=== PATIENT | female | born 1935 | race Caucasian/White ===

== ENCOUNTER 2017-08-27 19:47 | Emergency (ER) | payer MEDICARE, SELFPAY ==
[2017-08-27 19:48] VITALS: BP 156/69; PULSE 93; RESP 17; TEMP 36.5; O2SAT 95; BMI 40.7
[2017-08-27] MEDS: Ondansetron 4 MG/2 ML Vial IV (21:28)
--- NOTE | 2017-08-27 21:35 | RAD_ITS ---
STUDY: X-RAY - RIGHT KNEE REASON FOR EXAM: Female, 82 years old. Pain in right knee. TECHNIQUE: 3 view(s) of the knee. COMPARISON: None. FINDINGS: Normal visualized distal femur. Normal visualized proximal tibia and fibula. Normal proximal tibiofibular articulation. There is mild degenerative arthrosis of the medial femorotibial compartment. There is mild degenerative arthrosis of the lateral femorotibial compartment. There is mild degenerative arthrosis of the patellofemoral articulation. There is a soft tissue prominence in the suprapatellar region suggesting a joint effusion. The soft tissue structures are unremarkable. RAD/Knee 3 Views IMPRESSION: Degenerative changes. Joint effusion. Electronically Signed: Haylie Hudson MD at 21:58 EST Tel , Service support ,
[2017-08-27 21:54] LABS: Erythrocyte Sedimentation Rate 43 mm/hr (0-30)
[2017-08-27 21:55] LABS: Absolute Lymphocyte Count 2.56 X10^3/ul (0.83-4.51); Absolute Neutrophil Count 7.5 X10^3/uL (2.0-7.7); Basophil# 0.04 X10^3/uL; Basophil% 0.4 % (0-1); Eosinophil# 0.15 X10^3/uL; Eosinophils% 1.3 % (0-5); Hematocrit 40.3 % (37-47); Hemoglobin 13.3 g/dl (12.0-15.0); Lymphocyte # 2.56 X10^3/ul (4.0); Lymphocyte % 22.9 % (19-41); Mean Corpuscular Hgb 29.4 pg (27.0-32.0); Mean Corpuscular Volume 89.2 fL (81-99); Mean Platelet Vol. 10.1 fl (6.2-12.0); Monocyte# 0.94 X10^3/uL; Monocyte% 8.4 % (0-10); Neutrophil # 7.47 X10^3/uL (2.7-7.7); Neutrophil % 66.8 % (47-70); Platelet Count 256 K/mm3 (150-450); RBC Distribution Width CV 13.7 % (11.6-14.6); RBC Distribution Width SD 44.7 fl (35.1-43.9); Red Blood Count 4.52 M/mm3 (4.2-5.4); White Blood Count 11.2 K/mm3 (4.4-11.0)
[2017-08-27 21:59] LABS: POSITIVE COUNT NO; POSITIVE DIFFERENTIAL NO; POSITIVE MORPHOLOGY NO
[2017-08-27 22:08] LABS: CPK Total, Creatine Kinase 91 U/L (26-192)
[2017-08-27 22:16] VITALS: BP 148/67; PULSE 71; RESP 15; O2SAT 94
[2017-08-27 22:17] LABS: ALB/GLOB Ratio 0.8 RATIO (0.9-2.4); AST(SGOT) 20 U/L (15-37); Alanine Aminotransfer ALT/SGPT 28 U/L (13-56); Albumin, Serum 3.5 g/dL (3.2-5.0); Alkaline Phosphatase 73 U/L (45-117); Anion Gap 9 (5-15); BUN 29 mg/dL (7-18); BUN/Creat Ratio 23.8 RATIO (10-20); Calcium,Total 9.9 mg/dL (8.5-10.1); Chloride 105 mmol/L (98-107); Creatinine, Serum 1.22 mg/dL (0.55-1.02); EST Glomerular Filtration Rate 45 mL/min (>60); Est Glom Filt Rate - Afr Amer 54 mL/min (>60); Estimated Creatinine Clearance 29.92 ml/min; Globulin 4.2 g/dL (2.2-4.2); Glucose 148 mg/dL (74-106); Potassium 4.2 mmol/L (3.5-5.1); Protein, Total 7.7 g/dL (6.4-8.2); Sodium Level 139 mmol/L (136-145)
--- NOTE | 2017-08-27 22:19 | ED.RN ---
PT SON CAME TO NURSES STATION PT C/O EPIGASTRIC AND CHEST PAIN AND NAUSEA. DR. MCLEAN INFORMED. PHENERGAN ORDERED. THIS RN PLACED PT ON MONITOR. O2 PLACED FOR PT ROOM AIR SAT IN 88%, NOW 95 ON 2L NC. PT REPORTS PAIN IS GETTING BETTER BUT IS STILL PRESENT. PT REPORTS THAT SHE HAS NOT BEEN TAKING HER MEDICATION FOR HER GERD AND HIATAL HERNIA.
--- NOTE | 2017-08-27 22:22 | EKG12_ITS ---
Test Reason : CP Blood Pressure : / mmHG Vent. Rate : 075 BPM Atrial Rate : 075 BPM P-R Int : 200 ms QRS Dur : 076 ms QT Int : 382 ms P-R-T Axes : 071 017 048 degrees QTc Int : 426 ms Normal sinus rhythm Normal ECG Confirmed by MARTINEZ LAINEZ, FREEMAN ([id number]), newspaper editor ROBIN PANG ([id number]) on 08/29/2017 2:23:39 PM Referred By: MARSHA Confirmed By:FREEMAN HENRIQUEZ MD
--- NOTE | 2017-08-27 22:31 | ED.DCSUM_ITS ---
- ER Visit Summary Date of Service: 08/27/17 Chief Complaint: [Right knee pain] History of Present Illness: The patient is a 82 F [presents to the emergency department with complaint of right knee pain that started today. Patient states that 2 weeks ago she started with pain in her left hip patient states that that pain was severe but then resolved after several days. Patient subsequently developed pain in both knees that was severe and she was going to follow-up with her primary care physician today however the pain in both knees seem to resolve today and the weather was bad so she did not go to her appointment. Patient states that the pain in the left knee has left but now she has severe pain in her right knee. Patient denies any trauma. Patient denies any fever. And was on antibiotics for urinary tract infection that she finished about a week ago. Patient states that she had an upper respiratory infection about 3 weeks ago.] Physical Examination: [HEENT-PERRLA, EOMI. Cranial nerves II through XII grossly intact. TMs clear. Mucous membranes moist. No adenopathy. Cardiovascular-regular rate and rhythm without murmur or ectopy Lungs-clear to auscultation, chest wall stable without crepitus or subcu emphysema Abdomen-normoactive bowel sounds, soft, nontender, no rebound or rigidity, no peritoneal signs. Extremities-intact ?4, normal range of motion, normal pulses, atraumatic] right knee-patient has small joint effusion noted. There is no erythema or warmth noted. Patient has pain with flexion extension of the knee. She is neurovascular intact distally with normal sensation normal pulses. Comment this exam difficult due to patient unable to tolerate. Test Results: [Rays of the right knee showed a small joint effusion as well as degenerative changes. CBC with differential her white count 11.2, hemoglobin 13 , hematocrit 40, platelets 256. Chemistries were unremarkable. LFTs were normal. CPK was 91. Sed rate was elevated at 43.] Emergency Department Course and Treatment: [Patient was medicated with morphine and Zofran initially and she continued to complain of significant nausea and was given a dose of Phenergan. Patient started complaining of some epigastric discomfort therefore the nursing staff ordered an EKG that showed a sinus rhythm with a ventricular rate of 75 bpm with no acute ST segment changes. Patient was medicated with prednisone 20 mg p.o.] Treatment Plan: [I had a discussion with patient as I suspect her symptoms may be possibly due to gout. Patient is willing to take prednisone for 3 days and she is advised to monitor her blood sugars. Will be given a prescription for [place] for pain. Patient advised to follow-up with her primary care physician within next 3-5 days.] Disposition: [Discharged to home in stable condition] Impression: [Right knee pain-suspect gouty arthritis] This note was generated with [employer] dictation software. It may contain incorrect words, spelling, and punctuation that were not noted in review of the chart prior to signing ED Disposition - Plan for ED Patient: Chief Complaint: Lower Extremity Injury Referrals: Philip Todd MD [Primary Care Provider] -
--- NOTE | 2017-08-27 22:33 | DCINST.ED_ITS ---
ED Disposition - Plan for ED Patient: Chief Complaint: Lower Extremity Injury Instructions: ED Knee Pain [facility] Prescriptions: Hydrocodone Bitart/Apap 5-325 [[place] 5/325] 1 - 2 tab PO Q4H PRN PRN 5 Days #20 tab PRN Reason: Pain Prednisone 10 mg PO BID #6 tab Referrals: Philip Todd MD [Primary Care Provider] - 3-5 Days
[2017-08-27] MEDS: HYDROcodone Bitartrate/Apap 5/325 Tablet PO (22:55)
[2017-08-27 22:58] VITALS: BP 165/64; PULSE 72; RESP 21; O2SAT 98
--- NOTE | 2017-08-27 23:04 | ED.RN ---
THIS RN REVIEWED PT HOME GOING PAPERWORK AND PRESCRIPTIONS. PT EDUCATED ON HOME PACK MEDICATION AND SIDE EFFECTS. PT VERBALIZES UNDERSTANDING OF INSTRUCTIONS AND MEDICATIONS. THIS RN D/C IV AND COVERED WITH 2X2 GAUZE DRESSING. MINIMAL BLEEDING NOTED. THIS RN ASSISTED PT IN GETTING DRESSED AND PLACED IN WHEELCHAIR. PT WHEEL TO FAMILY VEHICLE BY KHUSHBU LYNN. PT TO FOLLOW UP WITH DR. KUMAR.
== END 2017-08-27 23:14 | disposition home or self-care (01) ==
PROVIDERS: Emergency Provider Emergency Medicine; Family Provider Family Medicine; PCP Family Medicine
DX: M25.561 Pain in right knee (principal); R11.0 Nausea; R10.13 Epigastric pain; I10 Essential (primary) hypertension; E78.00 Pure hypercholesterolemia, unspecified; E11.9 Type 2 diabetes mellitus without complications; Z79.84 Long term (current) use of oral hypoglycemic drugs; Z79.82 Long term (current) use of aspirin; Z79.899 Other long term (current) drug therapy
CPT/HCPCS: 73562; 80053; 82550; 85025; 85652; 93005; 96374; 96375; 99285; A4216; J2405

== ENCOUNTER → 2017-10-31 14:30 | Outpatient (CLI) | payer MEDICARE, SELFPAY ==
--- NOTE | 2017-10-31 15:15 | EKG12_ITS ---
Test Reason : PRE OP Blood Pressure : / mmHG Vent. Rate : 076 BPM Atrial Rate : 076 BPM P-R Int : 186 ms QRS Dur : 084 ms QT Int : 372 ms P-R-T Axes : 045 024 067 degrees QTc Int : 418 ms Normal sinus rhythm Normal ECG Confirmed by RUPERTO LAINEZ, GEOVANNI ([id number]), video effects editor ROBIN PANG ([id number]) on 11/04/2017 2:04:25 PM Referred By: Baljit Pimentel Confirmed By:GEOVANNI HICKEY MD
[2017-10-31 17:15] LABS: Hemoglobin 13.9 g/dl (12.0-15.0); Mean Corp Hgb Conc 33.9 g/gl (32-36); Mean Corpuscular Hgb 30.2 pg (27.0-32.0); Mean Corpuscular Volume 88.9 fL (81-99); Mean Platelet Vol. 10.5 fl (6.2-12.0); Platelet Count 294 K/mm3 (150-450); RBC Distribution Width CV 14.3 % (11.6-14.6); RBC Distribution Width SD 46.1 fl (35.1-43.9); Red Blood Count 4.61 M/mm3 (4.2-5.4); White Blood Count 8.6 K/mm3 (4.4-11.0)
[2017-10-31 17:20] LABS: Scan Indicated on CBC? Y/N NO
[2017-10-31 17:28] LABS: Anion Gap 8 (5-15); BUN 18 mg/dL (7-18); BUN/Creat Ratio 16.4 RATIO (10-20); Calcium,Total 9.3 mg/dL (8.5-10.1); Chloride 107 mmol/L (98-107); EST Glomerular Filtration Rate 51 mL/min (>60); Est Glom Filt Rate - Afr Amer 61 mL/min (>60); Glucose 101 mg/dL (74-106); Potassium 3.9 mmol/L (3.5-5.1); Sodium Level 141 mmol/L (136-145)
== END ==
PROVIDERS: Family Provider Family Medicine; PCP Family Medicine; Visit Provider Physician Assistant
DX: Z01.818 Encounter for other preprocedural examination (principal); Z01.810 Encounter for preprocedural cardiovascular examination
CPT/HCPCS: 36415; 80048; 85027; 93005

== ENCOUNTER → 2018-06-19 10:24 | Outpatient (CLI) | payer MEDICARE, SELFPAY ==
--- NOTE | 2018-06-19 10:26 | CDU_ITS ---
Reason For Study: Carotid Stenosis Rt. Velocities/BP Lt. Velocities/BP Prox CCA 119/8.64 cm/sec. Prox CCA 70.7/14.1 cm/sec. Mid CCA 70.9/11.1 cm/sec. Mid CCA 55.7/12.3 cm/sec. Dist CCA 83.8/8.79 cm/sec. Dist CCA 206/30.1 cm/sec. Prox ICA 83.8/13.5 cm/sec. Prox ICA 176/44.9 cm/sec. Mid ICA 83.3/14.7 cm/sec. Mid ICA 130/14.1 cm/sec. Dist ICA 77.4/17.6 cm/sec. Dist ICA 87.9/20.5 cm/sec. Rt. ICA/CCA = 1.00. Lt. ICA/CCA = 2.49. Prox ECA 429/13.5 cm/sec. Prox ECA 294 cm/sec. Rt. Vert. 57/9.82 cm/sec. Lt. Vert. 28.8/4.76 cm/sec. Right Extracranial There is homogeneous, smooth atherosclerotic plaque noted in the right common carotid artery. The right common carotid artery is tortuous. There is heterogeneous, smooth atherosclerotic plaque noted in the right internal carotid artery. There is heterogeneous, irregular atherosclerotic plaque noted in the right external carotid artery. Antegrade flow is noted in the right vertebral artery. Left Extracranial There is heterogeneous, irregular atherosclerotic plaque noted in the left common carotid artery. There is heterogeneous, irregular atherosclerotic plaque noted in the left internal carotid artery. There is heterogeneous, irregular atherosclerotic plaque noted in the left external carotid artery. Antegrade flow is noted in the left vertebral artery. Procedure Carotid Duplex 16101. Exam performed in department. 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 50-69% stenosis left internal carotid--closer to 50% Moderate to severe stenosis left external carotid Patent and antegrade vertebrals bilaterally Ordering Physician: Michael Michel Referring Physician: Philip Todd Performed By: Andrew BOLTON RVT, Carrie and Student
--- OUTSIDE RECORDS SUMMARY | 2018-08-14 05:56 | XMS RPT_ITS ---
:1935 Author Organization OHIP Care Team Providers Name Role Phone Rodríguez CAMPBELL (PA-C) Attending Unavailable PHILIP TODD Attending Unavailable Rodríguez CAMPBELL (PA-C) Referring Unavailable ANTHONY NUNEZ Attending Unavailable PHILIP TODD Referring Unavailable PHILIP TODD Attending Unavailable ANTHONY NUNEZ Attending Unavailable ANTHONY NUNEZ Referring Unavailable ANTHONY NUNEZ Referring Unavailable PHILIP TODD Referring Unavailable Rodríguez CAMPBELL (PA-C) Referring Unavailable DAVEY CONCEPCION ([facility]) Attending Unavailable Rodríguez CAMPBELL (PA-C) Attending Unavailable Rodríguez CAMPBELL (PA-C) Referring Unavailable Rodríguez CAMPBELL (PA-C) Attending Unavailable PHILIP TODD Referring Unavailable Rodríguez CAMPBELL (PA-C) Attending Unavailable PHILIP TODD Referring Unavailable PHILIP TODD Referring Unavailable PHILIP TODD Attending Unavailable Rodríguez CAMPBELL (PA-C) Referring Unavailable PHILIP TODD Referring Unavailable PHILIP TODD Attending Unavailable CELIO MOISE DPRodríguez Admitting Unavailable CELIO MOISE DPRodríguez Attending Unavailable CELIO MOISE DPM Primary Care Unavailable PHILIP TODD Consulting Unavailable PROVIDER, UNKNOWN Consulting Unavailable Anand, Michael Attending Unavailable Cebul, Michael Referring Unavailable Alvordton, Philip Primary Care Unavailable Cebul, Michael Consulting Unavailable Cebul, Michael Attending Unavailable Peyton, Philip Referring Unavailable Cebul, Michael Attending Unavailable Cebul, Michael Referring Unavailable Peyton, Philip Primary Care Unavailable Warren, Brent Attending Unavailable Baljit Pimentel Referring Unavailable Loren, Baljit Attending Unavailable Baljit Pimentel Referring Unavailable Peyton, Philip Primary Care Unavailable Peyton, Philip Primary Care Unavailable Lisa Mariscal Attending Unavailable PROBLEMS PROBLEMS DATE TYPE CONDITION / CODE ATTENDING STATUS SOURCE 06/19/2018 Unknown I65.23 - Occlusion Cekeri, Michael Active [place] and stenosis of Community bilateral carotid Hospital arteries / Repository I65.23(ICD-10) 06/04/2018 Active Dorsalgia, Active [facility] unspecified / [facility] [place] M54.9(ICD-10) Repository 06/04/2018 Active Pain in right NA Active [facility] shoulder / [facility] [place] M25.511(ICD-10) Repository 05/29/2018 Active 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 [facility] [place] therapy / Repository Z79.899(ICD-10) 02/09/2018 Active Disorder of bone, NA Active [facility] unspecified / [facility] [place] M89.9(ICD-10) Repository 02/09/2018 Active Disorder of NA Active [facility] cartilage, [facility] [place] unspecified / Repository M94.9(ICD-10) 02/09/2018 Active Stress fracture, Active [facility] right tibia, [facility] [place] sequela / Repository M84.361S(ICD-10) 07/31/2007 Active Essential Active [facility] (primary) [facility] [place] hypertension / Repository I10(ICD-10) 12/16/2017 Unknown I48.0 - Paroxysmal Warren, Brent Active [facility] atrial Community fibrillation / Hospital I48.0(ICD-10) Repository 09/29/2017 Active 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, [facility] [place] right knee / Repository M17.11(ICD-10) 09/18/2017 Active Unknown / ANTHONY NUNEZ Active [facility] UNK(Unknown) [place] Repository 08/12/2017 Active Chronic kidney NA Active [facility] disease, stage 3 [facility] [place] (moderate) / Repository N18.3(ICD-10) 09/03/2017 Active 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 / E11.21(ICD-10) 09/03/2017 Active Cramp and spasm / NA Active [facility] R25.2(ICD-10) [place] Repository 09/03/2017 Active Pain in right knee NA Active [facility] / M25.561(ICD-10) [place] Repository 08/28/2017 Unknown M25.561 - Pain in Ungur, Remus Active [place] right knee / [facility] M25.561(ICD-10) Hospital Repository PROCEDURES PROCEDURES No Procedure Records FoundRESULTS RESULTS SURGERY VISIT REPORT Observed: 06/26/2018 Status: F Source: [place] 4:48 PM [facility] REPOSITORY [facility] [address] [place] [address] [address] [place] [address] OFFICE VISIT Date of Service: 06/26/18 MR#: [id number] Acct: [id number] Name: DEBBIE KENNEY Rep #: [id number] : 1935 Provider: Michael Michel MD Age/Sex: 82/F Location: [facility] Status: Signed Intake Vital Signs06/26/18 Height 5 ft 3 in 06/26/18 Weight: 229 lb 5 oz 06/26/18 Body Mass Index (BMI) 40.6 06/26/18 Blood Pressure 162/68 H Intake Visit Reasons: 1 YR F/U Carotid US [facility] 06/19 Chief Complaint: yearly carotid US 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: No Is patient in pain?: No Allergies morphine Adverse Reaction (Intermediate, Verified 06/26/18 13:12) mental status change meperidine HCl [From Demerol] Adverse Reaction (Mild, Verified 06/26/18 13:12) mental status change Medications Ascorbic Acid [Vitamin C] 500 mg PO DAILY@0800 07/29/14 [History Confirmed 06/26/18] Calcium Carb/Vitamin D [Os-Syd 500MG + D] 1 tab PO DAILY@0800 07/29/14 [History Confirmed 06/26/18] Cimetidine [Tagamet Hb] 200 mg PO DAILY 07/29/14 [History Confirmed 06/26/18] Latanoprost 0.005% [Xalatan Opthalmic] 1 drp EACH EYE QHS 07/29/14 [History Confirmed 06/26/18] Lisinopril [Zestril] 10 mg PO DAILY 07/29/14 [History Confirmed 06/26/18] [place]-3 Fatty Acids/Fish Oil [[place] 3 1,000 mg Softgel] 1 ea PO DAILY 07/29/14 [History Confirmed 06/26/18] glipiZIDE [Glucotrol] 5 mg PO DAILY@0730 07/29/14 [History Confirmed 08/27/17] Nateglinide [Starlix] 60 mg PO TID 08/27/17 [History Confirmed 06/26/18] hydroCHLOROthiazide [Hydrochlorothiazide] 12.5 mg PO DAILY 08/27/17 [History Confirmed 08/27/17] ascorbic acid (vitamin C) 500 mg capsule mg PO cap 06/26/18 [History Confirmed 06/26/18] aspirin 81 mg chewable tablet 81 mg PO .qod tab 06/26/18 [History Confirmed 06/26/18] cinnamon bark 500 mg capsule mg PO cap 06/26/18 [History Confirmed 06/26/18] metoprolol succinate ER 50 mg tablet,extended release 24 hr 50 mg PO DAILY 06/26/18 [History Confirmed 06/26/18] minerals tablet tab PO tab 06/26/18 [History Confirmed 06/26/18] Is last menstrual period known: No Post menopausal: Yes Patient : No PFSH Medical History Bilateral carotid artery stenosis (Acute) Bilateral extracranial carotid artery stenosis (Acute) GERD (gastroesophageal reflux disease) (Acute) Hyperlipidemia (Acute) HTN (hypertension) (Chronic) Surgical History History of cataract extraction (Acute) History of cholecystectomy (Acute) History of hysterectomy (Acute) History of umbilical hernia repair (Acute) Family History Brother Diabetes Heart disease Hypertension Colon cancer Mother Hypertension Social History Smoking Status: Never smoker HPI HPI HPI: DEBBIE KENNEY, is a 82 F who presents to the office today for surgical follow-up regarding extracranial carotid artery occlusive disease. 82-year-old Joaquin female. At the [facility] on June 19, 2018 she had bilateral carotid duplex imaging. Peak systolic velocity involving the right internal carotid is 83 cm/s. Flow consistent with less than 50% stenosis. There is severe stenosis of the right external carotid. On the left peak systolic velocity within the distal common carotid is 206 cm/s and within the proximal internal carotid is 176 cm second peak systolic consistent with 50- 69% stenosis. This is compared to a previous examination performed April 24, 2017. The velocities are essentially unchanged bilaterally. She is not had any hospitalizations or central neurologic symptoms since her last visit a year ago. The patient however states that she has come off of her statin medication. She feels that she has done a lot of research and that the consequences of the statin medications outweigh the benefits. ROS General General: No weight change, appetite, fatigue, colon cancer, breast cancer or weakness HEENT HEENT: Yes eye surgery; no difficulty swallowing, eye injury, swollen glands or hoarseness Endo Endocrine: Yes diabetes mellitus; no thyroid disease, thyroid cancer, Hair loss, heat intolerance or cold intolerance Musc Musculoskeletal: Yes back problems and arthritis; no rheumatoid arthritis, gout or joint pain Cardio Cardiovascular: Yes high blood pressure; no murmur, pacemaker, heart disease, atrial fibrillation, heart attack, heart stent, palpitations, shortness of breat with exertion or chest pain Resp Respiratory: No shortness of breath, No sleep apnea, No cough, No COPD, No asthma, No emphysema, No wheezing Gastro Gastrointestinal: No abdominal pain, No nausea or vomiting, No diarrhea, No constipation, No blood in stool, Yes acid reflux, No hemorrhoids, No ulcers, No gallbladder problem, No black,tarry stools Star Hematologic: No blood thinners, No blood disorders, No bleeding, No anemia, No blood clots Neuro Neurologic: No weakness Exam Neck Other: Neck is supple, nontender, carotids are 2+ I do not detect a carotid bruit Cardio Heart Sounds: no murmurs Assessment AND Plan Problems 1. Bilateral carotid artery stenosis I65.23 Plan No hemodynamically significant disease involving the right extracranial internal carotid although the right external carotid has severe stenosis. Stable 50-69% stenosis of the left internal carotid unchanged from 1 year ago. Asymptomatic patient. It is of note that I have advised the patient that statin medication is typically recommended to help stabilize carotid plaque and limit progression of disease. She is adamant that she will not be resuming that medication. She is interested however in following up on her carotid occlusive disease. We will obtain carotid duplex imaging at 1 year. She has had an opportunity to ask and have questions answered. She is aware of her increased risk for stroke. She has had an opportunity to ask and have questions answered. I very much appreciate the ongoing opportunity of assisting with her surgical care CC: Dr. Philip Michel M.D., F.A.C.S. Coding Level of Care Code Off vis,est,level 2 Diagnoses Bilateral carotid artery stenosis I65.23 06/26/18 1648 <Electronically signed by Michael Michel MD> Date Michael Michel MD Cosigner Signature: Date (if applicable) CC: Philip Todd MD PROGRESS Observed: 06/26/2018 Status: COMPLETED Source: [place] 3:11 PM [facility] REPOSITORY HNO ID: [id number] Author: Philip Todd Service: (none) Author Type: Physician Type: Progress Notes Filed: 06/26/2018 3:20 PM Note Text: Increase to 20 mg and recheck in two weeks. PROGRESS Observed: 06/26/2018 Status: COMPLETED Source: [place] 3:02 PM [facility] REPOSITORY HNO ID: [id number] Author: Lizandro Emerson Ma Service: (none) Author Type: (none) Type: Progress Notes Filed: 06/26/2018 3:20 PM Note Text: Patient presents for blood pressure check. True BP done with average of 144/60. Patient did bring list of b/p from home. True BP and patient's list given to Dr. Todd for review. Per Dr. Todd, increase Lisinopril to 20 mg daily and call back in two weeks with b/p readings. CNOV Observed: 06/26/2018 Status: COMPLETED Source: [place] 2:40 PM [facility] REPOSITORY Office Visit (FAMPWS) DEBBIE KENNEY ([id number]) 1935 F Date Time Provider Department 06/26/18 2:40 PM [facility] During your visit today, we recorded the following information about you: Lizandro Emerson Ma 06/26/2018 3:20 PM Signed Patient presents for blood pressure check. True BP done with average of 144/60. Patient did bring list of b/p from home. True BP and patient's list given to Dr. Todd for review. Per Dr. Todd, increase Lisinopril to 20 mg daily and call back in two weeks with b/p readings. Philip Todd MD 06/26/2018 3:20 PM Signed Increase to 20 mg and recheck in two weeks. Referring Provider: SELF [200] Allergies As of Date: 06/26/2018 Noted Allergy Reaction DEMEROL (MEPERIDINE (PF)) 07/11/2005 1 - Mental Status Change LEVAQUIN (LEVOFLOXACIN) 08/11/2014 8 - GI Upset MORPHINE 01/28/2018 11 - Vomiting Date Reviewed: 06/04/2018 Reviewed by: Omaira Corona Ma - Fully Assessed Reason for Visit: Blood Pressure Check [195] Primary Visit Diagnosis:Hypertension, unspecified type [I10] Other Visit Diagnoses:Elevated blood pressure reading [R03.0] Essential hypertension, benign [I10] Order(s):lisinopril (ZESTRIL, PRINIVIL) 20 mg tabletTake 1 tablet by mouth once daily.Disp: 30 tabletRfl: 3 Prescriptions as of 06/26/2018 Sig: LISINOPRIL 20 MG TABLET Take 1 tablet by mouth once d* METOPROLOL SUCCINATE ER 50 MG* Take 1 tablet by mouth once d* NATEGLINIDE 60 MG TABLET Take 1 tablet by mouth three * ACETAMINOPHEN 500 MG CAPSULE Take 1,000 mg by mouth as nee* COMPOUNDED PRESCRIPTION Primal Force for joints COMPOUNDED PRESCRIPTION Artery Cleanse COMPOUNDED PRESCRIPTION Cardio Jackson Healthy heart* OMEGA 0-KYZ-[id number]-OTHER OM3-D3 * Take by mouth. ASPIRIN 81 MG TABLET,DELAYED * Take 81 mg by mouth every oth* CINNAMON BARK 500 MG CAPSULE Take 1 capsule by mouth once * ASCORBIC ACID (VITAMIN C) 500* Take 1 tablet by mouth once d* CALCIUM CARBONATE 500 MG (1,2* Take one(1) tablet daily. TAGAMET 300 MG TABLET Take one(1) tablet daily. XALATAN 0.005 % EYE DROPS one drop both eyes q hs Problem List As Of Date 06/26/2018 Noted Resolved DERMATOPHYTOSIS OF NAIL [B35.1] INVALID FOR* LUMBAGO [M54.5] PERS HX COLONIC POLYPS [Z86.010] More... DIVERTICULOSIS OF COLON W/O BLEED [K57.30] More... Unspecified hemorrhoids without mention of comp* 03/14/2016 More... 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 Medications Discontinued During This Encounter lisinopril (ZESTRIL, PRINIVIL) 10 mg* 90 t* 1 06/16/2018 06/26/2018 Route: ORAL Sig: Take 1 tablet by mouth once daily. Disc: Adjust Sig - Block E-Cancel Follow-up and Disposition History Recorded Encounter Status:Closed by LIZANDRO EMERSON MA on 06/26/18 CAROTID DUPLEX Observed: 06/19/2018 Status: F Source: [place] ULTRASOUND 2:05 PM [facility] REPOSITORY [facility] Cardiovascular Services [address] [place] [id number] Carotid Duplex Ultrasound 06/19/18 1030 MR#: [id number] Acct: [id number] Name: DEBBIE KENNEY Rep #: [id number] : 1935 82 From: Michael Michel MD Attending Dr: Michael Michel MD Status: REG CLI Ordering Dr: Michael Michel MD Date: 06/19/18 Location: [facility] Sex: F C Admitted: Reason For Study: Carotid Stenosis Rt. Velocities/BP Lt. Velocities/BP Prox CCA 119/8.64 cm/sec. Prox CCA 70.7/14.1 cm/sec. Mid CCA 70.9/11.1 cm/sec. Mid CCA 55.7/12.3 cm/sec. Dist CCA 83.8/8.79 cm/sec. Dist CCA 206/30.1 cm/sec. Prox ICA 83.8/13.5 cm/sec. Prox ICA 176/44.9 cm/sec. Mid ICA 83.3/14.7 cm/sec. Mid ICA 130/14.1 cm/sec. Dist ICA 77.4/17.6 cm/sec. Dist ICA 87.9/20.5 cm/sec. Rt. ICA/CCA = 1.00. Lt. ICA/CCA = 2.49. Prox ECA 429/13.5 cm/sec. Prox ECA 294 cm/sec. Rt. Vert. 57/9.82 cm/sec. Lt. Vert. 28.8/4.76 cm/sec. Right Extracranial There is homogeneous, smooth atherosclerotic plaque noted in the right common carotid artery. The right common carotid artery is tortuous. There is heterogeneous, smooth atherosclerotic plaque noted in the right internal carotid artery. There is heterogeneous, irregular atherosclerotic plaque noted in the right external carotid artery. Antegrade flow is noted in the right vertebral artery. Left Extracranial There is heterogeneous, irregular atherosclerotic plaque noted in the left common carotid artery. There is heterogeneous, irregular atherosclerotic plaque noted in the left internal carotid artery. There is heterogeneous, irregular atherosclerotic plaque noted in the left external carotid artery. Antegrade flow is noted in the left vertebral artery. Procedure Carotid Duplex [id number]. Exam performed in department. 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 50-69% stenosis left internal carotid--closer to 50% Moderate to severe stenosis left external carotid Patent and antegrade vertebrals bilaterally Ordering Physician: Michael Michel Referring Physician: Philip Todd Performed By: Andrew RDCS, BETSY, Viri and Student 06/19/18 1404 Date iMchael Michel MD CC: Michael Michel MD; Philip Todd MD Date Dictated: 06/19/18 1030 Date Transcribed: 06/19/18 1404 Legal Support Specialist: Signed XR SHLDR >/=3V Observed: 06/04/2018 Status: F Source: [place] AP/AIDAN AP/OTHR RT 11:46 AM [facility] REPOSITORY * * *Final Report* * * DATE OF EXAM: Jun 04 2018 11:46AM WOX [id number] - XR SHLDR >/=3V AP/AIDAN AP/OTHR RT / PROCEDURE REASON: Acute pain of right shoulder * * * * Physician Interpretation * * * * Right shoulder HISTORY: Shoulder pain FINDINGS: Three views were performed. No evidence of acute fracture or dislocation. Glenohumeral joint space: Marginal spurring of the glenoid without joint space narrowing. Acromio-humeral interval: within normal limits. No evidence of a subacromial spur. Acromio-clavicular joint: Within normal limits IMPRESSION: Mild glenohumeral degenerative joint disease Legal Support Specialist: [facility] Transcribe Date/Time: Jun 04 2018 12:19P Dictated by : ROB GUERRERO MD This examination was interpreted and the report reviewed and electronically signed by: ROB GUERRERO MD on Jun 04 2018 12:21PM EST [id number] XR RIB/CHST 3V AP Observed: 06/04/2018 Status: F Source: [place] RIB/OBL/CHST R 11:46 AM [facility] REPOSITORY * * *Final Report* * * DATE OF EXAM: Jun 04 2018 11:46AM WOX [id number] - XR RIB/CHST 3V AP RIB/OBL/CHST R / PROCEDURE REASON: Upper back pain * * * * Physician Interpretation * * * * RIGHT RIBS History: Upper back pain Findings: No evidence of acute fracture. No evidence of pneumothorax or effusion. IMPRESSION: No acute finding Legal Support Specialist: [facility] Transcribe Date/Time: Jun 04 2018 12:21P Dictated by : ORB GUERRERO MD This examination was interpreted and the report reviewed and electronically signed by: ROB GUERRERO MD on Jun 04 2018 12:23PM EST [id number] PROGRESS Observed: 06/04/2018 Status: COMPLETED Source: [place] 11:24 AM [facility] REPOSITORY HNO ID: [id number] Author: Delores Moreno Service: (none) Author Type: (none) Type: Progress Notes Filed: 06/04/2018 11:47 AM Note Text: Radiology Service Progress Note PATIENT NAME: Debbie Kenney DATE OF SERVICE: June 04, 2018 TIME: 11:24 AM PATIENT IDENTITY VERIFICATION COMPLETED USING TWO (2) METHODS: Patient confirmed name verbally and Date of . PATIENT GENDER DATA: Female. status: : No status: NO. PATIENT RELEVANT IMPLANT DATA REVIEWED: Not Applicable RADIOLOGY DEPARTMENT: General X-ray: Exam(s) Completed: Rib X-Ray: Right Upper Extremity X-Ray(s): Shoulder, AP / TRUE AP / AXILLARY right : PERIPHERAL IV DATA: Not applicable SIGNED BY: Delores Moreno June 04, 2018 11:24 AM PROGRESS Observed: 06/04/2018 Status: COMPLETED Source: [place] 10:41 AM [facility] RE[facility] O ID: [id number] Author: Philip Todd Service: (none) Author Type: Physician Type: Progress Notes Filed: 06/04/2018 12:05 PM Note Text: Patient presents with: F/U 3 Month HPI: Patient presents today for office visit for follow up. HYPERTENSION:bp is up today. No chest pain or edema. No palpitations. DM:sugars have been stable. No hypoglycemic spells. HLD: she declines going back on the statin drug. She knows risks of not treating. OA:knee still bother her at times. Using walker today PANCREAS: recommended repeat MRI of the pancreas., she declines. Understands risks of doing so. Wants to wait on spring. Wants to see if she is still here. Having issues with her right shoulder. She is having worsening issues with it. No trauma. Worse with movement. Tender in the anterior shoulder. No breast pain. Having issues with her back. In the thoracic region. Worse with cough or movement. No issues urinating. No radiation of the pain. No new shortness of breath. Due for carotid follow up. Had seen Dr. Michel. Offered to set her up for follow up Component Latest Ref Rng AND Units 01/28/2018 05/29/2018 Glucose 74 - 99 mg/dL 125 (H) BUN 7 - 21 mg/dL 20 Creatinine 0.58 - 0.96 mg/dL 1.08 (H) Sodium 136 - 144 mmol/L 139 Potassium 3.7 - 5.1 mmol/L 4.6 Chloride 97 - 105 mmol/L 102 CO2 22 - 30 mmol/L 25 Anion Gap 9 - 18 mmol/L 12 Calcium 8.5 - 10.2 mg/dL 9.9 eGFR- 59 eGFR-All Other Races . 49 Cholesterol, Total <200 mg/dL 204 (H) Triglyceride <150 mg/dL 209 (H) HDL Cholesterol >39 mg/dL 41 LDL Cholesterol <100 mg/dL 121 (H) Non HDL Cholesterol <130 mg/dL 163 (H) Fasting Time hrs 16 VLDL Cholesterol <30 mg/dL 42 (H) TC:HDL Ratio <5.10 4.98 LDL:HDL Ratio <2.54 2.95 (H) Hemoglobin A1C 4.3 - 5.6 % 6.3 (H) Estimated Average Glucose mg/dL 134 MEDICATIONS: Current Outpatient Prescriptions: metoprolol succinate ER (TOPROL XL) 50 mg 24 hr tablet Take 1 tablet by mouth once daily. lisinopril (ZESTRIL, PRINIVIL) 10 mg tablet Take 1 tablet by mouth once daily. nateglinide (STARLIX) 60 mg tablet Take 1 tablet by mouth three times daily before meals. Acetaminophen 500 mg cap Take 1,000 mg by mouth as needed. COMPOUNDED PRESCRIPTION Primal Force for joints COMPOUNDED PRESCRIPTION Artery Cleanse COMPOUNDED PRESCRIPTION Cardio Jackson Healthy heart/arteries OMEGA 0-QTC-GDJ-OTHER OM3-D3 ORAL Take by mouth. aspirin, enteric coated (ASPIRIN, ENTERIC COATED) 81 mg EC tablet Take 81 mg by mouth every other day. Cinnamon Bark (CINNAMON) 500 mg ORAL Cap Take 1 capsule by mouth once daily. ascorbic acid (VITAMIN C) 500 mg ORAL tablet Take 1 tablet by mouth once daily. calcium-vitamin D 500 mg(1,250mg) -200 unit ORAL per tablet Take one(1) tablet daily. cimetidine(TAGAMET 300 MG TAB) Take one(1) tablet daily. XALATAN 0.005 % EYE DROPS one drop both eyes q hs No current facility-administered medications for this visit. 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 - Benign neoplasm of colon - Diverticulosis of colon (without mention of hemorrhage) Diverticulosis - Glaucoma - HTN (hypertension) - Hyperlipidemia - Left carotid stenosis checking yearly - Lumbago - Macular pucker of both eyes stable - Other specified glaucoma - Posterior capsule opacification OD - Pseudophakia of both eyes stable - Ptosis of eyelid OU-stable - Snoring - Type II or unspecified type diabetes mellitus without mention of complication, not stated as uncontrolled PAST SURGICAL HISTORY Procedure Laterality Date - CATARACT EXTRACTION HX Bilateral 12 - COLONOSCOP W/ OR W/O [facility] SPEC 03/26/02 Colonoscopy - COLONOSCOP W/ OR W/O [facility] SPEC 05/18/2008 Colonoscopy - COLONOSCOP W/ OR W/O [facility] SPEC 01/13/14 Colonoscopy - REMOVAL GALLBLADDER 97 Cholecystectomy - REPAIR ING HERNIA,5+Y/O,REDUCIBL Hernia repair, inguinal - VAGINAL HYSTERECTOMY 77 Hysterectomy, vaginal FAMILY HISTORY Problem Relation Age of Onset - Heart Mother pacemaker - Hypertension Mother - Diabetes Sister - Colon Cancer Brother - Heart Brother mi - Diabetes Brother - Diabetes Father - Heart Father - Cancer Brother lung - Cancer Brother pancrease Social History Marital status: Spouse name: Years of education: Number of children: Social History Main Topics Smoking status: Never Smoker Smokeless tobacco: Never Used Alcohol use: No Drug use: No Reviewed current medications, allergies, past medical history, surgical history, family history and social history today. REVIEW OF SYSTEMS All other reviewed and negative other than HPI. HEALTH MAINTENANCE: Reviewed health maintenance issues today and recommended the following in detail. DTAP,TDAP,TD(2 - Tdap) due on 11/18/2001 INFLUENZA(1) due on 03/21/2018 URINE ALBUMIN:CREATININE RATIO due on 04/11/2018 FECAL OCCULT BLOOD due on 05/01/2018 VITALS: BP 166/74 Pulse 76 Wt 103.9 kg (229 lb) BMI 40.57 kg/m? Last 4 Encounter Wt Readings: Date: Wt: 06/04/2018 103.9 kg (229 lb) 02/05/2018 106.6 kg (235 lb) 01/28/2018 105.2 kg (232 lb) 09/25/2017 106.1 kg (234 lb) PHYSICAL EXAMINATION: General appearance: Well appearing, alert, in no acute distress, well-hydrated, well nourished. Skin: Skin color, texture, turgor normal, no suspicious rashes or lesions Head: Normocephalic, no masses, lesions, tenderness or abnormalities Chest wall: tender over posterior chest Lungs: lungs clear to auscultation. No wheezing, rhonchi, rales Heart: RRR without murmur, gallop, or rubs. No ectopy Abdomen: Normal abdominal exam, Abdomen soft, non-tender. Bowel sounds normal. No masses, organomegaly Extremities: No deformities, edema, skin discoloration, clubbing or cyanosis. Good capillary refill. Musculoskeletal: No joint swelling, deformity, or tenderness Shoulder: tender over the anterior shoulder. Negative range of motion. ASSESSMENT/PLAN: 1. Chronic renal insufficiency, stage 3 (moderate) (HCC) - ICD9: 585.3, ICD10: N18.3 (primary diagnosis) - call if any issues. 2. Pancreatic cyst - ICD9: 577.2, ICD10: K86.2 - will follow. Declines for now. 3. Bilateral carotid artery disease, unspecified type (HCC) - ICD9: 447.9, ICD10: I77.9 - see surgery. - CONSULT TO VASCULAR SURGERY 4. 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thy, unspecified whether predatory animal exterminator insulin use (HCC) - ICD9: 250.40, 583.81, ICD10: E11.21 Controlled. - Continue current medications - HGB A1C 5. Neuropathy (HCC) - ICD9: 355.9, ICD10: G62.9 - stable. 6. Mixed hyperlipidemia - ICD9: 272.2, ICD10: E78.2 - to be determined upon return of lab results - Continue current medication. - COMP METABOLIC PANEL - LIPID PANEL BASIC 7. Essential hypertension, benign - ICD9: 401.1, ICD10: I10 - suboptimal control - Goal of BP <130/80 8. Acute pain of right shoulder - ICD9: 719.41, ICD10: M25.511 - get xrays - XR SHOULDER GENERAL 3V OR MORE AP/TRUE AP/OTHER RT 9. Upper back pain - ICD9: 724.5, ICD10: M54.9 - get xray. - XR RIBS/CHEST 3V AP RIB/OBLS/CXR RT Philip Todd MD RTO in three months and prn. CNOV Observed: 06/04/2018 Status: COMPLETED Source: [place] 10:00 AM [facility] REPOSITORY Office Visit (FAMPWS) ANNE MARIEDEBBIE Jana ([id number]) 1935 F Date Time Provider Department 06/04/18 10:00 AM [facility] During your visit today, we recorded the following information about you: Pulse Blood pressure Weight 76/minute 166/74 103.9 kg Philip Todd MD 06/04/2018 12:05 PM Signed Patient presents with: F/U 3 Month HPI: Patient presents today for office visit for follow up. HYPERTENSION:bp is up today. No chest pain or edema. No palpitations. DM:sugars have been stable. No hypoglycemic spells. HLD: she declines going back on the statin drug. She knows risks of not treating. OA:knee still bother her at times. Using walker today PANCREAS: recommended repeat MRI of the pancreas., she declines. Understands risks of doing so. Wants to wait on spring. Wants to see if she is still here. Having issues with her right shoulder. She is having worsening issues with it. No trauma. Worse with movement. Tender in the anterior shoulder. No breast pain. Having issues with her back. In the thoracic region. Worse with cough or movement. No issues urinating. No radiation of the pain. No new shortness of breath. Due for carotid follow up. Had seen Dr. Michel. Offered to set her up for follow up Component Latest Ref Rng AND Units 01/28/2018 05/29/2018 Glucose 74 - 99 mg/dL 125 (H) BUN 7 - 21 mg/dL 20 Creatinine 0.58 - 0.96 mg/dL 1.08 (H) Sodium 136 - 144 mmol/L 139 Potassium 3.7 - 5.1 mmol/L 4.6 Chloride 97 - 105 mmol/L 102 CO2 22 - 30 mmol/L 25 Anion Gap 9 - 18 mmol/L 12 Calcium 8.5 - 10.2 mg/dL 9.9 eGFR- 59 eGFR-All Other Races . 49 Cholesterol, Total <200 mg/dL 204 (H) Triglyceride <150 mg/dL 209 (H) HDL Cholesterol >39 mg/dL 41 LDL Cholesterol <100 mg/dL 121 (H) Non HDL Cholesterol <130 mg/dL 163 (H) Fasting Time hrs 16 VLDL Cholesterol <30 mg/dL 42 (H) TC:HDL Ratio <5.10 4.98 LDL:HDL Ratio <2.54 2.95 (H) Hemoglobin A1C 4.3 - 5.6 % 6.3 (H) Estimated Average Glucose mg/dL 134 MEDICATIONS: Current Outpatient Prescriptions: metoprolol succinate ER (TOPROL XL) 50 mg 24 hr tablet Take 1 tablet by mouth once daily. lisinopril (ZESTRIL, PRINIVIL) 10 mg tablet Take 1 tablet by mouth once daily. nateglinide (STARLIX) 60 mg tablet Take 1 tablet by mouth three times daily before meals. Acetaminophen 500 mg cap Take 1,000 mg by mouth as needed. COMPOUNDED PRESCRIPTION Primal Force for joints COMPOUNDED PRESCRIPTION Artery Cleanse COMPOUNDED PRESCRIPTION Cardio Jackson Healthy heart/arteries OMEGA 6-DOL-CCR-OTHER OM3-D3 ORAL Take by mouth. aspirin, enteric coated (ASPIRIN, ENTERIC COATED) 81 mg EC tablet Take 81 mg by mouth every other day. Cinnamon Bark (CINNAMON) 500 mg ORAL Cap Take 1 capsule by mouth once daily. ascorbic acid (VITAMIN C) 500 mg ORAL tablet Take 1 tablet by mouth once daily. calcium-vitamin D 500 mg(1,250mg) -200 unit ORAL per tablet Take one(1) tablet daily. cimetidine(TAGAMET 300 MG TAB) Take one(1) tablet daily. XALATAN 0.005 % EYE DROPS one drop both eyes q hs No current facility-administered medications for this visit. 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 - Benign neoplasm of colon - Diverticulosis of colon (without mention of hemorrhage) Diverticulosis - Glaucoma - HTN (hypertension) - Hyperlipidemia - Left carotid stenosis checking yearly - Lumbago - Macular pucker of both eyes stable - Other specified glaucoma - Posterior capsule opacification OD - Pseudophakia of both eyes stable - Ptosis of eyelid OU-stable - Snoring - Type II or unspecified type diabetes mellitus without mention of complication, not stated as uncontrolled PAST SURGICAL HISTORY Procedure Laterality Date - CATARACT EXTRACTION HX Bilateral 12 - COLONOSCOP W/ OR W/O [facility] SPEC 03/26/02 Colonoscopy - COLONOSCOP W/ OR W/O [facility] SPEC 05/18/2008 Colonoscopy - COLONOSCOP W/ OR W/O [facility] SPEC 01/13/14 Colonoscopy - REMOVAL GALLBLADDER 97 Cholecystectomy - REPAIR ING HERNIA,5+Y/O,REDUCIBL Hernia repair, inguinal - VAGINAL HYSTERECTOMY 77 Hysterectomy, vaginal FAMILY HISTORY Problem Relation Age of Onset - Heart Mother pacemaker - Hypertension Mother - Diabetes Sister - Colon Cancer Brother - Heart Brother mi - Diabetes Brother - Diabetes Father - Heart Father - Cancer Brother lung - Cancer Brother pancrease Social History Marital status: Spouse name: Years of education: Number of children: Social History Main Topics Smoking status: Never Smoker Smokeless tobacco: Never Used Alcohol use: No Drug use: No Reviewed current medications, allergies, past medical history, surgical history, family history and social history today. REVIEW OF SYSTEMS All other reviewed and negative other than HPI. HEALTH MAINTENANCE: Reviewed health maintenance issues today and recommended the following in detail. DTAP,TDAP,TD(2 - Tdap) due on 11/18/2001 INFLUENZA(1) due on 03/21/2018 URINE ALBUMIN:CREATININE RATIO due on 04/11/2018 FECAL OCCULT BLOOD due on 05/01/2018 VITALS: BP 166/74 Pulse 76 Wt 103.9 kg (229 lb) BMI 40.57 kg/m? Last 4 Encounter Wt Readings: Date: Wt: 06/04/2018 103.9 kg (229 lb) 02/05/2018 106.6 kg (235 lb) 01/28/2018 105.2 kg (232 lb) 09/25/2017 106.1 kg (234 lb) PHYSICAL EXAMINATION: General appearance: Well appearing, alert, in no acute distress, well-hydrated, well nourished. Skin: Skin color, texture, turgor normal, no suspicious rashes or lesions Head: Normocephalic, no masses, lesions, tenderness or abnormalities Chest wall: tender over posterior chest Lungs: lungs clear to auscultation. No wheezing, rhonchi, rales Heart: RRR without murmur, gallop, or rubs. No ectopy Abdomen: Normal abdominal exam, Abdomen soft, non-tender. Bowel sounds normal. No masses, organomegaly Extremities: No deformities, edema, skin discoloration, clubbing or cyanosis. Good capillary refill. Musculoskeletal: No joint swelling, deformity, or tenderness Shoulder: tender over the anterior shoulder. Negative range of motion. ASSESSMENT/PLAN: 1. Chronic renal insufficiency, stage 3 (moderate) (HCC) - ICD9: 585.3, ICD10: N18.3 (primary diagnosis) - call if any issues. 2. Pancreatic cyst - ICD9: 577.2, ICD10: K86.2 - will follow. Declines for now. 3. Bilateral carotid artery disease, unspecified type (HCC) - ICD9: 447.9, ICD10: I77.9 - see surgery. - CONSULT TO VASCULAR SURGERY 4. 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thy, unspecified whether skilled nursing insulin use (HCC) - ICD9: 250.40, 583.81, ICD10: E11.21 Controlled. - Continue current medications - HGB A1C 5. Neuropathy (HCC) - ICD9: 355.9, ICD10: G62.9 - stable. 6. Mixed hyperlipidemia - ICD9: 272.2, ICD10: E78.2 - to be determined upon return of lab results - Continue current medication. - COMP METABOLIC PANEL - LIPID PANEL BASIC 7. Essential hypertension, benign - ICD9: 401.1, ICD10: I10 - suboptimal control - Goal of BP <130/80 8. Acute pain of right shoulder - ICD9: 719.41, ICD10: M25.511 - get xrays - XR SHOULDER GENERAL 3V OR MORE AP/TRUE AP/OTHER RT 9. Upper back pain - ICD9: 724.5, ICD10: M54.9 - get xray. - XR RIBS/CHEST 3V AP RIB/OBLS/CXR RT Philip Todd MD RTO in three months and prn. Referring Provider: Rodríguez CAMPBELL (YAW) [[id number]] Allergies As of Date: 06/04/2018 Noted Allergy Reaction DEMEROL (MEPERIDINE (PF)) 07/11/2005 1 - Mental Status Change LEVAQUIN (LEVOFLOXACIN) 08/11/2014 8 - GI Upset MORPHINE 01/28/2018 11 - Vomiting Date Reviewed: 06/04/2018 Reviewed by: Omaira Corona Ma - Fully Assessed Reason for Visit: F/U 3 Month [443] Primary Visit Diagnosis:Chronic renal insufficiency, stage 3 (moderate) (HCC) [N18.3] Other Visit Diagnoses:Pancreatic cyst [K86.2] Bilateral carotid artery disease, unspecified type (HCC) [I77.9] 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thy, unspecified whether skilled nursing insulin use (HCC) [E11.21] Neuropathy (HCC) [G62.9] Mixed hyperlipidemia [E78.2] Essential hypertension, benign [I10] Acute pain of right shoulder [M25.511] Upper back pain [M54.9] Order(s):metoprolol succinate ER (TOPROL XL) 50 mg 24 hr tabletTake 1 tablet by mouth once daily.Disp: 90 tabletRfl: 1 CONSULT TO VASCULAR SURGERY [9042] Order #: [id number]: 1 XR RIBS/CHEST 3V AP RIB/OBLS/CXR RT [9096107] Order #: [id number] FUTURE XR SHOULDER GENERAL 3V OR MORE AP/TRUE AP/OTHER RT [6244241] Order #: [id number] FUTURE HGB A1C [KTJQI2V] Order #: [id number] FUTURE COMP METABOLIC PANEL [SQCMP] Order #: [id number] FUTURE LIPID PANEL BASIC [SQLIPB] Order #: [id number] FUTURE Prescriptions as of 06/04/2018 Sig: METOPROLOL SUCCINATE ER 50 MG* Take 1 tablet by mouth once d* LISINOPRIL 10 MG TABLET Take 1 tablet by mouth once d* NATEGLINIDE 60 MG TABLET Take 1 tablet by mouth three * ACETAMINOPHEN 500 MG CAPSULE Take 1,000 mg by mouth as nee* COMPOUNDED PRESCRIPTION Primal Force for joints COMPOUNDED PRESCRIPTION Artery Cleanse COMPOUNDED PRESCRIPTION Cardio Jackson Healthy heart* OMEGA 8-TYZ-LLO-OTHER OM3-D3 * Take by mouth. ASPIRIN 81 MG TABLET,DELAYED * Take 81 mg by mouth every oth* CINNAMON BARK 500 MG CAPSULE Take 1 capsule by mouth once * ASCORBIC ACID (VITAMIN C) 500* Take 1 tablet by mouth once d* CALCIUM CARBONATE 500 MG (1,2* Take one(1) tablet daily. TAGAMET 300 MG TABLET Take one(1) tablet daily. XALATAN 0.005 % EYE DROPS one drop both eyes q hs Problem List As Of Date 06/04/2018 Noted Resolved DERMATOPHYTOSIS OF NAIL [B35.1] INVALID FOR* LUMBAGO [M54.5] PERS HX COLONIC POLYPS [Z86.010] More... DIVERTICULOSIS OF COLON W/O BLEED [K57.30] More... Unspecified hemorrhoids without mention of comp* 03/14/2016 More... 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 Medications Discontinued During This Encounter metoprolol succinate ER (TOPROL XL) * 30 t* 1 06/02/2018 06/04/2018 Route: ORAL Sig: Take 1 tablet by mouth once daily. Disc: Reason for discontinue is not on file. Follow-up and Disposition History Recorded Encounter Status:Closed by PHILIP TODD MD on 06/04/18 LIPID PANEL, BASIC Collected: 05/29/2018 Status: F Source: [place] 9:55 AM [facility] REPOSITORY TYPE CODE TESTS RESULT OUT OF REFERENCE UNITS RANGE LAB CHOL <200 mg/dL Cholesterol High 204 Result Comment: <200 mg/dL, Desirable 200-239 mg/dL, Borderline high >239 mg/dL, High LAB TRIGLY <150 mg/dL Triglyceride High 209 Result Comment: <150 mg/dL, Normal 150-199 mg/dL, Borderline high 200-499 mg/dL, High >499 mg/dL, Very high LAB HDL >39 mg/dL HDL-Cholesterol 41 Result Comment: 40-59 mg/dL, Acceptable >59 mg/dL, High: Negative risk factor for coronary heart disease <40 mg/dL, Low: Positive risk factor for coronary heart disease LAB LDL <100 mg/dL LDL-Cholesterol High 121 Result Comment: <100 mg/dL, Optimal 100-129 mg/dL, Near optimal/above optimal 130-159 mg/dL, Borderline high 160-189 mg/dL, High >189 mg/dL, Very high Secondary prevention optimal LDL Cholesterol levels are recommended to be < 70 mg/dL LAB NONHDL <130 mg/dL Non HDL High Cholesterol 163 Result Comment: <130 mg/dL, Optimal 130-159 mg/dL, Near optimal/above optimal 160-189 mg/dL, Borderline high 190-219 mg/dL, High >219 mg/dL, Very high Secondary prevention optimal non HDL Cholesterol levels are recommended to be < 100 mg/dL LAB FT hrs Fasting Time 16 LAB VLDL <30 mg/dL High VLDL Cholesterol 42 LAB TCHDL <5.10 TC:HDL Ratio 4.98 LAB LDLHDL <2.54 High LDL:HDL Ratio 2.95 Result Comment: Reference: 1. National Cholesterol Education Program ATP III Guideline At-A-Glance Quick Desk Reference: National Heart, Lung, and Blood [place]. National Institutes of Health. 2001: NIH Publication No. 01-3305. 2. An International Atherosclerosis Society position paper: global recommendations for the management of dyslipidemia: executive summary, Atherosclerosis. 2014: 232(2):410-413. Performed By: #### LIPB #### [facility] [address] [place], [place] [address] LAW Observed: 05/19/2018 Status: COMPLETED Source: [place] 12:00 AM [facility] REPOSITORY Patient Outreach (FAMPST) DEBBIE KENNEY ([id number]) 1935 F Date Time Provider Department [facility]19/[facility] During your visit today, we recorded the following information about you: Allergies As of Date: 05/19/2018 Noted Allergy Reaction DEMEROL (MEPERIDINE (PF)) 07/11/2005 1 - Mental Status Change LEVAQUIN (LEVOFLOXACIN) 08/11/2014 8 - GI Upset MORPHINE 01/28/2018 11 - Vomiting Date Reviewed: 02/26/2018 Reviewed by: Julianna Carey LPN - Fully Assessed Visit Diagnosis:Medication management [Z79.899] Order(s):LIPID PANEL BASIC [SQLIPB] Order #: [id number] FUTURE Prescriptions as of 05/19/2018 Sig: X METOPROLOL SUCCINATE ER 50 MG* Take 1 tablet by mouth once d* X LISINOPRIL 10 MG TABLET Take 1 tablet by mouth once d* X NATEGLINIDE 60 MG TABLET Take 1 tablet by mouth three * ACETAMINOPHEN 500 MG CAPSULE Take 1,000 mg by mouth as nee* COMPOUNDED PRESCRIPTION Primal Force for joints COMPOUNDED PRESCRIPTION Artery Cleanse COMPOUNDED PRESCRIPTION Cardio Jackson Healthy heart* OMEGA 4-WAJ-MIW-OTHER OM3-D3 * Take by mouth. ASPIRIN 81 MG TABLET,DELAYED * Take 81 mg by mouth every oth* CINNAMON BARK 500 MG CAPSULE Take 1 capsule by mouth once * ASCORBIC ACID (VITAMIN C) 500* Take 1 tablet by mouth once d* CALCIUM CARBONATE 500 MG (1,2* Take one(1) tablet daily. TAGAMET 300 MG TABLET Take one(1) tablet daily. XALATAN 0.005 % EYE DROPS one drop both eyes q hs Problem List As Of Date 05/19/2018 Noted Resolved DERMATOPHYTOSIS OF NAIL [B35.1] INVALID FOR* LUMBAGO [M54.5] PERS HX COLONIC POLYPS [Z86.010] More... DIVERTICULOSIS OF COLON W/O BLEED [K57.30] More... Unspecified hemorrhoids without mention of comp* 03/14/2016 More... 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] INVALID FOR* Pain in right knee [M25.561] INVALID FOR* Abnormal mammogram [R92.8] INVALID FOR* Candidiasis of skin and nail [B37.2] INVALID FOR*04/17/2017 Pancreatic cyst [K86.2] INVALID FOR* CKD (chronic kidney disease) stage 1, GFR 90 ml*INVALID FOR*08/12/2017 Chronic renal insufficiency, stage 3 (moderate)*INVALID FOR* Encounter Status:Closed by MARY CARMEN HERNANDEZUSER on 06/19/18 PROGRESS Observed: 03/17/2018 Status: COMPLETED Source: [place] 1:26 PM [facility] RE[facility] O ID: [id number] Author: Trixie Bentley LPN Service: (none) Author Type: (none) Type: Progress Notes Filed: 03/17/2018 1:39 PM Note Text: Manual Readin/50 Pulse: 64 (right arm) 122/54 (left arm) Home cuff: 137/52 P: 62 (will look into new monitor) Reason for blood pressure check - Other elevated readings at home Patient is: Taking medication as prescribed Yes Took medication today Yes If no, date medication last taken N/A Experiencing side effects No BP has been elevated at home recently. Taking all medications as prescribed. Denies any chest pain, shortness of breath, dizziness, or headaches. Daily caffeine use; none today. No personal history of tobacco use; no current exposure. Alert and oriented. Pt has been identified by name and birthdate: Yes Allergies reviewed: Yes Latex allergy: no. Medication - prescribed and OTC reviewed and updated: Yes Do you need any prescription refills prior to your next visit: No Health Maintenance: Reviewed and not up to date and provider notified Patient advised to continue with current medications and would be contacted with any further instructions after review by PCP. Trixie Bentley LPN CNNURSE Observed: 03/17/2018 Status: COMPLETED Source: [place] 1:15 PM [facility] REPOSITORY Nurse Visit (JOSE APWS) DEBBIE KENNEY ([id number]) 1935 F Date Time Provider Department 03/17/18 1:15 PM [facility] During your visit today, we recorded the following information about you: Pulse Blood pressure 64/minute 118/50 Trixie Bentley LPN 03/17/2018 1:39 PM Signed Manual Readin/50 Pulse: 64 (right arm) 122/54 (left arm) Home cuff: 137/52 P: 62 (will look into new monitor) Reason for blood pressure check - Other elevated readings at home Patient is: Taking medication as prescribed Yes Took medication today Yes If no, date medication last taken N/A Experiencing side effects No BP has been elevated at home recently. Taking all medications as prescribed. Denies any chest pain, shortness of breath, dizziness, or headaches. Daily caffeine use; none today. No personal history of tobacco use; no current exposure. Alert and oriented. Pt has been identified by name and birthdate: Yes Allergies reviewed: Yes Latex allergy: no. Medication - prescribed and OTC reviewed and updated: Yes Do you need any prescription refills prior to your next visit: No Health Maintenance: Reviewed and not up to date and provider notified Patient advised to continue with current medications and would be contacted with any further instructions after review by PCP. Trixie Bentley LPN 03/17/2018 1:37 PM Addendum 118/50 (right arm) 122/54 (left arm) 137/52- home cuff reading (right arm) Referring Provider: PHILIP TODD [[id number]] Allergies As of Date: 03/17/2018 Noted Allergy Reaction DEMEROL (MEPERIDINE (PF)) 07/11/2005 1 - Mental Status Change LEVAQUIN (LEVOFLOXACIN) 08/11/2014 8 - GI Upset MORPHINE 01/28/2018 11 - Vomiting Date Reviewed: 02/26/2018 Reviewed by: Julianna Carey LPN - Fully Assessed Reason for Visit: Blood Pressure Check [195] Primary Visit Diagnosis:Essential hypertension, benign [I10] Prescriptions as of 03/17/2018 Sig: METOPROLOL SUCCINATE ER 50 MG* Take 1 tablet by mouth once d* LISINOPRIL 10 MG TABLET Take 1 tablet by mouth once d* NATEGLINIDE 60 MG TABLET Take 1 tablet by mouth three * ACETAMINOPHEN 500 MG CAPSULE Take 1,000 mg by mouth as nee* COMPOUNDED PRESCRIPTION Primal Force for joints COMPOUNDED PRESCRIPTION Artery Cleanse COMPOUNDED PRESCRIPTION Cardio Jackson Healthy heart* OMEGA 4-YZQ-LRS-OTHER OM3-D3 * Take by mouth. ASPIRIN 81 MG TABLET,DELAYED * Take 81 mg by mouth every oth* CINNAMON BARK 500 MG CAPSULE Take 1 capsule by mouth once * ASCORBIC ACID (VITAMIN C) 500* Take 1 tablet by mouth once d* CALCIUM CARBONATE 500 MG (1,2* Take one(1) tablet daily. TAGAMET 300 MG TABLET Take one(1) tablet daily. XALATAN 0.005 % EYE DROPS one drop both eyes q hs Problem List As Of Date 03/17/2018 Noted Resolved DERMATOPHYTOSIS OF NAIL [B35.1] INVALID FOR* LUMBAGO [M54.5] PERS HX COLONIC POLYPS [Z86.010] More... DIVERTICULOSIS OF COLON W/O BLEED [K57.30] More... Unspecified hemorrhoids without mention of comp* 03/14/2016 More... 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] INVALID FOR* Mixed hyperlipidemia [E78.2] INVALID FOR* Impaired fasting glucose [R73.01] INVALID FOR*11/22/2014 Onychia and paronychia of toe [L03.039] INVALID FOR*09/26/2016 Ingrowing nail [L60.0] INVALID FOR*09/26/2016 Benign paroxysmal positional vertigo [H81.10] INVALID FOR* Dizziness [R42] INVALID FOR*09/26/2016 Neuropathy [G62.9] INVALID FOR* Diabetes mellitus (HCC) [E11.9] INVALID FOR*02/08/2014 Family history of colon cancer [Z80.0] INVALID FOR* Diabetes mellitus (HCC) [E11.9] INVALID FOR* Carotid arterial disease (HCC) [I77.9] INVALID FOR* 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] INVALID FOR* Pain in right hip [M25.551] INVALID FOR* 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] INVALID FOR* Pain in right knee [M25.561] INVALID FOR* Abnormal mammogram [R92.8] INVALID FOR* Candidiasis of skin and nail [B37.2] INVALID FOR*04/17/2017 Pancreatic cyst [K86.2] INVALID FOR* CKD (chronic kidney disease) stage 1, GFR 90 ml*INVALID FOR*08/12/2017 Chronic renal insufficiency, stage 3 (moderate)*INVALID FOR* Other instructions from your clinician: 118/50 (right arm) 122/54 (left arm) 137/52- home cuff reading (right arm) Encounter Status:Closed by TRIXIE BENTLEY LPN on 03/17/18 PROGRESS Observed: 02/26/2018 Status: COMPLETED Source: [place] 1:08 PM [facility] REPOSITORY HNO ID: [id number] Author: Julianna Carey LPN Service: (none) Author Type: (none) Type: Progress Notes Filed: 02/26/2018 1:08 PM Note Text: Manual blood pressure 142/60 P 64 Reason for blood pressure check - Last BP elevated and Medication adjustment Patient is: Taking medication as prescribed Yes Took medication today Yes Experiencing side effects No Alert and oriented x 3 Is not a tobacco user Recommendations Continue taking medications as prescribed Follow-up Yes Pt has been identified by name and birthdate: Yes Allergies reviewed: Yes Latex allergy: no. Medication - prescribed and OTC reviewed and updated: Yes Do you need any prescription refills prior to your next visit: Yes Health Maintenance: Reviewed and up to date CNOV Observed: 02/26/2018 Status: COMPLETED Source: [place] 11:00 AM [facility] REPOSITORY Office Visit (FAMPWS) DEBBIE KENNEY ([id number]) 1935 F Date Time Provider Department 02/26/18 11:00 AM Rodríguez CAMPBELL [facility] During your visit today, we recorded the following information about you: Pulse Respiration Blood pressure 64/minute 20/minute 148/77 Julianna Carey LPN 02/26/2018 1:08 PM Signed Julianna Carey LPN 02/26/2018 1:08 PM Signed Manual blood pressure 142/60 P 64 Reason for blood pressure check - Last BP elevated and Medication adjustment Patient is: Taking medication as prescribed Yes Took medication today Yes Experiencing side effects No Alert and oriented x 3 Is not a tobacco user Recommendations Continue taking medications as prescribed Follow-up Yes Pt has been identified by name and birthdate: Yes Allergies reviewed: Yes Latex allergy: no. Medication - prescribed and OTC reviewed and updated: Yes Do you need any prescription refills prior to your next visit: Yes Health Maintenance: Reviewed and up to date Referring Provider: SELF [[id number]] Allergies As of Date: 02/26/2018 Noted Allergy Reaction DEMEROL (MEPERIDINE (PF)) 07/11/2005 1 - Mental Status Change LEVAQUIN (LEVOFLOXACIN) 08/11/2014 8 - GI Upset MORPHINE 01/28/2018 11 - Vomiting Date Reviewed: 02/26/2018 Reviewed by: Julianna Carey LPN - Fully Assessed Reason for Visit: Blood Pressure [15] Cmt: noticing high readings Primary Visit Diagnosis:Essential hypertension, benign [I10] Prescriptions as of 02/26/2018 Sig: METOPROLOL SUCCINATE ER 50 MG* Take 1 tablet by mouth once d* LISINOPRIL 10 MG TABLET Take 1 tablet by mouth once d* NATEGLINIDE 60 MG TABLET Take 1 tablet by mouth three * ACETAMINOPHEN 500 MG CAPSULE Take 1,000 mg by mouth as nee* COMPOUNDED PRESCRIPTION Primal Force for joints COMPOUNDED PRESCRIPTION Artery Cleanse COMPOUNDED PRESCRIPTION Cardio Jackson Healthy heart* OMEGA 9-LWE-XNR-OTHER OM3-D3 * Take by mouth. ASPIRIN 81 MG TABLET,DELAYED * Take 81 mg by mouth every oth* CINNAMON BARK 500 MG CAPSULE Take 1 capsule by mouth once * ASCORBIC ACID (VITAMIN C) 500* Take 1 tablet by mouth once d* CALCIUM CARBONATE 500 MG (1,2* Take one(1) tablet daily. TAGAMET 300 MG TABLET Take one(1) tablet daily. XALATAN 0.005 % EYE DROPS one drop both eyes q hs Problem List As Of Date 02/26/2018 Noted Resolved DERMATOPHYTOSIS OF NAIL [B35.1] INVALID FOR* LUMBAGO [M54.5] PERS HX COLONIC POLYPS [Z86.010] More... DIVERTICULOSIS OF COLON W/O BLEED [K57.30] More... Unspecified hemorrhoids without mention of comp* 03/14/2016 More... 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] INVALID FOR* Mixed hyperlipidemia [E78.2] INVALID FOR* Impaired fasting glucose [R73.01] INVALID FOR*11/22/2014 Onychia and paronychia of toe [L03.039] INVALID FOR*09/26/2016 Ingrowing nail [L60.0] INVALID FOR*09/26/2016 Benign paroxysmal positional vertigo [H81.10] INVALID FOR* Dizziness [R42] INVALID FOR*09/26/2016 Neuropathy [G62.9] INVALID FOR* Diabetes mellitus (HCC) [E11.9] INVALID FOR*02/08/2014 Family history of colon cancer [Z80.0] INVALID FOR* Diabetes mellitus (HCC) [E11.9] INVALID FOR* Carotid arterial disease (HCC) [I77.9] INVALID FOR* 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] INVALID FOR* Pain in right hip [M25.551] INVALID FOR* 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] INVALID FOR* Pain in right knee [M25.561] INVALID FOR* Abnormal mammogram [R92.8] INVALID FOR* Candidiasis of skin and nail [B37.2] INVALID FOR*04/17/2017 Pancreatic cyst [K86.2] INVALID FOR* CKD (chronic kidney disease) stage 1, GFR 90 ml*INVALID FOR*08/12/2017 Chronic renal insufficiency, stage 3 (moderate)*INVALID FOR* Visit Notes: >> Julianna Carey LPN [facility] Feb 26, 2018 11:54 AM Status: Signed Medications Discontinued During This Encounter gabapentin (NEURONTIN) 300 mg capsule 10 c* 0 09/29/2017 02/26/2018 Class: Print RX Route: ORAL Sig: Take 1 capsule by mouth daily at bedtime for 10 days. Disc: Reason for discontinue is not on file. Letter Text . [facility] AUTHORIZATION FOR THE RELEASE OF MEDICAL INFORMATION FROM OTHER HEALTHCARE FACILITIES [facility] [address] [id number] Name: Debbie Kenney Date of : 1935 [address] [phone] (home) Reason for Disclosure: Continuity of Care. Release Information From: Name of Provider/Facility: Dr Rendon Street: City: State: Zip: Fax: Phone: Release Information To: Office Receiving: Rodríguez Campbell PA-C PLEASE FAX TO: [phone] I hereby authorize to release the health information indicated below that is contained in my patient records to the Recipient named above. I understand and acknowledge that this may include treatment for physical and mental illness, alcohol/drug abuse and or HIV/AIDS test results or diagnosis. This authorization does not include permission to release outpatient Psychotherapy Notes* as defined below. The release of Psychotherapy Notes requires a separate authorization. REPORTS REQUESTED: Diabetes Reports: Last Eye Exam This consent is subject to revocation at any time except to the extent the action has been taken thereon. This authorization and consent will in one year from the date of authorization written below. Your health care (or payment for care) will not be affected by whether or not you sign this authorization. Once your health care information is released, re-disclosure of your health care information by the Recipient my no longer be protected by law. Signature of Patient/Legal Guardian Printed Name Date Signed: ____/ / Relationship if not Patient If other than patient?s signature, a copy of the legal papers verifying authority (e.g. Power of Bow Maker Custom or Certificate) MUST accompany the authorization when presented. Exception: parent if signing for patient under age 18. *Psychotherapy Notes defined as notes that document private, joint, group or family counseling sessions that are from the rest of a patient?s medical record. Encounter Status:Closed by JULIANNA CAREY LPN on 02/26/18 [facility] Observed: 02/10/2018 Status: COMPLETED Source: [place] 12:00 AM [facility] REPOSITORY Letter Text Brian Campbell PA-C [facility] Debbie Kenney [address] [facility] [id number] 02/10/2018 Dear Ms. Kenney, I have received the results of your recent tests. The results of your BMD (bone mineral density) test were either normal or within the acceptable range. We can discuss this at your next visit. Please do not hesitate to contact me with any questions. Sincerely, Brian Campbell PA-C [facility] Department electronically signed to expedite mailing CNOV Observed: 02/09/2018 Status: COMPLETED Source: [place] 2:20 PM [facility] REPOSITORY Office Visit (FAMPWS) DEBBIE KENNEY ([id number]) 1935 F Date Time Provider Department 02/09/18 2:20 PM Rodríguez CAMPBELL) [facility] During your visit today, we recorded the following information about you: Pulse Respiration Blood pressure 68/minute 16/minute 152/64 Omaira Corona Ma 02/09/2018 11:29 AM Signed Patient stopped by to verify her home blood pressure cuff. She was recently started on Metoprolol 1 week ago. 02/09/2018: Home BP Cuff Validated. Home BP: 161/76 P: 69 Office BP: 152/64 P: 68 Omaira Corona Ma Referring Provider: PHILIP TODD [[id number]] Allergies As of Date: 02/09/2018 Noted Allergy Reaction DEMEROL (MEPERIDINE (PF)) 07/11/2005 1 - Mental Status Change LEVAQUIN (LEVOFLOXACIN) 08/11/2014 8 - GI Upset MORPHINE 01/28/2018 11 - Vomiting Date Reviewed: 02/05/2018 Reviewed by: Julianna Carey LPN - Fully Assessed Reason for Visit: Blood Pressure Check [195] Primary Visit Diagnosis:Essential hypertension, benign [I10] Prescriptions as of 02/09/2018 Sig: METOPROLOL SUCCINATE ER 50 MG* Take 1 tablet by mouth once d* LISINOPRIL 10 MG TABLET Take 1 tablet by mouth once d* NATEGLINIDE 60 MG TABLET Take 1 tablet by mouth three * ACETAMINOPHEN 500 MG CAPSULE Take 1,000 mg by mouth as nee* GABAPENTIN 300 MG CAPSULE Take 1 capsule by mouth daily* COMPOUNDED PRESCRIPTION Primal Force for joints COMPOUNDED PRESCRIPTION Artery Cleanse COMPOUNDED PRESCRIPTION Cardio Jackson Healthy heart* OMEGA 0-JRB-OFX-OTHER OM3-D3 * Take by mouth. ASPIRIN 81 MG TABLET,DELAYED * Take 81 mg by mouth every oth* CINNAMON BARK 500 MG CAPSULE Take 1 capsule by mouth once * ASCORBIC ACID (VITAMIN C) 500* Take 1 tablet by mouth once d* CALCIUM CARBONATE 500 MG (1,2* Take one(1) tablet daily. TAGAMET 300 MG TABLET Take one(1) tablet daily. XALATAN 0.005 % EYE DROPS one drop both eyes q hs Problem List As Of Date 02/09/2018 Noted Resolved DERMATOPHYTOSIS OF NAIL [B35.1] INVALID FOR* LUMBAGO [M54.5] PERS HX COLONIC POLYPS [Z86.010] More... DIVERTICULOSIS OF COLON W/O BLEED [K57.30] More... Unspecified hemorrhoids without mention of comp* 03/14/2016 More... 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] INVALID FOR* Mixed hyperlipidemia [E78.2] INVALID FOR* Impaired fasting glucose [R73.01] INVALID FOR*11/22/2014 Onychia and paronychia of toe [L03.039] INVALID FOR*09/26/2016 Ingrowing nail [L60.0] INVALID FOR*09/26/2016 Benign paroxysmal positional vertigo [H81.10] INVALID FOR* Dizziness [R42] INVALID FOR*09/26/2016 Neuropathy [G62.9] INVALID FOR* Diabetes mellitus (HCC) [E11.9] INVALID FOR*02/08/2014 Family history of colon cancer [Z80.0] INVALID FOR* Diabetes mellitus (HCC) [E11.9] INVALID FOR* Carotid arterial disease (HCC) [I77.9] INVALID FOR* 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] INVALID FOR* Pain in right hip [M25.551] INVALID FOR* 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] INVALID FOR* Pain in right knee [M25.561] INVALID FOR* Abnormal mammogram [R92.8] INVALID FOR* Candidiasis of skin and nail [B37.2] INVALID FOR*04/17/2017 Pancreatic cyst [K86.2] INVALID FOR* CKD (chronic kidney disease) stage 1, GFR 90 ml*INVALID FOR*08/12/2017 Chronic renal insufficiency, stage 3 (moderate)*INVALID FOR* Encounter Status:Closed by OMAIRA CORONA MA on 02/09/18 PROGRESS Observed: 02/09/2018 Status: COMPLETED Source: [place] 11:19 AM [facility] REPOSITORY HNO ID: [id number] Author: Omaira Corona Ma Service: (none) Author Type: (none) Type: Progress Notes Filed: 02/09/2018 11:29 AM Note Text: Patient stopped by to verify her home blood pressure cuff. She was recently started on Metoprolol 1 week ago. 02/09/2018: Home BP Cuff Validated. Home BP: 161/76 P: 69 Office BP: 152/64 P: 68 Omaira Corona Ma BD DXA - AXIAL Observed: 02/09/2018 Status: F Source: [facility] 10:29 AM [facility] REPOSITORY * * *Final Report* * * DATE OF EXAM: Feb 09 2018 10:29AM WRB 0804 - BD DXA - AXIAL SKELETON / PROCEDURE REASON: multiple diagnoses * * * * Physician Interpretation * * * * PROCEDURE: BD DXA - AXIAL SKELETON INDICATION: Disorder of bone, unspecified Disorder of cartilage, unspecified Stress fracture, right tibia, sequela TECHNIQUE: Low dose AP spine and hip images COMPARISON: 11/15/2011 LUMBAR SPINE: The bone mineral density from L1 through L4 is 1.222 grams per square centimeter which yields a T-score of 1.6. . LEFT HIP: The bone mineral density of the total region of the hip is 1.150 grams per square centimeter which yields a T-score of 1.7. . LEFT FEMORAL NECK: The bone mineral density of the femoral neck is 0.797 grams per square centimeter which yields a T-score of -0.5. . RIGHT HIP: The bone mineral density of the total region of the hip is 1.083 grams per square centimeter which yields a T-score of 1.2. . RIGHT FEMORAL NECK: The bone mineral density of the femoral neck is 0.795 grams per square centimeter which yields a T-score of -0.5. . 10-year Fracture Risk (FRAX): Major osteoporotic fracture risk 13% Hip fracture risk 1.8% IMPRESSION: Normal. Accurate comparison to the prior study cannot be made due to dissimilar scan types or analysis methods. [facility] ORG. CLASSIFICATION OF BONE MASS CLASSIFICATION T-SCORE Normal Greater than -1 Low Bone Mass Between -1 and -2.5 (Osteopenia) Osteoporosis Less than or equal to -2.5 Legal Support Specialist: OSCAR Transcribe Date/Time: Feb 09 2018 1:13P Dictated by : QUYEN YANEZ MD This examination was interpreted and the report reviewed and electronically signed by: QUYEN YANEZ MD on Feb 09 2018 1:15PM EST [id number] PROGRESS Observed: 02/09/2018 Status: COMPLETED Source: [place] 10:07 AM [facility] REPOSITORY [facility] ID: [id number] Author: Delores Moreno Service: (none) Author Type: (none) Type: Progress Notes Filed: 02/09/2018 10:29 AM Note Text: Debbie Kenney February 09, 2018 [id number] Double identification: Patient identified by name and Bone Density Completed. Delores Bentley Rt patient told of radiation jk 10:30am not PROGRESS Observed: 02/05/2018 Status: COMPLETED Source: [place] 11:18 AM [facility] REPOSITORY HNO ID: [id number] Author: Rodríguez Berman (RoccoC) Adrian Service: (none) Author Type: Physician Director Of Critical Care Type: Progress Notes Filed: 02/05/2018 7:10 PM Note Text: 82 year old female with c/o elevated blood pressure in afternoon 170 systolic. About midnight rechecked and was 244/ 70s. Took Amlodipine 5mg tab and took another this morning. Anxious about blood pressure. Leg swelling has significantly improved off the medication. Still has a little bit of swelling around her left ankle that she finds concerning but overall her legs are feeling better. She continues to have foot pain about the same. 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 - Benign neoplasm of colon - Diverticulosis of colon (without mention of hemorrhage) Diverticulosis - Glaucoma - HTN (hypertension) - Hyperlipidemia - Left carotid stenosis checking yearly - Lumbago - Macular pucker of both eyes stable - Other specified glaucoma - Posterior capsule opacification OD - Pseudophakia of both eyes stable - Ptosis of eyelid OU-stable - Snoring - Type II or unspecified type diabetes mellitus without mention of complication, not stated as uncontrolled PAST SURGICAL HISTORY Procedure Laterality Date - CATARACT EXTRACTION HX Bilateral 12 - COLONOSCOP W/ OR W/O [facility] SPEC 03/26/02 Colonoscopy - COLONOSCOP W/ OR W/O [facility] SPEC 05/18/2008 Colonoscopy - COLONOSCOP W/ OR W/O [facility] SPEC 01/13/14 Colonoscopy - REMOVAL GALLBLADDER 97 Cholecystectomy - REPAIR ING HERNIA,5+Y/O,REDUCIBL Hernia repair, inguinal - VAGINAL HYSTERECTOMY 77 Hysterectomy, vaginal Social History Marital status: Spouse name: Years of education: Number of children: Social History Main Topics Smoking status: Never Smoker Smokeless tobacco: Never Used Alcohol use: No Drug use: No ACTIVE PROBLEM LIST Dermatophytosis of Nail Lumbago Personal History of Colonic Polyps Diverticulosis of Colon (Without Mention of Hemorrhage) Essential Hypertension, Benign Unspecified Cerebral Artery Occlusion With Cerebral Infarction Mixed Hyperlipidemia Benign Paroxysmal Positional Vertigo Neuropathy (Hcc) Family History of Colon Cancer Diabetes Mellitus (Hcc) Carotid Arterial Disease (Hcc) Primary Osteoarthritis of Right Hip Pain in Right Hip Arthropathy of Sacroiliac Joint (Hcc) Pain in Right Knee Abnormal Mammogram Pancreatic Cyst Chronic Renal Insufficiency, Stage 3 (Moderate) (Hcc) Current Outpatient Prescriptions: lisinopril (ZESTRIL, PRINIVIL) 10 mg tablet Take 1 tablet by mouth once daily. Disp: 90 tablet Rfl: 1 nateglinide (STARLIX) 60 mg tablet Take 1 tablet by mouth three times daily before meals. Disp: 270 tablet Rfl: 3 Acetaminophen 500 mg cap Take 1,000 mg by mouth as needed. Disp: Rfl: COMPOUNDED PRESCRIPTION Primal Force for joints Disp: Rfl: COMPOUNDED PRESCRIPTION Artery Cleanse Disp: Rfl: COMPOUNDED PRESCRIPTION Cardio Jackson Healthy heart/arteries Disp: Rfl: OMEGA 1-NYD-BUC-OTHER OM3-D3 ORAL Take by mouth. Disp: Rfl: aspirin, enteric coated (ASPIRIN, ENTERIC COATED) 81 mg EC tablet Take 81 mg by mouth every other day. Disp: Rfl: Cinnamon Bark (CINNAMON) 500 mg ORAL Cap Take 1 capsule by mouth once daily. Disp: Rfl: 0 ascorbic acid (VITAMIN C) 500 mg ORAL tablet Take 1 tablet by mouth once daily. Disp: Rfl: 0 calcium-vitamin D 500 mg(1,250mg) -200 unit ORAL per tablet Take one(1) tablet daily. Disp: Rfl: 0 cimetidine(TAGAMET 300 MG TAB) Take one(1) tablet daily. Disp: Rfl: 0 XALATAN 0.005 % EYE DROPS one drop both eyes q hs Disp: 1 Rfl: 0 gabapentin (NEURONTIN) 300 mg capsule Take 1 capsule by mouth daily at bedtime for 10 days. Disp: 10 capsule Rfl: 0 No current facility-administered medications for this visit. DTAP,TDAP,TD(2 - Tdap) due on 11/18/2001 EXAM: BP 160/64 Pulse 80 Temp 36.4 ?C (97.6 ?F) (Tympanic) Resp 20 Wt 106.6 kg (235 lb) BMI 41.63 kg/m? Pleasant Overweight elderly female in no acute distress. Alert and oriented all spheres. Normal affect and cognition. Speech normal. No deficits to learning or comprehension. Skin warm, dry, pink to lips and nailbeds. Normal turgor. Respirations regular and unlabored. Chest CTA. HRRR with systolic murmur unchanged Lower leg edema has improved. She still has dry slightly leathery skin. Mild swelling in the left ankle. Foot actually has gone down significantly on that side. She continues to be tender in the right foot. No change in appearance otherwise. Dorsal pedal pulses are 2 out of 4+. Toes are warm and pink with prompt capillary refill. ASSESSMENT/PLAN: 1. Essential hypertension, benign - ICD9: 401.1, ICD10: I10 - poor control, unclear how much of factor anxiety was in her current blood pressures. - Start metoprolol 50 mg XL daily. Follow-up in 2 weeks for recheck on blood pressure. Patient is worried about waiting that long and will be in the clinic in 5 days for imaging and can come in for blood pressure check at that time. Notified patient if blood pressure is exceeds 200/100 patient should report to the emergency room for exam. She expressed understanding and teach back. YAW JosephOV Observed: 02/05/2018 Status: COMPLETED Source: [place] 10:00 AM [facility] REPOSITORY Office Visit (FAMPWS) DEBBIE KENNEY ([id number]) 1935 F Date Time Provider Department 02/05/18 10:00 AM Rodríguez CAMPBELL) FAMPWS During your visit today, we recorded the following information about you: Temperature Pulse Respiration Blood pressure 97.6 degrees 80/minute 20/minute 160/64 Weight 106.6 kg Rodríguez Campbell PA-C 02/05/2018 7:10 PM Signed 82 year old female with c/o elevated blood pressure in afternoon 170 systolic. About midnight rechecked and was 244/ 70s. Took Amlodipine 5mg tab and took another this morning. Anxious about blood pressure. Leg swelling has significantly improved off the medication. Still has a little bit of swelling around her left ankle that she finds concerning but overall her legs are feeling better. She continues to have foot pain about the same. 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 - Benign neoplasm of colon - Diverticulosis of colon (without mention of hemorrhage) Diverticulosis - Glaucoma - HTN (hypertension) - Hyperlipidemia - Left carotid stenosis checking yearly - Lumbago - Macular pucker of both eyes stable - Other specified glaucoma - Posterior capsule opacification OD - Pseudophakia of both eyes stable - Ptosis of eyelid OU-stable - Snoring - Type II or unspecified type diabetes mellitus without mention of complication, not stated as uncontrolled PAST SURGICAL HISTORY Procedure Laterality Date - CATARACT EXTRACTION HX Bilateral 12 - COLONOSCOP W/ OR W/O [facility] SPEC 03/26/02 Colonoscopy - COLONOSCOP W/ OR W/O [facility] SPEC 05/18/2008 Colonoscopy - COLONOSCOP W/ OR W/O [facility] SPEC 01/13/14 Colonoscopy - REMOVAL GALLBLADDER 97 Cholecystectomy - REPAIR ING HERNIA,5+Y/O,REDUCIBL Hernia repair, inguinal - VAGINAL HYSTERECTOMY 77 Hysterectomy, vaginal Social History Marital status: Spouse name: Years of education: Number of children: Social History Main Topics Smoking status: Never Smoker Smokeless tobacco: Never Used Alcohol use: No Drug use: No ACTIVE PROBLEM LIST Dermatophytosis of Nail Lumbago Personal History of Colonic Polyps Diverticulosis of Colon (Without Mention of Hemorrhage) Essential Hypertension, Benign Unspecified Cerebral Artery Occlusion With Cerebral Infarction Mixed Hyperlipidemia Benign Paroxysmal Positional Vertigo Neuropathy (Hcc) Family History of Colon Cancer Diabetes Mellitus (Hcc) Carotid Arterial Disease (Hcc) Primary Osteoarthritis of Right Hip Pain in Right Hip Arthropathy of Sacroiliac Joint (Hcc) Pain in Right Knee Abnormal Mammogram Pancreatic Cyst Chronic Renal Insufficiency, Stage 3 (Moderate) (Hcc) Current Outpatient Prescriptions: lisinopril (ZESTRIL, PRINIVIL) 10 mg tablet Take 1 tablet by mouth once daily. Disp: 90 tablet Rfl: 1 nateglinide (STARLIX) 60 mg tablet Take 1 tablet by mouth three times daily before meals. Disp: 270 tablet Rfl: 3 Acetaminophen 500 mg cap Take 1,000 mg by mouth as needed. Disp: Rfl: COMPOUNDED PRESCRIPTION Primal Force for joints Disp: Rfl: COMPOUNDED PRESCRIPTION Artery Cleanse Disp: Rfl: COMPOUNDED PRESCRIPTION Cardio Jackson Healthy heart/arteries Disp: Rfl: OMEGA 9-LVZ-FGS-OTHER OM3-D3 ORAL Take by mouth. Disp: Rfl: aspirin, enteric coated (ASPIRIN, ENTERIC COATED) 81 mg EC tablet Take 81 mg by mouth every other day. Disp: Rfl: Cinnamon Bark (CINNAMON) 500 mg ORAL Cap Take 1 capsule by mouth once daily. Disp: Rfl: 0 ascorbic acid (VITAMIN C) 500 mg ORAL tablet Take 1 tablet by mouth once daily. Disp: Rfl: 0 calcium-vitamin D 500 mg(1,250mg) -200 unit ORAL per tablet Take one(1) tablet daily. Disp: Rfl: 0 cimetidine(TAGAMET 300 MG TAB) Take one(1) tablet daily. Disp: Rfl: 0 XALATAN 0.005 % EYE DROPS one drop both eyes q hs Disp: 1 Rfl: 0 gabapentin (NEURONTIN) 300 mg capsule Take 1 capsule by mouth daily at bedtime for 10 days. Disp: 10 capsule Rfl: 0 No current facility-administered medications for this visit. DTAP,TDAP,TD(2 - Tdap) due on 11/18/2001 EXAM: BP 160/64 Pulse 80 Temp 36.4 ?C (97.6 ?F) (Tympanic) Resp 20 Wt 106.6 kg (235 lb) BMI 41.63 kg/m? Pleasant Overweight elderly female in no acute distress. Alert and oriented all spheres. Normal affect and cognition. Speech normal. No deficits to learning or comprehension. Skin warm, dry, pink to lips and nailbeds. Normal turgor. Respirations regular and unlabored. Chest CTA. HRRR with systolic murmur unchanged Lower leg edema has improved. She still has dry slightly leathery skin. Mild swelling in the left ankle. Foot actually has gone down significantly on that side. She continues to be tender in the right foot. No change in appearance otherwise. Dorsal pedal pulses are 2 out of 4+. Toes are warm and pink with prompt capillary refill. ASSESSMENT/PLAN: 1. Essential hypertension, benign - ICD9: 401.1, ICD10: I10 - poor control, unclear how much of factor anxiety was in her current blood pressures. - Start metoprolol 50 mg XL daily. Follow-up in 2 weeks for recheck on blood pressure. Patient is worried about waiting that long and will be in the clinic in 5 days for imaging and can come in for blood pressure check at that time. Notified patient if blood pressure is exceeds 200/100 patient should report to the emergency room for exam. She expressed understanding and teach back. M Cullen Campbell PA-C Referring Provider: SELF [[id number]] Allergies As of Date: 02/05/2018 Noted Allergy Reaction DEMEROL (MEPERIDINE (PF)) 07/11/2005 1 - Mental Status Change LEVAQUIN (LEVOFLOXACIN) 08/11/2014 8 - GI Upset MORPHINE 01/28/2018 11 - Vomiting Date Reviewed: 02/05/2018 Reviewed by: Julianna Carey LPN - Fully Assessed Reason for Visit: Blood Pressure [15] Cmt: been running high started yesterday evening took a dose on amlodipine last night and a dose this am. Reason For Visit History Recorded Primary Visit Diagnosis:Essential hypertension, benign [I10] Order(s):metoprolol succinate ER (TOPROL XL) 50 mg 24 hr tabletTake 1 tablet by mouth once daily.Disp: 30 tabletRfl: 1 Prescriptions as of 02/05/2018 Sig: LISINOPRIL 10 MG TABLET Take 1 tablet by mouth once d* NATEGLINIDE 60 MG TABLET Take 1 tablet by mouth three * ACETAMINOPHEN 500 MG CAPSULE Take 1,000 mg by mouth as nee* COMPOUNDED PRESCRIPTION Primal Force for joints COMPOUNDED PRESCRIPTION Artery Cleanse COMPOUNDED PRESCRIPTION Cardio Jackson Healthy heart* OMEGA 0-CMU-EDF-OTHER OM3-D3 * Take by mouth. ASPIRIN 81 MG TABLET,DELAYED * Take 81 mg by mouth every oth* CINNAMON BARK 500 MG CAPSULE Take 1 capsule by mouth once * ASCORBIC ACID (VITAMIN C) 500* Take 1 tablet by mouth once d* CALCIUM CARBONATE 500 MG (1,2* Take one(1) tablet daily. TAGAMET 300 MG TABLET Take one(1) tablet daily. XALATAN 0.005 % EYE DROPS one drop both eyes q hs METOPROLOL SUCCINATE ER 50 MG* Take 1 tablet by mouth once d* GABAPENTIN 300 MG CAPSULE Take 1 capsule by mouth daily* Problem List As Of Date 02/05/2018 Noted Resolved DERMATOPHYTOSIS OF NAIL [B35.1] INVALID FOR* LUMBAGO [M54.5] PERS HX COLONIC POLYPS [Z86.010] More... DIVERTICULOSIS OF COLON W/O BLEED [K57.30] More... Unspecified hemorrhoids without mention of comp* 03/14/2016 More... 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] INVALID FOR* Mixed hyperlipidemia [E78.2] INVALID FOR* Impaired fasting glucose [R73.01] INVALID FOR*11/22/2014 Onychia and paronychia of toe [L03.039] INVALID FOR*09/26/2016 Ingrowing nail [L60.0] INVALID FOR*09/26/2016 Benign paroxysmal positional vertigo [H81.10] INVALID FOR* Dizziness [R42] INVALID FOR*09/26/2016 Neuropathy [G62.9] INVALID FOR* Diabetes mellitus (HCC) [E11.9] INVALID FOR*02/08/2014 Family history of colon cancer [Z80.0] INVALID FOR* Diabetes mellitus (HCC) [E11.9] INVALID FOR* Carotid arterial disease (HCC) [I77.9] INVALID FOR* 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] INVALID FOR* Pain in right hip [M25.551] INVALID FOR* 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] INVALID FOR* Pain in right knee [M25.561] INVALID FOR* Abnormal mammogram [R92.8] INVALID FOR* Candidiasis of skin and nail [B37.2] INVALID FOR*04/17/2017 Pancreatic cyst [K86.2] INVALID FOR* CKD (chronic kidney disease) stage 1, GFR 90 ml*INVALID FOR*08/12/2017 Chronic renal insufficiency, stage 3 (moderate)*INVALID FOR* Prescriptions ordered this encounter Disp Refills Start End METOPROLOL SUCCINATE ER 50 MG TABLET* 30 t* 1 02/05/2018 Route: ORAL Sig: Take 1 tablet by mouth once daily. Disposition: Return in about 2 weeks (around 02/19/2018). Follow-up and Disposition History Recorded Encounter Status:Closed by Rodríguez CAMPBELL PA-C on 7/19/18 PROGRESS Observed: 01/28/2018 Status: COMPLETED Source: [place] 10:09 AM [facility] REPOSITORY HNO ID: [id number] Author: Rodríguez Berman (RoccoC) Adrian Service: (none) Author Type: Physician Director Of Critical Care Type: Progress Notes Filed: 01/28/2018 6:54 PM Note Text: 82 year old female with c/o right foot painful on walking. Initially saw Dr. Nunez: gave cortisone injection which didn't help. Dissatisfied, went to Dr. Alcala who did MRI which showed meniscal tear and stress fracture. Had arthroscopic surgery per Dr. Quesada, Dr. Campbell. Chronic pain since in dorsal foot: Dr. Campbell thought possible stress fracture. Both legs swollen after surgery. Right foot pain started with walking after surgery. Couldn't put weight on foot for 6 weeks, then only 50% weight bearing. Was directed to Dr. Moise photoengraving apprentice in [place] by Dr Campbell. Told her to get rid of swelling in legs, get good shoes. Had xray yesterday but hasn't heard results yet. Needs refill on lisinopril and Starlix. Blood pressures been well controlled. Patient is compliant with medications. Denies dizziness, headache, chest pain. She has noted swelling as above. Tolerating Starlix without complication. Diabetes controlled. Doesn't check blood sugars at home. Frustrated with her inactivity. She has been working up until this point. Generally tries to follow diet. She denies any new numbness or tingling, unusual pattern for urination, blurred vision. Hemoglobin A1C (%) Date Value 10/09/2017 7.0 04/11/2017 6.4 ) Component Latest Ref Rng AND Units 04/11/2017 Triglyceride 30 - 149 mg/dL 142 Cholesterol, Total 100 - 199 mg/dL 131 HDL Cholesterol >55 mg/dL 40 (L) VLDL Cholesterol 6 - 40 mg/dL 28 LDL Cholesterol 60 - 129 mg/dL 63 Fasting Time hrs 14 TC:HDL Ratio 1.00 - 5.00 3.28 LDL:HDL Ratio 0.50 - 3.55 1.58 Non HDL Cholesterol 90 - 159 mg/dL 91 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 - Benign neoplasm of colon - Diverticulosis of colon (without mention of hemorrhage) Diverticulosis - Glaucoma - HTN (hypertension) - Hyperlipidemia - Left carotid stenosis checking yearly - Lumbago - Macular pucker of both eyes stable - Other specified glaucoma - Posterior capsule opacification OD - Pseudophakia of both eyes stable - Ptosis of eyelid OU-stable - Snoring - Type II or unspecified type diabetes mellitus without mention of complication, not stated as uncontrolled PAST SURGICAL HISTORY Procedure Laterality Date - CATARACT EXTRACTION HX Bilateral 12 - COLONOSCOP W/ OR W/O [facility] SPEC 03/26/02 Colonoscopy - COLONOSCOP W/ OR W/O [facility] SPEC 05/18/2008 Colonoscopy - COLONOSCOP W/ OR W/O [facility] SPEC 01/13/14 Colonoscopy - REMOVAL GALLBLADDER 97 Cholecystectomy - REPAIR ING HERNIA,5+Y/O,REDUCIBL Hernia repair, inguinal - VAGINAL HYSTERECTOMY 77 Hysterectomy, vaginal Social History Marital status: Spouse name: Years of education: Number of children: Social History Main Topics Smoking status: Never Smoker Smokeless tobacco: Never Used Alcohol use: No Drug use: No ACTIVE PROBLEM LIST Dermatophytosis of Nail Lumbago Personal History of Colonic Polyps Diverticulosis of Colon (Without Mention of Hemorrhage) Essential Hypertension, Benign Unspecified Cerebral Artery Occlusion With Cerebral Infarction Mixed Hyperlipidemia Benign Paroxysmal Positional Vertigo Neuropathy (Hcc) Family History of Colon Cancer Diabetes Mellitus (Hcc) Carotid Arterial Disease (Hcc) Primary Osteoarthritis of Right Hip Pain in Right Hip Arthropathy of Sacroiliac Joint (Hcc) Pain in Right Knee Abnormal Mammogram Pancreatic Cyst Chronic Renal Insufficiency, Stage 3 (Moderate) (Hcc) Current Outpatient Prescriptions: COMPOUNDED PRESCRIPTION Primal Force for joints Disp: Rfl: COMPOUNDED PRESCRIPTION Artery Cleanse Disp: Rfl: COMPOUNDED PRESCRIPTION Cardio Jackson Healthy heart/arteries Disp: Rfl: lisinopril (ZESTRIL, PRINIVIL) 10 mg tablet Take 1 tablet by mouth once daily. Disp: 90 tablet Rfl: 1 amLODIPine (NORVASC) 5 mg tablet Take 1 tablet by mouth once daily. Disp: 90 tablet Rfl: 1 OMEGA 3-UJH-DJP-OTHER OM3-D3 ORAL Take by mouth. Disp: Rfl: aspirin, enteric coated (ASPIRIN, ENTERIC COATED) 81 mg EC tablet Take 81 mg by mouth every other day. Disp: Rfl: nateglinide (STARLIX) 60 mg tablet Take 1 tablet by mouth three times daily before meals. Disp: 270 tablet Rfl: 3 Cinnamon Bark (CINNAMON) 500 mg ORAL Cap Take 1 capsule by mouth once daily. Disp: Rfl: 0 ascorbic acid (VITAMIN C) 500 mg ORAL tablet Take 1 tablet by mouth once daily. Disp: Rfl: 0 calcium-vitamin D 500 mg(1,250mg) -200 unit ORAL per tablet Take one(1) tablet daily. Disp: Rfl: 0 cimetidine(TAGAMET 300 MG TAB) Take one(1) tablet daily. Disp: Rfl: 0 XALATAN 0.005 % EYE DROPS one drop both eyes q hs Disp: 1 Rfl: 0 Acetaminophen 500 mg cap Take 1,000 mg by mouth twice daily. Disp: Rfl: gabapentin (NEURONTIN) 300 mg capsule Take 1 capsule by mouth daily at bedtime for 10 days. Disp: 10 capsule Rfl: 0 No current facility-administered medications for this visit. ZOSTER VACCINE (SHINGRIX)(1 of 2) due on 1986 DTAP,TDAP,TD(2 - Tdap) due on 11/18/2001 DILATED RETINAL EXAM due on 09/03/2017 DIABETIC FOOT EXAM due on 01/17/2018 EXAM: BP 130/58 Pulse 88 Resp 16 Wt 105.2 kg (232 lb) BMI 41.10 kg/m? Pleasant obese elderly woman in no acute distress. Alert and oriented all spheres. Normal affect and cognition. Speech normal. No deficits to learning or comprehension. Skin warm, dry, pink to lips and nailbeds. Normal turgor. Respirations regular and unlabored. Chest CTA. HRRR without murmur or gallop. Extrem: no clubbing or cyanosis. Bilateral 1/4+ pitting edema. Very tender distal forefoot base of great and second toe. Extremities are warm and pink with prompt capillary refill. Feet:Shoes and socks removed, normal distal pulses, sensitive to 10 gm monofilament, vibratory perception normal and dry skin, mild calluses on great toes medially bilaterally with bunions, thick pads on soles. ASSESSMENT/PLAN: 1. Disorder of bone and cartilage - ICD9: 733.90, ICD10: M89.9, M94.9 (primary diagnosis) - Reviewed the need for Calcium and Vitamin D supplements and weight bearing exercise as tolerated - DXA-AXIAL SKELETON 2. Essential hypertension, benign - ICD9: 401.1, ICD10: I10 - good control - Recommended regular aerobic exercise. - Recommend home blood pressure monitoring, to bring results in on next visit - Goal of BP <130/80 - LISINOPRIL 10 MG TABLET 3. Foot pain, right - ICD9: 729.5, ICD10: M79.671 Follow with podiatry. Had x-ray done per podiatry yesterday but does not have results yet. Advised she may need bone scan or MRI to assess if stress fractures present. 4. Bilateral leg edema - ICD9: 782.3, ICD10: R60.0 Suspect related to combination of amlodipine and venous stasis. Patient is motivated to have reduction in edema due to foot pain. We will stop amlodipine. Patient does not want to start a second medication. We will recheck blood pressure and swelling in 2 weeks. 5. Stress fracture of right tibia, sequela - ICD9: MAH0323, ICD10: M84.361S - DXA-AXIAL SKELETON 6. Mixed hyperlipidemia - ICD9: 272.2, ICD10: E78.2 - good control - Continue current medication. - NATEGLINIDE 60 MG TABLET 7. 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thy, unspecified whether predatory animal exterminator insulin use (HCC) - ICD9: 250.40, 583.81, ICD10: E11.21 Controlled. - Continue current medications - Check HgA1C F/u 3 months or as needed This has been fully explained to the patient, who indicates understanding. YAW Joseph PA-C CNOV Observed: 01/28/2018 Status: COMPLETED Source: [place] 9:20 AM [facility] REPOSITORY [facility] DEBBIE KENNEY ([id number]) 1935 F Date Time Provider Department 01/28/18 9:20 AM Rodríguez CAMPBELL) CROW During your visit today, we recorded the following information about you: Pulse Respiration Blood pressure Weight 88/minute 16/minute 130/58 105.2 kg M Cullen Campbell PA-C 01/28/2018 6:54 PM Signed 82 year old female with c/o right foot painful on walking. Initially saw Dr. Nunez: gave cortisone injection which didn't help. Dissatisfied, went to Dr. Alcala who did MRI which showed meniscal tear and stress fracture. Had arthroscopic surgery per Dr. Quesada, Dr. Campbell. Chronic pain since in dorsal foot: Dr. Campbell thought possible stress fracture. Both legs swollen after surgery. Right foot pain started with walking after surgery. Couldn't put weight on foot for 6 weeks, then only 50% weight bearing. Was directed to Dr. Moise photoengraving apprentice in [place] by Dr Campbell. Told her to get rid of swelling in legs, get good shoes. Had xray yesterday but hasn't heard results yet. Needs refill on lisinopril and Starlix. Blood pressures been well controlled. Patient is compliant with medications. Denies dizziness, headache, chest pain. She has noted swelling as above. Tolerating Starlix without complication. Diabetes controlled. Doesn't check blood sugars at home. Frustrated with her inactivity. She has been working up until this point. Generally tries to follow diet. She denies any new numbness or tingling, unusual pattern for urination, blurred vision. Hemoglobin A1C (%) Date Value 10/09/2017 7.0 04/11/2017 6.4 ) Component Latest Ref Rng AND Units 04/11/2017 Triglyceride 30 - 149 mg/dL 142 Cholesterol, Total 100 - 199 mg/dL 131 HDL Cholesterol >55 mg/dL 40 (L) VLDL Cholesterol 6 - 40 mg/dL 28 LDL Cholesterol 60 - 129 mg/dL 63 Fasting Time hrs 14 TC:HDL Ratio 1.00 - 5.00 3.28 LDL:HDL Ratio 0.50 - 3.55 1.58 Non HDL Cholesterol 90 - 159 mg/dL 91 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 - Benign neoplasm of colon - Diverticulosis of colon (without mention of hemorrhage) Diverticulosis - Glaucoma - HTN (hypertension) - Hyperlipidemia - Left carotid stenosis checking yearly - Lumbago - Macular pucker of both eyes stable - Other specified glaucoma - Posterior capsule opacification OD - Pseudophakia of both eyes stable - Ptosis of eyelid OU-stable - Snoring - Type II or unspecified type diabetes mellitus without mention of complication, not stated as uncontrolled PAST SURGICAL HISTORY Procedure Laterality Date - CATARACT EXTRACTION HX Bilateral 12 - COLONOSCOP W/ OR W/O [facility] SPEC 03/26/02 Colonoscopy - COLONOSCOP W/ OR W/O [facility] SPEC 05/18/2008 Colonoscopy - COLONOSCOP W/ OR W/O [facility] SPEC 01/13/14 Colonoscopy - REMOVAL GALLBLADDER 97 Cholecystectomy - REPAIR ING HERNIA,5+Y/O,REDUCIBL Hernia repair, inguinal - VAGINAL HYSTERECTOMY 77 Hysterectomy, vaginal Social History Marital status: Spouse name: Years of education: Number of children: Social History Main Topics Smoking status: Never Smoker Smokeless tobacco: Never Used Alcohol use: No Drug use: No ACTIVE PROBLEM LIST Dermatophytosis of Nail Lumbago Personal History of Colonic Polyps Diverticulosis of Colon (Without Mention of Hemorrhage) Essential Hypertension, Benign Unspecified Cerebral Artery Occlusion With Cerebral Infarction Mixed Hyperlipidemia Benign Paroxysmal Positional Vertigo Neuropathy (Hcc) Family History of Colon Cancer Diabetes Mellitus (Hcc) Carotid Arterial Disease (Hcc) Primary Osteoarthritis of Right Hip Pain in Right Hip Arthropathy of Sacroiliac Joint (Hcc) Pain in Right Knee Abnormal Mammogram Pancreatic Cyst Chronic Renal Insufficiency, Stage 3 (Moderate) (Hcc) Current Outpatient Prescriptions: COMPOUNDED PRESCRIPTION Primal Force for joints Disp: Rfl: COMPOUNDED PRESCRIPTION Artery Cleanse Disp: Rfl: COMPOUNDED PRESCRIPTION Cardio Jackson Healthy heart/arteries Disp: Rfl: lisinopril (ZESTRIL, PRINIVIL) 10 mg tablet Take 1 tablet by mouth once daily. Disp: 90 tablet Rfl: 1 amLODIPine (NORVASC) 5 mg tablet Take 1 tablet by mouth once daily. Disp: 90 tablet Rfl: 1 OMEGA 5-NVB-WMQ-OTHER OM3-D3 ORAL Take by mouth. Disp: Rfl: aspirin, enteric coated (ASPIRIN, ENTERIC COATED) 81 mg EC tablet Take 81 mg by mouth every other day. Disp: Rfl: nateglinide (STARLIX) 60 mg tablet Take 1 tablet by mouth three times daily before meals. Disp: 270 tablet Rfl: 3 Cinnamon Bark (CINNAMON) 500 mg ORAL Cap Take 1 capsule by mouth once daily. Disp: Rfl: 0 ascorbic acid (VITAMIN C) 500 mg ORAL tablet Take 1 tablet by mouth once daily. Disp: Rfl: 0 calcium-vitamin D 500 mg(1,250mg) -200 unit ORAL per tablet Take one(1) tablet daily. Disp: Rfl: 0 cimetidine(TAGAMET 300 MG TAB) Take one(1) tablet daily. Disp: Rfl: 0 XALATAN 0.005 % EYE DROPS one drop both eyes q hs Disp: 1 Rfl: 0 Acetaminophen 500 mg cap Take 1,000 mg by mouth twice daily. Disp: Rfl: gabapentin (NEURONTIN) 300 mg capsule Take 1 capsule by mouth daily at bedtime for 10 days. Disp: 10 capsule Rfl: 0 No current facility-administered medications for this visit. ZOSTER VACCINE (SHINGRIX)(1 of 2) due on 1986 DTAP,TDAP,TD(2 - Tdap) due on 11/18/2001 DILATED RETINAL EXAM due on 09/03/2017 DIABETIC FOOT EXAM due on 01/17/2018 EXAM: BP 130/58 Pulse 88 Resp 16 Wt 105.2 kg (232 lb) BMI 41.10 kg/m? Pleasant obese elderly woman in no acute distress. Alert and oriented all spheres. Normal affect and cognition. Speech normal. No deficits to learning or comprehension. Skin warm, dry, pink to lips and nailbeds. Normal turgor. Respirations regular and unlabored. Chest CTA. HRRR without murmur or gallop. Extrem: no clubbing or cyanosis. Bilateral 1/4+ pitting edema. Very tender distal forefoot base of great and second toe. Extremities are warm and pink with prompt capillary refill. Feet:Shoes and socks removed, normal distal pulses, sensitive to 10 gm monofilament, vibratory perception normal and dry skin, mild calluses on great toes medially bilaterally with bunions, thick pads on soles. ASSESSMENT/PLAN: 1. Disorder of bone and cartilage - ICD9: 733.90, ICD10: M89.9, M94.9 (primary diagnosis) - Reviewed the need for Calcium and Vitamin D supplements and weight bearing exercise as tolerated - DXA-AXIAL SKELETON 2. Essential hypertension, benign - ICD9: 401.1, ICD10: I10 - good control - Recommended regular aerobic exercise. - Recommend home blood pressure monitoring, to bring results in on next visit - Goal of BP <130/80 - LISINOPRIL 10 MG TABLET 3. Foot pain, right - ICD9: 729.5, ICD10: M79.671 Follow with podiatry. Had x-ray done per podiatry yesterday but does not have results yet. Advised she may need bone scan or MRI to assess if stress fractures present. 4. Bilateral leg edema - ICD9: 782.3, ICD10: R60.0 Suspect related to combination of amlodipine and venous stasis. Patient is motivated to have reduction in edema due to foot pain. We will stop amlodipine. Patient does not want to start a second medication. We will recheck blood pressure and swelling in 2 weeks. 5. Stress fracture of right tibia, sequela - ICD9: [id number], ICD10: M84.361S - DXA-AXIAL SKELETON 6. Mixed hyperlipidemia - ICD9: 272.2, ICD10: E78.2 - good control - Continue current medication. - NATEGLINIDE 60 MG TABLET 7. 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thy, unspecified whether predatory animal exterminator insulin use (HCC) - ICD9: 250.40, 583.81, ICD10: E11.21 Controlled. - Continue current medications - Check HgA1C F/u 3 months or as needed This has been fully explained to the patient, who indicates understanding. YAW Joseph PA-C M Gregory Barton, PA-C 01/28/2018 10:36 AM Signed BONE MINERAL DENSITY PATIENT INSTRUCTIONS Bone mineral density testing measures the amount of calcium in certain parts of your bones. This information determines how strong your bones are. The test is used to detect osteoporosis, a disease in which the bone's mineral content and density are low, increasing a person's risk of fractures. The lumbar spine (lower back) and the hip are the skeletal sites usually examined. For the test, remember that: 1. You cannot take this test if you are . 2. Eat a normal diet on the day of the test. 3. Take your medications as you normally would. 4. DO NOT take calcium supplements (such as Tums) for 24 hours before the test. 5. On the day of the test, leave valuables (jewelry or credit cards) at home. 6. The test should be performed prior to oral, rectal or IV contrast studies, or at least 7 days after any of these studies. For the test, you may be asked to wear a hospital gown. You will lie on your back, on a padded table, in a comfortable position. Generally, you can resume your usual activities immediately. Referring Provider: SELF [[id number]] Allergies As of Date: 01/28/2018 Noted Allergy Reaction DEMEROL (MEPERIDINE (PF)) 07/11/2005 1 - Mental Status Change LEVAQUIN (LEVOFLOXACIN) 08/11/2014 8 - GI Upset MORPHINE 01/28/2018 11 - Vomiting Date Reviewed: 01/28/2018 Reviewed by: Omaira Corona Ma - Fully Assessed Reason for Visit: Edema [39] Cmt: Right foot and ankle Primary Visit Diagnosis:Disorder of bone and cartilage [M89.9, M94.9] Other Visit Diagnoses:Essential hypertension, benign [I10] Foot pain, right [M79.671] Bilateral leg edema [R60.0] Stress fracture of right tibia, sequela [M84.361S] Mixed hyperlipidemia [E78.2] 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thy, unspecified whether skilled nursing insulin use (HCC) [E11.21] Order(s):lisinopril (ZESTRIL, PRINIVIL) 10 mg tabletTake 1 tablet by mouth once daily.Disp: 90 tabletRfl: 1 nateglinide (STARLIX) 60 mg tabletTake 1 tablet by mouth three times daily before meals.Disp: 270 tabletRfl: 3 DXA-AXIAL SKELETON [[id number]] Order #: [id number] FUTURE Prescriptions as of 01/28/2018 Sig: LISINOPRIL 10 MG TABLET Take 1 tablet by mouth once d* NATEGLINIDE 60 MG TABLET Take 1 tablet by mouth three * COMPOUNDED PRESCRIPTION Primal Force for joints COMPOUNDED PRESCRIPTION Artery Cleanse COMPOUNDED PRESCRIPTION Cardio Jackson Healthy heart* OMEGA 7-OPV-YTX-OTHER OM3-D3 * Take by mouth. ASPIRIN 81 MG TABLET,DELAYED * Take 81 mg by mouth every oth* CINNAMON BARK 500 MG CAPSULE Take 1 capsule by mouth once * ASCORBIC ACID (VITAMIN C) 500* Take 1 tablet by mouth once d* CALCIUM CARBONATE 500 MG (1,2* Take one(1) tablet daily. TAGAMET 300 MG TABLET Take one(1) tablet daily. XALATAN 0.005 % EYE DROPS one drop both eyes q hs ACETAMINOPHEN 500 MG CAPSULE Take 1,000 mg by mouth twice * GABAPENTIN 300 MG CAPSULE Take 1 capsule by mouth daily* Problem List As Of Date 01/28/2018 Noted Resolved DERMATOPHYTOSIS OF NAIL [B35.1] INVALID FOR* LUMBAGO [M54.5] PERS HX COLONIC POLYPS [Z86.010] More... DIVERTICULOSIS OF COLON W/O BLEED [K57.30] More... Unspecified hemorrhoids without mention of comp* 03/14/2016 More... 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] INVALID FOR* Mixed hyperlipidemia [E78.2] INVALID FOR* Impaired fasting glucose [R73.01] INVALID FOR*11/22/2014 Onychia and paronychia of toe [L03.039] INVALID FOR*09/26/2016 Ingrowing nail [L60.0] INVALID FOR*09/26/2016 Benign paroxysmal positional vertigo [H81.10] INVALID FOR* Dizziness [R42] INVALID FOR*09/26/2016 Neuropathy [G62.9] INVALID FOR* Diabetes mellitus (HCC) [E11.9] INVALID FOR*02/08/2014 Family history of colon cancer [Z80.0] INVALID FOR* Diabetes mellitus (HCC) [E11.9] INVALID FOR* Carotid arterial disease (HCC) [I77.9] INVALID FOR* 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] INVALID FOR* Pain in right hip [M25.551] INVALID FOR* 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] INVALID FOR* Pain in right knee [M25.561] INVALID FOR* Abnormal mammogram [R92.8] INVALID FOR* Candidiasis of skin and nail [B37.2] INVALID FOR*04/17/2017 Pancreatic cyst [K86.2] INVALID FOR* CKD (chronic kidney disease) stage 1, GFR 90 ml*INVALID FOR*08/12/2017 Chronic renal insufficiency, stage 3 (moderate)*INVALID FOR* Other instructions from your clinician: BONE MINERAL DENSITY PATIENT INSTRUCTIONS Bone mineral density testing measures the amount of calcium in certain parts of your bones. This information determines how strong your bones are. The test is used to detect osteoporosis, a disease in which the bone's mineral content and density are low, increasing a person's risk of fractures. The lumbar spine (lower back) and the hip are the skeletal sites usually examined. For the test, remember that: 1. You cannot take this test if you are . 2. Eat a normal diet on the day of the test. 3. Take your medications as you normally would. 4. DO NOT take calcium supplements (such as Tums) for 24 hours before the test. 5. On the day of the test, leave valuables (jewelry or credit cards) at home. 6. The test should be performed prior to oral, rectal or IV contrast studies, or at least 7 days after any of these studies. For the test, you may be asked to wear a hospital gown. You will lie on your back, on a padded table, in a comfortable position. Generally, you can resume your usual activities immediately. Prescriptions ordered this encounter Disp Refills Start End LISINOPRIL 10 MG TABLET 90 t* 1 01/28/2018 Route: ORAL Sig: Take 1 tablet by mouth once daily. NATEGLINIDE 60 MG TABLET 270 * 3 01/28/2018 Route: ORAL Sig: Take 1 tablet by mouth three times daily before meals. Medications Discontinued During This Encounter amLODIPine (NORVASC) 5 mg tablet 90 t* 1 08/12/2017 01/28/2018 Route: ORAL Sig: Take 1 tablet by mouth once daily. Disc: Reason for discontinue is not on file. lisinopril (ZESTRIL, PRINIVIL) 10 mg* 90 t* 1 08/12/2017 01/28/2018 Route: ORAL Sig: Take 1 tablet by mouth once daily. Disc: Reason for discontinue is not on file. nateglinide (STARLIX) 60 mg tablet 270 * 3 01/14/2017 01/28/2018 Route: ORAL Sig: Take 1 tablet by mouth three times daily before meals. Disc: Reason for discontinue is not on file. Disposition: Return in about 2 weeks (around 02/11/2018). Follow-up and Disposition History Recorded Encounter Status:Closed by Rodríguez CAMPBELL PA-C on 01/28/18 BASIC METABOLIC PANL Collected: 01/28/2018 Status: F Source: [place] 8:22 AM [facility] REPOSITORY TYPE CODE TESTS RESULT OUT OF REFERENCE UNITS RANGE LAB GLU 74-99 mg/dL High Glucose 125 Result Comment: The [place] [employer] (ADA) provides guidance for cutoff values for fasting glucose and random glucose. The ADA defines fasting as no caloric intake for at least 8 hours. Fas ting plasma glucose results between 100 to 125 mg/dL indicate increased risk for diabetes (prediabetes). Fasting plasma glucose results greater than or equal to 126 mg/dL meet the criteria for diagnosis of diabetes. In the absence of unequivocal hyperglycemia, results should be confirmed by repeat testing. In a patient with classic symptoms of hyperglycemia or hyperglycemic crisis, random plasma glucose results greater than or equal to 200 mg/dL meet the criteria for diagnosis of diabetes. Reference: Standards of Medical Care in Diabetes 2016, [place] [employer]. Diabetes Care. 2016.39(Suppl 1). LAB BUN 7-21 mg/dL BUN 20 LAB CRET 0.58-0.96 mg/dL Creatinine High 1.08 LAB NA 136-144 mmol/L Sodium 139 LAB K 3.7-5.1 mmol/L Potassium 4.6 LAB CL 97-105 mmol/L Chloride 102 LAB CO2 22-30 mmol/L CO2 25 LAB AGAP 9-18 mmol/L Anion Gap 12 LAB CA 8.5-10.2 mg/dL Calcium, Total 9.9 LAB GFRAA eGFR- Amer. 59 LAB GFRNAA . eGFR-All Other Races 49 Result Comment: eGFR (Estimated GFR) Units of measure: mL/min/1.73 meters squared eGFR is derived from the reexpressed MDRD Study equation using the following parameters: serum creatinine, age, gender and race. The creatinine assay has been calibrated to be traceable to IDMS. An eGFR <60 mL/min/1.73m2 for >3 months is consistent with chronic kidney disease. Refer to KDOQI guidelines for clinical interpretation. In patients with unstable renal function, e.g. those with acute kidney injury, the eGFR may not accurately reflect actual GFR. Performed By: #### BMP, HBA1C #### [facility] [employer] [address] [place], [place] [address] HEMOGLOBIN A1C Collected: 01/28/2018 Status: F Source: [place] 8:22 AM [facility] REPOSITORY TYPE CODE TESTS RESULT OUT OF REFERENCE UNITS RANGE LAB HGBA1C 4.3-5.6 % High Hemoglobin A1c 6.3 LAB HBA0 mg/dL Est. Average Glucose 134 Result Comment: eAG: (Estimated average glucose) is a calculated value from HgbA1c and is business services sales representative of the average blood glucose level in the last 2-3 month period. Performed By: #### BMP, HBA1C #### [facility] [employer] [address] [place], [place] [address] FOOT COMPLETE RT Observed: 01/27/2018 Status: F Source: [place] 4:36 PM [place] [address] Patient: DEBBIE KENNEY Phone#: : [phone] Age: 82 Gender: F Pt. Type: Out Account: [id number] Location: Ordering: CELIO MOISE Exam Date: 01/27/2018/16:19 Family Phys: PHILIP TODD Charge Code: 829970 Physician: Mcdowell Order #: [id number] DLP Dose#: PROCEDURE: X-RAY FOOT RT COMPLETE MIN 3 VIEWS COMPARISON: None. INDICATIONS: Right foot pain FINDINGS: BONES: Hallux valgus deformity is present. There is lateral subluxation of the phalanx in relationship to the first metatarsal. There is no evidence of acute bone abnormality. The bones are osteopenic. Degenerative changes are present at the tarsals. SOFT TISSUES: Negative. No visible soft tissue swelling. EFFUSION: None visible. OTHER: Negative. CONCLUSION: 1. Degenerative changes of the foot. 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 Dictated by: Sandra Mitchell MD on 01/27/2018 at 16:45 Approved by: Sandra Mitchell MD on 01/27/2018 at 16:45 12 LEAD ELECTROCARDIOGRAM Observed: 11/04/2017 Status: F Source: [place] 2:04 PM [facility] REPOSITORY [facility] [address] [place] [address] 12 Lead EKG 10/31/17 1518 MR#: [id number] Acct: [id number] Name: DEBBIE KENNEY Rep #: [id number] : 1935 82 From: Brent Kelley MD Attending Dr: Baljit Lane Status: REG CLI Ordering Dr: Baljit Pimentel PA-C Date: 10/31/17 Location: LAB Sex: F C Admitted: Test Reason : PRE OP Blood Pressure : / mmHG Vent. Rate : 076 BPM Atrial Rate : 076 BPM P-R Int : 186 ms QRS Dur : 084 ms QT Int : 372 ms P-R-T Axes : 045 024 067 degrees QTc Int : 418 ms Normal sinus rhythm Normal ECG Confirmed by BRENT KELLEY MD ([id number]), film or videotape editor ROBIN PANG ([id number]) on 11/04/2017 2:04:25 PM Referred By: Baljit Pimentel Confirmed By:BRENT KELLEY MD 11/04/17 1404 Date Brent Kelley MD CC: Baljit [place]; Philip Todd MD Signed CBC-COMPLETE BLOOD CNT Collected: 10/31/2017 Status: F Source: [place] NO DIFF 2:40 PM [facility] REPOSITORY TYPE CODE TESTS RESULT OUT OF RANGE REFERENCE UNITS LAB L100.1000 4.4-11.0 K/mm3 Normal WBC 8.6 LAB L100.1200 4.2-5.4 M/mm3 Normal RBC 4.61 LAB L100.1300 12.0-15.0 g/dl Normal HGB 13.9 LAB L100.1400 37-47 % Normal HCT 41.0 LAB L100.1500 81-99 fL Normal MCV 88.9 LAB L100.1600 27.0-32.0 pg Normal MCH 30.2 LAB L100.1700 32-36 g/gl Normal MCHC 33.9 LAB L100.1810 11.6-14.6 % Normal RDW CV 14.3 LAB L100.1820 35.1-43.9 fl High RDW SD 46.1 LAB L100.1900 150-450 K/mm3 Normal PLT 294 LAB L100.2000 6.2-12.0 fl Normal MPV 10.5 Performed By: #### L100.0500 #### [facility] [address] [place], [address] BASIC METABOLIC Collected: 10/31/2017 Status: F Source: [place]A PROFILE (BMP) 2:40 PM [facility] REPOSITORY TYPE CODE TESTS RESULT OUT OF RANGE REFERENCE UNITS LAB L501.0100 74-106 mg/dL Normal GLU 101 Result Comment: Fasting Glucose result from 100 to 125 mg/dL suggests IMPAIRED HOMEOSTASIS per A.D.A. criteria. Please note revised GLUCOSE reference range effective 2017. LAB L501.1000 7-18 mg/dL Normal BUN 18 LAB L501.1100 0.55-1.02 mg/dL High CREAT,SERUM 1.10 Result Comment: The validity of the calculated GFR AND GFRAA in patients over 70 years has not been determined. Clinical correlation is essential. LAB L501.1110 >60 mL/min Low EST GFR 51 Result Comment: Non- GFR Calc LAB L501.1115 >60 mL/min Normal EST GFR - AA 61 Result Comment: GFR Calc LAB L501.1300 10-20 RATIO Normal BUN/CRE 16.4 LAB L501.2200 8.5-10.1 mg/dL CA Normal 9.3 LAB L501.5300 136-145 mmol/L NA Normal 141 LAB L501.5600 3.5-5.1 mmol/L K Normal 3.9 LAB L501.5900 98-107 mmol/L CL Normal 107 LAB L501.6100 21.0-32.0 mmol/L Normal CO2 26.0 LAB L501.6200 5-15 Normal GAP 8 Performed By: #### L500.2500 #### [facility] [place] [place], [address] PROGRESS Observed: 10/09/2017 Status: COMPLETED Source: [place] 10:16 AM [facility] REPOSITORY HNO ID: [id number] Author: Trixie Bentley LPN Service: (none) Author Type: (none) Type: Progress Notes Filed: 10/09/2017 10:23 AM Note Text: Manual Readin/64 Pulse: 70 Reason for blood pressure check - Medication adjustment Patient is: Taking medication as prescribed Yes Took medication today Yes If no, date medication last taken N/A Experiencing side effects No BP was normal at last appt 09/25/17. However, pt was concerned about her diastolic BP range. HCTZ was d/c at that time. Tolerating medication change well except has noticed some ankle swelling the last couple of days. Denies any chest pain, shortness of breath, dizziness, or headaches. Drinks decaf. No personal history of tobacco use; no current exposure. Alert and oriented. Pt has been identified by name and birthdate: Yes Allergies reviewed: Yes Latex allergy: no. Medication - prescribed and OTC reviewed and updated: Yes Do you need any prescription refills prior to your next visit: No Health Maintenance: Reviewed and not up to date and provider notified Patient advised to continue with current medications and would be contacted with any further instructions after review by PCP. Trixie Bentley LPN CNNURSE Observed: 10/09/2017 Status: COMPLETED Source: [place] 10:15 AM [facility] REPOSITORY Nurse Visit (FAMPWS) DEBBIE KENNEY ([id number]) 1935 F Date Time Provider Department 10/09/17 10:15 AM [place] NURSE FAMPWS During your visit today, we recorded the following information about you: Pulse Blood pressure 70/minute 136/64 Trixie Bentley LPN 10/09/2017 10:23 AM Signed Manual Readin/64 Pulse: 70 Reason for blood pressure check - Medication adjustment Patient is: Taking medication as prescribed Yes Took medication today Yes If no, date medication last taken N/A Experiencing side effects No BP was normal at last appt 09/25/17. However, pt was concerned about her diastolic BP range. HCTZ was d/c at that time. Tolerating medication change well except has noticed some ankle swelling the last couple of days. Denies any chest pain, shortness of breath, dizziness, or headaches. Drinks decaf. No personal history of tobacco use; no current exposure. Alert and oriented. Pt has been identified by name and birthdate: Yes Allergies reviewed: Yes Latex allergy: no. Medication - prescribed and OTC reviewed and updated: Yes Do you need any prescription refills prior to your next visit: No Health Maintenance: Reviewed and not up to date and provider notified Patient advised to continue with current medications and would be contacted with any further instructions after review by PCP. Trixie Bentley LPN Referring Provider: SELF [[id number]] Allergies As of Date: 10/09/2017 Noted Allergy Reaction DEMEROL (MEPERIDINE (PF)) 07/11/2005 1 - Mental Status Change LEVAQUIN (LEVOFLOXACIN) 08/11/2014 8 - GI Upset Date Reviewed: 09/29/2017 Reviewed by: Nissa Parham RN - Fully Assessed Reason for Visit: Blood Pressure Check [195] Primary Visit Diagnosis:Essential hypertension, benign [I10] Prescriptions as of 10/09/2017 Sig: ACETAMINOPHEN 500 MG CAPSULE Take 1,000 mg by mouth twice * GABAPENTIN 300 MG CAPSULE Take 1 capsule by mouth daily* COMPOUNDED PRESCRIPTION Primal Force for joints COMPOUNDED PRESCRIPTION Artery Cleanse COMPOUNDED PRESCRIPTION Cardio Jackson Healthy heart* LISINOPRIL 10 MG TABLET Take 1 tablet by mouth once d* AMLODIPINE 5 MG TABLET Take 1 tablet by mouth once d* OMEGA 4-DFJ-HYR-OTHER OM3-D3 * Take by mouth. ASPIRIN 81 MG TABLET,DELAYED * Take 81 mg by mouth every oth* NATEGLINIDE 60 MG TABLET Take 1 tablet by mouth three * CINNAMON BARK 500 MG CAPSULE Take 1 capsule by mouth once * ASCORBIC ACID (VITAMIN C) 500* Take 1 tablet by mouth once d* CALCIUM CARBONATE 500 MG (1,2* Take one(1) tablet daily. TAGAMET 300 MG TABLET Take one(1) tablet daily. XALATAN 0.005 % EYE DROPS one drop both eyes q hs Problem List As Of Date 10/09/2017 Noted Resolved DERMATOPHYTOSIS OF NAIL [B35.1] INVALID FOR* LUMBAGO [M54.5] PERS HX COLONIC POLYPS [Z86.010] More... DIVERTICULOSIS OF COLON W/O BLEED [K57.30] More... Unspecified hemorrhoids without mention of comp* 03/14/2016 More... 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] INVALID FOR* Mixed hyperlipidemia [E78.2] INVALID FOR* Impaired fasting glucose [R73.01] INVALID FOR*11/22/2014 Onychia and paronychia of toe [L03.039] INVALID FOR*09/26/2016 Ingrowing nail [L60.0] INVALID FOR*09/26/2016 Benign paroxysmal positional vertigo [H81.10] INVALID FOR* Dizziness [R42] INVALID FOR*09/26/2016 Neuropathy [G62.9] INVALID FOR* Diabetes mellitus (HCC) [E11.9] INVALID FOR*02/08/2014 Family history of colon cancer [Z80.0] INVALID FOR* Diabetes mellitus (HCC) [E11.9] INVALID FOR* Carotid arterial disease (HCC) [I77.9] INVALID FOR* 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] INVALID FOR* Pain in right hip [M25.551] INVALID FOR* 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] INVALID FOR* Pain in right knee [M25.561] INVALID FOR* Abnormal mammogram [R92.8] INVALID FOR* Candidiasis of skin and nail [B37.2] INVALID FOR*04/17/2017 Pancreatic cyst [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 The ADA defines fasting as no caloric intake for at least 8 hours. Fas ting plasma glucose results between 100 to 125 mg/dL indicate increased risk for diabetes (prediabetes). Fasting plasma glucose results greater than or equal to 126 mg/dL meet the criteria for diagnosis of diabetes. In the absence of unequivocal hyperglycemia, results should be confirmed by repeat testing. In a patient with classic symptoms of hyperglycemia or hyperglycemic crisis, random plasma glucose results greater than or equal to 200 mg/dL meet the criteria for diagnosis of diabetes. Reference: Standards of Medical Care in Diabetes 2016, [place] [employer]. Diabetes Care. 2016.39(Suppl 1). LAB BUN 7-21 mg/dL BUN High 22 LAB CRET 0.58-0.96 mg/dL Creatinine High 1.17 LAB NA 136-144 mmol/L Sodium 139 LAB K 3.7-5.1 mmol/L Potassium 4.3 LAB CL 97-105 mmol/L Chloride 101 LAB CO2 22-30 mmol/L CO2 23 LAB AGAP 9-18 mmol/L Anion Gap 15 LAB CA 8.5-10.2 mg/dL Calcium, Total 9.9 LAB GFRAA eGFR- Amer. 54 LAB GFRNAA . eGFR-All Other Races 44 Result Comment: eGFR (Estimated GFR) Units of measure: mL/min/1.73 meters squared eGFR is derived from the reexpressed MDRD Study equation using the following parameters: serum creatinine, age, gender and race. The creatinine assay has been calibrated to be traceable to IDMS. An eGFR <60 mL/min/1.73m2 for >3 months is consistent with chronic kidney disease. Refer to KDOQI guidelines for clinical interpretation. In patients with unstable renal function, e.g. those with acute kidney injury, the eGFR may not accurately reflect actual GFR. Performed By: #### BMP, HBA1C #### [facility] [address] [place] [id number] HEMOGLOBIN A1C Collected: 10/09/2017 Status: F Source: [place] 9:58 AM [facility] REPOSITORY TYPE CODE TESTS RESULT OUT OF REFERENCE UNITS RANGE LAB HGBA1C 4.3-5.6 % High Hemoglobin A1c 7.0 LAB HBA0 mg/dL Est. Average Glucose 154 Result Comment: eAG: (Estimated average glucose) is a calculated value from HgbA1c and is business services sales representative of the average blood glucose level in the last 2-3 month period. Performed By: #### BMP, HBA1C #### [facility] [address] [place], [place] [address] PROGRESS Observed: 09/29/2017 Status: COMPLETED Source: [place] 5:30 PM [facility] REPOSITORY HNO ID: [id number] Author: Anthony Nunez Service: (none) Author Type: Physician Type: Progress Notes Filed: 09/29/2017 5:36 PM Note Text: Anthony Nunez MD Department of Orthopaedics Orthopaedics [address] [facility] [address] Dept: [phone] Dept September 29, 2017 CHIEF COMPLAINT: Recheck (1 week 4 days post visit aspiration and injection right knee) Ms. Debbie Kenney is a 82 year old female who returns with persistent burning, severe pain in the right knee. She states the injection did not help. She's been taking Tylenol. She has significant sensitivity on the inner portion of the knee. ASSESSMENT: M25.561 Acute pain of right knee (primary encounter diagnosis) M17.11 Primary osteoarthritis of right knee PLAN: while she certainly can be having an exacerbation of her arthritis, patient does not feel this to be the case. Honestly bit difficult to determine what's causing her symptoms as she is severely tender very superficially on the skin without any cutaneous signs. There is no warmth in the knee, very minimal if any swelling. My recommendation is for some Ultram and some gabapentin. I'll touch base with her medical doctor to see if an anti-inflammatory or Indocin for a few days to be okay. She does have slightly elevated creatinine and may not be good for NSAIDs. Ms. Debbie Kenney was advised as to contrast therapies and/or to take analgesics/anti-inflammatories as needed and all contraindications were reviewed. OBJECTIVE: Ms. Debbie Kenney is a pleasant 82 year old in no apparent distress. Gen:There were no vitals taken for this visit. nl development, morbidly obese, no deformities ENT: Normocephalic, normal hearing, moist mucosa CV: Pulses:DP/PT= 2+ and symmetric, capillary refill < 2 secs, no peripheral edema/varicosities Skin: no rash, bruising or lesions. Good turgor. Psych: cooperative and appropriate, alert and oriented x 3, good mood and affect. Musculoskeletal: though she does seem slightly less painful than her previous visit, she still has very superficial cutaneous severe pain on light touch. Motion is not bad, though with flexion and internal rotation she has quite a bit of hip pain, not reproducing her knee pain. Imaging: IMPRESSION: Osteoarthrosis Legal Support Specialist: [facility] ? Transcribe Date/Time: Sep 29 2017 ?2:41P Dictated by : QUYEN YANEZ MD This examination was interpreted and the report reviewed and electronically signed by: QUYEN YANEZ MD on Sep 29 2017 ?2:42PM ?EST Results-Findings * * *Final Report* * * DATE OF EXAM: Sep 29 2017 ?2:29PM ? WRX ? 5203 ?- ?XR KNEE 4V AP/PA BOTH+LAT/GABRIEL RT ?/ PROCEDURE REASON: multiple diagnoses ?? ? * * * * Physician Interpretation * * * * ?PROCEDURE: ?Right knee INDICATION: ?Pain in right knee Unilateral primary osteoarthritis, right knee ?. TECHNIQUE: ?XR KNEE 4V AP/PA BOTH+LAT/GABRIEL RT COMPARISON: ?01/24/2015 FINDINGS: There is mild/moderate medial joint compartment narrowing with minimal tricompartment formation, greater than seen on the prior study. ?No fracture or joint effusion is evident. ?There is significant medial joint compartment narrowing in the left knee. Supporting Subjective Information Below: Past Surgical History: PAST SURGICAL HISTORY Procedure Laterality Date - CATARACT EXTRACTION HX Bilateral 12 - COLONOSCOP W/ OR W/O [facility] SPEC 03/26/02 Colonoscopy - COLONOSCOP W/ OR W/O [facility] SPEC 05/18/2008 Colonoscopy - COLONOSCOP W/ OR W/O [facility] SPEC 01/13/14 Colonoscopy - REMOVAL GALLBLADDER 97 Cholecystectomy - REPAIR ING HERNIA,5+Y/O,REDUCIBL Hernia repair, inguinal - VAGINAL HYSTERECTOMY 77 Hysterectomy, vaginal Medications: Current Outpatient Prescriptions: Acetaminophen 500 mg cap Take 1,000 mg by mouth twice daily. COMPOUNDED PRESCRIPTION Primal Force for joints COMPOUNDED PRESCRIPTION Artery Cleanse COMPOUNDED PRESCRIPTION Cardio Jackson Healthy heart/arteries lisinopril (ZESTRIL, PRINIVIL) 10 mg tablet Take 1 tablet by mouth once daily. amLODIPine (NORVASC) 5 mg tablet Take 1 tablet by mouth once daily. OMEGA 0-VQL-VLE-OTHER OM3-D3 ORAL Take by mouth. aspirin, enteric coated (ASPIRIN, ENTERIC COATED) 81 mg EC tablet Take 81 mg by mouth every other day. nateglinide (STARLIX) 60 mg tablet Take 1 tablet by mouth three times daily before meals. Cinnamon Bark (CINNAMON) 500 mg ORAL Cap Take 1 capsule by mouth once daily. ascorbic acid (VITAMIN C) 500 mg ORAL tablet Take 1 tablet by mouth once daily. calcium-vitamin D 500 mg(1,250mg) -200 unit ORAL per tablet Take one(1) tablet daily. cimetidine(TAGAMET 300 MG TAB) Take one(1) tablet daily. XALATAN 0.005 % EYE DROPS one drop both eyes q hs gabapentin (NEURONTIN) 300 mg capsule Take 1 capsule by mouth daily at bedtime for 10 days. traMADol (ULTRAM) 50 mg tablet Take 1 tablet by mouth every 8 hours as needed for Pain for up to 7 days. No current facility-administered medications for this visit. Allergies: Demerol [Meperidine (Pf)]; Levaquin [Levofloxacin] ROS: General (negative for fatigue, malaise, weight loss/gain) HEENT (negative for headache, earache, recent vision changes, sinus pain, sore throat) Respiratory (no recent shortness of breath, hemoptysis) CV (negative for chest tightness, palpitations) Musculoskeletal (see HPI) Psych (no depression, anxiety) This note was partially generated using [employer] voice recognition system, and there may be some incorrect words, spellings, and punctuation that were not noted in checking the note before saving. MD ACOSTA Alvarado 4V AP/PA Observed: 09/29/2017 Status: F Source: [place] BOTH+LAT/GABRIEL RT 2:29 PM [facility] REPOSITORY * * *Final Report* * * DATE OF EXAM: Sep 29 2017 2:29PM WRX 5203 - XR KNEE 4V AP/PA BOTH+LAT/GABRIEL RT / PROCEDURE REASON: multiple diagnoses * * * * Physician Interpretation * * * * PROCEDURE: Right knee INDICATION: Pain in right knee Unilateral primary osteoarthritis, right knee . TECHNIQUE: XR KNEE 4V AP/PA BOTH+LAT/GABRIEL RT COMPARISON: 01/24/2015 FINDINGS: There is mild/moderate medial joint compartment narrowing with minimal tricompartment formation, greater than seen on the prior study. No fracture or joint effusion is evident. There is significant medial joint compartment narrowing in the left knee. IMPRESSION: Osteoarthrosis Legal Support Specialist: PSCB Transcribe Date/Time: Sep 29 2017 2:41P Dictated by : QUYEN YANEZ MD This examination was interpreted and the report reviewed and electronically signed by: QUYEN YANEZ MD on Sep 29 2017 2:42PM EST [id number] PROGRESS Observed: 09/29/2017 Status: COMPLETED Source: [place] 2:06 PM [facility] REPOSITORY HNO ID: [id number] Author: Conchis Fontaine (Rt) Natali Fernando Service: (none) Author Type: Director Business Integration Type: Progress Notes Filed: 09/29/2017 2:29 PM Note Text: Radiology Service Progress Note PATIENT NAME: Debbie Kenney DATE OF SERVICE: September 29, 2017 TIME: 2:06 PM PATIENT IDENTITY VERIFICATION COMPLETED USING TWO (2) METHODS: Patient confirmed name verbally and Date of . PATIENT GENDER DATA: Female. status: : No status: NO. PATIENT RELEVANT IMPLANT DATA REVIEWED: Not Applicable RADIOLOGY DEPARTMENT: General X-ray: Exam(s) Completed: Lower Extremity X-Ray(s): Knee, AP / Lat / Tunne / Merchant Right and Wt. Bearing: PERIPHERAL IV DATA: Not applicable SIGNED BY: RT Rhys September 29, 2017 2:06 PM CNOV Observed: 09/29/2017 Status: COMPLETED Source: [place] 1:15 PM [facility] REPOSITORY Office Visit (ORTHWS) DEBBIE KENNEY ([id number]) 1935 F Date Time Provider Department 09/29/17 1:15 PM ANTHONY NUNEZ During your visit today, we recorded the following information about you: Nissa Parham RN 09/29/2017 5:36 PM Signed AMB ROOMING INTAKE FLOWSHEET DATA Risk Screening Do you have concerns about personal safety or safety in the home?: No Pain Pain Score: (5-10) Pain Location: Knee-Right Description: Burning Duration Units: (ongoing) Frequency: Continuous Intervention: Medication, Support surface Patient presents with: Recheck: 1 week 4 days post visit aspiration and injection right knee Pt. states injection did not help and pain continues to be burning and severe. She has been taking Tylenol 1000 mg twice daily, along with ice, but has no lasting relief. Anthony Nunez MD 09/29/2017 5:36 PM Signed Anthony Nunez MD Department of Orthopaedics Orthopaedics [address] [place] [id number] Dept: [phone] Dept September 29, 2017 CHIEF COMPLAINT: Recheck (1 week 4 days post visit aspiration and injection right knee) Ms. Debbie Kenney is a 82 year old female who returns with persistent burning, severe pain in the right knee. She states the injection did not help. She's been taking Tylenol. She has significant sensitivity on the inner portion of the knee. ASSESSMENT: M25.561 Acute pain of right knee (primary encounter diagnosis) M17.11 Primary osteoarthritis of right knee PLAN: while she certainly can be having an exacerbation of her arthritis, patient does not feel this to be the case. Honestly bit difficult to determine what's causing her symptoms as she is severely tender very superficially on the skin without any cutaneous signs. There is no warmth in the knee, very minimal if any swelling. My recommendation is for some Ultram and some gabapentin. I'll touch base with her medical doctor to see if an anti-inflammatory or Indocin for a few days to be okay. She does have slightly elevated creatinine and may not be good for NSAIDs. Ms. Debbie Kenney was advised as to contrast therapies and/or to take analgesics/anti-inflammatories as needed and all contraindications were reviewed. OBJECTIVE: Ms. Debbie Kenney is a pleasant 82 year old in no apparent distress. Gen:There were no vitals taken for this visit. nl development, morbidly obese, no deformities ENT: Normocephalic, normal hearing, moist mucosa CV: Pulses:DP/PT= 2+ and symmetric, capillary refill ANDlt; 2 secs, no peripheral edema/varicosities Skin: no rash, bruising or lesions. Good turgor. Psych: cooperative and appropriate, alert and oriented x 3, good mood and affect. Musculoskeletal: though she does seem slightly less painful than her previous visit, she still has very superficial cutaneous severe pain on light touch. Motion is not bad, though with flexion and internal rotation she has quite a bit of hip pain, not reproducing her knee pain. Imaging: IMPRESSION: Osteoarthrosis Legal Support Specialist: OSCAR ? Transcribe Date/Time: Sep 29 2017 ?2:41P Dictated by : QUYEN YANEZ MD This examination was interpreted and the report reviewed and electronically signed by: QUYEN YANEZ MD on Sep 29 2017 ?2:42PM ?EST Results-Findings * * *Final Report* * * DATE OF EXAM: Sep 29 2017 ?2:29PM ? WRX ? [id number] ?- ?XR KNEE 4V AP/PA BOTH+LAT/GABRIEL RT ?/ PROCEDURE REASON: multiple diagnoses ?? ? * * * * Physician Interpretation * * * * ?PROCEDURE: ?Right knee INDICATION: ?Pain in right knee Unilateral primary osteoarthritis, right knee ?. TECHNIQUE: ?XR KNEE 4V AP/PA BOTH+LAT/GABRIEL RT COMPARISON: ?01/24/2015 FINDINGS: There is mild/moderate medial joint compartment narrowing with minimal tricompartment formation, greater than seen on the prior study. ?No fracture or joint effusion is evident. ?There is significant medial joint compartment narrowing in the left knee. Supporting Subjective Information Below: Past Surgical History: PAST SURGICAL HISTORY Procedure Laterality Date - CATARACT EXTRACTION HX Bilateral 12 - COLONOSCOP W/ OR W/O [facility] SPEC 03/26/02 Colonoscopy - COLONOSCOP W/ OR W/O [facility] SPEC 05/18/2008 Colonoscopy - COLONOSCOP W/ OR W/O [facility] SPEC 01/13/14 Colonoscopy - REMOVAL GALLBLADDER 97 Cholecystectomy - REPAIR ING HERNIA,5+Y/O,REDUCIBL Hernia repair, inguinal - VAGINAL HYSTERECTOMY 77 Hysterectomy, vaginal Medications: Current Outpatient Prescriptions: Acetaminophen 500 mg cap Take 1,000 mg by mouth twice daily. COMPOUNDED PRESCRIPTION Primal Force for joints COMPOUNDED PRESCRIPTION Artery Cleanse COMPOUNDED PRESCRIPTION Cardio Jackson Healthy heart/arteries lisinopril (ZESTRIL, PRINIVIL) 10 mg tablet Take 1 tablet by mouth once daily. amLODIPine (NORVASC) 5 mg tablet Take 1 tablet by mouth once daily. OMEGA 6-ENC-JWV-OTHER OM3-D3 ORAL Take by mouth. aspirin, enteric coated (ASPIRIN, ENTERIC COATED) 81 mg EC tablet Take 81 mg by mouth every other day. nateglinide (STARLIX) 60 mg tablet Take 1 tablet by mouth three times daily before meals. Cinnamon Bark (CINNAMON) 500 mg ORAL Cap Take 1 capsule by mouth once daily. ascorbic acid (VITAMIN C) 500 mg ORAL tablet Take 1 tablet by mouth once daily. calcium-vitamin D 500 mg(1,250mg) -200 unit ORAL per tablet Take one(1) tablet daily. cimetidine(TAGAMET 300 MG TAB) Take one(1) tablet daily. XALATAN 0.005 % EYE DROPS one drop both eyes q hs gabapentin (NEURONTIN) 300 mg capsule Take 1 capsule by mouth daily at bedtime for 10 days. traMADol (ULTRAM) 50 mg tablet Take 1 tablet by mouth every 8 hours as needed for Pain for up to 7 days. No current facility-administered medications for this visit. Allergies: Demerol [Meperidine (Pf)]; Levaquin [Levofloxacin] ROS: General (negative for fatigue, malaise, weight loss/gain) HEENT (negative for headache, earache, recent vision changes, sinus pain, sore throat) Respiratory (no recent shortness of breath, hemoptysis) CV (negative for chest tightness, palpitations) Musculoskeletal (see HPI) Psych (no depression, anxiety) This note was partially generated using [employer] voice recognition system, and there may be some incorrect words, spellings, and punctuation that were not noted in checking the note before saving. Anthony Nunez MD Referring Provider: ANTHONY NUNEZ [[id number]] Allergies As of Date: 09/29/2017 Noted Allergy Reaction DEMEROL (MEPERIDINE (PF)) 07/11/2005 1 - Mental Status Change LEVAQUIN (LEVOFLOXACIN) 08/11/2014 8 - GI Upset Date Reviewed: 09/29/2017 Reviewed by: Nissa Parham RN - Fully Assessed Reason for Visit: Recheck [92] Cmt: 1 week 4 days post visit aspiration and injection right knee Primary Visit Diagnosis:Acute pain of right knee [M25.561] Other Visit Diagnosis:Primary osteoarthritis of right knee [M17.11] Order(s):XR KNEE GENERAL 4V AP BOTH/PA BOTH/LAT/MERC RT [[id number]] Order #: [id number] FUTURE gabapentin (NEURONTIN) 300 mg capsuleTake 1 capsule by mouth daily at bedtime for 10 days.Disp: 10 capsuleRfl: 0 traMADol (ULTRAM) 50 mg tabletTake 1 tablet by mouth every 8 hours as needed for Pain for up to 7 days.Disp: 28 tabletRfl: 0 Prescriptions as of 09/29/2017 Sig: ACETAMINOPHEN 500 MG CAPSULE Take 1,000 mg by mouth twice * COMPOUNDED PRESCRIPTION Primal Force for joints COMPOUNDED PRESCRIPTION Artery Cleanse COMPOUNDED PRESCRIPTION Cardio Jackson Healthy heart* LISINOPRIL 10 MG TABLET Take 1 tablet by mouth once d* AMLODIPINE 5 MG TABLET Take 1 tablet by mouth once d* OMEGA 3-BHW-ORF-OTHER OM3-D3 * Take by mouth. ASPIRIN 81 MG TABLET,DELAYED * Take 81 mg by mouth every oth* NATEGLINIDE 60 MG TABLET Take 1 tablet by mouth three * CINNAMON BARK 500 MG CAPSULE Take 1 capsule by mouth once * ASCORBIC ACID (VITAMIN C) 500* Take 1 tablet by mouth once d* CALCIUM CARBONATE 500 MG (1,2* Take one(1) tablet daily. TAGAMET 300 MG TABLET Take one(1) tablet daily. XALATAN 0.005 % EYE DROPS one drop both eyes q hs GABAPENTIN 300 MG CAPSULE Take 1 capsule by mouth daily* TRAMADOL 50 MG TABLET Take 1 tablet by mouth every * Problem List As Of Date 09/29/2017 Noted Resolved DERMATOPHYTOSIS OF NAIL [B35.1] INVALID FOR* LUMBAGO [M54.5] PERS HX COLONIC POLYPS [Z86.010] More... DIVERTICULOSIS OF COLON W/O BLEED [K57.30] More... Unspecified hemorrhoids without mention of comp* 03/14/2016 More... 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] INVALID FOR* Mixed hyperlipidemia [E78.2] INVALID FOR* Impaired fasting glucose [R73.01] INVALID FOR*11/22/2014 Onychia and paronychia of toe [L03.039] INVALID FOR*09/26/2016 Ingrowing nail [L60.0] INVALID FOR*09/26/2016 Benign paroxysmal positional vertigo [H81.10] INVALID FOR* Dizziness [R42] INVALID FOR*09/26/2016 Neuropathy [G62.9] INVALID FOR* Diabetes mellitus (HCC) [E11.9] INVALID FOR*02/08/2014 Family history of colon cancer [Z80.0] INVALID FOR* Diabetes mellitus (HCC) [E11.9] INVALID FOR* Carotid arterial disease (HCC) [I77.9] INVALID FOR* 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] INVALID FOR* Pain in right hip [M25.551] INVALID FOR* 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 TRAMADOL 50 MG TABLET 28 t* 0 09/29/2017 10/06/2017 Class: Print RX Route: ORAL Sig: Take 1 tablet by mouth every 8 hours as needed for Pain for up to 7 days. Follow-up and Disposition History Recorded Encounter Status:Closed by ANTHONY NUNEZ MD on 09/29/17 PROGRESS Observed: 09/29/2017 Status: COMPLETED Source: [place] 1:10 PM [facility] RE[facility] HNO ID: [id number] Author: Nissa Parham RN Service: (none) Author Type: (none) Type: Progress Notes Filed: 09/29/2017 5:36 PM Note Text: AMB ROOMING INTAKE FLOWSHEET DATA Risk Screening Do you have concerns about personal safety or safety in the home?: No Pain Pain Score: (5-10) Pain Location: Knee-Right Description: Burning Duration Units: (ongoing) Frequency: Continuous Intervention: Medication, Support surface Patient presents with: Recheck: 1 week 4 days post visit aspiration and injection right knee Pt. states injection did not help and pain continues to be burning and severe. She has been taking Tylenol 1000 mg twice daily, along with ice, but has no lasting relief. PROGRESS Observed: 09/25/2017 Status: COMPLETED Source: [place] 10:06 AM [facility] REPOSITORY O ID: [id number] Author: Philip Todd Service: (none) Author Type: Physician Type: Progress Notes Filed: 09/25/2017 5:03 PM Note Text: Patient presents with: Knee Pain: right Recheck: OV 09/03 HPI: Patient presents today for office visit for follow up. Saw Dr. Nunez who attempted an aspiration with minimal results. Did inject with steroids. She does have oa of the knee. She had mild relief for a day. She was told to return to see Dr. Nunez if not any better. Using tylenol. Recommended she continue icing. She does not want any pain meds Component Latest Ref Rng AND Units 09/03/2017 Glucose 74 - 99 mg/dL 136 (H) BUN 7 - 21 mg/dL 26 (H) Creatinine 0.58 - 0.96 mg/dL 1.16 (H) Sodium 136 - 144 mmol/L 136 Potassium 3.7 - 5.1 mmol/L 4.1 Chloride 97 - 105 mmol/L 99 CO2 22 - 30 mmol/L 20 (L) Anion Gap 9 - 18 mmol/L 17 Calcium 8.5 - 10.2 mg/dL 10.0 eGFR- 54 eGFR-All Other Races . 45 BRADLEY Negative Negative BRADLEY Titer Negative Negative BRDALEY Pattern Not applicable for negative result. Magnesium 1.7 - 2.3 mg/dL 1.8 CK 42 - 196 U/L 42 WSR 0 - 20 mm/hr 20 CRP <0.9 mg/dL 1.6 (H) Rheumatoid Factor <16 IU/mL <10 Uric Acid 2.5 - 6.6 mg/dL 6.7 (H) Vitamin D 25 Hydroxy 31.0 - 80.0 ng/mL 33.7 MEDICATIONS: Current Outpatient Prescriptions: COMPOUNDED PRESCRIPTION Primal Force for joints COMPOUNDED PRESCRIPTION Artery Cleanse COMPOUNDED PRESCRIPTION Cardio Jackson Healthy heart/arteries lisinopril (ZESTRIL, PRINIVIL) 10 mg tablet Take 1 tablet by mouth once daily. amLODIPine (NORVASC) 5 mg tablet Take 1 tablet by mouth once daily. hydroCHLOROthiazide (HYDRODIURIL, ESIDRIX) 25 mg tablet Take 0.5 tablets by mouth once daily. OMEGA 5-TZU-SHC-OTHER OM3-D3 ORAL Take by mouth. aspirin, enteric coated (ASPIRIN, ENTERIC COATED) 81 mg EC tablet Take 81 mg by mouth every other day. nateglinide (STARLIX) 60 mg tablet Take 1 tablet by mouth three times daily before meals. Cinnamon Bark (CINNAMON) 500 mg ORAL Cap Take 1 capsule by mouth once daily. ascorbic acid (VITAMIN C) 500 mg ORAL tablet Take 1 tablet by mouth once daily. calcium-vitamin D 500 mg(1,250mg) -200 unit ORAL per tablet Take one(1) tablet daily. cimetidine(TAGAMET 300 MG TAB) Take one(1) tablet daily. XALATAN 0.005 % EYE DROPS one drop both eyes q hs No current facility-administered medications for this visit. 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 - Benign neoplasm of colon - Diverticulosis of colon (without mention of hemorrhage) Diverticulosis - Glaucoma - HTN (hypertension) - Hyperlipidemia - Left carotid stenosis checking yearly - Lumbago - Macular pucker of both eyes stable - Other specified glaucoma - Posterior capsule opacification OD - Pseudophakia of both eyes stable - Ptosis of eyelid OU-stable - Snoring - Type II or unspecified type diabetes mellitus without mention of complication, not stated as uncontrolled PAST SURGICAL HISTORY Procedure Laterality Date - CATARACT EXTRACTION HX Bilateral 12 - COLONOSCOP W/ OR W/O [facility] SPEC 03/26/02 Colonoscopy - COLONOSCOP W/ OR W/O [facility] SPEC 05/18/2008 Colonoscopy - COLONOSCOP W/ OR W/O [facility] SPEC 01/13/14 Colonoscopy - REMOVAL GALLBLADDER 97 Cholecystectomy - REPAIR ING HERNIA,5+Y/O,REDUCIBL Hernia repair, inguinal - VAGINAL HYSTERECTOMY 77 Hysterectomy, vaginal FAMILY HISTORY Problem Relation Age of Onset - Heart Mother pacemaker - Hypertension Mother - Diabetes Sister - Colon Cancer Brother - Heart Brother mi - Diabetes Brother - Diabetes Father - Heart Father - Cancer Brother lung - Cancer Brother pancrease Social History Marital status: Spouse name: Years of education: Number of children: Social History Main Topics Smoking status: Never Smoker Smokeless status: Never Used Alcohol use: No Drug use: No Reviewed current medications, allergies, past medical history, surgical history, family history and social history today. REVIEW OF SYSTEMS All other reviewed and negative other than HPI. HEALTH MAINTENANCE: Reviewed health maintenance issues today and recommended the following in detail. TETANUS due on 11/18/2001 DILATED RETINAL EXAM did on friday HBA1C due on 10/09/2017 VITALS: BP 124/56 Pulse 64 Temp 36.5 ?C (97.7 ?F) Resp 16 Wt 106.1 kg (234 lb) BMI 41.45 kg/m2 Last 4 Encounter Wt Readings: Date: Wt: 09/25/2017 106.1 kg (234 lb) 09/18/2017 105.6 kg (232 lb 12.8 oz) 09/03/2017 104.3 kg (230 lb) 08/12/2017 106.6 kg (235 lb) PHYSICAL EXAMINATION: General appearance: Well appearing, alert, in no acute distress, well-hydrated, well nourished. Skin: Skin color, texture, turgor normal, no suspicious rashes or lesions Head: Normocephalic, no masses, lesions, tenderness or abnormalities Lungs: Lungs clear to auscultation. No wheezing, rhonchi, rales Heart: RRR without murmur, gallop, or rubs. No ectopy Abdomen: Normal abdominal exam, Abdomen soft, non-tender. Bowel sounds normal. No masses, organomegaly Extremities: No deformities, edema, skin discoloration, clubbing or cyanosis. Good capillary refill. Knee unchanged. No redness or warmth. ASSESSMENT/PLAN: 1. Acute pain of right knee - ICD9: 719.46, ICD10: M25.561 (primary diagnosis) - again, needs to see ortho for follow up. - CONSULT TO ORTHOPAEDICS 2. Chronic renal insufficiency, stage 3 (moderate) - ICD9: 585.3, ICD10: N18.3 - recheck labs. Can stop hctz. She is concerned about diastolic pressures. Recheck bp in two weeks. - BASIC METABOLIC PNL - HGB A1C 3. 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thy, unspecified skilled nursing insulin use status (HCC) - ICD9: 250.40, 583.81, ICD10: E11.21 - check labs. 4. Neuropathy (HCC) - ICD9: 355.9, ICD10: G62.9 - stable. Philip Todd MD . CNOV Observed: 09/25/2017 Status: COMPLETED Source: [place] 9:40 AM [facility] REPOSITORY Office Visit (FAMPWS) DEBBIE KENNEY ([id number]) 1935 F Date Time Provider Department 09/25/17 9:40 AM PHILIP TODDWS During your visit today, we recorded the following information about you: Temperature Pulse Respiration Blood pressure 97.7 degrees 64/minute 16/minute 124/56 Weight 106.1 kg Philip Todd MD 09/25/2017 5:03 PM Signed Patient presents with: Knee Pain: right Recheck: OV 09/03 HPI: Patient presents today for office visit for follow up. Saw Dr. Nunez who attempted an aspiration with minimal results. Did inject with steroids. She does have oa of the knee. She had mild relief for a day. She was told to return to see Dr. Nunez if not any better. Using tylenol. Recommended she continue icing. She does not want any pain meds Component Latest Ref Rng ANDamp; Units 09/03/2017 Glucose 74 - 99 mg/dL 136 (H) BUN 7 - 21 mg/dL 26 (H) Creatinine 0.58 - 0.96 mg/dL 1.16 (H) Sodium 136 - 144 mmol/L 136 Potassium 3.7 - 5.1 mmol/L 4.1 Chloride 97 - 105 mmol/L 99 CO2 22 - 30 mmol/L 20 (L) Anion Gap 9 - 18 mmol/L 17 Calcium 8.5 - 10.2 mg/dL 10.0 eGFR- 54 eGFR-All Other Races . 45 BRADLEY Negative Negative BRADLEY Titer Negative Negative BRADLEY Pattern Not applicable for negative result. Magnesium 1.7 - 2.3 mg/dL 1.8 CK 42 - 196 U/L 42 WSR 0 - 20 mm/hr 20 CRP ANDlt;0.9 mg/dL 1.6 (H) Rheumatoid Factor ANDlt;16 IU/mL ANDlt;10 Uric Acid 2.5 - 6.6 mg/dL 6.7 (H) Vitamin D 25 Hydroxy 31.0 - 80.0 ng/mL 33.7 MEDICATIONS: Current Outpatient Prescriptions: COMPOUNDED PRESCRIPTION Primal Force for joints COMPOUNDED PRESCRIPTION Artery Cleanse COMPOUNDED PRESCRIPTION Cardio Jackson Healthy heart/arteries lisinopril (ZESTRIL, PRINIVIL) 10 mg tablet Take 1 tablet by mouth once daily. amLODIPine (NORVASC) 5 mg tablet Take 1 tablet by mouth once daily. hydroCHLOROthiazide (HYDRODIURIL, ESIDRIX) 25 mg tablet Take 0.5 tablets by mouth once daily. OMEGA 0-GYA-VFV-OTHER OM3-D3 ORAL Take by mouth. aspirin, enteric coated (ASPIRIN, ENTERIC COATED) 81 mg EC tablet Take 81 mg by mouth every other day. nateglinide (STARLIX) 60 mg tablet Take 1 tablet by mouth three times daily before meals. Cinnamon Bark (CINNAMON) 500 mg ORAL Cap Take 1 capsule by mouth once daily. ascorbic acid (VITAMIN C) 500 mg ORAL tablet Take 1 tablet by mouth once daily. calcium-vitamin D 500 mg(1,250mg) -200 unit ORAL per tablet Take one(1) tablet daily. cimetidine(TAGAMET 300 MG TAB) Take one(1) tablet daily. XALATAN 0.005 % EYE DROPS one drop both eyes q hs No current facility-administered medications for this visit. 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 - Benign neoplasm of colon - Diverticulosis of colon (without mention of hemorrhage) Diverticulosis - Glaucoma - HTN (hypertension) - Hyperlipidemia - Left carotid stenosis checking yearly - Lumbago - Macular pucker of both eyes stable - Other specified glaucoma - Posterior capsule opacification OD - Pseudophakia of both eyes stable - Ptosis of eyelid OU-stable - Snoring - Type II or unspecified type diabetes mellitus without mention of complication, not stated as uncontrolled PAST SURGICAL HISTORY Procedure Laterality Date - CATARACT EXTRACTION HX Bilateral 12 - COLONOSCOP W/ OR W/O [facility] SPEC 03/26/02 Colonoscopy - COLONOSCOP W/ OR W/O [facility] SPEC 05/18/2008 Colonoscopy - COLONOSCOP W/ OR W/O [facility] SPEC 01/13/14 Colonoscopy - REMOVAL GALLBLADDER 97 Cholecystectomy - REPAIR ING HERNIA,5+Y/O,REDUCIBL Hernia repair, inguinal - VAGINAL HYSTERECTOMY 77 Hysterectomy, vaginal FAMILY HISTORY Problem Relation Age of Onset - Heart Mother pacemaker - Hypertension Mother - Diabetes Sister - Colon Cancer Brother - Heart Brother mi - Diabetes Brother - Diabetes Father - Heart Father - Cancer Brother lung - Cancer Brother pancrease Social History Marital status: Spouse name: Years of education: Number of children: Social History Main Topics Smoking status: Never Smoker Smokeless status: Never Used Alcohol use: No Drug use: No Reviewed current medications, allergies, past medical history, surgical history, family history and social history today. REVIEW OF SYSTEMS All other reviewed and negative other than HPI. HEALTH MAINTENANCE: Reviewed health maintenance issues today and recommended the following in detail. TETANUS due on 11/18/2001 DILATED RETINAL EXAM did on friday HBA1C due on 10/09/2017 VITALS: BP 124/56 Pulse 64 Temp 36.5 ?C (97.7 ?F) Resp 16 Wt 106.1 kg (234 lb) BMI 41.45 kg/m2 Last 4 Encounter Wt Readings: Date: Wt: 09/25/2017 106.1 kg (234 lb) 09/18/2017 105.6 kg (232 lb 12.8 oz) 09/03/2017 104.3 kg (230 lb) 08/12/2017 106.6 kg (235 lb) PHYSICAL EXAMINATION: General appearance: Well appearing, alert, in no acute distress, well-hydrated, well nourished. Skin: Skin color, texture, turgor normal, no suspicious rashes or lesions Head: Normocephalic, no masses, lesions, tenderness or abnormalities Lungs: Lungs clear to auscultation. No wheezing, rhonchi, rales Heart: RRR without murmur, gallop, or rubs. No ectopy Abdomen: Normal abdominal exam, Abdomen soft, non-tender. Bowel sounds normal. No masses, organomegaly Extremities: No deformities, edema, skin discoloration, clubbing or cyanosis. Good capillary refill. Knee unchanged. No redness or warmth. ASSESSMENT/PLAN: 1. Acute pain of right knee - ICD9: 719.46, ICD10: M25.561 (primary diagnosis) - again, needs to see ortho for follow up. - CONSULT TO ORTHOPAEDICS 2. Chronic renal insufficiency, stage 3 (moderate) - ICD9: 585.3, ICD10: N18.3 - recheck labs. Can stop hctz. She is concerned about diastolic pressures. Recheck bp in two weeks. - BASIC METABOLIC PNL - HGB A1C 3. 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 4. Neuropathy ([facility]) - ICD9: 355.9, ICD10: G62.9 - stable. Philip Todd MD . Philip Todd MD 09/25/2017 10:23 AM Signed See ortho again. Stop hctz bp check and labs in two weeks. Referring Provider: SELF [[id number]] Allergies As of Date: 09/25/2017 Noted Allergy Reaction DEMEROL (MEPERIDINE (PF)) 07/11/2005 1 - Mental Status Change LEVAQUIN (LEVOFLOXACIN) 08/11/2014 8 - GI Upset Date Reviewed: 08/12/2017 Reviewed by: Julianan Carey LPN - Fully Assessed Reason for Visit: Knee Pain [132] Cmt: right Recheck [92] Cmt: OV 09/03 Primary Visit Diagnosis:Acute pain of right knee [M25.561] Other Visit Diagnoses:Chronic renal insufficiency, stage 3 (moderate) [N18.3] 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thy, unspecified skilled nursing insulin use status (HCC) [E11.21] Neuropathy ([facility]) [G62.9] Order(s):CONSULT TO ORTHOPAEDICS [9026] Order #: [id number]: 1 BASIC METABOLIC PNL [SQBMP] Order #: [id number] FUTURE HGB A1C [ETYYS8P] Order #: [id number] FUTURE Prescriptions as of 09/25/2017 Sig: COMPOUNDED PRESCRIPTION Primal Force for joints COMPOUNDED PRESCRIPTION Artery Cleanse COMPOUNDED PRESCRIPTION Cardio Jackson Healthy heart* LISINOPRIL 10 MG TABLET Take 1 tablet by mouth once d* AMLODIPINE 5 MG TABLET Take 1 tablet by mouth once d* OMEGA 1-EFK-VQY-OTHER OM3-D3 * Take by mouth. ASPIRIN 81 MG TABLET,DELAYED * Take 81 mg by mouth every oth* NATEGLINIDE 60 MG TABLET Take 1 tablet by mouth three * CINNAMON BARK 500 MG CAPSULE Take 1 capsule by mouth once * ASCORBIC ACID (VITAMIN C) 500* Take 1 tablet by mouth once d* CALCIUM CARBONATE 500 MG (1,2* Take one(1) tablet daily. TAGAMET 300 MG TABLET Take one(1) tablet daily. XALATAN 0.005 % EYE DROPS one drop both eyes q hs Problem List As Of Date 09/25/2017 Noted Resolved DERMATOPHYTOSIS OF NAIL [B35.1] INVALID FOR* LUMBAGO [M54.5] PERS HX COLONIC POLYPS [Z86.010] More... DIVERTICULOSIS OF COLON W/O BLEED [K57.30] More... Unspecified hemorrhoids without mention of comp* 03/14/2016 More... 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] INVALID FOR* Mixed hyperlipidemia [E78.2] INVALID FOR* Impaired fasting glucose [R73.01] INVALID FOR*11/22/2014 Onychia and paronychia of toe [L03.039] INVALID FOR*09/26/2016 Ingrowing nail [L60.0] INVALID FOR*09/26/2016 Benign paroxysmal positional vertigo [H81.10] INVALID FOR* Dizziness [R42] INVALID FOR*09/26/2016 Neuropathy [G62.9] INVALID FOR* Diabetes mellitus (HCC) [E11.9] INVALID FOR*02/08/2014 Family history of colon cancer [Z80.0] INVALID FOR* Diabetes mellitus (HCC) [E11.9] INVALID FOR* Carotid arterial disease (HCC) [I77.9] INVALID FOR* 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] INVALID FOR* Pain in right hip [M25.551] INVALID FOR* 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 Stop hctz bp check and labs in two weeks. Medications Discontinued During This Encounter hydroCHLOROthiazide (HYDRODIURIL, ES* 90 t* 1 08/12/2017 09/25/2017 Route: ORAL Sig: Take 0.5 tablets by mouth once daily. Disc: Reason for discontinue is not on file. Disposition: Return in about 3 months (around 12/26/2017). Follow-up and Disposition History Recorded Encounter Status:Closed by PHILIP TODD MD on 09/25/17 PROGRESS Observed: 09/18/2017 Status: COMPLETED Source: [place] 5:36 PM [facility] REPOSITORY HNO ID: [id number] Author: Anthony Nunez Service: (none) Author Type: Physician Type: Progress Notes Filed: 09/18/2017 5:43 PM Note Text: Anthony Nunez MD Department of Orthopaedics Orthopaedics [address] [facility] [address] Dept: [phone] Dept September 18, 2017 CHIEF COMPLAINT: New Patient (Right knee pain, ref- dk Todd [facility] 08/27/17 ) HPI: Ms. Debbie Kenney is a 82 year old female who presents with 10 out of 10 pain in the right knee. Burning and cramping feeling all across the front of the knee. This is been bothering her for a couple months though got painful enough that she had to go to the emergency room earlier in August. She took some prednisone which only helped minimally. Difficulty with ambulating. Took some pain medication but feels like it made her sick. She's been icing and heating and trying to get by. ASSESSMENT: M25.561 Acute pain of right knee (primary encounter diagnosis) M17.11 Primary osteoarthritis of right knee PLAN: based on her exam and imaging findings, I suspect she just has for some reason some rather significant inflammation in the knee. My recommendation is for an attempted aspirate in case I may find some evidence of crystalline arthropathy, otherwise providing her for a cortisone injection. FOLLOW UP INSTRUCTIONS: as needed Ms. Debbie Kenney was advised as to contrast therapies and/or to take analgesics/anti-inflammatories as needed and all contraindications were reviewed. OBJECTIVE: Ms. Debbie Kenney is a pleasant 82 year old in no apparent distress. Gen:BP 119/59 Pulse 70 Ht 5' 3 (1.60m) Wt 232 lb 12.8 oz (105.6kg) BMI 41.25 kg/(m2). nl development, morbidly obese, no deformities ENT: Normocephalic, normal hearing, moist mucosa CV: Pulses:DP/PT= 2+ and symmetric, capillary refill < 2 secs, no peripheral edema/varicosities Skin: no rash, bruising or lesions. Good turgor. Psych: cooperative and appropriate, alert and oriented x 3, good mood and affect. Musculoskeletal: Patient walks with antalgia, normal station. Hip motion without pain. Knee without obvious effusion. Patella tracks normally. There is no patellar crepitance. No pain along the medial or lateral facetsdirectly, however global tenderness from medial to lateral with soft tissue tenderness throughout the knee. Range of motion 10?120 degrees. positive medial and lateral joint line pain on palpation. Ligamentous exam stable on varus and valgus stress testing at 0 and 30 degrees. Phani's examination is not able to perform due to guarding. Posterior drawer is negative. McMurrays, unable to perform secondary to pain. Extremity is warm and well perfused. Sensation is grossly intact to light touch, subjectively. procedure note: The risk, benefits and alternatives of injection and no injection therapy were discussed. The patient consented for an injection. Time out was conducted. The injection site was prepped with a Chlorhexadine swab. The right Superolateral joint was injected with 1% lidocaine for a total of 5 cc for a local anesthetic. Subsequently, an 18-gauge needle was injected and an aspiration was performed without any significant fluid and the amount of fluid that was retrieved appear to straw-colored and less than 1 cc.subsequently, the knee was injected with 1 cc (6 mg) Celestone, 5 cc Marcaine 0.5% . The injection site was then dressed with a bandaid. The patient tolerated the injection well. The patient was instructed to call the office if any adverse local effects occurred or any if any questions or concerns arise. Anthony Nunez MD IMAGIN views of the right knee from an outside facility show mild effusion, mild medial compartment osteoarthritis and narrowing. 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 - Benign neoplasm of colon - Diverticulosis of colon (without mention of hemorrhage) Diverticulosis - Glaucoma - HTN (hypertension) - Hyperlipidemia - Left carotid stenosis checking yearly - Lumbago - Macular pucker of both eyes stable - Other specified glaucoma - Posterior capsule opacification OD - Pseudophakia of both eyes stable - Ptosis of eyelid OU-stable - Snoring - Type II or unspecified type diabetes mellitus without mention of complication, not stated as uncontrolled Past Surgical History: PAST SURGICAL HISTORY Procedure Laterality Date - CATARACT EXTRACTION HX Bilateral 12 - COLONOSCOP W/ OR W/O [facility] SPEC 03/26/02 Colonoscopy - COLONOSCOP W/ OR W/O [facility] SPEC 05/18/2008 Colonoscopy - COLONOSCOP W/ OR W/O [facility] SPEC 01/13/14 Colonoscopy - REMOVAL GALLBLADDER 97 Cholecystectomy - REPAIR ING HERNIA,5+Y/O,REDUCIBL Hernia repair, inguinal - VAGINAL HYSTERECTOMY 77 Hysterectomy, vaginal Family History: FAMILY HISTORY Problem Relation Age of Onset - Heart Mother pacemaker - Hypertension Mother - Diabetes Sister - Colon Cancer Brother - Heart Brother mi - Diabetes Brother - Diabetes Father - Heart Father - Cancer Brother lung - Cancer Brother pancrease Social History:Social History Marital status: Spouse name: Years of education: Number of children: Social History Main Topics Smoking status: Never Smoker Smokeless status: Never Used Alcohol use: No Drug use: No Medications: Current Outpatient Prescriptions: lisinopril (ZESTRIL, PRINIVIL) 10 mg tablet Take 1 tablet by mouth once daily. amLODIPine (NORVASC) 5 mg tablet Take 1 tablet by mouth once daily. hydroCHLOROthiazide (HYDRODIURIL, ESIDRIX) 25 mg tablet Take 0.5 tablets by mouth once daily. OMEGA 2-ZMX-KSZ-OTHER OM3-D3 ORAL Take by mouth. aspirin, enteric coated (ASPIRIN, ENTERIC COATED) 81 mg EC tablet Take 81 mg by mouth every other day. nateglinide (STARLIX) 60 mg tablet Take 1 tablet by mouth three times daily before meals. Cinnamon Bark (CINNAMON) 500 mg ORAL Cap Take 1 capsule by mouth once daily. ascorbic acid (VITAMIN C) 500 mg ORAL tablet Take 1 tablet by mouth once daily. calcium-vitamin D 500 mg(1,250mg) -200 unit ORAL per tablet Take one(1) tablet daily. cimetidine(TAGAMET 300 MG TAB) Take one(1) tablet daily. XALATAN 0.005 % EYE DROPS one drop both eyes q hs No current facility-administered medications for this visit. Allergies: Demerol [Meperidine (Pf)]; Levaquin [Levofloxacin] ROS: General (negative for fatigue, malaise, weight loss/gain) HEENT (negative for headache, earache, recent vision changes, sinus pain, sore throat) Respiratory (no recent shortness of breath, hemoptysis) CV (negative for chest tightness, palpitations) Musculoskeletal (see HPI) Psych (no depression, anxiety) REFERRING PHYSICIAN: Ms. Debbie Kenney was referred to [facility] for consultation by the following physician. This consultation note will be sent to the following physician by either mail or electronic medical record. Philip Todd MD [address] [facility] [id number] This note was partially generated using [employer] voice recognition system, and there may be some incorrect words, spellings, and punctuation that were not noted in checking the note before saving. Anthony Nunez MD PROGRESS Observed: 09/18/2017 Status: COMPLETED Source: [place] 11:00 AM [facility] REPOSITORY [facility] ID: [id number] Author: Laverne (Rn) SHAWN Gooden Service: (none) Author Type: Registered Nurse Type: Progress Notes Filed: 09/18/2017 5:43 PM Note Text: AMB ROOMING INTAKE FLOWSHEET DATA Risk Screening Do you have concerns about personal safety or safety in the home?: No Pain Pain Score: 10/10 Pain Location: Knee-Right Description: Burning, Cramping Duration Amount of Time: 2 Duration Units: Months Frequency: Continuous Intervention: Cold, Heat, Medication (completed prednisone, per patient 2 norco pills) Patient presents with: New Patient: Right knee pain, ref- Peyton, xray [facility] 08/27/17 patient states in jul she started with lower back pain and left hip pain. She went to the ER on 08/27/17 for right knee pain, she rates her pain 10/10 in right knee, pain is located medial side of knee and radiates down into leg. In Dr. Todd notes he gave her prednisone, which she completed and norco. There is no record of norco in the medical records. Patient states she took 2 pain pills that made her sick. She has not taken any since. Patient did use heat and ice in the beginning. Laverne Gooden RN CNOV Observed: 09/18/2017 Status: COMPLETED Source: [place] 10:40 AM [facility] REPOSITORY Office Visit (ORTHWS) DEBBIE KENNEY ([id number]) 1935 F Date Time Provider Department 09/18/17 10:40 AM ANTHONY NUNEZ During your visit today, we recorded the following information about you: Pulse Blood pressure Weight Height 70/minute 119/59 105.6 kg 1.6 m Laverne Gooden RN, RN 09/18/2017 5:43 PM Signed AMB ROOMING INTAKE FLOWSHEET DATA Risk Screening Do you have concerns about personal safety or safety in the home?: No Pain Pain Score: 10/10 Pain Location: Knee-Right Description: Burning, Cramping Duration Amount of Time: 2 Duration Units: Months Frequency: Continuous Intervention: Cold, Heat, Medication (completed prednisone, per patient 2 norco pills) Patient presents with: New Patient: Right knee pain, ref- Peyton, xray [facility] 08/27/17 patient states in jul she started with lower back pain and left hip pain. She went to the ER on 08/27/17 for right knee pain, she rates her pain 10/10 in right knee, pain is located medial side of knee and radiates down into leg. In Dr. Todd notes he gave her prednisone, which she completed and norco. There is no record of norco in the medical records. Patient states she took 2 pain pills that made her sick. She has not taken any since. Patient did use heat and ice in the beginning. SHAWN Cunha MD 09/18/2017 5:43 PM Signed Anthony Nunez MD Department of Orthopaedics Orthopaedics [address] [facility] [address] Dept: [phone] Dept September 18, 2017 CHIEF COMPLAINT: New Patient (Right knee pain, ref- Peyton, xray [facility] 08/27/17 ) HPI: Ms. Debbie Kenney is a 82 year old female who presents with 10 out of 10 pain in the right knee. Burning and cramping feeling all across the front of the knee. This is been bothering her for a couple months though got painful enough that she had to go to the emergency room earlier in August. She took some prednisone which only helped minimally. Difficulty with ambulating. Took some pain medication but feels like it made her sick. She's been icing and heating and trying to get by. ASSESSMENT: M25.561 Acute pain of right knee (primary encounter diagnosis) M17.11 Primary osteoarthritis of right knee PLAN: based on her exam and imaging findings, I suspect she just has for some reason some rather significant inflammation in the knee. My recommendation is for an attempted aspirate in case I may find some evidence of crystalline arthropathy, otherwise providing her for a cortisone injection. FOLLOW UP INSTRUCTIONS: as needed Ms. Debbie Kenney was advised as to contrast therapies and/or to take analgesics/anti-inflammatories as needed and all contraindications were reviewed. OBJECTIVE: Ms. Debbie Kenney is a pleasant 82 year old in no apparent distress. Gen:BP 119/59 Pulse 70 Ht 5' 3ANDquot; (1.60m) Wt 232 lb 12.8 oz (105.6kg) BMI 41.25 kg/(m2). nl development, morbidly obese, no deformities ENT: Normocephalic, normal hearing, moist mucosa CV: Pulses:DP/PT= 2+ and symmetric, capillary refill ANDlt; 2 secs, no peripheral edema/varicosities Skin: no rash, bruising or lesions. Good turgor. Psych: cooperative and appropriate, alert and oriented x 3, good mood and affect. Musculoskeletal: Patient walks with antalgia, normal station. Hip motion without pain. Knee without obvious effusion. Patella tracks normally. There is no patellar crepitance. No pain along the medial or lateral facetsdirectly, however global tenderness from medial to lateral with soft tissue tenderness throughout the knee. Range of motion 10?120 degrees. positive medial and lateral joint line pain on palpation. Ligamentous exam stable on varus and valgus stress testing at 0 and 30 degrees. Phani's examination is not able to perform due to guarding. Posterior drawer is negative. McMurrays, unable to perform secondary to pain. Extremity is warm and well perfused. Sensation is grossly intact to light touch, subjectively. procedure note: The risk, benefits and alternatives of injection and no injection therapy were discussed. The patient consented for an injection. Time out was conducted. The injection site was prepped with a Chlorhexadine swab. The right Superolateral joint was injected with 1% lidocaine for a total of 5 cc for a local anesthetic. Subsequently, an 18-gauge needle was injected and an aspiration was performed without any significant fluid and the amount of fluid that was retrieved appear to straw-colored and less than 1 cc.subsequently, the knee was injected with 1 cc (6 mg) Celestone, 5 cc Marcaine 0.5% . The injection site was then dressed with a bandaid. The patient tolerated the injection well. The patient was instructed to call the office if any adverse local effects occurred or any if any questions or concerns arise. Anthony Nunez MD IMAGIN views of the right knee from an outside facility show mild effusion, mild medial compartment osteoarthritis and narrowing. 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 - Benign neoplasm of colon - Diverticulosis of colon (without mention of hemorrhage) Diverticulosis - Glaucoma - HTN (hypertension) - Hyperlipidemia - Left carotid stenosis checking yearly - Lumbago - Macular pucker of both eyes stable - Other specified glaucoma - Posterior capsule opacification OD - Pseudophakia of both eyes stable - Ptosis of eyelid OU-stable - Snoring - Type II or unspecified type diabetes mellitus without mention of complication, not stated as uncontrolled Past Surgical History: PAST SURGICAL HISTORY Procedure Laterality Date - CATARACT EXTRACTION HX Bilateral 12 - COLONOSCOP W/ OR W/O [facility] SPEC 03/26/02 Colonoscopy - COLONOSCOP W/ OR W/O [facility] SPEC 05/18/2008 Colonoscopy - COLONOSCOP W/ OR W/O [facility] SPEC 01/13/14 Colonoscopy - REMOVAL GALLBLADDER 97 Cholecystectomy - REPAIR ING HERNIA,5+Y/O,REDUCIBL Hernia repair, inguinal - VAGINAL HYSTERECTOMY 78 Hysterectomy, vaginal Family History: FAMILY HISTORY Problem Relation Age of Onset - Heart Mother pacemaker - Hypertension Mother - Diabetes Sister - Colon Cancer Brother - Heart Brother mi - Diabetes Brother - Diabetes Father - Heart Father - Cancer Brother lung - Cancer Brother pancrease Social History:Social History Marital status: Spouse name: Years of education: Number of children: Social History Main Topics Smoking status: Never Smoker Smokeless status: Never Used Alcohol use: No Drug use: No Medications: Current Outpatient Prescriptions: lisinopril (ZESTRIL, PRINIVIL) 10 mg tablet Take 1 tablet by mouth once daily. amLODIPine (NORVASC) 5 mg tablet Take 1 tablet by mouth once daily. hydroCHLOROthiazide (HYDRODIURIL, ESIDRIX) 25 mg tablet Take 0.5 tablets by mouth once daily. OMEGA 8-EGD-XZO-OTHER OM3-D3 ORAL Take by mouth. aspirin, enteric coated (ASPIRIN, ENTERIC COATED) 81 mg EC tablet Take 81 mg by mouth every other day. nateglinide (STARLIX) 60 mg tablet Take 1 tablet by mouth three times daily before meals. Cinnamon Bark (CINNAMON) 500 mg ORAL Cap Take 1 capsule by mouth once daily. ascorbic acid (VITAMIN C) 500 mg ORAL tablet Take 1 tablet by mouth once daily. calcium-vitamin D 500 mg(1,250mg) -200 unit ORAL per tablet Take one(1) tablet daily. cimetidine(TAGAMET 300 MG TAB) Take one(1) tablet daily. XALATAN 0.005 % EYE DROPS one drop both eyes q hs No current facility-administered medications for this visit. Allergies: Demerol [Meperidine (Pf)]; Levaquin [Levofloxacin] ROS: General (negative for fatigue, malaise, weight loss/gain) HEENT (negative for headache, earache, recent vision changes, sinus pain, sore throat) Respiratory (no recent shortness of breath, hemoptysis) CV (negative for chest tightness, palpitations) Musculoskeletal (see HPI) Psych (no depression, anxiety) REFERRING PHYSICIAN: Ms. Debbie Kenney was referred to me for consultation by the following physician. This consultation note will be sent to the following physician by either mail or electronic medical record. Philip Todd MD [address] [facility] [id number] This note was partially generated using [employer] voice recognition system, and there may be some incorrect words, spellings, and punctuation that were not noted in checking the note before saving. Anthony Nunez MD Referring Provider: PHILIP TODD [[id number]] Allergies As of Date: 09/18/2017 Noted Allergy Reaction DEMEROL (MEPERIDINE (PF)) 07/11/2005 1 - Mental Status Change LEVAQUIN (LEVOFLOXACIN) 08/11/2014 8 - GI Upset Date Reviewed: 08/12/2017 Reviewed by: Julianna Carey LPN - Fully Assessed Reason for Visit: New Patient [172] Cmt: Right knee pain, ref- dk Todd [facility] 08/27/17 Primary Visit Diagnosis:Acute pain of right knee [M25.561] Other Visit Diagnosis:Primary osteoarthritis of right knee [M17.11] Prescriptions as of 09/18/2017 Sig: LISINOPRIL 10 MG TABLET Take 1 tablet by mouth once d* AMLODIPINE 5 MG TABLET Take 1 tablet by mouth once d* HYDROCHLOROTHIAZIDE 25 MG TAB* Take 0.5 tablets by mouth onc* OMEGA 7-IGP-LFS-OTHER OM3-D3 * Take by mouth. ASPIRIN 81 MG TABLET,DELAYED * Take 81 mg by mouth every oth* NATEGLINIDE 60 MG TABLET Take 1 tablet by mouth three * CINNAMON BARK 500 MG CAPSULE Take 1 capsule by mouth once * ASCORBIC ACID (VITAMIN C) 500* Take 1 tablet by mouth once d* CALCIUM CARBONATE 500 MG (1,2* Take one(1) tablet daily. TAGAMET 300 MG TABLET Take one(1) tablet daily. XALATAN 0.005 % EYE DROPS one drop both eyes q hs Problem List As Of Date 09/18/2017 Noted Resolved DERMATOPHYTOSIS OF NAIL [B35.1] INVALID FOR* LUMBAGO [M54.5] PERS HX COLONIC POLYPS [Z86.010] More... DIVERTICULOSIS OF COLON W/O BLEED [K57.30] More... Unspecified hemorrhoids without mention of comp* 03/14/2016 More... 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] INVALID FOR* Mixed hyperlipidemia [E78.2] INVALID FOR* Impaired fasting glucose [R73.01] INVALID FOR*11/22/2014 Onychia and paronychia of toe [L03.039] INVALID FOR*09/26/2016 Ingrowing nail [L60.0] INVALID FOR*09/26/2016 Benign paroxysmal positional vertigo [H81.10] INVALID FOR* Dizziness [R42] INVALID FOR*09/26/2016 Neuropathy [G62.9] INVALID FOR* Diabetes mellitus (HCC) [E11.9] INVALID FOR*02/08/2014 Family history of colon cancer [Z80.0] INVALID FOR* Diabetes mellitus (HCC) [E11.9] INVALID FOR* Carotid arterial disease (HCC) [I77.9] INVALID FOR* 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] INVALID FOR* Pain in right hip [M25.551] INVALID FOR* 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] INVALID FOR* Pain in right knee [M25.561] INVALID FOR* Abnormal mammogram [R92.8] INVALID FOR* Candidiasis of skin and nail [B37.2] INVALID FOR*04/17/2017 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 The ADA defines fasting as no caloric intake for at least 8 hours. Fas ting plasma glucose results between 100 to 125 mg/dL indicate increased risk for diabetes (prediabetes). Fasting plasma glucose results greater than or equal to 126 mg/dL meet the criteria for diagnosis of diabetes. In the absence of unequivocal hyperglycemia, results should be confirmed by repeat testing. In a patient with classic symptoms of hyperglycemia or hyperglycemic crisis, random plasma glucose results greater than or equal to 200 mg/dL meet the criteria for diagnosis of diabetes. Reference: Standards of Medical Care in Diabetes 2016, [place] [employer]. Diabetes Care. 2016.39(Suppl 1). LAB BUN 7-21 mg/dL BUN High 26 LAB CRET 0.58-0.96 mg/dL Creatinine High 1.16 LAB NA 136-144 mmol/L Sodium 136 LAB K 3.7-5.1 mmol/L Potassium 4.1 LAB CL 97-105 mmol/L Chloride 99 LAB CO2 22-30 mmol/L Low CO2 20 LAB AGAP 9-18 mmol/L Anion Gap 17 LAB CA 8.5-10.2 mg/dL Calcium, Total 10.0 LAB GFRAA eGFR- Amer. 54 LAB GFRNAA . eGFR-All Other Races 45 Result Comment: eGFR (Estimated GFR) Units of measure: mL/min/1.73 meters squared eGFR is derived from the reexpressed MDRD Study equation using the following parameters: serum creatinine, age, gender and race. The creatinine assay has been calibrated to be traceable to IDMS. An eGFR <60 mL/min/1.73m2 for >3 months is consistent with chronic kidney disease. Refer to KDOQI guidelines for clinical interpretation. In patients with unstable renal function, e.g. those with acute kidney injury, the eGFR may not accurately reflect actual GFR. Performed By: #### BMP, CK, CRP, MG1, RF, URIC, WSR, ANAIFS #### [facility] [employer] [address] [place], [place] [address] CK Collected: 09/03/2017 Status: F Source: [facility] 1:28 PM MAIN CAMPUS REPOSITORY TYPE CODE TESTS RESULT OUT OF RANGE REFERENCE UNITS LAB CK 42-196 U/L CK 42 Result Comment: Please note the updated, gender-specific reference range for this test (effective 07/04/2016). Performed By: #### BMP, CK, CRP, MG1, RF, URIC, WSR, ANAIFS #### [facility] [employer] [address] [place] [address] C-REACTIVE PROTEIN Collected: 09/03/2017 Status: F Source: [place] 1: PM [facility] REPOSITORY TYPE CODE TESTS RESULT OUT OF REFERENCE UNITS RANGE LAB CRP <0.9 mg/dL High C-Reactive 1.6 Protein Performed By: #### BMP, CK, CRP, MG1, RF, URIC, WSR, ANAIFS #### [place] [address] MAGNESIUM Collected: 09/03/2017 Status: F Source: [place] 1: PM [facility] REPOSITORY TYPE CODE TESTS RESULT OUT OF REFERENCE UNITS RANGE LAB MG 1.7-2.3 mg/dL Magnesium 1.8 Performed By: #### BMP, CK, CRP, MG1, RF, URIC, WSR, ANAIFS #### [place] [phone] RHEUMATOID FACTOR Collected: 09/03/2017 Status: F Source: [place] 1:[address] [place] [address] REPOSITORY TYPE CODE TESTS RESULT OUT OF REFERENCE UNITS RANGE LAB RF <16 IU/mL Rheumatoid <10 Factor Performed By: #### BMP, CK, CRP, MG1, RF, URIC, WSR, ANAIFS #### [place] [address] URIC ACID Collected: 09/03/2017 Status: F Source: [place] 1:[address] [place] [address] REPOSITORY TYPE CODE TESTS RESULT OUT OF RANGE REFERENCE UNITS LAB URIC 2.5-6.6 mg/dL High Uric Acid 6.7 Performed By: #### BMP, CK, CRP, MG1, RF, URIC, WSR, ANAIFS #### [place] [address] SED RATE WESTERGREN Collected: 09/03/2017 Status: F Source: [place] 1:[address] [place] [address] REPOSITORY TYPE CODE TESTS RESULT OUT OF REFERENCE UNITS RANGE LAB WSR 0-20 mm/hr Sed Rate Westergren 20 Performed By: #### BMP, CK, CRP, MG1, RF, URIC, WSR, ANAIFS #### [facility] [employer] [address] [place], [place] [address] BRADLEY BY IFA Collected: 09/03/2017 Status: F Source: [place] 1:28 PM [facility] REPOSITORY TYPE CODE TESTS RESULT OUT OF REFERENCE UNITS RANGE LAB ANASC Negative BRADLEY Negative Result Comment: Normal range : negative at <1:80 serum dilution. Approximately 6% of patients with connective tissue diseases with low positive EIA values are negative by IFA. Recommend follow-up with specific antinuclear antibodies if clinically indicated. LAB LIDA Negative Negative BRADLEY Titer Result Comment: Normal range : negative at <1:80 serum dilution. LAB ANAP BRADLEY Not applicable Pattern for negative result. Performed By: #### BMP, CK, CRP, MG1, RF, URIC, WSR, ANAIFS #### [facility] [employer] [address] [place], [place] [address] VITAMIN D 25 HYDROXY Collected: 09/03/2017 Status: F Source: [place] 1:28 PM [facility] REPOSITORY TYPE CODE TESTS RESULT OUT OF REFERENCE UNITS RANGE LAB VITD 31.0-80.0 ng/mL Vitamin D 25 33.7 Hydroxy Result Comment: Classification of 25 [place] Vitamin D status: Insufficiency/Moderate Deficiency: < or = 30 ng/mL Sufficiency/Optimal Levels: 31 to 80 ng/mL Toxicity: > 100 ng/mL Test performed by chemiluminescent immunoassay. Performed By: #### VITD #### [facility] [employer] [address] [place], [place] [address] PROGRESS Observed: 09/03/2017 Status: COMPLETED Source: [place] 11:06 AM [facility] REPOSITORY HNO ID: [id number] Author: Philip Todd Service: (none) Author Type: Physician Type: Progress Notes Filed: 09/03/2017 3:07 PM Note Text: Patient presents with: ED Follow Up: hip, back, knee pain. [facility] HPI: Patient presents today for office visit for follow up. Nursing Notes: Omaira Corona Ma 09/03/2017 11:02 AM Signed HOSPITAL/ER FOLLOW UP: Reason for visit: hip, back, knee pain Which facility: [facility] Date of visit: 08/27/17 Diagnosis: possible gout Testing done: x-rays, labs Treatment given: prednisone, norco Current symptoms: pain in both knees, rating pain at a 4 Labs were done. Sed rate mildly up however, a uric acid was not done. Xray of knee showed knee effusion. She told Er she had left hip/back pain a few weeks ago that resolved after a few days. Then developed severe pain in her knees. Right being worse the day she went into ER. Exam showed a benign appearing knee effusion although ER physician stated her exam was limited due to discomfort. No injury. Had to use a walker and a cane. Her left knee was better. Her right knee was unbearable when she went to the ER. She is very anxious regarding her statin although as I explained to her her statin would not elevate her sed rate and give her a knee effusion. Knee is not hot or red. She is fixated on a paper she found on the internet that indicates statins can cause joint pain. MEDICATIONS: Current Outpatient Prescriptions: lisinopril (ZESTRIL, PRINIVIL) 10 mg tablet Take 1 tablet by mouth once daily. atorvastatin (LIPITOR) 10 mg tablet Take 1 tablet by mouth daily at bedtime. For cholesterol. amLODIPine (NORVASC) 5 mg tablet Take 1 tablet by mouth once daily. hydroCHLOROthiazide (HYDRODIURIL, ESIDRIX) 25 mg tablet Take 0.5 tablets by mouth once daily. OMEGA 9-JQS-VIA-OTHER OM3-D3 ORAL Take by mouth. aspirin, enteric coated (ASPIRIN, ENTERIC COATED) 81 mg EC tablet Take 81 mg by mouth every other day. nateglinide (STARLIX) 60 mg tablet Take 1 tablet by mouth three times daily before meals. Cinnamon Bark (CINNAMON) 500 mg ORAL Cap Take 1 capsule by mouth once daily. ascorbic acid (VITAMIN C) 500 mg ORAL tablet Take 1 tablet by mouth once daily. calcium-vitamin D 500 mg(1,250mg) -200 unit ORAL per tablet Take one(1) tablet daily. cimetidine(TAGAMET 300 MG TAB) Take one(1) tablet daily. XALATAN 0.005 % EYE DROPS one drop both eyes q hs No current facility-administered medications for this visit. 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 - Benign neoplasm of colon - Diverticulosis of colon (without mention of hemorrhage) Diverticulosis - Glaucoma - HTN (hypertension) - Hyperlipidemia - Left carotid stenosis checking yearly - Lumbago - Macular pucker of both eyes stable - Other specified glaucoma - Posterior capsule opacification OD - Pseudophakia of both eyes stable - Ptosis of eyelid OU-stable - Snoring - Type II or unspecified type diabetes mellitus without mention of complication, not stated as uncontrolled PAST SURGICAL HISTORY Procedure Laterality Date - CATARACT EXTRACTION HX Bilateral 12 - COLONOSCOP W/ OR W/O [facility] SPEC 03/26/02 Colonoscopy - COLONOSCOP W/ OR W/O [facility] SPEC 05/18/2008 Colonoscopy - COLONOSCOP W/ OR W/O [facility] SPEC 01/13/14 Colonoscopy - REMOVAL GALLBLADDER 97 Cholecystectomy - REPAIR ING HERNIA,5+Y/O,REDUCIBL Hernia repair, inguinal - VAGINAL HYSTERECTOMY 77 Hysterectomy, vaginal FAMILY HISTORY Problem Relation Age of Onset - Heart Mother pacemaker - Hypertension Mother - Diabetes Sister - Colon Cancer Brother - Heart Brother mi - Diabetes Brother - Diabetes Father - Heart Father - Cancer Brother lung - Cancer Brother pancrease Social History Marital status: Spouse name: Years of education: Number of children: Social History Main Topics Smoking status: Never Smoker Smokeless status: Never Used Alcohol use: No Drug use: No Reviewed current medications, allergies, past medical history, surgical history, family history and social history today. REVIEW OF SYSTEMS All other reviewed and negative other than HPI. VITALS: BP 134/68 Pulse 80 Resp 12 Wt 104.3 kg (230 lb) BMI 28.75 kg/m2 Last 4 Encounter Wt Readings: Date: Wt: 09/03/2017 104.3 kg (230 lb) 08/12/2017 106.6 kg (235 lb) 05/27/2017 108 kg (238 lb) 04/17/2017 108.9 kg (240 lb) PHYSICAL EXAMINATION: General appearance: Well appearing, alert, in no acute distress, well-hydrated, well nourished., slightly argumentative. Skin: Skin color, texture, turgor normal, no suspicious rashes or lesions Lungs: Lungs clear to auscultation. No wheezing, rhonchi, rales Heart: RRR without murmur, gallop, or rubs. No ectopy Abdomen: Normal abdominal exam, Abdomen soft, non-tender. Bowel sounds normal. No masses, organomegaly Extremities: No deformities, edema, skin discoloration, clubbing or cyanosis. Good capillary refill. KNEE:Location:right Redness: No. Warmth: No. Crepitus: No. Effusion: slight. Joint line tenderness: No. Lateral tenderness: No. Medial tenderness: No. Drawer sign negative: No. Medial or lateral laxity: No. Karen's sign: No. Somewhat limited due to knee pain. BACK: Normal curvature of spine. No spine tenderness. Straight leg test negative. Deep tendon reflexes 2+/4 at patellas. Normal lower extremity strength. ASSESSMENT/PLAN: 1. Acute pain of right knee - ICD9: 719.46, ICD10: M25.561 - gave her the go ahead to stop her statin. She refuses to take it. As I explained her cpk was normal. Her symptoms are not suggestive of a statin induced myopathy and her exam and xrays are indicative of an issue with the individual joint. - Discussed risks and benefits of new medication with the patient. Advised them to call if any side effects or questions. - call if sugars go over 300 - see ortho. Does not appear to need urgent aspiration. - watch cholesterol in the diet and follow up in one month. - reviewed xrays and labs and ER note with patient and family in detail. - SED RATE WESTERGREN - C-REACTIVE PROTEIN (CRP) - BRADLEY BY IFA SCREEN - RHEUMATOID FACTOR BL - URIC ACID BLOOD - CONSULT TO ORTHOPAEDICS - PREDNISONE 20 MG TABLET - BASIC METABOLIC PNL 2. HYPERTENSION 3. DM 4. Elevated sed rate Philip Todd MD 12 LEAD ELECTROCARDIOGRAM Observed: 08/29/2017 Status: F Source: [place] 2:23 PM [facility] REPOSITORY [facility] Cardiovascular Services [address] [place] [address] 12 Lead EKG 08/27/17 2221 MR#: [id number] Acct: [id number] Name: DEBBIE KENNEY Rep #: [id number] : 1935 82 From: Stew Henriquez MD Attending Dr: Status: DEP ER Ordering Dr: Jose Luis Gutiérrez. Date: 08/27/17 Location: ED Sex: F C Admitted: Test Reason : CP Blood Pressure : / mmHG Vent. Rate : 075 BPM Atrial Rate : 075 BPM P-R Int : 200 ms QRS Dur : 076 ms QT Int : 382 ms P-R-T Axes : 071 017 048 degrees QTc Int : 426 ms Normal sinus rhythm Normal ECG Confirmed by MARTINEZ LAINEZ, STEW ([id number]), film or videotape editor ROBIN PANG ([id number]) on 08/29/2017 2:23:39 PM Referred By: RU Confirmed By:STEW HENRIQUEZ MD 08/29/17 1423 Date Stew Henriquez MD CC: ED PHYSICIAN PROVIDER; Philip Todd MD Signed DISCHARGE INSTRUCTION Observed: 08/27/2017 Status: F Source: [place] 10:33 PM [facility] REPOSITORY [facility] Medical Records Department [address] [place] [address] Discharge Instruction 08/27/172230 MR#: [id number] Acct: [id number] Name: DEBBIE KENNEY Rep #: [id number] : 1935 82 From: Lisa Mariscal DO PCP: Philip Todd MD Status: REG ER ED Disposition - Plan for ED Patient: Chief Complaint: Lower Extremity Injury Instructions: ED Knee Pain UKO Prescriptions: Hydrocodone Bitart/Apap 5-325 [Largo 5/325] 1 - 2 tab PO Q4H PRN PRN 5 Days #20 tab PRN Reason: Pain Prednisone 10 mg PO BID #6 tab Referrals: Philip Todd MD [Primary Care Provider] - 3-5 Days What to do if you have Problems For any increased pain, shortness of breath, bleeding, nausea or vomiting, chest pain, or any unexpected problems, contact your Primary Care Provider. Call [facility] ([phone]) or report to the closest Emergency Room. Call 911 if necessary. 08/27/172232 <Electronically signed by Lisa Mariscal DO> Date Lisa Mariscal DO Cosigner Signature (If Indicated): Date CC: Philip Todd MD EMERGENCY DEPARTMENT Observed: 08/27/2017 Status: F Source: [place] SUMMARY 10:31 PM [facility] REPOSITORY [facility] Medical Records Department [address] [place] [address] Emergency Department Summary 08/27/17 2227 MR#: [id number] Acct: [id number] Name: DEBBIE KENNEY Rep #: [id number] : 1935 82 From: Lisa Mariscal DO PCP: Philip Todd MD Status: REG ER - ER Visit Summary Date of Service: 08/27/17 Chief Complaint: [Right knee pain] History of Present Illness: The patient is a 82 F [presents to the emergency department with complaint of right knee pain that started today. Patient states that 2 weeks ago she started with pain in her left hip patient states that that pain was severe but then resolved after several days. Patient subsequently developed pain in both knees that was severe and she was going to follow-up with her primary care physician today however the pain in both knees seem to resolve today and the weather was bad so she did not go to her appointment. Patient states that the pain in the left knee has left but now she has severe pain in her right knee. Patient denies any trauma. Patient denies any fever. And was on antibiotics for urinary tract infection that she finished about a week ago. Patient states that she had an upper respiratory infection about 3 weeks ago.] Physical Examination: [HEENT-PERRLA, EOMI. Cranial nerves II through XII grossly intact. TMs clear. Mucous membranes moist. No adenopathy. Cardiovascular-regular rate and rhythm without murmur or ectopy Lungs-clear to auscultation, chest wall stable without crepitus or subcu emphysema Abdomen-normoactive bowel sounds, soft, nontender, no rebound or rigidity, no peritoneal signs. Extremities-intact 4, normal range of motion, normal pulses, atraumatic] right knee-patient has small joint effusion noted. There is no erythema or warmth noted. Patient has pain with flexion extension of the knee. She is neurovascular intact distally with normal sensation normal pulses. Comment this exam difficult due to patient unable to tolerate. Test Results: [Rays of the right knee showed a small joint effusion as well as degenerative changes. CBC with differential her white count 11.2, hemoglobin 13, hematocrit 40, platelets 256. Chemistries were unremarkable. LFTs were normal. CPK was 91. Sed rate was elevated at 43.] Emergency Department Course and Treatment: [Patient was medicated with morphine and Zofran initially and she continued to complain of significant nausea and was given a dose of Phenergan. Patient started complaining of some epigastric discomfort therefore the nursing staff ordered an EKG that showed a sinus rhythm with a ventricular rate of 75 bpm with no acute ST segment changes. Patient was medicated with prednisone 20 mg p.o.] Treatment Plan: [I had a discussion with patient as I suspect her symptoms may be possibly due to gout. Patient is willing to take prednisone for 3 days and she is advised to monitor her blood sugars. Will be given a prescription for Largo for pain. Patient advised to follow-up with her primary care physician within next 3-5 days.] Disposition: [Discharged to home in stable condition] Impression: [Right knee pain-suspect gouty arthritis] This note was generated with [employer] dictation software. It may contain incorrect words, spelling, and punctuation that were not noted in review of the chart prior to signing ED Disposition - Plan for ED Patient: Chief Complaint: Lower Extremity Injury Referrals: Philip Todd MD [Primary Care Provider] - What to do if you have Problems For any increased pain, shortness of breath, bleeding, nausea or vomiting, chest pain, or any unexpected problems, contact your Primary Care Provider. Call [facility] ([phone]) or report to the closest Emergency Room. Call 911 if necessary. 08/27/17 6055 <Electronically signed by Lisa Mariscal DO> Date Lisa Mariscal DO Cosigner Signature (If Indicated): Date CC: Philip Todd MD ERYTHROCYTE SED RATE Collected: 08/27/2017 Status: F Source: [place] 9:30 PM [facility] REPOSITORY TYPE CODE TESTS RESULT OUT OF RANGE REFERENCE UNITS LAB L102.0000 0-30 mm/hr High SED RATE 43 Performed By: #### L101.9900, L100.0100 #### [facility] [place] [address], [address] CBC W/DIFF, AUTOMATED Collected: 08/27/2017 Status: F Source: [place] 9:30 PM [facility] REPOSITORY TYPE CODE TESTS RESULT OUT OF RANGE REFERENCE UNITS LAB L100.1000 4.4-11.0 K/mm3 High WBC 11.2 LAB L100.1200 4.2-5.4 M/mm3 Normal RBC 4.52 LAB L100.1300 12.0-15.0 g/dl Normal HGB 13.3 LAB L100.1400 37-47 % Normal HCT 40.3 LAB L100.1500 81-99 fL Normal MCV 89.2 LAB L100.1600 27.0-32.0 pg Normal MCH 29.4 LAB L100.1700 32-36 g/gl Normal MCHC 33.0 LAB L100.1810 11.6-14.6 % Normal RDW CV 13.7 LAB L100.1820 35.1-43.9 fl High RDW SD 44.7 LAB L100.1900 150-450 K/mm3 Normal PLT 256 LAB L100.2000 6.2-12.0 fl Normal MPV 10.1 LAB L100.2100 47-70 % Normal NEUT% 66.8 LAB L100.2200 19-41 % Normal LY% 22.9 LAB L100.2300 0-10 % Normal MONO% 8.4 LAB L100.2400 0-5 % Normal EO% 1.3 LAB L100.2500 0-1 % Normal BASO% 0.4 LAB L100.2550 0.0-0.9 % Normal IM GRAN % 0.200 Result Comment: IG% - Immature Granulocytes (promyelocytes, myelocytes and metamyelocytes) > 1% indicates that a LEFT SHIFT is Present. LAB L100.2620 2.0-7.7 X10 3/uL Normal Absolute Neut 7.5 LAB L100.2720 0.83-4.51 X10 3/ul Normal Absolute Lymph 2.56 Performed By: #### L101.9900, L100.0100 #### [facility] [address] [place], [address] CPK TOTAL, CREATINE Collected: 08/27/2017 Status: F Source: [place] 9:30 PM [facility] REPOSITORY TYPE CODE TESTS RESULT OUT OF RANGE REFERENCE UNITS LAB L501.3620 26-192 U/L Normal CPK TOTAL 91 Performed By: #### L501.3620 #### [facility] [address] [facility] [place], [address] COMPREHENSIVE METABOLIC Collected: 08/27/2017 Status: F Source: [place] PROFIL 9:30 PM [facility] REPOSITORY TYPE CODE TESTS RESULT OUT OF RANGE REFERENCE UNITS LAB L501.0100 74-106 mg/dL High GLU 148 Result Comment: Fasting Glucose result greater than or equal to 126 mg/dL suggests DIABETES MELLITUS per A.D.A. criteria. LAB L501.1000 7-18 mg/dL High BUN 29 LAB L501.1100 0.55-1.02 mg/dL High CREAT,SERUM 1.22 Result Comment: The validity of the calculated GFR AND GFRAA in patients over 70 years has not been determined. Clinical correlation is essential. LAB L501.1110 >60 mL/min Low EST GFR 45 Result Comment: Non- GFR Calc LAB L501.1115 >60 mL/min Low EST GFR - AA 54 Result Comment: GFR Calc LAB L501.1255 ml/min Normal Estimated CRCL 29.92 LAB L501.1300 10-20 RATIO High BUN/CRE 23.8 LAB L501.1500 6.4-8. g/dL Normal 2 T PROT 7.7 LAB L501.1800 3.2-5. g/dL Normal 0 ALB 3.5 LAB L501.1950 2.2-4. g/dL Normal 2 GLOB 4.2 LAB L501.2000 0.9-2. RATIO Low 4 A/G 0.8 LAB L501.2200 8.5-10 mg/dL Normal .1 CA 9.9 LAB L501.4100 15-37 U/L Normal AST 20 LAB L501.4305 45-117 U/L Normal ALK P 73 LAB L501.4405 13-56 U/L Normal ALT 28 Result Comment: Please note revised ALT reference range effective 2017. LAB L501.4600 0.20-1.00 mg/dL Normal T BILI 0.90 LAB L501.5300 136-145 mmol/L Normal NA 139 LAB L501.5600 3.5-5.1 mmol/L Normal K 4.2 LAB L501.5900 98-107 mmol/L Normal CL 105 LAB L501.6100 21.0-32.0 mmol/L Normal CO2 25.0 LAB L501.6200 5-15 Normal GAP 9 Performed By: #### L500.4050 #### [facility] [address] [facility] [place], [address] KNEE 3 VIEWS Observed: 08/27/2017 Status: F Source: [place] 9:14 PM [facility] REPOSITORY [facility] Imaging Services [address] [place] [address] Knee 3 Views MR#: [id number] Acct: [id number] Name: DEBBIE KENNEY Rep #: [id number] : 1935 F 82 From: Haylie Hudson MD PCP: Philip Todd MD Status: REG ER Study: Knee 3 Views Date of Exam: 08/27/17 Exam# [id number] Ordering Dr: Lisa Mariscal DO STUDY: X-RAY - RIGHT KNEE REASON FOR EXAM: Female, 82 years old. Pain in right knee. TECHNIQUE: 3 view(s) of the knee. COMPARISON: None. FINDINGS: Normal visualized distal femur. Normal visualized proximal tibia and fibula. Normal proximal tibiofibular articulation. There is mild degenerative arthrosis of the medial femorotibial compartment. There is mild degenerative arthrosis of the lateral femorotibial compartment. There is mild degenerative arthrosis of the patellofemoral articulation. There is a soft tissue prominence in the suprapatellar region suggesting a joint effusion. The soft tissue structures are unremarkable. RAD/Knee 3 Views IMPRESSION: Degenerative changes. Joint effusion. Electronically Signed: Haylie Hudson MD at 21:58 EST Tel , Service support , CC: Lisa Mariscal DO; Philip Todd MD Legal Support Specialist: Signed Observed: 08/12/2017 Status: F Source: [place] URINE CULTURE 12:21 PM [facility] REPOSITORY Sp. Request/Comment: - Specimen received in preservative Culture Result - >=100,000 CFU/ml Citrobacter koseri (diversus) --> ABNORMAL ALERT ORGANISM: Citrobacter koseri (diversus) METHOD: Minimum inhibitory concentration(Vitek) Antibiotic Interp RIVERA Status Ampicillin RESISTANT >=32 F Gentamicin SUSCEPTIBLE <=1 F Trimeth sulfameth SUSCEPTIBLE <=20 F Cefazolin SUSCEPTIBLE <=4 F CLSI breakpoints for therapy of uncomplicated UTI's due to E.coli, K.pneumoniae, and P.mirabilis were applied and may be used to predict the activity of oral agents(cefaclor, cefdinir, cefpodoxime, cefp rozil, cefuroxime, cephalexin, loracarbef). Ciprofloxacin SUSCEPTIBLE <=0.25 F Nitrofurantoin INTERMEDIATE 64 F Cefepime SUSCEPTIBLE <=1 F Piperacillin/Tazobac SUSCEPTIBLE <=4 F Ampicillin Sulbact SUSCEPTIBLE 4 F Ceftriaxone SUSCEPTIBLE <=1 F Enterobacter, Citrobacter, and Serratia may develop resistance during prolonged therapy with third generation cephalosporins as a result of derepression of AmpC beta lactamase. Meropenem SUSCEPTIBLE <=0.25 F Ertapenem SUSCEPTIBLE <=0.5 F Performed By: #### URCUL #### [facility] [address] [place], [place] [address] PROGRESS Observed: 08/12/2017 Status: COMPLETED Source: [place] 12:06 PM [facility] REPOSITORY HNO ID: [id number] Author: Rodríguez Berman (Sascha Campbell Service: (none) Author Type: Physician Director Of Critical Care Type: Progress Notes Filed: 08/12/2017 1:03 PM Note Text: 82 year old female with c/o 1. Urinary frequency, small amounts, incomplete voiding x 1 week. No fever. No nausea or vomiting. No abdominal or flank pain. A few UTIs in past. 2. Calcium supplements: concerned about articles she's read indicating it causes plaque in arteries. Questions use. 3. Leg cramps: off and on. 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 Leg feels heavy at night. 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 Makes meals, hand glasses. No lifting. 4. HTN: Current meds: Lisinopril 10mg , HCTZ 12.5mg, Norvasc 5mg Patient is compliant with meds No Monitors bp at home: No. If yes, readings: Denies side effects: Yes. Chest pain: No. Dyspnea: No. Edema: No. Palpitations: No. Syncope: No. Headache: No. Dizziness: No. 5. Taking medication as directed consistently? No Medical Issues / Complications: hypertension, hyperlipidemia and nephropathy Checking blood sugars at home? No. If yes, range: n/a Watching diet? Yes Physical Activity: Sedentary Hypoglycemic spells? No Any visual disturbance? Yes. Sees Dr. Rendon for open angle glaucoma. No retinopathy. Chest pain? No New numbness, tingling or loss of sensation? No Any recent foot problems, sores or rashes? No Any recent or sudden weight loss? No Any recent illness? No HBA1C: Hemoglobin A1C (%) Date Value 04/11/2017 6.4 01/14/2017 6.2 ) CMP: Glucose 122 05/01/2017 BUN 29 05/01/2017 Creatinine 1.16 05/01/2017 Sodium 143 05/01/2017 Potassium 4.7 05/01/2017 Chloride 106 05/01/2017 CO2 21 05/01/2017 Protein, Total 6.8 04/11/2017 Albumin 3.6 04/11/2017 Calcium 9.3 05/01/2017 Alkaline Phosphatase 54 04/11/2017 Bilirubin, Total 0.9 04/11/2017 AST 22 04/11/2017 ALT 21 04/11/2017 Last 2 Encounter Wt Readings: Date: Wt: 08/12/2017 106.6 kg (235 lb) 05/27/2017 108 kg (238 lb) Hyperlipidemia: Taking medication consistently Yes Observing low cholesterol high fiber diet Yes Muscle aches Yes Stomach complaints/ diarrhea No Last 2 Lipids: Cholesterol, Sarah 226 09/13/2011 Cholesterol, Sarah 251 07/27/2010 HDL Chol, Sarah 39 09/13/2011 HDL Chol, Sarah 43 07/27/2010 VLDL Chol, Paoli 64 09/13/2011 VLDL Chol, Sarah 35 07/27/2010 Triglyceride, Paoli 321 09/13/2011 Triglyceride, Paoli 174 07/27/2010 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 - Benign neoplasm of colon - Diverticulosis of colon (without mention of hemorrhage) Diverticulosis - Glaucoma - HTN (hypertension) - Hyperlipidemia - Left carotid stenosis checking yearly - Lumbago - Macular pucker of both eyes stable - Other specified glaucoma - Posterior capsule opacification OD - Pseudophakia of both eyes stable - Ptosis of eyelid OU-stable - Snoring - Type II or unspecified type diabetes mellitus without mention of complication, not stated as uncontrolled PAST SURGICAL HISTORY Procedure Laterality Date - CATARACT EXTRACTION HX Bilateral 12 - COLONOSCOP W/ OR W/O [facility] SPEC 03/26/02 Colonoscopy - COLONOSCOP W/ OR W/O [facility] SPEC 05/18/2008 Colonoscopy - COLONOSCOP W/ OR W/O [facility] SPEC 01/13/14 Colonoscopy - REMOVAL GALLBLADDER 97 Cholecystectomy - REPAIR ING HERNIA,5+Y/O,REDUCIBL Hernia repair, inguinal - VAGINAL HYSTERECTOMY 77 Hysterectomy, vaginal Social History Marital status: Spouse name: Years of education: Number of children: Social History Main Topics Smoking status: Never Smoker Smokeless status: Never Used Alcohol use: No Drug use: No ACTIVE PROBLEM LIST Dermatophytosis of Nail Lumbago Personal History of Colonic Polyps Diverticulosis of Colon (Without Mention of Hemorrhage) Essential Hypertension, Benign Unspecified Cerebral Artery Occlusion With Cerebral Infarction Mixed Hyperlipidemia Benign Paroxysmal Positional Vertigo Neuropathy (Hcc) Family History of Colon Cancer Diabetes Mellitus (Hcc) Carotid Arterial Disease (Hcc) Primary Osteoarthritis of Right Hip Pain in Right Hip Arthropathy of Sacroiliac Joint (Hcc) Pain in Right Knee Abnormal Mammogram Pancreatic Cyst Ckd (Chronic Kidney Disease) Stage 1, Gfr 90 Ml/Min Or Greater Current Outpatient Prescriptions: lisinopril (ZESTRIL, PRINIVIL) 10 mg tablet Take 1 tablet by mouth once daily. Disp: 90 tablet Rfl: 1 atorvastatin (LIPITOR) 10 mg tablet Take 1 tablet by mouth daily at bedtime. For cholesterol. Disp: 90 tablet Rfl: 1 amLODIPine (NORVASC) 5 mg tablet Take 1 tablet by mouth once daily. Disp: 30 tablet Rfl: 5 OMEGA 9-EFB-MGM-OTHER OM3-D3 ORAL Take by mouth. Disp: Rfl: hydroCHLOROthiazide (HYDRODIURIL, ESIDRIX) 25 mg tablet Take 0.5 tablets by mouth once daily. Disp: 90 tablet Rfl: 1 aspirin, enteric coated (ASPIRIN, ENTERIC COATED) 81 mg EC tablet Take 81 mg by mouth every other day. Disp: Rfl: nateglinide (STARLIX) 60 mg tablet Take 1 tablet by mouth three times daily before meals. Disp: 270 tablet Rfl: 3 Cinnamon Bark (CINNAMON) 500 mg ORAL Cap Take 1 capsule by mouth once daily. Disp: Rfl: 0 ascorbic acid (VITAMIN C) 500 mg ORAL tablet Take 1 tablet by mouth once daily. Disp: Rfl: 0 calcium-vitamin D 500 mg(1,250mg) -200 unit ORAL per tablet Take one(1) tablet daily. Disp: Rfl: 0 cimetidine(TAGAMET 300 MG TAB) Take one(1) tablet daily. Disp: Rfl: 0 XALATAN 0.005 % EYE DROPS one drop both eyes q hs Disp: 1 Rfl: 0 No current facility-administered medications for this visit. TETANUS due on 11/18/2001 DILATED RETINAL EXAM due on 09/03/2017 EXAM: BP 130/50 Pulse 68 Temp 36.6 ?C (97.8 ?F) (Tympanic) Resp 20 Wt 106.6 kg (235 lb) BMI 29.37 kg/m2 Pleasant obese adult older woman in no acute distress. Alert and oriented all spheres. Normal affect and cognition. Speech normal. No deficits to learning or comprehension. Skin warm, dry, pink to lips and nailbeds. Normal turgor. Respirations regular and unlabored. HEENT WNL. TM's clear. Nose and oropharynx free from injection or lesion. No cervical lymph nodes. Thyroid non-tender, no masses Chest CTA. HRRR without murmur or gallop. Abdomen: active bowel sounds throughout, soft, nontender, no masses or organomegaly. No CVAT. Extrem: no clubbing, cyanosis. 1/4+ pitting distal 2/3 lower leg edema. Extremities are warm and pink with prompt capillary refill. Urine dip: moderate blood, mod leuk ASSESSMENT/PLAN: 1. Dysuria - ICD9: 788.1, ICD10: R30.0 (primary diagnosis) acute - Patient education for prevention given - UA DIP B/O - PHENAZOPYRIDINE 200 MG TABLET - NITROFURANTOIN MONOHYDRATE AND MACROCRYSTAL 100 MG ORAL CAP - URINE CULTURE 2. Essential hypertension, benign - ICD9: 401.1, ICD10: I10 - good control - Continue current medication(s) - LISINOPRIL 10 MG TABLET - AMLODIPINE 5 MG TABLET - HYDROCHLOROTHIAZIDE 25 MG TABLET 3. Mixed hyperlipidemia - ICD9: 272.2, ICD10: E78.2 - good control - Continue current medication. - ATORVASTATIN 10 MG TABLET 4. Leg cramps - ICD9: 729.82, ICD10: R25.2 Educated on typical causes of leg cramps. Her circulation is fine but she needs to move during the day and not sit for prolonged periods. We discussed vitamin E and magnesium supplements [id number] dosing. We'll check labs to be certain. Emphasized the importance of drinking water especially since she's been on the dry side with her labs. Discussed gabapentin but patient was not interested in trying. - MAGNESIUM BLD - CK CREATINE KINASE 5. 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 - Continue current medications 6. Chronic renal insufficiency, stage 3 (moderate) - ICD9: 585.3, ICD10: N18.3 - BMP Patient (guardian) expressed understanding of instructions and agrees with plan. F/u in 3 months YAW Joseph Observed: 08/12/2017 Status: COMPLETED Source: [place] 11:40 AM [facility] REPOSITORY Office Visit (FAMPWS) DEBBIE KENNEY ([id number]) 1935 F Date Time Provider Department 08/12/17 11:40 AM [facility] During your visit today, we recorded the following information about you: Temperature Pulse Respiration Blood pressure 97.8 degrees 68/minute 20/minute 130/50 Weight 106.6 kg M Cullen Campbell PA-C 08/12/2017 1:03 PM Signed 82 year old female with c/o 1. Urinary frequency, small amounts, incomplete voiding x 1 week. No fever. No nausea or vomiting. No abdominal or flank pain. A few UTIs in past. 2. Calcium supplements: concerned about articles she's read indicating it causes plaque in arteries. Questions use. 3. Leg cramps: off and on. 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 Leg feels heavy at night. 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 Makes meals, hand glasses. No lifting. 4. HTN: Current meds: Lisinopril 10mg , HCTZ 12.5mg, Norvasc 5mg Patient is compliant with meds No Monitors bp at home: No. If yes, readings: Denies side effects: Yes. Chest pain: No. Dyspnea: No. Edema: No. Palpitations: No. Syncope: No. Headache: No. Dizziness: No. 5. Taking medication as directed consistently? No Medical Issues / Complications: hypertension, hyperlipidemia and nephropathy Checking blood sugars at home? No. If yes, range: n/a Watching diet? Yes Physical Activity: Sedentary Hypoglycemic spells? No Any visual disturbance? Yes. Sees Dr. Rendon for open angle glaucoma. No retinopathy. Chest pain? No New numbness, tingling or loss of sensation? No Any recent foot problems, sores or rashes? No Any recent or sudden weight loss? No Any recent illness? No HBA1C: Hemoglobin A1C (%) Date Value 04/11/2017 6.4 01/14/2017 6.2 ) CMP: Glucose 122 05/01/2017 BUN 29 05/01/2017 Creatinine 1.16 05/01/2017 Sodium 143 05/01/2017 Potassium 4.7 05/01/2017 Chloride 106 05/01/2017 CO2 21 05/01/2017 Protein, Total 6.8 04/11/2017 Albumin 3.6 04/11/2017 Calcium 9.3 05/01/2017 Alkaline Phosphatase 54 04/11/2017 Bilirubin, Total 0.9 04/11/2017 AST 22 04/11/2017 ALT 21 04/11/2017 Last 2 Encounter Wt Readings: Date: Wt: 08/12/2017 106.6 kg (235 lb) 05/27/2017 108 kg (238 lb) Hyperlipidemia: Taking medication consistently Yes Observing low cholesterol high fiber diet Yes Muscle aches Yes Stomach complaints/ diarrhea No Last 2 Lipids: Cholesterol, Sarah 226 09/13/2011 Cholesterol, Paoli 251 07/27/2010 HDL Chol, [place] 39 09/13/2011 HDL Chol, [place] 43 07/27/2010 VLDL Chol, Sarah 64 09/13/2011 VLDL Chol, [place] 35 07/27/2010 Triglyceride, Paoli 321 09/13/2011 Triglyceride, Paoli 174 07/27/2010 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 - Benign neoplasm of colon - Diverticulosis of colon (without mention of hemorrhage) Diverticulosis - Glaucoma - HTN (hypertension) - Hyperlipidemia - Left carotid stenosis checking yearly - Lumbago - Macular pucker of both eyes stable - Other specified glaucoma - Posterior capsule opacification OD - Pseudophakia of both eyes stable - Ptosis of eyelid OU-stable - Snoring - Type II or unspecified type diabetes mellitus without mention of complication, not stated as uncontrolled PAST SURGICAL HISTORY Procedure Laterality Date - CATARACT EXTRACTION HX Bilateral 12 - COLONOSCOP W/ OR W/O [facility] SPEC 03/26/02 Colonoscopy - COLONOSCOP W/ OR W/O [facility] SPEC 05/18/2008 Colonoscopy - COLONOSCOP W/ OR W/O [facility] SPEC 01/13/14 Colonoscopy - REMOVAL GALLBLADDER 97 Cholecystectomy - REPAIR ING HERNIA,5+Y/O,REDUCIBL Hernia repair, inguinal - VAGINAL HYSTERECTOMY 77 Hysterectomy, vaginal Social History Marital status: Spouse name: Years of education: Number of children: Social History Main Topics Smoking status: Never Smoker Smokeless status: Never Used Alcohol use: No Drug use: No ACTIVE PROBLEM LIST Dermatophytosis of Nail Lumbago Personal History of Colonic Polyps Diverticulosis of Colon (Without Mention of Hemorrhage) Essential Hypertension, Benign Unspecified Cerebral Artery Occlusion With Cerebral Infarction Mixed Hyperlipidemia Benign Paroxysmal Positional Vertigo Neuropathy (Hcc) Family History of Colon Cancer Diabetes Mellitus (Hcc) Carotid Arterial Disease (Hcc) Primary Osteoarthritis of Right Hip Pain in Right Hip Arthropathy of Sacroiliac Joint (Hcc) Pain in Right Knee Abnormal Mammogram Pancreatic Cyst Ckd (Chronic Kidney Disease) Stage 1, Gfr 90 Ml/Min Or Greater Current Outpatient Prescriptions: lisinopril (ZESTRIL, PRINIVIL) 10 mg tablet Take 1 tablet by mouth once daily. Disp: 90 tablet Rfl: 1 atorvastatin (LIPITOR) 10 mg tablet Take 1 tablet by mouth daily at bedtime. For cholesterol. Disp: 90 tablet Rfl: 1 amLODIPine (NORVASC) 5 mg tablet Take 1 tablet by mouth once daily. Disp: 30 tablet Rfl: 5 OMEGA 1-LSV-UWC-OTHER OM3-D3 ORAL Take by mouth. Disp: Rfl: hydroCHLOROthiazide (HYDRODIURIL, ESIDRIX) 25 mg tablet Take 0.5 tablets by mouth once daily. Disp: 90 tablet Rfl: 1 aspirin, enteric coated (ASPIRIN, ENTERIC COATED) 81 mg EC tablet Take 81 mg by mouth every other day. Disp: Rfl: nateglinide (STARLIX) 60 mg tablet Take 1 tablet by mouth three times daily before meals. Disp: 270 tablet Rfl: 3 Cinnamon Bark (CINNAMON) 500 mg ORAL Cap Take 1 capsule by mouth once daily. Disp: Rfl: 0 ascorbic acid (VITAMIN C) 500 mg ORAL tablet Take 1 tablet by mouth once daily. Disp: Rfl: 0 calcium-vitamin D 500 mg(1,250mg) -200 unit ORAL per tablet Take one(1) tablet daily. Disp: Rfl: 0 cimetidine(TAGAMET 300 MG TAB) Take one(1) tablet daily. Disp: Rfl: 0 XALATAN 0.005 % EYE DROPS one drop both eyes q hs Disp: 1 Rfl: 0 No current facility-administered medications for this visit. TETANUS due on 11/18/2001 DILATED RETINAL EXAM due on 09/03/2017 EXAM: BP 130/50 Pulse 68 Temp 36.6 ?C (97.8 ?F) (Tympanic) Resp 20 Wt 106.6 kg (235 lb) BMI 29.37 kg/m2 Pleasant obese adult older woman in no acute distress. Alert and oriented all spheres. Normal affect and cognition. Speech normal. No deficits to learning or comprehension. Skin warm, dry, pink to lips and nailbeds. Normal turgor. Respirations regular and unlabored. HEENT WNL. TM's clear. Nose and oropharynx free from injection or lesion. No cervical lymph nodes. Thyroid non-tender, no masses Chest CTA. HRRR without murmur or gallop. Abdomen: active bowel sounds throughout, soft, nontender, no masses or organomegaly. No CVAT. Extrem: no clubbing, cyanosis. 1/4+ pitting distal 2/3 lower leg edema. Extremities are warm and pink with prompt capillary refill. Urine dip: moderate blood, mod leuk ASSESSMENT/PLAN: 1. Dysuria - ICD9: 788.1, ICD10: R30.0 (primary diagnosis) acute - Patient education for prevention given - UA DIP B/O - PHENAZOPYRIDINE 200 MG TABLET - NITROFURANTOIN MONOHYDRATE ANDamp; MACROCRYSTAL 100 MG ORAL CAP - URINE CULTURE 2. Essential hypertension, benign - ICD9: 401.1, ICD10: I10 - good control - Continue current medication(s) - LISINOPRIL 10 MG TABLET - AMLODIPINE 5 MG TABLET - HYDROCHLOROTHIAZIDE 25 MG TABLET 3. Mixed hyperlipidemia - ICD9: 272.2, ICD10: E78.2 - good control - Continue current medication. - ATORVASTATIN 10 MG TABLET 4. Leg cramps - ICD9: 729.82, ICD10: R25.2 Educated on typical causes of leg cramps. Her circulation is fine but she needs to move during the day and not sit for prolonged periods. We discussed vitamin E and magnesium supplements [id number] dosing. We'll check labs to be certain. Emphasized the importance of drinking water especially since she's been on the dry side with her labs. Discussed gabapentin but patient was not interested in trying. - MAGNESIUM BLD - CK CREATINE KINASE 5. 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 - Continue current medications 6. Chronic renal insufficiency, stage 3 (moderate) - ICD9: 585.3, ICD10: N18.3 - BMP Patient (guardian) expressed understanding of instructions and agrees with plan. F/u in 3 months YAW Joseph PA-C 08/12/2017 12:21 PM Signed Force fluids with water and juices (not caffeine) to 2000cc per day until symptoms improve. Any mechanical pressure in the area of the urethra (wear urine comes out) may cause bacteria to be pushed up inside the bladder. You should urinate to clear out bacterial contamination before and after sex, after tampon insertion, or after washing the vaginal area. It is important to wipe front to back after voiding. If you develop a fever, chills, unusual back pain, or vomiting, this may mean you have infection in the kidney which can be more serious. If this occurs, or you fail to improve on the antibiotics in 3 days, either call the office to be checked or go to the emergency department. Take Macrobid as directed per prescription Pyridium is a urinary anesthetic which should decrease the discomfort over the next few days. It will turn the urine a bright orange or yellow color, and it will permanently stain clothing if you drip. If you should breakout in a rash, stop the medicine and call the office. Any antibiotic has the potential to cause diarrhea due to alteration in the normal bacterial gisela of the gut. This can be reduced by eating yogurt with active cultures daily while on the medication. If diarrhea becomes severe (watery, large volumes or more than 3-4/day) call the office. While on antibiotics women may experience yeast vaginitis due to alteration in the vaginal gisela. Symptoms include vaginal itching, irritation, and often a clumpy white discharge. If this occurs, there are several effective over the counter remedies available, including one-dose treatments. If these are unsuccessful, call the office. Antibiotics may interfere with control. If you are on oral contraceptives, use another form of protection (condoms, foams, jellies, diaphragm) throught the end of whatever pill pack you are on when you finish the antibiotic. Leg Cramps (Night Cramps) Leg cramps are common. The cause is not known in most cases. However, some medicines and some medical conditions can sometimes cause leg cramps. Regular calf stretching exercises may prevent leg cramps. Quinine tablets may be advised if you have leg cramps regularly. What are leg cramps? A leg cramp is a pain that comes from a muscle in the leg. It is due to a muscle spasm which is when a muscle contracts too hard. It usually occurs in one of the the calf muscles, below and behind a knee. The small muscles of the feet are sometimes affected. A cramp pain typically lasts a few minutes. In some cases it lasts just seconds, but in some cases it can last up to 10 minutes. The severity of the pain varies. The muscle may remain tender for up to 24 hours after a leg cramp. Leg cramps usually occur when you are resting - most commonly at night when in bed. (They are often called night cramps.) They may wake you from sleep. It can become a distressing condition if your sleep is regularly disturbed. Who gets leg cramps? Many people have an occasional leg cramp. However, they occur frequently in some people. They are more common in older people. About 1 in 3 people over the age of 60, and about half of people over the age of 80 have regular leg cramps. About 4 in 10 people who have leg cramps have at least three per week. They occur every day in some cases. What causes leg cramps? Unknown cause (idiopathic leg cramps) In most cases the cause is not known. One theory is that cramps occur when a muscle that is already in a shortened position is stimulated to contract. As the muscle is already shortened, to contract further may cause the muscle to go into spasm. This commonly happens at night in bed as the natural position we lie in is with the knees slightly bent (flexed), and with feet pointing slightly downwards. In this position the calf muscle is relatively shortened and prone to cramps. This theory explains why stretching exercises may cure the problem. Secondary causes In some cases, the cramps may be a symptom of another condition or problem. For example: Some medicines can cause cramps as a side-effect, or make cramps occur more often. These include: diuretics ('water tablets'), nifedipine, cimetidine, salbutamol, terbutaline, lithium, clofibrate, penicillamine, morphine (withdrawal), phenothiazines, and nicotinic acid. Over-exertion of muscles. Dehydration. Conditions that cause alterations in the balance of salts in the bloodstream (such as a high or low sodium or potassium level). Some people who have renal (kidney) dialysis get leg cramps. - usually in the later stages. An untreated under-active thyroid gland. Peripheral vascular disease (narrowing of the leg arteries which causes poor circulation). Cirrhosis of the liver is a rare cause. Lead poisoning. Sarcoidosis. Rare disorders of nerves. Excess alcohol. With the above conditions the cramps would just be one of various other symptoms. Therefore, if you are otherwise well, and have no other unexplained symptoms, then the leg cramps are likely to be idiopathic (unknown cause) and not due to a secondary cause. Note: leg cramps are different to a condition called restless legs syndrome. In this condition the legs can be uncomfortable, you feel creeping sensations in the legs, and it is relieved by walking about. See separate leaflet called 'Restless Legs Syndrome' for details. What is the treatment for a leg cramp? Stretching and massaging the affected muscle (usually a calf muscle) can usually relieve an attack of cramp. Most cramps soon ease off. Painkillers are not usually helpful for a sudden attack of cramp. However, a painkiller such as paracetamol may help to ease muscle discomfort and tenderness that sometimes persists for up to 24 hours after a cramp has gone. What are the options for preventing leg cramps? If cramps do not occur often, then no particular treatment is usually needed. However, if you have frequent cramps, you may wish to consider ways of preventing them. Consider your medication (where appropriate) or other conditions Tell your doctor if you take any of the medicines listed above. It may be causing the leg cramps, or making them recur more often. Alternative medicines may be available. Also, if you have other symptoms apart from cramps, see your doctor who may examine you or do some checks to rule out a secondary cause for the cramps. Stretching exercises Stretching exercises are commonly advised. However, there is a lack of good research evidence to prove that it works. One research study concluded that stretching exercises did reduce the number and severity of cramps, but another study did not confirm this. So, as it may help, it is worth trying if you are able to do the exercises. If it works, you will not need any tablets to prevent the leg cramps. At first, do stretching exercises of affected muscles for about five minutes, three times a day. Do the last exercise shortly before bedtime. If the cramps ease off, you may then only need to do the exercise once or twice a day to keep the cramps away. To stretch calf muscles, stand about 60-90 cm from a wall. Then, keeping the soles of your feet flat on the floor, bend forward and lean on the wall. You will feel your calf muscles stretch. Do this several times, each time for as long as you can manage. Posture of the legs when resting in bed Positions which prevent the calf muscle from shortening when you are asleep may help. The following are not proven treatments (from research studies), but some experts believe that they help to prevent cramps. using a pillow to prop the feet up in bed while sleeping on your back. hanging the feet over the end of the bed while sleeping on your front. keeping blankets loose at the foot of the bed to prevent toes and feet from pointing downwards during sleep. Quinine Quinine tablets are a common treatment. Quinine often reduces the number and severity of leg cramps, but may not stop them altogether. One tablet at bedtime is the normal dose. A four week course is commonly tried at first and can be continued if the number of leg cramps is reduced. It may be worth stopping the quinine tablets every three months or so to see if they are still needed. Most people can take quinine, but do not take it if you are or may become . There are also some rare conditions where you should not take quinine. (These include: a previous reaction to quinine; a previous haemolytic anaemia; optic neuritis; glucose 6-phosphate dehydrogenase deficiency.) Side-effects are uncommon at the low dose used to treat leg cramps. Read the medicine packet leaflet for a full list of possible side-effects. Note: quinine is dangerous in overdose, particularly in children. Keep tablets away from children. Other treatments Other medicines have been suggested as possible treatments for leg cramps. These include: naftidrofuryl, vitamin E, verapamil, diltiazem, painkillers, aspirin, orphenadrine, magnesium, calcium, and sodium chloride. TENS machines have also been suggested as a possible treatment. So far there is little research evidence to prove that these treatments work well. Your doctor may suggest trying one if all else fails. MUSCLE CRAMPS - a patient's guide Editorial Team Muscles cramps are caused by prolonged spasms, or involuntary contraction of a muscle. Muscle cramps, especially those of the legs, are extremely common, more so in the elderly. Although not dangerous to health, in some cases they may be symptoms of an underlying problem. Treatment is usually massage and stretching and adequate fluid intake, although in cases where cramps are frequent, medication may be recommended. What is a muscle cramp? A muscle cramp is an involuntarily and forcibly contracted muscle that does not relax. Any of the muscles under voluntary control (skeletal muscles) can cramp. Cramps of the extremities are very common, especially the legs and feet, and particularly the calf (often termed a charley horse cramp). When a muscle (or even a few fibers of a muscle) involuntarily contracts, it is called a spasm and becomes a cramp when the spasm is forceful and sustained. Cramps can last anywhere from a few seconds to a quarter of an hour, and occasionally longer. It is not uncommon for a cramp to recur several times before finally going away. The cramp may involve a part of a muscle, the entire muscle, or several muscles that usually act together. Most cramps are not a danger to health. Although they can be very uncomfortable, cramps are rarely a sign of a dangerous disease. Involuntary muscles such as those of the bowel, heart and uterus can also cramp. Involuntary muscle cramps are not discussed in this article. How common are muscle cramps? Almost everyone - an estimated 95% - experiences a muscle cramp at some stage. A survey showed 30% of people suffered a cramp in the past year and 2% had them once a week. Although children can get them, cramps are more common in adults and tend to become more frequent with age. women and the elderly commonly experience nocturnal leg cramps. Muscle spasms in the calf - charley horse - can occur one or many times during the night, from a few seconds duration through to a few minutes. What causes muscle cramps? Muscle cramps can arise from a wide variety of causes: Muscle fatigue from exercise or overuse of particular muscles. Imbalances of fluids, hormones, or body salts (the electrolytes calcium, magnesium, potassium) or dehydration. A poor blood supply. Nerve abnormalities. Diseases affecting nerves and muscles. Some medications, for instance, diuretics. Cramps can be caused by muscle fatigue from sports or from unaccustomed activities. Cramp pain following exercise is usually relieved by rest, but in severe cases even rest offers no benefit, and pain can continue even when lying down. Muscle fatigue from sitting or lying for an extended period in an awkward position, or any repetitive use can cause cramps. Older adults are at risk of cramps when performing exaggerated physical activities. When injury such as a broken bone or strained muscle occurs, sometimes the muscles surrounding the injury spasm as a protective mechanism. In this case the spasm tends to minimize movement and stabilise the area of injury. Intermittent claudication is a problem in the arteries where the muscles in the legs are deprived of oxygen. Intermittent claudication is caused by blockages in the leg arteries from plaque buildup. Some conditions, most often diabetes, cause the legs to be numb or tingling, known as peripheral neuropathy. What is the treatment? Correct treatment depends on the cause of the cramps. For persistent and frequent cramps, a doctor will usually look at the patient's medical history, make a physical examination and perhaps arrange laboratory tests. This is to ascertain whether there is any serious underlying cause for the cramps. The most common and usually the most effective treatment for leg cramps is daily stretching of the affected muscles. Quinine has historically been used as a remedy for muscle cramps and there is evidence that it is modestly effective, however quinine supplements have been recently banned by the [place] Food and Drug administration for over the counter sales due to serious and fatal side effects. Quinine may still be prescribed by a doctor, but the risks and benefits of using it must be taken into account. Pioneering studies are underway using a compound called naftidrofuryl as an alternative to quinine. What are the risks of using Quinine? The risks associated with quinine relate to the side effects. These include ringing in the ears, decreased hearing, vertigo, blurred vision, nausea, vomiting, diarrhea, abdominal pain, flushing or itching of the skin, headache, and fever. In particular, quinine should not be used by people with ringing in the ears (tinnitus) or nerve disease of the nerve to the eyes (optic nerve). Patients with irregular heart rhythms, such as atrial fibrillation, should talk to their doctor about whether they can take quinine. How can a cramp be stopped? Most muscle cramps can be stopped if the muscle is stretched, either by standing up, massaging, or by applying cold packs. Stretch and massage a cramped leg by straightening it and pointing toes upward, while gently rubbing the cramped area to help the muscle relax. For a calf cramp - charley horse - put weight on the affected leg and bend the knee slightly. For a thigh cramp, keep both legs straight and lean forward at the waist, using a chair to steady yourself. A cold pack can be used to relax tense muscles. Following a cramp, a warm towel or heating pad can alleviate pain or tenderness. How can cramps be prevented? Drinking plenty of fluids may help to prevent reoccurring cramps, as fluids help muscles contract and relax. Drink 6-8 cups of liquid per day, preferably non-caffeinated drinks. Daily stretching may help prevent nocturnal leg cramps. Before sleep, stand just short of a metre from a wall with hands on the wall. While bending one knee, lean towards the wall and hold for ten seconds keeping the heels pressed flat to the floor before straightening the knee. Repeat using the other leg. Each leg should be stretched up to ten times for best effect. For continual, frequent cramps, seek medical advice. A doctor may prescribe a suitable muscle relaxant and can check there are no underlying problems causing the cramps. Referring Provider: SELF [[id number]] Allergies As of Date: 08/12/2017 Noted Allergy Reaction DEMEROL (MEPERIDINE (PF)) 07/11/2005 1 - Mental Status Change LEVAQUIN (LEVOFLOXACIN) 08/11/2014 8 - GI Upset Date Reviewed: 08/12/2017 Reviewed by: Julianna Carey LPN - Fully Assessed Reason for Visit: Urinary Frequency [1086] Cmt: x 1 week UTI [116] Primary Visit Diagnosis:Dysuria [R30.0] Other Visit Diagnoses:Essential hypertension, benign [I10] Mixed hyperlipidemia [E78.2] Leg cramps [R25.2] 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thy, unspecified skilled nursing insulin use status (HCC) [E11.21] Chronic renal insufficiency, stage 3 (moderate) [N18.3] Order(s):lisinopril (ZESTRIL, PRINIVIL) 10 mg tabletTake 1 tablet by mouth once daily.Disp: 90 tabletRfl: 1 atorvastatin (LIPITOR) 10 mg tabletTake 1 tablet by mouth daily at bedtime. For cholesterol.Disp: 90 tabletRfl: 1 amLODIPine (NORVASC) 5 mg tabletTake 1 tablet by mouth once daily.Disp: 90 tabletRfl: 1 hydroCHLOROthiazide (HYDRODIURIL, ESIDRIX) 25 mg tabletTake 0.5 tablets by mouth once daily.Disp: 90 tabletRfl: 1 UA DIP B/O [[id number]] Order #: [id number] phenazopyridine (PYRIDIUM, GERIDIUM) 200 mg tabletTake 1 tablet by mouth three times daily as needed for up to 2 days.Disp: 6 tabletRfl: 0 nitrofurantoin monohydrate and macrocrystal (MACROBID) 100 mg capsuleTake 1 capsule by mouth twice daily with meals for 7 days.Disp: 14 capsuleRfl: 0 URINE CULTURE [SQURCUL] Order #: [id number] BASIC METABOLIC PNL [SQBMP] Order #: [id number] FUTURE MAGNESIUM BLD [SQMG1] Order #: [id number] FUTURE CK CREATINE KINASE [SQCK] Order #: [id number] FUTURE Prescriptions as of 08/12/2017 Sig: LISINOPRIL 10 MG TABLET Take 1 tablet by mouth once d* ATORVASTATIN 10 MG TABLET Take 1 tablet by mouth daily * AMLODIPINE 5 MG TABLET Take 1 tablet by mouth once d* OMEGA 3-PPG-LLO-OTHER OM3-D3 * Take by mouth. ASPIRIN 81 MG TABLET,DELAYED * Take 81 mg by mouth every oth* NATEGLINIDE 60 MG TABLET Take 1 tablet by mouth three * CINNAMON BARK 500 MG CAPSULE Take 1 capsule by mouth once * ASCORBIC ACID (VITAMIN C) 500* Take 1 tablet by mouth once d* CALCIUM CARBONATE 500 MG (1,2* Take one(1) tablet daily. TAGAMET 300 MG TABLET Take one(1) tablet daily. XALATAN 0.005 % EYE DROPS one drop both eyes q hs HYDROCHLOROTHIAZIDE 25 MG TAB* Take 0.5 tablets by mouth onc* PHENAZOPYRIDINE 200 MG TABLET Take 1 tablet by mouth three * NITROFURANTOIN MONOHYDRATE AND * Take 1 capsule by mouth twice* Problem List As Of Date 08/12/2017 Noted Resolved DERMATOPHYTOSIS OF NAIL [B35.1] INVALID FOR* LUMBAGO [M54.5] PERS HX COLONIC POLYPS [Z86.010] More... DIVERTICULOSIS OF COLON W/O BLEED [K57.30] More... Unspecified hemorrhoids without mention of comp* 03/14/2016 More... 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] INVALID FOR* Mixed hyperlipidemia [E78.2] INVALID FOR* Impaired fasting glucose [R73.01] INVALID FOR*11/22/2014 Onychia and paronychia of toe [L03.039] INVALID FOR*09/26/2016 Ingrowing nail [L60.0] INVALID FOR*09/26/2016 Benign paroxysmal positional vertigo [H81.10] INVALID FOR* Dizziness [R42] INVALID FOR*09/26/2016 Neuropathy [G62.9] INVALID FOR* Diabetes mellitus (HCC) [E11.9] INVALID FOR*02/08/2014 Family history of colon cancer [Z80.0] INVALID FOR* Diabetes mellitus (HCC) [E11.9] INVALID FOR* Carotid arterial disease (HCC) [I77.9] INVALID FOR* 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 Any mechanical pressure in the area of the urethra (wear urine comes out) may cause bacteria to be pushed up inside the bladder. You should urinate to clear out bacterial contamination before and after sex, after tampon insertion, or after washing the vaginal area. It is important to wipe front to back after voiding. If you develop a fever, chills, unusual back pain, or vomiting, this may mean you have infection in the kidney which can be more serious. If this occurs, or you fail to improve on the antibiotics in 3 days, either call the office to be checked or go to the emergency department. Take Macrobid as directed per prescription Pyridium is a urinary anesthetic which should decrease the discomfort over the next few days. It will turn the urine a bright orange or yellow color, and it will permanently stain clothing if you drip. If you should breakout in a rash, stop the medicine and call the office. Any antibiotic has the potential to cause diarrhea due to alteration in the normal bacterial gisela of the gut. This can be reduced by eating yogurt with active cultures daily while on the medication. If diarrhea becomes severe (watery, large volumes or more than 3-4/day) call the office. While on antibiotics women may experience yeast vaginitis due to alteration in the vaginal gisela. Symptoms include vaginal itching, irritation, and often a clumpy white discharge. If this occurs, there are several effective over the counter remedies available, including one-dose treatments. If these are unsuccessful, call the office. Antibiotics may interfere with control. If you are on oral contraceptives, use another form of protection (condoms, foams, jellies, diaphragm) throught the end of whatever pill pack you are on when you finish the antibiotic. Leg Cramps (Night Cramps) Leg cramps are common. The cause is not known in most cases. However, some medicines and some medical conditions can sometimes cause leg cramps. Regular calf stretching exercises may prevent leg cramps. Quinine tablets may be advised if you have leg cramps regularly. What are leg cramps? A leg cramp is a pain that comes from a muscle in the leg. It is due to a muscle spasm which is when a muscle contracts too hard. It usually occurs in one of the the calf muscles, below and behind a knee. The small muscles of the feet are sometimes affected. A cramp pain typically lasts a few minutes. In some cases it lasts just seconds, but in some cases it can last up to 10 minutes. The severity of the pain varies. The muscle may remain tender for up to 24 hours after a leg cramp. Leg cramps usually occur when you are resting - most commonly at night when in bed. (They are often called night cramps.) They may wake you from sleep. It can become a distressing condition if your sleep is regularly disturbed. Who gets leg cramps? Many people have an occasional leg cramp. However, they occur frequently in some people. They are more common in older people. About 1 in 3 people over the age of 60, and about half of people over the age of 80 have regular leg cramps. About 4 in 10 people who have leg cramps have at least three per week. They occur every day in some cases. What causes leg cramps? Unknown cause (idiopathic leg cramps) In most cases the cause is not known. One theory is that cramps occur when a muscle that is already in a shortened position is stimulated to contract. As the muscle is already shortened, to contract further may cause the muscle to go into spasm. This commonly happens at night in bed as the natural position we lie in is with the knees slightly bent (flexed), and with feet pointing slightly downwards. In this position the calf muscle is relatively shortened and prone to cramps. This theory explains why stretching exercises may cure the problem. Secondary causes In some cases, the cramps may be a symptom of another condition or problem. For example: Some medicines can cause cramps as a side-effect, or make cramps occur more often. These include: diuretics ('water tablets'), nifedipine, cimetidine, salbutamol, terbutaline, lithium, clofibrate, penicillamine, morphine (withdrawal), phenothiazines, and nicotinic acid. Over-exertion of muscles. Dehydration. Conditions that cause alterations in the balance of salts in the bloodstream (such as a high or low sodium or potassium level). Some people who have renal (kidney) dialysis get leg cramps. - usually in the later stages. An untreated under-active thyroid gland. Peripheral vascular disease (narrowing of the leg arteries which causes poor circulation). Cirrhosis of the liver is a rare cause. Lead poisoning. Sarcoidosis. Rare disorders of nerves. Excess alcohol. With the above conditions the cramps would just be one of various other symptoms. Therefore, if you are otherwise well, and have no other unexplained symptoms, then the leg cramps are likely to be idiopathic (unknown cause) and not due to a secondary cause. Note: leg cramps are different to a condition called restless legs syndrome. In this condition the legs can be uncomfortable, you feel creeping sensations in the legs, and it is relieved by walking about. See separate leaflet called 'Restless Legs Syndrome' for details. What is the treatment for a leg cramp? Stretching and massaging the affected muscle (usually a calf muscle) can usually relieve an attack of cramp. Most cramps soon ease off. Painkillers are not usually helpful for a sudden attack of cramp. However, a painkiller such as paracetamol may help to ease muscle discomfort and tenderness that sometimes persists for up to 24 hours after a cramp has gone. What are the options for preventing leg cramps? If cramps do not occur often, then no particular treatment is usually needed. However, if you have frequent cramps, you may wish to consider ways of preventing them. Consider your medication (where appropriate) or other conditions Tell your doctor if you take any of the medicines listed above. It may be causing the leg cramps, or making them recur more often. Alternative medicines may be available. Also, if you have other symptoms apart from cramps, see your doctor who may examine you or do some checks to rule out a secondary cause for the cramps. Stretching exercises Stretching exercises are commonly advised. However, there is a lack of good research evidence to prove that it works. One research study concluded that stretching exercises did reduce the number and severity of cramps, but another study did not confirm this. So, as it may help, it is worth trying if you are able to do the exercises. If it works, you will not need any tablets to prevent the leg cramps. At first, do stretching exercises of affected muscles for about five minutes, three times a day. Do the last exercise shortly before bedtime. If the cramps ease off, you may then only need to do the exercise once or twice a day to keep the cramps away. To stretch calf muscles, stand about 60-90 cm from a wall. Then, keeping the soles of your feet flat on the floor, bend forward and lean on the wall. You will feel your calf muscles stretch. Do this several times, each time for as long as you can manage. Posture of the legs when resting in bed Positions which prevent the calf muscle from shortening when you are asleep may help. The following are not proven treatments (from research studies), but some experts believe that they help to prevent cramps. using a pillow to prop the feet up in bed while sleeping on your back. hanging the feet over the end of the bed while sleeping on your front. keeping blankets loose at the foot of the bed to prevent toes and feet from pointing downwards during sleep. Quinine Quinine tablets are a common treatment. Quinine often reduces the number and severity of leg cramps, but may not stop them altogether. One tablet at bedtime is the normal dose. A four week course is commonly tried at first and can be continued if the number of leg cramps is reduced. It may be worth stopping the quinine tablets every three months or so to see if they are still needed. Most people can take quinine, but do not take it if you are or may become . There are also some rare conditions where you should not take quinine. (These include: a previous reaction to quinine; a previous haemolytic anaemia; optic neuritis; glucose 6-phosphate dehydrogenase deficiency.) Side-effects are uncommon at the low dose used to treat leg cramps. Read the medicine packet leaflet for a full list of possible side-effects. Note: quinine is dangerous in overdose, particularly in children. Keep tablets away from children. Other treatments Other medicines have been suggested as possible treatments for leg cramps. These include: naftidrofuryl, vitamin E, verapamil, diltiazem, painkillers, aspirin, orphenadrine, magnesium, calcium, and sodium chloride. TENS machines have also been suggested as a possible treatment. So far there is little research evidence to prove that these treatments work well. Your doctor may suggest trying one if all else fails. MUSCLE CRAMPS - a patient's guide Editorial Team Muscles cramps are caused by prolonged spasms, or involuntary contraction of a muscle. Muscle cramps, especially those of the legs, are extremely common, more so in the elderly. Although not dangerous to health, in some cases they may be symptoms of an underlying problem. Treatment is usually massage and stretching and adequate fluid intake, although in cases where cramps are frequent, medication may be recommended. What is a muscle cramp? A muscle cramp is an involuntarily and forcibly contracted muscle that does not relax. Any of the muscles under voluntary control (skeletal muscles) can cramp. Cramps of the extremities are very common, especially the legs and feet, and particularly the calf (often termed a charley horse cramp). When a muscle (or even a few fibers of a muscle) involuntarily contracts, it is called a spasm and becomes a cramp when the spasm is forceful and sustained. Cramps can last anywhere from a few seconds to a quarter of an hour, and occasionally longer. It is not uncommon for a cramp to recur several times before finally going away. The cramp may involve a part of a muscle, the entire muscle, or several muscles that usually act together. Most cramps are not a danger to health. Although they can be very uncomfortable, cramps are rarely a sign of a dangerous disease. Involuntary muscles such as those of the bowel, heart and uterus can also cramp. Involuntary muscle cramps are not discussed in this article. How common are muscle cramps? Almost everyone - an estimated 95% - experiences a muscle cramp at some stage. A survey showed 30% of people suffered a cramp in the past year and 2% had them once a week. Although children can get them, cramps are more common in adults and tend to become more frequent with age. women and the elderly commonly experience nocturnal leg cramps. Muscle spasms in the calf - charley horse - can occur one or many times during the night, from a few seconds duration through to a few minutes. What causes muscle cramps? Muscle cramps can arise from a wide variety of causes: Muscle fatigue from exercise or overuse of particular muscles. Imbalances of fluids, hormones, or body salts (the electrolytes calcium, magnesium, potassium) or dehydration. A poor blood supply. Nerve abnormalities. Diseases affecting nerves and muscles. Some medications, for instance, diuretics. Cramps can be caused by muscle fatigue from sports or from unaccustomed activities. Cramp pain following exercise is usually relieved by rest, but in severe cases even rest offers no benefit, and pain can continue even when lying down. Muscle fatigue from sitting or lying for an extended period in an awkward position, or any repetitive use can cause cramps. Older adults are at risk of cramps when performing exaggerated physical activities. When injury such as a broken bone or strained muscle occurs, sometimes the muscles surrounding the injury spasm as a protective mechanism. In this case the spasm tends to minimize movement and stabilise the area of injury. Intermittent claudication is a problem in the arteries where the muscles in the legs are deprived of oxygen. Intermittent claudication is caused by blockages in the leg arteries from plaque buildup. Some conditions, most often diabetes, cause the legs to be numb or tingling, known as peripheral neuropathy. What is the treatment? Correct treatment depends on the cause of the cramps. For persistent and frequent cramps, a doctor will usually look at the patient's medical history, make a physical examination and perhaps arrange laboratory tests. This is to ascertain whether there is any serious underlying cause for the cramps. The most common and usually the most effective treatment for leg cramps is daily stretching of the affected muscles. Quinine has historically been used as a remedy for muscle cramps and there is evidence that it is modestly effective, however quinine supplements have been recently banned by the [place] Food and Drug administration for over the counter sales due to serious and fatal side effects. Quinine may still be prescribed by a doctor, but the risks and benefits of using it must be taken into account. Pioneering studies are underway using a compound called naftidrofuryl as an alternative to quinine. What are the risks of using Quinine? The risks associated with quinine relate to the side effects. These include ringing in the ears, decreased hearing, vertigo, blurred vision, nausea, vomiting, diarrhea, abdominal pain, flushing or itching of the skin, headache, and fever. In particular, quinine should not be used by people with ringing in the ears (tinnitus) or nerve disease of the nerve to the eyes (optic nerve). Patients with irregular heart rhythms, such as atrial fibrillation, should talk to their doctor about whether they can take quinine. How can a cramp be stopped? Most muscle cramps can be stopped if the muscle is stretched, either by standing up, massaging, or by applying cold packs. Stretch and massage a cramped leg by straightening it and pointing toes upward, while gently rubbing the cramped area to help the muscle relax. For a calf cramp - charley horse - put weight on the affected leg and bend the knee slightly. For a thigh cramp, keep both legs straight and lean forward at the waist, using a chair to steady yourself. A cold pack can be used to relax tense muscles. Following a cramp, a warm towel or heating pad can alleviate pain or tenderness. How can cramps be prevented? Drinking plenty of fluids may help to prevent reoccurring cramps, as fluids help muscles contract and relax. Drink 6-8 cups of liquid per day, preferably non-caffeinated drinks. Daily stretching may help prevent nocturnal leg cramps. Before sleep, stand just short of a metre from a wall with hands on the wall. While bending one knee, lean towards the wall and hold for ten seconds keeping the heels pressed flat to the floor before straightening the knee. Repeat using the other leg. Each leg should be stretched up to ten times for best effect. For continual, frequent cramps, seek medical advice. A doctor may prescribe a suitable muscle relaxant and can check there are no underlying problems causing the cramps. Prescriptions ordered this encounter Disp Refills Start End LISINOPRIL 10 MG TABLET 90 t* 1 08/12/2017 Route: ORAL Sig: Take 1 tablet by mouth once daily. ATORVASTATIN 10 MG TABLET 90 t* 1 08/12/2017 Route: ORAL Sig: Take 1 tablet by mouth daily at bedtime. For cholesterol. AMLODIPINE 5 MG TABLET 90 t* 1 08/12/2017 Route: ORAL Sig: Take 1 tablet by mouth once daily. HYDROCHLOROTHIAZIDE 25 MG TABLET 90 t* 1 08/12/2017 Route: ORAL Sig: Take 0.5 tablets by mouth once daily. PHENAZOPYRIDINE 200 MG TABLET 6 ta* 0 08/12/2017 08/14/2017 Route: ORAL Sig: Take 1 tablet by mouth three times daily as needed for up to 2 days. NITROFURANTOIN MONOHYDRATE AND MACROCR* 14 c* 0 08/12/2017 08/19/2017 Route: ORAL Sig: Take 1 capsule by mouth twice daily with meals for 7 days. Medications Discontinued During This Encounter nystatin (MYCOSTATIN) powder 1 Robert* 0 08/01/2016 08/12/2017 Route: TOPICAL Sig: Apply 1 application to affected area twice daily. Disc: Reason for discontinue is not on file. lisinopril (ZESTRIL, PRINIVIL) 10 mg* 90 t* 1 05/27/2017 08/12/2017 Route: ORAL Sig: Take 1 tablet by mouth once daily. Disc: Reason for discontinue is not on file. atorvastatin (LIPITOR) 10 mg tablet 90 t* 1 05/27/2017 08/12/2017 Route: ORAL Sig: Take 1 tablet by mouth daily at bedtime. For cholesterol. Disc: Reason for discontinue is not on file. amLODIPine (NORVASC) 5 mg tablet 30 t* 5 05/01/2017 08/12/2017 Route: ORAL Sig: Take 1 tablet by mouth once daily. Disc: Reason for discontinue is not on file. hydroCHLOROthiazide (HYDRODIURIL, ES* 90 t* 1 04/17/2017 08/12/2017 Class: Med Update Route: ORAL Sig: Take 0.5 tablets by mouth once daily. Disc: Reason for discontinue is not on file. Encounter Status:Closed by Rodríguez CAMPBELL PA-C on 08/12/17 ALLERGIES ALLERGIES DATE TYPE / CODE NAME / CODE REACTION SEVERITY SOURCE 06/26/2018 Drug meperidine mental status [place] Sarah Allergy/416 HCl/[id number](RXNO change Community [facility] ED CT) Repository 06/26/2018 Drug morphine/[id number] mental status [place] Allergy/416 (RXNORM) change Community 178458(SNOM [facility] ED CT) Repository 01/28/2018 DRUG MORPHINE Vomiting [facility] INGREDI/[address] [place] 140687(SNOM Repository ED CT) 08/11/2014 DRUG LEVOFLOXACIN GI UPSET [facility] INGREDI/[address] [place] 579423(SNOM Repository ED CT) 07/11/2005 DRUG/205462 MEPERIDINE (PF) Mental Chg [facility] 003(SNOMED [place] CT) Repository ENCOUNTERS ENCOUNTERS ADMIT/DISCHARGE ACCOUNT ADMITTING ENCOUNTER LOCATION SOURCE NUMBER CLASS 06/26/2018/06/29/20 [id number] Ambulatory [address] [place] Repository 06/26/2018/06/26/20 [id number] Ambulatory BMSBuilding:Marline Smith 18 MS.[facility] Repository 06/19/2018 [id number] Ambulatory BMSBuilding:Marline Smith MS.CF.[facility] Repository 06/19/2018 [id number] Ambulatory [facility] ing:[facility] Repository 06/04/2018/06/04/20 [id number] Ambulatory [address] Main [place] Repository 06/04/2018/06/05/20 [id number] Ambulatory [address] [place] Repository 05/29/2018/05/29/20 [id number] Ambulatory [address] [place] Repository 03/17/2018/03/18/20 [id number] Ambulatory [address] [place] Repository 02/26/2018/02/28/20 [id number] Ambulatory [address] [place] Repository 02/09/2018/02/11/20 [id number] Ambulatory [address] [place] Repository 02/09/2018/02/10/20 [id number] Ambulatory [address] [place] Repository 02/05/2018/02/07/20 [id number] Ambulatory [address] [place] Repository 01/28/2018/01/30/20 [id number] Ambulatory [address] [place] Repository 01/28/2018/01/29/20 [id number] Ambulatory [address] [place] Repository 01/27/2018/01/28/20 [id number] CELIO MOISE [facility] Repository 10/31/2017 [id number] Ambulatory BMSBuilding:[place]o [place]aza[place] [facility] Repository 10/31/2017 [id number] Ambulatory [facility] ing:LAB Repository 10/09/2017/10/11/19 [id number] Ambulatory [address] Repository 10/09/2017/10/10/19 [id number] Ambulatory [address] Repository 09/29/2017/09/30/19 [id number] Ambulatory [address] Repository 09/29/2017/09/30/19 [id number] Ambulatory [address] Repository 09/25/2017/09/30/19 [id number] Ambulatory [address] Repository 09/18/2017/09/24/19 [id number] Ambulatory [address] Repository 09/03/2017 [id number] Ambulatory [facility] Repository 09/03/2017/09/03/19 [id number] Ambulatory [address] Repository 08/27/2017/08/27/19 [id number] Emergency [address] ing:ED Repository 08/12/2017/08/12/19 [id number] Ambulatory [address] Repository PAYERS PAYERS ENCOUNTER GUARANTOR PAYER SUBSCRIBER SOURCE 06/26/2018 DEBBIE Bates Primary Insurance:ZAHRA [id number] [facility] Number: [id number] [place], [id number] [place]ository [place] [address]Idg: Date:2010-31-37TY [address] [place] [address] (FS) [address]WP: 06/26/2018 Secondary NOT GIVENUNK Sarah Insurance:SELF PAY [facility] Number: Effective Repository Date:2018-06-25 06/19/2018 DEBBIE Bates Primary Insurance:ZAHRA Perazaoster [id number] [facility] Number: [id number], [id number] [place] [address]Rpq: Date:4288-69-18AE [address] [place] [address] () [address]IL: 06/19/2018 Secondary NOT GIVENUNK [place] Insurance:SELF PAY [facility] Number: Effective Repository Date:2018-06-19 06/19/2018 DEBBIE Jana Primary Insurance:ZAHRALT DEBBIE [id number] [facility]LY [facility] HEALTH [facility] KEDOB: [facility] Number: [id number] [facility], [id number] Repository [place] [address]Xka: Date:[id number], [place] () [address]AR: 06/19/2018 Secondary NOT GIVENUNK Sarah Insurance:SELF PAY [facility] Number: Effective Repository Date:2018-06-15 01/27/2018 DEBBIE AYALAB: Primary DEBBIE THOMPSON: Zheng Garcia [id number] Insurance:PRIMETIME [id number] [facility] [place], OUTPATIENTPolicy [place], Repository [place] [address]Rvx: Number: [place] [address] [id number] () Date:Plan Name:P1 10/31/2017 Debbie [id number] Primary Insurance:ZAHRA Debbie AyalaB: [facility]ALTH [facility] [id number] [facility] Number: [facility] [address]Cvw: [id number] Repository Date:0387-54-52AK [address] () [address] [address]RK: 10/31/2017 Secondary NOT GIVENUNK Sarah Insurance:SELF PAY [facility] Number: Effective Repository Date:2017-10-31 10/31/2017 Debbie [id number] Primary Insurance:ZAHRALT Debbie AyalaB: [facility] [id number] [facility] Number: [facility] [id number]: [id number] Repository Date:0324-36-48YJ [address] () [address] [address]KS: 10/31/2017 Secondary NOT GIVENUNK [place] Insurance:SELF PAY [facility] Number: Effective Repository Date:2017-10-31 08/27/2017 Debbie [id number] Primary Insurance:ZAHRA AyalaB: [place] [facility] [id number] [facility] Number: [facility] [id number]: [id number] Repository Date:2798-46-07UN [address] () [address] [address]NT: 08/27/2017 Secondary NOT GIVENUNK [place] Insurance:SELF PAY [facility] Number: Effective Repository Date:2017-08-27
== END ==
PROVIDERS: Family Provider Family Medicine; PCP Family Medicine; Referring Provider Surgery; Visit Provider Surgery
DX: I65.23 Occlusion and stenosis of bilateral carotid arteries (principal)
CPT/HCPCS: 93880

== ENCOUNTER 2018-09-25 05:29 | Inpatient (IN) | payer MEDICARE, SELFPAY ==
[2018-06-26 16:48] VITALS: BMI 40.7
[2018-09-25] VITALS (11 sets, daily range): BP systolic 144–176; BP diastolic 56–68; PULSE 65–87; RESP 17–24; TEMP 36.8–37.8; O2SAT 93–96; BMI 42.6; BMI 42.1
--- NOTE | 2018-09-25 06:02 | RAD_ITS ---
STUDY: X-RAY CHEST REASON FOR EXAM: Female, 83 years old. Cough TECHNIQUE: Single frontal view of the chest. COMPARISON: 07/30/2014 FINDINGS: Stable scarring in the left midlung. There is no demonstrated pleural abnormality. Stable cardiomediastinal silhouette. Normal mediastinum and tomasa. Normal visualized pulmonary arteries. Normal visualized aortic arch and descending thoracic aorta. Normal visualized thoracic spine. Normal visualized ribs, clavicles, and shoulders. There is no demonstrated abnormality of the visualized soft tissue structures of the upper abdomen. RAD/Chest 1 View (Portable) IMPRESSION: No acute pulmonary findings. Electronically Signed: Philip Voss MD at 6:36 EST Tel , Service support ,
[2018-09-25] MEDS: Ipratropium/Albuterol Sulfate 3 ML AMPUL.NEB INHALATION ×2 (06:18→19:11)
--- NOTE | 2018-09-25 06:31 | ED.RN ---
2L NASAL CANNULA APPLIED ,PULSE OX WENT IN TO THE UPPER 80'S.
[2018-09-25 06:38] LABS: Absolute Lymphocyte Count 1.32 X10^3/ul (0.83-4.51); Anion Gap 9 (5-15); BUN 20 mg/dL (7-18); BUN/Creat Ratio 17.5 RATIO (10-20); Basophil# 0.04 X10^3/uL; Basophil% 0.3 % (0-1); Chloride 106 mmol/L (98-107); Creatinine, Serum 1.14 mg/dL (0.55-1.02); EST Glomerular Filtration Rate 49 mL/min (>60); Eosinophils% 2.1 % (0-5); Est Glom Filt Rate - Afr Amer 59 mL/min (>60); Estimated Creatinine Clearance 30.09 ml/min; Glucose 205 mg/dL (74-106); Hematocrit 38.7 % (37-47); Hemoglobin 12.7 g/dl (12.0-15.0); Lymphocyte # 1.32 X10^3/ul (4.0); Lymphocyte % 9.3 % (19-41); Mean Corp Hgb Conc 32.8 g/gl (32-36); Mean Corpuscular Hgb 29.6 pg (27.0-32.0); Mean Corpuscular Volume 90.2 fL (81-99); Mean Platelet Vol. 10.2 fl (6.2-12.0); Monocyte# 1.55 X10^3/uL; Monocyte% 10.9 % (0-10); Neutrophil # 10.99 X10^3/uL (2.7-7.7); Platelet Count 223 K/mm3 (150-450); Potassium 4.2 mmol/L (3.5-5.1); RBC Distribution Width CV 13.7 % (11.6-14.6); RBC Distribution Width SD 45.1 fl (35.1-43.9); Red Blood Count 4.29 M/mm3 (4.2-5.4); Sodium Level 138 mmol/L (136-145); White Blood Count 14.3 K/mm3 (4.4-11.0)
[2018-09-25 06:39] LABS: Differential Indicated SCAN CRITERIA MET; POSITIVE COUNT NO; POSITIVE DIFFERENTIAL YES; POSITIVE MORPHOLOGY NO
--- NOTE | 2018-09-25 07:12 | ED.DCSUM_ITS ---
- ER Visit Summary Date of Service: 09/25/18 Chief Complaint: Flu History of Present Illness: The patient is a 83 F with concern for flu or pneumonia. Her symptoms started gradually 4 days ago. She has a sore throat, headache, cough, and fever. Nothing seems to make her symptoms better or worse. They seem to be gradually getting worse over the past 4 days. She denies any chest pain. Denies any recent illnesses or hospitalizations. She has a history of diabetes and hypertension. She lives alone. Physical Examination: Afebrile and vitals unremarkable except for a blood pressure of 174/68. Patient is alert and oriented. She exhibits a dry cough, but she is moving, breathing without any objective distress. HEENT exam unremarkable. Airway patent. Heart regular rate and rhythm. Lungs clear bilaterally. Abdomen soft and nontender. Legs nontender. No edema. Test Results: White count 14.3, glucose 205, BUN 20, creatinine 1.14. Rapid flu was negative. Chest x-ray showed no acute process. Emergency Department Course and Treatment: Patient presents with infectious symptoms and respiratory symptoms. She was treated with a DuoNeb while awaiting results. She had a white count of 14.3 but otherwise her labs were all fairly unremarkable. Flu test was negative. An x-ray was negative. On reevaluation, she had a temperature of 100. Blood pressure was 158/50. Heart rate 81. 95% on room air. She still felt ill. She was ambulated on room air and dropped to 87%. She felt short of breath. She denied chest pain or any other symptoms. I suspect she has a viral illness. I am also concerned about her hypoxia. I ordered a dose of Solu-Medrol. I called the hospitalist to admit. He requested to check a urinalysis. Results are pending at the time of this dictation. No further recommendations at this time. She will be observed. Treatment Plan: As above Disposition: Admission Impression: 1. Hypoxia 2. Viral illness This note was generated with Spotwise dictation software. It may contain incorrect words, spelling, and punctuation that were not noted in review of the chart prior to signing ED Disposition - Plan for ED Patient: Referrals: Philip Todd MD [Primary Care Provider] -
[2018-09-25] MEDS: MethylPREDNISolone 125 MG/2 ML Vial IV (07:27)
--- NOTE | 2018-09-25 10:45 | CASEMGMT ---
RN BRIGID Face to Face with patient for initial transition planning/care coordination assessment. RN CM introduced self and role at [facility]. Patient lying in bed, alert and oriented. Patient willing to participate in assessment and is able to answer all questions appropriately. Care providers, pharmacy, and demographics verified. Patient wishes to discharge home, denies need for home health at this time, therapy pending. Patient states she has no further needs or concerns at this time. CM to follow for discharge planning needs that may arise. PCP: Peyton Specialists: lj Modi Pharmacy: [facility] Insurance: [employer] Prescription Benefit: Yes Living Will/HPOA: Yes, son Paul Matthew LNOK: Son, daughter, grandson Living Arrangements: Patient lives alone but states she has grandson staying with her. Patient states she is independent at home. Transportation: self/family DME/HHC: Patient states she has raised toilet, cane, grab bars, walker at home. Denied home oxygen, bipap, cpap, or nebulizer. Patient denies any previous SNF. Has had [facility] HHC in the past. Patient is agreeable [facility] [place]. Disposition Plan: Home with family support and follow-up plans in place. Will monitor therapy and need for home oxygen and HHC. Latonia ATWOOD, RN, CM
[2018-09-25] MEDS: predniSONE 20 MG Tablet 40 MG PO (11:25)
[2018-09-25] MEDS: Enoxaparin 40 MG/0.4 ML Syringe SC (11:25)
[2018-09-25 11:30] LABS: Bedside Glucose 172 mg/dL (70-110)
[2018-09-25 12:54] LABS: Pathologist Review Reviewed
--- NOTE | 2018-09-25 12:54 | PCM.HP.STD ---
Problem List (1) Hypoxia Status: Acute (2) Bilateral carotid artery stenosis Status: Chronic (3) Body aches Status: Acute (4) Cough Status: Acute (5) Malaise Status: Acute History of Present Illness Date of Admission: 09/25/18 Chief Complaint: Cough, fever, malaise The patient is a 83 year old F with a PMH as below who presented after 4 days of sore throat, fever, cough, body aches. She did not go to an urgent care or her PCP during this time, and she does live alone. In the ER she was found to have an elevated white count of 14.3 however her rapid flu was negative and her chest x-ray was also negative. She was initially oxygenating 95% on room air however when the ER staff got her up to ambulate her pulse ox dropped to 87 and she was placed on oxygen. She denies any history of COPD or asthma, however she was given a dose of Solu-Medrol in the ER, a UA is currently pending to evaluate as another source of possible infection. Past Medical History Past Medical History (Chronic Problems): Chronic Problems (Last Updated 06/26/18 @ 13:10 by Norma Ribeiro) Bilateral carotid artery stenosis (Chronic) Medical History: Medical History (Last Updated 06/26/18 @ 13:10 by Norma Ribeiro) Bilateral carotid artery stenosis (Chronic) I65.23 Bilateral extracranial carotid artery stenosis I65.23 GERD (gastroesophageal reflux disease) K21.9 Hyperlipidemia E78.5 HTN (hypertension) I10 Allergies morphine Adverse Reaction (Intermediate, Verified 09/25/18 05:42) mental status change meperidine HCl [From Demerol] Adverse Reaction (Mild, Verified 09/25/18 05:42) mental status change Home Medications: Ambulatory Orders Medication Instructions Recorded Ascorbic Acid [Vitamin C] 500 mg PO DAILY@79907/29/14 Calcium Carb/Vitamin D [Os-Syd 1 tab PO DAILY@79907/29/14 500MG + D] Cimetidine [Tagamet Hb] 300 mg PO DAILY 07/29/14 Latanoprost 0.005% [Xalatan 1 drp EACH EYE QHS 07/29/14 Opthalmic] Lisinopril [Zestril] 10 mg PO DAILY 07/29/14 [place]-3 Fatty Acids/Fish Oil 1 ea PO DAILY 07/29/14 [[place] 3 1,000 mg Softgel] Nateglinide [Starlix] 60 mg PO TID 08/27/17 aspirin 81 mg chewable tablet 81 mg PO .qod tab 06/26/18 cinnamon bark 500 mg capsule 500 mg PO DAILY cap 06/26/18 metoprolol succinate ER 50 mg 50 mg PO DAILY 06/26/18 tablet,extended release 24 hr Surgical History: Surgical History (Last Updated 06/26/18 @ 13:10 by Norma Ribeiro) History of cataract extraction Z98.49 History of cholecystectomy Z90.49 History of hysterectomy Z90.710 History of umbilical hernia repair Z98.890, Z87.19 Surgical History: cataract, cholecystectomy, hysterectomy Psychiatric History: No pertinent psych hx [employer] 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 Smoking Status: Never smoker - *Family History Paternal Family History: Family History (Last Updated 06/26/18 @ 13:11 by Norma Ribeiro) Brother Diabetes Heart disease Hypertension Colon cancer Mother Hypertension History Items: Heart Disease Maternal Family History: Family History (Last Updated 06/26/18 @ 13:11 by Norma Ribeiro) Brother Diabetes Heart disease Hypertension Colon cancer Mother Hypertension History Items: No pertinent history Sibling Family History: Family History (Last Updated 06/26/18 @ 13:11 by Norma Ribeiro) Brother Diabetes Heart disease Hypertension Colon cancer Mother Hypertension History Items: Cancer Review of Systems Constitutional: Reports: Fever, Malaise HEENT: Reports: Sore Throat. Denies: Head Aches, Sinus Congestion, Sinus Drainage Cardiovascular: Denies: Chest Pain, Palpitations Respiratory: Reports: Cough. Denies: Shortness of Breath, Shortness of breath at rest, Sputum production Gastrointestinal: Denies: Abdominal Pain, Nausea, Vomiting Genitourinary: Denies: Dysuria Musculoskeletal: Denies: Joint Pain, Joint Tenderness Skin: Denies: Rash, Wounds Neurological: Denies: Numbness, Tingling, Focal weakness Psychiatric: Denies: Anxiety, Depression Hematologic/ Lymphatic: Denies: Easy Bruising, Easy Bleeding VTE Information - Inpt Only VTE Present on Admission: No Patient Problems: Active and Suspected Problems (Last Updated 06/26/18 @ 13:10 by Norma Ribeiro) Hypoxia (Acute) - Physical Exam General: Alert, Oriented x3, Cooperative, No apparent distress HEENT: Atraumatic, PERRLA, EOMI, Normocephalic Oral: Moist Mucosa Neck: Supple, No JVD Lungs: Clear to auscultation, Normal air movement, No rhonchi, No wheeze, No rales Cardiovascular: Regular rate, Regular Rhythm, Normal S1, Normal S2, No murmurs Abdomen: Soft, Non Tender, Non-Distended, No Hepato-splenomegaly Extremities: No edema, Capillary Refill Less than 3 Seconds Skin: No rashes, No breakdown Neurological: Neuro grossly intact, Sensory exam intact to light touch and pain Psych/Mental Status: Normal Affect, Appropriate Vital Signs Temp Pulse Resp BP Pulse Ox 99.3 F H 73 20 H 144/57 H 94 09/25/18 08:21 09/25/18 08:21 09/25/18 08:21 09/25/18 08:21 09/25/18 08:21 Oxygen Flow Rate (L/min) 2 Oxygen Delivery Method Nasal Cannula Weight: 230 lb 4.8 oz Body Mass Index (BMI) 42.1 Microbiology Past 72 Hours 09/25/18 06:12 Influenza Types A,B Direct FA (RIVERA) - Final Mucosa - Nose Laboratory Tests Past 24 Hrs 09/25/18 09/25/18 06:15 06:15 WBC 14.3 H RBC 4.29 Hgb 12.7 Hct 38.7 MCV 90.2 MCH 29.6 MCHC 32.8 RDW 13.7 RDW Differential 45.1 H Plt Count 223 MPV 10.2 Immature Gran % (Auto) 0.400 Neut % (Auto) 77.0 H Lymph % (Auto) 9.3 L [place] % (Auto) 10.9 H Eos % (Auto) 2.1 Baso % (Auto) 0.3 Absolute Neuts (auto) 11.0 H Absolute Lymphs (auto) 1.32 Total Counted Not Reportable Diff Path Review Reviewed Sodium 138 Potassium 4.2 Chloride 106 Carbon Dioxide 23.0 Anion Gap 9 BUN 20 H Creatinine 1.14 H Estim Creat Clear Calc 30.09 Est GFR (MDRD) Af Amer 59 L Est GFR (MDRD) Non-Af 49 L BUN/Creatinine Ratio 17.5 Glucose 205 H Calcium 9.0 POC Glucose 09/25/18 11:22 POC Glucose 172 H Assessment/Plan All Active Problems (Last Updated 06/26/18 @ 13:10 by Norma Ribeiro) Hypoxia (Acute) Body aches (Acute) Cough (Acute) Malaise (Acute) 1. Hypoxic respiratory failure secondary to probable respiratory viral illness -We will continue with oral prednisone and DuoNeb -IV fluids at 75 -UA pending to workup her leukocytosis though this is likely a viral syndrome. 2. HTN/HLD -Blood pressures are stable -we will continue with her home medication of metoprolol and lisinopril 3. DM 2 -She is maintained at home on Starlix -We will hold and transition to sliding scale insulin with Accu-Cheks 4. Glaucoma -Stable -Continue with latanoprost DVT: Lovenox Code Visit OBSV E&M: 37771 Initial observation care L3
[2018-09-25] MEDS: 0.9% Normal Saline 1,000 ML 75 ML IV (14:33)
[2018-09-25 16:45] LABS: Bedside Glucose 227 mg/dL (70-110)
[2018-09-25] MEDS: Insulin Lispro 100 UNIT/ML INSULN.PEN SQ ×2 (16:46→21:21)
[2018-09-25] MEDS: guaiFENesin Dm 10 ML UDC 5 ML PO (17:46)
[2018-09-25 19:05] LABS: Mucous, Urine 0 SEEN /hpf (<or=2+); Red Blood Cells-Urine 0 SEEN /hpf (0-5); White Blood Cells 0 SEEN /hpf (0-5)
[2018-09-25 19:07] LABS: Color, Urine Yellow (Yellow); Glucose, Dipstick 250 mg/dl (Normal); Ketone-Dipstick Negative (Negative); Leukocyte Esterase-Dipstick Negative /ul (Negative); Nitrite-Dipstick Negative (Negative); Occult Blood-Urine 10 /ul (Negative); Protein-Dipstick 30 mg/dl (Negative); Urine Bilirubin Dipstick Negative (Negative); Urine Clarity Clear (Clear); Urine Urobilinogen Normal (Normal)
[2018-09-25 19:14] LABS: Bacteria 0 SEEN /hpf (None Seen); Squamous Epithelial Cells - UA 5-10 SEEN /hpf (5-10)
[2018-09-25] MEDS: Latanoprost 0.005% 1 Bottle 1 DRP EACH EYE (21:21)
[2018-09-25 22:16] LABS: Bedside Glucose 292 mg/dL (70-110)
[2018-09-26] VITALS (10 sets, daily range): BP systolic 114–181; BP diastolic 46–65; PULSE 69–90; RESP 14–20; TEMP 36.6–36.8; O2SAT 89–97
[2018-09-26] MEDS: 0.9% Normal Saline 1,000 ML 75 ML IV ×2 (03:39→16:58)
[2018-09-26] MEDS: Insulin Lispro 100 UNIT/ML INSULN.PEN SQ ×4 (06:40→22:44)
[2018-09-26] MEDS: Ipratropium/Albuterol Sulfate 3 ML AMPUL.NEB INHALATION ×4 (06:41→19:21)
[2018-09-26 06:46] LABS: Bedside Glucose 183 mg/dL (70-110)
[2018-09-26 06:51] LABS: Absolute Lymphocyte Count 1.29 X10^3/ul (0.83-4.51); Absolute Neutrophil Count 9.6 X10^3/uL (2.0-7.7); Basophil# 0.01 X10^3/uL; Basophil% 0.1 % (0-1); Hematocrit 37.4 % (37-47); Hemoglobin 12.1 g/dl (12.0-15.0); Lymphocyte # 1.29 X10^3/ul (4.0); Lymphocyte % 10.6 % (19-41); Mean Corp Hgb Conc 32.4 g/gl (32-36); Mean Corpuscular Hgb 29.4 pg (27.0-32.0); Mean Corpuscular Volume 90.8 fL (81-99); Mean Platelet Vol. 10.3 fl (6.2-12.0); Monocyte# 1.22 X10^3/uL; Neutrophil # 9.56 X10^3/uL (2.7-7.7); Neutrophil % 78.8 % (47-70); Platelet Count 217 K/mm3 (150-450); RBC Distribution Width CV 13.6 % (11.6-14.6); RBC Distribution Width SD 44.1 fl (35.1-43.9); Red Blood Count 4.12 M/mm3 (4.2-5.4); White Blood Count 12.1 K/mm3 (4.4-11.0)
[2018-09-26 06:56] LABS: POSITIVE COUNT NO; POSITIVE DIFFERENTIAL NO; POSITIVE MORPHOLOGY NO
[2018-09-26 07:02] LABS: Anion Gap 7 (5-15); BUN 26 mg/dL (7-18); BUN/Creat Ratio 24.1 RATIO (10-20); Calcium,Total 8.7 mg/dL (8.5-10.1); Chloride 110 mmol/L (98-107); Creatinine, Serum 1.08 mg/dL (0.55-1.02); EST Glomerular Filtration Rate 52 mL/min (>60); Est Glom Filt Rate - Afr Amer 62 mL/min (>60); Estimated Creatinine Clearance 31.76 ml/min; Glucose 189 mg/dL (74-106); Potassium 4.5 mmol/L (3.5-5.1); Sodium Level 140 mmol/L (136-145)
[2018-09-26] MEDS: guaiFENesin Dm 10 ML UDC 5 ML PO (08:01)
[2018-09-26] MEDS: Metoprolol(XL)Succ 50 MG Tablet PO (10:08)
[2018-09-26] MEDS: Calcium Carb/Vitamin D 1 TABLET Tablet PO (10:08)
[2018-09-26] MEDS: Aspirin 81 MG TAB.CHEW PO (10:08)
[2018-09-26] MEDS: predniSONE 20 MG Tablet 40 MG PO (10:09)
[2018-09-26] MEDS: Enoxaparin 40 MG/0.4 ML Syringe SC (10:09)
[2018-09-26] MEDS: Lisinopril 10 MG Tablet PO (10:09)
[2018-09-26] MEDS: Famotidine 20 MG Tablet PO (10:09)
[2018-09-26] MEDS: Ascorbic Acid 500 MG Tablet PO (10:09)
--- NOTE | 2018-09-26 12:06 | PN_ITS ---
Patient Problems: Active and Suspected Problems (Last Updated 06/26/18 @ 13:10 by Norma Ribeiro) Hypoxia (Acute) Subjective: Coughing a little bit less and is now a little bit productive with yellow sputum. Breathing a little bit easier, has slight rib pain when coughing Vitals/I&O's: Vital Signs Temp Pulse Resp BP Pulse Ox 98.2 F 90 16 145/52 H 94 09/26/18 08:59 09/26/18 10:08 09/26/18 08:59 09/26/18 08:59 09/26/18 08:59 Oxygen Flow Rate (L/min) 2 Oxygen Delivery Method Nasal Cannula Weight: 230 lb 4.8 oz Body Mass Index (BMI) 42.1 Intake and Output for Last 24 Hours 09/24/18 09/25/18 09/26/18 23:59 23:59 23:59 Intake Total 803 / 803 414 / 414 Output Total 100 / 100 Balance 803 / 803 314 / 314 General: Alert, Oriented x3, Cooperative, No apparent distress HEENT: Atraumatic, PERRLA, EOMI, Normocephalic Oral: Moist Mucosa Neck: Supple, No JVD Lungs: Clear to auscultation, Normal air movement, No rhonchi, No wheeze, No rales Cardiovascular: Regular rate, Regular Rhythm, Normal S1, Normal S2, No murmurs Abdomen: Soft, Non Tender, Non-Distended, No Hepato-splenomegaly Extremities: No edema, Capillary Refill Less than 3 Seconds Skin: No rashes, No breakdown Neurological: Neuro grossly intact, Sensory exam intact to light touch and pain Psych/Mental Status: Normal Affect, Appropriate Microbiology Past 72 Hours 09/25/18 06:12 Mucosa - Nose Influenza Types A,B Direct FA (RIVERA) - Final Laboratory Results 09/25/18 06:15: Diff Path Review Reviewed 09/25/18 16:38: POC Glucose 227 H 09/25/18 18:58: Urine Color Yellow, Urine Clarity Clear, Urine pH 5.0, Ur Specific [place] 1.020, Urine Protein 30 H, Urine Glucose (UA) 250 H, Urine Ketones Negative, Urine Occult Blood 10 H, Urine Nitrite Negative, Urine Bilirubin Negative, Urine Urobilinogen Normal, Ur Leukocyte Esterase Negative, Urine RBC 0 SEEN, Urine WBC 0 SEEN, Ur Squamous Epith Cells 5-10 SEEN, Urine Bacteria 0 SEEN, Urine Mucus 0 SEEN 09/25/18 21:19: POC Glucose 292 H 09/26/18 06:30: WBC 12.1 H, RBC 4.12 L, Hgb 12.1, Hct 37.4, MCV 90.8, MCH 29.4, MCHC 32.4, RDW 13.6, RDW Differential 44.1 H, Plt Count 217, MPV 10.3, Immature Gran % (Auto) 0.500, Neut % (Auto) 78.8 H, Lymph % (Auto) 10.6 L, [place] % (Auto) 10.0, Eos % (Auto) 0.0, Baso % (Auto) 0.1, Absolute Neuts (auto) 9.6 H, Absolute Lymphs (auto) 1.29, Total Counted Not Reportable 09/26/18 06:30: Sodium 140, Potassium 4.5, Chloride 110 H, Carbon Dioxide 23.0, Anion Gap 7, BUN 26 H, Creatinine 1.08 H, Estim Creat Clear Calc 31.76, Est GFR (MDRD) Af Amer 62, Est GFR (MDRD) Non-Af 52 L, BUN/Creatinine Ratio 24.1 H, Glucose 189 H, Calcium 8.7 09/26/18 06:38: POC Glucose 183 H Current Medications Albuterol/Ipratropium (Duoneb) 3 ml INHALATION Q4HWA.RT [facility] Last Admin: 09/26/18 10:57 Dose: 3 ml Ascorbic Acid (Vitamin C) 500 mg PO DAILY@0800 [facility] Last Admin: 09/26/18 10:09 Dose: 500 mg Aspirin (Aspirin, Baby) 81 mg PO QODAY@0800 [facility] Last Admin: 09/26/18 10:08 Dose: 81 mg Calcium/Vitamin D (Os-Syd 500mg + D) 1 tablet PO DAILY@0800 [facility] Last Admin: 09/26/18 10:08 Dose: 1 tablet Dextrose (D50w Syringe) 0 gm IV X1 PRN; Protocol PRN Reason: Hypoglycemia Enoxaparin Sodium (Lovenox) 40 mg SC DAILY@1000 [facility] Last Admin: 09/26/18 10:09 Dose: 40 mg Famotidine (Pepcid) 20 mg PO DAILY [facility] Last Admin: 03/09/19 10:09 Dose: 20 mg Glucagon () 1 mg IM .X1 PRN PRN Reason: Hypoglycemia Guaifenesin (Robitussin Dm) 5 ml PO Q6H PRN PRN PRN Reason: COUGH Last Admin: 09/26/18 08:01 Dose: 5 ml Sodium Chloride () 1,000 mls @ 75 mls/hr IV .[id number] [facility] Last Admin: 09/26/18 03:39 Dose: 75 mls/hr Insulin Human Lispro (Humalog Kwikpen (Bkc)) 0 unit SQ ACHS [facility]; Protocol Last Admin: 09/26/18 06:40 Dose: 2 units Latanoprost (Xalatan Opthalmic) 1 drop EACH EYE QHS [facility] Last Admin: 09/25/18 21:21 Dose: 1 drop Lisinopril (Zestril) 10 mg PO DAILY [facility] Last Admin: 09/26/18 10:09 Dose: 10 mg Magnesium Hydroxide (Milk Of Magnesia) 30 ml PO DAILY PRN PRN PRN Reason: Constipation Metoprolol Succinate (Toprol Xl (Beta Yenny)) 50 mg PO DAILY [facility] Last Admin: 09/26/18 10:08 Dose: 50 mg Prednisone () 40 mg PO DAILY@0800 [facility] Last Admin: 09/26/18 10:09 Dose: 40 mg Sodium Chloride () 5 - 15 ml IV UD PRN PRN Reason: SALINE FLUSH Medical Necessity - Tobacco Use Smoking Status: Never smoker Assessment/Plan All Active Problems (Last Updated 06/26/18 @ 13:10 by Norma Ribeiro) Hypoxia (Acute) Body aches (Acute) Cough (Acute) Malaise (Acute) 1. Hypoxic respiratory failure secondary to probable respiratory viral illness -We will continue with oral prednisone and DuoNeb -IV fluids at 75 -UA is unremarkable 2. HTN/HLD -Blood pressures are stable -we will continue with her home medication of metoprolol and lisinopril 3. DM 2 -She is maintained at home on Starlix -We will hold and transition to sliding scale insulin with Accu-Cheks 4. Glaucoma -Stable -Continue with latanoprost DVT: Lovenox Code Visit OBSV E&M: 49717 Initial observation care L2
[2018-09-26 12:11] LABS: Bedside Glucose 204 mg/dL (70-110)
[2018-09-26 16:55] LABS: Bedside Glucose 229 mg/dL (70-110)
[2018-09-26] MEDS: Latanoprost 0.005% 1 Bottle 1 DRP EACH EYE (22:36)
[2018-09-27] VITALS (12 sets, daily range): BP systolic 166–218; BP diastolic 67–110; PULSE 78–107; RESP 16–24; TEMP 36.4–36.8; O2SAT 94–97
[2018-09-27 00:15] LABS: Bedside Glucose 236 mg/dL (70-110)
[2018-09-27] MEDS: Ipratropium/Albuterol Sulfate 3 ML AMPUL.NEB INHALATION ×5 (03:27→19:26)
[2018-09-27] MEDS: cloNIDine HCl 0.1 MG Tablet PO (04:30)
[2018-09-27 06:41] LABS: Bedside Glucose 129 mg/dL (70-110)
[2018-09-27] MEDS: Metoprolol(XL)Succ 50 MG Tablet PO (06:51)
[2018-09-27] MEDS: Lisinopril 10 MG Tablet PO (06:51)
--- NOTE | 2018-09-27 06:52 | NURSING ---
Gave Metoprolol 50mg & Lisinopril 10mg early d/t increase in BP. Catapres 0.1 mg given @ 0430 with partial effect. Passing on to dayshift nurse
[2018-09-27] MEDS: 0.9% Normal Saline 1,000 ML 75 ML IV (07:22)
[2018-09-27] MEDS: Calcium Carb/Vitamin D 1 TABLET Tablet PO (07:50)
[2018-09-27] MEDS: Ascorbic Acid 500 MG Tablet PO (07:50)
[2018-09-27] MEDS: Famotidine 20 MG Tablet PO (07:50)
[2018-09-27] MEDS: predniSONE 20 MG Tablet 40 MG PO (07:50)
[2018-09-27] MEDS: Enoxaparin 40 MG/0.4 ML Syringe SC (07:51)
--- NOTE | 2018-09-27 10:56 | RAD_ITS ---
STUDY: X-RAY CHEST REASON FOR EXAM: Female, 83 years old. Cough TECHNIQUE: Frontal and lateral COMPARISON: 09/25/2018 FINDINGS: Mild central pulmonary vascular congestion with central and basilar interstitial thickening redemonstrated with trace volume pleural effusions (the latter best seen on lateral view). No pneumothorax. There is mild cardiac enlargement. Normal mediastinum and tomasa. Normal visualized aortic arch and descending thoracic aorta. Normal visualized thoracic spine. Normal visualized ribs, clavicles, and shoulders. There is no demonstrated abnormality of the visualized soft tissue structures of the upper abdomen. RAD/Chest PA and Lateral IMPRESSION: 1. Mild CHF lower lobe edema and trace volume effusions. No substantial interval change accounting for variation in technique. Electronically Signed: Ifeanyi Pizano MD at 15:10 EDT , Service support ,
--- NOTE | 2018-09-27 11:20 | PN_ITS ---
Patient Problems: Active and Suspected Problems (Last Updated 06/26/18 @ 13:10 by Norma Ribeiro) Hypoxia (Acute) Subjective: Increased shortness of breath overnight as well and is elevated blood pressure the need to be treated with clonidine, she does state that she feels worse than she did yesterday Vitals/I&O's: Vital Signs Temp Pulse Resp BP Pulse Ox 97.6 F L 87 18 185/92 H 94 09/27/18 07:58 09/27/18 07:58 09/27/18 07:58 09/27/18 07:58 09/27/18 07:58 Oxygen Flow Rate (L/min) 3 Oxygen Delivery Method Nasal Cannula Weight: 230 lb 4.8 oz Body Mass Index (BMI) 42.1 Intake and Output for Last 24 Hours 09/25/18 09/26/18 09/28/18 23:59 23:59 00:59 Intake Total 803 / 803 1424 / 1424 2617 / 2617 Output Total 100 / 100 Balance 803 / 803 1324 / 1324 2617 / 2617 General: Alert, Oriented x3, Cooperative, HEENT: Atraumatic, PERRLA, EOMI, Normocephalic Oral: Moist Mucosa Neck: Supple, No JVD Lungs: Clear to auscultation, Normal air movement, crackles in her right lung base more than left with occasional wheeze Cardiovascular: Tachycardic, Regular Rhythm, Normal S1, Normal S2, No murmurs Abdomen: Soft, Non Tender, Non-Distended, No Hepato-splenomegaly Extremities: No edema, Capillary Refill Less than 3 Seconds Skin: No rashes, No breakdown Neurological: Neuro grossly intact, Sensory exam intact to light touch and pain Psych/Mental Status: Normal Affect, Appropriate Microbiology Past 72 Hours 09/25/18 06:12 Mucosa - Nose Influenza Types A,B Direct FA (RIVERA) - Final Laboratory Results 09/26/18 12:02: POC Glucose 204 H 09/26/18 16:51: POC Glucose 229 H 09/26/18 22:43: POC Glucose 236 H 09/27/18 06:34: POC Glucose 129 H Current Medications Albuterol/Ipratropium (Duoneb) 3 ml INHALATION Q4HWA.RT [facility] Last Admin: 09/27/18 10:53 Dose: 3 ml Ascorbic Acid (Vitamin C) 500 mg PO DAILY@0800 [facility] Last Admin: 09/27/18 07:50 Dose: 500 mg Aspirin (Aspirin, Baby) 81 mg PO QODAY@0800 [facility] Last Admin: 09/26/18 10:08 Dose: 81 mg Calcium/Vitamin D (Os-Syd 500mg + D) 1 tablet PO DAILY@0800 [facility] Last Admin: 09/27/18 07:50 Dose: 1 tablet Dextrose (D50w Syringe) 0 gm IV X1 PRN; Protocol PRN Reason: Hypoglycemia Enoxaparin Sodium (Lovenox) 40 mg SC DAILY@1000 [facility] Last Admin: 09/27/18 07:51 Dose: 40 mg Famotidine (Pepcid) 20 mg PO DAILY [facility] Last Admin: 09/27/18 07:50 Dose: 20 mg Glucagon () 1 mg IM .X1 PRN PRN Reason: Hypoglycemia Guaifenesin (Robitussin Dm) 5 ml PO Q6H PRN PRN PRN Reason: COUGH Last Admin: 09/26/18 08:01 Dose: 5 ml Sodium Chloride () 1,000 mls @ 75 mls/hr IV .[id number] [facility] Last Admin: 09/27/18 07:22 Dose: 75 mls/hr Levofloxacin (Levaquin Iv) 750 mg in 150 mls @ 100 mls/hr IV Q48 [facility] Insulin Human Lispro (Humalog Kwikpen (Bkc)) 0 unit SQ ACHS [facility]; Protocol Last Admin: 09/27/18 06:36 Dose: Not Given Latanoprost (Xalatan Opthalmic) 1 drop EACH EYE QHS [facility] Last Admin: 09/26/18 22:36 Dose: 1 drop Lisinopril (Zestril) 10 mg PO DAILY [facility] Last Admin: 09/27/18 06:51 Dose: 10 mg Magnesium Hydroxide (Milk Of Magnesia) 30 ml PO DAILY PRN PRN PRN Reason: Constipation Metoprolol Succinate (Toprol Xl (Beta Yenny)) 50 mg PO DAILY [facility] Last Admin: 09/27/18 06:51 Dose: 50 mg Prednisone () 40 mg PO DAILY@0800 [facility] Last Admin: 09/27/18 07:50 Dose: 40 mg Sodium Chloride () 5 - 15 ml IV UD PRN PRN Reason: SALINE FLUSH Medical Necessity - Tobacco Use Smoking Status: Never smoker Assessment/Plan All Active Problems (Last Updated 06/26/18 @ 13:10 by Norma Ribeiro) Hypoxia (Acute) Body aches (Acute) Cough (Acute) Malaise (Acute) 1. Hypoxic respiratory failure secondary to probable respiratory viral illness/possible right lower lobe pneumonia -We will continue with oral prednisone and DuoNeb -IV fluids at 75 -UA is unremarkable -Continue crackles and wheezing, will obtain a chest x-ray and initiate Levaquin . -Yesterday she looked very well and just did not want to go home and therefore labs are not obtained for this morning, given her deterioration overnight will obtain labs today 2. HTN/HLD -Blood pressures were elevated above 200 overnight she was given a dose of clonidine. -we will continue with her home medication of metoprolol and lisinopril, and will monitored throughout the day if she continues to be elevated can add as needed clonidine. 3. DM 2 -She is maintained at home on Starlix -We will hold and transition to sliding scale insulin with Accu-Cheks 4. Glaucoma -Stable -Continue with latanoprost DVT: Lovenox Code Visit Inpatient E&M: 31193 Subs Hosp L3
[2018-09-27] MEDS: Insulin Lispro 100 UNIT/ML INSULN.PEN SQ ×2 (11:30→16:36)
[2018-09-27 11:36] LABS: Bedside Glucose 239 mg/dL (70-110)
[2018-09-27 12:19] LABS: Absolute Lymphocyte Count 0.89 X10^3/ul (0.83-4.51); Absolute Neutrophil Count 12.7 X10^3/uL (2.0-7.7); Basophil# 0.02 X10^3/uL; Basophil% 0.1 % (0-1); Eosinophil# 0.01 X10^3/uL; Eosinophils% 0.1 % (0-5); Hematocrit 38.3 % (37-47); Hemoglobin 12.5 g/dl (12.0-15.0); Lymphocyte # 0.89 X10^3/ul (4.0); Lymphocyte % 6.1 % (19-41); Mean Corp Hgb Conc 32.6 g/gl (32-36); Mean Corpuscular Hgb 29.9 pg (27.0-32.0); Mean Corpuscular Volume 91.6 fL (81-99); Mean Platelet Vol. 10.2 fl (6.2-12.0); Monocyte# 0.94 X10^3/uL; Monocyte% 6.4 % (0-10); Neutrophil # 12.65 X10^3/uL (2.7-7.7); Neutrophil % 86.3 % (47-70); Platelet Count 234 K/mm3 (150-450); RBC Distribution Width SD 45.8 fl (35.1-43.9); Red Blood Count 4.18 M/mm3 (4.2-5.4); White Blood Count 14.7 K/mm3 (4.4-11.0)
[2018-09-27 12:22] LABS: POSITIVE COUNT NO; POSITIVE DIFFERENTIAL NO; POSITIVE MORPHOLOGY NO
[2018-09-27 12:25] LABS: Anion Gap 10 (5-15); BUN 28 mg/dL (7-18); BUN/Creat Ratio 28.1 RATIO (10-20); Calcium,Total 8.7 mg/dL (8.5-10.1); Chloride 109 mmol/L (98-107); EST Glomerular Filtration Rate 57 mL/min (>60); Est Glom Filt Rate - Afr Amer 69 mL/min (>60); Glucose 245 mg/dL (74-106); Potassium 4.5 mmol/L (3.5-5.1); Sodium Level 141 mmol/L (136-145)
[2018-09-27] MEDS: levoFLOXacin IV 750 MG/150 ML BAG 100 MG IV (15:12)
[2018-09-27] MEDS: 0.9% NaCl Peripheral Flush Adult/Peds IV ×2 (15:12→17:11)
[2018-09-27 16:56] LABS: Bedside Glucose 191 mg/dL (70-110)
[2018-09-27] MEDS: Furosemide 40 MG/4 ML Vial IV (17:11)
[2018-09-27] MEDS: Latanoprost 0.005% 1 Bottle 1 DRP EACH EYE (22:41)
[2018-09-27 22:51] LABS: Bedside Glucose 99 mg/dL (70-110)
[2018-09-28] VITALS (15 sets, daily range): BP systolic 133–231; BP diastolic 47–89; PULSE 71–99; RESP 16–20; TEMP 36.5–37.2; O2SAT 91–96
[2018-09-28] MEDS: hydrALAZINE 20 MG/ML Vial 5 MG IV (01:08)
[2018-09-28] MEDS: guaiFENesin Dm 10 ML UDC 5 ML PO ×4 (01:15→21:35)
[2018-09-28] MEDS: hydrALAZINE 20 MG/ML Vial 10 MG IV (04:18)
[2018-09-28] MEDS: cloNIDine HCl 0.1 MG Tablet PO (05:04)
[2018-09-28] MEDS: Furosemide 40 MG/4 ML Vial IV (05:42)
[2018-09-28 06:18] LABS: Anion Gap 10 (5-15); BUN 27 mg/dL (7-18); Calcium,Total 9.2 mg/dL (8.5-10.1); Chloride 103 mmol/L (98-107); EST Glomerular Filtration Rate 56 mL/min (>60); Est Glom Filt Rate - Afr Amer 68 mL/min (>60); Glucose 143 mg/dL (74-106); Sodium Level 138 mmol/L (136-145)
[2018-09-28 06:46] LABS: Absolute Lymphocyte Count 2.38 X10^3/ul (0.83-4.51); Absolute Neutrophil Count 10.7 X10^3/uL (2.0-7.7); Basophil# 0.04 X10^3/uL; Basophil% 0.3 % (0-1); Eosinophil# 0.11 X10^3/uL; Eosinophils% 0.7 % (0-5); Hematocrit 41.2 % (37-47); Hemoglobin 13.4 g/dl (12.0-15.0); Lymphocyte # 2.38 X10^3/ul (4.0); Lymphocyte % 15.7 % (19-41); Mean Corp Hgb Conc 32.5 g/gl (32-36); Mean Corpuscular Hgb 29.1 pg (27.0-32.0); Mean Corpuscular Volume 89.6 fL (81-99); Monocyte# 1.71 X10^3/uL; Monocyte% 11.3 % (0-10); Neutrophil # 10.71 X10^3/uL (2.7-7.7); Neutrophil % 70.7 % (47-70); Platelet Count 267 K/mm3 (150-450); RBC Distribution Width CV 13.9 % (11.6-14.6); RBC Distribution Width SD 45.6 fl (35.1-43.9); White Blood Count 15.1 K/mm3 (4.4-11.0)
[2018-09-28 06:52] LABS: Differential Indicated SCAN CRITERIA MET; POSITIVE COUNT NO; POSITIVE DIFFERENTIAL YES; POSITIVE MORPHOLOGY YES
[2018-09-28] MEDS: Ipratropium/Albuterol Sulfate 3 ML AMPUL.NEB INHALATION ×4 (07:23→18:55)
[2018-09-28] MEDS: Acetaminophen 325 MG Tablet 650 MG PO (08:18)
[2018-09-28] MEDS: Ascorbic Acid 500 MG Tablet PO (08:19)
[2018-09-28] MEDS: Calcium Carb/Vitamin D 1 TABLET Tablet PO (08:19)
[2018-09-28] MEDS: Lisinopril 20 MG Tablet PO (08:19)
[2018-09-28] MEDS: Aspirin 81 MG TAB.CHEW PO (08:19)
[2018-09-28] MEDS: Metoprolol(XL)Succ 50 MG Tablet PO (08:19)
[2018-09-28] MEDS: predniSONE 20 MG Tablet PO (08:19)
--- NOTE | 2018-09-28 08:38 | NURSING ---
poor cough hygiene- placed in droplet precautions.
--- NOTE | 2018-09-28 09:28 | CT_ITS ---
STUDY: CT CHEST WITHOUT CONTRAST REASON FOR EXAM: Female, 83 years old. RADIATION DOSAGE (If Supplied By Facility): CTDIvol = ( 30.35 ) mGy, DLP = ( 879.04 ) mGycm TECHNIQUE: Transaxial imaging was performed without the administration of intravenous contrast material. Individualized dose optimization techniques were used for this CT. COMPARISON: None. FINDINGS: There are small bilateral pleural effusions with bibasilar atelectasis and/or infiltrates. There are calcifications of the coronary arteries. Cardiomegaly. There are multiple small lymph nodes within the mediastinum, which are normal in size and morphology most compatible with reactive lymph hyperplasia. Normal hilar regions. Normal unenhanced pulmonary arteries. There is atherosclerotic calcification of the aortic arch with tortuosity and elongation of the aortic arch and descending thoracic aorta. There are multi-level degenerative changes of the thoracic spine. Small hiatal hernia. CT/Chest without Contrast IMPRESSION: Small bilateral pleural effusions with bibasilar infiltration and/or atelectasis. Coronary artery calcification. Electronically Signed: Reid Hernandez, at 14:20 EDT , Service support ,
--- NOTE | 2018-09-28 09:31 | PCM.PN.HOSP ---
Patient Problems: Active and Suspected Problems (Last Updated 06/26/18 @ 13:10 by Norma Ribeiro) Hypoxia (Acute) Subjective: Patient is an 83-year-old lady admitted with past medical history of hypertension diabetes mellitus type 2 dyslipidemia who presented with progressive shortness of breath. An assessment of acute hypoxic respiratory failure secondary to suspected right lower lobe pneumonia made patient admitted to regular nursing floor for further management Objective: GENERAL: cooperative HEENT: Atraumatic; moist oral mucosa EYES; Anicteric, Normal Conjunctiva NECK; supple, normal thyroid, no distended JVD. RESPIRATORY: Diminished to auscultation bilaterally, CARDIOVASCULAR: Regular S1 S2, no audible murmurs GI: soft, non-tender, normoactive bowel sounds, : No Renal angle tenderness; EXTREMITIES: No edema, no clubbing, no cyanosis. MUSCULOSKELETAL: No Joint Tenderness; no muscle waisting NEURO: Awake; no lateralizing signs. SKIN: No Rash PSYCH;flat affect Vitals/I&O's: Vital Signs Temp Pulse Resp BP Pulse Ox 98.0 F 96 20 H 151/68 H 94 09/28/18 06:41 09/28/18 08:19 09/28/18 07:23 09/28/18 06:41 09/28/18 07:23 Oxygen Flow Rate (L/min) 3 Oxygen Delivery Method Nasal Cannula Weight: 104.462 kg Body Mass Index (BMI) 42.1 Intake and Output for Last 24 Hours 09/26/18 09/27/18 09/28/18 22:59 23:59 23:59 Intake Total 600 / 600 Output Total 550 / 550 Balance 50 / 50 Microbiology Past 72 Hours 09/25/18 06:12 Mucosa - Nose Influenza Types A,B Direct FA (RIVERA) - Final Laboratory Results 09/27/18 11:29: POC Glucose 239 H 09/27/18 11:54: WBC 14.7 H, RBC 4.18 L, Hgb 12.5, Hct 38.3, MCV 91.6, MCH 29.9, MCHC 32.6, RDW 14.0, RDW Differential 45.8 H, Plt Count 234, MPV 10.2, Immature Gran % (Auto) 1.000 H, Neut % (Auto) 86.3 H, Lymph % (Auto) 6.1 L, [place] % (Auto) 6.4, Eos % (Auto) 0.1, Baso % (Auto) 0.1, Absolute Neuts (auto) 12.7 H, Absolute Lymphs (auto) 0.89, Total Counted Not Reportable 09/27/18 11:54: Sodium 141, Potassium 4.5, Chloride 109 H, Carbon Dioxide 22.0, Anion Gap 10, BUN 28 H, Creatinine 1.00, Estim Creat Clear Calc 34.30, Est GFR (MDRD) Af Amer 69, Est GFR (MDRD) Non-Af 57 L, BUN/Creatinine Ratio 28.1 H, Glucose 245 H, Calcium 8.7 09/27/18 16:35: POC Glucose 191 H 09/27/18 22:37: POC Glucose 99 09/28/18 05:30: WBC 15.1 H, RBC 4.60, Hgb 13.4, Hct 41.2, MCV 89.6, MCH 29.1, MCHC 32.5, RDW 13.9, RDW Differential 45.6 H, Plt Count 267, MPV 10.0, Immature Gran % (Auto) 1.300 H, Neut % (Auto) 70.7 H, Lymph % (Auto) 15.7 L, [place] % (Auto) 11.3 H, Eos % (Auto) 0.7, Baso % (Auto) 0.3, Absolute Neuts (auto) 10.7 H, Absolute Lymphs (auto) 2.38, Total Counted Not Reportable, Diff Path Review November09/28/18 05:30: Sodium 138, Potassium 4.0, Chloride 103, Carbon Dioxide 25.0, Anion Gap 10, BUN 27 H, Creatinine 1.00, Estim Creat Clear Calc 34.30, Est GFR (MDRD) Af Amer 68, Est GFR (MDRD) Non-Af 56 L, BUN/Creatinine Ratio 27.0 H, Glucose 143 H, Calcium 9.2 Current Medications Acetaminophen (Tylenol) 650 mg PO Q6H PRN PRN PRN Reason: HEADACHE Last Admin: 09/28/18 08:18 Dose: 650 mg Albuterol/Ipratropium (Duoneb) 3 ml INHALATION Q4HWA.RT [facility] Last Admin: 09/28/18 07:23 Dose: 3 ml Ascorbic Acid (Vitamin C) 500 mg PO DAILY@0800 [facility] Last Admin: 09/28/18 08:19 Dose: 500 mg Aspirin (Aspirin, Baby) 81 mg PO QODAY@0800 [facility] Last Admin: 09/28/18 08:19 Dose: 81 mg Calcium/Vitamin D (Os-Syd 500mg + D) 1 tablet PO DAILY@0800 [facility] Last Admin: 09/28/18 08:19 Dose: 1 tablet Clonidine (Catapres) 0.1 mg PO Q6H PRN PRN PRN Reason: Systolic BP > 160 Last Admin: 09/28/18 05:04 Dose: 0.1 mg Dextrose (D50w Syringe) 0 gm IV X1 PRN; Protocol PRN Reason: Hypoglycemia Enoxaparin Sodium (Lovenox) 40 mg SC DAILY@1000 [facility] Last Admin: 09/27/18 07:51 Dose: 40 mg Famotidine (Pepcid) 20 mg PO DAILY [facility] Last Admin: 09/27/18 07:50 Dose: 20 mg Glucagon () 1 mg IM .X1 PRN PRN Reason: Hypoglycemia Guaifenesin (Robitussin Dm) 5 ml PO Q6H PRN PRN PRN Reason: COUGH Last Admin: 09/28/18 08:18 Dose: 5 ml Guaifenesin (Mucinex) 1,200 mg PO BID [facility] Hydralazine HCl (Apresoline Iv) 10 mg IV Q4H PRN PRN PRN Reason: SBP > 160 Last Admin: 09/28/18 04:18 Dose: 10 mg Levofloxacin (Levaquin Iv) 750 mg in 150 mls @ 100 mls/hr IV Q48 [facility] Last Admin: 09/27/18 15:12 Dose: 100 mls/hr Insulin Human Lispro (Humalog Kwikpen (Bkc)) 0 unit SQ ACHS [facility]; Protocol Last Admin: 09/28/18 05:51 Dose: Not Given Latanoprost (Xalatan Opthalmic) 1 drop EACH EYE QHS [facility] Last Admin: 09/27/18 22:41 Dose: 1 drop Lisinopril (Zestril) 20 mg PO DAILY [facility] Last Admin: 09/28/18 08:19 Dose: 20 mg Magnesium Hydroxide (Milk Of Magnesia) 30 ml PO DAILY PRN PRN PRN Reason: Constipation Metoprolol Succinate (Toprol Xl (Beta Yenny)) 50 mg PO DAILY [facility] Last Admin: 09/28/18 08:19 Dose: 50 mg Prednisone () 20 mg PO DAILY@0800 [facility] Last Admin: 09/28/18 08:19 Dose: 20 mg Sodium Chloride () 5 - 15 ml IV UD PRN PRN Reason: SALINE FLUSH Last Admin: 09/27/18 17:11 Dose: 10 ml Medical Necessity - Tobacco Use Smoking Status: Never smoker Assessment/Plan All Active Problems (Last Updated 06/26/18 @ 13:10 by Norma Ribeiro) Hypoxia (Acute) Body aches (Acute) Cough (Acute) Malaise (Acute) Patient is an 83-year-old lady admitted with past medical history of hypertension diabetes mellitus type 2 dyslipidemia who presented with progressive shortness of breath. An assessment of acute hypoxic respiratory failure secondary to suspected right lower lobe pneumonia made patient admitted to regular nursing floor for further management 1. Acute respiratory insufficiency suspected to be secondary to acute viral bronchitis as well as suspected right lower lobe pneumonia patient placed on aerosol treatment, p.o. prednisone in addition to Levaquin. In view of patient then cough CT of the chest ordered for subsequent evaluation. Also repeated acute viral respiratory panel 2. Hypertension-blood pressure controlled, home medications continued with dose adjustment as needed 3. Dyslipidemia per history patient not on any statin therapy 4. Diabetes mellitus type II: Controlled, patient's oral hypoglycemics held. Placed on long acting insulin, Accu-Cheks a.c. and at bedtime and covered with sliding scale insulin 5. Hypertension-blood pressure controlled, home medications continued with dose adjustment as needed 6. Morbid obesity with BMI of 42.4 7. Glaucoma 8. DVT prophylaxis SC Lovenox Advance planning; did discuss with the patient and family regarding advanced directives as well as CODE STATUS. Did explain the various scenarios involved ( FULL CODE, DNR CCA, DNR CCA with no intubation, and DNR CC and what each meant) patient was emphatic she wanted to remain DNR CCA no intubation. Order was placed. Time spent on discussion 18 minutes. Active Medications Acetaminophen (Tylenol) 650 mg PO Q6H PRN PRN PRN Reason: HEADACHE Last Admin: 09/28/18 08:18 Dose: 650 mg Albuterol/Ipratropium (Duoneb) 3 ml INHALATION Q4HWA.RT [facility] Last Admin: 09/28/18 07:23 Dose: 3 ml Ascorbic Acid (Vitamin C) 500 mg PO DAILY@0800 [facility] Last Admin: 09/28/18 08:19 Dose: 500 mg Aspirin (Aspirin, Baby) 81 mg PO QODAY@0800 [facility] Last Admin: 09/28/18 08:19 Dose: 81 mg Calcium/Vitamin D (Os-Syd 500mg + D) 1 tablet PO DAILY@0800 [facility] Last Admin: 09/28/18 08:19 Dose: 1 tablet Clonidine (Catapres) 0.1 mg PO Q6H PRN PRN PRN Reason: Systolic BP > 160 Last Admin: 09/28/18 05:04 Dose: 0.1 mg Dextrose (D50w Syringe) 0 gm IV X1 PRN; Protocol PRN Reason: Hypoglycemia Enoxaparin Sodium (Lovenox) 40 mg SC DAILY@1000 [facility] Last Admin: 09/27/18 07:51 Dose: 40 mg Famotidine (Pepcid) 20 mg PO DAILY [facility] Last Admin: 09/27/18 07:50 Dose: 20 mg Glucagon () 1 mg IM .X1 PRN PRN Reason: Hypoglycemia Guaifenesin (Robitussin Dm) 5 ml PO Q6H PRN PRN PRN Reason: COUGH Last Admin: 09/28/18 08:18 Dose: 5 ml Guaifenesin (Mucinex) 1,200 mg PO BID [facility] Hydralazine HCl (Apresoline Iv) 10 mg IV Q4H PRN PRN PRN Reason: SBP > 160 Last Admin: 09/28/18 04:18 Dose: 10 mg Levofloxacin (Levaquin Iv) 750 mg in 150 mls @ 100 mls/hr IV Q48 [facility] Last Admin: 09/27/18 15:12 Dose: 100 mls/hr Insulin Human Lispro (Humalog Kwikpen (Bkc)) 0 unit SQ ACHS [facility]; Protocol Last Admin: 09/28/18 05:51 Dose: Not Given Latanoprost (Xalatan Opthalmic) 1 drop EACH EYE QHS [facility] Last Admin: 09/27/18 22:41 Dose: 1 drop Lisinopril (Zestril) 20 mg PO DAILY [facility] Last Admin: 09/28/18 08:19 Dose: 20 mg Magnesium Hydroxide (Milk Of Magnesia) 30 ml PO DAILY PRN PRN PRN Reason: Constipation Metoprolol Succinate (Toprol Xl (Beta Yenny)) 50 mg PO DAILY [facility] Last Admin: 09/28/18 08:19 Dose: 50 mg Prednisone () 20 mg PO DAILY@0800 [facility] Last Admin: 09/28/18 08:19 Dose: 20 mg Sodium Chloride () 5 - 15 ml IV UD PRN PRN Reason: SALINE FLUSH Last Admin: 09/27/18 17:11 Dose: 10 ml Clinical Impression(s) from Imaging Studies Chest X-Ray 09/27/18 10:56 IMPRESSION: 1. Mild CHF lower lobe edema and trace volume effusions. No substantial interval change accounting for variation in technique. Electronically Signed: Ifeanyi Pizano MD at 15:10 EDT , Service support , Code Visit Inpatient E&M: 00327 Subs Hosp L3
--- NOTE | 2018-09-28 09:38 | PN_ITS ---
Patient Problems: Active and Suspected Problems (Last Updated 06/26/18 @ 13:10 by Norma Ribeiro) Hypoxia (Acute) Subjective: Patient is an 83-year-old lady admitted with past medical history of hypertension diabetes mellitus type 2 dyslipidemia who presented with progressive shortness of breath. An assessment of acute hypoxic respiratory failure secondary to suspected right lower lobe pneumonia made patient admitted to regular nursing floor for further management Objective: GENERAL: cooperative HEENT: Atraumatic; moist oral mucosa EYES; Anicteric, Normal Conjunctiva NECK; supple, normal thyroid, no distended JVD. RESPIRATORY: Diminished to auscultation bilaterally, CARDIOVASCULAR: Regular S1 S2, no audible murmurs GI: soft, non-tender, normoactive bowel sounds, : No Renal angle tenderness; EXTREMITIES: No edema, no clubbing, no cyanosis. MUSCULOSKELETAL: No Joint Tenderness; no muscle waisting NEURO: Awake; no lateralizing signs. SKIN: No Rash PSYCH;flat affect Vitals/I&O's: Vital Signs Temp Pulse Resp BP Pulse Ox 98.0 F 96 20 H 151/68 H 94 09/28/18 06:41 09/28/18 08:19 09/28/18 07:23 09/28/18 06:41 09/28/18 07:23 Oxygen Flow Rate (L/min) 3 Oxygen Delivery Method Nasal Cannula Weight: 104.462 kg Body Mass Index (BMI) 42.1 Intake and Output for Last 24 Hours 09/26/18 09/27/18 09/28/18 22:59 23:59 23:59 Intake Total 600 / 600 Output Total 550 / 550 Balance 50 / 50 Microbiology Past 72 Hours 09/25/18 06:12 Mucosa - Nose Influenza Types A,B Direct FA (RIVERA) - Final Laboratory Results 09/27/18 11:29: POC Glucose 239 H 09/27/18 11:54: WBC 14.7 H, RBC 4.18 L, Hgb 12.5, Hct 38.3, MCV 91.6, MCH 29.9, MCHC 32.6, RDW 14.0, RDW Differential 45.8 H, Plt Count 234, MPV 10.2, Immature Gran % (Auto) 1.000 H, Neut % (Auto) 86.3 H, Lymph % (Auto) 6.1 L, Callahan % (Auto) 6.4, Eos % (Auto) 0.1, Baso % (Auto) 0.1, Absolute Neuts (auto) 12.7 H, Absolute Lymphs (auto) 0.89, Total Counted Not Reportable 09/27/18 11:54: Sodium 141, Potassium 4.5, Chloride 109 H, Carbon Dioxide 22.0, Anion Gap 10, BUN 28 H, Creatinine 1.00, Estim Creat Clear Calc 34.30, Est GFR (MDRD) Af Amer 69, Est GFR (MDRD) Non-Af 57 L, BUN/Creatinine Ratio 28.1 H, Glucose 245 H, Calcium 8.7 09/27/18 16:35: POC Glucose 191 H 09/27/18 22:37: POC Glucose 99 09/28/18 05:30: WBC 15.1 H, RBC 4.60, Hgb 13.4, Hct 41.2, MCV 89.6, MCH 29.1, MCHC 32.5, RDW 13.9, RDW Differential 45.6 H, Plt Count 267, MPV 10.0, Immature Gran % (Auto) 1.300 H, Neut % (Auto) 70.7 H, Lymph % (Auto) 15.7 L, Callahan % (Auto) 11.3 H, Eos % (Auto) 0.7, Baso % (Auto) 0.3, Absolute Neuts (auto) 10.7 H , Absolute Lymphs (auto) 2.38, Total Counted Not Reportable, Diff Path Review November09/28/18 05:30: Sodium 138, Potassium 4.0, Chloride 103, Carbon Dioxide 25.0, Anion Gap 10, BUN 27 H, Creatinine 1.00, Estim Creat Clear Calc 34.30, Est GFR (MDRD) Af Amer 68, Est GFR (MDRD) Non-Af 56 L, BUN/Creatinine Ratio 27.0 H, Glucose 143 H, Calcium 9.2 Current Medications Acetaminophen (Tylenol) 650 mg PO Q6H PRN PRN PRN Reason: HEADACHE Last Admin: 09/28/18 08:18 Dose: 650 mg Albuterol/Ipratropium (Duoneb) 3 ml INHALATION Q4HWA.RT [facility] Last Admin: 09/28/18 07:23 Dose: 3 ml Ascorbic Acid (Vitamin C) 500 mg PO DAILY@0800 [facility] Last Admin: 09/28/18 08:19 Dose: 500 mg Aspirin (Aspirin, Baby) 81 mg PO QODAY@0800 [facility] Last Admin: 09/28/18 08:19 Dose: 81 mg Calcium/Vitamin D (Os-Syd 500mg + D) 1 tablet PO DAILY@0800 [facility] Last Admin: 09/28/18 08:19 Dose: 1 tablet Clonidine (Catapres) 0.1 mg PO Q6H PRN PRN PRN Reason: Systolic BP > 160 Last Admin: 09/28/18 05:04 Dose: 0.1 mg Dextrose (D50w Syringe) 0 gm IV X1 PRN; Protocol PRN Reason: Hypoglycemia Enoxaparin Sodium (Lovenox) 40 mg SC DAILY@1000 [facility] Last Admin: 09/27/18 07:51 Dose: 40 mg Famotidine (Pepcid) 20 mg PO DAILY [facility] Last Admin: 09/27/18 07:50 Dose: 20 mg Glucagon () 1 mg IM .X1 PRN PRN Reason: Hypoglycemia Guaifenesin (Robitussin Dm) 5 ml PO Q6H PRN PRN PRN Reason: COUGH Last Admin: 09/28/18 08:18 Dose: 5 ml Guaifenesin (Mucinex) 1,200 mg PO BID [facility] Hydralazine HCl (Apresoline Iv) 10 mg IV Q4H PRN PRN PRN Reason: SBP > 160 Last Admin: 09/28/18 04:18 Dose: 10 mg Levofloxacin (Levaquin Iv) 750 mg in 150 mls @ 100 mls/hr IV Q48 [facility] Last Admin: 09/27/18 15:12 Dose: 100 mls/hr Insulin Human Lispro (Humalog Kwikpen (Bkc)) 0 unit SQ ACHS [facility]; Protocol Last Admin: 09/28/18 05:51 Dose: Not Given Latanoprost (Xalatan Opthalmic) 1 drop EACH EYE QHS [facility] Last Admin: 09/27/18 22:41 Dose: 1 drop Lisinopril (Zestril) 20 mg PO DAILY [facility] Last Admin: 09/28/18 08:19 Dose: 20 mg Magnesium Hydroxide (Milk Of Magnesia) 30 ml PO DAILY PRN PRN PRN Reason: Constipation Metoprolol Succinate (Toprol Xl (Beta Yenny)) 50 mg PO DAILY [facility] Last Admin: 09/28/18 08:19 Dose: 50 mg Prednisone () 20 mg PO DAILY@0800 [facility] Last Admin: 09/28/18 08:19 Dose: 20 mg Sodium Chloride () 5 - 15 ml IV UD PRN PRN Reason: SALINE FLUSH Last Admin: 09/27/18 17:11 Dose: 10 ml Medical Necessity - Tobacco Use Smoking Status: Never smoker Assessment/Plan All Active Problems (Last Updated 06/26/18 @ 13:10 by Norma Ribeiro) Hypoxia (Acute) Body aches (Acute) Cough (Acute) Malaise (Acute) Patient is an 83-year-old lady admitted with past medical history of hypertension diabetes mellitus type 2 dyslipidemia who presented with progressive shortness of breath. An assessment of acute hypoxic respiratory failure secondary to suspected right lower lobe pneumonia made patient admitted to regular nursing floor for further management 1. Acute respiratory insufficiency suspected to be secondary to acute viral bronchitis as well as suspected right lower lobe pneumonia patient placed on aerosol treatment, p.o. prednisone in addition to Levaquin. In view of patient then cough CT of the chest ordered for subsequent evaluation. Also repeated acute viral respiratory panel 2. Hypertension-blood pressure controlled, home medications continued with dose adjustment as needed 3. Dyslipidemia per history patient not on any statin therapy 4. Diabetes mellitus type II: Controlled, patient's oral hypoglycemics held. Placed on long acting insulin, Accu-Cheks a.c. and at bedtime and covered with sliding scale insulin 5. Hypertension-blood pressure controlled, home medications continued with dose adjustment as needed 6. Morbid obesity with BMI of 42.4 7. Glaucoma 8. DVT prophylaxis SC Lovenox Advance planning; did discuss with the patient and family regarding advanced directives as well as CODE STATUS. Did explain the various scenarios involved ( FULL CODE, DNR CCA, DNR CCA with no intubation, and DNR CC and what each meant) patient was emphatic she wanted to remain DNR CCA no intubation. Order was placed. Time spent on discussion 18 minutes. Active Medications Acetaminophen (Tylenol) 650 mg PO Q6H PRN PRN PRN Reason: HEADACHE Last Admin: 09/28/18 08:18 Dose: 650 mg Albuterol/Ipratropium (Duoneb) 3 ml INHALATION Q4HWA.RT [facility] Last Admin: 09/28/18 07:23 Dose: 3 ml Ascorbic Acid (Vitamin C) 500 mg PO DAILY@0800 [facility] Last Admin: 09/28/18 08:19 Dose: 500 mg Aspirin (Aspirin, Baby) 81 mg PO QODAY@0800 [facility] Last Admin: 09/28/18 08:19 Dose: 81 mg Calcium/Vitamin D (Os-Syd 500mg + D) 1 tablet PO DAILY@0800 [facility] Last Admin: 09/28/18 08:19 Dose: 1 tablet Clonidine (Catapres) 0.1 mg PO Q6H PRN PRN PRN Reason: Systolic BP > 160 Last Admin: 09/28/18 05:04 Dose: 0.1 mg Dextrose (D50w Syringe) 0 gm IV X1 PRN; Protocol PRN Reason: Hypoglycemia Enoxaparin Sodium (Lovenox) 40 mg SC DAILY@1000 [facility] Last Admin: 09/27/18 07:51 Dose: 40 mg Famotidine (Pepcid) 20 mg PO DAILY [facility] Last Admin: 09/27/18 07:50 Dose: 20 mg Glucagon () 1 mg IM .X1 PRN PRN Reason: Hypoglycemia Guaifenesin (Robitussin Dm) 5 ml PO Q6H PRN PRN PRN Reason: COUGH Last Admin: 09/28/18 08:18 Dose: 5 ml Guaifenesin (Mucinex) 1,200 mg PO BID [facility] Hydralazine HCl (Apresoline Iv) 10 mg IV Q4H PRN PRN PRN Reason: SBP > 160 Last Admin: 09/28/18 04:18 Dose: 10 mg Levofloxacin (Levaquin Iv) 750 mg in 150 mls @ 100 mls/hr IV Q48 [facility] Last Admin: 09/27/18 15:12 Dose: 100 mls/hr Insulin Human Lispro (Humalog Kwikpen (Bkc)) 0 unit SQ ACHS [facility]; Protocol Last Admin: 09/28/18 05:51 Dose: Not Given Latanoprost (Xalatan Opthalmic) 1 drop EACH EYE QHS [facility] Last Admin: 09/27/18 22:41 Dose: 1 drop Lisinopril (Zestril) 20 mg PO DAILY [facility] Last Admin: 09/28/18 08:19 Dose: 20 mg Magnesium Hydroxide (Milk Of Magnesia) 30 ml PO DAILY PRN PRN PRN Reason: Constipation Metoprolol Succinate (Toprol Xl (Beta Yenny)) 50 mg PO DAILY [facility] Last Admin: 09/28/18 08:19 Dose: 50 mg Prednisone () 20 mg PO DAILY@0800 [facility] Last Admin: 09/28/18 08:19 Dose: 20 mg Sodium Chloride () 5 - 15 ml IV UD PRN PRN Reason: SALINE FLUSH Last Admin: 09/27/18 17:11 Dose: 10 ml Clinical Impression(s) from Imaging Studies Chest X-Ray 09/27/18 10:56 IMPRESSION: 1. Mild CHF lower lobe edema and trace volume effusions. No substantial interval change accounting for variation in technique. Electronically Signed: Ifeanyi Pizano MD at 15:10 EDT , Service support , Code Visit Inpatient E&M: [id number] Subs Hosp L3
[2018-09-28] MEDS: guaiFENesin 1,200 MG Tablet 1200 MG PO ×2 (11:09→21:35)
[2018-09-28] MEDS: Famotidine 20 MG Tablet PO (11:09)
[2018-09-28] MEDS: Enoxaparin 40 MG/0.4 ML Syringe SC (11:10)
[2018-09-28] MEDS: Insulin Lispro 100 UNIT/ML INSULN.PEN SQ ×2 (11:12→21:36)
[2018-09-28 11:36] LABS: Bedside Glucose 185 mg/dL (70-110)
[2018-09-28 11:36] LABS: Bedside Glucose 146 mg/dL (70-110)
[2018-09-28 17:05] LABS: Bedside Glucose 146 mg/dL (70-110)
[2018-09-28] MEDS: Latanoprost 0.005% 1 Bottle 1 DRP EACH EYE (21:35)
[2018-09-28 21:45] LABS: Bedside Glucose 171 mg/dL (70-110)
[2018-09-29] VITALS (13 sets, daily range): BP systolic 121–174; BP diastolic 39–60; PULSE 66–82; RESP 16–21; TEMP 36.6–37; O2SAT 92–97
[2018-09-29] MEDS: guaiFENesin Dm 10 ML UDC 5 ML PO ×3 (03:38→22:07)
[2018-09-29] MEDS: 0.9% NaCl Peripheral Flush Adult/Peds IV ×2 (03:39→09:27)
[2018-09-29] MEDS: hydrALAZINE 20 MG/ML Vial 10 MG IV (03:39)
[2018-09-29] MEDS: Ipratropium/Albuterol Sulfate 3 ML AMPUL.NEB INHALATION ×4 (06:38→19:12)
[2018-09-29 07:06] LABS: Bedside Glucose 117 mg/dL (70-110)
[2018-09-29 07:22] LABS: Hematocrit 38.1 % (37-47); Hemoglobin 12.4 g/dl (12.0-15.0); Mean Corp Hgb Conc 32.5 g/gl (32-36); Mean Corpuscular Hgb 29.6 pg (27.0-32.0); Mean Corpuscular Volume 90.9 fL (81-99); Mean Platelet Vol. 10.3 fl (6.2-12.0); Platelet Count 237 K/mm3 (150-450); RBC Distribution Width CV 14.2 % (11.6-14.6); RBC Distribution Width SD 46.4 fl (35.1-43.9); Red Blood Count 4.19 M/mm3 (4.2-5.4); White Blood Count 9.8 K/mm3 (4.4-11.0)
[2018-09-29 07:23] LABS: Scan Indicated on CBC? Y/N NO
[2018-09-29 08:00] LABS: Anion Gap 6 (5-15); BUN 31 mg/dL (7-18); BUN/Creat Ratio 32.7 RATIO (10-20); Calcium,Total 8.5 mg/dL (8.5-10.1); Chloride 105 mmol/L (98-107); Creatinine, Serum 0.95 mg/dL (0.55-1.02); EST Glomerular Filtration Rate 60 mL/min (>60); Est Glom Filt Rate - Afr Amer 73 mL/min (>60); Estimated Creatinine Clearance 36.11 ml/min; Glucose 114 mg/dL (74-106); Magnesium 1.7 mg/dL (1.6-2.6); Potassium 4.2 mmol/L (3.5-5.1); Sodium Level 138 mmol/L (136-145)
[2018-09-29] MEDS: Lisinopril 20 MG Tablet PO (09:27)
[2018-09-29] MEDS: Ascorbic Acid 500 MG Tablet PO (09:27)
[2018-09-29] MEDS: levoFLOXacin IV 750 MG/150 ML BAG 100 MG IV (09:27)
[2018-09-29] MEDS: Metoprolol(XL)Succ 50 MG Tablet PO (09:27)
[2018-09-29] MEDS: Famotidine 20 MG Tablet PO (09:27)
[2018-09-29] MEDS: predniSONE 20 MG Tablet PO (09:27)
[2018-09-29] MEDS: Calcium Carb/Vitamin D 1 TABLET Tablet PO (09:27)
[2018-09-29] MEDS: Enoxaparin 40 MG/0.4 ML Syringe SC (09:27)
--- NOTE | 2018-09-29 09:27 | PCM.PN.HOSP ---
Patient Problems: Active and Suspected Problems (Last Updated 06/26/18 @ 13:10 by Norma Ribeiro) Hypoxia (Acute) Subjective: Patient seen still complains of persistent cough. CT of the chest obtained the day prior demonstrated Small bilateral pleural effusions with bibasilar infiltration and/or atelectasis. Coronary artery calcification.. Patient also complains of feeling fatigued. Did discuss with patient about possibility of discharge to intermediate facility for skilled therapy prior to going home she is interested in that this was subsequently communicated to case management/socially responsible investment adviser Vital Signs Temp 98.6 F 09/29/18 08:00 Pulse 77 09/29/18 09:27 Resp 20 H 09/29/18 08:00 BP 136/55 H 09/29/18 09:27 Pulse Ox 95 09/29/18 08:00 Objective: GENERAL: cooperative appears ill looking HEENT: Atraumatic; moist oral mucosa EYES; Anicteric, Normal Conjunctiva NECK; supple, normal thyroid, no distended JVD. RESPIRATORY: Diminished to auscultation bilaterally, CARDIOVASCULAR: Regular S1 S2, no audible murmurs GI: soft, non-tender, normoactive bowel sounds, : No Renal angle tenderness; EXTREMITIES: No edema, no clubbing, no cyanosis. NEURO: Awake; no lateralizing signs. SKIN: No Rash PSYCH;flat affect Vitals/I&O's: Vital Signs Temp Pulse Resp BP Pulse Ox 98.6 F 77 20 H 136/55 H 95 09/29/18 08:00 09/29/18 08:00 09/29/18 08:00 09/29/18 08:00 09/29/18 08:00 Oxygen Flow Rate (L/min) 3 Oxygen Delivery Method Nasal Cannula Weight: 104 kg Body Mass Index (BMI) 42.1 Intake and Output for Last 24 Hours 09/27/18 09/28/18 09/29/18 23:59 23:59 23:59 Intake Total 960 / 960 Output Total 1400 / 1400 350 / 350 Balance -440 / -440 -350 / -350 Microbiology Past 72 Hours 09/28/18 11:30 Mucosa - Nasopharyngeal Influenza Types A,B Direct FA ([facility]) - Final Laboratory Results 09/28/18 05:51: POC Glucose 146 H 09/28/18 11:12: POC Glucose 185 H 09/28/18 16:37: POC Glucose 146 H 09/28/18 21:33: POC Glucose 171 H 09/29/18 06:05: WBC 9.8, RBC 4.19 L, Hgb 12.4, Hct 38.1, MCV 90.9, MCH 29.6, MCHC 32.5, RDW 14.2, RDW Differential 46.4 H, Plt Count 237, MPV 10.3 09/29/18 06:05: Sodium 138, Potassium 4.2, Chloride 105, Carbon Dioxide 27.0, Anion Gap 6, BUN 31 H, Creatinine 0.95, Estim Creat Clear Calc 36.11, Est GFR (MDRD) Af Amer 73, Est GFR (MDRD) Non-Af 60, BUN/Creatinine Ratio 32.7 H, Glucose 114 H, Calcium 8.5, Magnesium 1.7 09/29/18 06:57: POC Glucose 117 H Current Medications Acetaminophen (Tylenol) 650 mg PO Q6H PRN PRN PRN Reason: HEADACHE Last Admin: 09/28/18 08:18 Dose: 650 mg Albuterol/Ipratropium (Duoneb) 3 ml INHALATION Q4HWA.RT [facility] Last Admin: 09/29/18 06:38 Dose: 3 ml Ascorbic Acid (Vitamin C) 500 mg PO DAILY@0800 [facility] Last Admin: 09/28/18 08:19 Dose: 500 mg Aspirin (Aspirin, Baby) 81 mg PO QODAY@0800 [facility] Last Admin: 09/28/18 08:19 Dose: 81 mg Calcium/Vitamin D (Os-Syd 500mg + D) 1 tablet PO DAILY@0800 [facility] Last Admin: 09/28/18 08:19 Dose: 1 tablet Clonidine (Catapres) 0.1 mg PO Q6H PRN PRN PRN Reason: Systolic BP > 160 Last Admin: 09/28/18 05:04 Dose: 0.1 mg Dextrose (D50w Syringe) 0 gm IV X1 PRN; Protocol PRN Reason: Hypoglycemia Enoxaparin Sodium (Lovenox) 40 mg SC DAILY@1000 [facility] Last Admin: 09/28/18 11:10 Dose: 40 mg Famotidine (Pepcid) 20 mg PO DAILY [facility] Last Admin: 09/28/18 11:09 Dose: 20 mg Glucagon () 1 mg IM .X1 PRN PRN Reason: Hypoglycemia Guaifenesin (Robitussin Dm) 5 ml PO Q6H PRN PRN PRN Reason: COUGH Last Admin: 09/29/18 03:38 Dose: 5 ml Guaifenesin (Mucinex) 1,200 mg PO BID [facility] Last Admin: 09/28/18 21:35 Dose: 1,200 mg Hydralazine HCl (Apresoline Iv) 10 mg IV Q4H PRN PRN PRN Reason: SBP > 160 Last Admin: 09/29/18 03:39 Dose: 10 mg Levofloxacin (Levaquin Iv) 750 mg in 150 mls @ 100 mls/hr IV Q48 [facility] Last Admin: 09/27/18 15:12 Dose: 100 mls/hr Insulin Human Lispro (Humalog Kwikpen (Bkc)) 0 unit SQ ACHS [facility]; Protocol Last Admin: 09/29/18 07:02 Dose: Not Given Latanoprost (Xalatan Opthalmic) 1 drop EACH EYE QHS [facility] Last Admin: 09/28/18 21:35 Dose: 1 drop Lisinopril (Zestril) 20 mg PO DAILY [facility] Last Admin: 09/28/18 08:19 Dose: 20 mg Magnesium Hydroxide (Milk Of Magnesia) 30 ml PO DAILY PRN PRN PRN Reason: Constipation Metoprolol Succinate (Toprol Xl (Beta Yenny)) 50 mg PO DAILY [facility] Last Admin: 09/28/18 08:19 Dose: 50 mg Prednisone () 20 mg PO DAILY@0800 [facility] Last Admin: 09/28/18 08:19 Dose: 20 mg Sodium Chloride () 5 - 15 ml IV UD PRN PRN Reason: SALINE FLUSH Last Admin: 09/29/18 03:39 Dose: 15 ml Medical Necessity - Tobacco Use Smoking Status: Never smoker Assessment/Plan All Active Problems (Last Updated 06/26/18 @ 13:10 by Norma Ribeiro) Hypoxia (Acute) Body aches (Acute) Cough (Acute) Malaise (Acute) Patient is an 83-year-old lady admitted with past medical history of hypertension diabetes mellitus type 2 dyslipidemia who presented with progressive shortness of breath. An assessment of acute hypoxic respiratory failure secondary to suspected right lower lobe pneumonia made patient admitted to regular nursing floor for further management 1. Acute respiratory insufficiency suspected to be secondary to acute viral bronchitis as well as suspected right lower lobe pneumonia patient placed on aerosol treatment, p.o. prednisone in addition to Levaquin. In view of patient then cough CT of the chest ordered for subsequent evaluation. Also repeated acute viral respiratory panel. CT of the chest obtained the day prior demonstrated Small bilateral pleural effusions with bibasilar infiltration and/or atelectasis. Coronary artery calcification 2. Hypertension-blood pressure controlled, home medications continued with dose adjustment as needed 3. Dyslipidemia per history patient not on any statin therapy 4. Diabetes mellitus type II: Controlled, patient's oral hypoglycemics held. Placed on long acting insulin, Accu-Cheks a.c. and at bedtime and covered with sliding scale insulin 5. Hypertension-blood pressure controlled, home medications continued with dose adjustment as needed 6. Morbid obesity with BMI of 42.4 7. Glaucoma 8. DVT prophylaxis SC Lovenox 9. Physical deconditioning requested for PT OT eval and socially responsible investment adviser to assist with discharge planning possibly to intermediate facility Advance planning; did discuss with the patient and family regarding advanced directives as well as CODE STATUS. Did explain the various scenarios involved ( FULL CODE, DNR CCA, DNR CCA with no intubation, and DNR CC and what each meant) patient was emphatic she wanted to remain DNR CCA no intubation. Order was placed. Time spent on discussion 18 minutes. Clinical Impression(s) from Imaging Studies Chest CT 09/28/18 09:28 IMPRESSION: Small bilateral pleural effusions with bibasilar infiltration and/or atelectasis. Coronary artery calcification. Electronically Signed: Reid Hernandez, at 14:20 EDT , Service support , Code Visit Inpatient E&M: [id number] Subs Hosp L2
[2018-09-29] MEDS: guaiFENesin 1,200 MG Tablet 1200 MG PO ×2 (09:28→22:07)
--- NOTE | 2018-09-29 09:31 | PN_ITS ---
Patient Problems: Active and Suspected Problems (Last Updated 06/26/18 @ 13:10 by Norma Ribeiro) Hypoxia (Acute) Subjective: Patient seen still complains of persistent cough. CT of the chest obtained the day prior demonstrated Small bilateral pleural effusions with bibasilar infiltration and/or atelectasis. Coronary artery calcification.. Patient also complains of feeling fatigued. Did discuss with patient about possibility of discharge to prison facility for skilled therapy prior to going home she is interested in that this was subsequently communicated to case management/licensed social worker Vital Signs Temp 98.6 F 09/29/18 08:00 Pulse 77 09/29/18 09:27 Resp 20 H 09/29/18 08:00 BP 136/55 H 09/29/18 09:27 Pulse Ox 95 09/29/18 08:00 Objective: GENERAL: cooperative appears ill looking HEENT: Atraumatic; moist oral mucosa EYES; Anicteric, Normal Conjunctiva NECK; supple, normal thyroid, no distended JVD. RESPIRATORY: Diminished to auscultation bilaterally, CARDIOVASCULAR: Regular S1 S2, no audible murmurs GI: soft, non-tender, normoactive bowel sounds, : No Renal angle tenderness; EXTREMITIES: No edema, no clubbing, no cyanosis. NEURO: Awake; no lateralizing signs. SKIN: No Rash PSYCH;flat affect Vitals/I&O's: Vital Signs Temp Pulse Resp BP Pulse Ox 98.6 F 77 20 H 136/55 H 95 09/29/18 08:00 09/29/18 08:00 09/29/18 08:00 09/29/18 08:00 09/29/18 08:00 Oxygen Flow Rate (L/min) 3 Oxygen Delivery Method Nasal Cannula Weight: 104 kg Body Mass Index (BMI) 42.1 Intake and Output for Last 24 Hours 09/27/18 09/28/18 09/29/18 23:59 23:59 23:59 Intake Total 960 / 960 Output Total 1400 / 1400 350 / 350 Balance -440 / -440 -350 / -350 Microbiology Past 72 Hours 09/28/18 11:30 Mucosa - Nasopharyngeal Influenza Types A,B Direct FA ([facility]A) - Final Laboratory Results 09/28/18 05:51: POC Glucose 146 H 09/28/18 11:12: POC Glucose 185 H 09/28/18 16:37: POC Glucose 146 H 09/28/18 21:33: POC Glucose 171 H 09/29/18 06:05: WBC 9.8, RBC 4.19 L, Hgb 12.4, Hct 38.1, MCV 90.9, MCH 29.6, MCHC 32.5, RDW 14.2, RDW Differential 46.4 H, Plt Count 237, MPV 10.3 09/29/18 06:05: Sodium 138, Potassium 4.2, Chloride 105, Carbon Dioxide 27.0, Anion Gap 6, BUN 31 H, Creatinine 0.95, Estim Creat Clear Calc 36.11, Est GFR (MDRD) Af Amer 73, Est GFR (MDRD) Non-Af 60, BUN/Creatinine Ratio 32.7 H, Glucose 114 H, Calcium 8.5, Magnesium 1.7 09/29/18 06:57: POC Glucose 117 H Current Medications Acetaminophen (Tylenol) 650 mg PO Q6H PRN PRN PRN Reason: HEADACHE Last Admin: 09/28/18 08:18 Dose: 650 mg Albuterol/Ipratropium (Duoneb) 3 ml INHALATION Q4HWA.RT [facility] Last Admin: 09/29/18 06:38 Dose: 3 ml Ascorbic Acid (Vitamin C) 500 mg PO DAILY@0800 [facility] Last Admin: 09/28/18 08:19 Dose: 500 mg Aspirin (Aspirin, Baby) 81 mg PO QODAY@0800 [facility] Last Admin: 09/28/18 08:19 Dose: 81 mg Calcium/Vitamin D (Os-Syd 500mg + D) 1 tablet PO DAILY@0800 [facility] Last Admin: 09/28/18 08:19 Dose: 1 tablet Clonidine (Catapres) 0.1 mg PO Q6H PRN PRN PRN Reason: Systolic BP > 160 Last Admin: 09/28/18 05:04 Dose: 0.1 mg Dextrose (D50w Syringe) 0 gm IV X1 PRN; Protocol PRN Reason: Hypoglycemia Enoxaparin Sodium (Lovenox) 40 mg SC DAILY@1000 [facility] Last Admin: 09/28/18 11:10 Dose: 40 mg Famotidine (Pepcid) 20 mg PO DAILY [facility] Last Admin: 09/28/18 11:09 Dose: 20 mg Glucagon () 1 mg IM .X1 PRN PRN Reason: Hypoglycemia Guaifenesin (Robitussin Dm) 5 ml PO Q6H PRN PRN PRN Reason: COUGH Last Admin: 09/29/18 03:38 Dose: 5 ml Guaifenesin (Mucinex) 1,200 mg PO BID [facility] Last Admin: 09/28/18 21:35 Dose: 1,200 mg Hydralazine HCl (Apresoline Iv) 10 mg IV Q4H PRN PRN PRN Reason: SBP > 160 Last Admin: 09/29/18 03:39 Dose: 10 mg Levofloxacin (Levaquin Iv) 750 mg in 150 mls @ 100 mls/hr IV Q48 [facility] Last Admin: 09/27/18 15:12 Dose: 100 mls/hr Insulin Human Lispro (Humalog Kwikpen (Bkc)) 0 unit SQ ACHS [facility]; Protocol Last Admin: 09/29/18 07:02 Dose: Not Given Latanoprost (Xalatan Opthalmic) 1 drop EACH EYE QHS [facility] Last Admin: 09/28/18 21:35 Dose: 1 drop Lisinopril (Zestril) 20 mg PO DAILY [facility] Last Admin: 09/28/18 08:19 Dose: 20 mg Magnesium Hydroxide (Milk Of Magnesia) 30 ml PO DAILY PRN PRN PRN Reason: Constipation Metoprolol Succinate (Toprol Xl (Beta Yenny)) 50 mg PO DAILY [facility] Last Admin: 09/28/18 08:19 Dose: 50 mg Prednisone () 20 mg PO DAILY@0800 [facility] Last Admin: 09/28/18 08:19 Dose: 20 mg Sodium Chloride () 5 - 15 ml IV UD PRN PRN Reason: SALINE FLUSH Last Admin: 09/29/18 03:39 Dose: 15 ml Medical Necessity - Tobacco Use Smoking Status: Never smoker Assessment/Plan All Active Problems (Last Updated 06/26/18 @ 13:10 by Norma Ribeiro) Hypoxia (Acute) Body aches (Acute) Cough (Acute) Malaise (Acute) Patient is an 83-year-old lady admitted with past medical history of hypertension diabetes mellitus type 2 dyslipidemia who presented with progressive shortness of breath. An assessment of acute hypoxic respiratory failure secondary to suspected right lower lobe pneumonia made patient admitted to regular nursing floor for further management 1. Acute respiratory insufficiency suspected to be secondary to acute viral bronchitis as well as suspected right lower lobe pneumonia patient placed on aerosol treatment, p.o. prednisone in addition to Levaquin. In view of patient then cough CT of the chest ordered for subsequent evaluation. Also repeated acute viral respiratory panel. CT of the chest obtained the day prior demons trated Small bilateral pleural effusions with bibasilar infiltration and/or atelectasis. Coronary artery calcification 2. Hypertension-blood pressure controlled, home medications continued with dose adjustment as needed 3. Dyslipidemia per history patient not on any statin therapy 4. Diabetes mellitus type II: Controlled, patient's oral hypoglycemics held. Placed on long acting insulin, Accu-Cheks a.c. and at bedtime and covered with sliding scale insulin 5. Hypertension-blood pressure controlled, home medications continued with dose adjustment as needed 6. Morbid obesity with BMI of 42.4 7. Glaucoma 8. DVT prophylaxis SC Lovenox 9. Physical deconditioning requested for PT OT eval and licensed social worker to assist with discharge planning possibly to prison facility Advance planning; did discuss with the patient and family regarding advanced directives as well as CODE STATUS. Did explain the various scenarios involved ( FULL CODE, DNR CCA, DNR CCA with no intubation, and DNR CC and what each meant) patient was emphatic she wanted to remain DNR CCA no intubation. Order was placed. Time spent on discussion 18 minutes. Clinical Impression(s) from Imaging Studies Chest CT 09/28/18 09:28 IMPRESSION: Small bilateral pleural effusions with bibasilar infiltration and/or atelectasis. Coronary artery calcification. Electronically Signed: Reid Hernandez, at 14:20 EDT , Service support , Code Visit Inpatient E&M: [id number] Subs Hosp L2
--- NOTE | 2018-09-29 12:21 | CASEMGMT ---
Social WorK: Spoke with SUHAS Romero who states that physician spoke with patient regarding SNF placement at D/C as patient lives alone. Met with patient in room. Patient states that she is unable to return home alone at this time due to weakness. Patient is requesting a referral be faxed to [facility]. Patient aware that pre cert will need to be obtained prior to SNF placement. TC to Heidy Capone at [facility]. Voice mail message left to call this SW regarding patient referral. Clinicals faxed. NIMA Moulton
[2018-09-29 13:25] LABS: Pathologist Review Reviewed
--- NOTE | 2018-09-29 14:38 | NURSING ---
PT SITTING UP IN CHAIR @ BS, BP 132/39. PT ASYMPTOMATIC. DR GONZALES NOTIFIED. NO NEW ORDERS. WILL MONITOR.
--- NOTE | 2018-09-29 14:59 | CASEMGMT ---
Social Work: TC from Nicolasa Bennett at [facility]. Nicolasa Bennett states that they are able to accept patient pending insurance pre cert. This SW to call [facility] for authorization. TC to Iman at [facility]. Iman states that [facility] sent clinicals and that patient is approved to be admitted. PLAN: Patient to be admitted to [facility] for skilled care when medically ready. NIMA Moulton
--- NOTE | 2018-09-29 16:20 | CASEMGMT ---
Social Work: Spoke with patient in room. Patient aware that [facility] is able to accept her and [employer] has approved admission. Will follow to assist as needed with D/C planning. NIMA Moulton
[2018-09-29 16:46] LABS: Bedside Glucose 138 mg/dL (70-110)
[2018-09-29] MEDS: Oseltamivir Phosphate 30 MG Capsule PO (22:07)
[2018-09-29] MEDS: Insulin Lispro 100 UNIT/ML INSULN.PEN SQ (22:07)
[2018-09-29] MEDS: Latanoprost 0.005% 1 Bottle 1 DRP EACH EYE (22:07)
[2018-09-30 00:16] LABS: Bedside Glucose 147 mg/dL (70-110)
[2018-09-30 03:56] LABS: Bedside Glucose 171 mg/dL (70-110)
[2018-09-30 04:20] VITALS: BP 164/73; PULSE 69; RESP 18; TEMP 36.7; O2SAT 96
[2018-09-30 05:59] LABS: Hemoglobin 12.4 g/dl (12.0-15.0); Mean Corp Hgb Conc 32.6 g/gl (32-36); Mean Corpuscular Hgb 29.7 pg (27.0-32.0); Mean Corpuscular Volume 91.1 fL (81-99); Mean Platelet Vol. 9.8 fl (6.2-12.0); Platelet Count 263 K/mm3 (150-450); RBC Distribution Width SD 46.1 fl (35.1-43.9); Red Blood Count 4.17 M/mm3 (4.2-5.4); White Blood Count 10.3 K/mm3 (4.4-11.0)
[2018-09-30 06:11] LABS: Scan Indicated on CBC? Y/N NO
[2018-09-30 06:30] LABS: Anion Gap 9 (5-15); BUN 42 mg/dL (7-18); BUN/Creat Ratio 33.3 RATIO (10-20); Calcium,Total 9.3 mg/dL (8.5-10.1); Chloride 105 mmol/L (98-107); Creatinine, Serum 1.26 mg/dL (0.55-1.02); EST Glomerular Filtration Rate 43 mL/min (>60); Est Glom Filt Rate - Afr Amer 52 mL/min (>60); Estimated Creatinine Clearance 27.23 ml/min; Glucose 124 mg/dL (74-106); Potassium 4.4 mmol/L (3.5-5.1); Sodium Level 142 mmol/L (136-145)
[2018-09-30 06:36] LABS: Bedside Glucose 120 mg/dL (70-110)
[2018-09-30 06:40] VITALS: PULSE 79; RESP 18; O2SAT 93
[2018-09-30] MEDS: Ipratropium/Albuterol Sulfate 3 ML AMPUL.NEB INHALATION ×2 (06:43→10:45)
[2018-09-30] MEDS: guaiFENesin Dm 10 ML UDC 5 ML PO (07:40)
[2018-09-30] MEDS: Ascorbic Acid 500 MG Tablet PO (07:52)
[2018-09-30] MEDS: Aspirin 81 MG TAB.CHEW PO (07:52)
[2018-09-30] MEDS: Calcium Carb/Vitamin D 1 TABLET Tablet PO (07:53)
[2018-09-30] MEDS: predniSONE 20 MG Tablet PO (07:53)
[2018-09-30 08:42] VITALS: BP 147/72; PULSE 72; RESP 18; TEMP 36.6; O2SAT 94
--- NOTE | 2018-09-30 09:50 | PCM.TXEXTCAR ---
- Diet 09/25/18 08:19 Diet: Regular Diet Food consistency:: Regular Liquid Consistency:: Regular/Thin - Routine Orders/Code Status Keep PO Greater than or Equal to (%): 90 Code Status: DNRCC-A - Therapies Physical Therapy: Eval and Treat Occupational Therapy: Eval and Treat - Allergies/Procedures Done in Hospital Allergies/Adverse Reactions: Allergies morphine Adverse Reaction (Intermediate, Verified 09/25/18 05:42) mental status change meperidine HCl [From Demerol] Adverse Reaction (Mild, Verified 09/25/18 05:42) mental status change - Type of Care/Length of Stay Estimated LOS: Convalescent Care Less Than 30 days Type of Care Needed: Skilled Rehab Potential: Good Prognosis: Good - Additional Orders/Day of Discharge Day of Discharge: 09/30/18 - Dietary and Speech Recommendations Dietitian Recommendations/Changes: Recommend change to 1800 calorie controlled diet. - Follow Up Care Primary Care Physician: Philip Todd MD [Primary Care Provider] - Please follow up with your Primary Care Physician in: IN 2-3 WEEKS
--- NOTE | 2018-09-30 09:58 | DS.PCM_ITS ---
Discharge Date and Diagnosis - Problem List Patient Problems: Active and Suspected Problems (Last Updated 06/26/18 @ 13:10 by Norma Ribeiro) Hypoxia (Acute) Date of Admission: 09/25/18 Date of Discharge: 09/30/18 - Primary Discharge Diagnosis Active and Suspected Problems (Last Updated 06/26/18 @ 13:10 by Norma Ribeiro) Influenza A infection - Secondary Discharge Diagnosis Chronic Problems (Last Updated 06/26/18 @ 13:10 by Norma Ribeiro) Bilateral carotid artery stenosis (Chronic) Hospital Course and Treatment Imaging Results: Microbiology 09/28/18 14:10 Mucosa - Nasopharyngeal Respiratory Panel (PCR) - Final Influenza A (Subtype H3) RSV B Rhinovirus Operations: None Summary of Care Provided: Patient is an 83-year-old lady admitted with past medical history of hypertension diabetes mellitus type 2 dyslipidemia who presented with progressive shortness of breath. An assessment of acute hypoxic respiratory failure secondary to suspected right lower lobe pneumonia made patient admitted to regular nursing floor for further management 1. Acute respiratory insufficiency suspected to be secondary to acute viral bronchitis with Influenza A (Subtype H3, RSV B Rhinovirus as well as suspected right lower lobe pneumonia patient placed on aerosol treatment, p.o. prednisone in addition to Levaquin. In view of patient then cough CT of the chest ordered for subsequent evaluation. Also repeated acute viral respiratory panel. CT of the chest obtained the day prior demonstrated Small bilateral pleural effusions with bibasilar infiltration and/or atelectasis. Coronary artery calcification 2. Hypertension-blood pressure controlled, home medications continued with dose adjustment as needed 3. Dyslipidemia per history patient not on any statin therapy 4. Diabetes mellitus type II: Controlled, patient's oral hypoglycemics held. Placed on long acting insulin, Accu-Cheks a.c. and at bedtime and covered with sliding scale insulin 5. Hypertension-blood pressure controlled, home medications continued with dose adjustment as needed 6. Morbid obesity with BMI of 42.4 7. Glaucoma 8. DVT prophylaxis SC Lovenox 9. Physical deconditioning requested for PT OT eval and social services manager to assist with discharge planning possibly to long-term facility Patient Problems: Active and Suspected Problems (Last Updated 06/26/18 @ 13:10 by Norma Ribeiro) Hypoxia (Acute) - Physical Exam General: Cooperative Neck: Supple Lungs: Diminished Cardiovascular: Regular rate, Regular Rhythm Neurological: Neuro grossly intact Psych/Mental Status: Normal Affect Vital Signs Temp Pulse Resp BP Pulse Ox 97.8 F 72 18 147/72 H 94 09/30/18 08:42 09/30/18 08:42 09/30/18 08:42 09/30/18 08:42 09/30/18 08:42 Oxygen Flow Rate (L/min) 2 Oxygen Delivery Method Nasal Cannula Weight: 104 kg Body Mass Index (BMI) 42.1 Intake and Output for Last 24 Hours 09/28/18 09/29/18 09/30/18 23:59 23:59 23:59 Intake Total 960 / 960 1230 / 1230 Output Total 1400 / 1400 900 / 900 Balance -440 / -440 330 / 330 Microbiology Past 72 Hours 09/28/18 14:10 Respiratory Panel (PCR) - Final Mucosa - Nasopharyngeal Influenza A (Subtype H3) RSV B Rhinovirus 09/28/18 11:30 Influenza Types A,B Direct FA (RIVERA) - Final Mucosa - Nasopharyngeal Laboratory Tests Past 24 Hrs 09/28/18 09/30/18 09/30/18 05:30 05:30 05:30 WBC 10.3 RBC 4.17 L Hgb 12.4 Hct 38.0 MCV 91.1 MCH 29.7 MCHC 32.6 RDW 14.0 RDW Differential 46.1 H Plt Count 263 MPV 9.8 Diff Path Review Reviewed Sodium 142 Potassium 4.4 Chloride 105 Carbon Dioxide 28.0 Anion Gap 9 BUN 42 H Creatinine 1.26 H Estim Creat Clear Calc 27.23 Est GFR (MDRD) Af Amer 52 L Est GFR (MDRD) Non-Af 43 L BUN/Creatinine Ratio 33.3 H Glucose 124 H Calcium 9.3 POC Glucose 09/30/18 09/29/18 09/29/18 06:32 22:03 16:27 POC Glucose 120 H 171 H 138 H 09/29/18 11:39 POC Glucose 147 H Discharge Diet: No Restrictions Home Medications: Medications to take at Discharge Ascorbic Acid [Vitamin C] 500 mg PO DAILY@0800 07/29/14 Calcium Carb/Vitamin D [Os-Syd 500MG + D] 1 tab PO DAILY@0800 07/29/14 Cimetidine [Tagamet Hb] 300 mg PO DAILY 07/29/14 Latanoprost 0.005% [Xalatan Opthalmic] 1 drp EACH EYE QHS 07/29/14 Lisinopril [Zestril] 10 mg PO DAILY 07/29/14 Hartly-3 Fatty Acids/Fish Oil [Hartly 3 1,000 mg Softgel] 1 ea PO DAILY 07/29/14 Nateglinide [Starlix] 60 mg PO TID 08/27/17 aspirin 81 mg chewable tablet 81 mg PO .qod tab 06/26/18 metoprolol succinate ER 50 mg tablet,extended release 24 hr 50 mg PO DAILY 06/26/18 Acetaminophen [Tylenol Tablet] 650 mg PO Q6H PRN PRN tablet 09/30/18 Clonidine HCl [Catapres] 0.1 mg PO Q6H PRN PRN tablet 09/30/18 Guaifenesin Dm [Robitussin Dm] 5 ml PO Q6H PRN PRN udc 09/30/18 Guaifenesin [Mucinex] 1,200 mg PO BID tablet 09/30/18 Insulin Lispro [Humalog KwikPen] See Protocol SQ ACHS insuln.pen 09/30/18 Ipratropium/Albuterol Sulfate [Duoneb] 3 ml INHALATION Q4HWA.RT ampul.neb 09/30/18 Magnesium Hydroxide [Milk Of Magnesia] 30 ml PO DAILY PRN PRN udc 09/30/18 Oseltamivir Phosphate [Tamiflu] 30 mg PO BID #8 cap 09/30/18 predniSONE tablet 20 mg PO DAILY@0800 #5 tab 09/30/18 Following Prescrptions Were Given to Patient: Oseltamivir Phosphate [Tamiflu] 30 mg PO BID #8 cap predniSONE tablet 20 mg PO DAILY@0800 #5 tab Primary Care Physician: Philip Todd MD [Primary Care Provider] - Please follow up with your Primary Care Physician in: IN 2-3 WEEKS Disposition: Penitentiary facility Minutes spent on discharge:: 45 Patient Condition:: Stable Medical Necessity - Tobacco Use Smoking Status: Never smoker Meaningful Use Info Meaningful Use Diagnoses (Choose all that apply): None applicable Code Visit Inpatient E&M: 41181 Disch Hosp
[2018-09-30 10:17] VITALS: BP 142/72; PULSE 72
[2018-09-30] MEDS: Lisinopril 20 MG Tablet PO (10:17)
[2018-09-30] MEDS: Metoprolol(XL)Succ 50 MG Tablet PO (10:17)
[2018-09-30] MEDS: Enoxaparin 40 MG/0.4 ML Syringe SC (10:18)
[2018-09-30] MEDS: Famotidine 20 MG Tablet PO (10:20)
[2018-09-30] MEDS: guaiFENesin 1,200 MG Tablet 1200 MG PO (10:20)
[2018-09-30] MEDS: Oseltamivir Phosphate 30 MG Capsule PO (10:21)
--- NOTE | 2018-09-30 10:30 | CASEMGMT ---
Social Work Note Pt is discharging today. MARKOS faxed completed discharge paperwork to [facility] including transfer to extended care facility, signed medication list and any scripts. Originals in SNF folder and copy on pt's chart. MARKOS completed convalescent 7000 in [facility]. Original in SNF folder and copy on pt's chart SW in to update pt on discharge today. SW explained that pt will need to have transportation arranged as pt is on oxygen. Pt states she would like transportation to be arranged in the afternoon. SW explained that this worker can ask transportation for afternoon shredder picker but it is not guaranteed. Pt states understanding. MARKOS placed a call to [facility] and transportation arranged for 12:00pm. Transportation form on SNF folder and copy on pt's chart. SW update RN and pt on transportation time. Pt states that she will be calling her son to inform him. MARKOS placed a call to Nicolasa Bennett at [facility] and updated her on discharge and transportation time. Plan: Pt to discharge to [facility] skilled with [facility] transporting via wheelchair van at 12:00pm Latonia Og MSW, AIR GUN OPERATOR
[2018-09-30 10:50] VITALS: PULSE 74; RESP 18; O2SAT 93
[2018-09-30] MEDS: Insulin Lispro 100 UNIT/ML INSULN.PEN SQ (11:07)
[2018-09-30 11:20] LABS: Bedside Glucose 229 mg/dL (70-110)
--- NOTE | 2018-09-30 11:30 | NURSING ---
REPORT CALLED TO HAN @ [facility]
[2018-09-30 12:25] VITALS: BP 147/72; PULSE 72; RESP 18; TEMP 36.6; O2SAT 94
--- NOTE | 2018-09-30 14:09 | NURSING ---
STUDENT NURSES CHARTING REVIEWED FOR EDUCATIONAL LEARNING PURPOSES. BY KRIS ESCOBAR
== END 2018-09-30 12:25 | disposition skilled nursing facility (03) | DRG 193 ==
LOC: ED 06:55 → MS3 07:51
PROVIDERS: Admitting Provider Family Medicine; Emergency Provider Emergency Medicine; Family Provider Family Medicine; PCP Family Medicine; Visit Provider Internal Medicine
DX: J10.00 Influenza due to other identified influenza virus with unspecified type of pneumonia (principal); J96.01 Acute respiratory failure with hypoxia; Z68.41 Body mass index [BMI] 40.0-44.9, adult; E78.5 Hyperlipidemia, unspecified; H40.9 Unspecified glaucoma; J20.5 Acute bronchitis due to respiratory syncytial virus; E66.01 Morbid (severe) obesity due to excess calories; E11.9 Type 2 diabetes mellitus without complications; Z79.84 Long term (current) use of oral hypoglycemic drugs; I10 Essential (primary) hypertension; I65.23 Occlusion and stenosis of bilateral carotid arteries; Z66 Do not resuscitate
CPT/HCPCS: 36415; 71045; 71046; 71250; 80048; 81001; 82962; 83735; 85025; 85027; 87633; 87804; 94640; 94667; 94668; 97110; 97162; 97166; 97530; 99284; J7030; J7040; A4216; J1940

== ENCOUNTER 2018-12-11 10:30 | Outpatient (RCR) | payer MEDICARE, SELFPAY ==
[2018-09-25 08:29] VITALS: BMI 42.1
--- NOTE | 2018-11-20 16:51 | HP.PTEVAL_ITS ---
Patient's Visit Information DEBBIE KENNEY is a 83 year old F referred to Physical Therapy by Philip Todd MD with a diagnosis of TROCHANTERIC BURSITIS LEFT HIP AND LUMBAR PAIN. Date of Evaluation: 11/20/18 Physical Therapist: Delores Harrison PT, Cert MDT - Visit Plan Frequency: 2x /Week Duration: 2-4 Weeks Plan: POSTURE CORRECTION/STRENGTHENING, INSTRUCTION IN APPROPRIATE BODY MECHANICS AND ACTIVITY MODIFICATIONS. DLS STARTING WITH A NEUTRAL SPINE PROGRES SING ROM TOLERATED. ASHLYN LE ROM, STRETCHING AND STRENGTHENING. HEP INSTRUCTION. - Subjective Findings: Work/Leisure: RETIRED. Present symptoms: SEVERE LOW BACK PAIN, PAIN IN PELVIS AND BOTH HIPS. MY BACK JUST BREAKS WHEN I TRY TO DO SOME THINGS. ITS LIKE I DON'T HAVE ANY STRENGTH IN MY MUSCLES. ASHLYN LE AND FOOT PAIN, NUMBNESS AND TINGLING. Present since: PATIENT REPORTS HER PAIN HAS BEEN SEVERE FOR ABOUT A YEAR. Pain Scale: WORST 8/10, LEAST 0/10. Currently: 08/30. Commenced as a result of: NO APPARENT REASON. Symptoms at onset: LEFT HIP. Worse: TRYING TO DO HOUSEWORK, BENDING, GETTING UP AND DOWN FROM QUADRAPED, JUST LIVING, LIFTING, PUSHING, PULLING, GETTING IN/OUT OF THE CAR. STANDING AND WALKING. Better: SITTING, LYING DOWN. Disturbed sleep: YES. Previous history/Previous treatment: I HAVE BEEN TO A CHIROPRACTOR AND WASTED MY MONEY. PATIENT ALSO REPORTS SHE HAS BEEN TO PAIN MGMT AND SHE ISN'T SURE THAT HELPED EITHER. Coughing/sneezing/straining: NEGATIVE. Gait: USES WALKER SOMETIMES AT HOME LIKE AT NIGHT TO GO TO THE BATHROOM AND TO GET STARTED IN THE MORNING. CANE IN PUBLIC. CAN WALK A LITTLE BIT WITHOUT CANE OR WALKER. Difficulty initiating urinatin: NO. Accidents: HAD A FALL A COUPLE YEARS AGO. Unexplained weight loss: NO. Imaging: RECENT X-RAYS OF HIPS AND LOW BACK PER PATIENT REPORT AT [facility] - PATIENT REPORTS THEY SAW A LOT OF ARTHRITIS ON THE X-RAYS. PMH: NIDDM, HTN, GLAUCOMA. H/O RIGHT FOOT AND LEG STRESS FX'S. Recent major surgery: RIGHT KNEE SURGERY ABOUT A YEAR AGO FOR MENICUS TEAR. PLOF (Prior Level of Function): VERY INDEP UNTIL ABOUT A YEAR AGO WHEN SHE STARTED HAVING PROBLEMS WITH RIGHT KNEE. OTHER: ADMIT TO [facility] IN OCTOBER FOR 5.5 DAYS FOLLOWED BY PENITENTIARY FOR 17 DAYS DUE TO THE FLU. TREATED WITH PREDNISONE DURING STAY AND THAT TOOK HER PAIN AWAY BUT IT IS COMING BACK. STATES SHE WILL ONLY COME A FEW TIMES TO LEARN EX'S TO DO AT HOME. - Objective Sitting/Standing Posture: POOR. Lordosis: REDUCED. Active Correction of posture: WORSE. Other Observations: INDEP GAIT INTO PT WITH STRAIGHT CANE AND NO LOB. DECREASED CADANCE, DECREASED ASHLYN STRIDE LENGTH AND INCREASED TRUNK FLEXION. SHE IS USING GOOD SEQUENCING WITH THE CANE FOR LLE ASSIST. INDEP SIT TO STAND WITHOUT UE ASSIST BUT THIS IS DIFFICULT FOR PATIENT. DIFFICULTY INITIATING FIRST FEW STEPS OF GAIT AFTER SITTING. UNABLE TO SLS FOR MORE THAN A SECOND OR TWO ON EITHER LE WITHOUT UE ASSIST. Motor deficit: ASHLYN LE WEAKNESS: RIGHT HIP 3+/5, KNEE EXT 4/5, KNEE FLEX 4/5, ANKLE 4/5. LEFT HIP 3-/5, KNEE EXT 4-/5, KNEE FLEX 4-/5, ANKLE 4/5. Sensory deficit: ASHLYN LE LIGHT TOUCH SENSATION APPEARS INTACT AND SYMMETRICAL. ROM deficit: TIGHT ASHLYN HIP IR AND ER (LEFT > RIGHT) ALONG WITH HS'S, HIP FLEXORS AND GASTROC SOLEUS COMPLEX'S. Reflexes: 2/3 ASHLYN LE'S. Dural Signs: POSITIVE ASHLYN LE'S. Lumbar mvmt loss: flex - MOD. ext - VIRGILIO. R SG - MOD. L SG - MOD. Core strength: POOR. Palpation: NO ACUTE PAIN WITH PALPATION OF HER LOWER THORACIC, LUMBAR, PELVIC OR HIP REGIONS TODAY. OTHER: PATIENT ONLY TOLERATES A VERY SMALL LUMBAR SUPPORT IN SITTING. - Goals Goal 1:: DECREASE C/O LOW BACK, ASHLYN HIP, PELVIC AND ASHLYN LE SX'S. Goal Time Frame: 4-6 Weeks Goal 2:: IMPROVE BENDING, LIFTING, STANDING, WALKING, ADL AND SLEEP FUNCTION Goal Time Frame: 4-6 Weeks Goal 3:: INSTRUCT IN PROPHYLAXIS Goal Time Frame: 4-6 Weeks - Rehabilitation Potential Rehabilitation Potential: Fair - Anticipated Interventions Patient/Client Instruction: Educate patient on: Condition, Plan of Care, Risk Factors, Benefits of Fitness Program For the Purpose of:: To improve self management Therapeutic Exercise to Include: Strength training, Body mechanics, Postural training, Gait and locomotor training, Dynamic Lumbar Stabilization For the Purpose of:: To decrease pain, To improve muscle performance and motor function, To increase tolerance to activity/condition/position, To improve ability of physical actions for home/community/work/leisure, To improve gait and locomotor functions Cryotherapy (ice pack, ice massage): Yes Thermo therapy (hot pack): Yes Ultrasound (thermal/non thermal): Yes For the Purpose of:: To decrease pain, To decrease swelling/inflammation, To increase ROM, To improve nutrient delivery to tissue Thank you for the opportunity to evaluate your patient. For Medicare and Medicare HMO plans, please review the plan of care and approve it. It will need to be FAXED BACK to us at [phone] for Medicare purposes. For Medicare only, by signing this I certify the plan of care. Please let me know if there are questions or concerns regarding this plan of care. Physician Signature: Date:
--- NOTE | 2018-12-11 11:24 | HP.PTDCSUM_ITS ---
HP - PT D/C Summary It has been my pleasure to treat DEBBIE KENNEY under orders from Philip Todd MD, for the diagnosis of TROCHANTERIC BURSITIS LEFT HIP AND LUMBAR PAIN for a total of 7 visit(s). Discharge Date: 12/11/18 Please see the following information for a summary of their discharge status. - Subjective Subjective: PATIENT REPORTS SHE KNOWS WHAT SHE NEEDS TO DO ON HER OWN NOW AND IS READY TO STOP COMING. STATES SHE EVEN DID SOME OF HER HOME EX'S ALREADY THIS MORNING. SHE REPORTS THE CANE HELPS. SHE STATES THERAPY HAS HELPED SOME AND SHE THINKS IF SHE KEEPS WORKING ON THEM THEY WILL HELP MORE. SHE STATES SHE KNOWS THIS WOULDN'T GET ALL BETTER IN JUST A FEW WEEKS AND SHE WASN'T ASKING FOR T HAT...WANTED TO MAKE SURE SHE KNEW THE BEST EX'S FOR HER AND SHE FEELS LIKE SHE KNOWS THAT NOW. SHE STATES SHE IS HAPPY TO HAVE LEARNED THE NEW EX'S AND HAVE PICTURES OF THE ONES SHE NEEDS REMINDING FOR. PATIENT REPORTS THE BIGGEST IMPROVEMENT SHE HAS NOTICED IS THAT SHE CAN STAND STRAIGHTER AND STAND LONGER TO DO THINGS LIKE HER HAIR WITHOUT IT PULLING ON HER BACK. - Pain BACK/HIPS Pain Intensity (Out of 10): 1 - Overall Improvement % Improvement: 10 - Objective Objective/Function: PATIENT HAS MADE GOOD PROGRESS WITH PT AND IS INDEP WITH A HEP. UPON EXAM TODAY: PATIENT DEMONSTRATES INDEP SIT TO STAND WITHOUT UE ASSIST BUT THIS IS DIFFICULT FOR PATIENT AND SHE REPORTS FEELING STRAIN IN HER BACK AND KNEES. INITIATING FIRST FEW STEPS OF GAIT AFTER SITTING HAS IMPROVED.STILL UNABLE TO SLS FOR MORE THAN A SECOND OR TWO ON EITHER LE WITHOUT UE ASSIST. Motor deficit: ASHLYN LE WEAKNESS: RIGHT HIP 4/5, KNEE EXT 4/5, KNEE FLEX 4/5, ANKLE 5/5. LEFT HIP 4/5, KNEE EXT 4/5, KNEE FLEX 4/5, ANKLE 5/5. Sensory deficit: ASHLYN LE LIGHT TOUCH SENSATION APPEARS INTACT AND SYMMETRICAL. ROM deficit: TIGHT ASHLYN HIP IR AND ER (LEFT > RIGHT) ALONG WITH HS'S, HIP FLEXORS AND GASTROC SOLEUS COMPLEX'S. Dural Signs: NEGATIVE ASHLYN LE'S. Core strength: POOR. OTHER: PATIENT TOLERATES ALL TESTING AND TREATMENT WELL TODAY. LEFS HAS IMPROVED FROM 17 TO 31. - Goals Goal 1:: DECREASE C/O LOW BACK, ASHLYN HIP, PELVIC AND ASHLYN LE SX'S. Goal Progress: Progressing Goal 2:: IMPROVE BENDING, LIFTING, STANDING, WALKING, ADL AND SLEEP FUNCTION Goal Progress: Progressing Goal 3:: INSTRUCT IN PROPHYLAXIS Goal Progress: Goal Met - Plan Plan: D/C TO INDEP HEP. PATIENT IS AGREEABLE TO DISCAHRGE. - D/C Information If there are questions or concerns regarding this patient's physical therapy, please feel free to call me at [phone]. Thank you for the referral of this patient. Sincerely, Delores Harrison, PT, Cert MDT
== END 2018-12-11 19:00 | disposition home or self-care (01) ==
LOC: PT 10:30
PROVIDERS: Family Provider Family Medicine; PCP Family Medicine; Referring Provider Family Medicine; Visit Provider Family Medicine
DX: M70.62 Trochanteric bursitis, left hip (principal); M54.5 Low back pain
CPT/HCPCS: 97035; 97110; 97162; 97530

== ENCOUNTER 2020-05-12 12:06 | Emergency (ER) | payer MEDICARE, SELFPAY ==
[2018-09-25 08:29] VITALS: BMI 42.1
[2020-05-12 12:07] VITALS: BP 187/61; PULSE 57; RESP 16; TEMP 36.3; O2SAT 96; BMI 41.6
--- NOTE | 2020-05-12 12:28 | CT_ITS ---
STUDY: CT LUMBAR SPINE WITHOUT CONTRAST REASON FOR EXAM: Female, 84 years old. PT STATES WAS CLEANING HER DECK A COUPLE WEEKS AGO AND and amp;quot;HAD A TWIST THAT CAUSED PAIN AND HER AIR TO FLY OUT OF HER. and amp;quot; PT STATES HAS HAD PAIN TO HER RIGHT LOWER BACK SINCE AND NOW IS SO BAD SHE CAN''T LIVE WITH IT. RADIATION DOSAGE (If Supplied By Facility): CTDIvol = ( 45.45 ) mGy, DLP = ( 1422.80 ) mGycm TECHNIQUE: The patient was scanned in a multi detector CT scanner. High resolution transaxial imaging was performed. Images were obtained from L1 to S1 vertebral level. Sagittal and coronal images were reconstructed. Individualized dose optimization techniques were used for this CT. COMPARISON: None FINDINGS: Mild bibasilar atelectasis. Normal lumbar lordosis. There is no substantial scoliosis. Normal vertebrae of the lumbar spine. L1-2: Spondylosis. No significant disc space narrowing is seen. L2-3: Spondylolisthesis. Mild degree of diffuse posterior disc bulge. Minimal narrowing of the intervertebral foramen bilaterally. L3-4: Moderate degree of disc space narrowing and disc degeneration. Facet joint hypertrophy with a moderate degree of bilateral neural foraminal stenosis worse on the right side. L4-5: Moderate degree of facet joint osteoarthritis and hypertrophy causing a marked degree of bilateral neural foraminal stenosis worse on the left side. There is also evidence of mild degree of central canal stenosis due to hypertrophy of the ligamentum flavum. L5-S1: Facet joint osteoarthritis worse on the left side. Moderate degree of left neural foraminal stenosis. Calcification of the abdominal aorta CT/Spine Lumbar without Contrast IMPRESSION: Multilevel degenerative changes, as described above. Electronically Signed: Reid Hernandez, at 13:30 EDT , Service support ,
--- NOTE | 2020-05-12 12:32 | ED.VIS.GEN ---
History of Present Illness Chief Complaint: Back Informant: Patient Narrative: 84-year-old female presents with concern for back pain. States that she twisted her back while scrubbing her deck a week and a half ago. Her pain is increased since that time. States it is worse with movement. Describes a sharp in nature. Nonradiating. Denies any fever, chills, loss of bowel or bladder, saddle anesthesia. Past Medical History - Allergies and Home Meds Allergies/Adverse Reactions: Allergies morphine Adverse Reaction (Intermediate, Verified 05/12/20 12:10) mental status change meperidine HCl [From Demerol] Adverse Reaction (Mild, Verified 05/12/20 12:10) mental status change Primary Care Physician: Philip Todd MD [Primary Care Provider] - Past Medical History: - - HTN and GERD Surgical History: cataract, cholecystectomy, hysterectomy Smoking Status: Never smoker - Family History Paternal Family History: Family History (Last Updated 06/26/18 @ 13:11 by Norma Ribeiro) Brother Diabetes Heart disease Hypertension Colon cancer Mother Hypertension Family History: Reports: Heart Disease Maternal Family History: Family History (Last Updated 06/26/18 @ 13:11 by Norma Ribeiro) Brother Diabetes Heart disease Hypertension Colon cancer Mother Hypertension Family History: Reports: No pertinent history Sibling Family History: Family History (Last Updated 06/26/18 @ 13:11 by Norma Ribeiro) Brother Diabetes Heart disease Hypertension Colon cancer Mother Hypertension Family History: Reports: Cancer Review of Systems General: Denies: Chills, Fever, Sweats Eyes: Denies: Visual changes - bilaterally, Diplopia ENT: Denies: Rhinorrhea, Sore throat Cardiovascular: Denies: Chest pain, Palpitations Respiratory: Denies: Dyspnea, Cough, Dyspnea on exertion Gastrointestinal: Denies: Abdominal pain, Nausea, Vomiting, Diarrhea, Melena, Hematochezia Genitourinary: Denies: Dysuria, Hematuria, Frequency Musculoskeletal: Reports: Back pain. Denies: Extremity Pain Skin: Denies: Rash, Wounds Neurological: Denies: Headache, Weakness, Numbness Physical Exam Vital Signs/Narrative: Vital Signs Temp Pulse Resp BP Pulse Ox 05/12/20 12:07 97.3 F L 57 L 16 187/61 H 96 Inital Vital Signs reviewed: Yes General: Well nourished, Well developed, No Acute Distress Head: Normocephalic, Atraumatic Eyes: Perrl, EOMI ENT: Moist mucous membranes, No rhinorrhea Neck: Supple, Nontender Cardiovascular: Regular rate, Regular rhythm, No murmurs Respiratory: No distress, CTA bilaterally, Chest nontender Abdomen: Soft, Nontender, Nondistended, Normal bowel sounds Back: Normal Inspection, - - TTP of the lumbar midline. No overlying skin changes. Extremities: Nontender, No edema Skin: Normal color, No rash Neurological: Alert, Oriented x3, Cranial nerves II-XII grossly intact, Normal Strength, Normal Sensation Psychological: Normal affect, Normal Mood Diagnostic/Tx/Re-eval Clinical Impression(s) from Imaging Studies Lumbar Spine CT 05/12/20 12:28 IMPRESSION: Multilevel degenerative changes, as described above. Electronically Signed: Reid Araujoanmol, at 13:30 EDT , Service support , - Medical Decision Making Appears well nontoxic. Vital signs within normal limits. CT shows some canal stenosis with disc herniation. No focal weakness requiring emergent MRI. Patient was given subcutaneous Dilaudid as well as Flexeril and Kenalog. Patient will be discharged home with Flexeril and Lidoderm patches. Given spinal surgery follow-up. Asked to return for new or worsening symptoms. Advised on weight reduction. Discharged home in stable condition. Impression: 1. Acute lumbar back pain 2. Muscle spasm 3. Lumbar disc herniation ED Disposition - Plan for ED Patient: Disposition: Home or Assisted Living Instructions: ED Back Pain Acute or Chronic Prescriptions: cycloBENZAPRine HCl [Flexeril] 5 mg PO TID PRN #10 tab PRN Reason: Muscle Spasm Prescription Printed Lidocaine [Lidoderm Patch] 1 patch TOPICAL DAILY #7 patch Prescription Printed Referrals: Philip Todd MD [Primary Care Provider] - 2 Days Luis Antonio Puente DO [STAFF PHYSICIAN] - 5-7 Days
[2020-05-12] MEDS: HYDROmorphone 0.5 MG/0.5 ML SYRINGE IM (12:38)
[2020-05-12] MEDS: cycloBENZAPRine HCl 10 MG Tablet 5 MG PO (14:20)
[2020-05-12] MEDS: Triamcinolone Acetonide 40 MG/ML Vial IM (14:20)
[2020-05-12 14:21] VITALS: BP 140/72; PULSE 62; RESP 18; O2SAT 98
[2020-05-12 15:23] VITALS: BP 190/80; PULSE 81; RESP 18
== END 2020-05-12 15:25 | disposition home or self-care (01) ==
PROVIDERS: Emergency Provider Emergency Medicine; PCP Family Medicine
DX: M62.830 Muscle spasm of back (principal); M51.26 Other intervertebral disc displacement, lumbar region
CPT/HCPCS: 72131; 96372; 99281

== ENCOUNTER → 2020-06-26 12:13 | Outpatient (CLI) | payer MEDICARE, SELFPAY ==
[2020-05-22 13:38] VITALS: BMI 44.4
--- NOTE | 2020-06-26 12:13 | MRI_ITS ---
STUDY: MRI LUMBAR SPINE WITHOUT CONTRAST REASON FOR EXAM: Female, 84 years old. LOW BACK PAIN x 2 months, no radiculopathy TECHNIQUE: Standardized fat and water weighted pulse sequences were obtained in the sagittal and axial planes. COMPARISON: CT of the lumbar spine dated May 12, 2020. Lumbar spine x-ray dated May 22, 2020 FINDINGS: No visualized acute fracture or compression deformity or marrow edema. No aggressive process is present. Normal lumbar lordosis. Mild S-shaped scoliosis is present. Normal conus medullaris that terminates at the L1 level. Disc desiccation is present at all levels. Moderate atrophy of the left kidney noted. Multiple small cysts are scattered throughout both kidneys that do not require any follow-up imaging. L1-2: Minimal disc space narrowing with a diffuse disc spur complex. Normal bilateral facet joints. Normal central canal and bilateral lateral recesses. Normal bilateral intervertebral neural foramina. L2-3: Minimal retrolisthesis of L2 on L3 of less than 2 mm. Mild disc space narrowing with a minimal disc spur complex. Normal bilateral facet joints. Normal central canal and bilateral lateral recesses. Normal bilateral intervertebral neural foramina. L3-4: Normal endplates. Retrolisthesis of L3 on L4 of less than 2 mm. Mild posterior disc space narrowing with a minimal disc spur complex. Mild to moderate facet joint hypertrophy is present. Normal central canal and bilateral lateral recesses. Normal bilateral intervertebral neural foramina. L4-5: Mild disc space narrowing with a minimal disc spur complex. Mild to moderate central canal stenosis is present primarily due to significant facet joint and ligamenta flava hypertrophy. Normal bilateral intervertebral neural foramina. L5-S1: Mild disc space narrowing with a mild disc spur complex. Moderate to significant left facet joint hypertrophy noted. Normal right facet joint. Normal central canal and bilateral lateral recesses. Normal bilateral intervertebral neural foramina. Normal visualized sacral ala. There is moderate paraspinal muscular atrophy. MRI/Spine Lumbar (Routine) IMPRESSION: 1. Multilevel degenerative changes, as described above. 2. Mild to moderate central canal stenosis at L4-L5. Electronically Signed: Bishop Ford MD at 22:55 EST , Service support ,
== END ==
PROVIDERS: PCP Family Medicine; Referring Provider Orthopaedic Surgery; Visit Provider Orthopaedic Surgery
DX: M54.5 Low back pain (principal)
CPT/HCPCS: 72148

== ENCOUNTER → 2021-04-04 15:56 | Outpatient (CLI) | payer MEDICARE, SELFPAY ==
--- NOTE | 2021-04-04 16:01 | RAD_ITS ---
STUDY: X-RAY - LEFT SHOULDER REASON FOR EXAM: Female, 85 years old. Pain, decreased range of motion TECHNIQUE: 4 view(s) of the shoulder. COMPARISON: None. 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 There is degenerative arthrosis of the acromioclavicular joint without inferior osseous spur formation. Normal acromion. There is a prominent spur on the undersurface of the acromion which could cause impingement in the right clinical setting. There is demineralization of the humerus and visualized osseous structures. The soft tissue structures are unremarkable. Normal visualized pulmonary apex. RAD/Shoulder min 2 Views IMPRESSION: Degenerative arthrosis with a prominent spur on the undersurface of the acromion. No demonstrated fracture or suspicious osseous lesion Electronically Signed: Radames Hyman MD at 12:13 EDT , Service support ,
== END ==
PROVIDERS: PCP Nurse Practitioner; Referring Provider Nurse Practitioner; Visit Provider Nurse Practitioner
DX: M25.512 Pain in left shoulder (principal)
CPT/HCPCS: 73030

== ENCOUNTER → 2021-04-17 15:04 | Outpatient (CLI) | payer MEDICARE, SELFPAY ==
--- NOTE | 2021-04-17 15:09 | MRI_ITS ---
STUDY: MRI LEFT SHOULDER REASON FOR EXAM: Left shoulder pain for about 6 weeks, no specific injury. TECHNIQUE: Standardized fat and water weighted pulse sequences were obtained in all 3 orthogonal planes. COMPARISON: Radiographs 04/04/2021. FINDINGS: Although there is image degradation secondary to patient motion, there is still significant diagnostically useful information available from this examination. There is a full-thickness tear of the distal supraspinatus tendon extending into the anterior infraspinatus tendon (T2 coronal images 10-13) measuring approximately 1.6 cm in greatest length. There is mild subscapularis tendinosis (T2 axial image 13) without discrete tendon tear. Normal teres minor tendon. Normal supraspinatus muscle. Normal infraspinatus muscle. Normal subscapularis muscle. Normal teres minor muscle. There is glenohumeral arthrosis with chondral thinning, especially of the glenoid (T2 axial images 9-12). There is a small glenohumeral joint effusion. Normal humeral head and visualized proximal humerus. Normal biceps labral complex. Normal intracapsular long biceps tendon. There is degeneration of the labrum. Normal capsulo- ligamentous complex. There is acromioclavicular arthrosis without substantial undersurface osteophytes (T2 sagittal images 15-17). There is a Type II morphology (curved), with a subacromial enthesophyte (T2 sagittal image 13). There is subacromial-subdeltoid bursal fluid with bursal thickening (T2 axial images 9-16). Normal visualized coracohumeral and coracoacromial ligaments. Normal deltoid muscle. Normal trapezius muscle. MRI/Upper Ext Joint Only(Routine) IMPRESSION: Full-thickness tear of the supraspinatus/infraspinatus tendons. Mild subscapularis tendinosis. 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 Glenohumeral joint fluid communicating with the subacromial-subdeltoid bursa. Electronically Signed: Vaughn Holguin MD at 8:50 EDT Tel , Service support ,
== END ==
PROVIDERS: PCP Nurse Practitioner; Referring Provider Specialist; Visit Provider Specialist
DX: M25.512 Pain in left shoulder (principal)
CPT/HCPCS: 73221

== ENCOUNTER 2021-08-10 10:02 | Outpatient (CLI) | payer MEDICARE, SELFPAY ==
[2021-08-10 10:07] LABS: Bacteria 0 SEEN /hpf (None Seen); Mucous, Urine 0 SEEN /hpf (<or=2+); Red Blood Cells-Urine 0 SEEN /hpf (0-5)
[2021-08-10 10:11] LABS: Absolute Lymphocyte Count 3.17 X10^3/uL (0.83-4.51); Absolute Neutrophil Count 5.2 X10^3/uL (2.0-7.7); Basophil# 0.07 X10^3/uL; Basophil% 0.7 % (0-1); Eosinophil# 0.32 X10^3/uL; Eosinophils% 3.3 % (0-5); Hematocrit 39.2 % (37-47); Lymphocyte # 3.17 X10^3/ul (0.83-4.51); Lymphocyte % 32.6 % (19-41); Mean Corp Hgb Conc 33.2 g/dL (32-36); Mean Corpuscular Volume 93.6 fL (81-99); Mean Platelet Vol. 10.5 fl (6.2-12.0); Monocyte# 0.93 X10^3/uL; Monocyte% 9.6 % (0-10); NRBC Flagged by Analyzer 0 % (0-5); Neutrophil # 5.19 X10^3/uL (2.7-7.7); Neutrophil % 53.5 % (47-70); Platelet Count 250 K/mm3 (150-450); RBC Distribution Width CV 13.5 % (11.6-14.6); RBC Distribution Width SD 45.9 fl (35.1-43.9); Red Blood Count 4.19 M/mm3 (4.2-5.4); White Blood Count 9.7 K/mm3 (4.4-11.0)
[2021-08-10 10:12] LABS: Color, Urine Yellow (Yellow); Glucose, Dipstick Normal (Normal); Ketone-Dipstick Negative (Negative); Leukocyte Esterase-Dipstick 25 /ul (Negative); Nitrite-Dipstick Negative (Negative); Occult Blood-Urine Negative /ul (Negative); Protein-Dipstick Negative (Negative); Urine Bilirubin Dipstick Negative (Negative); Urine Clarity Clear (Clear); Urine Urobilinogen Normal (Normal)
[2021-08-10 10:25] LABS: White Blood Cells 5-10 SEEN /hpf (0-5)
[2021-08-10 10:26] LABS: Squamous Epithelial Cells - UA 5-10 SEEN /hpf (5-10)
[2021-08-10 10:35] LABS: ALB/GLOB Ratio 0.8 RATIO (0.9-2.4); AST(SGOT) 13 U/L (15-37); Alanine Aminotransfer ALT/SGPT 29 U/L (13-56); Albumin, Serum 3.2 g/dL (3.2-5.0); Alkaline Phosphatase 59 U/L (45-117); Anion Gap 3 (5-15); BUN 38 mg/dL (7-18); BUN/Creat Ratio 29.2 RATIO (10-20); Calcium,Total 10.1 mg/dL (8.5-10.1); Chloride 110 mmol/L (98-107); EST Glomerular Filtration Rate 41 mL/min (>60); Est Glom Filt Rate - Afr Amer 50 mL/min (>60); Globulin 3.9 g/dL (2.2-4.2); Glucose 99 mg/dL (74-106); Potassium 4.2 mmol/L (3.5-5.1); Protein, Total 7.1 g/dL (6.4-8.2); Sodium Level 142 mmol/L (136-145); Troponin-I HS 11 pg/mL (3.0-54.0)
== END 2021-08-10 23:59 | disposition short-term general hospital (02) ==
LOC: LABSPEC 10:03
PROVIDERS: PCP Nurse Practitioner; Visit Provider Internal Medicine
DX: I10 Essential (primary) hypertension (principal)
CPT/HCPCS: 80053; 81001; 84484; 85025

== ENCOUNTER 2021-10-12 08:21 | Outpatient (CLI) | payer MEDICARE, SELFPAY ==
--- NOTE | 2021-10-12 08:42 | RDU_ITS ---
Reason For Study: HTN Right Renal Artery Left Renal Artery Right renal artery ostium Left renal artery ostium 150.4/31.8 175.1/23.1 RSV/EDV. PSV/EDV. Right renal artery proximal Left renal artery proximal PSV/EDV 167.8/28.7 PSV/EDV. 209.9/28.8 . Right renal artery mid 213.2/30.6 Left renal artery mid 216.4/22.3 PSV/EDV. PSV/EDV . Right renal artery distal Left renal artery distal 151.2/23.9 191.1/34.2 PSV/EDV. PSV/EDV. Right Renal Parenchyma Left Renal Parenchyma Upper Pole Medula 36.1/7.6 PSV/EDV. Left upper pole medulla 40.5/9.8 Right upper pole medulla EDR 0.21 . PSV/EDV . Right upper pole medulla R.I. Left upper pole medulla EDR 0.24 . 0.79 . Left upper pole medulla R.I. 0.76 . Upper Randall Cortx 25.1/7.6 PSV/EDV. UP Cortex 17.3/4.5 PSV/EDV. Right upper pole cortex EDR 0.30 . Left upper pole cortex EDR 0.26 . Right upper pole cortex R.I. 0.70 . Left upper pole cortex R.I. 0.74 . Right lower Pole medulla 38.3/9.8 Left lower Pole medulla 27.3/8.1 PSV/EDV . PSV/EDV . Right lower pole medulla EDR 0.26 . Left lower pole medulla EDR 0.30 . Right lower pole medulla R.I. Left lower pole medulla R.I. 70 . 0.74 . Lower Pole Cortx 16.3/4.5 PSV/EDV. Lower Pole Cortex 22.9/6.5 PSV/EDV. Left lower pole cortex EDR 0.27 . Right lower pole cortex EDR 0.28 . Left lower pole cortex R.I. 0.73 . Right lower pole cortex R.I. 0.72 . Left Renal Hilar Right Renal Hilar LT Hilar avg 52.9/9.9 PSV/EDV . Right Hilar avg 62.1/8.9 PSV/EDV. Left hilar acceleration time 70 Right hilar acceleration time 40 m/sec. m/sec. Left Renal Dimensions Right Renal Dimensions Left kidney size 10.69 cm . Right kidney size 10.30 cm . Left cortical dimension 1.45 cm . Right cortical dimension 1.69 cm . Aorta Proximal abdominal aorta 1.47 x 1.47 cm . Proximal abdominal aorta peak systolic velocity is 135.5 cm/sec . Distal abdominal aorta 1.32 x 1.32 cm . Distal abdominal aorta peak systolic velocity is 154.4 cm/sec . VL/Renal Artery Duplex Ultrasound Interpretation Summary Maximal aortic diameter proximally at 1.47 x 1.47 cm in diameter. Velocity flow mildly elevated throughout the aorta. This invalidates renal artery to aortic ratios. Maximum velocity within the right mid renal artery is mildly abnormal at 213 cm /s peak systolic flow but this may be a reflection of the increased velocity in the abdominal aorta. Suspect less than 60% stenosis. Right renal length is maintained at 10.3 cm which is normal Maximal velocity within the left mid renal artery is 216 cm/s peak static flow which is marginally higher than normal but again in relationship to the increased velocity in the a bdominal aorta likely represents less than 60% stenosis. Left renal length maintained at 10.69 cm which is normal Ordering Physician: Martina Lal Referring Physician: Martina Lal Performed By: Latonia Donato RVT
--- NOTE | 2021-10-12 08:43 | CDU_ITS ---
Reason For Study: Carotid disease, bilateral Rt. Velocities/BP Lt. Velocities/BP Prox CCA 79.9/9.5 cm/sec. Prox CCA 68.1/11.5 cm/sec. Mid CCA 82.5/9.5 cm/sec. Mid CCA 60.8/7.9 cm/sec. Dist CCA 69.5/8.2 cm/sec. Dist CCA 134.6/27 cm/sec. Prox ICA 91.4/13.7 cm/sec. Prox ICA 189.3/36.5 cm/sec. Mid ICA 107/18.9 cm/sec. Mid ICA 197.2/28.6 cm/sec. Dist ICA 88.2/13.3 cm/sec. Dist ICA 78.5/11.1 cm/sec. Rt. ICA/CCA = 1.34. Lt. ICA/CCA = 2.9. Prox ECA 361.9/8.8 cm/sec. Prox ECA 210.9/16.7 cm/sec. Rt. Vert. 64.5/13.3 cm/sec. Lt. Vert. 53.5/7.9 cm/sec. Right Extracranial There is homogeneous, smooth atherosclerotic plaque noted in the right common carotid artery. There is heterogeneous, irregular atherosclerotic plaque noted in the right internal carotid artery. There is heterogeneous, irregular atherosclerotic plaque noted in the right external carotid artery. Antegrade flow is noted in the right vertebral artery. Left Extracranial There is heterogeneous, irregular atherosclerotic plaque noted in the left common carotid artery. There is heterogeneous, irregular atherosclerotic plaque noted in the left internal carotid artery. There is heterogeneous, irregular atherosclerotic plaque noted in the left external carotid artery. Antegrade flow is noted in the left vertebral artery. Procedure Carotid Duplex [id number]. This is a Carotid Duplex examination using B-mode, color flow and specral Doppler. Exam performed in department. VL/Carotid Duplex Ultrasound Interpretation Summary Mild irregular plaque of the proximal right internal carotid artery with less t hernandez 50% stenosis Greater than 50% stenosis right external carotid artery Irregular calcific plaque left common carotid and proximal internal carotid art geeta. 50 to 69% stenosis of the left internal carotid artery. Greater than 50% stenosis left external carotid artery Patent and antegrade vertebral arteries bilaterally Findings appear similar to the previous examination of June 19, 2018 Ordering Physician: Martina Lal Referring Physician: Martina Lal Performed By: Latonia Donato RVT
[2021-10-12 11:21] LABS: PTHIN 85.8 pg/mL (18.4-80.1)
== END 2021-10-12 23:59 | disposition home or self-care (01) ==
LOC: CVS 08:23
PROVIDERS: PCP Internal Medicine; Referring Provider Internal Medicine; Visit Provider Internal Medicine
DX: I65.23 Occlusion and stenosis of bilateral carotid arteries (principal); I10 Essential (primary) hypertension
CPT/HCPCS: 36415; 82310; 83970; 93880; 93975

== ENCOUNTER 2021-10-23 11:00 | Outpatient (CLI) | payer MEDICARE, SELFPAY | END 2021-10-23 23:59 | disposition home or self-care (01) | PROVIDERS: PCP Internal Medicine; Referring Provider Internal Medicine; Visit Provider Internal Medicine | DX: G47.30 Sleep apnea, unspecified (principal) | CPT/HCPCS: 95806 ==

== ENCOUNTER → 2022-02-18 | Outpatient (CLI) | payer MEDICARE, SELFPAY ==
[2022-02-18 17:49] LABS: Absolute Lymphocyte Count 2.75 X10^3/uL (0.83-4.51); Absolute Neutrophil Count 6.1 X10^3/uL (2.0-7.7); Basophil# 0.07 X10^3/uL; Basophil% 0.7 % (0-1); Eosinophil# 0.34 X10^3/uL; Eosinophils% 3.4 % (0-5); Hemoglobin 13.1 g/dL (12.0-15.0); Lymphocyte # 2.75 X10^3/ul (0.83-4.51); Lymphocyte % 27.1 % (19-41); Mean Corp Hgb Conc 32.8 g/dL (32-36); Mean Corpuscular Hgb 29.8 pg (27.0-32.0); Mean Corpuscular Volume 90.9 fL (81-99); Mean Platelet Vol. 10.6 fl (6.2-12.0); Monocyte# 0.89 X10^3/uL; Monocyte% 8.8 % (0-10); NRBC Flagged by Analyzer 0 % (0-5); Neutrophil # 6.06 X10^3/uL (2.7-7.7); Neutrophil % 59.7 % (47-70); Platelet Count 252 K/mm3 (150-450); RBC Distribution Width CV 13.7 % (11.6-14.6); RBC Distribution Width SD 45.6 fl (35.1-43.9); White Blood Count 10.1 K/mm3 (4.4-11.0)
[2022-02-18 18:11] LABS: ALB/GLOB Ratio 0.9 RATIO (0.9-2.4); AST(SGOT) 19 U/L (15-37); Alanine Aminotransfer ALT/SGPT 29 U/L (13-56); Albumin, Serum 3.4 g/dL (3.2-5.0); Alkaline Phosphatase 67 U/L (45-117); Anion Gap 3 (5-15); BUN 33 mg/dL (7-18); BUN/Creat Ratio 29.5 RATIO (10-20); CRP 8.28 mg/L (0.0-3.0); Chloride 109 mmol/L (98-107); Creatinine, Serum 1.12 mg/dL (0.55-1.02); EST Glomerular Filtration Rate 49 mL/min (>60); Est Glom Filt Rate - Afr Amer 59 mL/min (>60); Globulin 3.8 g/dL (2.2-4.2); Glucose 92 mg/dL (74-106); Potassium 4.6 mmol/L (3.5-5.1); Protein, Total 7.2 g/dL (6.4-8.2); Sodium Level 137 mmol/L (136-145)
[2022-02-18 18:14] LABS: Erythrocyte Sedimentation Rate 26 mm/hr (0-30)
== END | disposition home or self-care (01) ==
PROVIDERS: PCP Internal Medicine; Referring Provider Internal Medicine; Visit Provider Internal Medicine
DX: R10.9 Unspecified abdominal pain (principal)
CPT/HCPCS: 36415; 80053; 85025; 85652; 86140

== ENCOUNTER → 2022-02-25 | Outpatient (CLI) | payer MEDICARE, SELFPAY ==
--- NOTE | 2022-02-25 12:48 | CT_ITS ---
STUDY: CT ABDOMEN AND PELVIS WITH CONTRAST REASON FOR EXAM: Female, 86 years old. Right lower quadrant abdominal pain. RADIATION DOSAGE (If Supplied By Facility): CTDIvol = ( 20.31 ) mGy, DLP = ( 1346.20 ) mGycm TECHNIQUE: Transaxial images were obtained from the dome of the diaphragm to the symphysis pubis with oral contrast. 100 mL of ISOVUE 370 was administered. Sagittal and coronal images were reconstructed. Individualized dose optimization techniques were used for this CT. COMPARISON: None. FINDINGS: The visualized lung bases are unremarkable. The visualized portions of the heart are within normal limits. Normal liver. There are surgical clips in the gallbladder fossa consistent with a prior cholecystectomy. Normal spleen. Normal pancreas. Normal right adrenal. There is 2.64 x 2.0 x 2.1 cm enhancing mass in the left adrenal gland. There is a 1.7 cm cyst in the upper pole of the right kidney other smaller cysts are also noted. No renal calculi or mass. No hydronephrosis. Normal right ureter. The left kidney is atrophic with cortical thinning. There is no mass or cyst. No renal calculi or hydronephrosis. Normal left ureter Small hiatal hernia. The stomach is otherwise unremarkable. Normal small intestine. Colonic diverticulosis most marked in the sigmoid. No mass or obstruction. There is non-visualization of the appendix. There is diffuse atherosclerotic calcification of the abdominal aorta, without a demonstrated aneurysm. Normal inferior vena cava. Normal retroperitoneum. Normal urinary bladder. Unremarkable vaginal cuff. There is no pelvic lymphadenopathy. No free air or free fluid is seen within the peritoneal cavity. There is an umbilical hernia of omental fat. There is a subumbilical midline hernia of omental fat with focal calcifications. There are surgical clips in this region suggesting prior herniorrhaphy. Minimal stranding in the fat. There are diffuse degenerative changes of the visualized lumbar spine. CT/Abdomen/Pelvis WITH Contrast IMPRESSION: 1. Nonvisualization the appendix. There is no right lower quadrant inflammatory change. 2. Ventral hernias. 3. Hiatal hernia. 4. Colonic diverticulosis without acute inflammatory change. 5. Left adrenal enhancing mass. This does not have the appearance of an adenoma. Follow-up required. 6. 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 7. Multiple right renal cysts. These require no further follow-up. Electronically Signed: Felix Keyes DO at 22:52 EDT Reading Location ID and State: [address] [place] [address] Tel [phone], Service support ,
== END | disposition home or self-care (01) ==
LOC: CT 12:47
PROVIDERS: PCP Internal Medicine; Referring Provider Internal Medicine; Visit Provider Internal Medicine
DX: R10.31 Right lower quadrant pain (principal)
CPT/HCPCS: 74177; Q9967

== ENCOUNTER → 2022-03-18 | Outpatient (CLI) | payer MEDICARE, SELFPAY ==
--- NOTE | 2022-03-18 11:08 | RAD_ITS ---
STUDY: X-RAY - THORACIC SPINE REASON FOR EXAM: Female, 86 years old. back pain TECHNIQUE: XR Spine Thoracic 3 Views COMPARISON: None FINDINGS: Normal kyphosis of the thoracic spine. There is no substantial scoliosis. There is demineralization of the thoracic spine with endplate spondylosis. There is multilevel disc space narrowing of the thoracic spine. The soft tissue structures are unremarkable. RAD/Thoracic Spine 3 Views IMPRESSION: There are degenerative changes as noted above. Electronically Signed: Peyman Azul MD at 17:45 EDT ,
== END | disposition home or self-care (01) ==
PROVIDERS: PCP Internal Medicine; Referring Provider Surgery; Visit Provider Surgery
DX: M54.9 Dorsalgia, unspecified (principal)
CPT/HCPCS: 72072

== ENCOUNTER → 2022-03-27 | Outpatient (CLI) | payer MEDICARE, SELFPAY ==
--- NOTE | 2022-03-27 12:50 | BI_ITS ---
MAMMOGRAPHY - BILATERAL SCREENING REASON FOR EXAM: Female, 86 years old. Routine annual screening examination. PERTINENT HISTORY: Non-contributory. TECHNIQUE: Digital bilateral breast robinson (3D mammographic acquisition) in the CC and MLO projections. 2-D mediolateral oblique (MLO) and craniocaudad (CC) views of both breasts were obtained. CAD: Full Field Digital Mammography with Computer Added Detection was performed. COMPARISON: No comparison mammograms available at this time. If any prior films become available, an addendum to this report can be generated. FINDINGS: Breast Composition: There are scattered areas of fibroglandular density. Asymmetrical density is seen in the deep upper lateral aspect of the right breast. This may represent asymmetrical glandular tissue although correlation with ultrasound is recommended. No other significant abnormalities are identified. BI/SCRN MAMM (CAD)W/ROBINSON BILAT IMPRESSION: Asymmetrical density in the upper deep outer aspect of the right breast as described. Correlation with ultrasound recommended. ASSESSMENT CATEGORY: BIRADS Category 0: Incomplete. Need additional imaging evaluation. A letter regarding these results will be sent to the patient by the facility within 30 days. Approximately 10% of breast cancers are not detected by mammography. A normal mammogram should not delay biopsy of a clinically suspicious abnormality. [id number] Electronically Signed: Reid Hernandez MD at 14:15 EDT ,
== END | disposition home or self-care (01) ==
LOC: OPBI 12:49
PROVIDERS: PCP Internal Medicine; Visit Provider Surgery
DX: Z12.31 Encounter for screening mammogram for malignant neoplasm of breast (principal)
CPT/HCPCS: 77063; 77067

== ENCOUNTER → 2022-03-29 | Outpatient (CLI) | payer MEDICARE, SELFPAY ==
--- NOTE | 2022-03-29 12:51 | US_ITS ---
STUDY: ULTRASOUND BREAST - RIGHT REASON FOR EXAM: Female, 86 years old. Abnormal screening mammogram. TECHNIQUE: Axial and longitudinal images of the RIGHT breast were performed with a high resolution ultrasound transducer. # OF IMAGES: 16 COMPARISON: Comparison is made with prior study dated 03/27/2022. FINDINGS: RIGHT Breast: This is a 2.5 cm x 1 cm slightly lobulated hypoechoic nodule at 11 o''clock position in the breast adjacent to the axilla. A biopsy is recommended. US/Breast Limited Unilateral IMPRESSION: 2.5 cm x 1 cm slightly lobulated hypoechoic nodule at 11 o''clock position of the breast adjacent to the axilla. Biopsy is recommended. ASSESSMENT CATEGORY: BIRADS Category 4: Suspicious - Biopsy Should Be Considered. A letter regarding these results will be sent to the patient by the facility within 30 days. Electronically Signed: Reid Hernandez MD at 9:45 EDT ,
== END | disposition home or self-care (01) ==
PROVIDERS: PCP Internal Medicine; Referring Provider Surgery; Visit Provider Surgery
DX: R92.8 Other abnormal and inconclusive findings on diagnostic imaging of breast (principal)
CPT/HCPCS: 76642

== ENCOUNTER → 2022-04-09 | Outpatient (CLI) | payer MEDICARE, SELFPAY ==
--- NOTE | 2022-04-09 | IMM_PTH ---
PATIENT: DEBIBE KENNEY LOC: [facility] U#:[id number] AGE/SX: 86/F ROOM: RE04/09/[address]: Dr. Michael Michel MD : 1935 BED: DIS: 04/09/2022 SPEC #: [id number] RECD: 04/11/22 12:47 STATUS: STEPHANIE REQ #: [id number] EUGENIA: 04/09/22 00:[address]: Michael Michel DEPT: IMMUNOHISTOCHEMISTRY RECD BY: Rukhsana Carey ENTERED: 04/11/22 12:48 SP TYPE: IMMUNO OTHR DR: Dr. Mratina Lal DO Tissues: Right breast, NOS Procedures: CALPONIN-1 (add) CK5-6 (add) CK8 (add) E-CAD (add) HER2 TROY (add) KI-67 (add) P53 (add) SC (add) P40 (add) ER (initial) PHYSICIAN & INSTITUTION [address] [address] SPECIMEN INFORMATION: Tissue Source: Right breast tissue Clinical Info: Abnormal right breast ultrasound Specimen Number: [id number] CPT code: 90308, 51918 x6, 58171 x3 METHODOLOGY: Deparaffinized sections of prefer/formalin-fixed tissue or PAP/DQ stained slides are incubated with monoclonal/polyclonal antibodies/oligonucleotide probes. Localization is made via biotin free immunoperoxidase method. Appropriate controls are performed and reacted as expected. Results on target cell population are indicated in the following table: RESULTS: ANTIBODY / CLONE RESULT E-Cad (ECH-6) positive CK8 (45dhwnE34) positive Calponin-1 (MI116G) negative CK5-6 (D5 & 1684) negative P40 (BC28) negative P53 (DO-7) positive, rare cells, weak Ki-67 (30-9) positive, low, ~15% MORPHOMETRIC ANALYSIS ER (clone 6F11) >95%, strong intensity SC (clone 16/1E2) ~52%, weak to moderate intensity Her-2Neu (clone CB11) 0 The prognostic test for HER2 is performed on formalin-fixed paraffin embedded tissue. A 3+ (positive) staining pattern is defined as intense, homogeneous, complete, circumferential membranous staining in >10% of contiguous tumor cells. A similar weak (2+) staining pattern is interpreted as equivocal. CONNIE follow-up testing is recommended for all equivocal cases. Positivity/negativity for ER/SC is reported if > or < 1% of the tumor cells are immuno- reactive, respectively. The ASCO/CAP criteria is used for scoring. Reference: Journal of Clinical Oncology, 2013; 31:8184-6434 & 2010; 16:2851-9011. Duration of fixation: 28 Hrs; Sample Adequate: Yes. These assays have not been validated on decalcified tissues. Results should be interpreted with caution given the likelihood of false negativity on decalcified specimens. These tests were developed and their performance characteristics determined by [facility]. They may not have been cleared or approved by the U.S. Food and Drug Administration. The FDA has determined that such clearance or approval is not necessary. The above immunohistochemical/dualISH markers are ordered and reviewed by the Pathologist. INTERPRETATION: Right breast, core biopsy: Invasive ductal carcinoma (mucinous carcinoma), nuclear grade 1. Positive for estrogen receptors (favorable prognostic indicator). Positive for progesterone receptors (favorable prognostic indicator). Negative for overexpression of KUS1hsu. SJ:stevie 04/12/2022
--- NOTE | 2022-04-09 15:30 | BRBX_PTH ---
PATIENT: DEBBIE KENNEY [facility] U#:[id number] AGE/SX: 86/F ROOM: RE04/09/[address]: Dr. Michael Micehl MD : 1935 BED: DIS: 04/09/2022 SPEC #: [id number] RECD: 04/10/22 07:37 STATUS: STEPHANIE RECharity #: [id number] EUGENIA: 04/09/22 15:[address]: Michael Michel DEPT: SURGICAL PATHOLOGY RECD BY: Jan Paul ENTERED: 04/10/22 08:02 SP TYPE: BREAST BX OT DR: Dr. Martina Lal DO Tissues: Right breast, NOS Procedures: Surgery Specimen Level IV HEADER OPERATION: Right breast biopsy PRE-OP DIAGNOSIS: Abnormal right breast ultrasound TISSUE SUBMITTED: Right breast tissue 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). See comment. CHRISTIANO:stevie 04/11/2022 COMMENT Immunohistochemistry ([id number]) supports the above diagnosis. ER/HI/Lmt9bmh studies are being performed on sections of tumor and the results from this study will be reported separately ([id number]). Case has been reviewed in consultation with Dr. Marino who concurs with the above diagnosis. IDC:AM MICROSCOPIC DESCRIPTION Slides are reviewed. GROSS DESCRIPTION Received in fixative is one container labeled with the patient's name and designated right breast. The specimen consists of multiple elongated fragments of mercado-yellow fibroadipose tissue that in aggregate measure 2.5 x 0.5 x 0.1 cm. The entire specimen is submitted in one cassette. / CHRISTIANO:stevie 04/10/2022 TC:0 CPT: 23084
== END | disposition home or self-care (01) ==
LOC: LABSPEC 04-10 08:07
PROVIDERS: PCP Internal Medicine; Referring Provider Surgery; Visit Provider Surgery
DX: R92.8 Other abnormal and inconclusive findings on diagnostic imaging of breast (principal)
CPT/HCPCS: 88305; 88341; 88342

== ENCOUNTER → 2022-04-25 | Outpatient (CLI) | payer MEDICARE, SELFPAY ==
--- NOTE | 2022-04-25 10:56 | BD_ITS ---
STUDY: DUAL ENERGY X-RAY ABSORPTIOMETRY / DXA REASON FOR EXAM: Female, 86 years old. Z780. Patient is postmenopausal. TECHNIQUE: Bone Mineral Density (BMD) measurements of lumbar spine and bilateral hips were obtained. COMPARISON: None. FINDINGS: Lumbar Spine (L1-L4): g/cm2 (1.216) / T-score (1.8) / Z-score (4.6) Findings are suggestive of normal bone density with a low fracture risk. Left Femur Total: g/cm2 (1.083) / T-score (1.2) / Z-score (3.5) Left Femoral Neck: g/cm2 (0.787) / T-score (-0.6) / Z-score (2.0) Right Femur Total: g/cm2 (1.016) / T-score (0.6) / Z-score (2.9) Right Femoral Neck: g/cm2 (0.764) / T-score (-0.8) / Z-score (1.8) BD/Dexa Bone Density Study IMPRESSION: The patient is considered normal as outlined below according to World Bertram Organization (WHO) criteria with a low fracture risk. Reference Information: The T-score is the number of standard deviations above or below the standard which is normal for young adults at their peak bone mineral density. The World Health Organization (WHO) interprets the T-scores as follows: Above -1 Normal bone density Between -1 and -2.5 Osteopenia Equal to / or below -2.5 Osteoporosis As a practical clinical guideline, osteopenia may be graded as follows: Mild -1 through -1.5 Moderate -1.6 through -2.0 Severe -2.1 through -2.4 The Z-score is the number of standard deviations above or below age-matched controls. A Z-score of less than -1.5 would be considered abnormal. References: 1. NIH Osteoporosis and Related Bone Diseases www osteo.org 2. International Society for Clinical Densitometry www iscd.org 3. National Osteoporosis Foundation www nof.org Electronically Signed: Reid Hernandez MD at 9:38 EDT ,
== END | disposition home or self-care (01) ==
PROVIDERS: PCP Internal Medicine; Visit Provider Internal Medicine
DX: Z78.0 Asymptomatic menopausal state (principal)
CPT/HCPCS: 77080

== ENCOUNTER 2022-04-30 07:12 | Day surgery (SDC) | payer MEDICARE, SELFPAY ==
--- NOTE | 2022-04-25 10:00 | RAD_ITS ---
STUDY: X-RAY CHEST REASON FOR EXAM: Female, 86 years old. Breast cancer. TECHNIQUE: Frontal and lateral views of the chest. COMPARISON: 09/27/2018. FINDINGS: Stable low volume inspiration with minimal bibasilar atelectasis. There is no demonstrated pleural abnormality. Cardiomegaly unchanged. Normal mediastinum and tomasa. Normal visualized pulmonary arteries. Stable aortic tortuosity with calcification. Thoracic osteopenia, mild diffuse spondylosis and increased kyphosis, unchanged. Normal visualized ribs, clavicles, and shoulders. There is no demonstrated abnormality of the visualized soft tissue structures of the upper abdomen. RAD/Chest PA and Lateral IMPRESSION: Stable chest with no acute superimposed findings since the prior study. Electronically Signed: Baljit Lam, at 11:42 EDT ,
[2022-04-25 10:17] LABS: Hematocrit 43.3 % (37-47); Hemoglobin 14.3 g/dL (12.0-15.0); Mean Corpuscular Hgb 30.2 pg (27.0-32.0); Mean Corpuscular Volume 91.5 fL (81-99); Mean Platelet Vol. 10.3 fl (6.2-12.0); Platelet Count 213 K/mm3 (150-450); RBC Distribution Width CV 13.5 % (11.6-14.6); RBC Distribution Width SD 46.3 fl (35.1-43.9); Red Blood Count 4.73 M/mm3 (4.2-5.4); White Blood Count 7.8 K/mm3 (4.4-11.0)
[2022-04-25 10:47] LABS: ALB/GLOB Ratio 0.8 RATIO (0.9-2.4); AST(SGOT) 14 U/L (15-37); Alanine Aminotransfer ALT/SGPT 24 U/L (13-56); Albumin, Serum 3.3 g/dL (3.2-5.0); Alkaline Phosphatase 62 U/L (45-117); Anion Gap 3 (5-15); BUN 39 mg/dL (7-18); BUN/Creat Ratio 29.8 RATIO (10-20); Calcium,Total 10.2 mg/dL (8.5-10.1); Chloride 110 mmol/L (98-107); Creatinine, Serum 1.31 mg/dL (0.55-1.02); EST Glomerular Filtration Rate 41 mL/min (>60); Est Glom Filt Rate - Afr Amer 50 mL/min (>60); Glucose 108 mg/dL (74-106); Potassium 4.7 mmol/L (3.5-5.1); Protein, Total 7.3 g/dL (6.4-8.2); Sodium Level 142 mmol/L (136-145)
[2022-04-30] VITALS (11 sets, daily range): BP systolic 142–186; BP diastolic 41–150; PULSE 52–69; RESP 16–20; TEMP 36.2–37.2; O2SAT 91–98; BMI 42.9
--- NOTE | 2022-04-30 | IMM_PTH ---
PATIENT: DEBBIE KENNEY LOC: [facility] – [place], [place] U#:[id number] AGE/SX: 86/F ROOM: RE04/30/[address]: Dr. Michael Michel MD : 1935 BED: DIS: 04/30/2022 SPEC #: [id number] RECD: 05/03/22 12:23 STATUS: STEPHANIE REQ #: [id number] EUGENIA: 04/30/22 00:[address]: Michael Michel DEPT: IMMUNOHISTOCHEMISTRY RECD BY: Rukhsana Carey ENTERED: 05/03/22 12:24 SP TYPE: IMMUNO OTHR DR: Dr. Martina Lal, Tissues: A - Axillary lymph node, NOS Procedures: CK7 (add) Pankeratin (initial) Pankeratin (add) PHYSICIAN & INSTITUTION [place] [address] SPECIMEN INFORMATION: Tissue Source: A ? Right axillary sentinel lymph nodes Clinical Info: Right breast cancer Specimen Number: [id number] A1, A2, A4-A6 CPT code: 59330, 85395 x9 METHODOLOGY: Deparaffinized sections of prefer/formalin-fixed tissue or PAP/DQ stained slides are incubated with monoclonal/polyclonal antibodies/oligonucleotide probes. Localization is made via biotin free immunoperoxidase method. Appropriate controls are performed and reacted as expected. Results on target cell population are indicated in the following table: RESULTS: ANTIBODY / CLONE RESULT Block A1 CK7 (OV-TL12/30) negative AE1-3 (AE1/AE3/PCK26) negative Block A2 CK7 (OV-TL12/30) negative AE1-3 (AE1/AE3/PCK26) negative Block A4 CK7 (OV-TL12/30) negative AE1-3 (AE1/AE3/PCK26) negative Block A5 CK7 (OV-TL12/30) negative AE1-3 (AE1/AE3/PCK26) negative Block A6 CK7 (OV-TL12/30) negative AE1-3 (AE1/AE3/PCK26) negative These tests were developed and their performance characteristics determined by [facility]. They may not have been cleared or approved by the U.S. Food and Drug Administration. The FDA has determined that such clearance or approval is not necessary. The above immunohistochemical/dualISH markers are ordered and reviewed by the Pathologist. INTERPRETATION: A. Right axillary sentinel lymph nodes, biopsy: Two out of two lymph nodes, negative for carcinoma. AM:stevie 05/06/2022
--- NOTE | 2022-04-30 | AXNB_PTH ---
PATIENT: DEBBIE KENNEY [place] [facility] [place][id number] AGE/SX: 86/F ROOM: RE04/30/[address]: Dr. Michael Michel MD : 1935 BED: DIS: 04/30/2022 SPEC #: [id number] RECD: 04/30/22 10:19 STATUS: STEPHANIE MIN #: [id number] EUGENIA: 04/30/22 00:[address]: Michael Michel DEPT: SURGICAL PATHOLOGY RECD BY: Rukhsana Carey ENTERED: 04/30/22 11:28 SP TYPE: AX NODE BX OTHR DR: Dr. Martina Lal DO Tissues: A - Axillary lymph node, NOS B - Right breast, NOS Procedures: Frozen Section (charge) Surgery Specimen Level IV Surgery Specimen Level V HEADER OPERATION: Ultrasound-guided wire localization lumpectomy with sentinel lymph node biopsy PRE-OP DIAGNOSIS: Right breast cancer TISSUE SUBMITTED: A - Right axillary sentinel node, FS, B - Right breast mass, short suture - anterior, long suture - lateral, air knot - superior FROZEN SECTION DIAGNOSIS A. Right axillary sentinel lymph nodes, biopsy: Two out of two lymph nodes, negative for carcinoma. AM:stevie 04/30/2022 MICROSCOPIC DIAGNOSIS A. Right axillary sentinel lymph nodes, biopsy: Two out of two lymph nodes, negative for carcinoma. B. Right breast mass, lumpectomy: Invasive ductal (mucinous) carcinoma. See cancer synoptic report below. AM:stevie 05/03/2022 COMMENT A. Immunohistochemistry ([id number]) supports the above diagnosis. INVASIVE BREAST CANCER SUMMARY: Procedure - excision with wire guidance Specimen: Type - partial breast Size ? 8 x 5 x 4 cm Laterality ? right breast Tumor: Site ? not specified Size ? 2.5 x 2 x 1.5 cm Histologic type - invasive ductal (mucinous) carcinoma. Focality - single focus Histologic Grade (Nora grade): Glandular/tubular differentiation - score 2 Nuclear pleomorphism - score 2 Mitotic count ? score 1 Overall grade - 1 (score of 5) Ductal carcinoma in situ: Present Estimated quantification (% of tumor volume) ? 5% Number of blocks - 3 of 12 blocks Architectural patterns ? solid and cribriform Nuclear grade ? grade 1 Necrosis ? not present Lobular carcinoma in situ (LCIS) ? not present Tumor extension: Skin ? not applicable Nipple - not applicable Skeletal muscle - not applicable Margins: Distance of invasive carcinoma from closest margin ? 0.5 mm from posterior margin. Distance of in situ carcinoma from closest margin - 0.5 mm from posterior margin. Lymph nodes: Number of lymph nodes examined - 2 Number of sentinel lymph nodes - 2 Number of lymph nodes with macrometastases, micrometastases and isolated tumor cells ? 0 See specimen A. Treatment effect: Unknown Lymphvascular invasion ? not identified Additional pathologic findings ? fibrocystic change with associated microcalcifications. Usual intraductal hyperplasia without atypia. Ancillary studies - previously performed on section of tumor ([id number] / [id number]). ER ? positive (>95%, strong intensity) TN - positive (~52%, weak to moderate intensity) Her2 lc ? negative (0) Her2 by dual CONNIE - not performed Ki67 ? positive (15%) Microcalcifications ? present in invasive carcinoma and benign breast tissue. Clinical history ? Mass of breast. PATHOLOGIC STAGE: T2 N0 Mx The above summary is in compliance with [employer] (CAP) Cancer Protocols Checklist and [place] [employer] on Cancer (AJCC), Staging Manual, 8th Ed. Case has been reviewed in consultation with Dr. Benites who concurs with the above diagnosis. IDC:[email or web address] MICROSCOPIC DESCRIPTION Slides are reviewed. GROSS DESCRIPTION A - Received fresh for frozen section consultation labeled with the patient's name is a specimen designated right axillary sentinel lymph node. The specimen consists of an irregular fragment of mercado-yellow fibrofatty tissue measuring 8.5 x 3 x 1.5 cm. Dissection reveals two fatty lymph nodes ranging in size from 2.5 to 3.5 cm in greatest dimension. The lymph nodes are serially sectioned and submitted in entirety for frozen section consultation as follows: 1 & 2 - one lymph node, 3-7 - one lymph nodes, serially sectioned. / AM:stevie 04/30/2022 B - Received fresh for intraoperative consultation labeled with the patient's name is a specimen designated right breast tissue. The specimen consists of a piece of fibroadipose tissue with needle localization measuring 8 x 5 x 4 cm. The specimen is oriented as follows: short suture - anterior, long suture - lateral, air knot - superior. The specimen is inked as follows: anterior - yellow, posterior - black, superior - blue, inferior - green, medial - red and lateral - orange. Serial sections reveal a mercado, indurated mass measuring 2.5 x 2 x 1.5 cm. This mass is 0.5 cm away from the closest posterior margin. This information is conveyed to the surgeon intraoperatively. Sectioning of the rest of the specimen reveal mercado-yellow adipose cut surfaces with scant fibrous area. A metallic clip is noted in the tumor mass. Farm Demonstrator sections are submitted in 12 cassettes as follows: 1 - perpendicular medial, lateral and posterior margins, 2 - perpendicular inferior, superior and anterior margins, 3-6 - entire tumor, 7 & 8 - loan representative sections adjacent to the tumor, 9-12 - loan representative sections away from the tumor. Sections are submitted after additional fixation. / SJ:stevie 05/01/2022 TC:0 CPT: 69059, 35036, 19465
--- NOTE | 2022-04-30 07:23 | HP.PCM_ITS ---
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 Is patient in pain?: No Allergies morphine Adverse Reaction (Intermediate, Verified 04/15/22 13:37) mental status changemeperidine HCl [From Demerol] Adverse Reaction (Mild, Verified 04/15/22 13:37) mental status change Medications ascorbic acid (vitamin C) 500 mg tablet 500 mg PO DAILY@0800 supplement 07/29/14 [History Confirmed 04/15/22] latanoprost 0.005 % eye drops 1 drp EACH EYE QHS 07/29/14 [History Confirmed 04/15/22] omega-3 fatty acids-fish oil 300 mg-1,000 mg capsule 1 ea PO DAILY 07/29/14 [History Confirmed 04/15/22] nateglinide 60 mg tablet 60 mg PO TID 08/27/17 [History Confirmed 04/15/22] aspirin 81 mg chewable tablet 81 mg PO .qod 06/26/18 [History Confirmed 04/15/22] metoprolol succinate 50 mg tablet,extended release 24 hr 50 mg PO DAILY 06/26/18 [History Confirmed 04/15/22] Cardio [place] Healthy PO DAILY 05/22/20 [History Confirmed 04/15/22] amlodipine 5 mg tablet 5 mg PO DAILY 11/09/21 [History Confirmed 04/15/22] furosemide 40 mg tablet 40 mg PO DAILY 11/09/21 [History Confirmed 04/15/22] lisinopril 20 mg tablet 20 mg PO BID 11/09/21 [History Confirmed 04/15/22] potassium chloride 10 mEq capsule,extended release 10 meq PO DAILY 11/09/21 [History Confirmed 04/15/22] rosuvastatin 5 mg tablet 5 mg PO DAILY 11/09/21 [History Confirmed 04/15/22] hydralazine 25 mg tablet 50 mg PO QDAY 03/18/22 [History Confirmed 04/15/22] artery cleanse PO 04/01/22 [History Confirmed 04/15/22] cholecalciferol (vitamin D3) 125 mcg (5,000 unit) capsule 125 mcg PO DAILY 04/01/22 [History Confirmed 04/15/22] cinnamon bark 500 mg capsule (Cinnamon) 500 mg PO DAILY 04/01/22 [History Confirmed 04/15/22] circu max gold PO 04/01/22 [History Confirmed 04/15/22] liver supplement PO 04/01/22 [History Confirmed 04/15/22] silver PO 04/01/22 [History Confirmed 04/15/22] Is last menstrual period known: No Post menopausal: Yes Patient : No PFSH Medical History?(Updated 04/15/22 @ 13:37 by Norma Ribeiro) Bilateral carotid artery stenosis Bilateral extracranial carotid artery stenosis GERD (gastroesophageal reflux disease) HTN (hypertension) Hyperlipidemia Type 2 diabetes mellitus Surgical History?(Updated 04/09/22 @ 15:39 by Norma Ribeiro) History of cataract extraction History of cholecystectomy History of hysterectomy History of right breast biopsy (~03/2022) History of umbilical hernia repair Family History? Brother Diabetes Heart disease Hypertension Lung cancerMother HypertensionBrother Colon cancerBrother CancerBrother Sleep apnea Myocardial infarctionBrother Sleep apneaOther Arthritis Asthma Social History? household members:? 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 house Smoking Status:? Never smoker alcohol intake:? never substance use type:? does not use what type of physical activity do you participate in:? none seatbelt use:? always do you feel safe at home:? Yes HPI HPI HPI: 86-year-old female returns to discuss results of her ultrasound-guided needle core biopsy far upper lateral right breast biopsy that I performed for her on April 09, 2022.? She presents with her son and [id number].? Today's appointment was a 30-minute [id number] consultative appointment regarding the finding of right breast cancer.? The patient states that since her injection per Dr. Alamo her back is better but not completely resolved.? She does have an upcoming appointment with him. 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 RESULT E-Cad? (ECH-6) ? ? ? positive CK8? (27zkpfS46)? positive Calponin-1 (MU692J) ? ? ? negative CK5-6? (D5 & 1684) ? ? negative P40? (BC28) ? negative P53? (DO-7) ? positive, rare cells, weak Ki-67? (30-9)? positive, low, ~15% ? MORPHOMETRIC ANALYSIS? ? ER (clone 6F11)? >95%, strong intensity NC (clone 16/1E2) ? ~52%, weak to moderate intensity Her-2Neu (clone CB11)? 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 Is patient in pain?: No Allergies morphine Adverse Reaction (Intermediate, Verified 04/09/22 15:29) mental status changemeperidine HCl [From Demerol] Adverse Reaction (Mild, Verified 04/09/22 15:29) mental status change Medications ascorbic acid (vitamin C) 500 mg tablet 500 mg PO DAILY@0800 supplement 07/29/14 [History Confirmed 04/09/22] latanoprost 0.005 % eye drops 1 drp EACH EYE QHS 07/29/14 [History Confirmed 04/09/22] omega-3 fatty acids-fish oil 300 mg-1,000 mg capsule 1 ea PO DAILY 07/29/14 [History Confirmed 04/09/22] nateglinide 60 mg tablet 60 mg PO TID 08/27/17 [History Confirmed 04/09/22] aspirin 81 mg chewable tablet 81 mg PO .qod 06/26/18 [History Confirmed 04/09/22] metoprolol succinate 50 mg tablet,extended release 24 hr 50 mg PO DAILY 06/26/18 [History Confirmed 04/09/22] Cardio [place] Healthy PO DAILY 05/22/20 [History Confirmed 04/09/22] amlodipine 5 mg tablet 5 mg PO DAILY 11/09/21 [History Confirmed 04/09/22] furosemide 40 mg tablet 40 mg PO DAILY 11/09/21 [History Confirmed 04/09/22] lisinopril 20 mg tablet 20 mg PO BID 11/09/21 [History Confirmed 04/09/22] potassium chloride 10 mEq capsule,extended release 10 meq PO DAILY 11/09/21 [History Confirmed 04/09/22] rosuvastatin 5 mg tablet 5 mg PO DAILY 11/09/21 [History Confirmed 04/09/22] hydralazine 25 mg tablet 50 mg PO QDAY 03/18/22 [History Confirmed 04/09/22] artery cleanse PO 04/01/22 [History Confirmed 04/09/22] cholecalciferol (vitamin D3) 125 mcg (5,000 unit) capsule 125 mcg PO DAILY 04/01/22 [History Confirmed 04/09/22] cinnamon bark 500 mg capsule (Cinnamon) 500 mg PO DAILY 04/01/22 [History Confirmed 04/09/22] circu max gold PO 04/01/22 [History Confirmed 04/09/22] liver supplement PO 04/01/22 [History Confirmed 04/09/22] silver PO 04/01/22 [History Confirmed 04/09/22] Is last menstrual period known: No Post menopausal: Yes Patient : No PFSH Medical History?(Updated 04/09/22 @ 16:[address] Michael Michel MD) Bilateral carotid artery stenosis Bilateral extracranial carotid artery stenosis GERD (gastroesophageal reflux disease) HTN (hypertension) Hyperlipidemia Type 2 diabetes mellitus Surgical History?(Updated 04/09/22 @ 15:39 by Norma Ribeiro) History of cataract extraction History of cholecystectomy History of hysterectomy History of right breast biopsy (~03/2022) History of umbilical hernia repair Family History? Brother Diabetes Heart disease Hypertension Lung cancerMother HypertensionBrother Colon cancerBrother CancerBrother Sleep apnea Myocardial infarctionBrother Sleep apneaOther Arthritis Asthma Social History? household members:? 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 house Smoking Status:? Never smoker alcohol intake:? never substance use type:? does not use what type of physical activity do you participate in:? none seatbelt use:? always do you feel safe at home:? Yes HPI HPI HPI: 86-year-old female is being referred because of abnormal breast imaging.? I saw this patient previously on March 18, 2022.? Multiple concerns at that time. My impression On further review September 28, 2018 she had a chest CT without contrast.? This showed small bilateral pleural effusions at that time and coronary calcification.? 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 On her most recent CAT scan of the abdomen pelvis February 25 there appears to be a nodule in the right breast which is not commented upon.? I did asked the patient regarding her most recent mammography and she stated not for an extended period of time because they are too painful for causing her almost to faint. I have described to her that her incarcerated ventral incisional hernias are at the umbilicus and infraumbilical and likely have omentum within.? There is no evidence of bowel.? She is completely asymptomatic at that location.? Her body habitus would not lend well to it attempt at recurrent repair. Regarding the patient's right upper quadrant and flank discomfort I am more suspicious that this is musculoskeletal in etiology.? Regarding the incidental right breast imaging not sure that this plays a role. I have recommended to the patient that we get thoracic spine x-rays looking for potential for acute compression fracture.? I also recommended the patient bilateral breast mammography. She will consider her treatment options.? At this point I am not detecting a general surgical etiology to her discomfort and will refer her back to Dr. Martina Lal.? I do appreciate the kind opportunity of assisting with her surgical care Although recommended it is not clear to me that the patient will pursue the breast mammography.? This has been recommended however. She did pursue breast mammography and breast ultrasonography. The images did demonstrate BI-RADS 4 a 2.5 x 1 cm slightly lobulated hypoechoic nodule 11 o'clock position right breast.? Biopsy recommended. March 29, 2022 MAMMOGRAPHY - BILATERAL SCREENING REASON FOR EXAM:? ? Female, 86 years old.? Routine annual screening examination. PERTINENT HISTORY:? Non-contributory. TECHNIQUE: ? Digital bilateral breast robinson (3D mammographic acquisition) in the CC and MLO projections. 2-D mediolateral oblique (MLO) and craniocaudad (CC) views of both breasts were obtained.? CAD: Full Field Digital Mammography with Computer Added Detection was performed. COMPARISON: ? No comparison mammograms available at this time.? If any prior films become available, an addendum to this report can be generated. FINDINGS: Breast Composition:? There are scattered areas of fibroglandular density. Asymmetrical density is seen in the deep upper lateral aspect of the right breast.? This may represent asymmetrical glandular tissue although correlation with ultrasound is recommended. No other significant abnormalities are identified. BI/SCRN MAMM (CAD)W/ROBINSON BILAT IMPRESSION: Asymmetrical density in the upper deep outer aspect of the right breast as described.? Correlation with ultrasound recommended. ? ? ASSESSMENT CATEGORY: BIRADS Category 0:? Incomplete.? Need additional imaging evaluation.? A letter regarding these results will be sent to the patient by the facility within 30 days. ? Approximately 10% of breast cancers are not detected by mammography.? A normal mammogram should not delay biopsy of a clinically suspicious abnormality. ? [id number] ? Electronically Signed: Reid Hernandez MD at 14:15 EDT , March 29, 2022 STUDY: ? ULTRASOUND BREAST - RIGHT REASON FOR EXAM: ? Female, 86 years old.? Abnormal screening mammogram. TECHNIQUE: ? Axial and longitudinal images of the RIGHT breast were performed with a high resolution ultrasound transducer. # OF IMAGES:? 16 COMPARISON: ? Comparison is made with prior study dated 03/27/2022. FINDINGS: RIGHT Breast: This is a 2.5 cm x 1 cm slightly lobulated hypoechoic nodule at 11 o''clock position in the breast adjacent to the axilla.? A biopsy is recommended. US/Breast Limited Unilateral IMPRESSION: 2.5 cm x 1 cm? slightly lobulated hypoechoic nodule at 11 o''clock position of the breast adjacent to the axilla.? Biopsy is recommended. ? ASSESSMENT CATEGORY: BIRADS Category 4:? Suspicious - Biopsy Should Be Considered.? A letter regarding these results will be sent to the patient by the facility within 30 days. ? Electronically Signed: Reid Hernandez MD at 9:45 EDT , ROS General General: No weight change, appetite, fatigue, colon cancer, breast cancer or weakness HEENT HEENT: No difficulty swallowing, eye injury, eye surgery, swollen glands or hoarseness Endo Endocrine: Yes diabetes mellitus; No thyroid disease, thyroid cancer, Hair loss, heat intolerance or cold intolerance Breast Breast: No left breast lump, right breast lump, nipple discharge, breast pain, abnormal mammogram, abnormal US or breast enlargement Musc Musculoskeletal: Yes back problems and arthritis; No rheumatoid arthritis, gout or joint pain Cardio Cardiovascular: Yes high blood pressure; No murmur, pacemaker, heart disease, atrial fibrillation, heart attack, heart stent, palpitations, shortness of breat with exertion or chest pain Psych Psychiatric: No depression, anxiety or hearing voices Resp Respiratory: No shortness of breath, No sleep apnea, Yes cough, No COPD, No asthma, No emphysema and No wheezing Gastro Gastrointestinal: Yes abdominal pain, No nausea or vomiting, No diarrhea, No constipation, No blood in stool, No acid reflux, No hemorrhoids, No ulcers, No gallbladder problem and No black,tarry stools Star Hematologic: No blood thinners, No blood disorders, No bleeding, No anemia and No blood clots Neuro Neurologic: No weakness Office Procedures Biopsy Provider Documentation Ultrasound-guided needle core biopsy lateral upper outer quadrant right breast mass Timeout informed consent was obtained.? The patient was taken the procedure room initially placed in a modified left lateral decubitus position but it was evident that the lesion in question was rather far laterally placed.? She was then placed in a full left sided position.? Upper quadrant right breast prepped with Betadine.? Under ultrasound guidance 1% lidocaine mixed 50-50 with 0.5% Marcaine was used as local anesthetic.? 10 cc was used.? A small stab incision was created.? A 14-gauge Monopty needle was advanced to prefire depth.? Pre and post fire films were obtained.? 3 cores were obtained.? A marking clip was left in position.? She tolerated that well.? Blood loss was minimal.? I felt that I had adequate tissue.? Specimens were immediately transferred to formalin for analysis.? No apparent complication. Michael Michel M.D., F.A.C.S. Biopsy Breast Biopsy: [id number] US Guidance Procedure Time Out Time Out Informed consent given: Yes Consent signed: Yes Time out checklist: patient, procedure, site marked/identified, positioning of patient, supplies available, allergies confirmed and team agrees on procedure Time out staff in room: Yes Time out verified: Yes Time out date: 04/09/22 Time out time: 15:39 Assessment and Plan Assessment and Plan (1) Abnormal ultrasound of breast: ?Status:?Acute ?Plan: Abnormal upper quadrant right breast mammogram and ultrasound.? Seemingly successful ultrasound-guided needle core biopsy.? The patient's been given activity wound care instructions.? She will be notified results of soon as they become available. It is of note that since the patient's previous visit where I suggested to her flank pain may be emanating from her back she did obtain injections with marked improvement in her discomfort.? She remains surprised that this was likely source of her complaints ROS General General: No weight change, appetite, fatigue, colon cancer, breast cancer or weakness HEENT HEENT: No difficulty swallowing, eye injury, eye surgery, swollen glands or hoarseness Endo Endocrine: Yes diabetes mellitus; No thyroid disease, thyroid cancer, Hair loss, heat intolerance or cold intolerance Breast Breast: No left breast lump, right breast lump, nipple discharge, breast pain, abnormal mammogram, abnormal US or breast enlargement Musc Musculoskeletal: Yes back problems and arthritis; No rheumatoid arthritis, gout or joint pain Cardio Cardiovascular: Yes high blood pressure; No murmur, pacemaker, heart disease, atrial fibrillation, heart attack, heart stent, palpitations, shortness of breat with exertion or chest pain Psych Psychiatric: No depression, anxiety or hearing voices Resp Respiratory: No shortness of breath, No sleep apnea, Yes cough, No COPD, No asthma, No emphysema and No wheezing Gastro Gastrointestinal: Yes abdominal pain, No nausea or vomiting, No diarrhea, No constipation, No blood in stool, No acid reflux, No hemorrhoids, No ulcers, No gallbladder problem and No black,tarry stools Star Hematologic: No blood thinners, No blood disorders, No bleeding, No anemia and No blood clots Neuro Neurologic: No weakness Assessment and Plan Assessment and Plan (1) Breast cancer, right breast: ?Status:?Acute ?Plan: I am recommending to the patient a nuclear tracer and blue dye right axillary sentinel lymph node biopsy with ultrasound-guided wire localization upper lateral right breast lumpectomy.? In great detail I discussed the technique, benefit, risk, alternatives.? No guarantees of success been offered.? We have briefly discussed that frequently this treatment is combined with radiotherapy.? I have instructed her that she is estrogen receptor positive and so likely it would be recommended to have hormonal therapy post procedure.? Based upon her age and based upon pathologic findings she might be a candidate able to forego the radiation treatment. I have compared and contrasted this to a right mastectomy.? I am not in favor of that much surgery for this patient at this time. With her ongoing back complaints I recommend to her a preoperative bone scan.? She has had an opportunity to ask and have questions answered.? She will discuss with her family members and notify me when convenient.? We will tentatively look for potential operative date. I appreciate the ongoing opportunity of assisting with her surgical care. CT scan abdomen pelvis February 25, 2022 CT/Abdomen/Pelvis WITH Contrast IMPRESSION: 1.? Nonvisualization the appendix.? There is no right lower quadrant inflammatory change. 2.? Ventral hernias. 3.? Hiatal hernia. 4.? Colonic diverticulosis without acute inflammatory change. 5.? Left adrenal enhancing mass.? This does not have the appearance of an adenoma.? Follow-up required. 6.? 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 7.? Multiple right renal cysts.? These require no further follow-up Copy: Dr. Martina Michel M.D., F.A.C.S
--- NOTE | 2022-04-30 07:26 | EX.PCM.DISCH ---
Discharge Instructions Procedure Breast Surgery Diet Discharge Diet: No restrictions Activity Discharge Activity: May Not Drive (for 2-3 days or while taking narcotic pain meds.) May shower in (days): 1 Lifting Restrictions: 10 pounds for 1 week. Dressing / Incision Call your doctor if your incision/area has: Continuous Slow Oozing and Sudden Increased Bleeding Call your doctor if you observe: Fever of 101 or Higher Suture Line Care: Avoid Pulling/Pushing and Avoid Pinching/Bending Remove Dressing in: 1 day Additional Dressing/Incision Instructions:: Remove bulky dressing tomorrow. May leave any opsite dressing for 3-4 days. Keep dressing in place until your follow-up appointment. Follow Up Care Test Results: Test results from this visit will be discussed in further detail at your follow-up appointment, if applicable. Discharge Plan Admission Attending Provider: Michael Michel Primary Care Provider: Martina Lal Discharge Orders/Prescriptions Prescriptions: No Action metoprolol succinate 50 mg tablet extended release 24 hr 25 mg PO BID Cardio [place] Healthy 1 cap PO DAILY lisinopril 20 mg tablet 20 mg PO BID Label Comments: TAKE 1 TABLET BY MOUTH EVERY DAY amlodipine [Norvasc] 5 mg tablet 5 mg PO DAILY hydralazine 25 mg tablet 50 mg PO QHS cholecalciferol (vitamin D3) 125 mcg (5,000 unit) capsule 125 mcg PO DAILY artery cleanse 1 tab PO DAILY cinnamon bark [Cinnamon] 500 mg capsule 500 mg PO DAILY silver 2 tsp PO DAILY circu max gold 1 dose PO DAILY liver supplement 1 cap PO QHS latanoprost 1 DROP bottle 1 drp EACH EYE QHS Label Comments: EYE HEALTH ascorbic acid (vitamin C) 500 MG tablet 500 mg PO DAILY@0800 Label Comments: suppliment omega-3 fatty acids-fish oil 1 EACH capsule 1 ea PO DAILY Label Comments: supplement aspirin 81 mg tablet,chewable 81 mg PO DAILY Label Comments: PT'S LAST DOSE OF ASPIRIN WILL BE 04/26/2022 nateglinide 60 MG tablet 60 mg PO TID Label Comments: diabetes Referrals / Follow Up: Martina Lal DO [Primary Care Provider] - Disposition Disposition (needs filled in before D/C Order can be placed): Home, Self Care
[2022-04-30] MEDS: Lactated Ringers 1,000 ML 15 ML IV ×2 (07:30→11:10)
--- NOTE | 2022-04-30 08:00 | NM_ITS ---
PROCEDURE: NUCLEAR MEDICINE Injection Wilmot Node - RIGHT breast(s). REASON FOR EXAM: Female, 86 years old. Right breast cancer. TECHNIQUE: Wilmot node localization using radionuclide methods of the RIGHT breast(s) was performed following subcutaneous administration of 1.1 mCi of of sulfur colloid Tc-99m. FINDINGS: 1.1 mCi of technetium labeled sulfur colloid was injected subcutaneously in 4 equal aliquots in the jose alberto-areolar region. NM/Lymph Node Injection Only IMPRESSION: 1.1 mCi of technetium labeled sulfur colloid was injected subcutaneously in 4 equal aliquots in the periareolar region for sentinel node imaging. Electronically Signed: Reid Hernandez MD at 8:43 EDT ,
[2022-04-30 09:36] LABS: Bedside Glucose 98 mg/dL (74-106)
[2022-04-30] MEDS: Cefazolin 2 GM in 0.9% Normal Saline 100 ML IV (09:38)
[2022-04-30] MEDS: Isosulfan Blue 1% 5 ML Vial (09:55)
--- NOTE | 2022-04-30 10:31 | BI_ITS ---
SURGICAL BREAST SPECIMEN RADIOGRAPH CLINICAL: Document presence of mass in biopsy specimen. FINDINGS: Specimen shows presence of mass. Electronically Signed: Reid Hernandez MD at 11:30 EDT , BI/Breast Biopsy Specimen IMPRESSION: undefined
--- NOTE | 2022-04-30 10:53 | OP.PCM_ITS ---
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 86-year-old female was taken to the operating placed upon the table underwent general endotracheal esthesia the patient had previously had nuclear tracer injected per radiology the right breast was prepped and 2-1/2 cc of isosulfan blue dye was injected retroareolar and massage was performed for 3 minutes. The right arm was placed in soft roll at right angles to the table. The right breast and axilla were sterilely prepped and draped. Ultrasound was used to identify the lesion in the far lateral right breast and under ultrasound guidance a Kopan's needle was inserted. Then a oblique incision was made in the right axilla sharp dissection carried down through the subcutaneous tissue blue dye tracking was identified what appeared to be a blue lymph node was identified and using electrocautery complete circumferential dissection was performed hemostasis attained with hemoclips. At the completion there was no palpable remaining nodes no visible remaining blue nodes and no neoprobe remaining hot nodes. Specimen was sent for frozen section where 2 sentinel nodes have been submitted and both negative for carcinoma. A slightly curvilinear incision was made in the outer mid right breast guided by the wire electrocautery dissection performed the lesion was circumferentially completely excised a short suture was placed anteriorly a long suture laterally and a area not placed superiorly. Images demonstrated the previous marking clip to be in place the lesion was felt to been completely removed per pathology with a 5 mm posterior margin. Each wound was made hemostatic with electrocautery and 3-0 Vicryl sutures. Each wound was approximated with deeper sutures in interrupted 3-0 Vicryl and then skin edges were approximated running septic or 4-0 Monocryl. Each incision was anesthetized with 0.25% Marcaine a total of 30 cc was used. Sponge and instrument and needle counts were reported to the surgeon to be correct blood loss minimal. No apparent complication. The patient was taken to the recovery room in satisfactory condition. Synoptic Portion: Element Response Options Operation performed with curative intent. Yes Tracer(s) used to identify sentinel nodes in the upfront surgery (non- neoadjuvant) setting (select all that apply). Isosulfan blue dye and radioactive tracer Tracer(s) used to identify sentinel nodes in the neoadjuvant setting (select all that apply). Not applicable All nodes (colored or non-colored) present at the end of a dye-filled lymphatic channel were removed. Yes All significantly radioactive nodes were removed. Yes All palpably suspicious nodes were removed. Yes Biopsy-proven positive nodes marked with clips prior to chemotherapy were identified and removed. Not applicable Surgeon: Michael Michel Type of Anesthesia: General and Local Anesthesiologist: Abida Whyte
[2022-04-30 12:25] LABS: Bedside Glucose 114 mg/dL (74-106)
[2022-04-30] MEDS: HYDROcodone Bitartrate/Apap 5/325 Tablet PO (13:03)
== END 2022-04-30 16:21 | disposition home or self-care (01) ==
LOC: SDC 07:13 → AC 07:14
PROVIDERS: PCP Internal Medicine; Referring Provider Surgery; Visit Provider Surgery
PROC: (CPT 19301; principal; 2022-04-30 09:45)
DX: C50.411 Malignant neoplasm of upper-outer quadrant of right female breast (principal); E11.9 Type 2 diabetes mellitus without complications; Z17.0 Estrogen receptor positive status [ER+]; I65.23 Occlusion and stenosis of bilateral carotid arteries; I44.0 Atrioventricular block, first degree; I10 Essential (primary) hypertension; E78.5 Hyperlipidemia, unspecified; K21.9 Gastro-esophageal reflux disease without esophagitis; G47.33 Obstructive sleep apnea (adult) (pediatric); M19.90 Unspecified osteoarthritis, unspecified site; Z79.82 Long term (current) use of aspirin; Z79.84 Long term (current) use of oral hypoglycemic drugs; Z79.899 Other long term (current) drug therapy
CPT/HCPCS: 19301; 38525; 00404; 38792; 36415; 71046; 76098; 80053; 82962; 85027; 88305; 88307; 88331; 88341; 88342; 93005; A9541; J7120; J2405; Q9968

== ENCOUNTER → 2022-05-06 | Outpatient (CLI) | payer MEDICARE, SELFPAY ==
--- NOTE | 2022-05-06 08:11 | NM_ITS ---
CLINICAL: 86-year-old female with history of primary breast carcinoma. WHOLE BODY 99m Tc MDP RADIONUCLIDE BONE SCINTIGRAPHY COMPARISON: None available FINDINGS: Following the intravenous administration of 27.4 mCi of 99m Tc MDP, whole body bone images reveal: 1. Increased radiopharmaceutical concentration is defined in the left elbow, the visualized left wrist, the acromioclavicular and sternoclavicular compartments of both shoulders, the glenohumeral compartment of the left shoulder, the patellofemoral and medial tibial compartments of both knees, the bilateral midfoot. 2. The remaining skeletal structures are scintigraphically unremarkable with normal-appearing renal images and urinary bladder activity identified. There is scintigraphic evidence of hyperostosis frontalis. NM/Bone Scan Whole Body IMPRESSION: 1. Enhanced tracer concentration visualized in the left elbow and left wrist, bilateral shoulders, both knee articulations, right-left midfoot. 2. There is no definitive scintigraphic evidence of skeletal metastatic disease. Electronically Signed: Justyn Palma, at 21:56 EDT ,
== END | disposition home or self-care (01) ==
LOC: NM 08:05
PROVIDERS: PCP Internal Medicine; Referring Provider Internal Medicine; Visit Provider Internal Medicine
DX: R10.9 Unspecified abdominal pain (principal)
CPT/HCPCS: 78306; A9503

== ENCOUNTER 2022-05-14 20:20 | Inpatient (IN) | payer MEDICARE, SELFPAY ==
[2022-05-14 20:21] VITALS: BP 191/61; PULSE 68; RESP 26; TEMP 37.3; O2SAT 95; BMI 43.4
--- NOTE | 2022-05-14 21:28 | EX.ED.DYSGE1 ---
HPI History of Present Illness Chief Complaint: Fever Narrative Narrative: 86-year-old female here with concern for fever and sepsis. She is accompanied by her daughter. They state patient was having fevers and chills. Noted recent seroma drainage by her surgeon. States she is got pain and erythema around the site. States this is improved slightly since onset. States she is got constant, severe, not improving symptoms. Denies any cough, denies any urinary complaints, denies any nausea or vomiting. Denies any diarrhea. Patient does endorse a mild headache as well. Denies any numbness, weakness, loss sensation, slurred speech. Patient denies sudden onset or thunderclap headache, denies medical intensive within 1 minute, vomiting, neck pain or stiffness, changes in vision, fever, history malignancy, syncope, seizures. Old chart reviewed: History of hypertension, breast cancer status post biopsy in March 2022 completed by Michael Michel seroma status post recent drainage. [facility] Medical History Ambulates with cane Arthritis Bilateral carotid artery stenosis Bilateral extracranial carotid artery stenosis Cancer Difficulty swallowing GERD (gastroesophageal reflux disease) History of edema History of IBS History of renal disease History of steroid therapy HTN (hypertension) Hyperlipidemia Leg cramps Non-smoker PONV (postoperative nausea and vomiting) Shortness of breath on exertion Sleep apnea Type 2 diabetes mellitus Wears glasses Wears hearing aid Home Medications ascorbic acid (vitamin C) 500 mg tablet 500 mg PO DAILY@0800 supplement 07/29/14 [History Last Taken 09/25/18] latanoprost 0.005 % eye drops 1 drp EACH EYE QHS 07/29/14 [History Last Taken 09/24/18] omega-3 fatty acids-fish oil 300 mg-1,000 mg capsule 1 ea PO DAILY 07/29/14 [History Last Taken 09/25/18] nateglinide 60 mg tablet 60 mg PO TID BLOOD GLUCOSE 08/27/17 [History Last Taken 09/25/18 08:00] aspirin 81 mg chewable tablet 81 mg PO DAILY HEART HEALTH 06/26/18 [History Last Taken 09/24/18] metoprolol succinate 50 mg tablet,extended release 24 hr 25 mg PO BID HTN 06/26/18 [History Last Taken 09/25/18] Cardio [place] Healthy 1 cap PO DAILY SUPPLEMENT 05/22/20 [History Last Taken Unknown] amlodipine 5 mg tablet (Norvasc) 5 mg PO DAILY HTN 11/09/21 [History Last Taken Unknown] lisinopril 20 mg tablet 20 mg PO BID HTN 11/09/21 [History Last Taken Unknown] hydralazine 25 mg tablet 50 mg PO QHS HTN 03/18/22 [History Last Taken Unknown] artery cleanse 1 tab PO DAILY 04/01/22 [History Last Taken Unknown] cholecalciferol (vitamin D3) 125 mcg (5,000 unit) capsule 125 mcg PO DAILY 04/01/22 [History Last Taken Unknown] cinnamon bark 500 mg capsule (Cinnamon) 500 mg PO DAILY 04/01/22 [History Last Taken Unknown] circu max gold 1 dose PO DAILY SUPPLEMENT 04/01/22 [History Last Taken Unknown] liver supplement 1 cap PO QHS SUPPLEMENT 04/01/22 [History Last Taken Unknown] silver 2 tsp PO DAILY SUPPLEMENT 04/01/22 [History Last Taken Unknown] hydrocodone-acetaminophen 5-325mg 5mg-325mg 1 tab PO Q8H PRN pain 2 days #5 tabs 04/30/22 [Rx Last Taken Unknown] Allergy/AdvReac Type Severity Reaction Status Date / Time morphine AdvReac Intermediate mental Verified 05/14/22 20:21 status change meperidine HCl [From Demerol] AdvReac Mild mental Verified 05/14/22 20:21 status change Family History Brother Diabetes Heart disease Hypertension Lung cancer Mother Hypertension Brother Colon cancer 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 housing: house Smoking Status: Never smoker alcohol intake: never substance use type: does not use what type of physical activity do you participate in: none seatbelt use: always do you feel safe at home: Yes ROS ROS ED ROS Narrative Constitutional: Endorses fever and chills HEENT: Denies sore throat Neck: Denies neck pain Cardiovascular: Denies chest pain, syncope Respiratory: Denies shortness of breath GI: Denies nausea vomiting or abdominal pain : Denies changes in urinary habits Musculoskeletal: Denies muscle or joint pain Neurologic: Denies numbness weakness or loss of sensation, endorses headache Skin endorses skin redness and tenderness palpation of the right breast EXAM Physical Exam Narrative Exam Narrative: Nursing triage notes reviewed, Vital signs reviewed Constitutional: please see mdm HENT: MMM Eyes: Pupils equal round and reactive to light, Extraocular muscles intact Neck: No stridor, no JVD, full neck ROM Breast: Right breast edematous, swollen with confluent erythema, no obvious purulent drainage incision sites are clean dry and intact no obvious fluctuance induration, crepitus or bullae Lungs: Clear to auscultation, No wheezing or rales. No increased work of breathing, no conversational dyspnea, no accessory muscle use, no nasal flaring. No respiratory distress noted Heart: Regular rate and rhythm, No murmurs, No rubs and No gallops, 2+ distal pulses (radial, femoral, posterior tibial) in all extremities Abdomen: Soft, there is no tenderness, rigidity, rebound or guarding, no obvious peritoneal signs, no palpable pulsatile abdominal masses, no auscultated abdominal bruit : No CVAT Extremities: No edema Neuro: No focal neurological deficits, cranial nerves II through XII intact, 5/5 strength in all extremities. Intact sensation to light touch in all extremities, 2+ reflexes bilateral patella dens. Normal gait. No ataxia. Negative Kernig's and presents coffey sign no meningeal signs Skin: No rash or lesions noted Const Vital Signs: 05/14/22 20:21 05/14/22 22:08 05/14/22 23:01 Temperature 99.1 F Temperature Source Temporal Pulse Rate 68 68 Respiratory Rate 26 H 16 Respiratory Effort Normal Non-Labored Blood Pressure 191/61 H 214/50 H Blood Pressure Mean 104 104 Pulse Ox 95 86 Oxygen Delivery Method Room Air Room Air Oxygen Flow Rate (L/min) 05/14/22 23:05 05/14/22 23:08 Temperature 100.2 F H Temperature Source Oral Pulse Rate 66 Respiratory Rate 16 Respiratory Effort Blood Pressure 189/42 H Blood Pressure Mean 91 Pulse Ox 92 92 Oxygen Delivery Method Nasal Cannula Nasal Cannula Oxygen Flow Rate (L/min) 2 2 MDM MDM MDM Narrative Medical decision making narrative: 86-year-old female here with concern for fever and chills temperature is 100.1 orally at home. This in the setting of recent breast biopsy complication by seroma status post drainage. Exam concerning for ongoing infection with cellulitic changes swelling and TTP over right breast. No obvious necrotizing fasciitis noted on exam,no crepitus or bullae. Given the patient's age and concern for fever and chills and tactile fevers as well as borderline temperatures at home I obtained a broad lab and imaging work-up to further elucidate etiology of patient complaints. Specifically obtained a CT scan of the chest to rule out breast abscess. Obtained blood cultures, urine culture obtained a lactate level gave a liter of normal saline. Labs with leukocytosis, evidence of UTI. Patient continued to have elevated blood pressures, tachypnea resolved, patient was noted to be hypoxic transiently. Placed on [address] scan by my read shows evidence of chest wall abscess as well as seroma with fat stranding. Awaiting final read. Urine with evidence of inflammation. Gave broad-spectrum antibiotics. Did consult general surgery. Spoke to Dr. Keenan who will come evaluate the patient. Disposition pending surgical evaluation will likely admit to surgery versus medicine depending on Dr. Keenan evaluation. Signed out to PM physician pending surgery eval and final disposition. Lab Data Attestation: I reviewed the patient's lab results. Lab results narrative: CBC with leukocytosis suggestive of systemic inflammation, no significant anemia or thrombocytopenia BMP without significant electrolyte abnormalities, no anion gap, no acute kidney injury Lactate is wnl indicating no end-organ hypoperfusion and/or hypoxia. UA with evidence of UTI will send for culture Labs: Laboratory Results - last 24 hr 05/14/22 05/14/22 05/14/22 22:02 22:02 22:02 WBC 12.2 H RBC 4.31 Hgb 12.6 Hct 38.2 MCV 88.6 MCH 29.2 MCHC 33.0 RDW Std Deviation 44.1 H RDW Coeff of Pedro 13.6 Plt Count 258 MPV 10.4 Sodium 137 Potassium 4.7 Chloride 107 Carbon Dioxide 26.0 Anion Gap 4 L BUN 33 H Creatinine 1.30 H Estim Creat Clear Calc 23.87 Est GFR (MDRD) Af Amer 50 L Est GFR (MDRD) Non-Af 41 L BUN/Creatinine Ratio 25.4 H Glucose 98 Lactic Acid 0.9 Calcium 9.7 Urine Color Urine Clarity Urine pH Ur Specific [place] Urine Protein Urine Glucose (UA) Urine Ketones Urine Occult Blood Urine Nitrite Urine Bilirubin Urine Urobilinogen Ur Leukocyte Esterase Urine RBC Urine WBC Ur Squamous Epith Cells Urine Bacteria Urine Mucus 05/14/22 22:02 WBC RBC Hgb Hct MCV MCH MCHC RDW Std Deviation RDW Coeff of Pedro Plt Count MPV Sodium Potassium Chloride Carbon Dioxide Anion Gap BUN Creatinine Estim Creat Clear Calc Est GFR (MDRD) Af Amer Est GFR (MDRD) Non-Af BUN/Creatinine Ratio Glucose Lactic Acid Calcium Urine Color Straw Urine Clarity Clear Urine pH 7.0 Ur Specific Fortine 1.010 Urine Protein 30 H Urine Glucose (UA) Normal Urine Ketones Negative Urine Occult Blood Negative Urine Nitrite Positive H Urine Bilirubin Negative Urine Urobilinogen Normal Ur Leukocyte Esterase 500 H Urine RBC 0 SEEN Urine WBC 5-10 SEEN Ur Squamous Epith Cells 5-10 SEEN Urine Bacteria 1+ Urine Mucus 0 SEEN Discharge Plan Triage Chief Complaint: Fever ED Provider: Venkat Burnham Dx/Rx/DC Orders Clinical Impression: Cellulitis of breast, Seroma, postoperative, Leukocytosis Prescriptions: No Action metoprolol succinate 50 mg tablet extended release 24 hr 25 mg PO BID Cardio [place] Healthy 1 cap PO DAILY lisinopril 20 mg tablet 20 mg PO BID Label Comments: TAKE 1 TABLET BY MOUTH EVERY DAY amlodipine [Norvasc] 5 mg tablet 5 mg PO DAILY hydralazine 25 mg tablet 50 mg PO QHS cholecalciferol (vitamin D3) 125 mcg (5,000 unit) capsule 125 mcg PO DAILY artery cleanse 1 tab PO DAILY cinnamon bark [Cinnamon] 500 mg capsule 500 mg PO DAILY silver 2 tsp PO DAILY circu max gold 1 dose PO DAILY liver supplement 1 cap PO QHS latanoprost 1 DROP bottle 1 drp EACH EYE QHS Label Comments: EYE HEALTH ascorbic acid (vitamin C) 500 MG tablet 500 mg PO DAILY@0800 Label Comments: suppliment omega-3 fatty acids-fish oil 1 EACH capsule 1 ea PO DAILY Label Comments: supplement aspirin 81 mg tablet,chewable 81 mg PO DAILY Label Comments: PT'S LAST DOSE OF ASPIRIN WILL BE 04/26/2022 nateglinide 60 MG tablet 60 mg PO TID Label Comments: diabetes hydrocodone-acetaminophen 5-325 mg tablet 1 tab PO Q8H PRN (Reason: pain) 2 Days Qty: 5 0RF Primary Care Provider: Martina Lal Referrals: Martina Lal DO [Primary Care Provider] -
--- NOTE | 2022-05-14 21:51 | CT_ITS ---
We are attempting to reach an attending provider to discuss findings. An addendum with communication details will be sent when the communication is complete. EXAM: CT CHEST WITHOUT INTRAVENOUS CONTRAST CLINICAL INDICATION: right breast pain redness recent seroma -- r/o abscess TECHNIQUE: Helically acquired images were obtained of the chest without intravenous contrast. This CT exam was performed using one or more of the following dose reduction techniques: automated exposure control, adjustment of the mA and/or kV according to patient size, and/or use of iterative reconstruction technique. This report was created using [employer] report OONi technology. RADIATION DOSE: Total DLP: 741.08 mGy-cm. COMPARISON: Abdominal pelvic CT of 02/25/2022. FINDINGS: LUNGS AND PLEURAL SPACES: Minimal left pleural effusion. Bibasilar atelectasis, greater on the left. No pulmonary nodules. No pneumothorax. HEART: Extensive coronary artery calcification. Trace of pericardial fluid. MEDIASTINUM: Minimal hiatal hernia. Normal sized mediastinal lymph nodes. No mediastinal adenopathy. THYROID: Unremarkable. No thyroid lesions. BONES/JOINTS: Thoracic degenerative spurring. Accentuated thoracic kyphosis. Fusion of most of the thoracic facet joints. No acute fracture. No suspicious lytic or blastic abnormality. SOFT TISSUES: Within the right axillary region is a thin-walled fluid collection of water attenuation, measuring 8.4 cm in cephalocaudal dimension by 5.5 cm in AP diameter by 3.6 cm in transverse diameter. This fluid collection shows no internal air bubbles or surrounding fat stranding, and is consistent with seroma. There are adjacent surgical clips. More inferiorly, within the inferior lateral right breast, is a larger fluid collection which shows a thickened wall, internal air bubbles and surrounding fat stranding; this more inferior fluid collection measures 6.7 cm in transverse diameter by 5.7 cm in cephalocaudal dimension by 5.6 cm in AP diameter. Small surgical clips are noted about this fluid collection. There is mild overlying skin thickening. VASCULATURE: Thoracic aorta is calcific and is normal in caliber. No aneurysm or intimal calcification displacement. UPPER ABDOMEN Gallbladder is absent. Visualized portions of the liver, spleen, pancreas, and right adrenal gland are unremarkable. Left adrenal gland contains a 2.3 cm isodense nodule with CT attenuation of 46, unchanged as compared to prior CT of 03/11. KIDNEYS AND URETERS: The left kidney remains small/atrophic. At the upper pole the right kidney is a 1.8 cm exophytic nodule of water attenuation, consistent with simple cyst,, unchanged, and which requires no follow-up. INTRAPERITONEAL SPACE: No pneumoperitoneum is noted. CT/Chest without Contrast IMPRESSION: Findings consistent with 8.4 cm seroma within the right axilla. More inferiorly, a thick-walled 6.7 cm fluid collection with internal air bubbles and surrounding fat stranding is noted within the inferior-lateral right breast, consistent with abscess. Nonstandard communication protocol initiated. Electronically Signed: Hao Yan MD at 23:53 EDT ,
[2022-05-14] MEDS: 0.9% Normal Saline 1,000 ML 999 ML IV (22:13)
[2022-05-14 22:18] LABS: Hematocrit 38.2 % (37-47); Hemoglobin 12.6 g/dL (12.0-15.0); Mean Corpuscular Hgb 29.2 pg (27.0-32.0); Mean Corpuscular Volume 88.6 fL (81-99); Mean Platelet Vol. 10.4 fl (6.2-12.0); Platelet Count 258 K/mm3 (150-450); RBC Distribution Width CV 13.6 % (11.6-14.6); RBC Distribution Width SD 44.1 fl (35.1-43.9); Red Blood Count 4.31 M/mm3 (4.2-5.4); White Blood Count 12.2 K/mm3 (4.4-11.0)
[2022-05-14 22:32] LABS: Anion Gap 4 (5-15); BUN 33 mg/dL (7-18); BUN/Creat Ratio 25.4 RATIO (10-20); Calcium,Total 9.7 mg/dL (8.5-10.1); Chloride 107 mmol/L (98-107); EST Glomerular Filtration Rate 41 mL/min (>60); Est Glom Filt Rate - Afr Amer 50 mL/min (>60); Estimated Creatinine Clearance 23.87 ml/min; Glucose 98 mg/dL (74-106); Potassium 4.7 mmol/L (3.5-5.1); Sodium Level 137 mmol/L (136-145)
[2022-05-14 22:35] LABS: Lactic Acid 0.9 mmol/L (0.4-1.9); Mucous, Urine 0 SEEN /hpf (<or=2+); Red Blood Cells-Urine 0 SEEN /hpf (0-5)
[2022-05-14 22:39] LABS: Color, Urine Straw (Yellow); Glucose, Dipstick Normal (Normal); Ketone-Dipstick Negative (Negative); Leukocyte Esterase-Dipstick 500 /ul (Negative); Nitrite-Dipstick Positive (Negative); Occult Blood-Urine Negative /ul (Negative); Protein-Dipstick 30 mg/dl (Negative); Urine Bilirubin Dipstick Negative (Negative); Urine Clarity Clear (Clear); Urine Urobilinogen Normal (Normal)
[2022-05-14 22:54] LABS: Bacteria 1+ /hpf (None Seen); Squamous Epithelial Cells - UA 5-10 SEEN /hpf (5-10); White Blood Cells 5-10 SEEN /hpf (0-5)
[2022-05-14 23:01] VITALS: BP 214/50; PULSE 68; RESP 16; O2SAT 86
[2022-05-14 23:05] VITALS: BP 189/42; PULSE 66; RESP 16; TEMP 37.9; O2SAT 92
[2022-05-14 23:08] VITALS: O2SAT 92
[2022-05-14] MEDS: Vancomycin IV 1,000 MG/200 ML BAG 200 MG IV (23:39)
[2022-05-15] VITALS (27 sets, daily range): BP systolic 135–203; BP diastolic 37–70; PULSE 56–94; RESP 16–20; TEMP 36.4–38.3; O2SAT 92–94; BMI 43.6
--- NOTE | 2022-05-15 00:07 | EX.PCM.CON.S ---
Assessment & Plan Assessment/Plan (1) Seroma, postoperative: PLAN: Patient is an 86-year-old female who is just over 2 weeks out from right partial mastectomy with sentinel lymph node biopsy. Postoperatively, patient developed a seroma at her lumpectomy site. This has undergone serial drainage as an outpatient, and patient was due for possible seroma catheter insertion. Given spreading erythema over this site and air inside of the cavity, it is possible that patient has developed a secondary infection of this area. Alternatively, air in this area could be from recent instrumentation of the cavity with aspiration drainage procedure just 2 days ago. With patient's urinalysis evidence of possible underlying urinary tract infection it is difficult to discern whether she has a SIRS response to her breast tissue, a underlying UTI, or both. Given patient's vitals?which show persistent low-grade fever and hypertensive urgency, emergency medicine has requested consideration of admission for closer monitoring and use of intravenous pharmacologic options for patient's hypertension. Surgery will continue to follow patient during inpatient stay and Dr. Mihcel will be notified of patient's admission to direct any further intervention on patient's surgical site fluid collection. HPI Consult Data Date of Consult: 05/15/22 HPI Narrative Reason for Consultation: Right breast pain, redness, history of seroma HPI Narrative: DEBBIE HANSON, is a 86 F who presents with her daughter for evaluation of a painful postoperative right breast incision site, fever, headache, and hypertension. Patient is well-known to surgery after a right partial mastectomy and sentinel lymph node biopsy on 04/30/[address] Michel. Patient has been seen as an outpatient on 2 separate occasions for drainage of seroma fluid at her lumpectomy site. She was scheduled for a third outpatient follow-up visit tomorrow for possible seroma cath placement. However, in the meantime she reports that she has had fevers with a T-max of 99.9 and chills. More significantly, she reports systolic blood pressures of over 200 mmHg. On her intake to the emergency department her systolic blood pressure was 214 mmHg. She confesses that she has not had all of her home antihypertensives this evening. Regarding her surgical site, Ms. Hanson believes that the area looks and feels better than it did a couple of days ago. ER work-up was also notable for urinalysis evidence of probable urinary tract infection. [facility] Medical History Ambulates with cane Arthritis Bilateral carotid artery stenosis Bilateral extracranial carotid artery stenosis Cancer Difficulty swallowing GERD (gastroesophageal reflux disease) History of edema History of IBS History of renal disease History of steroid therapy HTN (hypertension) Hyperlipidemia Leg cramps Non-smoker PONV (postoperative nausea and vomiting) Shortness of breath on exertion Sleep apnea Type 2 diabetes mellitus Wears glasses Wears hearing aid Home Medications ascorbic acid (vitamin C) 500 mg tablet 500 mg PO DAILY@0800 supplement 07/29/14 [History Last Taken 09/25/18] latanoprost 0.005 % eye drops 1 drp EACH EYE QHS 07/29/14 [History Last Taken 09/24/18] omega-3 fatty acids-fish oil 300 mg-1,000 mg capsule 1 ea PO DAILY 07/29/14 [History Last Taken 09/25/18] nateglinide 60 mg tablet 60 mg PO TID BLOOD GLUCOSE 08/27/17 [History Last Taken 09/25/18 08:00] aspirin 81 mg chewable tablet 81 mg PO DAILY HEART HEALTH 06/26/18 [History Last Taken 09/24/18] metoprolol succinate 50 mg tablet,extended release 24 hr 25 mg PO BID HTN 06/26/18 [History Last Taken 09/25/18] Cardio [place] Healthy 1 cap PO DAILY SUPPLEMENT 05/22/20 [History Last Taken Unknown] amlodipine 5 mg tablet (Norvasc) 5 mg PO DAILY HTN 11/09/21 [History Last Taken Unknown] lisinopril 20 mg tablet 20 mg PO BID HTN 11/09/21 [History Last Taken Unknown] hydralazine 25 mg tablet 50 mg PO QHS HTN 03/18/22 [History Last Taken Unknown] artery cleanse 1 tab PO DAILY 04/01/22 [History Last Taken Unknown] cholecalciferol (vitamin D3) 125 mcg (5,000 unit) capsule 125 mcg PO DAILY 04/01/22 [History Last Taken Unknown] cinnamon bark 500 mg capsule (Cinnamon) 500 mg PO DAILY 04/01/22 [History Last Taken Unknown] circu max gold 1 dose PO DAILY SUPPLEMENT 04/01/22 [History Last Taken Unknown] liver supplement 1 cap PO QHS SUPPLEMENT 04/01/22 [History Last Taken Unknown] silver 2 tsp PO DAILY SUPPLEMENT 04/01/22 [History Last Taken Unknown] hydrocodone-acetaminophen 5-325mg 5mg-325mg 1 tab PO Q8H PRN pain 2 days #5 tabs 04/30/22 [Rx Last Taken Unknown] Allergy/AdvReac Type Severity Reaction Status Date / Time morphine AdvReac Intermediate mental Verified 05/14/22 20:21 status change meperidine HCl [From Demerol] AdvReac Mild mental Verified 05/14/22 20:21 status change Family History Brother Diabetes Heart disease Hypertension Lung cancer Mother Hypertension Brother Colon cancer 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 There is significant tenderness here. There is also a series of interrupted sutures with crusted yellow drainage on adjacent bandage. Lab / Micro Data Result Diagrams: 05/14/22 22:02 05/14/22 22:02 Labs: Laboratory Results - last 24 hr 05/14/22 22:02: WBC 12.2 H, RBC 4.31, Hgb 12.6, Hct 38.2, MCV 88.6, MCH 29.2, MCHC 33.0, RDW Std Deviation 44.1 H, RDW Coeff of Pedro 13.6, Plt Count 258, MPV 10.4 05/14/22 22:02: Sodium 137, Potassium 4.7, Chloride 107, Carbon Dioxide 26.0, Anion Gap 4 L, BUN 33 H, Creatinine 1.30 H, Estim Creat Clear Calc 23.87, Est GFR (MDRD) Af Amer 50 L, Est GFR (MDRD) Non-Af 41 L, BUN/Creatinine Ratio 25.4 H, Glucose 98, Calcium 9.7 05/14/22 22:02: Lactic Acid 0.9 05/14/22 22:02: Urine Color Straw, Urine Clarity Clear, Urine pH 7.0, Ur Specific [place] 1.010, Urine Protein 30 H, Urine Glucose (UA) Normal, Urine Ketones Negative, Urine Occult Blood Negative, Urine Nitrite Positive H, Urine Bilirubin Negative, Urine Urobilinogen Normal, Ur Leukocyte Esterase 500 H, Urine RBC 0 SEEN, Urine WBC 5-10 SEEN, Ur Squamous Epith Cells 5-10 SEEN, Urine Bacteria 1+, Urine Mucus 0 SEEN Micro: Microbiology 05/14/22 22:07 Nasal Secretion SARS-CoV-2 & FLU Antigen (Rapid) - Final Radiology Impression Chest CT 05/14/22 21:51 IMPRESSION: Findings consistent with 8.4 cm seroma within the right axilla. More inferiorly, a thick-walled 6.7 cm fluid collection with internal air bubbles and surrounding fat stranding is noted within the inferior-lateral right breast, consistent with abscess. Nonstandard communication protocol initiated. Electronically Signed: Hao Yan MD at 23:53 EDT , ADDENDUM: 05/15/22 0006 IMPRESSION: Findings consistent with 8.4 cm seroma within the right axilla. More inferiorly, a thick-walled 6.7 cm fluid collection with internal air bubbles and surrounding fat stranding is noted within the inferior-lateral right breast, consistent with abscess. Nonstandard communication protocol initiated. N.B. : The above Results were Read Back by Hao Yan MD to Dr. Emery AA, and understanding confirmed on 05/14/2022 23:59:45 (ET). Electronically Signed: Hao Yan MD at 23:53 EDT ,
[2022-05-15] MEDS: Acetaminophen 500 MG Tablet 1000 MG PO ×3 (00:40→21:27)
--- NOTE | 2022-05-15 01:07 | HP.PCM.HOS_ITS ---
[facility] - General General Date of Admission: 05/15/22 Date of Service: 05/15/22 Chief Complaint: right axillary pain. [facility] Narrative DEBBIE KENNEY, is a 86 F who presents right axillary pain and swelling. Patient underwent an ultrasound-guided right breast partial mastectomy on the . Patient subsequently started having drainage and saw Dr. Michel on the and was felt to be due to a draining seroma. Went back again on the and saw the PA, who spoke with Dr. Michel, and recommended placing a seromacath. Since then, patient had been having fevers and chills and increased pain in her right axillary and breast area. The daughter states that the erythema actually is improved from previous but the pain is much more sore in that area. Patient had a CAT scan of her chest that showed an 8.4 cm seroma within the right axilla and inferiorly a thick-walled 6.7 cm fluid collection with internal air bubbles and surrounding fat stranding noted in the inferior lateral right breast consistent with an abscess. Patient was seen by surgery who was concerned about possible postoperative infection though did not comment specifically about abscess. Were more concerned about a urinary tract infection. [facility] Medical History Ambulates with cane Arthritis Bilateral carotid artery stenosis Bilateral extracranial carotid artery stenosis Cancer Difficulty swallowing GERD (gastroesophageal reflux disease) History of edema History of IBS History of renal disease History of steroid therapy HTN (hypertension) Hyperlipidemia Leg cramps Non-smoker PONV (postoperative nausea and vomiting) Shortness of breath on exertion Sleep apnea Type 2 diabetes mellitus Wears glasses Wears hearing aid Home Medications ascorbic acid (vitamin C) 500 mg tablet 500 mg PO DAILY@0800 supplement 07/29/14 [History Last Taken 09/25/18] latanoprost 0.005 % eye drops ([place]) 1 drp EACH EYE QHS 07/29/14 [History Last Taken 09/24/18] omega-3 fatty acids-fish oil 300 mg-1,000 mg capsule 1 ea PO DAILY 07/29/14 [History Last Taken 09/25/18] nateglinide 60 mg tablet 60 mg PO TID BLOOD GLUCOSE 08/27/17 [History Last Taken 09/25/18 08:00] aspirin 81 mg chewable tablet 81 mg PO DAILY HEART HEALTH 06/26/18 [History Last Taken 09/24/18] metoprolol succinate 50 mg tablet,extended release 24 hr 25 mg PO BID HTN 06/26/18 [History Last Taken 09/25/18] Cardio [place] Healthy 1 cap PO DAILY SUPPLEMENT 05/22/20 [History Last Taken Unknown] amlodipine 5 mg tablet (Norvasc) 5 mg PO DAILY HTN 11/09/21 [History Last Taken Unknown] lisinopril 20 mg tablet 20 mg PO BID HTN 11/09/21 [History Last Taken Unknown] hydralazine 25 mg tablet 50 mg PO QHS HTN 03/18/22 [History Last Taken Unknown] artery cleanse 1 tab PO DAILY 04/01/22 [History Last Taken Unknown] cholecalciferol (vitamin D3) 125 mcg (5,000 unit) capsule 125 mcg PO DAILY 04/01/22 [History Last Taken Unknown] cinnamon bark 500 mg capsule (Cinnamon) 500 mg PO DAILY 04/01/22 [History Last Taken Unknown] circu max gold 1 dose PO DAILY SUPPLEMENT 04/01/22 [History Last Taken Unknown] liver supplement 1 cap PO QHS SUPPLEMENT 04/01/22 [History Last Taken Unknown] silver 2 tsp PO DAILY SUPPLEMENT 04/01/22 [History Last Taken Unknown] clonidine HCl 0.1 mg tablet 0.1 mg PO QHS 05/15/22 [History Last Taken Unknown] Allergy/AdvReac Type Severity Reaction Status Date / Time morphine AdvReac Intermediate mental Verified 05/14/22 20:21 status change meperidine HCl [From Demerol] AdvReac Mild mental Verified 05/14/22 20:21 status change Family History Brother Diabetes Heart disease Hypertension Lung cancer Mother Hypertension Brother Colon cancer 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 Vital Signs Vital Signs Vital Signs: 05/14/22 20:21 05/14/22 22:08 05/14/22 23:01 Temperature 37.3 C Temperature Source Temporal Pulse Rate 68 68 Respiratory Rate 26 H 16 Respiratory Effort Normal Non-Labored Blood Pressure 191/61 H 214/50 H Blood Pressure Mean 104 104 Pulse Ox 95 86 Oxygen Delivery Method Room Air Room Air Oxygen Flow Rate (L/min) 05/14/22 23:05 05/14/22 23:08 05/15/22 00:18 Temperature 37.9 C H 38.3 C H Temperature Source Oral Oral Pulse Rate 66 64 Respiratory Rate 16 16 Respiratory Effort Blood Pressure 189/42 H 199/48 H Blood Pressure Mean 91 98 Pulse Ox 92 92 93 Oxygen Delivery Method Nasal Cannula Nasal Cannula Nasal Cannula Oxygen Flow Rate (L/min) 2 2 2 Weight Weight: 104.326 kg Body Mass Index (BMI) 43.4 Physical Exam Const alert and no apparent distress HEENT normocephalic, head/scalp atraumatic, hearing grossly normal bilaterally and moist oral mucous membranes Neck no lymphadenopathy Resp normal respiratory effort, no retractions, no use of accessory muscles and clear to auscultation bilaterally Cardio regular rate, regular rhythm, S1 normal heart sound and S2 normal heart sound GI normal to inspection, nondistended, normoactive bowel sounds, soft to palpation, non-tender and non-distended Extremity Extremity Narrative: Bilateral lower extremity edema. Skin Skin Narrative: Erythema on the right lateral breast with exquisite tenderness to palpation. Slight dehiscence of the wound on the right lateral breast. No purulence can be expressed. Neuro Sensorium / Orientation: awake and alert Psych affect normal Results Lab / Micro Data Result Diagrams: 05/14/22 22:02 05/14/22 22:02 Labs: Laboratory Results - last 24 hr 05/14/22 22:02: WBC 12.2 H, RBC 4.31, Hgb 12.6, Hct 38.2, MCV 88.6, MCH 29.2, MCHC 33.0, RDW Std Deviation 44.1 H, RDW Coeff of Pedro 13.6, Plt Count 258, MPV 10.4 05/14/22 22:02: Sodium 137, Potassium 4.7, Chloride 107, Carbon Dioxide 26.0, Anion Gap 4 L, BUN 33 H, Creatinine 1.30 H, Estim Creat Clear Calc 23.87, Est GFR (MDRD) Af Amer 50 L, Est GFR (MDRD) Non-Af 41 L, BUN/Creatinine Ratio 25.4 H , Glucose 98, Calcium 9.7 05/14/22 22:02: Lactic Acid 0.9 05/14/22 22:02: Urine Color Straw, Urine Clarity Clear, Urine pH 7.0, Ur Specific [place] 1.010, Urine Protein 30 H, Urine Glucose (UA) Normal, Urine Ketones Negative, Urine Occult Blood Negative, Urine Nitrite Positive H, Urine Bilirubin Negative, Urine Urobilinogen Normal, Ur Leukocyte Esterase 500 H, Urine RBC 0 SEEN, Urine WBC 5-10 SEEN, Ur Squamous Epith Cells 5-10 SEEN, Urine Bacteria 1+, Urine Mucus 0 SEEN Micro: Microbiology 05/14/22 22:07 Nasal Secretion SARS-CoV-2 & FLU Antigen (Rapid) - Final Radiology Impression Chest CT 05/14/22 21:51 IMPRESSION: Findings consistent with 8.4 cm seroma within the right axilla. More inferiorly, a thick-walled 6.7 cm fluid collection with internal air bubbles and surrounding fat stranding is noted within the inferior-lateral right breast, consistent with abscess. Nonstandard communication protocol initiated. Electronically Signed: Hao Yan MD at 23:53 EDT , ADDENDUM: 05/15/22 0006 IMPRESSION: Findings consistent with 8.4 cm seroma within the right axilla. More inferiorly, a thick-walled 6.7 cm fluid collection with internal air bubbles and surrounding fat stranding is noted within the inferior-lateral right breast, consistent with abscess. Nonstandard communication protocol initiated. N.B. : The above Results were Read Back by Hao Yan MD to AG Benson, and understanding confirmed on 05/14/2022 23:59:45 (ET). Electronically Signed: Hao Yan MD at 23:53 EDT , Assessment & Plan Assessment/Plan (1) Cellulitis of breast: PLAN: And possible abscess. Seen by surgery in the emergency room and consult reviewed. Patient received piperacillin/tazobactam and vancomycin in the emergency room. I will continue those antibiotics No wound culture have been ordered so I will order that. Results may skew negative since patient has already been on antibiotics Surgery on consultation. No imminent plans for further surgery. We will follow-up with her consultations. (2) Abnormal urinalysis: PLAN: Patient has positive nitrates 500 leukoesterase 1+ bacteria, however, only 5-10 white blood cells. Therefore, I do not feel the patient has a urinary tract infection. Patient may have asymptomatic bacteriuria. Patient is on antibiotics for what is concerning for cellulitis of her right breast and a possible abscess. (3) Hypertensive urgency: PLAN: Continue with amlodipine 5 mg daily, lisinopril 20 mg twice daily, metoprolol succinate 50 mg daily, and clonidine 0.1mg nightly. Will change her hydralazine from 50 nightly to 50, 3 times daily Also add clonidine 0.1mg 4 times daily as needed for systolic blood pressure greater than 180 PLAN: Plan Chronic conditions * Diabetes mellitus type 2: Continue with nateglinide. 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 Negative for HER2/lc. Follow-up with oncology as outpatient * CKD 3B: Stable. Patient to follow-up with nephrology as outpatient. VTE prophylaxis with SCDs. Holding off on chemical prophylaxis in anticipation of potential surgical intervention Charges/Coding Visit Charges Inpatient E&M: 10128 Init Hosp L3
--- NOTE | 2022-05-15 03:35 | PCM.RX.CS ---
Consult Pharmacy has been consulted to manage selected antiobiotic: Vancomycin Type of Consult: New start Labs: Sodium 137 mmol/L (136-145) 05/14/22 22:02 Potassium 4.7 mmol/L (3.5-5.1) 05/14/22 22:02 Chloride 107 mmol/L (98-107) 05/14/22 22:02 Carbon Dioxide 26.0 mmol/L (21.0-32.0) 05/14/22 22:02 Anion Gap 4 (5-15) L 05/14/22 22:02 BUN 33 mg/dL (7-18) H 05/14/22 22:02 Creatinine 1.30 mg/dL (0.55-1.02) H 05/14/22 22:02 Est GFR (MDRD) Af Amer 50 mL/min (>60) L 05/14/22 22:02 Est GFR (MDRD) Non-Af 41 mL/min (>60) L 05/14/22 22:02 BUN/Creatinine Ratio 25.4 RATIO (10-20) H 05/14/22 22:02 Glucose 98 mg/dL (74-106) 05/14/22 22:02 Microbiology: Microbiology 05/14/22 22:07 Nasal Secretion SARS-CoV-2 & FLU Antigen (Rapid) - Final Weight used for dosin.7 kg Estimated Creatinine Clearance: 44.4 Goal Trough: 15-20 mcg/mL Pharmacy Plan for Drug Dosing: Pharmacy Service will continue to monitor and adjust dosing as required. Medications Vancomycin HCl 750 mg/ Sodium (Chloride) 265 mls @ 250 mls/hr IV Q12H JORDEN Discontinued Medications Vancomycin HCl (Vancomycin) 1,000 mg in 200 mls @ 200 mls/hr IV X1 ONE Stop: 05/14/22 23:59 Last Admin: 05/15/22 00:42 Dose: Infused Follow-Up Labs: Trough Vancomycin Labs to be done on [date and time ordered]: 05/16 @ 1100
--- NOTE | 2022-05-15 05:44 | PN.SURG_ITS ---
Subjective Subjective Patient notes that she feels improved over admission last night. Objective Data Objective Data Vital Signs: Vital Signs Temp Pulse Resp BP Pulse Ox O2 Del Method O2 Flow Rate 98.3 F 58 L 20 H 155/50 H 92 Nasal Cannula 2 05/15/22 02:46 05/15/22 02:46 05/15/22 02:46 05/15/22 02:46 05/15/22 02:46 05/15/22 03:15 05/15/22 03:15 Oxygen Flow Rate (L/min) 2 Oxygen Delivery Method Nasal Cannula Weight: 230 lb 13.184 oz Body Mass Index (BMI) 43.6 Intake & Output: Intake and Output for Last 24 Hours 05/13/22 05/14/22 05/15/22 23:59 23:59 23:59 Intake Total 1000 / 1000 250 / 250 Balance 1000 / 1000 250 / 250 Lab / Micro Data Result Diagrams: 05/14/22 22:02 05/14/22 22:02 Labs: Laboratory Results - last 24 hr 05/14/22 22:02: WBC 12.2 H, RBC 4.31, Hgb 12.6, Hct 38.2, MCV 88.6, MCH 29.2, MCHC 33.0, RDW Std Deviation 44.1 H, RDW Coeff of [place] 13.6, Plt Count 258, MPV 10.4 05/14/22 22:02: Sodium 137, Potassium 4.7, Chloride 107, Carbon Dioxide 26.0, Anion Gap 4 L, BUN 33 H, Creatinine 1.30 H, Estim Creat Clear Calc 23.87, Est GFR (MDRD) Af Amer 50 L, Est GFR (MDRD) Non-Af 41 L, BUN/Creatinine Ratio 25.4 H , Glucose 98, Calcium 9.7 05/14/22 22:02: Lactic Acid 0.9 05/14/22 22:02: Urine Color Straw, Urine Clarity Clear, Urine pH 7.0, Ur Speci fic [place] 1.010, Urine Protein 30 H, Urine Glucose (UA) Normal, Urine Ketones Negative, Urine Occult Blood Negative, Urine Nitrite Positive H, Urine Bilirubin Negative, Urine Urobilinogen Normal, Ur Leukocyte Esterase 500 H, Urine RBC 0 SEEN, Urine WBC 5-10 SEEN, Ur Squamous Epith Cells 5-10 SEEN, Urine Bacteria 1+, Urine Mucus 0 SEEN Micro: Microbiology 05/14/22 22:07 Nasal Secretion SARS-CoV-2 & FLU Antigen (Rapid) - Final Radiography Diagnostic Testing: Radiology Impression Chest CT 05/14/22 21:51 IMPRESSION: Findings consistent with 8.4 cm seroma within the right axilla. More inferiorly, a thick-walled 6.7 cm fluid collection with internal air bubbles and surrounding fat stranding is noted within the inferior-lateral right breast, consistent with abscess. Nonstandard communication protocol initiated. Electronically Signed: Hao Yan MD at 23:53 EDT , ADDENDUM: 05/15/22 0006 IMPRESSION: Findings consistent with 8.4 cm seroma within the right axilla. More inferiorly, a thick-walled 6.7 cm fluid collection with internal air bubbles and surrounding fat stranding is noted within the inferior-lateral right breast, consistent with abscess. Nonstandard communication protocol initiated. N.B. : The above Results were Read Back by Hao Yan MD to Dr. Emery, AA, and understanding confirmed on 05/14/2022 23:59:45 (ET). Electronically Signed: Hao Yan MD at 23:53 EDT , Physical Exam Resp Resp Narrative: Right breast erythema with tenderness at the lumpectomy site Much less right axillary fullness with no erythema at that incision Assessment & Plan Assessment/Plan (1) Infected seroma, postoperative: PLAN: Findings are consistent with an infected right breast lumpectomy seroma with mastitis. It is less clear as to whether there is concomitant infection of the right axillary area that appears to be more excluded. I have made the patient n.p.o. and plan for operative evacuation of the lumpectomy site. I have recommended the patient open drainage and packing but she states that this would be too uncomfortable and difficult to manage. Therefore we will consider drain placement. I anticipate that her recovery should be able to be expedited. We will add her onto the operative list this morning. I very much appreciate all involved in assisting with her care. Michael Michel M.D., F.A.C.S.
[2022-05-15] MEDS: hydrALAZINE 50 MG Tablet PO ×2 (06:18→15:42)
[2022-05-15 06:45] LABS: Bedside Glucose 105 mg/dL (74-106)
--- NOTE | 2022-05-15 06:58 | EKG12_ITS ---
Test Reason : PREOP Blood Pressure : / mmHG Vent. Rate : 069 BPM Atrial Rate : 083 BPM P-R Int : 210 ms QRS Dur : 090 ms QT Int : 390 ms P-R-T Axes : 081 023 069 degrees QTc Int : 417 ms Sinus rhythm with 2nd degree A-V block (Mobitz II) Abnormal ECG When compared with ECG of 25-APR-2022 10:09, Sinus rhythm is now with 2nd degree A-V block (Mobitz II) Confirmed by LAMINE LAINEZ, DANGELO ([id number]), video editor MANASA EGAN ([id number]) on 05/17/2022 2:40:41 P M Referred By: ELAINA Confirmed By:ALESSIO RAMAN MD
[2022-05-15 07:08] LABS: Absolute Lymphocyte Count 2.76 X10^3/uL (0.83-4.51); Absolute Neutrophil Count 6.5 X10^3/uL (2.0-7.7); Basophil# 0.05 X10^3/uL; Basophil% 0.5 % (0-1); Eosinophil# 0.16 X10^3/uL; Eosinophils% 1.5 % (0-5); Hematocrit 33.4 % (37-47); Hemoglobin 11.5 g/dL (12.0-15.0); Lymphocyte # 2.76 X10^3/ul (0.83-4.51); Lymphocyte % 25.8 % (19-41); Mean Corp Hgb Conc 34.4 g/dL (32-36); Mean Corpuscular Hgb 30.5 pg (27.0-32.0); Mean Corpuscular Volume 88.6 fL (81-99); Mean Platelet Vol. 10.1 fl (6.2-12.0); Monocyte# 1.23 X10^3/uL; Monocyte% 11.5 % (0-10); NRBC Flagged by Analyzer 0 % (0-5); Neutrophil # 6.47 X10^3/uL (2.7-7.7); Neutrophil % 60.4 % (47-70); Platelet Count 232 K/mm3 (150-450); RBC Distribution Width CV 13.4 % (11.6-14.6); RBC Distribution Width SD 43.8 fl (35.1-43.9); Red Blood Count 3.77 M/mm3 (4.2-5.4); White Blood Count 10.7 K/mm3 (4.4-11.0)
[2022-05-15 07:48] LABS: Anion Gap 5 (5-15); BUN 29 mg/dL (7-18); BUN/Creat Ratio 23.2 RATIO (10-20); Calcium,Total 9.1 mg/dL (8.5-10.1); Chloride 107 mmol/L (98-107); Creatinine, Serum 1.25 mg/dL (0.55-1.02); EST Glomerular Filtration Rate 43 mL/min (>60); Est Glom Filt Rate - Afr Amer 52 mL/min (>60); Estimated Creatinine Clearance 24.83 ml/min; Glucose 111 mg/dL (74-106); Potassium 4.6 mmol/L (3.5-5.1); Sodium Level 136 mmol/L (136-145)
--- NOTE | 2022-05-15 08:51 | WOUNDNOTE ---
Pt getting ready to be taken down for surgery. will follow patient post op as needed.
[2022-05-15] MEDS: Metoprolol(XL)Succ 25 MG Tablet PO ×2 (08:56→21:26)
--- NOTE | 2022-05-15 12:43 | OP.PCM_ITS ---
Report of Operation Date of Procedure: 05/15/22 Pre-Operative Diagnosis: Right axillary seroma Infected upper outer quadrant right breast seroma Post-Operative Diagnosis: Seen Surgery/Procedure Performed:: Ultrasound-guided fine-needle aspiration aspiration right axillary seroma Open debridement and evacuation of upper outer quadrant right breast seroma Description of Surgical Findings:: Timeout informed consent was obtained. 86-year-old female was taken to the operating placed upon the table underwent general anesthesia the right arm was placed at right angles to the table she received her routine therapeutic antibiotic as prescribed by internal medicine. This included vancomycin. The upper outer quadrant of the right breast sterilely copiously prepped and draped. Ultrasound was used to identify the right axillary seroma and staying clear from the breast site there is a 22-gauge needle was able to aspirate 55 cc of quite light yellow clear fluid. I was able to achieve complete aspiration of that pocket. 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 Having reopen the pocket evacuated copious seroma fluid I then irrigated the pocket and did rough debridement with Ray-Laurie gauze. Cavity appeared to already have granulation tissue present. The patient had requested that this cavity not be packed so laterally I replaced 2 loose sutures of 3-0 nylon and then placed a 1/2 inch Carol drain to the cavity. The drain is secured with nylon suture and safety pin. Sterile dressings were applied. She tolerated the procedure well no apparent complication. Specimens include right axillary seroma fluid sent for culture and sensitivity. Culture and sensitivity obtained from the right breast seroma collection. Drains half-inch Carol drain to the breast. Pathology specimens none. Blood loss minimal. Michael Michel M.D., F.A.C.S. Surgeon: Michael Michel Type of Anesthesia: General Anesthesiologist: Noe Garcia
--- NOTE | 2022-05-15 13:14 | CHAPLAIN ---
Type of Pastoral Visit ___ Initial Visit ___ Follow-up Visit ___ On-call Visit ___ General Patient Visit ___ Spiritual Assessment ___ Family Conference ___ Bereavement ___ Rapid Response ___ Code Blue ___ Other (describe below) Pastoral Care Referral From ___ Patient ___ Family ___ Nurse ___ Physician ___ Human Resource Consultant ___ Animal Attendant ___ Other (describe below) Sacrament/Intervention ___ Active listening ___ Anointing ___ Alevism ___ Bereavement ___ Communion ___ Elenita exploration ___ ___ Life review ___ Prayer ___ Reconciliation ___ Sacrament of Sick ___ Supportive presence ___ Wedding ___ Other (describe below) Pastoral Comments patient is out of the room; calling card left
[2022-05-15] MEDS: Ipratropium/Albuterol Sulfate 3 ML AMPUL.NEB INHALATION (14:06)
[2022-05-15 14:10] LABS: Bedside Glucose 147 mg/dL (74-106)
--- NOTE | 2022-05-15 14:24 | CASEMGMT ---
RN CM to pt's room at 1358. Pt off floor. Will attempt RN CM assessment at a later time.
--- NOTE | 2022-05-15 14:27 | NURSING ---
talked with patient's daughter regarding visiting restriction/visiting hours as requesting to spend the night. patient advocate number given to patient's daughter.
--- NOTE | 2022-05-15 15:39 | PN.HOSP_ITS ---
Subjective Subjective Patient is a 86-year-old female who presented to the emergency department on 05/15/2022 early in the morning with right axillary pain and swelling. She underwent AN ultrasound-guided right breast partial mastectomy on 04/30/2022 and subsequently started having drainage. She saw Dr. Michel in his office on the and it was felt to be related to a draining seroma. She went back again on the and saw the PA who spoke with Dr. Lobo and he recommended placing seroma cath. Since that point time the patient began having fever and chills with increasing pain and erythema. A CAT scan of her chest showed an 8.4 seroma in the right axillary and showed an inferior thick-walled 6.7 cm fluid collection with internal air bubbles concerning with infection/abscess. The plan is to take her to the OR today and likely place a drain. She is on IV antibiotics. Cultures are pending. Objective Data Objective Data Vital Signs: Vital Signs Temp Pulse Resp BP Pulse Ox O2 Del Method O2 Flow Rate 98.8 F 68 18 149/45 H 93 Nasal Cannula 2 05/15/22 14:33 05/15/22 14:46 05/15/22 14:46 05/15/22 14:33 05/15/22 14:33 05/15/22 14:33 05/15/22 14:33 Oxygen Flow Rate (L/min) 2 Oxygen Delivery Method Nasal Cannula Weight: 104.7 kg Body Mass Index (BMI) 43.6 Intake & Output: Intake and Output for Last 24 Hours 05/13/22 05/14/22 05/15/22 23:59 23:59 23:59 Intake Total 1000 / 1000 565 / 565 Output Total 400 / 400 Balance 1000 / 1000 165 / 165 Lab / Micro Data Result Diagrams: 05/15/22 06:35 05/15/22 06:35 Labs: Laboratory Results - last 24 hr 05/14/22 22:02: WBC 12.2 H, RBC 4.31, Hgb 12.6, Hct 38.2, MCV 88.6, MCH 29.2, MCHC 33.0, RDW Std Deviation 44.1 H, RDW Coeff of Pedro 13.6, Plt Count 258, MPV 10.4 05/14/22 22:02: Sodium 137, Potassium 4.7, Chloride 107, Carbon Dioxide 26.0, Anion Gap 4 L, BUN 33 H, Creatinine 1.30 H, Estim Creat Clear Calc 23.87, Est GFR (MDRD) Af Amer 50 L, Est GFR (MDRD) Non-Af 41 L, BUN/Creatinine Ratio 25.4 H , Glucose 98, Calcium 9.7 05/14/22 22:02: Lactic Acid 0.9 05/14/22 22:02: Urine Color Straw, Urine Clarity Clear, Urine pH 7.0, Ur Specific [place] 1.010, Urine Protein 30 H, Urine Glucose (UA) Normal, Urine Ketones Negative, Urine Occult Blood Negative, Urine Nitrite Positive H, Urine Bilirubin Negative, Urine Urobilinogen Normal, Ur Leukocyte Esterase 500 H, Urine RBC 0 SEEN, Urine WBC 5-10 SEEN, Ur Squamous Epith Cells 5-10 SEEN, Urine Bacteria 1+, Urine Mucus 0 SEEN 05/15/22 06:10: POC Glucose 105 05/15/22 06:35: WBC 10.7, RBC 3.77 L, Hgb 11.5 L, Hct 33.4 L, MCV 88.6, MCH 30.5, MCHC 34.4, RDW Std Deviation 43.8, RDW Coeff of Pedro 13.4, Plt Count 232, MPV 10.1, Immature Gran % (Auto) 0.300, Neut % (Auto) 60.4, Lymph % (Auto) 25.8, [place] % (Auto) 11.5 H, Eos % (Auto) 1.5, Baso % (Auto) 0.5, Absolute Neuts (auto) 6.5, Absolute Lymphs (auto) 2.76, Nucleated RBC % 0 05/15/22 06:35: Sodium 136, Potassium 4.6, Chloride 107, Carbon Dioxide 24.0, Anion Gap 5, BUN 29 H, Creatinine 1.25 H, Estim Creat Clear Calc 24.83, Est GFR (MDRD) Af Amer 52 L, Est GFR (MDRD) Non-Af 43 L, BUN/Creatinine Ratio 23.2 H, Glucose 111 H, Calcium 9.1 05/15/22 13:52: POC Glucose 147 H Micro: Microbiology 05/15/22 12:51 Incision/Surgical Site Gram Stain - Final 05/15/22 12:49 Incision/Surgical Site Gram Stain - Final 05/14/22 22:02 Urine, Clean Catch Urine Culture - Preliminary Culture exhibits no growth. 05/15/22 03:15 Wound - Breast, Right Gram Stain - Final 05/14/22 22:07 Nasal Secretion SARS-CoV-2 & FLU Antigen (Rapid) - Final Radiography Diagnostic Testing: Radiology Impression Chest CT 05/14/22 21:51 IMPRESSION: Findings consistent with 8.4 cm seroma within the right axilla. More inferiorly, a thick-walled 6.7 cm fluid collection with internal air bubbles and surrounding fat stranding is noted within the inferior-lateral right breast, consistent with abscess. Nonstandard communication protocol initiated. Electronically Signed: Hao Yan MD at 23:53 EDT , ADDENDUM: 05/15/22 0006 IMPRESSION: Findings consistent with 8.4 cm seroma within the right axilla. More inferiorly, a thick-walled 6.7 cm fluid collection with internal air bubbles and surrounding fat stranding is noted within the inferior-lateral right breast, consistent with abscess. Nonstandard communication protocol initiated. N.B. : The above Results were Read Back by Hao Yan MD to Dr. Emery, AA, and understanding confirmed on 05/14/2022 23:59:45 (ET). Electronically Signed: Hao Yan MD at 23:53 EDT , Assessment & Plan Assessment/Plan (1) Infected seroma, postoperative: (2) Hypertensive urgency: (3) Abnormal urinalysis: (4) Cellulitis of breast: (5) Leukocytosis: PLAN: Plan Breast/axillary abscess -Continue broad-spectrum antibiotics -Await cultures -OR today with likely drain placement -Wound care consultation -Appreciate general surgery input Abnormal urinalysis -UA was slightly suspicious for infection however urine culture has no growth to date -UA showed leukoesterase and nitrites with minimal white cells and 1+ bacteria -Continue to monitor -Pathogens in the urine should be covered with antibiotics utilized for her above abscess at this point anyway CKD stage IIIb -Serum creatinine is stable -Baseline 1.1-1.3 -Continue to monitor -Avoid nephrotoxins -Has outpatient nephrology follow-up on Friday Sam type I second-degree heart block -Appears to have progressed from a first-degree heart block on previous EKGs -No current work-up needed at this time -Continue to monitor as an outpatient Hypertension -Continue home amlodipine -Continue home clonidine -Continue home hydralazine -Continue home lisinopril 40 -Continue Toprol -Monitor blood pressure as she has been having some difficulty at home with elevated pressures -We will check TSH with ongoing issues controlling pressure as an outpatient Invasive ductal carcinoma -ER/ID positive -Oncology follow-up as an outpatient DM-2 -Hold home oral agents -Check hemoglobin A1c with infection -Sliding scale insulin -Acute checks as ordered -Carb controlled cardiac diet once able to take n.p.o. History of glaucoma -Continue home eyedrop drops Bilateral carotid artery stenosis -Follow as an outpatient -No urgent issues -Continue home medication regimen Obstructive sleep apnea -Patient noncompliant at home at baseline -May need oxygen when sleeping -Monitor sats Generalized weakness/debility -PT/OT consultation -Have discussed with patient she may need placement at discharge if she remains weak -Case management consulted DVT prophylaxis -SCDs -We will start chemoprophylaxis tomorrow if no further surgical intervention is required
[2022-05-15] MEDS: Lisinopril 20 MG Tablet PO ×2 (15:44→21:26)
[2022-05-15] MEDS: Cholecalciferol (Vit D3) 125 MCG CAPSULE (5,000 UNITS) PO (15:44)
[2022-05-15] MEDS: amLODIPine 5 MG Tablet PO (15:45)
--- NOTE | 2022-05-15 16:20 | CASEMGMT ---
RN BRIGID SCIENCE INTERN CM to room to meet with patient for initial transition planning/care coordination assessment. SHAWN RAINEY introduced self and role at [facility].? Pt voices understanding and consents to assessment at this time.? Pt resting in bed in no distress at this time.? Dtr, Melissa, @ bedside and pt agreeable to her remaining present during assessment. Pt is A/O at this time and answers all questions appropriately.?? Care providers, pharmacy, and demographics verified/updated at this time.? PCP:?Dr Lal Specialists:?Dr Michel-surgeon, Dr Kwok-nephrology, Dr Whipple-endocrinology Preferred Pharmacy:?[facility] Retail Insurance:?[employer] MCR Prescription Benefit:??YES Living Will/HPOA:??Has LW and HCPOA, who are her sons, Paul and Zurdo LNOK:?Sons, Paul and Zurdo are POA. Daughter, Melissa Living Arrangements:?Lives in one-story home w/basement w/4 steps to enter. Renter lives in basement, who cleans pt's home once a month and does yardwork. Pt is independent w/ADL's and most IADL's. Daughter has been coming to do dressing changes daily and PRN. Sons has been assisting w/getting groceries. Transportation:?Pt, family? DME: ? States has the following DME:??walker, cane, quad cane, shower chair, TSR, grab bars, training and development project leader, nebulizer. HHC/SNF:? Pt states she has been feeling weak lately. She uses walker @ [facility]. PT/OT evals are pending. She states she would be interested in HHC, if strong enough to return home, but may also be interested in SNF, if recommended by therapy. Pt and daughter state will discuss it further this evening and would like to see how she does with therapy before making a decision. RN BRIGID informed them a list for either SNF or HHC would be provided to choose from. Pt and dtr did state if she went to SNF, they are interested in TCU. Norma BURROWS, made aware. Pt and dtr did inquire about HHC doing dressing changes daily. SHAWN RAINEY informed them HHC nurse does not come daily for dsg changes-that they typically come weekly and do teaching w/a teachable caregiver to do them on a daily bases/as needed. They voice understanding. CM to follow for further discharge planning/needs.? Pt and dtr voice no further concerns/needs at this time.? Advised them to ask for CM if any further questions/concerns/needs arise.? Voices understanding. PLAN:??TBD. Home w/HHC vs SNF. If returns home, daughter able to assist w/dressing changes. Estephanie ATWOOD RN CM?
[2022-05-15] MEDS: NATEGLINIDE 60 MG TABLET PO (17:15)
[2022-05-15 17:36] LABS: Bedside Glucose 130 mg/dL (74-106)
[2022-05-15] MEDS: Albuterol 2.5 MG/3 ML VIAL.NEB. INHALATION (18:54)
[2022-05-15] MEDS: Latanoprost 0.005% 1 Bottle 1 DRP EACH EYE (21:25)
[2022-05-15] MEDS: hydrALAZINE 50 MG Tablet 100 MG PO (21:27)
[2022-05-15 21:55] LABS: Bedside Glucose 129 mg/dL (74-106)
--- NOTE | 2022-05-15 23:35 | PCA ---
took pt on a walk in the [place] and back to room
[2022-05-16] VITALS (23 sets, daily range): BP systolic 141–185; BP diastolic 44–55; PULSE 45–82; RESP 16–20; TEMP 36.3–36.9; O2SAT 88–95
--- NOTE | 2022-05-16 04:31 | NURSING ---
pt up walking halls x1 full lap with GUI DEVELOPER at this time
[2022-05-16] MEDS: Acetaminophen 500 MG Tablet 1000 MG PO ×3 (04:57→21:29)
[2022-05-16] MEDS: hydrALAZINE 50 MG Tablet 100 MG PO ×3 (05:01→21:28)
[2022-05-16 05:26] LABS: Bedside Glucose 99 mg/dL (74-106)
--- NOTE | 2022-05-16 05:59 | PCM.PN.SRG ---
Subjective Subjective Patient states that she feels better. She feels fatigue. As noted she is still on oxygen Objective Data Objective Data Vital Signs: Vital Signs Temp Pulse Resp BP Pulse Ox O2 Del Method O2 Flow Rate 97.7 F L 57 L 18 141/46 H 93 Nasal Cannula 1 05/16/22 02:32 05/16/22 05:01 05/16/22 04:53 05/16/22 05:01 05/16/22 04:53 05/16/22 04:53 05/16/22 04:53 Oxygen Flow Rate (L/min) 1 Oxygen Delivery Method Nasal Cannula Weight: 230 lb 13.184 oz Body Mass Index (BMI) 43.6 Intake & Output: Intake and Output for Last 24 Hours 05/14/22 05/15/22 05/16/22 23:59 23:59 23:59 Intake Total 1000 / 1000 1155 / 1155 487.75 / 487.75 Output Total 400 / 400 Balance 1000 / 1000 755 / 755 487.75 / 487.75 Lab / Micro Data Result Diagrams: 05/15/22 06:35 05/15/22 06:35 Labs: Laboratory Results - last 24 hr 05/15/22 06:10: POC Glucose 105 05/15/22 06:35: WBC 10.7, RBC 3.77 L, Hgb 11.5 L, Hct 33.4 L, MCV 88.6, MCH 30.5, MCHC 34.4, RDW Std Deviation 43.8, RDW Coeff of Pedro 13.4, Plt Count 232, MPV 10.1, Immature Gran % (Auto) 0.300, Neut % (Auto) 60.4, Lymph % (Auto) 25.8, [place] % (Auto) 11.5 H, Eos % (Auto) 1.5, Baso % (Auto) 0.5, Absolute Neuts (auto) 6.5, Absolute Lymphs (auto) 2.76, Nucleated RBC % 0 05/15/22 06:35: Sodium 136, Potassium 4.6, Chloride 107, Carbon Dioxide 24.0, Anion Gap 5, BUN 29 H, Creatinine 1.25 H, Estim Creat Clear Calc 24.83, Est GFR (MDRD) Af Amer 52 L, Est GFR (MDRD) Non-Af 43 L, BUN/Creatinine Ratio 23.2 H, Glucose 111 H, Calcium 9.1 05/15/22 13:52: POC Glucose 147 H 05/15/22 17:07: POC Glucose 130 H 05/15/22 21:24: POC Glucose 129 H 05/16/22 04:56: POC Glucose 99 Micro: Microbiology 05/15/22 12:51 Incision/Surgical Site Gram Stain - Final 05/15/22 12:49 Incision/Surgical Site Gram Stain - Final 05/14/22 22:02 Urine, Clean Catch Urine Culture - Preliminary Culture exhibits no growth. 05/15/22 03:15 Wound - Breast, Right Gram Stain - Final 05/14/22 22:07 Nasal Secretion SARS-CoV-2 & FLU Antigen (Rapid) - Final Physical Exam Narrative Right breast dressing change. Diffuse erythema of the breast improved. Erythema still at the incision site. Remarkably little drainage on the dressings overnight. [place] drain slightly advanced. Clean dressings applied. Assessment & Plan Assessment/Plan (1) Infected seroma, postoperative: PLAN: Plan The patient's right breast cellulitis and infected seroma appear to be responding appropriately to treatment. With the drainage that has been performed I would anticipate that in the near future should be able to go home on oral antibiotics. It would make sense to continue IV antibiotics as long as the hospitalist service requires admission for her other medical problems. It is noted the patient is still on nasal prong oxygen therapy. Michael Michel M.D., F.A.C.S.
[2022-05-16 06:04] LABS: Absolute Lymphocyte Count 1.71 X10^3/uL (0.83-4.51); Absolute Neutrophil Count 6.2 X10^3/uL (2.0-7.7); Basophil# 0.09 X10^3/uL; Eosinophil# 0.25 X10^3/uL; Eosinophils% 2.7 % (0-5); Hematocrit 32.7 % (37-47); Hemoglobin 11.1 g/dL (12.0-15.0); Lymphocyte # 1.71 X10^3/ul (0.83-4.51); Lymphocyte % 18.5 % (19-41); Mean Corp Hgb Conc 33.9 g/dL (32-36); Mean Corpuscular Hgb 30.4 pg (27.0-32.0); Mean Corpuscular Volume 89.6 fL (81-99); Mean Platelet Vol. 10.7 fl (6.2-12.0); Monocyte# 0.95 X10^3/uL; Monocyte% 10.3 % (0-10); NRBC Flagged by Analyzer 0 % (0-5); Neutrophil # 6.21 X10^3/uL (2.7-7.7); Neutrophil % 67.1 % (47-70); POSITIVE COUNT YES; Platelet Count 196 K/mm3 (150-450); RBC Distribution Width CV 13.6 % (11.6-14.6); RBC Distribution Width SD 45.6 fl (35.1-43.9); Red Blood Count 3.65 M/mm3 (4.2-5.4); White Blood Count 9.3 K/mm3 (4.4-11.0)
[2022-05-16 06:11] LABS: Differential Indicated SCAN CRITERIA MET
[2022-05-16 06:33] LABS: Differential Comment SCANNED; Platelet Estimate ADEQUATE (ADEQ)
[2022-05-16 07:02] LABS: ALB/GLOB Ratio 0.6 RATIO (0.9-2.4); AST(SGOT) 19 U/L (15-37); Alanine Aminotransfer ALT/SGPT 38 U/L (13-56); Albumin, Serum 2.3 g/dL (3.2-5.0); Alkaline Phosphatase 61 U/L (45-117); Anion Gap 7 (5-15); BUN 26 mg/dL (7-18); BUN/Creat Ratio 17.9 RATIO (10-20); Calcium,Total 8.5 mg/dL (8.5-10.1); Chloride 106 mmol/L (98-107); Creatinine, Serum 1.45 mg/dL (0.55-1.02); EST Glomerular Filtration Rate 36 mL/min (>60); Est Glom Filt Rate - Afr Amer 44 mL/min (>60); Globulin 3.7 g/dL (2.2-4.2); Glucose 191 mg/dL (74-106); Magnesium 1.6 mg/dL (1.6-2.6); Phosphorus 2.6 mg/dL (2.5-4.9); Potassium 4.2 mmol/L (3.5-5.1); Sodium Level 135 mmol/L (136-145)
[2022-05-16] MEDS: Albuterol 2.5 MG/3 ML VIAL.NEB. INHALATION ×2 (07:33→19:32)
[2022-05-16] MEDS: NATEGLINIDE 60 MG TABLET PO ×3 (08:31→16:52)
[2022-05-16] MEDS: Metoprolol(XL)Succ 25 MG Tablet PO ×2 (08:32→21:29)
[2022-05-16] MEDS: Glucerna Shake 120 ML LIQUID PO ×3 (08:39→16:51)
[2022-05-16] MEDS: amLODIPine 5 MG Tablet PO (08:40)
[2022-05-16] MEDS: Lisinopril 20 MG Tablet PO ×2 (08:41→21:28)
[2022-05-16 08:43] LABS: Hemoglobin A1c 6.1 % (3.8-5.6)
--- NOTE | 2022-05-16 10:24 | CASEMGMT ---
Social Work SW spoke with pt regarding advance directives. Pt does have a living will on file, but not a health care POA. Pt states she does have a HCPOA naming her two sons Pual and Aj Hanson. SW requested this document be brought in for scanning into EMR. SUHAS Roland
--- NOTE | 2022-05-16 11:23 | WOUNDNOTE ---
wound photo: right breast
[2022-05-16 12:14] LABS: Vancomycin, Trough Level 15.9 ug/mL (5.0-15.0)
--- NOTE | 2022-05-16 13:42 | PCM.RX.CS ---
Consult Pharmacy has been consulted to manage selected antiobiotic: Vancomycin Type of Consult: Follow-up Suspected Infection: Skin/Soft tissue Prior Doses of Antibiotics Received/Current Regimen: 1gm loading dose on 05.14.22. Labs: Sodium 135 mmol/L (136-145) L 05/16/22 05:50 Potassium 4.2 mmol/L (3.5-5.1) 05/16/22 05:50 Chloride 106 mmol/L (98-107) 05/16/22 05:50 Carbon Dioxide 22.0 mmol/L (21.0-32.0) 05/16/22 05:50 Anion Gap 7 (5-15) 05/16/22 05:50 BUN 26 mg/dL (7-18) H 05/16/22 05:50 Creatinine 1.45 mg/dL (0.55-1.02) H 05/16/22 05:50 Est GFR (MDRD) Af Amer 44 mL/min (>60) L 05/16/22 05:50 Est GFR (MDRD) Non-Af 36 mL/min (>60) L 05/16/22 05:50 BUN/Creatinine Ratio 17.9 RATIO (10-20) 05/16/22 05:50 Glucose 191 mg/dL (74-106) H 05/16/22 05:50 Vancomycin Trough 15.9 ug/mL (5.0-15.0) H 05/16/22 11:10 Microbiology: Microbiology 05/15/22 12:51 Incision/Surgical Site Gram Stain - Final 05/15/22 12:51 Incision/Surgical Site Wound Culture - Preliminary GNR Poss Pseudomonas sp 05/15/22 12:49 Incision/Surgical Site Gram Stain - Final 05/15/22 12:49 Incision/Surgical Site Wound Culture - Preliminary No growth-Final to follow 05/15/22 03:15 Wound - Breast, Right Gram Stain - Final 05/15/22 03:15 Wound - Breast, Right Wound Culture - Preliminary GNR Poss Pseudomonas sp 05/14/22 22:02 Urine, Clean Catch Urine Culture - Final Mixed Gram Pos & Gram Neg Org 05/14/22 22:07 Nasal Secretion SARS-CoV-2 & FLU Antigen (Rapid) - Final Weight used for dosin.7 kg Estimated Creatinine Clearance: 32 ml//min Goal Trough: 15-20 mcg/mL Pharmacy Plan for Drug Dosing: Trough today was 15.9 and in therapeutic range of 15-20mcg/ml. A calculated CrCl of ~32ml/min was determined from adjusted body weight of 70.3kg. Will continue same dose and frequency. New trough level is ordered for 05.17.22 per policy. Pharmacy Service will continue to monitor and adjust dosing as required. Follow-Up Labs: Trough Vancomycin - 05.17.22 @2300 before 2330 dose
[2022-05-16 14:16] LABS: Bedside Glucose 91 mg/dL (74-106)
--- NOTE | 2022-05-16 14:29 | PN.HOSP_ITS ---
Subjective Subjective Patient states she is overall feeling much better today. Still having some right breast tenderness but no significant pain and states Tylenol is effective. Much less fatigue and generalized weakness. PT is recommending additional therapy at discharge. Would recommend home health. Objective Data Objective Data Vital Signs: Vital Signs Temp Pulse Resp BP Pulse Ox O2 Del Method O2 Flow Rate 98.4 F 58 L 16 148/44 H 88 Room Air 2 05/16/22 13:53 05/16/22 14:06 05/16/22 13:53 05/16/22 14:06 05/16/22 14:02 05/16/22 14:02 05/16/22 13:53 Oxygen Flow Rate (L/min) 2 Oxygen Delivery Method Room Air Weight: 104.7 kg Body Mass Index (BMI) 43.6 Intake & Output: Intake and Output for Last 24 Hours 05/14/22 05/15/22 05/16/22 23:59 23:59 23:59 Intake Total 1000 / 1000 1155 / 1155 802.75 / 802.75 Output Total 400 / 400 Balance 1000 / 1000 755 / 755 802.75 / 802.75 Lab / Micro Data Result Diagrams: 05/16/22 05:50 05/16/22 05:50 Labs: Laboratory Results - last 24 hr 05/15/22 17:07: POC Glucose 130 H 05/15/22 21:24: POC Glucose 129 H 05/16/22 04:56: POC Glucose 99 05/16/22 05:50: WBC 9.3, RBC 3.65 L, Hgb 11.1 L, Hct 32.7 L, MCV 89.6, MCH 30.4, MCHC 33.9, RDW Std Deviation 45.6 H, RDW Coeff of Pedro 13.6, Plt Count 196, MPV 10.7, Immature Gran % (Auto) 0.400, Neut % (Auto) 67.1, Lymph % (Auto) 18.5 L, [place] % (Auto) 10.3 H, Eos % (Auto) 2.7, Baso % (Auto) 1.0, Absolute Neuts (auto) 6.2, Absolute Lymphs (auto) 1.71, Nucleated RBC % 0, Differential Comment SCANNED, Platelet Estimate ADEQUATE 05/16/22 05:50: Sodium 135 L, Potassium 4.2, Chloride 106, Carbon Dioxide 22.0, Anion Gap 7, BUN 26 H, Creatinine 1.45 H, Estim Creat Clear Calc 21.40, Est GFR (MDRD) Af Amer 44 L, Est GFR (MDRD) Non-Af 36 L, BUN/Creatinine Ratio 17.9, Glucose 191 H, Calcium 8.5, Phosphorus 2.6, Magnesium 1.6, Total Bilirubin 1.30 H, AST 19, ALT 38, Alkaline Phosphatase 61, Total Protein 6.0 L, Albumin 2.3 L, Globulin 3.7, Albumin/Globulin Ratio 0.6 L, TSH 1.50 05/16/22 05:50: Hemoglobin A1c 6.1 H 05/16/22 11:10: Vancomycin Trough 15.9 H 05/16/22 13:56: POC Glucose 91 Micro: Microbiology 05/15/22 12:51 Incision/Surgical Site Gram Stain - Final 05/15/22 12:51 Incision/Surgical Site Wound Culture - Preliminary GNR Poss Pseudomonas sp 05/15/22 12:49 Incision/Surgical Site Gram Stain - Final 05/15/22 12:49 Incision/Surgical Site Wound Culture - Preliminary No growth-Final to follow 05/15/22 03:15 Wound - Breast, Right Gram Stain - Final 05/15/22 03:15 Wound - Breast, Right Wound Culture - Preliminary GNR Poss Pseudomonas sp 05/14/22 22:02 Urine, Clean Catch Urine Culture - Final Mixed Gram Pos & Gram Neg Org 05/14/22 22:07 Nasal Secretion SARS-CoV-2 & FLU Antigen (Rapid) - Final Physical Exam Const alert, oriented x3 and no apparent distress Constitutional Narrative: Very pleasant elderly white female sitting up in a chair at the bedside, nursing at bedside, patient appears comfortable and nontoxic, much less fatigued appearing than yesterday HEENT normocephalic, head/scalp atraumatic, hearing grossly normal bilaterally and moist oral mucous membranes HEENT Narrative: Mallampati 3, no thrush Resp normal respiratory effort, no retractions, no use of accessory muscles and clear to auscultation bilaterally Cardio regular rate, regular rhythm, S1 normal heart sound and S2 normal heart sound GI normal to inspection, nondistended, normoactive bowel sounds, soft to palpation, non-tender and non-distended Extremity Extremity Narrative: Bilateral lower extremity edema-trace, no clubbing or cyanosis Skin Skin Narrative: Right breast with less tenderness and erythema, postoperative dressing in place and is clean dry and intact Neuro oriented x3, moves all extremities and no focal motor deficits Sensorium / Orientation: awake, alert, oriented to person, oriented to place and oriented to time Speech: speech normal Psych affect normal Psych Narrative: A pleasant and appropriately interactive Assessment & Plan Assessment/Plan (1) Infected seroma, postoperative: (2) Hypertensive urgency: (3) Abnormal urinalysis: (4) Cellulitis of breast: (5) Leukocytosis: PLAN: Plan Breast/axillary abscess -Continue broad-spectrum antibiotics until cultures have finalized -Cultures thus far show Pseudomonas possible-await final cultures with sensitivities -Postop day 1 I&D right breast abscess -Wound care following -Appreciate general surgery input Mild hypoxia -Suspect baseline obstructive sleep apnea that is untreated -Would recommend outpatient polysomnography -Also could be related to obesity hypoventilation syndrome as patient's BMI is 43.6 -If patient continues to require oxygen would obtain an ABG after patient has been on room air for 5 minutes and if AA gradient is normal this is most likely obesity hypoventilation syndrome and I would recommend discharge with home O2. -AA gradient would need corrected for age -If the AA gradient is abnormal then we should probably pursue VQ scan versus CTA of the chest to rule out PE with history of lung CA -CT scan did not show any significant signs of infiltrate or pulmonary edema on presentation Abnormal urinalysis -UA was slightly suspicious for infection however urine culture has no growth to date -UA showed leukoesterase and nitrites with minimal white cells and 1+ bacteria -Urine culture itself looks contaminated with mixed gram-positive and gram-negat melisa organisms -Continue to monitor -Pathogens in the urine should be covered with antibiotics utilized for her above abscess at this point anyway CKD stage IIIb -Serum creatinine is stable -Baseline 1.1-1.3 -Slight elevation today from baseline however patient is postoperative -Repeat BMP in a.m. -Continue to monitor -Avoid nephrotoxins -Has outpatient nephrology follow-up on Friday Sam type I second-degree heart block -Appears to have progressed from a first-degree heart block on previous EKGs -No current work-up needed at this time -Continue to monitor as an outpatient Hypertension -Continue home amlodipine -Continue home clonidine -Continue hydralazine at increased dose 100 mg--> blood pressure is much better with this change and would recommend discharge home on this increased dose -Continue home lisinopril 40 -Continue Toprol -Monitor blood pressure as she has been having some difficulty at home with elevated pressures -TSH is within normal limits Invasive ductal carcinoma -ER/VT positive -Oncology follow-up as an outpatient DM-2 -Hold home oral agents -Check hemoglobin A1c with infection -Sliding scale insulin -Acute checks as ordered -Carb controlled cardiac diet History of glaucoma -Continue home eyedrop drops Bilateral carotid artery stenosis -Follow as an outpatient -No urgent issues -Continue home medication regimen Obstructive sleep apnea -Patient noncompliant at home at baseline -May need oxygen when sleeping -Monitor sats Generalized weakness/debility -PT/OT following -We will likely need home health at discharge -Case management consulted DVT prophylaxis -SCDs -We will start chemoprophylaxis tomorrow if no further surgical intervention is required Charges/Coding Visit Charges Inpatient E&M: 07741 Subs Hosp L2
[2022-05-16 17:25] LABS: Bedside Glucose 129 mg/dL (74-106)
[2022-05-16] MEDS: oxyCODONE 5 MG Tablet PO (18:35)
[2022-05-16] MEDS: Latanoprost 0.005% 1 Bottle 1 DRP EACH EYE (21:29)
[2022-05-16 23:00] LABS: Bedside Glucose 105 mg/dL (74-106)
[2022-05-17] VITALS (24 sets, daily range): BP systolic 144–199; BP diastolic 46–65; PULSE 54–80; RESP 16–18; TEMP 36.4–36.8; O2SAT 92–845
[2022-05-17 05:09] LABS: Absolute Lymphocyte Count 2.39 X10^3/uL (0.83-4.51); Absolute Neutrophil Count 6.5 X10^3/uL (2.0-7.7); Basophil# 0.07 X10^3/uL; Basophil% 0.7 % (0-1); Eosinophil# 0.43 X10^3/uL; Eosinophils% 4.1 % (0-5); Hematocrit 37.2 % (37-47); Hemoglobin 12.3 g/dL (12.0-15.0); Lymphocyte # 2.39 X10^3/ul (0.83-4.51); Mean Corp Hgb Conc 33.1 g/dL (32-36); Mean Corpuscular Hgb 29.9 pg (27.0-32.0); Mean Corpuscular Volume 90.3 fL (81-99); Monocyte# 0.97 X10^3/uL; Monocyte% 9.3 % (0-10); NRBC Flagged by Analyzer 0 % (0-5); Neutrophil # 6.49 X10^3/uL (2.7-7.7); Neutrophil % 62.4 % (47-70); Platelet Count 261 K/mm3 (150-450); RBC Distribution Width CV 13.9 % (11.6-14.6); RBC Distribution Width SD 46.4 fl (35.1-43.9); Red Blood Count 4.12 M/mm3 (4.2-5.4); White Blood Count 10.4 K/mm3 (4.4-11.0)
[2022-05-17] MEDS: cloNIDine HCl 0.1 MG Tablet PO (05:14)
[2022-05-17] MEDS: hydrALAZINE 50 MG Tablet 100 MG PO ×3 (05:14→22:15)
[2022-05-17] MEDS: Acetaminophen 500 MG Tablet 1000 MG PO ×3 (05:15→22:15)
[2022-05-17 05:32] LABS: Anion Gap 6 (5-15); BUN 28 mg/dL (7-18); BUN/Creat Ratio 20.3 RATIO (10-20); Calcium,Total 9.4 mg/dL (8.5-10.1); Chloride 108 mmol/L (98-107); Creatinine, Serum 1.38 mg/dL (0.55-1.02); EST Glomerular Filtration Rate 39 mL/min (>60); Est Glom Filt Rate - Afr Amer 47 mL/min (>60); Estimated Creatinine Clearance 22.49 ml/min; Glucose 121 mg/dL (74-106); Potassium 4.2 mmol/L (3.5-5.1); Sodium Level 138 mmol/L (136-145)
[2022-05-17 05:51] LABS: Bedside Glucose 117 mg/dL (74-106)
--- NOTE | 2022-05-17 05:53 | PCM.PN.SRG ---
Subjective Subjective Patient is lethargic this morning. States she does not want to move. States she has lost the will to live. Seems depressed. She denies any significant right breast pain. Objective Data Objective Data Vital Signs: Vital Signs Temp Pulse Resp BP Pulse Ox O2 Del Method O2 Flow Rate 98.1 F 72 18 199/65 H 92 Nasal Cannula 1 05/17/22 02:45 05/17/22 05:14 05/17/22 02:45 05/17/22 05:14 05/17/22 02:45 05/17/22 02:45 05/17/22 02:45 Oxygen Flow Rate (L/min) 1 Oxygen Delivery Method Nasal Cannula Weight: 230 lb 13.184 oz Body Mass Index (BMI) 43.6 Intake & Output: Intake and Output for Last 24 Hours 05/15/22 05/16/22 05/17/22 23:59 23:59 23:59 Intake Total 1155 / 1155 852.75 / 852.75 315 / 315 Output Total 400 / 400 Balance 755 / 755 852.75 / 852.75 315 / 315 Lab / Micro Data Result Diagrams: 05/17/22 04:46 05/17/22 04:46 Labs: Laboratory Results - last 24 hr 05/16/22 05:50: WBC 9.3, RBC 3.65 L, Hgb 11.1 L, Hct 32.7 L, MCV 89.6, MCH 30.4, MCHC 33.9, RDW Std Deviation 45.6 H, RDW Coeff of Pedro 13.6, Plt Count 196, MPV 10.7, Immature Gran % (Auto) 0.400, Neut % (Auto) 67.1, Lymph % (Auto) 18.5 L, [place] % (Auto) 10.3 H, Eos % (Auto) 2.7, Baso % (Auto) 1.0, Absolute Neuts (auto) 6.2, Absolute Lymphs (auto) 1.71, Nucleated RBC % 0, Differential Comment SCANNED, Platelet Estimate ADEQUATE 05/16/22 05:50: Sodium 135 L, Potassium 4.2, Chloride 106, Carbon Dioxide 22.0, Anion Gap 7, BUN 26 H, Creatinine 1.45 H, Estim Creat Clear Calc 21.40, Est GFR (MDRD) Af Amer 44 L, Est GFR (MDRD) Non-Af 36 L, BUN/Creatinine Ratio 17.9, Glucose 191 H, Calcium 8.5, Phosphorus 2.6, Magnesium 1.6, Total Bilirubin 1.30 H, AST 19, ALT 38, Alkaline Phosphatase 61, Total Protein 6.0 L, Albumin 2.3 L, Globulin 3.7, Albumin/Globulin Ratio 0.6 L, TSH 1.50 05/16/22 05:50: Hemoglobin A1c 6.1 H 05/16/22 11:10: Vancomycin Trough 15.9 H 05/16/22 13:56: POC Glucose 91 05/16/22 16:54: POC Glucose 129 H 05/16/22 21:48: POC Glucose 105 05/17/22 04:46: WBC 10.4, RBC 4.12 L, Hgb 12.3, Hct 37.2, MCV 90.3, MCH 29.9, MCHC 33.1, RDW Std Deviation 46.4 H, RDW Coeff of Pedro 13.9, Plt Count 261, MPV 10.0, Immature Gran % (Auto) 0.500, Neut % (Auto) 62.4, Lymph % (Auto) 23.0, [place] % (Auto) 9.3, Eos % (Auto) 4.1, Baso % (Auto) 0.7, Absolute Neuts (auto) 6.5, Absolute Lymphs (auto) 2.39, Nucleated RBC % 0 05/17/22 04:46: Sodium 138, Potassium 4.2, Chloride 108 H, Carbon Dioxide 24.0, Anion Gap 6, BUN 28 H, Creatinine 1.38 H, Estim Creat Clear Calc 22.49, Est GFR (MDRD) Af Amer 47 L, Est GFR (MDRD) Non-Af 39 L, BUN/Creatinine Ratio 20.3 H, Glucose 121 H, Calcium 9.4 05/17/22 05:11: POC Glucose 117 H Micro: Microbiology 05/15/22 12:51 Incision/Surgical Site Gram Stain - Final 05/15/22 12:51 Incision/Surgical Site Wound Culture - Preliminary GNR Poss Pseudomonas sp 05/15/22 12:49 Incision/Surgical Site Gram Stain - Final 05/15/22 12:49 Incision/Surgical Site Wound Culture - Preliminary No growth-Final to follow 05/15/22 03:15 Wound - Breast, Right Gram Stain - Final 05/15/22 03:15 Wound - Breast, Right Wound Culture - Preliminary GNR Poss Pseudomonas sp 05/14/22 22:02 Urine, Clean Catch Urine Culture - Final Mixed Gram Pos & Gram Neg Org 05/14/22 22:07 Nasal Secretion SARS-CoV-2 & FLU Antigen (Rapid) - Final Physical Exam Narrative Generalized right breast erythema has essentially resolved. Erythema still persists right at the incision line. [place] to light serous drainage on the gauze. Assessment & Plan Assessment/Plan (1) Infected seroma, postoperative: PLAN: Dressing was changed for her today. The Carol was slightly advanced. This wound healing will be slower as the patient declined a wound packing technique. She is disappointed by the amount of time that she feels that it is taking for this to heal. Final cultures and antibiotic selection still pending. The patient is unsure whether she is going to her home situation or to a care facility. From a surgical standpoint her wound has improved enough that pending her medical progress she may be discharged. This would be pending culture reports which I am assuming will be available today. Michael Michel M.D., F.A.C.S.
[2022-05-17] MEDS: Albuterol 2.5 MG/3 ML VIAL.NEB. INHALATION ×3 (07:41→19:36)
--- NOTE | 2022-05-17 07:57 | NURSING ---
pt expressed concerns overnight to this RN regarding daughterRuby being overly involved with pts care. pt tearful stating i just wish she would be more present and not ask so many questions. this RN asked pt if she would like staff to call Ruby and express pts concerns. pt agreeable. Call placed to Ruby this AM for approx 20 min at this time, went over POC and new reports as of this AM. This RN reiterated the wishes of the pt, asking if the daughter could stay in the room and not run out of the room and ask repetitive questions to all the nurses. pt voiced wishes that the daughter needs to just trust the doctors and nurses and let them do their jobs. Daughter acknowledged and appeared receptive on the phone call. daughter states she will be in to visit later this afternoon.
[2022-05-17 08:00] LABS: Base Excess -1 mmol/L (-2 to +2); Bicarbonate 24.5 mmol/L (22-26); Blood Gas Specimen Type ART; O2 Delivery Device Room Air; PO2 61 mmHG (75-100); SITE L Brach; SO2 90 % (95-99); Total Carbon Dioxide 26 mmol/L; pCO2 42.8 mmHg (35-45); pH 7.37 (7.35-7.45)
[2022-05-17] MEDS: Glucerna Shake 120 ML LIQUID PO ×2 (09:17→12:10)
[2022-05-17] MEDS: amLODIPine 5 MG Tablet PO (09:18)
[2022-05-17] MEDS: Metoprolol(XL)Succ 25 MG Tablet PO ×2 (09:18→22:17)
[2022-05-17] MEDS: Cholecalciferol (Vit D3) 125 MCG CAPSULE (5,000 UNITS) PO (09:18)
[2022-05-17] MEDS: NATEGLINIDE 60 MG TABLET PO ×3 (09:18→17:24)
[2022-05-17] MEDS: Lisinopril 20 MG Tablet PO ×2 (09:18→22:16)
[2022-05-17] MEDS: Ascorbic Acid 500 MG Tablet PO (09:18)
--- NOTE | 2022-05-17 10:33 | NM_ITS ---
CLINICAL: 86-year-old female with history of hypoxemia. VENTILATION-PERFUSION LUNG SCINTIGRAPHY COMPARISON: CT of the chest report 05/14/2022 FINDINGS: The patient was administered 49.5 mCi 99m Tc DTPA aerosol. The aerosol ventilation study demonstrates heterogeneous ventilation identified throughout the bilateral lung shoemaker. Central clumping of the aerosol is noted in the bilateral hemithorax. Following the intravenous administration of 5.7 mCi of 99m Tc MAA the pulmonary perfusion study reveals relatively uniform perfusion throughout both lung shoemaker. There are no segmental or subsegmental perfusion defects identified. There are no ventilation-perfusion mismatches observed. NM/Lung Scan Vent/Perf IMPRESSION: 1. NORMAL 99m Tc MAA pulmonary perfusion imaging examination, according to PIOPED II interpretive criteria. (Sotsman et al, Radiology 246: 941, 2008 Soamelia et al, J Nucl Med 49: 1741, 2008). 2. Central clumping of the aerosol may be secondary to obstructive airway mechanics and or clinical tachypnea. Electronically Signed: Justyn Palma, at 13:02 EDT ,
--- NOTE | 2022-05-17 10:35 | PCM.PN.HOSP ---
Objective Data Objective Data Vital Signs: Vital Signs Temp Pulse Resp BP Pulse Ox O2 Del Method O2 Flow Rate 97.9 F 65 18 176/64 H 94 Nasal Cannula 2 05/17/22 07:48 05/17/22 09:18 05/17/22 08:37 05/17/22 07:48 05/17/22 08:37 05/17/22 08:37 05/17/22 08:37 Oxygen Flow Rate (L/min) 2 Oxygen Delivery Method Nasal Cannula Weight: 230 lb 13.184 oz Body Mass Index (BMI) 43.6 Intake & Output: Intake and Output for Last 24 Hours 05/15/22 05/16/22 05/17/22 23:59 23:59 23:59 Intake Total 1155 / 1155 852.75 / 852.75 315 / 315 Output Total 400 / 400 Balance 755 / 755 852.75 / 852.75 315 / 315 Lab / Micro Data Result Diagrams: 05/17/22 04:46 05/17/22 04:46 Labs: Laboratory Results - last 24 hr 05/16/22 11:10: Vancomycin Trough 15.9 H 05/16/22 13:56: POC Glucose 91 05/16/22 16:54: POC Glucose 129 H 05/16/22 21:48: POC Glucose 105 05/17/22 04:46: WBC 10.4, RBC 4.12 L, Hgb 12.3, Hct 37.2, MCV 90.3, MCH 29.9, MCHC 33.1, RDW Std Deviation 46.4 H, RDW Coeff of Pedro 13.9, Plt Count 261, MPV 10.0, Immature Gran % (Auto) 0.500, Neut % (Auto) 62.4, Lymph % (Auto) 23.0, [place] % (Auto) 9.3, Eos % (Auto) 4.1, Baso % (Auto) 0.7, Absolute Neuts (auto) 6.5, Absolute Lymphs (auto) 2.39, Nucleated RBC % 0 05/17/22 04:46: Sodium 138, Potassium 4.2, Chloride 108 H, Carbon Dioxide 24.0, Anion Gap 6, BUN 28 H, Creatinine 1.38 H, Estim Creat Clear Calc 22.49, Est GFR (MDRD) Af Amer 47 L, Est GFR (MDRD) Non-Af 39 L, BUN/Creatinine Ratio 20.3 H, Glucose 121 H, Calcium 9.4 05/17/22 05:11: POC Glucose 117 H Micro: Microbiology 05/15/22 12:51 Incision/Surgical Site Gram Stain - Final 05/15/22 12:51 Incision/Surgical Site Wound Culture - Final Pseudomonas aeroginosa 05/15/22 12:51 Incision/Surgical Site Anaerobic Culture - Preliminary No growth in 48 hours. 05/15/22 03:15 Wound - Breast, Right Gram Stain - Final 05/15/22 03:15 Wound - Breast, Right Wound Culture - Final Pseudomonas aeroginosa 05/15/22 12:49 Incision/Surgical Site Gram Stain - Final 05/15/22 12:49 Incision/Surgical Site Wound Culture - Preliminary No growth-Final to follow 05/15/22 12:49 Incision/Surgical Site Anaerobic Culture - Preliminary No growth in 48 hours. 05/14/22 22:02 Urine, Clean Catch Urine Culture - Final Mixed Gram Pos & Gram Neg Org 05/14/22 22:07 Nasal Secretion SARS-CoV-2 & FLU Antigen (Rapid) - Final ABG Data ABG results: ABG 05/17/22 07:53 Specimen Type ART Sample Site L Brach pH 7.37 Bicarbonate Actual 24.5 Total CO2 26 Base Excess -1 O2 Saturation 90 L ABG pCO2 42.8 ABG pO2 61 L O2 Delivery Device Room Air Assessment & Plan Assessment/Plan (1) Infected seroma, postoperative: (2) Hypertensive urgency: (3) Abnormal urinalysis: (4) Cellulitis of breast: (5) Leukocytosis: PLAN: Plan Infected right upper quadrant breast seroma: Patient ultrasound-guided fine-needle aspiration of right axillary seroma and afterwards open debridement and evacuation on 05/15/2022. Surgeon follow-up note reviewed. Dressing was changed. Carol was advanced. Patient declined wound packing technique. Bhavya patient was on broad-spectrum antibiotic vancomycin and Zosyn. Wound culture showing Pseudomonas. ID is consulted. Antibiotic narrowed down to Cipro. I discussed in detail with patient's daughter. Mild hypoxia -Suspect baseline obstructive sleep apnea that is untreated/bilateral lung atelectasis. Patient daughter is concerned therefore ABG done.ABG shows a gradient, 10 more than expected from her age. VQ scan ordered. Would recommend outpatient polysomnography -Also could be related to obesity hypoventilation syndrome as patient's BMI is 43.6 -CT scan did not show any significant signs of infiltrate or pulmonary edema on presentation. Abnormal urinalysis -UA was slightly suspicious for infection however urine culture has no growth to date -UA showed leukoesterase and nitrites with minimal white cells and 1+ bacteria -Urine culture itself looks contaminated with mixed gram-positive and gram-negative organisms -Continue to monitor -Pathogens in the urine should be covered with antibiotics utilized for her above abscess at this point anyway CKD stage IIIb -Serum creatinine is stable -Baseline 1.1-1.3, slight elevation from baseline. Currently trending down -Avoid nephrotoxins -Has outpatient nephrology follow-up on Friday Sam type I second-degree heart block -Appears to have progressed from a first-degree heart block on previous EKGs -No current work-up needed at this time -Continue to monitor as an outpatient Hypertension -Continue home amlodipine -Continue home clonidine -Continue hydralazine at increased dose 100 mg--> blood pressure is much better with this change and would recommend discharge home on this increased dose -Continue home lisinopril 20 mg twice daily. Clonidine dose increased to 0.2 mg twice daily -Continue Toprol -Monitor blood pressure as she has been having some difficulty at home with elevated pressures -TSH is within normal limits Invasive ductal carcinoma -ER/MT positive -Oncology follow-up as an outpatient DM-2 -Hold home oral agents -Check hemoglobin A1c with infection -Sliding scale insulin -Acute checks as ordered -Carb controlled cardiac diet History of glaucoma -Continue home eyedrop drops Bilateral carotid artery stenosis -Follow as an outpatient -No urgent issues -Continue home medication regimen Obstructive sleep apnea -Patient noncompliant at home at baseline -May need oxygen when sleeping -Monitor sats Generalized weakness/debility -PT/OT following -We will likely need home health at discharge -Case management consulted DVT prophylaxis -SCDs. Heparin 520 8 subcutaneous 3 times daily. Total time of the visit including total time spent in counseling or coordination of care, (more than 50% of the total time, spent in obtaining medical information from nurses and other ancillary care providers,explaining to the patient about labs, imaging, diagnosis and management of active complex medical conditions), medical record review, review of labs and imaging and long discussion with patient's daughter and patient in the room is 40 minutes. Charges/Coding Visit Charges Inpatient E&M: 23919 Subs Hosp L3
[2022-05-17 12:06] LABS: Bedside Glucose 140 mg/dL (74-106)
[2022-05-17] MEDS: 0.9% Saline Lock 10 ML Syringe IV (12:10)
[2022-05-17] MEDS: Ciprofloxacin 500 MG Tablet PO ×2 (13:08→22:16)
[2022-05-17] MEDS: cloNIDine HCl 0.2 MG Tablet PO ×2 (13:08→22:15)
--- NOTE | 2022-05-17 14:22 | CASEMGMT ---
SHAWN RAINEY in to discuss discharge planning needs. SHAWN RAINEY review therapy notes with patient and daughter. Patient ambulated 400ft standby with therapy, patient would not qualify to discharge to SNF/TCU, SHAWN RAINEY reviewed therapy progress with patient. SHAWN RAINEY discussed possible HHC for wound care and therapy. Patient not sure if she would like HHC at discharge. SHAWN RAINEY will continue to monitor patient's progress and plan for a safe discharge.
[2022-05-17] MEDS: Heparin Injection (Vial) 5,000 UNIT/ML VIAL 5000 UNIT SC ×2 (14:31→22:17)
--- NOTE | 2022-05-17 16:02 | PCM.CONS.GEN ---
Assessment & Plan Assessment/Plan (1) Breast abscess: PLAN: S/p OR 04/30/22. Now had I&D by Dr. Michel on 05/15. Surg cx with pseudomonas, will change abx to po cipro, plan on one more week treatment now that she has had good source control. Will follow, thank you, d/w primary team HPI Consult Data Date of Consult: 05/17/22 HPI Narrative Reason for Consultation: breast abscess HPI Narrative: DEBBIE KENNEY, is a 86 F who presented 05/15 with about 2 weeks progressive R breast pain, swelling, redness. No fever or chills. Had breast surgery for biopsy 04/[address] Michel. Path showed invasive ductal cancer. Admitted here, started on vanc/zosyn, taken to OR for I&D on 05/15. Cxs showing pseudomonas, pt feeling better, no fever, no n/v/d. Full ROS performed and neg except as noted above. [facility] Medical History Ambulates with cane Arthritis Bilateral carotid artery stenosis Bilateral extracranial carotid artery stenosis Cancer Difficulty swallowing GERD (gastroesophageal reflux disease) History of edema History of IBS History of renal disease History of steroid therapy HTN (hypertension) Hyperlipidemia Leg cramps Non-smoker PONV (postoperative nausea and vomiting) Shortness of breath on exertion Sleep apnea Type 2 diabetes mellitus Wears glasses Wears hearing aid Home Medications ascorbic acid (vitamin C) 500 mg tablet 500 mg PO DAILY@0800 supplement 07/29/14 [History Last Taken 09/25/18] latanoprost 0.005 % eye drops (Xalatan) 1 drp EACH EYE QHS 07/29/14 [History Last Taken 09/24/18] omega-3 fatty acids-fish oil 300 mg-1,000 mg capsule 1 ea PO DAILY 07/29/14 [History Last Taken 09/25/18] nateglinide 60 mg tablet 60 mg PO TID BLOOD GLUCOSE 08/27/17 [History Last Taken 09/25/18 08:00] aspirin 81 mg chewable tablet 81 mg PO DAILY HEART HEALTH 06/26/18 [History Last Taken 09/24/18] metoprolol succinate 50 mg tablet,extended release 24 hr 25 mg PO BID HTN 06/26/18 [History Last Taken 09/25/18] Cardio [place] Healthy 1 cap PO DAILY SUPPLEMENT 05/22/20 [History Last Taken Unknown] amlodipine 5 mg tablet (Norvasc) 5 mg PO DAILY HTN 11/09/21 [History Last Taken Unknown] lisinopril 20 mg tablet 20 mg PO BID HTN 11/09/21 [History Last Taken Unknown] hydralazine 25 mg tablet 50 mg PO QHS HTN 03/18/22 [History Last Taken Unknown] artery cleanse 1 tab PO DAILY 04/01/22 [History Last Taken Unknown] cholecalciferol (vitamin D3) 125 mcg (5,000 unit) capsule 125 mcg PO DAILY 04/01/22 [History Last Taken Unknown] cinnamon bark 500 mg capsule (Cinnamon) 500 mg PO DAILY 04/01/22 [History Last Taken Unknown] circu max gold 1 dose PO DAILY SUPPLEMENT 04/01/22 [History Last Taken Unknown] liver supplement 1 cap PO QHS SUPPLEMENT 04/01/22 [History Last Taken Unknown] silver 2 tsp PO DAILY SUPPLEMENT 04/01/22 [History Last Taken Unknown] clonidine HCl 0.1 mg tablet 0.1 mg PO QHS 05/15/22 [History Last Taken Unknown] Allergy/AdvReac Type Severity Reaction Status Date / Time morphine AdvReac Intermediate mental Verified 05/14/22 20:21 status change meperidine HCl [From Demerol] AdvReac Mild mental Verified 05/14/22 20:21 status change Family History Brother Diabetes Heart disease Hypertension Lung cancer Mother Hypertension Brother Colon cancer 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 housing: house Smoking Status: Never smoker alcohol intake: never substance use type: does not use what type of physical activity do you participate in: none seatbelt use: always do you feel safe at home: Yes Physical Exam Const alert, oriented x3 and no apparent distress HEENT normocephalic and head/scalp atraumatic Eyes PERRL and EOMs intact bilaterally Neck supple and No nodes Resp normal air movement and clear to auscultation bilaterally Cardio regular rate and regular rhythm GI soft to palpation, non-tender and non-distended Extremity General Extremity: Negative for edema Skin no rashes or lesions noted Skin Narrative: reviewed photo of R breast surg site Neuro CN's II-XII intact bilaterally Lab / Micro Data Attestation: I reviewed the patient's lab results. Result Diagrams: 05/17/22 04:46 05/17/22 04:46 Labs: Laboratory Results - last 24 hr 05/16/22 16:54: POC Glucose 129 H 05/16/22 21:48: POC Glucose 105 05/17/22 04:46: WBC 10.4, RBC 4.12 L, Hgb 12.3, Hct 37.2, MCV 90.3, MCH 29.9, MCHC 33.1, RDW Std Deviation 46.4 H, RDW Coeff of Pedro 13.9, Plt Count 261, MPV 10.0, Immature Gran % (Auto) 0.500, Neut % (Auto) 62.4, Lymph % (Auto) 23.0, [place] % (Auto) 9.3, Eos % (Auto) 4.1, Baso % (Auto) 0.7, Absolute Neuts (auto) 6.5, Absolute Lymphs (auto) 2.39, Nucleated RBC % 0 05/17/22 04:46: Sodium 138, Potassium 4.2, Chloride 108 H, Carbon Dioxide 24.0, Anion Gap 6, BUN 28 H, Creatinine 1.38 H, Estim Creat Clear Calc 22.49, Est GFR (MDRD) Af Amer 47 L, Est GFR (MDRD) Non-Af 39 L, BUN/Creatinine Ratio 20.3 H, Glucose 121 H, Calcium 9.4 05/17/22 05:11: POC Glucose 117 H 05/17/22 11:42: POC Glucose 140 H Micro: Microbiology 05/14/22 22:53 Blood Culture (Wb) - Left Forearm Blood Culture - Preliminary No growth in 48 hours. 05/14/22 22:02 Blood Culture (Wb) - Anticubital Left Blood Culture - Preliminary No growth in 48 hours. 05/15/22 12:51 Incision/Surgical Site Gram Stain - Final 05/15/22 12:51 Incision/Surgical Site Wound Culture - Final Pseudomonas aeroginosa 05/15/22 12:51 Incision/Surgical Site Anaerobic Culture - Preliminary No growth in 48 hours. 05/15/22 03:15 Wound - Breast, Right Gram Stain - Final 05/15/22 03:15 Wound - Breast, Right Wound Culture - Final Pseudomonas aeroginosa 05/15/22 12:49 Incision/Surgical Site Gram Stain - Final 05/15/22 12:49 Incision/Surgical Site Wound Culture - Preliminary No growth-Final to follow 05/15/22 12:49 Incision/Surgical Site Anaerobic Culture - Preliminary No growth in 48 hours. ABG Data ABG results: ABG 05/17/22 07:53 Specimen Type ART Sample Site L Brach pH 7.37 Bicarbonate Actual 24.5 Total CO2 26 Base Excess -1 O2 Saturation 90 L ABG pCO2 42.8 ABG pO2 61 L O2 Delivery Device Room Air Radiology Impression Lung Scan-VQ NM 05/17/22 10:33 IMPRESSION: 1. NORMAL 99m Tc MAA pulmonary perfusion imaging examination, according to PIOPED II interpretive criteria. (Sotsman et al, Radiology 246: 941, 2008 Sotsman et al, J Nucl Med 49: 1741, 2008). 2. Central clumping of the aerosol may be secondary to obstructive airway mechanics and or clinical tachypnea. Electronically Signed: Justyn Palma, at 13:02 EDT ,
[2022-05-17 16:30] LABS: Bedside Glucose 136 mg/dL (74-106)
[2022-05-17] MEDS: Latanoprost 0.005% 1 Bottle 1 DRP EACH EYE (22:15)
[2022-05-17 23:26] LABS: Bedside Glucose 121 mg/dL (74-106)
[2022-05-18] VITALS (11 sets, daily range): BP systolic 147–165; BP diastolic 49–80; PULSE 53–90; RESP 18–20; TEMP 36.4–36.8; O2SAT 91–96
[2022-05-18] MEDS: hydrALAZINE 50 MG Tablet 100 MG PO (05:31)
[2022-05-18] MEDS: Heparin Injection (Vial) 5,000 UNIT/ML VIAL 5000 UNIT SC (05:31)
[2022-05-18] MEDS: Acetaminophen 500 MG Tablet 1000 MG PO (05:31)
[2022-05-18 06:11] LABS: Bedside Glucose 128 mg/dL (74-106)
[2022-05-18 06:25] LABS: Absolute Lymphocyte Count 1.52 X10^3/uL (0.83-4.51); Absolute Neutrophil Count 4.7 X10^3/uL (2.0-7.7); Basophil# 0.06 X10^3/uL; Basophil% 0.8 % (0-1); Eosinophils% 4.1 % (0-5); Hematocrit 32.6 % (37-47); Hemoglobin 10.8 g/dL (12.0-15.0); Lymphocyte # 1.52 X10^3/ul (0.83-4.51); Mean Corp Hgb Conc 33.1 g/dL (32-36); Mean Corpuscular Hgb 30.1 pg (27.0-32.0); Mean Corpuscular Volume 90.8 fL (81-99); Monocyte# 0.65 X10^3/uL; NRBC Flagged by Analyzer 0 % (0-5); Neutrophil # 4.67 X10^3/uL (2.7-7.7); Neutrophil % 64.7 % (47-70); Platelet Count 255 K/mm3 (150-450); RBC Distribution Width SD 46.5 fl (35.1-43.9); Red Blood Count 3.59 M/mm3 (4.2-5.4); White Blood Count 7.2 K/mm3 (4.4-11.0)
[2022-05-18 06:48] LABS: Anion Gap 8 (5-15); BUN 27 mg/dL (7-18); BUN/Creat Ratio 23.5 RATIO (10-20); Calcium,Total 9.4 mg/dL (8.5-10.1); Chloride 107 mmol/L (98-107); Creatinine, Serum 1.15 mg/dL (0.55-1.02); EST Glomerular Filtration Rate 48 mL/min (>60); Est Glom Filt Rate - Afr Amer 58 mL/min (>60); Estimated Creatinine Clearance 26.99 ml/min; Glucose 128 mg/dL (74-106); Potassium 4.5 mmol/L (3.5-5.1); Sodium Level 137 mmol/L (136-145)
[2022-05-18] MEDS: Albuterol 2.5 MG/3 ML VIAL.NEB. INHALATION (07:22)
[2022-05-18] MEDS: NATEGLINIDE 60 MG TABLET PO ×2 (07:54→12:30)
[2022-05-18] MEDS: Ciprofloxacin 500 MG Tablet PO (07:54)
[2022-05-18] MEDS: amLODIPine 5 MG Tablet PO (07:55)
[2022-05-18] MEDS: Metoprolol(XL)Succ 25 MG Tablet PO (07:55)
[2022-05-18] MEDS: Ascorbic Acid 500 MG Tablet PO (07:56)
[2022-05-18] MEDS: Cholecalciferol (Vit D3) 125 MCG CAPSULE (5,000 UNITS) PO (07:56)
[2022-05-18] MEDS: Lisinopril 20 MG Tablet PO (07:58)
[2022-05-18] MEDS: Glucerna Shake 120 ML LIQUID PO (08:00)
--- NOTE | 2022-05-18 08:12 | PN.SURG_ITS ---
Subjective Subjective Patient did states she had been of a rough night states is due to her extra blood pressure meds that she received. Patient's mood does seem to be improved from yesterday. Patient's previous Zosyn and Vanco were stopped and patient is currently on Cipro. Objective Data Objective Data Vital Signs: Vital Signs Temp Pulse Resp BP Pulse Ox O2 Del Method O2 Flow Rate 98.3 F 70 18 148/53 H 94 Nasal Cannula 2 05/18/22 04:45 05/18/22 07:55 05/18/22 04:45 05/18/22 05:31 05/18/22 04:45 05/18/22 04:45 05/18/22 04:45 Oxygen Flow Rate (L/min) 2 Oxygen Delivery Method Nasal Cannula Weight: 230 lb 13.184 oz Body Mass Index (BMI) 43.6 Intake & Output: Intake and Output for Last 24 Hours 05/16/22 05/17/22 05/18/22 23:59 23:59 23:59 Intake Total 852.75 / 852.75 1750 / 1750 Balance 852.75 / 852.75 1750 / 1750 Lab / Micro Data Result Diagrams: 05/18/22 05:55 05/18/22 05:55 Labs: Laboratory Results - last 24 hr 05/17/22 11:42: POC Glucose 140 H 05/17/22 16:08: POC Glucose 136 H 05/17/22 22:19: POC Glucose 121 H 05/18/22 05:30: POC Glucose 128 H 05/18/22 05:55: WBC 7.2, RBC 3.59 L, Hgb 10.8 L, Hct 32.6 L, MCV 90.8, MCH 30.1, MCHC 33.1, RDW Std Deviation 46.5 H, RDW Coeff of Pedro 14.0, Plt Count 255, MPV 10.0, Immature Gran % (Auto) 0.400, Neut % (Auto) 64.7, Lymph % (Auto) 21.0, [place] % (Auto) 9.0, Eos % (Auto) 4.1, Baso % (Auto) 0.8, Absolute Neuts (auto) 4.7, Absolute Lymphs (auto) 1.52, Nucleated RBC % 0 05/18/22 05:55: Sodium 137, Potassium 4.5, Chloride 107, Carbon Dioxide 22.0, Anion Gap 8, BUN 27 H, Creatinine 1.15 H, Estim Creat Clear Calc 26.99, Est GFR (MDRD) Af Amer 58 L, Est GFR (MDRD) Non-Af 48 L, BUN/Creatinine Ratio 23.5 H, Glucose 128 H, Calcium 9.4 Micro: Microbiology 05/14/22 22:53 Blood Culture (Wb) - Left Forearm Blood Culture - Preliminary No growth in 48 hours. 05/14/22 22:02 Blood Culture (Wb) - Anticubital Left Blood Culture - Preliminary No growth in 48 hours. 05/15/22 12:51 Incision/Surgical Site Gram Stain - Final 05/15/22 12:51 Incision/Surgical Site Wound Culture - Final Pseudomonas aeroginosa 05/15/22 12:51 Incision/Surgical Site Anaerobic Culture - Preliminary No growth in 48 hours. 05/15/22 03:15 Wound - Breast, Right Gram Stain - Final 05/15/22 03:15 Wound - Breast, Right Wound Culture - Final Pseudomonas aeroginosa 05/15/22 12:49 Incision/Surgical Site Gram Stain - Final 05/15/22 12:49 Incision/Surgical Site Wound Culture - Preliminary No growth-Final to follow 05/15/22 12:49 Incision/Surgical Site Anaerobic Culture - Preliminary No growth in 48 hours. 05/14/22 22:02 Urine, Clean Catch Urine Culture - Final Mixed Gram Pos & Gram Neg Org 05/14/22 22:07 Nasal Secretion SARS-CoV-2 & FLU Antigen (Rapid) - Final Radiography Diagnostic Testing: Radiology Impression Lung Scan-VQ NM 05/17/22 10:33 IMPRESSION: 1. NORMAL 99m Tc MAA pulmonary perfusion imaging examination, according to PIOPED II interpretive criteria. (Sotsman et al, Radiology 246: 941, 2008 Sotsman et al, J Nucl Med 49: 1741, 2008). 2. Central clumping of the aerosol may be secondary to obstructive airway mechanics and or clinical tachypnea. Electronically Signed: Justyn Palma, at 13:02 EDT , Physical Exam Narrative Right breast incision with permanent sutures as well as a Stanley. The Carol was pulled out from the cavity to just keep the skin , Carol still in place with safety pin. Excess Carol was removed. Axillary incision well- healed, no erythema previous erythema near incision improved. Const oriented x3 and no apparent distress Assessment & Plan Assessment/Plan (1) Infected seroma, postoperative: PLAN: Patient's cultures did grow Pseudomonas. Patient antibiotics were changed from Zosyn/Vanco yesterday to Cipro yesterday and ID was also consulted. Stanley drain was pulled out from the cavity a bit but is still an enough to separate the skin and reconnected with the safety pin. Wound is progressing well. Okay to DC per surgical standpoint. Patient will follow-up in office early next week if she did DC. Odalys Mccullough M.D. Pager: [phone] [facility] [address] [place] [address], [address] [place] [address] Office: [phone]
--- NOTE | 2022-05-18 08:22 | PCA ---
patient walking halls with therapy.
--- NOTE | 2022-05-18 10:27 | PCM.DC ---
Discharge Instructions Diet Discharge Diet: 1800 Calorie Control Diet Activity Discharge Activity: Return to Normal Activity Weight Bearing Status: Weight bearing as tolerated Dressing / Incision Call your doctor if you observe: Fever of 101 or Higher, Coldness, Increased Pain, Numbness or Tingling, Change in Color, Inability to urinate, Inability to have a bowel movement, Shortness of breath, Dizziness, Fainting spells, Swelling in the ankles, Chest pain, Prolonged hiccupping, Increased palpitations (irregular heartbeat), Calf discomfort and Uncontrolled pain Follow Up Care Test Results: Test results from this visit will be discussed in further detail at your follow-up appointment, if applicable. Discharge Plan Admission Admit Date/Time: 05/15/22 00:59 Primary Reason for Your Visit: Infected upper quadrrightant breast seroma Attending Provider: Meng Martinez Primary Care Provider: Martina Lal Consulting Providers: Willy Booth ; Felice Waller ; Loan Luu ; Michael Baires Discharge Orders/Prescriptions Prescriptions: New ciprofloxacin HCl 500 mg Tablet 500 mg PO BID Qty: 14 0RF acetaminophen 500 mg Tablet 1,000 mg PO Q8 Qty: 0 0RF Rx Instructions: OTC TID for 5 days then prn as needed for pain hydralazine 50 mg Tablet 100 mg PO TID Qty: 90 0RF carvedilol 6.25 mg tablet 6.25 mg PO BID Qty: 60 1RF Rx Instructions: must administer with a meal/food hydrochlorothiazide 12.5 mg tablet 12.5 mg PO DAILY Qty: 30 0RF Continued Cardio [place] Healthy 1 cap PO DAILY lisinopril 20 mg tablet 20 mg PO BID Label Comments: TAKE 1 TABLET BY MOUTH EVERY DAY cholecalciferol (vitamin D3) 125 mcg (5,000 unit) capsule 125 mcg PO DAILY artery cleanse 1 tab PO DAILY cinnamon bark [Cinnamon] 500 mg capsule 500 mg PO DAILY silver 2 tsp PO DAILY circu max gold 1 dose PO DAILY liver supplement 1 cap PO QHS latanoprost [Xalatan] 1 DROP bottle 1 drp EACH EYE QHS Label Comments: EYE HEALTH ascorbic acid (vitamin C) 500 MG tablet 500 mg PO DAILY@0800 Label Comments: suppliment omega-3 fatty acids-fish oil 1 EACH capsule 1 ea PO DAILY Label Comments: supplement aspirin 81 mg tablet,chewable 81 mg PO DAILY Label Comments: PT'S LAST DOSE OF ASPIRIN WILL BE 04/26/2022 nateglinide 60 MG tablet 60 mg PO TID Label Comments: diabetes clonidine HCl 0.1 mg tablet 0.1 mg PO QHS Discontinued metoprolol succinate 50 mg tablet extended release 24 hr 25 mg PO BID amlodipine [Norvasc] 5 mg tablet 5 mg PO DAILY hydralazine 25 mg tablet 50 mg PO QHS Referrals / Follow Up: Martina Lal DO [Primary Care Provider] - Disposition Disposition (needs filled in before D/C Order can be placed): Home Health Service
--- NOTE | 2022-05-18 10:43 | DS.PCM_ITS ---
Providers Date of Admission: 05/15/22 Date of Discharge: 05/18/22 Primary Care Physician: Dr. Martina Lal, Consultations 05/15/22 02:32 Consult: General Surgery Routine Consulting Provider: Felice Waller Reason for Consult: axilllary abscess EMERGENT Consult: No Notified: Yes Date Notified: 05/15/22 Time Notified: 01:01 Method of Notification: ED Physician Initiated Consult: Onc/Wound/erp manager Routine Comment: 05/17/22 07:25 Consult: Infectious Disease Routine Consulting Provider: Michael Baires Reason for Consult: pseudomonas positive Breast abscess with invasive ductal carcinoma EMERGENT Consult: No MD Notified: Yes Date Notified: 05/17/22 Time Notified: 07:25 Method of Notification: Text Reason For Visit: ABCESS Diagnosis Discharge Diagnosis (1) Infected seroma, postoperative: Status: Acute Medications at Discharge Home Medications ascorbic acid (vitamin C) 500 mg tablet 500 mg PO DAILY@0800 supplement 07/29/14 latanoprost 0.005 % eye drops (Xalatan) 1 drp EACH EYE QHS 07/29/14 omega-3 fatty acids-fish oil 300 mg-1,000 mg capsule 1 ea PO DAILY 07/29/14 nateglinide 60 mg tablet 60 mg PO TID BLOOD GLUCOSE 08/27/17 aspirin 81 mg chewable tablet 81 mg PO DAILY HEART HEALTH 06/26/18 Cardio [place] Healthy 1 cap PO DAILY SUPPLEMENT 05/22/20 lisinopril 20 mg tablet 20 mg PO BID HTN 11/09/21 artery cleanse 1 tab PO DAILY 04/01/22 cholecalciferol (vitamin D3) 125 mcg (5,000 unit) capsule 125 mcg PO DAILY 04/01/22 cinnamon bark 500 mg capsule (Cinnamon) 500 mg PO DAILY 04/01/22 circu max gold 1 dose PO DAILY SUPPLEMENT 04/01/22 liver supplement 1 cap PO QHS SUPPLEMENT 04/01/22 silver 2 tsp PO DAILY SUPPLEMENT 04/01/22 clonidine HCl 0.1 mg tablet 0.1 mg PO QHS 05/15/22 acetaminophen 500 mg tablet 1,000 mg PO Q8 #0 tabs 05/18/22 carvedilol 6.25 mg tablet 6.25 mg PO BID #60 tabs 05/18/22 ciprofloxacin HCl 500 mg tablet 500 mg PO BID #14 tabs 05/18/22 hydralazine 50 mg tablet 100 mg PO TID #90 tabs 05/18/22 hydrochlorothiazide 12.5 mg tablet 12.5 mg PO DAILY #30 tabs 05/18/22 Hospital Course Summary of Care Provided Hospital Course: This is a 86-year-old female who was admitted through ER for right axillary pain and swelling, status post ultrasound-guided right breast partial mastectomy on . She developed postop seroma, started drainage on 05/08, fever and chills with worsening of right axillary and breast pain. CT chest shows 8.4 cm seroma within the right axillary region and thick-walled 6.7 cm fluid collection with internal air bubbles surrounding fat stranding in the inferior lateral right breast area. 1. Infected right upper quadrant breast and axillary region seroma/abscess: Patient ultrasound-guided fine-needle aspiration of right axillary seroma and afterwards open debridement and evacuation on 05/15/2022. Surgeon follow-up note reviewed. Dressing was changed. Carol was advanced. Patient declined wound packing technique. Bhavya patient was on broad-spectrum antibiotic vancomycin and Zosyn. Wound culture showing Pseudomonas. ID is consulted. Antibiotic narrowed down to Cipro. I discussed in detail with patient's daughter. 05/18: Patient discharged on 7 days of Cipro as recommended by ID. Mild hypoxia -Suspect baseline obstructive sleep apnea that is untreated/bilateral lung atelectasis. Patient daughter is concerned therefore ABG done.ABG shows a gradient, 10 more than expected from her age. VQ scan ordered. Would recommend outpatient polysomnography -Also could be related to obesity hypoventilation syndrome as patient's BMI is 43.6 -CT scan did not show any significant signs of infiltrate or pulmonary edema on presentation. Patient saturating 90% on room air. Home qualification oxygen ordered. 05/18: Hypoxia resolved. Advised to continue incentive spirometry as patient had mild left pleural effusion. Abnormal urinalysis -UA was slightly suspicious for infection however urine culture has no growth to date -UA showed leukoesterase and nitrites with minimal white cells and 1+ bacteria -Urine culture itself looks contaminated with mixed gram-positive and gram- negative organisms -Continue to monitor -Pathogens in the urine should be covered with antibiotics utilized for her above abscess at this point anyway CKD stage IIIb -Serum creatinine is stable -Baseline 1.1-1.3, slight elevation from baseline. Currently trending down -Avoid nephrotoxins -Has outpatient nephrology follow-up on Friday with Dr. Kwok. She is also scheduled renal duplex scan. Mobitz type I second-degree heart block -Appears to have progressed from a first-degree heart block on previous EKGs -No current work-up needed at this time -Continue to monitor as an outpatient Hypertension -Metoprolol changed to carvedilol 6.25 mg twice daily. First dose of carvedilol given here as patient wanted to try before taking her home. -Continue home clonidine -Continue hydralazine at increased dose 100 mg--> blood pressure is much better with this change and would recommend discharge home on this increased dose -Continue home lisinopril 20 mg twice daily. -Monitor blood pressure as she has been having some difficulty at home with elevated pressures -TSH is within normal limits 05/18: Patient's daughter had concern about leg swelling from amlodipine therefore discontinued. Started on HCTZ 12.5 mg daily. She could not sleep, increased worry, dizziness with increased dose of clonidine 0.2 mg therefore patient was put back on home dose 0.2 mg daily at night as ordered by PCP Invasive ductal carcinoma -ER/MS positive -Oncology follow-up as an outpatient DM-2 -Hold home oral agents -A1c 6.1 states good control -Sliding scale insulin -Acute checks as ordered -Carb controlled cardiac diet History of glaucoma -Continue home eyedrop drops Bilateral carotid artery stenosis -Follow as an outpatient -No urgent issues -Continue home medication regimen Obstructive sleep apnea -Patient noncompliant at home at baseline -May need oxygen when sleeping -Monitor sats Generalized weakness/debility -PT/OT following -We will likely need home health at discharge -Case management consulted DVT prophylaxis -SCDs. Heparin 520 8 subcutaneous 3 times daily. Discharge medication reconciliation done. Discharge follow-up instructions completed. Discharge process discussed with the patient and all questions were answered to patient's satisfaction. Follow-up with surgeon Dr. Michel and PCP admission discharge instruction Total time spent, exact 35 minutes on discharge meds reconciliation, examination, coordination of care with nurses and ancillary staff, review of imaging and blood test and discussion with the patient on follow-up instructions. Physical Exam Narrative Physical exam No fever or chills. No hypoxia at rest, BP good control as regards to her age. Pulse ox 91% ambulating on room air. 96% at rest on room air. General: Alert, Oriented x3, Cooperative height 43.6 kg/m?, morbid obesity HEENT: Atraumatic, PERRLA, EOMI, Normocephalic Oral: No Gingival or Mucosal Lesions/ Ulcerations Neck: Supple, No JVD, Negative Carotid Bruits Lungs/chest: Right breast dressing is mild soaked. Small [place] drain. Dressing was changed. Air entry diminished in bilateral lung bases. No crepitation/rhonchi Cardiovascular: Regular rate, Regular Rhythm, Normal S1, Normal S2, No murmurs Abdomen: Bowel Sounds Present, Soft, Non Tender, Non-Distended : No renal angle tenderness. No suprapubic tenderness. Extremities: Mild ankle pitting edema, Capillary Refill Less than 3 Seconds Skin: No rashes, No breakdown Musculoskeletal: No Tenderness to Palpation of Joints or Extremities Neurological: Cranial nerves II-XII grossly intact, DTR 2+/4 and Symmetrical, Neuro grossly intact Psych/Mental Status: Normal Affect, Appropriate. Weight / BMI Weight Weight: 230 lb 13.184 oz Body Mass Index (BMI) 43.6 ABG / Lab / Microbiology Data Result Diagrams: 05/18/22 05:55 05/18/22 05:55 Laboratory: Laboratory Results - last 24 hr 05/17/22 11:42: POC Glucose 140 H 05/17/22 16:08: POC Glucose 136 H 05/17/22 22:19: POC Glucose 121 H 05/18/22 05:30: POC Glucose 128 H 05/18/22 05:55: WBC 7.2, RBC 3.59 L, Hgb 10.8 L, Hct 32.6 L, MCV 90.8, MCH 30.1, MCHC 33.1, RDW Std Deviation 46.5 H, RDW Coeff of Pedro 14.0, Plt Count 255, MPV 10.0, Immature Gran % (Auto) 0.400, Neut % (Auto) 64.7, Lymph % (Auto) 21.0, [place] % (Auto) 9.0, Eos % (Auto) 4.1, Baso % (Auto) 0.8, Absolute Neuts (auto) 4.7, Absolute Lymphs (auto) 1.52, Nucleated RBC % 0 05/18/22 05:55: Sodium 137, Potassium 4.5, Chloride 107, Carbon Dioxide 22.0, Anion Gap 8, BUN 27 H, Creatinine 1.15 H, Estim Creat Clear Calc 26.99, Est GFR (MDRD) Af Amer 58 L, Est GFR (MDRD) Non-Af 48 L, BUN/Creatinine Ratio 23.5 H, Glucose 128 H, Calcium 9.4 Microbiology: Microbiology 05/15/22 12:49 Incision/Surgical Site Gram Stain - Final 05/15/22 12:49 Incision/Surgical Site Wound Culture - Final No growth aerobically. 05/15/22 12:49 Incision/Surgical Site Anaerobic Culture - Preliminary No growth in 48 hours. 05/14/22 22:53 Blood Culture (Wb) - Left Forearm Blood Culture - Preliminary No growth in 48 hours. 05/14/22 22:02 Blood Culture (Wb) - Anticubital Left Blood Culture - Preliminary No growth in 48 hours. 05/15/22 12:51 Incision/Surgical Site Gram Stain - Final 05/15/22 12:51 Incision/Surgical Site Wound Culture - Final Pseudomonas aeroginosa 05/15/22 12:51 Incision/Surgical Site Anaerobic Culture - Preliminary No growth in 48 hours. 05/15/22 03:15 Wound - Breast, Right Gram Stain - Final 05/15/22 03:15 Wound - Breast, Right Wound Culture - Final Pseudomonas aeroginosa 05/14/22 22:02 Urine, Clean Catch Urine Culture - Final Mixed Gram Pos & Gram Neg Org 05/14/22 22:07 Nasal Secretion SARS-CoV-2 & FLU Antigen (Rapid) - Final Radiography Diagnostic Testing: Radiology Impression Lung Scan-VQ NM 05/17/22 10:33 IMPRESSION: 1. NORMAL 99m Tc MAA pulmonary perfusion imaging examination, according to PIOPED II interpretive criteria. (Sotsman et al, Radiology 246: 941, 2008 Sotsman et al, J Nucl Med 49: 1741, 2008). 2. Central clumping of the aerosol may be secondary to obstructive airway mechanics and or clinical tachypnea. Electronically Signed: Justyn Palma, at 13:02 EDT , D/C Instructions Discharge Diet: 1800 Calorie Control Diet Weight Bearing Status: Weight bearing as tolerated Call your doctor if you observe: Fever of 101 or Higher, Coldness, Increased Pain, Numbness or Tingling, Change in Color, Inability to urinate, Inability to have a bowel movement, Shortness of breath, Dizziness, Fainting spells, Swelling in the ankles, Chest pain, Prolonged hiccupping, Increased palpitations (irregular heartbeat), Calf discomfort and Uncontrolled pain Meaningful Use Info Meaningful Use Diagnoses (Choose all that apply): None applicable Discharge Plan Admission Admit Date/Time: 05/15/22 00:59 Primary Reason for Your Visit: Infected upper quadrrightant breast seroma Attending Provider: Meng Martinez Primary Care Provider: Martina Lal Consulting Providers: Willy Booth ; Felice Waller ; Loan Luu ; Michael Baires Discharge Orders/Prescriptions Prescriptions: New ciprofloxacin HCl 500 mg Tablet 500 mg PO BID Qty: 14 0RF acetaminophen 500 mg Tablet 1,000 mg PO Q8 Qty: 0 0RF Rx Instructions: OTC TID for 5 days then prn as needed for pain hydralazine 50 mg Tablet 100 mg PO TID Qty: 90 0RF carvedilol 6.25 mg tablet 6.25 mg PO BID Qty: 60 1RF Rx Instructions: must administer with a meal/food hydrochlorothiazide 12.5 mg tablet 12.5 mg PO DAILY Qty: 30 0RF Continued Cardio [place] Healthy 1 cap PO DAILY lisinopril 20 mg tablet 20 mg PO BID Label Comments: TAKE 1 TABLET BY MOUTH EVERY DAY cholecalciferol (vitamin D3) 125 mcg (5,000 unit) capsule 125 mcg PO DAILY artery cleanse 1 tab PO DAILY cinnamon bark [Cinnamon] 500 mg capsule 500 mg PO DAILY silver 2 tsp PO DAILY circu max gold 1 dose PO DAILY liver supplement 1 cap PO QHS latanoprost [Xalatan] 1 DROP bottle 1 drp EACH EYE QHS Label Comments: EYE HEALTH ascorbic acid (vitamin C) 500 MG tablet 500 mg PO DAILY@0800 Label Comments: suppliment omega-3 fatty acids-fish oil 1 EACH capsule 1 ea PO DAILY Label Comments: supplement aspirin 81 mg tablet,chewable 81 mg PO DAILY Label Comments: PT'S LAST DOSE OF ASPIRIN WILL BE 04/26/2022 nateglinide 60 MG tablet 60 mg PO TID Label Comments: diabetes clonidine HCl 0.1 mg tablet 0.1 mg PO QHS Discontinued metoprolol succinate 50 mg tablet extended release 24 hr 25 mg PO BID amlodipine [Norvasc] 5 mg tablet 5 mg PO DAILY hydralazine 25 mg tablet 50 mg PO QHS Referrals / Follow Up: Martina Lal DO [Primary Care Provider] - Within 1 Week Michael Michel MD [Med Staff - Active Staff] - In 1 Week Disposition Disposition (needs filled in before D/C Order can be placed): Home Health Service Charges/Coding Visit Charges Inpatient E&M: 20354 Disch Hosp
[2022-05-18 11:11] LABS: Bedside Glucose 193 mg/dL (74-106)
--- NOTE | 2022-05-18 11:49 | NURSING ---
spoke w/pt and daughter and did dressing demonstration-gave enough for 3 dressing changes reviewed d/c instructions w/pt and daughter they were encouraged to leave and pickers material handlers Rx x4 and start new meds as prescribed
[2022-05-18] MEDS: Carvedilol 6.25 MG Tablet PO (12:29)
--- NOTE | 2022-05-18 13:49 | CASEMGMT ---
SHAWN RAINEY in to discuss discharge planning needs. Patient and daughter would like HHC. A list of HHC providers including quality and resource use data and consistent with the patient?s preferred geographical region, medical needs, and insurance network were provided from the [facility]. Patient choices for HHC are 1. [facility] 2. [facility] 3. [facility] 4. [facility] 5. [facility]. RN BRIGID explained to patient and daughter that HHC referral will be sent on Friday, patient and daughter voiced understanding. Patient and daughter had no further questions or concerns at this time.
== END 2022-05-18 13:55 | disposition home health service (06) | DRG 908 ==
LOC: ED 21:37 → MS3 05-15 03:48
PROVIDERS: Internal Medicine; Surgery; Emergency Provider Emergency Medicine; PCP Internal Medicine; Visit Provider Internal Medicine
PROC: 0H9T0ZZ Drainage of Right Breast, Open Approach (ICD-10-PCS; principal; 2022-05-15 11:05)
DX: L76.34 Postprocedural seroma of skin and subcutaneous tissue following other procedure (principal); E66.2 Morbid (severe) obesity with alveolar hypoventilation; T81.41XA Infection following a procedure, superficial incisional surgical site, initial encounter; Z68.41 Body mass index [BMI] 40.0-44.9, adult; J98.11 Atelectasis; I44.1 Atrioventricular block, second degree; C50.911 Malignant neoplasm of unspecified site of right female breast; B96.5 Pseudomonas (aeruginosa) (mallei) (pseudomallei) as the cause of diseases classified elsewhere; E11.22 Type 2 diabetes mellitus with diabetic chronic kidney disease; N18.32 Chronic kidney disease, stage 3b; E78.5 Hyperlipidemia, unspecified; I12.9 Hypertensive chronic kidney disease with stage 1 through stage 4 chronic kidney disease, or unspecified chronic kidney disease; I16.0 Hypertensive urgency; I65.23 Occlusion and stenosis of bilateral carotid arteries; R09.02 Hypoxemia; R82.90 Unspecified abnormal findings in urine; R53.1 Weakness; R53.81 Other malaise; Z17.0 Estrogen receptor positive status [ER+]; Z90.11 Acquired absence of right breast and nipple; Z91.199 Patient's noncompliance with other medical treatment and regimen due to unspecified reason; Z79.82 Long term (current) use of aspirin; Z79.84 Long term (current) use of oral hypoglycemic drugs; Z79.899 Other long term (current) drug therapy; Z28.310 Unvaccinated for COVID-19; Z28.9 Immunization not carried out for unspecified reason
CPT/HCPCS: 36415; 36600; 71250; 78582; 80048; 80053; 80202; 81001; 82803; 82962; 83036; 83605; 83735; 84100; 84443; 85025; 85027; 87040; 87070; 87075; 87077; 87086; 87088; 87184; 87186; 87205; 87428; 93005; 94640; 97110; 97162; 97166; 97530; 97535; 97802; 99251; 99284; A9540; A9567; J7030; J7050; A4216; G0463; J2405

== ENCOUNTER 2022-05-19 22:18 | Inpatient (IN) | payer MEDICARE, SELFPAY ==
[2022-05-19 22:18] VITALS: BP 201/75; PULSE 78; RESP 18; TEMP 36.8; O2SAT 87; BMI 43.4
--- NOTE | 2022-05-19 22:48 | EKG12_ITS ---
Test Reason : SOB Blood Pressure : / mmHG Vent. Rate : 072 BPM Atrial Rate : 072 BPM P-R Int : 204 ms QRS Dur : 086 ms QT Int : 384 ms P-R-T Axes : 075 029 064 degrees QTc Int : 420 ms Normal sinus rhythm Normal ECG Confirmed by MARTINEZ LAINEZ, FREEMAN ([id number]), editor newspaper MANASA EGAN ([id number]) on 05/21/2022 1:08:53 PM Referred By: RU Confirmed By:FREEMAN HENRIQUEZ MD
--- NOTE | 2022-05-19 22:49 | ED.VIS.DYS ---
HPI History of Present Illness Chief Complaint: Shortness of Breath Detail of Chief Complaint: Shortness of breath and high blood pressure Narrative Narrative: Patient presents with shortness of breath with exertion and elevated blood pressures. Patient states tonight she began feeling some chills. Patient was recently admitted for a postop wound infection that she had drained. Patient was noted to be hypoxic and had a VQ scan during her admission which was negative for PE. Patient also had a left pleural effusion at that time. Apparently her hypoxia resolved and she did not go home on home oxygen. At home her O2 sat at rest has been in the 80s at times. She denies any chest pain. She has had a slight cough. She denies fevers. [facility] Medical History Ambulates with cane Arthritis Bilateral carotid artery stenosis Bilateral extracranial carotid artery stenosis Cancer Difficulty swallowing GERD (gastroesophageal reflux disease) History of edema History of IBS History of renal disease History of steroid therapy HTN (hypertension) Hyperlipidemia Leg cramps Non-smoker PONV (postoperative nausea and vomiting) Shortness of breath on exertion Sleep apnea Type 2 diabetes mellitus Wears glasses Wears hearing aid Home Medications ascorbic acid (vitamin C) 500 mg tablet 500 mg PO BID supplement 07/29/14 [History Last Taken 09/25/18] latanoprost 0.005 % eye drops (Xalatan) 1 drp EACH EYE QHS 07/29/14 [History Last Taken 09/24/18] omega-3 fatty acids-fish oil 300 mg-1,000 mg capsule 1 ea PO DAILY 07/29/14 [History Last Taken 09/25/18] nateglinide 60 mg tablet 60 mg PO TID BLOOD GLUCOSE 08/27/17 [History Last Taken 09/25/18 08:00] aspirin 81 mg chewable tablet 81 mg PO DAILY HEART HEALTH 06/26/18 [History Last Taken 09/24/18] Cardio [place] Healthy 1 cap PO DAILY SUPPLEMENT 05/22/20 [History Last Taken Unknown] lisinopril 20 mg tablet 20 mg PO BID HTN 11/09/21 [History Last Taken Unknown] artery cleanse 1 tab PO DAILY 04/01/22 [History Last Taken Unknown] cholecalciferol (vitamin D3) 125 mcg (5,000 unit) capsule 125 mcg PO DAILY 04/01/22 [History Last Taken Unknown] cinnamon bark 500 mg capsule (Cinnamon) 500 mg PO DAILY 04/01/22 [History Last Taken Unknown] circu max gold 1 dose PO DAILY SUPPLEMENT 04/01/22 [History Last Taken Unknown] liver supplement 1 cap PO QHS SUPPLEMENT 04/01/22 [History Last Taken Unknown] silver 2 tsp PO DAILY SUPPLEMENT 04/01/22 [History Last Taken Unknown] clonidine HCl 0.1 mg tablet 0.1 mg PO QHS 05/15/22 [History Last Taken Unknown] acetaminophen 500 mg tablet 1,000 mg PO Q8 #0 tabs 05/18/22 [Rx Last Taken Unknown] carvedilol 6.25 mg tablet 6.25 mg PO BID #60 tabs 05/18/22 [Rx Last Taken Unknown] ciprofloxacin HCl 500 mg tablet 500 mg PO BID #14 tabs 05/18/22 [Rx Last Taken Unknown] hydralazine 50 mg tablet 100 mg PO TID #90 tabs 05/18/22 [Rx Last Taken Unknown] hydrochlorothiazide 12.5 mg tablet 12.5 mg PO DAILY #30 tabs 05/18/22 [Rx Last Taken Unknown] Allergy/AdvReac Type Severity Reaction Status Date / Time morphine AdvReac Intermediate mental Verified 05/19/22 22:20 status change meperidine HCl [From Demerol] AdvReac Mild mental Verified 05/19/22 22:20 status change Family History Brother Diabetes Heart disease Hypertension Lung cancer Mother Hypertension Brother Colon cancer 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 housing: house Smoking Status: Never smoker alcohol intake: never substance use type: does not use what type of physical activity do you participate in: none seatbelt use: always do you feel safe at home: Yes ROS ROS ED Review of Systems ROS Unobtainable: other Constitutional Constitutional ED: Reports lethargy; Denies chills, fever(s), sweats or weight loss Eyes Eyes: Denies blurry vision, change in vision or diplopia ENT ENT ED: Denies rhinorrhea or sore throat Cardiovascular Cardiovascular: Denies chest pain, orthopnea or racing heartbeat Respiratory/Chest Respiratory/Chest: Reports dyspnea and dyspnea on exertion; Denies cough, orthopnea or sputum Gastrointestinal Gastrointestinal: Denies abdominal pain, diarrhea, nausea or vomiting Genitourinary Genitourinary ED: Denies dysuria, hematuria or urinary frequency Musculoskeletal Musculoskeletal: Denies arthralgias, back pain, myalgias or neck pain Integumentary Denies abscess, Abrasions or rash Neurologic Neurologic: Denies headache(s) or weakness Psychiatric Psychiatric: Denies anxiety, depression or suicidal thoughts Endocrine Endocrinology: Denies polydipsia, polyphagia or polyuria Hematologic/Lymphatic Hematologic/Lymphatic: Denies easy bleeding, easy bruising or lymphadenopathy Allergic/Immunologic Allergic/Immunologic ED: Denies mouth swelling, tongue swelling or urticaria EXAM Physical Exam Const Vital Signs: 05/19/22 22:18 05/19/22 23:08 05/19/22 23:08 Temperature 98.2 F Temperature Source Temporal Pulse Rate 78 75 Respiratory Rate 18 20 H Respiratory Effort Respiratory Depth Respiratory Pattern Blood Pressure 201/75 H Blood Pressure Mean 117 Pulse Ox 87 994 94 Oxygen Delivery Method Room Air Nasal Cannula Nasal Cannula Oxygen Flow Rate (L/min) 2 2 05/19/22 23:08 05/19/22 23:15 05/19/22 23:05 Temperature 98.3 F Temperature Source Temporal Pulse Rate 60 75 Respiratory Rate 16 23 H Respiratory Effort Normal Non-Labored Respiratory Depth Normal Respiratory Pattern Normal Normal Blood Pressure 217/69 H Blood Pressure Mean 118 Pulse Ox 93 Oxygen Delivery Method Room Air Nasal Cannula Oxygen Flow Rate (L/min) 2 Positive well nourished and well developed General Appearance ED: well developed and NAD HEENT Reports TM's clear and moist mucous membranes normocephalic and atraumatic; Negative for trauma or tenderness Tympanic Membrane ED: Yes TM's clear Eyes PERRL and EOMs intact bilaterally General Eye ED: Negative for pale conjunctiva or scleral icterus Neck no lymphadenopathy, supple and no JVD General: Negative for tenderness Chest Wall inspection of chest normal and palpation of chest normal Chest: Negative for tenderness Resp normal respiratory effort and clear to auscultation bilaterally Resp Narrative: Patient with rales in both bases. No conversational dyspnea. No accessory muscle use or retractions. On monitor at times on room air she is in the 88% range. Effort and Inspection: Negative for respiratory distress or pain with movement Auscultation: rales; Negative for rhonchi, wheezes or diminished lung sounds Cardio regular rate, regular rhythm, S1 normal heart sound, S2 normal heart sound and no murmurs Peripheral Pulses: pulses 2+ throughout GI normal to inspection, nondistended, normoactive bowel sounds, soft to palpation, non-tender, non-distended and no masses Back/Spine no CVA tenderness and no thoracic nor lumbar tenderness Extremity normal to inspection General Extremety ED: Negative for edema General Extremity: Negative for edema Neuro oriented x3, CN's II-XII intact bilaterally, no sensory deficits noted and gait normal Sensorium / Orientation: awake, alert, oriented to person, oriented to place and oriented to time Motor Exam: strength 5/5 throughout and strength abnormal Psych mental status grossly normal Skin no rashes or lesions noted and no wounds MDM MDM MDM Narrative Medical decision making narrative: IV line established on arrival. Patient given labetalol 20 mg IV. Chest x-ray showed CHF. I did give her 80 mg Lasix IV. Chemistries were unremarkable. BNP was 296. Patient was placed on 2 L nasal cannula O2. Lab Data Attestation: I reviewed the patient's lab results. Labs: Laboratory Results - last 24 hr 05/19/22 05/19/22 05/19/22 23:08 23:08 23:08 WBC 8.9 RBC 4.03 L Hgb 12.2 Hct 35.4 L MCV 87.8 MCH 30.3 MCHC 34.5 RDW Std Deviation 43.4 RDW Coeff of Pedro 13.4 Plt Count 326 MPV 9.5 Immature Gran % (Auto) 1.500 H Neut % (Auto) 63.2 Lymph % (Auto) 21.9 [place] % (Auto) 8.9 Eos % (Auto) 3.5 Baso % (Auto) 1.0 Absolute Neuts (auto) 5.6 Absolute Lymphs (auto) 1.95 Nucleated RBC % 0 Sodium 135 L Potassium 4.5 Chloride 104 Carbon Dioxide 23.0 Anion Gap 8 BUN 25 H Creatinine 1.19 H Estim Creat Clear Calc 26.08 Est GFR (MDRD) Af Amer 55 L Est GFR (MDRD) Non-Af 46 L BUN/Creatinine Ratio 21.0 H Glucose 116 H Calcium 10.3 H Troponin I High Sens 111 H B-Natriuretic Peptide 296.1 H Radiography Chest X-Ray - ED: 1 View Diagnostic Testing: Clinical Impression(s) from Imaging Studies Chest X-Ray 05/19/22 22:58 IMPRESSION: Mild pulmonary edema and small pleural effusions, suggesting CHF. Electronically Signed: Peyman Vaca MD at 23:13 EDT , Chest x-ray obtained 1 view interpreted by myself as pulmonary congestion and mild cardiomegaly with small pleural effusions. Radiology in agreement. EKG Initial EKG: Attestation: I personally reviewed and interpreted this EKG as follows: Comments: Sinus rhythm with a rate of 72 bpm with no acute ST segment changes Prior EKG tracings: available for review Prior: Unchanged Discharge Plan Triage Chief Complaint: Shortness of Breath ED Provider: Lisa Mariscal Dx/Rx/DC Orders Clinical Impression: CHF (congestive heart failure), Hypoxemia, Hypertension Prescriptions: No Action Cardio [place] Healthy 1 cap PO DAILY lisinopril 20 mg tablet 20 mg PO BID Label Comments: TAKE 1 TABLET BY MOUTH EVERY DAY cholecalciferol (vitamin D3) 125 mcg (5,000 unit) capsule 125 mcg PO DAILY artery cleanse 1 tab PO DAILY cinnamon bark [Cinnamon] 500 mg capsule 500 mg PO DAILY silver 2 tsp PO DAILY circu max gold 1 dose PO DAILY liver supplement 1 cap PO QHS latanoprost [Xalatan] 1 DROP bottle 1 drp EACH EYE QHS Label Comments: EYE HEALTH ascorbic acid (vitamin C) 500 MG tablet 500 mg PO BID Label Comments: suppliment omega-3 fatty acids-fish oil 1 EACH capsule 1 ea PO DAILY Label Comments: supplement aspirin 81 mg tablet,chewable 81 mg PO DAILY Label Comments: PT'S LAST DOSE OF ASPIRIN WILL BE 04/26/2022 nateglinide 60 MG tablet 60 mg PO TID Label Comments: diabetes clonidine HCl 0.1 mg tablet 0.1 mg PO QHS ciprofloxacin HCl 500 mg Tablet 500 mg PO BID Qty: 14 0RF acetaminophen 500 mg Tablet 1,000 mg PO Q8 Qty: 0 0RF Rx Instructions: OTC TID for 5 days then prn as needed for pain hydralazine 50 mg Tablet 100 mg PO TID Qty: 90 0RF carvedilol 6.25 mg tablet 6.25 mg PO BID Qty: 60 1RF Rx Instructions: must administer with a meal/food hydrochlorothiazide 12.5 mg tablet 12.5 mg PO DAILY Qty: 30 0RF Primary Care Provider: Martina Lal Referrals: Martina Lal DO [Primary Care Provider] - Disposition Disposition: Acute Care Hospital [facility]
--- NOTE | 2022-05-19 22:58 | RAD_ITS ---
EXAM: XR CHEST, 1 VIEW CLINICAL INDICATION: dyspnea TECHNIQUE: Frontal view of the chest. This report was created using [employer] report generation technology. COMPARISON: None. FINDINGS: LUNGS AND PLEURAL SPACES: Mild pulmonary edema and small pleural effusions. No pneumothorax. HEART: Mild enlargement of the cardiac silhouette. MEDIASTINUM: Central airways and mediastinal contour are unremarkable. BONES/JOINTS: Degenerative changes of the spine. SOFT TISSUES: Unremarkable. RAD/Chest 1 View (Portable) IMPRESSION: Mild pulmonary edema and small pleural effusions, suggesting CHF. Electronically Signed: Peyman Vaca MD at 23:13 EDT ,
[2022-05-19 23:05] VITALS: PULSE 75; RESP 23
[2022-05-19] MEDS: Ipratropium/Albuterol Sulfate 3 ML AMPUL.NEB INHALATION (23:05)
[2022-05-19 23:08] VITALS: PULSE 75; RESP 20; O2SAT 88; O2SAT 94; O2SAT 994
[2022-05-19 23:13] LABS: Absolute Lymphocyte Count 1.95 X10^3/uL (0.83-4.51); Absolute Neutrophil Count 5.6 X10^3/uL (2.0-7.7); Basophil# 0.09 X10^3/uL; Eosinophil# 0.31 X10^3/uL; Eosinophils% 3.5 % (0-5); Hematocrit 35.4 % (37-47); Hemoglobin 12.2 g/dL (12.0-15.0); Lymphocyte # 1.95 X10^3/ul (0.83-4.51); Lymphocyte % 21.9 % (19-41); Mean Corp Hgb Conc 34.5 g/dL (32-36); Mean Corpuscular Hgb 30.3 pg (27.0-32.0); Mean Corpuscular Volume 87.8 fL (81-99); Mean Platelet Vol. 9.5 fl (6.2-12.0); Monocyte# 0.79 X10^3/uL; Monocyte% 8.9 % (0-10); NRBC Flagged by Analyzer 0 % (0-5); Neutrophil # 5.62 X10^3/uL (2.7-7.7); Neutrophil % 63.2 % (47-70); Platelet Count 326 K/mm3 (150-450); RBC Distribution Width CV 13.4 % (11.6-14.6); RBC Distribution Width SD 43.4 fl (35.1-43.9); Red Blood Count 4.03 M/mm3 (4.2-5.4); White Blood Count 8.9 K/mm3 (4.4-11.0)
[2022-05-19] MEDS: Labetalol (Prefilled) 20 MG/4 ML IV (23:13)
[2022-05-19 23:15] VITALS: BP 217/69; PULSE 60; RESP 16; TEMP 36.8; O2SAT 93
[2022-05-19 23:30] LABS: BNP,B-Type NATRIURETIC PEPTIDE 296.1 pg/mL (0-100)
[2022-05-19 23:31] LABS: Anion Gap 8 (5-15); BUN 25 mg/dL (7-18); Calcium,Total 10.3 mg/dL (8.5-10.1); Chloride 104 mmol/L (98-107); Creatinine, Serum 1.19 mg/dL (0.55-1.02); EST Glomerular Filtration Rate 46 mL/min (>60); Est Glom Filt Rate - Afr Amer 55 mL/min (>60); Estimated Creatinine Clearance 26.08 ml/min; Glucose 116 mg/dL (74-106); Potassium 4.5 mmol/L (3.5-5.1); Sodium Level 135 mmol/L (136-145); Troponin-I HS 111 pg/mL (3.0-54.0)
[2022-05-20] VITALS (19 sets, daily range): BP systolic 126–179; BP diastolic 39–60; PULSE 60–75; RESP 16–18; TEMP 36.2–36.9; O2SAT 92–94; BMI 44.0
[2022-05-20] MEDS: Furosemide 100 MG/10 ML Vial 80 MG IV (00:57)
--- NOTE | 2022-05-20 01:46 | ECHOD_ITS ---
Version 2 Reason For Study: CHF Left Ventricle Normal size and thickness. Moderate concentric left ventricular hypertrophy. Left ventricular systolic function is normal. The estimated ejection fraction is 60 %. Stage 2 diastolic dysfunction. No regional wall motion abnormalities noted. Right Ventricle Normal RV size. Normal systolic function. Atria Normal left atrium. Normal right atrium. Mitral Valve Normal mitral valve. Mild (1+) eccentric mitral valve insufficiency. Tricuspid Valve Normal tricuspid valve. Mild to moderate (1-2+) tricuspid valve insufficiency. Pulmonary artery systolic pressure is 49 mmHg. Aortic Valve The aortic valve is not well visualized. Pulmonic Valve Normal pulmonic valve. Great Vessels Normal aortic root. The pulmonary artery is normal size. Normal inferior vena cava. Pericardium/Pleural No pericardial effusion. MMode/2D Measurements & Calculations LVIDd: 5.9 cm IVSd: 0.83 cm LAV(MOD-bp): 99.8 ml LVIDs: 3.6 cm LVPWd: 1.2 cm LAV(MOD-bp) Indexed: 49.5 ml/m2 RVDd: 3.3 cm FS: 37.8 % LAV(MOD-sp2): 94.1 ml LAV(MOD-sp4): 101.2 ml LA A4 area: 27.4 cm2 LA dimension(2D): 4.4 cm RA A4 area: 17.1 cm2 Time Measurements MV dec time: 0.23 sec Doppler Measurements & Calculations MV E max erwin: 124.5 cm/sec Lat Peak E' Erwin: 11.7 cm/sec Med Peak E' Erwin: 7.6 cm/sec MV A max erwin: 72.4 cm/sec E/E' lat: 10.6 E/E' med: 16.3 MV E/A: 1.7 MV dec slope: 532.6 cm/sec2 Ao V2 max: 190.0 cm/sec LV V1 max: 128.0 cm/sec Ao max P.4 mmHg LV V1 max P.6 mmHg Ao V2 mean: 136.8 cm/sec LV V1 mean P.6 mmHg Ao mean P.5 mmHg LV V1 mean: 89.6 cm/sec Ao V2 VTI: 49.6 cm LV V1 VTI: 32.7 cm PA V2 max: 103.8 cm/sec TR max erwin: 330.4 cm/sec TR max P.7 mmHg ECHO/Echo Complete Interpretation Summary Left ventricular systolic function is normal. The estimated ejection fraction is 60 %. Normal size and thickness. Moderate concentric left ventricular hypertrophy. Stage 2 diastolic dysfunction. Ordering Physician: Willy Booth Referring Physician: Martina Lla Performed By: Sandra Bruce, HOANG, RVT
--- NOTE | 2022-05-20 01:46 | HP.PCM.HOS_ITS ---
HPI - General General Date of Admission: 05/20/22 Date of Service: 05/20/22 Chief Complaint: short of breath HPI Narrative DEBBIE KENNEY, is a 86 F who presents with shortness of breath. Patient was just discharged on the with an infected right upper quadrant breast seroma and abscess. Patient underwent evacuation on the . Culture grew out Pseudomonas and patient was changed over to ciprofloxacin. Patient did have some hypoxia w hile she was here during that admission and underwent a VQ scan that was negative. Patient has had a home sleep study test that, course of daughter, confirmed the patient had sleep apnea but CPAP was not by her insurance. Patient was at home and became just short of breath. To the emergency room and she was 87% on room air. Blood pressure was 217/69. Chest x-ray showed pulmonary vascular congestion. In the emergency room, she received aerosols, labetalol for blood pressure, and 80 mg of Lasix. Patient has been placed on oxygen as well and is feeling better. She denies any chest pain. [facility] Medical History Ambulates with cane Arthritis Bilateral carotid artery stenosis Bilateral extracranial carotid artery stenosis Cancer Difficulty swallowing GERD (gastroesophageal reflux disease) History of edema History of IBS History of renal disease History of steroid therapy HTN (hypertension) Hyperlipidemia Leg cramps Non-smoker PONV (postoperative nausea and vomiting) Shortness of breath on exertion Sleep apnea Type 2 diabetes mellitus Wears glasses Wears hearing aid Home Medications ascorbic acid (vitamin C) 500 mg tablet 500 mg PO BID supplement 07/29/14 [History Last Taken 09/25/18] latanoprost 0.005 % eye drops (Xalatan) 1 drp EACH EYE QHS 07/29/14 [History Last Taken 09/24/18] omega-3 fatty acids-fish oil 300 mg-1,000 mg capsule 1 ea PO DAILY 07/29/14 [History Last Taken 09/25/18] nateglinide 60 mg tablet 60 mg PO TID BLOOD GLUCOSE 08/27/17 [History Last Taken 09/25/18 08:00] aspirin 81 mg chewable tablet 81 mg PO DAILY HEART HEALTH 06/26/18 [History Last Taken 09/24/18] Cardio [place] Healthy 1 cap PO DAILY SUPPLEMENT 05/22/20 [History Last Taken Unknown] lisinopril 20 mg tablet 20 mg PO BID HTN 11/09/21 [History Last Taken Unknown] artery cleanse 1 tab PO DAILY 04/01/22 [History Last Taken Unknown] cholecalciferol (vitamin D3) 125 mcg (5,000 unit) capsule 125 mcg PO DAILY 04/01/22 [History Last Taken Unknown] cinnamon bark 500 mg capsule (Cinnamon) 500 mg PO DAILY 04/01/22 [History Last Taken Unknown] circu max gold 1 dose PO DAILY SUPPLEMENT 04/01/22 [History Last Taken Unknown] liver supplement 1 cap PO QHS SUPPLEMENT 04/01/22 [History Last Taken Unknown] silver 2 tsp PO DAILY SUPPLEMENT 04/01/22 [History Last Taken Unknown] clonidine HCl 0.1 mg tablet 0.1 mg PO QHS 05/15/22 [History Last Taken Unknown] acetaminophen 500 mg tablet 1,000 mg PO Q8 #0 tabs 05/18/22 [Rx Last Taken Unknown] carvedilol 6.25 mg tablet 6.25 mg PO BID #60 tabs 05/18/22 [Rx Last Taken Unknown] ciprofloxacin HCl 500 mg tablet 500 mg PO BID #14 tabs 05/18/22 [Rx Last Taken Unknown] hydralazine 50 mg tablet 100 mg PO TID #90 tabs 05/18/22 [Rx Last Taken Unknown] hydrochlorothiazide 12.5 mg tablet 12.5 mg PO DAILY #30 tabs 05/18/22 [Rx Last Taken Unknown] Allergy/AdvReac Type Severity Reaction Status Date / Time morphine AdvReac Intermediate mental Verified 05/20/22 01:46 status change meperidine HCl [From Demerol] AdvReac Mild mental Verified 05/20/22 01:46 status change Family History Brother Diabetes Heart disease Hypertension Lung cancer Mother Hypertension Brother Colon cancer 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 Has put on roughly 2 to 3 pounds since her last presentation. She states that she put on weight while she was in the hospital. All review of systems were negative except as mentioned above in the history of present illness and the other review of systems. Vital Signs Vital Signs Vital Signs: 05/19/22 22:18 05/19/22 23:08 05/19/22 23:08 Temperature 36.8 C Temperature Source Temporal Pulse Rate 78 75 Respiratory Rate 18 20 H Respiratory Effort Respiratory Depth Respiratory Pattern Blood Pressure 201/75 H Blood Pressure Mean 117 Pulse Ox 87 994 94 Oxygen Delivery Method Room Air Nasal Cannula Nasal Cannula Oxygen Flow Rate (L/min) 2 2 05/19/22 23:08 05/19/22 23:15 05/19/22 23:05 Temperature 36.8 C Temperature Source Temporal Pulse Rate 60 75 Respiratory Rate 16 23 H Respiratory Effort Normal Non-Labored Respiratory Depth Normal Respiratory Pattern Normal Normal Blood Pressure 217/69 H Blood Pressure Mean 118 Pulse Ox 93 Oxygen Delivery Method Room Air Nasal Cannula Oxygen Flow Rate (L/min) 2 05/20/22 00:58 Temperature 36.7 C Temperature Source Temporal Pulse Rate 70 Respiratory Rate 18 Respiratory Effort Respiratory Depth Respiratory Pattern Blood Pressure 175/60 H Blood Pressure Mean 98 Pulse Ox 94 Oxygen Delivery Method Nasal Cannula Oxygen Flow Rate (L/min) 2 Weight Weight: 105.8 kg Body Mass Index (BMI) 44.0 Physical Exam Const alert and no apparent distress Constitutional Narrative: No respiratory distress. HEENT normocephalic, head/scalp atraumatic, hearing grossly normal bilaterally and moist oral mucous membranes Neck no lymphadenopathy Resp Resp Narrative: Faint bibasilar crackles Cardio regular rate, regular rhythm, S1 normal heart sound and S2 normal heart sound GI normal to inspection, nondistended, normoactive bowel sounds, soft to palpation, non-tender and non-distended Extremity Extremity Narrative: Bilateral lower extremity edema. 1+. Skin Skin Narrative: Right breast incision is well approximated no surrounding erythema. Neuro oriented x3, moves all extremities and no focal motor deficits Sensorium / Orientation: awake and alert Psych affect normal Results Lab / Micro Data Attestation: I reviewed the patient's lab results. Result Diagrams: 05/19/22 23:08 05/19/22 23:08 Labs: Laboratory Results - last 24 hr 05/19/22 23:08: WBC 8.9, RBC 4.03 L, Hgb 12.2, Hct 35.4 L, MCV 87.8, MCH 30.3, MCHC 34.5, RDW Std Deviation 43.4, RDW Coeff of Pedro 13.4, Plt Count 326, MPV 9.5, Immature Gran % (Auto) 1.500 H, Neut % (Auto) 63.2, Lymph % (Auto) 21.9, [place] % (Auto) 8.9, Eos % (Auto) 3.5, Baso % (Auto) 1.0, Absolute Neuts (auto) 5.6, Absolute Lymphs (auto) 1.95, Nucleated RBC % 0 05/19/22 23:08: Sodium 135 L, Potassium 4.5, Chloride 104, Carbon Dioxide 23.0, Anion Gap 8, BUN 25 H, Creatinine 1.19 H, Estim Creat Clear Calc 26.08, Est GFR (MDRD) Af Amer 55 L, Est GFR (MDRD) Non-Af 46 L, BUN/Creatinine Ratio 21.0 H, Glucose 116 H, Calcium 10.3 H, Troponin I High Sens 111 H 05/19/22 23:08: B-Natriuretic Peptide 296.1 H EKG Initial EKG: Attestation: I personally reviewed and interpreted this EKG as follows: Prior EKG tracings: available for review EKG Rhythm Intrepretation: Sinus Rhythm Radiology Impression Chest X-Ray 05/19/22 22:58 IMPRESSION: Mild pulmonary edema and small pleural effusions, suggesting CHF. Electronically Signed: Peyman Vaca MD at 23:13 EDT , Assessment & Plan Assessment/Plan (1) CHF (congestive heart failure): PLAN: I suspect flash pulmonary edema given the patient's extremely high blood pressures when she came in. Unclear type Plan: * Check echo * IV furosemide 40 mg twice daily (2) Acute respiratory failure with hypoxia: PLAN: Secondary to above Wean oxygen as tolerated Check amatory oxygenation before discharge I do not feel that any CT angiogram is necessary at this time as VQ scan was negative. (3) Breast abscess: PLAN: Patient undergone ultrasound-guided aspiration on the . Culture grew out Pseudomonas. Continue ciprofloxacin Consult wound care for wound management Follow-up general surgery as outpatient for suture removals (4) Hypertensive urgency: PLAN: Patient having compliant with her medications. Her hydralazine was increased from 50-100 3 times daily. Her metoprolol was changed over to carvedilol 6.25 mg twice daily, continue with clonidine 0.1 mg nightly and lisinopril 20 mg twice daily. She had been on HCTZ but will hold that while she is on Lasix She had been on amlodipine when she was admitted last time and that was discontinued. We will resume. PLAN: Plan Chronic conditions: * Diabetes mellitus type 2: Continue with nateglinide. Add sliding scale insulin. A1c was 6.1 from 05/16 * CKD 3 A: Patient was to follow-up with nephrology today. Told the patient's daughter that that will need to be rescheduled * History of adrenal incidentaloma: Patient will need to follow-up with endocrinology. Her appointment already had to be rescheduled to June. VTE prophylaxis: Enoxaparin CODE STATUS: Discussed with the patient. Patient wished to be DNR Comfort Care arrest no intubation Had a very long conversation with the patient's daughter at bedside. Patient's daughter is very caring but is very focused on very minute details and need because reminding to look at the bigger picture. Such that the patient's daughter was interested in the patient's first-degree AV heart block. She had previous been informed that is a benign condition and I reinforced that as well. She then focused on the terminology of the chronic kidney disease stage III that she has. Informed patient's daughter that she is getting way too bogged down with all these minute details and to look at the bigger picture. 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 Charges/Coding Visit Charges Inpatient E&M: 50671 Init Hosp L3
[2022-05-20 02:55] LABS: Troponin-I HS 99 pg/mL (3.0-54.0)
[2022-05-20] MEDS: Ondansetron 4 MG/2 ML Vial IV (03:27)
[2022-05-20] MEDS: 0.9% Saline Lock 10 ML Syringe IV ×2 (03:27→18:36)
[2022-05-20] MEDS: Acetaminophen 500 MG Tablet 1000 MG PO ×2 (03:30→14:15)
[2022-05-20] MEDS: hydrALAZINE 50 MG Tablet 100 MG PO ×3 (06:26→21:05)
[2022-05-20 06:34] LABS: Anion Gap 7 (5-15); BUN 25 mg/dL (7-18); BUN/Creat Ratio 20.5 RATIO (10-20); Calcium,Total 9.8 mg/dL (8.5-10.1); Chloride 103 mmol/L (98-107); Cholesterol 169 mg/dL (200); Creatinine, Serum 1.22 mg/dL (0.55-1.02); EST Glomerular Filtration Rate 44 mL/min (>60); Est Glom Filt Rate - Afr Amer 54 mL/min (>60); Estimated Creatinine Clearance 25.44 ml/min; Glucose 127 mg/dL (74-106); High Density Lipoprotein 40 mg/dL; Potassium 4.4 mmol/L (3.5-5.1); Sodium Level 135 mmol/L (136-145); Triglycerides 137 mg/dL; Very Low Density Lipoprotein 27 mg/dL (5-40)
[2022-05-20 06:45] LABS: Troponin-I HS 83 pg/mL (3.0-54.0)
[2022-05-20 07:05] LABS: Bedside Glucose 115 mg/dL (74-106)
--- NOTE | 2022-05-20 08:50 | PN.HOSP_ITS ---
Subjective Subjective Follow-up for possible heart failure exacerbation. Patient went home and stated she has difficulty in breathing/shortness of breath. Her breathing is better when she is upright and gets more swollen supine position. No chest pain. On 2 L of oxygen. BP is controlled but was 217/69 in ED. Objective Data Objective Data Vital Signs: Vital Signs Temp Pulse Resp BP Pulse Ox O2 Del Method O2 Flow Rate 97.1 F L 61 16 143/39 H 94 Nasal Cannula 2 05/20/22 08:10 05/20/22 08:10 05/20/22 08:10 05/20/22 08:10 05/20/22 08:10 05/20/22 08:10 05/20/22 08:10 Oxygen Flow Rate (L/min) 2 Oxygen Delivery Method Nasal Cannula Weight: 233 lb 3.985 oz Body Mass Index (BMI) 44.0 Intake & Output: Intake and Output for Last 24 Hours 05/18/22 05/19/22 05/20/22 23:59 23:59 23:59 Output Total 900 / 900 Balance -900 / -900 Lab / Micro Data Result Diagrams: 05/19/22 23:08 05/20/22 05:08 Labs: Laboratory Results - last 24 hr 05/19/22 23:08: WBC 8.9, RBC 4.03 L, Hgb 12.2, Hct 35.4 L, MCV 87.8, MCH 30.3, MCHC 34.5, RDW Std Deviation 43.4, RDW Coeff of Pedro 13.4, Plt Count 326, MPV 9.5, Immature Gran % (Auto) 1.500 H, Neut % (Auto) 63.2, Lymph % (Auto) 21.9, [place] % (Auto) 8.9, Eos % (Auto) 3.5, Baso % (Auto) 1.0, Absolute Neuts (auto) 5.6, Absolute Lymphs (auto) 1.95, Nucleated RBC % 0 05/19/22 23:08: Sodium 135 L, Potassium 4.5, Chloride 104, Carbon Dioxide 23.0, Anion Gap 8, BUN 25 H, Creatinine 1.19 H, Estim Creat Clear Calc 26.08, Est GFR (MDRD) Af Amer 55 L, Est GFR (MDRD) Non-Af 46 L, BUN/Creatinine Ratio 21.0 H, Glucose 116 H, Calcium 10.3 H, Troponin I High Sens 111 H 05/19/22 23:08: B-Natriuretic Peptide 296.1 H 05/20/22 02:00: Troponin I High Sens 99 H 05/20/22 05:08: Sodium 135 L, Potassium 4.4, Chloride 103, Carbon Dioxide 25.0, Anion Gap 7, BUN 25 H, Creatinine 1.22 H, Estim Creat Clear Calc 25.44, Est GFR (MDRD) Af Amer 54 L, Est GFR (MDRD) Non-Af 44 L, BUN/Creatinine Ratio 20.5 H, Glucose 127 H, Calcium 9.8, Triglycerides 137, Cholesterol 169, LDL Cholesterol 102, VLDL Cholesterol 27, HDL Cholesterol 40 05/20/22 05:08: Troponin I High Sens 83 H 05/20/22 06:25: POC Glucose 115 H Radiography Diagnostic Testing: Radiology Impression Chest X-Ray 05/19/22 22:58 IMPRESSION: Mild pulmonary edema and small pleural effusions, suggesting CHF. Electronically Signed: Peyman Vaca MD at 23:13 EDT , Physical Exam Psych Psych Narrative: Patient was admitted with shortness of breath, could not lay flat, mild orthopnea and hypoxia symptom complex suggestive of heart failure exacerbation: Chest x-ray individually reviewed and I agree with mild pulmonary edema Assessment & Plan Assessment/Plan (1) CHF (congestive heart failure): (2) Hypertensive urgency: PLAN: Plan and small pleural effusion. 1. Heart failure exacerbation, exact etiology, type and classification unclear: Patient admitted to PCU. Continue Lasix 40 mg IV twice daily. Heart failure core measures including intake and output, fluid restriction less than 1500 mL, daily weight monitoring, kidney and electrolytes monitoring. 2D echo is ordered. BNP elevated. During previous admission, patient had VQ scan and PE was ruled out. Needs outpatient work-up for obesity hypoventilation syndrome/sleep apnea. Continue incentive spirometry. 2. Hypertensive urgency/uncontrolled accelerated hypertension may be cause for pulmonary edema: During previous admission his hydralazine dose was increased 100 mg 3 times daily, metoprolol was changed to carvedilol 6.25 mg twice daily. Patient on clonidine 0.1 mg at night and lisinopril 20 mg twice daily. Blood pressure control is better. HCTZ on hold as patient is on Lasix. Amlodipine restarted as it was discontinued during last admission because of mild ankle edema. 3. CKD stage IIIa: Housekeeper Home was consulted at the request of patient and hypertensive urgency: On renal ultrasound, patient had atrophic left kidney but no hydronephrosis on right kidney. Incidentally noted adrenal mass. Work-up for retinal incidentaloma ordered by electric utility lineworker. Renal Doppler ordered but renal artery stenosis seems less likely as creatinine did go up on maximum dose of lisinopril. Mild fluctuation in creatinine from 1.2-1.4 probably due to hemodynamic fluid shift 4. Infected right upper quadrant breast and axillary region seroma/abscess: Patient had ultrasound-guided right breast partial mastectomy on April 30.? She developed postop seroma, started drainage on 05/08, fever and chills with worsening of right axillary and breast pain.? CT chest shows 8.4 cm seroma within the right axillary region and thick-walled 6.7 cm fluid collection with internal air bubbles surrounding fat stranding in the inferior lateral right b reast area. The patient had open debridement and evacuation on 05/15/2022.? It was done by Dr. Michael Michel and followed by surgeon. Patient was treated with broad- spectrum antibiotic vancomycin and Zosyn and then discharged on ciprofloxacin as per ID recommendation. Wound care nurse consult. 5. Diabetes mellitus type 2: Continue with nateglinide. A1c 6.1 on 05/16. Continue Accu-Chek and coverage Humalog sliding scale. 6. Other multiple comorbidities noted includes Mobitz type I second degree heart block, invasive ductal breast carcinoma, ER/FL positive, glaucoma, bilateral carotid artery stenosis, obstructive sleep apnea/OHS: Outpatient work- up and follow-up. Total time of the visit including total time spent in counseling or coordination of care, (more than 50% of the total time, spent in obtaining medical information from nurses and other ancillary care providers,explaining to the patient about labs, imaging, diagnosis and management of active complex medical conditions), discussion with electric utility lineworker, review of labs and imaging and overall clinical update and management plan given to patient's daughter is 40 minutes. Clinical Impression(s) from Imaging Studies Chest X-Ray 05/19/22 22:58 IMPRESSION: Mild pulmonary edema and small pleural effusions, suggesting CHF. Laboratory Results 05/19/22 23:08: WBC 8.9, RBC 4.03 L, Hgb 12.2, Hct 35.4 L, MCV 87.8, MCH 30.3, MCHC 34.5, RDW Std Deviation 43.4, RDW Coeff of Pedro 13.4, Plt Count 326, MPV 9.5 , Immature Gran % (Auto) 1.500 H, Neut % (Auto) 63.2, Lymph % (Auto) 21.9, [place] % (Auto) 8.9, Eos % (Auto) 3.5, Baso % (Auto) 1.0, Absolute Neuts (auto) 5.6, Absolute Lymphs (auto) 1.95, Nucleated RBC % 0 05/19/22 23:08: Sodium 135 L, Potassium 4.5, Chloride 104, Carbon Dioxide 23.0, Anion Gap 8, BUN 25 H, Creatinine 1.19 H, Estim Creat Clear Calc 26.08, Est GFR (MDRD) Af Amer 55 L, Est GFR (MDRD) Non-Af 46 L, BUN/Creatinine Ratio 21.0 H, Glucose 116 H, Calcium 10.3 H, Troponin I High Sens 111 H 05/19/22 23:08: B-Natriuretic Peptide 296.1 H 05/20/22 02:00: Troponin I High Sens 99 H 05/20/22 05:08: Sodium 135 L, Potassium 4.4, Chloride 103, Carbon Dioxide 25.0, Anion Gap 7, BUN 25 H, Creatinine 1.22 H, Estim Creat Clear Calc 25.44, Est GFR (MDRD) Af Amer 54 L, Est GFR (MDRD) Non-Af 44 L, BUN/Creatinine Ratio 20.5 H, Glucose 127 H, Calcium 9.8, Triglycerides 137, Cholesterol 169, LDL Cholesterol 102, VLDL Cholesterol 27, HDL Cholesterol 40 05/20/22 05:08: Troponin I High Sens 83 H 05/20/22 06:25: POC Glucose 115 H 05/20/22 11:18: POC Glucose 129 H Charges/Coding Visit Charges Inpatient E&M: 99594 Subs Hosp L3
[2022-05-20] MEDS: Lisinopril 20 MG Tablet PO ×2 (09:11→21:05)
[2022-05-20] MEDS: Aspirin 81 MG TAB.CHEW PO (09:11)
[2022-05-20] MEDS: Carvedilol 6.25 MG Tablet PO ×2 (09:12→18:35)
[2022-05-20] MEDS: Cholecalciferol (Vit D3) 125 MCG CAPSULE (5,000 UNITS) PO (09:12)
[2022-05-20] MEDS: NATEGLINIDE 60 MG TABLET PO ×3 (09:12→18:35)
[2022-05-20] MEDS: Ascorbic Acid 500 MG Tablet PO ×2 (09:12→18:37)
[2022-05-20] MEDS: amLODIPine 5 MG Tablet PO (09:12)
[2022-05-20] MEDS: Enoxaparin 30 MG/0.3 ML Syringe SC (09:12)
[2022-05-20] MEDS: Furosemide 40 MG/4 ML Vial IV ×2 (09:13→18:36)
[2022-05-20] MEDS: Omega-3 Acid Ethyl Esters 1 GM Capsule PO (09:14)
[2022-05-20] MEDS: Ciprofloxacin 500 MG Tablet PO (09:14)
[2022-05-20] MEDS: Glucerna Shake 120 ML LIQUID PO ×3 (09:15→18:51)
--- NOTE | 2022-05-20 09:49 | WOUNDNOTE ---
wound photo: right breast
[2022-05-20 12:05] LABS: Bedside Glucose 129 mg/dL (74-106)
--- NOTE | 2022-05-20 12:15 | CASEMGMT ---
RN CM Chart review: Patient was admitted 05/15-05/18/22 for abscess. See RN CM assessment from 05/15. Patient was discharged and was to be setup with HHC on Friday after discharge on Friday. Daughter was taught wound care by nursing and was transitioned to oral antibiotics. Patient was tested for home oxygen prior to discharge and patient did not qualify. Patient returned on 05/19/22 for shortness of breath, chest xray revealed CHF. CM will assist patient with discharge planning and possible home oxygen at discharge. Will monitor progress with therapy for possible HHC vs SNF at discharge.
--- NOTE | 2022-05-20 15:13 | CASEMGMT ---
Social Work Consult: custodial placement/discharge planning Referral source: Dr. Martinez This social welfare clerk met with patient and patient daughter in room. Introduced self and social welfare clerk role. Patient agreeable to speak with this social welfare clerk and provided verbal permission for this social welfare clerk to speak openly with patient daughter present. This social welfare clerk broached topic of discharge plan for patient. Patient reports I plan to go home. Patient daughter states interest in skilled nursing placement and concerned with patient returning to home. This social welfare clerk communicating that therapy has not evaluated patient yet and this will help to determine patient level of care. Patient and patient daughter voiced understanding. Plan is to wait and see what therapy recommends. This social welfare clerk provided patient with list of nursing homes from [facility] that are in-network with patient insurance and local to patient geographical region. PLAN: custodial vs. home with home health. Nida BOYD, NIMA
--- NOTE | 2022-05-20 16:08 | CON.PCM.RE_ITS ---
Assessment & Plan Assessment/Plan (1) Hypertensive urgency: PLAN: Admitted with hypertension, fluid overload. Echocardiogram is pending. According to her blood pressure was fairly well controlled up until last few months. On review of her abdominal imaging from February, she has completely atrophic left kidney, no hydronephrosis on the right kidney. She was incidentally noted to have adrenal mass but at least on radiology reading it did not seem like adrenal adenoma. Not sure if this was a cyst in her previous left kidney. I will order adrenal incidentaloma work-up including renin, aldosterone, cortisol, metanephrines. Since she has atrophic left kidney and has uncontrolled hypertension, will order renal Dopplers as well. She is tolerating maximum dose of FREIDA inhibitor without significant changes in renal function, I doubt she will have critical renal artery stenosis but will verify. Continue current medications, further changes depending on blood pressure response. (2) Stage 3a chronic kidney disease (CKD): PLAN: Creatinine has been around 1.2 for a long time. Currently at 1.4, likely related to hemodynamic changes. Urine analysis is not impressive. Likely creatinine fluctuations related to volume changes. HPI Consult Data Date of Consult: 05/20/22 HPI Narrative Reason for Consultation: CKD, hypertension HPI Narrative: DEBBIE KENNEY, is a 86 F who presents to the hospital with fluid overload. Nephrology on consultation for CKD and hypertension. Somewhat complicated medical history. Recently diagnosed with breast mass, status post surgery, complicated by abscess which was treated successfully. She was readmitted with what looks like fluid overload. Echocardiogram done today, pending results. On review of chart, it seems she has CKD stage IIIa with baseline creatinine around 1.2 for several years. Current creatinine is around 1.4. She has had hypertension for several years, generally well controlled, over the last few months blood pressure has been significantly high. She has significant osteoarthritis of left shoulder, was recommended to have replacement, declined, got cortisone shots with pain management. Also has osteoarthritis of the spine, radiating pain anteriorly into the abdomen. Multiple blood pressure medications on board. Denies any urinary complaints, denies any NSAID use. [facility] Medical History Ambulates with cane Arthritis Bilateral carotid artery stenosis Bilateral extracranial carotid artery stenosis Cancer Difficulty swallowing GERD (gastroesophageal reflux disease) History of edema History of IBS History of renal disease History of steroid therapy HTN (hypertension) Hyperlipidemia Leg cramps Non-smoker PONV (postoperative nausea and vomiting) Shortness of breath on exertion Sleep apnea Type 2 diabetes mellitus Wears glasses Wears hearing aid Home Medications ascorbic acid (vitamin C) 500 mg tablet 500 mg PO DAILY supplement 07/29/14 [History Last Taken 09/25/18] latanoprost 0.005 % eye drops (Xalatan) 1 drp EACH EYE QHS Cataracts/Dry eye 07/29/14 [History Last Taken 09/24/18] omega-3 fatty acids-fish oil 300 mg-1,000 mg capsule 1 ea PO DAILY SUPPLEMENT 07/29/14 [History Last Taken 09/25/18] nateglinide 60 mg tablet 60 mg PO TID BLOOD GLUCOSE 08/27/17 [History Last Taken 09/25/18 08:00] aspirin 81 mg chewable tablet 81 mg PO DAILY HEART HEALTH 06/26/18 [History Last Taken 09/24/18] Cardio [place] Healthy 1 cap PO DAILY SUPPLEMENT 05/22/20 [History Last Taken Unknown] lisinopril 20 mg tablet 20 mg PO BID HTN 11/09/21 [History Last Taken Unknown] artery cleanse 1 tab PO DAILY arteries 04/01/22 [History Last Taken Unknown] cholecalciferol (vitamin D3) 125 mcg (5,000 unit) capsule 125 mcg PO DAILY SUPPLEMENT 04/01/22 [History Last Taken Unknown] cinnamon bark 500 mg capsule (Cinnamon) 500 mg PO DAILY SUPPLEMENT 04/01/22 [History Last Taken Unknown] circu max gold 1 dose PO DAILY SUPPLEMENT 04/01/22 [History Last Taken Unknown] liver supplement 1 cap PO QHS SUPPLEMENT 04/01/22 [History Last Taken Unknown] silver 2 tsp PO DAILY SUPPLEMENT 04/01/22 [History Last Taken Unknown] clonidine HCl 0.1 mg tablet 0.1 mg PO QHS BP 05/15/22 [History Last Taken Unknown] acetaminophen 500 mg tablet 1,000 mg PO Q8 #0 tabs 05/18/22 [Rx Last Taken Unknown] carvedilol 6.25 mg tablet 6.25 mg PO BID #60 tabs 05/18/22 [Rx Last Taken Unknown] ciprofloxacin HCl 500 mg tablet 500 mg PO BID #14 tabs 05/18/22 [Rx Last Taken 05/19/22] hydralazine 50 mg tablet 100 mg PO TID #90 tabs 05/18/22 [Rx Last Taken 05/19/22] hydrochlorothiazide 12.5 mg tablet 12.5 mg PO DAILY #30 tabs 05/18/22 [Rx Last Taken Unknown] Allergy/AdvReac Type Severity Reaction Status Date / Time morphine AdvReac Intermediate mental Verified 05/20/22 01:46 status change meperidine HCl [From Demerol] AdvReac Mild mental Verified 05/20/22 01:46 status change Family History (Updated 05/20/22 @ 02:04 by Magdalena Morris) Brother Pancreatic cancer Diabetes Heart disease Lung cancer Hypertension Colon cancer Mother Hypertension Brother No problems noted. 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 housing: house Smoking Status: Never smoker alcohol intake: never substance use type: does not use what type of physical activity do you participate in: none seatbelt use: always do you feel safe at home: Yes Physical Exam Narrative Alert awake oriented x 3 no obvious distress no pallor no icterus no JVD s1s2 no murmurs lungs clear abdomen soft no organomegaly no edema no cyanosis Lab / Micro Data Result Diagrams: 05/19/22 23:08 05/20/22 05:08 Labs: Laboratory Results - last 24 hr 05/19/22 23:08: WBC 8.9, RBC 4.03 L, Hgb 12.2, Hct 35.4 L, MCV 87.8, MCH 30.3, MCHC 34.5, RDW Std Deviation 43.4, RDW Coeff of Pedro 13.4, Plt Count 326, MPV 9.5, Immature Gran % (Auto) 1.500 H, Neut % (Auto) 63.2, Lymph % (Auto) 21.9, [place] % (Auto) 8.9, Eos % (Auto) 3.5, Baso % (Auto) 1.0, Absolute Neuts (auto) 5.6, Absolute Lymphs (auto) 1.95, Nucleated RBC % 0 05/19/22 23:08: Sodium 135 L, Potassium 4.5, Chloride 104, Carbon Dioxide 23.0, Anion Gap 8, BUN 25 H, Creatinine 1.19 H, Estim Creat Clear Calc 26.08, Est GFR (MDRD) Af Amer 55 L, Est GFR (MDRD) Non-Af 46 L, BUN/Creatinine Ratio 21.0 H, Glucose 116 H, Calcium 10.3 H, Troponin I High Sens 111 H 05/19/22 23:08: B-Natriuretic Peptide 296.1 H 05/20/22 02:00: Troponin I High Sens 99 H 05/20/22 05:08: Sodium 135 L, Potassium 4.4, Chloride 103, Carbon Dioxide 25.0, Anion Gap 7, BUN 25 H, Creatinine 1.22 H, Estim Creat Clear Calc 25.44, Est GFR (MDRD) Af Amer 54 L, Est GFR (MDRD) Non-Af 44 L, BUN/Creatinine Ratio 20.5 H, Glucose 127 H, Calcium 9.8, Triglycerides 137, Cholesterol 169, LDL Cholesterol 102, VLDL Cholesterol 27, HDL Cholesterol 40 05/20/22 05:08: Troponin I High Sens 83 H 05/20/22 06:25: POC Glucose 115 H 05/20/22 11:18: POC Glucose 129 H Radiology Impression Chest X-Ray 05/19/22 22:58 IMPRESSION: Mild pulmonary edema and small pleural effusions, suggesting CHF. Electronically Signed: Peyman Vaca MD at 23:13 EDT ,
[2022-05-20] MEDS: Juven (unflavored) Packet 1 PACKET PO (18:52)
[2022-05-20 19:00] LABS: Bedside Glucose 115 mg/dL (74-106)
[2022-05-20] MEDS: cloNIDine HCl 0.1 MG Tablet PO (21:05)
[2022-05-20] MEDS: Latanoprost 0.005% 1 Bottle 1 DRP EACH EYE (21:06)
[2022-05-20 21:40] LABS: Bedside Glucose 102 mg/dL (74-106)
[2022-05-21] VITALS (17 sets, daily range): BP systolic 130–165; BP diastolic 37–50; PULSE 47–66; RESP 16–18; TEMP 36.3–37.2; O2SAT 92–96
--- NOTE | 2022-05-21 04:30 | NURSING ---
Patient complaining about nasal dryness. Saline nasal spray ordered per Neneen
[2022-05-21] MEDS: Ciprofloxacin 500 MG Tablet PO ×2 (05:03→21:06)
[2022-05-21] MEDS: Sodium Chloride 0.65% 1 SPRAY SPRAY.BTL 2 SPRAY NASAL ×3 (05:05→21:07)
[2022-05-21] MEDS: hydrALAZINE 50 MG Tablet 100 MG PO ×3 (05:08→21:04)
[2022-05-21 07:00] LABS: Absolute Lymphocyte Count 2.44 X10^3/uL (0.83-4.51); Basophil# 0.09 X10^3/uL; Basophil% 1.1 % (0-1); Eosinophil# 0.31 X10^3/uL; Eosinophils% 3.9 % (0-5); Hematocrit 33.4 % (37-47); Hemoglobin 11.3 g/dL (12.0-15.0); Lymphocyte # 2.44 X10^3/ul (0.83-4.51); Lymphocyte % 30.9 % (19-41); Mean Corp Hgb Conc 33.8 g/dL (32-36); Mean Corpuscular Hgb 30.1 pg (27.0-32.0); Mean Corpuscular Volume 88.8 fL (81-99); Mean Platelet Vol. 9.6 fl (6.2-12.0); Monocyte# 0.97 X10^3/uL; Monocyte% 12.3 % (0-10); NRBC Flagged by Analyzer 0 % (0-5); Neutrophil # 4.01 X10^3/uL (2.7-7.7); Neutrophil % 50.9 % (47-70); Platelet Count 308 K/mm3 (150-450); RBC Distribution Width CV 13.8 % (11.6-14.6); RBC Distribution Width SD 44.7 fl (35.1-43.9); Red Blood Count 3.76 M/mm3 (4.2-5.4); White Blood Count 7.9 K/mm3 (4.4-11.0)
[2022-05-21 07:01] LABS: Bedside Glucose 94 mg/dL (74-106)
[2022-05-21 07:28] LABS: Anion Gap 5 (5-15); BUN 42 mg/dL (7-18); BUN/Creat Ratio 27.5 RATIO (10-20); Calcium,Total 9.9 mg/dL (8.5-10.1); Chloride 101 mmol/L (98-107); Creatinine, Serum 1.53 mg/dL (0.55-1.02); EST Glomerular Filtration Rate 34 mL/min (>60); Est Glom Filt Rate - Afr Amer 41 mL/min (>60); Estimated Creatinine Clearance 20.29 ml/min; Glucose 97 mg/dL (74-106); Magnesium 1.8 mg/dL (1.6-2.6); Phosphorus 4.2 mg/dL (2.5-4.9); Potassium 4.6 mmol/L (3.5-5.1); Sodium Level 135 mmol/L (136-145)
[2022-05-21] MEDS: Aspirin 81 MG TAB.CHEW PO (09:53)
[2022-05-21] MEDS: Ascorbic Acid 500 MG Tablet PO ×2 (09:53→17:01)
[2022-05-21] MEDS: amLODIPine 5 MG Tablet PO (09:53)
[2022-05-21] MEDS: Cholecalciferol (Vit D3) 125 MCG CAPSULE (5,000 UNITS) PO (09:54)
[2022-05-21] MEDS: Carvedilol 6.25 MG Tablet PO ×2 (09:54→17:01)
[2022-05-21] MEDS: Furosemide 40 MG/4 ML Vial IV (09:54)
[2022-05-21] MEDS: Lisinopril 20 MG Tablet PO (09:54)
[2022-05-21] MEDS: Omega-3 Acid Ethyl Esters 1 GM Capsule PO (09:54)
[2022-05-21] MEDS: Juven (unflavored) Packet 1 PACKET PO ×2 (09:54→17:01)
[2022-05-21] MEDS: Glucerna Shake 120 ML LIQUID PO ×3 (09:55→17:07)
[2022-05-21] MEDS: NATEGLINIDE 60 MG TABLET PO ×2 (09:57→17:01)
[2022-05-21] MEDS: 0.9% Saline Lock 10 ML Syringe IV (10:00)
[2022-05-21] MEDS: Enoxaparin 30 MG/0.3 ML Syringe SC (10:03)
[2022-05-21 13:35] LABS: Bedside Glucose 106 mg/dL (74-106)
--- NOTE | 2022-05-21 14:13 | PCM.PN.REN ---
Subjective Subjective No new complaints Objective Data Objective Data Vital Signs: Vital Signs Temp Pulse Resp BP Pulse Ox O2 Del Method O2 Flow Rate 97.8 F 57 L 18 132/37 H 96 Nasal Cannula 2 05/21/22 13:26 05/21/22 13:27 05/21/22 13:26 05/21/22 13:27 05/21/22 13:26 05/21/22 13:26 05/21/22 13:26 Oxygen Flow Rate (L/min) 2 Oxygen Delivery Method Nasal Cannula Weight: 104.3 kg Body Mass Index (BMI) 44.0 Intake & Output: Intake and Output for Last 24 Hours 05/19/22 05/20/22 05/21/22 23:59 23:59 23:59 Intake Total 720 / 720 360 / 360 Output Total 2400 / 3400 1450 / 1450 Balance -1680 / -2680 -1090 / -1090 Lab / Micro Data Result Diagrams: 05/21/22 06:30 05/21/22 06:30 Labs: Laboratory Results - last 24 hr 05/20/22 18:26: POC Glucose 115 H 05/20/22 21:04: POC Glucose 102 05/21/22 06:29: POC Glucose 94 05/21/22 06:30: Cortisol 12.00 05/21/22 06:30: WBC 7.9, RBC 3.76 L, Hgb 11.3 L, Hct 33.4 L, MCV 88.8, MCH 30.1, MCHC 33.8, RDW Std Deviation 44.7 H, RDW Coeff of Pedro 13.8, Plt Count 308, MPV 9.6, Immature Gran % (Auto) 0.900, Neut % (Auto) 50.9, Lymph % (Auto) 30.9, [place] % (Auto) 12.3 H, Eos % (Auto) 3.9, Baso % (Auto) 1.1 H, Absolute Neuts (auto) 4.0, Absolute Lymphs (auto) 2.44, Nucleated RBC % 0 05/21/22 06:30: Sodium 135 L, Potassium 4.6, Chloride 101, Carbon Dioxide 29.0, Anion Gap 5, BUN 42 H, Creatinine 1.53 H, Estim Creat Clear Calc 20.29, Est GFR (MDRD) Af Amer 41 L, Est GFR (MDRD) Non-Af 34 L, BUN/Creatinine Ratio 27.5 H, Glucose 97, Calcium 9.9, Phosphorus 4.2, Magnesium 1.8 05/21/22 13:15: POC Glucose 106 Radiography Diagnostic Testing: Radiology Impression Echocardiogram 05/20/22 01:46 Interpretation Summary Left ventricular systolic function is normal. The estimated ejection fraction is 60 %. Normal size and thickness. Moderate concentric left ventricular hypertrophy. Stage 2 diastolic dysfunction. Ordering Physician: Willy Booth Referring Physician: Martina Lal Performed By: Sandra Bruce, RDCS, RVT Physical Exam Narrative Alert awake oriented x 3 no obvious distress no pallor no icterus no JVD s1s2 no murmurs lungs clear abdomen soft no organomegaly no edema no cyanosis Assessment & Plan Assessment/Plan (1) Hypertensive urgency: PLAN: Admitted with hypertension, fluid overload. Echocardiogram reviewed. According to her blood pressure was fairly well controlled up until last few months. On review of her abdominal imaging from February, she has completely atrophic left kidney, no hydronephrosis on the right kidney. She was incidentally noted to have adrenal mass but at least on radiology reading it did not seem like adrenal adenoma. Not sure if this was a cyst in her previous left kidney. ordered adrenal incidentaloma work-up including renin, aldosterone, cortisol, metanephrines. Since she has atrophic left kidney and has uncontrolled hypertension, renal dopplers in september 2021 did not show any stenosis She is tolerating maximum dose of FREIDA inhibitor without significant changes in renal function, I doubt she will have critical renal artery stenosis (2) Stage 3a chronic kidney disease (CKD): PLAN: Creatinine has been around 1.2 for a long time. Currently at 1.4, likely related to hemodynamic changes. Urine analysis is not impressive. Likely creatinine fluctuations related to volume changes. change lasix to PO dw Dr Martinez
--- NOTE | 2022-05-21 14:56 | PCM.PN.HOSP ---
Subjective Subjective Follow-up for acute diastolic heart failure. Shortness of breath is better. Leg swelling has improved. Objective Data Objective Data Seen and examined In the morning and in afternoon. Interdisciplinary rounds. General: Alert, Oriented x3, Cooperative height 43.4 kg/m?, morbid obesity HEENT: Atraumatic, PERRLA, EOMI, Normocephalic Oral: No Gingival or Mucosal Lesions/ Ulcerations Neck: Supple, No JVD, Negative Carotid Bruits Lungs/chest: Right breast dressing is dry small Carol drain was pulled little. Dressing was changed.? Air entry diminished in bilateral lung bases.? No crepitation/rhonchi Cardiovascular: Regular rate, Regular Rhythm, Normal S1, Normal S2, No murmurs. Abdomen: Bowel Sounds Present, Soft, Non Tender, Non-Distended : No renal angle tenderness.? No suprapubic tenderness. Extremities: Mild ankle pitting edema, improved. Capillary Refill Less than 3 Seconds Skin: No rashes, No breakdown Musculoskeletal: No Tenderness to Palpation of Joints or Extremities ROM adequate. Neurological: Cranial nerves II-XII grossly intact, DTR? 2+/4 and Symmetrical, Neuro grossly intact Psych/Mental Status: Normal Affect, Appropriate. Vital Signs: Vital Signs Temp Pulse Resp BP Pulse Ox O2 Del Method O2 Flow Rate 97.8 F 57 L 18 132/37 H 96 Nasal Cannula 2 05/21/22 13:26 05/21/22 13:27 05/21/22 13:26 05/21/22 13:27 05/21/22 13:26 05/21/22 13:26 05/21/22 13:26 Oxygen Flow Rate (L/min) 2 Oxygen Delivery Method Nasal Cannula Weight: 229 lb 15.074 oz Body Mass Index (BMI) 44.0 Intake & Output: Intake and Output for Last 24 Hours 05/19/22 05/20/22 05/21/22 23:59 23:59 23:59 Intake Total 720 / 720 360 / 360 Output Total 2400 / 3400 1450 / 1450 Balance -1680 / -2680 -1090 / -1090 Lab / Micro Data Result Diagrams: 05/21/22 06:30 05/21/22 06:30 Labs: Laboratory Results - last 24 hr 05/20/22 18:26: POC Glucose 115 H 05/20/22 21:04: POC Glucose 102 05/21/22 06:29: POC Glucose 94 05/21/22 06:30: Cortisol 12.00 05/21/22 06:30: WBC 7.9, RBC 3.76 L, Hgb 11.3 L, Hct 33.4 L, MCV 88.8, MCH 30.1, MCHC 33.8, RDW Std Deviation 44.7 H, RDW Coeff of Pedro 13.8, Plt Count 308, MPV 9.6, Immature Gran % (Auto) 0.900, Neut % (Auto) 50.9, Lymph % (Auto) 30.9, [place] % (Auto) 12.3 H, Eos % (Auto) 3.9, Baso % (Auto) 1.1 H, Absolute Neuts (auto) 4.0, Absolute Lymphs (auto) 2.44, Nucleated RBC % 0 05/21/22 06:30: Sodium 135 L, Potassium 4.6, Chloride 101, Carbon Dioxide 29.0, Anion Gap 5, BUN 42 H, Creatinine 1.53 H, Estim Creat Clear Calc 20.29, Est GFR (MDRD) Af Amer 41 L, Est GFR (MDRD) Non-Af 34 L, BUN/Creatinine Ratio 27.5 H, Glucose 97, Calcium 9.9, Phosphorus 4.2, Magnesium 1.8 05/21/22 13:15: POC Glucose 106 Radiography Diagnostic Testing: Radiology Impression Echocardiogram 05/20/22 01:46 Interpretation Summary Left ventricular systolic function is normal. The estimated ejection fraction is 60 %. Normal size and thickness. Moderate concentric left ventricular hypertrophy. Stage 2 diastolic dysfunction. Ordering Physician: Willy Booth Referring Physician: Martina Lal Performed By: Sandra Bruce, HOANG, RVT Physical Exam Narrative Seen and examined. Patient leg swelling and shortness of breath is much improved. She still feels more short of breath on exertion. Feeling of generalized weakness General: Alert, Oriented x3, Cooperative height 43.6 kg/m?, morbid obesity HEENT: Atraumatic, PERRLA, EOMI, Normocephalic Oral: No Gingival or Mucosal Lesions/ Ulcerations Neck: Supple, No JVD, Negative Carotid Bruits Lungs/chest: Right breast dressing is mild soaked.? Small Dolliver drain.? Dressing was changed.? Air entry diminished in bilateral lung bases.? No crepitation/rhonchi Cardiovascular: Regular rate, Regular Rhythm, Normal S1, Normal S2, No murmurs Abdomen: Bowel Sounds Present, Soft, Non Tender, Non-Distended : No renal angle tenderness.? No suprapubic tenderness. Extremities: Mild ankle pitting edema, Capillary Refill Less than 3 Seconds Skin: No rashes, No breakdown Musculoskeletal: No Tenderness to Palpation of Joints or Extremities Neurological: Cranial nerves II-XII grossly intact, DTR? 2+/4 and Symmetrical, Neuro grossly intact Psych/Mental Status: Normal Affect, Appropriate. Assessment & Plan Assessment/Plan (1) CHF (congestive heart failure): (2) Hypertensive urgency: PLAN: Plan and small pleural effusion. 1. Heart failure exacerbation, exact etiology, type and classification unclear: Patient admitted to PCU. Continue Lasix 40 mg IV twice daily. Heart failure core measures including intake and output, fluid restriction less than 1500 mL, daily weight monitoring, kidney and electrolytes monitoring. 2D echo is ordered. BNP elevated. During previous admission, patient had VQ scan and PE was ruled out. Needs outpatient work-up for obesity hypoventilation syndrome/sleep apnea. Continue incentive spirometry. 05/21: Patient BP 132/37. Heart rate 57/min tolerated diuretic well. Due to increasing creatinine, Lasix IV titrated down to 40 mg once daily. During interdisciplinary rounds, the patient and her daughter requested for cardiology consult. Discussed with Dr. Cruz consult requested. 2. Hypertensive urgency/uncontrolled accelerated hypertension may be cause for pulmonary edema: During previous admission his hydralazine dose was increased 100 mg 3 times daily, metoprolol was changed to carvedilol 6.25 mg twice daily. Patient on clonidine 0.1 mg at night and lisinopril 20 mg twice daily. Blood pressure control is better. HCTZ on hold as patient is on Lasix. Amlodipine restarted as it was discontinued during last admission because of mild ankle edema. 05/21: Blood pressure is much better. 3. CKD stage IIIa: Heat Treating Operator was consulted at the request of patient and hypertensive urgency: On renal ultrasound, patient had atrophic left kidney but no hydronephrosis on right kidney. Incidentally noted adrenal mass. Work-up for retinal incidentaloma ordered by [facility]. Renal Doppler ordered but renal artery stenosis seems less likely as creatinine did go up on maximum dose of lisinopril. Mild fluctuation in creatinine from 1.2-1.4 probably due to hemodynamic fluid shift Acute kidney injury on CKD stage IIIa due to diuretic. Creatinine increased from 1.22-1.53, more than 0.39 for MALATHI. Diuretic dose decreased and changed to p.o. as mentioned above. Discussed with the [facility]. 4. Infected right upper quadrant breast and axillary region seroma/abscess: Patient had ultrasound-guided right breast partial mastectomy on April 30.? She developed postop seroma, started drainage on 05/08, fever and chills with worsening of right axillary and breast pain.? CT chest shows 8.4 cm seroma within the right axillary region and thick-walled 6.7 cm fluid collection with internal air bubbles surrounding fat stranding in the inferior lateral right breast area. 05/21: Drain was pulled. Dressing is dry. Last dose of Cipro completes on 05/24. The patient had open debridement and evacuation on 05/15/2022.? It was done by Dr. Michael Michel and followed by surgeon. Patient was treated with broad-spectrum antibiotic vancomycin and Zosyn and then discharged on ciprofloxacin as per ID recommendation. Wound care nurse consult. 5. Diabetes mellitus type 2: Continue with nateglinide. A1c 6.1 on 05/16. Continue Accu-Chek and coverage Humalog sliding scale. Glucose is well controlled 6. 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 Laboratory Results 05/20/22 18:26: POC Glucose 115 H 05/20/22 21:04: POC Glucose 102 05/21/22 06:29: POC Glucose 94 05/21/22 06:30: Renin Pending, Aldosterone Pending, Aldosterone/Renin Ratio Pending 05/21/22 06:30: Plas Tot Catecholamine Pending, Dopamine Pending, Epinephrine Pending, Norepinephrine Pending 05/21/22 06:30: Cortisol 12.00 05/21/22 06:30: WBC 7.9, RBC 3.76 L, Hgb 11.3 L, Hct 33.4 L, MCV 88.8, MCH 30.1, MCHC 33.8, RDW Std Deviation 44.7 H, RDW Coeff of Pedro 13.8, Plt Count 308, MPV 9.6, Immature Gran % (Auto) 0.900, Neut % (Auto) 50.9, Lymph % (Auto) 30.9, [place] % (Auto) 12.3 H, Eos % (Auto) 3.9, Baso % (Auto) 1.1 H, Absolute Neuts (auto) 4.0, Absolute Lymphs (auto) 2.44, Nucleated RBC % 0 05/21/22 06:30: Sodium 135 L, Potassium 4.6, Chloride 101, Carbon Dioxide 29.0, Anion Gap 5, BUN 42 H, Creatinine 1.53 H, Estim Creat Clear Calc 20.29, Est GFR (MDRD) Af Amer 41 L, Est GFR (MDRD) Non-Af 34 L, BUN/Creatinine Ratio 27.5 H, Glucose 97, Calcium 9.9, Phosphorus 4.2, Magnesium 1.8 05/21/22 13:15: POC Glucose 106 Clinical Impression(s) from Imaging Studies Chest X-Ray 05/19/22 22:58 IMPRESSION: Mild pulmonary edema and small pleural effusions, suggesting CHF. Charges/Coding Visit Charges Inpatient E&M: 02501 Subs Hosp L3
--- NOTE | 2022-05-21 15:16 | CASEMGMT ---
Pt states is feeling weaker but plan is still to go home with C and states would like [facility]. CM to touch base with pt/daughter tomorrow regarding same and need for home oxygen. This RN CM then spent about 30 minutes with daughter after ok from pt, answering questions as best as able. Daughter wants nurses notes/vitals from a day last week during previous visit and this RN CM advised her to contact medical records regarding same. CM to follow. SStcloleen ESCOBAR CM
[2022-05-21 17:26] LABS: Bedside Glucose 106 mg/dL (74-106)
--- NOTE | 2022-05-21 18:12 | PCM.CONS.C ---
Assessment & Plan Assessment/Plan (1) Hypertensive urgency: PLAN: The patient was reported as presenting with a hypertensive urgency with blood pressures in excess of 200 mmHg systolic. 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 It appears based upon review of patient's vital signs documented at [facility] she has had chronic elevation of her systolic blood pressures dating back to 2014. This may be the culprit for what appears to be concerns of a heart failure with preserved ejection fraction as well as her abnormal cardiac enzymes. At the moment it appears reasonable to continue to monitor the patient and adjust her medications with the support of nephrology to try and bring her blood pressure under better control. (2) CHF (congestive heart failure): PLAN: The patient has findings compatible with heart failure preserved ejection fraction/acute diastolic mediated CHF. Her noninvasive study does not suggest any systolic component to it. At the moment it appears reasonable to continue medical management in order to improve her respiratory status and O2 status. (3) Abnormal cardiac enzyme level: PLAN: To herThe patient does have mildly elevated abnormal troponin I levels. Again this may be hypertensive events and her acute diastolic mediated CHF. At the moment she does not describe symptoms compatible with an acute coronary syndrome and she does not have ECG changes compatible with an acute coronary syndrome. Thus would be reasonable to continue medical management. (4) Stage 3a chronic kidney disease (CKD): PLAN: The patient is being evaluated for her underlying renal insufficiency by nephrology. (5) HLD (hyperlipidemia): PLAN: The patient should continue medical management as deemed appropriate. (6) Breast cancer, right breast: PLAN: The patient has been undergoing evaluation care for breast carcinoma. This is included her surgical evaluation and care recently. Addt'l Comments At the present time it appears reasonable for the patient to continue to be monitored and continued medical management in order to improve her respiratory status/pulmonary status. This does include diuretic therapy. It does not appear that she wants and/or requires additional noninvasive or invasive cardiovascular evaluation at this time. The patient's case has been discussed and reviewed with the patient, the patient's daughter, and previously with Dr. Martinez. This note was generated using a voice recognition system and there may be incorrect words, spelling or punctuation that were not noted when reviewing the office note prior to saving. HPI Consult Data Date of Consult: 05/21/22 HPI Narrative HPI Narrative: DEBBIE KENNEY, is a 86 year old white female who presents for cardiovascular consultation based upon concerns of heart failure preserved ejection fraction CHF/diastolic mediated CHF superimposed upon a history of hyperlipidemia, hypertension, diabetes mellitus, carotid artery disease, and breast carcinoma status post recent right breast surgery with subsequent seroma/abscess status postevacuation on 05-15-2022 who presented for concerns of worsening shortness of breath/dyspnea and hypoxemia. The patient has been undergoing evaluation by multiple physicians for her multiple medical issues. From a cardiovascular standpoint she has undergone recent evaluation with a transthoracic echocardiogram on 05-20-2022. Per the report the left ventricle was normal with an LVEF of 60% with moderate concentric LVH and stage II diastolic dysfunction. There was mild MR and mild to moderate TR. A chest x-ray suggested mild pulmonary edema and small pleural effusions. Thus she has been treated medically with diuretic therapy. She has denied any ongoing chest discomfort other than discomfort associated with her right breast incisional site. There has been no report of any other forms of discomfort at this time. She has had her shortness of breath and dyspnea and according to her daughter who was present concerns of lower extremity edema which have improved since her hospitalization. There has been no near-syncope or syncope. As she has been treated medically her renal function has fluctuated. Her creatinine has varied somewhat. She has been evaluated by nephrology. It appears they were concerned that she had an hypertensive urgency as part of her initial presentation as well as having chronic renal disease-stage III. She is unaware of any other cardiovascular studies in the past other than potentially ECGs. With this admission she had a somewhat elevated troponin I level which is gradually decreased from 111-83. Her ECG demonstrated sinus rhythm. There were no acute ECG changes. Her other noninvasive studies are as noted. Of note, she states she is not going through additional cardiovascular studies/procedures at her age with her diagnosis. [facility] Medical History Ambulates with cane Arthritis Bilateral carotid artery stenosis Bilateral extracranial carotid artery stenosis Cancer Difficulty swallowing GERD (gastroesophageal reflux disease) History of edema History of IBS History of renal disease History of steroid therapy HTN (hypertension) Hyperlipidemia Leg cramps Non-smoker PONV (postoperative nausea and vomiting) Shortness of breath on exertion Sleep apnea Type 2 diabetes mellitus Wears glasses Wears hearing aid Home Medications ascorbic acid (vitamin C) 500 mg tablet 500 mg PO DAILY supplement 07/29/14 [History Last Taken 09/25/18] latanoprost 0.005 % eye drops (Xalatan) 1 drp EACH EYE QHS Cataracts/Dry eye 07/29/14 [History Last Taken 09/24/18] omega-3 fatty acids-fish oil 300 mg-1,000 mg capsule 1 ea PO DAILY SUPPLEMENT 07/29/14 [History Last Taken 09/25/18] nateglinide 60 mg tablet 60 mg PO TID BLOOD GLUCOSE 08/27/17 [History Last Taken 09/25/18 08:00] aspirin 81 mg chewable tablet 81 mg PO DAILY HEART HEALTH 06/26/18 [History Last Taken 09/24/18] Cardio [place] Healthy 1 cap PO DAILY SUPPLEMENT 05/22/20 [History Last Taken Unknown] lisinopril 20 mg tablet 20 mg PO BID HTN 11/09/21 [History Last Taken Unknown] artery cleanse 1 tab PO DAILY arteries 04/01/22 [History Last Taken Unknown] cholecalciferol (vitamin D3) 125 mcg (5,000 unit) capsule 125 mcg PO DAILY SUPPLEMENT 04/01/22 [History Last Taken Unknown] cinnamon bark 500 mg capsule (Cinnamon) 500 mg PO DAILY SUPPLEMENT 04/01/22 [History Last Taken Unknown] circu max gold 1 dose PO DAILY SUPPLEMENT 04/01/22 [History Last Taken Unknown] liver supplement 1 cap PO QHS SUPPLEMENT 04/01/22 [History Last Taken Unknown] silver 2 tsp PO DAILY SUPPLEMENT 04/01/22 [History Last Taken Unknown] clonidine HCl 0.1 mg tablet 0.1 mg PO QHS BP 05/15/22 [History Last Taken Unknown] acetaminophen 500 mg tablet 1,000 mg PO Q8 #0 tabs 05/18/22 [Rx Last Taken Unknown] carvedilol 6.25 mg tablet 6.25 mg PO BID #60 tabs 05/18/22 [Rx Last Taken Unknown] ciprofloxacin HCl 500 mg tablet 500 mg PO BID #14 tabs 05/18/22 [Rx Last Taken 05/19/22] hydralazine 50 mg tablet 100 mg PO TID #90 tabs 05/18/22 [Rx Last Taken 05/19/22] hydrochlorothiazide 12.5 mg tablet 12.5 mg PO DAILY #30 tabs 05/18/22 [Rx Last Taken Unknown] Allergy/AdvReac Type Severity Reaction Status Date / Time morphine AdvReac Intermediate mental Verified 05/20/22 01:46 status change meperidine HCl [From Demerol] AdvReac Mild mental Verified 05/20/22 01:46 status change Family History (Updated 05/20/22 @ 02:04 by Magdalena Morris) Brother Pancreatic cancer Diabetes Heart disease Lung cancer Hypertension Colon cancer Mother Hypertension Brother No problems noted. 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 housing: house Smoking Status: Never smoker alcohol intake: never substance use type: does not use what type of physical activity do you participate in: none seatbelt use: always do you feel safe at home: Yes ROS Constitutional Constitutional: Reports as per HPI Eyes Eyes: Reports as per HPI ENT HEENT: Reports as per HPI Cardiovascular Cardiovascular: Reports chest pain and dyspnea Respiratory/Chest Respiratory/Chest: Reports dyspnea Gastrointestinal Gastrointestinal: Reports as per HPI Genitourinary Genitourinary: Reports as per HPI Musculoskeletal Musculoskeletal: Reports as per HPI Integumentary Integumentary: Reports as per HPI Neurologic Neurologic: Reports as per HPI Psychiatric Psychiatric: Reports as per HPI Physical Exam Const alert, oriented x3 and no apparent distress Orientation / Consciousness: awake HEENT normocephalic, head/scalp atraumatic and hearing grossly normal bilaterally Eyes PERRL, EOMs intact bilaterally, conjunctivae normal and no scleral icterus Neck full ROM, supple and no JVD Carotids: normal carotid upstroke Resp Auscultation: diminished lung sounds bilateral lower Cardio regular rate, regular rhythm, S1 normal heart sound and S2 normal heart sound GI normal to inspection, nondistended, normoactive bowel sounds Extremity no pedal edema Skin no rashes or lesions noted Psych mental status grossly normal Risk Stratification Risk Stratification Applicable: Yes Age >/= 65: Yes >/= 3 CAD Risk Factors (HTN, HLD, DM, family hx of CAD, or current smoker): Yes Aspirin Use in the Past 7 Days: Yes Severe Angina (>/= episodes in 24 hours): No EKG ST Changes >/= 0.5mm: No Positive Cardiac Marker: Yes DEIRDRE Risk Stratification Score: 4 DEIRDRE % Risk: 20% Risk Procedure Criteria Type of Procedure Procedure Type: Elective Elective Risks - COVID COVID Risk Discussion: The surgeon/proceduralist and patient have discussed in detail the risk of exposure to and/or potential harm posed by the COVID-19 virus with having a surgery/procedure at this time versus the risk of delaying the surgery/procedure. It is not possible to know either the risk of delaying the surgery or procedure or chance of getting an infection with perfect accuracy, but a joint decision was made between the patient and the surgeon/proceduralist to proceed at this time with the scheduled surgery/procedure as indicated on the consent form. Objective Data Vital Signs: Vital Signs Temp Pulse Resp BP Pulse Ox O2 Del Method O2 Flow Rate 98.4 F 65 18 162/44 H 92 Nasal Cannula 2 05/21/22 16:55 05/21/22 16:55 05/21/22 16:55 05/21/22 16:55 05/21/22 16:55 05/21/22 16:55 05/21/22 16:55 Oxygen Flow Rate (L/min) 2 Oxygen Delivery Method Nasal Cannula Weight: 229 lb 15.074 oz Body Mass Index (BMI) 44.0 Intake & Output: Intake and Output for Last 24 Hours 05/19/22 05/20/22 05/21/22 23:59 23:59 23:59 Intake Total 720 / 720 600 / 600 Output Total 2400 / 3400 1450 / 1450 Balance -1680 / -2680 -850 / -850 Lab / Micro Data Result Diagrams: 05/21/22 06:30 05/21/22 06:30 Labs: Laboratory Results - last 24 hr 05/20/22 18:26: POC Glucose 115 H 05/20/22 21:04: POC Glucose 102 05/21/22 06:29: POC Glucose 94 05/21/22 06:30: Cortisol 12.00 05/21/22 06:30: WBC 7.9, RBC 3.76 L, Hgb 11.3 L, Hct 33.4 L, MCV 88.8, MCH 30.1, MCHC 33.8, RDW Std Deviation 44.7 H, RDW Coeff of Pedro 13.8, Plt Count 308, MPV 9.6, Immature Gran % (Auto) 0.900, Neut % (Auto) 50.9, Lymph % (Auto) 30.9, [place] % (Auto) 12.3 H, Eos % (Auto) 3.9, Baso % (Auto) 1.1 H, Absolute Neuts (auto) 4.0, Absolute Lymphs (auto) 2.44, Nucleated RBC % 0 05/21/22 06:30: Sodium 135 L, Potassium 4.6, Chloride 101, Carbon Dioxide 29.0, Anion Gap 5, BUN 42 H, Creatinine 1.53 H, Estim Creat Clear Calc 20.29, Est GFR (MDRD) Af Amer 41 L, Est GFR (MDRD) Non-Af 34 L, BUN/Creatinine Ratio 27.5 H, Glucose 97, Calcium 9.9, Phosphorus 4.2, Magnesium 1.8 05/21/22 13:15: POC Glucose 106 05/21/22 16:54: POC Glucose 106 Cardiology Labs/Tests 05/21/22 06:30: WBC 7.9, RBC 3.76 L, Hgb 11.3 L, Hct 33.4 L, MCV 88.8, MCH 30.1, MCHC 33.8, Plt Count 308, MPV 9.6, Immature Gran % (Auto) 0.900, Neut % (Auto) 50.9, Lymph % (Auto) 30.9, [place] % (Auto) 12.3 H, Eos % (Auto) 3.9, Baso % (Auto) 1.1 H, Absolute Neuts (auto) 4.0, Nucleated RBC % 0 05/21/22 06:30: Sodium 135 L, Potassium 4.6, Chloride 101, Carbon Dioxide 29.0, Anion Gap 5, BUN 42 H, Creatinine 1.53 H, Est GFR (MDRD) Af Amer 41 L, Est GFR (MDRD) Non-Af 34 L, BUN/Creatinine Ratio 27.5 H, Glucose 97, Calcium 9.9, Phosphorus 4.2, Magnesium 1.8 Rhythm: Sinus rhythm EKG: Sinus rhythm ECHO: As noted above
[2022-05-21] MEDS: Latanoprost 0.005% 1 Bottle 1 DRP EACH EYE (21:04)
[2022-05-21] MEDS: cloNIDine HCl 0.1 MG Tablet PO (21:06)
[2022-05-22] VITALS (18 sets, daily range): BP systolic 129–177; BP diastolic 30–54; PULSE 49–86; RESP 16–18; TEMP 36.2–37.2; O2SAT 92–95
[2022-05-22 05:31] LABS: Absolute Lymphocyte Count 2.89 X10^3/uL (0.83-4.51); Absolute Neutrophil Count 4.2 X10^3/uL (2.0-7.7); Basophil% 1.2 % (0-1); Eosinophil# 0.34 X10^3/uL; Eosinophils% 3.9 % (0-5); Hematocrit 32.1 % (37-47); Hemoglobin 10.9 g/dL (12.0-15.0); Lymphocyte # 2.89 X10^3/ul (0.83-4.51); Lymphocyte % 33.3 % (19-41); Mean Corpuscular Hgb 30.4 pg (27.0-32.0); Mean Corpuscular Volume 89.7 fL (81-99); Mean Platelet Vol. 9.9 fl (6.2-12.0); Monocyte# 1.06 X10^3/uL; Monocyte% 12.2 % (0-10); NRBC Flagged by Analyzer 0 % (0-5); Neutrophil # 4.19 X10^3/uL (2.7-7.7); Neutrophil % 48.2 % (47-70); Platelet Count 294 K/mm3 (150-450); RBC Distribution Width CV 13.9 % (11.6-14.6); RBC Distribution Width SD 45.3 fl (35.1-43.9); Red Blood Count 3.58 M/mm3 (4.2-5.4); White Blood Count 8.7 K/mm3 (4.4-11.0)
[2022-05-22 06:10] LABS: Anion Gap 5 (5-15); BUN 67 mg/dL (7-18); BUN/Creat Ratio 36.6 RATIO (10-20); Calcium,Total 9.5 mg/dL (8.5-10.1); Chloride 99 mmol/L (98-107); Creatinine, Serum 1.83 mg/dL (0.55-1.02); EST Glomerular Filtration Rate 28 mL/min (>60); Est Glom Filt Rate - Afr Amer 34 mL/min (>60); Estimated Creatinine Clearance 16.96 ml/min; Glucose 99 mg/dL (74-106); Potassium 4.7 mmol/L (3.5-5.1); Sodium Level 132 mmol/L (136-145)
[2022-05-22] MEDS: hydrALAZINE 50 MG Tablet 100 MG PO ×3 (06:47→23:11)
--- NOTE | 2022-05-22 07:35 | PN.CARD_ITS ---
Subjective Subjective The patient believes her breathing is somewhat improved. She states she felt like she was able to sleep better last night. Objective Data Vital Signs: Vital Signs Temp Pulse Resp BP Pulse Ox O2 Del Method O2 Flow Rate 97.6 F L 82 18 146/49 H 92 Nasal Cannula 1 05/22/22 04:00 05/22/22 06:47 05/22/22 04:00 05/22/22 06:47 05/22/22 04:00 05/22/22 04:00 05/22/22 04:00 Oxygen Flow Rate (L/min) 1 Oxygen Delivery Method Nasal Cannula Weight: 230 lb 13.184 oz Body Mass Index (BMI) 44.0 Intake & Output: Intake and Output for Last 24 Hours 05/20/22 05/21/22 05/22/22 23:59 23:59 23:59 Intake Total 720 / 720 600 / 600 Output Total 2400 / 3400 1450 / 1450 Balance -1680 / -2680 -850 / -850 Lab / Micro Data Result Diagrams: 05/22/22 04:34 05/22/22 04:34 Labs: Laboratory Results - last 24 hr 05/21/22 06:30: Cortisol 12.00 05/21/22 13:15: POC Glucose 106 05/21/22 16:54: POC Glucose 106 05/22/22 04:34: WBC 8.7, RBC 3.58 L, Hgb 10.9 L, Hct 32.1 L, MCV 89.7, MCH 30.4, MCHC 34.0, RDW Std Deviation 45.3 H, RDW Coeff of Pedro 13.9, Plt Count 294, MPV 9.9, Immature Gran % (Auto) 1.200 H, Neut % (Auto) 48.2, Lymph % (Auto) 33.3, Ashley % (Auto) 12.2 H, Eos % (Auto) 3.9, Baso % (Auto) 1.2 H, Absolute Neuts (auto) 4.2, Absolute Lymphs (auto) 2.89, Nucleated RBC % 0 05/22/22 04:34: Sodium 132 L, Potassium 4.7, Chloride 99, Carbon Dioxide 28.0, Anion Gap 5, BUN 67 H, Creatinine 1.83 H, Estim Creat Clear Calc 16.96, Est GFR (MDRD) Af Amer 34 L, Est GFR (MDRD) Non-Af 28 L, BUN/Creatinine Ratio 36.6 H, Glucose 99, Calcium 9.5 Cardiology Labs/Tests 05/22/22 04:34: WBC 8.7, RBC 3.58 L, Hgb 10.9 L, Hct 32.1 L, MCV 89.7, MCH 30.4, MCHC 34.0, Plt Count 294, MPV 9.9, Immature Gran % (Auto) 1.200 H, Neut % (Auto) 48.2, Lymph % (Auto) 33.3, Ashley % (Auto) 12.2 H, Eos % (Auto) 3.9, Baso % (Auto) 1.2 H, Absolute Neuts (auto) 4.2, Nucleated RBC % 0 05/22/22 04:34: Sodium 132 L, Potassium 4.7, Chloride 99, Carbon Dioxide 28.0, Anion Gap 5, BUN 67 H, Creatinine 1.83 H, Est GFR (MDRD) Af Amer 34 L, Est GFR (MDRD) Non-Af 28 L, BUN/Creatinine Ratio 36.6 H, Glucose 99, Calcium 9.5 Rhythm: Sinus rhythm/sinus bradycardia Physical Exam Const alert, oriented x3 and no apparent distress Orientation / Consciousness: awake HEENT normocephalic, head/scalp atraumatic and hearing grossly normal bilaterally Eyes PERRL, EOMs intact bilaterally, conjunctivae normal and no scleral icterus Neck full ROM, supple and no JVD Carotids: normal carotid upstroke Resp Auscultation: diminished lung sounds bilateral lower (Somewhat less prominent than yesterday) Cardio regular rate, regular rhythm, S1 normal heart sound and S2 normal heart sound GI normal to inspection, nondistended, normoactive bowel sounds Extremity no pedal edema Skin no rashes or lesions noted Psych mental status grossly normal Assessment & Plan Assessment/Plan (1) Hypertensive urgency: PLAN: The patient was reported as presenting with a hypertensive urgency with blood pressures in excess of 200 mmHg systolic. 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 It appears based upon review of patient's vital signs documented at [facility] she has had chronic elevation of her systolic blood pressures dating back to 2014. This may be the culprit for what appears to be concerns of a heart failure with preserved ejection fraction as well as her abnormal cardiac enzymes. At the moment it appears reasonable to continue to monitor the patient and adjust her medications with the support of nephrology to try and bring her blood pressure under better control. Of note caution does need to be given with respect to her antihypertensive combination taking into consideration her bradycardia (between beta-blockers and Catapres/clonidine) and her renal insufficiency. (2) CHF (congestive heart failure): PLAN: The patient has findings compatible with heart failure preserved ejection fraction/acute diastolic mediated CHF. Her noninvasive study does not suggest any systolic component to it. At the moment it appears reasonable to continue medical management in order to improve her respiratory status and O2 status. (3) Abnormal cardiac enzyme level: PLAN: To herThe patient does have mildly elevated abnormal troponin I levels. Again this may be hypertensive events and her acute diastolic mediated CHF. At the moment she does not describe symptoms compatible with an acute coronary syndrome and she does not have ECG changes compatible with an acute coronary syndrome. Thus would be reasonable to continue medical management. (4) Stage 3a chronic kidney disease (CKD): PLAN: The patient is being evaluated for her underlying renal insufficiency by nephrology. (5) HLD (hyperlipidemia): PLAN: The patient should continue medical management as deemed appropriate. (6) Breast cancer, right breast: PLAN: The patient has been undergoing evaluation care for breast carcinoma. This is included her surgical evaluation and care recently. Addt'l Comments The patient's case has been discussed and reviewed with the patient This note was generated using a voice recognition system and there may be incorrect words, spelling or punctuation that were not noted when reviewing the office note prior to saving. Procedure Criteria Type of Procedure Procedure Type: Elective Elective Risks - COVID COVID Risk Discussion: The surgeon/proceduralist and patient have discussed in detail the risk of exposure to and/or potential harm posed by the COVID-19 virus with having a surgery/procedure at this time versus the risk of delaying the surgery/procedure. It is not possible to know either the risk of delaying the surgery or procedure or chance of getting an infection with perfect accuracy, but a joint decision was made between the patient and the surgeon/proceduralist to proceed at this time with the scheduled surgery/procedure as indicated on the consent form.
--- NOTE | 2022-05-22 08:49 | PCM.PN.HOSP ---
Subjective Subjective Follow-up for acute HFpEF, acute kidney injury on chronic kidney disease. Patient creatinine went up. Patient stills feels very weak, shortness of breath on exertion. No fever. BP normal. Sinus rhythm Objective Data Objective Data Vital Signs: Vital Signs Temp Pulse Resp BP Pulse Ox O2 Del Method O2 Flow Rate 97.6 F L 82 18 146/49 H 94 Nasal Cannula 2 05/22/22 07:49 05/22/22 07:49 05/22/22 07:49 05/22/22 07:49 05/22/22 07:54 05/22/22 07:54 05/22/22 07:54 Oxygen Flow Rate (L/min) 2 Oxygen Delivery Method Nasal Cannula Weight: 230 lb 13.184 oz Body Mass Index (BMI) 44.0 Intake & Output: Intake and Output for Last 24 Hours 05/20/22 05/21/22 05/22/22 23:59 23:59 23:59 Intake Total 720 / 720 600 / 600 Output Total 2400 / 3400 1450 / 1450 Balance -1680 / -2680 -850 / -850 Lab / Micro Data Result Diagrams: 05/22/22 04:34 05/22/22 04:34 Labs: Laboratory Results - last 24 hr 05/21/22 13:15: POC Glucose 106 05/21/22 16:54: POC Glucose 106 05/22/22 04:34: WBC 8.7, RBC 3.58 L, Hgb 10.9 L, Hct 32.1 L, MCV 89.7, MCH 30.4, MCHC 34.0, RDW Std Deviation 45.3 H, RDW Coeff of Pedro 13.9, Plt Count 294, MPV 9.9, Immature Gran % (Auto) 1.200 H, Neut % (Auto) 48.2, Lymph % (Auto) 33.3, [place] % (Auto) 12.2 H, Eos % (Auto) 3.9, Baso % (Auto) 1.2 H, Absolute Neuts (auto) 4.2, Absolute Lymphs (auto) 2.89, Nucleated RBC % 0 05/22/22 04:34: Sodium 132 L, Potassium 4.7, Chloride 99, Carbon Dioxide 28.0, Anion Gap 5, BUN 67 H, Creatinine 1.83 H, Estim Creat Clear Calc 16.96, Est GFR (MDRD) Af Amer 34 L, Est GFR (MDRD) Non-Af 28 L, BUN/Creatinine Ratio 36.6 H, Glucose 99, Calcium 9.5 Physical Exam Narrative Seen and examined. Mild dyspnea on exertion. Feeling of generalized weakness General: Alert, Oriented x3, Cooperative height 43.6 kg/m?, morbid obesity HEENT: Atraumatic, PERRLA, EOMI, Normocephalic Oral: No Gingival or Mucosal Lesions/ Ulcerations Neck: Supple, No JVD, Negative Carotid Bruits Lungs/chest: Small Carol drain. Dressing was changed.? Air entry diminished in bilateral lung bases.? No crepitation/rhonchi Cardiovascular: Regular rate, Regular Rhythm, Normal S1, Normal S2, No murmurs Abdomen: Bowel Sounds Present, Soft, Non Tender, Non-Distended : No renal angle tenderness.? No suprapubic tenderness. Extremities: Ankle edema has resolved, Capillary Refill Less than 3 Seconds Skin: No rashes, No breakdown Musculoskeletal: No Tenderness to Palpation of Joints or Extremities Neurological: Cranial nerves II-XII grossly intact, DTR? 2+/4 and Symmetrical, Neuro grossly intact Psych/Mental Status: Normal Affect, Appropriate. Assessment & Plan Assessment/Plan (1) CHF (congestive heart failure): (2) Hypertensive urgency: PLAN: Plan and small pleural effusion. 1. Heart failure exacerbation, exact etiology, type and classification unclear: Patient admitted to PCU. Continue Lasix 40 mg IV twice daily. Heart failure core measures including intake and output, fluid restriction less than 1500 mL, daily weight monitoring, kidney and electrolytes monitoring. 2D echo is ordered. BNP elevated. During previous admission, patient had VQ scan and PE was ruled out. Needs outpatient work-up for obesity hypoventilation syndrome/sleep apnea. Continue incentive spirometry. 05/22: Patient creatinine jumped up to 1.83. Lasix on hold. Lisinopril decreased to 20 mg twice daily to once daily. Awaiting nephrology input. Cardiology consult requested by the patient and patient's daughter. 2. Hypertensive urgency/uncontrolled accelerated hypertension may be cause for pulmonary edema: During previous admission his hydralazine dose was increased 100 mg 3 times daily, metoprolol was changed to carvedilol 6.25 mg twice daily. Patient on clonidine 0.1 mg at night and lisinopril 20 mg twice daily. Blood pressure control is better. HCTZ on hold as patient is on Lasix. Amlodipine restarted as it was discontinued during last admission because of mild ankle edema. 3. Acute kidney injury on CKD stage IIIa: Equipment Washer was consulted at the request of patient and hypertensive urgency: On renal ultrasound, patient had atrophic left kidney but no hydronephrosis on right kidney. Incidentally noted adrenal mass. Work-up for retinal incidentaloma ordered by medical transcription supervisor. Renal Doppler ordered but renal artery stenosis seems less likely as creatinine did go up on maximum dose of lisinopril. Mild fluctuation in creatinine from 1.2-1.4 probably due to hemodynamic fluid shift 05/22: Patient had renal Doppler earlier therefore repeat nontolerant was canceled. Does not show significant renal artery stenosis. Creatinine jumped to 1.8 from baseline 1.2, therefore Lasix on hold admission 4. Infected right upper quadrant breast and axillary region seroma/abscess: Patient had ultrasound-guided right breast partial mastectomy on April 30.? She developed postop seroma, started drainage on 05/08, fever and chills with worsening of right axillary and breast pain.? CT chest shows 8.4 cm seroma within the right axillary region and thick-walled 6.7 cm fluid collection with internal air bubbles surrounding fat stranding in the inferior lateral right breast area. The patient had open debridement and evacuation on 05/15/2022.? It was done by Dr. Michael Michel and followed by surgeon. Patient was treated with broad-spectrum antibiotic vancomycin and Zosyn and then discharged on ciprofloxacin as per ID recommendation. Wound care nurse consult. 5. Diabetes mellitus type 2: Continue with nateglinide. A1c 6.1 on 05/16. Continue Accu-Chek and coverage Humalog sliding scale. 05/22: Glucose is well controlled. 6. 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 Total time of the visit including total time spent in counseling or coordination of care, (more than 50% of the total time, spent in obtaining medical information from nurses and other ancillary care providers,explaining to the patient about labs, imaging, diagnosis and management of active complex medical conditions), discussion with medical transcription supervisor, review of labs and imaging and overall clinical update and management plan given to patient's daughter is 40 minutes. Laboratory Results 05/21/22 13:15: POC Glucose 106 05/21/22 16:54: POC Glucose 106 05/22/22 04:34: WBC 8.7, RBC 3.58 L, Hgb 10.9 L, Hct 32.1 L, MCV 89.7, MCH 30.4, MCHC 34.0, RDW Std Deviation 45.3 H, RDW Coeff of Pedro 13.9, Plt Count 294, MPV 9.9, Immature Gran % (Auto) 1.200 H, Neut % (Auto) 48.2, Lymph % (Auto) 33.3, [place] % (Auto) 12.2 H, Eos % (Auto) 3.9, Baso % (Auto) 1.2 H, Absolute Neuts (auto) 4.2, Absolute Lymphs (auto) 2.89, Nucleated RBC % 0 05/22/22 04:34: Sodium 132 L, Potassium 4.7, Chloride 99, Carbon Dioxide 28.0, Anion Gap 5, BUN 67 H, Creatinine 1.83 H, Estim Creat Clear Calc 16.96, Est GFR (MDRD) Af Amer 34 L, Est GFR (MDRD) Non-Af 28 L, BUN/Creatinine Ratio 36.6 H, Glucose 99, Calcium 9.5 Clinical Impression(s) from Imaging Studies Chest X-Ray 05/19/22 22:58 IMPRESSION: Mild pulmonary edema and small pleural effusions, suggesting CHF. Charges/Coding Visit Charges Inpatient E&M: 06905 Subs Hosp L3
[2022-05-22] MEDS: Glucerna Shake 120 ML LIQUID PO ×3 (08:55→16:44)
[2022-05-22] MEDS: NATEGLINIDE 60 MG TABLET PO ×3 (08:57→16:44)
[2022-05-22] MEDS: Cholecalciferol (Vit D3) 125 MCG CAPSULE (5,000 UNITS) PO (08:58)
[2022-05-22] MEDS: Juven (unflavored) Packet 1 PACKET PO ×2 (08:58→16:45)
[2022-05-22] MEDS: Enoxaparin 30 MG/0.3 ML Syringe SC (08:58)
[2022-05-22] MEDS: amLODIPine 10 MG Tablet PO (08:59)
[2022-05-22] MEDS: Ascorbic Acid 500 MG Tablet PO ×2 (08:59→16:43)
[2022-05-22] MEDS: Omega-3 Acid Ethyl Esters 1 GM Capsule PO (08:59)
[2022-05-22] MEDS: Aspirin 81 MG TAB.CHEW PO (08:59)
[2022-05-22] MEDS: Sodium Chloride 0.65% 1 SPRAY SPRAY.BTL 2 SPRAY NASAL ×3 (09:06→23:13)
[2022-05-22] MEDS: Carvedilol 6.25 MG Tablet PO ×2 (09:07→16:43)
[2022-05-22] MEDS: Lisinopril 20 MG Tablet PO (09:07)
--- NOTE | 2022-05-22 09:56 | CASEMGMT ---
Addendum entered by Latonia Freedman 05/22/22 11:06: Call back from Delores at [facility] and she states they can accept pt with SOC 05/24/22. CM to follow therapy notes today. Pedro Pablo ESCOBAR CM Addendum entered by Latonia Freedman 05/22/22 10:51: This RN CM to room and pt states would like to go home with [facility] but is feeling weaker each day so is concerned with going home. Pt states if she needs to go somewhere then she would like to stay here at [facility]. Pt was provided a list of in-network SNF's previously by SW. Tito baltazar and pt placed on TCU list at this time. CM to follow. Pedro Pablo ESCOBAR CM Addendum entered by Latonia Freedman 05/22/22 10:13: Pt was provided a list of in-network [facility] providers prior to d/c on friday and daughter still has at bedside. Pt states would like [facility] at discharge. Order placed for SN, PT/OT and referral to Delores at [facility]. CM to follow. Pedro Pablo ESCOBAR CM Original Note: Per Dr. Martinez with increase in creatinine and will not d/c today. CM to follow. Pedro Pablo ESCOBAR CM
[2022-05-22 11:01] LABS: Bedside Glucose 103 mg/dL (74-106)
[2022-05-22 11:50] LABS: Bedside Glucose 124 mg/dL (74-106)
--- NOTE | 2022-05-22 16:26 | CHAPLAIN ---
Type of Pastoral Visit _x__ Initial Visit ___ Follow-up Visit ___ On-call Visit ___ General Patient Visit ___ Spiritual Assessment ___ Family Conference ___ Bereavement ___ Rapid Response ___ Code Blue ___ Other (describe below) Pastoral Care Referral From _x__ Patient ___ Family ___ Nurse ___ Physician ___ Real Estate Photographer ___ Electrical Transmission Engineer ___ Other (describe below) Sacrament/Intervention _x__ Active listening ___ Anointing ___ Worship ___ Bereavement ___ Communion ___ Elenita exploration ___ ___ Life review _x__ Prayer ___ Reconciliation ___ Sacrament of Sick ___ Supportive presence ___ Wedding ___ Other (describe below) Pastoral Comments introductions to patient and her daughter; offer of support, time to listen given but there were numerous interruptions during visit; daughter walked into the hallway with this fumigator and sterilizer and gave many details about health, care, anxiety, and family dynamics; a follow up visit will be attempted if time when pt is more alone
[2022-05-22] MEDS: Ciprofloxacin 500 MG Tablet PO (16:43)
[2022-05-22 17:00] LABS: Bedside Glucose 110 mg/dL (74-106)
[2022-05-22] MEDS: cloNIDine HCl 0.1 MG Tablet PO (23:12)
[2022-05-22] MEDS: Latanoprost 0.005% 1 Bottle 1 DRP EACH EYE (23:12)
[2022-05-23] VITALS (14 sets, daily range): BP systolic 142–170; BP diastolic 34–52; PULSE 56–69; RESP 16–20; TEMP 36.3–36.7; O2SAT 90–96
[2022-05-23 02:55] LABS: Bedside Glucose 85 mg/dL (74-106)
[2022-05-23] MEDS: hydrALAZINE 50 MG Tablet 100 MG PO ×2 (05:09→14:44)
[2022-05-23 06:55] LABS: Bedside Glucose 107 mg/dL (74-106)
--- NOTE | 2022-05-23 07:23 | WOUNDNOTE ---
The margot drain was advanced slightly per PADMINI Mir. there is no redness noted. sutures remain in place. new dry dressing applied with paper tape. pt tolerated well.
--- NOTE | 2022-05-23 08:24 | PCM.PN.CARD ---
Subjective Subjective The patient appears to be resting comfortably at this time with no new acute cardiac complaints. Objective Data Vital Signs: Vital Signs Temp Pulse Resp BP Pulse Ox O2 Del Method O2 Flow Rate 98 F 60 16 142/44 H 92 Room Air 1.5 05/23/22 04:50 05/23/22 07:00 05/23/22 04:50 05/23/22 05:09 05/23/22 04:50 05/23/22 04:50 05/23/22 00:47 Oxygen Flow Rate (L/min) 1.5 Oxygen Delivery Method Room Air Weight: 231 lb 4.238 oz Body Mass Index (BMI) 44.0 Intake & Output: Intake and Output for Last 24 Hours 05/21/22 05/22/22 05/23/22 23:59 23:59 23:59 Intake Total 600 / 600 600 / 600 Output Total 1450 / 1450 200 / 200 300 / 300 Balance -850 / -850 400 / 400 -300 / -300 Lab / Micro Data Result Diagrams: 05/22/22 04:34 05/22/22 04:34 Labs: Laboratory Results - last 24 hr 05/22/22 06:41: POC Glucose 103 05/22/22 11:26: POC Glucose 124 H 05/22/22 16:39: POC Glucose 110 H 05/22/22 23:02: POC Glucose 85 05/23/22 06:29: POC Glucose 107 H Cardiology Labs/Tests Rhythm: Sinus rhythm Physical Exam Const alert, oriented x3 and no apparent distress Orientation / Consciousness: awake HEENT normocephalic, head/scalp atraumatic and hearing grossly normal bilaterally Eyes PERRL, EOMs intact bilaterally, conjunctivae normal and no scleral icterus Neck full ROM, supple and no JVD Carotids: normal carotid upstroke Resp Auscultation: diminished lung sounds bilateral lower Cardio regular rate, regular rhythm, S1 normal heart sound and S2 normal heart sound GI normal to inspection, nondistended, normoactive bowel sounds Extremity no pedal edema Skin no rashes or lesions noted Psych mental status grossly normal Assessment & Plan Assessment/Plan (1) Hypertensive urgency: PLAN: The patient was reported as presenting with a hypertensive urgency with blood pressures in excess of 200 mmHg systolic. It appears based upon review of patient's vital signs documented at [facility] she has had chronic elevation of her systolic blood pressures dating back to 2014. This may be the culprit for what appears to be concerns of a heart failure with preserved ejection fraction as well as her abnormal cardiac enzymes. At the moment it appears reasonable to continue to monitor the patient and adjust her medications with the support of nephrology to try and bring her blood pressure under better control. Of note caution does need to be given with respect to her antihypertensive combination taking into consideration her bradycardia (between beta-blockers and Catapres/clonidine) and her renal insufficiency. (2) CHF (congestive heart failure): PLAN: The patient has findings compatible with heart failure preserved ejection fraction/acute diastolic mediated CHF. Her noninvasive study does not suggest any systolic component to it. At the moment it appears reasonable to continue medical management in order to improve her respiratory status and O2 status. This has included diuretic therapy which is being adjusted based upon the patient's clinical response and her renal function. (3) Abnormal cardiac enzyme level: PLAN: To herThe patient does have mildly elevated abnormal troponin I levels. Again this may be hypertensive events and her acute diastolic mediated CHF. At the moment she does not describe symptoms compatible with an acute coronary syndrome and she does not have ECG changes compatible with an acute coronary syndrome. Thus would be reasonable to continue medical management. (4) Stage 3a chronic kidney disease (CKD): PLAN: The patient is being evaluated for her underlying renal insufficiency by nephrology. (5) HLD (hyperlipidemia): PLAN: The patient should continue medical management as deemed appropriate. (6) Breast cancer, right breast: PLAN: The patient has been undergoing evaluation care for breast carcinoma. This is included her surgical evaluation and care recently. Addt'l Comments Overall, from a cardiac standpoint, the patient will continue conservative medical therapy with adjustment based upon her clinical response, her renal function, etc. This note was generated using a voice recognition system and there may be incorrect words, spelling or punctuation that were not noted when reviewing the office note prior to saving. Procedure Criteria Type of Procedure Procedure Type: Elective Elective Risks - COVID COVID Risk Discussion: The surgeon/proceduralist and patient have discussed in detail the risk of exposure to and/or potential harm posed by the COVID-19 virus with having a surgery/procedure at this time versus the risk of delaying the surgery/procedure. It is not possible to know either the risk of delaying the surgery or procedure or chance of getting an infection with perfect accuracy, but a joint decision was made between the patient and the surgeon/proceduralist to proceed at this time with the scheduled surgery/procedure as indicated on the consent form.
--- NOTE | 2022-05-23 08:29 | PCM.PN.BLA ---
Progress Note Patient is an 86 y/o s/p right breast lumpectomy for breast cancer complicated by cellulitis and infected seroma. Patient was returned to surgery on 05/15/22 for incision and evacuation of seroma by Dr. Michel. Patient had a margot drain placed. Patient was discharged and readmitted for CHF and hypertensive urgency. Patient has been having her drain advanced daily and dressing changed. Patient denies any concerns or complaints with the breast at this time. Physical Exam Chest Chest Narrative: Right breast- incision with midway opening and margot noted. Remaining sutures intact. No erythema noted. Minimal amount of serous fluid output. Margot drain advanced and dressing reapplied. Assessment & Plan Assessment/Plan (1) Cellulitis of breast: PLAN: Resolved. Patient has completed a 7 day course of antibiotics since being hospitalized. No further antibiotics are needed at this time. (2) Seroma, postoperative: PLAN: Patient will continue to have dressing changes daily after discharge. Patient will need to follow-up with our office on Friday or Friday to have the Margot drain removed and sutures removed Patient will need to contact our office to schedule a follow-up. Visit Charges Inpatient E&M: 33585 Init Hosp L1 (No charges; post-op)
[2022-05-23] MEDS: NATEGLINIDE 60 MG TABLET PO ×3 (08:56→16:54)
[2022-05-23] MEDS: Enoxaparin 30 MG/0.3 ML Syringe SC (08:56)
[2022-05-23] MEDS: amLODIPine 10 MG Tablet PO (08:57)
[2022-05-23] MEDS: Lisinopril 20 MG Tablet PO (08:57)
[2022-05-23] MEDS: Ascorbic Acid 500 MG Tablet PO (08:57)
[2022-05-23] MEDS: Glucerna Shake 120 ML LIQUID PO ×2 (08:57→12:12)
[2022-05-23] MEDS: Aspirin 81 MG TAB.CHEW PO (08:57)
[2022-05-23] MEDS: Carvedilol 6.25 MG Tablet PO (08:57)
[2022-05-23] MEDS: Juven (unflavored) Packet 1 PACKET PO (08:57)
[2022-05-23] MEDS: Omega-3 Acid Ethyl Esters 1 GM Capsule PO (08:57)
[2022-05-23] MEDS: Cholecalciferol (Vit D3) 125 MCG CAPSULE (5,000 UNITS) PO (08:57)
[2022-05-23] MEDS: Ciprofloxacin 500 MG Tablet PO (08:57)
--- NOTE | 2022-05-23 09:07 | PCM.DC ---
Discharge Instructions Follow Up Care Test Results: Test results from this visit will be discussed in further detail at your follow-up appointment, if applicable. Discharge Plan Admission Admit Date/Time: 05/20/22 01:40 Attending Provider: Meng Martinez Primary Care Provider: Martina Lal Consulting Providers: Willy Booth ; Dena Kwok ; Stew Cruz Discharge Orders/Prescriptions Prescriptions: No Action Cardio [place] Healthy 1 cap PO DAILY lisinopril 20 mg tablet 20 mg PO BID Label Comments: TAKE 1 TABLET BY MOUTH EVERY DAY cholecalciferol (vitamin D3) 125 mcg (5,000 unit) capsule 125 mcg PO DAILY artery cleanse 1 tab PO DAILY cinnamon bark [Cinnamon] 500 mg capsule 500 mg PO DAILY silver 2 tsp PO DAILY circu max gold 1 dose PO DAILY liver supplement 1 cap PO QHS latanoprost [Xalatan] 1 DROP bottle 1 drp EACH EYE QHS Label Comments: EYE HEALTH ascorbic acid (vitamin C) 500 MG tablet 500 mg PO DAILY Label Comments: suppliment omega-3 fatty acids-fish oil 1 EACH capsule 1 ea PO DAILY Label Comments: supplement aspirin 81 mg tablet,chewable 81 mg PO DAILY Label Comments: PT'S LAST DOSE OF ASPIRIN WILL BE 04/26/2022 nateglinide 60 MG tablet 60 mg PO TID Label Comments: diabetes Rx Instructions: Give before meals clonidine HCl 0.1 mg tablet 0.1 mg PO QHS ciprofloxacin HCl 500 mg Tablet 500 mg PO BID Qty: 14 0RF acetaminophen 500 mg Tablet 1,000 mg PO Q8 Qty: 0 0RF Rx Instructions: OTC TID for 5 days then prn as needed for pain hydralazine 50 mg Tablet 100 mg PO TID Qty: 90 0RF carvedilol 6.25 mg tablet 6.25 mg PO BID Qty: 60 1RF Rx Instructions: must administer with a meal/food hydrochlorothiazide 12.5 mg tablet 12.5 mg PO DAILY Qty: 30 0RF Referrals / Follow Up: Martina Lal DO [Primary Care Provider] -
--- NOTE | 2022-05-23 09:34 | CASEMGMT ---
RN BRIGID spoke with patient yesterday and patient was considering TCU. MARKOS met with patient and inquired if she has decided on what she would like to do at discharge. Patient said she would feel better if she went to [facility] TCU, but only if her insurance would cover it. MARKOS explained to patient that usually Medicare coverage is days 1-20 covered at 100% and days 21-100 there is a daily co-pay. MARKOS told patient SW will call her insurance and verify her benefits. MARKOS also let patient know that she will stay at [facility] until her insurance approves her for the TCU. MARKOS called patient's insurance and her long term facility benefits are: Days 1-20 covered a 100% and days 21-100 daily co-pay of $184. MARKOS wrote down this information for patient. SW went to patient's room and let her know her benefits for TCU. MARKOS also provided patient with a TCU pamphlet. SW reminded patient that she will stay here until her insurance approves her. Patient thanked MARKOS. Plan: d/c to [facility] TCU under skilled level of care pending insurance approval. Jackelin HARRIS
[2022-05-23 09:42] LABS: Anion Gap 7 (5-15); BUN 77 mg/dL (7-18); Calcium,Total 10.1 mg/dL (8.5-10.1); Chloride 101 mmol/L (98-107); Creatinine, Serum 1.88 mg/dL (0.55-1.02); EST Glomerular Filtration Rate 27 mL/min (>60); Est Glom Filt Rate - Afr Amer 33 mL/min (>60); Estimated Creatinine Clearance 16.51 ml/min; Glucose 120 mg/dL (74-106); Sodium Level 135 mmol/L (136-145)
--- NOTE | 2022-05-23 09:58 | PN.RENAL_ITS ---
Subjective Subjective Sitting in chair, denies any complaints. Objective Data Objective Data Vital Signs: Vital Signs Temp Pulse Resp BP Pulse Ox O2 Del Method O2 Flow Rate 98 F 60 16 142/44 H 91 Room Air 1.5 05/23/22 04:50 05/23/22 07:00 05/23/22 04:50 05/23/22 05:09 05/23/22 08:04 05/23/22 04:50 05/23/22 00:47 Oxygen Flow Rate (L/min) 1.5 Oxygen Delivery Method Room Air Weight: 104.9 kg Body Mass Index (BMI) 44.0 Intake & Output: Intake and Output for Last 24 Hours 05/21/22 05/22/22 05/23/22 23:59 23:59 23:59 Intake Total 600 / 600 600 / 600 Output Total 1450 / 1450 200 / 200 300 / 300 Balance -850 / -850 400 / 400 -300 / -300 Lab / Micro Data Result Diagrams: 05/22/22 04:34 05/23/22 09:23 Labs: Laboratory Results - last 24 hr 05/22/22 06:41: POC Glucose 103 05/22/22 11:26: POC Glucose 124 H 05/22/22 16:39: POC Glucose 110 H 05/22/22 23:02: POC Glucose 85 05/23/22 06:29: POC Glucose 107 H 05/23/22 09:23: Sodium 135 L, Potassium 5.0, Chloride 101, Carbon Dioxide 27.0, Anion Gap 7, BUN 77 H, Creatinine 1.88 H, Estim Creat Clear Calc 16.51, Est GFR (MDRD) Af Amer 33 L, Est GFR (MDRD) Non-Af 27 L, BUN/Creatinine Ratio 41.0 H, Glucose 120 H, Calcium 10.1 Physical Exam Narrative Alert awake oriented x 3 no obvious distress s1s2 no murmurs lungs clear. No wheezes, rhonchi or rales noted. On room air abdomen soft no pitting edema Assessment & Plan Assessment/Plan (1) Hypertensive urgency: PLAN: Admitted with hypertension (BP 214/50 on admission), fluid overload. Echocardiogram EF 60%, moderate LVH, stage 2 diastolic dysfunction On review of her abdominal imaging from February, she has completely atrophic left kidney, no hydronephrosis on the right kidney. She was incidentally noted to have adrenal mass but at least on radiology reading it did not seem like adrenal adenoma. Not sure if this was a cyst in her previous left kidney. ordered adrenal incidentaloma work-up ordered and pending: renin, aldosterone, metanephrines. Cortisol normal Since she has atrophic left kidney and has uncontrolled hypertension, renal doppler in september 2021 did not show any stenosis BPs improved, on Coreg, clonidine, hydralazine, amlodipine and lisinopril 20 mg She is tolerating FREIDA inhibitor without significant changes in renal function, doubt she will have critical renal artery stenosis (2) Stage 3a chronic kidney disease (CKD): PLAN: Baseline Creatinine has been around 1.2 for a long time. Nonoliguric. Creatinine 1.88mg/dL today, creatinine fluctuations likely related to hemodynamic and volume changes. She received furosemide IV for a few days, browne mic to p.o. Now off diuretic altogether. Last dose of furosemide 05/21. Home diuretic is hydrochlorothiazide 12.5 mg daily. We will hold off on diuretic today. Volume status looks good. On RA. PLAN: Plan Discharge plan in progress, possibly to TCU Discussed with Dr. Martinez
--- NOTE | 2022-05-23 10:52 | PCM.TXEXTCAR ---
Diet Diet Order/Speech Therapy: 05/21/22 09:43 Diet: Cardiac: Calorie-Controlled Food consistency:: Regular Liquid Consistency:: Regular/Thin Is pt able to select menu?: Yes How many daily calories?: 1800 calorie Routine Orders/Code Status Suppository Type: Dulcolax 10mg Suppository Frequency: Daily PRN Wound(s) Lateral Right Breast: Wound Type: surgical incision with margot drain Dressing Change: dry dressing Therapies Weight Bearing: Weight bearing as tolerated Extremity Affected:: Bilateral Lower Physical Therapy: Eval and Treat Occupational Therapy: Eval and Treat Speech Therapy: Eval and Treat Problem/Diagnosis (1) Hypertensive urgency: Status: Acute Code(s): I16.0 - Hypertensive urgency (2) Stage 3a chronic kidney disease (CKD): Status: Chronic Code(s): N18.31 - Chronic kidney disease, stage 3a Allergies/Procedures Done in Hospital Allergies morphine Adverse Reaction (Intermediate, Verified 05/20/22 01:46) mental status change meperidine HCl [From Demerol] Adverse Reaction (Mild, Verified 05/20/22 01:46) mental status change Type of Care/Length of Stay Estimated LOS: Convalescent Care Less Than 30 days Type of Care Needed: Skilled Rehab Potential: Good Prognosis: Good Additional Orders/Day of Discharge Day of Discharge: 05/23/22 Dietary and Speech Recommendations Dietitian Recommendations/Changes: Continue cardiac, 1800 calorie controlled diet. Continue 120mL Glucerna TID with medpass and Dino BID with medpass Discharge Plan Admission Admit Date/Time: 05/20/22 01:40 Primary Reason for Your Visit: Acute HFpEF, recent right breast infected seroma/abscess after lumpectomy Attending Provider: Meng Martinez Primary Care Provider: Martina Lal Consulting Providers: Willy Booth ; Dena Kwok ; Stew Cruz Instructions Additional Instructions / Restrictions: Furosemide on hold as patient had acute kidney injury and CKD. Nutritional Chemist Dr. Kwok following. Resume once creatinine on baseline, furosemide 40 mg p.o. daily. Discharge Orders/Prescriptions Prescriptions: New acetaminophen 500 mg Tablet 1,000 mg PO Q8H PRN PRN (Reason: Pain 1-10 Or Fever) Qty: 0 0RF amlodipine 10 mg Tablet 10 mg PO DAILY Qty: 0 0RF Rx Instructions: Hold for SBP less than 130 mmHg insulin lispro [Humalog KwikPen Insulin] 100 unit/mL Insulin Pen See Protocol subcut TIDAC Qty: 0 0RF Protocol: 3. Sliding Scale Insulin Med Dosing Condition: 150-189 mg/dl = 1 unit Condition: 190-229 mg/dl = 2 units Condition: 230-269 mg/dl = 3 units Condition: 270-309 mg/dl = 4 units Condition: 310-349 mg/dl = 5 units Condition: 350-399 mg/dl = 6 units Condition: 400-449 mg/dl = 7 units Condition: Greater than 449 call physician Protocol Text: - Use for Total Daily Dose of Insulin 37-55 units - Obsese, infected, or steroid patients MEDIUM DOSING ALGORITHIM Deep Sea Nasal 0.65 % Aerosol,[place] 2 spray NASAL TID PRN PRN (Reason: NASAL DRYNESS) Qty: 0 0RF Continued cholecalciferol (vitamin D3) 125 mcg (5,000 unit) capsule 125 mcg PO DAILY liver supplement 1 cap PO QHS latanoprost [Xalatan] 1 DROP bottle 1 drp EACH EYE QHS Label Comments: EYE HEALTH ascorbic acid (vitamin C) 500 MG tablet 500 mg PO DAILY Label Comments: suppliment omega-3 fatty acids-fish oil 1 EACH capsule 1 ea PO DAILY Label Comments: supplement aspirin 81 mg tablet,chewable 81 mg PO DAILY Label Comments: PT'S LAST DOSE OF ASPIRIN WILL BE 04/26/2022 nateglinide 60 MG tablet 60 mg PO TID Label Comments: diabetes Rx Instructions: Give before meals clonidine HCl 0.1 mg tablet 0.1 mg PO QHS carvedilol 6.25 mg tablet 6.25 mg PO BID Qty: 60 1RF Rx Instructions: must administer with a meal/food hydralazine 50 mg Tablet 100 mg PO TID Qty: 90 0RF Rx Instructions: Hold for SBP less than 130 mmHg Held lisinopril 20 mg tablet 20 mg PO BID Hold Instructions: Hold until serum creatinine on baseline. Label Comments: TAKE 1 TABLET BY MOUTH EVERY DAY Discontinued Cardio [place] Healthy 1 cap PO DAILY artery cleanse 1 tab PO DAILY cinnamon bark [Cinnamon] 500 mg capsule 500 mg PO DAILY silver 2 tsp PO DAILY circu max gold 1 dose PO DAILY ciprofloxacin HCl 500 mg Tablet 500 mg PO BID Qty: 14 0RF acetaminophen 500 mg Tablet 1,000 mg PO Q8 Qty: 0 0RF Rx Instructions: OTC TID for 5 days then prn as needed for pain hydrochlorothiazide 12.5 mg tablet 12.5 mg PO DAILY Qty: 30 0RF Hold Instructions: As patient has acute kidney injury Referrals / Follow Up: Dena Kwok MD [Med Staff - Consulting] - Within 1 Week (For acute kidney injury and CKD. Acute HFpEF) Martina Lal DO [Primary Care Provider] - Within 2 Weeks Stew Cruz MD [Med Staff - Active Staff] - Within 2 Weeks (Acute HFpEF.) Michael Michel MD [Med Staff - Active Staff] - (On 05/27/2022 for postop infected seroma of right breast.) Disposition Disposition (needs filled in before D/C Order can be placed[facility]
[2022-05-23 12:36] LABS: Bedside Glucose 124 mg/dL (74-106)
--- NOTE | 2022-05-23 12:57 | NURSING ---
Daughter of pt continues to approach staff in the middle taking care of other patients. Daughter comes up to nurses station multiple times to speak with charge account identification clerk and case management. This nurse had went into patient room several times this morning to update daughter and pt on plan of care, including giving meds and doing blood sugar and checking pulse ox. Daughter of pt kindly instructed to either wait in waiting area or pt bedroom as case management is in the middle of another case right now and can speak to them later. Daughter understands and walks to waiting area.
--- NOTE | 2022-05-23 14:46 | CASEMGMT ---
Blanche notified MARKOS that patient was approved. MARKOS notified physician, patient, corporate secretary, and RN. Jackelin Mcclain LABORER FILTER PLANT GLOBAL PROGRAM DIRECTOR
--- NOTE | 2022-05-23 15:14 | PCM.DC.SUM ---
Providers Date of Admission: 05/20/22 Date of Discharge: 05/23/22 Primary Care Physician: Dr. Martina Lal, Consultations 05/20/22 01:46 Consult: Onc/Wound/industrial education instructor Routine Comment: 05/20/22 14:14 Consult: Nephrology Routine Consulting Provider: Dena Kwok Reason for Consult: CKD G4, HF on diuretics EMERGENT Consult: No MD Notified: Yes Date Notified: 05/20/22 Time Notified: 14:14 Method of Notification: Verbal 05/21/22 14:27 Consult: Cardiology Routine Consulting Provider: Stew Cruz Reason for Consult: acute HFpEF EMERGENT Consult: No MD Notified: Yes Date Notified: 05/21/22 Time Notified: 14:27 Method of Notification: Verbal Reason For Visit: CHF Diagnosis Discharge Diagnosis (1) Hypertensive urgency: Status: Acute Code(s): I16.0 - Hypertensive urgency (2) Stage 3a chronic kidney disease (CKD): Status: Chronic Code(s): N18.31 - Chronic kidney disease, stage 3a Medications at Discharge Home Medications ascorbic acid (vitamin C) 500 mg tablet 500 mg PO DAILY supplement 07/29/14 latanoprost 0.005 % eye drops (Xalatan) 1 drp EACH EYE QHS Cataracts/Dry eye 07/29/14 omega-3 fatty acids-fish oil 300 mg-1,000 mg capsule 1 ea PO DAILY SUPPLEMENT 07/29/14 nateglinide 60 mg tablet 60 mg PO TID BLOOD GLUCOSE 08/27/17 aspirin 81 mg chewable tablet 81 mg PO DAILY HEART HEALTH 06/26/18 lisinopril 20 mg tablet 20 mg PO BID HTN 11/09/21 cholecalciferol (vitamin D3) 125 mcg (5,000 unit) capsule 125 mcg PO DAILY SUPPLEMENT 04/01/22 liver supplement 1 cap PO QHS SUPPLEMENT 04/01/22 clonidine HCl 0.1 mg tablet 0.1 mg PO QHS BP 05/15/22 carvedilol 6.25 mg tablet 6.25 mg PO BID #60 tabs 05/18/22 acetaminophen 500 mg tablet 1,000 mg PO Q8H PRN PRN Pain 1-10 Or Fever #0 tabs 05/23/22 amlodipine 10 mg tablet 10 mg PO DAILY #0 tabs 05/23/22 hydralazine 50 mg tablet 100 mg PO TID #90 tabs 05/23/22 insulin lispro 100 unit/mL subcutaneous pen (Humalog KwikPen (U-100) Insulin) See Protocol subcut TIDAC #0 mL 05/23/22 sodium chloride 0.65 % nasal spray aerosol ([place] Nasal) 2 spray NASAL TID PRN PRN NASAL DRYNESS #0 mL 05/23/22 Hospital Course Summary of Care Provided Hospital Course: This 86-year-old female who was admitted with shortness of breath, mild hypoxia leg swelling and chest x-ray showing pulmonary vascular congestion with small pleural effusions suggestive of heart failure exacerbation. Patient was just discharged from management for infected right upper quadrant seroma/abscess. and small pleural effusion. 1. Heart failure exacerbation, exact etiology, type and classification unclear: Patient admitted to PCU. Continue Lasix 40 mg IV twice daily. Heart failure core measures including intake and output, fluid restriction less than 1500 mL, daily weight monitoring, kidney and electrolytes monitoring. 2D echo is ordered. BNP elevated. During previous admission, patient had VQ scan and PE was ruled out. Needs outpatient work-up for obesity hypoventilation syndrome/sleep apnea. Continue incentive spirometry. 05/22: Patient creatinine jumped up to 1.83. Lasix on hold. Lisinopril decreased to 20 mg twice daily to once daily. Awaiting nephrology input. Cardiology consult requested by the patient and patient's daughter. 05/23: Patient creatinine 1.88 not big jump but plateaued. Keep holding Lasix. Lisinopril also held. In place, patient is on amlodipine and hydralazine. Patient can follow with preassembler printed circuit board, Dr. Cruz and louver door assembler, Dr Kwok in TCU to manage resumption of diuretic and kidney function back to baseline or creatinine clearance at least 30% more than her baseline. 2. Hypertensive urgency/uncontrolled accelerated hypertension may be cause for pulmonary edema: During previous admission his hydralazine dose was increased 100 mg 3 times daily, metoprolol was changed to carvedilol 6.25 mg twice daily. Patient on clonidine 0.1 mg at night and lisinopril 20 mg twice daily. Blood pressure control is better. HCTZ on hold as patient is on Lasix. Amlodipine restarted as it was discontinued during last admission because of mild ankle edema. 05/23: Blood pressure is controlled. HCTZ discontinued. Rest as mentioned above 3. Acute kidney injury on CKD stage IIIa: Director Cloud [employer] was consulted at the request of patient and hypertensive urgency: On renal ultrasound, patient had atrophic left kidney but no hydronephrosis on right kidney. Incidentally noted adrenal mass. Work-up for retinal incidentaloma ordered by louver door assembler. Renal Doppler ordered but renal artery stenosis seems less likely as creatinine did go up on maximum dose of lisinopril. Mild fluctuation in creatinine from 1.2-1.4 probably due to hemodynamic fluid shift 05/22: Patient had renal Doppler earlier therefore repeat nontolerant was canceled. Does not show significant renal artery stenosis. Creatinine jumped to 1.8 from baseline 1.2, therefore Lasix on hold admission 05/23: As mentioned above, continue holding Lasix. Lisinopril on hold. 4. Infected right upper quadrant breast and axillary region seroma/abscess: Patient had ultrasound-guided right breast partial mastectomy on April 30.? She developed postop seroma, started drainage on 05/08, fever and chills with worsening of right axillary and breast pain.? CT chest shows 8.4 cm seroma within the right axillary region and thick-walled 6.7 cm fluid collection with internal air bubbles surrounding fat stranding in the inferior lateral right breast area. The patient had open debridement and evacuation on 05/15/2022.? It was done by Dr. Michael Michel and followed by surgeon. Patient was treated with broad-spectrum antibiotic vancomycin and Zosyn and then discharged on ciprofloxacin as per ID recommendation. Wound care nurse consult. 05/23: Patient completed antibiotic course. Patient was seen by surgical PA and no more antibiotic needed. Follow-up with Dr. Michael Michel on 05/27/2022 5. Diabetes mellitus type 2: Continue with nateglinide. A1c 6.1 on 05/16. Continue Accu-Chek and coverage Humalog sliding scale. 05/22: Glucose is well controlled. /: Glucose is well controlled 6. Other multiple comorbidities noted includes Mobitz type I second degree heart block, invasive ductal breast carcinoma, ER/WA positive, glaucoma, bilateral carotid artery stenosis, obstructive sleep apnea/OHS: Outpatient work-up and follow-up. Discharge medication reconciliation done. Patient has multiple supplement including gold, silver, [place] and others which were discontinued. Discharge follow-up instructions completed. Discharge process discussed with the patient and all questions were answered to patient's satisfaction. Total time spent, exact 35 minutes on discharge meds reconciliation, examination, coordination of care with nurses and ancillary staff, review of imaging and blood test and discussion with the patient on follow-up instructions. Laboratory Results 05/22/22 16:39: POC Glucose 110 H 05/22/22 23:02: POC Glucose 85 05/23/22 06:29: POC Glucose 107 H 05/23/22 09:23: Sodium 135 L, Potassium 5.0, Chloride 101, Carbon Dioxide 27.0, Anion Gap 7, BUN 77 H, Creatinine 1.88 H, Estim Creat Clear Calc 16.51, Est GFR (MDRD) Af Amer 33 L, Est GFR (MDRD) Non-Af 27 L, BUN/Creatinine Ratio 41.0 H, Glucose 120 H, Calcium 10.1 05/23/22 12:11: POC Glucose 124 H Clinical Impression(s) from Imaging Studies Chest X-Ray 05/19/22 22:58 IMPRESSION: Mild pulmonary edema and small pleural effusions, suggesting CHF. Physical Exam Narrative Seen and examined on the day of discharge. No dyspnea. Feeling of generalized weakness and fatigue. Had PT in the morning General: Alert, Oriented x3, Cooperative height 43.6 kg/m?, morbid obesity HEENT: Atraumatic, PERRLA, EOMI, Normocephalic Oral: No Gingival or Mucosal Lesions/ Ulcerations Neck: Supple, No JVD, Negative Carotid Bruits Lungs/chest: Small [place] drain. Dressing was changed.? Air entry diminished in bilateral lung bases.? No crepitation/rhonchi Cardiovascular: Regular rate, Regular Rhythm, Normal S1, Normal S2, No murmurs Abdomen: Bowel Sounds Present, Soft, Non Tender, Non-Distended : No renal angle tenderness.? No suprapubic tenderness. Extremities: Ankle edema has resolved, Capillary Refill Less than 3 Seconds Skin: No rashes, No breakdown Musculoskeletal: No Tenderness to Palpation of Joints or Extremities Neurological: Cranial nerves II-XII grossly intact, DTR? 2+/4 and Symmetrical, Neuro grossly intact Psych/Mental Status: Normal Affect, Appropriate. Weight / BMI Weight Weight: 231 lb 4.238 oz Body Mass Index (BMI) 44.0 ABG / Lab / Microbiology Data Result Diagrams: 05/22/22 04:34 05/23/22 09:23 Laboratory: Laboratory Results - last 24 hr 05/22/22 16:39: POC Glucose 110 H 05/22/22 23:02: POC Glucose 85 05/23/22 06:29: POC Glucose 107 H 05/23/22 09:23: Sodium 135 L, Potassium 5.0, Chloride 101, Carbon Dioxide 27.0, Anion Gap 7, BUN 77 H, Creatinine 1.88 H, Estim Creat Clear Calc 16.51, Est GFR (MDRD) Af Amer 33 L, Est GFR (MDRD) Non-Af 27 L, BUN/Creatinine Ratio 41.0 H, Glucose 120 H, Calcium 10.1 05/23/22 12:11: POC Glucose 124 H Meaningful Use Info Meaningful Use Diagnoses (Choose all that apply): CHF AMI/Post PCI/Angioplasty Beta Yenny at discharge?: Yes Done w/ Acute MO measure.: Yes CHF FREIDA/ARB ordered at discharge?: No Reason FREIDA/ARB not ordered?: Worsening renal disease Documented LVEF (%): 55 Discharge Plan Admission Admit Date/Time: 05/20/22 01:40 Primary Reason for Your Visit: Acute HFpEF, recent right breast infected seroma/abscess after lumpectomy Attending Provider: Meng Martinez Primary Care Provider: Martina Lal Consulting Providers: Willy Booth ; Dena Kwok ; Stew Cruz Instructions Additional Instructions / Restrictions: Furosemide on hold as patient had acute kidney injury and CKD. Director Cloud Transformation Dr. Kwok following. Resume once creatinine on baseline, furosemide 40 mg p.o. daily. Discharge Orders/Prescriptions Prescriptions: New acetaminophen 500 mg Tablet 1,000 mg PO Q8H PRN PRN (Reason: Pain 1-10 Or Fever) Qty: 0 0RF amlodipine 10 mg Tablet 10 mg PO DAILY Qty: 0 0RF Rx Instructions: Hold for SBP less than 130 mmHg insulin lispro [Humalog KwikPen Insulin] 100 unit/mL Insulin Pen See Protocol subcut TIDAC Qty: 0 0RF Protocol: 3. Sliding Scale Insulin Med Dosing Condition: 150-189 mg/dl = 1 unit Condition: 190-229 mg/dl = 2 units Condition: 230-269 mg/dl = 3 units Condition: 270-309 mg/dl = 4 units Condition: 310-349 mg/dl = 5 units Condition: 350-399 mg/dl = 6 units Condition: 400-449 mg/dl = 7 units Condition: Greater than 449 call physician Protocol Text: - Use for Total Daily Dose of Insulin 37-55 units - Obsese, infected, or steroid patients MEDIUM DOSING ALGORITHIM Deep [place] Nasal 0.65 % Aerosol,[place] 2 spray NASAL TID PRN PRN (Reason: NASAL DRYNESS) Qty: 0 0RF Continued cholecalciferol (vitamin D3) 125 mcg (5,000 unit) capsule 125 mcg PO DAILY liver supplement 1 cap PO QHS latanoprost [Xalatan] 1 DROP bottle 1 drp EACH EYE QHS Label Comments: EYE HEALTH ascorbic acid (vitamin C) 500 MG tablet 500 mg PO DAILY Label Comments: suppliment omega-3 fatty acids-fish oil 1 EACH capsule 1 ea PO DAILY Label Comments: supplement aspirin 81 mg tablet,chewable 81 mg PO DAILY Label Comments: PT'S LAST DOSE OF ASPIRIN WILL BE 04/26/2022 nateglinide 60 MG tablet 60 mg PO TID Label Comments: diabetes Rx Instructions: Give before meals clonidine HCl 0.1 mg tablet 0.1 mg PO QHS carvedilol 6.25 mg tablet 6.25 mg PO BID Qty: 60 1RF Rx Instructions: must administer with a meal/food hydralazine 50 mg Tablet 100 mg PO TID Qty: 90 0RF Rx Instructions: Hold for SBP less than 130 mmHg Held lisinopril 20 mg tablet 20 mg PO BID Hold Instructions: Hold until serum creatinine on baseline. Label Comments: TAKE 1 TABLET BY MOUTH EVERY DAY Discontinued Cardio [place] Healthy 1 cap PO DAILY artery cleanse 1 tab PO DAILY cinnamon bark [Cinnamon] 500 mg capsule 500 mg PO DAILY silver 2 tsp PO DAILY circu max gold 1 dose PO DAILY ciprofloxacin HCl 500 mg Tablet 500 mg PO BID Qty: 14 0RF acetaminophen 500 mg Tablet 1,000 mg PO Q8 Qty: 0 0RF Rx Instructions: OTC TID for 5 days then prn as needed for pain hydrochlorothiazide 12.5 mg tablet 12.5 mg PO DAILY Qty: 30 0RF Hold Instructions: As patient has acute kidney injury Referrals / Follow Up: Dena Kwok MD [Med Staff - Consulting] - Within 1 Week (For acute kidney injury and CKD. Acute HFpEF) Martina Lal DO [Primary Care Provider] - Within 2 Weeks Stew Cruz MD [Med Staff - Active Staff] - Within 2 Weeks (Acute HFpEF.) Michael Michel MD [Med Staff - Active Staff] - (On 05/27/2022 for postop infected seroma of right breast.) Disposition Disposition (needs filled in before D/C Order can be placed): [facility] Charges/Coding Visit Charges Inpatient E&M: 42986 Disch Hosp
--- NOTE | 2022-05-23 15:26 | CASEMGMT ---
[facility] aware that pt now to go to TCU. SStcolleen ESCOBAR CM
--- NOTE | 2022-05-23 16:50 | NURSING ---
Report called to nurse Caballero in TCU as pt is getting transferred over there for further care. Will assume care of pt at this time
[2022-05-23 17:16] LABS: Bedside Glucose 140 mg/dL (74-106)
[2022-05-25 04:07] LABS: Aldosterone, Serum 1.4 ng/dL (0.0-30.0); Renin, Plasma 4.801 ng/mL/hr (0.167-5.380)
[2022-05-25 11:55] LABS: ALDOSTERONE/RENIN RATIO 0.3 (0.0-30.0)
== END 2022-05-23 17:06 | disposition skilled nursing facility (03) | DRG 291 ==
LOC: ED 05-20 00:47 → PCU 05-20 01:21
PROVIDERS: Internal Medicine Nephrology; Emergency Provider Emergency Medicine; PCP Internal Medicine; Visit Provider Internal Medicine
DX: I13.0 Hypertensive heart and chronic kidney disease with heart failure and stage 1 through stage 4 chronic kidney disease, or unspecified chronic kidney disease (principal); I50.31 Acute diastolic (congestive) heart failure; J90 Pleural effusion, not elsewhere classified; N17.9 Acute kidney failure, unspecified; Z68.41 Body mass index [BMI] 40.0-44.9, adult; E11.22 Type 2 diabetes mellitus with diabetic chronic kidney disease; N18.31 Chronic kidney disease, stage 3a; E27.9 Disorder of adrenal gland, unspecified; E66.01 Morbid (severe) obesity due to excess calories; I44.0 Atrioventricular block, first degree; I16.0 Hypertensive urgency; E78.5 Hyperlipidemia, unspecified; I34.0 Nonrheumatic mitral (valve) insufficiency; N61.1 Abscess of the breast and nipple; Z79.84 Long term (current) use of oral hypoglycemic drugs; Z79.82 Long term (current) use of aspirin; N26.1 Atrophy of kidney (terminal); Z80.1 Family history of malignant neoplasm of trachea, bronchus and lung; Z80.0 Family history of malignant neoplasm of digestive organs
CPT/HCPCS: 36415; 71045; 80048; 80061; 82088; 82384; 82533; 82962; 83735; 83880; 84100; 84244; 84484; 85025; 87426; 93005; 93306; 94640; 97110; 97162; 97166; 97530; 97535; 97802; 99285; A4216; J1940; J2405

== ENCOUNTER 2022-05-23 17:29 | Inpatient (IN) | payer MEDICARE, SELFPAY ==
[2022-05-23 17:57] VITALS: BP 161/75; PULSE 67; RESP 17; TEMP 36.4; O2SAT 92; BMI 43.7
[2022-05-23] MEDS: Carvedilol 6.25 MG Tablet PO (20:02)
[2022-05-23] MEDS: cloNIDine HCl 0.1 MG Tablet PO (20:03)
--- NOTE | 2022-05-23 20:05 | HP.PCM_ITS ---
HPI - General General Date of Admission: 05/23/22 Date of Service: 05/23/22 Chief Complaint: Here for rehab. HPI Narrative 05/19/2022 DEBBIE KENNEY, is a 86 Female who presents to [facility] Emergency Department with increasing shortness of breath. 05/19/2022 EKG normal sinus rhythm, normal EKG. Short of breath, elevated blood pressure, dypsnea on exertion, chills. Recent hospitalization for postoperative wound infection, VQ scan negative for hypoxia. Had left pleural effusion, hypoxia improved. Pulsox 80% at rest at home. Labetalol 20mg IV given for hypertensive urgency. Chest X-ray showed congestive heart failure. Furosemide 80mg IV given for congestive heart failure, BNP 296, oxygen 2 liters per nasal cannula. 05/20/2022 Admit to Hospital. Furosemide 40mg iv bid, Echo for congestive heart failure. Cipro for pseudomonas breast abscess. Hydralazine 100mg tid, Carvedilol 6.25mg twice daily, Clonidine 0.1mg qhs, Lisinopril 20mg bid, Amlodipine for hypertension. Consult Nephrology for hypertension, chronic kidney disease stage 3a. 05/21/2022 Shortness of breath better, leg swelling better. Furosemide 40mg iv daily for acute diastolic congestive heart failure. 05/22/2022 Creatinine 1.83, Feels very weak, dyspnea on exertion. Hold Furosemide, decrease Lisinopril to 20mg daily for acute on chronic kidney injury. 05/23/2022 Room Air. 05/23/2022 Admit to TCU with debility, here for rehabilitation, strengthening, prior to discharge home alone. [facility] Medical History Ambulates with cane Arthritis Bilateral carotid artery stenosis Bilateral extracranial carotid artery stenosis Breast abscess Cancer Difficulty swallowing GERD (gastroesophageal reflux disease) History of edema History of IBS History of renal disease History of steroid therapy HTN (hypertension) Hyperlipidemia Infected seroma, postoperative Leg cramps Non-smoker PONV (postoperative nausea and vomiting) Shortness of breath on exertion Sleep apnea Type 2 diabetes mellitus Wears glasses Wears hearing aid Home Medications ascorbic acid (vitamin C) 500 mg tablet 500 mg PO DAILY supplement 07/29/14 [History Last Taken 09/25/18] latanoprost 0.005 % eye drops (Xalatan) 1 drp EACH EYE QHS Cataracts/Dry eye 07/29/14 [History Last Taken 09/24/18] omega-3 fatty acids-fish oil 300 mg-1,000 mg capsule 1 ea PO DAILY SUPPLEMENT 07/29/14 [History Last Taken 09/25/18] nateglinide 60 mg tablet 60 mg PO TID BLOOD GLUCOSE 08/27/17 [History Last Taken 09/25/18 08:00] aspirin 81 mg chewable tablet 81 mg PO DAILY HEART HEALTH 06/26/18 [History Last Taken 09/24/18] lisinopril 20 mg tablet 20 mg PO BID HTN 11/09/21 [History Last Taken Unknown] cholecalciferol (vitamin D3) 125 mcg (5,000 unit) capsule 125 mcg PO DAILY SUPPLEMENT 04/01/22 [History Last Taken Unknown] liver supplement 1 cap PO QHS SUPPLEMENT 04/01/22 [History Last Taken Unknown] clonidine HCl 0.1 mg tablet 0.1 mg PO QHS BP 05/15/22 [History Last Taken Unknown] acetaminophen 500 mg tablet 1,000 mg PO Q8H PRN PRN Pain 1-10 Or Fever #0 tabs 05/23/22 [Rx Last Taken Unknown] amlodipine 10 mg tablet 10 mg PO DAILY BP 05/23/22 [History Last Taken Unknown] carvedilol 6.25 mg tablet 6.25 mg PO BID BP 05/23/22 [History Last Taken Unknown] hydralazine 50 mg tablet 100 mg PO TID BP 05/23/22 [History Last Taken Unknown] insulin lispro 100 unit/mL subcutaneous pen (Humalog KwikPen (U-100) Insulin) See Protocol subcut TIDAC Diabetes 05/23/22 [History Last Taken Unknown] sodium chloride 0.65 % nasal spray aerosol (Deep Sea Nasal) 2 spray NASAL TID PRN PRN NASAL DRYNESS #0 mL 05/23/22 [Rx Last Taken Unknown] Allergy/AdvReac Type Severity Reaction Status Date / Time morphine AdvReac Intermediate mental Verified 05/20/22 01:46 status change meperidine HCl [From Demerol] AdvReac Mild mental Verified 05/20/22 01:46 status change Family History Brother Pancreatic cancer Diabetes Heart disease Lung cancer Hypertension Colon cancer Mother Hypertension Brother No problems noted. 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 housing: house Smoking Status: Never smoker alcohol intake: never substance use type: does not use what type of physical activity do you participate in: none seatbelt use: always do you feel safe at home: Yes ROS Constitutional Constitutional: Reports fatigue and weakness; Denies chills, fever(s) or weight gain ENT HEENT: Denies headache(s), nasal congestion or nasal discharge Cardiovascular Cardiovascular: Reports edema; Denies chest pain or palpitations Respiratory/Chest Respiratory/Chest: Denies cough, excessive phlegm production or shortness of breath with exertion Gastrointestinal Gastrointestinal: Denies abdominal pain, nausea or vomiting Genitourinary Genitourinary: Denies dysuria Musculoskeletal Musculoskeletal: Denies joint pain or joint swelling Integumentary Integumentary: Denies rash or wounds Neurologic Neurologic: Denies focal weakness, numbness or tingling Psychiatric Psychiatric: Denies anxiety, auditory hallucinations, depression, homicidal ideation or suicidal ideation Vital Signs Vital Signs Vital Signs: 05/23/22 17:57 Temperature 97.6 F L Temperature Source Oral Pulse Rate 67 Respiratory Rate 17 Blood Pressure 161/75 H Blood Pressure Mean 103 Blood Pressure Source Monitor Blood Pressure Position Semi-Fowlers Blood Pressure Location Left Arm Pulse Ox 92 Oxygen Delivery Method Room Air Weight Weight: 104.9 kg Body Mass Index (BMI) 43.7 Physical Exam Const alert General Appearance: cooperative HEENT normocephalic Eyes PERRL and EOMs intact bilaterally Neck supple, no JVD and no carotid bruits Resp normal respiratory effort, normal air movement and clear to auscultation bilaterally Cardio regular rate and regular rhythm GI normal to inspection, nondistended, normoactive bowel sounds, non-tender and non-distended Extremity normal capillary refill General Extremity: edema bilateral Skin no rashes or lesions noted General Skin Exam: no breakdown Psych affect normal Appearance: appropriate Assessment & Plan Assessment/Plan (1) Debility: (2) Acute respiratory failure with hypoxia: (3) Acute diastolic congestive heart failure: (4) Acute kidney injury: (5) Chronic kidney disease, stage 3a: (6) Breast abscess: (7) Glaucoma: (8) Diabetes mellitus: (9) Hypertension: PLAN: Plan 86 year old female with below past medical history hospitalized for acute respiratory failure with hypoxia secondary to acute diastolic congestive heart failure, complicated by hypertensive urgency, acute on chronic kidney injury, admitted to TCU with debility, here for rehabilitation, strengthening, prior to discharge home alone. * Debility - PT/OT. * Pain - Tylenol 1000mg q6h prn pain (1-10). * Bowel - senna/colace 1 tablet bid, Dulcolax 10mg pr x 1 prn, MOM 30ml daily prn. * Adult immunization - Administer pneumonia vaccine, covid19 vaccine, flu vaccine as appropriate. * DVT prophylaxis - Hold, anemia. * Hypertension - Carvedilol 6.25mg bid, Clonidine 0.1mg qhs, Hydralazine 100mg tid, Amlodipine 10mg daily. * Vitamin C deficiency - Vitamin C 500mg daily. * CV prophylaxis - Aspirin 81mg daily.. * Nutrition - Glucerna Shake 120ml po tidcm. * Glaucoma - Latanoprost 1gtt ou qhs. * Diabetes Mellitus II - Starlix 60mg po tidcm. * Dry Nares - Sodium chloride 2 spray nasal tid prn. * Vitamin D deficiency - D3 125mcg daily.
[2022-05-23 20:07] VITALS: BP 183/55; PULSE 62
[2022-05-23 21:57] VITALS: PULSE 84; RESP 16
--- NOTE | 2022-05-23 22:30 | NURSING ---
Patient voiced wish to be DNRCC-A, no intubation. Patient signs code status form but states prefers to sign remaining admission paper work tomorrow so I can take my time and read through everything when my daughter comes in tomorrow with my clothes. Patient stated preference to sign code status paper at this time because it's my decision to make, not my daughter's decision.
[2022-05-23] MEDS: Latanoprost 0.005% 1 Bottle 1 DRP EACH EYE (22:32)
[2022-05-23 22:39] VITALS: BP 170/54; PULSE 62
[2022-05-23] MEDS: hydrALAZINE 50 MG Tablet 100 MG PO (22:39)
[2022-05-24] VITALS (7 sets, daily range): BP systolic 153–164; BP diastolic 50–65; PULSE 55–65; RESP 16–18; TEMP 36.2; O2SAT 93–94
[2022-05-24] MEDS: 0.9% Saline Lock 10 ML Syringe IV (04:50)
[2022-05-24] MEDS: Ascorbic Acid 500 MG Tablet PO (04:54)
[2022-05-24] MEDS: hydrALAZINE 50 MG Tablet 100 MG PO ×3 (04:54→22:01)
[2022-05-24] MEDS: Carvedilol 6.25 MG Tablet PO ×2 (04:54→18:02)
[2022-05-24] MEDS: Cholecalciferol (Vit D3) 125 MCG CAPSULE (5,000 UNITS) PO (04:55)
[2022-05-24 05:46] LABS: Absolute Lymphocyte Count 1.86 X10^3/uL (0.83-4.51); Absolute Neutrophil Count 3.7 X10^3/uL (2.0-7.7); Basophil# 0.08 X10^3/uL; Basophil% 1.1 % (0-1); Eosinophils% 5.7 % (0-5); Lymphocyte # 1.86 X10^3/ul (0.83-4.51); Lymphocyte % 26.3 % (19-41); Mean Corp Hgb Conc 34.4 g/dL (32-36); Mean Corpuscular Hgb 30.2 pg (27.0-32.0); Mean Corpuscular Volume 87.9 fL (81-99); Mean Platelet Vol. 9.7 fl (6.2-12.0); Monocyte# 0.93 X10^3/uL; Monocyte% 13.2 % (0-10); NRBC Flagged by Analyzer 0 % (0-5); Neutrophil # 3.74 X10^3/uL (2.7-7.7); Platelet Count 286 K/mm3 (150-450); RBC Distribution Width CV 13.9 % (11.6-14.6); Red Blood Count 3.64 M/mm3 (4.2-5.4); White Blood Count 7.1 K/mm3 (4.4-11.0)
[2022-05-24 06:26] LABS: Anion Gap 5 (5-15); BUN 72 mg/dL (7-18); BUN/Creat Ratio 43.6 RATIO (10-20); Calcium,Total 9.8 mg/dL (8.5-10.1); Chloride 102 mmol/L (98-107); Creatinine, Serum 1.65 mg/dL (0.55-1.02); EST Glomerular Filtration Rate 31 mL/min (>60); Est Glom Filt Rate - Afr Amer 38 mL/min (>60); Estimated Creatinine Clearance 18.81 ml/min; Glucose 123 mg/dL (74-106); Potassium 4.4 mmol/L (3.5-5.1); Sodium Level 134 mmol/L (136-145)
[2022-05-24] MEDS: NATEGLINIDE 60 MG TABLET PO ×3 (08:21→18:01)
[2022-05-24] MEDS: Aspirin 81 MG TAB.CHEW PO (08:22)
--- NOTE | 2022-05-24 08:22 | WOUNDNOTE ---
wound photo: right lateral breast
[2022-05-24] MEDS: Glucerna Shake 120 ML LIQUID PO ×3 (08:32→18:01)
[2022-05-24] MEDS: amLODIPine 10 MG Tablet PO (08:32)
[2022-05-24] MEDS: Ascorbic Acid 500 MG Tablet 1500 MG PO (09:49)
[2022-05-24] MEDS: Tuberculin,Purif.prot.deriv. 50 TU/ML Vial 0.1 ML ID (10:06)
[2022-05-24] MEDS: Cholecalciferol (Vit D3) 125 MCG CAPSULE (5,000 UNITS) 250 MCG PO (14:29)
--- NOTE | 2022-05-24 15:22 | CHAPLAIN ---
Type of Pastoral Visit _x__ Initial Visit ___ Follow-up Visit ___ On-call Visit ___ General Patient Visit ___ Spiritual Assessment ___ Family Conference ___ Bereavement ___ Rapid Response ___ Code Blue ___ Other (describe below) Pastoral Care Referral From _x__ Patient ___ Family ___ Nurse ___ Physician ___ Cooler Man ___ Appeals Court Associate Justice ___ Other (describe below) Sacrament/Intervention _x__ Active listening ___ Anointing ___ Voodoo ___ Bereavement ___ Communion _x__ Elenita exploration ___ _x__ Life review _x__ Prayer ___ Reconciliation ___ Sacrament of Sick _x__ Supportive presence ___ Wedding ___ Other (describe below) Pastoral Comments Patient immediately is welcoming and expresses thankfulness to talk to the director of brand marketing; pt states that she is feeling better now and that before I just wanted to go to replaced by [facility]; pt states that everyone is so nice to me here; pt has large family and speaks of that and her concerns for grandchildren and great grandchildren in this crazy world we live in now; pt relies on her elenita in God and speaks of it throughout the visit; prayer and presence welcomed
[2022-05-24] MEDS: Latanoprost 0.005% 1 Bottle 1 DRP EACH EYE (22:00)
[2022-05-24] MEDS: cloNIDine HCl 0.1 MG Tablet PO (22:01)
[2022-05-24] MEDS: MELATONIN 3 MG TABLET PO (22:01)
[2022-05-25] MEDS: Cholecalciferol (Vit D3) 125 MCG CAPSULE (5,000 UNITS) 250 MCG PO (05:29)
[2022-05-25] MEDS: Ascorbic Acid 500 MG Tablet 1500 MG PO (05:29)
[2022-05-25] MEDS: Carvedilol 6.25 MG Tablet PO ×2 (05:31→17:32)
[2022-05-25 05:32] VITALS: BP 119/48; PULSE 61
[2022-05-25] MEDS: Nystatin Powder 15gm Bottle 1 APPLIC TOPICAL ×2 (05:33→17:32)
[2022-05-25 06:31] LABS: Bedside Glucose 115 mg/dL (74-106)
[2022-05-25] MEDS: amLODIPine 10 MG Tablet PO (08:13)
[2022-05-25] MEDS: Aspirin 81 MG TAB.CHEW PO (08:13)
[2022-05-25] MEDS: NATEGLINIDE 60 MG TABLET PO ×3 (08:13→17:32)
[2022-05-25 08:14] VITALS: BP 168/52; PULSE 54
[2022-05-25] MEDS: Glucerna Shake 120 ML LIQUID PO ×3 (08:16→17:32)
[2022-05-25 15:02] VITALS: BP 154/55; PULSE 65
[2022-05-25] MEDS: hydrALAZINE 50 MG Tablet 100 MG PO ×2 (15:02→22:33)
[2022-05-25] MEDS: Acetaminophen 500 MG Tablet 1000 MG PO (15:04)
[2022-05-25 15:19] VITALS: BP 154/55; PULSE 65; RESP 18; TEMP 36.8; O2SAT 97
[2022-05-25] MEDS: Senna/Docusate Sodium 1 Tablet PO (17:32)
[2022-05-25 20:00] VITALS: RESP 14; O2SAT 94
[2022-05-25] MEDS: Latanoprost 0.005% 1 Bottle 1 DRP EACH EYE (22:32)
[2022-05-25 22:33] VITALS: BP 161/48; PULSE 61
[2022-05-25] MEDS: MELATONIN 3 MG TABLET PO (22:35)
[2022-05-25] MEDS: cloNIDine HCl 0.1 MG Tablet PO (22:35)
[2022-05-26] MEDS: Acetaminophen 500 MG Tablet 1000 MG PO ×2 (03:42→22:07)
[2022-05-26] MEDS: Nystatin Powder 15gm Bottle 1 APPLIC TOPICAL ×2 (05:36→16:32)
[2022-05-26 05:38] VITALS: BP 126/54; PULSE 51
[2022-05-26] MEDS: Cholecalciferol (Vit D3) 125 MCG CAPSULE (5,000 UNITS) 250 MCG PO (05:39)
[2022-05-26] MEDS: Senna/Docusate Sodium 1 Tablet PO (05:40)
[2022-05-26] MEDS: Ascorbic Acid 500 MG Tablet 1500 MG PO (05:40)
[2022-05-26] MEDS: Carvedilol 6.25 MG Tablet PO ×2 (05:40→16:31)
[2022-05-26 06:40] LABS: Bedside Glucose 111 mg/dL (74-106)
[2022-05-26] MEDS: Aspirin 81 MG TAB.CHEW PO (09:28)
[2022-05-26] MEDS: NATEGLINIDE 60 MG TABLET PO ×3 (09:29→16:30)
[2022-05-26 09:30] VITALS: BP 125/42; PULSE 55
[2022-05-26] MEDS: Glucerna Shake 120 ML LIQUID PO ×3 (09:32→16:36)
[2022-05-26 11:56] VITALS: BP 152/51; PULSE 57
[2022-05-26] MEDS: hydrALAZINE 50 MG Tablet 100 MG PO ×2 (11:56→22:08)
[2022-05-26 15:05] VITALS: BP 152/50; PULSE 64; RESP 18; TEMP 36.4; O2SAT 94
[2022-05-26 22:08] VITALS: BP 144/64; PULSE 55
[2022-05-26] MEDS: cloNIDine HCl 0.1 MG Tablet PO (22:09)
[2022-05-26] MEDS: MELATONIN 3 MG TABLET PO (22:09)
[2022-05-26] MEDS: Latanoprost 0.005% 1 Bottle 1 DRP EACH EYE (22:09)
[2022-05-27] MEDS: Acetaminophen 500 MG Tablet 1000 MG PO ×2 (05:38→21:13)
[2022-05-27 05:39] VITALS: BP 130/55; PULSE 61
[2022-05-27] MEDS: hydrALAZINE 50 MG Tablet 100 MG PO ×2 (05:39→21:13)
[2022-05-27] MEDS: Senna/Docusate Sodium 1 Tablet PO ×2 (05:42→18:04)
[2022-05-27] MEDS: Cholecalciferol (Vit D3) 125 MCG CAPSULE (5,000 UNITS) 250 MCG PO (05:42)
[2022-05-27] MEDS: Carvedilol 6.25 MG Tablet PO ×2 (05:42→18:04)
[2022-05-27 06:30] LABS: Bedside Glucose 103 mg/dL (74-106)
[2022-05-27] MEDS: Ascorbic Acid 500 MG Tablet 1500 MG PO (06:49)
[2022-05-27] MEDS: amLODIPine 10 MG Tablet PO (07:57)
[2022-05-27] MEDS: NATEGLINIDE 60 MG TABLET PO ×3 (07:57→18:03)
[2022-05-27] MEDS: Aspirin 81 MG TAB.CHEW PO (07:57)
[2022-05-27] MEDS: Glucerna Shake 120 ML LIQUID PO ×3 (07:59→18:05)
--- NOTE | 2022-05-27 09:56 | PCM.PN.BLA ---
Progress Note Patient evaluated resting comfortably in the chair. Patient was evaluated with Madelin. All sutures were removed. Carol drain was removed entirely. Area was cleansed with saline. Cavity tunneled approximately 4 cm directly superior towards the shoulder. Nu gauze was placed followed by gauze dressing. Patient tolerated the procedure well. I will follow-up with the patient later this week, Friday or . I will continue to provide updates to Dr. Michel. Visit Charges Inpatient E&M: 87[address] [facility] L1 (No charge; post-op)
--- NOTE | 2022-05-27 10:04 | WOUNDNOTE ---
wound photo: right breast
--- NOTE | 2022-05-27 10:31 | NURSING ---
Gen surgery consult placed to schedule f/u for patient. PADMINI Monsivais in to see patient this AM, dressing changed and new wound care orders in place. Per PA she will update Dr. Michel, no followup appointment needed for now as she'll follow patient on TCU.
[2022-05-27] MEDS: Juven (unflavored) Packet 1 PACKET PO ×2 (10:56→18:03)
[2022-05-27] MEDS: Nystatin Powder 15gm Bottle 1 APPLIC TOPICAL ×2 (10:58→21:18)
--- NOTE | 2022-05-27 12:51 | NURSING ---
Called and spoke with staff at Dr. Kwok's office for Nephro consult, per staff he saw pt on 05/20 but will not follow on TCU. Updated patient, will wait to discuss with daughter about getting visit scheduled.
[2022-05-27 13:25] VITALS: BP 122/55; PULSE 57; RESP 16; TEMP 36.3; O2SAT 92
--- NOTE | 2022-05-27 14:12 | NURSING ---
Outer Diameter Grinder Note; Activity Asset Complete
[2022-05-27 18:02] VITALS: BP 167/44; PULSE 60
[2022-05-27 21:00] VITALS: PULSE 60; RESP 16; O2SAT 92
[2022-05-27 21:13] VITALS: BP 162/37; PULSE 60
[2022-05-27] MEDS: Latanoprost 0.005% 1 Bottle 1 DRP EACH EYE (21:13)
[2022-05-27] MEDS: cloNIDine HCl 0.1 MG Tablet PO (21:13)
[2022-05-27] MEDS: MELATONIN 3 MG TABLET PO (21:14)
[2022-05-28 06:29] VITALS: BP 156/44; PULSE 51
[2022-05-28] MEDS: Senna/Docusate Sodium 1 Tablet PO ×2 (06:29→18:00)
[2022-05-28] MEDS: Cholecalciferol (Vit D3) 125 MCG CAPSULE (5,000 UNITS) 250 MCG PO (06:29)
[2022-05-28] MEDS: Ascorbic Acid 500 MG Tablet 1500 MG PO (06:29)
[2022-05-28] MEDS: Carvedilol 6.25 MG Tablet PO ×2 (06:29→18:41)
[2022-05-28] MEDS: hydrALAZINE 50 MG Tablet 100 MG PO ×3 (06:29→22:03)
[2022-05-28 06:35] LABS: Bedside Glucose 135 mg/dL (74-106)
[2022-05-28] MEDS: amLODIPine 10 MG Tablet PO (08:04)
[2022-05-28] MEDS: Juven (unflavored) Packet 1 PACKET PO ×2 (08:04→17:59)
[2022-05-28] MEDS: NATEGLINIDE 60 MG TABLET PO ×3 (08:04→18:00)
[2022-05-28] MEDS: Aspirin 81 MG TAB.CHEW PO (08:04)
[2022-05-28] MEDS: Glucerna Shake 120 ML LIQUID PO ×3 (08:04→17:59)
[2022-05-28 08:08] VITALS: BP 155/47; PULSE 53
[2022-05-28 11:36] VITALS: PULSE 55; O2SAT 93
[2022-05-28] MEDS: Nystatin Powder 15gm Bottle 1 APPLIC TOPICAL ×2 (12:44→22:08)
[2022-05-28 14:26] VITALS: BP 148/44; PULSE 55
[2022-05-28 14:29] VITALS: BP 148/44; PULSE 56; RESP 20; TEMP 36.6; O2SAT 93
--- NOTE | 2022-05-28 14:36 | PHA.CONS_ITS ---
TCU RX Drug Regimen Review Subjective: [] TCU ADMISSION Objective: Allergies morphine Adverse Reaction (Intermediate, Verified 05/20/22 01:46) mental status change meperidine HCl [From Demerol] Adverse Reaction (Mild, Verified 05/20/22 01:46) mental status change Current Medications Generic Name Dose Route Start Last Admin Trade Name Freq PRN Reason Stop Dose Admin Acetaminophen 1,000 mg 05/27/22 07:50 Acetaminophen 500 Mg Tablet PO Q6H PRN PRN Pain Score 1-5 Acetaminophen 1,000 mg 05/27/22 22:00 05/27/22 21:13 Acetaminophen 500 Mg Tablet PO 1,000 mg QHS JORDEN Administration Amlodipine Besylate 10 mg 05/24/22 08:00 05/28/22 08:04 Amlodipine 10 Mg Tablet PO 10 mg DAILY@0800 [facility] Administration Ascorbic Acid 1,500 mg 05/24/22 08:00 05/28/22 06:29 Ascorbic Acid 500 Mg Tablet PO 1,500 mg DAILY JORDEN Administration Aspirin 81 mg 05/24/22 08:00 05/28/22 08:04 Aspirin 81 Mg Tab.Chew PO 81 mg DAILY@0800 [facility] Administration Bisacodyl 10 mg 05/23/22 18:14 Bisacodyl 10 Mg Suppository RC X1 PRN Constipation Carvedilol 6.25 mg 05/23/22 18:00 05/28/22 06:29 Carvedilol 6.25 Mg Tablet PO 6.25 mg BID JORDEN Administration Cholecalciferol 250 mcg 05/24/22 08:00 05/28/22 06:29 Cholecalciferol (Vit D3) 125 Mcg Capsule (5,000 Units) PO 250 mcg DAILY JORDEN Administration Hydralazine HCl 100 mg 05/23/22 22:00 05/28/22 14:26 Hydralazine 50 Mg Tablet PO 100 mg TID JORDEN Administration L-Arginine/L-Glutamine/Calcium HMB 1 packet 05/27/22 08:00 05/28/22 08:04 Dino (Unflavored) Packet PO 1 packet BIDCM JORDEN Administration Latanoprost 1 drp 05/23/22 22:00 05/27/22 21:13 Latanoprost 0.005% 1 Bottle EACH EYE 1 drp QHS JORDEN Administration Magnesium Hydroxide 30 ml 05/23/22 20:36 Magnesium Hydroxide 30 Ml Udc PO X1 PRN Constipation Melatonin 3 mg 05/24/22 22:00 05/27/22 21:14 Melatonin 3 Mg Tablet PO 3 mg QHS JORDEN Administration Nateglinide 60 mg 05/24/22 07:45 05/28/22 12:33 Nateglinide 60 Mg Tablet PO 60 mg TIDCM JORDEN Administration Nutritional Formula (Lactose Free) 120 ml 05/24/22 07:45 05/28/22 12:33 Glucerna Shake 120 Ml Liquid PO 120 ml TIDCM JORDEN Administration Nystatin 1 applic 05/27/22 10:00 05/28/22 12:44 Nystatin Powder 15gm Bottle TOPICAL 1 applic BID@1000,2200 [facility] Administration Protocol Senna/Docusate Sodium 1 tablet 05/23/22 20:45 05/28/22 06:29 Senna/Docusate Sodium 1 Tablet PO 1 tablet BID JORDEN Administration Sodium Chloride 2 spray 05/23/22 18:00 Sodium Chloride 0.65% 1 [place].Btl NASAL TID PRN PRN NASAL DRYNESS Sodium Chloride 10 - 40 ml 05/23/22 18:24 05/24/22 04:50 0.9% Saline Lock 10 Ml Syringe IV 10 ml UD PRN Administration SALINE FLUSH Tramadol HCl 50 mg 05/27/22 07:51 Tramadol 50 Mg Tablet PO Q6H PRN PRN Pain Score 6-10 Tuberculin PPD 0.1 ml 05/31/22 10:00 Tuberculin,Purif.Prot.Deriv. 50 Tu/Ml Vial ID 05/31/22 10:01 X1 ONE Xylitol 1,100 mg 05/27/22 11:28 05/27/22 22:38 Xylitol 550 Mg Ma.Buc.Tab BUCCAL 1,100 mg Q4H PRN PRN Administration DRY MOUTH Problem List (Last Reviewed 05/23/22 @ 20:[address] Lance Arevalo MD) Hypertension (Chronic) Diabetes mellitus (Acute) Glaucoma (Acute) Breast abscess (Acute) Chronic kidney disease, stage 3a (Chronic) Acute kidney injury (Acute) Acute diastolic congestive heart failure (Acute) Acute respiratory failure with hypoxia (Acute) Debility (Acute) Vital Signs Temp Pulse Resp BP Pulse Ox O2 Del Method O2 Flow Rate 97.8 F 56 L 20 H 148/44 H 93 Room Air 2 05/28/22 14:29 05/28/22 14:29 05/28/22 14:29 05/28/22 14:29 05/28/22 14:29 05/28/22 14:29 05/24/22 14:27 Oxygen Flow Rate (L/min) 2 Oxygen Delivery Method Room Air Weight: 104.281 kg Body Mass Index (BMI) 43.7 Sodium 134 mmol/L (136-145) L 05/24/22 05:30 Potassium 4.4 mmol/L (3.5-5.1) 05/24/22 05:30 Chloride 102 mmol/L (98-107) 05/24/22 05:30 Carbon Dioxide 27.0 mmol/L (21.0-32.0) 05/24/22 05:30 Anion Gap 5 (5-15) 05/24/22 05:30 BUN 72 mg/dL (7-18) H 05/24/22 05:30 Creatinine 1.65 mg/dL (0.55-1.02) H 05/24/22 05:30 Est GFR (MDRD) Af Amer 38 mL/min (>60) L 05/24/22 05:30 Est GFR (MDRD) Non-Af 31 mL/min (>60) L 05/24/22 05:30 BUN/Creatinine Ratio 43.6 RATIO (10-20) H 05/24/22 05:30 Glucose 123 mg/dL (74-106) H 05/24/22 05:30 Assessment/Plan: 1) Pain: Acetaminophen 1000mg po qhs, Acetaminophen 1000mg po q6h prn for pain 1-5, Tramadol 50mg po q6h prn for pain 6-10. Please continue to monitor prn usage and for signs/symptoms of increased pain. --PRN Note: there have been zero Acetaminophen administrations to date --PRN Note: there have been zero Tramadol administrations to date 2) Bowel: Bisacodyl 10mg suppository x1 prn for constipation, Magnesium Hydroxide 30ml po x1 prn for constipation, Senna/Docusate 1 tablet po bid. Pt has refused 5 out of 10 Senna/Docusate doses. Please continue to monitor pt refusals. If pt continues to refuse, please consider changing from scheduled to prn administration. --PRN Note: there have been zero Bisacodyl administrations to date --PRN Note: there have been zero Magnesium Hydroxide administrations to date 3) Glaucoma: Latanoprost 1 drop into each eye every night at bedtime. Latanoprost, once opened, is stable for 6 weeks. Please ensure that a Beyond Use Date is marked on the bottle. 4) Hypertension: Carvedilol 6.25mg po bid, Hydralazine 100mg po tid, Amlodipine 10mg po daily. Pt's average blood pressure over the last 10 readings is 148.4/48.4. Please continue to monitor pt's blood pressure. Assessment/Plan for indications treated with psychotropic medications: Medical chart and medication regimen reviewed. The following medication irregularities or issues were identified: Date of Note:: 05/28/22
--- NOTE | 2022-05-28 14:38 | PCM.PN.DRR ---
TCU RX Drug Regimen Review Subjective: 86 YOF admitted to TCU on 05/23/22 after hospitalization at [facility] for SOB/ wound infection/ CHF exacerbation. Admitted to TCU for strengthening and rehabilitation prior to discharge home. Objective: Allergies morphine Adverse Reaction (Intermediate, Verified 05/20/22 01:46) mental status change meperidine HCl [From Demerol] Adverse Reaction (Mild, Verified 05/20/22 01:46) mental status change Current Medications Generic Name Dose Route Start Last Admin Trade Name Freq PRN Reason Stop Dose Admin Acetaminophen 1,000 mg 05/27/22 07:50 Acetaminophen 500 Mg Tablet PO Q6H PRN PRN Pain Score 1-5 Acetaminophen 1,000 mg 05/27/22 22:00 05/27/22 21:13 Acetaminophen 500 Mg Tablet PO 1,000 mg QHS JORDEN Administration Amlodipine Besylate 10 mg 05/24/22 08:00 05/28/22 08:04 Amlodipine 10 Mg Tablet PO 10 mg DAILY@0800 JORDEN Administration Ascorbic Acid 1,500 mg 05/24/22 08:00 05/28/22 06:29 Ascorbic Acid 500 Mg Tablet PO 1,500 mg DAILY JORDEN Administration Aspirin 81 mg 05/24/22 08:00 05/28/22 08:04 Aspirin 81 Mg Tab.Chew PO 81 mg DAILY@0800 [facility] Administration Bisacodyl 10 mg 05/23/22 18:14 Bisacodyl 10 Mg Suppository RC X1 PRN Constipation Carvedilol 6.25 mg 05/23/22 18:00 05/28/22 06:29 Carvedilol 6.25 Mg Tablet PO 6.25 mg BID JORDEN Administration Cholecalciferol 250 mcg 05/24/22 08:00 05/28/22 06:29 Cholecalciferol (Vit D3) 125 Mcg Capsule (5,000 Units) PO 250 mcg DAILY JORDEN Administration Hydralazine HCl 100 mg 05/23/22 22:00 05/28/22 14:26 Hydralazine 50 Mg Tablet PO 100 mg TID JORDEN Administration L-Arginine/L-Glutamine/Calcium HMB 1 packet 05/27/22 08:00 05/28/22 08:04 Dino (Unflavored) Packet PO 1 packet BIDCM JORDEN Administration Latanoprost 1 drp 05/23/22 22:00 05/27/22 21:13 Latanoprost 0.005% 1 Bottle EACH EYE 1 drp QHS JORDEN Administration Magnesium Hydroxide 30 ml 05/23/22 20:36 Magnesium Hydroxide 30 Ml Udc PO X1 PRN Constipation Melatonin 3 mg 05/24/22 22:00 05/27/22 21:14 Melatonin 3 Mg Tablet PO 3 mg QHS JORDEN Administration Nateglinide 60 mg 05/24/22 07:45 05/28/22 12:33 Nateglinide 60 Mg Tablet PO 60 mg TIDCM JORDEN Administration Nutritional Formula (Lactose Free) 120 ml 05/24/22 07:45 05/28/22 12:33 Glucerna Shake 120 Ml Liquid PO 120 ml TIDCM JORDEN Administration Nystatin 1 applic 05/27/22 10:00 05/28/22 12:44 Nystatin Powder 15gm Bottle TOPICAL 1 applic BID@1000,2200 [facility] Administration Protocol Senna/Docusate Sodium 1 tablet 05/23/22 20:45 05/28/22 06:29 Senna/Docusate Sodium 1 Tablet PO 1 tablet BID JORDEN Administration Sodium Chloride 2 spray 05/23/22 18:00 Sodium Chloride 0.65% 1 [place].Btl NASAL TID PRN PRN NASAL DRYNESS Sodium Chloride 10 - 40 ml 05/23/22 18:24 05/24/22 04:50 0.9% Saline Lock 10 Ml Syringe IV 10 ml UD PRN Administration SALINE FLUSH Tramadol HCl 50 mg 05/27/22 07:51 Tramadol 50 Mg Tablet PO Q6H PRN PRN Pain Score 6-10 Tuberculin PPD 0.1 ml 05/31/22 10:00 Tuberculin,Purif.Prot.Deriv. 50 Tu/Ml Vial ID 05/31/22 10:01 X1 ONE Xylitol 1,100 mg 05/27/22 11:28 05/27/22 22:38 Xylitol 550 Mg Ma.Buc.Tab BUCCAL 1,100 mg Q4H PRN PRN Administration DRY MOUTH Problem List (Last Reviewed 05/23/22 @ 20:[address] Lance Arevalo MD) Hypertension (Chronic) Diabetes mellitus (Acute) Glaucoma (Acute) Breast abscess (Acute) Chronic kidney disease, stage 3a (Chronic) Acute kidney injury (Acute) Acute diastolic congestive heart failure (Acute) Acute respiratory failure with hypoxia (Acute) Debility (Acute) Vital Signs Temp Pulse Resp BP Pulse Ox O2 Del Method O2 Flow Rate 97.8 F 56 L 20 H 148/44 H 93 Room Air 2 05/28/22 14:29 05/28/22 14:29 05/28/22 14:29 05/28/22 14:29 05/28/22 14:29 05/28/22 14:29 05/24/22 14:27 Oxygen Flow Rate (L/min) 2 Oxygen Delivery Method Room Air Weight: 104.281 kg Body Mass Index (BMI) 43.7 Sodium 134 mmol/L (136-145) L 05/24/22 05:30 Potassium 4.4 mmol/L (3.5-5.1) 05/24/22 05:30 Chloride 102 mmol/L (98-107) 05/24/22 05:30 Carbon Dioxide 27.0 mmol/L (21.0-32.0) 05/24/22 05:30 Anion Gap 5 (5-15) 05/24/22 05:30 BUN 72 mg/dL (7-18) H 05/24/22 05:30 Creatinine 1.65 mg/dL (0.55-1.02) H 05/24/22 05:30 Est GFR (MDRD) Af Amer 38 mL/min (>60) L 05/24/22 05:30 Est GFR (MDRD) Non-Af 31 mL/min (>60) L 05/24/22 05:30 BUN/Creatinine Ratio 43.6 RATIO (10-20) H 05/24/22 05:30 Glucose 123 mg/dL (74-106) H 05/24/22 05:30 Assessment/Plan: Pain - Tylenol 1000mg q6h prn pain (1-10). Bowel - senna/colace 1 tablet bid, Dulcolax 10mg pr x 1 prn, MOM 30ml daily prn. Adult immunization - Administer pneumonia vaccine, covid19 vaccine, flu vaccine as appropriate. DVT prophylaxis - Hold, anemia. Hypertension - Carvedilol 6.25mg bid, Clonidine 0.1mg qhs, Hydralazine 100mg tid, Amlodipine 10mg daily. Vitamin C deficiency - Vitamin C 500mg daily. CV prophylaxis - Aspirin 81mg daily.. Nutrition - Glucerna Shake 120ml po tidcm. Glaucoma - Latanoprost 1gtt ou qhs. Diabetes Mellitus II - Starlix 60mg po tidcm. Dry Nares - Sodium chloride 2 spray nasal tid prn. Vitamin D deficiency - D3 125mcg daily. Assessment/Plan for indications treated with psychotropic medications: Medical chart and medication regimen reviewed. The following medication irregularities or issues were identified: Date of Note:: 05/24/22
--- NOTE | 2022-05-28 18:43 | NURSING ---
Pt Blood [id number] Arevalo updated and per Dr. Mickey marley to give coreg. Will continue to monitor.
[2022-05-28] MEDS: Latanoprost 0.005% 1 Bottle 1 DRP EACH EYE (22:02)
[2022-05-28] MEDS: Acetaminophen 500 MG Tablet 1000 MG PO (22:02)
[2022-05-28 22:03] VITALS: BP 168/43; PULSE 57
[2022-05-28] MEDS: MELATONIN 3 MG TABLET PO (22:03)
[2022-05-29] MEDS: Ascorbic Acid 500 MG Tablet 1500 MG PO (05:28)
[2022-05-29] MEDS: Carvedilol 6.25 MG Tablet PO ×2 (05:28→17:27)
[2022-05-29 05:29] VITALS: BP 169/51; PULSE 58
[2022-05-29] MEDS: Cholecalciferol (Vit D3) 125 MCG CAPSULE (5,000 UNITS) 250 MCG PO (05:29)
[2022-05-29] MEDS: Senna/Docusate Sodium 1 Tablet PO ×2 (05:29→17:27)
[2022-05-29] MEDS: hydrALAZINE 50 MG Tablet 100 MG PO ×3 (05:29→22:32)
[2022-05-29] MEDS: Menthol/Lanolin/Calamine/Znox 113 GM Tube 1 APPLIC TOPICAL ×2 (05:39→17:28)
[2022-05-29 06:36] LABS: Bedside Glucose 127 mg/dL (74-106)
[2022-05-29] MEDS: amLODIPine 10 MG Tablet PO (08:13)
[2022-05-29] MEDS: Furosemide 40 MG Tablet PO (08:13)
[2022-05-29] MEDS: Glucerna Shake 120 ML LIQUID PO ×3 (08:13→17:26)
[2022-05-29] MEDS: Aspirin 81 MG TAB.CHEW PO (08:13)
[2022-05-29] MEDS: Juven (unflavored) Packet 1 PACKET PO ×2 (08:13→17:25)
[2022-05-29] MEDS: NATEGLINIDE 60 MG TABLET PO ×3 (08:13→17:27)
--- NOTE | 2022-05-29 10:22 | CASEMGMT ---
Social Work IDT met with patient, dtr and son for care plan meeting. Discussed patient's progress in PT/OT/SN. Educated to [facility] insurance with [employer] 06/03 and continued stay is not guaranteed with each review. Pts goal is to return home at [facility]. Renter in basement assists with some IADLs at times. Pt voices wanting to improve on her balance and not a high fall risk. Dtr stated family installed a walk-in shower and ramp since pt's admission. Pts goal is to return home at [facility]. Confirmed code status and completed MOLST form. Dtr requested to review advanced directives but pt denied. SW offered to review if pt elected. SW to continue to follow. Citlaly Quigley, [employer] EXECUTIVE [employer] PROFESS[employer]
[2022-05-29] MEDS: Nystatin Powder 15gm Bottle 1 APPLIC TOPICAL ×2 (11:54→22:33)
--- NOTE | 2022-05-29 12:09 | PN.RENAL_ITS ---
Subjective Subjective Being seen for a follow-up. She was admitted to the hospital with fluid overload. Feels better overall. Moderate amount of lower extremity edema. Breathing is acceptable at rest. Objective Data Objective Data Vital Signs: Vital Signs Temp Pulse Resp BP Pulse Ox O2 Del Method O2 Flow Rate 97.8 F 58 L 20 H 169/51 H 93 Room Air 2 05/28/22 14:29 05/29/22 05:29 05/28/22 14:29 05/29/22 05:29 05/28/22 14:29 05/28/22 14:29 05/24/22 14:27 Oxygen Flow Rate (L/min) 2 Oxygen Delivery Method Room Air Weight: 104.281 kg Body Mass Index (BMI) 43.7 Intake & Output: Intake and Output for Last 24 Hours 05/27/22 05/28/22 05/29/22 23:59 23:59 23:59 Intake Total 720 / 720 720 / 720 360 / 360 Balance 720 / 720 720 / 720 360 / 360 Lab / Micro Data Result Diagrams: 05/24/22 05:30 05/24/22 05:30 Labs: Laboratory Results - last 24 hr 05/29/22 06:16: POC Glucose 127 H Physical Exam Narrative Alert awake oriented x 3 no obvious distress no pallor no icterus no JVD s1s2 no murmurs lungs clear abdomen soft no organomegaly + edema no cyanosis Assessment & Plan Assessment/Plan (1) Chronic kidney disease, stage 3a: PLAN: Prior to admission, baseline creatinine was between 1.2-1.3. In hospital in the setting of diuresis, creatinine peaked around 1.9, currently down to 1.6. Abdominal imaging showed atrophic left kidney. Renal Dopplers from September of this year did not show any stenosis. Overall creatinine is better. (2) Acute kidney injury: (3) Hypertension: PLAN: Still on the higher side. On carvedilol 6.25 mg p.o. twice daily, heart rate is in the 50s, further dose increases are limited Hydralazine 100 mg p.o. 3 times daily, max dose Amlodipine 10 mg orally once a day, max dose Added Lasix 40 mg orally once a day for today. She does have moderate amount of lower extremity edema, was admitted in the hospital with fluid overload hence I believe this is needed. She was on lisinopril before, we held it due to MALATHI. If creatinine stabilizes, we might resume this She was on clonidine which caused dry mouth, currently on hold Renal Doppler negative for any stenosis Continue same medications, if creatinine is stable this Friday, will add low- dose lisinopril and increase as needed
--- NOTE | 2022-05-29 12:53 | CASEMGMT ---
Social Work Interviews completed for MDS on this date. BIMS score . PHQ9 score 11/14. Pt indicating depression is related to feelings of frustration and disappointment with ongoing medical problems and need for SNF. Pt frustrated and would like to return home. Pt adamant that she does not want to add medication for mood and states she chaim by being around people. SUHAS Roland
[2022-05-29 13:29] VITALS: BP 160/43; PULSE 59; RESP 18; TEMP 36.4; O2SAT 92
[2022-05-29 13:32] VITALS: BP 160/43; PULSE 58
--- NOTE | 2022-05-29 14:37 | CHAPLAIN ---
Type of Pastoral Visit ___ Initial Visit _x__ Follow-up Visit ___ On-call Visit ___ General Patient Visit ___ Spiritual Assessment ___ Family Conference ___ Bereavement ___ Rapid Response ___ Code Blue ___ Other (describe below) Pastoral Care Referral From _x__ Patient ___ Family ___ Nurse ___ Physician ___ Stage Electrician ___ Sales Exec ___ Other (describe below) Sacrament/Intervention _x__ Active listening ___ Anointing ___ Hinduism ___ Bereavement ___ Communion ___ Elenita exploration ___ ___ Life review _x__ Prayer ___ Reconciliation ___ Sacrament of Sick __x_ Supportive presence ___ Wedding ___ Other (describe below) Pastoral Comments patient reports some progress; pt has many cards and elder in the room and states I have such wonderful friends, restoration friends, neighbors, that are so good to me; pt daughter is in the room and often interjects into the conversation; pt speaks of her Bible reading and focus on her elenita; pt welcomes prayer and presence
[2022-05-29 22:32] VITALS: BP 169/43; PULSE 60
[2022-05-29] MEDS: Latanoprost 0.005% 1 Bottle 1 DRP EACH EYE (22:32)
[2022-05-29] MEDS: Acetaminophen 500 MG Tablet 1000 MG PO (22:32)
[2022-05-29] MEDS: MELATONIN 3 MG TABLET PO (22:33)
[2022-05-29 23:41] VITALS: PULSE 61; RESP 16; O2SAT 95
[2022-05-30] VITALS (7 sets, daily range): BP systolic 127–177; BP diastolic 32–54; PULSE 54–63; RESP 14–18; TEMP 36.3; O2SAT 94–96
[2022-05-30] MEDS: traMADol 50 MG Tablet PO (04:26)
[2022-05-30] MEDS: Furosemide 40 MG Tablet PO (04:27)
[2022-05-30] MEDS: Carvedilol 6.25 MG Tablet PO ×2 (04:27→17:14)
[2022-05-30] MEDS: Cholecalciferol (Vit D3) 125 MCG CAPSULE (5,000 UNITS) 250 MCG PO (04:27)
[2022-05-30] MEDS: Ascorbic Acid 500 MG Tablet 1500 MG PO (04:27)
[2022-05-30] MEDS: Menthol/Lanolin/Calamine/Znox 113 GM Tube 1 APPLIC TOPICAL ×2 (04:28→17:14)
[2022-05-30] MEDS: Senna/Docusate Sodium 1 Tablet PO ×2 (04:29→17:14)
[2022-05-30] MEDS: hydrALAZINE 50 MG Tablet 100 MG PO ×3 (04:33→21:40)
[2022-05-30 06:40] LABS: Bedside Glucose 134 mg/dL (74-106)
[2022-05-30] MEDS: NATEGLINIDE 60 MG TABLET PO ×3 (08:32→17:14)
[2022-05-30] MEDS: Aspirin 81 MG TAB.CHEW PO (08:33)
[2022-05-30] MEDS: Juven (unflavored) Packet 1 PACKET PO ×2 (08:35→17:13)
[2022-05-30] MEDS: Glucerna Shake 120 ML LIQUID PO ×2 (08:35→17:13)
--- NOTE | 2022-05-30 09:48 | NURSING ---
Manager Performance Improvement Note; MDS Complete
[2022-05-30] MEDS: Nystatin Powder 15gm Bottle 1 APPLIC TOPICAL ×2 (11:31→21:37)
--- NOTE | 2022-05-30 16:00 | PCM.PN.BLA ---
Progress Note Patient evaluated resting comfortably in the chair. Patient was evaluated with Madelin. Cavity tunneled approximately 2.4 cm directly superior towards the shoulder. Nu gauze was placed followed by gauze dressing. Patient tolerated the procedure well. I will follow-up with the patient on Friday. I will continue to provide updates to Dr. Michel. Visit Charges Inpatient E&M: 70848 Subs Hosp L1 (No charge)
[2022-05-30] MEDS: Latanoprost 0.005% 1 Bottle 1 DRP EACH EYE (21:38)
[2022-05-30] MEDS: Acetaminophen 500 MG Tablet 1000 MG PO (21:38)
[2022-05-30] MEDS: MELATONIN 3 MG TABLET PO (21:40)
[2022-05-31 05:41] LABS: Absolute Lymphocyte Count 2.94 X10^3/uL (0.83-4.51); Basophil# 0.09 X10^3/uL; Basophil% 1.1 % (0-1); Eosinophil# 0.42 X10^3/uL; Hematocrit 33.6 % (37-47); Hemoglobin 10.9 g/dL (12.0-15.0); Lymphocyte # 2.94 X10^3/ul (0.83-4.51); Lymphocyte % 35.1 % (19-41); Mean Corp Hgb Conc 32.4 g/dL (32-36); Mean Corpuscular Hgb 29.1 pg (27.0-32.0); Mean Corpuscular Volume 89.6 fL (81-99); Mean Platelet Vol. 10.7 fl (6.2-12.0); Monocyte# 0.94 X10^3/uL; Monocyte% 11.2 % (0-10); NRBC Flagged by Analyzer 0 % (0-5); Neutrophil # 3.96 X10^3/uL (2.7-7.7); Neutrophil % 47.2 % (47-70); Platelet Count 251 K/mm3 (150-450); RBC Distribution Width CV 14.3 % (11.6-14.6); Red Blood Count 3.75 M/mm3 (4.2-5.4); White Blood Count 8.4 K/mm3 (4.4-11.0)
[2022-05-31 05:50] VITALS: BP 167/51; PULSE 55
[2022-05-31] MEDS: hydrALAZINE 50 MG Tablet 100 MG PO ×3 (05:50→20:22)
[2022-05-31] MEDS: Ascorbic Acid 500 MG Tablet 1500 MG PO (05:50)
[2022-05-31] MEDS: Cholecalciferol (Vit D3) 125 MCG CAPSULE (5,000 UNITS) 250 MCG PO (05:50)
[2022-05-31] MEDS: Furosemide 40 MG Tablet PO (05:51)
[2022-05-31] MEDS: Menthol/Lanolin/Calamine/Znox 113 GM Tube 1 APPLIC TOPICAL ×2 (05:51→17:08)
[2022-05-31] MEDS: Carvedilol 6.25 MG Tablet PO ×2 (05:51→17:07)
[2022-05-31] MEDS: Senna/Docusate Sodium 1 Tablet PO ×2 (05:52→17:07)
[2022-05-31 06:00] LABS: Anion Gap 5 (5-15); BUN 88 mg/dL (7-18); BUN/Creat Ratio 61.5 RATIO (10-20); Calcium,Total 10.2 mg/dL (8.5-10.1); Chloride 105 mmol/L (98-107); Creatinine, Serum 1.43 mg/dL (0.55-1.02); EST Glomerular Filtration Rate 37 mL/min (>60); Est Glom Filt Rate - Afr Amer 45 mL/min (>60); Glucose 117 mg/dL (74-106); Potassium 5.1 mmol/L (3.5-5.1); Sodium Level 135 mmol/L (136-145)
[2022-05-31 06:40] LABS: Bedside Glucose 129 mg/dL (74-106)
--- NOTE | 2022-05-31 08:05 | CON.PCM_ITS ---
Assessment & Plan Assessment/Plan (1) Tinea unguium: (2) Pain around toenail, right foot: (3) Pain around toenail, left foot: (4) Diabetes mellitus: PLAN: Plan Evaluation performed. Reviewed findings with her. Debrided toenails 1-5 bilateral using a nail nipper, removing bulk. Reviewed proper foot care. She can follow up as outpatient as needed for further foot care. Thank you for consultation. HPI Consult Data Date of Consult: 05/31/22 HPI Narrative Reason for Consultation: Foot care HPI Narrative: DEBBIE KENNEY, is a 86 F who was seen for foot care. Patient has history of multiple medical problems including but not limited to diabetes, chronic kidney disease and heart disease. She also has history of breast cancer and had surgery recently, and now is in TCU for rehab. She relates she needs toenails reduced, they get long and thickened and bother her. She is not able to reduce them herself. She has chronic lower extremity swelling. She follows with vault keeper as outpatient. She has no open lesions or any other foot or ankle complaints at this time. She is resting comfortably in bed at this time. [facility] Medical History Ambulates with cane Arthritis Bilateral carotid artery stenosis Bilateral extracranial carotid artery stenosis Breast abscess Cancer Difficulty swallowing GERD (gastroesophageal reflux disease) History of edema History of IBS History of renal disease History of steroid therapy HTN (hypertension) Hyperlipidemia Infected seroma, postoperative Leg cramps Non-smoker PONV (postoperative nausea and vomiting) Shortness of breath on exertion Sleep apnea Type 2 diabetes mellitus Wears glasses Wears hearing aid Home Medications ascorbic acid (vitamin C) 500 mg tablet 500 mg PO DAILY supplement 07/29/14 [History Last Taken 09/25/18] latanoprost 0.005 % eye drops (Xalatan) 1 drp EACH EYE [facility] Cataracts/Dry eye 07/29/14 [History Last Taken 09/24/18] omega-3 fatty acids-fish oil 300 mg-1,000 mg capsule 1 ea PO DAILY SUPPLEMENT 07/29/14 [History Last Taken 09/25/18] nateglinide 60 mg tablet 60 mg PO TID BLOOD GLUCOSE 08/27/17 [History Last Taken 09/25/18 08:00] aspirin 81 mg chewable tablet 81 mg PO DAILY HEART HEALTH 06/26/18 [History Last Taken 09/24/18] lisinopril 20 mg tablet 20 mg PO BID HTN 11/09/21 [History Last Taken Unknown] cholecalciferol (vitamin D3) 125 mcg (5,000 unit) capsule 125 mcg PO DAILY SUPPLEMENT 04/01/22 [History Last Taken Unknown] liver supplement 1 cap PO QHS SUPPLEMENT 04/01/22 [History Last Taken Unknown] clonidine HCl 0.1 mg tablet 0.1 mg PO QHS BP 05/15/22 [History Last Taken Unknown] acetaminophen 500 mg tablet 1,000 mg PO Q8H PRN PRN Pain 1-10 Or Fever #0 tabs 05/23/22 [Rx Last Taken Unknown] amlodipine 10 mg tablet 10 mg PO DAILY BP 05/23/22 [History Last Taken Unknown] carvedilol 6.25 mg tablet 6.25 mg PO BID BP 05/23/22 [History Last Taken Unknown] hydralazine 50 mg tablet 100 mg PO TID BP 05/23/22 [History Last Taken Unknown] insulin lispro 100 unit/mL subcutaneous pen (Humalog KwikPen (U-100) Insulin) See Protocol subcut TIDAC Diabetes 05/23/22 [History Last Taken Unknown] sodium chloride 0.65 % nasal spray aerosol (Deep Sea Nasal) 2 spray NASAL TID PRN PRN NASAL DRYNESS #0 mL 05/23/22 [Rx Last Taken Unknown] Allergy/AdvReac Type Severity Reaction Status Date / Time morphine AdvReac Intermediate mental Verified 05/20/22 01:46 status change meperidine HCl [From Demerol] AdvReac Mild mental Verified 05/20/22 01:46 status change Family History Brother Pancreatic cancer Diabetes Heart disease Lung cancer Hypertension Colon cancer Mother Hypertension Brother No problems noted. 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 housing: house Smoking Status: Never smoker alcohol intake: never substance use type: does not use what type of physical activity do you participate in: none seatbelt use: always do you feel safe at home: Yes Physical Exam Const alert, oriented x3 and no apparent distress Extremity Extremity Narrative: Foot/ankle bilateral: There are no open lesions, no drainage, no erythema, no ecchymosis, no blistering; toenails 1-5 bilateral are elongated, yellow, thickened, dystrophic and painful; CFT < 2 seconds to all toes, no evidence of acute ishcemia, there is diffuse chronic LE edema c/w hx of CKD and CHF, no calf pain, no m/s pop or pain on rom, no evidence of acute charcot neuroarthropathy, sensation intact to light touch. Lab / Micro Data Result Diagrams: 05/31/22 05:27 05/31/22 05:27 Labs: Laboratory Results - last 24 hr 05/31/22 05:27: WBC 8.4, RBC 3.75 L, Hgb 10.9 L, Hct 33.6 L, MCV 89.6, MCH 29.1, MCHC 32.4, RDW Std Deviation 47.0 H, RDW Coeff of Pedro 14.3, Plt Count 251, MPV 10.7, Immature Gran % (Auto) 0.400, Neut % (Auto) 47.2, Lymph % (Auto) 35.1, [place] % (Auto) 11.2 H, Eos % (Auto) 5.0, Baso % (Auto) 1.1 H, Absolute Neuts (auto) 4.0, Absolute Lymphs (auto) 2.94, Nucleated RBC % 0 05/31/22 05:27: Sodium 135 L, Potassium 5.1, Chloride 105, Carbon Dioxide 25.0, Anion Gap 5, BUN 88 H, Creatinine 1.43 H, Estim Creat Clear Calc 21.70, Est GFR (MDRD) Af Amer 45 L, Est GFR (MDRD) Non-Af 37 L, BUN/Creatinine Ratio 61.5 H, Glucose 117 H, Calcium 10.2 H 05/31/22 06:19: POC Glucose 129 H
[2022-05-31] MEDS: Juven (unflavored) Packet 1 PACKET PO ×2 (08:19→17:05)
[2022-05-31] MEDS: NATEGLINIDE 60 MG TABLET PO ×3 (08:20→17:05)
[2022-05-31] MEDS: Glucerna Shake 120 ML LIQUID PO ×2 (08:26→18:35)
[2022-05-31] MEDS: Aspirin 81 MG TAB.CHEW PO (08:27)
[2022-05-31] MEDS: amLODIPine 10 MG Tablet PO (08:32)
[2022-05-31] MEDS: Nystatin Powder 15gm Bottle 1 APPLIC TOPICAL ×2 (08:34→20:23)
[2022-05-31] MEDS: Tuberculin,Purif.prot.deriv. 50 TU/ML Vial 0.1 ML ID (10:20)
[2022-05-31] MEDS: Lisinopril 20 MG Tablet PO (10:24)
[2022-05-31 14:22] VITALS: BP 138/67; PULSE 57
[2022-05-31 14:30] VITALS: BP 138/43; PULSE 56; RESP 16; TEMP 36.4; O2SAT 91
--- NOTE | 2022-05-31 17:57 | NURSING ---
Daughter informed nurse pt is to have a renal artery duplex on 06/06/22 at [facility] ordered by Dr. Blanca Lal. Per daughter procedure has already been approved through insurance. Will report at shift change.
[2022-05-31] MEDS: MELATONIN 3 MG TABLET PO (20:21)
[2022-05-31 20:22] VITALS: BP 135/49; PULSE 60
[2022-05-31] MEDS: Acetaminophen 500 MG Tablet 1000 MG PO (20:22)
[2022-05-31] MEDS: Latanoprost 0.005% 1 Bottle 1 DRP EACH EYE (20:24)
[2022-06-01] MEDS: Furosemide 40 MG Tablet PO (05:14)
[2022-06-01] MEDS: Ascorbic Acid 500 MG Tablet 1500 MG PO (05:14)
[2022-06-01] MEDS: Senna/Docusate Sodium 1 Tablet PO ×2 (05:14→17:49)
[2022-06-01] MEDS: Cholecalciferol (Vit D3) 125 MCG CAPSULE (5,000 UNITS) 250 MCG PO (05:14)
[2022-06-01] MEDS: Lisinopril 20 MG Tablet PO (05:15)
[2022-06-01] MEDS: Carvedilol 6.25 MG Tablet PO ×2 (05:15→17:50)
[2022-06-01] MEDS: Menthol/Lanolin/Calamine/Znox 113 GM Tube 1 APPLIC TOPICAL ×2 (05:15→17:50)
[2022-06-01 05:16] VITALS: BP 143/38; PULSE 56
[2022-06-01] MEDS: Acetaminophen 500 MG Tablet 1000 MG PO ×2 (05:25→21:07)
[2022-06-01 06:55] LABS: Bedside Glucose 159 mg/dL (74-106)
[2022-06-01] MEDS: Aspirin 81 MG TAB.CHEW PO (08:19)
[2022-06-01] MEDS: NATEGLINIDE 60 MG TABLET PO ×3 (08:20→17:49)
[2022-06-01] MEDS: Glucerna Shake 120 ML LIQUID PO ×3 (08:20→17:49)
[2022-06-01] MEDS: amLODIPine 10 MG Tablet PO (08:20)
[2022-06-01 08:23] VITALS: BP 128/72; PULSE 53; RESP 18; TEMP 36.2; O2SAT 94
[2022-06-01] MEDS: Nystatin Powder 15gm Bottle 1 APPLIC TOPICAL ×2 (12:31→21:08)
[2022-06-01 13:51] VITALS: BP 144/53; PULSE 53
[2022-06-01] MEDS: hydrALAZINE 50 MG Tablet 100 MG PO (13:51)
[2022-06-01] MEDS: Juven (unflavored) Packet 1 PACKET PO (17:49)
[2022-06-01 21:00] VITALS: PULSE 52; RESP 16; O2SAT 92
[2022-06-01] MEDS: Latanoprost 0.005% 1 Bottle 1 DRP EACH EYE (21:06)
[2022-06-01] MEDS: MELATONIN 3 MG TABLET PO (21:07)
[2022-06-01 21:09] VITALS: BP 123/36; PULSE 52
[2022-06-02] MEDS: Ascorbic Acid 500 MG Tablet 1500 MG PO (05:53)
[2022-06-02] MEDS: Cholecalciferol (Vit D3) 125 MCG CAPSULE (5,000 UNITS) 250 MCG PO (05:54)
[2022-06-02] MEDS: Furosemide 40 MG Tablet PO (05:54)
[2022-06-02] MEDS: Carvedilol 6.25 MG Tablet PO ×2 (05:54→17:42)
[2022-06-02] MEDS: Lisinopril 20 MG Tablet PO (05:54)
[2022-06-02] MEDS: Senna/Docusate Sodium 1 Tablet PO ×2 (05:54→17:42)
[2022-06-02 05:55] VITALS: BP 154/40; PULSE 58
[2022-06-02] MEDS: hydrALAZINE 50 MG Tablet 100 MG PO ×2 (05:55→13:48)
[2022-06-02] MEDS: Menthol/Lanolin/Calamine/Znox 113 GM Tube 1 APPLIC TOPICAL ×2 (05:59→17:42)
[2022-06-02 06:30] LABS: Bedside Glucose 104 mg/dL (74-106)
[2022-06-02] MEDS: NATEGLINIDE 60 MG TABLET PO ×3 (08:30→17:42)
[2022-06-02] MEDS: Glucerna Shake 120 ML LIQUID PO ×3 (08:30→17:42)
[2022-06-02] MEDS: Aspirin 81 MG TAB.CHEW PO (08:30)
[2022-06-02] MEDS: Juven (unflavored) Packet 1 PACKET PO ×2 (08:30→17:41)
[2022-06-02 08:44] VITALS: BP 120/39; PULSE 49
[2022-06-02] MEDS: Nystatin Powder 15gm Bottle 1 APPLIC TOPICAL ×2 (12:30→21:25)
[2022-06-02 13:46] VITALS: BP 153/47; PULSE 57; RESP 16; TEMP 36.8; O2SAT 95
[2022-06-02 13:48] VITALS: BP 153/47; PULSE 57
[2022-06-02] MEDS: Acetaminophen 500 MG Tablet 1000 MG PO (21:22)
[2022-06-02] MEDS: MELATONIN 3 MG TABLET PO (21:23)
[2022-06-02] MEDS: Latanoprost 0.005% 1 Bottle 1 DRP EACH EYE (21:23)
[2022-06-02 21:25] VITALS: BP 140/30; PULSE 57
[2022-06-03 06:13] VITALS: BP 148/37; PULSE 64
[2022-06-03] MEDS: Furosemide 40 MG Tablet PO (06:13)
[2022-06-03] MEDS: Ascorbic Acid 500 MG Tablet 1500 MG PO (06:13)
[2022-06-03] MEDS: hydrALAZINE 50 MG Tablet 100 MG PO ×3 (06:13→20:23)
[2022-06-03] MEDS: Senna/Docusate Sodium 1 Tablet PO ×2 (06:14→18:03)
[2022-06-03] MEDS: Cholecalciferol (Vit D3) 125 MCG CAPSULE (5,000 UNITS) 250 MCG PO (06:14)
[2022-06-03] MEDS: Carvedilol 6.25 MG Tablet PO ×2 (06:14→18:03)
[2022-06-03] MEDS: Lisinopril 20 MG Tablet PO (06:14)
[2022-06-03] MEDS: Menthol/Lanolin/Calamine/Znox 113 GM Tube 1 APPLIC TOPICAL ×2 (06:15→18:08)
[2022-06-03 06:56] LABS: Bedside Glucose 122 mg/dL (74-106)
[2022-06-03] MEDS: Glucerna Shake 120 ML LIQUID PO ×3 (07:57→18:02)
[2022-06-03] MEDS: NATEGLINIDE 60 MG TABLET PO ×3 (07:57→18:03)
[2022-06-03] MEDS: Aspirin 81 MG TAB.CHEW PO (07:58)
[2022-06-03] MEDS: Juven (unflavored) Packet 1 PACKET PO ×2 (07:58→18:02)
[2022-06-03] MEDS: amLODIPine 10 MG Tablet PO (07:58)
--- NOTE | 2022-06-03 09:39 | PCM.PN.BLA ---
Progress Note Nephrology brief note. BP has improved after adding lisinopril on 05/31/2022. Renal function has been stable. However, I will recheck renal function panel again tomorrow since we started FREIDA inhibitor 3 days ago. Jamel Mcintyre MD
--- NOTE | 2022-06-03 11:15 | NURSING ---
Radiology contacted regarding renal artery duplex on 06/06. This will take place at 0900 and staff or family to take down. Pt t be NPO after midnight before the procedure. Confirmed precert completed.
--- NOTE | 2022-06-03 11:53 | WOUNDNOTE ---
wound photo: right breast
[2022-06-03] MEDS: Nystatin Powder 15gm Bottle 1 APPLIC TOPICAL ×2 (13:33→20:25)
[2022-06-03 14:32] VITALS: BP 133/38; PULSE 54
[2022-06-03 16:00] VITALS: BP 142/57; PULSE 82; RESP 18; TEMP 36.8; O2SAT 96
--- NOTE | 2022-06-03 16:40 | CASEMGMT ---
Social Work Insurance issued LCD 05/21, DC 06/06. Spoke with pt and dtr, whom was present in room. Pt not feeling ready to go home as nausea is still an issue. Offered taking morning medications with breakfast. Pt and dtr stated the nurse will start that tomorrow, but this just started 3 days ago and has not taken her meds any different. SW educated to appeal rights. Pt not wanting to figt with the insurance but dtr seems interested. SW asked if pt does appeal to notify this worker. Otherwise, pt will plan on DC home 06/06. Provided printed list of skilled [facility] agencies with quality and resource data via [employer] but pt elected [facility], whom she used prior. Dtr asked for D[employer]ER PREPARER. SW to order PT/OT/SN/GLOVER. No DME needs. Pt has dr puente at 0900 and would like to return home lunch and get DC instructions then DC after. SW agreed. Dtr to transport. SW made referral via phone and [employer] to [facility]. Plan: DC home 06/06, [facility] PT/OT/SN/GLOVER OLIVER Curiel
--- NOTE | 2022-06-03 19:06 | DS.PCM_ITS ---
Providers Date of Admission: 05/23/22 Primary Care Physician: Dr. Martina Lal DO Consultations 05/23/22 18:53 Consult: Onc/Wound/rn coronary care unit Routine Comment: Reason for Consult:: seen on acute for wound, cont to follow 05/24/22 07:56 Consult: Nephrology Routine Consulting Provider: Jose Maria Hudson Reason for Consult: Acute on chronic kidney failue. EMERGENT Consult: No MD Notified: Yes Date Notified: 05/28/22 Time Notified: 09:40 Method of Notification: Verbal 05/29/22 07:49 Consult: Podiatry Routine Consulting Provider: Buzz Duran Reason for Consult: General foot care. EMERGENT Consult: No MD Notified: Yes Date Notified: 05/29/22 Time Notified: 07:49 Method of Notification: Answering Service Reason For Visit: CHF Diagnosis Discharge Diagnosis (1) Tinea unguium: Status: Acute Code(s): B35.1 - Tinea unguium (2) Pain around toenail, right foot: Status: Acute Code(s): M79.674 - Pain in right toe(s) (3) Pain around toenail, left foot: Status: Acute Code(s): M79.675 - Pain in left toe(s) (4) Diabetes mellitus: Status: Acute Code(s): E11.9 - Type 2 diabetes mellitus without complications Plan 86 year old female with below past medical history hospitalized for acute respiratory failure with hypoxia secondary to acute diastolic congestive heart failure, complicated by hypertensive urgency, acute on chronic kidney injury, admitted to TCU with debility, here for rehabilitation, strengthening, prior to discharge home alone. * Debility - PT/OT. * Pain - Tylenol 1000mg q6h prn pain (1-10). * Bowel - senna/colace 1 tablet bid, Dulcolax 10mg pr x 1 prn, MOM 30ml daily prn. * Adult immunization - Administer pneumonia vaccine, covid19 vaccine, flu vaccine as appropriate. * DVT prophylaxis - Hold, anemia. * Hypertension - Carvedilol 6.25mg bid, Clonidine 0.1mg qhs, Hydralazine 100mg tid, Amlodipine 10mg daily. * Vitamin C deficiency - Vitamin C 500mg daily. * CV prophylaxis - Aspirin 81mg daily.. * Nutrition - Glucerna Shake 120ml po tidcm. * Glaucoma - Latanoprost 1gtt ou qhs. * Diabetes Mellitus II - Starlix 60mg po tidcm. * Dry Nares - Sodium chloride 2 spray nasal tid prn. * Vitamin D deficiency - D3 125mcg daily. Medications at Discharge Home Medications latanoprost 0.005 % eye drops (Xalatan) 1 drp EACH EYE [facility] Cataracts/Dry eye 07/29/14 omega-3 fatty acids-fish oil 300 mg-1,000 mg capsule 1 ea PO DAILY SUPPLEMENT 07/29/14 nateglinide 60 mg tablet 60 mg PO TID BLOOD GLUCOSE 08/27/17 aspirin 81 mg chewable tablet 81 mg PO DAILY HEART HEALTH 06/26/18 cholecalciferol (vitamin D3) 125 mcg (5,000 unit) capsule 125 mcg PO DAILY SUPPLEMENT 04/01/22 liver supplement 1 cap PO QHS SUPPLEMENT 04/01/22 carvedilol 6.25 mg tablet 6.25 mg PO BID BP 05/23/22 hydralazine 50 mg tablet 100 mg PO TID BP 05/23/22 sodium chloride 0.65 % nasal spray aerosol (Deep Sea Nasal) 2 spray NASAL TID PRN PRN NASAL DRYNESS #0 mL 05/23/22 acetaminophen 500 mg tablet 1,000 mg PO Q6H PRN PRN Pain Score 1-5 #0 tabs 06/03/22 acetaminophen 500 mg tablet 1,000 mg PO QHS #0 tabs 06/03/22 amlodipine 10 mg tablet 10 mg PO DAILY@0800 30 days #30 tabs 06/03/22 ascorbic acid (vitamin C) 500 mg tablet 1,500 mg PO DAILY #0 tabs 06/03/22 furosemide 40 mg tablet 40 mg PO DAILY 30 days #30 tabs 06/03/22 lisinopril 20 mg tablet 20 mg PO DAILY 30 days #30 tabs 06/03/22 Hospital Course Operations None Procedures None Summary of Care Provided Minutes Spent on Discharge: 35 Hospital Course: 86 year old female with below past medical history hospitalized for acute respiratory failure with hypoxia secondary to acute diastolic congestive heart failure, complicated by hypertensive urgency, acute on chronic kidney injury, admitted to TCU with debility, here for rehabilitation, strengthening, prior to discharge home alone. Discharge home alone 06/06/2022, [facility] Care PT/OT/SN/GLOVER. Physical Exam Const alert General Appearance: cooperative HEENT normocephalic Eyes PERRL and EOMs intact bilaterally Neck supple, no JVD and no carotid bruits Resp normal respiratory effort, normal air movement and clear to auscultation bilaterally Cardio regular rate and regular rhythm GI normal to inspection, nondistended, normoactive bowel sounds, non-tender and non-distended Extremity normal capillary refill Extremity Narrative: 1+ pitting edema. General Extremity: Negative for edema Skin no rashes or lesions noted General Skin Exam: no breakdown Psych affect normal Appearance: appropriate Weight / BMI Weight Weight: 104.281 kg Body Mass Index (BMI) 43.7 ABG / Lab / Microbiology Data Result Diagrams: 05/31/22 05:27 05/31/22 05:27 Laboratory: Laboratory Results - last 24 hr 06/03/22 06:34: POC Glucose 122 H D/C Instructions Discharge Diet: No restrictions Discharge Activity: Return to Normal Activity, May Shower and Use Walker Weight Bearing Status: Weight bearing as tolerated Call your doctor if you observe: Fever of 101 or Higher, Inability to urinate, Inability to have a bowel movement, Shortness of breath, Dizziness, Fainting spells, Swelling in the ankles, Chest pain and Uncontrolled pain Additional Instructions: Discharge home alone 06/06/2022, [facility] Care PT/OT/SN/GLOVER. Please Follow Up With: Smooth Gutierrez [employer], [employer] When: As scheduled. Meaningful Use Info Meaningful Use Diagnoses (Choose all that apply): None applicable Discharge Plan Admission Admit Date/Time: 05/23/22 17:29 Primary Reason for Your Visit: Debility. Attending Provider: Lance Arevalo Chi Primary Care Provider: Martina Lal Consulting Providers: Jose Maria Hudson ; Buzz Duran Instructions Additional Instructions / Restrictions: Discharge home alone 06/06/2022, [facility] Care PT/OT/SN/GLOVER. Discharge Orders/Prescriptions Prescriptions: New acetaminophen 500 mg Tablet 1,000 mg PO Q6H PRN PRN (Reason: Pain Score 1-5) Qty: 0 0RF ascorbic acid (vitamin C) 500 mg Tablet 1,500 mg PO DAILY Qty: 0 0RF amlodipine 10 mg Tablet 10 mg PO DAILY@0800 30 Days Qty: 30 0RF acetaminophen 500 mg Tablet 1,000 mg PO QHS Qty: 0 0RF furosemide 40 mg Tablet 40 mg PO DAILY 30 Days Qty: 30 0RF lisinopril 20 mg Tablet 20 mg PO DAILY 30 Days Qty: 30 0RF Continued cholecalciferol (vitamin D3) 125 mcg (5,000 unit) capsule 125 mcg PO DAILY liver supplement 1 cap PO QHS latanoprost [Xalatan] 1 DROP bottle 1 drp EACH EYE QHS Label Comments: EYE HEALTH omega-3 fatty acids-fish oil 1 EACH capsule 1 ea PO DAILY Label Comments: supplement aspirin 81 mg tablet,chewable 81 mg PO DAILY Label Comments: PT'S LAST DOSE OF ASPIRIN WILL BE 04/26/2022 nateglinide 60 MG tablet 60 mg PO TID Label Comments: diabetes Rx Instructions: Give before meals Deep Sea Nasal 0.65 % Aerosol,[place] 2 spray NASAL TID PRN PRN (Reason: NASAL DRYNESS) Qty: 0 0RF carvedilol 6.25 mg tablet 6.25 mg PO BID Rx Instructions: must administer with a meal/food hydralazine 50 mg tablet 100 mg PO TID Rx Instructions: Hold for SBP less than 130 mmHg Discontinued lisinopril 20 mg tablet 20 mg PO BID Hold Instructions: Hold until serum creatinine on baseline. Label Comments: TAKE 1 TABLET BY MOUTH EVERY DAY ascorbic acid (vitamin C) 500 MG tablet 500 mg PO DAILY Label Comments: suppliment clonidine HCl 0.1 mg tablet 0.1 mg PO QHS acetaminophen 500 mg Tablet 1,000 mg PO Q8H PRN PRN (Reason: Pain 1-10 Or Fever) Qty: 0 0RF amlodipine 10 mg tablet 10 mg PO DAILY Rx Instructions: Hold for SBP less than 130 mmHg insulin lispro [Humalog KwikPen Insulin] 100 unit/mL insulin pen See Protocol subcut TIDAC Protocol: 3. Sliding Scale Insulin Med Dosing Condition: 150-189 mg/dl = 1 unit Condition: 190-229 mg/dl = 2 units Condition: 230-269 mg/dl = 3 units Condition: 270-309 mg/dl = 4 units Condition: 310-349 mg/dl = 5 units Condition: 350-399 mg/dl = 6 units Condition: 400-449 mg/dl = 7 units Condition: Greater than 449 call physician Protocol Text: - Use for Total Daily Dose of Insulin 37-55 units - Obsese, infected, or steroid patients MEDIUM DOSING ALGORITHIM Referrals / Follow Up: Martina Lal DO [Primary Care Provider] - Disposition Disposition (needs filled in before D/C Order can be placed): Home Health Service
[2022-06-03 20:23] VITALS: BP 142/53; PULSE 55
[2022-06-03] MEDS: Acetaminophen 500 MG Tablet 1000 MG PO (20:25)
[2022-06-03] MEDS: MELATONIN 3 MG TABLET PO (20:25)
[2022-06-03] MEDS: Latanoprost 0.005% 1 Bottle 1 DRP EACH EYE (20:26)
[2022-06-03 21:00] VITALS: PULSE 64; RESP 18; O2SAT 94
--- NOTE | 2022-06-04 00:22 | PCA ---
patient rang to go to bathroom, when marketing outreach coordinator went in she was still laying on her side. marketing outreach coordinator brought walker over and asked patient to sit up so marketing outreach coordinator can help her out of bed. patient started yelling saying she has a bad left shoulder and cant pull on things, patient then told marketing outreach coordinator to pull her up out of bed to which marketing outreach coordinator told her that they would not do that it would hurt their back, but will help them the best they could when she tried to get up. patient then got up to go to bathroom and yelled at marketing outreach coordinator saying I dont know how you have a job here, you're not very pleasant to patients like everyone else is. Scale Mechanic didnt say anything and just helped her into the bathroom and then into bed.
[2022-06-04 06:15] LABS: Albumin, Serum 2.8 g/dL (3.2-5.0); BUN 113 mg/dL (7-18); BUN/Creat Ratio 64.6 RATIO (10-20); Calcium,Total 9.6 mg/dL (8.5-10.1); Chloride 104 mmol/L (98-107); Creatinine, Serum 1.75 mg/dL (0.55-1.02); EST Glomerular Filtration Rate 29 mL/min (>60); Est Glom Filt Rate - Afr Amer 36 mL/min (>60); Estimated Creatinine Clearance 17.74 ml/min; Glucose 109 mg/dL (74-106); Phosphorus 3.4 mg/dL (2.5-4.9); Potassium 4.9 mmol/L (3.5-5.1); Sodium Level 135 mmol/L (136-145)
[2022-06-04 06:56] LABS: Bedside Glucose 120 mg/dL (74-106)
[2022-06-04 08:19] VITALS: BP 147/63; PULSE 60
[2022-06-04] MEDS: Carvedilol 6.25 MG Tablet PO ×2 (08:19→17:28)
[2022-06-04] MEDS: Juven (unflavored) Packet 1 PACKET PO ×2 (08:19→17:28)
[2022-06-04] MEDS: hydrALAZINE 50 MG Tablet 100 MG PO ×2 (08:19→20:43)
[2022-06-04] MEDS: Senna/Docusate Sodium 1 Tablet PO ×2 (08:19→17:29)
[2022-06-04] MEDS: amLODIPine 10 MG Tablet PO (08:19)
[2022-06-04] MEDS: Aspirin 81 MG TAB.CHEW PO (08:20)
[2022-06-04] MEDS: Menthol/Lanolin/Calamine/Znox 113 GM Tube 1 APPLIC TOPICAL ×2 (08:20→17:29)
[2022-06-04] MEDS: Cholecalciferol (Vit D3) 125 MCG CAPSULE (5,000 UNITS) 250 MCG PO (08:21)
[2022-06-04] MEDS: NATEGLINIDE 60 MG TABLET PO ×3 (08:21→17:28)
[2022-06-04] MEDS: Furosemide 40 MG Tablet PO (08:21)
[2022-06-04] MEDS: Ascorbic Acid 500 MG Tablet 1500 MG PO (08:21)
[2022-06-04] MEDS: Lisinopril 20 MG Tablet PO (08:22)
[2022-06-04] MEDS: Glucerna Shake 120 ML LIQUID PO ×3 (08:25→17:30)
--- NOTE | 2022-06-04 09:18 | NURSING ---
Spoke with Dr. Kwok's nurse, Ciara, notified her of patients current BUN level. Ciara to notify Dr. Kwok
[2022-06-04 10:00] VITALS: PULSE 62; RESP 20; O2SAT 97
[2022-06-04] MEDS: Nystatin Powder 15gm Bottle 1 APPLIC TOPICAL ×2 (11:06→20:34)
--- NOTE | 2022-06-04 11:09 | NURSING ---
Notified Dr. Arevalo pt c/o nausea, received order for Zofran 8mg q8hr PRN.
[2022-06-04] MEDS: Ondansetron ODT 4 MG Tablet 8 MG PO (11:22)
--- NOTE | 2022-06-04 11:34 | PCM.PN.BLA ---
Progress Note Patient evaluated resting comfortably in her bed. Right breast was assessed. Packing was removed. Tunneling has drastically decreased to 0.7 cm. Patient denies any pain/discomfort. There is no erythema noted. No signs of infection. Opening will be covered with gauze. No packing is needed at this time. Continue to hold off on showering at this time. I will reassess on prior to the patient being discharged. Patient will need to follow-up wit hour office next week for continued wound evaluation. Recommend changing the gauze dressing daily or more often due to drainage if needed. Patient will need to call our office to schedule an appointment for next week. Visit Charges Inpatient E&M: 92054 Subs Hosp L1 (post-op; no charge)
[2022-06-04 13:35] VITALS: BP 128/34; PULSE 51
[2022-06-04 15:36] VITALS: BP 138/42; PULSE 52; RESP 18; TEMP 36.6; O2SAT 94
--- NOTE | 2022-06-04 15:37 | NURSING ---
pt returned from [facility] with cardiology.
--- NOTE | 2022-06-04 16:44 | PCM.PN.BLA ---
Progress Note Recheck of serum creatinine today revealed elevated BUN of 113 mg/dL and serum creatinine of 1.75 mg/dL. BP is stable. We will stop FREIDA inhibitor for now and monitor BP. We will recheck renal function panel every day for the next 3 days. We will also check check CBC tomorrow since BUN is elevated out of proportion to rise in serum creatinine. Other causes of elevated BUN out of proportion to serum creatinine would include upper GI bleed. Jamel Mcintyre MD
--- NOTE | 2022-06-04 17:03 | NURSING ---
Received call from Dr. Hudson that he is discontinuing the lisinopril and rechecking renal panel tomorrow. Also staff is to encourage fluids.
[2022-06-04] MEDS: Acetaminophen 500 MG Tablet 1000 MG PO (20:34)
[2022-06-04] MEDS: MELATONIN 3 MG TABLET PO (20:34)
[2022-06-04] MEDS: Latanoprost 0.005% 1 Bottle 1 DRP EACH EYE (20:34)
[2022-06-04 20:43] VITALS: BP 140/40; PULSE 58
[2022-06-05 05:37] LABS: Basophil# 0.05 X10^3/uL; Basophil% 0.6 % (0-1); Eosinophils% 3.7 % (0-5); Hematocrit 33.2 % (37-47); Lymphocyte % 34.2 % (19-41); Mean Corp Hgb Conc 33.1 g/dL (32-36); Mean Corpuscular Volume 90.5 fL (81-99); Mean Platelet Vol. 10.5 fl (6.2-12.0); Monocyte% 12.2 % (0-10); NRBC Flagged by Analyzer 0 % (0-5); Neutrophil # 4.01 X10^3/uL (2.7-7.7); Neutrophil % 49.1 % (47-70); Platelet Count 231 K/mm3 (150-450); RBC Distribution Width CV 14.6 % (11.6-14.6); RBC Distribution Width SD 48.6 fl (35.1-43.9); Red Blood Count 3.67 M/mm3 (4.2-5.4); White Blood Count 8.2 K/mm3 (4.4-11.0)
[2022-06-05 06:48] LABS: Albumin, Serum 2.8 g/dL (3.2-5.0); BUN 120 mg/dL (7-18); EST Glomerular Filtration Rate 25 mL/min (>60); Est Glom Filt Rate - Afr Amer 30 mL/min (>60); Estimated Creatinine Clearance 15.52 ml/min; Glucose 128 mg/dL (74-106)
[2022-06-05 06:49] LABS: Calcium,Total 9.6 mg/dL (8.5-10.1); Chloride 105 mmol/L (98-107); Sodium Level 138 mmol/L (136-145)
[2022-06-05 06:55] LABS: Bedside Glucose 150 mg/dL (74-106)
--- NOTE | 2022-06-05 07:21 | NURSING ---
written communication left for Dr. Arevalo for AM rounds regarding BUN
[2022-06-05 08:42] VITALS: BP 131/38; PULSE 56
[2022-06-05] MEDS: amLODIPine 10 MG Tablet PO (08:43)
[2022-06-05] MEDS: Cholecalciferol (Vit D3) 125 MCG CAPSULE (5,000 UNITS) 250 MCG PO (08:43)
[2022-06-05] MEDS: Furosemide 40 MG Tablet PO (08:43)
[2022-06-05] MEDS: Aspirin 81 MG TAB.CHEW PO (08:43)
[2022-06-05] MEDS: Carvedilol 6.25 MG Tablet PO ×2 (08:43→17:30)
[2022-06-05] MEDS: Senna/Docusate Sodium 1 Tablet PO ×2 (08:43→17:30)
[2022-06-05] MEDS: Glucerna Shake 120 ML LIQUID PO ×3 (08:44→17:30)
[2022-06-05] MEDS: NATEGLINIDE 60 MG TABLET PO ×3 (08:44→17:30)
[2022-06-05] MEDS: Ascorbic Acid 500 MG Tablet 1500 MG PO (08:44)
[2022-06-05] MEDS: Juven (unflavored) Packet 1 PACKET PO ×2 (08:44→17:30)
--- NOTE | 2022-06-05 09:30 | PN.RENAL_ITS ---
Subjective Subjective Following for MALATHI on CKD. The patient denies chest pain or shortness of breath at rest. She still has edema of the lower extremities. There has been no nausea, vomiting or diarrhea. Objective Data Objective Data Vital Signs: Vital Signs Temp Pulse Resp BP Pulse Ox O2 Del Method O2 Flow Rate 97.9 F 56 L 18 131/38 H 94 Room Air 2 06/04/22 15:36 06/05/22 08:42 06/04/22 15:36 06/05/22 08:42 06/04/22 15:36 06/04/22 15:36 05/24/22 14:27 Oxygen Flow Rate (L/min) 2 Oxygen Delivery Method Room Air Weight: 104.014 kg Body Mass Index (BMI) 43.7 Intake & Output: Intake and Output for Last 24 Hours 06/03/22 06/04/22 06/05/22 23:59 23:59 23:59 Intake Total 1080 / 1080 720 / 720 Balance 1080 / 1080 720 / 720 Lab / Micro Data Result Diagrams: 06/05/22 05:15 06/05/22 05:15 Labs: Laboratory Results - last 24 hr 06/05/22 05:15: Sodium 138, Potassium 5.0, Chloride 105, Carbon Dioxide 27.0, BUN 120 H*, Creatinine 2.00 H, Estim Creat Clear Calc 15.52, Est GFR (MDRD) Af Amer 30 L, Est GFR (MDRD) Non-Af 25 L, BUN/Creatinine Ratio 60.0 H, Glucose 128 H, Calcium 9.6, Phosphorus 4.0, Albumin 2.8 L 06/05/22 05:15: WBC 8.2, RBC 3.67 L, Hgb 11.0 L, Hct 33.2 L, MCV 90.5, MCH 30.0, MCHC 33.1, RDW Std Deviation 48.6 H, RDW Coeff of Pedro 14.6, Plt Count 231, MPV 10.5, Immature Gran % (Auto) 0.200, Neut % (Auto) 49.1, Lymph % (Auto) 34.2, [place] % (Auto) 12.2 H, Eos % (Auto) 3.7, Baso % (Auto) 0.6, Absolute Neuts (auto) 4.0, Absolute Lymphs (auto) 2.80, Nucleated RBC % 0 06/05/22 06:22: POC Glucose 150 H Physical Exam Narrative General: Alert awake oriented x 3, no obvious distress Skin: No pallor no icterus Neck: No JVD Heart: Normal s1s2, no murmurs Lungs: Clear to auscultation bilaterally Abdomen: Soft, nontender, no organomegaly Extremities: 1+ edema, no cyanosis Assessment & Plan Assessment/Plan (1) Acute kidney injury: PLAN: The patient had MALATHI on CKD while she was admitted at the acute care side of the hospital. Serum creatinine peaked at 1.88 mg/dL on 05/23/2022. MALATHI was thought to be prerenal with gradual improvement of serum creatinine down to 1.43 mg/dL on 05/31/2022. The patient was restarted on lisinopril on 05/31/2022. Serum creatinine has increased since then. She is also on furosemide. I will stop FREIDA inhibitor and diuretic for now. However, the patient did get a dose of lisinopril on 06/04/2022. Will check urine indices today and recheck renal function again tomorrow. I asked the patient to push oral fluid/solute intake today. (2) Chronic kidney disease, stage 3a: PLAN: Prior to admission, baseline creatinine was between 1.3 (April 2022). In the acute care hospital, in the setting of diuresis, creatinine peaked around 1.88 on 05/23/2022. Abdominal imaging showed atrophic left kidney. Renal Dopplers from September of this year did not show any stenosis. (3) Hypertension: PLAN: BP is reasonably controlled today. Renal Doppler negative for any stenosis. On carvedilol 6.25 mg p.o. twice daily, heart rate is in the 50s, further dose increases are limited Hydralazine 100 mg p.o. 3 times daily, max dose Amlodipine 10 mg orally once a day, max dose We will hold furosemide and lisinopril and monitor BP and renal function closely. She was on clonidine which caused dry mouth, currently on hold PLAN: Plan Disposition: The patient tells me that she is scheduled to be discharged back home tomorrow. If renal function is stable or better tomorrow, I am okay with discharging the patient. I will arrange for outpatient follow-up for CKD and hypertension management in our [place] office.
--- NOTE | 2022-06-05 10:28 | NURSING ---
Dr. Mcintyre up to see pt in room. Would like us to encourage fluids d/t not wanting to give pt IV Fluids d/t Edema. Also, discontinued Lasix and BMP in AM.
--- NOTE | 2022-06-05 12:23 | MDS.RN ---
Information for the mds was obtained from review of the clinical record, interview of resident, staff, and direct observation of resident's care.
[2022-06-05] MEDS: Nystatin Powder 15gm Bottle 1 APPLIC TOPICAL ×2 (12:41→22:30)
[2022-06-05] MEDS: Menthol/Lanolin/Calamine/Znox 113 GM Tube 1 APPLIC TOPICAL ×2 (12:41→17:32)
[2022-06-05] MEDS: Ondansetron ODT 4 MG Tablet 8 MG PO (12:43)
[2022-06-05 14:26] VITALS: BP 153/40; PULSE 62; RESP 16; TEMP 36.4; O2SAT 96
[2022-06-05 14:30] VITALS: BP 153/40; PULSE 62
[2022-06-05] MEDS: hydrALAZINE 50 MG Tablet 100 MG PO ×2 (14:30→22:19)
--- NOTE | 2022-06-05 14:43 | RAD_ITS ---
STUDY: X-RAY - ABDOMEN/PELVIS REASON FOR EXAM: Female, 86 years old. Nausea TECHNIQUE: Single AP view of the abdomen / pelvis. COMPARISON: None. FINDINGS: There is a moderate amount of colonic fecal material. Prior cholecystectomy. Normal soft tissue structures. There are diffuse degenerative changes of the visualized lumbar spine. RAD/Abdomen Single View IMPRESSION: Moderate amount of fecal material is seen in the colon. Electronically Signed: Reid Hernandez MD at 15:34 EST ,
--- NOTE | 2022-06-05 14:44 | NURSING ---
Pt C/O of Nausea given PRN Zofran which was ineffective. BP 153/40 Pulse 62 T 97.2 temporal Pt states I feel dizzy/ light headed when standing and just feel like I have a Ulcer. Dr. Arevalo updated N.O. KUB. Will continue to monitor.
[2022-06-05 16:22] LABS: Urea Nitrogen, Urine 951 mg/dL (NO RANGE EST.); Urine Sodium 29 mmol/L (Not Establ.)
[2022-06-05 17:30] VITALS: BP 149/42; PULSE 58
[2022-06-05] MEDS: Lactulose 20 GM/30 ML UDC PO (17:32)
[2022-06-05] MEDS: MELATONIN 3 MG TABLET PO (22:18)
[2022-06-05] MEDS: Acetaminophen 500 MG Tablet 1000 MG PO (22:18)
[2022-06-05 22:19] VITALS: BP 140/40; PULSE 57
[2022-06-05] MEDS: Latanoprost 0.005% 1 Bottle 1 DRP EACH EYE (22:19)
[2022-06-05 22:30] VITALS: PULSE 58; RESP 18; O2SAT 92
[2022-06-06 06:36] LABS: BUN 118 mg/dL (7-18); Creatinine, Serum 2.01 mg/dL (0.55-1.02); Estimated Creatinine Clearance 15.44 ml/min; Glucose 108 mg/dL (74-106)
[2022-06-06 06:37] LABS: Albumin, Serum 2.8 g/dL (3.2-5.0); BUN/Creat Ratio 58.7 RATIO (10-20); Calcium,Total 9.6 mg/dL (8.5-10.1); Chloride 104 mmol/L (98-107); EST Glomerular Filtration Rate 25 mL/min (>60); Est Glom Filt Rate - Afr Amer 30 mL/min (>60); Phosphorus 3.6 mg/dL (2.5-4.9); Potassium 5.2 mmol/L (3.5-5.1); Sodium Level 136 mmol/L (136-145)
[2022-06-06 06:50] LABS: Bedside Glucose 101 mg/dL (74-106)
--- NOTE | 2022-06-06 09:38 | NURSING ---
Dr. Mcintyre paged d/t pts BUN and Creatinine and pt is to discharge home today d/t insurance cut.
--- NOTE | 2022-06-06 10:17 | PCM.PN.REN ---
Subjective Subjective Sitting in chair, no overnight events. No complaints. Daughter at bedside Objective Data Objective Data Vital Signs: Vital Signs Temp Pulse Resp BP Pulse Ox O2 Del Method O2 Flow Rate 97.5 F L 58 L 18 140/40 H 92 Room Air 2 06/05/22 14:26 06/05/22 22:30 06/05/22 22:30 06/05/22 22:19 06/05/22 22:30 06/05/22 22:30 05/24/22 14:27 Oxygen Flow Rate (L/min) 2 Oxygen Delivery Method Room Air Weight: 104.014 kg Body Mass Index (BMI) 43.7 Intake & Output: Intake and Output for Last 24 Hours 06/04/22 06/05/22 06/06/22 23:59 23:59 23:59 Intake Total 720 / 720 360 / 360 Balance 720 / 720 360 / 360 Lab / Micro Data Result Diagrams: 06/05/22 05:15 06/06/22 05:37 Labs: Laboratory Results - last 24 hr 06/05/22 15:05: Ur Random Sodium 29, Urine Creatinine 51.60, Urine Urea Nitrogen 951 06/06/22 05:37: Sodium 136, Potassium 5.2 H, Chloride 104, Carbon Dioxide 27.0, BUN 118 H*, Creatinine 2.01 H, Estim Creat Clear Calc 15.44, Est GFR (MDRD) Af Amer 30 L, Est GFR (MDRD) Non-Af 25 L, BUN/Creatinine Ratio 58.7 H, Glucose 108 H, Calcium 9.6, Phosphorus 3.6, Albumin 2.8 L 06/06/22 06:19: POC Glucose 101 Radiography Diagnostic Testing: Radiology Impression KUB X-Ray 06/05/22 14:43 IMPRESSION: Moderate amount of fecal material is seen in the colon. Electronically Signed: Reid Hernandez MD at 15:34 EST , Physical Exam Narrative General: Alert, awake oriented x 3, no obvious distress Skin: No pallor no icterus Neck: No JVD Heart: Normal s1s2, no murmurs Lungs: Clear to auscultation bilaterally Abdomen: Soft, nontender Extremities: traced b/l LE edema, no cyanosis Assessment & Plan Assessment/Plan (1) Acute kidney injury: PLAN: The patient had MALATHI on CKD while she was admitted at the acute care side of the hospital. Serum creatinine peaked at 1.88 mg/dL on 05/23/2022. MALATHI was thought to be prerenal with gradual improvement of serum creatinine down to 1.43 mg/dL on 05/31/2022. The patient was restarted on lisinopril on 05/31/2022. Serum creatinine has increased since then. She is also on furosemide. Off FREIDA inhibitor and diuretic and to continue holding both for now. Last lisinopril on 06/04/2022. Yesterday SCr 2.00mg/dL and again today SCr 2.01mg/dL/BUN 118 (BUN 120 yesterday). No acute indication for CHILD DAY CARE PROVIDER K+ 5.2, to get SPS today. I also reviewed with patient and daughter to limit potassium rich foods for a few days. I asked the patient to push oral fluid/solute intake (2) Chronic kidney disease, stage 3a: PLAN: Prior to admission, baseline creatinine was between 1.3 (April 2022). In the acute care hospital, in the setting of diuresis, creatinine peaked around 1.88 on 05/23/2022. Abdominal imaging showed atrophic left kidney. Renal Dopplers from September of this year did not show any stenosis. (3) Hypertension: PLAN: BP is reasonably controlled today. In September Renal Doppler negative for any stenosis but had repeat renal doppler today On carvedilol 6.25 mg p.o. twice daily, heart rate is in the 50s, further dose increases are limited Hydralazine 100 mg p.o. 3 times daily, max dose Amlodipine 10 mg orally once a day, max dose We will hold furosemide and lisinopril and monitor BP and renal function closely. Also reviewed importance of low sodium diet She was on clonidine which caused dry mouth, currently on hold PLAN: Plan Disposition: The patient is scheduled to be discharged back home today. Per renal okay with discharging the patient to home today and will arrange for outpatient follow-up for CKD and hypertension management in our [place] office. Will also check labs next week and before office appointment. Discussed this with both patient and daughter
[2022-06-06] MEDS: Cholecalciferol (Vit D3) 125 MCG CAPSULE (5,000 UNITS) 250 MCG PO (10:22)
[2022-06-06 10:23] VITALS: BP 160/40; PULSE 55
[2022-06-06] MEDS: Aspirin 81 MG TAB.CHEW PO (10:23)
[2022-06-06] MEDS: amLODIPine 10 MG Tablet PO (10:23)
[2022-06-06] MEDS: hydrALAZINE 50 MG Tablet 100 MG PO ×2 (10:23→14:57)
[2022-06-06] MEDS: Carvedilol 6.25 MG Tablet PO (10:23)
[2022-06-06] MEDS: Ascorbic Acid 500 MG Tablet 1500 MG PO (10:23)
[2022-06-06] MEDS: Juven (unflavored) Packet 1 PACKET PO (10:23)
[2022-06-06] MEDS: Glucerna Shake 120 ML LIQUID PO ×2 (10:29→14:57)
[2022-06-06] MEDS: Menthol/Lanolin/Calamine/Znox 113 GM Tube 1 APPLIC TOPICAL (10:30)
[2022-06-06] MEDS: Nystatin Powder 15gm Bottle 1 APPLIC TOPICAL (10:30)
[2022-06-06] MEDS: NATEGLINIDE 60 MG TABLET PO (13:06)
[2022-06-06] MEDS: Sodium Polystyrene Sulfonate 15 GM/60 ML UDC 30 GM PO (13:06)
[2022-06-06 14:57] VITALS: BP 148/45; PULSE 58
[2022-06-06 15:06] VITALS: BP 148/45; PULSE 57; RESP 17; TEMP 36.4; O2SAT 92
--- NOTE | 2022-06-06 15:35 | CASEMGMT ---
Social Work BIMS () and PHQ-9 (07/16) completed for MDS assessment. Citlaly Quigley, DISHWASHING MACHINE REPAIRER CLIENT SERVICES ANALYST
== END 2022-06-06 17:05 | disposition home health service (06) | DRG 291 ==
PROVIDERS: Internal Medicine Nephrology; Admitting Provider Family Medicine Geriatric Medicine; PCP Internal Medicine; Visit Provider Family Medicine Geriatric Medicine
DX: I13.0 Hypertensive heart and chronic kidney disease with heart failure and stage 1 through stage 4 chronic kidney disease, or unspecified chronic kidney disease (principal); I50.31 Acute diastolic (congestive) heart failure; E11.22 Type 2 diabetes mellitus with diabetic chronic kidney disease; E11.39 Type 2 diabetes mellitus with other diabetic ophthalmic complication; E55.9 Vitamin D deficiency, unspecified; B35.1 Tinea unguium; Z79.4 Long term (current) use of insulin; N18.31 Chronic kidney disease, stage 3a; E78.5 Hyperlipidemia, unspecified; K21.9 Gastro-esophageal reflux disease without esophagitis; G47.30 Sleep apnea, unspecified; M79.674 Pain in right toe(s); M79.675 Pain in left toe(s); H40.9 Unspecified glaucoma; Z79.82 Long term (current) use of aspirin; Z79.899 Other long term (current) drug therapy
CPT/HCPCS: 36415; 74018; 80048; 80069; 82570; 82962; 84300; 84540; 85025; 97110; 97116; 97162; 97166; 97530; 97535; 97802; A4216

== ENCOUNTER → 2022-06-06 | Outpatient (CLI) | payer MEDICARE, SELFPAY ==
--- NOTE | 2022-06-06 09:02 | RDU_ITS ---
Reason For Study: HYPERTENSION Right Renal Artery Left Renal Artery Right renal artery ostium Left renal artery ostium 132.7/23.8 161.2/16.0 RSV/EDV. PSV/EDV. Right renal artery proximal Left renal artery proximal PSV/EDV 125.1/18.6 PSV/EDV. 130.1/34.2 . Right renal artery mid 146.4/10.8 Left renal artery mid 127.7/27.2 PSV/EDV. PSV/EDV . Right renal artery distal Left renal artery distal 113.0/27.2 115.4/18.6 PSV/EDV. PSV/EDV. Right RAR 2.2. Left RAR 1.96. Right Renal Parenchyma Left Renal Parenchyma Upper Pole Medula 56.0/10.6 Left upper pole medulla 33.7/8.1 PSV/EDV. PSV/EDV . Right upper pole medulla EDR 0.20 . Left upper pole medulla EDR 0.20 . Right upper pole medulla R.I. Left upper pole medulla R.I. 0.76 . 0.81 . UP Cortex 25.5/7.2 PSV/EDV. Upper Randall Cortx 23.9/6.6 PSV/EDV. Left upper pole cortex EDR 0.30 . Right upper pole cortex EDR 0.3 . Left upper pole cortex R.I. 0.72 . Right upper pole cortex R.I. 0.73 . Left lower Pole medulla 31.9/8.1 Right lower Pole medulla 54.1/10.2 PSV/EDV . PSV/EDV . Left lower pole medulla EDR 0.30 . Right lower pole medulla EDR 0.20 . Left lower pole medulla R.I. 0.74 . Right lower pole medulla R.I. Lower Pole Cortx 24.6/9.0 PSV/EDV. 0.81 . Left lower pole cortex EDR 0.40 . Lower Pole Cortex 20.3/6.6 PSV/EDV. Left lower pole cortex R.I. 0.63 . Right lower pole cortex EDR 0.30 . Left Renal Hilar Right lower pole cortex R.I. 0.68 . LT Hilar avg 138.6/12.6 PSV/EDV . Right Renal Hilar Left hilar acceleration time 80 Right Hilar avg 123.1/14.7 PSV/EDV. m/sec. Right hilar acceleration time 30 Left Renal Dimensions m/sec. Left kidney size 9.8 cm . Right Renal Dimensions Left cortical dimension 1.15 cm . Right kidney size 10.20 cm . Right cortical dimension 1.48 cm . Aorta Proximal abdominal aorta 1.75 x 1.96 cm . Distal abdominal aorta 1.55 x 1.72 cm . Proximal abdominal aorta peak systolic velocity is 52.4 cm/sec . Distal abdominal aorta peak systolic velocity is 67.7 cm/sec . Procedures Technically difficult study due to bowel gas and body habitus. VL/Renal Artery Duplex Ultrasound Interpretation Summary Right renal artery patent with normal velocities. Left renal artery patent with normal velocities Right renal vein patent Left renal vein patent The right kidney is normal in size. The left kidney is normal in size. Ordering Physician: Martina Lal Referring Physician: Martina Lal Performed By: George Rader RVT
== END | disposition home or self-care (01) ==
PROVIDERS: PCP Internal Medicine; Referring Provider Internal Medicine; Visit Provider Internal Medicine
DX: I10 Essential (primary) hypertension (principal)
CPT/HCPCS: 93975

== ENCOUNTER 2022-06-08 10:38 | Outpatient (RCR) | payer MEDICARE, SELFPAY ==
[2022-06-08 11:39] LABS: Hematocrit 34.5 % (37-47); Hemoglobin 11.1 g/dL (12.0-15.0); Mean Corp Hgb Conc 32.2 g/dL (32-36); Mean Corpuscular Hgb 29.1 pg (27.0-32.0); Mean Corpuscular Volume 90.6 fL (81-99); Mean Platelet Vol. 11.1 fl (6.2-12.0); Platelet Count 230 K/mm3 (150-450); RBC Distribution Width CV 14.4 % (11.6-14.6); RBC Distribution Width SD 47.8 fl (35.1-43.9); Red Blood Count 3.81 M/mm3 (4.2-5.4); White Blood Count 7.5 K/mm3 (4.4-11.0)
[2022-06-08 11:54] LABS: ALB/GLOB Ratio 0.7 RATIO (0.9-2.4); AST(SGOT) 13 U/L (15-37); Alanine Aminotransfer ALT/SGPT 18 U/L (13-56); Albumin, Serum 2.9 g/dL (3.2-5.0); Alkaline Phosphatase 54 U/L (45-117); Anion Gap 4 (5-15); BUN 50 mg/dL (7-18); BUN/Creat Ratio 41.3 RATIO (10-20); Calcium,Total 9.9 mg/dL (8.5-10.1); Chloride 108 mmol/L (98-107); Creatinine, Serum 1.21 mg/dL (0.55-1.02); EST Glomerular Filtration Rate 45 mL/min (>60); Est Glom Filt Rate - Afr Amer 54 mL/min (>60); Glucose 114 mg/dL (74-106); Potassium 4.2 mmol/L (3.5-5.1); Protein, Total 6.9 g/dL (6.4-8.2); Sodium Level 141 mmol/L (136-145)
== END 2022-06-19 23:59 ==
LOC: LABSPEC 10:38
PROVIDERS: PCP Internal Medicine; Referring Provider Internal Medicine; Visit Provider Internal Medicine
DX: I10 Essential (primary) hypertension (principal)
CPT/HCPCS: 80053; 85027

== ENCOUNTER 2022-06-17 12:31 | Outpatient (RCR) | payer MEDICARE, SELFPAY ==
[2022-06-17 12:45] LABS: Absolute Neutrophil Count 4.1 X10^3/uL (2.0-7.7); Basophil# 0.05 X10^3/uL; Basophil% 0.6 % (0-1); Eosinophil# 0.22 X10^3/uL; Eosinophils% 2.5 % (0-5); Hematocrit 34.8 % (37-47); Hemoglobin 11.4 g/dL (12.0-15.0); Lymphocyte % 38.9 % (19-41); Mean Corp Hgb Conc 32.8 g/dL (32-36); Mean Corpuscular Hgb 29.8 pg (27.0-32.0); Mean Corpuscular Volume 90.9 fL (81-99); Mean Platelet Vol. 10.6 fl (6.2-12.0); Monocyte# 0.89 X10^3/uL; Monocyte% 10.2 % (0-10); NRBC Flagged by Analyzer 0 % (0-5); Neutrophil # 4.14 X10^3/uL (2.7-7.7); Neutrophil % 47.5 % (47-70); Platelet Count 208 K/mm3 (150-450); RBC Distribution Width CV 14.5 % (11.6-14.6); RBC Distribution Width SD 48.8 fl (35.1-43.9); Red Blood Count 3.83 M/mm3 (4.2-5.4); White Blood Count 8.7 K/mm3 (4.4-11.0)
[2022-06-17 13:01] LABS: Anion Gap 4 (5-15); BUN 24 mg/dL (7-18); BUN/Creat Ratio 20.9 RATIO (10-20); Calcium,Total 9.7 mg/dL (8.5-10.1); Chloride 104 mmol/L (98-107); Creatinine, Serum 1.15 mg/dL (0.55-1.02); EST Glomerular Filtration Rate 48 mL/min (>60); Est Glom Filt Rate - Afr Amer 58 mL/min (>60); Glucose 109 mg/dL (74-106); Potassium 4.4 mmol/L (3.5-5.1); Sodium Level 136 mmol/L (136-145)
== END 2022-06-19 18:00 | disposition home or self-care (01) ==
LOC: HHLAB 12:31
PROVIDERS: PCP Internal Medicine; Visit Provider Internal Medicine
DX: I13.0 Hypertensive heart and chronic kidney disease with heart failure and stage 1 through stage 4 chronic kidney disease, or unspecified chronic kidney disease (principal); I50.31 Acute diastolic (congestive) heart failure; E11.22 Type 2 diabetes mellitus with diabetic chronic kidney disease
CPT/HCPCS: 80048; 85025

== ENCOUNTER 2022-07-02 07:25 | Inpatient (IN) | payer MEDICARE, SELFPAY ==
[2022-07-02] VITALS (15 sets, daily range): BP systolic 114–184; BP diastolic 50–98; PULSE 51–65; RESP 14–18; TEMP 36.3–36.9; O2SAT 86–97; BMI 42.9; BMI 43.2
--- NOTE | 2022-07-02 07:51 | EKG12_ITS ---
Test Reason : HYPERTENSION Blood Pressure : / mmHG Vent. Rate : 060 BPM Atrial Rate : 060 BPM P-R Int : 216 ms QRS Dur : 086 ms QT Int : 422 ms P-R-T Axes : 038 026 061 degrees QTc Int : 422 ms Sinus rhythm with 1st degree A-V block Otherwise normal ECG Confirmed by RUPERTO LAINEZ, GEOVANNI ([id number]), publication editor MANASA EGAN ([id number]) on 07/03/2022 11:56:02 AM Referred By: Confirmed By:GEOVANNI HICKEY MD
--- NOTE | 2022-07-02 07:52 | EDS_ITS ---
HPI History of Present Illness Chief Complaint: Hypertension Narrative Narrative: 86-year-old female past medical history of hypertension presents with her daughter because of elevated blood pressure this morning. They state that she is on 3 or 4 medications for her high blood pressure. She was discharged from the TCU approximately a month ago. She started taking hydralazine which makes her very nauseated. Additionally, her daughter states that they are trying to work up her nausea while she was in the transitional care unit but never had a real reason why. This morning, before she took her multiple medications for her blood pressure, it was elevated in the 200s systolically. She took her medications which made her nauseated. She states she had a rough night daughter notes that she has been having elevated blood pressures in the morning. They recently added back her lisinopril. She also takes amlodipine. She denies any chest pain or shortness of breath. She does have past medical history of chronic renal failure, stage IIIa, but her creatinine has improved re cently to 1.0. She was told by her kidney doctor to take Lasix 20 mg once a day last evening, but she did not take it till this morning. She presents because of the shakiness and the nausea along with the reported elevated blood pressure over 200. [facility] Medical History Abnormal cardiac enzyme level Ambulates with cane Arthritis Bilateral carotid artery stenosis Bilateral extracranial carotid artery stenosis Breast abscess Breast cancer, right breast (~03/2022) Cancer CHF (congestive heart failure) Difficulty swallowing Encounter for education GERD (gastroesophageal reflux disease) History of edema History of IBS History of renal disease History of steroid therapy HLD (hyperlipidemia) HTN (hypertension) Hyperlipidemia Hypertension Infected seroma, postoperative Left adrenal mass Leg cramps Non-smoker PONV (postoperative nausea and vomiting) Shortness of breath on exertion Sleep apnea Stage 3a chronic kidney disease (CKD) Type 2 diabetes mellitus Wears glasses Wears hearing aid Home Medications latanoprost 0.005 % eye drops (Xalatan) 1 drp EACH EYE QHS Cataracts/Dry eye 07/29/14 [History Last Taken 09/24/18] omega-3 fatty acids-fish oil 300 mg-1,000 mg capsule 1 ea PO DAILY SUPPLEMENT 07/29/14 [History Last Taken 09/25/18] nateglinide 60 mg tablet 60 mg PO TID BLOOD GLUCOSE 08/27/17 [History Last Taken 09/25/18 08:00] aspirin 81 mg chewable tablet 81 mg PO DAILY HEART HEALTH 06/26/18 [History Last Taken 09/24/18] cholecalciferol (vitamin D3) 125 mcg (5,000 unit) capsule 125 mcg PO DAILY SUPPLEMENT 04/01/22 [History Last Taken Unknown] liver supplement 1 cap PO QHS SUPPLEMENT 04/01/22 [History Last Taken Unknown] carvedilol 6.25 mg tablet 6.25 mg PO BID BP 05/23/22 [History Last Taken Unknown] hydralazine 50 mg tablet 100 mg PO TID BP 05/23/22 [History Last Taken Unknown] sodium chloride 0.65 % nasal spray aerosol (Deep Sea Nasal) 2 spray NASAL TID PRN PRN NASAL DRYNESS #0 mL 05/23/22 [Rx Last Taken Unknown] acetaminophen 500 mg tablet 1,000 mg PO Q6H PRN PRN Pain Score 1-5 #0 tabs 1 08/03/21 [Rx Last Taken Unknown] amlodipine 10 mg tablet 10 mg PO DAILY@0800 30 days #30 tabs 06/03/22 [Rx Last Taken Unknown] ascorbic acid (vitamin C) 500 mg tablet 1,500 mg PO DAILY #0 tabs 06/03/22 [Rx Last Taken Unknown] melatonin 3 mg capsule 3 mg PO HS PRN 06/04/22 [History Last Taken Unknown] Colloidal Silver PO DAILY 06/11/22 [History Last Taken Unknown] cinnamon bark 500 mg capsule (Cinnamon) 500 mg PO DAILY 06/11/22 [History Last Taken Unknown] famotidine 20 mg tablet (Pepcid) 20 mg PO DAILY 06/11/22 [History Last Taken Unknown] ondansetron 4 mg disintegrating tablet 4 mg PO Q4H 06/11/22 [History Last Taken Unknown] anastrozole 1 mg tablet 1 mg PO DAILY #90 tabs 06/18/22 [Rx Last Taken Unknown] amlodipine 5 mg tablet 10 mg PO DAILY 07/02/22 [History Last Taken Unknown] famotidine 20 mg tablet (Pepcid) 20 mg PO DAILY 07/02/22 [History Last Taken Unknown] furosemide 20 mg tablet 20 mg PO DAILY 07/02/22 [History Last Taken Unknown] lisinopril 20 mg tablet 20 mg PO DAILY 07/02/22 [History Last Taken Unknown] lorazepam 0.5 mg tablet 0.5 mg PO DAILY PRN Anxiety 07/02/22 [History Last Taken Unknown] Allergy/AdvReac Type Severity Reaction Status Date / Time morphine AdvReac Intermediate mental Verified 07/02/22 07:28 status change meperidine HCl [From Demerol] AdvReac Mild mental Verified 07/02/22 07:28 status change Family History Brother Pancreatic cancer Diabetes Heart disease Lung cancer Hypertension Colon cancer Mother Hypertension Brother No problems noted. 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 Elevated blood pressure. Shakiness. HEENT: No sore throat. No neck pain. No loss of vision. No rhinorrhea. Cardiovascular: No chest pain. No palpitations. No pedal edema. Respiratory: No cough, no shortness of breath. Abdominal: No abdominal pain. Positive nausea. No vomiting. Genitourinary: No dysuria. No hematuria. Musculoskeletal: No myalgias. No arthralgias. Neurologic: No headaches. No dizziness. No lightheadedness. Skin: No rash. No change in color. Psychiatric: No depression. No anxiety. EXAM Physical Exam Narrative Exam Narrative: Afebrile. Vital signs noted. HEENT: Normocephalic. Atraumatic. PERRL, EOMI. Neck soft and supple. No point tenderness or step off. Cardiovascular: Regular rate and rhythm. No murmurs, rubs, or gallops appreciated. Respiratory: No tachypnea. Lungs clear to auscultation bilaterally. Gastrointestinal: Abdomen soft, nontender, with normoactive bowel sounds. No rebound or guarding. Neurological: Awake. Alert. Nonfocal, nonlateralizing. Skin: No rash. Normal color. No pallor. Musculoskeletal: No pedal edema. Full range of motion extremities. Const Vital Signs: 07/02/22 07:26 07/02/22 07:51 07/02/22 08:55 Temperature 98.2 F Temperature Source Temporal Pulse Rate 65 Respiratory Rate 16 Respiratory Effort Normal Non-Labored Respiratory Pattern Normal Blood Pressure 178/54 H 161/58 H Blood Pressure Mean 95 92 Pulse Ox 95 Oxygen Delivery Method Room Air Oxygen Flow Rate (L/min) 07/02/22 10:17 07/02/22 10:17 07/02/22 11:17 Temperature Temperature Source Pulse Rate 58 L 57 L Respiratory Rate 16 14 Respiratory Effort Respiratory Pattern Blood Pressure 161/58 H 184/62 H Blood Pressure Mean 92 102 Pulse Ox 86 94 97 Oxygen Delivery Method Room Air Nasal Cannula Nasal Cannula Oxygen Flow Rate (L/min) 2 2.5 07/02/22 11:20 Temperature 98.5 F Temperature Source Oral Pulse Rate Respiratory Rate Respiratory Effort Respiratory Pattern Blood Pressure Blood Pressure Mean Pulse Ox Oxygen Delivery Method Oxygen Flow Rate (L/min) MDM MDM MDM Narrative Medical decision making narrative: Blood pressure is currently 178/54. I will check basic laboratory work. She was administered ondansetron intravenously. EKG interpreted by myself demonstrates normal sinus rhythm with first-degree AV block at 60 bpm without ectopy or acute ST changes. No STEMI. No significant change from previous. CBC shows normal white count of 8.5, hemoglobin normal at 12.3, platelet count normal at 272. Electrolyte panel shows a BUN of 21 with a creatinine of 1.25, consistent with her chronic kidney disease. AST and ALT are grossly unremarkable except for an AST low at 12. Urinalysis shows negative ketones and no evidence of infection with 0 WBCs. I do not feel that antibiotics are indicated. Her blood pressure is labile and it elevated to 187 systolic after being low. She was administered the ondansetron for her nausea which she takes at home. She feels that it is the hydralazine that is causing her problems. Per RN, when she ambulated to the bathroom, she became hypoxic in the high 80s and does not wear oxygen at home. She was placed on 2 L nasal cannula oxygen. I obtained a chest x-ray and interpreted it. My interpretation shows bilateral atelectasis. This may be fluffy infiltrates from CHF as her daughter states that when she was in the TCU she was diagnosed with CHF and hence she occasionally will take Lasix as recommended also by her administrative support coordinator. I added a BNP. Given her hypoxia and labile blood pressure, I discussed the patient with Dr. Gamez for observation in the PCU. She requested that I obtain respiratory swabs. These are pending. Disposition is observed in PCU in stable condition. Lab Data Attestation: I reviewed the patient's lab results. Labs: Laboratory Results - last 24 hr 07/02/22 07/02/22 07/02/22 08:11 08:11 10:15 WBC 8.5 RBC 4.12 L Hgb 12.3 Hct 36.9 L MCV 89.6 MCH 29.9 MCHC 33.3 RDW Std Deviation 46.8 H RDW Coeff of Pedro 14.2 Plt Count 272 MPV 10.0 Immature Gran % (Auto) 0.200 Neut % (Auto) 57.9 Lymph % (Auto) 30.0 [place] % (Auto) 8.8 Eos % (Auto) 2.4 Baso % (Auto) 0.7 Absolute Neuts (auto) 4.9 Absolute Lymphs (auto) 2.55 Nucleated RBC % 0 Sodium 136 Potassium 4.4 Chloride 105 Carbon Dioxide 26.0 Anion Gap 5 BUN 21 H Creatinine 1.25 H Estim Creat Clear Calc 24.83 Est GFR (MDRD) Af Amer 52 L Est GFR (MDRD) Non-Af 43 L BUN/Creatinine Ratio 16.8 Glucose 149 H Calcium 10.1 Total Bilirubin 1.10 H AST 12 L ALT 24 Alkaline Phosphatase 67 Total Protein 7.2 Albumin 3.3 Globulin 3.9 Albumin/Globulin Ratio 0.8 L Urine Color Yellow Urine Clarity Clear Urine pH 6.5 Ur Specific Erwin 1.010 Urine Protein Negative Urine Glucose (UA) Normal Urine Ketones Negative Urine Occult Blood Negative Urine Nitrite Negative Urine Bilirubin Negative Urine Urobilinogen Normal Ur Leukocyte Esterase 25 H Urine RBC 0 SEEN Urine WBC 0 SEEN Ur Squamous Epith Cells 0-5 SEEN Urine Bacteria 0 SEEN Urine Mucus 0 SEEN Radiography Diagnostic Testing: Clinical Impression(s) from Imaging Studies Chest X-Ray 07/02/22 10:40 IMPRESSION: Poor inspiration with some bibasilar atelectasis. Electronically Signed: Justyn Alcala MD at 10:52 EST , Discharge Plan Dx/Rx/DC Orders Clinical Impression: Labile blood pressure, Hypoxia, Shakiness, Nausea Disposition Disposition: Acute Care Hospital [facility]
[2022-07-02 08:19] LABS: Absolute Lymphocyte Count 2.55 X10^3/uL (0.83-4.51); Absolute Neutrophil Count 4.9 X10^3/uL (2.0-7.7); Basophil# 0.06 X10^3/uL; Basophil% 0.7 % (0-1); Eosinophils% 2.4 % (0-5); Hematocrit 36.9 % (37-47); Hemoglobin 12.3 g/dL (12.0-15.0); Lymphocyte # 2.55 X10^3/ul (0.83-4.51); Mean Corp Hgb Conc 33.3 g/dL (32-36); Mean Corpuscular Hgb 29.9 pg (27.0-32.0); Mean Corpuscular Volume 89.6 fL (81-99); Monocyte# 0.75 X10^3/uL; Monocyte% 8.8 % (0-10); NRBC Flagged by Analyzer 0 % (0-5); Neutrophil # 4.91 X10^3/uL (2.7-7.7); Neutrophil % 57.9 % (47-70); Platelet Count 272 K/mm3 (150-450); RBC Distribution Width CV 14.2 % (11.6-14.6); RBC Distribution Width SD 46.8 fl (35.1-43.9); Red Blood Count 4.12 M/mm3 (4.2-5.4); White Blood Count 8.5 K/mm3 (4.4-11.0)
[2022-07-02 08:31] LABS: ALB/GLOB Ratio 0.8 RATIO (0.9-2.4); AST(SGOT) 12 U/L (15-37); Alanine Aminotransfer ALT/SGPT 24 U/L (13-56); Albumin, Serum 3.3 g/dL (3.2-5.0); Alkaline Phosphatase 67 U/L (45-117); Anion Gap 5 (5-15); BUN 21 mg/dL (7-18); BUN/Creat Ratio 16.8 RATIO (10-20); Calcium,Total 10.1 mg/dL (8.5-10.1); Chloride 105 mmol/L (98-107); Creatinine, Serum 1.25 mg/dL (0.55-1.02); EST Glomerular Filtration Rate 43 mL/min (>60); Est Glom Filt Rate - Afr Amer 52 mL/min (>60); Estimated Creatinine Clearance 24.83 ml/min; Globulin 3.9 g/dL (2.2-4.2); Glucose 149 mg/dL (74-106); Potassium 4.4 mmol/L (3.5-5.1); Protein, Total 7.2 g/dL (6.4-8.2); Sodium Level 136 mmol/L (136-145)
[2022-07-02] MEDS: Ondansetron 4 MG/2 ML Vial IV (08:32)
[2022-07-02 10:19] LABS: Bacteria 0 SEEN /hpf (None Seen); Mucous, Urine 0 SEEN /hpf (<or=2+); Red Blood Cells-Urine 0 SEEN /hpf (0-5); White Blood Cells 0 SEEN /hpf (0-5)
[2022-07-02 10:29] LABS: Color, Urine Yellow (Yellow); Glucose, Dipstick Normal (Normal); Ketone-Dipstick Negative (Negative); Leukocyte Esterase-Dipstick 25 /ul (Negative); Nitrite-Dipstick Negative (Negative); Occult Blood-Urine Negative /ul (Negative); Protein-Dipstick Negative (Negative); Urine Bilirubin Dipstick Negative (Negative); Urine Clarity Clear (Clear); Urine Urobilinogen Normal (Normal); Urine pH 6.5 (5.0 - 8.0)
[2022-07-02 10:40] LABS: Squamous Epithelial Cells - UA 0-5 SEEN /hpf (5-10)
--- NOTE | 2022-07-02 10:40 | RAD_ITS ---
STUDY: X-RAY CHEST REASON FOR EXAM: Female, 86 years old. shortness of breath TECHNIQUE: Single AP portable view of the chest. COMPARISON: 05/19/2022 FINDINGS: Poor inspiration with some bibasilar atelectasis There is no demonstrated pleural abnormality. There is moderate cardiac enlargement. Normal mediastinum and tomasa. Normal visualized pulmonary arteries. Normal visualized aortic arch and descending thoracic aorta. Normal visualized thoracic spine. Normal visualized ribs, clavicles, and shoulders. There is no demonstrated abnormality of the visualized soft tissue structures of the upper abdomen. RAD/Chest 1 View (Portable) IMPRESSION: Poor inspiration with some bibasilar atelectasis. Electronically Signed: Justyn Alcala MD at 10:52 [facility] ,
--- NOTE | 2022-07-02 11:34 | HP.PCM_ITS ---
HPI - General General Date of Admission: 07/02/22 Date of Service: 07/02/22 Chief Complaint: elevated blood pressure HPI Narrative DEBBIE KENNEY, is a 86 F with a PMh as outlined who presents via the ED on 07/02/2022 with a complaint of elevated blood pressure. She also had shakiness of her extremities and nausea. She said her nausea was exacerbated by hydralazine which she was taking for elevated blood pressure. She claims compliance with medication and states that hydralazine dose was recently increased because of poorly controlled blood pressure. She denied any chest pain, palpitations, dizziness, abdominal pain or diarrhea. Daughter had a blood pressure log and showed that over the past several days her blood pressure has been in the 180s and 190s systolic. She was also noted to be hypoxic in the ED requiring 3 L of oxygen. Daughter said patient had lower extremity swelling which she had been told was about 2+ by patient's home nurse. Patient denied any history of heart failure and states she had been placed on Lasix as needed by her emergency crew supervisor and said it was as needed because of a CKD stage III. Vitals with temperature of 97.3 Fahrenheit with pulse rate of 59, blood pressure 151/57 and respiratory rate of 16. She was saturating at 94% on 2 L of oxygen. CBC and BMP were unremarkable and BNP was 228. Urinalysis showed no evidence of UTI. Chest x-ray showed poor inspiration and some bibasilar atelectasis. She has been admitted to be managed for poorly controlled blood pressure and hypoxia. [facility] Medical History Abnormal cardiac enzyme level Ambulates with cane Arthritis Bilateral carotid artery stenosis Bilateral extracranial carotid artery stenosis Breast abscess Breast cancer, right breast (~03/2022) Cancer CHF (congestive heart failure) Difficulty swallowing Encounter for education GERD (gastroesophageal reflux disease) History of edema History of IBS History of renal disease History of steroid therapy HLD (hyperlipidemia) HTN (hypertension) Hyperlipidemia Hypertension Infected seroma, postoperative Left adrenal mass Leg cramps Non-smoker PONV (postoperative nausea and vomiting) Shortness of breath on exertion Sleep apnea Stage 3a chronic kidney disease (CKD) Type 2 diabetes mellitus Wears glasses Wears hearing aid Home Medications latanoprost 0.005 % eye drops (Xalatan) 1 drp EACH EYE QHS Cataracts/Dry eye 07/29/14 [History Last Taken 07/01/22] omega-3 fatty acids-fish oil 300 mg-1,000 mg capsule 1 ea PO DAILY SUPPLEMENT 0 07/29/14 [History Last Taken 07/01/22] nateglinide 60 mg tablet 60 mg PO TID BLOOD GLUCOSE 08/27/17 [History Last Taken 07/01/22] aspirin 81 mg chewable tablet 81 mg PO DAILY HEART HEALTH 06/26/18 [History Last Taken 07/02/22] cholecalciferol (vitamin D3) 125 mcg (5,000 unit) capsule 125 mcg PO DAILY SUPPLEMENT 04/01/22 [History Last Taken 07/01/22] liver supplement 1 cap PO QHS SUPPLEMENT 04/01/22 [History Last Taken 07/01/22] carvedilol 6.25 mg tablet 6.25 mg PO BID blood pressure 05/23/22 [History Last Taken 07/01/22] hydralazine 50 mg tablet 100 mg PO TID blood pressure 05/23/22 [History Last Taken 07/02/22] sodium chloride 0.65 % nasal spray aerosol (Deep Sea Nasal) 2 spray NASAL TID PRN PRN NASAL DRYNESS #0 mL 05/23/22 [Rx Last Taken Unknown] melatonin 3 mg capsule 3 mg PO HS PRN Sleep 06/04/22 [History Last Taken Unknown] Colloidal Silver 1 tsp PO DAILY SUPPLEMENT 06/11/22 [History Last Taken 07/01/22] cinnamon bark 500 mg capsule (Cinnamon) 500 mg PO DAILY SUPPLEMENT 06/11/22 [H istory Last Taken 07/01/22] ondansetron 4 mg disintegrating tablet 4 mg PO UD PRN nausea/vomiting 06/11/22 [History Last Taken Unknown] anastrozole 1 mg tablet 1 mg PO DAILY #90 tabs 06/18/22 [Rx Last Taken Unknown] acetaminophen 500 mg tablet 1,000 mg PO Q6H PRN Pain 07/02/22 [History Last Taken 06/28/22] amlodipine 10 mg tablet 10 mg PO DAILY blood pressure 07/02/22 [History Last Taken 07/02/22] ascorbic acid (vitamin C) 500 mg tablet 500 mg PO BID supplement 07/02/22 [History Last Taken 07/01/22] famotidine 20 mg tablet (Pepcid) 20 mg PO DAILY acid reflux 07/02/22 [History Last Taken 07/01/22] furosemide 40 mg tablet 40 mg PO DAILY FLUID 07/02/22 [History Last Taken 07/02/22] lisinopril 20 mg tablet 20 mg PO DAILY BLOOD PRESSURE 07/02/22 [History Last Taken 07/01/22] lorazepam 0.5 mg tablet 0.5 mg PO DAILY PRN Anxiety 07/02/22 [History Last Taken 07/02/22] polyethylene glycol 3350 17 gram oral powder packet 17 g PO QHS STOOL 07/02/22 [History Last Taken 07/01/22] Allergy/AdvReac Type Severity Reaction Status Date / Time morphine AdvReac Intermediate mental Verified 07/02/22 07:28 status change meperidine HCl [From Demerol] AdvReac Mild mental Verified 07/02/22 07:28 status change Family History Brother Pancreatic cancer Diabetes Heart disease Lung cancer Hypertension Colon cancer Mother Hypertension Brother No problems noted. 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 housing: house Smoking Status: Never smoker alcohol intake: never substance use type: does not use what type of physical activity do you participate in: none seatbelt use: always do you feel safe at home: Yes ROS Constitutional Constitutional: Reports fatigue, malaise and weakness; Denies anorexia, change in weight, chills or fever(s) Eyes Eyes: Denies change in vision ENT HEENT: Denies dysphagia, headache(s), nasal congestion or sore throat Cardiovascular Cardiovascular: Reports edema; Denies chest pain, orthopnea, palpitations, paroxysmal nocturnal dyspnea or syncope Respiratory/Chest Respiratory/Chest: Reports shortness of breath with exertion; Denies cough, shortness of breath at rest or wheezing Gastrointestinal Gastrointestinal: Reports nausea; Denies abdominal pain, diarrhea or vomiting Genitourinary Genitourinary: Denies dysuria, hematuria or urinary frequency Musculoskeletal Musculoskeletal: Denies back pain, extremity pain, muscle weakness or neck pain Integumentary Integumentary: Reports dry skin Neurologic Neurologic: Denies confusion, dizziness, focal weakness, headache(s), lack of coordination, seizures, tingling, tremor(s) or weakness Psychiatric Psychiatric: Denies anxiety Vital Signs Vital Signs Vital Signs: 07/02/22 07:26 07/02/22 07:51 07/02/22 08:55 Temperature 98.2 F Temperature Source Temporal Pulse Rate 65 Respiratory Rate 16 Respiratory Effort Normal Non-Labored Respiratory Pattern Normal Blood Pressure 178/54 H 161/58 H Blood Pressure Mean 95 92 Pulse Ox 95 Oxygen Delivery Method Room Air Oxygen Flow Rate (L/min) 07/02/22 10:17 07/02/22 10:17 07/02/22 11:17 Temperature Temperature Source Pulse Rate 58 L 57 L Respiratory Rate 16 14 Respiratory Effort Respiratory Pattern Blood Pressure 161/58 H 184/62 H Blood Pressure Mean 92 102 Pulse Ox 86 94 97 Oxygen Delivery Method Room Air Nasal Cannula Nasal Cannula Oxygen Flow Rate (L/min) 2 2.5 07/02/22 11:20 Temperature 98.5 F Temperature Source Oral Pulse Rate Respiratory Rate Respiratory Effort Respiratory Pattern Blood Pressure Blood Pressure Mean Pulse Ox Oxygen Delivery Method Oxygen Flow Rate (L/min) Weight Weight: 227 lb Body Mass Index (BMI) 42.9 Physical Exam Const alert, oriented x3 and no apparent distress Constitutional Narrative: obese General Appearance: cooperative HEENT normocephalic, head/scalp atraumatic, EAC's normal and moist oral mucous membranes Eyes PERRL and EOMs intact bilaterally Resp Resp Narrative: diminished breath sounds bibasally, few crackles bibasally, no crackles. On 2L of oxygen by nasal canula Cardio regular rate, regular rhythm, S1 normal heart sound, S2 normal heart sound and no murmurs GI normal to inspection, nondistended, normoactive bowel sounds, soft to palpation, non-tender and non-distended Extremity normal capillary refill, no clubbing, cyanosis or edema and no calf tenderness Skin General Skin Exam: no breakdown Neuro CN's II-XII intact bilaterally, no focal motor deficits and no sensory deficits noted Motor Exam: strength 5/5 throughout and general weakness Psych thought process normal Results Lab / Micro Data Result Diagrams: 07/02/22 08:11 07/02/22 08:11 Labs: Laboratory Results - last 24 hr 07/02/22 08:11: WBC 8.5, RBC 4.12 L, Hgb 12.3, Hct 36.9 L, MCV 89.6, MCH 29.9, MCHC 33.3, RDW Std Deviation 46.8 H, RDW Coeff of Pedro 14.2, Plt Count 272, MPV 10.0, Immature Gran % (Auto) 0.200, Neut % (Auto) 57.9, Lymph % (Auto) 30.0, [place] % (Auto) 8.8, Eos % (Auto) 2.4, Baso % (Auto) 0.7, Absolute Neuts (auto) 4.9, Absolute Lymphs (auto) 2.55, Nucleated RBC % 0 07/02/22 08:11: Sodium 136, Potassium 4.4, Chloride 105, Carbon Dioxide 26.0, Anion Gap 5, BUN 21 H, Creatinine 1.25 H, Estim Creat Clear Calc 24.83, Est GFR (MDRD) Af Amer 52 L, Est GFR (MDRD) Non-Af 43 L, BUN/Creatinine Ratio 16.8, Glucose 149 H, Calcium 10.1, Total Bilirubin 1.10 H, AST 12 L, ALT 24, Alkaline Phosphatase 67, Total Protein 7.2, Albumin 3.3, Globulin 3.9, Albumin/Globulin Ratio 0.8 L 07/02/22 10:15: Urine Color Yellow, Urine Clarity Clear, Urine pH 6.5, Ur Specific [place] 1.010, Urine Protein Negative, Urine Glucose (UA) Normal, Urine Ketones Negative, Urine Occult Blood Negative, Urine Nitrite Negative, Urine Bilirubin Negative, Urine Urobilinogen Normal, Ur Leukocyte Esterase 25 H, Urine RBC 0 SEEN, Urine WBC 0 SEEN, Ur Squamous Epith Cells 0-5 SEEN, Urine Bacteria 0 SEEN, Urine Mucus 0 SEEN Radiology Impression Chest X-Ray 07/02/22 10:40 IMPRESSION: Poor inspiration with some bibasilar atelectasis. Electronically Signed: Justyn Alcala MD at 10:52 EST , Assessment & Plan Assessment/Plan (1) Uncontrolled hypertension: PLAN: Plan #Poorly controlled hypertension * Blood pressure was up in the 190s on admission. * She states has been compliant with her medications but the hydralazine makes her feel nauseous. * On amlodipine and carvedilol as well as hydralazine. We will hold hydralazine for now but she says it makes her dizzy. We will increase carvedilol to 25 mg twice daily. * BNP mildly elevated at 228. Will give IV Lasix and continue lisinopril 20 mg daily. * IV hydralazine as needed * #Hypoxia: * Chest x-ray showed atelectasis but BNP is mildly elevated and in setting of bilateral lower extremity edema, there may be some fluid overload. * We will start on IV Lasix 40 mg daily and monitor urine output. * Respiratory panel ordered and COVID as well as flu ordered. #Type 2 diabetes mellitus: * We will not take the night. * Insulin sliding scale. * Accu-Cheks AC at bedtime #Acute on chronic HFpEF * BNP mildly activated. Has EF of around 60% with stage II diastolic dysfunction. * Being diuresed with IV Lasix 40 mg daily. * #History of breast cancer s/p lumpectomy. On anastrozole #CKD stage III: Creatinine at baseline. Will monitor. #DVT prophylaxis: Lovenox renally dosed CODE STATUS: DNR CCA no intubation * Patient and daughter counseled extensively about different types of CODE STATUS including full code, DNR CCA and DNR CCA. Patient clearly elects to be DNRCCA no intubation. * Daughter was trying to convince her mother to be full code but patient adamantly stated that she did not want any CPR or intubation under any circumstances but would want everything else done otherwise and expressed clear understanding that she wanted to be DNR CCA no intubation. * Total acgy-ay-nbbf time 17 minutes. Charges/Coding Visit Charges Inpatient E&M: 55632 Init Hosp L3 Procedures Hospitalists Procedures: 38540 Advncd Care Plan 30 Min
--- NOTE | 2022-07-02 11:43 | NURSING ---
PCU KORAM HYPOXIA, SHAKINESS, LABILE BLOOD PRESSURE
[2022-07-02 11:51] LABS: BNP,B-Type NATRIURETIC PEPTIDE 228.1 pg/mL (0-100)
[2022-07-02] MEDS: hydrALAZINE 50 MG Tablet 100 MG PO ×2 (14:37→21:36)
[2022-07-02 14:51] LABS: Troponin-I HS 15 pg/mL (3.0-54.0)
[2022-07-02 16:57] LABS: Troponin-I HS 15 pg/mL (3.0-54.0)
[2022-07-02] MEDS: NATEGLINIDE 60 MG TABLET PO (18:15)
[2022-07-02] MEDS: Furosemide 40 MG/4 ML Vial IV (18:15)
[2022-07-02] MEDS: Ipratropium/Albuterol Sulfate 3 ML AMPUL.NEB INHALATION (20:07)
[2022-07-02 21:33] LABS: Troponin-I HS 14 pg/mL (3.0-54.0)
[2022-07-02] MEDS: Carvedilol 6.25 MG Tablet PO (21:38)
[2022-07-02] MEDS: Latanoprost 0.005% 1 Bottle 1 DRP EACH EYE (21:45)
[2022-07-02 22:10] LABS: Bedside Glucose 114 mg/dL (74-106)
[2022-07-03] VITALS (16 sets, daily range): BP systolic 129–152; BP diastolic 45–54; PULSE 55–60; RESP 16–21; TEMP 36.6–36.7; O2SAT 84–96
--- NOTE | 2022-07-03 04:35 | EKG12_ITS ---
Test Reason : AM EKG Blood Pressure : / mmHG Vent. Rate : 061 BPM Atrial Rate : 061 BPM P-R Int : 218 ms QRS Dur : 088 ms QT Int : 408 ms P-R-T Axes : 068 028 069 degrees QTc Int : 410 ms Sinus rhythm with 1st degree A-V block Otherwise normal ECG Confirmed by MARTINEZ LAINEZ, FREEMAN ([id number]), newspaper editor MANASA EGAN ([id number]) on 07/03/2022 11:14:36 AM Referred By: Confirmed By:FREEMAN HENRIQUEZ MD
[2022-07-03 07:05] LABS: Bedside Glucose 116 mg/dL (74-106)
[2022-07-03 07:30] LABS: Absolute Lymphocyte Count 3.15 X10^3/uL (0.83-4.51); Absolute Neutrophil Count 4.6 X10^3/uL (2.0-7.7); Basophil# 0.04 X10^3/uL; Basophil% 0.4 % (0-1); Eosinophil# 0.19 X10^3/uL; Eosinophils% 2.1 % (0-5); Hematocrit 35.6 % (37-47); Hemoglobin 11.5 g/dL (12.0-15.0); Lymphocyte # 3.15 X10^3/ul (0.83-4.51); Lymphocyte % 35.4 % (19-41); Mean Corp Hgb Conc 32.3 g/dL (32-36); Mean Corpuscular Hgb 29.4 pg (27.0-32.0); Mean Platelet Vol. 10.1 fl (6.2-12.0); Monocyte# 0.88 X10^3/uL; Monocyte% 9.9 % (0-10); NRBC Flagged by Analyzer 0 % (0-5); Neutrophil # 4.61 X10^3/uL (2.7-7.7); Neutrophil % 51.9 % (47-70); Platelet Count 252 K/mm3 (150-450); RBC Distribution Width CV 14.3 % (11.6-14.6); RBC Distribution Width SD 47.7 fl (35.1-43.9); Red Blood Count 3.91 M/mm3 (4.2-5.4); White Blood Count 8.9 K/mm3 (4.4-11.0)
[2022-07-03] MEDS: Ipratropium/Albuterol Sulfate 3 ML AMPUL.NEB INHALATION ×2 (07:48→19:04)
[2022-07-03 08:06] LABS: Anion Gap 6 (5-15); BUN 24 mg/dL (7-18); BUN/Creat Ratio 17.8 RATIO (10-20); Calcium,Total 9.7 mg/dL (8.5-10.1); Chloride 102 mmol/L (98-107); Creatinine, Serum 1.35 mg/dL (0.55-1.02); EST Glomerular Filtration Rate 40 mL/min (>60); Est Glom Filt Rate - Afr Amer 48 mL/min (>60); Estimated Creatinine Clearance 22.99 ml/min; Glucose 119 mg/dL (74-106); Potassium 4.1 mmol/L (3.5-5.1); Sodium Level 135 mmol/L (136-145)
[2022-07-03] MEDS: Furosemide 40 MG/4 ML Vial IV (09:05)
[2022-07-03] MEDS: Carvedilol 6.25 MG Tablet PO ×2 (09:05→21:12)
[2022-07-03] MEDS: Enoxaparin 30 MG/0.3 ML Syringe SC (09:05)
[2022-07-03] MEDS: Lisinopril 20 MG Tablet PO (09:05)
[2022-07-03] MEDS: amLODIPine 5 MG Tablet 10 MG PO (09:05)
[2022-07-03] MEDS: Bisacodyl 5 MG Tablet PO (09:06)
[2022-07-03] MEDS: Aspirin 81 MG TAB.CHEW PO (09:06)
[2022-07-03] MEDS: Anastrozole 1 MG TABLET PO (09:06)
[2022-07-03] MEDS: Ascorbic Acid 500 MG Tablet 1500 MG PO (09:06)
[2022-07-03] MEDS: 0.9% Saline Lock 10 ML Syringe IV (09:06)
[2022-07-03] MEDS: NATEGLINIDE 60 MG TABLET PO ×3 (09:06→17:40)
[2022-07-03] MEDS: Famotidine 20 MG Tablet PO (09:06)
[2022-07-03] MEDS: Cholecalciferol (Vit D3) 125 MCG CAPSULE (5,000 UNITS) PO (10:46)
[2022-07-03 12:21] LABS: Bedside Glucose 117 mg/dL (74-106)
--- NOTE | 2022-07-03 13:56 | PN.HOSP_ITS ---
Subjective Subjective Patient seen and examined. She says she feels like she has lost her will to live as she hs just deteriorating. She feels very weak and tired. She denies any fever, chills, cough, chest pain, palpitations, dizziness, nausea, vomiting or diarrhea. SHe doesnt feel like eating much and has lost her appetite. Review of systems is otherwise negative. . Objective Data Objective Data Vital Signs: Vital Signs Temp Pulse Resp BP Pulse Ox O2 Del Method O2 Flow Rate 98.1 F 55 L 18 129/54 H 90 Nasal Cannula 3 07/03/22 08:20 07/03/22 08:20 07/03/22 08:20 07/03/22 08:20 07/03/22 13:13 07/03/22 09:05 07/03/22 13:13 Oxygen Flow Rate (L/min) 3 Oxygen Delivery Method Nasal Cannula Weight: 228 lb 9.6 oz Body Mass Index (BMI) 43.2 Intake & Output: Intake and Output for Last 24 Hours 07/01/22 07/02/22 07/03/22 23:59 23:59 23:59 Intake Total 240 / 240 Output Total 650 / 650 200 / 200 Balance -650 / -650 40 / 40 Lab / Micro Data Result Diagrams: 07/03/22 07:05 07/03/22 07:05 Labs: Laboratory Results - last 24 hr 07/02/22 14:20: Troponin I High Sens 15 07/02/22 16:11: Troponin I High Sens 15 07/02/22 20:30: Troponin I High Sens 14 07/02/22 21:35: POC Glucose 114 H 07/03/22 06:48: POC Glucose 116 H 07/03/22 07:05: WBC 8.9, RBC 3.91 L, Hgb 11.5 L, Hct 35.6 L, MCV 91.0, MCH 29.4, MCHC 32.3, RDW Std Deviation 47.7 H, RDW Coeff of Pedro 14.3, Plt Count 252, MPV 10.1, Immature Gran % (Auto) 0.300, Neut % (Auto) 51.9, Lymph % (Auto) 35.4, Mon o % (Auto) 9.9, Eos % (Auto) 2.1, Baso % (Auto) 0.4, Absolute Neuts (auto) 4.6, Absolute Lymphs (auto) 3.15, Nucleated RBC % 0 07/03/22 07:05: Sodium 135 L, Potassium 4.1, Chloride 102, Carbon Dioxide 27.0, Anion Gap 6, BUN 24 H, Creatinine 1.35 H, Estim Creat Clear Calc 22.99, Est GFR (MDRD) Af Amer 48 L, Est GFR (MDRD) Non-Af 40 L, BUN/Creatinine Ratio 17.8, Glucose 119 H, Calcium 9.7 07/03/22 11:59: POC Glucose 117 H Micro: Microbiology 07/02/22 12:55 Interface Orders Rapid RSV (DFA) - Final 07/02/22 11:55 Nasal Secretion SARS-CoV-2 & FLU Antigen (Rapid) - Final Physical Exam Const alert, oriented x3 and no apparent distress General Appearance: cooperative HEENT normocephalic, head/scalp atraumatic, EAC's normal and moist oral mucous membranes Head and Scalp: normocephalic Mouth: oral and palatal mucosa normal Eyes PERRL and EOMs intact bilaterally Resp Resp Narrative: diminished breath sounds bibasally, few crackles bibasally, no crackles. On 2L of oxygen by nasal canula Cardio regular rate, regular rhythm, S1 normal heart sound, S2 normal heart sound and no murmurs GI normal to inspection, nondistended, normoactive bowel sounds, soft to palpation, non-tender and non-distended Extremity normal capillary refill, no clubbing, cyanosis or edema and no calf tenderness Skin General Skin Exam: no breakdown Neuro oriented x3, CN's II-XII intact bilaterally, no focal motor deficits and no s ensory deficits noted Sensorium / Orientation: awake and alert Motor Exam: strength 5/5 throughout and general weakness Psych thought process normal Mood & Affect: depressed Assessment & Plan Assessment/Plan (1) Uncontrolled hypertension: PLAN: Plan #Poorly controlled hypertension * says she only feels nauseous with her morning dose of hydralazine * carvedilol couldnt be increased as she has mild bradycardia; increasing the carvedilol will worsen the bradycardia * lisinopril also cannot be increased due to impaired kidny function * will skip morning dose of hydralazine and continue afternoon and evening dose of hydralazine * continue lisinopril * IV hydralazine prn * #Hypoxia: * improving * Chest x-ray showed atelectasis but BNP is mildly elevated and in setting of bilateral lower extremity edema, there may be some fluid overload. * on IV lasix 40mg daily * respiratory panel negative. covid test negative. #Type 2 diabetes mellitus: * We will not take the night. * Insulin sliding scale. * Accu-Cheks AC at bedtime #Acute on chronic HFpEF * BNP mildly activated. Has EF of around 60% with stage II diastolic dysfunction. * Being diuresed with IV Lasix 40 mg daily. * #History of breast cancer s/p lumpectomy. On anastrozole #CKD stage III: Creatinine at baseline. Will monitor. #Depressed mood * patient says she feels like she has lost her will to live, as she keeps deteriorating and getting weaker. She sounds depressed. Low threshold for starting antidepressant if she continues to feel this way * #DVT prophylaxis: Lovenox renally dosed CODE STATUS: DNR CCA no intubation * Charges/Coding Visit Charges Inpatient E&M: 06439 Subs Hosp L2
[2022-07-03] MEDS: hydrALAZINE 50 MG Tablet 100 MG PO ×2 (14:31→21:12)
--- NOTE | 2022-07-03 15:56 | CHAPLAIN ---
Type of Pastoral Visit _x__ Initial Visit ___ Follow-up Visit ___ On-call Visit ___ General Patient Visit ___ Spiritual Assessment ___ Family Conference ___ Bereavement ___ Rapid Response ___ Code Blue ___ Other (describe below) Pastoral Care Referral From _x__ Patient ___ Family ___ Nurse ___ Physician ___ Welding Pantograph Operator ___ Math And Physics Instructor ___ Other (describe below) Sacrament/Intervention _x__ Active listening ___ Anointing ___ Sabianism ___ Bereavement ___ Communion _x__ Elenita exploration ___ ___ Life review _x__ Prayer ___ Reconciliation ___ Sacrament of Sick _x__ Supportive presence ___ Wedding ___ Other (describe below) Pastoral Comments patient has been here before in recent admissions and remembered; daughter of pt is in the room and is talkative; pt states in front of daughter I just wish she would be quiet and I told her I don't want music on; pt states that she has turned this over to God and if he wants me now I am ready; daughter explains that pt has had several family deaths at this time of year and she is just depressed; pt identifies as a believer from the conservative [employer] tradition; pt explains that she does not want to take additional measures to stay alive; prayer is recommended and given; both express thanks for the spiritual care visit
--- NOTE | 2022-07-03 16:49 | NURSING ---
Gave report to Radha Galeano RN
[2022-07-03 18:42] LABS: Bedside Glucose 93 mg/dL (74-106)
[2022-07-03] MEDS: Latanoprost 0.005% 1 Bottle 1 DRP EACH EYE (21:13)
[2022-07-03 22:30] LABS: Bedside Glucose 140 mg/dL (74-106)
[2022-07-04] VITALS (15 sets, daily range): BP systolic 112–168; BP diastolic 37–66; PULSE 42–70; RESP 12–18; TEMP 36.6–36.8; O2SAT 92–97
[2022-07-04 05:28] LABS: Absolute Lymphocyte Count 3.04 X10^3/uL (0.83-4.51); Absolute Neutrophil Count 4.3 X10^3/uL (2.0-7.7); Basophil# 0.06 X10^3/uL; Basophil% 0.7 % (0-1); Eosinophil# 0.21 X10^3/uL; Eosinophils% 2.5 % (0-5); Hematocrit 34.5 % (37-47); Hemoglobin 11.6 g/dL (12.0-15.0); Lymphocyte # 3.04 X10^3/ul (0.83-4.51); Lymphocyte % 35.5 % (19-41); Mean Corp Hgb Conc 33.6 g/dL (32-36); Mean Corpuscular Hgb 30.6 pg (27.0-32.0); Mean Platelet Vol. 9.9 fl (6.2-12.0); Monocyte# 0.89 X10^3/uL; Monocyte% 10.4 % (0-10); NRBC Flagged by Analyzer 0 % (0-5); Neutrophil # 4.34 X10^3/uL (2.7-7.7); Neutrophil % 50.5 % (47-70); Platelet Count 222 K/mm3 (150-450); RBC Distribution Width CV 14.2 % (11.6-14.6); RBC Distribution Width SD 47.6 fl (35.1-43.9); Red Blood Count 3.79 M/mm3 (4.2-5.4); White Blood Count 8.6 K/mm3 (4.4-11.0)
[2022-07-04 06:01] LABS: Anion Gap 2 (5-15); BUN 28 mg/dL (7-18); BUN/Creat Ratio 19.9 RATIO (10-20); Calcium,Total 9.5 mg/dL (8.5-10.1); Chloride 101 mmol/L (98-107); Creatinine, Serum 1.41 mg/dL (0.55-1.02); EST Glomerular Filtration Rate 38 mL/min (>60); Est Glom Filt Rate - Afr Amer 46 mL/min (>60); Estimated Creatinine Clearance 22.01 ml/min; Glucose 99 mg/dL (74-106); Potassium 4.2 mmol/L (3.5-5.1); Sodium Level 135 mmol/L (136-145)
[2022-07-04] MEDS: Ipratropium/Albuterol Sulfate 3 ML AMPUL.NEB INHALATION ×3 (06:47→19:11)
[2022-07-04 07:25] LABS: Bedside Glucose 111 mg/dL (74-106)
[2022-07-04] MEDS: Anastrozole 1 MG TABLET PO (08:53)
[2022-07-04] MEDS: NATEGLINIDE 60 MG TABLET PO (08:53)
[2022-07-04] MEDS: Ascorbic Acid 500 MG Tablet 1500 MG PO (08:54)
[2022-07-04] MEDS: Famotidine 20 MG Tablet PO (08:54)
[2022-07-04] MEDS: amLODIPine 5 MG Tablet 10 MG PO (08:54)
[2022-07-04] MEDS: Lisinopril 20 MG Tablet PO (08:54)
[2022-07-04] MEDS: Carvedilol 6.25 MG Tablet PO (08:55)
[2022-07-04] MEDS: Aspirin 81 MG TAB.CHEW PO (08:55)
--- NOTE | 2022-07-04 09:00 | CASEMGMT ---
SHAWN RAINEY Face to Face with patient for initial transition planning/care coordination assessment. RN BRIGID introduced self and role at [facility]. Patient sitting in chair, alert and oriented. Patient willing to participate in assessment and is able to answer all questions appropriately. Care providers, pharmacy, and demographics verified. Patient wishes to discharge home with resumption of HHC with [facility]. Patient states she has no further needs or concerns at this time. CM to follow for discharge planning needs that may arise. PCP: Lukasz Specialists: Rissa, religious activities director; Nancy, degreasing wheel operator; , apprentice lineman third step Preferred Pharmacy: [facility] Insurance: [employer] Prescription Benefit: yes Living Will/HPOA: yes, son Paul Hanson LNOK: sons, daughter Living Arrangements: Patient lives alone but has a renter that stays in her basement. Patient lives in a ranch style home with 4 steps and railing to enter the home. Patient states she is independent at home. Transportation: daughter DME/HHC: Patient states she has shower chair, cane, walker, wheelchair, grab bars, and pulse ox at home. Prabhumaryann is active with [facility] for SN and PT. Patient has previously been to the TCU. Will monitor for home oxygen at discharge. Disposition Plan: Patient to discharge home with resumption of HHC, family support, and follow-up plans in place. Latonia ATWOOD, RN, CM
[2022-07-04] MEDS: Furosemide 40 MG/4 ML Vial IV (09:52)
[2022-07-04] MEDS: 0.9% Saline Lock 10 ML Syringe IV ×2 (09:52→10:40)
[2022-07-04] MEDS: Enoxaparin 30 MG/0.3 ML Syringe SC (09:53)
--- NOTE | 2022-07-04 10:02 | PN.HOSP_ITS ---
Subjective Subjective Patient seen and examined. She says she feels much better. Her breathing is improving. Review of systems is otherwise negative. She has remained hemodynamically stable. Her nausea has improved markedly. Objective Data Objective Data Vital Signs: Vital Signs Temp Pulse Resp BP Pulse Ox O2 Del Method O2 Flow Rate 98.1 F 55 L 16 158/66 H 97 Nasal Cannula 2 07/04/22 08:46 07/04/22 08:46 07/04/22 08:46 07/04/22 08:46 07/04/22 08:46 07/04/22 09:57 07/04/22 09:57 Oxygen Flow Rate (L/min) 2 Oxygen Delivery Method Nasal Cannula Weight: 228 lb 9.6 oz Body Mass Index (BMI) 43.2 Intake & Output: Intake and Output for Last 24 Hours 07/02/22 07/03/22 07/04/22 23:59 23:59 23:59 Intake Total 240 / 240 Output Total 650 / 650 400 / 400 Balance -650 / -650 -160 / -160 Lab / Micro Data Result Diagrams: 07/04/22 05:17 07/04/22 05:17 Labs: Laboratory Results - last 24 hr 07/03/22 11:59: POC Glucose 117 H 07/03/22 16:19: POC Glucose 93 07/03/22 21:10: POC Glucose 140 H 07/04/22 05:17: WBC 8.6, RBC 3.79 L, Hgb 11.6 L, Hct 34.5 L, MCV 91.0, MCH 30.6, MCHC 33.6, RDW Std Deviation 47.6 H, RDW Coeff of Pedro 14.2, Plt Count 222, MPV 9.9, Immature Gran % (Auto) 0.400, Neut % (Auto) 50.5, Lymph % (Auto) 35.5, [place] % (Auto) 10.4 H, Eos % (Auto) 2.5, Baso % (Auto) 0.7, Absolute Neuts (auto) 4.3, Absolute Lymphs (auto) 3.04, Nucleated RBC % 0 07/04/22 05:17: Sodium 135 L, Potassium 4.2, Chloride 101, Carbon Dioxide 32.0, Anion Gap 2 L, BUN 28 H, Creatinine 1.41 H, Estim Creat Clear Calc 22.01, Est GFR (MDRD) Af Amer 46 L, Est GFR (MDRD) Non-Af 38 L, BUN/Creatinine Ratio 19.9, Glucose 99, Calcium 9.5 07/04/22 06:53: POC Glucose 111 H Micro: Microbiology 07/02/22 12:55 Interface Orders Rapid RSV (DFA) - Final 07/02/22 11:55 Nasal Secretion SARS-CoV-2 & FLU Antigen (Rapid) - Final Physical Exam Const alert, oriented x3 and no apparent distress Constitutional Narrative: obese General Appearance: cooperative HEENT normocephalic, head/scalp atraumatic, EAC's normal and moist oral mucous membranes Head and Scalp: normocephalic Mouth: oral and palatal mucosa normal Eyes PERRL and EOMs intact bilaterally Neck no lymphadenopathy and supple Resp Resp Narrative: diminished breath sounds bibasally, few crackles bibasally, no crackles. On 2L of oxygen by nasal canula Cardio regular rate, regular rhythm, S1 normal heart sound, S2 normal heart sound and no murmurs GI normal to inspection, nondistended, normoactive bowel sounds, soft to palpation, non-tender and non-distended Extremity normal to inspection, full ROM, normal capillary refill, no clubbing, cyanosis or edema and no calf tenderness Skin General Skin Exam: no breakdown Neuro oriented x3, CN's II-XII intact bilaterally, moves all extremities, no focal motor deficits and no sensory deficits noted Sensorium / Orientation: awake and alert Motor Exam: strength 5/5 throughout and general weakness Psych thought process normal Mood & Affect: depressed Assessment & Plan Assessment/Plan (1) Uncontrolled hypertension: PLAN: Plan #Poorly controlled hypertension * nausea is improving. * on carvedilol and lisinopril. On hydralazine; will continue holding morning dose as she says that makes her nauseous * IV hydralazine prn * BP control is improving * #Hypoxia: * on 2L of oxygen. Says she feels much better. * Chest x-ray showed atelectasis but BNP is mildly elevated and in setting of bilateral lower extremity edema, there may be some fluid overload. * on IV lasix 40mg daily; will switch to PO lasix 40mg daily * respiratory panel negative. covid test negative. #Type 2 diabetes mellitus: * Insulin sliding scale. * Accu-Cheks AC at bedtime #Acute on chronic HFpEF * BNP mildly elevated. Has EF of around 60% with stage II diastolic dysfuncti on. * Being diuresed with IV Lasix 40 mg daily. will switch to PO lasix 40mg daily. * #History of breast cancer s/p lumpectomy. On anastrozole #CKD stage III: Creatinine at baseline. Will monitor. #Depressed mood * patient is feeling better today, and says she doesnt feel depressed today. * #DVT prophylaxis: Lovenox renally dosed CODE STATUS: DNR CCA no intubation * Later this mornign, patient became dizzy and lightheadedness, with a brief episode of unresponsiveness. She had associated bradycardia with heart rate going down to the 30s. Blood glucose was WNL, and stat EKG ordered showed sinus bradycardia with HR of 45. She had 2D echo in March 2022 which showed EF of 60% with stage II diastolic dysfunction. Will dc carvedilol; cardiology consulted. Charges/Coding Visit Charges Inpatient E&M: 96976 Subs Hosp L3
--- NOTE | 2022-07-04 10:29 | EKG12_ITS ---
Test Reason : Blood Pressure : / mmHG Vent. Rate : 045 BPM Atrial Rate : 045 BPM P-R Int : 206 ms QRS Dur : 092 ms QT Int : 444 ms P-R-T Axes : 056 010 052 degrees QTc Int : 384 ms Sinus bradycardia Early repolarization Otherwise normal ECG When compared with ECG of 03-JUL-2022 05:48, No significant change was found Confirmed by LAMINE LAINEZ, DANGELO ([id number]), order editor MANASA EGAN ([id number]) on 07/05/2022 10:51:00 AM Referred By: CARMELINA Confirmed By:ALESSIO RAMAN MD
[2022-07-04] MEDS: Ondansetron 4 MG/2 ML Vial IV (10:40)
[2022-07-04 10:51] LABS: Bedside Glucose 175 mg/dL (74-106)
[2022-07-04 11:29] LABS: Troponin-I HS 12 pg/mL (3.0-54.0)
--- NOTE | 2022-07-04 12:36 | CON.PCM.RE_ITS ---
Documented by User: ERIKA Harrison 07/04/22 12:56 Assessment & Plan Assessment/Plan (1) Hypertension: (2) Diastolic congestive heart failure: (3) Chronic kidney disease, stage 3a: (4) Bradycardia: PLAN: Plan Patient has known history of chronic kidney disease stage III with baseline creatinine ranging around 1 to 1.2 mg/dL. Patient was seen in our office on June 28 as a hospital follow-up. At that time serum creatinine was at baseline and blood pressures acceptable in office. For this admission, Serum creatinine was 1.2 mg/dL on admission and today her creatinine is slightly elevated at 1.41 mg/dL. She has a history of chronic diastolic heart failure, echo in March 2022 EF 60% with stage II diastolic dysfunction therefore not surprising to see fluctuating serum creatinine levels. Patient has a history of uncontrolled hypertension but recently noted to be controlled. She did have renal Doppler in September 2021 and again May 2022 which was negative for any renal artery stenosis. From a volume standpoint, patient does appear to be com pensated at this time. She was receiving furosemide IV 40 mg daily but switched to oral today. She does report appetite has been poor, patient reports she does not like hospital food and is also feeling nauseated with constipation yesterday and again today. We will hold Lasix for tomorrow. UA negative for blood or protein. Continue current blood pressure medications as ordered including lisinopril. Cardiology consulted for bradycardia, carvedilol is now on hold. Current blood pressures are acceptable at this time. 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 Labs ordered for the morning. Further orders forthcoming as hospitalization evolves. Thank you for allowing us participate in the care of Ms. Hanson. HPI Consult Data Date of Consult: 07/04/22 HPI Narrative HPI Narrative: DEBBIE HANSON, is a 86 F with past medical history significant for hypertension, breast cancer, diabetes mellitus type 2, chronic diastolic heart failure (last EF 60%) who presented to the emergency room with complaints of feeling unwell, nausea and high blood pressure. Patient was admitted for further evaluation and treatment. Systolic blood pressure in the emergency room 160s to 180s. We were consulted as patient has known history of acute kidney injury on chronic kidney disease stage III. Patient developed nondialysis requiring acute kidney injury, prerenal and with holding FREIDA inhibitor and diuretic renal function improved during last hospitalization. Her creatinine peaked around 2 mg/dL on 06/06/2022 and by 06/08/2022 creatinine improved to 1.21 mg/dL. Patient was seen in the office for hospital follow-up on June 28. Her creatinine had improved back to baseline, on 06/17 serum creatinine 1.15 mg/dL. In the emergency room on 07/02/2022 creatinine 1.25 mg/dL and today her creatinine is at 1.41 mg/dL. Patient reports she has not had much of an appetite in the hospital. She is complaining of feeling of nausea and constipation. She also had an episode of emesis. Earlier this morning patient became dizzy, light headed and bradycardic with heart rate into the 30s. Carvedilol has been discontinued and cardiology consulted. [facility] Medical History Abnormal cardiac enzyme level Ambulates with cane Arthritis Bilateral carotid artery stenosis Bilateral extracranial carotid artery stenosis Breast abscess Breast cancer, right breast (~03/2022) Cancer CHF (congestive heart failure) Difficulty swallowing Encounter for education GERD (gastroesophageal reflux disease) History of edema History of IBS History of renal disease History of steroid therapy HLD (hyperlipidemia) HTN (hypertension) Hyperlipidemia Hypertension Infected seroma, postoperative Left adrenal mass Leg cramps Non-smoker PONV (postoperative nausea and vomiting) Shortness of breath on exertion Sleep apnea Stage 3a chronic kidney disease (CKD) Type 2 diabetes mellitus Wears glasses Wears hearing aid Home Medications latanoprost 0.005 % eye drops (Xalatan) 1 drp EACH EYE QHS Cataracts/Dry eye 07/29/14 [History Last Taken 07/01/22] omega-3 fatty acids-fish oil 300 mg-1,000 mg capsule 1 ea PO DAILY SUPPLEMENT 07/29/14 [History Last Taken 07/01/22] nateglinide 60 mg tablet 60 mg PO TID BLOOD GLUCOSE 08/27/17 [History Last Taken 07/01/22] aspirin 81 mg chewable tablet 81 mg PO DAILY HEART HEALTH 06/26/18 [History Last Taken 07/02/22] cholecalciferol (vitamin D3) 125 mcg (5,000 unit) capsule 125 mcg PO DAILY SUPPLEMENT 04/01/22 [History Last Taken 07/01/22] liver supplement 1 cap PO QHS SUPPLEMENT 04/01/22 [History Last Taken 07/01/22] carvedilol 6.25 mg tablet 6.25 mg PO BID blood pressure 05/23/22 [History Last Taken 07/01/22] hydralazine 50 mg tablet 100 mg PO TID blood pressure 05/23/22 [History Last Taken 07/02/22] sodium chloride 0.65 % nasal spray aerosol (Deep Sea Nasal) 2 spray NASAL TID PRN PRN NASAL DRYNESS #0 mL 05/23/22 [Rx Last Taken Unknown] melatonin 3 mg capsule 3 mg PO HS PRN Sleep 06/04/22 [History Last Taken Unknown] Colloidal Silver 1 tsp PO DAILY SUPPLEMENT 06/11/22 [History Last Taken 07/01/22] cinnamon bark 500 mg capsule (Cinnamon) 500 mg PO DAILY SUPPLEMENT 06/11/22 [History Last Taken 07/01/22] ondansetron 4 mg disintegrating tablet 4 mg PO UD PRN nausea/vomiting 06/11/22 [History Last Taken Unknown] anastrozole 1 mg tablet 1 mg PO DAILY #90 tabs 06/18/22 [Rx Last Taken Unknown] acetaminophen 500 mg tablet 1,000 mg PO Q6H PRN Pain 07/02/22 [History Last Taken 06/28/22] amlodipine 10 mg tablet 10 mg PO DAILY blood pressure 07/02/22 [History Last Taken 07/02/22] ascorbic acid (vitamin C) 500 mg tablet 500 mg PO BID supplement 07/02/22 [Hi story Last Taken 07/01/22] famotidine 20 mg tablet (Pepcid) 20 mg PO DAILY acid reflux 07/02/22 [History Last Taken 07/01/22] furosemide 40 mg tablet 40 mg PO DAILY FLUID 07/02/22 [History Last Taken 07/02/22] lisinopril 20 mg tablet 20 mg PO DAILY BLOOD PRESSURE 07/02/22 [History Last Taken 07/01/22] lorazepam 0.5 mg tablet 0.5 mg PO DAILY PRN Anxiety 07/02/22 [History Last Taken 07/02/22] polyethylene glycol 3350 17 gram oral powder packet 17 g PO QHS STOOL 07/02/22 [History Last Taken 07/01/22] Allergy/AdvReac Type Severity Reaction Status Date / Time morphine AdvReac Intermediate mental Verified 07/02/22 07:28 status change meperidine HCl [From Demerol] AdvReac Mild mental Verified 07/02/22 07:28 status change Family History Brother Pancreatic cancer Diabetes Heart disease Lung cancer Hypertension Colon cancer Mother Hypertension Brother No problems noted. 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 No rhonchi or rales appreciated Abdomen soft, nontender, positive bowel sounds x4 quadrant No pitting edema noted bilateral lower legs Lab / Micro Data Result Diagrams: 07/05/22 06:51 07/05/22 06:51 Labs: Laboratory Results - last 24 hr 07/03/22 16:19: POC Glucose 93 07/03/22 21:10: POC Glucose 140 H 07/04/22 05:17: WBC 8.6, RBC 3.79 L, Hgb 11.6 L, Hct 34.5 L, MCV 91.0, MCH 30.6, MCHC 33.6, RDW Std Deviation 47.6 H, RDW Coeff of Pedro 14.2, Plt Count 222, MPV 9.9, Immature Gran % (Auto) 0.400, Neut % (Auto) 50.5, Lymph % (Auto) 35.5, [place] % (Auto) 10.4 H, Eos % (Auto) 2.5, Baso % (Auto) 0.7, Absolute Neuts (auto) 4.3, Absolute Lymphs (auto) 3.04, Nucleated RBC % 0 12/15/22 05:17: Sodium 135 L, Potassium 4.2, Chloride 101, Carbon Dioxide 32.0, Anion Gap 2 L, BUN 28 H, Creatinine 1.41 H, Estim Creat Clear Calc 22.01, Est G FR (MDRD) Af Amer 46 L, Est GFR (MDRD) Non-Af 38 L, BUN/Creatinine Ratio 19.9, Glucose 99, Calcium 9.5 07/04/22 06:53: POC Glucose 111 H 07/04/22 10:28: POC Glucose 175 H 07/04/22 10:55: Troponin I High Sens 12 Documented by User: Dr. Jose Maria Hudson MD 07/05/22 14:44 Assessment & Plan Assessment/Plan (1) Hypertension: (2) Diastolic congestive heart failure: (3) Chronic kidney disease, stage 3a: (4) Bradycardia: HPI Consult Data Date of Consult: 07/05/22 [facility] Medical History Abnormal cardiac enzyme level Ambulates with cane Arthritis Bilateral carotid artery stenosis Bilateral extracranial carotid artery stenosis Breast abscess Breast cancer, right breast (~03/2022) Cancer CHF (congestive heart failure) Difficulty swallowing Encounter for education GERD (gastroesophageal reflux disease) History of edema History of IBS History of renal disease History of steroid therapy HLD (hyperlipidemia) HTN (hypertension) Hyperlipidemia Hypertension Infected seroma, postoperative Left adrenal mass Leg cramps Non-smoker PONV (postoperative nausea and vomiting) Shortness of breath on exertion Sleep apnea Stage 3a chronic kidney disease (CKD) Type 2 diabetes mellitus Wears glasses Wears hearing aid Home Medications latanoprost 0.005 % eye drops (Xalatan) 1 drp EACH EYE QHS Cataracts/Dry eye 07/29/14 [History Last Taken 07/01/22] omega-3 fatty acids-fish oil 300 mg-1,000 mg capsule 1 ea PO DAILY SUPPLEMENT 07/29/14 [History Last Taken 07/01/22] nateglinide 60 mg tablet 60 mg PO TID BLOOD GLUCOSE 08/27/17 [History Last Taken 07/01/22] aspirin 81 mg chewable tablet 81 mg PO DAILY HEART HEALTH 06/26/18 [History Last Taken 07/02/22] cholecalciferol (vitamin D3) 125 mcg (5,000 unit) capsule 125 mcg PO DAILY SUPPLEMENT 04/01/22 [History Last Taken 07/01/22] liver supplement 1 cap PO QHS SUPPLEMENT 04/01/22 [History Last Taken 07/01/22] carvedilol 6.25 mg tablet 6.25 mg PO BID blood pressure 05/23/22 [History Last Taken 07/01/22] hydralazine 50 mg tablet 100 mg PO TID blood pressure 05/23/22 [History Last Taken 07/02/22] sodium chloride 0.65 % nasal spray aerosol (Deep Sea Nasal) 2 spray NASAL TID PRN PRN NASAL DRYNESS #0 mL 05/23/22 [Rx Last Taken Unknown] melatonin 3 mg capsule 3 mg PO HS PRN Sleep 06/04/22 [History Last Taken Unknown] Colloidal Silver 1 tsp PO DAILY SUPPLEMENT 06/11/22 [History Last Taken 07/01/22] cinnamon bark 500 mg capsule (Cinnamon) 500 mg PO DAILY SUPPLEMENT 06/11/22 [History Last Taken 07/01/22] ondansetron 4 mg disintegrating tablet 4 mg PO UD PRN nausea/vomiting 06/11/22 [History Last Taken Unknown] anastrozole 1 mg tablet 1 mg PO DAILY #90 tabs 06/18/22 [Rx Last Taken Unknown] acetaminophen 500 mg tablet 1,000 mg PO Q6H PRN Pain 07/02/22 [History Last Taken 06/28/22] amlodipine 10 mg tablet 10 mg PO DAILY blood pressure 07/02/22 [History Last Taken 07/02/22] ascorbic acid (vitamin C) 500 mg tablet 500 mg PO BID supplement 07/02/22 [History Last Taken 07/01/22] famotidine 20 mg tablet (Pepcid) 20 mg PO DAILY acid reflux 07/02/22 [History Last Taken 07/01/22] furosemide 40 mg tablet 40 mg PO DAILY FLUID 07/02/22 [History Last Taken 07/02/22] lisinopril 20 mg tablet 20 mg PO DAILY BLOOD PRESSURE 07/02/22 [History Last Taken 07/01/22] lorazepam 0.5 mg tablet 0.5 mg PO DAILY PRN Anxiety 07/02/22 [History Last Taken 07/02/22] polyethylene glycol 3350 17 gram oral powder packet 17 g PO QHS STOOL 07/02/22 [History Last Taken 07/01/22] Allergy/AdvReac Type Severity Reaction Status Date / Time morphine AdvReac Intermediate mental Verified 07/02/22 07:28 status change meperidine HCl [From Demerol] AdvReac Mild mental Verified 07/02/22 07:28 status change Family History Brother Pancreatic cancer Diabetes Heart disease Lung cancer Hypertension Colon cancer Mother Hypertension Brother No problems noted. 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
[2022-07-04 13:20] LABS: Troponin-I HS 12 pg/mL (3.0-54.0)
[2022-07-04] MEDS: Lactulose 20 GM/30 ML UDC PO (15:00)
[2022-07-04 15:36] LABS: Bedside Glucose 183 mg/dL (74-106)
[2022-07-04 17:19] LABS: Troponin-I HS 12 pg/mL (3.0-54.0)
[2022-07-04 19:21] LABS: Bedside Glucose 125 mg/dL (74-106)
--- NOTE | 2022-07-04 20:07 | CON.PCM.CA_ITS ---
Assessment & Plan Assessment/Plan (1) Bradycardia: PLAN: Unclear if patient is symptomatic from this bradycardia. Her episode this morning could have been a vasovagal response to her nausea. Recommend holding hydralazine and carvedilol and continuing telemetry monitoring at this time. We will continue to follow. HPI Consult Data Date of Consult: 07/04/22 HPI Narrative Reason for Consultation: Bradycardia, syncope HPI Narrative: DEBBIE KENNEY, is a 86 F who presents with uncontrolled hypertension. Patient has been having episodes of nausea over the last 6 weeks. When she gets these episodes she has generalized weakness. This morning she had an episode where she had nausea and then became unresponsive briefly. She was also getting an IV placed at that time this happened. Patient has not had such episodes with IVs before. She has not had episodes of nausea or dizziness before all this started about 6 weeks back. She felt that her hydralazine could be causing the nausea. Hydralazine has been hold since last night. She was also on Coreg which has been on hold since this morning. When she had episode of unresponsiveness apparently her heart rate had dipped to the 30s. Her heart rate has been in the 50s to 60s for the most part when she has been on carvedilol. [facility] Medical History Abnormal cardiac enzyme level Ambulates with cane Arthritis Bilateral carotid artery stenosis Bilateral extracranial carotid artery stenosis Breast abscess Breast cancer, right breast (~03/2022) Cancer CHF (congestive heart failure) Difficulty swallowing Encounter for education GERD (gastroesophageal reflux disease) History of edema History of IBS History of renal disease History of steroid therapy HLD (hyperlipidemia) HTN (hypertension) Hyperlipidemia Hypertension Infected seroma, postoperative Left adrenal mass Leg cramps Non-smoker PONV (postoperative nausea and vomiting) Shortness of breath on exertion Sleep apnea Stage 3a chronic kidney disease (CKD) Type 2 diabetes mellitus Wears glasses Wears hearing aid Home Medications latanoprost 0.005 % eye drops (Xalatan) 1 drp EACH EYE QHS Cataracts/Dry eye 07/29/14 [History Last Taken 07/01/22] omega-3 fatty acids-fish oil 300 mg-1,000 mg capsule 1 ea PO DAILY SUPPLEMENT 07/29/14 [History Last Taken 07/01/22] nateglinide 60 mg tablet 60 mg PO TID BLOOD GLUCOSE 08/27/17 [History Last Taken 07/01/22] aspirin 81 mg chewable tablet 81 mg PO DAILY HEART HEALTH 06/26/18 [History Last Taken 07/02/22] cholecalciferol (vitamin D3) 125 mcg (5,000 unit) capsule 125 mcg PO DAILY SUPPLEMENT 04/01/22 [History Last Taken 07/01/22] liver supplement 1 cap PO QHS SUPPLEMENT 04/01/22 [History Last Taken 07/01/22] carvedilol 6.25 mg tablet 6.25 mg PO BID blood pressure 05/23/22 [History Last Taken 07/01/22] hydralazine 50 mg tablet 100 mg PO TID blood pressure 05/23/22 [History Last Taken 07/02/22] sodium chloride 0.65 % nasal spray aerosol (Deep Sea Nasal) 2 spray NASAL TID PRN PRN NASAL DRYNESS #0 mL 05/23/22 [Rx Last Taken Unknown] melatonin 3 mg capsule 3 mg PO HS PRN Sleep 06/04/22 [History Last Taken Unknown] Colloidal Silver 1 tsp PO DAILY SUPPLEMENT 06/11/22 [History Last Taken 07/01/22] cinnamon bark 500 mg capsule (Cinnamon) 500 mg PO DAILY SUPPLEMENT 06/11/22 [History Last Taken 07/01/22] ondansetron 4 mg disintegrating tablet 4 mg PO UD PRN nausea/vomiting 06/11/22 [History Last Taken Unknown] anastrozole 1 mg tablet 1 mg PO DAILY #90 tabs 06/18/22 [Rx Last Taken Unknown] acetaminophen 500 mg tablet 1,000 mg PO Q6H PRN Pain 07/02/22 [History Last Taken 06/28/22] amlodipine 10 mg tablet 10 mg PO DAILY blood pressure 07/02/22 [History Last Taken 07/02/22] ascorbic acid (vitamin C) 500 mg tablet 500 mg PO BID supplement 07/02/22 [History Last Taken 07/01/22] famotidine 20 mg tablet (Pepcid) 20 mg PO DAILY acid reflux 07/02/22 [History Last Taken 07/01/22] furosemide 40 mg tablet 40 mg PO DAILY FLUID 07/02/22 [History Last Taken 07/02/22] lisinopril 20 mg tablet 20 mg PO DAILY BLOOD PRESSURE 07/02/22 [History Last Taken 07/01/22] lorazepam 0.5 mg tablet 0.5 mg PO DAILY PRN Anxiety 07/02/22 [History Last Taken 07/02/22] polyethylene glycol 3350 17 gram oral powder packet 17 g PO QHS STOOL 07/02/22 [History Last Taken 07/01/22] Allergy/AdvReac Type Severity Reaction Status Date / Time morphine AdvReac Intermediate mental Verified 07/02/22 07:28 status change meperidine HCl [From Demerol] AdvReac Mild mental Verified 07/02/22 07:28 status change Family History Brother Pancreatic cancer Diabetes Heart disease Lung cancer Hypertension Colon cancer Mother Hypertension Brother No problems noted. 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 housing: house Smoking Status: Never smoker alcohol intake: never substance use type: does not use what type of physical activity do you participate in: none seatbelt use: always do you feel safe at home: Yes Physical Exam Const alert and oriented x3 HEENT normocephalic Eyes no scleral icterus Resp clear to auscultation bilaterally Cardio regular rate and regular rhythm Extremity no pedal edema Skin no rashes or lesions noted Psych mental status grossly normal Risk Stratification Risk Stratification Applicable: No Charges/Coding Visit Charges Inpatient E&M: 47950 Init Hosp L2 Objective Data Vital Signs: Vital Signs Temp Pulse Resp BP Pulse Ox O2 Del Method O2 Flow Rate 98.1 F 67 12 122/37 H 93 Nasal Cannula 2 07/04/22 16:00 07/04/22 19:11 07/04/22 19:11 07/04/22 16:00 07/04/22 16:00 07/04/22 16:00 07/04/22 14:00 Oxygen Flow Rate (L/min) 2 Oxygen Delivery Method Nasal Cannula Weight: 228 lb 9.592 oz Body Mass Index (BMI) 43.2 Intake & Output: Intake and Output for Last 24 Hours 07/02/22 07/03/22 07/04/22 23:59 23:59 23:59 Intake Total 240 / 240 240 / 240 Output Total 650 / 650 400 / 400 Balance -650 / -650 -160 / -160 240 / 240 Lab / Micro Data Result Diagrams: 07/04/22 05:17 07/04/22 05:17 Labs: Laboratory Results - last 24 hr 07/03/22 21:10: POC Glucose 140 H 07/04/22 05:17: WBC 8.6, RBC 3.79 L, Hgb 11.6 L, Hct 34.5 L, MCV 91.0, MCH 30.6, MCHC 33.6, RDW Std Deviation 47.6 H, RDW Coeff of Pedro 14.2, Plt Count 222, MPV 9.9, Immature Gran % (Auto) 0.400, Neut % (Auto) 50.5, Lymph % (Auto) 35.5, Bent % (Auto) 10.4 H, Eos % (Auto) 2.5, Baso % (Auto) 0.7, Absolute Neuts (auto) 4.3, Absolute Lymphs (auto) 3.04, Nucleated RBC % 0 07/04/22 05:17: Sodium 135 L, Potassium 4.2, Chloride 101, Carbon Dioxide 32.0, Anion Gap 2 L, BUN 28 H, Creatinine 1.41 H, Estim Creat Clear Calc 22.01, Est GFR (MDRD) Af Amer 46 L, Est GFR (MDRD) Non-Af 38 L, BUN/Creatinine Ratio 19.9, Glucose 99, Calcium 9.5 07/04/22 06:53: POC Glucose 111 H 07/04/22 10:28: POC Glucose 175 H 07/04/22 10:55: Troponin I High Sens 12 07/04/22 12:50: Troponin I High Sens 12 07/04/22 15:10: POC Glucose 183 H 07/04/22 16:27: Troponin I High Sens 07/04/22 19:02: POC Glucose 125 H Cardiology Labs/Tests 07/04/22 05:17: WBC 8.6, RBC 3.79 L, Hgb 11.6 L, Hct 34.5 L, MCV 91.0, MCH 30.6, MCHC 33.6, Plt Count 222, MPV 9.9, Immature Gran % (Auto) 0.400, Neut % (Auto) 50.5, Lymph % (Auto) 35.5, Bent % (Auto) 10.4 H, Eos % (Auto) 2.5, Baso % (Auto) 0.7, Absolute Neuts (auto) 4.3, Nucleated RBC % 0 07/04/22 05:17: Sodium 135 L, Potassium 4.2, Chloride 101, Carbon Dioxide 32.0, Anion Gap 2 L, BUN 28 H, Creatinine 1.41 H, Est GFR (MDRD) Af Amer 46 L, Est GFR (MDRD) Non-Af 38 L, BUN/Creatinine Ratio 19.9, Glucose 99, Calcium 9.5 Rhythm: EKG: ECHO: Stress Test: Cardiac Cath: PCI: CT Surgery: Holter monitor: EPS: PPM: CXR: Chest CT Scan:
[2022-07-04] MEDS: Latanoprost 0.005% 1 Bottle 1 DRP EACH EYE (20:38)
--- NOTE | 2022-07-04 21:48 | NURSING ---
the daughter wanted to stay with the pt. initially we said ok but then the pt wanted her to go home. the retail field supervisor compromised and will allow her to sleep in the waiting room.
[2022-07-04 23:16] LABS: Bedside Glucose 139 mg/dL (74-106)
[2022-07-05] VITALS (17 sets, daily range): BP systolic 128–159; BP diastolic 42–44; PULSE 54–65; RESP 14–18; TEMP 36.3–36.6; O2SAT 92–97
[2022-07-05 07:00] LABS: Absolute Lymphocyte Count 3.24 X10^3/uL (0.83-4.51); Absolute Neutrophil Count 6.5 X10^3/uL (2.0-7.7); Basophil# 0.06 X10^3/uL; Basophil% 0.5 % (0-1); Eosinophil# 0.28 X10^3/uL; Eosinophils% 2.5 % (0-5); Hematocrit 36.5 % (37-47); Hemoglobin 11.7 g/dL (12.0-15.0); Lymphocyte # 3.24 X10^3/ul (0.83-4.51); Lymphocyte % 29.3 % (19-41); Mean Corp Hgb Conc 32.1 g/dL (32-36); Mean Corpuscular Hgb 29.1 pg (27.0-32.0); Mean Corpuscular Volume 90.8 fL (81-99); Mean Platelet Vol. 9.6 fl (6.2-12.0); Monocyte# 0.96 X10^3/uL; Monocyte% 8.7 % (0-10); NRBC Flagged by Analyzer 0 % (0-5); Neutrophil # 6.46 X10^3/uL (2.7-7.7); Neutrophil % 58.5 % (47-70); Platelet Count 235 K/mm3 (150-450); RBC Distribution Width CV 13.8 % (11.6-14.6); Red Blood Count 4.02 M/mm3 (4.2-5.4); White Blood Count 11.1 K/mm3 (4.4-11.0)
[2022-07-05] MEDS: Ipratropium/Albuterol Sulfate 3 ML AMPUL.NEB INHALATION ×3 (07:08→20:52)
[2022-07-05 07:25] LABS: Bedside Glucose 103 mg/dL (74-106)
[2022-07-05 07:43] LABS: Anion Gap 4 (5-15); BUN 28 mg/dL (7-18); BUN/Creat Ratio 20.1 RATIO (10-20); Calcium,Total 9.7 mg/dL (8.5-10.1); Chloride 101 mmol/L (98-107); Creatinine, Serum 1.39 mg/dL (0.55-1.02); EST Glomerular Filtration Rate 38 mL/min (>60); Est Glom Filt Rate - Afr Amer 46 mL/min (>60); Estimated Creatinine Clearance 22.33 ml/min; Glucose 104 mg/dL (74-106); Potassium 4.1 mmol/L (3.5-5.1); Sodium Level 136 mmol/L (136-145)
[2022-07-05] MEDS: Bisacodyl 5 MG Tablet PO (08:25)
[2022-07-05] MEDS: Ascorbic Acid 500 MG Tablet 1500 MG PO (08:25)
[2022-07-05] MEDS: Aspirin 81 MG TAB.CHEW PO (08:26)
[2022-07-05] MEDS: NATEGLINIDE 60 MG TABLET PO ×3 (08:26→17:21)
[2022-07-05] MEDS: amLODIPine 5 MG Tablet 10 MG PO (08:27)
[2022-07-05] MEDS: Anastrozole 1 MG TABLET PO (08:28)
[2022-07-05] MEDS: Enoxaparin 30 MG/0.3 ML Syringe SC (08:29)
[2022-07-05] MEDS: Famotidine 20 MG Tablet PO (08:29)
--- NOTE | 2022-07-05 08:57 | PN.CARD_ITS ---
Subjective Subjective The patient is awake and alert. She has no new acute complaints this day. Objective Data Vital Signs: Vital Signs Temp Pulse Resp BP Pulse Ox O2 Del Method O2 Flow Rate 97.9 F 56 L 14 148/42 H 93 Nasal Cannula 2 07/05/22 08:21 07/05/22 08:21 07/05/22 08:21 07/05/22 08:21 07/05/22 08:21 07/05/22 08:21 07/05/22 08:21 Oxygen Flow Rate (L/min) 2 Oxygen Delivery Method Nasal Cannula Weight: 228 lb 9.592 oz Body Mass Index (BMI) 43.2 Intake & Output: Intake and Output for Last 24 Hours 07/03/22 07/04/22 07/05/22 23:59 23:59 23:59 Intake Total 240 / 240 240 / 240 Output Total 400 / 400 0 / 0 Balance -160 / -160 240 / 240 0 / 0 Lab / Micro Data Result Diagrams: 07/05/22 06:51 07/05/22 06:51 Labs: Laboratory Results - last 24 hr 07/04/22 10:28: POC Glucose 175 H 07/04/22 10:55: Troponin I High Sens 12 07/04/22 12:50: Troponin I High Sens 07/04/22 15:10: POC Glucose 183 H 07/04/22 16:27: Troponin I High Sens 12 07/04/22 19:02: POC Glucose 125 H 07/04/22 22:44: POC Glucose 139 H 07/05/22 06:51: WBC 11.1 H, RBC 4.02 L, Hgb 11.7 L, Hct 36.5 L, MCV 90.8, MCH 29.1, MCHC 32.1, RDW Std Deviation 46.0 H, RDW Coeff of Pedro 13.8, Plt Count 235, MPV 9.6, Immature Gran % (Auto) 0.500, Neut % (Auto) 58.5, Lymph % (Auto) 29.3, [place] % (Auto) 8.7, Eos % (Auto) 2.5, Baso % (Auto) 0.5, Absolute Neuts (auto) 6.5, Absolute Lymphs (auto) 3.24, Nucleated RBC % 0 07/05/22 06:51: Sodium 136, Potassium 4.1, Chloride 101, Carbon Dioxide 31.0, Anion Gap 4 L, BUN 28 H, Creatinine 1.39 H, Estim Creat Clear Calc 22.33, Est GFR (MDRD) Af Amer 46 L, Est GFR (MDRD) Non-Af 38 L, BUN/Creatinine Ratio 20.1 H , Glucose 104, Calcium 9.7 07/05/22 06:59: POC Glucose 103 Cardiology Labs/Tests 07/05/22 06:51: WBC 11.1 H, RBC 4.02 L, Hgb 11.7 L, Hct 36.5 L, MCV 90.8, MCH 29.1, MCHC 32.1, Plt Count 235, MPV 9.6, Immature Gran % (Auto) 0.500, Neut % (Auto) 58.5, Lymph % (Auto) 29.3, [place] % (Auto) 8.7, Eos % (Auto) 2.5, Baso % (Auto) 0.5, Absolute Neuts (auto) 6.5, Nucleated RBC % 0 07/05/22 06:51: Sodium 136, Potassium 4.1, Chloride 101, Carbon Dioxide 31.0, Anion Gap 4 L, BUN 28 H, Creatinine 1.39 H, Est GFR (MDRD) Af Amer 46 L, Est GFR (MDRD) Non-Af 38 L, BUN/Creatinine Ratio 20.1 H, Glucose 104, Calcium 9.7 Rhythm: Sinus rhythm/sinus bradycardia EKG: Sinus rhythm/sinus bradycardia Physical Exam Const alert, oriented x3 and no apparent distress Orientation / Consciousness: awake HEENT normocephalic, head/scalp atraumatic and hearing grossly normal bilaterally Eyes PERRL, EOMs intact bilaterally, conjunctivae normal and no scleral icterus Neck full ROM, supple and no JVD Resp normal respiratory effort and clear to auscultation bilaterally Cardio regular rhythm, S1 normal heart sound and S2 normal heart sound Rate: bradycardia GI normal to inspection, nondistended, normoactive bowel sounds Extremity no pedal edema Skin no rashes or lesions noted Psych mental status grossly normal Assessment & Plan Assessment/Plan (1) Bradycardia: PLAN: The patient was previously evaluated by Dr. Valenzuela for concerns of her symptoms of nausea and subsequent concerns of sinus bradycardia with report of transient unresponsiveness during IV line placement/manipulation. According to Dr. Nagajothi there were concerns that her sinus bradycardia and report of transient unresponsiveness during the IV line placement/manipulation were compatible with an underlying vasovagal mediated type event. At the present time she is continuing supportive therapy. Based upon the concerns of sinus bradycardia her beta-anatoliy dose has been placed on hold. He did not recommend at that time the need for permanent pacemaker placement pending further evaluation of her clinical course status post adjustment of her medications, etc. At the moment she appears to be awake and alert. She remains with an element of a sinus bradycardia although not as bradycardic as she previously was reported. Her beta-anatoliy will remain on hold at this time as well as other rate limiting medications. She will be followed for any other concerns and/or needs as deemed appropriate. (2) Uncontrolled hypertension: PLAN: She has a history of hypertension. There is been concerns of her blood pressure not being well controlled. Apparently there is been concerns that she has not tolerated hydralazine therapy secondary to nausea. At the moment her medications are being adjusted and her hydralazine has been placed on hold. She is also being evaluated by nephrology for input as to how to assist with her blood pressure control. (3) Diastolic congestive heart failure: PLAN: She has a history of diastolic mediated CHF. The moment she appears without any acute symptoms. She will continue her medicines as best as possible taking into consideration her other concerns. (4) HLD (hyperlipidemia): PLAN: At the present time she is continuing nonstatin medical therapy. Addt'l Comments Overall, at the present time, she will continue to be monitored, her medications will be adjusted as deemed appropriate, she will continue with input from the [facility] and nephrology. There are no immediate plans for additional cardiovascular diagnostic studies/intervention at this time pending a change in the patient's clinical course or other objective findings Thank you for allowing me to participate in the care of your patient. Please do n't hesitate to call if any issues arise. This note was generated using a voice recognition system and there may be incorrect words, spelling or punctuation that were not noted when reviewing the office note prior to saving. Procedure Criteria Type of Procedure Procedure Type: Elective Elective Risks - COVID COVID Risk Discussion: The surgeon/proceduralist and patient have discussed in detail the risk of exposure to and/or potential harm posed by the COVID-19 virus with having a surgery/procedure at this time versus the risk of delaying the surgery/proced ure. It is not possible to know either the risk of delaying the surgery or procedure or chance of getting an infection with perfect accuracy, but a joint decision was made between the patient and the surgeon/proceduralist to proceed at this time with the scheduled surgery/procedure as indicated on the consent form.
--- NOTE | 2022-07-05 09:14 | PN.RENAL_ITS ---
Subjective Subjective Following for MALATHI superimposed on CKD Patient is sitting in recliner chair. Reports feeling better today. States had bowel movement. Denies any nausea or vomiting. States edema to lower legs much improved. Objective Data Objective Data Vital Signs: Vital Signs Temp Pulse Resp BP Pulse Ox O2 Del Method O2 Flow Rate 97.9 F 56 L 14 148/42 H 93 Nasal Cannula 2 07/05/22 08:21 07/05/22 08:21 07/05/22 08:21 07/05/22 08:21 07/05/22 08:21 07/05/22 08:21 07/05/22 08:21 Oxygen Flow Rate (L/min) 2 Oxygen Delivery Method Nasal Cannula Weight: 103.691 kg Body Mass Index (BMI) 43.2 Intake & Output: Intake and Output for Last 24 Hours 07/03/22 07/04/22 07/05/22 23:59 23:59 23:59 Intake Total 240 / 240 240 / 240 Output Total 400 / 400 0 / 0 Balance -160 / -160 240 / 240 0 / 0 Lab / Micro Data Result Diagrams: 07/05/22 06:51 07/05/22 06:51 Labs: Laboratory Results - last 24 hr 07/04/22 10:28: POC Glucose 175 H 07/04/22 10:55: Troponin I High Sens 12 07/04/22 12:50: Troponin I High Sens 12 07/04/22 15:10: POC Glucose 183 H 07/04/22 16:27: Troponin I High Sens 07/04/22 19:02: POC Glucose 125 H 07/04/22 22:44: POC Glucose 139 H 07/05/22 06:51: WBC 11.1 H, RBC 4.02 L, Hgb 11.7 L, Hct 36.5 L, MCV 90.8, MCH 29.1, MCHC 32.1, RDW Std Deviation 46.0 H, RDW Coeff of Pedro 13.8, Plt Count 235, MPV 9.6, Immature Gran % (Auto) 0.500, Neut % (Auto) 58.5, Lymph % (Auto) 29.3, [place] % (Auto) 8.7, Eos % (Auto) 2.5, Baso % (Auto) 0.5, Absolute Neuts (auto) 6.5, Absolute Lymphs (auto) 3.24, Nucleated RBC % 0 07/05/22 06:51: Sodium 136, Potassium 4.1, Chloride 101, Carbon Dioxide 31.0, An ion Gap 4 L, BUN 28 H, Creatinine 1.39 H, Estim Creat Clear Calc 22.33, Est GFR (MDRD) Af Amer 46 L, Est GFR (MDRD) Non-Af 38 L, BUN/Creatinine Ratio 20.1 H, Glucose 104, Calcium 9.7 07/05/22 06:59: POC Glucose 103 Micro: Microbiology 07/02/22 12:55 Interface Orders Rapid RSV (DFA) - Final 07/02/22 11:55 Nasal Secretion SARS-CoV-2 & FLU Antigen (Rapid) - Final Physical Exam Narrative Alert and oriented x3, no apparent distress S1, S2, rhythm rate regular Lung sounds clear anteriorly and posteriorly. No rhonchi or rales appreciated Abdomen soft, nontender, positive bowel sounds x4 quadrant No pitting edema noted bilateral lower legs Assessment & Plan Assessment/Plan (1) Hypertension: (2) Diastolic congestive heart failure: (3) Chronic kidney disease, stage 3a: (4) Bradycardia: (5) MALATHI (acute kidney injury): PLAN: Plan - MALATHI on CKD stage III; serum creatinine was 1.2 mg/dL on admission and peaked 1.41 mg/dL yesterday. Today SCr 1.39mg/dL. She has a history of chronic diastolic heart failure, echo in March 2022 EF 60% with stage II diastolic dysfunction therefore not surprising to see fluctuating serum creatinine levels. Overall renal function is stable and near baseline. - baseline SCr ~1-1.2mg/dL. -Hypertension; blood pressures have improved. SBP pre-bp meds this morning 140s. On amlodipine 10 mg daily, lisinopril 20 mg daily. Carvedilol and hydralazine 100 mg on hold. No changes today. Renal Doppler in September 2021 and again May 2022 negative for any renal artery stenosis. From a volume standpoint, patient does appear to be compensated and no LE edema. She was receiving furosemide IV 40 mg daily but switched to oral yesterday. She does report appetite has been poor, patient reports she does not like hospital food and had been experiencing nausea with constipation last few days. Patient had BM yesterday. To restart back on furosemide 40 mg tomorrow. May need to decide on diuretic on day-to-day basis. Patient does not take Lasix daily at home, she takes Lasix as needed with weight gain and/or worsening lower extremity edema - Cardiology/EP consulted for bradycardia, carvedilol is now on hold. Heart rates improved off betablocker. No plan for intervention or PPP at this time.
--- NOTE | 2022-07-05 10:00 | PN.HOSP_ITS ---
Subjective Subjective Patient seen and examined. She denied any dizziness, lightheadedness, palpitations, nausea, vomiting or diarrhea. Review of systems is otherwise negative. Her hydralazine and metoprolol are on hold. She is mildly bradycardic today, with HR of 56 at time of review. She is otherwise hemodynamically stable. Objective Data Objective Data Vital Signs: Vital Signs Temp Pulse Resp BP Pulse Ox O2 Del Method O2 Flow Rate 97.9 F 56 L 14 148/42 H 93 Nasal Cannula 2 07/05/22 08:21 07/05/22 08:21 07/05/22 08:21 07/05/22 08:21 07/05/22 08:21 07/05/22 08:21 07/05/22 08:21 Oxygen Flow Rate (L/min) 2 Oxygen Delivery Method Nasal Cannula Weight: 228 lb 9.592 oz Body Mass Index (BMI) 43.2 Intake & Output: Intake and Output for Last 24 Hours 07/03/22 07/04/22 07/05/22 23:59 23:59 23:59 Intake Total 240 / 240 240 / 240 Output Total 400 / 400 0 / 0 Balance -160 / -160 240 / 240 0 / 0 Lab / Micro Data Result Diagrams: 07/05/22 06:51 07/05/22 06:51 Labs: Laboratory Results - last 24 hr 07/04/22 10:28: POC Glucose 175 H 07/04/22 10:55: Troponin I High Sens 12 07/04/22 12:50: Troponin I High Sens 07/04/22 15:10: POC Glucose 183 H 07/04/22 16:27: Troponin I High Sens 07/04/22 19:02: POC Glucose 125 H 07/04/22 22:44: POC Glucose 139 H 07/05/22 06:51: WBC 11.1 H, RBC 4.02 L, Hgb 11.7 L, Hct 36.5 L, MCV 90.8, MCH 29.1, MCHC 32.1, RDW Std Deviation 46.0 H, RDW Coeff of Pedro 13.8, Plt Count 235, MPV 9.6, Immature Gran % (Auto) 0.500, Neut % (Auto) 58.5, Lymph % (Auto) 29.3, [place] % (Auto) 8.7, Eos % (Auto) 2.5, Baso % (Auto) 0.5, Absolute Neuts (auto) 6.5, Absolute Lymphs (auto) 3.24, Nucleated RBC % 0 07/05/22 06:51: Sodium 136, Potassium 4.1, Chloride 101, Carbon Dioxide 31.0, Anion Gap 4 L, BUN 28 H, Creatinine 1.39 H, Estim Creat Clear Calc 22.33, Est GFR (MDRD) Af Amer 46 L, Est GFR (MDRD) Non-Af 38 L, BUN/Creatinine Ratio 20.1 H , Glucose 104, Calcium 9.7 07/05/22 06:59: POC Glucose 103 Micro: Microbiology 07/02/22 12:55 Interface Orders Rapid RSV (DFA) - Final 07/02/22 11:55 Nasal Secretion SARS-CoV-2 & FLU Antigen (Rapid) - Final Physical Exam Const alert, oriented x3 and no apparent distress Constitutional Narrative: obese General Appearance: cooperative HEENT normocephalic, head/scalp atraumatic, EAC's normal and moist oral mucous membranes Head and Scalp: normocephalic Mouth: oral and palatal mucosa normal Eyes PERRL, EOMs intact bilaterally and conjunctivae normal Neck no lymphadenopathy and supple Resp Resp Narrative: diminished breath sounds bibasally, few crackles bibasally, no crackles. On 2L of oxygen by nasal canula Cardio regular rhythm, S1 normal heart sound, S2 normal heart sound and no murmurs Cardio Narrative: mildly bradycardic GI normal to inspection, nondistended, normoactive bowel sounds, soft to palpation, non-tender and non-distended Extremity normal to inspection, full ROM, normal capillary refill, no clubbing, cyanosis or edema and no calf tenderness Neuro oriented x3, CN's II-XII intact bilaterally, moves all extremities, no focal motor deficits and no sensory deficits noted Sensorium / Orientation: awake and alert Motor Exam: strength 5/5 throughout and general weakness Psych thought process normal Assessment & Plan Assessment/Plan (1) Uncontrolled hypertension: PLAN: Plan # Hypertension * carvedilol and hydralazine held due to bradycardic episode which was thought to be a vasovagal episode * on lisinopril * IV hydralazine prn * * #Hypoxia: * on 2L of oxygen. * Chest x-ray showed atelectasis but BNP is mildly elevated and in setting of bilateral lower extremity edema, there may be some fluid overload. * now on PO lasix 40mg daily * respiratory panel negative. covid test negative. #Bradycardia * has had mild bradycardia since admission, with HR in the 50s * HR went down to the 30s yesterday, and had associated dizziness and nausea. * carvedilol and hydralazine on hold * cardiology on board; think it is a vaso vagal episode. * #Type 2 diabetes mellitus: * Insulin sliding scale. On nateglinide * Accu-Cheks AC at bedtime #Acute on chronic HFpEF * BNP mildly elevated. Has EF of around 60% with stage II diastolic dysfunction. * on PO lasix 40mg daily * #History of breast cancer s/p lumpectomy. On anastrozole #CKD stage III: Creatinine at baseline. Will monitor. #Depressed mood * patient is feeling better today, and says she doesnt feel depressed today. * #DVT prophylaxis: Lovenox renally dosed CODE STATUS: DNR CCA no intubation * Charges/Coding Visit Charges Inpatient E&M: 81244 Subs Hosp L2
[2022-07-05] MEDS: Cholecalciferol (Vit D3) 125 MCG CAPSULE (5,000 UNITS) PO (11:05)
[2022-07-05] MEDS: Lisinopril 20 MG Tablet PO (11:05)
[2022-07-05 11:45] LABS: Bedside Glucose 162 mg/dL (74-106)
--- NOTE | 2022-07-05 13:45 | CASEMGMT ---
SHAWN RAINEY back to discuss discharge planning with patient. Mena is currently on oxygen, SHAWN RAINEY reviewd DME agencies with patient should she require oxygen at discharge. Patient would like [employer]. Patient plan is to return home with resumption of HHC with [facility] for nursing and therapy. Green sheet on chart.
[2022-07-05 17:45] LABS: Bedside Glucose 128 mg/dL (74-106)
[2022-07-05] MEDS: Latanoprost 0.005% 1 Bottle 1 DRP EACH EYE (21:01)
[2022-07-05 22:35] LABS: Bedside Glucose 158 mg/dL (74-106)
[2022-07-06] VITALS (10 sets, daily range): BP systolic 150–190; BP diastolic 40–55; PULSE 57–84; RESP 16–19; TEMP 36.4–37.1; O2SAT 92–97
[2022-07-06] MEDS: Ipratropium/Albuterol Sulfate 3 ML AMPUL.NEB INHALATION (07:21)
[2022-07-06 07:25] LABS: Bedside Glucose 108 mg/dL (74-106)
[2022-07-06 07:36] LABS: Absolute Lymphocyte Count 3.03 X10^3/uL (0.83-4.51); Absolute Neutrophil Count 5.2 X10^3/uL (2.0-7.7); Basophil# 0.07 X10^3/uL; Basophil% 0.7 % (0-1); Eosinophil# 0.24 X10^3/uL; Eosinophils% 2.5 % (0-5); Hematocrit 35.3 % (37-47); Hemoglobin 11.5 g/dL (12.0-15.0); Lymphocyte # 3.03 X10^3/ul (0.83-4.51); Mean Corp Hgb Conc 32.6 g/dL (32-36); Mean Corpuscular Hgb 29.3 pg (27.0-32.0); Mean Corpuscular Volume 90.1 fL (81-99); Mean Platelet Vol. 10.1 fl (6.2-12.0); Monocyte# 0.93 X10^3/uL; Monocyte% 9.8 % (0-10); NRBC Flagged by Analyzer 0 % (0-5); Neutrophil # 5.18 X10^3/uL (2.7-7.7); Neutrophil % 54.7 % (47-70); Platelet Count 222 K/mm3 (150-450); RBC Distribution Width SD 46.5 fl (35.1-43.9); Red Blood Count 3.92 M/mm3 (4.2-5.4); White Blood Count 9.5 K/mm3 (4.4-11.0)
[2022-07-06 08:01] LABS: Anion Gap 5 (5-15); BUN 31 mg/dL (7-18); Calcium,Total 9.7 mg/dL (8.5-10.1); Chloride 102 mmol/L (98-107); Creatinine, Serum 1.24 mg/dL (0.55-1.02); EST Glomerular Filtration Rate 44 mL/min (>60); Est Glom Filt Rate - Afr Amer 53 mL/min (>60); Estimated Creatinine Clearance 25.03 ml/min; Glucose 108 mg/dL (74-106); Potassium 4.2 mmol/L (3.5-5.1); Sodium Level 136 mmol/L (136-145)
[2022-07-06] MEDS: Ascorbic Acid 500 MG Tablet 1500 MG PO (08:49)
[2022-07-06] MEDS: Enoxaparin 30 MG/0.3 ML Syringe SC (08:49)
[2022-07-06] MEDS: Aspirin 81 MG TAB.CHEW PO (08:49)
[2022-07-06] MEDS: Anastrozole 1 MG TABLET PO (08:49)
[2022-07-06] MEDS: amLODIPine 5 MG Tablet 10 MG PO (08:50)
[2022-07-06] MEDS: Lisinopril 20 MG Tablet PO (08:50)
[2022-07-06] MEDS: Furosemide 40 MG Tablet PO (08:50)
[2022-07-06] MEDS: Famotidine 20 MG Tablet PO (08:50)
[2022-07-06] MEDS: NATEGLINIDE 60 MG TABLET PO (08:52)
--- NOTE | 2022-07-06 10:16 | PN.HOSP_ITS ---
Subjective Subjective Patient seen and examined. She complains of feeling generally weak. she denies any lightheadedness or dizziness. Review of systems is otherwise negative. She has remained hemodynamically stable. Objective Data Objective Data Vital Signs: Vital Signs Temp Pulse Resp BP Pulse Ox O2 Del Method O2 Flow Rate 98.7 F 65 16 162/41 H 94 Nasal Cannula 2 07/06/22 08:47 07/06/22 08:47 07/06/22 08:47 07/06/22 08:47 07/06/22 08:47 07/06/22 08:47 07/06/22 08:47 Oxygen Flow Rate (L/min) 2 Oxygen Delivery Method Nasal Cannula Weight: 228 lb 9.592 oz Body Mass Index (BMI) 43.2 Intake & Output: Intake and Output for Last 24 Hours 07/04/22 07/05/22 07/06/22 23:59 23:59 23:59 Intake Total 240 / 240 885 / 885 Output Total 0 / 0 Balance 240 / 240 885 / 885 Lab / Micro Data Result Diagrams: 07/06/22 06:59 07/06/22 06:59 Labs: Laboratory Results - last 24 hr 07/05/22 11:07: POC Glucose 162 H 07/05/22 17:20: POC Glucose 128 H 07/05/22 20:59: POC Glucose 158 H 07/06/22 06:43: POC Glucose 108 H 07/06/22 06:59: WBC 9.5, RBC 3.92 L, Hgb 11.5 L, Hct 35.3 L, MCV 90.1, MCH 29.3, MCHC 32.6, RDW Std Deviation 46.5 H, RDW Coeff of Pedro 14.0, Plt Count 222, MPV 10.1, Immature Gran % (Auto) 0.300, Neut % (Auto) 54.7, Lymph % (Auto) 32.0, [place] % (Auto) 9.8, Eos % (Auto) 2.5, Baso % (Auto) 0.7, Absolute Neuts (auto) 5.2, Absolute Lymphs (auto) 3.03, Nucleated RBC % 0 07/06/22 06:59: Sodium 136, Potassium 4.2, Chloride 102, Carbon Dioxide 29.0, Anion Gap 5, BUN 31 H, Creatinine 1.24 H, Estim Creat Clear Calc 25.03, Est GFR (MDRD) Af Amer 53 L, Est GFR (MDRD) Non-Af 44 L, BUN/Creatinine Ratio 25.0 H, Glucose 108 H, Calcium 9.7 Micro: Microbiology 07/02/22 12:55 Interface Orders Rapid RSV (DFA) - Final 07/02/22 11:55 Nasal Secretion SARS-CoV-2 & FLU Antigen (Rapid) - Final Physical Exam Const alert, oriented x3 and no apparent distress Constitutional Narrative: obese General Appearance: cooperative HEENT normocephalic, head/scalp atraumatic, EAC's normal and moist oral mucous membranes Head and Scalp: normocephalic Mouth: oral and palatal mucosa normal Eyes PERRL, EOMs intact bilaterally and conjunctivae normal Neck no lymphadenopathy and supple Resp Resp Narrative: diminished breath sounds bibasally, few crackles bibasally, no crackles. On 2L of oxygen by nasal canula Cardio regular rate, regular rhythm, S1 normal heart sound, S2 normal heart sound and no murmurs GI normal to inspection, nondistended, normoactive bowel sounds, soft to palpation, non-tender and non-distended Extremity normal to inspection, full ROM, normal capillary refill, no clubbing, cyanosis or edema and no calf tenderness Skin General Skin Exam: no breakdown Neuro oriented x3, CN's II-XII intact bilaterally, moves all extremities, no focal motor deficits and no sensory deficits noted Sensorium / Orientation: awake and alert Motor Exam: strength 5/5 throughout and general weakness Psych thought process normal Assessment & Plan Assessment/Plan (1) Uncontrolled hypertension: PLAN: Plan # Hypertension * carvedilol and hydralazine held due to bradycardic episode which was thought to be a vasovagal episode * on lisinopril * IV hydralazine prn * * #Hypoxia: * remains on 2L of oxygen. * Chest x-ray showed atelectasis but BNP is mildly elevated and in setting of bilateral lower extremity edema, there may be some fluid overload. * now on PO lasix 40mg daily * respiratory panel negative. covid test negative. * wean off oxygen. #Bradycardia * has had mild bradycardia since admission, with HR in the 50s * HR went down to the 30s yesterday, and had associated dizziness and nausea. * carvedilol and hydralazine on hold * cardiology on board; think it is a vaso vagal episode. * HR in the 60s now * #Type 2 diabetes mellitus: * Insulin sliding scale. On nateglinide * Accu-Cheks AC at bedtime #Acute on chronic HFpEF * BNP mildly elevated. Has EF of around 60% with stage II diastolic dysfunction. * on PO lasix 40mg daily * resolving * #History of breast cancer s/p lumpectomy. On anastrozole #CKD stage III: Creatinine at baseline. Will monitor. #Depressed mood * patient is feeling better today and her mood is much better * #DVT prophylaxis: Lovenox renally dosed CODE STATUS: DNR CCA no intubation * Disposition: for dc home likely tomorrow Charges/Coding Visit Charges Inpatient E&M: 38014 Subs Hosp L2
[2022-07-06 14:10] LABS: Bedside Glucose 97 mg/dL (74-106)
--- NOTE | 2022-07-06 14:36 | NURSING ---
Patient refusing to be repositioned Q2 hours
[2022-07-06 18:56] LABS: Bedside Glucose 96 mg/dL (74-106)
[2022-07-06] MEDS: Latanoprost 0.005% 1 Bottle 1 DRP EACH EYE (23:59)
[2022-07-07] VITALS (9 sets, daily range): BP systolic 144–163; BP diastolic 36–50; PULSE 52–78; RESP 16–18; TEMP 36.4–36.6; O2SAT 91–96
[2022-07-07 01:00] LABS: Bedside Glucose 95 mg/dL (74-106)
[2022-07-07 06:12] LABS: Absolute Lymphocyte Count 2.93 X10^3/uL (0.83-4.51); Absolute Neutrophil Count 3.9 X10^3/uL (2.0-7.7); Basophil# 0.06 X10^3/uL; Basophil% 0.7 % (0-1); Eosinophil# 0.32 X10^3/uL; Hematocrit 35.8 % (37-47); Hemoglobin 11.6 g/dL (12.0-15.0); Lymphocyte # 2.93 X10^3/ul (0.83-4.51); Lymphocyte % 36.3 % (19-41); Mean Corp Hgb Conc 32.4 g/dL (32-36); Mean Corpuscular Hgb 29.4 pg (27.0-32.0); Mean Corpuscular Volume 90.6 fL (81-99); Mean Platelet Vol. 10.4 fl (6.2-12.0); Monocyte# 0.88 X10^3/uL; Monocyte% 10.9 % (0-10); NRBC Flagged by Analyzer 0 % (0-5); Neutrophil # 3.86 X10^3/uL (2.7-7.7); Neutrophil % 47.7 % (47-70); Platelet Count 219 K/mm3 (150-450); RBC Distribution Width CV 13.9 % (11.6-14.6); RBC Distribution Width SD 46.3 fl (35.1-43.9); Red Blood Count 3.95 M/mm3 (4.2-5.4); White Blood Count 8.1 K/mm3 (4.4-11.0)
[2022-07-07 06:51] LABS: Anion Gap 6 (5-15); BUN 35 mg/dL (7-18); BUN/Creat Ratio 28.9 RATIO (10-20); Calcium,Total 9.7 mg/dL (8.5-10.1); Chloride 101 mmol/L (98-107); Creatinine, Serum 1.21 mg/dL (0.55-1.02); EST Glomerular Filtration Rate 45 mL/min (>60); Est Glom Filt Rate - Afr Amer 54 mL/min (>60); Estimated Creatinine Clearance 25.65 ml/min; Glucose 115 mg/dL (74-106); Sodium Level 136 mmol/L (136-145)
[2022-07-07] MEDS: Ipratropium/Albuterol Sulfate 3 ML AMPUL.NEB INHALATION (07:26)
[2022-07-07 07:35] LABS: Bedside Glucose 110 mg/dL (74-106)
[2022-07-07] MEDS: Famotidine 20 MG Tablet PO (08:23)
[2022-07-07] MEDS: Ascorbic Acid 500 MG Tablet 1500 MG PO (08:23)
[2022-07-07] MEDS: Enoxaparin 30 MG/0.3 ML Syringe SC (08:23)
[2022-07-07] MEDS: NATEGLINIDE 60 MG TABLET PO ×2 (08:23→11:05)
[2022-07-07] MEDS: Aspirin 81 MG TAB.CHEW PO (08:23)
[2022-07-07] MEDS: amLODIPine 5 MG Tablet 10 MG PO (08:24)
[2022-07-07] MEDS: Lisinopril 20 MG Tablet PO (08:24)
[2022-07-07] MEDS: Anastrozole 1 MG TABLET PO (08:25)
[2022-07-07] MEDS: Furosemide 40 MG Tablet PO (08:25)
[2022-07-07] MEDS: Bisacodyl 5 MG Tablet PO (08:31)
[2022-07-07] MEDS: Cholecalciferol (Vit D3) 125 MCG CAPSULE (5,000 UNITS) PO (11:05)
[2022-07-07 11:40] LABS: Bedside Glucose 123 mg/dL (74-106)
--- NOTE | 2022-07-07 14:02 | DS.PCM_ITS ---
Providers Date of Admission: 07/03/22 Date of Discharge: 07/07/22 Primary Care Physician: Dr. Martina Lal, Consultations 07/04/22 10:24 Consult: Cardiology Routine Consulting Provider: Patricia Valenzuela Reason for Consult: bradycardia EMERGENT Consult: No Notified: Yes Date Notified: 07/04/22 Time Notified: 10:24 Method of Notification: Text 07/04/22 12:04 Consult: Nephrology Routine Consulting Provider: Jose Maria Hudson Reason for Consult: CKD stage III, Cr at baseline. family request EMERGENT Consult: No MD Notified: Yes Date Notified: 07/04/22 Time Notified: 12:04 Method of Notification: Text Reason For Visit: HYPOXIA Diagnosis Discharge Diagnosis (1) Uncontrolled hypertension: Status: Acute Code(s): I10 - Essential (primary) hypertension Plan # Hypertension * carvedilol and hydralazine held due to bradycardic episode which was thought to be a vasovagal episode * on lisinopril * IV hydralazine prn * * #Hypoxia: * remains on 2L of oxygen. * Chest x-ray showed atelectasis but BNP is mildly elevated and in setting of bilateral lower extremity edema, there may be some fluid overload. * now on PO lasix 40mg daily * respiratory panel negative. covid test negative. * wean off oxygen. #Bradycardia * has had mild bradycardia since admission, with HR in the 50s * HR went down to the 30s yesterday, and had associated dizziness and nausea. * carvedilol and hydralazine on hold * cardiology on board; think it is a vaso vagal episode. * HR in the 60s now * #Type 2 diabetes mellitus: * Insulin sliding scale. On nateglinide * Accu-Cheks AC at bedtime #Acute on chronic HFpEF * BNP mildly elevated. Has EF of around 60% with stage II diastolic dysfunction. * on PO lasix 40mg daily * resolving * #History of breast cancer s/p lumpectomy. On anastrozole #CKD stage III: Creatinine at baseline. Will monitor. #Depressed mood * patient is feeling better today and her mood is much better * #DVT prophylaxis: Lovenox renally dosed CODE STATUS: DNR CCA no intubation * Disposition: for dc home likely tomorrow Medications at Discharge Home Medications latanoprost 0.005 % eye drops (Xalatan) 1 drp EACH EYE QHS Cataracts/Dry eye 07/29/14 omega-3 fatty acids-fish oil 300 mg-1,000 mg capsule 1 ea PO DAILY SUPPLEMENT 07/29/14 nateglinide 60 mg tablet 60 mg PO TID BLOOD GLUCOSE 08/27/17 aspirin 81 mg chewable tablet 81 mg PO DAILY HEART HEALTH 06/26/18 cholecalciferol (vitamin D3) 125 mcg (5,000 unit) capsule 125 mcg PO DAILY SUPPLEMENT 04/01/22 liver supplement 1 cap PO QHS SUPPLEMENT 04/01/22 sodium chloride 0.65 % nasal spray aerosol (Deep Sea Nasal) 2 spray NASAL TID PRN PRN NASAL DRYNESS #0 mL 05/23/22 melatonin 3 mg capsule 3 mg PO HS PRN Sleep 06/04/22 Colloidal Silver 1 tsp PO DAILY SUPPLEMENT 06/11/22 cinnamon bark 500 mg capsule (Cinnamon) 500 mg PO DAILY SUPPLEMENT 06/11/22 ondansetron 4 mg disintegrating tablet 4 mg PO UD PRN nausea/vomiting 06/11/22 anastrozole 1 mg tablet 1 mg PO DAILY #90 tabs 06/18/22 acetaminophen 500 mg tablet 1,000 mg PO Q6H PRN Pain 07/02/22 amlodipine 10 mg tablet 10 mg PO DAILY blood pressure 07/02/22 ascorbic acid (vitamin C) 500 mg tablet 500 mg PO BID supplement 07/02/22 famotidine 20 mg tablet (Pepcid) 20 mg PO DAILY acid reflux 07/02/22 furosemide 40 mg tablet 40 mg PO DAILY FLUID 07/02/22 lisinopril 20 mg tablet 20 mg PO DAILY BLOOD PRESSURE 07/02/22 lorazepam 0.5 mg tablet 0.5 mg PO DAILY PRN Anxiety 07/02/22 polyethylene glycol 3350 17 gram oral powder packet 17 g PO QHS STOOL 07/02/22 potassium chloride 20 mEq tablet,extended release 20 meq PO DAILY #30 tabs 07/07/22 Hospital Course Operations None Procedures None Summary of Care Provided Minutes Spent on Discharge: 52 Hospital Course: DEBBIE KENNEY, is a 86 F? with a PMh as outlined who presents via the ED on 07/02/2022 with a complaint of elevated blood pressure. She also had shakiness of her extremities and nausea.? She said her nausea was exacerbated by hydralazine which she was taking for elevated blood pressure.? She claims compliance with medication and states that hydralazine dose was recently increased because of poorly controlled blood pressure.? She denied any chest pain, palpitations, dizziness, abdominal pain or diarrhea.? Daughter had a blood pressure log and showed that over the past several days her blood pressure has been in the 180s and 190s systolic.? She was also noted to be hypoxic in the ED requiring 3 L of oxygen.? Daughter said patient had lower extremity swelling which she had been told was about 2+ by patient's home nurse.? Patient denied any history of heart failure and states she had been placed on Lasix as needed by her subsorter and said it was as needed because of a CKD stage III. Vitals with temperature of 97.3 Fahrenheit with pulse rate of 59, blood pressure 151/57 and respiratory rate of 16.? She was saturating at 94% on 2 L of oxygen.? CBC and BMP were unremarkable and BNP was 228.? Urinalysis showed no evidence of UTI.? Chest x-ray showed poor inspiration and some bibasilar atelectasis.? She has been admitted to be managed for poorly controlled blood pressure and hypoxia due to acute on chronic heart failure with preserved ejection fraction. She was diuresed with IV Lasix. She was placed back on her blood pressure medications. Her blood pressure gradually improved. Hospital course was complicated by bradycardia and she bradycardia down into the 30s and 40s. Cardiology was consulted and this was thought to be due to vasovagal effect on her medications. Hydralazine and metoprolol were discontinued. Her blood pressure remained fairly stable and patient did well after that. Shortness of breath also improved and resolved. Patient remains anxious during her admission and said it was because she had lost all her independence and ability to socialize with people and felt like she did not have much to live for. Patient did remain stable and was discharged home on 07/07/2022. She was discharged on amlodipine and lisinopril as well as Lasix and was given a prescription for p.o. potassium. As mentioned her carvedilol and hydralazine were discontinued. Patient was counseled that it was difficult to adjust the doses of her other medications in light of her impaired kidney function as lisinopril could not be titrated upwards because of that. She was counseled to continue keeping a blood pressure log and to call her primary care doctor and subsorter normal blood pressure readings for medications to be adjusted as needed if possible. Patient was seen and examined prior to discharge. She had no active complaints. Home medications reviewed and reconciled. Physical Exam Const alert, oriented x3 and no apparent distress Constitutional Narrative: obese General Appearance: cooperative, comfortable and well kempt Orientation / Consciousness: awake Exam Limitations: no limitations HEENT normocephalic, head/scalp atraumatic, hearing grossly normal bilaterally and moist oral mucous membranes Mouth: oral and palatal mucosa normal Eyes PERRL, EOMs intact bilaterally and conjunctivae normal Neck no lymphadenopathy and supple Resp Resp Narrative: diminished breath sounds bibasally, few crackles bibasally, no crackles.on room air Cardio regular rate, regular rhythm, S1 normal heart sound, S2 normal heart sound and no murmurs Cardio Narrative: bradycardia had resolved GI normal to inspection, nondistended, normoactive bowel sounds, soft to palpation, non-tender and non-distended Extremity normal to inspection, full ROM, normal capillary refill, no clubbing, cyanosis or edema and no calf tenderness Skin General Skin Exam: no breakdown Neuro oriented x3, CN's II-XII intact bilaterally, moves all extremities, no focal motor deficits and no sensory deficits noted Sensorium / Orientation: awake and alert Motor Exam: strength 5/5 throughout and general weakness Psych thought process normal Mood & Affect: depressed Weight / BMI Weight Weight: 228 lb 9.592 oz Body Mass Index (BMI) 43.2 ABG / Lab / Microbiology Data Result Diagrams: 07/07/22 05:19 07/07/22 05:19 Laboratory: Laboratory Results - last 24 hr 07/06/22 12:12: POC Glucose 97 07/06/22 17:05: POC Glucose 96 07/07/22 00:01: POC Glucose 95 07/07/22 05:19: WBC 8.1, RBC 3.95 L, Hgb 11.6 L, Hct 35.8 L, MCV 90.6, MCH 29.4, MCHC 32.4, RDW Std Deviation 46.3 H, RDW Coeff of Pedro 13.9, Plt Count 219, MPV 10.4, Immature Gran % (Auto) 0.400, Neut % (Auto) 47.7, Lymph % (Auto) 36.3, Mon o % (Auto) 10.9 H, Eos % (Auto) 4.0, Baso % (Auto) 0.7, Absolute Neuts (auto) 3.9, Absolute Lymphs (auto) 2.93, Nucleated RBC % 0 07/07/22 05:19: Sodium 136, Potassium 4.0, Chloride 101, Carbon Dioxide 29.0, Anion Gap 6, BUN 35 H, Creatinine 1.21 H, Estim Creat Clear Calc 25.65, Est GFR (MDRD) Af Amer 54 L, Est GFR (MDRD) Non-Af 45 L, BUN/Creatinine Ratio 28.9 H, Glucose 115 H, Calcium 9.7 07/07/22 06:35: POC Glucose 110 H 07/07/22 11:01: POC Glucose 123 H Microbiology: Microbiology 07/02/22 12:55 Interface Orders Rapid RSV (DFA) - Final 07/02/22 11:55 Nasal Secretion SARS-CoV-2 & FLU Antigen (Rapid) - Final D/C Instructions Discharge Diet: Low fat / Low cholesterol Weight Bearing Status: Weight bearing as tolerated Call your doctor if you observe: Fever of 101 or Higher, Shortness of breath, Dizziness, Swelling in the ankles, Chest pain and Increased palpitations (irregular heartbeat) Meaningful Use Info Meaningful Use Diagnoses (Choose all that apply): CHF CHF FREIDA/ARB ordered at discharge?: Yes Documented LVEF (%): 60 Discharge Plan Admission Admit Date/Time: 07/03/22 14:00 Primary Reason for Your Visit: bradycardia Attending Provider: Joie Gamez Primary Care Provider: Martina Lal Consulting Providers: Patricia Valenzuela ; Jose Maria Hudson Instructions Patient Instructions: ED Bradycardia Additional Instructions / Restrictions: carvedilol and hydralazine discontinued due to bradycardia. Continue on current dose of lisinopril, amlodipine and furosemide. TO continue keeping BP log to monitor BP; call PCP to adjust BP meds as needed. Limited options to give for BP meds due to kidney function and bradycardia. Discharge Orders/Prescriptions Prescriptions: New potassium chloride 20 mEq tablet extended release 20 meq PO DAILY Qty: 30 2RF Continued cholecalciferol (vitamin D3) 125 mcg (5,000 unit) capsule 125 mcg PO DAILY liver supplement 1 cap PO QHS ondansetron 4 mg tablet,disintegrating 4 mg PO UD PRN (Reason: nausea/vomiting) Rx Instructions: DISSOLVE ONE TABLET ON TONGUE EVERY 4 TO 6 HOURS NEEDED cinnamon bark [Cinnamon] 500 mg capsule 500 mg PO DAILY Colloidal Silver 1 tsp PO DAILY Label Comments: supplement melatonin 3 mg capsule 3 mg PO HS PRN (Reason: Sleep) anastrozole 1 mg tablet 1 mg PO DAILY Qty: 90 1RF latanoprost [Xalatan] 1 DROP bottle 1 drp EACH EYE QHS omega-3 fatty acids-fish oil 1 EACH capsule 1 ea PO DAILY Label Comments: supplement aspirin 81 mg tablet,chewable 81 mg PO DAILY Label Comments: PT'S LAST DOSE OF ASPIRIN WILL BE 04/26/2022 nateglinide 60 MG tablet 60 mg PO TID Label Comments: diabetes Deep Sea Nasal 0.65 % Aerosol,[place] 2 spray NASAL TID PRN PRN (Reason: NASAL DRYNESS) Qty: 0 0RF lisinopril 20 mg tablet 20 mg PO DAILY Label Comments: TAKE 1 TABLET BY MOUTH DAILY famotidine [Pepcid] 20 mg Tablet 20 mg PO DAILY lorazepam 0.5 mg tablet 0.5 mg PO DAILY PRN (Reason: Anxiety) Label Comments: Take one tablet by mouth daily. furosemide 40 mg tablet 40 mg PO DAILY Label Comments: TAKE 1 TABLET BY MOUTH DAILY polyethylene glycol 3350 17 gram Powder In Packet 17 g PO QHS acetaminophen 500 mg tablet 1,000 mg PO Q6H PRN (Reason: Pain) ascorbic acid (vitamin C) 500 mg tablet 500 mg PO BID amlodipine 10 mg tablet 10 mg PO DAILY Discontinued carvedilol 6.25 mg tablet 6.25 mg PO BID hydralazine 50 mg tablet 100 mg PO TID Rx Instructions: Hold for SBP less than 130 mmHg Referrals / Follow Up: Brent Kelley MD [Med Staff - Active Staff] - Within 2 Weeks Martina Lal DO [Primary Care Provider] - Within 1 Week Disposition Disposition (needs filled in before D/C Order can be placed): Home, Self Care Charges/Coding Visit Charges Inpatient E&M: 72827 Disch Hosp
== END 2022-07-07 15:48 | disposition home or self-care (01) | DRG 291 ==
LOC: ED 11:41 → PCU 11:58
PROVIDERS: Admitting Provider Student in an Organized Health Care Education/Training Program; Emergency Provider Emergency Medicine; PCP Internal Medicine; Visit Provider Student in an Organized Health Care Education/Training Program
DX: I13.0 Hypertensive heart and chronic kidney disease with heart failure and stage 1 through stage 4 chronic kidney disease, or unspecified chronic kidney disease (principal); I50.33 Acute on chronic diastolic (congestive) heart failure; J98.11 Atelectasis; E11.22 Type 2 diabetes mellitus with diabetic chronic kidney disease; N18.31 Chronic kidney disease, stage 3a; E78.5 Hyperlipidemia, unspecified; I44.0 Atrioventricular block, first degree; R00.1 Bradycardia, unspecified; R09.02 Hypoxemia; Z79.82 Long term (current) use of aspirin; Z79.84 Long term (current) use of oral hypoglycemic drugs; Z66 Do not resuscitate; Z79.811 Long term (current) use of aromatase inhibitors; Z85.3 Personal history of malignant neoplasm of breast
CPT/HCPCS: 36415; 71045; 80048; 80053; 81001; 82962; 83880; 84484; 85025; 87428; 87807; 93005; 94640; 97162; 97166; 97530; 97535; 99251; 99285; A4216; G0463; J1940; J2405

== ENCOUNTER 2022-07-13 18:48 | Inpatient (IN) | payer MEDICARE, SELFPAY ==
[2022-07-13 18:49] VITALS: BP 175/62; PULSE 89; RESP 18; TEMP 36.5; O2SAT 98; BMI 42.9
--- NOTE | 2022-07-13 20:13 | CT_ITS ---
INDICATION: llq pain, nausea EXAMINATION: CT ABDOMEN AND PELVIS WITHOUT CONTRAST - CT Abdomen And Pelvis W/O Contrast Injection TECHNIQUE: Helically acquired images were obtained of the abdomen and pelvis without oral or IV contrast. A radiation dose optimization technique was used for this scan. IV Contrast dosage and agent: None. Oral contrast: None. RADIATION DOSAGE (If Supplied By Facility): CTDIvol = ( 20.93 ) mGy, DLP = ( 1066.72 ) mGycm COMPARISON: 02/25/2022 FINDINGS: LOWER CHEST: Mild pleural-parenchymal scar at the LEFT lower lobe. Cardiac contour is normal. Valvular calcifications are present.. Pericardial thickening versus trace pericardial effusion. LIVER: The liver has normal configuration and density given the limitation of noncontrast exam. No focal mass. GALLBLADDER AND BILIARY TREE: Status post cholecystectomy. No evidence of ductal dilatation. PANCREAS: No focal cystic or solid mass. SPLEEN: Normal size without focal cystic or solid mass. ADRENAL GLANDS: LEFT adrenal nodule measures 2.6 x 2.1 cm with Hounsfield density of 30 Hounsfield units. RIGHT adrenal gland is normal. KIDNEYS AND URETERS: LEFT renal atrophy, RIGHT renal cysts are present. No calcifications or evidence of obstructive uropathy. No hydronephrosis. PERITONEUM: No ascites or free air. No other fluid collection. BOWEL: No evidence of acute appendicitis. No stomach or bowel distention, hiatal hernia is present. No focal inflammatory change. Scattered diverticula present. LYMPH NODES: No enlarged mesenteric or retroperitoneal lymph nodes. VESSELS: Diffuse aortic calcifications present throughout the aorta. No evidence of aneurysmal dilatation. URINARY BLADDER: Unremarkable. REPRODUCTIVE ORGANS: Postop changes of prior hysterectomy. ABDOMINAL WALL: 2 anterior abdominal wall periumbilical and infrahilar periumbilical fat-containing hernias without bowel involvement. Findings are stable. BONES: No lytic or blastic abnormality. CT/Abdomen/Pelvis without Cont IMPRESSION: 1. No masses bowel obstruction abscess fluid free air. 2. 2 ventral abdominal wall hernias without bowel involvement. Findings are stable. 3. Hiatal hernia. 4. Postop change of prior cholecystectomy. No ductal dilatation. 5. Enhancing LEFT adrenal nodule/mass without change. Consider short-term follow-up to assess stability, consider evaluation approximately 3-4 months, or tentatively evaluation with triple phase CT or MRI recommended. 6. No evidence of obstructive uropathy. LEFT renal atrophy. 7. RIGHT renal cyst without change. Electronically Signed: Justyn Mandujano MD at 21:48 EST ,
--- NOTE | 2022-07-13 20:16 | EDS_ITS ---
HPI History of Present Illness Chief Complaint: Weakness Informant: patient Onset/Context/Timing Onset: Days (2-3) Context: Gradual Onset Timing: Continuous Quality: weak Location: all over Current Severity: Severe Maximum Severity: Severe Worsened by: nothing Relieved by: nothing Associated Symptoms Associated Symptoms: nausea. sob at times. Narrative Narrative: Patient brought by daughter because she is extremely weak and unable to get around, progressively worsening over the last couple days. Has been in and out of the hospital recently for congestive heart failure, MALATHI related issues. Also has had very high blood pressures, all of this has caused several medication changes in the past month or 2, her pressures were high earlier in the week after being discharged from the hospital a week or so ago, and so Cardura was added just prior to her starting to feel very weak now. Her pressures have been better, 150s-180s systolic since then. Right now 175/162. She denies any fevers or chills. She has been nauseated from time to time, she has dyspnea from time to time but states that is not anything new. She denies any acute orthopnea. No chest pain. She cannot tell if she has abdominal pain or not, because she just feels so weak and nauseated. [facility] Medical History Abnormal cardiac enzyme level Ambulates with cane Arthritis Bilateral carotid artery stenosis Bilateral extracranial carotid artery stenosis Breast abscess Breast cancer, right breast (~03/2022) Cancer CHF (congestive heart failure) Difficulty swallowing Encounter for education GERD (gastroesophageal reflux disease) History of edema History of IBS History of renal disease History of steroid therapy HLD (hyperlipidemia) HTN (hypertension) Hyperlipidemia Hypertension Infected seroma, postoperative Left adrenal mass Leg cramps Non-smoker PONV (postoperative nausea and vomiting) Shortness of breath on exertion Sleep apnea Stage 3a chronic kidney disease (CKD) Type 2 diabetes mellitus Wears glasses Wears hearing aid Home Medications latanoprost 0.005 % eye drops (Xalatan) 1 drp EACH EYE QHS Cataracts/Dry eye 07/29/14 [History Last Taken 07/01/22] omega-3 fatty acids-fish oil 300 mg-1,000 mg capsule 1 ea PO DAILY SUPPLEMENT 07/29/14 [History Last Taken 07/01/22] aspirin 81 mg chewable tablet 81 mg PO DAILY HEART HEALTH 06/26/18 [History Last Taken 07/02/22] cholecalciferol (vitamin D3) 125 mcg (5,000 unit) capsule 125 mcg PO DAILY SUPPLEMENT 04/01/22 [History Last Taken 07/01/22] liver supplement 1 cap PO QHS SUPPLEMENT 04/01/22 [History Last Taken 07/01/22] sodium chloride 0.65 % nasal spray aerosol (Deep Sea Nasal) 2 spray NASAL TID PRN PRN NASAL DRYNESS #0 mL 05/23/22 [Rx Last Taken Unknown] melatonin 3 mg capsule 3 mg PO HS PRN Sleep 06/04/22 [History Last Taken Unknown] Colloidal Silver 1 tsp PO DAILY SUPPLEMENT 06/11/22 [History Last Taken 07/01/22] cinnamon bark 500 mg capsule (Cinnamon) 500 mg PO DAILY SUPPLEMENT 06/11/22 [History Last Taken 07/01/22] ondansetron 4 mg disintegrating tablet 4 mg PO UD PRN nausea/vomiting 06/11/22 [History Last Taken Unknown] acetaminophen 500 mg tablet 1,000 mg PO Q6H PRN Pain 07/02/22 [History Last Taken 06/28/22] amlodipine 10 mg tablet 10 mg PO DAILY blood pressure 07/02/22 [History Last Taken 07/02/22] ascorbic acid (vitamin C) 500 mg tablet 500 mg PO BID supplement 07/02/22 [History Last Taken 07/01/22] famotidine 20 mg tablet (Pepcid) 20 mg PO DAILY acid reflux 07/02/22 [History Last Taken 07/01/22] furosemide 40 mg tablet 40 mg PO DAILY FLUID 07/02/22 [History Last Taken 07/02/22] lisinopril 20 mg tablet 20 mg PO DAILY BLOOD PRESSURE 07/02/22 [History Last Taken 07/01/22] lorazepam 0.5 mg tablet 0.5 mg PO DAILY PRN Anxiety 07/02/22 [History Last Taken 07/02/22] polyethylene glycol 3350 17 gram oral powder packet 17 g PO QHS STOOL 07/02/22 [History Last Taken 07/01/22] potassium chloride 20 mEq tablet,extended release 20 meq PO DAILY #30 tabs 07/07/22 [Rx Last Taken Unknown] doxazosin 2 mg tablet (Cardura) 2 mg PO DAILY #30 tabs 07/10/22 [Rx Last Taken Unknown] melatonin 3 mg tablet 3 mg PO QHS 07/13/22 [History Last Taken Unknown] nateglinide 60 mg tablet 60 mg PO TID 07/13/22 [History Last Taken Unknown] Allergy/AdvReac Type Severity Reaction Status Date / Time morphine AdvReac Intermediate mental Verified 07/12/22 11:43 status change meperidine HCl [From Demerol] AdvReac Mild mental Verified 07/12/22 11:43 status change Family History (Reviewed 07/12/22 @ 11:43 by Rama Camara SCHOOL BUSINESS ADMINISTRATOR, SCHOOL BUSINESS ADMINISTRATOR-C) Brother Pancreatic cancer Diabetes Heart disease Lung cancer Hypertension Colon cancer Mother Hypertension Brother No problems noted. 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 housing: house Smoking Status: Never smoker alcohol intake: never substance use type: does not use what type of physical activity do you participate in: none seatbelt use: always do you feel safe at home: Yes ROS ROS ED Constitutional Constitutional ED: Reports fatigue, malaise, weakness, weight loss and other Details: Several pound weight loss in the past week since has been diuresing ; Denies chills or fever(s) Eyes Eyes: Denies change in vision or diplopia ENT ENT ED: Denies rhinorrhea or sore throat Cardiovascular Cardiovascular: Reports lightheadedness; Denies chest pain or palpitations Respiratory/Chest Respiratory/Chest: Reports dyspnea; Denies cough Gastrointestinal Gastrointestinal: Reports as per HPI and nausea; Denies diarrhea or vomiting Genitourinary Genitourinary ED: Reports urinary frequency; Denies dysuria or hematuria Musculoskeletal Musculoskeletal: Denies back pain, myalgias or neck pain Integumentary Denies abscess or rash Neurologic Neurologic: Denies headache(s), paresthesias or weakness Psychiatric Psychiatric: Denies anxiety or suicidal thoughts Endocrine Endocrinology: Reports polyuria; Denies polydipsia EXAM Physical Exam Const Vital Signs: 07/13/22 18:49 07/13/22 18:53 07/13/22 20:53 Temperature 97.7 F L Temperature Source Temporal Pulse Rate 89 84 Respiratory Rate 18 11 L Respiratory Effort Normal Respiratory Pattern Normal Blood Pressure 175/62 H 162/63 H Blood Pressure Mean 99 96 Pulse Ox 98 94 Oxygen Delivery Method Room Air Room Air 07/13/22 22:00 07/14/22 00:00 Temperature Temperature Source Pulse Rate 85 84 Respiratory Rate 10 L 14 Respiratory Effort Respiratory Pattern Blood Pressure 167/64 H 186/72 H Blood Pressure Mean 98 110 Pulse Ox 93 94 Oxygen Delivery Method Room Air Room Air Positive well nourished, well developed and obese Constitutional Narrative: Appears very malaised but in no distress General Appearance ED: well developed and NAD Nutritional Appearance: obese HEENT Reports moist mucous membranes normocephalic and atraumatic Eyes PERRL and EOMs intact bilaterally Neck full ROM, no lymphadenopathy, supple and no JVD Resp normal respiratory effort and clear to auscultation bilaterally Cardio regular rate, regular rhythm and no murmurs Rate: Negative for bradycardia or tachycardic GI non-distended GI Narrative: Tender medial aspect of the left lower quadrant. No other areas of focal tenderness. No guarding or rebound tenderness. Obesity limits the exam. Auscultation: normoactive bowel sounds Palpation: soft Back/Spine General Back: other FROM Extremity normal to inspection General Extremety ED: Yes edema; Negative for pulses abnormal or tenderness General Extremity: edema bilateral lower extremity Details: moderate; Negative for pulses abnormal Neuro oriented x3, CN's II-XII intact bilaterally and no sensory deficits noted Sensorium / Orientation: awake and alert Motor Exam: strength 5/5 throughout Psych Mood & Affect: anxious Skin no rashes or lesions noted and no wounds MDM MDM MDM Narrative Medical decision making narrative: Other than mild hypercalcemia, which the patient has had before, and mild prerenal azotemia which is likely due to the patient's recent aggressive diuresis, her work-up is normal/negative. Her potassium was 4.4 and slight hemolysis is noted, it would be reasonable to repeat this which is ordered. Her creatinine is 1.28 which is similar to baseline for her, urine shows no signs of infection, 1 view chest x-ray shows atelectasis versus possible infection in her left lower lobe on my interpretation, however the CT of the abdomen/pelvis that viewed this area shows old scarring and no acute infection. The CT of the abdomen/pelvis showed known left adrenal mass, no acute inflammatory abnormalities. The mass is unchanged. Her blood pressure has remained high in the 160s throughout her stay here in the ED. She does not have any focal neurologic symptoms or deficits. Does not appear to be clinically or radiographically in any significant congestive heart failure. The patient lives alone, she feels too weak to safely go home and is requesting admission. Discussed with hospitalist. Repeat potassium is 4.8 but also shows hemolysis. Lab Data Attestation: I reviewed the patient's lab results. Labs: Laboratory Results - last 24 hr 07/13/22 07/13/22 07/13/22 19:06 19:06 20:49 WBC 8.7 RBC 4.42 Hgb 13.1 Hct 39.8 MCV 90.0 MCH 29.6 MCHC 32.9 RDW Std Deviation 44.9 H RDW Coeff of Pedro 13.4 Plt Count 271 MPV 11.1 Immature Gran % (Auto) 0.100 Neut % (Auto) 51.9 Lymph % (Auto) 36.5 [place] % (Auto) 7.9 Eos % (Auto) 2.7 Baso % (Auto) 0.9 Absolute Neuts (auto) 4.5 Absolute Lymphs (auto) 3.16 Nucleated RBC % 0 Sodium 138 Potassium 4.4 Chloride 105 Carbon Dioxide 27.0 Anion Gap 6 BUN 30 H Creatinine 1.28 H Estim Creat Clear Calc 24.25 Est GFR (MDRD) Af Amer 51 L Est GFR (MDRD) Non-Af 42 L BUN/Creatinine Ratio 23.4 H Glucose 101 Calcium 10.3 H Total Bilirubin 0.80 AST 19 ALT 25 Alkaline Phosphatase 69 Troponin I High Sens 15 Total Protein 7.4 Albumin 3.3 Globulin 4.1 Albumin/Globulin Ratio 0.8 L Lipase 127 Urine Color Straw Urine Clarity Clear Urine pH 7.0 Ur Specific [place] 1.005 Urine Protein Negative Urine Glucose (UA) Normal Urine Ketones Negative Urine Occult Blood Negative Urine Nitrite Negative Urine Bilirubin Negative Urine Urobilinogen Normal Ur Leukocyte Esterase Negative Urine RBC 0 SEEN Urine WBC 0 SEEN Ur Squamous Epith Cells 0 SEEN Urine Bacteria 0 SEEN Urine Mucus 0 SEEN 07/13/22 23:40 WBC RBC Hgb Hct MCV MCH MCHC RDW Std Deviation RDW Coeff of Pedro Plt Count MPV Immature Gran % (Auto) Neut % (Auto) Lymph % (Auto) [place] % (Auto) Eos % (Auto) Baso % (Auto) Absolute Neuts (auto) Absolute Lymphs (auto) Nucleated RBC % Sodium Potassium 4.8 Chloride Carbon Dioxide Anion Gap BUN Creatinine Estim Creat Clear Calc Est GFR (MDRD) Af Amer Est GFR (MDRD) Non-Af BUN/Creatinine Ratio Glucose Calcium Total Bilirubin AST ALT Alkaline Phosphatase Troponin I High Sens Total Protein Albumin Globulin Albumin/Globulin Ratio Lipase Urine Color Urine Clarity Urine pH Ur Specific [place] Urine Protein Urine Glucose (UA) Urine Ketones Urine Occult Blood Urine Nitrite Urine Bilirubin Urine Urobilinogen Ur Leukocyte Esterase Urine RBC Urine WBC Ur Squamous Epith Cells Urine Bacteria Urine Mucus Radiography Diagnostic Testing: Clinical Impression(s) from Imaging Studies Abdomen/Pelvis CT 07/13/22 20:13 IMPRESSION: 1. No masses bowel obstruction abscess fluid free air. 2. 2 ventral abdominal wall hernias without bowel involvement. Findings are stable. 3. Hiatal hernia. 4. Postop change of prior cholecystectomy. No ductal dilatation. 5. Enhancing LEFT adrenal nodule/mass without change. Consider short-term follow-up to assess stability, consider evaluation approximately 3-4 months, or tentatively evaluation with triple phase CT or MRI recommended. 6. No evidence of obstructive uropathy. LEFT renal atrophy. 7. RIGHT renal cyst without change. Electronically Signed: Justyn Mandujano MD at 21:48 EST , Chest X-Ray 07/13/22 21:10 IMPRESSION: 1. LEFT lower lobe atelectasis versus infiltrate with pleural thickening and small LEFT pleural effusion. 2. RIGHT lung is clear. 3. No congestive failure. Electronically Signed: Justyn Mandujano MD at 21:36 EST , Rhythm Strip Rhythm Strip: Sinus Rhythm Rate: 85 Ectopy: None EKG Initial EKG: Attestation: I personally reviewed and interpreted this EKG as follows: Interpretation: Sinus Rhythm, No Acute Injury Pattern and AV Block (1st deg) Discharge Plan Dx/Rx/DC Orders Clinical Impression: Debility, Chronic kidney disease, stage 3a, Left adrenal mass, Hypercalcemia, P rerenal azotemia Disposition Disposition: Acute Care Hospital [facility]
[2022-07-13 20:24] LABS: Absolute Lymphocyte Count 3.16 X10^3/uL (0.83-4.51); Absolute Neutrophil Count 4.5 X10^3/uL (2.0-7.7); Basophil# 0.08 X10^3/uL; Basophil% 0.9 % (0-1); Eosinophil# 0.23 X10^3/uL; Eosinophils% 2.7 % (0-5); Hematocrit 39.8 % (37-47); Hemoglobin 13.1 g/dL (12.0-15.0); Lymphocyte # 3.16 X10^3/ul (0.83-4.51); Lymphocyte % 36.5 % (19-41); Mean Corp Hgb Conc 32.9 g/dL (32-36); Mean Corpuscular Hgb 29.6 pg (27.0-32.0); Mean Platelet Vol. 11.1 fl (6.2-12.0); Monocyte# 0.68 X10^3/uL; Monocyte% 7.9 % (0-10); NRBC Flagged by Analyzer 0 % (0-5); Neutrophil % 51.9 % (47-70); Platelet Count 271 K/mm3 (150-450); RBC Distribution Width CV 13.4 % (11.6-14.6); RBC Distribution Width SD 44.9 fl (35.1-43.9); Red Blood Count 4.42 M/mm3 (4.2-5.4); White Blood Count 8.7 K/mm3 (4.4-11.0)
[2022-07-13] MEDS: Metoclopramide 10 MG/2 ML Vial 5 MG IV (20:39)
[2022-07-13 20:53] VITALS: BP 162/63; PULSE 84; RESP 11; O2SAT 94
[2022-07-13 20:53] LABS: ALB/GLOB Ratio 0.8 RATIO (0.9-2.4); AST(SGOT) 19 U/L (15-37); Alanine Aminotransfer ALT/SGPT 25 U/L (13-56); Albumin, Serum 3.3 g/dL (3.2-5.0); Alkaline Phosphatase 69 U/L (45-117); Anion Gap 6 (5-15); BUN 30 mg/dL (7-18); BUN/Creat Ratio 23.4 RATIO (10-20); Calcium,Total 10.3 mg/dL (8.5-10.1); Chloride 105 mmol/L (98-107); Creatinine, Serum 1.28 mg/dL (0.55-1.02); EST Glomerular Filtration Rate 42 mL/min (>60); Est Glom Filt Rate - Afr Amer 51 mL/min (>60); Estimated Creatinine Clearance 24.25 ml/min; Globulin 4.1 g/dL (2.2-4.2); Glucose 101 mg/dL (74-106); Lipase 127 U/L (73-393); Potassium 4.4 mmol/L (3.5-5.1); Protein, Total 7.4 g/dL (6.4-8.2); Sodium Level 138 mmol/L (136-145); Troponin-I HS 15 pg/mL (3.0-54.0)
[2022-07-13 20:54] LABS: Bacteria 0 SEEN /hpf (None Seen); Mucous, Urine 0 SEEN /hpf (<or=2+); Red Blood Cells-Urine 0 SEEN /hpf (0-5); Squamous Epithelial Cells - UA 0 SEEN /hpf (5-10); White Blood Cells 0 SEEN /hpf (0-5)
[2022-07-13 20:56] LABS: Color, Urine Straw (Yellow); Glucose, Dipstick Normal (Normal); Ketone-Dipstick Negative (Negative); Leukocyte Esterase-Dipstick Negative /ul (Negative); Nitrite-Dipstick Negative (Negative); Occult Blood-Urine Negative /ul (Negative); Protein-Dipstick Negative (Negative); Specific Gravity, Urine 1.005 (1.002-1.030); Urine Bilirubin Dipstick Negative (Negative); Urine Clarity Clear (Clear); Urine Urobilinogen Normal (Normal)
--- NOTE | 2022-07-13 21:10 | RAD_ITS ---
INDICATION: weakness EXAMINATION/TECHNIQUE: X-RAY - XR Chest 1 View COMPARISON: 07/02/2022 FINDINGS: LIFE-SUPPORT AND LINES: 1. None HEART AND VESSELS: The cardiac silhouette, pulmonary vasculature have normal appearance. No evidence of congestive failure. Coarse aortic calcifications present. LUNGS AND PLEURAL SPACES: Atelectasis versus infiltrate LEFT lung base, LEFT pleural thickening and small LEFT effusion. RIGHT lung is clear. No pulmonary mass is noted. MEDIASTINUM AND HILAR REGIONS: No masses adenopathy noted. No areas of calcification. Visualized upper airway is normal in position. BONY ELEMENTS: No acute bony changes noted. RAD/Chest 1 View (Portable) IMPRESSION: 1. LEFT lower lobe atelectasis versus infiltrate with pleural thickening and small LEFT pleural effusion. 2. RIGHT lung is clear. 3. No congestive failure. Electronically Signed: Justyn Mandujano MD at 21:36 EST ,
[2022-07-13 22:00] VITALS: BP 167/64; PULSE 85; RESP 10; O2SAT 93
--- NOTE | 2022-07-13 23:24 | HP.PCM.HOS_ITS ---
HPI - General General Date of Admission: 07/13/22 Date of Service: 07/13/22 Chief Complaint: Fatigue, weakness, debility. HPI Narrative The patient is an 86 y/o F w/ PMHx: ABDI, Morbid obesity, Carotid disease, Hx R breast CA, Chronic Diastolic CHF, GERD, HTN, HLD, CKD stage IIIa, Diabetes mellitus type II who presents to the [facility] ED on 07/13/22 with history of significant generalized weakness and debility which has been progressively wors ening over the last several days recently admitted for congestive heart failure and acute kidney injury with notably elevated blood pressures at that time with several medication changes over the past several months with recent addition of Cardura outpatient and since medications start complaint of notable weakness as well as lightheaded and dizziness especially with positional changes. Family no romel outpatient since Cardura initiation blood pressures of been 150s to 180s. Patient does report occasional nausea and occasional dyspnea but this is chronic for her and unchanged. She denies any chest discomfort. Patient denies any abdominal pain. Work-up in the ED included T97.7, heart rate 89, BP 175/62 with most recent repeat 167/64, respiratory rate 18, 98% on room air however most recent repeat 93% on room air, CBC with WC 8.7, hemoglobin 13.1, platelet 271 without marked shift, CMP with BUN/creatinine 30/1.28, calcium 10.3, hepatic profile unremarkable, lipase 127, troponin 15, urinalysis unremarkable, chest x- ray with left lower lobe atelectasis versus infiltrate with pleural thickening and a small left pleural effusion with no obvious evidence of any overload or congestion, CT abdomen and pelvis with 2 ventral abdominal wall hernias without any bowel involvement with stable findings, evidence of a hiatal hernia, evidence of prior cholecystectomy with no ductal dilatation, enhancing left adrenal nodule/mass without change, left renal atrophy, no evidence of any obstructive uropathy, right renal cyst without any change from prior, rapid SARS COVID and influenza antigen negative. In the ED patient ministered Reglan 5 mg IV x1 as well as fentanyl 25 mcg IV x1. [facility] Medical History (Updated 07/14/22 @ 03:[address] Wendy Mishra MD) Arthritis Bilateral carotid artery stenosis Bilateral extracranial carotid artery stenosis Breast abscess Breast cancer, right breast (~03/2022) CHF (congestive heart failure) GERD (gastroesophageal reflux disease) History of IBS HLD (hyperlipidemia) HTN (hypertension) Hyperlipidemia Hypertension Left adrenal mass ABDI (obstructive sleep apnea) PONV (postoperative nausea and vomiting) Stage 3a chronic kidney disease (CKD) Type 2 diabetes mellitus Wears glasses Wears hearing aid Home Medications latanoprost 0.005 % eye drops (Xalatan) 1 drp EACH EYE QHS Cataracts/Dry eye 07/29/14 [History Last Taken 07/13/22] omega-3 fatty acids-fish oil 300 mg-1,000 mg capsule 1 ea PO DAILY SUPPLEMENT 07/29/14 [History Last Taken 07/13/22] aspirin 81 mg chewable tablet 81 mg PO DAILY HEART HEALTH 06/26/18 [History Last Taken 07/13/22] cholecalciferol (vitamin D3) 125 mcg (5,000 unit) capsule 125 mcg PO DAILY SUPPLEMENT 04/01/22 [History Last Taken 07/13/22] liver supplement 1 cap PO QHS SUPPLEMENT 04/01/22 [History Last Taken 07/12/22] Colloidal Silver 2 tsp PO DAILY SUPPLEMENT 06/11/22 [History Last Taken 07/13/22] cinnamon bark 500 mg capsule (Cinnamon) 500 mg PO DAILY SUPPLEMENT 06/11/22 [History Last Taken 07/01/22] acetaminophen 500 mg tablet 1,000 mg PO Q6H PRN Pain 07/02/22 [History Last Taken 06/28/22] amlodipine 10 mg tablet 10 mg PO DAILY blood pressure 07/02/22 [History Last Taken 07/13/22] ascorbic acid (vitamin C) 500 mg tablet 500 mg PO BID supplement 07/02/22 [History Last Taken 07/13/22] furosemide 40 mg tablet 40 mg PO DAILY FLUID 07/02/22 [History Last Taken 07/13/22] lisinopril 20 mg tablet 20 mg PO DAILY BLOOD PRESSURE 07/02/22 [History Last Taken 07/12/22] lorazepam 0.5 mg tablet 0.5 mg PO DAILY PRN Anxiety 07/02/22 [History Last Taken 07/11/22] polyethylene glycol 3350 17 gram oral powder packet 17 g PO QHS STOOL 07/02/22 [History Last Taken 07/01/22] melatonin 3 mg tablet 3 mg PO QHS PRN Sleep 07/13/22 [History Last Taken Unknown] nateglinide 60 mg tablet 60 mg PO TID dm 07/13/22 [History Last Taken 07/13/22] doxazosin 2 mg tablet (Cardura) 2 mg PO DAILY bp 07/14/22 [History Last Taken 1 09/13/21] potassium chloride 20 mEq tablet,extended release 20 meq PO DAILY supplement 07/14/22 [History Last Taken 07/13/22] Allergy/AdvReac Type Severity Reaction Status Date / Time morphine AdvReac Intermediate mental Verified 07/12/22 11:43 status change meperidine HCl [From Demerol] AdvReac Mild mental Verified 07/12/22 11:43 status change Family History Brother Pancreatic cancer Diabetes Heart disease Lung cancer Hypertension Colon cancer Mother Hypertension Brother No problems noted. 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 HEENT: + Lightheadedness. Eyes: No visual loss, blurred vision, double vision or yellow sclerae. Ears, Nose, Throat: No hearing loss, sneezing, congestion, runny nose or sore throat. SKIN: No rash or itching, lesions, wounds. CARDIOVASCULAR: + Lightheadedness, dizziness. No chest pain, chest pressure or chest discomfort, palpitations, edema, orthopnea. RESPIRATORY: No shortness of breath, cough or sputum, wheezing, hemoptysis. GASTROINTESTINAL: No anorexia, nausea, vomiting or diarrhea, abdominal pain, melena, BRBPR. GENITOURINARY: No dysuria, frequency, urgency or retention. NEUROLOGICAL: + Lightheadedness, dizziness. No headache, paralysis, ataxia, nu mbness or tingling in the extremities, focal weakness, change in bowel or bladder control, seizure. MUSCULOSKELETAL: + muscle, back pain, joint pain or stiffness. HEMATOLOGIC: No anemia, bleeding or bruising. LYMPHATICS: No enlarged nodes. No history of splenectomy. PSYCHIATRIC: No history of depression or anxiety. ENDOCRINOLOGIC: No reports of sweating, cold or heat intolerance. No polyuria or polydipsia. ALLERGIES: No history of asthma, hives, eczema or rhinitis. Vital Signs Vital Signs Vital Signs: 07/13/22 18:49 07/13/22 18:53 07/13/22 20:53 Temperature 97.7 F L Temperature Source Temporal Pulse Rate 89 84 Respiratory Rate 18 11 L Respiratory Effort Normal Respiratory Pattern Normal Blood Pressure 175/62 H 162/63 H Blood Pressure Mean 99 96 Pulse Ox 98 94 Oxygen Delivery Method Room Air Room Air 07/13/22 22:00 Temperature Temperature Source Pulse Rate 85 Respiratory Rate 10 L Respiratory Effort Respiratory Pattern Blood Pressure 167/64 H Blood Pressure Mean 98 Pulse Ox 93 Oxygen Delivery Method Room Air Weight Weight: 227 lb 1.218 oz Body Mass Index (BMI) 42.9 Physical Exam Narrative Physical Examination: General: Awake, alert, oriented x 3 and cooperative, seated upright in the ED bed, fatigued, mildly irritable otherwise no acute distress, main complaint is tailbone discomfort with ED bed. Skin: Normal color, normal turgor, no icterus, no cyanosis. HEENT: AT/NC, EOMI, PERRLA, mildly dry MM, no carotid bruits or JVD noted; however, thickened neck makes evaluation difficult. Lungs: Mildly diminished, greater bases, appropriate effort, no rales, ronchi or wheezing. Heart: Regular rate and rhythm; no gallop, rub audible. Abdomen: Soft, morbidly obese, NTTP, ND, distant normal BS, no obvious evidence of HSM however habitus makes evaluation difficult. Extremities: No cyanosis, no clubbing, mild bilateral ankle not markedly pitting edema. Neurological: Patient awake, alert, oriented as noted, cognitive function intact; pupils equally reactive to light and accommodation, cranial nerves II- XII grossly normal, moving all 4 extremities, no focal deficits, strength moderately to severely globally creased. Psychiatric: Affect appears fatigued, mildly irritable, no acute evidence of depressive or anxiety feelings but per discussion with patient family does have some underlying anxiety. Results Lab / Micro Data Result Diagrams: 07/13/22 19:06 07/13/22 23:40 Labs: Laboratory Results - last 24 hr 07/13/22 19:06: WBC 8.7, RBC 4.42, Hgb 13.1, Hct 39.8, MCV 90.0, MCH 29.6, MCHC 32.9, RDW Std Deviation 44.9 H, RDW Coeff of [place] 13.4, Plt Count 271, MPV 11.1, Immature Gran % (Auto) 0.100, Neut % (Auto) 51.9, Lymph % (Auto) 36.5, [place] % (Auto) 7.9, Eos % (Auto) 2.7, Baso % (Auto) 0.9, Absolute Neuts (auto) 4.5, Absolute Lymphs (auto) 3.16, Nucleated RBC % 0 07/13/22 19:06: Sodium 138, Potassium 4.4, Chloride 105, Carbon Dioxide 27.0, Anion Gap 6, BUN 30 H, Creatinine 1.28 H, Estim Creat Clear Calc 24.25, Est GFR (MDRD) Af Amer 51 L, Est GFR (MDRD) Non-Af 42 L, BUN/Creatinine Ratio 23.4 H, Glucose 101, Calcium 10.3 H, Total Bilirubin 0.80, AST 19, ALT 25, Alkaline Phosphatase 69, Troponin I High Sens 15, Total Protein 7.4, Albumin 3.3, Globulin 4.1, Albumin/Globulin Ratio 0.8 L, Lipase 127 07/13/22 20:49: Urine Color Straw, Urine Clarity Clear, Urine pH 7.0, Ur Specific [place] 1.005, Urine Protein Negative, Urine Glucose (UA) Normal, Urine Ketones Negative, Urine Occult Blood Negative, Urine Nitrite Negative, Urine Bilirubin Negative, Urine Urobilinogen Normal, Ur Leukocyte Esterase Negative, Urine RBC 0 SEEN, Urine WBC 0 SEEN, Ur Squamous Epith Cells 0 SEEN, Urine Bacteria 0 SEEN, Urine Mucus 0 SEEN Micro: Microbiology 07/13/22 20:45 Nasal Secretion SARS-CoV-2 & FLU Antigen (Rapid) - Final Radiology Impression Abdomen/Pelvis CT 07/13/22 20:13 IMPRESSION: 1. No masses bowel obstruction abscess fluid free air. 2. 2 ventral abdominal wall hernias without bowel involvement. Findings are stable. 3. Hiatal hernia. 4. Postop change of prior cholecystectomy. No ductal dilatation. 5. Enhancing LEFT adrenal nodule/mass without change. Consider short-term follow-up to assess stability, consider evaluation approximately 3-4 months, or tentatively evaluation with triple phase CT or MRI recommended. 6. No evidence of obstructive uropathy. LEFT renal atrophy. 7. RIGHT renal cyst without change. Electronically Signed: Justyn Mandujano MD at 21:48 EST , Chest X-Ray 07/13/22 21:10 IMPRESSION: 1. LEFT lower lobe atelectasis versus infiltrate with pleural thickening and small LEFT pleural effusion. 2. RIGHT lung is clear. 3. No congestive failure. Electronically Signed: Justyn Mandujano MD at 21:36 EST , Assessment & Plan Assessment/Plan (1) FTT (failure to thrive) in adult: PLAN: Plan The patient is an 86 y/o F w/ PMHx: ABDI, Morbid obesity, Carotid disease, Hx R breast CA, Chronic Diastolic CHF, GERD, HTN, HLD, CKD stage IIIa, Diabetes mellitus type II who presents to the [facility] ED on 07/13/22 with history of significant generalized weakness and debility which has been progressively worsening over the last several days recently admitted for congestive heart failure and acute kidney injury with notably elevated blood pressures at that time with several medication changes over the past several months with recent addition of Cardura outpatient and since medications start complaint of notable weakness. #1. Fatigue, debility, lightheadedness and dizziness, failure to thrive adult possibly related with recent new medication addition: We will admit to medical surgical floor, maintain on fall precautions, will temporarily hold Cardura given patient onset of complaints following, to be cautious will obtain full respiratory viral panel to assure no viral etiology, will judiciously hydrate if necessary given CHF history and recent admission for exacerbation, currently appears compensated, will obtain case management as well as physical/Occupationa l Therapy consultation for discharge planning. #2. Enhancing adrenal nodule/mass, left, noted previously: CT abdomen pelvis with an enhancing left adrenal nodule/mass without any change with recommended follow-up imaging in 3 to 4 months. We will encourage continued outpatient evaluation. #3. Chronic Diastolic CHF: 05/20/2022 echocardiogram with normal LV systolic function, EF 60%, normal size and thickness, moderate concentric LVH, stage II diastolic dysfunction. Appears compensated, chest x-ray with no overt findings, we will continue patient home aspirin, not on statin therapy per current list, lisinopril, Lasix, Norvasc. Given reported complaints following recent outpatient initiation of Cardura will hold. #4. Carotid disease: We will continue patient aspirin, not on statin therapy, hypertensive regimen with alterations as noted, diabetic regimen with alterations as noted. #5. 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 Ivan. Recommendation of 1-systemic adjuvant hormonal therapy with an aromatase inhibitor for 5 years; however, patient declined per discussion with patient/family. #6. Hypertension: Continue home regimen including lisinopril, Lasix, PRN hydralazine. Given patient extensive issues with various hypertensive medications will attempt initiation of clonidine which was used in the past however had caused her to have dry mouth but this is the least offensive of all her side effects from discussion. Patient was intolerant of beta-blockers with significant bradycardia and did not tolerate hydralazine well as it caused her significant fatigue and nausea for nearly half a day. #7. Hyperlipidemia: Not on statin therapy, defer to outpatient. #8. Chronic Kidney Disease Stage IIIa: Admission BUN/Cr 30/1.28, baseline renal function 1.2-1.4, repeat BMP in AM. #9. Morbid Obesity: Weight loss and lifestyle changes encouraged. #10. GERD: We will continue patient on famotidine. #11. ABDI: Patient has been diagnosed but has not been set up at home with a CPAP yet. Amenable to trying CPAP q HS here while admitted. #12. DVT prophylaxis: SCDs, heparin. #13. CODE status: Patient HCPOA are her son's x2 and living will is currently in place. Discussed CODE status at length including difference between FULL code, DNR-CCA and DNR-CC status. Following discussions about the differences in these status, requested DNR-CCA, no intubation status. Advanced Care Planning Face to Face Time: 16 minutes. Charges/Coding Visit Charges OBSV E&M: 83614 Initial observation care L3 Procedures Hospitalists Procedures: 11301 Advncd Care Plan 30 Min
[2022-07-14] VITALS (11 sets, daily range): BP systolic 111–186; BP diastolic 43–72; PULSE 53–84; RESP 10–18; TEMP 36.4–37.1; O2SAT 86–98; BMI 49.1
[2022-07-14 00:04] LABS: Potassium 4.8 mmol/L (3.5-5.1)
[2022-07-14] MEDS: cloNIDine HCl 0.1 MG Tablet PO ×3 (01:55→22:32)
[2022-07-14 06:09] LABS: Absolute Lymphocyte Count 3.08 X10^3/uL (0.83-4.51); Absolute Neutrophil Count 5.1 X10^3/uL (2.0-7.7); Basophil# 0.07 X10^3/uL; Basophil% 0.8 % (0-1); Eosinophil# 0.23 X10^3/uL; Eosinophils% 2.5 % (0-5); Hemoglobin 11.8 g/dL (12.0-15.0); Lymphocyte # 3.08 X10^3/ul (0.83-4.51); Lymphocyte % 33.3 % (19-41); Mean Corp Hgb Conc 31.9 g/dL (32-36); Mean Corpuscular Hgb 28.7 pg (27.0-32.0); Mean Platelet Vol. 10.3 fl (6.2-12.0); Monocyte# 0.77 X10^3/uL; Monocyte% 8.3 % (0-10); NRBC Flagged by Analyzer 0 % (0-5); Neutrophil # 5.07 X10^3/uL (2.7-7.7); Neutrophil % 54.9 % (47-70); Platelet Count 255 K/mm3 (150-450); RBC Distribution Width CV 13.4 % (11.6-14.6); RBC Distribution Width SD 44.5 fl (35.1-43.9); Red Blood Count 4.11 M/mm3 (4.2-5.4); White Blood Count 9.2 K/mm3 (4.4-11.0)
[2022-07-14 06:37] LABS: ALB/GLOB Ratio 0.8 RATIO (0.9-2.4); AST(SGOT) 13 U/L (15-37); Alanine Aminotransfer ALT/SGPT 20 U/L (13-56); Albumin, Serum 2.9 g/dL (3.2-5.0); Alkaline Phosphatase 61 U/L (45-117); Anion Gap 4 (5-15); BUN 25 mg/dL (7-18); BUN/Creat Ratio 22.5 RATIO (10-20); Calcium,Total 9.8 mg/dL (8.5-10.1); Chloride 106 mmol/L (98-107); Creatinine, Serum 1.11 mg/dL (0.55-1.02); EST Glomerular Filtration Rate 50 mL/min (>60); Est Glom Filt Rate - Afr Amer 60 mL/min (>60); Estimated Creatinine Clearance 27.96 ml/min; Globulin 3.5 g/dL (2.2-4.2); Glucose 123 mg/dL (74-106); Potassium 4.4 mmol/L (3.5-5.1); Protein, Total 6.4 g/dL (6.4-8.2); Sodium Level 137 mmol/L (136-145)
[2022-07-14] MEDS: amLODIPine 10 MG Tablet PO (08:41)
[2022-07-14] MEDS: Aspirin 81 MG TAB.CHEW PO (08:41)
[2022-07-14] MEDS: Lisinopril 20 MG Tablet PO (08:41)
[2022-07-14] MEDS: Furosemide 40 MG Tablet PO (08:41)
[2022-07-14] MEDS: Potassium Chloride Oral Tablet 20 MEQ PO (08:41)
[2022-07-14] MEDS: Glucerna Shake 120 ML LIQUID PO ×3 (08:53→15:47)
[2022-07-14] MEDS: Heparin Injection (Vial) 5,000 UNIT/ML VIAL 5000 UNIT SC ×2 (08:55→22:32)
--- NOTE | 2022-07-14 10:11 | PCM.PN.HOSP ---
Subjective Subjective Doing well, no issues overnight. She still feels weak. Infectious work-up so far is unremarkable Objective Data Objective Data Vital Signs: Vital Signs Temp Pulse Resp BP Pulse Ox O2 Del Method O2 Flow Rate 98.0 F 73 16 164/57 H 93 Room Air 2 07/14/22 08:44 07/14/22 08:44 07/14/22 08:44 07/14/22 08:44 07/14/22 08:44 07/14/22 08:44 07/14/22 08:31 Oxygen Flow Rate (L/min) 2 Oxygen Delivery Method Room Air Weight: 261 lb 11.019 oz Body Mass Index (BMI) 49.1 Intake & Output: Intake and Output for Last 24 Hours 07/13/22 07/14/22 07/15/22 03:59 03:59 03:59 Output Total 300 / 300 Balance -300 / -300 Lab / Micro Data Result Diagrams: 07/14/22 04:45 07/14/22 04:45 Labs: Laboratory Results - last 24 hr 07/13/22 19:06: WBC 8.7, RBC 4.42, Hgb 13.1, Hct 39.8, MCV 90.0, MCH 29.6, MCHC 32.9, RDW Std Deviation 44.9 H, RDW Coeff of [place] 13.4, Plt Count 271, MPV 11.1, Immature Gran % (Auto) 0.100, Neut % (Auto) 51.9, Lymph % (Auto) 36.5, [place] % (Auto) 7.9, Eos % (Auto) 2.7, Baso % (Auto) 0.9, Absolute Neuts (auto) 4.5, Absolute Lymphs (auto) 3.16, Nucleated RBC % 0 07/13/22 19:06: Sodium 138, Potassium 4.4, Chloride 105, Carbon Dioxide 27.0, Anion Gap 6, BUN 30 H, Creatinine 1.28 H, Estim Creat Clear Calc 24.25, Est GFR (MDRD) Af Amer 51 L, Est GFR (MDRD) Non-Af 42 L, BUN/Creatinine Ratio 23.4 H, Glucose 101, Calcium 10.3 H, Total Bilirubin 0.80, AST 19, ALT 25, Alkaline Phosphatase 69, Troponin I High Sens 15, Total Protein 7.4, Albumin 3.3, Globulin 4.1, Albumin/Globulin Ratio 0.8 L, Lipase 127 07/13/22 20:49: Urine Color Straw, Urine Clarity Clear, Urine pH 7.0, Ur Specific [place] 1.005, Urine Protein Negative, Urine Glucose (UA) Normal, Urine Ketones Negative, Urine Occult Blood Negative, Urine Nitrite Negative, Urine Bilirubin Negative, Urine Urobilinogen Normal, Ur Leukocyte Esterase Negative, Urine RBC 0 SEEN, Urine WBC 0 SEEN, Ur Squamous Epith Cells 0 SEEN, Urine Bacteria 0 SEEN, Urine Mucus 0 SEEN 07/13/22 23:40: Potassium 4.8 07/14/22 04:45: WBC 9.2, RBC 4.11 L, Hgb 11.8 L, Hct 37.0, MCV 90.0, MCH 28.7, MCHC 31.9 L, RDW Std Deviation 44.5 H, RDW Coeff of [place] 13.4, Plt Count 255, MPV 10.3, Immature Gran % (Auto) 0.200, Neut % (Auto) 54.9, Lymph % (Auto) 33.3, [place] % (Auto) 8.3, Eos % (Auto) 2.5, Baso % (Auto) 0.8, Absolute Neuts (auto) 5.1, Absolute Lymphs (auto) 3.08, Nucleated RBC % 0 07/14/22 04:45: Sodium 137, Potassium 4.4, Chloride 106, Carbon Dioxide 27.0, Anion Gap 4 L, BUN 25 H, Creatinine 1.11 H, Estim Creat Clear Calc 27.96, Est GFR (MDRD) Af Amer 60, Est GFR (MDRD) Non-Af 50 L, BUN/Creatinine Ratio 22.5 H, Glucose 123 H, Calcium 9.8, Total Bilirubin 0.90, AST 13 L, ALT 20, Alkaline Phosphatase 61, Total Protein 6.4, Albumin 2.9 L, Globulin 3.5, Albumin/Globulin Ratio 0.8 L Micro: Microbiology 07/13/22 20:45 Nasal Secretion SARS-CoV-2 & FLU Antigen (Rapid) - Final Radiography Diagnostic Testing: Radiology Impression Abdomen/Pelvis CT 07/13/22 20:13 IMPRESSION: 1. No masses bowel obstruction abscess fluid free air. 2. 2 ventral abdominal wall hernias without bowel involvement. Findings are stable. 3. Hiatal hernia. 4. Postop change of prior cholecystectomy. No ductal dilatation. 5. Enhancing LEFT adrenal nodule/mass without change. Consider short-term follow-up to assess stability, consider evaluation approximately 3-4 months, or tentatively evaluation with triple phase CT or MRI recommended. 6. No evidence of obstructive uropathy. LEFT renal atrophy. 7. RIGHT renal cyst without change. Electronically Signed: Justyn Mandujano MD at 21:48 EST , Chest X-Ray 07/13/22 21:10 IMPRESSION: 1. LEFT lower lobe atelectasis versus infiltrate with pleural thickening and small LEFT pleural effusion. 2. RIGHT lung is clear. 3. No congestive failure. Electronically Signed: Justyn Mandujano MD at 21:36 EST , Rhythm Strip Rhythm Strip: Sinus Rhythm Rate: 85 Ectopy: None Physical Exam Narrative General: Alert, Oriented x3, Cooperative, No apparent distress HEENT: Atraumatic, PERRLA, EOMI, Normocephalic Oral: Moist Mucosa Neck: Supple, No JVD Lungs: Diminished, Normal air movement, No rhonchi, No wheeze, No rales Cardiovascular: Regular rate, Regular Rhythm, Normal S1, Normal S2, No murmurs Abdomen: Soft, Non Tender, Non-Distended, No Hepato-splenomegaly Extremities: No edema, Capillary Refill Less than 3 Seconds Skin: No rashes, No breakdown Musculoskeletal: No Tenderness to Palpation of Joints or Extremities Neurological: Cranial nerves II-XII grossly intact, Motor Exam 5/5 strength throughout, Sensory exam intact to light touch and pain Psych/Mental Status: Flat affect, Appropriate Assessment & Plan Assessment/Plan (1) FTT (failure to thrive) in adult: PLAN: Plan 1. Fatigue, debility and failure to thrive ? We will continue with PT/OT for possible placement ? No UTI or pneumonia she does not have a leukocytosis and remains afebrile 2. HTN/HLD/chronic diastolic CHF/carotid disease ? Blood pressures are stable, can resume her home medications ? She did have an echo in 05/20/2022 with a normal EF of 60% with moderate concentric left ventricular hypertrophy and stage II diastolic dysfunction ? She was recently started on Cardura so may be that this is the cause of her fatigue given and other symptoms so we will hold 3. Enhancing adrenal nodule/CKD 3 a/history of right breast cancer ? Renal functions at baseline ? CT scan of her abdomen and pelvis shows a left adrenal nodule may benefit from a repeat CT scan in 3 to 4 months ? For her breast cancer was recommended to have an aromatase inhibitor however she declined 4. GERD ? Stable ? Continue with Pepcid 5. ABDI/morbid obesity ? Discussed lifestyle modifications ? She does not wear CPAP at home yet but we can try that while she is here overnight DVT: Heparin Charges/Coding Visit Charges OBSV E&M: 83911 Subsequent observation care L2
[2022-07-14 13:00] LABS: Bedside Glucose 132 mg/dL (74-106)
[2022-07-14] MEDS: Mag Hydrox/Al Hydrox/Simeth 30 ML UDC PO (18:23)
[2022-07-14] MEDS: Ondansetron 4 MG/2 ML Vial IV (18:23)
[2022-07-14] MEDS: 0.9% Saline Lock 10 ML Syringe IV (18:23)
[2022-07-14 18:35] LABS: Bedside Glucose 105 mg/dL (74-106)
[2022-07-14] MEDS: Latanoprost 0.005% 1 Bottle 1 DRP EACH EYE (22:32)
[2022-07-14] MEDS: Famotidine 20 MG Tablet PO (22:32)
[2022-07-14 23:51] LABS: Bedside Glucose 128 mg/dL (74-106)
[2022-07-15] VITALS (11 sets, daily range): BP systolic 105–137; BP diastolic 40–48; PULSE 42–56; RESP 14–18; TEMP 36.4–36.6; O2SAT 91–97
[2022-07-15] MEDS: 0.9% Saline Lock 10 ML Syringe IV ×2 (04:16→08:54)
[2022-07-15] MEDS: cloNIDine HCl 0.1 MG Tablet PO (06:09)
[2022-07-15 06:46] LABS: Bedside Glucose 123 mg/dL (74-106)
[2022-07-15] MEDS: Ondansetron 4 MG/2 ML Vial IV (08:53)
[2022-07-15] MEDS: Aspirin 81 MG TAB.CHEW PO (08:59)
[2022-07-15] MEDS: Famotidine 20 MG Tablet PO (08:59)
[2022-07-15] MEDS: Heparin Injection (Vial) 5,000 UNIT/ML VIAL 5000 UNIT SC ×2 (08:59→22:21)
[2022-07-15] MEDS: Potassium Chloride Oral Tablet 20 MEQ PO (08:59)
[2022-07-15] MEDS: Glucerna Shake 120 ML LIQUID PO (08:59)
[2022-07-15 13:00] LABS: Bedside Glucose 124 mg/dL (74-106)
--- NOTE | 2022-07-15 13:52 | PCM.PN.HOSP ---
Subjective Subjective On the evening of the with fatigue, weakness, and debility. Patient states she was feeling well yesterday however this morning she was very fatigued and lightheaded. Blood pressures are lower than they have been running. She typically has issues controlling her hypertension and states she recently visited the [facility] office and they started her on Cardura. She felt unwell on that medication so this was transitioned to clonidine here and the patient had subsequently developed some bradycardia and worsening hypotension. This medication was ordered 0.1 mg p.o. 3 times daily scheduled. She reports being much weaker today than yesterday and feeling poorly this morning. We did discuss her likely sleep apnea diagnosis as she requires oxygen here most notably at night and with naps. She states she has outpatient follow-up to get this arranged this however most likely will not be able to attend the appointment because she is in the hospital at this time. Objective Data Objective Data Vital Signs: Vital Signs Temp Pulse Resp BP Pulse Ox O2 Del Method O2 Flow Rate 97.6 F L 44 L 18 105/45 L 97 Nasal Cannula 2 07/15/22 08:31 07/15/22 08:31 07/15/22 08:31 07/15/22 08:31 07/15/22 11:16 07/15/22 08:31 07/15/22 11:16 Oxygen Flow Rate (L/min) 2 Oxygen Delivery Method Nasal Cannula Weight: 117.5 kg Body Mass Index (BMI) 49.1 Intake & Output: Intake and Output for Last 24 Hours 07/13/22 07/14/22 07/15/22 23:59 23:59 23:59 Intake Total 480 / 480 Output Total 850 / 850 100 / 100 Balance -370 / -370 -100 / -100 Lab / Micro Data Result Diagrams: 07/14/22 04:45 07/14/22 04:45 Labs: Laboratory Results - last 24 hr 07/14/22 17:45: POC Glucose 105 07/14/22 22:38: POC Glucose 128 H 07/15/22 06:14: POC Glucose 123 H 07/15/22 12:35: POC Glucose 124 H Micro: Microbiology 07/13/22 20:45 Nasal Secretion SARS-CoV-2 & FLU Antigen (Rapid) - Final Rhythm Strip Rhythm Strip: Sinus Rhythm Rate: 85 Ectopy: None Physical Exam Const alert, oriented x3, no apparent distress and well nourished Constitutional Narrative: Elderly white female sitting up in a chair at the bedside, interacts appropriately but complains of significant fatigue, appears nontoxic HEENT head/scalp atraumatic and moist oral mucous membranes Head and Scalp: normocephalic Resp normal respiratory effort, no retractions, no use of accessory muscles and clear to auscultation bilaterally Resp Narrative: Diffusely diminished but clear, oxygen saturations were 95 to 94% on room air at the time of my evaluation however after I left she fell asleep and oxygen saturations dipped into the low mid 80s on room air with resolution to above 88% when placed on 2 L nasal cannula Auscultation: Negative for crackles, rhonchi or wheezes Cardio regular rhythm, S1 normal heart sound, S2 normal heart sound, no murmurs, no rub, no gallops, no clicks and no JVD Cardio Narrative: Bradycardia GI normal to inspection, nondistended, normoactive bowel sounds, soft to palpation and non-tender Extremity no clubbing, cyanosis or edema Extremity Narrative: 2+ pedal pulses Neuro oriented x3, moves all extremities and no focal motor deficits Speech: speech normal Psych affect normal Psych Narrative: Appropriate interaction, very pleasant Assessment & Plan Assessment/Plan (1) FTT (failure to thrive) in adult: (2) Left adrenal mass: (3) Labile blood pressure: (4) Nocturnal hypoxia: PLAN: Plan Fatigue/debility/weakness -Suspect this overall might be related to blood pressure fluctuations -Thus far infectious etiology is unremarkable -Continue to monitor blood pressures -We will discontinue clonidine and substitute increased dose of lisinopril at 30 mg -Highly recommend outpatient polysomnography -PT/OT following CKD stage IIIb -Serum creatinine is stable -Baseline 1.1-1.3 -Serum creatinine 1.1 today -Repeat BMP in a.m. -Continue to monitor -Avoid nephrotoxins -Continue outpatient follow-up for nephrology Sam type I second-degree heart block -Appears to have progressed from a first-degree heart block on previous EKGs -No current work-up needed at this time -Continue to monitor as an outpatient Hypertension -Very labile -Continue home amlodipine -Continue home lisinopril with increased dose from 20 to 30 mg -Continue home Lasix 40 mg daily -Discontinue clonidine as patient has developed bradycardia on this -Continue to monitor blood pressures as they tend to be quite labile -TSH is within normal limits -It was suspected sleep apnea and I am wondering if this is contributing to her labile but blood pressures -She did have an echo in 05/20/2022 with a normal EF of 60% with moderate concentric left ventricular hypertrophy and stage II diastolic dysfunction Enhancing adrenal nodule ? Renal functions at baseline ? CT scan of her abdomen and pelvis shows a left adrenal nodule may benefit from a repeat CT scan in 3 to 4 months Invasive ductal carcinoma -ER/WA positive ? For her breast cancer was recommended to have an aromatase inhibitor however she declined DM-2 -Hold home oral agents -Add sliding scale insulin -Acute checks as ordered -Carb controlled cardiac diet History of glaucoma -Continue home eyedrop drops Bilateral carotid artery stenosis -Follow as an outpatient -No urgent issues -Continue home medication regimen GERD -Continue famotidine Obstructive sleep apnea -Patient noncompliant at home at baseline -Patient has desaturations when sleeping -Monitor sats--> and use 2 L with naps and nighttime -Patient needs outpatient polysomnography testing as this may be contributing to her labile blood pressures Generalized weakness/debility -PT/OT following -We will likely need at least home health discharge and possible placement depending on progress -Case management consulted DVT prophylaxis -SCDs Charges/Coding Visit Charges Inpatient E&M: 87773 Subs Hosp L2
[2022-07-15 17:51] LABS: Bedside Glucose 126 mg/dL (74-106)
[2022-07-15] MEDS: Latanoprost 0.005% 1 Bottle 1 DRP EACH EYE (22:21)
[2022-07-15] MEDS: Polyethylene Glycol 3350 17 GM PACKET PO (22:21)
[2022-07-15 23:11] LABS: Bedside Glucose 107 mg/dL (74-106)
[2022-07-16] VITALS (15 sets, daily range): BP systolic 138–159; BP diastolic 46–55; PULSE 49–74; RESP 14–18; TEMP 36.3–36.6; O2SAT 86–95
[2022-07-16] MEDS: 0.9% Saline Lock 10 ML Syringe IV ×3 (02:24→18:26)
[2022-07-16 06:52] LABS: Absolute Lymphocyte Count 3.01 X10^3/uL (0.83-4.51); Absolute Neutrophil Count 4.7 X10^3/uL (2.0-7.7); Basophil# 0.07 X10^3/uL; Basophil% 0.8 % (0-1); Eosinophil# 0.32 X10^3/uL; Eosinophils% 3.6 % (0-5); Hematocrit 36.5 % (37-47); Lymphocyte # 3.01 X10^3/ul (0.83-4.51); Lymphocyte % 33.7 % (19-41); Mean Corp Hgb Conc 32.9 g/dL (32-36); Mean Corpuscular Hgb 29.5 pg (27.0-32.0); Mean Corpuscular Volume 89.7 fL (81-99); Mean Platelet Vol. 10.4 fl (6.2-12.0); Monocyte# 0.78 X10^3/uL; Monocyte% 8.7 % (0-10); NRBC Flagged by Analyzer 0 % (0-5); Neutrophil # 4.74 X10^3/uL (2.7-7.7); Platelet Count 250 K/mm3 (150-450); RBC Distribution Width CV 13.2 % (11.6-14.6); RBC Distribution Width SD 43.8 fl (35.1-43.9); Red Blood Count 4.07 M/mm3 (4.2-5.4); White Blood Count 8.9 K/mm3 (4.4-11.0)
[2022-07-16 07:09] LABS: Anion Gap 4 (5-15); BUN 46 mg/dL (7-18); BUN/Creat Ratio 26.6 RATIO (10-20); Calcium,Total 9.9 mg/dL (8.5-10.1); Chloride 102 mmol/L (98-107); Creatinine, Serum 1.73 mg/dL (0.55-1.02); EST Glomerular Filtration Rate 30 mL/min (>60); Est Glom Filt Rate - Afr Amer 36 mL/min (>60); Estimated Creatinine Clearance 17.94 ml/min; Glucose 103 mg/dL (74-106); Magnesium 2.6 mg/dL (1.6-2.6); Phosphorus 3.2 mg/dL (2.5-4.9); Potassium 4.7 mmol/L (3.5-5.1); Sodium Level 133 mmol/L (136-145)
--- NOTE | 2022-07-16 07:14 | EKG12_ITS ---
Test Reason : Blood Pressure : / mmHG Vent. Rate : 057 BPM Atrial Rate : 057 BPM P-R Int : 238 ms QRS Dur : 098 ms QT Int : 412 ms P-R-T Axes : 072 021 060 degrees QTc Int : 401 ms Sinus bradycardia with 1st degree A-V block Otherwise normal ECG Confirmed by MARTINEZ LAINEZ, FREEMAN ([id number]), department editor MANASA EGAN ([id number]) on 07/18/2022 8:18:21 AM Referred By: ERIN Confirmed By:FREEMAN HENRIQUEZ MD
[2022-07-16] MEDS: 0.9% Normal Saline 1,000 ML 75 ML IV ×2 (07:54→21:42)
[2022-07-16] MEDS: Aspirin 81 MG TAB.CHEW PO (07:55)
[2022-07-16] MEDS: Potassium Chloride Oral Tablet 20 MEQ PO (07:55)
[2022-07-16] MEDS: Glucerna Shake 120 ML LIQUID PO ×2 (07:55→17:54)
[2022-07-16 08:10] LABS: Bedside Glucose 96 mg/dL (74-106)
[2022-07-16] MEDS: amLODIPine 10 MG Tablet PO (11:09)
[2022-07-16] MEDS: Lisinopril 20 MG Tablet 30 MG PO (11:10)
[2022-07-16] MEDS: Heparin Injection (Vial) 5,000 UNIT/ML VIAL 5000 UNIT SC ×2 (11:10→21:39)
[2022-07-16] MEDS: Famotidine 20 MG Tablet PO (11:10)
[2022-07-16] MEDS: Insulin Lispro 100 UNIT/ML INSULN.PEN SC (11:13)
[2022-07-16 11:30] LABS: Bedside Glucose 157 mg/dL (74-106)
--- NOTE | 2022-07-16 14:42 | PCM.PN.HOSP ---
Subjective Subjective Patient states she does feel better today however did have significant fatigue with ambulating. No issues overnight. Daughter is at the bedside and concerned about some acid reflux that she experienced on Friday for which she required Zofran. She reports that she had an episode of this previously in May while she was at [facility]. It sounds as if she is done some reading as she has questions about Valencia's esophagus. I discussed with her daughter she is having no acute symptoms at this time which the patient was present and refused any epigastric pain or reflux symptoms at this time. She had been on famotidine in the past and the patient would not want to restart famotidine pain as she stated it made her feel worse. I discussed with them the importance of outpatient follow-up and if it is a problem in the future to discuss it with Dr. Lal to potentially get a referral to gastroenterology for an EGD. The patient did have a abdominal and pelvis CAT scan on presentation and it noted a hiatal hernia but no other significant abnormalities in that region. Objective Data Objective Data Vital Signs: Vital Signs Temp Pulse Resp BP Pulse Ox O2 Del Method O2 Flow Rate 97.4 F L 63 18 152/50 H 95 Nasal Cannula 3 07/16/22 13:50 07/16/22 13:50 07/16/22 13:50 07/16/22 13:50 07/16/22 13:50 07/16/22 13:50 07/16/22 13:50 Oxygen Flow Rate (L/min) 3 Oxygen Delivery Method Nasal Cannula Weight: 120.3 kg Body Mass Index (BMI) 49.1 Intake & Output: Intake and Output for Last 24 Hours 07/14/22 07/15/22 07/16/22 23:59 23:59 23:59 Intake Total 480 / 480 810 / 810 Output Total 850 / 850 100 / 100 800 / 800 Balance -370 / -370 710 / 710 -800 / -800 Lab / Micro Data Result Diagrams: 07/16/22 05:49 07/16/22 05:49 Labs: Laboratory Results - last 24 hr 07/15/22 17:27: POC Glucose 126 H 07/15/22 22:26: POC Glucose 107 H 07/16/22 05:49: WBC 8.9, RBC 4.07 L, Hgb 12.0, Hct 36.5 L, MCV 89.7, MCH 29.5, MCHC 32.9, RDW Std Deviation 43.8, RDW Coeff of Pedro 13.2, Plt Count 250, MPV 10.4, Immature Gran % (Auto) 0.200, Neut % (Auto) 53.0, Lymph % (Auto) 33.7, [place] % (Auto) 8.7, Eos % (Auto) 3.6, Baso % (Auto) 0.8, Absolute Neuts (auto) 4.7, Absolute Lymphs (auto) 3.01, Nucleated RBC % 0 07/16/22 05:49: Sodium 133 L, Potassium 4.7, Chloride 102, Carbon Dioxide 27.0, Anion Gap 4 L, BUN 46 H, Creatinine 1.73 H, Estim Creat Clear Calc 17.94, Est GFR (MDRD) Af Amer 36 L, Est GFR (MDRD) Non-Af 30 L, BUN/Creatinine Ratio 26.6 H, Glucose 103, Calcium 9.9, Phosphorus 3.2, Magnesium 2.6 07/16/22 06:38: POC Glucose 96 07/16/22 11:08: POC Glucose 157 H Micro: Microbiology 07/13/22 20:45 Nasal Secretion SARS-CoV-2 & FLU Antigen (Rapid) - Final Rhythm Strip Rhythm Strip: Sinus Rhythm Rate: 85 Ectopy: None Physical Exam Const alert, oriented x3, no apparent distress and well nourished Constitutional Narrative: Elderly white female sitting up in a chair at the bedside, interacts appropriately appears less fatigued today, nontoxic, daughter at bedside HEENT head/scalp atraumatic and moist oral mucous membranes Resp normal respiratory effort, no retractions, no use of accessory muscles and clear to auscultation bilaterally Resp Narrative: Diffusely diminished but clear Auscultation: Negative for crackles, rhonchi or wheezes Cardio regular rate, regular rhythm, S1 normal heart sound, S2 normal heart sound, no murmurs, no rub, no gallops, no clicks and no JVD GI normal to inspection, nondistended, normoactive bowel sounds, soft to palpation and non-tender GI Narrative: No epigastric newness on exam Extremity no clubbing, cyanosis or edema Extremity Narrative: 2+ pedal pulses Neuro oriented x3, moves all extremities and no focal motor deficits Speech: speech normal Psych affect normal Psych Narrative: Appropriate interaction, very pleasant Assessment & Plan Assessment/Plan (1) FTT (failure to thrive) in adult: (2) Left adrenal mass: (3) Labile blood pressure: (4) Nocturnal hypoxia: (5) MALATHI (acute kidney injury): PLAN: Plan Fatigue/debility/weakness -Suspect this overall might be related to blood pressure fluctuations as well as untreated sleep apnea -Better today with more stable blood pressures -Strongly encouraged patient to follow-up for sleep titration as she did have a sleep study in October that showed ABDI -Thus far infectious etiology is unremarkable -Continue to monitor blood pressures -PT/OT following and patient is not currently needing placement but may need home health MALATHI on CKD stage IIIb -Serum creatinine up from 1.1-1.73 in the last 48 hours -Suspect this is related from her blood pressure drop yesterday -Hold Lasix -Gentle IV hydration -We will go ahead and continue lisinopril for now -Baseline 1.1-1.3 -Repeat BMP in a.m. -Continue to monitor -Avoid nephrotoxins -Continue outpatient follow-up for nephrology--> will consult if creatinine does not improve with hydration Sam type I second-degree heart block -Appears to have progressed from a first-degree heart block on previous EKGs -EKG this morning is consistent with first-degree heart block and bradycardia has improved -Continue to monitor as an outpatient Hypertension -Very labile -Continue home amlodipine -Continue lisinopril 30 mg -Hold home Lasix 40 mg daily -Avoid clonidine -Continue to monitor blood pressures as they tend to be quite labile -TSH is within normal limits -It was suspected sleep apnea and I am wondering if this is contributing to her labile but blood pressures -She did have an echo in 05/20/2022 with a normal EF of 60% with moderate concentric left ventricular hypertrophy and stage II diastolic dysfunction Enhancing adrenal nodule ? Renal functions at baseline ? CT scan of her abdomen and pelvis shows a left adrenal nodule may benefit from a repeat CT scan in 3 to 4 months Invasive ductal carcinoma -ER/SC positive ? For her breast cancer was recommended to have an aromatase inhibitor however she declined DM-2 -Hold home oral agents -Add sliding scale insulin -Acute checks as ordered -Carb controlled cardiac diet History of glaucoma -Continue home eyedrop drops Bilateral carotid artery stenosis -Follow as an outpatient -No urgent issues -Continue home medication regimen GERD/hiatal hernia -Patient felt worse on famotidine--> will discontinue and monitor clinically -As needed Mylanta -Patient does have hiatal hernia which needs no acute follow-up -Recommend if this is a continued problem after discharge that the patient contact her primary care physician requesting GI follow-up and possible EGD Obstructive sleep apnea -Patient awaiting titration -Wrongly recommended follow-up to both her and her daughter today as this may help her fatigue as well as her labile blood pressures -Patient has desaturations when sleeping -Monitor sats--> and use 2 L with naps and nighttime Generalized weakness/debility -PT/OT following -Not appear that she will require placement at discharge and can likely be discharged home with home health when she is medically stable -Case management consulted DVT prophylaxis -SCDs CODE STATUS -DNR CCA with no intubation Charges/Coding Visit Charges Inpatient E&M: 51337 Subs Hosp L2
[2022-07-16 16:56] LABS: Bedside Glucose 140 mg/dL (74-106)
--- NOTE | 2022-07-16 17:30 | CASEMGMT ---
SHAWN RAINEY readmission note: Prior admission: Admitted 07/03/22 w/hypoxia. Discharged home w/[facility] services 07/07/22. Pt did not qualify for home O2 @ d/c. Current admission: Admitted 07/13/22 w/FTT adult. SHAWN RAINEY to room to talk w/pt. Pt sitting up in chair in room. Alert/oriented. Pt states she has been taking her medications as prescribed since last admission and saw Dr Lal last Fri. She has an upcoming sleep study scheduled this week on morning. She states she would like to return home w/[facility] for SN and is agreeable to having PT/OT added. Order placed and call to [facility] to inform her. Pt denies having other discharge planning needs or concerns at this time. Estephanie ATWOOD RN, CM
[2022-07-16] MEDS: Ondansetron 4 MG/2 ML Vial IV (18:26)
[2022-07-16] MEDS: Latanoprost 0.005% 1 Bottle 1 DRP EACH EYE (21:40)
[2022-07-16 22:00] LABS: Bedside Glucose 134 mg/dL (74-106)
[2022-07-17] VITALS (9 sets, daily range): BP systolic 147–182; BP diastolic 51–55; PULSE 57–86; RESP 16–18; TEMP 36.4–36.6; O2SAT 90–95
[2022-07-17 05:54] LABS: Absolute Neutrophil Count 5.4 X10^3/uL (2.0-7.7); Basophil# 0.05 X10^3/uL; Basophil% 0.5 % (0-1); Eosinophil# 0.33 X10^3/uL; Eosinophils% 3.5 % (0-5); Hematocrit 35.3 % (37-47); Hemoglobin 11.6 g/dL (12.0-15.0); Lymphocyte % 28.6 % (19-41); Mean Corp Hgb Conc 32.9 g/dL (32-36); Mean Corpuscular Hgb 29.8 pg (27.0-32.0); Mean Corpuscular Volume 90.7 fL (81-99); Mean Platelet Vol. 10.1 fl (6.2-12.0); Monocyte# 0.89 X10^3/uL; Monocyte% 9.4 % (0-10); NRBC Flagged by Analyzer 0 % (0-5); Neutrophil # 5.44 X10^3/uL (2.7-7.7); Neutrophil % 57.7 % (47-70); Platelet Count 218 K/mm3 (150-450); RBC Distribution Width CV 13.3 % (11.6-14.6); Red Blood Count 3.89 M/mm3 (4.2-5.4); White Blood Count 9.4 K/mm3 (4.4-11.0)
[2022-07-17 06:20] LABS: Bedside Glucose 106 mg/dL (74-106)
[2022-07-17 06:24] LABS: Anion Gap 4 (5-15); BUN 36 mg/dL (7-18); BUN/Creat Ratio 29.3 RATIO (10-20); Calcium,Total 9.5 mg/dL (8.5-10.1); Chloride 108 mmol/L (98-107); Creatinine, Serum 1.23 mg/dL (0.55-1.02); EST Glomerular Filtration Rate 44 mL/min (>60); Est Glom Filt Rate - Afr Amer 53 mL/min (>60); Estimated Creatinine Clearance 25.23 ml/min; Glucose 105 mg/dL (74-106); Potassium 4.6 mmol/L (3.5-5.1); Sodium Level 137 mmol/L (136-145)
[2022-07-17] MEDS: Glucerna Shake 120 ML LIQUID PO ×2 (07:47→11:05)
[2022-07-17] MEDS: Pantoprazole Sodium 40 MG Tablet PO (07:47)
[2022-07-17] MEDS: Heparin Injection (Vial) 5,000 UNIT/ML VIAL 5000 UNIT SC (09:49)
[2022-07-17] MEDS: Potassium Chloride Oral Tablet 20 MEQ PO (09:49)
[2022-07-17] MEDS: Aspirin 81 MG TAB.CHEW PO (09:49)
[2022-07-17] MEDS: Lisinopril 20 MG Tablet 30 MG PO (09:50)
[2022-07-17] MEDS: amLODIPine 10 MG Tablet PO (09:53)
[2022-07-17 11:20] LABS: Bedside Glucose 126 mg/dL (74-106)
--- NOTE | 2022-07-17 12:50 | PCM.DC.SUM ---
Providers Date of Admission: 07/16/22 Primary Care Physician: Dr. Martina Lal, DO Reason For Visit: FTT ADULT Diagnosis Discharge Diagnosis (1) FTT (failure to thrive) in adult: Status: Acute Code(s): R62.7 - Adult failure to thrive (2) Left adrenal mass: Status: Acute Code(s): E27.8 - Other specified disorders of adrenal gland (3) Labile blood pressure: Status: Acute Code(s): R09.89 - Other specified symptoms and signs involving the circulatory and respiratory systems (4) Nocturnal hypoxia: Status: Acute Code(s): G47.34 - Idiopathic sleep related nonobstructive alveolar hypoventilation (5) MALATHI (acute kidney injury): Status: Acute Code(s): N17.9 - Acute kidney failure, unspecified Plan Fatigue/debility/weakness -Suspect this overall might be related to blood pressure fluctuations as well as untreated sleep apnea -Better today with more stable blood pressures -Strongly encouraged patient to follow-up for sleep titration as she did have a sleep study in October that showed ABDI -Thus far infectious etiology is unremarkable -Continue to monitor blood pressures -PT/OT following and patient is not currently needing placement but may need home health MALATHI on CKD stage IIIb -Serum creatinine up from 1.1-1.73 in the last 48 hours -Suspect this is related from her blood pressure drop yesterday -Hold Lasix -Gentle IV hydration -We will go ahead and continue lisinopril for now -Baseline 1.1-1.3 -Repeat BMP in a.m. -Continue to monitor -Avoid nephrotoxins -Continue outpatient follow-up for nephrology--> will consult if creatinine does not improve with hydration Santositz type I second-degree heart block -Appears to have progressed from a first-degree heart block on previous EKGs -EKG this morning is consistent with first-degree heart block and bradycardia has improved -Continue to monitor as an outpatient Hypertension -Very labile -Continue home amlodipine -Continue lisinopril 30 mg -Hold home Lasix 40 mg daily -Avoid clonidine -Continue to monitor blood pressures as they tend to be quite labile -TSH is within normal limits -It was suspected sleep apnea and I am wondering if this is contributing to her labile but blood pressures -She did have an echo in 05/20/2022 with a normal EF of 60% with moderate concentric left ventricular hypertrophy and stage II diastolic dysfunction Enhancing adrenal nodule ? Renal functions at baseline ? CT scan of her abdomen and pelvis shows a left adrenal nodule may benefit from a repeat CT scan in 3 to 4 months Invasive ductal carcinoma -ER/NV positive ? For her breast cancer was recommended to have an aromatase inhibitor however she declined DM-2 -Hold home oral agents -Add sliding scale insulin -Acute checks as ordered -Carb controlled cardiac diet History of glaucoma -Continue home eyedrop drops Bilateral carotid artery stenosis -Follow as an outpatient -No urgent issues -Continue home medication regimen GERD/hiatal hernia -Patient felt worse on famotidine--> will discontinue and monitor clinically -As needed Mylanta -Patient does have hiatal hernia which needs no acute follow-up -Recommend if this is a continued problem after discharge that the patient contact her primary care physician requesting GI follow-up and possible EGD Obstructive sleep apnea -Patient awaiting titration -Wrongly recommended follow-up to both her and her daughter today as this may help her fatigue as well as her labile blood pressures -Patient has desaturations when sleeping -Monitor sats--> and use 2 L with naps and nighttime Generalized weakness/debility -PT/OT following -Not appear that she will require placement at discharge and can likely be discharged home with home health when she is medically stable -Case management consulted DVT prophylaxis -SCDs CODE STATUS -DNR CCA with no intubation Medications at Discharge Home Medications latanoprost 0.005 % eye drops (Xalatan) 1 drp EACH EYE QHS Cataracts/Dry eye 07/29/14 omega-3 fatty acids-fish oil 300 mg-1,000 mg capsule 1 ea PO DAILY SUPPLEMENT 07/29/14 aspirin 81 mg chewable tablet 81 mg PO DAILY HEART HEALTH 06/26/18 cholecalciferol (vitamin D3) 125 mcg (5,000 unit) capsule 125 mcg PO DAILY SUPPLEMENT 04/01/22 liver supplement 1 cap PO QHS SUPPLEMENT 04/01/22 Colloidal Silver 2 tsp PO DAILY SUPPLEMENT 06/11/22 cinnamon bark 500 mg capsule (Cinnamon) 500 mg PO DAILY SUPPLEMENT 06/11/22 acetaminophen 500 mg tablet 1,000 mg PO Q6H PRN Pain 07/02/22 amlodipine 10 mg tablet 10 mg PO DAILY blood pressure 07/02/22 ascorbic acid (vitamin C) 500 mg tablet 500 mg PO BID supplement 07/02/22 furosemide 40 mg tablet 40 mg PO DAILY FLUID 07/02/22 lorazepam 0.5 mg tablet 0.5 mg PO DAILY PRN Anxiety 07/02/22 polyethylene glycol 3350 17 gram oral powder packet 17 g PO QHS STOOL 07/02/22 melatonin 3 mg tablet 3 mg PO QHS PRN Sleep 07/13/22 nateglinide 60 mg tablet 60 mg PO TID dm 07/13/22 famotidine 20 mg tablet (Pepcid) 20 mg PO DAILY 07/14/22 potassium chloride 20 mEq tablet,extended release 20 meq PO DAILY supplement 07/14/22 clonidine HCl 0.1 mg tablet 0.1 mg PO DAILY PRN SBP>160 x 2 readings 30 min apart #30 tabs 07/17/22 lisinopril 20 mg tablet 30 mg PO DAILY #45 tabs 07/17/22 pantoprazole 40 mg tablet,delayed release 40 mg PO DAILY #30 tabs 07/17/22 Hospital Course Operations None Procedures EKG Summary of Care Provided Minutes Spent on Discharge: 39 Hospital Course: Mrs. Hanson is an 86-year-old white female who presented to the emergency department [facility] on 07/13/2022 with fatigue, weakness, and debility. 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 Patient reported that since starting this medication she had noticed increased weakness and lightheadedness as well as dizziness especially with positional changes. Family reported outpatient blood pressures have been anywhere from 1 50-1 80s while she was on the Cardura. The patient did report some occasional nausea and dyspnea but this is chronic for her and unchanged. Work-up in the ED included T97.7, heart rate 89, BP 175/62 with most recent repeat 167/64, respiratory rate 18, 98% on room air however most recent repeat 93% on room air, CBC with WC 8.7, hemoglobin 13.1, platelet 271 without marked shift, CMP with BUN/creatinine 30/1.28, calcium 10.3, hepatic profile unremarkable, lipase 127, troponin 15, urinalysis unremarkable, chest x-ray with left lower lobe atelectasis versus infiltrate with pleural thickening and a small left pleural effusion with no obvious evidence of any overload or congestion, CT abdomen and pelvis with 2 ventral abdominal wall hernias without any bowel involvement with stable findings, evidence of a hiatal hernia, evidence of prior cholecystectomy with no ductal dilatation, enhancing left adrenal nodule/mass without change, left renal atrophy, no evidence of any obstructive uropathy, right renal cyst without any change from prior, rapid SARS COVID and influenza antigen negative.? She was admitted to the medical floor where we titrated her blood pressures. Her Cardura was discontinued and clonidine was added. Unfortunately 3 times daily clonidine resulted in hypotension and worsening kidney function. We stopped her clonidine at that time. Her serum creatinine increased to 1.73 on 07/16/2022. Her Lasix was held and she was given some IV fluids. On 07/17/2022 her renal function improved to baseline at 1.23. We did increase her lisinopril from 20 to 30 mg at that time we discontinued her clonidine and her blood pressures were better with this addition. With this change, her systolic blood pressures were anywhere from 135-160 with diastolics in the 40s to 60s. She was also started on some Protonix as she felt her previous utilization of famotidine was ineffective and made her feel worse. This seemed to improve her reflux and Tums. We did instruct her discharged also stay upright for 30 to 60 minutes after eating. If those symptoms do not improve she is going to discuss this with her primary care physician and obtain referral to Dr. Langston for possible EGD. She does have noted hiatal hernia which does increase her risk for reflux. Family question what to do as she typically has good blood pressures while she here and when she goes home her blood pressures are elevated. We started as needed clonidine 0.1 mg not to be used more than twice daily and only to be used if she has 2 consecutive blood pressures with systolics greater than 160 taken 30 minutes apart. She was discharged home with a new prescription for the clonidine, Protonix, and increase lisinopril dose. She was seen by physical and occupational therapy during her hospitalization and the recommendation was home with home health. This was arranged by case management prior to discharge. She has a sleep study titration appointment that is to be tomorrow and we strongly encouraged her to follow-up with this as it may help with her nocturnal hypoxia as well as her obstructive sleep apnea which she has been diagnosed with in October and may help with her blood pressure and fatigue overall. This was reiterated to the patient and her daughter more numerous times during her hospital stay. She was discharged home in stable condition on 07/17/2022. Discharge diagnoses: Fatigue Debility Weakness MALATHI-resolved CKD stage IIIb Mobitz type II second-degree heart block-stable Hypertension Enhancing adrenal nodule-primary care aware and follow-up Invasive ductal carcinoma DM-2 History of glaucoma Bilateral carotid artery stenosis GERD/hiatal hernia ABDI Physical Exam Const alert, oriented x3, no apparent distress and well nourished Constitutional Narrative: Elderly white female sitting up in a chair at the bedside, appears far less fatigued today than the last 2 days, nontoxic, daughter at bedside, appropriate interaction and good understanding General Appearance: cooperative, comfortable, well kempt and well developed Orientation / Consciousness: awake, oriented to person, oriented to place and oriented to time Exam Limitations: no limitations Nutritional Appearance: morbidly obese HEENT normocephalic, head/scalp atraumatic and moist oral mucous membranes; Negative for hearing grossly normal bilaterally HEENT Narrative: Mild hearing loss, Mallampati 3, no thrush Eyes PERRL and EOMs intact bilaterally Eyes Narrative: No scleral icterus Neck no lymphadenopathy and supple Neck Narrative: Trachea midline, neck is short and thick, no thyroid enlargement Resp normal respiratory effort, no retractions, no use of accessory muscles and clear to auscultation bilaterally Resp Narrative: Diffusely diminished but clear Auscultation: Negative for crackles, rhonchi or wheezes Cardio regular rate, regular rhythm, S1 normal heart sound, S2 normal heart sound, no murmurs, no rub, no gallops, no clicks and no JVD GI normal to inspection, nondistended, normoactive bowel sounds, soft to palpation and non-tender GI Narrative: No epigastric newness on exam Extremity no clubbing, cyanosis or edema Extremity Narrative: 2+ pedal pulses Skin no rashes or lesions noted, no wounds and no jaundice Neuro oriented x3, CN's II-XII intact bilaterally, moves all extremities and no focal motor deficits Speech: speech normal Psych affect normal Psych Narrative: Appropriate interaction, very pleasant Weight / BMI Weight Weight: 120 kg Body Mass Index (BMI) 49.1 ABG / Lab / Microbiology Data Result Diagrams: 07/17/22 05:35 07/17/22 05:35 Laboratory: Laboratory Results - last 24 hr 07/16/22 16:30: POC Glucose 140 H 07/16/22 21:38: POC Glucose 134 H 07/17/22 05:35: WBC 9.4, RBC 3.89 L, Hgb 11.6 L, Hct 35.3 L, MCV 90.7, MCH 29.8, MCHC 32.9, RDW Std Deviation 45.0 H, RDW Coeff of Pedro 13.3, Plt Count 218, MPV 10.1, Immature Gran % (Auto) 0.300, Neut % (Auto) 57.7, Lymph % (Auto) 28.6, Hayes % (Auto) 9.4, Eos % (Auto) 3.5, Baso % (Auto) 0.5, Absolute Neuts (auto) 5.4, Absolute Lymphs (auto) 2.70, Nucleated RBC % 0 07/17/22 05:35: Sodium 137, Potassium 4.6, Chloride 108 H, Carbon Dioxide 25.0, Anion Gap 4 L, BUN 36 H, Creatinine 1.23 H, Estim Creat Clear Calc 25.23, Est GFR (MDRD) Af Amer 53 L, Est GFR (MDRD) Non-Af 44 L, BUN/Creatinine Ratio 29.3 H, Glucose 105, Calcium 9.5 07/17/22 06:00: POC Glucose 106 07/17/22 11:02: POC Glucose 126 H Microbiology: Microbiology 07/13/22 20:45 Nasal Secretion SARS-CoV-2 & FLU Antigen (Rapid) - Final D/C Instructions Discharge Diet: Low fat / Low cholesterol (Please stay upright sitting for at least 30 minutes to an hour after eating) and 2000 mg Sodium Diet Discharge Activity: Return to Normal Activity Meaningful Use Info Meaningful Use Diagnoses (Choose all that apply): None applicable Discharge Plan Admission Admit Date/Time: 07/16/22 10:10 Primary Reason for Your Visit: Fatigue/weakness/debility Attending Provider: Loan Luu Primary Care Provider: Martina Lal Consulting Providers: Wendy Mishra ; Ryder De Los Santos Instructions Additional Instructions / Restrictions: 1. Do not check blood pressure at home more than 3 times daily 2. Only use clonidine if systolic blood pressure is greater than 160 for 2 consecutive readings that are 30 minutes of heart and do not use more than twice daily 3. Restart Lasix and potassium supplementation tomorrow 07/18/2022 4. Please utilize increased dose of lisinopril 5. Call nephrology office for follow-up appointment in the next 1 to 2 weeks time. 6. Start Protonix at home and if reflux symptoms continue discussed with primary care physician about referral to gastroenterology for possible EGD Discharge Orders/Prescriptions Prescriptions: New lisinopril 20 mg Tablet 30 mg PO DAILY Qty: 45 1RF pantoprazole 40 mg Tablet,Delayed Release (Dr/Ec) 40 mg PO DAILY Qty: 30 1RF clonidine HCl 0.1 mg tablet 0.1 mg PO DAILY PRN (Reason: SBP>160 x 2 readings 30 min apart) Qty: 30 0RF Rx Instructions: do not use more than twice daily Continued cholecalciferol (vitamin D3) 125 mcg (5,000 unit) capsule 125 mcg PO DAILY liver supplement 1 cap PO QHS cinnamon bark [Cinnamon] 500 mg capsule 500 mg PO DAILY Colloidal Silver 2 tsp PO DAILY Label Comments: supplement latanoprost [Xalatan] 1 DROP bottle 1 drp EACH EYE QHS omega-3 fatty acids-fish oil 1 EACH capsule 1 ea PO DAILY Label Comments: supplement aspirin 81 mg tablet,chewable 81 mg PO DAILY Label Comments: PT'S LAST DOSE OF ASPIRIN WILL BE 04/26/2022 lorazepam 0.5 mg tablet 0.5 mg PO DAILY PRN (Reason: Anxiety) Label Comments: Take one tablet by mouth daily. polyethylene glycol 3350 17 gram Powder In Packet 17 g PO QHS acetaminophen 500 mg tablet 1,000 mg PO Q6H PRN (Reason: Pain) ascorbic acid (vitamin C) 500 mg tablet 500 mg PO BID amlodipine 10 mg tablet 10 mg PO DAILY melatonin 3 mg Tablet 3 mg PO QHS PRN (Reason: Sleep) nateglinide 60 mg tablet 60 mg PO TID famotidine [Pepcid] 20 mg Tablet 20 mg PO DAILY Held furosemide 40 mg tablet 40 mg PO DAILY Hold Instructions: Restart on 07/18/2022 Label Comments: TAKE 1 TABLET BY MOUTH DAILY potassium chloride 20 mEq tablet extended release 20 meq PO DAILY Hold Instructions: Restart on 07/18/2022 Discontinued lisinopril 20 mg tablet 20 mg PO DAILY Label Comments: TAKE 1 TABLET BY MOUTH DAILY doxazosin [Cardura] 2 mg tablet 2 mg PO DAILY Referrals / Follow Up: Dena Kwok MD [Med Staff - Consulting] - Within 2 Weeks (call today or tomorrow for appt) Martina Lal DO [Primary Care Provider] - Within 1 Month Disposition Disposition (needs filled in before D/C Order can be placed): Home Health Service Charges/Coding Visit Charges Inpatient E&M: 89968 Disch Hosp
--- NOTE | 2022-07-17 13:11 | CASEMGMT ---
Pt did not qualify for home oxygen.
--- NOTE | 2022-07-17 15:33 | CHAPLAIN ---
Type of Pastoral Visit _x__ Initial Visit ___ Follow-up Visit ___ On-call Visit ___ General Patient Visit ___ Spiritual Assessment ___ Family Conference ___ Bereavement ___ Rapid Response ___ Code Blue ___ Other (describe below) Pastoral Care Referral From _x__ Patient ___ Family ___ Nurse ___ Physician ___ Choir Member ___ Adjunct Instructor Chemistry ___ Other (describe below) Sacrament/Intervention _x__ Active listening ___ Anointing ___ Voodoo ___ Bereavement ___ Communion ___ Elenita exploration ___ ___ Life review _x__ Prayer ___ Reconciliation ___ Sacrament of Sick _x__ Supportive presence ___ Wedding ___ Other (describe below) Pastoral Comments 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
== END 2022-07-17 16:10 | disposition home health service (06) | DRG 948 ==
LOC: ED 23:31 → MS3 07-14 00:37
PROVIDERS: Family Medicine; Admitting Provider Family Medicine; Emergency Provider Emergency Medicine; PCP Internal Medicine; Visit Provider Internal Medicine
DX: R53.81 Other malaise (principal); I13.0 Hypertensive heart and chronic kidney disease with heart failure and stage 1 through stage 4 chronic kidney disease, or unspecified chronic kidney disease; N17.9 Acute kidney failure, unspecified; I50.32 Chronic diastolic (congestive) heart failure; Z68.42 Body mass index [BMI] 45.0-49.9, adult; E27.8 Other specified disorders of adrenal gland; G47.34 Idiopathic sleep related nonobstructive alveolar hypoventilation; I95.9 Hypotension, unspecified; C50.919 Malignant neoplasm of unspecified site of unspecified female breast; E11.22 Type 2 diabetes mellitus with diabetic chronic kidney disease; E66.01 Morbid (severe) obesity due to excess calories; N18.32 Chronic kidney disease, stage 3b; E83.52 Hypercalcemia; K21.9 Gastro-esophageal reflux disease without esophagitis; E78.5 Hyperlipidemia, unspecified; K44.9 Diaphragmatic hernia without obstruction or gangrene; G47.33 Obstructive sleep apnea (adult) (pediatric); I44.1 Atrioventricular block, second degree; R62.7 Adult failure to thrive; H40.9 Unspecified glaucoma; Z17.0 Estrogen receptor positive status [ER+]; Z60.2 Problems related to living alone; Z66 Do not resuscitate; Z79.82 Long term (current) use of aspirin; Z79.899 Other long term (current) drug therapy; Z20.822 Contact with and (suspected) exposure to COVID-19
CPT/HCPCS: 36415; 71045; 74176; 80048; 80053; 81001; 82962; 83690; 83735; 84100; 84132; 84484; 85025; 87428; 93005; 94762; 97110; 97116; 97162; 97166; 97530; 97535; 99251; 99252; 99285; J7030; P9612; A4216; G0463; J2405

== ENCOUNTER 2022-07-23 15:03 | Outpatient (RCR) | payer MEDICARE, SELFPAY ==
[2022-07-23 15:51] LABS: Hematocrit 38.3 % (37-47); Hemoglobin 12.5 g/dL (12.0-15.0); Mean Corp Hgb Conc 32.6 g/dL (32-36); Mean Corpuscular Hgb 29.2 pg (27.0-32.0); Mean Corpuscular Volume 89.5 fL (81-99); Mean Platelet Vol. 11.1 fl (6.2-12.0); Platelet Count 282 K/mm3 (150-450); RBC Distribution Width CV 13.5 % (11.6-14.6); RBC Distribution Width SD 44.3 fl (35.1-43.9); Red Blood Count 4.28 M/mm3 (4.2-5.4); White Blood Count 11.2 K/mm3 (4.4-11.0)
[2022-07-23 16:02] LABS: Anion Gap 7 (5-15); BUN 33 mg/dL (7-18); BUN/Creat Ratio 21.3 RATIO (10-20); Calcium,Total 10.8 mg/dL (8.5-10.1); Chloride 104 mmol/L (98-107); Creatinine, Serum 1.55 mg/dL (0.55-1.02); EST Glomerular Filtration Rate 34 mL/min (>60); Est Glom Filt Rate - Afr Amer 41 mL/min (>60); Glucose 124 mg/dL (74-106); Potassium 4.3 mmol/L (3.5-5.1); Sodium Level 136 mmol/L (136-145)
== END 2022-08-20 23:59 ==
LOC: HHLAB 15:03
PROVIDERS: PCP Internal Medicine; Visit Provider Internal Medicine
DX: I13.0 Hypertensive heart and chronic kidney disease with heart failure and stage 1 through stage 4 chronic kidney disease, or unspecified chronic kidney disease (principal); N18.9 Chronic kidney disease, unspecified; I50.31 Acute diastolic (congestive) heart failure
CPT/HCPCS: 80048; 85027

== ENCOUNTER → 2022-08-01 | Outpatient (CLI) | payer MEDICARE, SELFPAY | END | disposition home or self-care (01) | LOC: PSN 10:59 | PROVIDERS: PCP Internal Medicine; Referring Provider Nurse Practitioner Gerontology; Visit Provider Nurse Practitioner Gerontology | DX: R00.1 Bradycardia, unspecified (principal) | CPT/HCPCS: 93225; 93226 ==

== ENCOUNTER → 2022-08-08 | Outpatient (CLI) | payer MEDICARE, SELFPAY ==
[2022-08-08 17:22] LABS: Hematocrit 40.9 % (37-47); Hemoglobin 13.5 g/dL (12.0-15.0); Mean Corpuscular Hgb 29.3 pg (27.0-32.0); Mean Corpuscular Volume 88.9 fL (81-99); Mean Platelet Vol. 10.9 fl (6.2-12.0); Platelet Count 251 K/mm3 (150-450); RBC Distribution Width CV 13.2 % (11.6-14.6); RBC Distribution Width SD 43.4 fl (35.1-43.9); White Blood Count 10.5 K/mm3 (4.4-11.0)
[2022-08-08 18:42] LABS: Vitamin D,25 Hydroxy 81.2 ng/mL
[2022-08-08 18:48] LABS: ALB/GLOB Ratio 0.9 RATIO (0.9-2.4); AST(SGOT) 20 U/L (15-37); Alanine Aminotransfer ALT/SGPT 30 U/L (13-56); Albumin, Serum 3.6 g/dL (3.2-5.0); Alkaline Phosphatase 67 U/L (45-117); Anion Gap 9 (5-15); BUN 37 mg/dL (7-18); BUN/Creat Ratio 21.9 RATIO (10-20); Calcium,Total 10.3 mg/dL (8.5-10.1); Chloride 105 mmol/L (98-107); Creatinine, Serum 1.69 mg/dL (0.55-1.02); EST Glomerular Filtration Rate 31 mL/min (>60); Est Glom Filt Rate - Afr Amer 37 mL/min (>60); Glucose 104 mg/dL (74-106); Phosphorus 2.4 mg/dL (2.5-4.9); Potassium 4.3 mmol/L (3.5-5.1); Protein, Total 7.6 g/dL (6.4-8.2); Sodium Level 139 mmol/L (136-145)
[2022-08-08 18:58] LABS: Protein, Urine (Random) < 6.0 mg/dL (<11.9)
[2022-08-09 07:55] LABS: PTHIN 79.7 pg/mL (18.4-80.1)
== END | disposition home or self-care (01) ==
LOC: LAB 16:28
PROVIDERS: PCP Internal Medicine; Visit Provider Nurse Practitioner Adult Health
DX: N18.32 Chronic kidney disease, stage 3b (principal)
CPT/HCPCS: 36415; 80053; 82306; 82570; 83970; 84100; 84156; 85027

== ENCOUNTER → 2022-09-12 | Outpatient (CLI) | payer MEDICARE, SELFPAY ==
[2022-09-12 12:59] LABS: Anion Gap 8 (5-15); BUN 53 mg/dL (7-18); BUN/Creat Ratio 31.5 RATIO (10-20); Calcium,Total 10.5 mg/dL (8.5-10.1); Chloride 105 mmol/L (98-107); Creatinine, Serum 1.68 mg/dL (0.55-1.02); EST Glomerular Filtration Rate 31 mL/min (>60); Est Glom Filt Rate - Afr Amer 37 mL/min (>60); Glucose 77 mg/dL (74-106); Potassium 4.6 mmol/L (3.5-5.1); Sodium Level 135 mmol/L (136-145)
[2022-09-13 19:51] LABS: DHEA Sulfate 90.4 ug/dL (13.9-142.8)
== END | disposition home or self-care (01) ==
PROVIDERS: Internal Medicine Endocrinology, Diabetes & Metabolism; PCP Internal Medicine; Referring Provider Internal Medicine Nephrology; Visit Provider Internal Medicine Nephrology
DX: N18.32 Chronic kidney disease, stage 3b (principal); N17.9 Acute kidney failure, unspecified; E27.8 Other specified disorders of adrenal gland
CPT/HCPCS: 36415; 80048; 82627; 82626

== ENCOUNTER 2022-10-10 09:50 | Outpatient (RCR) | payer MEDICARE, SELFPAY ==
[2022-10-10 13:05] LABS: Anion Gap 9 (5-15); BUN 60 mg/dL (7-18); BUN/Creat Ratio 36.4 RATIO (10-20); Calcium,Total 10.4 mg/dL (8.5-10.1); Chloride 105 mmol/L (98-107); Creatinine, Serum 1.65 mg/dL (0.55-1.02); EST Glomerular Filtration Rate 31 mL/min (>60); Est Glom Filt Rate - Afr Amer 38 mL/min (>60); Glucose 64 mg/dL (74-106); Potassium 4.3 mmol/L (3.5-5.1); Sodium Level 139 mmol/L (136-145)
== END 2022-10-18 21:00 | disposition home or self-care (01) ==
LOC: MTLAB 09:50
PROVIDERS: PCP Internal Medicine; Referring Provider Internal Medicine Nephrology; Visit Provider Internal Medicine Nephrology
DX: N18.32 Chronic kidney disease, stage 3b (principal)
CPT/HCPCS: 36415; 80048

== ENCOUNTER 2022-11-11 10:47 | Outpatient (RCR) | payer MEDICARE, SELFPAY ==
[2022-11-11 12:47] LABS: Anion Gap 4 (5-15); BUN 52 mg/dL (7-18); BUN/Creat Ratio 36.1 RATIO (10-20); Calcium,Total 10.3 mg/dL (8.5-10.1); Chloride 112 mmol/L (98-107); Creatinine, Serum 1.44 mg/dL (0.55-1.02); EST Glomerular Filtration Rate 37 mL/min (>60); Est Glom Filt Rate - Afr Amer 44 mL/min (>60); Glucose 95 mg/dL (74-106); Potassium 4.5 mmol/L (3.5-5.1); Sodium Level 139 mmol/L (136-145)
== END 2022-11-17 05:26 | disposition home or self-care (01) ==
LOC: MTLAB 10:47
PROVIDERS: PCP Internal Medicine; Referring Provider Internal Medicine Nephrology; Visit Provider Internal Medicine Nephrology
DX: N18.32 Chronic kidney disease, stage 3b (principal)
CPT/HCPCS: 36415; 80048

== ENCOUNTER 2023-01-10 11:11 | Outpatient (RCR) | payer MEDICARE, SELFPAY ==
[2023-01-10 12:46] LABS: Anion Gap 5 (5-15); BUN 47 mg/dL (7-18); BUN/Creat Ratio 35.9 RATIO (10-20); Calcium,Total 10.2 mg/dL (8.5-10.1); Chloride 110 mmol/L (98-107); Creatinine, Serum 1.31 mg/dL (0.55-1.02); EST Glomerular Filtration Rate 41 mL/min (>60); Est Glom Filt Rate - Afr Amer 50 mL/min (>60); Glucose 74 mg/dL (74-106); Potassium 4.8 mmol/L (3.5-5.1); Sodium Level 137 mmol/L (136-145)
== END 2023-01-10 18:00 | disposition home or self-care (01) ==
LOC: MTLAB 11:11
PROVIDERS: PCP Internal Medicine; Referring Provider Internal Medicine Nephrology; Visit Provider Internal Medicine Nephrology
DX: N18.32 Chronic kidney disease, stage 3b (principal)
CPT/HCPCS: 36415; 80048

== ENCOUNTER 2023-02-10 10:22 | Outpatient (RCR) | payer MEDICARE, SELFPAY ==
[2023-02-10 12:52] LABS: Anion Gap 4 (5-15); BUN 35 mg/dL (7-18); BUN/Creat Ratio 27.3 RATIO (10-20); Calcium,Total 9.5 mg/dL (8.5-10.1); Chloride 111 mmol/L (98-107); Creatinine, Serum 1.28 mg/dL (0.55-1.02); EST Glomerular Filtration Rate 42 mL/min (>60); Est Glom Filt Rate - Afr Amer 51 mL/min (>60); Glucose 94 mg/dL (74-106); Potassium 4.5 mmol/L (3.5-5.1); Sodium Level 140 mmol/L (136-145)
== END 2023-02-17 18:00 | disposition home or self-care (01) ==
LOC: MTLAB 10:22
PROVIDERS: PCP Internal Medicine; Referring Provider Internal Medicine Nephrology; Visit Provider Internal Medicine Nephrology
DX: N18.32 Chronic kidney disease, stage 3b (principal)
CPT/HCPCS: 36415; 80048

== ENCOUNTER → 2023-03-11 | Outpatient (CLI) | payer MEDICARE, SELFPAY ==
--- NOTE | 2023-03-11 12:27 | CDU_ITS ---
Reason For Study: carotid stenosis Rt. Velocities/BP Lt. Velocities/BP Prox CCA 91.6/9.1 cm/sec. Prox CCA 72.8/9.0 cm/sec. Mid CCA 90.5/12.4 cm/sec. Mid CCA 87.6/11.4 cm/sec. Dist CCA 99.2/12.4 cm/sec. Dist CCA 55.3/11.3 cm/sec. Prox ICA 85.1/13.9 cm/sec. Prox ICA 253.1/55.9 cm/sec. Mid ICA 113.3/16.3 cm/sec. Mid ICA 243.4/52.7 cm/sec. Dist ICA 121.9/20.0 cm/sec. Dist ICA 154.0/18.8 cm/sec. Rt. ICA/CCA = 1.3. Lt. ICA/CCA = 2.9. Prox ECA 437.8/20.0 cm/sec. Prox ECA 295.4/12.9 cm/sec. Rt. Vert. 70.4/12.6 cm/sec. Lt. Vert. 59.7/8.0 cm/sec. Right Extracranial There is homogeneous, smooth atherosclerotic plaque noted in the right common carotid artery. There is heterogeneous, irregular atherosclerotic plaque noted in the right internal carotid artery. There is heterogeneous, irregular atherosclerotic plaque noted in the right external carotid artery. Antegrade flow is noted in the right vertebral artery. Left Extracranial There is heterogeneous, irregular atherosclerotic plaque noted in the left common carotid artery. There is heterogeneous, irregular atherosclerotic plaque noted in the left internal carotid artery. There is heterogeneous, irregular atherosclerotic plaque noted in the left external carotid artery. Antegrade flow is noted in the left vertebral artery. Procedure Carotid Duplex [id number]. This is a Carotid Duplex examination using B-mode, color flow and specral Doppler. The exam was diagnostic. Exam performed in department. Prelim called to the . VL/Carotid Duplex Ultrasound Interpretation Summary Mild (<50%) stenosis right extracranial internal carotid. Severe (>70%) stenosis left extracranial internal carotid. Patent and antegrade vertebrals bilaterally. Ordering Physician: Angely Carrizales Performed By: Logan Pro RVT
[2023-03-11 15:12] LABS: Absolute Lymphocyte Count 2.42 X10^3/uL (0.83-4.51); Absolute Neutrophil Count 5.3 X10^3/uL (2.0-7.7); Basophil# 0.06 X10^3/uL; Basophil% 0.7 % (0-1); Eosinophil# 0.22 X10^3/uL; Eosinophils% 2.5 % (0-5); Hemoglobin 12.4 g/dL (12.0-15.0); Lymphocyte # 2.42 X10^3/ul (0.83-4.51); Lymphocyte % 27.7 % (19-41); Mean Corp Hgb Conc 32.6 g/dL (32-36); Mean Corpuscular Hgb 29.6 pg (27.0-32.0); Mean Corpuscular Volume 90.7 fL (81-99); Mean Platelet Vol. 10.2 fl (6.2-12.0); Monocyte# 0.74 X10^3/uL; Monocyte% 8.5 % (0-10); NRBC Flagged by Analyzer 0 % (0-5); Neutrophil # 5.27 X10^3/uL (2.7-7.7); Neutrophil % 60.3 % (47-70); Platelet Count 272 K/mm3 (150-450); RBC Distribution Width CV 13.2 % (11.6-14.6); RBC Distribution Width SD 43.9 fl (35.1-43.9); Red Blood Count 4.19 M/mm3 (4.2-5.4); White Blood Count 8.7 K/mm3 (4.4-11.0)
[2023-03-11 15:55] LABS: ALB/GLOB Ratio 0.9 RATIO (0.9-2.4); AST(SGOT) 18 U/L (15-37); Alanine Aminotransfer ALT/SGPT 21 U/L (13-56); Albumin, Serum 3.5 g/dL (3.2-5.0); Alkaline Phosphatase 81 U/L (45-117); Anion Gap 7 (5-15); BUN 37 mg/dL (7-18); BUN/Creat Ratio 28.5 RATIO (10-20); Calcium,Total 10.2 mg/dL (8.5-10.1); Chloride 110 mmol/L (98-107); EST Glomerular Filtration Rate 41 mL/min (>60); Est Glom Filt Rate - Afr Amer 50 mL/min (>60); Globulin 3.9 g/dL (2.2-4.2); Glucose 79 mg/dL (74-106); Potassium 4.5 mmol/L (3.5-5.1); Protein, Total 7.4 g/dL (6.4-8.2); Sodium Level 141 mmol/L (136-145)
== END | disposition home or self-care (01) ==
PROVIDERS: Internal Medicine Hematology & Oncology; PCP Internal Medicine; Referring Provider Internal Medicine Cardiovascular Disease; Visit Provider Internal Medicine Cardiovascular Disease
DX: I65.23 Occlusion and stenosis of bilateral carotid arteries (principal); I11.0 Hypertensive heart disease with heart failure; I50.30 Unspecified diastolic (congestive) heart failure; C50.911 Malignant neoplasm of unspecified site of right female breast
CPT/HCPCS: 36415; 80053; 85025; 93880

== ENCOUNTER → 2023-05-07 | Outpatient (CLI) | payer MEDICARE, SELFPAY ==
[2023-05-07 13:19] LABS: CREATININE FINGERSTICK 0.9 mg/dL (0.55-1.02); EGFR FINGERSTICK > 60.0000 mL/min (>60)
== END | disposition home or self-care (01) ==
PROVIDERS: PCP Internal Medicine; Referring Provider Physician Assistant; Visit Provider Physician Assistant
DX: Z00.00 Encounter for general adult medical examination without abnormal findings (principal)

== ENCOUNTER → 2023-07-10 | Outpatient (CLI) | payer MEDICARE, SELFPAY ==
[2023-07-10 15:36] LABS: Hematocrit 39.2 % (37-47); Hemoglobin 12.7 g/dL (12.0-15.0); Mean Corp Hgb Conc 32.4 g/dL (32-36); Mean Corpuscular Hgb 29.5 pg (27.0-32.0); Mean Corpuscular Volume 91.2 fL (81-99); Mean Platelet Vol. 10.5 fl (6.2-12.0); Platelet Count 263 K/mm3 (150-450); RBC Distribution Width CV 13.7 % (11.6-14.6); RBC Distribution Width SD 45.8 fl (35.1-43.9); White Blood Count 8.2 K/mm3 (4.4-11.0)
[2023-07-10 16:02] LABS: Vitamin D,25 Hydroxy 61.3 ng/mL
[2023-07-10 16:05] LABS: Albumin, Serum 3.3 g/dL (3.2-5.0); BUN 27 mg/dL (7-18); BUN/Creat Ratio 22.9 RATIO (10-20); Calcium,Total 9.9 mg/dL (8.5-10.1); Chloride 110 mmol/L (98-107); Creatinine, Serum 1.18 mg/dL (0.55-1.02); EST Glomerular Filtration Rate 46 mL/min (>60); Est Glom Filt Rate - Afr Amer 56 mL/min (>60); Glucose 73 mg/dL (74-106); Phosphorus 2.9 mg/dL (2.5-4.9); Potassium 4.5 mmol/L (3.5-5.1); Sodium Level 140 mmol/L (136-145)
[2023-07-10 16:08] LABS: Protein, Urine (Random) 9.1 mg/dL (<11.9); Protein:Creat Ratio 346 mg/g CRE (0-200)
[2023-07-11 08:04] LABS: PTHIN 80.8 pg/mL (18.4-80.1)
== END | disposition home or self-care (01) ==
LOC: MTLAB 11:44
PROVIDERS: PCP Internal Medicine; Referring Provider Internal Medicine Nephrology; Visit Provider Internal Medicine Nephrology
DX: N18.32 Chronic kidney disease, stage 3b (principal); E21.0 Primary hyperparathyroidism; E55.9 Vitamin D deficiency, unspecified
CPT/HCPCS: 36415; 80069; 82306; 82570; 83970; 84156; 85027

== ENCOUNTER → 2023-09-03 | Outpatient (CLI) | payer MEDICARE, SELFPAY ==
--- NOTE | 2023-09-03 12:57 | RAD_ITS ---
STUDY: X-RAY - LUMBAR SPINE REASON FOR EXAM: Female, 88 years old. LUMBAR PAIN TECHNIQUE: 2 view(s) of the lumbar spine were obtained. COMPARISON: Comparison is made with prior study dated May 22, 2020. FINDINGS: There is an exaggerated lumbar lordosis. There is a mild levoscoliosis of the lumbar spine. There is a normal alignment of the vertebrae. There is multilevel endplate spondylosis of the lumbar vertebrae. There is multi-level degenerative disc disease with multi-level disc space narrowing. There is atherosclerotic calcification of the abdominal aorta without a demonstrated aneurysm. Moderate amount of fecal material is seen in the colon. RAD/Lumbar Spine 2 or 3 Views IMPRESSION: Degenerative changes of the spine, as detailed above. Electronically Signed: Reid Hernandez MD at 15:24 EST ,
== END | disposition home or self-care (01) ==
LOC: RAD 12:46
PROVIDERS: PCP Internal Medicine; Referring Provider Anesthesiology Pain Medicine; Visit Provider Anesthesiology Pain Medicine
DX: M51.36 Other intervertebral disc degeneration, lumbar region (principal); M51.26 Other intervertebral disc displacement, lumbar region
CPT/HCPCS: 72100

== ENCOUNTER → 2023-09-05 | Outpatient (CLI) | payer MEDICARE, SELFPAY ==
--- NOTE | 2023-09-05 10:49 | CDU_ITS ---
Reason For Study: Carotid artery stenosis Rt. Velocities/BP Lt. Velocities/BP Prox CCA 96.6/7.8 cm/sec. Prox CCA 64.3/5.8 cm/sec. Mid CCA 88.1/8.8 cm/sec. Mid CCA 66.3/8 cm/sec. Dist CCA 73/6.9 cm/sec. Dist CCA 135.7/17 cm/sec. Prox ICA 99.3/11.1 cm/sec. Prox ICA 279.7/40.4 cm/sec. Mid ICA 112/13.3 cm/sec. Mid ICA 165.3/11.6 cm/sec. Dist ICA 97.4/11.5 cm/sec. Dist ICA 127.7/13.7 cm/sec. Rt. ICA/CCA = 1.27. Lt. ICA/CCA = 4.22. Prox ECA 470.3/15.3 cm/sec. Prox ECA 584/22.1 cm/sec. Rt. Vert. 82.8/11.3 cm/sec. Lt. Vert. 48.7/6.9 cm/sec. Right Extracranial There is homogeneous, smooth atherosclerotic plaque noted in the right common carotid artery. There is heterogeneous, irregular atherosclerotic plaque noted in the right internal carotid artery. There is heterogeneous, irregular atherosclerotic plaque noted in the right external carotid artery. Antegrade flow is noted in the right vertebral artery. Left Extracranial There is heterogeneous, irregular atherosclerotic plaque noted in the left common carotid artery. There is heterogeneous, irregular atherosclerotic plaque noted in the left internal carotid artery. There is heterogeneous, irregular atherosclerotic plaque noted in the left external carotid artery. Antegrade flow is noted in the left vertebral artery. Procedure Carotid Duplex [id number]. This is a Carotid Duplex examination using B-mode, color flow and specral Doppler. Exam performed in department. VL/Carotid Duplex Ultrasound Interpretation Summary Mild (<50%) stenosis right extracranial internal carotid. Severe (>70%) stenosis left extracranial internal carotid. Patent and antegrade vertebrals bilaterally. Ordering Physician: Louise Suarez Referring Physician: Martina Lal M.D. Performed By: Latonia Donato RVT
== END | disposition home or self-care (01) ==
PROVIDERS: PCP Internal Medicine; Referring Provider Physician Assistant; Visit Provider Physician Assistant
DX: I65.23 Occlusion and stenosis of bilateral carotid arteries (principal)
CPT/HCPCS: 93880

== ENCOUNTER 2023-09-10 16:25 | Emergency (ER) | payer MEDICARE, SELFPAY ==
[2023-09-10 16:26] VITALS: BP 206/58; PULSE 81; RESP 20; TEMP 36.4; O2SAT 98; BMI 38.7
--- NOTE | 2023-09-10 17:27 | EX.ED.DYSGE1 ---
HPI History of Present Illness Chief Complaint: Hypertension Narrative Narrative: 88-year-old female with history of hypertension presenting with high blood pressure. Blood pressure on arrival was 206/58. She has had some elevated blood pressures. She has not been able to show me her blood pressure diary and she is anywhere from the 160s to the 200s systolically. Her diastolic numbers have been from 50 to 70s. Patient denies headaches, vision change, nausea, vomiting, slurred speech, disability. Patient on amlodipine 10 mg p.o. daily. Losartan 100 mg p.o. daily, hydralazine 25 mg p.o. twice daily. Patient states previously on clonidine point 1 mg twice daily but was again good blood pressure control. This has been an ongoing issue for a couple of months. Blood pressures are a bit up-and-down. Within the last [address] Lal has changed her clonidine to hydralazine which has not made a significant decrease in her blood pressure. Patient states every day she wakes up with blood pressures in the 200s and takes her morning medications and after a couple of hours her blood pressures are better. Patient keep a diary of this. Patient states that she does see a salesperson men's and boys' clothing (Rissa) and states that Dr. Lal wanted him to control her blood pressure however this did not come to fruition. Patient has not called Dr. Kwok. 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 Carrizales and states that he did not adjust her medications and she did not get much information from her visit. Patient states he called the office today because her blood pressure was 200 systolic again and initially she states she did not get a hold of anybody. When she was able to get a hold of the nurse bi manager she states he told her that Dr. Lal told her to take her clonidine and discontinue the hydralazine. Patient states that she did not change her medications and states that he recommended when she called again that she go to the emergency room. [facility] Medical History Arthritis Bilateral carotid artery stenosis Bilateral extracranial carotid artery stenosis BMI 40.0-44.9, adult Body aches Breast abscess Breast cancer, right breast (~03/2022) CHF (congestive heart failure) Chronic kidney disease, stage 3a Cough Debility Diabetes mellitus Diastolic congestive heart failure Encounter for education FTT (failure to thrive) in adult GERD (gastroesophageal reflux disease) Glaucoma Hiatal hernia History of IBS HLD (hyperlipidemia) HTN (hypertension) Hyperlipidemia Hypertension Hypertension Hypoxia Hypoxia Labile blood pressure Labile blood pressure Left adrenal mass Left adrenal mass Malaise Nocturnal hypoxia ABDI (obstructive sleep apnea) PONV (postoperative nausea and vomiting) Recurrent incisional hernia with incarceration Right flank pain Shakiness Stage 3a chronic kidney disease (CKD) Type 2 diabetes mellitus Uncontrolled hypertension Wears glasses Wears hearing aid Home Medications latanoprost 0.005 % eye drops (Xalatan) 1 drp EACH EYE QHS Cataracts/Dry eye 07/29/14 [History Last Taken 07/13/22] cholecalciferol (vitamin D3) 125 mcg (5,000 unit) capsule 125 mcg PO DAILY SUPPLEMENT 04/01/22 [History Last Taken 07/13/22] liver supplement 1 cap PO QHS SUPPLEMENT 04/01/22 [History Last Taken 07/12/22] Colloidal Silver 2 tsp PO DAILY SUPPLEMENT 06/11/22 [History Last Taken 07/13/22] cinnamon bark 500 mg capsule (Cinnamon) 500 mg PO DAILY SUPPLEMENT 06/11/22 [History Last Taken 07/01/22] acetaminophen 500 mg tablet 1,000 mg PO Q6H PRN Pain 07/02/22 [History Last Taken 06/28/22] amlodipine 10 mg tablet 10 mg PO DAILY blood pressure 07/02/22 [History Last Taken 07/13/22] ascorbic acid (vitamin C) 500 mg tablet 500 mg PO BID supplement 07/02/22 [History Last Taken 07/13/22] nateglinide 60 mg tablet 60 mg PO TID dm 07/13/22 [History Last Taken 07/13/22] furosemide 20 mg tablet 20 mg PO 09/02/22 [History Last Taken Unknown] Andrographis xt 187.5 mg-Isatis root 150 mg-licorice 79.2 mg capsule 1 cap PO DAILY 03/03/23 [History Last Taken Unknown] aspirin 81 mg chewable tablet 81 mg PO .[facility] 03/03/23 [History Last Taken Unknown] grape seed extract 50 mg capsule 50 mg PO ONCE 03/03/23 [History Last Taken Unknown] magnesium oxide 400 mg PO DAILY 03/03/23 [History Last Taken Unknown] omega-3 fatty acids-fish oil 300 mg-1,000 mg capsule 1 cap PO DAILY SUPPLEMENT 03/03/23 [History Last Taken Unknown] berberine-herbal comb no.18 capsule cap PO 04/08/23 [History Last Taken Unknown] curcumin-phosphatidylcholine 500 mg capsule mg PO 04/08/23 [History Last Taken Unknown] atorvastatin 20 mg tablet 20 mg PO QHS #30 tabs 05/07/23 [Rx Last Taken Unknown] clonidine HCl 0.1 mg tablet 0.1 mg PO .COMPLEX #90 tabs 07/08/23 [Rx Last Taken Unknown] losartan 100 mg tablet 100 mg PO DAILY #90 tabs 07/08/23 [Rx Last Taken Unknown] Allergy/AdvReac Type Severity Reaction Status Date / Time clonidine [From Catapres] Allergy Intermediate Topical Verified 09/10/23 16:42 Reaction to PATCH ONLY, pills ok morphine AdvReac Intermediate mental Verified 09/10/23 16:42 status change meperidine HCl [From Demerol] AdvReac Mild mental Verified 09/10/23 16:42 status change Family History (Reviewed 06/03/23 @ 10:51 by Zelda Mcdaniels PRODUCTION CREW SUPERVISOR, PRODUCTION CREW SUPERVISOR-C) Brother Pancreatic cancer Diabetes Heart disease Lung cancer Hypertension Colon cancer Mother Hypertension Brother No problems noted. Brother Cancer Brother Sleep apnea Myocardial infarction Brother Sleep apnea Other Arthritis Asthma Surgical History History of cataract extraction History of cholecystectomy History of colonoscopy History of hysterectomy History of right breast biopsy (~03/2022) History of umbilical hernia repair Social History (Reviewed 06/03/23 @ 10:51 by Zelda Mcdaniels PRODUCTION CREW SUPERVISOR, PRODUCTION CREW SUPERVISOR-C) household members: 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 housing: house Smoking Status: Never smoker alcohol intake: never substance use type: does not use what type of physical activity do you participate in: none seatbelt use: always do you feel safe at home: Yes ROS ROS ED Constitutional Constitutional ED: Denies chills, fever(s) or sweats Eyes Eyes: Denies blurry vision or change in vision ENT ENT ED: Denies ear pain or sore throat Cardiovascular Cardiovascular: Denies chest pain, palpitations or racing heartbeat Respiratory/Chest Respiratory/Chest: Denies cough, dyspnea or sputum Gastrointestinal Gastrointestinal: Denies abdominal pain, constipation, diarrhea, nausea or vomiting Genitourinary Genitourinary ED: Denies dysuria, hematuria or urinary frequency Musculoskeletal Musculoskeletal: Denies arthralgias, myalgias or neck pain Integumentary Denies abscess, Abrasions or rash Neurologic Neurologic: Denies headache(s), paresthesias or weakness Psychiatric Psychiatric: Denies anxiety, depression, suicidal ideation or suicidal thoughts Endocrine Endocrinology: Denies polydipsia or polyuria EXAM Physical Exam Const Vital Signs: 09/10/23 16:26 09/10/23 16:25 09/10/23 18:25 Temperature 97.5 F L 98.5 F Temperature Source Temporal Temporal Pulse Rate 81 74 Respiratory Rate 20 H 18 Respiratory Effort Normal Non-Labored Respiratory Pattern Normal Blood Pressure 206/58 H 172/57 H Blood Pressure Mean 107 95 Pulse Ox 98 97 Oxygen Delivery Method Room Air Room Air 09/10/23 19:11 Temperature 97.5 F L Temperature Source Pulse Rate 87 Respiratory Rate 16 Respiratory Effort Respiratory Pattern Blood Pressure 164/82 H Blood Pressure Mean 109 Pulse Ox 96 Oxygen Delivery Method Positive well nourished General Appearance ED: NAD HEENT Reports moist mucous membranes Eyes PERRL and EOMs intact bilaterally Neck no lymphadenopathy Chest Wall inspection of chest normal Resp normal respiratory effort and clear to auscultation bilaterally Cardio regular rate and regular rhythm Neuro oriented x3 and CN's II-XII intact bilaterally Sensorium / Orientation: alert Psych mental status grossly normal Skin no rashes or lesions noted MDM MDM MDM Narrative Medical decision making narrative: Patient presenting with asymptomatic hypertension. In the room her blood pressure is 175/79. No red flag signs or symptoms. Other vital signs are stable. Discussed this with her at length and spent 20 minutes in the room explaining hypertension to her. Her biggest concern is that she would have a stroke since her blood pressures been trending still high although she has no symptoms. She states that all of her family members and her primary care physician tell her she is going to have a stroke from her blood pressure. She is been compliant with her medications and her blood pressures do wax and wane that we look at her blood pressure diary. She is currently supposed to be taking losartan 100 mg p.o. daily, amlodipine 10 mg p.o. daily, hydralazine 25 mg p.o. daily. She states she is supposed to change this to a clonidine but she is unsure about doing this because she did not actually speak to Dr. Lal. I will speak to the on-call and try to come up with a blood pressure medication regimen. I do not believe she has any lab work or imaging as she is asymptomatic. There was delay in the patient's care as I did not get a timely callback from Dr. Jolly. It took over an hour and I did have to call her back again at which point she states that she had limited recommendations as she did not see the patient and she does not have access to the records at this point. I went over all of her med list and eventually she stated to have the patient stay on the hydralazine and to give her the clonidine as well. Patient was counseled on this. I recommend she still continue to keep a blood pressure diary. We talked about how we will keep this accurately. Discussed this at length. Return precautions were discussed. Impression: 1. Hypertension Lab Data Attestation: I reviewed the patient's lab results. Discharge Plan Triage Chief Complaint: Hypertension ED Provider: Frank Balderas Dx/Rx/DC Orders Instructions: ED Hypertension, Established Prescriptions: No Action cholecalciferol (vitamin D3) 125 mcg (5,000 unit) capsule 125 mcg PO DAILY liver supplement 1 cap PO QHS cinnamon bark [Cinnamon] 500 mg capsule 500 mg PO DAILY Colloidal Silver 2 tsp PO DAILY Patient Comments: supplement furosemide 20 mg tablet 20 mg PO magnesium oxide 400 mg magnesium tablet 400 mg PO DAILY grape seed extract 50 mg capsule 50 mg PO ONCE Rx Instructions: give with food (meal/snack) Ggyddciprjac-Korcee-kolapmca 187.5-150-79.2 mg capsule 1 cap PO DAILY curcumin-phosphatidylcholine 500 mg capsule PO berberine-herbal comb no.18 Capsule PO latanoprost [Xalatan] 1 DROP bottle 1 drp EACH EYE QHS aspirin 81 mg tablet,chewable 81 mg PO .MWF Patient Comments: PT'S LAST DOSE OF ASPIRIN WILL BE 04/26/2022 omega-3 fatty acids-fish oil 300-1,000 mg capsule 1 cap PO DAILY Patient Comments: supplement acetaminophen 500 mg tablet 1,000 mg PO Q6H PRN (Reason: Pain) ascorbic acid (vitamin C) 500 mg tablet 500 mg PO BID amlodipine 10 mg tablet 10 mg PO DAILY nateglinide 60 mg tablet 60 mg PO TID atorvastatin 20 mg tablet 20 mg PO QHS Qty: 30 5RF losartan 100 mg tablet 100 mg PO DAILY Qty: 90 3RF clonidine HCl 0.1 mg tablet 0.1 mg PO .COMPLEX Qty: 90 3RF Rx Instructions: 0.1 mg orally up to twice a day as needed for systolic BP > 160; Primary Care Provider: Martina Lal Referrals: Martina Lal DO [Primary Care Provider] - Disposition Disposition: Home, Self Care Discharge Date/Time: 09/10/23 19:11
[2023-09-10 18:25] VITALS: BP 172/57; PULSE 74; RESP 18; TEMP 36.9; O2SAT 97
[2023-09-10 19:11] VITALS: BP 164/82; PULSE 87; RESP 16; TEMP 36.4; O2SAT 96
== END 2023-09-10 19:11 | disposition home or self-care (01) ==
PROVIDERS: Emergency Provider Student in an Organized Health Care Education/Training Program; PCP Internal Medicine; Visit Provider Student in an Organized Health Care Education/Training Program
DX: I13.0 Hypertensive heart and chronic kidney disease with heart failure and stage 1 through stage 4 chronic kidney disease, or unspecified chronic kidney disease (principal); I50.30 Unspecified diastolic (congestive) heart failure; N18.31 Chronic kidney disease, stage 3a; G47.33 Obstructive sleep apnea (adult) (pediatric)
CPT/HCPCS: 99282

== ENCOUNTER → 2023-09-15 | Outpatient (CLI) | payer MEDICARE, SELFPAY ==
--- NOTE | 2023-09-15 12:28 | MRI_ITS ---
EXAM: MR ABDOMEN WITHOUT INTRAVENOUS CONTRAST CLINICAL INDICATION: adrenal mass TECHNIQUE: Multiplanar and multisequence MR images of the abdomen without intravenous contrast. COMPARISON: CT abdomen and pelvis 07/13/2022 FINDINGS: LOWER THORAX: Stable small hiatal hernia. No pleural effusion. LIVER: Normal. Normal morphology. GALLBLADDER AND BILE DUCTS: Gallbladder is surgically absent. No intra- or extrahepatic biliary ductal dilation. PANCREAS: Normal. No focal cystic mass. SPLEEN: Normal. Normal size without focal cystic or solid mass. ADRENALS: Stable 2.4 cm left adrenal mass. The lesion is not contain adipose tissue. KIDNEYS AND URETERS: Small left kidney again seen. Small bilateral renal cysts. Normal renal size and position. No hydronephrosis. INTRAPERITONEAL SPACE: Normal. No ascites or other fluid collection. No free air. VASCULATURE: Normal. Abdominal aorta is non-dilated. LYMPH NODES: No enlarged lymph nodes. MRI/Abdomen without Contrast IMPRESSION: 1. Stable 2.4 cm left adrenal mass. Recommend correlation with hormone levels. 2. Stable small left kidney. Electronically Signed: Kentrell Farnsworth MD at 17:02 EST ,
== END | disposition home or self-care (01) ==
LOC: MRI 12:20
PROVIDERS: PCP Internal Medicine; Referring Provider Internal Medicine; Visit Provider Internal Medicine
DX: E27.8 Other specified disorders of adrenal gland (principal)
CPT/HCPCS: 74181

== ENCOUNTER → 2023-10-24 | Outpatient (CLI) | payer MEDICARE, SELFPAY ==
[2023-10-24 10:14] LABS: Absolute Lymphocyte Count 2.12 X10^3/uL (0.83-4.51); Absolute Neutrophil Count 5.5 X10^3/uL (2.0-7.7); Basophil# 0.09 X10^3/uL; Eosinophil# 0.26 X10^3/uL; Hematocrit 35.4 % (37-47); Hemoglobin 11.3 g/dL (12.0-15.0); Lymphocyte # 2.12 X10^3/ul (0.83-4.51); Lymphocyte % 24.3 % (19-41); Mean Corp Hgb Conc 31.9 g/dL (32-36); Mean Corpuscular Hgb 28.5 pg (27.0-32.0); Mean Corpuscular Volume 89.2 fL (81-99); Mean Platelet Vol. 10.2 fl (6.2-12.0); Monocyte# 0.76 X10^3/uL; Monocyte% 8.7 % (0-10); NRBC Flagged by Analyzer 0 % (0-5); Neutrophil # 5.46 X10^3/uL (2.7-7.7); Neutrophil % 62.8 % (47-70); Platelet Count 276 K/mm3 (150-450); RBC Distribution Width CV 13.9 % (11.6-14.6); RBC Distribution Width SD 45.9 fl (35.1-43.9); Red Blood Count 3.97 M/mm3 (4.2-5.4); White Blood Count 8.7 K/mm3 (4.4-11.0)
[2023-10-24 10:45] LABS: BNP,B-Type NATRIURETIC PEPTIDE 151.4 pg/mL (0-100)
[2023-10-24 11:02] LABS: Anion Gap 6 (5-15); BUN 44 mg/dL (7-18); BUN/Creat Ratio 29.3 RATIO (10-20); Calcium,Total 9.8 mg/dL (8.5-10.1); Chloride 109 mmol/L (98-107); EST Glomerular Filtration Rate 35 mL/min (>60); Est Glom Filt Rate - Afr Amer 42 mL/min (>60); Glucose 120 mg/dL (74-106); Potassium 4.4 mmol/L (3.5-5.1); Sodium Level 140 mmol/L (136-145); Thyroid Stim Hormone (TSH) 2.72 uIU/mL (0.358-3.74)
== END | disposition home or self-care (01) ==
LOC: MTLAB 09:35
PROVIDERS: PCP Internal Medicine; Referring Provider Internal Medicine Cardiovascular Disease; Visit Provider Internal Medicine Cardiovascular Disease
DX: I11.0 Hypertensive heart disease with heart failure (principal); I50.30 Unspecified diastolic (congestive) heart failure
CPT/HCPCS: 36415; 80048; 83880; 84443; 85025

== ENCOUNTER → 2023-11-12 | Outpatient (CLI) | payer MEDICARE, SELFPAY ==
[2023-11-12 15:37] LABS: Hematocrit 38.7 % (37-47); Hemoglobin 12.3 g/dL (12.0-15.0); Mean Corp Hgb Conc 31.8 g/dL (32-36); Mean Corpuscular Hgb 28.8 pg (27.0-32.0); Mean Corpuscular Volume 90.6 fL (81-99); Mean Platelet Vol. 10.5 fl (6.2-12.0); Platelet Count 268 K/mm3 (150-450); RBC Distribution Width SD 47.1 fl (35.1-43.9); Red Blood Count 4.27 M/mm3 (4.2-5.4); White Blood Count 8.4 K/mm3 (4.4-11.0)
[2023-11-12 15:54] LABS: Albumin, Serum 3.4 g/dL (3.2-5.0); BUN 47 mg/dL (7-18); BUN/Creat Ratio 31.3 RATIO (10-20); Calcium,Total 9.8 mg/dL (8.5-10.1); Chloride 110 mmol/L (98-107); EST Glomerular Filtration Rate 35 mL/min (>60); Est Glom Filt Rate - Afr Amer 42 mL/min (>60); Glucose 88 mg/dL (74-106); Phosphorus 2.7 mg/dL (2.5-4.9); Potassium 4.6 mmol/L (3.5-5.1); Sodium Level 140 mmol/L (136-145)
[2023-11-12 16:23] LABS: Protein, Urine (Random) 6.1 mg/dL (<11.9); Protein:Creat Ratio 265 mg/g CRE (0-200)
== END | disposition home or self-care (01) ==
LOC: MTLAB 11:08
PROVIDERS: PCP Internal Medicine; Referring Provider Internal Medicine Nephrology; Visit Provider Internal Medicine Nephrology
DX: N18.32 Chronic kidney disease, stage 3b (principal)
CPT/HCPCS: 36415; 80069; 82570; 84156; 85027

== ENCOUNTER → 2023-11-13 | Outpatient (CLI) | payer MEDICARE, SELFPAY | END | disposition home or self-care (01) | PROVIDERS: PCP Internal Medicine; Referring Provider Internal Medicine Cardiovascular Disease; Visit Provider Internal Medicine Cardiovascular Disease | DX: R00.1 Bradycardia, unspecified (principal) | CPT/HCPCS: 93225; 93226 ==

== ENCOUNTER → 2023-11-14 | Outpatient (CLI) | payer MEDICARE, SELFPAY ==
--- NOTE | 2023-11-14 08:59 | ECHOD_ITS ---
Reason For Study: ABDI Procedure This was a 2D Doppler, Color Flow transthoracic echocardiogram. The study was technically difficult. Definity declined. Exam performed in department. Left Ventricle Normal LV size. Mild concentric left ventricular hypertrophy. The left ventricular ejection fraction is 55 %. Stage 2 diastolic dysfunction. Right Ventricle Normal right ventricle. Atria The left atrium is severely enlarged. The right atrium is mildly enlarged. Mitral Valve Moderate (2+) mitral valve insufficiency. Tricuspid Valve Mild tricuspid valve insufficiency. Right ventricular systolic pressure estimated to be 48 mmHg. Aortic Valve Aortic sclerosis, no stenosis. Pulmonic Valve The pulmonic valve is not well visualized. Great Vessels The aortic root is not well visualized. Pericardium/Pleural No pericardial effusion. MMode/2D Measurements & Calculations LVIDd: 4.7 cm IVSd: 1.3 cm LAV(MOD-bp): 77.5 ml LVIDs: 2.8 cm LVPWd: 1.1 cm LAV(MOD-bp) Indexed: 40.1 ml/m2 FS: 40.6 % LAV(MOD-sp2): 80.7 ml LAV(MOD-sp4): 71.8 ml LA dimension(2D): 4.7 cm LA A4 area: 24.0 cm2 RA A4 area: 11.5 cm2 TAPSE: 2.3 cm Time Measurements MV dec time: 0.21 sec Doppler Measurements & Calculations MV E max yas: 113.7 cm/sec MV V2 max: 125.6 cm/sec MV dec slope: 546.4 cm/sec2 MV A max yas: 57.4 cm/sec MV max P.3 mmHg MV E/A: 2.0 MV V2 mean: 60.0 cm/sec MV mean P.8 mmHg MV V2 VTI: 48.1 cm Ao V2 max: 165.5 cm/sec LV V1 max: 142.3 cm/sec PA V2 max: 104.2 cm/sec Ao max P.0 mmHg LV V1 max P.1 mmHg PA V2 mean: 73.7 cm/sec Ao V2 mean: 120.0 cm/sec LV V1 mean P.2 mmHg Ao mean P.5 mmHg LV V1 mean: 106.7 cm/sec Ao V2 VTI: 52.5 cm LV V1 VTI: 48.1 cm AV (velocity ratio): 0.92 TR max yas: 290.3 cm/sec TR max P.7 mmHg ECHO/Echo Complete Interpretation Summary Mild concentric left ventricular hypertrophy. The left ventricular ejection fraction is 55 %. Stage 2 diastolic dysfunction. The left atrium is severely enlarged. The right atrium is mildly enlarged. Moderate (2+) mitral valve insufficiency. Mild tricuspid valve insufficiency. Right ventricular systolic pressure estimated to be 48 mmHg. Aortic sclerosis, no stenosis. Mean peak gradient 6 mmHg. Ordering Physician: Angely Carrizales Referring Physician: Angely Carrizales Performed By: Keyla Go RCS
== END | disposition home or self-care (01) ==
LOC: CVS 08:53
PROVIDERS: PCP Internal Medicine; Referring Provider Internal Medicine Cardiovascular Disease; Visit Provider Internal Medicine Cardiovascular Disease
DX: G47.33 Obstructive sleep apnea (adult) (pediatric) (principal)
CPT/HCPCS: 93306

== ENCOUNTER → 2024-03-08 | Outpatient (CLI) | payer MEDICARE, SELFPAY ==
--- NOTE | 2024-03-08 15:50 | RAD_ITS ---
INDICATION: BILAT HIP PAIN EXAMINATION/TECHNIQUE: X-RAY - RIGHT XR Femur Min 2 Views 4 VIEWS COMPARISON: No relevant prior comparison study available FINDINGS: BONES: No fracture demonstrated. Femoral head is normal contour. Moderate degenerative changes at the hip with joint space narrowing and subchondral sclerosis and osteophytes. JOINTS: No dislocation. SOFT TISSUES: Unremarkable. RAD/Femur Min 2 Views IMPRESSION: Moderate degenerative changes at the hip. No evidence of fracture. Electronically Signed: Viri Venegas MD at 7:52 EDT ,
--- NOTE | 2024-03-08 15:50 | RAD_ITS ---
INDICATION: HIP PAIN EXAMINATION/TECHNIQUE: X-RAY - LEFT XR Femur Min 2 Views 4 VIEWS COMPARISON: No relevant prior comparison study available FINDINGS: BONES: No fracture demonstrated. Femoral head is normal in contour. Mild joint space narrowing at the hip with subchondral sclerosis. Degenerative changes at the knee. JOINTS: No dislocation. SOFT TISSUES: Unremarkable. RAD/Femur Min 2 Views IMPRESSION: No evidence of fracture. Mild degenerative changes of the hip. Electronically Signed: Viri Venegas MD at 7:51 EDT ,
== END | disposition home or self-care (01) ==
LOC: RAD 15:29
PROVIDERS: PCP Internal Medicine; Referring Provider Anesthesiology Pain Medicine; Visit Provider Anesthesiology Pain Medicine
DX: M16.0 Bilateral primary osteoarthritis of hip (principal)
CPT/HCPCS: 73552

== ENCOUNTER 2024-03-12 19:09 | Emergency (ER) | payer MEDICARE, SELFPAY ==
[2024-03-12 19:10] VITALS: BP 173/67; PULSE 78; RESP 14; TEMP 36.1; O2SAT 96
--- NOTE | 2024-03-12 19:30 | RAD_ITS ---
INDICATION: Injury/Pain EXAMINATION/TECHNIQUE: X-RAY - RIGHT XR Foot Min 3 Views COMPARISON: None. FINDINGS: No acute fracture or malalignment. No blastic or lytic lesions. Mild scattered degenerative changes. First toe bunion. Plantar calcaneal enthesophyte. The soft tissues are unremarkable. RAD/Foot min 3 Views IMPRESSION: No acute radiographic abnormalities. Electronically Signed: Roger Khoury MD at 20:21 EDT ,
--- NOTE | 2024-03-12 19:45 | RAD_ITS ---
INDICATION: Injury/Pain EXAMINATION/TECHNIQUE: X-RAY - LEFT XR Foot Min 3 Views COMPARISON: None. FINDINGS: No acute fracture or malalignment. No blastic or lytic lesions. Moderate scattered degenerative changes. The soft tissues are unremarkable. RAD/Foot min 3 Views IMPRESSION: No acute radiographic abnormalities. Electronically Signed: Roger Khoury MD at 20:21 EDT ,
--- NOTE | 2024-03-12 19:58 | ED.VIS.LOWEX ---
HPI History of Present Illness Chief Complaint: Lower Extremity Injury Detail of Chief Complaint: Traumatic injury right and left foot Informant: patient Occured/Mechanism Mechanism/Context: Yes injury and Yes blunt trauma Comment: Chest drawer fell on her right and left foot Onset/Context/Timing Onset: Hours Context: Sudden Onset Timing: Continuous Quality of Pain: Dull and Aching Location: Right and left foot over the metatarsal bones Current Severity: Mild Maximum Severity: Severe Worsened by: Weightbearing and palpation Relieved by: Nothing Associated Symptoms Associated Symptoms: Negative for Parasthesia, Weakness or Loss of Funtion Narrative Narrative: Patient is an 88-year-old woman with history of breast cancer, bilateral carotid stenosis, hypertension, hyperlipidemia, diabetes, obstructive sleep apnea and heart failure with preserved ejection fraction who presents because of right and left foot pain after blunt trauma. She denies paresthesia, anesthesia or motor weakness. She has no other complaints or injury. Prior similar symptoms: No Recent Illness/Hospitalization: No PFSH PFSH Medical History (HFpEF) heart failure with preserved ejection fraction Arthritis Bilateral carotid artery stenosis Bilateral extracranial carotid artery stenosis BMI 40.0-44.9, adult Body aches Breast abscess Breast cancer, right breast (~03/2022) CHF (congestive heart failure) Chronic kidney disease, stage 3a Cough Debility Diabetes mellitus Diastolic congestive heart failure Encounter for education FTT (failure to thrive) in adult GERD (gastroesophageal reflux disease) Glaucoma Hiatal hernia History of IBS HLD (hyperlipidemia) HTN (hypertension) Hyperlipidemia Hypertension Hypertension Hypoxia Hypoxia Labile blood pressure Labile blood pressure Left adrenal mass Left adrenal mass Left carotid artery stenosis Malaise Nocturnal hypoxia Obesity ABDI (obstructive sleep apnea) PONV (postoperative nausea and vomiting) Recurrent incisional hernia with incarceration Right flank pain Shakiness Stage 3a chronic kidney disease (CKD) Type 2 diabetes mellitus Uncontrolled hypertension Wears glasses Wears hearing aid Home Medications ?Medication ?Instructions ?Recorded ?Last Taken ?Type latanoprost 0.005 % eye drops 1 drp EACH EYE QHS Cataracts/Dry 07/29/14 07/13/22 History (Xalatan) eye cholecalciferol (vitamin D3) 125 125 mcg PO DAILY SUPPLEMENT 04/01/22 07/13/22 History mcg (5,000 unit) capsule liver supplement 1 cap PO QHS SUPPLEMENT 04/01/22 07/12/22 History Colloidal Silver 2 tsp PO DAILY SUPPLEMENT 06/11/22 07/13/22 History cinnamon bark 500 mg capsule 500 mg PO DAILY SUPPLEMENT 06/11/22 07/01/22 History (Cinnamon) acetaminophen 500 mg tablet 1,000 mg PO Q6H PRN Pain 07/02/22 06/28/22 History ascorbic acid (vitamin C) 500 mg 500 mg PO BID supplement 07/02/22 07/13/22 History tablet nateglinide 60 mg tablet 60 mg PO TID dm 07/13/22 07/13/22 History Andrographis xt 187.5 mg-Isatis 1 cap PO DAILY 03/03/23 Unknown History root 150 mg-licorice 79.2 mg capsule grape seed extract 50 mg capsule 50 mg PO ONCE 03/03/23 Unknown History magnesium oxide 400 mg PO DAILY 03/03/23 Unknown History omega-3 fatty acids-fish oil 300 1 cap PO DAILY SUPPLEMENT 03/03/23 Unknown History mg-1,000 mg capsule berberine-herbal comb no.18 capsule cap PO 04/08/23 Unknown History curcumin-phosphatidylcholine 500 mg PO 04/08/23 Unknown History mg capsule losartan 100 mg tablet 100 mg PO DAILY #90 tabs 07/08/23 Unknown Rx furosemide 40 mg tablet 40 mg PO DAILY #90 tabs 10/16/23 Unknown Rx nifedipine 90 mg tablet,extended 90 mg PO DAILY #90 tabs 10/16/23 Unknown Rx release artery cleanse 1 cap PO DAILY 11/20/23 Unknown History aspirin 81 mg chewable tablet 81 mg PO DAILY HEART HEALTH 11/20/23 Unknown History calcium carbonate 500 mg PO DAILY 11/20/23 Unknown History circu max gold powder 1 tbsp PO DAILY 11/20/23 Unknown History gabapentin 100 mg capsule 100 mg PO TID 11/20/23 Unknown History clonidine HCl 0.1 mg tablet 0.1 mg PO .COMPLEX #90 tabs 11/21/23 Unknown Rx atorvastatin 20 mg tablet 20 mg PO QHS #30 tabs 12/19/23 Unknown Rx hydrocodone-acetaminophen 5-325mg 1 tab PO Q6H PRN PRN Pain 3 days 03/12/24 Unknown Rx 5mg-325mg #10 TABLETS Allergy/AdvReac Type Severity Reaction Status Date / Time clonidine (From Catapres) Allergy Intermediate Topical Verified 03/12/24 19:10 Reaction to PATCH ONLY, pills ok morphine AdvReac Intermediate mental Verified 03/12/24 19:10 status change meperidine HCl (From Demerol) AdvReac Mild mental Verified 03/12/24 19:10 status change Family History Brother Pancreatic cancer Diabetes Heart disease Lung cancer Hypertension Colon cancer Mother Hypertension Brother No problems noted. 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 housing: house Smoking Status: Never smoker alcohol intake: never substance use type: does not use what type of physical activity do you participate in: none seatbelt use: always do you feel safe at home: Yes ROS ROS ED Musculoskeletal Musculoskeletal: Reports other Details: Per HPI ; Denies arthralgias, back pain, myalgias or neck pain Neurologic Neurologic: Denies paresthesias or weakness Hematologic/Lymphatic Hematologic/Lymphatic: Denies easy bleeding or easy bruising EXAM Physical Exam Const Vital Signs: 03/12/24 19:10 Temperature 97 F L Temperature Source Temporal Pulse Rate 78 Respiratory Rate 14 Blood Pressure 173/67 H Blood Pressure Mean 102 Pulse Ox 96 Oxygen Delivery Method Room Air Positive well nourished and well developed General Appearance ED: well developed and NAD HEENT normocephalic and atraumatic Eyes PERRL Eyes Narrative: Extract muscles are intact. Neck full ROM and supple Resp normal respiratory effort Cardio regular rate and regular rhythm Extremity Extremity Narrative: Patient has ecchymosis to the dorsal surface of the right and left foot. There is pain palpation over the first, through fourth metatarsal right and left foot. There is no subungual hematoma of the great toes or toes of the right or left foot. DP pulses palpable bilateral. There is no pain ovation over the heel or ankle. General Extremety ED: Yes weight-bearing difficulty General Extremity: weight-bearing difficulty Neuro oriented x3 and CN's II-XII intact bilaterally Sensorium / Orientation: alert Psych mental status grossly normal Skin Skin Narrative: Ecchymosis right and left foot due to blunt trauma MDM MDM MDM Narrative Medical decision making narrative: X-rays obtained to evaluate for contusion versus fracture. Patient was medicated with Kramer for her pain.She was given Kramer versus NSAID because she has chronic kidney disease with an estimated GFR of 35. Discharge Plan Triage Chief Complaint: Lower Extremity Injury ED Provider: Tavon Dennis Dx/Rx/DC Orders Clinical Impression: Contusion of right foot, initial encounter, Hypertension, HLD (hyperlipidemia), Diabetes mellitus, Contusion of foot, left, Chronic kidney disease (CKD) stage G4/A1, severely decreased glomerular filtration rate (GFR) between 15-29 mL/min/1.73 square meter and albuminuria creatinine ratio less than 30 mg/g Instructions: ED Foot Contusion Prescriptions: New hydrocodone-acetaminophen 5-325 mg tablet 1 tab PO Q6H PRN PRN (Reason: Pain) 3 Days Qty: 10 0RF No Action cholecalciferol (vitamin D3) 125 mcg (5,000 unit) capsule 125 mcg PO DAILY liver supplement 1 cap PO QHS cinnamon bark [Cinnamon] 500 mg capsule 500 mg PO DAILY Colloidal Silver 2 tsp PO DAILY Patient Comments: supplement magnesium oxide 400 mg magnesium tablet 400 mg PO DAILY grape seed extract 50 mg capsule 50 mg PO ONCE Rx Instructions: give with food (meal/snack) Snfprqzgtpyo-Sexuvh-nuwagluo 187.5-150-79.2 mg capsule 1 cap PO DAILY curcumin-phosphatidylcholine 500 mg capsule PO berberine-herbal comb no.18 Capsule PO gabapentin 100 mg capsule 100 mg PO TID calcium carbonate 500 mg calcium (1,250 mg) tablet 500 mg PO DAILY artery cleanse 1 cap PO DAILY circu max gold powder 1 tbsp PO DAILY Rx Instructions: Mix with water furosemide 40 mg tablet 40 mg PO DAILY Qty: 90 3RF nifedipine 90 mg tablet extended release 90 mg PO DAILY Qty: 90 3RF latanoprost [Xalatan] 1 DROP bottle 1 drp EACH EYE QHS omega-3 fatty acids-fish oil 300-1,000 mg capsule 1 cap PO DAILY Patient Comments: supplement aspirin 81 mg tablet,chewable 81 mg PO DAILY Patient Comments: PT'S LAST DOSE OF ASPIRIN WILL BE 04/26/2022 acetaminophen 500 mg tablet 1,000 mg PO Q6H PRN (Reason: Pain) ascorbic acid (vitamin C) 500 mg tablet 500 mg PO BID nateglinide 60 mg tablet 60 mg PO TID losartan 100 mg tablet 100 mg PO DAILY Qty: 90 3RF clonidine HCl 0.1 mg tablet 0.1 mg PO .COMPLEX Qty: 90 3RF Rx Instructions: 0.1 mg orally Pt is to decrease to once a day for 1 week, then every other day for 1 week, then STOP; atorvastatin 20 mg tablet 20 mg PO QHS Qty: 30 5RF Primary Care Provider: Martina Lal Referrals: Martina Lal, [Primary Care Provider] - 1 Week Activity Restrictions/Additional Instructions: You need to stop your herbal supplements because it interacts with the pain medicine and may cause problems. Apply ice 6-10 times a day to your right and left foot Take pain medicine as needed Print Language: Citizen Of [place] Disposition Disposition: Home, Self Care
[2024-03-12 20:20] VITALS: BP 158/74; PULSE 75; RESP 16; TEMP 36.8; O2SAT 96
== END 2024-03-12 20:22 | disposition home or self-care (01) ==
PROVIDERS: Emergency Provider Emergency Medicine; PCP Internal Medicine; Visit Provider Emergency Medicine
DX: S90.31XA Contusion of right foot, initial encounter (principal); N18.4 Chronic kidney disease, stage 4 (severe); I13.0 Hypertensive heart and chronic kidney disease with heart failure and stage 1 through stage 4 chronic kidney disease, or unspecified chronic kidney disease; I50.32 Chronic diastolic (congestive) heart failure; E11.22 Type 2 diabetes mellitus with diabetic chronic kidney disease; S90.32XA Contusion of left foot, initial encounter; E78.5 Hyperlipidemia, unspecified; G47.33 Obstructive sleep apnea (adult) (pediatric); W19.XXXA Unspecified fall, initial encounter
CPT/HCPCS: 73630; 99282

== ENCOUNTER → 2024-03-15 | Outpatient (CLI) | payer MEDICARE, SELFPAY ==
[2024-03-15 12:16] LABS: Hematocrit 38.1 % (37-47); Hemoglobin 12.6 g/dL (12.0-15.0); Mean Corp Hgb Conc 33.1 g/dL (32-36); Mean Corpuscular Hgb 29.4 pg (27.0-32.0); Mean Platelet Vol. 9.8 fl (6.2-12.0); Platelet Count 257 K/mm3 (150-450); RBC Distribution Width CV 14.6 % (11.6-14.6); RBC Distribution Width SD 47.5 fl (35.1-43.9); Red Blood Count 4.28 M/mm3 (4.2-5.4); White Blood Count 8.4 K/mm3 (4.4-11.0)
[2024-03-15 12:44] LABS: Protein, Urine (Random) 8.4 mg/dL (<11.9); Protein:Creat Ratio 204 mg/g CRE (0-200)
[2024-03-15 13:16] LABS: Albumin, Serum 2.8 g/dL (3.2-5.0); BUN 33 mg/dL (7-18); BUN/Creat Ratio 25.4 RATIO (10-20); Calcium,Total 9.9 mg/dL (8.5-10.1); Chloride 110 mmol/L (98-107); EST Glomerular Filtration Rate 41 mL/min (>60); Est Glom Filt Rate - Afr Amer 50 mL/min (>60); Glucose 81 mg/dL (74-106); Phosphorus 1.8 mg/dL (2.5-4.9); Potassium 4.3 mmol/L (3.5-5.1); Sodium Level 140 mmol/L (136-145)
== END | disposition home or self-care (01) ==
LOC: MTLAB 10:11
PROVIDERS: PCP Internal Medicine; Referring Provider Internal Medicine Nephrology; Visit Provider Internal Medicine Nephrology
DX: N18.32 Chronic kidney disease, stage 3b (principal)
CPT/HCPCS: 36415; 80069; 82570; 84156; 85027

== ENCOUNTER → 2024-03-19 | Outpatient (CLI) | payer MEDICARE, SELFPAY ==
[2024-03-19 09:02] LABS: Bacteria 0 SEEN /hpf (None Seen); Mucous, Urine 0 SEEN /hpf (<or=2+); Red Blood Cells-Urine 0 SEEN /hpf (0-5); Squamous Epithelial Cells - UA 0 SEEN /hpf (5-10); White Blood Cells 0 SEEN /hpf (0-5)
[2024-03-19 12:27] LABS: Color, Urine Yellow (Yellow); Glucose, Dipstick Normal (Normal); Ketone-Dipstick Negative (Negative); Leukocyte Esterase-Dipstick 25 /ul (Negative); Nitrite-Dipstick Negative (Negative); Occult Blood-Urine Negative /ul (Negative); Protein-Dipstick 15 mg/dl (Negative); Urine Bilirubin Dipstick Negative (Negative); Urine Clarity Clear (Clear); Urine Urobilinogen Normal (Normal)
[2024-03-19 12:33] LABS: Absolute Neutrophil Count 5.2 X10^3/uL (2.0-7.7); Basophil# 0.05 X10^3/uL; Basophil% 0.6 % (0-1); Eosinophil# 0.14 X10^3/uL; Eosinophils% 1.7 % (0-5); Hematocrit 38.8 % (37-47); Hemoglobin 12.9 g/dL (12.0-15.0); Lymphocyte % 26.5 % (19-41); Mean Corp Hgb Conc 33.2 g/dL (32-36); Mean Corpuscular Hgb 29.3 pg (27.0-32.0); Microalbumin,Random Urine 49.4 mg/L (NO RANGE EST.); Microalbumin:Creatinine Ratio 104.2 mg/g CRE (<30 mg/g CRE); Monocyte# 0.66 X10^3/uL; Monocyte% 7.9 % (0-10); NRBC Flagged by Analyzer 0 % (0-5); Neutrophil # 5.23 X10^3/uL (2.7-7.7); Neutrophil % 62.9 % (47-70); Platelet Count 291 K/mm3 (150-450); RBC Distribution Width CV 14.4 % (11.6-14.6); RBC Distribution Width SD 46.6 fl (35.1-43.9); Red Blood Count 4.41 M/mm3 (4.2-5.4); White Blood Count 8.3 K/mm3 (4.4-11.0)
[2024-03-19 13:08] LABS: ALB/GLOB Ratio 0.8 RATIO (0.9-2.4); AST(SGOT) 15 U/L (15-37); Alanine Aminotransfer ALT/SGPT 21 U/L (13-56); Alkaline Phosphatase 75 U/L (45-117); Anion Gap 5 (5-15); BUN 38 mg/dL (7-18); BUN/Creat Ratio 30.9 RATIO (10-20); Calcium,Total 10.1 mg/dL (8.5-10.1); Chloride 109 mmol/L (98-107); Cholesterol 203 mg/dL (200); Creatinine, Serum 1.23 mg/dL (0.55-1.02); EST Glomerular Filtration Rate 44 mL/min (>60); Est Glom Filt Rate - Afr Amer 53 mL/min (>60); Glucose 104 mg/dL (74-106); High Density Lipoprotein 58 mg/dL; Potassium 4.6 mmol/L (3.5-5.1); Sodium Level 138 mmol/L (136-145); Triglycerides 93 mg/dL; Very Low Density Lipoprotein 19 mg/dL (5-40)
[2024-03-19 13:11] LABS: Vitamin D,25 Hydroxy 39.8 ng/mL
== END | disposition home or self-care (01) ==
LOC: MTLAB 08:56
PROVIDERS: PCP Internal Medicine; Referring Provider Internal Medicine; Visit Provider Internal Medicine
DX: E55.9 Vitamin D deficiency, unspecified (principal); R73.09 Other abnormal glucose
CPT/HCPCS: 36415; 80053; 80061; 81001; 82043; 82306; 82570; 84443; 85025

== ENCOUNTER → 2024-04-30 | Outpatient (CLI) | payer MEDICARE, SELFPAY ==
--- NOTE | 2024-04-30 09:41 | CDU_ITS ---
Reason For Study: Carotid Stenosis Rt. Velocities/BP Lt. Velocities/BP Prox CCA 83.9/12.6 cm/sec. Prox CCA 83.9/11.4 cm/sec. Mid CCA 91.2/12.6 cm/sec. Mid CCA 75.3/11.4 cm/sec. Dist CCA 79.0/15.1 cm/sec. Dist CCA 53.2/9.0 cm/sec. Prox ICA 106.0/15.1 cm/sec. Prox ICA 260.5/53.7 cm/sec. Mid ICA 82.6/13.9 cm/sec. Mid ICA 218.5/24.1 cm/sec. Dist ICA 101.1/20.0 cm/sec. Dist ICA 150.3/18.8 cm/sec. Rt. ICA/CCA = 1.2. Lt. ICA/CCA = 3.5. Prox ECA 417.1/12.9 cm/sec. Prox ECA 723.7/24.5 cm/sec. Rt. Vert. 56.9/10.2 cm/sec. Lt. Vert. 39.3/7.2 cm/sec. Right Extracranial There is intimal thickening but no significant atherosclerotic plaque noted in the right common carotid artery. There is heterogeneous, irregular atherosclerotic plaque noted in the right internal carotid artery. There is heterogeneous, irregular atherosclerotic plaque noted in the right external carotid artery. Antegrade flow is noted in the right vertebral artery. Left Extracranial There is heterogeneous, irregular atherosclerotic plaque noted in the left common carotid artery. There is heterogeneous, irregular atherosclerotic plaque noted in the left internal carotid artery. There is heterogeneous, irregular atherosclerotic plaque noted in the left external carotid artery. Antegrade flow is noted in the left vertebral artery. Procedure Carotid Duplex [id number]. This is a Carotid Duplex examination using B-mode, color flow and specral Doppler. The exam was diagnostic. Exam performed in department. VL/Carotid Duplex Ultrasound Interpretation Summary Mild (<50%) stenosis right extracranial internal carotid. Severe (>70%) stenosis left extracranial internal carotid. Patent and antegrade vertebrals bilaterally. Ordering Physician: Willy Trimble Referring Physician: Martina Lal M.D. Performed By: George Rader RVT
== END | disposition home or self-care (01) ==
LOC: CVS 09:40
PROVIDERS: PCP Internal Medicine; Referring Provider Surgery Trauma Surgery; Visit Provider Surgery Trauma Surgery
DX: I65.23 Occlusion and stenosis of bilateral carotid arteries (principal)
CPT/HCPCS: 93880

== ENCOUNTER 2024-07-01 10:30 | Outpatient (RCR) | payer MEDICARE, SELFPAY ==
--- NOTE | 2024-05-18 12:31 | HP.PTEVAL ---
Patient's Visit Information Visit Information Visit Information: DEBBIE KENNEY is a 88 year old F referred to Physical Therapy by Dr. Tamra Francis MD with a diagnosis of Back pain. Date of Evaluation: 05/18/24 Physical Therapist: Willy Vance, DPT, OCS, CSCS Visit Plan Frequency: 2x /Week Duration: 4-6 Weeks Plan: 2x/week for 4 weeks for 1. Teach and progress HEP of back ROM sitting and hook lying as tolerated progress to HEP 2. core strength and activity progressing to HEP, general strength and activity progress to HEP Can do STM and MH if needed. Subjective Subjective: Has back pain coming around R side. Wrose in am and at night getting out of bed. Uses walker at night and when first gets up. 03/30 when lets go of walker to sit on toilet in am. Lukasz sent to [facility], he has given injections in back which did not help much. Gave gabapentin but not taking due to risks. 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 As she gets going during the day it gets better to intermittient, stiff and OA, Twisting and turning or sitting too long and getting up make it worse later in day. Will have RFA today injection at 1:30. Sleeping is not too bad. Stays up late to minimize bathroom trips. No regular exercises. Lives alone and sews alot. Cooks alot and stands and needs to sit frequently. Gets tired and sore and needs frequent rests. Dresses, bathroom self, Girl mows yard for her and cleans house 1x per month. Walk in shower. No falls but is very careful, uses cane during day but walker in am. Does not need it in the house. Pain LBP: Pain Intensity (Out of 10): 0 Pain Intensity Range: 0 and 10 Objective Objective: Wallks with cane , stiff and slow but mod I, Trasnfers slowlky with UE I. bed trasnfer is painful with back pain until legs bent. Walking is hunched overand forward stooped about 15 degrees. Lb aROM is ext max limited with pain, flexion mod limited, SB mod llimitations. Very stiff. Hip AROM ext 0, abd 20 and flexion 90 no pain. Knee and ankles WFL. reflexes 2/3 patella adn achilles. Sensation LE WNL to gross light touch. strength in hips is , knees 3+ and quad pain on R, ankles 4/5 - slump, - SLR. Balance/Special Test Scores Oswestry Low Back Score: 16 Goals Goal 1:: LB pain 75% better adn 2/10 at worst in am Goal Time Frame: 4-6 Weeks Goal 2:: I appropriate HEP to limit future problems Goal Time Frame: 4-6 Weeks Goal 3:: Walk confidently without hesitation getting up from chair. Goal Time Frame: 4-6 Weeks Goal 4:: 10 or less oswestry Goal Time Frame: 4-6 Weeks Rehabilitation Potential Physical Therapy Diagnosis: back pain and stiffness from degeneration limiting comfortable funciton. Rehabilitation Potential: Fair Anticipated Interventions Patient/Client Instruction: Educate patient on: Condition and Plan of Care For the Purpose of:: To decrease pain, To increase ROM, To improve nutrient delivery to tissue and To improve muscle performance and motor function Therapeutic Exercise to Include: Strength training, Flexibilty training, Passive ROM, Active ROM and Dynamic Lumbar Stabilization For the Purpose of:: To decrease pain, To increase ROM, To improve nutrient delivery to tissue and To improve muscle performance and motor function Manual Therapy Techniques to Include: Mobilization and Soft tissue mobilization For the Purpose of:: To decrease pain and To increase ROM Thermo therapy (hot pack): Yes For the Purpose of:: To decrease pain, To increase ROM and To improve nutrient delivery to tissue Text: Thank you for the opportunity to evaluate your patient. For Medicare and Medicare HMO plans, please review the plan of care and approve it. It will need to be FAXED BACK to us at [phone] for Medicare purposes. For Medicare only, by signing this I certify the plan of care. Please let me know if there are questions or concerns regarding this plan of care. Physician Signature: Date:
--- NOTE | 2024-07-01 11:59 | HP.PTDCSUM ---
Discharge Summary D/C summary: It has been my pleasure to treat DEBBIE KENNEY referred by Dr. Tamra Francis MD, with the diagnosis of Back pain for a total of 10 visit(s). Discharge Date: 07/01/24 Please see the following information for a summary of their discharge status. Subjective Subjective: First week felt OK but then got some pain. Getting some R Leg cramping and pain in addition to back pain. Doing home exercises daily 2-3x10. they are tolerable and needs to rest. Pain to 9/10 in LB and R leg. Using MH at home. Using cane to get around. Considering RFA and getting injections for that. Dtr said she is disciplined with her home ex. Pain LBP: Pain Intensity (Out of 10): 2 Overall Improvement % Improvement: 0 Objective Objective/Function: extension in LB very painful R side as is R SB, flexion is slow but not painful, L SB is good. Walking with cane mod I. Goals Goal 1:: LB pain 75% better adn 2/10 at worst in am Goal Progress: Not Progressing Goal 2:: I appropriate HEP to limit future problems Goal Progress: Goal Met Goal 3:: Walk confidently without hesitation getting up from chair. Goal Progress: Goal Met Goal 4:: 10 or less oswestry Goal Progress: Not Progressing Plan Plan: d/c, pt to Dr. Francis today and aquatic therapy should be considered after RFA if appropriate. D/C Information Discharge Comments: No progress with pain and will see [facility] today and continue HEP. d/c sentence: If there are questions or concerns regarding this patient's physical therapy, please feel free to call me at [phone]. Thank you for the referral of this patient. Sincerely, Willy Vance, DPT, OCS, CSCS Balance/Gait/Functional tests Balance/Special Test Scores Oswestry Low Back Score: 15 Improvement % Improvement: 0
== END 2024-07-01 19:00 | disposition home or self-care (01) ==
LOC: PT 10:30
PROVIDERS: PCP Internal Medicine; Referring Provider Anesthesiology Pain Medicine; Visit Provider Anesthesiology Pain Medicine
DX: M54.9 Dorsalgia, unspecified (principal)
CPT/HCPCS: 97110; 97162

== ENCOUNTER → 2024-10-07 | Outpatient (CLI) | payer MEDICARE, SELFPAY ==
--- NOTE | 2024-10-07 14:00 | BI_ITS ---
EXAM: SCRN MAMM (CAD)W/ROBINSON BILAT DATE: 10/07/2024 CLINICAL HISTORY: F, Age 89 y/o , SCRN MAMM (CAD)W/ROBINSON BILAT. Personal history right right lumpectomy. BREAST CANCER RISK ASSESSMENT: Not assessed. TECHNIQUE: Bilateral screening digital breast tomosynthesis with 2D and 3D images. Computer aided detection. COMPARISON: Prior exam(s) dated March 27, 2022.. FINDINGS: TISSUE DENSITY: The breast tissue is composed of scattered area of fibroglandular density. Bilateral Breast Mammographic Findings: No significant masses, calcifications or other abnormalities are identified. The patient is status post lumpectomy in the deep upper lateral aspect of the right breast with evidence of postoperative scarring. BI/SCRN MAMM (CAD)W/ROBINSON BILAT IMPRESSION: Right Breast: BIRADS 2 BENIGN FINDING. Left Breast: BIRADS 2 BENIGN FINDING. OVERALL FINAL ASSESSMENT: BIRADS 2 BENIGN FINDING RECOMMENDATION: Routine annual follow-up in 1 Year A letter with findings and recommendations will be mailed to the patient. Reading Location: [place] [id number]
--- NOTE | 2024-10-07 14:15 | CT_ITS ---
PROCEDURE: ABDOMEN WITHOUT IV CONTRAST 10/07/2024 REASON FOR EXAM: History of adrenal mass. TECHNIQUE: Abdomen CT with intravenous contrast. Coronal and Sagittal reconstruction series were provided. One or more dose reduction techniques were used (e.g., Automated exposure control, adjustment of the mA and/or kV according to patient size, use of iterative reconstruction technique. PATIENT PREPARATION: Per protocol ORAL CONTRAST TYPE: None. CONTRAST: No IV contrast. RADIATION DOSE SUMMARY: CTDlvol: 22.49 mGy DLP: 840.78 mGycm COMPARISON: Comparison is made with prior study dated July 13, 2000 22. FINDINGS: Lung bases: Mild dependent atelectasis Liver: Normal size. No mass. Gallbladder: Surgically absent. Spleen: Normal size. Pancreas: Normal size without evidence of mass surrounding inflammation or ductal dilation. Adrenals: Left adrenal nodule consistent with an adenoma this measures 2.1 cm. This is unchanged. Kidneys: Stable marked atrophy of the left kidney. Stable cysts in the right kidney. Bowel: Sigmoid diverticulosis. Small hiatal hernia. Prior anterior ventral hernia repair with a mesh. Residual fat containing lower anterior abdominal wall hernia. Lymph nodes: Unremarkable. Vasculature: Diffuse atherosclerotic plaque formation of the abdominal aorta and the major visceral branches. Peritoneum / Retroperitoneum: Unremarkable. Bones: Degenerative changes of the spine. CT/Abdomen without IV Contrast IMPRESSION: Stable appearance of the left adrenal gland. Marked atrophy of the left kidney. Stable cysts in the right kidney. Status post cholecystectomy. Prior anterior abdominal hernia repair with a mesh with residual anterior lower abdominal wall fat containing hernia. Reading Location: [facility]
== END | disposition home or self-care (01) ==
PROVIDERS: PCP Internal Medicine; Referring Provider Internal Medicine; Visit Provider Internal Medicine
DX: Z12.31 Encounter for screening mammogram for malignant neoplasm of breast (principal)
CPT/HCPCS: 74150; 77063; 77067

== ENCOUNTER → 2024-10-12 | Outpatient (CLI) | payer MEDICARE, SELFPAY ==
[2024-10-12 10:43] LABS: Absolute Neutrophil Count 4.9 X10^3/uL (2.0-7.7); Basophil# 0.08 X10^3/uL; Basophil% 0.9 % (0-1); Eosinophil# 0.36 X10^3/uL; Hematocrit 41.4 % (37-47); Lymphocyte % 27.9 % (19-41); Mean Corp Hgb Conc 33.8 g/dL (32-36); Mean Corpuscular Hgb 30.6 pg (27.0-32.0); Mean Corpuscular Volume 90.4 fL (81-99); Mean Platelet Vol. 10.1 fl (6.2-12.0); Monocyte# 1.06 X10^3/uL; Monocyte% 11.8 % (0-10); NRBC Flagged by Analyzer 0 % (0-5); Neutrophil # 4.92 X10^3/uL (2.7-7.7); Platelet Count 264 K/mm3 (150-450); RBC Distribution Width CV 13.2 % (11.6-14.6); RBC Distribution Width SD 43.7 fl (35.1-43.9); Red Blood Count 4.58 M/mm3 (4.2-5.4)
[2024-10-12 12:02] LABS: ALB/GLOB Ratio 1.1 RATIO (0.9-2.4); AST(SGOT) 18 U/L (<=31); Alanine Aminotransfer ALT/SGPT 19 U/L (<=34); Albumin, Serum 3.7 g/dL (3.4-4.8); Alkaline Phosphatase 78 U/L (35-104); Anion Gap 11 (5-15); BUN 31 mg/dL (4-19); BUN/Creat Ratio 23.9 RATIO (10-20); Bilirubin, Direct 0.36 mg/dL (0.00-0.30); Calcium,Total 10.2 mg/dL (7.6-11.0); Carbon Dioxide 23.1 mmol/L (21.0-32.0); Chloride 105 mmol/L (98-108); Cholesterol 153 mg/dL (<=200); Creatinine, Serum 1.31 mg/dL (0.70-1.20); EST Glomerular Filtration Rate 39 (>60); Globulin 3.5 g/dL (2.2-4.2); Glucose 121 mg/dL (70-99); High Density Lipoprotein 51 mg/dL; Low Density Lipoprotein Calc. 77 mg/dL; Potassium 4.6 mmol/L (3.3-5.1); Protein, Total 7.2 g/dL (5.9-8.4); Sodium Level 139 mmol/L (133-145); Total Bilirubin 0.91 mg/dL (0.00-1.30); Triglycerides 127 mg/dL; Very Low Density Lipoprotein 25 mg/dL (5-40); Vitamin D,25 Hydroxy 63.5 ng/mL (30-100)
[2024-10-12 15:22] LABS: Phosphorus 2.8 mg/dL (2.7-4.5)
[2024-10-12 16:04] LABS: Color, Urine Yellow (Yellow); Glucose, Dipstick Normal (Normal); Ketone-Dipstick Negative (Negative); Leukocyte Esterase-Dipstick 25 /ul (Negative); Nitrite-Dipstick Negative (Negative); Occult Blood-Urine Negative /ul (Negative); Protein-Dipstick Negative (Negative); Urine Bilirubin Dipstick Negative (Negative); Urine Clarity Clear (Clear); Urine Urobilinogen Normal (Normal)
[2024-10-12 19:57] LABS: Microalbumin:Creatinine Ratio 404.6 mg/g CRE; Protein, Urine (Random) < 6.0 mg/dL (0.0-12.0); Protein:Creat Ratio UNABLE TO CALCULATE mg/g CRE (0-200)
== END | disposition home or self-care (01) ==
PROVIDERS: PCP Internal Medicine; Referring Provider Internal Medicine; Visit Provider Internal Medicine
DX: E11.22 Type 2 diabetes mellitus with diabetic chronic kidney disease (principal); N18.32 Chronic kidney disease, stage 3b; E78.5 Hyperlipidemia, unspecified
CPT/HCPCS: 36415; 80053; 80061; 81002; 82043; 82248; 82306; 82570; 84100; 84156; 84443; 85025; 85027

== ENCOUNTER → 2024-11-09 | Outpatient (CLI) | payer MEDICARE, SELFPAY ==
--- NOTE | 2024-11-09 12:53 | CDU_ITS ---
Reason For Study Reason For Study: Lt ICA STENOSIS Rt. Velocities/BP Lt. Velocities/BP Prox CCA 73.6/8.5 cm/sec. Prox CCA 63.6/6.5 cm/sec. Mid CCA 83.0/14.2 cm/sec. Mid CCA 84.5/9.8 cm/sec. Dist CCA 91.2/12.6 cm/sec. Dist CCA 60.7/11.0 cm/sec. Prox ICA 92.5/17.6 cm/sec. Prox ICA 257.3/44.0 cm/sec. Mid ICA 114.6/15.1 cm/sec. Mid ICA 133.0/16.7 cm/sec. Dist ICA 99.8/13.9 cm/sec. Dist ICA 93.5/14.5 cm/sec. Rt. ICA/CCA = 1.4. Lt. ICA/CCA = 3.0. Prox ECA 358.9/10.7 cm/sec. Prox ECA 424.0/21.0 cm/sec. Rt. Vert. 56.4/12.2 cm/sec. Lt. Vert. 50.4/7.6 cm/sec. Right Extracranial There is heterogeneous, irregular atherosclerotic plaque noted in the right common carotid artery. There is heterogeneous, irregular atherosclerotic plaque noted in the right internal carotid artery. There is heterogeneous, irregular atherosclerotic plaque noted in the right external carotid artery. Antegrade flow is noted in the right vertebral artery. Left Extracranial There is heterogeneous, irregular atherosclerotic plaque noted in the left common carotid artery. There is heterogeneous, irregular atherosclerotic plaque noted in the left internal carotid artery. The left internal carotid artery is very tortuous. There is heterogeneous, irregular atherosclerotic plaque noted in the left external carotid artery. Antegrade flow is noted in the left vertebral artery. Procedure Carotid Duplex [id number]. This is a Carotid Duplex examination using B-mode, color flow and specral Doppler. The exam was diagnostic. Exam performed in department. VL/Carotid Duplex Ultrasound Interpretation Summary Mild (<50%) stenosis right extracranial internal carotid. Severe (>70%) stenosis left extracranial internal carotid. Patent and antegrade vertebrals bilaterally. Ordering Physician: Louise Suarez Referring Physician: Martina Lal M.D. Performed By: George Rader RVT
== END | disposition home or self-care (01) ==
PROVIDERS: PCP Internal Medicine; Referring Provider Physician Assistant; Visit Provider Physician Assistant
DX: I65.23 Occlusion and stenosis of bilateral carotid arteries (principal)
CPT/HCPCS: 93880

== ENCOUNTER → 2024-12-06 | Outpatient (CLI) | payer MEDICARE, SELFPAY ==
[2024-12-06 14:50] LABS: AST(SGOT) 24 U/L (<=31); Alanine Aminotransfer ALT/SGPT 19 U/L (<=34); Albumin, Serum 3.9 g/dL (3.4-4.8); Alkaline Phosphatase 80 U/L (35-104); Bilirubin, Direct 0.28 mg/dL (0.00-0.30); Cholesterol 147 mg/dL (<=200); Globulin 3.6 g/dL (2.2-4.2); High Density Lipoprotein 46 mg/dL; Low Density Lipoprotein Calc. 77 mg/dL; Protein, Total 7.5 g/dL (5.9-8.4); Total Bilirubin 0.68 mg/dL (0.00-1.30); Triglycerides 121 mg/dL; Very Low Density Lipoprotein 24 mg/dL (5-40)
== END | disposition home or self-care (01) ==
LOC: MTLAB 09:14
PROVIDERS: PCP Internal Medicine; Referring Provider Physician Assistant Medical; Visit Provider Physician Assistant Medical
DX: E78.5 Hyperlipidemia, unspecified (principal)
CPT/HCPCS: 36415; 80061; 80076

== ENCOUNTER → 2024-12-24 | Outpatient (CLI) | payer MEDICARE, SELFPAY ==
[2024-12-24 10:18] LABS: Absolute Lymphocyte Count 1.58 X10^3/uL (0.83-4.51); Absolute Neutrophil Count 11.7 X10^3/uL (2.0-7.7); Basophil# 0.08 X10^3/uL; Basophil% 0.5 % (0-1); Eosinophil# 0.24 X10^3/uL; Eosinophils% 1.6 % (0-5); Lymphocyte # 1.58 X10^3/ul (0.83-4.51); Lymphocyte % 10.4 % (19-41); Mean Corp Hgb Conc 34.2 g/dL (32-36); Mean Corpuscular Hgb 30.2 pg (27.0-32.0); Mean Corpuscular Volume 88.2 fL (81-99); Mean Platelet Vol. 10.1 fl (6.2-12.0); Monocyte# 1.52 X10^3/uL; NRBC Flagged by Analyzer 0 % (0-5); Neutrophil # 11.68 X10^3/uL (2.7-7.7); Neutrophil % 77.2 % (47-70); POSITIVE DIFFERENTIAL YES; Platelet Count 248 K/mm3 (150-450); RBC Distribution Width CV 13.1 % (11.6-14.6); RBC Distribution Width SD 42.7 fl (35.1-43.9); Red Blood Count 4.31 M/mm3 (4.2-5.4); White Blood Count 15.1 K/mm3 (4.4-11.0)
[2024-12-24 10:32] LABS: Differential Indicated SCAN CRITERIA MET
[2024-12-24 10:49] LABS: AST(SGOT) 18 U/L (<=31); Alanine Aminotransfer ALT/SGPT 16 U/L (<=34); Albumin, Serum 3.6 g/dL (3.4-4.8); Alkaline Phosphatase 80 U/L (35-104); Anion Gap 11 (5-15); BUN 30 mg/dL (4-19); Carbon Dioxide 23.1 mmol/L (21.0-32.0); Chloride 100 mmol/L (98-108); Creatinine, Serum 1.56 mg/dL (0.70-1.20); EST Glomerular Filtration Rate 32 (>60); Globulin 3.5 g/dL (2.2-4.2); Glucose 178 mg/dL (70-99); Potassium 4.4 mmol/L (3.3-5.1); Protein, Total 7.1 g/dL (5.9-8.4); Sodium Level 135 mmol/L (133-145); Total Bilirubin 1.23 mg/dL (0.00-1.30)
== END | disposition home or self-care (01) ==
LOC: LABSPEC 10:07
PROVIDERS: PCP Internal Medicine; Referring Provider Nurse Practitioner Family; Visit Provider Nurse Practitioner Family
DX: R50.9 Fever, unspecified (principal)
CPT/HCPCS: 80053; 85025

== ENCOUNTER → 2025-01-12 | Outpatient (CLI) | payer MEDICARE, SELFPAY ==
--- OUTSIDE RECORDS SUMMARY | 2025-01-12 06:20 | XMS RPT_ITS | CCD ---
Author Organization [facility] Care Team Providers Care Feather Trimmer Name Role Phone CHEKIH GAYLELE DPM Unavailable Unavailable CHEIKH GAYLELE DPM Unavailable Unavailable HORNCHEIKHLE DPM Unavailable Unavailable PHILIP KUMAR Unavailable Unavailable PROVIDER, UNKNOWN Unavailable Unavailable Michael Michel MD Unavailable Ciesa, Marquita Unavailable Turner Balderas Unavailable Unavailable Unavailable Unavailable Ciesa YAMILETH, Marquita Unavailable Turner Balderas LPN Unavailable Unavailable Unavailable Unavailable Martina Lal DO Unavailable Sanam Quesada Unavailable Jero Garcia Unavailable Diane Austin MA Unavailable Unavailable Mohamud FRUIT HARVESTER, Nelda Unavailable Unavailable Slarb FRUIT HARVESTER, Steffany Unavailable Unavailable Gravius FRUIT BUYING GRADER, Keri Unavailable Unavailable Ciesa FIXED ROUTE BUS OPERATOR, Marquita Unavailable Dr. Martina Lal Primary Care Provider [phone] Dr. Martina Lal Referring Provider Dr. Michael Michel Attending Provider [phone] Martina Lal DO Unavailable Tamra Francis Unavailable mitzy Stovall Unavailable Unavailable Dr. Martina Lal Primary Care Provider [phone] Dr. Martina Lal Referring Provider Arslan WINSLOW, ERIKA Ndiaye Attending Provider [phone] Dr. Martina Lal Primary Care Provider Dr. Martina Lal Referring Provider Dr. Michael Michel Attending Provider Sarabjit Cyrus Unavailable Cepaytonl Michael LAINEZ Unavailable Cooper Kwok Unavailable Dr. Michael Michel Referring Provider Dr. Michael Michel Other Provider Michael Amado Unavailable Dr. Angely Carrizales Attending Provider Dr. Michael Michel Referring Provider Yodit [place] PAPeter Mir Attending Provider Dr. Venkat Burnham Emergency Provider [phone]([facility])[phone] Dr. Felice Waller Attending Provider Dr. Willy Booth Admit Provider Dr. Willy Booth Attending Provider Dr. Willy Booth Other Provider Dr. Loan Luu Other Provider Dr. Felice Waller Other Provider Dr. Loan Luu Attending Provider Dr. Meng Martinez Attending Provider Dr. Meng Martinez Other Provider Dr. Michael Baires Other Provider Dr. Odalys Mccullough Attending Provider Dr. Lisa Mariscal Emergency Provider Dr. Brent Kelley Attending Provider Dr. Dena Kwok Other Provider Dr. Stew Cruz Other Provider Dr. Stew Cruz Attending Provider Dr. Martina Lal Primary Care Provider Dr. Martina Lal Referring Provider Anand, Dr. Michael Chi Attending Provider Dr. Angely Carrizales Attending Provider Dr. Michael Michel Referring Provider Dr. Michael Michel Other Provider YAW Flores Attending Provider Dr. Venkat Burnham Emergency Provider Dr. Felice Waller Attending Provider Dr. Willy Booth Admit Provider Dr. Willy Booth Attending Provider Dr. Willy Booth Other Provider Dr. Loan Luu Other Provider Dr. Felice Waller Other Provider Dr. Loan Luu Attending Provider Dr. Meng Martinez Attending Provider Dr. Meng Martinez Other Provider Dr. Michael Baires Other Provider Dr. Odalys Mccullough Attending Provider Dr. Lisa Mariscal Emergency Provider Dr. Brent Kelley Attending Provider Dr. Dena Kwok Other Provider Dr. Stew Cruz Other Provider Dr. Stew Cruz Attending Provider Dr. Lance Arevalo Chi Admit Provider Dr. Lance Arevalo Chi Other Provider Dr. Jose Maria Hudson Other Provider Dr. Buzz Duran Other Provider Jax 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, 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-C Rama Attending Provider Dr. Willy Trimble Attending Provider Manchak FRUIT BUYING GRADER, Katharina Unavailable Unavailable Daya FRUIT BUYING GRADER, Kayela Unavailable Unavailable Dr. Socorro Ivan Attending Provider Shawanda 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, 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-C Susan Attending Provider MD Zeferino Kingsley Emergency Provider Franco, Dr. Joie Lin Admit Provider Franco, Dr. Joie Lin Attending Provider Franco, Dr. Joie Lin Other Provider Dr. Patricia Valenzuela Other Provider Dr. Patricia Valenzuela Attending Provider Zelda Mcdaniels Unavailable Unavailable Dr. Martina Lal Primary Care Provider Dr. Martina Lal Referring Provider Dr. Michael Michel Attending Provider Dr. Anthony Davila Emergency Provider Dr. Wendy Mishra Admit Provider Dr. Wendy Mishra Attending Provider Dr. Wendy Mishra Other Provider Dr. Ryder De Los Snatos Attending Provider Dr. Ryder De Los Santos Other Provider Lucia Rodriguez MA Unavailable Unavailable Dr. Martina Lal Primary Care Provider Dr. Martina Lal Referring Provider Dr. Michael Michel Attending Provider Dr. Angely Carrizales Attending Provider Dr. Michael Michel Referring Provider Dr. Michael Michel Other Provider Yodit [place], PA-C Adeola Attending Provider Dr. Venkat Burnham Emergency Provider Dr. Willy Booth Admit Provider Dr. Willy Booth Attending Provider Dr. Willy Booth Other Provider Dr. Loan Luu Other Provider Dr. Felice Waller Other Provider Dr. Loan Luu Attending Provider Dr. Meng Martinez Attending Provider Dr. Meng Martinez Other Provider Dr. Michael Baires Other Provider Dr. Odalys Mccullough Attending Provider Dr. Lisa Mariscal Emergency Provider Dr. Brent Kelley Attending Provider Dr. Dena Kwok Other Provider Dr. Stew Cruz Other Provider Dr. Stew Cruz Attending Provider Dr. Lance Arevalo Chi Admit Provider Dr. Lance Arevalo Chi Other Provider Dr. Jose Maria Hudson Other Provider Dr. Buzz Duran Other Provider Jax 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, 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-C Rama Attending Provider Dr. Willy Trimble Attending Provider Dr. Socorro Ivan Attending Provider Shawanda 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, 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-C Susan Attending Provider MD Zeferino Kingsley Emergency Provider Dr. Joie Gamez Admit Provider Dr. Joie Gamez Attending Provider Dr. Joie Gamez Other Provider Dr. Patricia Valenzuela Other Provider Dr. Patricia Valenzuela Attending Provider Dr. Anthony Davila Emergency Provider Dr. Wendy Mishra Admit Provider Dr. Wendy Mishra Attending Provider Dr. Wendy Mishra Other Provider Dr. Ryder De Los Santos Attending Provider Dr. Ryder De Los Santos Other Provider Arslan 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, ERIKA Ndiaye Attending Provider Dr. Martina Lal Primary Care Provider Dr. Michael Michel Attending Provider Dr. Martina Lal Referring Provider Dr. Stew Cruz Referring Provider Dr. Wendy Mishra Referring Provider Martina Lal DO Attending Unavailable Martina Lal DO Consulting Unavailable Dr. Martina Lal Primary Care Provider MD Zeferino Kingsley Emergency Provider Franco, Dr. Joie Lin Admit Provider Dr. Joie Gamez Attending Provider Dr. Joie Gamez Other Provider Dr. Stew Cruz Attending Provider Dr. Stew Cruz Referring Provider Dr. Patricia Valenzuela Other Provider Dr. Jose Maria Hudson Other Provider Dr. Patricia Valenzuela Attending Provider Dr. Martina Lal Referring Provider Jax 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, 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-C Rama Attending Provider Dr. Anthony Davila Emergency Provider Dr. Wendy Mishra Admit Provider Dr. Wendy Mishra Attending Provider Dr. Wendy Mishra Other Provider Dr. Ryder De Los Santos Attending Provider Dr. Ryder De Los Santos Other Provider Dr. Loan Luu Attending Provider Dr. Loan Luu Other Provider Dr. Wendy Mishra Referring Provider Arslan 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, 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-C Zelda Attending Provider Dr. Cyrus Whipple Attending Provider Dr. Martina Lal Primary Care Provider Dr. Martina Lal Referring Provider Jax 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, 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-Jonn Ontiveros Attending Provider Arslan 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, 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-C Zelda Attending Provider Dr. Martina Lal Primary Care Provider Dr. Martina Lal Referring Provider Dr. Tk Varela Attending Provider Fast DO, Emily A Unavailable Dr. Angely Carrizales Attending Provider Dr. Willy Trimble Attending Provider Matt 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, 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-C Ovidio Hadley Attending Provider Dr. Martina Lal Primary Care Provider Dr. Martina Lal Referring Provider Dr. Angely Carrizales Referring Provider PADMINI Suarez Attending Provider Dr. Martina Lal Primary Care Provider [phone] Dr. Martina Lal Referring Provider 1([facility])[phone] PADMINI Suarez Attending Provider 1([facility])-[phone] Arslan 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NAYLA-Jonn Ndiaye Attending Provider Dr. Martina Lal Primary Care Provider 1([facility] )-[phone] Dr. Martina Lal Referring Provider Dr. Willy Trimble Attending Provider 1([facility])-57 10 PADMINI Suarez Referring Provider 1([facility])-[phone] Martina Lal Primary Care Provider 1([facility] )-4 Dr. Willy Trimble Attending Provider 1([facility])-57 10 PADMINI Suarez Referring Provider 1([facility])-[address] Martina Lal Referring Provider 1([facility])[phone] Dr. Angely Carrizales Attending Provider 1([facility])[phone] Dr. Martina Lal Primary Care Provider 1([facility] )-3434 Dr. Lisa Mariscal Emergency Provider 1([facility])[phone] Willy Booth Admit Provider Dr. Willy Booth Other Provider Dr. Meng Martinez Other Provider 1([facility])[phone] Dena Kwok Other Provider 1([facility])[phone] Dr. Stew rCuz Attending Provider Dr. Stew Cruz Other Provider 1([facility])[phone] Meng Martinez Attending Provider 1([facility])[phone] Yodit [place], PA-C Adeola Attending Provider Dr. Martina Lal Referring Provider 1([facility])[phone] Dr. Loan Luu Attending Provider Dr. Loan Luu Other Provider Dr. Cyrus Whipple Attending Provider 1([facility])[phone] Martina Lal DO Primary Care Provider Tito LAINEZ, Dr. Barboza Attending Provider Tito LAINEZ, Dr. Barboza Referring Provider Lukasz PORTILLO, Dr. Mack Referring Provider [phone] Atilio LAINEZ, Dr. Aguilera Attending Provider David [place], Kimberly Estrada Attending Provider Lukasz PORTILLO, Dr. Mack Attending Provider Rissa LAINEZ, Dr. Fernandes Other Provider Lukasz PORTILLO, Dr. Mack Primary Care Provider [phone] Louise West Attending Provider Erick [place], Louise Referring Provider 1([facility])-57 10 Lukasz PORTILLO, Dr. Mack Primary Care Provider [phone] Lukasz PORTILLO, Dr. Mack Referring Provider 1([facility] )4 Atilio LAINEZ, Dr. Aguilera Attending Provider David [place], Kimberly Estrada Attending Provider Kmiberly Hunt Referring Provider [phone] Warren LAINEZ, Dr. Kennedy Attending Provider Rajiv 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-CMackenzie Attending Provider Rajiv WINSLOW-CMackenzie Referring Provider Neftaly Goldsmith Attending Provider Lukasz, Martina Primary Care Unavailable Neftaly Pro Attending Unavailable Lukasz, Martina Referring Unavailable Lukasz, Martina Primary Care Unavailable Zelda Mcdaniels Attending Unavailable Lukasz, Martina Referring Unavailable Lukasz, Martina Primary Care Unavailable Felice Mcclure Attending Unavailable Lukasz, Martina Referring Unavailable Dena Kwok Consulting Unavailable Lukasz, Martina Primary Care Unavailable Lukasz, Martina Referring Unavailable Lukasz, Martina Attending Unavailable Tamra Francis Attending Unavailable Lukasz, Martina Primary Care Unavailable Basali, Ayman Referring Unavailable Lukasz, Martina Primary Care Unavailable Kimberly Hunt Attending Unavail able Kimberly Hunt Referring Unavail able Rissa, Jayaprakas Referring Unavailable Rissa, Jayaprakas Attending Unavailable Lukasz, Martina Primary Care Unavailable Lukasz, Martina Attending Unavailable Lukasz, Martina Primary Care Unavailable Lukasz, Martina Referring Unavailable Lukasz, Martina Referring Unavailable [place], Willy Attending Unavailable Lukasz, Martina Primary Care Unavailable Lukasz, Martina Primary Care Unavailable Kimberly Hunt Referring Unavail able Kimberly Hunt Attending Unavail able Lukasz, Martina Primary Care Unavailable Dennis Tavon Attending Unavailable Lukasz, Martina Primary Care Unavailable [place], [place] Attending Unavailable Lukasz, Martina Referring Unavailable Lukasz, Martina Primary Care Unavailable Kimberly Hunt Attending Unavail able Atilio, Willy Referring Unavailable [place], Willy Attending Unavailable Lukasz, Martina Primary Care Unavailable Lukasz, Martina Primary Care Unavailable Nolt, Nela Attending Unavailable Atilio, Willy Attending Unavailable Lukasz, Martina Primary Care Unavailable Suarez, Louise Referring Unavailable Lukasz, Martina Primary Care Unavailable Lukasz, Martina Referring Unavailable Mcdaniels, Zelda Attending Unavailable Lukasz, Martina Referring Unavailable Lukasz, Martina Primary Care Unavailable Kimberly Hunt Attending Unavail able Rajiv, Mackenzie Referring Unavailable Rajiv, Mackenzie Attending Unavailable Lukasz, Martina Primary Care Unavailable Lukasz, Martina Primary Care Unavailable Suarez, Louise Referring Unavailable Suarez, Louise Attending Unavailable Atilio, Willy Referring Unavailable [place], Willy Attending Unavailable Lukasz, Martina Primary Care Unavailable Basali, Ayman Attending Unavailable Lukasz, Martina Primary Care Unavailable Basali, Ayman Referring Unavailable Lukasz, Martina Referring Unavailable Lukasz, Martina Primary Care Unavailable Lukasz, Martina Attending Unavailable Allergies Allergy Classification Reported Allergen(s) Allergy Type Date of Onset Reaction(s) Facility Opioid Agonists (12 sources) Meperidine; Translations: [Demerol *ANALGESICS - OPIOID*] Drug Allergy [facility] Work Phone: Comment on above: mental status change vomitibng Quinolones (antibiotic) (6 sources) levoFLOXacin; Translations: [Levaquin *FLUOROQUINOLON ES*] Drug Allergy [facility] Work Phone: Comment on above: GI upset (2 sources) Meperidine Drug Allergy 7 [facility] Work Phone: (20 sources) levoFLOXacin; Translations: [Levaquin *FLUOROQUINOLON ES*] Drug Allergy [facility] Work Phone: Comment on above: GI upset (20 sources) Meperidine; Translations: [Demerol *ANALGESICS - OPIOID*] Drug Allergy [facility] Work Phone: Comment on above: mental status change (20 sources) Morphine; Translations: [Morphine Sulfate (Concentrate) *ANALGESICS - OPIOID*] Drug Allergy 0 mental status change [facility] Work Phone: Comment on above: vomitibng (20 sources) Meperidine; Translations: [meperidine HCl] Drug Allergy 0 mental status change [facility] (16 sources) cloNIDine Drug Allergy 3 Topical Reaction to PATCH ONLY, pills ok [facility] (1 source) cloNIDine Drug Allergy 5 [facility] (1 source) Morphine Drug Allergy 5 [facility] Medications Current Medications Medication Drug Class(es) Dates Sig (Normalized) Sig (Original) anastrozole 1 mg oral tablet (2 sources) Aromatase Inhibitor Start: 06-18-2022 take 1 mg by mouth once daily Anastrozole Active 1 MG PO DAILY June 18, 2022 12:00am Andrographis-Isatis -Licorice (11 sources) Start: 03-03-2023 take 1 capsule by mouth once daily Andrographis-Isati s-Licorice Active 1 CAP PO DAILY March 02, 2023 11:00pm Start: 03-03-2023 take 1 capsule by mo uth once daily Pxhbyscclguy-Jyortl-Cuvaamoh Active 1 CA P PO DAILY March 03, 2023 12:00am Artery Cleanse (20 sources) Start: 05-22-2020 Artery Cleanse Active PO daily May 22, 2020 3:00pm Start: 05-22-2020 End: 03-18-2022 Artery Cleanse Discontinued PO daily May 22, 2020 12:00am March 18, 2022 9:26am Start: 05-22-2020 End: 03-18-2022 Artery Cleanse Discontinued PO daily May 22, 2020 1:00am March 18, 2022 10:26am Start: 05-22-2020 Artery Cleanse Active PO daily May 22, 2020 1:00am Berberine-Herbal Comb No.18 (10 sources) Start: 04-08-2023 Berberine-Herb al Comb No.18 Active CAP PO April 07, 2023 11:00pm Start: 04-08-2023 Berberine-Herb al Comb No.18 Active CAP PO April 08, 2023 12:00am calcium carbonate 1250 mg oral tablet (7 sources) Start: 11-20-2023 take 1 tablet by mouth once daily Calcium Carbonate 500 mg calcium (1,250 mg) tablet Active 500 mg PO DAILY November 20, 2023 12:00am Cardio [facility] (20 sources) Start: 05-22-2020 Cardio Platinu m Healthy Active PO DAILY May 22, 2020 3:00pm Start: 05-22-2020 End: 05-23-[address] [facility] Disc ontinued 1 NMA PO DAILY May 22, 2020 1:00am May 23, 2022 3:05pm Start: 05-22-2020 End: 05-23-2022 take 1 capsule by mouth once daily [facility] Discontinued 1 CAP PO DAILY May 22, 2020 12:00am May 23, 2022 2:05pm Start: 05-22-2020 End: 05-23-2022 take 1 capsule by mouth once daily [facility] Discontinued 1 CAP PO DAILY May 22, 2020 1:00am May 23, 2022 3:05pm Start: 05-22-2020 take 1 capsule by mo [facility] once daily [facility]io [facility] Active 1 CAP PO DAILY May 22, 2020 1:00am Start: 05-22-2020 Cardio Platinu m Healthy Active PO DAILY May 22, 2020 1:00am cholecalciferol 0.125 mg oral capsule (20 sources) Vitamin D Start: 04-01-2022 End: 06-10-2022 take 1 capsule by mouth once daily Cholecalciferol (Vitamin D3) 125 mcg (5,000 unit) capsule Active 125 ug PO DAILY April 01, 2022 12:00am Start: 09-15-2020 End: 04-04-2021 take 1 capsule by mouth once daily Vitamin D3 250 MCG (46953 UT) Oral Capsule 1 (one) Capsule daily as directed for 0 days Quantity: 30 {Capsule} Refills: 0 Ordered: 04-Apr-2021 Nelda Mallory LPN Start : 15-Sep-2020 End : 04-Apr-2021 Inactive take 1 capsule by mo uth once daily Vitamin D3 50 MCG (2000 UT) Oral Capsule daily (50 MCG (2000 UT)) Inactive Vitamin D3 25 MC G (1000 UT) Oral Tablet (25 MCG (1000 UT)) Inactive Curcumin-Phosphatidylcholine (10 sources) Start: 04-08-2023 Curcumin-Phosp hatidylcholine Active MG PO April 07, 2023 11:00pm Start: 04-08-2023 Curcumin-Phosp hatidylcholine Active MG PO April 08, 2023 12:00am Dupilumab (7 sources) Start: 08-17-2024 Dupilumab (Dup ixent Pen) 200 mg/1.14 mL pen injector Active 200 mg SC every 2 weeks August 17, 2024 1:00am furosemide 40 mg oral tablet (20 sources) Loop Diuretic Start: 10-16-2023 End: 10-04-2024 take 1 tablet by mouth once daily Furosemide 40 mg tablet Active 40 mg PO DAILY 90 October 04, 2024 3:53pm Start: 07-29-2022 End: 10-16-2023 Furosemide 20 mg tablet Disc ontinued 20 mg PO September 02, 2022 1:00am October 16, 2023 10:27am Start: 2022 take 1 tablet by lizzie th once daily Lasix 40 mg oral tablet tad Tablet daily for 0 days Quantity: 30 {Tablet} Refills: 1 Ordered: 26-Jul-2022 Emily Jolly DO Start : 26-Jul-2022 Active Start: 07-25-2022 take 1 tablet by lizzie th once daily Lasix 40 mg oral tablet tad Tablet daily for 0 days Quantity: 30 {Tablet} Refills: 1 Ordered: 25-Jul-2022 Martina Lal DO, DO, Kathleen Start : 25-Jul-2022 Active Start: 07-02-2022 End: 09-04-2022 take 1 tablet by mouth once daily Furosemide 40 mg tablet Discontinued 40 mg PO DAILY July 02, 2022 1:00am September 04, 2022 4:11pm On Hold: Restart on 07/18/2022 Start: 06-03-2022 End: 06-18-2022 take 1 tablet by mouth once daily Furosemide 40 mg Tablet Discontinued 40 mg PO DAILY June 03, 2022 1:00am June 18, 2022 4:03pm Start: 04-19-2022 End: 04-19-2022 take 1 tablet by mouth once daily Lasix 40 MG Oral Tablet 1 (one) Tablet daily for 0 days Quantity: 30 {Tablet} Refills: 1 Ordered: 19-Apr-2022 Martina Lal DO, DO, Kathleen Start : 19-Apr-2022 End : 19-Apr-2022 Discontinued Start: 10-10-2021 take 40 mg by mouth once daily Furosemide Active 40 MG PO DAILY November 09, 2021 12:00am Start: 09-26-2021 End: 10-10-2021 take 1 tablet by mouth once daily in the morning Lasix 20 MG Oral Tablet 1 (one) Tablet qam for 0 days Quantity: 4 {Tablet} Refills: 0 Ordered: 10-Oct-2021 Turner Balderas LPN Start : 26-Sep-2021 End : 10-Oct-2021 Inactive latanoprost 0.05 mg/ml ophthalmic solution (20 sources) Prostaglandin Analog Start: 07-29-[address] (Xalatan) 1 DROP bottle Active 1 NMA EACH EYE AT BEDTIME July 29, 2014 1:00am losartan potassium 100 mg oral tablet (20 sources) Angiotensin 2 Receptor Yenny Start: 07-08-2023 End: 05-03-2024 take 1 tablet by mouth once daily Losartan 100 mg tablet Active 100 mg PO DAILY May 03, 2024 3:19pm magnesium oxide 400 mg oral tablet (18 sources) Start: 03-03-2023 take 1 tablet by mouth once daily Magnesium Oxide 400 mg magnesium tablet Active 400 mg PO DAILY March 03, 2023 12:00am nateglinide 60 mg oral tablet (20 sources) Glinide Start: 07-13-2022 take 1 tablet by mouth three times daily Nateglinide 60 mg tablet Active 60 mg PO THREE TIMES A DAY July 13, 2022 1:00am Start: 08-27-2017 End: 07-10-2022 take 1 tablet by mouth three times daily Nateglinide 60 MG tablet Discontinued 60 mg PO THREE TIMES A DAY August 27, 2017 1:00am July 10, 2022 2:02pm Comment on above: Mail order. please fill for 90 d ay supply Deane-3 Fatty Acids-Fish Oil (20 sources) Start: 03-03-2023 take 1 capsule by mouth once daily Deane-3 Fatty Acids-Fish Oil Active 1 CAP PO DAILY March 03, 2023 12:40pm Start: 03-03-2023 take 1 capsule by mo ut once daily Deane-3 Fatty Acids-Fish Oil Active 1 CAP PO DAILY March 03, 2023 1:40pm Start: 07-29-2014 Deane-3 Fatty Acids-Fish Oil Active 1 EACH PO DAILY July 29, 2014 7:51pm Start: 07-29-2014 End: 03-03-2023 Deane-3 Fatty Acids-Fish Oil Discontinued 1 EACH PO DAILY July 29, 2014 12:00am March 03, 2023 12:44pm Start: 07-29-2014 End: 03-03-2023 Deane-3 Fatty Acids-Fish Oil Discontinued 1 EACH PO DAILY July 29, 2014 1:00am March 03, 2023 1:44pm Start: 07-29-2014 Deane-3 Fatty Acids-Fish Oil Active 1 EACH PO DAILY July 29, 2014 12:00am Start: 07-29-2014 Deane-3 Fatty Acids-Fish Oil Active 1 EACH PO DAILY July 29, 2014 1:00am Potassium, Sodium Phosphates (Phos-Nak) 280-160-250 mg powder in packet (7 sources) Start: 04-28-2024 Potassium, Sod ium Phosphates (Phos-Nak) 280-160-250 mg powder in packet Active 1 NMA PO daily April 28, 2024 12:00am rosuvastatin calcium 5 mg oral tablet (20 sources) HMG-CoA Reductase Inhibitor Start: 08-17-2024 take 1 tablet by mouth at bedtime Rosuvastatin 5 mg tablet Active 5 mg PO AT BEDTIME 90 August 17, 2024 1:00am Start: 05-28-2021 End: 06-10-2022 Rosuvastatin Calcium 5 MG Or al Tablet 1 (one) Tablet qohs for 0 days Quantity: 30 {Tablet} Refills: 3 Ordered: 10-Jun-2022 Alondra Stapleton CMA Start : 28-May-2021 End : 10-Jun-2022 Inactive Start: 12-13-2020 Rosuvastatin C alcium 5 MG Oral Tablet 1 (one) Tablet qohs for 0 days Quantity: 30 {Tablet} Refills: 3 Ordered: 13-Dec-2020 Nicolasa Nazario CNP, CNP, Mary E Start : 13-Dec-2020 Active sodium chloride 0.111 meq/ml nasal spray (6 sources) Start: 05-23-2022 Sodium Chlorid e (Deep Sea Nasal) 0.65 % Aerosol,[place] Active 2 SPRAY NASAL 3 TIMES DAILY NEEDED 0 May 22, 2022 11:00pm (20 sources) Start: 06-11-2022 Start: 04-01-2022 Start: 04-01-2022 End: 05-23-2022 Start: 04-01-2022 End: 05-23-2022 Start: 04-01-2022 End: 05-23-2022 Start: 05-22-2020 End: 03-18-2022 Start: 05-22-2020 End: 05-23-2022 Start: 07-29-2014 Completed/Discontinued Medications Medication Drug Class(es) Dates Sig (Normalized) Sig (Original) acetaminophen 500 mg oral tablet (20 sources) Start: 06-03-2022 End: 08-17-2024 take 2 tablets by mouth every six hours as needed for pain Acetaminophen 500 mg tablet Discontinued 1000 mg PO EVERY 6 HOURS as needed for Pain July 02, 2022 12:58pm August 17, 2024 1:58pm Start: 05-23-2022 End: 06-03-2022 take 1-10 tablets by mouth every eight hours as needed for pain Acetaminophen 500 mg Tablet Discontinued 1000 mg PO EVERY 8 HOURS NEEDED as needed for Pain 1-10 Or Fever 0 May 23, 2022 12:00am June 03, 2022 8:08pm Start: 05-18-2022 End: 05-23-2022 Acetaminophen 500 mg Tablet Discontinued 1000 mg PO EVERY 8 HOURS 0 May 18, 2022 12:00am May 23, 2022 3:05pm OTC TID for 5 days then prn as needed for pain Start: 05-18-2022 End: 07-02-2022 Start: 05-18-2022 End: 05-23-2022 Acetaminophen Discontinued 1 000 MG PO EVERY 8 HOURS 0 May 18, 2022 12:00am May 23, 2022 3:05pm OTC TID for 5 days then prn as needed for pain Start: 05-18-2022 End: 07-02-2022 take 1000 mg by mouth every eight hours as needed Acetaminophen Discontinued 1000 MG PO EVERY 8 HOURS NEEDED 0 May 23, 2022 12:00am June 03, 2022 8:08pm Start: 09-30-2018 End: 05-22-2020 take 2 tablets by mouth every six hours as needed for headache Acetaminophen 325 MG tablet Discontinued 650 mg PO EVERY 6 HOURS NEEDED as needed for Headache September 30, 2018 12:00am May 22, 2020 2:58pm Start: 09-30-2018 End: 05-22-2020 take 650 mg by mouth every six hours as needed Acetaminophen Discontinued 650 MG PO EVERY 6 HOURS NEEDED September 30, 2018 12:00am May 22, 2020 2:58pm acetaminophen 325 mg / HYDROcodone bitartrate 5 mg oral tablet (20 sources) Opioid Agonist Start: 03-12-2024 End: 04-28-2024 Hydrocodone-Acetaminophen 5- 325 mg tablet Discontinued 1 {tbl} PO EVERY 6 HOURS NEEDED as needed for Pain 04 22March 12, 2024 April 28, 2024 2:30pm Start: 04-30-2022 take 1 tablet by lizzie th every eight hours Hydrocodone-Acetaminophen Active 1 TABLE T PO Q8H 5 2 April 30, 2022 Start: 08-27-2017 End: 06-26-2018 Hydrocodone-Acetaminophen 1 TABLET tablet Discontinued 1 - 2 {tbl} PO EVERY 4 HOURS NEEDED as needed for Pain 20 August 27, 2017 1:00am June 26, 2018 2:14pm Start: 08-27-2017 End: 06-26-2018 take 1 tablet by mouth every four hours as needed Hydrocodone-Acetaminophen Discontinued 1 - 2 TABLET PO EVERY 4 HOURS NEEDED 07 12August 27, 2017 1:00am June 26, 2018 2:14pm Start: 08-27-2017 End: 06-26-2018 albuterol 0.833 mg/ml / ipratropium bromide 0.167 mg/ml inhalation solution (20 sources) Anticholinergic, beta2-Adrenergic Agonist Start: 09-30-2018 End: 05-22-2020 take 1 mL by inhalation every four hours Ipratropium-Albuterol 3 ML solution for nebulization Discontinued 3 mL INHALATION EVERY 4 HOURS WHILE AWAKE September 30, 2018 12:00am May 22, 2020 2:56pm Start: 09-30-2018 End: 05-22-2020 take 1 mL by inhalation every four hours Ipratropium-Albuterol Discontinued 3 ML INHALATION EVERY 4 HOURS WHILE AWAKE September 30, 2018 12:00am May 22, 2020 2:56pm Start: 09-30-2018 End: 05-22-2020 amLODIPine 10 mg oral tablet (20 sources) Dihydropyridine Calcium Channel Yenny Start: 05-23-2022 End: 07-02-2022 Amlodipine 10 mg tablet Discontinued 10 mg PO DAILY May 23, 2022 6:00pm June 03, 2022 8:09pm Hold for SBP less than 130 mmHg Start: 05-10-2022 End: 10-16-2023 take 1 tablet by mouth once daily Amlodipine 10 mg tablet Discontinued 10 mg PO DAILY July 02, 2022 12:58pm October 16, 2023 10:01am Start: 11-09-2021 End: 05-18-2022 take 1 tablet by mouth once daily Amlodipine (Norvasc) 5 mg tablet Discontinued 5 mg PO DAILY November 09, 2021 12:00am May 18, 2022 10:40am Start: 08-27-2021 End: 10-03-2021 take 1 tablet by mouth once daily Norvasc 5 MG Oral Tablet 1 (one) Tablet qd for 0 days Quantity: 60 {Tablet} Refills: 0 Ordered: 03-Oct-2021 KettyNicolasa bocanegra Start : 27-Aug-2021 End : 03-Oct-2021 Inactive Start: 08-09-2021 take 1 tablet by lizzie once daily Norvasc 5 MG Oral Tablet 1 (one) Tablet qd for 0 days Quantity: 60 {Tablet} Refills: 0 Ordered: 10-Aug-2021 Keri Johnson CMA Start : 09-Aug-2021 Active Start: 05-09-2017 AMLODIPINE BES YLATE 5 MG TABS daily AMLODIPINE BESYLATE [id number] Michael Michel MD Fpzbbjdmodlr-Tvluhs-Xgtuufhe 187.5-150-79.2 mg capsule (7 sources) Start: 03-03-2023 End: 08-17-2024 Spnjsgeariyi-Uldoet-Bfdoybpb 187.5-150-79.2 mg capsule Discontinued 1 NMA PO DAILY March 03, 2023 12:00am August 17, 2024 1:58pm artery cleanse (20 sources) Start: 11-20-2023 End: 08-17-2024 artery cleanse Discontinued 1 NMA PO DAILY November 20, 2023 12:00am August 17, 2024 1:58pm Start: 04-01-2022 End: 05-23-2022 artery cleanse Discontinued 1 {tbl} PO DAILY April 01, 2022 12:00am May 23, 2022 3:05pm Start: 04-01-2022 End: 05-23-2022 take 1 tablet by mouth once daily artery cleanse Discontinued 1 TABLET PO DAILY March 31, 2022 11:00pm May 23, 2022 2:05pm Start: 04-01-2022 End: 05-23-2022 take 1 tablet by mouth once daily artery cleanse Discontinued 1 TABLET PO DAILY April 01, 2022 12:00am May 23, 2022 3:05pm Start: 04-01-2022 take 1 tablet by lizzie th once daily artery cleanse Active 1 TABLET PO DAILY April 01, 2022 12:00am Start: 04-01-2022 artery cleanse Active PO April 01, 2022 12:00am Arthro Therapy (20 sources) Arthro Therapy I nactive Arthro Therapy A ctive ASA 81mg (20 sources) ASA 81mg Active ascorbic acid 500 mg oral tablet (20 sources) Vitamin C Start: 06-03-2022 End: 07-02-2022 take 3 tablets by mouth once daily Ascorbic Acid (Vitamin C) 500 mg Tablet Discontinued 1500 mg PO DAILY 0 June 03, 2022 1:00am July 02, 2022 12:58pm Start: 07-29-2014 End: 06-03-2022 take 1 tablet by mouth once daily Ascorbic Acid (Vitamin C) 500 MG tablet Discontinued 500 mg PO DAILY July 29, 2014 1:00am June 03, 2022 8:09pm Start: 07-29-2014 End: 08-17-2024 take 1 tablet by mouth twice daily Ascorbic Acid (Vitamin C) 500 mg tablet Discontinued 500 mg PO TWICE A DAY July 02, 2022 12:58pm August 17, 2024 1:58pm Start: 07-29-2014 End: 07-02-2022 take 1500 mg by mouth once daily Ascorbic Acid (Vitamin C) Discontinued 1500 MG PO DAILY 0 June 03, 2022 1:00am July 02, 2022 12:58pm Vitamin C Inacti ve Vitamin C Active aspirin 81 mg chewable tablet (20 sources) Platelet Aggregation Inhibitor, Nonsteroidal Anti-inflammatory Drug Start: 05-09-2017 ASPIRIN 81 MG TAB S 1 tablet every other day ASPIRIN [id number] Michael Michel MD Start: 07-29-2014 End: 11-20-2023 Aspirin 81 mg tablet,chewabl e Discontinued 81 mg PO [facility] March 03, 2023 1:40pm November 20, 2023 3:34pm Start: 07-29-2014 End: 06-26-2018 atorvastatin 20 mg oral tablet (20 sources) HMG-CoA Reductase Inhibitor Start: 05-07-2023 End: 03-17-2024 take 1 tablet by mouth at bedtime Atorvastatin 20 mg tablet Discontinued 20 mg PO AT BEDTIME December 19, 2023 11:06am March 17, 2024 12:58pm Start: 04-08-2023 End: 05-07-2023 take 1 tablet by mouth at bedtime Atorvastatin 40 mg tablet Discontinued 40 mg PO AT BEDTIME April 08, 2023 12:00am May 07, 2023 5:20pm Start: 05-09-2017 ATORVASTATIN C ALCIUM 10 MG TABS daily ATORVASTATIN CALCIUM [id number] Michael Michel MD azithromycin 250 mg oral tablet (4 sources) Macrolide Antimicrobial Start: 01-31-2023 Zithromax 250 mg oral tablet 2 (two) tablet today then 1 qd fo 4 days for 0 days Quantity: 6 {Tablet} Refills: 0 Ordered: 31-Jan-2023 Emily Jolly DO Start : 31-Jan-2023 Active Berberine-Herbal Comb No.18 capsule (7 sources) Start: 04-08-2023 End: 08-17-2024 Berberine-Herbal Comb No.18 capsule Discontinued NMA PO April 08, 2023 12:00am August 17, 2024 1:57pm CALCIUM CARB-CHOLECALCIFEROL TABS (2 sources) Start: 05-09-2017 take 1 tablet by mouth every twenty-four hours CALCIUM PLUS VITAMIN D3 TABS CALCIUM CARB-CHOLECALCIFE ROL TABS [id number] Michael Michel MD calcium carbonate 1250 mg / cholecalciferol 200 unt oral tablet (20 sources) Vitamin D Start: 07-29-2014 End: 03-18-2022 Calcium Carbonate-Vitamin D3 1 TABLET tablet Discontinued 1 {tbl} PO DAILY@0800 July 29, 2014 1:00am March 18, 2022 10:26am Start: 07-29-2014 End: 03-18-2022 take 1 tablet by mouth once daily Calcium Carbonate-Vitamin D3 Discontinued 1 TABLET PO DAILY@0800 July 29, 2014 1:00am March 18, 2022 10:26am Start: 07-29-2014 End: 03-18-2022 Calcium- Vitamin D 200U (20 sources) Calcium- Vitamin D 200U 500mg daily Inactive Calcium- Vitamin D 200U 500mg daily Active Calcium- Vitamin D 200U Active cardio cantwell (7 sources) Start: 04-28-2024 End: 08-17-2024 cardio [place]well Discontinued PO April 28, 2024 12:00am August 17, 2024 1:57pm carvedilol 12.5 mg oral tablet (20 sources) alpha-Adrenergi c Yenny, beta-Adrenergic Yenny Start: 04-28-2024 End: 05-03-2024 take 1 tablet by mouth twice daily at mealtime Carvedilol (Coreg) 12.5 mg tablet Discontinued 12.5 mg PO TWICE A DAY 60 April 28, 2024 12:00am May 03, 2024 3:18pm must administer with a meal/food Start: 05-18-2022 End: 07-07-2022 take 1 tablet by mouth twice daily Carvedilol 6.25 mg tablet Discontinued 6.25 mg PO TWICE A DAY May 23, 2022 6:00pm July 07, 2022 2:57pm cephalexin 500 mg oral capsule (20 sources) Cephalosporin Antibacterial Start: 10-10-2021 End: 10-15-2021 take 1 capsule by mouth every twelve hours Cephalexin 500 MG Oral Capsule 1 (one) Capsule q12hrs for 5 days Quantity: 10 {Capsule} Refills: 0 Ordered: 10-Oct-2021 Nicolasa Nazario Start : 10-Oct-2021 End : 15-Oct-2021 Inactive chlorthalidone 15 mg / cloNIDine hydrochloride 0.1 mg oral tablet (20 sources) Thiazide-like Diuretic, Central alpha-2 Adrenergic Agonist clonidine-chlorth alidone 0.1-15 mg oral tablet 0.1mg Greater then 160 for 2 readings withibn a half hour. (0.1-15 mg) Active cimetidine 300 mg oral tablet (20 sources) Histamine-2 Receptor Antagonist Start: 09-15-2020 End: 08-09-2021 take 1 tablet by mouth every other day Cimetidine 300 MG Oral Tablet 1 (one) Tablet qod for 0 days Quantity: 30 {Tablet} Refills: 0 Ordered: 09-Aug-2021 Diane Austin MA Start : 15-Sep-2020 End : 09-Aug-2021 Inactive Start: 07-29-2014 End: 11-09-2021 take 1 tablet by mouth once daily Cimetidine 200 MG tablet Discontinued 300 mg PO DAILY July 29, 2014 1:00am November 09, 2021 10:16am Start: 07-29-2014 End: 11-09-2021 take 300 mg by mouth once daily Cimetidine Discontinue d 300 MG PO DAILY July 29, 2014 1:00am November 09, 2021 10:16am cinnamon bark 500 mg oral capsule (20 sources) Start: 06-11-2022 End: 08-17-2024 take 1 capsule by mouth once daily Cinnamon Bark (Cinnamon) 500 mg capsule Discontinued 500 mg PO DAILY June 11, 2022 1:00am August 17, 2024 1:57pm Start: 04-01-2022 End: 05-23-2022 take 1 capsule by mouth once daily Cinnamon Bark (Cinnamon) 500 mg capsule Discontinued 500 mg PO DAILY April 01, 2022 12:00am May 23, 2022 3:05pm Start: 06-26-2018 End: 09-30-2018 take 1 capsule by mouth once daily Cinnamon Bark 500 mg capsule Discontinued 500 mg PO DAILY June 26, 2018 1:00am September 30, 2018 9:48am Cinnamon bark In active Cinnamon bark Ac tive CINNAMON CAPS (2 sources) Non-Standardized Food Allergenic Extract Start: 05-09-2017 take 1 capsule by mouth every twenty-four hours CINNAMON CAPS CINNAMON CAPS [id number] Michael Michel MD ciprofloxacin 500 mg oral tablet (20 sources) Quinolone Antimicrobial Start: 05-18-2022 End: 05-23-2022 take 1 tablet by mouth twice daily Ciprofloxacin Hcl 500 mg Tablet Discontinued 500 mg PO TWICE A DAY May 18, 2022 12:00am May 23, 2022 3:06pm circu max gold (20 sources) Start: 04-01-2022 End: 05-23-2022 circu max gold Discontinued 1 NMA PO DAILY April 01, 2022 12:00am May 23, 2022 3:05pm Start: 04-01-2022 End: 05-23-2022 take 1 dose by mouth once daily circu max gold Discontinued 1 DOSE PO DAILY March 31, 2022 11:00pm May 23, 2022 2:05pm Start: 04-01-2022 End: 05-23-2022 take 1 dose by mouth once daily circu max gold Discontinued 1 DOSE PO DAILY April 01, 2022 12:00am May 23, 2022 3:05pm Start: 04-01-2022 take 1 dose by mouth once daily circu max gold Active 1 DOSE PO DAILY April 01, 2022 12:00am Start: 04-01-2022 circu max gold Active PO April 01, 2022 12:00am circu max gold A ctive circu max gold powder (7 sources) Start: 11-20-2023 End: 08-17-2024 circu max gold powder Discontinued 1 tbsp PO DAILY November 20, 2023 12:00am August 17, 2024 1:57pm Mix with water cloNIDine hydrochloride 0.1 mg oral tablet (20 sources) Central alpha-2 Adrenergic Agonist Start: 11-21-2023 End: 03-17-2024 Clonidine Hcl 0.1 mg tablet Discontinued 0.1 mg PO .COMPLEX November 21, 2023 11:05am March 17, 2024 1:01pm 0.1 mg orally Pt is to decrease to once a day for 1 week, then every other day for 1 week, then STOP; Start: 07-08-2023 End: 11-21-2023 take 1 tablet by mouth twice daily Clonidine Hcl 0.1 mg tablet Discontinued 0.1 mg PO TWICE A DAY October 16, 2023 10:00am November 21, 2023 11:06am Start: 03-03-2023 End: 07-08-2023 Clonidine (Emfebouc-Ufb-7) 0 .1 mg/24 hr patch weekly Discontinued 1 NMA TD EVERY WEEK March 03, 2023 12:00am July 08, 2023 12:09pm Start: 03-03-2023 End: 07-08-2023 Clonidine (Nmacqocv-Vir-3) 0 .1 mg/24 hr patch weekly Discontinued 1 PATCH TD EVERY WEEK March 03, 2023 12:00am July 08, 2023 12:09pm Start: 09-16-2022 take 1 tablet by lizzie th once daily at bedtime cloNIDine HCL 0.1 mg oral tablet 1 (one) Tablet qhs for 0 days Quantity: 30 {Tablet} Refills: 4 Ordered: 16-Sep-2022 Katharina Marion CMA Start : 16-Sep-2022 Active Start: 09-04-2022 End: 03-03-2023 Clonidine Hcl 0.1 mg tablet Discontinued 0.1 mg PO DAILY as needed for SBP>160 x 2 readings 30 min apart September 04, 2022 4:14pm March 03, 2023 2:12pm 0.1 mg po daily take 1/2 if blood pressure is over 180 then wait 2 hrs if still high take another 1/2 tab. Start: 07-17-2022 End: 09-04-2022 Clonidine Hcl 0.1 mg tablet Discontinued 0.1 mg PO DAILY as needed for SBP>160 x 2 readings 30 min apart July 17, 2022 1:53pm September 04, 2022 4:15pm do not use more than twice daily Start: 05-10-2022 End: 06-10-2022 take 1 tablet by mouth at bedtime Clonidine Hcl 0.1 mg tablet Discontinued 0.1 mg PO AT BEDTIME May 15, 2022 12:00am June 03, 2022 8:10pm Start: 09-30-2018 End: 05-22-2020 Clonidine Hcl 0.1 MG tablet Discontinued 0.1 mg PO EVERY 6 HOURS NEEDED as needed for Systolic BP > 160 September 30, 2018 12:00am May 22, 2020 2:57pm Start: 09-30-2018 End: 05-22-2020 take 0.1 mg by mouth every six hours as needed Clonidine Hcl Discontinued 0.1 MG PO EVERY 6 HOURS NEEDED September 30, 2018 12:00am May 22, 2020 2:57pm Start: 09-30-2018 End: 05-22-2020 Colloidal Silver (20 sources) Start: 03-17-2024 End: 08-17-2024 take 1 [tsp_us] by mouth once daily Colloidal Silver Discontinued 1 tsp PO DAILY March 17, 2024 12:59pm August 17, 2024 1:57pm Start: 06-11-2022 End: 03-17-2024 take 1 [tsp_us] by mouth once daily Colloidal Silver Discontinued 2 tsp PO DAILY June 11, 2022 1:00am March 17, 2024 1:03pm Start: 06-11-2022 take 1 [tsp_us] by m outh once daily Colloidal Silver Active 2 tsp PO DAILY June 11, 2022 1:00am Start: 06-11-2022 take 1 [tsp_us] by m outh once daily Colloidal Silver Active 2 tsp PO DAILY June 11, 2022 12:00am Start: 06-11-2022 take 1 [tsp_us] by m outh once daily Colloidal Silver Active 1 tsp PO DAILY June 11, 2022 12:00am Start: 06-11-2022 Colloidal Silv er Active PO DAILY June 11, 2022 12:00am COMPOUNDED PRESCRIPTION ROSANGELA RY CLEANSE (20 sources) COMPOUNDED PRESC RIPTION ARTERY CLEANSE Inactive COMPOUNDED PRESC RIPTION ARTERY CLEANSE Active COMPOUNDED PRESCRIPTION CARD IO [facility] (20 sources) COMPOUNDED PRESC RIPTION CARDIO [facility] Inactive COMPOUNDED PRESC RIPTION CARDIO [facility] Active Curcumin-Phosphatidylcholine 500 mg capsule (7 sources) Start: 04-08-2023 End: 08-17-2024 Curcumin-Phosphatidylcholine 500 mg capsule Discontinued mg PO April 08, 2023 12:00am August 17, 2024 1:57pm cyclobenzaprine hydrochlorid e 10 mg oral tablet (20 sources) Muscle Relaxant Start: 05-12-2020 End: 11-09-2021 take 5 mg by mouth three times daily as needed for muscle spasms Cyclobenzaprine 10 MG tablet Discontinued 5 mg PO THREE TIMES A DAY as needed for Muscle Spasm May 12, 2020 12:00am November 09, 2021 10:16am Start: 05-12-2020 End: 11-09-2021 take 5 mg by mouth three times daily Cyclobenzaprine Discontinued 5 MG PO THREE TIMES A DAY May 12, 2020 12:00am November 09, 2021 10:16am Start: 05-12-2020 End: 11-09-2021 take 0.5 tablet by mouth three times daily as needed Cyclobenzaprine HCl 10 MG Oral Tablet 1/2 Tablet three times daily as needed for 0 days Quantity: 30 {Tablet} Refills: 0 Ordered: 04-Apr-2021 Nelda Mallory LPN Start : 15-Sep-2020 End : 04-Apr-2021 Inactive Comments: Medication taken as needed. Comment on above: Medication taken as needed. dextromethorphan hydrobromide 2 mg/ml / guaiFENesin 20 mg/ml oral solution (20 sources) Uncompetitive R-kqmtiz-T-aspartate Receptor Antagonist, Sigma-1 Agonist Start: 10-01-19 End: 05-22-20 take 1 mL by mouth every six hours as needed for cough Dextromethorphan-Gu aifenesin 10 ML syrup Discontinued 5 mL PO EVERY 6 HOURS NEEDED as needed for COUGH September 30, 2018 12:00am May 22, 2020 2:56pm Start: 09-30-2018 End: 05-22-2020 take 1 mL by mouth every six hours as needed Dextromethorphan-Guaifenesin Discontinue d 5 ML PO EVERY 6 HOURS NEEDED September 30, 2018 12:00am May 22, 2020 2:56pm Start: 09-30-2018 End: 05-22-2020 doxazosin 2 mg oral tablet (20 sources) alpha-Adrenergic Yenny Start: 07-10-2022 End: 07-25-2022 take 1 tablet by mouth once daily Doxazosin (Cardura) 2 mg tablet Discontinued 2 mg PO DAILY July 14, 2022 2:43am July 17, 2022 1:50pm famotidine 20 mg oral tablet (20 sources) Histamine-2 Receptor Antagonist Start: 06-07-2022 End: 09-04-2022 take 1 tablet by mouth once daily Famotidine (Pepcid) 20 mg Tablet Discontinued 20 mg PO DAILY July 14, 2022 1:00am September 04, 2022 4:12pm gabapentin 100 mg oral capsule (7 sources) Anti-epileptic Agent Start: 11-20-2023 End: 03-17-2024 take 1 capsule by mouth three times daily Gabapentin 100 mg capsule Discontinued 100 mg PO THREE TIMES A DAY November 20, 2023 12:00am March 17, 2024 12:58pm Grape Seed Extract (18 sources) Start: 03-03-2023 End: 08-17-2024 take 1 capsule by mouth once at mealtime Grape Seed Extract 50 mg capsule Discontinued 50 mg PO ONCE March 03, 2023 12:00am August 17, 2024 1:57pm give with food (meal/snack) Start: 03-03-2023 take 50 mg by mouth once at mealtime Grape Seed Extract Active 50 MG PO ONCE March 02, 2023 11:00pm give with food (meal/snack) Start: 03-03-2023 take 50 mg by mouth once at mealtime Grape Seed Extract Active 50 MG PO ONCE March 03, 2023 12:00am give with food (meal/snack) 12 hr guaiFENesin 1200 mg extended release oral tablet (20 sources) Start: 09-30-2018 End: 05-22-2020 take 1 tablet by mouth twice daily Guaifenesin 1,200 MG tablet Discontinued 1200 mg PO TWICE A DAY September 30, 2018 12:00am May 22, 2020 2:56pm hydrALAZINE hydrochloride 25 mg oral tablet (20 sources) Arteriolar Vasodilator Start: 10-16-2023 End: 10-16-2023 take 1 mg by mouth three times daily Hydralazine 25 mg tablet Discontinued mg PO THREE TIMES A DAY October 16, 2023 9:59am October 16, 2023 10:01am Start: 10-16-2023 End: 10-16-2023 take 1 mg by mouth three times daily Hydralazine Discontinued MG PO THREE TIMES A DAY October 16, 2023 9:59am October 16, 2023 10:01am Start: 06-24-2022 End: 07-10-2022 take 1 tablet by mouth three times daily hydrALAZINE 100 mg oral tablet 1 (one) Tablet three times daily for 90 days Quantity: 270 {Tablet} Refills: 3 Ordered: 10-Jul-2022 Alondra Stapleton CMA Start : 24-Jun-2022 End : 10-Jul-2022 Inactive Start: 05-23-2022 End: 07-07-2022 Hydralazine 50 mg tablet Discontinued 100 mg PO THREE TIMES A DAY May 23, 2022 6:00pm July 07, 2022 2:58pm Hold for SBP less than 130 mmHg Start: 05-18-2022 End: 05-23-2022 take 2 tablets by mouth three times daily Hydralazine 50 mg Tablet Discontinued 100 mg PO THREE TIMES A DAY May 18, 2022 12:00am May 23, 2022 3:10pm Start: 05-18-2022 End: 07-07-2022 Start: 05-18-2022 End: 07-07-2022 Hydralazine Discontinued 100 MG PO THREE TIMES A DAY May 23, 2022 6:00pm July 07, 2022 2:58pm Hold for SBP less than 130 mmHg Start: 05-10-2022 take 1 tablet by lizzie th three times daily hydrALAZINE HCl 100 MG Oral Tablet 1 (one) Tablet three times daily for 0 days Quantity: 30 {Tablet} Refills: 3 Ordered: 10-May-2022 Alondra Stapleton CMA Start : 10-May-2022 Active Start: 05-10-2022 hydrALAZINE HC l 50 MG Oral Tablet 1 (one) Tablet daily take another half as needed for high bp for 0 days Quantity: 30 {Tablet} Refills: 3 Ordered: 10-May-2022 Martina Lal DO, DO, Kathleen Start : 10-May-2022 Active Comments: Medication taken as needed. Start: 04-19-2022 take 1 tablet by lizzie th once daily hydrALAZINE HCl 50 MG Oral Tablet 1 (one) Tablet qd for 0 days Quantity: 30 {Tablet} Refills: 3 Ordered: 19-Apr-2022 Lukasz PORTILLOMartina LukaszMartina luis DO Start : 19-Apr-2022 Active Start: 03-18-2022 End: 05-18-2022 take 2 tablets by mouth at bedtime Hydralazine 25 mg tablet Discontinued 50 mg PO AT BEDTIME March 18, 2022 10:24am May 18, 2022 10:35am Start: 02-11-2022 take 1 tablet by lizzie th once daily hydrALAZINE HCl 50 MG Oral Tablet 1 (one) Tablet qd for 0 days Quantity: 30 {Tablet} Refills: 3 Ordered: 11-Feb-2022 Emily Jolly DO Start : 11-Feb-2022 Active Start: 11-09-2021 End: 03-18-2022 take 1 tablet by mouth twice daily Hydralazine 25 mg tablet Discontinued 25 mg PO TWICE A DAY November 09, 2021 12:00am March 18, 2022 10:27am Start: 11-09-2021 End: 05-18-2022 take 50 mg by mouth at bedtime Hydralazine Discontinue d 50 MG PO AT BEDTIME March 18, 2022 10:24am May 18, 2022 10:35am Start: 11-09-2021 End: 05-18-2022 Start: 09-26-2021 take 1 tablet by lizzie th once daily hydrALAZINE HCl 50 MG Oral Tablet 1 (one) Tablet qd for 0 days Quantity: 30 {Tablet} Refills: 3 Ordered: 26-Sep-2021 Lukasz Martina PORTILLO LukaszMartina luis DO Start : 26-Sep-2021 Active Start: 08-09-2021 take 1 tablet by lizzie th once daily hydrALAZINE HCl 25 MG Oral Tablet 1 (one) Tablet qd for 0 days Quantity: 30 {Tablet} Refills: 3 Ordered: 09-Aug-2021 Keri Johnson CMA Start : 09-Aug-2021 Active Comment on above: Medication taken as needed. hydroCHLOROthiazide 12.5 mg oral tablet (20 sources) Thiazide Diuretic Start: 2021 End: 2021 take 1 tablet by mouth once daily Hydrochlorothiazide 12.5 mg tablet Discontinued 12.5 mg PO DAILY May 18, 2022 12:00am May 23, 2022 3:11pm On Hold: As patient has acute kidney injury Start: 05-09-2017 HYDROCHLOROTHI AZIDE 12.5 MG TABS daily HYDROCHLOROTHIAZIDE [id number] Michael Michel MD Start: 07-29-2014 End: 07-31-2014 take 1 tablet by mouth once daily Hydrochlorothiazide 25 MG tablet Discontinued 25 mg PO DAILY July 29, 2014 1:00am July 31, 2014 1:58pm 3 ml insulin lispro 100 unt/ml pen injector (20 sources) Insulin Analog Start: 05-23-2022 End: 06-03-2022 Insulin Lispro (Humalog Kwikpen Insulin) 100 unit/mL insulin pen Discontinued 0 U SC THREE TIMES DAILY BEFORE MEALS May 23, 2022 6:00pm June 03, 2022 8:10pm Please contact the information source for Protocol details. Start: 05-23-2022 End: 06-03-2022 Insulin Lispro (Humalog Kwik pen Insulin) 100 unit/mL insulin pen Discontinued 0 unit SC THREE TIMES DAILY BEFORE MEALS May 23, 2022 6:00pm June 03, 2022 8:10pm Start: 05-23-2022 End: 06-03-2022 Start: 09-30-2018 End: 05-22-2020 Insulin Lispro 100 UNIT/ML i nsulin pen Discontinued 0 U SQ BEFORE MEALS AND AT BEDTIME September 30, 2018 12:00am May 22, 2020 2:56pm Please contact the information source for Protocol details. Start: 09-30-2018 End: 05-22-2020 Insulin Lispro Discontinued 0 UNIT SQ BEFORE MEALS AND AT BEDTIME September 30, 2018 12:00am May 22, 2020 2:56pm lidocaine 0.05 mg/mg medicated patch (20 sources) Antiarrhythmic, Amide Local Anesthetic Start: 05-12-2020 End: 11-09-2021 Lidocaine 1 PATCH patch Discontinued 1 NMA TOPICAL DAILY May 12, 2020 12:00am November 09, 2021 10:16am Start: 05-12-2020 End: 11-09-2021 apply 1 dose topically once daily Lidocaine Discontinued 1 PATCH TOPICAL DAILY May 12, 2020 12:00am November 09, 2021 10:16am Start: 05-12-2020 End: 11-09-2021 lisinopril 30 mg oral tablet (20 sources) Angiotensin Converting Enzyme Inhibitor Start: 02-28-2023 End: 07-08-2023 take 1 tablet by mouth once daily Lisinopril 30 mg tablet Discontinued 30 mg PO DAILY February 28, 2023 12:00am July 08, 2023 12:03pm Start: 11-29-2022 take 1 tablet by lizzie th once daily lisinopriL 30 mg oral tablet 1 (one) Tablet qd for 30 days Quantity: 30 {Tablet} Refills: 3 Ordered: 29-Nov-2022 Martina Lal DO, DO, Kathleen Start : 29-Nov-2022 Active Start: 08-29-2022 take 1 tablet by lizzie th once daily lisinopriL 30 mg oral tablet 1 (one) Tablet qd for 30 days Quantity: 30 {Tablet} Refills: 3 Ordered: 29-Aug-2022 Martina Lal DO, DO, Kathleen Start : 29-Aug-2022 Active Start: 07-25-2022 take 1 tablet by lizzie th once daily lisinopriL 30 mg oral tablet 1 (one) Tablet qd for 30 days Quantity: 30 {Tablet} Refills: 3 Ordered: 25-Jul-2022 Martina Lal DO, DO, Kathleen Start : 25-Jul-2022 Active Start: 07-17-2022 End: 02-28-2023 Lisinopril 20 mg Tablet Disc ontinued 30 mg PO DAILY 45 July 17, 2022 1:00am February 28, 2023 6:08pm Start: 07-02-2022 End: 02-28-2023 Start: 06-21-2022 End: 07-17-2022 take 1 tablet by mouth once daily Lisinopril 20 mg tablet Discontinued 20 mg PO DAILY July 02, 2022 1:00am July 17, 2022 1:51pm Start: 06-03-2022 End: 06-18-2022 take 1 tablet by mouth once daily Lisinopril 20 mg Tablet Discontinued 20 mg PO DAILY June 03, 2022 1:00am June 18, 2022 4:15pm Start: 06-28-2020 End: 11-09-2021 Lisinopril 20 mg tablet Disc ontinued 20 mg PO June 28, 2020 1:00am November 09, 2021 10:19am Start: 06-28-2020 End: 06-03-2022 take 1 tablet by mouth twice daily Lisinopril 20 mg tablet Discontinued 20 mg PO TWICE A DAY November 09, 2021 10:16am June 03, 2022 8:08pm On Hold: Hold until serum creatinine on baseline. Start: 06-28-2020 End: 06-18-2022 Start: 05-22-2020 End: 06-28-2020 take 2 tablets by mouth once daily Lisinopril 10 mg tablet Discontinued 20 mg PO DAILY May 22, 2020 2:53pm June 28, 2020 2:36pm Start: 07-29-2014 End: 06-28-2020 take 1 tablet by mouth once daily Lisinopril 10 MG tablet Discontinued 10 mg PO DAILY July 29, 2014 1:00am May 22, 2020 3:02pm Start: 07-29-2014 End: 06-28-2020 take 20 mg by mouth once daily Lisinopril Discontinued 20 MG PO DAILY May 22, 2020 2:53pm June 28, 2020 2:36pm Comment on above: Mail order. Mail order. Patrick avilae r liver supplement (20 sources) Start: 04-01-2022 End: 04-28-2024 liver supplement Discontinued 1 NMA PO AT BEDTIME April 01, 2022 12:00am April 28, 2024 2:30pm Start: 04-01-2022 take 1 capsule by mo ut at bedtime liver supplement Active 1 CAP PO AT BEDTIME March 31, 2022 11:00pm Start: 04-01-2022 take 1 capsule by mo uth at bedtime liver supplement Active 1 CAP PO AT BEDTIME April 01, 2022 12:00am Start: 04-01-2022 liver suppleme nt Active PO April 01, 2022 12:00am liver support peak brand pure and natural liver function dietary supplement (3 sources) liver support pe ak brand pure and natural liver function dietary supplement Active LORazepam 0.5 mg oral tablet (20 sources) Benzodiazepine Start: 06-12-20 End: 12-03-19 take 1 tablet by mouth once daily as needed for anxiety Lorazepam 0.5 mg tablet Discontinued 0.5 mg PO DAILY as needed for Anxiety July 02, 2022 1:00am December 02, 2022 1:51pm Comment on above: verbally called to suly vasquez 06/12/22thirtyDX: F41.9 Magnesium (20 sources) Magnesium Inacti ve Magnesium Active magnesium hydroxide 80 mg/ml oral suspension (20 sources) Start: 09-30-2018 End: 11-09-2021 take 1 mL by mouth once daily as needed for constipation Magnesium Hydroxide 30 ML suspension Discontinued 30 mL PO DAILY NEEDED as needed for Constipation September 30, 2018 12:00am November 09, 2021 10:16am Start: 09-30-2018 End: 11-09-2021 take 1 mL by mouth once daily as needed Magnesium Hydroxide Discontinued 30 ML PO DAILY NEEDED September 30, 2018 12:00am November 09, 2021 10:16am Start: 09-30-2018 End: 11-09-2021 melatonin 3 mg oral tablet (20 sources) Start: 07-13-2022 End: 03-03-2023 take 1 tablet by mouth at bedtime as needed for sleep Melatonin 3 mg Tablet Discontinued 3 mg PO AT BEDTIME as needed for Sleep July 13, 2022 1:00am March 03, 2023 1:42pm Start: 07-13-2022 Start: 06-04-2022 take 3 mg by mouth at bedtime Melatonin Active 3 MG PO BEDTIME June 04, 2022 12:00am 24 hr metoprolol succinate 50 mg extended release oral tablet (20 sources) beta-Adrenergic Yenny Start: 06-26-2018 End: 05-18-2022 take 2 tablets by mouth twice daily Metoprolol Succinate 50 mg tablet extended release 24 hr Discontinued 25 mg PO TWICE A DAY June 26, 2018 1:00am May 18, 2022 10:35am Start: 06-26-2018 End: 05-18-2022 take 25 mg by mouth twice daily Metoprolol Succinate Discontinued 25 MG PO TWICE A DAY June 26, 2018 1:00am May 18, 2022 10:35am Start: 06-26-2018 End: 06-10-2022 take 0.5 tablet by mouth twice daily Metoprolol Succinate ER 50 MG Oral Tablet Extended Release 24 Hour 1/2 Tablet bid for 0 days Quantity: 60 {Tablet} Refills: 0 Ordered: 10-Jun-2022 Alondra Stapleton CMA Start : 10-May-2022 End : 10-Jun-2022 Inactive Start: 06-26-2018 End: 05-18-2022 take 1 tablet by mouth twice daily Metoprolol Succinate ER 50 MG Oral Tablet Extended Release 24 Hour 1 (one) Tablet bid for 0 days Quantity: 60 {Tablet} Refills: 0 Ordered: 09-Aug-2021 Martina Lal DO, DO, Kathleen Start : 09-Aug-2021 Active Start: 06-26-2018 take 50 mg by mouth once daily Metoprolol Succinate Active 50 MG PO DAILY June 26, 2018 1:00am 24 hr NIFEdipine 90 mg extended release oral tablet (20 sources) Dihydropyridine Calcium Channel Yenny Start: 10-16-2023 End: 10-04-2024 take 1 tablet by mouth once daily in the evening Nifedipine 90 mg tablet extended release Discontinued 90 mg PO EVERY EVENING June 01, 2024 9:50am October 04, 2024 3:53pm Deane-3 (20 sources) Deane-3 Inactive Deane-3 Active Deane-3 Fatty Acids-Fish Oil 1 EACH capsule (7 sources) Start: 07-29-2014 End: 03-03-2023 Deane-3 Fatty Acids-Fish Oil 1 EACH capsule Discontinued 1 NMA PO DAILY July 29, 2014 1:00am March 03, 2023 1:44pm Deane-3 Fatty Acids-Fish Oil 300-1,000 mg capsule (7 sources) Start: 03-03-2023 End: 08-17-2024 Deane-3 Fatty Acids-Fish Oil 300-1,000 mg capsule Discontinued 1 NMA PO DAILY March 03, 2023 1:40pm August 17, 2024 1:57pm ondansetron 4 mg disintegrating oral tablet (20 sources) Serotonin-3 Receptor Antagonist Start: 06-07-2022 End: 01-31-2023 take 1 tablet by mouth every four to six hours as needed ondansetron 4 mg oral Tablet,disintegra ting 1 (one) Tablet 1 tab q4-6 hrs prn for 0 days Quantity: 60 {Tablet} Refills: 3 Ordered: 31-Jan-2023 Emily Jolly DO Start : 07-Jun-2022 End : 31-Jan-2023 Inactive oseltamivir 30 mg oral capsule (20 sources) Neuraminidase Inhibitor Start: 09-30-2018 End: 05-22-2020 take 1 capsule by mouth twice daily Oseltamivir 30 MG capsule Discontinued 30 mg PO TWICE A DAY September 30, 2018 12:00am May 22, 2020 2:57pm pantoprazole 40 mg delayed release oral tablet (20 sources) Proton Pump Inhibitor Start: 07-17-2022 End: 12-02-2022 take 1 tablet by mouth once daily Pantoprazole 40 mg Tablet,Delayed Release (Dr/Ec) Discontinued 40 mg PO DAILY July 17, 2022 1:00am December 02, 2022 1:54pm polyethylene glycol 3350 17215 mg powder for oral solution (20 sources) Osmotic Laxative Start: 07-02-2022 End: 12-02-2022 take 17 g by mouth at bedtime Polyethylene Glycol 3350 17 gram Powder In Packet Discontinued 17 g PO AT BEDTIME July 02, 2022 1:00am December 02, 2022 1:53pm Start: 07-02-2022 potassium chloride 20 meq extended release oral tablet (20 sources) Start: 07-07-2022 End: 12-02-2022 take 1 tablet by mouth once daily Potassium Chloride 20 mEq tablet extended release Discontinued 20 meq PO DAILY July 14, 2022 2:43am December 02, 2022 1:53pm On Hold: Restart on 07/18/2022 Start: 10-10-2021 End: 06-10-2022 take 1 capsule by mouth once daily Potassium Chloride ER 10 MEQ Oral Capsule Extended Release 1 (one) Capsule daily when taking lasix for 0 days Quantity: 30 {Capsule} Refills: 1 Ordered: 10-Jun-2022 Alondra Stapleton CMA Start : 10-Oct-2021 End : 10-Jun-2022 Inactive potassium chlori de 20 mEq oral packet Once a day in the morning. (20 mEq) Active pravastatin sodium 10 mg oral tablet (20 sources) HMG-CoA Reductase Inhibitor Start: 07-29-2014 End: 06-26-2018 take 1 tablet by mouth once daily Pravastatin 10 MG tablet Discontinued 10 mg PO DAILY July 29, 2014 1:00am June 26, 2018 2:13pm predniSONE 20 mg oral tablet (20 sources) Start: 09-30-2018 End: 05-22-2020 take 1 tablet by mouth once daily Prednisone 20 MG tablet Discontinued 20 mg PO DAILY@0800 5 September 30, 2018 12:00am May 22, 2020 2:57pm Start: 08-27-2017 End: 06-26-2018 take 4 tablets by mouth once daily in the morning Prednisone 10 MG tablet Discontinued 10 mg PO TWICE A DAY 6 August 27, 2017 1:00am June 26, 2018 2:13pm 40 mg daily @ 8:00 AM for 3 days 30 mg daily @ 8:00 AM for 3 days 20 mg daily @ 8:00 AM for 3 days 10 mg daily @ 8:00 AM for 3 days Start: 08-27-2017 End: 06-26-2018 take 40 mg by mouth once daily in the morning Prednisone Discontinued 10 MG PO TWICE A DAY 6 August 27, 2017 1:00am June 26, 2018 2:13pm 40 mg daily @ 8:00 AM for 3 days 30 mg daily @ 8:00 AM for 3 days 20 mg daily @ 8:00 AM for 3 days 10 mg daily @ 8:00 AM for 3 days Silver (20 sources) Silver Inactive Silver Active silver (20 sources) Start: 04-01-2022 End: 05-23-2022 take 1 [tsp_us] by mouth once daily silver Discontinued 2 tsp PO DAILY March 31, 2022 11:00pm May 23, 2022 2:05pm Start: 04-01-2022 End: 05-23-2022 take 1 [tsp_us] by mouth once daily silver Discontinued 2 tsp PO DAILY April 01, 2022 12:00am May 23, 2022 3:05pm Start: 04-01-2022 take 1 [tsp_us] by m out once daily silver Active 2 tsp PO DAILY April 01, 2022 12:00am Start: 04-01-2022 silver Active PO April 01, 2022 12:00am traMADol hydrochloride 50 mg oral tablet (20 sources) Opioid Agonist Start: 06-04-2022 End: 06-18-2022 take 1 tablet by mouth every six hours as needed Tramadol 50 mg tablet Discontinued 50 mg PO EVERY 6 HOURS as needed June 04, 2022 1:00am June 18, 2022 4:06pm Zinc (20 sources) Zinc Inactive Zinc Active Problems Active Problems Problem Classification Problem Date Documented Date Episodic/Chronic Abdominal hernia (20 sources) Incisional hernia; Translations: [Incisional hernia with obstruction, without gangrene] Episodic Abdominal pain (20 sources) Abdominal pain; Translations: [Abdominal pain] 02-18-2022 Episodic Comment on above: RUQ extending to RLQ then into groin Acute and unspecified renal failure (20 sources) Injury of kidney; Translations: [Acute kidney failure, unspecified] Episodic Comment on above: no LYUDMILA on duplex sca n Anxiety disorders (20 sources) Anxiety; Translations: [Anxiety] 06-12-2022 Chronic Cancer of breast (20 sources) Malignant neoplasm of female breast; Translations: [Breast cancer, female] Onset: 2 04-19-2022 Chronic Comment on above: stabe 2A - referred to XRT Cardiac dysrhythmias (20 sources) Bradycardia; Translations: [Bradycardia, unspecified] Episodic Comment on above: cardio orderd 24hr h olter and it is set up for jul 29 2022 Cataract (20 sources) Other secondary cataract, right eye; Translations: [After-cataract of right eye] 09-15-2020 Chronic Chronic kidney disease (20 sources) Chronic kidney disease; Translations: [Chronic kidney disease stage 3] 09-15-2020 Chronic Comment on above: GFR 50, GFR 50, repeat May 21 2021 up /down based on di uresiss up /down based on di uresiss-- up again right now - so decreased lasix lil bit Chronic kidney disease (20 sources) Chronic kidney disease; Translations: [Chronic kidney disease, stage 3b] Onset: 4 Complications of surgical procedures or medical care (20 sources) Postoperative seroma; Translations: [Postoperative seroma] Episodic Congestive heart failure; nonhypertensive (20 sources) Congestive heart failure; Translations: [Heart failure, unspecified] Chronic Comment on above: at todays ov 08-28-22 willl have her do 20mg daily instead of alt 20/40 and see how tolerates Diabetes mellitus with complications (1 source) Type 2 diabetes mellitus with diabetic chronic kidney disease; Translations: [Type 2 diabetes mellitus with diabetic chronic kidney disease] Onset: 5 Chronic Diabetes mellitus without complication (20 sources) Type 2 diabetes mellitus; Translations: [Type 2 diabetes mellitus] 09-15-2020 Chronic Comment on above: controlled on Starli x Diabetes mellitus without complication (20 sources) Diabetes mellitus without complication Diseases of white blood cells (20 sources) Leukocytosis; Translations: [Elevated white blood cell count, unspecified] Chronic Disorders of lipid metabolism (20 sources) Hyperlipidemia; Translations: [Hypercholesterolemia] Onset: 7 05-09-2017 Chronic Comment on above: Gfr September 09-28-19 Diverticulosis and diverticulitis (20 sources) Diverticulosis of colon; Translations: [Diverticulosis of colon] 09-15-2020 Chronic Esophageal disorders (20 sources) Gastroesophageal reflux disease; Translations: [GERD (gastroesophageal reflux disease)] 09-15-2020 Chronic Comment on above: uses OTc med prn will try PPI qod to see if tolerates Essential hypertension (20 sources) Hypertensive disorder; Translations: [Hypertension] Onset: 7 05-09-2017 Chronic Comment on above: controlled resistant to control -- ? do 2nd anita w/u, r/o abdi , carotid update- Fever of unknown origin (1 source) Fever, unspecified; Translations: [Fever, unspecified] Onset: 5 Episodic Fluid and electrolyte disorders (20 sources) Hyperkalemia; Translations: [Serum potassium elevated] Resolved: 2 12-19-2021 Episodic Comment on above: off K+ until nextt b lood draw to follow 09/12/22- then can have instrutions if she should resume Genitourinary symptoms and ill-defined conditions (20 sources) Abnormal urinalysis; Translations: [Unspecified abnormal findings in urine] Episodic Glaucoma (20 sources) Glaucoma; Translations: [Glaucoma] 09-15-2020 Chronic Hypertension with complications and secondary hypertension (20 sources) Hypertensive urgency ; Translations: [Hypertensive urgency] Chronic Immunizations and screening for infectious disease (20 sources) Needs influenza immunization; Translations: [Need for prophylactic vaccination and inoculation against influenza (Renamed from Need for immunization against influenza)] 05-28-2021 Episodic Malaise and fatigue (20 sources) Asthenia; Translations: [Physical debility] 08-10-2021 Episodic Comment on above: suggested PT L shoulder pain ambrose howard PT, send to ortho who rec surgery or pain managment, pt chose pain managment Mycoses (20 sources) Onychomycosis due to dermatophyte ; Translations: [Tinea unguium] Episodic Nausea and vomiting (20 sources) Nausea; Translations: [Nausea] Episodic Nonmalignant breast conditions (20 sources) Cellulitis of breast; Translations: [Mastitis without abscess] Episodic Nonspecific chest pain (10 sources) Chest pain; Translations: [Chest pain, unspecified] Onset: 5 12-16-2024 Episodic Nutritional deficiencies (20 sources) Vitamin D deficiency; Translations: [Vitamin D deficiency] Onset: 4 09-15-2020 Chronic Occlusion or stenosis of precerebral arteries (20 sources) Carotid artery stenosis; Translations: [Left carotid artery stenosis] Onset: 7 05-09-2017 Chronic Comment on above: gets checked yearly Osteoarthritis (1 source) Bilateral primary osteoarthritis of hip; Translations: [Bilateral primary osteoarthritis of hip] Onset: 4 Chronic Other aftercare (20 sources) Patient encounter status; Translations: [Therapeutic drug monitoring] 10-17-2021 Episodic Other and unspecified benign neoplasm (20 sources) Benign neoplasm of colon; Translations: [Benign neoplasm of colon] 09-15-2020 Episodic Other bone disease and musculoskeletal deformities (20 sources) Osteopenia; Translations: [Osteopenia] 09-15-2020 Episodic Comment on above: last bone density Other circulatory disease (20 sources) Disorder of carotid artery; Translations: [Carotid disease, bilateral] 09-15-2020 Chronic Comment on above: declines follow up d iscussed risk discussed Other circulatory disease (20 sources) Labile blood pressure; Translations: [Other specified symptoms and signs involving the circulatory and respiratory systems] 07-15-2022 Episodic Other circulatory disease (8 sources) Other specified symptoms and signs involving the circulatory and respiratory systems; Translations: [Elevated blood pressure reading without diagnosis of hypertension] Episodic Other connective tissue disease (20 sources) Spasm; Translations: [Muscle spasm] 09-15-2020 Episodic Other connective tissue disease (20 sources) Swelling of lower limb; Translations: [Leg swelling] 10-17-2021 Episodic Comment on above: Wts was 236, after l asix 230. 20mg x 4 days. Other connective tissue disease (20 sources) Pain in toe; Translations: [Pain in left toe(s)] 06-12-2022 Episodic Other connective tissue disease (11 sources) Swelling of bilateral lower limbs; Translations: [Other specified soft tissue disorders] 10-23-2023 Episodic Other endocrine disorders (20 sources) Primary hyperparathyroidism; Translations: [Primary hyperparathyroidism] 10-17-2021 Chronic Comment on above: pth - 85vit D normal - Ca++ is on hi normal side now =-- will repeat PTH in 8weeks and if still elev will do parathryiod scan Other endocrine disorders (20 sources) Adrenal mass; Translations: [Adrenal mass] 02-27-2022 Chronic Comment on above: cat scan 07-11 stabl e no chg recommend fu imaging 3-4months with triple phase cat scan or mri CT February 2022 Other endocrine disorders (20 sources) Other specified disorders of adrenal gland; Translations: [Other specified disorders of adrenal glands] Chronic Other eye disorders (20 sources) Ptosis of eyelid; Translations: [Ptosis of eyelid, bilateral] 09-15-2020 Episodic Other gastrointestinal disorders (20 sources) Irritable bowel syndrome with diarrhea; Translations: [Irritable bowel syndrome with diarrhea] 12-31-2021 Chronic Comment on above: talked about immod p rn - stress management, avoid-food triggers scope done saw GI - will req letter Other gastrointestinal disorders (20 sources) Right upper quadrant abdominal mass; Translations: [Abdominal mass, RUQ (right upper quadrant)] 02-18-2022 Episodic Other gastrointestinal disorders (1 source) Adrenal mass Episodic Other liver diseases (20 sources) Large liver; Translations: [Hepatomegaly] 02-18-2022 Episodic Other liver diseases (20 sources) Cardiac enzymes abnormal; Translations: [Abnormal levels of other serum enzymes] 07-14-2022 Episodic Other liver diseases (1 source) Abnormal levels of other serum enzymes; Translations: [Other nonspecific abnormal serum enzyme levels] Episodic Other lower respiratory disease (20 sources) Snoring; Translations: [Snoring] 09-15-2020 Episodic Other lower respiratory disease (20 sources) Cough; Translations: [Cough] 09-30-2018 Episodic Other lower respiratory disease (20 sources) Hypoxia; Translations: [Hypoxemia] 05-12-2020 Episodic Other lower respiratory disease (20 sources) Hypoxemia; Translations: [Hypoxemia] 05-26-2022 Episodic Other lower respiratory disease (11 sources) Dyspnea; Translations: [Shortness of breath] 10-23-2023 Episodic Other nervous system disorders (20 sources) Jolley's palsy; 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 Rendon Other nervous system disorders (20 sources) Poor balance; Translations: [Poor balance] 12-13-2020 Episodic Other nervous system disorders (20 sources) Tremor; Translations: [Tremor, unspecified] 07-15-2022 Episodic Other nervous system disorders (2 sources) Tremor, unspecified; Translations: [Abnormal involuntary movements] Episodic Other non-traumatic joint disorders (20 sources) Shoulder pain; Translations: [Shoulder pain, left] 07-10-2021 Episodic Comment on above: enc to call sherrie Other non-traumatic joint disorders (20 sources) Pain in left shoulder; Translations: [Shoulder pain, left] 08-29-2022 Episodic Comment on above: enc to call sherrie Other nutritional; endocrine; and metabolic disorders (20 sources) Body mass index 40+ - severely obese; Translations: [BMI 40.0-44.9, adult] Resolved: 3 09-15-2020 Chronic Other nutritional; endocrine; and metabolic disorders (20 sources) Hypercalcemia; Translations: [Serum calcium elevated] Resolved: 2 10-17-2021 Chronic Comment on above: normalized Other nutritional; endocrine; and metabolic disorders (20 sources) Morbid obesity; Translations: [Morbid obesity] 12-31-2021 Chronic Other nutritional; endocrine; and metabolic disorders (12 sources) Body mass index (BMI) 40.0-44.9, adult; Translations: [Body Mass Index 40.0-44.9, adult] Chronic Other nutritional; endocrine; and metabolic disorders (7 sources) Hypercalcemia; Translations: [Hypercalcemia] Chronic Other nutritional; endocrine; and metabolic disorders (16 sources) Obesity; Translations: [Obesity, unspecified] 06-03-2023 Chronic Other nutritional; endocrine; and metabolic disorders (5 sources) Obesity, unspecified; Translations: [Obesity, unspecified] 06-03-2023 Chronic Other nutritional; endocrine; and metabolic disorders (20 sources) Adult failure to thrive syndrome; Translations: [Adult failure to thrive] 07-25-2022 Episodic Other nutritional; endocrine; and metabolic disorders (6 sources) Adult failure to thrive; Translations: [Adult failure to thrive] Episodic Other screening for suspected conditions (not mental disorders or infectious disease) (20 sources) Mammography abnormal; Translations: [Abnormal mammogram] Onset: 09-15-2020 Episodic Comment on above: declines follow up d iscussed risks and benefits. Other skin disorders (7 sources) Eruption; Translations: [Rash and other nonspecific skin eruption] 04-28-2024 Episodic Other upper respiratory disease (20 sources) Change in voice; Translations: [Hoarseness or changing voice] 12-31-2021 Episodic Comment on above: side effect of stain ??-- vs tsh?-- will stop statin for a month and if no improveemnt in voice will do labs then Other upper respiratory infections (8 sources) Upper respiratory infection; Translations: [URI (upper respiratory infection)] 01-31-2023 Episodic Pancreatic disorders (not diabetes) (20 sources) Cyst of pancreas; Translations: [Cyst of pancreas] 09-15-2020 Episodic Comment on above: MRI in 2019 declines follow up Residual codes; unclassified (20 sources) Obstructive sleep apnea syndrome; Translations: [Obstructive sleep apnea (adult) (pediatric)] 05-09-2022 Chronic Comment on above: instrected her to eliana Mcdaniels regarding letter that wore cpap 30days etc for medicare Residual codes; unclassified (20 sources) Obstructive sleep apnea (adult) (pediatric); Translations: [Obstructive sleep apnea (adult)(pediatric)] Chronic Residual codes; unclassified (20 sources) Hypoxia; Translations: [Idiopathic sleep related nonobstructive alveolar hypoventilation] 07-15-2022 Chronic Residual codes; unclassified (6 sources) Idiopathic sleep related nonobstructive alveolar hypoventilation; Translations: [Idiopathic sleep related non-obstructive alveolar hypoventilation] Chronic Residual codes; unclassified (20 sources) Non-smoker; Translations: [Nonsmoker] 09-15-2020 Episodic Residual codes; unclassified (20 sources) Edema of lower extremity; Translations: [Lower extremity edema] 09-26-2021 Episodic Comment on above: medication side effe ct vs primary ?-- compression and elevation, stop norvasc and watch -- lose wt -r/o abdi Residual codes; unclassified (20 sources) Generalized aches and pains; Translations: [Pain, unspecified] 09-30-2018 Episodic Residual codes; unclassified (20 sources) Postmenopausal state; Translations: [Postmenopausal] 04-19-2022 Episodic Residual codes; unclassified (8 sources) Edema; Translations: [Edema, unspecified] 12-16-2024 Episodic Respiratory failure; insufficiency; arrest (adult) (20 sources) Acute respiratory failure; Translations: [Acute respiratory failure with hypoxia] Resolved: 3 Episodic Retinal detachments; defects; vascular occlusion; and retinopathy (20 sources) Puckering of macula, bilateral; Translations: [Bilateral epiretinal membrane of eyes] 09-15-2020 Chronic Comment on above: stable left eye sees Dr. Alden bearden Skin and subcutaneous tissue infections (20 sources) Cellulitis; Translations: [Cellulitis] Resolved: 2 10-17-2021 Episodic Comment on above: cephalexin x 5 days helped but not completely, redness improved, rt foot still hard and full in ankle. Spondylosis; intervertebral disc disorders; other back problems (20 sources) Low back pain; Translations: [Lumbago] 09-15-2020 Episodic Superficial injury; contusion (14 sources) Contusion of right foot; Translations: [Contusion of right foot, initial encounter] 03-20-2024 Episodic Unclassified (20 sources) Hypercholesteremia Unclassified (20 sources) Abnormal mammogram Unclassified (20 sources) Carotid disease, bilateral Unclassified (20 sources) Nonsmoker; Translations: [Non-smoker] 09-15-2020 Unclassified (20 sources) BMI 40.0-44.9, adult Unclassified (20 sources) Ptosis of eyelid, bilateral Unclassified (20 sources) Pseudophakia, both eyes Unclassified (20 sources) Opaque posterior capsule, right Unclassified (20 sources) Macular pucker of both eyes Unclassified (20 sources) Left carotid stenosis Unclassified (20 sources) Diverticulosis of colon Unclassified (20 sources) Jolley palsy Unclassified (20 sources) Muscle spasm Unclassified (20 sources) Unclassified (19 sources) Poor balance Unclassified (20 sources) Shoulder pain, left Unclassified (10 sources) Lower extremity edema Unclassified (8 sources) Therapeutic drug monitoring Unclassified (16 sources) Serum calcium elevated Unclassified (5 sources) Hoarseness or changing voice Unclassified (1 source) Low back pain, unspecified; Translations: [Low back pain, unspecified] Onset: Past or Other Problems Problem Classification Problem Date Documented Date Episodic/Chronic Administrative/social admission (8 sources) Counseling, unspecified; Translations: [Counseling NOS] Episodic Cataract (6 sources) Bilateral pseudophakia; Translations: [Pseudophakia, both eyes] 09-15-2020 Diverticulosis and diverticulitis (6 sources) Diverticulosis of colon; Translations: [Diverticulosis of colon] 09-15-2020 Other connective tissue disease (10 sources) Pain in left toe(s); Translations: [Pain in limb] Episodic Other connective tissue disease (10 sources) Pain in right toe(s); Translations: [Pain in limb] Episodic Other injuries and conditions due to external causes (1 source) Unspecified injury of right foot, initial encounter; Translations: [Unspecified injury of right foot, initial encounter] Onset: 04-06-2024 Episodic Other lower respiratory disease (14 sources) Hypoxemia; Translations: [Hypoxemia] Episodic Unclassified (20 sources) Abortions/Miscarriage s; Translations: [Abortions/Miscarriag es] 09-15-2020 Comment on above: 1 MC Unclassified (20 sources) Deliveries (Parity); Translations: [Deliveries (Parity)] 09-15-2020 Comment on above: 3 Unclassified (20 sources) Pregnancies (); Translations: [Pregnancies ()] 09-15-2020 Comment on above: 4 Unclassified (20 sources) Physical debility Unclassified (7 sources) Serum potassium elevated Unclassified (3 sources) Abdominal mass, RUQ (right upper quadrant) Results Test Name Value Interpretation Reference Range Facility Microalb:Creat Ratio,Random URon 06-19-2025 MALB:CREAT 40.5 mg/g CRE Normal [facility] Comment on above: Result Comment: AMENDED REPORT 01/06/25 0800 MALB:CREAT previously reported as: 404.6 mg/g CRE Performed By: #### L 501.4700, L501.9520, L501.0900, L506.1001, L501.2300, L500.4050, L100.0100, L502.0250, L500.4100, L400.2010 ####[facility] [address] [place], [address] Urgent Care Visit Reporton 0 01-01-2025 Urgent Care Visit Report [facility] [address], [address] [place] [address] OFFICE VISIT Date of Service: 01/01/25 MR#: [id number] Acct: [id number] Name: DEBBIE MIRELES Rep #: [id number] : 1935 Provider: PADMINI Lutz Age/Sex: 89/F Location: [facility] Status: Signed Intake Vital Signs 12/24/24 09:29 01/01/25 12:21 Height 5 ft 2 in BP 144/64 H Blood Pressure Location Lt brachial Position Sitting Respiration 17 Pulse 85 Pulse Source NIBP Temp 98.2 F Temp Source Oral Pulse Oximetry (%) 96 Oxygen Delivery Method room air Intake Visit Reasons: CONCERN FOR CELLULITIS Chief Complaint: left lower leg pain Wardrobe Mistress Required: No Is patient in pain?: Yes Allergies clonidine (From Catapres) Allergy (Intermediate, Verified 01/01/25 12:21) Topical Reaction to PATCH ONLY, pills ok morphine Adverse Reaction (Intermediate, Verified 01/01/25 12:21) mental status change meperidine HCl (From Demerol) Adverse Reaction (Mild, Verified 01/01/25 12:21) mental status change Is last menstrual period known: No Post menopausal: Yes Patient : No Have you fallen in the past year?: No Nurse's Note: c/o severe pain to lateral left lower leg x 24 hours. denies injury, trauma. pt concern for cellulitis. no swelling, redness, drainage noted. two red dots in area of concern without induration. pt unable to see due to location of pain. [facility] Medical History Obesity Left carotid artery stenosis (HFpEF) heart failure with preserved ejection fraction Hiatal hernia Nocturnal hypoxia Labile blood pressure FTT (failure to thrive) in adult ABDI (obstructive sleep apnea) Left adrenal mass Uncontrolled hypertension Shakiness Hypoxia Labile blood pressure Encounter for education Left adrenal mass Diastolic congestive heart failure Hypertension Diabetes mellitus Glaucoma Chronic kidney disease, stage 3a Debility HLD (hyperlipidemia) Stage 3a chronic kidney disease (CKD) Hypertension CHF (congestive heart failure) Breast abscess Wears hearing aid Wears glasses Arthritis History of IBS PONV (postoperative nausea and vomiting) Breast cancer, right breast ( 03/2022) Right flank pain Recurrent incisional hernia with incarceration BMI 40.0-44.9, adult Type 2 diabetes mellitus Hypoxia Bilateral carotid artery stenosis Hyperlipidemia GERD (gastroesophageal reflux disease) Bilateral extracranial carotid artery stenosis HTN (hypertension) Body aches Cough Malaise Surgical History History of colonoscopy History of right breast biopsy ( 03/2022) History of umbilical hernia repair History of cholecystectomy History of hysterectomy History of cataract extraction Family History Brother Pancreatic cancer Diabetes Heart disease Lung cancer Hypertension Colon cancer Mother Hypertension Brother No problems noted. 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 Patient states that her symptoms began within the past 24 hours and have progressed to severe pain since onset. She states that the pain is localized to the lateral aspect of her left ankle and involves redness of the ankle. Patient states that the pain is a burning discomfort that worsens with palpation. She notes that she contacted her PCP and they encouraged her to be evaluated at an urgent care to r/o cellulitis. Patient denies recent trauma, surgery, or use of assistive devices for the ankle. Patient has noted 2 small red spots on the affected ankle but is unsure when the appeared or if they are related. Patient is not currently utilizing any treatment for this issue at this time. ROS Const Constitutional: No body ache, chills, fatigue, fever(s) or weakness Musc Musculoskeletal: Positive for abnormal gait, joint pain, back pain, joint swelling, limited range of motion and tingling; No muscle weakness Skin Skin: Positive for redness; No rash, skin pain or sores Neuro Neurology: Positive for abnormal gait and tingling; No weakness Endo Endocrine: No fatigue Exam Const General: cooperative, healthy appear (more content not included)... Normal [facility] Absolute lymphocyte countOrd ered By: Mackenzie Vance on 12-24-2024 Lymphocytes Auto (Unsp spec) [#/Vol] 1.58 10*3/uL 0.83-4.51 [facility] Absolute neutrophil countOrd ered By: Mackenzie Vance on 12-24-2024 Neutrophils (Bld) [#/Vol] 11.7 10*3/uL High 2.0-7.7 [facility] Anion gap in Serum or Plasma Ordered By: Mackenzie Vance on 12-24-2024 Anion gap [Moles/Vol] 11 mmol/L 5-15 [facility] Automated lymphocyte count a s percentage of total leukocytesOrdered By: Mackenzie Vance on 12-24-2024 Lymphocytes/100 WBC Auto (Unsp spec) 10.4 % Low 19-41 [facility] BUN/creatinine ratioOrdered By: Mackenzie Vance on 12-24-2024 Urea nitrogen/Creatinine [Mass ratio] 19.0 mg/mg 10-20 [facility] Basophil percentageOrdered B y: Mackenzie Vance on 12-24-2024 Basophils/100 WBC (Bld) 0.5 % 0-1 [facility] Bilirubin, totalOrdered By: Mackenzie Vance on 12-24-2024 Bilirubin [Mass/Vol] 1.23 mg/dL 0.00-1.30 [facility] CBC W/Diff, Automatedon 06-0 6-2024 Absolute Lymph 1.58 X10 3/uL Normal 0.83-4.51 [facility] Comment on above: Performed By: #### L 500.4050, L100.0100 ####[facility] [address] [place], [address] Absolute Neut 11.7 X10 3/uL High 2.0-7.7 [facility] Comment on above: Performed By: #### L 500.4050, L100.0100 ####[facility] [address] [place], [address] Basophils/100 WBC (Bld) 0.5 % Normal 0-1 [facility] Comment on above: Performed By: #### L 500.4050, L100.0100 ####[facility] [address], [address] Eosinophils/100 WBC (Bld) 1.6 % Normal 0-5 [facility] Comment on above: Performed By: #### L 500.4050, L100.0100 ####[facility] [address] [place], [address] Erythrocyte distribution width (RBC) [Ratio] 13.1 % Normal 11.6-14.6 [facility] Comment on above: Performed By: #### L 500.4050, L100.0100 ####[facility] [address] [place], [address] Hematocrit (Bld) [Volume fraction] 38.0 % Normal 37-47 [facility] Comment on above: Performed By: #### L 500.4050, L100.0100 ####[facility] [address] [place], [address] Hemoglobin (Bld) [Mass/Vol] 13.0 g/dL Normal 12.0-15.0 [facility] Comment on above: Performed By: #### L 500.4050, L100.0100 ####[facility] [address] [place], [address] IG% 0.300 Normal 0.0-0.9 [facility] Comment on above: Result Comment: IG% - Immature Granulocytes (promyelocytes, myelocytes and metamyelocytes) > 1% indicates that a LEFT SHIFT is Present. Performed By: #### L 500.4050, L100.0100 ####[facility] [address] [place], [address] Lymphocytes/100 WBC (Bld) 10.4 % Low 19-41 [facility] Comment on above: Performed By: #### L 500.4050, L100.0100 ####[facility] [address] [place], [address] MCH (RBC) [Entitic mass] 30.2 pg Normal 27.0-32.0 [facility] Comment on above: Performed By: #### L 500.4050, L100.0100 ####[facility] [address] [place], [address] MCHC (RBC) [Mass/Vol] 34.2 g/dL Normal 32-36 [facility] Comment on above: Performed By: #### L 500.4050, L100.0100 ####[facility] [address] [place], [address] MCV (RBC) [Entitic vol] 88.2 fL Normal 81-99 [facility] Comment on above: Performed By: #### L 500.4050, L100.0100 ####[facility] [address] [place], [address] Monocytes/100 WBC (Bld) 10.0 % Normal 0-10 [facility] Comment on above: Performed By: #### L 500.4050, L100.0100 ####[facility] [address] [place], [address] Neutrophils/100 WBC (Bld) 77.2 % High 47-70 [facility] Comment on above: Performed By: #### L 500.4050, L100.0100 ####[facility] [address] [place], [address] Nucleated RBC (Bld) [#/Vol] 0 10*3/uL Normal 0-5 [facility] Comment on above: Performed By: #### L 500.4050, L100.0100 ####[facility] [address] [place], [address] Platelet mean volume (Bld) [Entitic vol] 10.1 fL Normal 6.2-12.0 [facility] Comment on above: Performed By: #### L 500.4050, L100.0100 ####[facility] [address] [place], [address] Platelets (Bld) [#/Vol] 248 10*3/uL Normal 150-450 [facility] Comment on above: Performed By: #### L 500.4050, L100.0100 ####[facility] [address] [place], [address] RBC (Bld) [#/Vol] 4.31 10*6/uL Normal 4.2-5.4 [facility] Comment on above: Performed By: #### L 500.4050, L100.0100 ####[facility] [address] [place], [address] RDW SD 42.7 fl Normal 35.1-43.9 [facility] Comment on above: Performed By: #### L 500.4050, L100.0100 ####[facility] [address] [place], [address] WBC (Bld) [#/Vol] 15.1 10*3/uL High 4.4-11.0 [facility] Comment on above: Performed By: #### L 500.4050, L100.0100 ####[facility] [address] [place], [address] Carbon dioxide, total [Moles /volume] in Central venous bloodOrdered By: Mackenzie Vance on 12-24-2024 CO2 [Moles/Vol] 23.1 mmol/L 21.0-32.0 [facility] Chest PA and Lateralon 12-24 Chest PA and Lateral [facility] [address] [place] [address] Chest PA and Lateral MR#: [id number] Acct: [id number] Name: DEBBIE MIRELES Rep #: [id number] : 1935 F 89 From: [facility] PCP: Dr. Martina Lal DO Status: DEP AMB Study: Chest PA and Lateral Date of Exam: 12/24/24 Exam# [id number] Ordering Dr: Mackenzie Vance 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-Jonn PROCEDURE: CHEST PA AND LATERAL 12/24/2024 REASON FOR EXAM: FEVER TECHNIQUE: Frontal and lateral views of the chest. COMPARISON: AP chest of 07/13/2022. RAD/Chest PA and Lateral IMPRESSION: Right upper quadrant abdominal surgical clips are again seen. Stable subtle density right upper lobe, laterally, abutting minor fissure, compared with the study of 2021. Mild area probable scarring of the left lower lung laterally, increased since the prior exam. No focal infiltrate is seen.. No evidence of pulmonary edema. No pleural effusion or pneumothorax is seen. A prominently calcified aorta is noted. No evidence of cardiomegaly. No acute osseous process is seen. Reading Location: [address] CC: 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Peter Vance; Dr. Martina Lal DO Assistant Project Manager: Signed Normal [facility] Chloride assayOrdered By: Eliana Vance on 12-24-2024 Chloride [Moles/Vol] 100 mmol/L 98-108 [facility] Comprehensive Metabolic Prof ilon 12-24-2024 Albumin [Mass/Vol] 3.6 g/dL Normal 3.4-4.8 [facility] Comment on above: Performed By: #### L 500.4050, L100.0100 ####[facility] [address] [place], [address] Albumin/Globulin [Mass ratio] 1.0 {ratio} Normal 0.9-2.4 [facility] Comment on above: Performed By: #### L 500.4050, L100.0100 ####[facility] [address] [place], [address] ALK PHOS 80 U/L Normal 35-104 [facility] Comment on above: Performed By: #### L 500.4050, L100.0100 ####[facility] [address] [place], [address] ALT [Catalytic activity/Vol] 16 U/L Normal <=34 [facility] Comment on above: Performed By: #### L 500.4050, L100.0100 ####[facility] [address] [place], [address] AST [Catalytic activity/Vol] 18 U/L Normal <=31 [facility] Comment on above: Performed By: #### L 500.4050, L100.0100 ####[facility] [address] [place], [address] Bilirubin [Mass/Vol] 1.23 mg/dL Normal 0.00-1.30 [facility] Comment on above: Performed By: #### L 500.4050, L100.0100 ####[facility] [address] [place], [address] BUN/CRE 19.0 RATIO Normal 10-20 [facility] Comment on above: Performed By: #### L 500.4050, L100.0100 ####[facility] [address] [place], [address] Calcium [Mass/Vol] 10.0 mg/dL Normal 7.6-11.0 [facility] Comment on above: Performed By: #### L 500.4050, L100.0100 ####[facility] [address] [place], [address] Chloride [Moles/Vol] 100 mmol/L Normal 98-108 [facility] Comment on above: Performed By: #### L 500.4050, L100.0100 ####[facility] [address] [place], [address] CO2 [Moles/Vol] 23.1 mmol/L Normal 21.0-32.0 [facility] Comment on above: Performed By: #### L 500.4050, L100.0100 ####[facility] [address] [place], [address] Creatinine [Mass/Vol] 1.56 mg/dL High 0.70-1.20 [facility] Comment on above: Performed By: #### L 500.4050, L100.0100 ####[facility] [address] [place], [address] GAP 11 Normal 5-15 [facility] Comment on above: Performed By: #### L 500.4050, L100.0100 ####[facility] [address] [place], [address] GFR/1.73 sq M.predicted among non-blacks MDRD (S/P/Bld) [Vol rate/Area] 32 mL/min/{1.73_m2} Low >60 [facility] Comment on above: Result Comment: mL/m in/1.73m2 CKD-EPI Creatinine Equation (2020) Performed By: #### L 500.4050, L100.0100 ####[facility] [address] [place], [address] Globulin (S) [Mass/Vol] 3.5 g/dL Normal 2.2-4.2 [facility] Comment on above: Performed By: #### L 500.4050, L100.0100 ####[facility] [address] [place], [address] Glucose [Mass/Vol] 178 mg/dL High 70-99 [facility] Comment on above: Performed By: #### L 500.4050, L100.0100 ####[facility] [address] [place], [address] Potassium [Moles/Vol] 4.4 mmol/L Normal 3.3-5.1 [facility] Comment on above: Performed By: #### L 500.4050, L100.0100 ####[facility] [address] [place], [address] Sodium [Moles/Vol] 135 mmol/L Normal 133-145 [facility] Comment on above: Performed By: #### L 500.4050, L100.0100 ####[facility] [address] [place], [address] T PROT 7.1 g/dL Normal 5.9-8.4 [facility] Comment on above: Performed By: #### L 500.4050, L100.0100 ####[facility] [address] [place], [address] Urea nitrogen [Mass/Vol] 30 mg/dL High 4-19 [facility] Comment on above: Performed By: #### L 500.4050, L100.0100 ####[facility] [address] [place], [address] Eosinophil percentageOrdered By: Mackenzie Vance on 12-24-2024 Eosinophils/100 WBC (Bld) 1.6 % 0-5 [facility] Erythrocyte distribution wid th ratioOrdered By: Mackenzie Vance on 12-24-2024 Erythrocyte distribution width (RBC) [Ratio] 13.1 % 11.6-14.6 [facility] Erythrocyte distribution wid th standard deviationOrdered By: Mackenzie Vance on 12-24-2024 Erythrocyte distribution width (RBC) [Ratio] 42.7 fl 35.1-43.9 [facility] Glomerular filtration rate ( GFR) estimation/1.73 sq m using serum, plasma, or whole bOrdered By: Mackenzie Vance on 12-24-2024 GFR/1.73 sq M.predicted among non-blacks MDRD (S/P/Bld) [Vol rate/Area] 32 mL/min/{1.73_m2} Low >60 [facility] Comment on above: mL/min/1.73m2 CKD-EP I Creatinine Equation (2020) Hematocrit Auto (Bld) [Volum e fraction]Ordered By: Mackenzie Vance on 12-24-2024 Hematocrit (Bld) [Volume fraction] 38.0 % 37-47 [facility] Hemoglobin measurementOrdere d By: Mackenzie Vance on 12-24-2024 Hemoglobin (Bld) [Mass/Vol] 13.0 g/dL 12.0-15.0 [facility] Immature granulocytes/100 WB C Auto (Bld)Ordered By: Mackenzie Vance on 12-24-2024 Immature granulocytes/100 WBC (Bld) 0.300 % 0.0-0.9 [facility] Comment on above: IG% - Immature Granu locytes (promyelocytes, myelocytes and metamyelocytes) > 1% indicates that a LEFT SHIFT is Present. Laboratory - Chemistry and C hemistry - challengeOrdered By: Mackenzie Vance on 12-24-2024 AST [Catalytic activity/Vol] 18 U/L <32 [facility] MCV (mean corpuscular volume ) determinationOrdered By: Mackenzie aVnce on 12-24-2024 MCV (RBC) [Entitic vol] 88.2 fL 81-99 [facility] Mean corpuscular hemoglobin (MCH) determinationOrdered By: Mackenzie Vance on 12-24-2024 MCH (RBC) [Entitic mass] 30.2 pg 27.0-32.0 [facility] Mean corpuscular hemoglobin concentration (MCHC) determinationOrdered By: Mackenzie Vance on 12-24-2024 MCHC (RBC) [Mass/Vol] 34.2 g/dL 32-36 [facility] Mean platelet volume determi nationOrdered By: Mackenzie Vance on 12-24-2024 Platelet mean volume (Bld) [Entitic vol] 10.1 fL 6.2-12.0 [facility] Monocyte percentageOrdered B y: Mackenzie Vance on 12-24-2024 Monocytes/100 WBC (Bld) 10.0 % 0-10 [facility] Neutrophil percentageOrdered By: Mackenzie Vance on 12-24-2024 Neutrophils/100 WBC (Bld) 77.2 % High 47-70 [facility] Nucleated red blood cell per centageOrdered By: Mackenzie Vance on 12-24-2024 Nucleated RBC/100 WBC (Bld) [Ratio] 0 % 0-5 [facility] Platelet countOrdered By: Eliana Vance on 12-24-2024 Platelets (Bld) [#/Vol] 248 10*3/uL 150-450 [facility] Potassium measurement (mass/ volume)Ordered By: Mackenzie Vance on 12-24-2024 Potassium (Unsp spec) [Mass/Vol] 4.4 mmol/L 3.3-5.1 [facility] RBC Auto (Bld) [#/Vol]Ordere d By: Mackenzie Vance on 12-24-2024 RBC (Bld) [#/Vol] 4.31 10*6/uL 4.2-5.4 [facility] Serum creatinine measurement (mass/volume)Ordered By: Mackenzie Vance on 12-24-2024 Creatinine [Mass/Vol] 1.56 mg/dL High 0.70-1.20 [facility] Serum globulin measurementOr dered By: Mackenzie Vance on 12-24-2024 Globulin (S) [Mass/Vol] 3.5 g/dL 2.2-4.2 [facility] Serum glucose measurement (m ass/volume)Ordered By: Mackenzie Vance on 12-24-2024 Glucose [Mass/Vol] 178 mg/dL High 70-99 [facility] Serum or plasma alanine michaels otransferase (ALT) measurementOrdered By: Mackenzie Vance on 12-24-2024 ALT [Catalytic activity/Vol] 16 U/L <35 [facility] Serum or plasma albumin brian urement (mass/volume)Ordered By: Mackenzie Vance on 12-24-2024 Albumin [Mass/Vol] 3.6 g/dL 3.4-4.8 [facility] Serum or plasma albumin/glob ulin mass ratioOrdered By: Mackenzie Vance on 12-24-2024 Albumin/Globulin [Mass ratio] 1.0 {ratio} 0.9-2.4 [facility] Serum or plasma alkaline ashley sphatase measurementOrdered By: Mackenzie Vance on 12-24-2024 ALP [Catalytic activity/Vol] 80 U/L 35-104 [facility] Serum or plasma calcium brian urement (mass/volume)Ordered By: Mackenzie Vance on 12-24-2024 Calcium [Mass/Vol] 10.0 mg/dL 7.6-11.0 [facility] Serum or plasma urea nitroge n measurement (mass/volume)Ordered By: Mackenzie Vance on 12-24-2024 Urea nitrogen [Mass/Vol] 30 mg/dL High 4-19 [facility] Sodium levelOrdered By: Brittany Vance on 12-24-2024 Sodium [Moles/Vol] 135 mmol/L 133-145 [facility] Total proteinOrdered By: Siva Vance on 12-24-2024 Protein [Mass/Vol] 7.1 g/dL 5.9-8.4 [facility] White blood cell (WBC) count Ordered By: Mackenzie Vance on 12-24-2024 WBC (Bld) [#/Vol] 15.1 10*3/uL High 4.4-11.0 [facility] Cardiology Visit Reporton Cardiology Visit Report [facility] [address] [place] [address]. [address] [place], [place] [address] OFFICE VISIT Date of Service: 12/16/24 MR#: [id number] Acct: [id number] Name: DEBBIE MIRELES Rep #: [id number] : 1935 Provider: PADMINI Jean Baptiste Age/Sex: 89/F Location: [facility] Status: Signed HPI HPI History of Present Illness Details: Patient 89-year-old white female that comes in today for cardiovascular monitoring. The patient carries a history of heart failure with preserved ejection fraction. She does have a hx of hypertension and hyperlipidemia. She does have atherosclerotic disease with greater than 70% stenosis in the left internal carotid artery which is followed by Dr. Trimble. Most morning she is fatigued. She finds that she is more winded than she would like to be. She finds that she does have swelling in her legs and does get worse t/o the day. She does feel that she has gained. She has been using her lasix 40 mg daily, she does take an extra dose of lasix 1-2 times a week. She does follow with nephrology. She has put on 20 lbs since last year. Last month she questions if she had a mild UT. She had a tingling in her rib area. It was under her breast and did radiate around to her back. It was tight. She had a weird feeling. She did not go to the ER. She feel asleep and then it improved. a few weeks ago she had a similar event but not as bad. She swallowed a NTG that was her sons but did not let it disolve under her tongue. Intake Vital Signs 08/17/24 12:53 12/16/24 09:36 12/16/24 14:22 Height 5 ft 2 in 5 ft 2 in Weight: 225 lb BMI 41.1 BP 160/71 H 148/50 H Blood Pressure Location Lt brachial Position Sitting Respiration 20 H Pulse 73 Pulse Source Monitor Pulse Oximetry (%) 96 Intake Visit Reasons: 4 M FU Wardrobe Mistress Required: No Is patient in pain?: No Allergies clonidine (From Catapres) Allergy (Intermediate, Verified 12/16/24 13:38) Topical Reaction to PATCH ONLY, pills ok morphine Adverse Reaction (Intermediate, Verified 12/16/24 13:38) mental status change meperidine HCl (From Demerol) Adverse Reaction (Mild, Verified 12/16/24 13:38) mental status change Medications ???Medication ???Instructions ???Recorded ???Confirmed ???Type latanoprost 0.005 % eye drops 1 drp EACH EYE QHS Cataracts/Dry 0 07/29/14 12/16/24 History (Xalatan) eye cholecalciferol (vitamin D3) 125 125 mcg PO DAILY SUPPLEMENT 12/16/24 History mcg (5,000 unit) capsule nateglinide 60 mg tablet 60 mg PO TID dm 07/13/22 12/16/24 History magnesium oxide 400 mg PO DAILY 03/03/23 12/16/24 History aspirin 81 mg chewable tablet 81 mg PO DAILY HEART HEALTH 12/16/24 History calcium carbonate 500 mg PO DAILY 11/20/23 12/16/24 History potassium, sodium phosphates 280 1 packet PO QDAY 04/28/24 12/16/24 History mg-160 mg-250 mg oral powder packet (Phos-NaK) losartan 100 mg tablet 100 mg PO DAILY #90 tabs 05/03/24 12/16/24 Rx dupilumab 200 mg/1.14 mL 200 mg subcut Q2W 08/17/24 5 History subcutaneous pen injector (Dupixent) rosuvastatin 5 mg tablet 5 mg PO QHS #90 tabs 08/17/2411/19 Rx furosemide 40 mg tablet 40 mg PO DAILY #90 tabs 10/04/24 0 12/16/24 Rx nifedipine 90 mg tablet,extended 90 mg PO QPM #90 tabs 10/04/24 Rx release Ejection fraction %: 55 Have you fallen in the past year?: No PFSH Medical History Obesity Left carotid artery stenosis (HFpEF) heart failure with preserved ejection fraction Hiatal hernia Nocturnal hypoxia Labile blood pressure FTT (failure to thrive) in adult ABDI (obstructive sleep apnea) Left adrenal mass Uncontrolled hypertension Shakiness Hypoxia Labile blood pressure Encounter for education Left adrenal mass Diastolic congestive heart failure Hypertension Diabetes mellitus Glaucoma Chronic kidney disease, stage 3a Debility HLD (hyperlipidemia) Stage 3a chronic kidney disease (CKD) Hypertension CHF (congestive heart failure) Breast abscess Wears hearing aid Wears glasses Arthritis History of IBS PONV (postoperative nausea and vomiting) Breast cancer, right breast ( 03/2022) Right flank pain Recurrent incisional hernia with incarceration BMI 40.0-44.9, adult Type 2 diabetes mellitus Hypoxia Bilateral carotid artery stenosis Hyperlipidemia GERD (gastroesophageal reflux disease) Bilateral extracranial carotid artery stenosis HTN (hypertension) Body aches Cough Malaise Surgical History History of colonoscopy History of right breast biopsy ( 03/2022) History of umbilical hernia repair History of cholecystectomy History of hysterectomy H (more content not included)... Normal [facility] Bilirubin directOrdered By: Kimberly Hernandez on 12-06-2024 Bilirubin.direct [Mass/Vol] 0.28 mg/dL 0.00-0.30 [facility] Bilirubin, totalOrdered By: Kimberly Hernandez on 12-06-2024 Bilirubin [Mass/Vol] 0.68 mg/dL 0.00-1.30 [facility] Calculated very low density lipoprotein (VLDL) cholesterol measurementOrdered By: Kimberly Hernandez on 12-06-2024 Calculated very low density lipoprotein (VLDL) cholesterol measurement 24 mg/dL 5-40 [facility] LDL calc ser/plasOrdered By: Kimberly Hernandez on 12-06-2024 Cholesterol in LDL [Mass/Vol] 77 mg/dL [facility] Comment on above: Dtxevryuus=883-946 m g/dL & Higher Czdp=244 mg/dL or greater Laboratory - Chemistry and C hemistry - challengeOrdered By: Kimberly Hernandez on 12-06-2024 AST [Catalytic activity/Vol] 24 U/L <32 [facility] Lipid Profileon 12-06-2024 CHOL:HDL 3.20 Normal [facility] Comment on above: Performed By: #### L 500.5713, L500.7675 ####[facility] [address] [place], [place], [id number] Cholesterol [Mass/Vol] 147 mg/dL Normal <=200 [facility] Comment on above: Result Comment: Chol esterol level, Desirable <200 mg/dL Borderline high cholesterol 200-239 mg/dL High cholesterol >=240 mg/dL Recommendations of the NCEP Adult Treatment Panel for the following risk-cutoff thresholds for the [place] population. Performed By: #### L 500.4100, L500.3400 ####[facility] [address] [place], [address] Cholesterol in HDL [Mass/Vol] 46 mg/dL Normal [facility] Comment on above: Result Comment: Shabnam onal Cholesterol Education Program (NCEP) guidelines: <40 mg/dL: Low HDL-cholesterol (major risk factor for CHD) >= 60 mg/dL: High HDL-cholesterol (negative risk factor for CHD) HDL-cholesterol is affected by a number of factors, e.g. smoking, exercise, hormones, sex and age. Performed By: #### L 500.4100, L500.3400 ####[facility] [address] [place], [address] Cholesterol in LDL [Mass/Vol] 77 mg/dL Normal [facility] Comment on above: Result Comment: Bord mgrtgq=955-849 mg/dL Higher Ojxn=595 mg/dL or greater Performed By: #### L 500.4100, L500.3400 ####[facility] [address] [place], [address] Cholesterol in VLDL [Mass/Vol] 24 mg/dL Normal 5-40 [facility] Comment on above: Performed By: #### L 500.4100, L500.3400 ####[facility] [address] [place], [address] Triglyceride [Mass/Vol] 121 mg/dL Normal [facility] Comment on above: Result Comment: The drugs N-Acetylcysteine and Metamizole may falsely depress this assay. Normal range: <150 mg/dL Borderline High: 150-199 mg/dL High: 200-499 mg/dL Very High: >500 mg/dL Performed By: #### L 500.4100, L500.3400 ####[facility] [address] [place], [address] Liver Profileon 12-06-2024 Albumin [Mass/Vol] 3.9 g/dL Normal 3.4-4.8 [facility] Comment on above: Performed By: #### L 500.4100, L500.3400 ####[facility] [address] [place], [address] ALK PHOS 80 U/L Normal 35-104 [facility] Comment on above: Performed By: #### L 500.4100, L500.3400 ####[facility] [address] [place], [address] ALT [Catalytic activity/Vol] 19 U/L Normal <=34 [facility] Comment on above: Performed By: #### L 500.4100, L500.3400 ####[facility] [address] [place], [address] AST [Catalytic activity/Vol] 24 U/L Normal <=31 [facility] Comment on above: Performed By: #### L 500.4100, L500.3400 ####[facility] [address] [place], [address] Bilirubin [Mass/Vol] 0.68 mg/dL Normal 0.00-1.30 [facility] Comment on above: Performed By: #### L 500.4100, L500.3400 ####[facility] [address] [place], [address] Bilirubin.direct [Mass/Vol] 0.28 mg/dL Normal 0.00-0.30 [facility] Comment on above: Performed By: #### L 500.4100, L500.3400 ####[facility] [address] [place], [address] Globulin (S) [Mass/Vol] 3.6 g/dL Normal 2.2-4.2 [facility] Comment on above: Performed By: #### L 500.4100, L500.3400 ####[facility] [address] [place], [place], [id number] T PROT 7.5 g/dL Normal 5.9-8.4 [facility] Comment on above: Performed By: #### L 500.4100, L500.3400 ####[facility] [address] [place], [place], [id number] Screening total cholesterol/ high density lipoprotein (HDL) cholesterol ratioOrdered By: Kimberly Hernandez on 12-06-2024 Cholesterol.total/Choles terol in HDL [Mass ratio] 3.20 {ratio} [facility] Serum globulin measurementOr dered By: Kimberly Hernandez on 12-06-2024 Globulin (S) [Mass/Vol] 3.6 g/dL 2.2-4.2 [facility] Serum or plasma alanine michaels otransferase (ALT) measurementOrdered By: Kimberly Hernandez on 12-06-2024 ALT [Catalytic activity/Vol] 19 U/L <35 [facility] Serum or plasma albumin brian urement (mass/volume)Ordered By: Kimberly Hernandez on 12-06-2024 Albumin [Mass/Vol] 3.9 g/dL 3.4-4.8 [facility] Serum or plasma alkaline ashley sphatase measurementOrdered By: Kimberly Hernandez on 12-06-2024 ALP [Catalytic activity/Vol] 80 U/L 35-104 [facility] Serum or plasma cholesterol in HDL measurement (mass/volume)Ordered By: Kimberly Hernandez on 12-06-2024 Cholesterol in HDL [Mass/Vol] 46 mg/dL >40 [facility] Comment on above: National Cholesterol Education Program (NCEP) guidelines:<40 mg/dL: Low HDL-cholesterol (major risk factor for CHD)>= 60 mg/dL: High HDL-cholesterol (negative risk factor for CHD)HDL-cholesterol is affected by a number of factors, e.g. smoking, exercise, hormones, sex and age. Serum or plasma cholesterol measurement (mass/volume)Ordered By: Kimberly Hernandez on 12-06-2024 Cholesterol [Mass/Vol] 147 mg/dL <201 [facility] Comment on above: Cholesterol level, D esirable <200 mg/dLBorderline high cholesterol 200-239 mg/dLHigh cholesterol >=240 mg/dLRecommendations of the NCEP Adult Treatment Panel for the following risk-cutoff thresholds for the [place] population. Total proteinOrdered By: Jass jw David on 12-06-2024 Protein [Mass/Vol] 7.5 g/dL 5.9-8.4 [facility] Triglycerides measurementOrd ered By: Kimberly David on 12-06-2024 Triglyceride [Mass/Vol] 121 mg/dL <199 [facility] Comment on above: The drugs N-Acetylcy steine and Metamizole may falsely depress this assay. Normal range: <150 mg/dLBorderline High: 150-199 mg/dLHigh: 200-499 mg/dLVery High: >500 mg/dL Carotid Duplex Ultrasoundon 11-09-2024 Carotid Duplex Ultrasound [facility] [address] [place] [address] Carotid Duplex Ultrasound 11/09/24 1259 MR#: [id number] Acct: [id number] Name: DEBBIE MIRELES Rep #: [id number] : 1935 89 From: Willy Trimble MD Attending Dr: PADMINI Matamoros Status: REG CLI Ordering Dr: Louise Suarez Date: 11/09/24 Location: [facility] Sex: F C Admitted: Reason For Study Reason For Study: Lt ICA STENOSIS Rt. Velocities/BP Lt. Velocities/BP Prox CCA 73.6/8.5 cm/sec. Prox CCA 63.6/6.5 cm/sec. Mid CCA 83.0/14.2 cm/sec. Mid CCA 84.5/9.8 cm/sec. Dist CCA 91.2/12.6 cm/sec. Dist CCA 60.7/11.0 cm/sec. Prox ICA 92.5/17.6 cm/sec. Prox ICA 257.3/44.0 cm/sec. Mid ICA 114.6/15.1 cm/sec. Mid ICA 133.0/16.7 cm/sec. Dist ICA 99.8/13.9 cm/sec. Dist ICA 93.5/14.5 cm/sec. Rt. ICA/CCA = 1.4. Lt. ICA/CCA = 3.0. Prox ECA 358.9/10.7 cm/sec. Prox ECA 424.0/21.0 cm/sec. Rt. Vert. 56.4/12.2 cm/sec. Lt. Vert. 50.4/7.6 cm/sec. Right Extracranial There is heterogeneous, irregular atherosclerotic plaque noted in the right common carotid artery. There is heterogeneous, irregular atherosclerotic plaque noted in the right internal carotid artery. There is heterogeneous, irregular atherosclerotic plaque noted in the right external carotid artery. Antegrade flow is noted in the right vertebral artery. Left Extracranial There is heterogeneous, irregular atherosclerotic plaque noted in the left common carotid artery. There is heterogeneous, irregular atherosclerotic plaque noted in the left internal carotid artery. The left internal carotid artery is very tortuous. There is heterogeneous, irregular atherosclerotic plaque noted in the left external carotid artery. Antegrade flow is noted in the left vertebral artery. Procedure Carotid Duplex [id number]. This is a Carotid Duplex examination using B-mode, color flow and specral Doppler. The exam was diagnostic. Exam performed in department. VL/Carotid Duplex Ultrasound Interpretation Summary Mild (<50%) stenosis right extracranial internal carotid. Severe (>70%) stenosis left extracranial internal carotid. Patent and antegrade vertebrals bilaterally. Ordering Physician: Louise Suarez Referring Physician: Martina Lal M.D. Performed By: George Rader Sajan 11/09/24 1808 Date Willy Trimble MD CC: PADMINI Matamoros; Dr. Martina Lal, Date Dictated: 11/09/24 1259 Date Transcribed: 11/09/24 1808 Assistant Project Manager: Signed Normal [facility] Duplex ultrasound of carotid artery reportOrdered By: Willy Trimble on 11-09-2024 Study report [facility] [address] [place] [address] Carotid Duplex Ultrasound 11/09/24 1259 MR#: [id number] Acct: [id number] Name: DEBBIE MIRELES Rep #:[id number] : 1935 89 From: Willy Chi Attending Dr: PADMINI Matamoros Stat us: REG CLI Ordering Dr: Louise Suarez Date: Location: [facility] Sex: F C Admitted: Reason For Study Reason For Study: Lt ICA STENOSIS Rt. Velocities/BP Lt. Velocities/BP Prox CCA 73.6/8.5 cm/sec. Prox CCA 63.6/6.5 cm/sec. Mid CCA 83.0/14.2 cm/sec. Mid CCA 84.5/9.8 cm/sec. Dist CCA 91.2/12.6 cm/sec. Dist CCA 60.7/11.0 cm/sec. Prox ICA 92.5/17.6 cm/sec. Prox ICA 257.3/44.0 cm/sec. Mid ICA 114.6/15.1 cm/sec. Mid ICA 133.0/16.7 cm/sec. Dist ICA 99.8/13.9 cm/sec. Dist ICA 93.5/14.5 cm/sec. Rt. ICA/CCA = 1.4. Lt. ICA/CCA = 3.0. Prox ECA 358.9/10.7 cm/sec. Prox ECA 424.0/21.0 cm/sec. Rt. Vert. 56.4/12.2 cm/sec. Lt. Vert. 50.4/7.6 cm/sec. Right Extracranial There is heterogeneous, irregular atherosclerotic plaque noted in the right common carotid artery. There is heterogeneous, irregular atherosclerotic plaque noted in the right internal carotid artery. There is heterogeneous, irregular atherosclerotic plaque noted in the right external carotid artery. Antegrade flow is noted in the right vertebral artery. Left Extracranial There is heterogeneous, irregular atherosclerotic plaque noted in the left common carotid artery. There is heterogeneous, irregular atherosclerotic plaque noted in the left internal carotid artery. The left internal carotid artery is very tortuous. There is heterogeneous, irregular atherosclerotic plaque noted in the left external carotid artery. Antegrade flow is noted in the left vertebral artery. Procedure Carotid Duplex [id number]. This is a Carotid Duplex examination using B-mode, color flow and specral Doppler. The exam was diagnostic. Exam performed in department. VL/Carotid Duplex Ultrasound Interpretation Summary Mild (<50%) stenosis right extracranial internal carotid. Severe (>70%) stenosis left extracranial internal carotid. Patent and antegrade vertebrals bilaterally. Ordering Physician: Louise Suarez Referring Physician: Martina Lal M.D. Performed By: George Rader, T 11/09/241807 Date _ Willy Trimble MD CC: PADMINI Matamoros; Dr. Martina Lal, DO ~ Date Dictated: 11/09/24 1259 Date Transcribed: 11/09/241807 Assistant Project Manager: Signed [facility] Work Phone: Absolute lymphocyte countOrd ered By: Martina Lal on 10-12-2024 Lymphocytes Auto (Unsp spec) [#/Vol] 2.50 10*3/uL 0.83-4.51 [facility] Absolute neutrophil countOrd ered By: Martina Lal on 10-12-2024 Neutrophils (Bld) [#/Vol] 4.9 10*3/uL 2.0-7.7 [facility] Albumin DL <= 20 mg/L (U) [M ass/Vol]Ordered By: Martina Lal on 10-12-2024 Urine Random Microalbumin 14.0 mg/L NO RANGE EST. [facility] Anion gap in Serum or Plasma Ordered By: Martina Lal on 10-12-2024 Anion gap [Moles/Vol] 11 mmol/L 5-15 [facility] Automated lymphocyte count a s percentage of total leukocytesOrdered By: Martina Lal on 10-12-2024 Lymphocytes/100 WBC Auto (Unsp spec) 27.9 % 19-41 [facility] BUN/creatinine ratioOrdered By: Martina Lal on 10-12-2024 Urea nitrogen/Creatinine [Mass ratio] 23.9 mg/mg High 10-20 [facility] Basophil percentageOrdered B y: Martina Lal on 10-12-2024 Basophils/100 WBC (Bld) 0.9 % 0-1 [facility] Bilirubin Test strip Ql (U)O rdered By: Martina Lal on 10-12-2024 Bilirubin Ql (U) Negative Negative [facility] Bilirubin directOrdered By: Martina Lal on 10-12-2024 Bilirubin.direct [Mass/Vol] 0.36 mg/dL High 0.00-0.30 [facility] Bilirubin, Directon 10-13-19 Bilirubin.direct [Mass/Vol] 0.36 mg/dL High 0.00-0.30 [facility] Comment on above: Order Comment: DR. Arti ANTHONY GETS RESULTS FOR CBCD,PROCRE URINE DR. FALLTS RESULTS FOR ALL OTHER LABS Performed By: #### L 501.4700, L501.9520, L501.0900, L506.1001, L501.2300, L500.4050, L100.0100, L502.0250, L500.4100, L400.2010 ####[facility] [address] [place], [address] Bilirubin, totalOrdered By: Martina Lal on 10-12-2024 Bilirubin [Mass/Vol] 0.91 mg/dL 0.00-1.30 [facility] CBC W/Diff, Automatedon 03-2 -2024 Absolute Lymph 2.50 X10 3/uL Normal 0.83-4.51 [facility] Comment on above: Performed By: #### L 501.4700, L501.9520, L501.0900, L506.1001, L501.2300, L500.4050, L100.0100, L502.0250, L500.4100, L400.2010 ####[facility] [address] [place], [address] Absolute Neut 4.9 X10 3/uL Normal 2.0-7.7 [facility] Comment on above: Performed By: #### L 501.4700, L501.9520, L501.0900, L506.1001, L501.2300, L500.4050, L100.0100, L502.0250, L500.4100, L400.2010 ####[facility] [address] [place], [address] Basophils/100 WBC (Bld) 0.9 % Normal 0-1 [facility] Comment on above: Performed By: #### L 501.4700, L501.9520, L501.0900, L506.1001, L501.2300, L500.4050, L100.0100, L502.0250, L500.4100, L400.2010 ####[facility] [address] [place], [address] Eosinophils/100 WBC (Bld) 4.0 % Normal 0-5 [facility] Comment on above: Performed By: #### L 501.4700, L501.9520, L501.0900, L506.1001, L501.2300, L500.4050, L100.0100, L502.0250, L500.4100, L400.2010 ####[facility] [address] [place], [place], [address] Erythrocyte distribution width (RBC) [Ratio] 13.2 % Normal 11.6-14.6 [facility] Comment on above: Performed By: #### L 501.4700, L501.9520, L501.0900, L506.1001, L501.2300, L500.4050, L100.0100, L502.0250, L500.4100, L400.2010 ####[facility] [address] [facility] [address] [place], [place], [address] Hematocrit (Bld) [Volume fraction] 41.4 % Normal 37-47 [facility] Comment on above: Performed By: #### L 501.4700, L501.9520, L501.0900, L506.1001, L501.2300, L500.4050, L100.0100, L502.0250, L500.4100, L400.2010 ####[facility] [address] [place], [place], [address] Hemoglobin (Bld) [Mass/Vol] 14.0 g/dL Normal 12.0-15.0 [facility] Comment on above: Performed By: #### L 501.4700, L501.9520, L501.0900, L506.1001, L501.2300, L500.4050, L100.0100, L502.0250, L500.4100, L400.2010 ####[facility] [address] [facility] [place], [place], [address] IG% 0.400 Normal 0.0-0.9 [facility] Comment on above: Result Comment: IG% - Immature Granulocytes (promyelocytes, myelocytes and metamyelocytes) > 1% indicates that a LEFT SHIFT is Present. Performed By: #### L 501.4700, L501.9520, L501.0900, L506.1001, L501.2300, L500.4050, L100.0100, L502.0250, L500.4100, L400.2010 ####[facility] [address] [place], [address] Lymphocytes/100 WBC (Bld) 27.9 % Normal 19-41 [facility] Comment on above: Performed By: #### L 501.4700, L501.9520, L501.0900, L506.1001, L501.2300, L500.4050, L100.0100, L502.0250, L500.4100, L400.2010 ####[facility] [address] [place], [address] MCH (RBC) [Entitic mass] 30.6 pg Normal 27.0-32.0 [facility] Comment on above: Performed By: #### L 501.4700, L501.9520, L501.0900, L506.1001, L501.2300, L500.4050, L100.0100, L502.0250, L500.4100, L400.2010 ####[facility] [address] [place], [address] MCHC (RBC) [Mass/Vol] 33.8 g/dL Normal 32-36 [facility] Comment on above: Performed By: #### L 501.4700, L501.9520, L501.0900, L506.1001, L501.2300, L500.4050, L100.0100, L502.0250, L500.4100, L400.2010 ####[facility] [address] [place], [address] MCV (RBC) [Entitic vol] 90.4 fL Normal 81-99 [facility] Comment on above: Performed By: #### L 501.4700, L501.9520, L501.0900, L506.1001, L501.2300, L500.4050, L100.0100, L502.0250, L500.4100, L400.2010 ####[facility] [address] [place], [address] Monocytes/100 WBC (Bld) 11.8 % High 0-10 [facility] Comment on above: Performed By: #### L 501.4700, L501.9520, L501.0900, L506.1001, L501.2300, L500.4050, L100.0100, L502.0250, L500.4100, L400.2010 ####[facility] [address] [place], [address] Neutrophils/100 WBC (Bld) 55.0 % Normal 47-70 [facility] Comment on above: Performed By: #### L 501.4700, L501.9520, L501.0900, L506.1001, L501.2300, L500.4050, L100.0100, L502.0250, L500.4100, L400.2010 ####[facility] [address] [place], [address] Nucleated RBC (Bld) [#/Vol] 0 10*3/uL Normal 0-5 [facility] Comment on above: Performed By: #### L 501.4700, L501.9520, L501.0900, L506.1001, L501.2300, L500.4050, L100.0100, L502.0250, L500.4100, L400.2010 ####[facility] [address] [place], [address] Platelet mean volume (Bld) [Entitic vol] 10.1 fL Normal 6.2-12.0 [facility] Comment on above: Performed By: #### L 501.4700, L501.9520, L501.0900, L506.1001, L501.2300, L500.4050, L100.0100, L502.0250, L500.4100, L400.2010 ####[facility] [address] [place], [address] Platelets (Bld) [#/Vol] 264 10*3/uL Normal 150-450 [facility] Comment on above: Performed By: #### L 501.4700, L501.9520, L501.0900, L506.1001, L501.2300, L500.4050, L100.0100, L502.0250, L500.4100, L400.2010 ####[facility] [address] [place], [address] RBC (Bld) [#/Vol] 4.58 10*6/uL Normal 4.2-5.4 [facility] Comment on above: Performed By: #### L 501.4700, L501.9520, L501.0900, L506.1001, L501.2300, L500.4050, L100.0100, L502.0250, L500.4100, L400.2010 ####[facility] [address] [place], [address] RDW SD 43.7 fl Normal 35.1-43.9 [facility] Comment on above: Performed By: #### L 501.4700, L501.9520, L501.0900, L506.1001, L501.2300, L500.4050, L100.0100, L502.0250, L500.4100, L400.2010 ####[facility] [address] [place], [address] WBC (Bld) [#/Vol] 9.0 10*3/uL Normal 4.4-11.0 [facility] Comment on above: Performed By: #### L 501.4700, L501.9520, L501.0900, L506.1001, L501.2300, L500.4050, L100.0100, L502.0250, L500.4100, L400.2010 ####[facility] [address] [place], [place], [id number] Calculated very low density lipoprotein (VLDL) cholesterol measurementOrdered By: Martina Lal on 10-12-2024 Calculated very low density lipoprotein (VLDL) cholesterol measurement 25 mg/dL 5-40 [facility] VLDL Cholesterol 25 mg/dL 5-40 [facility] Carbon dioxide, total [Moles /volume] in Central venous bloodOrdered By: Martina Lal on 10-12-2024 CO2 [Moles/Vol] 23.1 mmol/L 21.0-32.0 [facility] Chloride assayOrdered By: Pascual Lal on 10-12-2024 Chloride [Moles/Vol] 105 mmol/L 98-108 [facility] Comprehensive Metabolic Prof ilon 10-12-2024 Albumin [Mass/Vol] 3.7 g/dL Normal 3.4-4.8 [facility] Comment on above: Order Comment: DR. Arti ANTHONY GETS RESULTS FOR CBCD,PROCRE URINE DR. WARNER RESULTS FOR ALL OTHER LABS Performed By: #### L 501.4700, L501.9520, L501.0900, L506.1001, L501.2300, L500.4050, L100.0100, L502.0250, L500.4100, L400.2010 ####[facility] [address] [place], [place], [id number] Albumin/Globulin [Mass ratio] 1.1 {ratio} Normal 0.9-2.4 [facility] Comment on above: Order Comment: DR. Arti ANTHONY GETS RESULTS FOR CBCD,PROCRE URINE DR. WARNER RESULTS FOR ALL OTHER LABS Performed By: #### L 501.4700, L501.9520, L501.0900, L506.1001, L501.2300, L500.4050, L100.0100, L502.0250, L500.4100, L400.2010 ####[facility] [address] [place], [place], [phone] ALK PHOS 78 U/L Normal 35-104 [facility] Comment on above: Order Comment: DR. Arti ANTHONY GETS RESULTS FOR CBCD,PROCRE URINE DR. WARNER RESULTS FOR ALL OTHER LABS Performed By: #### L 501.4700, L501.9520, L501.0900, L506.1001, L501.2300, L500.4050, L100.0100, L502.0250, L500.4100, L400.2010 ####[facility] [address] [place], [address] ALT [Catalytic activity/Vol] 19 U/L Normal <=34 [facility] Comment on above: Order Comment: DR. Arti ANTHONY GETS RESULTS FOR CBCD,PROCRE URINE DR. WARNER RESULTS FOR ALL OTHER LABS Performed By: #### L 501.4700, L501.9520, L501.0900, L506.1001, L501.2300, L500.4050, L100.0100, L502.0250, L500.4100, L400.2010 ####[facility] [address] [place], [address] AST [Catalytic activity/Vol] 18 U/L Normal <=31 [facility] Comment on above: Order Comment: DR. Arti ANTHONY GETS RESULTS FOR CBCD,PROCRE URINE DR. WARNER RESULTS FOR ALL OTHER LABS Performed By: #### L 501.4700, L501.9520, L501.0900, L506.1001, L501.2300, L500.4050, L100.0100, L502.0250, L500.4100, L400.2010 ####[facility] [address] [place], [address] Bilirubin [Mass/Vol] 0.91 mg/dL Normal 0.00-1.30 [facility] Comment on above: Order Comment: DR. Arti ANTHONY GETS RESULTS FOR CBCD,PROCRE URINE DR. WARNER RESULTS FOR ALL OTHER LABS Performed By: #### L 501.4700, L501.9520, L501.0900, L506.1001, L501.2300, L500.4050, L100.0100, L502.0250, L500.4100, L400.2010 ####[facility] [address] [place], [address] BUN/CRE 23.9 RATIO High 10-20 [facility] Comment on above: Order Comment: DR. Arti ANTHONY GETS RESULTS FOR CBCD,PROCRE URINE DR. WARNER RESULTS FOR ALL OTHER LABS Performed By: #### L 501.4700, L501.9520, L501.0900, L506.1001, L501.2300, L500.4050, L100.0100, L502.0250, L500.4100, L400.2010 ####[facility] [address] [place], [address] Calcium [Mass/Vol] 10.2 mg/dL Normal 7.6-11.0 [facility] Comment on above: Order Comment: DR. Arti ANTHONY GETS RESULTS FOR CBCD,PROCRE URINE DR. WARNER RESULTS FOR ALL OTHER LABS Performed By: #### L 501.4700, L501.9520, L501.0900, L506.1001, L501.2300, L500.4050, L100.0100, L502.0250, L500.4100, L400.2010 ####[facility] [address] [place], [address] Chloride [Moles/Vol] 105 mmol/L Normal 98-108 [facility] Comment on above: Order Comment: DR. Arti ANTHONY GETS RESULTS FOR CBCD,PROCRE URINE DR. WARNER RESULTS FOR ALL OTHER LABS Performed By: #### L 501.4700, L501.9520, L501.0900, L506.1001, L501.2300, L500.4050, L100.0100, L502.0250, L500.4100, L400.2010 ####[facility] [address] [place], [place], [id number] CO2 [Moles/Vol] 23.1 mmol/L Normal 21.0-32.0 [facility] Comment on above: Order Comment: DR. Arti ANTHONY GETS RESULTS FOR CBCD,PROCRE URINE DR. WARNER RESULTS FOR ALL OTHER LABS Performed By: #### L 501.4700, L501.9520, L501.0900, L506.1001, L501.2300, L500.4050, L100.0100, L502.0250, L500.4100, L400.2010 ####[facility] [address] [facility] [address] [place], [place], [phone]) Creatinine [Mass/Vol] 1.31 mg/dL High 0.70-1.20 [facility] Comment on above: Order Comment: DR. Arti ANTHONY GETS RESULTS FOR CBCD,PROCRE URINE DR. WARNER RESULTS FOR ALL OTHER LABS Performed By: #### L 501.4700, L501.9520, L501.0900, L506.1001, L501.2300, L500.4050, L100.0100, L502.0250, L500.4100, L400.2010 ####[facility] [address] [facility] [place], [address] GAP 11 Normal 5-15 [facility] Comment on above: Order Comment: DR. Arti ANTHONY GETS RESULTS FOR CBCD,PROCRE URINE DR. WARNER RESULTS FOR ALL OTHER LABS Performed By: #### L 501.4700, L501.9520, L501.0900, L506.1001, L501.2300, L500.4050, L100.0100, L502.0250, L500.4100, L400.2010 ####[facility] [address] [facility] [address] [place], [place], [phone]) GFR/1.73 sq M.predicted among non-blacks MDRD (S/P/Bld) [Vol rate/Area] 39 mL/min/{1.73_m2} Low >60 [facility] Comment on above: Order Comment: DR. Arti ANTHONY GETS RESULTS FOR CBCD,PROCRE URINE DR. WARNER RESULTS FOR ALL OTHER LABS Result Comment: mL/m in/1.73m2 CKD-EPI Creatinine Equation (2020) Performed By: #### L 501.4700, L501.9520, L501.0900, L506.1001, L501.2300, L500.4050, L100.0100, L502.0250, L500.4100, L400.2010 ####[facility] [address] [place], [address] Globulin (S) [Mass/Vol] 3.5 g/dL Normal 2.2-4.2 [facility] Comment on above: Order Comment: DR. Arti ANTHONY GETS RESULTS FOR CBCD,PROCRE URINE DR. WARNER RESULTS FOR ALL OTHER LABS Performed By: #### L 501.4700, L501.9520, L501.0900, L506.1001, L501.2300, L500.4050, L100.0100, L502.0250, L500.4100, L400.2010 ####[facility] [address] [place], [address] Glucose [Mass/Vol] 121 mg/dL High 70-99 [facility] Comment on above: Order Comment: DR. Arti ANTHONY GETS RESULTS FOR CBCD,PROCRE URINE DR. WARNER RESULTS FOR ALL OTHER LABS Performed By: #### L 501.4700, L501.9520, L501.0900, L506.1001, L501.2300, L500.4050, L100.0100, L502.0250, L500.4100, L400.2010 ####[facility] [address] [place], [address] Potassium [Moles/Vol] 4.6 mmol/L Normal 3.3-5.1 [facility] Comment on above: Order Comment: DR. Arti ANTHONY GETS RESULTS FOR CBCD,PROCRE URINE DR. WARNER RESULTS FOR ALL OTHER LABS Performed By: #### L 501.4700, L501.9520, L501.0900, L506.1001, L501.2300, L500.4050, L100.0100, L502.0250, L500.4100, L400.2010 ####[facility] [address] [place], [address] Sodium [Moles/Vol] 139 mmol/L Normal 133-145 [facility] Comment on above: Order Comment: DR. Arti ANTHONY GETS RESULTS FOR CBCD,PROCRE URINE DR. WARNER RESULTS FOR ALL OTHER LABS Performed By: #### L 501.4700, L501.9520, L501.0900, L506.1001, L501.2300, L500.4050, L100.0100, L502.0250, L500.4100, L400.2010 ####[facility] [address] [place], [address] T PROT 7.2 g/dL Normal 5.9-8.4 [facility] Comment on above: Order Comment: DR. Arti ANTHONY GETS RESULTS FOR CBCD,PROCRE URINE DR. WARNER RESULTS FOR ALL OTHER LABS Performed By: #### L 501.4700, L501.9520, L501.0900, L506.1001, L501.2300, L500.4050, L100.0100, L502.0250, L500.4100, L400.2010 ####[facility] [address] [place], [address] Urea nitrogen [Mass/Vol] 31 mg/dL High 4-19 [facility] Comment on above: Order Comment: DR. Arti ANTHONY GETS RESULTS FOR CBCD,PROCRE URINE DR. WARNER RESULTS FOR ALL OTHER LABS Performed By: #### L 501.4700, L501.9520, L501.0900, L506.1001, L501.2300, L500.4050, L100.0100, L502.0250, L500.4100, L400.2010 ####[facility] [address] [place], [address] Creatinine Unsp time (U) [Ma ss/Vol]Ordered By: Martina Lal on 10-12-2024 Creatinine (U) [Mass/Vol] 34.60 mg/dL 28.00-217. 00 [facility] Eosinophil percentageOrdered By: Martina Lal on 10-12-2024 Eosinophils/100 WBC (Bld) 4.0 % 0-5 [facility] Erythrocyte distribution wid th ratioOrdered By: Martina Lal on 10-12-2024 Erythrocyte distribution width (RBC) [Ratio] 13.2 % 11.6-14.6 [facility] Erythrocyte distribution wid th standard deviationOrdered By: Martina Lal on 10-12-2024 Erythrocyte distribution width (RBC) [Entitic vol] 43.7 fL 35.1-43.9 [facility] Erythrocyte distribution width (RBC) [Ratio] 43.7 fl 35.1-43.9 [facility] GFR/1.73 sq M.predicted malaika g non-blacks MDRD (S/P/Bld) [Vol rate/Area]Ordered By: Martina Lal on 10-12-2024 Estimated GFR (MDRD) Non-Af Amer 39 Low >60 [facility] Comment on above: mL/min/1.73m2 CKD-EP I Creatinine Equation (2020) Glomerular filtration rate ( GFR) estimation/1.73 sq m using serum, plasma, or whole bOrdered By: Martina Lal on 10-12-2024 GFR/1.73 sq M.predicted among non-blacks MDRD (S/P/Bld) [Vol rate/Area] 39 mL/min/{1.73_m2} Low >60 [facility] Comment on above: mL/min/1.73m2 CKD-EP I Creatinine Equation (2020) Glucose Ql (U)Ordered By: Pascual Lal on 10-12-2024 Urine Glucose (UA) Normal mg/dl Normal [facility] Hematocrit Auto (Bld) [Volum e fraction]Ordered By: Martina Lal on 10-12-2024 Hematocrit (Bld) [Volume fraction] 41.4 % 37-47 [facility] Hemoglobin measurementOrdere d By: Martina Lal on 10-12-2024 Hemoglobin (Bld) [Mass/Vol] 14.0 g/dL 12.0-15.0 [facility] Immature granulocytes/100 WB C Auto (Bld)Ordered By: Martina Lal on 10-12-2024 Immature granulocytes/100 WBC (Bld) 0.400 % 0.0-0.9 [facility] Comment on above: IG% - Immature Granu locytes (promyelocytes, myelocytes and metamyelocytes) > 1% indicates that a LEFT SHIFT is Present. Ketones Test strip Ql (U)Ord ered By: Martina Lal on 10-12-2024 Ketones Ql (U) Negative Negative [facility] L506.1001on 10-12-2024 Vitamin D 25-OH 63.5 ng/mL Normal 30-100 [facility] Comment on above: Order Comment: DR. Arti ANTHONY GETS RESULTS FOR CBCD,PROCRE URINE DR. FALLTS RESULTS FOR ALL OTHER LABS Result Comment: Swetha min D Status Deficiency: <20 ng/mL (50nmol/L) Insufficiency: 20-30 ng/mL (50-75 nmol/L) Sufficiency: 30-100 ng/mL (75-250 nmol/L) Toxicity: >100 ng/mL (>250 nmol/L) Performed By: #### L 501.4700, L501.9520, L501.0900, L506.1001, L501.2300, L500.4050, L100.0100, L502.0250, L500.4100, L400.2010 ####[facility] [address] [place], [place], [id number] LDL calc ser/plasOrdered By: Martina Lal on 10-12-2024 Cholesterol in LDL [Mass/Vol] 77 mg/dL [facility] Comment on above: Ynmthjuzdu=611-482 m g/dL & Higher Ramo=926 mg/dL or greater LDL Cholesterol, Calculated 77 mg/dL [facility] Comment on above: Ehzwtkokwz=919-640 m g/dL & Higher Scql=485 mg/dL or greater Laboratory - Chemistry and C hemistry - challengeOrdered By: Martina Lal on 10-12-2024 AST [Catalytic activity/Vol] 18 U/L <32 [facility] Lipid Profileon 10-12-2024 CHOL:HDL 3.00 Normal [facility] Comment on above: Order Comment: DR. Arti ANTHONY GETS RESULTS FOR CBCD,PROCRE URINE DR. WARNER RESULTS FOR ALL OTHER LABS Performed By: #### L 501.4700, L501.9520, L501.0900, L506.1001, L501.2300, L500.4050, L100.0100, L502.0250, L500.4100, L400.2010 ####[facility] [address] [place], [address] Cholesterol [Mass/Vol] 153 mg/dL Normal <=200 [facility] Comment on above: Order Comment: DR. Arti ANTHONY GETS RESULTS FOR CBCD,PROCRE URINE DR. FALLTS RESULTS FOR ALL OTHER LABS Result Comment: Chol esterol level, Desirable <200 mg/dL Borderline high cholesterol 200-239 mg/dL High cholesterol >=240 mg/dL Recommendations of the NCEP Adult Treatment Panel for the following risk-cutoff thresholds for the [place] population. Performed By: #### L 501.4700, L501.9520, L501.0900, L506.1001, L501.2300, L500.4050, L100.0100, L502.0250, L500.4100, L400.2010 ####[facility] [address] [place], [address] Cholesterol in HDL [Mass/Vol] 51 mg/dL Normal [facility] Comment on above: Order Comment: DR. Arti ANTHONY GETS RESULTS FOR CBCD,PROCRE URINE DR. WARNER RESULTS FOR ALL OTHER LABS Result Comment: Shabnam onal Cholesterol Education Program (NCEP) guidelines: <40 mg/dL: Low HDL-cholesterol (major risk factor for CHD) >= 60 mg/dL: High HDL-cholesterol (negative risk factor for CHD) HDL-cholesterol is affected by a number of factors, e.g. smoking, exercise, hormones, sex and age. Performed By: #### L 501.4700, L501.9520, L501.0900, L506.1001, L501.2300, L500.4050, L100.0100, L502.0250, L500.4100, L400.2010 ####[facility] [address] [place], [address] Cholesterol in LDL [Mass/Vol] 77 mg/dL Normal [facility] Comment on above: Order Comment: DR. Arti ANTHONY GETS RESULTS FOR CBCD,PROCRE URINE DR. WARNER RESULTS FOR ALL OTHER LABS Result Comment: Bord nfamke=293-258 mg/dL Higher Uvjh=256 mg/dL or greater Performed By: #### L 501.4700, L501.9520, L501.0900, L506.1001, L501.2300, L500.4050, L100.0100, L502.0250, L500.4100, L400.2010 ####[facility] [address] [place], [address] Cholesterol in VLDL [Mass/Vol] 25 mg/dL Normal 5-40 [facility] Comment on above: Order Comment: DR. Arti ANTHONY GETS RESULTS FOR CBCD,PROCRE URINE DR. WARNER RESULTS FOR ALL OTHER LABS Performed By: #### L 501.4700, L501.9520, L501.0900, L506.1001, L501.2300, L500.4050, L100.0100, L502.0250, L500.4100, L400.2010 ####[facility] [address] [place], [address] Triglyceride [Mass/Vol] 127 mg/dL Normal [facility] Comment on above: Order Comment: DR. Arti ANTHONY GETS RESULTS FOR CBCD,PROCRE URINE DR. WARNER RESULTS FOR ALL OTHER LABS Result Comment: The drugs N-Acetylcysteine and Metamizole may falsely depress this assay. Normal range: <150 mg/dL Borderline High: 150-199 mg/dL High: 200-499 mg/dL Very High: >500 mg/dL Performed By: #### L 501.4700, L501.9520, L501.0900, L506.1001, L501.2300, L500.4050, L100.0100, L502.0250, L500.4100, L400.2010 ####[facility] [address] [place], [address] Lymphocytes Auto (Unsp spec) [#/Vol]Ordered By: Martina Lal on 10-12-2024 Lymphocytes (Bld) [#/Vol] 2.50 10*3/uL 0.83-4.51 [facility] Lymphocytes/100 WBC Auto (Un sp spec)Ordered By: Martina Lal on 10-12-2024 Lymphocytes/100 WBC (Bld) 27.9 % 19-41 [facility] MCV (mean corpuscular volume ) determinationOrdered By: Martina Lal on 10-12-2024 MCV (RBC) [Entitic vol] 90.4 fL 81-99 [facility] Mean corpuscular hemoglobin (MCH) determinationOrdered By: Martina Lal on 10-12-2024 MCH (RBC) [Entitic mass] 30.6 pg 27.0-32.0 [facility] Mean corpuscular hemoglobin concentration (MCHC) determinationOrdered By: Martina Lal on 10-12-2024 MCHC (RBC) [Mass/Vol] 33.8 g/dL 32-36 [facility] Mean platelet volume determi nationOrdered By: Martina Lal on 10-12-2024 Platelet mean volume (Bld) [Entitic vol] 10.1 fL 6.2-12.0 [facility] Microalbumin/creat ratio urO rdered By: Martina Lal on 10-12-2024 Urine Microalbumin/Creatinine Ratio 404.6 mg/g CRE [facility] Monocyte percentageOrdered B y: Martina Lal on 10-12-2024 Monocytes/100 WBC (Bld) 11.8 % High 0-10 [facility] Neutrophil percentageOrdered By: Martina Lal on 10-12-2024 Neutrophils/100 WBC (Bld) 55.0 % 47-70 [facility] Nitrite Test strip Ql (U)Ord ered By: Martina Lal on 10-12-2024 Nitrite Ql (U) Negative Negative [facility] Nucleated red blood cell per centageOrdered By: Martina Lal on 10-12-2024 Nucleated RBC/100 WBC (Bld) [Ratio] 0 % 0-5 [facility] Phosphoruson 10-12-2024 Phosphate [Mass/Vol] 2.8 mg/dL Normal 2.7-4.5 [facility] Comment on above: Order Comment: DR. Arti ANTHONY GETS RESULTS FOR CBCD,PROCRE URINE DR. FALLTS RESULTS FOR ALL OTHER LABS Performed By: #### L 501.4700, L501.9520, L501.0900, L506.1001, L501.2300, L500.4050, L100.0100, L502.0250, L500.4100, L400.2010 ####[facility] [address] [place], [place], [address] Platelet countOrdered By: Pascual Lal on 10-12-2024 Platelets (Bld) [#/Vol] 264 10*3/uL 150-450 [facility] Potassium (Unsp spec) [Mass/ Vol]Ordered By: Martina Lal on 10-12-2024 Potassium [Moles/Vol] 4.6 mmol/L 3.3-5.1 [facility] Potassium measurement (mass/ volume)Ordered By: Martina Lal on 10-12-2024 Potassium (Unsp spec) [Mass/Vol] 4.6 mmol/L 3.3-5.1 [facility] Protein (U) [Mass/Vol]Ordere d By: Martina Lal on 10-12-2024 Urine Random Total Protein < 6.0 mg/dL 0.0-12.0 [facility] Protein Test strip Ql (U)Ord ered By: Martina Lal on 10-12-2024 Protein Ql (U) Negative Negative [facility] Protein+Creatinine Ratio,Uri neon 10-12-2024 PROT:CRE RATIO UNABLE TO CALCULATE Normal 0-200 [facility] Comment on above: Performed By: #### L 501.4700, L501.9520, L501.0900, L506.1001, L501.2300, L500.4050, L100.0100, L502.0250, L500.4100, L400.2010 ####[facility] [address] [place], [address] PROTEIN,UR.RAN. < 6.0 Normal 0.0-12.0 [facility] Comment on above: Performed By: #### L 501.4700, L501.9520, L501.0900, L506.1001, L501.2300, L500.4050, L100.0100, L502.0250, L500.4100, L400.2010 ####[facility] [address] [place], [address] UR CREAT 34.60 mg/dL Normal 28.00-217. 00 [facility] Comment on above: Performed By: #### L 501.4700, L501.9520, L501.0900, L506.1001, L501.2300, L500.4050, L100.0100, L502.0250, L500.4100, L400.2010 ####[facility] [address] [place], [address] Protein/Creatinine (U) [Mass ratio]Ordered By: Martina Lal on 10-12-2024 Urine Protein/Creatinine Ratio UNABLE TO CALCULATE mg/g CRE 0-200 [facility] RBC Auto (Bld) [#/Vol]Ordere d By: Martina Lal on 10-12-2024 RBC (Bld) [#/Vol] 4.58 10*6/uL 4.2-5.4 [facility] Random urine creatinine brian urement (mass/volume)Ordered By: Martina Lal on 10-12-2024 Creatinine Unsp time (U) [Mass/Vol] 34.60 mg/dL 28.00-217. 00 [facility] Screening total cholesterol/ high density lipoprotein (HDL) cholesterol ratioOrdered By: Martina Lal on 10-12-2024 Cholesterol.total/Choles terol in HDL [Mass ratio] 3.00 {ratio} [facility] Serum creatinine measurement (mass/volume)Ordered By: Martina Lal on 10-12-2024 Creatinine [Mass/Vol] 1.31 mg/dL High 0.70-1.20 [facility] Serum globulin measurementOr dered By: Martina Lal on 10-12-2024 Globulin (S) [Mass/Vol] 3.5 g/dL 2.2-4.2 [facility] Serum glucose measurement (m ass/volume)Ordered By: Martina Lal on 10-12-2024 Glucose [Mass/Vol] 121 mg/dL High 70-99 [facility] Serum or plasma alanine michaels otransferase (ALT) measurementOrdered By: Martina Lal on 10-12-2024 ALT [Catalytic activity/Vol] 19 U/L <35 [facility] Serum or plasma albumin brian urement (mass/volume)Ordered By: Martina Lal on 10-12-2024 Albumin [Mass/Vol] 3.7 g/dL 3.4-4.8 [facility] Serum or plasma albumin/glob ulin mass ratioOrdered By: Martina Lal on 10-12-2024 Albumin/Globulin [Mass ratio] 1.1 {ratio} 0.9-2.4 [facility] Serum or plasma alkaline ashley sphatase measurementOrdered By: Martina Lal on 10-12-2024 ALP [Catalytic activity/Vol] 78 U/L 35-104 [facility] Serum or plasma calcium brian urement (mass/volume)Ordered By: Martina Lal on 10-12-2024 Calcium [Mass/Vol] 10.2 mg/dL 7.6-11.0 [facility] Serum or plasma cholesterol in HDL measurement (mass/volume)Ordered By: Martina Lal on 10-12-2024 Cholesterol in HDL [Mass/Vol] 51 mg/dL >40 [facility] Comment on above: National Cholesterol Education Program (NCEP) guidelines:<40 mg/dL: Low HDL-cholesterol (major risk factor for CHD)>= 60 mg/dL: High HDL-cholesterol (negative risk factor for CHD)HDL-cholesterol is affected by a number of factors, e.g. smoking, exercise, hormones, sex and age. Serum or plasma cholesterol measurement (mass/volume)Ordered By: Martina Lal on 10-12-2024 Cholesterol [Mass/Vol] 153 mg/dL <201 [facility] Comment on above: Cholesterol level, D esirable <200 mg/dLBorderline high cholesterol 200-239 mg/dLHigh cholesterol >=240 mg/dLRecommendations of the NCEP Adult Treatment Panel for the following risk-cutoff thresholds for the [place] population. Serum or plasma urea nitroge n measurement (mass/volume)Ordered By: Martina Lal on 10-12-2024 Urea nitrogen [Mass/Vol] 31 mg/dL High 4-19 [facility] Serum phosphorus measurement Ordered By: Martina Lal on 10-12-2024 Phosphorus Level 2.8 mg/dL 2.7-4.5 [facility] Sodium levelOrdered By: Prisca Lal on 10-12-2024 Sodium [Moles/Vol] 139 mmol/L 133-145 [facility] TSH DL <= 0.005 mIU/L QnOrde red By: Martina Lal on 10-12-2024 Thyroid Stimulating Hormone (TSH) 2.580 uIU/mL 0.300-4.20 0 [facility] TSH Qn 2.580 uIU/mL 0.300-4.20 0 [facility] Thyroid Stim Hormone (TSH)on 10-12-2024 TSH 2.580 uIU/mL Normal 0.300-4.20 0 [facility] Comment on above: Order Comment: DR. Arti ANTHONY GETS RESULTS FOR CBCD,PROCRE URINE DR. FALLTS RESULTS FOR ALL OTHER LABS Performed By: #### L 501.4700, L501.9520, L501.0900, L506.1001, L501.2300, L500.4050, L100.0100, L502.0250, L500.4100, L400.2010 ####[facility] [address] [place], [place], [phone] Total proteinOrdered By: Emily Lal on 10-12-2024 Protein [Mass/Vol] 7.2 g/dL 5.9-8.4 [facility] Triglycerides measurementOrd ered By: Martina Lal on 10-12-2024 Triglyceride [Mass/Vol] 127 mg/dL <199 [facility] Comment on above: The drugs N-Acetylcy steine and Metamizole may falsely depress this assay. Normal range: <150 mg/dLBorderline High: 150-199 mg/dLHigh: 200-499 mg/dLVery High: >500 mg/dL Urinalysis, Routine (Dipstic k)on 10-12-2024 BILIRUBIN URINE Negative Normal Negative [facility] Comment on above: Order Comment: Urine , Random Performed By: #### L 501.4700, L501.9520, L501.0900, L506.1001, L501.2300, L500.4050, L100.0100, L502.0250, L500.4100, L400.2010 ####[facility] [address] [place], [address] Clarity (U) Clear Normal Clear [facility] Comment on above: Order Comment: Urine , Random Performed By: #### L 501.4700, L501.9520, L501.0900, L506.1001, L501.2300, L500.4050, L100.0100, L502.0250, L500.4100, L400.2010 ####[facility] [address] [place], [place], [phone] Color (U) Yellow Normal Yellow [facility] Comment on above: Order Comment: Urine , Random Performed By: #### L 501.4700, L501.9520, L501.0900, L506.1001, L501.2300, L500.4050, L100.0100, L502.0250, L500.4100, L400.2010 ####[facility] [address] [place], [place], [phone] GLUCOSE, UR Normal Normal Normal [facility] Comment on above: Order Comment: Urine , Random Performed By: #### L 501.4700, L501.9520, L501.0900, L506.1001, L501.2300, L500.4050, L100.0100, L502.0250, L500.4100, L400.2010 ####[facility] [address] [place], [place], [phone] KETONE UR Negative Normal Negative [facility] Comment on above: Order Comment: Urine , Random Performed By: #### L 501.4700, L501.9520, L501.0900, L506.1001, L501.2300, L500.4050, L100.0100, L502.0250, L500.4100, L400.2010 ####[facility] [address] [place], [place], [phone] LEUK ESTERASE 25 /ul Abnormal Negative [facility] Comment on above: Order Comment: Urine , Random Performed By: #### L 501.4700, L501.9520, L501.0900, L506.1001, L501.2300, L500.4050, L100.0100, L502.0250, L500.4100, L400.2010 ####[facility] [address] [place], [place], [phone] Nitrite Ql (U) Negative Normal Negative [facility] Comment on above: Order Comment: Urine , Random Performed By: #### L 501.4700, L501.9520, L501.0900, L506.1001, L501.2300, L500.4050, L100.0100, L502.0250, L500.4100, L400.2010 ####[facility] [address] [place], [address] OCCULT BLOOD-UR Negative Normal Negative [facility] Comment on above: Order Comment: Urine , Random Performed By: #### L 501.4700, L501.9520, L501.0900, L506.1001, L501.2300, L500.4050, L100.0100, L502.0250, L500.4100, L400.2010 ####[facility] [address] [place], [address] pH UR 7.0 Normal 5.0 - 8.0 [facility] Comment on above: Order Comment: Urine , Random Performed By: #### L 501.4700, L501.9520, L501.0900, L506.1001, L501.2300, L500.4050, L100.0100, L502.0250, L500.4100, L400.2010 ####[facility] [address] [place], [address] PROT DIPSTX Negative Normal Negative [facility] Comment on above: Order Comment: Urine , Random Performed By: #### L 501.4700, L501.9520, L501.0900, L506.1001, L501.2300, L500.4050, L100.0100, L502.0250, L500.4100, L400.2010 ####[facility] [address] [place], [address] SP.GR. DIPSTX 1.010 Normal 1.002-1.03 0 [facility] Comment on above: Order Comment: Urine , Random Performed By: #### L 501.4700, L501.9520, L501.0900, L506.1001, L501.2300, L500.4050, L100.0100, L502.0250, L500.4100, L400.2010 ####[facility] [address] [place], [place], [phone] UROBILI Normal Normal Normal [facility] Comment on above: Order Comment: Urine , Random Performed By: #### L 501.4700, L501.9520, L501.0900, L506.1001, L501.2300, L500.4050, L100.0100, L502.0250, L500.4100, L400.2010 ####[facility] [address] [place], [address] Urine albumin measurement wi detection limit of 20 mg/L or less (mass/volume)Ordered By: Martina Lal on 10-12-2024 Albumin DL <= 20 mg/L (U) [Mass/Vol] 14.0 mg/L NO RANGE EST. [facility] Urine blood detectionOrdered By: Martina Lal on 10-12-2024 Urine Occult Blood Negative Negative [facility] Urine clarityOrdered By: Emily Lal on 10-12-2024 Clarity (U) Clear Clear [facility] Urine color determinationOrd ered By: Martina Lal on 10-12-2024 Color (U) Yellow Yellow [facility] Urine glucose detectionOrder ed By: Martina Lal on 10-12-2024 Glucose Ql (U) Normal mg/dl Normal [facility] Urine leukocyte esterase det ection by dipstickOrdered By: Martina Lal on 10-12-2024 Leukocyte esterase Test strip Ql (U) 25 /ul High Negative [facility] Urine pHOrdered By: Martina Lal on 10-12-2024 pH (U) 7.0 [pH] 5.0 - 8.0 [facility] Urine protein measurement (m ass/volume)Ordered By: Martina Lal on 10-12-2024 Protein (U) [Mass/Vol] mg/dL 0.0-12.0 [facility] Urine protein/creatinine mas s ratioOrdered By: Martina Lal on 10-12-2024 Protein/Creatinine (U) [Mass ratio] UNABLE TO CALCULATE mg/g CRE 0-200 [facility] Urine specific gravity measu rementOrdered By: Martina Lal on 10-12-2024 Specific gravity (U) [Rel density] 1.010 1.002-1.03 0 [facility] Urine urobilinogen measureme ntOrdered By: Martina Lal on 10-12-2024 Urobilinogen Ql (U) Normal mg/dl Normal [facility] Urobilinogen Ql (U)Ordered B y: Martina Lal on 10-12-2024 Urine Urobilinogen Normal mg/dl Normal [facility] Vitamin D, 25-hydroxyOrdered By: Martina Lal on 10-12-2024 Vitamin D 25-Hydroxy 63.5 ng/mL 30-100 [facility] Comment on above: Vitamin D StatusDefi ciency: <20 ng/mL (50nmol/L)Insufficiency: 20-30 ng/mL (50-75 nmol/L)Sufficiency: 30-100 ng/mL (75-250 nmol/L)Toxicity: >100 ng/mL (>250 nmol/L) White blood cell (WBC) count Ordered By: Martina Lal on 10-12-2024 WBC (Bld) [#/Vol] 9.0 10*3/uL 4.4-11.0 [facility] Breast imaging reportOrdered By: Reid Hernandez on 10-08-2024 Study report [facility] Services [address] [place] [address] SCRN MAMM (CAD)W/ROBINSON BILAT MR#: [id number] Acct: [id number] Name: DEBBIE MIRELES Rep #: [id number] : 1935 F 89 From: Contreras Hernandez MD PCP: Dr. Martina Lal DO Status: RE G CLI Study:SCRN MAMM (CAD)W/ROBINSON BILAT Date of Exa m: 10/07/24 Exam# [id number] Ordering Dr: Saul Lal DO EXAM: SCRN MAMM (CAD)W/ROBINSON BILAT DATE: 10/07/2024 CLINICAL HISTORY: F, Age 89 y/o , SCRN MAMM (CAD)W/ROBINSON BILAT. Personal history right right lumpectomy. BREAST CANCER RISK ASSESSMENT: Not assessed. TECHNIQUE: Bilateral screening digital breast tomosynthesis with 2D and 3D images. Computeraided detection. COMPARISON: Prior exam(s) dated March 27, 2022.. FINDINGS: TISSUE DENSITY: The breast tissue is composed of scattered area of fibroglandular density. Bilateral Breast Mammographic Findings: No significant masses, calcifications or other abnormalities are identified. The patient is status post lumpectomy in the deep upper lateral aspect of the right breast with evidence of postoperative scarring. BI/SCRN MAMM (CAD)W/ROBINSON BILAT IMPRESSION: Right Breast: BIRADS 2 BENIGN FINDING. Left Breast: BIRADS 2 BENIGN FINDING. OVERALL FINAL ASSESSMENT: BIRADS 2 BENIGN FINDING RECOMMENDATION: Routine annual follow-up in 1 Year A letter with findings and recommendations will be mailed to the patient. Reading Location: [place] [address] CC: Dr. Martina Lal DO ~ Assistant Project Manager: Signed [facility] Abdomen without IV Contrasto n 10-07-2024 Abdomen without IV Contrast [facility] [address] [place] [address] Abdomen without IV Contrast MR#: [id number] Acct: [id number] Name: DEBBIE MIRELES Rep #: [id number] : 1935 F 89 From: Reid corea MD PCP: Dr. Martina Lal DO Status: REG CLI Study: Abdomen without IV Contrast Date of Exam: 09/19 Exam# [id number] Ordering Dr: Martina Lal DO PROCEDURE: ABDOMEN WITHOUT IV CONTRAST 10/07/2024 REASON FOR EXAM: History of adrenal mass. TECHNIQUE: Abdomen CT with intravenous contrast. Coronal and Sagittal reconstruction series were provided. One or more dose reduction techniques were used (e.g., Automated exposure control, adjustment of the mA and/or kV according to patient size, use of iterative reconstruction technique. PATIENT PREPARATION: Per protocol ORAL CONTRAST TYPE: None. CONTRAST: No IV contrast. RADIATION DOSE SUMMARY: CTDlvol: 22.49 mGy DLP: 840.78 mGycm COMPARISON: Comparison is made with prior study dated July 13, 2000 22. FINDINGS: Lung bases: Mild dependent atelectasis Liver: Normal size. No mass. Gallbladder: Surgically absent. Spleen: Normal size. Pancreas: Normal size without evidence of mass surrounding inflammation or ductal dilation. Adrenals: Left adrenal nodule consistent with an adenoma this measures 2.1 cm. This is unchanged. Kidneys: Stable marked atrophy of the left kidney. Stable cysts in the right kidney. Bowel: Sigmoid diverticulosis. Small hiatal hernia. Prior anterior ventral hernia repair with a mesh. Residual fat containing lower anterior abdominal wall hernia. Lymph nodes: Unremarkable. Vasculature: Diffuse atherosclerotic plaque formation of the abdominal aorta and the major visceral branches. Peritoneum / Retroperitoneum: Unremarkable. Bones: Degenerative changes of the spine. CT/Abdomen without IV Contrast IMPRESSION: Stable appearance of the left adrenal gland. Marked atrophy of the left kidney. Stable cysts in the right kidney. Status post cholecystectomy. Prior anterior abdominal hernia repair with a mesh with residual anterior lower abdominal wall fat containing hernia. Reading Location: [place] [address] CC: Dr. Martina Lal DO Assistant Project Manager: Signed Normal [facility] SCRN MAMM (CAD)W/ROBINSON BILATo n 10-07-2024 SCRN MAMM (CAD)W/ROBINSON BILAT [facility] Imaging Services [address] [place] [id number] SCRN MAMM (CAD)W/ROBINSON BILAT MR#: [id number] Acct: [id number] Name: DEBBIE MIRELES Rep #: [id number] : 1935 F 89 From: Reid corea MD PCP: Dr. Martina Lal DO Status: REG CL Study: SCRN MAMM (CAD)W/ROBINSON BILAT Date of Exam: 09/19 Exam# [id number] Ordering Dr: Martina Lal DO EXAM: SCRN MAMM (CAD)W/ROBINSON BILAT DATE: 10/07/2024 CLINICAL HISTORY: F, Age 89 y/o , SCRN MAMM (CAD)W/ROBINSON BILAT. Personal history right right lumpectomy. BREAST CANCER RISK ASSESSMENT: Not assessed. TECHNIQUE: Bilateral screening digital breast tomosynthesis with 2D and 3D images. Computer aided detection. COMPARISON: Prior exam(s) dated March 27, 2022.. FINDINGS: TISSUE DENSITY: The breast tissue is composed of scattered area of fibroglandular density. Bilateral Breast Mammographic Findings: No significant masses, calcifications or other abnormalities are identified. The patient is status post lumpectomy in the deep upper lateral aspect of the right breast with evidence of postoperative scarring. BI/SCRN MAMM (CAD)W/ROBINSON BILAT IMPRESSION: Right Breast: BIRADS 2 BENIGN FINDING. Left Breast: BIRADS 2 BENIGN FINDING. OVERALL FINAL ASSESSMENT: BIRADS 2 BENIGN FINDING RECOMMENDATION: Routine annual follow-up in 1 Year A letter with findings and recommendations will be mailed to the patient. Reading Location: [place] [address] CC: Dr. Martina Lal DO Assistant Project Manager: Signed Normal [facility] Cardiology Visit Reporton Cardiology Visit Report [facility] [place] [address] OFFICE VISIT Date of Service: 08/17/24 MR#: [id number] Acct: [id number] Name: DEBBIE MIRELES Rep #: [id number] : 1935 Provider: PADMINI Jean Baptiste Age/Sex: 89/F [place] [facility] [place]: Signed HPI HPI History of Present Illness Details: Patient 88-year-old white female that comes in today for cardiovascular monitoring. The patient carries a history of heart failure with preserved ejection fraction she reports she is doing fairly well in her home environment she denies any significant PND orthopnea she does have some bilateral lower extremity edema. She intermittently uses Lasix for this. Her primary complaint today is of a pimply type rash that occurs sporadically over her body. She has seen a organ fixer in it was felt that this was probably medication induced. She is requesting to stop losartan because she is read on the Internet that it can cause strokes and renal failure. She is also on an extensive list of jklv-wan-awmkoyr herbal and none herbal supplements. The patient denies any symptoms her last lipid profile showed her LDL was 126 she is not on statin therapy. She does have atherosclerotic disease with greater than 70% stenosis in the left internal carotid artery which is followed by Dr. Trimble. The patient has been intolerant of multiple medications including amlodipine hydralazine and clonidine. Her blood pressures historically been difficult to control and is probably the etiology of her heart failure. Intake Vital Signs 04/28/24 14:25 08/17/24 12:53 Height 5 ft 2 in 5 ft 2 in Weight: 222 lb BMI 40.6 BP 148/70 H Blood Pressure Location Lt brachial Position Sitting Respiration 18 Pulse 74 Pulse Source Monitor Pulse Oximetry (%) 96 Intake Visit Reasons: 3 M FU Wardrobe Mistress Required: No Is patient in pain?: No Allergies clonidine (From Catapres) Allergy (Intermediate, Verified 08/17/24 12:53) Topical Reaction to PATCH ONLY, pills ok morphine Adverse Reaction (Intermediate, Verified 08/17/24 12:53) mental status change meperidine HCl (From Demerol) Adverse Reaction (Mild, Verified 08/17/24 12:53) mental status change Medications ???Medication ???Instructions ???Recorded ???Confirmed ???Type latanoprost 0.005 % eye drops 1 drp EACH EYE QHS Cataracts/Dry 0 07/29/14 08/17/24 History (Xalatan) eye cholecalciferol (vitamin D3) 125 125 mcg PO DAILY SUPPLEMENT 08/17/24 History mcg (5,000 unit) capsule nateglinide 60 mg tablet 60 mg PO TID dm 07/13/22 08/17/24 History magnesium oxide 400 mg PO DAILY 03/03/23 08/17/24 History furosemide 40 mg tablet 40 mg PO DAILY #90 tabs 10/16/23 0 08/17/24 Rx aspirin 81 mg chewable tablet 81 mg PO DAILY HEART HEALTH 08/17/24 History calcium carbonate 500 mg PO DAILY 11/20/23 08/17/24 History potassium, sodium phosphates 280 1 packet PO QDAY 04/28/24 04/28/24 History mg-160 mg-250 mg oral powder packet (Phos-NaK) losartan 100 mg tablet 100 mg PO DAILY #90 tabs 05/03/24 08/17/24 Rx nifedipine 90 mg tablet,extended 90 mg PO QPM 06/01/24 08/17/24 His tory release dupilumab 200 mg/1.14 mL 200 mg subcut Q2W 08/17/24 5 History subcutaneous pen injector (Dupixent) rosuvastatin 5 mg tablet 5 mg PO QHS #90 tabs 08/17/2407/22 Rx Have you fallen in the past year?: No PFSH Medical History Obesity Left carotid artery stenosis (HFpEF) heart failure with preserved ejection fraction Hiatal hernia Nocturnal hypoxia Labile blood pressure FTT (failure to thrive) in adult ABDI (obstructive sleep apnea) Left adrenal mass Uncontrolled hypertension Shakiness Hypoxia Labile blood pressure Encounter for education Left adrenal mass Diastolic congestive heart failure Hypertension Diabetes mellitus Glaucoma Chronic kidney disease, stage 3a Debility HLD (hyperlipidemia) Stage 3a chronic kidney disease (CKD) Hypertension CHF (congestive heart failure) Breast abscess Wears hearing aid Wears glasses Arthritis History of IBS PONV (postoperative nausea and vomiting) Breast cancer, right breast ( 03/2022) Right flank pain Recurrent incisional hernia with incarceration BMI 40.0-44.9, adult Type 2 diabetes mellitus Hypoxia Bilateral carotid artery stenosis Hyperlipidemia GERD (gastroesophageal reflux disease) Bilateral extracranial carotid artery stenosis HTN (hypertension) Body aches Cough Malaise Surgical History History of colonoscopy History of right breast biopsy ( 03/2022) History of umbilical hernia repair History of cholecystectomy (more content not included)... Normal [facility] MR/BMS.Calvin 08-09-2024 MR/BMS.CIPRIANO [facility] [address] [place], [place] [address] OFFICE VISIT Date of Service: 08/09/24 MR#: [id number] Acct: [id number] Name: DEBBIE MIRELES Rep #: [id number] : 1935 Provider: Dr. Willy Trimble MD Age/Sex: 89/F Location: [facility] Status: Signed Intake Vital Signs 04/28/24 14:25 08/09/24 15:56 Height 5 ft 2 in Weight: 226 lb BP 144/60 H Blood Pressure Location Lt brachial Position Sitting Respiration 16 Pulse 80 Pulse Source Monitor Temp 97.8 F Temp Source Temporal Pulse Oximetry (%) 92 Oxygen Delivery Method room air Intake Visit Reasons: Discuss Scheduling CTA Chief Complaint: B/L carotid stenosis Is patient in pain?: Yes Allergies clonidine (From Catapres) Allergy (Intermediate, Verified 08/09/24 15:59) Topical Reaction to PATCH ONLY, pills ok morphine Adverse Reaction (Intermediate, Verified 08/09/24 15:59) mental status change meperidine HCl (From Demerol) Adverse Reaction (Mild, Verified 08/09/24 15:59) mental status change Is last menstrual period known: No Post menopausal: Yes Patient : No Have you fallen in the past year?: No PFSH Medical History Obesity Left carotid artery stenosis (HFpEF) heart failure with preserved ejection fraction Hiatal hernia Nocturnal hypoxia Labile blood pressure FTT (failure to thrive) in adult ABDI (obstructive sleep apnea) Left adrenal mass Uncontrolled hypertension Shakiness Hypoxia Labile blood pressure Encounter for education Left adrenal mass Diastolic congestive heart failure Hypertension Diabetes mellitus Glaucoma Chronic kidney disease, stage 3a Debility HLD (hyperlipidemia) Stage 3a chronic kidney disease (CKD) Hypertension CHF (congestive heart failure) Breast abscess Wears hearing aid Wears glasses Arthritis History of IBS PONV (postoperative nausea and vomiting) Breast cancer, right breast ( 03/2022) Right flank pain Recurrent incisional hernia with incarceration BMI 40.0-44.9, adult Type 2 diabetes mellitus Hypoxia Bilateral carotid artery stenosis Hyperlipidemia GERD (gastroesophageal reflux disease) Bilateral extracranial carotid artery stenosis HTN (hypertension) Body aches Cough Malaise Surgical History History of colonoscopy History of right breast biopsy ( 03/2022) History of umbilical hernia repair History of cholecystectomy History of hysterectomy History of cataract extraction Family History Brother Pancreatic cancer Diabetes Heart disease Lung cancer Hypertension Colon cancer Mother Hypertension Brother No problems noted. 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 housing: house Smoking Status: Never smoker alcohol intake: never substance use type: does not use what type of physical activity do you participate in: none seatbelt use: always do you feel safe at home: Yes HPI HPI HPI: DEBBIE MIRELES, is a 89 F who presents to the office today for further discussions of her carotid stenosis. She has been followed with serial duplex with velocities that had been gradually increasing. We had attempted to obtain CTA and she was very difficult to obtain IV access and imaging was postponed. Her two most recent duplex results have been stable with PSV in the 260-270 range. She denies numbness/weakness/vis ion loss/speech difficulty. ROS General General: Yes weight change and weakness; No appetite, fatigue, colon cancer or breast cancer HEENT HEENT: No difficulty swallowing, eye injury, eye surgery, swollen glands or hoarseness Endo Endocrine: Yes diabetes mellitus; No thyroid disease, thyroid cancer, Hair loss, heat intolerance or cold intolerance Skin Skin: Yes rash; No changing moles Musc Musculoskeletal: Yes back problems, arthritis and joint pain; No rheumatoid arthritis or gout Cardio Cardiovascular: Yes heart disease, high blood pressure and shortness of breat with exertion; No murmur, pacemaker, atrial fibrillation, heart attack, heart stent, palpitations or chest pain Psych Psychiatric: No depression, anxiety or hearing voices Resp Respiratory: No shortness of breath, Yes sleep apnea, No cough, No COPD, No asthma, No emphysema and No wheezing Gastro Gastrointestinal: No abdominal pain, No nausea or vomiting, No diarrhea, No constipation, No blood in stool, No acid reflux, No hemorrhoids, No ulcers, No gallbladder problem and No black,tarry stools Star Hematologic: Yes blood t (more content not included)... Normal [facility] PT D/C Summary (1)on 024 PT D/C Summary (1) [facility] Physical Therapy [facility] [address] [place] [address]. [address] [place] [address] / REHABILITATION SERVICES DISCHARGE SUMMARY MR#: [id number] Acct: [id number] Name: DEBBIE MIRELES Rep #: [id number] : 1935 88 From: Willy BESTT, OCS, CSCS Referring Dr.: Dr. Tamra Francis MD Status: REG RCR Insurance: [facility] 05/21/18 SELF PAY INSURANCE Discharge Summary D/C summary: It has been my pleasure to treat DEBBIE MIRELES referred by Dr. Tamra Francis MD, with the diagnosis of Back pain for a total of 10 visit(s). Discharge Date: 07/01/24 Please see the following information for a summary of their discharge status. Subjective Subjective: First week felt OK but then got some pain. Getting some R Leg cramping and pain in addition to back pain. Doing home exercises daily 2-3x10. they are tolerable and needs to rest. Pain to 9/10 in LB and R leg. Using MH at home. Using cane to get around. Considering RFA and getting injections for that. Dtr said she is disciplined with her home ex. Pain LBP: Pain Intensity (Out of 10): 2 Overall Improvement % Improvement: 0 Objective Objective/Function: extension in LB very painful R side as is R SB, flexion is slow but not painful, L SB is good. Walking with cane mod I. Goals Goal 1:: LB pain 75% better adn 2/10 at worst in am Goal Progress: Not Progressing Goal 2:: I appropriate HEP to limit future problems Goal Progress: Goal Met Goal 3:: Walk confidently without hesitation getting up from chair. Goal Progress: Goal Met Goal 4:: 10 or less oswestry Goal Progress: Not Progressing Plan Plan: d/c, pt to Dr. Francis today and aquatic therapy should be considered after RFA if appropriate. D/C Information Discharge Comments: No progress with pain and will see Tito today and continue HEP. d/c sentence: If there are questions or concerns regarding this patient's physical therapy, please feel free to call me at [phone]. Thank you for the referral of this patient. Sincerely, Willy aVnce, NASIRT, OCS, CSCS Balance/Gait/Function al tests Balance/Special Test Scores Oswestry Low Back Score: 15 Improvement % Improvement: 0 07/01/24 7719 CC: Dr. Tamra Francis MD; Dr. Martina Lal DO EBG Signed Normal [facility] Inital Evaluation (1) - PTon 05-18-2024 Inital Evaluation (1) - PT [facility] Physical Therapy [facility] [address] [facility] [place] [address] / REHABILITATION SERVICES INITIAL EVALUATION MR#: [id number] Acct: [id number] Name: DEBBIE MIRELES Rep #: [id number] : 1935 88 From: Willy Vance DPT, OCS, CSCS Referring Dr.: Dr. Tamra Francis MD Status: REG RCR Insurance: [facility] 05/21/18 SELF PAY INSURANCE Patient's Visit Information Visit Information Visit Information: DEBBIE MIRELES is a 88 year old F referred to Physical Therapy by Dr. Tamra Francis MD with a diagnosis of Back pain. Date of Evaluation: 05/18/24 Physical Therapist: Willy Vance DPT, OCS, CSCS Visit Plan Frequency: 2x /Week Duration: 4-6 Weeks Plan: 2x/week for 4 weeks for 1. Teach and progress HEP of back ROM sitting and hook lying as tolerated progress to HEP 2. core strength and activity progressing to HEP, general strength and activity progress to HEP Can do STM and MH if needed. Subjective Subjective: Has back pain coming around R side. Wrose in am and at night getting out of bed. Uses walker at night and when first gets up. 03/30 when lets go of walker to sit on toilet in am. Lukasz sent to [facility], he has given injections in back which did not help much. Gave gabapentin but not taking due to risks. 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 As she gets going during the day it gets better to intermittient, stiff and OA, Twisting and turning or sitting too long and getting up make it worse later in day. Will have RFA today injection at 1:30. Sleeping is not too bad. Stays up late to minimize bathroom trips. No regular exercises. Lives alone and sews alot. Cooks alot and stands and needs to sit frequently. Gets tired and sore and needs frequent rests. Dresses, bathroom self, Girl mows yard for her and cleans house 1x per month. Walk in shower. No falls but is very careful, uses cane during day but walker in am. Does not need it in the house. Pain LBP: Pain Intensity (Out of 10): 0 Pain Intensity Range: 0 and 10 Objective Objective: Wallks with cane , stiff and slow but mod I, Trasnfers slowlky with UE I. bed trasnfer is painful with back pain until legs bent. Walking is hunched overand forward stooped about 15 degrees. Lb aROM is ext max limited with pain, flexion mod limited, SB mod llimitations. Very stiff. Hip AROM ext 0, abd 20 and flexion 90 no pain. Knee and ankles WFL. reflexes 2/3 patella adn achilles. Sensation LE WNL to gross light touch. strength in hips is , knees 3+ and quad pain on R, ankles 4/5 - slump, - SLR. Balance/Special Test Scores Oswestry Low Back Score: 16 Goals Goal 1:: LB pain 75% better adn 2/10 at worst in am Goal Time Frame: 4-6 Weeks Goal 2:: I appropriate HEP to limit future problems Goal Time Frame: 4-6 Weeks Goal 3:: Walk confidently without hesitation getting up from chair. Goal Time Frame: 4-6 Weeks Goal 4:: 10 or less oswestry Goal Time Frame: 4-6 Weeks Rehabilitation Potential Physical Therapy Diagnosis: back pain and stiffness from degeneration limiting comfortable funciton. Rehabilitation Potential: Fair Anticipated Interventions Patient/Client Instruction: Educate patient on: Condition and Plan of Care For the Purpose of:: To decrease pain, To increase ROM, To improve nutrient delivery to tissue and To improve muscle performance and motor function Therapeutic Exercise to Include: Strength training, Flexibilty training, Passive ROM, Active ROM and Dynamic Lumbar Stabilization For the Purpose of:: To decrease pain, To increase ROM, To improve nutrient delivery to tissue and To improve muscle performance and motor function Manual Therapy Techniques to Include: Mobilization and Soft tissue mobilization For the Purpose of:: To decrease pain and To increase ROM Thermo therapy (hot pack): Yes For the Purpose of:: To decrease pain, To increase ROM and To improve nutrient delivery to tissue Text: Thank you for the opportunity to evaluate your patient. For Medicare and Medicare HMO plans, please review the plan of care and approve it. It will need to be FAXED BACK to us at [phone] for Medicare purposes. For Medicare only, by signing this I certify the plan of care. Please let me know if there are questions or concerns regarding this plan of care. Physician Signature: Date : 05/18/24 1231 CC: Dr. Tamra Francis MD; Dr. Martina Lal DO EBG Signed Normal [facility] Carotid Duplex Ultrasoundon 04-30-2024 Carotid Duplex Ultrasound [facility] [address] [place] [address] Carotid Duplex Ultrasound 04/30/24 0956 MR#: [id number] Acct: [id number] Name: DEBBIE MIRELES Rep #: [id number] : 1935 88 From: Willy Trimble MD Attending Dr: Dr. Wlily Trimble MD Status: REG C Ordering Dr: Willy Trimble MD Date: 04/30/24 Location: [facility] Sex: F C Admitted: Reason For Study: Carotid Stenosis Rt. Velocities/BP Lt. Velocities/BP Prox CCA 83.9/12.6 cm/sec. Prox CCA 83.9/11.4 cm/sec. Mid CCA 91.2/12.6 cm/sec. Mid CCA 75.3/11.4 cm/sec. Dist CCA 79.0/15.1 cm/sec. Dist CCA 53.2/9.0 cm/sec. Prox ICA 106.0/15.1 cm/sec. Prox ICA 260.5/53.7 cm/sec. Mid ICA 82.6/13.9 cm/sec. Mid ICA 218.5/24.1 cm/sec. Dist ICA 101.1/20.0 cm/sec. Dist ICA 150.3/18.8 cm/sec. Rt. ICA/CCA = 1.2. Lt. ICA/CCA = 3.5. Prox ECA 417.1/12.9 cm/sec. Prox ECA 723.7/24.5 cm/sec. Rt. Vert. 56.9/10.2 cm/sec. Lt. Vert. 39.3/7.2 cm/sec. Right Extracranial There is intimal thickening but no significant atherosclerotic plaque noted in the right common carotid artery. There is heterogeneous, irregular atherosclerotic plaque noted in the right internal [...] the left vertebral artery. Procedure Carotid Duplex 47964. This is a Carotid Duplex examination using B-mode, color flow and specral Doppler. The exam was diagnostic. Exam performed in department. VL/Carotid Duplex Ultrasound Interpretation Summary Mild (<50%) stenosis right extracranial internal carotid. Severe (>70%) stenosis left extracranial internal carotid. Patent and antegrade vertebrals bilaterally. Ordering Physician: Willy Trimble Referring Physician: Martina Lal M.D. Performed By: George Rader, T 05/03/24 0759 Date Willy Trimble MD CC: Dr. Willy Trimble MD; Dr. Martina Lal, DO Date Dictated: 04/30/2456 Date Transcribed: 05/03/24 5149 Assistant Project Manager: Signed Normal [facility] Cardiology Visit Reporton Cardiology Visit Report [facility] [address] [place] [address] OFFICE VISIT Date of Service: 04/28/24 MR#: [id number] Acct: [id number] Name: DEBBIE MIRELES Rep #: [id number] : 1935 Provider: Dr. Felice ji MD Age/Sex: 88/F Location: [facility] Status: Signed HPI HPI History of Present Illness Details: Patient 88-year-old white female that comes in today for cardiovascular monitoring. The patient carries a history of heart failure with preserved ejection fraction she reports she is doing fairly well in her home environment she denies any significant PND orthopnea she does have some bilateral lower extremity edema. She intermittently uses Lasix for this. Her primary complaint today is of a pimply type rash that occurs sporadically over her body. She has seen a organ fixer in it was felt that this was probably medication induced. She is requesting to stop losartan because she is read on the Internet that it can cause strokes and renal failure. She is also on an extensive list of [id number] herbal and none herbal supplements. The patient denies any symptoms her last lipid profile showed her LDL was 126 she is not on statin therapy. She does have atherosclerotic disease with greater than 70% stenosis in the left internal carotid artery which is followed by Dr. Trimble. The patient has been intolerant of multiple medications including amlodipine hydralazine and clonidine. Her blood pressures historically been difficult to control and is probably the etiology of her heart failure. Intake Vital Signs 03/17/24 08:11 04/28/24 14:25 Height 5 ft 2 in 5 ft 2 in Weight: 217 lb 220 lb BMI 39.6 40.2 BP 182/71 H 156/66 H Blood Pressure Location Lt brachial Lt brachial Position Sitting Sitting Respiration 20 H 18 Pulse 68 76 Pulse Source Monitor Monitor Temp 96.2 F L Temperature Source Temporal Artery Pulse Oximetry (%) 96 94 Oxygen Delivery Method room air room air Intake Visit Reasons: 6 M FU Wardrobe Mistress Required: No Accompanied by: Self Is patient in pain?: No Allergies clonidine (From Catapres) Allergy (Intermediate, Verified 04/28/24 14:25) Topical Reaction to PATCH ONLY, pills ok morphine Adverse Reaction (Intermediate, Verified 04/28/24 14:25) mental status change meperidine HCl (From Demerol) Adverse Reaction (Mild, Verified 04/28/24 14:25) mental status change Medications ???Medication ???Instructions ???Recorded ???Confirmed ???Type latanoprost 0.005 % eye drops 1 drp EACH EYE QHS Cataracts/Dry 07/29/14 04/28/24 History (Xalatan) eye cholecalciferol (vitamin D3) 125 125 mcg PO DAILY SUPPLEMENT 04/01/22 04/28/24 History mcg (5,000 unit) capsule cinnamon bark 500 mg capsule 500 mg PO DAILY SUPPLEMENT 06/11/22 04/28/24 History (Cinnamon) acetaminophen 500 mg tablet 1,000 mg PO Q6H PRN Pain 07/02/22 04/28/24 History ascorbic acid (vitamin C) 500 mg 500 mg PO BID supplement 07/02/22 04/28/24 History tablet nateglinide 60 mg tablet 60 mg PO TID dm 07/13/22 04/28/24 History Andrographis xt 187.5 mg-Isatis 1 cap PO DAILY 03/03/23 04/28/24 History root 150 mg-licorice 79.2 mg capsule grape seed extract 50 mg capsule 50 mg PO ONCE 03/03/23 04/28/24 History magnesium oxide 400 mg PO DAILY 03/03/23 04/28/24 History omega-3 fatty acids-fish oil 300 1 cap PO DAILY SUPPLEMENT 03/03/23 04/28/24 History mg-1,000 mg capsule berberine-herbal comb no.18 capsule cap PO 04/08/23 04/28/24 History curcumin-phosphatidyl choline 500 mg PO 04/08/23 04/28/24 History mg capsule losartan 100 mg tablet 100 mg PO DAILY #90 tabs 07/08/23 04/28/24 Rx furosemide 40 mg tablet 40 mg PO DAILY #90 tabs 10/16/23 04/28/24 Rx nifedipine 90 mg tablet,extended 90 mg PO DAILY #90 tabs 10/16/23 04/28/24 Rx release artery cleanse 1 cap PO DAILY 11/20/23 04/28/24 History aspirin 81 mg chewable tablet 81 mg PO DAILY HEART HEALTH 11/20/23 04/28/24 History calcium carbonate 500 mg PO DAILY 11/20/23 04/28/24 History circu max gold powder 1 tbsp PO DAILY 11/20/23 04/28/24 History Colloidal Silver 1 tsp PO DAILY SUPPLEMENT 03/17/24 04/28/24 History cardio [place]well PO 04/28/24 04/28/24 History carvedilol 12.5 mg tablet (Coreg) 12.5 mg PO BID #60 tabs 04/28/24 04/28/24 Rx potassium, sodium phosphates 280 1 packet PO QDAY 04/28/24 04/28/24 History mg-160 mg-250 mg oral powder packet (Phos-NaK) Have you fallen in the past year?: No [facility] Medical History Obesity Left carotid artery stenosis (HFpEF) heart failure with preserved ejection fraction Hiatal hernia Nocturnal hypoxia Labile blood pressure FTT (failure to thrive) in adult ABDI (obstructive sleep apnea) Left adrenal mass Uncontrolled hyperten (more content not included)... Normal [facility] CBC W/Diff, Automatedon 02-20 Absolute Lymph 2.20 X10 3/uL Normal 0.83-4.51 [facility] Comment on above: Performed By: #### L 100.0100, L500.4050, L502.0250, L500.4100, L501.9520, L400.0001, L506.1000 #### [facility] Laboratory [address] [place], [place], [id number] Absolute Neut 5.2 X10 3/uL Normal 2.0-7.7 [facility] Comment on above: Performed By: #### L 100.0100, L500.4050, L502.0250, L500.4100, L501.9520, L400.0001, L506.1000 #### [facility] [address] [place], [address] Basophils/100 WBC (Bld) 0.6 % Normal 0-1 [facility] Comment on above: Performed By: #### L 100.0100, L500.4050, L502.0250, L500.4100, L501.9520, L400.0001, L506.1000 #### [facility] [address] [place], [address] Eosinophils/100 WBC (Bld) 1.7 % Normal 0-5 [facility] Comment on above: Performed By: #### L 100.0100, L500.4050, L502.0250, L500.4100, L501.9520, L400.0001, L506.1000 #### [facility] [address] [place], [address] Erythrocyte distribution width (RBC) [Ratio] 14.4 % Normal 11.6-14.6 [facility] Comment on above: Performed By: #### L 100.0100, L500.4050, L502.0250, L500.4100, L501.9520, L400.0001, L506.1000 #### [facility] [address] [place], [address] Hematocrit (Bld) [Volume fraction] 38.8 % Normal 37-47 [facility] Comment on above: Performed By: #### L 100.0100, L500.4050, L502.0250, L500.4100, L501.9520, L400.0001, L506.1000 #### [facility] [address] [place], [address] Hemoglobin (Bld) [Mass/Vol] 12.9 g/dL Normal 12.0-15.0 [facility] Comment on above: Performed By: #### L 100.0100, L500.4050, L502.0250, L500.4100, L501.9520, L400.0001, L506.1000 #### [facility] [address] [place], [address] IG% 0.400 Normal 0.0-0.9 [facility] Comment on above: Result Comment: IG% - Immature Granulocytes (promyelocytes, myelocytes and metamyelocytes) > 1% indicates that a LEFT SHIFT is Present. Performed By: #### L 100.0100, L500.4050, L502.0250, L500.4100, L501.9520, L400.0001, L506.1000 #### [facility] [address] [place], [address] Lymphocytes/100 WBC (Bld) 26.5 % Normal 19-41 [facility] Comment on above: Performed By: #### L 100.0100, L500.4050, L502.0250, L500.4100, L501.9520, L400.0001, L506.1000 #### [facility] [address] [place], [address] MCH (RBC) [Entitic mass] 29.3 pg Normal 27.0-32.0 [facility] Comment on above: Performed By: #### L 100.0100, L500.4050, L502.0250, L500.4100, L501.9520, L400.0001, L506.1000 #### [facility] [address] [place], [address] MCHC (RBC) [Mass/Vol] 33.2 g/dL Normal 32-36 [facility] Comment on above: Performed By: #### L 100.0100, L500.4050, L502.0250, L500.4100, L501.9520, L400.0001, L506.1000 #### [facility] [address] [place], [address] MCV (RBC) [Entitic vol] 88.0 fL Normal 81-99 [facility] Comment on above: Performed By: #### L 100.0100, L500.4050, L502.0250, L500.4100, L501.9520, L400.0001, L506.1000 #### [facility] [address] [place], [address] Monocytes/100 WBC (Bld) 7.9 % Normal 0-10 [facility] Comment on above: Performed By: #### L 100.0100, L500.4050, L502.0250, L500.4100, L501.9520, L400.0001, L506.1000 #### [facility] [address] [place], [address] Neutrophils/100 WBC (Bld) 62.9 % Normal 47-70 [facility] Comment on above: Performed By: #### L 100.0100, L500.4050, L502.0250, L500.4100, L501.9520, L400.0001, L506.1000 #### [facility] [address] [place], [address] Nucleated RBC (Bld) [#/Vol] 0 10*3/uL Normal 0-5 [facility] Comment on above: Performed By: #### L 100.0100, L500.4050, L502.0250, L500.4100, L501.9520, L400.0001, L506.1000 #### [facility] [address] [place], [address] Platelet mean volume (Bld) [Entitic vol] 10.0 fL Normal 6.2-12.0 [facility] Comment on above: Performed By: #### L 100.0100, L500.4050, L502.0250, L500.4100, L501.9520, L400.0001, L506.1000 #### [facility] [address] [place], [address] Platelets (Bld) [#/Vol] 291 10*3/uL Normal 150-450 [facility] Comment on above: Performed By: #### L 100.0100, L500.4050, L502.0250, L500.4100, L501.9520, L400.0001, L506.1000 #### [facility] [address] [place], [address] RBC (Bld) [#/Vol] 4.41 10*6/uL Normal 4.2-5.4 [facility] Comment on above: Performed By: #### L 100.0100, L500.4050, L502.0250, L500.4100, L501.9520, L400.0001, L506.1000 #### [facility] [address] [place], [address] RDW SD 46.6 fl High 35.1-43.9 [facility] Comment on above: Performed By: #### L 100.0100, L500.4050, L502.0250, L500.4100, L501.9520, L400.0001, L506.1000 #### [facility] [address] [place], [address] WBC (Bld) [#/Vol] 8.3 10*3/uL Normal 4.4-11.0 [facility] Comment on above: Performed By: #### L 100.0100, L500.4050, L502.0250, L500.4100, L501.9520, L400.0001, L506.1000 #### [facility] [address] [place], [address] Comprehensive Metabolic Prof [facility] 03-19-2024 Albumin [Mass/Vol] 3.0 g/dL Low 3.2-5.0 [facility] Comment on above: Performed By: #### L 100.0100, L500.4050, L502.0250, L500.4100, L501.9520, L400.0001, L506.1000 #### [facility] [address] [place], [address] Albumin/Globulin [Mass ratio] 0.8 {ratio} Low 0.9-2.4 [facility] Comment on above: Performed By: #### L 100.0100, L500.4050, L502.0250, L500.4100, L501.9520, L400.0001, L506.1000 #### [facility] [address] [place], [address] ALK P 75 U/L Normal 45-117 [facility] Comment on above: Performed By: #### L 100.0100, L500.4050, L502.0250, L500.4100, L501.9520, L400.0001, L506.1000 #### [facility] [address] [place], [address] ALT [Catalytic activity/Vol] 21 U/L Normal 13-56 [facility] Comment on above: Performed By: #### L 100.0100, L500.4050, L502.0250, L500.4100, L501.9520, L400.0001, L506.1000 #### [facility] [address] [place], [address] AST [Catalytic activity/Vol] 15 U/L Normal 15-37 [facility] Comment on above: Performed By: #### L 100.0100, L500.4050, L502.0250, L500.4100, L501.9520, L400.0001, L506.1000 #### [facility] [address] [place], [address] Bilirubin [Mass/Vol] 0.80 mg/dL Normal 0.20-1.00 [facility] Comment on above: Result Comment: For patients on eltrombopag therapy, use of [place] TBIL is not recommended. Performed By: #### L 100.0100, L500.4050, L502.0250, L500.4100, L501.9520, L400.0001, L506.1000 #### [facility] [address] [place], [address] BUN/CRE 30.9 RATIO High 10-20 [facility] Comment on above: Performed By: #### L 100.0100, L500.4050, L502.0250, L500.4100, L501.9520, L400.0001, L506.1000 #### [facility] [address] [place], [address] CA,Total 10.1 mg/dL Normal 8.5-10.1 [facility] Comment on above: Performed By: #### L 100.0100, L500.4050, L502.0250, L500.4100, L501.9520, L400.0001, L506.1000 #### [facility] [address] [place], [address] Chloride [Moles/Vol] 109 mmol/L High 98-107 [facility] Comment on above: Performed By: #### L 100.0100, L500.4050, L502.0250, L500.4100, L501.9520, L400.0001, L506.1000 #### [facility] [address] [place], [address] CO2 [Moles/Vol] 24.0 mmol/L Normal 21.0-32.0 [facility] Comment on above: Performed By: #### L 100.0100, L500.4050, L502.0250, L500.4100, L501.9520, L400.0001, L506.1000 #### [facility] [address] [place], [address] Creatinine [Mass/Vol] 1.23 mg/dL High 0.55-1.02 [facility] Comment on above: Result Comment: The validity of the calculated GFR GFRAA in patients over 70 years has not been determined. Clinical correlation is essential. Performed By: #### L 100.0100, L500.4050, L502.0250, L500.4100, L501.9520, L400.0001, L506.1000 #### [facility] [address] [place], [address] EST GFR - AA 53 mL/min Low >60 [facility] Comment on above: Result Comment: Afri can [place] GFR Calc Performed By: #### L 100.0100, L500.4050, L502.0250, L500.4100, L501.9520, L400.0001, L506.1000 #### [facility] [address] [place], [address] GAP 5 Normal 5-15 [facility] Comment on above: Performed By: #### L 100.0100, L500.4050, L502.0250, L500.4100, L501.9520, L400.0001, L506.1000 #### [facility] [address] [place], [address] GFR/1.73 sq M.predicted among non-blacks MDRD (S/P/Bld) [Vol rate/Area] 44 mL/min/{1.73_m2} Low >60 [facility] [place] Comment on above: Result Comment: Non- GFR Calc Performed By: #### L 100.0100, L500.4050, L502.0250, L500.4100, L501.9520, L400.0001, L506.1000 #### [facility] [place] [facility] [address] [place], [address] Globulin (S) [Mass/Vol] 4.0 g/dL Normal 2.2-4.2 [facility] Comment on above: Performed By: #### L 100.0100, L500.4050, L502.0250, L500.4100, L501.9520, L400.0001, L506.1000 #### [facility] [place] [facility] [address] [place], [address] Glucose [Mass/Vol] 104 mg/dL Normal 74-106 [facility] Comment on above: Result Comment: Fast ing Glucose result from 100 to 125 mg/dL suggests IMPAIRED HOMEOSTASIS per A.D.A. criteria. Performed By: #### L 100.0100, L500.4050, L502.0250, L500.4100, L501.9520, L400.0001, L506.1000 #### [facility] [place] [facility] [address] [place], [address] Potassium [Moles/Vol] 4.6 mmol/L Normal 3.5-5.1 [facility] Comment on above: Performed By: #### L 100.0100, L500.4050, L502.0250, L500.4100, L501.9520, L400.0001, L506.1000 #### [facility] [place] [facility] [address] [place], [address] Sodium [Moles/Vol] 138 mmol/L Normal 136-145 [facility] Comment on above: Performed By: #### L 100.0100, L500.4050, L502.0250, L500.4100, L501.9520, L400.0001, L506.1000 #### [facility] [place] [facility] [address] [place], [address] T PROT 7.0 g/dL Normal 6.4-8.2 [facility] [place] Comment on above: Performed By: #### L 100.0100, L500.4050, L502.0250, L500.4100, L501.9520, L400.0001, L506.1000 #### [facility] [place] [facility] [address] [place], [address] Urea nitrogen [Mass/Vol] 38 mg/dL High 7-18 [facility] [place] Comment on above: Performed By: #### L 100.0100, L500.4050, L502.0250, L500.4100, L501.9520, L400.0001, L506.1000 #### [facility] [place] [facility] [address] [place], [address] Lipid Profileon 03-19-2024 Cholesterol [Mass/Vol] 203 mg/dL High 200 [facility] Comment on above: Result Comment: <200 mg/dL Desirable 200-240 mg/dL Borderline >240 mg/dL High Risk Performed By: #### L 100.0100, L500.4050, L502.0250, L500.4100, L501.9520, L400.0001, L506.1000 ####[facility] [place] [address] [place], [address] Cholesterol in HDL [Mass/Vol] 58 mg/dL Normal [facility] [place] Comment on above: Result Comment: The drugs N-Acetylcysteine and Metamizole may falsely depress this assay. Reference Range HDL <40 mg/dL Low HDL Cholesterol HDL >or= 60 mg/dL High HDL Cholesterol Performed By: #### L 100.0100, L500.4050, L502.0250, L500.4100, L501.9520, L400.0001, L506.1000 ####[facility] [place] [address] [place], [address] Cholesterol in LDL [Mass/Vol] 126 mg/dL Normal 0-130 [facility] [place] Comment on above: Performed By: #### L 100.0100, L500.4050, L502.0250, L500.4100, L501.9520, L400.0001, L506.1000 ####[facility] [place] [address] [place], [address] Cholesterol in VLDL [Mass/Vol] 19 mg/dL Normal 5-40 [facility] [place] Comment on above: Performed By: #### L 100.0100, L500.4050, L502.0250, L500.4100, L501.9520, L400.0001, L506.1000 ####[facility] [place] [address] [place], [address] Triglyceride [Mass/Vol] 93 mg/dL Normal [facility] Comment on above: Result Comment: The drugs N-Acetylcysteine and Metamizole may falsely depress this assay. Serum Triglycerides Reference Interval Normal <150 mg/dL Borderline high 150 - 199 mg/dL High 200 - 499 mg/dL Very High > or = 500 mg/dL Performed By: #### L 100.0100, L500.4050, L502.0250, L500.4100, L501.9520, L400.0001, L506.1000 ####[facility] [place] [address] [place], [address] Microalb:Creat Ratio,Random URon 03-19-2024 Creatinine [Mass/Vol] 47.40 mg/dL Normal NO RAN GE EST. [facility] [place] Comment on above: Performed By: #### L 100.0100, L500.4050, L502.0250, L500.4100, L501.9520, L400.0001, L506.1000 #### [facility] [place] [facility] [address] [place], [address] MALB:CRE 104.2 mg/g CRE High <30 mg/g CRE [facility] [place] Comment on above: Performed By: #### L 100.0100, L500.4050, L502.0250, L500.4100, L501.9520, L400.0001, L506.1000 #### [facility] [place] [facility] [address] [place], [address] MICROALBUMIN,UR 49.4 mg/L Normal NO RANGE EST. [facility] [place] Comment on above: Performed By: #### L 100.0100, L500.4050, L502.0250, L500.4100, L501.9520, L400.0001, L506.1000 #### [facility] [place] [facility] [address] [place], [address] Thyroid Stim Hormone (TSH)on 03-19-2024 TSH 2.170 uIU/mL Normal 0.358-3.74 0 [facility] [place] Comment on above: Performed By: #### L 100.0100, L500.4050, L502.0250, L500.4100, L501.9520, L400.0001, L506.1000 ####[facility] [place] [address] [place], [address] Urinalysis, Completeon 03-19 BACTERIA 0 SEEN Normal None Seen [facility] [place] Comment on above: Order Comment: CLEAN CATCH Performed By: #### L 100.0100, L500.4050, L502.0250, L500.4100, L501.9520, L400.0001, L506.1000 ####[facility] [place] [address] [place], [address] EPI,SQUAMOUS 0 SEEN Normal 5-10 [facility] [place] Comment on above: Order Comment: CLEAN CATCH Performed By: #### L 100.0100, L500.4050, L502.0250, L500.4100, L501.9520, L400.0001, L506.1000 ####[facility] [place] [address] [place], [address] Mucus Ql (Urine sed) 0 SEEN Normal [facility] Comment on above: Order Comment: CLEAN CATCH Performed By: #### L 100.0100, L500.4050, L502.0250, L500.4100, L501.9520, L400.0001, L506.1000 ####[facility] [place] [address] [place], [address] RBC 0 SEEN Normal 0-5 [facility] [place] Comment on above: Order Comment: CLEAN CATCH Performed By: #### L 100.0100, L500.4050, L502.0250, L500.4100, L501.9520, L400.0001, L506.1000 ####[facility] [place] [address] [place], [address] WBC 0 SEEN Normal 0-5 [facility] [place] Comment on above: Order Comment: CLEAN CATCH Performed By: #### L 100.0100, L500.4050, L502.0250, L500.4100, L501.9520, L400.0001, L506.1000 ####[facility] [place] [address] [place], [address] Vitamin D,25 Hydroxyon 03-19 Vitamin D 25-OH 39.8 ng/mL Normal [facility] [place] Comment on above: Result Comment: Swetha min D 25(OH) Status Range Deficiency <20 ng/mL (50nmol/L) Insufficiency 20 - 30 ng/mL (50 - 75 nmol/L) Sufficiency 30 - 100 ng/mL (75 - 250 nmol/L) Toxicity >100 ng/mL (>250 nmol/L) Performed By: #### L 100.0100, L500.4050, L502.0250, L500.4100, L501.9520, L400.0001, L506.1000 ####[facility] [place] [address] [place], [address] Pulmonary Visit Reporton Pulmonary Visit Report [facility] [place] [address] [place], [place] [address] OFFICE VISIT Date of Service: 03/17/24 MR#: [id number] Acct: [id number] Name: DEBBIE MIRELES Jana Rep #: [id number] : 1935 Provider: ERIKA Mcdaniels Age/Sex: 88/F Location: [facility] Status: Signed Assessment and Plan Assessment and Plan (1) ABDI (obstructive sleep apnea): Status: Chronic Plan: She is using and benefiting from Pap therapy. No indication for titration study at this time. Contact the office for any new or worsening symptoms in the meantime. Follow-up in 6 months. (2) Obesity: Status: Chronic Qualifiers: Body mass index: BMI 39.0-39.9 Obesity classification: adult class 2 (BMI 35 - 39.9) Obesity type: due to excess calories Serious obesity comorbidity presence: with serious comorbidity Qualified Code(s): E66.01 - Morbid (severe) obesity due to excess calories; Z68.39 - Body mass index [BMI] 39.0-39.9, adult Plan: Continue to encourage healthy weight loss. Plan Details Follow Up: 6 Months ([facility]) HPI 6 M FU Chief Complaint: Sleep apnea HPI Comments Details: This patient presents to the office today for follow-up of her obstructive sleep apnea. She is ambulatory and currently on room air. She is accompanied today by her daughter. She has not recently been seen in the ED or urgent care for any respiratory illness. She has not required any antibiotics or prednisone for any breathing problems. She only experiences shortness of breath on exertion. She denies any wheezing, chest tightness, chest pain or palpitations. Has not had any fever, chills or body aches. She denies any cough, sputum production or hemoptysis. She wakes up feeling rested and refreshed. She admits to occasionally nodding off to sleep in the chair. She does not nod off to sleep unintentionally. She has occasional dry mouth. She denies any morning headaches. She is not having excessive nocturia. Compliance report for the past 30 days shows 97% compliance and average use of 6 hours and 30 minutes per night current setting is AutoPap 5-15 cmH2O pressure typically being utilized 8.1 to 12.1 cm water. Residual AHI 1.7 events per hour. Leaks do not appear to be problematic. Intake Vital Signs 11/20/23 15:38 03/12/24 19:10 03/17/24 08:11 Height 5 ft 1 in 5 ft 2 in 5 ft 2 in Weight: 217 lb BMI 39.6 BP 182/71 H Blood Pressure Location Lt brachial Position Sitting Respiration 20 H Pulse 68 Pulse Source Monitor Temp 96.2 F L Temperature Source Temporal Artery Pulse Oximetry (%) 96 Oxygen Delivery Method room air Intake Visit Reasons: 6 M FU Wardrobe Mistress Required: No DME Vendor: JOSE PAYNE Accompanied by: Daughter Is patient in pain?: No Allergies clonidine (From [employer]) Allergy (Intermediate, Verified 03/17/24 12:42) Topical Reaction to PATCH ONLY, pills ok morphine Adverse Reaction (Intermediate, Verified 03/17/24 12:42) mental status change meperidine HCl (From Demerol) Adverse Reaction (Mild, Verified 03/17/24 12:42) mental status change Medications ???Medication ???Instructions ???Recorded ???Confirmed ???Type latanoprost 0.005 % eye drops 1 drp EACH EYE QHS Cataracts/Dry 07/29/14 03/17/24 History (Xalatan) eye cholecalciferol (vitamin D3) 125 125 mcg PO DAILY SUPPLEMENT 04/01/22 03/17/24 History mcg (5,000 unit) capsule liver supplement 1 cap PO QHS SUPPLEMENT 04/01/22 03/17/24 History cinnamon bark 500 mg capsule 500 mg PO DAILY SUPPLEMENT 06/11/22 03/17/24 History (Cinnamon) acetaminophen 500 mg tablet 1,000 mg PO Q6H PRN Pain 07/02/22 03/17/24 History ascorbic acid (vitamin C) 500 mg 500 mg PO BID supplement 07/02/22 03/17/24 History tablet nateglinide 60 mg tablet 60 mg PO TID dm 07/13/22 03/17/24 History Andrographis xt 187.5 mg-Isatis 1 cap PO DAILY 03/03/23 03/17/24 History root 150 mg-licorice 79.2 mg capsule grape seed extract 50 mg capsule 50 mg PO ONCE 03/03/23 03/17/24 History magnesium oxide 400 mg PO DAILY 03/03/23 03/17/24 History omega-3 fatty acids-fish oil 300 1 cap PO DAILY SUPPLEMENT 03/03/23 03/17/24 History mg-1,000 mg capsule berberine-herbal comb no.18 capsule cap PO 04/08/23 03/17/24 History curcumin-phosphatidyl choline 500 mg PO 04/08/23 03/17/24 History mg capsule losartan 100 mg tablet 100 mg PO DAILY #90 tabs 07/08/23 03/17/24 Rx furosemide 40 mg tablet 40 mg PO DAILY #90 tabs 10/16/23 03/17/24 Rx nifedipine 90 mg tablet,extended 90 mg PO DAILY #90 tabs 10/16/23 03/17/24 Rx release artery cleanse 1 cap PO DAILY 11/20/23 03/17/24 History aspirin 81 mg chewable tablet 81 mg PO DAILY HEART HEALTH 11/20/23 03/17/24 History calcium carbonate 500 mg PO DAILY 11/20/23 03/17/24 History circu max gold powder 1 tbsp PO DAILY 11/20/23 0 (more content not included)... Normal [facility] [place] CBC-Complete Blood Cnt No Di ffon 03-15-2024 Erythrocyte distribution width (RBC) [Ratio] 14.6 % Normal 11.6-14.6 [facility] [place] Comment on above: Performed By: #### L 500.3600, L100.0500, L501.0900 ####[facility] [place] [address] [place], [address] Hematocrit (Bld) [Volume fraction] 38.1 % Normal 37-47 [facility] [place] Comment on above: Performed By: #### L 500.3600, L100.0500, L501.0900 ####[facility] [place] [address] [place], [address] Hemoglobin (Bld) [Mass/Vol] 12.6 g/dL Normal 12.0-15.0 [facility] [place] Comment on above: Performed By: #### L 500.3600, L100.0500, L501.0900 ####[facility] [place] [address] [place], [address] MCH (RBC) [Entitic mass] 29.4 pg Normal 27.0-32.0 [facility] [place] Comment on above: Performed By: #### L 500.3600, L100.0500, L501.0900 ####[facility] [place] [address] [place], [address] MCHC (RBC) [Mass/Vol] 33.1 g/dL Normal 32-36 [facility] Comment on above: Performed By: #### L 500.3600, L100.0500, L501.0900 ####[facility] [place] [address] [place], [address] MCV (RBC) [Entitic vol] 89.0 fL Normal 81-99 [facility] Comment on above: Performed By: #### L 500.3600, L100.0500, L501.0900 ####[facility] [place] [address] [place], [address] Platelet mean volume (Bld) [Entitic vol] 9.8 fL Normal 6.2-12.0 [facility] [place] Comment on above: Performed By: #### L 500.3600, L100.0500, L501.0900 ####[facility] [place] [address] [place], [address] Platelets (Bld) [#/Vol] 257 10*3/uL Normal 150-450 [facility] [place] Comment on above: Performed By: #### L 500.3600, L100.0500, L501.0900 ####[facility] [place] [address] [place], [address] RBC (Bld) [#/Vol] 4.28 10*6/uL Normal 4.2-5.4 [facility] Comment on above: Performed By: #### L 500.3600, L100.0500, L501.0900 ####[facility] [place] [address] [place], [address] RDW SD 47.5 fl High 35.1-43.9 [facility] [place] Comment on above: Performed By: #### L 500.3600, L100.0500, L501.0900 ####[facility] [place] [address] [place], [address] WBC (Bld) [#/Vol] 8.4 10*3/uL Normal 4.4-11.0 [facility] Comment on above: Performed By: #### L 500.3600, L100.0500, L501.0900 ####[facility] [place] [address] [place], [address] Protein+Creatinine Ratio,Uri neon 03-15-2024 PROT:CRE RATIO 204 mg/g CRE High 0-200 [facility] [place] Comment on above: Performed By: #### L 500.3600, L100.0500, L501.0900 ####[facility] [place] [address] [place], [address] Protein (U) [Mass/Vol] 8.4 mg/dL Normal <11.9 [facility] Comment on above: Performed By: #### L 500.3600, L100.0500, L501.0900 ####[facility] [place] [address] [place], [address] UR CREAT 41.10 mg/dL Normal NO RANGE EST. [facility] [place] Comment on above: Performed By: #### L 500.3600, L100.0500, L501.0900 ####[facility] [place] [address] [place], [address] Renal Profileon 03-15-2024 Albumin [Mass/Vol] 2.8 g/dL Low 3.2-5.0 [facility] Comment on above: Performed By: #### L 500.3600, L100.0500, L501.0900 ####[facility] [place] [address] [place], [address] BUN/CRE 25.4 RATIO High 10-20 [facility] [place] Comment on above: Performed By: #### L 500.3600, L100.0500, L501.0900 ####[facility] [place] [address] [place], [address] CA,Total 9.9 mg/dL Normal 8.5-10.1 [facility] [place] Comment on above: Performed By: #### L 500.3600, L100.0500, L501.0900 ####[facility] [place] [address] [place], [address] Chloride [Moles/Vol] 110 mmol/L High 98-107 [facility] Comment on above: Performed By: #### L 500.3600, L100.0500, L501.0900 ####[facility] [place] [address] [place], [address] CO2 [Moles/Vol] 23.0 mmol/L Normal 21.0-32.0 [facility] [place] Comment on above: Performed By: #### L 500.3600, L100.0500, L501.0900 ####[facility] [place] [address] [place], [address] Creatinine [Mass/Vol] 1.30 mg/dL High 0.55-1.02 [facility] Comment on above: Result Comment: The validity of the calculated GFR GFRAA in patients over 70 years has not been determined. Clinical correlation is essential. Performed By: #### L 500.3600, L100.0500, L501.0900 ####[facility] [place] [address] [place], [address] EST GFR - AA 50 mL/min Low >60 [facility] [place] Comment on above: Result Comment: Afri can [place] GFR Calc Performed By: #### L 500.3600, L100.0500, L501.0900 ####[facility] [place] [address] [place], [address] GFR/1.73 sq M.predicted among non-blacks MDRD (S/P/Bld) [Vol rate/Area] 41 mL/min/{1.73_m2} Low >60 [facility] [place] Comment on above: Result Comment: Non- GFR Calc Performed By: #### L 500.3600, L100.0500, L501.0900 ####[facility] [place] [address] [place], [address] Glucose [Mass/Vol] 81 mg/dL Normal 74-106 [facility] Comment on above: Performed By: #### L 500.3600, L100.0500, L501.0900 ####[facility] [place] [address] [place], [address] Phosphate [Mass/Vol] 1.8 mg/dL Low 2.5-4.9 [facility] Comment on above: Performed By: #### L 500.3600, L100.0500, L501.0900 ####[facility] [place] [address] [place], [address] Potassium [Moles/Vol] 4.3 mmol/L Normal 3.5-5.1 [facility] Comment on above: Performed By: #### L 500.3600, L100.0500, L501.0900 ####[facility] [place] [address] [place], [address] Sodium [Moles/Vol] 140 mmol/L Normal 136-145 [facility] Comment on above: Performed By: #### L 500.3600, L100.0500, L501.0900 ####[facility] [place] [address] [place], [address] Urea nitrogen [Mass/Vol] 33 mg/dL High 7-18 [facility] [place] Comment on above: Performed By: #### L 500.3600, L100.0500, L501.0900 ####[facility] [place] [address] [place], [address] Emergency Department Summary on 03-12-2024 Emergency Department Summary [facility] [address] [place] [address] Emergency Department Summary 03/12/24 MR#: [id number] Acct: [id number] Name: DEBBIE MIRELES Rep #: [id number] : 1935 88 From: Tavon Dennis MD PCP: Dr. Martina Lal, DO Status:REG ER Location: ED HPI History of Present Illness Chief Complaint: Lower Extremity Injury Detail of Chief Complaint: Traumatic injury right and left foot Informant: patient Occured/Mechanism Mechanism/Context: Yes injury and Yes blunt trauma Comment: Chest drawer fell on her right and left foot Onset/Context/Timing Onset: Hours Context: Sudden Onset Timing: Continuous Quality of Pain: Dull and Aching Location: Right and left foot over the metatarsal bones Current Severity: Mild Maximum Severity: Severe Worsened by: Weightbearing and palpation Relieved by: Nothing Associated Symptoms Associated Symptoms: Negative for Parasthesia, Weakness or Loss of Funtion Narrative Narrative: Patient is an 88-year-old woman with history of breast cancer, bilateral carotid stenosis, hypertension, hyperlipidemia, diabetes, obstructive sleep apnea and heart failure with preserved ejection fraction who presents because of right and left foot pain after blunt trauma. She denies paresthesia, anesthesia or motor weakness. She has no other complaints or injury. Prior similar symptoms: No Recent Illness/Hospitalizati on: No PFSH PFSH Medical History (HFpEF) heart failure with preserved ejection fraction Arthritis Bilateral carotid artery stenosis Bilateral extracranial carotid artery stenosis BMI 40.0-44.9, adult Body aches Breast abscess Breast cancer, right breast ( 03/2022) CHF (congestive heart failure) Chronic kidney disease, stage 3a Cough Debility Diabetes mellitus Diastolic congestive heart failure Encounter for education FTT (failure to thrive) in adult GERD (gastroesophageal reflux disease) Glaucoma Hiatal hernia History of IBS HLD (hyperlipidemia) HTN (hypertension) Hyperlipidemia Hypertension Hypertension Hypoxia Hypoxia Labile blood pressure Labile blood pressure Left adrenal mass Left adrenal mass Left carotid artery stenosis Malaise Nocturnal hypoxia Obesity ABDI (obstructive sleep apnea) PONV (postoperative nausea and vomiting) Recurrent incisional hernia with incarceration Right flank pain Shakiness Stage 3a chronic kidney disease (CKD) Type 2 diabetes mellitus Uncontrolled hypertension Wears glasses Wears hearing aid Home Medications ???Medication ???Instructions ???Recorded ???Last Taken ???Type latanoprost 0.005 % eye drops 1 drp EACH EYE QHS Cataracts/Dry 07/29/14 07/13/22 History (Xalatan) eye cholecalciferol (vitamin D3) 125 125 mcg PO DAILY SUPPLEMENT 04/01/22 07/13/22 History mcg (5,000 unit) capsule liver supplement 1 cap PO QHS SUPPLEMENT 04/01/22 07/12/22 History Colloidal Silver 2 tsp PO DAILY SUPPLEMENT 06/11/22 07/13/22 History cinnamon bark 500 mg capsule 500 mg PO DAILY SUPPLEMENT 06/11/22 07/01/22 History (Cinnamon) acetaminophen 500 mg tablet 1,000 mg PO Q6H PRN Pain 07/02/22 06/28/22 History ascorbic acid (vitamin C) 500 mg 500 mg PO BID supplement 07/02/22 07/13/22 History tablet nateglinide 60 mg tablet 60 mg PO TID dm 07/13/22 07/13/22 History Andrographis xt 187.5 mg-Isatis 1 cap PO DAILY 03/03/23 Unknown History root 150 mg-licorice 79.2 mg capsule grape seed extract 50 mg capsule 50 mg PO ONCE 03/03/23 Unknown History magnesium oxide 400 mg PO DAILY 03/03/23 Unknown History omega-3 fatty acids-fish oil 300 1 cap PO DAILY SUPPLEMENT 03/03/23 Unknown History mg-1,000 mg capsule berberine-herbal comb no.18 capsule cap PO 04/08/23 Unknown History curcumin-phosphatidyl choline 500 mg PO 04/08/23 Unknown History mg capsule losartan 100 mg tablet 100 mg PO DAILY #90 tabs 07/08/23 Unknown Rx furosemide 40 mg tablet 40 mg PO DAILY #90 tabs 10/16/23 Unknown Rx nifedipine 90 mg tablet,extended 90 mg PO DAILY #90 tabs 10/16/23 Unknown Rx release artery cleanse 1 cap PO DAILY 11/20/23 Unknown History aspirin 81 mg chewable tablet 81 mg PO DAILY HEART HEALTH 11/20/23 Unknown History calcium carbonate 500 mg PO DAILY 11/20/23 Unknown History circu max gold powder 1 tbsp PO DAILY 11/20/23 Unknown History gabapentin 100 mg capsule 100 mg PO TID 11/20/23 Unknown History clonidine HCl 0.1 mg tablet 0.1 mg PO .COMPLEX #90 tabs 11/21/23 Unknown Rx atorvastatin 20 mg tablet 20 mg PO QHS #30 tabs 12/19/23 Unknown Rx hydrocodone-acetamino phen 5-325mg 1 tab PO Q6H PRN PRN Pain 3 days 03/12/24 Unknown Rx 5mg-325mg #10 TABLETS Allergy/AdvReac Type Severity Reaction Status Date / Time clonidine (From [facility]) Allergy Intermediate Topic (more content not included)... Normal [facility] Foot min 3 Viewson 4 Foot min 3 Views [facility] [address] [place] [address] Foot min 3 Views MR#: [id number] Acct: [id number] Name: DEBBIE MIRELES Rep #: [id number] : 1935 88 From: Roger persaud MD PCP: Dr. Martina Lal DO Status: REG ER Study: Foot min 3 Views Date of Exam: 03/12/24 Exam# [id number] Ordering Dr: Tavon Dennis MD [id number] INDICATION: Injury/Pain EXAMINATION/TECHNIQUE : X-RAY - LEFT XR Foot Min 3 Views COMPARISON: None. FINDINGS: No acute fracture or malalignment. No blastic or lytic lesions. Moderate scattered degenerative changes. The soft tissues are unremarkable. RAD/Foot min 3 Views IMPRESSION: No acute radiographic abnormalities. Electronically Signed: Roger Khoury MD at 20:21 EDT Reading Location ID and State: [address] [place] [address] Tel , Service support , CC: Dr. Martina Lal DO; Dr. Tavon Dennis MD Assistant Project Manager: Signed Normal [facility] Foot min 3 Views [facility] [address] [place] [address] Foot min 3 Views MR#: [id number] Acct: [id number] Name: DEBBIE MIRELES Rep #: [id number] : 1935 F 88 From: Roger persaud MD PCP: Dr. Martina Lal DO Status: REG ER Study: Foot min 3 Views Date of Exam: 03/12/24 Exam# [id number] Ordering Dr: Tavon Dennis MD [id number] INDICATION: Injury/Pain EXAMINATION/TECHNIQUE : X-RAY - RIGHT XR Foot Min 3 Views COMPARISON: None. FINDINGS: No acute fracture or malalignment. No blastic or lytic lesions. Mild scattered degenerative changes. First toe bunion. Plantar calcaneal enthesophyte. The soft tissues are unremarkable. RAD/Foot min 3 Views IMPRESSION: No acute radiographic abnormalities. Electronically Signed: Roger Khoury MD at 20:21 EDT , CC: Dr. Martina Lal DO; Dr. Tavon Dennis MD Assistant Project Manager: Signed Normal [facility] Femur Min 2 Viewson 03-08-20 Femur Min 2 Views [facility] [address] [place], [place] [address] Femur Min 2 Views MR#: [id number] Acct: [id number] Name: DEBBIE MIRELES Rep #: [id number] : 1935 F 88 From: Viri Chi PCP: Dr. Martina Lal DO Status: REG CLI Study: Femur Min 2 Views Date of Exam: 03/08/24 Exam# [id number] Ordering Dr: Tamra Francis MD [id number] INDICATION: BILAT HIP PAIN EXAMINATION/TECHNIQUE : X-RAY - RIGHT XR Femur Min 2 Views 4 VIEWS COMPARISON: No relevant prior comparison study available __ FINDINGS: BONES: No fracture demonstrated. Femoral head is normal contour. Moderate degenerative changes at the hip with joint space narrowing and subchondral sclerosis and osteophytes. JOINTS: No dislocation. SOFT TISSUES: Unremarkable. __ RAD/Femur Min 2 Views IMPRESSION: Moderate degenerative changes at the hip. No evidence of fracture. Electronically Signed: Viri Venegas MD at 7:52 EDT Reading Location ID and State: [facility] / [place] Tel , Service support , CC: Dr. Tamra Francis MD; Dr. Martina Lal DO Assistant Project Manager: Signed Normal [facility] Femur Min 2 Views [facility] [address] [place] [id number] Femur Min 2 Views MR#: [id number] Acct: [id number] Name: DEBBIE MIRELES Rep #: [id number] : 1935 F 88 From: Viri Chi PCP: Dr. Martina Lal DO Status: REG CLI Study: Femur Min 2 Views Date of Exam: 03/08/24 Exam# [id number] Ordering Dr: Tamra Francis MD [id number] INDICATION: HIP PAIN EXAMINATION/TECHNIQUE : X-RAY - LEFT XR Femur Min 2 Views 4 VIEWS COMPARISON: No relevant prior comparison study available __ FINDINGS: BONES: No fracture demonstrated. Femoral head is normal in contour. Mild joint space narrowing at the hip with subchondral sclerosis. Degenerative changes at the knee. JOINTS: No dislocation. SOFT TISSUES: Unremarkable. __ RAD/Femur Min 2 Views IMPRESSION: No evidence of fracture. Mild degenerative changes of the hip. Electronically Signed: Viri Venegas MD at 7:51 EDT , CC: Dr. Tamra Francis MD; Dr. Martina Lal DO Assistant Project Manager: Signed Normal [facility] Basophil percentageOrdered B y: Dena Kwok on 11-12-2023 Basophil percentage 2.7 mg/dL 2.5-4.9 [facility] Chloride [Moles/Vol] 110 mmol/L 98-107 [facility] Glucose [Mass/Vol] 88 mg/dL 74-106 [facility] Hemoglobin (Bld) [Mass/Vol] 12.3 g/dL 12.0-15.0 [facility] Potassium [Moles/Vol] 4.6 mmol/L 3.5-5.1 [facility] Sodium [Moles/Vol] 140 mmol/L 136-145 [facility] WBC (Bld) [#/Vol] 8.4 10*3/uL 4.4-11.0 [facility] Determination of erythrocyte mean corpuscular volume (MCV)Ordered By: Dena Kwok on 11-12-2023 MCV (RBC) [Entitic vol] 90.6 fL 81-99 [facility] Erythrocyte distribution wid th ratioOrdered By: Dena Kwok on 11-12-2023 Erythrocyte distribution width (RBC) [Ratio] 14.0 % 11.6-14.6 [facility] Erythrocyte distribution wid th standard deviationOrdered By: Dena Kwok on 11-12-2023 Erythrocyte distribution width (RBC) [Entitic vol] 47.1 fL 35.1-43.9 [facility] Hematocrit Auto (Bld) [Volum e fraction]Ordered By: Dena Kwok on 11-12-2023 Hematocrit (Bld) [Volume fraction] 38.7 % 37-47 [facility] Laboratory - Chemistry and C hemistry - challengeOrdered By: Dena Kwok on 11-12-2023 CO2 [Moles/Vol] 26.0 mmol/L 21.0-32.0 [facility] Urea nitrogen/Creatinine [Mass ratio] 31.3 mg/mg 10-20 [facility] Laboratory - Hematology and Cell countsOrdered By: Dena Kwok on 11-12-2023 MCH (RBC) [Entitic mass] 28.8 pg 27.0-32.0 [facility] MCHC (RBC) [Mass/Vol] 31.8 g/dL 32-36 [facility] Platelet mean volume (Bld) [Entitic vol] 10.5 fL 6.2-12.0 [facility] Platelets (Bld) [#/Vol] 268 10*3/uL 150-450 [facility] No Panel InformationOrdered By: Dena Kwok on 11-12-2023 Estimated GFR (MDRD) Amer 42 mL/min >60 [facility] Comment on above: GFR Calc Estimated GFR (MDRD) Non-Af Amer 35 mL/min >60 [facility] Comment on above: Non- GFR Calc RBC Auto (Bld) [#/Vol]Ordere d By: Dena Kwok on 11-12-2023 RBC (Bld) [#/Vol] 4.27 10*6/uL 4.2-5.4 [facility] Serum or plasma calcium brian urement (mass/volume)Ordered By: Dena Kwok on 11-12-2023 Calcium [Mass/Vol] 9.8 mg/dL 8.5-10.1 [facility] Serum or plasma creatinine m easurement (mass/volume)Ordered By: Dena Kwok on 11-12-2023 Creatinine [Mass/Vol] 1.50 mg/dL 0.55-1.02 [facility] Comment on above: The validity of the calculated GFR & GFRAA in patients over 70 years has not been determined. Clinical correlation is essential. Serum or plasma urea nitroge n measurement (mass/volume)Ordered By: Dena Kwok on 11-12-2023 Urea nitrogen [Mass/Vol] 47 mg/dL 7-18 [facility] Thin prep Papanicolaou smear with manual screeningOrdered By: Dena Kwok on 11-12-2023 Protein (U) [Mass/Vol] 6.1 mg/dL 0.0-11.8 [facility] Thin prep Papanicolaou smear with manual screening 3.4 g/dL 3.2-5.0 [facility] Urine creatinine measurement (mass/volume)Ordered By: Dena Kwok on 11-12-2023 Creatinine (U) [Mass/Vol] 23.00 mg/dL NO RANGE EST. [facility] Urine protein/creatinine mas s ratioOrdered By: Dena Kwok on 11-12-2023 Protein/Creatinine (U) [Mass ratio] 265 mg/g CRE 0-200 [facility] Absolute lymphocyte countOrd ered By: Angely Carrizales on 10-24-2023 Lymphocytes Auto (Unsp spec) [#/Vol] 2.12 10*3/uL 0.83-4.51 [facility] Automated lymphocyte count a s percentage of total leukocytesOrdered By: Angely Carrizales on 10-24-2023 Lymphocytes/100 WBC Auto (Unsp spec) 24.3 % 19-41 [facility] Basophil percentageOrdered B y: Angely Carrizales on 10-24-2023 Basophils/100 WBC (Bld) 1.0 % 0-1 [facility] Chloride [Moles/Vol] 109 mmol/L 98-107 [facility] Eosinophils/100 WBC (Bld) 3.0 % 0-5 [facility] Glucose [Mass/Vol] 120 mg/dL 74-106 [facility] Comment on above: Fasting Glucose resu lt from 100 to 125 mg/dL suggests IMPAIRED HOMEOSTASIS per A.D.A. criteria. Hemoglobin (Bld) [Mass/Vol] 11.3 g/dL 12.0-15.0 [facility] Monocytes/100 WBC (Bld) 8.7 % 0-10 [facility] Neutrophils (Bld) [#/Vol] 5.5 10*3/uL 2.0-7.7 [facility] Neutrophils/100 WBC (Bld) 62.8 % 47-70 [facility] Potassium [Moles/Vol] 4.4 mmol/L 3.5-5.1 [facility] Sodium [Moles/Vol] 140 mmol/L 136-145 [facility] WBC (Bld) [#/Vol] 8.7 10*3/uL 4.4-11.0 [facility] Determination of erythrocyte mean corpuscular volume (MCV)Ordered By: Angely Carrizales on 10-24-2023 MCV (RBC) [Entitic vol] 89.2 fL 81-99 [facility] Erythrocyte distribution wid th ratioOrdered By: Angely All on 10-24-2023 Erythrocyte distribution width (RBC) [Ratio] 13.9 % 11.6-14.6 [facility] Erythrocyte distribution wid th standard deviationOrdered By: Angely All on 10-24-2023 Erythrocyte distribution width (RBC) [Entitic vol] 45.9 fL 35.1-43.9 [facility] Hematocrit Auto (Bld) [Volum e fraction]Ordered By: Angely All on 10-24-2023 Hematocrit (Bld) [Volume fraction] 35.4 % 37-47 [facility] Immature granulocytes/100 WB C Auto (Bld)Ordered By: Angely All on 10-24-2023 Immature granulocytes/100 WBC (Bld) 0.200 % 0.0-0.9 [facility] Comment on above: IG% - Immature Granu locytes (promyelocytes, myelocytes and metamyelocytes) > 1% indicates that a LEFT SHIFT is Present. Laboratory - Chemistry and C hemistry - challengeOrdered By: Angely Carrizales on 10-24-2023 CO2 [Moles/Vol] 25.0 mmol/L 21.0-32.0 [facility] Natriuretic peptide B (Bld) [Mass/Vol] 151.4 pg/mL 0-100 [facility] Urea nitrogen/Creatinine [Mass ratio] 29.3 mg/mg 10-20 [facility] Laboratory - Hematology and Cell countsOrdered By: Angelyarti Carrizales on 10-24-2023 MCH (RBC) [Entitic mass] 28.5 pg 27.0-32.0 [facility] MCHC (RBC) [Mass/Vol] 31.9 g/dL 32-36 [facility] Nucleated RBC/100 WBC (Bld) [Ratio] 0 % 0-5 [facility] Platelet mean volume (Bld) [Entitic vol] 10.2 fL 6.2-12.0 [facility] Platelets (Bld) [#/Vol] 276 10*3/uL 150-450 [facility] No Panel InformationOrdered By: Angely Carrizales on 10-24-2023 Estimated GFR (MDRD) Amer 42 mL/min >60 [facility] Comment on above: GFR Calc Estimated GFR (MDRD) Non-Af Amer 35 mL/min >60 [facility] Comment on above: Non- GFR Calc RBC Auto (Bld) [#/Vol]Ordere d By: Angely Carrizales on 10-24-2023 RBC (Bld) [#/Vol] 3.97 10*6/uL 4.2-5.4 [facility] Serum or plasma calcium brian urement (mass/volume)Ordered By: Angely Carrizales on 10-24-2023 Calcium [Mass/Vol] 9.8 mg/dL 8.5-10.1 [facility] Serum or plasma creatinine m easurement (mass/volume)Ordered By: Angely Carrizales on 10-24-2023 Creatinine [Mass/Vol] 1.50 mg/dL 0.55-1.02 [facility] Comment on above: The validity of the calculated GFR & GFRAA in patients over 70 years has not been determined. Clinical correlation is essential. Serum or plasma thyroid stim ulating hormone (TSH) measurement (units/volume)Ordered By: Angely Carrizales on 10-24-2023 TSH Qn 2.72 uIU/mL 0.358-3.74 [facility] Serum or plasma urea nitroge n measurement (mass/volume)Ordered By: Angely Carrizales on 10-24-2023 Urea nitrogen [Mass/Vol] 44 mg/dL 7-18 [facility] Thin prep Papanicolaou smear with manual screeningOrdered By: Angely Carrizales on 10-24-2023 Thin prep Papanicolaou smear with manual screening 6 5-15 [facility] Basophil percentageOrdered B y: Dena Kwok on 07-10-2023 Basophil percentage 2.9 mg/dL 2.5-4.9 [facility] Chloride [Moles/Vol] 110 mmol/L 98-107 [facility] Glucose [Mass/Vol] 73 mg/dL 74-106 [facility] Potassium [Moles/Vol] 4.5 mmol/L 3.5-5.1 [facility] Sodium [Moles/Vol] 140 mmol/L 136-145 [facility] WBC (Bld) [#/Vol] 8.2 10*3/uL 4.4-11.0 [facility] Blood erythrocytes count (nu mber/volume)Ordered By: Dena Kwok on 07-10-2023 RBC (Bld) [#/Vol] 4.30 10*6/uL 4.2-5.4 [facility] Blood hemoglobin measurement (mass/volume)Ordered By: Dena Kwok on 07-10-2023 Hemoglobin (Bld) [Mass/Vol] 12.7 g/dL 12.0-15.0 [facility] Blood platelet mean volumeOr dered By: Dena Kwok on 07-10-2023 Platelet mean volume (Bld) [Entitic vol] 10.5 fL 6.2-12.0 [facility] Determination of erythrocyte mean corpuscular volume (MCV)Ordered By: Dena Kwok on 07-10-2023 MCV (RBC) [Entitic vol] 91.2 fL 81-99 [facility] Hematocrit Auto (Bld) [Volum e fraction]Ordered By: Dena Kwok on 07-10-2023 Hematocrit (Bld) [Volume fraction] 39.2 % 37-47 [facility] Laboratory - Chemistry and C hemistry - challengeOrdered By: Dena Kwok on 07-10-2023 CO2 [Moles/Vol] 23.0 mmol/L 21.0-32.0 [facility] Urea nitrogen/Creatinine [Mass ratio] 22.9 mg/mg 10-20 [facility] Laboratory - Hematology and Cell countsOrdered By: Dena Kwok on 07-10-2023 Erythrocyte distribution width (RBC) [Entitic vol] 45.8 fL 35.1-43.9 [facility] Erythrocyte distribution width (RBC) [Ratio] 13.7 % 11.6-14.6 [facility] MCH (RBC) [Entitic mass] 29.5 pg 27.0-32.0 [facility] MCHC Auto (RBC) [Mass/Vol]Or dered By: Dena Kwok on 07-10-2023 MCHC (RBC) [Mass/Vol] 32.4 g/dL 32-36 [facility] No Panel InformationOrdered By: Dena Kwok on 07-10-2023 Estimated GFR (MDRD) Amer 56 mL/min >60 [facility] Comment on above: GFR Calc Estimated GFR (MDRD) Non-Af Amer 46 mL/min >60 [facility] Comment on above: Non- GFR Calc Parathyroid Hormone (Intact) 80.8 pg/mL 18.4-80.1 [facility] Vitamin D 25-Hydroxy 61.3 ng/mL [facility] Comment on above: Vitamin D 25(OH) Sta tus Range Deficiency <20 ng/mL (50nmol/L) Insufficiency 20 - 30 ng/mL (50 - 75 nmol/L) Sufficiency 30 - 100 ng/mL (75 - 250 nmol/L) Toxicity >100 ng/mL (>250 nmol/L) Platelets bldOrdered By: Miguel Angel Kwok on 07-10-2023 Platelets (Bld) [#/Vol] 263 10*3/uL 150-450 [facility] Serum or plasma albumin brian urement (mass/volume)Ordered By: Dena Kwok on 07-10-2023 Albumin [Mass/Vol] 3.3 g/dL 3.2-5.0 [facility] Serum or plasma calcium brian urement (mass/volume)Ordered By: Dena Kwok on 07-10-2023 Calcium [Mass/Vol] 9.9 mg/dL 8.5-10.1 [facility] Serum or plasma creatinine m easurement (mass/volume)Ordered By: Dena Kwok on 07-10-2023 Creatinine [Mass/Vol] 1.18 mg/dL 0.55-1.02 [facility] Comment on above: The validity of the calculated GFR & GFRAA in patients over 70 years has not been determined. Clinical correlation is essential. Serum or plasma urea nitroge n measurement (mass/volume)Ordered By: Dena Kwok on 07-10-2023 Urea nitrogen [Mass/Vol] 27 mg/dL - [facility] Urine creatinine measurement (mass/volume)Ordered By: Dena Kwok on 07-10-2023 Creatinine (U) [Mass/Vol] 26.30 mg/dL NO RANGE EST. [facility] Urine protein measurement (m ass/volume)Ordered By: Dena Kwok on 07-10-2023 Protein (U) [Mass/Vol] 9.1 mg/dL 0.0-11.8 [facility] Urine protein/creatinine mas s ratioOrdered By: Dena Kwok on 07-10-2023 Protein/Creatinine (U) [Mass ratio] 346 mg/g CRE 0-200 [facility] Basophil percentageOrdered B y: Louise Suarez on 05-07-2023 Creatinine [Mass/Vol] 0.9 mg/dL 0.55-1.02 [facility] No Panel InformationOrdered By: Louise Suarez on 05-07-2023 Bedside Estimated GFR (eGFR) > 60.0000 mL/min >60 [facility] Absolute lymphocyte countOrd ered By: Socorro Ivan on 03-11-2023 Lymphocytes Auto (Unsp spec) [#/Vol] 2.42 10*3/uL 0.83-4.51 [facility] Basophil percentageOrdered B y: Socorro Ivan on 03-11-2023 Basophils/100 WBC (Bld) 0.7 % 0-1 [facility] Bilirubin [Mass/Vol] 0.60 mg/dL 0.20-1.00 [facility] Comment on above: For patients on eltr ombopag therapy, use of [place] TBIL is not recommended. Chloride [Moles/Vol] 110 mmol/L 98-107 [facility] Eosinophils/100 WBC (Bld) 2.5 % 0-5 [facility] Glucose [Mass/Vol] 79 mg/dL 74-106 [facility] Neutrophils (Bld) [#/Vol] 5.3 10*3/uL 2.0-7.7 [facility] Neutrophils/100 WBC (Bld) 60.3 % 47-70 [facility] Potassium [Moles/Vol] 4.5 mmol/L 3.5-5.1 [facility] Protein [Mass/Vol] 7.4 g/dL 6.4-8.2 [facility] Sodium [Moles/Vol] 141 mmol/L 136-145 [facility] WBC (Bld) [#/Vol] 8.7 10*3/uL 4.4-11.0 [facility] Blood erythrocytes count (nu mber/volume)Ordered By: Socorro Ivan on 03-11-2023 RBC (Bld) [#/Vol] 4.19 10*6/uL 4.2-5.4 [facility] Blood hemoglobin measurement (mass/volume)Ordered By: Socorro Ivan on 03-11-2023 Hemoglobin (Bld) [Mass/Vol] 12.4 g/dL 12.0-15.0 [facility] Blood lymphocytes/100 leukoc ytesOrdered By: Socorro Ivan on 03-11-2023 Lymphocytes/100 WBC (Bld) 27.7 % 19-41 [facility] Blood monocytes/100 leukocyt esOrdered By: Socorro Ivan on 03-11-2023 Monocytes/100 WBC (Bld) 8.5 % 0-10 [facility] Blood platelet mean volumeOr dered By: Socorro Ivan on 03-11-2023 Platelet mean volume (Bld) [Entitic vol] 10.2 fL 6.2-12.0 [facility] Determination of erythrocyte mean corpuscular volume (MCV)Ordered By: Socorro Ivan on 03-11-2023 MCV (RBC) [Entitic vol] 90.7 fL 81-99 [facility] Hematocrit Auto (Bld) [Volum e fraction]Ordered By: Socorro Ivan on 03-11-2023 Hematocrit (Bld) [Volume fraction] 38.0 % 37-47 [facility] Laboratory - Chemistry and C hemistry - challengeOrdered By: Socorro Ivan on 03-11-2023 ALP [Catalytic activity/Vol] 81 U/L 45-117 [facility] ALT [Catalytic activity/Vol] 21 U/L 13-56 [facility] CO2 [Moles/Vol] 24.0 mmol/L 21.0-32.0 [facility] Globulin (S) [Mass/Vol] 3.9 g/dL 2.2-4.2 [facility] Urea nitrogen/Creatinine [Mass ratio] 28.5 mg/mg 10-20 [facility] Laboratory - Hematology and Cell countsOrdered By: Socorro Ivan on 03-11-2023 Erythrocyte distribution width (RBC) [Entitic vol] 43.9 fL 35.1-43.9 [facility] Erythrocyte distribution width (RBC) [Ratio] 13.2 % 11.6-14.6 [facility] Immature granulocytes/100 WBC (Bld) 0.300 % 0.0-0.9 [facility] Comment on above: IG% - Immature Granu locytes (promyelocytes, myelocytes and metamyelocytes) > 1% indicates that a LEFT SHIFT is Present. MCH (RBC) [Entitic mass] 29.6 pg 27.0-32.0 [facility] Nucleated RBC/100 WBC (Bld) [Ratio] 0 % 0-5 [facility] MCHC Auto (RBC) [Mass/Vol]Or dered By: Socorro Ivan on 03-11-2023 MCHC (RBC) [Mass/Vol] 32.6 g/dL 32-36 [facility] No Panel InformationOrdered By: Socorro Ivan on 03-11-2023 Estimated GFR (MDRD) Amer 50 mL/min >60 [facility] Comment on above: GFR Calc Estimated GFR (MDRD) Non-Af Amer 41 mL/min >60 [facility] Comment on above: Non- GFR Calc Platelets bldOrdered By: Abhinav Ivan on 03-11-2023 Platelets (Bld) [#/Vol] 272 10*3/uL 150-450 [facility] Serum or plasma albumin brian urement (mass/volume)Ordered By: Socorro Ivan on 03-11-2023 Albumin [Mass/Vol] 3.5 g/dL 3.2-5.0 [facility] Serum or plasma albumin/glob ulin mass ratioOrdered By: Socorro Ivan on 03-11-2023 Albumin/Globulin [Mass ratio] 0.9 {ratio} 0.9-2.4 [facility] Serum or plasma calcium brian urement (mass/volume)Ordered By: [facility] Marzena on 03-11-2023 Calcium [Mass/Vol] 10.2 mg/dL 8.5-10.1 [facility] Serum or plasma creatinine m easurement (mass/volume)Ordered By: [facility] on 03-11-2023 Creatinine [Mass/Vol] 1.30 mg/dL 0.55-1.02 [facility] Comment on above: The validity of the calculated GFR & GFRAA in patients over 70 years has not been determined. Clinical correlation is essential. Serum or plasma urea nitroge n measurement (mass/volume)Ordered By: [facility] Marzena on 03-11-2023 Urea nitrogen [Mass/Vol] 37 mg/dL 7-18 [facility] Thin prep Papanicolaou smear with manual screeningOrdered By: [facility] Hospitaljos[facility] miguel on 03-11-2023 Thin prep Papanicolaou smear with manual screening 18 U/L 15-37 [facility] Thin prep Papanicolaou smear with manual screening 7 5-15 [facility] Basophil percentageOrdered B y: Dena wKok on 02-10-2023 Chloride [Moles/Vol] 111 mmol/L 98-107 [facility] Glucose [Mass/Vol] 94 mg/dL 74-106 [facility] Potassium [Moles/Vol] 4.5 mmol/L 3.5-5.1 [facility] Sodium [Moles/Vol] 140 mmol/L 136-145 [facility] Laboratory - Chemistry and C hemistry - challengeOrdered By: Dena Kwok on 02-10-2023 CO2 [Moles/Vol] 25.0 mmol/L 21.0-32.0 [facility] Urea nitrogen/Creatinine [Mass ratio] 27.3 mg/mg 10-20 [facility] No Panel InformationOrdered By: Dena Kwok on 02-10-2023 Estimated GFR (MDRD) Amer 51 mL/min >60 [facility] Comment on above: GFR Calc Estimated GFR (MDRD) Non-Af Amer 42 mL/min >60 [facility] Comment on above: Non- GFR Calc Serum or plasma calcium brian urement (mass/volume)Ordered By: Dena Kwok on 02-10-2023 Calcium [Mass/Vol] 9.5 mg/dL 8.5-10.1 [facility] Serum or plasma creatinine m easurement (mass/volume)Ordered By: Dena Kwok on 02-10-2023 Creatinine [Mass/Vol] 1.28 mg/dL 0.55-1.02 [facility] Comment on above: The validity of the calculated GFR & GFRAA in patients over 70 years has not been determined. Clinical correlation is essential. Serum or plasma urea nitroge n measurement (mass/volume)Ordered By: Dena Kwok on 02-10-2023 Urea nitrogen [Mass/Vol] 35 mg/dL 7-18 [facility] Thin prep Papanicolaou smear with manual screeningOrdered By: Dena Kwok on 02-10-2023 Thin prep Papanicolaou smear with manual screening 4 5-15 [facility] Basophil percentageOrdered B y: Dena Kwok on 01-10-2023 Chloride [Moles/Vol] 110 mmol/L 98-107 [facility] Glucose [Mass/Vol] 74 mg/dL 74-106 [facility] Potassium [Moles/Vol] 4.8 mmol/L 3.5-5.1 [facility] Sodium [Moles/Vol] 137 mmol/L 136-145 [facility] Laboratory - Chemistry and C hemistry - challengeOrdered By: Dena Kwok on 01-10-2023 CO2 [Moles/Vol] 22.0 mmol/L 21.0-32.0 [facility] Urea nitrogen/Creatinine [Mass ratio] 35.9 mg/mg 10-20 [facility] No Panel InformationOrdered By: Dena Kwok on 01-10-2023 Estimated GFR (MDRD) Amer 50 mL/min >60 [facility] Comment on above: GFR Calc Estimated GFR (MDRD) Non-Af Amer 41 mL/min >60 [facility] Comment on above: Non- GFR Calc Serum or plasma calcium brian urement (mass/volume)Ordered By: Dena Kwok on 01-10-2023 Calcium [Mass/Vol] 10.2 mg/dL 8.5-10.1 [facility] Serum or plasma creatinine m easurement (mass/volume)Ordered By: Dena Kwok on 01-10-2023 Creatinine [Mass/Vol] 1.31 mg/dL 0.55-1.02 [facility] Comment on above: The validity of the calculated GFR & GFRAA in patients over 70 years has not been determined. Clinical correlation is essential. Serum or plasma urea nitroge n measurement (mass/volume)Ordered By: Dena Kwok on 01-10-2023 Urea nitrogen [Mass/Vol] 47 mg/dL 7-18 [facility] Thin prep Papanicolaou smear with manual screeningOrdered By: Dena Kwok on 01-10-2023 Thin prep Papanicolaou smear with manual screening 5 5-15 [facility] Basophil percentageOrdered B y: Dr. Kwok on 11-11-2022 Chloride [Moles/Vol] 112 mmol/L 98-107 [facility] Glucose [Mass/Vol] 95 mg/dL 74-106 [facility] Potassium [Moles/Vol] 4.5 mmol/L 3.5-5.1 [facility] Sodium [Moles/Vol] 139 mmol/L 136-145 [facility] - Chemistry and C hemistry - challengeOrdered By: Dr. Kwok on 11-11-2022 CO2 [Moles/Vol] 23.0 mmol/L 21.0-32.0 [facility] Urea nitrogen/Creatinine [Mass ratio] 36.1 mg/mg 10-20 [facility] No Panel InformationOrdered By: Dr. Kwok on 11-11-2022 Estimated GFR (MDRD) Amer 44 mL/min >60 [facility] Comment on above: GFR Calc Estimated GFR (MDRD) Non-Af Amer 37 mL/min >60 [facility] Comment on above: Non- GFR Calc Serum or plasma calcium brian urement (mass/volume)Ordered By: Dr. Kwok on 11-11-2022 Calcium [Mass/Vol] 10.3 mg/dL 8.5-10.1 [facility] Serum or plasma creatinine m easurement (mass/volume)Ordered By: Dr. Kwok on 11-11-2022 Creatinine [Mass/Vol] 1.44 mg/dL 0.55-1.02 [facility] Comment on above: The validity of the calculated GFR & GFRAA in patients over 70 years has not been determined. Clinical correlation is essential. Serum or plasma urea nitroge n measurement (mass/volume)Ordered By: Dr. Kwok on 11-11-2022 Urea nitrogen [Mass/Vol] 52 mg/dL 7-18 [facility] Thin prep Papanicolaou smear with manual screeningOrdered By: Dr. Kwok on 11-11-2022 Thin prep Papanicolaou smear with manual screening 4 5-15 [facility] Basophil percentageOrdered B y: Dr. Kwok on 10-10-2022 Chloride [Moles/Vol] 105 mmol/L 98-107 [facility] Glucose [Mass/Vol] 64 mg/dL 74-106 [facility] Potassium [Moles/Vol] 4.3 mmol/L 3.5-5.1 [facility] Sodium [Moles/Vol] 139 mmol/L 136-145 [facility] - Chemistry and C hemistry - challengeOrdered By: Dr. Kwok on 10-10-2022 CO2 [Moles/Vol] 25.0 mmol/L 21.0-32.0 [facility] Urea nitrogen/Creatinine [Mass ratio] 36.4 mg/mg 10-20 [facility] No Panel InformationOrdered By: Dr. Kwok on 10-10-2022 Estimated GFR (MDRD) Amer 38 mL/min >60 [facility] Comment on above: GFR Calc Estimated GFR (MDRD) Non-Af Amer 31 mL/min >60 [facility] Comment on above: Non- GFR Calc Serum or plasma calcium brian urement (mass/volume)Ordered By: Dr. Kwok on 10-10-2022 Calcium [Mass/Vol] 10.4 mg/dL 8.5-10.1 [facility] Serum or plasma creatinine m easurement (mass/volume)Ordered By: Dr. Kwok on 10-10-2022 Creatinine [Mass/Vol] 1.65 mg/dL 0.55-1.02 [facility] Comment on above: The validity of the calculated GFR & GFRAA in patients over 70 years has not been determined. Clinical correlation is essential. Serum or plasma urea nitroge n measurement (mass/volume)Ordered By: Dr. Kwok on 10-10-2022 Urea nitrogen [Mass/Vol] 60 mg/dL 7-18 [facility] Thin prep Papanicolaou smear with manual screeningOrdered By: Dr. Kwok on 10-10-2022 Thin prep Papanicolaou smear with manual screening 9 5-15 [facility] Basophil percentageOrdered B y: Dr. Whipple on 09-12-2022 Basophil percentage 77 mg/dL 74-106 [facility] Basophil percentage 135 mmol/L 136-145 [facility] Basophil percentage 4.6 mmol/L 3.5-5.1 [facility] Basophil percentage 105 mmol/L 98-107 [facility] Chloride [Moles/Vol] 105 mmol/L 98-107 [facility] Glucose [Mass/Vol] 77 mg/dL 74-106 [facility] Potassium [Moles/Vol] 4.6 mmol/L 3.5-5.1 [facility] Sodium [Moles/Vol] 135 mmol/L 136-145 [facility] - Chemistry and C hemistry - challengeOrdered By: Dr. Whipple on 09-12-2022 CO2 [Moles/Vol] 22.0 mmol/L 21.0-32.0 [facility] Urea nitrogen/Creatinine [Mass ratio] 31.5 mg/mg 10-20 [facility] No Panel InformationOrdered By: Dr. Whipple on 09-12-2022 Estimated GFR (MDRD) Amer 37 mL/min >60 [facility] Comment on above: GFR Calc Estimated GFR (MDRD) Non-Af Amer 31 mL/min >60 [facility] Comment on above: Non- GFR Calc 31 mL/min >60 [facility] 37 mL/min >60 [facility] 31.5 RATIO 10-20 [facility] 22.0 mmol/L 21.0-32.0 [facility] Dehydroepiandrosterone Sulfate 90.4 ug/dL 13.9-142.8 [facility] Comment on above: Performed at: - [address] [id number] Director: Miguel Garcia PhD, Phone: [phone] 90.4 ug/dL 13.9-142.8 [facility] Serum or plasma calcium brian urement (mass/volume)Ordered By: Dr. Whipple on 09-12-2022 Calcium [Mass/Vol] 10.5 mg/dL 8.5-10.1 [facility] Serum or plasma creatinine m easurement (mass/volume)Ordered By: Dr. Whipple on 09-12-2022 Creatinine [Mass/Vol] 1.68 mg/dL 0.55-1.02 [facility] Comment on above: The validity of the calculated GFR & GFRAA in patients over 70 years has not been determined. Clinical correlation is essential. Serum or plasma urea nitroge n measurement (mass/volume)Ordered By: Dr. Whipple on 09-12-2022 Urea nitrogen [Mass/Vol] 53 mg/dL 7-18 [facility] Thin prep Papanicolaou smear with manual screeningOrdered By: Dr. Whipple on 09-12-2022 Thin prep Papanicolaou smear with manual screening 8 5-15 [facility] Basophil percentageOrdered B y: Juani Maya on 08-08-2022 Basophil percentage 104 mg/dL 74-106 [facility] Basophil percentage 7.6 g/dL 6.4-8.2 [facility] Basophil percentage 2.4 mg/dL 2.5-4.9 [facility] Basophil percentage 0.90 mg/dL 0.20-1.00 [facility] Basophil percentage 139 mmol/L 136-145 [facility] Basophil percentage 4.3 mmol/L 3.5-5.1 [facility] Basophil percentage 105 mmol/L 98-107 [facility] Basophils (Bld) [#/Vol] 10.5 10*3/uL 4.4-11.0 [facility] Bilirubin [Mass/Vol] 0.90 mg/dL 0.20-1.00 [facility] Comment on above: For patients on eltr ombopag therapy, use of [place] TBIL is not recommended. Chloride [Moles/Vol] 105 mmol/L 98-107 [facility] Glucose [Mass/Vol] 104 mg/dL 74-106 [facility] Comment on above: Fasting Glucose resu lt from 100 to 125 mg/dL suggests IMPAIRED HOMEOSTASIS per A.D.A. criteria. Potassium [Moles/Vol] 4.3 mmol/L 3.5-5.1 [facility] Protein [Mass/Vol] 7.6 g/dL 6.4-8.2 [facility] Sodium [Moles/Vol] 139 mmol/L 136-145 [facility] WBC (Bld) [#/Vol] 10.5 10*3/uL 4.4-11.0 [facility] Blood erythrocytes count (nu mber/volume)Ordered By: Juani Maya on 08-08-2022 RBC (Bld) [#/Vol] 4.60 10*6/uL 4.2-5.4 [facility] Blood hemoglobin measurement (mass/volume)Ordered By: Juani Maya on 08-08-2022 Hemoglobin (Bld) [Mass/Vol] 13.5 g/dL 12.0-15.0 [facility] Blood platelet mean volumeOr dered By: Juani Maya on 08-08-2022 Platelet mean volume (Bld) [Entitic vol] 10.9 fL 6.2-12.0 [facility] Determination of erythrocyte mean corpuscular volume (MCV)Ordered By: Juani Maya on 08-08-2022 MCV (RBC) [Entitic vol] 88.9 fL 81-99 [facility] Hematocrit Auto (Bld) [Volum e fraction]Ordered By: Junai Maya on 08-08-2022 Hematocrit (Bld) [Volume fraction] 40.9 % 37-47 [facility] Laboratory - Chemistry and C hemistry - challengeOrdered By: Juani Maya on 08-08-2022 ALP [Catalytic activity/Vol] 67 U/L 45-117 [facility] ALT [Catalytic activity/Vol] 30 U/L 13-56 [facility] CO2 [Moles/Vol] 25.0 mmol/L 21.0-32.0 [facility] Globulin (S) [Mass/Vol] 4.0 g/dL 2.2-4.2 [facility] Urea nitrogen/Creatinine [Mass ratio] 21.9 mg/mg 10-20 [facility] Laboratory - Hematology and Cell countsOrdered By: Juani Maya on 08-08-2022 Erythrocyte distribution width (RBC) [Entitic vol] 43.4 fL 35.1-43.9 [facility] Erythrocyte distribution width (RBC) [Ratio] 13.2 % 11.6-14.6 [facility] MCH (RBC) [Entitic mass] 29.3 pg 27.0-32.0 [facility] MCHC Auto (RBC) [Mass/Vol]Or dered By: Juani Maya on 08-08-2022 MCHC (RBC) [Mass/Vol] 33.0 g/dL 32-36 [facility] No Panel InformationOrdered By: Juani Maya on 08-08-2022 Estimated GFR (MDRD) Amer 37 mL/min >60 [facility] Comment on above: GFR Calc Estimated GFR (MDRD) Non-Af Amer 31 mL/min >60 [facility] Comment on above: Non- GFR Calc Parathyroid Hormone (Intact) 79.7 pg/mL 18.4-80.1 [facility] Vitamin D 25-Hydroxy 81.2 ng/mL [facility] Comment on above: Vitamin D 25(OH) Sta tus Range Deficiency <20 ng/mL (50nmol/L) Insufficiency 20 - 30 ng/mL (50 - 75 nmol/L) Sufficiency 30 - 100 ng/mL (75 - 250 nmol/L) Toxicity >100 ng/mL (>250 nmol/L) 29.3 pg 27.0-32.0 [facility] 13.2 % 11.6-14.6 [facility] 43.4 fl 35.1-43.9 [facility] 31 mL/min >60 [facility] 37 mL/min >60 [facility] 21.9 RATIO 10-20 [facility] 4.0 g/dL 2.2-4.2 [facility] 67 U/L 45-117 [facility] 30 U/L 13-56 [facility] 25.0 mmol/L 21.0-32.0 [facility] 81.2 ng/mL [facility] 79.7 pg/mL 18.4-80.1 [facility] Platelets bldOrdered By: Reji Maya on 08-08-2022 Platelets (Bld) [#/Vol] 251 10*3/uL 150-450 [facility] Serum or plasma albumin brian urement (mass/volume)Ordered By: Juani Maya on 08-08-2022 Albumin [Mass/Vol] 3.6 g/dL 3.2-5.0 [facility] Serum or plasma albumin/glob ulin mass ratioOrdered By: Juani Maya on 08-08-2022 Albumin/Globulin [Mass ratio] 0.9 {ratio} 0.9-2.4 [facility] Serum or plasma calcium brian urement (mass/volume)Ordered By: Juani Maya on 08-08-2022 Calcium [Mass/Vol] 10.3 mg/dL 8.5-10.1 [facility] Serum or plasma creatinine m easurement (mass/volume)Ordered By: Juani Maya on 08-08-2022 Creatinine [Mass/Vol] 1.69 mg/dL 0.55-1.02 [facility] Comment on above: The validity of the calculated GFR & GFRAA in patients over 70 years has not been determined. Clinical correlation is essential. Serum or plasma urea nitroge n measurement (mass/volume)Ordered By: Juani Maya on 08-08-2022 Urea nitrogen [Mass/Vol] 37 mg/dL 7-18 [facility] Thin prep Papanicolaou smear with manual screeningOrdered By: Juani Maya on 08-08-2022 Thin prep Papanicolaou smear with manual screening 20 U/L 15-37 [facility] Thin prep Papanicolaou smear with manual screening 9 5-15 [facility] Urine creatinine measurement (mass/volume)Ordered By: Juani Maya on 08-08-2022 Creatinine (U) [Mass/Vol] 29.90 mg/dL NO RANGE EST. [facility] Urine protein measurement (m ass/volume)Ordered By: Juani Maya on 08-08-2022 Protein (U) [Mass/Vol] mg/dL 0.0-11.8 [facility] Urine protein/creatinine mas s ratioOrdered By: Juani Maya on 08-08-2022 Protein/Creatinine (U) [Mass ratio] TNP [facility] Comment on above: Test not performed METABOLIC PANEL, BASIC (1397 1)Ordered By: Database Marketing Manager on 07-30-2022 Calcium [Mass/Vol] 10.9 mg/dL Abnormal 8.7-10.3 [facility]; [facility] Work Phone: Comment on above: PATIENT NOT FASTINGP ERFORMED BY: [employer] [id number] [employer] / Nuvem ShopAtrium Health Huntersville [id number] Chloride [Moles/Vol] 97 mmol/L Normal 96-106 Comp rehensive [facility]; [facility] Work Phone: Comment on above: PATIENT NOT FASTINGP ERFORMED BY: CB [facility] [id number] [address] Connected DataAtrium Health Huntersville [id number] CO2 [Moles/Vol] 21 mmol/L Normal 20-29 [facility]; [facility] Work Phone: Comment on above: PATIENT NOT FASTINGP ERFORMED BY: CB [facility] [id number] [place] Connected DataAtrium Health Huntersville [id number] Creatinine [Mass/Vol] 1.51 mg/dL Abnormal 0.57-1.00 [facility] prehensive Internal Medicine; [facility] Work Phone: Comment on above: PATIENT NOT FASTINGP ERFORMED BY: [employer] LabEventSneakerrp [id number] [place] Connected DataAtrium Health [facility] [id number] GFR/1.73 sq M.predicted among non-blacks MDRD (S/P/Bld) [Vol rate/Area] 33 mL/min/{1.73_m2} Abnormal Comprehensiv e Internal Medicine; [facility] Work Phone: Comment on above: PATIENT NOT FASTINGP ERFORMED BY: CB [facility] [id number] [address] RoadDublin [place] [id number] Glucose [Mass/Vol] 78 mg/dL Normal 70-99 [facility] Internal Medicine; [facility] Work Phone: Comment on above: PATIENT NOT FASTINGP ERFORMED BY: CB [facility] [id number] Holgu[address] RoadDublin [place] [id number] Potassium [Moles/Vol] 5.3 mmol/L Abnormal 3.5-5.2 [facility] prehensive Internal Medicine; [facility] Work Phone: Comment on above: PATIENT NOT FASTINGP ERFORMED BY: CB [facility] [id number] [address]gu[address] RoadDublin [place] [id number] Sodium [Moles/Vol] 137 mmol/L Normal 134-144 [facility] Internal Medicine; [facility] Work Phone: Comment on above: PATIENT NOT FASTINGP ERFORMED BY: CB [facility] [id number] Holguin RoadDuin [place] [id number] Urea nitrogen [Mass/Vol] 34 mg/dL Abnormal 8-27 [facility]; [facility] Work Phone: Comment on above: PATIENT NOT FASTINGP ERFORMED BY: CB [facility] [id number] [address] RoadDublin [place] [id number] Urea nitrogen/Creatinine [Mass ratio] 23 mg/mg Normal 12-28 [facility]; [facility] Work Phone: Comment on above: PATIENT NOT FASTINGP ERFORMED BY: CB [facility] [id number] [address] RoadDuin [place] [id number] Basophil percentageOrdered B y: Dr. Lal on 07-23-2022 Basophil percentage 124 mg/dL 74-106 [facility] Basophil percentage 136 mmol/L 136-145 [facility] Basophil percentage 4.3 mmol/L 3.5-5.1 [facility] [place] [place] Basophil percentage 104 mmol/L 98-107 [facility] Basophils (Bld) [#/Vol] 11.2 10*3/uL 4.4-11.0 [facility] Chloride [Moles/Vol] 104 mmol/L 98-107 [facility] Glucose [Mass/Vol] 124 mg/dL 74-106 [facility] Comment on above: Fasting Glucose resu lt from 100 to 125 mg/dL suggests IMPAIRED HOMEOSTASIS per A.D.A. criteria. Potassium [Moles/Vol] 4.3 mmol/L 3.5-5.1 [facility] Sodium [Moles/Vol] 136 mmol/L 136-145 [facility] WBC (Bld) [#/Vol] 11.2 10*3/uL 4.4-11.0 [facility] Blood erythrocytes count (nu mber/volume)Ordered By: Dr. Lal on 07-23-2022 RBC (Bld) [#/Vol] 4.28 10*6/uL 4.2-5.4 [facility] Blood hemoglobin measurement (mass/volume)Ordered By: Dr. Lal on 07-23-2022 Hemoglobin (Bld) [Mass/Vol] 12.5 g/dL 12.0-15.0 [facility] Blood platelet mean volumeOr dered By: Dr. Lal on 07-23-2022 Platelet mean volume (Bld) [Entitic vol] 11.1 fL 6.2-12.0 [facility] Determination of erythrocyte mean corpuscular volume (MCV)Ordered By: Dr. Lal on 07-23-2022 MCV (RBC) [Entitic vol] 89.5 fL 81-99 [facility] Hematocrit Auto (Bld) [Volum e fraction]Ordered By: Dr. Lal on 07-23-2022 Hematocrit (Bld) [Volume fraction] 38.3 % 37-47 [facility] Laboratory - Chemistry and C hemistry - challengeOrdered By: Dr. Lal on 07-23-2022 CO2 [Moles/Vol] 25.0 mmol/L 21.0-32.0 [facility] Urea nitrogen/Creatinine [Mass ratio] 21.3 mg/mg 10-20 [facility] Laboratory - Hematology and Cell countsOrdered By: Dr. Lal on 07-23-2022 Erythrocyte distribution width (RBC) [Entitic vol] 44.3 fL 35.1-43.9 [facility] Erythrocyte distribution width (RBC) [Ratio] 13.5 % 11.6-14.6 [facility] MCH (RBC) [Entitic mass] 29.2 pg 27.0-32.0 [facility] MCHC Auto (RBC) [Mass/Vol]Or dered By: Dr. Lal on 07-23-2022 MCHC (RBC) [Mass/Vol] 32.6 g/dL 32-36 [facility] No Panel InformationOrdered By: Dr. Lal on 07-23-2022 Estimated GFR (MDRD) Amer 41 mL/min >60 [facility] Comment on above: GFR Calc Estimated GFR (MDRD) Non-Af Amer 34 mL/min >60 [facility] Comment on above: Non- GFR Calc 29.2 pg 27.0-32.0 [facility] 13.5 % 11.6-14.6 [facility] 44.3 fl 35.1-43.9 [facility] 34 mL/min >60 [facility] 41 mL/min >60 [facility] 21.3 RATIO 10-20 [facility] 25.0 mmol/L 21.0-32.0 [facility] Platelets bldOrdered By: Dr. Lal on 07-23-2022 Platelets (Bld) [#/Vol] 282 10*3/uL 150-450 [facility] Serum or plasma calcium brian urement (mass/volume)Ordered By: Dr. Lal on 07-23-2022 Calcium [Mass/Vol] 10.8 mg/dL 8.5-10.1 [facility] Serum or plasma creatinine m easurement (mass/volume)Ordered By: Dr. Lal on 07-23-2022 Creatinine [Mass/Vol] 1.55 mg/dL 0.55-1.02 [facility] Comment on above: The validity of the calculated GFR & GFRAA in patients over 70 years has not been determined. Clinical correlation is essential. Serum or plasma urea nitroge n measurement (mass/volume)Ordered By: Dr. Lal on 07-23-2022 Urea nitrogen [Mass/Vol] 33 mg/dL 7-18 [facility] Thin prep Papanicolaou smear with manual screeningOrdered By: Dr. Lal on 07-23-2022 Thin prep Papanicolaou smear with manual screening 7 5-15 [facility] Absolute lymphocyte countOrd ered By: Dr. Luu on 07-17-2022 Lymphocytes Auto (Unsp spec) [#/Vol] 2.70 10*3/uL 0.83-4.51 [facility] Basophil percentageOrdered B y: Dr. Luu on 07-17-2022 Basophil percentage 105 mg/dL 74-106 [facility] Basophil percentage 137 mmol/L 136-145 [facility] Basophil percentage 4.6 mmol/L 3.5-5.1 [facility] Basophil percentage 108 mmol/L 98-107 [facility] Basophils (Bld) [#/Vol] 9.4 10*3/uL 4.4-11.0 [facility] Basophils (Bld) [#/Vol] 5.4 10*3/uL 2.0-7.7 [facility] Basophils/100 WBC (Bld) 0.5 % 0-1 [facility] Basophils/100 WBC (Bld) 57.7 % 47-70 [facility] Basophils/100 WBC (Bld) 3.5 % 0-5 [facility] Chloride [Moles/Vol] 108 mmol/L 98-107 [facility] Eosinophils/100 WBC (Bld) 3.5 % 0-5 [facility] Glucose [Mass/Vol] 105 mg/dL 74-106 [facility] Comment on above: Fasting Glucose resu lt from 100 to 125 mg/dL suggests IMPAIRED HOMEOSTASIS per A.D.A. criteria. Neutrophils (Bld) [#/Vol] 5.4 10*3/uL 2.0-7.7 [facility] Neutrophils/100 WBC (Bld) 57.7 % 47-70 [facility] Potassium [Moles/Vol] 4.6 mmol/L 3.5-5.1 [facility] Sodium [Moles/Vol] 137 mmol/L 136-145 [facility] WBC (Bld) [#/Vol] 9.4 10*3/uL 4.4-11.0 [facility] Blood erythrocytes count (nu mber/volume)Ordered By: Dr. Luu on 07-17-2022 RBC (Bld) [#/Vol] 3.89 10*6/uL 4.2-5.4 [facility] Blood hemoglobin measurement (mass/volume)Ordered By: Dr. Luu on 07-17-2022 Hemoglobin (Bld) [Mass/Vol] 11.6 g/dL 12.0-15.0 [facility] Blood lymphocytes/100 leukoc ytesOrdered By: Dr. Luu on 07-17-2022 Lymphocytes/100 WBC (Bld) 28.6 % 19-41 [facility] Blood monocytes/100 leukocyt esOrdered By: Dr. Luu on 07-17-2022 Monocytes/100 WBC (Bld) 9.4 % 0-10 [facility] Blood platelet mean volumeOr dered By: Dr. Luu on 07-17-2022 Platelet mean volume (Bld) [Entitic vol] 10.1 fL 6.2-12.0 [facility] Determination of erythrocyte mean corpuscular volume (MCV)Ordered By: Dr. Luu on 07-17-2022 MCV (RBC) [Entitic vol] 90.7 fL 81-99 [facility] Glucose Glucometer (dC) [M ass/Vol]Ordered By: Dr. Luu on 07-17-2022 Glucose [Mass/Vol] 126 mg/dL 74-106 [facility] Comment on above: MANAGEMENT OF PATIEN T CARE PER NURSING PROTOCOL Hematocrit Auto (Bld) [Volum e fraction]Ordered By: Dr. Luu on 07-17-2022 Hematocrit (Bld) [Volume fraction] 35.3 % 37-47 [facility] Laboratory - Chemistry and C hemistry - challengeOrdered By: Dr. Luu on 07-17-2022 CO2 [Moles/Vol] 25.0 mmol/L 21.0-32.0 [facility] Urea nitrogen/Creatinine [Mass ratio] 29.3 mg/mg 10-20 [facility] Laboratory - Hematology and Cell countsOrdered By: Dr. Luu on 07-17-2022 Erythrocyte distribution width (RBC) [Entitic vol] 45.0 fL 35.1-43.9 [facility] Erythrocyte distribution width (RBC) [Ratio] 13.3 % 11.6-14.6 [facility] Immature granulocytes/100 WBC (Bld) 0.300 % 0.0-0.9 [facility] Comment on above: IG% - Immature Granu locytes (promyelocytes, myelocytes and metamyelocytes) > 1% indicates that a LEFT SHIFT is Present. MCH (RBC) [Entitic mass] 29.8 pg 27.0-32.0 [facility] Nucleated RBC/100 WBC (Bld) [Ratio] 0 % 0-5 [facility] MCHC Auto (RBC) [Mass/Vol]Or dered By: Dr. Luu on 07-17-2022 MCHC (RBC) [Mass/Vol] 32.9 g/dL 32-36 [facility] No Panel InformationOrdered By: Dr. Luu on 07-17-2022 Estimated Creatinine Clearance Calc 25.23 ml/min [facility] Estimated GFR (MDRD) Amer 53 mL/min >60 [facility] Comment on above: GFR Calc Estimated GFR (MDRD) Non-Af Amer 44 mL/min >60 [facility] Comment on above: Non- GFR Calc 29.8 pg 27.0-32.0 [facility] 13.3 % 11.6-14.6 [facility] 45.0 fl 35.1-43.9 [facility] 0.300 % 0.0-0.9 [facility] 0 % 0-5 [facility] 44 mL/min >60 [facility] 53 mL/min >60 [facility] 25.23 ml/min [facility] 29.3 RATIO 10-20 [facility] 25.0 mmol/L 21.0-32.0 [facility] Platelets bldOrdered By: Dr. Luu on 07-17-2022 Platelets (Bld) [#/Vol] 218 10*3/uL 150-450 [facility] Serum or plasma calcium brian urement (mass/volume)Ordered By: Dr. Luu on 07-17-2022 Calcium [Mass/Vol] 9.5 mg/dL 8.5-10.1 [facility] Serum or plasma creatinine m easurement (mass/volume)Ordered By: Dr. Luu on 07-17-2022 Creatinine [Mass/Vol] 1.23 mg/dL 0.55-1.02 [facility] Comment on above: The validity of the calculated GFR & GFRAA in patients over 70 years has not been determined. Clinical correlation is essential. Serum or plasma urea nitroge n measurement (mass/volume)Ordered By: Dr. Luu on 07-17-2022 Urea nitrogen [Mass/Vol] 36 mg/dL 7-18 [facility] Thin prep Papanicolaou smear with manual screeningOrdered By: Dr. Luu on 07-17-2022 Thin prep Papanicolaou smear with manual screening 4 5-15 [facility] Basophil percentageOrdered B y: Dr. Luu on 07-16-2022 Basophil percentage 3.2 mg/dL 2.5-4.9 [facility] - Chemistry and C hemistry - challengeOrdered By: Dr. Luu on 07-16-2022 Magnesium [Mass/Vol] 2.6 mg/dL 1.6-2.6 [facility] No Panel InformationOrdered By: Dr. Luu on 07-16-2022 2.6 mg/dL 1.6-2.6 [facility] Basophil percentageOrdered B y: Dr. Mishra on 07-14-2022 Basophil percentage 6.4 g/dL 6.4-8.2 [facility] Basophil percentage 0.90 mg/dL 0.20-1.00 [facility] Bilirubin [Mass/Vol] 0.90 mg/dL 0.20-1.00 [facility] Comment on above: For patients on eltr ombopag therapy, use of [employer] [place] TBIL is not recommended. Protein [Mass/Vol] 6.4 g/dL 6.4-8.2 [facility] - Chemistry and C hemistry - challengeOrdered By: Dr. Mishra on 07-14-2022 ALP [Catalytic activity/Vol] 61 U/L 45-117 [facility] ALT [Catalytic activity/Vol] 20 U/L 13-56 [facility] Globulin (S) [Mass/Vol] 3.5 g/dL 2.2-4.2 [facility] No Panel InformationOrdered By: Dr. Mishra on 07-14-2022 3.5 g/dL 2.2-4.2 [facility] 61 U/L 45-117 [facility] 20 U/L 13-56 [facility] Serum or plasma albumin brian urement (mass/volume)Ordered By: Dr. Mishra on 07-14-2022 Albumin [Mass/Vol] 2.9 g/dL 3.2-5.0 [facility] Serum or plasma albumin/glob ulin mass ratioOrdered By: Dr. Mishra on 07-14-2022 Albumin/Globulin [Mass ratio] 0.8 {ratio} 0.9-2.4 [facility] Thin prep Papanicolaou smear with manual screeningOrdered By: Dr. Mishra on 07-14-2022 Thin prep Papanicolaou smear with manual screening 13 U/L 15-37 [facility] Absolute lymphocyte counton 07-13-2022 Lymphocytes Auto (Unsp spec) [#/Vol] 3.16 10*3/uL 0.83-4.51 [facility] Work Phone: Basophil percentageon 2021 Potassium [Moles/Vol] 4.8 mmol/L 3.5-5.1 [facility] Work Phone: Comment on above: Moderate Hemolysis, Result may be falsely increased. Basophils/100 WBC (Bld) 0.9 % 0-1 [facility] Work Phone: Bilirubin [Mass/Vol] 0.80 mg/dL 0.20-1.00 [facility] Work Phone: Comment on above: For patients on eltr ombopag therapy, use of [employer] [place] TBIL is not recommended. Chloride [Moles/Vol] 105 mmol/L 98-107 [facility] Work Phone: Eosinophils/100 WBC (Bld) 2.7 % 0-5 [facility] Work Phone: Glucose [Mass/Vol] 101 mg/dL 74-106 [facility] Work Phone: Comment on above: Fasting Glucose resu lt from 100 to 125 mg/dL suggests IMPAIRED HOMEOSTASIS per A.D.A. criteria. Neutrophils (Bld) [#/Vol] 4.5 10*3/uL 2.0-7.7 [facility] Work Phone: Neutrophils/100 WBC (Bld) 51.9 % 47-70 [facility] Work Phone: Protein [Mass/Vol] 7.4 g/dL 6.4-8.2 [facility] Work Phone: Sodium [Moles/Vol] 138 mmol/L 136-145 [facility] Work Phone: WBC (Bld) [#/Vol] 8.7 10*3/uL 4.4-11.0 [facility] Work Phone: Basophil percentageOrdered B y: Dr. Davila on 07-13-2022 Basophil percentage 0 SEEN /hpf 0-5 [facility] Bilirubin Test strip Ql (U)O rdered By: Dr. Davila on 07-13-2022 Bilirubin Ql (U) Negative Negative [facility] Blood erythrocytes count (nu mber/volume)on 07-13-2022 RBC (Bld) [#/Vol] 4.42 10*6/uL 4.2-5.4 [facility] Work Phone: Blood hemoglobin measurement (mass/volume)on 07-13-2022 Hemoglobin (Bld) [Mass/Vol] 13.1 g/dL 12.0-15.0 [facility] Work Phone: Blood lymphocytes/100 leukoc yteson 07-13-2022 Lymphocytes/100 WBC (Bld) 36.5 % 19-41 [facility] Work Phone: Blood monocytes/100 leukocyt eson 07-13-2022 Monocytes/100 WBC (Bld) 7.9 % 0-10 [facility] Work Phone: Blood platelet mean volumeon 07-13-2022 Platelet mean volume (Bld) [Entitic vol] 11.1 fL 6.2-12.0 [facility] Work Phone: Determination of erythrocyte mean corpuscular volume (MCV)on 07-13-2022 MCV (RBC) [Entitic vol] 90.0 fL 81-99 [facility] Work Phone: Hematocrit Auto (Bld) [Volum e fraction]on 07-13-2022 Hematocrit (Bld) [Volume fraction] 39.8 % 37-47 [facility] Work Phone: Influenza virus A and B and SARS-CoV-2 (COVID-19) Ag panel - Upper respiratory specimOrdered By: Dr. Davila on 07-13-2022 SARS-CoV-2 (COVID-19) RNA KAYLIE+probe Ql (Resp) [facility] Ketones Test strip Ql (U)Ord ered By: Dr. aDvila on 07-13-2022 Ketones Ql (U) Negative Negative [facility] Laboratory - Chemistry and C hemistry - challengeon 07-13-2022 ALP [Catalytic activity/Vol] 69 U/L 45-117 [facility] Work Phone: ALT [Catalytic activity/Vol] 25 U/L 13-56 [facility] Work Phone: CO2 [Moles/Vol] 27.0 mmol/L 21.0-32.0 [facility] Work Phone: Globulin (S) [Mass/Vol] 4.1 g/dL 2.2-4.2 [facility] Work Phone: Urea nitrogen/Creatinine [Mass ratio] 23.4 mg/mg 10-20 [facility] Work Phone: Laboratory - Chemistry and C hemistry - challengeOrdered By: Dr. Davila on 07-13-2022 Lipase [Catalytic activity/Vol] 127 U/L 73-393 [facility] Laboratory - Hematology and Cell countson 07-13-2022 Erythrocyte distribution width (RBC) [Entitic vol] 44.9 fL 35.1-43.9 [facility] Work Phone: Erythrocyte distribution width (RBC) [Ratio] 13.4 % 11.6-14.6 [facility] Work Phone: Immature granulocytes/100 WBC (Bld) 0.100 % 0.0-0.9 [facility] Work Phone: Comment on above: IG% - Immature Granu locytes (promyelocytes, myelocytes and metamyelocytes) > 1% indicates that a LEFT SHIFT is Present. MCH (RBC) [Entitic mass] 29.6 pg 27.0-32.0 [facility] Work Phone: Nucleated RBC/100 WBC (Bld) [Ratio] 0 % 0-5 [facility] Work Phone: MCHC Auto (RBC) [Mass/Vol]on 07-13-2022 MCHC (RBC) [Mass/Vol] 32.9 g/dL 32-36 [facility] Work Phone: Mucus LM Ql (Urine sed)Order ed By: Dr. Davila on 07-13-2022 Mucus Ql (Urine sed) 0 SEEN /hpf [facility] Nitrite Test strip Ql (U)Ord ered By: Dr. Davila on 07-13-2022 Nitrite Ql (U) Negative Negative [facility] No Panel Informationon 07-13 Estimated Creatinine Clearance Calc 24.25 ml/min [facility] Work Phone: Estimated GFR (MDRD) Amer 51 mL/min >60 [facility] Work Phone: Comment on above: GFR Calc Estimated GFR (MDRD) Non-Af Amer 42 mL/min >60 [facility] Work Phone: Comment on above: Non- GFR Calc No Panel InformationOrdered By: Dr. Davila on 07-13-2022 Troponin I High Sensitivity 15 pg/mL 3.0-54.0 [facility] Comment on above: Please Note: New Sue t Units and Gender Specific Reference Ranges. For more information see Policy Stat Procedure [place] High Sensitivity Troponin (TNIH) and attachments. 127 U/L 73-393 [facility] 15 pg/mL 3.0-54.0 [facility] Platelets bldon 07-13-2022 Platelets (Bld) [#/Vol] 271 10*3/uL 150-450 [facility] Work Phone: Protein Test strip Ql (U)Ord ered By: Dr. Davila on 07-13-2022 Protein Ql (U) Negative Negative [facility] Serum or plasma albumin brian urement (mass/volume)on 07-13-2022 Albumin [Mass/Vol] 3.3 g/dL 3.2-5.0 [facility] Work Phone: Serum or plasma albumin/glob ulin mass ratioon 07-13-2022 Albumin/Globulin [Mass ratio] 0.8 {ratio} 0.9-2.4 [facility] Work Phone: Serum or plasma calcium brian urement (mass/volume)on 07-13-2022 Calcium [Mass/Vol] 10.3 mg/dL 8.5-10.1 [facility] Work Phone: Serum or plasma creatinine m easurement (mass/volume)on 07-13-2022 Creatinine [Mass/Vol] 1.28 mg/dL 0.55-1.02 [facility] Work Phone: Comment on above: The validity of the calculated GFR & GFRAA in patients over 70 years has not been determined. Clinical correlation is essential. Serum or plasma urea nitroge n measurement (mass/volume)on 07-13-2022 Urea nitrogen [Mass/Vol] 30 mg/dL 7-18 [facility] Work Phone: Squamous epithelial cells de tection in urine sediment by light microscopyOrdered By: Dr. Davila on 07-13-2022 Epithelial cells.squamous LM Ql (Urine sed) 0 SEEN /hpf 5-10 [facility] Thin prep Papanicolaou smear with manual screeningon 07-13-2022 Thin prep Papanicolaou smear with manual screening 19 U/L 15-37 [facility] Work Phone: Comment on above: Slight Hemolysis, Re sult may be falsely increased. Thin prep Papanicolaou smear with manual screening 6 5-15 [facility] Work Phone: Urine blood detectionOrdered By: Dr. Davila on 07-13-2022 RBC Ql (U) Negative Negative [facility] RBC Ql (U) 0 SEEN /hpf 0-5 [facility] Urine clarityOrdered By: Dr. Davila on 07-13-2022 Clarity (U) Clear Clear [facility] Urine color determinationOrd ered By: Dr. Davila on 07-13-2022 Color (U) Straw Yellow [facility] Urine glucose detectionOrder ed By: Dr. Davila on 07-13-2022 Glucose Ql (U) Normal mg/dl Normal [facility] Urine leukocyte esterase det ection by dipstickOrdered By: Dr. Davila on 07-13-2022 Leukocyte esterase Test strip Ql (U) Negative Negative [facility] Urine pHOrdered By: Dr. Hetal mccoy on 07-13-2022 pH (U) 7.0 [pH] 5.0 - 8.0 [facility] Urine sediment bacteria coun t by microscopy (number/high power field)Ordered By: Dr. Davila on 07-13-2022 Bacteria LM.HPF (Urine sed) [#/Area] 0 /[HPF] None Seen [facility] Urine specific gravity measu rementOrdered By: Dr. Davila on 07-13-2022 Specific gravity (U) [Rel density] 1.005 1.002-1.03 0 [facility] Urobilinogen Auto test strip Ql (U)Ordered By: Dr. Davila on 07-13-2022 Urobilinogen Ql (U) Normal mg/dl Normal [facility] Absolute lymphocyte countOrd ered By: Dr. Gamez on 07-07-2022 Lymphocytes Auto (Unsp spec) [#/Vol] 2.93 10*3/uL 0.83-4.51 [facility] Basophil percentageOrdered B y: Dr. Gamez on 07-07-2022 Basophil percentage 115 mg/dL 74-106 [facility] Basophil percentage 136 mmol/L 136-145 [facility] Basophil percentage 4.0 mmol/L 3.5-5.1 [facility] Basophil percentage 101 mmol/L 98-107 [facility] Basophils (Bld) [#/Vol] 8.1 10*3/uL 4.4-11.0 [facility] Basophils (Bld) [#/Vol] 3.9 10*3/uL 2.0-7.7 [facility] Basophils/100 WBC (Bld) 0.7 % 0-1 [facility] Basophils/100 WBC (Bld) 47.7 % 47-70 [facility] Basophils/100 WBC (Bld) 4.0 % 0-5 [facility] Chloride [Moles/Vol] 101 mmol/L 98-107 [facility] Eosinophils/100 WBC (Bld) 4.0 % 0-5 [facility] Glucose [Mass/Vol] 115 mg/dL 74-106 [facility] Comment on above: Fasting Glucose resu lt from 100 to 125 mg/dL suggests IMPAIRED HOMEOSTASIS per A.D.A. criteria. Neutrophils (Bld) [#/Vol] 3.9 10*3/uL 2.0-7.7 [facility] Neutrophils/100 WBC (Bld) 47.7 % 47-70 [facility] Potassium [Moles/Vol] 4.0 mmol/L 3.5-5.1 [facility] Sodium [Moles/Vol] 136 mmol/L 136-145 [facility] WBC (Bld) [#/Vol] 8.1 10*3/uL 4.4-11.0 [facility] Blood erythrocytes count (nu mber/volume)Ordered By: Dr. Gamez on 07-07-2022 RBC (Bld) [#/Vol] 3.95 10*6/uL 4.2-5.4 [facility] Blood hemoglobin measurement (mass/volume)Ordered By: Dr. Gamez on 07-07-2022 Hemoglobin (Bld) [Mass/Vol] 11.6 g/dL 12.0-15.0 [facility] Blood lymphocytes/100 leukoc ytesOrdered By: Dr. Gamez on 07-07-2022 Lymphocytes/100 WBC (Bld) 36.3 % 19-41 [facility] Blood monocytes/100 leukocyt esOrdered By: Dr. Gamez on 07-07-2022 Monocytes/100 WBC (Bld) 10.9 % 0-10 [facility] Blood platelet mean volumeOr dered By: Dr. Gamez on 07-07-2022 Platelet mean volume (Bld) [Entitic vol] 10.4 fL 6.2-12.0 [facility] Determination of erythrocyte mean corpuscular volume (MCV)Ordered By: Dr. Gamez on 07-07-2022 MCV (RBC) [Entitic vol] 90.6 fL 81-99 [facility] Glucose Glucometer (BldC) [M ass/Vol]Ordered By: Dr. Gamez on 07-07-2022 Glucose [Mass/Vol] 123 mg/dL 74-106 [facility] Comment on above: MANAGEMENT OF PATIEN T CARE PER NURSING PROTOCOL Hematocrit Auto (Bld) [Volum e fraction]Ordered By: Dr. Gamez on 07-07-2022 Hematocrit (Bld) [Volume fraction] 35.8 % 37-47 [facility] Laboratory - Chemistry and C hemistry - challengeOrdered By: Dr. Gamez on 07-07-2022 CO2 [Moles/Vol] 29.0 mmol/L 21.0-32.0 [facility] Urea nitrogen/Creatinine [Mass ratio] 28.9 mg/mg 10-20 [facility] Laboratory - Hematology and Cell countsOrdered By: Dr. Gamez on 07-07-2022 Erythrocyte distribution width (RBC) [Entitic vol] 46.3 fL 35.1-43.9 [facility] Erythrocyte distribution width (RBC) [Ratio] 13.9 % 11.6-14.6 [facility] Immature granulocytes/100 WBC (Bld) 0.400 % 0.0-0.9 [facility] Comment on above: IG% - Immature Granu locytes (promyelocytes, myelocytes and metamyelocytes) > 1% indicates that a LEFT SHIFT is Present. MCH (RBC) [Entitic mass] 29.4 pg 27.0-32.0 [facility] Nucleated RBC/100 WBC (Bld) [Ratio] 0 % 0-5 [facility] MCHC Auto (RBC) [Mass/Vol]Or dered By: Dr. Gamez on 07-07-2022 MCHC (RBC) [Mass/Vol] 32.4 g/dL 32-36 [facility] No Panel InformationOrdered By: Dr. Gamez on 07-07-2022 Estimated Creatinine Clearance Calc 25.65 ml/min [facility] Estimated GFR (MDRD) Amer 54 mL/min >60 [facility] Comment on above: GFR Calc Estimated GFR (MDRD) Non-Af Amer 45 mL/min >60 [facility] Comment on above: Non- GFR Calc 29.4 pg 27.0-32.0 [facility] 13.9 % 11.6-14.6 [facility] 46.3 fl 35.1-43.9 [facility] 0.400 % 0.0-0.9 [facility] 0 % 0-5 [facility] 45 mL/min >60 [facility] 54 mL/min >60 [facility] 25.65 ml/min [facility] 28.9 RATIO 10-20 [facility] 29.0 mmol/L 21.0-32.0 [facility] Platelets bldOrdered By: Dr. Gamez on 07-07-2022 Platelets (Bld) [#/Vol] 219 10*3/uL 150-450 [facility] Serum or plasma calcium brian urement (mass/volume)Ordered By: Dr. Gamez on 07-07-2022 Calcium [Mass/Vol] 9.7 mg/dL 8.5-10.1 [facility] Serum or plasma creatinine m easurement (mass/volume)Ordered By: Dr. Gamez on 07-07-2022 Creatinine [Mass/Vol] 1.21 mg/dL 0.55-1.02 [facility] Comment on above: The validity of the calculated GFR & GFRAA in patients over 70 years has not been determined. Clinical correlation is essential. Serum or plasma urea nitroge n measurement (mass/volume)Ordered By: Dr. Gamez on 07-07-2022 Urea nitrogen [Mass/Vol] 35 mg/dL 02-04 [facility] Thin prep Papanicolaou smear with manual screeningOrdered By: Dr. Gamez on 07-07-2022 Thin prep Papanicolaou smear with manual screening 6 12-02 [facility] No Panel InformationOrdered By: Dr. Gamez on 07-04-2022 Troponin I High Sensitivity 12 pg/mL 3.0-54.0 [facility] Comment on above: Please Note: New Sue t Units and Gender Specific Reference Ranges. For more information see Policy Stat Procedure [place] High Sensitivity Troponin (TNIH) and attachments. 12 pg/mL 3.0-54.0 [facility] Absolute lymphocyte counton 07-02-2022 Lymphocytes Auto (Unsp spec) [#/Vol] 2.55 10*3/uL 0.83-4.51 [facility] Work Phone: Basophil percentageOrdered B y: Dr. Kingsley on 07-02-2022 Basophil percentage 0 SEEN /hpf 0-5 [facility] Basophil percentage 7.2 g/dL 6.4-8.2 [facility] Basophil percentage 1.10 mg/dL 0.20-1.00 [facility] Bilirubin [Mass/Vol] 1.10 mg/dL 0.20-1.00 [facility] Comment on above: For patients on eltr ombopag therapy, use of [employer]ension [place] TBIL is not recommended. Protein [Mass/Vol] 7.2 g/dL 6.4-8.2 [facility] Basophil percentageon 2021 Basophils/100 WBC (Bld) 0.7 % 0-1 [facility] Work Phone: Chloride [Moles/Vol] 105 mmol/L 98-107 [facility] Work Phone: Eosinophils/100 WBC (Bld) 2.4 % 0-5 [facility] Work Phone: Glucose [Mass/Vol] 149 mg/dL 74-106 [facility] Work Phone: Comment on above: Fasting Glucose resu lt greater than or equal to 126 mg/dL suggests DIABETES MELLITUS per A.D.A. criteria. Neutrophils (Bld) [#/Vol] 4.9 10*3/uL 2.0-7.7 [facility] Work Phone: Neutrophils/100 WBC (Bld) 57.9 % 47-70 [facility] Work Phone: Potassium [Moles/Vol] 4.4 mmol/L 3.5-5.1 [facility] Work Phone: Sodium [Moles/Vol] 136 mmol/L 136-145 [facility] Work Phone: WBC (Bld) [#/Vol] 8.5 10*3/uL 4.4-11.0 [facility] Work Phone: Bilirubin Test strip Ql (U)O rdered By: Dr. Kingsley on 07-02-2022 Bilirubin Ql (U) Negative Negative [facility] Blood erythrocytes count (nu mber/volume)on 07-02-2022 RBC (Bld) [#/Vol] 4.12 10*6/uL 4.2-5.4 [facility] Work Phone: Blood hemoglobin measurement (mass/volume)on 07-02-2022 Hemoglobin (Bld) [Mass/Vol] 12.3 g/dL 12.0-15.0 [facility] Work Phone: Blood lymphocytes/100 leukoc yteson 07-02-2022 Lymphocytes/100 WBC (Bld) 30.0 % 19-41 [facility] Work Phone: Blood monocytes/100 leukocyt eson 07-02-2022 Monocytes/100 WBC (Bld) 8.8 % 0-10 [facility] Work Phone: Blood platelet mean volumeon 07-02-2022 Platelet mean volume (Bld) [Entitic vol] 10.0 fL 6.2-12.0 [facility] Work Phone: Determination of erythrocyte mean corpuscular volume (MCV)on 07-02-2022 MCV (RBC) [Entitic vol] 89.6 fL 81-99 [facility] Work Phone: Hematocrit Auto (Bld) [Volum e fraction]on 07-02-2022 Hematocrit (Bld) [Volume fraction] 36.9 % 37-47 [facility] Work Phone: Influenza virus A and B and SARS-CoV-2 (COVID-19) Ag panel - Upper respiratory specimOrdered By: Dr. Kingsley on 07-02-2022 SARS-CoV-2 (COVID-19) RNA KAYLIE+probe Ql (Resp) [facility] Ketones Test strip Ql (U)Ord ered By: Dr. Kingsley on 07-02-2022 Ketones Ql (U) Negative Negative [facility] Laboratory - Chemistry and C hemistry - challengeOrdered By: Dr. Kingsley on 07-02-2022 ALP [Catalytic activity/Vol] 67 U/L 45-117 [facility] ALT [Catalytic activity/Vol] 24 U/L 13-56 [facility] Globulin (S) [Mass/Vol] 3.9 g/dL 2.2-4.2 [facility] Natriuretic peptide B (Bld) [Mass/Vol] 228.1 pg/mL 0-100 [facility] Laboratory - Chemistry and C hemistry - challengeon 07-02-2022 CO2 [Moles/Vol] 26.0 mmol/L 21.0-32.0 [facility] Work Phone: Urea nitrogen/Creatinine [Mass ratio] 16.8 mg/mg 10-20 [facility] Work Phone: Laboratory - Hematology and Cell countson 07-02-2022 Erythrocyte distribution width (RBC) [Entitic vol] 46.8 fL 35.1-43.9 [facility] Work Phone: Erythrocyte distribution width (RBC) [Ratio] 14.2 % 11.6-14.6 [facility] Work Phone: Immature granulocytes/100 WBC (Bld) 0.200 % 0.0-0.9 [facility] Work Phone: Comment on above: IG% - Immature Granu locytes (promyelocytes, myelocytes and metamyelocytes) > 1% indicates that a LEFT SHIFT is Present. MCH (RBC) [Entitic mass] 29.9 pg 27.0-32.0 [facility] Work Phone: Nucleated RBC/100 WBC (Bld) [Ratio] 0 % 0-5 [facility] Work Phone: MCHC Auto (RBC) [Mass/Vol]on 07-02-2022 MCHC (RBC) [Mass/Vol] 33.3 g/dL 32-36 [facility]: Mucus LM Ql (Urine sed)Order ed By: Dr. Kingsley on 07-02-2022 Mucus Ql (Urine sed) 0 SEEN /hpf [facility] Nitrite Test strip Ql (U)Ord ered By: Dr. Kingsley on 07-02-2022 Nitrite Ql (U) Negative Negative [facility] No Panel Informationon 07-02 Estimated Creatinine Clearance Calc 24.83 ml/min [facility] Work Phone: Estimated GFR (MDRD) Amer 52 mL/min >60 [facility] Work Phone: Comment on above: GFR Calc Estimated GFR (MDRD) Non-Af Amer 43 mL/min >60 [facility] Work Phone: Comment on above: Non- GFR Calc No Panel InformationOrdered By: Dr. Kingsley on 07-02-2022 3.9 g/dL 2.2-4.2 [facility] 67 U/L 45-117 [facility] 24 U/L 13-56 [facility] 228.1 pg/mL 0-100 [facility] Platelets bldon 07-02-2022 Platelets (Bld) [#/Vol] 272 10*3/uL 150-450 [facility] Work Phone: Protein Test strip Ql (U)Ord ered By: Dr. Kingsley on 07-02-2022 Protein Ql (U) Negative Negative [facility] RSV Ag EIAOrdered By: Dr. Geno chandler on 07-02-2022 RSV Ag Immune stain Ql (Tiss) [facility] Serum or plasma albumin brian urement (mass/volume)Ordered By: Dr. Kingsley on 07-02-2022 Albumin [Mass/Vol] 3.3 g/dL 3.2-5.0 [facility] Serum or plasma albumin/glob ulin mass ratioOrdered By: Dr. Kingsley on 07-02-2022 Albumin/Globulin [Mass ratio] 0.8 {ratio} 0.9-2.4 [facility] Serum or plasma calcium brian urement (mass/volume)on 07-02-2022 Calcium [Mass/Vol] 10.1 mg/dL 8.5-10.1 [facility] Work Phone: Serum or plasma creatinine m easurement (mass/volume)on 07-02-2022 Creatinine [Mass/Vol] 1.25 mg/dL 0.55-1.02 [facility] Work Phone: Comment on above: The validity of the calculated GFR & GFRAA in patients over 70 years has not been determined. Clinical correlation is essential. Serum or plasma urea nitroge n measurement (mass/volume)on 07-02-2022 Urea nitrogen [Mass/Vol] 21 mg/dL 7-18 [facility] Work Phone: Squamous epithelial cells de tection in urine sediment by light microscopyOrdered By: Dr. Kingsley on 07-02-2022 Epithelial cells.squamous LM Ql (Urine sed) 0-5 SEEN /hpf 5-10 [facility] Thin prep Papanicolaou smear with manual screeningOrdered By: Dr. Kingsley on 07-02-2022 Thin prep Papanicolaou smear with manual screening 12 U/L 15-37 [facility] Thin prep Papanicolaou smear with manual screeningon 07-02-2022 Thin prep Papanicolaou smear with manual screening 5 5-15 [facility] Work Phone: Urine blood detectionOrdered By: Dr. Kingsley on 07-02-2022 RBC Ql (U) Negative Negative [facility] RBC Ql (U) 0 SEEN /hpf 0-5 [facility] Urine clarityOrdered By: Dr. Kingsley on 07-02-2022 Clarity (U) Clear Clear [facility] Urine color determinationOrd ered By: Dr. Kingsley on 07-02-2022 Color (U) Yellow Yellow [facility] Urine glucose detectionOrder ed By: Dr. Kingsley on 07-02-2022 Glucose Ql (U) Normal mg/dl Normal [facility] Urine leukocyte esterase det ection by dipstickOrdered By: Dr. Kingsley on 07-02-2022 Leukocyte esterase Test strip Ql (U) 25 /ul Negative [facility] Urine pHOrdered By: Dr. Rufino lozano on 07-02-2022 pH (U) 6.5 [pH] 5.0 - 8.0 [facility] Urine sediment bacteria coun t by microscopy (number/high power field)Ordered By: Dr. Kingsley on 07-02-2022 Bacteria LM.HPF (Urine sed) [#/Area] 0 /[HPF] None Seen [facility] Urine specific gravity measu rementOrdered By: Dr. Kingsley on 07-02-2022 Specific gravity (U) [Rel density] 1.010 1.002-1.03 0 [facility] Urobilinogen Auto test strip Ql (U)Ordered By: Dr. Kingsley on 07-02-2022 Urobilinogen Ql (U) Normal mg/dl Normal [facility] CBC & PLATELETS (AUTO) ([id number])Ordered By: Database Marketing Manager on 06-25-2022 Erythrocyte distribution width (RBC) [Ratio] 13.3 % Normal 11.7-15.4 [facility]; [facility] Work Phone: Comment on above: PATIENT NOT FASTINGP ERFORMED BY: [employer] ([place] LabBlend70 [employer] / Nuvem ShopAtrium Health Huntersville [id number] Hematocrit (Bld) [Volume fraction] 36.5 % Normal 34.0-46.6 [facility]; [facility] Work Phone: Comment on above: PATIENT NOT FASTINGP ERFORMED BY: [employer] LabEventSneakerrp [id number] [employer] / Nuvem ShopAtrium Health Huntersville [id number] Hemoglobin (Bld) [Mass/Vol] 12.0 g/dL Normal 11.1-15.9 [facility]; [facility] Work Phone: Comment on above: PATIENT NOT FASTINGP ERFORMED BY: [employer] LabEventSneakerrp [id number] [address] ConductorUNC Health Lenoir [id number] MCH (RBC) [Entitic mass] 29.3 pg Normal 26.6-33.0 [facility]; [facility] Work Phone: Comment on above: PATIENT NOT FASTINGP ERFORMED BY: [employer] ([place] LabBlend70 [place] ConductorUNC Health Lenoir [id number] MCHC (RBC) [Mass/Vol] 32.9 g/dL Normal 31.5-35.7 [facility]; [facility] Work Phone: Comment on above: PATIENT NOT FASTINGP ERFORMED BY: HALEIGH [place]6370 Chelsie FloresAtrium Health Huntersville [id number] MCV (RBC) [Entitic vol] 89 fL Normal 79-97 C omprehensive [facility]; [facility] Work Phone: Comment on above: PATIENT NOT FASTINGP ERFORMED BY: HALEIGH [place] [facility] [id number] Platelets (Bld) [#/Vol] 233 10*3/uL Normal 150-450 [facility]; [facility] Work Phone: Comment on above: PATIENT NOT FASTINGP ERFORMED BY: HALEIGH Dallas6370 HolguinGeneral Leonard Wood [facility] [id number] RBC (Bld) [#/Vol] 4.10 10*6/uL Normal 3.77-5.28 [facility] Work Phone: Comment on above: PATIENT NOT FASTINGP ERFORMED BY: HALEIGH Dallas6370 HolguinGeneral Leonard Wood [facility] Hospital [id number] WBC (Bld) [#/Vol] 9.4 10*3/uL Normal 3.4-10.8 [facility]; [facility] Work Phone: Comment on above: PATIENT NOT FASTINGP ERFORMED BY: HALEIGH [place]6370 [facility] [id number] METABOLIC PANEL, BASIC ([id number])Ordered By: Database Marketing Manager on 06-25-2022 Calcium [Mass/Vol] 10.1 mg/dL Normal 8.7-10.3 [facility]; [facility] Work Phone: Comment on above: PATIENT NOT FASTINGP ERFORMED BY: HALEIGH [place]6370 [facility] Hospitalin [place] [id number] Chloride [Moles/Vol] 101 mmol/L Normal 96-106 [facility]; [facility] Work Phone: Comment on above: PATIENT NOT FASTINGP ERFORMED BY: CB [facility] [id number] Holguin RoadDublin [place] [id number] CO2 [Moles/Vol] 23 mmol/L Normal 20-29 [facility]ale [facility]; [facility] Work Phone: Comment on above: PATIENT NOT FASTINGP ERFORMED BY: CB [facility] Tzciwu2099 Holguin RoadDublin [place] [id number] Creatinine [Mass/Vol] 1.09 mg/dL Abnormal 0.57-1.00 [facility] prehensive Internal Medicine; [facility] Work Phone: Comment on above: PATIENT NOT FASTINGP ERFORMED BY: CB [facility] [id number] Holguin RoadDublin [place] [id number] GFR/1.73 sq M.predicted among non-blacks MDRD (S/P/Bld) [Vol rate/Area] 50 mL/min/{1.73_m2} Abnormal Comprehens[facility] e [facility]; [facility] Work Phone: Comment on above: PATIENT NOT FASTINGP ERFORMED BY: CB [facility] Bewcep4008 Holgu[address] RoadDublin [place] [id number] Glucose [Mass/Vol] 118 mg/dL Abnormal 70-99 [facility] Internal [facility]; [facility] Work Phone: Comment on above: PATIENT NOT FASTINGP ERFORMED BY: CB [facility] Neragw3866 Holguin RoadDublin [place] [id number] Potassium [Moles/Vol] 4.7 mmol/L Normal 3.5-5.2 [facility] prehensive Internal Medicine; [facility] Work Phone: Comment on above: PATIENT NOT FASTINGP ERFORMED BY: CB [facility] [id number] [address] RoadDublin [place] [id number] Sodium [Moles/Vol] 138 mmol/L Normal 134-144 [facility]; [facility] Work Phone: Comment on above: PATIENT NOT FASTINGP ERFORMED BY: CB [facility] Yvdqdn6621 [address] RoadDublin [place] [id number] Urea nitrogen [Mass/Vol] 23 mg/dL Normal 8-27 [facility]; [facility] Work Phone: Comment on above: PATIENT NOT FASTINGP ERFORMED BY: Posit ScienceCorewell Health [facility]6370 [facility] [id number] Urea nitrogen/Creatinine [Mass ratio] 21 mg/mg Normal 12- [facility]; [facility] Work Phone: Comment on above: PATIENT NOT FASTINGP ERFORMED BY: LabcoEast Mountain HospitalGlafad0161 [facility] [id number] Absolute lymphocyte countOrd ered By: Dr. Lal on 06-17-2022 Lymphocytes Auto (Unsp spec) [#/Vol] 3.40 10*3/uL 0.83-4.51 [facility] Basophil percentageOrdered B y: Dr. Lal on 06-17-2022 Basophil percentage 109 mg/dL 74-106 [facility] Basophil percentage 136 mmol/L 136-145 [facility] Basophil percentage 4.4 mmol/L 3.5-5.1 [facility] Basophil percentage 104 mmol/L 98-107 [facility] Basophils (Bld) [#/Vol] 8.7 10*3/uL 4.4-11.0 [facility] Basophils (Bld) [#/Vol] 4.1 10*3/uL 2.0-7.7 [facility] Basophils/100 WBC (Bld) 0.6 % 0-1 [facility] Basophils/100 WBC (Bld) 47.5 % 47-70 [facility] Basophils/100 WBC (Bld) 2.5 % 0-5 [facility] Basophil percentageon 2021 Chloride [Moles/Vol] 104 mmol/L 98-107 [facility] Work Phone: Eosinophils/100 WBC (Bld) 2.5 % 0-5 [facility] Work Phone: Glucose [Mass/Vol] 109 mg/dL 74-106 [facility] Work Phone: Comment on above: Fasting Glucose resu lt from 100 to 125 mg/dL suggests IMPAIRED HOMEOSTASIS per A.D.A. criteria. Neutrophils (Bld) [#/Vol] 4.1 10*3/uL 2.0-7.7 [facility] Work Phone: Neutrophils/100 WBC (Bld) 47.5 % 47-70 [facility] Work Phone: Potassium [Moles/Vol] 4.4 mmol/L 3.5-5.1 [facility] Work Phone: Sodium [Moles/Vol] 136 mmol/L 136-145 [facility] Work Phone: WBC (Bld) [#/Vol] 8.7 10*3/uL 4.4-11.0 [facility] Work Phone: Blood erythrocytes count (nu mber/volume)Ordered By: Dr. Lal on 06-17-2022 RBC (Bld) [#/Vol] 3.83 10*6/uL 4.2-5.4 [facility] Blood hemoglobin measurement (mass/volume)Ordered By: Dr. Lal on 06-17-2022 Hemoglobin (Bld) [Mass/Vol] 11.4 g/dL 12.0-15.0 [facility] Blood lymphocytes/100 leukoc ytesOrdered By: Dr. Lal on 06-17-2022 Lymphocytes/100 WBC (Bld) 38.9 % 19-41 [facility] Blood monocytes/100 leukocyt esOrdered By: Dr. Lal on 06-17-2022 Monocytes/100 WBC (Bld) 10.2 % 0-10 [facility] Blood platelet mean volumeOr dered By: Dr. Lla on 06-17-2022 Platelet mean volume (Bld) [Entitic vol] 10.6 fL 6.2-12.0 [facility] Determination of erythrocyte mean corpuscular volume (MCV)Ordered By: Dr. Lal on 06-17-2022 MCV (RBC) [Entitic vol] 90.9 fL 81-99 [facility] Hematocrit Auto (Bld) [Volum e fraction]Ordered By: Dr. Lal on 06-17-2022 Hematocrit (Bld) [Volume fraction] 34.8 % 37-47 [facility] Laboratory - Chemistry and C hemistry - challengeon 06-17-2022 CO2 [Moles/Vol] 28.0 mmol/L 21.0-32.0 [facility] Work Phone: Urea nitrogen/Creatinine [Mass ratio] 20.9 mg/mg 10-20 [facility] Work Phone: Laboratory - Hematology and Cell countson 06-17-2022 Erythrocyte distribution width (RBC) [Entitic vol] 48.8 fL 35.1-43.9 [facility] Work Phone: Erythrocyte distribution width (RBC) [Ratio] 14.5 % 11.6-14.6 [facility] Work Phone: Immature granulocytes/100 WBC (Bld) 0.300 % 0.0-0.9 [facility] Work Phone: Comment on above: IG% - Immature Granu locytes (promyelocytes, myelocytes and metamyelocytes) > 1% indicates that a LEFT SHIFT is Present. MCH (RBC) [Entitic mass] 29.8 pg 27.0-32.0 [facility] Work Phone: Nucleated RBC/100 WBC (Bld) [Ratio] 0 % 0-5 [facility] Work Phone: MCHC Auto (RBC) [Mass/Vol]Or dered By: Dr. Lal on 06-17-2022 MCHC (RBC) [Mass/Vol] 32.8 g/dL 32-36 [facility] No Panel Informationon 06-17 Estimated GFR (MDRD) Amer 58 mL/min >60 [facility] Work Phone: Comment on above: GFR Calc Estimated GFR (MDRD) Non-Af Amer 48 mL/min >60 [facility] Work Phone: Comment on above: Non- GFR Calc No Panel InformationOrdered By: Dr. Lal on 06-17-2022 29.8 pg 27.0-32.0 [facility] 14.5 % 11.6-14.6 [facility] 48.8 fl 35.1-43.9 [facility] 0.300 % 0.0-0.9 [facility] 0 % 0-5 [facility] 48 mL/min >60 [facility] 58 mL/min >60 [facility] 20.9 RATIO 10-20 [facility] 28.0 mmol/L 21.0-32.0 [facility] Platelets bldOrdered By: Dr. Lal on 06-17-2022 Platelets (Bld) [#/Vol] 208 10*3/uL 150-450 [facility] Serum or plasma calcium brian urement (mass/volume)Ordered By: Dr. Lal on 06-17-2022 Calcium [Mass/Vol] 9.7 mg/dL 8.5-10.1 [facility] Serum or plasma creatinine m easurement (mass/volume)Ordered By: Dr. Lal on 06-17-2022 Creatinine [Mass/Vol] 1.15 mg/dL 0.55-1.02 [facility] Comment on above: The validity of the calculated GFR & GFRAA in patients over 70 years has not been determined. Clinical correlation is essential. Serum or plasma urea nitroge n measurement (mass/volume)Ordered By: Dr. Lal on 06-17-2022 Urea nitrogen [Mass/Vol] 24 mg/dL 7-18 [facility] Thin prep Papanicolaou smear with manual screeningOrdered By: Dr. Lal on 06-17-2022 Thin prep Papanicolaou smear with manual screening 4 5-15 [facility] Basophil percentageOrdered B y: Dr. Lal on 06-08-2022 Basophil percentage 114 mg/dL 74-106 [facility] Basophil percentage 6.9 g/dL 6.4-8.2 [facility] Basophil percentage 1.00 mg/dL 0.20-1.00 [facility] Basophil percentage 141 mmol/L 136-145 [facility] Basophil percentage 4.2 mmol/L 3.5-5.1 [facility] Basophil percentage 108 mmol/L 98-107 [facility] Basophils (Bld) [#/Vol] 7.5 10*3/uL 4.4-11.0 [facility] Basophil percentageon 11-19- 2022 Bilirubin [Mass/Vol] 1.00 mg/dL 0.20-1.00 [facility] Work Phone: Comment on above: For patients on eltr ombopag therapy, use of [place] TBIL is not recommended. Chloride [Moles/Vol] 108 mmol/L 98-107 [facility] Work Phone: Glucose [Mass/Vol] 114 mg/dL 74-106 [facility] Work Phone: Comment on above: Fasting Glucose resu lt from 100 to 125 mg/dL suggests IMPAIRED HOMEOSTASIS per A.D.A. criteria. Potassium [Moles/Vol] 4.2 mmol/L 3.5-5.1 [facility] Work Phone: Protein [Mass/Vol] 6.9 g/dL 6.4-8.2 [facility] Work Phone: Sodium [Moles/Vol] 141 mmol/L 136-145 [facility] Work Phone: WBC (Bld) [#/Vol] 7.5 10*3/uL 4.4-11.0 [facility] Work Phone: Blood erythrocytes count (nu mber/volume)Ordered By: Dr. Lal on 06-08-2022 RBC (Bld) [#/Vol] 3.81 10*6/uL 4.2-5.4 [facility] Blood hemoglobin measurement (mass/volume)Ordered By: Dr. Lal on 06-08-2022 Hemoglobin (Bld) [Mass/Vol] 11.1 g/dL 12.0-15.0 [facility] Blood platelet mean volumeOr dered By: Dr. Lal on 06-08-2022 Platelet mean volume (Bld) [Entitic vol] 11.1 fL 6.2-12.0 [facility] Determination of erythrocyte mean corpuscular volume (MCV)Ordered By: Dr. Lal on 06-08-2022 MCV (RBC) [Entitic vol] 90.6 fL 81-99 [facility] Hematocrit Auto (Bld) [Volum e fraction]Ordered By: Dr. Lal on 06-08-2022 Hematocrit (Bld) [Volume fraction] 34.5 % 37-47 [facility] Laboratory - Chemistry and C hemistry - challengeon 06-08-2022 ALP [Catalytic activity/Vol] 54 U/L 45-117 [facility] Work Phone: ALT [Catalytic activity/Vol] 18 U/L 13-56 [facility] Work Phone: CO2 [Moles/Vol] 29.0 mmol/L 21.0-32.0 [facility] Work Phone: Globulin (S) [Mass/Vol] 4.0 g/dL 2.2-4.2 [facility] Work Phone: Urea nitrogen/Creatinine [Mass ratio] 41.3 mg/mg 10-20 [facility] Work Phone: Laboratory - Hematology and Cell countson 06-08-2022 Erythrocyte distribution width (RBC) [Entitic vol] 47.8 fL 35.1-43.9 [facility] Work Phone: Erythrocyte distribution width (RBC) [Ratio] 14.4 % 11.6-14.6 [facility] Work Phone: MCH (RBC) [Entitic mass] 29.1 pg 27.0-32.0 [facility] Work Phone: MCHC Auto (RBC) [Mass/Vol]Or dered By: Dr. Lal on 06-08-2022 MCHC (RBC) [Mass/Vol] 32.2 g/dL 32-36 [facility] No Panel Informationon 06-08 Estimated GFR (MDRD) Amer 54 mL/min >60 [facility] Work Phone: Comment on above: GFR Calc Estimated GFR (MDRD) Non-Af Amer 45 mL/min >60 [facility] Work Phone: Comment on above: Non- GFR Calc No Panel InformationOrdered By: Dr. Lal on 06-08-2022 29.1 pg 27.0-32.0 [facility] 14.4 % 11.6-14.6 [facility] 47.8 fl 35.1-43.9 [facility] 45 mL/min >60 [facility] 54 mL/min >60 [facility] 41.3 RATIO 10-20 [facility] 4.0 g/dL 2.2-4.2 [facility] 54 U/L 45-117 [facility] 18 U/L 13-56 [facility] 29.0 mmol/L 21.0-32.0 [facility] Platelets bldOrdered By: Dr. Lal on 06-08-2022 Platelets (Bld) [#/Vol] 230 10*3/uL 150-450 [facility] Serum or plasma albumin brian urement (mass/volume)Ordered By: Dr. Lal on 06-08-2022 Albumin [Mass/Vol] 2.9 g/dL 3.2-5.0 [facility] Serum or plasma albumin/glob ulin mass ratioOrdered By: Dr. Lal on 06-08-2022 Albumin/Globulin [Mass ratio] 0.7 {ratio} 0.9-2.4 [facility] Serum or plasma calcium brian urement (mass/volume)Ordered By: Dr. Lal on 06-08-2022 Calcium [Mass/Vol] 9.9 mg/dL 8.5-10.1 [facility] Serum or plasma creatinine m easurement (mass/volume)Ordered By: Dr. Lal on 06-08-2022 Creatinine [Mass/Vol] 1.21 mg/dL 0.55-1.02 [facility] Comment on above: The validity of the calculated GFR & GFRAA in patients over 70 years has not been determined. Clinical correlation is essential. Serum or plasma urea nitroge n measurement (mass/volume)Ordered By: Dr. Lal on 06-08-2022 Urea nitrogen [Mass/Vol] 50 mg/dL 7-18 [facility] Thin prep Papanicolaou smear with manual screeningOrdered By: Dr. Lal on 06-08-2022 Thin prep Papanicolaou smear with manual screening 13 U/L 15-37 [facility] Thin prep Papanicolaou smear with manual screening 4 5-15 [facility] Basophil percentageOrdered B y: Dr. Hudson on 06-06-2022 Basophil percentage 3.6 mg/dL 2.5-4.9 [facility] Basophil percentage 108 mg/dL 74-106 [facility] Basophil percentage 136 mmol/L 136-145 [facility] Basophil percentage 5.2 mmol/L 3.5-5.1 [facility] Basophil percentage 104 mmol/L 98-107 [facility] Basophil percentageon 2021 Chloride [Moles/Vol] 104 mmol/L 98-107 [facility] Work Phone: Glucose [Mass/Vol] 108 mg/dL 74-106 [facility] Work Phone: Comment on above: Fasting Glucose resu lt from 100 to 125 mg/dL suggests IMPAIRED HOMEOSTASIS per A.D.A. criteria. Potassium [Moles/Vol] 5.2 mmol/L 3.5-5.1 [facility] Work Phone: Sodium [Moles/Vol] 136 mmol/L 136-145 [facility] Work Phone: Glucose Glucometer (BldC) [M ass/Vol]Ordered By: Dr. Arevalo on 06-06-2022 Glucose [Mass/Vol] 101 mg/dL 74-106 [facility] Comment on above: MANAGEMENT OF PATIEN T CARE PER NURSING PROTOCOL Laboratory - Chemistry and C hemistry - challengeon 06-06-2022 CO2 [Moles/Vol] 27.0 mmol/L 21.0-32.0 [facility] Work Phone: Urea nitrogen/Creatinine [Mass ratio] 58.7 mg/mg 10-20 [facility] Work Phone: No Panel Informationon 06-06 Estimated Creatinine Clearance Calc 15.44 ml/min [facility] Work Phone: Estimated GFR (MDRD) Amer 30 mL/min >60 [facility] Work Phone: Comment on above: GFR Calc Estimated GFR (MDRD) Non-Af Amer 25 mL/min >60 [facility] Work Phone: Comment on above: Non- GFR Calc No Panel InformationOrdered By: Dr. Hudson on 06-06-2022 25 mL/min >60 [facility] 30 mL/min >60 [facility] 15.44 ml/min [facility] 58.7 RATIO 10-20 [facility] 27.0 mmol/L 21.0-32.0 [facility] Serum or plasma albumin brian urement (mass/volume)Ordered By: Dr. Hudson on 06-06-2022 Albumin [Mass/Vol] 2.8 g/dL 3.2-5.0 [facility] Serum or plasma calcium brian urement (mass/volume)Ordered By: Dr. Hudson on 06-06-2022 Calcium [Mass/Vol] 9.6 mg/dL 8.5-10.1 [facility] Serum or plasma creatinine m easurement (mass/volume)Ordered By: Dr. Hudson on 06-06-2022 Creatinine [Mass/Vol] 2.01 mg/dL 0.55-1.02 [facility] Comment on above: The validity of the calculated GFR & GFRAA in patients over 70 years has not been determined. Clinical correlation is essential. Serum or plasma urea nitroge n measurement (mass/volume)Ordered By: Dr. Hudson on 06-06-2022 Urea nitrogen [Mass/Vol] 118 mg/dL - [facility] Comment on above: Critical Result(s) C alled at: 06:43:18 06/06/2022 by: MARIAN SMITH Results read back by same. Absolute lymphocyte countOrd ered By: Dr. Hudson on 06-05-2022 Lymphocytes Auto (Unsp spec) [#/Vol] 2.80 10*3/uL 0.83-4.51 [facility] Basophil percentageOrdered B y: Dr. Hudson on 06-05-2022 Basophils (Bld) [#/Vol] 8.2 10*3/uL 4.4-11.0 [facility] Basophils (Bld) [#/Vol] 4.0 10*3/uL 2.0-7.7 [facility] Basophils/100 WBC (Bld) 0.6 % 0-1 [facility] Basophils/100 WBC (Bld) 49.1 % 47-70 [facility] Basophils/100 WBC (Bld) 3.7 % 0-5 [facility] Basophil percentageon 2021 Eosinophils/100 WBC (Bld) 3.7 % 0-5 [facility] Work Phone: Neutrophils (Bld) [#/Vol] 4.0 10*3/uL 2.0-7.7 [facility] Work Phone: Neutrophils/100 WBC (Bld) 49.1 % 47-70 [facility] Work Phone: WBC (Bld) [#/Vol] 8.2 10*3/uL 4.4-11.0 [facility] Work Phone: Blood erythrocytes count (nu mber/volume)Ordered By: Dr. Hudson on 06-05-2022 RBC (Bld) [#/Vol] 3.67 10*6/uL 4.2-5.4 [facility] Blood hemoglobin measurement (mass/volume)Ordered By: Dr. Hudson on 06-05-2022 Hemoglobin (Bld) [Mass/Vol] 11.0 g/dL 12.0-15.0 [facility] Blood lymphocytes/100 leukoc ytesOrdered By: Dr. Hudson on 06-05-2022 Lymphocytes/100 WBC (Bld) 34.2 % 19-41 [facility] Blood monocytes/100 leukocyt esOrdered By: Dr[address] Hudson on 06-05-2022 Monocytes/100 WBC (Bld) 12.2 % 0-10 [facility] Blood platelet mean volumeOr dered By: Dr. Hudson on 06-05-2022 Platelet mean volume (Bld) [Entitic vol] 10.5 fL 6.2-12.0 [facility] Determination of erythrocyte mean corpuscular volume (MCV)Ordered By: Dr. Hudson on 06-05-2022 MCV (RBC) [Entitic vol] 90.5 fL 81-99 [facility] Hematocrit Auto (Bld) [Volum e fraction]Ordered By: Dr. Hudson on 06-05-2022 Hematocrit (Bld) [Volume fraction] 33.2 % 37-47 [facility] Laboratory - Chemistry and C hemistry - challengeon 06-05-2022 Sodium (U) [Moles/Vol] 29 mmol/L Not Establ. [facility] Work Phone: Laboratory - Hematology and Cell countson 06-05-2022 Erythrocyte distribution width (RBC) [Entitic vol] 48.6 fL 35.1-43.9 [facility] Work Phone: Erythrocyte distribution width (RBC) [Ratio] 14.6 % 11.6-14.6 [facility] Work Phone: Immature granulocytes/100 WBC (Bld) 0.200 % 0.0-0.9 [facility] Work Phone: Comment on above: IG% - Immature Granu locytes (promyelocytes, myelocytes and metamyelocytes) > 1% indicates that a LEFT SHIFT is Present. MCH (RBC) [Entitic mass] 30.0 pg 27.0-32.0 [facility] Work Phone: Nucleated RBC/100 WBC (Bld) [Ratio] 0 % 0-5 [facility] Work Phone: MCHC Auto (RBC) [Mass/Vol]Or dered By: Dr. Hudson on 06-05-2022 MCHC (RBC) [Mass/Vol] 33.1 g/dL 32-36 [facility] No Panel Informationon 06-05 Urine Urea Nitrogen 951 mg/dL NO RANGE EST. [facility] Work Phone: No Panel InformationOrdered By: Dr. Hudson on 06-05-2022 29 mmol/L Not Establ. [facility] 951 mg/dL NO RANGE EST. [facility] 30.0 pg 27.0-32.0 [facility] 14.6 % 11.6-14.6 [facility] 48.6 fl 35.1-43.9 [facility] 0.200 % 0.0-0.9 [facility] 0 % 0-5 [facility] Platelets bldOrdered By: Dr. Hudson on 06-05-2022 Platelets (Bld) [#/Vol] 231 10*3/uL 150-450 [facility] Urine creatinine measurement (mass/volume)Ordered By: Dr. Hudson on 06-05-2022 Creatinine (U) [Mass/Vol] 51.60 mg/dL NO RANGE EST. [facility] Thin prep Papanicolaou smear with manual screeningOrdered By: Dr. Arevalo on 05-31-2022 Thin prep Papanicolaou smear with manual screening 5 5-15 [facility] Basophil percentageOrdered B y: Dr. Martinez on 05-23-2022 Basophil percentage 120 mg/dL 74-106 [facility] Basophil percentage 135 mmol/L 136-145 [facility] Basophil percentage 5.0 mmol/L 3.5-5.1 [facility] Basophil percentage 101 mmol/L 98-107 [facility] Basophil percentageon 2021 Chloride [Moles/Vol] 101 mmol/L 98-107 [facility] Work Phone: Glucose [Mass/Vol] 120 mg/dL 74-106 [facility] Work Phone: Comment on above: Fasting Glucose resu lt from 100 to 125 mg/dL suggests IMPAIRED HOMEOSTASIS per A.D.A. criteria. Potassium [Moles/Vol] 5.0 mmol/L 3.5-5.1 [facility] Work Phone: Comment on above: Slight Hemolysis, Re sult may be falsely increased. Sodium [Moles/Vol] 135 mmol/L 136-145 [facility] Work Phone: COVID-19 virus antigen assay Ordered By: Dr. Martinez on 05-23-2022 SARS-CoV-2 (COVID-19) Ag IA.rapid Ql (Resp) [facility] Glucose Glucometer (BldC) [M ass/Vol]Ordered By: Dr. Martinez on 05-23-2022 Glucose [Mass/Vol] 140 mg/dL 74-106 [facility] Comment on above: MANAGEMENT OF PATIEN T CARE PER NURSING PROTOCOL Glucose Glucometer (BldC) [M ass/Vol]on 05-23-2022 Glucose [Mass/Vol] 124 mg/dL 74-106 [facility] Work Phone: Comment on above: MANAGEMENT OF PATIEN T CARE PER NURSING PROTOCOL Laboratory - Chemistry and C hemistry - challengeon 05-23-2022 CO2 [Moles/Vol] 27.0 mmol/L 21.0-32.0 [facility] Work Phone: Urea nitrogen/Creatinine [Mass ratio] 41.0 mg/mg 10-20 [facility] Work Phone: No Panel Informationon 05-23 Estimated Creatinine Clearance Calc 16.51 ml/min [facility] Work Phone: Estimated GFR (MDRD) Amer 33 mL/min >60 [facility] Work Phone: Comment on above: GFR Calc Estimated GFR (MDRD) Non-Af Amer 27 mL/min >60 [facility] Work Phone: Comment on above: Non- GFR Calc No Panel InformationOrdered By: Dr. Martinez on 05-23-2022 27 mL/min >60 [facility] 33 mL/min >60 [facility] 16.51 ml/min [facility] 41.0 RATIO -20 [facility] 27.0 mmol/L 21.0-32.0 [facility] Serum or plasma calcium brian urement (mass/volume)Ordered By: Dr. Martinez on 05-23-2022 Calcium [Mass/Vol] 10.1 mg/dL 8.5-10.1 [facility] Serum or plasma creatinine m easurement (mass/volume)Ordered By: Dr. Martinez on 05-23-2022 Creatinine [Mass/Vol] 1.88 mg/dL 0.55-1.02 [facility] Comment on above: The validity of the calculated GFR & GFRAA in patients over 70 years has not been determined. Clinical correlation is essential. Serum or plasma urea nitroge n measurement (mass/volume)Ordered By: Dr. Martinze on 05-23-2022 Urea nitrogen [Mass/Vol] 77 mg/dL 7-18 [facility] Thin prep Papanicolaou smear with manual screeningOrdered By: Dr. Martinez on 05-23-2022 Thin prep Papanicolaou smear with manual screening 7 5-15 [facility] Absolute lymphocyte countOrd ered By: Dr. Martinez on 05-22-2022 Lymphocytes Auto (Unsp spec) [#/Vol] 2.89 10*3/uL 0.83-4.51 [facility] Basophil percentageOrdered B y: Dr. Martinez on 05-22-2022 Basophils (Bld) [#/Vol] 8.7 10*3/uL 4.4-11.0 [facility] Basophils (Bld) [#/Vol] 4.2 10*3/uL 2.0-7.7 [facility] Basophils/100 WBC (Bld) 1.2 % 0-1 [facility] Basophils/100 WBC (Bld) 48.2 % 47-70 [facility] Basophils/100 WBC (Bld) 3.9 % 0-5 [facility] Basophil percentageon 2021 Eosinophils/100 WBC (Bld) 3.9 % 0-5 [facility] Work Phone: Neutrophils (Bld) [#/Vol] 4.2 10*3/uL 2.0-7.7 [facility] Work Phone: Neutrophils/100 WBC (Bld) 48.2 % 47-70 [facility] Work Phone: WBC (Bld) [#/Vol] 8.7 10*3/uL 4.4-11.0 [facility] Work Phone: Blood erythrocytes count (nu mber/volume)Ordered By: Dr. Martinez on 05-22-2022 RBC (Bld) [#/Vol] 3.58 10*6/uL 4.2-5.4 [facility] Blood hemoglobin measurement (mass/volume)Ordered By: Dr. Martinez on 05-22-2022 Hemoglobin (Bld) [Mass/Vol] 10.9 g/dL 12.0-15.0 [facility] Blood lymphocytes/100 leukoc ytesOrdered By: Dr. Martinez on 05-22-2022 Lymphocytes/100 WBC (Bld) 33.3 % 19-41 [facility] Blood monocytes/100 leukocyt esOrdered By: Dr. Martinez on 05-22-2022 Monocytes/100 WBC (Bld) 12.2 % 0-10 [facility] Blood platelet mean volumeOr dered By: Dr. Martinez on 05-22-2022 Platelet mean volume (Bld) [Entitic vol] 9.9 fL 6.2-12.0 [facility] Determination of erythrocyte mean corpuscular volume (MCV)Ordered By: Dr. Martinez on 05-22-2022 MCV (RBC) [Entitic vol] 89.7 fL 81-99 [facility] Hematocrit Auto (Bld) [Volum e fraction]Ordered By: Dr. Martinez on 05-22-2022 Hematocrit (Bld) [Volume fraction] 32.1 % 37-47 [facility] Laboratory - Hematology and Cell countson 05-22-2022 Erythrocyte distribution width (RBC) [Entitic vol] 45.3 fL 35.1-43.9 [facility] Work Phone: Erythrocyte distribution width (RBC) [Ratio] 13.9 % 11.6-14.6 [facility] Work Phone: Immature granulocytes/100 WBC (Bld) 1.200 % 0.0-0.9 [facility] Work Phone: Comment on above: IG% - Immature Granu locytes (promyelocytes, myelocytes and metamyelocytes) > 1% indicates that a LEFT SHIFT is Present. MCH (RBC) [Entitic mass] 30.4 pg 27.0-32.0 [facility] Work Phone: Nucleated RBC/100 WBC (Bld) [Ratio] 0 % 0-5 [facility] Work Phone: MCHC Auto (RBC) [Mass/Vol]Or dered By: Dr. Martinez on 05-22-2022 MCHC (RBC) [Mass/Vol] 34.0 g/dL 32-36 [facility] No Panel InformationOrdered By: Dr. Martinez on 05-22-2022 30.4 pg 27.0-32.0 [facility] 13.9 % 11.6-14.6 [facility] 45.3 fl 35.1-43.9 [facility] 1.200 % 0.0-0.9 [facility] 0 % 0-5 [facility] Platelets bldOrdered By: Dr. Martinez on 05-22-2022 Platelets (Bld) [#/Vol] 294 10*3/uL 150-450 [facility] Aldosterone/renin activity r atioOrdered By: Dr. Kwok on 05-21-2022 Aldosterone/Renin (P) [Ratio] 0.3 0.0-30.0 [facility] Comment on above: Units: ng/dL per ng/ mL/hrPerformed at: [facility] Lab[address] [id number] Director: Jose Castillo MD, Phone: [phone] Basophil percentageOrdered B y: Dr. Martinez on 05-21-2022 Basophil percentage 4.2 mg/dL 2.5-4.9 [facility] Laboratory - Chemistry and C hemistry - challengeon 05-21-2022 Magnesium [Mass/Vol] 1.8 mg/dL 1.6-2.6 [facility] Work Phone: No Panel InformationOrdered By: Dr. Martinez on 05-21-2022 1.8 mg/dL 1.6-2.6 [facility] Plasma renin measurement (en zymatic activity/volume)Ordered By: Dr. Kwok on 05-21-2022 Renin (P) [Catalytic activity/Vol] 4.801 ng/mL/hr 0.167-5.38 0 [facility] Serum or plasma cortisol alecia surement (mass/volume)Ordered By: Dr. Kwok on 05-21-2022 Cortisol [Mass/Vol] 12.00 ug/dL 3.44-22.45 [facility] Comment on above: Adult (AM) 5.27 - 22 .45 ug/dL Adult (PM) 3.44 - 16.76 ug/dLPlease note revised CORTISOL reference range effective 2019. Thin prep Papanicolaou smear with manual screeningOrdered By: Dr. Kwok on 05-21-2022 Thin prep Papanicolaou smear with manual screening 1.4 ng/dL 0.0-30.0 [facility] Anaerobic cultureOrdered By: Dr. Michel on 05-20-2022 Bacteria identified Anaer cx Nom (Unsp spec) No growth in 5 days. [facility] Basophil percentageOrdered B y: Dr. Booth on 05-20-2022 Basophil percentage 169 mg/dL <200 [facility] Basophil percentage 137 mg/dL <199 [facility] Basophil percentageon 2021 Cholesterol [Mass/Vol] 169 mg/dL <200 [facility] Work Phone: Comment on above: <200 mg/dL Desirable 200-240 mg/dL Borderline >240 mg/dL High Risk Triglyceride [Mass/Vol] 137 mg/dL <199 [facility] Work Phone: Comment on above: The drugs N-Acetylcy steine and Metamizole may falsely depress this assay.Serum Triglycerides Reference Interval Normal <150 mg/dL Borderline high 150 - 199 mg/dL High 200 - 499 mg/dL Very High > or = 500 mg/dL No Panel Informationon 05-20 Troponin I High Sensitivity 83 pg/mL 3.0-54.0 [facility] Work Phone: Comment on above: Please Note: New Sue t Units and Gender Specific Reference Ranges. For more information see Policy Stat Procedure [place] High Sensitivity Troponin (TNIH) and attachments. No Panel InformationOrdered By: Dr. Booth on 05-20-2022 83 pg/mL 3.0-54.0 [facility] No Panel InformationOrdered By: Dr. Burnham on 05-20-2022 No growth in 5 days. [facility] Serum or plasma cholesterol in HDL measurement (mass/volume)Ordered By: Dr. Booth on 05-20-2022 Cholesterol in HDL [Mass/Vol] 40 mg/dL >40 [facility] Comment on above: The drugs N-Acetylcy steine and Metamizole may falsely depress this assay. Reference Range HDL <40 mg/dL Low HDL Cholesterol HDL >or= 60 mg/dL High HDL Cholesterol Serum or plasma cholesterol in VLDL measurement (mass/volume)Ordered By: Dr. Booth on 05-20-2022 Cholesterol in VLDL [Mass/Vol] 27 mg/dL 5-40 [facility] Serum or plasma low density lipoprotein (LDL) cholesterol measurement (mass/volume)Ordered By: Dr. Booth on 05-20-2022 Cholesterol in LDL [Mass/Vol] 102 mg/dL 0-130 [facility] Absolute lymphocyte counton 05-19-2022 Lymphocytes Auto (Unsp spec) [#/Vol] 1.95 10*3/uL 0.83-4.51 [facility] Work Phone: Anaerobic cultureOrdered By: Dr. Michel on 05-19-2022 Bacteria identified Anaer cx Nom (Unsp spec) No anaerobic bacteria isolated. [facility] Basophil percentageon 2021 Basophils/100 WBC (Bld) 1.0 % 0-1 [facility] Work Phone: Chloride [Moles/Vol] 104 mmol/L 98-107 [facility] Work Phone: Eosinophils/100 WBC (Bld) 3.5 % 0-5 [facility] Work Phone: Glucose [Mass/Vol] 116 mg/dL 74-106 [facility] Work Phone: Comment on above: Fasting Glucose resu lt from 100 to 125 mg/dL suggests IMPAIRED HOMEOSTASIS per A.D.A. criteria. Neutrophils (Bld) [#/Vol] 5.6 10*3/uL 2.0-7.7 [facility] Work Phone: Neutrophils/100 WBC (Bld) 63.2 % 47-70 [facility] Work Phone: Potassium [Moles/Vol] 4.5 mmol/L 3.5-5.1 [facility] Work Phone: Sodium [Moles/Vol] 135 mmol/L 136-145 [facility] Work Phone: WBC (Bld) [#/Vol] 8.9 10*3/uL 4.4-11.0 [facility]: Blood erythrocytes count (nu mber/volume)on 05-19-2022 RBC (Bld) [#/Vol] 4.03 10*6/uL 4.2-5.4 [facility]: Blood hemoglobin measurement (mass/volume)on 05-19-2022 Hemoglobin (Bld) [Mass/Vol] 12.2 g/dL 12.0-15.0 [facility] Work Phone: Blood lymphocytes/100 leukoc yteson 05-19-2022 Lymphocytes/100 WBC (Bld) 21.9 % 19-41 [facility] Work Phone: Blood monocytes/100 leukocyt eson 05-19-2022 Monocytes/100 WBC (Bld) 8.9 % 0-10 [facility] Work Phone: Blood platelet mean volumeon 05-19-2022 Platelet mean volume (Bld) [Entitic vol] 9.5 fL 6.2-12.0 [facility] Work Phone: Determination of erythrocyte mean corpuscular volume (MCV)on 05-19-2022 MCV (RBC) [Entitic vol] 87.8 fL 81-99 [facility] Work Phone: Hematocrit Auto (Bld) [Volum e fraction]on 05-19-2022 Hematocrit (Bld) [Volume fraction] 35.4 % 37-47 [facility] Work Phone: Laboratory - Chemistry and C hemistry - challengeon 05-19-2022 CO2 [Moles/Vol] 23.0 mmol/L 21.0-32.0 [facility] Work Phone: Natriuretic peptide B (Bld) [Mass/Vol] 296.1 pg/mL 0-100 [facility] Work Phone: Urea nitrogen/Creatinine [Mass ratio] 21.0 mg/mg 10-20 [facility] Work Phone: Laboratory - Hematology and Cell countson 05-19-2022 Erythrocyte distribution width (RBC) [Entitic vol] 43.4 fL 35.1-43.9 [facility] Work Phone: Erythrocyte distribution width (RBC) [Ratio] 13.4 % 11.6-14.6 [facility] Work Phone: Immature granulocytes/100 WBC (Bld) 1.500 % 0.0-0.9 [facility] Work Phone: Comment on above: IG% - Immature Granu locytes (promyelocytes, myelocytes and metamyelocytes) > 1% indicates that a LEFT SHIFT is Present. MCH (RBC) [Entitic mass] 30.3 pg 27.0-32.0 [facility] Work Phone: Nucleated RBC/100 WBC (Bld) [Ratio] 0 % 0-5 [facility] Work Phone: MCHC Auto (RBC) [Mass/Vol]on 05-19-2022 MCHC (RBC) [Mass/Vol] 34.5 g/dL 32-36 [facility] Work Phone: No Panel Informationon 05-19 Estimated Creatinine Clearance Calc 26.08 ml/min [facility] Work Phone: Estimated GFR (MDRD) Amer 55 mL/min >60 [facility] Work Phone: Comment on above: GFR Calc Estimated GFR (MDRD) Non-Af Amer 46 mL/min >60 [facility] Work Phone: Comment on above: Non- GFR Calc Troponin I High Sensitivity 111 pg/mL 3.0-54.0 [facility] Work Phone: Comment on above: Please Note: New Sue t Units and Gender Specific Reference Ranges. For more information see Policy Stat Procedure [place] High Sensitivity Troponin (TNIH) and attachments. No Panel InformationOrdered By: Dr. Mariscal on 05-19-2022 296.1 pg/mL 0-100 [facility] Platelets bldon 05-19-2022 Platelets (Bld) [#/Vol] 326 10*3/uL 150-450 [facility] Work Phone: Serum or plasma calcium brian urement (mass/volume)on 05-19-2022 Calcium [Mass/Vol] 10.3 mg/dL 8.5-10.1 [facility] Work Phone: Serum or plasma creatinine m easurement (mass/volume)on 05-19-2022 Creatinine [Mass/Vol] 1.19 mg/dL 0.55-1.02 [facility] Work Phone: Comment on above: The validity of the calculated GFR & GFRAA in patients over 70 years has not been determined. Clinical correlation is essential. Serum or plasma urea nitroge n measurement (mass/volume)on 05-19-2022 Urea nitrogen [Mass/Vol] 25 mg/dL 7-18 [facility] Work Phone: Thin prep Papanicolaou smear with manual screeningon 05-19-2022 Thin prep Papanicolaou smear with manual screening 8 5-15 [facility] Work Phone: Absolute lymphocyte countOrd ered By: Dr. Martinez on 05-18-2022 Lymphocytes Auto (Unsp spec) [#/Vol] 1.52 10*3/uL 0.83-4.51 [facility] Basophil percentageOrdered B y: Dr. Martinez on 05-18-2022 Basophil percentage 128 mg/dL 74-106 [facility] Basophil percentage 137 mmol/L 136-145 [facility] Basophil percentage 4.5 mmol/L 3.5-5.1 [facility] Basophil percentage 107 mmol/L 98-107 [facility] Basophils (Bld) [#/Vol] 7.2 10*3/uL 4.4-11.0 [facility] Basophils (Bld) [#/Vol] 4.7 10*3/uL 2.0-7.7 [facility] Basophils/100 WBC (Bld) 0.8 % 0-1 [facility] Basophils/100 WBC (Bld) 64.7 % 47-70 [facility] Basophils/100 WBC (Bld) 4.1 % 0-5 [facility] Basophil percentageon 2021 Chloride [Moles/Vol] 107 mmol/L 98-107 [facility] Work Phone: Eosinophils/100 WBC (Bld) 4.1 % 0-5 [facility] Work Phone: Glucose [Mass/Vol] 128 mg/dL 74-106 [facility] Work Phone: Comment on above: Fasting Glucose resu lt greater than or equal to 126 mg/dL suggests DIABETES MELLITUS per A.D.A. criteria. Neutrophils (Bld) [#/Vol] 4.7 10*3/uL 2.0-7.7 [facility] Work Phone: Neutrophils/100 WBC (Bld) 64.7 % 47-70 [facility] Work Phone: Potassium [Moles/Vol] 4.5 mmol/L 3.5-5.1 [facility] Work Phone: Sodium [Moles/Vol] 137 mmol/L 136-145 [facility] Work Phone: WBC (Bld) [#/Vol] 7.2 10*3/uL 4.4-11.0 [facility] Work Phone: Blood erythrocytes count (nu mber/volume)Ordered By: Dr. Martinez on 05-18-2022 RBC (Bld) [#/Vol] 3.59 10*6/uL 4.2-5.4 [facility] Blood hemoglobin measurement (mass/volume)Ordered By: Dr. Martinez on 05-18-2022 Hemoglobin (Bld) [Mass/Vol] 10.8 g/dL 12.0-15.0 [facility] Blood lymphocytes/100 leukoc ytesOrdered By: Dr. Martinez on 05-18-2022 Lymphocytes/100 WBC (Bld) 21.0 % 19-41 [facility] Blood monocytes/100 leukocyt esOrdered By: Dr. Martinez on 05-18-2022 Monocytes/100 WBC (Bld) 9.0 % 0-10 [facility] Blood platelet mean volumeOr dered By: Dr. Martinez on 05-18-2022 Platelet mean volume (Bld) [Entitic vol] 10.0 fL 6.2-12.0 [facility] Determination of erythrocyte mean corpuscular volume (MCV)Ordered By: Dr. Martinez on 05-18-2022 MCV (RBC) [Entitic vol] 90.8 fL 81-99 [facility] Glucose Glucometer (BldC) [M ass/Vol]Ordered By: Dr. Martinez on 05-18-2022 Glucose [Mass/Vol] 193 mg/dL 74-106 [facility] Comment on above: MANAGEMENT OF PATIEN T CARE PER NURSING PROTOCOL Hematocrit Auto (Bld) [Volum e fraction]Ordered By: Dr. Martinez on 05-18-2022 Hematocrit (Bld) [Volume fraction] 32.6 % 37-47 [facility] Laboratory - Chemistry and C hemistry - challengeon 05-18-2022 CO2 [Moles/Vol] 22.0 mmol/L 21.0-32.0 [facility] Work Phone: Urea nitrogen/Creatinine [Mass ratio] 23.5 mg/mg 10-20 [facility] Work Phone: Laboratory - Hematology and Cell countson 05-18-2022 Erythrocyte distribution width (RBC) [Entitic vol] 46.5 fL 35.1-43.9 [facility] Work Phone: Erythrocyte distribution width (RBC) [Ratio] 14.0 % 11.6-14.6 [facility] Work Phone: Immature granulocytes/100 WBC (Bld) 0.400 % 0.0-0.9 [facility] Work Phone: Comment on above: IG% - Immature Granu locytes (promyelocytes, myelocytes and metamyelocytes) > 1% indicates that a LEFT SHIFT is Present. MCH (RBC) [Entitic mass] 30.1 pg 27.0-32.0 [facility] Work Phone: Nucleated RBC/100 WBC (Bld) [Ratio] 0 % 0-5 [facility] Work Phone: MCHC Auto (RBC) [Mass/Vol]Or dered By: Dr. Martinez on 05-18-2022 MCHC (RBC) [Mass/Vol] 33.1 g/dL 32-36 [facility] No Panel Informationon 05-18 Estimated Creatinine Clearance Calc 26.99 ml/min [facility] Work Phone: Estimated GFR (MDRD) Amer 58 mL/min >60 [facility] Work Phone: Comment on above: GFR Calc Estimated GFR (MDRD) Non-Af Amer 48 mL/min >60 [facility] Work Phone: Comment on above: Non- GFR Calc No Panel InformationOrdered By: Dr. Martinez on 05-18-2022 30.1 pg 27.0-32.0 [facility] 14.0 % 11.6-14.6 [facility] 46.5 fl 35.1-43.9 [facility] 0.400 % 0.0-0.9 [facility] 0 % 0-5 [facility] 48 mL/min >60 [facility] 58 mL/min >60 [facility] 26.99 ml/min [facility] 23.5 RATIO 10-20 [facility] 22.0 mmol/L 21.0-32.0 [facility] Platelets bldOrdered By: Dr. Martinez on 05-18-2022 Platelets (Bld) [#/Vol] 255 10*3/uL 150-450 [facility] Routine wound cultureOrdered By: Dr. Michel on 05-18-2022 Bacteria identified Cx Nom (Wound) No growth aerobically. [facility] Serum or plasma calcium brian urement (mass/volume)Ordered By: Dr. Martinez on 05-18-2022 Calcium [Mass/Vol] 9.4 mg/dL 8.5-10.1 [facility] Serum or plasma creatinine m easurement (mass/volume)Ordered By: Dr. Martinez on 05-18-2022 Creatinine [Mass/Vol] 1.15 mg/dL 0.55-1.02 [facility] Comment on above: The validity of the calculated GFR & GFRAA in patients over 70 years has not been determined. Clinical correlation is essential. Serum or plasma urea nitroge n measurement (mass/volume)Ordered By: Dr. Martinez on 05-18-2022 Urea nitrogen [Mass/Vol] 27 mg/dL 7-18 [facility] Thin prep Papanicolaou smear with manual screeningOrdered By: Dr. Martinez on 05-18-2022 Thin prep Papanicolaou smear with manual screening 8 5-15 [facility] Bacteria identified Cx Nom ( Wound)Ordered By: Dr. Michel on 05-17-2022 Routine wound culture Pseudomonas aeroginosa [facility] Base excessOrdered By: Dr. Jonn govea on 05-17-2022 Base excess Calc (BldV) [Moles/Vol] -1 mmol/L -2-2 [facility] Basophil percentageOrdered B y: Dr. Martinez on 05-17-2022 Basophil percentage 24.5 mmol/L 22-26 [facility] Basophils/100 WBC (Bld) 90 % 95-99 [facility] CO2 (BldA) [Partial pressure ]Ordered By: Dr. Martinez on 05-17-2022 CO2 (Bld) [Partial pressure] 42.8 mm[Hg] 35-45 [facility] No Panel Informationon 05-17 Blood Gas Sample Site L [facility] Work Phone: Blood Gas Specimen Type [facility] Work Phone: Blood Gas Total CO2 26 mmol/L [facility] Work Phone: Oxygen Delivery Device Room Air [facility] Work Phone: No Panel InformationOrdered By: Dr. Martinez on 05-17-2022 [facility] Room Air [facility] 26 mmol/L [facility] Oxygen (BldA) [Partial press ure]Ordered By: Dr. Martinez on 05-17-2022 Oxygen (Bld) [Partial pressure] 61 mmHG 75-100 [facility] pH measurementOrdered By: Dr Faustino Martinez on 05-17-2022 pH (Unsp spec) 7.37 [pH] 7.35-7.45 [facility] Bacteria identified Cx Nom ( U)Ordered By: Dr. Chacha on 05-16-2022 Culture, urine Mixed Gram Pos & Gra m Neg Org [facility] Basophil percentageOrdered B y: Dr. Luu on 05-16-2022 Basophil percentage 2.6 mg/dL 2.5-4.9 [facility] Basophil percentage 6.0 g/dL 6.4-8.2 [facility] Basophil percentage 1.30 mg/dL 0.20-1.00 [facility] Basophil percentageon 2021 Bilirubin [Mass/Vol] 1.30 mg/dL 0.20-1.00 [facility] Work Phone: Comment on above: For patients on eltr ombopag therapy, use of [place] TBIL is not recommended. Protein [Mass/Vol] 6.0 g/dL 6.4-8.2 [facility] Work Phone: Blood manual differential co mment interpretation (narrative result)Ordered By: Dr. Luu on 05-16-2022 Manual differential comment David (Bld) [Interp] SCANNED [facility] Blood platelet adequacy dete ction by light microscopyOrdered By: Dr. Luu on 05-16-2022 Platelets LM Ql (Bld) ADEQUATE ADEQ [facility] Laboratory - Chemistry and C hemistry - challengeon 05-16-2022 ALP [Catalytic activity/Vol] 61 U/L 45-117 [facility] Work Phone: ALT [Catalytic activity/Vol] 38 U/L 13-56 [facility] Work Phone: Globulin (S) [Mass/Vol] 3.7 g/dL 2.2-4.2 [facility] Work Phone: Magnesium [Mass/Vol] 1.6 mg/dL 1.6-2.6 [facility] Work Phone: No Panel Informationon 05-16 Thyroid Stimulating Hormone (TSH) 1.50 uIU/mL 0.358-3.74 [facility] Work Phone: No Panel InformationOrdered By: Dr. Luu on 05-16-2022 3.7 g/dL 2.2-4.2 [facility] 61 U/L 45-117 [facility] 38 U/L 13-56 [facility] 1.6 mg/dL 1.6-2.6 [facility] 1.50 uIU/mL 0.358-3.74 [facility] Serum or plasma albumin brian urement (mass/volume)Ordered By: Dr. Luu on 05-16-2022 Albumin [Mass/Vol] 2.3 g/dL 3.2-5.0 [facility] Serum or plasma albumin/glob ulin mass ratioOrdered By: Dr. Luu on 05-16-2022 Albumin/Globulin [Mass ratio] 0.6 {ratio} 0.9-2.4 [facility] Thin prep Papanicolaou smear with manual screeningOrdered By: Dr. Luu on 05-16-2022 Thin prep Papanicolaou smear with manual screening 19 U/L 15-37 [facility] Vancomycin troughOrdered By: Dr. Booth on 05-16-2022 Vancomycin trough [Mass/Vol] 15.9 ug/mL 5.0-15.0 [facility] Comment on above: VANCOMYCIN STANDARED DRUG THERAPY TROUGH LEVEL: 5.0 - 15.0 mg/L VANCOMYCIN HIGH INTENSITY THERAPY TROUGH LEVEL: 15.0 - 20.0 mg/L High Intensity therapy recommended for serious lifethreatening infections include:- Hqxpcmgdsc-Mxnwjuftjlaj-Uohdlgfuz (Ventilator/Healtcare Associated)-Sepsis PLEASE CONTACT PHARMACY SERVICES (#[id number]) FOR INTERPRETATIONOF RESULTS. Whole blood hemoglobin A1c/t otal hemoglobin ratio (mass fraction)Ordered By: Dr. Luu on 05-16-2022 HbA1c (Bld) [Mass fraction] 6.1 % 3.8-5.6 [facility] Comment on above: Normal < 5.7 % Predi abetic 5.7 - 6.4 % Diabetic >or= 6.5 % Please note range changes. Gram stain for investigation of transfusion reactionOrdered By: Dr. Michel on 05-15-2022 Microscopic observation Gram stain Nom (Unsp spec) [facility] Basophil percentageOrdered B y: Dr. Burnham on 05-14-2022 Basophil percentage 5-10 SEEN /hpf 0-5 [facility] Basophil percentage 0.9 mmol/L 0.4-2.0 [facility] Basophil percentageon 2021 Chloride [Moles/Vol] 107 mmol/L 98-[address] [facility] [place] [place] Work Phone: Glucose [Mass/Vol] 98 mg/dL 74-106 [facility] Work Phone: Lactate [Moles/Vol] 0.9 mmol/L 0.4-2.0 [facility] Work Phone: Potassium [Moles/Vol] 4.7 mmol/L 3.5-5.1 [facility] Work [facility]: Sodium [Moles/Vol] 137 mmol/L 136-145 [facility] Work Phone: WBC (Bld) [#/Vol] 12.2 10*3/uL 4.4-11.0 [facility] Work Phone: Bilirubin Test strip Ql (U)O rdered By: Dr. Burnham on 05-14-2022 Bilirubin Ql (U) Negative Negative [facility] Blood erythrocytes count (nu mber/volume)on 05-14-2022 RBC (Bld) [#/Vol] 4.31 10*6/uL 4.2-5.4 [facility] Work Phone: Blood hemoglobin measurement (mass/volume)on 05-14-2022 Hemoglobin (Bld) [Mass/Vol] 12.6 g/dL 12.0-15.0 [facility] Work Phone: Blood platelet mean volumeon 05-14-2022 Platelet mean volume (Bld) [Entitic vol] 10.4 fL 6.2-12.0 [facility] Work Phone: Determination of erythrocyte mean corpuscular volume (MCV)on 05-14-2022 MCV (RBC) [Entitic vol] 88.6 fL 81-99 [facility] Work Phone: Hematocrit Auto (Bld) [Volum e fraction]on 05-14-2022 Hematocrit (Bld) [Volume fraction] 38.2 % 37-47 [facility] Work Phone: Influenza virus A and B and SARS-CoV-2 (COVID-19) Ag panel - Upper respiratory specimOrdered By: Dr. Burnham on 05-14-2022 SARS-CoV-2 (COVID-19) RNA KAYLIE+probe Ql (Resp) [facility] Ketones Test strip Ql (U)Ord ered By: Dr. Burnham on 05-14-2022 Ketones Ql (U) Negative Negative [facility] Laboratory - Chemistry and C hemistry - challengeon 05-14-2022 CO2 [Moles/Vol] 26.0 mmol/L 21.0-32.0 [facility] Work Phone: Urea nitrogen/Creatinine [Mass ratio] 25.4 mg/mg 10- [facility] Work Phone: Laboratory - Hematology and Cell countson 05-14-2022 Erythrocyte distribution width (RBC) [Entitic vol] 44.1 fL 35.1-43.9 [facility] Work Phone: Erythrocyte distribution width (RBC) [Ratio] 13.6 % 11.6-14.6 [facility] Work Phone: MCH (RBC) [Entitic mass] 29.2 pg 27.0-32.0 [facility] Work Phone: MCHC Auto (RBC) [Mass/Vol]on 05-14-2022 MCHC (RBC) [Mass/Vol] 33.0 g/dL 32-36 [facility] Work Phone: Mucus LM Ql (Urine sed)Order ed By: Dr. Burnham on 05-14-2022 Mucus Ql (Urine sed) 0 SEEN /hpf [facility] Nitrite Test strip Ql (U)Ord ered By: Dr. Burnham on 05-14-2022 Nitrite Ql (U) Positive Negative [facility] No Panel Informationon 05-14 Estimated Creatinine Clearance Calc 23.87 ml/min [facility] Work Phone: Estimated GFR (MDRD) Amer 50 mL/min >60 [facility] Work Phone: Comment on above: GFR Calc Estimated GFR (MDRD) Non-Af Amer 41 mL/min >60 [facility] Work Phone: Comment on above: Non- GFR Calc Platelets bldon 05-14-2022 Platelets (Bld) [#/Vol] 258 10*3/uL 150-450 [facility] Work Phone: Protein Test strip Ql (U)Ord ered By: Dr. Burnham on 05-14-2022 Protein Ql (U) 30 mg/dl Negative [facility] Serum or plasma calcium brian urement (mass/volume)on 05-14-2022 Calcium [Mass/Vol] 9.7 mg/dL 8.5-10.1 [facility] Work Phone: Serum or plasma creatinine m easurement (mass/volume)on 05-14-2022 Creatinine [Mass/Vol] 1.30 mg/dL 0.55-1.02 [facility] Work Phone: Comment on above: The validity of the calculated GFR & GFRAA in patients over 70 years has not been determined. Clinical correlation is essential. Serum or plasma urea nitroge n measurement (mass/volume)on 05-14-2022 Urea nitrogen [Mass/Vol] 33 mg/dL 7-18 [facility] Work Phone: Squamous epithelial cells de tection in urine sediment by light microscopyOrdered By: Dr. Burnham on 05-14-2022 Epithelial cells.squamous LM Ql (Urine sed) 5-10 SEEN /hpf 5-10 [facility] Thin prep Papanicolaou smear with manual screeningon 05-14-2022 Thin prep Papanicolaou smear with manual screening 4 5-15 [facility] Work Phone: Urine blood detectionOrdered By: Dr. Burnham on 05-14-2022 RBC Ql (U) Negative Negative [facility] RBC Ql (U) 0 SEEN /hpf 0-5 [facility] Urine clarityOrdered By: Dr. Burnham on 05-14-2022 Clarity (U) Clear Clear [facility] Urine color determinationOrd ered By: Dr. Burnham on 05-14-2022 Color (U) Straw Yellow [facility] Urine glucose detectionOrder ed By: Dr. Burnham on 05-14-2022 Glucose Ql (U) Normal mg/dl Normal [facility] Urine leukocyte esterase det ection by dipstickOrdered By: Dr. Burnham on 05-14-2022 Leukocyte esterase Test strip Ql (U) 500 /ul Negative [facility] Urine pHOrdered By: Dr. Aleyda mast on 05-14-2022 pH (U) 7.0 [pH] 5.0 - 8.0 [facility] Urine sediment bacteria coun t by microscopy (number/high power field)Ordered By: Dr. Burnham on 05-14-2022 Bacteria LM.HPF (Urine sed) [#/Area] 1 /[HPF] None Seen [facility] Urine specific gravity measu rementOrdered By: Dr. Burnham on 05-14-2022 Specific gravity (U) [Rel density] 1.010 1.002-1.03 0 [facility] Urobilinogen Auto test strip Ql (U)Ordered By: Dr. Burnham on 05-14-2022 Urobilinogen Ql (U) Normal mg/dl Normal [facility] CATECHOLAMINES TOTAL, URINE ([id number])Ordered By: Database Marketing Manager on 05-12-2022 DOPamine (24H U) [Mass/Time] 108 {ug/24_hr} Normal 0-510 [facility] Work Phone: Comment on above: Test(s) 475963-Potik phrine, Urine; 416382-Zjppjazgzvaega, Ur; 339096-Qechvmbm, Urine; 667658-Yjhlsjyclxmktsg, Ur; 947889-Oidpsnqqkefh, Ur;317065-VZA, Urinewas developed and its performance characteristics determinedby [employer]. It has not been cleared or approved by the Foodand Drug Administration.PATIENT NOT FASTINGPERFORMED BY: [facility] [id number] Information: START 05/12/22@845AM DOPamine (U) [Mass/Vol] 114 ug/L Normal [facility]; [facility] Work Phone: Comment on above: Test(s) 465081-Xdmuv phrine, Urine; 257939-Rpnacvyimxhbkm, Ur; 585718-Fqsfcmuf, Urine; 814635-Tebkdmqvcnmcrue, Ur; 110247-Fjbanllhfbro, Ur;388249-VSM, Urinewas developed and its performance characteristics determinedby [facility]. It has not been cleared or approved by the Foodand Drug Administration.PATIENT NOT FASTINGPERFORMED BY: [employer] [id number] Information: START 05/12/22@845AM EPINEPHrine (24H U) [Mass/Time] 1 {ug/24_hr} Normal 0-20 [facility] Work Phone: Comment on above: Test(s) 793558-Byyxy phrine, Urine; 837005-Aviqbvlpwqjgwg, Ur; 411364-Dmvkrqpe, Urine; 461711-Ssrfiqhfklkzbca, Ur; 266212-Pgyufjxfvzou, Ur;905548-EFT, Urinewas developed and its performance characteristics determinedby [facility]. It has not been cleared or approved by the Foodand Drug Administration.PATIENT NOT FASTINGPERFORMED BY: [employer] [id number] Information: START 05/12/22@845AM EPINEPHrine (U) [Mass/Vol] 1 ug/L Normal [facility]; [facility] Work Phone: Comment on above: Test(s) 832755-Fftte phrine, Urine; 133917-Ccamsexccmcozr, Ur; 097763-Cdjphegz, Urine; 943535-Mwxgqgezljfszez, Ur; 889208-Bpwrxezkbhfs, Ur;079805-KZN, Urinewas developed and its performance characteristics determinedby [facility]. It has not been cleared or approved by the Foodand Drug Administration.PATIENT NOT FASTINGPERFORMED BY: [employer] [id number] Information: START 05/12/22@845AM Norepinephrine (24H U) [Mass/Time] 17 {ug/24_hr} Normal 0-135 [facility]; [facility] Work Phone: Comment on above: Test(s) 069997-Xahgd phrine, Urine; 660847-Gbryjtsnrcgoyu, Ur; 887405-Jpdwkjyq, Urine; 997041-Mvaqpffrpdopptu, Ur; 080488-Qepvbcenpdnc, Ur;881819-OAI, Urinewas developed and its performance characteristics determinedby [facility]. It has not been cleared or approved by the Foodand Drug Administration.PATIENT NOT FASTINGPERFORMED BY: [employer] [address] [id number] Information: START 05/12/22@845AM Norepinephrine (U) [Mass/Vol] 18 ug/L Normal [facility]; [facility] Work Phone: Comment on above: Test(s) 563724-Xjtmn phrine, Urine; 382589-Sssigrtiahkucx, Ur; 861900-Ybryapwn, Urine; 301299-Hyabmhgirknlzqi, Ur; 167379-Mvmympvbwrts, Ur;562928-FVW, Urinewas developed and its performance characteristics determinedby [facility]. It has not been cleared or approved by the Foodand Drug Administration.PATIENT NOT FASTINGPERFORMED BY: [employer] [address] [id number] Information: START 05/12/22@845AM METANEPHRINES - URINE ([id number] )Ordered By: Database Marketing Manager on 05-12-2022 Metanephrine (24H U) [Mass/Time] 58 {ug/24_hr} Normal 36-209 [facility]; [facility] Work Phone: Comment on above: Test(s) 257661-Jfaxh phrine, Urine; 348485-Yzhboupavoldzv, Ur; 090161-Zctyiklt, Urine; 215047-Swzauhwspdngytn, Ur; 016409-Ygsybamspwmt, Ur;644979-XHK, Urinewas developed and its performance characteristics determinedby [facility]. It has not been cleared or approved by the Foodand Drug Administration.PATIENT NOT FASTINGPERFORMED BY: [employer] [address] [id number] Metanephrines (24H U) [Mass/Vol] 61 ug/L Normal [facility]; [facility] Work Phone: Comment on above: Test(s) 749283-Ywsra phrine, Urine; 777516-Ujdcfnxvrfnnvp, Ur; 456920-Iqakszkl, Urine; 857373-Wxjetockklyolxj, Ur; 884695-Mnuhgnxskhik, Ur;738832-VPO, Urinewas developed and its performance characteristics determinedby [facility]. It has not been cleared or approved by the Foodand Drug Administration.PATIENT NOT FASTINGPERFORMED BY: [employer] [address] [id number] Normetanephrine (24H U) [Mass/Time] 244 {ug/24_hr} Normal 131-612 [facility]; [facility] Work Phone: Comment on above: Test(s) 063200-Misra phrine, Urine; 796643-Tcnjwistjbzlaj, Ur; 914200-Xfokcxcf, Urine; 540839-Apsrmdhenahbmuv, Ur; 908071-Quxntqeipudn, Ur;515370-JLQ, Urinewas developed and its performance characteristics determinedby [facility]. It has not been cleared or approved by the Foodand Drug Administration.PATIENT NOT FASTINGPERFORMED BY: [employer] [address] [id number] Normetanephrine (24H U) [Mass/Vol] 257 ug/L Normal [facility]; [facility] Work Phone: Comment on above: Test(s) 067376-Sfstq phrine, Urine; 190909-Fosyeaofujninx, Ur; 588620-Ypwpyhmt, Urine; 647620-Qutmtnrftdcxeiw, Ur; 211357-Ujawkwikfflm, Ur;035045-RHL, Urinewas developed and its performance characteristics determinedby [facility]. It has not been cleared or approved by the Foodand Drug Administration.PATIENT NOT FASTINGPERFORMED BY: [employer] [address] [id number] URINE VMA ([id number])Ordered By: Database Marketing Manager on 05-12-2022 Vanillylmandelate (24H U) [Mass/Time] 2.8 {mg/24_hr} Normal 0.0-7.5 [facility]; [facility] Work Phone: Comment on above: Test(s) 842149-Cfkff phrine, Urine; 443118-Ymtkpmsngphtfn, Ur; 522782-Rjvqnmgg, Urine; 838713-Wdrbkkncjxgeucr, Ur; 825041-Eugxpuavkhds, Ur;958085-IVO, Urinewas developed and its performance characteristics determinedby [facility]. It has not been cleared or approved by the Foodand Drug Administration.PATIENT NOT FASTINGPERFORMED BY: [employer] [id number] Vanillylmandelate (U) [Mass/Vol] 2.9 mg/L Normal [facility]; [facility] Work Phone: Comment on above: Test(s) 164968-Eqtci phrine, Urine; 828396-Veaixcqjhwezaf, Ur; 642569-Vhptlign, Urine; 534536-Esadpbsveifyvkx, Ur; 772969-Vbrfiaisluwr, Ur;868791-AKY, Urinewas developed and its performance characteristics determinedby [facility]. It has not been cleared or approved by the Foodand Drug Administration.PATIENT NOT FASTINGPERFORMED BY: [employer] [id number] ALDOSTERONE ([id number])Ordered B y: Database Marketing Manager on 05-10-2022 Aldosterone [Mass/Vol] <1.0 Normal 0.0-30.0 [facility]; [facility] Work Phone: Comment on above: Test(s) 026471-Miqnf terone; 724742-Vvlxm Activity, Plasmawas developed and its performance characteristics determinedby [facility]. It has not been cleared or approved by the Foodand Drug Administration.PATIENT NOT FASTINGPERFORMED BY: [employer] [address] [id number] RENIN ([id number])Ordered By: [facility] tem Wind Development Director on 05-10-2022 Renin (P) [Catalytic activity/Vol] 0.871 {ng/mL/hr} Normal 0.167-5.38 0 [facility]; [facility] Work Phone: Comment on above: Test(s) 526219-Zlqom terone; 192796-Dbgln Activity, Plasmawas developed and its performance characteristics determinedby [facility]. It has not been cleared or approved by the Foodand Drug Administration.PATIENT NOT FASTINGPERFORMED BY: [facility] [id number] Glucose Glucometer (BldC) [M ass/Vol]Ordered By: Dr. Michel on 04-30-2022 Glucose [Mass/Vol] 114 mg/dL 74-106 [facility] Comment on above: MANAGEMENT OF PATIEN T CARE PER NURSING PROTOCOL Basophil percentageOrdered B y: Dr. Michel on 04-25-2022 Basophil percentage 108 mg/dL 74-106 [facility] Basophil percentage 7.3 g/dL 6.4-8.2 [facility] Basophil percentage 0.90 mg/dL 0.20-1.00 [facility] Basophil percentage 142 mmol/L 136-145 [facility] Basophil percentage 4.7 mmol/L 3.5-5.1 [facility] Basophil percentage 110 mmol/L 98-107 [facility] Basophils (Bld) [#/Vol] 7.8 10*3/uL 4.4-11.0 [facility] Basophil percentageon 2021 Bilirubin [Mass/Vol] 0.90 mg/dL 0.20-1.00 [facility] Work Phone: Comment on above: For patients on eltr ombopag therapy, use of [place] TBIL is not recommended. Chloride [Moles/Vol] 110 mmol/L 98-107 [facility] Work Phone: Glucose [Mass/Vol] 108 mg/dL 74-106 [facility] Work Phone: Comment on above: Fasting Glucose resu lt from 100 to 125 mg/dL suggests IMPAIRED HOMEOSTASIS per A.D.A. criteria. Potassium [Moles/Vol] 4.7 mmol/L 3.5-5.1 [facility] Work Phone: Protein [Mass/Vol] 7.3 g/dL 6.4-8.2 [facility] Work Phone: Sodium [Moles/Vol] 142 mmol/L 136-145 [facility] Work Phone: WBC (Bld) [#/Vol] 7.8 10*3/uL 4.4-11.0 [facility] Work Phone: Blood erythrocytes count (nu mber/volume)Ordered By: Dr. Michel on 04-25-2022 RBC (Bld) [#/Vol] 4.73 10*6/uL 4.2-5.4 [facility] Blood hemoglobin measurement (mass/volume)Ordered By: Dr. Michel on 04-25-2022 Hemoglobin (Bld) [Mass/Vol] 14.3 g/dL 12.0-15.0 [facility] Blood platelet mean volumeOr dered By: Dr. Michel on 04-25-2022 Platelet mean volume (Bld) [Entitic vol] 10.3 fL 6.2-12.0 [facility] Determination of erythrocyte mean corpuscular volume (MCV)Ordered By: Dr. Michel on 04-25-2022 MCV (RBC) [Entitic vol] 91.5 fL 81-99 [facility] Hematocrit Auto (Bld) [Volum e fraction]Ordered By: Dr. Michel on 04-25-2022 Hematocrit (Bld) [Volume fraction] 43.3 % 37-47 [facility] Laboratory - Chemistry and C hemistry - challengeon 04-25-2022 ALP [Catalytic activity/Vol] 62 U/L 45-117 [facility] Work Phone: ALT [Catalytic activity/Vol] 24 U/L 13-56 [facility] Work Phone: CO2 [Moles/Vol] 29.0 mmol/L 21.0-32.0 [facility] Work Phone: Globulin (S) [Mass/Vol] 4.0 g/dL 2.2-4.2 [facility] Work Phone: Urea nitrogen/Creatinine [Mass ratio] 29.8 mg/mg 10-20 [facility] Work Phone: Laboratory - Hematology and Cell countson 04-25-2022 Erythrocyte distribution width (RBC) [Entitic vol] 46.3 fL 35.1-43.9 [facility] Work Phone: Erythrocyte distribution width (RBC) [Ratio] 13.5 % 11.6-14.6 [facility] Work Phone: MCH (RBC) [Entitic mass] 30.2 pg 27.0-32.0 [facility] Work Phone: MCHC Auto (RBC) [Mass/Vol]Or dered By: Dr. Michel on 04-25-2022 MCHC (RBC) [Mass/Vol] 33.0 g/dL 32-36 [facility] No Panel Informationon 04-25 Estimated GFR (MDRD) Amer 50 mL/min >60 [facility] Work Phone: Comment on above: GFR Calc Estimated GFR (MDRD) Non-Af Amer 41 mL/min >60 [facility] Work Phone: Comment on above: Non- GFR Calc No Panel InformationOrdered By: Dr. Michel on 04-25-2022 30.2 pg 27.0-32.0 [facility] 13.5 % 11.6-14.6 [facility] 46.3 fl 35.1-43.9 [facility] 41 mL/min >60 [facility] 50 mL/min >60 [facility] 29.8 RATIO 10-20 [facility] 4.0 g/dL 2.2-4.2 [facility] 62 U/L 45-117 [facility] 24 U/L 13-56 [facility] 29.0 mmol/L 21.0-32.0 [facility] Platelets bldOrdered By: Dr. Michel on 04-25-2022 Platelets (Bld) [#/Vol] 213 10*3/uL 150-450 [facility] Serum or plasma albumin brian urement (mass/volume)Ordered By: Dr. Michel on 04-25-2022 Albumin [Mass/Vol] 3.3 g/dL 3.2-5.0 [facility] Serum or plasma albumin/glob ulin mass ratioOrdered By: Dr. Michel on 04-25-2022 Albumin/Globulin [Mass ratio] 0.8 {ratio} 0.9-2.4 [facility] Serum or plasma calcium brian urement (mass/volume)Ordered By: Dr. Michel on 04-25-2022 Calcium [Mass/Vol] 10.2 mg/dL 8.5-10.1 [facility] Serum or plasma creatinine m easurement (mass/volume)Ordered By: Dr. Michel on 04-25-2022 Creatinine [Mass/Vol] 1.31 mg/dL 0.55-1.02 [facility] Comment on above: The validity of the calculated GFR & GFRAA in patients over 70 years has not been determined. Clinical correlation is essential. Serum or plasma urea nitroge n measurement (mass/volume)Ordered By: Dr. Michel on 04-25-2022 Urea nitrogen [Mass/Vol] 39 mg/dL 7-18 [facility] Thin prep Papanicolaou smear with manual screeningOrdered By: Dr. Michel on 04-25-2022 Thin prep Papanicolaou smear with manual screening 14 U/L 15-37 [facility] Thin prep Papanicolaou smear with manual screening 3 5-15 [facility] ACTH ([id number])Ordered By: Syst em Wind Development Director on 03-11-2022 Corticotropin (P) [Mass/Vol] 32.2 pg/mL Normal 7.2-63.3 [facility] Work Phone: Comment on above: ACTH reference inter sophia for samples collected between 7 and 10 AM. PATIENT NOT FASTINGP ERFORMED BY: HALEIGH PxRadia[address] / Nuvem ShopAtrium Health Huntersville [id number] Cortisol ([id number])Ordered By: Database Marketing Manager on 03-11-2022 Cortisol [Mass/Vol] 11.4 ug/dL Normal Compr ehens[facility]; [facility] Work Phone: Comment on above: Cortisol AM 6.2 - 19 .4 Cortisol PM 2.3 - 11.9 PATIENT NOT FASTINGP ERFORMED BY: [employer] [place] [id number] Catecholamines,24-Hour Urine ([id number])Ordered By: Database Marketing Manager on 03-05-2022 DOPamine (24H U) [Mass/Time] 159 {ug/24_hr} Normal 0-510 [facility]; [facility] Work Phone: Comment on above: Test(s) 210375-Pxyju phrine, Urine; 321280-Ejiefmeoogajir, Ur; 238317-Qbxlprhj, Urine; 766804-Dyhowhscvfxucbr, Ur; 230320-Sgjkeqsonrzs, Ur;774802-Opyhbpso,F,ug/L,Uwas developed and its performance characteristics determinedby [facility]. It has not been cleared or approved by the Foodand Drug Administration.PATIENT NOT FASTINGPERFORMED BY: Referly [address] [id number] DOPamine (U) [Mass/Vol] 106 ug/L Normal C omprehensive Internal Medicine; [facility] Work Phone: Comment on above: Test(s) 396137-Spvqf phrine, Urine; 908519-Qfjkwphoycvpdg, Ur; 262544-Lcauxfjw, Urine; 071991-Azyxabkgufbulvp, Ur; 639462-Oynhjobhchnn, Ur;891554-Armqjlpm,F,ug/L,Uwas developed and its performance characteristics determinedby [facility]. It has not been cleared or approved by the Foodand Drug Administration.PATIENT NOT FASTINGPERFORMED BY: [employer] [id number] EPINEPHrine (24H U) [Mass/Time] 2 {ug/24_hr} Normal 0-20 [facility]; [facility] Work Phone: Comment on above: Test(s) 181652-Oihnq phrine, Urine; 461872-Uudalkllvvddpu, Ur; 447648-Mwrsxgjz, Urine; 578292-Gsagxjsmyjauohg, Ur; 861577-Knrocfterzov, Ur;934158-Lllojrck,F,ug/L,Uwas developed and its performance characteristics determinedby [facility]. It has not been cleared or approved by the Foodand Drug Administration.PATIENT NOT FASTINGPERFORMED BY: [employer] [address] [id number] EPINEPHrine (U) [Mass/Vol] 1 ug/L Normal [facility]; [facility] Work Phone: Comment on above: Test(s) 550663-Puwpw phrine, Urine; 964883-Vcbqvwwcffismb, Ur; 771165-Bfgqtqqk, Urine; 583264-Fkzfnoschitxjhu, Ur; 042298-Nldohzterglg, Ur;727087-Otxneqya,F,ug/L,Uwas developed and its performance characteristics determinedby [facility]. It has not been cleared or approved by the Foodand Drug Administration.PATIENT NOT FASTINGPERFORMED BY: [employer] [address] [id number] Norepinephrine (24H U) [Mass/Time] 30 {ug/24_hr} Normal 0-135 [facility]; [facility] Work Phone: Comment on above: Test(s) 581675-Lvcmy phrine, Urine; 021129-Ghznrvqinxmyqo, Ur; 118574-Btmexheb, Urine; 366084-Zihxgzuhjfhsvut, Ur; 016993-Lmtwjidsysxv, Ur;486983-Dsvkepdc,F,ug/L,Uwas developed and its performance characteristics determinedby [facility]. It has not been cleared or approved by the Foodand Drug Administration.PATIENT NOT FASTINGPERFORMED BY: [employer] [address] [id number] Norepinephrine (U) [Mass/Vol] 20 ug/L Normal [facility]; [facility] Work Phone: Comment on above: Test(s) 214481-Iccfj phrine, Urine; 826861-Cjcstdluexwzug, Ur; 966511-Gbssyjai, Urine; 671317-Unedztagmtowjqf, Ur; 732000-Zltpsioynvod, Ur;393665-Lghqzykb,F,ug/L,Uwas developed and its performance characteristics determinedby [facility]. It has not been cleared or approved by the Foodand Drug Administration.PATIENT NOT FASTINGPERFORMED BY: [facility] [address] [id number] Cortisol,Urinary Free 24- Ho ur Urine ([id number])Ordered By: Database Marketing Manager on 03-05-2022 Cortisol Free (24H U) [Mass/Time] 11 {ug/24_hr} Normal 3-49 [facility]; [facility] Work Phone: Comment on above: Test(s) 564163-Gwmqy phrine, Urine; 787354-Nyqnsddjieoyto, Ur; 404175-Azzwyxxz, Urine; 600799-Ceddpvmpzvrlqiy, Ur; 517200-Avwrntbnnuvo, Ur;900413-Ondtcxfl,F,ug/L,Uwas developed and its performance characteristics determinedby [facility]. It has not been cleared or approved by the Foodand Drug Administration.PATIENT NOT FASTINGPERFORMED BY: [employer] [address] [id number] Cortisol Free (U) [Mass/Vol] 7 ug/L Normal [facility]; [facility] Work Phone: Comment on above: Test(s) 098971-Kglvp phrine, Urine; 781346-Oidnqsedrywdgo, Ur; 874526-Ojypaeup, Urine; 713675-Cawnncxqbhzuqvv, Ur; 089529-Mhzqhtfpcygf, Ur;027574-Hsypynov,F,ug/L,Uwas developed and its performance characteristics determinedby [facility]. It has not been cleared or approved by the Foodand Drug Administration.PATIENT NOT FASTINGPERFORMED BY: Referly [address] [id number] METANEPHRINES - URINE ([id number] )Ordered By: Database Marketing Manager on 03-05-2022 Metanephrine (24H U) [Mass/Time] 66 {ug/24_hr} Normal 36-209 [facility]; [facility] Work Phone: Comment on above: 24 hr urine; Test(s) 578628-Lyihwifhwbc, Urine; 620154-Amhvsyhiedtwku, Ur; 462580-Wqjfzscm, Urine; 665038-Oqctempdvislmwr, Ur; 265525-Fqqkffbibfoh, Ur;109391-Pxzsuheg,F,ug/L,Uwas developed and its performance characteristics determinedby [facility]. It has not been cleared or approved by the Foodand Drug Administration.PATIENT NOT FASTINGPERFORMED BY: [employer] [address] [id number] Metanephrines (24H U) [Mass/Vol] 44 ug/L Normal [facility]; [facility] Work Phone: Comment on above: 24 hr urine; Test(s) 391135-Ldiwtvmrdfr, Urine; 289533-Hwdskwnqffrmoi, Ur; 184094-Inglucbr, Urine; 982292-Clqhftsmflfmpcm, Ur; 093866-Xjbspnfblmww, Ur;981346-Sawabssa,F,ug/L,Uwas developed and its performance characteristics determinedby [facility]. It has not been cleared or approved by the Foodand Drug Administration.PATIENT NOT FASTINGPERFORMED BY: Referly [address] [id number] Normetanephrine (24H U) [Mass/Time] 296 {ug/24_hr} Normal 131-612 [facility]; [facility] Work Phone: Comment on above: 24 hr urine; Test(s) 439385-Vtakpfzjwoz, Urine; 703132-Jisvkgbxsajxox, Ur; 171872-Nvhvfyfb, Urine; 818230-Uwhlcvkxgyfmlyf, Ur; 310151-Sofqrjaamlrc, Ur;778667-Failfbby,F,ug/L,Uwas developed and its performance characteristics determinedby [facility]. It has not been cleared or approved by the Foodand Drug Administration.PATIENT NOT FASTINGPERFORMED BY: Referly [address] [id number] Normetanephrine (24H U) [Mass/Vol] 197 ug/L Normal [facility]; [facility] Work Phone: Comment on above: 24 hr urine; Test(s) 636745-Pwwjiebemfk, Urine; 778670-Pjkidqlypoycqr, Ur; 901314-Mihcbvxg, Urine; 350702-Dbisffyudspjant, Ur; 587185-Dzxfukcrtxgc, Ur;344973-Sbrawyhg,F,ug/L,Uwas developed and its performance characteristics determinedby [facility]. It has not been cleared or approved by the Foodand Drug Administration.PATIENT NOT FASTINGPERFORMED BY: Referly [address] [id number] Absolute lymphocyte counton 08-01-2022 Lymphocytes Auto (Unsp spec) [#/Vol] 2.75 10*3/uL 0.83-4.51 [facility] Work Phone: Basophil percentageon 2021 Basophils/100 WBC (Bld) 0.7 % 0-1 [facility] Work Phone: Bilirubin [Mass/Vol] 1.20 mg/dL 0.20-1.00 [facility] Work Phone: Comment on above: For patients on eltr ombopag therapy, use of [place] TBIL is not recommended. Chloride [Moles/Vol] 109 mmol/L 98-107 [facility] Work Phone: Eosinophils/100 WBC (Bld) 3.4 % 0-5 [facility] Work Phone: Glucose [Mass/Vol] 92 mg/dL 74-106 [facility] Work Phone: Neutrophils (Bld) [#/Vol] 6.1 10*3/uL 2.0-7.7 [facility] Work Phone: Neutrophils/100 WBC (Bld) 59.7 % 47-70 [facility] Work Phone: Potassium [Moles/Vol] 4.6 mmol/L 3.5-5.1 [facility] Work Phone: Protein [Mass/Vol] 7.2 g/dL 6.4-8.2 [facility] Work Phone: Sodium [Moles/Vol] 137 mmol/L 136-145 [facility] Work Phone: WBC (Bld) [#/Vol] 10.1 10*3/uL 4.4-11.0 [facility] Work Phone: Blood erythrocytes count (nu mber/volume)on 02-18-2022 RBC (Bld) [#/Vol] 4.40 10*6/uL 4.2-5.4 [facility] Work Phone: Blood hemoglobin measurement (mass/volume)on 02-18-2022 Hemoglobin (Bld) [Mass/Vol] 13.1 g/dL 12.0-15.0 [facility] Work Phone: Blood lymphocytes/100 leukoc yteson 02-18-2022 Lymphocytes/100 WBC (Bld) 27.1 % 19-41 [facility] Work Phone: Blood monocytes/100 leukocyt eson 02-18-2022 Monocytes/100 WBC (Bld) 8.8 % 0-10 [facility] Work Phone: Blood platelet mean volumeon 02-18-2022 Platelet mean volume (Bld) [Entitic vol] 10.6 fL 6.2-12.0 [facility] Work Phone: Determination of erythrocyte mean corpuscular volume (MCV)on 02-18-2022 MCV (RBC) [Entitic vol] 90.9 fL 81-99 [facility] Work Phone: Erythrocyte sedimentation ra nyasia 02-18-2022 ESR (Bld) [Velocity] 26 mm/h 0-30 [facility] Work [facility]: Hematocrit Auto (Bld) [Volum e fraction]on 02-18-2022 Hematocrit (Bld) [Volume fraction] 40.0 % 37-47 [facility] Work Phone: Laboratory - Chemistry and C hemistry - challengeon 02-18-2022 ALP [Catalytic activity/Vol] 67 U/L 45-117 [facility] Work Phone: ALT [Catalytic activity/Vol] 29 U/L 13-56 [facility] Work Phone: CO2 [Moles/Vol] 25.0 mmol/L 21.0-32.0 [facility] Work Phone: Globulin (S) [Mass/Vol] 3.8 g/dL 2.2-4.2 [facility] Work Phone: Urea nitrogen/Creatinine [Mass ratio] 29.5 mg/mg 10-20 [facility] Work Phone: Laboratory - Hematology and Cell countson 02-18-2022 Erythrocyte distribution width (RBC) [Entitic vol] 45.6 fL 35.1-43.9 [facility] Work Phone: Erythrocyte distribution width (RBC) [Ratio] 13.7 % 11.6-14.6 [facility] Work Phone: Immature granulocytes/100 WBC (Bld) 0.300 % 0.0-0.9 [facility] Work Phone: Comment on above: IG% - Immature Granu locytes (promyelocytes, myelocytes and metamyelocytes) > 1% indicates that a LEFT SHIFT is Present. MCH (RBC) [Entitic mass] 29.8 pg 27.0-32.0 [facility] Work Phone: Nucleated RBC/100 WBC (Bld) [Ratio] 0 % 0-5 [facility] Work Phone: MCHC Auto (RBC) [Mass/Vol]on 02-18-2022 MCHC (RBC) [Mass/Vol] 32.8 g/dL 32-36 [facility] Work Phone: No Panel Informationon 02-18 Estimated GFR (MDRD) Amer 59 mL/min >60 [facility] Work Phone: Comment on above: GFR Calc Estimated GFR (MDRD) Non-Af Amer 49 mL/min >60 [facility] Work Phone: Comment on above: Non- GFR Calc Platelets bldon 02-18-2022 Platelets (Bld) [#/Vol] 252 10*3/uL 150-450 [facility] Work Phone: Serum or plasma C reactive p rotein measurement (mass/volume)on 02-18-2022 CRP [Mass/Vol] 8.28 mg/L 0.0-3.0 [facility] Work Phone: Comment on above: C-Reactive Protein ( CRP) provides useful information for thediagnosis, therapy and monitoring of inflammatory processesand associated diseases. For the evaluation of Relative Riskfor Cardiovascular Disease, a High Sensitivity CRP (HSCRP)should be ordered. Serum or plasma albumin brian urement (mass/volume)on 02-18-2022 Albumin [Mass/Vol] 3.4 g/dL 3.2-5.0 [facility] Work Phone: Serum or plasma albumin/glob ulin mass ratioon 02-18-2022 Albumin/Globulin [Mass ratio] 0.9 {ratio} 0.9-2.4 [facility] Work Phone: Serum or plasma calcium brian urement (mass/volume)on 02-18-2022 Calcium [Mass/Vol] 10.0 mg/dL 8.5-10.1 [facility] Work Phone: Serum or plasma creatinine m easurement (mass/volume)on 02-18-2022 Creatinine [Mass/Vol] 1.12 mg/dL 0.55-1.02 [facility] Work Phone: Comment on above: The validity of the calculated GFR & GFRAA in patients over 70 years has not been determined. Clinical correlation is essential. Serum or plasma urea nitroge n measurement (mass/volume)on 02-18-2022 Urea nitrogen [Mass/Vol] 33 mg/dL 7-18 [facility] Work Phone: Thin prep Papanicolaou smear with manual screeningon 02-18-2022 Thin prep Papanicolaou smear with manual screening 19 U/L 15-37 [facility] Work Phone: Thin prep Papanicolaou smear with manual screening 3 5-15 [facility] Work Phone: Blood Glucose , Office ([phone])Ordered By: Keri Johnson on 12-31-2021 Glucose Glucometer (BldC) [Moles/Vol] 96 1 Normal [facility]; [facility] Work Phone: HgA1C , Office ([phone])Ordere d By: Martina Lal on 12-31-2021 HbA1c (Bld) [Mass fraction] 5.9 % Normal 4.6 - 7.1 [facility]; [facility] Work Phone: POTASSIUM SERUM ([id number])Order ed By: Database Marketing Manager on 12-19-2021 Potassium [Moles/Vol] 5.4 mmol/L Abnormal 3.5-5.2 [facility] prehensive Internal Medicine; [facility] Work Phone: Comment on above: PATIENT NOT FASTINGP ERFORMED BY: CB [facility] [id number]Dublin [place] [id number] METABOLIC PANEL, COMPREHENSI VE ([id number])Ordered By: Database Marketing Manager on 12-18-2021 Albumin [Mass/Vol] 4.2 g/dL Normal 3.6-4.6 [facility]; [facility] Work Phone: Comment on above: PATIENT NOT FASTINGP ERFORMED BY: CB [facility] [id number] [address] RoadDublin [place] [id number] Albumin/Globulin [Mass ratio] 1.6 {ratio} Normal 1.2-2.2 [facility]; [facility] Work Phone: Comment on above: PATIENT NOT FASTINGP ERFORMED BY: CB [facility] [id number] [address]Dublin [place] [id number] ALP [Catalytic activity/Vol] 67 U/L Normal 44-121 [facility]; [facility] Work Phone: Comment on above: PATIENT NOT FASTINGP ERFORMED BY: CB [facility] [id number] [address]Dublin [place] [id number] ALT [Catalytic activity/Vol] 13 U/L Normal 0-32 [facility]; [facility] Work Phone: Comment on above: PATIENT NOT FASTINGP ERFORMED BY: CB [facility] [id number] [address] RoadDublin [place] [id number] AST [Catalytic activity/Vol] 18 U/L Normal 0-40 [facility]; [facility] Work Phone: Comment on above: PATIENT NOT FASTINGP ERFORMED BY: CB [facility] [id number] [address]Dublin [place] [id number] Bilirubin [Mass/Vol] 1.1 mg/dL Normal 0.0-1.2 Comp rehensive [facility]; [facility] Work Phone: Comment on above: PATIENT NOT FASTINGP ERFORMED BY: HALEIGH Labcoedgardo WarrenSkquua2355 [address] RoadDublin [place] [id number] Calcium [Mass/Vol] 10.1 mg/dL Normal 8.7-10.3 Compre ecu healthive [facility]; [facility] Work Phone: Comment on above: PATIENT NOT FASTINGP ERFORMED BY: CB [facility] [id number] [address]Dublin [place] [id number] Chloride [Moles/Vol] 105 mmol/L Normal 96-106 Comp rehensive [facility]; [facility] Work Phone: Comment on above: PATIENT NOT FASTINGP ERFORMED BY: HALEIGH [facility] [id number] [address] RoadDublin [place] [id number] CO2 [Moles/Vol] 18 mmol/L Abnormal 20-29 Comprehen sive [facility]; [facility] Work Phone: Comment on above: PATIENT NOT FASTINGP ERFORMED BY: HALEIGH [facility] [id number] [address]Dublin [place] [id number] Creatinine [Mass/Vol] 1.72 mg/dL Abnormal 0.57-1.00 Com prehens[facility]; [facility] Work Phone: Comment on above: PATIENT NOT FASTINGP ERFORMED BY: HALEIGH [facility] Ulfzpf4611 [address]Dublin [place] [id number] GFR/1.73 sq M.predicted among non-blacks MDRD (S/P/Bld) [Vol rate/Area] 29 mL/min/{1.73_m2} Abnormal Comprehensiv e [facility]; [facility] Work Phone: Comment on above: PATIENT NOT FASTINGP ERFORMED BY: HALEIGH [facility] Odjpvx0813 [address]Dublin [place] [id number] Globulin (S) [Mass/Vol] 2.6 g/dL Normal 1.5-4.5 C omprehensive [facility]; [facility] Work Phone: Comment on above: PATIENT NOT FASTINGP ERFORMED BY: HALEIGH [facility] Uhzbvx2241 [address]Dublin [place] [id number] Glucose [Mass/Vol] 113 mg/dL Abnormal 65-99 [facility]; [facility] Work Phone: Comment on above: PATIENT NOT FASTINGP ERFORMED BY: CB [facility] Dykbdl3603 [address]Dublin [place] [id number] Potassium [Moles/Vol] 5.7 mmol/L Abnormal 3.5-5.2 [facility]; [facility] Work Phone: Comment on above: Client Requested Fla g PATIENT NOT FASTINGP ERFORMED BY: HALEIGH [facility] [id number] [address]Dublin [place] [id number] Protein [Mass/Vol] 6.8 g/dL Normal 6.0-8.5 [facility]; [facility] Work Phone: Comment on above: PATIENT NOT FASTINGP ERFORMED BY: CB [facility] Dhssji4050 [address]Dublin [place] [id number] Sodium [Moles/Vol] 139 mmol/L Normal 134-144 [facility]; [facility] Work Phone: Comment on above: PATIENT NOT FASTINGP ERFORMED BY: HALEIGH [facility] [id number] [address] RoadDublin [place] [id number] Urea nitrogen [Mass/Vol] 50 mg/dL Abnormal 8-27 [facility]; [facility] Work Phone: Comment on above: PATIENT NOT FASTINGP ERFORMED BY: CB [facility] Tlrnit1912 [address]Dublin [place] [id number] Urea nitrogen/Creatinine [Mass ratio] 29 mg/mg Abnormal 12-28 [facility]; [facility] Work Phone: Comment on above: PATIENT NOT FASTINGP ERFORMED BY: CB [facility] [id number] [address]Dublin [place] [id number] PARATHORMONE ([id number])Ordered By: Database Marketing Manager on 12-18-2021 Parathyrin.intact [Mass/Vol] 47 pg/mL Normal 15-65 [facility]; [facility] Work Phone: Comment on above: PATIENT NOT FASTINGP ERFORMED BY: HALEIGH [facility] [place] [employer] [employer] [place] [id number] No Panel Informationon 10-12 Parathyroid Hormone (Intact) 85.8 pg/mL 18.4-80.1 [facility] Work Phone: Serum or plasma calcium brian urement (mass/volume)on 10-12-2021 Calcium [Mass/Vol] 10.0 mg/dL 8.5-10.1 [facility] Work Phone: Renal function Panel ([id number]) Ordered By: Database Marketing Manager on 10-03-2021 Albumin [Mass/Vol] 4.1 g/dL Normal 3.6-4.6 [facility]; [facility] Work Phone: Comment on above: PATIENT NOT FASTINGP ERFORMED BY: HALEIGH [place] Mkijmi[address] Conne[address]ain [place] [id number] Calcium [Mass/Vol] 10.6 mg/dL Abnormal 8.7-10.3 [facility]; [facility] Work Phone: Comment on above: PATIENT NOT FASTINGP ERFORMED BY: HALEIGH Warrenlin[address] Conne[address] Datablin [place] [id number] Chloride [Moles/Vol] 100 mmol/L Normal 96-106 [facility] rehensive Internal Medicine; [facility] Work Phone: Comment on above: PATIENT NOT FASTINGP ERFORMED BY: CB [facility] Zdsams1379 [address]Dublin [place] [id number] CO2 [Moles/Vol] 24 mmol/L Normal 20-29 [facility]; [facility] Work Phone: Comment on above: PATIENT NOT FASTINGP ERFORMED BY: HALEIGH [facility] [id number] [facility] CenterD[facility] [place] [id number] Creatinine [Mass/Vol] 1.11 mg/dL Abnormal 0.57-1.00 [facility] prehensive Internal Medicine; [facility] Work Phone: Comment on above: PATIENT NOT FASTINGP ERFORMED BY: CB [facility] Gphsqu5245 [address]Dublin [place] [id number] GFR/1.73 sq M.predicted among non-blacks MDRD (S/P/Bld) [Vol rate/Area] 49 mL/min/{1.73_m2} Abnormal Comprehensiv e Internal [facility]; [facility] Work Phone: Comment on above: PATIENT NOT FASTINGP ERFORMED BY: CB [facility] Vwbgbo4947 [address] RoadDublin [place] [id number] Glucose [Mass/Vol] 132 mg/dL Abnormal 65-99 [facility]; [facility] Work Phone: Comment on above: PATIENT NOT FASTINGP ERFORMED BY: CB [facility] Feakwl9705 [address] RoadDublin [place] [id number] Phosphate [Mass/Vol] 3.1 mg/dL Normal 3.0-4.3 [facility]; [facility] Work Phone: Comment on above: PATIENT NOT FASTINGP ERFORMED BY: CB [facility] Ydilcb1261 [address] RoadDublin [place] [id number] Potassium [Moles/Vol] 4.4 mmol/L Normal 3.5-5.2 [facility]; [facility] Work Phone: Comment on above: PATIENT NOT FASTINGP ERFORMED BY: CB [facility] Ajzghx3069 [address] RoadDublin [place] [id number] Sodium [Moles/Vol] 140 mmol/L Normal 134-144 [facility]; [facility] Work Phone: Comment on above: PATIENT NOT FASTINGP ERFORMED BY: CB [facility] Krpipd3586 [address] RoadDublin [place] [id number] Urea nitrogen [Mass/Vol] 22 mg/dL Normal 8-27 [facility]; [facility] Work Phone: Comment on above: PATIENT NOT FASTINGP ERFORMED BY: CB [facility] Skvaee5120 [address] RoadDublin [place] [id number] Urea nitrogen/Creatinine [Mass ratio] 20 mg/mg Normal 12-28 [facility]; [facility] Work Phone: Comment on above: PATIENT NOT FASTINGP ERFORMED BY: [employer] Nkyafe6695 [address] [facility] [id number] ALDOSTERONE ([id number])Ordered B y: Database Marketing Manager on 10-01-2021 Aldosterone [Mass/Vol] 2.6 ng/dL Normal 0.0-30.0 [facility] Internal Medicine; [facility] Work Phone: Comment on above: Test(s) 569833-Lmhxw terone; 329899-Tnutg Activity, Plasmawas developed and its performance characteristics determinedby [employer]. It has not been cleared or approved by the Foodand Drug Administration.PATIENT NOT FASTINGPERFORMED BY: [employer] [address] [id number] RENIN ([id number])Ordered By: martha tem Wind Development Director on 10-01-2021 Renin (P) [Catalytic activity/Vol] 0.839 {ng/mL/hr} Normal 0.167-5.38 0 [facility]; [facility] Work Phone: Comment on above: Test(s) 604397-Yrtss terone; 531673-Oiptz Activity, Plasmawas developed and its performance characteristics determinedby [employer]. It has not been cleared or approved by the Foodand Drug Administration.PATIENT NOT FASTINGPERFORMED BY: [employer] [address] [id number] CATECHOLAMINES TOTAL, URINE (73325)Ordered By: Database Marketing Manager on 09-30-2021 DOPamine (24H U) [Mass/Time] 182 {ug/24_hr} Normal 0-510 [facility]; [facility] Work Phone: Comment on above: Test(s) 669260-Uxjab phrine, Urine; 323568-Gfdovnyjfttmto, Ur; 023096-Xsttvajx, Urine; 545651-Gvmvhqnjndtlrfp, Ur; 727786-Jruteeplblcn, Ur;473688-KJU, Urinewas developed and its performance characteristics determinedby [employer]. It has not been cleared or approved by the Foodand Drug Administration.PATIENT NOT FASTINGPERFORMED BY: [facility] [address] [id number] Information: START 09/30/21@9AM DOPamine (U) [Mass/Vol] 140 ug/L Normal C omprehensive Internal Medicine; [facility] Work Phone: Comment on above: Test(s) 662687-Ioaob phrine, Urine; 365964-Hlariyeeybsimi, Ur; 398261-Iipjdwxf, Urine; 853961-Myxgsadhimzxiyx, Ur; 092673-Aezwnlumvqnw, Ur;317074-UAB, Urinewas developed and its performance characteristics determinedby [facility]. It has not been cleared or approved by the Foodand Drug Administration.PATIENT NOT FASTINGPERFORMED BY: [facility] [address] [id number] Information: START 09/30/21@9AM EPINEPHrine (24H U) [Mass/Time] 4 {ug/24_hr} Normal 0-20 [facility]; [facility] Work Phone: Comment on above: Test(s) 242709-Kylce phrine, Urine; 774665-Ewcqcjhnpefuya, Ur; 164702-Crvkqpmq, Urine; 086214-Awluwbgthylmwgm, Ur; 362748-Aofoefdmhcws, Ur;602741-TSL, Urinewas developed and its performance characteristics determinedby [facility]. It has not been cleared or approved by the Foodand Drug Administration.PATIENT NOT FASTINGPERFORMED BY: [facility] [address] [id number] Information: START 09/30/21@9AM EPINEPHrine (U) [Mass/Vol] 3 ug/L Normal [facility]; [facility] Work Phone: Comment on above: Test(s) 466532-Jmeru phrine, Urine; 271417-Stnmsbqncobdok, Ur; 947680-Awwjqqyz, Urine; 810492-Irfwjchjofohwam, Ur; 663895-Rwgnctcnifqk, Ur;705517-WTF, Urinewas developed and its performance characteristics determinedby [facility]. It has not been cleared or approved by the Foodand Drug Administration.PATIENT NOT FASTINGPERFORMED BY: [facility] [id number] Information: START 09/30/21@9AM Norepinephrine (24H U) [Mass/Time] 52 {ug/24_hr} Normal 0-135 [facility]; [facility] Work Phone: Comment on above: Test(s) 336341-Byiyu phrine, Urine; 049003-Wljicesuhyawng, Ur; 744700-Qmjbztye, Urine; 995095-Umqwmufmzscwsks, Ur; 393201-Spicilsusrpm, Ur;744301-AUU, Urinewas developed and its performance characteristics determinedby [facility]. It has not been cleared or approved by the Foodand Drug Administration.PATIENT NOT FASTINGPERFORMED BY: [employer] [address] [id number] Information: START 09/30/21@9AM Norepinephrine (U) [Mass/Vol] 40 ug/L Normal [facility]; [facility] Work Phone: Comment on above: Test(s) 226209-Zsrua phrine, Urine; 842119-Ovofwlmdjhqtcl, Ur; 046716-Grsjkrrf, Urine; 153246-Ckbehatxkocfvxe, Ur; 218117-Ackmrqraceqy, Ur;610065-MOP, Urinewas developed and its performance characteristics determinedby [facility]. It has not been cleared or approved by the Foodand Drug Administration.PATIENT NOT FASTINGPERFORMED BY: [facility] [address] [id number] Information: START 09/30/21@9AM METANEPHRINES - URINE (19084 )Ordered By: Database Marketing Manager on 09-30-2021 Metanephrine (24H U) [Mass/Time] 61 {ug/24_hr} Normal 36-209 [facility]; [facility] Work Phone: Comment on above: Test(s) 177377-Bfvqe phrine, Urine; 681458-Vgxwztwstslehc, Ur; 823974-Vucupdne, Urine; 127807-Goodvrvjkiupqpo, Ur; 739898-Wkwrjvmnojks, Ur;398603-JTI, Urinewas developed and its performance characteristics determinedby [facility]. It has not been cleared or approved by the Foodand Drug Administration.PATIENT NOT FASTINGPERFORMED BY: [employer] [id number] Metanephrines (24H U) [Mass/Vol] 47 ug/L Normal [facility]; [facility] Work Phone: Comment on above: Test(s) 724494-Vajwj phrine, Urine; 817408-Cjxhdetihajkhp, Ur; 357521-Ocohsayy, Urine; 015698-Hwsngxkeyexyoqx, Ur; 484318-Sheppuzcvzgz, Ur;475346-FEK, Urinewas developed and its performance characteristics determinedby [facility]. It has not been cleared or approved by the Foodand Drug Administration.PATIENT NOT FASTINGPERFORMED BY: [employer] [address] [id number] Normetanephrine (24H U) [Mass/Time] 424 {ug/24_hr} Normal 131-612 [facility]; [facility] Work Phone: Comment on above: Test(s) 080115-Bqagq phrine, Urine; 933215-Oqhvkcpcxfaawx, Ur; 078811-Fkbjdlgj, Urine; 992036-Qrrultjlxtemcmb, Ur; 180646-Gotjvfoxtatm, Ur;910641-JRM, Urinewas developed and its performance characteristics determinedby [facility]. It has not been cleared or approved by the Foodand Drug Administration.PATIENT NOT FASTINGPERFORMED BY: [employer] [id number] Normetanephrine (24H U) [Mass/Vol] 326 ug/L Normal [facility]; [facility] Work Phone: Comment on above: Test(s) 855796-Pdbfx phrine, Urine; 102073-Lalnqfksiibogi, Ur; 062071-Ntachnhh, Urine; 263404-Fieflqamuvdhjnc, Ur; 406755-Ydzwsedbyxrc, Ur;628564-VCD, Urinewas developed and its performance characteristics determinedby [facility]. It has not been cleared or approved by the Foodand Drug Administration.PATIENT NOT FASTINGPERFORMED BY: [facility] [address] [id number] URINE VMA (60379)Ordered By: Database Marketing Manager on 09-30-2021 Vanillylmandelate (24H U) [Mass/Time] 4.4 {mg/24_hr} Normal 0.0-7.5 [facility]; [facility] Work Phone: Comment on above: Test(s) 925223-Lazrd phrine, Urine; 356866-Ezbpjtbqemrhjl, Ur; 500410-Yzobjooi, Urine; 501300-Fvcfizndxiowont, Ur; 941338-Ovkdenkfyhaa, Ur;769635-UHZ, Urinewas developed and its performance characteristics determinedby [employer]. It has not been cleared or approved by the Foodand Drug Administration.PATIENT NOT FASTINGPERFORMED BY: [employer] [address] [id number] Vanillylmandelate (U) [Mass/Vol] 3.4 mg/L Normal [facility]; [facility] Work Phone: Comment on above: Test(s) 949871-Ucltp phrine, Urine; 729024-Jbkxdajodnlcvj, Ur; 276871-Hczrvhbm, Urine; 953797-Dvpxquyejezcthh, Ur; 766730-Evonkzodneet, Ur;182500-MUY, Urinewas developed and its performance characteristics determinedby [facility]. It has not been cleared or approved by the Foodand Drug Administration.PATIENT NOT FASTINGPERFORMED BY: [employer] [address] [id number] Blood Glucose , Office (8296 2)Ordered By: Nelda Mallory on 09-26-2021 Glucose Glucometer (BldC) [Moles/Vol] 138 1 Normal [facility]; [facility] Work Phone: HgA1C , Office ([id number])Ordere d By: Nelda Mallory on 09-26-2021 HbA1c (Bld) [Mass fraction] 6.0 % Normal 4.6 - 7.1 [facility]; [facility] Work Phone: CBC W/AUTO DIFF WBC (79172)O rdered By: Database Marketing Manager on 09-18-2021 Basophils (Bld) [#/Vol] 0.1 10*3/uL Normal 0.0-0.2 [facility]; [facility] Work Phone: Comment on above: PATIENT WAS FASTINGP ERFORMED BY: CB [facility] Gqmqae5287 [address] RoadDublin [place] [id number] Basophils/100 WBC (Bld) 1 % Normal C omprehensive Internal Medicine; [facility] Work Phone: Comment on above: PATIENT WAS FASTINGP ERFORMED BY: CB [facility] Xsupum2551 [address] RoadDublin [place] [id number] Eosinophils (Bld) [#/Vol] 0.3 10*3/uL Normal 0.0-0.4 [facility]; [facility] Work Phone: Comment on above: PATIENT WAS FASTINGP ERFORMED BY: CB [facility] Yceenu0354 [address] RoadDublin [place] [id number] Eosinophils/100 WBC (Bld) 4 % Normal [facility]; [facility] Work Phone: Comment on above: PATIENT WAS FASTINGP ERFORMED BY: CB [facility] Jpctyk2595 [address] RoadDublin [place] [id number] Erythrocyte distribution width (RBC) [Ratio] 12.7 % Normal 11.7-15.4 Comprehensiv e Internal Medicine; [facility] Work Phone: Comment on above: PATIENT WAS FASTINGP ERFORMED BY: CB [facility] Stxrro4130 [address] RoadDublin [place] [id number] Hematocrit (Bld) [Volume fraction] 40.4 % Normal 34.0-46.6 [facility]; [facility] Work Phone: Comment on above: PATIENT WAS FASTINGP ERFORMED BY: CB [facility] Hhifai3641 [address] RoadDublin [place] [id number] Hemoglobin (Bld) [Mass/Vol] 13.5 g/dL Normal 11.1-15.9 [facility]; [facility] Work Phone: Comment on above: PATIENT WAS FASTINGP ERFORMED BY: CB [facility] Znumcy6450 [address] RoadDublin [place] [id number] Immature granulocytes (Bld) [#/Vol] 0.0 10*3/uL Normal 0.0-0.1 [facility]; [facility] Work Phone: Comment on above: PATIENT WAS FASTINGP ERFORMED BY: HALEIGH Darrinchu WarrenDgzwfs4396 OhlguinSummers County [facility] Hospitalin [place] [id number] Immature granulocytes/100 WBC (Bld) 0 % Normal [facility]; [facility] Work Phone: Comment on above: PATIENT WAS FASTINGP ERFORMED BY: HALEIGH Labchu WarrenRworgz7490 [facility] [id number] Lymphocytes (Bld) [#/Vol] 2.8 10*3/uL Normal 0.7-3.1 [facility]; [facility] Work Phone: Comment on above: PATIENT WAS FASTINGP ERFORMED BY: HALEIGH Warrenlin6370 [facility] [id number] Lymphocytes/100 WBC (Bld) 33 % Normal [facility]; [facility] Work Phone: Comment on above: PATIENT WAS FASTINGP ERFORMED BY: HALEIGH Warrenlin6370 [facility] [id number] MCH (RBC) [Entitic mass] 30.0 pg Normal 26.6-33.0 [facility]; [facility] Work Phone: Comment on above: PATIENT WAS FASTINGP ERFORMED BY: HALEIGH LabCore[facility]6370 [facility] [id number] MCHC (RBC) [Mass/Vol] 33.4 g/dL Normal 31.5-35.7 [facility] prehensive Internal Medicine; [facility] Work Phone: Comment on above: PATIENT WAS FASTINGP ERFORMED BY: HALEIGH Labchu Covjyd5501 [facility] [id number] MCV (RBC) [Entitic vol] 90 fL Normal 79-97 C omprehensive Internal Medicine; [facility] Work Phone: Comment on above: PATIENT WAS FASTINGP ERFORMED BY: HALEIGH Polina Dallas6[address]Dublin [place] [id number] Monocytes (Bld) [#/Vol] 0.8 10*3/uL Normal 0.1-0.9 [facility]; [facility] Work Phone: Comment on above: PATIENT WAS FASTINGP ERFORMED BY: HALEIGH Labchu WarrenTmcovh3039 [address]in RoadDublin [place] [id number] Monocytes/100 WBC (Bld) 10 % Normal C omprehensive Internal Medicine; [facility] Work Phone: Comment on above: PATIENT WAS FASTINGP ERFORMED BY: HALEIGH [facility] Gbqurd7779 [address] RoadDublin [place] [id number] Neutrophils (Bld) [#/Vol] 4.5 10*3/uL Normal 1.4-7.0 [facility]; [facility] Work Phone: Comment on above: PATIENT WAS FASTINGP ERFORMED BY: HALEIGH Polina [place]6[address]Dublin [place] [id number] Neutrophils/100 WBC (Bld) 52 % Normal [facility]; [facility] Work Phone: Comment on above: PATIENT WAS FASTINGP ERFORMED BY: HALEIGH Labchu Dallas6370 [address]Dublin [place] [id number] Platelets (Bld) [#/Vol] 260 10*3/uL Normal 150-450 [facility]; [facility] Work Phone: Comment on above: PATIENT WAS FASTINGP ERFORMED BY: [facility] Qujfcf2174 [address] RoadDublin [place] [id number] RBC (Bld) [#/Vol] 4.50 10*6/uL Normal 3.77-5.28 Compr ehensive Internal Medicine; [facility] Work Phone: Comment on above: PATIENT WAS FASTINGP ERFORMED BY: HALEIGH Labcoedgardo WarrenUjbmdh0979 [address] RoadDublin [place] [id number] WBC (Bld) [#/Vol] 8.5 10*3/uL Normal 3.4-10.8 Compre [facility]; [facility] Work Phone: Comment on above: PATIENT WAS FASTINGP ERFORMED BY: CB [facility] Ozssao4099 [address] RoadDublin [place] [id number] LIPID PANEL (16685)Ordered B y: Database Marketing Manager on 09-18-2021 Cholesterol [Mass/Vol] 172 mg/dL Normal 100-199 [facility]; [facility] Work Phone: Comment on above: PATIENT WAS FASTINGP ERFORMED BY: CB [facility] Vjfqhe7477 [address] RoadDublin [place] [id number] Cholesterol in HDL [Mass/Vol] 50 mg/dL Normal [facility]; [facility] Work Phone: Comment on above: PATIENT WAS FASTINGP ERFORMED BY: CB [facility] Pvrvoc3584 [address] RoadDublin [place] [id number] Triglyceride [Mass/Vol] 167 mg/dL Abnormal 0-149 C [facility] systemensive Internal [facility]; [facility] Work Phone: Comment on above: PATIENT WAS FASTINGP ERFORMED BY: CB [facility] Xmmaqu5919 [address] RoadDublin [place] [id number] LIPID PANEL (72138) 29 mg/dL Normal 5-40 Compr ensive Internal Medicine; [facility] Work Phone: Comment on above: PATIENT WAS FASTINGP ERFORMED BY: CB [facility] Glztap0065 [address] RoadDublin [place] [id number] LIPID PANEL (91334) 93 mg/dL Normal 0-99 Compr ensive Internal Medicine; [facility] Work Phone: Comment on above: PATIENT WAS FASTINGP ERFORMED BY: CB [facility] Nprmro4018 [address] RoadDublin [place] [id number] LIPID PANEL (16292) 1.9 {ratio} Normal 0.0-3.2 Comp [facility]ensive [facility]; [facility] Work Phone: Comment on above: LDL/HDL Ratio Men Wo men 1/2 Avg.Risk 1.0 1.5 Avg.Risk 3.6 3.2 2X Avg.Risk 6.2 5.0 3X Avg.Risk 8.0 6.1 PATIENT WAS FASTINGP ERFORMED BY: CB [facility] Gxnpjk0539 [address] RoadDublin [place] [id number] METABOLIC PANEL, COMPREHENSI VE (26032)Ordered By: Database Marketing Manager on 09-18-2021 Albumin [Mass/Vol] 4.0 g/dL Normal 3.6-4.6 [facility] Internal Medicine; [facility] Work Phone: Comment on above: PATIENT WAS FASTINGP ERFORMED BY: CB [facility] Xwyjhn8651 [address] RoadDublin [place] [id number] Albumin/Globulin [Mass ratio] 1.5 {ratio} Normal 1.2-2.2 [facility]; [facility] Work Phone: Comment on above: PATIENT WAS FASTINGP ERFORMED BY: CB [facility] Ggebds4525 [address] RoadDublin [place] [id number] ALP [Catalytic activity/Vol] 65 U/L Normal 44-121 [facility]; [facility] Work Phone: Comment on above: PATIENT WAS FASTINGP ERFORMED BY: CB [facility] Ffsppj0625 [address] RoadDublin [place] [id number] ALT [Catalytic activity/Vol] 19 U/L Normal 0-32 [facility]; [facility] Work Phone: Comment on above: PATIENT WAS FASTINGP ERFORMED BY: CB [facility] Zphdaf3436 [address] RoadDublin [place] [id number] AST [Catalytic activity/Vol] 19 U/L Normal 0-40 [facility]; [facility] Work Phone: Comment on above: PATIENT WAS FASTINGP ERFORMED BY: CB [facility] Kckjax8324 [address] RoadDublin [place] [id number] Bilirubin [Mass/Vol] 1.0 mg/dL Normal 0.0-1.2 [facility]; [facility] Work Phone: Comment on above: PATIENT WAS FASTINGP ERFORMED BY: CB [facility] Vhfylu7754 [address]Dublin [place] [id number] Calcium [Mass/Vol] 10.0 mg/dL Normal 8.7-10.3 Compre [facility] health[facility] Medicine; [facility] Work Phone: Comment on above: PATIENT WAS FASTINGP ERFORMED BY: HALEIGH Dallas6370 [facility] [id number] Chloride [Moles/Vol] 104 mmol/L Normal 96-106 Comp rehensive Internal Medicine; [facility] Work Phone: Comment on above: PATIENT WAS FASTINGP ERFORMED BY: French Tnydtv7877 [facility] [id number] CO2 [Moles/Vol] 23 mmol/L Normal 20-29 Comprehen [facility] Internal [facility]; [facility] Work Phone: Comment on above: PATIENT WAS FASTINGP ERFORMED BY: French Dzdkgq9818 [facility] [id number] Creatinine [Mass/Vol] 1.23 mg/dL Abnormal 0.57-1.00 Com prehensive Internal Medicine; [facility] Work Phone: Comment on above: PATIENT WAS FASTINGP ERFORMED BY: [facility] Gbhsgw7523 [facility] [id number] GFR/1.73 sq M.predicted among non-blacks MDRD (S/P/Bld) [Vol rate/Area] 43 mL/min/{1.73_m2} Abnormal Comprehensiv e Internal Medicine; [facility] Work Phone: Comment on above: In accordance with recommendations from the NKF-ASN Task force, [facility] has updated its eGFR calculation to the 2020 CKD-EPI creatinine equation that estimates kidney function without a race variable. PATIENT WAS FASTINGP ERFORMED BY: DarrinCorewell [facility]6370 [facility] [id number] Globulin (S) [Mass/Vol] 2.7 g/dL Normal 1.5-4.5 C omprehensive Internal Medicine; [facility] Work Phone: Comment on above: PATIENT WAS FASTINGP ERFORMED BY: [facility]insaint [facility] Jykjtp1157 [facility] [id number] Glucose [Mass/Vol] 118 mg/dL Abnormal 65-99 [facility] Internal Medicine; [facility] Work Phone: Comment on above: PATIENT WAS FASTINGP ERFORMED BY: HALEIGH Labcoedgardo Lbcsgz1096 [address] RoadDublin [place] [id number] Potassium [Moles/Vol] 4.9 mmol/L Normal 3.5-5.2 [facility] Internal Medicine; [facility] Work Phone: Comment on above: PATIENT WAS FASTINGP ERFORMED BY: HALEIGH [facility] Hhlqey8111 [address] RoadDublin [place] [id number] Protein [Mass/Vol] 6.7 g/dL Normal 6.0-8.5 [facility] Internal Medicine; [facility] Work Phone: Comment on above: PATIENT WAS FASTINGP ERFORMED BY: HALEIGH Labcoedgardo Kdqrbq1619 [address] RoadDublin [place] [id number] Sodium [Moles/Vol] 140 mmol/L Normal 134-144 [facility] Internal Medicine; [facility] Work Phone: Comment on above: PATIENT WAS FASTINGP ERFORMED BY: HALEIGH Labcoedgardo Ksnhkw7615 [address] RoadDublin [place] [id number] Urea nitrogen [Mass/Vol] 24 mg/dL Normal 8-27 [facility] Internal Medicine; [facility] Work Phone: Comment on above: PATIENT WAS FASTINGP ERFORMED BY: HALEIGH Labcoedgardo Qsavkr8320 [address]Dublin [place] [id number] Urea nitrogen/Creatinine [Mass ratio] 20 mg/mg Normal 12-28 [facility] Internal Medicine; [facility] Work Phone: Comment on above: PATIENT WAS FASTINGP ERFORMED BY: HALEIGH [facility] Nwxanu7006 [address] RoadDublin [place] [id number] MICROALBUMINOrdered By: Syst em Wind Development Director on 09-18-2021 Albumin DL <= 20 mg/L (U) [Mass/Vol] 32.8 ug/mL Normal [facility]; [facility] Work Phone: Comment on above: PATIENT WAS FASTINGP ERFORMED BY: HALEIGH [facility] Kqszaz3783 [address] RoadDublin [place] [id number] Albumin/Creatinine (U) [Mass ratio] 38 {mg/g_creat} Abnormal 0-29 [facility]; [facility] Work Phone: Comment on above: Normal: 0 - 29 Moder ately increased: 30 - 300 Severely increased: >300 PATIENT WAS FASTINGP ERFORMED BY: HALEIGH [facility] Bsgeji2172 [address]Dublin [place] [id number] Creatinine (U) [Mass/Vol] 85.8 mg/dL Normal [facility]; [facility] Work Phone: Comment on above: PATIENT WAS FASTINGP ERFORMED BY: HALEIGH [facility] Xlguzy6123 [address]Dublin [place] [id number] TSH ([id number])Ordered By: [employer] m Wind Development Director on 09-18-2021 TSH Qn 2.450 {uIU/mL} Normal 0.450-4.50 0 [facility]; [facility] Work Phone: Comment on above: PATIENT WAS FASTINGP ERFORMED BY: HALEIGH [facility] Vecozt8439 [address]Dublin [place] [id number] URINALYSIS, W/ MICRO (13102) Ordered By: Database Marketing Manager on 09-18-2021 Appearance (U) Cloudy Abnormal Comprehens melisa Internal Medicine; [facility] Work Phone: Comment on above: PATIENT WAS FASTINGP ERFORMED BY: HALEIGH Labcoedgardo Gegujk7511 [address]Dublin [place] [id number] Bilirubin Ql (U) Negative Normal Comprehe nsive Internal Medicine; [facility] Work Phone: Comment on above: PATIENT WAS FASTINGP ERFORMED BY: HALEIGH [facility] Jicors9446 [address]Dublin [place] [id number] Color (U) Yellow Normal [facility]; [facility] Work Phone: Comment on above: PATIENT WAS FASTINGP ERFORMED BY: HALEIGH [facility] Mjiupy7872 [address]Dublin [place] [id number] Glucose Ql (U) Negative Normal Comprehens melisa Internal Medicine; [facility] Work Phone: Comment on above: PATIENT WAS FASTINGP ERFORMED BY: HALEIGH Dallas6[address] RoadDublin [place] [id number] Hemoglobin Ql (U) Negative Normal Compreh ensive Internal Medicine; [facility] Work Phone: Comment on above: PATIENT WAS FASTINGP ERFORMED BY: HALEIGH Dallas[address] RoadDublin [place] [id number] Ketones Ql (U) Negative Normal Comprehens melisa Internal Medicine; [facility] Work Phone: Comment on above: PATIENT WAS FASTINGP ERFORMED BY: HALEIGH Dallas[address] RoadDublin [place] [id number] Leukocyte esterase Test strip Ql (U) 1+ Abnormal [facility]; [facility] Work Phone: Comment on above: PATIENT WAS FASTINGP ERFORMED BY: HALEIGH Warrenlin[address] [facility] CenterDublin [place] [id number] Microscopic observation LM Nom (Urine sed) See below: Normal [facility]; [facility] Work Phone: Comment on above: Microscopic was berry cated and was performed. PATIENT WAS FASTINGP ERFORMED BY: HALEIGH Warrenlin[address]Dublin [place] [id number] Nitrite Ql (U) Negative Normal Comprehens melisa [facility]; [facility] Work Phone: Comment on above: PATIENT WAS FASTINGP ERFORMED BY: HALEIGH Warrenlin[address]Dublin [place] [id number] pH (U) 6.5 [pH] Normal 5.0-7.5 [facility]; [facility] Work Phone: Comment on above: PATIENT WAS FASTINGP ERFORMED BY: HALEIGH Labchu WarrenOuxuvf3294 [address]guin RoadDublin [place] [id number] Protein Ql (U) Negative Normal Comprehens melisa [facility]; [facility] Work Phone: Comment on above: PATIENT WAS FASTINGP ERFORMED BY: HALEIGH Warrenlin[address]Dublin [place] [id number] Specific gravity (U) [Rel density] 1.018 1 Normal 1.005-1.03 0 [facility]; [facility] Work Phone: Comment on above: PATIENT WAS FASTINGP ERFORMED BY: [employer] Lkyest6912 [facility] [id number] Urobilinogen (U) [Mass/Vol] 0.2 mg/dL Normal 0.2-1.0 [facility]; [facility] Work Phone: Comment on above: PATIENT WAS FASTINGP ERFORMED BY: [employer] Vhzryx2199 [facility] [id number] Absolute lymphocyte counton 08-10-2021 Lymphocytes Auto (Unsp spec) [#/Vol] 3.17 10*3/uL 0.83-4.51 [facility] Work Phone: Basophil percentageon 2021 Basophil percentage 5-10 SEEN /hpf [facility] Work Phone: Basophils/100 WBC (Bld) 0.7 % 0-1 [facility] Work Phone: Bilirubin [Mass/Vol] 1.00 mg/dL 0.20-1.00 [facility] Work Phone: Comment on above: For patients on eltr ombopag therapy, use of Dimension [place] TBIL is not recommended. Chloride [Moles/Vol] 110 mmol/L 98-107 [facility] Work Phone: Eosinophils/100 WBC (Bld) 3.3 % 0-5 [facility] Work Phone: Glucose [Mass/Vol] 99 mg/dL 74-106 [facility] Work Phone: Neutrophils (Bld) [#/Vol] 5.2 10*3/uL 2.0-7.7 [facility] Work Phone: Neutrophils/100 WBC (Bld) 53.5 % 47-70 [facility] Work Phone: Potassium [Moles/Vol] 4.2 mmol/L 3.5-5.1 [facility] [place] [place] Work Phone: Protein [Mass/Vol] 7.1 g/dL 6.4-8.2 [facility] Work Phone: Sodium [Moles/Vol] 142 mmol/L 136-145 [facility] Work Phone: WBC (Bld) [#/Vol] 9.7 10*3/uL 4.4-11.0 [facility] Work Phone: Bilirubin Test strip Ql (U)o n 08-10-2021 Bilirubin Ql (U) Negative Negative [facility] Work Phone: Blood erythrocytes count (nu mber/volume)on 08-10-2021 RBC (Bld) [#/Vol] 4.19 10*6/uL 4.2-5.4 [facility] Work Phone: Blood hemoglobin measurement (mass/volume)on 08-10-2021 Hemoglobin (Bld) [Mass/Vol] 13.0 g/dL 12.0-15.0 [facility] Work Phone: Blood lymphocytes/100 leukoc yteson 08-10-2021 Lymphocytes/100 WBC (Bld) 32.6 % 19-41 [facility] Work Phone: Blood monocytes/100 leukocyt eson 08-10-2021 Monocytes/100 WBC (Bld) 9.6 % 0-10 [facility] Work Phone: Blood platelet mean volumeon 08-10-2021 Platelet mean volume (Bld) [Entitic vol] 10.5 fL 6.2-12.0 [facility] Work Phone: Determination of erythrocyte mean corpuscular volume (MCV)on 08-10-2021 MCV (RBC) [Entitic vol] 93.6 fL 81-99 [facility] Work Phone: Hematocrit Auto (Bld) [Volum e fraction]on 08-10-2021 Hematocrit (Bld) [Volume fraction] 39.2 % 37-47 [facility] Work Phone: Ketones Test strip Ql (U)on 08-10-2021 Ketones Ql (U) Negative Negative [facility] Work Phone: Laboratory - Chemistry and C hemistry - challengeon 08-10-2021 ALP [Catalytic activity/Vol] 59 U/L 45-117 [facility] Work Phone: ALT [Catalytic activity/Vol] 29 U/L 13-56 [facility] Work Phone: CO2 [Moles/Vol] 29.0 mmol/L 21.0-32.0 [facility] Work Phone: Globulin (S) [Mass/Vol] 3.9 g/dL 2.2-4.2 [facility] Work Phone: Urea nitrogen/Creatinine [Mass ratio] 29.2 mg/mg 10-20 [facility] Work Phone: Laboratory - Hematology and Cell countson 08-10-2021 Erythrocyte distribution width (RBC) [Entitic vol] 45.9 fL 35.1-43.9 [facility] Work Phone: Erythrocyte distribution width (RBC) [Ratio] 13.5 % 11.6-14.6 [facility] Work Phone: Immature granulocytes/100 WBC (Bld) 0.300 % 0.0-0.9 [facility] Work Phone: Comment on above: IG% - Immature Granu locytes (promyelocytes, myelocytes and metamyelocytes) > 1% indicates that a LEFT SHIFT is Present. MCH (RBC) [Entitic mass] 31.0 pg 27.0-32.0 [facility] Work Phone: Nucleated RBC/100 WBC (Bld) [Ratio] 0 % 0-5 [facility] Work Phone: MCHC Auto (RBC) [Mass/Vol]on 08-10-2021 MCHC (RBC) [Mass/Vol] 33.2 g/dL 32-36 [facility] Work Phone: Mucus LM Ql (Urine sed)on Mucus Ql (Urine sed) 0 SEEN /hpf [facility] Work Phone: Nitrite Test strip Ql (U)on 08-10-2021 Nitrite Ql (U) Negative Negative [facility] Work Phone: No Panel Informationon 08-10 Estimated GFR (MDRD) Amer 50 mL/min >60 [facility] Work Phone: Comment on above: GFR Calc Estimated GFR (MDRD) Non-Af Amer 41 mL/min >60 [facility] Work Phone: Comment on above: Non- GFR Calc Troponin I High Sensitivity 11 pg/mL 3.0-54.0 [facility] Work Phone: Comment on above: Please Note: New Sue t Units and Gender Specific Reference Ranges. For more information see Policy Stat Procedure [place] High Sensitivity Troponin (TNIH) and attachments. Platelets bldon 08-10-2021 Platelets (Bld) [#/Vol] 250 10*3/uL 150-450 [facility] Work Phone: Protein Test strip Ql (U)on 08-10-2021 Protein Ql (U) Negative Negative [facility] Work Phone: Serum or plasma albumin brian urement (mass/volume)on 08-10-2021 Albumin [Mass/Vol] 3.2 g/dL 3.2-5.0 [facility] Work Phone: Serum or plasma albumin/glob ulin mass ratioon 08-10-2021 Albumin/Globulin [Mass ratio] 0.8 {ratio} 0.9-2.4 [facility] Work Phone: Serum or plasma calcium brian urement (mass/volume)on 08-10-2021 Calcium [Mass/Vol] 10.1 mg/dL 8.5-10.1 [facility] Work Phone: Serum or plasma creatinine m easurement (mass/volume)on 08-10-2021 Creatinine [Mass/Vol] 1.30 mg/dL 0.55-1.02 [facility] Work Phone: Comment on above: The validity of the calculated GFR & GFRAA in patients over 70 years has not been determined. Clinical correlation is essential. Serum or plasma urea nitroge n measurement (mass/volume)on 08-10-2021 Urea nitrogen [Mass/Vol] 38 mg/dL 7-18 [facility] Work Phone: Squamous epithelial cells de tection in urine sediment by light microscopyon 08-10-2021 Epithelial cells.squamous LM Ql (Urine sed) 5-10 SEEN /hpf [facility] Work Phone: Thin prep Papanicolaou smear with manual screeningon 08-10-2021 Thin prep Papanicolaou smear with manual screening 13 U/L 15-37 [facility] Work Phone: Thin prep Papanicolaou smear with manual screening 3 5-15 [facility] Work Phone: Urine blood detectionon 07-22 RBC Ql (U) Negative Negative [facility] Work Phone: RBC Ql (U) 0 SEEN /hpf [facility] Work Phone: Urine clarityon 08-10-2021 Clarity (U) Clear Clear [facility] Work Phone: Urine color determinationon 08-10-2021 Color (U) Yellow Yellow [facility] Work Phone: Urine glucose detectionon Glucose Ql (U) Normal mg/dl Normal [facility] Work Phone: Urine leukocyte esterase det ection by dipstickon 08-10-2021 Leukocyte esterase Test strip Ql (U) 25 /ul Negative [facility] Work Phone: Urine pHon 08-10-2021 pH (U) 6.0 [pH] [facility] Work Phone: Urine sediment bacteria coun t by microscopy (number/high power field)on 08-10-2021 Bacteria LM.HPF (Urine sed) [#/Area] 0 /[HPF] None Seen [facility] Work Phone: Urine specific gravity measu rementon 08-10-2021 Specific gravity (U) [Rel density] 1.020 [facility] Work Phone: Urobilinogen Auto test strip Ql (U)on 08-10-2021 Urobilinogen Ql (U) Normal mg/dl Normal [facility] Work Phone: OBSOLETEon 06-04-2021 OBSOLETE Refill (FAMPWS) DEBBIE MIRELES ([id number]) 1935 F Date Time Provider Department 06/04/21 PHILIP KUMAR During your visit today, we recorded the following information about you: Emi Garcia 06/04/2021 12:39 PM Addendum Patient has been identified by name and date of : Yes Pending Prescriptions Disp Refills METOPROLOL SUCCINATE ER 50 MG TABLET,EXTENDED RELEASE 24 HR 90 tablet 3 Sig: Take 1 tablet by mouth once daily. SAGE: No ERMA-08/24/20 Labs-04/10/20 NOV-none RX INSTRUCTIONS: Pharmacy initiated this request. No need to notify patient. Emi Kumar MD 06/04/2021 1:45 PM Signed Due for follow up Shannon Sandoval Pss 06/07/2021 4:20 PM Signed 1st attempt. 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 Shannon Sandoval Pss 06/08/2021 10:04 AM Signed Patient called stating she changed primary care doctors. Pharmacy called this order in in error. Allergies As of Date: 06/04/2021 Noted Allergy Reaction DEMEROL (MEPERIDINE (PF)) 07/11/2005 1 - Mental Status Change LEVAQUIN (LEVOFLOXACIN) 08/11/2014 8 - GI Upset MORPHINE 01/28/2018 11 - Vomiting Date Reviewed: 12/14/2019 Reviewed by: Shannon Magallanes Ma - Fully Assessed Reason for Visit: Refill Request [94] Visit Diagnosis:Essential hypertension, benign [I10] Order(s):metoprolol succinate ER (TOPROL XL) 50 mg 24 hr tabletTake 1 tablet by mouth once daily.Disp: 90 tabletRfl: 0 Prescriptions as of 06/08/2021 - metoprolol succinate ER (TOPROL XL) 50 mg 24 hr tablet Take 1 tablet by mouth once daily. - nateglinide (STARLIX) 60 mg tablet Take 1 tablet by mouth three times daily before meals. - cyclobenzaprine (FLEXERIL) 10 mg tablet Take 0.5 tablets by mouth three times daily as needed for Muscle Spasm. - nystatin (MYCOSTATIN) 100,000 unit/mL suspension Take 5 mL by mouth four times daily. 1tsp swish in mouth for several minutes, then swallow (or expectorate) 4 times daily until gone. - lisinopril (ZESTRIL, PRINIVIL) 20 mg tablet Take 1 tablet by mouth once daily. - MAGNESIUM ORAL Take by mouth. - COMPOUNDED PRESCRIPTION Artery Cleanse - COMPOUNDED PRESCRIPTION Cardio [place] Healthy heart/arteries - OMEGA 8-RVB-AHA-OTHER OM3-D3 ORAL Take by mouth. - aspirin, enteric coated (ASPIRIN, ENTERIC COATED) 81 mg EC tablet Take 81 mg by mouth every other day. - Cinnamon Bark (CINNAMON) 500 mg ORAL Cap Take 1 capsule by mouth once daily. - ascorbic acid (VITAMIN C) 500 mg ORAL tablet Take 1 tablet by mouth once daily. - calcium-vitamin D 500 mg(1,250mg) -200 unit ORAL per tablet Take one(1) tablet daily. - cimetidine(TAGAMET 300 MG TAB) Take one(1) tablet daily. - XALATAN 0.005 % EYE DROPS one drop both eyes q hs Problem List As Of Date 06/04/2021 Noted Resolved DERMATOPHYTOSIS OF NAIL [B35.1] 05/30/2005 LUMBAGO [M54.50] PERS HX COLONIC POLYPS [Z86.010] DIVERTICULOSIS OF COLON W/O BLEED [K57.30] Unspecified hemorrhoids without mention of comp* 03/14/2016 BENIGN HYPERTENSION [I10] 07/31/2007 CEREBR ART OCCL UNSPEC W INFARCT [I63.50] 07/31/2007 Mixed hyperlipidemia [E78.2] 08/03/2007 Impaired fasting glucose [R73.01] 09/01/2008 11/22/2014 Onychia and paronychia of toe [L03.039] 08/17/2010 09/26/2016 Ingrowing nail [L60.0] 09/07/2010 09/26/2016 Benign paroxysmal positional vertigo [H81.10] 10/17/2011 Dizziness [R42] 10/17/2011 09/26/2016 Neuropathy [G62.9] 02/12/2013 Diabetes mellitus (HCC) [E11.9] 12/09/2013 02/08/2014 Family history of colon cancer [Z80.0] 12/09/2013 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 04/12/2020 Carotid arterial disease (HCC) [I77.9] 07/07/2014 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] 02/08/2015 08/16/2019 Pain in right hip [M25.551] 02/08/2015 08/16/2019 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] 02/08/2015 Pain in right knee [M25.561] 02/08/2015 08/16/2019 Abnormal mammogram [R92.8] 08/01/2016 Candidiasis of skin and nail [B37.2] 08/01/2016 04/17/2017 Pancreatic cyst [K86.2] 04/17/2017 CKD (chronic kidney disease) stage 1, GFR 90 ml*04/17/2017 08/12/2017 Chronic renal insufficiency, stage 3 (moderate)*08/12/2017 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 Medications Discontinued During This Encounter Prescriptions - metoprolol succinate ER (TOPROL XL) 50 mg 24 hr tablet (Discontinued) Take 1 tablet by mouth once daily. Encounter Status:Closed by PUSHPA PRICE LPN on 06/08/21 Normal [facility] LIPID PANEL (00181)Ordered B y: Database Marketing Manager on 05-18-2021 Cholesterol [Mass/Vol] 143 mg/dL Normal 100-199 [facility]; [facility] Work Phone: Comment on above: PATIENT WAS FASTINGP ERFORMED BY: CB [facility] Xphwof[address] ConductorDublin [place] [id number] Cholesterol in HDL [Mass/Vol] 48 mg/dL Normal [facility]; [facility] Work Phone: Comment on above: PATIENT WAS FASTINGP ERFORMED BY: CB [facility] Aoeexz[address] Connected Datablin [place] [id number] Triglyceride [Mass/Vol] 126 mg/dL Normal 0-149 C omprehensive Internal Medicine; [facility] Work Phone: Comment on above: PATIENT WAS FASTINGP ERFORMED BY: CB [facility] Lvbujz9380 [address] Conductorblin [place] [id number] LIPID PANEL (14263) 22 mg/dL Normal 5-40 Compr ehensive Internal Medicine; [facility] Work Phone: Comment on above: PATIENT WAS FASTINGP ERFORMED BY: CB [facility] Uhjtih4134 [address] RoadDublin [place] [id number] LIPID PANEL (52754) 73 mg/dL Normal 0-99 Compr ehensive Internal Medicine; [facility] Work Phone: Comment on above: PATIENT WAS FASTINGP ERFORMED BY: CB [facility] Lizloo9139 [address] RoadDublin [place] [id number] LIPID PANEL (54764) 1.5 {ratio} Normal 0.0-3.2 Comp [facility]; [facility] Work Phone: Comment on above: LDL/HDL Ratio Men Wo men 1/2 Avg.Risk 1.0 1.5 Avg.Risk 3.6 3.2 2X Avg.Risk 6.2 5.0 3X Avg.Risk 8.0 6.1 PATIENT WAS FASTINGP ERFORMED BY: CB [facility] Mdjmxq3659 Holguin RoadDublin [place] [id number] Metabolic Panel, Comprehensi ve (10884)Ordered By: Database Marketing Manager on 05-18-2021 Albumin [Mass/Vol] 4.1 g/dL Normal 3.6-4.6 [facility] Internal Medicine; [facility] Work Phone: Comment on above: PATIENT WAS FASTINGP ERFORMED BY: CB [facility] Ztuqfg0674 [address] RoadDublin [place] [id number] Albumin/Globulin [Mass ratio] 1.8 {ratio} Normal 1.2-2.2 [facility]; [facility] Work Phone: Comment on above: PATIENT WAS FASTINGP ERFORMED BY: CB [facility] Fygflx9407 [address] RoadDublin [place] [id number] ALP [Catalytic activity/Vol] 67 U/L Normal 44-121 [facility]; [facility] Work Phone: Comment on above: Please note refere nce interval change PATIENT WAS FASTINGP ERFORMED BY: CB [facility] Ammknz6438 [address] RoadDublin [place] [id number] ALT [Catalytic activity/Vol] 15 U/L Normal 0-32 [facility]; [facility] Work Phone: Comment on above: PATIENT WAS FASTINGP ERFORMED BY: CB [facility] Izlukt0952 [address] RoadDublin [place] [id number] AST [Catalytic activity/Vol] 16 U/L Normal 0-40 [facility]; [facility] Work Phone: Comment on above: PATIENT WAS FASTINGP ERFORMED BY: CB [facility] Bkucrd4301 [address] RoadDublin [place] [id number] Bilirubin [Mass/Vol] 1.0 mg/dL Normal 0.0-1.2 [facility] Internal [facility]; [facility] Work Phone: Comment on above: PATIENT WAS FASTINGP ERFORMED BY: CB [facility] Mfaciq5698 [address] RoadDublin [place] [id number] Calcium [Mass/Vol] 9.8 mg/dL Normal 8.7-10.3 [facility]; [facility] Work Phone: Comment on above: PATIENT WAS FASTINGP ERFORMED BY: HALEIGH Dallas6370 HolguinGeneral [facility] [id number] Chloride [Moles/Vol] 103 mmol/L Normal 96-106 Comp rehensive Internal Medicine; [facility] Work Phone: Comment on above: PATIENT WAS FASTINGP ERFORMED BY: HALEIGH Warrenlin6370 [facility] [id number] CO2 [Moles/Vol] 23 mmol/L Normal 20-29 [facility]; [facility] Work Phone: Comment on above: PATIENT WAS FASTINGP ERFORMED BY: Polina Dallas6370 [facility] [id number] Creatinine [Mass/Vol] 1.15 mg/dL Abnormal 0.57-1.00 Com prehensive Internal Medicine; [facility] Work Phone: Comment on above: PATIENT WAS FASTINGP ERFORMED BY: French Yfshny2721 [facility] [id number] GFR/1.73 sq M.predicted among blacks CKD-EPI (S/P/Bld) [Vol rate/Area] 50 mL/min/1.73 Abnormal [facility]; [facility] Work Phone: Comment on above: In accordance with recommendations from the NKF-ASN Task force, [facility] is in the process of updating its eGFR calculation to the 2020 CKD-EPI creatinine equation that estimates kidney function without a race variable. PATIENT WAS FASTINGP ERFORMED BY: French Ohythu5492 [facility] [id number] GFR/1.73 sq M.predicted among non-blacks CKD-EPI (S/P/Bld) [Vol rate/Area] 44 mL/min/1.73 Abnormal [facility]; [facility] Work Phone: Comment on above: PATIENT WAS FASTINGP ERFORMED BY: French Tcozob0608 [facility] [id number] Globulin (S) [Mass/Vol] 2.3 g/dL Normal 1.5-4.5 C [facility]erens[facility] Internal [facility]; [facility] Work Phone: Comment on above: PATIENT WAS FASTINGP ERFORMED BY: HALEIGH DarrinChu WarrenPoyihn5239 [facility] [id number] Glucose [Mass/Vol] 103 mg/dL Abnormal 65-99 [facility] healthive [facility]; [facility] Work Phone: Comment on above: PATIENT WAS FASTINGP ERFORMED BY: HALEIGH [facility] Oipetp1676 [facility] [id number] Potassium [Moles/Vol] 4.8 mmol/L Normal 3.5-5.2 [facility]; [facility] Work Phone: Comment on above: PATIENT WAS FASTINGP ERFORMED BY: HALEIGH CliffordP[facility] Bpdexi7511 [facility] [id number] Protein [Mass/Vol] 6.4 g/dL Normal 6.0-8.5 [facility] Internal Medicine; [facility] Work Phone: Comment on above: PATIENT WAS FASTINGP ERFORMED BY: HALEIGH Braswell Seztjy1408 [facility] [id number] Sodium [Moles/Vol] 140 mmol/L Normal 134-144 [facility]; [facility] Work Phone: Comment on above: PATIENT WAS FASTINGP ERFORMED BY: HALEIGH [facility] Ylvzfw4174 [facility] [id number] Urea nitrogen [Mass/Vol] 21 mg/dL Normal 8-27 [facility]; [facility] Work Phone: Comment on above: PATIENT WAS FASTINGP ERFORMED BY: HALEIGH DarrinMj Pthzxv7719 [facility] [id number] Urea nitrogen/Creatinine [Mass ratio] 18 mg/mg Normal 12-28 [facility]; [facility] Work Phone: Comment on above: PATIENT WAS FASTINGP ERFORMED BY: HALEIGH Braswellrp Fnwnha[address]75 [address] Connected DataAtrium Health Huntersville [id number] Blood Glucose , Office ([phone])Ordered By: Steffany Oh on 03-20-2021 Glucose Glucometer (BldC) [Moles/Vol] 103 1 Normal [facility]; [facility] Work Phone: HgA1C , Office ([phone])Ordere d By: Steffany Oh on 03-20-2021 HbA1c (Bld) [Mass fraction] 5.5 % Normal 4.6 - 7.1 [facility]; [facility] Work Phone: Blood Glucose , Office ([phone])Ordered By: Turner Balderas on 12-13-2020 Glucose Glucometer (BldC) [Moles/Vol] 113 1 Normal [facility]; [facility] Work Phone: HgA1C , Office ([phone])Ordere d By: Turner Balderas on 12-13-2020 HbA1c (Bld) [Mass fraction] 5.8 % Normal 4.6 - 7.1 [facility]; [facility] Work Phone: LIPID PANEL (59461)Ordered B y: Database Marketing Manager on 12-05-2020 Cholesterol [Mass/Vol] 228 mg/dL Abnormal 100-199 Co mprehensive Internal Medicine; [facility] Work Phone: Comment on above: PATIENT WAS FASTINGP ERFORMED BY: HALEIGH LabAquapdesignsrp [id number] [address] ConductorUNC Health Lenoir [id number] Cholesterol in HDL [Mass/Vol] 45 mg/dL Normal [facility]; [facility] Work Phone: Comment on above: PATIENT WAS FASTINGP ERFORMED BY: HALEIGH [facility] Ixumww2130 [facility] [id number] Triglyceride [Mass/Vol] 193 mg/dL Abnormal 0-149 C omprehensive Internal Medicine; [facility] Work Phone: Comment on above: PATIENT WAS FASTINGP ERFORMED BY: HALEIGH [facility] Hxedcj4432 [facility] [id number] LIPID PANEL (11048) 35 mg/dL Normal 5-40 Compr ehensive Internal Medicine; [facility] Work Phone: Comment on above: PATIENT WAS FASTINGP ERFORMED BY: HALEIGH LabChu WarrenGfrsmp[address] [facility] Hospitalbl[facility] [place] [id number] LIPID PANEL (67210) 148 mg/dL Abnormal 0-99 [facility] Internal Medicine; [facility] Work Phone: Comment on above: PATIENT WAS FASTINGP ERFORMED BY: HALEIGH LabMj [id number] [address] [facility] [id number] LIPID PANEL (16259) 3.3 {ratio} Abnormal 0.0-3.2 [facility] Medicine; [facility] Work Phone: Comment on above: LDL/HDL Ratio Men Wo men 1/2 Avg.Risk 1.0 1.5 Avg.Risk 3.6 3.2 2X Avg.Risk 6.2 5.0 3X Avg.Risk 8.0 6.1 PATIENT WAS FASTINGP ERFORMED BY: HALEIGH [facility] Ohwqjn8172 [facility] [id number] RENAL FUNCTION PANEL ([id number]) Ordered By: Database Marketing Manager on 12-05-2020 Albumin [Mass/Vol] 4.1 g/dL Normal 3.6-4.6 [facility] Internal Medicine; [facility] Work Phone: Comment on above: PATIENT WAS FASTINGP ERFORMED BY: HALEIGH [facility]Co Pwqtcg2153 [facility] [id number] Calcium [Mass/Vol] 10.0 mg/dL Normal 8.7-10.3 [facility] Internal Medicine; [facility] Work Phone: Comment on above: PATIENT WAS FASTINGP ERFORMED BY: [facility] Nysdbz9038 [address] [facility] CenterD[facility] [place] [id number] Chloride [Moles/Vol] 105 mmol/L Normal 96-106 [facility] Internal Medicine; [facility] Work Phone: Comment on above: PATIENT WAS FASTINGP ERFORMED BY: HALEIGH [facility] Vvyfpa[address] [facility] [place] [id number] CO2 [Moles/Vol] 24 mmol/L Normal 20-29 [facility] Internal Medicine; [facility] Work Phone: Comment on above: PATIENT WAS FASTINGP ERFORMED BY: [facility] Tmjxus2566 [address] [facility] [id number] Creatinine [Mass/Vol] 1.21 mg/dL Abnormal 0.57-1.00 [facility]; [facility] Work Phone: Comment on above: PATIENT WAS FASTINGP ERFORMED BY: [facility] Vqnhit7402 [address] [facility] [id number] GFR/1.73 sq M.predicted among blacks CKD-EPI (S/P/Bld) [Vol rate/Area] 47 mL/min/1.73 Abnormal [facility]; [facility] Work Phone: Comment on above: [facility] currently reports eGFR in compliance with the current recommendations of the National Kidney Foundation. Labsaint [facility] will update reporting as new guidelines are published from the NKF-ASN Task force. PATIENT WAS FASTINGP ERFORMED BY: [facility] Xctsxj7957 [facility] [id number] GFR/1.73 sq M.predicted among non-blacks CKD-EPI (S/P/Bld) [Vol rate/Area] 41 mL/min/1.73 Abnormal [facility]; [facility] Work Phone: Comment on above: PATIENT WAS FASTINGP ERFORMED BY: [facility] Wnqoad0247 [address] [facility] [id number] Glucose [Mass/Vol] 113 mg/dL Abnormal 65-99 [facility] Internal Medicine; [facility] Work Phone: Comment on above: PATIENT WAS FASTINGP ERFORMED BY: [facility] Euvuxd1181 [address] [facility] [id number] Phosphate [Mass/Vol] 2.8 mg/dL Abnormal 3.0-4.3 [facility]; [facility] Work Phone: Comment on above: PATIENT WAS FASTINGP ERFORMED BY: [facility] Milhyy3361 [address] [facility] [id number] Potassium [Moles/Vol] 5.1 mmol/L Normal 3.5-5.2 [facility] prehensive Internal Medicine; [facility] Work Phone: Comment on above: PATIENT WAS FASTINGP ERFORMED BY: CB [facility] Ribbfs9666 [address] RoadDublin [place] [id number] Sodium [Moles/Vol] 141 mmol/L Normal 134-144 [facility] Internal Medicine; [facility] Work Phone: Comment on above: PATIENT WAS FASTINGP ERFORMED BY: CB [facility] Fncbse7050 [address] RoadDublin [place] [id number] Urea nitrogen [Mass/Vol] 21 mg/dL Normal 8-27 [facility]; [facility] Work Phone: Comment on above: PATIENT WAS FASTINGP ERFORMED BY: CB [facility] Jknnqb7016 [address] RoadDublin [place] [id number] Urea nitrogen/Creatinine [Mass ratio] 17 mg/mg Normal 12-28 [facility]; [facility] Work Phone: Comment on above: PATIENT WAS FASTINGP ERFORMED BY: CB [facility] Nwiggo6978 [address] RoadDublin [place] [id number] Blood Glucose , Office ([phone])Ordered By: Turner Balderas on 09-15-2020 Glucose Glucometer (BldC) [Moles/Vol] 163 1 Normal [facility]; [facility] Work Phone: CALCIFEDIOL ([phone])Ordered B y: Database Marketing Manager on 09-15-2020 25-Hydroxyvitamin D2+25-Hydroxyvitamin D3 [Mass/Vol] 60.2 ng/mL Normal 30.0-100.0 [facility]; [facility] Work Phone: Comment on above: Vitamin D deficiency has been defined by the [place] of[place]icine and an Endocrine Society practice guideline as alevel of serum 25-OH vitamin D less than 20 ng/mL (1,2).The Endocrine Society went on to further define vitamin Dinsufficiency as a level between 21 and 29 ng/mL (2).1. IOM ([place] of Medicine). 2010. Dietary reference intakes for calcium and D. [place]: The National Academies Press.2. [place]ina MF, [place], Bharathi GLOVER, et al. Evaluation, treatment, and prevention of vitamin D deficiency: an Endocrine Society clinical practice guideline. JCEM. 2010; 96():1911-30. PATIENT NOT FASTINGP ERFORMED BY: CB [facility] Anayvw9175 [address] RoadDublin [place] [id number] CBC, Platelets & Auto Diff ( [id number])Ordered By: Database Marketing Manager on 09-15-2020 Basophils (Bld) [#/Vol] 0.1 {x10E3/uL} Normal 0.0-0.2 [facility]; [facility] Work Phone: Comment on above: PATIENT NOT FASTINGP ERFORMED BY: CB [facility] Embafp6174 [address] RoadDublin [place] [id number] Basophils (Bld) [#/Vol] 0.1 10*3/uL Normal 0.0-0.2 [facility]; [facility] Work Phone: Comment on above: PATIENT NOT FASTINGP ERFORMED BY: CB [facility] Hhywos9146 [address] RoadDublin [place] [id number] Basophils/100 WBC (Bld) 1 % Normal C omprehensive Internal Medicine; [facility] Work Phone: Comment on above: PATIENT NOT FASTINGP ERFORMED BY: CB [facility] Ybajai9548 [address] RoadDublin [place] [id number] Eosinophils (Bld) [#/Vol] 0.3 {x10E3/uL} Normal 0.0-0.4 [facility]; [facility] Work Phone: Comment on above: PATIENT NOT FASTINGP ERFORMED BY: CB [facility] Cydukp1737 [address] RoadDublin [place] [id number] Eosinophils (Bld) [#/Vol] 0.3 10*3/uL Normal 0.0-0.4 [facility]; [facility] Work Phone: Comment on above: PATIENT NOT FASTINGP ERFORMED BY: CB [facility] Mwpxik2620 [address] RoadDublin [place] [id number] Eosinophils/100 WBC (Bld) 3 % Normal [facility]; [facility] Work Phone: Comment on above: PATIENT NOT FASTINGP ERFORMED BY: HALEIGH Dallas6370 Chelsie FloresAtrium Health Huntersville [id number] Erythrocyte distribution width (RBC) [Ratio] 12.8 % Normal 11.7-15.4 Comprehensiv e Internal Medicine; [facility] Work Phone: Comment on above: PATIENT NOT FASTINGP ERFORMED BY: HALEIGH CliffordCoedgardo DallasGpilim9773 [address] [facility] [id number] Hematocrit (Bld) [Volume fraction] 39.0 % Normal 34.0-46.6 [facility]; [facility] Work Phone: Comment on above: PATIENT NOT FASTINGP ERFORMED BY: HALEIGH [place]6370 [facility] [id number] Hemoglobin (Bld) [Mass/Vol] 13.5 g/dL Normal 11.1-15.9 [facility]; [facility] Work Phone: Comment on above: PATIENT NOT FASTINGP ERFORMED BY: HALEIGH [place]6[address] RajniUNC Health Lenoir [id number] Immature granulocytes (Bld) [#/Vol] 0.0 {x10E3/uL} Normal 0.0-0.1 [facility]; [facility] Work Phone: Comment on above: PATIENT NOT FASTINGP ERFORMED BY: HALEIGH [place]6370 [address] [facility] [id number] Immature granulocytes (Bld) [#/Vol] 0.0 10*3/uL Normal 0.0-0.1 [facility]; [facility] Work Phone: Comment on above: PATIENT NOT FASTINGP ERFORMED BY: HALEIGH [place]6370 [address] [facility] [id number] Immature granulocytes/100 WBC (Bld) 0 % Normal [facility]; [facility] Work Phone: Comment on above: PATIENT NOT FASTINGP ERFORMED BY: [facility] Ieozgm9381 [address] [facility] [place] [id number] Lymphocytes (Bld) [#/Vol] 2.4 {x10E3/uL} Normal 0.7-3.1 [facility]; [facility] Work Phone: Comment on above: PATIENT NOT FASTINGP ERFORMED BY: LabCoEast Mountain HospitalBftwtj9487 [address] [facility]in [place] [id number] Lymphocytes (Bld) [#/Vol] 2.4 10*3/uL Normal 0.7-3.1 [facility]; [facility] Work Phone: Comment on above: PATIENT NOT FASTINGP ERFORMED BY: [facility] Ourufo6355 [address] [facility] [id number] Lymphocytes/100 WBC (Bld) 28 % Normal [facility]; [facility] Work Phone: Comment on above: PATIENT NOT FASTINGP ERFORMED BY: LabAsc[facility]6370 [address] [facility] [id number] MCH (RBC) [Entitic mass] 31.3 pg Normal 26.6-33.0 [facility]; [facility] Work Phone: Comment on above: PATIENT NOT FASTINGP ERFORMED BY: [facility] Saureb9246 [address] [facility] [id number] MCHC (RBC) [Mass/Vol] 34.6 g/dL Normal 31.5-35.7 [facility] prehensive Internal Medicine; [facility] Work Phone: Comment on above: PATIENT NOT FASTINGP ERFORMED BY: [facility] Haraxn7951 [address] [facility]in [place] [id number] MCV (RBC) [Entitic vol] 90 fL Normal 79-97 [facility] hospitalrehens[facility] Internal Medicine; [facility] Work Phone: Comment on above: PATIENT NOT FASTINGP ERFORMED BY: [facility] Nrngwf[address] [facility] [place] [id number] Monocytes (Bld) [#/Vol] 0.9 {x10E3/uL} Normal 0.1-0.9 [facility]; [facility] Work Phone: Comment on above: PATIENT NOT FASTINGP ERFORMED BY: CB [facility] Vnreaf2967 [address] RoadDublin [place] [id number] Monocytes (Bld) [#/Vol] 0.9 10*3/uL Normal 0.1-0.9 [facility]; [facility] Work Phone: Comment on above: PATIENT NOT FASTINGP ERFORMED BY: CB [facility] Boeqkd4869 [address] RoadDublin [place] [id number] Monocytes/100 WBC (Bld) 10 % Normal C omprehensive Internal Medicine; [facility] Work Phone: Comment on above: PATIENT NOT FASTINGP ERFORMED BY: CB [facility] Eegsog1391 [address] RoadDublin [place] [id number] Neutrophils (Bld) [#/Vol] 5.0 {x10E3/uL} Normal 1.4-7.0 [facility]; [facility] Work Phone: Comment on above: PATIENT NOT FASTINGP ERFORMED BY: CB [facility] Badtdm8079 [address] RoadDublin [place] [id number] Neutrophils (Bld) [#/Vol] 5.0 10*3/uL Normal 1.4-7.0 [facility]; [facility] Work Phone: Comment on above: PATIENT NOT FASTINGP ERFORMED BY: CB [facility] Cpvgbs5176 [address] RoadDublin [place] [id number] Neutrophils/100 WBC (Bld) 58 % Normal [facility]; [facility] Work Phone: Comment on above: PATIENT NOT FASTINGP ERFORMED BY: CB [facility] Jrzxgx2434 [address] RoadDublin [place] [id number] Platelets (Bld) [#/Vol] 240 {x10E3/uL} Normal 150-450 [facility]; [facility] Work Phone: Comment on above: PATIENT NOT FASTINGP ERFORMED BY: CB [facility] Himdpg9725 [address] RoadDublin [place] [id number] Platelets (Bld) [#/Vol] 240 10*3/uL Normal 150-450 [facility]; [facility] Work Phone: Comment on above: PATIENT NOT FASTINGP ERFORMED BY: HALEIGH [facility] Famesk4513 [address] RoadDublin [place] [id number] RBC (Bld) [#/Vol] 4.32 {x10E6/uL} Normal 3.77-5.[address] [facility] [address] Louisensive [facility]; [facility] Work Phone: Comment on above: PATIENT NOT FASTINGP ERFORMED BY: CB [facility] Ovrdpa1899 [address] RoadDublin [place] [id number] RBC (Bld) [#/Vol] 4.32 10*6/uL Normal 3.77-5.28 [facility] Internal Medicine; [facility] Work Phone: Comment on above: PATIENT NOT FASTINGP ERFORMED BY: CB [facility] Ykkiui2719 [address] RoadDublin [place] [id number] WBC (Bld) [#/Vol] 8.6 {x10E3/uL} Normal 3.4-10.8 [facility] Internal Medicine; [facility] Work Phone: Comment on above: PATIENT NOT FASTINGP ERFORMED BY: CB [facility] Lbxmtt7950 [address] RoadDublin [place] [id number] WBC (Bld) [#/Vol] 8.6 10*3/uL Normal 3.4-10.8 [facility] Internal Medicine; [facility] Work Phone: Comment on above: PATIENT NOT FASTINGP ERFORMED BY: CB [facility] Ffwnzr6528 [address] RoadDublin [place] [id number] HgA1C , Office ([id number])Ordere d By: Turner Balderas on 09-15-2020 HbA1c (Bld) [Mass fraction] 5.7 % Normal 4.6 - 7.1 [facility]; [facility] Work Phone: Comment on above: 5.7 Metabolic Panel, Comprehensi ve ([id number])Ordered By: Database Marketing Manager on 09-15-2020 Albumin [Mass/Vol] 3.7 g/dL Normal 3.6-4.6 [facility] Internal Medicine; [facility] Work Phone: Comment on above: PATIENT NOT FASTINGP ERFORMED BY: CB [facility] Nwgkxk1138 [address] RoadDublin [place] [id number] Albumin/Globulin [Mass ratio] 1.4 {ratio} Normal 1.2-2.2 [facility]; [facility] Work Phone: Comment on above: PATIENT NOT FASTINGP ERFORMED BY: CB [facility] Yuzrtk9230 [address] RoadDublin [place] [id number] ALP [Catalytic activity/Vol] 71 [iU]/L Normal 39-117 [facility]; [facility] Work Phone: Comment on above: PATIENT NOT FASTINGP ERFORMED BY: CB [facility] Ujzxgw2597 [address] RoadDublin [place] [id number] ALP [Catalytic activity/Vol] 71 U/L Normal 39-117 [facility]; [facility] Work Phone: Comment on above: PATIENT NOT FASTINGP ERFORMED BY: CB [facility] Bjqvxs9689 [address] RoadDublin [place] [id number] ALT [Catalytic activity/Vol] 28 [iU]/L Normal 0-32 [facility]; [facility] Work Phone: Comment on above: PATIENT NOT FASTINGP ERFORMED BY: CB [facility] Dpudxe1794 [address] RoadDublin [place] [id number] ALT [Catalytic activity/Vol] 28 U/L Normal 0-32 [facility]; [facility] Work Phone: Comment on above: PATIENT NOT FASTINGP ERFORMED BY: CB [facility] Shqxrh2347 [address] RoadDublin [place] [id number] AST [Catalytic activity/Vol] 26 [iU]/L Normal 0-40 [facility]; [facility] Work Phone: Comment on above: PATIENT NOT FASTINGP ERFORMED BY: CB [facility] Zaqsjb2556 [address] RoadDublin [place] [id number] AST [Catalytic activity/Vol] 26 U/L Normal 0-40 [facility]; [facility] Work Phone: Comment on above: PATIENT NOT FASTINGP ERFORMED BY: CB [facility] Vzwwej9324 [address] RoadDublin [place] [id number] Bilirubin [Mass/Vol] 0.9 mg/dL Normal 0.0-1.2 [facility] rehensive Internal Medicine; [facility] Work Phone: Comment on above: PATIENT NOT FASTINGP ERFORMED BY: CB [facility] Ajmxay8333 [address] RoadDublin [place] [id number] Calcium [Mass/Vol] 9.5 mg/dL Normal 8.7-10.3 [facility] Internal Medicine; [facility] Work Phone: Comment on above: PATIENT NOT FASTINGP ERFORMED BY: CB [facility] Lcnwjn4053 [address] RoadDublin [place] [id number] Chloride [Moles/Vol] 106 mmol/L Normal 96-106 [facility]; [facility] Work Phone: Comment on above: PATIENT NOT FASTINGP ERFORMED BY: CB [facility] Sqflaw0139 [address] RoadDublin [place] [id number] CO2 [Moles/Vol] 23 mmol/L Normal 20-29 [facility] Internal Medicine; [facility] Work Phone: Comment on above: PATIENT NOT FASTINGP ERFORMED BY: CB [facility] Snixhm5027 [address] RoadDublin [place] [id number] Creatinine [Mass/Vol] 1.22 mg/dL Abnormal 0.57-1.00 [facility]; [facility] Work Phone: Comment on above: PATIENT NOT FASTINGP ERFORMED BY: CB [facility] Nejqse3596 [address] RoadDublin [place] [id number] GFR/1.73 sq M predicted among blacks CKD-EPI (S/P/Bld) [Vol rate/Area] 47 mL/min/1.73 Abnormal [facility]; [facility] Work Phone: Comment on above: PATIENT NOT FASTINGP ERFORMED BY: CB [facility] Ulmxsm[address] [place] [id number] GFR/1.73 sq M predicted among non-blacks CKD-EPI (S/P/Bld) [Vol rate/Area] 41 mL/min/1.73 Abnormal [facility]; [facility] Work Phone: Comment on above: PATIENT NOT FASTINGP ERFORMED BY: CB [facility] Conrah0835 [address] Roadblin [place] [id number] Globulin (S) [Mass/Vol] 2.6 g/dL Normal 1.5-4.5 C omprehensive Internal Medicine; [facility] Work Phone: Comment on above: PATIENT NOT FASTINGP ERFORMED BY: HALEIGH [facility] Ddqiki4965 [address] [facility] [place] [id number] Glucose [Mass/Vol] 105 mg/dL Abnormal 65-99 [facility] ecu healthive Internal Medicine; [facility] Work Phone: Comment on above: PATIENT NOT FASTINGP ERFORMED BY: CB [facility] Ynhlsj6499 [address] [facility]in [place] [id number] Potassium [Moles/Vol] 4.8 mmol/L Normal 3.5-5.2 [facility] prehensive Internal Medicine; [facility] Work Phone: Comment on above: PATIENT NOT FASTINGP ERFORMED BY: HALEIGH [facility] Fryxuk5700 [address] [facility]in [place] [id number] Protein [Mass/Vol] 6.3 g/dL Normal 6.0-8.5 [facility] Internal Medicine; [facility] Work Phone: Comment on above: PATIENT NOT FASTINGP ERFORMED BY: CB [facility] Xdvvwx9071 [address] RoadDublin [place] [id number] Sodium [Moles/Vol] 142 mmol/L Normal 134-144 [facility] Internal Medicine; [facility] Work Phone: Comment on above: PATIENT NOT FASTINGP ERFORMED BY: HALEIGH [facility] Cnjgad3686 [address] RoadDublin [place] [id number] Urea nitrogen [Mass/Vol] 26 mg/dL Normal 8-27 [facility]; [facility] Work Phone: Comment on above: PATIENT NOT FASTINGP ERFORMED BY: [employer]6370 [address] [employer] / Nuvem ShopAtrium Health Huntersville [id number] Urea nitrogen/Creatinine [Mass ratio] 21 mg/mg Normal 12-28 [facility]; [facility] Work Phone: Comment on above: PATIENT NOT FASTINGP ERFORMED BY: [employer]6[address] ConductorUNC Health Lenoir [id number] TSH ([id number])Ordered By: Marcelo estrada Wind Development Director on 09-15-2020 TSH Qn 2.220 {uIU/mL} Normal 0.450-4.50 0 [facility]; [facility] Work Phone: Comment on above: PATIENT NOT FASTINGP ERFORMED BY: [employer] App6370 [address] Connected DataAtrium Health Huntersville [id number] Maximilian 08-21-2020 [facility] DEBBIE MIRELES ([id number]) 1935 F Date Time Provider Department 08/21/20 [facility] During your visit today, we recorded the following information about you: Mari Cason LPN 08/21/2020 5:20 PM Signed Daughter called in and wanted to let you know there is new updates that have come out on the medication Ivermectin and was wondering if you would be willing to look at website. This is being recommended for COIVD treatment. website: [email or web address] ealliance 3 doctors: Dr. John Paul Mendoza Also her mother takes colloidal silver liquid to help with keeping her heathy. Started to ask for a nebulizer to have on hand it needed. Scheduled pt for a phone call. Mari Cason LPN Allergies As of Date: 08/21/2020 Noted Allergy Reaction DEMEROL (MEPERIDINE (PF)) 07/11/2005 1 - Mental Status Change LEVAQUIN (LEVOFLOXACIN) 08/11/2014 8 - GI Upset MORPHINE 01/28/2018 11 - Vomiting Date Reviewed: 12/14/2019 Reviewed by: Shannon Magallanes Ma - Fully Assessed Reason for Visit: Follow Up Phone Call [[phone]] Cmt: Daughter called Prescriptions as of 08/21/2020 Sig: NATEGLINIDE 60 MG TABLET Take 1 tablet by mouth three * METOPROLOL SUCCINATE ER 50 MG* Take 1 tablet by mouth once d* CYCLOBENZAPRINE 10 MG TABLET Take 0.5 tablets by mouth thr* NYSTATIN 100,000 UNIT/ML ORAL* Take 5 mL by mouth four times* LISINOPRIL 20 MG TABLET Take 1 tablet by mouth once d* MAGNESIUM ORAL Take by mouth. COMPOUNDED PRESCRIPTION Artery Cleanse COMPOUNDED PRESCRIPTION [facility]io [place] Healthy heart* OMEGA 0-VQQ-SIT-OTHER OM3-D3 * Take by mouth. ASPIRIN 81 [...] q hs Problem List As Of Date 08/21/2020 Noted Resolved DERMATOPHYTOSIS OF NAIL [B35.1] 05/30/2005 LUMBAGO [M54.5] PERS HX COLONIC POLYPS [Z86.010] More... DIVERTICULOSIS OF COLON W/O BLEED [K57.30] More... Unspecified hemorrhoids without mention of comp* 03/14/2016 More... 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 Candidiasis of skin and nail [B37.2] 08/01/2016 04/17/2017 Pancreatic cyst [K86.2] 04/17/2017 More... 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 PATIENT GENDER DATA: Female. status: : No status: NO. PATIENT RELEVANT IMPLANT DATA REVIEWED: Yes ALLERGIES: Reviewed and unchanged CONTRAST ALLERGY: NO. EXAM: MRI - CONTRAST TYPE: GROUP II PERIPHERAL IV DATA: Ambulatory: A peripheral IV was started in the Left antecubital site with a Angio cath/Butterfly: 22 gauge. RADIOLOGY DEPARTMENT: MR; Exam(s) Completed: Body: Pancreas/Biliary SIGNATURE: GATITO Cannon PATIENT NAME: Debbie Mireles DATE: February 24, 2019 TIME: 8:05 AM [facility] MRI 3D POST PROCESSINGon MRI 3D POST PROCESSING * * *Final Report * * * DATE OF EXAM: Feb 24 2019 8:34AM [facility] 0280 - MRI 3D POST PROCESSING / PROCEDURE REASON: K86.2-Pancreatic cyst * * * * Physician Interpretation * * * * MRI OF THE ABDOMEN WITHOUT AND WITH CONTRAST: CLINICAL HISTORY: Follow-up pancreatic cysts COMPARISON: 05/01/2017 MRI TECHNIQUE: Using the torso phased array coil, axial STIR, T1 weighted in- and [id number] and axial and coronal HASTE images were obtained. Thick-slab and thin-slab heavily T2 weighted images were also obtained (MRCP). Then, using a 3-D GRE T1 weighted sequence, dynamic images were obtained before, during and after the intravenous administration of 20 cc of Dotarem. 3-D images were postprocessed on a dedicated off-line workstation and were reviewed by the interpreting physician. FINDINGS: Biliary tract: The common bile duct is normal in course and caliber. No filling defect is identified within the common duct. Pancreatic duct: The visualized portions of the pancreatic duct are normal. No pancreas divisum. Pancreas: Numerous, at least 12, widely scattered tiny cystic areas throughout the pancreas which to my measurement range up to 4 to 5 mm, series 7 image 156 and series 3 image 29. No enhancing pancreatic mass is noted. No peripancreatic bright signal fluid or edema. Gallbladder: Unremarkable Liver: The liver is normal in appearance on precontrast images, enhances homogeneously and is without focal lesion. Normal morphology. No definite steatosis. Spleen: No lesion is identified. Adrenal glands: Smoothly bordered round to ovoid left adrenal nodule is stable. Kidneys: No hydronephrosis. Cortical atrophy in the mid and upper left kidney are again noted. Scattered tiny bilateral renal cysts are again noted. No adenopathy is identified. No ascites or abnormal fluid collections are seen. IMPRESSION: Tiny scattered pancreatic cysts are stable. Assistant Project Manager: OSCAR Transcribe Date/Time: Feb 24 2019 12:37P Dictated by : OVIDIO RAMIREZ MD This examination was interpreted and the report reviewed and electronically signed by: OVIDIO RAMIREZ MD on Feb 24 2019 1:33PM EST [id number] N [facility] MRI PANC/ASHLYN WO/W IVCONon MRI PANC/ASHLYN WO/W IVCON * * *Final Repor t* * * DATE OF EXAM: Feb 24 2019 8:34AM [facility] 0730 - MRI PANC/ASHLYN WO/W IVCON / PROCEDURE REASON: K86.2-Pancreatic cyst * * * * Physician Interpretation * * * * MRI OF THE ABDOMEN WITHOUT AND WITH CONTRAST: CLINICAL HISTORY: Follow-up pancreatic cysts COMPARISON: 05/01/2017 MRI TECHNIQUE: Using the torso phased array coil, axial STIR, T1 weighted in- and [id number] and axial and coronal HASTE images were obtained. Thick-slab and thin-slab heavily T2 weighted images were also obtained (MRCP). Then, using a 3-D GRE T1 weighted sequence, dynamic images were obtained before, during and after the intravenous administration of 20 cc of Dotarem. 3-D images were postprocessed on a dedicated off-line workstation and were reviewed by the interpreting physician. FINDINGS: Biliary tract: The common bile duct is normal in course and caliber. No filling defect is identified within the common duct. Pancreatic duct: The visualized portions of the pancreatic duct are normal. No pancreas divisum. Pancreas: Numerous, at least 12, widely scattered tiny cystic areas throughout the pancreas which to my measurement range up to 4 to 5 mm, series 7 image 156 and series 3 image 29. No enhancing pancreatic mass is noted. No peripancreatic bright signal fluid or edema. Gallbladder: Unremarkable Liver: The liver is normal in appearance on precontrast images, enhances homogeneously and is without focal lesion. Normal morphology. No definite steatosis. Spleen: No lesion is identified. Adrenal glands: Smoothly bordered round to ovoid left adrenal nodule is stable. Kidneys: No hydronephrosis. Cortical atrophy in the mid and upper left kidney are again noted. Scattered tiny bilateral renal cysts are again noted. No adenopathy is identified. No ascites or abnormal fluid collections are seen. IMPRESSION: Tiny scattered pancreatic cysts are stable. Assistant Project Manager: OSCAR Transcribe Date/Time: Feb 24 2019 12:37P Dictated by : OVIDIO RAMIREZ MD This examination was interpreted and the report reviewed and electronically signed by: OVIDIO RAMIREZ MD on Feb 24 2019 1:33PM EST [id number] N [facility] FOOT COMPLETE RTon 8 FOOT COMPLETE RT [facility] [address] [address] Patient: DEBBIE MIRELES Phone#: : [phone] Age: 82 Gender: F Pt. Type: Out Account: [id number] Location: Ordering: CELIO GAYLE Exam Date: 01/27/2018/16:19 Family Phys: PHILIP DEANO Charge Code: [id number] Physician: Millard Order #: [id number] DLP Dose#: PROCEDURE: X-RAY FOOT RT COMPLETE [...] Sandra Mitchell MD on 01/27/2018 at 16:45 Normal [facility] Office Visit: carotid stenos blue 05-09-2017 Fall risk assessment No Invalid Interpretation Code [facility] Work Phone: Protein mass conc Done Invalid Interpretation Code [facility] Work Phone: Tobacco smoking status NHIS Never smoker Invalid Interpretation Code [facility] Work Phone: Anaerobic culture Bacteria identified Anaer cx Nom (Unsp spec) No growth in 5 days. [facility] Work Phone: Bacteria identified Anaer cx Nom (Unsp spec) No anaerobic bacteria isolated. [facility] Work Phone: Bacteria identified Anaer cx Nom (Unsp spec) Anaerobic microbial culture No anaerobic bacteria isolated. [facility] Work Phone: Bacteria identified Cx Nom ( Wound) Wound Culture Pseudomonas aeroginosa [facility] Work Phone: COVID-19 virus antigen assay SARS-CoV-2 (COVID-19) Ag IA.rapid Ql (Resp) [facility] Work Phone: Culture, urine Bacteria identified Cx Nom (U) Mixed Gram Pos & Gram Neg Org [facility] Work Phone: Gram stain for investigation of transfusion reaction Microscopic observation Gram stain Nom (Unsp spec) [facility] Work Phone: Influenza virus A and B and SARS-CoV-2 (COVID-19) Ag panel - Upper respiratory specim SARS-CoV-2 (COVID-19) RNA KAYLIE+probe Ql (Resp) [facility] Work Phone: Laboratory - Microbiology an d Antimicrobial susceptibility Bacteria identified Cx Nom (Bld) No growth in 5 days. [facility] Work Phone: No Panel Information SARS-CoV-2 & FLU Antigen (Rapid) [facility] Work Phone: RSV Ag EIA RSV Ag Immune stain Ql (Tiss) [facility] Work Phone: Routine wound culture Bacteria identified Cx Nom (Wound) No growth aerobically. [facility] Work Phone: Vital Signs Date Time Vital Sign Value Performing Clinician Facility 01-01-2025 12:21-0400 Body temperature 98.2 [degF] Dr. Martina Lal DO Work Phone: [facility] 01-01-2025 12:21-0400 Diastolic blood pressure 64 mm[Hg] Dr. Martina Lal DO Work Phone: [facility] 01-01-2025 12:21-0400 Heart rate 85 /min Dr. Martina Lal DO Work Phone: [facility] 01-01-2025 12:21-0400 Respiratory rate 17 /min Dr. Martina Lal DO Work Phone: [facility] 01-01-2025 12:21-0400 SaO2% (BldA) [Mass fraction] 96 % Dr. Martina Lal DO Work Phone: [facility] 01-01-2025 12:21-0400 Systolic blood pressure 144 mm[Hg] Dr. Martina Lal DO Work Phone: [facility] 12-24-2024 09:29-0400 Body height 157.[address] Martina Lal DO Work Phone: [facility] 12-16-2024 14:22-0400 Diastolic blood pressure 50 mm[Hg] Dr. Martina Lal DO Work Phone: [facility] 12-16-2024 14:22-0400 Systolic blood pressure 148 mm[Hg] Dr. Martina Lal DO Work Phone: [facility] 12-16-2024 09:36-0400 Body mass index (BMI) [Ratio] 41.1 kg/m2 Dr. Martina Lal DO Work Phone: [facility] 12-16-2024 09:36-0400 Body weight 102.[address] Martina Lal DO Work Phone: [facility] 12-16-2024 09:36-0400 Heart rate 73 /min Dr. Martina Lal DO Work Phone: [facility] 12-16-2024 09:36-0400 Respiratory rate 20 /min Dr. Martina Lal DO Work Phone: [facility] 12-16-2024 09:36-0400 SaO2% (BldA) [Mass fraction] 96 % Dr. Martina Lal DO Work Phone: [facility] 08-17-2024 12:53-0500 Body height 157.[address] Martina Lal DO Work Phone: [facility] 08-17-2024 12:53-0500 Body mass index (BMI) [Ratio] 40.6 kg/m2 Dr. Martina Lal DO Work Phone: [facility] 08-17-2024 12:53-0500 Body weight 100.[address] Martina Lal DO Work Phone: [facility] 08-17-2024 12:53-0500 Diastolic blood pressure 70 mm[Hg] Dr. Martina Lal DO Work Phone: [facility] 08-17-2024 12:53-0500 Heart rate 74 /min Dr. Martina Lal DO Work Phone: [facility] 08-17-2024 12:53-0500 Respiratory rate 18 /min Dr. Martina Lal DO Work Phone: [facility] 08-17-2024 12:53-0500 SaO2% (BldA) [Mass fraction] 96 % Dr. Martina Lal DO Work Phone: [facility] 08-17-2024 12:53-0500 Systolic blood pressure 148 mm[Hg] Dr. Martina Lal DO Work Phone: [facility] 08-09-2024 15:56-0500 Body temperature 97.8 [degF] Dr. Martina Lal DO Work Phone: [facility] 08-09-2024 15:56-0500 Body weight 102.[address] Martina Lal DO Work Phone: [facility] 08-09-2024 15:56-0500 Diastolic blood pressure 60 mm[Hg] Dr. Martina Lal DO Work Phone: [facility] 08-09-2024 15:56-0500 Heart rate 80 /min Dr. Martina Lal DO Work Phone: [facility] 08-09-2024 15:56-0500 Respiratory rate 16 /min Dr. Martina Lal DO Work Phone: [facility] 08-09-2024 15:56-0500 SaO2% (BldA) [Mass fraction] 92 % Dr. Martina Lal DO Work Phone: [facility] 08-09-2024 15:56-0500 Systolic blood pressure 144 mm[Hg] Dr. Martina Lal DO Work Phone: [facility] 10-16-2023 09:36-0400 Body height 154.[address] Martina Lal Work Phone: [facility] 10-16-2023 09:36-0400 Body mass index (BMI) [Ratio] 41.1 kg/m2 Dr. Martina Lal Work Phone: [facility] 10-16-2023 09:36-0400 Body weight 98.[address] Martina Lal Work Phone: [facility] 10-16-2023 09:36-0400 Diastolic blood pressure 66 mm[Hg] Dr. Martina Lal Work Phone: [facility] 10-16-2023 09:36-0400 Heart rate 53 /min Dr. Martina Lal Work Phone: [facility] 10-16-2023 09:36-0400 Respiratory rate 20 /min Dr. Martina Lal Work Phone: [facility] 10-16-2023 09:36-0400 Systolic blood pressure 149 mm[Hg] Dr. Martina Lal Work Phone: [facility] 09-10-2023 19:11-0500 Body temperature 97.5 [degF] Dr. Martina Lal Work Phone: [facility] 09-10-2023 19:11-0500 Diastolic blood pressure 82 mm[Hg] Dr. Martina Lal Work Phone: [facility] 09-10-2023 19:11-0500 Heart rate 87 /min Dr. Martina Lal Work Phone: [facility] 09-10-2023 19:11-0500 Respiratory rate 16 /min Dr. Martina Lal Work Phone: [facility] 09-10-2023 19:11-0500 SaO2% (BldA) [Mass fraction] 96 % Dr. Martina Lal Work Phone: [facility] 09-10-2023 19:11-0500 Systolic blood pressure 164 mm[Hg] Dr. Martina Lal Work Phone: [facility] 09-10-2023 16:26-0500 Body height 154.[address] Martina Lal Work Phone: [facility] 09-10-2023 16:26-0500 Body mass index (BMI) [Ratio] 38.7 kg/m2 Dr. Martina Lal Work Phone: [facility] 09-10-2023 16:26-0500 Body weight 92.[address] Martina Lal Work Phone: [facility] 06-03-2023 07:46-0500 Body height 154.[address] Martina Lal Work Phone: [facility] 06-03-2023 07:46-0500 Body mass index (BMI) [Ratio] 39.2 kg/m2 Dr. Martina Lal Work Phone: [facility] 06-03-2023 07:46-0500 Body temperature 97.6 [degF] Dr. Martina Lal Work Phone: [facility] 06-03-2023 07:46-0500 Body weight 94.[address] Martina Lal Work Phone: [facility] 06-03-2023 07:46-0500 Diastolic blood pressure 54 mm[Hg] Dr. Martina Lal Work Phone: [facility] 06-03-2023 07:46-0500 Heart rate 61 /min Dr. Martina Lal Work Phone: [facility] 06-03-2023 07:46-0500 SaO2% (BldA) [Mass fraction] 95 % Dr. Martina Lal Work Phone: [facility] 06-03-2023 07:46-0500 Systolic blood pressure 139 mm[Hg] Dr. Martina Lal Work Phone: [facility] 04-08-2023 14:59-0400 Body temperature 98 [degF] Dr. Martina Lal Work Phone: [facility] 04-08-2023 14:59-0400 Diastolic blood pressure 69 mm[Hg] Dr. Martina Lal Work Phone: [facility] 04-08-2023 14:59-0400 Heart rate 66 /min Dr. Martina Lal Work Phone: [facility] 04-08-2023 14:59-0400 Respiratory rate 16 /min Dr. Martina Lal Work Phone: [facility] 04-08-2023 14:59-0400 SaO2% (BldA) [Mass fraction] 97 % Dr. Martina Lal Work Phone: [facility] 04-08-2023 14:59-0400 Systolic blood pressure 182 mm[Hg] Dr. Martina Lal Work Phone: [facility] 03-03-2023 13:39-0400 Body height 154.[address] Martina Lal Work Phone: [facility] 03-03-2023 13:39-0400 Body mass index (BMI) [Ratio] 39.9 kg/m2 Dr. Martina Lal Work Phone: [facility] 03-03-2023 13:39-0400 Body weight 95.[address] Martina Lal Work Phone: [facility] 03-03-2023 13:39-0400 Diastolic blood pressure 67 mm[Hg] Dr. Martina Lal Work Phone: [facility] 03-03-2023 13:39-0400 Heart rate 66 /min Dr. Martina Lal Work Phone: [facility] 03-03-2023 13:39-0400 Respiratory rate 18 /min Dr. Martina Lal Work Phone: [facility] 03-03-2023 13:39-0400 Systolic blood pressure 159 mm[Hg] Dr. Martina Lal Work Phone: [facility] 01-31-2023 14:33-0400 Body height 155.57 cm Katharina [facility] Work Phone: 01-31-2023 14:33-0400 Body mass index (BMI) [Ratio] 40.67 kg/m2 Katharina [facility]; [facility] Work Phone: 01-31-2023 14:33-0400 Body surface area Derived from formula 1.96 m2 [facility]; [facility] Work Phone: 01-31-2023 14:33-0400 Body temperature 97.8 [degF] Katharina [facility]; [facility] Work Phone: Comment on above: Method: Thermal Scan 01-31-2023 14:33-0400 Body weight 98.43 kg Katharian [facility]; [facility] Work Phone: 01-31-2023 14:33-0400 Diastolic blood pressure 62 mm[Hg] [facility]; [facility] Work Phone: Comment on above: Patient Position: Sitting; Cuff Location : Left Arm; Cuff Size: Standard 01-31-2023 14:33-0400 Heart rate 68 /min Katharina [place] [facility]; [facility] Work Phone: Comment on above: Pattern: Regular 01-31-2023 14:33-0400 Respiratory rate 16 /min Katharina Marion [facility]; [facility] Work Phone: Comment on above: Pattern: Unlabored 01-31-2023 14:33-0400 SaO2% (BldA) [Mass fraction] 95 % Katharina Marion [facility]; [facility] Work Phone: Comment on above: Room air 01-31-2023 14:33-0400 Systolic blood pressure 122 mm[Hg] Katharina Marion [facility]; [facility] Work Phone: Comment on above: Patient Position: Sitting; Cuff Location : Left Arm; Cuff Size: Standard 12-02-2022 13:46-0400 Body height 154.[address] Martina Lal Work Phone: [facility] 12-02-2022 13:46-0400 Body mass index (BMI) [Ratio] 39.9 kg/m2 Dr. Martina Lal Work Phone: [facility] 12-02-2022 13:46-0400 Body temperature 97.2 [degF] Dr. Martina Lal Work Phone: [facility] 12-02-2022 13:46-0400 Body weight 95.[address] Martina Lal Work Phone: [facility] 12-02-2022 13:46-0400 Diastolic blood pressure 55 mm[Hg] Dr. Martina Lal Work Phone: [facility] 12-02-2022 13:46-0400 Heart rate 54 /min Dr. Martina Lal Work Phone: [facility] 12-02-2022 13:46-0400 Respiratory rate 18 /min Dr. Martina Lal Work Phone: [facility] 12-02-2022 13:46-0400 SaO2% (BldA) [Mass fraction] 94 % Dr. Martina Lal Work Phone: [facility] 12-02-2022 13:46-0400 Systolic blood pressure 136 mm[Hg] Dr. Martina Lal Work Phone: [facility] 09-10-2022 07:53-0500 Body height 154.[address] Martina Lal Work Phone: [facility] 09-10-2022 07:53-0500 Body mass index (BMI) [Ratio] 40.8 kg/m2 Dr. Martina Lal Work Phone: [facility] 09-10-2022 07:53-0500 Body temperature 97 [degF] Dr. Martina Lal Work Phone: [facility] 09-10-2022 07:53-0500 Body weight 97.[address] Martina Lal Work Phone: [facility] 09-10-2022 07:53-0500 Diastolic blood pressure 66 mm[Hg] Dr. Martina Lal Work Phone: [facility] 09-10-2022 07:53-0500 Heart rate 72 /min Dr. Martina Lal Work Phone: [facility] 09-10-2022 07:53-0500 Respiratory rate 17 /min Dr. Martina Lal Work Phone: [facility] 09-10-2022 07:53-0500 SaO2% (BldA) [Mass fraction] 93 % Dr. Martina Lal Work Phone: [facility] 09-10-2022 07:53-0500 Systolic blood pressure 164 mm[Hg] Dr. Martina Lal Work Phone: [facility] 09-04-2022 15:09-0500 Body mass index (BMI) [Ratio] 40.6 kg/m2 Dr. Martina Lal Work Phone: [facility] 09-04-2022 15:09-0500 Body weight 97.[address] Martina Lal Work Phone: [facility] 09-04-2022 15:09-0500 Diastolic blood pressure 75 mm[Hg] Dr. Martina Lal Work Phone: [facility] 09-04-2022 15:09-0500 Heart rate 69 /min Dr. Martina Lal Work Phone: [facility] 09-04-2022 15:09-0500 Respiratory rate 20 /min Dr. Martina Lal Work Phone: [facility] 09-04-2022 15:09-0500 SaO2% (BldA) [Mass fraction] 95 % Dr. Martina Lal Work Phone: [facility] 09-04-2022 15:09-0500 Systolic blood pressure 175 mm[Hg] Dr. Martian Lal Work Phone: [facility] 09-02-2022 13:21-0500 Body mass index (BMI) [Ratio] 41.1 kg/m2 Dr. Martina Lal Work Phone: [facility] 09-02-2022 13:21-0500 Body temperature 97.2 [degF] Dr. Martina Lal Work Phone: [facility] 09-02-2022 13:21-0500 Body weight 98.[address] Martina Lal Work Phone: [facility] 09-02-2022 13:21-0500 Diastolic blood pressure 70 mm[Hg] Dr. Martina Lal Work Phone: [facility] 09-02-2022 13:21-0500 Heart rate 73 /min Dr. Martina Lal Work Phone: [facility] 09-02-2022 13:21-0500 Respiratory rate 18 /min Dr. Martina Lal Work Phone: [facility] 09-02-2022 13:21-0500 SaO2% (BldA) [Mass fraction] 98 % Dr. Martina Lal Work Phone: [facility] 09-02-2022 13:21-0500 Systolic blood pressure 163 mm[Hg] Dr. Martina Lal Work Phone: [facility] 08-29-2022 13:08-0500 Body height 155.57 cm Martina Lal DO Work Phone: [facility]; [facility] Work Phone: 08-29-2022 13:08-0500 Body mass index (BMI) [Ratio] 40.67 kg/m2 Martina Lal DO Work Phone: [facility]; [facility] Work Phone: 08-29-2022 13:08-0500 Body surface area Derived from formula 1.96 m2 Martina Lal DO Work Phone: [facility]; [facility] Work Phone: 08-29-2022 13:08-0500 Body weight 98.43 kg Martina Lal DO Work Phone: [facility]; [facility] Work Phone: 08-29-2022 13:08-0500 Diastolic blood pressure 59 mm[Hg] Alondra Stapleton [facility]; [facility] Work Phone: Comment on above: Patient Position: Sitting; Cuff Location : Left Arm; Cuff Size: Standard 08-29-2022 13:08-0500 Heart rate 74 /min Martinamichelle Lal DO Work Phone: [facility]; [facility] Work Phone: Comment on above: Pattern: Regular 08-29-2022 13:08-0500 Systolic blood pressure 154 mm[Hg] Alondra Stapleton [facility]; [facility] Work Phone: Comment on above: Patient Position: Sitting; Cuff Location : Left Arm; Cuff Size: Standard 07-25-2022 09:12-0500 Body height 155.57 cm [facility]; [facility] Work Phone: 07-25-2022 09:12-0500 Body mass index (BMI) [Ratio] 40.71 kg/m2 Alondra [facility]; [facility] Work Phone: 07-25-2022 09:12-0500 Body surface area Derived from formula 1.96 m2 [facility]; [facility] Work Phone: 07-25-2022 09:12-0500 Body temperature 96.1 [degF] [facility]; [facility] Work Phone: 07-25-2022 09:12-0500 Body weight 98.54 kg [facility]; [facility] Work Phone: 07-25-2022 09:12-0500 Diastolic blood pressure 64 mm[Hg] [facility]; [facility] Work Phone: Comment on above: Patient Position: Sitting; Cuff Location : Left Arm; Cuff Size: Standard 07-25-2022 09:12-0500 Heart rate 72 /min [facility]; [facility] Work Phone: Comment on above: Pattern: Regular 07-25-2022 09:12-0500 Respiratory rate 16 /min [facility]; [facility] Work Phone: Comment on above: Pattern: Unlabored 07-25-2022 09:12-0500 SaO2% (BldA) [Mass fraction] 95 % [facility]; [facility] Work Phone: Comment on above: Room air 07-25-2022 09:12-0500 Systolic blood pressure 122 mm[Hg] [facility]; [facility] Work Phone: Comment on above: Patient Position: Sitting; Cuff Location : Left Arm; Cuff Size: Standard 07-18-2022 08:01-0500 Body height 154.[address] Martina Lal Work Phone: [facility] 07-18-2022 08:01-0500 Body mass index (BMI) [Ratio] 41.5 kg/m2 Dr. Martina Lal Work Phone: [facility] 07-18-2022 08:01-0500 Body temperature 97.2 [degF] Dr. Martina Lal Work Phone: [facility] 07-18-2022 08:01-0500 Body weight 99.[address] Martina Lal Work Phone: [facility] 07-18-2022 08:01-0500 Diastolic blood pressure 80 mm[Hg] Dr. Martina Lal Work Phone: [facility] 07-18-2022 08:01-0500 Heart rate 78 /min Dr. Martina Lal Work Phone: [facility] 07-18-2022 08:01-0500 Respiratory rate 18 /min Dr. Martina Lal Work Phone: [facility] 07-18-2022 08:01-0500 SaO2% (BldA) [Mass fraction] 96 % Dr. Martina Lal Work Phone: [facility] 07-18-2022 08:01-0500 Systolic blood pressure 153 mm[Hg] Dr. Martina Lal Work Phone: [facility] 07-17-2022 14:32-0500 Body temperature 98 [degF] Dr. Martina Lal Work Phone: [facility] 07-17-2022 14:32-0500 Diastolic blood pressure 54 mm[Hg] Dr. Martina Lal Work Phone: [facility] 07-17-2022 14:32-0500 Heart rate 86 /min Dr. Martina Lal Work Phone: [facility] 07-17-2022 14:32-0500 Respiratory rate 18 /min Dr. Martina Lal Work Phone: [facility] 07-17-2022 14:32-0500 SaO2% (BldA) [Mass fraction] 92 % Dr. Martina Lal Work Phone: [facility] 07-17-2022 14:32-0500 Systolic blood pressure 182 mm[Hg] Dr. Martina Lal Work Phone: [facility] 07-17-2022 10:27-0500 Inhaled oxygen flow rate 2 L/min Dr. Martina Lal Work Phone: [facility] 07-17-2022 05:59-0500 Body weight [address] Martina Lal Work Phone: [facility] 07-14-2022 10:52-0500 Body height 154.[address] Martina Lal Work Phone: [facility] Work Phone: 07-14-2022 01:44-0500 Body mass index (BMI) [Ratio] 49.1 kg/m2 Dr. Martina Lal Work Phone: [facility] 07-14-2022 00:40-0500 Body temperature 97.6 [degF] Dr. Martina Lla Work Phone: [facility] Work Phone: 07-14-2022 00:40-0500 Diastolic blood pressure 55 mm[Hg] Dr. Martina Lal Work Phone: [facility] Work Phone: 07-14-2022 00:40-0500 Heart rate 79 /min Dr. Martina Lal Work Phone: [facility] Work Phone: 07-14-2022 00:40-0500 Respiratory rate 10 /min Dr. Martina Lal Work Phone: [facility] Work Phone: 07-14-2022 00:40-0500 SaO2% (BldA) [Mass fraction] 95 % Dr. Martina Lal Work Phone: [facility] Work Phone: 07-14-2022 00:40-0500 Systolic blood pressure 167 mm[Hg] Dr. Martina Lal Work Phone: [facility] Work Phone: 07-13-2022 18:49-0500 Body height 154.[address] Martina Lal Work Phone: [facility] Work Phone: 07-13-2022 18:49-0500 Body mass index (BMI) [Ratio] 42.9 kg/m2 Dr. Martina Lal Work Phone: [facility] Work Phone: 07-13-2022 18:49-0500 Body weight [address] Martina Lal Work Phone: [facility] Work Phone: 07-10-2022 14:53-0500 [facility] Work Phone: 07-10-2022 14:53-0500 Body mass index (BMI) [Ratio] 43.18 kg/m2 [facility]; [facility] Work Phone: 07-10-2022 14:53-0500 Body surface area Derived from formula 2.01 m2 thaddeus [facility]; [facility] Work Phone: 07-10-2022 14:53-0500 Body temperature 96.6 [degF] [facility] Comprehens[facility] e Internal Medicine; [facility] Work Phone: 07-10-2022 14:53-0500 Body weight 104.51 kg [facility]; [facility] Work Phone: 07-10-2022 14:53-0500 Diastolic blood pressure 68 mm[Hg] [facility]; [facility] Work Phone: Comment on above: Patient Position: Sitting; Cuff Location : Left Arm; Cuff Size: Standard 07-10-2022 14:53-0500 Heart rate 68 /min [facility]; [facility] Work Phone: Comment on above: Pattern: Regular 07-10-2022 14:53-0500 Respiratory rate 16 /min [facility] Comprehens[facility] e Internal [facility]; [facility] Work Phone: Comment on above: Pattern: Unlabored 07-10-2022 14:53-0500 SaO2% (BldA) [Mass fraction] 95 % [facility]; [facility] Work Phone: Comment on above: Room air 07-10-2022 14:53-0500 Systolic blood pressure 142 mm[Hg] [facility]; [facility] Work Phone: Comment on above: Patient Position: Sitting; Cuff Location : Left Arm; Cuff Size: Standard 07-10-2022 12:54-0500 Body mass index (BMI) [Ratio] 41.9 kg/m2 Dr. Martina Lal Work Phone: [facility] 07-10-2022 12:54-0500 Body weight 100.[address] Martina Lal Work Phone: [facility] 07-10-2022 12:54-0500 Diastolic blood pressure 69 mm[Hg] Dr. Martina Lal Work Phone: [facility] 07-10-2022 12:54-0500 Heart rate 80 /min Dr. Martina Lal Work Phone: [facility] 07-10-2022 12:54-0500 Respiratory rate 20 /min Dr. Martina Lal Work Phone: [facility] 07-10-2022 12:54-0500 SaO2% (BldA) [Mass fraction] 97 % Dr. Martina Lal Work Phone: [facility] 07-10-2022 12:54-0500 Systolic blood pressure 178 mm[Hg] Dr. Martina Lal Work Phone: [facility] 07-07-2022 15:45-0500 Body temperature 97.5 [degF] Dr. Martina Lal Work Phone: [facility] 07-07-2022 15:45-0500 Diastolic blood pressure 50 mm[Hg] Dr. Martina Lal Work Phone: [facility] 07-07-2022 15:45-0500 Heart rate 65 /min Dr. Martina Lal Work Phone: [facility] 07-07-2022 15:45-0500 Respiratory rate 18 /min Dr. Martina Lal Work Phone: [facility] 07-07-2022 15:45-0500 SaO2% (BldA) [Mass fraction] 96 % Dr. Martina Lal Work Phone: [facility] 07-07-2022 15:45-0500 Systolic blood pressure 161 mm[Hg] Dr. Martina Lal Work Phone: [facility] 07-07-2022 02:15-0500 Inhaled oxygen flow rate 2 L/min Dr. Martina Lal Work Phone: [facility] 07-04-2022 11:57-0500 Body weight 103.[address] Martina Lal Work Phone: [facility] 07-02-2022 12:59-0500 Body mass index (BMI) [Ratio] 43.2 kg/m2 Dr. Martina Lal Work Phone: [facility] 07-02-2022 11:50-0500 Body temperature 98.4 [degF] Dr. Martina Lal Work Phone: [facility] Work Phone: 07-02-2022 11:50-0500 Diastolic blood pressure 98 mm[Hg] Dr. Martina Lal Work Phone: [facility] Work Phone: 07-02-2022 11:50-0500 Heart rate 61 /min Dr. Martina Lal Work Phone: [facility] Work Phone: 07-02-2022 11:50-0500 Inhaled oxygen flow rate 2.5 L/min Dr. Martina Lal Work Phone: [facility] Work Phone: 07-02-2022 11:50-0500 Respiratory rate 18 /min Dr. Martina Lal Work Phone: [facility] Work Phone: 07-02-2022 11:50-0500 SaO2% (BldA) [Mass fraction] 94 % Dr. Martina Lal Work Phone: [facility] Work Phone: 07-02-2022 11:50-0500 Systolic blood pressure 114 mm[Hg] Dr. Martina Lal Work Phone: [facility] Work Phone: 07-02-2022 07:26-0500 Body height 154.[address] Martina Lal Work Phone: [facility] Work Phone: 07-02-2022 07:26-0500 Body mass index (BMI) [Ratio] 42.9 kg/m2 Dr. Martina Lal Work Phone: [facility] Work Phone: 07-02-2022 07:26-0500 Body weight 102.[address] Martina Lal Work Phone: [facility] Work Phone: 06-18-2022 14:46-0500 Body height 154.[address] Martina Lal Work Phone: [facility] Work Phone: 06-18-2022 14:34-0500 Body mass index (BMI) [Ratio] 43.4 kg/m2 Dr. Martina Lal Work Phone: [facility] 06-18-2022 14:34-0500 Body temperature 98.4 [degF] Dr. Martina Lal Work Phone: [facility] 06-18-2022 14:34-0500 Body weight 104.[address] Martina Lal Work Phone: [facility] 06-18-2022 14:34-0500 Diastolic blood pressure 68 mm[Hg] Dr. Martina Lal Work Phone: [facility] 06-18-2022 14:34-0500 Heart rate 71 /min Dr. Martina Lal Work Phone: [facility] 06-18-2022 14:34-0500 Respiratory rate 16 /min Dr. Martina Lal Work Phone: [facility] 06-18-2022 14:34-0500 SaO2% (BldA) [Mass fraction] 94 % Dr. Martina Lal Work Phone: [facility] 06-18-2022 14:34-0500 Systolic blood pressure 189 mm[Hg] Dr. Martina Lal Work Phone: [facility] 06-11-2022 14:52-0500 Body mass index (BMI) [Ratio] 43.5 kg/m2 Dr. Martina Lal Work Phone: [facility] 06-11-2022 14:52-0500 Body temperature 98 [degF] Dr. aMrtina Lal Work Phone: [facility] 06-11-2022 14:52-0500 Body weight 104.[address] Martina Lal Work Phone: [facility] 06-11-2022 14:52-0500 Diastolic blood pressure 69 mm[Hg] Dr. Martina Lal Work Phone: [facility] 06-11-2022 14:52-0500 Heart rate 65 /min Dr. Martina Lal Work Phone: [facility] 06-11-2022 14:52-0500 Respiratory rate 16 /min Dr. Martina Lal Work Phone: [facility] 06-11-2022 14:52-0500 SaO2% (BldA) [Mass fraction] 92 % Dr. Martina Lal Work Phone: [facility] 06-11-2022 14:52-0500 Systolic blood pressure 177 mm[Hg] Dr. Martina Lal Work Phone: [facility] 06-10-2022 14:17-0500 Body temperature 97.1 [degF] Alondra Stapleton [facility] Comprehensiv e Internal Medicine; [facility] Work Phone: 06-10-2022 14:17-0500 Diastolic blood pressure 70 mm[Hg] Alondra Stapleton [facility]; [facility] Work Phone: Comment on above: Patient Position: Sitting; Cuff Location : Left Arm; Cuff Size: Standard 06-10-2022 14:17-0500 Heart rate 76 /min Alondra Stapleton [facility]; [facility] Work Phone: Comment on above: Pattern: Regular 06-10-2022 14:17-0500 Respiratory rate 16 /min Alondra Stapleton [facility] Comprehensiv e Internal Medicine; [facility] Work Phone: Comment on above: Pattern: Unlabored 06-10-2022 14:17-0500 SaO2% (BldA) [Mass fraction] 94 % Alondra [facility]; [facility] Work Phone: Comment on above: Room air 06-10-2022 14:17-0500 Systolic blood pressure 132 mm[Hg] [facility]; [facility] Work Phone: Comment on above: Patient Position: Sitting; Cuff Location : Left Arm; Cuff Size: Standard 06-06-2022 15:06-0500 Body temperature 97.5 [degF] Dr. Martina Lal Work Phone: [facility] 06-06-2022 15:06-0500 Diastolic blood pressure 45 mm[Hg] Dr. Martina Lal Work Phone: [facility] 06-06-2022 15:06-0500 Heart rate 57 /min Dr. Martina Lal Work Phone: [facility] 06-06-2022 15:06-0500 Respiratory rate 17 /min Dr. Martina Lal Work Phone: [facility] 06-06-2022 15:06-0500 SaO2% (BldA) [Mass fraction] 92 % Dr. Martina Lal Work Phone: [facility] 06-06-2022 15:06-0500 Systolic blood pressure 148 mm[Hg] Dr. Martina Lal Work Phone: [facility] 06-04-2022 14:01-0500 Body height 154.[address] Martina Lal Work Phone: [facility] Work Phone: 06-04-2022 14:01-0500 Body mass index (BMI) [Ratio] 43.2 kg/m2 Dr. Martina Lal Work Phone: [facility] 06-04-2022 14:01-0500 Body weight 103.[address] Martina Lal Work Phone: [facility] 06-04-2022 14:01-0500 Diastolic blood pressure 66 mm[Hg] Dr. Martina Lal Work Phone: [facility] 06-04-2022 14:01-0500 Heart rate 55 /min Dr. Martina Lal Work Phone: [facility] 06-04-2022 14:01-0500 Respiratory rate 20 /min Dr. Martina Lal Work Phone: [facility] 06-04-2022 14:01-0500 SaO2% (BldA) [Mass fraction] 96 % Dr. Martina Lal Work Phone: [facility] 06-04-2022 14:01-0500 Systolic blood pressure 133 mm[Hg] Dr. Martina Lal Work Phone: [facility] 06-04-2022 11:00-0500 Body weight 104.[address] Martina Lal Work Phone: [facility] 05-24-2022 14:27-0400 Inhaled oxygen flow rate 2 L/min Dr. Martina Lal Work Phone: [facility] 05-23-2022 17:57-0400 Body mass index (BMI) [Ratio] 43.7 kg/m2 Dr. Martina Lal Work Phone: [facility] 05-23-2022 15:05-0400 Heart rate 69 /min Dr. Martina Lal Work Phone: [facility] 05-23-2022 15:00-0400 Body temperature 97.3 [degF] Dr. Martina Lal Work Phone: [facility] 05-23-2022 15:00-0400 Diastolic blood pressure 38 mm[Hg] Dr. Martina Lal Work Phone: [facility] 05-23-2022 15:00-0400 Inhaled oxygen flow rate 2 L/min Dr. Martina Lal Work Phone: [facility] 05-23-2022 15:00-0400 Respiratory rate 20 /min Dr. Martina Lal Work Phone: [facility] 05-23-2022 15:00-0400 SaO2% (BldA) [Mass fraction] 95 % Dr. Martina Lal Work Phone: [facility] 05-23-2022 15:00-0400 Systolic blood pressure 143 mm[Hg] Dr. Martina Lal Work Phone: [facility] 05-23-2022 05:54-0400 Body weight 104.[address] Martina Lal Work Phone: [facility] 05-21-2022 15:23-0400 Body height 154.[address] Martina Lal Work Phone: [facility] Work Phone: 05-20-2022 01:33-0400 Body mass index (BMI) [Ratio] 44 kg/m2 Dr. Martina Lal Work Phone: [facility] 05-20-2022 00:58-0400 Body temperature 98 [degF] Dr. Martina Lal Work Phone: [facility] Work Phone: 05-20-2022 00:58-0400 Diastolic blood pressure 60 mm[Hg] Dr. Martina Lal Work Phone: [facility] Work Phone: 05-20-2022 00:58-0400 Heart rate 70 /min Dr. Martina Lal Work Phone: [facility] Work Phone: 05-20-2022 00:58-0400 Inhaled oxygen flow rate 2 L/min Dr. Martina Lal Work Phone: [facility] Work Phone: 05-20-2022 00:58-0400 Respiratory rate 18 /min Dr. Martina Lal Work Phone: [facility] Work Phone: 05-20-2022 00:58-0400 SaO2% (BldA) [Mass fraction] 94 % Dr. Martina Lal Work Phone: [facility] Work Phone: 05-20-2022 00:58-0400 Systolic blood pressure 175 mm[Hg] Dr. Martina Lal Work Phone: [facility] Work Phone: 05-19-2022 22:18-0400 Body height 154.[address] Martina Lal Work Phone: [facility] Work Phone: 05-19-2022 22:18-0400 Body mass index (BMI) [Ratio] 43.4 kg/m2 Dr. Martina Lal Work Phone: [facility] Work Phone: 05-19-2022 22:18-0400 Body weight 104.[address] Martina Lal Work Phone: [facility] Work Phone: 05-18-2022 13:15-0400 Body temperature 97.9 [degF] Dr. Martina Lal Work Phone: [facility] 05-18-2022 13:15-0400 Diastolic blood pressure 80 mm[Hg] Dr. Martina Lal Work Phone: [facility] 05-18-2022 13:15-0400 Heart rate 69 /min Dr. Martina Lal Work Phone: [facility] 05-18-2022 13:15-0400 Respiratory rate 20 /min Dr. Martina Lal Work Phone: [facility] 05-18-2022 13:15-0400 SaO2% (BldA) [Mass fraction] 93 % Dr. Martina Lal Work Phone: [facility] 05-18-2022 13:15-0400 Systolic blood pressure 165 mm[Hg] Dr. Martina Lal Work Phone: [facility] 05-18-2022 07:20-0400 Inhaled oxygen flow rate 2 L/min Dr. Martina Lal Work Phone: [facility] 05-15-2022 13:58-0400 Body weight 104.[address] Martina Lal Work Phone: [facility] 05-15-2022 08:36-0400 Body mass index (BMI) [Ratio] 43.6 kg/m2 Dr. Martina Lal Work Phone: [facility] 05-15-2022 01:52-0400 Diastolic blood pressure 37 mm[Hg] Dr. Martina Lal Work Phone: [facility] Work Phone: 05-15-2022 01:52-0400 Heart rate 56 /min Dr. Martina Lal Work Phone: [facility] Work Phone: 05-15-2022 01:52-0400 SaO2% (BldA) [Mass fraction] 94 % Dr. Martina Lal Work Phone: [facility] Work Phone: 05-15-2022 01:52-0400 Systolic blood pressure 158 mm[Hg] Dr. Martina Lal Work Phone: [facility] Work Phone: 05-15-2022 01:07-0400 Body temperature 98.9 [degF] Dr. Martina Lal Work Phone: [facility] Work Phone: 05-15-2022 01:07-0400 Inhaled oxygen flow rate 2 L/min Dr. Martina Lal Work Phone: [facility] Work Phone: 05-15-2022 01:07-0400 Respiratory rate 19 /min Dr. Martina Lal Work Phone: [facility] Work Phone: 05-14-2022 20:21-0400 Body height 154.[address] Martina Lal Work Phone: [facility] Work Phone: 05-14-2022 20:21-0400 Body mass index (BMI) [Ratio] 43.4 kg/m2 Dr. Martina Lal Work Phone: [facility] Work Phone: 05-14-2022 20:21-0400 Body weight 104.[address] Martina Lal Work Phone: [facility] Work Phone: 05-10-2022 11:40-0400 Body height 155.57 cm Turner Balderas LPN [facility]; [facility] Work Phone: 05-10-2022 11:40-0400 Body mass index (BMI) [Ratio] 43.18 kg/m2 Turner Balderas LPN [facility]; [facility] Work Phone: 05-10-2022 11:40-0400 Body surface area Derived from formula 2.01 m2 Turner Balderas LPN [facility]; [facility] Work Phone: 05-10-2022 11:40-0400 Body temperature 97.4 [degF] Turner Balderas LPN [facility]; [facility] Work Phone: Comment on above: Method: Infrared 05-10-2022 11:40-0400 Body weight 104.51 kg Truner Balderas LPN [facility]; [facility] Work Phone: 05-10-2022 11:40-0400 Diastolic blood pressure 70 mm[Hg] Turner Balderas LPN [facility]; [facility] Work Phone: Comment on above: Patient Position: Sitting; Cuff Location : Left Arm; Cuff Size: Standard 05-10-2022 11:40-0400 Heart rate 65 /min Turner Balderas LPN [facility]; [facility] Work Phone: Comment on above: Pattern: Regular 05-10-2022 11:40-0400 Respiratory rate 16 /min Turner Balderas LPN [facility]; [facility] Work Phone: Comment on above: Pattern: Unlabored 05-10-2022 11:40-0400 SaO2% (BldA) [Mass fraction] 91 % Turner Balderas LPN [facility]; [facility] Work Phone: Comment on above: Room air 05-10-2022 11:40-0400 Systolic blood pressure 170 mm[Hg] Turner Balderas LPN [facility]; [facility] Work Phone: Comment on above: Patient Position: Sitting; Cuff Location : Left Arm; Cuff Size: Standard 04-30-2022 16:03-0400 Body temperature 98.6 [degF] Dr. Martina Lal Work Phone: [facility] 04-30-2022 16:03-0400 Diastolic blood pressure 41 mm[Hg] Dr. Martina Lal Work Phone: [facility] 04-30-2022 16:03-0400 Heart rate 56 /min Dr. Martina Lal Work Phone: [facility] 04-30-2022 16:03-0400 Respiratory rate 20 /min Dr. Martina Lal Work Phone: [facility] 04-30-2022 16:03-0400 SaO2% (BldA) [Mass fraction] 92 % Dr. Martina Lal Work Phone: [facility] 04-30-2022 16:03-0400 Systolic blood pressure 155 mm[Hg] Dr. Martina Lal Work Phone: [facility] 04-30-2022 11:45-0400 Inhaled oxygen flow rate 3 L/min Dr. Martina Lal Work Phone: [facility] 04-30-2022 08:00-0400 Body height 154.[address] Martina Lal Work Phone: [facility] Work Phone: 04-30-2022 08:00-0400 Body mass index (BMI) [Ratio] 42.9 kg/m2 Dr. Martina Lal Work Phone: [facility] 04-30-2022 08:00-0400 Body weight [address] Martina Lal Work Phone: [facility] 04-19-2022 11:51-0400 Body height 155.57 cm Martina Lukasz DO Work Phone: [facility] Work Phone: 04-19-2022 11:51-0400 Body mass index (BMI) [Ratio] 44.42 kg/m2 Martina Lukasz DO Work Phone: [facility]; [facility] Work Phone: 04-19-2022 11:51-0400 Body surface area Derived from formula 2.04 m2 Martina Lukasz DO Work Phone: [facility]; [facility] Work Phone: 04-19-2022 11:51-0400 Body temperature 97.3 [degF] Martina Lukasz DO Work Phone: [facility]; [facility] Work Phone: Comment on above: Method: Oral 04-19-2022 11:51-0400 Body weight 107.5 kg Martina Lukasz DO Work Phone: [facility]; [facility] Work Phone: 04-19-2022 11:51-0400 Diastolic blood pressure 80 mm[Hg] Martina Lukasz DO Work Phone: [facility]; [facility] Work Phone: Comment on above: Patient Position: Sitting; Cuff Location : Left Arm; Cuff Size: Standard 04-19-2022 11:51-0400 Heart rate 58 /min Martina Lal DO Work Phone: [facility]; [facility] Work Phone: Comment on above: Pattern: Regular 04-19-2022 11:51-0400 Respiratory rate 20 /min Martina Lal DO Work Phone: [facility]; [facility] Work Phone: 04-19-2022 11:51-0400 SaO2% (BldA) [Mass fraction] 94 % Martina Lal DO Work Phone: [facility]; [facility] Work Phone: Comment on above: Room air 04-19-2022 11:51-0400 Systolic blood pressure 200 mm[Hg] Martina Lal DO Work Phone: [facility]; [facility] Work Phone: Comment on above: Patient Position: Sitting; Cuff Location : Left Arm; Cuff Size: Standard 04-09-2022 15:37-0400 Body height 154.[address] Martina Lal Work Phone: [facility] Work Phone: 04-09-2022 15:37-0400 Body mass index (BMI) [Ratio] 44.1 kg/m2 Dr. Martina Lal Work Phone: [facility] Work Phone: 04-09-2022 15:37-0400 Body temperature 98.1 [degF] Dr. Martina Lal Work Phone: [facility] Work Phone: 04-09-2022 15:37-0400 Body weight 105.[address] Martina Lal Work Phone: [facility] Work Phone: 04-09-2022 15:37-0400 Diastolic blood pressure 62 mm[Hg] Dr. Martina Lal Work Phone: [facility] Work Phone: 04-09-2022 15:37-0400 Heart rate 72 /min Dr. Martina Lal Work Phone: [facility] Work Phone: 04-09-2022 15:37-0400 Respiratory rate 22 /min Dr. Martina Lal Work Phone: [facility] Work Phone: 04-09-2022 15:37-0400 SaO2% (BldA) [Mass fraction] 94 % Dr. Martina Lal Work Phone: [facility] Work Phone: 04-09-2022 15:37-0400 Systolic blood pressure 211 mm[Hg] Dr. Martina Lal Work Phone: [facility] Work Phone: 03-18-2022 10:22-0400 Body height 154.[address] Martina Lal Work Phone: [facility] Work Phone: 03-18-2022 10:22-0400 Body mass index (BMI) [Ratio] 44 kg/m2 Dr. Martina Lal Work Phone: [facility] Work Phone: 03-18-2022 10:22-0400 Body temperature 98 [degF] Dr. Martina Lal Work Phone: [facility] Work Phone: 03-18-2022 10:22-0400 Body weight 105.[address] Martina Lal Work Phone: [facility] Work Phone: 03-18-2022 10:22-0400 Diastolic blood pressure 59 mm[Hg] Dr. Martina Lal Work Phone: [facility] Work Phone: 03-18-2022 10:22-0400 Heart rate 61 /min Dr. Martina Lal Work Phone: [facility] Work Phone: 03-18-2022 10:22-0400 Respiratory rate 18 /min Dr. Martina Lal Work Phone: [facility] Work Phone: 03-18-2022 10:22-0400 SaO2% (BldA) [Mass fraction] 95 % Dr. Martina Lal Work Phone: [facility] Work Phone: 03-18-2022 10:22-0400 Systolic blood pressure 182 mm[Hg] Dr. Martina Lal Work Phone: [facility] Work Phone: 03-14-2022 12:59-0400 Body height 155.57 cm K[facility] Work Phone: Comment on above: o2 went up to 92% pt c/o freezing cold f ingers from waiting room being cold she was not SOB or distressed 03-14-2022 12:59-0400 Body mass index (BMI) [Ratio] 44.42 kg/m2 [facility]; [facility] Work Phone: Comment on above: o2 went up to 92% pt c/o freezing cold f ingers from waiting room being cold she was not SOB or distressed 03-14-2022 12:59-0400 Body surface area Derived from formula 2.04 m2 [facility]; [facility] Work Phone: Comment on above: o2 went up to 92% pt c/o freezing cold f ingers from waiting room being cold she was not SOB or distressed 03-14-2022 12:59-0400 Body temperature 97.3 [degF] [facility]; [facility] Work Phone: Comment on above: o2 went up to 92% pt c/o freezing cold f ingers from waiting room being cold she was not SOB or distressed 03-14-2022 12:59-0400 Body weight 107.5 kg Keri Johnson [facility] Work Phone: Comment on above: o2 went up to 92% pt c/o freezing cold f ingers from waiting room being cold she was not SOB or distressed 03-14-2022 12:59-0400 Diastolic blood pressure 76 mm[Hg] Keri Johnson [facility] Work Phone: Comment on above: Patient Position: Sitting; Cuff Location : Left Arm; Cuff Size: Standard o2 went up to 92% pt c/o freezing cold fingers from waiting room being cold she was not SOB or distressed 03-14-2022 12:59-0400 Heart rate 60 /min Keri Johnson [facility]; [facility] Work Phone: Comment on above: Pattern: Regular o2 went up to 92% pt c/o freezing cold fingers from waiting room being cold she was not SOB or distressed 03-14-2022 12:59-0400 Respiratory rate 20 /min Keri Johnson [facility]; [facility] Work Phone: Comment on above: Pattern: Unlabored o2 went up to 92% pt c/o freezing cold fingers from waiting room being cold she was not SOB or distressed 03-14-2022 12:59-0400 SaO2% (BldA) [Mass fraction] 88 % Keri Johnson [facility]; [facility] Work Phone: Comment on above: Room air o2 went up to 92% pt c/o freezing cold fingers from waiting room being cold she was not SOB or distressed 03-14-2022 12:59-0400 Systolic blood pressure 120 mm[Hg] Keri Johnson [facility] Work Phone: Comment on above: Patient Position: Sitting; Cuff Location : Left Arm; Cuff Size: Standard o2 went up to 92% pt c/o freezing cold fingers from waiting room being cold she was not SOB or distressed 03-07-2022 12:11-0400 Body height 155.57 cm Keri Gravius [employer] [facility]; [facility] Work Phone: Comment on above: no vs taken as this is phone encounter d ue to covid 03-07-2022 12:11-0400 Body mass index (BMI) [Ratio] 44.42 kg/m2 Keri Gravius [facility] Work Phone: Comment on above: no vs taken as this is phone encounter d ue to covid 03-07-2022 12:11-0400 Body surface area Derived from formula 2.04 m2 Keri Gravius [facility]; [facility] Work Phone: Comment on above: no vs taken as this is phone encounter d ue to covid 03-07-2022 12:11-0400 Body weight 107.5 kg Keri Gravius [facility]; [facility] Work Phone: Comment on above: no vs taken as this is phone encounter d ue to covid 02-18-2022 15:47-0400 Body height 155.57 cm Keri Gravius [facility] Work Phone: 02-18-2022 15:47-0400 Body mass index (BMI) [Ratio] 44.42 kg/m2 Keri Gravius [facility] Work Phone: 02-18-2022 15:47-0400 Body surface area Derived from formula 2.04 m2 Keri Gravius [facility] Work Phone: 02-18-2022 15:47-0400 Body temperature 98.1 [degF] Keri Gravius [facility]; [facility] Work Phone: Comment on above: Method: Infrared 02-18-2022 15:47-0400 Body weight 107.5 kg Keri Gravius [facility]; [facility] Work Phone: 02-18-2022 15:47-0400 Diastolic blood pressure 54 mm[Hg] Keri Gravius [facility]; [facility] Work Phone: Comment on above: Patient Position: Sitting; Cuff Location : Left Arm; Cuff Size: Standard 02-18-2022 15:47-0400 Heart rate 64 /min Keri Johnson CMA [facility]; [facility] Work Phone: Comment on above: Pattern: Regular 02-18-2022 15:47-0400 Respiratory rate 18 /min Keri Johnson CMA [facility]; [facility] Work Phone: Comment on above: Pattern: Unlabored 02-18-2022 15:47-0400 SaO2% (BldA) [Mass fraction] 92 % Keri Johnson [facility]; [facility] Work Phone: Comment on above: Room air 02-18-2022 15:47-0400 Systolic blood pressure 138 mm[Hg] Keri Johnson [employer] [facility]; [facility] Work Phone: Comment on above: Patient Position: Sitting; Cuff Location : Left Arm; Cuff Size: Standard 12-31-2021 11:02-0400 Body height 155.57 cm Keri Johnson [facility] Work Phone: 12-31-2021 11:02-0400 Body mass index (BMI) [Ratio] 44.42 kg/m2 Keri Johnson [facility] Work Phone: 12-31-2021 11:02-0400 Body surface area Derived from formula 2.04 m2 Keri Johnson [facility]; [facility] Work Phone: 12-31-2021 11:02-0400 Body temperature 97.3 [degF] Keri Johnson [employer] [facility]; [facility] Work Phone: Comment on above: Method: Temporal 12-31-2021 11:02-0400 Body weight 107.5 kg Keri Johnson [employer] [facility]; [facility] Work Phone: 12-31-2021 11:02-0400 Diastolic blood pressure 52 mm[Hg] Keri Johnson [facility]; [facility] Work Phone: Comment on above: Patient Position: Sitting; Cuff Location : Left Arm; Cuff Size: Standard 12-31-2021 11:02-0400 Heart rate 62 /min Keri Johnson [facility]; [facility] Work Phone: Comment on above: Pattern: Regular 12-31-2021 11:02-0400 Respiratory rate 16 /min Keri Johnson [facility]; [facility] Work Phone: Comment on above: Pattern: Unlabored 12-31-2021 11:02-0400 SaO2% (BldA) [Mass fraction] 92 % Keri Johnson [facility]; [facility] Work Phone: Comment on above: Room air 12-31-2021 11:02-0400 Systolic blood pressure 141 mm[Hg] Keri Johnson [facility]; [facility] Work Phone: Comment on above: Patient Position: Sitting; Cuff Location : Left Arm; Cuff Size: Standard 11-09-2021 10:12-0400 Body height 154.[address] Martina Lal Work Phone: [facility] Work Phone: 11-09-2021 10:12-0400 Body mass index (BMI) [Ratio] 44.7 kg/m2 Dr. Martina Lal Work Phone: [facility] Work Phone: 11-09-2021 10:12-0400 Body temperature 97.4 [degF] Dr. Martina Lal Work Phone: [facility] Work Phone: 11-09-2021 10:12-0400 Body weight 107.[address] Martina Lal Work Phone: [facility] Work Phone: 11-09-2021 10:12-0400 Diastolic blood pressure 69 mm[Hg] Dr. Martina Lal Work Phone: [facility] Work Phone: 11-09-2021 10:12-0400 Heart rate 54 /min Dr. Martina Lal Work Phone: [facility] Work Phone: 11-09-2021 10:12-0400 Respiratory rate 17 /min Dr. Martina Lal Work Phone: [facility] Work Phone: 11-09-2021 10:12-0400 SaO2% (BldA) [Mass fraction] 95 % Dr. Martina Lal Work Phone: [facility] Work Phone: 11-09-2021 10:12-0400 Systolic blood pressure 177 mm[Hg] Dr. Martina Lal Work Phone: [facility] Work Phone: 10-17-2021 13:49-0400 Body height 155.57 cm Nelda Mallory LPN [facility]; [facility] Work Phone: 10-17-2021 13:49-0400 Body mass index (BMI) [Ratio] 43.1 kg/m2 Nelda Mallory LPN [facility]; [facility] Work Phone: 10-17-2021 13:49-0400 Body surface area Derived from formula 2.01 m2 Nelda Mallory LPN [facility]; [facility] Work Phone: 10-17-2021 13:49-0400 Body weight 104.33 kg Nelda Mallory LPN [facility]; [facility] Work Phone: 10-17-2021 13:49-0400 Diastolic blood pressure 62 mm[Hg] Nelda Mallory LPN [facility]; [facility] Work Phone: Comment on above: Patient Position: Sitting; Cuff Location : Left Arm; Cuff Size: Standard 10-17-2021 13:49-0400 Heart rate 53 /min Nelda Mallory LPN [facility]; [facility] Work Phone: Comment on above: Pattern: Regular 10-17-2021 13:49-0400 Respiratory rate 16 /min Neldamónica Swanabhinav BRIGGS [facility]; [facility] Work Phone: Comment on above: Pattern: Unlabored 10-17-2021 13:49-0400 SaO2% (BldA) [Mass fraction] 96 % Nelda Mallory LPN [facility]; [facility] Work Phone: Comment on above: Room air 10-17-2021 13:49-0400 Systolic blood pressure 140 mm[Hg] Nelda Mallory LPN [facility]; [facility] Work Phone: Comment on above: Patient Position: Sitting; Cuff Location : Left Arm; Cuff Size: Standard 10-10-2021 08:54-0400 Body height 155.57 cm Turner Balderas LPN [facility]; [facility] Work Phone: 10-10-2021 08:54-0400 Body mass index (BMI) [Ratio] 44.09 kg/m2 Turner Balderas LPN [facility]; [facility] Work Phone: 10-10-2021 08:54-0400 Body surface area Derived from formula 2.03 m2 Turner Balderas LPN [facility]; [facility] Work Phone: 10-10-2021 08:54-0400 Body weight 106.71 kg Turner Balderas LPN [facility]; [facility] Work Phone: 10-10-2021 08:54-0400 Diastolic blood pressure 71 mm[Hg] Turner Balderas LPN [facility]; [facility] Work Phone: Comment on above: Patient Position: Sitting; Cuff Location : Left Arm; Cuff Size: Standard 10-10-2021 08:54-0400 Systolic blood pressure 197 mm[Hg] Turner Balderas LPN [facility]; [facility] Work Phone: Comment on above: Patient Position: Sitting; Cuff Location : Left Arm; Cuff Size: Standard 10-03-2021 08:18-0400 Body height 155.57 cm Nicolasa Nazario Work Phone: [facility]; [facility] Work Phone: Comment on above: repeat 120/70 10-03-2021 08:18-0400 Body mass index (BMI) [Ratio] 44.09 kg/m2 Nicolasa Nazario Work Phone: [facility]; [facility] Work Phone: Comment on above: repeat 120/70 10-03-2021 08:18-0400 Body surface area Derived from formula 2.03 m2 Nicolasa Nazario Work Phone: [facility]; [facility] Work Phone: Comment on above: repeat 120/70 10-03-2021 08:18-0400 Body temperature 97.3 [degF] Nicolasa Nazario Work Phone: [facility]; [facility] Work Phone: Comment on above: repeat 120/70 10-03-2021 08:18-0400 Body weight 106.71 kg Nicolasa Nazario Work Phone: [facility]; [facility] Work Phone: Comment on above: repeat 120/70 10-03-2021 08:18-0400 Diastolic blood pressure 78 mm[Hg] Nicolasa Nazario Work Phone: [facility]; [facility] Work Phone: Comment on above: Patient Position: Sitting; Cuff Location : Left Arm; Cuff Size: Standard repeat 120/70 10-03-2021 08:18-0400 Heart rate 60 /min Nicolasa Nazario Work Phone: [facility]; [facility] Work Phone: Comment on above: Pattern: Regular repeat 120/70 10-03-2021 08:18-0400 Respiratory rate 16 /min Nicolasa Nazario Work Phone: [facility]; [facility] Work Phone: Comment on above: Pattern: Unlabored repeat 120/70 10-03-2021 08:18-0400 SaO2% (BldA) [Mass fraction] 98 % Nicolasa Nazario Work Phone: [facility]; [facility] Work Phone: Comment on above: Room air repeat 120/70 10-03-2021 08:18-0400 Systolic blood pressure 102 mm[Hg] Nicolasa Nazario Work Phone: [facility]; [facility] Work Phone: Comment on above: Patient Position: Sitting; Cuff Location : Left Arm; Cuff Size: Standard repeat 120/70 09-26-2021 14:05-0500 Body height 155.57 cm Nelda Mallory LPN [facility]; [facility] Work Phone: 09-26-2021 14:05-0500 Body mass index (BMI) [Ratio] 44.86 kg/m2 Nelda Mallory LPN [facility]; [facility] Work Phone: 09-26-2021 14:05-0500 Body surface area Derived from formula 2.05 m2 Nelda Mallory LPN [facility]; [facility] Work Phone: 09-26-2021 14:05-0500 Body temperature 97.1 [degF] Nelda Mallory LPN [facility]; [facility] Work Phone: Comment on above: Method: Temporal 09-26-2021 14:05-0500 Body weight 108.58 kg Nelda Mallory LPN [facility]; [facility] Work Phone: 09-26-2021 14:05-0500 Diastolic blood pressure 68 mm[Hg] Nelda Mallory LPN [facility]; [facility] Work Phone: Comment on above: Patient Position: Sitting; Cuff Location : Left Arm; Cuff Size: Standard 09-26-2021 14:05-0500 Heart rate 64 /min Nelda Mallory LPN [facility]; [facility] Work Phone: Comment on above: Pattern: Regular 09-26-2021 14:05-0500 Respiratory rate 16 /min Nelda Mallory LPN [facility]; [facility] Work Phone: Comment on above: Pattern: Unlabored 09-26-2021 14:05-0500 SaO2% (BldA) [Mass fraction] 95 % Nelda Mallory LPN [facility]; [facility] Work Phone: Comment on above: Room air 09-26-2021 14:05-0500 Systolic blood pressure 148 mm[Hg] Nelda Mallory LPN [facility]; [facility] Work Phone: Comment on above: Patient Position: Sitting; Cuff Location : Left Arm; Cuff Size: Standard 08-10-2021 08:16-0500 Body height 155.57 cm Keri Johnson [facility] Work Phone: 08-10-2021 08:16-0500 Body mass index (BMI) [Ratio] 43.86 kg/m2 Keri Johnson [facility] Work Phone: 08-10-2021 08:16-0500 Body surface area Derived from formula 2.03 m2 Keri Johnson [facility] Work Phone: 08-10-2021 08:16-0500 Body temperature 97.1 [degF] Keri Johnson [facility]; [facility] Work Phone: Comment on above: Method: Infrared 08-10-2021 08:16-0500 Body weight 106.15 kg Keri Johnson [facility] Work Phone: 08-10-2021 08:16-0500 Diastolic blood pressure 82 mm[Hg] Keri Johnson [facility]; [facility] Work Phone: Comment on above: Patient Position: Sitting; Cuff Location : Left Arm; Cuff Size: Standard 08-10-2021 08:16-0500 Heart rate 57 /min Keri Johnson [facility]; [facility] Work Phone: Comment on above: Pattern: Regular 08-10-2021 08:16-0500 Respiratory rate 16 /min Keri Johnson CMA [facility] Work Phone: Comment on above: Pattern: Unlabored 08-10-2021 08:16-0500 SaO2% (BldA) [Mass fraction] 97 % Keri Johnson [facility]; [facility] Work Phone: Comment on above: Room air 08-10-2021 08:16-0500 Systolic blood pressure 158 mm[Hg] Keri Johnson [facility]; [facility] Work Phone: Comment on above: Patient Position: Sitting; Cuff Location : Left Arm; Cuff Size: Standard 08-09-2021 13:30-0500 Body height 155.57 cm Diane Austin MA [facility]; [facility] Work Phone: Comment on above: pt reported 08-09-2021 13:30-0500 Body mass index (BMI) [Ratio] 43.86 kg/m2 Diane Austin MA [facility]; [facility] Work Phone: Comment on above: pt reported 08-09-2021 13:30-0500 Body surface area Derived from formula 2.03 m2 Diane Austin MA [facility]; [facility] Work Phone: Comment on above: pt reported 08-09-2021 13:30-0500 Body weight 106.15 kg Diane Austin MA [facility]; [facility] Work Phone: Comment on above: pt reported 08-09-2021 13:30-0500 Diastolic blood pressure 80 mm[Hg] Diane Austin MA [facility]; [facility] Work Phone: Comment on above: Patient Position: Sitting; Cuff Location : Left Arm; Cuff Size: Standard pt reported 08-09-2021 13:30-0500 Heart rate 49 /min Diane Austin MA [facility]; [facility] Work Phone: Comment on above: Pattern: Regular pt reported 08-09-2021 13:30-0500 SaO2% (BldA) [Mass fraction] 95 % Diane Austin MA [facility]; [facility] Work Phone: Comment on above: Room air pt reported 08-09-2021 13:30-0500 Systolic blood pressure 172 mm[Hg] Diane Austin MA [facility]; [facility] Work Phone: Comment on above: Patient Position: Sitting; Cuff Location : Left Arm; Cuff Size: Standard pt reported 05-28-2021 11:13-0500 Body height 155.57 cm Diane Austin MA [facility]; [facility] Work Phone: 05-28-2021 11:13-0500 Body mass index (BMI) [Ratio] 43.86 kg/m2 Diane Austin MA [facility]; [facility] Work Phone: 05-28-2021 11:13-0500 Body surface area Derived from formula 2.03 m2 Diane Austin MA [facility]; [facility] Work Phone: 05-28-2021 11:13-0500 Body temperature 96.9 [degF] Diane Austin MA [facility]; [facility] Work Phone: Comment on above: Method: Temporal 05-28-2021 11:13-0500 Body weight 106.15 kg Diane Austin MA [facility]; [facility] Work Phone: 05-28-2021 11:13-0500 Diastolic blood pressure 80 mm[Hg] Diane Austin MA [facility]; [facility] Work Phone: Comment on above: Patient Position: Sitting; Cuff Location : Left Arm; Cuff Size: Standard 05-28-2021 11:13-0500 Heart rate 55 /min Diane Austin MA [facility]; [facility] Work Phone: Comment on above: Pattern: Regular 05-28-2021 11:13-0500 Respiratory rate 17 /min Diane Austin MA [facility]; [facility] Work Phone: Comment on above: Pattern: Unlabored 05-28-2021 11:13-0500 SaO2% (BldA) [Mass fraction] 93 % Diane Austin MA [facility]; [facility] Work Phone: Comment on above: Room air 05-28-2021 11:13-0500 Systolic blood pressure 140 mm[Hg] Diane Austin MA [facility]; [facility] Work Phone: Comment on above: Patient Position: Sitting; Cuff Location : Left Arm; Cuff Size: Standard 04-04-2021 14:35-0400 Body height 155.57 cm Nelda Mallory LPN [facility]; [facility] Work Phone: 04-04-2021 14:35-0400 Body mass index (BMI) [Ratio] 43.3 kg/m2 Nelda Mallory LPN [facility]; [facility] Work Phone: 04-04-2021 14:35-0400 Body surface area Derived from formula 2.01 m2 Nelda Mallory LPN [facility]; [facility] Work Phone: 04-04-2021 14:35-0400 Body temperature 97.1 [degF] Nelda Mohamud LPN [facility]; [facility] Work Phone: Comment on above: Method: Temporal 04-04-2021 14:35-0400 Body weight 104.79 kg Nelda Mohamud LPN [facility]; [facility] Work Phone: 04-04-2021 14:35-0400 Diastolic blood pressure 70 mm[Hg] Nelda Mallory LPN [facility]; [facility] Work Phone: Comment on above: Patient Position: Sitting; Cuff Location : Left Arm; Cuff Size: Standard 04-04-2021 14:35-0400 Heart rate 59 /min Nelda Mallory LPN [facility]; [facility] Work Phone: Comment on above: Pattern: Regular 04-04-2021 14:35-0400 Respiratory rate 16 /min Nelda Mallory LPN [facility]; [facility] Work Phone: Comment on above: Pattern: Unlabored 04-04-2021 14:35-0400 SaO2% (BldA) [Mass fraction] 96 % Nelda Mallory LPN [facility]; [facility] Work Phone: Comment on above: Room air 04-04-2021 14:35-0400 Systolic blood pressure 150 mm[Hg] Nelda Mallory LPN [facility]; [facility] Work Phone: Comment on above: Patient Position: Sitting; Cuff Location : Left Arm; Cuff Size: Standard 03-20-2021 12:27-0400 Body height 155.57 cm Nelda Mallory LPN [facility]; [facility] Work Phone: 03-20-2021 12:27-0400 Body mass index (BMI) [Ratio] 43.3 kg/m2 Nelda Mallory LPN [facility]; [facility] Work Phone: 03-20-2021 12:27-0400 Body surface area Derived from formula 2.01 m2 Nelda Mallory LPN [facility]; [facility] Work Phone: 03-20-2021 12:27-0400 Body temperature 97.3 [degF] Nelda Mallory LPN [facility]; [facility] Work Phone: Comment on above: Method: Temporal 03-20-2021 12:27-0400 Body weight 104.79 kg Nelda Mallory LPN [facility]; [facility] Work Phone: 03-20-2021 12:27-0400 Diastolic blood pressure 82 mm[Hg] Nelda Mallory LPN [facility]; [facility] Work Phone: Comment on above: Patient Position: Sitting; Cuff Location : Left Arm; Cuff Size: Standard 03-20-2021 12:27-0400 Heart rate 63 /min Nelda Mallory LPN [facility]; [facility] Work Phone: Comment on above: Pattern: Regular 03-20-2021 12:27-0400 Respiratory rate 16 /min Nelda Mallory LPN [facility]; [facility] Work Phone: Comment on above: Pattern: Unlabored 03-20-2021 12:27-0400 SaO2% (BldA) [Mass fraction] 94 % Neldamónica Swanabhinav BRIGGS [facility]; [facility] Work Phone: Comment on above: Room air 03-20-2021 12:27-0400 Systolic blood pressure 144 mm[Hg] Nelda Mallory [place] [facility]; [facility] Work Phone: Comment on above: Patient Position: Sitting; Cuff Location : Left Arm; Cuff Size: Standard 12-13-2020 12:29-040 Body height 155.57 cm Turner Balderas LPN [facility]; [facility] Work Phone: 12-13-2020 12:29-0400 Body mass index (BMI) [Ratio] 43.67 kg/m2 Turner Balderas LPN [facility]; [facility] Work Phone: 12-13-2020 12:29-0400 Body mass index (BMI) [Ratio] 44.61 kg/m2 Turner Balderas LPN [facility]; [facility] Work Phone: 12-13-2020 12:29-0400 Body surface area Derived from formula 2.02 m2 Turner Balderas LPN [facility]; [facility] Work Phone: 12-13-2020 12:29-0400 Body surface area Derived from formula 2.04 m2 Turner Balderas LPN [facility]; [facility] Work Phone: 12-13-2020 12:29-0400 Body temperature 97.1 [degF] Turner Balderas LPN [facility]; [facility] Work Phone: Comment on above: Method: Infrared 12-13-2020 12:29-0400 Body weight 105.69 kg Turner Balderas LPN [facility]; [facility] Work Phone: 12-13-2020 12:29-040 Body weight 107.97 kg Turner Balderas LPN [facility]; [facility] Work Phone: 12-13-2020 12:29-0400 Diastolic blood pressure 78 mm[Hg] Turner Balderas LPN [facility]; [facility] Work Phone: Comment on above: Patient Position: Sitting; Cuff Location : Left Arm; Cuff Size: Standard 12-13-2020 12:29-0400 Heart rate 62 /min Turner Balderas LPN [facility]; [facility] Work Phone: Comment on above: Pattern: Regular 12-13-2020 12:29-0400 Respiratory rate 18 /min Turner Balderas LPN [facility]; [facility] Work Phone: Comment on above: Pattern: Unlabored 12-13-2020 12:29-0400 SaO2% (BldA) [Mass fraction] 94 % Turner Balderas LPN [facility]; [facility] Work Phone: Comment on above: Room air 12-13-2020 12:29-0400 Systolic blood pressure 136 mm[Hg] Turner Balderas LPN [facility]; [facility] Work Phone: Comment on above: Patient Position: Sitting; Cuff Location : Left Arm; Cuff Size: Standard 09-15-2020 09:49-0500 BMI (Body Mass Index) 43.67 kg/m2 Turner Balderas LPN [facility]; [facility] Work Phone: 09-15-2020 09:49-0500 Body Temperature 96.9 [degF] Turner Balderas LPN [facility]; [facility] Work Phone: Comment on above: Method: Infrared 09-15-2020 09:49-0500 Body weight 105.69 kg Turner Balderas LPN [facility]; [facility] Work Phone: 09-15-2020 09:49-0500 BP Diastolic 70 mm[Hg] Turner Balderas LPN [facility]; [facility] Work Phone: Comment on above: Patient Position: Sitting; Cuff Location : Left Arm; Cuff Size: Standard 09-15-2020 09:49-0500 BP Systolic 124 mm[Hg] Turner Balderas LPN [facility]; [facility] Work Phone: Comment on above: Patient Position: Sitting; Cuff Location : Left Arm; Cuff Size: Standard 09-15-2020 09:49-0500 BSA (Body Surface Area) 2.02 m2 Turner Balderas LPN [facility]; [facility] Work Phone: 09-15-2020 09:49-0500 Height 155.57 cm Turner Balderas LPN [facility]; [facility] Work Phone: 09-15-2020 09:49-0500 Pulse (Heart Rate) 70 /min Turner Balderas LPN [facility]; [facility] Work Phone: Comment on above: Pattern: Regular 09-15-2020 09:49-0500 Pulse Oximetry 94 % Nicolasa Nazario [facility]; [facility] Work Phone: Comment on above: Room air 09-15-2020 09:49-0500 Respiratory Rate 16 /min Turner Balderas LPN [facility]; [facility] Work Phone: Comment on above: Pattern: Unlabored 09-15-2020 09:49-0500 SaO2% (BldA) [Mass fraction] 94 % Turner Balderas LPN [facility]; [facility] Work Phone: Comment on above: Room air 05-09-2017 14:14-0400 BMI (Body Mass Index) 42.98 kg/m2 Michael Michel MD [facility] Work Phone: 05-09-2017 14:14-0400 BP Diastolic 70 mm[Hg] Michael Michel MD [facility] Work Phone: 05-09-2017 14:14-0400 BP Systolic 150 mm[Hg] Michael Michel MD [facility] Work Phone: 05-09-2017 14:14-0400 Height 157.48 cm Michael Michel MD [facility] Work Phone: 05-09-2017 14:14-0400 Pulse (Heart Rate) 68 /min Michael Michel MD [facility] Work Phone: 05-09-2017 14:14-0400 Respiratory Rate 18 /min Michael Michel MD [facility] Work Phone: 05-09-2017 14:14-0400 Weight 106.6 kg Michael Michel MD [facility] Work Phone: Encounters Encounter Date Encounter Type Care Provider Facility Start: 01-01-2025 End: 01-01-2025 Patient encounter procedure Neftaly [place] -[facility] Work Phone: Start: 01-01-2025 End: 01-01-[address] Martina Lal DO Work Phone: [facility] Work Phone: Start: 12-24-2024 End: 12-24-[address] Brent Kelley MD -[facility] Start: 12-24-2024 End: 12-24-[address] Martina Lal DO Work Phone: [facility] Work Phone: Start: 12-24-2024 End: 12-24-2024 ambulatory Mackenzie Rajiv Facility:[facility] Start: 12-16-2024 End: 12-16-2024 Patient encounter procedure Kimberly [place] -[facility] Work Phone: Start: 12-16-2024 End: 12-16-[address] Martina Lal DO Work Phone: [facility] Work Phone: Start: 12-06-2024 End: 12-06-2024 Patient encounter procedure Kimberly [place] -[facility] Work Phone: Start: 12-06-2024 End: 12-06-2024 ambulatory Martina Lal Facility:[facility] Start: 11-09-2024 Non-patient / Non-visit Dr. Willy jackson MD -[facility] Start: 11-09-2024 End: 11-09-[address] Martina aLl DO Work Phone: [facility] Work Phone: Start: 11-09-2024 End: 11-09-2024 Patient encounter procedure Louise [place] -Cardiovascular Services Work Phone: Start: 11-09-2024 End: 11-09-2024 ambulatory Martina Lal Facility:[facility] Start: 10-12-2024 End: 10-12-[address] Martina Lal DO Work Phone: [facility] Work Phone: Start: 10-12-2024 End: 10-12-[address] Martina Lal DO -[facility] Work Phone: Start: 10-12-2024 End: 10-12-2024 ambulatory Dena Kwok Facility:[facility] Start: 10-07-2024 End: 10-07-[address] Martina Lal DO Work Phone: [facility] Work Phone: Start: 10-07-2024 End: 10-07-[address] Martina Lal DO -[facility] Work Phone: Start: 10-07-2024 End: 10-07-2024 ambulatory Martina Lal Facility:[facility] Start: 09-16-2024 ambulatory Martina Lal Facilit y:[facility] Start: 08-17-2024 End: 08-17-2024 Patient encounter procedure Kimberly [place] -[facility] Work Phone: Start: 08-17-2024 End: 08-17-2024 ambulatory Martina Lal Facility:[facility] Start: 08-09-2024 End: 08-09-[address] Willy Trimble MD -[facility] Work Phone: Start: 08-09-2024 End: 08-09-2024 ambulatory Martina Lal Facility:[facility] Start: 07-01-2024 End: 07-01-2024 ambulatory Tamra Francis Facility:[facility] Start: 07-01-2024 End: 07-01-[address] Tamra Francis MD -Physical Therapy Work Phone: Start: 06-01-2024 ambulatory Martina Lal Facilit y:[facility] Start: 04-30-2024 ambulatory Willy [place] Facility:[facility] Start: 04-30-2024 End: 04-30-2024 ambulatory Willy Atilio Facility:[facility] Start: 04-28-2024 End: 04-28-2024 ambulatory Martina Lal Facility:[facility] Start: 03-19-2024 End: 03-19-2024 ambulatory Martina Lal Facility:[facility] Start: 03-17-2024 End: 03-17-2024 ambulatory Martina Lal Facility:[facility] Start: 03-15-2024 End: 03-15-2024 ambulatory Dena Rissa Facility:[facility] Start: 03-12-2024 End: 03-12-2024 Emergency department patient visit Martina Lukasz Facility:[facility] Start: 03-08-2024 End: 03-08-2024 ambulatory Tamra Francis Facility:[facility] Start: 11-14-2023 End: 11-14-[address] Martina Lal Work Phone: [facility] Work Phone: Start: 11-14-2023 End: 11-14-[address] Martian Lal Work Phone: [facility]-Cardiovascular Services Work Phone: Start: 11-13-2023 End: 11-13-[address] Martina Lal Work Phone: [facility] Work Phone: Start: 11-13-2023 End: 11-13-[address] Martina Lal Work Phone: [facility]-Pulmonary Services/Neurology Work Phone: Start: 11-12-2023 End: 11-12-[address] Martina Lal Work Phone: [facility] Work Phone: Start: 11-12-2023 End: 11-12-[address] Martina Lal Work Phone: [facility] Work Phone: Start: 10-24-2023 End: 10-24-[address] Martina Lal Work Phone: [facility] Work Phone: Start: 10-24-2023 End: 10-24-[address] Martina Lal Work Phone: [facility] Work Phone: Start: 10-16-2023 End: 10-16-[address] Martina Lal Work Phone: [facility] Work Phone: Start: 09-15-2023 End: 09-15-[address] Martina Lal Work Phone: [facility] Work Phone: Start: 09-15-2023 End: 09-15-[address] Martina Lal Work Phone: [facility] Work Phone: Start: 09-10-2023 End: 09-10-2023 Emergency department patient visit Dr. Martina Lal Work Phone: [facility]-Emergency Department Work Phone: Start: 09-05-2023 Non-patient / Non-visit Dr. Pascual Lal Work Phone: [facility] Start: 09-05-2023 End: 09-05-[address] Martina Lal Work Phone: [facility] Work Phone: Start: 09-05-2023 End: 09-05-[address] Martina Lal Work Phone: [facility]-Cardiovascular Services Work Phone: Start: 09-03-2023 End: 09-03-[address] Martina Lal Work Phone: [facility] Work Phone: Start: 09-03-2023 End: 09-03-[address] Martina Lal Work Phone: [facility]-Radiology, [facility] Work Phone: Start: 07-10-2023 End: 07-10-[address] Martina Lal Work Phone: [facility] Work Phone: Start: 07-10-2023 End: 07-10-[address] Martina Lal Work Phone: [facility] Work Phone: Start: 06-03-2023 End: 06-03-[address] Martina Lal Work Phone: [facility]-Pulmonary Medicine [facility] Work Phone: Start: 05-07-2023 End: 05-07-[address] Martina Lal Work Phone: [facility] Work Phone: Start: 05-07-2023 End: 05-07-[address] Martina Lal Work Phone: [facility]-Cat Scan, [facility] Work Phone: Start: 04-08-2023 End: 04-08-[address] Martina Lal Work Phone: [facility] Work Phone: Start: 03-13-2023 Non-patient / Non-visit Dr. Pascual Lal Work Phone: [facility] Work Phone: Start: 03-11-2023 Non-patient / Non-visit [facility] Pascual [facility]la [facility] Start: 03-11-2023 End: 03-11-[address] Martina Lal Work Phone: [facility] Work Phone: Start: 03-11-2023 End: 03-11-[address] [facility] Start: 03-03-2023 End: 03-03-[address] Martina Lal Work Phone: [facility] Work Phone: Start: 02-10-2023 End: 02-17-[address] Martina Lal Work Phone: [facility] Work Phone: Start: 02-10-2023 End: 02-17-[address] Martina Lal Work Phone: [facility] Work Phone: Start: 01-31-2023 End: 02-02-2023 Office outpatient visit 10 minutes Martina Lal DO Work Phone: [facility] Start: 01-31-2023 Review Martina patel DO Work Phone: [facility] Start: 01-10-2023 End: 01-10-[address] Martina Lal Work Phone: [facility] Work Phone: Start: 01-10-2023 End: 01-10-[address] Martina Lal Work Phone: [facility] Work Phone: Start: 12-02-2022 End: 12-02-[address] [facility] Work Phone: Start: 11-11-2022 End: 11-17-[address] Martina Lal Work Phone: [facility] Work Phone: Start: 11-11-2022 End: 11-17-[address] Martina Lal Work Phone: [facility] Start: 10-10-2022 End: 10-18-[address] Martina Lal Work Phone: [facility] Work Phone: Start: 10-10-2022 End: 10-18-[address] Martina Lal Work Phone: [facility] Start: 09-12-2022 End: 09-12-[address] Martina Lal Work Phone: [facility] Work Phone: Start: 09-12-2022 End: 09-12-[address] Martina Lal Work Phone: [facility] Start: 09-12-2022 End: 09-12-2022 Dr. Martina Lal Work Phone: [facility] Start: 09-10-2022 End: 09-10-[address] [facility] Start: 09-10-2022 End: 09-10-2022 Dr. Martina Lal [facility] Start: 09-04-2022 End: 09-04-[address] Martina Lal Work Phone: [facility] Start: 09-04-2022 End: 09-04-2022 Dr. Martina Lal Work Phone: [facility] Start: 09-02-2022 End: 09-02-[address] Martina Lal Work Phone: [facility] Start: 09-02-2022 End: 09-02-2022 Dr. Martina Lal Work Phone: [facility] Start: 08-29-2022 End: 08-29-2022 Office outpatient visit 25 minutes Martina Lal DO Work Phone: [facility] Start: 08-29-2022 Review Martina patel DO Work Phone: [facility] Start: 08-23-2022 ambulatory Martina Lal DO [facility] Start: 08-13-2022 End: 08-13-2022 Lab Order Martina Lal DO Work Phone: [facility] Start: 08-08-2022 End: 08-08-[address] Martina Lal Work Phone: [facility] Work Phone: Start: 08-08-2022 End: 08-08-[address] Martina Lal Work Phone: [facility]-Laboratory Start: 08-08-2022 End: 08-08-2022 Dr. Martina Lal Work Phone: [facility]-Laboratory Start: 08-07-2022 End: 08-07-2022 Admission to establishment Martina Lal DO Work Phone: [facility] Start: 08-01-2022 End: 08-01-[address] Martina Lal Work Phone: [facility] Work Phone: Start: 08-01-2022 End: 08-01-[address] [facility] Start: 08-01-2022 End: 08-01-2022 Dr. [facility] Start: 07-31-2022 End: 07-31-2022 Patient encounter procedure Martina Lal DO Work Phone: [facility] Start: 07-25-2022 Review Martina patel DO Work Phone: [facility] Start: 07-25-2022 End: 07-25-2022 Transitional care manage srvc 14 day discharge Martina Lal DO Work Phone: [facility] Internal Medicine Start: 07-23-2022 End: 08-20-[address] Martina Lal Work Phone: [facility] Work Phone: Start: 07-23-2022 End: 08-20-[address] Martina Lal Work Phone: [facility] Start: 07-23-2022 End: 08-20-2022 Dr. Martina Lal Work Phone: [facility] Start: 07-18-2022 End: 07-18-[address] [facility] Lal [facility] [facility] Start: 07-18-2022 End: 07-18-2022 Dr. Martina Lal Work Phone: [facility] Start: 07-17-2022 Non-patient / Non-visit Dr. Pascual Lal Work Phone: [facility] Start: 07-17-2022 Dr. Martina perera Work Phone: [facility] Start: 07-16-2022 Non-patient / Non-visit Dr. Pascual Lal Work Phone: [facility] Start: 07-16-2022 Dr. Martina perera Work Phone: [facility] Start: 07-16-2022 End: 07-17-2022 Evaluation and management of inpatient Dr. Martina Lal Work Phone: [facility] 3 Start: 07-16-2022 End: 07-17-2022 Dr. Martina Lal Work Phone: [facility] 3 Start: 07-16-2022 End: 07-16-2022 Non-patient / Non-visit Dr. Martina Lal Work Phone: [facility] Start: 07-16-2022 End: 07-16-2022 Dr. Martina Lal Work Phone: [facility] Start: 07-15-2022 Non-patient / Non-visit Dr. Pascual Lal Work Phone: [facility] Start: 07-15-2022 Dr. Martina perera Work Phone: [facility] Start: 07-14-2022 Non-patient / Non-visit Dr. Pascual Lal Work Phone: [facility] Start: 07-14-2022 Dr. Martina perera Work Phone: [facility] Start: 07-13-2022 Evaluation and management of inpatient Dr. Martina Lal Work Phone: [facility] 3 Start: 07-13-2022 Non-patient / Non-visit Dr. Pascual Lal Work Phone: [facility] Start: 07-13-[address] Prisca Lal Work Phone: [facility] Work Phone: Start: 07-13-2022 Dr. Martina perera Work Phone: [facility] Start: 07-10-2022 Review Martina patel DO Work Phone: [facility] Start: 07-10-2022 End: 07-10-2022 Office outpatient visit 15 minutes Martina Lal DO Work Phone: [facility] Start: 07-10-2022 End: 07-10-[address] Martina Lal Work Phone: [facility] Start: 07-10-2022 End: 07-10-2022 Dr. Martina Lal Work Phone: [facility] Start: 07-07-2022 Non-patient / Non-visit Dr. Pascual Lal Work Phone: [facility] Start: 07-07-2022 Dr. Martina perera Work Phone: [facility] Start: 07-06-2022 Non-patient / Non-visit Dr. Pascual Lal Work Phone: [facility] Start: 07-06-2022 Dr. Martina perera Work Phone: [facility] Start: 07-05-2022 Non-patient / Non-visit Dr. Pascual Lal Work Phone: [facility] Start: 07-05-2022 Dr. Martina perera Work Phone: [facility] Start: 07-04-2022 Non-patient / Non-visit Dr. Pascual Lal Work Phone: [facility] Start: 07-04-2022 Dr. Martina perera Work Phone: [facility] Start: 07-04-2022 Non-patient / Non-visit Dr. Pascual Lal Work Phone: [facility] Start: 07-04-2022 Dr. Martina perera Work Phone: [facility] Start: 07-03-2022 End: 07-07-2022 Evaluation and management of inpatient Dr. Martina Lal Work Phone: [facility] Start: 07-03-2022 End: 07-03-2022 Non-patient / Non-visit Dr. Martina Lal Work Phone: [facility] Start: 07-03-2022 End: 07-07-2022 Dr. Martina Lal Work Phone: [facility] Start: 07-02-2022 Rob patel DO Work Phone: [facility] Start: 07-02-2022 Evaluation and management of inpatient Dr. Martina Lal Work Phone: [facility] Start: 07-02-2022 Non-patient / Non-visit Dr. Pascual Lal Work Phone: [facility] Start: 07-02-[address] Prisca Lal Work Phone: [facility] Work Phone: Start: 07-02-2022 Dr. Martina perera Work Phone: [facility] Start: 06-18-2022 End: 06-18-[address] Martina Lal Work Phone: [facility] Start: 06-18-2022 End: 06-18-2022 Dr. Martina Lal Work Phone: [facility] Start: 06-17-2022 End: 06-19-[address] [facility] Start: 06-17-2022 End: 06-19-2022 Dr. Martina Lal Work Phone: [facility] Start: 06-12-2022 End: 06-12-2022 Phone Encounter Martina Lal DO Work Phone: [facility] Start: 06-11-2022 End: 06-11-[address] Martina Lal Work Phone: [facility] Start: 06-11-2022 End: 06-11-2022 Dr. Martina Lal Work Phone: [facility] Start: 06-10-2022 Rob patel DO Work Phone: [facility] Start: 06-10-2022 End: 06-10-2022 Office outpatient visit 40 minutes Martina Lal DO Work Phone: [facility] Start: 06-08-2022 End: 06-19-[address] Martian Lal Work Phone: [facility] Work Phone: Start: 06-08-2022 End: 06-19-[address] Martina Lal Work Phone: [facility]Laboratory, Specimen Start: 06-08-[address] [facility]ito [facility] Start: 06-08-2022 End: 06-19-2022 Dr. [facility] Start: 06-07-2022 End: 06-07-2022 Phone Encounter Martina Lal DO Work Phone: [facility] Start: 06-07-2022 End: 06-07-2022 Phone Encounter Martina Lal DO Work Phone: [facility] Start: 06-06-2022 Non-patient / Non-visit Dr. Pascual Lal Work Phone: [facility] Start: 06-06-2022 End: 06-06-[address] Martina Lal Work Phone: [facility] Work Phone: Start: 06-06-2022 End: 06-06-[address] [facility] Start: 06-06-2022 End: 06-06-2022 Dr. Martina Lal Work Phone: [facility] Start: 06-04-2022 End: 06-04-[address] Martina Lal Work Phone: [facility] Start: 06-04-2022 End: 06-04-2022 Dr. Martina Lal Work Phone: [facility] Start: 06-04-2022 Non-patient / Non-visit Dr. Pascual Lal Work Phone: [facility] Start: 06-04-2022 Dr. Martina perera Work Phone: [facility] Start: 05-30-2022 Non-patient / Non-visit Dr. Pascual Lal Work Phone: [facility] Start: 05-30-2022 Dr. Martina perera Work Phone: [facility] Start: 05-27-2022 Non-patient / Non-visit Dr. Pascual Lal Work Phone: [facility] Start: 05-27-2022 Dr. Martina perera Work Phone: [facility] Start: 05-23-2022 End: 06-06-2022 Evaluation and management of inpatient [facility] Start: 05-23-2022 End: 06-06-2022 Dr. [facility] Start: 05-23-2022 Non-patient / Non-visit Dr. Pascual Lal Work Phone: [facility] Start: 05-23-2022 Dr. Martina perera Work Phone: [facility] Start: 05-23-2022 Non-patient / Non-visit Dr. Pascual Lal Work Phone: [facility] Start: 05-23-2022 Dr. Martina perera Work Phone: [facility] Start: 05-22-2022 Non-patient / Non-visit Dr. Pascual Lal Work Phone: [facility] Start: 05-22-2022 Dr. Martina perera Work Phone: [facility] Start: 05-22-2022 Non-patient / Non-visit Dr. Pascual Lal Work Phone: [facility] Start: 05-22-2022 Dr. Martina perera Work Phone: [facility] Start: 05-21-2022 Non-patient / Non-visit Dr. Pascual Lal Work Phone: [facility] Start: 05-21-2022 Dr. Martina perera Work Phone: [facility] Start: 05-21-2022 Non-patient / Non-visit Dr. Pascual Lal Work Phone: [facility] Start: 05-21-2022 Dr. Martina perera Work Phone: [facility] Start: 05-20-2022 Non-patient / Non-visit Dr. Pascual Lal Work Phone: [facility] Start: 05-20-2022 Dr. Martina perera Work Phone: [facility] Start: 05-20-2022 Non-patient / Non-visit Dr. Pascual Lal Work Phone: [facility] Start: 05-20-2022 End: 05-23-2022 Dr. [facility] Start: 05-20-2022 End: 05-23-2022 Evaluation and management of inpatient Dr. Martina Lal [facility] Start: 05-18-2022 Non-patient / Non-visit Dr. Pascual Lal Work Phone: [facility] Start: 05-18-2022 Dr. Martina perera Work Phone: [facility] Start: 05-18-2022 Non-patient / Non-visit Dr. Pascual Lal Work Phone: [facility] Start: 05-18-2022 Dr. Martina perera Work Phone: [facility] Start: 05-17-2022 Non-patient / Non-visit Dr. Pascual Lal Work Phone: [facility] Start: 05-17-2022 Dr. Martina perera Work Phone: [facility] Start: 05-17-2022 Non-patient / Non-visit Dr. Pascual Lal Work Phone: [facility] Start: 05-17-2022 Dr. Martina perera Work Phone: [facility] Start: 05-16-2022 Non-patient / Non-visit Dr. Pascual Lal Work Phone: [facility] Start: 05-16-2022 Dr. Martina perera Work Phone: [facility] Start: 05-16-2022 Non-patient / Non-visit Dr. Pascual Lal Work Phone: [facility] Start: 05-16-2022 Dr. Martina perera Work Phone: [facility] Start: 05-15-2022 End: 05-18-2022 Evaluation and management of inpatient Dr. Martina Lal Work Phone: [facility]-Medical Surgical 3 Start: 05-15-2022 Non-patient / Non-visit Dr. Pascual Lal Work Phone: [facility] Start: 05-15-2022 End: 05-18-2022 Dr. [facility] Start: 05-13-2022 End: 05-13-[address] Martina Lal Work Phone: [facility] Start: 05-13-2022 End: 05-13-2022 Dr. Martina Lal Work Phone: [facility] Start: 05-10-2022 Review Martina patel DO Work Phone: [facility] Start: 05-10-2022 End: 05-10-2022 Office outpatient visit 15 minutes Martina Lal DO Work Phone: [facility] Start: 05-09-2022 End: 05-09-2022 Annotation/Addendum Martina Lal DO Work Phone: [facility] Start: 05-08-2022 End: 05-08-[address] Martina Lal Work Phone: [facility] Start: 05-08-2022 End: 05-08-2022 Dr. Martina Lal Work Phone: [facility] Start: 05-06-2022 End: 05-06-[address] Martina Lal Work Phone: [facility] Work Phone: Start: 05-06-2022 End: 05-06-[address] Martina Lal Work Phone: [facility] Start: 05-06-2022 End: 05-06-2022 Dr. Martina Lal Work Phone: [facility] Start: 04-30-2022 Non-patient / Non-visit Dr. Pascual Lal Work Phone: [facility] Start: 04-30-2022 End: 04-30-2022 Admission to same day surgery center Dr[facility] Martina Lal [facility] Start: 04-30-2022 End: 04-30-2022 Dr. Mart[facility] Start: 04-25-2022 End: 04-25-[address] Martina Lal Work Phone: [facility] Work Phone: Start: 04-25-2022 End: 04-25-[address] Martina Lal Work Phone: [facility]-Outpatient Bone Densitometry Start: 04-25-2022 End: 04-25-2022 Dr. Martina Lal Work Phone: [facility]-Outpatient Bone Densitometry Start: 04-25-2022 Non-patient / Non-visit Dr. Pascual Lal Work Phone: [facility] Start: 04-25-2022 Dr. Martina perera Work Phone: [facility] Start: 04-19-2022 End: 04-19-2022 Office outpatient visit 15 minutes Martina Lal DO Work Phone: [facility] Start: 04-18-2022 End: 04-18-2022 Annotation/Addendum Martina Lal DO Work Phone: [facility] Start: 04-15-2022 End: 04-15-2022 Patient encounter procedure Martina Lal DO Work Phone: [facility] Start: 04-15-2022 End: 04-15-[address] Martina Lal Work Phone: [facility] Start: 04-15-2022 End: 04-15-2022 Dr. Martina Lal Work Phone: [facility] Start: 04-09-2022 End: 04-09-[address] Martina Lal Work Phone: [facility] Start: 04-09-2022 End: 04-09-[address] Martina Lal Work Phone: [facility] Work Phone: Start: 04-09-2022 End: 04-09-[address] Martina Lal Work Phone: [facility]-Laboratory, Specimen Start: 03-29-2022 End: 03-29-[address] Martina Lal Work Phone: [facility] Work Phone: Start: 03-29-2022 End: 03-29-[address] Martina Lal Work Phone: [facility]-Outpatient Pavilion Ultrasound Start: 03-27-2022 End: 03-27-[address] Martina Lal Work Phone: [facility] Work Phone: Start: 03-27-2022 End: 03-27-[address] Martina Lal Work Phone: [facility]-Outpatient Breast Imaging Start: 03-20-2022 End: 03-20-2022 Annotation/Addendum Martina Lal DO Work Phone: [facility] Start: 03-18-2022 End: 03-18-[address] Martina Lal Work Phone: [facility] Work Phone: Start: 03-18-2022 End: 03-18-[address] Martina Lal Work Phone: [facility] Start: 03-18-2022 End: 03-18-[address] Martina Lal Work Phone: [facility] Start: 03-14-2022 End: 03-15-2022 Office outpatient visit 5 minutes Martina Lukasz DO Work Phone: [facility] Start: 03-14-2022 End: 03-14-2022 Office outpatient visit 10 minutes Martina Lukasz DO Work Phone: [facility] Start: 03-11-2022 End: 03-11-2022 Phone Encounter Martina Lukasz DO Work Phone: [facility] Start: 03-08-2022 End: 03-08-2022 Phone Encounter Martina Lukasz DO Work Phone: [facility] Start: 03-07-2022 End: 03-07-2022 Office outpatient visit 15 minutes Martina Lukasz DO Work Phone: [facility] Start: 03-05-2022 End: 03-05-2022 Phone Encounter Martina Lukasz DO Work Phone: [facility] Start: 02-27-2022 End: 02-27-2022 Phone Encounter Martina Lukasz DO Work Phone: [facility] Start: 02-25-2022 End: 02-25-[address] Martina Lal Work Phone: [facility] Start: 02-22-2022 Review Martina Thorpeo n DO Work Phone: [facility] Start: 02-18-2022 End: 02-18-[address] Martina Lal Work Phone: [facility] Start: 02-18-2022 End: 02-18-2022 Office outpatient visit 25 minutes Martina Lukasz DO Work Phone: [facility] Start: 12-31-2021 End: 12-31-2021 Office outpatient visit 25 minutes Martina Lukasz DO Work Phone: [facility] Start: 12-31-2021 Review Martina Maurilioo n DO Work Phone: [facility] Start: 12-19-2021 End: 12-19-2021 Lab Order Martina Lukasz DO Work Phone: [facility] Start: 11-09-2021 End: 11-09-[address] Martina Lal Work Phone: [facility]-Pulmonary Medicine [facility] Start: 10-25-2021 End: 10-25-2021 Phone Encounter Martinastew Lal DO Work Phone: [facility] Start: 10-23-2021 End: 10-23-[address] Martina Lal Work Phone: [facility]-Sleep Lab Start: 10-17-2021 End: 10-17-2021 Office outpatient visit 25 minutes Martina Luaksz DO Work Phone: [facility] Start: 10-12-2021 Non-patient / Non-visit Dr. Pascual Lal Work Phone: [facility] Start: 10-12-2021 End: 10-12-[address] Martina Lal Work Phone: [facility]-Cardiovascular Services Start: 10-10-2021 End: 10-10-2021 Office outpatient visit 15 minutes Martina Lukasz DO Work Phone: [facility] Start: 10-03-2021 End: 10-03-2021 Office outpatient visit 15 minutes Martina Lukasz DO Work Phone: [facility] Start: 09-27-2021 End: 09-27-2021 Phone Encounter Martina Lukasz DO Work Phone: [facility] Start: 09-26-2021 End: 09-26-2021 Office outpatient visit 40 minutes Martina Lukasz DO Work Phone: [facility] Start: 08-27-2021 End: 08-27-2021 Phone Encounter Martina Lukasz DO Work Phone: [facility] Start: 08-10-2021 End: 08-10-[address] Martina Lal Work Phone: [facility]-Laboratory, Specimen Start: 08-10-2021 End: 08-10-2021 Office outpatient visit 15 minutes Martina Lukasz DO Work Phone: [facility] Start: 08-09-2021 End: 08-09-2021 Office outpatient visit 15 minutes Martina Lukasz DO Work Phone: [facility] Start: 08-09-2021 Review Martina Maurilioo n DO Work Phone: [facility] Start: 07-10-2021 End: 07-10-2021 Annotation/Addendum Martina Lukasz DO Work Phone: [facility] Start: 05-31-2021 End: 05-31-2021 Lab Order Martina Lukasz DO Work Phone: [facility] Start: 05-28-2021 End: 05-28-2021 Office outpatient visit 25 minutes Martina Lukasz DO Work Phone: [facility] Start: 04-04-2021 End: 04-04-2021 Office outpatient visit 15 minutes Martina Lukasz DO Work Phone: [facility] Start: 03-20-2021 End: 03-20-2021 Office outpatient visit 25 minutes Martina Lukasz DO Work Phone: [facility] Start: 12-13-2020 End: 12-13-2020 Office outpatient visit 15 minutes Nicolasa Nazario [employer] Work Phone: [facility] Start: 12-13-2020 Review Nicolasa Martinezcristi [employer] OPERATOR Work Phone: [facility] Start: 09-17-2020 End: 09-17-2020 Annotation/Addendum Nicolasa Aravind [facility] Staff Consultant dc Medicine Start: 09-15-2020 End: 09-15-2020 Office outpatient new 45 minutes Nicolasa Aravind [facility] Internal Medicine Start: 01-27-2018 End: 01-27-2018 Ambulatory CELIO DPM NALINI Patel [facility] Procedures Date Procedure Procedure Detail Performing Clinician Start: 12-24-2024 X-ray of chest, PA and lateral views Dr. Martina Lal DO Work Phone: Start: 10-12-2024 Serum inorganic phosphate measurement Dr. Martina Lal DO Work Phone: Start: 10-12-2024 Urine microalbumin/creatinine ratio measurement Dr. Martina Lal DO Work Phone: Start: 10-12-2024 Urnls dip stick/tablet reagent auto microscopy Dr. Martina Lal DO Work Phone: Start: 10-12-2024 Vitamin D, 25-hydroxy measurement Dr. Martina Lal DO Work Phone: Comment on above: Vitamin D StatusDeficiency: <20 ng/mL (5 0nmol/L)Insufficiency: 20-30 ng/mL (50-75 nmol/L)Sufficiency: 30-100 ng/mL (75-250 nmol/L)Toxicity: >100 ng/mL (>250 nmol/L) Start: 10-07-2024 CT of abdomen without contrast Dr. Martina Lal DO Work Phone: Start: 10-07-[address] Martina Lal DO Work Phone: Start: 09-15-2023 MRI of abdomen without contrast Dr. Martina Lal Work Phone: Start: 09-03-2023 X-ray of lumbar spine, two or three views Dr. Martina Lal Work Phone: Start: 04-08-2023 End: 04-14-2023 MR/BMS.BVS Procedure Note: See Note; NOTES: [facility] [address] [place] [address] OFFICE VISIT Date of Service: 04/08/23 MR#: [id number] Acct: [id number] Name: DEBBIE MIRELES Rep #: [id number] : 1935 Provider: Louise Clements rn, PA Age/Sex: 87/F Location: [facility] Status: Signed Intake Vital Signs 03/03/23 13:39 04/08/23 14:59 Height 5 ft 1 in Weight: 211 lb BMI 39.9 BP 159/67 H 182/69 H Blood Pressure Location Lt brachial Lt brachial Position Sitting Sitting Respiration 18 16 Pulse 66 66 Pulse Source Auscultation Monitor Temp 98 F Temp Source Temporal Pulse Oximetry (%) 97 Oxygen Delivery Method room air Intake Visit Reasons: Consult-CAROTID Chief Complaint: adrenal mass Is patient in pain?: No Allergies morphine Adverse Reaction (Intermediate, Verified 04/08/23 15:01) mental status change meperidine HCl [From Demerol] Adverse Reaction (Mild, Verified 04/08/23 15:01) mental status change Medications latanoprost 0.005 % eye drops (Xalatan) 1 drp EACH EYE QHS Cataracts/Dry eye 07/29/14 [History Confirmed 04/08/23] cholecalciferol (vitamin D3) 125 mcg (5,000 unit) capsule 125 mcg PO DAILY SUPPLEMENT 04/01/22 [History Confirmed 04/08/23] liver supplement 1 cap PO QHS SUPPLEMENT 04/01/22 [History Confirmed 04/08/23] Colloidal Silver 2 tsp PO DAILY SUPPLEMENT 06/11/22 [History Confirmed 04/08/23] cinnamon bark 500 mg capsule (Cinnamon) 500 mg PO DAILY SUPPLEMENT 06/11/22 [History Confirmed 04/08/23] acetaminophen 500 mg tablet 1,000 mg PO Q6H PRN Pain 07/02/22 [History Confirmed 04/08/23] amlodipine 10 mg tablet 10 mg PO DAILY blood pressure 07/02/22 [History Confirmed 04/08/23] ascorbic acid (vitamin C) 500 mg tablet 500 mg PO BID supplement 07/02/22 [History Confirmed 04/08/23] nateglinide 60 mg tablet 60 mg PO TID dm 07/13/22 [History Confirmed 04/08/23] furosemide 20 mg tablet 20 mg PO 09/02/22 [History Confirmed 04/08/23] lisinopril 30 mg tablet 30 mg PO DAILY 02/28/23 [History Confirmed 04/08/23] Andrographis xt 187.5 mg-Isatis root 150 mg-licorice 79.2 mg capsule 1 cap PO DAILY 03/03/23 [History Confirmed 04/08/23] aspirin 81 mg chewable tablet 81 mg PO .[facility] 03/03/23 [History Confirmed 04/08/23] clonidine 0.1 mg/24 hr weekly transdermal patch ([id number]) 1 patch transdermal QWEEK #4 ea 03/03/23 [Rx Confirmed 04/08/23] grape seed extract 50 mg capsule 50 mg PO ONCE 03/03/23 [History Confirmed 04/08/23] magnesium oxide 400 mg PO DAILY 03/03/23 [History Confirmed 04/08/23] omega-3 fatty acids-fish oil 300 mg-1,000 mg capsule 1 cap PO DAILY SUPPLEMENT 03/03/23 [History Confirmed 04/08/23] atorvastatin 40 mg tablet 40 mg PO QHS #30 tabs 04/08/23 [Rx Confirmed 04/08/23] berberine-herbal comb no.18 capsule cap PO 04/08/23 [History Confirmed 04/08/23] curcumin-phosphatidylcholine 500 mg capsule mg PO 04/08/23 [History Confirmed 04/08/23] PFSH Medical History Arthritis Bilateral carotid artery stenosis Bilateral extracranial carotid artery stenosis BMI 40.0-44.9, adult Body aches Breast abscess Breast cancer, right breast ( 03/2022) CHF (congestive heart failure) Chronic kidney disease, stage 3a Cough Debility Diabetes mellitus Diastolic congestive heart failure Encounter for education FTT (failure to thrive) in adult GERD (gastroesophageal reflux disease) Glaucoma Hiatal hernia History of IBS HLD (hyperlipidemia) HTN (hypertension) Hyperlipidemia Hypertension Hypertension Hypoxia Hypoxia Labile blood pressure Labile blood pressure Left adrenal mass Left adrenal mass Malaise Nocturnal hypoxia ABDI (obstructive sleep apnea) ABDI (obstructive sleep apnea) PONV (postoperative nausea and vomiting) Recurrent incisional hernia with incarceration Right flank pain Shakiness Stage 3a chronic kidney disease (CKD) Type 2 diabetes mellitus Uncontrolled hypertension Wears glasses Wears hearing aid Surgical History History of cataract extraction History of cholecystectomy History of colonoscopy History of hysterectomy History of right breast biopsy ( 03/2022) History of umbilical hernia repair Family History Brother Pancreatic cancer Diabetes Heart disease Lung cancer Hypertension Colon cancer Mother Hypertension Brother No problems noted. 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 She is referred from the G. She is accompanied to the appointment today by her son. Her daughter was present via telephone. Patient has known history of bilateral carotid artery stenosis, no prior surgical interventions. PCP/[facility] have been monitoring with periodic duplexes. She denies any history of known CVA/TIA. She denies any episodes of unilateral weakness or numbness/tingling, facial drooping, speech difficulties, vision loss or abnormalities. She is currently taking ASA on MWF. Denies history of GI bleed or other side effect from ASA. Takes only three times a week because she read that not good to take daily. 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 She is s/p partial mastectomy/lumpectomy, she was negative for evidence of metastasis. No chemo/radiation. She was recommended to have 5 years of hormone therapy, but declined as she does not wish to pursue further treatment. She has been evaluated for an adrenal mass by endocrinology, monitoring with imaging. She follows with pulmonology for ABDI, uses CPAP. She follows with [facility]/Dr. Carrizales for poorly controlled HTN, they are working on adjusting medications. She does take a lot of different supplements/herbal remedies and has several questions regarding these. ROS General General: Yes breast cancer; No weight change, appetite, fatigue, colon cancer or weakness HEENT HEENT: No difficulty swallowing, eye injury, eye surgery, swollen glands or hoarseness Endo Endocrine: Yes diabetes mellitus; No thyroid disease, thyroid cancer, Hair loss, heat intolerance or cold intolerance Skin Skin: No rash or changing moles Musc Musculoskeletal: Yes back problems and arthritis; No rheumatoid arthritis, gout or joint pain Cardio Cardiovascular: Yes high blood pressure; No murmur, pacemaker, heart disease, atrial fibrillation, heart attack, heart stent, palpitations, shortness of breat with exertion or chest pain Psych Psychiatric: No depression, anxiety or hearing voices Resp Respiratory: No shortness of breath, Yes sleep apnea, No cough, No COPD, No asthma, No emphysema and No wheezing Gastro Gastrointestinal: No abdominal pain, No nausea or vomiting, No diarrhea, No constipation, No blood in stool, No acid reflux, No hemorrhoids, No ulcers, No gallbladder problem and No black,tarry stools Star Hematologic: No blood thinners, No blood disorders, No bleeding, No anemia and No blood clots Neuro Neurologic: No system reviewed and no additional complaints, except as documented, No as per HPI, No abnormal gait, No abnormal hearing, No abnormal movements, No abnormal speech, No behavioral changes, No burning sensations, No confusion, No convulsions, No disequilibrium, No dizziness, No localized weakness, No frequent falls, No headache(s), No lack of coordination, No loss of vision, No memory loss, No numbness, No other visual disturbances, No radicular pain, No restless legs, No sensory deficit, No syncope, Yes tingling, No tremor(s), No weakness and No other Exam Const General: cooperative, healthy appearing, comfortable and no acute distress Orientation: alert, awake and oriented x3 [facility] Head: normocephalic and atraumatic Ears: hearing grossly normal bilaterally and external ears normal Nose: external nose normal Eyes General: appearance normal, both eyes and all related structures EOM: EOM intact bilaterally Neck Neck: normal visual inspection and trachea midline Carotids: bruit Resp Effort Inspection: normal respiratory effort, able to speak in complete sentences, symmetric chest movement, no audible wheezes, not labored, no retractions and no stridor Auscultation: clear to auscultation bilaterally Cardio Rate: regular rate Rhythm: regular rhythm Heart Sounds: no murmurs Skin General: no rashes or lesions noted Trauma: no lacerations or abrasions Wounds: no wounds Neuro General: patient alert, patient awake, patient oriented x3, moves all extremities and CN's II-XI intact bilaterally Speech: speech normal Psych Appearance: grossly normal Affect: normal affect Speech and Movement: speech and movement normal Attitude: cooperative Coding Level of Care Code Off vis,new,level 4 Diagnoses Left carotid artery stenosis I65.22 Time Spent (min) 60 Assessment and Plan Assessment and Plan (1) Left carotid artery stenosis: Status: Acute Comment: Carotid duplex 03/11/23: Severe L ICA stenosis >70%, max. velocity at prox ICA 2531/55.9 Mild R ICA stenosis <50% Orders: Orders CTA Head AND Neck W/ Contrast 04/09/23 I65.22 - Occlusion and stenosis of left carotid artery Medications: New atorvastatin 40 mg PO QHS 30 tabs 2RF Plan She has asymptomatic L ICA stenosis. I discussed with patient and her family that in an asymptomatic patient, 80% stenosis or greater is the point at which surgery is indicated/recommended. Her max L ICA velocity of 253 typically correlates to <80% stenosis. I recommend a CTA Neck to correlate these duplex results, if she thinks she would want to pursue surgical intervention as indicated. If she would not want to pursue surgery regardless, then no benefit from obtaining the CTA and would proceed with medical therapy alone. We discussed the available surgical options in general including risk, benefit, and recovery of each. After discussion, she indicates that while overall she wants to minimize interventions, she would consider surgical intervention to reduce risk of stroke. Therefore, will obtain a CTA Neck to correlate carotid duplex results. Her kidney function is sufficient to receive IV dye, she was counseled to ensure adequate oral hydration before and after the scan. To maximize medical management, I recommend ASA 81mg taken daily and I recommend addition of atorvastatin 40mg daily. She is agreeable to this. Pending results of CTA may consider addition of Plavix or Brilinta for DAPT. She and her family had several questions regarding the efficacy/safety of supplements. I am unfamiliar with many of the supplements she presented today. I discussed with them that while some people find benefit from supplements/herbal remedies, the production of these products is not monitored by the FDA and so safety and efficacy are not well defined or guaranteed. If she continues to utilize supplements I strongly advise ensuring she is obtaining them from a trusted source and to consult with her pharmacist regarding potential interactions with her current medications. ASA and atorvastatin which have both been well studied to provided benefit in patients with carotid artery disease and I do not recommend or advise any supplements/herbal remedies in place of these or her other medications. They acknowledged understanding. She will return after imaging to discuss results and recommended management/potential surgical options with Dr. Trimble. 04/11/23 1215 <Electronically signed by Louise WASHINGTON> Date Louise WASHINGTON 04/14/23 1014<Electronically signed by Willy Trimble MD> Cosigner Signature: Date (if applicable) Willy Trimble MD CC: Martina Lal DO Work Phone: Start: 03-11-2023 End: 03-11-2023 Carotid Duplex Ultrasound Procedure Note: See Note; NOTES: [facility] [address] [place] [address] Carotid Duplex Ultrasound 03/11/23 1232 MR#: [id number] Acct: [id number] Name: DEBBIE MIRELES Rep #: [id number] : 1935 87 From: Willy Trimble MD Attending Dr: Dr. Angely Carrizales MD Status: REG CLI Ordering Dr: Angely Carrizales MD Date: 03/11/23 Location: [facility] Sex: F C Admitted: Reason For Study: carotid stenosis Rt. Velocities/BP Lt. Velocities/BP Prox CCA 91.6/9.1 cm/sec. Prox CCA 72.8/9.0 cm/sec. Mid CCA 90.5/12.4 cm/sec. Mid CCA 87.6/11.4 cm/sec. Dist CCA 99.2/12.4 cm/sec. Dist CCA 55.3/11.3 cm/sec. Prox ICA 85.1/13.9 cm/sec. Prox ICA 253.1/55.9 cm/sec. Mid ICA 113.3/16.3 cm/sec. Mid ICA 243.4/52.7 cm/sec. Dist ICA 121.9/20.0 cm/sec. Dist ICA 154.0/18.8 cm/sec. Rt. ICA/CCA = 1.3. Lt. ICA/CCA = 2.9. Prox ECA 437.8/20.0 cm/sec. Prox ECA 295.4/12.9 cm/sec. Rt. Vert. 70.4/12.6 cm/sec. Lt. Vert. 59.7/8.0 cm/sec. Right Extracranial There is homogeneous, smooth atherosclerotic plaque noted in the right common carotid artery. There is heterogeneous, irregular atherosclerotic plaque noted in the right internal [...] the left vertebral artery. Procedure Carotid Duplex 85694. This is a Carotid Duplex examination using B-mode, color flow and specral Doppler. The exam was diagnostic. Exam performed in department. Prelim called to the . VL/Carotid Duplex Ultrasound Interpretation Summary Mild (<50%) stenosis right extracranial internal carotid. Severe (>70%) stenosis left extracranial internal carotid. Patent and antegrade vertebrals bilaterally. Ordering Physician: Angely Carrizales Performed By: Logan Pro RVT 03/11/23 2250 Date Willy Trimble MD CC: Dr. Angely Carrizales MD; Dr. Martina Lal DO Date Dictated: 03/11/23 1232 Date Transcribed: 03/11/23 1725 Assistant Project Manager: Signed Martina Lal DO Work Phone: Start: 03-03-2023 End: 03-03-2023 Cardiology Visit Report Procedure Note: See Note; NOTES: [facility] [address] [place], [place] [address] OFFICE VISIT Date of Service: 03/03/23 MR#: [id number] Acct: [id number] Name: DEBBIE MIRELES Rep #: [id number] : 1935 Provider: Dr. Angely Carrizales MD Age/Sex: 87/F Location: [facility] Status: Signed HPI HPI History of Present Illness Details: This patient has history of heart failure with preserved ejection fraction. Also history of hypertension and carotid artery stenosis. Denies any complaints today. Intake Vital Signs 12/02/22 13:46 03/03/23 13:39 Height 5 ft 1 in 5 ft 1 in Weight: 211 lb 211 lb BMI 39.9 39.9 BP 136/55 H 159/67 H Blood Pressure Location Lt brachial Lt brachial Position Sitting Sitting Respiration 18 18 Pulse 54 L 66 Pulse Source Monitor Auscultation Temp 97.2 F L Temperature Source Temporal Artery Pulse Oximetry (%) 94 Oxygen Delivery Method room air Intake Visit Reasons: 6 m fu PREV PFM PT Wardrobe Mistress Required: No Accompanied by: Self Is patient in pain?: No Allergies morphine Adverse Reaction (Intermediate, Verified 03/03/23 13:39) mental status change meperidine HCl [From Demerol] Adverse Reaction (Mild, Verified 03/03/23 13:39) mental status change Medications latanoprost 0.005 % eye drops (Xalatan) 1 drp EACH EYE QHS Cataracts/Dry eye 07/29/14 [History Confirmed 03/03/23] cholecalciferol (vitamin D3) 125 mcg (5,000 unit) capsule 125 mcg PO DAILY SUPPLEMENT 04/01/22 [History Confirmed 03/03/23] liver supplement 1 cap PO QHS SUPPLEMENT 04/01/22 [History Confirmed 02/28/23] Colloidal Silver 2 tsp PO DAILY SUPPLEMENT 06/11/22 [History Confirmed 03/03/23] cinnamon bark 500 mg capsule (Cinnamon) 500 mg PO DAILY SUPPLEMENT 06/11/22 [History Confirmed 03/03/23] acetaminophen 500 mg tablet 1,000 mg PO Q6H PRN Pain 07/02/22 [History Confirmed 02/28/23] amlodipine 10 mg tablet 10 mg PO DAILY blood pressure 07/02/22 [History Confirmed 03/03/23] ascorbic acid (vitamin C) 500 mg tablet 500 mg PO BID supplement 07/02/22 [History Confirmed 03/03/23] nateglinide 60 mg tablet 60 mg PO TID dm 07/13/22 [History Confirmed 03/03/23] furosemide 20 mg tablet 20 mg PO 09/02/22 [History Confirmed 03/03/23] clonidine HCl 0.1 mg tablet 0.1 mg PO DAILY PRN SBP>160 x 2 readings 30 min apart 09/04/22 [History Confirmed 03/03/23] lisinopril 30 mg tablet 30 mg PO DAILY 02/28/23 [History Confirmed 03/03/23] Andrographis xt 187.5 mg-Isatis root 150 mg-licorice 79.2 mg capsule 1 cap PO DAILY 03/03/23 [History Confirmed 03/03/23] aspirin 81 mg chewable tablet 81 mg PO [facility] 03/03/23 [History Confirmed 03/03/23] grape seed extract 50 mg capsule 50 mg PO ONCE 03/03/23 [History Confirmed 03/03/23] magnesium oxide 400 mg PO DAILY 03/03/23 [History Confirmed 03/03/23] omega-3 fatty acids-fish oil 300 mg-1,000 mg capsule 1 cap PO DAILY SUPPLEMENT 03/03/23 [History Confirmed 02/28/23] Ejection fraction %: 60 to 64 PFSH Medical History (Updated 03/03/23 @ 14:[address] Angely Carrizales MD) Arthritis Bilateral carotid artery stenosis Bilateral extracranial carotid artery stenosis BMI 40.0-44.9, adult Body aches Breast abscess Breast cancer, right breast ( 03/2022) CHF (congestive heart failure) Chronic kidney disease, stage 3a Cough Debility Diabetes mellitus Diastolic congestive heart failure Encounter for education FTT (failure to thrive) in adult GERD (gastroesophageal reflux disease) Glaucoma Hiatal hernia History of IBS HLD (hyperlipidemia) HTN (hypertension) Hyperlipidemia Hypertension Hypertension Hypoxia Hypoxia Labile blood pressure Labile blood pressure Left adrenal mass Left adrenal mass Malaise Nocturnal hypoxia ABDI (obstructive sleep apnea) ABDI (obstructive sleep apnea) PONV (postoperative nausea and vomiting) Recurrent incisional hernia with incarceration Right flank pain Shakiness Stage 3a chronic kidney disease (CKD) Type 2 diabetes mellitus Uncontrolled hypertension Wears glasses Wears hearing aid Surgical History History of cataract extraction History of cholecystectomy History of colonoscopy History of hysterectomy History of right breast biopsy ( 03/2022) History of umbilical hernia repair Family History Brother Pancreatic cancer Diabetes Heart disease Lung cancer Hypertension Colon cancer Mother Hypertension Brother No problems noted. 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 housing: house Smoking Status: Never smoker alcohol intake: never substance use type: does not use what type of physical activity do you participate in: none seatbelt use: always do you feel safe at home: Yes ROS Const Const: Positive for daytime sleepiness (occasionally) and difficulty sleeping; Negative for fatigue, weakness, headache(s), frequent falls or excessive sweating Eyes Eyes: Negative for loss of peripheral vision, transient loss of vision, blurry vision, double vision or tunnel vision ENT ENT: Positive for balance problems; Negative for headache(s), dizziness or Nosebleed/epistaxis Cardio Chest Pain: No Palpitations: No Edema: Bilateral Muscle aches with walking: None Resp Respiratory: Positive for SOB with activity; Negative for SOB at rest, SOB orthopnea SOB lying down, Cough or paroxysmal nocturnal dyspnea GI GI: Negative nausea, vomiting, heartburn or black,tarry stools : Negative for hematuria Musc Musc: Positive for joint pain and balance problems; Negative for muscle aches/ myalgia or muscle weakness Skin Skin: Negative non-healing lesions, rash or unusual bruising Neuro Neuro: Negative for dizziness, lightheadedness, near syncope, syncope, frequent falls, headache(s), weakness, blurry vision, double vision or lack of coordination Star Hematologic/Lymphatic: Negative for easy bleeding or easy bruising Endo Endo: Negative for fatigue, excessive sweating or increased thirst/drinking Psych Psych: Negative for anxiety or depression Allergy Allergy/Immunology: Negative for hives and Negative for rash Cardiology Exam Const Appearance: comfortable and no acute distress Nutritional Appearance: well nourished Neck Neck: no JVD Bilateral carotid artery bruit, louder on the right side. Chest Auscultation: Bilateral: Clear to Auscultation Cardio Rate: regular rate Rhythm: regular rhythm Heart sounds: S1 normal and S2 normal Neuro General: patient alert, patient awake and patient oriented x3 Extremities Lower Extremity Edema: None: Bilateral Supplemental Info Supplemental Information Echocardiogram 05/20/2022: Interpretation Summary Left ventricular systolic function is normal. The estimated ejection fraction is 60 %. Normal size and thickness. Moderate concentric left ventricular hypertrophy. Stage 2 diastolic dysfunction. Carotid Duplex 10/12/2021: Interpretation Summary Mild irregular plaque of the proximal right internal carotid artery with less than 50% stenosis Greater than 50% stenosis right external carotid artery Irregular calcific plaque left common carotid and proximal internal carotid artery. 50 to 69% stenosis of the left internal carotid artery. Greater than 50% stenosis left external carotid artery Patent and antegrade vertebral arteries bilaterally Findings appear similar to the previous examination of June 19, 2018 Labs: No Data to Display Diagnostics: No Data to Display Pulmonary: No Data to Display Past Visits: Cardiology Visit 03/03/23 Assessment and Plan Assessment and Plan (1) (HFpEF) heart failure with preserved ejection fraction: Status: Chronic Plan: Functional class II. Continue Lasix. (2) Hypertension: Status: Chronic Plan: Blood pressure elevated. Patient has been taking clonidine 0.1 mg as needed rather frequently. Will change to Catapres 0.1 mg patch every week. (3) Bilateral carotid artery stenosis: Status: Chronic Plan: Repeat carotid Doppler. (4) Diabetes mellitus: Status: Chronic Plan: Continue to manage as per primary care physician. Lipid management as per primary care physician. Recommend target LDL cholesterol less than 100 mg/dL. Plan Details Follow Up: 6 Months Coding Level of Care Code Off vis,est,level 4 Diagnoses (HFpEF) heart failure with preserved ejection fraction I50.30 Hypertension I10 Bilateral carotid artery stenosis I65.23 Diabetes mellitus E11.9 Coding Level of Care Code Off vis,est,level 4 Diagnoses (HFpEF) heart failure with preserved ejection fraction I50.30 Hypertension I10 Bilateral carotid artery stenosis I65.23 Diabetes mellitus E11.9 03/03/23 1415 <Electronically signed by Angely Carrizales MD> Date Angely Carrizales MD Cosigner Signature: Date (if applicable) CC: Dr. Martina Lal, DO Martina Lal DO Work Phone: Start: 12-02-2022 End: 12-03-2022 Pulmonary Visit Report Procedure Note: See Note; NOTES: [facility] [place] [address] [place] [address] OFFICE VISIT Date of Service: 12/02/22 MR#: [id number] Acct: [id number] Name: DEBBIE MIRELES Rep #: [id number] : 1935 Provider: Dr. Tk Varela MD Age/Sex: 87/F Location: [facility] Status: Signed Assessment and Plan Assessment and Plan (1) ABDI (obstructive sleep apnea): Status: Acute (2) BMI 40.0-44.9, adult: Status: Acute Plan Patient appears to be doing well from an ABDI standpoint. There is no indication for a titration study at this time. Discussed with the patient about possible CPAP class for better mask fit, but patient feels that she is doing okay on the current mask if I have to use it. Did discuss the role of weight loss and the overall disease plan of care. Patient voiced understanding. Given stability, will extend to 6-month follow-ups. Patient was educated on reasons to call in the interim. Continue current therapy. Plan Details Follow Up: 6 Months ([facility]) HPI 3 M FU Details: Patient is an 87-year-old female, currently under the care of Dr. Lal who presents for evaluation secondary to obstructive sleep apnea. Since last visit, patient denies any ER visits, hospitalizations or prednisone burst. Patient overall feels subjectively unchanged compared to previous. Patient has been doing well from an ABDI standpoint. Patient currently uses a fullface interface. Patient denies any pain at the interface site, epistaxis or hoarseness. Patient denies any morning headache. Patient reports dry mouth in the morning. Patient wakes up feeling refreshed and takes naps rarely. Patient does typically use their Pap machine with these naps. Patient has no respiratory complaints at this time. Patient has not had any change in exercise tolerance. Patient is not reporting any nocturnal cough. Patient has no constitutional symptoms such as fever, chills, nausea or vomiting. No lower extremity edema has been reported. Review of systems otherwise negative from a constitutional, HEENT, respiratory, cardiovascular, GI, genitourinary, musculoskeletal, skin, neurologic, psychiatric and hematologic system unless stated above. Documentation personally reviewed with the patient Compliance report (November 2022): The patient was compliant 100% of the time for an average use of 6 hours 35 minutes on AutoSet with a median pressure of 8.8 cm of water, residual AHI of 1.8 and fairly controlled leak. Intake Vital Signs 07/18/22 08:01 09/10/22 07:53 12/02/22 05:51 12/02/22 13:46 Height 5 ft 1 in 5 ft 1 in 5 ft 1 in 5 ft 1 in Weight: 95.708 kg BMI 39.9 BP 136/55 H Blood Pressure Location Lt brachial Position Sitting Respiration 18 Pulse 54 L Pulse Source Monitor Temp 36.2 C L Temperature Source Temporal Artery Pulse Oximetry (%) 94 Oxygen Delivery Method room air Intake Visit Reasons: 3 M FU Chief Complaint: adrenal mass Wardrobe Mistress Required: No DME Vendor: pap-- Luis Eare Accompanied by: Self Is patient in pain?: No Allergies morphine Adverse Reaction (Intermediate, Verified 12/02/22 13:49) mental status change meperidine HCl [From Demerol] Adverse Reaction (Mild, Verified 12/02/22 13:49) mental status change Medications latanoprost 0.005 % eye drops (Xalatan) 1 drp EACH EYE QHS Cataracts/Dry eye 07/29/14 [History Confirmed 12/02/22] omega-3 fatty acids-fish oil 300 mg-1,000 mg capsule 1 ea PO DAILY SUPPLEMENT 07/29/14 [History Confirmed 12/02/22] aspirin 81 mg chewable tablet 81 mg PO DAILY HEART HEALTH 06/26/18 [History Confirmed 12/02/22] cholecalciferol (vitamin D3) 125 mcg (5,000 unit) capsule 125 mcg PO DAILY SUPPLEMENT 04/01/22 [History Confirmed 12/02/22] liver supplement 1 cap PO QHS SUPPLEMENT 04/01/22 [History Confirmed 12/02/22] Colloidal Silver 2 tsp PO DAILY SUPPLEMENT 06/11/22 [History Confirmed 12/02/22] cinnamon bark 500 mg capsule (Cinnamon) 500 mg PO DAILY SUPPLEMENT 06/11/22 [History Confirmed 12/02/22] acetaminophen 500 mg tablet 1,000 mg PO Q6H PRN Pain 07/02/22 [History Confirmed 12/02/22] amlodipine 10 mg tablet 10 mg PO DAILY blood pressure 07/02/22 [History Confirmed 12/02/22] ascorbic acid (vitamin C) 500 mg tablet 500 mg PO BID supplement 07/02/22 [History Confirmed 12/02/22] melatonin 3 mg tablet 3 mg PO QHS PRN Sleep 07/13/22 [History Confirmed 12/02/22] nateglinide 60 mg tablet 60 mg PO TID dm 07/13/22 [History Confirmed 12/02/22] lisinopril 20 mg tablet 30 mg PO DAILY #45 tabs 07/17/22 [Rx Confirmed 12/02/22] furosemide 20 mg tablet 20 mg PO 09/02/22 [History Confirmed 12/02/22] clonidine HCl 0.1 mg tablet 0.1 mg PO DAILY PRN SBP>160 x 2 readings 30 min apart 09/04/22 [History Confirmed 12/02/22] [facility] Medical History (Reviewed 09/10/22 @ 10:27 by Zelda Mcdaniels 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, 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-C) Arthritis Bilateral carotid artery stenosis Bilateral extracranial carotid artery stenosis Breast abscess Breast cancer, right breast ( 03/2022) CHF (congestive heart failure) Chronic kidney disease, stage 3a Diastolic congestive heart failure GERD (gastroesophageal reflux disease) Hiatal hernia History of IBS HLD (hyperlipidemia) HTN (hypertension) Hyperlipidemia Hypertension Hypertension Hypoxia Labile blood pressure Left adrenal mass Left adrenal mass ABDI (obstructive sleep apnea) PONV (postoperative nausea and vomiting) Shakiness Stage 3a chronic kidney disease (CKD) Type 2 diabetes mellitus Uncontrolled hypertension Wears glasses Wears hearing aid Surgical History (Reviewed 09/10/22 @ 10:27 by Zelda Mcdaniels 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, 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-C) History of cataract extraction History of cholecystectomy History of colonoscopy History of hysterectomy History of right breast biopsy ( 03/2022) History of umbilical hernia repair Family History Brother Pancreatic cancer Diabetes Heart disease Lung cancer Hypertension Colon cancer Mother Hypertension Brother No problems noted. Brother Cancer Brother Sleep apnea Myocardial infarction Brother Sleep apnea Other Arthritis Asthma Social History (Reviewed 09/10/22 @ 10:27 by Zelda Mcdaniels 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, 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-C) household members: 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 housing: house Smoking Status: Never smoker alcohol intake: never substance use type: does not use what type of physical activity do you participate in: none seatbelt use: always do you feel safe at home: Yes Exam Const Constitutional: Positive conversant, cooperative, in no acute respiratory distress, healthy appearing, well developed, well nourished, good hygiene and obese; Negative wearing supplemental oxygen Head Head: Yes normocephalic and Yes atraumatic Eyes Eye: Positive clear conjunctiva; Negative nystagmus Ears Ear: Positive hard of hearing and external ears normal Nose Nose: Yes external nose normal Mouth Mouth: Positive oral mucosae normal Neck Neck: Positive normal visual inspection, thick neck, full ROM, trachea midline and female neck greater than 37 cm (15 in) Chest Wall Chest: Positive normal inspection of the chest and symmetric chest movement; Negative increased A/P diameter Resp lung sounds: Positive clear to auscultation, good air exchange, normal expiratory time and normal respiratory effort; Negative diminished lung sounds, wheezes, rhonchi or rales Cardio Cardiac: Positive regular rate, regular rhythm, S1 normal and S2 normal; Negative murmur GI GI: Positive normal to inspection and obese Musc Musculoskeletal: Positive using an assistive device for ambulation, ROM normal and kyphosis; Negative scoliosis Skin Pulmonary Skin Exam: Positive intact; Negative lesion, rash or ulcers Extremities Extremities: No clubbing, No cyanosis and No edema Neuro Neurologic: Yes no focal neuro deficits, Yes conversant, Yes cooperative, Yes normal cognition, Yes normal coordination, Yes normal concentration and Yes understands questions Psych Appearance: Positive grossly normal, eye contact and well kempt Mental Status: Positive mental status grossly normal Mood: Positive congruent mood Affect: Positive normal affect Coding Level of Care Code Off vis,est,level 3 Diagnoses ABDI (obstructive sleep apnea) G47.33 BMI 40.0-44.9, adult Z68.41 12/03/22 0535 <Electronically signed by Tk Varela MD> Date Tk Varela MD Cosigner Signature: Date (if applicable) CC: Dr. Martina Lal, DO Martina Lal DO Work Phone: Start: 09-10-2022 End: 09-10-2022 Pulmonary Visit Report Procedure Note: See Note; NOTES: [facility] [address] [place] [address] OFFICE VISIT Date of Service: 09/10/22 MR#: [id number] Acct: [id number] Name: DEBBIE MIRELES Jana Rep #: [id number] : 1935 Provider: ERIKA Mcdaniels Age/Sex: 87/F Location: [facility] Status: Signed Assessment and Plan Assessment and Plan (1) ABDI (obstructive sleep apnea): Status: Acute (2) BMI 40.0-44.9, adult: Status: Acute Plan She is using and benefiting from Pap therapy. No indication for titration study at this time. Continue to encourage weight loss. Contact the office for any new or worsening symptoms in the meantime. Follow-up in [address] Varela. Plan Details Follow Up: 6 Months ([facility]) HPI CPAP Chief Complaint: compliace HPI Comments Details: This patient presents to the office today for follow-up of her obstructive sleep apnea. She is ambulatory and on room air. She has not been seen in the ED/Urgent care for any respiratory issues since her last office visit. She has not required any antibiotics or prednisone for breathing problems. She continues with Lasix alternating 20 mg and 40 mg every other day. She has shortness of breath on exertion only. She denies any cough, sputum production or hemoptysis. She also denies any wheezing, chest tightness, chest pain or palpitations. She has not had any fever, chills or body aches. She is noticing that she feels more rested. She is not requiring naps. She does have dry mouth daily. She denies any headaches or excessive nocturia. Compliance report for the past 30 days shows 100% compliance with an average use of 7 hours 11 minutes per night. Current setting is 5 to 15 cm of water, average pressures being utilized is 10.3 to 14.5 cm of water. Residual AHI 5.8 events per hour. Leaks do not appear to be an issue. Intake Vital Signs 07/18/22 08:01 09/10/22 07:53 Height 5 ft 1 in 5 ft 1 in Weight: 216 lb BMI 40.8 BP 164/66 H Blood Pressure Location Lt brachial Position Sitting Respiration 17 Pulse 72 Pulse Source Monitor Temp 97.0 F L Temperature Source Temporal Artery Pulse Oximetry (%) 93 Oxygen Delivery Method room air Intake Visit Reasons: CPAP Chief Complaint: adrenal mass Wardrobe Mistress Required: No DME Vendor: [facility] Accompanied by: Self Is patient in pain?: No Allergies morphine Adverse Reaction (Intermediate, Verified 09/10/22 10:18) mental status change meperidine HCl [From Demerol] Adverse Reaction (Mild, Verified 09/10/22 10:18) mental status change Medications latanoprost 0.005 % eye drops (Xalatan) 1 drp EACH EYE QHS Cataracts/Dry eye 07/29/14 [History Confirmed 09/10/22] omega-3 fatty acids-fish oil 300 mg-1,000 mg capsule 1 ea PO DAILY SUPPLEMENT 07/29/14 [History Confirmed 09/10/22] aspirin 81 mg chewable tablet 81 mg PO DAILY HEART HEALTH 06/26/18 [History Confirmed 09/10/22] cholecalciferol (vitamin D3) 125 mcg (5,000 unit) capsule 125 mcg PO DAILY SUPPLEMENT 04/01/22 [History Confirmed 09/10/22] liver supplement 1 cap PO QHS SUPPLEMENT 04/01/22 [History Confirmed 09/10/22] Colloidal Silver 2 tsp PO DAILY SUPPLEMENT 06/11/22 [History Confirmed 09/10/22] cinnamon bark 500 mg capsule (Cinnamon) 500 mg PO DAILY SUPPLEMENT 06/11/22 [History Confirmed 09/10/22] acetaminophen 500 mg tablet 1,000 mg PO Q6H PRN Pain 07/02/22 [History Confirmed 09/10/22] amlodipine 10 mg tablet 10 mg PO DAILY blood pressure 07/02/22 [History Confirmed 09/10/22] ascorbic acid (vitamin C) 500 mg tablet 500 mg PO BID supplement 07/02/22 [History Confirmed 09/10/22] lorazepam 0.5 mg tablet 0.5 mg PO DAILY PRN Anxiety 07/02/22 [History Confirmed 09/10/22] polyethylene glycol 3350 17 gram oral powder packet 17 g PO QHS STOOL 07/02/22 [History Confirmed 09/10/22] melatonin 3 mg tablet 3 mg PO QHS PRN Sleep 07/13/22 [History Confirmed 09/10/22] nateglinide 60 mg tablet 60 mg PO TID dm 07/13/22 [History Confirmed 09/10/22] potassium chloride 20 mEq tablet,extended release 20 meq PO DAILY supplement 07/14/22 [History Confirmed 09/10/22] lisinopril 20 mg tablet 30 mg PO DAILY #45 tabs 07/17/22 [Rx Confirmed 09/10/22] pantoprazole 40 mg tablet,delayed release 40 mg PO DAILY #30 tabs 07/17/22 [Rx Confirmed 09/10/22] furosemide 20 mg tablet 20 mg PO 09/02/22 [History Confirmed 09/10/22] clonidine HCl 0.1 mg tablet 0.1 mg PO DAILY PRN SBP>160 x 2 readings 30 min apart 09/04/22 [History Confirmed 09/10/22] [facility] Medical History (Reviewed 09/10/22 @ 10:27 by Zelda Mcdaniels 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, 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-C) Arthritis Bilateral carotid artery stenosis Bilateral extracranial carotid artery stenosis Breast abscess Breast cancer, right breast ( 03/2022) CHF (congestive heart failure) Chronic kidney disease, stage 3a Diastolic congestive heart failure GERD (gastroesophageal reflux disease) Hiatal hernia History of IBS HLD (hyperlipidemia) HTN (hypertension) Hyperlipidemia Hypertension Hypertension Hypoxia Labile blood pressure Left adrenal mass Left adrenal mass ABDI (obstructive sleep apnea) PONV (postoperative nausea and vomiting) Shakiness Stage 3a chronic kidney disease (CKD) Type 2 diabetes mellitus Uncontrolled hypertension Wears glasses Wears hearing aid Surgical History (Reviewed 09/10/22 @ 10:27 by Zelda Mcdaniels 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, 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-C) History of cataract extraction History of cholecystectomy History of colonoscopy History of hysterectomy History of right breast biopsy ( 03/2022) History of umbilical hernia repair Family History (Reviewed 09/10/22 @ 10:27 by Zelda Mcdaniels 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, 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-C) Brother Pancreatic cancer Diabetes Heart disease Lung cancer Hypertension Colon cancer Mother Hypertension Brother No problems noted. Brother Cancer Brother Sleep apnea Myocardial infarction Brother Sleep apnea Other Arthritis Asthma Social History (Reviewed 09/10/22 @ 10:27 by Zelda Mcdaniels 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, 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-C) household members: 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 housing: house Smoking Status: Never smoker alcohol intake: never substance use type: does not use what type of physical activity do you participate in: none seatbelt use: always do you feel safe at home: Yes Review of Systems Resp Respiratory: Yes as per HPI Exam Const Constitutional: Positive conversant, cooperative, in no acute respiratory distress, healthy appearing, well developed, well nourished, good hygiene and obese Head Head: Yes normocephalic and Yes atraumatic Eyes Eye: Positive clear conjunctiva; Negative nystagmus Ears Ear: Positive hearing normal and external ears normal Nose Nose: Yes external nose normal Mouth Mouth: Positive oral mucosae normal Neck Neck: Positive normal visual inspection, thick neck, full ROM and trachea midline Chest Wall Chest: Positive normal inspection of the chest and symmetric chest movement; Negative increased A/P diameter Resp lung sounds: Positive clear to auscultation, good air exchange, normal expiratory time and normal respiratory effort; Negative diminished lung sounds, wheezes, rhonchi or rales Cardio Cardiac: Positive regular rate, regular rhythm, S1 normal and S2 normal; Negative murmur GI GI: Positive normal to inspection and obese Genitourinary: Positive deferred Musc Musculoskeletal: Positive steady gait, ROM normal and kyphosis; Negative scoliosis Skin Pulmonary Skin Exam: Positive intact; Negative lesion, rash or ulcers Extremities Extremities: No clubbing and No cyanosis Neuro Neurologic: Yes no focal neuro deficits, Yes conversant, Yes cooperative, Yes normal cognition, Yes normal coordination, Yes normal concentration and Yes understands questions Psych Appearance: Positive grossly normal, eye contact and well kempt Mental Status: Positive mental status grossly normal Mood: Positive congruent mood Affect: Positive normal affect Coding Level of Care Code Off vis,est,level 3 Diagnoses ABDI (obstructive sleep apnea) G47.33 BMI 40.0-44.9, adult Z68.41 09/10/22 1235 <Electronically signed by Zelda JAMES> Date Zelda JAMES Cosigner Signature: Date (if applicable) CC: Dr. Martina Lal, DO Martina Lal DO Work Phone: Start: 09-04-2022 End: 09-05-2022 Cardiology Visit Report Procedure Note: See Note; NOTES: [facility] [address] [place] [address]. [address] [place] [address] OFFICE VISIT Date of Service: 09/04/22 MR#: [id number] Acct: [id number] Name: DEBBIE MIRELES Rep #: [id number] : 1935 Provider: ERIKA perez Age/Sex: 87/F Location: [facility] Status: Signed HPI [facility] History of Present Illness Details: DEBBIE MIRELES, is a 87 year old white female who presents to the office today for cardiovascular hospital follow-up visit. She was consulted while in the hospital based upon concerns of heart failure preserved ejection fraction CHF/diastolic mediated CHF superimposed upon a history of hyperlipidemia, hypertension, diabetes mellitus, carotid artery disease, and breast carcinoma status post recent right breast surgery with subsequent seroma/abscess status postevacuation on 05-15-2022 who presented for concerns of worsening shortness of breath/dyspnea and hypoxemia. The patient has been undergoing evaluation by multiple physicians for her multiple medical issues.??? From a cardiovascular standpoint she has undergone recent evaluation with a transthoracic echocardiogram on 05-20-2022.??? Per the report the left ventricle was normal with an LVEF of 60% with moderate concentric LVH and stage II diastolic dysfunction.??? There was mild MR and mild to moderate TR.??? A chest x-ray suggested mild pulmonary edema and small pleural effusions.??? Thus she had been treated medically with diuretic therapy. Patient was recently in the emergency room on 07/02/2022 with hypertension. While in the emergency room she was ambulated to the bathroom, where she became hypoxic. A chest x-ray was obtained and demonstrated bilateral atelectasis. She was then admitted to PCU for further evaluation. During admission she did have a bradycardic episode, and her carvedilol and hydralazine were placed on hold. Her bradycardic episode was thought to be vasovagal. She was later discharged from the hospital on her current dose of lisinopril, amlodipine, and furosemide. She was instructed to follow-up with cardiology and PCP. From a cardiac standpoint, the patient is doing well. She denies any palpitations, chest pain, pressure or heaviness. She does have SOB with walking too far or hurrying. This has improved. She denies Orthopnea, and PND. She has been wearing a CPAP at night. She does not have bleeding issues; no blood in urine, stool or nosebleeds. She denies any decrease in energy level, myalgias, or claudication. She does not have edema, or sudden weight gain. She denies dizziness, lightheadedness, syncopal or near syncopal episodes, and headaches.Patient is being followed by nephrology. Intake Vital Signs 06/04/22 14:01 09/02/22 13:21 09/04/22 15:09 09/04/22 15:15 Height 5 ft 1 in 5 ft 1 in 5 ft 1 in 5 ft 1 in Weight: 218 lb 215 lb BMI 41.1 40.6 BP 163/70 H 175/75 H Blood Pressure Location Lt brachial Lt brachial Position Sitting Sitting Respiration 18 20 H Pulse 73 69 Pulse Source Monitor Monitor Temp 97.2 F L Pulse Oximetry (%) 98 95 Oxygen Delivery Method room air Intake Visit Reasons: 3 M FU Wardrobe Mistress Required: No Is patient in pain?: No Allergies morphine Adverse Reaction (Intermediate, Verified 09/04/22 15:27) mental status change meperidine HCl [From Demerol] Adverse Reaction (Mild, Verified 09/04/22 15:27) mental status change Medications latanoprost 0.005 % eye drops (Xalatan) 1 drp EACH EYE QHS Cataracts/Dry eye 07/29/14 [History Confirmed 09/04/22] omega-3 fatty acids-fish oil 300 mg-1,000 mg capsule 1 ea PO DAILY SUPPLEMENT 07/29/14 [History Confirmed 09/04/22] aspirin 81 mg chewable tablet 81 mg PO DAILY HEART HEALTH 06/26/18 [History Confirmed 09/04/22] cholecalciferol (vitamin D3) 125 mcg (5,000 unit) capsule 125 mcg PO DAILY SUPPLEMENT 04/01/22 [History Confirmed 09/04/22] liver supplement 1 cap PO QHS SUPPLEMENT 04/01/22 [History Confirmed 09/04/22] Colloidal Silver 2 tsp PO DAILY SUPPLEMENT 06/11/22 [History Confirmed 09/04/22] cinnamon bark 500 mg capsule (Cinnamon) 500 mg PO DAILY SUPPLEMENT 06/11/22 [History Confirmed 09/04/22] acetaminophen 500 mg tablet 1,000 mg PO Q6H PRN Pain 07/02/22 [History Confirmed 09/04/22] amlodipine 10 mg tablet 10 mg PO DAILY blood pressure 07/02/22 [History Confirmed 09/04/22] ascorbic acid (vitamin C) 500 mg tablet 500 mg PO BID supplement 07/02/22 [History Confirmed 09/04/22] lorazepam 0.5 mg tablet 0.5 mg PO DAILY PRN Anxiety 07/02/22 [History Confirmed 09/04/22] polyethylene glycol 3350 17 gram oral powder packet 17 g PO QHS STOOL 07/02/22 [History Confirmed 09/04/22] melatonin 3 mg tablet 3 mg PO QHS PRN Sleep 07/13/22 [History Confirmed 09/04/22] nateglinide 60 mg tablet 60 mg PO TID dm 07/13/22 [History Confirmed 09/04/22] potassium chloride 20 mEq tablet,extended release 20 meq PO DAILY supplement 07/14/22 [History Confirmed 07/18/22] lisinopril 20 mg tablet 30 mg PO DAILY #45 tabs 07/17/22 [Rx Confirmed 09/04/22] pantoprazole 40 mg tablet,delayed release 40 mg PO DAILY #30 tabs 07/17/22 [Rx Confirmed 09/04/22] furosemide 20 mg tablet 20 mg PO 09/02/22 [History Confirmed 09/04/22] clonidine HCl 0.1 mg tablet 0.1 mg PO DAILY PRN SBP>160 x 2 readings 30 min apart 09/04/22 [History Confirmed 09/04/22] [facility] Medical History (Reviewed 09/05/22 @ 17:36 by Rama Camara 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, 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-C) Arthritis Bilateral carotid artery stenosis Bilateral extracranial carotid artery stenosis Breast abscess Breast cancer, right breast ( 03/2022) CHF (congestive heart failure) Chronic kidney disease, stage 3a Diastolic congestive heart failure GERD (gastroesophageal reflux disease) Hiatal hernia History of IBS HLD (hyperlipidemia) HTN (hypertension) Hyperlipidemia Hypertension Hypertension Hypoxia Labile blood pressure Left adrenal mass Left adrenal mass ABDI (obstructive sleep apnea) PONV (postoperative nausea and vomiting) Shakiness Stage 3a chronic kidney disease (CKD) Type 2 diabetes mellitus Uncontrolled hypertension Wears glasses Wears hearing aid Surgical History (Reviewed 09/05/22 @ 17:36 by Rama Camara 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, 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-C) History of cataract extraction History of cholecystectomy History of colonoscopy History of hysterectomy History of right breast biopsy ( 03/2022) History of umbilical hernia repair Family History (Reviewed 09/05/22 @ 17:36 by Rama Camara 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, 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-C) Brother Pancreatic cancer Diabetes Heart disease Lung cancer Hypertension Colon cancer Mother Hypertension Brother No problems noted. Brother Cancer Brother Sleep apnea Myocardial infarction Brother Sleep apnea Other Arthritis Asthma Social History (Reviewed 09/05/22 @ 17:36 by Rama Camara 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, 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-C) household members: 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 housing: house Smoking Status: Never smoker alcohol intake: never substance use type: does not use what type of physical activity do you participate in: none seatbelt use: always do you feel safe at home: Yes ROS Const Const: Negative for fatigue, weakness, fever(s), headache(s), chills, frequent falls, weight gain or weight loss Eyes Eyes: Negative for blind spots, loss of peripheral vision, transient loss of vision, blurry vision, change in vision, double vision, floaters or tunnel vision ENT ENT: Negative for headache(s), dizziness, Nosebleed/epistaxis, balance problems or neck pain Cardio Chest Pain: No Palpitations: No Edema: None Muscle aches with walking: None Resp Respiratory: Positive for SOB with activity (walking too fast or hurrying-improved); Negative for SOB at rest or SOB orthopnea SOB lying down GI GI: Negative nausea, vomiting, heartburn, bloating, vomiting blood/hematemesis, bright, red blood in stools or black,tarry stools Musc Musc: Negative for muscle aches/ myalgia, muscle weakness, joint pain or balance problems Neuro Neuro: Negative for dizziness, lightheadedness, near syncope, syncope, orthostatic symptoms, frequent falls, headache(s), weakness, blurry vision or double vision Star Hematologic/Lymphatic: Negative for easy bleeding or easy bruising Endo Endo: Negative for fatigue Cardiology Exam Const Appearance: cooperative and no acute distress Nutritional Appearance: obese Orientation: alert and oriented x3 Head Head: normal to inspection Ears: hearing grossly normal bilaterally Nose: external nose normal Face and Sinus: face symmetric Eyes General: appearance normal, both eyes and all related structures Eyelids: eyelids normal Conjunctivae: conjunctivae normal Pupils: PERRL and pupil size EOM: EOM intact bilaterally Neck Neck: normal visual inspection Carotids: Negative bruit Chest Chest inspection: normal inspection of the chest and normal respiratory effort Auscultation: Bilateral: Clear to Auscultation Cardio Palpation: normal PMI Rate: regular rate Rhythm: regular rhythm Heart sounds: S1 normal and S2 normal; Negative rub, gallop or murmur GI GI: normal to inspection, soft and obese; Negative no hepatosplenomegaly Neuro General: patient alert, patient oriented x3 and CN's II-XI intact bilaterally Skin Skin: no rashes or lesions noted Extremities Pulses: Normal: Right Posterior Tibial Pulse, Left Posterior Tibial Pulse, Right Radial Pulse and Left Radial Pulse Lower Extremity Edema: Trace: Bilateral Psych Psychological: normal affect Supplemental Info Supplemental Information Echocardiogram 05/20/2022: Interpretation Summary Left ventricular systolic function is normal. The estimated ejection fraction is 60 %. Normal size and thickness. Moderate concentric left ventricular hypertrophy. Stage 2 diastolic dysfunction. Carotid Duplex 10/12/2021: Interpretation Summary Mild irregular plaque of the proximal right internal carotid artery with less than 50% stenosis Greater than 50% stenosis right external carotid artery Irregular calcific plaque left common carotid and proximal internal carotid artery. 50 to 69% stenosis of the left internal carotid artery. Greater than 50% stenosis left external carotid artery Patent and antegrade vertebral arteries bilaterally Findings appear similar to the previous examination of June 19, 2018 Labs: LDL Cholesterol 102 mg/dL (0-130) HDL Cholesterol 40 mg/dL (40-) Triglycerides 137 mg/dL (-199) VLDL Cholesterol 27 mg/dL (5-40) Diagnostics: Electrocardiogram Echocardiogram Chest X-Ray Pulmonary: No Data to Display Assessment and Plan Assessment and Plan (1) Hypertension: Status: Inactive Plan: Patient has a history of hypertension. Her blood pressure is elevated in the office today. She states that she was unable to tolerate Cardura, and hydralazine. I discussed taking clonidine on a daily basis to help with blood pressure control. She does not want to take this on a daily basis. She will continue lisinopril 30mg daily, amlodipine 10mg daily, and Lasix 20mg daily. She will monitor her blood pressures at home, and notify our office of updated blood pressure readings in 2 weeks. (2) Diastolic congestive heart failure: Status: Inactive Plan: Patient has a history of diastolic congestive heart failure. Her most recent echocardiogram from 05/20/2022 demonstrated an ejection fraction of 60%, and stage II diastolic dysfunction. She appears stable at this time, and denies any recent symptoms or events. She will continue with her current medical therapy, along with monitoring for any concerning symptoms. (3) Chronic kidney disease, stage 3a: Status: Inactive Plan: Patient has a history of chronic kidney disease. She will continue to follow with nephrology for this. (4) ABDI (obstructive sleep apnea): Status: Acute Plan: Patient has a history of obstructive sleep apnea. She will continue with CPAP therapy, as well as following with pulmonology for this. (5) Bilateral carotid artery stenosis: Status: Chronic Plan: Patient has a history of bilateral carotid artery stenosis. Her most recent carotid ultrasound from 10/12/2021 was reviewed with her. We will continue to monitor this. Medications: Changed From clonidine HCl do not use more than twice daily 0.1 mg PO DAILY PRN 30 tabs 0RF SBP>160 x 2 readings 30 min apart To clonidine HCl 0.1 mg po daily take 1/2 if blood pressure is over 180 then wait 2 hrs if still high take another 1/2 tab. 0.1 mg PO DAILY PRN SBP>160 x 2 readings 30 min apart Plan Details Additional Comments: Patient will follow up in 5-6 months, or sooner if needed. Thank you for allowing me to participate in the care of your patient. Please don't hesitate to call if any issues arise. This note was generated using a voice recognition system and there may be incorrect words, spelling, or punctuation that were not noted when reviewing the office note prior to saving. Portions of this documentation were copied and pasted from previous office visit notes to provide a cohesive continuity of the history. The note has been reviewed, edited, and updated, as necessary. Follow Up: 5-6 Months (All) Coding Level of Care Code Off vis,est,level 3 Diagnoses Hypertension I10 Diastolic congestive heart failure I50.30 Chronic kidney disease, stage 3a N18.31 ABDI (obstructive sleep apnea) G47.33 Bilateral carotid artery stenosis I65.23 Coding Level of Care Code Off vis,est,level 3 Diagnoses Hypertension I10 Diastolic congestive heart failure I50.30 Chronic kidney disease, stage 3a N18.31 ABDI (obstructive sleep apnea) G47.33 Bilateral carotid artery stenosis I65.23 09/05/22 1742 <Electronically signed by Rama JAMES> Date Rama JAMES Cosigner Signature: Date (if applicable) CC: Dr. Martina Lal, DO Martina Lal DO Work Phone: Start: 09-02-2022 End: 09-03-2022 Endocrinology Visit Report Procedure Note: See Note; NOTES: [facility] [address] [place] [address]. [address] [place] [address] OFFICE VISIT Date of Service: 09/02/22 MR#: [id number] Acct: [id number] Name: DEBBIE MIRELES Rep #: [id number] : 1935 Provider: Rodríguez Jiang Age/Sex: 87/F [place] [facility] [place]: Signed Intake Vital Signs 07/02/22 12:59 07/18/22 08:01 09/02/22 13:21 Height 5 ft 1 in 5 ft 1 in 5 ft 1 in Weight: 218 lb BMI 41.1 BP 163/70 H Blood Pressure Location Lt brachial Position Sitting Respiration 18 Pulse 73 Pulse Source Monitor Temp 97.2 F L Temp Source Temporal Pulse Oximetry (%) 98 Oxygen Delivery Method room air Intake Visit Reasons: Adrenal Chief Complaint: adrenal mass Wardrobe Mistress Required: No Accompanied by: Daughter Is patient in pain?: No Allergies morphine Adverse Reaction (Intermediate, Verified 09/02/22 13:27) mental status change meperidine HCl [From Demerol] Adverse Reaction (Mild, Verified 09/02/22 13:27) mental status change PFSH Medical History Arthritis Bilateral carotid artery stenosis Bilateral extracranial carotid artery stenosis Breast abscess Breast cancer, right breast ( 03/2022) CHF (congestive heart failure) Chronic kidney disease, stage 3a Diastolic congestive heart failure GERD (gastroesophageal reflux disease) Hiatal hernia History of IBS HLD (hyperlipidemia) HTN (hypertension) Hyperlipidemia Hypertension Hypertension Hypoxia Labile blood pressure Left adrenal mass Left adrenal mass ABDI (obstructive sleep apnea) PONV (postoperative nausea and vomiting) Shakiness Stage 3a chronic kidney disease (CKD) Type 2 diabetes mellitus Uncontrolled hypertension Wears glasses Wears hearing aid Surgical History History of cataract extraction History of cholecystectomy History of colonoscopy History of hysterectomy History of right breast biopsy ( 03/2022) History of umbilical hernia repair Family History Brother Pancreatic cancer Diabetes Heart disease Lung cancer Hypertension Colon cancer Mother Hypertension Brother No problems noted. 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 housing: house Smoking Status: Never smoker alcohol intake: never substance use type: does not use what type of physical activity do you participate in: none seatbelt use: always do you feel safe at home: Yes HPI HPI Chief Complaint: adrenal mass Details: DEBBIE MIRELES, is a 87 F who presents to the office today for evaluation and management of adrenal mass. The patient presented in March 2022 with symptoms of right sided abdominal pain. The work-up led to the discovery of a right breast mass that was cancer. She was also found to have a 2.6 cm left adrenal mass. She had a repeat scan 4 months after the first and there were no changes. She had extensive work up including urine metanephrines, urine catecholamines, urine cortisol, serum cortisol and ACTH level. All were normal. She had hospitalization for CHF, high blood pressure and MALATHI. She is doing much better at this time. She states that she refused Arimidex and this is upsetting to her daughter, who wants her to take it. The patient states that she has placed her fate into the hands of God and she doesn't want any more testing or treatment. Exam Const General: cooperative, comfortable, no acute distress, well developed, not cushingoid and frail appearing Nutritional Appearance: well nourished and obese Orientation: alert, awake and oriented x3 HENMT Head: normal to inspection Nose: external nose normal Mouth: oral mucosae normal Eyes General: appearance normal, both eyes and all related structures Alignment and Position: alignment normal Periorbital: periorbital findings normal Eyelids: eyelids normal Conjunctivae: conjunctivae normal Neck Neck: normal visual inspection Neck mass: No Thyroid: thyroid normal Lymphatic: no lymphadenopathy noted Chest Chest palpation inspection: normal inspection of the chest Resp Effort Inspection: normal respiratory effort, able to speak in complete sentences, symmetric chest movement, no audible wheezes and no cough Cardio Rate: regular rate Rhythm: regular rhythm GI Inspection: normal to inspection Palpation: soft Skin General: no rashes or lesions noted Neuro General: patient alert, patient awake and patient oriented x3 Cranial Nerves: CN's II-XI intact bilaterally Cognition: normal cognition Speech: speech normal Psych Appearance: grossly normal Mental Status: mental status grossly normal Mood: congruent mood Affect: normal affect Speech and Movement: speech and movement normal Attitude: cooperative Thought Process: normal Thought Content: normal Judgment: judgment good Coding Level of Care Code Off vis,new,level 5 Diagnoses Left adrenal mass E27.8 Assessment and Plan Assessment and Plan (1) Left adrenal mass: Status: Chronic Comment: CT February 2022 Plan: The patient has had 2 scans by time that show no change in the mass. Her metabolic work up has been negative. I don't see a DHEA-S level. The patient states that at my age, I don't want a lot of stuff done. I believe her situation is low risk for adrenal disease. Will check DHEA-S level. Daughter wants her to have another scan in one year, which I think is fine, but based on Debbie's preferences, likely not needed. I have spent [60] minutes today reviewing labs, records and history. Time includes coordinating care, interpretation of tests, discussion with patient's other health care providers via telephone. This also includes time I spent with the patient for exam, treatment plan and education as well as documenting clinical information. Orders: Orders DHEA Sulfate 09/02/22 E27.8 - Other specified disorders of adrenal gland 09/03/22 0819 <Electronically signed by Cyrus Whipple MD> Date Cyrus Whipple MD Cosigner Signature: Date (if applicable) CC: Dr. Martina Lal, DO Martina Lal DO Work Phone: Start: 07-18-2022 End: 07-18-2022 Pulmonary Visit Report Procedure Note: See Note; NOTES: [facility] [place] [address] [place] [address] OFFICE VISIT Date of Service: 07/18/22 MR#: [id number] Acct: [id number] Name: DEBBIE MIRELES Rep #: [id number] : 1935 Provider: ERIKA Mcdaniels Age/Sex: 86/F Location: [facility] Status: Signed Assessment and Plan Assessment and Plan (1) ABDI (obstructive sleep apnea): Status: Acute (2) BMI 40.0-44.9, adult: Status: Acute Plan Lengthy discussion about the deleterious effects of untreated obstructive sleep apnea, including life-threatening conditions and recurrent hospitalizations. Discussed treatment options, risks and benefits. Had repeat several of the information pieces multiple times. After lengthy discussion and deliberation the patient has agreed to proceed with AutoPap therapy. She remains precontemplative but is willing to give it a try. Plan for a follow-up visit in the office in 3 months. At that time I anticipate she will be on therapy for at least 4 to 6 weeks. She has been encouraged to contact the office with any difficulty acclimating to therapy. I did discuss with her that if she fails the trial of AutoPap therapy that a titration study would likely be the next step. Continue to encourage weight loss. I have spent 45 minutes today reviewing records and history. Time includes coordinating care. This also includes time I spent with the patient for exam, treatment plan and education as well as documenting clinical information. Plan Details Follow Up: 3 Months (BWA) HPI ABDI Chief Complaint: Set up HPI Comments Details: This patient presents to the office today for follow up on her obstructive sleep apnea. She is ambulatory with the use of a walker. She is accompanied today by her daughter. If you recall, she was originally diagnosed with obstructive sleep apnea back in October. She was seen in the office in November. For some unknown reason she failed to follow-up. Since then, she has had multiple hospitalizations with several physicians telling her they are concerned about her obstructive sleep apnea being untreated. She does snore. She does nap. She does have difficulty with dry mouth. She has been having difficulty with chest discomfort and palpitations. She is also had uncontrolled hypertension. She does have shortness of breath on exertion, not progressed. She denies any cough, sputum production or hemoptysis. She has not had any wheezing but occasionally has chest discomfort and palpitations. She has not had any fever, chills or body aches. Test results personally reviewed with patient: Unattended sleep study completed on October 23, 2021. Overall AHI was 18.5 events per hour. Diagnosis is obstructive sleep apnea. Recommendation is a CPAP titration study or consider a trial of AutoPap 5 to 15 cm of water. Intake Vital Signs 07/10/22 12:54 07/14/22 10:52 07/18/22 08:01 Height 5 ft 1 in 5 ft 1 in 5 ft 1 in Weight: 220 lb BMI 41.5 BP 153/80 H Blood Pressure Location Lt brachial Position Sitting Respiration 18 Pulse 78 Pulse Source Monitor Temp 97.2 F L Temperature Source Temporal Artery Pulse Oximetry (%) 96 Oxygen Delivery Method room air Intake Visit Reasons: ABDI Chief Complaint: dizzy, weak Wardrobe Mistress Required: No Accompanied by: Daughter Is patient in pain?: No Allergies morphine Adverse Reaction (Intermediate, Verified 07/12/22 11:43) mental status change meperidine HCl [From Demerol] Adverse Reaction (Mild, Verified 07/12/22 11:43) mental status change Medications latanoprost 0.005 % eye drops (Xalatan) 1 drp EACH EYE QHS Cataracts/Dry eye 07/29/14 [History Confirmed 07/18/22] omega-3 fatty acids-fish oil 300 mg-1,000 mg capsule 1 ea PO DAILY SUPPLEMENT 07/29/14 [History Confirmed 07/18/22] aspirin 81 mg chewable tablet 81 mg PO DAILY HEART HEALTH 06/26/18 [History Confirmed 07/18/22] cholecalciferol (vitamin D3) 125 mcg (5,000 unit) capsule 125 mcg PO DAILY SUPPLEMENT 04/01/22 [History Confirmed 07/18/22] liver supplement 1 cap PO QHS SUPPLEMENT 04/01/22 [History Confirmed 07/18/22] Colloidal Silver 2 tsp PO DAILY SUPPLEMENT 06/11/22 [History Confirmed 07/18/22] cinnamon bark 500 mg capsule (Cinnamon) 500 mg PO DAILY SUPPLEMENT 06/11/22 [History Confirmed 07/18/22] acetaminophen 500 mg tablet 1,000 mg PO Q6H PRN Pain 07/02/22 [History Confirmed 07/18/22] amlodipine 10 mg tablet 10 mg PO DAILY blood pressure 07/02/22 [History Confirmed 07/18/22] ascorbic acid (vitamin C) 500 mg tablet 500 mg PO BID supplement 07/02/22 [History Confirmed 07/18/22] furosemide 40 mg tablet 40 mg PO DAILY FLUID 07/02/22 [History Confirmed 07/18/22] lorazepam 0.5 mg tablet 0.5 mg PO DAILY PRN Anxiety 07/02/22 [History Confirmed 07/18/22] polyethylene glycol 3350 17 gram oral powder packet 17 g PO QHS STOOL 07/02/22 [History Confirmed 07/18/22] melatonin 3 mg tablet 3 mg PO QHS PRN Sleep 07/13/22 [History Confirmed 07/18/22] nateglinide 60 mg tablet 60 mg PO TID dm 07/13/22 [History Confirmed 07/18/22] famotidine 20 mg tablet (Pepcid) 20 mg PO DAILY 07/14/22 [History Confirmed 07/18/22] potassium chloride 20 mEq tablet,extended release 20 meq PO DAILY supplement 07/14/22 [History Confirmed 07/18/22] clonidine HCl 0.1 mg tablet 0.1 mg PO DAILY PRN SBP>160 x 2 readings 30 min apart #30 tabs 07/17/22 [Rx Confirmed 07/18/22] lisinopril 20 mg tablet 30 mg PO DAILY #45 tabs 07/17/22 [Rx Confirmed 07/18/22] pantoprazole 40 mg tablet,delayed release 40 mg PO DAILY #30 tabs 07/17/22 [Rx Confirmed 07/18/22] PFSH Medical History (Reviewed 07/18/22 @ 09:00 by Zelda Mcdaniels 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, 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-C) Arthritis Bilateral carotid artery stenosis Bilateral extracranial carotid artery stenosis Breast abscess Breast cancer, right breast ( 03/2022) CHF (congestive heart failure) Chronic kidney disease, stage 3a Diastolic congestive heart failure GERD (gastroesophageal reflux disease) Hiatal hernia History of IBS HLD (hyperlipidemia) HTN (hypertension) Hyperlipidemia Hypertension Hypertension Hypoxia Labile blood pressure Left adrenal mass Left adrenal mass ABDI (obstructive sleep apnea) PONV (postoperative nausea and vomiting) Shakiness Stage 3a chronic kidney disease (CKD) Type 2 diabetes mellitus Uncontrolled hypertension Wears glasses Wears hearing aid Surgical History (Reviewed 07/18/22 @ 09:00 by Zelda Mcdaniels 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, 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-C) History of cataract extraction History of cholecystectomy History of colonoscopy History of hysterectomy History of right breast biopsy ( 03/2022) History of umbilical hernia repair Family History (Reviewed 07/18/22 @ 09:00 by Zelda Mcdaniels 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, 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-C) Brother Pancreatic cancer Diabetes Heart disease Lung cancer Hypertension Colon cancer Mother Hypertension Brother No problems noted. 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 housing: house Smoking Status: Never smoker alcohol intake: never substance use type: does not use what type of physical activity do you participate in: none seatbelt use: always do you feel safe at home: Yes Review of Systems Resp Respiratory: Yes as per HPI Exam Const Constitutional: Positive conversant, cooperative, in no acute respiratory distress, healthy appearing, well developed, well nourished, good hygiene and obese Head Head: Yes normocephalic and Yes atraumatic Eyes Eye: Positive clear conjunctiva; Negative nystagmus Ears Ear: Positive hearing normal and external ears normal Nose Nose: Yes external nose normal Mouth Mouth: Positive oral mucosae normal Neck Neck: Positive normal visual inspection, thick neck, full ROM and trachea midline Chest Wall Chest: Positive normal inspection of the chest and symmetric chest movement; Negative increased A/P diameter Resp lung sounds: Positive clear to auscultation, good air exchange, normal expiratory time and normal respiratory effort; Negative diminished lung sounds, wheezes, rhonchi or rales Cardio Cardiac: Positive regular rate, regular rhythm, S1 normal and S2 normal; Negative murmur GI GI: Positive normal to inspection and obese Genitourinary: Positive deferred Musc Musculoskeletal: Positive steady gait, ROM normal and kyphosis; Negative scoliosis Skin Pulmonary Skin Exam: Positive intact; Negative lesion, rash or ulcers Extremities Extremities: No clubbing and No cyanosis Neuro Neurologic: Yes no focal neuro deficits, Yes conversant, Yes cooperative, Yes normal cognition, Yes normal coordination, Yes normal concentration and Yes understands questions Psych Appearance: Positive grossly normal, eye contact and well kempt Mental Status: Positive mental status grossly normal Mood: Positive congruent mood Affect: Positive normal affect Coding Level of Care Code Off vis,est,level 5 Diagnoses ABDI (obstructive sleep apnea) G47.33 BMI 40.0-44.9, adult Z68.41 07/18/22 1221 <Electronically signed by Zelda Mcdaniels NP 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-C> Date Zelda Mcdaniels NP 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-C Josue Signature: Date (if applicable) CC: DO Martina Swan DO Work Phone: Start: 07-13-2022 End: 07-13-2022 Chest 1 View (Portable) Procedure Note: See Note; NOTES: [facility] [address] [place] [id number] Chest 1 View (Portable) MR#: [id number] Acct: [id number] Name: DEBBIE MIRELES Rep #: [id number] : 1935 F 86 From: Justyn Chi PCP: Dr. Martina Lal DO Status: REG ER Study: Chest 1 View (Portable) Date of Exam: 07/13/22 Exam# [id number] Ordering Dr: Anthony Davila MD INDICATION: weakness EXAMINATION/TECHNIQUE: X-RAY - XR Chest 1 View COMPARISON: 07/02/2022 FINDINGS: LIFE-SUPPORT AND LINES: 1. None HEART AND VESSELS: The cardiac silhouette, pulmonary vasculature have normal appearance. No evidence of congestive failure. Coarse aortic calcifications present. LUNGS AND PLEURAL SPACES: Atelectasis versus infiltrate LEFT lung base, LEFT pleural thickening and small LEFT effusion. RIGHT lung is clear. No pulmonary mass is noted. MEDIASTINUM AND HILAR REGIONS: No masses adenopathy noted. No areas of calcification. Visualized upper airway is normal in position. BONY ELEMENTS: No acute bony changes noted. RAD/Chest 1 View (Portable) IMPRESSION: 1. LEFT lower lobe atelectasis versus infiltrate with pleural thickening and small LEFT pleural effusion. 2. RIGHT lung is clear. 3. No congestive failure. Electronically Signed: Justyn Mandujano MD at 21:36 EST , CC: Dr. Anthony Davila MD; Dr. Martina Lal DO Assistant Project Manager: Signed Martina Lal DO Work Phone: Start: 07-13-2022 Plain chest X-ray Dr. Martina Lal Work Phone: Start: 07-13-2022 End: 07-14-2022 Emergency Department Summary Procedure Note: See Note; NOTES: [facility] Records Department [address] [place] [address] Emergency Department Summary 07/13/22 MR#: [id number] Acct: [id number] Name: DEBBIE MIRELES Rep #: [id number] : 1935 86 From: Anthony Davila MD PCP: Dr. Martina Lal DO Status:REG ER Location: ED HPI History of Present Illness Chief Complaint: Weakness Informant: patient Onset/Context/Timing Onset: Days (2-3) Context: Gradual Onset Timing: Continuous Quality: weak Location: all over Current Severity: Severe Maximum Severity: Severe Worsened by: nothing Relieved by: nothing Associated Symptoms Associated Symptoms: nausea. sob at times. Narrative Narrative: Patient brought by daughter because she is extremely weak and unable to get around, progressively worsening over the last couple days. Has been in and out of the hospital recently for congestive heart failure, MALATHI related issues. Also has had very high blood pressures, all of this has caused several medication changes in the past month or 2, her pressures were high earlier in the week after being discharged from the hospital a week or so ago, and so Cardura was added just prior to her starting to feel very weak now. Her pressures have been better, 150s-180s systolic since then. Right now 175/162. She denies any fevers or chills. She has been nauseated from time to time, she has dyspnea from time to time but states that is not anything new. She denies any acute orthopnea. No chest pain. She cannot tell if she has abdominal pain or not, because she just feels so weak and nauseated. [facility] Medical History Abnormal cardiac enzyme level Ambulates with cane Arthritis Bilateral carotid artery stenosis Bilateral extracranial carotid artery stenosis Breast abscess Breast cancer, right breast ( 03/2022) Cancer CHF (congestive heart failure) Difficulty swallowing Encounter for education GERD (gastroesophageal reflux disease) History of edema History of IBS History of renal disease History of steroid therapy HLD (hyperlipidemia) HTN (hypertension) Hyperlipidemia Hypertension Infected seroma, postoperative Left adrenal mass Leg cramps Non-smoker PONV (postoperative nausea and vomiting) Shortness of breath on exertion Sleep apnea Stage 3a chronic kidney disease (CKD) Type 2 diabetes mellitus Wears glasses Wears hearing aid Home Medications latanoprost 0.005 % eye drops (Xalatan) 1 drp EACH EYE QHS Cataracts/Dry eye 07/29/14 [History Last Taken 07/01/22] omega-3 fatty acids-fish oil 300 mg-1,000 mg capsule 1 ea PO DAILY SUPPLEMENT 07/29/14 [History Last Taken 07/01/22] aspirin 81 mg chewable tablet 81 mg PO DAILY HEART HEALTH 06/26/18 [History Last Taken 07/02/22] cholecalciferol (vitamin D3) 125 mcg (5,000 unit) capsule 125 mcg PO DAILY SUPPLEMENT 04/01/22 [History Last Taken 07/01/22] liver supplement 1 cap PO QHS SUPPLEMENT 04/01/22 [History Last Taken 07/01/22] sodium chloride 0.65 % nasal spray aerosol (Deep Sea Nasal) 2 spray NASAL TID PRN PRN NASAL DRYNESS #0 mL 05/23/22 [Rx Last Taken Unknown] melatonin 3 mg capsule 3 mg PO HS PRN Sleep 06/04/22 [History Last Taken Unknown] Colloidal Silver 1 tsp PO DAILY SUPPLEMENT 06/11/22 [History Last Taken 07/01/22] cinnamon bark 500 mg capsule (Cinnamon) 500 mg PO DAILY SUPPLEMENT 06/11/22 [History Last Taken 07/01/22] ondansetron 4 mg disintegrating tablet 4 mg PO UD PRN nausea/vomiting 06/11/22 [History Last Taken Unknown] acetaminophen 500 mg tablet 1,000 mg PO Q6H PRN Pain 07/02/22 [History Last Taken 06/28/22] amlodipine 10 mg tablet 10 mg PO DAILY blood pressure 07/02/22 [History Last Taken 07/02/22] ascorbic acid (vitamin C) 500 mg tablet 500 mg PO BID supplement 07/02/22 [History Last Taken 07/01/22] famotidine 20 mg tablet (Pepcid) 20 mg PO DAILY acid reflux 07/02/22 [History Last Taken 07/01/22] furosemide 40 mg tablet 40 mg PO DAILY FLUID 07/02/22 [History Last Taken 07/02/22] lisinopril 20 mg tablet 20 mg PO DAILY BLOOD PRESSURE 07/02/22 [History Last Taken 07/01/22] lorazepam 0.5 mg tablet 0.5 mg PO DAILY PRN Anxiety 07/02/22 [History Last Taken 07/02/22] polyethylene glycol 3350 17 gram oral powder packet 17 g PO QHS STOOL 07/02/22 [History Last Taken 07/01/22] potassium chloride 20 mEq tablet,extended release 20 meq PO DAILY #30 tabs 07/07/22 [Rx Last Taken Unknown] doxazosin 2 mg tablet (Cardura) 2 mg PO DAILY #30 tabs 07/10/22 [Rx Last Taken Unknown] melatonin 3 mg tablet 3 mg PO QHS 07/13/22 [History Last Taken Unknown] nateglinide 60 mg tablet 60 mg PO TID 07/13/22 [History Last Taken Unknown] Allergy/AdvReac Type Severity Reaction Status Date / Time morphine AdvReac Intermediate mental Verified 07/12/22 11:43 status change meperidine HCl [From Demerol] AdvReac Mild mental Verified 07/12/22 11:43 status change Family History Brother Pancreatic cancer Diabetes Heart disease Lung cancer Hypertension Colon cancer Mother Hypertension Brother No problems noted. Brother Cancer Brother Sleep apnea Myocardial infarction Brother Sleep apnea Other Arthritis Asthma Surgical History History of cataract extraction History of cholecystectomy History of colonoscopy History of hysterectomy History of right breast biopsy ( 03/2022) History of umbilical hernia repair Social History household members: 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 housing: house Smoking Status: Never smoker alcohol intake: never substance use type: does not use what type of physical activity do you participate in: none seatbelt use: always do you feel safe at home: Yes ROS ROS ED Constitutional Constitutional ED: Reports fatigue, malaise, weakness, weight loss and other Details: Several pound weight loss in the past week since has been diuresing ; Denies chills or fever(s) Eyes Eyes: Denies change in vision or diplopia ENT ENT ED: Denies rhinorrhea or sore throat Cardiovascular Cardiovascular: Reports lightheadedness; Denies chest pain or palpitations Respiratory/Chest Respiratory/Chest: Reports dyspnea; Denies cough Gastrointestinal Gastrointestinal: Reports as per HPI and nausea; Denies diarrhea or vomiting Genitourinary Genitourinary ED: Reports urinary frequency; Denies dysuria or hematuria Musculoskeletal Musculoskeletal: Denies back pain, myalgias or neck pain Integumentary Denies abscess or rash Neurologic Neurologic: Denies headache(s), paresthesias or weakness Psychiatric Psychiatric: Denies anxiety or suicidal thoughts Endocrine Endocrinology: Reports polyuria; Denies polydipsia EXAM Physical Exam Const Vital Signs: 07/13/22 18:49 07/13/22 18:53 07/13/22 20:53 Temperature 97.7 F L Temperature Source Temporal Pulse Rate 89 84 Respiratory Rate 18 11 L Respiratory Effort Normal Respiratory Pattern Normal Blood Pressure 175/62 H 162/63 H Blood Pressure Mean 99 96 Pulse Ox 98 94 Oxygen Delivery Method Room Air Room Air 07/13/22 22:00 07/14/22 00:00 Temperature Temperature Source Pulse Rate 85 84 Respiratory Rate 10 L 14 Respiratory Effort Respiratory Pattern Blood Pressure 167/64 H 186/72 H Blood Pressure Mean 98 110 Pulse Ox 93 94 Oxygen Delivery Method Room Air Room Air Positive well nourished, well developed and obese Constitutional Narrative: Appears very malaised but in no distress General Appearance ED: well developed and NAD Nutritional Appearance: obese HEENT Reports moist mucous membranes normocephalic and atraumatic Eyes PERRL and EOMs intact bilaterally Neck full ROM, no lymphadenopathy, supple and no JVD Resp normal respiratory effort and clear to auscultation bilaterally Cardio regular rate, regular rhythm and no murmurs Rate: Negative for bradycardia or tachycardic GI non-distended GI Narrative: Tender medial aspect of the left lower quadrant. No other areas of focal tenderness. No guarding or rebound tenderness. Obesity limits the exam. Auscultation: normoactive bowel sounds Palpation: soft Back/Spine General Back: other FROM Extremity normal to inspection General Extremety ED: Yes edema; Negative for pulses abnormal or tenderness General Extremity: edema bilateral lower extremity Details: moderate; Negative for pulses abnormal Neuro oriented x3, CN's II-XII intact bilaterally and no sensory deficits noted Sensorium / Orientation: awake and alert Motor Exam: strength 5/5 throughout Psych Mood Affect: anxious Skin no rashes or lesions noted and no wounds MDM MDM MDM Narrative Medical decision making narrative: Other than mild hypercalcemia, which the patient has had before, and mild prerenal azotemia which is likely due to the patient's recent aggressive diuresis, her work-up is normal/negative. Her potassium was 4.4 and slight hemolysis is noted, it would be reasonable to repeat this which is ordered. Her creatinine is 1.28 which is similar to baseline for her, urine shows no signs of infection, 1 view chest x-ray shows atelectasis versus possible infection in her left lower lobe on my interpretation, however the CT of the abdomen/pelvis that viewed this area shows old scarring and no acute infection. The CT of the abdomen/pelvis showed known left adrenal mass, no acute inflammatory abnormalities. The mass is unchanged. Her blood pressure has remained high in the 160s throughout her stay here in the ED. She does not have any focal neurologic symptoms or deficits. Does not appear to be clinically or radiographically in any significant congestive heart failure. The patient lives alone, she feels too weak to safely go home and is requesting admission. Discussed with hospitalist. Repeat potassium is 4.8 but also shows hemolysis. Lab Data Attestation: I reviewed the patient's lab results. Labs: Laboratory Results - last 24 hr 07/13/22 07/13/22 07/13/22 19:06 19:06 20:49 WBC 8.7 RBC 4.42 Hgb 13.1 Hct 39.8 MCV 90.0 MCH 29.6 MCHC 32.9 RDW Std Deviation 44.9 H RDW Coeff of Pedro 13.4 Plt Count 271 MPV 11.1 Immature Gran % (Auto) 0.100 Neut % (Auto) 51.9 Lymph % (Auto) 36.5 Meriwether % (Auto) 7.9 Eos % (Auto) 2.7 Baso % (Auto) 0.9 Absolute Neuts (auto) 4.5 Absolute Lymphs (auto) 3.16 Nucleated RBC % 0 Sodium 138 Potassium 4.4 Chloride 105 Carbon Dioxide 27.0 Anion Gap 6 BUN 30 H Creatinine 1.28 H Estim Creat Clear Calc 24.25 Est GFR (MDRD) Af Amer 51 L Est GFR (MDRD) Non-Af 42 L BUN/Creatinine Ratio 23.4 H Glucose 101 Calcium 10.3 H Total Bilirubin 0.80 AST 19 ALT 25 Alkaline Phosphatase 69 Troponin I High Sens 15 Total Protein 7.4 Albumin 3.3 Globulin 4.1 Albumin/Globulin Ratio 0.8 L Lipase 127 Urine Color Straw Urine Clarity Clear Urine pH 7.0 Ur Specific Hayward 1.005 Urine Protein Negative Urine Glucose (UA) Normal Urine Ketones Negative Urine Occult Blood Negative Urine Nitrite Negative Urine Bilirubin Negative Urine Urobilinogen Normal Ur Leukocyte Esterase Negative Urine RBC 0 SEEN Urine WBC 0 SEEN Ur Squamous Epith Cells 0 SEEN Urine Bacteria 0 SEEN Urine Mucus 0 SEEN 07/13/22 23:40 WBC RBC Hgb Hct MCV MCH MCHC RDW Std Deviation RDW Coeff of Pedro Plt Count MPV Immature Gran % (Auto) Neut % (Auto) Lymph % (Auto) Meriwether % (Auto) Eos % (Auto) Baso % (Auto) Absolute Neuts (auto) Absolute Lymphs (auto) Nucleated RBC % Sodium Potassium 4.8 Chloride Carbon Dioxide Anion Gap BUN Creatinine Estim Creat Clear Calc Est GFR (MDRD) Af Amer Est GFR (MDRD) Non-Af BUN/Creatinine Ratio Glucose Calcium Total Bilirubin AST ALT Alkaline Phosphatase Troponin I High Sens Total Protein Albumin Globulin Albumin/Globulin Ratio Lipase Urine Color Urine Clarity Urine pH Ur Specific Hayward Urine Protein Urine Glucose (UA) Urine Ketones Urine Occult Blood Urine Nitrite Urine Bilirubin Urine Urobilinogen Ur Leukocyte Esterase Urine RBC Urine WBC Ur Squamous Epith Cells Urine Bacteria Urine Mucus Radiography Diagnostic Testing: Clinical Impression(s) from Imaging Studies Abdomen/Pelvis CT 07/13/22 20:13 IMPRESSION: 1. No masses bowel obstruction abscess fluid free air. 2. 2 ventral abdominal wall hernias without bowel involvement. Findings are stable. 3. Hiatal hernia. 4. Postop change of prior cholecystectomy. No ductal dilatation. 5. Enhancing LEFT adrenal nodule/mass without change. Consider short-term follow-up to assess stability, consider evaluation approximately 3-4 months, or tentatively evaluation with triple phase CT or MRI recommended. 6. No evidence of obstructive uropathy. LEFT renal atrophy. 7. RIGHT renal cyst without change. Electronically Signed: Justyn Mandujano MD at 21:48 EST Reading Location ID and State: [address] [place] [address] Tel , Service support , Chest X-Ray 07/13/22 21:10 IMPRESSION: 1. LEFT lower lobe atelectasis versus infiltrate with pleural thickening and small LEFT pleural effusion. 2. RIGHT lung is clear. 3. No congestive failure. Electronically Signed: Justyn Mandujano MD at 21:36 EST Reading Location ID and State: [facility] Tel , Service support , Rhythm Strip Rhythm Strip: Sinus Rhythm Rate: 85 Ectopy: None EKG Initial EKG: Attestation: I personally reviewed and interpreted this EKG as follows: Interpretation: Sinus Rhythm, No Acute Injury Pattern and AV Block (1st deg) Discharge Plan Dx/Rx/DC Orders Clinical Impression: Debility, Chronic kidney disease, stage 3a, Left adrenal mass, Hypercalcemia, Prerenal azotemia Disposition Disposition: Acute Care Hospital [facility] What to do if you have Problems For any increased pain, shortness of breath, bleeding, nausea or vomiting, chest pain, or any unexpected problems, contact your Primary Care Provider. Call [facility] ([phone]) or report to the closest Emergency Room. Call 911 if necessary. 07/14/22 0026 <Electronically signed by Anthony Davila MD> Cosigner Signature (if applicable): CC: Dr. Martina Lal, DO Signed Martina Lal DO Work Phone: Start: 07-13-2022 End: 07-13-2022 Abdomen/Pelvis without Cont Procedure Note: See Note; NOTES: [facility] Imaging Services [address] [place] [id number] Abdomen/Pelvis without Cont MR#: [id number] Acct: [id number] Name: DEBBIE MIRELES Rep #: [id number] : 1935 F 86 From: Justyn Chi PCP: Dr. Martina Lal, DO Status: REG ER Study: Abdomen/Pelvis without Cont Date of Exam: 06/21 11/09 Exam# [id number] Ordering Dr: Anthony Davila MD INDICATION: llq pain, nausea EXAMINATION: CT ABDOMEN AND PELVIS WITHOUT CONTRAST - CT Abdomen And Pelvis W/O Contrast Injection TECHNIQUE: Helically acquired images were obtained of the abdomen and pelvis without oral or IV contrast. A radiation dose optimization technique was used for this scan. IV Contrast dosage and agent: None. Oral contrast: None. RADIATION DOSAGE (If Supplied By Facility): CTDIvol = ( 20.93 ) mGy, DLP = ( 1066.72 ) mGycm COMPARISON: 02/25/2022 FINDINGS: LOWER CHEST: Mild pleural-parenchymal scar at the LEFT lower lobe. Cardiac contour is normal. Valvular calcifications are present.. Pericardial thickening versus trace pericardial effusion. LIVER: The liver has normal configuration and density given the limitation of noncontrast exam. No focal mass. GALLBLADDER AND BILIARY TREE: Status post cholecystectomy. No evidence of ductal dilatation. PANCREAS: No focal cystic or solid mass. SPLEEN: Normal size without focal cystic or solid mass. ADRENAL GLANDS: LEFT adrenal nodule measures 2.6 x 2.1 cm with Hounsfield density of 30 Hounsfield units. RIGHT adrenal gland is normal. KIDNEYS AND URETERS: LEFT renal atrophy, RIGHT renal cysts are present. No calcifications or evidence of obstructive uropathy. No hydronephrosis. PERITONEUM: No ascites or free air. No other fluid collection. BOWEL: No evidence of acute appendicitis. No stomach or bowel distention, hiatal hernia is present. No focal inflammatory change. Scattered diverticula present. LYMPH NODES: No enlarged mesenteric or retroperitoneal lymph nodes. VESSELS: Diffuse aortic calcifications present throughout the aorta. No evidence of aneurysmal dilatation. URINARY BLADDER: Unremarkable. REPRODUCTIVE ORGANS: Postop changes of prior hysterectomy. ABDOMINAL WALL: 2 anterior abdominal wall periumbilical and infrahilar periumbilical fat-containing hernias without bowel involvement. Findings are stable. BONES: No lytic or blastic abnormality. CT/Abdomen/Pelvis without Cont IMPRESSION: 1. No masses bowel obstruction abscess fluid free air. 2. 2 ventral abdominal wall hernias without bowel involvement. Findings are stable. 3. Hiatal hernia. 4. Postop change of prior cholecystectomy. No ductal dilatation. 5. Enhancing LEFT adrenal nodule/mass without change. Consider short-term follow-up to assess stability, consider evaluation approximately 3-4 months, or tentatively evaluation with triple phase CT or MRI recommended. 6. No evidence of obstructive uropathy. LEFT renal atrophy. 7. RIGHT renal cyst without change. Electronically Signed: Justyn Mandujano MD at 21:48 EST , CC: Dr. Anthony Davila MD; Dr. Martina Lal DO Assistant Project Manager: Signed Martina Lal DO Work Phone: Start: 07-13-2022 CT of abdomen and pelvis without contrast Dr. Martina Lal Work Phone: Start: 07-10-2022 End: 07-12-2022 Cardiology Visit Report Procedure Note: See Note; NOTES: [facility] [address] [place] [address]. [address] [place] [address] OFFICE VISIT Date of Service: 07/10/22 MR#: [id number] Acct: [id number] Name: DEBBIE MIRELES Rep #: [id number] : 1935 Provider: ERIKA perez Age/Sex: 86/F Location: [email or web address] Status: Signed [facility] History of Present Illness Details: DEBBIE MIRELES, is a 86 year old white female who presents to the office today for cardiovascular hospital follow-up visit. She was consulted while in the hospital based upon concerns of heart failure preserved ejection fraction CHF/diastolic mediated CHF superimposed upon a history of hyperlipidemia, hypertension, diabetes mellitus, carotid artery disease, and breast carcinoma status post recent right breast surgery with subsequent seroma/abscess status postevacuation on 05-15-2022 who presented for concerns of worsening shortness of breath/dyspnea and hypoxemia. The patient has been undergoing evaluation by multiple physicians for her multiple medical issues.??? From a cardiovascular standpoint she has undergone recent evaluation with a transthoracic echocardiogram on 05-20-2022.??? Per the report the left ventricle was normal with an LVEF of 60% with moderate concentric LVH and stage II diastolic dysfunction.??? There was mild MR and mild to moderate TR.??? A chest x-ray suggested mild pulmonary edema and small pleural effusions.??? Thus she had been treated medically with diuretic therapy. Patient was recently in the emergency room on 07/02/2022 with hypertension. While in the emergency room she was ambulated to the bathroom, where she became hypoxic. A chest x-ray was obtained and demonstrated bilateral atelectasis. She was then admitted to PCU for further evaluation. During admission she did have a bradycardic episode, and her carvedilol and hydralazine were placed on hold. Her bradycardic episode was thought to be vasovagal. She was later discharged from the hospital on her current dose of lisinopril, amlodipine, and furosemide. She was instructed to follow-up with cardiology and PCP. From a cardiac standpoint, the patient is doing well. She is accompanied by her daughter. She denies any palpitations, chest pain, pressure or heaviness. She does have an occasional SOB with walking longer distances. She denies Orthopnea, and PND. She does not have bleeding issues; no blood in urine, stool or nosebleeds. She denies any decrease in energy level, myalgias, or claudication. She does have bilateral lower extremity edema. She denies sudden weight gain. She denies dizziness, lightheadedness, syncopal or near syncopal episodes, and headaches. Patient is being followed by nephrology. Intake Vital Signs 07/04/22 11:57 07/10/22 12:54 07/10/22 12:54 Height 5 ft 1 in 5 ft 1 in 5 ft 1 in Weight: 222 lb BMI 41.9 BP 178/69 H Blood Pressure Location Lt brachial Position Sitting Respiration 20 H Pulse 80 Pulse Source Monitor Pulse Oximetry (%) 97 Intake Visit Reasons: s/p hosp - Wardrobe Mistress Required: No Is patient in pain?: No Allergies morphine Adverse Reaction (Intermediate, Verified 07/12/22 11:43) mental status change meperidine HCl [From Demerol] Adverse Reaction (Mild, Verified 07/12/22 11:43) mental status change Medications latanoprost 0.005 % eye drops (Xalatan) 1 drp EACH EYE QHS Cataracts/Dry eye 07/29/14 [History Confirmed 07/10/22] omega-3 fatty acids-fish oil 300 mg-1,000 mg capsule 1 ea PO DAILY SUPPLEMENT 07/29/14 [History Confirmed 07/10/22] aspirin 81 mg chewable tablet 81 mg PO DAILY HEART HEALTH 06/26/18 [History Confirmed 07/10/22] cholecalciferol (vitamin D3) 125 mcg (5,000 unit) capsule 125 mcg PO DAILY SUPPLEMENT 04/01/22 [History Confirmed 07/10/22] liver supplement 1 cap PO QHS SUPPLEMENT 04/01/22 [History Confirmed 07/10/22] sodium chloride 0.65 % nasal spray aerosol (Deep Sea Nasal) 2 spray NASAL TID PRN PRN NASAL DRYNESS #0 mL 05/23/22 [Rx Confirmed 07/10/22] melatonin 3 mg capsule 3 mg PO HS PRN Sleep 06/04/22 [History Confirmed 07/10/22] Colloidal Silver 1 tsp PO DAILY SUPPLEMENT 06/11/22 [History Confirmed 07/10/22] cinnamon bark 500 mg capsule (Cinnamon) 500 mg PO DAILY SUPPLEMENT 06/11/22 [History Confirmed 07/10/22] ondansetron 4 mg disintegrating tablet 4 mg PO UD PRN nausea/vomiting 06/11/22 [History Confirmed 07/10/22] anastrozole 1 mg tablet 1 mg PO DAILY #90 tabs 06/18/22 [Rx Confirmed 07/10/22] acetaminophen 500 mg tablet 1,000 mg PO Q6H PRN Pain 07/02/22 [History Confirmed 07/10/22] amlodipine 10 mg tablet 10 mg PO DAILY blood pressure 07/02/22 [History Confirmed 07/10/22] ascorbic acid (vitamin C) 500 mg tablet 500 mg PO BID supplement 07/02/22 [History Confirmed 07/10/22] famotidine 20 mg tablet (Pepcid) 20 mg PO DAILY acid reflux 07/02/22 [History Confirmed 07/10/22] furosemide 40 mg tablet 40 mg PO DAILY FLUID 07/02/22 [History Confirmed 07/10/22] lisinopril 20 mg tablet 20 mg PO DAILY BLOOD PRESSURE 07/02/22 [History Confirmed 07/10/22] lorazepam 0.5 mg tablet 0.5 mg PO DAILY PRN Anxiety 07/02/22 [History Confirmed 07/10/22] polyethylene glycol 3350 17 gram oral powder packet 17 g PO QHS STOOL 07/02/22 [History Confirmed 07/10/22] potassium chloride 20 mEq tablet,extended release 20 meq PO DAILY #30 tabs 07/07/22 [Rx Confirmed 07/10/22] doxazosin 2 mg tablet (Cardura) 2 mg PO DAILY #30 tabs 07/10/22 [Rx Confirmed 07/10/22] PFSH Medical History (Reviewed 07/12/22 @ 11:43 by Rama Camara 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, 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-C) Abnormal cardiac enzyme level Ambulates with cane Arthritis Bilateral carotid artery stenosis Bilateral extracranial carotid artery stenosis Breast abscess Breast cancer, right breast ( 03/2022) Cancer CHF (congestive heart failure) Difficulty swallowing Encounter for education GERD (gastroesophageal reflux disease) History of edema History of IBS History of renal disease History of steroid therapy HLD (hyperlipidemia) HTN (hypertension) Hyperlipidemia Hypertension Infected seroma, postoperative Left adrenal mass Leg cramps Non-smoker PONV (postoperative nausea and vomiting) Shortness of breath on exertion Sleep apnea Stage 3a chronic kidney disease (CKD) Type 2 diabetes mellitus Wears glasses Wears hearing aid Surgical History History of cataract extraction History of cholecystectomy History of colonoscopy History of hysterectomy History of right breast biopsy ( 03/2022) History of umbilical hernia repair Family History Brother Pancreatic cancer Diabetes Heart disease Lung cancer Hypertension Colon cancer Mother Hypertension Brother No problems noted. 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 housing: house Smoking Status: Never smoker alcohol intake: never substance use type: does not use what type of physical activity do you participate in: none seatbelt use: always do you feel safe at home: Yes ROS Const Const: Negative for fatigue, weakness, fever(s), headache(s), chills, frequent falls, weight gain or weight loss Eyes Eyes: Negative for blind spots, loss of peripheral vision, transient loss of vision, blurry vision, change in vision, double vision, floaters or tunnel vision ENT ENT: Negative for headache(s), dizziness, Nosebleed/epistaxis, balance problems or neck pain Cardio Chest Pain: No Palpitations: No Edema: Bilateral Muscle aches with walking: None Resp Respiratory: Positive for SOB with activity (occasional with walking longer distances); Negative for SOB at rest or SOB orthopnea SOB lying down GI GI: Negative nausea, vomiting, heartburn, bloating, vomiting blood/hematemesis, bright, red blood in stools or black,tarry stools Musc Musc: Negative for muscle aches/ myalgia, muscle weakness, joint pain or balance problems Neuro Neuro: Negative for dizziness, lightheadedness, near syncope, syncope, orthostatic symptoms, frequent falls, headache(s), weakness, blurry vision or double vision Star Hematologic/Lymphatic: Negative for easy bleeding or easy bruising Endo Endo: Negative for fatigue Cardiology Exam Const Appearance: cooperative and no acute distress Nutritional Appearance: obese Orientation: alert and oriented x3 Head Head: normal to inspection Ears: hearing grossly normal bilaterally Nose: external nose normal Face and Sinus: face symmetric Eyes General: appearance normal, both eyes and all related structures Eyelids: eyelids normal Conjunctivae: conjunctivae normal Pupils: PERRL and pupil size EOM: EOM intact bilaterally Neck Neck: normal visual inspection Carotids: Negative bruit Chest Chest inspection: normal inspection of the chest and normal respiratory effort Auscultation: Bilateral: Clear to Auscultation Cardio Palpation: normal PMI Rate: regular rate Rhythm: regular rhythm Heart sounds: S1 normal and S2 normal; Negative rub, gallop or murmur GI GI: normal to inspection, soft and obese; Negative no hepatosplenomegaly Neuro General: patient alert, patient oriented x3 and CN's II-XI intact bilaterally Skin Skin: no rashes or lesions noted Extremities Pulses: Normal: Right Posterior Tibial Pulse, Left Posterior Tibial Pulse, Right Radial Pulse and Left Radial Pulse Lower Extremity Edema: Trace: Bilateral Psych Psychological: normal affect Supplemental Info Supplemental Information Echocardiogram 05/20/2022: Interpretation Summary Left ventricular systolic function is normal. The estimated ejection fraction is 60 %. Normal size and thickness. Moderate concentric left ventricular hypertrophy. Stage 2 diastolic dysfunction. Carotid Duplex 10/12/2021: Interpretation Summary Mild irregular plaque of the proximal right internal carotid artery with less than 50% stenosis Greater than 50% stenosis right external carotid artery Irregular calcific plaque left common carotid and proximal internal carotid artery. 50 to 69% stenosis of the left internal carotid artery. Greater than 50% stenosis left external carotid artery Patent and antegrade vertebral arteries bilaterally Findings appear similar to the previous examination of June 19, 2018 Labs: LDL Cholesterol 102 mg/dL (0-130) HDL Cholesterol 40 mg/dL (40-) Triglycerides 137 mg/dL (-199) VLDL Cholesterol 27 mg/dL (5-40) Diagnostics: Electrocardiogram Echocardiogram Chest X-Ray Pulmonary: No Data to Display Assessment and Plan Assessment and Plan (1) Bradycardia: Status: Acute Plan: Patient was bradycardic at her most recent hospital visit. Her carvedilol and hydralazine were discontinued at that time. Her heart rate in the office today is 80. We will obtain a 24 hour Holter monitor to evaluate her heart rate and rhythm. Depending on results, further recommendations will be made. (2) Hypertension: Status: Chronic Plan: Patient has a history of hypertension. Her blood pressure is elevated in the office today. She will be asked to start Cardura 2mg daily, along with lisinopril 20mg daily, amlodipine 10mg daily, and Lasix 40mg daily. She will monitor her blood pressures at home, and notify our office of updated blood pressure readings in 2 weeks. If deemed appropriate, we may need to increase Cardura to 4mg daily. (3) Diastolic congestive heart failure: Status: Acute Plan: Patient has a history of diastolic congestive heart failure. Her most recent echocardiogram from 05/20/2022 demonstrated an ejection fraction of 60%, and stage II diastolic dysfunction. She appears stable at this time, and denies any recent symptoms or events. She will continue with her current medical therapy, along with monitoring for any concerning symptoms. (4) Chronic kidney disease, stage 3a: Status: Chronic Plan: Patient has a history of chronic kidney disease. She will continue to follow with nephrology for this. (5) ABDI (obstructive sleep apnea): Status: Acute Plan: Patient has a history of obstructive sleep apnea. This is untreated. At this time, patient continues to refuse therapy. (6) Bilateral carotid artery stenosis: Status: Chronic Plan: Patient has a history of bilateral carotid artery stenosis. Her most recent carotid ultrasound from 10/12/2021 was reviewed with her. We will continue to monitor this. Orders: Orders Cardiac Holter Monitor, 24 Hrs 07/10/22 R00.1 - Bradycardia, unspecified Medications: New doxazosin (Cardura) 2 mg PO DAILY 30 tabs 6RF Plan Details Additional Comments: Patient will follow up in 3 months, or sooner if needed. Thank you for allowing me to participate in the care of your patient. Please don't hesitate to call if any issues arise. This note was generated using a voice recognition system and there may be incorrect words, spelling, or punctuation that were not noted when reviewing the office note prior to saving. Portions of this documentation were copied and pasted from previous office visit notes to provide a cohesive continuity of the history. The note has been reviewed, edited, and updated, as necessary. Follow Up: Keep as is (KR) Coding Level of Care Code Off vis,est,level 4 Diagnoses Bradycardia R00.1 Hypertension I10 Diastolic congestive heart failure I50.30 Chronic kidney disease, stage 3a N18.31 ABDI (obstructive sleep apnea) G47.33 Bilateral carotid artery stenosis I65.23 Coding Level of Care Code Off vis,est,level 4 Diagnoses Bradycardia R00.1 Hypertension I10 Diastolic congestive heart failure I50.30 Chronic kidney disease, stage 3a N18.31 ABDI (obstructive sleep apnea) G47.33 Bilateral carotid artery stenosis I65.23 07/12/22 1150 <Electronically signed by Rama Camara NP 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-C> Date Rama Camara NP, NP-C Cosigner Signature: Date (if applicable) CC: DO Martina Swan DO Work Phone: Start: 07-02-2022 End: 07-02-2022 Chest 1 View (Portable) Procedure Note: See Note; NOTES: [facility] Imaging Services [address] [place] [address] Chest 1 View (Portable) MR#: [id number] Acct: [id number] Name: DEBBIE MIRELES Rep #: [id number] : 1935 F 86 From: Justyn Alcala MD PCP: Dr. Martina Lal DO Status: REG ER Study: Chest 1 View (Portable) Date of Exam: 07/02/22 Exam# [id number] Ordering Dr: Zeferino Kingsley MD STUDY: X-RAY CHEST REASON FOR EXAM: Female, 86 years old. shortness of breath TECHNIQUE: Single AP portable view of the chest. COMPARISON: 05/19/2022 FINDINGS: Poor inspiration with some bibasilar atelectasis There is no demonstrated pleural abnormality. There is moderate cardiac enlargement. Normal mediastinum and tomasa. Normal visualized pulmonary arteries. Normal visualized aortic arch and descending thoracic aorta. Normal visualized thoracic spine. Normal visualized ribs, clavicles, and shoulders. There is no demonstrated abnormality of the visualized soft tissue structures of the upper abdomen. RAD/Chest 1 View (Portable) IMPRESSION: Poor inspiration with some bibasilar atelectasis. Electronically Signed: Jutsyn Alcala MD at 10:52 EST , CC: Dr. Zeferino Kingsley MD; Dr. Martina Lal DO Assistant Project Manager: Signed Martina Lal DO Work Phone: Start: 07-02-2022 Plain chest X-ray Dr. Martina Lal Work Phone: Start: 07-02-2022 End: 07-02-2022 Emergency Department Summary Procedure Note: See Note; NOTES: [facility] Medical Records Department [address] [place] [address] Emergency Department Summary 07/02/22 MR#: [id number] Acct: [id number] Name: DEBBIE MIRELES Rep #: [id number] : 1935 86 From: Zeferino Kingsley MD PCP: Dr. Martina Lal, DO Status:REG ER Location: ED HPI History of Present Illness Chief Complaint: Hypertension Narrative Narrative: 86-year-old female past medical history of hypertension presents with her daughter because of elevated blood pressure this morning. They state that she is on 3 or 4 medications for her high blood pressure. She was discharged from the TCU approximately a month ago. She started taking hydralazine which makes her very nauseated. Additionally, her daughter states that they are trying to work up her nausea while she was in the transitional care unit but never had a real reason why. This morning, before she took her multiple medications for her blood pressure, it was elevated in the 200s systolically. She took her medications which made her nauseated. She states she had a rough night daughter notes that she has been having elevated blood pressures in the morning. They recently added back her lisinopril. She also takes amlodipine. She denies any chest pain or shortness of breath. She does have past medical history of chronic renal failure, stage IIIa, but her creatinine has improved recently to 1.0. She was told by her kidney doctor to take Lasix 20 mg once a day last evening, but she did not take it till this morning. She presents because of the shakiness and the nausea along with the reported elevated blood pressure over 200. [facility] Medical History Abnormal cardiac enzyme level Ambulates with cane Arthritis Bilateral carotid artery stenosis Bilateral extracranial carotid artery stenosis Breast abscess Breast cancer, right breast ( 03/2022) Cancer CHF (congestive heart failure) Difficulty swallowing Encounter for education GERD (gastroesophageal reflux disease) History of edema History of IBS History of renal disease History of steroid therapy HLD (hyperlipidemia) HTN (hypertension) Hyperlipidemia Hypertension Infected seroma, postoperative Left adrenal mass Leg cramps Non-smoker PONV (postoperative nausea and vomiting) Shortness of breath on exertion Sleep apnea Stage 3a chronic kidney disease (CKD) Type 2 diabetes mellitus Wears glasses Wears hearing aid Home Medications latanoprost 0.005 % eye drops (Xalatan) 1 drp EACH EYE QHS Cataracts/Dry eye 07/29/14 [History Last Taken 09/24/18] omega-3 fatty acids-fish oil 300 mg-1,000 mg capsule 1 ea PO DAILY SUPPLEMENT 07/29/14 [History Last Taken 09/25/18] nateglinide 60 mg tablet 60 mg PO TID BLOOD GLUCOSE 08/27/17 [History Last Taken 09/25/18 08:00] aspirin 81 mg chewable tablet 81 mg PO DAILY HEART HEALTH 06/26/18 [History Last Taken 09/24/18] cholecalciferol (vitamin D3) 125 mcg (5,000 unit) capsule 125 mcg PO DAILY SUPPLEMENT 04/01/22 [History Last Taken Unknown] liver supplement 1 cap PO QHS SUPPLEMENT 04/01/22 [History Last Taken Unknown] carvedilol 6.25 mg tablet 6.25 mg PO BID BP 05/23/22 [History Last Taken Unknown] hydralazine 50 mg tablet 100 mg PO TID BP 05/23/22 [History Last Taken Unknown] sodium chloride 0.65 % nasal spray aerosol (Deep Sea Nasal) 2 spray NASAL TID PRN PRN NASAL DRYNESS #0 mL 05/23/22 [Rx Last Taken Unknown] acetaminophen 500 mg tablet 1,000 mg PO Q6H PRN PRN Pain Score 1-5 #0 tabs 06/03/22 [Rx Last Taken Unknown] amlodipine 10 mg tablet 10 mg PO DAILY@0800 30 days #30 tabs 06/03/22 [Rx Last Taken Unknown] ascorbic acid (vitamin C) 500 mg tablet 1,500 mg PO DAILY #0 tabs 06/03/22 [Rx Last Taken Unknown] melatonin 3 mg capsule 3 mg PO HS PRN 06/04/22 [History Last Taken Unknown] Colloidal Silver PO DAILY 06/11/22 [History Last Taken Unknown] cinnamon bark 500 mg capsule (Cinnamon) 500 mg PO DAILY 06/11/22 [History Last Taken Unknown] famotidine 20 mg tablet (Pepcid) 20 mg PO DAILY 06/11/22 [History Last Taken Unknown] ondansetron 4 mg disintegrating tablet 4 mg PO Q4H 06/11/22 [History Last Taken Unknown] anastrozole 1 mg tablet 1 mg PO DAILY #90 tabs 06/18/22 [Rx Last Taken Unknown] amlodipine 5 mg tablet 10 mg PO DAILY 07/02/22 [History Last Taken Unknown] famotidine 20 mg tablet (Pepcid) 20 mg PO DAILY 07/02/22 [History Last Taken Unknown] furosemide 20 mg tablet 20 mg PO DAILY 07/02/22 [History Last Taken Unknown] lisinopril 20 mg tablet 20 mg PO DAILY 07/02/22 [History Last Taken Unknown] lorazepam 0.5 mg tablet 0.5 mg PO DAILY PRN Anxiety 07/02/22 [History Last Taken Unknown] Allergy/AdvReac Type Severity Reaction Status Date / Time morphine AdvReac Intermediate mental Verified 07/02/22 07:28 status change meperidine HCl [From Demerol] AdvReac Mild mental Verified 07/02/22 07:28 status change Family History Brother Pancreatic cancer Diabetes Heart disease Lung cancer Hypertension Colon cancer Mother Hypertension Brother No problems noted. 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 Elevated blood pressure. Shakiness. HEENT: No sore throat. No neck pain. No loss of vision. No rhinorrhea. Cardiovascular: No chest pain. No palpitations. No pedal edema. Respiratory: No cough, no shortness of breath. Abdominal: No abdominal pain. Positive nausea. No vomiting. Genitourinary: No dysuria. No hematuria. Musculoskeletal: No myalgias. No arthralgias. Neurologic: No headaches. No dizziness. No lightheadedness. Skin: No rash. No change in color. Psychiatric: No depression. No anxiety. EXAM Physical Exam Narrative Exam Narrative: Afebrile. Vital signs noted. HEENT: Normocephalic. Atraumatic. PERRL, EOMI. Neck soft and supple. No point tenderness or step off. Cardiovascular: Regular rate and rhythm. No murmurs, rubs, or gallops appreciated. Respiratory: No tachypnea. Lungs clear to auscultation bilaterally. Gastrointestinal: Abdomen soft, nontender, with normoactive bowel sounds. No rebound or guarding. Neurological: Awake. Alert. Nonfocal, nonlateralizing. Skin: No rash. Normal color. No pallor. Musculoskeletal: No pedal edema. Full range of motion extremities. Const Vital Signs: 07/02/22 07:26 07/02/22 07:51 07/02/22 08:55 Temperature 98.2 F Temperature Source Temporal Pulse Rate 65 Respiratory Rate 16 Respiratory Effort Normal Non-Labored Respiratory Pattern Normal Blood Pressure 178/54 H 161/58 H Blood Pressure Mean 95 92 Pulse Ox 95 Oxygen Delivery Method Room Air Oxygen Flow Rate (L/min) 07/02/22 10:17 07/02/22 10:17 07/02/22 11:17 Temperature Temperature Source Pulse Rate 58 L 57 L Respiratory Rate 16 14 Respiratory Effort Respiratory Pattern Blood Pressure 161/58 H 184/62 H Blood Pressure Mean 92 102 Pulse Ox 86 94 97 Oxygen Delivery Method Room Air Nasal Cannula Nasal Cannula Oxygen Flow Rate (L/min) 2 2.5 07/02/22 11:20 Temperature 98.5 F Temperature Source Oral Pulse Rate Respiratory Rate Respiratory Effort Respiratory Pattern Blood Pressure Blood Pressure Mean Pulse Ox Oxygen Delivery Method Oxygen Flow Rate (L/min) MDM MDM MDM Narrative Medical decision making narrative: Blood pressure is currently 178/54. I will check basic laboratory work. She was administered ondansetron intravenously. EKG interpreted by myself demonstrates normal sinus rhythm with first- degree AV block at 60 bpm without ectopy or acute ST changes. No STEMI. No significant change from previous. CBC shows normal white count of 8.5, hemoglobin normal at 12.3, platelet count normal at 272. Electrolyte panel shows a BUN of 21 with a creatinine of 1.25, consistent with her chronic kidney disease. AST and ALT are grossly unremarkable except for an AST low at 12. Urinalysis shows negative ketones and no evidence of infection with 0 WBCs. I do not feel that antibiotics are indicated. Her blood pressure is labile and it elevated to 187 systolic after being low. She was administered the ondansetron for her nausea which she takes at home. She feels that it is the hydralazine that is causing her problems. Per RN, when she ambulated to the bathroom, she became hypoxic in the high 80s and does not wear oxygen at home. She was placed on 2 L nasal cannula oxygen. I obtained a chest x-ray and interpreted it. My interpretation shows bilateral atelectasis. This may be fluffy infiltrates from CHF as her daughter states that when she was in the TCU she was diagnosed with CHF and hence she occasionally will take Lasix as recommended also by her kettle worker. I added a BNP. Given her hypoxia and labile blood pressure, I discussed the patient with Dr. Gamez for observation in the PCU. She requested that I obtain respiratory swabs. These are pending. Disposition is observed in PCU in stable condition. Lab Data Attestation: I reviewed the patient's lab results. Labs: Laboratory Results - last 24 hr 07/02/22 07/02/22 07/02/22 08:11 08:11 10:15 WBC 8.5 RBC 4.12 L Hgb 12.3 Hct 36.9 L MCV 89.6 MCH 29.9 MCHC 33.3 RDW Std Deviation 46.8 H RDW Coeff of Pedro 14.2 Plt Count 272 MPV 10.0 Immature Gran % (Auto) 0.200 Neut % (Auto) 57.9 Lymph % (Auto) 30.0 Meriwether % (Auto) 8.8 Eos % (Auto) 2.4 Baso % (Auto) 0.7 Absolute Neuts (auto) 4.9 Absolute Lymphs (auto) 2.55 Nucleated RBC % 0 Sodium 136 Potassium 4.4 Chloride 105 Carbon Dioxide 26.0 Anion Gap 5 BUN 21 H Creatinine 1.25 H Estim Creat Clear Calc 24.83 Est GFR (MDRD) Af Amer 52 L Est GFR (MDRD) Non-Af 43 L BUN/Creatinine Ratio 16.8 Glucose 149 H Calcium 10.1 Total Bilirubin 1.10 H AST 12 L ALT 24 Alkaline Phosphatase 67 Total Protein 7.2 Albumin 3.3 Globulin 3.9 Albumin/Globulin Ratio 0.8 L Urine Color Yellow Urine Clarity Clear Urine pH 6.5 Ur Specific [place] 1.010 Urine Protein Negative Urine Glucose (UA) Normal Urine Ketones Negative Urine Occult Blood Negative Urine Nitrite Negative Urine Bilirubin Negative Urine Urobilinogen Normal Ur Leukocyte Esterase 25 H Urine RBC 0 SEEN Urine WBC 0 SEEN Ur Squamous Epith Cells 0-5 SEEN Urine Bacteria 0 SEEN Urine Mucus 0 SEEN Radiography Diagnostic Testing: Clinical Impression(s) from Imaging Studies Chest X-Ray 07/02/22 10:40 IMPRESSION: Poor inspiration with some bibasilar atelectasis. Electronically Signed: Justyn Alcala MD at 10:52 EST Reading Location ID and State: [facility] / [place] Tel , Service support , Discharge Plan Dx/Rx/DC Orders Clinical Impression: Labile blood pressure, Hypoxia, Shakiness, Nausea Disposition Disposition: Acute Care Hospital [facility] What to do if you have Problems For any increased pain, shortness of breath, bleeding, nausea or vomiting, chest pain, or any unexpected problems, contact your Primary Care Provider. Call [facility] ([phone]) or report to the closest Emergency Room. Call 911 if necessary. 07/02/22 1144 <Electronically signed by Zeferino Kingsley MD> Cosigner Signature (if applicable): CC: Dr. Martina Lal, DO Signed Martina Lal DO Work Phone: Start: 06-18-2022 End: 06-18-2022 Oncology Visit Report Procedure Note: See Note; NOTES: [facility] [address] [place] [address] OFFICE VISIT Date of Service: 06/18/22 1434 MR#: [id number] Acct: [id number] Name: CHIDEBBIE Jana Rep #: [id number] : 1935 From: Susan Shawanda 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 -C Age/Sex: 86/F Location: [email or web address] Status: Signed HPI Subjective Date of Service 06/18/22 Chief Complaint Education visit-anastrozole History of Present Illness 86-year-old female with multiple chronic medical problems including diabetes, hypertension, dyslipidemia, chronic congestive heart failure, chronic renal failure, diverticular disease: Morbid obesity, obstructive sleep apnea, cerebrovascular disease and degenerative joint disease. In February 2022 she had an episode of abdominal pain and on a CAT scan of the abdomen and pelvis showed an incidental abnormality in the right breast which prompted a screening mammogram (she has had none for many years) and a biopsy. February 25, [address]: IMPRESSION: 1.??? Nonvisualization the appendix.??? There is no right lower quadrant inflammatory change. 2.??? Ventral hernias. 3.??? Hiatal hernia. 4.??? Colonic diverticulosis without acute inflammatory change. 5.??? Left adrenal enhancing mass.??? This does not have the appearance of an adenoma.??? Follow-up required. 6.??? 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 7.??? Multiple right renal cysts.??? These require no further follow-up. 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 ANTIBODY / CLONE RESULT E-Cad (ECH-6) positive CK8 (86zfboV86) positive Calponin-1 (YA112K) negative CK5-6 (D5 1684) negative P40 (BC28) negative P53 (DO-7) positive, rare cells, weak Ki-67 (30-9) positive, low, 15% MORPHOMETRIC ANALYSIS ER (clone 6F11) >95%, strong intensity WI (clone 16/1E2) 52%, weak to moderate intensity Her-2Neu (clone CB11) 0 April 30, 2022 right partial mastectomy with sentinel lymph node biopsy: MICROSCOPIC DIAGNOSIS A. Right axillary sentinel lymph nodes, biopsy: Two out of two lymph nodes, negative for carcinoma. B. Right breast mass, lumpectomy: Invasive ductal (mucinous) carcinoma. COMMENT A. Immunohistochemistry ([id number]) supports the above diagnosis. INVASIVE BREAST CANCER SUMMARY: Procedure - excision with wire guidance Specimen: Type - partial breast Size ??? 8 x 5 x 4 cm Laterality ??? right breast Tumor: Site ??? not specified Size ??? 2.5 x 2 x 1.5 cm Histologic type - invasive ductal (mucinous) carcinoma. Focality - single focus Histologic Grade (Lonny grade): Glandular/tubular differentiation - score 2 Nuclear pleomorphism - score 2 Mitotic count ??? score 1 Overall grade - 1 (score of 5) Ductal carcinoma in situ: Present Estimated quantification (% of tumor volume) ??? 5% Number of blocks - 3 of 12 blocks Architectural patterns ??? solid and cribriform Nuclear grade ??? grade 1 Necrosis ??? not present Lobular carcinoma in situ (LCIS) ??? not present Tumor extension: Skin ??? not applicable Nipple - not applicable Skeletal muscle - not applicable Margins: Distance of invasive carcinoma from closest margin ??? 0.5 mm from posterior margin. Distance of in situ carcinoma from closest margin - 0.5 mm from posterior margin. Lymph nodes: Number of lymph nodes examined - 2 Number of sentinel lymph nodes - 2 Number of lymph nodes with macrometastases, micrometastases and isolated tumor cells ??? 0 See specimen A. Treatment effect: Unknown Lymphvascular invasion ??? not identified Additional pathologic findings ??? fibrocystic change with associated microcalcifications. Usual intraductal hyperplasia without atypia. Ancillary studies - previously performed on section of tumor ([id number] / [id number]). ER ??? positive (>95%, strong intensity) WI - positive ( 52%, weak to moderate intensity) Her2 lc ??? negative (0) Her2 by dual CONNIE - not performed Ki67 ??? positive (15%) Microcalcifications ??? present in invasive carcinoma and benign breast tissue. Clinical history ??? Mass of breast. PATHOLOGIC STAGE: T2 N0 Mx May 06, 2022 bone scan: IMPRESSION: 1.??? Enhanced tracer concentration visualized in the left elbow and left wrist, bilateral shoulders, both knee articulations, right-left midfoot. 2.??? There is no definitive scintigraphic evidence of skeletal metastatic disease. May 14, 2022 CT chest: FINDINGS: LUNGS AND PLEURAL SPACES:??? Minimal left pleural effusion.??? Bibasilar atelectasis, greater on the left.??? No pulmonary nodules.??? No pneumothorax. HEART: Extensive coronary artery calcification.??? Trace of pericardial fluid. MEDIASTINUM:??? Minimal hiatal hernia.??? Normal sized mediastinal lymph nodes. No mediastinal adenopathy. THYROID:??? Unremarkable.??? No thyroid lesions. BONES/JOINTS:??? Thoracic degenerative spurring.??? Accentuated thoracic kyphosis.??? Fusion of most of the thoracic facet joints.??? No acute fracture. No suspicious lytic or blastic abnormality. SOFT TISSUES:??? Within the right axillary region is a thin-walled fluid collection of water attenuation, measuring 8.4 cm in cephalocaudal dimension by 5.5 cm in AP diameter by 3.6 cm in transverse diameter.??? This fluid collection shows no internal air bubbles or surrounding fat stranding, and is consistent with seroma.??? There are adjacent surgical clips. More inferiorly, within the inferior lateral right breast, is a larger fluid collection which shows a thickened wall, internal air bubbles and surrounding fat stranding; this more inferior fluid collection measures 6.7 cm in transverse diameter by 5.7 cm in cephalocaudal dimension by 5.6 cm in AP diameter.??? Small surgical clips are noted about this fluid collection. There is mild overlying skin thickening. VASCULATURE:??? Thoracic aorta is calcific and is normal in caliber.??? No aneurysm or intimal calcification displacement. UPPER ABDOMEN Gallbladder is absent.??? Visualized portions of the liver, spleen, pancreas, and right adrenal gland are unremarkable.??? Left adrenal gland contains a 2.3 cm isodense nodule with CT attenuation of 46, unchanged as compared to prior CT of 03/11. KIDNEYS AND URETERS:??? The left kidney remains small/atrophic.??? At the upper pole the right kidney is a 1.8 cm exophytic nodule of water attenuation, consistent with simple cyst,, unchanged, and which requires no follow-up. INTRAPERITONEAL SPACE:??? No pneumoperitoneum is noted. IMPRESSION: Findings consistent with 8.4 cm seroma within the right axilla.??? More inferiorly, a thick-walled 6.7 cm fluid collection with internal air bubbles and surrounding fat stranding is noted within the inferior-lateral right breast, consistent with abscess.??? Nonstandard communication protocol initiated. Interval History Patient is presenting to clinic today accompanied by adult daughter and adult son for an education visit. [facility] Medical History (Updated 06/18/22 @ 17:26 by Susan Mayberry 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, 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-C) Abnormal cardiac enzyme level Ambulates with cane Arthritis Bilateral carotid artery stenosis Bilateral extracranial carotid artery stenosis Breast abscess Breast cancer, right breast ( 03/2022) Cancer CHF (congestive heart failure) Difficulty swallowing Encounter for education GERD (gastroesophageal reflux disease) History of edema History of IBS History of renal disease History of steroid therapy HLD (hyperlipidemia) HTN (hypertension) Hyperlipidemia Hypertension Infected seroma, postoperative Left adrenal mass Leg cramps Non-smoker PONV (postoperative nausea and vomiting) Shortness of breath on exertion Sleep apnea Stage 3a chronic kidney disease (CKD) Type 2 diabetes mellitus Wears glasses Wears hearing aid Surgical History (Reviewed 06/12/22 @ 21:53 by Rama Camara 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, 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-C) History of cataract extraction History of cholecystectomy History of colonoscopy History of hysterectomy History of right breast biopsy ( 03/2022) History of umbilical hernia repair Family History Brother Pancreatic cancer Diabetes Heart disease Lung cancer Hypertension Colon cancer Mother Hypertension Brother No problems noted. Brother Cancer Brother Sleep apnea Myocardial infarction Brother Sleep apnea Other Arthritis Asthma Social History (Reviewed 06/12/22 @ 21:53 by Rama Camara 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, 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-C) household members: 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 housing: house Smoking Status: Never smoker alcohol intake: never substance use type: does not use what type of physical activity do you participate in: none seatbelt use: always do you feel safe at home: Yes ROS Constitutional Constitutional: Reports systems reviewed and no addt'l complaints, except as documented; Denies fever(s) or weight loss Eyes Eyes: Reports systems reviewed and no addt'l complaints, except as documented ENT HEENT: Reports systems reviewed and no addt'l complaints, except as documented Cardiovascular Cardiovascular: Reports systems reviewed and no addt'l complaints, except as documented and edema; Denies chest pain Respiratory/Chest Respiratory/Chest: Reports systems reviewed and no addt'l complaints, except as documented and dyspnea on exertion; Denies hemoptysis Gastrointestinal Gastrointestinal: Reports systems reviewed and no addt'l complaints, except as documented, fecal incontinence and other Details: Fecal incontinence is occasional urge ; Denies hematochezia or melena Genitourinary Genitourinary: Reports systems reviewed and no addt'l complaints, except as documented and urinary incontinence; Denies hematuria Musculoskeletal Musculoskeletal: Reports systems reviewed and no addt'l complaints, except as documented, arthralgias and back pain Integumentary Integumentary: Reports systems reviewed and no addt'l complaints, except as documented and unusual bruising; Denies non-healing lesions Neurologic Neurologic: Reports systems reviewed and no addt'l complaints, except as documented, headache(s), paresthesias RLE and LLE and other Details: Chronic occasional headaches and 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 Psychiatric Psychiatric: Reports systems reviewed and no addt'l complaints, except as documented Endocrine Endocrinology: Reports systems reviewed and no addt'l complaints, except as documented Hematologic/Lymphatic Hematologic/Lymphatic: Reports systems reviewed and no addt'l complaints, except as documented and easy bruising; Denies lymphadenopathy Allergic/Immunologic Allergic/Immunologic: Reports systems reviewed and no addt'l complaints, except as documented Intake Vital Signs 06/11/22 15:55 06/18/22 14:34 Height 5 ft 1 in 5 ft 1 in Intake Wardrobe Mistress Required: No Accompanied by: Daughter Is patient in pain?: No Allergies morphine Adverse Reaction (Intermediate, Verified 06/18/22 14:43) mental status change meperidine HCl [From Demerol] Adverse Reaction (Mild, Verified 06/18/22 14:43) mental status change Medications latanoprost 0.005 % eye drops (Xalatan) 1 drp EACH EYE HS Cataracts/Dry eye 07/29/14 [History Confirmed 06/18/22] omega-3 fatty acids-fish oil 300 mg-1,000 mg capsule 1 ea PO DAILY SUPPLEMENT 07/29/14 [History Confirmed 06/18/22] nateglinide 60 mg tablet 60 mg PO TID BLOOD GLUCOSE 08/27/17 [History Confirmed 06/18/22] aspirin 81 mg chewable tablet 81 mg PO DAILY HEART HEALTH 06/26/18 [History Confirmed 06/18/22] cholecalciferol (vitamin D3) 125 mcg (5,000 unit) capsule 125 mcg PO DAILY SUPPLEMENT 04/01/22 [History Confirmed 06/18/22] liver supplement 1 cap PO QHS SUPPLEMENT 04/01/22 [History Confirmed 06/18/22] carvedilol 6.25 mg tablet 6.25 mg PO BID BP 05/23/22 [History Confirmed 06/18/22] hydralazine 50 mg tablet 100 mg PO TID BP 05/23/22 [History Confirmed 06/18/22] sodium chloride 0.65 % nasal spray aerosol (Deep Sea Nasal) 2 spray NASAL TID PRN PRN NASAL DRYNESS #0 mL 05/23/22 [Rx Confirmed 06/18/22] acetaminophen 500 mg tablet 1,000 mg PO Q6H PRN PRN Pain Score 1-5 #0 tabs 06/03/22 [Rx Confirmed 06/18/22] amlodipine 10 mg tablet 10 mg PO DAILY@0800 30 days #30 tabs 06/03/22 [Rx Confirmed 06/18/22] ascorbic acid (vitamin C) 500 mg tablet 1,500 mg PO DAILY #0 tabs 06/03/22 [Rx Confirmed 06/18/22] melatonin 3 mg capsule 3 mg PO HS PRN 06/04/22 [History Confirmed 06/18/22] Colloidal Silver PO DAILY 06/11/22 [History Confirmed 06/18/22] cinnamon bark 500 mg capsule (Cinnamon) 500 mg PO DAILY 06/11/22 [History Confirmed 06/18/22] famotidine 20 mg tablet (Pepcid) 20 mg PO DAILY 06/11/22 [History Confirmed 06/18/22] ondansetron 4 mg disintegrating tablet 4 mg PO Q4H 06/11/22 [History Confirmed 06/18/22] anastrozole 1 mg tablet 1 mg PO DAILY #90 tabs 06/18/22 [Rx Confirmed 06/18/22] Central Venous Access Central Venous Access: No Exam Physical Exam Narrative ECOG 2, seen in a wheelchair Const alert, oriented x3 and no apparent distress General Appearance: anxious Nutritional Appearance: morbidly obese HEENT General Ear: hearing grossly impaired Teeth and Gingiva: poor dentition Neck no lymphadenopathy and no JVD Psych Psych Narrative: Anxious Coding Level of Care Code Off vis,est,level 5 Exam Problem Focused Diagnoses Breast cancer, right breast C50.911 Left adrenal mass E27.8 Encounter for education Z71.9 Assessment and Plan Assessment and Plan (1) Breast cancer, right breast: Status: Acute (2) Left adrenal mass: Status: Chronic Comment: CT February 2022 (3) Encounter for education: Status: Acute Medications: New anastrozole 1 mg PO DAILY 90 tabs 1RF Discontinued tramadol Discontinued Reason: Pt no longer taking 50 mg PO Q6H PRN furosemide Discontinued Reason: Pt no longer taking 40 mg PO DAILY 30 days 30 tabs 0RF lisinopril Discontinued Reason: Pt no longer taking 20 mg PO DAILY 30 days 30 tabs 0RF Plan 86-year-old female with stage IIA (T2, N0, M0), 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 Patient is status post right partial mastectomy with sentinel lymph node biopsy April 2022. Cancer was incidentally discovered when the patient had a CAT scan of the abdomen and pelvis and the lower parts of the breasts were included in the CAT scan showing the abnormality. Patient had CAT scan chest abdomen and pelvis and bone scan showing otherwise no evidence to suggest metastatic breast cancer. Incidental finding: Left adrenal mass on CAT scan February 2022. Chronic comorbid conditions: Multiple including diabetes, dyslipidemia, hypertension, morbid obesity, chronic congestive heart failure, chronic renal failure, obstructive sleep apnea, degenerative joint disease, cerebrovascular disease. Plan: Based on NCCN guidelines: 1-systemic adjuvant hormonal therapy with an aromatase inhibitor for 5 years. Main toxicities (hot flashes, musculoskeletal pains, dyslipidemia, bone loss) were discussed. Patient is not a candidate for adjuvant chemotherapy and an Oncotype DX score is therefore not indicated. The patient has been thoroughly educated to risks/benefits associated with anastrozole. Specifically, she has been educated to potential side effects, recommendations for symptom management, and circumstances in which she should contact provider prior to planned follow up, such as myalgias, hot flashes causing interference with ADLs. She has been provided written educational information regarding aromatase inhibitor therapy and lists of estrogenic herbs/supplements to avoid. I reviewed recommendations for calcium and vitamin D supplementation and the importance of weight bearing activity. A significant amount of time was allotted for patient and family's questions. All the patient's concerns were addressed to their satisfaction. They would like to discuss as a family and will call in 1 week with patient's decision about whether or not to pursue adjuvant endocrine therapy. 2. Due to advanced age, poor performance status, significant chronic comorbid conditions and provided that the patient takes adjuvant hormonal therapy, adjuvant radiation therapy can be omitted. Patient was offered and agreed to have a formal consultation with radiation oncology, however she has changed her mind and does not wish to discuss adjuvant radiation now. 3. For the incidentally found left adrenal mass patient has been referred to endocrinology. I advised a 6 months interval CAT scan of the abdomen follow-up with contrast if possible contingent her kidney function. 4. Bone density 2021 was normal; patient was advised to continue vitamin D supplement as she has been doing. I spent 90 minutes today reviewing labs, records and history. Time includes coordination of care and patient education, as well as documenting clinical information. 06/18/221731 <Electronically signed by Susan JAMES> Date Susan JAMES Cosigner Signature: Date (if applicable) CC: Dr. Martina Lal, DO Martina Lal DO Work Phone: Start: 06-11-2022 End: 06-11-2022 Oncology Visit Report Procedure Note: See Note; NOTES: [facility] [address] [place] [id number] OFFICE VISIT Date of Service: 06/11/22 1439 MR#: [id number] Acct: [id number] Name: CHIDEBBIE Jana Rep #: [id number] : 1935 From: Socoror Ivan MD Age/Sex: 86/F Location: [facility] [place] Status: Signed HPI Subjective Date of Service 06/11/22 Chief Complaint Breast cancer History of Present Illness 86-year-old female with multiple chronic medical problems including diabetes, hypertension, dyslipidemia, chronic congestive heart failure, chronic renal failure, diverticular disease: Morbid obesity, obstructive sleep apnea, cerebrovascular disease and degenerative joint disease. In February 2022 she had an episode of abdominal pain and on a CAT scan of the abdomen and pelvis showed an incidental abnormality in the right breast which prompted a screening mammogram (she has had none for many years) and a biopsy. February 25, [address]: IMPRESSION: 1.??? Nonvisualization the appendix.??? There is no right lower quadrant inflammatory change. 2.??? Ventral hernias. 3.??? Hiatal hernia. 4.??? Colonic diverticulosis without acute inflammatory change. 5.??? Left adrenal enhancing mass.??? This does not have the appearance of an adenoma.??? Follow-up required. 6.??? 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 7.??? Multiple right renal cysts.??? These require no further follow-up. 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 ANTIBODY / CLONE RESULT E-Cad (ECH-6) positive CK8 ([id number]) positive Calponin-1 (KX720N) negative CK5-6 (D5 1684) negative P40 (BC28) negative P53 (DO-7) positive, rare cells, weak Ki-67 (30-9) positive, low, 15% MORPHOMETRIC ANALYSIS ER (clone 6F11) >95%, strong intensity WI (clone 16/1E2) 52%, weak to moderate intensity Her-2Neu (clone CB11) 0 April 30, 2022 right partial mastectomy with sentinel lymph node biopsy: MICROSCOPIC DIAGNOSIS A. Right axillary sentinel lymph nodes, biopsy: Two out of two lymph nodes, negative for carcinoma. B. Right breast mass, lumpectomy: Invasive ductal (mucinous) carcinoma. COMMENT A. Immunohistochemistry ([id number]) supports the above diagnosis. INVASIVE BREAST CANCER SUMMARY: Procedure - excision with wire guidance Specimen: Type - partial breast Size ??? 8 x 5 x 4 cm Laterality ??? right breast Tumor: Site ??? not specified Size ??? 2.5 x 2 x 1.5 cm Histologic type - invasive ductal (mucinous) carcinoma. Focality - single focus Histologic Grade (Lonny grade): Glandular/tubular differentiation - score 2 Nuclear pleomorphism - score 2 Mitotic count ??? score 1 Overall grade - 1 (score of 5) Ductal carcinoma in situ: Present Estimated quantification (% of tumor volume) ??? 5% Number of blocks - 3 of 12 blocks Architectural patterns ??? solid and cribriform Nuclear grade ??? grade 1 Necrosis ??? not present Lobular carcinoma in situ (LCIS) ??? not present Tumor extension: Skin ??? not applicable Nipple - not applicable Skeletal muscle - not applicable Margins: Distance of invasive carcinoma from closest margin ??? 0.5 mm from posterior margin. Distance of in situ carcinoma from closest margin - 0.5 mm from posterior margin. Lymph nodes: Number of lymph nodes examined - 2 Number of sentinel lymph nodes - 2 Number of lymph nodes with macrometastases, micrometastases and isolated tumor cells ??? 0 See specimen A. Treatment effect: Unknown Lymphvascular invasion ??? not identified Additional pathologic findings ??? fibrocystic change with associated microcalcifications. Usual intraductal hyperplasia without atypia. Ancillary studies - previously performed on section of tumor ([id number] / [id number]). ER ??? positive (>95%, strong intensity) WI - positive ( 52%, weak to moderate intensity) Her2 lc ??? negative (0) Her2 by dual CONNIE - not performed Ki67 ??? positive (15%) Microcalcifications ??? present in invasive carcinoma and benign breast tissue. Clinical history ??? Mass of breast. PATHOLOGIC STAGE: T2 N0 Mx May 06, 2022 bone scan: IMPRESSION: 1.??? Enhanced tracer concentration visualized in the left elbow and left wrist, bilateral shoulders, both knee articulations, right-left midfoot. 2.??? There is no definitive scintigraphic evidence of skeletal metastatic disease. May 14, 2022 CT chest: FINDINGS: LUNGS AND PLEURAL SPACES:??? Minimal left pleural effusion.??? Bibasilar atelectasis, greater on the left.??? No pulmonary nodules.??? No pneumothorax. HEART: Extensive coronary artery calcification.??? Trace of pericardial fluid. MEDIASTINUM:??? Minimal hiatal hernia.??? Normal sized mediastinal lymph nodes. No mediastinal adenopathy. THYROID:??? Unremarkable.??? No thyroid lesions. BONES/JOINTS:??? Thoracic degenerative spurring.??? Accentuated thoracic kyphosis.??? Fusion of most of the thoracic facet joints.??? No acute fracture. No suspicious lytic or blastic abnormality. SOFT TISSUES:??? Within the right axillary region is a thin-walled fluid collection of water attenuation, measuring 8.4 cm in cephalocaudal dimension by 5.5 cm in AP diameter by 3.6 cm in transverse diameter.??? This fluid collection shows no internal air bubbles or surrounding fat stranding, and is consistent with seroma.??? There are adjacent surgical clips. More inferiorly, within the inferior lateral right breast, is a larger fluid collection which shows a thickened wall, internal air bubbles and surrounding fat stranding; this more inferior fluid collection measures 6.7 cm in transverse diameter by 5.7 cm in cephalocaudal dimension by 5.6 cm in AP diameter.??? Small surgical clips are noted about this fluid collection. There is mild overlying skin thickening. VASCULATURE:??? Thoracic aorta is calcific and is normal in caliber.??? No aneurysm or intimal calcification displacement. UPPER ABDOMEN Gallbladder is absent.??? Visualized portions of the liver, spleen, pancreas, and right adrenal gland are unremarkable.??? Left adrenal gland contains a 2.3 cm isodense nodule with CT attenuation of 46, unchanged as compared to prior CT of 03/11. KIDNEYS AND URETERS:??? The left kidney remains small/atrophic.??? At the upper pole the right kidney is a 1.8 cm exophytic nodule of water attenuation, consistent with simple cyst,, unchanged, and which requires no follow-up. INTRAPERITONEAL SPACE:??? No pneumoperitoneum is noted. IMPRESSION: Findings consistent with 8.4 cm seroma within the right axilla.??? More inferiorly, a thick-walled 6.7 cm fluid collection with internal air bubbles and surrounding fat stranding is noted within the inferior-lateral right breast, consistent with abscess.??? Nonstandard communication protocol initiated. [facility] Medical History (Updated 06/11/22 @ 15:[address] Socorro Ivan MD) Abnormal cardiac enzyme level Ambulates with cane Arthritis Bilateral carotid artery stenosis Bilateral extracranial carotid artery stenosis Breast abscess Breast cancer, right breast ( 03/2022) Cancer CHF (congestive heart failure) Difficulty swallowing GERD (gastroesophageal reflux disease) History of edema History of IBS History of renal disease History of steroid therapy HLD (hyperlipidemia) HTN (hypertension) Hyperlipidemia Hypertension Infected seroma, postoperative Left adrenal mass Leg cramps Non-smoker PONV (postoperative nausea and vomiting) Shortness of breath on exertion Sleep apnea Stage 3a chronic kidney disease (CKD) Type 2 diabetes mellitus Wears glasses Wears hearing aid Surgical History History of cataract extraction History of cholecystectomy History of colonoscopy History of hysterectomy History of right breast biopsy ( 03/2022) History of umbilical hernia repair Family History Brother Pancreatic cancer Diabetes Heart disease Lung cancer Hypertension Colon cancer Mother Hypertension Brother No problems noted. 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 housing: house Smoking Status: Never smoker alcohol intake: never substance use type: does not use what type of physical activity do you participate in: none seatbelt use: always do you feel safe at home: Yes ROS Constitutional Constitutional: Reports systems reviewed and no addt'l complaints, except as documented; Denies fever(s) or weight loss Eyes Eyes: Reports systems reviewed and no addt'l complaints, except as documented ENT HEENT: Reports systems reviewed and no addt'l complaints, except as documented Cardiovascular Cardiovascular: Reports systems reviewed and no addt'l complaints, except as documented and edema; Denies chest pain Respiratory/Chest Respiratory/Chest: Reports systems reviewed and no addt'l complaints, except as documented and dyspnea on exertion; Denies hemoptysis Gastrointestinal Gastrointestinal: Reports systems reviewed and no addt'l complaints, except as documented, fecal incontinence and other Details: Fecal incontinence is occasional urge ; Denies hematochezia or melena Genitourinary Genitourinary: Reports systems reviewed and no addt'l complaints, except as documented and urinary incontinence; Denies hematuria Musculoskeletal Musculoskeletal: Reports systems reviewed and no addt'l complaints, except as documented, arthralgias and back pain Integumentary Integumentary: Reports systems reviewed and no addt'l complaints, except as documented and unusual bruising; Denies non-healing lesions Neurologic Neurologic: Reports systems reviewed and no addt'l complaints, except as documented, headache(s), paresthesias RLE and LLE and other Details: Chronic occasional headaches and 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 Psychiatric Psychiatric: Reports systems reviewed and no addt'l complaints, except as documented Endocrine Endocrinology: Reports systems reviewed and no addt'l complaints, except as documented Hematologic/Lymphatic Hematologic/Lymphatic: Reports systems reviewed and no addt'l complaints, except as documented and easy bruising; Denies lymphadenopathy Allergic/Immunologic Allergic/Immunologic: Reports systems reviewed and no addt'l complaints, except as documented Intake Vital Signs 04/30/22 08:00 06/04/22 14:01 06/11/22 14:40 06/11/22 14:52 Height 5 ft 1 in 5 ft 1 in 5 ft 1 in 5 ft 1 in Weight: 104.553 kg BMI 43.5 BP 177/69 H Blood Pressure Location Lt brachial Position Sitting Respiration 16 Pulse 65 Pulse Source Monitor Temp 98.0 F Temperature Source Temporal Artery Pulse Oximetry (%) 92 Oxygen Delivery Method room air Intake Accompanied by: Daughter Is patient in pain?: Yes (R breast sore/tender) Allergies morphine Adverse Reaction (Intermediate, Verified 06/11/22 14:48) mental status change meperidine HCl [From Demerol] Adverse Reaction (Mild, Verified 06/11/22 14:48) mental status change Medications latanoprost 0.005 % eye drops (Xalatan) 1 drp EACH EYE QHS Cataracts/Dry eye 07/29/14 [History Confirmed 06/04/22] omega-3 fatty acids-fish oil 300 mg-1,000 mg capsule 1 ea PO DAILY SUPPLEMENT 07/29/14 [History Confirmed 06/04/22] nateglinide 60 mg tablet 60 mg PO TID BLOOD GLUCOSE 08/27/17 [History Confirmed 06/04/22] aspirin 81 mg chewable tablet 81 mg PO DAILY HEART HEALTH 06/26/18 [History Confirmed 06/04/22] cholecalciferol (vitamin D3) 125 mcg (5,000 unit) capsule 125 mcg PO DAILY SUPPLEMENT 04/01/22 [History Confirmed 06/04/22] liver supplement 1 cap PO QHS SUPPLEMENT 04/01/22 [History Confirmed 06/04/22] carvedilol 6.25 mg tablet 6.25 mg PO BID BP 05/23/22 [History Confirmed 06/11/22] hydralazine 50 mg tablet 100 mg PO TID BP 05/23/22 [History Confirmed 06/11/22] sodium chloride 0.65 % nasal spray aerosol (Deep Sea Nasal) 2 spray NASAL TID PRN PRN NASAL DRYNESS #0 mL 05/23/22 [Rx Confirmed 06/11/22] acetaminophen 500 mg tablet 1,000 mg PO Q6H PRN PRN Pain Score 1-5 #0 tabs 06/03/22 [Rx Confirmed 06/11/22] amlodipine 10 mg tablet 10 mg PO DAILY@0800 30 days #30 tabs 06/03/22 [Rx Confirmed 06/11/22] ascorbic acid (vitamin C) 500 mg tablet 1,500 mg PO DAILY #0 tabs 06/03/22 [Rx Confirmed 06/11/22] furosemide 40 mg tablet 40 mg PO DAILY 30 days #30 tabs 06/03/22 [Rx Confirmed 06/11/22] lisinopril 20 mg tablet 20 mg PO DAILY 30 days #30 tabs 06/03/22 [Rx Confirmed 06/11/22] melatonin 3 mg capsule 3 mg PO HS PRN 06/04/22 [History Confirmed 06/11/22] tramadol 50 mg tablet 50 mg PO Q6H PRN 06/04/22 [History Confirmed 06/11/22] Colloidal Silver PO DAILY 06/11/22 [History] cinnamon bark 500 mg capsule (Cinnamon) 500 mg PO DAILY 06/11/22 [History Confirmed 06/11/22] famotidine 20 mg tablet (Pepcid) 20 mg PO DAILY 06/11/22 [History Confirmed 06/11/22] ondansetron 4 mg disintegrating tablet 4 mg PO Q4H 06/11/22 [History Confirmed 06/11/22] Central Venous Access Central Venous Access: No Exam Physical Exam Narrative ECOG 2, seen in a wheelchair Const alert, oriented x3 and no apparent distress General Appearance: anxious Nutritional Appearance: morbidly obese HEENT normocephalic Face and Sinus: normal facial exam General Ear: hearing grossly impaired Teeth and Gingiva: poor dentition Eyes General Eye: normal appearance of both eyes Neck no lymphadenopathy and no JVD Lymph Lymphatic: no lymphadenopathy noted Resp clear to auscultation bilaterally Cardio regular rate and regular rhythm Jugular Venous Distention: Negative for JVD GI soft to palpation, non-tender and non-distended Back/Spine no thoracic nor lumbar tenderness Extremity General Extremity: edema bilateral lower extremity Details: mild; Negative for clubbing or cyanosis Skin General Skin Exam: ecchymosis Neuro oriented x3, CN's II-XII intact bilaterally, moves all extremities and no focal motor deficits Coordination / Balance: [id number] test normal Speech: speech normal Gait (Neuro): unable to assess gait Psych Psych Narrative: Anxious Coding Level of Care Code Off vis,new,level 4 Exam Problem Focused Diagnoses Breast cancer, right breast C50.911 Left adrenal mass E27.8 Assessment and Plan Assessment and Plan (1) Breast cancer, right breast: Status: Acute (2) Left adrenal mass: Status: Chronic Comment: CT February 2022 Orders: Referrals Radiation Oncology C50.919 - Malignant neoplasm of unspecified site of unspecified female breast Plan 86-year-old female with stage IIA (T2, N0, M0), 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 Patient is status post right partial mastectomy with sentinel lymph node biopsy April 2022. Cancer was incidentally discovered when the patient had a CAT scan of the abdomen and pelvis and the lower parts of the breasts were included in the CAT scan showing the abnormality. Patient had CAT scan chest abdomen and pelvis and bone scan showing otherwise no evidence to suggest metastatic breast cancer. Incidental finding: Left adrenal mass on CAT scan February 2022. Chronic comorbid conditions: Multiple including diabetes, dyslipidemia, hypertension, morbid obesity, chronic congestive heart failure, chronic renal failure, obstructive sleep apnea, degenerative joint disease, cerebrovascular disease. Plan: Based on NCCN guidelines: 1-systemic adjuvant hormonal therapy with an aromatase inhibitor for 5 years. Main toxicities (hot flashes, musculoskeletal pains, dyslipidemia, bone loss) were discussed. Patient was offered and she agreed to attend a formal anticancer teaching session. Patient is not a candidate for adjuvant chemotherapy and an Oncotype DX score is therefore not indicated. 2. Due to advanced age, poor performance status, significant chronic comorbid conditions and provided that the patient takes adjuvant hormonal therapy, adjuvant radiation therapy can be omitted. Patient was offered and agreed to have a formal consultation with radiation oncology. 3. For the incidentally found left adrenal mass patient has been referred to endocrinology. I advised a 6 months interval CAT scan of the abdomen follow-up with contrast if possible contingent her kidney function. 4. Bone density 2021 was normal; patient was advised to continue vitamin D supplement as she has been doing. Patient was seen with her daughter, impression and plan discussed. Follow-up in early spring 2022 (patient elderly with poor mobility and did not wish to come for follow-up in winter) Socorro Ivan MD [employer] Developer, [facility] Divisions of Medical Oncology Hematology Department of Internal Medicine [place] [phone] This note was generated using a voice recognition system software. Although it was reviewed by the author prior to finalization, it may still contain incorrect words, spelling, and punctuation that were not noted when reviewing prior to saving. If a clinically significant typo or inaccurately typed phrase is noted, please notify the author. 06/11/22 1606 <Electronically signed by Socorro Ivan MD> Date Socorro Ivan MD Cosigner Signature: Date (if applicable) CC: Dr. Martina Lal DO; Dr. Michael Michel MD; DO Martina Mercado DO Work Phone: Start: 06-11-2022 End: 06-11-2022 Surgery Visit Report Procedure Note: See Note; NOTES: [facility] [address] [place] [address] [place] [address] OFFICE VISIT Date of Service: 06/11/22 MR#: [id number] Acct: [id number] Name: DEBBIE MIRELES Rep #: [id number] : 1935 Provider: YAW stock Age/Sex: 86/F Location: [facility] Status: Signed Intake Vital Signs 06/04/22 14:01 Height 5 ft 1 in Intake Visit Reasons: WOUND CHECK Chief Complaint: Acute Respiratory Failure with Hypoxia, CHF Allergies morphine Adverse Reaction (Intermediate, Verified 06/04/22 14:27) mental status change meperidine HCl [From Demerol] Adverse Reaction (Mild, Verified 06/04/22 14:27) mental status change Subjective Details: Patient is an 86 y/o F I am following for an infected right breast seroma. Dr. Michel performed an Ultrasound-guided fine-needle aspiration aspiration right axillary seroma and Open debridement and evacuation of upper outer quadrant right breast seroma on 05/15/22. Patient tolerated the procedure well. Patient was initially discharged and returned back to the hospital with congestive heart failure. Patient was recently discharged from TCU last . Patient was having dressing and packing changes while in the hospital. Patient today for a wound check. She has continued to keep the area covered. Home health has been assisting her with dressing changes. Patient denies drainage from the incision site. She denies discomfort or pain. Objective Details: Right breast- lateral incision completely healed. Nontender. No erythema noted. Coding Level of Care Code Global Post Op Diagnoses Breast abscess N61.1 [facility] Medical History (Updated 06/04/22 @ 14:16 by Rama Camara 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, 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-C) Abnormal cardiac enzyme level Ambulates with cane Arthritis Bilateral carotid artery stenosis Bilateral extracranial carotid artery stenosis Breast abscess Breast cancer, right breast ( 03/2022) Cancer CHF (congestive heart failure) Difficulty swallowing GERD (gastroesophageal reflux disease) History of edema History of IBS History of renal disease History of steroid therapy HLD (hyperlipidemia) HTN (hypertension) Hyperlipidemia Hypertension Infected seroma, postoperative Leg cramps Non-smoker PONV (postoperative nausea and vomiting) Shortness of breath on exertion Sleep apnea Stage 3a chronic kidney disease (CKD) Type 2 diabetes mellitus Wears glasses Wears hearing aid Surgical History History of cataract extraction History of cholecystectomy History of colonoscopy History of hysterectomy History of right breast biopsy ( 03/2022) History of umbilical hernia repair Family History (Reviewed 06/04/22 @ 14:13 by Rama Camara 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, 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-C) Brother Pancreatic cancer Diabetes Heart disease Lung cancer Hypertension Colon cancer Mother Hypertension Brother No problems noted. Brother Cancer Brother Sleep apnea Myocardial infarction Brother Sleep apnea Other Arthritis Asthma Social History (Reviewed 06/04/22 @ 14:13 by Rama Camara 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, 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-C) household members: 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 housing: house Smoking Status: Never smoker alcohol intake: never substance use type: does not use what type of physical activity do you participate in: none seatbelt use: always do you feel safe at home: Yes Assessment and Plan (No Qualifiers) Assessment and Plan (1) Breast abscess: Status: Acute Plan: No further follow-up needed 06/11/22 8939 <Electronically signed by Adeola WASHINGTON PA-C> Date Adeola WASHINGTON PA-C Cosigner Signature: Date (if applicable) CC: DO Martina Swan DO Work Phone: Start: 06-06-2022 End: 06-06-2022 Renal Artery Duplex Ultrasound Procedure Note: See Note; NOTES: [facility] [address] [place] [address] Renal Artery Duplex Ultrasound 06/06/22 0904 MR#: [id number] Acct: [id number] Name: DEBBIE MIRELES Rep #: [id number] : 1935 86 From: Willy Trimble MD Attending Dr: Dr. Martina Lal DO Status: R EG I Ordering Dr: Martina Lal DO Date: 06/06/22 Location: [facility] Sex: F C Admitted: Reason For Study: HYPERTENSION Right Renal Artery Left Renal Artery Right renal artery ostium Left renal artery ostium 132.7/23.8 161.2/16.0 RSV/EDV. PSV/EDV. Right renal artery proximal Left renal artery proximal PSV/EDV 125.1/18.6 PSV/EDV. 130.1/34.2 . Right renal artery mid 146.4/10.8 Left renal artery mid 127.7/27.2 PSV/EDV. PSV/EDV . Right renal artery distal Left renal artery distal 113.0/27.2 115.4/18.6 PSV/EDV. PSV/EDV. Right RAR 2.2. Left RAR 1.96. Right Renal Parenchyma Left Renal Parenchyma Upper Pole Medula 56.0/10.6 Left upper pole medulla 33.7/8.1 PSV/EDV. PSV/EDV . Right upper pole medulla EDR 0.20 . Left upper pole medulla EDR 0.20 . Right upper pole medulla R.I. Left upper pole medulla R.I. 0.76 . 0.81 . UP Cortex 25.5/7.2 PSV/EDV. Upper Randall Cortx 23.9/6.6 PSV/EDV. Left upper pole cortex EDR 0.30 . Right upper pole cortex EDR 0.3 . Left upper pole cortex R.I. 0.72 . Right upper pole cortex R.I. 0.73 . Left lower Pole medulla 31.9/8.1 Right lower Pole medulla 54.1/10.2 PSV/EDV . PSV/EDV . Left lower pole medulla EDR 0.30 . Right lower pole medulla EDR 0.20 . Left lower pole medulla R.I. 0.74 . Right lower pole medulla R.I. Lower Pole Cortx 24.6/9.0 PSV/EDV. 0.81 . Left lower pole cortex EDR 0.40 . Lower Pole Cortex 20.3/6.6 PSV/EDV. Left lower pole cortex R.I. 0.63 . Right lower pole cortex EDR 0.30 . Left Renal Hilar Right lower pole cortex R.I. 0.68 . LT Hilar avg 138.6/12.6 PSV/EDV . Right Renal Hilar Left hilar acceleration time 80 Right Hilar avg 123.1/14.7 PSV/EDV. m/sec. Right hilar acceleration time 30 Left Renal Dimensions m/sec. Left kidney size 9.8 cm . Right Renal Dimensions Left cortical dimension 1.15 cm . Right kidney size 10.20 cm . Right cortical dimension 1.48 cm . Aorta Proximal abdominal aorta 1.75 x 1.96 cm . Distal abdominal aorta 1.55 x 1.72 cm . Proximal abdominal aorta peak systolic velocity is 52.4 cm/sec . Distal abdominal aorta peak systolic velocity is 67.7 cm/sec . Procedures Technically difficult study due to bowel gas and body habitus. VL/Renal Artery Duplex Ultrasound Interpretation Summary Right renal artery patent with normal velocities. Left renal artery patent with normal velocities Right renal vein patent Left renal vein patent The right kidney is normal in size. The left kidney is normal in size. Ordering Physician: Martina Lal Referring Physician: Martina Lal Performed By: George Rader, [facility] 06/06/22 1212 Date Willy Trimble MD CC: Dr. Martina Lal DO Date Dictated: 06/06/22 0904 Date Transcribed: 06/06/221211 Assistant Project Manager: Nighat Lal DO Work Phone: Start: 06-05-[address] radi[address] of abdomen Dr[address] Martina Lal Work Phone: Start: 06-04-2022 End: 06-12-2022 Cardiology Visit Report Procedure Note: See Note; NOTES: [facility] [address] [place] [address] OFFICE VISIT Date of Service: 06/04/22 MR#: [id number] Acct: [id number] Name: DEBBIE MIRELES Rep #: [id number] : 1935 Provider: ERIKA perez Age/Sex: 86/F Location: [facility] Status: Signed HPI [facility] History of Present Illness Details: DEBBIE MIRELES, is a 86 year old white female who presents to the office today for cardiovascular hospital follow-up visit. She was consulted while in the hospital based upon concerns of heart failure preserved ejection fraction CHF/diastolic mediated CHF superimposed upon a history of hyperlipidemia, hypertension, diabetes mellitus, carotid artery disease, and breast carcinoma status post recent right breast surgery with subsequent seroma/abscess status postevacuation on 05-15-2022 who presented for concerns of worsening shortness of breath/dyspnea and hypoxemia. The patient has been undergoing evaluation by multiple physicians for her multiple medical issues.??? From a cardiovascular standpoint she has undergone recent evaluation with a transthoracic echocardiogram on 05-20-2022.??? Per the report the left ventricle was normal with an LVEF of 60% with moderate concentric LVH and stage II diastolic dysfunction.??? There was mild MR and mild to moderate TR.??? A chest x-ray suggested mild pulmonary edema and small pleural effusions.??? Thus she had been treated medically with diuretic therapy. With her recent admission, she had a somewhat elevated troponin I level which is gradually decreased from 111-83.??? Her ECG demonstrated sinus rhythm.??? There were no acute ECG changes.??? Her other noninvasive studies are as noted.??? Of note, she states she is not going through additional cardiovascular studies/procedures at her age with her diagnosis. She is currently in TCU for rehabilitation. From a cardiac standpoint, the patient is doing well. She is accompanied by her daughter. She denies any palpitations, chest pain, pressure or heaviness. She does have occasional SOB with exertion- hurrying or climbing stairs. This is nothing new or worsening. She denies Orthopnea, and PND. She does not have bleeding issues; no blood in urine, stool or nosebleeds. She denies any decrease in energy level, myalgias, or claudication. She does have bilateral lower extremity edema. She denies sudden weight gain. She denies dizziness, lightheadedness, syncopal or near syncopal episodes, and headaches. Patient is being followed by nephrology. Intake Vital Signs 05/24/22 12:53 06/04/22 14:01 06/04/22 14:01 Height 5 ft 1 in 5 ft 1 in 5 ft 1 in Weight: 229 lb BMI 43.2 BP 133/66 H Blood Pressure Location Lt brachial Position Sitting Respiration 20 H Pulse 55 L Pulse Source Monitor Pulse Oximetry (%) 96 Intake Visit Reasons: 2 wk fu/CHF Wardrobe Mistress Required: No Is patient in pain?: No Allergies morphine Adverse Reaction (Intermediate, Verified 06/12/22 21:53) mental status change meperidine HCl [From Demerol] Adverse Reaction (Mild, Verified 06/12/22 21:53) mental status change Medications latanoprost 0.005 % eye drops (Xalatan) 1 drp EACH EYE QHS Cataracts/Dry eye 07/29/14 [History Confirmed 06/04/22] omega-3 fatty acids-fish oil 300 mg-1,000 mg capsule 1 ea PO DAILY SUPPLEMENT 07/29/14 [History Confirmed 06/04/22] nateglinide 60 mg tablet 60 mg PO TID BLOOD GLUCOSE 08/27/17 [History Confirmed 06/04/22] aspirin 81 mg chewable tablet 81 mg PO DAILY HEART HEALTH 06/26/18 [History Confirmed 06/04/22] cholecalciferol (vitamin D3) 125 mcg (5,000 unit) capsule 125 mcg PO DAILY SUPPLEMENT 04/01/22 [History Confirmed 06/04/22] liver supplement 1 cap PO QHS SUPPLEMENT 04/01/22 [History Confirmed 06/04/22] carvedilol 6.25 mg tablet 6.25 mg PO BID BP 05/23/22 [History Confirmed 06/11/22] hydralazine 50 mg tablet 100 mg PO TID BP 05/23/22 [History Confirmed 06/11/22] sodium chloride 0.65 % nasal spray aerosol (Deep Sea Nasal) 2 spray NASAL TID PRN PRN NASAL DRYNESS #0 mL 05/23/22 [Rx Confirmed 06/11/22] acetaminophen 500 mg tablet 1,000 mg PO Q6H PRN PRN Pain Score 1-5 #0 tabs 06/03/22 [Rx Confirmed 06/11/22] amlodipine 10 mg tablet 10 mg PO DAILY@0800 30 days #30 tabs 06/03/22 [Rx Confirmed 06/11/22] ascorbic acid (vitamin C) 500 mg tablet 1,500 mg PO DAILY #0 tabs 06/03/22 [Rx Confirmed 06/11/22] furosemide 40 mg tablet 40 mg PO DAILY 30 days #30 tabs 06/03/22 [Rx Confirmed 06/11/22] lisinopril 20 mg tablet 20 mg PO DAILY 30 days #30 tabs 06/03/22 [Rx Confirmed 06/11/22] melatonin 3 mg capsule 3 mg PO HS PRN 06/04/22 [History Confirmed 06/11/22] tramadol 50 mg tablet 50 mg PO Q6H PRN 06/04/22 [History Confirmed 06/11/22] Colloidal Silver PO DAILY 06/11/22 [History] cinnamon bark 500 mg capsule (Cinnamon) 500 mg PO DAILY 06/11/22 [History Confirmed 06/11/22] famotidine 20 mg tablet (Pepcid) 20 mg PO DAILY 06/11/22 [History Confirmed 06/11/22] ondansetron 4 mg disintegrating tablet 4 mg PO Q4H 06/11/22 [History Confirmed 06/11/22] PFSH Medical History (Reviewed 06/12/22 @ 21:53 by Rama Camara 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, 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-C) Abnormal cardiac enzyme level Ambulates with cane Arthritis Bilateral carotid artery stenosis Bilateral extracranial carotid artery stenosis Breast abscess Breast cancer, right breast ( 03/2022) Cancer CHF (congestive heart failure) Difficulty swallowing GERD (gastroesophageal reflux disease) History of edema History of IBS History of renal disease History of steroid therapy HLD (hyperlipidemia) HTN (hypertension) Hyperlipidemia Hypertension Infected seroma, postoperative Left adrenal mass Leg cramps Non-smoker PONV (postoperative nausea and vomiting) Shortness of breath on exertion Sleep apnea Stage 3a chronic kidney disease (CKD) Type 2 diabetes mellitus Wears glasses Wears hearing aid Surgical History (Reviewed 06/12/22 @ 21:53 by Rama Camara 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, 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-C) History of cataract extraction History of cholecystectomy History of colonoscopy History of hysterectomy History of right breast biopsy ( 03/2022) History of umbilical hernia repair Family History (Reviewed 06/12/22 @ 21:53 by Rama Camara 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, 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-C) Brother Pancreatic cancer Diabetes Heart disease Lung cancer Hypertension Colon cancer Mother Hypertension Brother No problems noted. Brother Cancer Brother Sleep apnea Myocardial infarction Brother Sleep apnea Other Arthritis Asthma Social History (Reviewed 06/12/22 @ 21:53 by Rama Camara 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, 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-C) household members: 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 housing: house Smoking Status: Never smoker alcohol intake: never substance use type: does not use what type of physical activity do you participate in: none seatbelt use: always do you feel safe at home: Yes ROS Const Const: Negative for fatigue, weakness, fever(s), headache(s), chills, frequent falls, weight gain or weight loss Eyes Eyes: Negative for blind spots, loss of peripheral vision, transient loss of vision, blurry vision, change in vision, double vision, floaters or tunnel vision ENT ENT: Negative for headache(s), dizziness, Nosebleed/epistaxis, balance problems or neck pain Cardio Chest Pain: No Palpitations: No Edema: Bilateral Muscle aches with walking: None Resp Respiratory: Positive for SOB with activity (occasional-with hurrying or climbing stairs-nothing new or worsening); Negative for SOB at rest or SOB orthopnea SOB lying down GI GI: Negative nausea, vomiting, heartburn, bloating, vomiting blood/hematemesis, bright, red blood in stools or black,tarry stools Musc Musc: Negative for muscle aches/ myalgia, muscle weakness, joint pain or balance problems Neuro Neuro: Negative for dizziness, lightheadedness, near syncope, syncope, orthostatic symptoms, frequent falls, headache(s), weakness, blurry vision or double vision Star Hematologic/Lymphatic: Negative for easy bleeding or easy bruising Endo Endo: Negative for fatigue Cardiology Exam Const Appearance: cooperative and no acute distress Nutritional Appearance: obese Orientation: alert and oriented x3 Head Head: normal to inspection Ears: hearing grossly normal bilaterally Nose: external nose normal Face and Sinus: face symmetric Eyes General: appearance normal, both eyes and all related structures Eyelids: eyelids normal Conjunctivae: conjunctivae normal Pupils: PERRL and pupil size EOM: EOM intact bilaterally Neck Neck: normal visual inspection Carotids: Negative bruit Chest Chest inspection: normal inspection of the chest and normal respiratory effort Auscultation: Bilateral: Clear to Auscultation Cardio Palpation: normal PMI Rate: regular rate Rhythm: regular rhythm Heart sounds: S1 normal and S2 normal; Negative rub, gallop or murmur GI GI: normal to inspection, soft and obese; Negative no hepatosplenomegaly Neuro General: patient alert, patient oriented x3 and CN's II-XI intact bilaterally Skin Skin: no rashes or lesions noted Extremities Pulses: Normal: Right Posterior Tibial Pulse, Left Posterior Tibial Pulse, Right Radial Pulse and Left Radial Pulse Lower Extremity Edema: Trace: Bilateral Psych Psychological: normal affect Supplemental Info Supplemental Information Echocardiogram 05/20/2022: Interpretation Summary Left ventricular systolic function is normal. The estimated ejection fraction is 60 %. Normal size and thickness. Moderate concentric left ventricular hypertrophy. Stage 2 diastolic dysfunction. Carotid Duplex 10/12/2021: Interpretation Summary Mild irregular plaque of the proximal right internal carotid artery with less than 50% stenosis Greater than 50% stenosis right external carotid artery Irregular calcific plaque left common carotid and proximal internal carotid artery. 50 to 69% stenosis of the left internal carotid artery. Greater than 50% stenosis left external carotid artery Patent and antegrade vertebral arteries bilaterally Findings appear similar to the previous examination of June 19, 2018 Labs: No Data to Display Diagnostics: No Data to Display Pulmonary: No Data to Display Assessment and Plan Assessment and Plan (1) Hypertension: Status: Chronic Plan: Patient has a history of hypertension. Her blood pressure is well controlled in the office today. She will continue with her current medical therapy, along with monitoring her blood pressures at home. She will notify our office of any persistent high or low blood pressure readings. (2) Diastolic congestive heart failure: Status: Acute Plan: Patient has a history of diastolic congestive heart failure. Her most recent echocardiogram from 05/20/2022 demonstrated an ejection fraction of 60%, and stage II diastolic dysfunction. She appears stable at this time, and denies any recent symptoms or events. She will continue with her current medical therapy, along with monitoring for any concerning symptoms. (3) Chronic kidney disease, stage 3a: Status: Chronic Plan: Patient has a history of chronic kidney disease. She will continue to follow with nephrology for this. (4) ABDI (obstructive sleep apnea): Status: Acute Plan: Patient has a history of obstructive sleep apnea. This is untreated. At this time, patient refuses therapy. (5) Bilateral carotid artery stenosis: Status: Chronic Plan: Patient has a history of bilateral carotid artery stenosis. Her most recent carotid ultrasound from 10/12/2021 was reviewed with her. We will continue to monitor this. Patient Instructions: Please monitor your blood pressures at home, and notify our office of any persistent high or low blood pressure readings. Plan Details Additional Comments: Patient will follow up in 3 months, or sooner if needed. Thank you for allowing me to participate in the care of your patient. Please don't hesitate to call if any issues arise. This note was generated using a voice recognition system and there may be incorrect words, spelling, or punctuation that were not noted when reviewing the office note prior to saving. Portions of this documentation were copied and pasted from previous office visit notes to provide a cohesive continuity of the history. The note has been reviewed, edited, and updated, as necessary. Follow Up: 3 Months (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/PA) 12 Months (PFM) Coding Level of Care Code Off vis,est,level 3 Diagnoses Hypertension I10 Diastolic congestive heart failure I50.30 Chronic kidney disease, stage 3a N18.31 ABDI (obstructive sleep apnea) G47.33 Bilateral carotid artery stenosis I65.23 Coding Level of Care Code Off vis,est,level 3 Diagnoses Hypertension I10 Diastolic congestive heart failure I50.30 Chronic kidney disease, stage 3a N18.31 ABDI (obstructive sleep apnea) G47.33 Bilateral carotid artery stenosis I65.23 06/12/226 <Electronically signed by Rama Camara NP 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-C> Date Rama Camara NP 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-C Cosigner Signature: Date (if applicable) CC: Dr. Martina Lal, DO Martina Lal DO Work Phone: Start: 05-19-2022 End: 05-23-2022 Chest 1 View (Portable) Procedure Note: See Note; NOTES: [facility] [address] [place] [address] Chest 1 View (Portable) MR#: [id number] Acct: [id number] Name: DEBBIE MIRELES Rep #: [id number] : 1935 F 86 From: Peyman Vaca MD PCP: Dr. Martina Lal DO Status: REG ER Study: Chest 1 View (Portable) Date of Exam: 05/19/22 Exam# [id number] Ordering Dr: Lisa Mariscal DO EXAM: XR CHEST, 1 VIEW CLINICAL INDICATION: dyspnea TECHNIQUE: Frontal view of the chest. This report was created using [employer] report generation technology. COMPARISON: None. FINDINGS: LUNGS AND PLEURAL SPACES: Mild pulmonary edema and small pleural effusions. No pneumothorax. HEART: Mild enlargement of the cardiac silhouette. MEDIASTINUM: Central airways and mediastinal contour are unremarkable. BONES/JOINTS: Degenerative changes of the spine. SOFT TISSUES: Unremarkable. RAD/Chest 1 View (Portable) IMPRESSION: Mild pulmonary edema and small pleural effusions, suggesting CHF. Electronically Signed: Peyman Vaca MD at 23:13 EDT , CC: Dr. Martina Lal DO; Dr. Lisa Mariscal DO Assistant Project Manager: Signed Martina Lal DO Work Phone: Start: 05-19-2022 Plain chest X-ray Dr. Martina Lal Work Phone: Start: 05-17-2022 Pulmonary ventilation perfusion study Dr. Martina Lal Work Phone: Start: 05-15-2022 Incision and drainage of abscess Dr. Martina Lal Work Phone: Start: 05-15-2022 End: 05-15-2022 Consultation - Surgical Procedure Note: See Note; NOTES: [facility] Medical Records Department [address] [facility] [place] [address] Consultation - Surgical 05/15/22 0007 MR#: [id number] Acct: [id number] Name: DEBBIE MIRELES Rep #: [id number] : 1935 86 From: Felice Waller MD PCP: Dr. Martina Lal, DO Status:REG ER Location: ED Assessment Plan Assessment/Plan (1) Seroma, postoperative: PLAN: Patient is an 86-year-old female who is just over 2 weeks out from right partial mastectomy with sentinel lymph node biopsy. Postoperatively, patient developed a seroma at her lumpectomy site. This has undergone serial drainage as an outpatient, and patient was due for possible seroma catheter insertion. Given spreading erythema over this site and air inside of the cavity, it is possible that patient has developed a secondary infection of this area. Alternatively, air in this area could be from recent instrumentation of the cavity with aspiration drainage procedure just 2 days ago. With patient's urinalysis evidence of possible underlying urinary tract infection it is difficult to discern whether she has a SIRS response to her breast tissue, a underlying UTI, or bot h. Given patient's vitals???which show persistent low-grade fever and hypertensive urgency, emergency medicine has requested consideration of admission for closer monitoring and use of intravenous phar macologic options for patient's hypertension. Surgery will continue to follow patient during inpati ent stay and Dr. Michel will be notified of patient's admission to direct any further intervention on patient's surgical site fluid collection. HPI Consult Data Date of Consult: 05/15/22 HPI Narrative Reason for Consultation: Right breast pain, redness, history of seroma HPI Narrative: DEBBIE MIRELES, is a 86 F who presents with her daughter for evaluation of a painful postoperative right breast incision site, fever, headache, and hypertension. Patient is well-known to surgery after a right partial mastectomy and sentinel lymph node biopsy on 04/30/[address] Michel. Patient has been seen as an outpatient on 2 separate occasions for drainage of seroma fluid at her lumpectomy site. She was scheduled for a third outpatient follow-up visit tomorrow for possible seroma cath placement. However, in the meantime she reports that she has had fevers with a T-max of 99.9 and chills. More significantly, she reports systolic blood pressures of over 200 mmHg. On her intake to the emergency department her systolic blood pressure was 214 mmHg. She confesses that she has not had all of her home antihypertensives this evening. Regarding her surgical site, Ms. Mireles believes that the area looks and feels better than it did a couple of days ago. ER work-up was also notable for urinalysis evidence of probable urinary tract infection. [facility] Medical History Ambulates with cane Arthritis Bilateral carotid artery stenosis Bilateral extracranial carotid artery stenosis Cancer Difficulty swallowing GERD (gastroesophageal reflux disease) History of edema History of IBS History of renal disease History of steroid therapy HTN (hypertension) Hyperlipidemia Leg cramps Non-smoker PONV (postoperative nausea and vomiting) Shortness of breath on exertion Sleep apnea Type 2 diabetes mellitus Wears glasses Wears hearing aid Home Medications ascorbic acid (vitamin C) 500 mg tablet 500 mg PO DAILY@0800 supplement 07/29/14 [History Last Taken 09/25/18] latanoprost 0.005 % eye drops 1 drp EACH EYE QHS 07/29/14 [History Last Taken 09/24/18] omega-3 fatty acids-fish oil 300 mg-1,000 mg capsule 1 ea PO DAILY 07/29/14 [History Last Taken 09/25/18] nateglinide 60 mg tablet 60 mg PO TID BLOOD GLUCOSE 08/27/17 [History Last Taken 09/25/18 08:00] aspirin 81 mg chewable tablet 81 mg PO DAILY HEART HEALTH 06/26/18 [History Last Taken 09/24/18] metoprolol succinate 50 mg tablet,extended release 24 hr 25 mg PO BID HTN 06/26/18 [History Last Taken 09/25/18] Cardio [place] Healthy 1 cap PO DAILY SUPPLEMENT 05/22/20 [History Last Taken Unknown] amlodipine 5 mg tablet (Norvasc) 5 mg PO DAILY HTN 11/09/21 [History Last Taken Unknown] lisinopril 20 mg tablet 20 mg PO BID HTN 11/09/21 [History Last Taken Unknown] hydralazine 25 mg tablet 50 mg PO QHS HTN 03/18/22 [History Last Taken Unknown] artery cleanse 1 tab PO DAILY 04/01/22 [History Last Taken Unknown] cholecalciferol (vitamin D3) 125 mcg (5,000 unit) capsule 125 mcg PO DAILY 04/01/22 [History Last Taken Unknown] cinnamon bark 500 mg capsule (Cinnamon) 500 mg PO DAILY 04/01/22 [History Last Taken Unknown] circu max gold 1 dose PO DAILY SUPPLEMENT 04/01/22 [History Last Taken Unknown] liver supplement 1 cap PO QHS SUPPLEMENT 04/01/22 [History Last Taken Unknown] silver 2 tsp PO DAILY SUPPLEMENT 04/01/22 [History Last Taken Unknown] hydrocodone-acetaminophen 5-325mg 5mg-325mg 1 tab PO Q8H PRN pain 2 days #5 tabs 04/30/22 [Rx Last Taken Unknown] Allergy/AdvReac Type Severity Reaction Status Date / Time morphine AdvReac Intermediate mental Verified 05/14/22 20:21 status change meperidine HCl [From Demerol] AdvReac Mild mental Verified 05/14/22 20:21 status change Family History Brother Diabetes Heart disease Hypertension Lung cancer Mother Hypertension Brother Colon cancer Brother Cancer Brother Sleep apnea Myocardial infarction Brother Sleep apnea Other Arthritis Asthma Surgical History History of cataract extraction History of cholecystectomy History of colonoscopy History of hysterectomy History of right breast biopsy ( 03/2022) History of umbilical hernia repair Social History household members: 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 There is significant tenderness here. There is also a series of interrupted sutures with crusted yellow drainage on adjacent bandage. Lab / Micro Data Result Diagrams: 05/14/22 22:02 05/14/22 22:02 Labs: Laboratory Results - last 24 hr 05/14/22 22:02: WBC 12.2 H, RBC 4.31, Hgb 12.6, Hct 38.2, MCV 88.6, MCH 29.2, MCHC 33.0, RDW Std Deviation 44.1 H, RDW Coeff of Pedro 13.6, Plt Count 258, MPV 10.4 05/14/22 22:02: Sodium 137, Potassium 4.7, Chloride 107, Carbon Dioxide 26.0, Anion Gap 4 L, BUN 33 H, Creatinine 1.30 H, Estim Creat Clear Calc 23.87, Est GFR (MDRD) Af Amer 50 L, Est GFR (MDRD) Non- Af 41 L, BUN/Creatinine Ratio 25.4 H, Glucose 98, Calcium 9.7 05/14/22 22:02: Lactic Acid 0.9 05/14/22 22:02: Urine Color Straw, Urine Clarity Clear, Urine pH 7.0, Ur Specific [place] 1.010, Urine Protein 30 H, Urine Glucose (UA) Normal, Urine Ketones Negative, Urine Occult Blood Negative, Urine Nitrite Positive H, Urine Bilirubin Negative, Urine Urobilinogen Normal, Ur Leukocyte Esterase 500 H, Urine RBC 0 SEEN, Urine WBC 5-10 SEEN, Ur Squamous Epith Cells 5-10 SEEN, Urine Bacteria 1+, Urine Mucus 0 SEEN Micro: Microbiology 05/14/22 22:07 Nasal Secretion SARS-CoV-2 FLU Antigen (Rapid) - Final Radiology Impression Chest CT 05/14/22 21:51 IMPRESSION: Findings consistent with 8.4 cm seroma within the right axilla. More inferiorly, a thick-walled 6.7 cm fluid collection with internal air bubbles and surrounding fat stranding is noted within the inferior-lateral right breast, consistent with abscess. Nonstandard communication protocol initiated. Electronically Signed: Hao Yan MD at 23:53 EDT , ADDENDUM: 05/15/22 0006 IMPRESSION: Findings consistent with 8.4 cm seroma within the right axilla. More inferiorly, a thick-walled 6.7 cm fluid collection with internal air bubbles and surrounding fat stranding is noted within the inferior-lateral right breast, consistent with abscess. Nonstandard communication protocol initiated. N.B. : The above Results were Read Back by Hao Yan MD to AG Benson, and understanding confirmed on 05/14/2022 23:59:45 (ET). Electronically Signed: Hao Yan MD at 23:53 EDT Reading Location ID and State: [facility] / MD Tel , Service support , 05/15/22 0021 <Electronically signed by Felice Waller MD> Cosigner Signature (if applicable): CC: Dr. Martina Lal DO Signed Martina Lal DO Work Phone: Start: 05-14-2022 End: 05-23-2022 Chest without Contrast Procedure Note: See Note; NOTES: [facility] Imaging Services [address] [place] [id number] Chest without Contrast MR#: [id number] Acct: [id number] Name: DEBBIE MIRELES Rep #: [id number] : 1935 F 86 From: Hao tidwell MD PCP: Dr. Martina Lal DO Status: REG ER Study: Chest without Contrast Date of Exam: 05/14/22 Exam# [id number] Ordering Dr: Venkat Burnham DO We are attempting to reach an attending provider to discuss findings. An addendum with communication details will be sent when the communication is complete. EXAM: CT CHEST WITHOUT INTRAVENOUS CONTRAST CLINICAL INDICATION: right breast pain redness recent seroma -- r/o abscess TECHNIQUE: Helically acquired images were obtained of the chest without intravenous contrast. This CT exam was performed using one or more of the following dose reduction techniques: automated exposure control, adjustment of the mA and/or kV according to patient size, and/or use of iterative reconstruction technique. This report was created using [employer] report generation technology. RADIATION DOSE: Total DLP: 741.08 mGy-cm. COMPARISON: Abdominal pelvic CT of 02/25/2022. FINDINGS: LUNGS AND PLEURAL SPACES: Minimal left pleural effusion. Bibasilar atelectasis, greater on the left. No pulmonary nodules. No pneumothorax. HEART: Extensive coronary artery calcification. Trace of pericardial fluid. MEDIASTINUM: Minimal hiatal hernia. Normal sized mediastinal lymph nodes. No mediastinal adenopathy. THYROID: Unremarkable. No thyroid lesions. BONES/JOINTS: Thoracic degenerative spurring. Accentuated thoracic kyphosis. Fusion of most of the thoracic facet joints. No acute fracture. No suspicious lytic or blastic abnormality. SOFT TISSUES: Within the right axillary region is a thin-walled fluid collection of water attenuation, measuring 8.4 cm in cephalocaudal dimension by 5.5 cm in AP diameter by 3.6 cm in transverse diameter. This fluid collection shows no internal air bubbles or surrounding fat stranding, and is consistent with seroma. There are adjacent surgical clips. More inferiorly, within the inferior lateral right breast, is a larger fluid collection which shows a thickened wall, internal air bubbles and surrounding fat stranding; this more inferior fluid collection measures 6.7 cm in transverse diameter by 5.7 cm in cephalocaudal dimension by 5.6 cm in AP diameter. Small surgical clips are noted about this fluid collection. There is mild overlying skin thickening. VASCULATURE: Thoracic aorta is calcific and is normal in caliber. No aneurysm or intimal calcification displacement. UPPER ABDOMEN Gallbladder is absent. Visualized portions of the liver, spleen, pancreas, and right adrenal gland are unremarkable. Left adrenal gland contains a 2.3 cm isodense nodule with CT attenuation of 46, unchanged as compared to prior CT of 03/11. KIDNEYS AND URETERS: The left kidney remains small/atrophic. At the upper pole the right kidney is a 1.8 cm exophytic nodule of water attenuation, consistent with simple cyst,, unchanged, and which requires no follow-up. INTRAPERITONEAL SPACE: No pneumoperitoneum is noted. CT/Chest without Contrast IMPRESSION: Findings consistent with 8.4 cm seroma within the right axilla. More inferiorly, a thick-walled 6.7 cm fluid collection with internal air bubbles and surrounding fat stranding is noted within the inferior-lateral right breast, consistent with abscess. Nonstandard communication protocol initiated. Electronically Signed: Hao Yan MD at 23:53 EDT , CC: Dr. Martina Lal DO; Dr. Venkat Burnham DO Assistant Project Manager: Signed Martina Lal DO Work Phone: Start: 05-14-2022 CT of chest without contrast Dr. Martina Lal Work Phone: Start: 05-14-2022 End: 05-14-2022 Emergency Department Summary Procedure Note: See Note; NOTES: [facility] Medical Records Department [address] [place] [address] Emergency Department Summary 05/14/22 MR#: [id number] Acct: [id number] Name: DEBBIE MIRELES Rep #: [id number] : 1935 86 From: Venkat Burnham DO PCP: Dr. Martina Lal DO Status:REG ER Location: ED HPI History of Present Illness Chief Complaint: Fever Narrative Narrative: 86-year-old female here with concern for fever and sepsis. She is accompanied by her daughter. They state patient was having fevers and chills. Noted recent seroma drainage by her surgeon. States she is got pain and erythema around the site. States this is improved slightly since onset. States she is got constant, severe, not improving symptoms. Denies any cough, denies any urinary complaints, denies any nausea or vomiting. Denies any diarrhea. Patient does endorse a mild headache as well. Denies any numbness, weakness, loss sensation, slurred speech. Patient denies sudden onset or thunderclap headache, denies medical intensive within 1 minute, vomiting, neck pain or stiffness, changes in vision, fever, history malignancy, syncope, seizures. Old chart reviewed: History of hypertension, breast cancer status post biopsy in March 2022 completed by Michael Michel seroma status post recent drainage. [facility] Medical History Ambulates with cane Arthritis Bilateral carotid artery stenosis Bilateral extracranial carotid artery stenosis Cancer Difficulty swallowing GERD (gastroesophageal reflux disease) History of edema History of IBS History of renal disease History of steroid therapy HTN (hypertension) Hyperlipidemia Leg cramps Non-smoker PONV (postoperative nausea and vomiting) Shortness of breath on exertion Sleep apnea Type 2 diabetes mellitus Wears glasses Wears hearing aid Home Medications ascorbic acid (vitamin C) 500 mg tablet 500 mg PO DAILY@0800 supplement 07/29/14 [History Last Taken 09/25/18] latanoprost 0.005 % eye drops 1 drp EACH EYE QHS 07/29/14 [History Last Taken 09/24/18] omega-3 fatty acids-fish oil 300 mg-1,000 mg capsule 1 ea PO DAILY 07/29/14 [History Last Taken 09/25/18] nateglinide 60 mg tablet 60 mg PO TID BLOOD GLUCOSE 08/27/17 [History Last Taken 09/25/18 08:00] aspirin 81 mg chewable tablet 81 mg PO DAILY HEART HEALTH 06/26/18 [History Last Taken 09/24/18] metoprolol succinate 50 mg tablet,extended release 24 hr 25 mg PO BID HTN 06/26/18 [History Last Taken 09/25/18] Cardio [facility] Healthy 1 cap PO DAILY SUPPLEMENT 05/22/20 [History Last Taken Unknown] amlodipine 5 mg tablet (Norvasc) 5 mg PO DAILY HTN 11/09/21 [History Last Taken Unknown] lisinopril 20 mg tablet 20 mg PO BID HTN 11/09/21 [History Last Taken Unknown] hydralazine 25 mg tablet 50 mg PO QHS HTN 03/18/22 [History Last Taken Unknown] artery cleanse 1 tab PO DAILY 04/01/22 [History Last Taken Unknown] cholecalciferol (vitamin D3) 125 mcg (5,000 unit) capsule 125 mcg PO DAILY 04/01/22 [History Last Taken Unknown] cinnamon bark 500 mg capsule (Cinnamon) 500 mg PO DAILY 04/01/22 [History Last Taken Unknown] circu max gold 1 dose PO DAILY SUPPLEMENT 04/01/22 [History Last Taken Unknown] liver supplement 1 cap PO QHS SUPPLEMENT 04/01/22 [History Last Taken Unknown] silver 2 tsp PO DAILY SUPPLEMENT 04/01/22 [History Last Taken Unknown] hydrocodone-acetaminophen 5-325mg 5mg-325mg 1 tab PO Q8H PRN pain 2 days #5 tabs 04/30/22 [Rx Last Taken Unknown] Allergy/AdvReac Type Severity Reaction Status Date / Time morphine AdvReac Intermediate mental Verified 05/14/22 20:21 status change meperidine HCl [From Demerol] AdvReac Mild mental Verified 05/14/22 20:21 status change Family History Brother Diabetes Heart disease Hypertension Lung cancer Mother Hypertension Brother Colon cancer Brother Cancer Brother Sleep apnea Myocardial infarction Brother Sleep apnea Other Arthritis Asthma Surgical History History of cataract extraction History of cholecystectomy History of colonoscopy History of hysterectomy History of right breast biopsy ( 03/2022) History of umbilical hernia repair Social History household members: 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 housing: house Smoking Status: Never smoker alcohol intake: never substance use type: does not use what type of physical activity do you participate in: none seatbelt use: always do you feel safe at home: Yes ROS ROS ED ROS Narrative Constitutional: Endorses fever and chills HEENT: Denies sore throat Neck: Denies neck pain Cardiovascular: Denies chest pain, syncope Respiratory: Denies shortness of breath GI: Denies nausea vomiting or abdominal pain : Denies changes in urinary habits Musculoskeletal: Denies muscle or joint pain Neurologic: Denies numbness weakness or loss of sensation, endorses headache Skin endorses skin redness and tenderness palpation of the right breast EXAM Physical Exam Narrative Exam Narrative: Nursing triage notes reviewed, Vital signs reviewed Constitutional: please see mdm HENT: MMM Eyes: Pupils equal round and reactive to light, Extraocular muscles intact Neck: No stridor, no JVD, full neck ROM Breast: Right breast edematous, swollen with confluent erythema, no obvious purulent drainage incision sites are clean dry and intact no obvious fluctuance induration, crepitus or bullae Lungs: Clear to auscultation, No wheezing or rales. No increased work of breathing, no conversational dyspnea, no accessory muscle use, no nasal flaring. No respiratory distress noted Heart: Regular rate and rhythm, No murmurs, No rubs and No gallops, 2+ distal pulses (radial, femoral, posterior tibial) in all extremities Abdomen: Soft, there is no tenderness, rigidity, rebound or guarding, no obvious peritoneal signs, no palpable pulsatile abdominal masses, no auscultated abdominal bruit : No CVAT Extremities: No edema Neuro: No focal neurological deficits, cranial nerves II through XII intact, 5/5 strength in all extremities. Intact sensation to light touch in all extremities, 2+ reflexes bilateral patella dens. Normal gait. No ataxia. Negative Kernig's and presents coffey sign no meningeal signs Skin: No rash or lesions noted Const Vital Signs: 05/14/22 20:21 05/14/22 22:08 05/14/22 23:01 Temperature 99.1 F Temperature Source Temporal Pulse Rate 68 68 Respiratory Rate 26 H 16 Respiratory Effort Normal Non-Labored Blood Pressure 191/61 H 214/50 H Blood Pressure Mean 104 104 Pulse Ox 95 86 Oxygen Delivery Method Room Air Room Air Oxygen Flow Rate (L/min) 05/14/22 23:05 05/14/22 23:08 Temperature 100.2 F H Temperature Source Oral Pulse Rate 66 Respiratory Rate 16 Respiratory Effort Blood Pressure 189/42 H Blood Pressure Mean 91 Pulse Ox 92 92 Oxygen Delivery Method Nasal Cannula Nasal Cannula Oxygen Flow Rate (L/min) 2 2 MDM MDM MDM Narrative Medical decision making narrative: 86-year-old female here with concern for fever and chills temperature is 100.1 orally at home. This in the setting of recent breast biopsy complication by seroma status post drainage. Exam concerning for ongoing infection with cellulitic changes swelling and TTP over right breast. No obvious necrotizing fasciitis noted on exam,no crepitus or bullae. Given the patient's age and concern for fever and chills and tactile fevers as well as borderline temperatures at home I obtained a broad lab and imaging work-up to further elucidate etiology of patient complaints. Specifically obtained a CT scan of the chest to rule out breast abscess. Obtained blood cultures, urine culture obtained a lactate level gave a liter of normal saline. Labs with leukocytosis, evidence of UTI. Patient continued to have elevated blood pressures, tachypnea resolved, patient was noted to be hypoxic transiently. Placed on [address] scan by my read shows evidence of chest wall abscess as well as seroma with fat stranding. Awaiting final read. Urine with evidence of inflammation. Gave broad-spectrum antibiotics. Did consult general surgery. Spoke to Dr. Keenan who will come evaluate the patient. Disposition pending surgical evaluation will likely admit to surgery versus medicine depending on Dr. Keenan evaluation. Signed out to PM physician pending surgery eval and final disposition. Lab Data Attestation: I reviewed the patient's lab results. Lab results narrative: CBC with leukocytosis suggestive of systemic inflammation, no significant anemia or thrombocytopenia BMP without significant electrolyte abnormalities, no anion gap, no acute kidney injury Lactate is wnl indicating no end-organ hypoperfusion and/or hypoxia. UA with evidence of UTI will send for culture Labs: Laboratory Results - last 24 hr 05/14/22 05/14/22 05/14/22 22:02 22:02 22:02 WBC 12.2 H RBC 4.31 Hgb 12.6 Hct 38.2 MCV 88.6 MCH 29.2 MCHC 33.0 RDW Std Deviation 44.1 H RDW Coeff of Pedro 13.6 Plt Count 258 MPV 10.4 Sodium 137 Potassium 4.7 Chloride 107 Carbon Dioxide 26.0 Anion Gap 4 L BUN 33 H Creatinine 1.30 H Estim Creat Clear Calc 23.87 Est GFR (MDRD) Af Amer 50 L Est GFR (MDRD) Non-Af 41 L BUN/Creatinine Ratio 25.4 H Glucose 98 Lactic Acid 0.9 Calcium 9.7 Urine Color Urine Clarity Urine pH Ur Specific [place] Urine Protein Urine Glucose (UA) Urine Ketones Urine Occult Blood Urine Nitrite Urine Bilirubin Urine Urobilinogen Ur Leukocyte Esterase Urine RBC Urine WBC Ur Squamous Epith Cells Urine Bacteria Urine Mucus 05/14/22 22:02 WBC RBC Hgb Hct MCV MCH MCHC RDW Std Deviation RDW Coeff of Pedro Plt Count MPV Sodium Potassium Chloride Carbon Dioxide Anion Gap BUN Creatinine Estim Creat Clear Calc Est GFR (MDRD) Af Amer Est GFR (MDRD) Non-Af BUN/Creatinine Ratio Glucose Lactic Acid Calcium Urine Color Straw Urine Clarity Clear Urine pH 7.0 Ur Specific [place] 1.010 Urine Protein 30 H Urine Glucose (UA) Normal Urine Ketones Negative Urine Occult Blood Negative Urine Nitrite Positive H Urine Bilirubin Negative Urine Urobilinogen Normal Ur Leukocyte Esterase 500 H Urine RBC 0 SEEN Urine WBC 5-10 SEEN Ur Squamous Epith Cells 5-10 SEEN Urine Bacteria 1+ Urine Mucus 0 SEEN Discharge Plan Triage Chief Complaint: Fever ED Provider: Venkat Burnham Dx/Rx/DC Orders Clinical Impression: Cellulitis of breast, Seroma, postoperative, Leukocytosis Prescriptions: No Action metoprolol succinate 50 mg tablet extended release 24 hr 25 mg PO BID Cardio [facility] Healthy 1 cap PO DAILY lisinopril 20 mg tablet 20 mg PO BID Label Comments: TAKE 1 TABLET BY MOUTH EVERY DAY amlodipine [Norvasc] 5 mg tablet 5 mg PO DAILY hydralazine 25 mg tablet 50 mg PO QHS cholecalciferol (vitamin D3) 125 mcg (5,000 unit) capsule 125 mcg PO DAILY artery cleanse 1 tab PO DAILY cinnamon bark [Cinnamon] 500 mg capsule 500 mg PO DAILY silver 2 tsp PO DAILY circu max gold 1 dose PO DAILY liver supplement 1 cap PO QHS latanoprost 1 DROP bottle 1 drp EACH EYE QHS Label Comments: EYE HEALTH ascorbic acid (vitamin C) 500 MG tablet 500 mg PO DAILY@0800 Label Comments: suppliment omega-3 fatty acids-fish oil 1 EACH capsule 1 ea PO DAILY Label Comments: supplement aspirin 81 mg tablet,chewable 81 mg PO DAILY Label Comments: PT'S LAST DOSE OF ASPIRIN WILL BE 04/26/2022 nateglinide 60 MG tablet 60 mg PO TID Label Comments: diabetes hydrocodone-acetaminophen 5-325 mg tablet 1 tab PO Q8H PRN (Reason: pain) 2 Days Qty: 5 0RF Primary Care Provider: Martina Lal Referrals: Martina Lal DO [Primary Care Provider] - What to do if you have Problems For any increased pain, shortness of breath, bleeding, nausea or vomiting, chest pain, or any unexpected problems, contact your Primary Care Provider. Call [facility] ([phone]) or report to the closest Emergency Room. Call 911 if necessary. 05/14/22 8785 <Electronically signed by Venkat Burnham DO> Cosigner Signature (if applicable): CC: Dr. Martina Lal DO Signed Martina Lal DO Work Phone: Start: 05-13-2022 End: 05-13-2022 Surgery Visit Report Procedure Note: See Note; NOTES: [facility] [address] [place] [address] OFFICE VISIT Date of Service: 05/13/22 MR#: [id number] Acct: [id number] Name: CHIDEBBIE Jana Rep #: [id number] : 1935 Provider: YAW stock Age/Sex: 86/F Location: [facility] Status: Signed Intake Vital Signs 04/30/22 08:00 Height 5 ft 1 in Intake Visit Reasons: Breast pain Chief Complaint: right breast cancer Allergies morphine Adverse Reaction (Intermediate, Verified 05/10/22 14:40) mental status change meperidine HCl [From Demerol] Adverse Reaction (Mild, Verified 05/10/22 14:40) mental status change Subjective Details: Patient is an 86 y/o F who walked into our office noting increased pain and discomfort in the right breast. Patient is s/p right breast lumpectomy. She was evaluated on and had a seroma drained. Patient was scheduled to return Friday for suture removal. She notes a sharp, stabbing, pressure sensation that she describes and difficulty raising her arm. Objective Details: Right breast- slight amount of darker redness. Incision c/d/i. Sutures in place. Firmness noted towards the medial aspect of the breast. Area was cleansed just medial to the incision on the right breast with betadine. Lidocaine was used to numb the area. A 35 cc syringe was used with an 18 gauge needle to aspirate out seroma fluid. Approximately 130 cc was aspirated. Spot band-aid was applied. Gauze dressing was applied over top of the breast incision. Patient tolerated the procedure well. Coding Level of Care Code Global Post Op Diagnoses Seroma, postoperative PFSH Medical History Ambulates with cane Arthritis Bilateral carotid artery stenosis Bilateral extracranial carotid artery stenosis Cancer Difficulty swallowing GERD (gastroesophageal reflux disease) History of edema History of IBS History of renal disease History of steroid therapy HTN (hypertension) Hyperlipidemia Leg cramps Non-smoker PONV (postoperative nausea and vomiting) Shortness of breath on exertion Sleep apnea Type 2 diabetes mellitus Wears glasses Wears hearing aid Surgical History History of cataract extraction History of cholecystectomy History of colonoscopy History of hysterectomy History of right breast biopsy ( 03/2022) History of umbilical hernia repair Family History Brother Diabetes Heart disease Hypertension Lung cancer Mother Hypertension Brother Colon cancer 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 Michel who recommended placing a seromacath. This may be accomplished on Friday when the patient is here. 05/13/22 1621 <Electronically signed by Adeola WASHINGTON PA-C> Date Adeola WASHINGTON PA-C Cosigner Signature: Date (if applicable) CC: Martina Lal DO Work Phone: Start: 05-08-2022 End: 05-08-2022 Surgery Visit Report Procedure Note: See Note; NOTES: [facility] [address] [place] [address] [address] [place] [address] OFFICE VISIT Date of Service: 05/08/22 MR#: [id number] Acct: [id number] Name: DEBBIE MIRELES Jana Rep #: [id number] : 1935 Provider: Dr. Michael carlos MD Age/Sex: 86/F Location: [facility] Status: Signed Intake Vital Signs 04/30/22 08:00 Height 5 ft 1 in Intake Visit Reasons: Post op Chief Complaint: right breast cancer Allergies morphine Adverse Reaction (Intermediate, Verified 04/30/22 08:03) mental status change meperidine HCl [From Demerol] Adverse Reaction (Mild, Verified 04/30/22 08:03) mental status change [facility] Medical History (Updated 05/08/22 @ 16:[address] Michael Michel MD) Ambulates with cane Arthritis Bilateral carotid artery stenosis Bilateral extracranial carotid artery stenosis Cancer Difficulty swallowing GERD (gastroesophageal reflux disease) History of edema History of IBS History of renal disease History of steroid therapy HTN (hypertension) Hyperlipidemia Leg cramps Non-smoker PONV (postoperative nausea and vomiting) Shortness of breath on exertion Sleep apnea Type 2 diabetes mellitus Wears glasses Wears hearing aid Surgical History History of cataract extraction History of cholecystectomy History of colonoscopy History of hysterectomy History of right breast biopsy ( 03/2022) History of umbilical hernia repair Family History Brother Diabetes Heart disease Hypertension Lung cancer Mother Hypertension Brother Colon cancer 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 Patient reports that she had pain last night. She showered this morning rubbed the area. She then started having drainage. Lumpectomy incision. Bone scan report is available now suggesting no skeletal involvement but multiple other areas which it appears radiology feels is more consistent with arthritic issues. PATHOLOGIC STAGE: T2 N0 M Stage IIa. FROZEN SECTION DIAGNOSIS A. Right axillary sentinel lymph nodes, biopsy: Two out of two lymph nodes, negative for carcinoma. AM:stevie 04/30/2022 MICROSCOPIC DIAGNOSIS A. Right axillary sentinel lymph nodes, biopsy: Two out of two lymph nodes, negative for carcinoma. B. Right breast mass, lumpectomy: Invasive ductal (mucinous) carcinoma. See cancer synoptic report below. AM:stevie 05/03/2022 COMMENT A. Immunohistochemistry ([id number]) supports the above diagnosis. INVASIVE BREAST CANCER SUMMARY: Procedure - excision with wire guidance Specimen: Type - partial breast Size ??? 8 x 5 x 4 cm Laterality ??? right breast Tumor: Site ??? not specified Size ??? 2.5 x 2 x 1.5 cm Histologic type - invasive ductal (mucinous) carcinoma. Focality - single focus Histologic Grade (Lonny grade): Glandular/tubular differentiation - score 2 Nuclear pleomorphism - score 2 [facility] DEPARTMENT OF LABORATORY SURGICAL PATHOLOGY REPORT [address] [place], [place] [address] Page 2 of 3 The contents of this transmission are privileged, confidential and exempt from disclosure under applicable law. If you have received this information in error, call . DEBBIE MIRELES MR# [id number] Mitotic count ??? score 1 Overall grade - 1 (score of 5) Ductal carcinoma in situ: Present Estimated quantification (% of tumor volume) ??? 5% Number of blocks - 3 of 12 blocks Architectural patterns ??? solid and cribriform Nuclear grade ??? grade 1 Necrosis ??? not present Lobular carcinoma in situ (LCIS) ??? not present Tumor extension: Skin ??? not applicable Nipple - not applicable Skeletal muscle - not applicable Margins: Distance of invasive carcinoma from closest margin ??? 0.5 mm from posterior margin. Distance of in situ carcinoma from closest margin - 0.5 mm from posterior margin. Lymph nodes: Number of lymph nodes examined - 2 Number of sentinel lymph nodes - 2 Number of lymph nodes with macrometastases, micrometastases and isolated tumor cells ??? 0 See specimen A. Treatment effect: Unknown Lymphvascular invasion ??? not identified Additional pathologic findings ??? fibrocystic change with associated microcalcifications. Usual intraductal hyperplasia without atypia. Ancillary studies - previously performed on section of tumor ([id number] / [id number]). ER ??? positive (>95%, strong intensity) WI - positive ( 52%, weak to moderate intensity) Her2 lc ??? negative (0) Her2 by dual CONNIE - not performed Ki67 ??? positive (15%) Microcalcifications ??? present in invasive carcinoma and benign breast tissue. Clinical history ??? Mass of breast. PATHOLOGIC STAGE: T2 N0 Mx Stage IIa Bone scan report is available now suggesting no skeletal involvement but multiple other areas which it appears radiology feels is more consistent with arthritic issues. CLINICAL: 86-year-old female with history of primary breast carcinoma. WHOLE BODY 99m Tc MDP RADIONUCLIDE BONE SCINTIGRAPHY COMPARISON: None available FINDINGS: Following the intravenous administration of 27.4 mCi of 99m Tc MDP, whole body bone images reveal: 1.??? Increased radiopharmaceutical concentration is defined in the left elbow, the visualized left wrist, the acromioclavicular and sternoclavicular compartments of both shoulders, the glenohumeral compartment of the left shoulder, the patellofemoral and medial tibial compartments of both knees, the bilateral midfoot. 2. The remaining skeletal structures are scintigraphically unremarkable with normal-appearing renal images and urinary bladder activity identified. There is scintigraphic evidence of hyperostosis frontalis. NM/Bone Scan Whole Body IMPRESSION: 1.??? Enhanced tracer concentration visualized in the left elbow and left wrist, bilateral shoulders, both knee articulations, right-left midfoot. 2.??? There is no definitive scintigraphic evidence of skeletal metastatic disease. ??? Electronically Signed: Justyn Palma, at 21:56 EDT , Exam Chest Other: Several of the Steri-Strips have been removed from the right breast incision. There is some serous drainage. I do not see any erythema of concern Assessment and Plan Assessment and Plan (1) Seroma, postoperative: Status: Acute Plan: Right breast lumpectomy seroma as would be anticipated with the procedure. We prepped the area with Betadine evacuated much of the seroma used 1% lidocaine total 4 cc used simple sutures of 4-0 nylon reapproximated the leaking spot. Did not see any signs of infection no odor no purulence. Sterile dressings were generously reapplied. Wound care instructions provided. The patient will return to the office in 6 days for further inspection. We discussed antibiotics and at this point I see no signs of infection and do not believe that that we will cyst at this time I do not believe that that the issue at the moment but simply a draining seroma. Referral to medical oncology has been recommended. We will assist with that process. Copy: Dr. Martina Michel M.D., F.A.C.S. Coding Level of Care Code Global Post Op Diagnoses Seroma, postoperative 05/08/22 2954 <Electronically signed by Michael Michel MD> Date Michael Michel MD Cosigner Signature: Date (if applicable) CC: Dr. Martina Lal, DO Martina Lal DO Work Phone: Start: 05-06-2022 End: 05-06-2022 Bone Scan Whole Body Procedure Note: See Note; NOTES: [facility] Imaging Services [address] [place] [address] Bone Scan Whole Body MR#: [id number] Acct: [id number] Name: DEBBIE MIRELES Rep #: [id number] : 1935 F 86 From: Justyn DIAZ: Dr. Martina Lal DO Status: REG CLI Study: Bone Scan Whole Body Date of Exam: 05/06/22 Exam# [id number] Ordering Dr: Martina Lal DO CLINICAL: 86-year-old female with history of primary breast carcinoma. WHOLE BODY 99m Tc MDP RADIONUCLIDE BONE SCINTIGRAPHY COMPARISON: None available FINDINGS: Following the intravenous administration of 27.4 mCi of 99m Tc MDP, whole body bone images reveal: 1. Increased radiopharmaceutical concentration is defined in the left elbow, the visualized left wrist, the acromioclavicular and sternoclavicular compartments of both shoulders, the glenohumeral compartment of the left shoulder, the patellofemoral and medial tibial compartments of both knees, the bilateral midfoot. 2. The remaining skeletal structures are scintigraphically unremarkable with normal-appearing renal images and urinary bladder activity identified. There is scintigraphic evidence of hyperostosis frontalis. NM/Bone Scan Whole Body IMPRESSION: 1. Enhanced tracer concentration visualized in the left elbow and left wrist, bilateral shoulders, both knee articulations, right-left midfoot. 2. There is no definitive scintigraphic evidence of skeletal metastatic disease. Electronically Signed: Justyn Palma, at 21:56 EDT Reading Location ID and State: [facility] / MD Tel , Service support , CC: Dr. Martina Lal DO Assistant Project Manager: Signed Martina Lal DO Work Phone: Start: 05-06-2022 Radionuclide whole body bone study Dr. Martina Lal Work Phone: Start: 04-30-2022 End: 04-30-2022 Operative Report Procedure Note: See Note; NOTES: [facility] Medical Records Department [address] [place] [address] Operative Report 04/30/22 1053 MR#: [id number] Acct: [id number] Name: DEBBIE MIRELES Rep #: [id number] : 1935 86 From: Michael Michel MD PCP: Dr. Martina Lal, DO [place] [place] [address]1 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 86-year-old female was taken to the operating placed upon the table underwent general endotracheal esthesia the patient had previously had nuclear tracer injected per radiology the right breast was prepped and 2-1/2 cc of isosulfan blue dye was injected retroareolar and massage was performed for 3 minutes. The right arm was placed in soft roll at right angles to the table. The right breast and axilla were sterilely prepped and draped. Ultrasound was used to identify the lesion in the far lateral right breast and under ultrasound guidance a Kopan's needle was inserted. Then a oblique incision was made in the right axilla sharp dissection carried down through the subcutaneous tissue blue dye tracking was identified what appeared to be a blue lymph node was identified and using electrocautery complete circumferential dissection was performed hemostasis attained with hemoclips. At the completion there was no palpable remaining nodes no visible remaining blue nodes and no neoprobe remaining hot nodes. Specimen was sent for frozen section where 2 sentinel nodes have been submitted and both negative for carcinoma. A slightly curvilinear incision was made in the outer mid right breast guided by the wire electrocautery dissection performed the lesion was circumferentially completely excised a short suture was placed anteriorly a long suture laterally and a area not placed superiorly. Images demonstrated the previous marking clip to be in place the lesion was felt to been completely removed per pathology with a 5 mm posterior margin. Each wound was made hemostatic with electrocautery and 3-0 Vicryl sutures. Each wound was approximated with deeper sutures in interrupted 3-0 Vicryl and then skin edges were approximated running septic or 4-0 Monocryl. Each incision was anesthetized with 0.25% Marcaine a total of 30 cc was used. Sponge and instrument and needle counts were reported to the surgeon to be correct blood loss minimal. No apparent complication. The patient was taken to the recovery room in satisfactory condition. Synoptic Portion: Element Response Options Operation performed with curative intent. Yes Tracer(s) used to identify sentinel nodes in the upfront surgery (non-neoadjuvant) setting (select all that apply). Isosulfan blue dye and radioactive tracer Tracer(s) used to identify sentinel nodes in the neoadjuvant setting (select all that apply). Not applicable All nodes (colored or non-colored) present at the end of a dye-filled lymphatic channel were removed. Yes All significantly radioactive nodes were removed. Yes All palpably suspicious nodes were removed. Yes Biopsy-proven positive nodes marked with clips prior to chemotherapy were identified and removed. Not applicable Surgeon: Michael Michel Type of Anesthesia: General and Local Anesthesiologist: Abida Whyte 04/30/22 1456 <Electronically signed by Michael Michel MD> Cosigner Signature (if applicable): CC: Dr. Martina Lal, ; Dr. Michael Michel MD Signed Martina Lal DO Work Phone: Start: 04-30-2022 End: 04-30-2022 Breast Biopsy Specimen Procedure Note: See Note; NOTES: [facility] Imaging Services [address] [place] [address] Breast Biopsy Specimen MR#: [id number] Acct: [id number] Name: DEBBIE MIRELES Rep #: [id number] : 1935 F 86 From: Reid corea MD PCP: Dr. Martina Lal DO Status: [facility] Study: Breast Biopsy Specimen Date of Exam: 04/30/22 Exam# [id number] Ordering Dr: Michael Michel MD SURGICAL BREAST SPECIMEN RADIOGRAPH CLINICAL: Document presence of mass in biopsy specimen. FINDINGS: Specimen shows presence of mass. Electronically Signed: Reid Hernandez MD at 11:30 EDT , BI/Breast Biopsy Specimen IMPRESSION: undefined CC: Dr. Martina Lal DO; Dr. Michael Michel MD Assistant Project Manager: Signed Michael Michel MD Work Phone: Start: 04-30-[address] Martina Lal Work Phone: Start: 04-30-2022 Breast, Lumpectomy,SN w/ Neoprobe (Right) Dr. Martina Lal Work Phone: Start: 04-30-2022 End: 04-30-2022 Lymph Node Injection Only Procedure Note: See Note; NOTES: [facility] Imaging Services [address] [place] [address] Lymph Node Injection Only MR#: [id number] Acct: [id number] Name: DEBBIE MIRELES Rep #: [id number] : 1935 F 86 From: Reid corea MD PCP: Dr. Martina Lal DO Status: [facility] Study: Lymph Node Injection Only Date of Exam: Exam# [id number] Ordering Dr: Michael Michel MD PROCEDURE: NUCLEAR MEDICINE Injection Wells Node - RIGHT breast(s). REASON FOR EXAM: Female, 86 years old. Right breast cancer. TECHNIQUE: Wells node localization using radionuclide methods of the RIGHT breast(s) was performed following subcutaneous administration of 1.1 mCi of of sulfur colloid Tc-99m. FINDINGS: 1.1 mCi of technetium labeled sulfur colloid was injected subcutaneously in 4 equal aliquots in the jose alberto-areolar region. NM/Lymph Node Injection Only IMPRESSION: 1.1 mCi of technetium labeled sulfur colloid was injected subcutaneously in 4 equal aliquots in the periareolar region for sentinel node imaging. Electronically Signed: Reid Hernandez MD at 8:43 EDT , CC: Dr. Martina Lal DO; Dr. Michael Michel MD Assistant Project Manager: Signed Michael Michel MD Work Phone: Start: 04-30-2022 Radionuclide sentinel lymph node study Dr. Martina Lal Work Phone: Start: 04-30-2022 End: 04-30-2022 Discharge Instruction Procedure Note: See Note; NOTES: [facility] Medical Records Department [address] [place] [address] Instructions for Home/Discharge Instructions 04/30/22725 MR#: [id number] Acct: [id number] Name: DEBBIE MIRELES Rep #: [id number] : 1935 86 From: Michael Michel MD PCP: Dr. Martina Lal DO [place] [place] Inst[place] Procedure Breast Surgery Diet Discharge Diet: No restrictions Activity Discharge Activity: May Not Drive (for 2-3 days or while taking narcotic pain meds.) May shower in (days): 1 Lifting Restrictions: 10 pounds for 1 week. Dressing / Incision Call your doctor if your incision/area has: Continuous Slow Oozing and Sudden Increased Bleeding Call your doctor if you observe: Fever of 101 or Higher Suture Line Care: Avoid Pulling/Pushing and Avoid Pinching/Bending Remove Dressing in: 1 day Additional Dressing/Incision Instructions:: Remove bulky dressing tomorrow. May leave any opsite dressing for 3-4 days. Keep dressing in place until your follow-up appointment. Follow Up Care Test Results: Test results from this visit will be discussed in further detail at your follow-up appointment, if applicable. Discharge Plan Admission Attending Provider: Michael Michel Primary Care Provider: Martina Lal Discharge Orders/Prescriptions Prescriptions: No Action metoprolol succinate 50 mg tablet extended release 24 hr 25 mg PO BID Cardio [facility] Healthy 1 cap PO DAILY lisinopril 20 mg tablet 20 mg PO BID Label Comments: TAKE 1 TABLET BY MOUTH EVERY DAY amlodipine [Norvasc] 5 mg tablet 5 mg PO DAILY hydralazine 25 mg tablet 50 mg PO QHS cholecalciferol (vitamin D3) 125 mcg (5,000 unit) capsule 125 mcg PO DAILY artery cleanse 1 tab PO DAILY cinnamon bark [Cinnamon] 500 mg capsule 500 mg PO DAILY silver 2 tsp PO DAILY circu max gold 1 dose PO DAILY liver supplement 1 cap PO QHS latanoprost 1 DROP bottle 1 drp EACH EYE QHS Label Comments: EYE HEALTH ascorbic acid (vitamin C) 500 MG tablet 500 mg PO DAILY@0800 Label Comments: suppliment omega-3 fatty acids-fish oil 1 EACH capsule 1 ea PO DAILY Label Comments: supplement aspirin 81 mg tablet,chewable 81 mg PO DAILY Label Comments: PT'S LAST DOSE OF ASPIRIN WILL BE 04/26/2022 nateglinide 60 MG tablet 60 mg PO TID Label Comments: diabetes Referrals / Follow Up: Martina Lal DO [Primary Care Provider] - Disposition Disposition (needs filled in before D/C Order can be placed): Home, Self Care 04/30/22 5489<Electronically signed by Michael Michel MD>Michael Michel MD CC: Dr. Martina Lal DO Signed Martina Lal DO Work Phone: Start: 04-30-2022 End: 04-30-2022 History and Physical Exam Procedure Note: See Note; NOTES: [facility] Medical Records Department [address] [place] [address] History Physical Exam 04/30/2223 MR#: [id number] Acct: [id number] Name: DEBBIE MIRELES Rep #: [id number] : 1935 86 From: Michael Michel MD PCP: Dr. Martina Lal DO Status:[facility] Location: [place] [address] History and Physical Date of Admission: 04/30/22 [facility] Complaint: right breast cancer Wardrobe Mistress Required: No Is patient in pain?: No Allergies morphine Adverse Reaction (Intermediate, Verified 04/15/22 13:37) mental status changemeperidine HCl [From Demerol] Adverse Reaction (Mild, Verified 04/15/22 13:37) mental status change Medications ascorbic acid (vitamin C) 500 mg tablet 500 mg PO DAILY@0800 supplement 07/29/14 [History Confirmed 04/15/22] latanoprost 0.005 % eye drops 1 drp EACH EYE QHS 07/29/14 [History Confirmed 04/15/22] omega-3 fatty acids-fish oil 300 mg-1,000 mg capsule 1 ea PO DAILY 07/29/14 [History Confirmed 04/15/22] nateglinide 60 mg tablet 60 mg PO TID 08/27/17 [History Confirmed 04/15/22] aspirin 81 mg chewable tablet 81 mg PO .qod 06/26/18 [History Confirmed 04/15/22] metoprolol succinate 50 mg tablet,extended release 24 hr 50 mg PO DAILY 06/26/18 [History Confirmed 04/15/22] Cardio [facility] PO DAILY 05/22/20 [History Confirmed 04/15/22] amlodipine 5 mg tablet 5 mg PO DAILY 11/09/21 [History Confirmed 04/15/22] furosemide 40 mg tablet 40 mg PO DAILY 11/09/21 [History Confirmed 04/15/22] lisinopril 20 mg tablet 20 mg PO BID 11/09/21 [History Confirmed 04/15/22] potassium chloride 10 mEq capsule,extended release 10 meq PO DAILY 11/09/21 [History Confirmed 04/15/22] rosuvastatin 5 mg tablet 5 mg PO DAILY 11/09/21 [History Confirmed 04/15/22] hydralazine 25 mg tablet 50 mg PO QDAY 03/18/22 [History Confirmed 04/15/22] artery cleanse PO 04/01/22 [History Confirmed 04/15/22] cholecalciferol (vitamin D3) 125 mcg (5,000 unit) capsule 125 mcg PO DAILY 04/01/22 [History Confirmed 04/15/22] cinnamon bark 500 mg capsule (Cinnamon) 500 mg PO DAILY 04/01/22 [History Confirmed 04/15/22] circu max gold PO 04/01/22 [History Confirmed 04/15/22] liver supplement PO 04/01/22 [History Confirmed 04/15/22] silver PO 04/01/22 [History Confirmed 04/15/22] Is last menstrual period known: No Post menopausal: Yes Patient : No PFSH Medical History???(Updated 04/15/22 @ 13:37 by Norma Ribeiro) Bilateral carotid artery stenosis Bilateral extracranial carotid artery stenosis GERD (gastroesophageal reflux disease) HTN (hypertension) Hyperlipidemia Type 2 diabetes mellitus Surgical History???(Updated 04/09/22 @ 15:39 by Norma Ribeiro) History of cataract extraction History of cholecystectomy History of hysterectomy History of right breast biopsy ( 03/2022) History of umbilical hernia repair Family History??? Brother Diabetes Heart disease Hypertension Lung cancerMother HypertensionBrother Colon cancerBrother CancerBrother Sleep apnea Myocardial infarctionBrother Sleep apneaOther Arthritis Asthma Social History??? household members:??? 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 house Smoking Status:??? Never smoker alcohol intake:??? never substance use type:??? does not use what type of physical activity do you participate in:??? none seatbelt use:??? always do you feel safe at home:??? Yes HPI HPI HPI: 86-year-old female returns to discuss results of her ultrasound-guided needle core biopsy far upper lateral right breast biopsy that I performed for her on April 09, 2022.??? She presents with her son and [id number].??? Today's appointment was a 30-minute [id number] consultative appointment regarding the finding of right breast cancer.??? The patient states that since her injection per Dr. Alamo her back is better but not completely resolved.??? She does have an upcoming appointment with him. 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 RESULT E-Cad??? (ECH-6) ? positive CK8??? ([id number])??? positive Calponin-1 (OQ015N) ? negative CK5-6??? (D5 1684) ? negative P40??? (BC28) ??? negative P53??? (DO-7) ? positive, rare cells, weak Ki-67??? (30-9)? positive, low, 15% ??? MORPHOMETRIC ANALYSIS? ER (clone 6F11)? >95%, strong intensity WI (clone 16/1E2) ? 52%, weak to moderate intensity Her-2Neu (clone CB11)? 0 My previous notes reflect the following Visit Reasons:???R BREAST BIRADS 4 Chief Complaint: abn breast US --right Wardrobe Mistress Required: No Is patient in pain?: No Allergies morphine Adverse Reaction (Intermediate, Verified 04/09/22 15:29) mental status changemeperidine HCl [From Demerol] Adverse Reaction (Mild, Verified 04/09/22 15:29) mental status change Medications ascorbic acid (vitamin C) 500 mg tablet 500 mg PO DAILY@0800 supplement 07/29/14 [History Confirmed 04/09/22] latanoprost 0.005 % eye drops 1 drp EACH EYE QHS 07/29/14 [History Confirmed 04/09/22] omega-3 fatty acids-fish oil 300 mg-1,000 mg capsule 1 ea PO DAILY 07/29/14 [History Confirmed 04/09/22] nateglinide 60 mg tablet 60 mg PO TID 08/27/17 [History Confirmed 04/09/22] aspirin 81 mg chewable tablet 81 mg PO .qod 06/26/18 [History Confirmed 04/09/22] metoprolol succinate 50 mg tablet,extended release 24 hr 50 mg PO DAILY 06/26/18 [History Confirmed 04/09/22] Cardio [facility] PO DAILY 05/22/20 [History Confirmed 04/09/22] amlodipine 5 mg tablet 5 mg PO DAILY 11/09/21 [History Confirmed 04/09/22] furosemide 40 mg tablet 40 mg PO DAILY 11/09/21 [History Confirmed 04/09/22] lisinopril 20 mg tablet 20 mg PO BID 11/09/21 [History Confirmed 04/09/22] potassium chloride 10 mEq capsule,extended release 10 meq PO DAILY 11/09/21 [History Confirmed 04/09/22] rosuvastatin 5 mg tablet 5 mg PO DAILY 11/09/21 [History Confirmed 04/09/22] hydralazine 25 mg tablet 50 mg PO QDAY 03/18/22 [History Confirmed 04/09/22] artery cleanse PO 04/01/22 [History Confirmed 04/09/22] cholecalciferol (vitamin D3) 125 mcg (5,000 unit) capsule 125 mcg PO DAILY 04/01/22 [History Confirmed 04/09/22] cinnamon bark 500 mg capsule (Cinnamon) 500 mg PO DAILY 04/01/22 [History Confirmed 04/09/22] circu max gold PO 04/01/22 [History Confirmed 04/09/22] liver supplement PO 04/01/22 [History Confirmed 04/09/22] silver PO 04/01/22 [History Confirmed 04/09/22] Is last menstrual period known: No Post menopausal: Yes Patient : No PFSH Medical History???(Updated 04/09/22 @ 16:[address] Michael Michel MD) Bilateral carotid artery stenosis Bilateral extracranial carotid artery stenosis GERD (gastroesophageal reflux disease) HTN (hypertension) Hyperlipidemia Type 2 diabetes mellitus Surgical History???(Updated 04/09/22 @ 15:39 by Norma Ribeiro) History of cataract extraction History of cholecystectomy History of hysterectomy History of right breast biopsy ( 03/2022) History of umbilical hernia repair Family History??? Brother Diabetes Heart disease Hypertension Lung cancerMother HypertensionBrother Colon cancerBrother CancerBrother Sleep apnea Myocardial infarctionBrother Sleep apneaOther Arthritis Asthma Social History??? household members:??? 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 house Smoking Status:??? Never smoker alcohol intake:??? never substance use type:??? does not use what type of physical activity do you participate in:??? none seatbelt use:??? always do you feel safe at home:??? Yes HPI HPI HPI: 86-year-old female is being referred because of abnormal breast imaging.??? I saw this patient previously on March 18, 2022.??? Multiple concerns at that time. My impression On further review September 28, 2018 she had a chest CT without contrast.??? This showed small bilateral pleural effusions at that time and coronary calcification.??? 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 On her most recent CAT scan of the abdomen pelvis February 25 there appears to be a nodule in the right breast which is not commented upon.??? I did asked the patient regarding her most recent mammography and she stated not for an extended period of time because they are too painful for causing her almost to faint. I have described to her that her incarcerated ventral incisional hernias are at the umbilicus and infraumbilical and likely have omentum within.??? There is no evidence of bowel.??? She is completely asymptomatic at that location.??? Her body habitus would not lend well to it attempt at recurrent repair. Regarding the patient's right upper quadrant and flank discomfort I am more suspicious that this is musculoskeletal in etiology.??? Regarding the incidental right breast imaging not sure that this plays a role. I have recommended to the patient that we get thoracic spine x-rays looking for potential for acute compression fracture.??? I also recommended the patient bilateral breast mammography. She will consider her treatment options.??? At this point I am not detecting a general surgical etiology to her discomfort and will refer her back to Dr. Martina Lal.??? I do appreciate the kind opportunity of assisting with her surgical care Although recommended it is not clear to me that the patient will pursue the breast mammography.??? This has been recommended however. She did pursue breast mammography and breast ultrasonography. The images did demonstrate BI-RADS 4 a 2.5 x 1 cm slightly lobulated hypoechoic nodule 11 o'clock position right breast.??? Biopsy recommended. March 29, 2022 MAMMOGRAPHY - BILATERAL SCREENING REASON FOR EXAM:? Female, 86 years old.??? Routine annual screening examination. PERTINENT HISTORY:??? Non-contributory. TECHNIQUE: ??? Digital bilateral breast robinson (3D mammographic acquisition) in the CC and MLO projections. 2-D mediolateral oblique (MLO) and craniocaudad (CC) views of both breasts were obtained.??? CAD: Full Field Digital Mammography with Computer Added Detection was performed. COMPARISON: ??? No comparison mammograms available at this time.??? If any prior films become available, an addendum to this report can be generated. FINDINGS: Breast Composition:??? There are scattered areas of fibroglandular density. Asymmetrical density is seen in the deep upper lateral aspect of the right breast.??? This may represent asymmetrical glandular tissue although correlation with ultrasound is recommended. No other significant abnormalities are identified. BI/SCRN MAMM (CAD)W/ROBINSON BILAT IMPRESSION: Asymmetrical density in the upper deep outer aspect of the right breast as described.??? Correlation with ultrasound recommended. ? ASSESSMENT CATEGORY: BIRADS Category 0:??? Incomplete.??? Need additional imaging evaluation.??? A letter regarding these results will be sent to the patient by the facility within 30 days. ??? Approximately 10% of breast cancers are not detected by mammography.??? A normal mammogram should not delay biopsy of a clinically suspicious abnormality. ??? [id number] ??? Electronically Signed: Reid Hernandez MD at 14:15 EDT , March 29, 2022 STUDY: ??? ULTRASOUND BREAST - RIGHT REASON FOR EXAM: ??? Female, 86 years old.??? Abnormal screening mammogram. TECHNIQUE: ??? Axial and longitudinal images of the RIGHT breast were performed with a high resolution ultrasound transducer. # OF IMAGES:??? 16 COMPARISON: ??? Comparison is made with prior study dated 03/27/2022. FINDINGS: RIGHT Breast: This is a 2.5 cm x 1 cm slightly lobulated hypoechoic nodule at 11 o''clock position in the breast adjacent to the axilla.??? A biopsy is recommended. US/Breast Limited Unilateral IMPRESSION: 2.5 cm x 1 cm??? slightly lobulated hypoechoic nodule at 11 o''clock position of the breast adjacent to the axilla.??? Biopsy is recommended. ??? ASSESSMENT CATEGORY: BIRADS Category 4:??? Suspicious - Biopsy Should Be Considered.??? A letter regarding these results will be sent to the patient by the facility within 30 days. ??? Electronically Signed: Reid Hernandez MD at 9:45 EDT , ROS General General: No weight change, appetite, fatigue, colon cancer, breast cancer or weakness HEENT HEENT: No difficulty swallowing, eye injury, eye surgery, swollen glands or hoarseness Endo Endocrine: Yes diabetes mellitus; No thyroid disease, thyroid cancer, Hair loss, heat intolerance or cold intolerance Breast Breast: No left breast lump, right breast lump, nipple discharge, breast pain, abnormal mammogram, abnormal US or breast enlargement Musc Musculoskeletal: Yes back problems and arthritis; No rheumatoid arthritis, gout or joint pain Cardio Cardiovascular: Yes high blood pressure; No murmur, pacemaker, heart disease, atrial fibrillation, heart attack, heart stent, palpitations, shortness of breat with exertion or chest pain Psych Psychiatric: No depression, anxiety or hearing voices Resp Respiratory: No shortness of breath, No sleep apnea, Yes cough, No COPD, No asthma, No emphysema and No wheezing Gastro Gastrointestinal: Yes abdominal pain, No nausea or vomiting, No diarrhea, No constipation, No blood in stool, No acid reflux, No hemorrhoids, No ulcers, No gallbladder problem and No black,tarry stools Star Hematologic: No blood thinners, No blood disorders, No bleeding, No anemia and No blood clots Neuro Neurologic: No weakness Office Procedures Biopsy Provider Documentation Ultrasound-guided needle core biopsy lateral upper outer quadrant right breast mass Timeout informed consent was obtained.??? The patient was taken the procedure room initially placed in a modified left lateral decubitus position but it was evident that the lesion in question was rather far laterally placed.??? She was then placed in a full left sided position.??? Upper quadrant right breast prepped with Betadine.??? Under ultrasound guidance 1% lidocaine mixed 50-50 with 0.5% Marcaine was used as local anesthetic.??? 10 cc was used.??? A small stab incision was created.??? A 14-gauge Monopty needle was advanced to prefire depth.??? Pre and post fire films were obtained.??? 3 cores were obtained.??? A marking clip was left in position.??? She tolerated that well.??? Blood loss was minimal.??? I felt that I had adequate tissue.??? Specimens were immediately transferred to formalin for analysis.??? No apparent complication. Michael Michel M.D., F.A.C.S. Biopsy Breast Biopsy: [id number] US Guidance Procedure Time Out Time Out Informed consent given: Yes Consent signed: Yes Time out checklist: patient, procedure, site marked/identified, positioning of patient, supplies available, allergies confirmed and team agrees on procedure Time out staff in room: Yes Time out verified: Yes Time out date: 04/09/22 Time out time: 15:39 Assessment and Plan Assessment and Plan (1) Abnormal ultrasound of breast: ?Status:???Acute ?Plan: Abnormal upper quadrant right breast mammogram and ultrasound.??? Seemingly successful ultrasound- guided needle core biopsy.??? The patient's been given activity wound care instructions.??? She will be notified results of soon as they become available. It is of note that since the patient's previous visit where I suggested to her flank pain may be emanating from her back she did obtain injections with marked improvement in her discomfort.??? She remains surprised that this was likely source of her complaints ROS General General: No weight change, appetite, fatigue, colon cancer, breast cancer or weakness HEENT HEENT: No difficulty swallowing, eye injury, eye surgery, swollen glands or hoarseness Endo Endocrine: Yes diabetes mellitus; No thyroid disease, thyroid cancer, Hair loss, heat intolerance or cold intolerance Breast Breast: No left breast lump, right breast lump, nipple discharge, breast pain, abnormal mammogram, abnormal US or breast enlargement Musc Musculoskeletal: Yes back problems and arthritis; No rheumatoid arthritis, gout or joint pain Cardio Cardiovascular: Yes high blood pressure; No murmur, pacemaker, heart disease, atrial fibrillation, heart attack, heart stent, palpitations, shortness of breat with exertion or chest pain Psych Psychiatric: No depression, anxiety or hearing voices Resp Respiratory: No shortness of breath, No sleep apnea, Yes cough, No COPD, No asthma, No emphysema and No wheezing Gastro Gastrointestinal: Yes abdominal pain, No nausea or vomiting, No diarrhea, No constipation, No blood in stool, No acid reflux, No hemorrhoids, No ulcers, No gallbladder problem and No black,tarry stools Star Hematologic: No blood thinners, No blood disorders, No bleeding, No anemia and No blood clots Neuro Neurologic: No weakness Assessment and Plan Assessment and Plan (1) Breast cancer, right breast: ?Status:???Acute ?Plan: I am recommending to the patient a nuclear tracer and blue dye right axillary sentinel lymph node biopsy with ultrasound-guided wire localization upper lateral right breast lumpectomy.??? In great detail I discussed the technique, benefit, risk, alternatives.??? No guarantees of success been offered.??? We have briefly discussed that frequently this treatment is combined with radiotherapy.??? I have instructed her that she is estrogen receptor positive and so likely it would be recommended to have hormonal therapy post procedure.??? Based upon her age and based upon pathologic findings she might be a candidate able to forego the radiation treatment. I have compared and contrasted this to a right mastectomy.??? I am not in favor of that much surgery for this patient at this time. With her ongoing back complaints I recommend to her a preoperative bone scan.??? She has had an opportunity to ask and have questions answered.??? She will discuss with her family members and notify me when convenient.??? We will tentatively look for potential operative date. I appreciate the ongoing opportunity of assisting with her surgical care. CT scan abdomen pelvis February 25, 2022 CT/Abdomen/Pelvis WITH Contrast IMPRESSION: 1.??? Nonvisualization the appendix.??? There is no right lower quadrant inflammatory change. 2.??? Ventral hernias. 3.??? Hiatal hernia. 4.??? Colonic diverticulosis without acute inflammatory change. 5.??? Left adrenal enhancing mass.??? This does not have the appearance of an adenoma.??? Follow-up required. 6.??? 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 7.??? Multiple right renal cysts.??? These require no further follow-up Copy: Dr. Martina Michel M.D., F.A.C.S 04/30/22 [id number] <Electronically signed by Michael Michel MD> Cosigner Signature (if applicable): CC: Dr. Martina Lal DO; Dr. Michael Michel MD Signed Martina Lal DO Work Phone: Start: 04-25-2022 End: 04-26-2022 Dexa Bone Density Study Procedure Note: See Note; NOTES: [facility] [address] [place] [address] Dexa Bone Density Study MR#: [id number] Acct: [id number] Name: DEBBIE MIRELES Rep #: [id number] : 1935 F 86 From: Reid corea MD PCP: Dr. Martina Lal DO Status: REG CLI Study: Dexa Bone Density Study Date of Exam: 04/25/22 Exam# [id number] Ordering Dr: Martina Lal DO STUDY: DUAL ENERGY X-RAY ABSORPTIOMETRY / DXA REASON FOR EXAM: Female, 86 years old. Z780. Patient is postmenopausal. TECHNIQUE: Bone Mineral Density (BMD) measurements of lumbar spine and bilateral hips were obtained. COMPARISON: None. FINDINGS: Lumbar Spine (L1-L4): g/cm2 (1.216) / T-score (1.8) / Z-score (4.6) Findings are suggestive of normal bone density with a low fracture risk. Left Femur Total: g/cm2 (1.083) / T-score (1.2) / Z-score (3.5) Left Femoral Neck: g/cm2 (0.787) / T-score (-0.6) / Z-score (2.0) Right Femur Total: g/cm2 (1.016) / T-score (0.6) / Z-score (2.9) Right Femoral Neck: g/cm2 (0.764) / T-score (-0.8) / Z-score (1.8) BD/Dexa Bone Density Study IMPRESSION: The patient is considered normal as outlined below according to World Bertram Organization (WHO) criteria with a low fracture risk. Reference Information: The T-score is the number of standard deviations above or below the standard which is normal for young adults at their peak bone mineral density. The World Health Organization (WHO) interprets the T-scores as follows: Above -1 Normal bone density Between -1 and -2.5 Osteopenia Equal to / or below -2.5 Osteoporosis As a practical clinical guideline, osteopenia may be graded as follows: Mild -1 through -1.5 Moderate -1.6 through -2.0 Severe -2.1 through -2.4 The Z-score is the number of standard deviations above or below age-matched controls. A Z-score of less than -1.5 would be considered abnormal. References: 1. NIH Osteoporosis and Related Bone Diseases www osteo.org 2. International Society for Clinical Densitometry www iscd.org 3. National Osteoporosis Foundation www nof.org Electronically Signed: Reid Hernandez MD at 9:38 EDT , CC: Dr. Martina Lal DO Assistant Project Manager: Signed Matrina Lal DO Work Phone: Start: 04-25-2022 Dual energy X-ray absorptiometry Dr. Martina Lal Work Phone: Start: 04-25-2022 End: 04-25-2022 Chest PA and Lateral Procedure Note: See Note; NOTES: [facility] [address] [place] [address] Chest PA and Lateral MR#: [id number] Acct: [id number] Name: DEBBIE MIRELES Rep #: [id number] : 1935 F 86 From: Baljit Lam MD PCP: Dr. Martina Lal DO [place] [facility] [place]: Chest PA and Lateral Date of Exam: 04/25/22 Exam# [id number] Ordering Dr: Michael Michel MD STUDY: X-RAY CHEST REASON FOR EXAM: Female, 86 years old. Breast cancer. TECHNIQUE: Frontal and lateral views of the chest. COMPARISON: 09/27/2018. FINDINGS: Stable low volume inspiration with minimal bibasilar atelectasis. There is no demonstrated pleural abnormality. Cardiomegaly unchanged. Normal mediastinum and tomasa. Normal visualized pulmonary arteries. Stable aortic tortuosity with calcification. Thoracic osteopenia, mild diffuse spondylosis and increased kyphosis, unchanged. Normal visualized ribs, clavicles, and shoulders. There is no demonstrated abnormality of the visualized soft tissue structures of the upper abdomen. RAD/Chest PA and Lateral IMPRESSION: Stable chest with no acute superimposed findings since the prior study. Electronically Signed: Baljit Lam, at 11:42 EDT , CC: Dr. Martina Lal DO; Dr. Michael Michel MD Assistant Project Manager: Signed Michael Michel MD Work Phone: Start: 04-25-2022 Plain chest X-ray Dr. Martina Lal Work Phone: Start: 04-15-2022 End: 04-15-2022 Surgery Visit Report Procedure Note: See Note; NOTES: [facility] [address] [place] [address] OFFICE VISIT Date of Service: 04/15/22 MR#: [id number] Acct: [id number] Name: DEBBIE MIRELES Rep #: [id number] : 1935 Provider: Dr. Michael carlos MD Age/Sex: 86/F Location: [facility] Status: Signed Intake Intake Visit Reasons: discuss breast path Chief Complaint: right breast cancer Wardrobe Mistress Required: No Is patient in pain?: No Allergies morphine Adverse Reaction (Intermediate, Verified 04/15/22 13:37) mental status change meperidine HCl [From Demerol] Adverse Reaction (Mild, Verified 04/15/22 13:37) mental status change Medications ascorbic acid (vitamin C) 500 mg tablet 500 mg PO DAILY@0800 supplement 07/29/14 [History Confirmed 04/15/22] latanoprost 0.005 % eye drops 1 drp EACH EYE QHS 07/29/14 [History Confirmed 04/15/22] omega-3 fatty acids-fish oil 300 mg-1,000 mg capsule 1 ea PO DAILY 07/29/14 [History Confirmed 04/15/22] nateglinide 60 mg tablet 60 mg PO TID 08/27/17 [History Confirmed 04/15/22] aspirin 81 mg chewable tablet 81 mg PO .qod 06/26/18 [History Confirmed 04/15/22] metoprolol succinate 50 mg tablet,extended release 24 hr 50 mg PO DAILY 06/26/18 [History Confirmed 04/15/22] Cardio [facility] Healthy PO DAILY 05/22/20 [History Confirmed 04/15/22] amlodipine 5 mg tablet 5 mg PO DAILY 11/09/21 [History Confirmed 04/15/22] furosemide 40 mg tablet 40 mg PO DAILY 11/09/21 [History Confirmed 04/15/22] lisinopril 20 mg tablet 20 mg PO BID 11/09/21 [History Confirmed 04/15/22] potassium chloride 10 mEq capsule,extended release 10 meq PO DAILY 11/09/21 [History Confirmed 04/15/22] rosuvastatin 5 mg tablet 5 mg PO DAILY 11/09/21 [History Confirmed 04/15/22] hydralazine 25 mg tablet 50 mg PO QDAY 03/18/22 [History Confirmed 04/15/22] artery cleanse PO 04/01/22 [History Confirmed 04/15/22] cholecalciferol (vitamin D3) 125 mcg (5,000 unit) capsule 125 mcg PO DAILY 04/01/22 [History Confirmed 04/15/22] cinnamon bark 500 mg capsule (Cinnamon) 500 mg PO DAILY 04/01/22 [History Confirmed 04/15/22] circu max gold PO 04/01/22 [History Confirmed 04/15/22] liver supplement PO 04/01/22 [History Confirmed 04/15/22] silver PO 04/01/22 [History Confirmed 04/15/22] Is last menstrual period known: No Post menopausal: Yes Patient : No PFSH Medical History (Updated 04/15/22 @ 13:37 by Norma Ribeiro) Bilateral carotid artery stenosis Bilateral extracranial carotid artery stenosis GERD (gastroesophageal reflux disease) HTN (hypertension) Hyperlipidemia Type 2 diabetes mellitus Surgical History (Updated 04/09/22 @ 15:39 by Norma Ribeiro) History of cataract extraction History of cholecystectomy History of hysterectomy History of right breast biopsy ( 03/2022) History of umbilical hernia repair Family History Brother Diabetes Heart disease Hypertension Lung cancer Mother Hypertension Brother Colon cancer 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 She presents with her son and [id number]. Today's appointment was a 30-minute [id number] consultative appointment regarding the finding of right breast cancer. The patient states that since her injection per Dr. Alamo her back is better but not completely resolved. She does have an upcoming appointment with him. 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 ANTIBODY / CLONE RESULT E-Cad (ECH-6) positive CK8 ([id number]) positive Calponin-1 (YM328N) negative CK5-6 (D5 1684) negative P40 (BC28) negative P53 (DO-7) positive, rare cells, weak Ki-67 (30-9) positive, low, 15% MORPHOMETRIC ANALYSIS ER (clone 6F11) >95%, strong intensity WI (clone 16/1E2) 52%, weak to moderate intensity Her-2Neu (clone CB11) 0 My previous notes reflect the following Visit Reasons:???R BREAST BIRADS 4 Chief Complaint: abn breast US --right Wardrobe Mistress Required: No Is patient in pain?: No Allergies morphine Adverse Reaction (Intermediate, Verified 04/09/22 15:29) mental status changemeperidine HCl [From Demerol] Adverse Reaction (Mild, Verified 04/09/22 15:29) mental status change Medications ascorbic acid (vitamin C) 500 mg tablet 500 mg PO DAILY@0800 supplement 07/29/14 [History Confirmed 04/09/22] latanoprost 0.005 % eye drops 1 drp EACH EYE QHS 07/29/14 [History Confirmed 04/09/22] omega-3 fatty acids-fish oil 300 mg-1,000 mg capsule 1 ea PO DAILY 07/29/14 [History Confirmed 04/09/22] nateglinide 60 mg tablet 60 mg PO TID 08/27/17 [History Confirmed 04/09/22] aspirin 81 mg chewable tablet 81 mg PO .qod 06/26/18 [History Confirmed 04/09/22] metoprolol succinate 50 mg tablet,extended release 24 hr 50 mg PO DAILY 06/26/18 [History Confirmed 04/09/22] Cardio [facility] Healthy PO DAILY 05/22/20 [History Confirmed 04/09/22] amlodipine 5 mg tablet 5 mg PO DAILY 11/09/21 [History Confirmed 04/09/22] furosemide 40 mg tablet 40 mg PO DAILY 11/09/21 [History Confirmed 04/09/22] lisinopril 20 mg tablet 20 mg PO BID 11/09/21 [History Confirmed 04/09/22] potassium chloride 10 mEq capsule,extended release 10 meq PO DAILY 11/09/21 [History Confirmed 04/09/22] rosuvastatin 5 mg tablet 5 mg PO DAILY 11/09/21 [History Confirmed 04/09/22] hydralazine 25 mg tablet 50 mg PO QDAY 03/18/22 [History Confirmed 04/09/22] artery cleanse PO 04/01/22 [History Confirmed 04/09/22] cholecalciferol (vitamin D3) 125 mcg (5,000 unit) capsule 125 mcg PO DAILY 04/01/22 [History Confirmed 04/09/22] cinnamon bark 500 mg capsule (Cinnamon) 500 mg PO DAILY 04/01/22 [History Confirmed 04/09/22] circu max gold PO 04/01/22 [History Confirmed 04/09/22] liver supplement PO 04/01/22 [History Confirmed 04/09/22] silver PO 04/01/22 [History Confirmed 04/09/22] Is last menstrual period known: No Post menopausal: Yes Patient : No PFSH Medical History???(Updated 04/09/22 @ 16:[address] Michael Michel MD) Bilateral carotid artery stenosis Bilateral extracranial carotid artery stenosis GERD (gastroesophageal reflux disease) HTN (hypertension) Hyperlipidemia Type 2 diabetes mellitus Surgical History???(Updated 04/09/22 @ 15:39 by Norma Ribeiro) History of cataract extraction History of cholecystectomy History of hysterectomy History of right breast biopsy ( 03/2022) History of umbilical hernia repair Family History??? Brother Diabetes Heart disease Hypertension Lung cancerMother HypertensionBrother Colon cancerBrother CancerBrother Sleep apnea Myocardial infarctionBrother Sleep apneaOther Arthritis Asthma Social History??? household members:??? 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 house Smoking Status:??? Never smoker alcohol intake:??? never substance use type:??? does not use what type of physical activity do you participate in:??? none seatbelt use:??? always do you feel safe at home:??? Yes HPI HPI HPI: 86-year-old female is being referred because of abnormal breast imaging.??? I saw this patient previously on March 18, 2022.??? Multiple concerns at that time. My impression On further review September 28, 2018 she had a chest CT without contrast.??? This showed small bilateral pleural effusions at that time and coronary calcification.??? 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 On her most recent CAT scan of the abdomen pelvis February 25 there appears to be a nodule in the right breast which is not commented upon.??? I did asked the patient regarding her most recent mammography and she stated not for an extended period of time because they are too painful for causing her almost to faint. I have described to her that her incarcerated ventral incisional hernias are at the umbilicus and infraumbilical and likely have omentum within.??? There is no evidence of bowel.??? She is completely asymptomatic at that location.??? Her body habitus would not lend well to it attempt at recurrent repair. Regarding the patient's right upper quadrant and flank discomfort I am more suspicious that this is musculoskeletal in etiology.??? Regarding the incidental right breast imaging not sure that this plays a role. I have recommended to the patient that we get thoracic spine x-rays looking for potential for acute compression fracture.??? I also recommended the patient bilateral breast mammography. She will consider her treatment options.??? At this point I am not detecting a general surgical etiology to her discomfort and will refer her back to Dr. Martina Lal.??? I do appreciate the kind opportunity of assisting with her surgical care Although recommended it is not clear to me that the patient will pursue the breast mammography.??? This has been recommended however. She did pursue breast mammography and breast ultrasonography. The images did demonstrate BI-RADS 4 a 2.5 x 1 cm slightly lobulated hypoechoic nodule 11 o'clock position right breast.??? Biopsy recommended. March 29, 2022 MAMMOGRAPHY - BILATERAL SCREENING REASON FOR EXAM:? Female, 86 years old.??? Routine annual screening examination. PERTINENT HISTORY:??? Non-contributory. TECHNIQUE: ??? Digital bilateral breast robinson (3D mammographic acquisition) in the CC and MLO projections. 2-D mediolateral oblique (MLO) and craniocaudad (CC) views of both breasts were obtained.??? CAD: Full Field Digital Mammography with Computer Added Detection was performed. COMPARISON: ??? No comparison mammograms available at this time.??? If any prior films become available, an addendum to this report can be generated. FINDINGS: Breast Composition:??? There are scattered areas of fibroglandular density. Asymmetrical density is seen in the deep upper lateral aspect of the right breast.??? This may represent asymmetrical glandular tissue although correlation with ultrasound is recommended. No other significant abnormalities are identified. BI/SCRN MAMM (CAD)W/ROBINSON BILAT IMPRESSION: Asymmetrical density in the upper deep outer aspect of the right breast as described.??? Correlation with ultrasound recommended. ? ASSESSMENT CATEGORY: BIRADS Category 0:??? Incomplete.??? Need additional imaging evaluation.??? A letter regarding these results will be sent to the patient by the facility within 30 days. ??? Approximately 10% of breast cancers are not detected by mammography.??? A normal mammogram should not delay biopsy of a clinically suspicious abnormality. ??? [id number] ??? Electronically Signed: Reid Hernandez MD at 14:15 EDT , March 29, 2022 STUDY: ??? ULTRASOUND BREAST - RIGHT REASON FOR EXAM: ??? Female, 86 years old.??? Abnormal screening mammogram. TECHNIQUE: ??? Axial and longitudinal images of the RIGHT breast were performed with a high resolution ultrasound transducer. # OF IMAGES:??? 16 COMPARISON: ??? Comparison is made with prior study dated 03/27/2022. FINDINGS: RIGHT Breast: This is a 2.5 cm x 1 cm slightly lobulated hypoechoic nodule at 11 o''clock position in the breast adjacent to the axilla.??? A biopsy is recommended. US/Breast Limited Unilateral IMPRESSION: 2.5 cm x 1 cm??? slightly lobulated hypoechoic nodule at 11 o''clock position of the breast adjacent to the axilla.??? Biopsy is recommended. ??? ASSESSMENT CATEGORY: BIRADS Category 4:??? Suspicious - Biopsy Should Be Considered.??? A letter regarding these results will be sent to the patient by the facility within 30 days. ??? Electronically Signed: Reid Hernandez MD at 9:45 EDT , ROS General General: No weight change, appetite, fatigue, colon cancer, breast cancer or weakness HEENT HEENT: No difficulty swallowing, eye injury, eye surgery, swollen glands or hoarseness Endo Endocrine: Yes diabetes mellitus; No thyroid disease, thyroid cancer, Hair loss, heat intolerance or cold intolerance Breast Breast: No left breast lump, right breast lump, nipple discharge, breast pain, abnormal mammogram, abnormal US or breast enlargement Musc Musculoskeletal: Yes back problems and arthritis; No rheumatoid arthritis, gout or joint pain Cardio Cardiovascular: Yes high blood pressure; No murmur, pacemaker, heart disease, atrial fibrillation, heart attack, heart stent, palpitations, shortness of breat with exertion or chest pain Psych Psychiatric: No depression, anxiety or hearing voices Resp Respiratory: No shortness of breath, No sleep apnea, Yes cough, No COPD, No asthma, No emphysema and No wheezing Gastro Gastrointestinal: Yes abdominal pain, No nausea or vomiting, No diarrhea, No constipation, No blood in stool, No acid reflux, No hemorrhoids, No ulcers, No gallbladder problem and No black,tarry stools Star Hematologic: No blood thinners, No blood disorders, No bleeding, No anemia and No blood clots Neuro Neurologic: No weakness Office Procedures Biopsy Provider Documentation Ultrasound-guided needle core biopsy lateral upper outer quadrant right breast mass Timeout informed consent was obtained.??? The patient was taken the procedure room initially placed in a modified left lateral decubitus position but it was evident that the lesion in question was rather far laterally placed.??? She was then placed in a full left sided position.??? Upper quadrant right breast prepped with Betadine.??? Under ultrasound guidance 1% lidocaine mixed 50-50 with 0.5% Marcaine was used as local anesthetic.??? 10 cc was used.??? A small stab incision was created.??? A 14-gauge Monopty needle was advanced to prefire depth.??? Pre and post fire films were obtained.??? 3 cores were obtained.??? A marking clip was left in position.??? She tolerated that well.??? Blood loss was minimal.??? I felt that I had adequate tissue.??? Specimens were immediately transferred to formalin for analysis.??? No apparent complication. Michael Michel M.D., F.A.C.S. Biopsy Breast Biopsy: [id number] US Guidance Procedure Time Out Time Out Informed consent given: Yes Consent signed: Yes Time out checklist: patient, procedure, site marked/identified, positioning of patient, supplies available, allergies confirmed and team agrees on procedure Time out staff in room: Yes Time out verified: Yes Time out date: 04/09/22 Time out time: 15:39 Assessment and Plan Assessment and Plan (1) Abnormal ultrasound of breast: ?Status:???Acute ?Plan: Abnormal upper quadrant right breast mammogram and ultrasound.??? Seemingly successful ultrasound- guided needle core biopsy.??? The patient's been given activity wound care instructions.??? She will be notified results of soon as they become available. It is of note that since the patient's previous visit where I suggested to her flank pain may be emanating from her back she did obtain injections with marked improvement in her discomfort.??? She remains surprised that this was likely source of her complaints ROS General General: No weight change, appetite, fatigue, colon cancer, breast cancer or weakness HEENT HEENT: No difficulty swallowing, eye injury, eye surgery, swollen glands or hoarseness Endo Endocrine: Yes diabetes mellitus; No thyroid disease, thyroid cancer, Hair loss, heat intolerance or cold intolerance Breast Breast: No left breast lump, right breast lump, nipple discharge, breast pain, abnormal mammogram, abnormal US or breast enlargement Musc Musculoskeletal: Yes back problems and arthritis; No rheumatoid arthritis, gout or joint pain Cardio Cardiovascular: Yes high blood pressure; No murmur, pacemaker, heart disease, atrial fibrillation, heart attack, heart stent, palpitations, shortness of breat with exertion or chest pain Psych Psychiatric: No depression, anxiety or hearing voices Resp Respiratory: No shortness of breath, No sleep apnea, Yes cough, No COPD, No asthma, No emphysema and No wheezing Gastro Gastrointestinal: Yes abdominal pain, No nausea or vomiting, No diarrhea, No constipation, No blood in stool, No acid reflux, No hemorrhoids, No ulcers, No gallbladder problem and No black,tarry stools Star Hematologic: No blood thinners, No blood disorders, No bleeding, No anemia and No blood clots Neuro Neurologic: No weakness Assessment and Plan Assessment and Plan (1) Breast cancer, right breast: Status: Acute Plan: I am recommending to the patient a nuclear tracer and blue dye right axillary sentinel lymph node biopsy with ultrasound-guided wire localization upper lateral right breast lumpectomy. In great detail I discussed the technique, benefit, risk, alternatives. No guarantees of success been offered. We have briefly discussed that frequently this treatment is combined with radiotherapy. I have instructed her that she is estrogen receptor positive and so likely it would be recommended to have hormonal therapy post procedure. Based upon her age and based upon pathologic findings she might be a candidate able to forego the radiation treatment. I have compared and contrasted this to a right mastectomy. I am not in favor of that much surgery for this patient at this time. With her ongoing back complaints I recommend to her a preoperative bone scan. She has had an opportunity to ask and have questions answered. She will discuss with her family members and notify me when convenient. We will tentatively look for potential operative date. I appreciate the ongoing opportunity of assisting with her surgical care. Copy: Dr. Martina Michel M.D., F.A.C.S. Coding Level of Care Code Off vis,est,level 3 Diagnoses Breast cancer, right breast C50.911 04/15/22 140 <Electronically signed by Michael Michel MD> Date Michael Michel MD Cosigner Signature: Date (if applicable) CC: Dr. Martina Lal, DO Martina Lal DO Work Phone: Start: 04-09-2022 End: 04-09-2022 Surgery Visit Report Procedure Note: See Note; NOTES: [facility] [address] [place] [address] OFFICE VISIT Date of Service: 04/09/22 MR#: [id number] Acct: [id number] Name: DEBBIE MIRELES Rep #: [id number] : 1935 Provider: Dr. Michael Chi Ceeh carlos MD Age/Sex: 86/F Location: [facility] Status: Signed Intake Vital Signs 04/09/22 15:37 Height 5 ft 1 in Weight: 233 lb 5 oz BMI 44.1 BP 211/62 H Blood Pressure Location Lt brachial Position Sitting Respiration 22 H Pulse 72 Pulse Source NIBP Temp 98.1 F Temp Source Temporal Pulse Oximetry (%) 94 Oxygen Delivery Method room air Intake Visit Reasons: R BREAST BIRADS 4 Chief Complaint: abn breast US --right Wardrobe Mistress Required: No Is patient in pain?: No Allergies morphine Adverse Reaction (Intermediate, Verified 04/09/22 15:29) mental status change meperidine HCl [From Demerol] Adverse Reaction (Mild, Verified 04/09/22 15:29) mental status change Medications ascorbic acid (vitamin C) 500 mg tablet 500 mg PO DAILY@0800 supplement 07/29/14 [History Confirmed 04/09/22] latanoprost 0.005 % eye drops 1 drp EACH EYE QHS 07/29/14 [History Confirmed 04/09/22] omega-3 fatty acids-fish oil 300 mg-1,000 mg capsule 1 ea PO DAILY 07/29/14 [History Confirmed 04/09/22] nateglinide 60 mg tablet 60 mg PO TID 08/27/17 [History Confirmed 04/09/22] aspirin 81 mg chewable tablet 81 mg PO .qod 06/26/18 [History Confirmed 04/09/22] metoprolol succinate 50 mg tablet,extended release 24 hr 50 mg PO DAILY 06/26/18 [History Confirmed 04/09/22] Cardio [place] Healthy PO DAILY 05/22/20 [History Confirmed 04/09/22] amlodipine 5 mg tablet 5 mg PO DAILY 11/09/21 [History Confirmed 04/09/22] furosemide 40 mg tablet 40 mg PO DAILY 11/09/21 [History Confirmed 04/09/22] lisinopril 20 mg tablet 20 mg PO BID 11/09/21 [History Confirmed 04/09/22] potassium chloride 10 mEq capsule,extended release 10 meq PO DAILY 11/09/21 [History Confirmed 04/09/22] rosuvastatin 5 mg tablet 5 mg PO DAILY 11/09/21 [History Confirmed 04/09/22] hydralazine 25 mg tablet 50 mg PO QDAY 03/18/22 [History Confirmed 04/09/22] artery cleanse PO 04/01/22 [History Confirmed 04/09/22] cholecalciferol (vitamin D3) 125 mcg (5,000 unit) capsule 125 mcg PO DAILY 04/01/22 [History Confirmed 04/09/22] cinnamon bark 500 mg capsule (Cinnamon) 500 mg PO DAILY 04/01/22 [History Confirmed 04/09/22] circu max gold PO 04/01/22 [History Confirmed 04/09/22] liver supplement PO 04/01/22 [History Confirmed 04/09/22] silver PO 04/01/22 [History Confirmed 04/09/22] Is last menstrual period known: No Post menopausal: Yes Patient : No PFSH Medical History (Updated 04/09/22 @ 16:[address] Michael Michel MD) Bilateral carotid artery stenosis Bilateral extracranial carotid artery stenosis GERD (gastroesophageal reflux disease) HTN (hypertension) Hyperlipidemia Type 2 diabetes mellitus Surgical History (Updated 04/09/22 @ 15:39 by Norma Ribeiro) History of cataract extraction History of cholecystectomy History of hysterectomy History of right breast biopsy ( 03/2022) History of umbilical hernia repair Family History Brother Diabetes Heart disease Hypertension Lung cancer Mother Hypertension Brother Colon cancer 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 I saw this patient previously on March 18, 2022. Multiple concerns at that time. My impression On further review September 28, 2018 she had a chest CT without contrast.??? This showed small bilateral pleural effusions at that time and coronary calcification.??? 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 On her most recent CAT scan of the abdomen pelvis February 25 there appears to be a nodule in the right breast which is not commented upon.??? I did asked the patient regarding her most recent mammography and she stated not for an extended period of time because they are too painful for causing her almost to faint. I have described to her that her incarcerated ventral incisional hernias are at the umbilicus and infraumbilical and likely have omentum within.??? There is no evidence of bowel.??? She is completely asymptomatic at that location.??? Her body habitus would not lend well to it attempt at recurrent repair. Regarding the patient's right upper quadrant and flank discomfort I am more suspicious that this is musculoskeletal in etiology.??? Regarding the incidental right breast imaging not sure that this plays a role. I have recommended to the patient that we get thoracic spine x-rays looking for potential for acute compression fracture.??? I also recommended the patient bilateral breast mammography. She will consider her treatment options.??? At this point I am not detecting a general surgical etiology to her discomfort and will refer her back to Dr. Martina Lal.??? I do appreciate the kind opportunity of assisting with her surgical care Although recommended it is not clear to me that the patient will pursue the breast mammography.??? This has been recommended however. She did pursue breast mammography and breast ultrasonography. The images did demonstrate BI-RADS 4 a 2.5 x 1 cm slightly lobulated hypoechoic nodule 11 o'clock position right breast. Biopsy recommended. March 29, 2022 MAMMOGRAPHY - BILATERAL SCREENING REASON FOR EXAM:? Female, 86 years old.??? Routine annual screening examination. PERTINENT HISTORY:??? Non-contributory. TECHNIQUE: ??? Digital bilateral breast robinson (3D mammographic acquisition) in the CC and MLO projections. 2-D mediolateral oblique (MLO) and craniocaudad (CC) views of both breasts were obtained.??? CAD: Full Field Digital Mammography with Computer Added Detection was performed. COMPARISON: ??? No comparison mammograms available at this time.??? If any prior films become available, an addendum to this report can be generated. FINDINGS: Breast Composition:??? There are scattered areas of fibroglandular density. Asymmetrical density is seen in the deep upper lateral aspect of the right breast.??? This may represent asymmetrical glandular tissue although correlation with ultrasound is recommended. No other significant abnormalities are identified. BI/SCRN MAMM (CAD)W/ROBINSON BILAT IMPRESSION: Asymmetrical density in the upper deep outer aspect of the right breast as described.??? Correlation with ultrasound recommended. ? ASSESSMENT CATEGORY: BIRADS Category 0:??? Incomplete.??? Need additional imaging evaluation.??? A letter regarding these results will be sent to the patient by the facility within 30 days. ??? Approximately 10% of breast cancers are not detected by mammography.??? A normal mammogram should not delay biopsy of a clinically suspicious abnormality. ??? [id number] ??? Electronically Signed: Reid Hernandez MD at 14:15 EDT , March 29, 2022 STUDY: ??? ULTRASOUND BREAST - RIGHT REASON FOR EXAM: ??? Female, 86 years old.??? Abnormal screening mammogram. TECHNIQUE: ??? Axial and longitudinal images of the RIGHT breast were performed with a high resolution ultrasound transducer. # OF IMAGES:??? 16 COMPARISON: ??? Comparison is made with prior study dated 03/27/2022. FINDINGS: RIGHT Breast: This is a 2.5 cm x 1 cm slightly lobulated hypoechoic nodule at 11 o''clock position in the breast adjacent to the axilla.??? A biopsy is recommended. US/Breast Limited Unilateral IMPRESSION: 2.5 cm x 1 cm??? slightly lobulated hypoechoic nodule at 11 o''clock position of the breast adjacent to the axilla.??? Biopsy is recommended. ??? ASSESSMENT CATEGORY: BIRADS Category 4:??? Suspicious - Biopsy Should Be Considered.??? A letter regarding these results will be sent to the patient by the facility within 30 days. ??? Electronically Signed: Reid Hernandez MD at 9:45 EDT , ROS General General: No weight change, appetite, fatigue, colon cancer, breast cancer or weakness HEENT HEENT: No difficulty swallowing, eye injury, eye surgery, swollen glands or hoarseness Endo Endocrine: Yes diabetes mellitus; No thyroid disease, thyroid cancer, Hair loss, heat intolerance or cold intolerance Breast Breast: No left breast lump, right breast lump, nipple discharge, breast pain, abnormal mammogram, abnormal US or breast enlargement Musc Musculoskeletal: Yes back problems and arthritis; No rheumatoid arthritis, gout or joint pain Cardio Cardiovascular: Yes high blood pressure; No murmur, pacemaker, heart disease, atrial fibrillation, heart attack, heart stent, palpitations, shortness of breat with exertion or chest pain Psych Psychiatric: No depression, anxiety or hearing voices Resp Respiratory: No shortness of breath, No sleep apnea, Yes cough, No COPD, No asthma, No emphysema and No wheezing Gastro Gastrointestinal: Yes abdominal pain, No nausea or vomiting, No diarrhea, No constipation, No blood in stool, No acid reflux, No hemorrhoids, No ulcers, No gallbladder problem and No black,tarry stools Star Hematologic: No blood thinners, No blood disorders, No bleeding, No anemia and No blood clots Neuro Neurologic: No weakness Office Procedures Biopsy Provider Documentation Ultrasound-guided needle core biopsy lateral upper outer quadrant right breast mass Timeout informed consent was obtained. The patient was taken the procedure room initially placed in a modified left lateral decubitus position but it was evident that the lesion in question was rather far laterally placed. She was then placed in a full left sided position. Upper quadrant right breast prepped with Betadine. Under ultrasound guidance 1% lidocaine mixed 50-50 with 0.5% Marcaine was used as local anesthetic. 10 cc was used. A small stab incision was created. A 14-gauge Monopty needle was advanced to prefire depth. Pre and post fire films were obtained. 3 cores were obtained. A marking clip was left in position. She tolerated that well. Blood loss was minimal. I felt that I had adequate tissue. Specimens were immediately transferred to formalin for analysis. No apparent complication. Michael Michel M.D., F.A.C.S. Biopsy Breast Biopsy: [id number] US Guidance Procedure Time Out Time Out Informed consent given: Yes Consent signed: Yes Time out checklist: patient, procedure, site marked/identified, positioning of patient, supplies available, allergies confirmed and team agrees on procedure Time out staff in room: Yes Time out verified: Yes Time out date: 04/09/22 Time out time: 15:39 Assessment and Plan Assessment and Plan (1) Abnormal ultrasound of breast: Status: Acute Plan: Abnormal upper quadrant right breast mammogram and ultrasound. Seemingly successful ultrasound- guided needle core biopsy. The patient's been given activity wound care instructions. She will be notified results of soon as they become available. It is of note that since the patient's previous visit where I suggested to her flank pain may be emanating from her back she did obtain injections with marked improvement in her discomfort. She remains surprised that this was likely source of her complaints. Copy: Dr. Martina Michel M.D., F.A.C.S. Coding Level of Care Code Attention Elvin Diagnoses Abnormal ultrasound of breast R92.8 CPT Codes Biopsy - Breast Biopsy: 15129 US Guidance ([id number]) 04/09/22 1610 <Electronically signed by Michael Michel MD> Date Michael Michel MD Cosigner Signature: Date (if applicable) CC: DO Martina Swan DO Work Phone: Start: 03-29-2022 End: 04-01-2022 Breast Limited Unilateral Procedure Note: See Note; NOTES: [facility] [address] [place] [id number] Breast Limited Unilateral MR#: [id number] Acct: [id number] Name: DEBBIE MIRELES Rep #: [id number] : 1935 F 86 From: Reid corea MD PCP: Dr. Martina Lal DO Status: REG CLI Study: Breast Limited Unilateral Date of Exam: Exam# [id number] Ordering Dr: Michael Michel MD STUDY: ULTRASOUND BREAST - RIGHT REASON FOR EXAM: Female, 86 years old. Abnormal screening mammogram. TECHNIQUE: Axial and longitudinal images of the RIGHT breast were performed with a high resolution ultrasound transducer. # OF IMAGES: 16 COMPARISON: Comparison is made with prior study dated 03/27/2022. FINDINGS: RIGHT Breast: This is a 2.5 cm x 1 cm slightly lobulated hypoechoic nodule at 11 o''clock position in the breast adjacent to the axilla. A biopsy is recommended. US/Breast Limited Unilateral IMPRESSION: 2.5 cm x 1 cm slightly lobulated hypoechoic nodule at 11 o''clock position of the breast adjacent to the axilla. Biopsy is recommended. ASSESSMENT CATEGORY: BIRADS Category 4: Suspicious - Biopsy Should Be Considered. A letter regarding these results will be sent to the patient by the facility within 30 days. Electronically Signed: Reid Hernandez MD at 9:45 EDT , CC: Dr. Martina Lal DO; Dr. Michael Michel MD Assistant Project Manager: Signed Michael Michel MD Work Phone: Start: 03-29-[address] Martina Lal Work Phone: Start: 03-27-[address] Martina Lal Work Phone: Start: 03-27-2022 End: 03-27-2022 SCRN MAMM (CAD)W/ROBINSON BILAT Procedure Note: See Note; NOTES: [facility] [address] [place] [address] SCRN MAMM (CAD)W/ROBINSON BILAT MR#: [id number] Acct: [id number] Name: DEBBIE MIRELES Rep #: [id number] : 1935 F 86 From: Reid corea MD PCP: Dr. Martina Lal DO Status: REG CLI Study: SCRN MAMM (CAD)W/ROBINSON BILAT Date of Exam: 02/08 Exam# [id number] Ordering Dr: Michael Michel MD MAMMOGRAPHY - BILATERAL SCREENING REASON FOR EXAM: Female, 86 years old. Routine annual screening examination. PERTINENT HISTORY: Non-contributory. TECHNIQUE: Digital bilateral breast robinson (3D mammographic acquisition) in the CC and MLO projections. 2-D mediolateral oblique (MLO) and craniocaudad (CC) views of both breasts were obtained. CAD: Full Field Digital Mammography with Computer Added Detection was performed. COMPARISON: No comparison mammograms available at this time. If any prior films become available, an addendum to this report can be generated. FINDINGS: Breast Composition: There are scattered areas of fibroglandular density. Asymmetrical density is seen in the deep upper lateral aspect of the right breast. This may represent asymmetrical glandular tissue although correlation with ultrasound is recommended. No other significant abnormalities are identified. BI/SCRN MAMM (CAD)W/ROBINSON BILAT IMPRESSION: Asymmetrical density in the upper deep outer aspect of the right breast as described. Correlation with ultrasound recommended. ASSESSMENT CATEGORY: BIRADS Category 0: Incomplete. Need additional imaging evaluation. A letter regarding these results will be sent to the patient by the facility within 30 days. Approximately 10% of breast cancers are not detected by mammography. A normal mammogram should not delay biopsy of a clinically suspicious abnormality. [id number] Electronically Signed: Reid Hernandez MD at 14:15 EDT , CC: Dr. Martina Lal, DO; Dr. Michael Michel MD Assistant Project Manager: Signed Michael Michel MD Work Phone: Start: 03-18-2022 Radiography of thoracic spine Dr. Martina Lal Work Phone: Start: 03-18-2022 End: 03-18-2022 Thoracic Spine 3 Views Procedure Note: See Note; NOTES: [facility] [address] [place] [address] Thoracic Spine 3 Views MR#: [id number] Acct: [id number] Name: DEBBIE MIRELES Rep #: [id number] : 1935 F 86 From: Peyman Chi PCP: Dr. Martina Lal DO Status: REG CLI Study: Thoracic Spine 3 Views Date of Exam: 03/18/22 Exam# [id number] Ordering Dr: Michael Michel MD STUDY: X-RAY - THORACIC SPINE REASON FOR EXAM: Female, 86 years old. back pain TECHNIQUE: XR Spine Thoracic 3 Views COMPARISON: None FINDINGS: Normal kyphosis of the thoracic spine. There is no substantial scoliosis. There is demineralization of the thoracic spine with endplate spondylosis. There is multilevel disc space narrowing of the thoracic spine. The soft tissue structures are unremarkable. RAD/Thoracic Spine 3 Views IMPRESSION: There are degenerative changes as noted above. Electronically Signed: Peyman Azul MD at 17:45 EDT Reading Location ID and State: [facility] / [place] , Service support , CC: Dr. Martina Lal DO; Dr. Michael Michel MD Assistant Project Manager: Signed Michael Michel MD Work Phone: Start: 03-18-2022 End: 03-18-2022 Surgery Visit Report Procedure Note: See Note; NOTES: [facility] [address] [place] [address] OFFICE VISIT Date of Service: 03/18/22 MR#: [id number] Acct: [id number] Name: DEBBIE MIRELES Rep #: [id number] : 1935 Provider: Dr. Michael carlos MD Age/Sex: 86/F Location: [facility] Status: Signed Intake Vital Signs 03/18/22 10:22 Height 5 ft 1 in Weight: 233 lb 2 oz BMI 44.0 BP 182/59 H Blood Pressure Location Rt brachial Position Sitting Respiration 18 Pulse 61 Pulse Source NIBP Temp 98 F Temp Source Temporal Pulse Oximetry (%) 95 Oxygen Delivery Method room air Intake Visit Reasons: VENTRAL HERNIA Chief Complaint: abd pain/ ventral hernia Wardrobe Mistress Required: No Is patient in pain?: Yes (right upper abd pain ) Pain scale (1-10): 8 Allergies morphine Adverse Reaction (Intermediate, Verified 03/18/22 10:23) mental status change meperidine HCl [From Demerol] Adverse Reaction (Mild, Verified 03/18/22 10:23) mental status change Medications ascorbic acid (vitamin C) 500 mg tablet 500 mg PO DAILY@0800 supplement 07/29/14 [History Confirmed 03/18/22] latanoprost 0.005 % eye drops 1 drp EACH EYE QHS 07/29/14 [History Confirmed 03/18/22] omega-3 fatty acids-fish oil 300 mg-1,000 mg capsule 1 ea PO DAILY 07/29/14 [History Confirmed 03/18/22] nateglinide 60 mg tablet 60 mg PO TID 08/27/17 [History Confirmed 03/18/22] aspirin 81 mg chewable tablet 81 mg PO .qod 06/26/18 [History Confirmed 03/18/22] metoprolol succinate 50 mg tablet,extended release 24 hr 50 mg PO DAILY 06/26/18 [History Confirmed 03/18/22] Cardio [facility] Healthy PO DAILY 05/22/20 [History Confirmed 03/18/22] amlodipine 5 mg tablet 5 mg PO DAILY 11/09/21 [History Confirmed 03/18/22] furosemide 40 mg tablet 40 mg PO DAILY 11/09/21 [History Confirmed 03/18/22] lisinopril 20 mg tablet 20 mg PO BID 11/09/21 [History Confirmed 03/18/22] potassium chloride 10 mEq capsule,extended release 10 meq PO DAILY 11/09/21 [History Confirmed 03/18/22] rosuvastatin 5 mg tablet 5 mg PO DAILY 11/09/21 [History Confirmed 03/18/22] hydralazine 25 mg tablet 50 mg PO QDAY 03/18/22 [History Confirmed 03/18/22] Is last menstrual period known: No Post menopausal: Yes Patient : No PFSH Medical History (Updated 03/18/22 @ 10:[address] 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 The patient is referred by Dr. Martina Lal and a written copy of my surgical consult recommendations will be returned to her. The patient is complaining of at least a 5-month history of a pulling and nagging in the mid abdomen with every step she takes. On clinical examination she was noted to be very tender to even several perifacial palpation on the right. The patient had a CT of the abdomen pelvis on February 25, 2022 was noted below. She has evidence of a previous ventral hernia repair based upon the umbilicus and has at least 2 separate recurrent defects. There appears to be involved omentum. There does not appear to be any bowel involvement. The patient states for at least 5 months she has had pain on the right side and she points to the right flank or lateral chest right upper quadrant area and a hand with pattern extending from her back forward. She states that it is worse with attempting to walk. It is a dull pain. She cannot find a restful position sitting. She notes that she has had shingles before for her face and that this pain is significantly different from that. She has not had any blistering or rash in this location. She has had previous history of lumbar spine investigation and lumbar degenerative disease. She denies any bowel habit change. No bright red blood per rectum or melena. Her most recent colon screening checks have been with stool cards which have been negative. She states that she did have a remote colonoscopy and that demonstrated a tubular adenoma. The patient presents convinced that her pain is due to her diagnosed hernia. However she is pointing to the right flank right lateral chest extending down into the right upper quadrant area. Her recurrent incarcerated incisional hernia is at the umbilical level and inferior to that. She has absolutely no complaints of that area and seemed very surprised that that was the location of her hernias. She denies any particular burning with urination or any hematuria February 25, 2022 STUDY:??? CT ABDOMEN AND PELVIS WITH CONTRAST REASON FOR EXAM: ??? Female, 86 years old.??? Right lower quadrant abdominal pain. RADIATION DOSAGE (If Supplied By Facility):??? CTDIvol = ( 20.31 ) mGy, DLP = ( 1346.20 ) mGycm TECHNIQUE: ??? Transaxial images were obtained from the dome of the diaphragm to the symphysis pubis with oral contrast.??? 100 mL of ISOVUE 370 was administered.??? Sagittal and coronal images were reconstructed. Individualized dose optimization techniques were used for this CT. COMPARISON: ??? None. FINDINGS: The visualized lung bases are unremarkable.??? The visualized portions of the heart are within normal limits. Normal liver.??? There are surgical clips in the gallbladder fossa consistent with a prior cholecystectomy.??? Normal spleen.??? Normal pancreas. Normal right adrenal.??? There is 2.64 x 2.0 x 2.1 cm enhancing mass in the left adrenal gland. There is a 1.7 cm cyst in the upper pole of the right kidney other smaller cysts are also noted.??? No renal calculi or mass.??? No hydronephrosis. Normal right ureter. The left kidney is atrophic with cortical thinning.??? There is no mass or cyst.??? No renal calculi or hydronephrosis.??? Normal left ureter Small hiatal hernia.??? The stomach is otherwise unremarkable.??? Normal small intestine.??? Colonic diverticulosis most marked in the sigmoid.??? No mass or obstruction.??? There is non-visualization of the appendix. There is diffuse atherosclerotic calcification of the abdominal aorta, without a demonstrated aneurysm.??? Normal inferior vena cava.??? Normal retroperitoneum. Normal urinary bladder.??? Unremarkable vaginal cuff.??? There is no pelvic lymphadenopathy.??? No free air or free fluid is seen within the peritoneal cavity. There is an umbilical hernia of omental fat.??? There is a subumbilical midline hernia of omental fat with focal calcifications.??? There are surgical clips in this region suggesting prior herniorrhaphy.??? Minimal stranding in the fat.??? There are diffuse degenerative changes of the visualized lumbar spine. CT/Abdomen/Pelvis WITH Contrast IMPRESSION: 1.??? Nonvisualization the appendix.??? There is no right lower quadrant inflammatory change. 2.??? Ventral hernias. 3.??? Hiatal hernia. 4.??? Colonic diverticulosis without acute inflammatory change. 5.??? Left adrenal enhancing mass.??? This does not have the appearance of an adenoma.??? Follow-up required. 6.??? 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 7.??? Multiple right renal cysts.??? These require no further follow-up. ??? Electronically Signed: Felix Keyes DO at 22:52 EDT Reading Location ID and State: [address] [place] [address] Tel [phone], Service support??? , ROS General General: No weight change, appetite, fatigue, colon cancer, breast cancer or weakness HEENT HEENT: No difficulty swallowing, eye injury, eye surgery, swollen glands or hoarseness Endo Endocrine: Yes diabetes mellitus; No thyroid disease, thyroid cancer, Hair loss, heat intolerance or cold intolerance Breast Breast: No left breast lump, right breast lump, nipple discharge, breast pain, abnormal mammogram, abnormal US or breast enlargement Musc Musculoskeletal: Yes back problems and arthritis; No rheumatoid arthritis, gout or joint pain Cardio Cardiovascular: Yes high blood pressure; No murmur, pacemaker, heart disease, atrial fibrillation, heart attack, heart stent, palpitations, shortness of breat with exertion or chest pain Psych Psychiatric: No depression, anxiety or hearing voices Resp Respiratory: No shortness of breath, No sleep apnea, Yes cough, No COPD, No asthma, No emphysema and No wheezing Gastro Gastrointestinal: Yes abdominal pain, No nausea or vomiting, No diarrhea, No constipation, No blood in stool, No acid reflux, No hemorrhoids, No ulcers, No gallbladder problem and No black,tarry stools Star Hematologic: No blood thinners, No blood disorders, No bleeding, No anemia and No blood clots Neuro Neurologic: No weakness Exam Const General: cooperative, comfortable and no acute distress Nutritional Appearance: obese morbidly obese [facility] Head: normal to inspection Chest Other: Chest seems symmetric. I am not detecting any thoracic discomfort to palpation, she has tenderness on the right lateral lower chest area particularly extending down across the right lateral chest into the right upper quadrant of the abdomen where she complains of pain to even gentle palpation. No rash identified. Resp Auscultation: clear to auscultation bilaterally Other: Diminished respiratory excursion Cardio Rate: regular rate Rhythm: regular rhythm GI Other: I can palpateNotably overweight, indistinctly fibrofatty tissue with umbilical area and slightly inferior but the patient does have a large overhanging abdominal pannus. Absolutely nontender in this location. She is focally tender to palpation in the right upper quadrant although without mass or rebound or guarding. Bowel sounds are present and unremarkable Skin General: no rashes or lesions noted Neuro General: patient alert, patient awake and patient oriented x3 Extrem Other: Chronic 2+ bilateral extremity swelling Psych Appearance: grossly normal Assessment and Plan Assessment and Plan (1) Recurrent incisional hernia with incarceration: Status: Acute Plan: Copy: Dr. Martina Michel M.D., F.A.C.S. (2) Right flank pain: Status: Acute Orders: Orders SCRN MAMM (CAD)W/ROBINSON BILAT Today Z12.39 - Encounter for other screening for malignant neoplasm of breast Thoracic Spine Min 4 Views Today M54.9 - Dorsalgia, unspecified, R10.9 - Unspecified abdominal pain Plan On further review September 28, 2018 she had a chest CT without contrast. This showed small bilateral pleural effusions at that time and coronary calcification. 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 On her most recent CAT scan of the abdomen pelvis February 25 there appears to be a nodule in the right breast which is not commented upon. I did asked the patient regarding her most recent mammography and she stated not for an extended period of time because they are too painful for causing her almost to faint. I have described to her that her incarcerated ventral incisional hernias are at the umbilicus and infraumbilical and likely have omentum within. There is no evidence of bowel. She is completely asymptomatic at that location. Her body habitus would not lend well to it attempt at recurrent repair. Regarding the patient's right upper quadrant and flank discomfort I am more suspicious that this is musculoskeletal in etiology. Regarding the incidental right breast imaging not sure that this plays a role. I have recommended to the patient that we get thoracic spine x-rays looking for potential for acute compression fracture. I also recommended the patient bilateral breast mammography. She will consider her treatment options. At this point I am not detecting a general surgical etiology to her discomfort and will refer her back to Dr. Martina Lal. I do appreciate the kind opportunity of assisting with her surgical care Although recommended it is not clear to me that the patient will pursue the breast mammography. This has been recommended however. Copy: Dr. Martina Michel M.D., F.A.C.S. Coding Level of Care Code 55047 Diagnoses Recurrent incisional hernia with incarceration K43.0 Right flank pain R10.9 03/18/22 1046 <Electronically signed by Michael Michel MD> Date Michael Michel MD Cosigner Signature: Date (if applicable) CC: DO Martina Swan DO Work Phone: Start: 02-25-2022 End: 02-25-2022 Abdomen/Pelvis WITH Contrast Comments: See Note; NOTES: [facility] [address] [place] [address] Abdomen/Pelvis WITH Contrast MR#: [id number] Acct: [id number] Name: DEBBIE MIRELES Rep #: [id number] : 1935 F 86 From: Felix Keyes DO PCP: Dr. Martina Lal DO Status: REG CLI Study: Abdomen/Pelvis WITH Contrast Date of Exam: 03/11 Exam# [id number] Ordering Dr: Martina Lal DO STUDY: CT ABDOMEN AND PELVIS WITH CONTRAST REASON FOR EXAM: Female, 86 years old. Right lower quadrant abdominal pain. RADIATION DOSAGE (If Supplied By Facility): CTDIvol = ( 20.31 ) mGy, DLP = ( 1346.20 ) mGycm TECHNIQUE: Transaxial images were obtained from the dome of the diaphragm to the symphysis pubis with oral contrast. 100 mL of ISOVUE 370 was administered. Sagittal and coronal images were reconstructed. Individualized dose optimization techniques were used for this CT. COMPARISON: None. FINDINGS: The visualized lung bases are unremarkable. The visualized portions of the heart are within normal limits. Normal liver. There are surgical clips in the gallbladder fossa consistent with a prior cholecystectomy. Normal spleen. Normal pancreas. Normal right adrenal. There is 2.64 x 2.0 x 2.1 cm enhancing mass in the left adrenal gland. There is a 1.7 cm cyst in the upper pole of the right kidney other smaller cysts are also noted. No renal calculi or mass. No hydronephrosis. Normal right ureter. The left kidney is atrophic with cortical thinning. There is no mass or cyst. No renal calculi or hydronephrosis. Normal left ureter Small hiatal hernia. The stomach is otherwise unremarkable. Normal small intestine. Colonic diverticulosis most marked in the sigmoid. No mass or obstruction. There is non-visualization of the appendix. There is diffuse atherosclerotic calcification of the abdominal aorta, without a demonstrated aneurysm. Normal inferior vena cava. Normal retroperitoneum. Normal urinary bladder. Unremarkable vaginal cuff. There is no pelvic lymphadenopathy. No free air or free fluid is seen within the peritoneal cavity. There is an umbilical hernia of omental fat. There is a subumbilical midline hernia of omental fat with focal calcifications. There are surgical clips in this region suggesting prior herniorrhaphy. Minimal stranding in the fat. There are diffuse degenerative changes of the visualized lumbar spine. CT/Abdomen/Pelvis WITH Contrast IMPRESSION: 1. Nonvisualization the appendix. There is no right lower quadrant inflammatory change. 2. Ventral hernias. 3. Hiatal hernia. 4. Colonic diverticulosis without acute inflammatory change. 5. Left adrenal enhancing mass. This does not have the appearance of an adenoma. Follow-up required. 6. 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 7. Multiple right renal cysts. These require no further follow-up. Electronically Signed: Felix Keyes DO at 22:52 EDT Reading Location ID and State: [address] [place] [address] Tel [phone], Service support , CC: Dr. Martina Lal DO Assistant Project Manager: Signed Martina Lal DO Work Phone: Start: 02-25-2022 Computed tomography of abdomen and pelvis with contrast Dr. Martina Lal Work Phone: Start: 11-09-2021 End: 11-09-2021 Pulmonary Visit Report Comments: See Note; NOTES: [facility] [address] [place] [address] OFFICE VISIT Date of Service: 11/09/21 MR#: [id number] Acct: [id number] Name: DEBBIE MIRELES Rep #: [id number] : 1935 Provider: ERIKA Mcdaniels Age/Sex: 86/F Location: [facility] Status: Signed Assessment and Plan Assessment and Plan (1) ABDI (obstructive sleep apnea): Status: Acute Plan - Zelda Mcdaniels 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, 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-C: New. Lengthy discussion about the pathophysiology of obstructive sleep apnea. We discussed the risks of untreated sleep apnea as well as the benefits. The patient is somewhat precontemplative with regard to starting therapy. She has agreed to give it a try. We will start the patient on an AutoPap at 5 to 15 cm of water. Initial goal will be to wear PAP at least 4 hours nightly. Ultimately, it should be worn any time spent sleeping. I have encouraged the patient to call the office with any difficulties acclimating to PAP therapy. Follow up in the office in 3 months, at which time I anticipate the patient will be on PAP therapy for 4-6 weeks. I have spent 45 minutes today reviewing labs, records and history. Time includes coordinating care. This also includes time I spent with the patient for exam, treatment plan and education as well as documenting clinical information. (2) BMI 40.0-44.9, adult: Status: Acute Plan - Zelda Mcdaniels 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, 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-C: We discussed the relationship between obesity and obstructively apnea. Encourage weight loss. Plan Details Follow Up: 3 Months (BWA) HPI Sleep concern Chief Complaint: Review test results HPI Comments Details: This patient presents to the office today for initial consultation regarding concern for obstructive sleep apnea. She is ambulatory and currently on room air. The patient states that her children have always told her that she snores. She currently lives alone. She admits that most mornings when she wakes up she is not feeling rested. She also reports that she nods off when sitting still, especially when reading. She has 2-4 episodes of nocturia each night. She is dealing with some difficulty with dry mouth and was unsure if it was related to a medication or something else. 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 She has never seen a habilitation specialist. She has never been prescribed an inhaler. She is a lifelong never smoker. Past medical family history is significant for: Mother had very good health and lived to the age of 102. Dad had some health problems. She has 3 brothers that of different types of cancer which included lung, colon and pancreas. She had a brother who had heart attack and another brother who had his appendix burst. Total of 5 brothers. She has 3 children, 2 sons and 1 daughter. Her youngest son has had some heart problems and had stents placed. Otherwise children are good health. She does have some shortness of breath on exertion. She denies any cough, sputum production or hemoptysis. She denies any wheezing, chest tightness, chest pain or palpitations. She also denies any fever, chills or body aches. Test results personally reviewed with the patient: Unattended sleep study completed on October 23, 2021. RDI noted to be 18.5 events per hour. Diagnosis is obstructive sleep apnea. Recommendation is to consider an in lab titration study or trial of AutoPap. Intake Vital Signs 11/09/21 10:12 Height 5 ft 1 in Weight: 237 lb BMI 44.7 BP 177/69 H Blood Pressure Location Lt brachial Position Sitting Respiration 17 Pulse 54 L Pulse Source Monitor Temp 97.4 F L Temperature Source Temporal Artery Pulse Oximetry (%) 95 Oxygen Delivery Method nasal canula Intake Visit Reasons: Sleep problems Wardrobe Mistress Required: No Accompanied by: Self Is patient in pain?: No Allergies morphine Adverse Reaction (Intermediate, Verified 11/09/21 10:14) mental status change meperidine HCl [From Demerol] Adverse Reaction (Mild, Verified 11/09/21 10:14) mental status change Medications ascorbic acid (vitamin C) 500 mg PO DAILY@0800 07/29/14 [History Confirmed 11/09/21] calcium carbonate-vitamin D3 1 tab PO DAILY@0800 07/29/14 [History Confirmed 11/09/21] latanoprost 1 drp EACH EYE QHS 07/29/14 [History Confirmed 11/09/21] omega-3 fatty acids-fish oil 1 ea PO DAILY 07/29/14 [History Confirmed 11/09/21] nateglinide 60 mg PO TID 08/27/17 [History Confirmed 11/09/21] aspirin 81 mg chewable tablet 81 mg PO .qod tab 06/26/18 [History Confirmed 11/09/21] metoprolol succinate 50 mg tablet,extended release 24 hr 50 mg PO DAILY 06/26/18 [History Confirmed 11/09/21] Artery Cleanse PO QDAY 05/22/20 [History Confirmed 11/09/21] Cardio [facility] Healthy PO DAILY 05/22/20 [History Confirmed 11/09/21] amlodipine 5 mg tablet 5 mg PO DAILY tab 11/09/21 [History Confirmed 11/09/21] furosemide 40 mg tablet 40 mg PO DAILY tab 11/09/21 [History Confirmed 11/09/21] hydralazine 25 mg tablet 25 mg PO BID tab 11/09/21 [History Confirmed 11/09/21] lisinopril 20 mg tablet 20 mg PO BID tab 11/09/21 [History Confirmed 11/09/21] potassium chloride 10 mEq capsule,extended release 10 meq PO DAILY cap 11/09/21 [History Confirmed 11/09/21] rosuvastatin 5 mg tablet 5 mg PO DAILY tab 11/09/21 [History Confirmed 11/09/21] [facility] Medical History (Updated 11/09/21 @ 16:06 by Zelda Mcdaniels 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, 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-C) Bilateral carotid artery stenosis Bilateral extracranial carotid artery stenosis GERD (gastroesophageal reflux disease) HTN (hypertension) Hyperlipidemia Type 2 diabetes mellitus Surgical History (Reviewed 11/09/21 @ 10:35 by Zelda Mcdaniels 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, 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-C) History of cataract extraction History of cholecystectomy History of hysterectomy History of umbilical hernia repair Family History (Reviewed 11/09/21 @ 10:35 by Zelda Mcdaniels 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, 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-C) Brother Diabetes Heart disease Hypertension Lung cancer Mother Hypertension Brother Colon cancer Brother Cancer Brother Sleep apnea Myocardial infarction Brother Sleep apnea Other Asthma Social History (Reviewed 11/09/21 @ 10:35 by Zelda Mcdaniels 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, 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-C) household members: 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 housing: house Smoking Status: Never smoker alcohol intake: never substance use type: does not use what type of physical activity do you participate in: none seatbelt use: always do you feel safe at home: Yes Review of Systems Resp Respiratory: Yes as per HPI Exam Const Constitutional: Positive conversant, cooperative, in no acute respiratory distress, healthy appearing, well developed, well nourished, good hygiene and obese Head Head: Yes normocephalic and Yes atraumatic Eyes Eye: Positive clear conjunctiva; Negative nystagmus Ears Ear: Positive hearing normal and external ears normal Nose Nose: Yes other (face mask in place) Neck Neck: Positive normal visual inspection, full ROM and trachea midline Chest Wall Chest: Positive normal inspection of the chest and symmetric chest movement; Negative increased A/P diameter Resp lung sounds: Positive clear to auscultation, good air exchange, normal expiratory time and normal respiratory effort; Negative diminished lung sounds, wheezes, rhonchi or rales Cardio Cardiac: Positive regular rate, regular rhythm, S1 normal and S2 normal; Negative murmur GI GI: Positive normal to inspection and obese Genitourinary: Positive deferred Musc Musculoskeletal: Positive steady gait, ROM normal and kyphosis; Negative scoliosis Skin Pulmonary Skin Exam: Positive intact; Negative lesion, rash or ulcers Extremities Extremities: No clubbing and No cyanosis Neuro Neurologic: Yes no focal neuro deficits, Yes conversant, Yes cooperative, Yes normal cognition, Yes normal coordination, Yes normal concentration and Yes understands questions Psych Appearance: Positive grossly normal, eye contact and well kempt Mental Status: Positive mental status grossly normal Mood: Positive congruent mood Affect: Positive normal affect Coding Level of Care Code Off vis,new,level 4 Diagnoses ABDI (obstructive sleep apnea) G47.33 BMI 40.0-44.9, adult Z68.41 11/09/21 1615 <Electronically signed by Zelda Mcdaniels NP 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-C> Date Zelda Mcdaniels NP 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-C Cosigner Signature: Date (if applicable) CC: Dr. Martina Lal, DO Martina Lal DO Work Phone: Start: 10-12-2021 End: 10-12-2021 Carotid Duplex Ultrasound Comments: See Note; NOTES: [facility] [place] [address] Carotid Duplex Ultrasound 10/12/21 0949 MR#: [id number] Acct: [id number] Name: DEBBIE MIRELES Rep #: [id number] : 1935 86 From: Michael Michel MD Attending Dr: Dr. Martina Lal DO Status: R EG CLI Ordering Dr: Martina Lal DO Date: 10/12/21 Location: CVS Sex: F C Admitted: Reason For Study: Carotid disease, bilateral Rt. Velocities/BP Lt. Velocities/BP Prox CCA 79.9/9.5 cm/sec. Prox CCA 68.1/11.5 cm/sec. Mid CCA 82.5/9.5 cm/sec. Mid CCA 60.8/7.9 cm/sec. Dist CCA 69.5/8.2 cm/sec. Dist CCA 134.6/27 cm/sec. Prox ICA 91.4/13.7 cm/sec. Prox ICA 189.3/36.5 cm/sec. Mid ICA 107/18.9 cm/sec. Mid ICA 197.2/28.6 cm/sec. Dist ICA 88.2/13.3 cm/sec. Dist ICA 78.5/11.1 cm/sec. Rt. ICA/CCA = 1.34. Lt. ICA/CCA = 2.9. Prox ECA 361.9/8.8 cm/sec. Prox ECA 210.9/16.7 cm/sec. Rt. Vert. 64.5/13.3 cm/sec. Lt. Vert. 53.5/7.9 cm/sec. Right Extracranial There is homogeneous, smooth atherosclerotic plaque noted in the right common carotid artery. There is heterogeneous, irregular atherosclerotic plaque noted in the right internal [...] the left vertebral artery. Procedure Carotid Duplex 89718. This is a Carotid Duplex examination using B-mode, color flow and specral Doppler. Exam performed in department. VL/Carotid Duplex Ultrasound Interpretation Summary Mild irregular plaque of the proximal right internal carotid artery with less than 50% stenosis Greater than 50% stenosis right external carotid artery Irregular calcific plaque left common carotid and proximal internal carotid artery. 50 to 69% stenosis of the left internal carotid artery. Greater than 50% stenosis left external carotid artery Patent and antegrade vertebral arteries bilaterally Findings appear similar to the previous examination of June 19, 2018 _ Ordering Physician: Martina Lal Referring Physician: Martina Lal Performed By: Latonia Donato Sajan 10/12/21 1320 Date Michael Michel MD CC: Dr. Martina Lal DO Date Dictated: 10/12/2149 Date Transcribed: 10/12/21 132 Assistant Project Manager: Nighat Lal DO Work Phone: Start: 10-12-2021 End: 10-12-2021 Renal Artery Duplex Ultrasound Comments: See Note; NOTES: [facility] [address] [place] [address] Renal Artery Duplex Ultrasound 10/12/21 0904 MR#: [id number] Acct: [id number] Name: DEBBIE MIRELES Rep #: [id number] : 1935 86 From: Michael Michel MD Attending Dr: Dr. Martina Lal DO Status: [facility]: Martina Lal DO Date: 10/12/21 Location: CVS Sex: F C Admitted: Reason For Study: HTN Right Renal Artery Left Renal Artery Right renal artery ostium Left renal artery ostium 150.4/31.8 175.1/23.1 RSV/EDV. PSV/EDV. Right renal artery proximal Left renal artery proximal PSV/EDV 167.8/28.7 PSV/EDV. 209.9/28.8 . Right renal artery mid 213.2/30.6 Left renal artery mid 216.4/22.3 PSV/EDV. PSV/EDV . Right renal artery distal Left renal artery distal 151.2/23.9 191.1/34.2 PSV/EDV. PSV/EDV. Right Renal Parenchyma Left Renal Parenchyma Upper Pole Medula 36.1/7.6 PSV/EDV. Left upper pole medulla 40.5/9.8 Right upper pole medulla EDR 0.21 . PSV/EDV . Right upper pole medulla R.I. Left upper pole medulla EDR 0.24 . 0.79 . Left upper pole medulla R.I. 0.76 . Upper Randall Cortx 25.1/7.6 PSV/EDV. UP Cortex 17.3/4.5 PSV/EDV. Right upper pole cortex EDR 0.30 . Left upper pole cortex EDR 0.26 . Right upper pole cortex R.I. 0.70 . Left upper pole cortex R.I. 0.74 . Right lower Pole medulla 38.3/9.8 Left lower Pole medulla 27.3/8.1 PSV/EDV . PSV/EDV . Right lower pole medulla EDR 0.26 . Left lower pole medulla EDR 0.30 . Right lower pole medulla R.I. Left lower pole medulla R.I. 70 . 0.74 . Lower Pole Cortx 16.3/4.5 PSV/EDV. Lower Pole Cortex 22.9/6.5 PSV/EDV. Left lower pole cortex EDR 0.27 . Right lower pole cortex EDR 0.28 . Left lower pole cortex R.I. 0.73 . Right lower pole cortex R.I. 0.72 . Left Renal Hilar Right Renal Hilar LT Hilar avg 52.9/9.9 PSV/EDV . Right Hilar avg 62.1/8.9 PSV/EDV. Left hilar acceleration time 70 Right hilar acceleration time 40 m/sec. m/sec. Left Renal Dimensions Right Renal Dimensions Left kidney size 10.69 cm . Right kidney size 10.30 cm . Left cortical dimension 1.45 cm . Right cortical dimension 1.69 cm . Aorta Proximal abdominal aorta 1.47 x 1.47 cm . Proximal abdominal aorta peak systolic velocity is 135.5 cm/sec . Distal abdominal aorta 1.32 x 1.32 cm . Distal abdominal aorta peak systolic velocity is 154.4 cm/sec . VL/Renal Artery Duplex Ultrasound Interpretation Summary Maximal aortic diameter proximally at 1.47 x 1.47 cm in diameter. Velocity flow mildly elevated throughout the aorta. This invalidates renal artery to aortic ratios. Maximum velocity within the right mid renal artery is mildly abnormal at 213 cm/s peak systolic flow but this may be a reflection of the increased velocity in the abdominal aorta. Suspect less than 60% stenosis. Right renal length is maintained at 10.3 cm which is normal Maximal velocity within the left mid renal artery is 216 cm/s peak static flow which is marginally higher than normal but again in relationship to the increased velocity in the abdominal aorta likely represents less than 60% stenosis. Left renal length maintained at 10.69 cm which is normal _ Ordering Physician: Martina Lal Referring Physician: Martina Lal Performed By: Latonia Donato RVT 10/12/21 1317 Date Michael Michel MD CC: Dr. Martina Lal DO Date Dictated: 10/12/2104 Date Transcribed: 10/12/21 1317 Assistant Project Manager: Signed Martina Lal DO Work Phone: Start: 04-17-2021 End: 04-18-2021 Upper Ext Joint Only(Routine) Comments: See Note; NOTES: [facility] [address] [place] [address] Upper Ext Joint Only(Routine) MR#: [id number] Acct: [id number] Name: DEBBIE MIRELES Rep #: [id number] : 1935 F 85 From: Vaughn Chi PCP: ERIKA Hansen Status: REG CLI Study: Upper Ext Joint Only(Routine) Date of Exam: 0 04/17/21 Exam# [id number] Ordering Dr: Sanam Quesada MD STUDY: MRI LEFT SHOULDER REASON FOR EXAM: Left shoulder pain for about 6 weeks, no specific injury. TECHNIQUE: Standardized fat and water weighted pulse sequences were obtained in all 3 orthogonal planes. COMPARISON: Radiographs 04/04/2021. FINDINGS: Although there is image degradation secondary to patient motion, there is still significant diagnostically useful information available from this examination. There is a full-thickness tear of the distal supraspinatus tendon extending into the anterior infraspinatus tendon (T2 coronal images 10-13) measuring approximately 1.6 cm in greatest length. There is mild subscapularis tendinosis (T2 axial image 13) without discrete tendon tear. Normal teres minor tendon. Normal supraspinatus muscle. Normal infraspinatus muscle. Normal subscapularis muscle. Normal teres minor muscle. There is glenohumeral arthrosis with chondral thinning, especially of the glenoid (T2 axial images 9-12). There is a small glenohumeral joint effusion. Normal humeral head and visualized proximal humerus. Normal biceps labral complex. Normal intracapsular long biceps tendon. There is degeneration of the labrum. Normal capsulo- ligamentous complex. There is acromioclavicular arthrosis without substantial undersurface osteophytes (T2 sagittal images 15-17). There is a Type II morphology (curved), with a subacromial enthesophyte (T2 sagittal image 13). There is subacromial-subdeltoid bursal fluid with bursal thickening (T2 axial images 9-16). Normal visualized coracohumeral and coracoacromial ligaments. Normal deltoid muscle. Normal trapezius muscle. MRI/Upper Ext Joint Only(Routine) IMPRESSION: Full-thickness tear of the supraspinatus/infraspinatus tendons. Mild subscapularis tendinosis. 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 Glenohumeral joint fluid communicating with the subacromial-subdeltoid bursa. Electronically Signed: Vaughn Holguin MD at 8:50 EDT Tel , Service support , CC: ERIKA Nazario; Dr. Sanam Quesada MD Assistant Project Manager: Signed Sanam Quesada Work Phone: Start: 04-04-2021 End: 04-05-2021 Shoulder min 2 Views Comments: See Note; NOTES: [facility] [address] [place] [id number] Shoulder min 2 Views MR#: [id number] Acct: [id number] Name: DEBBIE MIRELES Rep #: [id number] : 1935 F 85 From: Arsenio Hyman MD PCP: ERIKA Hansen Status: REG CLI Study: Shoulder min 2 Views Date of Exam: 04/04/21 Exam# [id number] Ordering Dr: Nicolasa Nazario NP STUDY: X-RAY - LEFT SHOULDER REASON FOR EXAM: Female, 85 years old. Pain, decreased range of motion TECHNIQUE: 4 view(s) of the shoulder. COMPARISON: None. 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 There is degenerative arthrosis of the acromioclavicular joint without inferior osseous spur formation. Normal acromion. There is a prominent spur on the undersurface of the acromion which could cause impingement in the right clinical setting. There is demineralization of the humerus and visualized osseous structures. The soft tissue structures are unremarkable. Normal visualized pulmonary apex. RAD/Shoulder min 2 Views IMPRESSION: Degenerative arthrosis with a prominent spur on the undersurface of the acromion. No demonstrated fracture or suspicious osseous lesion Electronically Signed: Radames Hyman MD at 12:13 EDT , Service support , CC: ERIKA Nazario Assistant Project Manager: Signed Nicolasa Nazario CNP Work Phone: Anaerobic microbial culture Dr. Martina Lal Work Phone: Anaerobic microbial culture Dr. Martina Lal Work Phone: Anaerobic microbial culture Dr. Martina Lal Work Phone: Bacteria identified in Blood by Culture Dr. Martina Lal Work Phone: Cataract extraction bilateral Turner Balderas Comment on above: 12 Cataract extraction bilateral Turner Balderas FRUIT HARVESTER Comment on above: 12 Cataract extraction bilateral Diane Austin MA Comment on above: 12 Cataract extraction bilateral Keri Gravius FRUIT BUYING GRADER Comment on above: 12 Cataract extraction bilateral Nelda Mohamud FRUIT HARVESTER Comment on above: 12 Cataract extraction bilateral Nelda Mohamud FRUIT HARVESTER Comment on above: 12 Cataract extraction bilateral Keri Gravius FRUIT BUYING GRADER Comment on above: 12 Cataract extraction bilateral Keri Gravius FRUIT BUYING GRADER Comment on above: 12 Cataract extraction bilateral Keri Gravius FRUIT BUYING GRADER Comment on above: 12 Cataract extraction bilateral Turner Balderas FRUIT HARVESTER Comment on above: 12 Cataract extraction bilateral Kayela Independence FR[employer] BUYING GRADER Comment on above: 12 Cataract extraction bilateral Kayela Daya FR[employer] BUYING GRADER Comment on above: 12 Cataract extraction bilateral Kayela Independence FR[employer] BUYING GRADER Comment on above: 12 Cataract extraction bilateral Kayela Daya FRUIT BUYING GRADER Comment on above: 12 Cataract extraction bilateral Kayela Daya FR[employer] BUYING GRADER Comment on above: 12 Cataract extraction bilateral Katharina Manchak FRUIT BUYING GRADER Comment on above: 12 Cholecystectomy Turner Balderas Comment on above: 97 Cholecystectomy Turner Balderas FRUIT HARVESTER Comment on above: 97 Cholecystectomy Diane Parmar y MA Comment on above: 97 Cholecystectomy Keri Gravi us FRUIT BUYING GRADER Comment on above: 97 Cholecystectomy Nelda Coffma n FRUIT HARVESTER Comment on above: 97 Cholecystectomy Nelda Coffma n FRUIT HARVESTER Comment on above: 97 Cholecystectomy Keri Gravi us FRUIT BUYING GRADER Comment on above: 97 Cholecystectomy Keri Gravi us FRUIT BUYING GRADER Comment on above: 97 Cholecystectomy Keri Gravi us FRUIT BUYING GRADER Comment on above: 97 Cholecystectomy Turner Balderas FRUIT HARVESTER Comment on above: [address] FRUIT BUYING GRADER Comment on above: [address] FR[employer] BUYING GRADER Comment on above: [address] FR[employer] BUYING GRADER Comment on above: [address] FR[employer] BUYING GRADER Comment on above: [address] FRUIT BUYING GRADER Comment on above: 97 Cholecystectomy Katharina Manc hak FR[employer] BUYING GRADER Comment on above: 97 Colonoscopy Turner Balderas Comment on above: ,,14 Colonoscopy Turner Balderas LP N Comment on above: ,,14 Colonoscopy Diane Zacarias Comment on above: ,,14 Colonoscopy Keri Gravius FR[employer] BUYING GRADER Comment on above: ,,14 Colonoscopy Nelda Mohamud L PN Comment on above: ,,14 Colonoscopy Nelda Mohamud L PN Comment on above: ,,14 Colonoscopy Keri Gravius FR[employer] BUYING GRADER Comment on above: ,,14 Colonoscopy Keri Gravius FRUIT BUYING GRADER Comment on above: ,,14 Colonoscopy Keri Gravius FRUIT BUYING GRADER Comment on above: ,,14 Colonoscopy Turner Balderas LP N Comment on above: ,,14 Colonoscopy Kayela Independence FR[employer] BUYING GRADER Comment on above: ,,14 Colonoscopy Kayela Independence FR[employer] BUYING GRADER Comment on above: ,,14 Colonoscopy Kayela Independence FR[employer] BUYING GRADER Comment on above: ,,14 Colonoscopy Kayela Independence FR[employer] BUYING GRADER Comment on above: ,,14 Colonoscopy Kayela Independence FR[employer] BUYING GRADER Comment on above: ,08,14 Colonoscopy Katharina Manchak FR[employer] BUYING GRADER Comment on above: 02,08,14 D&C >50yrs Turner Balderas D&C >50yrs Turner Balderas LP N D&C >50yrs Diane Austin M A D&C >50yrs Keri Gravius FR[employer] BUYING GRADER D&C >50yrs Nelda Mohamud L PN D&C >50yrs Nelda Mohamud L PN D&C >50yrs Keri Gravius FRUIT BUYING GRADER D&C >50yrs Keri Gravius FRUIT BUYING GRADER D&C >50yrs Keri Gravius FRUIT BUYING GRADER D&C >50yrs Turner Balderas LP N D&C >50yrs Kayela Independence FRUIT BUYING GRADER D&C >50yrs Kayela Daya FR[employer] BUYING GRADER D&C >50yrs Kayela Independence FRUIT BUYING GRADER D&C >50yrs Kayela Independence FRUIT BUYING GRADER D&C >50yrs Kayela Independence FRUIT BUYING GRADER D&C >50yrs Katharina Manchak FRUIT BUYING GRADER Hysterectomy Turner Andrey Hysterectomy Turner Balderas LP N Hysterectomy Diane Austin M A Hysterectomy Keri Gravius FR[employer] BUYING GRADER Hysterectomy Nelda Mohamud L PN Hysterectomy Nelda Mohamud L PN Hysterectomy Keri Gravius FR[employer] BUYING GRADER Hysterectomy Keir Gravius FR[employer] BUYING GRADER Hysterectomy Keri Gravius FR[employer] BUYING GRADER Hysterectomy Turner Andrey LP N Hysterectomy Kayela Independence FR[employer] BUYING GRADER Hysterectomy Kayela Independence FR[employer] BUYING GRADER Hysterectomy Kayela Daya FR[employer] BUYING GRADER Hysterectomy Kayela Independence FR[employer] BUYING GRADER Hysterectomy Kayela Independence FR[employer] BUYING GRADER Hysterectomy Katharina Manchak FR[employer] BUYING GRADER Investigation of transfusion reaction Dr. Martina Lal Work Phone: Investigation of transfusion reaction Dr. Martina Lal Work Phone: Microbial culture, routine Dr. Martina Lal Work Phone: Microbial culture, routine Dr. Martina Lal Work Phone: Microbial culture, routine Dr. Martina Lal Work Phone: Minor knee surgery 2018-Dr. Ly Balderas Minor knee surgery 2018-Dr. Ly Balderas [facility] Minor knee surgery 2018-Dr. Ly Austin [place] Minor knee surgery 2018-Dr. Ly Johnson [facility] Minor knee surgery 2018-Dr. Ly Mallory LPN Minor knee surgery 2018-Dr. Ly Mallory [facility] Minor knee surgery 2018-Dr. Ly Johnson [facility] Minor knee surgery 2018-Dr. Ly Johnson [facility] Minor knee surgery 2018-Dr. Ly Johnson [facility] Minor knee surgery 2018-Dr. Ly Balderas [facility] Minor knee surgery 2018-Dr. Ly Stapleton [facility] Minor knee surgery 2018-Dr. Ly Stapleton [facility] Minor knee surgery 2018-Dr. Ly Stapleton [facility] Minor knee surgery 2018-Dr. Ly Stapleton [facility] Minor knee surgery 2018-Dr. Ly Stapleton [facility] Minor knee surgery 2018-Dr. Ly Marion [facility] Repair of inguinal hernia Turner Balderas Respiratory syncytia l virus antigen assay Dr. Martina Lal Work Phone: Respiratory syncytia l virus antigen assay Dr. Martina Lal Work Phone: SARS-CoV-2 & FLU Antigen (Rapid) Dr. Martina Lal Work Phone: SARS-CoV-2 & FLU Antigen (Rapid) Dr. Martina Lal Work Phone: SARS-CoV-2 & FLU Antigen (Rapid) Dr. Martina Lal Work Phone: Urine culture Dr. Martina Lal Work Phone: Urine culture Dr. Martina Lal Work Phone: Viral antigen assay Dr. Prisca Lal Work Phone: Viral antigen assay Dr. Prisca Lal Work Phone: Dr. Martina Lal Work Phone: Dr. Martina Lal Work Phone: Dr. Martina Lal Work Phone: Dr. Martina Lal Work Phone: Plan of Treatment Date Care Activity Detail Author Start: 01-12-2025 ambulatory Ambulatory Facility:[facility] Start: 06-06-2025 X-ray of chest, PA and lateral views Chest PA and Lateral [facility] Start: 09-10-2023 [facility] Start: 01-31-2023 Procedure Education Eprescribed prescriptions (G8553) [facility] Work Phone: Start: 08-29-2022 Procedure Education Eprescribed prescriptions (G8553) [facility] Work Phone: Start: 08-29-2022 Provider Instructions for Treatment [facility] Work Phone: Start: 08-13-2022 Basic metabolic panel calcium total METABOLIC PANEL, BASIC (83140) [facility]; [facility] Work Phone: Comment on above: Faxed to outreach Start: 08-07-2022 Basic metabolic panel calcium total METABOLIC PANEL, BASIC (05500) [facility]; [facility] Work Phone: Start: 07-31-2022 Comprehensive metabolic panel METABOLIC PANEL, COMPREHENSIVE (85006) [facility]; [facility] Work Phone: Start: 07-25-2022 Procedure Education Eprescribed prescriptions (G8553) [facility]; [facility] Work Phone: Start: 07-25-2022 Provider Instructions for Treatment [facility] Work Phone: Start: 07-25-2022 Basic metabolic panel calcium total METABOLIC PANEL, BASIC (49185) [facility]; [facility] Work Phone: Start: 07-17-2022 Patient discharge [facility] Start: 07-16-2022 Referral to service [facility] Start: 07-16-2022 Admission procedure [facility] Start: 07-15-2022 Care planning and problem solving actions [facility] Start: 07-14-2022 Application of intermittent pneumatic compression device [facility] Start: 07-14-2022 Following clinical pathway protocol [facility] Start: 07-14-2022 Assessment of risk of venous thromboembolism [facility] Start: 07-14-2022 Fall prevention [facility] Start: 12-25-2022 Incentive spirometry [facility] Start: 07-14-2022 Inhalation therapy procedure [facility] Start: 07-14-2022 Insertion of catheter into peripheral vein [facility] Start: 07-14-2022 Introduction of urinary catheter [facility] Start: 07-14-2022 Measuring intake and output [facility] Start: 07-14-2022 Oxygen therapy [facility] Start: 07-14-2022 Providing care according to standard [facility] Start: 07-14-2022 Provision of activity privileges [facility] Start: 07-14-2022 Referral to occupational therapist [facility] Start: 07-14-2022 Referral to service [facility] Start: 07-14-2022 [facility] Start: 07-14-2022 Verification routine [facility] Work Phone: Start: 07-14-2022 Patient referral to dietitian [facility] Start: 07-13-2022 Admission procedure [facility] Start: 07-13-2022 [facility] Work Phone: Start: 07-10-2022 Basic metabolic panel calcium total Metabolic Panel, Basic (41051) [facility] Work Phone: Start: 07-10-2022 Procedure Education Eprescribed prescriptions (G5175) [facility] Work Phone: Start: 07-10-2022 Provider Instructions for Treatment [facility] Work Phone: Start: 07-07-2022 Patient discharge [facility] Start: 07-07-2022 [facility] Start: 07-04-2022 [facility] [facility] Start: 07-04-2022 Referral to kettle worker [facility] Start: 07-04-2022 Referral to hand clerical verifier [facility] Start: 07-03-2022 Admission procedure [facility] Start: 07-03-2022 Following clinical pathway protocol [facility] Start: 07-02-2022 Application of intermittent pneumatic compression device [facility] Start: 07-02-2022 Care regimes management [facility] Start: 07-02-2022 Notification of physician [facility] Start: 07-02-2022 [facility] Start: 07-02-2022 Assessment of risk of venous thromboembolism [facility] Start: 07-02-2022 Inhalation therapy procedure [facility] Start: 07-02-2022 Insertion of catheter into peripheral vein [facility] Start: 07-02-2022 Measuring intake and output [facility] Start: 07-02-2022 Oxygen therapy [facility] Start: 07-02-2022 Providing care according to standard [facility] Start: 07-02-2022 Provision of activity privileges [facility] Start: 07-02-2022 Referral to occupational therapist [facility] Start: 07-02-2022 Referral to service [facility] Start: 07-02-2022 [facility] Start: 07-02-2022 Following clinical pathway protocol [facility] Start: 07-02-2022 Verification routine [facility] Work Phone: Start: 07-02-2022 End: 07-03-2022 [facility] Start: 07-02-2022 Admission procedure [facility] Start: 06-11-2022 Patient referral [facility] Work Phone: Start: 06-10-2022 Blood count complete automated CBC & PLATELETS (AUTO) (13626) [facility] Work Phone: Start: 06-10-2022 Basic metabolic panel calcium total METABOLIC PANEL, BASIC (21534) [facility] Work Phone: Start: 06-10-2022 Procedure Education Eprescribed prescriptions (G8553) [facility] Work Phone: Start: 06-10-2022 Provider Instructions for Treatment [facility] Work Phone: Start: 06-09-2022 Development of care plan [facility] Start: 06-07-2022 Basic metabolic panel calcium total METABOLIC PANEL, BASIC (33435) [facility] Work Phone: Start: 11-18-2022 CBC, PLATELETS & MANUAL DIFF (48034) CBC, PLATELETS & MANUAL DIFF (88250) [facility]; [facility] Work Phone: Start: 06-06-2022 Patient discharge [facility] Start: 06-04-2022 [facility] Start: 06-03-2022 Referral to service [facility] Start: 06-03-2022 [facility] Start: 05-29-2022 Referral to cut off machine unloader [facility] Start: 05-27-2022 [facility] Start: 05-27-2022 [facility] Start: 05-24-2022 Development of care plan [facility] Start: 05-24-2022 Developing a treatment plan [facility] Start: 05-24-2022 Referral to kettle worker [facility] Start: 05-23-2022 End: 05-24-2022 [facility] Start: 05-23-2022 Consultation for treatment [facility] Start: 05-23-2022 Following clinical pathway protocol [facility] Start: 05-23-2022 Wound care [facility] Start: 05-23-2022 Admission procedure [facility] Start: 05-23-2022 Measuring intake and output [facility] Start: 05-23-2022 Patient referral to dietitian [facility] Start: 05-23-2022 Referral to occupational therapist [facility] Start: 05-23-2022 Referral to service [facility] Start: 05-23-2022 Vital signs measurements [facility] Start: 05-23-2022 Patient discharge [facility] Start: 05-22-2022 Referral to service [facility] Start: 05-21-2022 Referral to hand clerical verifier [facility] Start: 05-20-2022 Referral to kettle worker [facility] Start: 05-20-2022 Referral to occupational therapist [facility] Start: 05-20-2022 Referral to service [facility] Start: 05-20-2022 Care regimes management [facility] Start: 05-20-2022 Ambulation without limitation [facility] Start: 05-20-2022 Assessment of risk of venous thromboembolism [facility] Start: 05-20-2022 Consultation for treatment [facility] Start: 05-20-2022 Elevation of affected extremity [facility] Start: 05-20-2022 Insertion of catheter into peripheral vein [facility] Start: 05-20-2022 Measuring intake and output [facility] Start: 05-20-2022 End: 05-20-2022 Notification of physician [facility] Start: 05-20-2022 Oxygen therapy [facility] Start: 05-20-2022 Patient education [facility] Start: 05-20-2022 Providing care according to standard [facility] Start: 05-20-2022 End: 05-20-2022 [facility] Start: 05-20-2022 Admission procedure [facility] Start: 05-20-2022 End: 05-20-2022 Following clinical pathway protocol [facility] Start: 05-20-2022 Patient referral to dietitian [facility] Start: 05-18-2022 Referral to service [facility] Start: 05-18-2022 Patient discharge [facility] Start: 05-18-2022 [facility] Start: 05-17-2022 Consultation [facility] Start: 05-16-2022 Oxygen therapy [facility] Start: 05-16-2022 Inhalation therapy procedure [facility] Start: 05-15-2022 [facility] Start: 05-15-2022 Care planning and problem solving actions [facility] Start: 05-15-2022 Incentive spirometry [facility] Start: 05-15-2022 Referral to occupational therapist [facility] Start: 05-15-2022 Referral to service [facility] Start: 05-15-2022 Application of intermittent pneumatic compression device [facility] Start: 05-15-2022 Assessment of risk of venous thromboembolism [facility] Start: 05-15-2022 Care regimes management [facility] Start: 05-15-2022 Consultation for treatment [facility] Start: 05-15-2022 Documentation procedure [facility] Start: 05-15-2022 Insertion of catheter into peripheral vein [facility] Start: 05-15-2022 Notification of physician [facility] Start: 05-15-2022 Providing care according to standard [facility] Start: 05-15-2022 Provision of activity privileges [facility] Start: 05-15-2022 Referral to general surgeon [facility] Start: 05-15-2022 [facility] Start: 05-15-2022 Following clinical pathway protocol [facility] Start: 05-15-2022 Admission procedure [facility] Start: 05-15-2022 Patient referral to dietitian [facility] Start: 05-14-2022 [facility] Work Phone: Start: 05-14-2022 End: 05-14-2022 Blood culture [facility] Work Phone: Start: 05-14-2022 [facility] Work Phone: Start: 05-10-2022 Procedure Education Eprescribed prescriptions (G8553) [facility] Work Phone: Start: 05-10-2022 Provider Instructions for Treatment [facility] Work Phone: Start: 05-10-2022 Assay of aldosterone ALDOSTERONE (96551) [facility] Work Phone: Start: 05-10-2022 Assay of renin RENIN (98150) [facility] Work Phone: Start: 05-10-2022 Metanephrines METANEPHRINES - URINE (23964) [facility] Work Phone: Start: 05-10-2022 Catecholamines total urine CATECHOLAMINES TOTAL, URINE (68043) [facility] Work Phone: Start: 05-10-2022 Assay of vanillylmandelic acid urine URINE VMA (25125) [facility] Work Phone: Start: 05-09-2022 Patient referral [facility] Work Phone: Start: 04-30-2022 Anesthesia radical/modified radical breast [facility] Start: 04-30-2022 Bx/exc lymph node open deep axillary node [facility] Start: 04-30-2022 Inj radioactive tracer for id of sentinel node [facility] Start: 04-30-2022 Mastectomy partial [facility] Start: 04-30-2022 Patient discharge [facility] Start: 04-19-2022 Provider Instructions for Treatment [facility] Work Phone: Start: 03-14-2022 Procedure Education Eprescribed prescriptions (G8553) [facility] Work Phone: Start: 03-14-2022 Provider Instructions for Treatment Reviewed Diagnostic Tests [facility] Work Phone: Start: 03-08-2022 Assay of hydroxyindolacetic acid 5-hiaa HYDROXYINDOLACET ACID 5- (30906) [facility]; [facility] Work Phone: Start: 03-08-2022 Adrenocorticotropic hormone acth ACTH (00439) [facility]; [facility] Work Phone: Start: 03-08-2022 Cortisol total CORTISOL TOTAL (49489) [facility] Work Phone: Start: 03-08-2022 Cortisol free CORTISOL FREE (69025) [facility] Work Phone: Start: 03-07-2022 Procedure Education Eprescribed prescriptions (G8553) [facility]; [facility] Work Phone: Start: 03-07-2022 Provider Instructions for Treatment [facility] Work Phone: Start: 03-05-2022 Dehydroepiandrosterone DHEA (DEHYDROEPIANDROSTERONE ) (15402) [facility]; [facility] Work Phone: Start: 03-05-2022 Acth stimulation panel adrenal insufficiency ACTH STIMULATION PANEL; FOR ADRENAL INSUFFICIENCY (02317) [facility]; [facility] Work Phone: Start: 03-05-2022 Assay of hydroxyindolacetic acid 5-hiaa HYDROXYINDOLACET ACID 5- (50095) [facility] Work Phone: Start: 03-05-2022 Adrenocorticotropic hormone acth ACTH (76240) [facility] Work Phone: Start: 03-05-2022 Cortisol free Cortisol,Urinary Free 24- Hour Urine (61241) [facility]; [facility] Work Phone: Start: 03-05-2022 Metanephrines METANEPHRINES (98075) [facility] Work Phone: Start: 03-05-2022 Catecholamines fractionated Catecholamines,24-Hour Urine (78628) [facility] Work Phone: Start: 02-27-2022 Assay of hydroxyindolacetic acid 5-hiaa HYDROXYINDOLACET ACID 5- (96387) [facility]; [facility] Work Phone: Start: 02-27-2022 Adrenocorticotropic hormone acth ACTH (46296) [facility] Work Phone: Start: 02-27-2022 Dehydroepiandrosterone DHEA (DEHYDROEPIANDROSTERONE ) (10711) [facility]; [facility] Work Phone: Start: 02-27-2022 Acth stimulation panel adrenal insufficiency ACTH STIMULATION PANEL; FOR ADRENAL INSUFFICIENCY (27526) [facility]; [facility] Work Phone: Start: 02-27-2022 Cortisol free Cortisol,Urinary Free 24- Hour Urine (03001) [facility]; [facility] Work Phone: Start: 02-27-2022 Catecholamines fractionated Catecholamines,24-Hour Urine (83797) [facility]; [facility] Work Phone: Start: 02-27-2022 Metanephrines METANEPHRINES - URINE (19968) [facility]; [facility] Work Phone: Comment on above: 24 hr urine Start: 02-18-2022 C-reactive protein C-REACTIVE PROTEIN (06027) [facility]; [facility] Work Phone: Start: 02-18-2022 Sedimentation rate rbc non-automated Sed Rate Erythrocyte (91920) [facility]; [facility] Work Phone: Start: 02-18-2022 Comprehensive metabolic panel Metabolic Panel, Comprehensive (81503) [facility]; [facility] Work Phone: Start: 02-18-2022 Blood count manual cell count each CBC with auto diff (95486) [facility]; [facility] Work Phone: Start: 02-18-2022 Procedure Education Eprescribed prescriptions (G8553) [facility] Work Phone: Start: 02-18-2022 Provider Instructions for Treatment *Abd Pain Red Flags [facility] Work Phone: Start: 12-31-2021 Procedure Education Eprescribed prescriptions (G8553) [facility]; [facility] Work Phone: Start: 12-31-2021 Provider Instructions for Treatment [facility] Work Phone: Start: 12-31-2021 Assay of parathormone PARATHORMONE (67348) [facility]; [facility] Work Phone: Start: 12-31-2021 Assay of thyroid stimulating hormone tsh [facility]; [facility] Work Phone: Start: 12-31-2021 Urnls dip stick/tablet reagent auto microscopy URINALYSIS, W/ MICRO (81592) [facility]; [facility] Work Phone: Start: 12-31-2021 Urine albumin quantitative MICROALBUMIN: CREATININE RATIO (06933) AND (08352) [facility]; [facility] Work Phone: Start: 12-31-2021 Comprehensive metabolic panel METABOLIC PANEL, COMPREHENSIVE (85042) [facility]; [facility] Work Phone: Start: 12-31-2021 Blood count complete auto&auto difrntl wbc CBC W/AUTO DIFF WBC (80045) [facility]; [facility] Work Phone: Start: 12-31-2021 Lipid panel LIPID PANEL (95377) [facility]; [facility] Work Phone: Start: 12-31-2021 25 hydroxy includes fractions if performed CALCIFIDIOL (72312) VIT D 25 [facility]; [facility] Work Phone: Start: 12-19-2021 Potassium serum plasma/whole blood POTASSIUM SERUM (84559) [facility]; [facility] Work Phone: Start: 10-17-2021 Comprehensive metabolic panel METABOLIC PANEL, COMPREHENSIVE (91061) [facility]; [facility] Work Phone: Start: 10-17-2021 Assay of parathormone PARATHORMONE (93982) [facility]; [facility] Work Phone: Start: 10-17-2021 Procedure Education Eprescribed prescriptions (G8553) [facility] Work Phone: Start: 10-17-2021 Provider Instructions for Treatment [facility] Work Phone: Start: 10-10-2021 Procedure Education Eprescribed prescriptions (G8553) [facility] Work Phone: Start: 10-10-2021 Assay of parathormone PARATHORMONE (15719) [facility] Work Phone: Comment on above: Fax to hospital October 12 Start: 10-10-2021 Calcium total CALCIUM SERUM (83586) [facility] Work Phone: Comment on above[facility] Start: 10-03-2021 Provider Instructions for Treatment Follow up if no improvement or if symptoms worsen [facility] Work Phone: Start: 09-26-2021 Assay of aldosterone ALDOSTERONE (52897) [facility]; [facility] Work Phone: Start: 09-26-2021 Assay of renin RENIN (30909) [facility]; [facility] Work Phone: Start: 09-26-2021 Metanephrines METANEPHRINES - URINE (10700) [facility]; [facility] Work Phone: Start: 09-26-2021 Catecholamines total urine CATECHOLAMINES TOTAL, URINE (82309) [facility]; [facility] Work Phone: Start: 09-26-2021 Assay of vanillylmandelic acid urine URINE VMA (36571) [facility]; [facility] Work Phone: Start: 09-26-2021 Procedure Education Eprescribed prescriptions (G8553) [facility]; [facility] Work Phone: Start: 09-26-2021 Provider Instructions for Treatment [facility] Work Phone: Start: 08-10-2021 Procedure Education Eprescribed prescriptions (G8553) [facility]; [facility] Work Phone: Start: 08-10-2021 Provider Instructions for Treatment Follow up in 1 week [facility]; [facility] Work Phone: Start: 08-09-2021 Assay of troponin quantitative Troponin I (57113) [facility]; [facility] Work Phone: Start: 08-09-2021 Urnls dip stick/tablet reagent auto microscopy URINALYSIS, W/ MICRO (16966) [facility]; [facility] Work Phone: Start: 08-09-2021 Comprehensive metabolic panel METABOLIC PANEL, COMPREHENSIVE (00763) [facility]; [facility] Work Phone: Start: 08-09-2021 Blood count complete auto&auto difrntl wbc CBC W/AUTO DIFF WBC (01003) [facility]; [facility] Work Phone: Start: 08-09-2021 Procedure Education Eprescribed prescriptions (G8553) [facility]; [facility] Work Phone: Start: 05-31-2021 Basic metabolic panel calcium total METABOLIC PANEL, BASIC (74647) [facility]; [facility] Work Phone: Start: 05-28-2021 Procedure Education Eprescribed prescriptions (G8553) [facility]; [facility] Work Phone: Start: 05-28-2021 Provider Instructions for Treatment [facility] Work Phone: Start: 05-28-2021 Assay of thyroid stimulating hormone tsh TSH (02514) [facility]; [facility] Work Phone: Start: 05-28-2021 Urnls dip stick/tablet reagent auto microscopy URINALYSIS, W/ MICRO (06994) [facility]; [facility] Work Phone: Start: 05-28-2021 Urine albumin quantitative MICROALBUMIN: CREATININE RATIO (61675) AND (13250) [facility]; [facility] Work Phone: Start: 05-28-2021 Comprehensive metabolic panel METABOLIC PANEL, COMPREHENSIVE (65807) [facility]; [facility] Work Phone: Start: 05-28-2021 Blood count complete auto&auto difrntl wbc CBC W/AUTO DIFF WBC (36175) [facility]; [facility] Work Phone: Start: 05-28-2021 Lipid panel LIPID PANEL (06805) [facility]; [facility] Work Phone: Start: 04-04-2021 Procedure Education Eprescribed prescriptions (G8553) [facility]; [facility] Work Phone: Start: 04-04-2021 Provider Instructions for Treatment [facility] Work Phone: Start: 03-20-2021 Procedure Education Eprescribed prescriptions (G8553) [facility]; [facility] Work Phone: Start: 03-20-2021 Provider Instructions for Treatment [facility] Work Phone: Start: 12-13-2020 Procedure Education Eprescribed prescriptions (G8553) [facility]; [facility] Work Phone: Start: 12-13-2020 Provider Instructions for Treatment [facility] Work Phone: Start: 12-13-2020 Hemoglobin glycosylated a1c HgA1C , Office (32688) [facility] Work Phone: Start: 12-13-2020 Gluc bld gluc mntr dev cleared fda spec home use Blood Glucose , Office (09000) [facility]; [facility] Work Phone: Start: 12-08-2020 Renal function panel RENAL FUNCTION PANEL (35360) [facility]; [facility] Work Phone: Start: 12-08-2020 Lipid panel LIPID PANEL (40457) [facility]; [facility] Work Phone: Start: 09-15-2020 Procedure Education Eprescribed prescriptions (G8553) [facility]; [facility] Work Phone: Start: 09-15-2020 Provider Instructions for Treatment [facility] Work Phone: Start: 09-15-2020 Blood count complete auto&auto difrntl wbc CBC, Platelets & Auto Diff (15699) [facility]; [facility] Work Phone: Start: 09-15-2020 TSH Qn TSH (15358) [facility]; [facility] Work Phone: Start: 09-15-2020 Comprehensive metabolic panel Metabolic Panel, Comprehensive (19690) [facility]; [facility] Work Phone: Start: 09-15-2020 25 hydroxy includes fractions if performed CALCIFEDIOL (35364) [facility]; [facility] Work Phone: Start: 05-09-2017 End: 05-09-2017 Appointment [facility] Work Phone: 24 Hour ECG [facility] Work Phone: 24 Hour ECG [facility] Aldosterone [Mass/vo lume] in Serum or Plasma [facility] Work Phone: Bacteria identified in Blood by Culture Blood Culture [facility] [facility] Work Phone: Bacteria identified in Urine by Culture Urine Culture [facility] Work Phone: Blood culture [facility] Work Phone: Catecholamine measurement [facility] Work Phone: CBC W Auto Different ial panel - Blood [facility] Work Phone: CBC W Auto Different ial panel - Blood [facility] DOPamine [Mass/volum e] in Serum or Plasma [facility] Work Phone: EPINEPHrine [Mass/vo lume] in Plasma [facility] Work Phone: Hepatic function panel [facility] Influenza virus A an d B and SARS-CoV-2 (COVID-19) Ag panel - Upper respiratory specim [facility] Work Phone: Lipid 1996 panel - S anum or Plasma [facility] MG Breast - bilatera l Screening [facility] Work Phone: NM Heart Views W str ess and W radionuclide IV [facility] Patient Education [facility] Work Phone: Patient referral [facility] Work Phone: Plasma norepinephrin e measurement [facility] Work Phone: Renin [Enzymatic activity/volume] in Plasma [facility] Work Phone: Respiratory syncytia l virus Ag [Presence] in Tissue by Immune stain [facility] Work Phone: SARS-CoV-2 & FLU Ant igen (Rapid) SARS-CoV-2 & FLU Antigen (Rapid) [facility] Work Phone: US Heart [facility] Work Phone: [facility] Work Phone: [facility] Work Phone: [facility] Work Phone[facility] Work Phone: [facility] Work Phone: [facility] Work Phone: [facility] Work Phone: [facility] Work Phone: [facility] Work Phone: [facility] Work Phone: [facility] Work Phone: [facility] Immunizations Immunization Date Immunization Notes Care Provider Fa cili 04-12-2020 Influenza, high dose seasonal Dr. Martina Lal DO Work Phone: [facility] 04-12-2020 influenza, high dose seasonal, preservative-free Dr. Martina Lal Work Phone: [facility] 05-13-2019 Influenza, high dose seasonal Dr. Martina Lal DO Work Phone: [facility] 05-13-2019 influenza, high dose seasonal, preservative-free Dr. Martina Lal Work Phone: [facility] 05-27-[address] Martina Lal Work Phone: [facility] 04-17-2017 Influenza, high dose seasonal Dr. Martina Lal DO Work Phone: [facility] 04-17-2017 influenza, high dose seasonal, preservative-free Dr. Martina Lal Work Phone: [facility] 03-02-2015 pneumococcal conjuga te vaccine, [address] Martina Lal Work Phone: [facility] Payers Date Payer Category Payer Self-pay [id number] 2022 Private Health Insurance [id number] 2009 Medicare [id number] 1935 Unknown [id number] Unknown [employer] Sandrita Unknown [id number] Unknown [id number] [id number] Unknown [id number] [id number] Unknown [id number] 2.16.840.1.552064.3.579.2.462 Unknown [id number] 2.16.840.1.687381.3.579.2.462 Unknown [id number] 2.16.840.1.432375.3.579.2.462 Unknown [id number] 2.16.840.1.074346.3.579.2.462 Unknown [id number] 2.16.840.1.732240.3.579.2.462 Unknown [id number] 2.16.840.1.010233.3.579.2.462 Unknown [id number] 2.16.840.1.360916.3.579.2.462 Unknown [id number] 2.16.840.1.000388.3.579.2.462 Unknown [id number] 2.16.840.1.682321.3.579.2.462 Unknown [id number] 2.16.840.1.032984.3.579.2.462 Unknown [id number] 2.16.840.1.658752.3.579.2.462 Unknown [id number] 2.16.840.1.677218.3.579.2.462 Unknown [id number] 2.16.840.1.197520.3.579.2.462 Unknown [id number] 2.16.840.1.573095.3.579.2.462 Unknown [id number] 2.16.840.1.285135.3.579.2.462 Unknown [id number] 2.16.840.1.929019.3.579.2.462 Unknown [id number] 2.16.840.1.991929.3.579.2.462 Unknown [id number] 2.16.840.1.777101.3.579.2.462 Unknown [id number] 2.16.840.1.558652.3.579.2.462 Unknown [id number] 2.16.840.1.661166.3.579.2.462 Unknown [id number] 2.16.840.1.643906.3.579.2.462 Social History Date Type Detail Facility Caffeine Use Caffeine Use [facility] Work Phone: Comment on above: 1 daily Living Situation: Living Situation: Compr e[facility]; [facility] Work Phone: Living Situation: Living Situation: Compr ehens[facility]; [facility] Work Phone: Start: 06-28-2020 End: 09-10-2022 Tobacco smoking status NHIS Unknown if ever smoked [facility] Start: 07-29-2014 None [facility] Start: 07-29-2014 Alone [facility] Start: 07-29-2014 Non-smoker [facility] Start: 1935 Sex Assigned At Female [facility] Start: 03-12-2024 End: 12-24-2024 Tobacco smoking status NHIS Never smoked tobacco (finding) [facility] Start: 10-14-2024 End: 11-15-2024 Sex Female (finding) [facility] NEGATED: Highlighted row [facility] Medical Equipment Procedure Code Equipment Code Equipment Origin al Text Equipment Identifier Dates SUTURE,LIGA CLIP MED LT200 FDA Start: 04-30-2022 SUTURE,LIGA CLIP SM LT-100 FDA Start: 04-30-2022 SUTURE,LIGA CLIP SM LT-100 FDA Start: 04-30-2022 SUTURE,LIGA CLIP SM LT-100 FDA Start: 04-30-2022 SUTURE,LIGA CLIP MED LT200 FDA Start: 04-30-2022 SUTURE,LIGA CLIP SM LT-100 FDA Start: 04-30-2022 SUTURE,LIGA CLIP SM LT-100 FDA Start: 04-30-2022 SUTURE,LIGA CLIP SM LT-100 FDA Start: 04-30-2022 SUTURE,LIGA CLIP MED LT200 FDA Start: 04-30-2022 SUTURE,LIGA CLIP SM LT-100 FDA Start: 04-30-2022 SUTURE,LIGA CLIP SM LT-100 FDA Start: 04-30-2022 SUTURE,LIGA CLIP SM LT-100 FDA Start: 04-30-2022 SUTURE,LIGA CLIP MED LT200 FDA Start: 04-30-2022 SUTURE,LIGA CLIP SM LT-100 FDA Start: 04-30-2022 SUTURE,LIGA CLIP SM LT-100 FDA Start: 04-30-2022 SUTURE,LIGA CLIP SM LT-100 FDA Start: 04-30-2022 SUTURE,LIGA CLIP MED LT200 FDA Start: 04-30-2022 SUTURE,LIGA CLIP SM LT-100 FDA Start: 04-30-2022 SUTURE,LIGA CLIP SM LT-100 FDA Start: 04-30-2022 SUTURE,LIGA CLIP SM LT-100 FDA Start: 04-30-2022 SUTURE,LIGA CLIP MED LT200 FDA Start: 04-30-2022 SUTURE,LIGA CLIP SM LT-100 FDA Start: 04-30-2022 SUTURE,LIGA CLIP SM LT-100 FDA Start: 04-30-2022 SUTURE,LIGA CLIP SM LT-100 FDA Start: 04-30-2022 SUTURE,LIGA CLIP MED LT200 FDA Start: 04-30-2022 SUTURE,LIGA CLIP SM LT-100 FDA Start: 04-30-2022 SUTURE,LIGA CLIP SM LT-100 FDA Start: 04-30-2022 SUTURE,LIGA CLIP SM LT-100 FDA Start: 04-30-2022 SUTURE,LIGA CLIP MED LT200 FDA Start: 04-30-2022 SUTURE,LIGA CLIP SM LT-100 FDA Start: 04-30-2022 SUTURE,LIGA CLIP SM LT-100 FDA Start: 04-30-2022 SUTURE,LIGA CLIP SM LT-100 FDA Start: 04-30-2022 SUTURE,LIGA CLIP MED LT200 FDA Start: 04-30-2022 SUTURE,LIGA CLIP SM LT-100 FDA Start: 04-30-2022 SUTURE,LIGA CLIP SM LT-100 FDA Start: 04-30-2022 SUTURE,LIGA CLIP SM LT-100 FDA Start: 04-30-2022 SUTURE,LIGA CLIP MED LT200 FDA Start: 04-30-2022 SUTURE,LIGA CLIP SM LT-100 FDA Start: 04-30-2022 SUTURE,LIGA CLIP SM LT-100 FDA Start: 04-30-2022 SUTURE,LIGA CLIP SM LT-100 FDA Start: 04-30-2022 SUTURE,LIGA CLIP MED LT200 FDA Start: 04-30-2022 SUTURE,LIGA CLIP SM LT-100 FDA Start: 04-30-2022 SUTURE,LIGA CLIP SM LT-100 FDA Start: 04-30-2022 SUTURE,LIGA CLIP SM LT-100 FDA Start: 04-30-2022 FDA Start: 04-30-2022 FDA Start: 04-30-2022 FDA Start: 04-30-2022 FDA Start: 04-30-2022 FDA Start: 04-30-2022 FDA Start: 04-30-2022 FDA Start: 04-30-2022 FDA Start: 04-30-2022 FDA Start: 04-30-2022 FDA Start: 04-30-2022 FDA Start: 04-30-2022 FDA Start: 04-30-2022 SUTURE,LIGA CLIP MED LT200 FDA Start: 04-30-2022 SUTURE,LIGA CLIP SM LT-100 FDA Start: 04-30-2022 SUTURE,LIGA CLIP SM LT-100 FDA Start: 04-30-2022 SUTURE,LIGA CLIP SM LT-100 FDA Start: 04-30-2022 SUTURE,LIGA CLIP MED LT200 FDA Start: 04-30-2022 SUTURE,LIGA CLIP SM LT-100 FDA Start: 04-30-2022 SUTURE,LIGA CLIP SM LT-100 FDA Start: 04-30-2022 SUTURE,LIGA CLIP SM LT-100 FDA Start: 04-30-2022 SUTURE,LIGA CLIP MED LT200 FDA Start: 04-30-2022 SUTURE,LIGA CLIP SM LT-100 FDA Start: 04-30-2022 SUTURE,LIGA CLIP SM LT-100 FDA Start: 04-30-2022 SUTURE,LIGA CLIP SM LT-100 FDA Start: 04-30-2022 SUTURE,LIGA CLIP MED LT200 FDA Start: 04-30-2022 SUTURE,LIGA CLIP SM LT-100 FDA Start: 04-30-2022 SUTURE,LIGA CLIP SM LT-100 FDA Start: 04-30-2022 SUTURE,LIGA CLIP SM LT-100 FDA Start: 04-30-2022 SUTURE,LIGA CLIP MED LT200 FDA Start: 04-30-2022 SUTURE,LIGA CLIP SM LT-100 FDA Start: 04-30-2022 SUTURE,LIGA CLIP SM LT-100 FDA Start: 04-30-2022 SUTURE,LIGA CLIP SM LT-100 FDA Start: 04-30-2022 SUTURE,LIGA CLIP MED LT200 FDA Start: 04-30-2022 SUTURE,LIGA CLIP SM LT-100 FDA Start: 04-30-2022 SUTURE,LIGA CLIP SM LT-100 FDA Start: 04-30-2022 SUTURE,LIGA CLIP SM LT-100 FDA Start: 04-30-2022 SUTURE,LIGA CLIP MED LT200 FDA Start: 04-30-2022 SUTURE,LIGA CLIP SM LT-100 FDA Start: 04-30-2022 SUTURE,LIGA CLIP SM LT-100 FDA Start: 04-30-2022 SUTURE,LIGA CLIP SM LT-100 FDA Start: 04-30-2022 SUTURE,LIGA CLIP MED LT200 FDA Start: 04-30-2022 SUTURE,LIGA CLIP SM LT-100 FDA Start: 04-30-2022 SUTURE,LIGA CLIP SM LT-100 FDA Start: 04-30-2022 SUTURE,LIGA CLIP SM LT-100 FDA Start: 04-30-2022 SUTURE,LIGA CLIP MED LT200 FDA Start: 04-30-2022 SUTURE,LIGA CLIP SM LT-100 FDA Start: 04-30-2022 SUTURE,LIGA CLIP SM LT-100 FDA Start: 04-30-2022 SUTURE,LIGA CLIP SM LT-100 FDA Start: 04-30-2022 SUTURE,LIGA CLIP MED LT200 FDA Start: 04-30-2022 SUTURE,LIGA CLIP SM LT-100 FDA Start: 04-30-2022 SUTURE,LIGA CLIP SM LT-100 FDA Start: 04-30-2022 SUTURE,LIGA CLIP SM LT-100 FDA Start: 04-30-2022 SUTURE,LIGA CLIP MED LT200 FDA Start: 04-30-2022 SUTURE,LIGA CLIP SM LT-100 FDA Start: 04-30-2022 SUTURE,LIGA CLIP SM LT-100 FDA Start: 04-30-2022 SUTURE,LIGA CLIP SM LT-100 FDA Start: 04-30-2022 SUTURE,LIGA CLIP MED LT200 FDA Start: 04-30-2022 SUTURE,LIGA CLIP SM LT-100 FDA Start: 04-30-2022 SUTURE,LIGA CLIP SM LT-100 FDA Start: 04-30-2022 SUTURE,LIGA CLIP SM LT-100 FDA Start: 04-30-2022 SUTURE,LIGA CLIP MED LT200 FDA Start: 04-30-2022 SUTURE,LIGA CLIP SM LT-100 FDA Start: 04-30-2022 SUTURE,LIGA CLIP SM LT-100 FDA Start: 04-30-2022 SUTURE,LIGA CLIP SM LT-100 FDA Start: 04-30-2022 SUTURE,LIGA CLIP MED LT200 FDA Start: 04-30-2022 SUTURE,LIGA CLIP SM LT-100 FDA Start: 04-30-2022 SUTURE,LIGA CLIP SM LT-100 FDA Start: 04-30-2022 SUTURE,LIGA CLIP SM LT-100 FDA Start: 04-30-2022 SUTURE,LIGA CLIP MED LT200 FDA Start: 04-30-2022 SUTURE,LIGA CLIP SM LT-100 FDA Start: 04-30-2022 SUTURE,LIGA CLIP SM LT-100 FDA Start: 04-30-2022 SUTURE,LIGA CLIP SM LT-100 FDA Start: 04-30-2022 FDA Start: 04-30-2022 FDA Start: 04-30-2022 FDA Start: 04-30-2022 FDA Start: 04-30-2022 SUTURE,LIGA CLIP MED LT200 FDA Start: 04-30-2022 SUTURE,LIGA CLIP SM LT-100 FDA Start: 04-30-2022 SUTURE,LIGA CLIP SM LT-100 FDA Start: 04-30-2022 SUTURE,LIGA CLIP SM LT-100 FDA Start: 04-30-2022 SUTURE,LIGA CLIP MED LT200 FDA Start: 04-30-2022 SUTURE,LIGA CLIP SM LT-100 FDA Start: 04-30-2022 SUTURE,LIGA CLIP SM LT-100 FDA Start: 04-30-2022 SUTURE,LIGA CLIP SM LT-100 FDA Start: 04-30-2022 SUTURE,LIGA CLIP MED LT200 FDA Start: 04-30-2022 SUTURE,LIGA CLIP SM LT-100 FDA Start: 04-30-2022 SUTURE,LIGA CLIP SM LT-100 FDA Start: 04-30-2022 SUTURE,LIGA CLIP SM LT-100 FDA Start: 04-30-2022 SUTURE,LIGA CLIP MED LT200 FDA Start: 04-30-2022 SUTURE,LIGA CLIP SM LT-100 FDA Start: 04-30-2022 SUTURE,LIGA CLIP SM LT-100 FDA Start: 04-30-2022 SUTURE,LIGA CLIP SM LT-100 FDA Start: 04-30-2022 SUTURE,LIGA CLIP MED LT200 FDA Start: 04-30-2022 SUTURE,LIGA CLIP SM LT-100 FDA Start: 04-30-2022 SUTURE,LIGA CLIP SM LT-100 FDA Start: 04-30-2022 SUTURE,LIGA CLIP SM LT-100 FDA Start: 04-30-2022 SUTURE,LIGA CLIP MED LT200 FDA Start: 04-30-2022 SUTURE,LIGA CLIP SM LT-100 FDA Start: 04-30-2022 SUTURE,LIGA CLIP SM LT-100 FDA Start: 04-30-2022 SUTURE,LIGA CLIP SM LT-100 FDA Start: 04-30-2022 SUTURE,LIGA CLIP MED LT200 FDA Start: 04-30-2022 SUTURE,LIGA CLIP SM LT-100 FDA Start: 04-30-2022 SUTURE,LIGA CLIP SM LT-100 FDA Start: 04-30-2022 SUTURE,LIGA CLIP SM LT-100 FDA Start: 04-30-2022 Goals Date Patient Goal Desired Activity /State Functional Status Date Assessment Result Facility 07-17-2022 Functional status Chair [facility] Work Phone: 07-17-2022 Functional status Standby Assist [facility] Work Phone: 07-07-2022 Functional status Chair [facility] Work Phone: 07-06-2022 Functional status Well [facility] Work Phone: 06-06-2022 Functional status Ambulates;Up ad emely [facility] Work Phone: 05-23-2022 Functional status Ambulates [facility] Work Phone: 05-18-2022 Functional status Chair [facility] Work Phone: Mental Status Date Assessment Result Facility 09-10-2023 Cognitive function Level Of Cons ciousness Awake;Alert;Appropriate;Follow s Commands;Responds to vocal stimuli [facility] Work Phone: 07-17-2022 Cognitive function Voice/Name [facility] Work Phone: 07-13-2022 Cognitive function Level Of Cons ciousness Awake;Alert;Appropriate [facility] Work Phone: 07-07-2022 Cognitive function Voice/Name [facility] Work Phone: 07-02-2022 Cognitive function Level Of Cons ciousness Awake;Alert;Appropriate;Follow s Commands [facility] Work Phone: 06-06-2022 Cognitive function Voice/Name [facility] Work Phone: 05-23-2022 Cognitive function Voice/Name [facility] Work Phone: 05-18-2022 Cognitive function Voice/Name [facility] Work Phone: 05-14-2022 Cognitive function Level Of Cons ciousness Awake;Alert;Appropriate [facility] Work Phone: 04-30-2022 Cognitive function Voice/Name [facility] Work Phone: Clinical Notes 08-24-2020 to 12-16-2024 Note Date & Type Note Facility 12-16-2024 Evaluation note Diagnosis Onset Date Resolution Chest pain acute December 16, 2024 1:29pm Edema acute December 16, 2024 1:29pm HLD (hyperlipidemia) acute December 16, 2024 1:29pm (HFpEF) heart failure with preserved ejection fraction chronic December 16, 2024 1 :29pm Hypertension chronic December 16 1:29pm Left carotid artery stenosis chronic December 16, 2024 1 :29pm ABDI (obstructive sleep apnea) chronic December 16, 2024 1 :29pm [facility] Work Phone: 1(946) 246-950103-20-2025 Radiology Diagnostic study note [facility] [address] [place] [address] Abdomen without IV Contrast MR#: [id number] Acct: [id number] Name: DEBBIE MIRELES Rep #: [id number] : 1935 F 89 From: Contreras Hernandez MD PCP: Dr. Martina Lal DO Status: RE G CLI Study:Abdomen without IV Contrast Date of Exa m: 10/07/24 Exam# [id number] Ordering Dr: Saul Lal DO PROCEDURE: ABDOMEN WITHOUT IV CONTRAST 10/07/2024 REASON FOR EXAM: History of adrenal mass. TECHNIQUE: Abdomen CT with intravenous contrast. Coronal and Sagittal reconstruction serieswere provided. One or more dose reduction techniques were used (e.g., Automated exposure control, adjustment of the mA and/or kV according to patient size, use of iterative reconstruction technique. PATIENT PREPARATION: Per protocol ORAL CONTRAST TYPE: None. CONTRAST: No IV contrast. RADIATION DOSE SUMMARY: CTDlvol: 22.49 mGy DLP: 840.78 mGycm COMPARISON: Comparison is made with prior study dated July 13, 2000 22. FINDINGS: Lung bases: Mild dependent atelectasis Liver: Normal size. No mass. Gallbladder: Surgically absent. Spleen: Normal size. Pancreas: Normal size without evidence of mass surrounding inflammation or ductal dilation. Adrenals: Left adrenal nodule consistent with an adenoma this measures 2.1 cm. This is unchanged. Kidneys: Stable marked atrophy of the left kidney. Stable cysts in the right kidney. Bowel: Sigmoid diverticulosis. Small hiatal hernia. Prior anterior ventral hernia repair with a mesh. Residual fat containing lower anterior abdominal wall hernia. Lymph nodes: Unremarkable. Vasculature: Diffuse atherosclerotic plaque formation of the abdominal aorta andthe major visceral branches. Peritoneum / Retroperitoneum: Unremarkable. Bones: Degenerative changes of the spine. CT/Abdomen without IV Contrast IMPRESSION: Stable appearance of the left adrenal gland. Marked atrophy of the left kidney. Stable cysts in the right kidney. Status post cholecystectomy. Prior anterior abdominal hernia repair with a mesh with residual anterior lower abdominal wall fat containing hernia. Reading Location: [facility] CC: Dr. Martina Lal, DO ~ Assistant Project Manager: Signed [facility]01-20-2025 Evaluation note* Diagnosis Onset Date Resolution Status Admit Date Left carotid artery stenosis chronic August 09, 2024 3:33pm HLD (hyperlipidemia) acute [place] 2024 12:48pm (HFpEF) heart failure with preserved ejection fraction chronic 2024 12:48pm Hypertension chronic July 12:48pm Left carotid artery stenosis chronic August 17, 2024 12:48pm ABDI (obstructive sleep apnea) chroni c August 17, 2024 12:48pm [facility] Work Phone: 1(378) 591-880311-21-2022 Instructions* Name Dates Details Patient Instructions Start:10-Jun-2022 Instruction Type:Provider Instructions for Treatment How to Access Health Informa tion Online using Patient Portal and Informaat Apps Start:10-Jun-2022 Instruction Type:Patient Education Patient Instructions Start:10-May-2022 Instruction Type:Provider Instructions for Treatment How to Access Health Informa tion Online using Patient Portal and Informaat Apps Start:10-May-2022 Instruction Type:Patient Education Patient Instructions Indication:Nonsmoker Start:14-Mar-2022 Instruction Type:Provider Instructions for Treatment How to Access Health Informa tion Online using Patient Portal and Informaat Apps Indication:Nonsmoker Start:14-Mar-2022 Instruction Type:Patient Education Patient Instructions Indication:Nonsmoker Start:07-Mar-2022 Instruction Type:Provider Instructions for Treatment How to Access Health Informa tion Online using Patient Portal and 3rd Republican Apps Indication:Nonsmoker Start:07-Mar-2022 Instruction Type:Patient Education Patient Instructions Indication:Morbid obesity Start:18-Feb-2022 Instruction Type:Provider Instructions for Treatment How to Access Health Informa tion Online using Patient Portal and 3rd Republican Apps Indication:Morbid obesity Start:18-Feb-2022 Instruction Type:Patient Education Patient Instructions Indication:Morbid obesity Start:31-Dec-2021 Instruction Type:Provider Instructions for Treatment How to Access Health Informa tion Online using Patient Portal and 3rd Republican Apps Indication:Morbid obesity Start:31-Dec-2021 Instruction Type:Patient Education Patient Instructions Indication:BMI 40.0-44.9, adult Start:17-Oct-2021 Instruction Type:Provider Instructions for Treatment How to Access Health Informa tion Online using Patient Portal and 3rd Republican Apps Indication:BMI 40.0-44.9, adult Start:17-Oct-2021 Instruction Type:Patient Education Patient Instructions Indication:BMI 40.0-44.9, adult Start:10-Oct-2021 Instruction Type:Provider Instructions for Treatment How to Access Health Informa tion Online using Patient Portal and 3rd Republican Apps Indication:BMI 40.0-44.9, adult Start:10-Oct-2021 Instruction Type:Patient Education Patient Instructions Indication:Cellulitis Start:03-Oct-2021 Instruction Type:Provider Instructions for Treatment Patient Instructions Indication:BMI 40.0-44.9, adult Start:26-Sep-2021 Instruction Type:Provider Instructions for Treatment How to Access Health Informa tion Online using Patient Portal and 3rd Republican Apps Indication:BMI 40.0-44.9, adult Start:26-Sep-2021 Instruction Type:Patient Education Patient Instructions Indication:Nonsmoker Start:10-Aug-2021 Instruction Type:Provider Instructions for Treatment How to Access Health Informa tion Online using Patient Portal and 3rd Republican Apps Indication:Hypertension Start:10-Aug-2021 Instruction Type:Patient Education Patient Instructions Indication:BMI 40.0-44.9, adult Start:09-Aug-2021 Instruction Type:Provider Instructions for Treatment How to Access Health Informa tion Online using Patient Portal and 3rd Republican Apps Indication:BMI 40.0-44.9, adult Start:09-Aug-2021 Instruction Type:Patient Education Patient Instructions Indication:Nonsmoker Start:28-May-2021 Instruction Type:Provider Instructions for Treatment How to Access Health Informa tion Online using Patient Portal and 3rd Republican Apps Indication:Nonsmoker Start:28-May-2021 Instruction Type:Patient Education Patient Instructions Indication:BMI 40.0-44.9, adult Start:04-Apr-2021 Instruction Type:Provider Instructions for Treatment How to Access Health Informa tion Online using Patient Portal and 3rd Republican Apps Indication:BMI 40.0-44.9, adult Start:04-Apr-2021 Instruction Type:Patient Education Patient Instructions Indication:BMI 40.0-44.9, adult Start:20-Mar-2021 Instruction Type:Provider Instructions for Treatment How to Access Health Informa tion Online using Patient Portal and 3rd Republican Apps Indication:BMI 40.0-44.9, adult Start:20-Mar-2021 Instruction Type:Patient Education Patient Instructions Indication:Type 2 diabetes mellitus Start:13-Dec-2020 Instruction Type:Provider Instructions for Treatment How to Access Health Informa tion Online using Patient Portal and 3rd Republican Apps Indication:Type 2 diabetes mellitus Start:13-Dec-2020 Instruction Type:Patient Education Patient Instructions Indication:Type 2 diabetes mellitus Start:15-Sep-2020 Instruction Type:Provider Instructions for Treatment How to Access Health Informa tion Online using Patient Portal and 3rd Republican Apps Indication:Type 2 diabetes mellitus Start:15-Sep-2020 Instruction Type:Patient Education [facility] Work Phone: 1(982) 630-585609-08-2021 NotePatient Outreach (PADMAJANAPamela) DEBBIE MIRELES ([id number]) 1935 F Date Time Provider Department 03/28/21 CELIO GALEANO During your visit today, we recorded the following information about you: Celio Galeano MA 03/28/2021 10:29 AM Signed POPULATION HEALTH NAVIGATION OUTREACH Action/FYI Patient is on [facility] list for below gaps : I77.9 - Carotid arterial disease (HCC) - [id number] Last Billed 04/12/2020 patient also due for : Well exam DILATED RETINAL EXAM URINE ALBUMIN:CREATININE RATIO ADVANCE DIRECTIVE DISCUSSION HBA1C INFLUENZA(1) Spoke to pt- states she has changed her PCP- would not disclose name- PCP field updated Contact made with patient or family member? YES Pt identified by name and : YES Outreach Outcome/Action Spoke to patient or caregiver: PCP confirmed / updated Patient declined Reason for Outreach HCC or suspected condition Payer: Payor: [employer] MEDICARE / Plan: [employer] / Product Type: HMO / Allergies As of Date: 03/28/2021 Noted Allergy Reaction DEMEROL (MEPERIDINE (PF)) 07/11/2005 1 - Mental Status Change LEVAQUIN (LEVOFLOXACIN) 08/11/2014 8 - GI Upset MORPHINE 01/28/2018 11 - Vomiting Date Reviewed: 12/14/2019 Reviewed by: Shannon Magallanes Ma - Fully Assessed Reason for Visit: Population Health Navigation Outreach [3910] Cmt: [facility] Prescriptions as of 03/28/2021 - nateglinide (STARLIX) 60 mg tablet Take 1 tablet by mouth three times daily before meals. - metoprolol succinate ER (TOPROL XL) 50 mg 24 hr tablet Take 1 tablet by mouth once daily. - cyclobenzaprine (FLEXERIL) 10 mg tablet Take 0.5 tablets by mouth three times daily as needed for Muscle Spasm. - nystatin (MYCOSTATIN) 100,000 unit/mL suspension Take 5 mL by mouth four times daily. 1tsp swish in mouth for several minutes, then swallow (or expectorate) 4 times daily until gone. - lisinopril (ZESTRIL, PRINIVIL) 20 mg tablet Take 1 tablet by mouth once daily. - MAGNESIUM ORAL Take by mouth. - COMPOUNDED PRESCRIPTION Artery Cleanse - COMPOUNDED PRESCRIPTION Card[facility] [place] Healthy heart/arteries - OMEGA 4-FBV-RRQ-OTHER OM3-D3 ORAL Take by mouth. - aspirin, enteric coated (ASPIRIN, ENTERIC COATED) 81 mg EC tablet Take 81 mg by mouth every other day. - Cinnamon Bark (CINNAMON) 500 mg ORAL Cap Take 1 capsule by mouth once daily. - ascorbic acid (VITAMIN C) 500 mg ORAL tablet Take 1 tablet by mouth once daily. - calcium-vitamin D 500 mg(1,250mg) -200 unit ORAL per tablet Take one(1) tablet daily. - cimetidine(TAGAMET 300 MG TAB) Take one(1) tablet daily. - XALATAN 0.005 % EYE DROPS one drop both eyes q hs Problem List As Of Date 03/28/2021 Noted Resolved DERMATOPHYTOSIS OF NAIL [B35.1] 05/30/2005 LUMBAGO [M54.5] PERS HX COLONIC POLYPS [Z86.010] DIVERTICULOSIS OF COLON W/O BLEED [K57.30] Unspecified hemorrhoids without mention of comp* 03/14/2016 BENIGN HYPERTENSION [I10] 07/31/2007 CEREBR ART OCCL UNSPEC W INFARCT [I63.50] 07/31/2007 Mixed hyperlipidemia [E78.2] 08/03/2007 Impaired fasting glucose [R73.01] 09/01/2008 11/22/2014 Onychia and paronychia of toe [L03.039] 08/17/2010 09/26/2016 Ingrowing nail [L60.0] 09/07/2010 09/26/2016 Benign paroxysmal positional vertigo [H81.10] 10/17/2011 Dizziness [R42] 10/17/2011 09/26/2016 Neuropathy [G62.9] 02/12/2013 Diabetes mellitus (HCC) [E11.9] 12/09/2013 02/08/2014 Family history of colon cancer [Z80.0] 12/09/2013 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 04/12/2020 Carotid arterial disease (HCC) [I77.9] 07/07/2014 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] 02/08/2015 08/16/2019 Pain in right hip [M25.551] 02/08/2015 08/16/2019 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 Author Type: Fitter Tacker Type: Progress Notes Filed: 03/28/2021 10:29 AM Note Text: POPULATION HEALTH NAVIGATION OUTREACH Action/FYI Patient is on [facility] list for below gaps : I77.9 - Carotid arterial disease (HCC) - [id number] Last Billed 04/12/2020 patient also due for : Well exam DILATED RETINAL EXAM URINE ALBUMIN:CREATININE RATIO ADVANCE DIRECTIVE DISCUSSION HBA1C INFLUENZA(1) Spoke to pt- states she has changed her PCP- would not disclose name- PCP field updated Contact made with patient or family member? YES Pt identified by name and : YES Outreach Outcome/Action Spoke to patient or caregiver: PCP confirmed / updated Patient declined Reason for Outreach HCC or suspected condition Payer: Payor: [employer] MEDICARE / Plan: [employer] / Product Type: HMO /[facility]02-04-2021 NoteHNO ID: [id number] Author: Philip Kumar Service: ? Author Type: Physician Type: Progress Notes Filed: 08/24/2020 10:09 AM Note Text: Patient presents with: Follow Up HPI:This Team Access Model visit is a phone encounter. It required patient-provider interaction for the medical decision making as documented below. Patient was offered a virtual/telemedicine appointment in lieu of an office visit due to recommendations to reduce patient exposure to COVID-19. Patient is aware of limitations of performing the visit without a face to face visit in the office setting and agrees. DM:last hba1c was 6.3. HYPERTENSION:no issues with meds. Discussed issues with covid treatment and prevention with various supplements. Discussed that none of those are currently approved. Discussed that we are not yet able to use these. Her daughter has been doing research in alternative medicine circles and wanted to discuss things like hydroxychlorquine, ivermectin, asa, and even getting an nebulizer and having her breathe in peroxide. I encouraged her to stay away from any non studied or safe treatments. Has been having increased hearing issues. Does have hearing aids. MEDICATIONS: Current Outpatient Medications Medication Sig - nateglinide (STARLIX) 60 mg tablet Take 1 tablet by mouth three times daily before meals. - metoprolol succinate ER (TOPROL XL) 50 mg 24 hr tablet Take 1 tablet by mouth once daily. - cyclobenzaprine (FLEXERIL) 10 mg tablet Take 0.5 tablets by mouth three times daily as needed for Muscle Spasm. - nystatin (MYCOSTATIN) 100,000 unit/mL suspension Take 5 mL by mouth four times daily. 1tsp swish in mouth for several minutes, then swallow (or expectorate) 4 times daily until gone. - lisinopril (ZESTRIL, PRINIVIL) 20 mg tablet Take 1 tablet by mouth once daily. - MAGNESIUM ORAL Take by mouth. - COMPOUNDED PRESCRIPTION Artery Cleanse - COMPOUNDED PRESCRIPTION Cardio [place] Healthy heart/arteries - OMEGA 5-UQL-XYR-OTHER OM3-D3 ORAL Take by mouth. - aspirin, enteric coated (ASPIRIN, ENTERIC COATED) 81 mg EC tablet Take 81 mg by mouth every other day. - Cinnamon Bark (CINNAMON) 500 mg ORAL Cap Take 1 capsule by mouth once daily. - ascorbic acid (VITAMIN C) 500 mg ORAL tablet Take 1 tablet by mouth once daily. - calcium-vitamin D 500 mg(1,250mg) -200 unit ORAL per tablet Take one(1) tablet daily. - cimetidine(TAGAMET 300 MG TAB) Take one(1) tablet daily. - XALATAN 0.005 % EYE DROPS one drop [...] Bilateral 12 - COLONOSCOP W/ OR W/O RUST SPEC 03/26/02 Colonoscopy - COLONOSCOP W/ OR W/O RUST SPEC 05/18/2008 Colonoscopy - COLONOSCOP W/ OR W/O RUST SPEC 01/13/14 Colonoscopy - REMOVAL GALLBLADDER 97 [...] lung - Cancer Brother pancrease Social History Tobacco Use - Smoking status: Never Smoker - Smokeless tobacco: Never Used Substance Use Topics - Alcohol use: No - Drug use: No Reviewed current medications, allergies, past medical history, surgical history, family history and social history today. REVIEW OF SYSTEMS All other reviewed and negative other than HPI. VITALS: There were no vitals taken for this visit. Last 4 Encounter Wt Readings: Date: Wt: 04/12/2020 108.4 kg (239 lb) 12/14/2019 106.6 kg (235 lb) 05/13/2019 105.7 kg (233 lb) 02/11/2019 105.2 kg (232 lb) PHYSICAL EXAMINATION: Patient is alert and oriented during visit. Answers appropriately. ASSESSMENT/PLAN: 1. Type 2 diabetes mellitus with peripheral neuropathy (HCC) - ICD9: 250.60, 357.2, ICD10: E11.42 (primary diagnosis) - Keep next appt. Discussed avoiding Fringe treatments. Red flags for re-assessment reviewed with patient in detail. (more content not included)... [facility] Work Phone: Evaluation note* Diagnosis Onset Date Resolution Status BMI 40.0-44.9, adult acute ABDI (obstructive sleep apnea) acute [facility] Work Phone: Evaluation note* Diagnosis Onset Date Resolution Status Recurrent incisional hernia with incarceration acute Right flank pain acute [facility] Work Phone: Evaluation note* Diagnosis Onset Date Resolution Status Recurrent incisional hernia with incarceration acute Right flank pain acute Abnormal ultrasound of breast acute [facility] Work Phone: Evaluation note* Diagnosis Onset Date Resolution Status Recurrent incisional hernia with incarceration acute Right flank pain acute Abnormal ultrasound of breast acute Breast cancer, right breast 2021 acute [facility] Work Phone: Evaluation note* Diagnosis Onset Date Resolution Status Recurrent incisional hernia with incarceration acute Right flank pain acute Abnormal ultrasound of breast acute Breast cancer, right breast 2021 acute Seroma, postoperative acute [facility] Work Phone: Evaluation note* Diagnosis Onset Date Resolution Status Recurrent incisional hernia with incarceration acute Right flank pain acute Abnormal ultrasound of breast acute Breast cancer, right breast 2021 acute Seroma, postoperative acute Seroma, postoperative acute Abnormal urinalysis acute Cellulitis of breast acute Hypertensive urgency acute Leukocytosis acute Seroma, postoperative acute [facility] Work Phone: Evaluation note* Diagnosis Onset Date Resolution Status Recurrent incisional hernia with incarceration acute Right flank pain acute Abnormal ultrasound of breast acute Breast cancer, right breast 2021 acute Seroma, postoperative acute Seroma, postoperative acute Abnormal urinalysis acute Breast abscess acute Cellulitis of breast acute Hypertensive urgency acute Infected seroma, postoperative acute Leukocytosis acute Seroma, postoperative acute CHF (congestive heart failure) acute Hypoxemia acute Hypertension chronic [facility] Work Phone: Evaluation note* Diagnosis Onset Date Resolution Status Recurrent incisional hernia with incarceration acute Right flank pain acute Abnormal ultrasound of breast acute Breast cancer, right breast 2021 acute Seroma, postoperative resolv ed Seroma, postoperative resolv ed Abnormal urinalysis resolved Cellulitis of breast resolve d Hypertensive urgency resolve d Leukocytosis resolved Seroma, postoperative resolv ed Abnormal cardiac enzyme level acute Acute respiratory failure with hypoxia acute Breast cancer, right breast 2021 acute CHF (congestive heart failure) acute HLD (hyperlipidemia) acute Hypertensive urgency acute Hypoxemia acute Hypertension chronic Stage 3a chronic kidney disease (CKD) chronic Cellulitis of breast resolve d Seroma, postoperative resolv ed [facility] Work Phone: Evaluation note* Diagnosis Onset Date Resolution Status Recurrent incisional hernia with incarceration acute Right flank pain acute Abnormal ultrasound of breast acute Seroma, postoperative resolv ed Seroma, postoperative resolv ed Abnormal urinalysis resolved Cellulitis of breast resolve d Hypertensive urgency resolve d Leukocytosis resolved Seroma, postoperative resolv ed HLD (hyperlipidemia) acute Cellulitis of breast resolve d Hypertensive urgency resolve d Hypoxemia resolved Seroma, postoperative resolv ed Acute diastolic congestive heart failure acute Acute kidney injury acute Acute respiratory failure with hypoxia acute Breast abscess acute Debility acute Diabetes mellitus acute Glaucoma acute Pain around toenail, left foot acute Pain around toenail, right foot acute Tinea unguium acute Chronic kidney disease, stage 3a chronic Hypertension chronic Diastolic congestive heart failure acute Hypertension [facility] Work Phone: Evaluation note* Diagnosis Onset Date Resolution Status Recurrent incisional hernia with incarceration acute Right flank pain acute Breast cancer, right breast 2021 acute Seroma, postoperative resolv ed Seroma, postoperative resolv ed Abnormal urinalysis resolved Cellulitis of breast resolve d Hypertensive urgency resolve d Leukocytosis resolved Seroma, postoperative resolv ed Breast cancer, right breast 2021 acute HLD (hyperlipidemia) acute Cellulitis of breast resolve d Hypertensive urgency resolve d Hypoxemia resolved Seroma, postoperative resolv ed Debility acute Diabetes mellitus acute Glaucoma acute Chronic kidney disease, stage 3a chronic Hypertension chronic Acute diastolic congestive heart failure resolved Acute kidney injury resolved Acute respiratory failure with hypoxia resolved Breast abscess resolved Pain around toenail, left foot resolved Pain around toenail, right foot resolved Tinea unguium resolved Diastolic congestive heart failure acute Hypertension chronic Breast abscess resolved Breast cancer, right breast 2021 acute Left adrenal mass [facility] Work Phone: Evaluation note* Diagnosis Onset Date Resolution Status Recurrent incisional hernia with incarceration acute Right flank pain acute Breast cancer, right breast 2021 acute Seroma, postoperative resolv ed Seroma, postoperative resolv ed Abnormal urinalysis resolved Cellulitis of breast resolve d Hypertensive urgency resolve d Leukocytosis resolved Seroma, postoperative resolv ed Breast cancer, right breast 2021 acute HLD (hyperlipidemia) acute Cellulitis of breast resolve d Hypertensive urgency resolve d Hypoxemia resolved Seroma, postoperative resolv ed Debility acute Diabetes mellitus acute Glaucoma acute Chronic kidney disease, stage 3a chronic Hypertension chronic Acute diastolic congestive heart failure resolved Acute kidney injury resolved Acute respiratory failure with hypoxia resolved Breast abscess resolved Pain around toenail, left foot resolved Pain around toenail, right foot resolved Tinea unguium resolved Diastolic congestive heart failure acute ABDI (obstructive sleep apnea) acute Bilateral carotid artery stenosis chronic Chronic kidney disease, stage 3a chronic Hypertension chronic Breast abscess resolved Breast cancer, right breast 2021 acute Left adrenal mass chronic Breast cancer, right breast 2021 acute Encounter for education acut e Left adrenal mass chronic [facility] Work Phone: Evaluation note* Diagnosis Onset Date Resolution Status Recurrent incisional hernia with incarceration acute Right flank pain acute Breast cancer, right breast 2021 acute Seroma, postoperative resolv ed Seroma, postoperative resolv ed Abnormal urinalysis resolved Cellulitis of breast resolve d Hypertensive urgency resolve d Leukocytosis resolved Seroma, postoperative resolv ed Breast cancer, right breast 2021 acute HLD (hyperlipidemia) acute Cellulitis of breast resolve d Hypertensive urgency resolve d Hypoxemia resolved Seroma, postoperative resolv ed Debility acute Diabetes mellitus acute Glaucoma acute Chronic kidney disease, stage 3a chronic Hypertension chronic Acute diastolic congestive heart failure resolved Acute kidney injury resolved Acute respiratory failure with hypoxia resolved Breast abscess resolved Pain around toenail, left foot resolved Pain around toenail, right foot resolved Tinea unguium resolved Diastolic congestive heart failure acute ABDI (obstructive sleep apnea) acute Bilateral carotid artery stenosis chronic Chronic kidney disease, stage 3a chronic Hypertension chronic Breast abscess resolved Breast cancer, right breast 2021 acute Left adrenal mass chronic Breast cancer, right breast 2021 acute Encounter for education acut e Left adrenal mass chronic Hypoxia acute Labile blood pressure acute Nausea acute Shakiness acute [facility] Work Phone: Evaluation note* Diagnosis Onset Date Resolution Status Recurrent incisional hernia with incarceration acute Right flank pain acute Breast cancer, right breast 2021 acute Seroma, postoperative resolv ed Seroma, postoperative resolv ed Abnormal urinalysis resolved Cellulitis of breast resolve d Hypertensive urgency resolve d Leukocytosis resolved Seroma, postoperative resolv ed Breast cancer, right breast 2021 acute HLD (hyperlipidemia) acute Cellulitis of breast resolve d Hypertensive urgency resolve d Hypoxemia resolved Seroma, postoperative resolv ed Debility acute Diabetes mellitus acute Glaucoma acute Chronic kidney disease, stage 3a chronic Hypertension chronic Acute diastolic congestive heart failure resolved Acute kidney injury resolved Acute respiratory failure with hypoxia resolved Breast abscess resolved Pain around toenail, left foot resolved Pain around toenail, right foot resolved Tinea unguium resolved Diastolic congestive heart failure acute ABDI (obstructive sleep apnea) acute Bilateral carotid artery stenosis chronic Chronic kidney disease, stage 3a chronic Hypertension chronic Breast abscess resolved Breast cancer, right breast 2021 acute Left adrenal mass chronic Breast cancer, right breast 2021 acute Encounter for education acut e Left adrenal mass chronic MALATHI (acute kidney injury) ac solomon Bradycardia acute Diastolic congestive heart failure acute HLD (hyperlipidemia) acute Hypoxia acute Labile blood pressure acute Nausea acute Shakiness acute Uncontrolled hypertension ac solomon Chronic kidney disease, stage 3a chronic Hypertension chronic Bradycardia acute Diastolic congestive heart failure acute ABDI (obstructive sleep apnea) acute Bilateral carotid artery stenosis chronic Chronic kidney disease, stage 3a chronic Hypertension chronic Debility acute Hypercalcemia acute Left adrenal mass acute Prerenal azotemia acute Chronic kidney disease, stage 3a chronic [facility] Work Phone: Evaluation note* Diagnosis Onset Date Resolution Status Breast cancer, right breast 2021 acute Seroma, postoperative resolv ed Seroma, postoperative resolv ed Abnormal urinalysis resolved Cellulitis of breast resolve d Hypertensive urgency resolve d Leukocytosis resolved Seroma, postoperative resolv ed Breast cancer, right breast 2021 acute Cellulitis of breast resolve d Hypertensive urgency resolve d Hypoxemia resolved Seroma, postoperative resolv ed Debility acute Diabetes mellitus acute Glaucoma acute Acute diastolic congestive heart failure resolved Acute kidney injury resolved Acute respiratory failure with hypoxia resolved Breast abscess resolved Pain around toenail, left foot resolved Pain around toenail, right foot resolved Tinea unguium resolved ABDI (obstructive sleep apnea) acute Bilateral carotid artery stenosis chronic Breast abscess resolved Breast cancer, right breast 2021 acute Left adrenal mass chronic Breast cancer, right breast 2021 acute Encounter for education acut e Left adrenal mass chronic MALATHI (acute kidney injury) re solved Bradycardia resolved Nausea resolved ABDI (obstructive sleep apnea) acute Bilateral carotid artery stenosis chronic Bradycardia resolved MALATHI (acute kidney injury) ac solomon Debility acute FTT (failure to thrive) in adult acute Hypercalcemia acute Labile blood pressure acute Left adrenal mass acute Nocturnal hypoxia acute Prerenal azotemia acute [facility] Work Phone: Evaluation note* Diagnosis Onset Date Resolution Status Breast cancer, right breast 2021 acute Seroma, postoperative resolv ed Seroma, postoperative resolv ed Abnormal urinalysis resolved Cellulitis of breast resolve d Hypertensive urgency resolve d Leukocytosis resolved Seroma, postoperative resolv ed Breast cancer, right breast 2021 acute Cellulitis of breast resolve d Hypertensive urgency resolve d Hypoxemia resolved Seroma, postoperative resolv ed Debility acute Diabetes mellitus acute Glaucoma acute Acute diastolic congestive heart failure resolved Acute kidney injury resolved Acute respiratory failure with hypoxia resolved Breast abscess resolved Pain around toenail, left foot resolved Pain around toenail, right foot resolved Tinea unguium resolved ABDI (obstructive sleep apnea) acute Bilateral carotid artery stenosis chronic Breast abscess resolved Breast cancer, right breast 2021 acute Left adrenal mass chronic Breast cancer, right breast 2021 acute Encounter for education acut e Left adrenal mass chronic MALATHI (acute kidney injury) re solved Bradycardia resolved Nausea resolved ABDI (obstructive sleep apnea) acute Bilateral carotid artery stenosis chronic Bradycardia resolved Debility acute FTT (failure to thrive) in adult acute Labile blood pressure acute Nocturnal hypoxia acute MALATHI (acute kidney injury) re solved Hypercalcemia resolved Prerenal azotemia resolved BMI 40.0-44.9, adult acute ABDI (obstructive sleep apnea) [facility] Work Phone: Evaluation note* Diagnosis Onset Date Resolution Status Seroma, postoperative resolv ed Seroma, postoperative resolv ed Abnormal urinalysis resolved Cellulitis of breast resolve d Hypertensive urgency resolve d Leukocytosis resolved Seroma, postoperative resolv ed Breast cancer, right breast 2021 acute Cellulitis of breast resolve d Hypertensive urgency resolve d Hypoxemia resolved Seroma, postoperative resolv ed Debility acute Diabetes mellitus acute Glaucoma acute Acute diastolic congestive heart failure resolved Acute kidney injury resolved Acute respiratory failure with hypoxia resolved Breast abscess resolved Pain around toenail, left foot resolved Pain around toenail, right foot resolved Tinea unguium resolved ABDI (obstructive sleep apnea) acute Bilateral carotid artery stenosis chronic Breast abscess resolved Breast cancer, right breast 2021 acute Left adrenal mass chronic Breast cancer, right breast 2021 acute Encounter for education acut e Left adrenal mass chronic MALATHI (acute kidney injury) re solved Bradycardia resolved Nausea resolved ABDI (obstructive sleep apnea) acute Bilateral carotid artery stenosis chronic Bradycardia resolved Debility acute FTT (failure to thrive) in adult acute Labile blood pressure acute Nocturnal hypoxia acute MALATHI (acute kidney injury) re solved Hypercalcemia resolved Prerenal azotemia resolved BMI 40.0-44.9, adult acute ABDI (obstructive sleep apnea) [facility] Work Phone: Evaluation note* Diagnosis Onset Date Resolution Status MALATHI (acute kidney injury) re solved Bradycardia resolved Nausea resolved ABDI (obstructive sleep apnea) acute Bilateral carotid artery stenosis chronic Bradycardia resolved Debility acute FTT (failure to thrive) in adult acute Labile blood pressure acute Nocturnal hypoxia acute MALATHI (acute kidney injury) re solved Hypercalcemia resolved Prerenal azotemia resolved BMI 40.0-44.9, adult acute ABDI (obstructive sleep apnea) acute Left adrenal mass chronic ABDI (obstructive sleep apnea) acute Bilateral carotid artery stenosis chronic BMI 40.0-44.9, adult acute ABDI (obstructive sleep apnea) acute [facility] Work Phone: Evaluation note* Diagnosis Onset Date Resolution Status Left adrenal mass chronic ABDI (obstructive sleep apnea) acute Bilateral carotid artery stenosis chronic BMI 40.0-44.9, adult acute ABDI (obstructive sleep apnea) acute [facility] Work Phone: Evaluation note* Diagnosis Onset Date Resolution Status (HFpEF) heart failure with preserved ejection fraction chronic Bilateral carotid artery stenosis chronic Diabetes mellitus chronic Hypertension [facility] Work Phone: Evaluation note* Diagnosis Onset Date Resolution Status (HFpEF) heart failure with preserved ejection fraction chronic Bilateral carotid artery stenosis chronic Diabetes mellitus chronic Hypertension chronic Left carotid artery stenosis acute [facility] Work Phone: Evaluation note* Diagnosis Onset Date Resolution Status Left carotid artery stenosis acute Obesity chronic ABDI (obstructive sleep apnea) chronic [facility] Work Phone: Evaluation note* Diagnosis Onset Date Resolution Status Obesity chronic ABDI (obstructive sleep apnea) [facility] Work Phone: Evaluation note* Diagnosis Onset Date Resolution Status (HFpEF) heart failure with preserved ejection fraction chronic Bilateral carotid artery stenosis chronic Bradycardia chronic Diabetes mellitus chronic [facility] Work Phone: Evaluation note* Diagnosis Onset Date Resolution Status Breast cancer, right breast 2021 acute Cellulitis of breast resolve d Hypertensive urgency resolve d Hypoxemia resolved Seroma, postoperative resolv ed Debility acute Diabetes mellitus acute Glaucoma acute Acute diastolic congestive heart failure resolved Acute kidney injury resolved Acute respiratory failure with hypoxia resolved Breast abscess resolved Pain around toenail, left foot resolved Pain around toenail, right foot resolved Tinea unguium resolved ABDI (obstructive sleep apnea) acute Bilateral carotid artery stenosis chronic Breast abscess resolved Breast cancer, right breast 2021 acute Left adrenal mass chronic Breast cancer, right breast 2021 acute Encounter for education acut e Left adrenal mass chronic MALATHI (acute kidney injury) re solved Bradycardia resolved Nausea resolved ABDI (obstructive sleep apnea) acute Bilateral carotid artery stenosis chronic Bradycardia resolved Debility acute FTT (failure to thrive) in adult acute Labile blood pressure acute Nocturnal hypoxia acute MALATHI (acute kidney injury) re solved Hypercalcemia resolved Prerenal azotemia resolved BMI 40.0-44.9, adult acute ABDI (obstructive sleep apnea) acute Left adrenal mass chronic ABDI (obstructive sleep apnea) acute Bilateral carotid artery stenosis chronic BMI 40.0-44.9, adult acute ABDI (obstructive sleep apnea) acute [facility] Work Phone: Evaluation note* Diagnosis Onset Date Resolution Status Admit Date Chest pain acute December 16, 2024 1:29pm Edema acute December 16, 2024 1:29pm HLD (hyperlipidemia) acute December 16, 2024 1:29pm (HFpEF) heart failure with preserved ejection fraction chronic December 16, 2024 1:29pm Hypertension chronic December 16 1:29pm Left carotid artery stenosis chronic December 16, 2024 1:29pm ABDI (obstructive sleep apnea) chroni c December 16, 2024 1:29pm [facility] Work Phone: Hospital Discharge instructionsAmbulatory Orders* Oncology Location: None Selected [facility] Work Phone: Hospital Discharge instructionsAmbulatory Orders* Radiation Oncology Location: None [facility] Work Phone: Instructions* Name Dates Details Patient Instructions Indication:Type 2 diabetes mellitus Start:15-Sep-2020 Instruction Type:Provider Instructions for Treatment How to Access Health Informa tion Online using Patient Portal and Inform[employer]at Apps Indication:Type 2 diabetes mellitus Start:15-Sep-2020 Instruction Type:Patient Education [facility] Work Phone: Instructions* Name Dates Details Patient Instructions Indication:Type 2 diabetes mellitus Start:15-Sep-2020 Instruction Type:Provider Instructions for Treatment How to Access Health Informa tion Online using Patient Portal and [employer] Apps Indication:Type 2 diabetes mellitus Start:15-Sep-2020 Instruction Type:Patient Education [facility]; [facility] Work Phone: instructions* Name Dates Details Patient Instructions Indication:Type 2 diabetes mellitus Start:13-Dec-2020 Instruction Type:Provider Instructions for Treatment How to Access Health Informa tion Online using Patient Portal and [employer] Apps Indication:Type 2 diabetes mellitus Start:13-Dec-2020 Instruction Type:Patient Education Patient Instructions Indication:Type 2 diabetes mellitus Start:15-Sep-2020 Instruction Type:Provider Instructions for Treatment How to Access Health Informa tion Online using Patient Portal and [employer] Apps Indication:Type 2 diabetes mellitus Start:15-Sep-2020 Instruction Type:Patient Education [facility]; [facility] Work Phone: instructions* Name Dates Details Patient Instructions Indication:Type 2 diabetes mellitus Start:13-Dec-2020 Instruction Type:Provider Instructions for Treatment How to Access Health Informa tion Online using Patient Portal and [employer] Apps Indication:Type 2 diabetes mellitus Start:13-Dec-2020 Instruction Type:Patient Education Patient Instructions Indication:Type 2 diabetes mellitus Start:15-Sep-2020 Instruction Type:Provider Instructions for Treatment How to Access Health Informa tion Online using Patient Portal and [employer] Apps Indication:Type 2 diabetes mellitus Start:15-Sep-2020 Instruction Type:Patient Education [facility]; [facility] Work Phone: instructions* Name Dates Details Patient Instructions Indication:Nonsmoker Start:28-May-2021 Instruction Type:Provider Instructions for Treatment How to Access Health Informa tion Online using Patient Portal and [employer] Apps Indication:Nonsmoker Start:28-May-2021 Instruction Type:Patient Education Patient Instructions Indication:BMI 40.0-44.9, adult Start:04-Apr-2021 Instruction Type:Provider Instructions for Treatment How to Access Health Informa tion Online using Patient Portal and [employer] Apps Indication:BMI 40.0-44.9, adult Start:04-Apr-2021 Instruction Type:Patient Education Patient Instructions Indication:BMI 40.0-44.9, adult Start:20-Mar-2021 Instruction Type:Provider Instructions for Treatment How to Access Health Informa tion Online using Patient Portal and [employer] Apps Indication:BMI 40.0-44.9, adult Start:20-Mar-2021 Instruction Type:Patient Education Patient Instructions Indication:Type 2 diabetes mellitus Start:13-Dec-2020 Instruction Type:Provider Instructions for Treatment How to Access Health Informa tion Online using Patient Portal and [employer] Apps Indication:Type 2 diabetes mellitus Start:13-Dec-2020 Instruction Type:Patient Education Patient Instructions Indication:Type 2 diabetes mellitus Start:15-Sep-2020 Instruction Type:Provider Instructions for Treatment How to Access Health Informa tion Online using Patient Portal and [employer] Apps Indication:Type 2 diabetes mellitus Start:15-Sep-2020 Instruction Type:Patient Education [facility]; [facility] Work Phone: Instructions* Name Dates Details Patient Instructions Indication:BMI 40.0-44.9, adult Start:09-Aug-2021 Instruction Type:Provider Instructions for Treatment How to Access Health Informa tion Online using Patient Portal and [employer] Apps Indication:BMI 40.0-44.9, adult Start:09-Aug-2021 Instruction Type:Patient Education Patient Instructions Indication:Nonsmoker Start:28-May-2021 Instruction Type:Provider Instructions for Treatment How to Access Health Informa tion Online using Patient Portal and [employer] Apps Indication:Nonsmoker Start:28-May-2021 Instruction Type:Patient Education Patient Instructions Indication:BMI 40.0-44.9, adult Start:04-Apr-2021 Instruction Type:Provider Instructions for Treatment How to Access Health Informa tion Online using Patient Portal and [employer] Apps Indication:BMI 40.0-44.9, adult Start:04-Apr-2021 Instruction Type:Patient Education Patient Instructions Indication:BMI 40.0-44.9, adult Start:20-Mar-2021 Instruction Type:Provider Instructions for Treatment How to Access Health Informa tion Online using Patient Portal and [employer] Apps Indication:BMI 40.0-44.9, adult Start:20-Mar-2021 Instruction Type:Patient Education Patient Instructions Indication:Type 2 diabetes mellitus Start:13-Dec-2020 Instruction Type:Provider Instructions for Treatment How to Access Health Informa tion Online using Patient Portal and [employer] Apps Indication:Type 2 diabetes mellitus Start:13-Dec-2020 Instruction Type:Patient Education Patient Instructions Indication:Type 2 diabetes mellitus Start:15-Sep-2020 Instruction Type:Provider Instructions for Treatment How to Access Health Informa tion Online using Patient Portal and [employer] Apps Indication:Type 2 diabetes mellitus Start:15-Sep-2020 Instruction Type:Patient Education [facility]; [facility] Work Phone: instructions* Name Dates Details Patient Instructions Indication:BMI 40.0-44.9, adult Start:09-Aug-2021 Instruction Type:Provider Instructions for Treatment How to Access Health Informa tion Online using Patient Portal and [employer] Apps Indication:BMI 40.0-44.9, adult Start:09-Aug-2021 Instruction Type:Patient Education Patient Instructions Indication:Nonsmoker Start:28-May-2021 Instruction Type:Provider Instructions for Treatment How to Access Health Informa tion Online using Patient Portal and [employer] Apps Indication:Nonsmoker Start:28-May-2021 Instruction Type:Patient Education Patient Instructions Indication:BMI 40.0-44.9, adult Start:04-Apr-2021 Instruction Type:Provider Instructions for Treatment How to Access Health Informa tion Online using Patient Portal and [employer] Apps Indication:BMI 40.0-44.9, adult Start:04-Apr-2021 Instruction Type:Patient Education Patient Instructions Indication:BMI 40.0-44.9, adult Start:20-Mar-2021 Instruction Type:Provider Instructions for Treatment How to Access Health Informa tion Online using Patient Portal and [employer] Apps Indication:BMI 40.0-44.9, adult Start:20-Mar-2021 Instruction Type:Patient Education Patient Instructions Indication:Type 2 diabetes mellitus Start:13-Dec-2020 Instruction Type:Provider Instructions for Treatment How to Access Health Informa tion Online using Patient Portal and [employer] Apps Indication:Type 2 diabetes mellitus Start:13-Dec-2020 Instruction Type:Patient Education Patient Instructions Indication:Type 2 diabetes mellitus Start:15-Sep-2020 Instruction Type:Provider Instructions for Treatment How to Access Health Informa tion Online using Patient Portal and [employer] Apps Indication:Type 2 diabetes mellitus Start:15-Sep-2020 Instruction Type:Patient Education [facility]; [facility] Work Phone: instructions* Name Dates Details Patient Instructions Indication:Nonsmoker Start:10-Aug-2021 Instruction Type:Provider Instructions for Treatment How to Access Health Informa tion Online using Patient Portal and [employer] Apps Indication:Hypertension Start:10-Aug-2021 Instruction Type:Patient Education Patient Instructions Indication:BMI 40.0-44.9, adult Start:09-Aug-2021 Instruction Type:Provider Instructions for Treatment How to Access Health Informa tion Online using Patient Portal and [employer] Apps Indication:BMI 40.0-44.9, adult Start:09-Aug-2021 Instruction Type:Patient Education Patient Instructions Indication:Nonsmoker Start:28-May-2021 Instruction Type:Provider Instructions for Treatment How to Access Health Informa tion Online using Patient Portal and [employer] Apps Indication:Nonsmoker Start:28-May-2021 Instruction Type:Patient Education Patient Instructions Indication:BMI 40.0-44.9, adult Start:04-Apr-2021 Instruction Type:Provider Instructions for Treatment How to Access Health Informa tion Online using Patient Portal and [employer] Apps Indication:BMI 40.0-44.9, adult Start:04-Apr-2021 Instruction Type:Patient Education Patient Instructions Indication:BMI 40.0-44.9, adult Start:20-Mar-2021 Instruction Type:Provider Instructions for Treatment How to Access Health Informa tion Online using Patient Portal and [employer] Apps Indication:BMI 40.0-44.9, adult Start:20-Mar-2021 Instruction Type:Patient Education Patient Instructions Indication:Type 2 diabetes mellitus Start:13-Dec-2020 Instruction Type:Provider Instructions for Treatment How to Access Health Informa tion Online using Patient Portal and [employer]form[employer] Apps Indication:Type 2 diabetes mellitus Start:13-Dec-2020 Instruction Type:Patient Education Patient Instructions Indication:Type 2 diabetes mellitus Start:15-Sep-2020 Instruction Type:Provider Instructions for Treatment How to Access Health Informa tion Online using Patient Portal and [employer] Apps Indication:Type 2 diabetes mellitus Start:15-Sep-2020 Instruction Type:Patient Education [facility]; [facility] Work Phone: Instructions* Name Dates Details Patient Instructions Indication:Nonsmoker Start:10-Aug-2021 Instruction Type:Provider Instructions for Treatment How to Access Health Informa tion Online using Patient Portal and [employer] Apps Indication:Hypertension Start:10-Aug-2021 Instruction Type:Patient Education Patient Instructions Indication:BMI 40.0-44.9, adult Start:09-Aug-2021 Instruction Type:Provider Instructions for Treatment How to Access Health Informa tion Online using Patient Portal and [employer] Apps Indication:BMI 40.0-44.9, adult Start:09-Aug-2021 Instruction Type:Patient Education Patient Instructions Indication:Nonsmoker Start:28-May-2021 Instruction Type:Provider Instructions for Treatment How to Access Health Informa tion Online using Patient Portal and [employer] Apps Indication:Nonsmoker Start:28-May-2021 Instruction Type:Patient Education Patient Instructions Indication:BMI 40.0-44.9, adult Start:04-Apr-2021 Instruction Type:Provider Instructions for Treatment How to Access Health Informa tion Online using Patient Portal and [employer] Apps Indication:BMI 40.0-44.9, adult Start:04-Apr-2021 Instruction Type:Patient Education Patient Instructions Indication:BMI 40.0-44.9, adult Start:20-Mar-2021 Instruction Type:Provider Instructions for Treatment How to Access Health Informa tion Online using Patient Portal and [employer] Apps Indication:BMI 40.0-44.9, adult Start:20-Mar-2021 Instruction Type:Patient Education Patient Instructions Indication:Type 2 diabetes mellitus Start:13-Dec-2020 Instruction Type:Provider Instructions for Treatment How to Access Health Informa tion Online using Patient Portal and [employer] Apps Indication:Type 2 diabetes mellitus Start:13-Dec-2020 Instruction Type:Patient Education Patient Instructions Indication:Type 2 diabetes mellitus Start:15-Sep-2020 Instruction Type:Provider Instructions for Treatment How to Access Health Informa tion Online using Patient Portal and [employer] Apps Indication:Type 2 diabetes mellitus Start:15-Sep-2020 Instruction Type:Patient Education [facility]; [facility] Work Phone: Instructions* Name Dates Details Patient Instructions Indication:BMI 40.0-44.9, adult Start:26-Sep-2021 Instruction Type:Provider Instructions for Treatment How to Access Health Informa tion Online using Patient Portal and [employer] Apps Indication:BMI 40.0-44.9, adult Start:26-Sep-2021 Instruction Type:Patient Education Patient Instructions Indication:Nonsmoker Start:10-Aug-2021 Instruction Type:Provider Instructions for Treatment How to Access Health Informa tion Online using Patient Portal and [employer] Apps Indication:Hypertension Start:10-Aug-2021 Instruction Type:Patient Education Patient Instructions Indication:BMI 40.0-44.9, adult Start:09-Aug-2021 Instruction Type:Provider Instructions for Treatment How to Access Health Informa tion Online using Patient Portal and [employer] Apps Indication:BMI 40.0-44.9, adult Start:09-Aug-2021 Instruction Type:Patient Education Patient Instructions Indication:Nonsmoker Start:28-May-2021 Instruction Type:Provider Instructions for Treatment How to Access Health Informa tion Online using Patient Portal and [employer] Apps Indication:Nonsmoker Start:28-May-2021 Instruction Type:Patient Education Patient Instructions Indication:BMI 40.0-44.9, adult Start:04-Apr-2021 Instruction Type:Provider Instructions for Treatment How to Access Health Informa tion Online using Patient Portal and [employer] Apps Indication:BMI 40.0-44.9, adult Start:04-Apr-2021 Instruction Type:Patient Education Patient Instructions Indication:BMI 40.0-44.9, adult Start:20-Mar-2021 Instruction Type:Provider Instructions for Treatment How to Access Health Informa tion Online using Patient Portal and [employer] Apps Indication:BMI 40.0-44.9, adult Start:20-Mar-2021 Instruction Type:Patient Education Patient Instructions Indication:Type 2 diabetes mellitus Start:13-Dec-2020 Instruction Type:Provider Instructions for Treatment How to Access Health Informa tion Online using Patient Portal and [employer] Apps Indication:Type 2 diabetes mellitus Start:13-Dec-2020 Instruction Type:Patient Education Patient Instructions Indication:Type 2 diabetes mellitus Start:15-Sep-2020 Instruction Type:Provider Instructions for Treatment How to Access Health Informa tion Online using Patient Portal and [employer] Apps Indication:Type 2 diabetes mellitus Start:15-Sep-2020 Instruction Type:Patient Education [facility]; [facility] Work Phone: Instructions* Name Dates Details Patient Instructions Indication:BMI 40.0-44.9, adult Start:26-Sep-2021 Instruction Type:Provider Instructions for Treatment How to Access Health Informa tion Online using Patient Portal and [employer] Apps Indication:BMI 40.0-44.9, adult Start:26-Sep-2021 Instruction Type:Patient Education Patient Instructions Indication:Nonsmoker Start:10-Aug-2021 Instruction Type:Provider Instructions for Treatment How to Access Health Informa tion Online using Patient Portal and [employer] Apps Indication:Hypertension Start:10-Aug-2021 Instruction Type:Patient Education Patient Instructions Indication:BMI 40.0-44.9, adult Start:09-Aug-2021 Instruction Type:Provider Instructions for Treatment How to Access Health Informa tion Online using Patient Portal and [employer] Apps Indication:BMI 40.0-44.9, adult Start:09-Aug-2021 Instruction Type:Patient Education Patient Instructions Indication:Nonsmoker Start:28-May-2021 Instruction Type:Provider Instructions for Treatment How to Access Health Informa tion Online using Patient Portal and [employer] Apps Indication:Nonsmoker Start:28-May-2021 Instruction Type:Patient Education Patient Instructions Indication:BMI 40.0-44.9, adult Start:04-Apr-2021 Instruction Type:Provider Instructions for Treatment How to Access Health Informa tion Online using Patient Portal and [employer] Apps Indication:BMI 40.0-44.9, adult Start:04-Apr-2021 Instruction Type:Patient Education Patient Instructions Indication:BMI 40.0-44.9, adult Start:20-Mar-2021 Instruction Type:Provider Instructions for Treatment How to Access Health Informa tion Online using Patient Portal and [employer] Apps Indication:BMI 40.0-44.9, adult Start:20-Mar-2021 Instruction Type:Patient Education Patient Instructions Indication:Type 2 diabetes mellitus Start:13-Dec-2020 Instruction Type:Provider Instructions for Treatment How to Access Health Informa tion Online using Patient Portal and [employer] Apps Indication:Type 2 diabetes mellitus Start:13-Dec-2020 Instruction Type:Patient Education Patient Instructions Indication:Type 2 diabetes mellitus Start:15-Sep-2020 Instruction Type:Provider Instructions for Treatment How to Access Health Informa tion Online using Patient Portal and [employer] Apps Indication:Type 2 diabetes mellitus Start:15-Sep-2020 Instruction Type:Patient Education [facility]; [facility] Work Phone: Instructions* Name Dates Details Patient Instructions Indication:BMI 40.0-44.9, adult Start:17-Oct-2021 Instruction Type:Provider Instructions for Treatment How to Access Health Informa tion Online using Patient Portal and [employer] Apps Indication:BMI 40.0-44.9, adult Start:17-Oct-2021 Instruction Type:Patient Education Patient Instructions Indication:BMI 40.0-44.9, adult Start:10-Oct-2021 Instruction Type:Provider Instructions for Treatment How to Access Health Informa tion Online using Patient Portal and [employer] Apps Indication:BMI 40.0-44.9, adult Start:10-Oct-2021 Instruction Type:Patient Education Patient Instructions Indication:Cellulitis Start:03-Oct-2021 Instruction Type:Provider Instructions for Treatment Patient Instructions Indication:BMI 40.0-44.9, adult Start:26-Sep-2021 Instruction Type:Provider Instructions for Treatment How to Access Health Informa tion Online using Patient Portal and [employer] Apps Indication:BMI 40.0-44.9, adult Start:26-Sep-2021 Instruction Type:Patient Education Patient Instructions Indication:Nonsmoker Start:10-Aug-2021 Instruction Type:Provider Instructions for Treatment How to Access Health Informa tion Online using Patient Portal and [employer] Apps Indication:Hypertension Start:10-Aug-2021 Instruction Type:Patient Education Patient Instructions Indication:BMI 40.0-44.9, adult Start:09-Aug-2021 Instruction Type:Provider Instructions for Treatment How to Access Health Informa tion Online using Patient Portal and [employer] Apps Indication:BMI 40.0-44.9, adult Start:09-Aug-2021 Instruction Type:Patient Education Patient Instructions Indication:Nonsmoker Start:28-May-2021 Instruction Type:Provider Instructions for Treatment How to Access Health Informa tion Online using Patient Portal and [employer] Apps Indication:Nonsmoker Start:28-May-2021 Instruction Type:Patient Education Patient Instructions Indication:BMI 40.0-44.9, adult Start:04-Apr-2021 Instruction Type:Provider Instructions for Treatment How to Access Health Informa tion Online using Patient Portal and [employer] Apps Indication:BMI 40.0-44.9, adult Start:04-Apr-2021 Instruction Type:Patient Education Patient Instructions Indication:BMI 40.0-44.9, adult Start:20-Mar-2021 Instruction Type:Provider Instructions for Treatment How to Access Health Informa tion Online using Patient Portal and [employer] Apps Indication:BMI 40.0-44.9, adult Start:20-Mar-2021 Instruction Type:Patient Education Patient Instructions Indication:Type 2 diabetes mellitus Start:13-Dec-2020 Instruction Type:Provider Instructions for Treatment How to Access Health Informa tion Online using Patient Portal and [employer] Apps Indication:Type 2 diabetes mellitus Start:13-Dec-2020 Instruction Type:Patient Education Patient Instructions Indication:Type 2 diabetes mellitus Start:15-Sep-2020 Instruction Type:Provider Instructions for Treatment How to Access Health Informa tion Online using Patient Portal and [employer] Apps Indication:Type 2 diabetes mellitus Start:15-Sep-2020 Instruction Type:Patient Education [facility]; [facility] Work Phone: Instructions* Name Dates Details Patient Instructions Indication:BMI 40.0-44.9, adult Start:17-Oct-2021 Instruction Type:Provider Instructions for Treatment How to Access Health Informa tion Online using Patient Portal and [employer] Apps Indication:BMI 40.0-44.9, adult Start:17-Oct-2021 Instruction Type:Patient Education Patient Instructions Indication:BMI 40.0-44.9, adult Start:10-Oct-2021 Instruction Type:Provider Instructions for Treatment How to Access Health Informa tion Online using Patient Portal and [employer] Apps Indication:BMI 40.0-44.9, adult Start:10-Oct-2021 Instruction Type:Patient Education Patient Instructions Indication:Cellulitis Start:03-Oct-2021 Instruction Type:Provider Instructions for Treatment Patient Instructions Indication:BMI 40.0-44.9, adult Start:26-Sep-2021 Instruction Type:Provider Instructions for Treatment How to Access Health Informa tion Online using Patient Portal and [employer] Apps Indication:BMI 40.0-44.9, adult Start:26-Sep-2021 Instruction Type:Patient Education Patient Instructions Indication:Nonsmoker Start:10-Aug-2021 Instruction Type:Provider Instructions for Treatment How to Access Health Informa tion Online using Patient Portal and [employer] Apps Indication:Hypertension Start:10-Aug-2021 Instruction Type:Patient Education Patient Instructions Indication:BMI 40.0-44.9, adult Start:09-Aug-2021 Instruction Type:Provider Instructions for Treatment How to Access Health Informa tion Online using Patient Portal and [employer] Apps Indication:BMI 40.0-44.9, adult Start:09-Aug-2021 Instruction Type:Patient Education Patient Instructions Indication:Nonsmoker Start:28-May-2021 Instruction Type:Provider Instructions for Treatment How to Access Health Informa tion Online using Patient Portal and [employer] Apps Indication:Nonsmoker Start:28-May-2021 Instruction Type:Patient Education Patient Instructions Indication:BMI 40.0-44.9, adult Start:04-Apr-2021 Instruction Type:Provider Instructions for Treatment How to Access Health Informa tion Online using Patient Portal and [employer] Apps Indication:BMI 40.0-44.9, adult Start:04-Apr-2021 Instruction Type:Patient Education Patient Instructions Indication:BMI 40.0-44.9, adult Start:20-Mar-2021 Instruction Type:Provider Instructions for Treatment How to Access Health Informa tion Online using Patient Portal and [employer] Apps Indication:BMI 40.0-44.9, adult Start:20-Mar-2021 Instruction Type:Patient Education Patient Instructions Indication:Type 2 diabetes mellitus Start:13-Dec-2020 Instruction Type:Provider Instructions for Treatment How to Access Health Informa tion Online using Patient Portal and [employer] Apps Indication:Type 2 diabetes mellitus Start:13-Dec-2020 Instruction Type:Patient Education Patient Instructions Indication:Type 2 diabetes mellitus Start:15-Sep-2020 Instruction Type:Provider Instructions for Treatment How to Access Health Informa tion Online using Patient Portal and [employer]rd [employer] Apps Indication:Type 2 diabetes mellitus Start:15-Sep-2020 Instruction Type:Patient Education [facility]; [facility] Work Phone: Instructions* Name Dates Details Patient Instructions Indication:BMI 40.0-44.9, adult Start:17-Oct-2021 Instruction Type:Provider Instructions for Treatment How to Access Health Informa tion Online using Patient Portal and [employer] Apps Indication:BMI 40.0-44.9, adult Start:17-Oct-2021 Instruction Type:Patient Education Patient Instructions Indication:BMI 40.0-44.9, adult Start:10-Oct-2021 Instruction Type:Provider Instructions for Treatment How to Access Health Informa tion Online using Patient Portal and [employer] Apps Indication:BMI 40.0-44.9, adult Start:10-Oct-2021 Instruction Type:Patient Education Patient Instructions Indication:Cellulitis Start:03-Oct-2021 Instruction Type:Provider Instructions for Treatment Patient Instructions Indication:BMI 40.0-44.9, adult Start:26-Sep-2021 Instruction Type:Provider Instructions for Treatment How to Access Health Informa tion Online using Patient Portal and [employer] Apps Indication:BMI 40.0-44.9, adult Start:26-Sep-2021 Instruction Type:Patient Education Patient Instructions Indication:Nonsmoker Start:10-Aug-2021 Instruction Type:Provider Instructions for Treatment How to Access Health Informa tion Online using Patient Portal and [employer] Apps Indication:Hypertension Start:10-Aug-2021 Instruction Type:Patient Education Patient Instructions Indication:BMI 40.0-44.9, adult Start:09-Aug-2021 Instruction Type:Provider Instructions for Treatment How to Access Health Informa tion Online using Patient Portal and [employer] Apps Indication:BMI 40.0-44.9, adult Start:09-Aug-2021 Instruction Type:Patient Education Patient Instructions Indication:Nonsmoker Start:28-May-2021 Instruction Type:Provider Instructions for Treatment How to Access Health Informa tion Online using Patient Portal and [employer] Apps Indication:Nonsmoker Start:28-May-2021 Instruction Type:Patient Education Patient Instructions Indication:BMI 40.0-44.9, adult Start:04-Apr-2021 Instruction Type:Provider Instructions for Treatment How to Access Health Informa tion Online using Patient Portal and [employer] Apps Indication:BMI 40.0-44.9, adult Start:04-Apr-2021 Instruction Type:Patient Education Patient Instructions Indication:BMI 40.0-44.9, adult Start:20-Mar-2021 Instruction Type:Provider Instructions for Treatment How to Access Health Informa tion Online using Patient Portal and [employer] Apps Indication:BMI 40.0-44.9, adult Start:20-Mar-2021 Instruction Type:Patient Education Patient Instructions Indication:Type 2 diabetes mellitus Start:13-Dec-2020 Instruction Type:Provider Instructions for Treatment How to Access Health Informa tion Online using Patient Portal and [employer] Apps Indication:Type 2 diabetes mellitus Start:13-Dec-2020 Instruction Type:Patient Education Patient Instructions Indication:Type 2 diabetes mellitus Start:15-Sep-2020 Instruction Type:Provider Instructions for Treatment How to Access Health Informa tion Online using Patient Portal and [employer] Apps Indication:Type 2 diabetes mellitus Start:15-Sep-2020 Instruction Type:Patient Education [facility]; [facility] Work Phone: Instructions* Name Dates Details Patient Instructions Indication:Morbid obesity Start:31-Dec-2021 Instruction Type:Provider Instructions for Treatment How to Access Health Informa tion Online using Patient Portal and [employer] Apps Indication:Morbid obesity Start:31-Dec-2021 Instruction Type:Patient Education Patient Instructions Indication:BMI 40.0-44.9, adult Start:17-Oct-2021 Instruction Type:Provider Instructions for Treatment How to Access Health Informa tion Online using Patient Portal and [employer] Apps Indication:BMI 40.0-44.9, adult Start:17-Oct-2021 Instruction Type:Patient Education Patient Instructions Indication:BMI 40.0-44.9, adult Start:10-Oct-2021 Instruction Type:Provider Instructions for Treatment How to Access Health Informa tion Online using Patient Portal and [employer] Apps Indication:BMI 40.0-44.9, adult Start:10-Oct-2021 Instruction Type:Patient Education Patient Instructions Indication:Cellulitis Start:03-Oct-2021 Instruction Type:Provider Instructions for Treatment Patient Instructions Indication:BMI 40.0-44.9, adult Start:26-Sep-2021 Instruction Type:Provider Instructions for Treatment How to Access Health Informa tion Online using Patient Portal and [employer] Apps Indication:BMI 40.0-44.9, adult Start:26-Sep-2021 Instruction Type:Patient Education Patient Instructions Indication:Nonsmoker Start:10-Aug-2021 Instruction Type:Provider Instructions for Treatment How to Access Health Informa tion Online using Patient Portal and [employer] Apps Indication:Hypertension Start:10-Aug-2021 Instruction Type:Patient Education Patient Instructions Indication:BMI 40.0-44.9, adult Start:09-Aug-2021 Instruction Type:Provider Instructions for Treatment How to Access Health Informa tion Online using Patient Portal and [employer] Apps Indication:BMI 40.0-44.9, adult Start:09-Aug-2021 Instruction Type:Patient Education Patient Instructions Indication:Nonsmoker Start:28-May-2021 Instruction Type:Provider Instructions for Treatment How to Access Health Informa tion Online using Patient Portal and [employer] Apps Indication:Nonsmoker Start:28-May-2021 Instruction Type:Patient Education Patient Instructions Indication:BMI 40.0-44.9, adult Start:04-Apr-2021 Instruction Type:Provider Instructions for Treatment How to Access Health Informa tion Online using Patient Portal and [employer] Apps Indication:BMI 40.0-44.9, adult Start:04-Apr-2021 Instruction Type:Patient Education Patient Instructions Indication:BMI 40.0-44.9, adult Start:20-Mar-2021 Instruction Type:Provider Instructions for Treatment How to Access Health Informa tion Online using Patient Portal and [employer] Apps Indication:BMI 40.0-44.9, adult Start:20-Mar-2021 Instruction Type:Patient Education Patient Instructions Indication:Type 2 diabetes mellitus Start:13-Dec-2020 Instruction Type:Provider Instructions for Treatment How to Access Health Informa tion Online using Patient Portal and [employer] Apps Indication:Type 2 diabetes mellitus Start:13-Dec-2020 Instruction Type:Patient Education Patient Instructions Indication:Type 2 diabetes mellitus Start:15-Sep-2020 Instruction Type:Provider Instructions for Treatment How to Access Health Informa tion Online using Patient Portal and [employer] Apps Indication:Type 2 diabetes mellitus Start:15-Sep-2020 Instruction Type:Patient Education [facility]; [facility] Work Phone: Instructions* Name Dates Details Patient Instructions Indication:Morbid obesity Start:31-Dec-2021 Instruction Type:Provider Instructions for Treatment How to Access Health Informa tion Online using Patient Portal and [employer] Apps Indication:Morbid obesity Start:31-Dec-2021 Instruction Type:Patient Education Patient Instructions Indication:BMI 40.0-44.9, adult Start:17-Oct-2021 Instruction Type:Provider Instructions for Treatment How to Access Health Informa tion Online using Patient Portal and [employer] Apps Indication:BMI 40.0-44.9, adult Start:17-Oct-2021 Instruction Type:Patient Education Patient Instructions Indication:BMI 40.0-44.9, adult Start:10-Oct-2021 Instruction Type:Provider Instructions for Treatment How to Access Health Informa tion Online using Patient Portal and [employer] Apps Indication:BMI 40.0-44.9, adult Start:10-Oct-2021 Instruction Type:Patient Education Patient Instructions Indication:Cellulitis Start:03-Oct-2021 Instruction Type:Provider Instructions for Treatment Patient Instructions Indication:BMI 40.0-44.9, adult Start:26-Sep-2021 Instruction Type:Provider Instructions for Treatment How to Access Health Informa tion Online using Patient Portal and [employer] Apps Indication:BMI 40.0-44.9, adult Start:26-Sep-2021 Instruction Type:Patient Education Patient Instructions Indication:Nonsmoker Start:10-Aug-2021 Instruction Type:Provider Instructions for Treatment How to Access Health Informa tion Online using Patient Portal and [employer] Apps Indication:Hypertension Start:10-Aug-2021 Instruction Type:Patient Education Patient Instructions Indication:BMI 40.0-44.9, adult Start:09-Aug-2021 Instruction Type:Provider Instructions for Treatment How to Access Health Informa tion Online using Patient Portal and [employer] Apps Indication:BMI 40.0-44.9, adult Start:09-Aug-2021 Instruction Type:Patient Education Patient Instructions Indication:Nonsmoker Start:28-May-2021 Instruction Type:Provider Instructions for Treatment How to Access Health Informa tion Online using Patient Portal and [employer] Apps Indication:Nonsmoker Start:28-May-2021 Instruction Type:Patient Education Patient Instructions Indication:BMI 40.0-44.9, adult Start:04-Apr-2021 Instruction Type:Provider Instructions for Treatment How to Access Health Informa tion Online using Patient Portal and [employer] Apps Indication:BMI 40.0-44.9, adult Start:04-Apr-2021 Instruction Type:Patient Education Patient Instructions Indication:BMI 40.0-44.9, adult Start:20-Mar-2021 Instruction Type:Provider Instructions for Treatment How to Access Health Informa tion Online using Patient Portal and [employer] Apps Indication:BMI 40.0-44.9, adult Start:20-Mar-2021 Instruction Type:Patient Education Patient Instructions Indication:Type 2 diabetes mellitus Start:13-Dec-2020 Instruction Type:Provider Instructions for Treatment How to Access Health Informa tion Online using Patient Portal and [employer] Apps Indication:Type 2 diabetes mellitus Start:13-Dec-2020 Instruction Type:Patient Education Patient Instructions Indication:Type 2 diabetes mellitus Start:15-Sep-2020 Instruction Type:Provider Instructions for Treatment How to Access Health Informa tion Online using Patient Portal and [employer] Apps Indication:Type 2 diabetes mellitus Start:15-Sep-2020 Instruction Type:Patient Education [facility]; [facility] Work Phone: Instructions* Name Dates Details Patient Instructions Indication:Morbid obesity Start:18-Feb-2022 Instruction Type:Provider Instructions for Treatment How to Access Health Informa tion Online using Patient Portal and [employer] Apps Indication:Morbid obesity Start:18-Feb-2022 Instruction Type:Patient Education Patient Instructions Indication:Morbid obesity Start:31-Dec-2021 Instruction Type:Provider Instructions for Treatment How to Access Health Informa tion Online using Patient Portal and [employer] Apps Indication:Morbid obesity Start:31-Dec-2021 Instruction Type:Patient Education Patient Instructions Indication:BMI 40.0-44.9, adult Start:17-Oct-2021 Instruction Type:Provider Instructions for Treatment How to Access Health Informa tion Online using Patient Portal and [employer] Apps Indication:BMI 40.0-44.9, adult Start:17-Oct-2021 Instruction Type:Patient Education Patient Instructions Indication:BMI 40.0-44.9, adult Start:10-Oct-2021 Instruction Type:Provider Instructions for Treatment How to Access Health Informa tion Online using Patient Portal and [employer] Apps Indication:BMI 40.0-44.9, adult Start:10-Oct-2021 Instruction Type:Patient Education Patient Instructions Indication:Cellulitis Start:03-Oct-2021 Instruction Type:Provider Instructions for Treatment Patient Instructions Indication:BMI 40.0-44.9, adult Start:26-Sep-2021 Instruction Type:Provider Instructions for Treatment How to Access Health Informa tion Online using Patient Portal and [employer] Apps Indication:BMI 40.0-44.9, adult Start:26-Sep-2021 Instruction Type:Patient Education Patient Instructions Indication:Nonsmoker Start:10-Aug-2021 Instruction Type:Provider Instructions for Treatment How to Access Health Informa tion Online using Patient Portal and [employer] Apps Indication:Hypertension Start:10-Aug-2021 Instruction Type:Patient Education Patient Instructions Indication:BMI 40.0-44.9, adult Start:09-Aug-2021 Instruction Type:Provider Instructions for Treatment How to Access Health Informa tion Online using Patient Portal and [employer] Apps Indication:BMI 40.0-44.9, adult Start:09-Aug-2021 Instruction Type:Patient Education Patient Instructions Indication:Nonsmoker Start:28-May-2021 Instruction Type:Provider Instructions for Treatment How to Access Health Informa tion Online using Patient Portal and [employer] Apps Indication:Nonsmoker Start:28-May-2021 Instruction Type:Patient Education Patient Instructions Indication:BMI 40.0-44.9, adult Start:04-Apr-2021 Instruction Type:Provider Instructions for Treatment How to Access Health Informa tion Online using Patient Portal and [employer] Apps Indication:BMI 40.0-44.9, adult Start:04-Apr-2021 Instruction Type:Patient Education Patient Instructions Indication:BMI 40.0-44.9, adult Start:20-Mar-2021 Instruction Type:Provider Instructions for Treatment How to Access Health Informa tion Online using Patient Portal and [employer] Apps Indication:BMI 40.0-44.9, adult Start:20-Mar-2021 Instruction Type:Patient Education Patient Instructions Indication:Type 2 diabetes mellitus Start:13-Dec-2020 Instruction Type:Provider Instructions for Treatment How to Access Health Informa tion Online using Patient Portal and [employer] Apps Indication:Type 2 diabetes mellitus Start:13-Dec-2020 Instruction Type:Patient Education Patient Instructions Indication:Type 2 diabetes mellitus Start:15-Sep-2020 Instruction Type:Provider Instructions for Treatment How to Access Health Informa tion Online using Patient Portal and [employer] Apps Indication:Type 2 diabetes mellitus Start:15-Sep-2020 Instruction Type:Patient Education [facility]; [facility] Work Phone: Instructions* Name Dates Details Patient Instructions Indication:Morbid obesity Start:18-Feb-2022 Instruction Type:Provider Instructions for Treatment How to Access Health Informa tion Online using Patient Portal and [employer] Apps Indication:Morbid obesity Start:18-Feb-2022 Instruction Type:Patient Education Patient Instructions Indication:Morbid obesity Start:31-Dec-2021 Instruction Type:Provider Instructions for Treatment How to Access Health Informa tion Online using Patient Portal and [employer] Apps Indication:Morbid obesity Start:31-Dec-2021 Instruction Type:Patient Education Patient Instructions Indication:BMI 40.0-44.9, adult Start:17-Oct-2021 Instruction Type:Provider Instructions for Treatment How to Access Health Informa tion Online using Patient Portal and [employer] Apps Indication:BMI 40.0-44.9, adult Start:17-Oct-2021 Instruction Type:Patient Education Patient Instructions Indication:BMI 40.0-44.9, adult Start:10-Oct-2021 Instruction Type:Provider Instructions for Treatment How to Access Health Informa tion Online using Patient Portal and [employer] Apps Indication:BMI 40.0-44.9, adult Start:10-Oct-2021 Instruction Type:Patient Education Patient Instructions Indication:Cellulitis Start:03-Oct-2021 Instruction Type:Provider Instructions for Treatment Patient Instructions Indication:BMI 40.0-44.9, adult Start:26-Sep-2021 Instruction Type:Provider Instructions for Treatment How to Access Health Informa tion Online using Patient Portal and [employer] Apps Indication:BMI 40.0-44.9, adult Start:26-Sep-2021 Instruction Type:Patient Education Patient Instructions Indication:Nonsmoker Start:10-Aug-2021 Instruction Type:Provider Instructions for Treatment How to Access Health Informa tion Online using Patient Portal and [employer] Apps Indication:Hypertension Start:10-Aug-2021 Instruction Type:Patient Education Patient Instructions Indication:BMI 40.0-44.9, adult Start:09-Aug-2021 Instruction Type:Provider Instructions for Treatment How to Access Health Informa tion Online using Patient Portal and [employer] Apps Indication:BMI 40.0-44.9, adult Start:09-Aug-2021 Instruction Type:Patient Education Patient Instructions Indication:Nonsmoker Start:28-May-2021 Instruction Type:Provider Instructions for Treatment How to Access Health Informa tion Online using Patient Portal and [employer] Apps Indication:Nonsmoker Start:28-May-2021 Instruction Type:Patient Education Patient Instructions Indication:BMI 40.0-44.9, adult Start:04-Apr-2021 Instruction Type:Provider Instructions for Treatment How to Access Health Informa tion Online using Patient Portal and [employer] Apps Indication:BMI 40.0-44.9, adult Start:04-Apr-2021 Instruction Type:Patient Education Patient Instructions Indication:BMI 40.0-44.9, adult Start:20-Mar-2021 Instruction Type:Provider Instructions for Treatment How to Access Health Informa tion Online using Patient Portal and [employer] Apps Indication:BMI 40.0-44.9, adult Start:20-Mar-2021 Instruction Type:Patient Education Patient Instructions Indication:Type 2 diabetes mellitus Start:13-Dec-2020 Instruction Type:Provider Instructions for Treatment How to Access Health Informa tion Online using Patient Portal and [employer] Apps Indication:Type 2 diabetes mellitus Start:13-Dec-2020 Instruction Type:Patient Education Patient Instructions Indication:Type 2 diabetes mellitus Start:15-Sep-2020 Instruction Type:Provider Instructions for Treatment How to Access Health Informa tion Online using Patient Portal and [employer] Apps Indication:Type 2 diabetes mellitus Start:15-Sep-2020 Instruction Type:Patient Education [facility]; [facility] Work Phone: Instructions* Name Dates Details Patient Instructions Indication:Morbid obesity Start:18-Feb-2022 Instruction Type:Provider Instructions for Treatment How to Access Health Informa tion Online using Patient Portal and [employer] Apps Indication:Morbid obesity Start:18-Feb-2022 Instruction Type:Patient Education Patient Instructions Indication:Morbid obesity Start:31-Dec-2021 Instruction Type:Provider Instructions for Treatment How to Access Health Informa tion Online using Patient Portal and [employer] Apps Indication:Morbid obesity Start:31-Dec-2021 Instruction Type:Patient Education Patient Instructions Indication:BMI 40.0-44.9, adult Start:17-Oct-2021 Instruction Type:Provider Instructions for Treatment How to Access Health Informa tion Online using Patient Portal and [employer] Apps Indication:BMI 40.0-44.9, adult Start:17-Oct-2021 Instruction Type:Patient Education Patient Instructions Indication:BMI 40.0-44.9, adult Start:10-Oct-2021 Instruction Type:Provider Instructions for Treatment How to Access Health Informa tion Online using Patient Portal and [employer] Apps Indication:BMI 40.0-44.9, adult Start:10-Oct-2021 Instruction Type:Patient Education Patient Instructions Indication:Cellulitis Start:03-Oct-2021 Instruction Type:Provider Instructions for Treatment Patient Instructions Indication:BMI 40.0-44.9, adult Start:26-Sep-2021 Instruction Type:Provider Instructions for Treatment How to Access Health Informa tion Online using Patient Portal and [employer] Indication:BMI 40.0-44.9, adult Start:26-Sep-2021 Instruction Type:Patient Education Patient Instructions Indication:Nonsmoker Start:10-Aug-2021 Instruction Type:Provider Instructions for Treatment How to Access Health Informa tion Online using Patient Portal and [employer] Apps Indication:Hypertension Start:10-Aug-2021 Instruction Type:Patient Education Patient Instructions Indication:BMI 40.0-44.9, adult Start:09-Aug-2021 Instruction Type:Provider Instructions for Treatment How to Access Health Informa tion Online using Patient Portal and [employer] Apps Indication:BMI 40.0-44.9, adult Start:09-Aug-2021 Instruction Type:Patient Education Patient Instructions Indication:Nonsmoker Start:28-May-2021 Instruction Type:Provider Instructions for Treatment How to Access Health Informa tion Online using Patient Portal and [employer] Apps Indication:Nonsmoker Start:28-May-2021 Instruction Type:Patient Education Patient Instructions Indication:BMI 40.0-44.9, adult Start:04-Apr-2021 Instruction Type:Provider Instructions for Treatment How to Access Health Informa tion Online using Patient Portal and [employer] Indication:BMI 40.0-44.9, adult Start:04-Apr-2021 Instruction Type:Patient Education Patient Instructions Indication:BMI 40.0-44.9, adult Start:20-Mar-2021 Instruction Type:Provider Instructions for Treatment How to Access Health Informa tion Online using Patient Portal and [employer] Apps Indication:BMI 40.0-44.9, adult Start:20-Mar-2021 Instruction Type:Patient Education Patient Instructions Indication:Type 2 diabetes mellitus Start:13-Dec-2020 Instruction Type:Provider Instructions for Treatment How to Access Health Informa tion Online using Patient Portal and [employer] Apps Indication:Type 2 diabetes mellitus Start:13-Dec-2020 Instruction Type:Patient Education Patient Instructions Indication:Type 2 diabetes mellitus Start:15-Sep-2020 Instruction Type:Provider Instructions for Treatment How to Access Health Informa tion Online using Patient Portal and [employer] Indication:Type 2 diabetes mellitus Start:15-Sep-2020 Instruction Type:Patient Education [facility]; [facility] Work Phone: Instructions* Name Dates Details Patient Instructions Indication:Nonsmoker Start:14-Mar-2022 Instruction Type:Provider Instructions for Treatment How to Access Health Informa tion Online using Patient Portal and [employer] Indication:Nonsmoker Start:14-Mar-2022 Instruction Type:Patient Education Patient Instructions Indication:Nonsmoker Start:07-Mar-2022 Instruction Type:Provider Instructions for Treatment How to Access Health Informa tion Online using Patient Portal and [employer] Apps Indication:Nonsmoker Start:07-Mar-2022 Instruction Type:Patient Education Patient Instructions Indication:Morbid obesity Start:18-Feb-2022 Instruction Type:Provider Instructions for Treatment How to Access Health Informa tion Online using Patient Portal and [employer] Apps Indication:Morbid obesity Start:18-Feb-2022 Instruction Type:Patient Education Patient Instructions Indication:Morbid obesity Start:31-Dec-2021 Instruction Type:Provider Instructions for Treatment How to Access Health Informa tion Online using Patient Portal and [employer] Apps Indication:Morbid obesity Start:31-Dec-2021 Instruction Type:Patient Education Patient Instructions Indication:BMI 40.0-44.9, adult Start:17-Oct-2021 Instruction Type:Provider Instructions for Treatment How to Access Health Informa tion Online using Patient Portal and [employer] Indication:BMI 40.0-44.9, adult Start:17-Oct-2021 Instruction Type:Patient Education Patient Instructions Indication:BMI 40.0-44.9, adult Start:10-Oct-2021 Instruction Type:Provider Instructions for Treatment How to Access Health Informa tion Online using Patient Portal and [employer] Indication:BMI 40.0-44.9, adult Start:10-Oct-2021 Instruction Type:Patient Education Patient Instructions Indication:Cellulitis Start:03-Oct-2021 Instruction Type:Provider Instructions for Treatment Patient Instructions Indication:BMI 40.0-44.9, adult Start:26-Sep-2021 Instruction Type:Provider Instructions for Treatment How to Access Health Informa tion Online using Patient Portal and [employer] Apps Indication:BMI 40.0-44.9, adult Start:26-Sep-2021 Instruction Type:Patient Education Patient Instructions Indication:Nonsmoker Start:10-Aug-2021 Instruction Type:Provider Instructions for Treatment How to Access Health Informa tion Online using Patient Portal and [employer] Apps Indication:Hypertension Start:10-Aug-2021 Instruction Type:Patient Education Patient Instructions Indication:BMI 40.0-44.9, adult Start:09-Aug-2021 Instruction Type:Provider Instructions for Treatment How to Access Health Informa tion Online using Patient Portal and [employer] Indication:BMI 40.0-44.9, adult Start:09-Aug-2021 Instruction Type:Patient Education Patient Instructions Indication:Nonsmoker Start:28-May-2021 Instruction Type:Provider Instructions for Treatment How to Access Health Informa tion Online using Patient Portal and [employer] Apps Indication:Nonsmoker Start:28-May-2021 Instruction Type:Patient Education Patient Instructions Indication:BMI 40.0-44.9, adult Start:04-Apr-2021 Instruction Type:Provider Instructions for Treatment How to Access Health Informa tion Online using Patient Portal and [employer] Apps Indication:BMI 40.0-44.9, adult Start:04-Apr-2021 Instruction Type:Patient Education Patient Instructions Indication:BMI 40.0-44.9, adult Start:20-Mar-2021 Instruction Type:Provider Instructions for Treatment How to Access Health Informa tion Online using Patient Portal and [employer] Apps Indication:BMI 40.0-44.9, adult Start:20-Mar-2021 Instruction Type:Patient Education Patient Instructions Indication:Type 2 diabetes mellitus Start:13-Dec-2020 Instruction Type:Provider Instructions for Treatment How to Access Health Informa tion Online using Patient Portal and [employer] Apps Indication:Type 2 diabetes mellitus Start:13-Dec-2020 Instruction Type:Patient Education Patient Instructions Indication:Type 2 diabetes mellitus Start:15-Sep-2020 Instruction Type:Provider Instructions for Treatment How to Access Health Informa tion Online using Patient Portal and [employer] Apps Indication:Type 2 diabetes mellitus Start:15-Sep-2020 Instruction Type:Patient Education [facility]; [facility] Work Phone: Instructions* Name Dates Details Patient Instructions Indication:Nonsmoker Start:14-Mar-2022 Instruction Type:Provider Instructions for Treatment How to Access Health Informa tion Online using Patient Portal and [employer] Apps Indication:Nonsmoker Start:14-Mar-2022 Instruction Type:Patient Education Patient Instructions Indication:Nonsmoker Start:07-Mar-2022 Instruction Type:Provider Instructions for Treatment How to Access Health Informa tion Online using Patient Portal and [employer] Apps Indication:Nonsmoker Start:07-Mar-2022 Instruction Type:Patient Education Patient Instructions Indication:Morbid obesity Start:18-Feb-2022 Instruction Type:Provider Instructions for Treatment How to Access Health Informa tion Online using Patient Portal and [employer] Apps Indication:Morbid obesity Start:18-Feb-2022 Instruction Type:Patient Education Patient Instructions Indication:Morbid obesity Start:31-Dec-2021 Instruction Type:Provider Instructions for Treatment How to Access Health Informa tion Online using Patient Portal and [employer] Apps Indication:Morbid obesity Start:31-Dec-2021 Instruction Type:Patient Education Patient Instructions Indication:BMI 40.0-44.9, adult Start:17-Oct-2021 Instruction Type:Provider Instructions for Treatment How to Access Health Informa tion Online using Patient Portal and [employer] Apps Indication:BMI 40.0-44.9, adult Start:17-Oct-2021 Instruction Type:Patient Education Patient Instructions Indication:BMI 40.0-44.9, adult Start:10-Oct-2021 Instruction Type:Provider Instructions for Treatment How to Access Health Informa tion Online using Patient Portal and [employer] Apps Indication:BMI 40.0-44.9, adult Start:10-Oct-2021 Instruction Type:Patient Education Patient Instructions Indication:Cellulitis Start:03-Oct-2021 Instruction Type:Provider Instructions for Treatment Patient Instructions Indication:BMI 40.0-44.9, adult Start:26-Sep-2021 Instruction Type:Provider Instructions for Treatment How to Access Health Informa tion Online using Patient Portal and [employer] Apps Indication:BMI 40.0-44.9, adult Start:26-Sep-2021 Instruction Type:Patient Education Patient Instructions Indication:Nonsmoker Start:10-Aug-2021 Instruction Type:Provider Instructions for Treatment How to Access Health Informa tion Online using Patient Portal and [employer] Apps Indication:Hypertension Start:10-Aug-2021 Instruction Type:Patient Education Patient Instructions Indication:BMI 40.0-44.9, adult Start:09-Aug-2021 Instruction Type:Provider Instructions for Treatment How to Access Health Informa tion Online using Patient Portal and [employer] Apps Indication:BMI 40.0-44.9, adult Start:09-Aug-2021 Instruction Type:Patient Education Patient Instructions Indication:Nonsmoker Start:28-May-2021 Instruction Type:Provider Instructions for Treatment How to Access Health Informa tion Online using Patient Portal and [employer] Apps Indication:Nonsmoker Start:28-May-2021 Instruction Type:Patient Education Patient Instructions Indication:BMI 40.0-44.9, adult Start:04-Apr-2021 Instruction Type:Provider Instructions for Treatment How to Access Health Informa tion Online using Patient Portal and [employer] Apps Indication:BMI 40.0-44.9, adult Start:04-Apr-2021 Instruction Type:Patient Education Patient Instructions Indication:BMI 40.0-44.9, adult Start:20-Mar-2021 Instruction Type:Provider Instructions for Treatment How to Access Health Informa tion Online using Patient Portal and [employer] Apps Indication:BMI 40.0-44.9, adult Start:20-Mar-2021 Instruction Type:Patient Education Patient Instructions Indication:Type 2 diabetes mellitus Start:13-Dec-2020 Instruction Type:Provider Instructions for Treatment How to Access Health Informa tion Online using Patient Portal and [employer] Apps Indication:Type 2 diabetes mellitus Start:13-Dec-2020 Instruction Type:Patient Education Patient Instructions Indication:Type 2 diabetes mellitus Start:15-Sep-2020 Instruction Type:Provider Instructions for Treatment How to Access Health Informa tion Online using Patient Portal and [employer] Apps Indication:Type 2 diabetes mellitus Start:15-Sep-2020 Instruction Type:Patient Education [facility]; [facility] Work Phone: Instructions* Name Dates Details Patient Instructions Indication:Nonsmoker Start:14-Mar-2022 Instruction Type:Provider Instructions for Treatment How to Access Health Informa tion Online using Patient Portal and [employer] Apps Indication:Nonsmoker Start:14-Mar-2022 Instruction Type:Patient Education Patient Instructions Indication:Nonsmoker Start:07-Mar-2022 Instruction Type:Provider Instructions for Treatment How to Access Health Informa tion Online using Patient Portal and [employer] Apps Indication:Nonsmoker Start:07-Mar-2022 Instruction Type:Patient Education Patient Instructions Indication:Morbid obesity Start:18-Feb-2022 Instruction Type:Provider Instructions for Treatment How to Access Health Informa tion Online using Patient Portal and [employer] Apps Indication:Morbid obesity Start:18-Feb-2022 Instruction Type:Patient Education Patient Instructions Indication:Morbid obesity Start:31-Dec-2021 Instruction Type:Provider Instructions for Treatment How to Access Health Informa tion Online using Patient Portal and [employer] Apps Indication:Morbid obesity Start:31-Dec-2021 Instruction Type:Patient Education Patient Instructions Indication:BMI 40.0-44.9, adult Start:17-Oct-2021 Instruction Type:Provider Instructions for Treatment How to Access Health Informa tion Online using Patient Portal and [employer] Apps Indication:BMI 40.0-44.9, adult Start:17-Oct-2021 Instruction Type:Patient Education Patient Instructions Indication:BMI 40.0-44.9, adult Start:10-Oct-2021 Instruction Type:Provider Instructions for Treatment How to Access Health Informa tion Online using Patient Portal and [employer] Apps Indication:BMI 40.0-44.9, adult Start:10-Oct-2021 Instruction Type:Patient Education Patient Instructions Indication:Cellulitis Start:03-Oct-2021 Instruction Type:Provider Instructions for Treatment Patient Instructions Indication:BMI 40.0-44.9, adult Start:26-Sep-2021 Instruction Type:Provider Instructions for Treatment How to Access Health Informa tion Online using Patient Portal and [employer] Apps Indication:BMI 40.0-44.9, adult Start:26-Sep-2021 Instruction Type:Patient Education Patient Instructions Indication:Nonsmoker Start:10-Aug-2021 Instruction Type:Provider Instructions for Treatment How to Access Health Informa tion Online using Patient Portal and [employer] Apps Indication:Hypertension Start:10-Aug-2021 Instruction Type:Patient Education Patient Instructions Indication:BMI 40.0-44.9, adult Start:09-Aug-2021 Instruction Type:Provider Instructions for Treatment How to Access Health Informa tion Online using Patient Portal and [employer] Apps Indication:BMI 40.0-44.9, adult Start:09-Aug-2021 Instruction Type:Patient Education Patient Instructions Indication:Nonsmoker Start:28-May-2021 Instruction Type:Provider Instructions for Treatment How to Access Health Informa tion Online using Patient Portal and [employer] Apps Indication:Nonsmoker Start:28-May-2021 Instruction Type:Patient Education Patient Instructions Indication:BMI 40.0-44.9, adult Start:04-Apr-2021 Instruction Type:Provider Instructions for Treatment How to Access Health Informa tion Online using Patient Portal and [employer] Apps Indication:BMI 40.0-44.9, adult Start:04-Apr-2021 Instruction Type:Patient Education Patient Instructions Indication:BMI 40.0-44.9, adult Start:20-Mar-2021 Instruction Type:Provider Instructions for Treatment How to Access Health Informa tion Online using Patient Portal and [employer] Apps Indication:BMI 40.0-44.9, adult Start:20-Mar-2021 Instruction Type:Patient Education Patient Instructions Indication:Type 2 diabetes mellitus Start:13-Dec-2020 Instruction Type:Provider Instructions for Treatment How to Access Health Informa tion Online using Patient Portal and [employer] Apps Indication:Type 2 diabetes mellitus Start:13-Dec-2020 Instruction Type:Patient Education Patient Instructions Indication:Type 2 diabetes mellitus Start:15-Sep-2020 Instruction Type:Provider Instructions for Treatment How to Access Health Informa tion Online using Patient Portal and [employer] Apps Indication:Type 2 diabetes mellitus Start:15-Sep-2020 Instruction Type:Patient Education [facility]; [facility] Work Phone: Instructions* Name Dates Details Patient Instructions Indication:Nonsmoker Start:14-Mar-2022 Instruction Type:Provider Instructions for Treatment How to Access Health Informa tion Online using Patient Portal and [employer] Apps Indication:Nonsmoker Start:14-Mar-2022 Instruction Type:Patient Education Patient Instructions Indication:Nonsmoker Start:07-Mar-2022 Instruction Type:Provider Instructions for Treatment How to Access Health Informa tion Online using Patient Portal and [employer] Apps Indication:Nonsmoker Start:07-Mar-2022 Instruction Type:Patient Education Patient Instructions Indication:Morbid obesity Start:18-Feb-2022 Instruction Type:Provider Instructions for Treatment How to Access Health Informa tion Online using Patient Portal and [employer] Apps Indication:Morbid obesity Start:18-Feb-2022 Instruction Type:Patient Education Patient Instructions Indication:Morbid obesity Start:31-Dec-2021 Instruction Type:Provider Instructions for Treatment How to Access Health Informa tion Online using Patient Portal and [employer] Apps Indication:Morbid obesity Start:31-Dec-2021 Instruction Type:Patient Education Patient Instructions Indication:BMI 40.0-44.9, adult Start:17-Oct-2021 Instruction Type:Provider Instructions for Treatment How to Access Health Informa tion Online using Patient Portal and [employer] Apps Indication:BMI 40.0-44.9, adult Start:17-Oct-2021 Instruction Type:Patient Education Patient Instructions Indication:BMI 40.0-44.9, adult Start:10-Oct-2021 Instruction Type:Provider Instructions for Treatment How to Access Health Informa tion Online using Patient Portal and [employer] Apps Indication:BMI 40.0-44.9, adult Start:10-Oct-2021 Instruction Type:Patient Education Patient Instructions Indication:Cellulitis Start:03-Oct-2021 Instruction Type:Provider Instructions for Treatment Patient Instructions Indication:BMI 40.0-44.9, adult Start:26-Sep-2021 Instruction Type:Provider Instructions for Treatment How to Access Health Informa tion Online using Patient Portal and [employer] Apps Indication:BMI 40.0-44.9, adult Start:26-Sep-2021 Instruction Type:Patient Education Patient Instructions Indication:Nonsmoker Start:10-Aug-2021 Instruction Type:Provider Instructions for Treatment How to Access Health Informa tion Online using Patient Portal and [employer] Apps Indication:Hypertension Start:10-Aug-2021 Instruction Type:Patient Education Patient Instructions Indication:BMI 40.0-44.9, adult Start:09-Aug-2021 Instruction Type:Provider Instructions for Treatment How to Access Health Informa tion Online using Patient Portal and [employer] Apps Indication:BMI 40.0-44.9, adult Start:09-Aug-2021 Instruction Type:Patient Education Patient Instructions Indication:Nonsmoker Start:28-May-2021 Instruction Type:Provider Instructions for Treatment How to Access Health Informa tion Online using Patient Portal and [employer] Apps Indication:Nonsmoker Start:28-May-2021 Instruction Type:Patient Education Patient Instructions Indication:BMI 40.0-44.9, adult Start:04-Apr-2021 Instruction Type:Provider Instructions for Treatment How to Access Health Informa tion Online using Patient Portal and [employer] Apps Indication:BMI 40.0-44.9, adult Start:04-Apr-2021 Instruction Type:Patient Education Patient Instructions Indication:BMI 40.0-44.9, adult Start:20-Mar-2021 Instruction Type:Provider Instructions for Treatment How to Access Health Informa tion Online using Patient Portal and [employer] Apps Indication:BMI 40.0-44.9, adult Start:20-Mar-2021 Instruction Type:Patient Education Patient Instructions Indication:Type 2 diabetes mellitus Start:13-Dec-2020 Instruction Type:Provider Instructions for Treatment How to Access Health Informa tion Online using Patient Portal and [employer] Apps Indication:Type 2 diabetes mellitus Start:13-Dec-2020 Instruction Type:Patient Education Patient Instructions Indication:Type 2 diabetes mellitus Start:15-Sep-2020 Instruction Type:Provider Instructions for Treatment How to Access Health Informa tion Online using Patient Portal and [employer] Apps Indication:Type 2 diabetes mellitus Start:15-Sep-2020 Instruction Type:Patient Education [facility]; [facility] Work Phone: Instructions* Name Dates Details Patient Instructions Indication:Nonsmoker Start:10-May-2022 Instruction Type:Provider Instructions for Treatment How to Access Health Informa tion Online using Patient Portal and [employer] Apps Indication:Nonsmoker Start:10-May-2022 Instruction Type:Patient Education Patient Instructions Indication:Nonsmoker Start:14-Mar-2022 Instruction Type:Provider Instructions for Treatment How to Access Health Informa tion Online using Patient Portal and [employer] Apps Indication:Nonsmoker Start:14-Mar-2022 Instruction Type:Patient Education Patient Instructions Indication:Nonsmoker Start:07-Mar-2022 Instruction Type:Provider Instructions for Treatment How to Access Health Informa tion Online using Patient Portal and [employer] Apps Indication:Nonsmoker Start:07-Mar-2022 Instruction Type:Patient Education Patient Instructions Indication:Morbid obesity Start:18-Feb-2022 Instruction Type:Provider Instructions for Treatment How to Access Health Informa tion Online using Patient Portal and [employer] Apps Indication:Morbid obesity Start:18-Feb-2022 Instruction Type:Patient Education Patient Instructions Indication:Morbid obesity Start:31-Dec-2021 Instruction Type:Provider Instructions for Treatment How to Access Health Informa tion Online using Patient Portal and [employer] Apps Indication:Morbid obesity Start:31-Dec-2021 Instruction Type:Patient Education Patient Instructions Indication:BMI 40.0-44.9, adult Start:17-Oct-2021 Instruction Type:Provider Instructions for Treatment How to Access Health Informa tion Online using Patient Portal and [employer] Apps Indication:BMI 40.0-44.9, adult Start:17-Oct-2021 Instruction Type:Patient Education Patient Instructions Indication:BMI 40.0-44.9, adult Start:10-Oct-2021 Instruction Type:Provider Instructions for Treatment How to Access Health Informa tion Online using Patient Portal and [employer] Apps Indication:BMI 40.0-44.9, adult Start:10-Oct-2021 Instruction Type:Patient Education Patient Instructions Indication:Cellulitis Start:03-Oct-2021 Instruction Type:Provider Instructions for Treatment Patient Instructions Indication:BMI 40.0-44.9, adult Start:26-Sep-2021 Instruction Type:Provider Instructions for Treatment How to Access Health Informa tion Online using Patient Portal and [employer] Apps Indication:BMI 40.0-44.9, adult Start:26-Sep-2021 Instruction Type:Patient Education Patient Instructions Indication:Nonsmoker Start:10-Aug-2021 Instruction Type:Provider Instructions for Treatment How to Access Health Informa tion Online using Patient Portal and [employer] Apps Indication:Hypertension Start:10-Aug-2021 Instruction Type:Patient Education Patient Instructions Indication:BMI 40.0-44.9, adult Start:09-Aug-2021 Instruction Type:Provider Instructions for Treatment How to Access Health Informa tion Online using Patient Portal and [employer] Apps Indication:BMI 40.0-44.9, adult Start:09-Aug-2021 Instruction Type:Patient Education Patient Instructions Indication:Nonsmoker Start:28-May-2021 Instruction Type:Provider Instructions for Treatment How to Access Health Informa tion Online using Patient Portal and [employer] Apps Indication:Nonsmoker Start:28-May-2021 Instruction Type:Patient Education Patient Instructions Indication:BMI 40.0-44.9, adult Start:04-Apr-2021 Instruction Type:Provider Instructions for Treatment How to Access Health Informa tion Online using Patient Portal and [employer] Apps Indication:BMI 40.0-44.9, adult Start:04-Apr-2021 Instruction Type:Patient Education Patient Instructions Indication:BMI 40.0-44.9, adult Start:20-Mar-2021 Instruction Type:Provider Instructions for Treatment How to Access Health Informa tion Online using Patient Portal and [employer] Apps Indication:BMI 40.0-44.9, adult Start:20-Mar-2021 Instruction Type:Patient Education Patient Instructions Indication:Type 2 diabetes mellitus Start:13-Dec-2020 Instruction Type:Provider Instructions for Treatment How to Access Health Informa tion Online using Patient Portal and [employer] Apps Indication:Type 2 diabetes mellitus Start:13-Dec-2020 Instruction Type:Patient Education Patient Instructions Indication:Type 2 diabetes mellitus Start:15-Sep-2020 Instruction Type:Provider Instructions for Treatment How to Access Health Informa tion Online using Patient Portal and [employer] Apps Indication:Type 2 diabetes mellitus Start:15-Sep-2020 Instruction Type:Patient Education [facility]; [facility] Work Phone: Instructions* Name Dates Details Patient Instructions Indication:Nonsmoker Start:10-May-2022 Instruction Type:Provider Instructions for Treatment How to Access Health Informa tion Online using Patient Portal and [employer] Apps Indication:Nonsmoker Start:10-May-2022 Instruction Type:Patient Education Patient Instructions Indication:Nonsmoker Start:14-Mar-2022 Instruction Type:Provider Instructions for Treatment How to Access Health Informa tion Online using Patient Portal and [employer] Apps Indication:Nonsmoker Start:14-Mar-2022 Instruction Type:Patient Education Patient Instructions Indication:Nonsmoker Start:07-Mar-2022 Instruction Type:Provider Instructions for Treatment How to Access Health Informa tion Online using Patient Portal and [employer] Apps Indication:Nonsmoker Start:07-Mar-2022 Instruction Type:Patient Education Patient Instructions Indication:Morbid obesity Start:18-Feb-2022 Instruction Type:Provider Instructions for Treatment How to Access Health Informa tion Online using Patient Portal and [employer] Apps Indication:Morbid obesity Start:18-Feb-2022 Instruction Type:Patient Education Patient Instructions Indication:Morbid obesity Start:31-Dec-2021 Instruction Type:Provider Instructions for Treatment How to Access Health Informa tion Online using Patient Portal and [employer] Apps Indication:Morbid obesity Start:31-Dec-2021 Instruction Type:Patient Education Patient Instructions Indication:BMI 40.0-44.9, adult Start:17-Oct-2021 Instruction Type:Provider Instructions for Treatment How to Access Health Informa tion Online using Patient Portal and [employer] Apps Indication:BMI 40.0-44.9, adult Start:17-Oct-2021 Instruction Type:Patient Education Patient Instructions Indication:BMI 40.0-44.9, adult Start:10-Oct-2021 Instruction Type:Provider Instructions for Treatment How to Access Health Informa tion Online using Patient Portal and [employer] Apps Indication:BMI 40.0-44.9, adult Start:10-Oct-2021 Instruction Type:Patient Education Patient Instructions Indication:Cellulitis Start:03-Oct-2021 Instruction Type:Provider Instructions for Treatment Patient Instructions Indication:BMI 40.0-44.9, adult Start:26-Sep-2021 Instruction Type:Provider Instructions for Treatment How to Access Health Informa tion Online using Patient Portal and [employer] Apps Indication:BMI 40.0-44.9, adult Start:26-Sep-2021 Instruction Type:Patient Education Patient Instructions Indication:Nonsmoker Start:10-Aug-2021 Instruction Type:Provider Instructions for Treatment How to Access Health Informa tion Online using Patient Portal and [employer] Apps Indication:Hypertension Start:10-Aug-2021 Instruction Type:Patient Education Patient Instructions Indication:BMI 40.0-44.9, adult Start:09-Aug-2021 Instruction Type:Provider Instructions for Treatment How to Access Health Informa tion Online using Patient Portal and [employer] Apps Indication:BMI 40.0-44.9, adult Start:09-Aug-2021 Instruction Type:Patient Education Patient Instructions Indication:Nonsmoker Start:28-May-2021 Instruction Type:Provider Instructions for Treatment How to Access Health Informa tion Online using Patient Portal and [employer] Apps Indication:Nonsmoker Start:28-May-2021 Instruction Type:Patient Education Patient Instructions Indication:BMI 40.0-44.9, adult Start:04-Apr-2021 Instruction Type:Provider Instructions for Treatment How to Access Health Informa tion Online using Patient Portal and [employer] Apps Indication:BMI 40.0-44.9, adult Start:04-Apr-2021 Instruction Type:Patient Education Patient Instructions Indication:BMI 40.0-44.9, adult Start:20-Mar-2021 Instruction Type:Provider Instructions for Treatment How to Access Health Informa tion Online using Patient Portal and [employer] Apps Indication:BMI 40.0-44.9, adult Start:20-Mar-2021 Instruction Type:Patient Education Patient Instructions Indication:Type 2 diabetes mellitus Start:13-Dec-2020 Instruction Type:Provider Instructions for Treatment How to Access Health Informa tion Online using Patient Portal and [employer]rd [employer] Apps Indication:Type 2 diabetes mellitus Start:13-Dec-2020 Instruction Type:Patient Education Patient Instructions Indication:Type 2 diabetes mellitus Start:15-Sep-2020 Instruction Type:Provider Instructions for Treatment How to Access Health Informa tion Online using Patient Portal and [employer]rd [employer] Apps Indication:Type 2 diabetes mellitus Start:15-Sep-2020 Instruction Type:Patient Education [facility]; [facility] Work Phone: Instructions* Name Dates Details Patient Instructions Indication:Nonsmoker Start:10-May-2022 Instruction Type:Provider Instructions for Treatment How to Access Health Informa tion Online using Patient Portal and 3rd [employer] Apps Indication:Nonsmoker Start:10-May-2022 Instruction Type:Patient Education Patient Instructions Indication:Nonsmoker Start:14-Mar-2022 Instruction Type:Provider Instructions for Treatment How to Access Health Informa tion Online using Patient Portal and 3rd [employer] Apps Indication:Nonsmoker Start:14-Mar-2022 Instruction Type:Patient Education Patient Instructions Indication:Nonsmoker Start:07-Mar-2022 Instruction Type:Provider Instructions for Treatment How to Access Health Informa tion Online using Patient Portal and [employer]rd [employer] Apps Indication:Nonsmoker Start:07-Mar-2022 Instruction Type:Patient Education Patient Instructions Indication:Morbid obesity Start:18-Feb-2022 Instruction Type:Provider Instructions for Treatment How to Access Health Informa tion Online using Patient Portal and 3rd [employer] Apps Indication:Morbid obesity Start:18-Feb-2022 Instruction Type:Patient Education Patient Instructions Indication:Morbid obesity Start:31-Dec-2021 Instruction Type:Provider Instructions for Treatment How to Access Health Informa tion Online using Patient Portal and 3rd [employer] Apps Indication:Morbid obesity Start:31-Dec-2021 Instruction Type:Patient Education Patient Instructions Indication:BMI 40.0-44.9, adult Start:17-Oct-2021 Instruction Type:Provider Instructions for Treatment How to Access Health Informa tion Online using Patient Portal and [employer]rd [employer] Apps Indication:BMI 40.0-44.9, adult Start:17-Oct-2021 Instruction Type:Patient Education Patient Instructions Indication:BMI 40.0-44.9, adult Start:10-Oct-2021 Instruction Type:Provider Instructions for Treatment How to Access Health Informa tion Online using Patient Portal and [employer]rd [employer] Apps Indication:BMI 40.0-44.9, adult Start:10-Oct-2021 Instruction Type:Patient Education Patient Instructions Indication:Cellulitis Start:03-Oct-2021 Instruction Type:Provider Instructions for Treatment Patient Instructions Indication:BMI 40.0-44.9, adult Start:26-Sep-2021 Instruction Type:Provider Instructions for Treatment How to Access Health Informa tion Online using Patient Portal and [employer]rd [employer] Apps Indication:BMI 40.0-44.9, adult Start:26-Sep-2021 Instruction Type:Patient Education Patient Instructions Indication:Nonsmoker Start:10-Aug-2021 Instruction Type:Provider Instructions for Treatment How to Access Health Informa tion Online using Patient Portal and 3rd [employer] Apps Indication:Hypertension Start:10-Aug-2021 Instruction Type:Patient Education Patient Instructions Indication:BMI 40.0-44.9, adult Start:09-Aug-2021 Instruction Type:Provider Instructions for Treatment How to Access Health Informa tion Online using Patient Portal and [employer]rd [employer] Apps Indication:BMI 40.0-44.9, adult Start:09-Aug-2021 Instruction Type:Patient Education Patient Instructions Indication:Nonsmoker Start:28-May-2021 Instruction Type:Provider Instructions for Treatment How to Access Health Informa tion Online using Patient Portal and 3rd [employer] Apps Indication:Nonsmoker Start:28-May-2021 Instruction Type:Patient Education Patient Instructions Indication:BMI 40.0-44.9, adult Start:04-Apr-2021 Instruction Type:Provider Instructions for Treatment How to Access Health Informa tion Online using Patient Portal and 3rd [employer] Apps Indication:BMI 40.0-44.9, adult Start:04-Apr-2021 Instruction Type:Patient Education Patient Instructions Indication:BMI 40.0-44.9, adult Start:20-Mar-2021 Instruction Type:Provider Instructions for Treatment How to Access Health Informa tion Online using Patient Portal and [employer]rd [employer] Apps Indication:BMI 40.0-44.9, adult Start:20-Mar-2021 Instruction Type:Patient Education Patient Instructions Indication:Type 2 diabetes mellitus Start:13-Dec-2020 Instruction Type:Provider Instructions for Treatment How to Access Health Informa tion Online using Patient Portal and [employer]rd [employer] Apps Indication:Type 2 diabetes mellitus Start:13-Dec-2020 Instruction Type:Patient Education Patient Instructions Indication:Type 2 diabetes mellitus Start:15-Sep-2020 Instruction Type:Provider Instructions for Treatment How to Access Health Informa tion Online using Patient Portal and [employer]rd [employer] Apps Indication:Type 2 diabetes mellitus Start:15-Sep-2020 Instruction Type:Patient Education [facility]; [facility] Work Phone: Instructions* Name Dates Details Patient Instructions Indication:Nonsmoker Start:10-May-2022 Instruction Type:Provider Instructions for Treatment How to Access Health Informa tion Online using Patient Portal and [employer]rd [employer] Apps Indication:Nonsmoker Start:10-May-2022 Instruction Type:Patient Education Patient Instructions Indication:Nonsmoker Start:14-Mar-2022 Instruction Type:Provider Instructions for Treatment How to Access Health Informa tion Online using Patient Portal and [employer]rd [employer] Apps Indication:Nonsmoker Start:14-Mar-2022 Instruction Type:Patient Education Patient Instructions Indication:Nonsmoker Start:07-Mar-2022 Instruction Type:Provider Instructions for Treatment How to Access Health Informa tion Online using Patient Portal and [employer]rd [employer] Apps Indication:Nonsmoker Start:07-Mar-2022 Instruction Type:Patient Education Patient Instructions Indication:Morbid obesity Start:18-Feb-2022 Instruction Type:Provider Instructions for Treatment How to Access Health Informa tion Online using Patient Portal and 3rd [employer] Apps Indication:Morbid obesity Start:18-Feb-2022 Instruction Type:Patient Education Patient Instructions Indication:Morbid obesity Start:31-Dec-2021 Instruction Type:Provider Instructions for Treatment How to Access Health Informa tion Online using Patient Portal and 3rd [employer] Apps Indication:Morbid obesity Start:31-Dec-2021 Instruction Type:Patient Education Patient Instructions Indication:BMI 40.0-44.9, adult Start:17-Oct-2021 Instruction Type:Provider Instructions for Treatment How to Access Health Informa tion Online using Patient Portal and [employer]rd [employer] Apps Indication:BMI 40.0-44.9, adult Start:17-Oct-2021 Instruction Type:Patient Education Patient Instructions Indication:BMI 40.0-44.9, adult Start:10-Oct-2021 Instruction Type:Provider Instructions for Treatment How to Access Health Informa tion Online using Patient Portal and 3rd [employer] Apps Indication:BMI 40.0-44.9, adult Start:10-Oct-2021 Instruction Type:Patient Education Patient Instructions Indication:Cellulitis Start:03-Oct-2021 Instruction Type:Provider Instructions for Treatment Patient Instructions Indication:BMI 40.0-44.9, adult Start:26-Sep-2021 Instruction Type:Provider Instructions for Treatment How to Access Health Informa tion Online using Patient Portal and 3rd [employer] Apps Indication:BMI 40.0-44.9, adult Start:26-Sep-2021 Instruction Type:Patient Education Patient Instructions Indication:Nonsmoker Start:10-Aug-2021 Instruction Type:Provider Instructions for Treatment How to Access Health Informa tion Online using Patient Portal and 3rd [employer] Apps Indication:Hypertension Start:10-Aug-2021 Instruction Type:Patient Education Patient Instructions Indication:BMI 40.0-44.9, adult Start:09-Aug-2021 Instruction Type:Provider Instructions for Treatment How to Access Health Informa tion Online using Patient Portal and 3rd [employer] Apps Indication:BMI 40.0-44.9, adult Start:09-Aug-2021 Instruction Type:Patient Education Patient Instructions Indication:Nonsmoker Start:28-May-2021 Instruction Type:Provider Instructions for Treatment How to Access Health Informa tion Online using Patient Portal and [employer]rd [employer] Apps Indication:Nonsmoker Start:28-May-2021 Instruction Type:Patient Education Patient Instructions Indication:BMI 40.0-44.9, adult Start:04-Apr-2021 Instruction Type:Provider Instructions for Treatment How to Access Health Informa tion Online using Patient Portal and 3rd [employer] Apps Indication:BMI 40.0-44.9, adult Start:04-Apr-2021 Instruction Type:Patient Education Patient Instructions Indication:BMI 40.0-44.9, adult Start:20-Mar-2021 Instruction Type:Provider Instructions for Treatment How to Access Health Informa tion Online using Patient Portal and 3rd [employer] Apps Indication:BMI 40.0-44.9, adult Start:20-Mar-2021 Instruction Type:Patient Education Patient Instructions Indication:Type 2 diabetes mellitus Start:13-Dec-2020 Instruction Type:Provider Instructions for Treatment How to Access Health Informa tion Online using Patient Portal and [employer] Apps Indication:Type 2 diabetes mellitus Start:13-Dec-2020 Instruction Type:Patient Education Patient Instructions Indication:Type 2 diabetes mellitus Start:15-Sep-2020 Instruction Type:Provider Instructions for Treatment How to Access Health Informa tion Online using Patient Portal and [employer]rd [employer] Apps Indication:Type 2 diabetes mellitus Start:15-Sep-2020 Instruction Type:Patient Education [facility]; [facility] Work Phone: Instructions* Name Dates Details Patient Instructions Indication:Nonsmoker Start:10-May-2022 Instruction Type:Provider Instructions for Treatment How to Access Health Informa tion Online using Patient Portal and 3rd [employer] Apps Indication:Nonsmoker Start:10-May-2022 Instruction Type:Patient Education Patient Instructions Indication:Nonsmoker Start:14-Mar-2022 Instruction Type:Provider Instructions for Treatment How to Access Health Informa tion Online using Patient Portal and 3rd [employer] Apps Indication:Nonsmoker Start:14-Mar-2022 Instruction Type:Patient Education Patient Instructions Indication:Nonsmoker Start:07-Mar-2022 Instruction Type:Provider Instructions for Treatment How to Access Health Informa tion Online using Patient Portal and [employer]rd [employer] Apps Indication:Nonsmoker Start:07-Mar-2022 Instruction Type:Patient Education Patient Instructions Indication:Morbid obesity Start:18-Feb-2022 Instruction Type:Provider Instructions for Treatment How to Access Health Informa tion Online using Patient Portal and [employer]rd [employer] Apps Indication:Morbid obesity Start:18-Feb-2022 Instruction Type:Patient Education Patient Instructions Indication:Morbid obesity Start:31-Dec-2021 Instruction Type:Provider Instructions for Treatment How to Access Health Informa tion Online using Patient Portal and 3rd [employer] Apps Indication:Morbid obesity Start:31-Dec-2021 Instruction Type:Patient Education Patient Instructions Indication:BMI 40.0-44.9, adult Start:17-Oct-2021 Instruction Type:Provider Instructions for Treatment How to Access Health Informa tion Online using Patient Portal and [employer] Apps Indication:BMI 40.0-44.9, adult Start:17-Oct-2021 Instruction Type:Patient Education Patient Instructions Indication:BMI 40.0-44.9, adult Start:10-Oct-2021 Instruction Type:Provider Instructions for Treatment How to Access Health Informa tion Online using Patient Portal and 3rd [employer] Apps Indication:BMI 40.0-44.9, adult Start:10-Oct-2021 Instruction Type:Patient Education Patient Instructions Indication:Cellulitis Start:03-Oct-2021 Instruction Type:Provider Instructions for Treatment Patient Instructions Indication:BMI 40.0-44.9, adult Start:26-Sep-2021 Instruction Type:Provider Instructions for Treatment How to Access Health Informa tion Online using Patient Portal and 3rd [employer] Apps Indication:BMI 40.0-44.9, adult Start:26-Sep-2021 Instruction Type:Patient Education Patient Instructions Indication:Nonsmoker Start:10-Aug-2021 Instruction Type:Provider Instructions for Treatment How to Access Health Informa tion Online using Patient Portal and 3[employer] Apps Indication:Hypertension Start:10-Aug-2021 Instruction Type:Patient Education Patient Instructions Indication:BMI 40.0-44.9, adult Start:09-Aug-2021 Instruction Type:Provider Instructions for Treatment How to Access Health Informa tion Online using Patient Portal and 3rd [employer] Apps Indication:BMI 40.0-44.9, adult Start:09-Aug-2021 Instruction Type:Patient Education Patient Instructions Indication:Nonsmoker Start:28-May-2021 Instruction Type:Provider Instructions for Treatment How to Access Health Informa tion Online using Patient Portal and 3[employer] Apps Indication:Nonsmoker Start:28-May-2021 Instruction Type:Patient Education Patient Instructions Indication:BMI 40.0-44.9, adult Start:04-Apr-2021 Instruction Type:Provider Instructions for Treatment How to Access Health Informa tion Online using Patient Portal and 3[employer] Apps Indication:BMI 40.0-44.9, adult Start:04-Apr-2021 Instruction Type:Patient Education Patient Instructions Indication:BMI 40.0-44.9, adult Start:20-Mar-2021 Instruction Type:Provider Instructions for Treatment How to Access Health Informa tion Online using Patient Portal and [employer] Apps Indication:BMI 40.0-44.9, adult Start:20-Mar-2021 Instruction Type:Patient Education Patient Instructions Indication:Type 2 diabetes mellitus Start:13-Dec-2020 Instruction Type:Provider Instructions for Treatment How to Access Health Informa tion Online using Patient Portal and [employer] Apps Indication:Type 2 diabetes mellitus Start:13-Dec-2020 Instruction Type:Patient Education Patient Instructions Indication:Type 2 diabetes mellitus Start:15-Sep-2020 Instruction Type:Provider Instructions for Treatment How to Access Health Informa tion Online using Patient Portal and 3rd [employer] Apps Indication:Type 2 diabetes mellitus Start:15-Sep-2020 Instruction Type:Patient Education [facility]; [facility] Work Phone: Instructions* Name Dates Details Patient Instructions Indication:Nonsmoker Start:10-May-2022 Instruction Type:Provider Instructions for Treatment How to Access Health Informa tion Online using Patient Portal and 3rd [employer] Apps Indication:Nonsmoker Start:10-May-2022 Instruction Type:Patient Education Patient Instructions Indication:Nonsmoker Start:14-Mar-2022 Instruction Type:Provider Instructions for Treatment How to Access Health Informa tion Online using Patient Portal and 3rd [employer] Apps Indication:Nonsmoker Start:14-Mar-2022 Instruction Type:Patient Education Patient Instructions Indication:Nonsmoker Start:07-Mar-2022 Instruction Type:Provider Instructions for Treatment How to Access Health Informa tion Online using Patient Portal and 3rd [employer] Apps Indication:Nonsmoker Start:07-Mar-2022 Instruction Type:Patient Education Patient Instructions Indication:Morbid obesity Start:18-Feb-2022 Instruction Type:Provider Instructions for Treatment How to Access Health Informa tion Online using Patient Portal and 3rd [employer] Apps Indication:Morbid obesity Start:18-Feb-2022 Instruction Type:Patient Education Patient Instructions Indication:Morbid obesity Start:31-Dec-2021 Instruction Type:Provider Instructions for Treatment How to Access Health Informa tion Online using Patient Portal and 3rd [employer] Apps Indication:Morbid obesity Start:31-Dec-2021 Instruction Type:Patient Education Patient Instructions Indication:BMI 40.0-44.9, adult Start:17-Oct-2021 Instruction Type:Provider Instructions for Treatment How to Access Health Informa tion Online using Patient Portal and [employer]rd [employer] Apps Indication:BMI 40.0-44.9, adult Start:17-Oct-2021 Instruction Type:Patient Education Patient Instructions Indication:BMI 40.0-44.9, adult Start:10-Oct-2021 Instruction Type:Provider Instructions for Treatment How to Access Health Informa tion Online using Patient Portal and 3rd [employer] Apps Indication:BMI 40.0-44.9, adult Start:10-Oct-2021 Instruction Type:Patient Education Patient Instructions Indication:Cellulitis Start:03-Oct-2021 Instruction Type:Provider Instructions for Treatment Patient Instructions Indication:BMI 40.0-44.9, adult Start:26-Sep-2021 Instruction Type:Provider Instructions for Treatment How to Access Health Informa tion Online using Patient Portal and 3rd [employer] Apps Indication:BMI 40.0-44.9, adult Start:26-Sep-2021 Instruction Type:Patient Education Patient Instructions Indication:Nonsmoker Start:10-Aug-2021 Instruction Type:Provider Instructions for Treatment How to Access Health Informa tion Online using Patient Portal and 3rd [employer] Apps Indication:Hypertension Start:10-Aug-2021 Instruction Type:Patient Education Patient Instructions Indication:BMI 40.0-44.9, adult Start:09-Aug-2021 Instruction Type:Provider Instructions for Treatment How to Access Health Informa tion Online using Patient Portal and 3rd [employer] Apps Indication:BMI 40.0-44.9, adult Start:09-Aug-2021 Instruction Type:Patient Education Patient Instructions Indication:Nonsmoker Start:28-May-2021 Instruction Type:Provider Instructions for Treatment How to Access Health Informa tion Online using Patient Portal and 3rd [employer] Apps Indication:Nonsmoker Start:28-May-2021 Instruction Type:Patient Education Patient Instructions Indication:BMI 40.0-44.9, adult Start:04-Apr-2021 Instruction Type:Provider Instructions for Treatment How to Access Health Informa tion Online using Patient Portal and 3rd [employer] Apps Indication:BMI 40.0-44.9, adult Start:04-Apr-2021 Instruction Type:Patient Education Patient Instructions Indication:BMI 40.0-44.9, adult Start:20-Mar-2021 Instruction Type:Provider Instructions for Treatment How to Access Health Informa tion Online using Patient Portal and 3rd [employer] Apps Indication:BMI 40.0-44.9, adult Start:20-Mar-2021 Instruction Type:Patient Education Patient Instructions Indication:Type 2 diabetes mellitus Start:13-Dec-2020 Instruction Type:Provider Instructions for Treatment How to Access Health Informa tion Online using Patient Portal and 3rd [employer] Apps Indication:Type 2 diabetes mellitus Start:13-Dec-2020 Instruction Type:Patient Education Patient Instructions Indication:Type 2 diabetes mellitus Start:15-Sep-2020 Instruction Type:Provider Instructions for Treatment How to Access Health Informa tion Online using Patient Portal and [employer]rd [employer] Apps Indication:Type 2 diabetes mellitus Start:15-Sep-2020 Instruction Type:Patient Education [facility]; [facility] Work Phone: Instructions* Name Dates Details Patient Instructions Indication:Nonsmoker Start:10-Jun-2022 Instruction Type:Provider Instructions for Treatment How to Access Health Informa tion Online using Patient Portal and 3rd [employer] Apps Indication:Nonsmoker Start:10-Jun-2022 Instruction Type:Patient Education Patient Instructions Indication:Nonsmoker Start:10-May-2022 Instruction Type:Provider Instructions for Treatment How to Access Health Informa tion Online using Patient Portal and 3rd [employer] Apps Indication:Nonsmoker Start:10-May-2022 Instruction Type:Patient Education Patient Instructions Indication:Nonsmoker Start:14-Mar-2022 Instruction Type:Provider Instructions for Treatment How to Access Health Informa tion Online using Patient Portal and 3rd [employer] Apps Indication:Nonsmoker Start:14-Mar-2022 Instruction Type:Patient Education Patient Instructions Indication:Nonsmoker Start:07-Mar-2022 Instruction Type:Provider Instructions for Treatment How to Access Health Informa tion Online using Patient Portal and 3rd [employer] Apps Indication:Nonsmoker Start:07-Mar-2022 Instruction Type:Patient Education Patient Instructions Indication:Morbid obesity Start:18-Feb-2022 Instruction Type:Provider Instructions for Treatment How to Access Health Informa tion Online using Patient Portal and 3rd [employer] Apps Indication:Morbid obesity Start:18-Feb-2022 Instruction Type:Patient Education Patient Instructions Indication:Morbid obesity Start:31-Dec-2021 Instruction Type:Provider Instructions for Treatment How to Access Health Informa tion Online using Patient Portal and 3rd [employer] Apps Indication:Morbid obesity Start:31-Dec-2021 Instruction Type:Patient Education Patient Instructions Indication:BMI 40.0-44.9, adult Start:17-Oct-2021 Instruction Type:Provider Instructions for Treatment How to Access Health Informa tion Online using Patient Portal and 3rd [employer] Apps Indication:BMI 40.0-44.9, adult Start:17-Oct-2021 Instruction Type:Patient Education Patient Instructions Indication:BMI 40.0-44.9, adult Start:10-Oct-2021 Instruction Type:Provider Instructions for Treatment How to Access Health Informa tion Online using Patient Portal and 3rd [employer] Apps Indication:BMI 40.0-44.9, adult Start:10-Oct-2021 Instruction Type:Patient Education Patient Instructions Indication:Cellulitis Start:03-Oct-2021 Instruction Type:Provider Instructions for Treatment Patient Instructions Indication:BMI 40.0-44.9, adult Start:26-Sep-2021 Instruction Type:Provider Instructions for Treatment How to Access Health Informa tion Online using Patient Portal and 3rd [employer] Apps Indication:BMI 40.0-44.9, adult Start:26-Sep-2021 Instruction Type:Patient Education Patient Instructions Indication:Nonsmoker Start:10-Aug-2021 Instruction Type:Provider Instructions for Treatment How to Access Health Informa tion Online using Patient Portal and 3rd [employer] Apps Indication:Hypertension Start:10-Aug-2021 Instruction Type:Patient Education Patient Instructions Indication:BMI 40.0-44.9, adult Start:09-Aug-2021 Instruction Type:Provider Instructions for Treatment How to Access Health Informa tion Online using Patient Portal and 3rd [employer] Apps Indication:BMI 40.0-44.9, adult Start:09-Aug-2021 Instruction Type:Patient Education Patient Instructions Indication:Nonsmoker Start:28-May-2021 Instruction Type:Provider Instructions for Treatment How to Access Health Informa tion Online using Patient Portal and 3[employer] Apps Indication:Nonsmoker Start:28-May-2021 Instruction Type:Patient Education Patient Instructions Indication:BMI 40.0-44.9, adult Start:04-Apr-2021 Instruction Type:Provider Instructions for Treatment How to Access Health Informa tion Online using Patient Portal and 3rd [employer] Apps Indication:BMI 40.0-44.9, adult Start:04-Apr-2021 Instruction Type:Patient Education Patient Instructions Indication:BMI 40.0-44.9, adult Start:20-Mar-2021 Instruction Type:Provider Instructions for Treatment How to Access Health Informa tion Online using Patient Portal and [employer] Apps Indication:BMI 40.0-44.9, adult Start:20-Mar-2021 Instruction Type:Patient Education Patient Instructions Indication:Type 2 diabetes mellitus Start:13-Dec-2020 Instruction Type:Provider Instructions for Treatment How to Access Health Informa tion Online using Patient Portal and [employer] Apps Indication:Type 2 diabetes mellitus Start:13-Dec-2020 Instruction Type:Patient Education Patient Instructions Indication:Type 2 diabetes mellitus Start:15-Sep-2020 Instruction Type:Provider Instructions for Treatment How to Access Health Informa tion Online using Patient Portal and [employer] Apps Indication:Type 2 diabetes mellitus Start:15-Sep-2020 Instruction Type:Patient Education [facility]; [facility] Work Phone: Instructions* Name Dates Details Patient Instructions Indication:Nonsmoker Start:10-Jun-2022 Instruction Type:Provider Instructions for Treatment How to Access Health Informa tion Online using Patient Portal and [employer]rd [employer] Apps Indication:Nonsmoker Start:10-Jun-2022 Instruction Type:Patient Education Patient Instructions Indication:Nonsmoker Start:10-May-2022 Instruction Type:Provider Instructions for Treatment How to Access Health Informa tion Online using Patient Portal and [employer] Indication:Nonsmoker Start:10-May-2022 Instruction Type:Patient Education Patient Instructions Indication:Nonsmoker Start:14-Mar-2022 Instruction Type:Provider Instructions for Treatment How to Access Health Informa tion Online using Patient Portal and [employer] Apps Indication:Nonsmoker Start:14-Mar-2022 Instruction Type:Patient Education Patient Instructions Indication:Nonsmoker Start:07-Mar-2022 Instruction Type:Provider Instructions for Treatment How to Access Health Informa tion Online using Patient Portal and [employer] Apps Indication:Nonsmoker Start:07-Mar-2022 Instruction Type:Patient Education Patient Instructions Indication:Morbid obesity Start:18-Feb-2022 Instruction Type:Provider Instructions for Treatment How to Access Health Informa tion Online using Patient Portal and [employer] Apps Indication:Morbid obesity Start:18-Feb-2022 Instruction Type:Patient Education Patient Instructions Indication:Morbid obesity Start:31-Dec-2021 Instruction Type:Provider Instructions for Treatment How to Access Health Informa tion Online using Patient Portal and [employer] Apps Indication:Morbid obesity Start:31-Dec-2021 Instruction Type:Patient Education Patient Instructions Indication:BMI 40.0-44.9, adult Start:17-Oct-2021 Instruction Type:Provider Instructions for Treatment How to Access Health Informa tion Online using Patient Portal and [employer] Apps Indication:BMI 40.0-44.9, adult Start:17-Oct-2021 Instruction Type:Patient Education Patient Instructions Indication:BMI 40.0-44.9, adult Start:10-Oct-2021 Instruction Type:Provider Instructions for Treatment How to Access Health Informa tion Online using Patient Portal and [employer] Apps Indication:BMI 40.0-44.9, adult Start:10-Oct-2021 Instruction Type:Patient Education Patient Instructions Indication:Cellulitis Start:03-Oct-2021 Instruction Type:Provider Instructions for Treatment Patient Instructions Indication:BMI 40.0-44.9, adult Start:26-Sep-2021 Instruction Type:Provider Instructions for Treatment How to Access Health Informa tion Online using Patient Portal and [employer] Apps Indication:BMI 40.0-44.9, adult Start:26-Sep-2021 Instruction Type:Patient Education Patient Instructions Indication:Nonsmoker Start:10-Aug-2021 Instruction Type:Provider Instructions for Treatment How to Access Health Informa tion Online using Patient Portal and [employer] Apps Indication:Hypertension Start:10-Aug-2021 Instruction Type:Patient Education Patient Instructions Indication:BMI 40.0-44.9, adult Start:09-Aug-2021 Instruction Type:Provider Instructions for Treatment How to Access Health Informa tion Online using Patient Portal and [employer] Apps Indication:BMI 40.0-44.9, adult Start:09-Aug-2021 Instruction Type:Patient Education Patient Instructions Indication:Nonsmoker Start:28-May-2021 Instruction Type:Provider Instructions for Treatment How to Access Health Informa tion Online using Patient Portal and [employer] Apps Indication:Nonsmoker Start:28-May-2021 Instruction Type:Patient Education Patient Instructions Indication:BMI 40.0-44.9, adult Start:04-Apr-2021 Instruction Type:Provider Instructions for Treatment How to Access Health Informa tion Online using Patient Portal and [employer] Apps Indication:BMI 40.0-44.9, adult Start:04-Apr-2021 Instruction Type:Patient Education Patient Instructions Indication:BMI 40.0-44.9, adult Start:20-Mar-2021 Instruction Type:Provider Instructions for Treatment How to Access Health Informa tion Online using Patient Portal and [employer] Apps Indication:BMI 40.0-44.9, adult Start:20-Mar-2021 Instruction Type:Patient Education Patient Instructions Indication:Type 2 diabetes mellitus Start:13-Dec-2020 Instruction Type:Provider Instructions for Treatment How to Access Health Informa tion Online using Patient Portal and [employer] Apps Indication:Type 2 diabetes mellitus Start:13-Dec-2020 Instruction Type:Patient Education Patient Instructions Indication:Type 2 diabetes mellitus Start:15-Sep-2020 Instruction Type:Provider Instructions for Treatment How to Access Health Informa tion Online using Patient Portal and [employer] Apps Indication:Type 2 diabetes mellitus Start:15-Sep-2020 Instruction Type:Patient Education [facility]; [facility] Work Phone: Instructions* Name Dates Details Patient Instructions Indication:Nonsmoker Start:10-Jun-2022 Instruction Type:Provider Instructions for Treatment How to Access Health Informa tion Online using Patient Portal and [employer] Apps Indication:Nonsmoker Start:10-Jun-2022 Instruction Type:Patient Education Patient Instructions Indication:Nonsmoker Start:10-May-2022 Instruction Type:Provider Instructions for Treatment How to Access Health Informa tion Online using Patient Portal and [employer] Apps Indication:Nonsmoker Start:10-May-2022 Instruction Type:Patient Education Patient Instructions Indication:Nonsmoker Start:14-Mar-2022 Instruction Type:Provider Instructions for Treatment How to Access Health Informa tion Online using Patient Portal and [employer] Apps Indication:Nonsmoker Start:14-Mar-2022 Instruction Type:Patient Education Patient Instructions Indication:Nonsmoker Start:07-Mar-2022 Instruction Type:Provider Instructions for Treatment How to Access Health Informa tion Online using Patient Portal and [employer] Apps Indication:Nonsmoker Start:07-Mar-2022 Instruction Type:Patient Education Patient Instructions Indication:Morbid obesity Start:18-Feb-2022 Instruction Type:Provider Instructions for Treatment How to Access Health Informa tion Online using Patient Portal and [employer] Apps Indication:Morbid obesity Start:18-Feb-2022 Instruction Type:Patient Education Patient Instructions Indication:Morbid obesity Start:31-Dec-2021 Instruction Type:Provider Instructions for Treatment How to Access Health Informa tion Online using Patient Portal and [employer] Apps Indication:Morbid obesity Start:31-Dec-2021 Instruction Type:Patient Education Patient Instructions Indication:BMI 40.0-44.9, adult Start:17-Oct-2021 Instruction Type:Provider Instructions for Treatment How to Access Health Informa tion Online using Patient Portal and [employer] Apps Indication:BMI 40.0-44.9, adult Start:17-Oct-2021 Instruction Type:Patient Education Patient Instructions Indication:BMI 40.0-44.9, adult Start:10-Oct-2021 Instruction Type:Provider Instructions for Treatment How to Access Health Informa tion Online using Patient Portal and [employer] Apps Indication:BMI 40.0-44.9, adult Start:10-Oct-2021 Instruction Type:Patient Education Patient Instructions Indication:Cellulitis Start:03-Oct-2021 Instruction Type:Provider Instructions for Treatment Patient Instructions Indication:BMI 40.0-44.9, adult Start:26-Sep-2021 Instruction Type:Provider Instructions for Treatment How to Access Health Informa tion Online using Patient Portal and [employer] Apps Indication:BMI 40.0-44.9, adult Start:26-Sep-2021 Instruction Type:Patient Education Patient Instructions Indication:Nonsmoker Start:10-Aug-2021 Instruction Type:Provider Instructions for Treatment How to Access Health Informa tion Online using Patient Portal and [employer] Apps Indication:Hypertension Start:10-Aug-2021 Instruction Type:Patient Education Patient Instructions Indication:BMI 40.0-44.9, adult Start:09-Aug-2021 Instruction Type:Provider Instructions for Treatment How to Access Health Informa tion Online using Patient Portal and [employer] Apps Indication:BMI 40.0-44.9, adult Start:09-Aug-2021 Instruction Type:Patient Education Patient Instructions Indication:Nonsmoker Start:28-May-2021 Instruction Type:Provider Instructions for Treatment How to Access Health Informa tion Online using Patient Portal and [employer] Apps Indication:Nonsmoker Start:28-May-2021 Instruction Type:Patient Education Patient Instructions Indication:BMI 40.0-44.9, adult Start:04-Apr-2021 Instruction Type:Provider Instructions for Treatment How to Access Health Informa tion Online using Patient Portal and [employer] Apps Indication:BMI 40.0-44.9, adult Start:04-Apr-2021 Instruction Type:Patient Education Patient Instructions Indication:BMI 40.0-44.9, adult Start:20-Mar-2021 Instruction Type:Provider Instructions for Treatment How to Access Health Informa tion Online using Patient Portal and [employer] Apps Indication:BMI 40.0-44.9, adult Start:20-Mar-2021 Instruction Type:Patient Education Patient Instructions Indication:Type 2 diabetes mellitus Start:13-Dec-2020 Instruction Type:Provider Instructions for Treatment How to Access Health Informa tion Online using Patient Portal and [employer] Apps Indication:Type 2 diabetes mellitus Start:13-Dec-2020 Instruction Type:Patient Education Patient Instructions Indication:Type 2 diabetes mellitus Start:15-Sep-2020 Instruction Type:Provider Instructions for Treatment How to Access Health Informa tion Online using Patient Portal and [employer] Apps Indication:Type 2 diabetes mellitus Start:15-Sep-2020 Instruction Type:Patient Education [facility]; [facility] Work Phone: Instructions* Name Dates Details Patient Instructions Indication:Nonsmoker Start:10-Jun-2022 Instruction Type:Provider Instructions for Treatment How to Access Health Informa tion Online using Patient Portal and [employer] Apps Indication:Nonsmoker Start:10-Jun-2022 Instruction Type:Patient Education Patient Instructions Indication:Nonsmoker Start:10-May-2022 Instruction Type:Provider Instructions for Treatment How to Access Health Informa tion Online using Patient Portal and [employer] Apps Indication:Nonsmoker Start:10-May-2022 Instruction Type:Patient Education Patient Instructions Indication:Nonsmoker Start:14-Mar-2022 Instruction Type:Provider Instructions for Treatment How to Access Health Informa tion Online using Patient Portal and [employer] Apps Indication:Nonsmoker Start:14-Mar-2022 Instruction Type:Patient Education Patient Instructions Indication:Nonsmoker Start:07-Mar-2022 Instruction Type:Provider Instructions for Treatment How to Access Health Informa tion Online using Patient Portal and [employer] Apps Indication:Nonsmoker Start:07-Mar-2022 Instruction Type:Patient Education Patient Instructions Indication:Morbid obesity Start:18-Feb-2022 Instruction Type:Provider Instructions for Treatment How to Access Health Informa tion Online using Patient Portal and [employer] Apps Indication:Morbid obesity Start:18-Feb-2022 Instruction Type:Patient Education Patient Instructions Indication:Morbid obesity Start:31-Dec-2021 Instruction Type:Provider Instructions for Treatment How to Access Health Informa tion Online using Patient Portal and [employer] Apps Indication:Morbid obesity Start:31-Dec-2021 Instruction Type:Patient Education Patient Instructions Indication:BMI 40.0-44.9, adult Start:17-Oct-2021 Instruction Type:Provider Instructions for Treatment How to Access Health Informa tion Online using Patient Portal and [employer] Apps Indication:BMI 40.0-44.9, adult Start:17-Oct-2021 Instruction Type:Patient Education Patient Instructions Indication:BMI 40.0-44.9, adult Start:10-Oct-2021 Instruction Type:Provider Instructions for Treatment How to Access Health Informa tion Online using Patient Portal and [employer] Apps Indication:BMI 40.0-44.9, adult Start:10-Oct-2021 Instruction Type:Patient Education Patient Instructions Indication:Cellulitis Start:03-Oct-2021 Instruction Type:Provider Instructions for Treatment Patient Instructions Indication:BMI 40.0-44.9, adult Start:26-Sep-2021 Instruction Type:Provider Instructions for Treatment How to Access Health Informa tion Online using Patient Portal and [employer] Apps Indication:BMI 40.0-44.9, adult Start:26-Sep-2021 Instruction Type:Patient Education Patient Instructions Indication:Nonsmoker Start:10-Aug-2021 Instruction Type:Provider Instructions for Treatment How to Access Health Informa tion Online using Patient Portal and [employer] Apps Indication:Hypertension Start:10-Aug-2021 Instruction Type:Patient Education Patient Instructions Indication:BMI 40.0-44.9, adult Start:09-Aug-2021 Instruction Type:Provider Instructions for Treatment How to Access Health Informa tion Online using Patient Portal and [employer] Apps Indication:BMI 40.0-44.9, adult Start:09-Aug-2021 Instruction Type:Patient Education Patient Instructions Indication:Nonsmoker Start:28-May-2021 Instruction Type:Provider Instructions for Treatment How to Access Health Informa tion Online using Patient Portal and [employer] Apps Indication:Nonsmoker Start:28-May-2021 Instruction Type:Patient Education Patient Instructions Indication:BMI 40.0-44.9, adult Start:04-Apr-2021 Instruction Type:Provider Instructions for Treatment How to Access Health Informa tion Online using Patient Portal and [employer] Apps Indication:BMI 40.0-44.9, adult Start:04-Apr-2021 Instruction Type:Patient Education Patient Instructions Indication:BMI 40.0-44.9, adult Start:20-Mar-2021 Instruction Type:Provider Instructions for Treatment How to Access Health Informa tion Online using Patient Portal and [employer] Apps Indication:BMI 40.0-44.9, adult Start:20-Mar-2021 Instruction Type:Patient Education Patient Instructions Indication:Type 2 diabetes mellitus Start:13-Dec-2020 Instruction Type:Provider Instructions for Treatment How to Access Health Informa tion Online using Patient Portal and [employer] Apps Indication:Type 2 diabetes mellitus Start:13-Dec-2020 Instruction Type:Patient Education Patient Instructions Indication:Type 2 diabetes mellitus Start:15-Sep-2020 Instruction Type:Provider Instructions for Treatment How to Access Health Informa tion Online using Patient Portal and [employer] Apps Indication:Type 2 diabetes mellitus Start:15-Sep-2020 Instruction Type:Patient Education [facility]; [facility] Work Phone: Instructions* Name Dates Details Patient Instructions Indication:Nonsmoker Start:10-Jun-2022 Instruction Type:Provider Instructions for Treatment How to Access Health Informa tion Online using Patient Portal and [employer] Apps Indication:Nonsmoker Start:10-Jun-2022 Instruction Type:Patient Education Patient Instructions Indication:Nonsmoker Start:10-May-2022 Instruction Type:Provider Instructions for Treatment How to Access Health Informa tion Online using Patient Portal and [employer] Apps Indication:Nonsmoker Start:10-May-2022 Instruction Type:Patient Education Patient Instructions Indication:Nonsmoker Start:14-Mar-2022 Instruction Type:Provider Instructions for Treatment How to Access Health Informa tion Online using Patient Portal and [employer] Apps Indication:Nonsmoker Start:14-Mar-2022 Instruction Type:Patient Education Patient Instructions Indication:Nonsmoker Start:07-Mar-2022 Instruction Type:Provider Instructions for Treatment How to Access Health Informa tion Online using Patient Portal and [employer] Apps Indication:Nonsmoker Start:07-Mar-2022 Instruction Type:Patient Education Patient Instructions Indication:Morbid obesity Start:18-Feb-2022 Instruction Type:Provider Instructions for Treatment How to Access Health Informa tion Online using Patient Portal and [employer] Apps Indication:Morbid obesity Start:18-Feb-2022 Instruction Type:Patient Education Patient Instructions Indication:Morbid obesity Start:31-Dec-2021 Instruction Type:Provider Instructions for Treatment How to Access Health Informa tion Online using Patient Portal and [employer] Apps Indication:Morbid obesity Start:31-Dec-2021 Instruction Type:Patient Education Patient Instructions Indication:BMI 40.0-44.9, adult Start:17-Oct-2021 Instruction Type:Provider Instructions for Treatment How to Access Health Informa tion Online using Patient Portal and [employer] Apps Indication:BMI 40.0-44.9, adult Start:17-Oct-2021 Instruction Type:Patient Education Patient Instructions Indication:BMI 40.0-44.9, adult Start:10-Oct-2021 Instruction Type:Provider Instructions for Treatment How to Access Health Informa tion Online using Patient Portal and [employer] Apps Indication:BMI 40.0-44.9, adult Start:10-Oct-2021 Instruction Type:Patient Education Patient Instructions Indication:Cellulitis Start:03-Oct-2021 Instruction Type:Provider Instructions for Treatment Patient Instructions Indication:BMI 40.0-44.9, adult Start:26-Sep-2021 Instruction Type:Provider Instructions for Treatment How to Access Health Informa tion Online using Patient Portal and [employer] Apps Indication:BMI 40.0-44.9, adult Start:26-Sep-2021 Instruction Type:Patient Education Patient Instructions Indication:Nonsmoker Start:10-Aug-2021 Instruction Type:Provider Instructions for Treatment How to Access Health Informa tion Online using Patient Portal and [employer] Apps Indication:Hypertension Start:10-Aug-2021 Instruction Type:Patient Education Patient Instructions Indication:BMI 40.0-44.9, adult Start:09-Aug-2021 Instruction Type:Provider Instructions for Treatment How to Access Health Informa tion Online using Patient Portal and [employer] Apps Indication:BMI 40.0-44.9, adult Start:09-Aug-2021 Instruction Type:Patient Education Patient Instructions Indication:Nonsmoker Start:28-May-2021 Instruction Type:Provider Instructions for Treatment How to Access Health Informa tion Online using Patient Portal and [employer] Apps Indication:Nonsmoker Start:28-May-2021 Instruction Type:Patient Education Patient Instructions Indication:BMI 40.0-44.9, adult Start:04-Apr-2021 Instruction Type:Provider Instructions for Treatment How to Access Health Informa tion Online using Patient Portal and [employer] Apps Indication:BMI 40.0-44.9, adult Start:04-Apr-2021 Instruction Type:Patient Education Patient Instructions Indication:BMI 40.0-44.9, adult Start:20-Mar-2021 Instruction Type:Provider Instructions for Treatment How to Access Health Informa tion Online using Patient Portal and 3rd [employer] Apps Indication:BMI 40.0-44.9, adult Start:20-Mar-2021 Instruction Type:Patient Education Patient Instructions Indication:Type 2 diabetes mellitus Start:13-Dec-2020 Instruction Type:Provider Instructions for Treatment How to Access Health Informa tion Online using Patient Portal and [employer] Apps Indication:Type 2 diabetes mellitus Start:13-Dec-2020 Instruction Type:Patient Education Patient Instructions Indication:Type 2 diabetes mellitus Start:15-Sep-2020 Instruction Type:Provider Instructions for Treatment How to Access Health Informa tion Online using Patient Portal and [employer] Apps Indication:Type 2 diabetes mellitus Start:15-Sep-2020 Instruction Type:Patient Education [facility]; [facility] Work Phone: Instructions* Name Dates Details Patient Instructions Indication:Nonsmoker Start:10-Jun-2022 Instruction Type:Provider Instructions for Treatment How to Access Health Informa tion Online using Patient Portal and [employer]rd [employer] Apps Indication:Nonsmoker Start:10-Jun-2022 Instruction Type:Patient Education Patient Instructions Indication:Nonsmoker Start:10-May-2022 Instruction Type:Provider Instructions for Treatment How to Access Health Informa tion Online using Patient Portal and [employer] Apps Indication:Nonsmoker Start:10-May-2022 Instruction Type:Patient Education Patient Instructions Indication:Nonsmoker Start:14-Mar-2022 Instruction Type:Provider Instructions for Treatment How to Access Health Informa tion Online using Patient Portal and [employer] Apps Indication:Nonsmoker Start:14-Mar-2022 Instruction Type:Patient Education Patient Instructions Indication:Nonsmoker Start:07-Mar-2022 Instruction Type:Provider Instructions for Treatment How to Access Health Informa tion Online using Patient Portal and [employer] Apps Indication:Nonsmoker Start:07-Mar-2022 Instruction Type:Patient Education Patient Instructions Indication:Morbid obesity Start:18-Feb-2022 Instruction Type:Provider Instructions for Treatment How to Access Health Informa tion Online using Patient Portal and [employer] Apps Indication:Morbid obesity Start:18-Feb-2022 Instruction Type:Patient Education Patient Instructions Indication:Morbid obesity Start:31-Dec-2021 Instruction Type:Provider Instructions for Treatment How to Access Health Informa tion Online using Patient Portal and [employer] Apps Indication:Morbid obesity Start:31-Dec-2021 Instruction Type:Patient Education Patient Instructions Indication:BMI 40.0-44.9, adult Start:17-Oct-2021 Instruction Type:Provider Instructions for Treatment How to Access Health Informa tion Online using Patient Portal and [employer] Apps Indication:BMI 40.0-44.9, adult Start:17-Oct-2021 Instruction Type:Patient Education Patient Instructions Indication:BMI 40.0-44.9, adult Start:10-Oct-2021 Instruction Type:Provider Instructions for Treatment How to Access Health Informa tion Online using Patient Portal and [employer] Apps Indication:BMI 40.0-44.9, adult Start:10-Oct-2021 Instruction Type:Patient Education Patient Instructions Indication:Cellulitis Start:03-Oct-2021 Instruction Type:Provider Instructions for Treatment Patient Instructions Indication:BMI 40.0-44.9, adult Start:26-Sep-2021 Instruction Type:Provider Instructions for Treatment How to Access Health Informa tion Online using Patient Portal and [employer] Apps Indication:BMI 40.0-44.9, adult Start:26-Sep-2021 Instruction Type:Patient Education Patient Instructions Indication:Nonsmoker Start:10-Aug-2021 Instruction Type:Provider Instructions for Treatment How to Access Health Informa tion Online using Patient Portal and [employer] Apps Indication:Hypertension Start:10-Aug-2021 Instruction Type:Patient Education Patient Instructions Indication:BMI 40.0-44.9, adult Start:09-Aug-2021 Instruction Type:Provider Instructions for Treatment How to Access Health Informa tion Online using Patient Portal and [employer] Apps Indication:BMI 40.0-44.9, adult Start:09-Aug-2021 Instruction Type:Patient Education Patient Instructions Indication:Nonsmoker Start:28-May-2021 Instruction Type:Provider Instructions for Treatment How to Access Health Informa tion Online using Patient Portal and [employer] Apps Indication:Nonsmoker Start:28-May-2021 Instruction Type:Patient Education Patient Instructions Indication:BMI 40.0-44.9, adult Start:04-Apr-2021 Instruction Type:Provider Instructions for Treatment How to Access Health Informa tion Online using Patient Portal and [employer] Apps Indication:BMI 40.0-44.9, adult Start:04-Apr-2021 Instruction Type:Patient Education Patient Instructions Indication:BMI 40.0-44.9, adult Start:20-Mar-2021 Instruction Type:Provider Instructions for Treatment How to Access Health Informa tion Online using Patient Portal and [employer] Apps Indication:BMI 40.0-44.9, adult Start:20-Mar-2021 Instruction Type:Patient Education Patient Instructions Indication:Type 2 diabetes mellitus Start:13-Dec-2020 Instruction Type:Provider Instructions for Treatment How to Access Health Informa tion Online using Patient Portal and [employer] Apps Indication:Type 2 diabetes mellitus Start:13-Dec-2020 Instruction Type:Patient Education Patient Instructions Indication:Type 2 diabetes mellitus Start:15-Sep-2020 Instruction Type:Provider Instructions for Treatment How to Access Health Informa tion Online using Patient Portal and [employer] Apps Indication:Type 2 diabetes mellitus Start:15-Sep-2020 Instruction Type:Patient Education [facility]; [facility] Work Phone: Instructions* Name Dates Details Patient Instructions Indication:Nonsmoker Start:10-Jun-2022 Instruction Type:Provider Instructions for Treatment How to Access Health Informa tion Online using Patient Portal and [employer] Apps Indication:Nonsmoker Start:10-Jun-2022 Instruction Type:Patient Education Patient Instructions Indication:Nonsmoker Start:10-May-2022 Instruction Type:Provider Instructions for Treatment How to Access Health Informa tion Online using Patient Portal and [employer] Apps Indication:Nonsmoker Start:10-May-2022 Instruction Type:Patient Education Patient Instructions Indication:Nonsmoker Start:14-Mar-2022 Instruction Type:Provider Instructions for Treatment How to Access Health Informa tion Online using Patient Portal and [employer] Apps Indication:Nonsmoker Start:14-Mar-2022 Instruction Type:Patient Education Patient Instructions Indication:Nonsmoker Start:07-Mar-2022 Instruction Type:Provider Instructions for Treatment How to Access Health Informa tion Online using Patient Portal and [employer] Apps Indication:Nonsmoker Start:07-Mar-2022 Instruction Type:Patient Education Patient Instructions Indication:Morbid obesity Start:18-Feb-2022 Instruction Type:Provider Instructions for Treatment How to Access Health Informa tion Online using Patient Portal and [employer] Apps Indication:Morbid obesity Start:18-Feb-2022 Instruction Type:Patient Education Patient Instructions Indication:Morbid obesity Start:31-Dec-2021 Instruction Type:Provider Instructions for Treatment How to Access Health Informa tion Online using Patient Portal and [employer] Apps Indication:Morbid obesity Start:31-Dec-2021 Instruction Type:Patient Education Patient Instructions Indication:BMI 40.0-44.9, adult Start:17-Oct-2021 Instruction Type:Provider Instructions for Treatment How to Access Health Informa tion Online using Patient Portal and [employer] Apps Indication:BMI 40.0-44.9, adult Start:17-Oct-2021 Instruction Type:Patient Education Patient Instructions Indication:BMI 40.0-44.9, adult Start:10-Oct-2021 Instruction Type:Provider Instructions for Treatment How to Access Health Informa tion Online using Patient Portal and [employer] Apps Indication:BMI 40.0-44.9, adult Start:10-Oct-2021 Instruction Type:Patient Education Patient Instructions Indication:Cellulitis Start:03-Oct-2021 Instruction Type:Provider Instructions for Treatment Patient Instructions Indication:BMI 40.0-44.9, adult Start:26-Sep-2021 Instruction Type:Provider Instructions for Treatment How to Access Health Informa tion Online using Patient Portal and [employer] Apps Indication:BMI 40.0-44.9, adult Start:26-Sep-2021 Instruction Type:Patient Education Patient Instructions Indication:Nonsmoker Start:10-Aug-2021 Instruction Type:Provider Instructions for Treatment How to Access Health Informa tion Online using Patient Portal and [employer] Apps Indication:Hypertension Start:10-Aug-2021 Instruction Type:Patient Education Patient Instructions Indication:BMI 40.0-44.9, adult Start:09-Aug-2021 Instruction Type:Provider Instructions for Treatment How to Access Health Informa tion Online using Patient Portal and [employer] Apps Indication:BMI 40.0-44.9, adult Start:09-Aug-2021 Instruction Type:Patient Education Patient Instructions Indication:Nonsmoker Start:28-May-2021 Instruction Type:Provider Instructions for Treatment How to Access Health Informa tion Online using Patient Portal and [employer] Apps Indication:Nonsmoker Start:28-May-2021 Instruction Type:Patient Education Patient Instructions Indication:BMI 40.0-44.9, adult Start:04-Apr-2021 Instruction Type:Provider Instructions for Treatment How to Access Health Informa tion Online using Patient Portal and [employer] Apps Indication:BMI 40.0-44.9, adult Start:04-Apr-2021 Instruction Type:Patient Education Patient Instructions Indication:BMI 40.0-44.9, adult Start:20-Mar-2021 Instruction Type:Provider Instructions for Treatment How to Access Health Informa tion Online using Patient Portal and [employer] Apps Indication:BMI 40.0-44.9, adult Start:20-Mar-2021 Instruction Type:Patient Education Patient Instructions Indication:Type 2 diabetes mellitus Start:13-Dec-2020 Instruction Type:Provider Instructions for Treatment How to Access Health Informa tion Online using Patient Portal and [employer] Apps Indication:Type 2 diabetes mellitus Start:13-Dec-2020 Instruction Type:Patient Education Patient Instructions Indication:Type 2 diabetes mellitus Start:15-Sep-2020 Instruction Type:Provider Instructions for Treatment How to Access Health Informa tion Online using Patient Portal and [employer] Apps Indication:Type 2 diabetes mellitus Start:15-Sep-2020 Instruction Type:Patient Education [facility]; [facility] Work Phone: Instructions* Name Dates Details Patient Instructions Indication:BMI 45.0-49.9, adult Start:10-Jul-2022 Instruction Type:Provider Instructions for Treatment How to Access Health Informa tion Online using Patient Portal and [employer] Apps Indication:BMI 45.0-49.9, adult Start:10-Jul-2022 Instruction Type:Patient Education Patient Instructions Indication:Nonsmoker Start:10-Jun-2022 Instruction Type:Provider Instructions for Treatment How to Access Health Informa tion Online using Patient Portal and [employer] Apps Indication:Nonsmoker Start:10-Jun-2022 Instruction Type:Patient Education Patient Instructions Indication:Nonsmoker Start:10-May-2022 Instruction Type:Provider Instructions for Treatment How to Access Health Informa tion Online using Patient Portal and [employer] Apps Indication:Nonsmoker Start:10-May-2022 Instruction Type:Patient Education Patient Instructions Indication:Nonsmoker Start:14-Mar-2022 Instruction Type:Provider Instructions for Treatment How to Access Health Informa tion Online using Patient Portal and [employer] Apps Indication:Nonsmoker Start:14-Mar-2022 Instruction Type:Patient Education Patient Instructions Indication:Nonsmoker Start:07-Mar-2022 Instruction Type:Provider Instructions for Treatment How to Access Health Informa tion Online using Patient Portal and [employer] Apps Indication:Nonsmoker Start:07-Mar-2022 Instruction Type:Patient Education Patient Instructions Indication:Morbid obesity Start:18-Feb-2022 Instruction Type:Provider Instructions for Treatment How to Access Health Informa tion Online using Patient Portal and [employer] Apps Indication:Morbid obesity Start:18-Feb-2022 Instruction Type:Patient Education Patient Instructions Indication:Morbid obesity Start:31-Dec-2021 Instruction Type:Provider Instructions for Treatment How to Access Health Informa tion Online using Patient Portal and [employer] Apps Indication:Morbid obesity Start:31-Dec-2021 Instruction Type:Patient Education Patient Instructions Indication:BMI 40.0-44.9, adult Start:17-Oct-2021 Instruction Type:Provider Instructions for Treatment How to Access Health Informa tion Online using Patient Portal and [employer] Apps Indication:BMI 40.0-44.9, adult Start:17-Oct-2021 Instruction Type:Patient Education Patient Instructions Indication:BMI 40.0-44.9, adult Start:10-Oct-2021 Instruction Type:Provider Instructions for Treatment How to Access Health Informa tion Online using Patient Portal and [employer] Apps Indication:BMI 40.0-44.9, adult Start:10-Oct-2021 Instruction Type:Patient Education Patient Instructions Indication:Cellulitis Start:03-Oct-2021 Instruction Type:Provider Instructions for Treatment Patient Instructions Indication:BMI 40.0-44.9, adult Start:26-Sep-2021 Instruction Type:Provider Instructions for Treatment How to Access Health Informa tion Online using Patient Portal and [employer] Apps Indication:BMI 40.0-44.9, adult Start:26-Sep-2021 Instruction Type:Patient Education Patient Instructions Indication:Nonsmoker Start:10-Aug-2021 Instruction Type:Provider Instructions for Treatment How to Access Health Informa tion Online using Patient Portal and [employer] Apps Indication:Hypertension Start:10-Aug-2021 Instruction Type:Patient Education Patient Instructions Indication:BMI 40.0-44.9, adult Start:09-Aug-2021 Instruction Type:Provider Instructions for Treatment How to Access Health Informa tion Online using Patient Portal and [employer] Apps Indication:BMI 40.0-44.9, adult Start:09-Aug-2021 Instruction Type:Patient Education Patient Instructions Indication:Nonsmoker Start:28-May-2021 Instruction Type:Provider Instructions for Treatment How to Access Health Informa tion Online using Patient Portal and [employer] Apps Indication:Nonsmoker Start:28-May-2021 Instruction Type:Patient Education Patient Instructions Indication:BMI 40.0-44.9, adult Start:04-Apr-2021 Instruction Type:Provider Instructions for Treatment How to Access Health Informa tion Online using Patient Portal and [employer] Apps Indication:BMI 40.0-44.9, adult Start:04-Apr-2021 Instruction Type:Patient Education Patient Instructions Indication:BMI 40.0-44.9, adult Start:20-Mar-2021 Instruction Type:Provider Instructions for Treatment How to Access Health Informa tion Online using Patient Portal and [employer] Apps Indication:BMI 40.0-44.9, adult Start:20-Mar-2021 Instruction Type:Patient Education Patient Instructions Indication:Type 2 diabetes mellitus Start:13-Dec-2020 Instruction Type:Provider Instructions for Treatment How to Access Health Informa tion Online using Patient Portal and [employer] Apps Indication:Type 2 diabetes mellitus Start:13-Dec-2020 Instruction Type:Patient Education Patient Instructions Indication:Type 2 diabetes mellitus Start:15-Sep-2020 Instruction Type:Provider Instructions for Treatment How to Access Health Informa tion Online using Patient Portal and [employer] Apps Indication:Type 2 diabetes mellitus Start:15-Sep-2020 Instruction Type:Patient Education [facility]; [facility] Work Phone: Instructions* Name Dates Details Patient Instructions Indication:BMI 40.0-44.9, adult Start:25-Jul-2022 Instruction Type:Provider Instructions for Treatment How to Access Health Informa tion Online using Patient Portal and [employer] Apps Indication:BMI 40.0-44.9, adult Start:25-Jul-2022 Instruction Type:Patient Education Patient Instructions Indication:BMI 45.0-49.9, adult Start:10-Jul-2022 Instruction Type:Provider Instructions for Treatment How to Access Health Informa tion Online using Patient Portal and [employer] Apps Indication:BMI 45.0-49.9, adult Start:10-Jul-2022 Instruction Type:Patient Education Patient Instructions Indication:Nonsmoker Start:10-Jun-2022 Instruction Type:Provider Instructions for Treatment How to Access Health Informa tion Online using Patient Portal and [employer] Apps Indication:Nonsmoker Start:10-Jun-2022 Instruction Type:Patient Education Patient Instructions Indication:Nonsmoker Start:10-May-2022 Instruction Type:Provider Instructions for Treatment How to Access Health Informa tion Online using Patient Portal and [employer] Apps Indication:Nonsmoker Start:10-May-2022 Instruction Type:Patient Education Patient Instructions Indication:Nonsmoker Start:14-Mar-2022 Instruction Type:Provider Instructions for Treatment How to Access Health Informa tion Online using Patient Portal and [employer] Apps Indication:Nonsmoker Start:14-Mar-2022 Instruction Type:Patient Education Patient Instructions Indication:Nonsmoker Start:07-Mar-2022 Instruction Type:Provider Instructions for Treatment How to Access Health Informa tion Online using Patient Portal and [employer] Apps Indication:Nonsmoker Start:07-Mar-2022 Instruction Type:Patient Education Patient Instructions Indication:Morbid obesity Start:18-Feb-2022 Instruction Type:Provider Instructions for Treatment How to Access Health Informa tion Online using Patient Portal and [employer] Apps Indication:Morbid obesity Start:18-Feb-2022 Instruction Type:Patient Education Patient Instructions Indication:Morbid obesity Start:31-Dec-2021 Instruction Type:Provider Instructions for Treatment How to Access Health Informa tion Online using Patient Portal and [employer] Apps Indication:Morbid obesity Start:31-Dec-2021 Instruction Type:Patient Education Patient Instructions Indication:BMI 40.0-44.9, adult Start:17-Oct-2021 Instruction Type:Provider Instructions for Treatment How to Access Health Informa tion Online using Patient Portal and [employer] Apps Indication:BMI 40.0-44.9, adult Start:17-Oct-2021 Instruction Type:Patient Education Patient Instructions Indication:BMI 40.0-44.9, adult Start:10-Oct-2021 Instruction Type:Provider Instructions for Treatment How to Access Health Informa tion Online using Patient Portal and [employer] Apps Indication:BMI 40.0-44.9, adult Start:10-Oct-2021 Instruction Type:Patient Education Patient Instructions Indication:Cellulitis Start:03-Oct-2021 Instruction Type:Provider Instructions for Treatment Patient Instructions Indication:BMI 40.0-44.9, adult Start:26-Sep-2021 Instruction Type:Provider Instructions for Treatment How to Access Health Informa tion Online using Patient Portal and [employer] Apps Indication:BMI 40.0-44.9, adult Start:26-Sep-2021 Instruction Type:Patient Education Patient Instructions Indication:Nonsmoker Start:10-Aug-2021 Instruction Type:Provider Instructions for Treatment How to Access Health Informa tion Online using Patient Portal and [employer] Apps Indication:Hypertension Start:10-Aug-2021 Instruction Type:Patient Education Patient Instructions Indication:BMI 40.0-44.9, adult Start:09-Aug-2021 Instruction Type:Provider Instructions for Treatment How to Access Health Informa tion Online using Patient Portal and [employer] Apps Indication:BMI 40.0-44.9, adult Start:09-Aug-2021 Instruction Type:Patient Education Patient Instructions Indication:Nonsmoker Start:28-May-2021 Instruction Type:Provider Instructions for Treatment How to Access Health Informa tion Online using Patient Portal and [employer] Apps Indication:Nonsmoker Start:28-May-2021 Instruction Type:Patient Education Patient Instructions Indication:BMI 40.0-44.9, adult Start:04-Apr-2021 Instruction Type:Provider Instructions for Treatment How to Access Health Informa tion Online using Patient Portal and [employer] Apps Indication:BMI 40.0-44.9, adult Start:04-Apr-2021 Instruction Type:Patient Education Patient Instructions Indication:BMI 40.0-44.9, adult Start:20-Mar-2021 Instruction Type:Provider Instructions for Treatment How to Access Health Informa tion Online using Patient Portal and [employer] Apps Indication:BMI 40.0-44.9, adult Start:20-Mar-2021 Instruction Type:Patient Education Patient Instructions Indication:Type 2 diabetes mellitus Start:13-Dec-2020 Instruction Type:Provider Instructions for Treatment How to Access Health Informa tion Online using Patient Portal and [employer] Apps Indication:Type 2 diabetes mellitus Start:13-Dec-2020 Instruction Type:Patient Education Patient Instructions Indication:Type 2 diabetes mellitus Start:15-Sep-2020 Instruction Type:Provider Instructions for Treatment How to Access Health Informa tion Online using Patient Portal and [employer] Apps Indication:Type 2 diabetes mellitus Start:15-Sep-2020 Instruction Type:Patient Education [facility]; [facility] Work Phone: Instructions* Name Dates Details Patient Instructions Indication:BMI 40.0-44.9, adult Start:25-Jul-2022 Instruction Type:Provider Instructions for Treatment How to Access Health Informa tion Online using Patient Portal and [employer] Apps Indication:BMI 40.0-44.9, adult Start:25-Jul-2022 Instruction Type:Patient Education Patient Instructions Indication:BMI 45.0-49.9, adult Start:10-Jul-2022 Instruction Type:Provider Instructions for Treatment How to Access Health Informa tion Online using Patient Portal and [employer] Apps Indication:BMI 45.0-49.9, adult Start:10-Jul-2022 Instruction Type:Patient Education Patient Instructions Indication:Nonsmoker Start:10-Jun-2022 Instruction Type:Provider Instructions for Treatment How to Access Health Informa tion Online using Patient Portal and [employer] Apps Indication:Nonsmoker Start:10-Jun-2022 Instruction Type:Patient Education Patient Instructions Indication:Nonsmoker Start:10-May-2022 Instruction Type:Provider Instructions for Treatment How to Access Health Informa tion Online using Patient Portal and [employer] Apps Indication:Nonsmoker Start:10-May-2022 Instruction Type:Patient Education Patient Instructions Indication:Nonsmoker Start:14-Mar-2022 Instruction Type:Provider Instructions for Treatment How to Access Health Informa tion Online using Patient Portal and [employer] Apps Indication:Nonsmoker Start:14-Mar-2022 Instruction Type:Patient Education Patient Instructions Indication:Nonsmoker Start:07-Mar-2022 Instruction Type:Provider Instructions for Treatment How to Access Health Informa tion Online using Patient Portal and [employer] Apps Indication:Nonsmoker Start:07-Mar-2022 Instruction Type:Patient Education Patient Instructions Indication:Morbid obesity Start:18-Feb-2022 Instruction Type:Provider Instructions for Treatment How to Access Health Informa tion Online using Patient Portal and [employer] Apps Indication:Morbid obesity Start:18-Feb-2022 Instruction Type:Patient Education Patient Instructions Indication:Morbid obesity Start:31-Dec-2021 Instruction Type:Provider Instructions for Treatment How to Access Health Informa tion Online using Patient Portal and [employer] Apps Indication:Morbid obesity Start:31-Dec-2021 Instruction Type:Patient Education Patient Instructions Indication:BMI 40.0-44.9, adult Start:17-Oct-2021 Instruction Type:Provider Instructions for Treatment How to Access Health Informa tion Online using Patient Portal and [employer] Apps Indication:BMI 40.0-44.9, adult Start:17-Oct-2021 Instruction Type:Patient Education Patient Instructions Indication:BMI 40.0-44.9, adult Start:10-Oct-2021 Instruction Type:Provider Instructions for Treatment How to Access Health Informa tion Online using Patient Portal and [employer] Apps Indication:BMI 40.0-44.9, adult Start:10-Oct-2021 Instruction Type:Patient Education Patient Instructions Indication:Cellulitis Start:03-Oct-2021 Instruction Type:Provider Instructions for Treatment Patient Instructions Indication:BMI 40.0-44.9, adult Start:26-Sep-2021 Instruction Type:Provider Instructions for Treatment How to Access Health Informa tion Online using Patient Portal and [employer] Apps Indication:BMI 40.0-44.9, adult Start:26-Sep-2021 Instruction Type:Patient Education Patient Instructions Indication:Nonsmoker Start:10-Aug-2021 Instruction Type:Provider Instructions for Treatment How to Access Health Informa tion Online using Patient Portal and [employer] Apps Indication:Hypertension Start:10-Aug-2021 Instruction Type:Patient Education Patient Instructions Indication:BMI 40.0-44.9, adult Start:09-Aug-2021 Instruction Type:Provider Instructions for Treatment How to Access Health Informa tion Online using Patient Portal and [employer] Apps Indication:BMI 40.0-44.9, adult Start:09-Aug-2021 Instruction Type:Patient Education Patient Instructions Indication:Nonsmoker Start:28-May-2021 Instruction Type:Provider Instructions for Treatment How to Access Health Informa tion Online using Patient Portal and [employer] Apps Indication:Nonsmoker Start:28-May-2021 Instruction Type:Patient Education Patient Instructions Indication:BMI 40.0-44.9, adult Start:04-Apr-2021 Instruction Type:Provider Instructions for Treatment How to Access Health Informa tion Online using Patient Portal and [employer] Apps Indication:BMI 40.0-44.9, adult Start:04-Apr-2021 Instruction Type:Patient Education Patient Instructions Indication:BMI 40.0-44.9, adult Start:20-Mar-2021 Instruction Type:Provider Instructions for Treatment How to Access Health Informa tion Online using Patient Portal and [employer] Apps Indication:BMI 40.0-44.9, adult Start:20-Mar-2021 Instruction Type:Patient Education Patient Instructions Indication:Type 2 diabetes mellitus Start:13-Dec-2020 Instruction Type:Provider Instructions for Treatment How to Access Health Informa tion Online using Patient Portal and [employer] Apps Indication:Type 2 diabetes mellitus Start:13-Dec-2020 Instruction Type:Patient Education Patient Instructions Indication:Type 2 diabetes mellitus Start:15-Sep-2020 Instruction Type:Provider Instructions for Treatment How to Access Health Informa tion Online using Patient Portal and [employer] Apps Indication:Type 2 diabetes mellitus Start:15-Sep-2020 Instruction Type:Patient Education [facility]; [facility] Work Phone: Instructions* Name Dates Details Patient Instructions Indication:BMI 40.0-44.9, adult Start:25-Jul-2022 Instruction Type:Provider Instructions for Treatment How to Access Health Informa tion Online using Patient Portal and [employer] Apps Indication:BMI 40.0-44.9, adult Start:25-Jul-2022 Instruction Type:Patient Education Patient Instructions Indication:BMI 45.0-49.9, adult Start:10-Jul-2022 Instruction Type:Provider Instructions for Treatment How to Access Health Informa tion Online using Patient Portal and [employer]rd Republican Apps Indication:BMI 45.0-49.9, adult Start:10-Jul-2022 Instruction Type:Patient Education Patient Instructions Indication:Nonsmoker Start:10-Jun-2022 Instruction Type:Provider Instructions for Treatment How to Access Health Informa tion Online using Patient Portal and [employer] Apps Indication:Nonsmoker Start:10-Jun-2022 Instruction Type:Patient Education Patient Instructions Indication:Nonsmoker Start:10-May-2022 Instruction Type:Provider Instructions for Treatment How to Access Health Informa tion Online using Patient Portal and [employer] Apps Indication:Nonsmoker Start:10-May-2022 Instruction Type:Patient Education Patient Instructions Indication:Nonsmoker Start:14-Mar-2022 Instruction Type:Provider Instructions for Treatment How to Access Health Informa tion Online using Patient Portal and [employer] Apps Indication:Nonsmoker Start:14-Mar-2022 Instruction Type:Patient Education Patient Instructions Indication:Nonsmoker Start:07-Mar-2022 Instruction Type:Provider Instructions for Treatment How to Access Health Informa tion Online using Patient Portal and [employer] Apps Indication:Nonsmoker Start:07-Mar-2022 Instruction Type:Patient Education Patient Instructions Indication:Morbid obesity Start:18-Feb-2022 Instruction Type:Provider Instructions for Treatment How to Access Health Informa tion Online using Patient Portal and [employer] Apps Indication:Morbid obesity Start:18-Feb-2022 Instruction Type:Patient Education Patient Instructions Indication:Morbid obesity Start:31-Dec-2021 Instruction Type:Provider Instructions for Treatment How to Access Health Informa tion Online using Patient Portal and [employer] Apps Indication:Morbid obesity Start:31-Dec-2021 Instruction Type:Patient Education Patient Instructions Indication:BMI 40.0-44.9, adult Start:17-Oct-2021 Instruction Type:Provider Instructions for Treatment How to Access Health Informa tion Online using Patient Portal and [employer] Apps Indication:BMI 40.0-44.9, adult Start:17-Oct-2021 Instruction Type:Patient Education Patient Instructions Indication:BMI 40.0-44.9, adult Start:10-Oct-2021 Instruction Type:Provider Instructions for Treatment How to Access Health Informa tion Online using Patient Portal and [employer] Apps Indication:BMI 40.0-44.9, adult Start:10-Oct-2021 Instruction Type:Patient Education Patient Instructions Indication:Cellulitis Start:03-Oct-2021 Instruction Type:Provider Instructions for Treatment Patient Instructions Indication:BMI 40.0-44.9, adult Start:26-Sep-2021 Instruction Type:Provider Instructions for Treatment How to Access Health Informa tion Online using Patient Portal and [employer] Apps Indication:BMI 40.0-44.9, adult Start:26-Sep-2021 Instruction Type:Patient Education Patient Instructions Indication:Nonsmoker Start:10-Aug-2021 Instruction Type:Provider Instructions for Treatment How to Access Health Informa tion Online using Patient Portal and [employer] Apps Indication:Hypertension Start:10-Aug-2021 Instruction Type:Patient Education Patient Instructions Indication:BMI 40.0-44.9, adult Start:09-Aug-2021 Instruction Type:Provider Instructions for Treatment How to Access Health Informa tion Online using Patient Portal and [employer]rd [employer] Apps Indication:BMI 40.0-44.9, adult Start:09-Aug-2021 Instruction Type:Patient Education Patient Instructions Indication:Nonsmoker Start:28-May-2021 Instruction Type:Provider Instructions for Treatment How to Access Health Informa tion Online using Patient Portal and [employer]rd [employer] Apps Indication:Nonsmoker Start:28-May-2021 Instruction Type:Patient Education Patient Instructions Indication:BMI 40.0-44.9, adult Start:04-Apr-2021 Instruction Type:Provider Instructions for Treatment How to Access Health Informa tion Online using Patient Portal and [employer]rd [employer] Apps Indication:BMI 40.0-44.9, adult Start:04-Apr-2021 Instruction Type:Patient Education Patient Instructions Indication:BMI 40.0-44.9, adult Start:20-Mar-2021 Instruction Type:Provider Instructions for Treatment How to Access Health Informa tion Online using Patient Portal and [employer]rd [employer] Apps Indication:BMI 40.0-44.9, adult Start:20-Mar-2021 Instruction Type:Patient Education Patient Instructions Indication:Type 2 diabetes mellitus Start:13-Dec-2020 Instruction Type:Provider Instructions for Treatment How to Access Health Informa tion Online using Patient Portal and 3rd [employer] Apps Indication:Type 2 diabetes mellitus Start:13-Dec-2020 Instruction Type:Patient Education Patient Instructions Indication:Type 2 diabetes mellitus Start:15-Sep-2020 Instruction Type:Provider Instructions for Treatment How to Access Health Informa tion Online using Patient Portal and 3rd [employer] Apps Indication:Type 2 diabetes mellitus Start:15-Sep-2020 Instruction Type:Patient Education [facility]; [facility] Work Phone: Instructions* Name Dates Details Patient Instructions Indication:BMI 40.0-44.9, adult Start:25-Jul-2022 Instruction Type:Provider Instructions for Treatment How to Access Health Informa tion Online using Patient Portal and [employer]rd [employer] Apps Indication:BMI 40.0-44.9, adult Start:25-Jul-2022 Instruction Type:Patient Education Patient Instructions Indication:BMI 45.0-49.9, adult Start:10-Jul-2022 Instruction Type:Provider Instructions for Treatment How to Access Health Informa tion Online using Patient Portal and [employer]rd [employer] Apps Indication:BMI 45.0-49.9, adult Start:10-Jul-2022 Instruction Type:Patient Education Patient Instructions Indication:Nonsmoker Start:10-Jun-2022 Instruction Type:Provider Instructions for Treatment How to Access Health Informa tion Online using Patient Portal and 3rd [employer] Apps Indication:Nonsmoker Start:10-Jun-2022 Instruction Type:Patient Education Patient Instructions Indication:Nonsmoker Start:10-May-2022 Instruction Type:Provider Instructions for Treatment How to Access Health Informa tion Online using Patient Portal and 3rd [employer] Apps Indication:Nonsmoker Start:10-May-2022 Instruction Type:Patient Education Patient Instructions Indication:Nonsmoker Start:14-Mar-2022 Instruction Type:Provider Instructions for Treatment How to Access Health Informa tion Online using Patient Portal and 3rd [employer] Apps Indication:Nonsmoker Start:14-Mar-2022 Instruction Type:Patient Education Patient Instructions Indication:Nonsmoker Start:07-Mar-2022 Instruction Type:Provider Instructions for Treatment How to Access Health Informa tion Online using Patient Portal and 3rd [employer] Apps Indication:Nonsmoker Start:07-Mar-2022 Instruction Type:Patient Education Patient Instructions Indication:Morbid obesity Start:18-Feb-2022 Instruction Type:Provider Instructions for Treatment How to Access Health Informa tion Online using Patient Portal and [employer]rd [employer] Apps Indication:Morbid obesity Start:18-Feb-2022 Instruction Type:Patient Education Patient Instructions Indication:Morbid obesity Start:31-Dec-2021 Instruction Type:Provider Instructions for Treatment How to Access Health Informa tion Online using Patient Portal and 3rd [employer] Apps Indication:Morbid obesity Start:31-Dec-2021 Instruction Type:Patient Education Patient Instructions Indication:BMI 40.0-44.9, adult Start:17-Oct-2021 Instruction Type:Provider Instructions for Treatment How to Access Health Informa tion Online using Patient Portal and [employer]rd [employer] Apps Indication:BMI 40.0-44.9, adult Start:17-Oct-2021 Instruction Type:Patient Education Patient Instructions Indication:BMI 40.0-44.9, adult Start:10-Oct-2021 Instruction Type:Provider Instructions for Treatment How to Access Health Informa tion Online using Patient Portal and [employer]rd [employer] Apps Indication:BMI 40.0-44.9, adult Start:10-Oct-2021 Instruction Type:Patient Education Patient Instructions Indication:Cellulitis Start:03-Oct-2021 Instruction Type:Provider Instructions for Treatment Patient Instructions Indication:BMI 40.0-44.9, adult Start:26-Sep-2021 Instruction Type:Provider Instructions for Treatment How to Access Health Informa tion Online using Patient Portal and 3rd [employer] Apps Indication:BMI 40.0-44.9, adult Start:26-Sep-2021 Instruction Type:Patient Education Patient Instructions Indication:Nonsmoker Start:10-Aug-2021 Instruction Type:Provider Instructions for Treatment How to Access Health Informa tion Online using Patient Portal and 3rd [employer] Apps Indication:Hypertension Start:10-Aug-2021 Instruction Type:Patient Education Patient Instructions Indication:BMI 40.0-44.9, adult Start:09-Aug-2021 Instruction Type:Provider Instructions for Treatment How to Access Health Informa tion Online using Patient Portal and 3rd [employer] Apps Indication:BMI 40.0-44.9, adult Start:09-Aug-2021 Instruction Type:Patient Education Patient Instructions Indication:Nonsmoker Start:28-May-2021 Instruction Type:Provider Instructions for Treatment How to Access Health Informa tion Online using Patient Portal and 3rd [employer] Apps Indication:Nonsmoker Start:28-May-2021 Instruction Type:Patient Education Patient Instructions Indication:BMI 40.0-44.9, adult Start:04-Apr-2021 Instruction Type:Provider Instructions for Treatment How to Access Health Informa tion Online using Patient Portal and [employer]rd [employer] Apps Indication:BMI 40.0-44.9, adult Start:04-Apr-2021 Instruction Type:Patient Education Patient Instructions Indication:BMI 40.0-44.9, adult Start:20-Mar-2021 Instruction Type:Provider Instructions for Treatment How to Access Health Informa tion Online using Patient Portal and [employer] Apps Indication:BMI 40.0-44.9, adult Start:20-Mar-2021 Instruction Type:Patient Education Patient Instructions Indication:Type 2 diabetes mellitus Start:13-Dec-2020 Instruction Type:Provider Instructions for Treatment How to Access Health Informa tion Online using Patient Portal and [employer] Apps Indication:Type 2 diabetes mellitus Start:13-Dec-2020 Instruction Type:Patient Education Patient Instructions Indication:Type 2 diabetes mellitus Start:15-Sep-2020 Instruction Type:Provider Instructions for Treatment How to Access Health Informa tion Online using Patient Portal and [employer]rd [employer] Apps Indication:Type 2 diabetes mellitus Start:15-Sep-2020 Instruction Type:Patient Education [facility]; [facility] Work Phone: Instructions* Name Dates Details Patient Instructions Indication:BMI 40.0-44.9, adult Start:25-Jul-2022 Instruction Type:Provider Instructions for Treatment How to Access Health Informa tion Online using Patient Portal and [employer]rd [employer] Apps Indication:BMI 40.0-44.9, adult Start:25-Jul-2022 Instruction Type:Patient Education Patient Instructions Indication:BMI 45.0-49.9, adult Start:10-Jul-2022 Instruction Type:Provider Instructions for Treatment How to Access Health Informa tion Online using Patient Portal and 3rd [employer] Apps Indication:BMI 45.0-49.9, adult Start:10-Jul-2022 Instruction Type:Patient Education Patient Instructions Indication:Nonsmoker Start:10-Jun-2022 Instruction Type:Provider Instructions for Treatment How to Access Health Informa tion Online using Patient Portal and 3rd [employer] Apps Indication:Nonsmoker Start:10-Jun-2022 Instruction Type:Patient Education Patient Instructions Indication:Nonsmoker Start:10-May-2022 Instruction Type:Provider Instructions for Treatment How to Access Health Informa tion Online using Patient Portal and 3rd [employer] Apps Indication:Nonsmoker Start:10-May-2022 Instruction Type:Patient Education Patient Instructions Indication:Nonsmoker Start:14-Mar-2022 Instruction Type:Provider Instructions for Treatment How to Access Health Informa tion Online using Patient Portal and 3rd [employer] Apps Indication:Nonsmoker Start:14-Mar-2022 Instruction Type:Patient Education Patient Instructions Indication:Nonsmoker Start:07-Mar-2022 Instruction Type:Provider Instructions for Treatment How to Access Health Informa tion Online using Patient Portal and 3rd [employer] Apps Indication:Nonsmoker Start:07-Mar-2022 Instruction Type:Patient Education Patient Instructions Indication:Morbid obesity Start:18-Feb-2022 Instruction Type:Provider Instructions for Treatment How to Access Health Informa tion Online using Patient Portal and [employer]rd [employer] Apps Indication:Morbid obesity Start:18-Feb-2022 Instruction Type:Patient Education Patient Instructions Indication:Morbid obesity Start:31-Dec-2021 Instruction Type:Provider Instructions for Treatment How to Access Health Informa tion Online using Patient Portal and [employer]rd [employer] Apps Indication:Morbid obesity Start:31-Dec-2021 Instruction Type:Patient Education Patient Instructions Indication:BMI 40.0-44.9, adult Start:17-Oct-2021 Instruction Type:Provider Instructions for Treatment How to Access Health Informa tion Online using Patient Portal and [employer] Apps Indication:BMI 40.0-44.9, adult Start:17-Oct-2021 Instruction Type:Patient Education Patient Instructions Indication:BMI 40.0-44.9, adult Start:10-Oct-2021 Instruction Type:Provider Instructions for Treatment How to Access Health Informa tion Online using Patient Portal and 3rd [employer] Apps Indication:BMI 40.0-44.9, adult Start:10-Oct-2021 Instruction Type:Patient Education Patient Instructions Indication:Cellulitis Start:03-Oct-2021 Instruction Type:Provider Instructions for Treatment Patient Instructions Indication:BMI 40.0-44.9, adult Start:26-Sep-2021 Instruction Type:Provider Instructions for Treatment How to Access Health Informa tion Online using Patient Portal and [employer]rd [employer] Apps Indication:BMI 40.0-44.9, adult Start:26-Sep-2021 Instruction Type:Patient Education Patient Instructions Indication:Nonsmoker Start:10-Aug-2021 Instruction Type:Provider Instructions for Treatment How to Access Health Informa tion Online using Patient Portal and 3rd [employer] Apps Indication:Hypertension Start:10-Aug-2021 Instruction Type:Patient Education Patient Instructions Indication:BMI 40.0-44.9, adult Start:09-Aug-2021 Instruction Type:Provider Instructions for Treatment How to Access Health Informa tion Online using Patient Portal and 3rd [employer] Apps Indication:BMI 40.0-44.9, adult Start:09-Aug-2021 Instruction Type:Patient Education Patient Instructions Indication:Nonsmoker Start:28-May-2021 Instruction Type:Provider Instructions for Treatment How to Access Health Informa tion Online using Patient Portal and 3rd [employer] Apps Indication:Nonsmoker Start:28-May-2021 Instruction Type:Patient Education Patient Instructions Indication:BMI 40.0-44.9, adult Start:04-Apr-2021 Instruction Type:Provider Instructions for Treatment How to Access Health Informa tion Online using Patient Portal and [employer] Apps Indication:BMI 40.0-44.9, adult Start:04-Apr-2021 Instruction Type:Patient Education Patient Instructions Indication:BMI 40.0-44.9, adult Start:20-Mar-2021 Instruction Type:Provider Instructions for Treatment How to Access Health Informa tion Online using Patient Portal and 3rd [employer] Apps Indication:BMI 40.0-44.9, adult Start:20-Mar-2021 Instruction Type:Patient Education Patient Instructions Indication:Type 2 diabetes mellitus Start:13-Dec-2020 Instruction Type:Provider Instructions for Treatment How to Access Health Informa tion Online using Patient Portal and 3rd [employer] Apps Indication:Type 2 diabetes mellitus Start:13-Dec-2020 Instruction Type:Patient Education Patient Instructions Indication:Type 2 diabetes mellitus Start:15-Sep-2020 Instruction Type:Provider Instructions for Treatment How to Access Health Informa tion Online using Patient Portal and [employer] Apps Indication:Type 2 diabetes mellitus Start:15-Sep-2020 Instruction Type:Patient Education [facility]; [facility] Work Phone: Instructions* Name Dates Details Patient Instructions Indication:BMI 40.0-44.9, adult Start:25-Jul-2022 Instruction Type:Provider Instructions for Treatment How to Access Health Informa tion Online using Patient Portal and [employer]rd [employer] Apps Indication:BMI 40.0-44.9, adult Start:25-Jul-2022 Instruction Type:Patient Education Patient Instructions Indication:BMI 45.0-49.9, adult Start:10-Jul-2022 Instruction Type:Provider Instructions for Treatment How to Access Health Informa tion Online using Patient Portal and 3rd [employer] Apps Indication:BMI 45.0-49.9, adult Start:10-Jul-2022 Instruction Type:Patient Education Patient Instructions Indication:Nonsmoker Start:10-Jun-2022 Instruction Type:Provider Instructions for Treatment How to Access Health Informa tion Online using Patient Portal and 3rd [employer] Apps Indication:Nonsmoker Start:10-Jun-2022 Instruction Type:Patient Education Patient Instructions Indication:Nonsmoker Start:10-May-2022 Instruction Type:Provider Instructions for Treatment How to Access Health Informa tion Online using Patient Portal and 3rd [employer] Apps Indication:Nonsmoker Start:10-May-2022 Instruction Type:Patient Education Patient Instructions Indication:Nonsmoker Start:14-Mar-2022 Instruction Type:Provider Instructions for Treatment How to Access Health Informa tion Online using Patient Portal and 3rd [employer] Apps Indication:Nonsmoker Start:14-Mar-2022 Instruction Type:Patient Education Patient Instructions Indication:Nonsmoker Start:07-Mar-2022 Instruction Type:Provider Instructions for Treatment How to Access Health Informa tion Online using Patient Portal and 3rd [employer] Apps Indication:Nonsmoker Start:07-Mar-2022 Instruction Type:Patient Education Patient Instructions Indication:Morbid obesity Start:18-Feb-2022 Instruction Type:Provider Instructions for Treatment How to Access Health Informa tion Online using Patient Portal and 3rd [employer] Apps Indication:Morbid obesity Start:18-Feb-2022 Instruction Type:Patient Education Patient Instructions Indication:Morbid obesity Start:31-Dec-2021 Instruction Type:Provider Instructions for Treatment How to Access Health Informa tion Online using Patient Portal and 3rd [employer] Apps Indication:Morbid obesity Start:31-Dec-2021 Instruction Type:Patient Education Patient Instructions Indication:BMI 40.0-44.9, adult Start:17-Oct-2021 Instruction Type:Provider Instructions for Treatment How to Access Health Informa tion Online using Patient Portal and [employer]rd [employer] Apps Indication:BMI 40.0-44.9, adult Start:17-Oct-2021 Instruction Type:Patient Education Patient Instructions Indication:BMI 40.0-44.9, adult Start:10-Oct-2021 Instruction Type:Provider Instructions for Treatment How to Access Health Informa tion Online using Patient Portal and 3rd [employer] Apps Indication:BMI 40.0-44.9, adult Start:10-Oct-2021 Instruction Type:Patient Education Patient Instructions Indication:Cellulitis Start:03-Oct-2021 Instruction Type:Provider Instructions for Treatment Patient Instructions Indication:BMI 40.0-44.9, adult Start:26-Sep-2021 Instruction Type:Provider Instructions for Treatment How to Access Health Informa tion Online using Patient Portal and 3rd [employer] Apps Indication:BMI 40.0-44.9, adult Start:26-Sep-2021 Instruction Type:Patient Education Patient Instructions Indication:Nonsmoker Start:10-Aug-2021 Instruction Type:Provider Instructions for Treatment How to Access Health Informa tion Online using Patient Portal and 3rd [employer] Apps Indication:Hypertension Start:10-Aug-2021 Instruction Type:Patient Education Patient Instructions Indication:BMI 40.0-44.9, adult Start:09-Aug-2021 Instruction Type:Provider Instructions for Treatment How to Access Health Informa tion Online using Patient Portal and 3rd [employer] Apps Indication:BMI 40.0-44.9, adult Start:09-Aug-2021 Instruction Type:Patient Education Patient Instructions Indication:Nonsmoker Start:28-May-2021 Instruction Type:Provider Instructions for Treatment How to Access Health Informa tion Online using Patient Portal and 3rd [employer] Apps Indication:Nonsmoker Start:28-May-2021 Instruction Type:Patient Education Patient Instructions Indication:BMI 40.0-44.9, adult Start:04-Apr-2021 Instruction Type:Provider Instructions for Treatment How to Access Health Informa tion Online using Patient Portal and [employer] Apps Indication:BMI 40.0-44.9, adult Start:04-Apr-2021 Instruction Type:Patient Education Patient Instructions Indication:BMI 40.0-44.9, adult Start:20-Mar-2021 Instruction Type:Provider Instructions for Treatment How to Access Health Informa tion Online using Patient Portal and 3[employer] Apps Indication:BMI 40.0-44.9, adult Start:20-Mar-2021 Instruction Type:Patient Education Patient Instructions Indication:Type 2 diabetes mellitus Start:13-Dec-2020 Instruction Type:Provider Instructions for Treatment How to Access Health Informa tion Online using Patient Portal and 3rd [employer] Apps Indication:Type 2 diabetes mellitus Start:13-Dec-2020 Instruction Type:Patient Education Patient Instructions Indication:Type 2 diabetes mellitus Start:15-Sep-2020 Instruction Type:Provider Instructions for Treatment How to Access Health Informa tion Online using Patient Portal and 3rd [employer] Apps Indication:Type 2 diabetes mellitus Start:15-Sep-2020 Instruction Type:Patient Education [facility]; [facility] Work Phone: Instructions* Name Dates Details Patient Instructions Indication:Nonsmoker Start:29-Aug-2022 Instruction Type:Provider Instructions for Treatment How to Access Health Informa tion Online using Patient Portal and 3rd [employer] Apps Indication:Nonsmoker Start:29-Aug-2022 Instruction Type:Patient Education Patient Instructions Indication:BMI 40.0-44.9, adult Start:25-Jul-2022 Instruction Type:Provider Instructions for Treatment How to Access Health Informa tion Online using Patient Portal and 3rd [employer] Apps Indication:BMI 40.0-44.9, adult Start:25-Jul-2022 Instruction Type:Patient Education Patient Instructions Indication:BMI 45.0-49.9, adult Start:10-Jul-2022 Instruction Type:Provider Instructions for Treatment How to Access Health Informa tion Online using Patient Portal and 3rd [employer] Apps Indication:BMI 45.0-49.9, adult Start:10-Jul-2022 Instruction Type:Patient Education Patient Instructions Indication:Nonsmoker Start:10-Jun-2022 Instruction Type:Provider Instructions for Treatment How to Access Health Informa tion Online using Patient Portal and 3rd [employer] Apps Indication:Nonsmoker Start:10-Jun-2022 Instruction Type:Patient Education Patient Instructions Indication:Nonsmoker Start:10-May-2022 Instruction Type:Provider Instructions for Treatment How to Access Health Informa tion Online using Patient Portal and 3rd [employer] Apps Indication:Nonsmoker Start:10-May-2022 Instruction Type:Patient Education Patient Instructions Indication:Nonsmoker Start:14-Mar-2022 Instruction Type:Provider Instructions for Treatment How to Access Health Informa tion Online using Patient Portal and 3rd Republican Apps Indication:Nonsmoker Start:14-Mar-2022 Instruction Type:Patient Education Patient Instructions Indication:Nonsmoker Start:07-Mar-2022 Instruction Type:Provider Instructions for Treatment How to Access Health Informa tion Online using Patient Portal and 3rd Republican Apps Indication:Nonsmoker Start:07-Mar-2022 Instruction Type:Patient Education Patient Instructions Indication:Morbid obesity Start:18-Feb-2022 Instruction Type:Provider Instructions for Treatment How to Access Health Informa tion Online using Patient Portal and 3rd [employer] Apps Indication:Morbid obesity Start:18-Feb-2022 Instruction Type:Patient Education Patient Instructions Indication:Morbid obesity Start:31-Dec-2021 Instruction Type:Provider Instructions for Treatment How to Access Health Informa tion Online using Patient Portal and 3rd [employer] Apps Indication:Morbid obesity Start:31-Dec-2021 Instruction Type:Patient Education Patient Instructions Indication:BMI 40.0-44.9, adult Start:17-Oct-2021 Instruction Type:Provider Instructions for Treatment How to Access Health Informa tion Online using Patient Portal and 3rd [employer] Apps Indication:BMI 40.0-44.9, adult Start:17-Oct-2021 Instruction Type:Patient Education Patient Instructions Indication:BMI 40.0-44.9, adult Start:10-Oct-2021 Instruction Type:Provider Instructions for Treatment How to Access Health Informa tion Online using Patient Portal and 3rd [employer] Apps Indication:BMI 40.0-44.9, adult Start:10-Oct-2021 Instruction Type:Patient Education Patient Instructions Indication:Cellulitis Start:03-Oct-2021 Instruction Type:Provider Instructions for Treatment Patient Instructions Indication:BMI 40.0-44.9, adult Start:26-Sep-2021 Instruction Type:Provider Instructions for Treatment How to Access Health Informa tion Online using Patient Portal and 3rd [employer] Apps Indication:BMI 40.0-44.9, adult Start:26-Sep-2021 Instruction Type:Patient Education Patient Instructions Indication:Nonsmoker Start:10-Aug-2021 Instruction Type:Provider Instructions for Treatment How to Access Health Informa tion Online using Patient Portal and 3rd [employer] Apps Indication:Hypertension Start:10-Aug-2021 Instruction Type:Patient Education Patient Instructions Indication:BMI 40.0-44.9, adult Start:09-Aug-2021 Instruction Type:Provider Instructions for Treatment How to Access Health Informa tion Online using Patient Portal and 3rd [employer] Apps Indication:BMI 40.0-44.9, adult Start:09-Aug-2021 Instruction Type:Patient Education Patient Instructions Indication:Nonsmoker Start:28-May-2021 Instruction Type:Provider Instructions for Treatment How to Access Health Informa tion Online using Patient Portal and 3rd [employer] Apps Indication:Nonsmoker Start:28-May-2021 Instruction Type:Patient Education Patient Instructions Indication:BMI 40.0-44.9, adult Start:04-Apr-2021 Instruction Type:Provider Instructions for Treatment How to Access Health Informa tion Online using Patient Portal and 3rd [employer] Apps Indication:BMI 40.0-44.9, adult Start:04-Apr-2021 Instruction Type:Patient Education Patient Instructions Indication:BMI 40.0-44.9, adult Start:20-Mar-2021 Instruction Type:Provider Instructions for Treatment How to Access Health Informa tion Online using Patient Portal and [employer] Apps Indication:BMI 40.0-44.9, adult Start:20-Mar-2021 Instruction Type:Patient Education Patient Instructions Indication:Type 2 diabetes mellitus Start:13-Dec-2020 Instruction Type:Provider Instructions for Treatment How to Access Health Informa tion Online using Patient Portal and [employer] Apps Indication:Type 2 diabetes mellitus Start:13-Dec-2020 Instruction Type:Patient Education Patient Instructions Indication:Type 2 diabetes mellitus Start:15-Sep-2020 Instruction Type:Provider Instructions for Treatment How to Access Health Informa tion Online using Patient Portal and [employer] Apps Indication:Type 2 diabetes mellitus Start:15-Sep-2020 Instruction Type:Patient Education [facility]; [facility] Work Phone: Instructions* Name Dates Details Patient Instructions Indication:Nonsmoker Start:29-Aug-2022 Instruction Type:Provider Instructions for Treatment How to Access Health Informa tion Online using Patient Portal and [employer]rd [employer] Apps Indication:Nonsmoker Start:29-Aug-2022 Instruction Type:Patient Education Patient Instructions Indication:BMI 40.0-44.9, adult Start:25-Jul-2022 Instruction Type:Provider Instructions for Treatment How to Access Health Informa tion Online using Patient Portal and [employer]rd [employer] Apps Indication:BMI 40.0-44.9, adult Start:25-Jul-2022 Instruction Type:Patient Education Patient Instructions Indication:BMI 45.0-49.9, adult Start:10-Jul-2022 Instruction Type:Provider Instructions for Treatment How to Access Health Informa tion Online using Patient Portal and [employer]rd [employer] Apps Indication:BMI 45.0-49.9, adult Start:10-Jul-2022 Instruction Type:Patient Education Patient Instructions Indication:Nonsmoker Start:10-Jun-2022 Instruction Type:Provider Instructions for Treatment How to Access Health Informa tion Online using Patient Portal and 3rd [employer] Apps Indication:Nonsmoker Start:10-Jun-2022 Instruction Type:Patient Education Patient Instructions Indication:Nonsmoker Start:10-May-2022 Instruction Type:Provider Instructions for Treatment How to Access Health Informa tion Online using Patient Portal and [employer]rd [employer] Apps Indication:Nonsmoker Start:10-May-2022 Instruction Type:Patient Education Patient Instructions Indication:Nonsmoker Start:14-Mar-2022 Instruction Type:Provider Instructions for Treatment How to Access Health Informa tion Online using Patient Portal and 3rd [employer] Apps Indication:Nonsmoker Start:14-Mar-2022 Instruction Type:Patient Education Patient Instructions Indication:Nonsmoker Start:07-Mar-2022 Instruction Type:Provider Instructions for Treatment How to Access Health Informa tion Online using Patient Portal and [employer]rd [employer] Apps Indication:Nonsmoker Start:07-Mar-2022 Instruction Type:Patient Education Patient Instructions Indication:Morbid obesity Start:18-Feb-2022 Instruction Type:Provider Instructions for Treatment How to Access Health Informa tion Online using Patient Portal and 3rd [employer] Apps Indication:Morbid obesity Start:18-Feb-2022 Instruction Type:Patient Education Patient Instructions Indication:Morbid obesity Start:31-Dec-2021 Instruction Type:Provider Instructions for Treatment How to Access Health Informa tion Online using Patient Portal and 3rd [employer] Apps Indication:Morbid obesity Start:31-Dec-2021 Instruction Type:Patient Education Patient Instructions Indication:BMI 40.0-44.9, adult Start:17-Oct-2021 Instruction Type:Provider Instructions for Treatment How to Access Health Informa tion Online using Patient Portal and [employer]rd [employer] Apps Indication:BMI 40.0-44.9, adult Start:17-Oct-2021 Instruction Type:Patient Education Patient Instructions Indication:BMI 40.0-44.9, adult Start:10-Oct-2021 Instruction Type:Provider Instructions for Treatment How to Access Health Informa tion Online using Patient Portal and [employer]rd [employer] Apps Indication:BMI 40.0-44.9, adult Start:10-Oct-2021 Instruction Type:Patient Education Patient Instructions Indication:Cellulitis Start:03-Oct-2021 Instruction Type:Provider Instructions for Treatment Patient Instructions Indication:BMI 40.0-44.9, adult Start:26-Sep-2021 Instruction Type:Provider Instructions for Treatment How to Access Health Informa tion Online using Patient Portal and [employer]rd [employer] Apps Indication:BMI 40.0-44.9, adult Start:26-Sep-2021 Instruction Type:Patient Education Patient Instructions Indication:Nonsmoker Start:10-Aug-2021 Instruction Type:Provider Instructions for Treatment How to Access Health Informa tion Online using Patient Portal and [employer]rd [employer] Apps Indication:Hypertension Start:10-Aug-2021 Instruction Type:Patient Education Patient Instructions Indication:BMI 40.0-44.9, adult Start:09-Aug-2021 Instruction Type:Provider Instructions for Treatment How to Access Health Informa tion Online using Patient Portal and [employer]rd [employer] Apps Indication:BMI 40.0-44.9, adult Start:09-Aug-2021 Instruction Type:Patient Education Patient Instructions Indication:Nonsmoker Start:28-May-2021 Instruction Type:Provider Instructions for Treatment How to Access Health Informa tion Online using Patient Portal and [employer]rd [employer] Apps Indication:Nonsmoker Start:28-May-2021 Instruction Type:Patient Education Patient Instructions Indication:BMI 40.0-44.9, adult Start:04-Apr-2021 Instruction Type:Provider Instructions for Treatment How to Access Health Informa tion Online using Patient Portal and [employer]rd [employer] Apps Indication:BMI 40.0-44.9, adult Start:04-Apr-2021 Instruction Type:Patient Education Patient Instructions Indication:BMI 40.0-44.9, adult Start:20-Mar-2021 Instruction Type:Provider Instructions for Treatment How to Access Health Informa tion Online using Patient Portal and [employer]rd [employer] Apps Indication:BMI 40.0-44.9, adult Start:20-Mar-2021 Instruction Type:Patient Education Patient Instructions Indication:Type 2 diabetes mellitus Start:13-Dec-2020 Instruction Type:Provider Instructions for Treatment How to Access Health Informa tion Online using Patient Portal and [employer]rd [employer] Apps Indication:Type 2 diabetes mellitus Start:13-Dec-2020 Instruction Type:Patient Education Patient Instructions Indication:Type 2 diabetes mellitus Start:15-Sep-2020 Instruction Type:Provider Instructions for Treatment How to Access Health Informa tion Online using Patient Portal and [employer]rd [employer] Apps Indication:Type 2 diabetes mellitus Start:15-Sep-2020 Instruction Type:Patient Education [facility]; [facility] Work Phone: Instructions* Name Dates Details Patient Instructions Indication:Nonsmoker Start:29-Aug-2022 Instruction Type:Provider Instructions for Treatment How to Access Health Informa tion Online using Patient Portal and [employer]rd [employer] Apps Indication:Nonsmoker Start:29-Aug-2022 Instruction Type:Patient Education Patient Instructions Indication:BMI 40.0-44.9, adult Start:25-Jul-2022 Instruction Type:Provider Instructions for Treatment How to Access Health Informa tion Online using Patient Portal and [employer] Apps Indication:BMI 40.0-44.9, adult Start:25-Jul-2022 Instruction Type:Patient Education Patient Instructions Indication:BMI 45.0-49.9, adult Start:10-Jul-2022 Instruction Type:Provider Instructions for Treatment How to Access Health Informa tion Online using Patient Portal and [employer]rd [employer] Apps Indication:BMI 45.0-49.9, adult Start:10-Jul-2022 Instruction Type:Patient Education Patient Instructions Indication:Nonsmoker Start:10-Jun-2022 Instruction Type:Provider Instructions for Treatment How to Access Health Informa tion Online using Patient Portal and [employer]rd [employer] Apps Indication:Nonsmoker Start:10-Jun-2022 Instruction Type:Patient Education Patient Instructions Indication:Nonsmoker Start:10-May-2022 Instruction Type:Provider Instructions for Treatment How to Access Health Informa tion Online using Patient Portal and [employer]rd [employer] Apps Indication:Nonsmoker Start:10-May-2022 Instruction Type:Patient Education Patient Instructions Indication:Nonsmoker Start:14-Mar-2022 Instruction Type:Provider Instructions for Treatment How to Access Health Informa tion Online using Patient Portal and 3rd [employer] Apps Indication:Nonsmoker Start:14-Mar-2022 Instruction Type:Patient Education Patient Instructions Indication:Nonsmoker Start:07-Mar-2022 Instruction Type:Provider Instructions for Treatment How to Access Health Informa tion Online using Patient Portal and [employer]rd [employer] Apps Indication:Nonsmoker Start:07-Mar-2022 Instruction Type:Patient Education Patient Instructions Indication:Morbid obesity Start:18-Feb-2022 Instruction Type:Provider Instructions for Treatment How to Access Health Informa tion Online using Patient Portal and [employer] Apps Indication:Morbid obesity Start:18-Feb-2022 Instruction Type:Patient Education Patient Instructions Indication:Morbid obesity Start:31-Dec-2021 Instruction Type:Provider Instructions for Treatment How to Access Health Informa tion Online using Patient Portal and [employer] Apps Indication:Morbid obesity Start:31-Dec-2021 Instruction Type:Patient Education Patient Instructions Indication:BMI 40.0-44.9, adult Start:17-Oct-2021 Instruction Type:Provider Instructions for Treatment How to Access Health Informa tion Online using Patient Portal and [employer] Apps Indication:BMI 40.0-44.9, adult Start:17-Oct-2021 Instruction Type:Patient Education Patient Instructions Indication:BMI 40.0-44.9, adult Start:10-Oct-2021 Instruction Type:Provider Instructions for Treatment How to Access Health Informa tion Online using Patient Portal and 3rd [employer] Apps Indication:BMI 40.0-44.9, adult Start:10-Oct-2021 Instruction Type:Patient Education Patient Instructions Indication:Cellulitis Start:03-Oct-2021 Instruction Type:Provider Instructions for Treatment Patient Instructions Indication:BMI 40.0-44.9, adult Start:26-Sep-2021 Instruction Type:Provider Instructions for Treatment How to Access Health Informa tion Online using Patient Portal and [employer] Apps Indication:BMI 40.0-44.9, adult Start:26-Sep-2021 Instruction Type:Patient Education Patient Instructions Indication:Nonsmoker Start:10-Aug-2021 Instruction Type:Provider Instructions for Treatment How to Access Health Informa tion Online using Patient Portal and [employer]rd [employer] Apps Indication:Hypertension Start:10-Aug-2021 Instruction Type:Patient Education Patient Instructions Indication:BMI 40.0-44.9, adult Start:09-Aug-2021 Instruction Type:Provider Instructions for Treatment How to Access Health Informa tion Online using Patient Portal and [employer]rd [employer] Apps Indication:BMI 40.0-44.9, adult Start:09-Aug-2021 Instruction Type:Patient Education Patient Instructions Indication:Nonsmoker Start:28-May-2021 Instruction Type:Provider Instructions for Treatment How to Access Health Informa tion Online using Patient Portal and [employer]rd [employer] Apps Indication:Nonsmoker Start:28-May-2021 Instruction Type:Patient Education Patient Instructions Indication:BMI 40.0-44.9, adult Start:04-Apr-2021 Instruction Type:Provider Instructions for Treatment How to Access Health Informa tion Online using Patient Portal and [employer] Apps Indication:BMI 40.0-44.9, adult Start:04-Apr-2021 Instruction Type:Patient Education Patient Instructions Indication:BMI 40.0-44.9, adult Start:20-Mar-2021 Instruction Type:Provider Instructions for Treatment How to Access Health Informa tion Online using Patient Portal and [employer] Apps Indication:BMI 40.0-44.9, adult Start:20-Mar-2021 Instruction Type:Patient Education Patient Instructions Indication:Type 2 diabetes mellitus Start:13-Dec-2020 Instruction Type:Provider Instructions for Treatment How to Access Health Informa tion Online using Patient Portal and 3[employer] Apps Indication:Type 2 diabetes mellitus Start:13-Dec-2020 Instruction Type:Patient Education Patient Instructions Indication:Type 2 diabetes mellitus Start:15-Sep-2020 Instruction Type:Provider Instructions for Treatment How to Access Health Informa tion Online using Patient Portal and 3rd [employer] Apps Indication:Type 2 diabetes mellitus Start:15-Sep-2020 Instruction Type:Patient Education [facility]; [facility] Work Phone: Instructions* Name Dates Details Patient Instructions Indication:Nonsmoker Start:29-Aug-2022 Instruction Type:Provider Instructions for Treatment How to Access Health Informa tion Online using Patient Portal and [employer]rd [employer] Apps Indication:Nonsmoker Start:29-Aug-2022 Instruction Type:Patient Education Patient Instructions Indication:BMI 40.0-44.9, adult Start:25-Jul-2022 Instruction Type:Provider Instructions for Treatment How to Access Health Informa tion Online using Patient Portal and [employer]rd [employer] Apps Indication:BMI 40.0-44.9, adult Start:25-Jul-2022 Instruction Type:Patient Education Patient Instructions Indication:BMI 45.0-49.9, adult Start:10-Jul-2022 Instruction Type:Provider Instructions for Treatment How to Access Health Informa tion Online using Patient Portal and 3rd [employer] Apps Indication:BMI 45.0-49.9, adult Start:10-Jul-2022 Instruction Type:Patient Education Patient Instructions Indication:Nonsmoker Start:10-Jun-2022 Instruction Type:Provider Instructions for Treatment How to Access Health Informa tion Online using Patient Portal and 3[employer] Apps Indication:Nonsmoker Start:10-Jun-2022 Instruction Type:Patient Education Patient Instructions Indication:Nonsmoker Start:10-May-2022 Instruction Type:Provider Instructions for Treatment How to Access Health Informa tion Online using Patient Portal and 3rd [employer] Apps Indication:Nonsmoker Start:10-May-2022 Instruction Type:Patient Education Patient Instructions Indication:Nonsmoker Start:14-Mar-2022 Instruction Type:Provider Instructions for Treatment How to Access Health Informa tion Online using Patient Portal and 3rd [employer] Apps Indication:Nonsmoker Start:14-Mar-2022 Instruction Type:Patient Education Patient Instructions Indication:Nonsmoker Start:07-Mar-2022 Instruction Type:Provider Instructions for Treatment How to Access Health Informa tion Online using Patient Portal and [employer] Apps Indication:Nonsmoker Start:07-Mar-2022 Instruction Type:Patient Education Patient Instructions Indication:Morbid obesity Start:18-Feb-2022 Instruction Type:Provider Instructions for Treatment How to Access Health Informa tion Online using Patient Portal and 3rd [employer] Apps Indication:Morbid obesity Start:18-Feb-2022 Instruction Type:Patient Education Patient Instructions Indication:Morbid obesity Start:31-Dec-2021 Instruction Type:Provider Instructions for Treatment How to Access Health Informa tion Online using Patient Portal and [employer] Apps Indication:Morbid obesity Start:31-Dec-2021 Instruction Type:Patient Education Patient Instructions Indication:BMI 40.0-44.9, adult Start:17-Oct-2021 Instruction Type:Provider Instructions for Treatment How to Access Health Informa tion Online using Patient Portal and [employer]rd [employer] Apps Indication:BMI 40.0-44.9, adult Start:17-Oct-2021 Instruction Type:Patient Education Patient Instructions Indication:BMI 40.0-44.9, adult Start:10-Oct-2021 Instruction Type:Provider Instructions for Treatment How to Access Health Informa tion Online using Patient Portal and 3rd [employer] Apps Indication:BMI 40.0-44.9, adult Start:10-Oct-2021 Instruction Type:Patient Education Patient Instructions Indication:Cellulitis Start:03-Oct-2021 Instruction Type:Provider Instructions for Treatment Patient Instructions Indication:BMI 40.0-44.9, adult Start:26-Sep-2021 Instruction Type:Provider Instructions for Treatment How to Access Health Informa tion Online using Patient Portal and [employer]rd [employer] Apps Indication:BMI 40.0-44.9, adult Start:26-Sep-2021 Instruction Type:Patient Education Patient Instructions Indication:Nonsmoker Start:10-Aug-2021 Instruction Type:Provider Instructions for Treatment How to Access Health Informa tion Online using Patient Portal and 3rd [employer] Apps Indication:Hypertension Start:10-Aug-2021 Instruction Type:Patient Education Patient Instructions Indication:BMI 40.0-44.9, adult Start:09-Aug-2021 Instruction Type:Provider Instructions for Treatment How to Access Health Informa tion Online using Patient Portal and 3rd [employer] Apps Indication:BMI 40.0-44.9, adult Start:09-Aug-2021 Instruction Type:Patient Education Patient Instructions Indication:Nonsmoker Start:28-May-2021 Instruction Type:Provider Instructions for Treatment How to Access Health Informa tion Online using Patient Portal and [employer] Apps Indication:Nonsmoker Start:28-May-2021 Instruction Type:Patient Education Patient Instructions Indication:BMI 40.0-44.9, adult Start:04-Apr-2021 Instruction Type:Provider Instructions for Treatment How to Access Health Informa tion Online using Patient Portal and 3rd [employer] Apps Indication:BMI 40.0-44.9, adult Start:04-Apr-2021 Instruction Type:Patient Education Patient Instructions Indication:BMI 40.0-44.9, adult Start:20-Mar-2021 Instruction Type:Provider Instructions for Treatment How to Access Health Informa tion Online using Patient Portal and [employer]rd [employer] Apps Indication:BMI 40.0-44.9, adult Start:20-Mar-2021 Instruction Type:Patient Education Patient Instructions Indication:Type 2 diabetes mellitus Start:13-Dec-2020 Instruction Type:Provider Instructions for Treatment How to Access Health Informa tion Online using Patient Portal and [employer]rd [employer] Apps Indication:Type 2 diabetes mellitus Start:13-Dec-2020 Instruction Type:Patient Education Patient Instructions Indication:Type 2 diabetes mellitus Start:15-Sep-2020 Instruction Type:Provider Instructions for Treatment How to Access Health Informa tion Online using Patient Portal and [employer]rd [employer] Apps Indication:Type 2 diabetes mellitus Start:15-Sep-2020 Instruction Type:Patient Education [facility]; [facility] Work Phone: Instructions* Name Dates Details Patient Instructions Indication:Nonsmoker Start:29-Aug-2022 Instruction Type:Provider Instructions for Treatment How to Access Health Informa tion Online using Patient Portal and [employer]rd [employer] Apps Indication:Nonsmoker Start:29-Aug-2022 Instruction Type:Patient Education Patient Instructions Indication:BMI 40.0-44.9, adult Start:25-Jul-2022 Instruction Type:Provider Instructions for Treatment How to Access Health Informa tion Online using Patient Portal and 3[employer] Apps Indication:BMI 40.0-44.9, adult Start:25-Jul-2022 Instruction Type:Patient Education Patient Instructions Indication:BMI 45.0-49.9, adult Start:10-Jul-2022 Instruction Type:Provider Instructions for Treatment How to Access Health Informa tion Online using Patient Portal and 3rd [employer] Apps Indication:BMI 45.0-49.9, adult Start:10-Jul-2022 Instruction Type:Patient Education Patient Instructions Indication:Nonsmoker Start:10-Jun-2022 Instruction Type:Provider Instructions for Treatment How to Access Health Informa tion Online using Patient Portal and 3rd [employer] Apps Indication:Nonsmoker Start:10-Jun-2022 Instruction Type:Patient Education Patient Instructions Indication:Nonsmoker Start:10-May-2022 Instruction Type:Provider Instructions for Treatment How to Access Health Informa tion Online using Patient Portal and 3rd [employer] Apps Indication:Nonsmoker Start:10-May-2022 Instruction Type:Patient Education Patient Instructions Indication:Nonsmoker Start:14-Mar-2022 Instruction Type:Provider Instructions for Treatment How to Access Health Informa tion Online using Patient Portal and 3rd [employer] Apps Indication:Nonsmoker Start:14-Mar-2022 Instruction Type:Patient Education Patient Instructions Indication:Nonsmoker Start:07-Mar-2022 Instruction Type:Provider Instructions for Treatment How to Access Health Informa tion Online using Patient Portal and 3rd Republican Apps Indication:Nonsmoker Start:07-Mar-2022 Instruction Type:Patient Education Patient Instructions Indication:Morbid obesity Start:18-Feb-2022 Instruction Type:Provider Instructions for Treatment How to Access Health Informa tion Online using Patient Portal and 3rd [employer] Apps Indication:Morbid obesity Start:18-Feb-2022 Instruction Type:Patient Education Patient Instructions Indication:Morbid obesity Start:31-Dec-2021 Instruction Type:Provider Instructions for Treatment How to Access Health Informa tion Online using Patient Portal and 3rd [employer] Apps Indication:Morbid obesity Start:31-Dec-2021 Instruction Type:Patient Education Patient Instructions Indication:BMI 40.0-44.9, adult Start:17-Oct-2021 Instruction Type:Provider Instructions for Treatment How to Access Health Informa tion Online using Patient Portal and 3rd [employer] Apps Indication:BMI 40.0-44.9, adult Start:17-Oct-2021 Instruction Type:Patient Education Patient Instructions Indication:BMI 40.0-44.9, adult Start:10-Oct-2021 Instruction Type:Provider Instructions for Treatment How to Access Health Informa tion Online using Patient Portal and 3rd [employer] Apps Indication:BMI 40.0-44.9, adult Start:10-Oct-2021 Instruction Type:Patient Education Patient Instructions Indication:Cellulitis Start:03-Oct-2021 Instruction Type:Provider Instructions for Treatment Patient Instructions Indication:BMI 40.0-44.9, adult Start:26-Sep-2021 Instruction Type:Provider Instructions for Treatment How to Access Health Informa tion Online using Patient Portal and 3rd [employer] Apps Indication:BMI 40.0-44.9, adult Start:26-Sep-2021 Instruction Type:Patient Education Patient Instructions Indication:Nonsmoker Start:10-Aug-2021 Instruction Type:Provider Instructions for Treatment How to Access Health Informa tion Online using Patient Portal and 3rd [employer] Apps Indication:Hypertension Start:10-Aug-2021 Instruction Type:Patient Education Patient Instructions Indication:BMI 40.0-44.9, adult Start:09-Aug-2021 Instruction Type:Provider Instructions for Treatment How to Access Health Informa tion Online using Patient Portal and 3rd [employer] Apps Indication:BMI 40.0-44.9, adult Start:09-Aug-2021 Instruction Type:Patient Education Patient Instructions Indication:Nonsmoker Start:28-May-2021 Instruction Type:Provider Instructions for Treatment How to Access Health Informa tion Online using Patient Portal and 3[employer] Apps Indication:Nonsmoker Start:28-May-2021 Instruction Type:Patient Education Patient Instructions Indication:BMI 40.0-44.9, adult Start:04-Apr-2021 Instruction Type:Provider Instructions for Treatment How to Access Health Informa tion Online using Patient Portal and [employer] Apps Indication:BMI 40.0-44.9, adult Start:04-Apr-2021 Instruction Type:Patient Education Patient Instructions Indication:BMI 40.0-44.9, adult Start:20-Mar-2021 Instruction Type:Provider Instructions for Treatment How to Access Health Informa tion Online using Patient Portal and [employer]rd [employer] Apps Indication:BMI 40.0-44.9, adult Start:20-Mar-2021 Instruction Type:Patient Education Patient Instructions Indication:Type 2 diabetes mellitus Start:13-Dec-2020 Instruction Type:Provider Instructions for Treatment How to Access Health Informa tion Online using Patient Portal and [employer] Apps Indication:Type 2 diabetes mellitus Start:13-Dec-2020 Instruction Type:Patient Education Patient Instructions Indication:Type 2 diabetes mellitus Start:15-Sep-2020 Instruction Type:Provider Instructions for Treatment How to Access Health Informa tion Online using Patient Portal and 3rd [employer] Apps Indication:Type 2 diabetes mellitus Start:15-Sep-2020 Instruction Type:Patient Education [facility]; [facility] Work Phone: Instructions* Name Dates Details Patient Instructions Indication:Nonsmoker Start:31-Jan-2023 Instruction Type:Provider Instructions for Treatment How to Access Health Informa tion Online using Patient Portal and 3rd [employer] Apps Indication:Nonsmoker Start:31-Jan-2023 Instruction Type:Patient Education Patient Instructions Indication:Nonsmoker Start:29-Aug-2022 Instruction Type:Provider Instructions for Treatment How to Access Health Informa tion Online using Patient Portal and 3rd [employer] Apps Indication:Nonsmoker Start:29-Aug-2022 Instruction Type:Patient Education Patient Instructions Indication:BMI 40.0-44.9, adult Start:25-Jul-2022 Instruction Type:Provider Instructions for Treatment How to Access Health Informa tion Online using Patient Portal and [employer] Apps Indication:BMI 40.0-44.9, adult Start:25-Jul-2022 Instruction Type:Patient Education Patient Instructions Indication:BMI 45.0-49.9, adult Start:10-Jul-2022 Instruction Type:Provider Instructions for Treatment How to Access Health Informa tion Online using Patient Portal and [employer] Apps Indication:BMI 45.0-49.9, adult Start:10-Jul-2022 Instruction Type:Patient Education Patient Instructions Indication:Nonsmoker Start:10-Jun-2022 Instruction Type:Provider Instructions for Treatment How to Access Health Informa tion Online using Patient Portal and [employer] Apps Indication:Nonsmoker Start:10-Jun-2022 Instruction Type:Patient Education Patient Instructions Indication:Nonsmoker Start:10-May-2022 Instruction Type:Provider Instructions for Treatment How to Access Health Informa tion Online using Patient Portal and [employer]rd [employer] Apps Indication:Nonsmoker Start:10-May-2022 Instruction Type:Patient Education Patient Instructions Indication:Nonsmoker Start:14-Mar-2022 Instruction Type:Provider Instructions for Treatment How to Access Health Informa tion Online using Patient Portal and [employer]rd [employer] Apps Indication:Nonsmoker Start:14-Mar-2022 Instruction Type:Patient Education Patient Instructions Indication:Nonsmoker Start:07-Mar-2022 Instruction Type:Provider Instructions for Treatment How to Access Health Informa tion Online using Patient Portal and [employer]rd [employer] Apps Indication:Nonsmoker Start:07-Mar-2022 Instruction Type:Patient Education Patient Instructions Indication:Morbid obesity Start:18-Feb-2022 Instruction Type:Provider Instructions for Treatment How to Access Health Informa tion Online using Patient Portal and [employer] Apps Indication:Morbid obesity Start:18-Feb-2022 Instruction Type:Patient Education Patient Instructions Indication:Morbid obesity Start:31-Dec-2021 Instruction Type:Provider Instructions for Treatment How to Access Health Informa tion Online using Patient Portal and [employer] Apps Indication:Morbid obesity Start:31-Dec-2021 Instruction Type:Patient Education Patient Instructions Indication:BMI 40.0-44.9, adult Start:17-Oct-2021 Instruction Type:Provider Instructions for Treatment How to Access Health Informa tion Online using Patient Portal and [employer] Apps Indication:BMI 40.0-44.9, adult Start:17-Oct-2021 Instruction Type:Patient Education Patient Instructions Indication:BMI 40.0-44.9, adult Start:10-Oct-2021 Instruction Type:Provider Instructions for Treatment How to Access Health Informa tion Online using Patient Portal and [employer] Apps Indication:BMI 40.0-44.9, adult Start:10-Oct-2021 Instruction Type:Patient Education Patient Instructions Indication:Cellulitis Start:03-Oct-2021 Instruction Type:Provider Instructions for Treatment Patient Instructions Indication:BMI 40.0-44.9, adult Start:26-Sep-2021 Instruction Type:Provider Instructions for Treatment How to Access Health Informa tion Online using Patient Portal and 3rd [employer] Apps Indication:BMI 40.0-44.9, adult Start:26-Sep-2021 Instruction Type:Patient Education Patient Instructions Indication:Nonsmoker Start:10-Aug-2021 Instruction Type:Provider Instructions for Treatment How to Access Health Informa tion Online using Patient Portal and 3rd [employer] Apps Indication:Hypertension Start:10-Aug-2021 Instruction Type:Patient Education Patient Instructions Indication:BMI 40.0-44.9, adult Start:09-Aug-2021 Instruction Type:Provider Instructions for Treatment How to Access Health Informa tion Online using Patient Portal and 3rd [employer] Apps Indication:BMI 40.0-44.9, adult Start:09-Aug-2021 Instruction Type:Patient Education Patient Instructions Indication:Nonsmoker Start:28-May-2021 Instruction Type:Provider Instructions for Treatment How to Access Health Informa tion Online using Patient Portal and 3rd [employer] Apps Indication:Nonsmoker Start:28-May-2021 Instruction Type:Patient Education Patient Instructions Indication:BMI 40.0-44.9, adult Start:04-Apr-2021 Instruction Type:Provider Instructions for Treatment How to Access Health Informa tion Online using Patient Portal and 3rd [employer] Apps Indication:BMI 40.0-44.9, adult Start:04-Apr-2021 Instruction Type:Patient Education Patient Instructions Indication:BMI 40.0-44.9, adult Start:20-Mar-2021 Instruction Type:Provider Instructions for Treatment How to Access Health Informa tion Online using Patient Portal and [employer] Apps Indication:BMI 40.0-44.9, adult Start:20-Mar-2021 Instruction Type:Patient Education Patient Instructions Indication:Type 2 diabetes mellitus Start:13-Dec-2020 Instruction Type:Provider Instructions for Treatment How to Access Health Informa tion Online using Patient Portal and 3rd Republican Apps Indication:Type 2 diabetes mellitus Start:13-Dec-2020 Instruction Type:Patient Education Patient Instructions Indication:Type 2 diabetes mellitus Start:15-Sep-2020 Instruction Type:Provider Instructions for Treatment How to Access Health Informa tion Online using Patient Portal and [employer] Apps Indication:Type 2 diabetes mellitus Start:15-Sep-2020 Instruction Type:Patient Education [facility]; [facility] Work Phone: Instructions* Name Dates Details Patient Instructions Indication:Nonsmoker Start:31-Jan-2023 Instruction Type:Provider Instructions for Treatment How to Access Health Informa tion Online using Patient Portal and 3rd Republican Apps Indication:Nonsmoker Start:31-Jan-2023 Instruction Type:Patient Education Patient Instructions Indication:Nonsmoker Start:29-Aug-2022 Instruction Type:Provider Instructions for Treatment How to Access Health Informa tion Online using Patient Portal and [employer]rd [employer] Apps Indication:Nonsmoker Start:29-Aug-2022 Instruction Type:Patient Education Patient Instructions Indication:BMI 40.0-44.9, adult Start:25-Jul-2022 Instruction Type:Provider Instructions for Treatment How to Access Health Informa tion Online using Patient Portal and 3rd [employer] Apps Indication:BMI 40.0-44.9, adult Start:25-Jul-2022 Instruction Type:Patient Education Patient Instructions Indication:BMI 45.0-49.9, adult Start:10-Jul-2022 Instruction Type:Provider Instructions for Treatment How to Access Health Informa tion Online using Patient Portal and 3rd Republican Apps Indication:BMI 45.0-49.9, adult Start:10-Jul-2022 Instruction Type:Patient Education Patient Instructions Indication:Nonsmoker Start:10-Jun-2022 Instruction Type:Provider Instructions for Treatment How to Access Health Informa tion Online using Patient Portal and 3rd Republican Apps Indication:Nonsmoker Start:10-Jun-2022 Instruction Type:Patient Education Patient Instructions Indication:Nonsmoker Start:10-May-2022 Instruction Type:Provider Instructions for Treatment How to Access Health Informa tion Online using Patient Portal and 3rd Republican Apps Indication:Nonsmoker Start:10-May-2022 Instruction Type:Patient Education Patient Instructions Indication:Nonsmoker Start:14-Mar-2022 Instruction Type:Provider Instructions for Treatment How to Access Health Informa tion Online using Patient Portal and 3rd Republican Apps Indication:Nonsmoker Start:14-Mar-2022 Instruction Type:Patient Education Patient Instructions Indication:Nonsmoker Start:07-Mar-2022 Instruction Type:Provider Instructions for Treatment How to Access Health Informa tion Online using Patient Portal and 3rd Republican Apps Indication:Nonsmoker Start:07-Mar-2022 Instruction Type:Patient Education Patient Instructions Indication:Morbid obesity Start:18-Feb-2022 Instruction Type:Provider Instructions for Treatment How to Access Health Informa tion Online using Patient Portal and [employer] Apps Indication:Morbid obesity Start:18-Feb-2022 Instruction Type:Patient Education Patient Instructions Indication:Morbid obesity Start:31-Dec-2021 Instruction Type:Provider Instructions for Treatment How to Access Health Informa tion Online using Patient Portal and In[employer] Apps Indication:Morbid obesity Start:31-Dec-2021 Instruction Type:Patient Education Patient Instructions Indication:BMI 40.0-44.9, adult Start:17-Oct-2021 Instruction Type:Provider Instructions for Treatment How to Access Health Informa tion Online using Patient Portal and [employer] Republican Apps Indication:BMI 40.0-44.9, adult Start:17-Oct-2021 Instruction Type:Patient Education Patient Instructions Indication:BMI 40.0-44.9, adult Start:10-Oct-2021 Instruction Type:Provider Instructions for Treatment How to Access Health Informa tion Online using Patient Portal and 3rd Republican Apps Indication:BMI 40.0-44.9, adult Start:10-Oct-2021 Instruction Type:Patient Education Patient Instructions Indication:Cellulitis Start:03-Oct-2021 Instruction Type:Provider Instructions for Treatment Patient Instructions Indication:BMI 40.0-44.9, adult Start:26-Sep-2021 Instruction Type:Provider Instructions for Treatment How to Access Health Informa tion Online using Patient Portal and 3rd [employer] Apps Indication:BMI 40.0-44.9, adult Start:26-Sep-2021 Instruction Type:Patient Education Patient Instructions Indication:Nonsmoker Start:10-Aug-2021 Instruction Type:Provider Instructions for Treatment How to Access Health Informa tion Online using Patient Portal and [employer]rd [employer] Apps Indication:Hypertension Start:10-Aug-2021 Instruction Type:Patient Education Patient Instructions Indication:BMI 40.0-44.9, adult Start:09-Aug-2021 Instruction Type:Provider Instructions for Treatment How to Access Health Informa tion Online using Patient Portal and 3rd [employer] Apps Indication:BMI 40.0-44.9, adult Start:09-Aug-2021 Instruction Type:Patient Education Patient Instructions Indication:Nonsmoker Start:28-May-2021 Instruction Type:Provider Instructions for Treatment How to Access Health Informa tion Online using Patient Portal and 3rd Republican Apps Indication:Nonsmoker Start:28-May-2021 Instruction Type:Patient Education Patient Instructions Indication:BMI 40.0-44.9, adult Start:04-Apr-2021 Instruction Type:Provider Instructions for Treatment How to Access Health Informa tion Online using Patient Portal and [employer] Apps Indication:BMI 40.0-44.9, adult Start:04-Apr-2021 Instruction Type:Patient Education Patient Instructions Indication:BMI 40.0-44.9, adult Start:20-Mar-2021 Instruction Type:Provider Instructions for Treatment How to Access Health Informa tion Online using Patient Portal and [employer] Apps Indication:BMI 40.0-44.9, adult Start:20-Mar-2021 Instruction Type:Patient Education Patient Instructions Indication:Type 2 diabetes mellitus Start:13-Dec-2020 Instruction Type:Provider Instructions for Treatment How to Access Health Informa tion Online using Patient Portal and 3rd Republican Apps Indication:Type 2 diabetes mellitus Start:13-Dec-2020 Instruction Type:Patient Education Patient Instructions Indication:Type 2 diabetes mellitus Start:15-Sep-2020 Instruction Type:Provider Instructions for Treatment How to Access Health Informa tion Online using Patient Portal and 3rd [employer] Apps Indication:Type 2 diabetes mellitus Start:15-Sep-2020 Instruction Type:Patient Education [facility] Work Phone: reason for referral (narrative)No reason for referral information availableWZanes[facility] Work Phone: Summary Purpose Family History No Family History Records FoundUnknown Family Member Name Dates Details Brother 1 Comments:colon cancer, [place], D M, lung cancer, Pancrease cancer Status:Active Father Comments:Dm, heart problems Status:Active Mother Comments:pace maker, HTN, Status:Active Sister 1 Comments:DM Status:Active Unknown Family Member Name Dates Details Brother 1 Comments:colon cancer[place], D M, lung cancer, Pancrease cancer Status:Active Father Comments:Dm, heart problems Status:Active Mother Comments:pace maker, HTN, Status:Active Sister 1 Comments:DM Status:Active Unknown Family Member Name Dates Details Brother 1 Comments:colon cancer[place], D M, lung cancer, Pancrease cancer Status:Active Father Comments:Dm, heart problems Status:Active Mother Comments:pace maker, HTN, Status:Active Sister 1 Comments:DM Status:Active Unknown Family Member Name Dates Details Brother 1 Comments:colon cancer[place], D M, lung cancer, Pancrease cancer Status:Active Father Comments:Dm, heart problems Status:Active Mother Comments:pace maker, HTN, Status:Active Sister 1 Comments:DM Status:Active Unknown Family Member Name Dates Details Brother 1 Comments:colon cancer[place], D M, lung cancer, Pancrease cancer Status:Active Father Comments:Dm, heart problems Status:Active Mother Comments:pace maker, HTN, Status:Active Sister 1 Comments:DM Status:Active Unknown Family Member Name Dates Details Brother 1 Comments:colon cancer[place], D M, lung cancer, Pancrease cancer Status:Active Father Comments:Dm, heart problems Status:Active Mother Comments:pace maker, HTN, Status:Active Sister 1 Comments:DM Status:Active Unknown Family Member Name Dates Details Brother 1 Comments:colon cancer[place], D M, lung cancer, Pancrease cancer Status:Active Father Comments:Dm, heart problems Status:Active Mother Comments:pace maker, HTN, Status:Active Sister 1 Comments:DM Status:Active Unknown Family Member Name Dates Details Brother 1 Comments:colon cancer[place], D M, lung cancer, Pancrease cancer Status:Active Father Comments:Dm, heart problems Status:Active Mother Comments:pace maker, HTN, Status:Active Sister 1 Comments:DM Status:Active Unknown Family Member Name Dates Details Brother 1 Comments:colon cancer[place], D M, lung cancer, Pancrease cancer Status:Active Father Comments:Dm, heart problems Status:Active Mother Comments:pace maker, HTN, Status:Active Sister 1 Comments:DM Status:Active Unknown Family Member Name Dates Details Brother 1 Comments:colon cancer[place], D M, lung cancer, Pancrease cancer Status:Active Father Comments:Dm, heart problems Status:Active Mother Comments:pace maker, HTN, Status:Active Sister 1 Comments:DM Status:Active Unknown Family Member Name Dates Details Brother 1 Comments:colon cancer[place], D M, lung cancer, Pancrease cancer Status:Active Father Comments:Dm, heart problems Status:Active Mother Comments:pace maker, HTN, Status:Active Sister 1 Comments:DM Status:Active Unknown Family Member Name Dates Details Brother 1 Comments:colon cancer[place], D M, lung cancer, Pancrease cancer Status:Active Father Comments:Dm, heart problems Status:Active Mother Comments:pace maker, HTN, Status:Active Sister 1 Comments:DM Status:Active Unknown Family Member Name Dates Details Brother 1 Comments:colon cancer[place], D M, lung cancer, Pancrease cancer Status:Active Father Comments:Dm, heart problems Status:Active Mother Comments:pace maker, HTN, Status:Active Sister 1 Comments:DM Status:Active Relationship Condition Age at Onset Recorded Date/T ousmane brother Diabetes mellitus Unknown Cardiac disease Unknown Hypertension Unknown Malignant neoplasm of colon Unknown mother Hypertension Unknown Unknown Family Member Name Dates Details Brother 1 Comments:colon cancer[place], D M, lung cancer, Pancrease cancer Status:Active Father Comments:Dm, heart problems Status:Active Mother Comments:pace maker, HTN, Status:Active Sister 1 Comments:DM Status:Active Unknown Family Member Name Dates Details Brother 1 Comments:colon cancer[place], D M, lung cancer, Pancrease cancer Status:Active Father Comments:Dm, heart problems Status:Active Mother Comments:pace maker, HTN, Status:Active Sister 1 Comments:DM Status:Active Unknown Family Member Name Dates Details Brother 1 Comments:colon cancer[place], D M, lung cancer, Pancrease cancer Status:Active Father Comments:Dm, heart problems Status:Active Mother Comments:pace maker, HTN, Status:Active Sister 1 Comments:DM Status:Active Unknown Family Member Name Dates Details Brother 1 Comments:colon cancer[place], D M, lung cancer, Pancrease cancer Status:Active Father Comments:Dm, heart problems Status:Active Mother Comments:pace maker, HTN, Status:Active Sister 1 Comments:DM Status:Active Unknown Family Member Name Dates Details Brother 1 Comments:colon cancer[place], D M, lung cancer, Pancrease cancer Status:Active Father Comments:Dm, heart problems Status:Active Mother Comments:pace maker, HTN, Status:Active Sister 1 Comments:DM Status:Active Unknown Family Member Name Dates Details Brother 1 Comments:colon cancer[place], D M, lung cancer, Pancrease cancer Status:Active Father Comments:Dm, heart problems Status:Active Mother Comments:pace maker, HTN, Status:Active Sister 1 Comments:DM Status:Active Relationship Condition Age at Onset Recorded Date/T ousmane Not Specified Asthma Unknown brother Diabetes mellitus Unknown Cardiac disease Unknown Hypertension Unknown Malignant neoplasm of lung Unknown mother Hypertension Unknown brother Malignant neoplasm of colon Unknown brother Malignant neoplasm Unknown brother Sleep apnea Unknown Myocardial infarction Unknown Unknown Family Member Name Dates Details Brother 1 Comments:colon cancer[place], D M, lung cancer, Pancrease cancer Status:Active Father Comments:Dm, heart problems Status:Active Mother Comments:pace maker, HTN, Status:Active Sister 1 Comments:DM Status:Active Unknown Family Member Name Dates Details Brother 1 Comments:colon cancer[place], D M, lung cancer, Pancrease cancer Status:Active Father Comments:Dm, heart problems Status:Active Mother Comments:pace maker, HTN, Status:Active Sister 1 Comments:DM Status:Active Relationship Condition Age at Onset Recorded Date/T ousmane Not Specified Arthritis Unknown Asthma Unknown brother Diabetes mellitus Unknown Cardiac disease Unknown Hypertension Unknown Malignant neoplasm of lung Unknown mother Hypertension Unknown brother Malignant neoplasm of colon Unknown brother Malignant neoplasm Unknown brother Sleep apnea Unknown Myocardial infarction Unknown Unknown Family Member Name Dates Details Brother 1 Comments:colon cancer[place], D M, lung cancer, Pancrease cancer Status:Active Father Comments:Dm, heart problems Status:Active Mother Comments:pace maker, HTN, Status:Active Sister 1 Comments:DM Status:Active Unknown Family Member Name Dates Details Brother 1 Comments:colon cancer[place], D M, lung cancer, Pancrease cancer Status:Active Father Comments:Dm, heart problems Status:Active Mother Comments:pace maker, HTN, Status:Active Sister 1 Comments:DM Status:Active Unknown Family Member Name Dates Details Brother 1 Comments:colon cancer[place], D M, lung cancer, Pancrease cancer Status:Active Father Comments:Dm, heart problems Status:Active Mother Comments:pace maker, HTN, Status:Active Sister 1 Comments:DM Status:Active Unknown Family Member Name Dates Details Brother 1 Comments:colon cancer[place], D M, lung cancer, Pancrease cancer Status:Active Father Comments:Dm, heart problems Status:Active Mother Comments:pace maker, HTN, Status:Active Sister 1 Comments:DM Status:Active Unknown Family Member Name Dates Details Brother 1 Comments:colon cancer[place], D M, lung cancer, Pancrease cancer Status:Active Father Comments:Dm, heart problems Status:Active Mother Comments:pace maker, HTN, Status:Active Sister 1 Comments:DM Status:Active Unknown Family Member Name Dates Details Brother 1 Comments:colon cancer[place], D M, lung cancer, Pancrease cancer Status:Active Father Comments:Dm, heart problems Status:Active Mother Comments:pace maker, HTN, Status:Active Sister 1 Comments:DM Status:Active Unknown Family Member Name Dates Details Brother 1 Comments:colon cancer, [place], D M, lung cancer, Pancrease cancer Status:Active Father Comments:Dm, heart problems Status:Active Mother Comments:pace maker, HTN, Status:Active Sister 1 Comments:DM Status:Active Unknown Family Member Name Dates Details Brother 1 Comments:colon cancer, [place], D M, lung cancer, Pancrease cancer Status:Active Father Comments:Dm, heart problems Status:Active Mother Comments:pace maker, HTN, Status:Active Sister 1 Comments:DM Status:Active Relationship Condition Age at Onset Recorded Date/T ousmane Not Specified Arthritis Unknown Asthma Unknown brother Malignant neoplasm of pancreas Unknown Diabetes mellitus Unknown Cardiac disease Unknown Malignant neoplasm of lung Unknown Hypertension Unknown Malignant neoplasm of colon Unknown mother Hypertension Unknown brother Malignant neoplasm Unknown brother Sleep apnea Unknown Myocardial infarction Unknown Unknown Family Member Name Dates Details Brother 1 Comments:colon cancer, [place], D M, lung cancer, Pancrease cancer Status:Active Father Comments:Dm, heart problems Status:Active Mother Comments:pace maker, HTN, Status:Active Sister 1 Comments:DM Status:Active Unknown Family Member Name Dates Details Brother 1 Comments:colon cancer, [place], D M, lung cancer, Pancrease cancer Status:Active Father Comments:Dm, heart problems Status:Active Mother Comments:pace maker, HTN, Status:Active Sister 1 Comments:DM Status:Active Unknown Family Member Name Dates Details Brother 1 Comments:colon cancer, [place], D M, lung cancer, Pancrease cancer Status:Active Father Comments:Dm, heart problems Status:Active Mother Comments:pace maker, HTN, Status:Active Sister 1 Comments:DM Status:Active Unknown Family Member Name Dates Details Brother 1 Comments:colon cancer, [place], D M, lung cancer, Pancrease cancer Status:Active Father Comments:Dm, heart problems Status:Active Mother Comments:pace maker, HTN, Status:Active Sister 1 Comments:DM Status:Active Unknown Family Member Name Dates Details Brother 1 Comments:colon cancer, [place], D M, lung cancer, Pancrease cancer Status:Active Father Comments:Dm, heart problems Status:Active Mother Comments:pace maker, HTN, Status:Active Sister 1 Comments:DM Status:Active Unknown Family Member Name Dates Details Brother 1 Comments:colon cancer, [place], D M, lung cancer, Pancrease cancer Status:Active Father Comments:Dm, heart problems Status:Active Mother Comments:pace maker, HTN, Status:Active Sister 1 Comments:DM Status:Active Unknown Family Member Name Dates Details Brother 1 Comments:colon cancer, [place], D M, lung cancer, Pancrease cancer Status:Active Father Comments:Dm, heart problems Status:Active Mother Comments:pace maker, HTN, Status:Active Sister 1 Comments:DM Status:Active Unknown Family Member Name Dates Details Brother 1 Comments:colon cancer[place], D M, lung cancer, Pancrease cancer Status:Active Father Comments:Dm, heart problems Status:Active Mother Comments:pace maker, HTN, Status:Active Sister 1 Comments:DM Status:Active Unknown Family Member Name Dates Details Brother 1 Comments:colon cancer, [place], D M, lung cancer, Pancrease cancer Status:Active Father Comments:Dm, heart problems Status:Active Mother Comments:pace maker, HTN, Status:Active Sister 1 Comments:DM Status:Active Unknown Family Member Name Dates Details Brother 1 Comments:colon cancer, [place], D M, lung cancer, Pancrease cancer Status:Active Father Comments:Dm, heart problems Status:Active Mother Comments:pace maker, HTN, Status:Active Sister 1 Comments:DM Status:Active Unknown Family Member Name Dates Details Brother 1 Comments:colon cancer[place], D M, lung cancer, Pancrease cancer Status:Active Father Comments:Dm, heart problems Status:Active Mother Comments:pace maker, HTN, Status:Active Sister 1 Comments:DM Status:Active Unknown Family Member Name Dates Details Brother 1 Comments:colon cancer[place], D M, lung cancer, Pancrease cancer Status:Active Father Comments:Dm, heart problems Status:Active Mother Comments:pace maker, HTN, Status:Active Sister 1 Comments:DM Status:Active Unknown Family Member Name Dates Details Brother 1 Comments:colon cancer, [place], D M, lung cancer, Pancrease cancer Status:Active Father Comments:Dm, heart problems Status:Active Mother Comments:pace maker, HTN, Status:Active Sister 1 Comments:DM Status:Active Unknown Family Member Name Dates Details Brother 1 Comments:colon cancer, [place], D M, lung cancer, Pancrease cancer Status:Active Father Comments:Dm, heart problems Status:Active Mother Comments:pace maker, HTN, Status:Active Sister 1 Comments:DM Status:Active Unknown Family Member Name Dates Details Brother 1 Comments:colon cancer[place], D M, lung cancer, Pancrease cancer Status:Active Father Comments:Dm, heart problems Status:Active Mother Comments:pace maker, HTN, Status:Active Sister 1 Comments:DM Status:Active Unknown Family Member Name Dates Details Brother 1 Comments:colon cancer, [place], D M, lung cancer, Pancrease cancer Status:Active Father Comments:Dm, heart problems Status:Active Mother Comments:pace maker, HTN, Status:Active Sister 1 Comments:DM Status:Active Unknown Family Member Name Dates Details Brother 1 Comments:colon cancer[place], D M, lung cancer, Pancrease cancer Status:Active Father Comments:Dm, heart problems Status:Active Mother Comments:pace maker, HTN, Status:Active Sister 1 Comments:DM Status:Active Unknown Family Member Name Dates Details Brother 1 Comments:colon cancer[place], D M, lung cancer, Pancrease cancer Status:Active Father Comments:Dm, heart problems Status:Active Mother Comments:pace maker, HTN, Status:Active Sister 1 Comments:DM Status:Active Unknown Family Member Name Dates Details Brother 1 Comments:colon cancer, [place], D M, lung cancer, Pancrease cancer Status:Active Father Comments:Dm, heart problems Status:Active Mother Comments:pace maker, HTN, Status:Active Sister 1 Comments:DM Status:Active Unknown Family Member Name Dates Details Brother 1 Comments:colon cancer, [place], D M, lung cancer, Pancrease cancer Status:Active Father Comments:Dm, heart problems Status:Active Mother Comments:pace maker, HTN, Status:Active Sister 1 Comments:DM Status:Active Unknown Family Member Name Dates Details Brother 1 Comments:colon cancer, [place], D M, lung cancer, Pancrease cancer Status:Active Father Comments:Dm, heart problems Status:Active Mother Comments:pace maker, HTN, Status:Active Sister 1 Comments:DM Status:Active Unknown Family Member Name Dates Details Brother 1 Comments:colon cancer, [place], D M, lung cancer, Pancrease cancer Status:Active Father Comments:Dm, heart problems Status:Active Mother Comments:pace maker, HTN, Status:Active Sister 1 Comments:DM Status:Active Unknown Family Member Name Dates Details Brother 1 Comments:colon cancer, [place], D M, lung cancer, Pancrease cancer Status:Active Father Comments:Dm, heart problems Status:Active Mother Comments:pace maker, HTN, Status:Active Sister 1 Comments:DM Status:Active Unknown Family Member Name Dates Details Brother 1 Comments:colon cancer, [place], D M, lung cancer, Pancrease cancer Status:Active Father Comments:Dm, heart problems Status:Active Mother Comments:pace maker, HTN, Status:Active Sister 1 Comments:DM Status:Active Unknown Family Member Name Dates Details Brother 1 Comments:colon cancer, [place], D M, lung cancer, Pancrease cancer Status:Active Father Comments:Dm, heart problems Status:Active Mother Comments:pace maker, HTN, Status:Active Sister 1 Comments:DM Status:Active Unknown Family Member Name Dates Details Brother 1 Comments:colon cancer, [place], D M, lung cancer, Pancrease cancer Status:Active Father Comments:Dm, heart problems Status:Active Mother Comments:pace maker, HTN, Status:Active Sister 1 Comments:DM Status:Active Advance Directives No Advanced Directives Records Found Advance Directive Response Recorded Date/ Time Advance Directives Yes August 27, 2017 8:50pm Living Will No May 12 12:29pm Power of Chemical Compounder Helper No May 12, 2020 12:29pm Advance Directive Response Recorded Date/ Time Name of Medical Power of Chemical Compounder Helper JUAN NGUYEN AND KATTY MIRELES April 22, 2022 2:12pm Advance Directives Yes August 27, 2017 8:50pm Living Will Yes April 22 2:12pm Power of Chemical Compounder Helper Yes April 22 2:12pm Advance Directive Response Recorded Date/ Time Name of Medical Power of Chemical Compounder Helper POA MANI PAUL AND KATTY CHI April 22, 2022 2:12pm Name of Medical Power of Chemical Compounder Helper DAUGHTER May 14, 2022 10:08pm Advance Directives Yes August 27, 2017 8:50pm Living Will Yes May 14 10:08pm Power of Chemical Compounder Helper Yes May 14, 2022 10:08pm Advance Directive Response Recorded Date/ Time Name of Medical Power of Chemical Compounder Helper POA MANI PAUL AND KATTY CHI April 22, 2022 2:12pm Name of Medical Power of Chemical Compounder Helper paul & sanam Chi May 15, 2022 2:38am Name of Medical Power of Chemical Compounder Helper Katty Chi May 19, 2022 11:08pm Advance Directives Yes August 27, 2017 8:50pm Living Will Yes May 19 11:08pm Power of Chemical Compounder Helper Yes May 19, 2022 11:08pm Advance Directive Response Recorded Date/ Time Name of Medical Power of Chemical Compounder Helper KYLIEA MANI SOEN AND KATTY CHI April 22, 2022 2:12pm Name of Medical Power of Chemical Compounder Helper paul & sanam Fatimaim May 15, 2022 2:38am Name of Medical Power of Chemical Compounder Helper Katty Chi and Paul Mireles- Sons May 20, 2022 1:33am Advance Directives Yes August 27, 2017 8:50pm Living Will Yes May 20 1:33am Power of Chemical Compounder Helper Yes May 20, 2022 1:33am Advance Directive Response Recorded Date/ Time Name of Medical Power of Chemical Compounder Helper POA MANI PAUL AND KATTY CHI April 22, 2022 1:12pm Name of Medical Power of Chemical Compounder Helper paul & sanam Chi May 15, 2022 1:38am Name of Medical Power of Chemical Compounder Helper Katty Chi and Paul Chi- Sons May 20, 2022 12:33am Name of Medical Power of Chemical Compounder Helper Sanam and Paul Chi May 24, 2022 1:26pm Advance Directives Yes August 27, 2017 7:50pm Living Will Yes May 24 1:26pm Power of Chemical Compounder Helper Yes May 24, 2022 1:26pm Advance Directive Response Recorded Date/ Time Name of Medical Power of Chemical Compounder Helper JUAN NGUYEN AND KATTY CHI April 22, 2022 1:12pm Name of Medical Power of Chemical Compounder Helper paul & sanam Chi May 15, 2022 1:38am Name of Medical Power of Chemical Compounder Helper Katty Chi and [employer] May 20, 2022 12:33am Name of Medical Power of Chemical Compounder Helper Sanam and Paul Chi May 24, 2022 1:26pm Advance Directives Yes May 3:55pm Living Will Yes June 11 3:55pm Power of Chemical Compounder Helper Yes June 11, 2022 3:55pm Advance Directive Response Recorded Date/ Time Name of Medical Power of Chemical Compounder Helper JUAN SOEN AND KATTY CHI April 22, 2022 1:12pm Name of Medical Power of Chemical Compounder Helper paul & sanam Chi May 15, 2022 1:38am Name of Medical Power of Chemical Compounder Helper Katty Chi and Paul Chi- Mani May 20, 2022 12:33am Name of Medical Power of Chemical Compounder Helper Sanam and Gipsy Chi May 24, 2022 1:26pm Advance Directives Yes May 3:55pm Living Will No July 02 022 8:33am Power of Chemical Compounder Helper No July 02, 2022 8:33am Advance Directive Response Recorded Date/ Time Name of Medical Power of Chemical Compounder Helper JUAN NGUYEN AND KATTY CHI April 22, 2022 1:12pm Name of Medical Power of Chemical Compounder Helper paul & sanam Chi May 15, 2022 1:38am Name of Medical Power of Chemical Compounder Helper Katty Chi and Paul [employer] May 20, 2022 12:33am Name of Medical Power of Chemical Compounder Helper Sanam and Gipsy Chi May 24, 2022 1:26pm Name of Medical Power of Chemical Compounder Helper paul chi July 02, 2022 12:59pm Name of Medical Power of Chemical Compounder Helper PAUL CHI AND SANAM CHI- MANI July 13, 2022 6:53pm Advance Directives Yes May 3:55pm Living Will Yes July 13, 2 022 6:53pm Power of Chemical Compounder Helper Yes July 13, 2022 6:53pm Advance Directive Response Recorded Date/ Time Name of Medical Power of Chemical Compounder Helper JUAN NGUYEN AND KATTY MIRELES April 22, 2022 1:12pm Name of Medical Power of Chemical Compounder Helper paul & sanam Mireles May 15, 2022 1:38am Name of Medical Power of Chemical Compounder Helper Katty Mireles and Paul Singleton May 20, 2022 12:33am Name of Medical Power of Chemical Compounder Helper Sanam and Paul Mireles May 24, 2022 1:26pm Name of Medical Power of Chemical Compounder Helper paul mireles July 02, 2022 12:59pm Name of Medical Power of Chemical Compounder Helper PAUL MIRELES AND SANAM MIRELES- MANI July 14, 2022 1:44am Advance Directives Yes May 3:55pm Living Will Yes July 14, 022 1:44am Power of Chemical Compounder Helper Yes July 14, 2022 1:44am Advance Directive Response Recorded Date/ Time Name of Medical Power of Chemical Compounder Helper paul mireles July 02, 2022 1:59pm Name of Medical Power of Chemical Compounder Helper PAUL MIRELES AND SANAM SINGLETON July 14, 2022 2:44am Advance Directives Yes May 4:55pm Living Will Yes July 14, 2 022 2:44am Power of Chemical Compounder Helper Yes July 14, 2022 2:44am Advance Directive Response Recorded Date/ Time Advance Directives Yes May 4:55pm Living Will Yes July 14, 2 022 2:44am Power of Chemical Compounder Helper Yes July 14, 2022 2:44am Advance Directive Response Recorded Date/ Time Advance Directives Yes May 3:55pm Living Will Yes July 14, 2 022 1:44am Power of Chemical Compounder Helper Yes July 14, 2022 1:44am Advance Directive Response Recorded Date/ Time Name of Medical Power of Chemical Compounder Helper PAUL MIRELES AND SANAM MIRELES September 10, 2023 4:25pm Advance Directives Yes May 3:55pm Living Will Yes September 10, 2 024 4:25pm Power of Chemical Compounder Helper Yes September 10, 2023 4:25pm Advance Directive Response Recorded Date/ Time Name of Medical Power of Chemical Compounder Helper PAUL MIRELES AND SANAM MIRELES September 10, 2023 5:25pm Advance Directives Yes May 4:55pm Living Will Yes September 10, 2 024 5:25pm Power of Chemical Compounder Helper Yes September 10, 2023 5:25pm Advance Directive Response Recorded Date/ Time Name of Medical Power of Chemical Compounder Helper Katty Mireles and Paul Singleton May 20, 2022 12:33am Name of Medical Power of Chemical Compounder Helper Sanam and Paul Mireles May 24, 2022 1:26pm Name of Medical Power of Chemical Compounder Helper paul mireles July 02, 2022 12:59pm Name of Medical Power of Chemical Compounder Helper PAUL MIRLEES AND SANAM SINGLETON July 14, 2022 1:44am Advance Directives Yes May 3:55pm Living Will Yes July 14, 022 1:44am Power of Chemical Compounder Helper Yes July 14, 2022 1:44am Advance Directive Response Recorded Date/ Time Living Will No March 12 7:24pm Do you have a Healthcare Power of Chemical Compounder Helper? No March 12, 2024 7:24pm Advance Directives Yes May 4:55pm Advance Directive Response Recorded Date/ Time Advance Directives Yes December 24 9:29am Living Will No March 12 7:24pm Do you have a Healthcare Power of Chemical Compounder Helper? No March 12, 2024 7:24pm Instructions Name Dates Details Patient Instructions Indication:Type 2 diabetes mellitus Start:15-Sep-2020 Instruction Type:Provider Instructions for Treatment How to Access Health Informa tion Online using Patient Portal and [employer]rd [employer] Apps Indication:Type 2 diabetes mellitus Start:15-Sep-2020 Instruction Type:Patient Education Name Dates Details Patient Instructions Indication:Type 2 diabetes mellitus Start:15-Sep-2020 Instruction Type:Provider Instructions for Treatment How to Access Health Informa tion Online using Patient Portal and [employer] Apps Indication:Type 2 diabetes mellitus Start:15-Sep-2020 Instruction Type:Patient Education Chief Complaint and Reason for Visit Chief Complaint hypertension HYPERTENSION; CONF 10/18 Chief Complaint Sleep problems Reason for Visit BMI 40.0-44.9, adult ABDI (obstructive sleep apnea) Chief Complaint Sleep problems ABDOMINAL PAIN Reason for Visit BMI 40.0-44.9, adult ABDI (obstructive sleep apnea) Chief Complaint ABDOMINAL PAIN VENTRAL HERNIA E ORDERS Reason for Visit Recurrent incisional hernia with incarceration Right flank pain Chief Complaint ABDOMINAL PAIN VENTRAL HERNIA E ORDERS SCREENING ABNORMAL MAMMOGRAM Reason for Visit Recurrent incisional hernia with incarceration Right flank pain Chief Complaint ABDOMINAL PAIN VENTRAL HERNIA E ORDERS SCREENING ABNORMAL MAMMOGRAM ABN BREAST US RIGHT R BREAST BIRADS 4 Reason for Visit Recurrent incisional hernia with incarceration Right flank pain Abnormal ultrasound of breast Chief Complaint ABDOMINAL PAIN VENTRAL HERNIA E ORDERS SCREENING ABNORMAL MAMMOGRAM ABN BREAST US RIGHT R BREAST BIRADS 4 discuss breast path ASYMPTOMATIC MENOPAUSAL STATE RT LUMPECTOMY BLUE DYE RADIO TRACER US GUIDED NDL RT LUMPECTOMY BLUE DYE RADIO TRACER US GUIDED NDL Reason for Visit Recurrent incisional hernia with incarceration Right flank pain Abnormal ultrasound of breast Breast cancer, right breast Chief Complaint ABDOMINAL PAIN VENTRAL HERNIA E ORDERS SCREENING ABNORMAL MAMMOGRAM ABN BREAST US RIGHT R BREAST BIRADS 4 discuss breast path ASYMPTOMATIC MENOPAUSAL STATE RT LUMPECTOMY BLUE DYE RADIO TRACER US GUIDED NDL RT LUMPECTOMY BLUE DYE RADIO TRACER US GUIDED NDL ABD PAIN Post op Reason for Visit Recurrent incisional hernia with incarceration Right flank pain Abnormal ultrasound of breast Breast cancer, right breast Seroma, postoperative Chief Complaint ABDOMINAL PAIN VENTRAL HERNIA E ORDERS SCREENING ABNORMAL MAMMOGRAM ABN BREAST US RIGHT R BREAST BIRADS 4 discuss breast path ASYMPTOMATIC MENOPAUSAL STATE ASYMPTOMATIC MENOPAUSAL STATE RT LUMPECTOMY BLUE DYE RADIO TRACER US GUIDED NDL RT LUMPECTOMY BLUE DYE RADIO TRACER US GUIDED NDL ABD PAIN Post op Breast pain fever fever fever Reason for Visit Recurrent incisional hernia with incarceration Right flank pain Abnormal ultrasound of breast Breast cancer, right breast Seroma, postoperative Seroma, postoperative Abnormal urinalysis Cellulitis of breast Hypertensive urgency Leukocytosis Seroma, postoperative Chief Complaint ABDOMINAL PAIN VENTRAL HERNIA E ORDERS SCREENING ABNORMAL MAMMOGRAM ABN BREAST US RIGHT R BREAST BIRADS 4 discuss breast path ASYMPTOMATIC MENOPAUSAL STATE ASYMPTOMATIC MENOPAUSAL STATE RT LUMPECTOMY BLUE DYE RADIO TRACER US GUIDED NDL RT LUMPECTOMY BLUE DYE RADIO TRACER US GUIDED NDL ABD PAIN Post op Breast pain fever ABCESS fever ABCESS ABCESS ABCESS ABCESS ABCESS ABCESS CHF, HTN, HYPOXIA Reason for Visit Recurrent incisional hernia with incarceration Right flank pain Abnormal ultrasound of breast Breast cancer, right breast Seroma, postoperative Seroma, postoperative Abnormal urinalysis Breast abscess Cellulitis of breast Hypertensive urgency Infected seroma, postoperative Leukocytosis Seroma, postoperative CHF (congestive heart failure) Hypoxemia Hypertension Chief Complaint ABDOMINAL PAIN VENTRAL HERNIA E ORDERS SCREENING ABNORMAL MAMMOGRAM ABN BREAST US RIGHT R BREAST BIRADS 4 discuss breast path ASYMPTOMATIC MENOPAUSAL STATE ASYMPTOMATIC MENOPAUSAL STATE RT LUMPECTOMY BLUE DYE RADIO TRACER US GUIDED NDL RT LUMPECTOMY BLUE DYE RADIO TRACER US GUIDED NDL ABD PAIN Post op Breast pain fever ABCESS fever ABCESS ABCESS ABCESS ABCESS ABCESS ABCESS CHF Congestive heart failure Congestive heart failure Congestive heart failure Congestive heart failure Congestive heart failure Congestive heart failure Congestive heart failure Congestive heart failure Reason for Visit Recurrent incisional hernia with incarceration Right flank pain Abnormal ultrasound of breast Breast cancer, right breast Seroma, postoperative Seroma, postoperative Abnormal urinalysis Cellulitis of breast Hypertensive urgency Leukocytosis Seroma, postoperative Abnormal cardiac enzyme level Acute respiratory failure with hypoxia Breast cancer, right breast CHF (congestive heart failure) HLD (hyperlipidemia) Hypertensive urgency Hypoxemia Hypertension Stage 3a chronic kidney disease (CKD) Cellulitis of breast Seroma, postoperative Chief Complaint ABDOMINAL PAIN VENTRAL HERNIA E ORDERS SCREENING ABNORMAL MAMMOGRAM ABN BREAST US RIGHT R BREAST BIRADS 4 discuss breast path ASYMPTOMATIC MENOPAUSAL STATE ASYMPTOMATIC MENOPAUSAL STATE RT LUMPECTOMY BLUE DYE RADIO TRACER US GUIDED NDL RT LUMPECTOMY BLUE DYE RADIO TRACER US GUIDED NDL ABD PAIN Post op Breast pain fever ABCESS fever ABCESS ABCESS ABCESS ABCESS ABCESS ABCESS CHF Congestive heart failure Congestive heart failure Congestive heart failure Congestive heart failure Congestive heart failure Congestive heart failure Congestive heart failure Congestive heart failure CHF Congestive heart failure Congestive heart failure Congestive heart failure 2 wk fu/CHF HYPERTENSION Reason for Visit Recurrent incisional hernia with incarceration Right flank pain Abnormal ultrasound of breast Seroma, postoperative Seroma, postoperative Abnormal urinalysis Cellulitis of breast Hypertensive urgency Leukocytosis Seroma, postoperative HLD (hyperlipidemia) Cellulitis of breast Hypertensive urgency Hypoxemia Seroma, postoperative Acute diastolic congestive heart failure Acute kidney injury Acute respiratory failure with hypoxia Breast abscess Debility Diabetes mellitus Glaucoma Pain around toenail, left foot Pain around toenail, right foot Tinea unguium Chronic kidney disease, stage 3a Hypertension Diastolic congestive heart failure Hypertension Chief Complaint ABDOMINAL PAIN VENTRAL HERNIA E ORDERS SCREENING ABNORMAL MAMMOGRAM ABN BREAST US RIGHT R BREAST BIRADS 4 discuss breast path ASYMPTOMATIC MENOPAUSAL STATE ASYMPTOMATIC MENOPAUSAL STATE RT LUMPECTOMY BLUE DYE RADIO TRACER US GUIDED NDL RT LUMPECTOMY BLUE DYE RADIO TRACER US GUIDED NDL ABD PAIN Post op Breast pain fever ABCESS fever ABCESS ABCESS ABCESS ABCESS ABCESS ABCESS CHF Congestive heart failure Congestive heart failure Congestive heart failure Congestive heart failure Congestive heart failure Congestive heart failure Congestive heart failure Congestive heart failure CHF Congestive heart failure Congestive heart failure Congestive heart failure 2 wk fu/CHF HYPERTENSION LABSPEC WOUND CHECK NEW-BREAST CA Reason for Visit Recurrent incisional hernia with incarceration Right flank pain Breast cancer, right breast Seroma, postoperative Seroma, postoperative Abnormal urinalysis Cellulitis of breast Hypertensive urgency Leukocytosis Seroma, postoperative Breast cancer, right breast HLD (hyperlipidemia) Cellulitis of breast Hypertensive urgency Hypoxemia Seroma, postoperative Debility Diabetes mellitus Glaucoma Chronic kidney disease, stage 3a Hypertension Acute diastolic congestive heart failure Acute kidney injury Acute respiratory failure with hypoxia Breast abscess Pain around toenail, left foot Pain around toenail, right foot Tinea unguium Diastolic congestive heart failure Hypertension Breast abscess Breast cancer, right breast Left adrenal mass Chief Complaint ABDOMINAL PAIN VENTRAL HERNIA E ORDERS SCREENING ABNORMAL MAMMOGRAM ABN BREAST US RIGHT R BREAST BIRADS 4 discuss breast path ASYMPTOMATIC MENOPAUSAL STATE ASYMPTOMATIC MENOPAUSAL STATE RT LUMPECTOMY BLUE DYE RADIO TRACER US GUIDED NDL RT LUMPECTOMY BLUE DYE RADIO TRACER US GUIDED NDL ABD PAIN Post op Breast pain fever ABCESS fever ABCESS ABCESS ABCESS ABCESS ABCESS ABCESS CHF Congestive heart failure Congestive heart failure Congestive heart failure Congestive heart failure Congestive heart failure Congestive heart failure Congestive heart failure Congestive heart failure CHF Congestive heart failure Congestive heart failure Congestive heart failure 2 wk fu/CHF HYPERTENSION LABSPEC WOUND CHECK NEW-BREAST CA CHEMO ED Reason for Visit Recurrent incisional hernia with incarceration Right flank pain Breast cancer, right breast Seroma, postoperative Seroma, postoperative Abnormal urinalysis Cellulitis of breast Hypertensive urgency Leukocytosis Seroma, postoperative Breast cancer, right breast HLD (hyperlipidemia) Cellulitis of breast Hypertensive urgency Hypoxemia Seroma, postoperative Debility Diabetes mellitus Glaucoma Chronic kidney disease, stage 3a Hypertension Acute diastolic congestive heart failure Acute kidney injury Acute respiratory failure with hypoxia Breast abscess Pain around toenail, left foot Pain around toenail, right foot Tinea unguium Diastolic congestive heart failure ABDI (obstructive sleep apnea) Bilateral carotid artery stenosis Chronic kidney disease, stage 3a Hypertension Breast abscess Breast cancer, right breast Left adrenal mass Breast cancer, right breast Encounter for education Left adrenal mass Chief Complaint VENTRAL HERNIA E ORDERS SCREENING ABNORMAL MAMMOGRAM ABN BREAST US RIGHT R BREAST BIRADS 4 discuss breast path ASYMPTOMATIC MENOPAUSAL STATE ASYMPTOMATIC MENOPAUSAL STATE RT LUMPECTOMY BLUE DYE RADIO TRACER US GUIDED NDL RT LUMPECTOMY BLUE DYE RADIO TRACER US GUIDED NDL ABD PAIN Post op Breast pain fever ABCESS fever ABCESS ABCESS ABCESS ABCESS ABCESS ABCESS CHF Congestive heart failure Congestive heart failure Congestive heart failure Congestive heart failure Congestive heart failure Congestive heart failure Congestive heart failure Congestive heart failure CHF Congestive heart failure Congestive heart failure Congestive heart failure 2 wk fu/CHF HYPERTENSION LABSPEC WOUND CHECK NEW-BREAST CA CHEMO ED HYPOXIA Reason for Visit Recurrent incisional hernia with incarceration Right flank pain Breast cancer, right breast Seroma, postoperative Seroma, postoperative Abnormal urinalysis Cellulitis of breast Hypertensive urgency Leukocytosis Seroma, postoperative Breast cancer, right breast HLD (hyperlipidemia) Cellulitis of breast Hypertensive urgency Hypoxemia Seroma, postoperative Debility Diabetes mellitus Glaucoma Chronic kidney disease, stage 3a Hypertension Acute diastolic congestive heart failure Acute kidney injury Acute respiratory failure with hypoxia Breast abscess Pain around toenail, left foot Pain around toenail, right foot Tinea unguium Diastolic congestive heart failure ABDI (obstructive sleep apnea) Bilateral carotid artery stenosis Chronic kidney disease, stage 3a Hypertension Breast abscess Breast cancer, right breast Left adrenal mass Breast cancer, right breast Encounter for education Left adrenal mass Hypoxia Labile blood pressure Nausea Shakiness Chief Complaint VENTRAL HERNIA E ORDERS SCREENING ABNORMAL MAMMOGRAM ABN BREAST US RIGHT R BREAST BIRADS 4 discuss breast path ASYMPTOMATIC MENOPAUSAL STATE ASYMPTOMATIC MENOPAUSAL STATE RT LUMPECTOMY BLUE DYE RADIO TRACER US GUIDED NDL RT LUMPECTOMY BLUE DYE RADIO TRACER US GUIDED NDL ABD PAIN Post op Breast pain fever ABCESS fever ABCESS ABCESS ABCESS ABCESS ABCESS ABCESS CHF Congestive heart failure Congestive heart failure Congestive heart failure Congestive heart failure Congestive heart failure Congestive heart failure Congestive heart failure Congestive heart failure CHF Congestive heart failure Congestive heart failure Congestive heart failure 2 wk fu/CHF HYPERTENSION LABSPEC WOUND CHECK NEW-BREAST CA CHEMO ED HYPOXIA HYPOXIA HYPOXIA HYPOXIA HYPOXIA HYPOXIA HYPOXIA HYPOXIA s/p hosp 12-18 FTT ADULT Reason for Visit Recurrent incisional hernia with incarceration Right flank pain Breast cancer, right breast Seroma, postoperative Seroma, postoperative Abnormal urinalysis Cellulitis of breast Hypertensive urgency Leukocytosis Seroma, postoperative Breast cancer, right breast HLD (hyperlipidemia) Cellulitis of breast Hypertensive urgency Hypoxemia Seroma, postoperative Debility Diabetes mellitus Glaucoma Chronic kidney disease, stage 3a Hypertension Acute diastolic congestive heart failure Acute kidney injury Acute respiratory failure with hypoxia Breast abscess Pain around toenail, left foot Pain around toenail, right foot Tinea unguium Diastolic congestive heart failure ABDI (obstructive sleep apnea) Bilateral carotid artery stenosis Chronic kidney disease, stage 3a Hypertension Breast abscess Breast cancer, right breast Left adrenal mass Breast cancer, right breast Encounter for education Left adrenal mass MALATHI (acute kidney injury) Bradycardia Diastolic congestive heart failure HLD (hyperlipidemia) Hypoxia Labile blood pressure Nausea Shakiness Uncontrolled hypertension Chronic kidney disease, stage 3a Hypertension Bradycardia Diastolic congestive heart failure ABDI (obstructive sleep apnea) Bilateral carotid artery stenosis Chronic kidney disease, stage 3a Hypertension Debility Hypercalcemia Left adrenal mass Prerenal azotemia Chronic kidney disease, stage 3a Chief Complaint SCREENING ABNORMAL MAMMOGRAM ABN BREAST US RIGHT R BREAST BIRADS 4 discuss breast path ASYMPTOMATIC MENOPAUSAL STATE ASYMPTOMATIC MENOPAUSAL STATE RT LUMPECTOMY BLUE DYE RADIO TRACER US GUIDED NDL RT LUMPECTOMY BLUE DYE RADIO TRACER US GUIDED NDL ABD PAIN Post op Breast pain fever ABCESS fever ABCESS ABCESS ABCESS ABCESS ABCESS ABCESS CHF Congestive heart failure Congestive heart failure Congestive heart failure Congestive heart failure Congestive heart failure Congestive heart failure Congestive heart failure Congestive heart failure CHF Congestive heart failure Congestive heart failure Congestive heart failure 2 wk fu/CHF HYPERTENSION LABSPEC WOUND CHECK NEW-BREAST CA CHEMO ED HYPOXIA HYPOXIA HYPOXIA HYPOXIA HYPOXIA HYPOXIA HYPOXIA HYPOXIA s/p hosp 12-18 FTT ADULT FTT ADULT FTT ADULT FTT ADULT FTT ADULT FTT ADULT Reason for Visit Breast cancer, right breast Seroma, postoperative Seroma, postoperative Abnormal urinalysis Cellulitis of breast Hypertensive urgency Leukocytosis Seroma, postoperative Breast cancer, right breast Cellulitis of breast Hypertensive urgency Hypoxemia Seroma, postoperative Debility Diabetes mellitus Glaucoma Acute diastolic congestive heart failure Acute kidney injury Acute respiratory failure with hypoxia Breast abscess Pain around toenail, left foot Pain around toenail, right foot Tinea unguium ABDI (obstructive sleep apnea) Bilateral carotid artery stenosis Breast abscess Breast cancer, right breast Left adrenal mass Breast cancer, right breast Encounter for education Left adrenal mass MALATHI (acute kidney injury) Bradycardia Nausea ABDI (obstructive sleep apnea) Bilateral carotid artery stenosis Bradycardia MALATHI (acute kidney injury) Debility FTT (failure to thrive) in adult Hypercalcemia Labile blood pressure Left adrenal mass Nocturnal hypoxia Prerenal azotemia Chief Complaint discuss breast path ASYMPTOMATIC MENOPAUSAL STATE ASYMPTOMATIC MENOPAUSAL STATE RT LUMPECTOMY BLUE DYE RADIO TRACER US GUIDED NDL RT LUMPECTOMY BLUE DYE RADIO TRACER US GUIDED NDL ABD PAIN Post op Breast pain fever ABCESS fever ABCESS ABCESS ABCESS ABCESS ABCESS ABCESS CHF Congestive heart failure Congestive heart failure Congestive heart failure Congestive heart failure Congestive heart failure Congestive heart failure Congestive heart failure Congestive heart failure CHF Congestive heart failure Congestive heart failure Congestive heart failure 2 wk fu/CHF HYPERTENSION LABSPEC WOUND CHECK NEW-BREAST CA CHEMO ED HYPOXIA HYPOXIA HYPOXIA HYPOXIA HYPOXIA HYPOXIA HYPOXIA HYPOXIA s/p hosp 12-18 FTT ADULT FTT ADULT FTT ADULT FTT ADULT FTT ADULT FTT ADULT ABDI BRADYCARDIA [address] Reason for Visit Breast cancer, right breast Seroma, postoperative Seroma, postoperative Abnormal urinalysis Cellulitis of breast Hypertensive urgency Leukocytosis Seroma, postoperative Breast cancer, right breast Cellulitis of breast Hypertensive urgency Hypoxemia Seroma, postoperative Debility Diabetes mellitus Glaucoma Acute diastolic congestive heart failure Acute kidney injury Acute respiratory failure with hypoxia Breast abscess Pain around toenail, left foot Pain around toenail, right foot Tinea unguium ABDI (obstructive sleep apnea) Bilateral carotid artery stenosis Breast abscess Breast cancer, right breast Left adrenal mass Breast cancer, right breast Encounter for education Left adrenal mass MALATHI (acute kidney injury) Bradycardia Nausea ABDI (obstructive sleep apnea) Bilateral carotid artery stenosis Bradycardia Debility FTT (failure to thrive) in adult Labile blood pressure Nocturnal hypoxia MALATHI (acute kidney injury) Hypercalcemia Prerenal azotemia BMI 40.0-44.9, adult ABDI (obstructive sleep apnea) Chief Complaint ASYMPTOMATIC M[place]OP[place] STATE ASYMPTOMATIC MENOPAUSAL STATE RT LUMPECTOMY BLUE DYE RADIO TRACER US GUIDED NDL RT LUMPECTOMY BLUE DYE RADIO TRACER US GUIDED NDL ABD PAIN Post op Breast pain fever ABCESS fever ABCESS ABCESS ABCESS ABCESS ABCESS ABCESS CHF Congestive heart failure Congestive heart failure Congestive heart failure Congestive heart failure Congestive heart failure Congestive heart failure Congestive heart failure Congestive heart failure CHF Congestive heart failure Congestive heart failure Congestive heart failure 2 wk fu/CHF HYPERTENSION LABSPEC WOUND CHECK NEW-BREAST CA CHEMO ED HYPOXIA HYPOXIA HYPOXIA HYPOXIA HYPOXIA HYPOXIA HYPOXIA HYPOXIA s/p hosp 12-18 FTT ADULT FTT ADULT FTT ADULT FTT ADULT FTT ADULT FTT ADULT ABDI BRADYCARDIA [address] Reason for Visit Seroma, postoperativ e Seroma, postoperative Abnormal urinalysis Cellulitis of breast Hypertensive urgency Leukocytosis Seroma, postoperative Breast cancer, right breast Cellulitis of breast Hypertensive urgency Hypoxemia Seroma, postoperative Debility Diabetes mellitus Glaucoma Acute diastolic congestive heart failure Acute kidney injury Acute respiratory failure with hypoxia Breast abscess Pain around toenail, left foot Pain around toenail, right foot Tinea unguium ABDI (obstructive sleep apnea) Bilateral carotid artery stenosis Breast abscess Breast cancer, right breast Left adrenal mass Breast cancer, right breast Encounter for education Left adrenal mass MALATHI (acute kidney injury) Bradycardia Nausea ABDI (obstructive sleep apnea) Bilateral carotid artery stenosis Bradycardia Debility FTT (failure to thrive) in adult Labile blood pressure Nocturnal hypoxia MALATHI (acute kidney injury) Hypercalcemia Prerenal azotemia BMI 40.0-44.9, adult ABDI (obstructive sleep apnea) Chief Complaint ASYMPTOMATIC [place] STATE ASYMPTOMATIC MENOPAUSAL STATE RT LUMPECTOMY BLUE DYE RADIO TRACER US GUIDED NDL RT LUMPECTOMY BLUE DYE RADIO TRACER US GUIDED NDL ABD PAIN Post op Breast pain fever ABCESS fever ABCESS ABCESS ABCESS ABCESS ABCESS ABCESS CHF Congestive heart failure Congestive heart failure Congestive heart failure Congestive heart failure Congestive heart failure Congestive heart failure Congestive heart failure Congestive heart failure CHF Congestive heart failure Congestive heart failure Congestive heart failure 2 wk fu/CHF HYPERTENSION LABSPEC WOUND CHECK NEW-BREAST CA CHEMO ED HYPOXIA AM EKG HYPOXIA HYPOXIA HYPOXIA HYPOXIA HYPOXIA HYPOXIA HYPOXIA s/p hosp 12-18 FTT ADULT FTT ADULT FTT ADULT EKG FTT ADULT FTT ADULT FTT ADULT ABDI BRADYCARDIA [address] Reason for Visit Seroma, postoperativ e Seroma, postoperative Abnormal urinalysis Cellulitis of breast Hypertensive urgency Leukocytosis Seroma, postoperative Breast cancer, right breast Cellulitis of breast Hypertensive urgency Hypoxemia Seroma, postoperative Debility Diabetes mellitus Glaucoma Acute diastolic congestive heart failure Acute kidney injury Acute respiratory failure with hypoxia Breast abscess Pain around toenail, left foot Pain around toenail, right foot Tinea unguium ABDI (obstructive sleep apnea) Bilateral carotid artery stenosis Breast abscess Breast cancer, right breast Left adrenal mass Breast cancer, right breast Encounter for education Left adrenal mass MALATHI (acute kidney injury) Bradycardia Nausea ABDI (obstructive sleep apnea) Bilateral carotid artery stenosis Bradycardia Debility FTT (failure to thrive) in adult Labile blood pressure Nocturnal hypoxia MALATHI (acute kidney injury) Hypercalcemia Prerenal azotemia BMI 40.0-44.9, adult ABDI (obstructive sleep apnea) Chief Complaint HYPOXIA AM EKG HYPOXIA HYPOXIA HYPOXIA HYPOXIA HYPOXIA HYPOXIA HYPOXIA s/p hosp 12-18 FTT ADULT FTT ADULT FTT ADULT EKG FTT ADULT FTT ADULT FTT ADULT ABDI BRADYCARDIA 2 ORDERING COLLIN Adrenal 3 M FU CPAP S/O- MONTHLY LABS- ADD 2 ADDT ODERS 09/12/22 S/O- MONTHLY LABS Reason for Visit MALATHI (acute kidney in jury) Bradycardia Nausea ABDI (obstructive sleep apnea) Bilateral carotid artery stenosis Bradycardia Debility FTT (failure to thrive) in adult Labile blood pressure Nocturnal hypoxia MALATHI (acute kidney injury) Hypercalcemia Prerenal azotemia BMI 40.0-44.9, adult ABDI (obstructive sleep apnea) Left adrenal mass ABDI (obstructive sleep apnea) Bilateral carotid artery stenosis BMI 40.0-44.9, adult ABDI (obstructive sleep apnea) Chief Complaint BRADYCARDIA 2 ORDERING COLLIN Adrenal 3 M FU CPAP S/O- MONTHLY LABS- ADD 2 ADDT ODERS 09/12/22 S/O- MONTHLY LABS S/O- MONTHLY LABS - COPY PCP Reason for Visit Left adrenal mass ABDI (obstructive sleep apnea) Bilateral carotid artery stenosis BMI 40.0-44.9, adult ABDI (obstructive sleep apnea) Chief Complaint S/O- MONTHLY LABS S/O- MONTHLY LABS - COPY PCP 3 M FU S/O- MONTHLY LABS - COPY PCP Reason for Visit BMI 40.0-44.9, adult ABDI (obstructive sleep apnea) Chief Complaint S/O- MONTHLY LABS - COPY PCP 3 M FU S/O- MONTHLY LABS - COPY PCP S/O- MONTHLY LABS - COPY PCP Reason for Visit BMI 40.0-44.9, adult ABDI (obstructive sleep apnea) Chief Complaint 3 M FU S/O- MONTHLY LABS - COPY PCP S/O- MONTHLY LABS - COPY PCP 6 m fu PREV PFM PT Occlusion&stenosis of bilateral carotid arteriod Amb Documentation Reason for Visit (HFpEF) heart failur e with preserved ejection fraction Bilateral carotid artery stenosis Diabetes mellitus Hypertension Chief Complaint S/O- MONTHLY LABS - COPY PCP 6 m fu PREV PFM PT Occlusion&stenosis of bilateral carotid arteriod Amb Documentation Consult-CAROTID Occlusion and stenosis of left carotid artery Reason for Visit (HFpEF) heart failur e with preserved ejection fraction Bilateral carotid artery stenosis Diabetes mellitus Hypertension Left carotid artery stenosis Chief Complaint Consult-CAROTID Occlusion and stenosis of left carotid artery 6 M FU Reason for Visit Left carotid artery stenosis Obesity ABDI (obstructive sleep apnea) Chief Complaint 6 M FU Occlusion and stenosis of bilateral carotid arteri Reason for Visit Obesity ABDI (obstructive sleep apnea) Chief Complaint 6 M FU Occlusion and stenosis of bilateral carotid arteri hypertension Reason for Visit Obesity ABDI (obstructive sleep apnea) Chief Complaint 6 M FU Occlusion and stenosis of bilateral carotid arteri hypertension ADRENAL MASS Reason for Visit Obesity ABDI (obstructive sleep apnea) Chief Complaint Occlusion and stenos is of bilateral carotid arteri hypertension ADRENAL MASS 6 M FU Reason for Visit (HFpEF) heart failur e with preserved ejection fraction Bilateral carotid artery stenosis Bradycardia Diabetes mellitus Hypertension Chief Complaint Occlusion and stenos is of bilateral carotid arteri hypertension ADRENAL MASS 6 M FU BRADYCARDIA ABDI, CHF Reason for Visit (HFpEF) heart failur e with preserved ejection fraction Bilateral carotid artery stenosis Bradycardia Diabetes mellitus Hypertension Chief Complaint CHF Congestive heart failure Congestive heart failure Congestive heart failure Congestive heart failure Congestive heart failure CHF Congestive heart failure Congestive heart failure Congestive heart failure 2 wk fu/CHF HYPERTENSION LABSPEC WOUND CHECK NEW-BREAST CA CHEMO ED HYPOXIA AM EKG HYPOXIA HYPOXIA HYPOXIA HYPOXIA HYPOXIA HYPOXIA HYPOXIA s/p hosp 12-18 FTT ADULT FTT ADULT FTT ADULT EKG FTT ADULT FTT ADULT FTT ADULT ABDI BRADYCARDIA 2 ORDERING COLLIN Adrenal 3 M FU CPAP S/O- MONTHLY LABS- ADD 2 ADDT ODERS 09/12/22 Reason for Visit Breast cancer, right breast Cellulitis of breast Hypertensive urgency Hypoxemia Seroma, postoperative Debility Diabetes mellitus Glaucoma Acute diastolic congestive heart failure Acute kidney injury Acute respiratory failure with hypoxia Breast abscess Pain around toenail, left foot Pain around toenail, right foot Tinea unguium ABDI (obstructive sleep apnea) Bilateral carotid artery stenosis Breast abscess Breast cancer, right breast Left adrenal mass Breast cancer, right breast Encounter for education Left adrenal mass MALATHI (acute kidney injury) Bradycardia Nausea ABDI (obstructive sleep apnea) Bilateral carotid artery stenosis Bradycardia Debility FTT (failure to thrive) in adult Labile blood pressure Nocturnal hypoxia MALATHI (acute kidney injury) Hypercalcemia Prerenal azotemia BMI 40.0-44.9, adult ABDI (obstructive sleep apnea) Left adrenal mass ABDI (obstructive sleep apnea) Bilateral carotid artery stenosis BMI 40.0-44.9, adult ABDI (obstructive sleep apnea) Chief Complaint Admit Date BACK PAIN RX HERE July 01, 2024 10:30am Discuss Scheduling CTA August 09 3:33pm 3 M FU August 17, 2024 1 2:48pm SCREENING/ADRENEAL MASS October 07, 2024 1:37pm 2DRS/ 2 ORDERS October 12, 2024 8:4 0am Reason for Visit Admit Date Left carotid artery stenosis July 3:33pm HLD (hyperlipidemia) August 17, 2024 12:48pm (HFpEF) heart failure with preserved eje ction fraction August 17, 2024 12:48pm Hypertension August 17, 2024 1 2:48pm Left carotid artery stenosis July 12:48pm ABDI (obstructive sleep apnea) August 172024 12:48pm Chief Complaint Admit Date Discuss Scheduling CTA August 09 3:33pm 3 M FU August 17, 2024 1 2:48pm SCREENING/ADRENEAL MASS October 07, 2024 1:37pm 2DRS/ 2 ORDERS October 12, 2024 8:4 0am L IAC STENOSIS November 09, 2024 12: 51pm Chief Complaint Admit Date SCREENING/ADRENEAL MASS October 07, 2024 1:37pm 2DRS/ 2 ORDERS October 12, 2024 8:4 0am L IAC STENOSIS November 09, 2024 12: 51pm EORDERS December 06, 2024 9:14a m 4 M FU December 16, 2024 1:29p m Reason for Visit Admit Date Chest pain December 16, 2024 1:29p m Edema December 16, 2024 1:29p m HLD (hyperlipidemia) December 16, 2024 1:29 pm (HFpEF) heart failure with preserved eje ction fraction December 16, 2024 1:29pm Hypertension December 16, 2024 1:29p m Left carotid artery stenosis December 16, 2 025 1:29pm ABDI (obstructive sleep apnea) December 16, 2024 1:29pm Chief Complaint Admit Date SCREENING/ADRENEAL MASS October 07, 2024 1:37pm 2DRS/ 2 ORDERS October 12, 2024 8:4 0am L IAC STENOSIS November 09, 2024 12: 51pm EORDERS December 06, 2024 9:14a m 4 M FU December 16, 2024 1:29p m XRAY December 24, 2024 9:30a m Chief Complaint Admit Date SCREENING/ADRENEAL MASS October 07, 2024 1:37pm 2DRS/ 2 ORDERS October 12, 2024 8:4 0am L IAC STENOSIS November 09, 2024 12: 51pm EORDERS December 06, 2024 9:14a m 4 M FU December 16, 2024 1:29p m XRAY December 24, 2024 9:30a m CONCERN FOR CELLULITIS January 01, 2025 1 2:12pm Additional Source Comments INFORMATION SOURCE (unrecogn ized section and content) DATE CREATED AUTHOR 01/27/2018 [facility] DATE CREATED AUTHOR AUTHOR'S ORGANIZ ATION 02/25/2019 [facility] DATE CREATED AUTHOR AUTHOR'S ORGANIZ ATION 08/17/2021 [facility] DATE CREATED AUTHOR AUTHOR'S ORGANIZ ATION 08/24/2022 [facility] DATE CREATED AUTHOR AUTHOR'S ORGANIZ ATION 01/08/2025 [facility] Goals (unrecognized section and content) Goals may be documented in a n alternate sectionGoals may be documented in an alternate sectionGoals may be documented in an alternate sectionGoals may be documented in an alternate sectionGoals may be documented in an alternate sectionGoals may be documented in an alternate sectionGoals may be documented in an alternate sectionGoals may be documented in an alternate sectionGoals may be documented in an alternate sectionGoals may be documented in an alternate sectionGoals may be documented in an alternate sectionGoals may be documented in an alternate sectionGoals may be documented in an alternate sectionGoals may be documented in an alternate sectionGoals may be documented in an alternate sectionGoals may be documented in an alternate sectionGoals may be documented in an alternate sectionGoals may be documented in an alternate sectionGoals may be documented in an alternate sectionGoals may be documented in an alternate sectionGoals may be documented in an alternate sectionGoals may be documented in an alternate sectionGoals may be documented in an alternate sectionGoals may be documented in an alternate sectionGoals may be documented in an alternate sectionGoals may be documented in an alternate sectionGoals may be documented in an alternate sectionGoals may be documented in an alternate section Care Teams (unrecognized sec tion and content) Team Status: Active Member Role Status Dates Dr. Philip Kumar MD Family Provider Active Dr. Martina Lal , DO Primary Care Provider Active Team Status: Inactive Member Role Status Dates Dr. Martina Lal , DO Primary Care Provider, Referr ing Provider Active Dr. Michael Michel MD Attending Provider Active Team Status: Active Member Role Status Dates Dr. Martina Lal , DO Primary Care Provider Active Dr. Michael Michel MD Attending Provid er, Referring Provider, Other Provider Active Team Status: Inactive Member Role Status Dates Dr. Martina Lal , DO Primary Care Provider, Referr ing Provider Active Dr. Socorro Ivan MD Attending Provider Active Team Status: Active Member Role Status Dates Dr. Martina Lal , DO Primary Care Provider Active Dr. Angely Carrizales MD Attending Provider Active Dr. Michael Michel MD Referring Provider Active Team Status: Inactive Member Role Status Dates Dr. Martina Lal , DO Primary Care Provider, Referr ing Provider Active Adeola WASHINGTON PA-C Attending Provider Active Team Status: Active Member Role Status Dates Dr. Martina Lal , DO Primary Care Provider Active Dr. Venkat Burnham DO Emergency Provider Active Dr. Felice Waller MD Active Dr. Michael Michel MD Attending Provider Active Team Status: Active Member Role Status Dates Dr. Martina Lal DO Primary Care Provider Active Dr. Venkat Burnham DO Emergency Provider Active Dr. Willy Booth DO Admit Provider, At tending Provider, Other Provider Active Team Status: Active Member Role Status Dates Dr. Martina Lal DO Primary Care Provider Active Dr. Venkat Burnham DO Emergency Provider Active Dr. Willy Booth DO Admit Provider, Other Provider A ctive Dr. Loan Luu , DO Other Provider Active Dr. Felice Waller MD Other Provider Active Dr. Michael Michel MD Attending Provider Active Team Status: Active Member Role Status Dates Dr. Martina Lal , DO Primary Care Provider Active Dr. Venkat Burnham DO Emergency Provider Active Dr. Willy Booth DO Admit Provider, Other Provider A ctive Dr. Loan Luu , DO Attending Provider, Other Provide r Active Dr. Felice Waller MD Other Provider Active Team Status: Active Member Role Status Dates Dr. Martina Lal DO Primary Care Provider Active Dr. Venkat Burnham , DO Emergency Provider Active Dr. Willy Booth DO Admit Provider, Other Provider A ctive Dr. Felice Waller MD Other Provider Active Dr. Meng Martinez MD Attending Provider, Other Provi rosa isela Active Dr. Loan Luu , DO Other Provider Active Dr. Michael Baires MD Other Provider Active Team Status: Active Member Role Status Dates Dr. Martina Lal , DO Primary Care Provider Active Dr. Venkat Burnham , DO Emergency Provider Active Dr. Willy Booth , DO Admit Provider, Other Provider A ctive Dr. Felice Waller MD Other Provider Active Dr. Meng Martinez MD Other Provider Active Dr. Loan Luu , DO Other Provider Active Dr. Michael Baires MD Other Provider Active Dr. Odalys Mccullough MD Attending Provider Active Team Status: Active Member Role Status Dates Dr. Martina Lal , DO Primary Care Provider Active Dr. Lisa Mariscal , DO Emergency Provider Active Dr. Willy Booth , DO Admit Provider, At tending Provider, Other Provider Active Team Status: Active Member Role Status Dates Dr. Martina Lal , DO Primary Care Provider Active Dr. Brent Kelley MD Attending Provider Active Team Status: Active Member Role Status Dates Dr. Martina Lal , DO Primary Care Provider Active Dr. Lisa Mariscal , DO Emergency Provider Active Dr. Willy Booth , DO Admit Provider, Other Provider A ctive Dr. Meng Martinez MD Attending Provider, Other Provi rosa isela Active Dr. Dena Kwok MD Other Provider Active Dr. Stew Cruz MD Other Provider Active Team Status: Active Member Role Status Dates Dr. Martina Lal , DO Primary Care Provider Active Dr. Lisa Mariscal , DO Emergency Provider Active Dr. Willy Booth , DO Admit Provider, Other Provider A ctive Dr. Meng Martinez MD Other Provider Active Dr. Dena Kwok MD Other Provider Active Dr. Stew Cruz MD Attending Provider, Other Prov ider Active Team Status: Active Member Role Status Dates Dr. Martina Lal , DO Primary Care Provider Active Dr. Lisa Mariscal , DO Emergency Provider Active Dr. Willy Booth , DO Admit Provider, Other Provider A ctive Dr. Meng Martinze MD Other Provider Active Dr. Dena Kwok MD Other Provider Active Dr. Stew Cruz MD Other Provider Active Adeola WASHINGTON, PA-C Attending Provider Active Team Status: Inactive Member Role Status Dates Dr. Martina Lal , DO Primary Care Provider, Referr ing Provider Active Rama Camara 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, 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-C Attending Provider Active Team Status: Active Member Role Status Dates Dr. Martina Lal , DO Primary Care Provider Active Dr. Lance Arevalo MD Admit Provider, Other Provider A ctive Adeola Monsivais PA, PA-C Attending Provider Active Team Status: Active Member Role Status Dates Dr. Martina Lal , DO Primary Care Provider Active Dr. Lance Arevalo MD Admit Provider, Other Provider A ctive Dr. Jose Maria Hudson MD Other Provider Active Dr. Buzz Duran DPM Other Provider Active Adeola WASHINGTON, PA-C Attending Provider Active Team Status: Active Member Role Status Dates Dr. Martina Lal , DO Primary Care Provider, Referr ing Provider Active Dr. Willy Trimble MD Attending Provider Active Team Status: Inactive Member Role Status Dates Dr. Martina Lal , DO Primary Care Provider, Referr ing Provider Active Susan Mayberry 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, 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-C Attending Provider Active Team Status: Active Member Role Status Dates Dr. Martina Lal , DO Primary Care Provider Active Zeferino Kingsley MD Emergency Provider Active Dr. Joie Gamez MD Admit Provider, Attending Provider, Other Provider Active Team Status: Active Member Role Status Dates Dr. Martina Lal , DO Primary Care Provider Active Zeferino Kingsley MD Emergency Provider Active Dr. Joie Gamez MD Admit Provider, Attending Provider, Other Provider Active Dr. Patricia Valenzuela MD Other Provider Active Dr. Jose Maria Hudson MD Other Provider Active Team Status: Active Member Role Status Dates Dr. Martina Lal , DO Primary Care Provider Active Zeferino Kingsley MD Emergency Provider Active Dr. Joie Gamez MD Admit Provider, Other Provider Active Dr. Patricia Valenzuela MD Attending Provider, Othe r Provider Active Dr. Jose Maria Hudson MD Other Provider Active Team Status: Active Member Role Status Dates Dr. Martina Lal , DO Primary Care Provider Active Zeferino Kingsley MD Emergency Provider Active Dr. Joie Gamez MD Admit Provider, Other Provider Active Dr. Patricia Valenzuela MD Other Provider Active Dr. Jose Maria Hudson MD Other Provider Active Dr. Stew Cruz MD Attending Provider Active Team Status: Inactive Member Role Status Dates Dr. Martina Lal , DO Primary Care Provider, Referr ing Provider Active Zelda Mcdaniels 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, 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-C Attending Provider Active Team Status: Active Member Role Status Dates Dr. Martina Lal DO Primary Care Provider Active Dr. Anthony Davila MD Emergency Provider Active Dr. Wendy Mishra MD Admit Provider, Attending Provider, Other Provider Active Team Status: Active Member Role Status Dates Dr. Martina Lal DO Primary Care Provider Active Dr. Anthony Davila MD Emergency Provider Active Dr. Wendy Mishra MD Admit Provider, Other Provider Active Dr. Ryder De Los Santos MD Attending Provider, Other Provider Active Team Status: Active Member Role Status Dates Dr. Martina Lal DO Primary Care Provider Active Dr. Anthony Davila MD Emergency Provider Active Dr. Wendy Mishra MD Admit Provider, Other Provider Active Dr. Loan Luu , DO Attending Provider, Other Provide r Active Dr. Ryder De Los Santos MD Other Provider Active Team Status: Inactive Member Role Status Dates Dr. Martina Lal DO Primary Care Provider Active Dr. Michael Michel MD Attending Provider, Referring Provider Active Team Status: Inactive Member Role Status Dates Dr. Martina Lal , DO Primary Care Provider, Attend ing Provider Active Team Status: Inactive Member Role Status Dates Dr. Martina Lal , DO Primary Care Pr ovider, Attending Provider, Referring Provider Active Team Status: Inactive Member Role Status Dates Dr. Martina Lal DO Primary Care Provider Active Dr. Venkat Burnham , DO Emergency Provider Active Dr. Willy Booth , DO Admit Provider, Other Provider A ctive Dr. Felice Waller MD Other Provider Active Dr. Meng Martinez MD Attending Provider Active Dr. Loan Luu , DO Other Provider Active Dr. Michael Baires MD Other Provider Active Team Status: Inactive Member Role Status Dates Dr. Martina Lal DO Primary Care Provider Active Dr. Lisa Mariscal , DO Emergency Provider Active Dr. Willy Booth , DO Admit Provider, Other Provider A ctive Dr. Meng Martinez MD Attending Provider Active Dr. Dena Kwok MD Other Provider Active Dr. Stew Cruz MD Other Provider Active Team Status: Inactive Member Role Status Dates Dr. Martina Lal , DO Primary Care Provider Active Dr. Lance Arevalo MD Admit Provider, Attending Provid er Active Dr. Jose Maria Hudson MD Other Provider Active Dr. Buzz Duran DPM Other Provider Active Team Status: Inactive Member Role Status Dates Dr. Martina Lal , DO Primary Care Pr ovider, Attending Provider, Referring Provider Active Dr. Dena Kwok MD Other Provider Active Team Status: Active Member Role Status Dates Dr. Martina Lal , DO Primary Care Provider, Attend ing Provider Active Dr. Abbi Junior MD Other Provider Active Team Status: Inactive Member Role Status Dates Dr. Martina Lal DO Primary Care Provider Active Zeferino Kingsley MD Emergency Provider Active Dr. Joie Gamez MD Admit Provider, Attending Prov ider Active Dr. Patricia Valenzuela MD Other Provider Active Dr. Jose Maria Hudson MD Other Provider Active Team Status: Inactive Member Role Status Dates Dr. Martina Lal , DO Primary Care Provider Active Rama Camara 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, 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-C Attending Provider, Referring P opal Active Team Status: Inactive Member Role Status Dates Dr. Martina Lal DO Primary Care Provider Active Dr. Anthony Davila MD Emergency Provider Active Dr. Wendy Mishra MD Admit Provider, Other Provider Active Dr. Loan Luu , Attending Provider Active Dr. Ryder De Los Santos MD Other Provider Active Team Status: Active Member Role Status Dates Dr. Martina Lal , DO Primary Care Provider, Other Provider Active ERIKA Harrison Attending Provider Active Team Status: Inactive Member Role Status Dates Dr. Martina Lal , DO Primary Care Provider, Other Provider Active Juani Maya NP-Jonn Attending Provider Active Team Status: Active Member Role Status Dates Dr. Martina Lal DO Primary Care Provider Active Dr. Stew Cruz MD Attending Provider, Referring Provider Active Team Status: Active Member Role Status Dates Dr. Martina Lal DO Primary Care Provider Active Dr. Stew Cruz MD Attending Provider Active Dr. Wendy Mishra MD Referring Provider Active Team Status: Inactive Member Role Status Dates Dr. Martina Lal , DO Primary Care Provider, Attend ing Provider Active Dr. Abbi Junior MD Other Provider Active Team Status: Inactive Member Role Status Dates Dr. Martina Lal , DO Primary Care Provider, Referr ing Provider Active Dr. Cyrus Whipple MD Attending Provider Active Team Status: Inactive Member Role Status Dates Dr. Martina Lal , DO Primary Care Provider, Other Provider Active Dr. Dena Kwok MD Attending Provider, Referri ng Provider Active Dr. Cyrus Whipple MD Other Provider Active Team Status: Inactive Member Role Status Dates Dr. Martina Lal , DO Primary Care Provider Active Dr. Dena Kwok MD Attending Provider, Referri ng Provider Active Team Status: Inactive Member Role Status Dates Dr. Martina Lal DO Primary Care Provider, Referr ing Provider Active Dr. Tk Varela MD Attending Provider Active Team Status: Inactive Member Role Status Dates Dr. Martina Lal DO Primary Care Provider, Referr ing Provider Active Dr. Angely Carrizales MD Attending Provider Active Team Status: Active Member Role Status Dates Dr. Martina Lal DO Primary Care Provider Active Dr. Willy Trimble MD Attending Provider Active Team Status: Active Member Role Status Dates Dr. Martina Lal DO Primary Care Provider Active Ovidio Gutierrez 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, 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-C Attending Provider Active Team Status: Inactive Member Role Status Dates Dr. Martina Lal DO Primary Care Provider Active Dr. Angely Carrizales MD Attending Provider, Referring Pr ovider Active Dr. Socorro Ivan MD Other Provider Active Dr. Dena Kwok MD Other Provider Active Team Status: Active Member Role Status Dates Dr. Martina Lal DO Primary Care Provider Active Dr. Willy Trimble MD Attending Provider Active Dr. Angely Carrizales MD Referring Provider Active Team Status: Inactive Member Role Status Dates Dr. Martina Lal DO Primary Care Provider, Referr ing Provider Active PADMINI Matamoros Attending Provider Active Team Status: Inactive Member Role Status Dates Dr. Martina Lal DO Primary Care Provider Active PADMINI Mat[place]oros Attending Provider, Referring Provid er Active Team Status: Inactive Member Role Status Dates Dr. Martina Lal DO Primary Care Provider Active Dr. Tamra Francis MD Attending Provider, Referring Pr ovider Active Team Status: Active Member Role Status Dates Dr. Martina Lal DO Primary Care Provider Active PADMINI Matamoros Attending Provider, Referring Provid er Active Team Status: Inactive Member Role Status Dates Dr. Martina Lal DO Primary Care Provider Active Dr. Frank Balderas DO Emergency Provider Active Team Status: Active Member Role Status Dates Dr. Martina Lal DO Primary Care Provider Active Dr. Willy Trimble MD Attending Provider Active PADMINI Mat[place]os Referring Provider Active Team Status: Inactive Member Role Status Dates Dr. Martina Lal DO Primary Care Provider Active Dr. Frank Balderas DO Attending Provider, Emergency Provider Active Team Status: Inactive Member Role Status Dates Dr. Martina Lal DO Primary Care Provider Active Dr. Angely Carrizales MD Attending Provider, Referring Pr ovider Active Team Status: Active Member Role Status Dates Dr. Martina Lal DO Primary Care Provider Active Dr. Angely Carrizales MD Attending Provider, Referring Pr ovider Active Team Status: Active Member Role Status Dates Dr. Martina Lal DO Primary Care Provider Active Team Status: Inactive Member Role Status Dates Dr. Martina Lal DO Primary Care Provider Active Start: July 01, 2024 End: July 01, 2024 Dr. Tamra Francis MD Attending Provider Active Start: July 01, 2024 End: July 01, 2024 Dr. Tamra Francis MD Referring Provider Active Start: July 01, 2024 End: July 01, 2024 Team Status: Inactive Member Role Status Dates Dr. Martina Lal DO Primary Care Provider Active Start: August 09, 2024 End: August 09, 2024 Dr. Martina Lal DO Referring Provider Active Start: August 09, 2024 End: August 09, 2024 Dr. Willy Trimble MD Attending Provider Active S tart: August 09, 2024 End: August 09, 2024 Team Status: Inactive Member Role Status Dates Dr. Martina Lal DO Primary Care Provider Active Start: August 17, 2024 End: August 17, 2024 Dr. Martina Lal DO Referring Provider Active Start: August 17, 2024 End: August 17, 2024 Kimberly WASHINGOTN, PA Attending Provider Active Start: August 17, 2024 End: August 17, 2024 Team Status: Inactive Member Role Status Dates Dr. Martina Lal DO Primary Care Provider Active Start: October 07, 2024 End: October 07, 2024 Dr. Martina Lal DO Attending Provider Active Start: October 07, 2024 End: October 07, 2024 Dr. Martina Lal DO Referring Provider Active Start: October 07, 2024 End: October 07, 2024 Team Status: Active Member Role Status Dates Dr. Martina Lal DO Primary Care Provider Active Start: October 12, 2024 Dr. Martina Lal DO Attending Provider Active Start: October 12, 2024 Dr. Martina Lal DO Referring Provider Active Start: October 12, 2024 Dr. Dena Kwok MD Other Provider Active Start: October 12, 2024 Team Status: Inactive Member Role Status Dates Dr. Martina Lal DO Primary Care Provider Active Start: October 12, 2024 End: October 12, 2024 Dr. Martina Lal DO Attending Provider Active Start: October 12, 2024 End: October 12, 2024 Dr. Martina Lal DO Referring Provider Active Start: October 12, 2024 End: October 12, 2024 Dr. Dena Kwok MD Other Provider Active Start: October 12, 2024 End: October 12, 2024 Team Status: Inactive Member Role Status Dates Dr. Martina Lal DO Primary Care Provider Active Start: November 09, 2024 End: November 09, 2024 PADMINI Matamoros Attending Provider Active Star t: November 09, 2024 End: November 09, 2024 PADMINI Mat[place]oros Referring Provider Active Star t: November 09, 2024 End: November 09, 2024 Team Status: Active Member Role Status Dates Dr. Martina Lal DO Primary Care Provider Active Start: November 09, 2024 Dr. Willy Trimble MD Attending Provider Active S tart: November 09, 2024 Team Status: Active Member Role Status Dates Dr. Martina Lal DO Primary Care Provider Active Start: November 09, 2024 Dr. Willy Trimble MD Attending Provider Active S tart: November 09, 2024 PADMINI Matamoros Referring Provider Active Star t: November 09, 2024 Team Status: Inactive Member Role Status Dates Dr. Martina Lal DO Primary Care Provider Active Start: December 06, 2024 End: December 06, 2024 Kimberly W[place] PA Attending Provider Active Start: December 06, 2024 End: December 06, 2024 Kimberly W[place] PA Referring Provider Active Start: December 06, 2024 End: December 06, 2024 Team Status: Inactive Member Role Status Dates Dr. Martina Lal DO Primary Care Provider Active Start: December 16, 2024 End: December 16, 2024 Dr. Martina Lal DO Referring Provider Active Start: December 16, 2024 End: December 16, 2024 Kimberly W[place] PA Attending Provider Active Start: December 16, 2024 End: December 16, 2024 Team Status: Inactive Member Role Status Dates Dr. Martina Lal DO Primary Care Provider Active Start: December 24, 2024 End: December 24, 2024 Dr. Brent Kelley MD Attending Provider Active S tart: December 24, 2024 End: December 24, 2024 Team Status: Inactive Member Role Status Dates Dr. Martina Lal DO Primary Care Provider Active Start: December 24, 2024 End: December 24, 2024 ERIKA Steen Attending Provider Active Start: December 24, 2024 End: December 24, 2024 ERIKA Steen Referring Provider Active Start: December 24, 2024 End: December 24, 2024 Team Status: Inactive Member Role Status Dates Dr. Martina Lal DO Primary Care Provider Active Start: January 01, 2025 End: January 01, 2025 Dr. Martina Lal DO Referring Provider Active Start: January 01, 2025 End: January 01, 2025 PADMINI Lutz Attending Provider Active Start: January 01, 2025 End: January 01, 2025 FOR RECORDS PERTAINING TO PATIENTS WHO ARE OR HAVE BEEN ENROLLED IN A CHEMICAL DEPENDENCY/SUBSTANCEABUSE PROGRAM, SOME INFORMATION MAY BE OMITTED. This clinical summary was aggregated from multiple sources. Caution should be exercised in using it in the provision of clinical care. This summary normalizes information from multiple sources, and as a consequence, information in this document may materially change the coding, format and clinical context of patient data. In addition, data may be omitted in some cases. CLINICAL DECISIONS SHOULD BE BASED ON THE PRIMARY CLINICAL RECORDS. [facility] provides no warranty or guarantee of the accuracy or completeness of information in this document.
--- NOTE | 2025-01-12 19:46 | STRESSREP ---
Stress Test Report Pharmacologic myocardial perfusion stress test. 89-year-old lady for preop evaluation for carotid surgery Resting EKG demonstrates sinus rhythm with a rate of 74 with a rate of 74 bpm. Resting blood pressure is 158/70 mmHg. 0.4 mg of regadenoson was infused per usual protocol followed by rapid intravenous saline flush injection. Continuous EKG monitoring was performed. The maximum heart rate was 88 bpm which was 66% of max impacted heart rate the maximum workload was 1 metabolic equivalent. At rest there were no ST or T wave changes noted to suggest ischemia and at peak infusion nonspecific ST changes were noted which did not meet the criteria for ischemia. No clinical angina is noted. The final blood pressure was 152/60 mmHg. Myocardial perfusion protocol. 14.3 mCi of technetium 99m sestamibi was injected at rest. 0.4 mg of regadenoson was infused per usual protocol. At peak infusion 44.1 mCi of technetium 99m sestamibi was injected stress images were obtained stress and rest images were reconstructed and compared in the short axis vertical long and horizontal long axis. Gated images were also obtained. Perfusion SPECT analysis: Review of the stress images demonstrate normal uptake of tracer noted in all areas of the myocardium. The resting images similar demonstrated normal uptake of tracer noted in all areas of the myocardium. No areas of reversibility are noted to suggest ischemia and no previous infarct is noted. Gated SPECT analysis: The gated ejection fraction is 79%. Conclusion: Normal pharmacologic myocardial perfusion stress test. Preserved ejection fraction.
== END | disposition home or self-care (01) ==
LOC: CVS 06:06
PROVIDERS: PCP Internal Medicine; Referring Provider Physician Assistant Medical; Visit Provider Physician Assistant Medical
DX: R07.9 Chest pain, unspecified (principal)
CPT/HCPCS: 78452; 93017; A9500; A4216; J2785

== ENCOUNTER 2025-01-23 07:41 | Emergency (ER) | payer MEDICARE, SELFPAY ==
[2025-01-23] VITALS (13 sets, daily range): BP systolic 107–148; BP diastolic 50–86; PULSE 70–92; RESP 14–24; TEMP 36.6–37.1; O2SAT 93–98; BMI 40.9
--- NOTE | 2025-01-23 08:06 | EKG12_ITS ---
Test Reason : SOB Blood Pressure : */* mmHG Vent. Rate : 71 BPM Atrial Rate : 71 BPM P-R Int : 196 ms QRS Dur : 74 ms QT Int : 384 ms P-R-T Axes : 73 1 64 degrees QTcB Int : 417 ms Normal sinus rhythm Nonspecific ST abnormality Abnormal ECG Confirmed by RUPERTO LAINEZ, GEOVANNI ([id number]), photography editor MANASA EGAN ([id number]) on 01/24/2025 11:00:52 AM Referred By: Confirmed By: GEOVANNI HICKEY MD
--- NOTE | 2025-01-23 08:06 | EKG12_ITS ---
Test Reason : SOB Blood Pressure : */* mmHG Vent. Rate : 71 BPM Atrial Rate : 71 BPM P-R Int : 196 ms QRS Dur : 74 ms QT Int : 384 ms P-R-T Axes : 73 1 64 degrees QTcB Int : 417 ms Normal sinus rhythm Nonspecific ST abnormality Abnormal ECG Confirmed by RUPERTO LAINEZ, GEOVANNI ([id number]), managing editor MANASA EGAN ([id number]) on 01/24/2025 11:00:52 AM Referred By: Confirmed By: GEOVANNI HICKEY MD
--- NOTE | 2025-01-23 08:06 | ED.VIS.DYS ---
HPI History of Present Illness Chief Complaint: Cough Narrative Narrative: Chief complaint and HPI: Cough. 89-year-old female with past medical history of DM, HTN, HLD, HFpEF, previous breast cancer presents for evaluation of cough. Patient states that she is on Dupixent every 2 weeks for history of chronic sores. This prevents them from happening. Patient states since she has had a dry cough and rhinorrhea. States that she feels that she cannot cant get enough air as her chest feels tight. Denies tobacco abuse. Denies any fever, chills, chest pain, abdominal pain, nausea, vomiting, diarrhea, dysuria. Denies any increase in bilateral lower extremity swelling or pain. Review of systems: See HPI Medications: As listed on the chart Allergies: As listed on the chart PFSH: Per chart Vital signs: As listed on the chart. Reviewed. Physical exam: Gen: A&O x3, NAD Head: Normocephalic, atraumatic Eyes: No sclera icterus, conjunctiva clear ENT: Moist mucous membranes Neck: Trachea midline, No JVD CV: RRR, no murmurs, no peripheral edema Resp: Lungs CTA BL but diminished in the bilateral bases, no w/r/c, dry cough GI: Abd soft, non-distended, non-tender, no r/r/g Musc: Full ROM, no deformity Skin: Warm, dry Neuro: Alert, oriented, grossly intact, sensation intact Psych: Cooperative, appropriate mood and affect [facility] Medical History Obesity Left carotid artery stenosis (HFpEF) heart failure with preserved ejection fraction Hiatal hernia Nocturnal hypoxia Labile blood pressure FTT (failure to thrive) in adult ABDI (obstructive sleep apnea) Left adrenal mass Uncontrolled hypertension Shakiness Hypoxia Labile blood pressure Encounter for education Left adrenal mass Diastolic congestive heart failure Hypertension Diabetes mellitus Glaucoma Chronic kidney disease, stage 3a Debility HLD (hyperlipidemia) Stage 3a chronic kidney disease (CKD) Hypertension CHF (congestive heart failure) Breast abscess Wears hearing aid Wears glasses Arthritis History of IBS PONV (postoperative nausea and vomiting) Breast cancer, right breast (~03/2022) Right flank pain Recurrent incisional hernia with incarceration BMI 40.0-44.9, adult Type 2 diabetes mellitus Hypoxia Bilateral carotid artery stenosis Hyperlipidemia GERD (gastroesophageal reflux disease) Bilateral extracranial carotid artery stenosis HTN (hypertension) Body aches Cough Malaise Home Medications ?Medication ?Instructions ?Recorded ?Last Taken ?Type latanoprost 0.005 % eye drops 1 drp EACH EYE QHS Cataracts/Dry 07/29/14 07/13/22 History (Xalatan) eye cholecalciferol (vitamin D3) 125 125 mcg PO DAILY SUPPLEMENT 04/01/22 07/13/22 History mcg (5,000 unit) capsule nateglinide 60 mg tablet 60 mg PO TID dm 07/13/22 07/13/22 History magnesium oxide 400 mg PO DAILY 03/03/23 Unknown History aspirin 81 mg chewable tablet 81 mg PO DAILY HEART HEALTH 11/20/23 Unknown History calcium carbonate 500 mg PO DAILY 11/20/23 Unknown History potassium, sodium phosphates 280 1 packet PO QDAY 04/28/24 Unknown History mg-160 mg-250 mg oral powder packet (Phos-NaK) losartan 100 mg tablet 100 mg PO DAILY #90 tabs 05/03/24 Unknown Rx dupilumab 200 mg/1.14 mL 200 mg subcut Q2W 08/17/24 Unknown History subcutaneous pen injector ([employer]) rosuvastatin 5 mg tablet 5 mg PO QHS #90 tabs 08/17/24 Unknown Rx furosemide 40 mg tablet 40 mg PO DAILY #90 tabs 10/04/24 Unknown Rx nifedipine 90 mg tablet,extended 90 mg PO QPM #90 tabs 10/04/24 Unknown Rx release benzonatate 100 mg capsule 100 mg PO TID PRN cough 5 days #15 01/23/25 Unknown Rx caps levofloxacin 250 mg tablet 250 mg PO DAILY 7 days #8 tabs 01/23/25 Unknown Rx Allergy/AdvReac Type Severity Reaction Status Date / Time clonidine (From Catapres) Allergy Intermediate Topical Verified 01/23/25 07:42 Reaction to PATCH ONLY, pills ok morphine AdvReac Intermediate mental Verified 01/23/25 07:42 status change meperidine HCl (From Demerol) AdvReac Mild mental Verified 01/23/25 07:42 status change Family History Brother Pancreatic cancer Diabetes Heart disease Lung cancer Hypertension Colon cancer Mother Hypertension Brother No problems noted. 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 housing: house Smoking Status: Never smoker alcohol intake: never substance use type: does not use what type of physical activity do you participate in: none seatbelt use: always do you feel safe at home: Yes EXAM Physical Exam Const Vital Signs: 01/23/25 07:42 01/23/25 07:49 01/23/25 07:51 Temperature 98.1 F 98.1 F Temperature Source Oral Oral Pulse Rate 81 82 Respiratory Rate 24 H 18 Respiratory Effort Short of Breath Respiratory Depth Normal Blood Pressure 145/54 H 107/86 H Blood Pressure Mean 84 93 Pulse Ox 98 94 Oxygen Delivery Method Room Air Room Air Room Air 01/23/25 08:24 01/23/25 08:24 01/23/25 09:09 Temperature 97.9 F Temperature Source Oral Pulse Rate 70 74 Respiratory Rate 18 14 Respiratory Effort Respiratory Depth Blood Pressure 147/56 H Blood Pressure Mean 86 Pulse Ox 93 96 Oxygen Delivery Method Room Air Room Air 01/23/25 09:59 01/23/25 10:00 01/23/25 11:00 Temperature 97.9 F 98.7 F Temperature Source Oral Oral Pulse Rate 80 89 92 Respiratory Rate 18 22 H 19 H Respiratory Effort Respiratory Depth Blood Pressure 126/51 H 148/52 H Blood Pressure Mean 76 84 Pulse Ox 98 96 Oxygen Delivery Method Nasal Cannula Room Air 01/23/25 12:00 01/23/25 13:00 01/23/25 14:02 Temperature 98.1 F 98.1 F 98.1 F Temperature Source Oral Oral Pulse Rate 87 88 88 Respiratory Rate 22 H 21 H 21 H Respiratory Effort Respiratory Depth Blood Pressure 148/50 H 148/54 H 148/54 H Blood Pressure Mean 82 85 85 Pulse Ox 94 95 95 Oxygen Delivery Method Room Air Room Air 01/23/25 15:00 Temperature Temperature Source Pulse Rate 83 Respiratory Rate 19 H Respiratory Effort Respiratory Depth Blood Pressure Blood Pressure Mean Pulse Ox 96 Oxygen Delivery Method Room Air MDM MDM MDM Narrative Medical decision making narrative: 89-year-old female with past medical history of DM, HTN, HLD, HFpEF, previous breast cancer presents for evaluation of cough. Patient states that she is on Dupixent every 2 weeks for history of chronic sores. This prevents them. Patient states since she has had a dry cough and rhinorrhea. States that she feels that she cannot cant get enough air as her chest feels tight. Denies tobacco abuse. Denies any fever, chills, chest pain, abdominal pain, nausea, vomiting, diarrhea, dysuria. Denies any increase in bilateral lower extremity swelling or pain. Differential diagnosis includes but is not limited to pneumonia, viral illness, suspect less likely CHF, electrolyte abnormality, MALATHI. 500 cc NS bolus ordered -will be judicious with fluids given her history of heart failure, DuoNebs ordered. Respiratory workup ordered CBC with mild leukocytosis 11.9. No anemia. Platelets unremarkable. BMP shows worsening CKD with a BUN of 29 and a creatinine of 1.89. Patient's baseline creatinine appears to be about 1.3 however it was 1.56 in December of this year. BNP unremarkable. Chest x-ray was personally reviewed and interpreted by me, ED physician. Chest x-ray concerning for bilateral pneumonia. Radiology in agreement. On reevaluation, patient not requiring any oxygen however she states that she is not comfortable discharging home due to her weakness. She is on immunosuppressants which may be why she is not developing a leukocytosis. Rocephin and azithromycin ordered for community-acquired pneumonia. Patient was updated about her increase in her creatinine. She states 3 days ago she had her Lasix increased by her social services coordinator given peripheral edema. She states that the peripheral edema has improved. She was told to stop doubling after 3 days. This is likely the cause of her elevated creatinine. Given patient's concerns for discharging home, hospice service was contacted and I spoke with Dr. Martinez. He is unsure if patient has pneumonia and therefore wanted repeat x-ray which he placed. Patient was informed of the plan. Also recommended another NS bolus. I did explain to him that patient has heart failure and was just doubled up on Lasix however recommended another NS bolus. This was ordered. Repeat chest x-ray was personally reviewed and interpreted by me, ED physician. Patient does have improved aeration of the lung. This however she still has areas bilaterally that are concerning for possible pneumonia versus atelectasis. Per radiology given they improved suspect atelectasis over pneumonia. Informed patient was informed of the results. 6. Plan will be to discharge home. Given her symptoms it was still prescribed antibiotics. Patient again not comfortable with discharging home. I spoke with Dr. Luu, the hospitalist. If patient is truly not comfortable discharging home she can be placed in observation. I spoke with the patient, after discussion with her and her daughter. Plan will be to discharge home on antibiotics and follow-up with primary care physician. I did ambulate the patient without any drop in pulse ox. Given patient's kidney function I did speak with Dr. Luu about appropriate Levaquin dosing. She recommended 500 mg x 1 day and then to 50 mg x 6 days. This was ordered. Return precautions explained. Patient given an order to have her creatinine repeated in 2 days and to follow-up with her PCP. She confirmed understanding the plan. EKG: Interpreted by me/EM physician: EKG shows normal sinus rhythm with a heart rate of 71. Nonspecific ST changes however similar to previous EKG in June 2022 Impression: 1. Pneumonia 2. Renal insufficiency on CKD Lab Data Labs: Laboratory Results - last 24 hr 01/23/25 07:55 WBC 11.9 H RBC 4.54 Hgb 13.6 Hct 40.1 MCV 88.3 MCH 30.0 MCHC 33.9 RDW Std Deviation 43.8 RDW Coeff of Pedro 13.5 Plt Count 277 MPV 9.9 Immature Gran % (Auto) 0.300 Neut % (Auto) 62.9 Lymph % (Auto) 19.8 [place] % (Auto) 9.6 Eos % (Auto) 6.6 H Baso % (Auto) 0.8 Absolute Neuts (auto) 7.5 Absolute Lymphs (auto) 2.36 Nucleated RBC % 0 Sodium 137 Potassium 4.3 Chloride 100 Carbon Dioxide 23.4 Anion Gap 14 BUN 29 H Creatinine 1.89 H Estim Creat Clear Calc 22.96 L Est GFR (MDRD) Non-Af 25 L BUN/Creatinine Ratio 15.4 Glucose 151 H Calcium 10.5 NT pro BNP II 303 Radiography Diagnostic Testing: Clinical Impression(s) from Imaging Studies Chest X-Ray 01/23/25 08:55 IMPRESSION: 1. Patchy airspace disease in both lungs, consistent with pneumonia. 2. Other findings as noted. Reading Location: [facility] Chest X-Ray 01/23/25 11:30 IMPRESSION: Interval improved aeration of the lungs consistent with atelectasis. Reading Location: [id number] Discharge Plan Triage Chief Complaint: Cough ED Provider: Fernando Samson Dx/Rx/DC Orders Clinical Impression: Pneumonia Instructions: ED Pneumonia (Adult) Prescriptions: New levofloxacin 250 mg tablet 250 mg PO DAILY 7 Days Qty: 8 0RF Rx Instructions: Take 2 tabs on day 1 and then 1 tab for 6 more days. Start the antibiotics on 01/24/2025 benzonatate 100 mg capsule 100 mg PO TID PRN (Reason: cough) 5 Days Qty: 15 0RF No Action cholecalciferol (vitamin D3) 125 mcg (5,000 unit) capsule 125 mcg PO DAILY magnesium oxide 400 mg magnesium tablet 400 mg PO DAILY calcium carbonate 500 mg calcium (1,250 mg) tablet 500 mg PO DAILY potassium, sodium phosphates [Phos-NaK] 280-160-250 mg powder in packet 1 packet PO QDAY Dupixent Pen 200 mg/1.14 mL pen injector 200 mg subcut Q2W rosuvastatin 5 mg tablet 5 mg PO QHS Qty: 90 3RF latanoprost [Xalatan] 1 DROP bottle 1 drp EACH EYE QHS aspirin 81 mg tablet,chewable 81 mg PO DAILY Patient Comments: PT'S LAST DOSE OF ASPIRIN WILL BE 04/26/2022 nateglinide 60 mg tablet 60 mg PO TID losartan 100 mg tablet 100 mg PO DAILY Qty: 90 3RF nifedipine 90 mg tablet extended release 90 mg PO QPM Qty: 90 3RF furosemide 40 mg tablet 40 mg PO DAILY Qty: 90 3RF Other Ambulatory Orders: Basic Metabolic Profile (BMP) (Routine) Timeframe: 2 Days Facility: [facility] - Location: Laboratory Ordered By: Dr. Fernando Samson Primary Care Provider: Martina Lal Referrals: Martina Lal DO [Primary Care Provider] - 3-5 Days Activity Restrictions/Additional Instructions: Start your antibiotics tomorrow as you received your first dose here in the emergency department. Return back to the ED if symptoms change or worsen. Your kidney function was elevated here in the emergency department with a creatinine of 1.89. This is likely secondary to doubling your Lasix. Go back to taking your Lasix daily. Prescription written to have your creatinine rechecked in 48 hours. Follow-up with your primary care physician. Print Language: Arabic Disposition Disposition: Home, Self Care Discharge Date/Time: 01/23/25 15:21
[2025-01-23 08:25] LABS: Hematocrit 40.1 % (37-47); Hemoglobin 13.6 g/dL (12.0-15.0); Immature Granulocytes Count 0.030 X10^3/uL (0.0-0.0); Mean Corp Hgb Conc 33.9 g/dL (32-36); Mean Corpuscular Volume 88.3 fL (81-99); Mean Platelet Vol. 9.9 fl (6.2-12.0); NRBC Flagged by Analyzer 0 % (0-5); Platelet Count 277 K/mm3 (150-450); RBC Distribution Width CV 13.5 % (11.6-14.6); RBC Distribution Width SD 43.8 fl (35.1-43.9); Red Blood Count 4.54 M/mm3 (4.2-5.4); White Blood Count 11.9 K/mm3 (4.4-11.0)
[2025-01-23] MEDS: 0.9% Normal Saline (500mL Bag) 500 ML 999 ML IV ×2 (08:26→14:00)
--- OUTSIDE RECORDS SUMMARY | 2025-01-23 08:34 | XMS RPT_ITS | CCD ---
Author Organization [facility] Care Team Providers Care Press Tender Short Goods Name Role Phone NALINI CELIO DPM Unavailable Unavailable NALINI CELIO DPM Unavailable Unavailable NALINICELIO DPM Unavailable Unavailable PHILIP KUMAR Unavailable Unavailable PROVIDER, UNKNOWN Unavailable Unavailable Michael Michel MD Unavailable Ciesa, Marquita Unavailable Turner Balderas Unavailable Unavailable Unavailable Unavailable Ciesa YAMILETH, Marquita Unavailable Turner Balderas LPN Unavailable Unavailable Unavailable Unavailable Martina Lal DO Unavailable Sanam Quesada Unavailable Jero Garcia Unavailable Norman DAVISON, Diane Unavailable Unavailable Mohamud SERVOMECHANISM ASSEMBLER, Nelda Unavailable Unavailable Slarb SERVOMECHANISM ASSEMBLER, Steffany Unavailable Unavailable Gravius AGILE PROJECT MANAGER, Keri Unavailable Unavailable Ciesa UNDERCOAT SPRAYER, Marquita Unavailable Dr. Martina Lal Primary Care Provider [phone] Dr. Martina Lal Referring Provider [phone] Dr. Michael Michel Attending Provider Martina Lal DO Unavailable Tamra Francis Unavailable mitzy Stovall Unavailable Unavailable Dr. Martina Lal Primary Care Provider [phone] Dr. Martina Lal Referring Provider Arslan WINSLOW, ERIKA Ndiaye Attending Provider Dr. Martina Lal Primary Care Provider [phone] Dr. Martina Lal Referring Provider Dr. Michael Michel Attending Provider Sarabjit Cyrus Unavailable Michael Michel MD Unavailable Cooper Kwok Unavailable Dr. Michael Michel Referring Provider Dr. Michael Michel Other Provider Michael Amado Unavailable Dr. Angely Carrizales Attending Provider Dr. Michael Michel Referring Provider YAW Flores Attending Provider Dr. Venkat Burnham Emergency Provider 1([facility])[phone] Dr. Felice Waller Attending Provider Dr. Willy [...] Attending Provider Dr. Michael Michel Referring Provider Anand, Dr. Michael Chi Other Provider Yodit W[place], PAJorgeC Adeola Attending Provider Dr. Venkat Burnham Emergency Provider 1([facility])[phone] Dr. Felice Waller Attending Provider Dr. Willy [...] Provider Dr. Buzz Duran Other Provider Jax WINSLOW, SECTION CHIEFPeter Ontiveros Attending Provider Dr. Willy Trimble Attending Provider Manchak AGILE PROJECT MANAGER, Katharina Unavailable Unavailable Daya HANK, Kayela Unavailable Unavailable Dr. Socorro Ivan Attending Provider Shawanda SECTION CHIEF, SECTION CHIEF-C Susan Attending Provider MD Zeferino Kingsley Emergency [...] Provider Dr. Buzz Duran Other Provider Jax SECTION CHIEF, SECTION CHIEF-C Rama Attending Provider Dr. Willy Trimble Attending Provider Dr. Socorro Ivan Attending Provider Shawanda SECTION CHIEF, SECTION CHIEF-C Susan Attending Provider MD Zeferino [facility] Emergency [...] Ryder De Los Santos Other Provider Arslan SECTION CHIEF, SECTION CHIEFJorgeC Zelda Attending Provider Dr. Martina Lal Primary Care Provider Dr. Michael Michel Attending Provider Dr. Martina Lal Referring Provider Dr. Stew Cruz Referring Provider Dr. Wendy Mishra Referring Provider Martina Lal DO Attending Unavailable Martina Lal DO Consulting Unavailable Dr. Martina Lal Primary Care Provider MD Zeferino Kingsley Emergency Provider Dr. Joie Gamez Admit Provider Dr. Joie Gamez Attending Provider Dr. Joie Gamez Other Provider Dr. Stew Cruz Attending Provider Dr. Stew Cruz Referring Provider Dr. Patricia Valenzuela Other Provider Dr. Jose Maria Hudson Other Provider Dr. Patricia Valenzuela Attending Provider Dr. Martina Lal Referring Provider Jax SECTION CHIEF, SECTION CHIEF-C Rama Attending Provider Dr. Anthony Davila Emergency Provider Dr. Wendy Mishra Admit Provider Dr. Wendy Mishra Attending Provider Dr. Wendy Mishra Other Provider Dr. Ryder De Los Santos Attending Provider Dr. Ryder De Los Santos Other Provider Dr. Loan Luu Attending Provider Dr. Loan Luu Other Provider Dr. eWndy Mishra Referring Provider Arslan SECTION CHIEF, SECTION CHIEF-C Zelda Attending Provider Dr. Cyrus Whipple Attending Provider Dr. Martina Lal Primary Care Provider Dr. Martina Lal Referring Provider Jax SECTION CHIEF, SECTION CHIEF-C Rama Attending Provider Arslan SECTION CHIEF, SECTION CHIEF-C Zelda Attending Provider Dr. Martina Lal Primary Care Provider Dr. Martina Lal Referring Provider Dr. Tk Varela Attending Provider Fast DO, Emily A Unavailable Dr. Angely Carrizales Attending Provider Dr. Willy Trimble Attending Provider Roof SECTION CHIEF, SECTION CHIEF-C Ovidio Hadley Attending Provider Dr. Martina Lal Primary Care Provider Dr. Martina Lal Referring Provider Dr. Angely Carrizales Referring Provider PADMINI Suarez Attending Provider Dr. Martina Lal Primary Care Provider [phone] Dr. Martina Lal Referring Provider PADMINI Suarez Attending Provider 1([facility])-[phone] Arslan SECTION CHIEF, SECTION CHIEF-Jonn Ndiaye Attending Provider Dr. Martina Lal Primary Care Provider Dr. Martina Lal Referring Provider Dr. Willy Trimble Attending Provider 1([facility])-[phone] PADMINI Suarez Referring Provider 1([facility])-[phone] Martina Lal Primary Care Provider 1([facility] )-[phone] Dr. Willy Trimble Attending Provider 1([facility])-[phone] PADMINI Suarez Referring Provider 1([facility])-[phone] Martina Lal Referring Provider 1([facility])[phone] Dr. Angely Carrizales Attending Provider 1([facility])[phone] Martina Lal Primary Care Provider 1([facility] )-[phone] Dr. Lisa Mariscal Emergency Provider 1([facility])[phone] Willy Booth Admit Provider Dr. Willy Booth Other Provider Dr. Meng Martinez Other Provider 1([facility])[phone] Dena Kwok Other Provider 1([facility])[phone] Dr. Stew Cruz Attending Provider 1([facility])[phone] Dr. Stew Cruz Other Provider 1([facility])[phone] Meng Martinez Attending Provider 1([facility])[phone] Yodit W[place], PA-C Adeola Attending Provider Dr. Martina Lal Referring Provider 1([facility])[phone] Dr. Loan Luu Attending Provider Dr. Loan Luu Other Provider Dr. Cyrus Whipple Attending Provider 1([facility])[phone] Martina Lal DO Primary Care Provider Tito LAINEZ, Dr. Barboza Attending Provider Tito LAINEZ, Dr. Barboza Referring Provider Lukasz PORTILLO, Dr. Mack Referring Provider [phone] Atilio LAINEZ, Dr. Aguilera Attending Provider [phone] Kimberly Hunt Attending Provider Lukasz PORTILLO, Dr. Mack Attending Provider [phone] Rissa LAINEZ, Dr. Fernandes Other Provider Lukasz DO, Dr. Mack Primary Care Provider [phone] Louise West Attending Provider 1([facility])[phone] Louise West Referring Provider 1([facility])[phone] Lukasz PORTILLO, Dr. Mack Primary Care Provider Lukasz PORTILLO, Dr. Mack Referring Provider 1([facility] )4 Atilio LAINEZ, Dr. Aguilera Attending Provider 1([facility])[phone] Kimberly Hunt Attending Provider Kimberly Hunt Referring Provider [phone] Warren LAINEZ, Dr. Kennedy Attending Provider Rajiv SECTION CHIEF-CMackenzie Attending Provider Rajiv SECTION CHIEF-CMackenzie Referring Provider Neftaly Goldsmith Attending Provider Kimberly Hunt Other Provider Lukasz, Martina Referring Unavailable Felice Mcclure Attending Unavailable Lukasz, Martina Primary Care Unavailable Lukasz, Martina Primary Care Unavailable Brent Kelley Attending Unavailable Lukasz, Martina Referring Unavailable Lukasz, Martina Primary Care Unavailable Kimberly Hunt Attending Unavail able Lukasz, Martina Referring Unavailable Willy Trimble Attending Unavailable Lukasz, Martina Primary Care Unavailable Lukasz, Martina Primary Care Unavailable Kimberly Hunt Attending Unavail able Kimberly Hunt Referring Unavail able Lukasz, Martina Referring Unavailable Lukasz, Martina Attending Unavailable Lukasz, Martina Primary Care Unavailable Lukasz, Martina Primary Care Unavailable Kimberly Hunt Attending Unavail able Kimberly Hunt Referring Unavail able Tavon Dennis Attending Unavailable Lukasz, Martina Primary Care Unavailable Rajiv Mackenzie Referring Unavailable Rajiv Mackenzie Attending Unavailable Lukasz, Martina Primary Care Unavailable Atilio, Willy Referring Unavailable [place], Willy Attending Unavailable Lukasz, Martina Primary Care Unavailable Lukasz, Martina Referring Unavailable Lukasz, Martina Primary Care Unavailable Kimberly Hunt Attending Unavail able [place], Willy Referring Unavailable [place], Willy Attending Unavailable Lukasz, Martina Primary Care Unavailable Lukasz, Martina Primary Care Unavailable Nolt Nela Attending Unavailable Atilio, Willy Attending Unavailable Lukasz, Martina Primary Care Unavailable Suarez, Louise Referring Unavailable Lukasz, Martina Primary Care Unavailable Lukasz, Martina Referring Unavailable Arslan WINSLOW, Zelda Attending Unavailable Lukasz, Martina Primary Care Unavailable Brent Kelley Attending Unavailable Kimberly Hunt Consulting Unavail able Kimberly Hunt Referring Unavail able Lukasz, Martina Referring Unavailable Lukasz, Martina Primary Care Unavailable Neftaly Pro Attending Unavailable Basali, Ayman Referring Unavailable Basali, Ayman Attending Unavailable Lukasz, Martina Primary Care Unavailable Lukasz, Martina Referring Unavailable Lukasz, Martina Primary Care Unavailable Lukasz, Martina Attending Unavailable Rissa, Jayaprakas Consulting Unavailable Lukasz, Martina Primary Care Unavailable Lukasz, Martina Referring Unavailable Lukasz, Martina Attending Unavailable Basali, Ayman Referring Unavailable Basali, Ayman Attending Unavailable Lukasz, Martina Primary Care Unavailable Rissa, Jayaprakas Referring Unavailable Rissa, Jayaprakas Attending Unavailable Lukasz, Martina Primary Care Unavailable Lukasz, Martina Primary Care Unavailable Suarez, Louise Referring Unavailable Suarez, Louise Attending Unavailable Lukasz, Martina Referring Unavailable Arslan SECTION CHIEF, Zelda Attending Unavailable Lukasz, Martina Primary Care Unavailable Allergies Allergy Classification Reported Allergen(s) Allergy [...] upset (2 sources) Meperidine Drug Allergy 7 [facility] Work Phone: (20 sources) [...] HCl] Drug Allergy [address] [facility] (17 sources) cloNIDine Drug Allergy 3 Topical Reaction to PATCH ONLY, pills ok [facility] (1 source) cloNIDine Drug Allergy 5 [facility] (1 source) Morphine Drug Allergy 5 [facility] Medications Current Medications Medication Drug Class(es) [...] Start: 03-03-2023 take 1 capsule by mo [facility] once daily Hrralkzsshux-Yhbysw-Bbjesmdz Active 1 CA P PO DAILY March 03, 2023 12:00am Artery Cleanse (20 sources) Start: 05-22-2020 Artery Cleanse Active PO daily May 22, 2020 3:00pm Start: 05-22-2020 End: 03-18-2022 Artery Cleanse Discontinued PO daily 0 May 22, 2020 1:00am March 18, 2022 10:26am Start: 05-22-2020 End: 03-18-2022 Artery Cleanse Discontinued [...] 12:00am calcium carbonate 1250 mg oral tablet (8 sources) Start: 11-20-2023 take 1 tablet by mouth once daily Calcium Carbonate 500 mg calcium (1,250 mg) tablet Active 500 mg PO DAILY November 20, 2023 12:00am Cardio [place] [facility] (20 sources) Start: 05-22-2020 Cardio Platinu m Healthy Active PO DAILY May 22, 2020 3:00pm Start: 05-22-2020 End: 05-23-2022 Cardio [place] [facility] Disc ontinued 1 NMA PO DAILY 0 May 22, 2020 1:00am May 23, 2022 3:05pm SUPPLEMENT Start: 05-22-2020 End: 05-23-2022 Cardio [place] [facility] Disc ontinued 1 NMA PO DAILY May 22, 2020 1:00am May 23, 2022 3:05pm Start: 05-22-2020 End: 05-23-2022 take 1 capsule by mouth once daily Cardio [place] [facility] Discontinued 1 CAP PO DAILY May 22, 2020 12:00am May 23, 2022 2:05pm Start: 05-22-2020 End: 05-23-2022 take 1 capsule by mouth once daily Cardio [place] [facility] Discontinued 1 CAP PO DAILY May 22, 2020 1:00am May 23, 2022 3:05pm Start: 05-22-2020 take 1 capsule by [facility] once daily Cardio [place] [facility] Active 1 CAP PO DAILY May 22, 2020 1:00am Start: 05-22-2020 Cardio Platin[place] m Healthy Active PO DAILY May 22, 2020 1:00am cholecalciferol 0.125 mg oral capsule (20 sources) Vitamin D Start: 04-01-2022 End: 06-10-2022 take 1 capsule by mouth once daily Cholecalciferol (Vitamin D3) 125 mcg (5,000 unit) capsule Active 125 ug PO DAILY April 01, 2022 12:00am SUPPLEMENT Start: 09-15-2020 End: 04-04-2021 take 1 capsule by mouth once daily Vitamin D3 250 MCG (55296 UT) Oral Capsule 1 (one) Capsule daily as directed for 0 days Quantity: 30 {Capsule} Refills: 0 Ordered: 04-Apr-2021 Nelda Mallory LPN Start : 15-Sep-2020 End : 04-Apr-2021 Inactive take 1 capsule by [facility] once daily Vitamin D3 50 MCG (2000 UT) Oral Capsule daily (50 MCG (2000 UT)) Inactive Vitamin D3 25 MC G (1000 UT) Oral Tablet (25 MCG (1000 UT)) Inactive Curcumin-Phosphatidylcholine (10 sources) Start: 04-08-2023 Curcumin-Phosp hatidylcholine Active MG PO April 07, 2023 11:00pm Start: 04-08-2023 Curcumin-Phosp hatidylcholine Active MG PO April 08, 2023 12:00am Dupilumab (8 sources) Start: 08-17-2024 Dupilumab (Dup ixent Pen) 200 mg/1.14 mL pen injector Active 200 mg SC every 2 weeks August 17, 2024 1:00am furosemide 40 mg oral tablet (20 sources) Loop Diuretic Start: 10-16-2023 End: 10-04-2024 take 1 tablet by mouth once daily Furosemide 40 mg tablet Active 40 mg PO DAILY 90 3 October 04, 2024 3:53pm Start: 07-29-2022 End: 10-16-2023 Furosemide 20 mg tablet Disc ontinued 20 mg PO September 02, 2022 1:00am October 16, 2023 10:27am Start: 2022 take 1 tablet by lizzie th once daily Lasix 40 mg oral tablet tad Tablet daily for 0 days Quantity: 30 {Tablet} Refills: 1 Ordered: 26-Jul-2022 Rik Emily PORTILLO Start : 26-Jul-2022 Active Start: 07-25-2022 take [...] 02, 2022 1:00am September 04, 2022 4:11pm FLUID On Hold: Restart on 07/18/2022 Start: 06-03-2022 [...] solution (20 sources) Prostaglandin Analog Start: 07-29-2014 Latanoprost (Xalatan) 1 DROP bottle Active 1 NMA EACH EYE AT BEDTIME July 29, 2014 1:00am Cataracts/Dry eye losartan potassium 100 mg oral tablet (20 sources) Angiotensin 2 Receptor Yenny Start: 07-08-2023 End: 05-03-2024 take 1 tablet by mouth once daily Losartan 100 mg tablet Active 100 mg PO DAILY 90 3 May 03, 2024 3:19pm magnesium oxide 400 mg oral tablet (19 sources) Start: 03-03-2023 take 1 tablet by mouth once daily Magnesium Oxide 400 mg magnesium tablet Active 400 mg PO DAILY March 03, 2023 12:00am nateglinide 60 mg oral tablet (20 sources) Glinide Start: 07-13-2022 take 1 tablet by mouth three times daily Nateglinide 60 mg tablet Active 60 mg PO THREE TIMES A DAY July 13, 2022 1:00am dm Start: 08-27-2017 End: 07-10-2022 take 1 tablet by mouth three times daily Nateglinide 60 MG tablet Discontinued 60 mg PO THREE TIMES A DAY August 27, 2017 1:00am July 10, 2022 2:02pm BLOOD GLUCOSE Comment on above: Mail order. please fill for 90 d ay supply [place]-3 Fatty Acids-Fish Oil (20 sources) Start: 03-03-2023 take 1 capsule by mouth once daily [place]-3 Fatty Acids-Fish Oil Active 1 CAP PO DAILY March 03, 2023 12:40pm Start: 03-03-2023 take 1 capsule by mo [facility] once daily [place]-3 Fatty Acids-Fish Oil Active 1 CAP PO DAILY March 03, 2023 1:40pm Start: 07-29-2014 [place]-3 Fatty Acids-Fish Oil Active 1 EACH PO DAILY July 29, 2014 7:51pm Start: 07-29-2014 End: 03-03-2023 [place]-3 Fatty Acids-Fish Oil Discontinued 1 EACH PO DAILY July 29, 2014 12:00am March 03, 2023 12:44pm Start: 07-29-2014 End: 03-03-2023 [place]-3 Fatty Acids-Fish Oil Discontinued 1 EACH PO DAILY July 29, 2014 1:00am March 03, 2023 1:44pm Start: 07-29-2014 [place]-3 Fatty Acids-Fish Oil Active 1 EACH PO DAILY July 29, 2014 12:00am Start: 07-29-2014 [place]-3 Fatty Acids-Fish Oil Active 1 EACH PO DAILY July 29, 2014 1:00am Potassium, Sodium Phosphates (Phos-Nak) 280-160-250 mg powder in packet (8 sources) Start: 04-28-2024 Potassium, Sod ium Phosphates (Phos-Nak) 280-160-250 mg powder in packet Active 1 NMA PO daily April 28, 2024 12:00am rosuvastatin calcium 5 mg oral tablet (20 sources) HMG-CoA Reductase Inhibitor Start: 08-17-2024 take 1 tablet by mouth at bedtime Rosuvastatin 5 mg tablet Active 5 mg PO AT BEDTIME 90 3 August 17, 2024 1:00am Start: 05-28-2021 End: [...] Chlorid e (Deep Sea Nasal) 0.65 % Aerosol,[place] Active 2 SPRAY NASAL 3 TIMES DAILY [...] needed for Pain 1-10 Or Fever 0 0 May 23, 2022 12:00am June 03, 2022 8:08pm Start: 05-18-2022 End: 05-23-2022 Acetaminophen 500 mg Tablet Discontinued 1000 mg PO EVERY 8 HOURS 0 0 May 18, 2022 12:00am May 23, [...] 6 HOURS NEEDED as needed for Headache 0 September 30, 2018 12:00am May 22, 2020 [...] 6 HOURS NEEDED as needed for Pain 10 3 0 March 12, 2024 April 28, 2024 2:30pm Contusion of right foot, initial encounter Contusion of left foot Contusion of right foot, initial encounter Contusion of left foot, initial encounter Chronic kidney disease, stage 4 (severe) Start: 04-30-2022 take 1 tablet by lizzie th every eight hours Hydrocodone-Acetaminophen Active 1 TABLE T PO Q8H 5 2 April 30, 2022 Start: 08-27-2017 End: 06-26-2018 Hydrocodone-Acetaminophen 1 TABLET tablet Discontinued 1 - 2 {tbl} PO EVERY 4 HOURS NEEDED as needed for Pain 20 5 0 August 27, 2017 1:00am June 26, 2018 2:14pm Right knee pain Pain in right knee Start: 08-27-2017 End: 06-26-2018 take 1 tablet by mouth every four hours as needed Hydrocodone-Acetaminophen Discontinued 1 - 2 TABLET PO EVERY 4 HOURS NEEDED 20 5 August 27, 2017 1:00am June 26, 2018 2:14pm Start: 08-27-2017 End: 06-26-2018 albuterol 0.833 mg/ml / ipratropium bromide 0.167 mg/ml inhalation solution (20 sources) Anticholinergic, beta2-Adrenergic Agonist Start: 09-30-2018 End: 05-22-2020 take 1 mL by inhalation every four hours Ipratropium-Albuterol 3 ML solution for nebulization Discontinued 3 mL INHALATION EVERY 4 HOURS WHILE AWAKE 0 September 30, 2018 12:00am May 22, 2020 [...] 23, 2022 6:00pm June 03, 2022 8:09pm BP Hold for SBP less than 130 mmHg Start: 05-10-2022 End: 10-16-2023 take 1 tablet by mouth once daily Amlodipine 10 mg tablet Discontinued 10 mg PO DAILY July 02, 2022 12:58pm October 16, 2023 10:01am blood pressure Start: 11-09-2021 End: 05-18-2022 take 1 tablet by mouth once daily Amlodipine (Norvasc) 5 mg tablet Discontinued 5 mg PO DAILY November 09, 2021 12:00am May 18, 2022 10:40am HTN Start: 08-27-2021 End: 10-03-2021 take 1 tablet by mouth once daily Norvasc 5 MG Oral Tablet 1 (one) Tablet qd for 0 days Quantity: 60 {Tablet} Refills: 0 Ordered: 03-Oct-2021 KettyNicolasa bocanegra Start : 27-Aug-2021 End : 03-Oct-2021 Inactive Start: 08-09-2021 take 1 tablet by lizzie th once daily Norvasc 5 MG Oral Tablet 1 (one) Tablet qd for 0 days Quantity: 60 {Tablet} Refills: 0 Ordered: 10-Aug-2021 Keri Johnson CMA Start : 09-Aug-2021 Active Start: 05-09-2017 AMLODIPINE BES YLATE 5 MG TABS daily AMLODIPINE BESYLATE [id number] Michael Michel MD Gqqjrwbevgxb-Kbcflo-Ahsejvpm 187.5-150-79.2 mg capsule (8 sources) Start: 03-03-2023 End: 08-17-2024 Yrniwjbzmemb-Wgtvgn-Sfrwpjma 187.5-150-79.2 mg capsule Discontinued 1 NMA PO DAILY March 03, 2023 12:00am August 17, 2024 1:58pm artery cleanse (20 sources) Start: 11-20-2023 End: 08-17-2024 artery cleanse Discontinued 1 NMA PO DAILY November 20, 2023 12:00am August 17, 2024 1:58pm Start: 04-01-2022 End: 05-23-2022 artery cleanse Discontinued 1 {tbl} PO DAILY April 01, 2022 12:00am May 23, 2022 3:05pm arteries Start: 04-01-2022 End: 05-23-2022 artery cleanse Discontinued [...] Tablet Discontinued 1500 mg PO DAILY 0 0 June 03, 2022 1:00am July 02, 2022 12:58pm Start: 07-29-2014 End: 06-03-2022 take 1 tablet by mouth once daily Ascorbic Acid (Vitamin C) 500 MG tablet Discontinued 500 mg PO DAILY July 29, 2014 1:00am June 03, 2022 8:09pm supplement Start: 07-29-2014 End: 08-17-2024 take 1 tablet by mouth twice daily Ascorbic Acid (Vitamin C) 500 mg tablet Discontinued 500 mg PO TWICE A DAY July 02, 2022 12:58pm August 17, 2024 1:58pm supplement Start: 07-29-2014 End: 07-02-2022 take 1500 mg by mouth once daily Ascorbic Acid (Vitamin C) Discontinued 1500 MG PO DAILY 0 June 03, 2022 1:00am July 02, 2022 12:58pm Vitamin C Inacti ve Vitamin C Active aspirin 81 mg chewable tablet (20 sources) Platelet Aggregation Inhibitor, Nonsteroidal Anti-inflammatory Drug Start: 05-09-2017 ASPIRIN 81 MG TAB S 1 tablet every other day ASPIRIN [id number] Michael Michel MD Start: 07-29-2014 End: 11-20-2023 Aspirin 81 mg tablet,chewabl e Discontinued 81 mg PO .MW March 03, 2023 1:40pm November 20, 2023 3:34pm [facility] Start: 07-29-2014 End: 06-26-2018 atorvastatin 20 mg oral tablet (20 sources) HMG-CoA Reductase Inhibitor Start: 05-07-2023 End: 03-17-2024 take 1 tablet by mouth at bedtime Atorvastatin 20 mg tablet Discontinued 20 mg PO AT BEDTIME 30 December 19, 2023 11:06am March 17, 2024 12:58pm Start: 04-08-2023 End: 05-07-2023 take 1 tablet by mouth at bedtime Atorvastatin 40 mg tablet Discontinued 40 mg PO AT BEDTIME 30 April 08, 2023 12:00am May 07, 2023 5:20pm Start: 05-09-2017 ATORVASTATIN C ALCIUM 10 MG TABS daily ATORVASTATIN CALCIUM [id number] Michael Michel MD azithromycin 250 mg oral tablet (4 sources) Macrolide Antimicrobial Start: 01-31-2023 Zithromax 250 mg oral tablet 2 (two) tablet today then 1 qd fo 4 days for 0 days Quantity: 6 {Tablet} Refills: 0 Ordered: 31-Jan-2023 Emily Jolly DO Start : 31-Jan-2023 Active Berberine-Herbal Comb No.18 capsule (8 sources) Start: 04-08-2023 End: 08-17-2024 Berberine-Herbal Comb No.18 capsule Discontinued NMA PO April 08, 2023 12:00am August 17, 2024 1:57pm CALCIUM CARB-CHOLECALCIFEROL TABS (2 sources) Start: 05-09-2017 take 1 tablet by mouth every twenty-four hours CALCIUM PLUS VITAMIN D3 TABS CALCIUM CARB-CHOLECALCIFE ROL TABS [id number] Michael Michel MD calcium carbonate 1250 mg [...] Active Calcium- Vitamin D 200U Active cardio [place] (8 sources) Start: 04-28-2024 End: 08-17-2024 cardio [place] Discontinued PO April 28, 2024 12:00am August 17, 2024 1:57pm carvedilol 12.5 mg oral tablet (20 sources) alpha-Adrenergi c Yenny, beta-Adrenergic Yenny Start: 04-28-2024 End: 05-03-2024 take 1 tablet by mouth twice daily at mealtime Carvedilol (Coreg) 12.5 mg tablet Discontinued 12.5 mg PO TWICE A DAY 60 11 April 28, 2024 12:00am May 03, 2024 3:18pm must administer with a meal/food Start: 05-18-2022 End: 07-07-2022 take 1 tablet by mouth twice daily Carvedilol 6.25 mg tablet Discontinued 6.25 mg PO TWICE A DAY May 23, 2022 6:00pm July 07, 2022 2:57pm blood pressure cephalexin 500 mg oral capsule (20 sources) [...] 11, 2022 1:00am August 17, 2024 1:57pm SUPPLEMENT Start: 04-01-2022 End: 05-23-2022 take 1 capsule by mouth once daily Cinnamon Bark (Cinnamon) 500 mg capsule Discontinued 500 mg PO DAILY April 01, 2022 12:00am May 23, 2022 3:05pm SUPPLEMENT Start: 06-26-2018 End: 09-30-2018 take 1 capsule by mouth once daily Cinnamon Bark 500 mg capsule Discontinued 500 mg PO DAILY 0 June 26, 2018 1:00am September 30, 2018 9:48am Cinnamon bark In active Cinnamon bark Ac tive CINNAMON CAPS (2 sources) Non-Standardized Food Allergenic Extract Start: 05-09-2017 take 1 capsule by mouth every twenty-four hours CINNAMON CAPS CINNAMON CAPS [id number] Michael Michel MD ciprofloxacin 500 mg oral tablet (20 sources) Quinolone Antimicrobial Start: 05-18-2022 End: 05-23-2022 take 1 tablet by mouth twice daily Ciprofloxacin Hcl 500 mg Tablet Discontinued 500 mg PO TWICE A DAY 14 0 May 18, 2022 12:00am May 23, 2022 3:06pm gil santiago (20 sources) Start: 04-01-2022 End: 05-23-2022 circu max gold Discontinued 1 NMA PO DAILY April 01, 2022 12:00am May 23, 2022 3:05pm SUPPLEMENT Start: 04-01-2022 End: 05-23-2022 circu max gold [...] gold A ctive circu max gold powder (8 sources) Start: 11-20-2023 End: 08-17-2024 circu max gold powder Discontinued 1 tbsp PO DAILY November 20, 2023 12:00am August 17, 2024 1:57pm Mix with water cloNIDine hydrochloride 0.1 mg oral tablet (20 sources) Central alpha-2 Adrenergic Agonist Start: 11-21-2023 End: 03-17-2024 Clonidine Hcl 0.1 mg tablet Discontinued 0.1 mg PO .COMPLEX 90 November 21, 2023 11:05am March 17, 2024 1:01pm 0.1 mg orally Pt is to decrease to once a day for 1 week, then every other day for 1 week, then STOP; Start: 07-08-2023 End: 11-21-2023 take 1 tablet by mouth twice daily Clonidine Hcl 0.1 mg tablet Discontinued 0.1 mg PO TWICE A DAY 90 October 16, 2023 10:00am November 21, 2023 11:06am Start: 03-03-2023 End: 07-08-2023 Clonidine (Bkkeubhs-Auk-3) 0 .1 mg/24 hr patch weekly Discontinued 1 NMA TD EVERY WEEK 4 6 [place] 14th, 2023 12:00am July 08, 2023 12:09pm Start: 03-03-2023 End: 07-08-2023 Clonidine (Rkfflefn-Vcy-9) 0 .1 mg/24 hr patch weekly Discontinued 1 PATCH TD EVERY WEEK March 03, 2023 12:00am July 08, 2023 12:09pm Start: 09-16-2022 take 1 tablet by lizzie once daily at bedtime cloNIDine HCL 0.1 [...] SBP>160 x 2 readings 30 min apart 30 0 July 17, 2022 1:53pm September 04, 2022 4:15pm do not use more than twice daily Start: 05-10-2022 End: 06-10-2022 take 1 tablet by mouth at bedtime Clonidine Hcl 0.1 mg tablet Discontinued 0.1 mg PO AT BEDTIME May 15, 2022 12:00am June 03, 2022 8:10pm BP Start: 09-30-2018 End: 05-22-2020 Clonidine Hcl 0.1 MG tablet Discontinued 0.1 mg PO EVERY 6 HOURS NEEDED as needed for Systolic BP > 160 0 September 30, 2018 12:00am May 22, 2020 [...] 17, 2024 12:59pm August 17, 2024 1:57pm SUPPLEMENT Start: 03-17-2024 End: 08-17-2024 take 1 [tsp_us] by mouth once daily Colloidal Silver Discontinued 1 tsp PO DAILY March 17, 2024 12:59pm August 17, 2024 1:57pm Start: 06-11-2022 End: 03-17-2024 take 1 [tsp_us] by mouth once daily Colloidal Silver Discontinued 2 tsp PO DAILY June 11, 2022 1:00am March 17, 2024 1:03pm SUPPLEMENT Start: 06-11-2022 End: 03-17-2024 take 1 [tsp_us] [...] ARTERY CLEANSE Active COMPOUNDED PRESCRIPTION CARD IO [facility] (20 sources) COMPOUNDED PRESC RIPTION CARDIO [facility] Inactive COMPOUNDED PRESC RIPTION CARDIO [facility] Active Curcumin-Phosphatidylcholine 500 mg capsule (8 sources) Start: 04-08-2023 End: 08-17-2024 Curcumin-Phosphatidylcholine 500 [...] A DAY as needed for Muscle Spasm 10 May 12, 2020 12:00am November 09, 2021 [...] 20 mg/ml oral solution (20 sources) Uncompetitive V-cjtsnz-S-aspartate Receptor Antagonist, Sigma-1 Agonist Start: 10-01-19 End: 05-22-20 take 1 mL by mouth every six hours as needed for cough Dextromethorphan-Gu aifenesin 10 ML syrup Discontinued 5 mL PO EVERY 6 HOURS NEEDED as needed for COUGH 0 September 30, 2018 12:00am May 22, 2020 [...] 14, 2022 2:43am July 17, 2022 1:50pm bp famotidine 20 mg oral tablet (20 sources) Histamine-2 Receptor Antagonist Start: 06-07-2022 End: 09-04-2022 take 1 tablet by mouth once daily Famotidine (Pepcid) 20 mg Tablet Discontinued 20 mg PO DAILY July 14, 2022 1:00am September 04, 2022 4:12pm gabapentin 100 mg oral capsule (8 sources) Anti-epileptic Agent Start: 11-20-2023 End: 03-17-2024 take 1 capsule by mouth three times daily Gabapentin 100 mg capsule Discontinued 100 mg PO THREE TIMES A DAY November 20, 2023 12:00am March 17, 2024 12:58pm Grape Seed Extract (19 sources) Start: 03-03-2023 End: 08-17-2024 take 1 [...] Discontinued 1200 mg PO TWICE A DAY 0 September 30, 2018 12:00am May 22, 2020 [...] 23, 2022 6:00pm July 07, 2022 2:58pm blood pressure Hold for SBP less than 130 mmHg Start: 05-18-2022 End: 05-23-2022 take 2 tablets by mouth three times daily Hydralazine 50 mg Tablet Discontinued 100 mg PO THREE TIMES A DAY 90 0 May 18, 2022 12:00am May 23, [...] Quantity: 30 {Tablet} Refills: 3 Ordered: 10-May-2022 Alton Alondra MCKINNEY Start : 10-May-2022 Active Start: 05-10-2022 hydrALAZINE [...] 30 {Tablet} Refills: 3 Ordered: 19-Apr-2022 Lukasz PORTILLO Martina LukaszMartina luis DO Start : 19-Apr-2022 Active Start: 03-18-2022 End: 05-18-2022 take 2 tablets by mouth at bedtime Hydralazine 25 mg tablet Discontinued 50 mg PO AT BEDTIME March 18, 2022 10:24am May 18, 2022 10:35am HTN Start: 02-11-2022 take 1 tablet by lizzie th once daily hydrALAZINE HCl 50 MG Oral Tablet 1 (one) Tablet qd for 0 days Quantity: 30 {Tablet} Refills: 3 Ordered: 11-Feb-2022 Rik Emily PORTILLO Start : 11-Feb-2022 Active Start: 11-09-2021 End: [...] Quantity: 30 {Tablet} Refills: 3 Ordered: 26-Sep-2021 LukaszMartina luis DO LukaszPito luis DOeen Start : 26-Sep-2021 Active Start: 08-09-2021 take [...] mg tablet Discontinued 12.5 mg PO DAILY 30 0 May 18, 2022 12:00am May 23, 2022 3:11pm On Hold: As patient has acute kidney injury Start: 05-09-2017 HYDROCHLOROTHI AZIDE 12.5 MG TABS daily HYDROCHLOROTHIAZIDE [id number] Michael Michel MD Start: 07-29-2014 End: 07-31-2014 [...] 23, 2022 6:00pm June 03, 2022 8:10pm Diabetes Please contact the information source for Protocol details. Start: 05-23-2022 End: 06-03-2022 Insulin Lispro (Humalog Kwik pen Insulin) 100 unit/mL insulin pen Discontinued 0 unit SC THREE TIMES DAILY BEFORE MEALS May 23, 2022 6:00pm June 03, 2022 8:10pm Start: 05-23-2022 End: 06-03-2022 Start: 09-30-2018 End: 05-22-2020 Insulin Lispro 100 UNIT/ML i nsulin pen Discontinued 0 U SQ BEFORE MEALS AND AT BEDTIME 0 September 30, 2018 12:00am May 22, 2020 2:56pm Please contact the information source for Protocol details. Start: 09-30-2018 End: 05-22-2020 Insulin Lispro Discontinued 0 UNIT SQ BEFORE MEALS AND AT BEDTIME September 30, 2018 12:00am May 22, 2020 2:56pm lidocaine 0.05 mg/mg medicated patch (20 sources) Antiarrhythmic, Amide Local Anesthetic Start: 05-12-2020 End: 11-09-2021 Lidocaine 1 PATCH patch Discontinued 1 NMA TOPICAL DAILY 7 0 May 12, 2020 12:00am November 09, 2021 [...] Disc ontinued 30 mg PO DAILY 45 1 July 17, 2022 1:00am February 28, 2023 6:08pm Start: 07-02-2022 End: 02-28-2023 Start: 06-21-2022 End: 07-17-2022 take 1 tablet by mouth once daily Lisinopril 20 mg tablet Discontinued 20 mg PO DAILY July 02, 2022 1:00am July 17, 2022 1:51pm BLOOD PRESSURE Start: 06-03-2022 End: 06-18-2022 take 1 tablet by mouth once daily Lisinopril 20 mg Tablet Discontinued 20 mg PO DAILY 30 30 0 June 03, 2022 1:00am June 18, 2022 4:15pm Start: 06-28-2020 End: 11-09-2021 Lisinopril 20 mg tablet Disc ontinued 20 mg PO June 28, 2020 1:00am November 09, 2021 10:19am Start: 06-28-2020 End: 06-03-2022 take 1 tablet by mouth twice daily Lisinopril 20 mg tablet Discontinued 20 mg PO TWICE A DAY November 09, 2021 10:16am June 03, 2022 8:08pm HTN On Hold: Hold until serum creatinine on [...] Comment on above: Mail order. Mail order. New orde r liver supplement (20 sources) Start: 04-01-2022 End: 04-28-2024 liver supplement Discontinued 1 NMA PO AT BEDTIME April 01, 2022 12:00am April 28, 2024 2:30pm SUPPLEMENT Start: 04-01-2022 End: 04-28-2024 liver supplement Discontinue d 1 NMA PO AT BEDTIME April 01, [...] PO DAILY NEEDED as needed for Constipation 0 September 30, 2018 12:00am November 09, 2021 [...] 26, 2018 1:00am May 18, 2022 10:35am HTN Start: 06-26-2018 End: 05-18-2022 take 25 mg [...] 01, 2024 9:50am October 04, 2024 3:53pm [place]-3 (20 sources) [place]-3 Inactive [place]-3 Active [place]-3 Fatty Acids-Fish Oil 1 EACH capsule (8 sources) Start: 07-29-2014 End: 03-03-2023 [place]-3 Fatty Acids-Fish Oil 1 EACH capsule Discontinued 1 NMA PO DAILY July 29, 2014 1:00am March 03, 2023 1:44pm SUPPLEMENT Start: 07-29-2014 End: 03-03-2023 [place]-3 Fatty Acids-Fish Oil 1 EACH capsule Discontinued 1 NMA PO DAILY July 29, 2014 1:00am March 03, 2023 1:44pm [place]-3 Fatty Acids-Fish Oil 300-1,000 mg capsule (8 sources) Start: 03-03-2023 End: 08-17-2024 [place]-3 Fatty Acids-Fish Oil 300-1,000 mg capsule Discontinued 1 NMA PO DAILY March 03, 2023 1:40pm August 17, 2024 1:57pm SUPPLEMENT Start: 03-03-2023 End: 08-17-2024 [place]-3 Fatty Acids-Fish Oil 300-1,000 mg capsule Discontinued 1 NMA PO DAILY March 03, 2023 1:40pm August 17, 2024 1:57pm ondansetron 4 mg disintegrating oral tablet (20 sources) Serotonin-3 Receptor Antagonist Start: 06-07-2022 End: 01-31-2023 take 1 tablet by mouth every four to six hours as needed ondansetron 4 mg oral Tablet,disintegrating 1 (one) Tablet 1 tab q4-6 hrs prn for 0 days Quantity: 60 {Tablet} Refills: 3 Ordered: 31-Jan-2023 Fast DO, Emily A Start : 07-Jun-2022 End : 31-Jan-2023 Inactive oseltamivir 30 mg oral capsule (20 sources) Neuraminidase Inhibitor Start: 09-30-2018 End: 05-22-2020 take 1 capsule by mouth twice daily Oseltamivir 30 MG capsule Discontinued 30 mg PO TWICE A DAY 8 0 September 30, 2018 12:00am May 22, 2020 2:57pm pantoprazole 40 mg delayed release oral tablet (20 sources) Proton Pump Inhibitor Start: 07-17-2022 End: 12-02-2022 take 1 tablet by mouth once daily Pantoprazole 40 mg Tablet,Delayed Release (Dr/Ec) Discontinued 40 mg PO DAILY 30 July 17, 2022 1:00am December 02, 2022 1:54pm polyethylene glycol 3350 22609 mg powder for oral solution (20 sources) Osmotic Laxative Start: 07-02-2022 End: 12-02-2022 take 17 g by mouth at bedtime Polyethylene Glycol 3350 17 gram Powder In Packet Discontinued 17 g PO AT BEDTIME July 02, 2022 1:00am December 02, 2022 1:53pm STOOL Start: 07-02-2022 potassium chloride 20 meq extended release oral tablet (20 sources) Start: 07-07-2022 End: 12-02-2022 take 1 tablet by mouth once daily Potassium Chloride 20 mEq tablet extended release Discontinued 20 meq PO DAILY July 14, 2022 2:43am December 02, 2022 1:53pm supplement On Hold: Restart on 07/18/2022 Start: 10-10-2021 [...] tablet Discontinued 20 mg PO DAILY@0800 5 0 September 30, 2018 12:00am May 22, 2020 2:57pm Start: 08-27-2017 End: 06-26-2018 take 4 tablets by mouth once daily in the morning Prednisone 10 MG tablet Discontinued 10 mg PO TWICE A DAY 6 0 August 27, 2017 1:00am June 26, 2018 [...] 01, 2022 12:00am May 23, 2022 3:05pm SUPPLEMENT Start: 04-01-2022 End: 05-23-2022 take 1 [tsp_us] by mouth once daily silver Discontinued 2 tsp PO DAILY March 31, 2022 11:00pm May 23, 2022 2:05pm Start: 04-01-2022 End: 05-23-2022 take 1 [tsp_us] by mouth once daily silver Discontinued 2 tsp PO DAILY April 01, 2022 12:00am May 23, 2022 3:05pm Start: 04-01-2022 take 1 [tsp_us] by m outh once daily silver Active 2 tsp PO [...] on above: suggested PT L shoulder pain sugg ested PT, send to ortho who rec surgery or pain managment, pt chose pain managment Mycoses (20 sources) Onychomycosis due to dermatophyte ; Translations: [Tinea unguium] Episodic Nausea and vomiting (20 sources) Nausea; Translations: [Nausea] Episodic Nonmalignant breast conditions (20 sources) Cellulitis of breast; Translations: [Mastitis without abscess] Episodic Nonspecific chest pain (12 sources) Chest pain; Translations: [Chest pain, unspecified] [...] toe(s)] 06-12-2022 Episodic Other connective tissue disease (12 sources) Swelling of bilateral lower limbs; Translations: [Other specified soft tissue disorders] 10-23-2023 Episodic Other connective tissue disease (2 sources) Pain in left lower limb; Translations: [Pain in left leg] 01-01-2025 Episodic Other endocrine disorders (20 sources) Primary [...] [Hypoxemia] 05-26-2022 Episodic Other lower respiratory disease (12 sources) Dyspnea; Translations: [Shortness of breath] 10-23-2023 [...] Chronic Other nutritional; endocrine; and metabolic disorders (17 sources) Obesity; Translations: [Obesity, unspecified] 06-03-2023 Chronic Other nutritional; endocrine; and metabolic disorders (5 sources) Obesity, unspecified; Translations: [Obesity, unspecified] 06-03-2023 Chronic Other nutritional; endocrine; and metabolic disorders (20 sources) Adult failure to thrive syndrome; Translations: [Adult failure to thrive] 07-25-2022 Episodic Other nutritional; endocrine; and metabolic disorders (6 sources) Adult failure to thrive; Translations: [Adult failure to thrive] Episodic Other skin disorders (8 sources) Eruption; Translations: [Rash and other nonspecific [...] Translations: [Postmenopausal] 04-19-2022 Episodic Residual codes; unclassified (10 sources) Edema; Translations: [Edema, unspecified] 12-16-2024 Episodic [...] Translations: [Lumbago] 09-15-2020 Episodic Superficial injury; contusion (16 sources) Contusion of right foot; Translations: [Contusion [...] disease (14 sources) Hypoxemia; Translations: [Hypoxemia] Episodic Other screening for suspected conditions (not mental disorders or infectious disease) (20 sources) Mammography abnormal; Translations: [Abnormal mammogram] Onset: 10-14-2024 09-15-2020 Episodic Comment on above: declines follow up d iscussed risks and benefits. Unclassified (20 sources) Abortions/Miscarriage s; Translations: [Abortions/Miscarriag [...] Test Name Value Interpretation Reference Range Facility Cardiovascular stress test r eportOrdered By: Brent Kelley on 01-12-2025 Study report [facility] [address] [facility] [place] [address] MR#: [id number] Acct: [id number] Name: DEBBIE MIRELES Rep #: [id number] : 1935 89 From: Brent Kelley MD Primary Care: Dr. Martina Lal, Sta tus: REG CLI Referring Dr: Kimberly Hernandez Sex : F C Stress Test Report Pharmacologic myocardial perfusion stress test. 89-year-old lady for preop evaluation for carotid surgery Resting EKG demonstrates sinus rhythm with a rate of 74 with a rate of 74 bpm. Resting blood pressure is 158/70 mmHg. 0.4 mg of regadenoson was infused per usual protocol followed by rapid intravenous saline flush injection. ContinuousEKG monitoring was performed. The maximum heart rate was 88 bpm which was 66% of max impacted heart rate the maximum workload was 1 metabolic equivalent. At rest there were no ST or T wave changes noted to suggest ischemia and at peak infusion nonspecific ST changes were noted which did not meet the criteria for ischemia. No clinical angina is noted. The final blood pressure was 152/60 mmHg. Myocardial perfusion protocol. 14.3 mCi of technetium 99m sestamibi was injected at rest. 0.4 mg of regadenoson was infused per usual protocol. At peak infusion 44.1 mCi of technetium 99m sestamibi was injected stress images were obtained stress and rest images were reconstructed and compared in the short axis vertical long and horizontal long axis. Gated images were also obtained. Perfusion SPECT analysis: Review of the stress images demonstrate normal uptake of tracer noted in all areas of the myocardium. The resting images similar demonstrated normal uptake of tracer noted in all areas of the myocardium. No areas of reversibility are noted to suggest ischemia and no previous infarct is noted. Gated SPECT analysis: The gated ejection fraction is 79%. Conclusion: Normal pharmacologic myocardial perfusion stress test. Preserved ejection fraction. 01/12/251947 Date _ Brent Kelley MD CC: Dr. Martina Lal DO; PADMINI Javier ~ Date Dictated: 01/12/251945 Date Transcribed: 01/12/251945 Forging Press Setter Up: [place] Signed [facility] Work Phone: Stress Reporton 01-12-2025 Stress Report [facility] [address] [place] [address] MR#: [id number] Acct: [id number] Name: DEBBIE MIRELES Rep #: [id number] : 1935 89 From: Brent Kelley MD Primary Care: Dr. Martina Lal DO Status: REG CLI Referring Dr: Kimberly Hernandez Sex: F C Stress Test Report Pharmacologic myocardial perfusion stress test. 89-year-old lady for preop evaluation for carotid surgery Resting EKG demonstrates sinus rhythm with a rate of 74 with a rate of 74 bpm. Resting blood pressure is 158/70 mmHg. 0.4 mg of regadenoson was infused per usual protocol followed by rapid intravenous saline flush injection. Continuous EKG monitoring was performed. The maximum heart rate was 88 bpm which was 66% of max impacted heart rate the maximum workload was 1 metabolic equivalent. At rest there were no ST or T wave changes noted to suggest ischemia and at peak infusion nonspecific ST changes were noted which did not meet the criteria for ischemia. No clinical angina is noted. The final blood pressure was 152/60 mmHg. Myocardial perfusion protocol. 14.3 mCi of technetium 99m sestamibi was injected at rest. 0.4 mg of regadenoson was infused per usual protocol. At peak infusion 44.1 mCi of technetium 99m sestamibi was injected stress images were obtained stress and rest images were reconstructed and compared in the short axis vertical long and horizontal long axis. Gated images were also obtained. Perfusion SPECT analysis: Review of the stress images demonstrate normal uptake of tracer noted in all areas of the myocardium. The resting images similar demonstrated normal uptake of tracer noted in all areas of the myocardium. No areas of reversibility are noted to suggest ischemia and no previous infarct is noted. Gated SPECT analysis: The gated ejection fraction is 79%. Conclusion: Normal pharmacologic myocardial perfusion stress test. Preserved ejection fraction. 01/12/251947 Date Brent Kelley MD CC: Dr. Martina Lal, DO; PADMINI Javier Date Dictated: 01/12/251945 Date Transcribed: 01/12/251945 Forging Press Setter Up: [place] Signed Normal [facility] Microalb:Creat Ratio,Random URon 01-06-2025 MALB:CREAT 40.5 mg/g CRE Normal [facility] Comment on above: Result Comment: AMENDED REPORT 01/06/25 0800 MALB:CREAT previously reported as: 404.6 mg/g CRE Performed By: #### L 501.4700, L501.9520, L501.0900, L506.1001, L501.2300, L500.4050, L100.0100, L502.0250, L500.4100, L400.2010 ####[facility] [address] [place], [address] Urgent Care Visit Reporton 0 01-01-2025 Urgent Care Visit Report [facility] [address] , [address] [place], [place] [address] OFFICE VISIT Date of Service: 01/01/25 MR#: [id number] Acct: [id number] Name: DEBBIE MIRELES Rep #: [id number] : 1935 Provider: PADMINI Lutz Age/Sex: 89/F Location: [facility] Status: Signed Intake Vital Signs 12/24/24 09:29 01/01/25 12:21 Height 5 ft 2 in BP 144/64 H Blood Pressure Location Lt brachial Position Sitting Respiration 17 Pulse 85 Pulse Source NIBP Temp 98.2 F Temp Source Oral Pulse Oximetry (%) 96 Oxygen Delivery Method room air Intake Visit Reasons: CONCERN FOR CELLULITIS Chief Complaint: left lower leg pain [place] Operator Required: No Is patient in pain?: Yes [...] to see due to location of pain. [facility] Medical History Obesity Left carotid artery stenosis [...] healthy appear (more content not included)... Normal [facility] Absolute lymphocyte countOrd ered By: Mackenzie Vance on 12-24-2024 Lymphocytes Auto (Unsp spec) [#/Vol] 1.58 10*3/uL 0.83-4.51 [facility] Absolute neutrophil countOrd ered By: Mackenzie Vance on 12-24-2024 Neutrophils (Bld) [#/Vol] 11.7 10*3/uL High 2.0-7.7 [facility] Anion gap in Serum or Plasma Ordered By: Mackenzie Vance on 12-24-2024 Anion gap [Moles/Vol] 11 mmol/L 5-15 [facility] Automated lymphocyte count a s percentage of total leukocytesOrdered By: Mackenzie Vance on 12-24-2024 Lymphocytes/100 WBC Auto (Unsp spec) 10.4 % Low 19-41 [facility] BUN/creatinine ratioOrdered By: Mackenzie Vance on 12-24-2024 Urea nitrogen/Creatinine [Mass ratio] 19.0 mg/mg 10-20 [facility] Basophil percentageOrdered B y: Mackenzie Vance on 12-24-2024 Basophils/100 WBC (Bld) 0.5 % 0-[address] [facility] Bilirubin, totalOrdered By: Mackenzie Vance on 12-24-2024 Bilirubin [Mass/Vol] 1.23 mg/dL 0.00-1.30 [facility] CBC W/Diff, Automatedon Absolute Lymph 1.58 X10 3/uL Normal 0.83-4.51 [facility] Comment on above: Performed By: #### L 500.4050, L100.0100 ####[facility] [address] [place], [address] Absolute Neut 11.7 X10 3/uL High 2.0-7.7 [facility] Comment on above: Performed By: #### L 500.4050, L100.0100 ####[facility] [address] [place], [address] Basophils/100 WBC (Bld) 0.5 % Normal 0-[address] [facility] Comment on above: Performed By: #### L 500.4050, L100.0100 ####[facility] [address] [place], [address] Eosinophils/100 WBC (Bld) 1.6 % Normal 0-5 [facility] Comment on above: Performed By: #### L 500.4050, L100.0100 ####[facility] [address] [place], [address] Erythrocyte distribution width (RBC) [Ratio] 13.1 % Normal 11.6-14.6 [facility] Comment on above: Performed By: #### L 500.4050, L100.0100 ####[facility] [address] [place], [address] Hematocrit (Bld) [Volume fraction] 38.0 % Normal 37-47 [facility] Comment on above: Performed By: #### L 500.4050, L100.0100 ####[facility] [address] [place], [address] Hemoglobin (Bld) [Mass/Vol] 13.0 g/dL Normal 12.0-15.0 [facility] Comment on above: Performed By: #### L 500.4050, L100.0100 ####[facility] [address] [place], [address] IG% 0.300 Normal 0.0-0.9 [facility] Comment on above: Result Comment: IG% - Immature Granulocytes (promyelocytes, myelocytes and metamyelocytes) > 1% indicates that a LEFT SHIFT is Present. Performed By: #### L 500.4050, L100.0100 ####[facility] [address] [place], [address] Lymphocytes/100 WBC (Bld) 10.4 % Low 19-41 [facility] Comment on above: Performed By: #### L 500.4050, L100.0100 ####[facility] [address] [place], [address] MCH (RBC) [Entitic mass] 30.2 pg Normal 27.0-32.0 [facility] Comment on above: Performed By: #### L 500.4050, L100.0100 ####[facility] [address] [place], [address] MCHC (RBC) [Mass/Vol] 34.2 g/dL Normal 32-36 [facility] Comment on above: Performed By: #### L 500.4050, L100.0100 ####[facility] [address] [place], [address] MCV (RBC) [Entitic vol] 88.2 fL Normal 81-99 [facility] Comment on above: Performed By: #### L 500.4050, L100.0100 ####[facility] [address] [place], [address] Monocytes/100 WBC (Bld) 10.0 % Normal 0-10 [facility] Comment on above: Performed By: #### L 500.4050, L100.0100 ####[facility] [address] [place], [address] Neutrophils/100 WBC (Bld) 77.2 % High 47-70 [facility] Comment on above: Performed By: #### L 500.4050, L100.0100 ####[facility] [address] [place], [address] Nucleated RBC (Bld) [#/Vol] 0 10*3/uL Normal 0-5 [facility] Comment on above: Performed By: #### L 500.4050, L100.0100 ####[facility] [address] [place], [address] Platelet mean volume (Bld) [Entitic vol] 10.1 fL Normal 6.2-12.0 [facility] Comment on above: Performed By: #### L 500.4050, L100.0100 ####[facility] [address] [place], [address] Platelets (Bld) [#/Vol] 248 10*3/uL Normal 150-450 [facility] Comment on above: Performed By: #### L 500.4050, L100.0100 ####[facility] [address] [place], [address] RBC (Bld) [#/Vol] 4.31 10*6/uL Normal 4.2-5.4 [facility] Comment on above: Performed By: #### L 500.4050, L100.0100 ####[facility] [address] [place], [address] RDW SD 42.7 fl Normal 35.1-43.9 [facility] Comment on above: Performed By: #### L 500.4050, L100.0100 ####[facility] [address] [place], [address] WBC (Bld) [#/Vol] 15.1 10*3/uL High 4.4-11.0 [facility] Comment on above: Performed By: #### L 500.4050, L100.0100 ####[facility] [address] [place], [address] Carbon dioxide, total [Moles /volume] in Central venous bloodOrdered By: Mackenzie Vance on 12-24-2024 CO2 [Moles/Vol] 23.1 mmol/L 21.0-32.0 [facility] Chest PA and Lateralon 12-24 Chest PA and Lateral [facility] [address] [place] [address] Chest PA and Lateral MR#: [id number] Acct: [id number] Name: DEBBIE MIRELES Jana Rep #: [id number] : 1935 F 89 From: Floyd Chi PCP: Dr. Martina Lal, Status: DEP AMB Study: Chest PA and Lateral Date of Exam: 12/24/24 Exam# [id number] Ordering Dr: Mackenzie Vance SECTION CHIEF-C PROCEDURE: CHEST PA AND LATERAL 12/24/2024 REASON [...] acute osseous process is seen. Reading Location: [address] CC: SECTION CHIEF-C Mackenzie Vance; Dr. Martina Lal DO Forging Press Setter Up: Signed Normal [facility] Chloride assayOrdered By: Eliana Vance on 12-24-2024 Chloride [Moles/Vol] 100 mmol/L 98-108 [facility] Comprehensive Metabolic Prof ilon 12-24-2024 Albumin [Mass/Vol] 3.6 g/dL Normal 3.4-4.8 [facility] Comment on above: Performed By: #### L 500.4050, L100.0100 ####[facility] [address] [place], [address] Albumin/Globulin [Mass ratio] 1.0 {ratio} Normal 0.9-2.4 [facility] Comment on above: Performed By: #### L 500.4050, L100.0100 ####[facility] [address] [place], [address] ALK PHOS 80 U/L Normal 35-104 [facility] Comment on above: Performed By: #### L 500.4050, L100.0100 ####[facility] [address] [place], [address] ALT [Catalytic activity/Vol] 16 U/L Normal <=34 [facility] Comment on above: Performed By: #### L 500.4050, L100.0100 ####[facility] [address] [place], [address] AST [Catalytic activity/Vol] 18 U/L Normal <=31 [facility] Comment on above: Performed By: #### L 500.4050, L100.0100 ####[facility] [address] [place], [address] Bilirubin [Mass/Vol] 1.23 mg/dL Normal 0.00-1.30 [facility] Comment on above: Performed By: #### L 500.4050, L100.0100 ####[facility] [address] [place], [address] BUN/CRE 19.0 RATIO Normal 10-20 [facility] Comment on above: Performed By: #### L 500.4050, L100.0100 ####[facility] [address] [place], [address] Calcium [Mass/Vol] 10.0 mg/dL Normal 7.6-11.0 [facility] Comment on above: Performed By: #### L 500.4050, L100.0100 ####[facility] [address] [place], [address] Chloride [Moles/Vol] 100 mmol/L Normal 98-108 [facility] Comment on above: Performed By: #### L 500.4050, L100.0100 ####[facility] [address] [place], [address] CO2 [Moles/Vol] 23.1 mmol/L Normal 21.0-32.0 [facility] Comment on above: Performed By: #### L 500.4050, L100.0100 ####[facility] [address] [place], [address] Creatinine [Mass/Vol] 1.56 mg/dL High 0.70-1.20 [facility] Comment on above: Performed By: #### L 500.4050, L100.0100 ####[facility] [address] [place], [address] GAP 11 Normal 5-15 [facility] Comment on above: Performed By: #### L 500.4050, L100.0100 ####[facility] [address] [place], [address] GFR/1.73 sq M.predicted among non-blacks MDRD (S/P/Bld) [Vol rate/Area] 32 mL/min/{1.73_m2} Low >60 [facility] Comment on above: Result Comment: mL/m in/1.73m2 CKD-EPI Creatinine Equation (2020) Performed By: #### L 500.4050, L100.0100 ####[facility] [address] [place], [address] Globulin (S) [Mass/Vol] 3.5 g/dL Normal 2.2-4.2 [facility] Comment on above: Performed By: #### L 500.4050, L100.0100 ####[facility] [address] [place], [address] Glucose [Mass/Vol] 178 mg/dL High 70-99 [facility] Comment on above: Performed By: #### L 500.4050, L100.0100 ####[facility] [address] [place], [address] Potassium [Moles/Vol] 4.4 mmol/L Normal 3.3-5.1 [facility] Comment on above: Performed By: #### L 500.4050, L100.0100 ####[facility] [address] [place], [address] Sodium [Moles/Vol] 135 mmol/L Normal 133-145 [facility] Comment on above: Performed By: #### L 500.4050, L100.0100 ####[facility] [address] [place], [address] T PROT 7.1 g/dL Normal 5.9-8.4 [facility] Comment on above: Performed By: #### L 500.4050, L100.0100 ####[facility] [address] [place], [address] Urea nitrogen [Mass/Vol] 30 mg/dL High 4-19 [facility] Comment on above: Performed By: #### L 500.4050, L100.0100 ####[facility] [address] [place], [address] Eosinophil percentageOrdered By: Mackenzie Vance on 12-24-2024 Eosinophils/100 WBC (Bld) 1.6 % 0-5 [facility] Erythrocyte distribution wid th ratioOrdered By: Mackenzie Vance on 12-24-2024 Erythrocyte distribution width (RBC) [Ratio] 13.1 % 11.6-14.6 [facility] Erythrocyte distribution wid th standard deviationOrdered By: Mackenzie Vance on 12-24-2024 Erythrocyte distribution width (RBC) [Ratio] 42.7 fl 35.1-43.9 [facility] Glomerular filtration rate ( GFR) estimation/1.73 sq m using serum, plasma, or whole bOrdered By: Mackenzie Vance on 12-24-2024 GFR/1.73 sq M.predicted among non-blacks MDRD (S/P/Bld) [Vol rate/Area] 32 mL/min/{1.73_m2} Low >60 [facility] Comment on above: mL/min/1.73m2 CKD-EP I Creatinine Equation (2020) Hematocrit Auto (Bld) [Volum e fraction]Ordered By: Mackenzie Vance on 12-24-2024 Hematocrit (Bld) [Volume fraction] 38.0 % 37-47 [facility] Hemoglobin measurementOrdere d By: Mackenzie Vance on 12-24-2024 Hemoglobin (Bld) [Mass/Vol] 13.0 g/dL 12.0-15.0 [facility] Immature granulocytes/100 WB C Auto (Bld)Ordered By: Mackenzie Vance on 12-24-2024 Immature granulocytes/100 WBC (Bld) 0.300 % 0.0-0.9 [facility] Comment on above: IG% - Immature Granu locytes (promyelocytes, myelocytes and metamyelocytes) > 1% indicates that a LEFT SHIFT is Present. Laboratory - Chemistry and C hemistry - challengeOrdered By: Mackenzie Vance on 12-24-2024 AST [Catalytic activity/Vol] 18 U/L <32 [facility] MCV (mean corpuscular volume ) determinationOrdered By: Mackenzie Vance on 12-24-2024 MCV (RBC) [Entitic vol] 88.2 fL 81-[address] [facility] Mean corpuscular hemoglobin (MCH) determinationOrdered By: Mackenzie Vance on 12-24-2024 MCH (RBC) [Entitic mass] 30.2 pg 27.0-32.0 [facility] Mean corpuscular hemoglobin concentration (MCHC) determinationOrdered By: Mackenzie Vance on 12-24-2024 MCHC (RBC) [Mass/Vol] 34.2 g/dL 32-36 [facility] Mean platelet volume determi nationOrdered By: Mackenzie Vance on 12-24-2024 Platelet mean volume (Bld) [Entitic vol] 10.1 fL 6.2-12.0 [facility] Monocyte percentageOrdered B y: Mackenzie Vance on 12-24-2024 Monocytes/100 WBC (Bld) 10.0 % 0-[address] [facility] Neutrophil percentageOrdered By: Mackenzie Vance on 12-24-2024 Neutrophils/100 WBC (Bld) 77.2 % High 47-70 [facility] Nucleated red blood cell per centageOrdered By: Mackenzie Vance on 12-24-2024 Nucleated RBC/100 WBC (Bld) [Ratio] 0 % 0-5 [facility] Platelet countOrdered By: Eliana Vance on 12-24-2024 Platelets (Bld) [#/Vol] 248 10*3/uL 150-450 [facility] Potassium measurement (mass/ volume)Ordered By: Mackenzie Vance on 12-24-2024 Potassium (Unsp spec) [Mass/Vol] 4.4 mmol/L 3.3-5.1 [facility] RBC Auto (Bld) [#/Vol]Ordere d By: Mackenzie Vance on 12-24-2024 RBC (Bld) [#/Vol] 4.31 10*6/uL 4.2-5.4 [facility] Serum creatinine measurement (mass/volume)Ordered By: Mackenzie Vance on 12-24-2024 Creatinine [Mass/Vol] 1.56 mg/dL High 0.70-1.20 [facility] Serum globulin measurementOr dered By: Mackenzie Vance on 12-24-2024 Globulin (S) [Mass/Vol] 3.5 g/dL 2.2-4.[address] [facility] Serum glucose measurement (m ass/volume)Ordered By: Mackenzie Vance on 12-24-2024 Glucose [Mass/Vol] 178 mg/dL High 70-99 [facility] Serum or plasma alanine michaels otransferase (ALT) measurementOrdered By: Mackenzie Vance on 12-24-2024 ALT [Catalytic activity/Vol] 16 U/L <35 [facility] Serum or plasma albumin brian urement (mass/volume)Ordered By: Mackenzie Vance on 12-24-2024 Albumin [Mass/Vol] 3.6 g/dL 3.4-4.8 [facility] Serum or plasma albumin/glob ulin mass ratioOrdered By: Mackenzie Vance on 12-24-2024 Albumin/Globulin [Mass ratio] 1.0 {ratio} 0.9-2.4 [facility] Serum or plasma alkaline ashley sphatase measurementOrdered By: Mackenzie Vance on 12-24-2024 ALP [Catalytic activity/Vol] 80 U/L 35-104 [facility] Serum or plasma calcium brian urement (mass/volume)Ordered By: Mackenzie Rajiv on 12-24-2024 Calcium [Mass/Vol] 10.0 mg/dL 7.6-11.0 [facility] Serum or plasma urea nitroge n measurement (mass/volume)Ordered By: Mackenzie Vance on 12-24-2024 Urea nitrogen [Mass/Vol] 30 mg/dL High 4-19 [facility] Sodium levelOrdered By: Brittany sunny Rajiv on 12-24-2024 Sodium [Moles/Vol] 135 mmol/L 133-145 [facility] Total proteinOrdered By: iSva Vance on 12-24-2024 Protein [Mass/Vol] 7.1 g/dL 5.9-8.4 [facility] White blood cell (WBC) count Ordered By: Mackenzie Vance on 12-24-2024 WBC (Bld) [#/Vol] 15.1 10*3/uL High 4.4-11.0 [facility] Cardiology Visit Reporton Cardiology Visit Report [facility] [address] [place] [address] OFFICE VISIT Date of Service: 12/16/24 MR#: [id number] Acct: [id number] Name: DEBBIE MIRELES Rep #: [id number] : 1935 Provider: PADMINI Jean Baptiste Age/Sex: 89/F Location: [facility] Status: Signed HPI HPI History of Present [...] she questions if she had a mild PR. She had a tingling in her rib [...] 96 Intake Visit Reasons: 4 M FU [place] Operator Required: No Is patient in pain?: No Allergies clonidine (From Catapres) Allergy (Intermediate, Verified 12/16/24 13:38) Topical Reaction to PATCH ONLY, pills ok morphine Adverse Reaction (Intermediate, Verified 12/16/24 13:38) mental status change meperidine HCl (From Demerol) Adverse Reaction (Mild, Verified 12/16/24 13:38) mental status change Medications ???Medication ???Instructions ???Recorded ???Confirmed ???Type latanoprost 0.005 % eye drops 1 drp EACH EYE [facility] Cataracts/Dry 0 07/29/14 12/16/24 History (Xal[place]) eye [...] you fallen in the past year?: No [facility] Medical History Obesity Left carotid artery stenosis [...] hysterectomy H (more content not included)... Normal [facility] Bilirubin directOrdered By: Kimberly Hernandez on 12-06-2024 Bilirubin.direct [Mass/Vol] 0.28 mg/dL 0.00-0.30 [facility] Bilirubin, totalOrdered By: Kimberly Hernandez on 12-06-2024 Bilirubin [Mass/Vol] 0.68 mg/dL 0.00-1.30 [facility] Calculated very low density lipoprotein (VLDL) cholesterol measurementOrdered By: Kimberly Hernandez on 12-06-2024 Calculated very low density lipoprotein (VLDL) cholesterol measurement 24 mg/dL 5-40 [facility] LDL calc ser/plasOrdered By: Kimberly Hernandez on 12-06-2024 Cholesterol in LDL [Mass/Vol] 77 mg/dL [facility] Comment on above: Ydlvspnoig=511-107 m g/dL & Higher Nuwu=029 mg/dL or greater Laboratory - Chemistry and C hemistry - challengeOrdered By: Kimberly Hernandez on 12-06-2024 AST [Catalytic activity/Vol] 24 U/L <32 [facility] Lipid Profileon 12-06-2024 CHOL:HDL 3.[address] [facility] Comment on above: Performed By: #### L 500.4100, L500.3400 ####[facility] [address] [place], [place], [id number] Cholesterol [Mass/Vol] 147 mg/dL Normal <=200 [facility] Comment on above: Result Comment: Chol esterol level, Desirable <200 mg/dL Borderline high cholesterol 200-239 mg/dL High cholesterol >=240 mg/dL Recommendations of the NCEP Adult Treatment Panel for the following risk-cutoff thresholds for the [place] population. Performed By: #### L 500.4100, L500.3400 ####[facility] [address] [place], [place], [id number] Cholesterol in HDL [Mass/Vol] 46 mg/dL Normal [facility] Comment on above: Result Comment: Shabnam onal Cholesterol Education Program (NCEP) guidelines: <40 mg/dL: Low HDL-cholesterol (major risk factor for CHD) >= 60 mg/dL: High HDL-cholesterol (negative risk factor for CHD) HDL-cholesterol is affected by a number of factors, e.g. smoking, exercise, hormones, sex and age. Performed By: #### L 500.4100, L500.3400 ####[facility] [address] [place], [address] Cholesterol in LDL [Mass/Vol] 77 mg/dL Normal [facility] Comment on above: Result Comment: Bord vuscoh=226-053 mg/dL Higher Hajf=576 mg/dL or greater Performed By: #### L 500.4100, L500.3400 ####[facility] [address] [place], [address] Cholesterol in VLDL [Mass/Vol] 24 mg/dL Normal 5-40 [facility] Comment on above: Performed By: #### L 500.4100, L500.3400 ####[facility] [address] [place], [address] Triglyceride [Mass/Vol] 121 mg/dL Normal [facility] Comment on above: Result Comment: The drugs N-Acetylcysteine and Metamizole may falsely depress this assay. Normal range: <150 mg/dL Borderline High: 150-199 mg/dL High: 200-499 mg/dL Very High: >500 mg/dL Performed By: #### L 500.4100, L500.3400 ####[facility] [address] [place], [address] Liver Profileon 12-06-2024 Albumin [Mass/Vol] 3.9 g/dL Normal 3.4-4.8 [facility] Comment on above: Performed By: #### L 500.4100, L500.3400 ####[facility] [address] [place], [address] ALK PHOS 80 U/L Normal 35-104 [facility] Comment on above: Performed By: #### L 500.4100, L500.3400 ####[facility] [address] [place], [address] ALT [Catalytic activity/Vol] 19 U/L Normal <=34 [facility] Comment on above: Performed By: #### L 500.4100, L500.3400 ####[facility] [address] [place], [address] AST [Catalytic activity/Vol] 24 U/L Normal <=31 [facility] Comment on above: Performed By: #### L 500.4100, L500.3400 ####[facility] [address] [place], [address] Bilirubin [Mass/Vol] 0.68 mg/dL Normal 0.00-1.30 [facility] Comment on above: Performed By: #### L 500.4100, L500.3400 ####[facility] [address] [place], [address] Bilirubin.direct [Mass/Vol] 0.28 mg/dL Normal 0.00-0.30 [facility] Comment on above: Performed By: #### L 500.4100, L500.3400 ####[facility] [address] [place], [address] Globulin (S) [Mass/Vol] 3.6 g/dL Normal 2.2-4.[address] [facility] Comment on above: Performed By: #### L 500.4100, L500.3400 ####[facility] [address] [place], [address] T PROT 7.5 g/dL Normal 5.9-8.4 [facility] Comment on above: Performed By: #### L 500.4100, L500.3400 ####[facility] [address] [place], [address] Screening total cholesterol/ high density lipoprotein (HDL) cholesterol ratioOrdered By: Kimberly Hernandez on 12-06-2024 Cholesterol.total/Choles terol in HDL [Mass ratio] 3.20 {ratio} [facility] Serum globulin measurementOr dered By: Kimberly Hernandez on 12-06-2024 Globulin (S) [Mass/Vol] 3.6 g/dL 2.2-4.[address] [facility] Serum or plasma alanine michaels otransferase (ALT) measurementOrdered By: Kimberly Hernandez on 12-06-2024 ALT [Catalytic activity/Vol] 19 U/L <35 [facility] Serum or plasma albumin brian urement (mass/volume)Ordered By: Kimberly Hernandez on 12-06-2024 Albumin [Mass/Vol] 3.9 g/dL 3.4-4.8 [facility] Serum or plasma alkaline ashley sphatase measurementOrdered By: Kimberly Hernandez on 12-06-2024 ALP [Catalytic activity/Vol] 80 U/L 35-104 [facility] Serum or plasma cholesterol in HDL measurement (mass/volume)Ordered By: Kimberly Hernandez on 12-06-2024 Cholesterol in HDL [Mass/Vol] 46 mg/dL >40 [facility] Comment on above: National Cholesterol Education Program (NCEP) guidelines:<40 mg/dL: Low HDL-cholesterol (major risk factor for CHD)>= 60 mg/dL: High HDL-cholesterol (negative risk factor for CHD)HDL-cholesterol is affected by a number of factors, e.g. smoking, exercise, hormones, sex and age. Serum or plasma cholesterol measurement (mass/volume)Ordered By: Kimberly Hernandez on 12-06-2024 Cholesterol [Mass/Vol] 147 mg/dL <201 [facility] Comment on above: Cholesterol level, D esirable <200 mg/dLBorderline high cholesterol 200-239 mg/dLHigh cholesterol >=240 mg/dLRecommendations of the NCEP Adult Treatment Panel for the following risk-cutoff thresholds for the [place] population. Total proteinOrdered By: Jass Hernandez on 12-06-2024 Protein [Mass/Vol] 7.5 g/dL 5.9-8.4 [facility] Triglycerides measurementOrd ered By: Kimberly Hernandez on 12-06-2024 Triglyceride [Mass/Vol] 121 mg/dL <[address] [facility] Comment on above: The drugs N-Acetylcy steine and Metamizole may falsely depress this assay. Normal range: <150 mg/dLBorderline High: 150-199 mg/dLHigh: 200-499 mg/dLVery High: >500 mg/dL Carotid Duplex Ultrasoundon 11-09-2024 Carotid Duplex Ultrasound [facility] [place] [address] Carotid Duplex Ultrasound 11/09/24 1259 MR#: [id number] Acct: [id number] Name: DEBBIE MIRELES Rep #: [id number] : 1935 89 From: Willy Trimble MD [...] the left vertebral artery. Procedure Carotid Duplex 17897. This is a Carotid Duplex examination using B-mode, color flow and specral Doppler. The exam was diagnostic. Exam performed in department. VL/Carotid Duplex Ultrasound Interpretation Summary Mild (<50%) stenosis right extracranial internal carotid. Severe (>70%) stenosis left extracranial internal carotid. Patent and antegrade vertebrals bilaterally. Ordering Physician: Louise Suarez Referring Physician: Martina Lal M.D. Performed By: George Rader, T 11/09/241807 Date Willy Trimble MD CC: PADMINI Matamoros; Dr. Martina Lal DO Date Dictated: 11/09/24 1259 Date Transcribed: 11/09/241807 Forging Press Setter Up: Signed Normal [facility] Duplex ultrasound of carotid artery reportOrdered By: Willy Trimble on 11-09-2024 Study report [facility] [address] [place] [address] Carotid Duplex Ultrasound 11/09/24 1259 MR#: [id number] Acct: [id number] Name: DEBBIE MIRELES Rep #:[id number] : 1935 89 From: Willy Chi Attending [...] the left vertebral artery. Procedure Carotid Duplex 02689. This is a Carotid Duplex examination using [...] Date Dictated: 11/09/24 1259 Date Transcribed: 11/09/241807 Forging Press Setter Up: Signed [facility] Work Phone: Absolute lymphocyte countOrd ered By: Martina Lal on 10-12-2024 Lymphocytes Auto (Unsp spec) [#/Vol] 2.50 10*3/uL 0.83-4.51 [facility] Absolute neutrophil countOrd ered By: Martina Lal on 10-12-2024 Neutrophils (Bld) [#/Vol] 4.9 10*3/uL 2.0-7.7 [facility] Albumin DL <= 20 mg/L (U) [M ass/Vol]Ordered By: Martina Lal on 10-12-2024 Urine Random Microalbumin 14.0 mg/L NO RANGE EST. [facility] Anion gap in Serum or Plasma Ordered By: Martina Lal on 10-12-2024 Anion gap [Moles/Vol] 11 mmol/L 5-15 [facility] Automated lymphocyte count a s percentage of total leukocytesOrdered By: Martina Lal on 10-12-2024 Lymphocytes/100 WBC Auto (Unsp spec) 27.9 % 19-41 [facility] BUN/creatinine ratioOrdered By: Martina Lal on 10-12-2024 Urea nitrogen/Creatinine [Mass ratio] 23.9 mg/mg High 10-20 [facility] Basophil percentageOrdered B y: Martina Lal on 10-12-2024 Basophils/100 WBC (Bld) 0.9 % 0-[address] [facility] Bilirubin Test strip Ql (U)O rdered By: Martina Lal on 10-12-2024 Bilirubin Ql (U) Negative Negative [facility] Bilirubin directOrdered By: Martina Lal on 10-12-2024 Bilirubin.direct [Mass/Vol] 0.36 mg/dL High 0.00-0.30 [facility] Bilirubin, Directon 10-13-19 Bilirubin.direct [Mass/Vol] 0.36 mg/dL High 0.00-0.30 [facility] Comment on above: Order Comment: DR. Arti ANTHONY GETS RESULTS FOR CBCD,PROCRE URINE DR. FALLTS RESULTS FOR ALL OTHER LABS Performed By: #### L 501.4700, L501.9520, L501.0900, L506.1001, L501.2300, L500.4050, L100.0100, L502.0250, L500.4100, L400.2010 ####[facility] [address] [place], [place], [id number] Bilirubin, totalOrdered By: Martina Lal on 10-12-2024 Bilirubin [Mass/Vol] 0.91 mg/dL 0.00-1.30 [facility] CBC W/Diff, Automatedon 09-19 Absolute Lymph 2.50 X10 3/uL Normal 0.83-4.51 [facility] Comment on above: Performed By: #### L 501.4700, L501.9520, L501.0900, L506.1001, L501.2300, L500.4050, L100.0100, L502.0250, L500.4100, L400.2010 ####[facility] [address] [place], [address] Absolute Neut 4.9 X10 3/uL Normal 2.0-7.7 [facility] Comment on above: Performed By: #### L 501.4700, L501.9520, L501.0900, L506.1001, L501.2300, L500.4050, L100.0100, L502.0250, L500.4100, L400.2010 ####[facility] [address] [facility] [place], [address] Basophils/100 WBC (Bld) 0.9 % Normal 0-[address] [facility] Comment on above: Performed By: #### L 501.4700, L501.9520, L501.0900, L506.1001, L501.2300, L500.4050, L100.0100, L502.0250, L500.4100, L400.2010 ####[facility] [address] [facility] [place], [place], [phone] Eosinophils/100 WBC (Bld) 4.0 % Normal 0-5 [facility] Comment on above: Performed By: #### L 501.4700, L501.9520, L501.0900, L506.1001, L501.2300, L500.4050, L100.0100, L502.0250, L500.4100, L400.2010 ####[facility] [address] [facility] [place], [address](326) Erythrocyte distribution width (RBC) [Ratio] 13.2 % Normal 11.6-14.6 [facility] Comment on above: Performed By: #### L 501.4700, L501.9520, L501.0900, L506.1001, L501.2300, L500.4050, L100.0100, L502.0250, L500.4100, L400.2010 ####[facility] [address] [facility] [place], [place], [phone] Hematocrit (Bld) [Volume fraction] 41.4 % Normal 37-47 [facility] Comment on above: Performed By: #### L 501.4700, L501.9520, L501.0900, L506.1001, L501.2300, L500.4050, L100.0100, L502.0250, L500.4100, L400.2010 ####[facility] [address] [place], [address] Hemoglobin (Bld) [Mass/Vol] 14.0 g/dL Normal 12.0-15.0 [facility] Comment on above: Performed By: #### L 501.4700, L501.9520, L501.0900, L506.1001, L501.2300, L500.4050, L100.0100, L502.0250, L500.4100, L400.2010 ####[facility] [address] [place], [address]( IG% 0.400 Normal 0.0-0.9 [facility] Comment on above: Result Comment: IG% - Immature Granulocytes (promyelocytes, myelocytes and metamyelocytes) > 1% indicates that a LEFT SHIFT is Present. Performed By: #### L 501.4700, L501.9520, L501.0900, L506.1001, L501.2300, L500.4050, L100.0100, L502.0250, L500.4100, L400.2010 ####[facility] [address] [place], [address] Lymphocytes/100 WBC (Bld) 27.9 % Normal 19-41 [facility] Comment on above: Performed By: #### L 501.4700, L501.9520, L501.0900, L506.1001, L501.2300, L500.4050, L100.0100, L502.0250, L500.4100, L400.2010 ####[facility] [address] [place], [address] MCH (RBC) [Entitic mass] 30.6 pg Normal 27.0-32.0 [facility] Comment on above: Performed By: #### L 501.4700, L501.9520, L501.0900, L506.1001, L501.2300, L500.4050, L100.0100, L502.0250, L500.4100, L400.2010 ####[facility] [address] [place], [address] MCHC (RBC) [Mass/Vol] 33.8 g/dL Normal 32-36 [facility] Comment on above: Performed By: #### L 501.4700, L501.9520, L501.0900, L506.1001, L501.2300, L500.4050, L100.0100, L502.0250, L500.4100, L400.2010 ####[facility] [address] [facility] [place], [address] MCV (RBC) [Entitic vol] 90.4 fL Normal 81-99 [facility] Comment on above: Performed By: #### L 501.4700, L501.9520, L501.0900, L506.1001, L501.2300, L500.4050, L100.0100, L502.0250, L500.4100, L400.2010 ####[facility] [address] [facility] [place], [address] Monocytes/100 WBC (Bld) 11.8 % High 0-[address] [facility] Comment on above: Performed By: #### L 501.4700, L501.9520, L501.0900, L506.1001, L501.2300, L500.4050, L100.0100, L502.0250, L500.4100, L400.2010 ####[facility] [address] [facility] [place], [address] Neutrophils/100 WBC (Bld) 55.0 % Normal 47-70 [facility] Comment on above: Performed By: #### L 501.4700, L501.9520, L501.0900, L506.1001, L501.2300, L500.4050, L100.0100, L502.0250, L500.4100, L400.2010 ####[facility] [address] [place], [address] Nucleated RBC (Bld) [#/Vol] 0 10*3/uL Normal 0-5 [facility] Comment on above: Performed By: #### L 501.4700, L501.9520, L501.0900, L506.1001, L501.2300, L500.4050, L100.0100, L502.0250, L500.4100, L400.2010 ####[facility] [address] [facility] [place], [address] Platelet mean volume (Bld) [Entitic vol] 10.1 fL Normal 6.2-12.0 [facility] Comment on above: Performed By: #### L 501.4700, L501.9520, L501.0900, L506.1001, L501.2300, L500.4050, L100.0100, L502.0250, L500.4100, L400.2010 ####[facility] [address] [facility] [place], [address] Platelets (Bld) [#/Vol] 264 10*3/uL Normal 150-450 [facility] Comment on above: Performed By: #### L 501.4700, L501.9520, L501.0900, L506.1001, L501.2300, L500.4050, L100.0100, L502.0250, L500.4100, L400.2010 ####[facility] [address] [facility] [place], [address] RBC (Bld) [#/Vol] 4.58 10*6/uL Normal 4.2-5.4 [facility] Comment on above: Performed By: #### L 501.4700, L501.9520, L501.0900, L506.1001, L501.2300, L500.4050, L100.0100, L502.0250, L500.4100, L400.2010 ####[facility] [address] [facility]. [place], [place], [id number] RDW SD 43.7 fl Normal 35.1-43.9 [facility] Comment on above: Performed By: #### L 501.4700, L501.9520, L501.0900, L506.1001, L501.2300, L500.4050, L100.0100, L502.0250, L500.4100, L400.2010 ####[facility] [address] [facility]. [place], [place], [id number] WBC (Bld) [#/Vol] 9.0 10*3/uL Normal 4.4-11.0 [facility] Comment on above: Performed By: #### L 501.4700, L501.9520, L501.0900, L506.1001, L501.2300, L500.4050, L100.0100, L502.0250, L500.4100, L400.2010 ####[facility] [address] [facility]. [place], [place], [id number] Calculated very low density lipoprotein (VLDL) cholesterol measurementOrdered By: Martina Lal on 10-12-2024 Calculated very low density lipoprotein (VLDL) cholesterol measurement 25 mg/dL - [facility] VLDL Cholesterol 25 mg/dL - [facility] Carbon dioxide, total [Moles /volume] in Central venous bloodOrdered By: Martina Lal on 10-12-2024 CO2 [Moles/Vol] 23.1 mmol/L 21.0-32.0 [facility] Chloride assayOrdered By: Pascual Lal on 10-12-2024 Chloride [Moles/Vol] 105 mmol/L 98-108 [facility] Comprehensive Metabolic Prof ilon 10-12-2024 Albumin [Mass/Vol] 3.7 g/dL Normal 3.4-4.8 [facility] Comment on above: Order Comment: DR. Arti ANTHONY GETS RESULTS FOR CBCD,PROCRE URINE DR. WARNER RESULTS FOR ALL OTHER LABS Performed By: #### L 501.4700, L501.9520, L501.0900, L506.1001, L501.2300, L500.4050, L100.0100, L502.0250, L500.4100, L400.2010 ####[facility] [address] [place], [address] Albumin/Globulin [Mass ratio] 1.1 {ratio} Normal 0.9-2.4 [facility] Comment on above: Order Comment: DR. Arti ANTHONY GETS RESULTS FOR CBCD,PROCRE URINE DR. WARNER RESULTS FOR ALL OTHER LABS Performed By: #### L 501.4700, L501.9520, L501.0900, L506.1001, L501.2300, L500.4050, L100.0100, L502.0250, L500.4100, L400.2010 ####[facility] [address] [place], [address] ALK PHOS 78 U/L Normal 35-104 [facility] Comment on above: Order Comment: DR. Arti ANTHONY GETS RESULTS FOR CBCD,PROCRE URINE DR. WARNER RESULTS FOR ALL OTHER LABS Performed By: #### L 501.4700, L501.9520, L501.0900, L506.1001, L501.2300, L500.4050, L100.0100, L502.0250, L500.4100, L400.2010 ####[facility] [address] [place], [address] ALT [Catalytic activity/Vol] 19 U/L Normal <=34 [facility] Comment on above: Order Comment: DR. Arti ANTHONY GETS RESULTS FOR CBCD,PROCRE URINE DR. WARNER RESULTS FOR ALL OTHER LABS Performed By: #### L 501.4700, L501.9520, L501.0900, L506.1001, L501.2300, L500.4050, L100.0100, L502.0250, L500.4100, L400.2010 ####[facility] [address] [place], [address] AST [Catalytic activity/Vol] 18 U/L Normal <=31 [facility] Comment on above: Order Comment: DR. Arti ANTHONY GETS RESULTS FOR CBCD,PROCRE URINE DR. WARNER RESULTS FOR ALL OTHER LABS Performed By: #### L 501.4700, L501.9520, L501.0900, L506.1001, L501.2300, L500.4050, L100.0100, L502.0250, L500.4100, L400.2010 ####[facility] [address] [place], [place], [id number] Bilirubin [Mass/Vol] 0.91 mg/dL Normal 0.00-1.30 [facility] Comment on above: Order Comment: DR. Arti ANTHONY GETS RESULTS FOR CBCD,PROCRE URINE DR. WARNER RESULTS FOR ALL OTHER LABS Performed By: #### L 501.4700, L501.9520, L501.0900, L506.1001, L501.2300, L500.4050, L100.0100, L502.0250, L500.4100, L400.2010 ####[facility] [address] [place], [place], [id number] BUN/CRE 23.9 RATIO High 10-20 [facility] Comment on above: Order Comment: DR. Arti ANTHONY GETS RESULTS FOR CBCD,PROCRE URINE DR. WARNER RESULTS FOR ALL OTHER LABS Performed By: #### L 501.4700, L501.9520, L501.0900, L506.1001, L501.2300, L500.4050, L100.0100, L502.0250, L500.4100, L400.2010 ####[facility] [address] [place], [address] Calcium [Mass/Vol] 10.2 mg/dL Normal 7.6-11.0 [facility] Comment on above: Order Comment: DR. Arti ANTHONY GETS RESULTS FOR CBCD,PROCRE URINE DR. WARNER RESULTS FOR ALL OTHER LABS Performed By: #### L 501.4700, L501.9520, L501.0900, L506.1001, L501.2300, L500.4050, L100.0100, L502.0250, L500.4100, L400.2010 ####[facility] [address] [place], [address] Chloride [Moles/Vol] 105 mmol/L Normal 98-108 [facility] Comment on above: Order Comment: DR. Arti ANTHONY GETS RESULTS FOR CBCD,PROCRE URINE DR. WARNER RESULTS FOR ALL OTHER LABS Performed By: #### L 501.4700, L501.9520, L501.0900, L506.1001, L501.2300, L500.4050, L100.0100, L502.0250, L500.4100, L400.2010 ####[facility] [address] [place], [address] CO2 [Moles/Vol] 23.1 mmol/L Normal 21.0-32.0 [facility] Comment on above: Order Comment: DR. Arti ANTHONY GETS RESULTS FOR CBCD,PROCRE URINE DR. WARNER RESULTS FOR ALL OTHER LABS Performed By: #### L 501.4700, L501.9520, L501.0900, L506.1001, L501.2300, L500.4050, L100.0100, L502.0250, L500.4100, L400.2010 ####[facility] [address] [place], [address] Creatinine [Mass/Vol] 1.31 mg/dL High 0.70-1.20 [facility] Comment on above: Order Comment: DR. Arti ANTHONY GETS RESULTS FOR CBCD,PROCRE URINE DR. WARNER RESULTS FOR ALL OTHER LABS Performed By: #### L 501.4700, L501.9520, L501.0900, L506.1001, L501.2300, L500.4050, L100.0100, L502.0250, L500.4100, L400.2010 ####[facility] [address] [place], [place], [phone] GAP 11 Normal 5-15 [facility] Comment on above: Order Comment: DR. Arti ANTHONY GETS RESULTS FOR CBCD,PROCRE URINE DR. WARNER RESULTS FOR ALL OTHER LABS Performed By: #### L 501.4700, L501.9520, L501.0900, L506.1001, L501.2300, L500.4050, L100.0100, L502.0250, L500.4100, L400.2010 ####[facility] [address] [facility] [address] [place], [place], [id number] GFR/1.73 sq M.predicted among non-blacks MDRD (S/P/Bld) [Vol rate/Area] 39 mL/min/{1.73_m2} Low >60 [facility] Comment on above: Order Comment: DR. Arti ANTHONY GETS RESULTS FOR CBCD,PROCRE URINE DR. WARNER RESULTS FOR ALL OTHER LABS Result Comment: mL/m in/1.73m2 CKD-EPI Creatinine Equation (2020) Performed By: #### L 501.4700, L501.9520, L501.0900, L506.1001, L501.2300, L500.4050, L100.0100, L502.0250, L500.4100, L400.2010 ####[facility] [address] [place], [place], [phone] Globulin (S) [Mass/Vol] 3.5 g/dL Normal 2.2-4.[address] [facility] Comment on above: Order Comment: DR. Arti ANTHONY GETS RESULTS FOR CBCD,PROCRE URINE DR. WARNER RESULTS FOR ALL OTHER LABS Performed By: #### L 501.4700, L501.9520, L501.0900, L506.1001, L501.2300, L500.4050, L100.0100, L502.0250, L500.4100, L400.2010 ####[facility] [address] [place], [address] Glucose [Mass/Vol] 121 mg/dL High 70-99 [facility] Comment on above: Order Comment: DR. Arti ANTHONY GETS RESULTS FOR CBCD,PROCRE URINE DR. WARNER RESULTS FOR ALL OTHER LABS Performed By: #### L 501.4700, L501.9520, L501.0900, L506.1001, L501.2300, L500.4050, L100.0100, L502.0250, L500.4100, L400.2010 ####[facility] [address] [place], [address] Potassium [Moles/Vol] 4.6 mmol/L Normal 3.3-5.1 [facility] Comment on above: Order Comment: DR. Arti ANTHONY GETS RESULTS FOR CBCD,PROCRE URINE DR. WARNER RESULTS FOR ALL OTHER LABS Performed By: #### L 501.4700, L501.9520, L501.0900, L506.1001, L501.2300, L500.4050, L100.0100, L502.0250, L500.4100, L400.2010 ####[facility] [address] [place], [address] Sodium [Moles/Vol] 139 mmol/L Normal 133-145 [facility] Comment on above: Order Comment: DR. Arti ANTHONY GETS RESULTS FOR CBCD,PROCRE URINE DR. WARNER RESULTS FOR ALL OTHER LABS Performed By: #### L 501.4700, L501.9520, L501.0900, L506.1001, L501.2300, L500.4050, L100.0100, L502.0250, L500.4100, L400.2010 ####[facility] [address] [place], [address] T PROT 7.2 g/dL Normal 5.9-8.4 [facility] Comment on above: Order Comment: DR. Arti ANTHONY GETS RESULTS FOR CBCD,PROCRE URINE DR. WARNER RESULTS FOR ALL OTHER LABS Performed By: #### L 501.4700, L501.9520, L501.0900, L506.1001, L501.2300, L500.4050, L100.0100, L502.0250, L500.4100, L400.2010 ####[facility] [address] [place], [address] Urea nitrogen [Mass/Vol] 31 mg/dL High 4-19 [facility] Comment on above: Order Comment: DR. Arti ANTHONY GETS RESULTS FOR CBCD,PROCRE URINE DR. WARNER RESULTS FOR ALL OTHER LABS Performed By: #### L 501.4700, L501.9520, L501.0900, L506.1001, L501.2300, L500.4050, L100.0100, L502.0250, L500.4100, L400.2010 ####[facility] [address] [place], [address] Creatinine Unsp time (U) [Ma ss/Vol]Ordered By: Martina Lal on 10-12-2024 Creatinine (U) [Mass/Vol] 34.60 mg/dL 28.00-217. 00 [facility] Eosinophil percentageOrdered By: Martina Lal on 10-12-2024 Eosinophils/100 WBC (Bld) 4.0 % 0-5 [facility] Erythrocyte distribution wid th ratioOrdered By: Martina Lal on 10-12-2024 Erythrocyte distribution width (RBC) [Ratio] 13.2 % 11.6-14.6 [facility] Erythrocyte distribution wid th standard deviationOrdered By: Martina Lal on 10-12-2024 Erythrocyte distribution width (RBC) [Entitic vol] 43.7 fL 35.1-43.9 [facility] Erythrocyte distribution width (RBC) [Ratio] 43.7 fl 35.1-43.9 [facility] GFR/1.73 sq M.predicted malaika g non-blacks MDRD (S/P/Bld) [Vol rate/Area]Ordered By: Martina Lal on 10-12-2024 Estimated GFR (MDRD) Non-Af Amer 39 Low >60 [facility] Comment on above: mL/min/1.73m2 CKD-EP I Creatinine Equation (2020) Glomerular filtration rate ( GFR) estimation/1.73 sq m using serum, plasma, or whole bOrdered By: Martina Lal on 10-12-2024 GFR/1.73 sq M.predicted among non-blacks MDRD (S/P/Bld) [Vol rate/Area] 39 mL/min/{1.73_m2} Low >60 [facility] Comment on above: mL/min/1.73m2 CKD-EP I Creatinine Equation (2020) Glucose Ql (U)Ordered By: Pascual Lal on 10-12-2024 Urine Glucose (UA) Normal mg/dl Normal [facility] Hematocrit Auto (Bld) [Volum e fraction]Ordered By: Martina Lal on 10-12-2024 Hematocrit (Bld) [Volume fraction] 41.4 % 37-47 [facility] Hemoglobin measurementOrdere d By: Martina Lal on 10-12-2024 Hemoglobin (Bld) [Mass/Vol] 14.0 g/dL 12.0-15.0 [facility] Immature granulocytes/100 WB C Auto (Bld)Ordered By: Martina Lal on 10-12-2024 Immature granulocytes/100 WBC (Bld) 0.400 % 0.0-0.9 [facility] Comment on above: IG% - Immature Granu locytes (promyelocytes, myelocytes and metamyelocytes) > 1% indicates that a LEFT SHIFT is Present. Ketones Test strip Ql (U)Ord ered By: Martina Lal on 10-12-2024 Ketones Ql (U) Negative Negative [facility] L506.1001on 10-12-2024 Vitamin D 25-OH 63.5 ng/mL Normal 30-100 [facility] Comment on above: Order Comment: DR. Arti ANTHONY GETS RESULTS FOR CBCD,PROCRE URINE DR. WARNER RESULTS FOR ALL OTHER LABS Result Comment: Swetha min D Status Deficiency: <20 ng/mL (50nmol/L) Insufficiency: 20-30 ng/mL (50-75 nmol/L) Sufficiency: 30-100 ng/mL (75-250 nmol/L) Toxicity: >100 ng/mL (>250 nmol/L) Performed By: #### L 501.4700, L501.9520, L501.0900, L506.1001, L501.2300, L500.4050, L100.0100, L502.0250, L500.4100, L400.2010 ####[facility] [address] [place], [place], [phone] LDL calc ser/plasOrdered By: Martina Lal on 10-12-2024 Cholesterol in LDL [Mass/Vol] 77 mg/dL [facility] Comment on above: Cljxgjzmzb=027-130 m g/dL & Higher Gnxg=980 mg/dL or greater LDL Cholesterol, Calculated 77 mg/dL [facility] Comment on above: Seryfgvpjs=304-793 m g/dL & Higher Egio=360 mg/dL or greater Laboratory - Chemistry and C hemistry - challengeOrdered By: Martina Lal on 10-12-2024 AST [Catalytic activity/Vol] 18 U/L <32 [facility] Lipid Profileon 10-12-2024 CHOL:HDL 3.[address] [facility] Comment on above: Order Comment: DR. Arti ANTHONY GETS RESULTS FOR CBCD,PROCRE URINE DR. WARNER RESULTS FOR ALL OTHER LABS Performed By: #### L 501.4700, L501.9520, L501.0900, L506.1001, L501.2300, L500.4050, L100.0100, L502.0250, L500.4100, L400.2010 ####[facility] [address] [place], [address] Cholesterol [Mass/Vol] 153 mg/dL Normal <=200 [facility] Comment on above: Order Comment: DR. Arti ANTHONY GETS RESULTS FOR CBCD,PROCRE URINE DR. WARNER RESULTS FOR ALL OTHER LABS Result Comment: Chol esterol level, Desirable <200 mg/dL Borderline high cholesterol 200-239 mg/dL High cholesterol >=240 mg/dL Recommendations of the NCEP Adult Treatment Panel for the following risk-cutoff thresholds for the [place] population. Performed By: #### L 501.4700, L501.9520, L501.0900, L506.1001, L501.2300, L500.4050, L100.0100, L502.0250, L500.4100, L400.2010 ####[facility] [address] [place], [address] Cholesterol in HDL [Mass/Vol] 51 mg/dL Normal [facility] Comment on above: Order Comment: DR. [...] L506.1001, L501.2300, L500.4050, L100.0100, L502.0250, L500.4100, L400.2010 ####[facility] [address] [place], [address] Cholesterol in LDL [Mass/Vol] 77 mg/dL Normal [facility] Comment on above: Order Comment: DR. Arti ANTHONY GETS RESULTS FOR CBCD,PROCRE URINE DR. WARNER RESULTS FOR ALL OTHER LABS Result Comment: Bord plogje=018-200 mg/dL Higher Zuup=391 mg/dL or greater Performed By: #### L 501.4700, L501.9520, L501.0900, L506.1001, L501.2300, L500.4050, L100.0100, L502.0250, L500.4100, L400.2010 ####[facility] [address] [place], [address] Cholesterol in VLDL [Mass/Vol] 25 mg/dL Normal 5-40 [facility] Comment on above: Order Comment: DR. Arti ANTHONY GETS RESULTS FOR CBCD,PROCRE URINE DR. FALLTS RESULTS FOR ALL OTHER LABS Performed By: #### L 501.4700, L501.9520, L501.0900, L506.1001, L501.2300, L500.4050, L100.0100, L502.0250, L500.4100, L400.2010 ####[facility] [address] [facility] [place], [address] Triglyceride [Mass/Vol] 127 mg/dL Normal [facility] Comment on above: Order Comment: DR. Arti ANTHONY GETS RESULTS FOR CBCD,PROCRE URINE DR. FALLTS RESULTS FOR ALL OTHER LABS Result Comment: The drugs N-Acetylcysteine and Metamizole may falsely depress this assay. Normal range: <150 mg/dL Borderline High: 150-199 mg/dL High: 200-499 mg/dL Very High: >500 mg/dL Performed By: #### L 501.4700, L501.9520, L501.0900, L506.1001, L501.2300, L500.4050, L100.0100, L502.0250, L500.4100, L400.2010 ####[facility] [address] [place], [address] Lymphocytes Auto (Unsp spec) [#/Vol]Ordered By: Martina Lal on 10-12-2024 Lymphocytes (Bld) [#/Vol] 2.50 10*3/uL 0.83-4.51 [facility] Lymphocytes/100 WBC Auto (Un sp spec)Ordered By: Martina Lal on 10-12-2024 Lymphocytes/100 WBC (Bld) 27.9 % 19-41 [facility] MCV (mean corpuscular volume ) determinationOrdered By: Martina Lal on 10-12-2024 MCV (RBC) [Entitic vol] 90.4 fL 81-[address] [facility] Mean corpuscular hemoglobin (MCH) determinationOrdered By: Martina Lal on 10-12-2024 MCH (RBC) [Entitic mass] 30.6 pg 27.0-32.0 [facility] Mean corpuscular hemoglobin concentration (MCHC) determinationOrdered By: Martina Lal on 10-12-2024 MCHC (RBC) [Mass/Vol] 33.8 g/dL 32-36 [facility] Mean platelet volume determi nationOrdered By: Martina Lal on 10-12-2024 Platelet mean volume (Bld) [Entitic vol] 10.1 fL 6.2-12.0 [facility] Microalbumin/creat ratio urO rdered By: Martina Lal on 10-12-2024 Urine Microalbumin/Creatinine Ratio 404.6 mg/g CRE [facility] Monocyte percentageOrdered B y: Martina Lal on 10-12-2024 Monocytes/100 WBC (Bld) 11.8 % High 0-[address] [facility] Neutrophil percentageOrdered By: Martina Lal on 10-12-2024 Neutrophils/100 WBC (Bld) 55.0 % 47-70 [facility] Nitrite Test strip Ql (U)Ord ered By: Martina Lal on 10-12-2024 Nitrite Ql (U) Negative Negative [facility] Nucleated red blood cell per centageOrdered By: Martina Lal on 10-12-2024 Nucleated RBC/100 WBC (Bld) [Ratio] 0 % 0-5 [facility] Phosphoruson 10-12-2024 Phosphate [Mass/Vol] 2.8 mg/dL Normal 2.7-4.5 [facility] Comment on above: Order Comment: DR. Arti ANTHONY GETS RESULTS FOR CBCD,PROCRE URINE DR. FALLTS RESULTS FOR ALL OTHER LABS Performed By: #### L 501.4700, L501.9520, L501.0900, L506.1001, L501.2300, L500.4050, L100.0100, L502.0250, L500.4100, L400.2010 ####[facility] [address] [place], [address] Platelet countOrdered By: Pascual Lal on 10-12-2024 Platelets (Bld) [#/Vol] 264 10*3/uL 150-450 [facility] Potassium (Unsp spec) [Mass/ Vol]Ordered By: Martina Lal on 10-12-2024 Potassium [Moles/Vol] 4.6 mmol/L 3.3-5.1 [facility] Potassium measurement (mass/ volume)Ordered By: Martina Lal on 10-12-2024 Potassium (Unsp spec) [Mass/Vol] 4.6 mmol/L 3.3-5.1 [facility] Protein (U) [Mass/Vol]Ordere d By: Martina Lal on 10-12-2024 Urine Random Total Protein < 6.0 mg/dL 0.0-12.0 [facility] Protein Test strip Ql (U)Ord ered By: Martina Lal on 10-12-2024 Protein Ql (U) Negative Negative [facility] Protein+Creatinine Ratio,Uri neon 10-12-2024 PROT:CRE RATIO UNABLE TO CALCULATE Normal 0-[address] [facility] Comment on above: Performed By: #### L 501.4700, L501.9520, L501.0900, L506.1001, L501.2300, L500.4050, L100.0100, L502.0250, L500.4100, L400.2010 ####[facility] [address] [place], [place], [id number] PROTEIN,UR.RAN. < 6.0 Normal 0.0-12.0 [facility] Comment on above: Performed By: #### L 501.4700, L501.9520, L501.0900, L506.1001, L501.2300, L500.4050, L100.0100, L502.0250, L500.4100, L400.2010 ####[facility] [address] [place], [address] UR CREAT 34.60 mg/dL Normal 28.00-217. 00 [facility] Comment on above: Performed By: #### L 501.4700, L501.9520, L501.0900, L506.1001, L501.2300, L500.4050, L100.0100, L502.0250, L500.4100, L400.2010 ####[facility] [address] [facility] [address] [place], [place], [id number] Protein/Creatinine (U) [Mass ratio]Ordered By: Martina Lal on 10-12-2024 Urine Protein/Creatinine Ratio UNABLE TO CALCULATE mg/g CRE 0-200 [facility] RBC Auto (Bld) [#/Vol]Ordere d By: Martina Lal on 10-12-2024 RBC (Bld) [#/Vol] 4.58 10*6/uL 4.2-5.4 [facility] Random urine creatinine brian urement (mass/volume)Ordered By: Martina Lal on 10-12-2024 Creatinine Unsp time (U) [Mass/Vol] 34.60 mg/dL 28.00-217. 00 [facility] Screening total cholesterol/ high density lipoprotein (HDL) cholesterol ratioOrdered By: Martina Lal on 10-12-2024 Cholesterol.total/Choles terol in HDL [Mass ratio] 3.00 {ratio} [facility] Serum creatinine measurement (mass/volume)Ordered By: Martina Lal on 10-12-2024 Creatinine [Mass/Vol] 1.31 mg/dL High 0.70-1.20 [facility] Serum globulin measurementOr dered By: Martina Lal on 10-12-2024 Globulin (S) [Mass/Vol] 3.5 g/dL 2.2-4.[address] [facility] Serum glucose measurement (m ass/volume)Ordered By: Martina Lal on 10-12-2024 Glucose [Mass/Vol] 121 mg/dL High 70-99 [facility] Serum or plasma alanine michaels otransferase (ALT) measurementOrdered By: Martina Lal on 10-12-2024 ALT [Catalytic activity/Vol] 19 U/L <35 [facility] Serum or plasma albumin brian urement (mass/volume)Ordered By: Martina Lal on 10-12-2024 Albumin [Mass/Vol] 3.7 g/dL 3.4-4.8 [facility] Serum or plasma albumin/glob ulin mass ratioOrdered By: Martina Lal on 10-12-2024 Albumin/Globulin [Mass ratio] 1.1 {ratio} 0.9-2.4 [facility] Serum or plasma alkaline ashley sphatase measurementOrdered By: Martina Lal on 10-12-2024 ALP [Catalytic activity/Vol] 78 U/L 35-104 [facility] Serum or plasma calcium brian urement (mass/volume)Ordered By: Martina Lal on 10-12-2024 Calcium [Mass/Vol] 10.2 mg/dL 7.6-11.0 [facility] Serum or plasma cholesterol in HDL measurement (mass/volume)Ordered By: Martina Lal on 10-12-2024 Cholesterol in HDL [Mass/Vol] 51 mg/dL >40 [facility] Comment on above: National Cholesterol Education Program (NCEP) guidelines:<40 mg/dL: Low HDL-cholesterol (major risk factor for CHD)>= 60 mg/dL: High HDL-cholesterol (negative risk factor for CHD)HDL-cholesterol is affected by a number of factors, e.g. smoking, exercise, hormones, sex and age. Serum or plasma cholesterol measurement (mass/volume)Ordered By: Martina Lal on 10-12-2024 Cholesterol [Mass/Vol] 153 mg/dL <201 [facility] Comment on above: Cholesterol level, D esirable <200 mg/dLBorderline high cholesterol 200-239 mg/dLHigh cholesterol >=240 mg/dLRecommendations of the NCEP Adult Treatment Panel for the following risk-cutoff thresholds for the [place] population. Serum or plasma urea nitroge n measurement (mass/volume)Ordered By: Martina Lal on 10-12-2024 Urea nitrogen [Mass/Vol] 31 mg/dL High 4-19 [facility] Serum phosphorus measurement Ordered By: Martina Lal on 10-12-2024 Phosphorus Level 2.8 mg/dL 2.7-4.5 [facility] Sodium levelOrdered By: Prisca Lal on 10-12-2024 Sodium [Moles/Vol] 139 mmol/L 133-145 [facility] TSH DL <= 0.005 mIU/L QnOrde red By: Martina Lal on 10-12-2024 Thyroid Stimulating Hormone (TSH) 2.580 uIU/mL 0.300-4.[address] [facility] TSH Qn 2.580 uIU/mL 0.300-4.[address] [facility] Thyroid Stim Hormone (TSH)on 10-12-2024 TSH 2.580 uIU/mL Normal 0.300-4.[address] [facility] Comment on above: Order Comment: DR. Arti ANTHONY GETS RESULTS FOR CBCD,PROCRE URINE DR. FALLTS RESULTS FOR ALL OTHER LABS Performed By: #### L 501.4700, L501.9520, L501.0900, L506.1001, L501.2300, L500.4050, L100.0100, L502.0250, L500.4100, L400.2010 ####[facility] [address] [place], [address] Total proteinOrdered By: Emily Lal on 10-12-2024 Protein [Mass/Vol] 7.2 g/dL 5.9-8.4 [facility] Triglycerides measurementOrd ered By: Martina Lal on 10-12-2024 Triglyceride [Mass/Vol] 127 mg/dL <[address] [facility] Comment on above: The drugs N-Acetylcy steine and Metamizole may falsely depress this assay. Normal range: <150 mg/dLBorderline High: 150-199 mg/dLHigh: 200-499 mg/dLVery High: >500 mg/dL Urinalysis, Routine (Dipstic k)on 10-12-2024 BILIRUBIN URINE Negative Normal Negative [facility] Comment on above: Order Comment: Urine , Random Performed By: #### L 501.4700, L501.9520, L501.0900, L506.1001, L501.2300, L500.4050, L100.0100, L502.0250, L500.4100, L400.2010 ####[facility] [address] [place], [place], [phone] Clarity (U) Clear Normal Clear [facility] Comment on above: Order Comment: Urine , Random Performed By: #### L 501.4700, L501.9520, L501.0900, L506.1001, L501.2300, L500.4050, L100.0100, L502.0250, L500.4100, L400.2010 ####[facility] [address] [place], [place], [phone] Color (U) Yellow Normal Yellow [facility] Comment on above: Order Comment: Urine , Random Performed By: #### L 501.4700, L501.9520, L501.0900, L506.1001, L501.2300, L500.4050, L100.0100, L502.0250, L500.4100, L400.2010 ####[facility] [address] [place], [place], [phone] GLUCOSE, UR Normal Normal Normal [facility] Comment on above: Order Comment: Urine , Random Performed By: #### L 501.4700, L501.9520, L501.0900, L506.1001, L501.2300, L500.4050, L100.0100, L502.0250, L500.4100, L400.2010 ####[facility] [address] [place], [place], [id number] KETONE UR Negative Normal Negative [facility] Comment on above: Order Comment: Urine , Random Performed By: #### L 501.4700, L501.9520, L501.0900, L506.1001, L501.2300, L500.4050, L100.0100, L502.0250, L500.4100, L400.2010 ####[facility] [address] [place], [place], [phone](159) LEUK ESTERASE 25 /ul Abnormal Negative [facility] Comment on above: Order Comment: Urine , Random Performed By: #### L 501.4700, L501.9520, L501.0900, L506.1001, L501.2300, L500.4050, L100.0100, L502.0250, L500.4100, L400.2010 ####[facility] [address] [place], [place], [phone] Nitrite Ql (U) Negative Normal Negative [facility] Comment on above: Order Comment: Urine , Random Performed By: #### L 501.4700, L501.9520, L501.0900, L506.1001, L501.2300, L500.4050, L100.0100, L502.0250, L500.4100, L400.2010 ####[facility] [address] [place], [place], [phone] OCCULT BLOOD-UR Negative Normal Negative [facility] Comment on above: Order Comment: Urine , Random Performed By: #### L 501.4700, L501.9520, L501.0900, L506.1001, L501.2300, L500.4050, L100.0100, L502.0250, L500.4100, L400.2010 ####[facility] [address] [place], [place], [phone]) pH UR 7.0 Normal 5.0 - 8.0 [facility] Comment on above: Order Comment: Urine , Random Performed By: #### L 501.4700, L501.9520, L501.0900, L506.1001, L501.2300, L500.4050, L100.0100, L502.0250, L500.4100, L400.2010 ####[facility] [address] [place], [address] PROT DIPSTX Negative Normal Negative [facility] Comment on above: Order Comment: Urine , Random Performed By: #### L 501.4700, L501.9520, L501.0900, L506.1001, L501.2300, L500.4050, L100.0100, L502.0250, L500.4100, L400.2010 ####[facility] [address] [place], [address] SP.GR. DIPSTX 1.010 Normal 1.002-1.[address] [facility] Comment on above: Order Comment: Urine , Random Performed By: #### L 501.4700, L501.9520, L501.0900, L506.1001, L501.2300, L500.4050, L100.0100, L502.0250, L500.4100, L400.2010 ####[facility] [address] [place], [address]OBILI Normal Normal Normal [facility] Comment on above: Order Comment: Urine , Random Performed By: #### L 501.4700, L501.9520, L501.0900, L506.1001, L501.2300, L500.4050, L100.0100, L502.0250, L500.4100, L400.2010 ####[facility] [address] [place], [address] Urine albumin measurement [facility] detection limit of 20 mg/L or less (mass/volume)Ordered By: Martina Lal on 10-12-2024 Albumin DL <= 20 mg/L (U) [Mass/Vol] 14.0 mg/L NO RANGE EST. [facility] Urine blood detectionOrdered By: Martina aLl on 10-12-2024 Urine Occult Blood Negative Negative [facility] Urine clarityOrdered By: Emily Lal on 10-12-2024 Clarity (U) Clear Clear [facility] Urine color determinationOrd ered By: Martina Lal on 10-12-2024 Color (U) Yellow Yellow [facility] Urine glucose detectionOrder ed By: Martina Lal on 10-12-2024 Glucose Ql (U) Normal mg/dl Normal [facility] Urine leukocyte esterase det ection by dipstickOrdered By: Martina Lal on 10-12-2024 Leukocyte esterase Test strip Ql (U) 25 /ul High Negative [facility] Urine pHOrdered By: Martina Lal on 10-12-2024 pH (U) 7.0 [pH] 5.0 - 8.0 [facility] Urine protein measurement (m ass/volume)Ordered By: Martina Lal on 10-12-2024 Protein (U) [Mass/Vol] mg/dL 0.0-12.0 [facility] Urine protein/creatinine mas s ratioOrdered By: Martina Lal on 10-12-2024 Protein/Creatinine (U) [Mass ratio] UNABLE TO CALCULATE mg/g CRE 0-200 [facility] Urine specific gravity measu rementOrdered By: Martina Lal on 10-12-2024 Specific gravity (U) [Rel density] 1.010 1.002-1.[address] [facility] Urine urobilinogen measureme ntOrdered By: Martina Lal on 10-12-2024 Urobilinogen Ql (U) Normal mg/dl Normal [facility] Urobilinogen Ql (U)Ordered B y: Martina Lal on 10-12-2024 Urine Urobilinogen Normal mg/dl Normal [facility] Vitamin D, 25-hydroxyOrdered By: Martina Lal on 10-12-2024 Vitamin D 25-Hydroxy 63.5 ng/mL 30-100 [facility] Comment on above: Vitamin D StatusDefi ciency: <20 ng/mL (50nmol/L)Insufficiency: 20-30 ng/mL (50-75 nmol/L)Sufficiency: 30-100 ng/mL (75-250 nmol/L)Toxicity: >100 ng/mL (>250 nmol/L) White blood cell (WBC) count Ordered By: Martina Lal on 10-12-2024 WBC (Bld) [#/Vol] 9.0 10*3/uL 4.4-11.0 [facility] Breast imaging reportOrdered By: Reid Hernandez on 10-08-2024 Study report [facility] [address] [place] [address] SCRN MAMM (CAD)W/ROBINSON BILAT MR#: [id number] Acct: [id number] Name: DEBBIE MIRELES Rep #: [id number] : 1935 F 89 From: Contreras Hernandez MD PCP: Dr. Martina Lal DO Status: RE G CLI Study:SCRN MAMM (CAD)W/ROBINSON BILAT Date of Exa m: 10/07/24 Exam# [id number] Ordering Dr: Saul Lal DO EXAM: SCRN [...] be mailed to the patient. Reading Location: [facility] CC: Dr. 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 Abdomen without IV Contrasto n 10-07-2024 Abdomen without IV Contrast [facility] [address] [place] [address] Abdomen without IV Contrast MR#: [id number] Acct: [id number] Name: DEBBIE MIRELES Rep #: [id number] : 1935 F 89 From: Reid corea MD PCP: Dr. Martina Lal DO Status: REG CLI Study: Abdomen without IV Contrast Date of Exam: 09/19 Exam# [id number] Ordering Dr: Martina Lal DO PROCEDURE: ABDOMEN [...] abdominal wall fat containing hernia. Reading Location: [facility] CC: Dr. Martina Lal DO Forging Press Setter Up: Signed Normal [facility] SCRN MAMM (CAD)W/ROBINSON BILATo n 10-07-2024 SCRN MAMM (CAD)W/ROBINSON BILAT [facility] [address] [place] [address] SCRN MAMM (CAD)W/ROBINSON BILAT MR#: [id number] Acct: [id number] Name: DEBBIE MIRELES Rep #: [id number] : 1935 F 89 From: Reid corea MD PCP: Dr. Martina Lal DO Status: REG CLI Study: SCRN MAMM (CAD)W/ROBINSON BILAT Date of Exam: 09/19 Exam# [id number] Ordering Dr: Martina Lal DO EXAM: SCRN [...] be mailed to the patient. Reading Location: [facility] CC: Dr. Martina Lal DO Forging Press Setter Up: Signed Normal [facility] Cardiology Visit Reporton Cardiology Visit Report [facility] [address] [place] [address] OFFICE VISIT Date of Service: 08/17/24 MR#: [id number] Acct: [id number] Name: DEBBIE MIRELES Rep #: [id number] : 1935 Provider: PADMINI Jean Baptiste Age/Sex: 89/F Location: [facility] Status: Signed HPI HPI History of Present [...] over her body. She has seen a crystal grinder in it was felt that this was probably medication induced. She is requesting to stop losartan because she is read on the Internet that it can cause strokes and renal failure. She is also on an extensive list of uzgt-bwa-vbyswvr herbal and none herbal supplements. The patient [...] 96 Intake Visit Reasons: 3 M FU [place] Operator Required: No Is patient in pain?: No [...] of cholecystectomy (more content not included)... Normal [facility] MR/BMS.BVAlexander 08-09-2024 MR/BMS.BVS [facility] [address] [place] [address] OFFICE VISIT Date of Service: 08/09/24 MR#: [id number] Acct: [id number] Name: DEBBIE MIRELES Rep #: [id number] : 1935 Provider: Dr. Willy Trimble MD Age/Sex: 89/F Location: [facility] Status: Signed Intake Vital Signs 04/28/24 14:25 [...] blood t (more content not included)... Normal [facility] PT D/C Summary (1)on 024 PT D/C Summary (1) [facility] Physical Therapy [facility] [address] [place] [address] [address] [place] [address] / REHABILITATION SERVICES DISCHARGE SUMMARY MR#: [id number] Acct: [id number] Name: DEBBIE MIRELES Rep #: [id number] : 1935 88 From: Willy Vance DPT, OCS, CSCS Referring Dr.: Dr. Tamra Francis MD Status: REG R Insurance: [facility] 05/21/18 SELF PAY INSURANCE Discharge Summary D/C [...] please feel free to call me at [phone]. Thank you for the referral of this patient. Sincerely, Willy Vance, NORA, OCS, CSCS Balance/Gait/Function al tests Balance/Special Test Scores Oswestry Low Back Score: 15 Improvement % Improvement: 0 07/01/24 1159 CC: Dr. Tamra Francis MD; Dr. Martina Lal DO EBG Signed Normal [facility] Inital Evaluation (1) - PTon 05-18-2024 Inital Evaluation (1) - PT [facility] [address] [place] [address]. [address] [place] [address] / REHABILITATION SERVICES INITIAL EVALUATION MR#: [id number] Acct: [id number] Name: DEBBIE MIRELES Rep #: [id number] : 1935 88 From: Willy BESTT, OCS, CSCS Referring Dr.: Dr. Tamra Francis MD Status: REG RCR Insurance: [facility] 05/21/18 SELF PAY INSURANCE Patient's Visit Information Visit Information Visit Information: DEBBIE MIRELES is a 88 year old F referred to Physical Therapy by Dr. Tamra Francis MD with a diagnosis of Back pain. Date of Evaluation: 05/18/24 Physical Therapist: Willy Vance, DPT, OCS, CSCS Visit Plan Frequency: 2x [...] on toilet in am. Lukasz sent to [facility], he has given injections in back which did not help much. Gave gabapentin but not taking due to risks. Pain has been ribbon blocker over 2 yrs. As she gets going [...] to be FAXED BACK to us at [phone] for Medicare purposes. For Medicare only, by signing this I certify the plan of care. Please let me know if there are questions or concerns regarding this plan of care. Physician Signature: Date : 05/18/24 1231 CC: Dr. Tamra Francis MD; Dr. Martina Lal DO EBG Signed Normal [facility] Carotid Duplex Ultrasoundon 04-30-2024 Carotid Duplex Ultrasound [facility] [address] [place] [address] Carotid Duplex Ultrasound 04/30/24 0956 MR#: [id number] Acct: [id number] Name: DEBBIE MIRELES Rep #: [id number] : 1935 88 From: Willy Trimble MD Attending Dr: Dr. Willy Trimble MD Status: REG C SHELL Ordering Dr: Willy Trimble MD Date: 04/30/24 [...] the left vertebral artery. Procedure Carotid Duplex 15398. This is a Carotid Duplex examination using B-mode, color flow and specral Doppler. The exam was diagnostic. Exam performed in department. VL/Carotid Duplex Ultrasound Interpretation Summary Mild (<50%) stenosis right extracranial internal carotid. Severe (>70%) stenosis left extracranial internal carotid. Patent and antegrade vertebrals bilaterally. Ordering Physician: Willy Trimble Referring Physician: Martina Lal M.D. Performed By: George Rader RVT 05/03/24 0759 Date Willy Trimble MD CC: Dr. Willy Trimble MD; Dr. Martina Lal DO Date Dictated: 04/30/24 0956 Date Transcribed: 05/03/24758 Forging Press Setter Up: Signed Normal [facility] Cardiology Visit Reporton Cardiology Visit Report [facility] [address] [place] [address] OFFICE VISIT Date of Service: 04/28/24 MR#: [id number] Acct: [id number] Name: DEBBIE MIRELES Jana Rep #: [id number] : 1935 Provider: Dr. Felice ji MD Age/Sex: 88/F Location: [facility] Status: Signed HPI [facility] History of Present Illness Details: Patient 88-year-old [...] over her body. She has seen a crystal grinder in it was felt that this was probably medication induced. She is requesting to stop losartan because she is read on the Internet that it can cause strokes and renal failure. She is also on an extensive list of einp-dbu-kcqgmsy herbal and none herbal supplements. The patient [...] room air Intake Visit Reasons: 6 M [place] Operator Required: No Accompanied by: Self Is patient [...] % eye drops 1 drp EACH EYE [facility] Cataracts/Dry 07/29/14 04/28/24 History (Xalatan) eye cholecalciferol [...] PO DAILY SUPPLEMENT 03/17/24 04/28/24 History cardio [place] PO 04/28/24 04/28/24 History carvedilol 12.5 mg [...] Uncontrolled hyperten (more content not included)... Normal [facility] CBC W/Diff, Automatedon 02-20 0-2023 Absolute Lymph 2.20 X10 3/uL Normal 0.83-4.51 [facility] Comment on above: Performed By: #### L 100.0100, L500.4050, L502.0250, L500.4100, L501.9520, L400.0001, L506.1000 #### [facility] [address] [place], [address] Absolute Neut 5.2 X10 3/uL Normal 2.0-7.7 [facility] Comment on above: Performed By: #### L 100.0100, L500.4050, L502.0250, L500.4100, L501.9520, L400.0001, L506.1000 #### [facility] [address] [place], [address] Basophils/100 WBC (Bld) 0.6 % Normal 0-[address] [facility] Comment on above: Performed By: #### L 100.0100, L500.4050, L502.0250, L500.4100, L501.9520, L400.0001, L506.1000 #### [facility] [address] [place], [address] Eosinophils/100 WBC (Bld) 1.7 % Normal 0-5 [facility] Comment on above: Performed By: #### L 100.0100, L500.4050, L502.0250, L500.4100, L501.9520, L400.0001, L506.1000 #### [facility] [address] [place], [address] Erythrocyte distribution width (RBC) [Ratio] 14.4 % Normal 11.6-14.6 [facility] Comment on above: Performed By: #### L 100.0100, L500.4050, L502.0250, L500.4100, L501.9520, L400.0001, L506.1000 #### [facility] [address] [place], [address] Hematocrit (Bld) [Volume fraction] 38.8 % Normal 37-47 [facility] Comment on above: Performed By: #### L 100.0100, L500.4050, L502.0250, L500.4100, L501.9520, L400.0001, L506.1000 #### [facility] [address] [place], [address] Hemoglobin (Bld) [Mass/Vol] 12.9 g/dL Normal 12.0-15.0 [facility] Comment on above: Performed By: #### L 100.0100, L500.4050, L502.0250, L500.4100, L501.9520, L400.0001, L506.1000 #### [facility] [address] [place], [address] IG% 0.400 Normal 0.0-0.9 [facility] Comment on above: Result Comment: IG% - Immature Granulocytes (promyelocytes, myelocytes and metamyelocytes) > 1% indicates that a LEFT SHIFT is Present. Performed By: #### L 100.0100, L500.4050, L502.0250, L500.4100, L501.9520, L400.0001, L506.1000 #### [facility] [address] [place], [address] Lymphocytes/100 WBC (Bld) 26.5 % Normal 19-41 [facility] Comment on above: Performed By: #### L 100.0100, L500.4050, L502.0250, L500.4100, L501.9520, L400.0001, L506.1000 #### [facility] [address] [place], [address] MCH (RBC) [Entitic mass] 29.3 pg Normal 27.0-32.0 [facility] Comment on above: Performed By: #### L 100.0100, L500.4050, L502.0250, L500.4100, L501.9520, L400.0001, L506.1000 #### [facility] [address] [place], [address] MCHC (RBC) [Mass/Vol] 33.2 g/dL Normal 32-36 [facility] Comment on above: Performed By: #### L 100.0100, L500.4050, L502.0250, L500.4100, L501.9520, L400.0001, L506.1000 #### [facility] [address] [place], [address] MCV (RBC) [Entitic vol] 88.0 fL Normal 81-[address] [facility] Comment on above: Performed By: #### L 100.0100, L500.4050, L502.0250, L500.4100, L501.9520, L400.0001, L506.1000 #### [facility] [address] [place], [address] Monocytes/100 WBC (Bld) 7.9 % Normal 0-[address] [facility] Comment on above: Performed By: #### L 100.0100, L500.4050, L502.0250, L500.4100, L501.9520, L400.0001, L506.1000 #### [facility] [address] [place], [address] Neutrophils/100 WBC (Bld) 62.9 % Normal 47-70 [facility] Comment on above: Performed By: #### L 100.0100, L500.4050, L502.0250, L500.4100, L501.9520, L400.0001, L506.1000 #### [facility] [address] [place], [address] Nucleated RBC (Bld) [#/Vol] 0 10*3/uL Normal 0-5 [facility] Comment on above: Performed By: #### L 100.0100, L500.4050, L502.0250, L500.4100, L501.9520, L400.0001, L506.1000 #### [facility] [address] [place], [address] Platelet mean volume (Bld) [Entitic vol] 10.0 fL Normal 6.2-12.0 [facility] Comment on above: Performed By: #### L 100.0100, L500.4050, L502.0250, L500.4100, L501.9520, L400.0001, L506.1000 #### [facility] [address] [place], [address] Platelets (Bld) [#/Vol] 291 10*3/uL Normal 150-450 [facility] Comment on above: Performed By: #### L 100.0100, L500.4050, L502.0250, L500.4100, L501.9520, L400.0001, L506.1000 #### [facility] [address] [place], [address] RBC (Bld) [#/Vol] 4.41 10*6/uL Normal 4.2-5.4 [facility] Comment on above: Performed By: #### L 100.0100, L500.4050, L502.0250, L500.4100, L501.9520, L400.0001, L506.1000 #### [facility] [address] [place], [address] RDW SD 46.6 fl High 35.1-43.9 [facility] Comment on above: Performed By: #### L 100.0100, L500.4050, L502.0250, L500.4100, L501.9520, L400.0001, L506.1000 #### [facility] [address] [place], [address] WBC (Bld) [#/Vol] 8.3 10*3/uL Normal 4.4-11.0 [facility] Comment on above: Performed By: #### L 100.0100, L500.4050, L502.0250, L500.4100, L501.9520, L400.0001, L506.1000 #### [facility] [address] [place], [address] Comprehensive Metabolic Prof ilon 03-19-2024 Albumin [Mass/Vol] 3.0 g/dL Low 3.2-5.0 [facility] Comment on above: Performed By: #### L 100.0100, L500.4050, L502.0250, L500.4100, L501.9520, L400.0001, L506.1000 #### [facility] [address] [place], [address] Albumin/Globulin [Mass ratio] 0.8 {ratio} Low 0.9-2.4 [facility] Comment on above: Performed By: #### L 100.0100, L500.4050, L502.0250, L500.4100, L501.9520, L400.0001, L506.1000 #### [facility] [address] [place], [address] ALK P 75 U/L Normal 45-117 [facility] Comment on above: Performed By: #### L 100.0100, L500.4050, L502.0250, L500.4100, L501.9520, L400.0001, L506.1000 #### [facility] [address] [place], [address] ALT [Catalytic activity/Vol] 21 U/L Normal 13-56 [facility] Comment on above: Performed By: #### L 100.0100, L500.4050, L502.0250, L500.4100, L501.9520, L400.0001, L506.1000 #### [facility] [address] [place], [address] AST [Catalytic activity/Vol] 15 U/L Normal 15-37 [facility] Comment on above: Performed By: #### L 100.0100, L500.4050, L502.0250, L500.4100, L501.9520, L400.0001, L506.1000 #### [facility] [address] [place], [address] Bilirubin [Mass/Vol] 0.80 mg/dL Normal 0.20-1.00 [facility] Comment on above: Result Comment: For patients on eltrombopag therapy, use of Dimension Onward TBIL is not recommended. Performed By: #### L 100.0100, L500.4050, L502.0250, L500.4100, L501.9520, L400.0001, L506.1000 #### [facility] [address] [place], [address] BUN/CRE 30.9 RATIO High 10-20 [facility] Comment on above: Performed By: #### L 100.0100, L500.4050, L502.0250, L500.4100, L501.9520, L400.0001, L506.1000 #### [facility] [address] [place], [address] CA,Total 10.1 mg/dL Normal 8.5-10.1 [facility] Comment on above: Performed By: #### L 100.0100, L500.4050, L502.0250, L500.4100, L501.9520, L400.0001, L506.1000 #### [facility] [address] [place], [address] Chloride [Moles/Vol] 109 mmol/L High 98-107 [facility] Comment on above: Performed By: #### L 100.0100, L500.4050, L502.0250, L500.4100, L501.9520, L400.0001, L506.1000 #### [facility] [address] [place], [address] CO2 [Moles/Vol] 24.0 mmol/L Normal 21.0-32.0 [facility] Comment on above: Performed By: #### L 100.0100, L500.4050, L502.0250, L500.4100, L501.9520, L400.0001, L506.1000 #### [facility] [address] [place], [address] Creatinine [Mass/Vol] 1.23 mg/dL High 0.55-1.02 [facility] Comment on above: Result Comment: The validity of the calculated GFR GFRAA in patients over 70 years has not been determined. Clinical correlation is essential. Performed By: #### L 100.0100, L500.4050, L502.0250, L500.4100, L501.9520, L400.0001, L506.1000 #### [facility] [address] [place], [address] EST GFR - AA 53 mL/min Low >60 [facility] Comment on above: Result Comment: Afri can [place] GFR Calc Performed By: #### L 100.0100, L500.4050, L502.0250, L500.4100, L501.9520, L400.0001, L506.1000 #### [facility] [address] [place], [address] GAP 5 Normal 5-15 [facility] Comment on above: Performed By: #### L 100.0100, L500.4050, L502.0250, L500.4100, L501.9520, L400.0001, L506.1000 #### [facility] [facility] [address] [place], [address] GFR/1.73 sq M.predicted among non-blacks MDRD (S/P/Bld) [Vol rate/Area] 44 mL/min/{1.73_m2} Low >60 [facility] Comment on above: Result Comment: Non- GFR Calc Performed By: #### L 100.0100, L500.4050, L502.0250, L500.4100, L501.9520, L400.0001, L506.1000 #### [facility] [address] [place], [address] Globulin (S) [Mass/Vol] 4.0 g/dL Normal 2.2-4.2 [facility] Comment on above: Performed By: #### L 100.0100, L500.4050, L502.0250, L500.4100, L501.9520, L400.0001, L506.1000 #### [facility] [address] [place], [address] Glucose [Mass/Vol] 104 mg/dL Normal 74-106 [facility] Comment on above: Result Comment: Fast ing Glucose result from 100 to 125 mg/dL suggests IMPAIRED HOMEOSTASIS per A.D.A. criteria. Performed By: #### L 100.0100, L500.4050, L502.0250, L500.4100, L501.9520, L400.0001, L506.1000 #### [facility] [address] [place], [address] Potassium [Moles/Vol] 4.6 mmol/L Normal 3.5-5.1 [facility] Comment on above: Performed By: #### L 100.0100, L500.4050, L502.0250, L500.4100, L501.9520, L400.0001, L506.1000 #### [facility] [address] [place], [address] Sodium [Moles/Vol] 138 mmol/L Normal 136-145 [facility] Comment on above: Performed By: #### L 100.0100, L500.4050, L502.0250, L500.4100, L501.9520, L400.0001, L506.1000 #### [facility] [address] [place], [address] T PROT 7.0 g/dL Normal 6.4-8.2 [facility] Comment on above: Performed By: #### L 100.0100, L500.4050, L502.0250, L500.4100, L501.9520, L400.0001, L506.1000 #### [facility] [address] [place], [address] Urea nitrogen [Mass/Vol] 38 mg/dL High 7-18 [facility] Comment on above: Performed By: #### L 100.0100, L500.4050, L502.0250, L500.4100, L501.9520, L400.0001, L506.1000 #### [facility] [address] [place], [address] Lipid Profileon 03-19-2024 Cholesterol [Mass/Vol] 203 mg/dL High 200 [facility] Comment on above: Result Comment: <200 mg/dL Desirable 200-240 mg/dL Borderline >240 mg/dL High Risk Performed By: #### L 100.0100, L500.4050, L502.0250, L500.4100, L501.9520, L400.0001, L506.1000 ####[facility] [address] [place], [address] Cholesterol in HDL [Mass/Vol] 58 mg/dL Normal [facility] Comment on above: Result Comment: The drugs N-Acetylcysteine and Metamizole may falsely depress this assay. Reference Range HDL <40 mg/dL Low HDL Cholesterol HDL >or= 60 mg/dL High HDL Cholesterol Performed By: #### L 100.0100, L500.4050, L502.0250, L500.4100, L501.9520, L400.0001, L506.1000 ####[facility] [address] [place], [address] Cholesterol in LDL [Mass/Vol] 126 mg/dL Normal 0-130 [facility] Comment on above: Performed By: #### L 100.0100, L500.4050, L502.0250, L500.4100, L501.9520, L400.0001, L506.1000 ####[facility] [address] [place], [address] Cholesterol in VLDL [Mass/Vol] 19 mg/dL Normal 5-40 [facility] Comment on above: Performed By: #### L 100.0100, L500.4050, L502.0250, L500.4100, L501.9520, L400.0001, L506.1000 ####[facility] [address] [place], [address] Triglyceride [Mass/Vol] 93 mg/dL Normal [facility] Comment on above: Result Comment: The drugs N-Acetylcysteine and Metamizole may falsely depress this assay. Serum Triglycerides Reference Interval Normal <150 mg/dL Borderline high 150 - 199 mg/dL High 200 - 499 mg/dL Very High > or = 500 mg/dL Performed By: #### L 100.0100, L500.4050, L502.0250, L500.4100, L501.9520, L400.0001, L506.1000 ####[facility] [address] [place], [address] Microalb:Creat Ratio,Random URon 03-19-2024 Creatinine [Mass/Vol] 47.40 mg/dL Normal NO RAN GE EST. [facility] Comment on above: Performed By: #### L 100.0100, L500.4050, L502.0250, L500.4100, L501.9520, L400.0001, L506.1000 #### [facility] [address] [place], [address] MALB:CRE 104.2 mg/g CRE High <30 mg/g CRE [facility] Comment on above: Performed By: #### L 100.0100, L500.4050, L502.0250, L500.4100, L501.9520, L400.0001, L506.1000 #### [facility] [address] [place], [address] MICROALBUMIN,UR 49.4 mg/L Normal NO RANGE EST. [facility] Comment on above: Performed By: #### L 100.0100, L500.4050, L502.0250, L500.4100, L501.9520, L400.0001, L506.1000 #### [facility] [address] [place], [address] Thyroid Stim Hormone (TSH)on 03-19-2024 TSH 2.170 uIU/mL Normal 0.358-3.[address] [facility] Comment on above: Performed By: #### L 100.0100, L500.4050, L502.0250, L500.4100, L501.9520, L400.0001, L506.1000 ####[facility] [address] [place], [address] Urinalysis, Completeon 03-19 BACTERIA 0 SEEN Normal None Seen [facility] Comment on above: Order Comment: CLEAN CATCH Performed By: #### L 100.0100, L500.4050, L502.0250, L500.4100, L501.9520, L400.0001, L506.1000 ####[facility] [address] [place], [address] EPI,SQUAMOUS 0 SEEN Normal 5-10 [facility] Comment on above: Order Comment: CLEAN CATCH Performed By: #### L 100.0100, L500.4050, L502.0250, L500.4100, L501.9520, L400.0001, L506.1000 ####[facility] [address] [place], [address] Mucus Ql (Urine sed) 0 SEEN Normal [facility] Comment on above: Order Comment: CLEAN CATCH Performed By: #### L 100.0100, L500.4050, L502.0250, L500.4100, L501.9520, L400.0001, L506.1000 ####[facility] [address] [place], [address] RBC 0 SEEN Normal 0-5 [facility] Comment on above: Order Comment: CLEAN CATCH Performed By: #### L 100.0100, L500.4050, L502.0250, L500.4100, L501.9520, L400.0001, L506.1000 ####[facility] [address] [place], [address] WBC 0 SEEN Normal 0-5 [facility] Comment on above: Order Comment: CLEAN CATCH Performed By: #### L 100.0100, L500.4050, L502.0250, L500.4100, L501.9520, L400.0001, L506.1000 ####[facility] [address] [place], [address] Vitamin D,25 Hydroxyon 03-19 Vitamin D 25-OH 39.8 ng/mL Normal [facility] Comment on above: Result Comment: Swetha min D 25(OH) Status Range Deficiency <20 ng/mL (50nmol/L) Insufficiency 20 - 30 ng/mL (50 - 75 nmol/L) Sufficiency 30 - 100 ng/mL (75 - 250 nmol/L) Toxicity >100 ng/mL (>250 nmol/L) Performed By: #### L 100.0100, L500.4050, L502.0250, L500.4100, L501.9520, L400.0001, L506.1000 ####[facility] [address] [place], [address] Pulmonary Visit Reporton Pulmonary Visit Report [facility] [place] [address] [place] [address] OFFICE VISIT Date of Service: 03/17/24 MR#: [id number] Acct: [id number] Name: DEBBIE MIRELES Rep #: [id number] : 1935 Provider: ERIKA Mcdaniels Age/Sex: 88/F Location: [facility].PMW Status: Signed Assessment and Plan Assessment and [...] loss. Plan Details Follow Up: 6 Months ([facility]) HPI 6 M FU [...] air Intake Visit Reasons: 6 M FU [place] Operator Required: No DME Vendor: [employer] Accompanied by: Daughter Is patient in pain?: No Allergies clonidine (From Catapres) Allergy (Intermediate, Verified 03/17/24 12:42) Topical Reaction [...] 11/20/23 0 (more content not included)... Normal [facility] CBC-Complete Blood Cnt No Di ffon 03-15-2024 Erythrocyte distribution width (RBC) [Ratio] 14.6 % Normal 11.6-14.6 [facility] Comment on above: Performed By: #### L 500.3600, L100.0500, L501.0900 ####[facility] [address] [place], [place], [address] Hematocrit (Bld) [Volume fraction] 38.1 % Normal 37-47 [facility] Comment on above: Performed By: #### L 500.3600, L100.0500, L501.0900 ####[facility] [address] [place], [address] Hemoglobin (Bld) [Mass/Vol] 12.6 g/dL Normal 12.0-15.0 [facility] Comment on above: Performed By: #### L 500.3600, L100.0500, L501.0900 ####[facility] [address] [place], [address] MCH (RBC) [Entitic mass] 29.4 pg Normal 27.0-32.0 [facility] Comment on above: Performed By: #### L 500.3600, L100.0500, L501.0900 ####[facility] [address] [place], [address] MCHC (RBC) [Mass/Vol] 33.1 g/dL Normal 32-36 [facility] Comment on above: Performed By: #### L 500.3600, L100.0500, L501.0900 ####[facility] [address] [place], [address] MCV (RBC) [Entitic vol] 89.0 fL Normal 81-[address] [facility] Comment on above: Performed By: #### L 500.3600, L100.0500, L501.0900 ####[facility] [address] [place], [address] Platelet mean volume (Bld) [Entitic vol] 9.8 fL Normal 6.2-12.0 [facility] Comment on above: Performed By: #### L 500.3600, L100.0500, L501.0900 ####[facility] [address] [place], [address] Platelets (Bld) [#/Vol] 257 10*3/uL Normal 150-450 [facility] Comment on above: Performed By: #### L 500.3600, L100.0500, L501.0900 ####[facility] [address] [place], [address] RBC (Bld) [#/Vol] 4.28 10*6/uL Normal 4.2-5.4 [facility] Comment on above: Performed By: #### L 500.3600, L100.0500, L501.0900 ####[facility] [address] [place], [address] RDW SD 47.5 fl High 35.1-43.9 [facility] Comment on above: Performed By: #### L 500.3600, L100.0500, L501.0900 ####[facility] [address] [place], [address] WBC (Bld) [#/Vol] 8.4 10*3/uL Normal 4.4-11.0 [facility] Comment on above: Performed By: #### L 500.3600, L100.0500, L501.0900 ####[facility] [address] [place], [address] Protein+Creatinine Ratio,Uri neon 03-15-2024 PROT:CRE RATIO 204 mg/g CRE High 0-200 [facility] Comment on above: Performed By: #### L 500.3600, L100.0500, L501.0900 ####[facility] [address] [place], [address] Protein (U) [Mass/Vol] 8.4 mg/dL Normal <11.9 [facility] Comment on above: Performed By: #### L 500.3600, L100.0500, L501.0900 ####[facility] [address] [place], [address] UR CREAT 41.10 mg/dL Normal NO RANGE EST. [facility] Comment on above: Performed By: #### L 500.3600, L100.0500, L501.0900 ####[facility] [address] [place], [address] Renal Profileon 03-15-2024 Albumin [Mass/Vol] 2.8 g/dL Low 3.2-5.0 [facility] Comment on above: Performed By: #### L 500.3600, L100.0500, L501.0900 ####[facility] [address] [place], [address] BUN/CRE 25.4 RATIO High 10-20 [facility] Comment on above: Performed By: #### L 500.3600, L100.0500, L501.0900 ####[facility] [address] [place], [address] CA,Total 9.9 mg/dL Normal 8.5-10.1 [facility] Comment on above: Performed By: #### L 500.3600, L100.0500, L501.0900 ####[facility] [address] [place], [address] Chloride [Moles/Vol] 110 mmol/L High 98-107 [facility] Comment on above: Performed By: #### L 500.3600, L100.0500, L501.0900 ####[facility] [address] [place], [address] CO2 [Moles/Vol] 23.0 mmol/L Normal 21.0-32.0 [facility] Comment on above: Performed By: #### L 500.3600, L100.0500, L501.0900 ####[facility] [address] [place], [address] Creatinine [Mass/Vol] 1.30 mg/dL High 0.55-1.02 [facility] Comment on above: Result Comment: The validity of the calculated GFR GFRAA in patients over 70 years has not been determined. Clinical correlation is essential. Performed By: #### L 500.3600, L100.0500, L501.0900 ####[facility] [address] [place], [address] EST GFR - AA 50 mL/min Low >60 [facility] Comment on above: Result Comment: Afri can [place] GFR Calc Performed By: #### L 500.3600, L100.0500, L501.0900 ####[facility] [address] [place], [address] GFR/1.73 sq M.predicted among non-blacks MDRD (S/P/Bld) [Vol rate/Area] 41 mL/min/{1.73_m2} Low >60 [facility] Comment on above: Result Comment: Non- GFR Calc Performed By: #### L 500.3600, L100.0500, L501.0900 ####[facility] [address] [place], [address] Glucose [Mass/Vol] 81 mg/dL Normal 74-106 [facility] Comment on above: Performed By: #### L 500.3600, L100.0500, L501.0900 ####[facility] [address] [place], [address] Phosphate [Mass/Vol] 1.8 mg/dL Low 2.5-4.9 [facility] Comment on above: Performed By: #### L 500.3600, L100.0500, L501.0900 ####[facility] [address] [place], [address] Potassium [Moles/Vol] 4.3 mmol/L Normal 3.5-5.1 [facility] Comment on above: Performed By: #### L 500.3600, L100.0500, L501.0900 ####[facility] [address] [place], [address] Sodium [Moles/Vol] 140 mmol/L Normal 136-145 [facility] Comment on above: Performed By: #### L 500.3600, L100.0500, L501.0900 ####[facility] [address] [place], [address] Urea nitrogen [Mass/Vol] 33 mg/dL High 7-18 [facility] Comment on above: Performed By: #### L 500.3600, L100.0500, L501.0900 ####[facility] [address] [place], [address] Emergency Department Summary on 03-12-2024 Emergency Department Summary [facility] Medical Records Department [address] [facility] [place] [address] Emergency Department Summary 03/12/24 MR#: [id number] Acct: [id number] Name: DEBBIE MIRELES Rep #: [id number] : 1935 88 From: Tavon Dennis MD [...] Intermediate Topic (more content not included)... Normal [facility] Foot min 3 Viewson 4 Foot min 3 Views [facility] [address] [place] [address] Foot min 3 Views MR#: [id number] Acct: [id number] Name: DEBBIE MIRELES Jana Rep #: [id number] : 1935 F 88 From: Roger persaud MD PCP: Dr. Martina Lal, DO Status: REG ER Study: Foot min 3 Views Date of Exam: 03/12/24 Exam# [id number] Ordering Dr: Tavon Dennis MD [id number] INDICATION: Injury/Pain EXAMINATION/TECHNIQUE : X-RAY - LEFT XR Foot Min 3 Views COMPARISON: None. FINDINGS: No acute fracture or malalignment. No blastic or lytic lesions. Moderate scattered degenerative changes. The soft tissues are unremarkable. RAD/Foot min 3 Views IMPRESSION: No acute radiographic abnormalities. Electronically Signed: Roger Khoury MD at 20:21 EDT , CC: Dr. Martina Lal DO; Dr. Tavon Dennis MD [employer] Press Setter Up: Signed Normal [facility] Foot min 3 Views [facility] [address] [place] [address] 236921 Foot min 3 Views MR#: [id number] Acct: [id number] Name: DEBBIE MIRELES Rep #: [id number] : 1935 F 88 From: Roger persaud MD PCP: Dr. Martina Lal DO Status: REG ER Study: Foot min 3 Views Date of Exam: 03/12/24 Exam# [id number] Ordering Dr: Tavon Dennis MD [id number] INDICATION: Injury/Pain EXAMINATION/TECHNIQUE : X-RAY - RIGHT [...] Martina Lal DO; Dr. Tavon Dennis MD [employer] Press Setter Up: Signed Normal [facility] Femur Min 2 Viewson 03-08-20 Femur Min 2 Views [facility] [address] [place] [address] Femur Min 2 Views MR#: [id number] Acct: [id number] Name: DEBBIE MIRELES Rep #: [id number] : 1935 F 88 From: Viri Chi PCP: Dr. Martina Lal DO Status: REG CLI Study: Femur Min 2 Views Date of Exam: 03/08/24 Exam# [id number] Ordering Dr: Tamra Francis MD [id number] INDICATION: BILAT HIP PAIN EXAMINATION/TECHNIQUE : X-RAY [...] Signed: Viri Venegas MD at 7:52 EDT , CC: Dr. Tamra Francis MD; Dr. Martina Lal DO [employer] Setter Up: Signed Normal [facility] Femur Min 2 Views [facility] [address] [place] [address] Femur Min 2 Views MR#: [id number] Acct: [id number] Name: DEBBIE MIRELES Rep #: [id number] : 1935 F 88 From: Viri Chi PCP: Dr. Martina Lal DO Status: REG CLI Study: Femur Min 2 Views Date of Exam: 03/08/24 Exam# [id number] Ordering Dr: Tamra Francis MD [id number] INDICATION: HIP PAIN EXAMINATION/TECHNIQUE : X-RAY - [...] Signed: Viri Venegas MD at 7:51 EDT Reading Location ID and State: [facility] [place] / [place] Tel , Service support , CC: Dr. Tamra Francis MD; Dr. Martina Lal DO [employer] Setter Up: Signed Normal [facility] Basophil percentageOrdered B y: Dena Mengari on 11-12-2023 Basophil percentage 2.7 mg/dL 2.5-4.9 [place] Chloride [Moles/Vol] 110 mmol/L 98-[address] Glucose [Mass/Vol] 88 mg/dL 74-106 [place] Hemoglobin (Bld) [Mass/Vol] 12.3 g/dL 12.0-15.0 [facility] Potassium [Moles/Vol] 4.6 mmol/L 3.5-5.1 [facility] Sodium [Moles/Vol] 140 mmol/L 136-145 [facility] WBC (Bld) [#/Vol] 8.4 10*3/uL 4.4-11.0 [facility] Determination of erythrocyte mean corpuscular volume (MCV)Ordered By: Dena Kwok on 11-12-2023 MCV (RBC) [Entitic vol] 90.6 fL 81-[address] [facility] Erythrocyte distribution wid th ratioOrdered By: Dena Kwok on 11-12-2023 Erythrocyte distribution width (RBC) [Ratio] 14.0 % 11.6-14.6 [facility] Erythrocyte distribution wid th standard deviationOrdered By: Dena Kwok on 11-12-2023 Erythrocyte distribution width (RBC) [Entitic vol] 47.1 fL 35.1-43.9 [facility] Hematocrit Auto (Bld) [Volum e fraction]Ordered By: Dena Kwok on 11-12-2023 Hematocrit (Bld) [Volume fraction] 38.7 % 37-47 [facility] - Chemistry and C hemistry - challengeOrdered By: Dena Kwok on 11-12-2023 CO2 [Moles/Vol] 26.0 mmol/L 21.0-32.0 [facility] Urea nitrogen/Creatinine [Mass ratio] 31.3 mg/mg 10-20 [facility] - Hematology and Cell countsOrdered By: Dena Kwok on 11-12-2023 MCH (RBC) [Entitic mass] 28.8 pg 27.0-32.0 [facility] MCHC (RBC) [Mass/Vol] 31.8 g/dL 32-36 [facility] Platelet mean volume (Bld) [Entitic vol] 10.5 fL 6.2-12.0 [facility] Platelets (Bld) [#/Vol] 268 10*3/uL 150-450 [facility] No Panel InformationOrdered By: Dena Kwok on 11-12-2023 Estimated GFR (MDRD) Amer 42 mL/min >60 [facility] Comment on above: GFR Calc Estimated GFR (MDRD) Non-Af Amer 35 mL/min >60 [facility] Comment on above: Non- GFR Calc RBC Auto (Bld) [#/Vol]Ordere d By: Dena Kwok on 11-12-2023 RBC (Bld) [#/Vol] 4.27 10*6/uL 4.2-5.4 [facility] Serum or plasma calcium brian urement (mass/volume)Ordered By: Dena Kwok on 11-12-2023 Calcium [Mass/Vol] 9.8 mg/dL 8.5-10.1 [facility] Serum or plasma creatinine m easurement (mass/volume)Ordered By: Dena Kwok on 11-12-2023 Creatinine [Mass/Vol] 1.50 mg/dL 0.55-1.02 [facility] Comment on above: The validity of the calculated GFR & GFRAA in patients over 70 years has not been determined. Clinical correlation is essential. Serum or plasma urea nitroge n measurement (mass/volume)Ordered By: Dena Kwok on 11-12-2023 Urea nitrogen [Mass/Vol] 47 mg/dL 7-18 [facility] Thin prep Papanicolaou smear with manual screeningOrdered By: Dena Kwok on 11-12-2023 Protein (U) [Mass/Vol] 6.1 mg/dL 0.0-11.8 [facility] Thin prep Papanicolaou smear with manual screening 3.4 g/dL 3.2-5.0 [facility] Urine creatinine measurement (mass/volume)Ordered By: Dena Kwok on 11-12-2023 Creatinine (U) [Mass/Vol] 23.00 mg/dL NO RANGE EST. [facility] Urine protein/creatinine mas s ratioOrdered By: Dena Kwok on 11-12-2023 Protein/Creatinine (U) [Mass ratio] 265 mg/g CRE 0-200 [facility] Absolute lymphocyte countOrd ered By: Angely Carrizales on 10-24-2023 Lymphocytes Auto (Unsp spec) [#/Vol] 2.12 10*3/uL 0.83-4.51 [facility] Automated lymphocyte count a s percentage of total leukocytesOrdered By: Angelyarti Carrizales on 10-24-2023 Lymphocytes/100 WBC Auto (Unsp spec) 24.3 % 19-41 [facility] Basophil percentageOrdered B y: Angelyarti Carrizales on 10-24-2023 Basophils/100 WBC (Bld) 1.0 % 0-[address] [facility] Chloride [Moles/Vol] 109 mmol/L 98-107 [facility] Eosinophils/100 WBC (Bld) 3.0 % 0-5 [facility] Glucose [Mass/Vol] 120 mg/dL 74-106 [facility] Comment on above: Fasting Glucose resu lt from 100 to 125 mg/dL suggests IMPAIRED HOMEOSTASIS per A.D.A. criteria. Hemoglobin (Bld) [Mass/Vol] 11.3 g/dL 12.0-15.0 [facility] Monocytes/100 WBC (Bld) 8.7 % 0-[address] [facility] Neutrophils (Bld) [#/Vol] 5.5 10*3/uL 2.0-7.7 [facility] Neutrophils/100 WBC (Bld) 62.8 % 47-70 [facility] Potassium [Moles/Vol] 4.4 mmol/L 3.5-5.1 [facility] Sodium [Moles/Vol] 140 mmol/L 136-145 [facility] WBC (Bld) [#/Vol] 8.7 10*3/uL 4.4-11.0 [facility] Determination of erythrocyte mean corpuscular volume (MCV)Ordered By: Angely Carrizales on 10-24-2023 MCV (RBC) [Entitic vol] 89.2 fL 81-[address] [facility] Erythrocyte distribution wid th ratioOrdered By: [facility]2023 Erythrocyte distribution width (RBC) [Ratio] 13.9 % 11.6-14.6 [facility] Erythrocyte distribution wid th standard deviationOrdered By: [facility] on 10-24-2023 Erythrocyte distribution width (RBC) [Entitic vol] 45.9 fL 35.1-43.9 [facility] Hematocrit Auto (Bld) [Volum e fraction]Ordered By: Angely Carrizales on 10-24-2023 Hematocrit (Bld) [Volume fraction] 35.4 % 37-47 [facility] Immature granulocytes/100 WB C Auto (Bld)Ordered By: Angely Carrizales on 10-24-2023 Immature granulocytes/100 WBC (Bld) 0.200 % 0.0-0.9 [facility] Comment on above: IG% - Immature Granu locytes (promyelocytes, myelocytes and metamyelocytes) > 1% indicates that a LEFT SHIFT is Present. Laboratory - Chemistry and C hemistry - challengeOrdered By: Angely Carrizales on 10-24-2023 CO2 [Moles/Vol] 25.0 mmol/L 21.0-32.0 [facility] Natriuretic peptide B (Bld) [Mass/Vol] 151.4 pg/mL 0-100 [facility] Urea nitrogen/Creatinine [Mass ratio] 29.3 mg/mg 10-20 [facility] Laboratory - Hematology and Cell countsOrdered By: Angely Carrizales on 10-24-2023 MCH (RBC) [Entitic mass] 28.5 pg 27.0-32.0 [facility] MCHC (RBC) [Mass/Vol] 31.9 g/dL 32-36 [facility] Nucleated RBC/100 WBC (Bld) [Ratio] 0 % 0-5 [facility] Platelet mean volume (Bld) [Entitic vol] 10.2 fL 6.2-12.0 [facility] Platelets (Bld) [#/Vol] 276 10*3/uL 150-450 [facility] No Panel InformationOrdered By: Angely Carrizales on 10-24-2023 Estimated GFR (MDRD) Amer 42 mL/min >60 [facility] Comment on above: GFR Calc Estimated GFR (MDRD) Non-Af Amer 35 mL/min >60 [facility] Comment on above: Non- GFR Calc RBC Auto (Bld) [#/Vol]Ordere d By: Angely Carrizales on 10-24-2023 RBC (Bld) [#/Vol] 3.97 10*6/uL 4.2-5.4 [facility] Serum or plasma calcium brian urement (mass/volume)Ordered By: Angely Carrizales on 10-24-2023 Calcium [Mass/Vol] 9.8 mg/dL 8.5-10.1 [facility] Serum or plasma creatinine m easurement (mass/volume)Ordered By: Angely Carrizales on 10-24-2023 Creatinine [Mass/Vol] 1.50 mg/dL 0.55-1.02 [facility] Comment on above: The validity of the calculated GFR & GFRAA in patients over 70 years has not been determined. Clinical correlation is essential. Serum or plasma thyroid stim ulating hormone (TSH) measurement (units/volume)Ordered By: Angely All on 10-24-2023 TSH Qn 2.72 uIU/mL 0.358-3.74 [facility] Serum or plasma urea nitroge n measurement (mass/volume)Ordered By: Angelyarti Carrizales on 10-24-2023 Urea nitrogen [Mass/Vol] 44 mg/dL 7-18 [facility] Thin prep Papanicolaou smear with manual screeningOrdered By: [facility] Thin prep Papanicolaou smear with manual screening 6 5-15 [facility] Basophil percentageOrdered B y: Dena Kwok on 07-10-2023 Basophil percentage 2.9 mg/dL 2.5-4.9 [facility] Chloride [Moles/Vol] 110 mmol/L 98-107 [facility] Glucose [Mass/Vol] 73 mg/dL 74-106 [facility] Potassium [Moles/Vol] 4.5 mmol/L 3.5-5.1 [facility] Sodium [Moles/Vol] 140 mmol/L 136-145 [facility] WBC (Bld) [#/Vol] 8.2 10*3/uL 4.4-11.0 [facility] Blood erythrocytes count (nu mber/volume)Ordered By: Dena Kwok on 07-10-2023 RBC (Bld) [#/Vol] 4.30 10*6/uL 4.2-5.4 [facility] Blood hemoglobin measurement (mass/volume)Ordered By: Dena Kwok on 07-10-2023 Hemoglobin (Bld) [Mass/Vol] 12.7 g/dL 12.0-15.0 [facility] Blood platelet mean volumeOr dered By: Dena Kwok on 07-10-2023 Platelet mean volume (Bld) [Entitic vol] 10.5 fL 6.2-12.0 [facility] Determination of erythrocyte mean corpuscular volume (MCV)Ordered By: Dena Kwok on 07-10-2023 MCV (RBC) [Entitic vol] 91.2 fL 81-[address] [facility] Hematocrit Auto (Bld) [Volum e fraction]Ordered By: Dena Kwok on 07-10-2023 Hematocrit (Bld) [Volume fraction] 39.2 % 37-47 [facility] Laboratory - Chemistry and C hemistry - challengeOrdered By: Dena Kwok on 07-10-2023 CO2 [Moles/Vol] 23.0 mmol/L 21.0-32.0 [facility] Urea nitrogen/Creatinine [Mass ratio] 22.9 mg/mg 10-20 [facility] - Hematology and Cell countsOrdered By: Dena Kwok on 07-10-2023 Erythrocyte distribution width (RBC) [Entitic vol] 45.8 fL 35.1-43.9 [facility] Erythrocyte distribution width (RBC) [Ratio] 13.7 % 11.6-14.6 [facility] MCH (RBC) [Entitic mass] 29.5 pg 27.0-32.0 [facility] MCHC Auto (RBC) [Mass/Vol]Or dered By: Dena Kwok on 07-10-2023 MCHC (RBC) [Mass/Vol] 32.4 g/dL 32-36 [facility] No Panel InformationOrdered By: Dena Kwok on 07-10-2023 Estimated GFR (MDRD) Amer 56 mL/min >60 [facility] Comment on above: GFR Calc Estimated GFR (MDRD) Non-Af Amer 46 mL/min >60 [facility] Comment on above: Non- GFR Calc Parathyroid Hormone (Intact) 80.8 pg/mL 18.4-80.1 [facility] Vitamin D 25-Hydroxy 61.3 ng/mL [facility] Comment on above: Vitamin D 25(OH) Sta tus Range Deficiency <20 ng/mL (50nmol/L) Insufficiency 20 - 30 ng/mL (50 - 75 nmol/L) Sufficiency 30 - 100 ng/mL (75 - 250 nmol/L) Toxicity >100 ng/mL (>250 nmol/L) Platelets bldOrdered By: Miguel Angel Kwok on 07-10-2023 Platelets (Bld) [#/Vol] 263 10*3/uL 150-450 [facility] Serum or plasma albumin brian urement (mass/volume)Ordered By: Dena Kwok on 07-10-2023 Albumin [Mass/Vol] 3.3 g/dL 3.2-5.0 [facility] Serum or plasma calcium brian urement (mass/volume)Ordered By: Dena Kwok on 07-10-2023 Calcium [Mass/Vol] 9.9 mg/dL 8.5-10.1 [facility] Serum or plasma creatinine m easurement (mass/volume)Ordered By: Dena Kwok on 07-10-2023 Creatinine [Mass/Vol] 1.18 mg/dL 0.55-1.02 [facility] Comment on above: The validity of the calculated GFR & GFRAA in patients over 70 years has not been determined. Clinical correlation is essential. Serum or plasma urea nitroge n measurement (mass/volume)Ordered By: Dena Kwko on 07-10-2023 Urea nitrogen [Mass/Vol] 27 mg/dL 7-18 [facility] Urine creatinine measurement (mass/volume)Ordered By: Dena Kwok on 07-10-2023 Creatinine (U) [Mass/Vol] 26.30 mg/dL NO RANGE EST. [facility] Urine protein measurement (m ass/volume)Ordered By: Dena Kwok on 07-10-2023 Protein (U) [Mass/Vol] 9.1 mg/dL 0.0-11.8 [facility] Urine protein/creatinine mas s ratioOrdered By: Dena Kwok on 07-10-2023 Protein/Creatinine (U) [Mass ratio] 346 mg/g CRE 0-200 [facility] Basophil percentageOrdered B y: Louise Suarez on 05-07-2023 Creatinine [Mass/Vol] 0.9 mg/dL 0.55-1.02 [facility] No Panel InformationOrdered By: Louise Suarez on 05-07-2023 Bedside Estimated GFR (eGFR) > 60.0000 mL/min >60 [facility] Absolute lymphocyte countOrd ered By: Socorro Ivan on 03-11-2023 Lymphocytes Auto (Unsp spec) [#/Vol] 2.42 10*3/uL 0.83-4.51 [facility] Basophil percentageOrdered B y: Socorro Ivan on 03-11-2023 Basophils/100 WBC (Bld) 0.7 % 0-1 [facility] Bilirubin [Mass/Vol] 0.60 mg/dL 0.20-1.00 [facility] Comment on above: For patients on eltr ombopag therapy, use of Dimension Onward TBIL is not recommended. Chloride [Moles/Vol] 110 mmol/L 98-107 [facility] Eosinophils/100 WBC (Bld) 2.5 % 0-5 [facility] Glucose [Mass/Vol] 79 mg/dL 74-106 [facility] Neutrophils (Bld) [#/Vol] 5.3 10*3/uL 2.0-7.7 [facility] Neutrophils/100 WBC (Bld) 60.3 % 47-70 [facility] Potassium [Moles/Vol] 4.5 mmol/L 3.5-5.1 [facility] Protein [Mass/Vol] 7.4 g/dL 6.4-8.2 [facility] Sodium [Moles/Vol] 141 mmol/L 136-145 [facility] WBC (Bld) [#/Vol] 8.7 10*3/uL 4.4-11.0 [facility] Blood erythrocytes count (nu mber/volume)Ordered By: Socorro Ivan on 03-11-2023 RBC (Bld) [#/Vol] 4.19 10*6/uL 4.2-5.4 [facility] Blood hemoglobin measurement (mass/volume)Ordered By: Socorro Ivan on 03-11-2023 Hemoglobin (Bld) [Mass/Vol] 12.4 g/dL 12.0-15.0 [facility] Blood lymphocytes/100 leukoc ytesOrdered By: Socorro Ivan on 03-11-2023 Lymphocytes/100 WBC (Bld) 27.7 % 19-41 [facility] Blood monocytes/100 leukocyt esOrdered By: Socorro Ivan on 03-11-2023 Monocytes/100 WBC (Bld) 8.5 % 0-[address] [facility] Blood platelet mean volumeOr dered By: Socorro Ivan on 03-11-2023 Platelet mean volume (Bld) [Entitic vol] 10.2 fL 6.2-12.0 [facility] Determination of erythrocyte mean corpuscular volume (MCV)Ordered By: Socorro Ivan on 03-11-2023 MCV (RBC) [Entitic vol] 90.7 fL 81-[address] [facility] Hematocrit Auto (Bld) [Volum e fraction]Ordered By: Socorro Ivan on 03-11-2023 Hematocrit (Bld) [Volume fraction] 38.0 % 37-47 [facility] Laboratory - Chemistry and C hemistry - challengeOrdered By: [facility] on 03-11-2023 ALP [Catalytic activity/Vol] 81 U/L 45-117 [facility] ALT [Catalytic activity/Vol] 21 U/L 13-56 [facility] CO2 [Moles/Vol] 24.0 mmol/L 21.0-32.0 [facility] Globulin (S) [Mass/Vol] 3.9 g/dL 2.2-4.[address] [facility] Urea nitrogen/Creatinine [Mass ratio] 28.5 mg/mg 10-20 [facility] - Hematology and Cell countsOrdered By: [facility] on 03-11-2023 Erythrocyte distribution width (RBC) [Entitic vol] 43.9 fL 35.1-43.9 [facility] Erythrocyte distribution width (RBC) [Ratio] 13.2 % 11.6-14.6 [facility] Immature granulocytes/100 WBC (Bld) 0.300 % 0.0-0.9 [facility] Comment on above: IG% - Immature Granu locytes (promyelocytes, myelocytes and metamyelocytes) > 1% indicates that a LEFT SHIFT is Present. MCH (RBC) [Entitic mass] 29.6 pg 27.0-32.0 [facility] Nucleated RBC/100 WBC (Bld) [Ratio] 0 % 0-5 [facility] MCHC Auto (RBC) [Mass/Vol]Or dered By: Socorro Ivan on 03-11-2023 MCHC (RBC) [Mass/Vol] 32.6 g/dL 32-36 [facility] No Panel InformationOrdered By: Socorro Ivan on 03-11-2023 Estimated GFR (MDRD) Amer 50 mL/min >60 [facility] Comment on above: GFR Calc Estimated GFR (MDRD) Non-Af Amer 41 mL/min >60 [facility] Comment on above: Non- GFR Calc Platelets bldOrdered By: Abhinav Ivan on 03-11-2023 Platelets (Bld) [#/Vol] 272 10*3/uL 150-450 [facility] Serum or plasma albumin brian urement (mass/volume)Ordered By: Socorro Ivan on 03-11-2023 Albumin [Mass/Vol] 3.5 g/dL 3.2-5.0 [facility] Serum or plasma albumin/glob ulin mass ratioOrdered By: Socorro Ivan on 03-11-2023 Albumin/Globulin [Mass ratio] 0.9 {ratio} 0.9-2.4 [facility] Serum or plasma calcium brian urement (mass/volume)Ordered By: Socorro Ivan on 03-11-2023 Calcium [Mass/Vol] 10.2 mg/dL 8.5-10.1 [facility] Serum or plasma creatinine m easurement (mass/volume)Ordered By: Socorro Ivan on 03-11-2023 Creatinine [Mass/Vol] 1.30 mg/dL 0.55-1.02 [facility] Comment on above: The validity of the calculated GFR & GFRAA in patients over 70 years has not been determined. Clinical correlation is essential. Serum or plasma urea nitroge n measurement (mass/volume)Ordered By: Socorro Ivan on 03-11-2023 Urea nitrogen [Mass/Vol] 37 mg/dL 7-18 [facility] Thin prep Papanicolaou smear with manual screeningOrdered By: Socorro Ivan on 03-11-2023 Thin prep Papanicolaou smear with manual screening 18 U/L 15-37 [facility] Thin prep Papanicolaou smear with manual screening 7 5-15 [facility] Basophil percentageOrdered B y: Dena Kwok on 02-10-2023 Chloride [Moles/Vol] 111 mmol/L 98-107 [facility] Glucose [Mass/Vol] 94 mg/dL 74-106 [facility] Potassium [Moles/Vol] 4.5 mmol/L 3.5-5.1 [facility] Sodium [Moles/Vol] 140 mmol/L 136-145 [facility] Laboratory - Chemistry and C hemistry - challengeOrdered By: Dena Kwok on 02-10-2023 CO2 [Moles/Vol] 25.0 mmol/L 21.0-32.0 [facility] Urea nitrogen/Creatinine [Mass ratio] 27.3 mg/mg 10-20 [facility] No Panel InformationOrdered By: Dena Kwok on 02-10-2023 Estimated GFR (MDRD) Amer 51 mL/min >60 [facility] Comment on above: GFR Calc Estimated GFR (MDRD) Non-Af Amer 42 mL/min >60 [facility] Comment on above: Non- GFR Calc Serum or plasma calcium brian urement (mass/volume)Ordered By: Dena Kwok on 02-10-2023 Calcium [Mass/Vol] 9.5 mg/dL 8.5-10.1 [facility] Serum or plasma creatinine m easurement (mass/volume)Ordered By: Dena Kwok on 02-10-2023 Creatinine [Mass/Vol] 1.28 mg/dL 0.55-1.02 [facility] Comment on above: The validity of the calculated GFR & GFRAA in patients over 70 years has not been determined. Clinical correlation is essential. Serum or plasma urea nitroge n measurement (mass/volume)Ordered By: Dena Kwok on 02-10-2023 Urea nitrogen [Mass/Vol] 35 mg/dL 7-18 [facility] Thin prep Papanicolaou smear with manual screeningOrdered By: Dena Kwok on 02-10-2023 Thin prep Papanicolaou smear with manual screening 4 5-15 [facility] Basophil percentageOrdered B y: Dena Kwok on 01-10-2023 Chloride [Moles/Vol] 110 mmol/L 98-107 [facility] Glucose [Mass/Vol] 74 mg/dL 74-106 [facility] Potassium [Moles/Vol] 4.8 mmol/L 3.5-5.1 [facility] Sodium [Moles/Vol] 137 mmol/L 136-145 [facility] Laboratory - Chemistry and C hemistry - challengeOrdered By: Dena Kwok on 01-10-2023 CO2 [Moles/Vol] 22.0 mmol/L 21.0-32.0 [facility] Urea nitrogen/Creatinine [Mass ratio] 35.9 mg/mg 10-20 [facility] No Panel InformationOrdered By: Dena Kwok on 01-10-2023 Estimated GFR (MDRD) Amer 50 mL/min >60 [facility] Comment on above: GFR Calc Estimated GFR (MDRD) Non-Af Amer 41 mL/min >60 [facility] Comment on above: Non- GFR Calc Serum or plasma calcium brian urement (mass/volume)Ordered By: Dena Kwok on 01-10-2023 Calcium [Mass/Vol] 10.2 mg/dL 8.5-10.1 [facility] Serum or plasma creatinine m easurement (mass/volume)Ordered By: Dena Kwok on 01-10-2023 Creatinine [Mass/Vol] 1.31 mg/dL 0.55-1.02 [facility] Comment on above: The validity of the calculated GFR & GFRAA in patients over 70 years has not been determined. Clinical correlation is essential. Serum or plasma urea nitroge n measurement (mass/volume)Ordered By: Dena Kwok on 01-10-2023 Urea nitrogen [Mass/Vol] 47 mg/dL 7-18 [facility] Thin prep Papanicolaou smear with manual screeningOrdered By: Dena Kwok on 01-10-2023 Thin prep Papanicolaou smear with manual screening 5 5-15 [facility] Basophil percentageOrdered B y: Dr. Kwok on 11-11-2022 Chloride [Moles/Vol] 112 mmol/L 98-107 [facility] Glucose [Mass/Vol] 95 mg/dL 74-106 [facility] Potassium [Moles/Vol] 4.5 mmol/L 3.5-5.1 [facility] Sodium [Moles/Vol] 139 mmol/L 136-145 [facility] Laboratory - Chemistry and C hemistry - challengeOrdered By: Dr. Kwok on 11-11-2022 CO2 [Moles/Vol] 23.0 mmol/L 21.0-32.0 [facility] Urea nitrogen/Creatinine [Mass ratio] 36.1 mg/mg 10-20 [facility] No Panel InformationOrdered By: Dr. Kwok on 11-11-2022 Estimated GFR (MDRD) Amer 44 mL/min >60 [facility] Comment on above: GFR Calc Estimated GFR (MDRD) Non-Af Amer 37 mL/min >60 [facility] Comment on above: Non- GFR Calc Serum or plasma calcium brian urement (mass/volume)Ordered By: Dr. Kwok on 11-11-2022 Calcium [Mass/Vol] 10.3 mg/dL 8.5-10.1 [facility] Serum or plasma creatinine m easurement (mass/volume)Ordered By: Dr. Kwok on 11-11-2022 Creatinine [Mass/Vol] 1.44 mg/dL 0.55-1.02 [facility] Comment on above: The validity of the calculated GFR & GFRAA in patients over 70 years has not been determined. Clinical correlation is essential. Serum or plasma urea nitroge n measurement (mass/volume)Ordered By: Dr. Kwok on 11-11-2022 Urea nitrogen [Mass/Vol] 52 mg/dL - [facility] Thin prep Papanicolaou smear with manual screeningOrdered By: Dr. Kwok on 11-11-2022 Thin prep Papanicolaou smear with manual screening 4 5-15 [facility] Basophil percentageOrdered B y: Dr. Kwok on 10-10-2022 Chloride [Moles/Vol] 105 mmol/L 98-107 [facility] Glucose [Mass/Vol] 64 mg/dL 74-106 [facility] Potassium [Moles/Vol] 4.3 mmol/L 3.5-5.1 [facility] Sodium [Moles/Vol] 139 mmol/L 136-145 [facility] Laboratory - Chemistry and C hemistry - challengeOrdered By: Dr. Kwok on 10-10-2022 CO2 [Moles/Vol] 25.0 mmol/L 21.0-32.0 [facility] Urea nitrogen/Creatinine [Mass ratio] 36.4 mg/mg 10-20 [facility] No Panel InformationOrdered By: Dr. Kwok on 10-10-2022 Estimated GFR (MDRD) Amer 38 mL/min >60 [facility] Comment on above: GFR Calc Estimated GFR (MDRD) Non-Af Amer 31 mL/min >60 [facility] Comment on above: Non- GFR Calc Serum or plasma calcium brian urement (mass/volume)Ordered By: Dr. Kwok on 10-10-2022 Calcium [Mass/Vol] 10.4 mg/dL 8.5-10.1 [facility] Serum or plasma creatinine m easurement (mass/volume)Ordered By: Dr. Kwok on 10-10-2022 Creatinine [Mass/Vol] 1.65 mg/dL 0.55-1.02 [facility] Comment on above: The validity of the calculated GFR & GFRAA in patients over 70 years has not been determined. Clinical correlation is essential. Serum or plasma urea nitroge n measurement (mass/volume)Ordered By: Dr. Kwok on 10-10-2022 Urea nitrogen [Mass/Vol] 60 mg/dL 7-18 [facility] Thin prep Papanicolaou smear with manual screeningOrdered By: Dr. Kwok on 10-10-2022 Thin prep Papanicolaou smear with manual screening 9 5-15 [facility] Basophil percentageOrdered B y: Dr. Wihpple on 02-23-2023 Basophil percentage 77 mg/dL 74-106 [facility] Basophil percentage 135 mmol/L 136-145 [facility] Basophil percentage 4.6 mmol/L 3.5-5.1 [facility] Basophil percentage 105 mmol/L 98-107 [facility] Chloride [Moles/Vol] 105 mmol/L 98-107 [facility] Glucose [Mass/Vol] 77 mg/dL 74-106 [facility] Potassium [Moles/Vol] 4.6 mmol/L 3.5-5.1 [facility] Sodium [Moles/Vol] 135 mmol/L 136-145 [facility] Laboratory - Chemistry and C hemistry - challengeOrdered By: Dr. Whipple on 09-12-2022 CO2 [Moles/Vol] 22.0 mmol/L 21.0-32.0 [facility] Urea nitrogen/Creatinine [Mass ratio] 31.5 mg/mg 10-20 [facility] No Panel InformationOrdered By: Dr. Whipple on 09-12-2022 Estimated GFR (MDRD) Amer 37 mL/min >60 [facility] Comment on above: GFR Calc Estimated GFR (MDRD) Non-Af Amer 31 mL/min >60 [facility] Comment on above: Non- GFR Calc 31 mL/min >60 [facility] 37 mL/min >60 [facility] 31.5 RATIO 10-20 [facility] 22.0 mmol/L 21.0-32.0 [facility] Dehydroepiandrosterone Sulfate 90.4 ug/dL 13.9-142.8 [facility] Comment on above: Performed at: [facility] [employer] [address] [id number] Director: Miguel Garcia PhD, Phone: [phone] 90.4 ug/dL 13.9-142.8 [facility] Serum or plasma calcium brian urement (mass/volume)Ordered By: Dr. Whipple on 09-12-2022 Calcium [Mass/Vol] 10.5 mg/dL 8.5-10.1 [facility] Serum or plasma creatinine m easurement (mass/volume)Ordered By: Dr. Whipple on 09-12-2022 Creatinine [Mass/Vol] 1.68 mg/dL 0.55-1.02 [facility] Comment on above: The validity of the calculated GFR & GFRAA in patients over 70 years has not been determined. Clinical correlation is essential. Serum or plasma urea nitroge n measurement (mass/volume)Ordered By: Dr. Whipple on 09-12-2022 Urea nitrogen [Mass/Vol] 53 mg/dL 7-18 [facility] Thin prep Papanicolaou smear with manual screeningOrdered By: Dr. Whipple on 09-12-2022 Thin prep Papanicolaou smear with manual screening 8 5-15 [facility] Basophil percentageOrdered B y: Juani Maya on 08-08-2022 Basophil percentage 104 mg/dL 74-106 [facility] Basophil percentage 7.6 g/dL 6.4-8.2 [facility] Basophil percentage 2.4 mg/dL 2.5-4.9 [facility] Basophil percentage 0.90 mg/dL 0.20-1.00 [facility] Basophil percentage 139 mmol/L 136-145 [facility] Basophil percentage 4.3 mmol/L 3.5-5.1 [facility] Basophil percentage 105 mmol/L 98-107 [facility] Basophils (Bld) [#/Vol] 10.5 10*3/uL 4.4-11.0 [facility] Bilirubin [Mass/Vol] 0.90 mg/dL 0.20-1.00 [facility] Comment on above: For patients on eltr ombopag therapy, use of Dimension Onward TBIL is not recommended. Chloride [Moles/Vol] 105 mmol/L 98-107 [facility] Glucose [Mass/Vol] 104 mg/dL 74-106 [facility] Comment on above: Fasting Glucose resu lt from 100 to 125 mg/dL suggests IMPAIRED HOMEOSTASIS per A.D.A. criteria. Potassium [Moles/Vol] 4.3 mmol/L 3.5-5.1 [facility] Protein [Mass/Vol] 7.6 g/dL 6.4-8.2 [facility] Sodium [Moles/Vol] 139 mmol/L 136-145 [facility] WBC (Bld) [#/Vol] 10.5 10*3/uL 4.4-11.0 [facility] Blood erythrocytes count (nu mber/volume)Ordered By: Juani Maya on 08-08-2022 RBC (Bld) [#/Vol] 4.60 10*6/uL 4.2-5.4 [facility] Blood hemoglobin measurement (mass/volume)Ordered By: Juani Maya on 08-08-2022 Hemoglobin (Bld) [Mass/Vol] 13.5 g/dL 12.0-15.0 [facility] Blood platelet mean volumeOr dered By: Juani Maya on 08-08-2022 Platelet mean volume (Bld) [Entitic vol] 10.9 fL 6.2-12.0 [facility] Determination of erythrocyte mean corpuscular volume (MCV)Ordered By: Juani Maya on 08-08-2022 MCV (RBC) [Entitic vol] 88.9 fL 81-[address] [facility] Hematocrit Auto (Bld) [Volum e fraction]Ordered By: Juani Maya on 08-08-2022 Hematocrit (Bld) [Volume fraction] 40.9 % 37-47 [facility] - Chemistry and C hemistry - challengeOrdered By: Edgerton Zulma on 08-08-2022 ALP [Catalytic activity/Vol] 67 U/L 45-117 [facility] ALT [Catalytic activity/Vol] 30 U/L 13-56 [facility] CO2 [Moles/Vol] 25.0 mmol/L 21.0-32.0 [facility] Globulin (S) [Mass/Vol] 4.0 g/dL 2.2-4.[address] [facility] Urea nitrogen/Creatinine [Mass ratio] 21.9 mg/mg 10-20 [facility] - Hematology and Cell countsOrdered By: Juani Maya on 08-08-2022 Erythrocyte distribution width (RBC) [Entitic vol] 43.4 fL 35.1-43.9 [facility] Erythrocyte distribution width (RBC) [Ratio] 13.2 % 11.6-14.6 [facility] MCH (RBC) [Entitic mass] 29.3 pg 27.0-32.0 [facility] MCHC Auto (RBC) [Mass/Vol]Or dered By: Juani Maya on 08-08-2022 MCHC (RBC) [Mass/Vol] 33.0 g/dL 32-36 [facility] No Panel InformationOrdered By: Juani Maya on 08-08-2022 Estimated GFR (MDRD) Amer 37 mL/min >60 [facility] Comment on above: GFR Calc Estimated GFR (MDRD) Non-Af Amer 31 mL/min >60 [facility] Comment on above: Non- GFR Calc Parathyroid Hormone (Intact) 79.7 pg/mL 18.4-80.1 [facility] Vitamin D 25-Hydroxy 81.2 ng/mL [facility] Comment on above: Vitamin D 25(OH) Sta tus Range Deficiency <20 ng/mL (50nmol/L) Insufficiency 20 - 30 ng/mL (50 - 75 nmol/L) Sufficiency 30 - 100 ng/mL (75 - 250 nmol/L) Toxicity >100 ng/mL (>250 nmol/L) 29.3 pg 27.0-32.0 [facility] 13.2 % 11.6-14.6 [facility] 43.4 fl 35.1-43.9 [facility] 31 mL/min >60 [facility] 37 mL/min >60 [facility] 21.9 RATIO 10-20 [facility] 4.0 g/dL 2.2-4.2 [facility] 67 U/L 45-117 [facility] 30 U/L 13-56 [facility] 25.0 mmol/L 21.0-32.0 [facility] 81.2 ng/mL [facility] 79.7 pg/mL 18.4-80.1 [facility] Platelets bldOrdered By: Reji Maya on 08-08-2022 Platelets (Bld) [#/Vol] 251 10*3/uL 150-450 [facility] Serum or plasma albumin brian urement (mass/volume)Ordered By: Juani Maya on 08-08-2022 Albumin [Mass/Vol] 3.6 g/dL 3.2-5.0 [facility] Serum or plasma albumin/glob ulin mass ratioOrdered By: Juani Maya on 08-08-2022 Albumin/Globulin [Mass ratio] 0.9 {ratio} 0.9-2.4 [facility] Serum or plasma calcium brian urement (mass/volume)Ordered By: Juani Maya on 08-08-2022 Calcium [Mass/Vol] 10.3 mg/dL 8.5-10.1 [facility] Serum or plasma creatinine m easurement (mass/volume)Ordered By: Juani Maya on 08-08-2022 Creatinine [Mass/Vol] 1.69 mg/dL 0.55-1.02 [facility] Comment on above: The validity of the calculated GFR & GFRAA in patients over 70 years has not been determined. Clinical correlation is essential. Serum or plasma urea nitroge n measurement (mass/volume)Ordered By: Juani Maya on 08-08-2022 Urea nitrogen [Mass/Vol] 37 mg/dL 7-18 [facility] Thin prep Papanicolaou smear with manual screeningOrdered By: Juani Maya on 08-08-2022 Thin prep Papanicolaou smear with manual screening 20 U/L 15-37 [facility] Thin prep Papanicolaou smear with manual screening 9 5-15 [facility] Urine creatinine measurement (mass/volume)Ordered By: Juani Maya on 08-08-2022 Creatinine (U) [Mass/Vol] 29.90 mg/dL NO RANGE EST. [facility] Urine protein measurement (m ass/volume)Ordered By: Juani Maya on 08-08-2022 Protein (U) [Mass/Vol] mg/dL 0.0-11.8 [facility] Urine protein/creatinine mas s ratioOrdered By: Juani Maya on 08-08-2022 Protein/Creatinine (U) [Mass ratio] TNP [facility] Comment on above: Test not performed METABOLIC PANEL, BASIC ([id number])Ordered By: Lighting Fixture Installer on 07-30-2022 Calcium [Mass/Vol] 10.9 mg/dL Abnormal 8.7-10.3 [facility] Internal Medicine; [facility] Work Phone: Comment on above: PATIENT NOT FASTINGP ERFORMED BY: HALEIGH [facility] [id number] [place] [address] [id number] Chloride [Moles/Vol] 97 mmol/L Normal 96-106 Comp rehensive Internal Medicine; [facility] Work Phone: Comment on above: PATIENT NOT FASTINGP ERFORMED BY: CB [facility] [id number] [address] RoadDublin [place] [id number] CO2 [Moles/Vol] 21 mmol/L Normal 20-29 Comprehen sive Internal Medicine; [facility] Work Phone: Comment on above: PATIENT NOT FASTINGP ERFORMED BY: [facility] [id number] [facility] [id number] Creatinine [Mass/Vol] 1.51 mg/dL Abnormal 0.57-1.00 [facility] prehensive Internal Medicine; [facility] Work Phone: Comment on above: PATIENT NOT FASTINGP ERFORMED BY: [facility] [id number] [address] [facility] [id number] GFR/1.73 sq M.predicted among non-blacks MDRD (S/P/Bld) [Vol rate/Area] 33 mL/min/{1.73_m2} Abnormal Comprehensiv e Internal Medicine; [facility] Work Phone: Comment on above: PATIENT NOT FASTINGP ERFORMED BY: HALEIGH [facility] [id number] [address] [facility] [id number] Glucose [Mass/Vol] 78 mg/dL Normal 70-99 Compre [facility] Internal Medicine; [facility] Work Phone: Comment on above: PATIENT NOT FASTINGP ERFORMED BY: CB [facility] [id number] [address]in RoadQuorum Healthin [place] [id number] Potassium [Moles/Vol] 5.3 mmol/L Abnormal 3.5-5.2 Com prehensive Internal Medicine; [facility] Work Phone: Comment on above: PATIENT NOT FASTINGP ERFORMED BY: [facility] [id number] [address] RoadDuin [place] [id number] Sodium [Moles/Vol] 137 mmol/L Normal 134-144 Compre [facility] Internal Medicine; [facility] Work Phone: Comment on above: PATIENT NOT FASTINGP ERFORMED BY: HALEIGH [facility] [id number] [facility] [id number] Urea nitrogen [Mass/Vol] 34 mg/dL Abnormal 8-27 [facility]; [facility] Work Phone: Comment on above: PATIENT NOT FASTINGP ERFORMED BY: CB [facility] [id number] [facility] [id number] Urea nitrogen/Creatinine [Mass ratio] 23 mg/mg Normal 12-28 [facility]; [facility] Work Phone: Comment on above: PATIENT NOT FASTINGP ERFORMED BY: HALEIGH [facility] [id number] [facility] [id number] Basophil percentageOrdered B y: Dr. Lal on 07-23-2022 Basophil percentage 124 mg/dL 74-106 [facility] Basophil percentage 136 mmol/L 136-145 [facility] Basophil percentage 4.3 mmol/L 3.5-5.1 [facility] Basophil percentage 104 mmol/L 98-107 [facility] Basophils (Bld) [#/Vol] 11.2 10*3/uL 4.4-11.0 [facility] Chloride [Moles/Vol] 104 mmol/L 98-107 [facility] Glucose [Mass/Vol] 124 mg/dL 74-106 [facility] Comment on above: Fasting Glucose resu lt from 100 to 125 mg/dL suggests IMPAIRED HOMEOSTASIS per A.D.A. criteria. Potassium [Moles/Vol] 4.3 mmol/L 3.5-5.1 [facility] Sodium [Moles/Vol] 136 mmol/L 136-145 [facility] WBC (Bld) [#/Vol] 11.2 10*3/uL 4.4-11.0 [facility] Blood erythrocytes count (nu mber/volume)Ordered By: Dr. Lal on 07-23-2022 RBC (Bld) [#/Vol] 4.28 10*6/uL 4.2-5.4 [facility] Blood hemoglobin measurement (mass/volume)Ordered By: Dr. Lal on 07-23-2022 Hemoglobin (Bld) [Mass/Vol] 12.5 g/dL 12.0-15.0 [facility] Blood platelet mean volumeOr dered By: Dr. Lal on 07-23-2022 Platelet mean volume (Bld) [Entitic vol] 11.1 fL 6.2-12.0 [facility] Determination of erythrocyte mean corpuscular volume (MCV)Ordered By: Dr. Lal on 07-23-2022 MCV (RBC) [Entitic vol] 89.5 fL 81-[address] [facility] Hematocrit Auto (Bld) [Volum e fraction]Ordered By: Dr. Lal on 07-23-2022 Hematocrit (Bld) [Volume fraction] 38.3 % 37-47 [facility] - Chemistry and C hemistry - challengeOrdered By: Dr. Lal on 07-23-2022 CO2 [Moles/Vol] 25.0 mmol/L 21.0-32.0 [facility] Urea nitrogen/Creatinine [Mass ratio] 21.3 mg/mg 10-20 [facility] - Hematology and Cell countsOrdered By: Dr. Lal on 07-23-2022 Erythrocyte distribution width (RBC) [Entitic vol] 44.3 fL 35.1-43.9 [facility] Erythrocyte distribution width (RBC) [Ratio] 13.5 % 11.6-14.6 [facility] MCH (RBC) [Entitic mass] 29.2 pg 27.0-32.0 [facility] MCHC Auto (RBC) [Mass/Vol]Or dered By: Dr. Lal on 07-23-2022 MCHC (RBC) [Mass/Vol] 32.6 g/dL 32-36 [facility] No Panel InformationOrdered By: Dr. Lal on 07-23-2022 Estimated GFR (MDRD) Amer 41 mL/min >60 [facility] Comment on above: GFR Calc Estimated GFR (MDRD) Non-Af Amer 34 mL/min >60 [facility] Comment on above: Non- GFR Calc 29.2 pg 27.0-32.0 [facility] 13.5 % 11.6-14.6 [facility] 44.3 fl 35.1-43.9 [facility] 34 mL/min >60 [facility] 41 mL/min >60 [facility] 21.3 RATIO 10-20 [facility] 25.0 mmol/L 21.0-32.0 [facility] Platelets bldOrdered By: Dr. Lal on 07-23-2022 Platelets (Bld) [#/Vol] 282 10*3/uL 150-450 [facility] Serum or plasma calcium brian urement (mass/volume)Ordered By: Dr. Lal on 07-23-2022 Calcium [Mass/Vol] 10.8 mg/dL 8.5-10.1 [facility] Serum or plasma creatinine m easurement (mass/volume)Ordered By: Dr. Lal on 07-23-2022 Creatinine [Mass/Vol] 1.55 mg/dL 0.55-1.02 [facility] Comment on above: The validity of the calculated GFR & GFRAA in patients over 70 years has not been determined. Clinical correlation is essential. Serum or plasma urea nitroge n measurement (mass/volume)Ordered By: Dr. Lal on 07-23-2022 Urea nitrogen [Mass/Vol] 33 mg/dL 7-18 [facility] Thin prep Papanicolaou smear with manual screeningOrdered By: Dr. Lal on 07-23-2022 Thin prep Papanicolaou smear with manual screening 7 5-15 [facility] Absolute lymphocyte countOrd ered By: Dr. Luu on 07-17-2022 Lymphocytes Auto (Unsp spec) [#/Vol] 2.70 10*3/uL 0.83-4.51 [facility] Basophil percentageOrdered B y: Dr. Luu on 07-17-2022 Basophil percentage 105 mg/dL 74-106 [facility] Basophil percentage 137 mmol/L 136-145 [facility] Basophil percentage 4.6 mmol/L 3.5-5.1 [facility] Basophil percentage 108 mmol/L 98-107 [facility] Basophils (Bld) [#/Vol] 9.4 10*3/uL 4.4-11.0 [facility] Basophils (Bld) [#/Vol] 5.4 10*3/uL 2.0-7.7 [facility] Basophils/100 WBC (Bld) 0.5 % 0-[address] [facility] Basophils/100 WBC (Bld) 57.7 % 47-[address] [facility] Basophils/100 WBC (Bld) 3.5 % 0-[address] [facility] Chloride [Moles/Vol] 108 mmol/L 98-107 [facility] Eosinophils/100 WBC (Bld) 3.5 % 0-5 [facility] Glucose [Mass/Vol] 105 mg/dL 74-106 [facility] Comment on above: Fasting Glucose resu lt from 100 to 125 mg/dL suggests IMPAIRED HOMEOSTASIS per A.D.A. criteria. Neutrophils (Bld) [#/Vol] 5.4 10*3/uL 2.0-7.7 [facility] Neutrophils/100 WBC (Bld) 57.7 % 47-70 [facility] Potassium [Moles/Vol] 4.6 mmol/L 3.5-5.1 [facility] Sodium [Moles/Vol] 137 mmol/L 136-145 [facility] WBC (Bld) [#/Vol] 9.4 10*3/uL 4.4-11.0 [facility] Blood erythrocytes count (nu mber/volume)Ordered By: Dr. Luu on 07-17-2022 RBC (Bld) [#/Vol] 3.89 10*6/uL 4.2-5.4 [facility] Blood hemoglobin measurement (mass/volume)Ordered By: Dr. Luu on 07-17-2022 Hemoglobin (Bld) [Mass/Vol] 11.6 g/dL 12.0-15.0 [facility] Blood lymphocytes/100 leukoc ytesOrdered By: Dr. Luu on 07-17-2022 Lymphocytes/100 WBC (Bld) 28.6 % 19-41 [facility] Blood monocytes/100 leukocyt esOrdered By: Dr. Luu on 07-17-2022 Monocytes/100 WBC (Bld) 9.4 % 0-10 [facility] Blood platelet mean volumeOr dered By: Dr. Luu on 07-17-2022 Platelet mean volume (Bld) [Entitic vol] 10.1 fL 6.2-12.0 [facility] Determination of erythrocyte mean corpuscular volume (MCV)Ordered By: Dr. Luu on 07-17-2022 MCV (RBC) [Entitic vol] 90.7 fL 81-[address] [facility] Glucose Glucometer (BldC) [M ass/Vol]Ordered By: Dr. Luu on 07-17-2022 Glucose [Mass/Vol] 126 mg/dL 74-106 [facility] Comment on above: MANAGEMENT OF PATIEN T CARE PER NURSING PROTOCOL Hematocrit Auto (Bld) [Volum e fraction]Ordered By: Dr. Luu on 07-17-2022 Hematocrit (Bld) [Volume fraction] 35.3 % 37-47 [facility] - Chemistry and C hemistry - challengeOrdered By: Dr. Luu on 07-17-2022 CO2 [Moles/Vol] 25.0 mmol/L 21.0-32.0 [facility] Urea nitrogen/Creatinine [Mass ratio] 29.3 mg/mg 10-20 [facility] - Hematology and Cell countsOrdered By: Dr. Luu on 07-17-2022 Erythrocyte distribution width (RBC) [Entitic vol] 45.0 fL 35.1-43.9 [facility] Erythrocyte distribution width (RBC) [Ratio] 13.3 % 11.6-14.6 [facility] Immature granulocytes/100 WBC (Bld) 0.300 % 0.0-0.9 [facility] Comment on above: IG% - Immature Granu locytes (promyelocytes, myelocytes and metamyelocytes) > 1% indicates that a LEFT SHIFT is Present. MCH (RBC) [Entitic mass] 29.8 pg 27.0-32.0 [facility] Nucleated RBC/100 WBC (Bld) [Ratio] 0 % 0-5 [facility] MCHC Auto (RBC) [Mass/Vol]Or dered By: Dr. Luu on 07-17-2022 MCHC (RBC) [Mass/Vol] 32.9 g/dL 32-36 [facility] No Panel InformationOrdered By: Dr. Luu on 07-17-2022 Estimated Creatinine Clearance Calc 25.23 ml/min [facility] Estimated GFR (MDRD) Amer 53 mL/min >60 [facility] Comment on above: GFR Calc Estimated GFR (MDRD) Non-Af Amer 44 mL/min >60 [facility] Comment on above: Non- GFR Calc 29.8 pg 27.0-32.0 [facility] 13.3 % 11.6-14.6 [facility] 45.0 fl 35.1-43.9 [facility] 0.300 % 0.0-0.9 [facility] 0 % 0-5 [facility] 44 mL/min >60 [facility] 53 mL/min >60 [facility] 25.23 ml/min [facility] 29.3 RATIO 10-20 [facility] 25.0 mmol/L 21.0-32.0 [facility] Platelets bldOrdered By: Dr. Luu on 07-17-2022 Platelets (Bld) [#/Vol] 218 10*3/uL 150-450 [facility] Serum or plasma calcium brian urement (mass/volume)Ordered By: Dr. Luu on 07-17-2022 Calcium [Mass/Vol] 9.5 mg/dL 8.5-10.1 [facility] Serum or plasma creatinine m easurement (mass/volume)Ordered By: Dr. Luu on 07-17-2022 Creatinine [Mass/Vol] 1.23 mg/dL 0.55-1.02 [facility] Comment on above: The validity of the calculated GFR & GFRAA in patients over 70 years has not been determined. Clinical correlation is essential. Serum or plasma urea nitroge n measurement (mass/volume)Ordered By: Dr. Luu on 07-17-2022 Urea nitrogen [Mass/Vol] 36 mg/dL 7-18 [facility] Thin prep Papanicolaou smear with manual screeningOrdered By: Dr. Luu on 07-17-2022 Thin prep Papanicolaou smear with manual screening 4 5-15 [facility] Basophil percentageOrdered B y: Dr. Luu on 07-16-2022 Basophil percentage 3.2 mg/dL 2.5-4.9 [facility] Laboratory - Chemistry and C hemistry - challengeOrdered By: Dr. Luu on 07-16-2022 Magnesium [Mass/Vol] 2.6 mg/dL 1.6-2.6 [facility] No Panel InformationOrdered By: Dr. Luu on 07-16-2022 2.6 mg/dL 1.6-2.6 [facility] Basophil percentageOrdered B y: Dr. Mishra on 07-14-2022 Basophil percentage 6.4 g/dL 6.4-8.2 [facility] Basophil percentage 0.90 mg/dL 0.20-1.00 [facility] Bilirubin [Mass/Vol] 0.90 mg/dL 0.20-1.00 [facility] Comment on above: For patients on eltr ombopag therapy, use of Dimension Onward TBIL is not recommended. Protein [Mass/Vol] 6.4 g/dL 6.4-8.2 [facility] Laboratory - Chemistry and C hemistry - challengeOrdered By: Dr. Mishra on 07-14-2022 ALP [Catalytic activity/Vol] 61 U/L [facility] ALT [Catalytic activity/Vol] 20 U/L [facility] Globulin (S) [Mass/Vol] 3.5 g/dL 2.2-4.2 [facility] No Panel InformationOrdered By: Dr. Mishra on 07-14-2022 3.5 g/dL 2.2-4.2 [facility] 61 U/L [facility] 20 U/L [facility] Serum or plasma albumin brian urement (mass/volume)Ordered By: Dr. Mishra on 07-14-2022 Albumin [Mass/Vol] 2.9 g/dL 3.2-5.0 [facility] Serum or plasma albumin/glob ulin mass ratioOrdered By: Dr. Mishra on 07-14-2022 Albumin/Globulin [Mass ratio] 0.8 {ratio} 0.9-2.4 [facility] Thin prep Papanicolaou smear with manual screeningOrdered By: Dr. Mishra on 07-14-2022 Thin prep Papanicolaou smear with manual screening 13 U/L 15 [facility] Absolute lymphocyte counton 07-13-2022 Lymphocytes Auto (Unsp spec) [#/Vol] 3.16 10*3/uL 0.83-4.51 [facility] Work Phone: Basophil percentageon 2021 Potassium [Moles/Vol] 4.8 mmol/L 3.5-5.1 [facility] Work Phone: Comment on above: Moderate Hemolysis, Result may be falsely increased. Basophils/100 WBC (Bld) 0.9 % 0-[address] [facility] Work Phone: Bilirubin [Mass/Vol] 0.80 mg/dL 0.20-1.00 [facility] Work Phone: Comment on above: For patients on eltr ombopag therapy, use of Dimension Onward TBIL is not recommended. Chloride [Moles/Vol] 105 mmol/L 98-107 [facility] Work Phone: Eosinophils/100 WBC (Bld) 2.7 % 0-5 [facility] Work Phone: Glucose [Mass/Vol] 101 mg/dL 74-106 [facility] Work Phone: Comment on above: Fasting Glucose resu lt from 100 to 125 mg/dL suggests IMPAIRED HOMEOSTASIS per A.D.A. criteria. Neutrophils (Bld) [#/Vol] 4.5 10*3/uL 2.0-7.7 [facility] Work Phone: Neutrophils/100 WBC (Bld) 51.9 % 47-70 [facility] Work Phone: Protein [Mass/Vol] 7.4 g/dL 6.4-8.2 [facility] Work Phone: Sodium [Moles/Vol] 138 mmol/L 136-145 [facility] Work Phone: WBC (Bld) [#/Vol] 8.7 10*3/uL 4.4-11.0 [facility] Work Phone: Basophil percentageOrdered B y: Dr. Davila on 07-13-2022 Basophil percentage 0 SEEN /hpf 0-5 [facility] Bilirubin Test strip Ql (U)O rdered By: Dr. Davila on 07-13-2022 Bilirubin Ql (U) Negative Negative [facility] Blood erythrocytes count (nu mber/volume)on 07-13-2022 RBC (Bld) [#/Vol] 4.42 10*6/uL 4.2-5.4 [facility] Work Phone: Blood hemoglobin measurement (mass/volume)on 07-13-2022 Hemoglobin (Bld) [Mass/Vol] 13.1 g/dL 12.0-15.0 [facility] Work Phone: Blood lymphocytes/100 leukoc yteson 07-13-2022 Lymphocytes/100 WBC (Bld) 36.5 % 19-41 [facility] Work Phone: Blood monocytes/100 leukocyt eson 07-13-2022 Monocytes/100 WBC (Bld) 7.9 % 0-[address] [facility] Work Phone: Blood platelet mean volumeon 07-13-2022 Platelet mean volume (Bld) [Entitic vol] 11.1 fL 6.2-12.0 [facility] Work Phone: Determination of erythrocyte mean corpuscular volume (MCV)on 07-13-2022 MCV (RBC) [Entitic vol] 90.0 fL 81-[address] [facility] Work Phone: Hematocrit Auto (Bld) [Volum e fraction]on 07-13-2022 Hematocrit (Bld) [Volume fraction] 39.8 % 37-47 [facility] Work Phone: Influenza virus A and B and SARS-CoV-2 (COVID-19) Ag panel - Upper respiratory specimOrdered By: Dr. Davila on 07-13-2022 SARS-CoV-2 (COVID-19) RNA KAYLIE+probe Ql (Resp) [facility] Ketones Test strip Ql (U)Ord ered By: Dr. Davila on 07-13-2022 Ketones Ql (U) Negative Negative [facility] Laboratory - Chemistry and C hemistry - challengeon 07-13-2022 ALP [Catalytic activity/Vol] 69 U/L 45-117 [facility] Work Phone: ALT [Catalytic activity/Vol] 25 U/L 13-56 [facility] Work Phone: CO2 [Moles/Vol] 27.0 mmol/L 21.0-32.0 [facility] Work Phone: Globulin (S) [Mass/Vol] 4.1 g/dL 2.2-4.[address] [facility] Work Phone: Urea nitrogen/Creatinine [Mass ratio] 23.4 mg/mg 10-20 [facility] Work Phone: Laboratory - Chemistry and C hemistry - challengeOrdered By: Dr. Davila on 07-13-2022 Lipase [Catalytic activity/Vol] 127 U/L 73-393 [facility] - Hematology and Cell countson 07-13-2022 Erythrocyte distribution width (RBC) [Entitic vol] 44.9 fL 35.1-43.9 [facility] Work Phone: Erythrocyte distribution width (RBC) [Ratio] 13.4 % 11.6-14.6 [facility] Work Phone: Immature granulocytes/100 WBC (Bld) 0.100 % 0.0-0.9 [facility] Work Phone: Comment on above: IG% - Immature Granu locytes (promyelocytes, myelocytes and metamyelocytes) > 1% indicates that a LEFT SHIFT is Present. MCH (RBC) [Entitic mass] 29.6 pg 27.0-32.0 [facility] Work Phone: Nucleated RBC/100 WBC (Bld) [Ratio] 0 % 0-5 [facility] Work Phone: MCHC Auto (RBC) [Mass/Vol]on 07-13-2022 MCHC (RBC) [Mass/Vol] 32.9 g/dL 32-36 [facility] Work Phone: Mucus LM Ql (Urine sed)Order ed By: Dr. Davila on 07-13-2022 Mucus Ql (Urine sed) 0 SEEN /hpf [facility] Nitrite Test strip Ql (U)Ord ered By: Dr. Davila on 07-13-2022 Nitrite Ql (U) Negative Negative [facility] No Panel Informationon 07-13 Estimated Creatinine Clearance Calc 24.25 ml/min [facility] Work Phone: Estimated GFR (MDRD) Amer 51 mL/min >60 [facility] Work Phone: Comment on above: GFR Calc Estimated GFR (MDRD) Non-Af Amer 42 mL/min >60 [facility] Work Phone: Comment on above: Non- GFR Calc No Panel InformationOrdered By: Dr. Davila on 07-13-2022 Troponin I High Sensitivity 15 pg/mL 3.0-54.0 [facility] Comment on above: Please Note: New Sue t Units and Gender Specific Reference Ranges. For more information see Policy Stat Procedure Onward High Sensitivity Troponin (TNIH) and attachments. 127 U/L 73-393 [facility] 15 pg/mL 3.0-54.0 [facility] Platelets bldon 07-13-2022 Platelets (Bld) [#/Vol] 271 10*3/uL 150-450 [facility] Work Phone: Protein Test strip Ql (U)Ord ered By: Dr. Davila on 07-13-2022 Protein Ql (U) Negative Negative [facility] Serum or plasma albumin brian urement (mass/volume)on 07-13-2022 Albumin [Mass/Vol] 3.3 g/dL 3.2-5.0 [facility] Work Phone: Serum or plasma albumin/glob ulin mass ratioon 07-13-2022 Albumin/Globulin [Mass ratio] 0.8 {ratio} 0.9-2.4 [facility] Work Phone: Serum or plasma calcium brian urement (mass/volume)on 07-13-2022 Calcium [Mass/Vol] 10.3 mg/dL 8.5-10.1 [facility] Work Phone: Serum or plasma creatinine m easurement (mass/volume)on 07-13-2022 Creatinine [Mass/Vol] 1.28 mg/dL 0.55-1.02 [facility] Work Phone: Comment on above: The validity of the calculated GFR & GFRAA in patients over 70 years has not been determined. Clinical correlation is essential. Serum or plasma urea nitroge n measurement (mass/volume)on 07-13-2022 Urea nitrogen [Mass/Vol] 30 mg/dL 7-18 [facility] Work Phone: Squamous epithelial cells de tection in urine sediment by light microscopyOrdered By: Dr. Davila on 07-13-2022 Epithelial cells.squamous LM Ql (Urine sed) 0 SEEN /hpf 5-10 [facility] Thin prep Papanicolaou smear with manual screeningon 07-13-2022 Thin prep Papanicolaou smear with manual screening 19 U/L 15-37 [facility] Work Phone: Comment on above: Slight Hemolysis, Re sult may be falsely increased. Thin prep Papanicolaou smear with manual screening 6 5-15 [facility] Work Phone: Urine blood detectionOrdered By: Dr. Davila on 07-13-2022 RBC Ql (U) Negative Negative [facility] RBC Ql (U) 0 SEEN /hpf 0-5 [facility] Urine clarityOrdered By: Dr. Davila on 07-13-2022 Clarity (U) Clear Clear [facility] Urine color determinationOrd ered By: Dr. Davila on 07-13-2022 Color (U) Straw Yellow [facility] Urine glucose detectionOrder ed By: Dr. Davila on 07-13-2022 Glucose Ql (U) Normal mg/dl Normal [facility] Urine leukocyte esterase det ection by dipstickOrdered By: Dr. Davila on 07-13-2022 Leukocyte esterase Test strip Ql (U) Negative Negative [facility] Urine pHOrdered By: Dr. Hetal mccoy on 07-13-2022 pH (U) 7.0 [pH] 5.0 - 8.0 [facility] Urine sediment bacteria coun t by microscopy (number/high power field)Ordered By: Dr. Davila on 07-13-2022 Bacteria LM.HPF (Urine sed) [#/Area] 0 /[HPF] None Seen [facility] Urine specific gravity measu rementOrdered By: Dr. Davila on 07-13-2022 Specific gravity (U) [Rel density] 1.005 1.002-1.[address] [facility] Urobilinogen Auto test strip Ql (U)Ordered By: Dr. Davila on 07-13-2022 Urobilinogen Ql (U) Normal mg/dl Normal [facility] Absolute lymphocyte countOrd ered By: Dr. Gamez on 07-07-2022 Lymphocytes Auto (Unsp spec) [#/Vol] 2.93 10*3/uL 0.83-4.51 [facility] Basophil percentageOrdered B y: Dr. Gamez on 07-07-2022 Basophil percentage 115 mg/dL 74-106 [facility] Basophil percentage 136 mmol/L 136-145 [facility] Basophil percentage 4.0 mmol/L 3.5-5.1 [facility] Basophil percentage 101 mmol/L 98-107 [facility] Basophils (Bld) [#/Vol] 8.1 10*3/uL 4.4-11.0 [facility] Basophils (Bld) [#/Vol] 3.9 10*3/uL 2.0-7.7 [facility] Basophils/100 WBC (Bld) 0.7 % 0-[address] [facility] Basophils/100 WBC (Bld) 47.7 % 47-70 [facility] Basophils/100 WBC (Bld) 4.0 % 0-5 [facility] Chloride [Moles/Vol] 101 mmol/L 98-107 [facility] Eosinophils/100 WBC (Bld) 4.0 % 0-5 [facility] Glucose [Mass/Vol] 115 mg/dL 74-106 [facility] Comment on above: Fasting Glucose resu lt from 100 to 125 mg/dL suggests IMPAIRED HOMEOSTASIS per A.D.A. criteria. Neutrophils (Bld) [#/Vol] 3.9 10*3/uL 2.0-7.7 [facility] Neutrophils/100 WBC (Bld) 47.7 % 47-70 [facility] Potassium [Moles/Vol] 4.0 mmol/L 3.5-5.1 [facility] Sodium [Moles/Vol] 136 mmol/L 136-145 [facility] WBC (Bld) [#/Vol] 8.1 10*3/uL 4.4-11.0 [facility] Blood erythrocytes count (nu mber/volume)Ordered By: Dr. Gamez on 07-07-2022 RBC (Bld) [#/Vol] 3.95 10*6/uL 4.2-5.4 [facility] Blood hemoglobin measurement (mass/volume)Ordered By: Dr. Gamez on 07-07-2022 Hemoglobin (Bld) [Mass/Vol] 11.6 g/dL 12.0-15.0 [facility] Blood lymphocytes/100 leukoc ytesOrdered By: Dr. Gamez on 07-07-2022 Lymphocytes/100 WBC (Bld) 36.3 % 19-41 [facility] Blood monocytes/100 leukocyt esOrdered By: Dr. Gamez on 07-07-2022 Monocytes/100 WBC (Bld) 10.9 % 0-[address] [facility] Blood platelet mean volumeOr dered By: Dr. Gamez on 07-07-2022 Platelet mean volume (Bld) [Entitic vol] 10.4 fL 6.2-12.0 [facility] Determination of erythrocyte mean corpuscular volume (MCV)Ordered By: Dr. Gamez on 07-07-2022 MCV (RBC) [Entitic vol] 90.6 fL 81-[address] [facility] Glucose Glucometer (dC) [M ass/Vol]Ordered By: Dr. Gamez on 07-07-2022 Glucose [Mass/Vol] 123 mg/dL 74-106 [facility] Comment on above: MANAGEMENT OF PATIEN T CARE PER NURSING PROTOCOL Hematocrit Auto (Bld) [Volum e fraction]Ordered By: Dr. Gamez on 07-07-2022 Hematocrit (Bld) [Volume fraction] 35.8 % 37-47 [facility] Laboratory - Chemistry and C hemistry - challengeOrdered By: Dr. Gamez on 07-07-2022 CO2 [Moles/Vol] 29.0 mmol/L 21.0-32.0 [facility] Urea nitrogen/Creatinine [Mass ratio] 28.9 mg/mg 10- [facility] Laboratory - Hematology and Cell countsOrdered By: Dr. Gamez on 07-07-2022 Erythrocyte distribution width (RBC) [Entitic vol] 46.3 fL 35.1-43.9 [facility] Erythrocyte distribution width (RBC) [Ratio] 13.9 % 11.6-14.6 [facility] Immature granulocytes/100 WBC (Bld) 0.400 % 0.0-0.9 [facility] Comment on above: IG% - Immature Granu locytes (promyelocytes, myelocytes and metamyelocytes) > 1% indicates that a LEFT SHIFT is Present. MCH (RBC) [Entitic mass] 29.4 pg 27.0-32.0 [facility] Nucleated RBC/100 WBC (Bld) [Ratio] 0 % 0-5 [facility] MCHC Auto (RBC) [Mass/Vol]Or dered By: Dr. Gamez on 07-07-2022 MCHC (RBC) [Mass/Vol] 32.4 g/dL 32-36 [facility] No Panel InformationOrdered By: Dr. Gamez on 07-07-2022 Estimated Creatinine Clearance Calc 25.65 ml/min [facility] Estimated GFR (MDRD) Amer 54 mL/min >60 [facility] Comment on above: GFR Calc Estimated GFR (MDRD) Non-Af Amer 45 mL/min >60 [facility] Comment on above: Non- GFR Calc 29.4 pg 27.0-32.0 [facility] 13.9 % 11.6-14.6 [facility] 46.3 fl 35.1-43.9 [facility] 0.400 % 0.0-0.9 [facility] 0 % 0-5 [facility] 45 mL/min >60 [facility] 54 mL/min >60 [facility] 25.65 ml/min [facility] 28.9 RATIO 10- [facility] 29.0 mmol/L 21.0-32.0 [facility] Platelets bldOrdered By: Dr. Gamez on 07-07-2022 Platelets (Bld) [#/Vol] 219 10*3/uL 150-450 [facility] Serum or plasma calcium brian urement (mass/volume)Ordered By: Dr. Gamez on 07-07-2022 Calcium [Mass/Vol] 9.7 mg/dL 8.5-10.1 [facility] Serum or plasma creatinine m easurement (mass/volume)Ordered By: Dr. Gamez on 07-07-2022 Creatinine [Mass/Vol] 1.21 mg/dL 0.55-1.02 [facility] Comment on above: The validity of the calculated GFR & GFRAA in patients over 70 years has not been determined. Clinical correlation is essential. Serum or plasma urea nitroge n measurement (mass/volume)Ordered By: Dr. Gamez on 07-07-2022 Urea nitrogen [Mass/Vol] 35 mg/dL 02-04 [facility] Thin prep Papanicolaou smear with manual screeningOrdered By: Dr. Gamez on 07-07-2022 Thin prep Papanicolaou smear with manual screening 6 12-02 [facility] No Panel InformationOrdered By: Dr. Gamez on 07-04-2022 Troponin I High Sensitivity 12 pg/mL 3.0-54.0 [facility] Comment on above: Please Note: New Sue t Units and Gender Specific Reference Ranges. For more information see Policy Stat Procedure Onward High Sensitivity Troponin (TNIH) and attachments. 12 pg/mL 3.0-54.0 [facility] Absolute lymphocyte counton 07-02-2022 Lymphocytes Auto (Unsp spec) [#/Vol] 2.55 10*3/uL 0.83-4.51 [facility] Work Phone: Basophil percentageOrdered B y: Dr. Kingsley on 07-02-2022 Basophil percentage 0 SEEN /hpf 0-5 [facility] Basophil percentage 7.2 g/dL 6.4-8.2 [facility] Basophil percentage 1.10 mg/dL 0.20-1.00 [facility] Bilirubin [Mass/Vol] 1.10 mg/dL 0.20-1.00 [facility] Comment on above: For patients on eltr ombopag therapy, use of Dimension Onward TBIL is not recommended. Protein [Mass/Vol] 7.2 g/dL 6.4-8.2 [facility] Basophil percentageon 2021 Basophils/100 WBC (Bld) 0.7 % 0-[address] [facility] Work Phone: Chloride [Moles/Vol] 105 mmol/L 98-107 [facility] Work Phone: Eosinophils/100 WBC (Bld) 2.4 % 0-5 [facility] Work Phone: Glucose [Mass/Vol] 149 mg/dL 74-106 [facility] Work Phone: Comment on above: Fasting Glucose resu lt greater than or equal to 126 mg/dL suggests DIABETES MELLITUS per A.D.A. criteria. Neutrophils (Bld) [#/Vol] 4.9 10*3/uL 2.0-7.7 [facility] Work Phone: Neutrophils/100 WBC (Bld) 57.9 % 47-70 [facility] Work Phone: Potassium [Moles/Vol] 4.4 mmol/L 3.5-5.1 [facility] Work Phone: Sodium [Moles/Vol] 136 mmol/L 136-145 [facility] Work Phone: WBC (Bld) [#/Vol] 8.5 10*3/uL 4.4-11.0 [facility] Work Phone: Bilirubin Test strip Ql (U)O rdered By: Dr. Kingsley on 07-02-2022 Bilirubin Ql (U) Negative Negative [facility] Blood erythrocytes count (nu mber/volume)on 07-02-2022 RBC (Bld) [#/Vol] 4.12 10*6/uL 4.2-5.4 [facility] Work Phone: Blood hemoglobin measurement (mass/volume)on 07-02-2022 Hemoglobin (Bld) [Mass/Vol] 12.3 g/dL 12.0-15.0 [facility] Work Phone: Blood lymphocytes/100 leukoc yteson 07-02-2022 Lymphocytes/100 WBC (Bld) 30.0 % 19-41 [facility] Work Phone: Blood monocytes/100 leukocyt eson 07-02-2022 Monocytes/100 WBC (Bld) 8.8 % 0-[address] [facility] Work Phone: Blood platelet mean volumeon 07-02-2022 Platelet mean volume (Bld) [Entitic vol] 10.0 fL 6.2-12.0 [facility] Work Phone: Determination of erythrocyte mean corpuscular volume (MCV)on 07-02-2022 MCV (RBC) [Entitic vol] 89.6 fL 81-[address] [facility] Work Phone: Hematocrit Auto (Bld) [Volum e fraction]on 07-02-2022 Hematocrit (Bld) [Volume fraction] 36.9 % 37-47 [facility] Work Phone: Influenza virus A and B and SARS-CoV-2 (COVID-19) Ag panel - Upper respiratory specimOrdered By: Dr. Kingsley on 07-02-2022 SARS-CoV-2 (COVID-19) RNA KAYLIE+probe Ql (Resp) [facility] Ketones Test strip Ql (U)Ord ered By: Dr. Kingsley on 07-02-2022 Ketones Ql (U) Negative Negative [facility] Laboratory - Chemistry and C hemistry - challengeOrdered By: Dr. Kingsley on 07-02-2022 ALP [Catalytic activity/Vol] 67 U/L 45-117 [facility] ALT [Catalytic activity/Vol] 24 U/L 13-56 [facility] Globulin (S) [Mass/Vol] 3.9 g/dL 2.2-4.[address] [facility] Natriuretic peptide B (Bld) [Mass/Vol] 228.1 pg/mL 0-100 [facility] Laboratory - Chemistry and C hemistry - challengeon 07-02-2022 CO2 [Moles/Vol] 26.0 mmol/L 21.0-32.0 [facility] Work Phone: Urea nitrogen/Creatinine [Mass ratio] 16.8 mg/mg 10-20 [facility] Work Phone: Laboratory - Hematology and Cell countson 07-02-2022 Erythrocyte distribution width (RBC) [Entitic vol] 46.8 fL 35.1-43.9 [facility] Work Phone: Erythrocyte distribution width (RBC) [Ratio] 14.2 % 11.6-14.6 [facility] Work Phone: Immature granulocytes/100 WBC (Bld) 0.200 % 0.0-0.9 [facility] Work Phone: Comment on above: IG% - Immature Granu locytes (promyelocytes, myelocytes and metamyelocytes) > 1% indicates that a LEFT SHIFT is Present. MCH (RBC) [Entitic mass] 29.9 pg 27.0-32.0 [facility] Work Phone: Nucleated RBC/100 WBC (Bld) [Ratio] 0 % 0-5 [facility] Work Phone: MCHC Auto (RBC) [Mass/Vol]on 07-02-2022 MCHC (RBC) [Mass/Vol] 33.3 g/dL 32-36 [facility] Work Phone: Mucus LM Ql (Urine sed)Order ed By: Dr. Kingsley on 07-02-2022 Mucus Ql (Urine sed) 0 SEEN /hpf [facility] Nitrite Test strip Ql (U)Ord ered By: Dr. Kingsley on 07-02-2022 Nitrite Ql (U) Negative Negative [facility] No Panel Informationon 07-02 Estimated Creatinine Clearance Calc 24.83 ml/min [facility] Work Phone: Estimated GFR (MDRD) Amer 52 mL/min >60 [facility] Work Phone: Comment on above: GFR Calc Estimated GFR (MDRD) Non-Af Amer 43 mL/min >60 [facility] Work Phone: Comment on above: Non- GFR Calc No Panel InformationOrdered By: Dr. Kingsley on 07-02-2022 3.9 g/dL 2.2-4.2 [facility] 67 U/L 45-117 [facility] 24 U/L 13-56 [facility] 228.1 pg/mL 0-100 [facility] Platelets bldon 07-02-2022 Platelets (Bld) [#/Vol] 272 10*3/uL 150-450 [facility] Work Phone: Protein Test strip Ql (U)Ord ered By: Dr. Kingsley on 07-02-2022 Protein Ql (U) Negative Negative [facility] RSV Ag EIAOrdered By: Dr. Geno chandler on 07-02-2022 RSV Ag Immune stain Ql (Tiss) [facility] Serum or plasma albumin brian urement (mass/volume)Ordered By: Dr. Kingsley on 07-02-2022 Albumin [Mass/Vol] 3.3 g/dL 3.2-5.0 [facility] Serum or plasma albumin/glob ulin mass ratioOrdered By: Dr. Kingsley on 07-02-2022 Albumin/Globulin [Mass ratio] 0.8 {ratio} 0.9-2.4 [facility] Serum or plasma calcium brian urement (mass/volume)on 07-02-2022 Calcium [Mass/Vol] 10.1 mg/dL 8.5-10.1 [facility] Work Phone: Serum or plasma creatinine m easurement (mass/volume)on 07-02-2022 Creatinine [Mass/Vol] 1.25 mg/dL 0.55-1.02 [facility] Work Phone: Comment on above: The validity of the calculated GFR & GFRAA in patients over 70 years has not been determined. Clinical correlation is essential. Serum or plasma urea nitroge n measurement (mass/volume)on 07-02-2022 Urea nitrogen [Mass/Vol] 21 mg/dL 7-18 [facility] Work Phone: Squamous epithelial cells de tection in urine sediment by light microscopyOrdered By: Dr. Kingsley on 07-02-2022 Epithelial cells.squamous LM Ql (Urine sed) 0-5 SEEN /hpf 5-10 [facility] Thin prep Papanicolaou smear with manual screeningOrdered By: Dr. Kingsley on 07-02-2022 Thin prep Papanicolaou smear with manual screening 12 U/L 15-37 [facility] Thin prep Papanicolaou smear with manual screeningon 07-02-2022 Thin prep Papanicolaou smear with manual screening 5 5-15 [facility] Work Phone: Urine blood detectionOrdered By: Dr. Kingsley on 07-02-2022 RBC Ql (U) Negative Negative [facility] RBC Ql (U) 0 SEEN /hpf 0-5 [facility] Urine clarityOrdered By: Dr. Kingsley on 07-02-2022 Clarity (U) Clear Clear [facility] Urine color determinationOrd ered By: Dr. Kingsley on 07-02-2022 Color (U) Yellow Yellow [facility] Urine glucose detectionOrder ed By: Dr. Kingsley on 07-02-2022 Glucose Ql (U) Normal mg/dl Normal [facility] Urine leukocyte esterase det ection by dipstickOrdered By: Dr. Kingsley on 07-02-2022 Leukocyte esterase Test strip Ql (U) 25 /ul Negative [facility] Urine pHOrdered By: Dr. Rufino lozano on 07-02-2022 pH (U) 6.5 [pH] 5.0 - 8.0 [facility] Urine sediment bacteria coun t by microscopy (number/high power field)Ordered By: Dr. Kingsley on 07-02-2022 Bacteria LM.HPF (Urine sed) [#/Area] 0 /[HPF] None Seen [facility] Urine specific gravity measu rementOrdered By: Dr. Kingsley on 07-02-2022 Specific gravity (U) [Rel density] 1.010 1.002-1.[address] [facility] Urobilinogen Auto test strip Ql (U)Ordered By: Dr. Kingsley on 07-02-2022 Urobilinogen Ql (U) Normal mg/dl Normal [facility] CBC & PLATELETS (AUTO) (8502 [id number])Ordered By: Lighting Fixture Installer on 06-25-2022 Erythrocyte distribution width (RBC) [Ratio] 13.3 % Normal 11.7-15.4 [facility]; [facility] Work Phone: Comment on above: PATIENT NOT FASTINGP ERFORMED BY: CB [facility] [id number] [address]Dublin [place] [id number] Hematocrit (Bld) [Volume fraction] 36.5 % Normal 34.0-46.6 [facility]; [facility] Work Phone: Comment on above: PATIENT NOT FASTINGP ERFORMED BY: CB [facility] [id number] [address]Dublin [place] [id number] Hemoglobin (Bld) [Mass/Vol] 12.0 g/dL Normal 11.1-15.9 [facility]; [facility] Work Phone: Comment on above: PATIENT NOT FASTINGP ERFORMED BY: CB [facility] [id number] [address]Dublin [place] [id number] MCH (RBC) [Entitic mass] 29.3 pg Normal 26.6-33.0 [facility]; [facility] Work Phone: Comment on above: PATIENT NOT FASTINGP ERFORMED BY: CB [facility] [id number] [address]Dublin [place] [id number] MCHC (RBC) [Mass/Vol] 32.9 g/dL Normal 31.5-35.7 [facility]; [facility] Work Phone: Comment on above: PATIENT NOT FASTINGP ERFORMED BY: CB [facility] [id number] [address]Dublin [place] [id number] MCV (RBC) [Entitic vol] 89 fL Normal 79-97 [facility]; [facility] Work Phone: Comment on above: PATIENT NOT FASTINGP ERFORMED BY: CB [facility] [id number] [address]Dublin [place] [id number] Platelets (Bld) [#/Vol] 233 10*3/uL Normal 150-450 [facility]; [facility] Work Phone: Comment on above: PATIENT NOT FASTINGP ERFORMED BY: CB [facility] [id number] [address]Dublin [place] [id number] RBC (Bld) [#/Vol] 4.10 10*6/uL Normal 3.77-5.28 [facility] Work Phone: Comment on above: PATIENT NOT FASTINGP ERFORMED BY: HALEIGH [facility] [id number] [address]Dublin [place] [id number] WBC (Bld) [#/Vol] 9.4 10*3/uL Normal 3.4-10.8 [facility]; [facility] Work Phone: Comment on above: PATIENT NOT FASTINGP ERFORMED BY: CB [facility] [id number] [address]Dublin [place] [id number] METABOLIC PANEL, BASIC ([id number])Ordered By: Lighting Fixture Installer on 06-25-2022 Calcium [Mass/Vol] 10.1 mg/dL Normal 8.7-10.3 [facility]; [facility] Work Phone: Comment on above: PATIENT NOT FASTINGP ERFORMED BY: CB [facility] [id number] [address]Dublin [place] [id number] Chloride [Moles/Vol] 101 mmol/L Normal 96-106 [facility] Work Phone: Comment on above: PATIENT NOT FASTINGP ERFORMED BY: CB [facility] [id number] [address]Dublin [place] [id number] CO2 [Moles/Vol] 23 mmol/L Normal 20-29 [facility]; [facility] Work Phone: Comment on above: PATIENT NOT FASTINGP ERFORMED BY: CB [facility] [id number] [address]Dublin [place] [id number] Creatinine [Mass/Vol] 1.09 mg/dL Abnormal 0.57-1.00 [facility] Work Phone: Comment on above: PATIENT NOT FASTINGP ERFORMED BY: CB [facility] [id number] [address]Dublin [place] [id number] GFR/1.73 sq M.predicted among non-blacks MDRD (S/P/Bld) [Vol rate/Area] 50 mL/min/{1.73_m2} Abnormal [facility]; [facility] Work Phone: Comment on above: PATIENT NOT FASTINGP ERFORMED BY: HALEIGH [facility] [id number] [facility] [place] [id number] Glucose [Mass/Vol] 118 mg/dL Abnormal 70-[address] [facility]; [facility] Work Phone: Comment on above: PATIENT NOT FASTINGP ERFORMED BY: CB [facility] [id number] [facility] [id number] Potassium [Moles/Vol] 4.7 mmol/L Normal 3.5-5.2 [facility] pre[facility]ive [facility]; [facility] Work Phone: Comment on above: PATIENT NOT FASTINGP ERFORMED BY: CB [facility] [id number] [facility] [id number] Sodium [Moles/Vol] 138 mmol/L Normal 134-144 [facility]; [facility] Work Phone: Comment on above: PATIENT NOT FASTINGP ERFORMED BY: CB [facility] [id number] [facility] [place] [id number] Urea nitrogen [Mass/Vol] 23 mg/dL Normal 8-27 [facility]; [facility] Work Phone: Comment on above: PATIENT NOT FASTINGP ERFORMED BY: CB [facility] [id number] [facility] [id number] Urea nitrogen/Creatinine [Mass ratio] 21 mg/mg Normal 12- [facility]; [facility] Work Phone: Comment on above: PATIENT NOT FASTINGP ERFORMED BY: CB [facility] [id number] [facility] [place] [id number] Absolute lymphocyte countOrd ered By: Dr. Lal on 06-17-2022 Lymphocytes Auto (Unsp spec) [#/Vol] 3.40 10*3/uL 0.83-4.51 [facility] Basophil percentageOrdered B y: Dr. Lal on 06-17-2022 Basophil percentage 109 mg/dL 74-106 [facility] Basophil percentage 136 mmol/L 136-145 [facility] Basophil percentage 4.4 mmol/L 3.5-5.1 [facility] Basophil percentage 104 mmol/L 98-107 [facility] Basophils (Bld) [#/Vol] 8.7 10*3/uL 4.4-11.0 [facility] Basophils (Bld) [#/Vol] 4.1 10*3/uL 2.0-7.7 [facility] Basophils/100 WBC (Bld) 0.6 % 0-[address] [facility] Basophils/100 WBC (Bld) 47.5 % 47-[address] [facility] Basophils/100 WBC (Bld) 2.5 % 0-[address] [facility] Basophil percentageon 2021 Chloride [Moles/Vol] 104 mmol/L 98-107 [facility] Work Phone: Eosinophils/100 WBC (Bld) 2.5 % 0-5 [facility] Work Phone: Glucose [Mass/Vol] 109 mg/dL 74-106 [facility] Work Phone: Comment on above: Fasting Glucose resu lt from 100 to 125 mg/dL suggests IMPAIRED HOMEOSTASIS per A.D.A. criteria. Neutrophils (Bld) [#/Vol] 4.1 10*3/uL 2.0-7.7 [facility] Work Phone: Neutrophils/100 WBC (Bld) 47.5 % 47-70 [facility] Work Phone: Potassium [Moles/Vol] 4.4 mmol/L 3.5-5.1 [facility] Work Phone: Sodium [Moles/Vol] 136 mmol/L 136-145 [facility] Work Phone: WBC (Bld) [#/Vol] 8.7 10*3/uL 4.4-11.0 [facility] Work Phone: Blood erythrocytes count (nu mber/volume)Ordered By: Dr. Lal on 06-17-2022 RBC (Bld) [#/Vol] 3.83 10*6/uL 4.2-5.4 [facility] Blood hemoglobin measurement (mass/volume)Ordered By: Dr. Lal on 06-17-2022 Hemoglobin (Bld) [Mass/Vol] 11.4 g/dL 12.0-15.0 [facility] Blood lymphocytes/100 leukoc ytesOrdered By: Dr. Lal on 06-17-2022 Lymphocytes/100 WBC (Bld) 38.9 % 19-41 [facility] Blood monocytes/100 leukocyt esOrdered By: Dr. Lal on 06-17-2022 Monocytes/100 WBC (Bld) 10.2 % 0-[address] [facility] Blood platelet mean volumeOr dered By: Dr. Lal on 06-17-2022 Platelet mean volume (Bld) [Entitic vol] 10.6 fL 6.2-12.0 [facility] Determination of erythrocyte mean corpuscular volume (MCV)Ordered By: Dr. Lal on 06-17-2022 MCV (RBC) [Entitic vol] 90.9 fL 81-[address] [facility] Hematocrit Auto (Bld) [Volum e fraction]Ordered By: Dr. Lal on 06-17-2022 Hematocrit (Bld) [Volume fraction] 34.8 % 37-47 [facility] Laboratory - Chemistry and C hemistry - challengeon 06-17-2022 CO2 [Moles/Vol] 28.0 mmol/L 21.0-32.0 [facility] Work Phone: Urea nitrogen/Creatinine [Mass ratio] 20.9 mg/mg 10-20 [facility] Work Phone: Laboratory - Hematology and Cell countson 06-17-2022 Erythrocyte distribution width (RBC) [Entitic vol] 48.8 fL 35.1-43.9 [facility] Work Phone: Erythrocyte distribution width (RBC) [Ratio] 14.5 % 11.6-14.6 [facility] Work Phone: Immature granulocytes/100 WBC (Bld) 0.300 % 0.0-0.9 [facility] Work Phone: Comment on above: IG% - Immature Granu locytes (promyelocytes, myelocytes and metamyelocytes) > 1% indicates that a LEFT SHIFT is Present. MCH (RBC) [Entitic mass] 29.8 pg 27.0-32.0 [facility] Work Phone: Nucleated RBC/100 WBC (Bld) [Ratio] 0 % 0-5 [facility] Work Phone: MCHC Auto (RBC) [Mass/Vol]Or dered By: Dr. Lal on 06-17-2022 MCHC (RBC) [Mass/Vol] 32.8 g/dL 32-36 [facility] No Panel Informationon 06-17 Estimated GFR (MDRD) Amer 58 mL/min >60 [facility] Work Phone: Comment on above: GFR Calc Estimated GFR (MDRD) Non-Af Amer 48 mL/min >60 [facility] Work Phone: Comment on above: Non- GFR Calc No Panel InformationOrdered By: Dr. Lal on 06-17-2022 29.8 pg 27.0-32.0 [facility] 14.5 % 11.6-14.6 [facility] 48.8 fl 35.1-43.9 [facility] 0.300 % 0.0-0.9 [facility] 0 % 0-5 [facility] 48 mL/min >60 [facility] 58 mL/min >60 [facility] 20.9 RATIO 10-20 [facility] 28.0 mmol/L 21.0-32.0 [facility] Platelets bldOrdered By: Dr. Lal on 06-17-2022 Platelets (Bld) [#/Vol] 208 10*3/uL 150-450 [facility] Serum or plasma calcium brian urement (mass/volume)Ordered By: Dr. Lal on 06-17-2022 Calcium [Mass/Vol] 9.7 mg/dL 8.5-10.1 [facility] Serum or plasma creatinine m easurement (mass/volume)Ordered By: Dr. Lal on 06-17-2022 Creatinine [Mass/Vol] 1.15 mg/dL 0.55-1.02 [facility] Comment on above: The validity of the calculated GFR & GFRAA in patients over 70 years has not been determined. Clinical correlation is essential. Serum or plasma urea nitroge n measurement (mass/volume)Ordered By: Dr. Lal on 06-17-2022 Urea nitrogen [Mass/Vol] 24 mg/dL 7-18 [facility] Thin prep Papanicolaou smear with manual screeningOrdered By: Dr. Lal on 06-17-2022 Thin prep Papanicolaou smear with manual screening 4 5-15 [facility] Basophil percentageOrdered B y: Dr. Lal on 06-08-2022 Basophil percentage 114 mg/dL 74-106 [facility] Basophil percentage 6.9 g/dL 6.4-8.2 [facility] Basophil percentage 1.00 mg/dL 0.20-1.00 [facility] Basophil percentage 141 mmol/L 136-145 [facility] Basophil percentage 4.2 mmol/L 3.5-5.1 [facility] Basophil percentage 108 mmol/L 98-107 [facility] Basophils (Bld) [#/Vol] 7.5 10*3/uL 4.4-11.0 [facility] Basophil percentageon 2021 Bilirubin [Mass/Vol] 1.00 mg/dL 0.20-1.00 [facility] Work Phone: Comment on above: For patients on eltr ombopag therapy, use of Dimension Onward TBIL is not recommended. Chloride [Moles/Vol] 108 mmol/L 98-107 [facility] Work Phone: Glucose [Mass/Vol] 114 mg/dL 74-106 [facility] Work Phone: Comment on above: Fasting Glucose resu lt from 100 to 125 mg/dL suggests IMPAIRED HOMEOSTASIS per A.D.A. criteria. Potassium [Moles/Vol] 4.2 mmol/L 3.5-5.1 [facility] Work Phone: Protein [Mass/Vol] 6.9 g/dL 6.4-8.2 [facility] Work Phone: Sodium [Moles/Vol] 141 mmol/L 136-145 [facility] Work Phone: WBC (Bld) [#/Vol] 7.5 10*3/uL 4.4-11.0 [facility] Work Phone: Blood erythrocytes count (nu mber/volume)Ordered By: Dr. Lal on 06-08-2022 RBC (Bld) [#/Vol] 3.81 10*6/uL 4.2-5.4 [facility] Blood hemoglobin measurement (mass/volume)Ordered By: Dr. Lal on 06-08-2022 Hemoglobin (Bld) [Mass/Vol] 11.1 g/dL 12.0-15.0 [facility] Blood platelet mean volumeOr dered By: Dr. Lal on 06-08-2022 Platelet mean volume (Bld) [Entitic vol] 11.1 fL 6.2-12.0 [facility] Determination of erythrocyte mean corpuscular volume (MCV)Ordered By: Dr. Lal on 06-08-2022 MCV (RBC) [Entitic vol] 90.6 fL 81-[address] [facility] Hematocrit Auto (Bld) [Volum e fraction]Ordered By: Dr. Lal on 06-08-2022 Hematocrit (Bld) [Volume fraction] 34.5 % 37-47 [facility] Laboratory - Chemistry and C hemistry - challengeon 06-08-2022 ALP [Catalytic activity/Vol] 54 U/L 45-117 [facility] Work Phone: ALT [Catalytic activity/Vol] 18 U/L 13-56 [facility] Work Phone: CO2 [Moles/Vol] 29.0 mmol/L 21.0-32.0 [facility] Work Phone: Globulin (S) [Mass/Vol] 4.0 g/dL 2.2-4.[address] [facility] Work Phone: Urea nitrogen/Creatinine [Mass ratio] 41.3 mg/mg 10-20 [facility] Work Phone: Laboratory - Hematology and Cell countson 06-08-2022 Erythrocyte distribution width (RBC) [Entitic vol] 47.8 fL 35.1-43.9 [facility] Work Phone: Erythrocyte distribution width (RBC) [Ratio] 14.4 % 11.6-14.6 [facility] Work Phone: MCH (RBC) [Entitic mass] 29.1 pg 27.0-32.0 [facility] Work Phone: MCHC Auto (RBC) [Mass/Vol]Or dered By: Dr. Lal on 06-08-2022 MCHC (RBC) [Mass/Vol] 32.2 g/dL 32-36 [facility] No Panel Informationon 06-08 Estimated GFR (MDRD) Amer 54 mL/min >60 [facility] Work Phone: Comment on above: GFR Calc Estimated GFR (MDRD) Non-Af Amer 45 mL/min >60 [facility] [facility] Work Phone: Comment on above: Non- GFR Calc No Panel InformationOrdered By: Dr. Lal on 06-08-2022 29.1 pg 27.0-32.0 [facility] 14.4 % 11.6-14.6 [facility] 47.8 fl 35.1-43.9 [facility] 45 mL/min >60 [facility] 54 mL/min >60 [facility] 41.3 RATIO 10-20 [facility] 4.0 g/dL 2.2-4.2 [facility] 54 U/L 45-117 [facility] 18 U/L 13-56 [facility] 29.0 mmol/L 21.0-32.0 [facility] Platelets bldOrdered By: Dr. Lal on 06-08-2022 Platelets (Bld) [#/Vol] 230 10*3/uL 150-450 [facility] Serum or plasma albumin brian urement (mass/volume)Ordered By: Dr. Lal on 06-08-2022 Albumin [Mass/Vol] 2.9 g/dL 3.2-5.0 [facility] Serum or plasma albumin/glob ulin mass ratioOrdered By: Dr. Lal on 06-08-2022 Albumin/Globulin [Mass ratio] 0.7 {ratio} 0.9-2.4 [facility] Serum or plasma calcium brian urement (mass/volume)Ordered By: Dr. Lal on 06-08-2022 Calcium [Mass/Vol] 9.9 mg/dL 8.5-10.1 [facility] Serum or plasma creatinine m easurement (mass/volume)Ordered By: Dr. Lal on 06-08-2022 Creatinine [Mass/Vol] 1.21 mg/dL 0.55-1.02 [facility] Comment on above: The validity of the calculated GFR & GFRAA in patients over 70 years has not been determined. Clinical correlation is essential. Serum or plasma urea nitroge n measurement (mass/volume)Ordered By: Dr. Lal on 06-08-2022 Urea nitrogen [Mass/Vol] 50 mg/dL 7-18 [facility] Thin prep Papanicolaou smear with manual screeningOrdered By: Dr. Lal on 06-08-2022 Thin prep Papanicolaou smear with manual screening 13 U/L 15-37 [facility] Thin prep Papanicolaou smear with manual screening 4 5-15 [facility] Basophil percentageOrdered B y: Dr. Hudson on 06-06-2022 Basophil percentage 3.6 mg/dL 2.5-4.9 [facility] Basophil percentage 108 mg/dL 74-106 [facility] Basophil percentage 136 mmol/L 136-145 [facility] Basophil percentage 5.2 mmol/L 3.5-5.1 [facility] Basophil percentage 104 mmol/L 98-107 [facility] Basophil percentageon 2021 Chloride [Moles/Vol] 104 mmol/L 98-107 [facility] Work Phone: Glucose [Mass/Vol] 108 mg/dL 74-106 [facility] Work Phone: Comment on above: Fasting Glucose resu lt from 100 to 125 mg/dL suggests IMPAIRED HOMEOSTASIS per A.D.A. criteria. Potassium [Moles/Vol] 5.2 mmol/L 3.5-5.1 [facility] Work Phone: Sodium [Moles/Vol] 136 mmol/L 136-145 [facility] Work Phone: Glucose Glucometer (BldC) [M ass/Vol]Ordered By: Dr. Arevalo on 06-06-2022 Glucose [Mass/Vol] 101 mg/dL 74-106 [facility] Comment on above: MANAGEMENT OF PATIEN T CARE PER NURSING PROTOCOL Laboratory - Chemistry and C hemistry - challengeon 06-06-2022 CO2 [Moles/Vol] 27.0 mmol/L 21.0-32.0 [facility] Work Phone: Urea nitrogen/Creatinine [Mass ratio] 58.7 mg/mg 05-09 [facility] Work Phone: No Panel Informationon 06-06 Estimated Creatinine Clearance Calc 15.44 ml/min [facility] Work Phone: Estimated GFR (MDRD) Amer 30 mL/min >60 [facility] Work Phone: Comment on above: GFR Calc Estimated GFR (MDRD) Non-Af Amer 25 mL/min >60 [facility] Work Phone: Comment on above: Non- GFR Calc No Panel InformationOrdered By: Dr. Hudson on 06-06-2022 25 mL/min >60 [facility] 30 mL/min >60 [facility] 15.44 ml/min [facility] 58.7 RATIO 05-09 [facility] 27.0 mmol/L 21.0-32.0 [facility] Serum or plasma albumin brian urement (mass/volume)Ordered By: Dr. Hudson on 06-06-2022 Albumin [Mass/Vol] 2.8 g/dL 3.2-5.0 [facility] Serum or plasma calcium brian urement (mass/volume)Ordered By: Dr. Hudson on 06-06-2022 Calcium [Mass/Vol] 9.6 mg/dL 8.5-10.1 [facility] Serum or plasma creatinine m easurement (mass/volume)Ordered By: Dr. Hudson on 06-06-2022 Creatinine [Mass/Vol] 2.01 mg/dL 0.55-1.02 [facility] Comment on above: The validity of the calculated GFR & GFRAA in patients over 70 years has not been determined. Clinical correlation is essential. Serum or plasma urea nitroge n measurement (mass/volume)Ordered By: Dr. Hudson on 06-06-2022 Urea nitrogen [Mass/Vol] 118 mg/dL 02-04 [facility] Comment on above: Critical Result(s) C alled at: 06:43:18 06/06/2022 by: MARIAN SMITH Results read back by same. Absolute lymphocyte countOrd ered By: Dr. Hudson on 06-05-2022 Lymphocytes Auto (Unsp spec) [#/Vol] 2.80 10*3/uL 0.83-4.51 [facility] Basophil percentageOrdered B y: Dr. Hudson on 06-05-2022 Basophils (Bld) [#/Vol] 8.2 10*3/uL 4.4-11.0 [facility] Basophils (Bld) [#/Vol] 4.0 10*3/uL 2.0-7.7 [facility] Basophils/100 WBC (Bld) 0.6 % 0-[address] [facility] Basophils/100 WBC (Bld) 49.1 % 47-[address] [facility] Basophils/100 WBC (Bld) 3.7 % 0-[address] [facility] Basophil percentageon 2021 Eosinophils/100 WBC (Bld) 3.7 % 0-5 [facility] Work Phone: Neutrophils (Bld) [#/Vol] 4.0 10*3/uL 2.0-7.7 [facility] Work Phone: Neutrophils/100 WBC (Bld) 49.1 % 47-70 [facility] Work Phone: WBC (Bld) [#/Vol] 8.2 10*3/uL 4.4-11.0 [facility] Work Phone: Blood erythrocytes count (nu mber/volume)Ordered By: Dr. Hudson on 06-05-2022 RBC (Bld) [#/Vol] 3.67 10*6/uL 4.2-5.4 [facility] Blood hemoglobin measurement (mass/volume)Ordered By: Dr. Hudson on 06-05-2022 Hemoglobin (Bld) [Mass/Vol] 11.0 g/dL 12.0-15.0 [facility] Blood lymphocytes/100 leukoc ytesOrdered By: Dr. Hudson on 06-05-2022 Lymphocytes/100 WBC (Bld) 34.2 % 19-41 [facility] Blood monocytes/100 leukocyt esOrdered By: Dr. Hudson on 06-05-2022 Monocytes/100 WBC (Bld) 12.2 % 0-[address] [facility] Blood platelet mean volumeOr dered By: Dr. Hudson on 06-05-2022 Platelet mean volume (Bld) [Entitic vol] 10.5 fL 6.2-12.0 [facility] Determination of erythrocyte mean corpuscular volume (MCV)Ordered By: Dr. Hudson on 06-05-2022 MCV (RBC) [Entitic vol] 90.5 fL 81-[address] [facility] Hematocrit Auto (Bld) [Volum e fraction]Ordered By: Dr. Hudson on 06-05-2022 Hematocrit (Bld) [Volume fraction] 33.2 % 37-47 [facility] Laboratory - Chemistry and C hemistry - challengeon 06-05-2022 Sodium (U) [Moles/Vol] 29 mmol/L Not Establ. [facility] Work Phone: Laboratory - Hematology and Cell countson 06-05-2022 Erythrocyte distribution width (RBC) [Entitic vol] 48.6 fL 35.1-43.9 [facility] Work Phone: Erythrocyte distribution width (RBC) [Ratio] 14.6 % 11.6-14.6 [facility] Work Phone: Immature granulocytes/100 WBC (Bld) 0.200 % 0.0-0.9 [facility] Work Phone: Comment on above: IG% - Immature Granu locytes (promyelocytes, myelocytes and metamyelocytes) > 1% indicates that a LEFT SHIFT is Present. MCH (RBC) [Entitic mass] 30.0 pg 27.0-32.0 [facility] Work Phone: Nucleated RBC/100 WBC (Bld) [Ratio] 0 % 0-5 [facility] Work Phone: MCHC Auto (RBC) [Mass/Vol]Or dered By: Dr. Hudson on 06-05-2022 MCHC (RBC) [Mass/Vol] 33.1 g/dL 32-36 [facility] No Panel Informationon 06-05 Urine Urea Nitrogen 951 mg/dL NO RANGE EST. [facility] Work Phone: No Panel InformationOrdered By: Dr. Hudson on 06-05-2022 29 mmol/L Not Establ. [facility] 951 mg/dL NO RANGE EST. [facility] 30.0 pg 27.0-32.0 [facility] 14.6 % 11.6-14.6 [facility] 48.6 fl 35.1-43.9 [facility] 0.200 % 0.0-0.9 [facility] 0 % 0-5 [facility] Platelets bldOrdered By: Dr. Hudson on 06-05-2022 Platelets (Bld) [#/Vol] 231 10*3/uL 150-450 [facility] Urine creatinine measurement (mass/volume)Ordered By: Dr. Hudson on 06-05-2022 Creatinine (U) [Mass/Vol] 51.60 mg/dL NO RANGE EST. [facility] Thin prep Papanicolaou smear with manual screeningOrdered By: Dr. Arevalo on 05-31-2022 Thin prep Papanicolaou smear with manual screening 5 5-15 [facility] Basophil percentageOrdered B y: Dr. Martinez on 05-23-2022 Basophil percentage 120 mg/dL 74-106 [facility] Basophil percentage 135 mmol/L 136-145 [facility] Basophil percentage 5.0 mmol/L 3.5-5.1 [facility] Basophil percentage 101 mmol/L 98-107 [facility] Basophil percentageon 2021 Chloride [Moles/Vol] 101 mmol/L 98-107 [facility] Work Phone: Glucose [Mass/Vol] 120 mg/dL 74-106 [facility] Work Phone: Comment on above: Fasting Glucose resu lt from 100 to 125 mg/dL suggests IMPAIRED HOMEOSTASIS per A.D.A. criteria. Potassium [Moles/Vol] 5.0 mmol/L 3.5-5.1 [facility] Work Phone: Comment on above: Slight Hemolysis, Re sult may be falsely increased. Sodium [Moles/Vol] 135 mmol/L 136-145 [facility] Work Phone: COVID-19 virus antigen assay Ordered By: Dr. Martinez on 05-23-2022 SARS-CoV-2 (COVID-19) Ag IA.rapid Ql (Resp) [facility] Glucose Glucometer (BldC) [M ass/Vol]Ordered By: Dr. Martinez on 05-23-2022 Glucose [Mass/Vol] 140 mg/dL 74-106 [facility] Comment on above: MANAGEMENT OF PATIEN T CARE PER NURSING PROTOCOL Glucose Glucometer (BldC) [M ass/Vol]on 05-23-2022 Glucose [Mass/Vol] 124 mg/dL 74-106 [facility] Work Phone: Comment on above: MANAGEMENT OF PATIEN T CARE PER NURSING PROTOCOL Laboratory - Chemistry and C hemistry - challengeon 05-23-2022 CO2 [Moles/Vol] 27.0 mmol/L 21.0-32.0 [facility] Work Phone: Urea nitrogen/Creatinine [Mass ratio] 41.0 mg/mg 10-20 [facility] Work Phone: No Panel Informationon 05-23 Estimated Creatinine Clearance Calc 16.51 ml/min [facility] Work Phone: Estimated GFR (MDRD) Amer 33 mL/min >60 [facility] Work Phone: Comment on above: GFR Calc Estimated GFR (MDRD) Non-Af Amer 27 mL/min >60 [facility] Work Phone: Comment on above: Non- GFR Calc No Panel InformationOrdered By: Dr. Martinez on 05-23-2022 27 mL/min >60 [facility] 33 mL/min >60 [facility] 16.51 ml/min [facility] 41.0 RATIO 10-20 [facility] 27.0 mmol/L 21.0-32.0 [facility] Serum or plasma calcium brian urement (mass/volume)Ordered By: Dr. Martinez on 05-23-2022 Calcium [Mass/Vol] 10.1 mg/dL 8.5-10.1 [facility] Serum or plasma creatinine m easurement (mass/volume)Ordered By: Dr. Martinez on 05-23-2022 Creatinine [Mass/Vol] 1.88 mg/dL 0.55-1.02 [facility] Comment on above: The validity of the calculated GFR & GFRAA in patients over 70 years has not been determined. Clinical correlation is essential. Serum or plasma urea nitroge n measurement (mass/volume)Ordered By: Dr. Martinez on 05-23-2022 Urea nitrogen [Mass/Vol] 77 mg/dL 7-18 [facility] Thin prep Papanicolaou smear with manual screeningOrdered By: Dr. Martinez on 05-23-2022 Thin prep Papanicolaou smear with manual screening 7 5-15 [facility] Absolute lymphocyte countOrd ered By: Dr. Martinez on 05-22-2022 Lymphocytes Auto (Unsp spec) [#/Vol] 2.89 10*3/uL 0.83-4.51 [facility] Basophil percentageOrdered B y: Dr. Martinez on 05-22-2022 Basophils (Bld) [#/Vol] 8.7 10*3/uL 4.4-11.0 [facility] Basophils (Bld) [#/Vol] 4.2 10*3/uL 2.0-7.7 [facility] Basophils/100 WBC (Bld) 1.2 % 0-[address] [facility] Basophils/100 WBC (Bld) 48.2 % 47-[address] [facility] Basophils/100 WBC (Bld) 3.9 % 0-[address] [facility] Basophil percentageon 2021 Eosinophils/100 WBC (Bld) 3.9 % 0-5 [facility] Work Phone: Neutrophils (Bld) [#/Vol] 4.2 10*3/uL 2.0-7.7 [facility] Work Phone: Neutrophils/100 WBC (Bld) 48.2 % 47-70 [facility] Work Phone: WBC (Bld) [#/Vol] 8.7 10*3/uL 4.4-11.0 [facility] Work Phone: Blood erythrocytes count (nu mber/volume)Ordered By: Dr. Martinez on 05-22-2022 RBC (Bld) [#/Vol] 3.58 10*6/uL 4.2-5.4 [facility] Blood hemoglobin measurement (mass/volume)Ordered By: Dr. Martinez on 05-22-2022 Hemoglobin (Bld) [Mass/Vol] 10.9 g/dL 12.0-15.0 [facility] Blood lymphocytes/100 leukoc ytesOrdered By: Dr. Martinez on 05-22-2022 Lymphocytes/100 WBC (Bld) 33.3 % 19-41 [facility] Blood monocytes/100 leukocyt esOrdered By: Dr. Martinez on 05-22-2022 Monocytes/100 WBC (Bld) 12.2 % 0-[address] [facility] Blood platelet mean volumeOr dered By: Dr. Martinez on 05-22-2022 Platelet mean volume (Bld) [Entitic vol] 9.9 fL 6.2-12.0 [facility] Determination of erythrocyte mean corpuscular volume (MCV)Ordered By: Dr. Martinez on 05-22-2022 MCV (RBC) [Entitic vol] 89.7 fL 81-[address] [facility] Hematocrit Auto (Bld) [Volum e fraction]Ordered By: Dr. Martinez on 05-22-2022 Hematocrit (Bld) [Volume fraction] 32.1 % 37-47 [facility] Laboratory - Hematology and Cell countson 05-22-2022 Erythrocyte distribution width (RBC) [Entitic vol] 45.3 fL 35.1-43.9 [facility] Work Phone: Erythrocyte distribution width (RBC) [Ratio] 13.9 % 11.6-14.6 [facility] Work Phone: Immature granulocytes/100 WBC (Bld) 1.200 % 0.0-0.9 [facility] Work Phone: Comment on above: IG% - Immature Granu locytes (promyelocytes, myelocytes and metamyelocytes) > 1% indicates that a LEFT SHIFT is Present. MCH (RBC) [Entitic mass] 30.4 pg 27.0-32.0 [facility] Work Phone: Nucleated RBC/100 WBC (Bld) [Ratio] 0 % 0-5 [facility] Work Phone: MCHC Auto (RBC) [Mass/Vol]Or dered By: Dr. Martinez on 05-22-2022 MCHC (RBC) [Mass/Vol] 34.0 g/dL 32-36 [facility] No Panel InformationOrdered By: Dr. Martinez on 05-22-2022 30.4 pg 27.0-32.0 [facility] 13.9 % 11.6-14.6 [facility] 45.3 fl 35.1-43.9 [facility] 1.200 % 0.0-0.9 [facility] 0 % 0-5 [facility] Platelets bldOrdered By: Dr. Martinez on 05-22-2022 Platelets (Bld) [#/Vol] 294 10*3/uL 150-450 [facility] Aldosterone/renin activity r atioOrdered By: Dr. Kwok on 05-21-2022 Aldosterone/Renin (P) [Ratio] 0.3 0.0-30.0 [facility] Comment on above: Units: ng/dL per ng/ mL/hrPerformed at: [facility] Lab[address] [id number] Director: Jsoe Castillo MD, Phone: [phone] Basophil percentageOrdered B y: Dr. Martinez on 05-21-2022 Basophil percentage 4.2 mg/dL 2.5-4.9 [facility] Laboratory - Chemistry and C hemistry - challengeon 05-21-2022 Magnesium [Mass/Vol] 1.8 mg/dL 1.6-2.6 [facility] Work Phone: No Panel InformationOrdered By: Dr. Martinez on 05-21-2022 1.8 mg/dL 1.6-2.6 [facility] Plasma renin measurement (en zymatic activity/volume)Ordered By: Dr. Kwok on 05-21-2022 Renin (P) [Catalytic activity/Vol] 4.801 ng/mL/hr 0.167-5.[address] [facility] Serum or plasma cortisol alecia surement (mass/volume)Ordered By: Dr. Kwok on 05-21-2022 Cortisol [Mass/Vol] 12.00 ug/dL 3.44-22.45 [facility] Comment on above: Adult (AM) 5.27 - 22 .45 ug/dL Adult (PM) 3.44 - 16.76 ug/dLPlease note revised CORTISOL reference range effective 2019. Thin prep Papanicolaou smear with manual screeningOrdered By: Dr. Kwok on 05-21-2022 Thin prep Papanicolaou smear with manual screening 1.4 ng/dL 0.0-30.0 [facility] Anaerobic cultureOrdered By: Dr. Michel on 05-20-2022 Bacteria identified Anaer cx Nom (Unsp spec) No growth in 5 days. [facility] Basophil percentageOrdered B y: Dr. Booth on 05-20-2022 Basophil percentage 169 mg/dL <200 [facility] Basophil percentage 137 mg/dL <199 [facility] Basophil percentageon 2021 Cholesterol [Mass/Vol] 169 mg/dL <200 [facility] Work Phone: Comment on above: <200 mg/dL Desirable 200-240 mg/dL Borderline >240 mg/dL High Risk Triglyceride [Mass/Vol] 137 mg/dL <199 [facility] Work Phone: Comment on above: The drugs N-Acetylcy steine and Metamizole may falsely depress this assay.Serum Triglycerides Reference Interval Normal <150 mg/dL Borderline high 150 - 199 mg/dL High 200 - 499 mg/dL Very High > or = 500 mg/dL No Panel Informationon 05-20 Troponin I High Sensitivity 83 pg/mL 3.0-54.0 [facility] Work Phone: Comment on above: Please Note: New Sue t Units and Gender Specific Reference Ranges. For more information see Policy Stat Procedure Onward High Sensitivity Troponin (TNIH) and attachments. No Panel InformationOrdered By: Dr. Booth on 05-20-2022 83 pg/mL 3.0-54.0 [facility] No Panel InformationOrdered By: Dr. Burnham on 05-20-2022 No growth in 5 days. [facility] Serum or plasma cholesterol in HDL measurement (mass/volume)Ordered By: Dr. Booth on 05-20-2022 Cholesterol in HDL [Mass/Vol] 40 mg/dL >40 [facility] Comment on above: The drugs N-Acetylcy steine and Metamizole may falsely depress this assay. Reference Range HDL <40 mg/dL Low HDL Cholesterol HDL >or= 60 mg/dL High HDL Cholesterol Serum or plasma cholesterol in VLDL measurement (mass/volume)Ordered By: Dr. Booth on 05-20-2022 Cholesterol in VLDL [Mass/Vol] 27 mg/dL 5-40 [facility] Serum or plasma low density lipoprotein (LDL) cholesterol measurement (mass/volume)Ordered By: Dr. Booth on 05-20-2022 Cholesterol in LDL [Mass/Vol] 102 mg/dL 0-130 [facility] Absolute lymphocyte counton 05-19-2022 Lymphocytes Auto (Unsp spec) [#/Vol] 1.95 10*3/uL 0.83-4.51 [facility] Work Phone: Anaerobic cultureOrdered By: Dr. Michel on 05-19-2022 Bacteria identified Anaer cx Nom (Unsp spec) No anaerobic bacteria isolated. [facility] Basophil percentageon 2021 Basophils/100 WBC (Bld) 1.0 % 0-[address] [facility] Work Phone: Chloride [Moles/Vol] 104 mmol/L 98-107 [facility] Work Phone: Eosinophils/100 WBC (Bld) 3.5 % 0-5 [facility] Work Phone: Glucose [Mass/Vol] 116 mg/dL 74-106 [facility] Work Phone: Comment on above: Fasting Glucose resu lt from 100 to 125 mg/dL suggests IMPAIRED HOMEOSTASIS per A.D.A. criteria. Neutrophils (Bld) [#/Vol] 5.6 10*3/uL 2.0-7.7 [facility] Work Phone: Neutrophils/100 WBC (Bld) 63.2 % 47-70 [facility] Work Phone: Potassium [Moles/Vol] 4.5 mmol/L 3.5-5.1 [facility] Work Phone: Sodium [Moles/Vol] 135 mmol/L 136-145 [facility] Work Phone: WBC (Bld) [#/Vol] 8.9 10*3/uL 4.4-11.0 [facility] Work Phone: Blood erythrocytes count (nu mber/volume)on 05-19-2022 RBC (Bld) [#/Vol] 4.03 10*6/uL 4.2-5.4 [facility] Work Phone: Blood hemoglobin measurement (mass/volume)on 05-19-2022 Hemoglobin (Bld) [Mass/Vol] 12.2 g/dL 12.0-15.0 [facility] Work Phone: Blood lymphocytes/100 leukoc yteson 05-19-2022 Lymphocytes/100 WBC (Bld) 21.9 % 19-41 [facility] Work Phone: Blood monocytes/100 leukocyt eson 05-19-2022 Monocytes/100 WBC (Bld) 8.9 % 0-[address] [facility] Work Phone: Blood platelet mean volumeon 05-19-2022 Platelet mean volume (Bld) [Entitic vol] 9.5 fL 6.2-12.0 [facility] Work Phone: Determination of erythrocyte mean corpuscular volume (MCV)on 05-19-2022 MCV (RBC) [Entitic vol] 87.8 fL 81-[address] [facility] Work Phone: Hematocrit Auto (Bld) [Volum e fraction]on 05-19-2022 Hematocrit (Bld) [Volume fraction] 35.4 % 37-47 [facility] Work Phone: Laboratory - Chemistry and C hemistry - challengeon 05-19-2022 CO2 [Moles/Vol] 23.0 mmol/L 21.0-32.0 [facility] Work Phone: Natriuretic peptide B (Bld) [Mass/Vol] 296.1 pg/mL 0-100 [facility] Work Phone: Urea nitrogen/Creatinine [Mass ratio] 21.0 mg/mg 10-20 [facility] Work Phone: Laboratory - Hematology and Cell countson 05-19-2022 Erythrocyte distribution width (RBC) [Entitic vol] 43.4 fL 35.1-43.9 [facility] Work Phone: Erythrocyte distribution width (RBC) [Ratio] 13.4 % 11.6-14.6 [facility] Work Phone: Immature granulocytes/100 WBC (Bld) 1.500 % 0.0-0.9 [facility] Work Phone: Comment on above: IG% - Immature Granu locytes (promyelocytes, myelocytes and metamyelocytes) > 1% indicates that a LEFT SHIFT is Present. MCH (RBC) [Entitic mass] 30.3 pg 27.0-32.0 [facility] Work Phone: Nucleated RBC/100 WBC (Bld) [Ratio] 0 % 0-5 [facility] Work Phone: MCHC Auto (RBC) [Mass/Vol]on 05-19-2022 MCHC (RBC) [Mass/Vol] 34.5 g/dL 32-36 [facility] Work Phone: No Panel Informationon 05-19 Estimated Creatinine Clearance Calc 26.08 ml/min [facility] Work Phone: Estimated GFR (MDRD) Amer 55 mL/min >60 [facility] Work Phone: Comment on above: GFR Calc Estimated GFR (MDRD) Non-Af Amer 46 mL/min >60 [facility] Work Phone: Comment on above: Non- GFR Calc Troponin I High Sensitivity 111 pg/mL 3.0-54.0 [facility] Work Phone: Comment on above: Please Note: New Sue t Units and Gender Specific Reference Ranges. For more information see Policy Stat Procedure Onward High Sensitivity Troponin (TNIH) and attachments. No Panel InformationOrdered By: Dr. Mariscal on 05-19-2022 296.1 pg/mL 0-100 [facility] Platelets bldon 05-19-2022 Platelets (Bld) [#/Vol] 326 10*3/uL 150-450 [facility] Work Phone: Serum or plasma calcium brian urement (mass/volume)on 05-19-2022 Calcium [Mass/Vol] 10.3 mg/dL 8.5-10.1 [facility] Work Phone: Serum or plasma creatinine m easurement (mass/volume)on 05-19-2022 Creatinine [Mass/Vol] 1.19 mg/dL 0.55-1.02 [facility] Work Phone: Comment on above: The validity of the calculated GFR & GFRAA in patients over 70 years has not been determined. Clinical correlation is essential. Serum or plasma urea nitroge n measurement (mass/volume)on 05-19-2022 Urea nitrogen [Mass/Vol] 25 mg/dL 7-18 [facility] Work Phone: Thin prep Papanicolaou smear with manual screeningon 05-19-2022 Thin prep Papanicolaou smear with manual screening 8 5-15 [facility] Work Phone: Absolute lymphocyte countOrd ered By: Dr. Martinez on 05-18-2022 Lymphocytes Auto (Unsp spec) [#/Vol] 1.52 10*3/uL 0.83-4.51 [facility] Basophil percentageOrdered B y: Dr. Martinez on 05-18-2022 Basophil percentage 128 mg/dL 74-106 [facility] Basophil percentage 137 mmol/L 136-145 [facility] Basophil percentage 4.5 mmol/L 3.5-5.1 [facility] Basophil percentage 107 mmol/L 98-107 [facility] Basophils (Bld) [#/Vol] 7.2 10*3/uL 4.4-11.0 [facility] Basophils (Bld) [#/Vol] 4.7 10*3/uL 2.0-7.7 [facility] Basophils/100 WBC (Bld) 0.8 % 0-[address] [facility] Basophils/100 WBC (Bld) 64.7 % 47-[address] [facility] Basophils/100 WBC (Bld) 4.1 % 0-[address] [facility] Basophil percentageon 2021 Chloride [Moles/Vol] 107 mmol/L 98-107 [facility] Work Phone: Eosinophils/100 WBC (Bld) 4.1 % 0-5 [facility] Work Phone: Glucose [Mass/Vol] 128 mg/dL 74-106 [facility] Work Phone: Comment on above: Fasting Glucose resu lt greater than or equal to 126 mg/dL suggests DIABETES MELLITUS per A.D.A. criteria. Neutrophils (Bld) [#/Vol] 4.7 10*3/uL 2.0-7.7 [facility] Work Phone: Neutrophils/100 WBC (Bld) 64.7 % 47-70 [facility] Work Phone: Potassium [Moles/Vol] 4.5 mmol/L 3.5-5.1 [facility] Work Phone: Sodium [Moles/Vol] 137 mmol/L 136-145 [facility] Work Phone: WBC (Bld) [#/Vol] 7.2 10*3/uL 4.4-11.0 [facility] Work Phone: Blood erythrocytes count (nu mber/volume)Ordered By: Dr. Martinez on 05-18-2022 RBC (Bld) [#/Vol] 3.59 10*6/uL 4.2-5.4 [facility] Blood hemoglobin measurement (mass/volume)Ordered By: Dr. Martinez on 05-18-2022 Hemoglobin (Bld) [Mass/Vol] 10.8 g/dL 12.0-15.0 [facility] Blood lymphocytes/100 leukoc ytesOrdered By: Dr. Martinez on 05-18-2022 Lymphocytes/100 WBC (Bld) 21.0 % 19-41 [facility] Blood monocytes/100 leukocyt esOrdered By: Dr. Martinez on 05-18-2022 Monocytes/100 WBC (Bld) 9.0 % 0-10 [facility] Blood platelet mean volumeOr dered By: Dr. Martinez on 05-18-2022 Platelet mean volume (Bld) [Entitic vol] 10.0 fL 6.2-12.0 [facility] Determination of erythrocyte mean corpuscular volume (MCV)Ordered By: Dr. Martinez on 05-18-2022 MCV (RBC) [Entitic vol] 90.8 fL 81-[address] [facility] Glucose Glucometer (BldC) [M ass/Vol]Ordered By: Dr. Matrinez on 05-18-2022 Glucose [Mass/Vol] 193 mg/dL 74-106 [facility] Comment on above: MANAGEMENT OF PATIEN T CARE PER NURSING PROTOCOL Hematocrit Auto (Bld) [Volum e fraction]Ordered By: Dr. Martinez on 05-18-2022 Hematocrit (Bld) [Volume fraction] 32.6 % 37-47 [facility] Laboratory - Chemistry and C hemistry - challengeon 05-18-2022 CO2 [Moles/Vol] 22.0 mmol/L 21.0-32.0 [facility] Work Phone: Urea nitrogen/Creatinine [Mass ratio] 23.5 mg/mg 10-20 [facility] Work Phone: Laboratory - Hematology and Cell countson 05-18-2022 Erythrocyte distribution width (RBC) [Entitic vol] 46.5 fL 35.1-43.9 [facility] Work Phone: Erythrocyte distribution width (RBC) [Ratio] 14.0 % 11.6-14.6 [facility] Work Phone: Immature granulocytes/100 WBC (Bld) 0.400 % 0.0-0.9 [facility] Work Phone: Comment on above: IG% - Immature Granu locytes (promyelocytes, myelocytes and metamyelocytes) > 1% indicates that a LEFT SHIFT is Present. MCH (RBC) [Entitic mass] 30.1 pg 27.0-32.0 [facility] Work Phone: Nucleated RBC/100 WBC (Bld) [Ratio] 0 % 0-5 [facility] Work Phone: MCHC Auto (RBC) [Mass/Vol]Or dered By: Dr. Martinez on 05-18-2022 MCHC (RBC) [Mass/Vol] 33.1 g/dL 32-36 [facility] No Panel Informationon 05-18 Estimated Creatinine Clearance Calc 26.99 ml/min [facility] Work Phone: Estimated GFR (MDRD) Amer 58 mL/min >60 [facility] Work Phone: Comment on above: GFR Calc Estimated GFR (MDRD) Non-Af Amer 48 mL/min >60 [facility] Work Phone: Comment on above: Non- GFR Calc No Panel InformationOrdered By: Dr. Martinez on 05-18-2022 30.1 pg 27.0-32.0 [facility] 14.0 % 11.6-14.6 [facility] 46.5 fl 35.1-43.9 [facility] 0.400 % 0.0-0.9 [facility] 0 % 0-5 [facility] 48 mL/min >60 [facility] 58 mL/min >60 [facility] 26.99 ml/min [facility] 23.5 RATIO 10-20 [facility] 22.0 mmol/L 21.0-32.0 [facility] Platelets bldOrdered By: Dr. Martinez on 05-18-2022 Platelets (Bld) [#/Vol] 255 10*3/uL 150-450 [facility] Routine wound cultureOrdered By: Dr. Michel on 05-18-2022 Bacteria identified Cx Nom (Wound) No growth aerobically. [facility] Serum or plasma calcium brian urement (mass/volume)Ordered By: Dr. Martinez on 05-18-2022 Calcium [Mass/Vol] 9.4 mg/dL 8.5-10.1 [facility] Serum or plasma creatinine m easurement (mass/volume)Ordered By: Dr. Martinez on 05-18-2022 Creatinine [Mass/Vol] 1.15 mg/dL 0.55-1.02 [facility] Comment on above: The validity of the calculated GFR & GFRAA in patients over 70 years has not been determined. Clinical correlation is essential. Serum or plasma urea nitroge n measurement (mass/volume)Ordered By: Dr. Martinez on 05-18-2022 Urea nitrogen [Mass/Vol] 27 mg/dL 7-18 [facility] Thin prep Papanicolaou smear with manual screeningOrdered By: Dr. Martinez on 05-18-2022 Thin prep Papanicolaou smear with manual screening 8 5-15 [facility] Bacteria identified Cx Nom ( Wound)Ordered By: Dr. Michel on 05-17-2022 Routine wound culture Pseudomonas aeroginosa [facility] Base excessOrdered By: Dr. Jonn govea on 05-17-2022 Base excess Calc (BldV) [Moles/Vol] -1 mmol/L -2-2 [facility] Basophil percentageOrdered B y: Dr. Martinez on 05-17-2022 Basophil percentage 24.5 mmol/L 22-26 [facility] Basophils/100 WBC (Bld) 90 % 95-99 [facility] CO2 (BldA) [Partial pressure ]Ordered By: Dr. Martinez on 05-17-2022 CO2 (Bld) [Partial pressure] 42.8 mm[Hg] 35-45 [facility] No Panel Informationon 05-17 Blood Gas Sample Site L [facility] Work Phone: Blood Gas Specimen Type ART [facility] Work Phone: Blood Gas Total CO2 26 mmol/L [facility] Work Phone: Oxygen Delivery Device Room Air [facility] Work Phone: No Panel InformationOrdered By: Dr. Martinez on 05-17-2022 [facility] L [facility] Room Air [facility] 26 mmol/L [facility] Oxygen (BldA) [Partial press ure]Ordered By: Dr. Martinez on 05-17-2022 Oxygen (Bld) [Partial pressure] 61 mmHG 75-100 [facility] pH measurementOrdered By: Dr Faustino Martinez on 05-17-2022 pH (Unsp spec) 7.37 [pH] 7.35-7.45 [facility] Bacteria identified Cx Nom ( U)Ordered By: Dr. Burnham on 05-16-2022 Culture, urine Mixed Gram Pos & Gra m Neg Org [facility] Basophil percentageOrdered B y: Dr. Luu on 05-16-2022 Basophil percentage 2.6 mg/dL 2.5-4.9 [facility] Basophil percentage 6.0 g/dL 6.4-8.2 [facility] Basophil percentage 1.30 mg/dL 0.20-1.00 [facility] Basophil percentageon 2021 Bilirubin [Mass/Vol] 1.30 mg/dL 0.20-1.00 [facility] Work Phone: Comment on above: For patients on eltr ombopag therapy, use of Dimension Onward TBIL is not recommended. Protein [Mass/Vol] 6.0 g/dL 6.4-8.2 [facility] Work Phone: Blood manual differential co mment interpretation (narrative result)Ordered By: Dr. Luu on 05-16-2022 Manual differential comment David (Bld) [Interp] SCANNED [facility] Blood platelet adequacy dete ction by light microscopyOrdered By: Dr. Luu on 05-16-2022 Platelets LM Ql (Bld) ADEQUATE ADEQ [facility] Laboratory - Chemistry and C hemistry - challengeon 05-16-2022 ALP [Catalytic activity/Vol] 61 U/L 45-117 [facility] Work Phone: ALT [Catalytic activity/Vol] 38 U/L 13-56 [facility] Work Phone: Globulin (S) [Mass/Vol] 3.7 g/dL 2.2-4.[address] [facility] Work Phone: Magnesium [Mass/Vol] 1.6 mg/dL 1.6-2.6 [facility] Work Phone: No Panel Informationon 05-16 Thyroid Stimulating Hormone (TSH) 1.50 uIU/mL 0.358-3.74 [facility] Work Phone: No Panel InformationOrdered By: Dr. Luu on 05-16-2022 3.7 g/dL 2.2-4.2 [facility] 61 U/L 45-117 [facility] 38 U/L 13-56 [facility] 1.6 mg/dL 1.6-2.6 [facility] 1.50 uIU/mL 0.358-3.74 [facility] Serum or plasma albumin brian urement (mass/volume)Ordered By: Dr. Luu on 05-16-2022 Albumin [Mass/Vol] 2.3 g/dL 3.2-5.0 [facility] Serum or plasma albumin/glob ulin mass ratioOrdered By: Dr. Luu on 05-16-2022 Albumin/Globulin [Mass ratio] 0.6 {ratio} 0.9-2.4 [facility] Thin prep Papanicolaou smear with manual screeningOrdered By: Dr. Luu on 05-16-2022 Thin prep Papanicolaou smear with manual screening 19 U/L 15-37 [facility] Vancomycin troughOrdered By: Dr. Booth on 05-16-2022 Vancomycin trough [Mass/Vol] 15.9 ug/mL 5.0-15.0 [facility] Comment on above: VANCOMYCIN STANDARED DRUG THERAPY TROUGH LEVEL: 5.0 - 15.0 mg/L VANCOMYCIN HIGH INTENSITY THERAPY TROUGH LEVEL: 15.0 - 20.0 mg/L High Intensity therapy recommended for serious lifethreatening infections include:- Cbybkihart-Stxotplywhlo-Vykvchffo (Ventilator/Healtcare Associated)-Sepsis PLEASE CONTACT PHARMACY SERVICES (#[id number]) FOR INTERPRETATIONOF RESULTS. Whole blood hemoglobin A1c/t otal hemoglobin ratio (mass fraction)Ordered By: Dr. Luu on 05-16-2022 HbA1c (Bld) [Mass fraction] 6.1 % 3.8-5.6 [facility] Comment on above: Normal < 5.7 % Predi abetic 5.7 - 6.4 % Diabetic >or= 6.5 % Please note range changes. Gram stain for investigation of transfusion reactionOrdered By: Dr. Michel on 05-15-2022 Microscopic observation Gram stain Nom (Unsp spec) [facility] Basophil percentageOrdered B y: Dr. Burnham on 05-14-2022 Basophil percentage 5-10 SEEN /hpf 0-5 [facility] Basophil percentage 0.9 mmol/L 0.4-2.0 [facility] Basophil percentageon 2021 Chloride [Moles/Vol] 107 mmol/L 98-107 [facility] Work Phone: Glucose [Mass/Vol] 98 mg/dL 74-106 [facility] Work Phone: Lactate [Moles/Vol] 0.9 mmol/L 0.4-2.0 [facility] Work Phone: Potassium [Moles/Vol] 4.7 mmol/L 3.5-5.1 [facility] Work Phone: Sodium [Moles/Vol] 137 mmol/L 136-145 [facility] Work Phone: WBC (Bld) [#/Vol] 12.2 10*3/uL 4.4-11.0 [facility] Work Phone: Bilirubin Test strip Ql (U)O rdered By: Dr. Burnham on 05-14-2022 Bilirubin Ql (U) Negative Negative [facility] Blood erythrocytes count (nu mber/volume)on 05-14-2022 RBC (Bld) [#/Vol] 4.31 10*6/uL 4.2-5.4 [facility] Work Phone: Blood hemoglobin measurement (mass/volume)on 05-14-2022 Hemoglobin (Bld) [Mass/Vol] 12.6 g/dL 12.0-15.0 [facility] Work Phone: Blood platelet mean volumeon 05-14-2022 Platelet mean volume (Bld) [Entitic vol] 10.4 fL 6.2-12.0 [facility] Work Phone: Determination of erythrocyte mean corpuscular volume (MCV)on 05-14-2022 MCV (RBC) [Entitic vol] 88.6 fL 81-[address] [facility] Work Phone: Hematocrit Auto (Bld) [Volum e fraction]on 05-14-2022 Hematocrit (Bld) [Volume fraction] 38.2 % 37-47 [facility] Work Phone: Influenza virus A and B and SARS-CoV-2 (COVID-19) Ag panel - Upper respiratory specimOrdered By: Dr. Burnham on 05-14-2022 SARS-CoV-2 (COVID-19) RNA KAYLIE+probe Ql (Resp) [facility] Ketones Test strip Ql (U)Ord ered By: Dr. Burnham on 05-14-2022 Ketones Ql (U) Negative Negative [facility] Laboratory - Chemistry and C hemistry - challengeon 05-14-2022 CO2 [Moles/Vol] 26.0 mmol/L 21.0-32.0 [facility] Work Phone: Urea nitrogen/Creatinine [Mass ratio] 25.4 mg/mg 10-20 [facility] Work Phone: Laboratory - Hematology and Cell countson 05-14-2022 Erythrocyte distribution width (RBC) [Entitic vol] 44.1 fL 35.1-43.9 [facility] Work Phone: Erythrocyte distribution width (RBC) [Ratio] 13.6 % 11.6-14.6 [facility] Work Phone: MCH (RBC) [Entitic mass] 29.2 pg 27.0-32.0 [facility] Work Phone: MCHC Auto (RBC) [Mass/Vol]on 05-14-2022 MCHC (RBC) [Mass/Vol] 33.0 g/dL 32-36 [facility] Work Phone: Mucus LM Ql (Urine sed)Order ed By: Dr. Burnham on 05-14-2022 Mucus Ql (Urine sed) 0 SEEN /hpf [facility] Nitrite Test strip Ql (U)Ord ered By: Dr. Burnham on 05-14-2022 Nitrite Ql (U) Positive Negative [facility] No Panel Informationon 05-14 Estimated Creatinine Clearance Calc 23.87 ml/min [facility] Work Phone: Estimated GFR (MDRD) Amer 50 mL/min >60 [facility] Work Phone: Comment on above: GFR Calc Estimated GFR (MDRD) Non-Af Amer 41 mL/min >60 [facility] Work Phone: Comment on above: Non- GFR Calc Platelets bldon 05-14-2022 Platelets (Bld) [#/Vol] 258 10*3/uL 150-450 [facility] Work Phone: Protein Test strip Ql (U)Ord ered By: Dr. Burnham on 05-14-2022 Protein Ql (U) 30 mg/dl Negative [facility] Serum or plasma calcium brian urement (mass/volume)on 05-14-2022 Calcium [Mass/Vol] 9.7 mg/dL 8.5-10.1 [facility] Work Phone: Serum or plasma creatinine m easurement (mass/volume)on 05-14-2022 Creatinine [Mass/Vol] 1.30 mg/dL 0.55-1.02 [facility] Work Phone: Comment on above: The validity of the calculated GFR & GFRAA in patients over 70 years has not been determined. Clinical correlation is essential. Serum or plasma urea nitroge n measurement (mass/volume)on 05-14-2022 Urea nitrogen [Mass/Vol] 33 mg/dL 7-18 [facility] Work Phone: Squamous epithelial cells de tection in urine sediment by light microscopyOrdered By: Dr. Burnham on 05-14-2022 Epithelial cells.squamous LM Ql (Urine sed) 5-10 SEEN /hpf 5-10 [facility] Thin prep Papanicolaou smear with manual screeningon 05-14-2022 Thin prep Papanicolaou smear with manual screening 4 5-15 [facility] Work Phone: Urine blood detectionOrdered By: Dr. Burnham on 05-14-2022 RBC Ql (U) Negative Negative [facility] RBC Ql (U) 0 SEEN /hpf 0-5 [facility] Urine clarityOrdered By: Dr. Burnham on 05-14-2022 Clarity (U) Clear Clear [facility] Urine color determinationOrd ered By: Dr. Burnham on 05-14-2022 Color (U) Straw Yellow [facility] Urine glucose detectionOrder ed By: Dr. Burnham on 05-14-2022 Glucose Ql (U) Normal mg/dl Normal [facility] Urine leukocyte esterase det ection by dipstickOrdered By: Dr. Burnham on 05-14-2022 Leukocyte esterase Test strip Ql (U) 500 /ul Negative [facility] Urine pHOrdered By: Dr. Aleyda mast on 05-14-2022 pH (U) 7.0 [pH] 5.0 - 8.0 [facility] Urine sediment bacteria coun t by microscopy (number/high power field)Ordered By: Dr. Burnham on 05-14-2022 Bacteria LM.HPF (Urine sed) [#/Area] 1 /[HPF] None Seen [facility] Urine specific gravity measu rementOrdered By: Dr. Burnham on 05-14-2022 Specific gravity (U) [Rel density] 1.010 1.002-1.[address] [facility] Urobilinogen Auto test strip Ql (U)Ordered By: Dr. Burnham on 05-14-2022 Urobilinogen Ql (U) Normal mg/dl Normal [facility] CATECHOLAMINES TOTAL, URINE ([id number])Ordered By: Lighting Fixture Installer on 05-12-2022 DOPamine (24H U) [Mass/Time] 108 {ug/24_hr} Normal 0-510 [facility] Work Phone: Comment on above: Test(s) 889386-Scoel phrine, Urine; 543296-Rjcgnynufkittk, Ur; 909345-Vhfyrutf, Urine; 413586-Kccsgyaecnpnfui, Ur; 264213-Pknlwzejadhu, Ur;209026-FON, Urinewas developed and its performance characteristics determinedby [employer]. It has not been cleared or approved by the Foodand Drug Administration.PATIENT NOT FASTINGPERFORMED BY: [email or web address] [address] [id number] Information: START 05/12/22@845AM DOPamine (U) [Mass/Vol] 114 ug/L Normal [facility] Work Phone: Comment on above: Test(s) 817654-Hxmyk phrine, Urine; 974603-Yvjudmmgnmvgjl, Ur; 750355-Nrsfyavc, Urine; 219665-Euypqywgpepouqj, Ur; 665105-Tpmwsiwzbwwn, Ur;351026-CEE, Urinewas developed and its performance characteristics determinedby [employer]. It has not been cleared or approved by the Foodand Drug Administration.PATIENT NOT FASTINGPERFORMED BY: [email or web address] [address] [id number] Information: START 05/12/22@845AM EPINEPHrine (24H U) [Mass/Time] 1 {ug/24_hr} Normal 0-20 [facility]; [facility] Work Phone: Comment on above: Test(s) 313636-Vxlxl phrine, Urine; 657456-Zdmbudnutkcwoh, Ur; 499409-Fbyqxujr, Urine; 997100-Zuzufsthqvfauhc, Ur; 463069-Zkqhzsxsjmaf, Ur;792109-VON, Urinewas developed and its performance characteristics determinedby [facility]. It has not been cleared or approved by the Foodand Drug Administration.PATIENT NOT FASTINGPERFORMED BY: [email or web address] [id number] Information: START 05/12/22@845AM EPINEPHrine (U) [Mass/Vol] 1 ug/L Normal [facility]; [facility] Work Phone: Comment on above: Test(s) 218382-Gvoxj phrine, Urine; 298504-Ixozperpjnmdzx, Ur; 602557-Dbexxjjc, Urine; 168223-Qeheflpackxtbsb, Ur; 403463-Qivobpfffhww, Ur;569647-DVT, Urinewas developed and its performance characteristics determinedby [facility]. It has not been cleared or approved by the Foodand Drug Administration.PATIENT NOT FASTINGPERFORMED BY: [email or web address] [id number] Information: START 05/12/22@845AM Norepinephrine (24H U) [Mass/Time] 17 {ug/24_hr} Normal 0-135 [facility]; [facility] Work Phone: Comment on above: Test(s) 429063-Eedsp phrine, Urine; 616512-Gdhcfnqbjkkbrc, Ur; 758045-Wmrlceqi, Urine; 188252-Oyjtmqrowadfasb, Ur; 151790-Omrftjjpuqzu, Ur;729874-ZCT, Urinewas developed and its performance characteristics determinedby [facility]. It has not been cleared or approved by the Foodand Drug Administration.PATIENT NOT FASTINGPERFORMED BY: [facility] [id number] Information: START 05/12/22@845AM Norepinephrine (U) [Mass/Vol] 18 ug/L Normal [facility]; [facility] Work Phone: Comment on above: Test(s) 638302-Dhsmh phrine, Urine; 768260-Zwrfaegtmuywaa, Ur; 289060-Wbmfacon, Urine; 061650-Gqiwqwxrpnzhglb, Ur; 803978-Vfhrwoirpqwr, Ur;036535-XYP, Urinewas developed and its performance characteristics determinedby [facility]. It has not been cleared or approved by the Foodand Drug Administration.PATIENT NOT FASTINGPERFORMED BY: [employer] [id number] Information: START 05/12/22@845AM METANEPHRINES - URINE ([id number] )Ordered By: Lighting Fixture Installer on 05-12-2022 Metanephrine (24H U) [Mass/Time] 58 {ug/24_hr} Normal 36-209 [facility]; [facility] Work Phone: Comment on above: Test(s) 246204-Egiut phrine, Urine; 783360-Fhlpzmfopmvuzh, Ur; 304781-Cmtrktgz, Urine; 749091-Pfanbggnytckmav, Ur; 301720-Fnpgbexssila, Ur;313617-LRK, Urinewas developed and its performance characteristics determinedby [facility]. It has not been cleared or approved by the Foodand Drug Administration.PATIENT NOT FASTINGPERFORMED BY: [employer] [address] [id number] Metanephrines (24H U) [Mass/Vol] 61 ug/L Normal [facility]; [facility] Work Phone: Comment on above: Test(s) 716835-Duzxu phrine, Urine; 318057-Jjvbmadkpmepdm, Ur; 004255-Hqemjvgg, Urine; 192344-Urtigvmqmriooky, Ur; 617617-Wwrtqqspyyvt, Ur;239851-XPZ, Urinewas developed and its performance characteristics determinedby [facility]. It has not been cleared or approved by the Foodand Drug Administration.PATIENT NOT FASTINGPERFORMED BY: [employer] [id number] Normetanephrine (24H U) [Mass/Time] 244 {ug/24_hr} Normal 131-612 [facility]; [facility] Work Phone: Comment on above: Test(s) 691623-Nxwrs phrine, Urine; 247214-Zenqzqdviojitu, Ur; 302245-Xhklucjo, Urine; 770822-Taeqjfgbodriywx, Ur; 322931-Olksxohrhgue, Ur;575158-QJA, Urinewas developed and its performance characteristics determinedby [facility]. It has not been cleared or approved by the Foodand Drug Administration.PATIENT NOT FASTINGPERFORMED BY: [facility] [address] [id number] Normetanephrine (24H U) [Mass/Vol] 257 ug/L Normal [facility]; [facility] Work Phone: Comment on above: Test(s) 697272-Ijmmo phrine, Urine; 756003-Hhouqrzcozvxts, Ur; 964065-Nsjdpnkj, Urine; 804482-Fdashlshctkcxwj, Ur; 376882-Lndzalzdxuoh, Ur;131700-VSX, Urinewas developed and its performance characteristics determinedby [facility]. It has not been cleared or approved by the Foodand Drug Administration.PATIENT NOT FASTINGPERFORMED BY: [employer] [address] [id number] URINE VMA ([id number])Ordered By: Lighting Fixture Installer on 05-12-2022 Vanillylmandelate (24H U) [Mass/Time] 2.8 {mg/24_hr} Normal 0.0-7.5 [facility]; [facility] Work Phone: Comment on above: Test(s) 201128-Whavn phrine, Urine; 434793-Sihsbagoksqqhn, Ur; 121649-Esmsueib, Urine; 686139-Lpfbjnejewgknjk, Ur; 106985-Ydcvvamxaiyp, Ur;697768-ARM, Urinewas developed and its performance characteristics determinedby [facility]. It has not been cleared or approved by the Foodand Drug Administration.PATIENT NOT FASTINGPERFORMED BY: [employer] [facility] [address] [id number] Vanillylmandelate (U) [Mass/Vol] 2.9 mg/L Normal [facility]; [facility] Work Phone: Comment on above: Test(s) 682177-Cihbr phrine, Urine; 514895-Iluyjbdkgdakcp, Ur; 599156-Gbswkdsl, Urine; 740636-Ekhtpnybraorlxn, Ur; 412746-Lgcuodjfdfwb, Ur;732162-SVW, Urinewas developed and its performance characteristics determinedby [facility]. It has not been cleared or approved by the Foodand Drug Administration.PATIENT NOT FASTINGPERFORMED BY: [email or web address] [address] [id number] ALDOSTERONE ([id number])Ordered B y: Lighting Fixture Installer on 05-10-2022 Aldosterone [Mass/Vol] <1.0 Normal 0.0-30.0 [facility]; [facility] Work Phone: Comment on above: Test(s) 473958-Shvzo terone; 543278-Cstxl Activity, Plasmawas developed and its performance characteristics determinedby [employer]. It has not been cleared or approved by the Foodand Drug Administration.PATIENT NOT FASTINGPERFORMED BY: [email or web address] [address] [id number] RENIN ([id number])Ordered By: s tem Cutting Department Supervisor on 05-10-2022 Renin (P) [Catalytic activity/Vol] 0.871 {ng/mL/hr} Normal 0.167-5.38 0 [facility]; [facility] Work Phone: Comment on above: Test(s) 045783-Tvjkk terone; 186756-Oqkvc Activity, Plasmawas developed and its performance characteristics determinedby [employer]. It has not been cleared or approved by the Foodand Drug Administration.PATIENT NOT FASTINGPERFORMED BY: [email or web address] [address] [id number] Glucose Glucometer (BldC) [M ass/Vol]Ordered By: Dr. Michel on 04-30-2022 Glucose [Mass/Vol] 114 mg/dL 74-106 [facility] Comment on above: MANAGEMENT OF PATIEN T CARE PER NURSING PROTOCOL Basophil percentageOrdered B y: Dr. Michel on 04-25-2022 Basophil percentage 108 mg/dL 74-106 [facility] Basophil percentage 7.3 g/dL 6.4-8.2 [facility] Basophil percentage 0.90 mg/dL 0.20-1.00 [facility] Basophil percentage 142 mmol/L 136-145 [facility] Basophil percentage 4.7 mmol/L 3.5-5.1 [facility] Basophil percentage 110 mmol/L 98-107 [facility] Basophils (Bld) [#/Vol] 7.8 10*3/uL 4.4-11.0 [facility] Basophil percentageon 2021 Bilirubin [Mass/Vol] 0.90 mg/dL 0.20-1.00 [facility] Work Phone: Comment on above: For patients on eltr ombopag therapy, use of Dimension Onward TBIL is not recommended. Chloride [Moles/Vol] 110 mmol/L 98-107 [facility] Work Phone: Glucose [Mass/Vol] 108 mg/dL 74-106 [facility] Work Phone: Comment on above: Fasting Glucose resu lt from 100 to 125 mg/dL suggests IMPAIRED HOMEOSTASIS per A.D.A. criteria. Potassium [Moles/Vol] 4.7 mmol/L 3.5-5.1 [facility] Work Phone: Protein [Mass/Vol] 7.3 g/dL 6.4-8.2 [facility] Work Phone: Sodium [Moles/Vol] 142 mmol/L 136-145 [facility] Work Phone: WBC (Bld) [#/Vol] 7.8 10*3/uL 4.4-11.0 [facility] Work Phone: Blood erythrocytes count (nu mber/volume)Ordered By: Dr. Michel on 04-25-2022 RBC (Bld) [#/Vol] 4.73 10*6/uL 4.2-5.4 [facility] Blood hemoglobin measurement (mass/volume)Ordered By: Dr. Michel on 04-25-2022 Hemoglobin (Bld) [Mass/Vol] 14.3 g/dL 12.0-15.0 [facility] Blood platelet mean volumeOr dered By: Dr. Michel on 04-25-2022 Platelet mean volume (Bld) [Entitic vol] 10.3 fL 6.2-12.0 [facility] Determination of erythrocyte mean corpuscular volume (MCV)Ordered By: Dr. Michel on 04-25-2022 MCV (RBC) [Entitic vol] 91.5 fL 81-[address] [facility] Hematocrit Auto (Bld) [Volum e fraction]Ordered By: Dr. Michel on 04-25-2022 Hematocrit (Bld) [Volume fraction] 43.3 % 37-47 [facility] Laboratory - Chemistry and C hemistry - challengeon 04-25-2022 ALP [Catalytic activity/Vol] 62 U/L 45-117 [facility] Work Phone: ALT [Catalytic activity/Vol] 24 U/L 13-56 [facility] Work Phone: CO2 [Moles/Vol] 29.0 mmol/L 21.0-32.0 [facility] Work Phone: Globulin (S) [Mass/Vol] 4.0 g/dL 2.2-4.[address] [facility] Work Phone: Urea nitrogen/Creatinine [Mass ratio] 29.8 mg/mg 10-20 [facility] Work Phone: Laboratory - Hematology and Cell countson 04-25-2022 Erythrocyte distribution width (RBC) [Entitic vol] 46.3 fL 35.1-43.9 [facility] Work Phone: Erythrocyte distribution width (RBC) [Ratio] 13.5 % 11.6-14.6 [facility] Work Phone: MCH (RBC) [Entitic mass] 30.2 pg 27.0-32.0 [facility] Work Phone: MCHC Auto (RBC) [Mass/Vol]Or dered By: Dr. Michel on 04-25-2022 MCHC (RBC) [Mass/Vol] 33.0 g/dL 32-36 [facility] No Panel Informationon 04-25 Estimated GFR (MDRD) Amer 50 mL/min >60 [facility] Work Phone: Comment on above: GFR Calc Estimated GFR (MDRD) Non-Af Amer 41 mL/min >60 [facility] Work Phone: Comment on above: Non- GFR Calc No Panel InformationOrdered By: Dr. Michel on 04-25-2022 30.2 pg 27.0-32.0 [facility] 13.5 % 11.6-14.6 [facility] 46.3 fl 35.1-43.9 [facility] 41 mL/min >60 [facility] 50 mL/min >60 [facility] 29.8 RATIO 10-20 [facility] 4.0 g/dL 2.2-4.2 [facility] 62 U/L 45-117 [facility] 24 U/L 13-56 [facility] 29.0 mmol/L 21.0-32.0 [facility] Platelets bldOrdered By: Dr. Michel on 04-25-2022 Platelets (Bld) [#/Vol] 213 10*3/uL 150-450 [facility] Serum or plasma albumin brian urement (mass/volume)Ordered By: Dr. Michel on 04-25-2022 Albumin [Mass/Vol] 3.3 g/dL 3.2-5.0 [facility] Serum or plasma albumin/glob ulin mass ratioOrdered By: Dr. Michel on 04-25-2022 Albumin/Globulin [Mass ratio] 0.8 {ratio} 0.9-2.4 [facility] Serum or plasma calcium brian urement (mass/volume)Ordered By: Dr. Michel on 04-25-2022 Calcium [Mass/Vol] 10.2 mg/dL 8.5-10.1 [facility] Serum or plasma creatinine m easurement (mass/volume)Ordered By: Dr. Michel on 04-25-2022 Creatinine [Mass/Vol] 1.31 mg/dL 0.55-1.02 [facility] Comment on above: The validity of the calculated GFR & GFRAA in patients over 70 years has not been determined. Clinical correlation is essential. Serum or plasma urea nitroge n measurement (mass/volume)Ordered By: Dr. Michel on 04-25-2022 Urea nitrogen [Mass/Vol] 39 mg/dL 7-18 [facility] Thin prep Papanicolaou smear with manual screeningOrdered By: Dr. Michel on 04-25-2022 Thin prep Papanicolaou smear with manual screening 14 U/L 15-37 [facility] Thin prep Papanicolaou smear with manual screening 3 5-15 [facility] ACTH ([id number])Ordered By: Syst em Cutting Department Supervisor on 03-11-2022 Corticotropin (P) [Mass/Vol] 32.2 pg/mL Normal 7.2-63.3 [facility] Work Phone: Comment on above: ACTH reference inter sophia for samples collected between 7 and 10 AM. PATIENT NOT FASTINGP ERFORMED BY: DrinkSendo70 [facility] [id number] Cortisol ([id number])Ordered By: Lighting Fixture Installer on 03-11-2022 Cortisol [Mass/Vol] 11.4 ug/dL Normal Compr ehensive Internal [facility]; [facility] Work Phone: Comment on above: Cortisol AM 6.2 - 19 .4 Cortisol PM 2.3 - 11.9 PATIENT NOT FASTINGP ERFORMED BY: DrinkSendo70 [facility] [id number] Catecholamines,24-Hour Urine ([id number])Ordered By: Lighting Fixture Installer on 03-05-2022 DOPamine (24H U) [Mass/Time] 159 {ug/24_hr} Normal 0-510 [facility]; [facility] Work Phone: Comment on above: Test(s) 519574-Dmczu phrine, Urine; 356685-Vmkubsnkgierao, Ur; 604653-Awwacpsi, Urine; 724946-Mtdodehjxuaiexq, Ur; 086854-Zkfkfbsolmdx, Ur;354921-Prxhpedm,F,ug/L,Uwas developed and its performance characteristics determinedby [employer]. It has not been cleared or approved by the Foodand Drug Administration.PATIENT NOT FASTINGPERFORMED BY: [address] [id number] DOPamine (U) [Mass/Vol] 106 ug/L Normal C omprehensive Internal Medicine; [facility] Work Phone: Comment on above: Test(s) 478417-Fregw phrine, Urine; 840049-Xtgyipxiasfqhc, Ur; 506246-Arubjufw, Urine; 396128-Gqhrtzfbnjwdwnx, Ur; 138715-Retpgawbgxfz, Ur;119771-Llddorqq,F,ug/L,Uwas developed and its performance characteristics determinedby [facility]. It has not been cleared or approved by the Foodand Drug Administration.PATIENT NOT FASTINGPERFORMED BY: [email or web address] [address] [id number] EPINEPHrine (24H U) [Mass/Time] 2 {ug/24_hr} Normal 0-20 [facility]; [facility] Work Phone: Comment on above: Test(s) 434697-Efwtq phrine, Urine; 835432-Qmzsxtvvmbtyph, Ur; 449832-Elekfswv, Urine; 226452-Lktbkxqbnsrsnuz, Ur; 226592-Wopbkjxcuhqu, Ur;294686-Lbtuzcam,F,ug/L,Uwas developed and its performance characteristics determinedby [facility]. It has not been cleared or approved by the Foodand Drug Administration.PATIENT NOT FASTINGPERFORMED BY: [email or web address] [address] [id number] EPINEPHrine (U) [Mass/Vol] 1 ug/L Normal [facility]; [facility] Work Phone: Comment on above: Test(s) 167416-Qlscz phrine, Urine; 266862-Kaksudrzvgkdbw, Ur; 933305-Lghmdzip, Urine; 099020-Cmmirenitwtbqej, Ur; 872440-Orpsugbcuhji, Ur;067341-Epaxscfw,F,ug/L,Uwas developed and its performance characteristics determinedby [facility]. It has not been cleared or approved by the Foodand Drug Administration.PATIENT NOT FASTINGPERFORMED BY: [email or web address] [address] [id number] Norepinephrine (24H U) [Mass/Time] 30 {ug/24_hr} Normal 0-135 [facility]; [facility] Work Phone: Comment on above: Test(s) 634045-Uhueo phrine, Urine; 278079-Gnjcecifzkwfim, Ur; 632959-Bdiheqoj, Urine; 356944-Fqvpwbclytasawd, Ur; 991801-Yfpnexxhzuks, Ur;208521-Soocmakm,F,ug/L,Uwas developed and its performance characteristics determinedby [employer]. It has not been cleared or approved by the Foodand Drug Administration.PATIENT NOT FASTINGPERFORMED BY: [employer] [address] [id number] Norepinephrine (U) [Mass/Vol] 20 ug/L Normal [facility]; [facility] Work Phone: Comment on above: Test(s) 260235-Kwxyh phrine, Urine; 347902-Bdnwksiylgchcy, Ur; 274053-Afqbbyxb, Urine; 723507-Elrnnrseywtbxsy, Ur; 309973-Chuttgaykngy, Ur;808279-Krbfphhy,F,ug/L,Uwas developed and its performance characteristics determinedby [employer]. It has not been cleared or approved by the Foodand Drug Administration.PATIENT NOT FASTINGPERFORMED BY: [email or web address] [address] [id number] Cortisol,Urinary Free 24- Ho ur Urine ([id number])Ordered By: Lighting Fixture Installer on 03-05-2022 Cortisol Free (24H U) [Mass/Time] 11 {ug/24_hr} Normal 3-49 [facility]; [facility] Work Phone: Comment on above: Test(s) 750781-Asvdq phrine, Urine; 356768-Zhtrseogslidpe, Ur; 250999-Bqunjxxh, Urine; 787473-Khydlbsbmsykttz, Ur; 231951-Qycjaqsrzlim, Ur;229466-Wzhnawqc,F,ug/L,Uwas developed and its performance characteristics determinedby [employer]. It has not been cleared or approved by the Foodand Drug Administration.PATIENT NOT FASTINGPERFORMED BY: [employer] [id number] Cortisol Free (U) [Mass/Vol] 7 ug/L Normal [facility]; [facility] Work Phone: Comment on above: Test(s) 834127-Zpzgs phrine, Urine; 593997-Vjpsmqlgpfysfx, Ur; 087133-Ntewindt, Urine; 018016-Uauaptokijktqyp, Ur; 287117-Mirmoahxtskf, Ur;595248-Njvdzdhq,F,ug/L,Uwas developed and its performance characteristics determinedby [facility]. It has not been cleared or approved by the Foodand Drug Administration.PATIENT NOT FASTINGPERFORMED BY: [employer] [id number] METANEPHRINES - URINE ([id number] )Ordered By: Lighting Fixture Installer on 03-05-2022 Metanephrine (24H U) [Mass/Time] 66 {ug/24_hr} Normal 36-209 [facility]; [facility] Work Phone: Comment on above: 24 hr urine; Test(s) 871924-Ttltmwlelfp, Urine; 584919-Xuyormepiwylbt, Ur; 627617-Udszhmlx, Urine; 778869-Hvaigttxxgcccee, Ur; 763875-Imynqexlrome, Ur;818689-Rdflmqtf,F,ug/L,Uwas developed and its performance characteristics determinedby [employer]. It has not been cleared or approved by the Foodand Drug Administration.PATIENT NOT FASTINGPERFORMED BY: [email or web address] [address] [id number] Metanephrines (24H U) [Mass/Vol] 44 ug/L Normal [facility]; [facility] Work Phone: Comment on above: 24 hr urine; Test(s) 608177-Cbpdxhzziwj, Urine; 310880-Pmhimmnqjptwzb, Ur; 784060-Ndizafwl, Urine; 962792-Umnpszcunddbgpc, Ur; 820881-Zghisazwabbn, Ur;152637-Gcsixmda,F,ug/L,Uwas developed and its performance characteristics determinedby [employer]. It has not been cleared or approved by the Foodand Drug Administration.PATIENT NOT FASTINGPERFORMED BY: [employer] [id number] Normetanephrine (24H U) [Mass/Time] 296 {ug/24_hr} Normal 131-612 [facility]; [facility] Work Phone: Comment on above: 24 hr urine; Test(s) 872327-Hpwizuapken, Urine; 724275-Wzjxgyxztppckk, Ur; 639228-Glcfjbvu, Urine; 239245-Eoitosqpaiphdxc, Ur; 385867-Kwkhiqaejczr, Ur;709642-Nsldyqri,F,ug/L,Uwas developed and its performance characteristics determinedby [employer]. It has not been cleared or approved by the Foodand Drug Administration.PATIENT NOT FASTINGPERFORMED BY: [email or web address] [address] [id number] Normetanephrine (24H U) [Mass/Vol] 197 ug/L Normal [facility]; [facility] Work Phone: Comment on above: 24 hr urine; Test(s) 649619-Tehoodnrpjd, Urine; 014026-Xpjgfpnfudyeht, Ur; 018571-Ynxqwjlw, Urine; 264691-Wjjjczfkyvcxnif, Ur; 075440-Vezisaatvuit, Ur;926569-Xmrljrvr,F,ug/L,Uwas developed and its performance characteristics determinedby [employer]. It has not been cleared or approved by the Foodand Drug Administration.PATIENT NOT FASTINGPERFORMED BY: [email or web address] [address] [id number] Absolute lymphocyte counton 02-18-2022 Lymphocytes Auto (Unsp spec) [#/Vol] 2.75 10*3/uL 0.83-4.51 [facility] Work Phone: Basophil percentageon 2021 Basophils/100 WBC (Bld) 0.7 % 0-[address] [facility] Work Phone: Bilirubin [Mass/Vol] 1.20 mg/dL 0.20-1.00 [facility] Work Phone: Comment on above: For patients on eltr ombopag therapy, use of Dimension Onward TBIL is not recommended. Chloride [Moles/Vol] 109 mmol/L 98-107 [facility] Work Phone: Eosinophils/100 WBC (Bld) 3.4 % 0-5 [facility] Work Phone: Glucose [Mass/Vol] 92 mg/dL 74-106 [facility] Work Phone: Neutrophils (Bld) [#/Vol] 6.1 10*3/uL 2.0-7.7 [facility] Work Phone: Neutrophils/100 WBC (Bld) 59.7 % 47-70 [facility] Work Phone: Potassium [Moles/Vol] 4.6 mmol/L 3.5-5.1 [facility] Work Phone: Protein [Mass/Vol] 7.2 g/dL 6.4-8.2 [facility] Work Phone: Sodium [Moles/Vol] 137 mmol/L 136-145 [facility] Work Phone: WBC (Bld) [#/Vol] 10.1 10*3/uL 4.4-11.0 [facility]: Blood erythrocytes count (nu mber/volume)on 02-18-2022 RBC (Bld) [#/Vol] 4.40 10*6/uL 4.2-5.4 [facility] Work Phone: Blood hemoglobin measurement (mass/volume)on 02-18-2022 Hemoglobin (Bld) [Mass/Vol] 13.1 g/dL 12.0-15.0 [facility] Work Phone: Blood lymphocytes/100 leukoc yteson 02-18-2022 Lymphocytes/100 WBC (Bld) 27.1 % 19-41 [facility] Work Phone: Blood monocytes/100 leukocyt eson 02-18-2022 Monocytes/100 WBC (Bld) 8.8 % 0-[address] [facility] Work Phone: Blood platelet mean volumeon 02-18-2022 Platelet mean volume (Bld) [Entitic vol] 10.6 fL 6.2-12.0 [facility] Work Phone: Determination of erythrocyte mean corpuscular volume (MCV)on 02-18-2022 MCV (RBC) [Entitic vol] 90.9 fL 81-[address] [facility] Work Phone: Erythrocyte sedimentation ra nyasia 02-18-2022 ESR (Bld) [Velocity] 26 mm/h 0-30 [facility]: Hematocrit Auto (Bld) [Volum e fraction]on 02-18-2022 Hematocrit (Bld) [Volume fraction] 40.0 % 37-47 [facility] Work Phone: Laboratory - Chemistry and C hemistry - challengeon 02-18-2022 ALP [Catalytic activity/Vol] 67 U/L 45-117 [facility] Work Phone: ALT [Catalytic activity/Vol] 29 U/L 13-56 [facility] Work Phone: CO2 [Moles/Vol] 25.0 mmol/L 21.0-32.0 [facility] Work Phone: Globulin (S) [Mass/Vol] 3.8 g/dL 2.2-4.[address] [facility] Work Phone: Urea nitrogen/Creatinine [Mass ratio] 29.5 mg/mg 10-20 [facility] Work Phone: Laboratory - Hematology and Cell countson 02-18-2022 Erythrocyte distribution width (RBC) [Entitic vol] 45.6 fL 35.1-43.9 [facility] Work Phone: Erythrocyte distribution width (RBC) [Ratio] 13.7 % 11.6-14.6 [facility] Work Phone: Immature granulocytes/100 WBC (Bld) 0.300 % 0.0-0.9 [facility] Work Phone: Comment on above: IG% - Immature Granu locytes (promyelocytes, myelocytes and metamyelocytes) > 1% indicates that a LEFT SHIFT is Present. MCH (RBC) [Entitic mass] 29.8 pg 27.0-32.0 [facility] Work Phone: Nucleated RBC/100 WBC (Bld) [Ratio] 0 % 0-5 [facility] Work Phone: MCHC Auto (RBC) [Mass/Vol]on 02-18-2022 MCHC (RBC) [Mass/Vol] 32.8 g/dL 32-36 [facility] Work Phone: No Panel Informationon 02-18 Estimated GFR (MDRD) Amer 59 mL/min >60 [facility] Work Phone: Comment on above: GFR Calc Estimated GFR (MDRD) Non-Af Amer 49 mL/min >60 [facility] Work Phone: Comment on above: Non- GFR Calc Platelets bldon 02-18-2022 Platelets (Bld) [#/Vol] 252 10*3/uL 150-450 [facility] Work Phone: Serum or plasma C reactive p rotein measurement (mass/volume)on 02-18-2022 CRP [Mass/Vol] 8.28 mg/L 0.0-3.0 [facility] Work Phone: Comment on above: C-Reactive Protein ( CRP) provides useful information for thediagnosis, therapy and monitoring of inflammatory processesand associated diseases. For the evaluation of Relative Riskfor Cardiovascular Disease, a High Sensitivity CRP (HSCRP)should be ordered. Serum or plasma albumin brian urement (mass/volume)on 02-18-2022 Albumin [Mass/Vol] 3.4 g/dL 3.2-5.0 [facility] Work Phone: Serum or plasma albumin/glob ulin mass ratioon 02-18-2022 Albumin/Globulin [Mass ratio] 0.9 {ratio} 0.9-2.4 [facility] Work Phone: Serum or plasma calcium brian urement (mass/volume)on 02-18-2022 Calcium [Mass/Vol] 10.0 mg/dL 8.5-10.1 [facility] Work Phone: Serum or plasma creatinine m easurement (mass/volume)on 02-18-2022 Creatinine [Mass/Vol] 1.12 mg/dL 0.55-1.02 [facility] Work Phone: Comment on above: The validity of the calculated GFR & GFRAA in patients over 70 years has not been determined. Clinical correlation is essential. Serum or plasma urea nitroge n measurement (mass/volume)on 02-18-2022 Urea nitrogen [Mass/Vol] 33 mg/dL 7-18 [facility] Work Phone: Thin prep Papanicolaou smear with manual screeningon 02-18-2022 Thin prep Papanicolaou smear with manual screening 19 U/L 15-37 [facility] Work Phone: Thin prep Papanicolaou smear with manual screening 3 5-15 [facility] Work Phone: Blood Glucose , Office ([phone])Ordered By: Keri Johnson on 12-31-2021 Glucose Glucometer (BldC) [Moles/Vol] 96 1 Normal [facility]; [facility] Work Phone: HgA1C , Office ([id number])Ordere d By: Martina Lal on 12-31-2021 HbA1c (Bld) [Mass fraction] 5.9 % Normal 4.6 - 7.1 [facility]; [facility] Work Phone: POTASSIUM SERUM ([id number])Order ed By: Lighting Fixture Installer on 12-19-2021 Potassium [Moles/Vol] 5.4 mmol/L Abnormal 3.5-5.2 [facility] prehensive Internal Medicine; [facility] Work Phone: Comment on above: PATIENT NOT FASTINGP ERFORMED BY: HALEIGH [facility] [id number] [facility] [id number] METABOLIC PANEL, COMPREHENSI VE ([id number])Ordered By: Lighting Fixture Installer on 12-18-2021 Albumin [Mass/Vol] 4.2 g/dL Normal 3.6-4.6 [facility]; [facility] Work Phone: Comment on above: PATIENT NOT FASTINGP ERFORMED BY: [employer] [facility] [id number] I and love and youNorth [facility] [id number] Albumin/Globulin [Mass ratio] 1.6 {ratio} Normal 1.2-2.2 [facility]; [facility] Work Phone: Comment on above: PATIENT NOT FASTINGP ERFORMED BY: HALEIGH [facility] [id number] [address]Dublin [place] [id number] ALP [Catalytic activity/Vol] 67 U/L Normal 44-121 [facility]; [facility] Work Phone: Comment on above: PATIENT NOT FASTINGP ERFORMED BY: CB [facility] [id number] [address]Dublin [place] [id number] ALT [Catalytic activity/Vol] 13 U/L Normal 0-32 [facility]; [facility] Work Phone: Comment on above: PATIENT NOT FASTINGP ERFORMED BY: CB [facility] Akrgfz6788 [address] RoadDublin [place] [id number] AST [Catalytic activity/Vol] 18 U/L Normal 0-40 [facility]; [facility] Work Phone: Comment on above: PATIENT NOT FASTINGP ERFORMED BY: CB [facility] Wijuou6295 [address]Dublin [place] [id number] Bilirubin [Mass/Vol] 1.1 mg/dL Normal 0.0-1.2 [facility]; [facility] Work Phone: Comment on above: PATIENT NOT FASTINGP ERFORMED BY: CB [facility] [id number] [address]Dublin [place] [id number] Calcium [Mass/Vol] 10.1 mg/dL Normal 8.7-10.3 [facility]; [facility] Work Phone: Comment on above: PATIENT NOT FASTINGP ERFORMED BY: CB [facility] Buukut4981 [address]Dublin [place] [id number] Chloride [Moles/Vol] 105 mmol/L Normal 96-106 [facility] rehensive Internal Medicine; [facility] Work Phone: Comment on above: PATIENT NOT FASTINGP ERFORMED BY: CB [facility] [id number] [address]Dublin [place] [id number] CO2 [Moles/Vol] 18 mmol/L Abnormal 20-29 [facility]; [facility] Work Phone: Comment on above: PATIENT NOT FASTINGP ERFORMED BY: HALEIGH Labco[facility]gardo WarrenCxncgb1699 [facility]in [place] [id number] Creatinine [Mass/Vol] 1.72 mg/dL Abnormal 0.57-1.00 Com prehensive [facility]; [facility] Work Phone: Comment on above: PATIENT NOT FASTINGP ERFORMED BY: LabcoBayshore Community HospitalOrwyca8805 [facility] [id number] GFR/1.73 sq M.predicted among non-blacks MDRD (S/P/Bld) [Vol rate/Area] 29 mL/min/{1.73_m2} Abnormal Comprehensiv e [facility] Medicine; [facility] Work Phone: Comment on above: PATIENT NOT FASTINGP ERFORMED BY: LabO[facility]la[facility] Hospital6370 [facility] [id number] Globulin (S) [Mass/Vol] 2.6 g/dL Normal 1.5-4.5 [facility]; [facility] Work Phone: Comment on above: PATIENT NOT FASTINGP ERFORMED BY: HALEIGH [facility] [id number] [facility] [id number] Glucose [Mass/Vol] 113 mg/dL Abnormal 65-[address] [facility]; [facility] Work Phone: Comment on above: PATIENT NOT FASTINGP ERFORMED BY: [facility] Gutwxg0152 [facility] [id number] Potassium [Moles/Vol] 5.7 mmol/L Abnormal 3.5-5.2 [facility] prehensive Internal Medicine; [facility] Work Phone: Comment on above: Client Requested Fla g PATIENT NOT FASTINGP ERFORMED BY: [facility] Hoabmw3675 [facility] [id number] Protein [Mass/Vol] 6.8 g/dL Normal 6.0-8.5 Compre hensive [facility] Medicine; [facility] Work Phone: Comment on above: PATIENT NOT FASTINGP ERFORMED BY: HALEIGH [facility] Zimrse5554 [address]Dublin [place] [id number] Sodium [Moles/Vol] 139 mmol/L Normal 134-144 [facility] Internal [facility]; [facility] Work Phone: Comment on above: PATIENT NOT FASTINGP ERFORMED BY: CB [facility] [id number] [address] RoadDublin [place] [id number] Urea nitrogen [Mass/Vol] 50 mg/dL Abnormal 8-27 [facility]; [facility] Work Phone: Comment on above: PATIENT NOT FASTINGP ERFORMED BY: HALEIGH [facility] Rtlbvn1853 [address]Dublin [place] [id number] Urea nitrogen/Creatinine [Mass ratio] 29 mg/mg Abnormal 12-28 [facility]; [facility] Work Phone: Comment on above: PATIENT NOT FASTINGP ERFORMED BY: HALEIGH [facility] Sttkwb1013 [address]Dublin [place] [id number] PARATHORMONE ([id number])Ordered By: Lighting Fixture Installer on 12-18-2021 Parathyrin.intact [Mass/Vol] 47 pg/mL Normal 15-65 [facility]; [facility] Work Phone: Comment on above: PATIENT NOT FASTINGP ERFORMED BY: HALEIGH [facility] Sizivv7765 [address]Dublin [place] [id number] No Panel Informationon 10-12 Parathyroid Hormone (Intact) 85.8 pg/mL 18.4-80.1 [facility] Work Phone: Serum or plasma calcium brian urement (mass/volume)on 10-12-2021 Calcium [Mass/Vol] 10.0 mg/dL 8.5-10.1 [facility] Work Phone: Renal function Panel ([id number]) Ordered By: Lighting Fixture Installer on 10-03-2021 Albumin [Mass/Vol] 4.1 g/dL Normal 3.6-4.6 [facility]; [facility] Work Phone: Comment on above: PATIENT NOT FASTINGP ERFORMED BY: HALEIGH [facility] [id number] [address]Dublin [place] [id number] Calcium [Mass/Vol] 10.6 mg/dL Abnormal 8.7-10.[address] [facility]; [facility] Work Phone: Comment on above: PATIENT NOT FASTINGP ERFORMED BY: CB [facility] Echedf5611 [address]Dublin [place] [id number] Chloride [Moles/Vol] 100 mmol/L Normal 96-106 Comp rehensive Internal Medicine; [facility] Work Phone: Comment on above: PATIENT NOT FASTINGP ERFORMED BY: CB [facility] Ekgzsa5644 [address]Dublin [place] [id number] CO2 [Moles/Vol] 24 mmol/L Normal 20-29 [facility]; [facility] Work Phone: Comment on above: PATIENT NOT FASTINGP ERFORMED BY: CB [facility] Dgohmw7102 [address]Dublin [place] [id number] Creatinine [Mass/Vol] 1.11 mg/dL Abnormal 0.57-1.00 [facility]; [facility] Work Phone: Comment on above: PATIENT NOT FASTINGP ERFORMED BY: CB [facility] Lriite8882 [address]Dublin [place] [id number] GFR/1.73 sq M.predicted among non-blacks MDRD (S/P/Bld) [Vol rate/Area] 49 mL/min/{1.73_m2} Abnormal Comprehensiv e Internal Medicine; [facility] Work Phone: Comment on above: PATIENT NOT FASTINGP ERFORMED BY: CB [facility] Vrpxuf8662 [address]guin RoadDublin [place] [id number] Glucose [Mass/Vol] 132 mg/dL Abnormal 65-99 [facility] Internal Medicine; [facility] Work Phone: Comment on above: PATIENT NOT FASTINGP ERFORMED BY: CB [facility] Zjixyp7838 [address]in RoadDublin [place] [id number] Phosphate [Mass/Vol] 3.1 mg/dL Normal 3.0-4.3 [facility]; [facility] Work Phone: Comment on above: PATIENT NOT FASTINGP ERFORMED BY: [facility]6370 [facility] [id number] Potassium [Moles/Vol] 4.4 mmol/L Normal 3.5-5.2 [facility]; [facility] Work Phone: Comment on above: PATIENT NOT FASTINGP ERFORMED BY: [facility]6370 [facility] [id number] Sodium [Moles/Vol] 140 mmol/L Normal 134-144 [facility] Internal Medicine; [facility] Work Phone: Comment on above: PATIENT NOT FASTINGP ERFORMED BY: [facility]6370 [facility] [id number] Urea nitrogen [Mass/Vol] 22 mg/dL Normal 8-27 [facility]; [facility] Work Phone: Comment on above: PATIENT NOT FASTINGP ERFORMED BY: [facility]6370 [facility] [id number] Urea nitrogen/Creatinine [Mass ratio] 20 mg/mg Normal 12-28 [facility]; [facility] Work Phone: Comment on above: PATIENT NOT FASTINGP ERFORMED BY: [facility]6370 [facility] [id number] ALDOSTERONE ([id number])Ordered B y: Lighting Fixture Installer on 10-01-2021 Aldosterone [Mass/Vol] 2.6 ng/dL Normal 0.0-30.0 [facility] Internal Medicine; [facility] Work Phone: Comment on above: Test(s) 170279-Projp terone; 760670-Cegra Activity, Plasmawas developed and its performance characteristics determinedby [facility]. It has not been cleared or approved by the Foodand Drug Administration.PATIENT NOT FASTINGPERFORMED BY: [address] [id number] RENIN (21623)Ordered By: ClauseMatchs tem Cutting Department Supervisor on 10-01-2021 Renin (P) [Catalytic activity/Vol] 0.839 {ng/mL/hr} Normal 0.167-5.38 0 [facility]; [facility] Work Phone: Comment on above: Test(s) 908242-Qxlsa terone; 436930-Lwfqc Activity, Plasmawas developed and its performance characteristics determinedby [facility]. It has not been cleared or approved by the Foodand Drug Administration.PATIENT NOT FASTINGPERFORMED BY: [email or web address] [address] [id number] CATECHOLAMINES TOTAL, URINE (83685)Ordered By: Lighting Fixture Installer on 09-30-2021 DOPamine (24H U) [Mass/Time] 182 {ug/24_hr} Normal 0-510 [facility]; [facility] Work Phone: Comment on above: Test(s) 930281-Fiipw phrine, Urine; 468853-Wtgnkisqeqadnf, Ur; 499600-Uwzifptb, Urine; 014679-Jbrgzrgalzhzaop, Ur; 500445-Xxzbwpyzhqib, Ur;969020-XOV, Urinewas developed and its performance characteristics determinedby [facility]. It has not been cleared or approved by the Foodand Drug Administration.PATIENT NOT FASTINGPERFORMED BY: [email or web address] [address] [id number] Information: START 09/30/21@9AM DOPamine (U) [Mass/Vol] 140 ug/L Normal C omprehensive Internal Medicine; [facility] Work Phone: Comment on above: Test(s) 757939-Qlflw phrine, Urine; 327773-Eqmyiqtiltooqg, Ur; 101846-Dkburmje, Urine; 862111-Jmffctzsguqmhxo, Ur; 398289-Dpfuuvmrirab, Ur;279315-KTW, Urinewas developed and its performance characteristics determinedby [facility]. It has not been cleared or approved by the Foodand Drug Administration.PATIENT NOT FASTINGPERFORMED BY: [email or web address] [address] [id number] Information: START 09/30/21@9AM EPINEPHrine (24H U) [Mass/Time] 4 {ug/24_hr} Normal 0-20 [facility]; [facility] Work Phone: Comment on above: Test(s) 267445-Bijvt phrine, Urine; 000416-Vptqsaekryiqnm, Ur; 550137-Odebqcfs, Urine; 606130-Svootkklzqieltf, Ur; 147312-Hdcicjqltiwc, Ur;966875-LKI, Urinewas developed and its performance characteristics determinedby [facility]. It has not been cleared or approved by the Foodand Drug Administration.PATIENT NOT FASTINGPERFORMED BY: [email or web address] [address] [id number] Information: START 09/30/21@9AM EPINEPHrine (U) [Mass/Vol] 3 ug/L Normal [facility]; [facility] Work Phone: Comment on above: Test(s) 214376-Zztzv phrine, Urine; 968128-Hurhloxbtjxvep, Ur; 588162-Oatwbrah, Urine; 197933-Vjebbhvlztdsado, Ur; 900032-Ejahcwosgsbw, Ur;294148-AVY, Urinewas developed and its performance characteristics determinedby [facility]. It has not been cleared or approved by the Foodand Drug Administration.PATIENT NOT FASTINGPERFORMED BY: [email or web address] [address] [id number] Information: START 09/30/21@9AM Norepinephrine (24H U) [Mass/Time] 52 {ug/24_hr} Normal 0-135 [facility]; [facility] Work Phone: Comment on above: Test(s) 173841-Wazsj phrine, Urine; 434509-Wkspcqnuqqdmsb, Ur; 014619-Fatclffm, Urine; 549750-Rmokiuwukdjrotb, Ur; 991050-Kmlqtmsclmrk, Ur;537210-UFT, Urinewas developed and its performance characteristics determinedby [facility]. It has not been cleared or approved by the Foodand Drug Administration.PATIENT NOT FASTINGPERFORMED BY: [email or web address] [address] [id number] Information: START 09/30/21@9AM Norepinephrine (U) [Mass/Vol] 40 ug/L Normal [facility]; [facility] Work Phone: Comment on above: Test(s) 250545-Jyrzn phrine, Urine; 682370-Oolvdeufwtpmdb, Ur; 868930-Eftkcqus, Urine; 620879-Btpbxdsefrbrykf, Ur; 167647-Gsjdtzqqifdx, Ur;766066-GAV, Urinewas developed and its performance characteristics determinedby [facility]. It has not been cleared or approved by the Foodand Drug Administration.PATIENT NOT FASTINGPERFORMED BY: [email or web address] [address] [id number] Information: START 09/30/21@9AM METANEPHRINES - URINE (59414 )Ordered By: Lighting Fixture Installer on 09-30-2021 Metanephrine (24H U) [Mass/Time] 61 {ug/24_hr} Normal 36-209 [facility]; [facility] Work Phone: Comment on above: Test(s) 182532-Lorfn phrine, Urine; 906226-Whrjclgltccogv, Ur; 337397-Xwlkxrsk, Urine; 588917-Pqjejoannwuydao, Ur; 104761-Glkpxeogymys, Ur;755954-JOH, Urinewas developed and its performance characteristics determinedby [facility]. It has not been cleared or approved by the Foodand Drug Administration.PATIENT NOT FASTINGPERFORMED BY: [email or web address] [address] [id number] Metanephrines (24H U) [Mass/Vol] 47 ug/L Normal [facility]; [facility] Work Phone: Comment on above: Test(s) 165897-Ovxpw phrine, Urine; 888398-Teauzkwzqvsabj, Ur; 625913-Zkodwodz, Urine; 606489-Ykngutmvvxihuvs, Ur; 884512-Rwjtpwdmuclh, Ur;522237-MDD, Urinewas developed and its performance characteristics determinedby [facility]. It has not been cleared or approved by the Foodand Drug Administration.PATIENT NOT FASTINGPERFORMED BY: [email or web address] [address] [id number] Normetanephrine (24H U) [Mass/Time] 424 {ug/24_hr} Normal 131-612 [facility]; [facility] Work Phone: Comment on above: Test(s) 100470-Xdgtm phrine, Urine; 250185-Rzomyxeqwsqhrf, Ur; 767573-Orjcwdgw, Urine; 683177-Vocaxytxqkygucm, Ur; 022366-Zintojewvlad, Ur;420539-UVN, Urinewas developed and its performance characteristics determinedby [facility]. It has not been cleared or approved by the Foodand Drug Administration.PATIENT NOT FASTINGPERFORMED BY: [email or web address] [address] [id number] Normetanephrine (24H U) [Mass/Vol] 326 ug/L Normal [facility]; [facility] Work Phone: Comment on above: Test(s) 534735-Fddji phrine, Urine; 822581-Dnwmsvovpctini, Ur; 869841-Ephqwrbd, Urine; 879890-Rupafmpzyjfrdba, Ur; 873372-Sxkyideucesr, Ur;816413-GMX, Urinewas developed and its performance characteristics determinedby [facility]. It has not been cleared or approved by the Foodand Drug Administration.PATIENT NOT FASTINGPERFORMED BY: [email or web address] [address] [id number] URINE VMA (38370)Ordered By: Lighting Fixture Installer on 09-30-2021 Vanillylmandelate (24H U) [Mass/Time] 4.4 {mg/24_hr} Normal 0.0-7.5 [facility]; [facility] Work Phone: Comment on above: Test(s) 334087-Covcj phrine, Urine; 921973-Vnqlzrjmmvljhk, Ur; 723256-Aohayctv, Urine; 380190-Kypwspmqhshtbin, Ur; 160874-Zjgbnzksrpdl, Ur;094740-GET, Urinewas developed and its performance characteristics determinedby [facility]. It has not been cleared or approved by the Foodand Drug Administration.PATIENT NOT FASTINGPERFORMED BY: [email or web address] [address] [id number] Vanillylmandelate (U) [Mass/Vol] 3.4 mg/L Normal [facility]; [facility] Work Phone: Comment on above: Test(s) 658111-Sipcr phrine, Urine; 675732-Tiwnqutocqkbci, Ur; 466804-Nhgentdu, Urine; 392288-Wdaeqojjivdaakd, Ur; 449907-Fkmkxovgaagx, Ur;097253-QGA, Urinewas developed and its performance characteristics determinedby [employer]. It has not been cleared or approved by the Foodand Drug Administration.PATIENT NOT FASTINGPERFORMED BY: [place] 156637 [facility] [id number] Blood Glucose , Office (6025 2)Ordered By: Nelda Mallory on 09-26-2021 Glucose Glucometer (BldC) [Moles/Vol] 138 1 Normal [facility]; [facility] Work Phone: HgA1C , Office (19242)Ordere d By: Nelda Mallory on 09-26-2021 HbA1c (Bld) [Mass fraction] 6.0 % Normal 4.6 - 7.1 [facility]; [facility] Work Phone: CBC W/AUTO DIFF WBC (51717)O rdered By: Lighting Fixture Installer on 09-18-2021 Basophils (Bld) [#/Vol] 0.1 10*3/uL Normal 0.0-0.2 [facility]; [facility] Work Phone: Comment on above: PATIENT WAS FASTINGP ERFORMED BY: WinViewBayshore Community HospitalOyxafz3820 [place] SwapboxCape Fear Valley [facility] [id number] Basophils/100 WBC (Bld) 1 % Normal C omprehensive Internal Medicine; [facility] Work Phone: Comment on above: PATIENT WAS FASTINGP ERFORMED BY: WinViewBayshore Community HospitalTolizs8615 [place] Ziklag SystemsNorth Carolina Specialty Hospital [id number] Eosinophils (Bld) [#/Vol] 0.3 10*3/uL Normal 0.0-0.4 [facility]; [facility] Work Phone: Comment on above: PATIENT WAS FASTINGP ERFORMED BY: WinViewBayshore Community HospitalCztjln4335 HolguinSSM Rehab [id number] Eosinophils/100 WBC (Bld) 4 % Normal [facility]; [facility] Work Phone: Comment on above: PATIENT WAS FASTINGP ERFORMED BY: HALEIGH Polina [place]6370 [facility] [id number] Erythrocyte distribution width (RBC) [Ratio] 12.7 % Normal 11.7-15.4 Comprehensiv e Internal Medicine; [facility] Work Phone: Comment on above: PATIENT WAS FASTINGP ERFORMED BY: HALEIGH French Nroymb9314 [facility] [id number] Hematocrit (Bld) [Volume fraction] 40.4 % Normal 34.0-46.6 [facility]; [facility] Work Phone: Comment on above: PATIENT WAS FASTINGP ERFORMED BY: HALEIGH [facility] Rbnluq4454 [facility] [id number] Hemoglobin (Bld) [Mass/Vol] 13.5 g/dL Normal 11.1-15.9 [facility]; [facility] Work Phone: Comment on above: PATIENT WAS FASTINGP ERFORMED BY: HALEIGH French Twqoek4408 [facility] [id number] Immature granulocytes (Bld) [#/Vol] 0.0 10*3/uL Normal 0.0-0.1 [facility]; [facility] Work Phone: Comment on above: PATIENT WAS FASTINGP ERFORMED BY: HALEIGH French Zyrvmk6239 [facility] [id number] Immature granulocytes/100 WBC (Bld) 0 % Normal [facility]; [facility] Work Phone: Comment on above: PATIENT WAS FASTINGP ERFORMED BY: HALEIGH [facility] Vsfqge8408 [facility] [id number] Lymphocytes (Bld) [#/Vol] 2.8 10*3/uL Normal 0.7-3.1 [facility]; [facility] Work Phone: Comment on above: PATIENT WAS FASTINGP ERFORMED BY: [facility] [facility]in [place] [id number] Lymphocytes/100 WBC (Bld) 33 % Normal [facility]; [facility] Work Phone: Comment on above: PATIENT WAS FASTINGP ERFORMED BY: [facility] Tdvizi8[address] [facility] [id number] MCH (RBC) [Entitic mass] 30.0 pg Normal 26.6-33.0 [facility]; [facility] Work Phone: Comment on above: PATIENT WAS FASTINGP ERFORMED BY: [facility]6370 [facility] [place] [id number] MCHC (RBC) [Mass/Vol] 33.4 g/dL Normal 31.5-35.7 [facility] prehensive Internal Medicine; [facility] Work Phone: Comment on above: PATIENT WAS FASTINGP ERFORMED BY: [place] [id number] [facility] [id number] MCV (RBC) [Entitic vol] 90 fL Normal 79-97 C omprehensive Internal Medicine; [facility] Work Phone: Comment on above: PATIENT WAS FASTINGP ERFORMED BY: [facility]inO[facility]lawn Hospital6370 [facility] [id number] Monocytes (Bld) [#/Vol] 0.8 10*3/uL Normal 0.1-0.9 [facility]; [facility] Work Phone: Comment on above: PATIENT WAS FASTINGP ERFORMED BY: [facility]6370 [facility] [id number] Monocytes/100 WBC (Bld) 10 % Normal C omprehensive Internal Medicine; [facility] Work Phone: Comment on above: PATIENT WAS FASTINGP ERFORMED BY: [facility]6370 [facility] [id number] Neutrophils (Bld) [#/Vol] 4.5 10*3/uL Normal 1.4-7.0 [facility]; [facility] Work Phone: Comment on above: PATIENT WAS FASTINGP ERFORMED BY: HALEIGH [facility] Ejykng1161 [address]in RoadDublin [place] [id number] Neutrophils/100 WBC (Bld) 52 % Normal [facility]; [facility] Work Phone: Comment on above: PATIENT WAS FASTINGP ERFORMED BY: HALEIGH [facility] Mybrec3788 [address]in RoadDublin [place] [id number] Platelets (Bld) [#/Vol] 260 10*3/uL Normal 150-450 [facility]; [facility] Work Phone: Comment on above: PATIENT WAS FASTINGP ERFORMED BY: HALEIGH [facility] Jtmjsq8422 [address] RoadDublin [place] [id number] RBC (Bld) [#/Vol] 4.50 10*6/uL Normal 3.77-5.28 [facility]; [facility] Work Phone: Comment on above: PATIENT WAS FASTINGP ERFORMED BY: HALEIGH [facility] Qppcpv4184 [address] RoadDublin [place] [id number] WBC (Bld) [#/Vol] 8.5 10*3/uL Normal 3.4-10.8 [facility] Internal Medicine; [facility] Work Phone: Comment on above: PATIENT WAS FASTINGP ERFORMED BY: HALEIGH [facility] Aqeoxn0826 Holguin RoadDublin [place] [id number] LIPID PANEL (91109)Ordered B y: Lighting Fixture Installer on 09-18-2021 Cholesterol [Mass/Vol] 172 mg/dL Normal 100-199 [facility] Internal Medicine; [facility] Work Phone: Comment on above: PATIENT WAS FASTINGP ERFORMED BY: HALEIGH [facility] Mzauay6989 [address]gu[address] RoadDublin [place] [id number] Cholesterol in HDL [Mass/Vol] 50 mg/dL Normal [facility]; [facility] Work Phone: Comment on above: PATIENT WAS FASTINGP ERFORMED BY: HALEIGH [facility] Ciogog1707 [address] RoadDublin [place] [id number] Triglyceride [Mass/Vol] 167 mg/dL Abnormal 0-149 C omppremier healthensive Internal Medicine; [facility] Work Phone: Comment on above: PATIENT WAS FASTINGP ERFORMED BY: HALEIGH Labcoedgardo Wsfxwx4378 [address] [facility]in [place] [id number] LIPID PANEL (48172) 29 mg/dL Normal 5-40 [facility]; [facility] Work Phone: Comment on above: PATIENT WAS FASTINGP ERFORMED BY: HALEIGH [facility] Anljab0761 Holguin RoadQuorum Healthin [place] [id number] LIPID PANEL (55357) 93 mg/dL Normal 0-99 [facility]; [facility] Work Phone: Comment on above: PATIENT WAS FASTINGP ERFORMED BY: HALEIGH Labcoedgardo Xuvfgu6[address] [facility] [id number] LIPID PANEL (48073) 1.9 {ratio} Normal 0.0-3.2 [facility]; [facility] Work Phone: Comment on above: LDL/HDL Ratio Men Wo men 1/2 Avg.Risk 1.0 1.5 Avg.Risk 3.6 3.2 2X Avg.Risk 6.2 5.0 3X Avg.Risk 8.0 6.1 PATIENT WAS FASTINGP ERFORMED BY: HALEIGH Labcoedgardo Mpxpuj5976 [facility] [id number] METABOLIC PANEL, COMPREHENSI VE (31607)Ordered By: Lighting Fixture Installer on 09-18-2021 Albumin [Mass/Vol] 4.0 g/dL Normal 3.6-4.6 [facility] Internal Medicine; [facility] Work Phone: Comment on above: PATIENT WAS FASTINGP ERFORMED BY: HALEIGH [facility] Qkkvgg[address]51 [address] [facility] HospitalDublin [place] [id number] Albumin/Globulin [Mass ratio] 1.5 {ratio} Normal 1.2-2.2 [facility]; [facility] Work Phone: Comment on above: PATIENT WAS FASTINGP ERFORMED BY: HALEIGH [facility] Fvdbqd0597 [address] [facility] Systemblin [place] [id number] ALP [Catalytic activity/Vol] 65 U/L Normal 44-121 [facility]; [facility] Work Phone: Comment on above: PATIENT WAS FASTINGP ERFORMED BY: CB [facility] Nhiumj8670 [address] RoadDublin [place] [id number] ALT [Catalytic activity/Vol] 19 U/L Normal 0-32 [facility]; [facility] Work Phone: Comment on above: PATIENT WAS FASTINGP ERFORMED BY: CB [facility] Ngyzob8125 [address] RoadDublin [place] [id number] AST [Catalytic activity/Vol] 19 U/L Normal 0-40 [facility]; [facility] Work Phone: Comment on above: PATIENT WAS FASTINGP ERFORMED BY: CB [facility] Xcrmtr6880 [address] RoadDublin [place] [id number] Bilirubin [Mass/Vol] 1.0 mg/dL Normal 0.0-1.2 Comp rehensive Internal Medicine; [facility] Work Phone: Comment on above: PATIENT WAS FASTINGP ERFORMED BY: CB [facility] Irbxll7423 [address] RoadDublin [place] [id number] Calcium [Mass/Vol] 10.0 mg/dL Normal 8.7-10.3 [facility] Internal Medicine; [facility] Work Phone: Comment on above: PATIENT WAS FASTINGP ERFORMED BY: CB [facility] Rhffpj7494 [address] RoadDublin [place] [id number] Chloride [Moles/Vol] 104 mmol/L Normal 96-106 Comp [facility] Internal Medicine; [facility] Work Phone: Comment on above: PATIENT WAS FASTINGP ERFORMED BY: CB [facility] Iuqhmk3091 [address] RoadDublin [place] [id number] CO2 [Moles/Vol] 23 mmol/L Normal 20-29 [facility] Internal Medicine; [facility] Work Phone: Comment on above: PATIENT WAS FASTINGP ERFORMED BY: CB [facility] Tgnspn5131 [address] RoadDublin [place] [id number] Creatinine [Mass/Vol] 1.23 mg/dL Abnormal 0.57-1.00 [facility] prehensive Internal Medicine; [facility] Work Phone: Comment on above: PATIENT WAS FASTINGP ERFORMED BY: HALEIGH [place] Segziz3687 [facility] [id number] GFR/1.73 sq M.predicted among non-blacks MDRD (S/P/Bld) [Vol rate/Area] 43 mL/min/{1.73_m2} Abnormal Comprehensiv e Internal Medicine; [facility] Work Phone: Comment on above: In accordance with recommendations from the NKF-ASN Task force, [facility] has updated its eGFR calculation to the 2020 CKD-EPI creatinine equation that estimates kidney function without a race variable. PATIENT WAS FASTINGP ERFORMED BY: French Enwjxn8671 [facility] [id number] Globulin (S) [Mass/Vol] 2.7 g/dL Normal 1.5-4.5 [facility]rehens[facility]; [facility] Work Phone: Comment on above: PATIENT WAS FASTINGP ERFORMED BY: [facility] Javbyi8090 [facility] [id number] Glucose [Mass/Vol] 118 mg/dL Abnormal 65-99 [facility]; [facility] Work Phone: Comment on above: PATIENT WAS FASTINGP ERFORMED BY: [facility]inO[facility]lawn Hospital6370 [facility] [id number] Potassium [Moles/Vol] 4.9 mmol/L Normal 3.5-5.2 [facility] prehensive Internal Medicine; [facility] Work Phone: Comment on above: PATIENT WAS FASTINGP ERFORMED BY: DarrinJesse [place] [id number] [facility] [id number] Protein [Mass/Vol] 6.7 g/dL Normal 6.0-8.5 [facility] Internal Medicine; [facility] Work Phone: Comment on above: PATIENT WAS FASTINGP ERFORMED BY: [place] [id number] [address] RoadDublin [place] [id number] Sodium [Moles/Vol] 140 mmol/L Normal 134-144 [facility] Internal Medicine; [facility] Work Phone: Comment on above: PATIENT WAS FASTINGP ERFORMED BY: [facility] Nzfhpj8206 [address] RoadDublin [place] [id number] Urea nitrogen [Mass/Vol] 24 mg/dL Normal 8-27 [facility]; [facility] Work Phone: Comment on above: PATIENT WAS FASTINGP ERFORMED BY: CB [facility] Wzvmwd7126 [address] RoadDublin [place] [id number] Urea nitrogen/Creatinine [Mass ratio] 20 mg/mg Normal 12- [facility]; [facility] Work Phone: Comment on above: PATIENT WAS FASTINGP ERFORMED BY: [facility] Zagxvc5336 [address] RoadDublin [place] [id number] MICROALBUMINOrdered By: Geniuzz em Cutting Department Supervisor on 09-18-2021 Albumin DL <= 20 mg/L (U) [Mass/Vol] 32.8 ug/mL Normal [facility]; [facility] Work Phone: Comment on above: PATIENT WAS FASTINGP ERFORMED BY: [facility] Updfyz3750 [address] RoadDublin [place] [id number] Albumin/Creatinine (U) [Mass ratio] 38 {mg/g_creat} Abnormal 0-29 [facility]; [facility] Work Phone: Comment on above: Normal: 0 - 29 Moder ately increased: 30 - 300 Severely increased: >300 PATIENT WAS FASTINGP ERFORMED BY: [facility] Qfowjk5091 [address] RoadDublin [place] [id number] Creatinine (U) [Mass/Vol] 85.8 mg/dL Normal [facility]; [facility] Work Phone: Comment on above: PATIENT WAS FASTINGP ERFORMED BY: [facility] Pnqpre3582 [address] RoadDublin [place] [id number] TSH ([id number])Ordered By: Geniuzze m Cutting Department Supervisor on 09-18-2021 TSH Qn 2.450 {uIU/mL} Normal 0.450-4.50 0 [facility]; [facility] Work Phone: Comment on above: PATIENT WAS FASTINGP ERFORMED BY: HALEIGH Polina Dallas[address]Dublin [place] [id number] URINALYSIS, W/ MICRO ([id number]) Ordered By: Lighting Fixture Installer on 09-18-2021 Appearance (U) Cloudy Abnormal Comprehens melisa [facility]; [facility] Work Phone: Comment on above: PATIENT WAS FASTINGP ERFORMED BY: HALEIGH Labchu WarrenBuzgae0682 [address] RoadDublin [place] [id number] Bilirubin Ql (U) Negative Normal Comprehe nsive Internal Medicine; [facility] Work Phone: Comment on above: PATIENT WAS FASTINGP ERFORMED BY: HALEIGH Labchu WarrenHmilxj0764 [address]guin RoadDublin [place] [id number] Color (U) Yellow Normal [facility]; [facility] Work Phone: Comment on above: PATIENT WAS FASTINGP ERFORMED BY: HALEIGH Labchu WarrenYhltiq2085 [address] RoadDublin [place] [id number] Glucose Ql (U) Negative Normal Comprehens melisa [facility]; [facility] Work Phone: Comment on above: PATIENT WAS FASTINGP ERFORMED BY: HALEIGH Labcoedgardo WarrenQgdjlb5228 [address]guin RoadDublin [place] [id number] Hemoglobin Ql (U) Negative Normal Compreh ensive Internal Medicine; [facility] Work Phone: Comment on above: PATIENT WAS FASTINGP ERFORMED BY: HALEGIH Labcoedgardo Weyvxy27[address] RoadDublin [place] [id number] Ketones Ql (U) Negative Normal Comprehens melisa [facility]; [facility] Work Phone: Comment on above: PATIENT WAS FASTINGP ERFORMED BY: HALEIGH [facility] Jpweil5364 [address] RoadDublin [place] [id number] Leukocyte esterase Test strip Ql (U) 1+ Abnormal [facility]; [facility] Work Phone: Comment on above: PATIENT WAS FASTINGP ERFORMED BY: HALEIGH Polina Dallas6370 [facility] [id number] Microscopic observation LM Nom (Urine sed) See below: Normal [facility]; [facility] Work Phone: Comment on above: Microscopic was berry cated and was performed. PATIENT WAS FASTINGP ERFORMED BY: HALEIGH French Zsvyud8492 [facility] [id number] Nitrite Ql (U) Negative Normal Comprehens melisa [facility]; [facility] Work Phone: Comment on above: PATIENT WAS FASTINGP ERFORMED BY: HALEIGH [facility] Qeympo2401 [facility] [id number] pH (U) 6.5 [pH] Normal 5.0-7.5 [facility]; [facility] Work Phone: Comment on above: PATIENT WAS FASTINGP ERFORMED BY: HALEIGH French Svrxpl5274 [facility] [id number] Protein Ql (U) Negative Normal Comprehens melisa [facility]; [facility] Work Phone: Comment on above: PATIENT WAS FASTINGP ERFORMED BY: HALEIGH French Vwjjjt2899 [facility] [id number] Specific gravity (U) [Rel density] 1.018 1 Normal 1.005-1.03 0 [facility]; [facility] Work Phone: Comment on above: PATIENT WAS FASTINGP ERFORMED BY: [facility] Iilxsa1324 [facility] [id number] Urobilinogen (U) [Mass/Vol] 0.2 mg/dL Normal 0.2-1.0 [facility]; [facility] Work Phone: Comment on above: PATIENT WAS FASTINGP ERFORMED BY: HALEIGH Cliffordeastern [facility] Okbqxw9490 [facility] [id number] Absolute lymphocyte counton 08-10-2021 Lymphocytes Auto (Unsp spec) [#/Vol] 3.17 10*3/uL 0.83-4.51 [facility] Work Phone: Basophil percentageon 2021 Basophil percentage 5-10 SEEN /hpf [facility] Work Phone: Basophils/100 WBC (Bld) 0.7 % 0-[address] [facility] Work Phone: Bilirubin [Mass/Vol] 1.00 mg/dL 0.20-1.00 [facility] Work Phone: Comment on above: For patients on eltr ombopag therapy, use of Dimension Onward TBIL is not recommended. Chloride [Moles/Vol] 110 mmol/L 98-107 [facility] Work Phone: Eosinophils/100 WBC (Bld) 3.3 % 0-5 [facility] Work Phone: Glucose [Mass/Vol] 99 mg/dL 74-106 [facility] Work Phone: Neutrophils (Bld) [#/Vol] 5.2 10*3/uL 2.0-7.7 [facility] Work Phone: Neutrophils/100 WBC (Bld) 53.5 % 47-70 [facility] Work Phone: Potassium [Moles/Vol] 4.2 mmol/L 3.5-5.1 [facility] Work Phone: Protein [Mass/Vol] 7.1 g/dL 6.4-8.2 [facility] Work Phone: Sodium [Moles/Vol] 142 mmol/L 136-145 [facility] Work Phone: WBC (Bld) [#/Vol] 9.7 10*3/uL 4.4-11.0 [facility] Work Phone: Bilirubin Test strip Ql (U)o n 08-10-2021 Bilirubin Ql (U) Negative Negative [facility] Work Phone: Blood erythrocytes count (nu mber/volume)on 08-10-2021 RBC (Bld) [#/Vol] 4.19 10*6/uL 4.2-5.4 [facility] Work Phone: Blood hemoglobin measurement (mass/volume)on 08-10-2021 Hemoglobin (Bld) [Mass/Vol] 13.0 g/dL 12.0-15.0 [facility] Work Phone: Blood lymphocytes/100 leukoc yteson 08-10-2021 Lymphocytes/100 WBC (Bld) 32.6 % 19-41 [facility] Work Phone: Blood monocytes/100 leukocyt eson 08-10-2021 Monocytes/100 WBC (Bld) 9.6 % 0-[address] [facility] Work Phone: Blood platelet mean volumeon 08-10-2021 Platelet mean volume (Bld) [Entitic vol] 10.5 fL 6.2-12.0 [facility] Work Phone: Determination of erythrocyte mean corpuscular volume (MCV)on 08-10-2021 MCV (RBC) [Entitic vol] 93.6 fL 81-[address] [facility] Work Phone: Hematocrit Auto (Bld) [Volum e fraction]on 08-10-2021 Hematocrit (Bld) [Volume fraction] 39.2 % 37-47 [facility] Work Phone: Ketones Test strip Ql (U)on 08-10-2021 Ketones Ql (U) Negative Negative [facility] Work Phone: Laboratory - Chemistry and C hemistry - challengeon 08-10-2021 ALP [Catalytic activity/Vol] 59 U/L 45-117 [facility] Work Phone: ALT [Catalytic activity/Vol] 29 U/L 13-56 [facility] Work Phone: CO2 [Moles/Vol] 29.0 mmol/L 21.0-32.0 [facility] Work Phone: Globulin (S) [Mass/Vol] 3.9 g/dL 2.2-4.[address] [facility] Work Phone: Urea nitrogen/Creatinine [Mass ratio] 29.2 mg/mg 10-20 [facility] Work Phone: Laboratory - Hematology and Cell countson 08-10-2021 Erythrocyte distribution width (RBC) [Entitic vol] 45.9 fL 35.1-43.9 [facility] Work Phone: Erythrocyte distribution width (RBC) [Ratio] 13.5 % 11.6-14.6 [facility] Work Phone: Immature granulocytes/100 WBC (Bld) 0.300 % 0.0-0.9 [facility] Work Phone: Comment on above: IG% - Immature Granu locytes (promyelocytes, myelocytes and metamyelocytes) > 1% indicates that a LEFT SHIFT is Present. MCH (RBC) [Entitic mass] 31.0 pg 27.0-32.0 [facility] Work Phone: Nucleated RBC/100 WBC (Bld) [Ratio] 0 % 0-5 [facility] Work Phone: MCHC Auto (RBC) [Mass/Vol]on 08-10-2021 MCHC (RBC) [Mass/Vol] 33.2 g/dL 32-36 [facility] Work Phone: Mucus LM Ql (Urine sed)on Mucus Ql (Urine sed) 0 SEEN /hpf [facility] Work Phone: Nitrite Test strip Ql (U)on 08-10-2021 Nitrite Ql (U) Negative Negative [facility] Work Phone: No Panel Informationon 08-10 Estimated GFR (MDRD) Amer 50 mL/min >60 [facility] Work Phone: Comment on above: GFR Calc Estimated GFR (MDRD) Non-Af Amer 41 mL/min >60 [facility] Work Phone: Comment on above: Non- GFR Calc Troponin I High Sensitivity 11 pg/mL 3.0-54.0 [facility] Work Phone: Comment on above: Please Note: New Sue t Units and Gender Specific Reference Ranges. For more information see Policy Stat Procedure Onward High Sensitivity Troponin (TNIH) and attachments. Platelets bldon 08-10-2021 Platelets (Bld) [#/Vol] 250 10*3/uL 150-450 [facility] Work Phone: Protein Test strip Ql (U)on 08-10-2021 Protein Ql (U) Negative Negative [facility] Work Phone: Serum or plasma albumin brian urement (mass/volume)on 08-10-2021 Albumin [Mass/Vol] 3.2 g/dL 3.2-5.0 [facility] Work Phone: Serum or plasma albumin/glob ulin mass ratioon 08-10-2021 Albumin/Globulin [Mass ratio] 0.8 {ratio} 0.9-2.4 [facility] Work Phone: Serum or plasma calcium brian urement (mass/volume)on 08-10-2021 Calcium [Mass/Vol] 10.1 mg/dL 8.5-10.1 [facility] Work Phone: Serum or plasma creatinine m easurement (mass/volume)on 08-10-2021 Creatinine [Mass/Vol] 1.30 mg/dL 0.55-1.02 [facility] Work Phone: Comment on above: The validity of the calculated GFR & GFRAA in patients over 70 years has not been determined. Clinical correlation is essential. Serum or plasma urea nitroge n measurement (mass/volume)on 08-10-2021 Urea nitrogen [Mass/Vol] 38 mg/dL 7-18 [facility] Work Phone: Squamous epithelial cells de tection in urine sediment by light microscopyon 08-10-2021 Epithelial cells.squamous LM Ql (Urine sed) 5-10 SEEN /hpf [facility] Work Phone: Thin prep Papanicolaou smear with manual screeningon 08-10-2021 Thin prep Papanicolaou smear with manual screening 13 U/L 15-37 [facility] Work Phone: Thin prep Papanicolaou smear with manual screening 3 5-15 [facility] Work Phone: Urine blood detectionon - RBC Ql (U) Negative Negative [facility] Work Phone: RBC Ql (U) 0 SEEN /hpf [facility] Work Phone: Urine clarityon 08-10-2021 Clarity (U) Clear Clear [facility] Work Phone: Urine color determinationon 08-10-2021 Color (U) Yellow Yellow [facility] Work Phone: Urine glucose detectionon Glucose Ql (U) Normal mg/dl Normal [facility] Work Phone: Urine leukocyte esterase det ection by dipstickon 08-10-2021 Leukocyte esterase Test strip Ql (U) 25 /ul Negative [facility] Work Phone: Urine pHon 08-10-2021 pH (U) 6.0 [pH] [facility] Work Phone: Urine sediment bacteria coun t by microscopy (number/high power field)on 08-10-2021 Bacteria LM.HPF (Urine sed) [#/Area] 0 /[HPF] None Seen [facility] Work Phone: Urine specific gravity measu rementon 08-10-2021 Specific gravity (U) [Rel density] 1.020 [facility] Work Phone: Urobilinogen Auto test strip Ql (U)on 08-10-2021 Urobilinogen Ql (U) Normal mg/dl Normal [facility] Work Phone: OBSOLETEon 06-04-2021 OBSOLETE Refill (FAMPWS) DEBBIE MIRELES ([id number]) 1935 F Date Time Provider Department 06/04/21 PHILIP KUMAR During your visit today, we recorded the following information about you: Emi Sheltonbauer 06/04/2021 12:39 PM Addendum Patient has been [...] PM Signed Due for follow up Shannon Chakraborty 06/07/2021 4:20 PM Signed 1st attempt. Message left for patient to contact office to schedule follow up with PCP/SECTION CHIEF. Shannon Chakraborty 06/08/2021 10:04 AM Signed Patient called stating [...] PRESCRIPTION Artery Cleanse - COMPOUNDED PRESCRIPTION Cardio [place] Healthy heart/arteries - OMEGA 0-LPI-KVQ-OTHER OM3-D3 ORAL Take by mouth. - aspirin, [...] by PUSHPA PRICE LPN on 06/08/21 Normal [facility] LIPID PANEL ([id number])Ordered B y: Lighting Fixture Installer on 05-18-2021 Cholesterol [Mass/Vol] 143 mg/dL Normal 100-199 Co mprehensive [facility]; [facility] Work Phone: Comment on above: PATIENT WAS FASTINGP ERFORMED BY: HALEIGH reKode EducationCoPawSpotFnwwpt7186 [facility] [id number] Cholesterol in HDL [Mass/Vol] 48 mg/dL Normal [facility]; [facility] Work Phone: Comment on above: PATIENT WAS FASTINGP ERFORMED BY: [employer] LabFired Up Christian Wearrp Fmvlnh4089 [facility] [id number] Triglyceride [Mass/Vol] 126 mg/dL Normal 0-149 C omprehensive Internal Medicine; [facility] Work Phone: Comment on above: PATIENT WAS FASTINGP ERFORMED BY: HALEIGH LabChu WarrenSnbriv[address] [facility] [place] [id number] LIPID PANEL (73772) 22 mg/dL Normal 5-40 [facility]; [facility] Work Phone: Comment on above: PATIENT WAS FASTINGP ERFORMED BY: HALEIGH LabCoedgardo WarrenEouqse[address] [facility] [id number] LIPID PANEL (10708) 73 mg/dL Normal 0-99 [facility]; [facility] Work Phone: Comment on above: PATIENT WAS FASTINGP ERFORMED BY: HALEIGH Warrenlin[address] [facility] [id number] LIPID PANEL ([id number]) 1.5 {ratio} Normal 0.0-3.2 [facility]; [facility] Work Phone: Comment on above: LDL/HDL Ratio Men Wo men 1/2 Avg.Risk 1.0 1.5 Avg.Risk 3.6 3.2 2X Avg.Risk 6.2 5.0 3X Avg.Risk 8.0 6.1 PATIENT WAS FASTINGP ERFORMED BY: HALEIGH Warrenlin6370 [facility] [id number] Metabolic Panel, Comprehensi ve ([id number])Ordered By: Lighting Fixture Installer on 05-18-2021 Albumin [Mass/Vol] 4.1 g/dL Normal 3.6-4.6 [facility]; [facility] Work Phone: Comment on above: PATIENT WAS FASTINGP ERFORMED BY: HALEIGH LabCoedgardo Ktfovl[address] [facility] [place] [id number] Albumin/Globulin [Mass ratio] 1.8 {ratio} Normal 1.2-2.2 [facility]; [facility] Work Phone: Comment on above: PATIENT WAS FASTINGP ERFORMED BY: HALEIGH LabChu WarrenTpdyvy[address] [facility] [id number] ALP [Catalytic activity/Vol] 67 U/L Normal 44-121 [facility]; [facility] Work Phone: Comment on above: Please note refere nce interval change PATIENT WAS FASTINGP ERFORMED BY: CB [facility] Wbjlxx6745 [address] RoadDublin [place] [id number] ALT [Catalytic activity/Vol] 15 U/L Normal 0-32 [facility]; [facility] Work Phone: Comment on above: PATIENT WAS FASTINGP ERFORMED BY: CB [facility] Nipbsx4058 [address] RoadDublin [place] [id number] AST [Catalytic activity/Vol] 16 U/L Normal 0-40 [facility]; [facility] Work Phone: Comment on above: PATIENT WAS FASTINGP ERFORMED BY: CB [facility] Dcrvnm9588 [address] RoadDublin [place] [id number] Bilirubin [Mass/Vol] 1.0 mg/dL Normal 0.0-1.2 Comp rehensive Internal Medicine; [facility] Work Phone: Comment on above: PATIENT WAS FASTINGP ERFORMED BY: CB [facility] Dslmcs0235 [address] RoadDublin [place] [id number] Calcium [Mass/Vol] 9.8 mg/dL Normal 8.7-10.3 [facility]; [facility] Work Phone: Comment on above: PATIENT WAS FASTINGP ERFORMED BY: CB [facility] Chpagd6326 [address] RoadDublin [place] [id number] Chloride [Moles/Vol] 103 mmol/L Normal 96-106 Comp rehensive Internal Medicine; [facility] Work Phone: Comment on above: PATIENT WAS FASTINGP ERFORMED BY: CB [facility] Eqmtiy5655 [address] RoadDublin [place] [id number] CO2 [Moles/Vol] 23 mmol/L Normal 20-29 [facility]; [facility] Work Phone: Comment on above: PATIENT WAS FASTINGP ERFORMED BY: CB [facility] Xgpsli9504 [address] RoadDublin [place] [id number] Creatinine [Mass/Vol] 1.15 mg/dL Abnormal 0.57-1.00 [facility] prehensive Internal Medicine; [facility] Work Phone: Comment on above: PATIENT WAS FASTINGP ERFORMED BY: HALEIGH Dallas6[address] [facility] HospitalAnjelNorth [facility] [id number] GFR/1.73 sq M.predicted among blacks CKD-EPI (S/P/Bld) [Vol rate/Area] 50 mL/min/1.73 Abnormal [facility]; [facility] Work Phone: Comment on above: In accordance with recommendations from the NKF-ASN Task force, [facility] is in the process of updating its eGFR calculation to the 2020 CKD-EPI creatinine equation that estimates kidney function without a race variable. PATIENT WAS FASTINGP ERFORMED BY: HALEIGH Dallas6[address] [facility] [id number] GFR/1.73 sq M.predicted among non-blacks CKD-EPI (S/P/Bld) [Vol rate/Area] 44 mL/min/1.73 Abnormal [facility]; [facility] Work Phone: Comment on above: PATIENT WAS FASTINGP ERFORMED BY: HALEIGH Dallas6[address] [id number] Globulin (S) [Mass/Vol] 2.3 g/dL Normal 1.5-4.5 [facility]; [facility] Work Phone: Comment on above: PATIENT WAS FASTINGP ERFORMED BY: HALEIGH Dallas6370 [facility] [id number] Glucose [Mass/Vol] 103 mg/dL Abnormal 65-99 [facility]; [facility] Work Phone: Comment on above: PATIENT WAS FASTINGP ERFORMED BY: HALEIGH Warrenlin6370 [facility] [id number] Potassium [Moles/Vol] 4.8 mmol/L Normal 3.5-5.2 [facility] prehensive Internal Medicine; [facility] Work Phone: Comment on above: PATIENT WAS FASTINGP ERFORMED BY: CB [facility] Keqywd5569 [address] RoadDublin [place] [id number] Protein [Mass/Vol] 6.4 g/dL Normal 6.0-8.5 [facility]; [facility] Work Phone: Comment on above: PATIENT WAS FASTINGP ERFORMED BY: CB [facility] Nzuxnr0339 [address] RoadDublin [place] [id number] Sodium [Moles/Vol] 140 mmol/L Normal 134-144 [facility]; [facility] Work Phone: Comment on above: PATIENT WAS FASTINGP ERFORMED BY: CB [facility] Ncvlbr2279 [address] RoadDublin [place] [id number] Urea nitrogen [Mass/Vol] 21 mg/dL Normal 8-27 [facility]; [facility] Work Phone: Comment on above: PATIENT WAS FASTINGP ERFORMED BY: CB [facility] Qiklpc8360 [address] RoadDublin [place] [id number] Urea nitrogen/Creatinine [Mass ratio] 18 mg/mg Normal 12-28 [facility]; [facility] Work Phone: Comment on above: PATIENT WAS FASTINGP ERFORMED BY: CB [facility] Dicuhk4907 Holgu[address] Roadblin [place] [id number] Blood Glucose , Office ([phone])Ordered By: Steffany Oh on 03-20-2021 Glucose Glucometer (BldC) [Moles/Vol] 103 1 Normal [facility]; [facility] Work Phone: HgA1C , Office ([phone])Ordere d By: Steffany Oh on 03-20-2021 HbA1c (Bld) [Mass fraction] 5.5 % Normal 4.6 - 7.1 [facility]; [facility] Work Phone: Blood Glucose , Office ([phone])Ordered By: Turner Balderas on 12-13-2020 Glucose Glucometer (BldC) [Moles/Vol] 113 1 Normal [facility]; [facility] Work Phone: HgA1C , Office ([phone])Ordere d By: Turner Balderas on 12-13-2020 HbA1c (Bld) [Mass fraction] 5.8 % Normal 4.6 - 7.1 [facility]; [facility] Work Phone: LIPID PANEL ([id number])Ordered B y: Lighting Fixture Installer on 12-05-2020 Cholesterol [Mass/Vol] 228 mg/dL Abnormal 100-199 Co [facility]; [facility] Work Phone: Comment on above: PATIENT WAS FASTINGP ERFORMED BY: CB [facility] Ektyvo0176 [address] RoadDublin [place] [id number] Cholesterol in HDL [Mass/Vol] 45 mg/dL Normal [facility]; [facility] Work Phone: Comment on above: PATIENT WAS FASTINGP ERFORMED BY: CB [facility] Njaois0238 [address] RoadDublin [place] [id number] Triglyceride [Mass/Vol] 193 mg/dL Abnormal 0-149 [facility]ensive [facility]; [facility] Work Phone: Comment on above: PATIENT WAS FASTINGP ERFORMED BY: CB [facility] Fztvhm0607 [address] RoadDublin [place] [id number] LIPID PANEL ([id number]) 35 mg/dL Normal 5-40 Compr ensive Internal Medicine; [facility] Work Phone: Comment on above: PATIENT WAS FASTINGP ERFORMED BY: CB [facility] Uaqpyn6104 [address] RoadDublin [place] [id number] LIPID PANEL (56557) 148 mg/dL Abnormal 0-99 Compr ensive Internal Medicine; [facility] Work Phone: Comment on above: PATIENT WAS FASTINGP ERFORMED BY: CB [facility] Ypyxyz9510 [address] RoadDublin [place] [id number] LIPID PANEL (41377) 3.3 {ratio} Abnormal 0.0-3.2 Comp [facility] healthensive Internal Medicine; [facility] Work Phone: Comment on above: LDL/HDL Ratio Men Wo men 1/2 Avg.Risk 1.0 1.5 Avg.Risk 3.6 3.2 2X Avg.Risk 6.2 5.0 3X Avg.Risk 8.0 6.1 PATIENT WAS FASTINGP ERFORMED BY: HALEIGH [facility] Vqunfs2126 [facility] [id number] RENAL FUNCTION PANEL (60317) Ordered By: Lighting Fixture Installer on 12-05-2020 Albumin [Mass/Vol] 4.1 g/dL Normal 3.6-4.6 [facility]; [facility] Work Phone: Comment on above: PATIENT WAS FASTINGP ERFORMED BY: [facility]6370 [facility] [id number] Calcium [Mass/Vol] 10.0 mg/dL Normal 8.7-10.3 [facility]; [facility] Work Phone: Comment on above: PATIENT WAS FASTINGP ERFORMED BY: HALEIGH [facility] Bathnx0719 [facility] [id number] Chloride [Moles/Vol] 105 mmol/L Normal 96-106 [facility]; [facility] Work Phone: Comment on above: PATIENT WAS FASTINGP ERFORMED BY: [facility] Qxdjkm4749 [facility] [id number] CO2 [Moles/Vol] 24 mmol/L Normal 20-29 [facility] Internal [facility]; [facility] Work Phone: Comment on above: PATIENT WAS FASTINGP ERFORMED BY: [facility] Okhxno0826 [facility] [id number] Creatinine [Mass/Vol] 1.21 mg/dL Abnormal 0.57-1.00 [facility]; [facility] Work Phone: Comment on above: PATIENT WAS FASTINGP ERFORMED BY: [facility] Fyzgym0916 [facility] [id number] GFR/1.73 sq M.predicted among blacks CKD-EPI (S/P/Bld) [Vol rate/Area] 47 mL/min/1.73 Abnormal [facility]; [facility] Work Phone: Comment on above: [facility] currently reports eGFR in compliance with the current recommendations of the National Kidney Foundation. [facility] will update reporting as new guidelines are published from the NKF-ASN Task force. PATIENT WAS FASTINGP ERFORMED BY: [facility]6370 [facility] [id number] GFR/1.73 sq M.predicted among non-blacks CKD-EPI (S/P/Bld) [Vol rate/Area] 41 mL/min/1.73 Abnormal [facility]; [facility] Work Phone: Comment on above: PATIENT WAS FASTINGP ERFORMED BY: [facility]6370 [facility] [id number] Glucose [Mass/Vol] 113 mg/dL Abnormal 65-99 [facility] Internal Medicine; [facility] Work Phone: Comment on above: PATIENT WAS FASTINGP ERFORMED BY: [facility]6370 [facility] [id number] Phosphate [Mass/Vol] 2.8 mg/dL Abnormal 3.0-4.3 [facility]; [facility] Work Phone: Comment on above: PATIENT WAS FASTINGP ERFORMED BY: [facility]6370 [facility] [id number] Potassium [Moles/Vol] 5.1 mmol/L Normal 3.5-5.2 [facility]; [facility] Work Phone: Comment on above: PATIENT WAS FASTINGP ERFORMED BY: [facility]6370 [facility] [id number] Sodium [Moles/Vol] 141 mmol/L Normal 134-144 [facility] Internal Medicine; [facility] Work Phone: Comment on above: PATIENT WAS FASTINGP ERFORMED BY: [facility]6370 [facility] [id number] Urea nitrogen [Mass/Vol] 21 mg/dL Normal 8-27 [facility]; [facility] Work Phone: Comment on above: PATIENT WAS FASTINGP ERFORMED BY: [facility]6370 [facility] [id number] Urea nitrogen/Creatinine [Mass ratio] 17 mg/mg Normal 12-28 [facility]; [facility] Work Phone: Comment on above: PATIENT WAS FASTINGP ERFORMED BY: [place] Qgdvbx7505 [facility] [id number] Blood Glucose , Office ([phone])Ordered By: Turner Balderas on 09-15-2020 Glucose Glucometer (BldC) [Moles/Vol] 163 1 Normal [facility]; [facility] Work Phone: CALCIFEDIOL ([phone])Ordered B y: Lighting Fixture Installer on 09-15-2020 25-Hydroxyvitamin D2+25-Hydroxyvitamin D3 [Mass/Vol] 60.2 ng/mL Normal 30.0-100.0 [facility]; [facility] Work Phone: Comment on above: Vitamin D deficiency has been defined by the [place] [facility] and an Endocrine Society practice guideline as alevel of serum 25-OH vitamin D less than 20 ng/mL (1,2).The Endocrine Society went on to further define vitamin Dinsufficiency as a level between 21 and 29 ng/mL (2).1. IOM ([place] of Medicine). 2010. Dietary reference intakes for calcium and D. [place]: The National Academies Press.2. [place] BA, [place] GARCIA, Bharathi GLOVER, et al. Evaluation, treatment, and prevention of vitamin D deficiency: an Endocrine Society clinical practice guideline. JCEM. 2010; 96(7):1911-30. PATIENT NOT FASTINGP ERFORMED BY: [place] Jyijyy6613 [facility] [id number] CBC, Platelets & Auto Diff ( [id number])Ordered By: Lighting Fixture Installer on 09-15-2020 Basophils (Bld) [#/Vol] 0.1 {x10E3/uL} Normal 0.0-0.2 [facility]; [facility] Work Phone: Comment on above: PATIENT NOT FASTINGP ERFORMED BY: [place] Dpgzcr0965 [facility] [id number] Basophils (Bld) [#/Vol] 0.1 10*3/uL Normal 0.0-0.2 [facility]; [facility] Work Phone: Comment on above: PATIENT NOT FASTINGP ERFORMED BY: HALEIGH [place] [facility] [place] [id number] Basophils/100 WBC (Bld) 1 % Normal C omprehensive Internal Medicine; [facility] Work Phone: Comment on above: PATIENT NOT FASTINGP ERFORMED BY: CB [facility] Rbslxz[address] [facility] [id number] Eosinophils (Bld) [#/Vol] 0.3 {x10E3/uL} Normal 0.0-0.4 [facility]; [facility] Work Phone: Comment on above: PATIENT NOT FASTINGP ERFORMED BY: HALEIGH [place]well Kzhdpt[address] [facility] [id number] Eosinophils (Bld) [#/Vol] 0.3 10*3/uL Normal 0.0-0.4 [facility]; [facility] Work Phone: Comment on above: PATIENT NOT FASTINGP ERFORMED BY: HALEIGH [place] [facility] [place] [id number] Eosinophils/100 WBC (Bld) 3 % Normal [facility]; [facility] Work Phone: Comment on above: PATIENT NOT FASTINGP ERFORMED BY: HALEIGH Warrenlin[address] [facility] [id number] Erythrocyte distribution width (RBC) [Ratio] 12.8 % Normal 11.7-15.4 Comprehensiv e Internal Medicine; [facility] Work Phone: Comment on above: PATIENT NOT FASTINGP ERFORMED BY: HALEIGH [facility] Wuvluu[address] [facility] [place] [id number] Hematocrit (Bld) [Volume fraction] 39.0 % Normal 34.0-46.6 [facility]; [facility] Work Phone: Comment on above: PATIENT NOT FASTINGP ERFORMED BY: CB [facility] Stymiu[address] [facility] [id number] Hemoglobin (Bld) [Mass/Vol] 13.5 g/dL Normal 11.1-15.9 [facility]; [facility] Work Phone: Comment on above: PATIENT NOT FASTINGP ERFORMED BY: HALEIGH [place] [facility] [id number] Immature granulocytes (Bld) [#/Vol] 0.0 {x10E3/uL} Normal 0.0-0.1 [facility]; [facility] Work Phone: Comment on above: PATIENT NOT FASTINGP ERFORMED BY: HALEIGH [place] [facility] [id number] Immature granulocytes (Bld) [#/Vol] 0.0 10*3/uL Normal 0.0-0.1 [facility]; [facility] Work Phone: Comment on above: PATIENT NOT FASTINGP ERFORMED BY: HALEIHG [place] [facility] [id number] Immature granulocytes/100 WBC (Bld) 0 % Normal [facility]; [facility] Work Phone: Comment on above: PATIENT NOT FASTINGP ERFORMED BY: HALEIGH [place] [facility] [id number] Lymphocytes (Bld) [#/Vol] 2.4 {x10E3/uL} Normal 0.7-3.1 [facility]; [facility] Work Phone: Comment on above: PATIENT NOT FASTINGP ERFORMED BY: HALEIGH LabCoedgardo WarrenTpbxjq3[address] [facility] [place] [id number] Lymphocytes (Bld) [#/Vol] 2.4 10*3/uL Normal 0.7-3.1 [facility]; [facility] Work Phone: Comment on above: PATIENT NOT FASTINGP ERFORMED BY: HALEIGH LabChu WarrenZmyfqm[address] [facility] [id number] Lymphocytes/100 WBC (Bld) 28 % Normal [facility]; [facility] Work Phone: Comment on above: PATIENT NOT FASTINGP ERFORMED BY: CB [facility] Cylzst9054 [address] RoadDublin [place] [id number] MCH (RBC) [Entitic mass] 31.3 pg Normal 26.6-33.0 [facility]; [facility] Work Phone: Comment on above: PATIENT NOT FASTINGP ERFORMED BY: CB [facility] Qbiequ0755 [address] RoadDublin [place] [id number] MCHC (RBC) [Mass/Vol] 34.6 g/dL Normal 31.5-35.7 [facility] prehensive Internal Medicine; [facility] Work Phone: Comment on above: PATIENT NOT FASTINGP ERFORMED BY: CB [facility] Kwqaml4871 [address] RoadDublin [place] [id number] MCV (RBC) [Entitic vol] 90 fL Normal 79-97 C omprehensive Internal Medicine; [facility] Work Phone: Comment on above: PATIENT NOT FASTINGP ERFORMED BY: CB [facility] Pfumbo8095 [address] RoadDublin [place] [id number] Monocytes (Bld) [#/Vol] 0.9 {x10E3/uL} Normal 0.1-0.9 [facility]; [facility] Work Phone: Comment on above: PATIENT NOT FASTINGP ERFORMED BY: CB [facility] Yoteor0446 [address] RoadDublin [place] [id number] Monocytes (Bld) [#/Vol] 0.9 10*3/uL Normal 0.1-0.9 [facility]; [facility] Work Phone: Comment on above: PATIENT NOT FASTINGP ERFORMED BY: CB [facility] Ywohcm1400 [address] RoadDublin [place] [id number] Monocytes/100 WBC (Bld) 10 % Normal C omprehensive Internal Medicine; [facility] Work Phone: Comment on above: PATIENT NOT FASTINGP ERFORMED BY: CB [facility] Zbkcpp4837 [address] RoadDublin [place] [id number] Neutrophils (Bld) [#/Vol] 5.0 {x10E3/uL} Normal 1.4-7.0 [facility]; [facility] Work Phone: Comment on above: PATIENT NOT FASTINGP ERFORMED BY: HALEIGH [place]ublin [place] [id number] Neutrophils (Bld) [#/Vol] 5.0 10*3/uL Normal 1.4-7.0 [facility]; [facility] Work Phone: Comment on above: PATIENT NOT FASTINGP ERFORMED BY: HALEIGH LabCoedgardo DallasGzrapn8125 [address] RoadDublin [place] [id number] Neutrophils/100 WBC (Bld) 58 % Normal [facility]; [facility] Work Phone: Comment on above: PATIENT NOT FASTINGP ERFORMED BY: HALEIGH [place]ublin [place] [id number] Platelets (Bld) [#/Vol] 240 {x10E3/uL} Normal 150-450 [facility]; [facility] Work Phone: Comment on above: PATIENT NOT FASTINGP ERFORMED BY: HALEIGH LabChu Dallas[address]ublin [place] [id number] Platelets (Bld) [#/Vol] 240 10*3/uL Normal 150-450 [facility]; [facility] Work Phone: Comment on above: PATIENT NOT FASTINGP ERFORMED BY: CB Lab[facility] [place] RoadDublin [place] [id number] RBC (Bld) [#/Vol] 4.32 {x10E6/uL} Normal 3.77-5.28 [facility] Internal Medicine; [facility] Work Phone: Comment on above: PATIENT NOT FASTINGP ERFORMED BY: HALEIGH LabCoedgardo WarrenXzsuya2448 [address] RoadDublin [place] [id number] RBC (Bld) [#/Vol] 4.32 10*6/uL Normal 3.77-5.28 [facility] Internal Medicine; [facility] Work Phone: Comment on above: PATIENT NOT FASTINGP ERFORMED BY: HALEIGH [facility] Ykqrdp3377 [address] RoadDublin [place] [id number] WBC (Bld) [#/Vol] 8.6 {x10E3/uL} Normal 3.4-10.8 [facility] Internal Medicine; [facility] Work Phone: Comment on above: PATIENT NOT FASTINGP ERFORMED BY: CB [facility] Thisly3396 [address] RoadDublin [place] [id number] WBC (Bld) [#/Vol] 8.6 10*3/uL Normal 3.4-10.8 [facility] Internal Medicine; [facility] Work Phone: Comment on above: PATIENT NOT FASTINGP ERFORMED BY: CB [facility] Uawxms8570 [address] Roadblin [place] [id number] HgA1C , Office ([id number])Ordere d By: Turner Balderas on 09-15-2020 HbA1c (Bld) [Mass fraction] 5.7 % Normal 4.6 - 7.1 [facility] Internal Medicine; [facility] Work Phone: Comment on above: 5.7 Metabolic Panel, Comprehensi ve ([id number])Ordered By: Lighting Fixture Installer on 09-15-2020 Albumin [Mass/Vol] 3.7 g/dL Normal 3.6-4.6 [facility] Internal Medicine; [facility] Work Phone: Comment on above: PATIENT NOT FASTINGP ERFORMED BY: CB [facility] Kwxueu[address] [facility] [place] [id number] Albumin/Globulin [Mass ratio] 1.4 {ratio} Normal 1.2-2.2 [facility] Internal Medicine; [facility] Work Phone: Comment on above: PATIENT NOT FASTINGP ERFORMED BY: CB [facility] Ixpeww0085 [address] RoadDublin [place] [id number] ALP [Catalytic activity/Vol] 71 [iU]/L Normal 39-117 [facility]; [facility] Work Phone: Comment on above: PATIENT NOT FASTINGP ERFORMED BY: CB [facility] Pwyshn8770 [address] RoadDublin [place] [id number] ALP [Catalytic activity/Vol] 71 U/L Normal 39-117 [facility]; [facility] Work Phone: Comment on above: PATIENT NOT FASTINGP ERFORMED BY: HALEIGH Warrenlin6370 [address] RoadDublin [place] [id number] ALT [Catalytic activity/Vol] 28 [iU]/L Normal 0-32 [facility]; [facility] Work Phone: Comment on above: PATIENT NOT FASTINGP ERFORMED BY: CB [facility] Eijpbd4600 [address] RoadDublin [place] [id number] ALT [Catalytic activity/Vol] 28 U/L Normal 0-32 [facility]; [facility] Work Phone: Comment on above: PATIENT NOT FASTINGP ERFORMED BY: HALEIGH Warrenlin6370 [address] RoadDublin [place] [id number] AST [Catalytic activity/Vol] 26 [iU]/L Normal 0-40 [facility]; [facility] Work Phone: Comment on above: PATIENT NOT FASTINGP ERFORMED BY: HALEIGH [facility] Tknbkn4167 [address] RoadDublin [place] [id number] AST [Catalytic activity/Vol] 26 U/L Normal 0-40 [facility]; [facility] Work Phone: Comment on above: PATIENT NOT FASTINGP ERFORMED BY: HALEIGH [facility] Ibveyf7781 [address] RoadDublin [place] [id number] Bilirubin [Mass/Vol] 0.9 mg/dL Normal 0.0-1.2 [facility]; [facility] Work Phone: Comment on above: PATIENT NOT FASTINGP ERFORMED BY: CB [facility] Frcnqf3011 [address] RoadDublin [place] [id number] Calcium [Mass/Vol] 9.5 mg/dL Normal 8.7-10.3 [facility] Internal Medicine; [facility] Work Phone: Comment on above: PATIENT NOT FASTINGP ERFORMED BY: CB [facility] Gxhslw0282 [address] RoadDublin [place] [id number] Chloride [Moles/Vol] 106 mmol/L Normal 96-106 Comp rehensive Internal Medicine; [facility] Work Phone: Comment on above: PATIENT NOT FASTINGP ERFORMED BY: CB [facility] Awqlkz1381 [address] RoadDublin [place] [id number] CO2 [Moles/Vol] 23 mmol/L Normal 20-[address] [facility] Internal [facility]; [facility] Work Phone: Comment on above: PATIENT NOT FASTINGP ERFORMED BY: CB [facility] Yfvhlm1357 [address] RoadDublin [place] [id number] Creatinine [Mass/Vol] 1.22 mg/dL Abnormal 0.57-1.00 [facility]; [facility] Work Phone: Comment on above: PATIENT NOT FASTINGP ERFORMED BY: CB [facility] Ybsdpb2951 [address] RoadDublin [place] [id number] GFR/1.73 sq M predicted among blacks CKD-EPI (S/P/Bld) [Vol rate/Area] 47 mL/min/1.73 Abnormal [facility]; [facility] Work Phone: Comment on above: PATIENT NOT FASTINGP ERFORMED BY: CB [facility] Omaeee0123 [address] RoadDublin [place] [id number] GFR/1.73 sq M predicted among non-blacks CKD-EPI (S/P/Bld) [Vol rate/Area] 41 mL/min/1.73 Abnormal [facility]; [facility] Work Phone: Comment on above: PATIENT NOT FASTINGP ERFORMED BY: CB [facility] Hzvzpg3375 [address]Dublin [place] [id number] Globulin (S) [Mass/Vol] 2.6 g/dL Normal 1.5-4.5 C omprehensive Internal Medicine; [facility] Work Phone: Comment on above: PATIENT NOT FASTINGP ERFORMED BY: CB [facility] Palqfs5092 [address] RoadDublin [place] [id number] Glucose [Mass/Vol] 105 mg/dL Abnormal 65-99 [facility]; [facility] Work Phone: Comment on above: PATIENT NOT FASTINGP ERFORMED BY: CB [facility] Tqobga0171 [address] RoadDublin [place] [id number] Potassium [Moles/Vol] 4.8 mmol/L Normal 3.5-5.2 [facility]; [facility] Work Phone: Comment on above: PATIENT NOT FASTINGP ERFORMED BY: CB [facility] Rsnikh6155 [address] RoadDublin [place] [id number] Protein [Mass/Vol] 6.3 g/dL Normal 6.0-8.5 [facility] Internal Medicine; [facility] Work Phone: Comment on above: PATIENT NOT FASTINGP ERFORMED BY: CB [facility] Qpodvj0490 [address] RoadDublin [place] [id number] Sodium [Moles/Vol] 142 mmol/L Normal 134-144 [facility] Internal Medicine; [facility] Work Phone: Comment on above: PATIENT NOT FASTINGP ERFORMED BY: CB [facility] Hmkgnv3093 [address] RoadDublin [place] [id number] Urea nitrogen [Mass/Vol] 26 mg/dL Normal 8-27 [facility]; [facility] Work Phone: Comment on above: PATIENT NOT FASTINGP ERFORMED BY: CB [facility] Jmgntd1779 [address] RoadDublin [place] [id number] Urea nitrogen/Creatinine [Mass ratio] 21 mg/mg Normal 12-28 [facility]; [facility] Work Phone: Comment on above: PATIENT NOT FASTINGP ERFORMED BY: CB [facility] Umzyuh0252 [address] RoadDublin [place] [id number] TSH ([id number])Ordered By: Marcelo Darnell on 09-15-2020 TSH Qn 2.220 {uIU/mL} Normal 0.450-4.50 0 [facility]; [facility] Work Phone: Comment on above: PATIENT NOT FASTINGP ERFORMED BY: CB [facility] Zarrfy6189 [address] RoadDublin [place] [id number] Maximilian 08-21-2020 [facility] Telephone (FAMPWS) DEBBIE MIRELES ([id number]) 1935 F Date Time Provider Department 08/21/20 PHILIP KUMAR FAMWS During your visit today, we recorded the following information about you: Mari Cason LPN 08/21/2020 5:20 PM Signed Daughter called in and wanted to let you know there is new updates that have come out on the medication Ivermectin and was wondering if you would be willing to look at website. This is being recommended for COIVD treatment. website: Phy[employer] Networksovid-19lim[facility] hospitalRock My World eaiance 3 doctors: Dr. John Paul Mendoza Also [...] Reason for Visit: Follow Up Phone Call [1808] Cmt: Daughter called Prescriptions as of 08/21/2020 [...] COMPOUNDED PRESCRIPTION Artery Cleanse COMPOUNDED PRESCRIPTION Cardio [place] Healthy heart* OMEGA 1-SQB-TOJ-OTHER OM3-D3 * Take by mouth. ASPIRIN 82 [...] Status:Closed by MARI CASON LPN on 08/22/20 [facility] ALLIED HEALTH 02-24-2019 [facility] HNO ID: [id number] Author: Natali Cannon (Tech) Service: Radiology Author Type: Pipe Smoking Machine Offbearer Type: Allied Health Filed: 02/24/2019 8:07 AM [...] DATE: February 24, 2019 TIME: 8:05 AM [facility] MRI 3D POST PROCESSINGon MRI 3D POST PROCESSING * * *Final Report * * * DATE OF EXAM: Feb 24 2019 8:34AM [facility] 0280 - MRI 3D POST PROCESSING / PROCEDURE REASON: K86.2-Pancreatic cyst * * * * Physician Interpretation * * * * MRI OF THE ABDOMEN WITHOUT AND WITH CONTRAST: CLINICAL HISTORY: Follow-up pancreatic cysts COMPARISON: 05/01/2017 MRI TECHNIQUE: Using the torso phased array coil, axial STIR, T1 weighted in- and [id number]-htmdt and axial and coronal HASTE images were [...] IMPRESSION: Tiny scattered pancreatic cysts are stable. Forging Press Setter Up: OSCAR Transcribe Date/Time: Feb 24 2019 12:37P Dictated by : OVIDIO RAMIREZ MD This examination was interpreted and the report reviewed and electronically signed by: OVIDIO RAMIREZ MD on Feb 24 2019 1:33PM EST [id number] N [facility] MRI PANC/ASHLYN WO/W IVCONon MRI PANC/ASHLYN WO/W IVCON * * *Final Repor t* * * DATE OF EXAM: Feb 24 2019 8:34AM [facility] 0730 - MRI PANC/ASHLYN WO/W IVCON / PROCEDURE REASON: K86.2-Pancreatic cyst * * * * Physician Interpretation * * * * MRI OF THE ABDOMEN WITHOUT AND WITH CONTRAST: CLINICAL HISTORY: Follow-up pancreatic cysts COMPARISON: 05/01/2017 MRI TECHNIQUE: Using the torso phased array coil, axial STIR, T1 weighted in- and ppg-pw-uuodx and axial and coronal HASTE images were [...] IMPRESSION: Tiny scattered pancreatic cysts are stable. 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 Type: Out Account: [id number] Location: Ordering: CELIO GAYLE Exam Date: 01/27/2018/16:19 Family Phys: PHILIP KUMAR Charge Code: [id number] Physician: [place] Order #: [id number] DLP Dose#: PROCEDURE: X-RAY FOOT RT COMPLETE [...] Mitchell MD on 01/27/2018 at 16:45 Normal [facility] Office Visit: terrell fung ison 05-09-2017 Fall risk assessment No Invalid Interpretation Code [facility] Work Phone: Protein mass conc Done Invalid Interpretation Code [facility] Work Phone: Tobacco smoking status NHIS Never smoker Invalid Interpretation Code [facility] Work Phone: Anaerobic culture Bacteria identified Anaer cx Nom (Unsp spec) No growth in 5 days. [facility] Work Phone: Bacteria identified Anaer cx Nom (Unsp spec) No anaerobic bacteria isolated. [facility] Work Phone: Bacteria identified Anaer cx Nom (Unsp spec) Anaerobic microbial culture No anaerobic bacteria isolated. [facility] Work Phone: Bacteria identified Cx Nom ( Wound) Wound Culture Pseudomonas aeroginosa [facility] Work Phone: COVID-19 virus antigen assay SARS-CoV-2 (COVID-19) Ag IA.rapid Ql (Resp) [facility] Work Phone: Culture, urine Bacteria identified Cx Nom (U) Mixed Gram Pos & Gram Neg Org [facility] Work Phone: Gram stain for investigation of transfusion reaction Microscopic observation Gram stain Nom (Unsp spec) [facility] Work Phone: Influenza virus A and B and SARS-CoV-2 (COVID-19) Ag panel - Upper respiratory specim SARS-CoV-2 (COVID-19) RNA KAYLIE+probe Ql (Resp) [facility] Work Phone: Laboratory - Microbiology an d Antimicrobial susceptibility Bacteria identified Cx Nom (Bld) No growth in [address] [facility] Work Phone: No Panel Information SARS-CoV-2 & FLU Antigen (Rapid) [facility] Work Phone: RSV Ag EIA RSV Ag Immune stain Ql (Tiss) [facility] Work Phone: Routine wound culture Bacteria identified Cx Nom (Wound) No growth aerobically. [facility] Work Phone: Vital Signs Date Time Vital Sign Value Performing Clinician Facility 01-01-2025 12:21-0400 Body temperature 98.2 [degF] Dr. Mratina Lal DO Work Phone: [facility] 01-01-2025 12:21-0400 Diastolic blood pressure 64 mm[Hg] Dr. Martina Lal DO Work Phone: [facility] 01-01-2025 12:21-0400 Heart rate 85 /min Dr. Martina Lal DO Work Phone: [facility] 01-01-2025 12:21-0400 Respiratory rate 17 /min Dr. Martina Lal DO Work Phone: [facility] 01-01-2025 12:21-0400 SaO2% (BldA) [Mass fraction] 96 % Dr. Martina Lal DO Work Phone: [facility] 01-01-2025 12:21-0400 Systolic blood pressure 144 mm[Hg] Dr. Martina Lal DO Work Phone: [facility] 12-24-2024 09:29-0400 Body height 157.[address] Martina Lal DO Work Phone: [facility] 12-16-2024 14:22-0400 Diastolic blood pressure 50 mm[Hg] Dr. Martina Lal DO Work Phone: [facility] 12-16-2024 14:22-0400 Systolic blood pressure 148 mm[Hg] Dr. Martina Lal DO Work Phone: [facility] 12-16-2024 09:36-0400 Body mass index (BMI) [Ratio] 41.1 kg/m2 Dr. Martina Lal DO Work Phone: [facility] 12-16-2024 09:36-0400 Body weight 102.[address] Martina Lal DO Work Phone: [facility] 12-16-2024 09:36-0400 Heart rate 73 /min Dr. Martina Lal DO Work Phone: [facility] 12-16-2024 09:36-0400 Respiratory rate 20 /min Dr. Martina Lal DO Work Phone: [facility] 12-16-2024 09:36-0400 SaO2% (BldA) [Mass fraction] 96 % Dr. Martina Lal DO Work Phone: [facility] 08-17-2024 12:53-0500 Body height 157.[address] Martina Lal DO Work Phone: [facility] 08-17-2024 12:53-0500 Body mass index (BMI) [Ratio] 40.6 kg/m2 Dr. Martina Lal DO Work Phone: [facility] 08-17-2024 12:53-0500 Body weight 100.[address] Martina Lal DO Work Phone: [facility] 08-17-2024 12:53-0500 Diastolic blood pressure 70 mm[Hg] Dr. Martina Lal DO Work Phone: [facility] 08-17-2024 12:53-0500 Heart rate 74 /min Dr. Martina Lal DO Work Phone: [facility] 08-17-2024 12:53-0500 Respiratory rate 18 /min Dr. Martina Lal DO Work Phone: [facility] 08-17-2024 12:53-0500 SaO2% (BldA) [Mass fraction] 96 % Dr. Martina Lal DO Work Phone: [facility] 08-17-2024 12:53-0500 Systolic blood pressure 148 mm[Hg] Dr. Martina Lal DO Work Phone: [facility] 08-09-2024 15:56-0500 Body temperature 97.8 [degF] Dr. Martina Lal DO Work Phone: [facility] 08-09-2024 15:56-0500 Body weight 102.[address] Martina Lal DO Work Phone: [facility] 08-09-2024 15:56-0500 Diastolic blood pressure 60 mm[Hg] Dr. Martina Lal DO Work Phone: [facility] 08-09-2024 15:56-0500 Heart rate 80 /min Dr. Martina Lal DO Work Phone: [facility] 08-09-2024 15:56-0500 Respiratory rate 16 /min Dr. Martina Lal DO Work Phone: [facility] 08-09-2024 15:56-0500 SaO2% (BldA) [Mass fraction] 92 % Dr. Martina Lal DO Work Phone: [facility] 08-09-2024 15:56-0500 Systolic blood pressure 144 mm[Hg] Dr. Martina Lal DO Work Phone: [facility] 10-16-2023 09:36-0400 Body height 154.[address] Martina Lal Work Phone: [facility] 10-16-2023 09:36-0400 Body mass index (BMI) [Ratio] 41.1 kg/m2 Dr. Martina Lal Work Phone: [facility] 10-16-2023 09:36-0400 Body weight 98.[address] Martina Lal Work Phone: [facility] 10-16-2023 09:36-0400 Diastolic blood pressure 66 mm[Hg] Dr. Martina Lal Work Phone: [facility] 10-16-2023 09:36-0400 Heart rate 53 /min Dr. Martina Lal Work Phone: [facility] 10-16-2023 09:36-0400 Respiratory rate 20 /min Dr. Martina Lal Work Phone: [facility] 10-16-2023 09:36-0400 Systolic blood pressure 149 mm[Hg] Dr. Martina Lal Work Phone: [facility] 09-10-2023 19:11-0500 Body temperature 97.5 [degF] Dr. Martina Lal Work Phone: [facility] 09-10-2023 19:11-0500 Diastolic blood pressure 82 mm[Hg] Dr. Martina Lal Work Phone: [facility] 09-10-2023 19:11-0500 Heart rate 87 /min Dr. Martina Lal Work Phone: [facility] 09-10-2023 19:11-0500 Respiratory rate 16 /min Dr. Martina Lal Work Phone: [facility] 09-10-2023 19:11-0500 SaO2% (BldA) [Mass fraction] 96 % Dr. Martina Lal Work Phone: [facility] 09-10-2023 19:11-0500 Systolic blood pressure 164 mm[Hg] Dr. Martina Lal Work Phone: [facility] 09-10-2023 16:26-0500 Body height 154.[address] Martina Lal Work Phone: [facility] 09-10-2023 16:26-0500 Body mass index (BMI) [Ratio] 38.7 kg/m2 Dr. Martina Lal Work Phone: [facility] 09-10-2023 16:26-0500 Body weight 92.[address] Martina Lal Work Phone: [facility] 06-03-2023 07:46-0500 Body height 154.[address] Martina Lal Work Phone: [facility] 06-03-2023 07:46-0500 Body mass index (BMI) [Ratio] 39.2 kg/m2 Dr. Martina Lal Work Phone: [facility] 06-03-2023 07:46-0500 Body temperature 97.6 [degF] Dr. Martina Lal Work Phone: [facility] 06-03-2023 07:46-0500 Body weight 94.[address] Martina Lal Work Phone: [facility] 06-03-2023 07:46-0500 Diastolic blood pressure 54 mm[Hg] Dr. Martina Lal Work Phone: [facility] 06-03-2023 07:46-0500 Heart rate 61 /min Dr. Martina Lal Work Phone: [facility] 06-03-2023 07:46-0500 SaO2% (BldA) [Mass fraction] 95 % Dr. Martina Lal Work Phone: [facility] 06-03-2023 07:46-0500 Systolic blood pressure 139 mm[Hg] Dr. Martina Lal Work Phone: [facility] 04-08-2023 14:59-0400 Body temperature 98 [degF] Dr. Martina Lal Work Phone: [facility] 04-08-2023 14:59-0400 Diastolic blood pressure 69 mm[Hg] Dr. Martina Lal Work Phone: [facility] 04-08-2023 14:59-0400 Heart rate 66 /min Dr. Martina Lal Work Phone: [facility] 04-08-2023 14:59-0400 Respiratory rate 16 /min Dr. Martina Lal Work Phone: [facility] 04-08-2023 14:59-0400 SaO2% (BldA) [Mass fraction] 97 % Dr. Martina Lal Work Phone: [facility] 04-08-2023 14:59-0400 Systolic blood pressure 182 mm[Hg] Dr. Martina Lal Work Phone: [facility] 03-03-2023 13:39-0400 Body height 154.[address] Martina Lal Work Phone: [facility] 03-03-2023 13:39-0400 Body mass index (BMI) [Ratio] 39.9 kg/m2 Dr. Martina Lal Work Phone: [facility] 03-03-2023 13:39-0400 Body weight 95.[address] Martina Lal Work Phone: [facility] 03-03-2023 13:39-0400 Diastolic blood pressure 67 mm[Hg] Dr. Martina Lal Work Phone: [facility] 03-03-2023 13:39-0400 Heart rate 66 /min Dr. Martina Lal Work Phone: [facility] 03-03-2023 13:39-0400 Respiratory rate 18 /min Dr. Martina Lal Work Phone: [facility] 03-03-2023 13:39-0400 Systolic blood pressure 159 mm[Hg] Dr. Martina Lal Work Phone: [facility] 01-31-2023 14:33-0400 Body height 155.57 cm Katharina Marion [facility] Work Phone: 01-31-2023 14:33-0400 Body mass index (BMI) [Ratio] 40.67 kg/m2 Katharina Marion [facility]; [facility] Work Phone: 01-31-2023 14:33-0400 Body surface area Derived from formula 1.96 m2 [facility] Work Phone: 01-31-2023 14:33-0400 Body temperature 97.8 [degF] [facility] Work Phone: Comment on above: Method: Thermal Scan 01-31-2023 14:33-0400 Body weight 98.43 kg Katharina Marion [facility]; [facility] Work Phone: 01-31-2023 14:33-0400 Diastolic blood pressure 62 mm[Hg] [facility] Work Phone: Comment on above: Patient Position: Sitting; Cuff Location : Left Arm; Cuff Size: Standard 01-31-2023 14:33-0400 Heart rate 68 /min Katharinawu Marion [facility]; [facility] Work Phone: Comment on above: Pattern: Regular 01-31-2023 14:33-0400 Respiratory rate 16 /[facility] Work Phone: Comment on above: Pattern: Unlabored 01-31-2023 14:33-0400 SaO2% (BldA) [Mass fraction] 95 % [facility] Work Phone: Comment on above: Room air 01-31-2023 14:33-0400 Systolic blood pressure 122 mm[Hg] [facility] Work Phone: Comment on above: Patient Position: Sitting; Cuff Location : Left Arm; Cuff Size: Standard 12-02-2022 13:46-0400 Body height 154.[address] Martina Lal Work Phone: [facility] 12-02-2022 13:46-0400 Body mass index (BMI) [Ratio] 39.9 kg/m2 Dr. Martina Lal Work Phone: [facility] 12-02-2022 13:46-0400 Body temperature 97.2 [degF] Dr. Martina Lal Work Phone: [facility] 12-02-2022 13:46-0400 Body weight 95.[address] Martina Lal Work Phone: [facility] 12-02-2022 13:46-0400 Diastolic blood pressure 55 mm[Hg] Dr. Martina Lal Work Phone: [facility] 12-02-2022 13:46-0400 Heart rate 54 /min Dr. Martina Lal Work Phone: [facility] 12-02-2022 13:46-0400 Respiratory rate 18 /min Dr. Martina Lal Work Phone: [facility] 12-02-2022 13:46-0400 SaO2% (BldA) [Mass fraction] 94 % Dr. Martina Lal Work Phone: [facility] 12-02-2022 13:46-0400 Systolic blood pressure 136 mm[Hg] Dr. Martina Lal Work Phone: [facility] 09-10-2022 07:53-0500 Body height 154.[address] Martina Lal Work Phone: [facility] 09-10-2022 07:53-0500 Body mass index (BMI) [Ratio] 40.8 kg/m2 Dr. Martina Lal Work Phone: [facility] 09-10-2022 07:53-0500 Body temperature 97 [degF] Dr. Martina Lal Work Phone: [facility] 09-10-2022 07:53-0500 Body weight 97.[address] Martina Lal Work Phone: [facility] 09-10-2022 07:53-0500 Diastolic blood pressure 66 mm[Hg] Dr. Martina Lal Work Phone: [facility] 09-10-2022 07:53-0500 Heart rate 72 /min Dr. Martina Lal Work Phone: [facility] 09-10-2022 07:53-0500 Respiratory rate 17 /min Dr. Martina Lal Work Phone: [facility] 09-10-2022 07:53-0500 SaO2% (BldA) [Mass fraction] 93 % Dr. Martina Lal Work Phone: [facility] 09-10-2022 07:53-0500 Systolic blood pressure 164 mm[Hg] Dr. Martina Lal Work Phone: [facility] 09-04-2022 15:09-0500 Body mass index (BMI) [Ratio] 40.6 kg/m2 Dr. Martina Lal Work Phone: [facility] 09-04-2022 15:09-0500 Body weight 97.[address] Martina Lal Work Phone: [facility] 09-04-2022 15:09-0500 Diastolic blood pressure 75 mm[Hg] Dr. Martina Lal Work Phone: [facility] 09-04-2022 15:09-0500 Heart rate 69 /min Dr. Martina Lal Work Phone: [facility] 09-04-2022 15:09-0500 Respiratory rate 20 /min Dr. Martina Lal Work Phone: [facility] 09-04-2022 15:09-0500 SaO2% (BldA) [Mass fraction] 95 % Dr. Martina Lal Work Phone: [facility] 09-04-2022 15:09-0500 Systolic blood pressure 175 mm[Hg] Dr. Martina Lal Work Phone: [facility] 09-02-2022 13:21-0500 Body mass index (BMI) [Ratio] 41.1 kg/m2 Dr. Martina Lal Work Phone: [facility] 09-02-2022 13:21-0500 Body temperature 97.2 [degF] Dr. Martina Lal Work Phone: [facility] 09-02-2022 13:21-0500 Body weight 98.[address] Martina Lal Work Phone: [facility] 09-02-2022 13:21-0500 Diastolic blood pressure 70 mm[Hg] Dr. Martina Lal Work Phone: [facility] 09-02-2022 13:21-0500 Heart rate 73 /min Dr. Martina Lal Work Phone: [facility] 09-02-2022 13:21-0500 Respiratory rate 18 /min Dr. Martina Lal Work Phone: [facility] 09-02-2022 13:21-0500 SaO2% (BldA) [Mass fraction] 98 % Dr. Martina Lal Work Phone: [facility] 09-02-2022 13:21-0500 Systolic blood pressure 163 mm[Hg] Dr. Martina Lal Work Phone: [facility] 08-29-2022 13:08-0500 Body height 155.57 cm Martina Lal DO Work Phone: [facility]; [facility] Work Phone: 08-29-2022 13:08-0500 Body mass index (BMI) [Ratio] 40.67 kg/m2 Martina Lal DO Work Phone: [facility]; [facility] Work Phone: 08-29-2022 13:08-0500 Body surface area Derived from formula 1.96 m2 Martina Thorpeon DO Work Phone: [facility]; [facility] Work Phone: 08-29-2022 13:08-0500 Body weight 98.43 kg Martina Lal DO Work Phone: [facility]; [facility] Work Phone: 08-29-2022 13:08-0500 Diastolic blood pressure 59 mm[Hg] Alondra [facility]; [facility] Work Phone: Comment on above: Patient Position: Sitting; Cuff Location : Left Arm; Cuff Size: Standard 08-29-2022 13:08-0500 Heart rate 74 /min Martina Thorpeon DO Work Phone: [facility]; [facility] Work Phone: Comment on above: Pattern: Regular 08-29-2022 13:08-0500 Systolic blood pressure 154 mm[Hg] [facility]; [facility] Work Phone: Comment on above: Patient Position: Sitting; Cuff Location : Left Arm; Cuff Size: Standard 07-25-2022 09:12-0500 Body height 155.57 cm Alondra Stapleton [facility]; [facility] Work Phone: 07-25-2022 09:12-0500 Body mass index (BMI) [Ratio] 40.71 kg/m2 Alondra Stapleton [facility]; [facility] Work Phone: 07-25-2022 09:12-0500 Body surface area Derived from formula 1.96 m2 Alondra Stapleton [facility]; [facility] Work Phone: 07-25-2022 09:12-0500 Body temperature 96.1 [degF] Alondra Stapleton [facility]; [facility] Work Phone: 07-25-2022 09:12-0500 Body weight 98.54 kg [facility]; [facility] Work Phone: 07-25-2022 09:12-0500 Diastolic blood pressure 64 mm[Hg] [facility]; [facility] Work Phone: Comment on above: Patient Position: Sitting; Cuff Location : Left Arm; Cuff Size: Standard 07-25-2022 09:12-0500 Heart rate 72 /min [facility]; [facility] Work Phone: Comment on above: Pattern: Regular 07-25-2022 09:12-0500 Respiratory rate 16 /min [facility]; [facility] Work Phone: Comment on above: Pattern: Unlabored 07-25-2022 09:12-0500 SaO2% (BldA) [Mass fraction] 95 % [facility]; [facility] Work Phone: Comment on above: Room air 07-25-2022 09:12-0500 Systolic blood pressure 122 mm[Hg] [facility]; [facility] Work Phone: Comment on above: Patient Position: Sitting; Cuff Location : Left Arm; Cuff Size: Standard 07-18-2022 08:01-0500 Body height 154.[address] Martina Lal Work Phone: [facility] 07-18-2022 08:01-0500 Body mass index (BMI) [Ratio] 41.5 kg/m2 Dr. Martina Lal Work Phone: [facility] 07-18-2022 08:01-0500 Body temperature 97.2 [degF] Dr. Martina Lal Work Phone: [facility] 07-18-2022 08:01-0500 Body weight 99.[address] Martina Lal Work Phone: [facility] 07-18-2022 08:01-0500 Diastolic blood pressure 80 mm[Hg] Dr. Martina Lal Work Phone: [facility] 07-18-2022 08:01-0500 Heart rate 78 /min Dr. Martina Lal Work Phone: [facility] 07-18-2022 08:01-0500 Respiratory rate 18 /min Dr. Martina Lal Work Phone: [facility] 07-18-2022 08:01-0500 SaO2% (BldA) [Mass fraction] 96 % Dr. Martina Lal Work Phone: [facility] 07-18-2022 08:01-0500 Systolic blood pressure 153 mm[Hg] Dr. Martina Lal Work Phone: [facility] 07-17-2022 14:32-0500 Body temperature 98 [degF] Dr. Martina Lal Work Phone: [facility] 07-17-2022 14:32-0500 Diastolic blood pressure 54 mm[Hg] Dr. Martina Lal Work Phone: [facility] 07-17-2022 14:32-0500 Heart rate 86 /min Dr. Martina Lal Work Phone: [facility] 07-17-2022 14:32-0500 Respiratory rate 18 /min Dr. Martina Lal Work Phone: [facility] 07-17-2022 14:32-0500 SaO2% (BldA) [Mass fraction] 92 % Dr. Martina Lal Work Phone: [facility] 07-17-2022 14:32-0500 Systolic blood pressure 182 mm[Hg] Dr. Martina Lal Work Phone: [facility] 07-17-2022 10:27-0500 Inhaled oxygen flow rate 2 L/min Dr. Martina Lal Work Phone: [facility] 07-17-2022 05:59-0500 Body weight [address] Martina Lal Work Phone: [facility] 07-14-2022 10:52-0500 Body height 154.[address] Martina Lal Work Phone: [facility] Work Phone: 07-14-2022 01:44-0500 Body mass index (BMI) [Ratio] 49.1 kg/m2 Dr. Martina Lal Work Phone: [facility] 07-14-2022 00:40-0500 Body temperature 97.6 [degF] Dr. Martina Lal Work Phone: [facility] Work Phone: 07-14-2022 00:40-0500 Diastolic blood pressure 55 mm[Hg] Dr. Martina Lal Work Phone: [facility] Work Phone: 07-14-2022 00:40-0500 Heart rate 79 /min Dr. Martina Lal Work Phone: [facility] Work Phone: 07-14-2022 00:40-0500 Respiratory rate 10 /min Dr. Martina Lal Work Phone: [facility] Work Phone: 07-14-2022 00:40-0500 SaO2% (BldA) [Mass fraction] 95 % Dr. Martina Lal Work Phone: [facility] Work Phone: 07-14-2022 00:40-0500 Systolic blood pressure 167 mm[Hg] Dr. Martina Lal Work Phone: [facility] Work Phone: 07-13-2022 18:49-0500 Body height 154.[address] Martina Lal Work Phone: [facility] Work Phone: 07-13-2022 18:49-0500 Body mass index (BMI) [Ratio] 42.9 kg/m2 Dr. Martina Lal Work Phone: [facility] Work Phone: 07-13-2022 18:49-0500 Body weight [address] Martina Lal Work Phone: [facility] Work Phone: 07-10-2022 14:53-0500 Body height 155.57 cm [facility] Work Phone: 07-10-2022 14:53-0500 Body mass index (BMI) [Ratio] 43.18 kg/m2 [facility]; [facility] Work Phone: 07-10-2022 14:53-0500 Body surface area [facility] Work Phone: 07-10-2022 14:53-0500 Body temperature 96.6 [degF] [facility]; [facility] Work Phone: 07-10-2022 14:53-0500 Body weight 104.51 kg [facility]; [facility] Work Phone: 07-10-2022 14:53-0500 Diastolic blood pressure 68 mm[Hg] [facility]; [facility] Work Phone: Comment on above: Patient Position: Sitting; Cuff Location : Left Arm; Cuff Size: Standard 07-10-2022 14:53-0500 Heart rate 68 /min [facility]; [facility] Work Phone: Comment on above: Pattern: Regular 07-10-2022 14:53-0500 Respiratory rate 16 /min [facility]; [facility] Work Phone: Comment on above: Pattern: Unlabored 07-10-2022 14:53-0500 SaO2% (BldA) [Mass fraction] 95 % [facility]; [facility] Work Phone: Comment on above: Room air 07-10-2022 14:53-0500 Systolic blood pressure 142 mm[Hg] Alondra [facility]; [facility] Work Phone: Comment on above: Patient Position: Sitting; Cuff Location : Left Arm; Cuff Size: Standard 07-10-2022 12:54-0500 Body mass index (BMI) [Ratio] 41.9 kg/m2 Dr. Martina Lal Work Phone: [facility] 07-10-2022 12:54-0500 Body weight 100.[address] Martina Lal Work Phone: [facility] 07-10-2022 12:54-0500 Diastolic blood pressure 69 mm[Hg] Dr. Martina Lal Work Phone: [facility] 07-10-2022 12:54-0500 Heart rate 80 /min Dr. Martina Lal Work Phone: [facility] 07-10-2022 12:54-0500 Respiratory rate 20 /min Dr. Martina Lal Work Phone: [facility] 07-10-2022 12:54-0500 SaO2% (BldA) [Mass fraction] 97 % Dr. Martina Lal Work Phone: [facility] 07-10-2022 12:54-0500 Systolic blood pressure 178 mm[Hg] Dr. Martina Lal Work Phone: [facility] 07-07-2022 15:45-0500 Body temperature 97.5 [degF] Dr. Martina Lal Work Phone: [facility] 07-07-2022 15:45-0500 Diastolic blood pressure 50 mm[Hg] Dr. Martina Lal Work Phone: [facility] 07-07-2022 15:45-0500 Heart rate 65 /min Dr. Martina Lal Work Phone: [facility] 07-07-2022 15:45-0500 Respiratory rate 18 /min Dr. Martina Lal Work Phone: [facility] 07-07-2022 15:45-0500 SaO2% (BldA) [Mass fraction] 96 % Dr. Martina Lal Work Phone: [facility] 07-07-2022 15:45-0500 Systolic blood pressure 161 mm[Hg] Dr. Martina Lal Work Phone: [facility] 07-07-2022 02:15-0500 Inhaled oxygen flow rate 2 L/min Dr. Martina Lal Work Phone: [facility] 07-04-2022 11:57-0500 Body weight 103.[address] Martina Lal Work Phone: [facility] 07-02-2022 12:59-0500 Body mass index (BMI) [Ratio] 43.2 kg/m2 Dr. Martina Lal Work Phone: [facility] 07-02-2022 11:50-0500 Body temperature 98.4 [degF] Dr. Martina Lal Work Phone: [facility] Work Phone: 07-02-2022 11:50-0500 Diastolic blood pressure 98 mm[Hg] Dr. Martina Lal Work Phone: [facility] Work Phone: 07-02-2022 11:50-0500 Heart rate 61 /min Dr. Martina Lal Work Phone: [facility] Work Phone: 07-02-2022 11:50-0500 Inhaled oxygen flow rate 2.5 L/min Dr. Martina Lal Work Phone: [facility] Work Phone: 07-02-2022 11:50-0500 Respiratory rate 18 /min Dr. Martina Lal Work Phone: [facility] Work Phone: 07-02-2022 11:50-0500 SaO2% (BldA) [Mass fraction] 94 % Dr. Martina Lal Work Phone: [facility] Work Phone: 07-02-2022 11:50-0500 Systolic blood pressure 114 mm[Hg] Dr. Martina Lal Work Phone: [facility] Work Phone: 07-02-2022 07:26-0500 Body height 154.[address] Martina Lal Work Phone: [facility] Work Phone: 07-02-2022 07:26-0500 Body mass index (BMI) [Ratio] 42.9 kg/m2 Dr. Martina Lal Work Phone: [facility] Work Phone: 07-02-2022 07:26-0500 Body weight 102.[address] Martina Lal Work Phone: [facility] Work Phone: 06-18-2022 14:46-0500 Body height 154.[address] Martina Lal Work Phone: [facility] Work Phone: 06-18-2022 14:34-0500 Body mass index (BMI) [Ratio] 43.4 kg/m2 Dr. Martina Lal Work Phone: [facility] 06-18-2022 14:34-0500 Body temperature 98.4 [degF] Dr. Martina Lal Work Phone: [facility] 06-18-2022 14:34-0500 Body weight 104.[address] Martina Lal Work Phone: [facility] 06-18-2022 14:34-0500 Diastolic blood pressure 68 mm[Hg] Dr. Martina Lal Work Phone: [facility] 06-18-2022 14:34-0500 Heart rate 71 /min Dr. Martina Lal Work Phone: [facility] 06-18-2022 14:34-0500 Respiratory rate 16 /min Dr. Martina Lal Work Phone: [facility] 06-18-2022 14:34-0500 SaO2% (BldA) [Mass fraction] 94 % Dr. Martina Lal Work Phone: [facility] 06-18-2022 14:34-0500 Systolic blood pressure 189 mm[Hg] Dr. Martina Lal Work Phone: [facility] 06-11-2022 14:52-0500 Body mass index (BMI) [Ratio] 43.5 kg/m2 Dr. Martina Lal Work Phone: [facility] 06-11-2022 14:52-0500 Body temperature 98 [degF] Dr. Martina Lal Work Phone: [facility] 06-11-2022 14:52-0500 Body weight 104.[address] Martina Lal Work Phone: [facility] 06-11-2022 14:52-0500 Diastolic blood pressure 69 mm[Hg] Dr. Martina Lal Work Phone: [facility] 06-11-2022 14:52-0500 Heart rate 65 /min Dr. Martina Lal Work Phone: [facility] 06-11-2022 14:52-0500 Respiratory rate 16 /min Dr. Martina Lal Work Phone: [facility] 06-11-2022 14:52-0500 SaO2% (BldA) [Mass fraction] 92 % Dr. Martina Lal Work Phone: [facility] 06-11-2022 14:52-0500 Systolic blood pressure 177 mm[Hg] Dr. Martina Lal Work Phone: [facility] 06-10-2022 14:17-0500 Body temperature 97.1 [degF] [facility]; [facility] Work Phone: 06-10-2022 14:17-0500 Diastolic blood pressure 70 mm[Hg] [facility]; [facility] Work Phone: Comment on above: Patient Position: Sitting; Cuff Location : Left Arm; Cuff Size: Standard 06-10-2022 14:17-0500 Heart rate 76 /min [facility]; [facility] Work Phone: Comment on above: Pattern: Regular 06-10-2022 14:17-0500 Respiratory rate 16 /min [facility]; [facility] Work Phone: Comment on above: Pattern: Unlabored 06-10-2022 14:17-0500 SaO2% (BldA) [Mass fraction] 94 % [facility]; [facility] Work Phone: Comment on above: Room air 06-10-2022 14:17-0500 Systolic blood pressure 132 mm[Hg] [facility]; [facility] Work Phone: Comment on above: Patient Position: Sitting; Cuff Location : Left Arm; Cuff Size: Standard 06-06-2022 15:06-0500 Body temperature 97.5 [degF] Dr. Martina Lal Work Phone: [facility] 06-06-2022 15:06-0500 Diastolic blood pressure 45 mm[Hg] Dr. Martina Lal Work Phone: [facility] 06-06-2022 15:06-0500 Heart rate 57 /min Dr. Martina Lal Work Phone: [facility] 06-06-2022 15:06-0500 Respiratory rate 17 /min Dr. Martina Lal Work Phone: [facility] 06-06-2022 15:06-0500 SaO2% (BldA) [Mass fraction] 92 % Dr. Martina Lal Work Phone: [facility] 06-06-2022 15:06-0500 Systolic blood pressure 148 mm[Hg] Dr. Martina Lal Work Phone: [facility] 06-04-2022 14:01-0500 Body height 154.[address] Martina Lal Work Phone: [facility] Work Phone: 06-04-2022 14:01-0500 Body mass index (BMI) [Ratio] 43.2 kg/m2 Dr. Martina Lal Work Phone: [facility] 06-04-2022 14:01-0500 Body weight 103.[address] Martina Lal Work Phone: [facility] 06-04-2022 14:01-0500 Diastolic blood pressure 66 mm[Hg] Dr. Martina Lal Work Phone: [facility] 06-04-2022 14:01-0500 Heart rate 55 /min Dr. Martina Lal Work Phone: [facility] 06-04-2022 14:01-0500 Respiratory rate 20 /min Dr. Martina Lal Work Phone: [facility] 06-04-2022 14:01-0500 SaO2% (BldA) [Mass fraction] 96 % Dr. Martina Lal Work Phone: [facility] 06-04-2022 14:01-0500 Systolic blood pressure 133 mm[Hg] Dr. Martina Lal Work Phone: [facility] 06-04-2022 11:00-0500 Body weight 104.[address] Martina Lal Work Phone: [facility] 05-24-2022 14:27-0400 Inhaled oxygen flow rate 2 L/min Dr. Martina Lal Work Phone: [facility] 05-23-2022 17:57-0400 Body mass index (BMI) [Ratio] 43.7 kg/m2 Dr. Martina Lal Work Phone: [facility] 05-23-2022 15:05-0400 Heart rate 69 /min Dr. Martina Lal Work Phone: [facility] 05-23-2022 15:00-0400 Body temperature 97.3 [degF] Dr. Martina Lal Work Phone: [facility] 05-23-2022 15:00-0400 Diastolic blood pressure 38 mm[Hg] Dr. Martina Lal Work Phone: [facility] 05-23-2022 15:00-0400 Inhaled oxygen flow rate 2 L/min Dr. Martina Lal Work Phone: [facility] 05-23-2022 15:00-0400 Respiratory rate 20 /min Dr. Martina Lal Work Phone: [facility] 05-23-2022 15:00-0400 SaO2% (BldA) [Mass fraction] 95 % Dr. Martina Lal Work Phone: [facility] 05-23-2022 15:00-0400 Systolic blood pressure 143 mm[Hg] Dr. Martina Lal Work Phone: [facility] 05-23-2022 05:54-0400 Body weight 104.[address] Martina Lal Work Phone: [facility] 05-21-2022 15:23-0400 Body height 154.[address] Martina Lal Work Phone: [facility] Work Phone: 05-20-2022 01:33-0400 Body mass index (BMI) [Ratio] 44 kg/m2 Dr. Martina Lal Work Phone: [facility] 05-20-2022 00:58-0400 Body temperature 98 [degF] Dr. Martina Lal Work Phone: [facility] Work Phone: 05-20-2022 00:58-0400 Diastolic blood pressure 60 mm[Hg] Dr. Martina Lal Work Phone: [facility] Work Phone: 05-20-2022 00:58-0400 Heart rate 70 /min Dr. Martina Lal Work Phone: [facility] Work Phone: 05-20-2022 00:58-0400 Inhaled oxygen flow rate 2 L/min Dr. Martina Lal Work Phone: [facility] Work Phone: 05-20-2022 00:58-0400 Respiratory rate 18 /min Dr. Martina Lal Work Phone: [facility] Work Phone: 05-20-2022 00:58-0400 SaO2% (BldA) [Mass fraction] 94 % Dr. Martina Lal Work Phone: [facility] Work Phone: 05-20-2022 00:58-0400 Systolic blood pressure 175 mm[Hg] Dr. Martina Lal Work Phone: [facility] Work Phone: 05-19-2022 22:18-0400 Body height 154.[address] Martina Lal Work Phone: [facility] Work Phone: 05-19-2022 22:18-0400 Body mass index (BMI) [Ratio] 43.4 kg/m2 Dr. Martina Lal Work Phone: [facility] Work Phone: 05-19-2022 22:18-0400 Body weight 104.[address] Martina Lal Work Phone: [facility] Work Phone: 05-18-2022 13:15-0400 Body temperature 97.9 [degF] Dr. Martina Lal Work Phone: [facility] 05-18-2022 13:15-0400 Diastolic blood pressure 80 mm[Hg] Dr. Martina Lal Work Phone: [facility] 05-18-2022 13:15-0400 Heart rate 69 /min Dr. Martina Lal Work Phone: [facility] 05-18-2022 13:15-0400 Respiratory rate 20 /min Dr. Martina Lal Work Phone: [facility] 05-18-2022 13:15-0400 SaO2% (BldA) [Mass fraction] 93 % Dr. Martina Lal Work Phone: [facility] 05-18-2022 13:15-0400 Systolic blood pressure 165 mm[Hg] Dr. Martina Lal Work Phone: [facility] 05-18-2022 07:20-0400 Inhaled oxygen flow rate 2 L/min Dr. Martina Lal Work Phone: [facility] 05-15-2022 13:58-0400 Body weight 104.[address] Martina Lal Work Phone: [facility] 05-15-2022 08:36-0400 Body mass index (BMI) [Ratio] 43.6 kg/m2 Dr. Martina Lal Work Phone: [facility] 05-15-2022 01:52-0400 Diastolic blood pressure 37 mm[Hg] Dr. Martina Lal Work Phone: [facility] Work Phone: 05-15-2022 01:52-0400 Heart rate 56 /min Dr. Martina Lal Work Phone: [facility] Work Phone: 05-15-2022 01:52-0400 SaO2% (BldA) [Mass fraction] 94 % Dr. Martina Lal Work Phone: [facility] Work Phone: 05-15-2022 01:52-0400 Systolic blood pressure 158 mm[Hg] Dr. Martina Lal Work Phone: [facility] Work Phone: 05-15-2022 01:07-0400 Body temperature 98.9 [degF] Dr. Martina Lal Work Phone: [facility] Work Phone: 05-15-2022 01:07-0400 Inhaled oxygen flow rate 2 L/min Dr. Martina Lal Work Phone: [facility] Work Phone: 05-15-2022 01:07-0400 Respiratory rate 19 /min Dr. Martina Lal Work Phone: [facility] Work Phone: 05-14-2022 20:21-0400 Body height 154.[address] Martina Lal Work Phone: [facility] Work Phone: 05-14-2022 20:21-0400 Body mass index (BMI) [Ratio] 43.4 kg/m2 Dr. Martina Lal Work Phone: [facility] Work Phone: 05-14-2022 20:21-0400 Body weight 104.[address] Martina Lal Work Phone: [facility] Work Phone: 05-10-2022 11:40-0400 Body height 155.57 [...] Infrared 05-10-2022 11:40-0400 Body weight 104.51 kg Turner Balderas LPN [facility]; [...] 98.6 [degF] Dr. Martina Lal Work Phone: [facility] 04-30-2022 16:03-0400 Diastolic blood pressure 41 mm[Hg] Dr. Martina Lal Work Phone: [facility] 04-30-2022 16:03-0400 Heart rate 56 /min Dr. Martina Lal Work Phone: [facility] 04-30-2022 16:03-0400 Respiratory rate 20 /min Dr. Martina Lal Work Phone: [facility] 04-30-2022 16:03-0400 SaO2% (BldA) [Mass fraction] 92 % Dr. Martina Lal Work Phone: [facility] 04-30-2022 16:03-0400 Systolic blood pressure 155 mm[Hg] Dr. Martina Lal Work Phone: [facility] 04-30-2022 11:45-0400 Inhaled oxygen flow rate 3 L/min Dr. Martina Lal Work Phone: [facility] 04-30-2022 08:00-0400 Body height 154.[address] Martina Lal Work Phone: [facility] Work Phone: 04-30-2022 08:00-0400 Body mass index (BMI) [Ratio] 42.9 kg/m2 Dr. Martina Lal Work Phone: [facility] 04-30-2022 08:00-0400 Body weight [address] Martina Lal Work Phone: [facility] 04-19-2022 11:51-0400 Body height 155.57 cm Martina Lal DO Work Phone: [facility]; [facility] Work Phone: 04-19-2022 11:51-0400 Body mass index (BMI) [Ratio] 44.42 kg/m2 Martina Lukasz DO Work Phone: [facility]; [facility] Work Phone: 04-19-2022 11:51-0400 Body surface area Derived from formula 2.04 m2 Martina Thorpeon DO Work Phone: [facility]; [facility] Work Phone: 04-19-2022 11:51-0400 Body temperature 97.3 [degF] Martina Thorpeon DO Work Phone: [facility]; [facility] Work Phone: Comment on above: Method: Oral 04-19-2022 11:51-0400 Body weight 107.5 kg Martina Lal DO Work Phone: [facility] [...] SaO2% (BldA) [Mass fraction] 94 % Martina Lukasz DO Work Phone: [facility]; [facility] Work Phone: Comment on above: Room air 04-19-2022 11:51-0400 Systolic blood pressure 200 mm[Hg] Martina Lukasz DO Work Phone: [facility]; [facility] Work Phone: Comment on above: Patient Position: Sitting; Cuff Location : Left Arm; Cuff Size: Standard 04-09-2022 15:37-0400 Body height 154.[address] Martina Lal Work Phone: [facility] Work Phone: 04-09-2022 15:37-0400 Body mass index (BMI) [Ratio] 44.1 kg/m2 Dr. Martina Lal Work Phone: [facility] Work Phone: 04-09-2022 15:37-0400 Body temperature 98.1 [degF] Dr. Martina Lal Work Phone: [facility] Work Phone: 04-09-2022 15:37-0400 Body weight 105.[address] Martina Lal Work Phone: [facility] Work Phone: 04-09-2022 15:37-0400 Diastolic blood pressure 62 mm[Hg] Dr. Martina Lal Work Phone: [facility] Work Phone: 04-09-2022 15:37-0400 Heart rate 72 /min Dr. Martina Lal Work Phone: [facility] Work Phone: 04-09-2022 15:37-0400 Respiratory rate 22 /min Dr. Martina Lal Work Phone: [facility] Work Phone: 04-09-2022 15:37-0400 SaO2% (BldA) [Mass fraction] 94 % Dr. Martina Lal Work Phone: [facility] Work Phone: 04-09-2022 15:37-0400 Systolic blood pressure 211 mm[Hg] Dr. Martina Lal Work Phone: [facility] Work Phone: 03-18-2022 10:22-0400 Body height 154.[address] Martina Lal Work Phone: [facility] Work Phone: 03-18-2022 10:22-0400 Body mass index (BMI) [Ratio] 44 kg/m2 Dr. Martina Lal Work Phone: [facility] Work Phone: 03-18-2022 10:22-0400 Body temperature 98 [degF] Dr. Martina Lal Work Phone: [facility] Work Phone: 03-18-2022 10:22-0400 Body weight 105.[address] Martina Lal Work Phone: [facility] Work Phone: 03-18-2022 10:22-0400 Diastolic blood pressure 59 mm[Hg] Dr. Martina Lal Work Phone: [facility] Work Phone: 03-18-2022 10:22-0400 Heart rate 61 /min Dr. Martina Lal Work Phone: [facility] Work Phone: 03-18-2022 10:22-0400 Respiratory rate 18 /min Dr. Martina Lal Work Phone: [facility] Work Phone: 03-18-2022 10:22-0400 SaO2% (BldA) [Mass fraction] 95 % Dr. Martina Lal Work Phone: [facility] Work Phone: 03-18-2022 10:22-0400 Systolic blood pressure 182 mm[Hg] Dr. Martina Lal Work Phone: [facility] Work Phone: 03-14-2022 12:59-0400 Body height 155.57 cm Keri Johnson [facility]; [facility] Work Phone: Comment on above: o2 went up to 92% pt c/o freezing cold f ingers from waiting room being cold she was not SOB or distressed 03-14-2022 12:59-0400 Body mass index (BMI) [Ratio] 44.42 kg/m2 Keri Johnson [facility]; [facility] Work Phone: Comment on above: o2 went up to 92% pt c/o freezing cold f ingers from waiting room being cold she was not SOB or distressed 03-14-2022 12:59-0400 Body surface area Derived from formula 2.04 m2 Keri Johnson [facility]; [facility] Work Phone: Comment on above: o2 went up to 92% pt c/o freezing cold f ingers from waiting room being cold she was not SOB or distressed 03-14-2022 12:59-0400 Body temperature 97.3 [degF] Keri Johnson [facility]; [facility] Work Phone: Comment on above: o2 went up to 92% pt c/o freezing cold f ingers from waiting room being cold she was not SOB or distressed 03-14-2022 12:59-0400 Body weight 107.5 kg Keri Johnson [facility]; [facility] Work Phone: Comment on above: o2 went up to 92% pt c/o freezing cold f ingers from waiting room being cold she was not SOB or distressed 03-14-2022 12:59-0400 Diastolic blood pressure 76 mm[Hg] Keri Johnson [facility]; [facility] Work Phone: Comment on above: Patient Position: Sitting; Cuff Location : Left Arm; Cuff Size: Standard o2 went up to 92% pt c/o freezing cold fingers from waiting room being cold she was not SOB or distressed 03-14-2022 12:59-0400 Heart rate 60 /min Keri Johnson [facility]; [facility] Work Phone: Comment on above: Pattern: Regular o2 went up to 92% pt c/o freezing cold fingers from waiting room being cold she was not SOB or distressed 03-14-2022 12:59-0400 Respiratory rate 20 /min Keri Johnson [facility]; [facility] Work Phone: Comment on above: Pattern: Unlabored o2 went up to 92% pt c/o freezing cold fingers from waiting room being cold she was not SOB or distressed 03-14-2022 12:59-0400 SaO2% (BldA) [Mass fraction] 88 % Keri Johnson [facility]; [facility] Work Phone: Comment on above: Room air o2 went up to 92% pt c/o freezing cold fingers from waiting room being cold she was not SOB or distressed 03-14-2022 12:59-0400 Systolic blood pressure 120 mm[Hg] Keri Johnson [facility]; [facility] Work Phone: Comment on above: Patient Position: Sitting; Cuff Location : Left Arm; Cuff Size: Standard o2 went up to 92% pt c/o freezing cold fingers from waiting room being cold she was not SOB or distressed 03-07-2022 12:11-0400 Body height 155.57 cm Keri Johnson [facility]; [facility] Work Phone: Comment on above: no vs taken as this is phone encounter d ue to covid 03-07-2022 12:11-0400 Body mass index (BMI) [Ratio] 44.42 kg/m2 Keri Johnson [facility]; [facility] Work Phone: Comment on above: no vs taken as this is phone encounter d ue to covid 03-07-2022 12:11-0400 Body surface area Derived from formula 2.04 m2 [facility]; [facility] Work Phone: Comment on above: no vs taken as this is phone encounter d ue to covid 03-07-2022 12:11-0400 Body weight 107.5 kg Keri Duongius [employer] [facility]; [facility] Work Phone: Comment on above: no vs taken as this is phone encounter d ue to covid 02-18-2022 15:47-0400 Body height 155.57 cm Keri Johnson [facility]; [facility] Work Phone: 02-18-2022 15:47-0400 Body mass index (BMI) [Ratio] 44.42 kg/m2 Keri Johnson [facility]; [facility] Work Phone: 02-18-2022 15:47-0400 Body surface area Derived from formula 2.04 m2 Keri Johnson [facility]; [facility] Work Phone: 02-18-2022 15:47-0400 Body temperature 98.1 [degF] Keri Johnson CMA [facility]; [facility] Work Phone: Comment on above: Method: Infrared 02-18-2022 15:47-0400 Body weight 107.5 kg Keri Johnson [facility]; [facility] Work Phone: 02-18-2022 15:47-0400 Diastolic blood pressure 54 mm[Hg] Keri Johnson [facility]; [facility] Work Phone: Comment on above: Patient Position: Sitting; Cuff Location : Left Arm; Cuff Size: Standard 02-18-2022 15:47-0400 Heart rate 64 /min Keri Johnson [facility]; [facility] Work Phone: Comment on above: Pattern: Regular 02-18-2022 15:47-0400 Respiratory rate 18 /min Keri Johnson [employer] [facility]; [facility] Work Phone: Comment on above: Pattern: Unlabored 02-18-2022 15:47-0400 SaO2% (BldA) [Mass fraction] 92 % Keri Johnson [facility]; [facility] Work Phone: Comment on above: Room air 02-18-2022 15:47-0400 Systolic blood pressure 138 mm[Hg] Keri Johnson [facility]; [facility] Work Phone: Comment on above: Patient Position: Sitting; Cuff Location : Left Arm; Cuff Size: Standard 12-31-2021 11:02-0400 Body height 155.57 cm Keri Johnson CMA [facility]; [facility] Work Phone: 12-31-2021 11:02-0400 Body mass index (BMI) [Ratio] 44.42 kg/m2 Keri Johnson [facility]; [facility] Work Phone: 12-31-2021 11:02-0400 Body surface area Derived from formula 2.04 m2 Keri Johnson [facility]; [facility] Work Phone: 12-31-2021 11:02-0400 Body temperature 97.3 [degF] Keri Johnson CMA [facility]; [facility] Work Phone: Comment on above: Method: Temporal 12-31-2021 11:02-0400 Body weight 107.5 kg Keri Johnson [facility]; [facility] Work Phone: 12-31-2021 11:02-0400 Diastolic blood pressure 52 mm[Hg] Keri Johnson [facility]; [facility] Work Phone: Comment on above: Patient Position: Sitting; Cuff Location : Left Arm; Cuff Size: Standard 12-31-2021 11:02-0400 Heart rate 62 /min Keri Johnson [facility]; [facility] Work Phone: Comment on above: Pattern: Regular 12-31-2021 11:02-0400 Respiratory rate 16 /min Keri Johnson [facility]; [facility] Work Phone: Comment on above: Pattern: Unlabored 12-31-2021 11:02-0400 SaO2% (BldA) [Mass fraction] 92 % Keri Johnson [facility]; [facility] Work Phone: Comment on above: Room air 12-31-2021 11:02-0400 Systolic blood pressure 141 mm[Hg] Keri Johnson [facility]; [facility] Work Phone: Comment on above: Patient Position: Sitting; Cuff Location : Left Arm; Cuff Size: Standard 11-09-2021 10:12-0400 Body height 154.[address] Martina Lal Work Phone: [facility] Work Phone: 11-09-2021 10:12-0400 Body mass index (BMI) [Ratio] 44.7 kg/m2 Dr. Martina Lal Work Phone: [facility] Work Phone: 11-09-2021 10:12-0400 Body temperature 97.4 [degF] Dr. Martina Lal Work Phone: [facility] Work Phone: 11-09-2021 10:12-0400 Body weight 107.[address] Martina Lal Work Phone: [facility] Work Phone: 11-09-2021 10:12-0400 Diastolic blood pressure 69 mm[Hg] Dr. Martina Lal Work Phone: [facility] Work Phone: 11-09-2021 10:12-0400 Heart rate 54 /min Dr. Martina Lal Work Phone: [facility] Work Phone: 11-09-2021 10:12-0400 Respiratory rate 17 /min Dr. Martina Lal Work Phone: [facility] Work Phone: 11-09-2021 10:12-0400 SaO2% (BldA) [Mass fraction] 95 % Dr. Martina Lal Work Phone: [facility] Work Phone: 11-09-2021 10:12-0400 Systolic blood pressure 177 mm[Hg] Dr. Martina Lal Work Phone: [facility] Work Phone: 10-17-2021 13:49-0400 Body height 155.57 [...] Regular 10-17-2021 13:49-0400 Respiratory rate 16 /min Nelda Mallory LPN [...] 08:54-0400 Body height 155.57 cm Turner Balderas [employer] [facility]; [facility] Work Phone: 10-10-2021 08:54-0400 Body mass index (BMI) [Ratio] 44.09 kg/m2 Turner Balderas [employer] [facility]; [facility] Work Phone: 10-10-2021 08:54-0400 Body surface area Derived from formula 2.03 m2 Turner Balderas [employer] [facility]; [facility] Work Phone: 10-10-2021 08:54-0400 Body weight 106.71 kg Turner Balderas [employer] [facility]; [facility] Work Phone: 10-10-2021 08:54-0400 Diastolic blood pressure 71 mm[Hg] Turner Balderas [employer] [facility]; [facility] Work Phone: Comment on above: Patient Position: Sitting; Cuff Location : Left Arm; Cuff Size: Standard 10-10-2021 08:54-0400 Systolic blood pressure 197 mm[Hg] Turner Balderas [employer] [facility]; [facility] Work [...] 14:05-0500 Body weight 108.58 kg Nelda Mallory [employer] [facility]; [facility] Work [...] Systolic blood pressure 148 mm[Hg] Nelda Mallory [employer] [facility]; [facility] Work Phone: Comment on above: Patient Position: Sitting; Cuff Location : Left Arm; Cuff Size: Standard 08-10-2021 08:16-0500 Body height 155.57 cm [facility]; [facility] Work Phone: 08-10-2021 08:16-0500 Body mass index (BMI) [Ratio] 43.86 kg/m2 Keri Johnson CMA [facility]; [facility] Work Phone: 08-10-2021 08:16-0500 Body surface area Derived from formula 2.03 m2 Keri Johnson [employer] [facility]; [facility] Work Phone: 08-10-2021 08:16-0500 Body temperature 97.1 [degF] Keri Johnson CMA [facility]; [facility] Work Phone: Comment on above: Method: Infrared 08-10-2021 08:16-0500 Body weight 106.15 kg Keri Johnson [facility]; [facility] Work Phone: 08-10-2021 08:16-0500 Diastolic blood pressure 82 mm[Hg] Keri Johnson CMA [facility]; [facility] Work Phone: Comment on above: Patient Position: Sitting; Cuff Location : Left Arm; Cuff Size: Standard 08-10-2021 08:16-0500 Heart rate 57 /min Keri Johnson [facility]; [facility] Work Phone: Comment on above: Pattern: Regular 08-10-2021 08:16-0500 Respiratory rate 16 /min Keri Johnson CMA [facility]; [facility] Work Phone: Comment on above: Pattern: Unlabored 08-10-2021 08:16-0500 SaO2% (BldA) [Mass fraction] 97 % Keri Johnson [facility]; [facility] Work Phone: Comment on above: Room air 08-10-2021 08:16-0500 Systolic blood pressure 158 mm[Hg] Keri Johnson [facility]; [facility] Work [...] 05-28-2021 11:13-0500 Diastolic blood pressure 80 mm[Hg] Daine Austin MA [facility]; [facility] [...] 04-04-2021 14:35-0400 Body temperature 97.1 [degF] Nelda Mallory [employer] [facility]; [facility] Work Phone: Comment on above: Method: Temporal 04-04-2021 14:35-0400 Body weight 104.79 kg Nelda Mallory [place] [facility]; [facility] Work Phone: 04-04-2021 14:35-0400 Diastolic blood pressure 70 mm[Hg] Nelda Mallory [employer] [facility]; [facility] Work Phone: Comment on above: Patient Position: Sitting; Cuff Location : Left Arm; Cuff Size: Standard 04-04-2021 14:35-0400 Heart rate 59 /min Nelda Mallory [employer] [facility]; [facility] Work Phone: Comment on above: Pattern: Regular 04-04-2021 14:35-0400 Respiratory rate 16 /min Nelda Mallory [place] [facility]; [facility] Work Phone: Comment on above: Pattern: Unlabored 04-04-2021 14:35-0400 SaO2% (BldA) [Mass fraction] 96 % Nelda Mallory SERVOMECHANISM ASSEMBLER [facility]; [facility] Work Phone: Comment on above: Room air 04-04-2021 14:35-0400 Systolic blood pressure 150 mm[Hg] Nelda Mallory [facility]; [facility] Work Phone: Comment on above: Patient Position: Sitting; Cuff Location : Left Arm; Cuff Size: Standard 03-20-2021 12:27-0400 Body height 155.57 cm Nelda Swanman [employer]OMECH[employer]ISM ASSEMBLER [facility]; [facility] Work Phone: 03-20-2021 12:27-0400 Body mass index (BMI) [Ratio] 43.3 kg/m2 Neldamónica Mallory [facility]; [facility] Work Phone: 03-20-2021 12:27-0400 Body surface area Derived from formula 2.01 m2 Nelda Mallory [facility]; [facility] Work Phone: 03-20-2021 12:27-0400 Body temperature 97.3 [degF] Nelda Mallory LPN [facility]; [facility] Work Phone: Comment on above: Method: Temporal 03-20-2021 12:27-0400 Body weight 104.79 kg Nelda Mallory [facility]; [facility] [...] 12:27-0400 SaO2% (BldA) [Mass fraction] 94 % Nelda Mallory LPN [facility]; [facility] Work Phone: Comment on above: Room air 03-20-2021 12:27-0400 Systolic blood pressure 144 mm[Hg] Nelda Mallory [employer]OMECH[employer] ASSEMBLER [facility]; [facility] Work Phone: Comment on above: Patient Position: Sitting; Cuff Location : Left Arm; Cuff Size: Standard 12-13-2020 12:29-0400 Body height 155.57 cm Turner Balderas LPN [...] Medicine; [facility] Work Phone: 12-13-2020 [id number] Body surface area Derived from formula 2.04 m2 Turner Balderas LPN [facility]; [facility] Work Phone: 12-13-2020 12:29-040 Body temperature 97.1 [degF] Turner Balderas LPN [facility]; [facility] Work Phone: Comment on above: Method: Infrared 12-13-2020 12:040 Body weight 105.69 kg Turner Balderas LPN [facility]; [facility] Work Phone: 12-13-2020 12: Body weight 107.97 kg Turner Balderas LPN [...] Mass Index) 42.98 kg/m2 Michael Michel MD [facility] Work Phone: 05-09-2017 14:14-0400 BP Diastolic 70 mm[Hg] Michael Michel MD [facility] Work Phone: 05-09-2017 14:14-0400 BP Systolic 150 mm[Hg] Michael Michel MD [facility] Work Phone: 05-09-2017 14:14-0400 Height 157.48 cm Michael Michel MD [facility] Work Phone: 05-09-2017 14:14-0400 Pulse (Heart Rate) 68 /min Michael Michel MD [facility] Work Phone: 05-09-2017 14:14-0400 Respiratory Rate 18 /min Michael Michel MD [facility] Work Phone: 05-09-2017 14:14-0400 Weight 106.6 kg Michael Michel MD [facility] Work Phone: Encounters Encounter Date Encounter Type Care Provider Facility Start: 01-12-2025 ambulatory Martina Lal Facilit y:[facility] Start: 01-12-2025 Non-patient / Non-visit Dr. Christine LAINEZ -[facility] Start: 01-12-2025 End: 01-12-[address] Martina Lal DO Work Phone: -Cardiovascular Services Start: 01-12-2025 End: 01-12-2025 Patient encounter procedure Kimberly WASHINGTON -Cardiovascular Services Work Phone: Start: 01-12-2025 End: 01-12-2025 ambulatory Martina Lal Facility:[facility] Start: 01-01-2025 End: 01-01-2025 Patient encounter procedure Neftaly WASHINGTON -[facility] Work Phone: Start: 01-01-2025 End: 01-01-[address] Martina Lal DO Work Phone: [facility] Work Phone: Start: 12-24-2024 End: 12-24-[address] Brent Kelley MD -[facility] Start: 12-24-2024 End: 12-24-[address] Martina Lal DO Work Phone: [facility] Work Phone: Start: 12-24-2024 End: 12-24-2024 ambulatory Mackenzie Rajiv Facility:[facility] Start: 12-16-2024 End: 12-16-2024 Patient encounter procedure Kimberly WASHINGTON -[facility] Work Phone: Start: 12-16-2024 End: 12-16-[address] Martina Lal DO Work Phone: [facility] Work Phone: Start: 12-06-2024 End: 12-06-2024 Patient encounter procedure Kimberly WASHINGTON -[facility] Work Phone: Start: 12-06-2024 End: 12-06-2024 ambulatory Martina Lal Facility:[facility] Start: 11-09-2024 Non-patient / Non-visit Dr. Willy jackson MD -[facility] Start: 11-09-2024 End: 11-09-[address] Martina Lal DO Work Phone: [facility] Work Phone: Start: 11-09-2024 End: 11-09-2024 Patient encounter procedure Louise WASHINGTON -Cardiovascular Services Work Phone: Start: 11-09-2024 End: 11-09-2024 ambulatory Martina Lal Facility:[facility] Start: 10-12-2024 End: 10-12-[address] Martina Lal DO Work Phone: [facility] Work Phone: Start: 10-12-2024 End: 10-12-[address] Martina Lal DO -Laboratory, [place] Work Phone: Start: 10-12-2024 End: 10-12-2024 ambulatory Dena Kwok Facility:[facility] Start: 10-07-2024 End: 10-07-[address] Martina Lal DO Work Phone: [facility] Work Phone: Start: 10-07-2024 End: 10-07-[address] Martina Lal DO -Outpatient Breast Imaging Work Phone: Start: 10-07-2024 End: 10-07-2024 ambulatory Martina Lal Facility:[facility] Start: 09-16-2024 ambulatory Martina Lal Facilit y:[facility] Start: 08-17-2024 End: 08-17-2024 Patient encounter procedure Kimberly WASHINGTON -[facility] Work Phone: Start: 08-17-2024 End: 08-17-2024 ambulatory Martina Lal Facility:[facility] Start: 08-09-2024 End: 08-09-[address] Willy Trimble MD -[facility] Work Phone: Start: 08-09-2024 End: 08-09-2024 ambulatory Martina Lal Facility:[facility] Start: 07-01-2024 End: 07-01-2024 ambulatory Tamra Francis Facility:[facility] Start: 07-01-2024 End: 07-01-[address] Tamra Francis MD -Physical Therapy Work Phone: Start: 06-01-2024 ambulatory Martina Lal Facilit y:[facility] Start: 04-30-2024 ambulatory Willy Trimble Facility:[facility] Start: 04-30-2024 End: 04-30-2024 ambulatory Willy Keyey Facility:[facility] Start: 04-28-2024 End: 04-28-2024 ambulatory Martina Lal Facility:[facility] Start: 03-19-2024 End: 03-19-2024 ambulatory Martina Lal Facility:[facility] Start: 03-17-2024 End: 03-17-2024 ambulatory Martina Lal Facility:[facility] Start: 03-15-2024 End: 03-15-2024 ambulatory Dena Rissa Facility:[facility] Start: 03-12-2024 End: 03-12-2024 Emergency department patient visit Tavon Dennis Facility:[facility] Start: 03-08-2024 End: 03-08-2024 ambulatory Tamra Francis Facility:[facility] Start: 11-14-2023 End: 11-14-[address] Martina Lal Work Phone: [facility] Work Phone: Start: 11-14-2023 End: 11-14-[address] Martina Lal Work Phone: [facility]-Cardiovascular Services Work Phone: Start: 11-13-2023 End: 11-13-[address] Martina Lal Work Phone: [facility] Work Phone: Start: 11-13-2023 End: 11-13-[address] Martina Lal Work Phone: [facility]-Pulmonary Services/Neurology Work Phone: Start: 11-12-2023 End: 11-12-[address] Martina Lal Work Phone: [facility] Work Phone: Start: 11-12-2023 End: 11-12-[address] Martina Lal Work Phone: [facility] Work Phone: Start: 10-24-2023 End: 10-24-[address] Martina Lal Work Phone: [facility] Work Phone: Start: 10-24-2023 End: 10-24-[address] Martina Lal Work Phone: [facility] Work Phone: Start: 10-16-2023 End: 10-16-[address] Martina Lal Work Phone: [facility] Work Phone: Start: 09-15-2023 End: 09-15-[address] Martina Lal Work Phone: [facility] Work Phone: Start: 09-15-2023 End: 09-15-[address] Martina Lal Work Phone: [facility] Work Phone: Start: 09-10-2023 End: 09-10-2023 Emergency department patient visit Dr. Martina Lal Work Phone: [facility]-Emergency Department Work Phone: Start: 09-05-2023 Non-patient / Non-visit Dr. Pascual Lal Work Phone: [facility] Start: 09-05-2023 End: 09-05-[address] Martina Lal Work Phone: [facility] Work Phone: Start: 09-05-2023 End: 09-05-[address] [facility] Start: 09-03-2023 End: 09-03-[address] Martina Lal Work Phone: [facility] Work Phone: Start: 09-03-2023 End: 09-03-[address] Martina Lal Work Phone: [facility], [facility] Work Phone: Start: 07-10-2023 End: 07-10-[address] Martina Lal Work Phone: [facility] Work Phone: Start: 07-10-2023 End: 07-10-[address] Martina Lal Work Phone: [facility] Work Phone: Start: 06-03-2023 End: 06-03-[address] Martina Lal Work Phone: [facility]-Pulmonary Medicine [facility] Work Phone: Start: 05-07-2023 End: 05-07-[address] Maritna Lla Work Phone: [facility] Work Phone: Start: 05-07-2023 End: 05-07-[address] Martina aLl Work Phone: [facility]-Cat Scan, [facility] Work Phone: Start: 04-08-2023 End: 04-08-[address] Martina Lal Work Phone: [facility] Vascular Surgery Work Phone: Start: 03-13-2023 Non-patient / Non-visit Dr. Pascual Lal Work Phone: [facility] Work Phone: Start: 03-11-2023 Non-patient / Non-visit [facility] Start: 03-11-2023 End: 03-11-[address] Martina Lal Work Phone: [facility] Work Phone: Start: 03-11-2023 End: 03-11-[address] [facility] Start: 03-03-2023 End: 03-03-[address] Martina Lal Work Phone: [facility] Work Phone: Start: 02-10-2023 End: 02-17-[address] Martina Lal Work Phone: [facility] Work Phone: Start: 02-10-2023 End: 02-17-[address] Martina Lal Work Phone: [facility] Work Phone: Start: 01-31-2023 End: 02-02-2023 Office outpatient visit 10 minutes Martina Lal DO Work Phone: [facility] Start: 01-31-2023 Review Martina patel DO Work Phone: [facility] Start: 01-10-2023 End: 01-10-[address] Martina Lal Work Phone: [facility] Work Phone: Start: 01-10-2023 End: 01-10-[address] Martina Lal Work Phone: [facility] Work Phone: Start: 12-02-2022 End: 12-02-[address] Martina Lal Work Phone: [facility]-Pulmonary Medicine [facility] Work Phone: Start: 11-11-2022 End: 11-17-[address] Martina Lal Work Phone: [facility] Work Phone: Start: 11-11-2022 End: 11-17-[address] Martina Lal Work Phone: [facility] Start: 10-10-2022 End: 10-18-[address] Martina Lal Work Phone: [facility] Work Phone: Start: 10-10-2022 End: 10-18-[address] Martina Lal Work Phone: [facility] Start: 09-12-2022 End: 09-12-[address] Martina Lal Work Phone: [facility] Work Phone: Start: 09-12-2022 End: 09-12-[address] Martina Lal Work Phone: [facility] Start: 09-12-2022 End: 09-12-2022 Dr. Martina Lal Work Phone: [facility] Start: 09-10-2022 End: 09-10-[address] [facility] Start: 09-10-2022 End: 09-10-2022 Dr. Martina Lal [facility] Start: 09-04-2022 End: 09-04-[address] Martina Lal Work Phone: [facility] Start: 09-04-2022 End: 09-04-2022 Dr. Martina Lal Work Phone: [facility] Start: 09-02-2022 End: 09-02-[address] Martina Lal Work Phone: [facility] Start: 09-02-2022 End: 09-02-2022 Dr. Martina Lal Work Phone: [facility] Start: 08-29-2022 End: 08-29-2022 Office outpatient visit 25 minutes Martina Lal DO Work Phone: [facility] Start: 08-29-2022 Review Martina patel DO Work Phone: [facility] Start: 08-23-2022 ambulatory Martina Lal DO [facility] Start: 08-13-2022 End: 08-13-2022 Lab Order Martina Lal DO Work Phone: [facility] Start: 08-08-2022 End: 08-08-[address] Martina Lal Work Phone: [facility] Work Phone: Start: 08-08-2022 End: 08-08-[address] Martina Lal Work Phone: [facility]-Laboratory Start: 08-08-2022 End: 08-08-2022 Dr. Martina Lal Work Phone: [facility]-Laboratory Start: 08-07-2022 End: 08-07-2022 Admission to establishment Martina Lal DO Work Phone: [facility] Start: 08-01-2022 End: 08-01-[address] Martina aLl Work Phone: [facility] Work Phone: Start: 08-01-2022 End: 08-01-[address] [facility] Start: 08-01-2022 End: 08-01-2022 Dr. Martina Lal [facility] Start: 07-31-2022 End: 07-31-2022 Patient encounter procedure Martina Lal DO Work Phone: [facility] Start: 07-25-2022 Review Martina patel DO Work Phone: [facility] Start: 07-25-2022 End: 07-25-2022 Transitional care manage srvc 14 day discharge Martina Lal DO Work Phone: [facility] Internal Medicine Start: 07-23-2022 End: 08-20-[address] Martina Lal Work Phone: [facility] Work Phone: Start: 07-23-2022 End: 08-20-[address] Martina Lal Work Phone: [facility] Start: 07-23-2022 End: 08-20-2022 Dr. Martina Lal Work Phone: [facility] Start: 07-18-2022 End: 07-18-[address] Martina Lal Work Phone: [facility] Start: 07-18-2022 End: 07-18-2022 Dr. Martina Lal [facility] Start: 07-17-2022 Non-patient / Non-visit Dr. Pascual Lal Work Phone: [facility] Phys[facility] Start: 07-17-2022 Dr. Martina perera Work Phone: [facility] Start: 07-16-2022 Non-patient / Non-visit Dr. Pascual Lal Work Phone: [facility] Start: 07-16-2022 Dr. Martina perera Work Phone: [facility] Start: 07-16-2022 End: 07-17-2022 Evaluation and management of inpatient Dr. Martina Lal Work Phone: [facility] 3 Start: 07-16-2022 End: 07-17-2022 Dr. Martina Lal Work Phone: [facility] 3 Start: 07-16-2022 End: 07-16-2022 Non-patient / Non-visit Dr. Martina Lal Work Phone: [facility] Start: 07-16-2022 End: 07-16-2022 Dr. Martina Lal Work Phone: [facility] Start: 07-15-2022 Non-patient / Non-visit Dr. Pascual Lal Work Phone: [facility] Start: 07-15-2022 Dr. Martina perera Work Phone: [facility] Start: 07-14-2022 Non-patient / Non-visit Dr. Pascual Lal Work Phone: [facility] Start: 07-14-2022 Dr. Martina perera Work Phone: [facility] Start: 07-13-2022 Evaluation and management of inpatient Dr. Martina Lal Work Phone: [facility] Surgical 3 Start: 07-13-2022 Non-patient / Non-visit Dr. Pascual Lal Work Phone: [facility] Start: 07-13-[address] Prisca Lal Work Phone: [facility] Work Phone: Start: 07-13-2022 Dr. Martina perera Work Phone: [facility] Start: 07-10-2022 Rob patel DO Work Phone: [facility] Start: 07-10-2022 End: 07-10-2022 Office outpatient visit 15 minutes Martina Lal DO Work Phone: [facility] Start: 07-10-2022 End: 07-10-[address] Martina Lal Work Phone: [facility] Start: 07-10-2022 End: 07-10-2022 Dr. Martina Lal Work Phone: [facility] Start: 07-07-2022 Non-patient / Non-visit Dr. Pascual Lal Work Phone: [facility] Start: 07-07-2022 Dr. Martina perera Work Phone: [facility] Start: 07-06-2022 Non-patient / Non-visit Dr. Pascual Lal Work Phone: [facility] Start: 07-06-2022 Dr. Martina perera Work Phone: [facility] Start: 07-05-2022 Non-patient / Non-visit Dr. Pascual Lal Work Phone: [facility] Start: 07-05-2022 Dr. Martina perera Work Phone: [facility] Start: 07-04-2022 Non-patient / Non-visit Dr. Pascual Lal Work Phone: [facility] Start: 07-04-2022 Dr. Martina perera Work Phone: [facility] Start: 07-04-2022 Non-patient / Non-visit Dr. Pascual Lal Work Phone: [facility] Start: 07-04-2022 Dr. Martina perera Work Phone: [facility] Start: 07-03-2022 End: 07-07-2022 Evaluation and management of inpatient Dr. Martina Lal Work Phone: [facility] Start: 07-03-2022 End: 07-03-2022 Non-patient / Non-visit Dr. Martina Lal Work Phone: [facility] Start: 07-03-2022 End: 07-07-2022 Dr. Martina Lal Work Phone: [facility] Start: 07-02-2022 Rob patel DO Work Phone: [facility] Start: 07-02-2022 Evaluation and management of inpatient Dr. Martina Lal Work Phone: [facility] Start: 07-02-2022 Non-patient / Non-visit Dr. Pascual Lal Work Phone: [facility] Start: 07-02-[address] Prisca Lal Work Phone: [facility] Work Phone: Start: 07-02-2022 Dr. Martina perera Work Phone: [facility] Start: 06-18-2022 End: 06-18-[address] Martina Lal Work Phone: [facility] Start: 06-18-2022 End: 06-18-2022 Dr. Martina Lal Work Phone: [facility] Start: 06-17-2022 End: 06-19-[address] Martina Lal Work Phone: [facility] Start: 06-17-2022 End: 06-19-2022 Dr. Martina Lal Work Phone: [facility] Start: 06-12-2022 End: 06-12-2022 Phone Encounter Martina Lal DO Work Phone: [facility] Start: 06-11-2022 End: 06-11-[address] Martina Lal Work Phone: [facility] Start: 06-11-2022 End: 06-11-2022 Dr. Martina Lal Work Phone: [facility] Start: 06-10-2022 Review Martina patel DO Work Phone: [facility] Start: 06-10-2022 End: 06-10-2022 Office outpatient visit 40 minutes Martina Lal DO Work Phone: [facility] Start: 06-08-2022 End: 06-19-[address] Martina Lal Work Phone: [facility] Work Phone: Start: 06-08-2022 End: 06-19-[address] Martina Lal Work Phone: [facility]-Laboratory, Specimen Start: 06-08-[address] Pito Lal Work Phone: [facility]-Laboratory, Specimen Start: 06-08-2022 End: 06-19-2022 Dr. Martina Lal Work Phone: [facility]-Laboratory, Specimen Start: 06-07-2022 End: 06-07-2022 Phone Encounter Martina Lal DO Work Phone: [facility] Start: 06-07-2022 End: 06-07-2022 Phone Encounter Martina Lal DO Work Phone: [facility] Start: 06-06-2022 Non-patient / Non-visit Dr. Pascual Lal Work Phone: [facility] Start: 06-06-2022 End: 06-06-[address] Martina Lal Work Phone: [facility] Work Phone: Start: 06-06-2022 End: 06-06-[address] [facility] Start: 06-06-2022 End: 06-06-2022 Dr. Martina Lal Work Phone: [facility] Start: 06-04-2022 End: 06-04-[address] Martina Lal Work Phone: [facility] Start: 06-04-2022 End: 06-04-2022 Dr. Martina Lal Work Phone: [facility] Start: 06-04-2022 Non-patient / Non-visit Dr. Pascual Lal Work Phone: [facility] Start: 06-04-2022 Dr. Martina perera Work Phone: [facility] Start: 05-30-2022 Non-patient / Non-visit Dr. Pascual Lal Work Phone: [facility] Start: 05-30-2022 Dr. Martina perera Work Phone: [facility] Start: 05-27-2022 Non-patient / Non-visit Dr. Pascual Lal Work Phone: [facility] Start: 05-27-2022 Dr. Martina perera Work Phone: [facility] Start: 05-23-2022 End: 06-06-2022 Evaluation and management of inpatient Dr. Martina Lal [facility] Start: 05-23-2022 End: 06-06-2022 Dr. Martina Lal [facility] Start: 05-23-2022 Non-patient / Non-visit Dr. Pascual Lal Work Phone: [facility] Start: 05-23-2022 Dr. Martina perera Work Phone: [facility] Start: 05-23-2022 Non-patient / Non-visit Dr. Pascual Lal Work Phone: [facility] Start: 05-23-2022 Dr. Martina perera Work Phone: [facility] Start: 05-22-2022 Non-patient / Non-visit Dr. Pascual Lal Work Phone: [facility] Start: 05-22-2022 Dr. Martina perera Work Phone: [facility] Start: 05-22-2022 Non-patient / Non-visit Dr. Pascual Lal Work Phone: [facility] Start: 05-22-2022 Dr. Martina perera Work Phone: [facility] Start: 05-21-2022 Non-patient / Non-visit Dr. Pascual Lal Work Phone: [facility] Start: 05-21-2022 Dr. Martina perera Work Phone: [facility] Start: 05-21-2022 Non-patient / Non-visit Dr. Pascual Lal Work Phone: [facility] Start: 05-21-2022 Dr. Martina perera Work Phone: [facility] Start: 05-20-2022 Non-patient / Non-visit Dr. Pascual Lal Work Phone: [facility] Start: 05-20-2022 Dr. Martina perera Work Phone: [facility] Start: 05-20-2022 Non-patient / Non-visit Dr. Pascual Lal Work Phone: [facility] Start: 05-20-2022 End: 05-23-2022 Dr[facility] Start: 05-20-2022 End: 05-23-2022 Evaluation and management of inpatient Dr. Martina Lal [facility] Start: 05-18-2022 Non-patient / Non-visit Dr. Pascual Lal Work Phone: [facility] Start: 05-18-2022 Dr. Martina perera Work Phone: [facility] Start: 05-18-2022 Non-patient / Non-visit Dr. Pascual Lal Work Phone: [facility] Start: 05-18-2022 Dr. Martina perera Work Phone: [facility] Start: 05-17-2022 Non-patient / Non-visit Dr. Pascual Lal Work Phone: [facility] Start: 05-17-2022 Dr. Martina perera Work Phone: [facility] Start: 05-17-2022 Non-patient / Non-visit Dr. Pascual Lal Work Phone: [facility] Start: 05-17-2022 Dr. Martina perera Work Phone: [facility] Start: 05-16-2022 Non-patient / Non-visit Dr. Pascual Lal Work Phone: [facility] Start: 05-16-2022 Dr. Martina perera Work Phone: [facility] Start: 05-16-2022 Non-patient / Non-visit Dr. Pascual Lal Work Phone: [facility] Start: 05-16-2022 Dr. Martina perera Work Phone: [facility] Start: 05-15-2022 End: 05-18-2022 Evaluation and management of inpatient Dr. Martina Lal Work Phone: [facility] 3 Start: 05-15-2022 Non-patient / Non-visit Dr. Pascual Lal Work Phone: [facility] Start: 05-15-2022 End: 05-18-2022 Dr. Martina Lal Work Phone: [facility] Start: 05-13-2022 End: 05-13-[address] Martina Lal Work Phone: [facility] Start: 05-13-2022 End: 05-13-2022 Dr. Martina Lal Work Phone: [facility] Start: 05-10-2022 Review Martina patel DO Work Phone: [facility] Start: 05-10-2022 End: 05-10-2022 Office outpatient visit 15 minutes Martina Lal DO Work Phone: [facility] Start: 05-09-2022 End: 05-09-2022 Annotation/Addendum Martina Lal DO Work Phone: [facility] Start: 05-08-2022 End: 05-08-[address] Martina Lal Work Phone: [facility] Start: 05-08-2022 End: 05-08-2022 Dr. Martina Lal Work Phone: [facility] Start: 05-06-2022 End: 05-06-[address] Martina Lal Work Phone: [facility] Work Phone: Start: 05-06-2022 End: 05-06-[address] Martina Lal Work Phone: [facility] Start: 05-06-2022 End: 05-06-2022 Dr. Martina Lal Work Phone: [facility] Start: 04-30-2022 Non-patient / Non-visit Dr. Pascual Lal Work Phone: [facility] Start: 04-30-2022 End: 04-30-2022 Admission to same day surgery center Dr. Martina Lal [facility] Start: 04-30-2022 End: 04-30-2022 Dr. Martina Lal [facility] Start: 04-25-2022 End: 04-25-[address] Martina Lal Work Phone: [facility] Work Phone: Start: 04-25-2022 End: 04-25-[address] Martina Lal Work Phone: [facility]-Outpatient Bone Densitometry Start: 04-25-2022 End: 04-25-2022 Dr. Martina Lal Work Phone: [facility] Start: 04-25-2022 Non-patient / Non-visit Dr. Pascual Lal Work Phone: [facility] Start: 04-25-2022 Dr. Martina perera Work Phone: [facility] Start: 04-19-2022 End: 04-19-2022 Office outpatient visit 15 minutes Martina Lal DO Work Phone: [facility] Start: 04-18-2022 End: 04-18-2022 Annotation/Addendum Martina Lal DO Work Phone: [facility] Start: 04-15-2022 End: 04-15-2022 Patient encounter procedure Martina Lal DO Work Phone: [facility] Start: 04-15-2022 End: 04-15-[address] Martina Lal Work Phone: [facility] Start: 04-15-2022 End: 04-15-2022 Dr. Martina Lal Work Phone: [facility] Start: 04-09-2022 End: 04-09-[address] Martina Lal Work Phone: [facility] Start: 04-09-2022 End: 04-09-[address] Martina Lal Work Phone: [facility] Work Phone: Start: 04-09-2022 End: 04-09-[address] Martina Lal Work Phone: [facility]-Laboratory, Specimen Start: 03-29-2022 End: 03-29-[address] Martina Lal Work Phone: [facility] Work Phone: Start: 03-29-2022 End: 03-29-[address] Martina Lal Work Phone: [facility]patient Pavilion Ultrasound Start: 03-27-2022 End: 03-27-[address] Martina Lal Work Phone: [facility] Work Phone: Start: 03-27-2022 End: 03-27-[address] Martina Lal Work Phone: [facility]-Outpatient Breast Imaging Start: 03-20-2022 End: 03-20-2022 Annotation/Addendum Martina Lal DO Work Phone: [facility] Start: 03-18-2022 End: 03-18-[address] Martina Lal Work Phone: [facility] Work Phone: Start: 03-18-2022 End: 03-18-[address] Martina Lal Work Phone: [facility]-Radiology, [facility] Start: 03-18-2022 End: 03-18-[address] Martina Lal Work Phone: [facility] Start: 03-14-2022 End: 03-15-2022 Office [...] encounter procedure Dr. Martina Lal Work Phone: [facility] Start: 02-22-2022 Review Martina Thorpeo n DO Work Phone: [facility] Start: 02-18-2022 End: 02-18-[address] Martina Lal Work Phone: [facility] Start: 02-18-2022 End: 02-18-2022 Office outpatient visit 25 minutes Martina Lukasz DO Work Phone: [facility] Start: 12-31-2021 End: 12-31-2021 Office outpatient visit 25 minutes Martina Lukasz DO Work Phone: [facility] Start: 12-31-2021 Review Martina Fearo n DO Work Phone: [facility] Start: 12-19-2021 End: 12-19-2021 Lab Order Martina Lukasz DO Work Phone: [facility] Start: 11-09-2021 End: 11-09-[address] Martina Lal Work Phone: [facility]-Pulmonary Medicine [facility] Start: 10-25-2021 End: 10-25-2021 Phone Encounter Martina Lukasz DO Work Phone: [facility] Start: 10-23-2021 End: 10-23-[address] Martina Lal Work Phone: [facility]-Sleep Lab Start: 10-17-2021 End: 10-17-2021 Office outpatient visit 25 minutes Martina Lukasz DO Work Phone: [facility] Start: 10-12-2021 Non-patient / Non-visit Dr. Pascual Lal Work Phone: [facility] Start: 10-12-2021 End: 10-12-[address] Martina Lal Work Phone: [facility]-Cardiovascular Services Start: 10-10-2021 End: 10-10-2021 Office outpatient [...] encounter procedure Dr. Martina Lal Work Phone: [facility]-Laboratory, Specimen Start: 08-10-2021 End: 08-10-2021 Office outpatient visit 15 minutes Martina Lukasz DO Work Phone: [facility] Start: 08-09-2021 End: 08-09-2021 Office outpatient visit 15 minutes Martina Lukasz DO Work Phone: [facility] Start: 08-09-2021 Review Martina Maurilioo n DO Work Phone: [facility] Start: 07-10-2021 End: 07-10-2021 Annotation/Addendum Martinastew Lal DO Work Phone: [facility] Start: 05-31-2021 End: 05-31-2021 Lab Order Martina Lal DO Work Phone: [...] 12-13-2020 Office outpatient visit 15 minutes Nicolasa Aravind UNDERCOAT SPRAYER Work Phone: [facility] Start: 12-13-2020 Review Nicolasa Nazario UNDERCOAT SPRAYER Work Phone: [facility] Start: 09-17-2020 End: 09-17-2020 Annotation/Addendum Nicolasa Nazario [facility] Start: 09-15-2020 End: 09-15-2020 Office outpatient new 45 minutes Nicolasa Nazario [facility] Start: 01-27-2018 End: 01-27-2018 Ambulatory CELIO DPM [facility] Procedures Date Procedure Procedure Detail Performing Clinician Start: 01-12-2025 Cardiovascular stress test using pharmacologic stress agent Dr. Martina Lal DO Work Phone: Start: 12-24-2024 X-ray of chest, PA and lateral views Dr. Martina Lal DO Work Phone: Start: 10-12-2024 Serum inorganic phosphate measurement Dr. Martina Lal DO Work Phone: Start: 10-12-2024 Urine microalbumin/creatinine ratio measurement Dr. Martina Lal DO Work Phone: Comment on above: Previous reported result: 404.6 mg/g CRE Edited by: JUAN MANUEL on 01/06/25:0800 AMENDED REPORT 01/06/25 0800 MALB:CREAT previously reported as: 404.6 mg/g CRE Start: 10-12-2024 Urnls dip stick/tablet reagent auto [...] 04-14-2023 MR/BMS.BVS Procedure Note: See Note; NOTES: [facility] [address] [place], [place] [address] OFFICE VISIT Date of Service: 04/08/23 MR#: [id number] Acct: [id number] Name: DEBBIE MIRELES Rep #: [id number] : 1935 Provider: Louise Clements rn, PA Age/Sex: 87/F Location: BMS.BVS Status: Signed Intake Vital Signs 03/03/23 13:39 [...] 81 mg chewable tablet 81 mg PO .[facility] 03/03/23 [History Confirmed 04/08/23] clonidine 0.1 mg/24 hr weekly transdermal patch ([id number]) 1 patch transdermal QWEEK #4 ea 03/03/23 [...] artery stenosis. She is referred from the [facility]. She is accompanied to the appointment today [...] distress Orientation: alert, awake and oriented x3 HENMT Head: normocephalic and atraumatic Ears: hearing grossly [...] (if applicable) Willy Trimble MD CC: Martina Lukasz DO Work Phone: Start: 03-11-2023 End: 03-11-2023 Carotid Duplex Ultrasound Procedure Note: See Note; NOTES: [facility] [address] [place] [address] Carotid Duplex Ultrasound 03/11/23 1232 MR#: [id number] Acct: [id number] Name: DEBBIE MIRELES Rep #: [id number] : 1935 87 From: Willy Trimble MD Attending Dr: Dr. Angely Carrizales MD Status: REG [facility] Ordering Dr: Angely Carrizales MD Date: 03/11/23 Location: [facility] Sex: F C Admitted: Reason [...] the left vertebral artery. Procedure Carotid Duplex 94935. This is a Carotid Duplex examination using B-mode, color flow and specral Doppler. The exam was diagnostic. Exam performed in department. Prelim called to the . VL/Carotid Duplex Ultrasound Interpretation Summary Mild (<50%) stenosis right extracranial internal carotid. Severe (>70%) stenosis left extracranial internal carotid. Patent and antegrade vertebrals bilaterally. Ordering Physician: Angely Carrizales Performed By: Logan Pro, RVT 03/11/23 172 Date Willy Trimble MD CC: Dr. Angely Carrizales MD; Dr. Martina Lal DO Date Dictated: 03/11/23 1232 Date Transcribed: 03/11/231724 Forging Press Setter Up: Signed Martina Lal DO Work Phone: Start: 03-03-2023 End: 03-03-2023 Cardiology Visit Report Procedure Note: See Note; NOTES: [facility] [address] [place] [address] OFFICE VISIT Date of Service: 03/03/23 MR#: [id number] Acct: [id number] Name: DEBBIE MIRELES Rep #: [id number] : 1935 Provider: Dr. Angely Carrizales MD Age/Sex: 87/F Location: [facility] Status: Signed [facility] History of Present Illness Details: This patient [...] Reasons: 6 m fu PREV PFM PT [place] Operator Required: No Accompanied by: Self Is patient [...] 81 mg chewable tablet 81 mg PO .[facility] 03/03/23 [History Confirmed 03/03/23] grape seed extract [...] Visit Report Procedure Note: See Note; NOTES: [facility] Medicine of [address] [place] [address] OFFICE VISIT Date of Service: 12/02/22 MR#: [id number] Acct: [id number] Name: DEBBIE MIRELES Rep #: [id number] : 1935 Provider: Dr. Tk Varela MD Age/Sex: 87/F Location: [facility] Status: Signed Assessment and Plan Assessment and [...] therapy. Plan Details Follow Up: 6 Months ([facility]) HPI 3 M FU [...] 3 M FU Chief Complaint: adrenal mass [place] Operator Required: No DME Vendor: pap-- [employer] Accompanied by: Self Is patient in pain?: [...] 30 min apart 09/04/22 [History Confirmed 12/02/22] PFSH Medical History Arthritis Bilateral carotid artery [...] Visit Report Procedure Note: See Note; NOTES: [facility] [address] [place] [address] OFFICE VISIT Date of Service: 09/10/22 MR#: [id number] Acct: [id number] Name: DEBBIE MIRELES Rep #: [id number] : 1935 Provider: ERIKA Mcdaniels Age/Sex: 87/F Location: [facility] Status: Signed Assessment and Plan Assessment and [...] Varela. Plan Details Follow Up: 6 Months ([facility]) HPI CPAP Chief Complaint: compliace HPI Comments [...] Visit Reasons: CPAP Chief Complaint: adrenal mass [place] Operator Required: No DME Vendor: [employer] Accompanied by: Self Is patient in pain?: [...] 30 min apart 09/04/22 [History Confirmed 09/10/22] [facility] Medical History Arthritis Bilateral carotid artery stenosis [...] Visit Report Procedure Note: See Note; NOTES: [facility] [address] [place] [address]. [address] [place] [address] OFFICE VISIT Date of Service: 09/04/22 MR#: [id number] Acct: [id number] Name: DEBBIE MIRELES Rep #: [id number] : 1935 Provider: ERIKA perez Age/Sex: 87/F Location: [facility] Status: Signed HPI HPI History of Present Illness Details: DEBBIE MIRELES, [...] air Intake Visit Reasons: 3 M FU [place] Operator Required: No Is patient in pain?: No [...] 30 min apart 09/04/22 [History Confirmed 09/04/22] PFSH Medical History Arthritis Bilateral carotid artery [...] I65.23 09/05/22 1742 <Electronically signed by Rama ROMEC> Date Rama JAMES Cosigner Signature: Date (if applicable) CC: Dr. Martina Lal, DO Martina Lal DO Work Phone: Start: 09-02-2022 End: 09-03-2022 Endocrinology Visit Report Procedure Note: See Note; NOTES: [facility] [address] [place] [address] OFFICE VISIT Date of Service: 09/02/22 MR#: [id number] Acct: [id number] Name: DEBBIE MIRELES Rep #: [id number] : 1935 Provider: Rodríguez Jiang Age/Sex: 87/F Location: [facility] Status: Signed Intake Vital Signs 07/02/22 12:59 [...] Visit Reasons: Adrenal Chief Complaint: adrenal mass [place] Operator Required: No Accompanied by: Daughter Is patient in pain?: No Allergies morphine Adverse Reaction (Intermediate, Verified 09/02/22 13:27) mental status change meperidine HCl [From Demerol] Adverse Reaction (Mild, Verified 09/02/22 13:27) mental status change [facility] Medical History Arthritis Bilateral carotid artery stenosis [...] obese Orientation: alert, awake and oriented x3 HENLA Head: normal to inspection Nose: external nose [...] Visit Report Procedure Note: See Note; NOTES: [facility] of [place] [address] [place] [address] OFFICE VISIT Date of Service: 07/18/22 MR#: [id number] Acct: [id number] Name: DEBBIE MIRELES Rep #: [id number] : 1935 Provider: ERIKA Mcdaniels Age/Sex: 86/F Location: [facility] Status: Signed Assessment and Plan Assessment and [...] Visit Reasons: ABDI Chief Complaint: dizzy, weak [place] Operator Required: No Accompanied by: Daughter Is patient [...] DAILY #30 tabs 07/17/22 [Rx Confirmed 07/18/22] [facility] Medical History Arthritis Bilateral carotid artery stenosis [...] 07/18/22 1221 <Electronically signed by Zelda Mcdaniels SECTION CHIEF SECTION CHIEF-C> Date Zelda Mcdaniels SECTION CHIEF SECTION CHIEF-C Cosigner Signature: Date (if applicable) CC: Dr. Martina Lal, DO Martina Lal DO Work Phone: Start: 07-13-2022 End: 07-13-2022 Chest 1 View (Portable) Procedure Note: See Note; NOTES: [facility] Services [address] [place] [address] Chest 1 View (Portable) MR#: [id number] Acct: [id number] Name: DEBBIE MIRELES Rep #: [id number] : 1935 F 86 From: Justyn Chi PCP: Dr. Martina Lal, Status: REG ER Study: Chest 1 View (Portable) Date of Exam: 07/13/22 Exam# [id number] Ordering Dr: Anthony Davila MD INDICATION: weakness [...] Anthony Davila MD; Dr. Martina Lal DO Forging Press Setter Up: Signed Martina Lal DO Work Phone: Start: 07-13-2022 Plain chest X-ray Dr. Martina Lal Work Phone: Start: 07-13-2022 End: 07-14-2022 Emergency Department Summary Procedure Note: See Note; NOTES: [facility] Medical Records Department [address] [place] [address] Emergency Department Summary 07/13/22 MR#: [id number] Acct: [id number] Name: DEBBIE MIRELES Rep #: [id number] : 1935 86 From: Anthony Davila MD [...] she just feels so weak and nauseated. [facility] Medical History Abnormal cardiac enzyme level Ambulates [...] % (Auto) 51.9 Lymph % (Auto) 36.5 [place] % (Auto) 7.9 Eos % (Auto) 2.7 [...] Clarity Clear Urine pH 7.0 Ur Specific [place] 1.005 Urine Protein Negative Urine Glucose (UA) [...] (Auto) Neut % (Auto) Lymph % (Auto) [place] % (Auto) Eos % (Auto) Baso % [...] Color Urine Clarity Urine pH Ur Specific [place] Urine Protein Urine Glucose (UA) Urine Ketones [...] Justyn Mandujano MD at 21:48 EST , Chest X-Ray 07/13/22 21:10 IMPRESSION: 1. LEFT lower lobe atelectasis versus infiltrate with pleural thickening and small LEFT pleural effusion. 2. RIGHT lung is clear. 3. No congestive failure. Electronically Signed: Justyn Mandujano MD at 21:36 EST , Rhythm Strip Rhythm Strip: Sinus Rhythm Rate: 85 Ectopy: None EKG Initial EKG: Attestation: I personally reviewed and interpreted this EKG as follows: Interpretation: Sinus Rhythm, No Acute Injury Pattern and AV Block (1st deg) Discharge Plan Dx/Rx/DC Orders Clinical Impression: Debility, Chronic kidney disease, stage 3a, Left adrenal mass, Hypercalcemia, Prerenal azotemia Disposition Disposition: Acute Care Hospital [facility] What to do if you have Problems For any increased pain, shortness of breath, bleeding, nausea or vomiting, chest pain, or any unexpected problems, contact your Primary Care Provider. Call [facility] ([phone]) or report to the closest Emergency Room. Call 911 if necessary. 07/14/22 0026 <Electronically signed by Anthony Davila MD> Cosigner Signature (if applicable): CC: Dr. Martina Lal, DO Signed Martina Lal DO Work Phone: Start: 07-13-2022 End: 07-13-2022 Abdomen/Pelvis without Cont Procedure Note: See Note; NOTES: [facility] Services [address] [place] [address] Abdomen/Pelvis without Cont MR#: [id number] Acct: [id number] Name: DEBBIE MIRELES Rep #: [id number] : 1935 F 86 From: Justyn Chi PCP: Dr. Martina Lal, DO Status: REG ER Study: Abdomen/Pelvis without Cont Date of Exam: 06/21 11/09 Exam# [id number] Ordering Dr: Anthony Davila MD INDICATION: llq [...] Anthony Davila MD; Dr. Martina Lal DO Forging Press Setter Up: Signed Martina Lal DO Work Phone: Start: 07-13-2022 CT of abdomen and pelvis without contrast Dr. Martina Lal Work Phone: Start: 07-10-2022 End: 07-12-2022 Cardiology Visit Report Procedure Note: See Note; NOTES: [facility] [address] [place] [address] OFFICE VISIT Date of Service: 07/10/22 MR#: [id number] Acct: [id number] Name: DEBBIE MIRELES Rep #: [id number] : 1935 Provider: ERIKA perez Age/Sex: 86/F Location: [facility] Status: Signed [facility] History of Present Illness Details: DEBBIE [...] (%) 97 Intake Visit Reasons: s/p hosp 07-07 [place] Operator Required: No Is patient in pain?: No [...] 07/10/22 [Rx Confirmed 07/10/22] PFSH Medical History Abnormal cardiac enzyme level Ambulates [...] 1150 <Electronically signed by Rama Camara NP SECTION CHIEF-C> Date Rama Camara NP SECTION CHIEF-C Cosigner Signature: Date (if applicable) CC: DO Martina Swan DO Work Phone: Start: 07-02-2022 End: 07-02-2022 Chest 1 View (Portable) Procedure Note: See Note; NOTES: [facility] Services [address] [place] [address] Chest 1 View (Portable) MR#: [id number] Acct: [id number] Name: DEBBIE MIREELS Rep #: [id number] : 1935 F 86 From: Justyn Alcala MD PCP: Dr. Martina Lal DO Status: REG ER Study: Chest 1 View (Portable) Date of Exam: 07/02/22 Exam# [id number] Ordering Dr: Zeferino Kingsley MD STUDY: X-RAY [...] Signed: Justyn Alcala MD at 10:52 EST , CC: Dr. Zeferino Kingsley MD; Dr. Martina Lal DO Forging Press Setter Up: Signed Martina Lal DO Work Phone: Start: 07-02-2022 Plain chest X-ray Dr. Martina Lal Work Phone: Start: 07-02-2022 End: 07-02-2022 Emergency Department Summary Procedure Note: See Note; NOTES: [facility] Medical Records Department [address] [place] [address] Emergency Department Summary 07/02/22 MR#: [id number] Acct: [id number] Name: DEBBIE MIRELES Rep #: [id number] : 1935 86 From: Zeferino Kingsley MD PCP: Dr. Martina Lal DO Status:REG [...] the reported elevated blood pressure over 200. [facility] Medical History Abnormal cardiac enzyme level Ambulates [...] take Lasix as recommended also by her top loader. I added a BNP. Given her hypoxia [...] % (Auto) 57.9 Lymph % (Auto) 30.0 [place] % (Auto) 8.8 Eos % (Auto) 2.4 [...] Clarity Clear Urine pH 6.5 Ur Specific [place] 1.010 Urine Protein Negative Urine Glucose (UA) [...] Signed: Justyn Alcala MD at 10:52 EST , Discharge Plan Dx/Rx/DC Orders Clinical Impression: Labile blood pressure, Hypoxia, Shakiness, Nausea Disposition Disposition: Acute Care Hospital [facility] What to do if you have Problems For any increased pain, shortness of breath, bleeding, nausea or vomiting, chest pain, or any unexpected problems, contact your Primary Care Provider. Call [facility] ([phone]) or report to the closest Emergency Room. Call 911 if necessary. 07/02/22 1144 <Electronically signed by Zeferino Kingsley MD> Cosigner Signature (if applicable): CC: Dr. Martina Lal, DO Signed Martina Lal DO Work Phone: Start: 06-18-2022 End: 06-18-2022 Oncology Visit Report Procedure Note: See Note; NOTES: [facility] [address] [place], [place] [address] [address] OFFICE VISIT Date of Service: 06/18/22 1434 MR#: [id number] Acct: [id number] Name: DEBBIE MIRELES Rep #: [id number] : 1935 From: Susan Mayberry NP SECTION CHIEF -C Age/Sex: 86/F Location: [facility] Status: Signed HPI Subjective Date of Service [...] / CLONE RESULT E-Cad (ECH-6) positive CK8 (39pnvlC13) positive Calponin-1 (QX325P) negative CK5-6 (D5 1684) negative P40 (BC28) negative P53 (DO-7) positive, rare cells, weak Ki-67 (30-9) positive, low, 15% MORPHOMETRIC ANALYSIS ER (clone 6F11) >95%, strong intensity SC (clone 16/1E2) 52%, weak to moderate intensity Her-2Neu (clone CB11) 0 April 30, 2022 right partial mastectomy with sentinel lymph node biopsy: MICROSCOPIC DIAGNOSIS A. Right axillary sentinel lymph nodes, biopsy: Two out of two lymph nodes, negative for carcinoma. B. Right breast mass, lumpectomy: Invasive ductal (mucinous) carcinoma. COMMENT A. Immunohistochemistry ([id number]) supports the above diagnosis. INVASIVE BREAST CANCER SUMMARY: Procedure - excision with wire guidance Specimen: Type - partial breast Size ??? 8 x 5 x 4 cm Laterality ??? right breast Tumor: Site ??? not specified Size ??? 2.5 x 2 x 1.5 cm Histologic type - invasive ductal (mucinous) carcinoma. Focality - single focus Histologic Grade ([place] grade): Glandular/tubular differentiation - score 2 Nuclear [...] - previously performed on section of tumor (K91-8426 / JQ14-9770). ER ??? positive (>95%, strong intensity) SC - positive ( 52%, weak to moderate [...] and adult son for an education visit. [facility] Medical History (Updated 06/18/22 @ 17:26 by Susan Mayberry SECTION CHIEF, SECTION CHIEF-C) Abnormal cardiac enzyme level Ambulates with cane [...] 1 in 5 ft 1 in Intake [place] Operator Required: No Accompanied by: Daughter Is patient in pain?: No Allergies morphine Adverse Reaction (Intermediate, Verified 06/18/22 14:43) mental status change meperidine HCl [From Demerol] Adverse Reaction (Mild, Verified 06/18/22 14:43) mental status change Medications latanoprost 0.005 % eye drops (Xalatan) 1 drp EACH EYE QHS Cataracts/Dry eye 07/29/14 [History Confirmed 06/18/22] omega-3 [...] right breast ER positive (over 95% strong) SC positive (52% weak) HER2/lc negative (0) Ki-67 [...] Visit Report Procedure Note: See Note; NOTES: [facility] [address] [place] [address] [place] [address] OFFICE VISIT Date of Service: 06/11/22 1439 MR#: [id number] Acct: [id number] Name: DEBBIE MIRELES Rep #: [id number] : 1935 From: Socorro Ivan MD Age/Sex: 86/F Location: [facility] Status: Signed HPI Subjective Date of Service [...] / CLONE RESULT E-Cad (ECH-6) positive CK8 (64fdsuX28) positive Calponin-1 (XF162X) negative CK5-6 (D5 1684) negative P40 (BC28) negative P53 (DO-7) positive, rare cells, weak Ki-67 (30-9) positive, low, 15% MORPHOMETRIC ANALYSIS ER (clone 6F11) >95%, strong intensity SC (clone 16/1E2) 52%, weak to moderate intensity Her-2Neu (clone CB11) 0 April 30, 2022 right partial mastectomy with sentinel lymph node biopsy: MICROSCOPIC DIAGNOSIS A. Right axillary sentinel lymph nodes, biopsy: Two out of two lymph nodes, negative for carcinoma. B. Right breast mass, lumpectomy: Invasive ductal (mucinous) carcinoma. COMMENT A. Immunohistochemistry ([id number]) supports the above diagnosis. INVASIVE BREAST CANCER SUMMARY: Procedure - excision with wire guidance Specimen: Type - partial breast Size ??? 8 x 5 x 4 cm Laterality ??? right breast Tumor: Site ??? not specified Size ??? 2.5 x 2 x 1.5 cm Histologic type - invasive ductal (mucinous) carcinoma. Focality - single focus Histologic Grade ([place] grade): Glandular/tubular differentiation - score 2 Nuclear [...] - previously performed on section of tumor (T29-8865 / [id number]). ER ??? positive (>95%, strong intensity) SC - positive ( 52%, weak to moderate [...] consistent with abscess.??? Nonstandard communication protocol initiated. [facility] Medical History (Updated 06/11/22 @ 15:55 by [...] no focal motor deficits Coordination / Balance: vhfpep-uz-zxmz test normal Speech: speech normal Gait (Neuro): [...] right breast ER positive (over 95% strong) SC positive (52% weak) HER2/lc negative (0) Ki-67 [...] for follow-up in winter) Socorro Ivan MD Ticket Speculator, [facility] Divisions of Medical Oncology Hematology Department of Internal Medicine [place] [address] This note was generated using a voice [...] Visit Report Procedure Note: See Note; NOTES: [facility] [address] [place], [place] [address]e. [address] [place] [address] OFFICE VISIT Date of Service: 06/11/22 MR#: [id number] Acct: [id number] Name: DEBBIE MIRELES Rep #: [id number] : 1935 Provider: YAW stock Age/Sex: 86/F Location: [facility] Status: Signed Intake Vital Signs 06/04/22 14:01 [...] Global Post Op Diagnoses Breast abscess N61.1 [facility] Medical History (Updated 06/04/22 @ 14:16 by Rama Camara NP, SECTION CHIEF-C) Abnormal cardiac enzyme level Ambulates with cane [...] Acute Plan: No further follow-up needed 06/11/22 3486 <Electronically signed by Adeola WASHINGTON PA-C> Date Adeola WASHINGTON PA-C Cosigner Signature: Date (if applicable) CC: DO Martina Swan DO Work Phone: Start: 06-06-2022 End: 06-06-2022 Renal Artery Duplex Ultrasound Procedure Note: See Note; NOTES: [facility] [address] [place] [address] Renal Artery Duplex Ultrasound 06/06/22 0904 MR#: [id number] Acct: [id number] Name: DEBBIE MIRELES Rep #: [id number] : 1935 86 From: Willy Trimble MD Attending Dr: Dr. Martina Lal DO Status: R EG CLI Ordering Dr: Martina Lal DO Date: 06/06/22 [...] size. Ordering Physician: Martina Lal Referring Physician: Martian Lal Performed By: George Rader, T 06/06/221211 Date Willy Trimble MD CC: Dr. Martina Lal DO Date Dictated: 06/06/2204 Date Transcribed: 06/06/221211 Forging Press Setter Up: Nighat Lal DO Work Phone: Start: 06-05-2022 Diagnostic radiography of abdomen Dr. Martina Lal Work Phone: Start: 06-04-2022 End: 06-12-2022 Cardiology Visit Report Procedure Note: See Note; NOTES: [facility] [address] [place], [place] [address] OFFICE VISIT Date of Service: 06/04/22 MR#: [id number] Acct: [id number] Name: DEBBIE MIRELES Rep #: [id number] : 1935 Provider: ERIKA perez Age/Sex: 86/F Location: [facility] Status: Signed HPI HPI History of Present Illness Details: DEBBIE MIRELES, [...] 96 Intake Visit Reasons: 2 wk fu/CHF [place] Operator Required: No Is patient in pain?: No [...] mg PO Q4H 06/11/22 [History Confirmed 06/11/22] [facility] Medical History Abnormal cardiac enzyme [...] updated, as necessary. Follow Up: 3 Months (SECTION CHIEF/PA) 12 Months (PFM) Coding Level of Care [...] apnea) G47.33 Bilateral carotid artery stenosis I65.23 06/12/222205 <Electronically signed by Rama Camara NP SECTION CHIEF-C> Date Rama Camara NP SECTION CHIEF-C Cosigner Signature: Date (if applicable) CC: Dr. Martina Lal, DO Martina Lal DO Work Phone: Start: 05-19-2022 End: 05-23-2022 Chest 1 View (Portable) Procedure Note: See Note; NOTES: [facility] [address] [place] [address] Chest 1 View (Portable) MR#: [id number] Acct: [id number] Name: DEBBIE MIRELES Rep #: [id number] : 1935 F 86 From: Peyman Vaca MD PCP: Dr. Martina Lal DO Status: REG ER Study: Chest 1 View (Portable) Date of Exam: 05/19/22 Exam# [id number] Ordering Dr: Lisa Mariscal DO EXAM: XR CHEST, 1 VIEW CLINICAL INDICATION: dyspnea TECHNIQUE: Frontal view of the chest. This report was created using Flowbox report generation technology. COMPARISON: None. FINDINGS: LUNGS [...] Signed: Peyman Vaca MD at 23:13 EDT Reading Location ID and State: [facility] / [place] Tel , Service support , CC: Dr. Martina Lal DO; Dr. Lisa Mariscal DO Forging Press Setter Up: Signed Martina Lal DO Work Phone: Start: 05-19-2022 Plain chest X-ray Dr. Martina Lal Work Phone: Start: 05-17-2022 Pulmonary ventilation perfusion study Dr. Martina Lal Work Phone: Start: 05-15-2022 Incision and drainage of abscess Dr. Martina Lal Work Phone: Start: 05-15-2022 End: 05-15-2022 Consultation - Surgical Procedure Note: See Note; NOTES: [facility] Records Department [address] [place] [address] Consultation - Surgical 05/15/22 0007 MR#: [id number] Acct: [id number] Name: DEBBIE MIRELES Rep #: [id number] : 1935 86 From: Felice Waller MD [...] urinalysis evidence of probable urinary tract infection. [facility] Medical History Ambulates with cane [...] HTN 06/26/18 [History Last Taken 09/25/18] Cardio [place] Healthy 1 cap PO DAILY SUPPLEMENT 05/22/20 [...] bandage. Lab / Micro Data Result Diagrams: 10/25/22 22:02 05/14/22 22:02 Labs: Laboratory Results - [...] Clarity Clear, Urine pH 7.0, Ur Specific [place] 1.010, Urine Protein 30 H, Urine Glucose [...] Hao Yan MD at 23:53 EDT , 05/15/22 0021 <Electronically signed by eFlice Waller MD> Cosigner Signature (if applicable): CC: Dr. Martina Lal DO Signed Martina Lal DO Work Phone: Start: 05-14-2022 End: 05-23-2022 Chest without Contrast Procedure Note: See Note; NOTES: [facility] [address] [place] [address] Chest without Contrast MR#: [id number] Acct: [id number] Name: DEBBIE MIRELES Rep #: [id number] : 1935 F 86 From: Hao tidwell MD PCP: Dr. Martina Lal DO Status: REG ER Study: Chest without Contrast Date of Exam: 05/14/22 Exam# [id number] Ordering Dr: Venkat Burnham DO We are [...] reconstruction technique. This report was created using Flowbox report generation technology. RADIATION DOSE: Total DLP: [...] Martina Lal DO; Dr. Venkat Burnham DO Forging Press Setter Up: Signed Martina Lal DO Work Phone: Start: 05-14-2022 CT of chest without contrast Dr. Martina Lal Work Phone: Start: 05-14-2022 End: 05-14-2022 Emergency Department Summary Procedure Note: See Note; NOTES: [facility] Records Department [address] [place] [address] Emergency Department Summary 05/14/22 MR#: [id number] Acct: [id number] Name: DEBBIE MIRELES Rep #: [id number] : 1935 86 From: Venkat Burnham DO [...] Michael Michel seroma status post recent drainage. [facility] Medical History Ambulates with cane Arthritis [...] HTN 06/26/18 [History Last Taken 09/25/18] Cardio [place] Healthy 1 cap PO DAILY SUPPLEMENT 05/22/20 [...] Color Urine Clarity Urine pH Ur Specific [place] Urine Protein Urine Glucose (UA) Urine Ketones [...] Clarity Clear Urine pH 7.0 Ur Specific [place] 1.010 Urine Protein 30 H Urine Glucose [...] 24 hr 25 mg PO BID Cardio [place] Healthy 1 cap PO DAILY lisinopril 20 [...] your Primary Care Provider. Call [facility] ([phone]) or report to the closest Emergency Room. Call 911 if necessary. 05/14/22 2351 <Electronically signed by Venkat Burnham DO> Cosigner Signature (if applicable): CC: Dr. Martina Lal DO Signed Martina Lal DO Work Phone: Start: 05-13-2022 End: 05-13-2022 Surgery Visit Report Procedure Note: See Note; NOTES: [facility] [address] [place], [place] [address] OFFICE VISIT Date of Service: 05/13/22 MR#: [id number] Acct: [id number] Name: DEBBIE MIRELES Rep #: [id number] : 1935 Provider: YAW stock Age/Sex: 86/F Location: [facility] Status: Signed Intake Vital Signs 04/30/22 08:00 [...] PA-C Cosigner Signature: Date (if applicable) CC: Martinamichelle Thorpeon DO Work Phone: Start: 05-08-2022 End: 05-08-2022 Surgery Visit Report Procedure Note: See Note; NOTES: [facility] [address] [place] [address]. [address] [place] [address] OFFICE VISIT Date of Service: 05/08/22 MR#: [id number] Acct: [id number] Name: DEBBIE MIRELES Rep #: [id number] : 1935 Provider: Dr. Michael calros MD Age/Sex: 86/F Location: [facility] Status: Signed Intake Vital Signs 04/30/22 08:00 Height 5 ft 1 in Intake Visit Reasons: Post op Chief Complaint: right breast cancer Allergies morphine Adverse Reaction (Intermediate, Verified 04/30/22 08:03) mental status change meperidine HCl [From Demerol] Adverse Reaction (Mild, Verified 04/30/22 08:03) mental status change [facility] Medical History (Updated 05/08/22 @ 16:00 by [...] safe at home: Yes HPI HPI HPI: Obu02-taoy-low female returns status post breast conservation surgery [...] of two lymph nodes, negative for carcinoma. AM:rg 04/30/2022 MICROSCOPIC DIAGNOSIS A. Right axillary sentinel lymph nodes, biopsy: Two out of two lymph nodes, negative for carcinoma. B. Right breast mass, lumpectomy: Invasive ductal (mucinous) carcinoma. See cancer synoptic report below. AM:stevie 05/03/2022 COMMENT A. Immunohistochemistry ([id number]) supports the above diagnosis. INVASIVE BREAST CANCER [...] score 2 Nuclear pleomorphism - score 2 [facility] DEPARTMENT OF LABORATORY SURGICAL PATHOLOGY REPORT [address], [place] [address] Page 2 of 3 The contents of this transmission are privileged, confidential and exempt from disclosure under applicable law. If you have received this information in error, call . DEBBIE MIRELES MR# [id number] Mitotic count ??? score 1 Overall grade [...] - previously performed on section of tumor (X97-3952 / EJ46-9619). ER ??? positive (>95%, strong intensity) SC - positive ( 52%, weak to moderate [...] Global Post Op Diagnoses Seroma, postoperative 05/08/22 2703 <Electronically signed by Michael Michel MD> Date Michael Michel MD Cosigner Signature: Date (if applicable) CC: Dr. Martina Lal, DO Martina Lal DO Work Phone: Start: 05-06-2022 End: 05-06-2022 Bone Scan Whole Body Procedure Note: See Note; NOTES: [facility] [address] [place] [address] Bone Scan Whole Body MR#: [id number] Acct: [id number] Name: DEBBIE MIRELES Rep #: [id number] : 1935 F 86 From: Justyn Marin PCP: Dr. Martina Lal DO Status: REG CLI Study: Bone Scan Whole Body Date of Exam: 05/06/22 Exam# [id number] Ordering Dr: Martina Lal DO CLINICAL: 86-year-old [...] 21:56 EDT Reading Location ID and State: [facility] / [place] Tel , Service support , CC: Dr. Martina Lal DO Forging Press Setter Up: Signed Martina Lal DO Work Phone: Start: 05-06-2022 Radionuclide whole body bone study Dr. Martina Lal Work Phone: Start: 04-30-2022 End: 04-30-2022 Operative Report Procedure Note: See Note; NOTES: [facility] Records Department [address] [place] [address] Operative Report 04/30/22 1053 MR#: [id number] Acct: [id number] Name: DEBBIE MIRELES Rep #: [id number] : 1935 86 From: Michael Michel MD PCP: Dr. Martina Lal, DO Status:REG [facility] Location: [place] [address] Report of Operation Date of Procedure: 04/30/22 [...] General and Local Anesthesiologist: Abida Whyte 04/30/22 1458 <Electronically signed by Michael Michel MD> Cosigner Signature (if applicable): CC: Dr. Martina Lal DO; Dr. Michael Michel MD Signed Martina Lal DO Work Phone: Start: 04-30-2022 End: 04-30-2022 Breast Biopsy Specimen Procedure Note: See Note; NOTES: [facility] [address] [place] [address] Breast Biopsy Specimen MR#: [id number] Acct: [id number] Name: DEBBIE MIRELES Jana Rep #: [id number] : 1935 F 86 From: Reid corea MD PCP: Dr. Martina Lal DO Status: [facility] Study: Breast Biopsy Specimen Date of Exam: 04/30/22 Exam# [id number] Ordering Dr: Michael Michel MD SURGICAL BREAST SPECIMEN RADIOGRAPH CLINICAL: Document presence of mass in biopsy specimen. FINDINGS: Specimen shows presence of mass. Electronically Signed: Reid Hernandez MD at 11:30 EDT Reading Location ID and State: [facility] / [place] , Service support , BI/Breast Biopsy Specimen IMPRESSION: undefined CC: Dr. Martina Lal DO; Dr. Michael Michel MD Forging Press Setter Up: Signed Michael Michel MD Work Phone: Start: 04-30-[address] Martina Lla Work Phone: Start: 04-30-2022 Breast, Lumpectomy,SN w/ Neoprobe (Right) Dr. Martina Lal Work Phone: Start: 04-30-2022 End: 04-30-2022 Lymph Node Injection Only Procedure Note: See Note; NOTES: [facility] [address] [place] [address] Lymph Node Injection Only MR#: [id number] Acct: [id number] Name: DEBBIE MIRELES Rep #: [id number] : 1935 F 86 From: Reid corea MD PCP: Dr. Martina Lal DO Status: [facility] Study: Lymph Node Injection Only Date of Exam: Exam# [id number] Ordering Dr: Michael Michel MD PROCEDURE: NUCLEAR MEDICINE Injection [place] Node - RIGHT breast(s). REASON FOR EXAM: Female, 86 years old. Right breast cancer. TECHNIQUE: [place] node localization using radionuclide methods of the [...] Martina Lal DO; Dr. Michael Michel MD Forging Press Setter Up: Signed Michael Michel MD Work Phone: Start: 04-30-2022 Radionuclide sentinel lymph node study Dr. Martina Lal Work Phone: Start: 04-30-2022 End: 04-30-2022 Discharge Instruction Procedure Note: See Note; NOTES: [facility] Records Department [address] [place] [address] Instructions for Home/Discharge Instructions 04/30/22 0726 MR#: [id number] Acct: [id number] Name: DEBBIE MIRELES Rep #: [id number] : 1935 86 From: Michael Michel MD PCP: Dr. Martina Lal DO Status:[facility] Discharge Instructions Procedure Breast Surgery Diet Discharge [...] 24 hr 25 mg PO BID Cardio [place] Healthy 1 cap PO DAILY lisinopril 20 [...] can be placed): Home, Self Care 04/30/22 9943<Electronically signed by Michael Michel MD>Michael Michel MD CC: Dr. Martina Lal DO Signed Martina Lal DO Work Phone: Start: 04-30-2022 End: 04-30-2022 History and Physical Exam Procedure Note: See Note; NOTES: [facility] Department [address] [place] [address] History Physical Exam 04/30/22 0723 MR#: [id number] Acct: [id number] Name: DEBBIE MIREELS Jana Rep #: [id number] : 1935 86 From: Michael Michel MD PCP: Dr. Martina Lal DO Status:[facility] Location: [place] [address] History and Physical Date of Admission: 04/30/22 [facility] Complaint: right breast cancer [place] Operator Required: No Is patient in pain?: No [...] PO DAILY 06/26/18 [History Confirmed 04/15/22] Cardio [place] Healthy PO DAILY 05/22/20 [History Confirmed 04/15/22] [...] 2022.??? She presents with her son and mbgesdoh-sr-jii.??? Today's appointment was a 30-minute pqsv-yj-acpm consultative appointment regarding the finding of right [...] ? RESULT E-Cad??? (ECH-6) ? positive CK8??? (93xjtqB56)??? positive Calponin-1 (JE453W) ? negative CK5-6??? (D5 1684) ? negative P40??? (BC28) ??? negative P53??? (DO-7) ? positive, rare cells, weak Ki-67??? (30-9)? positive, low, 15% ??? MORPHOMETRIC ANALYSIS? ER (clone 6F11)? >95%, strong intensity SC (clone 16/1E2) ? 52%, weak to moderate intensity Her-2Neu (clone CB11)? 0 My previous notes reflect the following Visit Reasons:???R BREAST BIRADS 4 Chief Complaint: abn breast US --right [place] Operator Required: No Is patient in pain?: No [...] PO DAILY 06/26/18 [History Confirmed 04/09/22] Cardio [place] Healthy PO DAILY 05/22/20 [History Confirmed 04/09/22] [...] biopsy of a clinically suspicious abnormality. ??? [id number] ??? Electronically Signed: Reid Hernandez MD at [...] Michael Michel M.D., F.A.C.S. Biopsy Breast Biopsy: 23283 US Guidance Procedure Time Out Time Out [...] Copy: Dr. Martina Michel M.D., F.A.C.S 04/30/22 0053 <Electronically signed by Michael Michel MD> Cosigner Signature (if applicable): CC: Dr. Martina Lal DO; Dr. Michael Michel MD Signed Martina Lal DO Work Phone: Start: 04-25-2022 End: 04-26-2022 Dexa Bone Density Study Procedure Note: See Note; NOTES: [facility] [address] [place] [address] Dexa Bone Density Study MR#: [id number] Acct: [id number] Name: CHISHAYNE PANTOJANIGina Patel Rep #: [id number] : 1935 F 86 From: Reid corea MD PCP: Dr. Martina Lal DO Status: [facility] Study: Dexa Bone Density Study Date of Exam: 04/25/22 Exam# [id number] Ordering Dr: Martina Lal DO STUDY: DUAL [...] EDT , CC: Dr. Martina Lal DO Forging Press Setter Up: Signed Martina Lal DO Work Phone: Start: 04-25-2022 Dual energy X-ray absorptiometry Dr. Martina Lal Work Phone: Start: 04-25-2022 End: 04-25-2022 Chest PA and Lateral Procedure Note: See Note; NOTES: [facility] [address] [place] [address] Chest PA and Lateral MR#: [id number] Acct: [id number] Name: DEBBIE MIRELES Rep #: [id number] : 1935 F 86 From: Baljit Lam MD PCP: Dr. Martina Lal, Status: [facility] Study: Chest PA and Lateral Date of Exam: 04/25/22 Exam# [id number] Ordering Dr: Michael Micehl MD STUDY: X-RAY CHEST REASON FOR EXAM: [...] Martina Lal DO; Dr. Michael Michel MD Forging Press Setter Up: Signed Michael Michel MD Work Phone: Start: 04-25-2022 Plain chest X-ray Dr. Martina Lal Work Phone: Start: 04-15-2022 End: 04-15-2022 Surgery Visit Report Procedure Note: See Note; NOTES: [facility] [address] [place] [address]. [address] [place] [address] OFFICE VISIT Date of Service: 04/15/22 MR#: [id number] Acct: [id number] Name: DEBBIE MIRELES Jana Rep #: [id number] : 1935 Provider: Dr. Michael carlos MD Age/Sex: 86/F Location: [facility] Status: Signed Intake Intake Visit Reasons: discuss breast path Chief Complaint: right breast cancer [place] Operator Required: No Is patient in pain?: No [...] PO DAILY 06/26/18 [History Confirmed 04/15/22] Cardio [place] Healthy PO DAILY 05/22/20 [History Confirmed 04/15/22] [...] 2022. She presents with her son and oonnbnny-pi-zmu. Today's appointment was a 30-minute cosf-xw-naur consultative appointment regarding the finding of right breast cancer. The patient states that since her injection per Dr. Alamo her back is better but not completely resolved. She does have an upcoming appointment with him. 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 ANTIBODY / CLONE RESULT E-Cad (ECH-6) positive CK8 (27qvewU45) positive Calponin-1 (MQ954Q) negative CK5-6 (D5 1684) negative P40 (BC28) negative P53 (DO-7) positive, rare cells, weak Ki-67 (30-9) positive, low, 15% MORPHOMETRIC ANALYSIS ER (clone 6F11) >95%, strong intensity SC (clone 16/1E2) 52%, weak to moderate intensity Her-2Neu (clone CB11) 0 My previous notes reflect the following Visit Reasons:???R BREAST BIRADS 4 Chief Complaint: abn breast US --right [place] Operator Required: No Is patient in pain?: No [...] PO DAILY 06/26/18 [History Confirmed 04/09/22] Cardio [place] Healthy PO DAILY 05/22/20 [History Confirmed 04/09/22] [...] biopsy of a clinically suspicious abnormality. ??? [id number] ??? Electronically Signed: Reid Hernandez MD at [...] formalin for analysis.??? No apparent complication. Michael iMchel M.D., F.A.C.S. Biopsy Breast Biopsy: 10561 US Guidance Procedure Time Out Time Out [...] Diagnoses Breast cancer, right breast C50.911 04/15/22 1407 <Electronically signed by Michael Michel MD> Date Michael Michel MD Cosigner Signature: Date (if applicable) CC: Dr. Martina Lal, DO Martina Lal DO Work Phone: Start: 04-09-2022 End: 04-09-2022 Surgery Visit Report Procedure Note: See Note; NOTES: [facility] [address] [place] [address] OFFICE VISIT Date of Service: 04/09/22 MR#: [id number] Acct: [id number] Name: DEBBIE MIRELES Rep #: [id number] : 1935 Provider: Dr. Michael carlos MD Age/Sex: 86/F Location: [facility] Status: Signed Intake Vital Signs 04/09/22 15:37 [...] 4 Chief Complaint: abn breast US --right [place] Operator Required: No Is patient in pain?: No [...] PO DAILY 06/26/18 [History Confirmed 04/09/22] Cardio [place] Healthy PO DAILY 05/22/20 [History Confirmed 04/09/22] [...] biopsy of a clinically suspicious abnormality. ??? [id number] ??? Electronically Signed: Reid Hernandez MD at [...] Michael Michel M.D., F.A.C.S. Biopsy Breast Biopsy: 06379 US Guidance Procedure Time Out Time Out [...] R92.8 CPT Codes Biopsy - Breast Biopsy: 97922 US Guidance (66937) 04/09/22 1610 <Electronically signed by Michael Michel MD> Date Michael Michel MD Cosigner Signature: Date (if applicable) CC: DO Martina Swan DO Work Phone: Start: 03-29-2022 End: 04-01-2022 Breast Limited Unilateral Procedure Note: See Note; NOTES: [facility] [address] [place] [address] Breast Limited Unilateral MR#: [id number] Acct: [id number] Name: DEBBIE MIRELES Rep #: [id number] : 1935 F 86 From: Reid corea MD PCP: Dr. Martina Lal DO Status: REG CLI Study: Breast Limited Unilateral Date of Exam: Exam# [id number] Ordering Dr: Michael Michel MD STUDY: ULTRASOUND [...] Signed: Reid Hernandez MD at 9:45 EDT Reading Location ID and State: [facility] / [place] , Service support , CC: Dr. Martina Lal DO; Dr. Michael Michel MD Forging Press Setter Up: Signed Michael Michel MD Work Phone: Start: 03-29-[address] Martina Lal Work Phone: Start: 03-27-[address] Martina Lal Work Phone: Start: 03-27-2022 End: 03-27-2022 SCRN MAMM (CAD)W/ROBINSON BILAT Procedure Note: See Note; NOTES: [facility] [address] [place] [address] SCRN MAMM (CAD)W/ROBNISON BILAT MR#: [id number] Acct: [id number] Name: DEBBIE MIRELES Rep #: [id number] : 1935 F 86 From: Reid corea MD PCP: Dr. Martina Lal DO Status: [facility] CLI Study: SCRN MAMM (CAD)W/ROBINSON BILAT Date of Exam: 02/08 Exam# [id number] Ordering Dr: Michael Michel MD MAMMOGRAPHY - [...] delay biopsy of a clinically suspicious abnormality. [id number] Electronically Signed: Reid Hernandez MD at 14:15 EDT , CC: Dr. Martina Lal DO; Dr. Michael Michel MD Forging Press Setter Up: Signed Michael Michel MD Work Phone: Start: 03-18-2022 Radiography of thoracic spine Dr. Martina Lal Work Phone: Start: 03-18-2022 End: 03-18-2022 Thoracic Spine 3 Views Procedure Note: See Note; NOTES: [facility] [address] [place] [address] Thoracic Spine 3 Views MR#: [id number] Acct: [id number] Name: DEBBIE MIRELES Rep #: [id number] : 1935 F 86 From: Peyman Chi PCP: Dr. Martina Lal DO Status: REG CLI Study: Thoracic Spine 3 Views Date of Exam: 03/18/22 Exam# [id number] Ordering Dr: Michael Michel MD STUDY: X-RAY [...] 17:45 EDT Reading Location ID and State: [facility] / [place] , Service support , CC: Dr. Martina Lal DO; Dr. Michael Michel MD Forging Press Setter Up: Signed Michael Michel MD Work Phone: Start: 03-18-2022 End: 03-18-2022 Surgery Visit Report Procedure Note: See Note; NOTES: [facility] [address] [place] [address] OFFICE VISIT Date of Service: 03/18/22 MR#: [id number] Acct: [id number] Name: DEBBIE MIRELES Rep #: [id number] : 1935 Provider: Dr. Michael carlos MD Age/Sex: 86/F Location: [facility] Status: Signed Intake Vital Signs 03/18/22 10:22 Height 5 ft 1 in Weight: 233 lb 2 oz BMI 44.0 BP 182/59 H Blood Pressure Location Rt brachial Position Sitting Respiration 18 Pulse 61 Pulse Source NIBP Temp 98 F Temp Source Temporal Pulse Oximetry (%) 95 Oxygen Delivery Method room air Intake Visit Reasons: VENTRAL HERNIA Chief Complaint: abd pain/ ventral hernia [place] Operator Required: No Is patient in pain?: Yes [...] PO DAILY 06/26/18 [History Confirmed 03/18/22] Cardio [place] Healthy PO DAILY 05/22/20 [History Confirmed 03/18/22] [...] 22:52 EDT Reading Location ID and State: [address] [place] [address] Tel [phone], Service support??? , ROS General General: No [...] acute distress Nutritional Appearance: obese morbidly obese [facility] Head: normal to inspection Chest Other: [...] M.D., F.A.C.S. 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 Martina Lal DO Status: REG CLI Study: Abdomen/Pelvis WITH Contrast Date of Exam: 03/11 Exam# [id number] Ordering Dr: Martina Lal DO STUDY: CT [...] 22:52 EDT Reading Location ID and State: [address] [place] [address] Tel [phone], Service support , CC: Dr. Martina Lal DO Forging Press Setter Up: Signed Martina Lal DO Work Phone: Start: 02-25-2022 Computed tomography of abdomen and pelvis with contrast Dr. Martina Lal Work Phone: Start: 11-09-2021 End: 04-22-2022 Pulmonary Visit Report Comments: See Note; NOTES: [facility] [address] [place], [place] [address] OFFICE VISIT Date of Service: 11/09/21 MR#: [id number] Acct: [id number] Name: DEBBIE MIRELES Rep #: [id number] : 1935 Provider: ERIKA Mcdaniels Age/Sex: 86/F Location: [facility] Status: Signed Assessment and Plan Assessment and Plan (1) ABDI (obstructive sleep apnea): Status: Acute Plan - Zelda Mcdaniels SECTION CHIEF, SECTION CHIEF-C: New. 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 She has never seen a spanish medical interpreter. She has never been prescribed an inhaler. [...] nasal canula Intake Visit Reasons: Sleep problems [place] Operator Required: No Accompanied by: Self Is patient [...] PO QDAY 05/22/20 [History Confirmed 11/09/21] Cardio [place] Healthy PO DAILY 05/22/20 [History Confirmed 11/09/21] [...] PO DAILY tab 11/09/21 [History Confirmed 11/09/21] [facility] Medical History (Updated 11/09/21 @ 16:06 by Zelda Mcdaniels SECTION CHIEF, SECTION CHIEF-C) Bilateral carotid artery stenosis Bilateral extracranial carotid [...] 1615 <Electronically signed by Zelda Mcdaniels NP SECTION CHIEF-C> Date Zelda Mcdaniels NP SECTION CHIEF-C Cosigner Signature: Date (if applicable) CC: Dr. Martina Lal, DO Martina Lal DO Work Phone: Start: 10-12-2021 End: 10-12-2021 Carotid Duplex Ultrasound Comments: See Note; NOTES: [facility] [address] [place] [address] Carotid Duplex Ultrasound 10/12/21 0949 MR#: [id number] Acct: [id number] Name: DEBBIE MIRELES Rep #: [id number] : 1935 86 From: Michael Michel MD Attending Dr: Dr. Martina Lal, Status: R EG CLI Ordering Dr: Martina [...] the left vertebral artery. Procedure Carotid Duplex 93485. This is a Carotid Duplex examination using [...] Lal Performed By: Latonia Donato RVT 10/12/21 1320 Date Michael Michel MD CC: Dr. Martina Lal DO Date Dictated: 10/12/21948 Date Transcribed: 10/12/211319 Forging Press Setter Up: Signed Martina Lal DO Work Phone: Start: 10-12-2021 End: 10-12-2021 Renal Artery Duplex Ultrasound Comments: See Note; NOTES: [facility] [address] [place] [address] Renal Artery Duplex Ultrasound 10/12/21 0904 MR#: [id number] Acct: [id number] Name: DEBBIE MIRELES Rep #: [id number] : 1935 86 From: Michael Michel MD [...] CC: Dr. Martina Lal DO Date Dictated: 10/12/21903 Date Transcribed: 10/12/21 1317 Forging Press Setter Up: Signed Martina Lal DO Work Phone: Start: 04-17-2021 End: 04-18-2021 Upper Ext Joint Only(Routine) Comments: See Note; NOTES: [facility] [address] [place] [address] Upper Ext Joint Only(Routine) MR#: [id number] Acct: [id number] Name: DEBBIE MIRELES Rep #: [id number] : 1935 F 85 From: Vaughn Chi PCP: Nicolasa Nazario SECTION CHIEF-C Status: REG CLI Study: Upper Ext Joint Only(Routine) Date of Exam: 0 04/17/21 Exam# [id number] Ordering Dr: Sanam Quesada MD STUDY: MRI [...] CC: ERIKA Nazario; Dr. Sanam Quesada MD Forging Press Setter Up: Signed Sanam Quesada Work Phone: Start: 04-04-2021 End: 04-05-2021 Shoulder min 2 Views Comments: See Note; NOTES: [facility] [address] [place] [address] Shoulder min 2 Views MR#: [id number] Acct: [id number] Name: DEBBIE MIRELES Rep #: [id number] : 1935 F 85 From: Arsenio Hyman MD PCP: ERIKA Hansen Status: REG CLI Study: Shoulder min 2 Views Date of Exam: 04/04/21 Exam# [id number] Ordering Dr: Nicolasa Nazario NP, NP-Jonn STUDY: X-RAY - LEFT SHOULDER REASON FOR [...] , Service support , CC: ERIKA Nazario Forging Press Setter Up: Signed Nicolasa Nazario UNDERCOAT SPRAYER Work Phone: Anaerobic microbial culture Dr. Martina Lal Work Phone: Anaerobic microbial culture Dr. Martina Lal Work Phone: Anaerobic microbial culture Dr. Martina Lal Work Phone: Bacteria identified in Blood by Culture Dr. Martina Lal Work Phone: Cataract extraction bilateral Turner Balderas Comment on above: 12 Cataract extraction bilateral Turner Balderas SERVOMECHANISM ASSEMBLER Comment on above: 12 Cataract extraction bilateral Diane Austin MA Comment on above: 12 Cataract extraction bilateral Keri Gravius AGILE PROJECT MANAGER Comment on above: 12 Cataract extraction bilateral Nelda Mohamud SERVOMECHANISM ASSEMBLER Comment on above: 12 Cataract extraction bilateral Nelda Mohamud SERVOMECHANISM ASSEMBLER Comment on above: 12 Cataract extraction bilateral Keri Gravius AGILE PROJECT MANAGER Comment on above: 12 Cataract extraction bilateral Keri Gravius AGILE PROJECT MANAGER Comment on above: 12 Cataract extraction bilateral Keri Gravius AGILE PROJECT MANAGER Comment on above: 12 Cataract extraction bilateral Turner Balderas SERVOMECHANISM ASSEMBLER Comment on above: 12 Cataract extraction bilateral Kayela Alton AGILE PROJECT MANAGER Comment on above: 12 Cataract extraction bilateral Kayela Daya AGILE PROJECT MANAGER Comment on above: 12 Cataract extraction bilateral Kayela Alton AGILE PROJECT MANAGER Comment on above: 12 Cataract extraction bilateral Kayela Daya AGILE PROJECT MANAGER Comment on above: 12 Cataract extraction bilateral Kayela Alton AGILE PROJECT MANAGER Comment on above: 12 Cataract extraction bilateral Kahtarina Manchak AGILE PROJECT MANAGER Comment on above: 12 Cholecystectomy Turner Balderas Comment on above: 97 Cholecystectomy Turner Balderas SERVOMECHANISM ASSEMBLER Comment on above: 97 Cholecystectomy Diane Agata y MA Comment on above: 97 Cholecystectomy Keri Gravi us AGILE PROJECT MANAGER Comment on above: 97 Cholecystectomy Nelda Coffma n SERVOMECHANISM ASSEMBLER Comment on above: 97 Cholecystectomy Nelda Coffma n SERVOMECHANISM ASSEMBLER Comment on above: 97 Cholecystectomy Keri Gravi us AGILE PROJECT MANAGER Comment on above: 97 Cholecystectomy Keri Gravi us AGILE PROJECT MANAGER Comment on above: 97 Cholecystectomy Keri Gravi us AGILE PROJECT MANAGER Comment on above: 97 Cholecystectomy Turner Balderas SERVOMECHANISM ASSEMBLER Comment on above: [address] AGILE PROJECT MANAGER Comment on above: [address] AGILE PROJECT MANAGER Comment on above: [address] AGILE PROJECT MANAGER Comment on above: [address] AGILE PROJECT MANAGER Comment on above: [address] AGILE PROJECT MANAGER Comment on above: 97 Cholecystectomy Katharina Manc hak AGILE PROJECT MANAGER Comment on above: 97 Colonoscopy Turner Balderas Comment on above: ,08,14 Colonoscopy Turner Balderas LP N Comment on above: ,,14 Colonoscopy Diane Zacarias Comment on above: ,,14 Colonoscopy Keri Gravius AGILE PROJECT MANAGER Comment on above: ,,14 Colonoscopy Nelda Mohamud L PN Comment on above: ,,14 Colonoscopy Nelda Mohamud L PN Comment on above: ,,14 Colonoscopy Keri Gravius AGILE PROJECT MANAGER Comment on above: ,,14 Colonoscopy Keri Gravius AGILE PROJECT MANAGER Comment on above: ,,14 Colonoscopy Keri Gravius AGILE PROJECT MANAGER Comment on above: ,,14 Colonoscopy Turner Balderas LP N Comment on above: ,,14 Colonoscopy Kayela Daya AGILE PROJECT MANAGER Comment on above: ,,14 Colonoscopy Kayela Alton AGILE PROJECT MANAGER Comment on above: ,,14 Colonoscopy Kayela Daya AGILE PROJECT MANAGER Comment on above: 02,,14 Colonoscopy Kayela Alton [facility] Comment on above: ,,14 Colonoscopy Kayela Daya AGILE PROJECT MANAGER Comment on above: ,,14 Colonoscopy Katharina Manchak AGILE PROJECT MANAGER Comment on above: ,,14 D&C >50yrs Turner Balderas D&C >50yrs Turner Balderas LP N D&C >50yrs Diane Austin M A D&C >50yrs Keri Gravius AGILE PROJECT MANAGER D&C >50yrs Nelda Mohamud L PN D&C >50yrs Nelda Mohamud L PN D&C >50yrs Keri Gravius AGILE PROJECT MANAGER D&C >50yrs Keri Gravius AGILE PROJECT MANAGER D&C >50yrs Keri Gravius AGILE PROJECT MANAGER D&C >50yrs Turner Balderas LP N D&C >50yrs Kayela Daya AGILE PROJECT MANAGER D&C >50yrs Kayela Alton AGILE PROJECT MANAGER D&C >50yrs Kayela Alton AGILE PROJECT MANAGER D&C >50yrs Kayela Alton AGILE PROJECT MANAGER D&C >50yrs Kayela Alton AGILE PROJECT MANAGER D&C >50yrs Katharina Abhinavchak AGILE PROJECT MANAGER Hysterectomy Turner Andrey Hysterectomy Turner Andrey LP N Hysterectomy Diane Austin M A Hysterectomy Keri Gravius AGILE PROJECT MANAGER Hysterectomy Nelda Mohamud L PN Hysterectomy Nelda Mohamud L PN Hysterectomy Keri Gravius AGILE PROJECT MANAGER Hysterectomy Keri Gravius AGILE PROJECT MANAGER Hysterectomy Keri Gravius AGILE PROJECT MANAGER Hysterectomy Turner Andrey LP N Hysterectomy Kayela Alton AGILE PROJECT MANAGER Hysterectomy Kayela Alton AGILE PROJECT MANAGER Hysterectomy Kayela Daya AGILE PROJECT MANAGER Hysterectomy Kayela Alton AGILE PROJECT MANAGER Hysterectomy Kayela Alton AGILE PROJECT MANAGER Hysterectomy Katharina Manchak AGILE PROJECT MANAGER Investigation of transfusion reaction Dr. Martina Lal Work Phone: Investigation of transfusion reaction Dr. Martina Lal Work Phone: Microbial culture, routine Dr. Martina Lal Work Phone: Microbial culture, routine Dr. Martina Lal Work Phone: Microbial culture, routine Dr. Martina Lal Work Phone: Minor knee surgery 2018-Dr. Ly Balderas Minor knee surgery 2018-Dr. Ly Balderas LPN Minor knee surgery 2018-Dr. Ly Austin CT Minor knee surgery 2018-Dr. Ly Johnson [facility] Minor knee surgery 2018-Dr. Ly Mallory [facility] Minor knee surgery 2018-Dr. Ly Mallory [facility] Minor knee surgery 2018-Dr. Ly Johnson [facility] Minor knee surgery 2018-Dr. Ly Johnson [facility] Minor knee surgery 2018-Dr. Ly Johnson [facility] Minor knee surgery 2018-Dr. Ly Balderas [facility] Minor knee surgery 2018-Dr. Ly Stapleton [facility] Minor knee surgery 2018-Dr. Ly Stapleton [facility] Minor knee surgery 2018-Dr. Ly Stapleton [facility] Minor knee surgery 2018-Dr. Ly Stapleton [facility] Minor knee surgery 2018-Dr. Ly Stapleton [facility] Minor knee surgery 2018-Dr. Ly Marion [facility] Repair of inguinal hernia Turner Balderas Respiratory [...] Treatment Date Care Activity Detail Author Start: 12-24-2024 X-ray of chest, PA and lateral views Chest PA and Lateral [facility] Start: 09-10-2023 [facility] Start: 01-31-2023 Procedure Education Eprescribed prescriptions (G8553) [facility] Work Phone: Start: 08-29-2022 Procedure Education Eprescribed prescriptions (G8553) [facility] Work Phone: Start: 08-29-2022 Provider Instructions for Treatment [facility] Work Phone: Start: 08-13-2022 Basic metabolic panel calcium total METABOLIC PANEL, BASIC (65419) [facility] Work Phone: Comment on above: Faxed to outreach Start: 08-07-2022 Basic metabolic panel calcium total METABOLIC PANEL, BASIC (70051) [facility] Work Phone: Start: 07-31-2022 Comprehensive metabolic panel METABOLIC PANEL, COMPREHENSIVE (34641) [facility] Work Phone: Start: 07-25-2022 Procedure Education Eprescribed prescriptions (G8553) [facility] Work Phone: Start: 07-25-2022 Provider Instructions for Treatment [facility] Work Phone: Start: 07-25-2022 Basic metabolic panel calcium total METABOLIC PANEL, BASIC (17967) [facility] Work Phone: Start: 07-17-[address] [facility] Start: 07-16-[address] [facility] Start: 07-16-[address] [facility] Start: 07-15-2022 Care planning and problem solving actions [facility] Start: 07-14-2022 Application of intermittent pneumatic compression device [facility] Start: 07-14-2022 Following clinical pathway protocol [facility] Start: 07-14-2022 Assessment of risk of venous thromboembolism [facility] Start: 07-14-[address] [facility] Start: 07-14-[address] [facility] Start: 07-14-2022 Inhalation therapy procedure [facility] Start: 07-14-2022 Insertion of catheter into peripheral vein [facility] Start: 07-14-2022 Introduction of urinary catheter [facility] Start: 07-14-2022 Measuring intake and output [facility] Start: 07-14-[address] [facility] Start: 07-14-2022 Providing care according to standard [facility] Start: 07-14-2022 Provision of activity privileges [facility] Start: 07-14-2022 Referral to occupational therapist [facility] Start: 07-14-[address] [facility] Start: 07-14-2022 [facility] Start: 07-14-[address] [facility] Work Phone: Start: 07-14-2022 Patient referral to dietitian [facility] Start: 07-13-[address] [facility] Start: 07-13-2022 [facility] Work Phone: Start: 07-10-2022 Basic metabolic panel calcium total Metabolic Panel, Basic (88149) [facility] Work Phone: Start: 07-10-2022 Procedure Education Eprescribed prescriptions (G8553) [facility] Work Phone: Start: 07-10-2022 Provider Instructions for Treatment [facility] Work Phone: Start: 07-07-[address] [facility] Start: 07-07-2022 [facility] Start: 07-04-[address] [facility] Start: 07-04-2022 Referral to top loader [facility] Start: 07-04-2022 Referral to gear grinding machine operator [facility] Start: 07-03-[address] [facility] Start: 07-03-2022 Following clinical pathway protocol [facility] Start: 07-02-2022 Application of intermittent pneumatic compression device [facility] Start: 07-02-2022 Care regimes management [facility] Start: 07-02-2022 Notification of physician [facility] Start: 07-02-2022 [facility] Start: 07-02-2022 Assessment of risk of venous thromboembolism [facility] Start: 07-02-2022 Inhalation therapy procedure [facility] Start: 07-02-2022 Insertion of catheter into peripheral vein [facility] Start: 07-02-2022 Measuring intake and output [facility] Start: 07-02-[address] [facility] Start: 07-02-2022 Providing care according to standard [facility] Start: 07-02-2022 Provision of activity privileges [facility] Start: 07-02-2022 Referral to occupational therapist [facility] Start: 07-02-[address] [facility] Start: 07-02-2022 [facility] Start: 07-02-2022 Following clinical pathway protocol [facility] Start: 07-02-[address] [facility] Work Phone: Start: 07-02-2022 End: 07-03-2022 [facility] Start: 07-02-[address] [facility] Start: 06-11-[address] [facility] Work Phone: Start: 06-10-2022 Blood count complete automated CBC & PLATELETS (AUTO) (89084) [facility] Work Phone: Start: 06-10-2022 Basic metabolic panel calcium total METABOLIC PANEL, BASIC (04977) [facility] Work Phone: Start: 06-10-2022 Procedure Education Eprescribed prescriptions (G8553) [facility] Work Phone: Start: 06-10-2022 Provider Instructions for Treatment [facility] Work Phone: Start: 06-09-2022 Development of care plan [facility] Start: 06-07-2022 Basic metabolic panel calcium total METABOLIC PANEL, BASIC (83813) [facility] Work Phone: Start: 06-07-2022 CBC, PLATELETS & MANUAL DIFF (63287) CBC, PLATELETS & MANUAL DIFF (19468) [facility] Work Phone: Start: 06-06-[address] [facility] Start: 06-04-2022 [facility] Start: 06-03-[address] [facility] Start: 06-03-2022 [facility] Start: 05-29-2022 Referral to contract programmer [facility] Start: 05-27-2022 [facility] Start: 05-27-2022 [facility] Start: 05-24-2022 Development of care plan [facility] Start: 05-24-2022 Developing a treatment plan [facility] Start: 05-24-2022 Referral to top loader [facility] Start: 05-23-2022 End: 05-24-2022 [facility] Start: 05-23-2022 Consultation for treatment [facility] Start: 05-23-2022 Following clinical pathway protocol [facility] Start: 05-23-[address] [facility] Start: 05-23-[address] [facility] Start: 05-23-2022 Measuring intake and output [facility] Start: 05-23-2022 Patient referral to dietitian [facility] Start: 05-23-2022 Referral to occupational therapist [facility] Start: 05-23-[address] [facility] Start: 05-23-2022 Vital signs measurements [facility] Start: 05-23-2022 Patient discharge [facility] Start: 05-22-[address] [facility] Start: 05-21-2022 Referral to gear grinding machine operator [facility] Start: 05-20-2022 Referral to top loader [facility] Start: 05-20-2022 Referral to occupational therapist [facility] Start: 05-20-[address] [facility] Start: 05-20-2022 Care regimes management [facility] Start: 05-20-2022 Ambulation without limitation [facility] Start: 05-20-2022 Assessment of risk of venous thromboembolism [facility] Start: 05-20-2022 Consultation for treatment [facility] Start: 05-20-2022 Elevation of affected extremity [facility] Start: 05-20-2022 Insertion of catheter into peripheral vein [facility] Start: 05-20-2022 Measuring intake and output [facility] Start: 05-20-2022 End: 05-20-2022 Notification of physician [facility] Start: 05-20-[address] [facility] Start: 05-20-[address] [facility] Start: 05-20-2022 Providing care according to standard [facility] Start: 05-20-2022 End: 05-20-2022 [facility] Start: 05-20-[address] [facility] Start: 05-20-2022 End: 05-20-2022 Following clinical pathway protocol [facility] Start: 05-20-2022 Patient referral to dietitian [facility] Start: 05-18-[address] [facility] Start: 05-18-[address] [facility] Start: 05-18-2022 [facility] Start: 05-17-[address] [facility] Start: 05-16-[address] [facility] Start: 05-16-2022 Inhalation therapy procedure [facility] Start: 05-15-2022 [facility] Start: 05-15-2022 Care planning and problem solving actions [facility] Start: 05-15-[address] [facility] Start: 05-15-2022 Referral to occupational therapist [facility] Start: 05-15-[address] [facility] Start: 05-15-2022 Application of intermittent pneumatic compression device [facility] Start: 05-15-2022 Assessment of risk of venous thromboembolism [facility] Start: 05-15-2022 Care regimes management [facility] Start: 05-15-2022 Consultation for treatment [facility] Start: 05-15-2022 Documentation procedure [facility] Start: 05-15-2022 Insertion of catheter into peripheral vein [facility] Start: 05-15-2022 Notification of physician [facility] Start: 05-15-2022 Providing care according to standard [facility] Start: 05-15-2022 Provision of activity privileges [facility] Start: 05-15-2022 Referral to general surgeon [facility] Start: 05-15-2022 [facility] Start: 05-15-2022 Following clinical pathway protocol [facility] Start: 05-15-[address] [facility] Start: 05-15-2022 Patient referral to dietitian [facility] Start: 05-14-2022 [facility] Work Phone: Start: 05-14-2022 End: 05-14-[address] [facility] Work Phone: Start: 05-14-2022 [facility] Work Phone: Start: 05-10-2022 Procedure Education Eprescribed prescriptions (G8553) [facility] Work Phone: Start: 05-10-2022 Provider Instructions for Treatment [facility] Work Phone: Start: 05-10-2022 Assay of aldosterone ALDOSTERONE (83477) [facility] Work Phone: Start: 05-10-2022 Assay of renin RENIN (10816) [facility] Work Phone: Start: 05-10-2022 Metanephrines METANEPHRINES - URINE (24901) [facility] Work Phone: Start: 05-10-2022 Catecholamines total urine CATECHOLAMINES TOTAL, URINE (98162) [facility] Work Phone: Start: 05-10-2022 Assay of vanillylmandelic acid urine URINE VMA (13320) [facility] Work Phone: Start: 05-09-[address] [facility] Work Phone: Start: 04-30-2022 Anesthesia radical/modified radical breast [facility] Start: 04-30-2022 Bx/exc lymph node open deep axillary node [facility] Start: 04-30-2022 Inj radioactive tracer for id of sentinel node [facility] Start: 04-30-[address] [facility] Start: 04-30-[address] [facility] Start: 04-19-2022 Provider Instructions for Treatment [facility] Work Phone: Start: 03-14-2022 Procedure Education Eprescribed prescriptions (G8553) [facility] Work Phone: Start: 03-14-2022 Provider Instructions for Treatment Reviewed Diagnostic Tests [facility] Work Phone: Start: 03-08-2022 Assay of hydroxyindolacetic acid 5-hiaa HYDROXYINDOLACET ACID 5- (79155) [facility] Work Phone: Start: 03-08-2022 Adrenocorticotropic hormone acth ACTH (71772) [facility] Work Phone: Start: 03-08-2022 Cortisol total CORTISOL TOTAL (19230) [facility] Work Phone: Start: 03-08-2022 Cortisol free CORTISOL FREE (33912) [facility] Work Phone: Start: 03-07-2022 Procedure Education Eprescribed prescriptions (G8553) [facility] Work Phone: Start: 03-07-2022 Provider Instructions for Treatment [facility] Work Phone: Start: 03-05-2022 Dehydroepiandrosterone DHEA (DEHYDROEPIANDROSTERONE ) (64386) [facility] Work Phone: Start: 03-05-2022 Acth stimulation panel adrenal insufficiency ACTH STIMULATION PANEL; FOR ADRENAL INSUFFICIENCY (46779) [facility]; [facility] Work Phone: Start: 03-05-2022 Assay of hydroxyindolacetic acid 5-hiaa HYDROXYINDOLACET ACID 5- (20627) [facility] Work Phone: Start: 03-05-2022 Adrenocorticotropic hormone acth ACTH (32933) [facility] Work Phone: Start: 03-05-2022 Cortisol free Cortisol,Urinary Free 24- Hour Urine (02309) [facility]; [facility] Work Phone: Start: 03-05-2022 Metanephrines METANEPHRINES (30543) [facility]; [facility] Work Phone: Start: 03-05-2022 Catecholamines fractionated Catecholamines,24-Hour Urine (81968) [facility]; [facility] Work Phone: Start: 02-27-2022 Assay of hydroxyindolacetic acid 5-hiaa HYDROXYINDOLACET ACID 5- (03516) [facility] Work Phone: Start: 02-27-2022 Adrenocorticotropic hormone acth ACTH (56370) [facility] Work Phone: Start: 02-27-2022 Dehydroepiandrosterone DHEA (DEHYDROEPIANDROSTERONE ) (65639) [facility]; [facility] Work Phone: Start: 02-27-2022 Acth stimulation panel adrenal insufficiency ACTH STIMULATION PANEL; FOR ADRENAL INSUFFICIENCY (49972) [facility] Work Phone: Start: 02-27-2022 Cortisol free Cortisol,Urinary Free 24- Hour Urine (08564) [facility]; [facility] Work Phone: Start: 02-27-2022 Catecholamines fractionated Catecholamines,24-Hour Urine (98063) [facility] Work Phone: Start: 02-27-2022 Metanephrines METANEPHRINES - URINE (47033) [facility] Work Phone: Comment on above: 24 hr urine Start: 02-18-2022 C-reactive protein C-REACTIVE PROTEIN (04940) [facility]; [facility] Work Phone: Start: 02-18-2022 Sedimentation rate rbc non-automated Sed Rate Erythrocyte (87279) [facility]; [facility] Work Phone: Start: 02-18-2022 Comprehensive metabolic panel Metabolic Panel, Comprehensive (80423) [facility]; [facility] Work Phone: Start: 02-18-2022 Blood count manual cell count each CBC with auto diff (03618) [facility]; [facility] Work [...] Phone: Start: 12-31-2021 Assay of parathormone PARATHORMONE (01162) [facility]; [facility] Work Phone: Start: 12-31-2021 Assay of thyroid stimulating hormone tsh [facility] Work Phone: Start: 12-31-2021 Urnls dip stick/tablet reagent auto microscopy URINALYSIS, W/ MICRO (39378) [facility]; [facility] Work Phone: Start: 12-31-2021 Urine albumin quantitative MICROALBUMIN: CREATININE RATIO (83256) AND (91971) [facility]; [facility] Work Phone: Start: 12-31-2021 Comprehensive metabolic panel METABOLIC PANEL, COMPREHENSIVE (28075) [facility]; [facility] Work Phone: Start: 12-31-2021 Blood count complete auto&auto difrntl wbc CBC W/AUTO DIFF WBC (24649) [facility]; [facility] Work Phone: Start: 12-31-2021 Lipid panel LIPID PANEL (98431) [facility]; [facility] Work Phone: Start: 12-31-2021 25 hydroxy includes fractions if performed CALCIFIDIOL (85282) VIT D 25 [facility]; [facility] Work Phone: Start: 12-19-2021 Potassium serum plasma/whole blood POTASSIUM SERUM (85802) [facility]; [facility] Work Phone: Start: 10-17-2021 Comprehensive metabolic panel METABOLIC PANEL, COMPREHENSIVE (11356) [facility]; [facility] Work Phone: Start: 10-17-2021 Assay of parathormone PARATHORMONE (70600) [facility]; [facility] Work Phone: Start: 10-17-2021 Procedure Education Eprescribed prescriptions (G8553) [facility]; [facility] Work Phone: Start: 10-17-2021 Provider Instructions for Treatment [facility] Work Phone: Start: 10-10-2021 Procedure Education Eprescribed prescriptions (G8553) [facility]; [facility] Work Phone: Start: 10-10-2021 Assay of parathormone PARATHORMONE (41383) [facility]; [facility] Work Phone: Comment on above: Fax to hospital October 12 Start: 10-10-2021 Calcium total CALCIUM SERUM (26590) [facility] Work Phone: Comment on above[facility] Start: 10-03-2021 Provider Instructions for Treatment Follow up if no improvement or if symptoms worsen [facility] Work Phone: Start: 09-26-2021 Assay of aldosterone ALDOSTERONE (57009) [facility]; [facility] Work Phone: Start: 09-26-2021 Assay of renin RENIN (63605) [facility]; [facility] Work Phone: Start: 09-26-2021 Metanephrines METANEPHRINES - URINE (03026) [facility]; [facility] Work Phone: Start: 09-26-2021 Catecholamines total urine CATECHOLAMINES TOTAL, URINE (02284) [facility]; [facility] Work Phone: Start: 09-26-2021 Assay of vanillylmandelic acid urine URINE VMA (04546) [facility]; [facility] Work [...] 08-09-2021 Assay of troponin quantitative Troponin I (38367) [facility]; [facility] Work Phone: Start: 08-09-2021 Urnls dip stick/tablet reagent auto microscopy URINALYSIS, W/ MICRO (34521) [facility]; [facility] Work Phone: Start: 08-09-2021 Comprehensive metabolic panel METABOLIC PANEL, COMPREHENSIVE (66025) [facility]; [facility] Work Phone: Start: 08-09-2021 Blood count complete auto&auto difrntl wbc CBC W/AUTO DIFF WBC (80261) [facility]; [facility] Work Phone: Start: 08-09-2021 Procedure Education Eprescribed prescriptions (G8553) [facility]; [facility] Work Phone: Start: 05-31-2021 Basic metabolic panel calcium total METABOLIC PANEL, BASIC (61608) [facility]; [facility] Work Phone: Start: 05-28-2021 Procedure Education Eprescribed prescriptions (G8553) [facility]; [facility] Work Phone: Start: 05-28-2021 Provider Instructions for Treatment [facility]; [facility] Work Phone: Start: 05-28-2021 Assay of thyroid stimulating hormone tsh TSH (97193) [facility]; [facility] Work Phone: Start: 05-28-2021 Urnls dip stick/tablet reagent auto microscopy URINALYSIS, W/ MICRO (58803) [facility]; [facility] Work Phone: Start: 05-28-2021 Urine albumin quantitative MICROALBUMIN: CREATININE RATIO (76984) AND (80805) [facility]; [facility] Work Phone: Start: 05-28-2021 Comprehensive metabolic panel METABOLIC PANEL, COMPREHENSIVE (73634) [facility]; [facility] Work Phone: Start: 05-28-2021 Blood count complete auto&auto difrntl wbc CBC W/AUTO DIFF WBC (47570) [facility]; [facility] Work Phone: Start: 05-28-2021 Lipid panel LIPID PANEL (91534) [facility]; [facility] Work [...] 12-13-2020 Hemoglobin glycosylated a1c HgA1C , Office (25978) [facility] Work Phone: Start: 12-13-2020 Gluc bld gluc mntr dev cleared fda spec home use Blood Glucose , Office (87546) [facility]; [facility] Work Phone: Start: 12-08-2020 Renal function panel RENAL FUNCTION PANEL (80576) [facility]; [facility] Work Phone: Start: 12-08-2020 Lipid panel LIPID PANEL (17851) [facility]; [facility] Work Phone: Start: 09-15-2020 Procedure Education Eprescribed prescriptions (G8553) [facility]; [facility] Work Phone: Start: 09-15-2020 Provider Instructions for Treatment [facility]; [facility] Work Phone: Start: 09-15-2020 Blood count complete auto&auto difrntl wbc CBC, Platelets & Auto Diff (18482) [facility]; [facility] Work Phone: Start: 09-15-2020 TSH Qn TSH (17796) [facility]; [facility] Work Phone: Start: 09-15-2020 Comprehensive metabolic panel Metabolic Panel, Comprehensive (10453) [facility]; [facility] Work Phone: Start: 09-15-2020 25 hydroxy includes fractions if performed CALCIFEDIOL (68076) [facility]; [facility] Work Phone: Start: 05-09-2017 End: 05-09-2017 Appointment [facility] Work Phone: 24 Hour ECG [facility] Work Phone: 24 Hour ECG [facility] Aldosterone [Mass/vo lume] in Serum or Plasma [facility] Work Phone: Bacteria identified in Blood by Culture Blood Culture [facility] Work Phone: Bacteria identified in Urine by Culture Urine Culture [facility] Work Phone: Blood culture [facility] Work Phone: Catecholamine measurement [facility] Work Phone: CBC W Auto Different ial panel - Blood [facility] Work Phone: CBC W Auto Different ial panel - Blood [facility] DOPamine [Mass/volum e] in Serum or Plasma [facility] Work Phone: EPINEPHrine [Mass/vo lume] in Plasma [facility] Work Phone: Hepatic function panel [facility] Influenza virus A an d B and SARS-CoV-2 (COVID-19) Ag panel - Upper respiratory specim [facility] Work Phone: Lipid 1996 panel - S anum or Plasma [facility] MG Breast - bilatera l Screening [facility] Work Phone: NM Heart Views W str ess and W radionuclide IV [facility] Patient Education [facility] Work Phone: Patient referral [facility] Work Phone: Plasma norepinephrin e measurement [facility] Work Phone: Renin [Enzymatic activity/volume] in Plasma [facility] Work Phone: Respiratory syncytia l virus Ag [Presence] in Tissue by Immune stain [facility] Work Phone: SARS-CoV-2 & FLU Ant igen (Rapid) SARS-CoV-2 & FLU Antigen (Rapid) [facility] Work Phone: US Heart [facility] [...] [facility]; [facility] Work Phone: [facility] Immunizations Immunization Date Immunization Notes Care Provider [facility] 04-12-2020 Influenza, high dose seasonal Dr. Martina Lal DO Work Phone: [facility] 04-12-2020 influenza, high dose seasonal, preservative-free Dr. Martina Lal Work Phone: [facility] 05-13-2019 Influenza, high dose seasonal Dr. Martina Lal DO Work Phone: [facility] 05-13-2019 influenza, high dose seasonal, preservative-free Dr. Martina Lal Work Phone: [facility] 05-27-[address] Martina Lal Work Phone: [facility] 04-17-2017 Influenza, high dose seasonal Dr. Martina Lal DO Work Phone: [facility] 04-17-2017 influenza, high dose seasonal, preservative-free Dr. Martina Lal Work Phone: [facility] 03-02-2015 pneumococcal conjuga te vaccine, [address] Martina Lal Work Phone: [facility] Payers Date Payer Category Payer Self-pay [id number] 2022 Private Health Insurance [id number] 2009 Medicare [id number] 1935 Unknown [id number] Unknown [employer] Unknown [id number] Unknown [id number] [id number]2 Unknown [id number] 2.16.840.1.634672.3.579.2.462 Unknown [id number] 2.16.840.1.812870.3.579.2.462 Unknown [id number] 2.16.840.1.922345.3.579.2.462 Unknown [id number] 2.16.840.1.660738.3.579.2.462 Unknown [id number] 2.16.840.1.618564.3.579.2.462 Unknown [id number] 2.16.840.1.260233.3.579.2.462 Unknown [id number] 2.16.840.1.448925.3.579.2.462 Unknown [id number] 2.16.840.1.194917.3.579.2.462 Unknown [id number] 2.16.840.1.838336.3.579.2.462 Unknown [id number] 2.16.840.1.015892.3.579.2.462 Unknown [id number] 2.16.840.1.941141.3.579.2.462 Unknown [id number] 2.16.840.1.570452.3.579.2.462 Unknown [id number] 2.16.840.1.289546.3.579.2.462 Unknown [id number] 2.16.840.1.731441.3.579.2.462 Unknown [id number] 2.16.840.1.390527.3.579.2.462 Unknown [id number] 2.16.840.1.174329.3.579.2.462 Unknown [id number] 2.16.840.1.040499.3.579.2.462 Unknown [id number] 2.16.840.1.077000.3.579.2.462 Unknown [id number] 2.16.840.1.453889.3.579.2.462 Unknown [id number] 2.16.840.1.069239.3.579.2.462 Unknown [id number] 2.16.840.1.806254.3.579.2.462 Unknown [id number] 2.16.840.1.695502.3.579.2.462 Unknown [id number] 2.16.840.1.070517.3.579.2.462 Social History Date Type Detail Facility Caffeine Use Caffeine Use [facility] Work Phone: Comment on above: 1 daily Living Situation: Living Situation: Compr ehens[facility]; [facility] Work Phone: Living Situation: Living Situation: Compr ens[facility]; [facility] Work Phone: Start: 06-28-2020 End: 09-10-2022 Tobacco smoking status NHIS Unknown if ever smoked [facility] Start: 07-29-2014 None [facility] Start: 07-29-2014 Alone [facility] Start: 07-29-2014 Non-smoker [facility] Start: 1935 Sex Assigned At Female [facility] Start: 03-12-2024 End: 12-24-2024 Tobacco smoking status NHIS Never smoked tobacco (finding) [facility] Start: 10-14-2024 End: 11-15-2024 Sex Female (finding) [facility] NEGATED: Highlighted row [facility] Medical Equipment Procedure Code Equipment Code Equipment [...] Assessment Result Facility 07-17-2022 Functional status Chair [facility] Work Phone: 07-17-2022 Functional status Standby Assist [facility] Work Phone: 07-07-2022 Functional status Chair [facility] Work Phone: 07-06-2022 Functional status Well [facility] Work Phone: 06-06-2022 Functional status Ambulates;Up ad emely [facility] Work Phone: 05-23-2022 Functional status Ambulates [facility] Work Phone: 05-18-2022 Functional status Chair [facility] Work Phone: Mental Status Date Assessment Result Facility 09-10-2023 Cognitive function Level Of Cons ciousness Awake;Alert;Appropriate;Follow s Commands;Responds to vocal stimuli [facility] Work Phone: 07-17-2022 Cognitive function Voice/Name [facility] Work Phone: 07-13-2022 Cognitive function Level Of Cons ciousness Awake;Alert;Appropriate [facility] Work Phone: 07-07-2022 Cognitive function Voice/Name [facility] Work Phone: 07-02-2022 Cognitive function Level Of Cons ciousness Awake;Alert;Appropriate;Follow s Commands [facility] Work Phone: 06-06-2022 Cognitive function Voice/Name [facility] Work Phone: 05-23-2022 Cognitive function Voice/Name [facility] Work Phone: 05-18-2022 Cognitive function Voice/Name [facility] Work Phone: 05-14-2022 Cognitive function Level Of Cons ciousness Awake;Alert;Appropriate [facility] Work Phone: 04-30-2022 Cognitive function Voice/Name [facility] Work Phone: Clinical Notes 08-24-2020 to 12-16-2024 [...] apnea) chronic December 16, 2024 1 :29pm [facility] Work Phone: [phone] Evaluation note* Diagnosis Onset Date Resolution Status [...] apnea) chroni c December 16, 2024 1:29pm Left leg pain acute January 01, 2025 12:12pm [facility] Work Phone: [phone] 250-282503-20-2025 Radiology Diagnostic study note [facility] [address] [place] [address] Abdomen without IV Contrast MR#: [id number] Acct: [id number] Name: DEBBIE MIRELES Rep #: [id number] : [id number] F [id number] From: Contreras Hernandez MD PCP: Dr. Martina Lal DO Status: RE G CLI Study:Abdomen without IV Contrast Date of Exa m: 10/07/24 Exam# [id number] Ordering Dr: Saul Lal DO PROCEDURE: ABDOMEN [...] abdominal wall fat containing hernia. Reading Location: [facility] CC: Dr. 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01-20-2025 Evaluation note* Diagnosis Onset Date Resolution Status Admit Date Left carotid artery stenosis chronic August 09, 2024 3:33pm HLD (hyperlipidemia) acute 2024 12:48pm (HFpEF) heart failure with preserved ejection fraction chronic [place] 2024 12:48pm Hypertension chronic July 12:48pm Left carotid artery stenosis chronic August 17, 2024 12:48pm ABDI (obstructive sleep apnea) chroni c August 17, 2024 12:48pm [facility] Work Phone: 1(934) 893-747011-21-2022 Instructions* Name Dates Details Patient Instructions Start:10-Jun-2022 Instruction Type:Provider Instructions for Treatment How to Access Health Informa tion Online using Patient Portal and 3rd [employer] Apps Start:10-Jun-2022 Instruction Type:Patient Education Patient Instructions Start:10-May-2022 Instruction Type:Provider Instructions for Treatment How to Access Health Informa tion Online using Patient Portal and [employer]rd [employer] Apps Start:10-May-2022 Instruction Type:Patient Education Patient Instructions Indication:Nonsmoker Start:14-Mar-2022 Instruction Type:Provider Instructions for Treatment How to Access Health Informa tion Online using Patient Portal and [employer]rd [employer] Apps Indication:Nonsmoker Start:14-Mar-2022 Instruction Type:Patient Education Patient Instructions Indication:Nonsmoker Start:07-Mar-2022 Instruction Type:Provider Instructions for Treatment How to Access Health Informa tion Online using Patient Portal and 3rd [employer] Apps Indication:Nonsmoker Start:07-Mar-2022 Instruction Type:Patient Education Patient Instructions Indication:Morbid obesity Start:18-Feb-2022 Instruction Type:Provider Instructions for Treatment How to Access Health Informa tion Online using Patient Portal and [employer]rd [employer] Apps Indication:Morbid obesity Start:18-Feb-2022 Instruction Type:Patient Education Patient Instructions Indication:Morbid obesity Start:31-Dec-2021 Instruction Type:Provider Instructions for Treatment How to Access Health Informa tion Online using Patient Portal and [employer]rd [employer] Apps Indication:Morbid obesity Start:31-Dec-2021 Instruction Type:Patient Education Patient Instructions Indication:BMI 40.0-44.9, adult Start:17-Oct-2021 Instruction Type:Provider Instructions for Treatment How to Access Health Informa tion Online using Patient Portal and [employer]rd [employer] Apps Indication:BMI 40.0-44.9, adult Start:17-Oct-2021 Instruction Type:Patient Education Patient Instructions Indication:BMI 40.0-44.9, adult Start:10-Oct-2021 Instruction Type:Provider Instructions for Treatment How to Access Health Informa tion Online using Patient Portal and 3rd [employer] Apps Indication:BMI 40.0-44.9, adult Start:10-Oct-2021 Instruction Type:Patient Education Patient Instructions Indication:Cellulitis Start:03-Oct-2021 Instruction Type:Provider Instructions for Treatment Patient Instructions Indication:BMI 40.0-44.9, adult Start:26-Sep-2021 Instruction Type:Provider Instructions for Treatment How to Access Health Informa tion Online using Patient Portal and 3rd [employer] Apps Indication:BMI 40.0-44.9, adult Start:26-Sep-2021 Instruction Type:Patient Education Patient Instructions Indication:Nonsmoker Start:10-Aug-2021 Instruction Type:Provider Instructions for Treatment How to Access Health Informa tion Online using Patient Portal and 3rd [employer] Apps Indication:Hypertension Start:10-Aug-2021 Instruction Type:Patient Education Patient Instructions Indication:BMI 40.0-44.9, adult Start:09-Aug-2021 Instruction Type:Provider Instructions for Treatment How to Access Health Informa tion Online using Patient Portal and 3rd [employer] Apps Indication:BMI 40.0-44.9, adult Start:09-Aug-2021 Instruction Type:Patient Education Patient Instructions Indication:Nonsmoker Start:28-May-2021 Instruction Type:Provider Instructions for Treatment How to Access Health Informa tion Online using Patient Portal and 3rd [employer] Apps Indication:Nonsmoker Start:28-May-2021 Instruction Type:Patient Education Patient Instructions Indication:BMI 40.0-44.9, adult Start:04-Apr-2021 Instruction Type:Provider Instructions for Treatment How to Access Health Informa tion Online using Patient Portal and [employer]rd [employer] Apps Indication:BMI 40.0-44.9, adult Start:04-Apr-2021 Instruction Type:Patient Education Patient Instructions Indication:BMI 40.0-44.9, adult Start:20-Mar-2021 Instruction Type:Provider Instructions for Treatment How to Access Health Informa tion Online using Patient Portal and 3rd [employer] Apps Indication:BMI 40.0-44.9, adult Start:20-Mar-2021 Instruction Type:Patient Education Patient Instructions Indication:Type 2 diabetes mellitus Start:13-Dec-2020 Instruction Type:Provider Instructions for Treatment How to Access Health Informa tion Online using Patient Portal and 3rd [employer] Apps Indication:Type 2 diabetes mellitus Start:13-Dec-2020 Instruction Type:Patient Education Patient Instructions Indication:Type 2 diabetes mellitus Start:15-Sep-2020 Instruction Type:Provider Instructions for Treatment How to Access Health Informa tion Online using Patient Portal and [employer] Apps Indication:Type 2 diabetes mellitus Start:15-Sep-2020 Instruction Type:Patient Education [facility]; [facility] Work Phone: 1(746) 924-625409-08-2021 NotePatient Outreach (NETNAV) DEBBIE MIRELES ([id number]) 1935 F Date Time Provider Department 03/28/21 CELIO GALEANO During your visit today, we recorded the following information about you: Celio Galeano MA 03/28/2021 10:29 AM Signed POPULATION HEALTH NAVIGATION OUTREACH Action/FYI Patient is on [facility] list for below gaps : I77.9 - Carotid arterial disease (HCC) - [id number] Last Billed 04/12/2020 patient also due for [...] condition Payer: Payor: [employer] MEDICARE / Plan: [employer] PLUS / Product Type: HMO / Allergies As of Date: 03/28/2021 Noted Allergy Reaction DEMEROL (MEPERIDINE (PF)) 07/11/2005 1 - Mental Status Change LEVAQUIN (LEVOFLOXACIN) 08/11/2014 8 - GI Upset MORPHINE 01/28/2018 11 - Vomiting Date Reviewed: 12/14/2019 Reviewed by: Shannon Sona Ma - Fully Assessed Reason for Visit: Population Health Navigation Outreach [[id number]] Cmt: [facility] Prescriptions as of 03/28/2021 - nateglinide (STARLIX) [...] PRESCRIPTION Artery Cleanse - COMPOUNDED PRESCRIPTION Cardio [place] Healthy heart/arteries - OMEGA 9-EAM-WZG-OTHER OM3-D3 ORAL Take by mouth. - aspirin, [...] neurop*08/16/2019 Encounter Status:Closed by CELIO GALEANO on 03/28/21[facility] 03-28-2021 NoteHNO ID: [id number] Author: Celio Galeano MA Service: ? Author Type: [employer] Officer Type: Progress Notes Filed: 03/28/2021 10:29 AM Note Text: POPULATION HEALTH NAVIGATION OUTREACH Action/FYI Patient is on [facility] list for below gaps : I77.9 - Carotid arterial disease (HCC) - [id number] Last Billed 04/12/2020 patient also due for [...] Outreach HCC or suspected condition Payer: Payor: [employer] MEDICARE / Plan: [employer] GOLD PLUS / Product Type: HMO /[facility]02-04-2021 NoteHNO ID: [id number] Author: Philip Kumar Service: ? Author Type: [...] PRESCRIPTION Artery Cleanse - COMPOUNDED PRESCRIPTION Cardio [place] Healthy heart/arteries - OMEGA 9-CEZ-AXN-OTHER OM3-D3 ORAL Take by mouth. - aspirin, [...] Bilateral 12 - COLONOSCOP W/ OR W/O [facility] 03/26/02 Colonoscopy - COLONOSCOP W/ OR W/O [facility] 05/18/2008 Colonoscopy - COLONOSCOP W/ OR W/O [facility] 01/13/14 Colonoscopy - REMOVAL GALLBLADDER 97 [...] patient in detail. (more content not included)... [facility] Work Phone: evaluation note* Diagnosis Onset Date Resolution Status BMI 40.0-44.9, adult acute ABDI (obstructive sleep apnea) acute [facility] Work Phone: evaluation note* Diagnosis Onset Date Resolution Status Recurrent incisional hernia with incarceration acute Right flank pain acute [facility] Work Phone: evaluation note* Diagnosis Onset Date Resolution Status Recurrent incisional hernia with incarceration acute Right flank pain acute Abnormal ultrasound of breast acute [facility] Work Phone: evaluation note* Diagnosis Onset Date Resolution Status Recurrent incisional hernia with incarceration acute Right flank pain acute Abnormal ultrasound of breast acute Breast cancer, right breast [address] [facility] Work Phone: evaluation note* Diagnosis Onset Date Resolution Status Recurrent incisional hernia with incarceration acute Right flank pain acute Abnormal ultrasound of breast acute Breast cancer, right breast 2021 acute Seroma, postoperative acute [facility] Work Phone: Evaluation note* Diagnosis Onset Date Resolution Status Recurrent incisional hernia with incarceration acute Right flank pain acute Abnormal ultrasound of breast acute Breast cancer, right breast 2021 acute Seroma, postoperative acute Seroma, postoperative acute Abnormal urinalysis acute Cellulitis of breast acute Hypertensive urgency acute Leukocytosis acute Seroma, postoperative acute [facility] Work Phone: evaluation note* Diagnosis Onset Date Resolution Status Recurrent incisional hernia with incarceration acute Right flank pain acute Abnormal ultrasound of breast acute Breast cancer, right breast 2021 acute Seroma, postoperative acute Seroma, postoperative acute Abnormal urinalysis acute Breast abscess acute Cellulitis of breast acute Hypertensive urgency acute Infected seroma, postoperative acute Leukocytosis acute Seroma, postoperative acute CHF (congestive heart failure) acute Hypoxemia acute Hypertension [facility] Work Phone: Evaluation note* Diagnosis Onset Date [...] breast resolve d Seroma, postoperative resolv ed [facility] Work Phone: Evaluation note* Diagnosis Onset [...] chronic Diastolic congestive heart failure acute Hypertension [facility] Work Phone: Evaluation note* Diagnosis Onset Date [...] breast 2021 acute Left adrenal mass chronic [facility] Work Phone: Evaluation note* Diagnosis Onset [...] for education acut e Left adrenal mass [facility] Work Phone: Evaluation note* Diagnosis Onset Date [...] blood pressure acute Nausea acute Shakiness acute [facility] Work Phone: Evaluation note* Diagnosis Onset [...] mass chronic MALATHI (acute kidney injury) ac tolowa dee-ni' Bradycardia acute Diastolic congestive heart failure acute HLD (hyperlipidemia) acute Hypoxia acute Labile blood pressure acute Nausea acute Shakiness acute Uncontrolled hypertension ac tolowa dee-ni' Chronic kidney disease, stage 3a chronic Hypertension chronic Bradycardia acute Diastolic congestive heart failure acute ABDI (obstructive sleep apnea) acute Bilateral carotid artery stenosis chronic Chronic kidney disease, stage 3a chronic Hypertension chronic Debility acute Hypercalcemia acute Left adrenal mass acute Prerenal azotemia acute Chronic kidney disease, stage 3a chronic [facility] Work Phone: Evaluation note* Diagnosis Onset [...] Bradycardia resolved MALATHI (acute kidney injury) ac tolowa dee-ni' Debility acute FTT (failure to thrive) in adult acute Hypercalcemia acute Labile blood pressure acute Left adrenal mass acute Nocturnal hypoxia acute Prerenal azotemia acute [facility] Work Phone: Evaluation note* Diagnosis Onset [...] adult acute ABDI (obstructive sleep apnea) acute [facility] Work Phone: Evaluation note* Diagnosis Onset [...] adult acute ABDI (obstructive sleep apnea) acute [facility] Work Phone: Evaluation note* Diagnosis Onset [...] adult acute ABDI (obstructive sleep apnea) acute [facility] Work Phone: Evaluation note* Diagnosis Onset Date Resolution Status Left adrenal mass chronic ABDI (obstructive sleep apnea) acute Bilateral carotid artery stenosis chronic BMI 40.0-44.9, adult acute ABDI (obstructive sleep apnea) acute [facility] Work Phone: Evaluation note* Diagnosis Onset Date Resolution Status (HFpEF) heart failure with preserved ejection fraction chronic Bilateral carotid artery stenosis chronic Diabetes mellitus chronic Hypertension chronic [facility] Work Phone: Evaluation note* Diagnosis Onset Date Resolution Status (HFpEF) heart failure with preserved ejection fraction chronic Bilateral carotid artery stenosis chronic Diabetes mellitus chronic Hypertension chronic Left carotid artery stenosis acute [facility] Work Phone: Evaluation note* Diagnosis Onset Date Resolution Status Left carotid artery stenosis acute Obesity chronic ABDI (obstructive sleep apnea) chronic [facility] Work Phone: Evaluation note* Diagnosis Onset Date Resolution Status Obesity chronic ABDI (obstructive sleep apnea) [facility] Work Phone: Evaluation note* Diagnosis Onset Date Resolution Status (HFpEF) heart failure with preserved ejection fraction chronic Bilateral carotid artery stenosis chronic Bradycardia chronic Diabetes mellitus chronic Hypertension chronic [facility] Work Phone: Evaluation note* Diagnosis Onset [...] adult acute ABDI (obstructive sleep apnea) acute [facility] Work Phone: Evaluation note* Diagnosis Onset [...] apnea) chroni c December 16, 2024 1:29pm [facility] Work Phone: Hospital Discharge instructionsAmbulatory Orders* Oncology Location: None Selected [facility] Work Phone: Hospital Discharge instructionsAmbulatory Orders* Radiation Oncology Location: None Selected [facility] Work Phone: Instructyoch* Name Dates Details Patient Instructions Indication:Type 2 diabetes mellitus Start:15-Sep-2020 Instruction Type:Provider Instructions for Treatment How to Access Health Informa tion Online using Patient Portal and 3rd [employer] Apps Indication:Type 2 diabetes mellitus Start:15-Sep-2020 Instruction Type:Patient Education [facility]; [facility] Work Phone: instructions* Name Dates Details Patient Instructions Indication:Type 2 diabetes mellitus Start:15-Sep-2020 Instruction Type:Provider Instructions for Treatment How to Access Health Informa tion Online using Patient Portal and [employer] Apps Indication:Type 2 diabetes mellitus Start:15-Sep-2020 Instruction Type:Patient Education [facility]; [facility] Work Phone: instructions* Name Dates Details Patient Instructions Indication:Type 2 diabetes mellitus Start:13-Dec-2020 Instruction Type:Provider Instructions for Treatment How to Access Health Informa tion Online using Patient Portal and [employer]rd [employer] Apps Indication:Type 2 diabetes mellitus Start:13-Dec-2020 Instruction Type:Patient Education Patient Instructions Indication:Type 2 diabetes mellitus Start:15-Sep-2020 Instruction Type:Provider Instructions for Treatment How to Access Health Informa tion Online using Patient Portal and [employer]rd [employer] Apps Indication:Type 2 diabetes mellitus Start:15-Sep-2020 Instruction Type:Patient Education [facility]; [facility] Work Phone: instructions* Name Dates Details Patient Instructions Indication:Type 2 diabetes mellitus Start:13-Dec-2020 Instruction Type:Provider Instructions for Treatment How to Access Health Informa tion Online using Patient Portal and [employer]rd [employer] Apps Indication:Type 2 diabetes mellitus Start:13-Dec-2020 Instruction Type:Patient Education Patient Instructions Indication:Type 2 diabetes mellitus Start:15-Sep-2020 Instruction Type:Provider Instructions for Treatment How to Access Health Informa tion Online using Patient Portal and [employer]rd [employer] Apps Indication:Type 2 diabetes mellitus Start:15-Sep-2020 Instruction Type:Patient Education [facility]; [facility] Work Phone: instructions* Name Dates Details Patient Instructions Indication:Nonsmoker Start:28-May-2021 Instruction Type:Provider Instructions for Treatment How to Access Health Informa tion Online using Patient Portal and [employer]rd [employer] Apps Indication:Nonsmoker Start:28-May-2021 Instruction Type:Patient Education Patient Instructions Indication:BMI 40.0-44.9, adult Start:04-Apr-2021 Instruction Type:Provider Instructions for Treatment How to Access Health Informa tion Online using Patient Portal and [employer]rd [employer] Apps Indication:BMI 40.0-44.9, adult Start:04-Apr-2021 Instruction Type:Patient Education Patient Instructions Indication:BMI 40.0-44.9, adult Start:20-Mar-2021 Instruction Type:Provider Instructions for Treatment How to Access Health Informa tion Online using Patient Portal and [employer]rd [employer] Apps Indication:BMI 40.0-44.9, adult Start:20-Mar-2021 Instruction Type:Patient Education Patient Instructions Indication:Type 2 diabetes mellitus Start:13-Dec-2020 Instruction Type:Provider Instructions for Treatment How to Access Health Informa tion Online using Patient Portal and [employer]rd [employer] Apps Indication:Type 2 diabetes mellitus Start:13-Dec-2020 Instruction Type:Patient Education Patient Instructions Indication:Type 2 diabetes mellitus Start:15-Sep-2020 Instruction Type:Provider Instructions for Treatment How to Access Health Informa tion Online using Patient Portal and [employer]rd [employer] Apps Indication:Type 2 diabetes mellitus Start:15-Sep-2020 Instruction Type:Patient Education [facility]; [facility] Work Phone: instructions* Name Dates Details Patient Instructions Indication:BMI 40.0-44.9, adult Start:09-Aug-2021 Instruction Type:Provider Instructions for Treatment How to Access Health Informa tion Online using Patient Portal and [employer]rd [employer] Apps Indication:BMI 40.0-44.9, adult Start:09-Aug-2021 Instruction Type:Patient Education Patient Instructions Indication:Nonsmoker Start:28-May-2021 Instruction Type:Provider Instructions for Treatment How to Access Health Informa tion Online using Patient Portal and [employer]rd [employer] Apps Indication:Nonsmoker Start:28-May-2021 Instruction Type:Patient Education Patient Instructions Indication:BMI 40.0-44.9, adult Start:04-Apr-2021 Instruction Type:Provider Instructions for Treatment How to Access Health Informa tion Online using Patient Portal and [employer]rd [employer] Apps Indication:BMI 40.0-44.9, adult Start:04-Apr-2021 Instruction Type:Patient Education Patient Instructions Indication:BMI 40.0-44.9, adult Start:20-Mar-2021 Instruction Type:Provider Instructions for Treatment How to Access Health Informa tion Online using Patient Portal and [employer]rd [employer] Apps Indication:BMI 40.0-44.9, adult Start:20-Mar-2021 Instruction Type:Patient Education Patient Instructions Indication:Type 2 diabetes mellitus Start:13-Dec-2020 Instruction Type:Provider Instructions for Treatment How to Access Health Informa tion Online using Patient Portal and [employer]rd [employer] Apps Indication:Type 2 diabetes mellitus Start:13-Dec-2020 Instruction Type:Patient Education Patient Instructions Indication:Type 2 diabetes mellitus Start:15-Sep-2020 Instruction Type:Provider Instructions for Treatment How to Access Health Informa tion Online using Patient Portal and [employer]rd [employer] Apps Indication:Type 2 diabetes mellitus Start:15-Sep-2020 Instruction Type:Patient Education [facility]; [facility] Work Phone: Instructions* Name Dates Details Patient Instructions Indication:BMI 40.0-44.9, adult Start:09-Aug-2021 Instruction Type:Provider Instructions for Treatment How to Access Health Informa tion Online using Patient Portal and [employer]rd [employer] Apps Indication:BMI 40.0-44.9, adult Start:09-Aug-2021 Instruction Type:Patient Education Patient Instructions Indication:Nonsmoker Start:28-May-2021 Instruction Type:Provider Instructions for Treatment How to Access Health Informa tion Online using Patient Portal and [employer]rd [employer] Apps Indication:Nonsmoker Start:28-May-2021 Instruction Type:Patient Education Patient Instructions Indication:BMI 40.0-44.9, adult Start:04-Apr-2021 Instruction Type:Provider Instructions for Treatment How to Access Health Informa tion Online using Patient Portal and [employer] Apps Indication:BMI 40.0-44.9, adult Start:04-Apr-2021 Instruction Type:Patient Education Patient Instructions Indication:BMI 40.0-44.9, adult Start:20-Mar-2021 Instruction Type:Provider Instructions for Treatment How to Access Health Informa tion Online using Patient Portal and [employer] Apps Indication:BMI 40.0-44.9, adult Start:20-Mar-2021 Instruction Type:Patient Education Patient Instructions Indication:Type 2 diabetes mellitus Start:13-Dec-2020 Instruction Type:Provider Instructions for Treatment How to Access Health Informa tion Online using Patient Portal and [employer] Apps Indication:Type 2 diabetes mellitus Start:13-Dec-2020 Instruction Type:Patient Education Patient Instructions Indication:Type 2 diabetes mellitus Start:15-Sep-2020 Instruction Type:Provider Instructions for Treatment How to Access Health Informa tion Online using Patient Portal and [employer] Apps Indication:Type 2 diabetes mellitus Start:15-Sep-2020 Instruction Type:Patient Education [facility]; [facility] Work Phone: Instructions* Name Dates Details Patient Instructions Indication:Nonsmoker Start:10-Aug-2021 Instruction Type:Provider Instructions for Treatment How to Access Health Informa tion Online using Patient Portal and [employer] Apps Indication:Hypertension Start:10-Aug-2021 Instruction Type:Patient Education Patient Instructions Indication:BMI 40.0-44.9, adult Start:09-Aug-2021 Instruction Type:Provider Instructions for Treatment How to Access Health Informa tion Online using Patient Portal and [employer] Apps Indication:BMI 40.0-44.9, adult Start:09-Aug-2021 Instruction Type:Patient Education Patient Instructions Indication:Nonsmoker Start:28-May-2021 Instruction Type:Provider Instructions for Treatment How to Access Health Informa tion Online using Patient Portal and [employer] Apps Indication:Nonsmoker Start:28-May-2021 Instruction Type:Patient Education Patient Instructions Indication:BMI 40.0-44.9, adult Start:04-Apr-2021 Instruction Type:Provider Instructions for Treatment How to Access Health Informa tion Online using Patient Portal and [employer] Apps Indication:BMI 40.0-44.9, adult Start:04-Apr-2021 Instruction Type:Patient Education Patient Instructions Indication:BMI 40.0-44.9, adult Start:20-Mar-2021 Instruction Type:Provider Instructions for Treatment How to Access Health Informa tion Online using Patient Portal and [employer] Apps Indication:BMI 40.0-44.9, adult Start:20-Mar-2021 Instruction Type:Patient Education Patient Instructions Indication:Type 2 diabetes mellitus Start:13-Dec-2020 Instruction Type:Provider Instructions for Treatment How to Access Health Informa tion Online using Patient Portal and [employer] Apps Indication:Type 2 diabetes mellitus Start:13-Dec-2020 Instruction Type:Patient Education Patient Instructions Indication:Type 2 diabetes mellitus Start:15-Sep-2020 Instruction Type:Provider Instructions for Treatment How to Access Health Informa tion Online using Patient Portal and [employer] Apps Indication:Type 2 diabetes mellitus Start:15-Sep-2020 Instruction Type:Patient Education [facility]; [facility] Work Phone: Instructions* Name Dates Details Patient Instructions Indication:Nonsmoker Start:10-Aug-2021 Instruction Type:Provider Instructions for Treatment How to Access Health Informa tion Online using Patient Portal and [employer] Apps Indication:Hypertension Start:10-Aug-2021 Instruction Type:Patient Education Patient Instructions Indication:BMI 40.0-44.9, adult Start:09-Aug-2021 Instruction Type:Provider Instructions for Treatment How to Access Health Informa tion Online using Patient Portal and [employer] Apps Indication:BMI 40.0-44.9, adult Start:09-Aug-2021 Instruction Type:Patient Education Patient Instructions Indication:Nonsmoker Start:28-May-2021 Instruction Type:Provider Instructions for Treatment How to Access Health Informa tion Online using Patient Portal and [employer]rd [employer] Apps Indication:Nonsmoker Start:28-May-2021 Instruction Type:Patient Education Patient Instructions Indication:BMI 40.0-44.9, adult Start:04-Apr-2021 Instruction Type:Provider Instructions for Treatment How to Access Health Informa tion Online using Patient Portal and [employer] Apps Indication:BMI 40.0-44.9, adult Start:04-Apr-2021 Instruction Type:Patient Education Patient Instructions Indication:BMI 40.0-44.9, adult Start:20-Mar-2021 Instruction Type:Provider Instructions for Treatment How to Access Health Informa tion Online using Patient Portal and [employer] Apps Indication:BMI 40.0-44.9, adult Start:20-Mar-2021 Instruction Type:Patient Education Patient Instructions Indication:Type 2 diabetes mellitus Start:13-Dec-2020 Instruction Type:Provider Instructions for Treatment How to Access Health Informa tion Online using Patient Portal and [employer] Apps Indication:Type 2 diabetes mellitus Start:13-Dec-2020 Instruction Type:Patient Education Patient Instructions Indication:Type 2 diabetes mellitus Start:15-Sep-2020 Instruction Type:Provider Instructions for Treatment How to Access Health Informa tion Online using Patient Portal and [employer] Apps Indication:Type 2 diabetes mellitus Start:15-Sep-2020 Instruction Type:Patient Education [facility]; [facility] Work Phone: Instructions* Name Dates Details Patient Instructions Indication:BMI 40.0-44.9, adult Start:26-Sep-2021 Instruction Type:Provider Instructions for Treatment How to Access Health Informa tion Online using Patient Portal and [employer] Apps Indication:BMI 40.0-44.9, adult Start:26-Sep-2021 Instruction Type:Patient Education Patient Instructions Indication:Nonsmoker Start:10-Aug-2021 Instruction Type:Provider Instructions for Treatment How to Access Health Informa tion Online using Patient Portal and [employer] Apps Indication:Hypertension Start:10-Aug-2021 Instruction Type:Patient Education Patient Instructions Indication:BMI 40.0-44.9, adult Start:09-Aug-2021 Instruction Type:Provider Instructions for Treatment How to Access Health Informa tion Online using Patient Portal and [employer] Apps Indication:BMI 40.0-44.9, adult Start:09-Aug-2021 Instruction Type:Patient Education Patient Instructions Indication:Nonsmoker Start:28-May-2021 Instruction Type:Provider Instructions for Treatment How to Access Health Informa tion Online using Patient Portal and [employer] Apps Indication:Nonsmoker Start:28-May-2021 Instruction Type:Patient Education Patient Instructions Indication:BMI 40.0-44.9, adult Start:04-Apr-2021 Instruction Type:Provider Instructions for Treatment How to Access Health Informa tion Online using Patient Portal and [employer] Apps Indication:BMI 40.0-44.9, adult Start:04-Apr-2021 Instruction Type:Patient Education Patient Instructions Indication:BMI 40.0-44.9, adult Start:20-Mar-2021 Instruction Type:Provider Instructions for Treatment How to Access Health Informa tion Online using Patient Portal and [employer] Apps Indication:BMI 40.0-44.9, adult Start:20-Mar-2021 Instruction Type:Patient Education Patient Instructions Indication:Type 2 diabetes mellitus Start:13-Dec-2020 Instruction Type:Provider Instructions for Treatment How to Access Health Informa tion Online using Patient Portal and [employer] Apps Indication:Type 2 diabetes mellitus Start:13-Dec-2020 Instruction Type:Patient Education Patient Instructions Indication:Type 2 diabetes mellitus Start:15-Sep-2020 Instruction Type:Provider Instructions for Treatment How to Access Health Informa tion Online using Patient Portal and [employer] Apps Indication:Type 2 diabetes mellitus Start:15-Sep-2020 Instruction Type:Patient Education [facility]; [facility] Work Phone: Instructions* Name Dates Details Patient Instructions Indication:BMI 40.0-44.9, adult Start:26-Sep-2021 Instruction Type:Provider Instructions for Treatment How to Access Health Informa tion Online using Patient Portal and [employer] Apps Indication:BMI 40.0-44.9, adult Start:26-Sep-2021 Instruction Type:Patient Education Patient Instructions Indication:Nonsmoker Start:10-Aug-2021 Instruction Type:Provider Instructions for Treatment How to Access Health Informa tion Online using Patient Portal and [employer] Apps Indication:Hypertension Start:10-Aug-2021 Instruction Type:Patient Education Patient Instructions Indication:BMI 40.0-44.9, adult Start:09-Aug-2021 Instruction Type:Provider Instructions for Treatment How to Access Health Informa tion Online using Patient Portal and [employer] Apps Indication:BMI 40.0-44.9, adult Start:09-Aug-2021 Instruction Type:Patient Education Patient Instructions Indication:Nonsmoker Start:28-May-2021 Instruction Type:Provider Instructions for Treatment How to Access Health Informa tion Online using Patient Portal and [employer] Apps Indication:Nonsmoker Start:28-May-2021 Instruction Type:Patient Education Patient Instructions Indication:BMI 40.0-44.9, adult Start:04-Apr-2021 Instruction Type:Provider Instructions for Treatment How to Access Health Informa tion Online using Patient Portal and [employer] Apps Indication:BMI 40.0-44.9, adult Start:04-Apr-2021 Instruction Type:Patient Education Patient Instructions Indication:BMI 40.0-44.9, adult Start:20-Mar-2021 Instruction Type:Provider Instructions for Treatment How to Access Health Informa tion Online using Patient Portal and [employer] Apps Indication:BMI 40.0-44.9, adult Start:20-Mar-2021 Instruction Type:Patient Education Patient Instructions Indication:Type 2 diabetes mellitus Start:13-Dec-2020 Instruction Type:Provider Instructions for Treatment How to Access Health Informa tion Online using Patient Portal and [employer] Apps Indication:Type 2 diabetes mellitus Start:13-Dec-2020 Instruction Type:Patient Education Patient Instructions Indication:Type 2 diabetes mellitus Start:15-Sep-2020 Instruction Type:Provider Instructions for Treatment How to Access Health Informa tion Online using Patient Portal and [employer] Apps Indication:Type 2 diabetes mellitus Start:15-Sep-2020 Instruction Type:Patient Education [facility]; [facility] Work Phone: Instructions* Name Dates Details Patient Instructions Indication:BMI 40.0-44.9, adult Start:17-Oct-2021 Instruction Type:Provider Instructions for Treatment How to Access Health Informa tion Online using Patient Portal and [employer] Apps Indication:BMI 40.0-44.9, adult Start:17-Oct-2021 Instruction Type:Patient Education Patient Instructions Indication:BMI 40.0-44.9, adult Start:10-Oct-2021 Instruction Type:Provider Instructions for Treatment How to Access Health Informa tion Online using Patient Portal and [employer] Apps Indication:BMI 40.0-44.9, adult Start:10-Oct-2021 Instruction Type:Patient Education Patient Instructions Indication:Cellulitis Start:03-Oct-2021 Instruction Type:Provider Instructions for Treatment Patient Instructions Indication:BMI 40.0-44.9, adult Start:26-Sep-2021 Instruction Type:Provider Instructions for Treatment How to Access Health Informa tion Online using Patient Portal and [employer] Apps Indication:BMI 40.0-44.9, adult Start:26-Sep-2021 Instruction Type:Patient Education Patient Instructions Indication:Nonsmoker Start:10-Aug-2021 Instruction Type:Provider Instructions for Treatment How to Access Health Informa tion Online using Patient Portal and [employer] Apps Indication:Hypertension Start:10-Aug-2021 Instruction Type:Patient Education Patient Instructions Indication:BMI 40.0-44.9, adult Start:09-Aug-2021 Instruction Type:Provider Instructions for Treatment How to Access Health Informa tion Online using Patient Portal and [employer] Apps Indication:BMI 40.0-44.9, adult Start:09-Aug-2021 Instruction Type:Patient Education Patient Instructions Indication:Nonsmoker Start:28-May-2021 Instruction Type:Provider Instructions for Treatment How to Access Health Informa tion Online using Patient Portal and [employer] Apps Indication:Nonsmoker Start:28-May-2021 Instruction Type:Patient Education Patient Instructions Indication:BMI 40.0-44.9, adult Start:04-Apr-2021 Instruction Type:Provider Instructions for Treatment How to Access Health Informa tion Online using Patient Portal and [employer] Apps Indication:BMI 40.0-44.9, adult Start:04-Apr-2021 Instruction Type:Patient Education Patient Instructions Indication:BMI 40.0-44.9, adult Start:20-Mar-2021 Instruction Type:Provider Instructions for Treatment How to Access Health Informa tion Online using Patient Portal and [employer] Apps Indication:BMI 40.0-44.9, adult Start:20-Mar-2021 Instruction Type:Patient Education Patient Instructions Indication:Type 2 diabetes mellitus Start:13-Dec-2020 Instruction Type:Provider Instructions for Treatment How to Access Health Informa tion Online using Patient Portal and [employer] Apps Indication:Type 2 diabetes mellitus Start:13-Dec-2020 Instruction Type:Patient Education Patient Instructions Indication:Type 2 diabetes mellitus Start:15-Sep-2020 Instruction Type:Provider Instructions for Treatment How to Access Health Informa tion Online using Patient Portal and [employer] Apps Indication:Type 2 diabetes mellitus Start:15-Sep-2020 Instruction Type:Patient Education [facility]; [facility] Work Phone: Instructions* Name Dates Details Patient Instructions Indication:BMI 40.0-44.9, adult Start:17-Oct-2021 Instruction Type:Provider Instructions for Treatment How to Access Health Informa tion Online using Patient Portal and [employer] Apps Indication:BMI 40.0-44.9, adult Start:17-Oct-2021 Instruction Type:Patient Education Patient Instructions Indication:BMI 40.0-44.9, adult Start:10-Oct-2021 Instruction Type:Provider Instructions for Treatment How to Access Health Informa tion Online using Patient Portal and [employer] Apps Indication:BMI 40.0-44.9, adult Start:10-Oct-2021 Instruction Type:Patient Education Patient Instructions Indication:Cellulitis Start:03-Oct-2021 Instruction Type:Provider Instructions for Treatment Patient Instructions Indication:BMI 40.0-44.9, adult Start:26-Sep-2021 Instruction Type:Provider Instructions for Treatment How to Access Health Informa tion Online using Patient Portal and [employer] Apps Indication:BMI 40.0-44.9, adult Start:26-Sep-2021 Instruction Type:Patient Education Patient Instructions Indication:Nonsmoker Start:10-Aug-2021 Instruction Type:Provider Instructions for Treatment How to Access Health Informa tion Online using Patient Portal and [employer] Apps Indication:Hypertension Start:10-Aug-2021 Instruction Type:Patient Education Patient Instructions Indication:BMI 40.0-44.9, adult Start:09-Aug-2021 Instruction Type:Provider Instructions for Treatment How to Access Health Informa tion Online using Patient Portal and [employer] Apps Indication:BMI 40.0-44.9, adult Start:09-Aug-2021 Instruction Type:Patient Education Patient Instructions Indication:Nonsmoker Start:28-May-2021 Instruction Type:Provider Instructions for Treatment How to Access Health Informa tion Online using Patient Portal and [employer] Apps Indication:Nonsmoker Start:28-May-2021 Instruction Type:Patient Education Patient Instructions Indication:BMI 40.0-44.9, adult Start:04-Apr-2021 Instruction Type:Provider Instructions for Treatment How to Access Health Informa tion Online using Patient Portal and [employer] Apps Indication:BMI 40.0-44.9, adult Start:04-Apr-2021 Instruction Type:Patient Education Patient Instructions Indication:BMI 40.0-44.9, adult Start:20-Mar-2021 Instruction Type:Provider Instructions for Treatment How to Access Health Informa tion Online using Patient Portal and [employer] Apps Indication:BMI 40.0-44.9, adult Start:20-Mar-2021 Instruction Type:Patient Education Patient Instructions Indication:Type 2 diabetes mellitus Start:13-Dec-2020 Instruction Type:Provider Instructions for Treatment How to Access Health Informa tion Online using Patient Portal and [employer] Apps Indication:Type 2 diabetes mellitus Start:13-Dec-2020 Instruction Type:Patient Education Patient Instructions Indication:Type 2 diabetes mellitus Start:15-Sep-2020 Instruction Type:Provider Instructions for Treatment How to Access Health Informa tion Online using Patient Portal and [employer] Apps Indication:Type 2 diabetes mellitus Start:15-Sep-2020 Instruction Type:Patient Education [facility]; [facility] Work Phone: Instructions* Name Dates Details Patient Instructions Indication:BMI 40.0-44.9, adult Start:17-Oct-2021 Instruction Type:Provider Instructions for Treatment How to Access Health Informa tion Online using Patient Portal and [employer] Apps Indication:BMI 40.0-44.9, adult Start:17-Oct-2021 Instruction Type:Patient Education Patient Instructions Indication:BMI 40.0-44.9, adult Start:10-Oct-2021 Instruction Type:Provider Instructions for Treatment How to Access Health Informa tion Online using Patient Portal and [employer] Apps Indication:BMI 40.0-44.9, adult Start:10-Oct-2021 Instruction Type:Patient Education Patient Instructions Indication:Cellulitis Start:03-Oct-2021 Instruction Type:Provider Instructions for Treatment Patient Instructions Indication:BMI 40.0-44.9, adult Start:26-Sep-2021 Instruction Type:Provider Instructions for Treatment How to Access Health Informa tion Online using Patient Portal and [employer] Indication:BMI 40.0-44.9, adult Start:26-Sep-2021 Instruction Type:Patient Education Patient Instructions Indication:Nonsmoker Start:10-Aug-2021 Instruction Type:Provider Instructions for Treatment How to Access Health Informa tion Online using Patient Portal and [employer] Apps Indication:Hypertension Start:10-Aug-2021 Instruction Type:Patient Education Patient Instructions Indication:BMI 40.0-44.9, adult Start:09-Aug-2021 Instruction Type:Provider Instructions for Treatment How to Access Health Informa tion Online using Patient Portal and [employer] Apps Indication:BMI 40.0-44.9, adult Start:09-Aug-2021 Instruction Type:Patient Education Patient Instructions Indication:Nonsmoker Start:28-May-2021 Instruction Type:Provider Instructions for Treatment How to Access Health Informa tion Online using Patient Portal and [employer] Apps Indication:Nonsmoker Start:28-May-2021 Instruction Type:Patient Education Patient Instructions Indication:BMI 40.0-44.9, adult Start:04-Apr-2021 Instruction Type:Provider Instructions for Treatment How to Access Health Informa tion Online using Patient Portal and [employer] Apps Indication:BMI 40.0-44.9, adult Start:04-Apr-2021 Instruction Type:Patient Education Patient Instructions Indication:BMI 40.0-44.9, adult Start:20-Mar-2021 Instruction Type:Provider Instructions for Treatment How to Access Health Informa tion Online using Patient Portal and [employer] Apps Indication:BMI 40.0-44.9, adult Start:20-Mar-2021 Instruction Type:Patient Education Patient Instructions Indication:Type 2 diabetes mellitus Start:13-Dec-2020 Instruction Type:Provider Instructions for Treatment How to Access Health Informa tion Online using Patient Portal and [employer] Apps Indication:Type 2 diabetes mellitus Start:13-Dec-2020 Instruction Type:Patient Education Patient Instructions Indication:Type 2 diabetes mellitus Start:15-Sep-2020 Instruction Type:Provider Instructions for Treatment How to Access Health Informa tion Online using Patient Portal and [employer] Apps Indication:Type 2 diabetes mellitus Start:15-Sep-2020 Instruction Type:Patient Education [facility]; [facility] Work Phone: Instructions* Name Dates Details Patient Instructions Indication:Morbid obesity Start:31-Dec-2021 Instruction Type:Provider Instructions for Treatment How to Access Health Informa tion Online using Patient Portal and [employer] Apps Indication:Morbid obesity Start:31-Dec-2021 Instruction Type:Patient Education Patient Instructions Indication:BMI 40.0-44.9, adult Start:17-Oct-2021 Instruction Type:Provider Instructions for Treatment How to Access Health Informa tion Online using Patient Portal and [employer] Apps Indication:BMI 40.0-44.9, adult Start:17-Oct-2021 Instruction Type:Patient Education Patient Instructions Indication:BMI 40.0-44.9, adult Start:10-Oct-2021 Instruction Type:Provider Instructions for Treatment How to Access Health Informa tion Online using Patient Portal and [employer] Apps Indication:BMI 40.0-44.9, adult Start:10-Oct-2021 Instruction Type:Patient Education Patient Instructions Indication:Cellulitis Start:03-Oct-2021 Instruction Type:Provider Instructions for Treatment Patient Instructions Indication:BMI 40.0-44.9, adult Start:26-Sep-2021 Instruction Type:Provider Instructions for Treatment How to Access Health Informa tion Online using Patient Portal and [employer] Indication:BMI 40.0-44.9, adult Start:26-Sep-2021 Instruction Type:Patient Education Patient Instructions Indication:Nonsmoker Start:10-Aug-2021 Instruction Type:Provider Instructions for Treatment How to Access Health Informa tion Online using Patient Portal and [employer] Apps Indication:Hypertension Start:10-Aug-2021 Instruction Type:Patient Education Patient Instructions Indication:BMI 40.0-44.9, adult Start:09-Aug-2021 Instruction Type:Provider Instructions for Treatment How to Access Health Informa tion Online using Patient Portal and [employer] Apps Indication:BMI 40.0-44.9, adult Start:09-Aug-2021 Instruction Type:Patient Education Patient Instructions Indication:Nonsmoker Start:28-May-2021 Instruction Type:Provider Instructions for Treatment How to Access Health Informa tion Online using Patient Portal and [employer] Apps Indication:Nonsmoker Start:28-May-2021 Instruction Type:Patient Education Patient Instructions Indication:BMI 40.0-44.9, adult Start:04-Apr-2021 Instruction Type:Provider Instructions for Treatment How to Access Health Informa tion Online using Patient Portal and [employer] Indication:BMI 40.0-44.9, adult Start:04-Apr-2021 Instruction Type:Patient Education Patient Instructions Indication:BMI 40.0-44.9, adult Start:20-Mar-2021 Instruction Type:Provider Instructions for Treatment How to Access Health Informa tion Online using Patient Portal and [employer] Indication:BMI 40.0-44.9, adult Start:20-Mar-2021 Instruction Type:Patient Education Patient Instructions Indication:Type 2 diabetes mellitus Start:13-Dec-2020 Instruction Type:Provider Instructions for Treatment How to Access Health Informa tion Online using Patient Portal and [employer] Indication:Type 2 diabetes mellitus Start:13-Dec-2020 Instruction Type:Patient Education Patient Instructions Indication:Type 2 diabetes mellitus Start:15-Sep-2020 Instruction Type:Provider Instructions for Treatment How to Access Health Informa tion Online using Patient Portal and [employer] Apps Indication:Type 2 diabetes mellitus Start:15-Sep-2020 Instruction Type:Patient Education [facility]; [facility] Work Phone: Instructions* Name Dates Details Patient Instructions Indication:Morbid obesity Start:31-Dec-2021 Instruction Type:Provider Instructions for Treatment How to Access Health Informa tion Online using Patient Portal and [employer] Apps Indication:Morbid obesity Start:31-Dec-2021 Instruction Type:Patient Education Patient Instructions Indication:BMI 40.0-44.9, adult Start:17-Oct-2021 Instruction Type:Provider Instructions for Treatment How to Access Health Informa tion Online using Patient Portal and [employer] Indication:BMI 40.0-44.9, adult Start:17-Oct-2021 Instruction Type:Patient Education Patient Instructions Indication:BMI 40.0-44.9, adult Start:10-Oct-2021 Instruction Type:Provider Instructions for Treatment How to Access Health Informa tion Online using Patient Portal and [employer] Indication:BMI 40.0-44.9, adult Start:10-Oct-2021 Instruction Type:Patient Education Patient Instructions Indication:Cellulitis Start:03-Oct-2021 Instruction Type:Provider Instructions for Treatment Patient Instructions Indication:BMI 40.0-44.9, adult Start:26-Sep-2021 Instruction Type:Provider Instructions for Treatment How to Access Health Informa tion Online using Patient Portal and [employer] Indication:BMI 40.0-44.9, adult Start:26-Sep-2021 Instruction Type:Patient Education Patient Instructions Indication:Nonsmoker Start:10-Aug-2021 Instruction Type:Provider Instructions for Treatment How to Access Health Informa tion Online using Patient Portal and [employer] Apps Indication:Hypertension Start:10-Aug-2021 Instruction Type:Patient Education Patient Instructions Indication:BMI 40.0-44.9, adult Start:09-Aug-2021 Instruction Type:Provider Instructions for Treatment How to Access Health Informa tion Online using Patient Portal and [employer] Indication:BMI 40.0-44.9, adult Start:09-Aug-2021 Instruction Type:Patient Education Patient Instructions Indication:Nonsmoker Start:28-May-2021 Instruction Type:Provider Instructions for Treatment How to Access Health Informa tion Online using Patient Portal and [employer] Indication:Nonsmoker Start:28-May-2021 Instruction Type:Patient Education Patient Instructions Indication:BMI 40.0-44.9, adult Start:04-Apr-2021 Instruction Type:Provider Instructions for Treatment How to Access Health Informa tion Online using Patient Portal and [employer] Indication:BMI 40.0-44.9, adult Start:04-Apr-2021 Instruction Type:Patient Education Patient Instructions Indication:BMI 40.0-44.9, adult Start:20-Mar-2021 Instruction Type:Provider Instructions for Treatment How to Access Health Informa tion Online using Patient Portal and [employer] Indication:BMI 40.0-44.9, adult Start:20-Mar-2021 Instruction Type:Patient Education Patient Instructions Indication:Type 2 diabetes mellitus Start:13-Dec-2020 Instruction Type:Provider Instructions for Treatment How to Access Health Informa tion Online using Patient Portal and [employer] Indication:Type 2 diabetes mellitus Start:13-Dec-2020 Instruction Type:Patient Education Patient Instructions Indication:Type 2 diabetes mellitus Start:15-Sep-2020 Instruction Type:Provider Instructions for Treatment How to Access Health Informa tion Online using Patient Portal and [employer] Indication:Type 2 diabetes mellitus Start:15-Sep-2020 Instruction Type:Patient Education [facility]; [facility] Work Phone: Instructions* Name Dates Details Patient Instructions Indication:Morbid obesity Start:18-Feb-2022 Instruction Type:Provider Instructions for Treatment How to Access Health Informa tion Online using Patient Portal and [employer] Apps Indication:Morbid obesity Start:18-Feb-2022 Instruction Type:Patient Education Patient Instructions Indication:Morbid obesity Start:31-Dec-2021 Instruction Type:Provider Instructions for Treatment How to Access Health Informa tion Online using Patient Portal and [employer] Indication:Morbid obesity Start:31-Dec-2021 Instruction Type:Patient Education Patient Instructions Indication:BMI 40.0-44.9, adult Start:17-Oct-2021 Instruction Type:Provider Instructions for Treatment How to Access Health Informa tion Online using Patient Portal and [employer] Indication:BMI 40.0-44.9, adult Start:17-Oct-2021 Instruction Type:Patient Education Patient Instructions Indication:BMI 40.0-44.9, adult Start:10-Oct-2021 Instruction Type:Provider Instructions for Treatment How to Access Health Informa tion Online using Patient Portal and [employer]rd [employer] Apps Indication:BMI 40.0-44.9, adult Start:10-Oct-2021 Instruction Type:Patient Education Patient Instructions Indication:Cellulitis Start:03-Oct-2021 Instruction Type:Provider Instructions for Treatment Patient Instructions Indication:BMI 40.0-44.9, adult Start:26-Sep-2021 Instruction Type:Provider Instructions for Treatment How to Access Health Informa tion Online using Patient Portal and [employer]rd [employer] Apps Indication:BMI 40.0-44.9, adult Start:26-Sep-2021 Instruction Type:Patient Education Patient Instructions Indication:Nonsmoker Start:10-Aug-2021 Instruction Type:Provider Instructions for Treatment How to Access Health Informa tion Online using Patient Portal and [employer]rd [employer] Apps Indication:Hypertension Start:10-Aug-2021 Instruction Type:Patient Education Patient Instructions Indication:BMI 40.0-44.9, adult Start:09-Aug-2021 Instruction Type:Provider Instructions for Treatment How to Access Health Informa tion Online using Patient Portal and [employer]rd [employer] Apps Indication:BMI 40.0-44.9, adult Start:09-Aug-2021 Instruction Type:Patient Education Patient Instructions Indication:Nonsmoker Start:28-May-2021 Instruction Type:Provider Instructions for Treatment How to Access Health Informa tion Online using Patient Portal and [employer]rd [employer] Apps Indication:Nonsmoker Start:28-May-2021 Instruction Type:Patient Education Patient Instructions Indication:BMI 40.0-44.9, adult Start:04-Apr-2021 Instruction Type:Provider Instructions for Treatment How to Access Health Informa tion Online using Patient Portal and [employer]rd [employer] Apps Indication:BMI 40.0-44.9, adult Start:04-Apr-2021 Instruction Type:Patient Education Patient Instructions Indication:BMI 40.0-44.9, adult Start:20-Mar-2021 Instruction Type:Provider Instructions for Treatment How to Access Health Informa tion Online using Patient Portal and [employer]rd [employer] Apps Indication:BMI 40.0-44.9, adult Start:20-Mar-2021 Instruction Type:Patient Education Patient Instructions Indication:Type 2 diabetes mellitus Start:13-Dec-2020 Instruction Type:Provider Instructions for Treatment How to Access Health Informa tion Online using Patient Portal and [employer]rd [employer] Apps Indication:Type 2 diabetes mellitus Start:13-Dec-2020 Instruction Type:Patient Education Patient Instructions Indication:Type 2 diabetes mellitus Start:15-Sep-2020 Instruction Type:Provider Instructions for Treatment How to Access Health Informa tion Online using Patient Portal and [employer]rd [employer] Apps Indication:Type 2 diabetes mellitus Start:15-Sep-2020 Instruction Type:Patient Education [facility]; [facility] Work Phone: Instructions* Name Dates Details Patient Instructions Indication:Morbid obesity Start:18-Feb-2022 Instruction Type:Provider Instructions for Treatment How to Access Health Informa tion Online using Patient Portal and [employer]rd [employer] Apps Indication:Morbid obesity Start:18-Feb-2022 Instruction Type:Patient Education Patient Instructions Indication:Morbid obesity Start:31-Dec-2021 Instruction Type:Provider Instructions for Treatment How to Access Health Informa tion Online using Patient Portal and [employer]rd [employer] Apps Indication:Morbid obesity Start:31-Dec-2021 Instruction Type:Patient Education Patient Instructions Indication:BMI 40.0-44.9, adult Start:17-Oct-2021 Instruction Type:Provider Instructions for Treatment How to Access Health Informa tion Online using Patient Portal and [employer] Apps Indication:BMI 40.0-44.9, adult Start:17-Oct-2021 Instruction Type:Patient Education Patient Instructions Indication:BMI 40.0-44.9, adult Start:10-Oct-2021 Instruction Type:Provider Instructions for Treatment How to Access Health Informa tion Online using Patient Portal and [employer] Apps Indication:BMI 40.0-44.9, adult Start:10-Oct-2021 Instruction Type:Patient Education Patient Instructions Indication:Cellulitis Start:03-Oct-2021 Instruction Type:Provider Instructions for Treatment Patient Instructions Indication:BMI 40.0-44.9, adult Start:26-Sep-2021 Instruction Type:Provider Instructions for Treatment How to Access Health Informa tion Online using Patient Portal and [employer] Apps Indication:BMI 40.0-44.9, adult Start:26-Sep-2021 Instruction Type:Patient Education Patient Instructions Indication:Nonsmoker Start:10-Aug-2021 Instruction Type:Provider Instructions for Treatment How to Access Health Informa tion Online using Patient Portal and [employer] Apps Indication:Hypertension Start:10-Aug-2021 Instruction Type:Patient Education Patient Instructions Indication:BMI 40.0-44.9, adult Start:09-Aug-2021 Instruction Type:Provider Instructions for Treatment How to Access Health Informa tion Online using Patient Portal and [employer] Apps Indication:BMI 40.0-44.9, adult Start:09-Aug-2021 Instruction Type:Patient Education Patient Instructions Indication:Nonsmoker Start:28-May-2021 Instruction Type:Provider Instructions for Treatment How to Access Health Informa tion Online using Patient Portal and [employer] Apps Indication:Nonsmoker Start:28-May-2021 Instruction Type:Patient Education Patient Instructions Indication:BMI 40.0-44.9, adult Start:04-Apr-2021 Instruction Type:Provider Instructions for Treatment How to Access Health Informa tion Online using Patient Portal and [employer] Apps Indication:BMI 40.0-44.9, adult Start:04-Apr-2021 Instruction Type:Patient Education Patient Instructions Indication:BMI 40.0-44.9, adult Start:20-Mar-2021 Instruction Type:Provider Instructions for Treatment How to Access Health Informa tion Online using Patient Portal and [employer] Apps Indication:BMI 40.0-44.9, adult Start:20-Mar-2021 Instruction Type:Patient Education Patient Instructions Indication:Type 2 diabetes mellitus Start:13-Dec-2020 Instruction Type:Provider Instructions for Treatment How to Access Health Informa tion Online using Patient Portal and [employer] Apps Indication:Type 2 diabetes mellitus Start:13-Dec-2020 Instruction Type:Patient Education Patient Instructions Indication:Type 2 diabetes mellitus Start:15-Sep-2020 Instruction Type:Provider Instructions for Treatment How to Access Health Informa tion Online using Patient Portal and [employer] Apps Indication:Type 2 diabetes mellitus Start:15-Sep-2020 Instruction Type:Patient Education [facility]; [facility] Work Phone: Instructions* Name Dates Details Patient Instructions Indication:Morbid obesity Start:18-Feb-2022 Instruction Type:Provider Instructions for Treatment How to Access Health Informa tion Online using Patient Portal and [employer] Apps Indication:Morbid obesity Start:18-Feb-2022 Instruction Type:Patient Education Patient Instructions Indication:Morbid obesity Start:31-Dec-2021 Instruction Type:Provider Instructions for Treatment How to Access Health Informa tion Online using Patient Portal and [employer] Apps Indication:Morbid obesity Start:31-Dec-2021 Instruction Type:Patient Education Patient Instructions Indication:BMI 40.0-44.9, adult Start:17-Oct-2021 Instruction Type:Provider Instructions for Treatment How to Access Health Informa tion Online using Patient Portal and [employer] Apps Indication:BMI 40.0-44.9, adult Start:17-Oct-2021 Instruction Type:Patient Education Patient Instructions Indication:BMI 40.0-44.9, adult Start:10-Oct-2021 Instruction Type:Provider Instructions for Treatment How to Access Health Informa tion Online using Patient Portal and [employer] Apps Indication:BMI 40.0-44.9, adult Start:10-Oct-2021 Instruction Type:Patient Education Patient Instructions Indication:Cellulitis Start:03-Oct-2021 Instruction Type:Provider Instructions for Treatment Patient Instructions Indication:BMI 40.0-44.9, adult Start:26-Sep-2021 Instruction Type:Provider Instructions for Treatment How to Access Health Informa tion Online using Patient Portal and [employer] Apps Indication:BMI 40.0-44.9, adult Start:26-Sep-2021 Instruction Type:Patient Education Patient Instructions Indication:Nonsmoker Start:10-Aug-2021 Instruction Type:Provider Instructions for Treatment How to Access Health Informa tion Online using Patient Portal and [employer] Apps Indication:Hypertension Start:10-Aug-2021 Instruction Type:Patient Education Patient Instructions Indication:BMI 40.0-44.9, adult Start:09-Aug-2021 Instruction Type:Provider Instructions for Treatment How to Access Health Informa tion Online using Patient Portal and [employer] Apps Indication:BMI 40.0-44.9, adult Start:09-Aug-2021 Instruction Type:Patient Education Patient Instructions Indication:Nonsmoker Start:28-May-2021 Instruction Type:Provider Instructions for Treatment How to Access Health Informa tion Online using Patient Portal and [employer] Apps Indication:Nonsmoker Start:28-May-2021 Instruction Type:Patient Education Patient Instructions Indication:BMI 40.0-44.9, adult Start:04-Apr-2021 Instruction Type:Provider Instructions for Treatment How to Access Health Informa tion Online using Patient Portal and [employer] Apps Indication:BMI 40.0-44.9, adult Start:04-Apr-2021 Instruction Type:Patient Education Patient Instructions Indication:BMI 40.0-44.9, adult Start:20-Mar-2021 Instruction Type:Provider Instructions for Treatment How to Access Health Informa tion Online using Patient Portal and [employer] Apps Indication:BMI 40.0-44.9, adult Start:20-Mar-2021 Instruction Type:Patient Education Patient Instructions Indication:Type 2 diabetes mellitus Start:13-Dec-2020 Instruction Type:Provider Instructions for Treatment How to Access Health Informa tion Online using Patient Portal and [employer] Apps Indication:Type 2 diabetes mellitus Start:13-Dec-2020 Instruction Type:Patient Education Patient Instructions Indication:Type 2 diabetes mellitus Start:15-Sep-2020 Instruction Type:Provider Instructions for Treatment How to Access Health Informa tion Online using Patient Portal and [employer] Apps Indication:Type 2 diabetes mellitus Start:15-Sep-2020 Instruction Type:Patient Education [facility]; [facility] Work Phone: Instructions* Name Dates Details Patient Instructions Indication:Nonsmoker Start:14-Mar-2022 Instruction Type:Provider Instructions for Treatment How to Access Health Informa tion Online using Patient Portal and [employer] Apps Indication:Nonsmoker Start:14-Mar-2022 Instruction Type:Patient Education Patient Instructions Indication:Nonsmoker Start:07-Mar-2022 Instruction Type:Provider Instructions for Treatment How to Access Health Informa tion Online using Patient Portal and [employer] Apps Indication:Nonsmoker Start:07-Mar-2022 Instruction Type:Patient Education Patient Instructions Indication:Morbid obesity Start:18-Feb-2022 Instruction Type:Provider Instructions for Treatment How to Access Health Informa tion Online using Patient Portal and [employer] Apps Indication:Morbid obesity Start:18-Feb-2022 Instruction Type:Patient Education Patient Instructions Indication:Morbid obesity Start:31-Dec-2021 Instruction Type:Provider Instructions for Treatment How to Access Health Informa tion Online using Patient Portal and [employer] Apps Indication:Morbid obesity Start:31-Dec-2021 Instruction Type:Patient Education Patient Instructions Indication:BMI 40.0-44.9, adult Start:17-Oct-2021 Instruction Type:Provider Instructions for Treatment How to Access Health Informa tion Online using Patient Portal and [employer] Apps Indication:BMI 40.0-44.9, adult Start:17-Oct-2021 Instruction Type:Patient Education Patient Instructions Indication:BMI 40.0-44.9, adult Start:10-Oct-2021 Instruction Type:Provider Instructions for Treatment How to Access Health Informa tion Online using Patient Portal and [employer] Apps Indication:BMI 40.0-44.9, adult Start:10-Oct-2021 Instruction Type:Patient Education Patient Instructions Indication:Cellulitis Start:03-Oct-2021 Instruction Type:Provider Instructions for Treatment Patient Instructions Indication:BMI 40.0-44.9, adult Start:26-Sep-2021 Instruction Type:Provider Instructions for Treatment How to Access Health Informa tion Online using Patient Portal and [employer] Apps Indication:BMI 40.0-44.9, adult Start:26-Sep-2021 Instruction Type:Patient Education Patient Instructions Indication:Nonsmoker Start:10-Aug-2021 Instruction Type:Provider Instructions for Treatment How to Access Health Informa tion Online using Patient Portal and [employer] Apps Indication:Hypertension Start:10-Aug-2021 Instruction Type:Patient Education Patient Instructions Indication:BMI 40.0-44.9, adult Start:09-Aug-2021 Instruction Type:Provider Instructions for Treatment How to Access Health Informa tion Online using Patient Portal and [employer] Apps Indication:BMI 40.0-44.9, adult Start:09-Aug-2021 Instruction Type:Patient Education Patient Instructions Indication:Nonsmoker Start:28-May-2021 Instruction Type:Provider Instructions for Treatment How to Access Health Informa tion Online using Patient Portal and [employer] Apps Indication:Nonsmoker Start:28-May-2021 Instruction Type:Patient Education Patient Instructions Indication:BMI 40.0-44.9, adult Start:04-Apr-2021 Instruction Type:Provider Instructions for Treatment How to Access Health Informa tion Online using Patient Portal and [employer] Apps Indication:BMI 40.0-44.9, adult Start:04-Apr-2021 Instruction Type:Patient Education Patient Instructions Indication:BMI 40.0-44.9, adult Start:20-Mar-2021 Instruction Type:Provider Instructions for Treatment How to Access Health Informa tion Online using Patient Portal and [employer] Apps Indication:BMI 40.0-44.9, adult Start:20-Mar-2021 Instruction Type:Patient Education Patient Instructions Indication:Type 2 diabetes mellitus Start:13-Dec-2020 Instruction Type:Provider Instructions for Treatment How to Access Health Informa tion Online using Patient Portal and [employer] Apps Indication:Type 2 diabetes mellitus Start:13-Dec-2020 Instruction Type:Patient Education Patient Instructions Indication:Type 2 diabetes mellitus Start:15-Sep-2020 Instruction Type:Provider Instructions for Treatment How to Access Health Informa tion Online using Patient Portal and [employer] Apps Indication:Type 2 diabetes mellitus Start:15-Sep-2020 Instruction Type:Patient Education [facility]; [facility] Work Phone: Instructions* Name Dates Details Patient Instructions Indication:Nonsmoker Start:14-Mar-2022 Instruction Type:Provider Instructions for Treatment How to Access Health Informa tion Online using Patient Portal and [employer] Apps Indication:Nonsmoker Start:14-Mar-2022 Instruction Type:Patient Education Patient Instructions Indication:Nonsmoker Start:07-Mar-2022 Instruction Type:Provider Instructions for Treatment How to Access Health Informa tion Online using Patient Portal and [employer] Apps Indication:Nonsmoker Start:07-Mar-2022 Instruction Type:Patient Education Patient Instructions Indication:Morbid obesity Start:18-Feb-2022 Instruction Type:Provider Instructions for Treatment How to Access Health Informa tion Online using Patient Portal and [employer] Apps Indication:Morbid obesity Start:18-Feb-2022 Instruction Type:Patient Education Patient Instructions Indication:Morbid obesity Start:31-Dec-2021 Instruction Type:Provider Instructions for Treatment How to Access Health Informa tion Online using Patient Portal and [employer] Apps Indication:Morbid obesity Start:31-Dec-2021 Instruction Type:Patient Education Patient Instructions Indication:BMI 40.0-44.9, adult Start:17-Oct-2021 Instruction Type:Provider Instructions for Treatment How to Access Health Informa tion Online using Patient Portal and [employer] Apps Indication:BMI 40.0-44.9, adult Start:17-Oct-2021 Instruction Type:Patient Education Patient Instructions Indication:BMI 40.0-44.9, adult Start:10-Oct-2021 Instruction Type:Provider Instructions for Treatment How to Access Health Informa tion Online using Patient Portal and [employer] Apps Indication:BMI 40.0-44.9, adult Start:10-Oct-2021 Instruction Type:Patient Education Patient Instructions Indication:Cellulitis Start:03-Oct-2021 Instruction Type:Provider Instructions for Treatment Patient Instructions Indication:BMI 40.0-44.9, adult Start:26-Sep-2021 Instruction Type:Provider Instructions for Treatment How to Access Health Informa tion Online using Patient Portal and [employer] Apps Indication:BMI 40.0-44.9, adult Start:26-Sep-2021 Instruction Type:Patient Education Patient Instructions Indication:Nonsmoker Start:10-Aug-2021 Instruction Type:Provider Instructions for Treatment How to Access Health Informa tion Online using Patient Portal and [employer] Apps Indication:Hypertension Start:10-Aug-2021 Instruction Type:Patient Education Patient Instructions Indication:BMI 40.0-44.9, adult Start:09-Aug-2021 Instruction Type:Provider Instructions for Treatment How to Access Health Informa tion Online using Patient Portal and [employer] Apps Indication:BMI 40.0-44.9, adult Start:09-Aug-2021 Instruction Type:Patient Education Patient Instructions Indication:Nonsmoker Start:28-May-2021 Instruction Type:Provider Instructions for Treatment How to Access Health Informa tion Online using Patient Portal and [employer] Apps Indication:Nonsmoker Start:28-May-2021 Instruction Type:Patient Education Patient Instructions Indication:BMI 40.0-44.9, adult Start:04-Apr-2021 Instruction Type:Provider Instructions for Treatment How to Access Health Informa tion Online using Patient Portal and [employer] Apps Indication:BMI 40.0-44.9, adult Start:04-Apr-2021 Instruction Type:Patient Education Patient Instructions Indication:BMI 40.0-44.9, adult Start:20-Mar-2021 Instruction Type:Provider Instructions for Treatment How to Access Health Informa tion Online using Patient Portal and [employer] Apps Indication:BMI 40.0-44.9, adult Start:20-Mar-2021 Instruction Type:Patient Education Patient Instructions Indication:Type 2 diabetes mellitus Start:13-Dec-2020 Instruction Type:Provider Instructions for Treatment How to Access Health Informa tion Online using Patient Portal and [employer] Apps Indication:Type 2 diabetes mellitus Start:13-Dec-2020 Instruction Type:Patient Education Patient Instructions Indication:Type 2 diabetes mellitus Start:15-Sep-2020 Instruction Type:Provider Instructions for Treatment How to Access Health Informa tion Online using Patient Portal and [employer]rd [employer] Apps Indication:Type 2 diabetes mellitus Start:15-Sep-2020 Instruction Type:Patient Education [facility]; [facility] Work Phone: Instructions* Name Dates Details Patient Instructions Indication:Nonsmoker Start:14-Mar-2022 Instruction Type:Provider Instructions for Treatment How to Access Health Informa tion Online using Patient Portal and [employer] Apps Indication:Nonsmoker Start:14-Mar-2022 Instruction Type:Patient Education Patient Instructions Indication:Nonsmoker Start:07-Mar-2022 Instruction Type:Provider Instructions for Treatment How to Access Health Informa tion Online using Patient Portal and [employer] Apps Indication:Nonsmoker Start:07-Mar-2022 Instruction Type:Patient Education Patient Instructions Indication:Morbid obesity Start:18-Feb-2022 Instruction Type:Provider Instructions for Treatment How to Access Health Informa tion Online using Patient Portal and [employer] Apps Indication:Morbid obesity Start:18-Feb-2022 Instruction Type:Patient Education Patient Instructions Indication:Morbid obesity Start:31-Dec-2021 Instruction Type:Provider Instructions for Treatment How to Access Health Informa tion Online using Patient Portal and [employer] Apps Indication:Morbid obesity Start:31-Dec-2021 Instruction Type:Patient Education Patient Instructions Indication:BMI 40.0-44.9, adult Start:17-Oct-2021 Instruction Type:Provider Instructions for Treatment How to Access Health Informa tion Online using Patient Portal and [employer] Apps Indication:BMI 40.0-44.9, adult Start:17-Oct-2021 Instruction Type:Patient Education Patient Instructions Indication:BMI 40.0-44.9, adult Start:10-Oct-2021 Instruction Type:Provider Instructions for Treatment How to Access Health Informa tion Online using Patient Portal and [employer]rd [employer] Apps Indication:BMI 40.0-44.9, adult Start:10-Oct-2021 Instruction Type:Patient Education Patient Instructions Indication:Cellulitis Start:03-Oct-2021 Instruction Type:Provider Instructions for Treatment Patient Instructions Indication:BMI 40.0-44.9, adult Start:26-Sep-2021 Instruction Type:Provider Instructions for Treatment How to Access Health Informa tion Online using Patient Portal and [employer]rd [employer] Apps Indication:BMI 40.0-44.9, adult Start:26-Sep-2021 Instruction Type:Patient Education Patient Instructions Indication:Nonsmoker Start:10-Aug-2021 Instruction Type:Provider Instructions for Treatment How to Access Health Informa tion Online using Patient Portal and [employer]rd [employer] Apps Indication:Hypertension Start:10-Aug-2021 Instruction Type:Patient Education Patient Instructions Indication:BMI 40.0-44.9, adult Start:09-Aug-2021 Instruction Type:Provider Instructions for Treatment How to Access Health Informa tion Online using Patient Portal and [employer] Apps Indication:BMI 40.0-44.9, adult Start:09-Aug-2021 Instruction Type:Patient Education Patient Instructions Indication:Nonsmoker Start:28-May-2021 Instruction Type:Provider Instructions for Treatment How to Access Health Informa tion Online using Patient Portal and [employer] Apps Indication:Nonsmoker Start:28-May-2021 Instruction Type:Patient Education Patient Instructions Indication:BMI 40.0-44.9, adult Start:04-Apr-2021 Instruction Type:Provider Instructions for Treatment How to Access Health Informa tion Online using Patient Portal and [employer] Apps Indication:BMI 40.0-44.9, adult Start:04-Apr-2021 Instruction Type:Patient Education Patient Instructions Indication:BMI 40.0-44.9, adult Start:20-Mar-2021 Instruction Type:Provider Instructions for Treatment How to Access Health Informa tion Online using Patient Portal and [employer] Apps Indication:BMI 40.0-44.9, adult Start:20-Mar-2021 Instruction Type:Patient Education Patient Instructions Indication:Type 2 diabetes mellitus Start:13-Dec-2020 Instruction Type:Provider Instructions for Treatment How to Access Health Informa tion Online using Patient Portal and [employer] Apps Indication:Type 2 diabetes mellitus Start:13-Dec-2020 Instruction Type:Patient Education Patient Instructions Indication:Type 2 diabetes mellitus Start:15-Sep-2020 Instruction Type:Provider Instructions for Treatment How to Access Health Informa tion Online using Patient Portal and [employer] Apps Indication:Type 2 diabetes mellitus Start:15-Sep-2020 Instruction Type:Patient Education [facility]; [facility] Work Phone: Instructions* Name Dates Details Patient Instructions Indication:Nonsmoker Start:14-Mar-2022 Instruction Type:Provider Instructions for Treatment How to Access Health Informa tion Online using Patient Portal and [employer] Apps Indication:Nonsmoker Start:14-Mar-2022 Instruction Type:Patient Education Patient Instructions Indication:Nonsmoker Start:07-Mar-2022 Instruction Type:Provider Instructions for Treatment How to Access Health Informa tion Online using Patient Portal and [employer] Apps Indication:Nonsmoker Start:07-Mar-2022 Instruction Type:Patient Education Patient Instructions Indication:Morbid obesity Start:18-Feb-2022 Instruction Type:Provider Instructions for Treatment How to Access Health Informa tion Online using Patient Portal and [employer]rd [employer] Apps Indication:Morbid obesity Start:18-Feb-2022 Instruction Type:Patient Education Patient Instructions Indication:Morbid obesity Start:31-Dec-2021 Instruction Type:Provider Instructions for Treatment How to Access Health Informa tion Online using Patient Portal and [employer]rd [employer] Apps Indication:Morbid obesity Start:31-Dec-2021 Instruction Type:Patient Education Patient Instructions Indication:BMI 40.0-44.9, adult Start:17-Oct-2021 Instruction Type:Provider Instructions for Treatment How to Access Health Informa tion Online using Patient Portal and [employer]rd [employer] Apps Indication:BMI 40.0-44.9, adult Start:17-Oct-2021 Instruction Type:Patient Education Patient Instructions Indication:BMI 40.0-44.9, adult Start:10-Oct-2021 Instruction Type:Provider Instructions for Treatment How to Access Health Informa tion Online using Patient Portal and [employer]rd [employer] Apps Indication:BMI 40.0-44.9, adult Start:10-Oct-2021 Instruction Type:Patient Education Patient Instructions Indication:Cellulitis Start:03-Oct-2021 Instruction Type:Provider Instructions for Treatment Patient Instructions Indication:BMI 40.0-44.9, adult Start:26-Sep-2021 Instruction Type:Provider Instructions for Treatment How to Access Health Informa tion Online using Patient Portal and [employer]rd [employer] Apps Indication:BMI 40.0-44.9, adult Start:26-Sep-2021 Instruction Type:Patient Education Patient Instructions Indication:Nonsmoker Start:10-Aug-2021 Instruction Type:Provider Instructions for Treatment How to Access Health Informa tion Online using Patient Portal and [employer]rd [employer] Apps Indication:Hypertension Start:10-Aug-2021 Instruction Type:Patient Education Patient Instructions Indication:BMI 40.0-44.9, adult Start:09-Aug-2021 Instruction Type:Provider Instructions for Treatment How to Access Health Informa tion Online using Patient Portal and [employer]rd [employer] Apps Indication:BMI 40.0-44.9, adult Start:09-Aug-2021 Instruction Type:Patient Education Patient Instructions Indication:Nonsmoker Start:28-May-2021 Instruction Type:Provider Instructions for Treatment How to Access Health Informa tion Online using Patient Portal and [employer]rd [employer] Apps Indication:Nonsmoker Start:28-May-2021 Instruction Type:Patient Education Patient Instructions Indication:BMI 40.0-44.9, adult Start:04-Apr-2021 Instruction Type:Provider Instructions for Treatment How to Access Health Informa tion Online using Patient Portal and [employer] Apps Indication:BMI 40.0-44.9, adult Start:04-Apr-2021 Instruction Type:Patient Education Patient Instructions Indication:BMI 40.0-44.9, adult Start:20-Mar-2021 Instruction Type:Provider Instructions for Treatment How to Access Health Informa tion Online using Patient Portal and [employer]rd [employer] Apps Indication:BMI 40.0-44.9, adult Start:20-Mar-2021 Instruction Type:Patient Education Patient Instructions Indication:Type 2 diabetes mellitus Start:13-Dec-2020 Instruction Type:Provider Instructions for Treatment How to Access Health Informa tion Online using Patient Portal and [employer]rd [employer] Apps Indication:Type 2 diabetes mellitus Start:13-Dec-2020 Instruction Type:Patient Education Patient Instructions Indication:Type 2 diabetes mellitus Start:15-Sep-2020 Instruction Type:Provider Instructions for Treatment How to Access Health Informa tion Online using Patient Portal and [employer]rd [employer] Apps Indication:Type 2 diabetes mellitus Start:15-Sep-2020 Instruction Type:Patient Education [facility]; [facility] Work Phone: Instructions* Name Dates Details Patient Instructions Indication:Nonsmoker Start:10-May-2022 Instruction Type:Provider Instructions for Treatment How to Access Health Informa tion Online using Patient Portal and [employer]rd [employer] Apps Indication:Nonsmoker Start:10-May-2022 Instruction Type:Patient Education Patient Instructions Indication:Nonsmoker Start:14-Mar-2022 Instruction Type:Provider Instructions for Treatment How to Access Health Informa tion Online using Patient Portal and [employer] Apps Indication:Nonsmoker Start:14-Mar-2022 Instruction Type:Patient Education Patient Instructions Indication:Nonsmoker Start:07-Mar-2022 Instruction Type:Provider Instructions for Treatment How to Access Health Informa tion Online using Patient Portal and [employer] Apps Indication:Nonsmoker Start:07-Mar-2022 Instruction Type:Patient Education Patient Instructions Indication:Morbid obesity Start:18-Feb-2022 Instruction Type:Provider Instructions for Treatment How to Access Health Informa tion Online using Patient Portal and [employer]rd [employer] Apps Indication:Morbid obesity Start:18-Feb-2022 Instruction Type:Patient Education Patient Instructions Indication:Morbid obesity Start:31-Dec-2021 Instruction Type:Provider Instructions for Treatment How to Access Health Informa tion Online using Patient Portal and [employer] Apps Indication:Morbid obesity Start:31-Dec-2021 Instruction Type:Patient Education Patient Instructions Indication:BMI 40.0-44.9, adult Start:17-Oct-2021 Instruction Type:Provider Instructions for Treatment How to Access Health Informa tion Online using Patient Portal and [employer] Apps Indication:BMI 40.0-44.9, adult Start:17-Oct-2021 Instruction Type:Patient Education Patient Instructions Indication:BMI 40.0-44.9, adult Start:10-Oct-2021 Instruction Type:Provider Instructions for Treatment How to Access Health Informa tion Online using Patient Portal and [employer] Apps Indication:BMI 40.0-44.9, adult Start:10-Oct-2021 Instruction Type:Patient Education Patient Instructions Indication:Cellulitis Start:03-Oct-2021 Instruction Type:Provider Instructions for Treatment Patient Instructions Indication:BMI 40.0-44.9, adult Start:26-Sep-2021 Instruction Type:Provider Instructions for Treatment How to Access Health Informa tion Online using Patient Portal and [employer] Apps Indication:BMI 40.0-44.9, adult Start:26-Sep-2021 Instruction Type:Patient Education Patient Instructions Indication:Nonsmoker Start:10-Aug-2021 Instruction Type:Provider Instructions for Treatment How to Access Health Informa tion Online using Patient Portal and [employer] Apps Indication:Hypertension Start:10-Aug-2021 Instruction Type:Patient Education Patient Instructions Indication:BMI 40.0-44.9, adult Start:09-Aug-2021 Instruction Type:Provider Instructions for Treatment How to Access Health Informa tion Online using Patient Portal and [employer] Apps Indication:BMI 40.0-44.9, adult Start:09-Aug-2021 Instruction Type:Patient Education Patient Instructions Indication:Nonsmoker Start:28-May-2021 Instruction Type:Provider Instructions for Treatment How to Access Health Informa tion Online using Patient Portal and [employer] Apps Indication:Nonsmoker Start:28-May-2021 Instruction Type:Patient Education Patient Instructions Indication:BMI 40.0-44.9, adult Start:04-Apr-2021 Instruction Type:Provider Instructions for Treatment How to Access Health Informa tion Online using Patient Portal and [employer] Apps Indication:BMI 40.0-44.9, adult Start:04-Apr-2021 Instruction Type:Patient Education Patient Instructions Indication:BMI 40.0-44.9, adult Start:20-Mar-2021 Instruction Type:Provider Instructions for Treatment How to Access Health Informa tion Online using Patient Portal and [employer] Apps Indication:BMI 40.0-44.9, adult Start:20-Mar-2021 Instruction Type:Patient Education Patient Instructions Indication:Type 2 diabetes mellitus Start:13-Dec-2020 Instruction Type:Provider Instructions for Treatment How to Access Health Informa tion Online using Patient Portal and [employer] Apps Indication:Type 2 diabetes mellitus Start:13-Dec-2020 Instruction Type:Patient Education Patient Instructions Indication:Type 2 diabetes mellitus Start:15-Sep-2020 Instruction Type:Provider Instructions for Treatment How to Access Health Informa tion Online using Patient Portal and [employer] Apps Indication:Type 2 diabetes mellitus Start:15-Sep-2020 Instruction Type:Patient Education [facility]; [facility] Work Phone: Instructions* Name Dates Details Patient Instructions Indication:Nonsmoker Start:10-May-2022 Instruction Type:Provider Instructions for Treatment How to Access Health Informa tion Online using Patient Portal and [employer] Apps Indication:Nonsmoker Start:10-May-2022 Instruction Type:Patient Education Patient Instructions Indication:Nonsmoker Start:14-Mar-2022 Instruction Type:Provider Instructions for Treatment How to Access Health Informa tion Online using Patient Portal and [employer] Apps Indication:Nonsmoker Start:14-Mar-2022 Instruction Type:Patient Education Patient Instructions Indication:Nonsmoker Start:07-Mar-2022 Instruction Type:Provider Instructions for Treatment How to Access Health Informa tion Online using Patient Portal and [employer] Apps Indication:Nonsmoker Start:07-Mar-2022 Instruction Type:Patient Education Patient Instructions Indication:Morbid obesity Start:18-Feb-2022 Instruction Type:Provider Instructions for Treatment How to Access Health Informa tion Online using Patient Portal and [employer] Apps Indication:Morbid obesity Start:18-Feb-2022 Instruction Type:Patient Education Patient Instructions Indication:Morbid obesity Start:31-Dec-2021 Instruction Type:Provider Instructions for Treatment How to Access Health Informa tion Online using Patient Portal and [employer] Apps Indication:Morbid obesity Start:31-Dec-2021 Instruction Type:Patient Education Patient Instructions Indication:BMI 40.0-44.9, adult Start:17-Oct-2021 Instruction Type:Provider Instructions for Treatment How to Access Health Informa tion Online using Patient Portal and [employer] Apps Indication:BMI 40.0-44.9, adult Start:17-Oct-2021 Instruction Type:Patient Education Patient Instructions Indication:BMI 40.0-44.9, adult Start:10-Oct-2021 Instruction Type:Provider Instructions for Treatment How to Access Health Informa tion Online using Patient Portal and [employer] Apps Indication:BMI 40.0-44.9, adult Start:10-Oct-2021 Instruction Type:Patient Education Patient Instructions Indication:Cellulitis Start:03-Oct-2021 Instruction Type:Provider Instructions for Treatment Patient Instructions Indication:BMI 40.0-44.9, adult Start:26-Sep-2021 Instruction Type:Provider Instructions for Treatment How to Access Health Informa tion Online using Patient Portal and [employer] Apps Indication:BMI 40.0-44.9, adult Start:26-Sep-2021 Instruction Type:Patient Education Patient Instructions Indication:Nonsmoker Start:10-Aug-2021 Instruction Type:Provider Instructions for Treatment How to Access Health Informa tion Online using Patient Portal and [employer] Apps Indication:Hypertension Start:10-Aug-2021 Instruction Type:Patient Education Patient Instructions Indication:BMI 40.0-44.9, adult Start:09-Aug-2021 Instruction Type:Provider Instructions for Treatment How to Access Health Informa tion Online using Patient Portal and [employer] Apps Indication:BMI 40.0-44.9, adult Start:09-Aug-2021 Instruction Type:Patient Education Patient Instructions Indication:Nonsmoker Start:28-May-2021 Instruction Type:Provider Instructions for Treatment How to Access Health Informa tion Online using Patient Portal and [employer] Apps Indication:Nonsmoker Start:28-May-2021 Instruction Type:Patient Education Patient Instructions Indication:BMI 40.0-44.9, adult Start:04-Apr-2021 Instruction Type:Provider Instructions for Treatment How to Access Health Informa tion Online using Patient Portal and [employer] Apps Indication:BMI 40.0-44.9, adult Start:04-Apr-2021 Instruction Type:Patient Education Patient Instructions Indication:BMI 40.0-44.9, adult Start:20-Mar-2021 Instruction Type:Provider Instructions for Treatment How to Access Health Informa tion Online using Patient Portal and [employer] Apps Indication:BMI 40.0-44.9, adult Start:20-Mar-2021 Instruction Type:Patient Education Patient Instructions Indication:Type 2 diabetes mellitus Start:13-Dec-2020 Instruction Type:Provider Instructions for Treatment How to Access Health Informa tion Online using Patient Portal and [employer] Apps Indication:Type 2 diabetes mellitus Start:13-Dec-2020 Instruction Type:Patient Education Patient Instructions Indication:Type 2 diabetes mellitus Start:15-Sep-2020 Instruction Type:Provider Instructions for Treatment How to Access Health Informa tion Online using Patient Portal and [employer] Apps Indication:Type 2 diabetes mellitus Start:15-Sep-2020 Instruction Type:Patient Education [facility]; [facility] Work Phone: Instructions* Name Dates Details Patient Instructions Indication:Nonsmoker Start:10-May-2022 Instruction Type:Provider Instructions for Treatment How to Access Health Informa tion Online using Patient Portal and [employer] Apps Indication:Nonsmoker Start:10-May-2022 Instruction Type:Patient Education Patient Instructions Indication:Nonsmoker Start:14-Mar-2022 Instruction Type:Provider Instructions for Treatment How to Access Health Informa tion Online using Patient Portal and [employer] Apps Indication:Nonsmoker Start:14-Mar-2022 Instruction Type:Patient Education Patient Instructions Indication:Nonsmoker Start:07-Mar-2022 Instruction Type:Provider Instructions for Treatment How to Access Health Informa tion Online using Patient Portal and [employer] Apps Indication:Nonsmoker Start:07-Mar-2022 Instruction Type:Patient Education Patient Instructions Indication:Morbid obesity Start:18-Feb-2022 Instruction Type:Provider Instructions for Treatment How to Access Health Informa tion Online using Patient Portal and [employer] Apps Indication:Morbid obesity Start:18-Feb-2022 Instruction Type:Patient Education Patient Instructions Indication:Morbid obesity Start:31-Dec-2021 Instruction Type:Provider Instructions for Treatment How to Access Health Informa tion Online using Patient Portal and [employer] Apps Indication:Morbid obesity Start:31-Dec-2021 Instruction Type:Patient Education Patient Instructions Indication:BMI 40.0-44.9, adult Start:17-Oct-2021 Instruction Type:Provider Instructions for Treatment How to Access Health Informa tion Online using Patient Portal and [employer] Apps Indication:BMI 40.0-44.9, adult Start:17-Oct-2021 Instruction Type:Patient Education Patient Instructions Indication:BMI 40.0-44.9, adult Start:10-Oct-2021 Instruction Type:Provider Instructions for Treatment How to Access Health Informa tion Online using Patient Portal and [employer]rd [employer] Apps Indication:BMI 40.0-44.9, adult Start:10-Oct-2021 Instruction Type:Patient Education Patient Instructions Indication:Cellulitis Start:03-Oct-2021 Instruction Type:Provider Instructions for Treatment Patient Instructions Indication:BMI 40.0-44.9, adult Start:26-Sep-2021 Instruction Type:Provider Instructions for Treatment How to Access Health Informa tion Online using Patient Portal and [employer] Apps Indication:BMI 40.0-44.9, adult Start:26-Sep-2021 Instruction Type:Patient Education Patient Instructions Indication:Nonsmoker Start:10-Aug-2021 Instruction Type:Provider Instructions for Treatment How to Access Health Informa tion Online using Patient Portal and [employer] Apps Indication:Hypertension Start:10-Aug-2021 Instruction Type:Patient Education Patient Instructions Indication:BMI 40.0-44.9, adult Start:09-Aug-2021 Instruction Type:Provider Instructions for Treatment How to Access Health Informa tion Online using Patient Portal and [employer] Apps Indication:BMI 40.0-44.9, adult Start:09-Aug-2021 Instruction Type:Patient Education Patient Instructions Indication:Nonsmoker Start:28-May-2021 Instruction Type:Provider Instructions for Treatment How to Access Health Informa tion Online using Patient Portal and [employer] Apps Indication:Nonsmoker Start:28-May-2021 Instruction Type:Patient Education Patient Instructions Indication:BMI 40.0-44.9, adult Start:04-Apr-2021 Instruction Type:Provider Instructions for Treatment How to Access Health Informa tion Online using Patient Portal and [employer] Apps Indication:BMI 40.0-44.9, adult Start:04-Apr-2021 Instruction Type:Patient Education Patient Instructions Indication:BMI 40.0-44.9, adult Start:20-Mar-2021 Instruction Type:Provider Instructions for Treatment How to Access Health Informa tion Online using Patient Portal and [employer] Apps Indication:BMI 40.0-44.9, adult Start:20-Mar-2021 Instruction Type:Patient Education Patient Instructions Indication:Type 2 diabetes mellitus Start:13-Dec-2020 Instruction Type:Provider Instructions for Treatment How to Access Health Informa tion Online using Patient Portal and [employer] Apps Indication:Type 2 diabetes mellitus Start:13-Dec-2020 Instruction Type:Patient Education Patient Instructions Indication:Type 2 diabetes mellitus Start:15-Sep-2020 Instruction Type:Provider Instructions for Treatment How to Access Health Informa tion Online using Patient Portal and [employer] Apps Indication:Type 2 diabetes mellitus Start:15-Sep-2020 Instruction Type:Patient Education [facility]; [facility] Work Phone: Instructions* Name Dates Details Patient Instructions Indication:Nonsmoker Start:10-May-2022 Instruction Type:Provider Instructions for Treatment How to Access Health Informa tion Online using Patient Portal and [employer]rd [employer] Apps Indication:Nonsmoker Start:10-May-2022 Instruction Type:Patient Education Patient Instructions Indication:Nonsmoker Start:14-Mar-2022 Instruction Type:Provider Instructions for Treatment How to Access Health Informa tion Online using Patient Portal and [employer]rd [employer] Apps Indication:Nonsmoker Start:14-Mar-2022 Instruction Type:Patient Education Patient Instructions Indication:Nonsmoker Start:07-Mar-2022 Instruction Type:Provider Instructions for Treatment How to Access Health Informa tion Online using Patient Portal and [employer] Apps Indication:Nonsmoker Start:07-Mar-2022 Instruction Type:Patient Education Patient Instructions Indication:Morbid obesity Start:18-Feb-2022 Instruction Type:Provider Instructions for Treatment How to Access Health Informa tion Online using Patient Portal and [employer] Apps Indication:Morbid obesity Start:18-Feb-2022 Instruction Type:Patient Education Patient Instructions Indication:Morbid obesity Start:31-Dec-2021 Instruction Type:Provider Instructions for Treatment How to Access Health Informa tion Online using Patient Portal and [employer] Apps Indication:Morbid obesity Start:31-Dec-2021 Instruction Type:Patient Education Patient Instructions Indication:BMI 40.0-44.9, adult Start:17-Oct-2021 Instruction Type:Provider Instructions for Treatment How to Access Health Informa tion Online using Patient Portal and [employer] Apps Indication:BMI 40.0-44.9, adult Start:17-Oct-2021 Instruction Type:Patient Education Patient Instructions Indication:BMI 40.0-44.9, adult Start:10-Oct-2021 Instruction Type:Provider Instructions for Treatment How to Access Health Informa tion Online using Patient Portal and [employer]rd [employer] Apps Indication:BMI 40.0-44.9, adult Start:10-Oct-2021 Instruction Type:Patient Education Patient Instructions Indication:Cellulitis Start:03-Oct-2021 Instruction Type:Provider Instructions for Treatment Patient Instructions Indication:BMI 40.0-44.9, adult Start:26-Sep-2021 Instruction Type:Provider Instructions for Treatment How to Access Health Informa tion Online using Patient Portal and [employer]rd [employer] Apps Indication:BMI 40.0-44.9, adult Start:26-Sep-2021 Instruction Type:Patient Education Patient Instructions Indication:Nonsmoker Start:10-Aug-2021 Instruction Type:Provider Instructions for Treatment How to Access Health Informa tion Online using Patient Portal and [employer]rd [employer] Apps Indication:Hypertension Start:10-Aug-2021 Instruction Type:Patient Education Patient Instructions Indication:BMI 40.0-44.9, adult Start:09-Aug-2021 Instruction Type:Provider Instructions for Treatment How to Access Health Informa tion Online using Patient Portal and [employer]rd [employer] Apps Indication:BMI 40.0-44.9, adult Start:09-Aug-2021 Instruction Type:Patient Education Patient Instructions Indication:Nonsmoker Start:28-May-2021 Instruction Type:Provider Instructions for Treatment How to Access Health Informa tion Online using Patient Portal and [employer] Apps Indication:Nonsmoker Start:28-May-2021 Instruction Type:Patient Education Patient Instructions Indication:BMI 40.0-44.9, adult Start:04-Apr-2021 Instruction Type:Provider Instructions for Treatment How to Access Health Informa tion Online using Patient Portal and [employer] Apps Indication:BMI 40.0-44.9, adult Start:04-Apr-2021 Instruction Type:Patient Education Patient Instructions Indication:BMI 40.0-44.9, adult Start:20-Mar-2021 Instruction Type:Provider Instructions for Treatment How to Access Health Informa tion Online using Patient Portal and [employer]rd [employer] Apps Indication:BMI 40.0-44.9, adult Start:20-Mar-2021 Instruction Type:Patient Education Patient Instructions Indication:Type 2 diabetes mellitus Start:13-Dec-2020 Instruction Type:Provider Instructions for Treatment How to Access Health Informa tion Online using Patient Portal and [employer] Apps Indication:Type 2 diabetes mellitus Start:13-Dec-2020 Instruction Type:Patient Education Patient Instructions Indication:Type 2 diabetes mellitus Start:15-Sep-2020 Instruction Type:Provider Instructions for Treatment How to Access Health Informa tion Online using Patient Portal and [employer] Apps Indication:Type 2 diabetes mellitus Start:15-Sep-2020 Instruction Type:Patient Education [facility]; [facility] Work Phone: Instructions* Name Dates Details Patient Instructions Indication:Nonsmoker Start:10-May-2022 Instruction Type:Provider Instructions for Treatment How to Access Health Informa tion Online using Patient Portal and [employer]rd [employer] Apps Indication:Nonsmoker Start:10-May-2022 Instruction Type:Patient Education Patient Instructions Indication:Nonsmoker Start:14-Mar-2022 Instruction Type:Provider Instructions for Treatment How to Access Health Informa tion Online using Patient Portal and [employer] Apps Indication:Nonsmoker Start:14-Mar-2022 Instruction Type:Patient Education Patient Instructions Indication:Nonsmoker Start:07-Mar-2022 Instruction Type:Provider Instructions for Treatment How to Access Health Informa tion Online using Patient Portal and [employer] Apps Indication:Nonsmoker Start:07-Mar-2022 Instruction Type:Patient Education Patient Instructions Indication:Morbid obesity Start:18-Feb-2022 Instruction Type:Provider Instructions for Treatment How to Access Health Informa tion Online using Patient Portal and [employer] Apps Indication:Morbid obesity Start:18-Feb-2022 Instruction Type:Patient Education Patient Instructions Indication:Morbid obesity Start:31-Dec-2021 Instruction Type:Provider Instructions for Treatment How to Access Health Informa tion Online using Patient Portal and [employer] Apps Indication:Morbid obesity Start:31-Dec-2021 Instruction Type:Patient Education Patient Instructions Indication:BMI 40.0-44.9, adult Start:17-Oct-2021 Instruction Type:Provider Instructions for Treatment How to Access Health Informa tion Online using Patient Portal and [employer] Apps Indication:BMI 40.0-44.9, adult Start:17-Oct-2021 Instruction Type:Patient Education Patient Instructions Indication:BMI 40.0-44.9, adult Start:10-Oct-2021 Instruction Type:Provider Instructions for Treatment How to Access Health Informa tion Online using Patient Portal and [employer] Indication:BMI 40.0-44.9, adult Start:10-Oct-2021 Instruction Type:Patient Education Patient Instructions Indication:Cellulitis Start:03-Oct-2021 Instruction Type:Provider Instructions for Treatment Patient Instructions Indication:BMI 40.0-44.9, adult Start:26-Sep-2021 Instruction Type:Provider Instructions for Treatment How to Access Health Informa tion Online using Patient Portal and [employer] Apps Indication:BMI 40.0-44.9, adult Start:26-Sep-2021 Instruction Type:Patient Education Patient Instructions Indication:Nonsmoker Start:10-Aug-2021 Instruction Type:Provider Instructions for Treatment How to Access Health Informa tion Online using Patient Portal and [employer] Indication:Hypertension Start:10-Aug-2021 Instruction Type:Patient Education Patient Instructions Indication:BMI 40.0-44.9, adult Start:09-Aug-2021 Instruction Type:Provider Instructions for Treatment How to Access Health Informa tion Online using Patient Portal and [employer] Indication:BMI 40.0-44.9, adult Start:09-Aug-2021 Instruction Type:Patient Education Patient Instructions Indication:Nonsmoker Start:28-May-2021 Instruction Type:Provider Instructions for Treatment How to Access Health Informa tion Online using Patient Portal and [employer] Indication:Nonsmoker Start:28-May-2021 Instruction Type:Patient Education Patient Instructions Indication:BMI 40.0-44.9, adult Start:04-Apr-2021 Instruction Type:Provider Instructions for Treatment How to Access Health Informa tion Online using Patient Portal and [employer] Indication:BMI 40.0-44.9, adult Start:04-Apr-2021 Instruction Type:Patient Education Patient Instructions Indication:BMI 40.0-44.9, adult Start:20-Mar-2021 Instruction Type:Provider Instructions for Treatment How to Access Health Informa tion Online using Patient Portal and [employer] Indication:BMI 40.0-44.9, adult Start:20-Mar-2021 Instruction Type:Patient Education Patient Instructions Indication:Type 2 diabetes mellitus Start:13-Dec-2020 Instruction Type:Provider Instructions for Treatment How to Access Health Informa tion Online using Patient Portal and [employer] Indication:Type 2 diabetes mellitus Start:13-Dec-2020 Instruction Type:Patient Education Patient Instructions Indication:Type 2 diabetes mellitus Start:15-Sep-2020 Instruction Type:Provider Instructions for Treatment How to Access Health Informa tion Online using Patient Portal and [employer] Indication:Type 2 diabetes mellitus Start:15-Sep-2020 Instruction Type:Patient Education [facility]; [facility] Work Phone: Instructions* Name Dates Details Patient Instructions Indication:Nonsmoker Start:10-May-2022 Instruction Type:Provider Instructions for Treatment How to Access Health Informa tion Online using Patient Portal and [employer] Apps Indication:Nonsmoker Start:10-May-2022 Instruction Type:Patient Education Patient Instructions Indication:Nonsmoker Start:14-Mar-2022 Instruction Type:Provider Instructions for Treatment How to Access Health Informa tion Online using Patient Portal and [employer] Indication:Nonsmoker Start:14-Mar-2022 Instruction Type:Patient Education Patient Instructions Indication:Nonsmoker Start:07-Mar-2022 Instruction Type:Provider Instructions for Treatment How to Access Health Informa tion Online using Patient Portal and [employer] Indication:Nonsmoker Start:07-Mar-2022 Instruction Type:Patient Education Patient Instructions Indication:Morbid obesity Start:18-Feb-2022 Instruction Type:Provider Instructions for Treatment How to Access Health Informa tion Online using Patient Portal and [employer] Indication:Morbid obesity Start:18-Feb-2022 Instruction Type:Patient Education Patient Instructions Indication:Morbid obesity Start:31-Dec-2021 Instruction Type:Provider Instructions for Treatment How to Access Health Informa tion Online using Patient Portal and [employer] Indication:Morbid obesity Start:31-Dec-2021 Instruction Type:Patient Education Patient Instructions Indication:BMI 40.0-44.9, adult Start:17-Oct-2021 Instruction Type:Provider Instructions for Treatment How to Access Health Informa tion Online using Patient Portal and [employer] Indication:BMI 40.0-44.9, adult Start:17-Oct-2021 Instruction Type:Patient Education Patient Instructions Indication:BMI 40.0-44.9, adult Start:10-Oct-2021 Instruction Type:Provider Instructions for Treatment How to Access Health Informa tion Online using Patient Portal and [employer] Indication:BMI 40.0-44.9, adult Start:10-Oct-2021 Instruction Type:Patient Education Patient Instructions Indication:Cellulitis Start:03-Oct-2021 Instruction Type:Provider Instructions for Treatment Patient Instructions Indication:BMI 40.0-44.9, adult Start:26-Sep-2021 Instruction Type:Provider Instructions for Treatment How to Access Health Informa tion Online using Patient Portal and [employer] Indication:BMI 40.0-44.9, adult Start:26-Sep-2021 Instruction Type:Patient Education Patient Instructions Indication:Nonsmoker Start:10-Aug-2021 Instruction Type:Provider Instructions for Treatment How to Access Health Informa tion Online using Patient Portal and [employer] Indication:Hypertension Start:10-Aug-2021 Instruction Type:Patient Education Patient Instructions Indication:BMI 40.0-44.9, adult Start:09-Aug-2021 Instruction Type:Provider Instructions for Treatment How to Access Health Informa tion Online using Patient Portal and [employer] Indication:BMI 40.0-44.9, adult Start:09-Aug-2021 Instruction Type:Patient Education Patient Instructions Indication:Nonsmoker Start:28-May-2021 Instruction Type:Provider Instructions for Treatment How to Access Health Informa tion Online using Patient Portal and [employer] Indication:Nonsmoker Start:28-May-2021 Instruction Type:Patient Education Patient Instructions Indication:BMI 40.0-44.9, adult Start:04-Apr-2021 Instruction Type:Provider Instructions for Treatment How to Access Health Informa tion Online using Patient Portal and [employer] Indication:BMI 40.0-44.9, adult Start:04-Apr-2021 Instruction Type:Patient Education Patient Instructions Indication:BMI 40.0-44.9, adult Start:20-Mar-2021 Instruction Type:Provider Instructions for Treatment How to Access Health Informa tion Online using Patient Portal and [employer] Indication:BMI 40.0-44.9, adult Start:20-Mar-2021 Instruction Type:Patient Education Patient Instructions Indication:Type 2 diabetes mellitus Start:13-Dec-2020 Instruction Type:Provider Instructions for Treatment How to Access Health Informa tion Online using Patient Portal and [employer] Indication:Type 2 diabetes mellitus Start:13-Dec-2020 Instruction Type:Patient Education Patient Instructions Indication:Type 2 diabetes mellitus Start:15-Sep-2020 Instruction Type:Provider Instructions for Treatment How to Access Health Informa tion Online using Patient Portal and [employer] Indication:Type 2 diabetes mellitus Start:15-Sep-2020 Instruction Type:Patient Education [facility]; [facility] Work Phone: Instructions* Name Dates Details Patient Instructions Indication:Nonsmoker Start:10-Jun-2022 Instruction Type:Provider Instructions for Treatment How to Access Health Informa tion Online using Patient Portal and [employer] Indication:Nonsmoker Start:10-Jun-2022 Instruction Type:Patient Education Patient Instructions Indication:Nonsmoker Start:10-May-2022 Instruction Type:Provider Instructions for Treatment How to Access Health Informa tion Online using Patient Portal and [employer] Indication:Nonsmoker Start:10-May-2022 Instruction Type:Patient Education Patient Instructions Indication:Nonsmoker Start:14-Mar-2022 Instruction Type:Provider Instructions for Treatment How to Access Health Informa tion Online using Patient Portal and [employer] Indication:Nonsmoker Start:14-Mar-2022 Instruction Type:Patient Education Patient Instructions Indication:Nonsmoker Start:07-Mar-2022 Instruction Type:Provider Instructions for Treatment How to Access Health Informa tion Online using Patient Portal and [employer] Indication:Nonsmoker Start:07-Mar-2022 Instruction Type:Patient Education Patient Instructions Indication:Morbid obesity Start:18-Feb-2022 Instruction Type:Provider Instructions for Treatment How to Access Health Informa tion Online using Patient Portal and [employer] Indication:Morbid obesity Start:18-Feb-2022 Instruction Type:Patient Education Patient Instructions Indication:Morbid obesity Start:31-Dec-2021 Instruction Type:Provider Instructions for Treatment How to Access Health Informa tion Online using Patient Portal and [employer] Indication:Morbid obesity Start:31-Dec-2021 Instruction Type:Patient Education Patient Instructions Indication:BMI 40.0-44.9, adult Start:17-Oct-2021 Instruction Type:Provider Instructions for Treatment How to Access Health Informa tion Online using Patient Portal and [employer] Indication:BMI 40.0-44.9, adult Start:17-Oct-2021 Instruction Type:Patient Education Patient Instructions Indication:BMI 40.0-44.9, adult Start:10-Oct-2021 Instruction Type:Provider Instructions for Treatment How to Access Health Informa tion Online using Patient Portal and [employer] Indication:BMI 40.0-44.9, adult Start:10-Oct-2021 Instruction Type:Patient Education Patient Instructions Indication:Cellulitis Start:03-Oct-2021 Instruction Type:Provider Instructions for Treatment Patient Instructions Indication:BMI 40.0-44.9, adult Start:26-Sep-2021 Instruction Type:Provider Instructions for Treatment How to Access Health Informa tion Online using Patient Portal and [employer] Indication:BMI 40.0-44.9, adult Start:26-Sep-2021 Instruction Type:Patient Education Patient Instructions Indication:Nonsmoker Start:10-Aug-2021 Instruction Type:Provider Instructions for Treatment How to Access Health Informa tion Online using Patient Portal and [employer] Indication:Hypertension Start:10-Aug-2021 Instruction Type:Patient Education Patient Instructions Indication:BMI 40.0-44.9, adult Start:09-Aug-2021 Instruction Type:Provider Instructions for Treatment How to Access Health Informa tion Online using Patient Portal and [employer] Indication:BMI 40.0-44.9, adult Start:09-Aug-2021 Instruction Type:Patient Education Patient Instructions Indication:Nonsmoker Start:28-May-2021 Instruction Type:Provider Instructions for Treatment How to Access Health Informa tion Online using Patient Portal and [employer] Indication:Nonsmoker Start:28-May-2021 Instruction Type:Patient Education Patient Instructions Indication:BMI 40.0-44.9, adult Start:04-Apr-2021 Instruction Type:Provider Instructions for Treatment How to Access Health Informa tion Online using Patient Portal and [employer] Indication:BMI 40.0-44.9, adult Start:04-Apr-2021 Instruction Type:Patient Education Patient Instructions Indication:BMI 40.0-44.9, adult Start:20-Mar-2021 Instruction Type:Provider Instructions for Treatment How to Access Health Informa tion Online using Patient Portal and [employer] Indication:BMI 40.0-44.9, adult Start:20-Mar-2021 Instruction Type:Patient Education Patient Instructions Indication:Type 2 diabetes mellitus Start:13-Dec-2020 Instruction Type:Provider Instructions for Treatment How to Access Health Informa tion Online using Patient Portal and [employer] Indication:Type 2 diabetes mellitus Start:13-Dec-2020 Instruction Type:Patient Education Patient Instructions Indication:Type 2 diabetes mellitus Start:15-Sep-2020 Instruction Type:Provider Instructions for Treatment How to Access Health Informa tion Online using Patient Portal and [employer] Indication:Type 2 diabetes mellitus Start:15-Sep-2020 Instruction Type:Patient Education [facility]; [facility] Work Phone: Instructions* Name Dates Details Patient Instructions Indication:Nonsmoker Start:10-Jun-2022 Instruction Type:Provider Instructions for Treatment How to Access Health Informa tion Online using Patient Portal and [employer] Indication:Nonsmoker Start:10-Jun-2022 Instruction Type:Patient Education Patient Instructions Indication:Nonsmoker Start:10-May-2022 Instruction Type:Provider Instructions for Treatment How to Access Health Informa tion Online using Patient Portal and [employer] Indication:Nonsmoker Start:10-May-2022 Instruction Type:Patient Education Patient Instructions Indication:Nonsmoker Start:14-Mar-2022 Instruction Type:Provider Instructions for Treatment How to Access Health Informa tion Online using Patient Portal and [employer] Indication:Nonsmoker Start:14-Mar-2022 Instruction Type:Patient Education Patient Instructions Indication:Nonsmoker Start:07-Mar-2022 Instruction Type:Provider Instructions for Treatment How to Access Health Informa tion Online using Patient Portal and [employer] Indication:Nonsmoker Start:07-Mar-2022 Instruction Type:Patient Education Patient Instructions Indication:Morbid obesity Start:18-Feb-2022 Instruction Type:Provider Instructions for Treatment How to Access Health Informa tion Online using Patient Portal and [employer] Indication:Morbid obesity Start:18-Feb-2022 Instruction Type:Patient Education Patient Instructions Indication:Morbid obesity Start:31-Dec-2021 Instruction Type:Provider Instructions for Treatment How to Access Health Informa tion Online using Patient Portal and [employer] Indication:Morbid obesity Start:31-Dec-2021 Instruction Type:Patient Education Patient Instructions Indication:BMI 40.0-44.9, adult Start:17-Oct-2021 Instruction Type:Provider Instructions for Treatment How to Access Health Informa tion Online using Patient Portal and [employer] Indication:BMI 40.0-44.9, adult Start:17-Oct-2021 Instruction Type:Patient Education Patient Instructions Indication:BMI 40.0-44.9, adult Start:10-Oct-2021 Instruction Type:Provider Instructions for Treatment How to Access Health Informa tion Online using Patient Portal and [employer] Indication:BMI 40.0-44.9, adult Start:10-Oct-2021 Instruction Type:Patient Education Patient Instructions Indication:Cellulitis Start:03-Oct-2021 Instruction Type:Provider Instructions for Treatment Patient Instructions Indication:BMI 40.0-44.9, adult Start:26-Sep-2021 Instruction Type:Provider Instructions for Treatment How to Access Health Informa tion Online using Patient Portal and [employer] Indication:BMI 40.0-44.9, adult Start:26-Sep-2021 Instruction Type:Patient Education Patient Instructions Indication:Nonsmoker Start:10-Aug-2021 Instruction Type:Provider Instructions for Treatment How to Access Health Informa tion Online using Patient Portal and [employer] Indication:Hypertension Start:10-Aug-2021 Instruction Type:Patient Education Patient Instructions Indication:BMI 40.0-44.9, adult Start:09-Aug-2021 Instruction Type:Provider Instructions for Treatment How to Access Health Informa tion Online using Patient Portal and [employer] Indication:BMI 40.0-44.9, adult Start:09-Aug-2021 Instruction Type:Patient Education Patient Instructions Indication:Nonsmoker Start:28-May-2021 Instruction Type:Provider Instructions for Treatment How to Access Health Informa tion Online using Patient Portal and [employer] Indication:Nonsmoker Start:28-May-2021 Instruction Type:Patient Education Patient Instructions Indication:BMI 40.0-44.9, adult Start:04-Apr-2021 Instruction Type:Provider Instructions for Treatment How to Access Health Informa tion Online using Patient Portal and [employer] Indication:BMI 40.0-44.9, adult Start:04-Apr-2021 Instruction Type:Patient Education Patient Instructions Indication:BMI 40.0-44.9, adult Start:20-Mar-2021 Instruction Type:Provider Instructions for Treatment How to Access Health Informa tion Online using Patient Portal and [employer] Indication:BMI 40.0-44.9, adult Start:20-Mar-2021 Instruction Type:Patient Education Patient Instructions Indication:Type 2 diabetes mellitus Start:13-Dec-2020 Instruction Type:Provider Instructions for Treatment How to Access Health Informa tion Online using Patient Portal and [employer] Indication:Type 2 diabetes mellitus Start:13-Dec-2020 Instruction Type:Patient Education Patient Instructions Indication:Type 2 diabetes mellitus Start:15-Sep-2020 Instruction Type:Provider Instructions for Treatment How to Access Health Informa tion Online using Patient Portal and [employer] Indication:Type 2 diabetes mellitus Start:15-Sep-2020 Instruction Type:Patient Education [facility]; [facility] Work Phone: Instructions* Name Dates Details Patient Instructions Indication:Nonsmoker Start:10-Jun-2022 Instruction Type:Provider Instructions for Treatment How to Access Health Informa tion Online using Patient Portal and [employer] Indication:Nonsmoker Start:10-Jun-2022 Instruction Type:Patient Education Patient Instructions Indication:Nonsmoker Start:10-May-2022 Instruction Type:Provider Instructions for Treatment How to Access Health Informa tion Online using Patient Portal and [employer] Indication:Nonsmoker Start:10-May-2022 Instruction Type:Patient Education Patient Instructions Indication:Nonsmoker Start:14-Mar-2022 Instruction Type:Provider Instructions for Treatment How to Access Health Informa tion Online using Patient Portal and [employer] Indication:Nonsmoker Start:14-Mar-2022 Instruction Type:Patient Education Patient Instructions Indication:Nonsmoker Start:07-Mar-2022 Instruction Type:Provider Instructions for Treatment How to Access Health Informa tion Online using Patient Portal and [employer] Indication:Nonsmoker Start:07-Mar-2022 Instruction Type:Patient Education Patient Instructions Indication:Morbid obesity Start:18-Feb-2022 Instruction Type:Provider Instructions for Treatment How to Access Health Informa tion Online using Patient Portal and [employer] Indication:Morbid obesity Start:18-Feb-2022 Instruction Type:Patient Education Patient Instructions Indication:Morbid obesity Start:31-Dec-2021 Instruction Type:Provider Instructions for Treatment How to Access Health Informa tion Online using Patient Portal and [employer] Indication:Morbid obesity Start:31-Dec-2021 Instruction Type:Patient Education Patient Instructions Indication:BMI 40.0-44.9, adult Start:17-Oct-2021 Instruction Type:Provider Instructions for Treatment How to Access Health Informa tion Online using Patient Portal and [employer] Indication:BMI 40.0-44.9, adult Start:17-Oct-2021 Instruction Type:Patient Education Patient Instructions Indication:BMI 40.0-44.9, adult Start:10-Oct-2021 Instruction Type:Provider Instructions for Treatment How to Access Health Informa tion Online using Patient Portal and [employer] Indication:BMI 40.0-44.9, adult Start:10-Oct-2021 Instruction Type:Patient Education Patient Instructions Indication:Cellulitis Start:03-Oct-2021 Instruction Type:Provider Instructions for Treatment Patient Instructions Indication:BMI 40.0-44.9, adult Start:26-Sep-2021 Instruction Type:Provider Instructions for Treatment How to Access Health Informa tion Online using Patient Portal and [employer] Indication:BMI 40.0-44.9, adult Start:26-Sep-2021 Instruction Type:Patient Education Patient Instructions Indication:Nonsmoker Start:10-Aug-2021 Instruction Type:Provider Instructions for Treatment How to Access Health Informa tion Online using Patient Portal and [employer] Indication:Hypertension Start:10-Aug-2021 Instruction Type:Patient Education Patient Instructions Indication:BMI 40.0-44.9, adult Start:09-Aug-2021 Instruction Type:Provider Instructions for Treatment How to Access Health Informa tion Online using Patient Portal and [employer] Indication:BMI 40.0-44.9, adult Start:09-Aug-2021 Instruction Type:Patient Education Patient Instructions Indication:Nonsmoker Start:28-May-2021 Instruction Type:Provider Instructions for Treatment How to Access Health Informa tion Online using Patient Portal and [employer] Indication:Nonsmoker Start:28-May-2021 Instruction Type:Patient Education Patient Instructions Indication:BMI 40.0-44.9, adult Start:04-Apr-2021 Instruction Type:Provider Instructions for Treatment How to Access Health Informa tion Online using Patient Portal and [employer] Indication:BMI 40.0-44.9, adult Start:04-Apr-2021 Instruction Type:Patient Education Patient Instructions Indication:BMI 40.0-44.9, adult Start:20-Mar-2021 Instruction Type:Provider Instructions for Treatment How to Access Health Informa tion Online using Patient Portal and [employer] Indication:BMI 40.0-44.9, adult Start:20-Mar-2021 Instruction Type:Patient Education Patient Instructions Indication:Type 2 diabetes mellitus Start:13-Dec-2020 Instruction Type:Provider Instructions for Treatment How to Access Health Informa tion Online using Patient Portal and [employer] Indication:Type 2 diabetes mellitus Start:13-Dec-2020 Instruction Type:Patient Education Patient Instructions Indication:Type 2 diabetes mellitus Start:15-Sep-2020 Instruction Type:Provider Instructions for Treatment How to Access Health Informa tion Online using Patient Portal and [employer] Indication:Type 2 diabetes mellitus Start:15-Sep-2020 Instruction Type:Patient Education [facility]; [facility] Work Phone: Instructions* Name Dates Details Patient Instructions Indication:Nonsmoker Start:10-Jun-2022 Instruction Type:Provider Instructions for Treatment How to Access Health Informa tion Online using Patient Portal and [employer] Indication:Nonsmoker Start:10-Jun-2022 Instruction Type:Patient Education Patient Instructions Indication:Nonsmoker Start:10-May-2022 Instruction Type:Provider Instructions for Treatment How to Access Health Informa tion Online using Patient Portal and [employer] Indication:Nonsmoker Start:10-May-2022 Instruction Type:Patient Education Patient Instructions Indication:Nonsmoker Start:14-Mar-2022 Instruction Type:Provider Instructions for Treatment How to Access Health Informa tion Online using Patient Portal and [employer] Indication:Nonsmoker Start:14-Mar-2022 Instruction Type:Patient Education Patient Instructions Indication:Nonsmoker Start:07-Mar-2022 Instruction Type:Provider Instructions for Treatment How to Access Health Informa tion Online using Patient Portal and [employer] Indication:Nonsmoker Start:07-Mar-2022 Instruction Type:Patient Education Patient Instructions Indication:Morbid obesity Start:18-Feb-2022 Instruction Type:Provider Instructions for Treatment How to Access Health Informa tion Online using Patient Portal and [employer] Indication:Morbid obesity Start:18-Feb-2022 Instruction Type:Patient Education Patient Instructions Indication:Morbid obesity Start:31-Dec-2021 Instruction Type:Provider Instructions for Treatment How to Access Health Informa tion Online using Patient Portal and [employer] Indication:Morbid obesity Start:31-Dec-2021 Instruction Type:Patient Education Patient Instructions Indication:BMI 40.0-44.9, adult Start:17-Oct-2021 Instruction Type:Provider Instructions for Treatment How to Access Health Informa tion Online using Patient Portal and [employer] Indication:BMI 40.0-44.9, adult Start:17-Oct-2021 Instruction Type:Patient Education Patient Instructions Indication:BMI 40.0-44.9, adult Start:10-Oct-2021 Instruction Type:Provider Instructions for Treatment How to Access Health Informa tion Online using Patient Portal and [employer]rd [employer] Apps Indication:BMI 40.0-44.9, adult Start:10-Oct-2021 Instruction Type:Patient Education Patient Instructions Indication:Cellulitis Start:03-Oct-2021 Instruction Type:Provider Instructions for Treatment Patient Instructions Indication:BMI 40.0-44.9, adult Start:26-Sep-2021 Instruction Type:Provider Instructions for Treatment How to Access Health Informa tion Online using Patient Portal and [employer]rd [employer] Apps Indication:BMI 40.0-44.9, adult Start:26-Sep-2021 Instruction Type:Patient Education Patient Instructions Indication:Nonsmoker Start:10-Aug-2021 Instruction Type:Provider Instructions for Treatment How to Access Health Informa tion Online using Patient Portal and [employer]rd [employer] Apps Indication:Hypertension Start:10-Aug-2021 Instruction Type:Patient Education Patient Instructions Indication:BMI 40.0-44.9, adult Start:09-Aug-2021 Instruction Type:Provider Instructions for Treatment How to Access Health Informa tion Online using Patient Portal and [employer]rd [employer] Apps Indication:BMI 40.0-44.9, adult Start:09-Aug-2021 Instruction Type:Patient Education Patient Instructions Indication:Nonsmoker Start:28-May-2021 Instruction Type:Provider Instructions for Treatment How to Access Health Informa tion Online using Patient Portal and [employer]rd [employer] Apps Indication:Nonsmoker Start:28-May-2021 Instruction Type:Patient Education Patient Instructions Indication:BMI 40.0-44.9, adult Start:04-Apr-2021 Instruction Type:Provider Instructions for Treatment How to Access Health Informa tion Online using Patient Portal and [employer]rd [employer] Apps Indication:BMI 40.0-44.9, adult Start:04-Apr-2021 Instruction Type:Patient Education Patient Instructions Indication:BMI 40.0-44.9, adult Start:20-Mar-2021 Instruction Type:Provider Instructions for Treatment How to Access Health Informa tion Online using Patient Portal and [employer]rd [employer] Apps Indication:BMI 40.0-44.9, adult Start:20-Mar-2021 Instruction Type:Patient Education Patient Instructions Indication:Type 2 diabetes mellitus Start:13-Dec-2020 Instruction Type:Provider Instructions for Treatment How to Access Health Informa tion Online using Patient Portal and [employer]rd [employer] Apps Indication:Type 2 diabetes mellitus Start:13-Dec-2020 Instruction Type:Patient Education Patient Instructions Indication:Type 2 diabetes mellitus Start:15-Sep-2020 Instruction Type:Provider Instructions for Treatment How to Access Health Informa tion Online using Patient Portal and [employer]rd [employer] Apps Indication:Type 2 diabetes mellitus Start:15-Sep-2020 Instruction Type:Patient Education [facility]; [facility] Work Phone: Instructions* Name Dates Details Patient Instructions Indication:Nonsmoker Start:10-Jun-2022 Instruction Type:Provider Instructions for Treatment How to Access Health Informa tion Online using Patient Portal and [employer] Apps Indication:Nonsmoker Start:10-Jun-2022 Instruction Type:Patient Education Patient Instructions Indication:Nonsmoker Start:10-May-2022 Instruction Type:Provider Instructions for Treatment How to Access Health Informa tion Online using Patient Portal and [employer]rd [employer] Apps Indication:Nonsmoker Start:10-May-2022 Instruction Type:Patient Education Patient Instructions Indication:Nonsmoker Start:14-Mar-2022 Instruction Type:Provider Instructions for Treatment How to Access Health Informa tion Online using Patient Portal and [employer]rd [employer] Apps Indication:Nonsmoker Start:14-Mar-2022 Instruction Type:Patient Education Patient Instructions Indication:Nonsmoker Start:07-Mar-2022 Instruction Type:Provider Instructions for Treatment How to Access Health Informa tion Online using Patient Portal and [employer] Apps Indication:Nonsmoker Start:07-Mar-2022 Instruction Type:Patient Education Patient Instructions Indication:Morbid obesity Start:18-Feb-2022 Instruction Type:Provider Instructions for Treatment How to Access Health Informa tion Online using Patient Portal and [employer]rd [employer] Apps Indication:Morbid obesity Start:18-Feb-2022 Instruction Type:Patient Education Patient Instructions Indication:Morbid obesity Start:31-Dec-2021 Instruction Type:Provider Instructions for Treatment How to Access Health Informa tion Online using Patient Portal and [employer] Apps Indication:Morbid obesity Start:31-Dec-2021 Instruction Type:Patient Education Patient Instructions Indication:BMI 40.0-44.9, adult Start:17-Oct-2021 Instruction Type:Provider Instructions for Treatment How to Access Health Informa tion Online using Patient Portal and [employer] Apps Indication:BMI 40.0-44.9, adult Start:17-Oct-2021 Instruction Type:Patient Education Patient Instructions Indication:BMI 40.0-44.9, adult Start:10-Oct-2021 Instruction Type:Provider Instructions for Treatment How to Access Health Informa tion Online using Patient Portal and [employer] Apps Indication:BMI 40.0-44.9, adult Start:10-Oct-2021 Instruction Type:Patient Education Patient Instructions Indication:Cellulitis Start:03-Oct-2021 Instruction Type:Provider Instructions for Treatment Patient Instructions Indication:BMI 40.0-44.9, adult Start:26-Sep-2021 Instruction Type:Provider Instructions for Treatment How to Access Health Informa tion Online using Patient Portal and [employer]rd [employer] Apps Indication:BMI 40.0-44.9, adult Start:26-Sep-2021 Instruction Type:Patient Education Patient Instructions Indication:Nonsmoker Start:10-Aug-2021 Instruction Type:Provider Instructions for Treatment How to Access Health Informa tion Online using Patient Portal and [employer] Apps Indication:Hypertension Start:10-Aug-2021 Instruction Type:Patient Education Patient Instructions Indication:BMI 40.0-44.9, adult Start:09-Aug-2021 Instruction Type:Provider Instructions for Treatment How to Access Health Informa tion Online using Patient Portal and [employer] Apps Indication:BMI 40.0-44.9, adult Start:09-Aug-2021 Instruction Type:Patient Education Patient Instructions Indication:Nonsmoker Start:28-May-2021 Instruction Type:Provider Instructions for Treatment How to Access Health Informa tion Online using Patient Portal and [employer] Apps Indication:Nonsmoker Start:28-May-2021 Instruction Type:Patient Education Patient Instructions Indication:BMI 40.0-44.9, adult Start:04-Apr-2021 Instruction Type:Provider Instructions for Treatment How to Access Health Informa tion Online using Patient Portal and [employer] Apps Indication:BMI 40.0-44.9, adult Start:04-Apr-2021 Instruction Type:Patient Education Patient Instructions Indication:BMI 40.0-44.9, adult Start:20-Mar-2021 Instruction Type:Provider Instructions for Treatment How to Access Health Informa tion Online using Patient Portal and [employer] Apps Indication:BMI 40.0-44.9, adult Start:20-Mar-2021 Instruction Type:Patient Education Patient Instructions Indication:Type 2 diabetes mellitus Start:13-Dec-2020 Instruction Type:Provider Instructions for Treatment How to Access Health Informa tion Online using Patient Portal and [employer] Apps Indication:Type 2 diabetes mellitus Start:13-Dec-2020 Instruction Type:Patient Education Patient Instructions Indication:Type 2 diabetes mellitus Start:15-Sep-2020 Instruction Type:Provider Instructions for Treatment How to Access Health Informa tion Online using Patient Portal and [employer] Apps Indication:Type 2 diabetes mellitus Start:15-Sep-2020 Instruction Type:Patient Education [facility]; [facility] Work Phone: Instructions* Name Dates Details Patient Instructions Indication:Nonsmoker Start:10-Jun-2022 Instruction Type:Provider Instructions for Treatment How to Access Health Informa tion Online using Patient Portal and [employer] Apps Indication:Nonsmoker Start:10-Jun-2022 Instruction Type:Patient Education Patient Instructions Indication:Nonsmoker Start:10-May-2022 Instruction Type:Provider Instructions for Treatment How to Access Health Informa tion Online using Patient Portal and [employer] Apps Indication:Nonsmoker Start:10-May-2022 Instruction Type:Patient Education Patient Instructions Indication:Nonsmoker Start:14-Mar-2022 Instruction Type:Provider Instructions for Treatment How to Access Health Informa tion Online using Patient Portal and [employer] Apps Indication:Nonsmoker Start:14-Mar-2022 Instruction Type:Patient Education Patient Instructions Indication:Nonsmoker Start:07-Mar-2022 Instruction Type:Provider Instructions for Treatment How to Access Health Informa tion Online using Patient Portal and [employer] Apps Indication:Nonsmoker Start:07-Mar-2022 Instruction Type:Patient Education Patient Instructions Indication:Morbid obesity Start:18-Feb-2022 Instruction Type:Provider Instructions for Treatment How to Access Health Informa tion Online using Patient Portal and [employer] Apps Indication:Morbid obesity Start:18-Feb-2022 Instruction Type:Patient Education Patient Instructions Indication:Morbid obesity Start:31-Dec-2021 Instruction Type:Provider Instructions for Treatment How to Access Health Informa tion Online using Patient Portal and [employer] Apps Indication:Morbid obesity Start:31-Dec-2021 Instruction Type:Patient Education Patient Instructions Indication:BMI 40.0-44.9, adult Start:17-Oct-2021 Instruction Type:Provider Instructions for Treatment How to Access Health Informa tion Online using Patient Portal and [employer] Apps Indication:BMI 40.0-44.9, adult Start:17-Oct-2021 Instruction Type:Patient Education Patient Instructions Indication:BMI 40.0-44.9, adult Start:10-Oct-2021 Instruction Type:Provider Instructions for Treatment How to Access Health Informa tion Online using Patient Portal and [employer] Apps Indication:BMI 40.0-44.9, adult Start:10-Oct-2021 Instruction Type:Patient Education Patient Instructions Indication:Cellulitis Start:03-Oct-2021 Instruction Type:Provider Instructions for Treatment Patient Instructions Indication:BMI 40.0-44.9, adult Start:26-Sep-2021 Instruction Type:Provider Instructions for Treatment How to Access Health Informa tion Online using Patient Portal and [employer] Apps Indication:BMI 40.0-44.9, adult Start:26-Sep-2021 Instruction Type:Patient Education Patient Instructions Indication:Nonsmoker Start:10-Aug-2021 Instruction Type:Provider Instructions for Treatment How to Access Health Informa tion Online using Patient Portal and [employer] Apps Indication:Hypertension Start:10-Aug-2021 Instruction Type:Patient Education Patient Instructions Indication:BMI 40.0-44.9, adult Start:09-Aug-2021 Instruction Type:Provider Instructions for Treatment How to Access Health Informa tion Online using Patient Portal and [employer] Apps Indication:BMI 40.0-44.9, adult Start:09-Aug-2021 Instruction Type:Patient Education Patient Instructions Indication:Nonsmoker Start:28-May-2021 Instruction Type:Provider Instructions for Treatment How to Access Health Informa tion Online using Patient Portal and [employer] Apps Indication:Nonsmoker Start:28-May-2021 Instruction Type:Patient Education Patient Instructions Indication:BMI 40.0-44.9, adult Start:04-Apr-2021 Instruction Type:Provider Instructions for Treatment How to Access Health Informa tion Online using Patient Portal and [employer] Apps Indication:BMI 40.0-44.9, adult Start:04-Apr-2021 Instruction Type:Patient Education Patient Instructions Indication:BMI 40.0-44.9, adult Start:20-Mar-2021 Instruction Type:Provider Instructions for Treatment How to Access Health Informa tion Online using Patient Portal and [employer] Apps Indication:BMI 40.0-44.9, adult Start:20-Mar-2021 Instruction Type:Patient Education Patient Instructions Indication:Type 2 diabetes mellitus Start:13-Dec-2020 Instruction Type:Provider Instructions for Treatment How to Access Health Informa tion Online using Patient Portal and [employer] Apps Indication:Type 2 diabetes mellitus Start:13-Dec-2020 Instruction Type:Patient Education Patient Instructions Indication:Type 2 diabetes mellitus Start:15-Sep-2020 Instruction Type:Provider Instructions for Treatment How to Access Health Informa tion Online using Patient Portal and [employer] Apps Indication:Type 2 diabetes mellitus Start:15-Sep-2020 Instruction Type:Patient Education [facility]; [facility] Work Phone: Instructions* Name Dates Details Patient Instructions Indication:Nonsmoker Start:10-Jun-2022 Instruction Type:Provider Instructions for Treatment How to Access Health Informa tion Online using Patient Portal and [employer] Apps Indication:Nonsmoker Start:10-Jun-2022 Instruction Type:Patient Education Patient Instructions Indication:Nonsmoker Start:10-May-2022 Instruction Type:Provider Instructions for Treatment How to Access Health Informa tion Online using Patient Portal and [employer] Apps Indication:Nonsmoker Start:10-May-2022 Instruction Type:Patient Education Patient Instructions Indication:Nonsmoker Start:14-Mar-2022 Instruction Type:Provider Instructions for Treatment How to Access Health Informa tion Online using Patient Portal and [employer] Apps Indication:Nonsmoker Start:14-Mar-2022 Instruction Type:Patient Education Patient Instructions Indication:Nonsmoker Start:07-Mar-2022 Instruction Type:Provider Instructions for Treatment How to Access Health Informa tion Online using Patient Portal and [employer] Apps Indication:Nonsmoker Start:07-Mar-2022 Instruction Type:Patient Education Patient Instructions Indication:Morbid obesity Start:18-Feb-2022 Instruction Type:Provider Instructions for Treatment How to Access Health Informa tion Online using Patient Portal and [employer] Apps Indication:Morbid obesity Start:18-Feb-2022 Instruction Type:Patient Education Patient Instructions Indication:Morbid obesity Start:31-Dec-2021 Instruction Type:Provider Instructions for Treatment How to Access Health Informa tion Online using Patient Portal and [employer] Apps Indication:Morbid obesity Start:31-Dec-2021 Instruction Type:Patient Education Patient Instructions Indication:BMI 40.0-44.9, adult Start:17-Oct-2021 Instruction Type:Provider Instructions for Treatment How to Access Health Informa tion Online using Patient Portal and [employer] Apps Indication:BMI 40.0-44.9, adult Start:17-Oct-2021 Instruction Type:Patient Education Patient Instructions Indication:BMI 40.0-44.9, adult Start:10-Oct-2021 Instruction Type:Provider Instructions for Treatment How to Access Health Informa tion Online using Patient Portal and [employer]rd [employer] Apps Indication:BMI 40.0-44.9, adult Start:10-Oct-2021 Instruction Type:Patient Education Patient Instructions Indication:Cellulitis Start:03-Oct-2021 Instruction Type:Provider Instructions for Treatment Patient Instructions Indication:BMI 40.0-44.9, adult Start:26-Sep-2021 Instruction Type:Provider Instructions for Treatment How to Access Health Informa tion Online using Patient Portal and [employer] Apps Indication:BMI 40.0-44.9, adult Start:26-Sep-2021 Instruction Type:Patient Education Patient Instructions Indication:Nonsmoker Start:10-Aug-2021 Instruction Type:Provider Instructions for Treatment How to Access Health Informa tion Online using Patient Portal and [employer]rd [employer] Apps Indication:Hypertension Start:10-Aug-2021 Instruction Type:Patient Education Patient Instructions Indication:BMI 40.0-44.9, adult Start:09-Aug-2021 Instruction Type:Provider Instructions for Treatment How to Access Health Informa tion Online using Patient Portal and [employer]rd [employer] Apps Indication:BMI 40.0-44.9, adult Start:09-Aug-2021 Instruction Type:Patient Education Patient Instructions Indication:Nonsmoker Start:28-May-2021 Instruction Type:Provider Instructions for Treatment How to Access Health Informa tion Online using Patient Portal and [employer] Apps Indication:Nonsmoker Start:28-May-2021 Instruction Type:Patient Education Patient Instructions Indication:BMI 40.0-44.9, adult Start:04-Apr-2021 Instruction Type:Provider Instructions for Treatment How to Access Health Informa tion Online using Patient Portal and [employer] Apps Indication:BMI 40.0-44.9, adult Start:04-Apr-2021 Instruction Type:Patient Education Patient Instructions Indication:BMI 40.0-44.9, adult Start:20-Mar-2021 Instruction Type:Provider Instructions for Treatment How to Access Health Informa tion Online using Patient Portal and [employer] Apps Indication:BMI 40.0-44.9, adult Start:20-Mar-2021 Instruction Type:Patient Education Patient Instructions Indication:Type 2 diabetes mellitus Start:13-Dec-2020 Instruction Type:Provider Instructions for Treatment How to Access Health Informa tion Online using Patient Portal and [employer]rd [employer] Apps Indication:Type 2 diabetes mellitus Start:13-Dec-2020 Instruction Type:Patient Education Patient Instructions Indication:Type 2 diabetes mellitus Start:15-Sep-2020 Instruction Type:Provider Instructions for Treatment How to Access Health Informa tion Online using Patient Portal and [employer] Apps Indication:Type 2 diabetes mellitus Start:15-Sep-2020 Instruction Type:Patient Education [facility]; [facility] Work Phone: Instructions* Name Dates Details Patient Instructions Indication:BMI 45.0-49.9, adult Start:10-Jul-2022 Instruction Type:Provider Instructions for Treatment How to Access Health Informa tion Online using Patient Portal and [employer]rd [employer] Apps Indication:BMI 45.0-49.9, adult Start:10-Jul-2022 Instruction Type:Patient Education Patient Instructions Indication:Nonsmoker Start:10-Jun-2022 Instruction Type:Provider Instructions for Treatment How to Access Health Informa tion Online using Patient Portal and [employer] Apps Indication:Nonsmoker Start:10-Jun-2022 Instruction Type:Patient Education Patient Instructions Indication:Nonsmoker Start:10-May-2022 Instruction Type:Provider Instructions for Treatment How to Access Health Informa tion Online using Patient Portal and [employer]rd [employer] Apps Indication:Nonsmoker Start:10-May-2022 Instruction Type:Patient Education Patient Instructions Indication:Nonsmoker Start:14-Mar-2022 Instruction Type:Provider Instructions for Treatment How to Access Health Informa tion Online using Patient Portal and [employer]rd [employer] Apps Indication:Nonsmoker Start:14-Mar-2022 Instruction Type:Patient Education Patient Instructions Indication:Nonsmoker Start:07-Mar-2022 Instruction Type:Provider Instructions for Treatment How to Access Health Informa tion Online using Patient Portal and [employer]rd [employer] Apps Indication:Nonsmoker Start:07-Mar-2022 Instruction Type:Patient Education Patient Instructions Indication:Morbid obesity Start:18-Feb-2022 Instruction Type:Provider Instructions for Treatment How to Access Health Informa tion Online using Patient Portal and [employer]rd [employer] Apps Indication:Morbid obesity Start:18-Feb-2022 Instruction Type:Patient Education Patient Instructions Indication:Morbid obesity Start:31-Dec-2021 Instruction Type:Provider Instructions for Treatment How to Access Health Informa tion Online using Patient Portal and [employer]rd [employer] Apps Indication:Morbid obesity Start:31-Dec-2021 Instruction Type:Patient Education Patient Instructions Indication:BMI 40.0-44.9, adult Start:17-Oct-2021 Instruction Type:Provider Instructions for Treatment How to Access Health Informa tion Online using Patient Portal and [employer]rd [employer] Apps Indication:BMI 40.0-44.9, adult Start:17-Oct-2021 Instruction Type:Patient Education Patient Instructions Indication:BMI 40.0-44.9, adult Start:10-Oct-2021 Instruction Type:Provider Instructions for Treatment How to Access Health Informa tion Online using Patient Portal and [employer]rd [employer] Apps Indication:BMI 40.0-44.9, adult Start:10-Oct-2021 Instruction Type:Patient Education Patient Instructions Indication:Cellulitis Start:03-Oct-2021 Instruction Type:Provider Instructions for Treatment Patient Instructions Indication:BMI 40.0-44.9, adult Start:26-Sep-2021 Instruction Type:Provider Instructions for Treatment How to Access Health Informa tion Online using Patient Portal and [employer]rd [employer] Apps Indication:BMI 40.0-44.9, adult Start:26-Sep-2021 Instruction Type:Patient Education Patient Instructions Indication:Nonsmoker Start:10-Aug-2021 Instruction Type:Provider Instructions for Treatment How to Access Health Informa tion Online using Patient Portal and [employer] Apps Indication:Hypertension Start:10-Aug-2021 Instruction Type:Patient Education Patient Instructions Indication:BMI 40.0-44.9, adult Start:09-Aug-2021 Instruction Type:Provider Instructions for Treatment How to Access Health Informa tion Online using Patient Portal and [employer]rd [employer] Apps Indication:BMI 40.0-44.9, adult Start:09-Aug-2021 Instruction Type:Patient Education Patient Instructions Indication:Nonsmoker Start:28-May-2021 Instruction Type:Provider Instructions for Treatment How to Access Health Informa tion Online using Patient Portal and [employer]rd [employer] Apps Indication:Nonsmoker Start:28-May-2021 Instruction Type:Patient Education Patient Instructions Indication:BMI 40.0-44.9, adult Start:04-Apr-2021 Instruction Type:Provider Instructions for Treatment How to Access Health Informa tion Online using Patient Portal and [employer]rd [employer] Apps Indication:BMI 40.0-44.9, adult Start:04-Apr-2021 Instruction Type:Patient Education Patient Instructions Indication:BMI 40.0-44.9, adult Start:20-Mar-2021 Instruction Type:Provider Instructions for Treatment How to Access Health Informa tion Online using Patient Portal and [employer] Apps Indication:BMI 40.0-44.9, adult Start:20-Mar-2021 Instruction Type:Patient Education Patient Instructions Indication:Type 2 diabetes mellitus Start:13-Dec-2020 Instruction Type:Provider Instructions for Treatment How to Access Health Informa tion Online using Patient Portal and [employer] Apps Indication:Type 2 diabetes mellitus Start:13-Dec-2020 Instruction Type:Patient Education Patient Instructions Indication:Type 2 diabetes mellitus Start:15-Sep-2020 Instruction Type:Provider Instructions for Treatment How to Access Health Informa tion Online using Patient Portal and [employer] Apps Indication:Type 2 diabetes mellitus Start:15-Sep-2020 Instruction Type:Patient Education [facility]; [facility] Work Phone: Instructions* Name Dates Details Patient Instructions Indication:BMI 40.0-44.9, adult Start:25-Jul-2022 Instruction Type:Provider Instructions for Treatment How to Access Health Informa tion Online using Patient Portal and [employer] Apps Indication:BMI 40.0-44.9, adult Start:25-Jul-2022 Instruction Type:Patient Education Patient Instructions Indication:BMI 45.0-49.9, adult Start:10-Jul-2022 Instruction Type:Provider Instructions for Treatment How to Access Health Informa tion Online using Patient Portal and [employer]rd [employer] Apps Indication:BMI 45.0-49.9, adult Start:10-Jul-2022 Instruction Type:Patient Education Patient Instructions Indication:Nonsmoker Start:10-Jun-2022 Instruction Type:Provider Instructions for Treatment How to Access Health Informa tion Online using Patient Portal and [employer] Apps Indication:Nonsmoker Start:10-Jun-2022 Instruction Type:Patient Education Patient Instructions Indication:Nonsmoker Start:10-May-2022 Instruction Type:Provider Instructions for Treatment How to Access Health Informa tion Online using Patient Portal and [employer] Apps Indication:Nonsmoker Start:10-May-2022 Instruction Type:Patient Education Patient Instructions Indication:Nonsmoker Start:14-Mar-2022 Instruction Type:Provider Instructions for Treatment How to Access Health Informa tion Online using Patient Portal and [employer] Apps Indication:Nonsmoker Start:14-Mar-2022 Instruction Type:Patient Education Patient Instructions Indication:Nonsmoker Start:07-Mar-2022 Instruction Type:Provider Instructions for Treatment How to Access Health Informa tion Online using Patient Portal and [employer] Apps Indication:Nonsmoker Start:07-Mar-2022 Instruction Type:Patient Education Patient Instructions Indication:Morbid obesity Start:18-Feb-2022 Instruction Type:Provider Instructions for Treatment How to Access Health Informa tion Online using Patient Portal and [employer] Apps Indication:Morbid obesity Start:18-Feb-2022 Instruction Type:Patient Education Patient Instructions Indication:Morbid obesity Start:31-Dec-2021 Instruction Type:Provider Instructions for Treatment How to Access Health Informa tion Online using Patient Portal and [employer] Apps Indication:Morbid obesity Start:31-Dec-2021 Instruction Type:Patient Education Patient Instructions Indication:BMI 40.0-44.9, adult Start:17-Oct-2021 Instruction Type:Provider Instructions for Treatment How to Access Health Informa tion Online using Patient Portal and [employer] Apps Indication:BMI 40.0-44.9, adult Start:17-Oct-2021 Instruction Type:Patient Education Patient Instructions Indication:BMI 40.0-44.9, adult Start:10-Oct-2021 Instruction Type:Provider Instructions for Treatment How to Access Health Informa tion Online using Patient Portal and [employer] Apps Indication:BMI 40.0-44.9, adult Start:10-Oct-2021 Instruction Type:Patient Education Patient Instructions Indication:Cellulitis Start:03-Oct-2021 Instruction Type:Provider Instructions for Treatment Patient Instructions Indication:BMI 40.0-44.9, adult Start:26-Sep-2021 Instruction Type:Provider Instructions for Treatment How to Access Health Informa tion Online using Patient Portal and [employer] Apps Indication:BMI 40.0-44.9, adult Start:26-Sep-2021 Instruction Type:Patient Education Patient Instructions Indication:Nonsmoker Start:10-Aug-2021 Instruction Type:Provider Instructions for Treatment How to Access Health Informa tion Online using Patient Portal and [employer] Apps Indication:Hypertension Start:10-Aug-2021 Instruction Type:Patient Education Patient Instructions Indication:BMI 40.0-44.9, adult Start:09-Aug-2021 Instruction Type:Provider Instructions for Treatment How to Access Health Informa tion Online using Patient Portal and [employer] Apps Indication:BMI 40.0-44.9, adult Start:09-Aug-2021 Instruction Type:Patient Education Patient Instructions Indication:Nonsmoker Start:28-May-2021 Instruction Type:Provider Instructions for Treatment How to Access Health Informa tion Online using Patient Portal and [employer] Apps Indication:Nonsmoker Start:28-May-2021 Instruction Type:Patient Education Patient Instructions Indication:BMI 40.0-44.9, adult Start:04-Apr-2021 Instruction Type:Provider Instructions for Treatment How to Access Health Informa tion Online using Patient Portal and [employer] Apps Indication:BMI 40.0-44.9, adult Start:04-Apr-2021 Instruction Type:Patient Education Patient Instructions Indication:BMI 40.0-44.9, adult Start:20-Mar-2021 Instruction Type:Provider Instructions for Treatment How to Access Health Informa tion Online using Patient Portal and [employer] Apps Indication:BMI 40.0-44.9, adult Start:20-Mar-2021 Instruction Type:Patient Education Patient Instructions Indication:Type 2 diabetes mellitus Start:13-Dec-2020 Instruction Type:Provider Instructions for Treatment How to Access Health Informa tion Online using Patient Portal and [employer] Apps Indication:Type 2 diabetes mellitus Start:13-Dec-2020 Instruction Type:Patient Education Patient Instructions Indication:Type 2 diabetes mellitus Start:15-Sep-2020 Instruction Type:Provider Instructions for Treatment How to Access Health Informa tion Online using Patient Portal and [employer] Apps Indication:Type 2 diabetes mellitus Start:15-Sep-2020 Instruction Type:Patient Education [facility]; [facility] Work Phone: Instructions* Name Dates Details Patient Instructions Indication:BMI 40.0-44.9, adult Start:25-Jul-2022 Instruction Type:Provider Instructions for Treatment How to Access Health Informa tion Online using Patient Portal and [employer] Apps Indication:BMI 40.0-44.9, adult Start:25-Jul-2022 Instruction Type:Patient Education Patient Instructions Indication:BMI 45.0-49.9, adult Start:10-Jul-2022 Instruction Type:Provider Instructions for Treatment How to Access Health Informa tion Online using Patient Portal and [employer] Apps Indication:BMI 45.0-49.9, adult Start:10-Jul-2022 Instruction Type:Patient Education Patient Instructions Indication:Nonsmoker Start:10-Jun-2022 Instruction Type:Provider Instructions for Treatment How to Access Health Informa tion Online using Patient Portal and [employer] Apps Indication:Nonsmoker Start:10-Jun-2022 Instruction Type:Patient Education Patient Instructions Indication:Nonsmoker Start:10-May-2022 Instruction Type:Provider Instructions for Treatment How to Access Health Informa tion Online using Patient Portal and [employer] Apps Indication:Nonsmoker Start:10-May-2022 Instruction Type:Patient Education Patient Instructions Indication:Nonsmoker Start:14-Mar-2022 Instruction Type:Provider Instructions for Treatment How to Access Health Informa tion Online using Patient Portal and [employer] Apps Indication:Nonsmoker Start:14-Mar-2022 Instruction Type:Patient Education Patient Instructions Indication:Nonsmoker Start:07-Mar-2022 Instruction Type:Provider Instructions for Treatment How to Access Health Informa tion Online using Patient Portal and [employer] Apps Indication:Nonsmoker Start:07-Mar-2022 Instruction Type:Patient Education Patient Instructions Indication:Morbid obesity Start:18-Feb-2022 Instruction Type:Provider Instructions for Treatment How to Access Health Informa tion Online using Patient Portal and [employer] Apps Indication:Morbid obesity Start:18-Feb-2022 Instruction Type:Patient Education Patient Instructions Indication:Morbid obesity Start:31-Dec-2021 Instruction Type:Provider Instructions for Treatment How to Access Health Informa tion Online using Patient Portal and [employer] Apps Indication:Morbid obesity Start:31-Dec-2021 Instruction Type:Patient Education Patient Instructions Indication:BMI 40.0-44.9, adult Start:17-Oct-2021 Instruction Type:Provider Instructions for Treatment How to Access Health Informa tion Online using Patient Portal and [employer] Apps Indication:BMI 40.0-44.9, adult Start:17-Oct-2021 Instruction Type:Patient Education Patient Instructions Indication:BMI 40.0-44.9, adult Start:10-Oct-2021 Instruction Type:Provider Instructions for Treatment How to Access Health Informa tion Online using Patient Portal and [employer] Apps Indication:BMI 40.0-44.9, adult Start:10-Oct-2021 Instruction Type:Patient Education Patient Instructions Indication:Cellulitis Start:03-Oct-2021 Instruction Type:Provider Instructions for Treatment Patient Instructions Indication:BMI 40.0-44.9, adult Start:26-Sep-2021 Instruction Type:Provider Instructions for Treatment How to Access Health Informa tion Online using Patient Portal and [employer] Apps Indication:BMI 40.0-44.9, adult Start:26-Sep-2021 Instruction Type:Patient Education Patient Instructions Indication:Nonsmoker Start:10-Aug-2021 Instruction Type:Provider Instructions for Treatment How to Access Health Informa tion Online using Patient Portal and [employer] Apps Indication:Hypertension Start:10-Aug-2021 Instruction Type:Patient Education Patient Instructions Indication:BMI 40.0-44.9, adult Start:09-Aug-2021 Instruction Type:Provider Instructions for Treatment How to Access Health Informa tion Online using Patient Portal and [employer] Apps Indication:BMI 40.0-44.9, adult Start:09-Aug-2021 Instruction Type:Patient Education Patient Instructions Indication:Nonsmoker Start:28-May-2021 Instruction Type:Provider Instructions for Treatment How to Access Health Informa tion Online using Patient Portal and [employer] Apps Indication:Nonsmoker Start:28-May-2021 Instruction Type:Patient Education Patient Instructions Indication:BMI 40.0-44.9, adult Start:04-Apr-2021 Instruction Type:Provider Instructions for Treatment How to Access Health Informa tion Online using Patient Portal and [employer] Apps Indication:BMI 40.0-44.9, adult Start:04-Apr-2021 Instruction Type:Patient Education Patient Instructions Indication:BMI 40.0-44.9, adult Start:20-Mar-2021 Instruction Type:Provider Instructions for Treatment How to Access Health Informa tion Online using Patient Portal and [employer] Apps Indication:BMI 40.0-44.9, adult Start:20-Mar-2021 Instruction Type:Patient Education Patient Instructions Indication:Type 2 diabetes mellitus Start:13-Dec-2020 Instruction Type:Provider Instructions for Treatment How to Access Health Informa tion Online using Patient Portal and [employer] Apps Indication:Type 2 diabetes mellitus Start:13-Dec-2020 Instruction Type:Patient Education Patient Instructions Indication:Type 2 diabetes mellitus Start:15-Sep-2020 Instruction Type:Provider Instructions for Treatment How to Access Health Informa tion Online using Patient Portal and [employer] Apps Indication:Type 2 diabetes mellitus Start:15-Sep-2020 Instruction Type:Patient Education [facility]; [facility] Work Phone: Instructions* Name Dates Details Patient Instructions Indication:BMI 40.0-44.9, adult Start:25-Jul-2022 Instruction Type:Provider Instructions for Treatment How to Access Health Informa tion Online using Patient Portal and [employer] Apps Indication:BMI 40.0-44.9, adult Start:25-Jul-2022 Instruction Type:Patient Education Patient Instructions Indication:BMI 45.0-49.9, adult Start:10-Jul-2022 Instruction Type:Provider Instructions for Treatment How to Access Health Informa tion Online using Patient Portal and [employer] Apps Indication:BMI 45.0-49.9, adult Start:10-Jul-2022 Instruction Type:Patient Education Patient Instructions Indication:Nonsmoker Start:10-Jun-2022 Instruction Type:Provider Instructions for Treatment How to Access Health Informa tion Online using Patient Portal and [employer]rd [employer] Apps Indication:Nonsmoker Start:10-Jun-2022 Instruction Type:Patient Education Patient Instructions Indication:Nonsmoker Start:10-May-2022 Instruction Type:Provider Instructions for Treatment How to Access Health Informa tion Online using Patient Portal and [employer] Apps Indication:Nonsmoker Start:10-May-2022 Instruction Type:Patient Education Patient Instructions Indication:Nonsmoker Start:14-Mar-2022 Instruction Type:Provider Instructions for Treatment How to Access Health Informa tion Online using Patient Portal and [employer] Apps Indication:Nonsmoker Start:14-Mar-2022 Instruction Type:Patient Education Patient Instructions Indication:Nonsmoker Start:07-Mar-2022 Instruction Type:Provider Instructions for Treatment How to Access Health Informa tion Online using Patient Portal and [employer] Apps Indication:Nonsmoker Start:07-Mar-2022 Instruction Type:Patient Education Patient Instructions Indication:Morbid obesity Start:18-Feb-2022 Instruction Type:Provider Instructions for Treatment How to Access Health Informa tion Online using Patient Portal and [employer] Apps Indication:Morbid obesity Start:18-Feb-2022 Instruction Type:Patient Education Patient Instructions Indication:Morbid obesity Start:31-Dec-2021 Instruction Type:Provider Instructions for Treatment How to Access Health Informa tion Online using Patient Portal and [employer] Apps Indication:Morbid obesity Start:31-Dec-2021 Instruction Type:Patient Education Patient Instructions Indication:BMI 40.0-44.9, adult Start:17-Oct-2021 Instruction Type:Provider Instructions for Treatment How to Access Health Informa tion Online using Patient Portal and [employer] Apps Indication:BMI 40.0-44.9, adult Start:17-Oct-2021 Instruction Type:Patient Education Patient Instructions Indication:BMI 40.0-44.9, adult Start:10-Oct-2021 Instruction Type:Provider Instructions for Treatment How to Access Health Informa tion Online using Patient Portal and [employer]rd [employer] Apps Indication:BMI 40.0-44.9, adult Start:10-Oct-2021 Instruction Type:Patient Education Patient Instructions Indication:Cellulitis Start:03-Oct-2021 Instruction Type:Provider Instructions for Treatment Patient Instructions Indication:BMI 40.0-44.9, adult Start:26-Sep-2021 Instruction Type:Provider Instructions for Treatment How to Access Health Informa tion Online using Patient Portal and [employer] Apps Indication:BMI 40.0-44.9, adult Start:26-Sep-2021 Instruction Type:Patient Education Patient Instructions Indication:Nonsmoker Start:10-Aug-2021 Instruction Type:Provider Instructions for Treatment How to Access Health Informa tion Online using Patient Portal and [employer]rd [employer] Apps Indication:Hypertension Start:10-Aug-2021 Instruction Type:Patient Education Patient Instructions Indication:BMI 40.0-44.9, adult Start:09-Aug-2021 Instruction Type:Provider Instructions for Treatment How to Access Health Informa tion Online using Patient Portal and [employer]rd [employer] Apps Indication:BMI 40.0-44.9, adult Start:09-Aug-2021 Instruction Type:Patient Education Patient Instructions Indication:Nonsmoker Start:28-May-2021 Instruction Type:Provider Instructions for Treatment How to Access Health Informa tion Online using Patient Portal and [employer] Apps Indication:Nonsmoker Start:28-May-2021 Instruction Type:Patient Education Patient Instructions Indication:BMI 40.0-44.9, adult Start:04-Apr-2021 Instruction Type:Provider Instructions for Treatment How to Access Health Informa tion Online using Patient Portal and [employer] Apps Indication:BMI 40.0-44.9, adult Start:04-Apr-2021 Instruction Type:Patient Education Patient Instructions Indication:BMI 40.0-44.9, adult Start:20-Mar-2021 Instruction Type:Provider Instructions for Treatment How to Access Health Informa tion Online using Patient Portal and [employer] Apps Indication:BMI 40.0-44.9, adult Start:20-Mar-2021 Instruction Type:Patient Education Patient Instructions Indication:Type 2 diabetes mellitus Start:13-Dec-2020 Instruction Type:Provider Instructions for Treatment How to Access Health Informa tion Online using Patient Portal and [employer] Apps Indication:Type 2 diabetes mellitus Start:13-Dec-2020 Instruction Type:Patient Education Patient Instructions Indication:Type 2 diabetes mellitus Start:15-Sep-2020 Instruction Type:Provider Instructions for Treatment How to Access Health Informa tion Online using Patient Portal and [employer] Apps Indication:Type 2 diabetes mellitus Start:15-Sep-2020 Instruction Type:Patient Education [facility]; [facility] Work Phone: Instructions* Name Dates Details Patient Instructions Indication:BMI 40.0-44.9, adult Start:25-Jul-2022 Instruction Type:Provider Instructions for Treatment How to Access Health Informa tion Online using Patient Portal and [employer] Apps Indication:BMI 40.0-44.9, adult Start:25-Jul-2022 Instruction Type:Patient Education Patient Instructions Indication:BMI 45.0-49.9, adult Start:10-Jul-2022 Instruction Type:Provider Instructions for Treatment How to Access Health Informa tion Online using Patient Portal and [employer]rd [employer] Apps Indication:BMI 45.0-49.9, adult Start:10-Jul-2022 Instruction Type:Patient Education Patient Instructions Indication:Nonsmoker Start:10-Jun-2022 Instruction Type:Provider Instructions for Treatment How to Access Health Informa tion Online using Patient Portal and [employer] Apps Indication:Nonsmoker Start:10-Jun-2022 Instruction Type:Patient Education Patient Instructions Indication:Nonsmoker Start:10-May-2022 Instruction Type:Provider Instructions for Treatment How to Access Health Informa tion Online using Patient Portal and [employer] Apps Indication:Nonsmoker Start:10-May-2022 Instruction Type:Patient Education Patient Instructions Indication:Nonsmoker Start:14-Mar-2022 Instruction Type:Provider Instructions for Treatment How to Access Health Informa tion Online using Patient Portal and [employer] Apps Indication:Nonsmoker Start:14-Mar-2022 Instruction Type:Patient Education Patient Instructions Indication:Nonsmoker Start:07-Mar-2022 Instruction Type:Provider Instructions for Treatment How to Access Health Informa tion Online using Patient Portal and [employer] Apps Indication:Nonsmoker Start:07-Mar-2022 Instruction Type:Patient Education Patient Instructions Indication:Morbid obesity Start:18-Feb-2022 Instruction Type:Provider Instructions for Treatment How to Access Health Informa tion Online using Patient Portal and [employer]rd [employer] Apps Indication:Morbid obesity Start:18-Feb-2022 Instruction Type:Patient Education Patient Instructions Indication:Morbid obesity Start:31-Dec-2021 Instruction Type:Provider Instructions for Treatment How to Access Health Informa tion Online using Patient Portal and [employer] Apps Indication:Morbid obesity Start:31-Dec-2021 Instruction Type:Patient Education Patient Instructions Indication:BMI 40.0-44.9, adult Start:17-Oct-2021 Instruction Type:Provider Instructions for Treatment How to Access Health Informa tion Online using Patient Portal and [employer] Apps Indication:BMI 40.0-44.9, adult Start:17-Oct-2021 Instruction Type:Patient Education Patient Instructions Indication:BMI 40.0-44.9, adult Start:10-Oct-2021 Instruction Type:Provider Instructions for Treatment How to Access Health Informa tion Online using Patient Portal and [employer] Apps Indication:BMI 40.0-44.9, adult Start:10-Oct-2021 Instruction Type:Patient Education Patient Instructions Indication:Cellulitis Start:03-Oct-2021 Instruction Type:Provider Instructions for Treatment Patient Instructions Indication:BMI 40.0-44.9, adult Start:26-Sep-2021 Instruction Type:Provider Instructions for Treatment How to Access Health Informa tion Online using Patient Portal and [employer] Apps Indication:BMI 40.0-44.9, adult Start:26-Sep-2021 Instruction Type:Patient Education Patient Instructions Indication:Nonsmoker Start:10-Aug-2021 Instruction Type:Provider Instructions for Treatment How to Access Health Informa tion Online using Patient Portal and [employer] Apps Indication:Hypertension Start:10-Aug-2021 Instruction Type:Patient Education Patient Instructions Indication:BMI 40.0-44.9, adult Start:09-Aug-2021 Instruction Type:Provider Instructions for Treatment How to Access Health Informa tion Online using Patient Portal and [employer]rd [employer] Apps Indication:BMI 40.0-44.9, adult Start:09-Aug-2021 Instruction Type:Patient Education Patient Instructions Indication:Nonsmoker Start:28-May-2021 Instruction Type:Provider Instructions for Treatment How to Access Health Informa tion Online using Patient Portal and [employer]rd [employer] Apps Indication:Nonsmoker Start:28-May-2021 Instruction Type:Patient Education Patient Instructions Indication:BMI 40.0-44.9, adult Start:04-Apr-2021 Instruction Type:Provider Instructions for Treatment How to Access Health Informa tion Online using Patient Portal and [employer] Apps Indication:BMI 40.0-44.9, adult Start:04-Apr-2021 Instruction Type:Patient Education Patient Instructions Indication:BMI 40.0-44.9, adult Start:20-Mar-2021 Instruction Type:Provider Instructions for Treatment How to Access Health Informa tion Online using Patient Portal and [employer] Apps Indication:BMI 40.0-44.9, adult Start:20-Mar-2021 Instruction Type:Patient Education Patient Instructions Indication:Type 2 diabetes mellitus Start:13-Dec-2020 Instruction Type:Provider Instructions for Treatment How to Access Health Informa tion Online using Patient Portal and [employer] Apps Indication:Type 2 diabetes mellitus Start:13-Dec-2020 Instruction Type:Patient Education Patient Instructions Indication:Type 2 diabetes mellitus Start:15-Sep-2020 Instruction Type:Provider Instructions for Treatment How to Access Health Informa tion Online using Patient Portal and [employer] Apps Indication:Type 2 diabetes mellitus Start:15-Sep-2020 Instruction Type:Patient Education [facility]; [facility] Work Phone: Instructions* Name Dates Details Patient Instructions Indication:BMI 40.0-44.9, adult Start:25-Jul-2022 Instruction Type:Provider Instructions for Treatment How to Access Health Informa tion Online using Patient Portal and [employer] Apps Indication:BMI 40.0-44.9, adult Start:25-Jul-2022 Instruction Type:Patient Education Patient Instructions Indication:BMI 45.0-49.9, adult Start:10-Jul-2022 Instruction Type:Provider Instructions for Treatment How to Access Health Informa tion Online using Patient Portal and [employer] Apps Indication:BMI 45.0-49.9, adult Start:10-Jul-2022 Instruction Type:Patient Education Patient Instructions Indication:Nonsmoker Start:10-Jun-2022 Instruction Type:Provider Instructions for Treatment How to Access Health Informa tion Online using Patient Portal and [employer] Apps Indication:Nonsmoker Start:10-Jun-2022 Instruction Type:Patient Education Patient Instructions Indication:Nonsmoker Start:10-May-2022 Instruction Type:Provider Instructions for Treatment How to Access Health Informa tion Online using Patient Portal and [employer] Apps Indication:Nonsmoker Start:10-May-2022 Instruction Type:Patient Education Patient Instructions Indication:Nonsmoker Start:14-Mar-2022 Instruction Type:Provider Instructions for Treatment How to Access Health Informa tion Online using Patient Portal and [employer] Apps Indication:Nonsmoker Start:14-Mar-2022 Instruction Type:Patient Education Patient Instructions Indication:Nonsmoker Start:07-Mar-2022 Instruction Type:Provider Instructions for Treatment How to Access Health Informa tion Online using Patient Portal and [employer] Apps Indication:Nonsmoker Start:07-Mar-2022 Instruction Type:Patient Education Patient Instructions Indication:Morbid obesity Start:18-Feb-2022 Instruction Type:Provider Instructions for Treatment How to Access Health Informa tion Online using Patient Portal and [employer] Apps Indication:Morbid obesity Start:18-Feb-2022 Instruction Type:Patient Education Patient Instructions Indication:Morbid obesity Start:31-Dec-2021 Instruction Type:Provider Instructions for Treatment How to Access Health Informa tion Online using Patient Portal and [employer] Apps Indication:Morbid obesity Start:31-Dec-2021 Instruction Type:Patient Education Patient Instructions Indication:BMI 40.0-44.9, adult Start:17-Oct-2021 Instruction Type:Provider Instructions for Treatment How to Access Health Informa tion Online using Patient Portal and [employer] Apps Indication:BMI 40.0-44.9, adult Start:17-Oct-2021 Instruction Type:Patient Education Patient Instructions Indication:BMI 40.0-44.9, adult Start:10-Oct-2021 Instruction Type:Provider Instructions for Treatment How to Access Health Informa tion Online using Patient Portal and [employer] Apps Indication:BMI 40.0-44.9, adult Start:10-Oct-2021 Instruction Type:Patient Education Patient Instructions Indication:Cellulitis Start:03-Oct-2021 Instruction Type:Provider Instructions for Treatment Patient Instructions Indication:BMI 40.0-44.9, adult Start:26-Sep-2021 Instruction Type:Provider Instructions for Treatment How to Access Health Informa tion Online using Patient Portal and [employer] Apps Indication:BMI 40.0-44.9, adult Start:26-Sep-2021 Instruction Type:Patient Education Patient Instructions Indication:Nonsmoker Start:10-Aug-2021 Instruction Type:Provider Instructions for Treatment How to Access Health Informa tion Online using Patient Portal and [employer] Apps Indication:Hypertension Start:10-Aug-2021 Instruction Type:Patient Education Patient Instructions Indication:BMI 40.0-44.9, adult Start:09-Aug-2021 Instruction Type:Provider Instructions for Treatment How to Access Health Informa tion Online using Patient Portal and [employer]rd [employer] Apps Indication:BMI 40.0-44.9, adult Start:09-Aug-2021 Instruction Type:Patient Education Patient Instructions Indication:Nonsmoker Start:28-May-2021 Instruction Type:Provider Instructions for Treatment How to Access Health Informa tion Online using Patient Portal and [employer]rd [employer] Apps Indication:Nonsmoker Start:28-May-2021 Instruction Type:Patient Education Patient Instructions Indication:BMI 40.0-44.9, adult Start:04-Apr-2021 Instruction Type:Provider Instructions for Treatment How to Access Health Informa tion Online using Patient Portal and [employer]rd [employer] Apps Indication:BMI 40.0-44.9, adult Start:04-Apr-2021 Instruction Type:Patient Education Patient Instructions Indication:BMI 40.0-44.9, adult Start:20-Mar-2021 Instruction Type:Provider Instructions for Treatment How to Access Health Informa tion Online using Patient Portal and [employer]rd [employer] Apps Indication:BMI 40.0-44.9, adult Start:20-Mar-2021 Instruction Type:Patient Education Patient Instructions Indication:Type 2 diabetes mellitus Start:13-Dec-2020 Instruction Type:Provider Instructions for Treatment How to Access Health Informa tion Online using Patient Portal and [employer]rd [employer] Apps Indication:Type 2 diabetes mellitus Start:13-Dec-2020 Instruction Type:Patient Education Patient Instructions Indication:Type 2 diabetes mellitus Start:15-Sep-2020 Instruction Type:Provider Instructions for Treatment How to Access Health Informa tion Online using Patient Portal and [employer]rd [employer] Apps Indication:Type 2 diabetes mellitus Start:15-Sep-2020 Instruction Type:Patient Education [facility]; [facility] Work Phone: Instructions* Name Dates Details Patient Instructions Indication:BMI 40.0-44.9, adult Start:25-Jul-2022 Instruction Type:Provider Instructions for Treatment How to Access Health Informa tion Online using Patient Portal and [employer]rd [employer] Apps Indication:BMI 40.0-44.9, adult Start:25-Jul-2022 Instruction Type:Patient Education Patient Instructions Indication:BMI 45.0-49.9, adult Start:10-Jul-2022 Instruction Type:Provider Instructions for Treatment How to Access Health Informa tion Online using Patient Portal and [employer]rd [employer] Apps Indication:BMI 45.0-49.9, adult Start:10-Jul-2022 Instruction Type:Patient Education Patient Instructions Indication:Nonsmoker Start:10-Jun-2022 Instruction Type:Provider Instructions for Treatment How to Access Health Informa tion Online using Patient Portal and [employer] Apps Indication:Nonsmoker Start:10-Jun-2022 Instruction Type:Patient Education Patient Instructions Indication:Nonsmoker Start:10-May-2022 Instruction Type:Provider Instructions for Treatment How to Access Health Informa tion Online using Patient Portal and [employer]rd [employer] Apps Indication:Nonsmoker Start:10-May-2022 Instruction Type:Patient Education Patient Instructions Indication:Nonsmoker Start:14-Mar-2022 Instruction Type:Provider Instructions for Treatment How to Access Health Informa tion Online using Patient Portal and [employer]rd [employer] Apps Indication:Nonsmoker Start:14-Mar-2022 Instruction Type:Patient Education Patient Instructions Indication:Nonsmoker Start:07-Mar-2022 Instruction Type:Provider Instructions for Treatment How to Access Health Informa tion Online using Patient Portal and [employer] Apps Indication:Nonsmoker Start:07-Mar-2022 Instruction Type:Patient Education Patient Instructions Indication:Morbid obesity Start:18-Feb-2022 Instruction Type:Provider Instructions for Treatment How to Access Health Informa tion Online using Patient Portal and [employer]rd [employer] Apps Indication:Morbid obesity Start:18-Feb-2022 Instruction Type:Patient Education Patient Instructions Indication:Morbid obesity Start:31-Dec-2021 Instruction Type:Provider Instructions for Treatment How to Access Health Informa tion Online using Patient Portal and [employer]rd [employer] Apps Indication:Morbid obesity Start:31-Dec-2021 Instruction Type:Patient Education Patient Instructions Indication:BMI 40.0-44.9, adult Start:17-Oct-2021 Instruction Type:Provider Instructions for Treatment How to Access Health Informa tion Online using Patient Portal and [employer] Apps Indication:BMI 40.0-44.9, adult Start:17-Oct-2021 Instruction Type:Patient Education Patient Instructions Indication:BMI 40.0-44.9, adult Start:10-Oct-2021 Instruction Type:Provider Instructions for Treatment How to Access Health Informa tion Online using Patient Portal and [employer]rd [employer] Apps Indication:BMI 40.0-44.9, adult Start:10-Oct-2021 Instruction Type:Patient Education Patient Instructions Indication:Cellulitis Start:03-Oct-2021 Instruction Type:Provider Instructions for Treatment Patient Instructions Indication:BMI 40.0-44.9, adult Start:26-Sep-2021 Instruction Type:Provider Instructions for Treatment How to Access Health Informa tion Online using Patient Portal and [employer]rd [employer] Apps Indication:BMI 40.0-44.9, adult Start:26-Sep-2021 Instruction Type:Patient Education Patient Instructions Indication:Nonsmoker Start:10-Aug-2021 Instruction Type:Provider Instructions for Treatment How to Access Health Informa tion Online using Patient Portal and [employer]rd [employer] Apps Indication:Hypertension Start:10-Aug-2021 Instruction Type:Patient Education Patient Instructions Indication:BMI 40.0-44.9, adult Start:09-Aug-2021 Instruction Type:Provider Instructions for Treatment How to Access Health Informa tion Online using Patient Portal and [employer] Apps Indication:BMI 40.0-44.9, adult Start:09-Aug-2021 Instruction Type:Patient Education Patient Instructions Indication:Nonsmoker Start:28-May-2021 Instruction Type:Provider Instructions for Treatment How to Access Health Informa tion Online using Patient Portal and [employer] Apps Indication:Nonsmoker Start:28-May-2021 Instruction Type:Patient Education Patient Instructions Indication:BMI 40.0-44.9, adult Start:04-Apr-2021 Instruction Type:Provider Instructions for Treatment How to Access Health Informa tion Online using Patient Portal and [employer] Apps Indication:BMI 40.0-44.9, adult Start:04-Apr-2021 Instruction Type:Patient Education Patient Instructions Indication:BMI 40.0-44.9, adult Start:20-Mar-2021 Instruction Type:Provider Instructions for Treatment How to Access Health Informa tion Online using Patient Portal and [employer] Apps Indication:BMI 40.0-44.9, adult Start:20-Mar-2021 Instruction Type:Patient Education Patient Instructions Indication:Type 2 diabetes mellitus Start:13-Dec-2020 Instruction Type:Provider Instructions for Treatment How to Access Health Informa tion Online using Patient Portal and [employer] Apps Indication:Type 2 diabetes mellitus Start:13-Dec-2020 Instruction Type:Patient Education Patient Instructions Indication:Type 2 diabetes mellitus Start:15-Sep-2020 Instruction Type:Provider Instructions for Treatment How to Access Health Informa tion Online using Patient Portal and [employer] Apps Indication:Type 2 diabetes mellitus Start:15-Sep-2020 Instruction Type:Patient Education [facility]; [facility] Work Phone: Instructions* Name Dates Details Patient Instructions Indication:Nonsmoker Start:29-Aug-2022 Instruction Type:Provider Instructions for Treatment How to Access Health Informa tion Online using Patient Portal and [employer] Apps Indication:Nonsmoker Start:29-Aug-2022 Instruction Type:Patient Education Patient Instructions Indication:BMI 40.0-44.9, adult Start:25-Jul-2022 Instruction Type:Provider Instructions for Treatment How to Access Health Informa tion Online using Patient Portal and [employer] Apps Indication:BMI 40.0-44.9, adult Start:25-Jul-2022 Instruction Type:Patient Education Patient Instructions Indication:BMI 45.0-49.9, adult Start:10-Jul-2022 Instruction Type:Provider Instructions for Treatment How to Access Health Informa tion Online using Patient Portal and [employer] Apps Indication:BMI 45.0-49.9, adult Start:10-Jul-2022 Instruction Type:Patient Education Patient Instructions Indication:Nonsmoker Start:10-Jun-2022 Instruction Type:Provider Instructions for Treatment How to Access Health Informa tion Online using Patient Portal and [employer] Apps Indication:Nonsmoker Start:10-Jun-2022 Instruction Type:Patient Education Patient Instructions Indication:Nonsmoker Start:10-May-2022 Instruction Type:Provider Instructions for Treatment How to Access Health Informa tion Online using Patient Portal and [employer] Apps Indication:Nonsmoker Start:10-May-2022 Instruction Type:Patient Education Patient Instructions Indication:Nonsmoker Start:14-Mar-2022 Instruction Type:Provider Instructions for Treatment How to Access Health Informa tion Online using Patient Portal and [employer] Apps Indication:Nonsmoker Start:14-Mar-2022 Instruction Type:Patient Education Patient Instructions Indication:Nonsmoker Start:07-Mar-2022 Instruction Type:Provider Instructions for Treatment How to Access Health Informa tion Online using Patient Portal and [employer] Apps Indication:Nonsmoker Start:07-Mar-2022 Instruction Type:Patient Education Patient Instructions Indication:Morbid obesity Start:18-Feb-2022 Instruction Type:Provider Instructions for Treatment How to Access Health Informa tion Online using Patient Portal and [employer] Apps Indication:Morbid obesity Start:18-Feb-2022 Instruction Type:Patient Education Patient Instructions Indication:Morbid obesity Start:31-Dec-2021 Instruction Type:Provider Instructions for Treatment How to Access Health Informa tion Online using Patient Portal and [employer] Apps Indication:Morbid obesity Start:31-Dec-2021 Instruction Type:Patient Education Patient Instructions Indication:BMI 40.0-44.9, adult Start:17-Oct-2021 Instruction Type:Provider Instructions for Treatment How to Access Health Informa tion Online using Patient Portal and [employer] Apps Indication:BMI 40.0-44.9, adult Start:17-Oct-2021 Instruction Type:Patient Education Patient Instructions Indication:BMI 40.0-44.9, adult Start:10-Oct-2021 Instruction Type:Provider Instructions for Treatment How to Access Health Informa tion Online using Patient Portal and [employer] Apps Indication:BMI 40.0-44.9, adult Start:10-Oct-2021 Instruction Type:Patient Education Patient Instructions Indication:Cellulitis Start:03-Oct-2021 Instruction Type:Provider Instructions for Treatment Patient Instructions Indication:BMI 40.0-44.9, adult Start:26-Sep-2021 Instruction Type:Provider Instructions for Treatment How to Access Health Informa tion Online using Patient Portal and [employer] Apps Indication:BMI 40.0-44.9, adult Start:26-Sep-2021 Instruction Type:Patient Education Patient Instructions Indication:Nonsmoker Start:10-Aug-2021 Instruction Type:Provider Instructions for Treatment How to Access Health Informa tion Online using Patient Portal and [employer] Apps Indication:Hypertension Start:10-Aug-2021 Instruction Type:Patient Education Patient Instructions Indication:BMI 40.0-44.9, adult Start:09-Aug-2021 Instruction Type:Provider Instructions for Treatment How to Access Health Informa tion Online using Patient Portal and [employer] Apps Indication:BMI 40.0-44.9, adult Start:09-Aug-2021 Instruction Type:Patient Education Patient Instructions Indication:Nonsmoker Start:28-May-2021 Instruction Type:Provider Instructions for Treatment How to Access Health Informa tion Online using Patient Portal and [employer] Apps Indication:Nonsmoker Start:28-May-2021 Instruction Type:Patient Education Patient Instructions Indication:BMI 40.0-44.9, adult Start:04-Apr-2021 Instruction Type:Provider Instructions for Treatment How to Access Health Informa tion Online using Patient Portal and [employer] Apps Indication:BMI 40.0-44.9, adult Start:04-Apr-2021 Instruction Type:Patient Education Patient Instructions Indication:BMI 40.0-44.9, adult Start:20-Mar-2021 Instruction Type:Provider Instructions for Treatment How to Access Health Informa tion Online using Patient Portal and [employer] Apps Indication:BMI 40.0-44.9, adult Start:20-Mar-2021 Instruction Type:Patient Education Patient Instructions Indication:Type 2 diabetes mellitus Start:13-Dec-2020 Instruction Type:Provider Instructions for Treatment How to Access Health Informa tion Online using Patient Portal and [employer] Apps Indication:Type 2 diabetes mellitus Start:13-Dec-2020 Instruction Type:Patient Education Patient Instructions Indication:Type 2 diabetes mellitus Start:15-Sep-2020 Instruction Type:Provider Instructions for Treatment How to Access Health Informa tion Online using Patient Portal and [employer] Apps Indication:Type 2 diabetes mellitus Start:15-Sep-2020 Instruction Type:Patient Education [facility]; [facility] Work Phone: Instructions* Name Dates Details Patient Instructions Indication:Nonsmoker Start:29-Aug-2022 Instruction Type:Provider Instructions for Treatment How to Access Health Informa tion Online using Patient Portal and [employer] Apps Indication:Nonsmoker Start:29-Aug-2022 Instruction Type:Patient Education Patient Instructions Indication:BMI 40.0-44.9, adult Start:25-Jul-2022 Instruction Type:Provider Instructions for Treatment How to Access Health Informa tion Online using Patient Portal and [employer] Apps Indication:BMI 40.0-44.9, adult Start:25-Jul-2022 Instruction Type:Patient Education Patient Instructions Indication:BMI 45.0-49.9, adult Start:10-Jul-2022 Instruction Type:Provider Instructions for Treatment How to Access Health Informa tion Online using Patient Portal and [employer] Apps Indication:BMI 45.0-49.9, adult Start:10-Jul-2022 Instruction Type:Patient Education Patient Instructions Indication:Nonsmoker Start:10-Jun-2022 Instruction Type:Provider Instructions for Treatment How to Access Health Informa tion Online using Patient Portal and [employer] Apps Indication:Nonsmoker Start:10-Jun-2022 Instruction Type:Patient Education Patient Instructions Indication:Nonsmoker Start:10-May-2022 Instruction Type:Provider Instructions for Treatment How to Access Health Informa tion Online using Patient Portal and [employer] Apps Indication:Nonsmoker Start:10-May-2022 Instruction Type:Patient Education Patient Instructions Indication:Nonsmoker Start:14-Mar-2022 Instruction Type:Provider Instructions for Treatment How to Access Health Informa tion Online using Patient Portal and [employer]rd [employer] Apps Indication:Nonsmoker Start:14-Mar-2022 Instruction Type:Patient Education Patient Instructions Indication:Nonsmoker Start:07-Mar-2022 Instruction Type:Provider Instructions for Treatment How to Access Health Informa tion Online using Patient Portal and [employer] Apps Indication:Nonsmoker Start:07-Mar-2022 Instruction Type:Patient Education Patient Instructions Indication:Morbid obesity Start:18-Feb-2022 Instruction Type:Provider Instructions for Treatment How to Access Health Informa tion Online using Patient Portal and [employer] Apps Indication:Morbid obesity Start:18-Feb-2022 Instruction Type:Patient Education Patient Instructions Indication:Morbid obesity Start:31-Dec-2021 Instruction Type:Provider Instructions for Treatment How to Access Health Informa tion Online using Patient Portal and [employer]rd [employer] Apps Indication:Morbid obesity Start:31-Dec-2021 Instruction Type:Patient Education Patient Instructions Indication:BMI 40.0-44.9, adult Start:17-Oct-2021 Instruction Type:Provider Instructions for Treatment How to Access Health Informa tion Online using Patient Portal and [employer] Apps Indication:BMI 40.0-44.9, adult Start:17-Oct-2021 Instruction Type:Patient Education Patient Instructions Indication:BMI 40.0-44.9, adult Start:10-Oct-2021 Instruction Type:Provider Instructions for Treatment How to Access Health Informa tion Online using Patient Portal and [employer]rd [employer] Apps Indication:BMI 40.0-44.9, adult Start:10-Oct-2021 Instruction Type:Patient Education Patient Instructions Indication:Cellulitis Start:03-Oct-2021 Instruction Type:Provider Instructions for Treatment Patient Instructions Indication:BMI 40.0-44.9, adult Start:26-Sep-2021 Instruction Type:Provider Instructions for Treatment How to Access Health Informa tion Online using Patient Portal and [employer]rd [employer] Apps Indication:BMI 40.0-44.9, adult Start:26-Sep-2021 Instruction Type:Patient Education Patient Instructions Indication:Nonsmoker Start:10-Aug-2021 Instruction Type:Provider Instructions for Treatment How to Access Health Informa tion Online using Patient Portal and [employer] Apps Indication:Hypertension Start:10-Aug-2021 Instruction Type:Patient Education Patient Instructions Indication:BMI 40.0-44.9, adult Start:09-Aug-2021 Instruction Type:Provider Instructions for Treatment How to Access Health Informa tion Online using Patient Portal and [employer] Apps Indication:BMI 40.0-44.9, adult Start:09-Aug-2021 Instruction Type:Patient Education Patient Instructions Indication:Nonsmoker Start:28-May-2021 Instruction Type:Provider Instructions for Treatment How to Access Health Informa tion Online using Patient Portal and [employer]rd [employer] Apps Indication:Nonsmoker Start:28-May-2021 Instruction Type:Patient Education Patient Instructions Indication:BMI 40.0-44.9, adult Start:04-Apr-2021 Instruction Type:Provider Instructions for Treatment How to Access Health Informa tion Online using Patient Portal and [employer]rd [employer] Apps Indication:BMI 40.0-44.9, adult Start:04-Apr-2021 Instruction Type:Patient Education Patient Instructions Indication:BMI 40.0-44.9, adult Start:20-Mar-2021 Instruction Type:Provider Instructions for Treatment How to Access Health Informa tion Online using Patient Portal and [employer] Apps Indication:BMI 40.0-44.9, adult Start:20-Mar-2021 Instruction Type:Patient Education Patient Instructions Indication:Type 2 diabetes mellitus Start:13-Dec-2020 Instruction Type:Provider Instructions for Treatment How to Access Health Informa tion Online using Patient Portal and [employer]rd [employer] Apps Indication:Type 2 diabetes mellitus Start:13-Dec-2020 Instruction Type:Patient Education Patient Instructions Indication:Type 2 diabetes mellitus Start:15-Sep-2020 Instruction Type:Provider Instructions for Treatment How to Access Health Informa tion Online using Patient Portal and [employer]rd [employer] Apps Indication:Type 2 diabetes mellitus Start:15-Sep-2020 Instruction Type:Patient Education [facility]; [facility] Work Phone: Instructions* Name Dates Details Patient Instructions Indication:Nonsmoker Start:29-Aug-2022 Instruction Type:Provider Instructions for Treatment How to Access Health Informa tion Online using Patient Portal and [employer]rd [employer] Apps Indication:Nonsmoker Start:29-Aug-2022 Instruction Type:Patient Education Patient Instructions Indication:BMI 40.0-44.9, adult Start:25-Jul-2022 Instruction Type:Provider Instructions for Treatment How to Access Health Informa tion Online using Patient Portal and [employer] Apps Indication:BMI 40.0-44.9, adult Start:25-Jul-2022 Instruction Type:Patient Education Patient Instructions Indication:BMI 45.0-49.9, adult Start:10-Jul-2022 Instruction Type:Provider Instructions for Treatment How to Access Health Informa tion Online using Patient Portal and [employer] Apps Indication:BMI 45.0-49.9, adult Start:10-Jul-2022 Instruction Type:Patient Education Patient Instructions Indication:Nonsmoker Start:10-Jun-2022 Instruction Type:Provider Instructions for Treatment How to Access Health Informa tion Online using Patient Portal and [employer] Apps Indication:Nonsmoker Start:10-Jun-2022 Instruction Type:Patient Education Patient Instructions Indication:Nonsmoker Start:10-May-2022 Instruction Type:Provider Instructions for Treatment How to Access Health Informa tion Online using Patient Portal and [employer]rd [employer] Apps Indication:Nonsmoker Start:10-May-2022 Instruction Type:Patient Education Patient Instructions Indication:Nonsmoker Start:14-Mar-2022 Instruction Type:Provider Instructions for Treatment How to Access Health Informa tion Online using Patient Portal and [employer]rd [employer] Apps Indication:Nonsmoker Start:14-Mar-2022 Instruction Type:Patient Education Patient Instructions Indication:Nonsmoker Start:07-Mar-2022 Instruction Type:Provider Instructions for Treatment How to Access Health Informa tion Online using Patient Portal and [employer]rd [employer] Apps Indication:Nonsmoker Start:07-Mar-2022 Instruction Type:Patient Education Patient Instructions Indication:Morbid obesity Start:18-Feb-2022 Instruction Type:Provider Instructions for Treatment How to Access Health Informa tion Online using Patient Portal and [employer]rd [employer] Apps Indication:Morbid obesity Start:18-Feb-2022 Instruction Type:Patient Education Patient Instructions Indication:Morbid obesity Start:31-Dec-2021 Instruction Type:Provider Instructions for Treatment How to Access Health Informa tion Online using Patient Portal and [employer]rd [employer] Apps Indication:Morbid obesity Start:31-Dec-2021 Instruction Type:Patient Education Patient Instructions Indication:BMI 40.0-44.9, adult Start:17-Oct-2021 Instruction Type:Provider Instructions for Treatment How to Access Health Informa tion Online using Patient Portal and [employer]rd [employer] Apps Indication:BMI 40.0-44.9, adult Start:17-Oct-2021 Instruction Type:Patient Education Patient Instructions Indication:BMI 40.0-44.9, adult Start:10-Oct-2021 Instruction Type:Provider Instructions for Treatment How to Access Health Informa tion Online using Patient Portal and [employer]rd [employer] Apps Indication:BMI 40.0-44.9, adult Start:10-Oct-2021 Instruction Type:Patient Education Patient Instructions Indication:Cellulitis Start:03-Oct-2021 Instruction Type:Provider Instructions for Treatment Patient Instructions Indication:BMI 40.0-44.9, adult Start:26-Sep-2021 Instruction Type:Provider Instructions for Treatment How to Access Health Informa tion Online using Patient Portal and [employer]rd [employer] Apps Indication:BMI 40.0-44.9, adult Start:26-Sep-2021 Instruction Type:Patient Education Patient Instructions Indication:Nonsmoker Start:10-Aug-2021 Instruction Type:Provider Instructions for Treatment How to Access Health Informa tion Online using Patient Portal and [employer]rd [employer] Apps Indication:Hypertension Start:10-Aug-2021 Instruction Type:Patient Education Patient Instructions Indication:BMI 40.0-44.9, adult Start:09-Aug-2021 Instruction Type:Provider Instructions for Treatment How to Access Health Informa tion Online using Patient Portal and [employer]rd [employer] Apps Indication:BMI 40.0-44.9, adult Start:09-Aug-2021 Instruction Type:Patient Education Patient Instructions Indication:Nonsmoker Start:28-May-2021 Instruction Type:Provider Instructions for Treatment How to Access Health Informa tion Online using Patient Portal and [employer] Apps Indication:Nonsmoker Start:28-May-2021 Instruction Type:Patient Education Patient Instructions Indication:BMI 40.0-44.9, adult Start:04-Apr-2021 Instruction Type:Provider Instructions for Treatment How to Access Health Informa tion Online using Patient Portal and [employer] Apps Indication:BMI 40.0-44.9, adult Start:04-Apr-2021 Instruction Type:Patient Education Patient Instructions Indication:BMI 40.0-44.9, adult Start:20-Mar-2021 Instruction Type:Provider Instructions for Treatment How to Access Health Informa tion Online using Patient Portal and [employer] Apps Indication:BMI 40.0-44.9, adult Start:20-Mar-2021 Instruction Type:Patient Education Patient Instructions Indication:Type 2 diabetes mellitus Start:13-Dec-2020 Instruction Type:Provider Instructions for Treatment How to Access Health Informa tion Online using Patient Portal and [employer]rd [employer] Apps Indication:Type 2 diabetes mellitus Start:13-Dec-2020 Instruction Type:Patient Education Patient Instructions Indication:Type 2 diabetes mellitus Start:15-Sep-2020 Instruction Type:Provider Instructions for Treatment How to Access Health Informa tion Online using Patient Portal and [employer]rd [employer] Apps Indication:Type 2 diabetes mellitus Start:15-Sep-2020 Instruction Type:Patient Education [facility]; [facility] Work Phone: Instructions* Name Dates Details Patient Instructions Indication:Nonsmoker Start:29-Aug-2022 Instruction Type:Provider Instructions for Treatment How to Access Health Informa tion Online using Patient Portal and [employer]rd [employer] Apps Indication:Nonsmoker Start:29-Aug-2022 Instruction Type:Patient Education Patient Instructions Indication:BMI 40.0-44.9, adult Start:25-Jul-2022 Instruction Type:Provider Instructions for Treatment How to Access Health Informa tion Online using Patient Portal and [employer]rd [employer] Apps Indication:BMI 40.0-44.9, adult Start:25-Jul-2022 Instruction Type:Patient Education Patient Instructions Indication:BMI 45.0-49.9, adult Start:10-Jul-2022 Instruction Type:Provider Instructions for Treatment How to Access Health Informa tion Online using Patient Portal and [employer]rd [employer] Apps Indication:BMI 45.0-49.9, adult Start:10-Jul-2022 Instruction Type:Patient Education Patient Instructions Indication:Nonsmoker Start:10-Jun-2022 Instruction Type:Provider Instructions for Treatment How to Access Health Informa tion Online using Patient Portal and [employer]rd [employer] Apps Indication:Nonsmoker Start:10-Jun-2022 Instruction Type:Patient Education Patient Instructions Indication:Nonsmoker Start:10-May-2022 Instruction Type:Provider Instructions for Treatment How to Access Health Informa tion Online using Patient Portal and [employer]rd [employer] Apps Indication:Nonsmoker Start:10-May-2022 Instruction Type:Patient Education Patient Instructions Indication:Nonsmoker Start:14-Mar-2022 Instruction Type:Provider Instructions for Treatment How to Access Health Informa tion Online using Patient Portal and [employer]rd [employer] Apps Indication:Nonsmoker Start:14-Mar-2022 Instruction Type:Patient Education Patient Instructions Indication:Nonsmoker Start:07-Mar-2022 Instruction Type:Provider Instructions for Treatment How to Access Health Informa tion Online using Patient Portal and [employer]rd [employer] Apps Indication:Nonsmoker Start:07-Mar-2022 Instruction Type:Patient Education Patient Instructions Indication:Morbid obesity Start:18-Feb-2022 Instruction Type:Provider Instructions for Treatment How to Access Health Informa tion Online using Patient Portal and [employer]rd [employer] Apps Indication:Morbid obesity Start:18-Feb-2022 Instruction Type:Patient Education Patient Instructions Indication:Morbid obesity Start:31-Dec-2021 Instruction Type:Provider Instructions for Treatment How to Access Health Informa tion Online using Patient Portal and [employer]rd [employer] Apps Indication:Morbid obesity Start:31-Dec-2021 Instruction Type:Patient Education Patient Instructions Indication:BMI 40.0-44.9, adult Start:17-Oct-2021 Instruction Type:Provider Instructions for Treatment How to Access Health Informa tion Online using Patient Portal and [employer]rd [employer] Apps Indication:BMI 40.0-44.9, adult Start:17-Oct-2021 Instruction Type:Patient Education Patient Instructions Indication:BMI 40.0-44.9, adult Start:10-Oct-2021 Instruction Type:Provider Instructions for Treatment How to Access Health Informa tion Online using Patient Portal and [employer]rd [employer] Apps Indication:BMI 40.0-44.9, adult Start:10-Oct-2021 Instruction Type:Patient Education Patient Instructions Indication:Cellulitis Start:03-Oct-2021 Instruction Type:Provider Instructions for Treatment Patient Instructions Indication:BMI 40.0-44.9, adult Start:26-Sep-2021 Instruction Type:Provider Instructions for Treatment How to Access Health Informa tion Online using Patient Portal and [employer]rd [employer] Apps Indication:BMI 40.0-44.9, adult Start:26-Sep-2021 Instruction Type:Patient Education Patient Instructions Indication:Nonsmoker Start:10-Aug-2021 Instruction Type:Provider Instructions for Treatment How to Access Health Informa tion Online using Patient Portal and [employer]rd [employer] Apps Indication:Hypertension Start:10-Aug-2021 Instruction Type:Patient Education Patient Instructions Indication:BMI 40.0-44.9, adult Start:09-Aug-2021 Instruction Type:Provider Instructions for Treatment How to Access Health Informa tion Online using Patient Portal and [employer]rd [employer] Apps Indication:BMI 40.0-44.9, adult Start:09-Aug-2021 Instruction Type:Patient Education Patient Instructions Indication:Nonsmoker Start:28-May-2021 Instruction Type:Provider Instructions for Treatment How to Access Health Informa tion Online using Patient Portal and [employer]rd [employer] Apps Indication:Nonsmoker Start:28-May-2021 Instruction Type:Patient Education Patient Instructions Indication:BMI 40.0-44.9, adult Start:04-Apr-2021 Instruction Type:Provider Instructions for Treatment How to Access Health Informa tion Online using Patient Portal and [employer]rd [employer] Apps Indication:BMI 40.0-44.9, adult Start:04-Apr-2021 Instruction Type:Patient Education Patient Instructions Indication:BMI 40.0-44.9, adult Start:20-Mar-2021 Instruction Type:Provider Instructions for Treatment How to Access Health Informa tion Online using Patient Portal and [employer]rd [employer] Apps Indication:BMI 40.0-44.9, adult Start:20-Mar-2021 Instruction Type:Patient Education Patient Instructions Indication:Type 2 diabetes mellitus Start:13-Dec-2020 Instruction Type:Provider Instructions for Treatment How to Access Health Informa tion Online using Patient Portal and [employer]rd [employer] Apps Indication:Type 2 diabetes mellitus Start:13-Dec-2020 Instruction Type:Patient Education Patient Instructions Indication:Type 2 diabetes mellitus Start:15-Sep-2020 Instruction Type:Provider Instructions for Treatment How to Access Health Informa tion Online using Patient Portal and [employer]rd [employer] Apps Indication:Type 2 diabetes mellitus Start:15-Sep-2020 Instruction Type:Patient Education [facility]; [facility] Work Phone: Instructions* Name Dates Details Patient Instructions Indication:Nonsmoker Start:29-Aug-2022 Instruction Type:Provider Instructions for Treatment How to Access Health Informa tion Online using Patient Portal and [employer]rd [employer] Apps Indication:Nonsmoker Start:29-Aug-2022 Instruction Type:Patient Education Patient Instructions Indication:BMI 40.0-44.9, adult Start:25-Jul-2022 Instruction Type:Provider Instructions for Treatment How to Access Health Informa tion Online using Patient Portal and [employer]rd [employer] Apps Indication:BMI 40.0-44.9, adult Start:25-Jul-2022 Instruction Type:Patient Education Patient Instructions Indication:BMI 45.0-49.9, adult Start:10-Jul-2022 Instruction Type:Provider Instructions for Treatment How to Access Health Informa tion Online using Patient Portal and [employer]rd [employer] Apps Indication:BMI 45.0-49.9, adult Start:10-Jul-2022 Instruction Type:Patient Education Patient Instructions Indication:Nonsmoker Start:10-Jun-2022 Instruction Type:Provider Instructions for Treatment How to Access Health Informa tion Online using Patient Portal and [employer] Apps Indication:Nonsmoker Start:10-Jun-2022 Instruction Type:Patient Education Patient Instructions Indication:Nonsmoker Start:10-May-2022 Instruction Type:Provider Instructions for Treatment How to Access Health Informa tion Online using Patient Portal and [employer]rd [employer] Apps Indication:Nonsmoker Start:10-May-2022 Instruction Type:Patient Education Patient Instructions Indication:Nonsmoker Start:14-Mar-2022 Instruction Type:Provider Instructions for Treatment How to Access Health Informa tion Online using Patient Portal and [employer]rd [employer] Apps Indication:Nonsmoker Start:14-Mar-2022 Instruction Type:Patient Education Patient Instructions Indication:Nonsmoker Start:07-Mar-2022 Instruction Type:Provider Instructions for Treatment How to Access Health Informa tion Online using Patient Portal and [employer] Apps Indication:Nonsmoker Start:07-Mar-2022 Instruction Type:Patient Education Patient Instructions Indication:Morbid obesity Start:18-Feb-2022 Instruction Type:Provider Instructions for Treatment How to Access Health Informa tion Online using Patient Portal and [employer]rd [employer] Apps Indication:Morbid obesity Start:18-Feb-2022 Instruction Type:Patient Education Patient Instructions Indication:Morbid obesity Start:31-Dec-2021 Instruction Type:Provider Instructions for Treatment How to Access Health Informa tion Online using Patient Portal and [employer]rd [employer] Apps Indication:Morbid obesity Start:31-Dec-2021 Instruction Type:Patient Education Patient Instructions Indication:BMI 40.0-44.9, adult Start:17-Oct-2021 Instruction Type:Provider Instructions for Treatment How to Access Health Informa tion Online using Patient Portal and [employer]rd [employer] Apps Indication:BMI 40.0-44.9, adult Start:17-Oct-2021 Instruction Type:Patient Education Patient Instructions Indication:BMI 40.0-44.9, adult Start:10-Oct-2021 Instruction Type:Provider Instructions for Treatment How to Access Health Informa tion Online using Patient Portal and [employer]rd [employer] Apps Indication:BMI 40.0-44.9, adult Start:10-Oct-2021 Instruction Type:Patient Education Patient Instructions Indication:Cellulitis Start:03-Oct-2021 Instruction Type:Provider Instructions for Treatment Patient Instructions Indication:BMI 40.0-44.9, adult Start:26-Sep-2021 Instruction Type:Provider Instructions for Treatment How to Access Health Informa tion Online using Patient Portal and [employer]rd [employer] Apps Indication:BMI 40.0-44.9, adult Start:26-Sep-2021 Instruction Type:Patient Education Patient Instructions Indication:Nonsmoker Start:10-Aug-2021 Instruction Type:Provider Instructions for Treatment How to Access Health Informa tion Online using Patient Portal and [employer]rd [employer] Apps Indication:Hypertension Start:10-Aug-2021 Instruction Type:Patient Education Patient Instructions Indication:BMI 40.0-44.9, adult Start:09-Aug-2021 Instruction Type:Provider Instructions for Treatment How to Access Health Informa tion Online using Patient Portal and [employer]rd [employer] Apps Indication:BMI 40.0-44.9, adult Start:09-Aug-2021 Instruction Type:Patient Education Patient Instructions Indication:Nonsmoker Start:28-May-2021 Instruction Type:Provider Instructions for Treatment How to Access Health Informa tion Online using Patient Portal and [employer]rd [employer] Apps Indication:Nonsmoker Start:28-May-2021 Instruction Type:Patient Education Patient Instructions Indication:BMI 40.0-44.9, adult Start:04-Apr-2021 Instruction Type:Provider Instructions for Treatment How to Access Health Informa tion Online using Patient Portal and [employer]rd [employer] Apps Indication:BMI 40.0-44.9, adult Start:04-Apr-2021 Instruction Type:Patient Education Patient Instructions Indication:BMI 40.0-44.9, adult Start:20-Mar-2021 Instruction Type:Provider Instructions for Treatment How to Access Health Informa tion Online using Patient Portal and [employer]rd [employer] Apps Indication:BMI 40.0-44.9, adult Start:20-Mar-2021 Instruction Type:Patient Education Patient Instructions Indication:Type 2 diabetes mellitus Start:13-Dec-2020 Instruction Type:Provider Instructions for Treatment How to Access Health Informa tion Online using Patient Portal and [employer]rd [employer] Apps Indication:Type 2 diabetes mellitus Start:13-Dec-2020 Instruction Type:Patient Education Patient Instructions Indication:Type 2 diabetes mellitus Start:15-Sep-2020 Instruction Type:Provider Instructions for Treatment How to Access Health Informa tion Online using Patient Portal and [employer]rd [employer] Apps Indication:Type 2 diabetes mellitus Start:15-Sep-2020 Instruction Type:Patient Education [facility]; [facility] Work Phone: Instructions* Name Dates Details Patient Instructions Indication:Nonsmoker Start:31-Jan-2023 Instruction Type:Provider Instructions for Treatment How to Access Health Informa tion Online using Patient Portal and [employer]rd [employer] Apps Indication:Nonsmoker Start:31-Jan-2023 Instruction Type:Patient Education Patient Instructions Indication:Nonsmoker Start:29-Aug-2022 Instruction Type:Provider Instructions for Treatment How to Access Health Informa tion Online using Patient Portal and [employer]rd [employer] Apps Indication:Nonsmoker Start:29-Aug-2022 Instruction Type:Patient Education Patient Instructions Indication:BMI 40.0-44.9, adult Start:25-Jul-2022 Instruction Type:Provider Instructions for Treatment How to Access Health Informa tion Online using Patient Portal and [employer]rd [employer] Apps Indication:BMI 40.0-44.9, adult Start:25-Jul-2022 Instruction Type:Patient Education Patient Instructions Indication:BMI 45.0-49.9, adult Start:10-Jul-2022 Instruction Type:Provider Instructions for Treatment How to Access Health Informa tion Online using Patient Portal and [employer]rd [employer] Apps Indication:BMI 45.0-49.9, adult Start:10-Jul-2022 Instruction Type:Patient Education Patient Instructions Indication:Nonsmoker Start:10-Jun-2022 Instruction Type:Provider Instructions for Treatment How to Access Health Informa tion Online using Patient Portal and [employer]rd [employer] Apps Indication:Nonsmoker Start:10-Jun-2022 Instruction Type:Patient Education Patient Instructions Indication:Nonsmoker Start:10-May-2022 Instruction Type:Provider Instructions for Treatment How to Access Health Informa tion Online using Patient Portal and [employer]rd [employer] Apps Indication:Nonsmoker Start:10-May-2022 Instruction Type:Patient Education Patient Instructions Indication:Nonsmoker Start:14-Mar-2022 Instruction Type:Provider Instructions for Treatment How to Access Health Informa tion Online using Patient Portal and [employer]rd [employer] Apps Indication:Nonsmoker Start:14-Mar-2022 Instruction Type:Patient Education Patient Instructions Indication:Nonsmoker Start:07-Mar-2022 Instruction Type:Provider Instructions for Treatment How to Access Health Informa tion Online using Patient Portal and [employer]rd [employer] Apps Indication:Nonsmoker Start:07-Mar-2022 Instruction Type:Patient Education Patient Instructions Indication:Morbid obesity Start:18-Feb-2022 Instruction Type:Provider Instructions for Treatment How to Access Health Informa tion Online using Patient Portal and [employer]rd [employer] Apps Indication:Morbid obesity Start:18-Feb-2022 Instruction Type:Patient Education Patient Instructions Indication:Morbid obesity Start:31-Dec-2021 Instruction Type:Provider Instructions for Treatment How to Access Health Informa tion Online using Patient Portal and [employer]rd [employer] Apps Indication:Morbid obesity Start:31-Dec-2021 Instruction Type:Patient Education Patient Instructions Indication:BMI 40.0-44.9, adult Start:17-Oct-2021 Instruction Type:Provider Instructions for Treatment How to Access Health Informa tion Online using Patient Portal and [employer]rd [employer] Apps Indication:BMI 40.0-44.9, adult Start:17-Oct-2021 Instruction Type:Patient Education Patient Instructions Indication:BMI 40.0-44.9, adult Start:10-Oct-2021 Instruction Type:Provider Instructions for Treatment How to Access Health Informa tion Online using Patient Portal and [employer]rd [employer] Apps Indication:BMI 40.0-44.9, adult Start:10-Oct-2021 Instruction Type:Patient Education Patient Instructions Indication:Cellulitis Start:03-Oct-2021 Instruction Type:Provider Instructions for Treatment Patient Instructions Indication:BMI 40.0-44.9, adult Start:26-Sep-2021 Instruction Type:Provider Instructions for Treatment How to Access Health Informa tion Online using Patient Portal and [employer]rd [employer] Apps Indication:BMI 40.0-44.9, adult Start:26-Sep-2021 Instruction Type:Patient Education Patient Instructions Indication:Nonsmoker Start:10-Aug-2021 Instruction Type:Provider Instructions for Treatment How to Access Health Informa tion Online using Patient Portal and [employer]rd [employer] Apps Indication:Hypertension Start:10-Aug-2021 Instruction Type:Patient Education Patient Instructions Indication:BMI 40.0-44.9, adult Start:09-Aug-2021 Instruction Type:Provider Instructions for Treatment How to Access Health Informa tion Online using Patient Portal and [employer]rd [employer] Apps Indication:BMI 40.0-44.9, adult Start:09-Aug-2021 Instruction Type:Patient Education Patient Instructions Indication:Nonsmoker Start:28-May-2021 Instruction Type:Provider Instructions for Treatment How to Access Health Informa tion Online using Patient Portal and [employer]rd [employer] Apps Indication:Nonsmoker Start:28-May-2021 Instruction Type:Patient Education Patient Instructions Indication:BMI 40.0-44.9, adult Start:04-Apr-2021 Instruction Type:Provider Instructions for Treatment How to Access Health Informa tion Online using Patient Portal and [employer]rd [employer] Apps Indication:BMI 40.0-44.9, adult Start:04-Apr-2021 Instruction Type:Patient Education Patient Instructions Indication:BMI 40.0-44.9, adult Start:20-Mar-2021 Instruction Type:Provider Instructions for Treatment How to Access Health Informa tion Online using Patient Portal and [employer]rd [employer] Apps Indication:BMI 40.0-44.9, adult Start:20-Mar-2021 Instruction Type:Patient Education Patient Instructions Indication:Type 2 diabetes mellitus Start:13-Dec-2020 Instruction Type:Provider Instructions for Treatment How to Access Health Informa tion Online using Patient Portal and [employer]rd [employer] Apps Indication:Type 2 diabetes mellitus Start:13-Dec-2020 Instruction Type:Patient Education Patient Instructions Indication:Type 2 diabetes mellitus Start:15-Sep-2020 Instruction Type:Provider Instructions for Treatment How to Access Health Informa tion Online using Patient Portal and [employer]rd [employer] Apps Indication:Type 2 diabetes mellitus Start:15-Sep-2020 Instruction Type:Patient Education [facility]; [facility] Work Phone: Instructions* Name Dates Details Patient Instructions Indication:Nonsmoker Start:31-Jan-2023 Instruction Type:Provider Instructions for Treatment How to Access Health Informa tion Online using Patient Portal and [employer]rd [employer] Apps Indication:Nonsmoker Start:31-Jan-2023 Instruction Type:Patient Education Patient Instructions Indication:Nonsmoker Start:29-Aug-2022 Instruction Type:Provider Instructions for Treatment How to Access Health Informa tion Online using Patient Portal and [employer]rd [employer] Apps Indication:Nonsmoker Start:29-Aug-2022 Instruction Type:Patient Education Patient Instructions Indication:BMI 40.0-44.9, adult Start:25-Jul-2022 Instruction Type:Provider Instructions for Treatment How to Access Health Informa tion Online using Patient Portal and [employer]rd [employer] Apps Indication:BMI 40.0-44.9, adult Start:25-Jul-2022 Instruction Type:Patient Education Patient Instructions Indication:BMI 45.0-49.9, adult Start:10-Jul-2022 Instruction Type:Provider Instructions for Treatment How to Access Health Informa tion Online using Patient Portal and [employer]rd [employer] Apps Indication:BMI 45.0-49.9, adult Start:10-Jul-2022 Instruction Type:Patient Education Patient Instructions Indication:Nonsmoker Start:10-Jun-2022 Instruction Type:Provider Instructions for Treatment How to Access Health Informa tion Online using Patient Portal and [employer]rd [employer] Apps Indication:Nonsmoker Start:10-Jun-2022 Instruction Type:Patient Education Patient Instructions Indication:Nonsmoker Start:10-May-2022 Instruction Type:Provider Instructions for Treatment How to Access Health Informa tion Online using Patient Portal and [employer]rd [employer] Apps Indication:Nonsmoker Start:10-May-2022 Instruction Type:Patient Education Patient Instructions Indication:Nonsmoker Start:14-Mar-2022 Instruction Type:Provider Instructions for Treatment How to Access Health Informa tion Online using Patient Portal and [employer]rd [employer] Apps Indication:Nonsmoker Start:14-Mar-2022 Instruction Type:Patient Education Patient Instructions Indication:Nonsmoker Start:07-Mar-2022 Instruction Type:Provider Instructions for Treatment How to Access Health Informa tion Online using Patient Portal and [employer]rd [employer] Apps Indication:Nonsmoker Start:07-Mar-2022 Instruction Type:Patient Education Patient Instructions Indication:Morbid obesity Start:18-Feb-2022 Instruction Type:Provider Instructions for Treatment How to Access Health Informa tion Online using Patient Portal and [employer]rd [employer] Apps Indication:Morbid obesity Start:18-Feb-2022 Instruction Type:Patient Education Patient Instructions Indication:Morbid obesity Start:31-Dec-2021 Instruction Type:Provider Instructions for Treatment How to Access Health Informa tion Online using Patient Portal and [employer]rd [employer] Apps Indication:Morbid obesity Start:31-Dec-2021 Instruction Type:Patient Education Patient Instructions Indication:BMI 40.0-44.9, adult Start:17-Oct-2021 Instruction Type:Provider Instructions for Treatment How to Access Health Informa tion Online using Patient Portal and [employer]rd [employer] Apps Indication:BMI 40.0-44.9, adult Start:17-Oct-2021 Instruction Type:Patient Education Patient Instructions Indication:BMI 40.0-44.9, adult Start:10-Oct-2021 Instruction Type:Provider Instructions for Treatment How to Access Health Informa tion Online using Patient Portal and [employer]rd [employer] Apps Indication:BMI 40.0-44.9, adult Start:10-Oct-2021 Instruction Type:Patient Education Patient Instructions Indication:Cellulitis Start:03-Oct-2021 Instruction Type:Provider Instructions for Treatment Patient Instructions Indication:BMI 40.0-44.9, adult Start:26-Sep-2021 Instruction Type:Provider Instructions for Treatment How to Access Health Informa tion Online using Patient Portal and [employer]rd [employer] Apps Indication:BMI 40.0-44.9, adult Start:26-Sep-2021 Instruction Type:Patient Education Patient Instructions Indication:Nonsmoker Start:10-Aug-2021 Instruction Type:Provider Instructions for Treatment How to Access Health Informa tion Online using Patient Portal and [employer]rd [employer] Apps Indication:Hypertension Start:10-Aug-2021 Instruction Type:Patient Education Patient Instructions Indication:BMI 40.0-44.9, adult Start:09-Aug-2021 Instruction Type:Provider Instructions for Treatment How to Access Health Informa tion Online using Patient Portal and [employer]rd [employer] Apps Indication:BMI 40.0-44.9, adult Start:09-Aug-2021 Instruction Type:Patient Education Patient Instructions Indication:Nonsmoker Start:28-May-2021 Instruction Type:Provider Instructions for Treatment How to Access Health Informa tion Online using Patient Portal and [employer]rd [employer] Apps Indication:Nonsmoker Start:28-May-2021 Instruction Type:Patient Education Patient Instructions Indication:BMI 40.0-44.9, adult Start:04-Apr-2021 Instruction Type:Provider Instructions for Treatment How to Access Health Informa tion Online using Patient Portal and [employer] Apps Indication:BMI 40.0-44.9, adult Start:04-Apr-2021 Instruction Type:Patient Education Patient Instructions Indication:BMI 40.0-44.9, adult Start:20-Mar-2021 Instruction Type:Provider Instructions for Treatment How to Access Health Informa tion Online using Patient Portal and [employer]rd [employer] Apps Indication:BMI 40.0-44.9, adult Start:20-Mar-2021 Instruction Type:Patient Education Patient Instructions Indication:Type 2 diabetes mellitus Start:13-Dec-2020 Instruction Type:Provider Instructions for Treatment How to Access Health Informa tion Online using Patient Portal and [employer] Apps Indication:Type 2 diabetes mellitus Start:13-Dec-2020 Instruction Type:Patient Education Patient Instructions Indication:Type 2 diabetes mellitus Start:15-Sep-2020 Instruction Type:Provider Instructions for Treatment How to Access Health Informa tion Online using Patient Portal and [employer]rd [employer] [employer] Apps Indication:Type 2 diabetes mellitus Start:15-Sep-2020 Instruction Type:Patient Education [facility]; [facility] Work Phone: reason for referral (narrative)No [facility]: Summary Purpose Family History No Family History Records FoundUnknown Family Member Name Dates Details Brother 1 Comments:colon cancer, PR, D M, lung cancer, Pancrease cancer Status:Active Father Comments:Dm, heart problems Status:Active Mother Comments:pace maker, HTN, Status:Active Sister 1 Comments:DM Status:Active Unknown Family Member Name Dates Details Brother 1 Comments:colon cancer, PR, D M, lung cancer, Pancrease cancer Status:Active Father Comments:Dm, heart problems Status:Active Mother Comments:pace maker, HTN, Status:Active Sister 1 Comments:DM Status:Active Unknown Family Member Name Dates Details Brother 1 Comments:colon cancer, PR, D M, lung cancer, Pancrease cancer Status:Active Father Comments:Dm, heart problems Status:Active Mother Comments:pace maker, HTN, Status:Active Sister 1 Comments:DM Status:Active Unknown Family Member Name Dates Details Brother 1 Comments:colon cancer, PR, D M, lung cancer, Pancrease cancer Status:Active Father Comments:Dm, heart problems Status:Active Mother Comments:pace maker, HTN, Status:Active Sister 1 Comments:DM Status:Active Unknown Family Member Name Dates Details Brother 1 Comments:colon cancer, PR, D M, lung cancer, Pancrease cancer Status:Active Father Comments:Dm, heart problems Status:Active Mother Comments:pace maker, HTN, Status:Active Sister 1 Comments:DM Status:Active Unknown Family Member Name Dates Details Brother 1 Comments:colon cancer, PR, D M, lung cancer, Pancrease cancer Status:Active Father Comments:Dm, heart problems Status:Active Mother Comments:pace maker, HTN, Status:Active Sister 1 Comments:DM Status:Active Unknown Family Member Name Dates Details Brother 1 Comments:colon cancer, PR, D M, lung cancer, Pancrease cancer Status:Active Father Comments:Dm, heart problems Status:Active Mother Comments:pace maker, HTN, Status:Active Sister 1 Comments:DM Status:Active Unknown Family Member Name Dates Details Brother 1 Comments:colon cancer, PR, D M, lung cancer, Pancrease cancer Status:Active Father Comments:Dm, heart problems Status:Active Mother Comments:pace maker, HTN, Status:Active Sister 1 Comments:DM Status:Active Unknown Family Member Name Dates Details Brother 1 Comments:colon cancer, PR, D M, lung cancer, Pancrease cancer Status:Active Father Comments:Dm, heart problems Status:Active Mother Comments:pace maker, HTN, Status:Active Sister 1 Comments:DM Status:Active Unknown Family Member Name Dates Details Brother 1 Comments:colon cancer, PR, D M, lung cancer, Pancrease cancer Status:Active Father Comments:Dm, heart problems Status:Active Mother Comments:pace maker, HTN, Status:Active Sister 1 Comments:DM Status:Active Unknown Family Member Name Dates Details Brother 1 Comments:colon cancer, PR, D M, lung cancer, Pancrease cancer Status:Active Father Comments:Dm, heart problems Status:Active Mother Comments:pace maker, HTN, Status:Active Sister 1 Comments:DM Status:Active Unknown Family Member Name Dates Details Brother 1 Comments:colon cancer, PR, D M, lung cancer, Pancrease cancer Status:Active Father Comments:Dm, heart problems Status:Active Mother Comments:pace maker, HTN, Status:Active Sister 1 Comments:DM Status:Active Unknown Family Member Name Dates Details Brother 1 Comments:colon cancer, PR, D M, lung cancer, Pancrease cancer Status:Active Father Comments:Dm, heart problems Status:Active Mother Comments:pace maker, HTN, Status:Active Sister 1 Comments:DM Status:Active Relationship Condition Age at Onset Recorded Date/T ousmane brother Diabetes mellitus Unknown Cardiac disease Unknown Hypertension Unknown Malignant neoplasm of colon Unknown mother Hypertension Unknown Unknown Family Member Name Dates Details Brother 1 Comments:colon cancer, PR, D M, lung cancer, Pancrease cancer Status:Active Father Comments:Dm, heart problems Status:Active Mother Comments:pace maker, HTN, Status:Active Sister 1 Comments:DM Status:Active Unknown Family Member Name Dates Details Brother 1 Comments:colon cancer, PR, D M, lung cancer, Pancrease cancer Status:Active Father Comments:Dm, heart problems Status:Active Mother Comments:pace maker, HTN, Status:Active Sister 1 Comments:DM Status:Active Unknown Family Member Name Dates Details Brother 1 Comments:colon cancer, PR, D M, lung cancer, Pancrease cancer Status:Active Father Comments:Dm, heart problems Status:Active Mother Comments:pace maker, HTN, Status:Active Sister 1 Comments:DM Status:Active Unknown Family Member Name Dates Details Brother 1 Comments:colon cancer, PR, D M, lung cancer, Pancrease cancer Status:Active Father Comments:Dm, heart problems Status:Active Mother Comments:pace maker, HTN, Status:Active Sister 1 Comments:DM Status:Active Unknown Family Member Name Dates Details Brother 1 Comments:colon cancer, PR, D M, lung cancer, Pancrease cancer Status:Active Father Comments:Dm, heart problems Status:Active Mother Comments:pace maker, HTN, Status:Active Sister 1 Comments:DM Status:Active Unknown Family Member Name Dates Details Brother 1 Comments:colon cancer, PR, D M, lung cancer, Pancrease cancer Status:Active [...] Name Dates Details Brother 1 Comments:colon cancer, PR, D M, lung cancer, Pancrease cancer Status:Active Father Comments:Dm, heart problems Status:Active Mother Comments:pace maker, HTN, Status:Active Sister 1 Comments:DM Status:Active Unknown Family Member Name Dates Details Brother 1 Comments:colon cancer, PR, D M, lung cancer, Pancrease cancer Status:Active [...] Name Dates Details Brother 1 Comments:colon cancer, PR, D M, lung cancer, Pancrease cancer Status:Active Father Comments:Dm, heart problems Status:Active Mother Comments:pace maker, HTN, Status:Active Sister 1 Comments:DM Status:Active Unknown Family Member Name Dates Details Brother 1 Comments:colon cancer, PR, D M, lung cancer, Pancrease cancer Status:Active Father Comments:Dm, heart problems Status:Active Mother Comments:pace maker, HTN, Status:Active Sister 1 Comments:DM Status:Active Unknown Family Member Name Dates Details Brother 1 Comments:colon cancer, PR, D M, lung cancer, Pancrease cancer Status:Active Father Comments:Dm, heart problems Status:Active Mother Comments:pace maker, HTN, Status:Active Sister 1 Comments:DM Status:Active Unknown Family Member Name Dates Details Brother 1 Comments:colon cancer, PR, D M, lung cancer, Pancrease cancer Status:Active Father Comments:Dm, heart problems Status:Active Mother Comments:pace maker, HTN, Status:Active Sister 1 Comments:DM Status:Active Unknown Family Member Name Dates Details Brother 1 Comments:colon cancer, PR, D M, lung cancer, Pancrease cancer Status:Active Father Comments:Dm, heart problems Status:Active Mother Comments:pace maker, HTN, Status:Active Sister 1 Comments:DM Status:Active Unknown Family Member Name Dates Details Brother 1 Comments:colon cancer, PR, D M, lung cancer, Pancrease cancer Status:Active Father Comments:Dm, heart problems Status:Active Mother Comments:pace maker, HTN, Status:Active Sister 1 Comments:DM Status:Active Unknown Family Member Name Dates Details Brother 1 Comments:colon cancer, PR, D M, lung cancer, Pancrease cancer Status:Active Father Comments:Dm, heart problems Status:Active Mother Comments:pace maker, HTN, Status:Active Sister 1 Comments:DM Status:Active Unknown Family Member Name Dates Details Brother 1 Comments:colon cancer, PR, D M, lung cancer, Pancrease cancer Status:Active [...] Name Dates Details Brother 1 Comments:colon cancer, PR, D M, lung cancer, Pancrease cancer Status:Active Father Comments:Dm, heart problems Status:Active Mother Comments:pace maker, HTN, Status:Active Sister 1 Comments:DM Status:Active Unknown Family Member Name Dates Details Brother 1 Comments:colon cancer, PR, D M, lung cancer, Pancrease cancer Status:Active Father Comments:Dm, heart problems Status:Active Mother Comments:pace maker, HTN, Status:Active Sister 1 Comments:DM Status:Active Unknown Family Member Name Dates Details Brother 1 Comments:colon cancer, PR, D M, lung cancer, Pancrease cancer Status:Active Father Comments:Dm, heart problems Status:Active Mother Comments:pace maker, HTN, Status:Active Sister 1 Comments:DM Status:Active Unknown Family Member Name Dates Details Brother 1 Comments:colon cancer, PR, D M, lung cancer, Pancrease cancer Status:Active Father Comments:Dm, heart problems Status:Active Mother Comments:pace maker, HTN, Status:Active Sister 1 Comments:DM Status:Active Unknown Family Member Name Dates Details Brother 1 Comments:colon cancer, PR, D M, lung cancer, Pancrease cancer Status:Active Father Comments:Dm, heart problems Status:Active Mother Comments:pace maker, HTN, Status:Active Sister 1 Comments:DM Status:Active Unknown Family Member Name Dates Details Brother 1 Comments:colon cancer, PR, D M, lung cancer, Pancrease cancer Status:Active Father Comments:Dm, heart problems Status:Active Mother Comments:pace maker, HTN, Status:Active Sister 1 Comments:DM Status:Active Unknown Family Member Name Dates Details Brother 1 Comments:colon cancer, PR, D M, lung cancer, Pancrease cancer Status:Active Father Comments:Dm, heart problems Status:Active Mother Comments:pace maker, HTN, Status:Active Sister 1 Comments:DM Status:Active Unknown Family Member Name Dates Details Brother 1 Comments:colon cancer, PR, D M, lung cancer, Pancrease cancer Status:Active Father Comments:Dm, heart problems Status:Active Mother Comments:pace maker, HTN, Status:Active Sister 1 Comments:DM Status:Active Unknown Family Member Name Dates Details Brother 1 Comments:colon cancer, PR, D M, lung cancer, Pancrease cancer Status:Active Father Comments:Dm, heart problems Status:Active Mother Comments:pace maker, HTN, Status:Active Sister 1 Comments:DM Status:Active Unknown Family Member Name Dates Details Brother 1 Comments:colon cancer, PR, D M, lung cancer, Pancrease cancer Status:Active Father Comments:Dm, heart problems Status:Active Mother Comments:pace maker, HTN, Status:Active Sister 1 Comments:DM Status:Active Unknown Family Member Name Dates Details Brother 1 Comments:colon cancer, PR, D M, lung cancer, Pancrease cancer Status:Active Father Comments:Dm, heart problems Status:Active Mother Comments:pace maker, HTN, Status:Active Sister 1 Comments:DM Status:Active Unknown Family Member Name Dates Details Brother 1 Comments:colon cancer, PR, D M, lung cancer, Pancrease cancer Status:Active Father Comments:Dm, heart problems Status:Active Mother Comments:pace maker, HTN, Status:Active Sister 1 Comments:DM Status:Active Unknown Family Member Name Dates Details Brother 1 Comments:colon cancer, PR, D M, lung cancer, Pancrease cancer Status:Active Father Comments:Dm, heart problems Status:Active Mother Comments:pace maker, HTN, Status:Active Sister 1 Comments:DM Status:Active Unknown Family Member Name Dates Details Brother 1 Comments:colon cancer, PR, D M, lung cancer, Pancrease cancer Status:Active Father Comments:Dm, heart problems Status:Active Mother Comments:pace maker, HTN, Status:Active Sister 1 Comments:DM Status:Active Unknown Family Member Name Dates Details Brother 1 Comments:colon cancer, PR, D M, lung cancer, Pancrease cancer Status:Active Father Comments:Dm, heart problems Status:Active Mother Comments:pace maker, HTN, Status:Active Sister 1 Comments:DM Status:Active Unknown Family Member Name Dates Details Brother 1 Comments:colon cancer, PR, D M, lung cancer, Pancrease cancer Status:Active Father Comments:Dm, heart problems Status:Active Mother Comments:pace maker, HTN, Status:Active Sister 1 Comments:DM Status:Active Unknown Family Member Name Dates Details Brother 1 Comments:colon cancer, PR, D M, lung cancer, Pancrease cancer Status:Active Father Comments:Dm, heart problems Status:Active Mother Comments:pace maker, HTN, Status:Active Sister 1 Comments:DM Status:Active Unknown Family Member Name Dates Details Brother 1 Comments:colon cancer, PR, D M, lung cancer, Pancrease cancer Status:Active Father Comments:Dm, heart problems Status:Active Mother Comments:pace maker, HTN, Status:Active Sister 1 Comments:DM Status:Active Unknown Family Member Name Dates Details Brother 1 Comments:colon cancer, PR, D M, lung cancer, Pancrease cancer Status:Active Father Comments:Dm, heart problems Status:Active Mother Comments:pace maker, HTN, Status:Active Sister 1 Comments:DM Status:Active Unknown Family Member Name Dates Details Brother 1 Comments:colon cancer, PR, D M, lung cancer, Pancrease cancer Status:Active Father Comments:Dm, heart problems Status:Active Mother Comments:pace maker, HTN, Status:Active Sister 1 Comments:DM Status:Active Unknown Family Member Name Dates Details Brother 1 Comments:colon cancer, PR, D M, lung cancer, Pancrease cancer Status:Active Father Comments:Dm, heart problems Status:Active Mother Comments:pace maker, HTN, Status:Active Sister 1 Comments:DM Status:Active Unknown Family Member Name Dates Details Brother 1 Comments:colon cancer, PR, D M, lung cancer, Pancrease cancer Status:Active Father Comments:Dm, heart problems Status:Active Mother Comments:pace maker, HTN, Status:Active Sister 1 Comments:DM Status:Active Unknown Family Member Name Dates Details Brother 1 Comments:colon cancer, PR, D M, lung cancer, Pancrease cancer Status:Active Father Comments:Dm, heart problems Status:Active Mother Comments:pace maker, HTN, Status:Active Sister 1 Comments:DM Status:Active Unknown Family Member Name Dates Details Brother 1 Comments:colon cancer, PR, D M, lung cancer, Pancrease cancer Status:Active Father Comments:Dm, heart problems Status:Active Mother Comments:pace maker, HTN, Status:Active Sister 1 Comments:DM Status:Active Unknown Family Member Name Dates Details Brother 1 Comments:colon cancer, PR, D M, lung cancer, Pancrease cancer Status:Active Father Comments:Dm, heart problems Status:Active Mother Comments:pace maker, HTN, Status:Active Sister 1 Comments:DM Status:Active Unknown Family Member Name Dates Details Brother 1 Comments:colon cancer, PR, D M, lung cancer, Pancrease cancer Status:Active Father Comments:Dm, heart problems Status:Active Mother Comments:pace maker, HTN, Status:Active Sister 1 Comments:DM Status:Active Advance Directives No Advanced Directives Records Found Advance Directive Response Recorded Date/ Time Advance Directives Yes August 27, 2017 8:50pm Living Will No May 12 12:29pm Power of Software Writer No May 12, 2020 12:29pm Advance Directive Response Recorded Date/ Time Name of Medical Power of Software Writer KYLIEA MANI NGUYEN AND KATTY CHI April 22, 2022 2:12pm Advance Directives Yes August 27, 2017 8:50pm Living Will Yes April 22 2:12pm Power of Software Writer Yes April 22 2:12pm Advance Directive Response Recorded Date/ Time Name of Medical Power of Software Writer KYLIEA MANI SOEN AND KATTY CHI April 22, 2022 2:12pm Name of Medical Power of Software Writer DAUGHTER May 14, 2022 10:08pm Advance Directives Yes August 27, 2017 8:50pm Living Will Yes May 14 10:08pm Power of Software Writer Yes May 14, 2022 10:08pm Advance Directive Response Recorded Date/ Time Name of Medical Power of Software Writer POA MANI PAUL AND KATTY CHI April 22, 2022 2:12pm Name of Medical Power of Software Writer paul & sanam Chi May 15, 2022 2:38am Name of Medical Power of Software Writer Katty Chi May 19, 2022 11:08pm Advance Directives Yes August 27, 2017 8:50pm Living Will Yes May 19 11:08pm Power of Software Writer Yes May 19, 2022 11:08pm Advance Directive Response Recorded Date/ Time Name of Medical Power of Software Writer POA MANI NGUYEN AND KATTY CHI April 22, 2022 2:12pm Name of Medical Power of Software Writer paul & sanam Chi May 15, 2022 2:38am Name of Medical Power of Software Writer Katty Chi and [employer] May 20, 2022 1:33am Advance Directives Yes August 27, 2017 8:50pm Living Will Yes May 20 1:33am Power of Software Writer Yes May 20, 2022 1:33am Advance Directive Response Recorded Date/ Time Name of Medical Power of Software Writer KYLIEA MANI NGUYEN AND KATTY CHI April 22, 2022 1:12pm Name of Medical Power of Software Writer paul & sanam Chi May 15, 2022 1:38am Name of Medical Power of Software Writer Katty Chi and [employer] May 20, 2022 12:33am Name of Medical Power of Software Writer Sanam and Paul Chi May 24, 2022 1:26pm Advance Directives Yes August 27, 2017 7:50pm Living Will Yes May 24 1:26pm Power of Software Writer Yes May 24, 2022 1:26pm Advance Directive Response Recorded Date/ Time Name of Medical Power of Software Writer JUAN NGUYEN AND KATTY CHI April 22, 2022 1:12pm Name of Medical Power of Software Writer paul & sanam Chi May 15, 2022 1:38am Name of Medical Power of Software Writer Katty Chi and [employer] May 20, 2022 12:33am Name of Medical Power of Software Writer Sanam and Paul Chi May 24, 2022 1:26pm Advance Directives Yes May 3:55pm Living Will Yes June 11, 3:55pm Power of Software Writer Yes June 11, 2022 3:55pm Advance Directive Response Recorded Date/ Time Name of Medical Power of Software Writer JUAN SOEN AND KATTY CHI April 22, 2022 1:12pm Name of Medical Power of Software Writer paul & sanam Chi May 15, 2022 1:38am Name of Medical Power of Software Writer Katty Chi and [employer] May 20, 2022 12:33am Name of Medical Power of Software Writer Sanam and Paul Chi May 24, 2022 1:26pm Advance Directives Yes May 3:55pm Living Will No July 02, 022 8:33am Power of Software Writer No July 02, 2022 8:33am Advance Directive Response Recorded Date/ Time Name of Medical Power of Software Writer JUAN SOEN AND KATTY CHI April 22, 2022 1:12pm Name of Medical Power of Software Writer paul & sanam Chi May 15, 2022 1:38am Name of Medical Power of Software Writer Katty Chi and [employer] May 20, 2022 12:33am Name of Medical Power of Software Writer Sanam and Paul Chi May 24, 2022 1:26pm Name of Medical Power of Software Writer paul chi July 02, 2022 12:59pm Name of Medical Power of Software Writer PAUL MIRELES AND SANAM CHI- SONS July 13, 2022 6:53pm Advance Directives Yes May 3:55pm Living Will Yes July 13 022 6:53pm Power of Software Writer Yes July 13, 2022 6:53pm Advance Directive Response Recorded Date/ Time Name of Medical Power of Software Writer JUAN SOEN AND KATTY CHI April 22, 2022 1:12pm Name of Medical Power of Software Writer paul & sanam Chi May 15, 2022 1:38am Name of Medical Power of Software Writer Katty Chi and [employer] May 20, 2022 12:33am Name of Medical Power of Software Writer Sanam and Paul Chi May 24, 2022 1:26pm Name of Medical Power of Software Writer paul chi July 02, 2022 12:59pm Name of Medical Power of Software Writer PAUL CHI AND SANAM CHI- SONS July 14, 2022 1:44am Advance Directives Yes May 3:55pm Living Will Yes July 14 022 1:44am Power of Software Writer Yes July 14, 2022 1:44am Advance Directive Response Recorded Date/ Time Name of Medical Power of Software Writer paul mireles July 02, 2022 1:59pm Name of Medical Power of Software Writer PAUL MIRELES AND SANAM MIRELES- MANI July 14, 2022 2:44am Advance Directives Yes May 4:55pm Living Will Yes July 14, 022 2:44am Power of Software Writer Yes July 14, 2022 2:44am Advance Directive Response Recorded Date/ Time Advance Directives Yes May 4:55pm Living Will Yes July 14 022 2:44am Power of Software Writer Yes July 14, 2022 2:44am Advance Directive Response Recorded Date/ Time Advance Directives Yes May 3:55pm Living Will Yes July 14, 022 1:44am Power of Software Writer Yes July 14, 2022 1:44am Advance Directive Response Recorded Date/ Time Name of Medical Power of Software Writer PAUL MIRELES AND SANAM MIRELES September 10, 2023 4:25pm Advance Directives Yes May 3:55pm Living Will Yes September 10, 024 4:25pm Power of Software Writer Yes September 10, 2023 4:25pm Advance Directive Response Recorded Date/ Time Name of Medical Power of Software Writer PAUL MIRELES AND SANAM MIRELES September 10, 2023 5:25pm Advance Directives Yes May 4:55pm Living Will Yes September 10, 024 5:25pm Power of Software Writer Yes September 10, 2023 5:25pm Advance Directive Response Recorded Date/ Time Name of Medical Power of Software Writer Katty Mireles and Paul Mireles- Mani May 20, 2022 12:33am Name of Medical Power of Software Writer Sanam and Paul Mireles May 24, 2022 1:26pm Name of Medical Power of Software Writer paul mireles July 02, 2022 12:59pm Name of Medical Power of Software Writer PAUL MIRELES AND SANAM MIRELES- MANI July 14, 2022 1:44am Advance Directives Yes May 3:55pm Living Will Yes July 14 022 1:44am Power of Software Writer Yes July 14, 2022 1:44am Advance Directive Response Recorded Date/ Time Living Will No March 12 7:24pm Do you have a Healthcare Power of Software Writer? No March 12, 2024 7:24pm Advance Directives Yes May 4:55pm Advance Directive Response Recorded Date/ Time Advance Directives Yes December 24 9:29am Living Will No March 12 7:24pm Do you have a Healthcare Power of Software Writer? No March 12, 2024 7:24pm Instructions Name Dates Details Patient Instructions Indication:Type 2 diabetes mellitus Start:15-Sep-2020 Instruction Type:Provider Instructions for Treatment How to Access Health Informa tion Online using Patient Portal and [employer] Apps Indication:Type 2 diabetes mellitus Start:15-Sep-2020 Instruction Type:Patient Education Name Dates Details Patient Instructions Indication:Type 2 diabetes mellitus Start:15-Sep-2020 Instruction Type:Provider Instructions for Treatment How to Access Health Informa tion Online using Patient Portal and [employer] Apps Indication:Type 2 diabetes mellitus Start:15-Sep-2020 Instruction [...] ADULT FTT ADULT ABDI BRADYCARDIA 2 ORDERING 'S Reason for Visit Breast cancer, right breast [...] FTT ADULT ABDI BRADYCARDIA 2 ORDERING COLLIN Reason for Visit Seroma, postoperativ e Seroma, [...] FOR CELLULITIS January 01, 2025 1 2:12pm Chief Complaint Admit Date SCREENING/ADRENEAL MASS October 07, 2024 1:37pm 2DRS/ 2 ORDERS October 12, 2024 8:4 0am L IAC STENOSIS November 09, 2024 12: 51pm EORDERS December 06, 2024 9:14a m 4 M FU December 16, 2024 1:29p m XRAY December 24, 2024 9:30a m CONCERN FOR CELLULITIS January 01, 2025 1 2:12pm CP PREOP January 12, 2025 6:04 am CP PREOP January 12, 2025 7:46 pm Reason for Visit Admit Date Chest pain December 16, 2024 1:29p m Edema December 16, 2024 1:29p m HLD (hyperlipidemia) December 16, 2024 1:29 pm (HFpEF) heart failure with preserved eje ction fraction December 16, 2024 1:29pm Hypertension December 16, 2024 1:29p m Left carotid artery stenosis December 16, 025 1:29pm ABDI (obstructive sleep apnea) December 16, 2024 1:29pm Left leg pain January 01, 2025 12:1 2pm Additional Source Comments INFORMATION SOURCE (unrecogn ized section and content) DATE CREATED AUTHOR 01/27/2018 Zheng Patel [facility] DATE CREATED AUTHOR AUTHOR'S ORGANIZ ATION 02/25/2019 [facility] DATE CREATED AUTHOR AUTHOR'S ORGANIZ ATION 08/17/2021 [facility] DATE CREATED AUTHOR AUTHOR'S ORGANIZ ATION 08/24/2022 [facility] DATE CREATED AUTHOR AUTHOR'S ORGANIZ ATION 01/18/2025 [facility] Goals (unrecognized section and content) Goals [...] Care Provider, Referr ing Provider Active Dr. Mihcael Michel MD Attending Provider Active Team Status: [...] Provider, Referr ing Provider Active Adeola W[place] PAPeter Attending Provider Active Team Status: Active Member [...] DO Primary Care Provider Active Dr. Venkat Chacha , DO Emergency Provider Active Dr. Willy [...] Stew Cruz MD Other Provider Active Adeola Monsivais PA, PA-C Attending Provider Active Team Status: Inactive Member Role Status Dates Dr. Martina Lal , DO Primary Care Provider, Referr ing Provider Active Rama Camara SECTION CHIEF, SECTION CHIEF-C Attending Provider Active Team Status: Active Member [...] Buzz Duran DPM Other Provider Active Adeola Monsivais PA, PA-C Attending Provider Active Team Status: Active Member Role Status Dates Dr. Martina Lal , DO Primary Care Provider, Referr ing Provider Active Dr. Willy Trimble MD Attending Provider Active Team Status: Inactive Member Role Status Dates Dr. Martina Lal DO Primary Care Provider, Referr ing Provider Active Susan Mayberry SECTION CHIEF, SECTION CHIEF-C Attending Provider Active Team Status: Active Member [...] Care Provider, Referr ing Provider Active Zelda Mcdaniles SECTION CHIEF, SECTION CHIEF-C Attending Provider Active Team Status: Active Member [...] Jose Maria Hudson MD Other Provider Active NASIR DalalM Other Provider Active Team Status: Inactive Member [...] Martina Lal DO Primary Care Provider Active Rama Camara SECTION CHIEF, SECTION CHIEF-C Attending Provider, Referring P opal Active Team Status: Inactive Member Role Status Dates Dr. Martina Lal , DO Primary Care Provider Active Dr. Anthony Davila MD Emergency Provider Active Dr. Wendy Mishra MD Admit Provider, Other Provider Active Dr. Loan Luu , DO Attending Provider Active Dr. Ryder De Los Santos MD Other Provider Active Team Status: Active Member Role Status Dates Dr. Martina Lal , DO Primary Care Provider, Other Provider Active ERIKA Harrison Attending Provider Active Team Status: Inactive Member Role Status Dates Dr. Martina Lal , DO Primary Care Provider, Other Provider Active ERIKA Harrison Attending Provider Active Team Status: Active Member [...] Dr. Martina Lal DO Primary Care Provider, Attend ing Provider Active Dr. Abbi Junior MD Other Provider Active Team Status: Inactive Member Role Status Dates Dr. Martina Lal DO Primary Care Provider, Referr ing Provider Active Dr. Cyrus Whipple MD Attending Provider Active Team Status: Inactive Member Role Status Dates Dr. Martina Lal DO Primary Care Provider, Other Provider Active Dr. Dena Kwok MD Attending Provider, Referri ng Provider Active Dr. Cyrus Whipple MD Other Provider Active Team Status: Inactive Member Role Status Dates Dr. Martina Lal DO Primary Care Provider Active Dr. Dena [...] DO Primary Care Provider Active Ovidio Gutierrez SECTION CHIEF, SECTION CHIEF-C Attending Provider Active Team Status: Inactive Member Role Status Dates Dr. Martina aLl DO Primary Care Provider Active Dr. Angely [...] Primary Care Provider Active Dr. Frank Balderas , DO Emergency Provider Active Team Status: Active Member Role Status Dates Dr. Martina Lal DO Primary Care Provider Active Dr. Willy Trimble MD Attending Provider Active PADMINI Matam[place]os Referring Provider Active Team Status: Inactive Member Role Status Dates Dr. Martina Lal DO Primary Care Provider Active Dr. Frank Balderas , DO Attending Provider, Emergency Provider Active Team [...] 17, 2024 End: August 17, 2024 Kimberly [place], [place] Attending Provider Active Start: August 17, [...] January 01, 2025 End: January 01, 2025 Team Status: Active Member Role/Relationship Status Dates Dr. Martina Lal DO Primary Care Provider Active Team Status: Inactive Member Role/Relationship Status Dates Dr. Martina Lal DO Primary Care Provider Active Start: October 07, 2024 End: October 07, 2024 Dr. Martina Lal DO Attending Provider Active Start: October 07, 2024 End: October 07, 2024 Dr. Martina Lal DO Referring Provider Active Start: October 07, 2024 End: October 07, 2024 Team Status: Inactive Member Role/Relationship Status Dates Dr. Martina Lal DO Primary [...] October 12, 2024 Team Status: Inactive Member Role/Relationship Status Dates Dr. Martina Lal DO Primary Care Provider Active Start: November 09, 2024 End: November 09, 2024 PADMINI [place] Attending Provider Active Star t: November 09, 2024 End: November 09, 2024 PADMINI [place] Referring Provider Active Star t: November 09, 2024 End: November 09, 2024 Team Status: Active Member Role/Relationship Status Dates Dr. Martina Lal DO Primary Care Provider Active Start: November 09, 2024 Dr. Willy Trimble MD Attending Provider Active S tart: November 09, 2024 PADMINI [place] Referring Provider Active Star t: November 09, 2024 Team Status: Inactive Member Role/Relationship Status Dates Dr. Martina Lal DO Primary Care Provider Active Start: December 06, 2024 End: December 06, 2024 Kimberly Hernandez PA, PA Attending Provider Active Start: December 06, 2024 End: December 06, 2024 Kimberly Hernandez PA, PA Referring Provider Active Start: December 06, 2024 End: December 06, 2024 Team Status: Inactive Member Role/Relationship Status Dates Dr. Martina Lal DO Primary Care Provider Active Start: December 16, 2024 End: December 16, 2024 Dr. Martina Lal DO Referring Provider Active Start: December 16, 2024 End: December 16, 2024 Kimberly Hernandez PA, PA Attending Provider Active Start: December 16, 2024 End: December 16, 2024 Team Status: Inactive Member Role/Relationship Status Dates Dr. Martina Lal DO Primary Care Provider Active Start: December 24, 2024 End: December 24, 2024 Dr. Brent Kelley MD Attending Provider Active S tart: December 24, 2024 End: December 24, 2024 Team Status: Inactive Member Role/Relationship Status Dates Dr. Matrina Lal DO Primary Care Provider Active Start: December 24, 2024 End: December 24, 2024 ERIKA Steen Attending Provider Active Start: December 24, 2024 End: December 24, 2024 ERIKA Steen Referring Provider Active Start: December 24, 2024 End: December 24, 2024 Team Status: Inactive Member Role/Relationship Status Dates Dr. Martina Lal DO Primary Care Provider Active Start: January 01, 2025 End: January 01, 2025 Dr. Martina Lal DO Referring Provider Active Start: January 01, 2025 End: January 01, 2025 PADMINI Lutz Attending Provider Active Start: January 01, 2025 End: January 01, 2025 Team Status: Inactive Member Role/Relationship Status Dates Dr. Martina Lal DO Primary Care Provider Active Start: January 12, 2025 End: January 12, 2025 Kimbelry Hernandez PA, PA Attending Provider Active Start: January 12, 2025 End: January 12, 2025 Kimberly Hernandez PA, PA Referring Provider Active Start: January 12, 2025 End: January 12, 2025 Team Status: Active Member Role/Relationship Status Dates Dr. Martina Lal DO Primary Care Provider Active Start: January 12, 2025 Kimberly Heranndez PA, PA Referring Provider Active Start: January 12, 2025 Kimberly Hernandez PA, PA Other Provider Active Start: January 12, 2025 Dr. Brent Kelley MD Attending Provider Active S tart: January 12, 2025 FOR RECORDS PERTAINING TO PATIENTS WHO [...] BE BASED ON THE PRIMARY CLINICAL RECORDS. [facility]. provides no warranty or guarantee of the accuracy or completeness of information in this document.
--- OUTSIDE RECORDS SUMMARY | 2025-01-23 08:34 | XMS RPT_ITS | CCD ---
Author Organization [facility] CliniSyid Care Team Providers Care Qa Tester Name Role Phone NALINI CELIO DPM Unavailable Unavailable NALINI CELIO DPM Unavailable Unavailable NALINICELIO DPM Unavailable Unavailable PHILIP KUMAR Unavailable Unavailable PROVIDER, UNKNOWN Unavailable Unavailable Michael Michel MD Unavailable [phone] Ciesa, Marquita Unavailable Turner Balderas Unavailable Unavailable Unavailable Unavailable Ciesa YAMILETH, Marquita Unavailable Turner Balderas LPN Unavailable Unavailable Unavailable Unavailable Martina Lal DO Unavailable Sanam Quesada Unavailable Jero Garcia Unavailable Norman DAVISON, Diane Unavailable Unavailable Mohamud NAUTICAL INSTRUMENT MECHANIC, Nelda Unavailable Unavailable Slarb NAUTICAL INSTRUMENT MECHANIC, Steffany Unavailable Unavailable Gravius JAVA DEVELOPER ANALYST, Keri Unavailable Unavailable Ciesa AUTO CLUTCH SPECIALIST, Marquita Unavailable Dr. Martina Lla Primary Care Provider [phone] Dr. Martina Lal Referring Provider [phone] Dr. Michael Michel Attending Provider Martina Lal DO Unavailable Tamra Francis Unavailable mitzy Stovall Unavailable Unavailable Dr. Martina Lal Primary Care Provider [phone] Dr. Martina Lal Referring Provider Arslan WINSLOW, ERIKA Ndiaye Attending Provider Dr. Martina Lal Primary Care Provider [phone] Dr. Martina Lal Referring Provider Dr. Michael Michel Attending Provider Sarabjit Cyrus Unavailable Michael Michel MD Unavailable Cooper Kwok Unavailable Dr. Michael Michel Referring Provider Dr. Michael Michel Other Provider Michael Amado Unavailable Dr. Angely Carrizales Attending Provider Dr. Michael Michel Referring Provider YAW Flores Attending Provider Dr. Venkat Burnham Emergency Provider 1([facility])[phone] Dr. Felice Waller Attending Provider Dr. Willy [...] Attending Provider Dr. Venkat Burnham Emergency Provider 1([facility])[phone] Dr. Felice Waller Attending Provider Dr. Willy [...] Dr. Buzz Duran Other Provider Jax WINSLOW, HEAD OF SALES AND MARKETINGPeter Ontiveros Attending Provider Dr. Willy Trimble Attending Provider Manchak JAVA DEVELOPER ANALYST, Katharina Unavailable Unavailable Daya HANK, Kayela Unavailable Unavailable Dr. Socorro Ivan Attending Provider Shawanda HEAD OF SALES AND MARKETING, HEAD OF SALES AND MARKETING-C Susan Attending Provider MD Zeferino Kingsley Emergency [...] Provider Dr. Buzz Duran Other Provider Jax HEAD OF SALES AND MARKETING, HEAD OF SALES AND MARKETING-C Rama Attending Provider Dr. Willy Trimble Attending Provider Dr. Socorro Ivan Attending Provider Shawanda HEAD OF SALES AND MARKETING, HEAD OF SALES AND MARKETING-C Susan Attending Provider MD Zeferino Kingsley Emergency [...] Ryder De Los Santos Other Provider Arslan HEAD OF SALES AND MARKETING, HEAD OF SALES AND MARKETINGJorgeC Zelda Attending Provider Dr. Martina Lal Primary [...] Provider Dr. Martina Lal Referring Provider Jax HEAD OF SALES AND MARKETING, HEAD OF SALES AND MARKETING-C Rama Attending Provider Dr. Anthony Davila Emergency Provider Dr. Wendy Mishra Admit Provider Dr. Wendy Mishra Attending Provider Dr. Wendy Mishra Other Provider Dr. Ryder De Los Santos Attending Provider Dr. Ryder De Los Santos Other Provider Dr. Loan Luu Attending Provider Dr. Loan Luu Other Provider Dr. Wendy Mishra Referring Provider Arslan HEAD OF SALES AND MARKETING, HEAD OF SALES AND MARKETING-C Zelda Attending Provider Dr. Cyrus Whipple Attending Provider Dr. Martina Lal Primary Care Provider Dr. Martina Lal Referring Provider Jax HEAD OF SALES AND MARKETING, HEAD OF SALES AND MARKETING-C Rama Attending Provider Arslan HEAD OF SALES AND MARKETING, HEAD OF SALES AND MARKETING-C Zelda Attending Provider Dr. Martina Lal Primary Care Provider Dr. Martina Lal Referring Provider Dr. Tk Varela Attending Provider Fast DO, Emily A Unavailable Dr. Angely Carrizales Attending Provider Dr. Willy Trimble Attending Provider Roof HEAD OF SALES AND MARKETING, HEAD OF SALES AND MARKETING-C Ovidio Hadley Attending Provider Dr. Martina Lal Primary Care Provider Dr. Martina Lal Referring Provider Dr. Angely Carrizales Referring Provider PADMINI Suarez Attending Provider Dr. Martina Lal Primary Care Provider [phone] Dr. Martina Lal Referring Provider PADMINI Suarez Attending Provider 1([facility])-[phone] Arslan HEAD OF SALES AND MARKETING, HEAD OF SALES AND MARKETING-Jonn Ndiaye Attending Provider Dr. Martina Lal Primary Care Provider Dr. Martina Lal Referring Provider Dr. Willy Trimble Attending Provider 1([facility])-[phone] PADMINI Suarez Referring Provider 1([facility])-[phone] Martina Lal Primary Care Provider 1([facility] )-3434 Dr. Willy Trimble Attending Provider 1([facility])-[phone] PADMINI Suarez Referring Provider 1([facility])-[phone] Martina Lal Referring Provider 1([facility])[phone] Dr. Angely Carrizales Attending Provider 1([facility])[phone] Martina Lal Primary Care Provider 1([facility] )-[phone] Dr. Lisa Mariscal Emergency Provider 1([facility])[phone] Willy Booth Admit Provider Dr. Willy Booth Other Provider Dr. Meng Martinez Other Provider 1([facility])[phone] Dena Kwok Other Provider 1([facility])[phone] Dr. Stew Cruz Attending Provider 1([facility])[phone] Dr. Stew Cruz Other Provider 1([facility])[phone] Meng Martinez Attending Provider 1([facility])[phone] Yodit [place], PA-C Adeola Attending Provider Dr. Martina Lal Referring Provider 1([facility])[phone] Dr. Loan Luu Attending Provider Dr. Loan Luu Other Provider Dr. Cyrus Whipple Attending Provider 1([facility])[phone] Martina Lal DO Primary Care Provider [phone] Tito LAINEZ, Dr. Barboza Attending Provider Tito LAINEZ, Dr. Barboza Referring Provider Lukasz PORTILLO, Dr. Mack Referring Provider [phone] Atilio LAINEZ, Dr. Aguilera Attending Provider [phone] Kimberly Hunt Attending Provider Lukasz PORTILLO, Dr. Mack Attending Provider [phone] Rissa LAINEZ, Dr. Fernandes Other Provider Lukasz DO, Dr. Mack Primary Care Provider Louise West Attending Provider 1([facility])[phone] Louise West Referring Provider 1([facility])[phone] Lukasz PORTILLO, Dr. Mack Primary Care Provider [phone] Lukasz PORTILLO, Dr. Mack Referring Provider 1([facility] )4 Atilio LAINEZ, Dr. Aguilera Attending Provider 1([facility])[phone] Kimberly Hunt Attending Provider Kimberly Hunt Referring Provider [phone] Warren LAINEZ, Dr. Kennedy Attending Provider Rajiv HEAD OF SALES AND MARKETING-CMackenzie Attending Provider Rajiv HEAD OF SALES AND MARKETING-CMackenzie Referring Provider Neftaly Goldsmith Attending Provider Kimberly [...] Primary Care Unavailable Atilio, Willy Referring Unavailable [place], Willy Attending Unavailable Lukasz, Martina Primary Care Unavailable Lukasz, Martina Referring Unavailable Lukasz, Martina Primary Care Unavailable Kimberly Hunt Attending Unavail able [place], Willy Referring Unavailable [place], Willy Attending Unavailable Lukasz, Martina Primary Care [...] Primary Care Unavailable Lukasz, Martina Referring Unavailable Ulkasz, Martina Attending Unavailable Basali, Ayman Referring Unavailable Basali, Ayman Attending Unavailable Lukasz, Martina Primary Care Unavailable Rissa, Jayaprakas Referring Unavailable Rissa, Jayaprakas Attending Unavailable Lukasz, Martina Primary Care Unavailable Lukasz, Martina Primary Care Unavailable Suarez, Louise Referring Unavailable Suarez, Louise Attending Unavailable Lukasz, Martina Referring Unavailable Arslan HEAD OF SALES AND MARKETING, Zelda Attending Unavailable Lukasz, Martina Primary Care [...] upset (2 sources) Meperidine Drug Allergy 7 [facility] Work Phone: (20 sources) levoFLOXacin; [...] HCl] Drug Allergy 0 mental status change [facility] (17 sources) cloNIDine Drug Allergy 3 Topical Reaction to PATCH ONLY, pills ok [facility] (1 source) cloNIDine Drug Allergy 5 [facility] Repository (1 source) Morphine Drug Allergy 5 [facility]ository Medications Current Medications Medication Drug [...] Start: 03-03-2023 take 1 capsule by mo [facility] once daily Udfcfrhhhnhm-Tqsgmh-Umvzcbbz Active 1 CA P PO DAILY March [...] PO DAILY November 20, 2023 12:00am [facility] [place] [facility] (20 sources) Start: 05-22-2020 Cardio Platinu m Healthy Active PO DAILY May 22, 2020 3:00pm Start: 05-22-2020 End: 05-23-2022 [facility] [place] [facility] Disc ontinued 1 NMA PO DAILY 0 May 22, 2020 1:00am May 23, 2022 3:05pm SUPPLEMENT Start: 05-22-2020 End: 05-23-2022 [facility] [place] [facility] Disc ontinued 1 NMA PO DAILY May 22, 2020 1:00am May 23, 2022 3:05pm Start: 05-22-2020 End: 05-23-2022 take 1 capsule by mouth once daily [facility] [place] Discontinued 1 CAP PO DAILY May 22, 2020 12:00am May 23, 2022 2:05pm Start: 05-22-2020 End: 05-23-2022 take 1 capsule by mouth once daily [facility] [place] Discontinued 1 CAP PO DAILY May 22, 2020 1:00am May 23, 2022 3:05pm Start: 05-22-2020 take 1 capsule by [facility] once daily Cardio [place] Healthy Active 1 CAP PO DAILY May [...] mouth once daily Vitamin D3 250 MCG (48403 UT) Oral Capsule 1 (one) Capsule daily as directed for 0 days Quantity: 30 {Capsule} Refills: 0 Ordered: 04-Apr-2021 Nelda Mallory LPN Start : 15-Sep-2020 End : 04-Apr-2021 Inactive take 1 capsule by [facility] once daily Vitamin D3 50 MCG (2000 [...] 4 {Tablet} Refills: 0 Ordered: 10-Oct-2021 Turner Baledras LPN Start : 26-Sep-2021 End : 10-Oct-2021 [...] please fill for 90 d ay supply [place]-3 Fatty Acids-Fish Oil (20 sources) Start: 03-03-2023 take 1 capsule by mouth once daily [place]-3 Fatty Acids-Fish Oil Active 1 CAP PO DAILY March 03, 2023 12:40pm Start: 03-03-2023 take 1 capsule by mo [facility] once daily [place]-3 Fatty Acids-Fish Oil Active 1 CAP PO DAILY March 03, 2023 1:40pm Start: 07-29-2014 [place]-3 Fatty Acids-Fish Oil Active 1 EACH PO DAILY July 29, 2014 7:51pm Start: 07-29-2014 End: 03-03-2023 [place]-3 Fatty Acids-Fish Oil Discontinued 1 EACH PO DAILY July 29, 2014 12:00am March 03, 2023 12:44pm Start: 07-29-2014 End: 03-03-2023 [place]-3 Fatty Acids-Fish Oil Discontinued 1 EACH PO DAILY July 29, 2014 1:00am March 03, 2023 1:44pm Start: 07-29-2014 [place]-3 Fatty Acids-Fish Oil Active 1 EACH PO DAILY July 29, 2014 12:00am Start: 07-29-2014 [place]-3 Fatty Acids-Fish Oil Active 1 EACH PO [...] Chlorid e (Deep Sea Nasal) 0.65 % Aerosol,Colton Active 2 SPRAY NASAL 3 TIMES DAILY [...] YLATE 5 MG TABS daily AMLODIPINE BESYLATE [id number] Michael Michel MD Gbakrcnpgrcv-Nydnvl-Zougwgwp 187.5-150-79.2 mg capsule (8 sources) Start: 03-03-2023 End: 08-17-2024 Pjdsssvbggew-Wjtvgm-Nutogphy 187.5-150-79.2 mg capsule Discontinued 1 NMA PO [...] S 1 tablet every other day ASPIRIN [id number] Michael Michel MD Start: 07-29-2014 End: 11-20-2023 [...] ALCIUM 10 MG TABS daily ATORVASTATIN CALCIUM [id number] Michael Michel MD azithromycin 250 mg oral [...] VITAMIN D3 TABS CALCIUM CARB-CHOLECALCIFE ROL TABS [id number] Michael Michel MD calcium carbonate 1250 mg [...] Active Calcium- Vitamin D 200U Active [facility] [place] (8 sources) Start: 04-28-2024 End: 08-17-2024 [facility] [place] Discontinued PO April 28, 2024 12:00am August [...] every twenty-four hours CINNAMON CAPS CINNAMON CAPS [id number] Michael Michel MD ciprofloxacin 500 mg oral [...] 2023 11:06am Start: 03-03-2023 End: 07-08-2023 Clonidine (Qfkkrzju-Pbf-8) 0 .1 mg/24 hr patch weekly Discontinued 1 NMA TD EVERY WEEK 4 6 [place] 14th, 2023 12:00am July 08, 2023 12:09pm Start: 03-03-2023 End: 07-08-2023 Clonidine (Anctqjtr-Cwk-5) 0 .1 mg/24 hr patch weekly Discontinued [...] ARTERY CLEANSE Active COMPOUNDED PRESCRIPTION CARD IO [facility] (20 sources) COMPOUNDED PRESC RIPTION CARDIO [facility] Inactive COMPOUNDED PRESC RIPTION CARDIO [facility] Active Curcumin-Phosphatidylcholine 500 mg capsule [...] 20 mg/ml oral solution (20 sources) Uncompetitive O-tigyxm-D-aspartate Receptor Antagonist, Sigma-1 Agonist Start: 10-01-19 End: [...] Quantity: 30 {Tablet} Refills: 3 Ordered: 10-May-2022 Keaton Alondra MCKINNEY Start : 10-May-2022 Active Start: [...] HYDROCHLOROTHI AZIDE 12.5 MG TABS daily HYDROCHLOROTHIAZIDE [id number] Michael Michel MD Start: 07-29-2014 End: 07-31-2014 [...] 01, 2024 9:50am October 04, 2024 3:53pm [place]-3 (20 sources) [place]-3 Inactive [place]-3 Active [place]-3 Fatty Acids-Fish Oil 1 EACH capsule (8 sources) Start: 07-29-2014 End: 03-03-2023 [place]-3 Fatty Acids-Fish Oil 1 EACH capsule Discontinued 1 NMA PO DAILY July 29, 2014 1:00am March 03, 2023 1:44pm SUPPLEMENT Start: 07-29-2014 End: 03-03-2023 [place]-3 Fatty Acids-Fish Oil 1 EACH capsule Discontinued 1 NMA PO DAILY July 29, 2014 1:00am March 03, 2023 1:44pm [place]-3 Fatty Acids-Fish Oil 300-1,000 mg capsule (8 sources) Start: 03-03-2023 End: 08-17-2024 [place]-3 Fatty Acids-Fish Oil 300-1,000 mg capsule Discontinued 1 NMA PO DAILY March 03, 2023 1:40pm August 17, 2024 1:57pm SUPPLEMENT Start: 03-03-2023 End: 08-17-2024 [place]-3 Fatty Acids-Fish Oil 300-1,000 mg capsule Discontinued [...] December 02, 2022 1:54pm polyethylene glycol 3350 13381 mg powder for oral solution (20 sources) [...] By: Brent Kelley on 01-12-2025 Study report [facility] [address] [place] [address] MR#: [id number] Acct: [id number] Name: DEBBIE MIRELES Rep #: [id number] : 1935 89 From: Brent Kelley MD [...] ~ Date Dictated: 01/12/251945 Date Transcribed: 01/12/251945 High Pressure Cleaner: CO Signed [facility] Work Phone: Stress Reporton 01-12-2025 Stress Report [facility] [address] [place] [address] MR#: [id number] Acct: [id number] Name: DEBBIE MIRELES Rep #: [id number] : 1935 89 From: Brent Kelley MD [...] Javier Date Dictated: 01/12/251945 Date Transcribed: 01/12/251945 High Pressure Cleaner: CO Signed Normal [facility] Microalb:Creat Ratio,Random URon 01-06-2025 MALB:CREAT 40.5 mg/g CRE Normal [facility] Comment on above: Result Comment: AMENDED REPORT 01/06/25 0800 MALB:CREAT previously reported as: 404.6 mg/g CRE Performed By: #### L 501.4700, L501.9520, L501.0900, L506.1001, L501.2300, L500.4050, L100.0100, L502.0250, L500.4100, L400.2010 ####[facility] [address] [place], [address] Urgent Care Visit Reporton 0 01-01-2025 Urgent Care Visit Report [facility] [address] , [address] [place], [place] [address] OFFICE VISIT Date of Service: 01/01/25 MR#: [id number] Acct: [id number] Name: DEBBIE MIRELES Rep #: [id number] : 1935 Provider: PADMINI Lutz Age/Sex: 89/F Location: [facility] Status: Signed Intake Vital Signs 12/24/24 09:29 01/01/25 12:21 Height 5 ft 2 in BP 144/64 H Blood Pressure Location Lt brachial Position Sitting Respiration 17 Pulse 85 Pulse Source NIBP Temp 98.2 F Temp Source Oral Pulse Oximetry (%) 96 Oxygen Delivery Method room air Intake Visit Reasons: CONCERN FOR CELLULITIS Chief Complaint: left lower leg pain Sales Support Technician Required: No Is patient in pain?: Yes [...] to see due to location of pain. [facility] Medical History Obesity Left carotid artery [...] healthy appear (more content not included)... Normal [facility] Absolute lymphocyte countOrd ered By: Mackenzie Vance on 12-24-2024 Lymphocytes Auto (Unsp spec) [#/Vol] 1.58 10*3/uL 0.83-4.51 [facility] Absolute neutrophil countOrd ered By: Mackenzie Vance on 12-24-2024 Neutrophils (Bld) [#/Vol] 11.7 10*3/uL High 2.0-7.7 [facility] Anion gap in Serum or Plasma Ordered By: Mackenzie Vance on 12-24-2024 Anion gap [Moles/Vol] 11 mmol/L 5-15 [facility] Automated lymphocyte count a s percentage of total leukocytesOrdered By: Mackenzie Vance on 12-24-2024 Lymphocytes/100 WBC Auto (Unsp spec) 10.4 % Low 19-41 [facility] BUN/creatinine ratioOrdered By: Mackenzie Vance on 12-24-2024 Urea nitrogen/Creatinine [Mass ratio] 19.0 mg/mg 10-20 [facility] Basophil percentageOrdered B y: Mackenzie Vance on 12-24-2024 Basophils/100 WBC (Bld) 0.5 % 0-1 [facility] [place] Bilirubin, totalOrdered By: Mackenzie Vance on 12-24-2024 Bilirubin [Mass/Vol] 1.23 mg/dL 0.00-1.30 [facility] CBC W/Diff, Automatedon Absolute Lymph 1.58 X10 3/uL Normal 0.83-4.51 [facility] Comment on above: Performed By: #### L 500.4050, L100.0100 ####[facility] [address] [place], [address] Absolute Neut 11.7 X10 3/uL High 2.0-7.7 [facility] Comment on above: Performed By: #### L 500.4050, L100.0100 ####[facility] [address] [place], [address] Basophils/100 WBC (Bld) 0.5 % Normal 0-1 [facility] [place] Comment on above: Performed By: #### L 500.4050, L100.0100 ####[facility] [address] [place], [address] Eosinophils/100 WBC (Bld) 1.6 % Normal 0-5 [facility] Comment on above: Performed By: #### L 500.4050, L100.0100 ####[facility] [address] [place], [address] Erythrocyte distribution width (RBC) [Ratio] 13.1 % Normal 11.6-14.6 [facility] Comment on above: Performed By: #### L 500.4050, L100.0100 ####[facility] [address] [place], [address] Hematocrit (Bld) [Volume fraction] 38.0 % Normal 37-47 [facility] Comment on above: Performed By: #### L 500.4050, L100.0100 ####[facility] [address] [place], [address] Hemoglobin (Bld) [Mass/Vol] 13.0 g/dL Normal 12.0-15.0 [facility] Comment on above: Performed By: #### L 500.4050, L100.0100 ####[facility] [address] [place], [address] IG% 0.300 Normal 0.0-0.9 [facility] Comment on above: Result Comment: IG% - Immature Granulocytes (promyelocytes, myelocytes and metamyelocytes) > 1% indicates that a LEFT SHIFT is Present. Performed By: #### L 500.4050, L100.0100 ####[facility] [address] [place], [address] Lymphocytes/100 WBC (Bld) 10.4 % Low 19-41 [facility] Comment on above: Performed By: #### L 500.4050, L100.0100 ####[facility] [address] [place], [address] MCH (RBC) [Entitic mass] 30.2 pg Normal 27.0-32.0 [facility] Comment on above: Performed By: #### L 500.4050, L100.0100 ####[facility] [address] [place], [address] MCHC (RBC) [Mass/Vol] 34.2 g/dL Normal 32-36 [facility] Comment on above: Performed By: #### L 500.4050, L100.0100 ####[facility] [address] [place], [address] MCV (RBC) [Entitic vol] 88.2 fL Normal 81-99 [facility] Comment on above: Performed By: #### L 500.4050, L100.0100 ####[facility] [address] [place], [address] Monocytes/100 WBC (Bld) 10.0 % Normal 0-10 [facility] Comment on above: Performed By: #### L 500.4050, L100.0100 ####[facility] [address] [place], [address] Neutrophils/100 WBC (Bld) 77.2 % High 47-70 [facility] Comment on above: Performed By: #### L 500.4050, L100.0100 ####[facility] [address] [place], [address] Nucleated RBC (Bld) [#/Vol] 0 10*3/uL Normal 0-5 [facility] Comment on above: Performed By: #### L 500.4050, L100.0100 ####[facility] [address] [place], [address] Platelet mean volume (Bld) [Entitic vol] 10.1 fL Normal 6.2-12.0 [facility] Comment on above: Performed By: #### L 500.4050, L100.0100 ####[facility] [address] [place], [address] Platelets (Bld) [#/Vol] 248 10*3/uL Normal 150-450 [facility] Comment on above: Performed By: #### L 500.4050, L100.0100 ####[facility] [address] [place], [address] RBC (Bld) [#/Vol] 4.31 10*6/uL Normal 4.2-5.4 [facility] Comment on above: Performed By: #### L 500.4050, L100.0100 ####[facility] [address] [place], [address] RDW SD 42.7 fl Normal 35.1-43.9 [facility] Comment on above: Performed By: #### L 500.4050, L100.0100 ####[facility] [address] [place], [address] WBC (Bld) [#/Vol] 15.1 10*3/uL High 4.4-11.0 [facility] Comment on above: Performed By: #### L 500.4050, L100.0100 ####[facility] [address] [place], [address] Carbon dioxide, total [Moles /volume] in Central venous bloodOrdered By: Mackenzie Vance on 12-24-2024 CO2 [Moles/Vol] 23.1 mmol/L 21.0-32.0 [facility] Chest PA and Lateralon 12-24 Chest PA and Lateral [facility] Imaging Services [address] [place] [address] Chest PA and Lateral MR#: [id number] Acct: [id number] Name: DEBBIE MIRELES Jana Rep #: [id number] : 1935 F 89 From: Floyd Chi PCP: Dr. Martina Lal, Status: DEP AMB Study: Chest PA and Lateral Date of Exam: 12/24/24 Exam# [id number] Ordering Dr: Mackenzie Vance HEAD OF SALES AND MARKETING-C PROCEDURE: CHEST PA AND LATERAL 12/24/2024 REASON [...] acute osseous process is seen. Reading Location: [address] CC: HEAD OF SALES AND MARKETING-C Mackenzie Vance; Dr. Martina Lal DO High Pressure Cleaner: Signed Normal [facility] Chloride assayOrdered By: Eliana Vance on 12-24-2024 Chloride [Moles/Vol] 100 mmol/L 98-108 [facility] Comprehensive Metabolic Prof ilon 12-24-2024 Albumin [Mass/Vol] 3.6 g/dL Normal 3.4-4.8 [facility] Comment on above: Performed By: #### L 500.4050, L100.0100 ####[facility] [address] [place], [address] Albumin/Globulin [Mass ratio] 1.0 {ratio} Normal 0.9-2.4 [facility] Comment on above: Performed By: #### L 500.4050, L100.0100 ####[facility] [address] [place], [address] ALK PHOS 80 U/L Normal 35-104 [facility] Comment on above: Performed By: #### L 500.4050, L100.0100 ####[facility] [address] [place], [address] ALT [Catalytic activity/Vol] 16 U/L Normal <=34 [facility] Comment on above: Performed By: #### L 500.4050, L100.0100 ####[facility] [address] [place], [address] AST [Catalytic activity/Vol] 18 U/L Normal <=31 [facility] Comment on above: Performed By: #### L 500.4050, L100.0100 ####[facility] [address] [place], [address] Bilirubin [Mass/Vol] 1.23 mg/dL Normal 0.00-1.30 [facility] Comment on above: Performed By: #### L 500.4050, L100.0100 ####[facility] [address] [place], [address] BUN/CRE 19.0 RATIO Normal 10-20 [facility] Comment on above: Performed By: #### L 500.4050, L100.0100 ####[facility] [address] [place], [address] Calcium [Mass/Vol] 10.0 mg/dL Normal 7.6-11.0 [facility] Comment on above: Performed By: #### L 500.4050, L100.0100 ####[facility] [address] [place], [address] Chloride [Moles/Vol] 100 mmol/L Normal 98-108 [facility] Comment on above: Performed By: #### L 500.4050, L100.0100 ####[facility] [address] [place], [address] CO2 [Moles/Vol] 23.1 mmol/L Normal 21.0-32.0 [facility] Comment on above: Performed By: #### L 500.4050, L100.0100 ####[facility] [address] [place], [address] Creatinine [Mass/Vol] 1.56 mg/dL High 0.70-1.20 [facility] Comment on above: Performed By: #### L 500.4050, L100.0100 ####[facility] [address] [place], [address] GAP 11 Normal 5-15 [facility] Comment on above: Performed By: #### L 500.4050, L100.0100 ####[facility] [address] [place], [address] GFR/1.73 sq M.predicted among non-blacks MDRD (S/P/Bld) [Vol rate/Area] 32 mL/min/{1.73_m2} Low >60 [facility] Comment on above: Result Comment: mL/m in/1.73m2 CKD-EPI Creatinine Equation (2020) Performed By: #### L 500.4050, L100.0100 ####[facility] [address] [place], [address] Globulin (S) [Mass/Vol] 3.5 g/dL Normal 2.2-4.2 [facility] Comment on above: Performed By: #### L 500.4050, L100.0100 ####[facility] [address] [place], [address] Glucose [Mass/Vol] 178 mg/dL High 70-99 [facility] Comment on above: Performed By: #### L 500.4050, L100.0100 ####[facility] [address] [place], [address] Potassium [Moles/Vol] 4.4 mmol/L Normal 3.3-5.1 [facility] Comment on above: Performed By: #### L 500.4050, L100.0100 ####[facility] [address] [place], [address] Sodium [Moles/Vol] 135 mmol/L Normal 133-145 [facility] Comment on above: Performed By: #### L 500.4050, L100.0100 ####[facility] [address] [place], [address] T PROT 7.1 g/dL Normal 5.9-8.4 [facility] Comment on above: Performed By: #### L 500.4050, L100.0100 ####[facility] [address] [place], [address] Urea nitrogen [Mass/Vol] 30 mg/dL High 4-19 [facility] Comment on above: Performed By: #### L 500.4050, L100.0100 ####[facility] [address] [place], [address] Eosinophil percentageOrdered By: Mackenzie Vance on 12-24-2024 Eosinophils/100 WBC (Bld) 1.6 % 0-5 [facility] Erythrocyte distribution wid th ratioOrdered By: Mackenzie Vance on 12-24-2024 Erythrocyte distribution width (RBC) [Ratio] 13.1 % 11.6-14.6 [facility] Erythrocyte distribution wid th standard deviationOrdered By: Mackenzie Vance on 12-24-2024 Erythrocyte distribution width (RBC) [Ratio] 42.7 fl 35.1-43.9 [facility] Glomerular filtration rate ( GFR) estimation/1.73 sq m using serum, plasma, or whole bOrdered By: Mackenzie Vance on 12-24-2024 GFR/1.73 sq M.predicted among non-blacks MDRD (S/P/Bld) [Vol rate/Area] 32 mL/min/{1.73_m2} Low >60 [facility] Comment on above: mL/min/1.73m2 CKD-EP I Creatinine Equation (2020) Hematocrit Auto (Bld) [Volum e fraction]Ordered By: Mackenzie Vance on 12-24-2024 Hematocrit (Bld) [Volume fraction] 38.0 % 37-47 [facility] Hemoglobin measurementOrdere d By: Mackenzie Vance on 12-24-2024 Hemoglobin (Bld) [Mass/Vol] 13.0 g/dL 12.0-15.0 [facility] Immature granulocytes/100 WB C Auto (Bld)Ordered By: Mackenzie Vance on 12-24-2024 Immature granulocytes/100 WBC (Bld) 0.300 % 0.0-0.9 [facility] Comment on above: IG% - Immature Granu locytes (promyelocytes, myelocytes and metamyelocytes) > 1% indicates that a LEFT SHIFT is Present. Laboratory - Chemistry and C hemistry - challengeOrdered By: Mackenzie Vance on 12-24-2024 AST [Catalytic activity/Vol] 18 U/L <32 [facility] MCV (mean corpuscular volume ) determinationOrdered By: Mackenzie Vance on 12-24-2024 MCV (RBC) [Entitic vol] 88.2 fL 81-99 [facility] Mean corpuscular hemoglobin (MCH) determinationOrdered By: Mackenzie Vance on 12-24-2024 MCH (RBC) [Entitic mass] 30.2 pg 27.0-32.0 [facility] Mean corpuscular hemoglobin concentration (MCHC) determinationOrdered By: Mackenzie Vance on 12-24-2024 MCHC (RBC) [Mass/Vol] 34.2 g/dL 32-36 [facility] Mean platelet volume determi nationOrdered By: Mackenzie Vance on 12-24-2024 Platelet mean volume (Bld) [Entitic vol] 10.1 fL 6.2-12.0 [facility] Monocyte percentageOrdered B y: Mackenzie Vance on 12-24-2024 Monocytes/100 WBC (Bld) 10.0 % 0-10 [facility] [place] Neutrophil percentageOrdered By: Mackenzie Vance on 12-24-2024 Neutrophils/100 WBC (Bld) 77.2 % High 47-70 [facility] Nucleated red blood cell per centageOrdered By: Mackenzie Vance on 12-24-2024 Nucleated RBC/100 WBC (Bld) [Ratio] 0 % 0-5 [facility] Platelet countOrdered By: Eliana Vance on 12-24-2024 Platelets (Bld) [#/Vol] 248 10*3/uL 150-450 [facility] Potassium measurement (mass/ volume)Ordered By: Mackenzie Vance on 12-24-2024 Potassium (Unsp spec) [Mass/Vol] 4.4 mmol/L 3.3-5.1 [facility] RBC Auto (Bld) [#/Vol]Ordere d By: Mackenzie Vance on 12-24-2024 RBC (Bld) [#/Vol] 4.31 10*6/uL 4.2-5.4 [facility] Serum creatinine measurement (mass/volume)Ordered By: Mackenzie Vance on 12-24-2024 Creatinine [Mass/Vol] 1.56 mg/dL High 0.70-1.20 [facility] Serum globulin measurementOr dered By: Mackenzie Vance on 12-24-2024 Globulin (S) [Mass/Vol] 3.5 g/dL 2.2-4.2 [facility] [place] Serum glucose measurement (m ass/volume)Ordered By: Mackenzie Vance on 12-24-2024 Glucose [Mass/Vol] 178 mg/dL High 70-99 [facility] Serum or plasma alanine michaels otransferase (ALT) measurementOrdered By: Mackenzie Vance on 12-24-2024 ALT [Catalytic activity/Vol] 16 U/L <35 [facility] Serum or plasma albumin brian urement (mass/volume)Ordered By: Mackenzie Vance on 12-24-2024 Albumin [Mass/Vol] 3.6 g/dL 3.4-4.8 [facility] Serum or plasma albumin/glob ulin mass ratioOrdered By: Mackenzie Vance on 12-24-2024 Albumin/Globulin [Mass ratio] 1.0 {ratio} 0.9-2.4 [facility] Serum or plasma alkaline ashley sphatase measurementOrdered By: Mackenzie Vance on 12-24-2024 ALP [Catalytic activity/Vol] 80 U/L 35-104 [facility] Serum or plasma calcium brian urement (mass/volume)Ordered By: Mackenzie Rajiv on 12-24-2024 Calcium [Mass/Vol] 10.0 mg/dL 7.6-11.0 [facility] Serum or plasma urea nitroge n measurement (mass/volume)Ordered By: Mackenzie Vance on 12-24-2024 Urea nitrogen [Mass/Vol] 30 mg/dL High 4-19 [facility] Sodium levelOrdered By: Brittany sunny Rajiv on 12-24-2024 Sodium [Moles/Vol] 135 mmol/L 133-145 [facility] Total proteinOrdered By: Siva Vance on 12-24-2024 Protein [Mass/Vol] 7.1 g/dL 5.9-8.4 [facility] White blood cell (WBC) count Ordered By: Mackenzie Vance on 12-24-2024 WBC (Bld) [#/Vol] 15.1 10*3/uL High 4.4-11.0 [facility] Cardiology Visit Reporton Cardiology Visit Report [facility] 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 She had a tingling in her rib [...] 96 Intake Visit Reasons: 4 M FU Sales Support Technician Required: No Is patient in pain?: No Allergies clonidine (From Catapres) Allergy (Intermediate, Verified 12/16/24 13:38) Topical Reaction to PATCH ONLY, pills ok morphine Adverse Reaction (Intermediate, Verified 12/16/24 13:38) mental status change meperidine HCl (From Demerol) Adverse Reaction (Mild, Verified 12/16/24 13:38) mental status change Medications ???Medication ???Instructions ???Recorded ???Confirmed ???Type latanoprost 0.005 % eye drops 1 drp EACH EYE [facility] Cataracts/Dry 0 07/29/14 12/16/24 History (Xalatan) eye [...] you fallen in the past year?: No [facility] Medical History Obesity Left carotid artery [...] hysterectomy H (more content not included)... Normal [facility] Bilirubin directOrdered By: Kimberly Hernandez on 12-06-2024 Bilirubin.direct [Mass/Vol] 0.28 mg/dL 0.00-0.30 [facility] Bilirubin, totalOrdered By: Kimberly Hernandez on 12-06-2024 Bilirubin [Mass/Vol] 0.68 mg/dL 0.00-1.30 [facility] Calculated very low density lipoprotein (VLDL) cholesterol measurementOrdered By: Kimberly Hernandez on 12-06-2024 Calculated very low density lipoprotein (VLDL) cholesterol measurement 24 mg/dL 5-40 [facility] LDL calc ser/plasOrdered By: Kimberly Hernandez on 12-06-2024 Cholesterol in LDL [Mass/Vol] 77 mg/dL [facility] Comment on above: Swnxvuurnv=204-288 m g/dL & Higher Ahvq=053 mg/dL or greater Laboratory - Chemistry and C hemistry - challengeOrdered By: Kimberly Hernandez on 12-06-2024 AST [Catalytic activity/Vol] 24 U/L <32 [facility] Lipid Profileon 12-06-2024 CHOL:HDL 3.20 Normal [facility] Comment on above: Performed By: #### L 500.4100, L500.3400 ####[facility] [address] [place], [place], [phone] Cholesterol [Mass/Vol] 147 mg/dL Normal <=200 [facility] Comment on above: Result Comment: Chol esterol level, Desirable <200 mg/dL Borderline high cholesterol 200-239 mg/dL High cholesterol >=240 mg/dL Recommendations of the NCEP Adult Treatment Panel for the following risk-cutoff thresholds for the [place] population. Performed By: #### L 500.4100, L500.3400 ####[facility] [address] [place], [place], [id number] Cholesterol in HDL [Mass/Vol] 46 mg/dL Normal [facility] Comment on above: Result Comment: Shabnam onal Cholesterol Education Program (NCEP) guidelines: <40 mg/dL: Low HDL-cholesterol (major risk factor for CHD) >= 60 mg/dL: High HDL-cholesterol (negative risk factor for CHD) HDL-cholesterol is affected by a number of factors, e.g. smoking, exercise, hormones, sex and age. Performed By: #### L 500.4100, L500.3400 ####[facility] [address] [place], [address] Cholesterol in LDL [Mass/Vol] 77 mg/dL Normal [facility] Comment on above: Result Comment: Bord krebym=355-177 mg/dL Higher Tnhj=505 mg/dL or greater Performed By: #### L 500.4100, L500.3400 ####[facility] [address] [place], [address] Cholesterol in VLDL [Mass/Vol] 24 mg/dL Normal 5-40 [facility] Comment on above: Performed By: #### L 500.4100, L500.3400 ####[facility] [address] [place], [address] Triglyceride [Mass/Vol] 121 mg/dL Normal [facility] Comment on above: Result Comment: The drugs N-Acetylcysteine and Metamizole may falsely depress this assay. Normal range: <150 mg/dL Borderline High: 150-199 mg/dL High: 200-499 mg/dL Very High: >500 mg/dL Performed By: #### L 500.4100, L500.3400 ####[facility] [address] [place], [address] Liver Profileon 12-06-2024 Albumin [Mass/Vol] 3.9 g/dL Normal 3.4-4.8 [facility] Comment on above: Performed By: #### L 500.4100, L500.3400 ####[facility] [address] [place], [address] ALK PHOS 80 U/L Normal 35-104 [facility] Comment on above: Performed By: #### L 500.4100, L500.3400 ####[facility] [address] [place], [address] ALT [Catalytic activity/Vol] 19 U/L Normal <=34 [facility] Comment on above: Performed By: #### L 500.4100, L500.3400 ####[facility] [address] [place], [address] AST [Catalytic activity/Vol] 24 U/L Normal <=31 [facility] Comment on above: Performed By: #### L 500.4100, L500.3400 ####[facility] [address] [place], [address] Bilirubin [Mass/Vol] 0.68 mg/dL Normal 0.00-1.30 [facility] Comment on above: Performed By: #### L 500.4100, L500.3400 ####[facility] [address] [place], [address] Bilirubin.direct [Mass/Vol] 0.28 mg/dL Normal 0.00-0.30 [facility] Comment on above: Performed By: #### L 500.4100, L500.3400 ####[facility] [address] [place], [address] Globulin (S) [Mass/Vol] 3.6 g/dL Normal 2.2-4.2 [facility] Comment on above: Performed By: #### L 500.4100, L500.3400 ####[facility] [address] [place], [address] T PROT 7.5 g/dL Normal 5.9-8.4 [facility] Comment on above: Performed By: #### L 500.4100, L500.3400 ####[facility] [address] [place], [address] Screening total cholesterol/ high density lipoprotein (HDL) cholesterol ratioOrdered By: Kimberly Hernandez on 12-06-2024 Cholesterol.total/Choles terol in HDL [Mass ratio] 3.20 {ratio} [facility] Serum globulin measurementOr dered By: Kimberly Hernandez on 12-06-2024 Globulin (S) [Mass/Vol] 3.6 g/dL 2.2-4.2 [facility] [place] Serum or plasma alanine michaels otransferase (ALT) measurementOrdered By: Kimberly Hernandez on 12-06-2024 ALT [Catalytic activity/Vol] 19 U/L <35 [facility] Serum or plasma albumin brian urement (mass/volume)Ordered By: Kimberly Hernandez on 12-06-2024 Albumin [Mass/Vol] 3.9 g/dL 3.4-4.8 [facility] Serum or plasma alkaline ashley sphatase measurementOrdered By: Kimberly Hernandez on 12-06-2024 ALP [Catalytic activity/Vol] 80 U/L 35-104 [facility] Serum or plasma cholesterol in HDL measurement (mass/volume)Ordered By: Kimberly Hernandez on 12-06-2024 Cholesterol in HDL [Mass/Vol] 46 mg/dL >40 [facility] Comment on above: National Cholesterol Education Program (NCEP) guidelines:<40 mg/dL: Low HDL-cholesterol (major risk factor for CHD)>= 60 mg/dL: High HDL-cholesterol (negative risk factor for CHD)HDL-cholesterol is affected by a number of factors, e.g. smoking, exercise, hormones, sex and age. Serum or plasma cholesterol measurement (mass/volume)Ordered By: Kimberly Hernandez on 12-06-2024 Cholesterol [Mass/Vol] 147 mg/dL <201 [facility] Comment on above: Cholesterol level, D esirable <200 mg/dLBorderline high cholesterol 200-239 mg/dLHigh cholesterol >=240 mg/dLRecommendations of the NCEP Adult Treatment Panel for the following risk-cutoff thresholds for the [place] population. Total proteinOrdered By: Jass Hernandez on 12-06-2024 Protein [Mass/Vol] 7.5 g/dL 5.9-8.4 [facility] Triglycerides measurementOrd ered By: Kimberly Hernandez on 12-06-2024 Triglyceride [Mass/Vol] 121 mg/dL <199 [facility] Comment on above: The drugs N-Acetylcy steine and Metamizole may falsely depress this assay. Normal range: <150 mg/dLBorderline High: 150-199 mg/dLHigh: 200-499 mg/dLVery High: >500 mg/dL Carotid Duplex Ultrasoundon 11-09-2024 Carotid Duplex Ultrasound [facility] [place] [address] [address] Carotid Duplex Ultrasound 11/09/24 1259 MR#: [id number] Acct: [id number] Name: DEBBIE MIRELES Rep #: [id number] : 1935 89 From: Willy Trimble MD [...] the left vertebral artery. Procedure Carotid Duplex 37891. This is a Carotid Duplex examination using [...] Date Dictated: 11/09/24 1259 Date Transcribed: 11/09/241807 High Pressure Cleaner: Signed Normal [facility] Duplex ultrasound of carotid artery reportOrdered By: Willy Trimble on 11-09-2024 Study report [facility] [address] [place] [address] Carotid Duplex Ultrasound 11/09/24 1259 MR#: [id number] Acct: [id number] Name: DEBBIE MIRELES Rep #:[id number] : 1935 89 From: Willy Chi Attending [...] the left vertebral artery. Procedure Carotid Duplex 24711. This is a Carotid Duplex examination using [...] Date Dictated: 11/09/24 1259 Date Transcribed: 11/09/241807 High Pressure Cleaner: Signed [facility] Work Phone: Absolute lymphocyte countOrd ered By: Martina Lal on 10-12-2024 Lymphocytes Auto (Unsp spec) [#/Vol] 2.50 10*3/uL 0.83-4.51 [facility] Absolute neutrophil countOrd ered By: Martina Lal on 10-12-2024 Neutrophils (Bld) [#/Vol] 4.9 10*3/uL 2.0-7.7 [facility] Albumin DL <= 20 mg/L (U) [M ass/Vol]Ordered By: Martina Lal on 10-12-2024 Urine Random Microalbumin 14.0 mg/L NO RANGE EST. [facility] Anion gap in Serum or Plasma Ordered By: Martina Lal on 10-12-2024 Anion gap [Moles/Vol] 11 mmol/L 5-15 [facility] Automated lymphocyte count a s percentage of total leukocytesOrdered By: Martina Lal on 10-12-2024 Lymphocytes/100 WBC Auto (Unsp spec) 27.9 % 19-41 [facility] BUN/creatinine ratioOrdered By: Martina Lal on 10-12-2024 Urea nitrogen/Creatinine [Mass ratio] 23.9 mg/mg High 10-20 [facility] Basophil percentageOrdered B y: Martina Lal on 10-12-2024 Basophils/100 WBC (Bld) 0.9 % 0-1 [facility] Bilirubin Test strip Ql (U)O rdered By: Martina Lal on 10-12-2024 Bilirubin Ql (U) Negative Negative [facility] Bilirubin directOrdered By: Martina Lal on 10-12-2024 Bilirubin.direct [Mass/Vol] 0.36 mg/dL High 0.00-0.30 [facility] Bilirubin, Directon 10-13-19 Bilirubin.direct [Mass/Vol] 0.36 mg/dL High 0.00-0.30 [facility] Comment on above: Order Comment: DR. Arti ANTHONY GETS RESULTS FOR CBCD,PROCRE URINE DR. FALLTS RESULTS FOR ALL OTHER LABS Performed By: #### L 501.4700, L501.9520, L501.0900, L506.1001, L501.2300, L500.4050, L100.0100, L502.0250, L500.4100, L400.2010 ####[facility] [address] [place], [place], [id number] Bilirubin, totalOrdered By: Martina Lal on 10-12-2024 Bilirubin [Mass/Vol] 0.91 mg/dL 0.00-1.30 [facility] CBC W/Diff, Automatedon 09-19 Absolute Lymph 2.50 X10 3/uL Normal 0.83-4.51 [facility] Comment on above: Performed By: #### L 501.4700, L501.9520, L501.0900, L506.1001, L501.2300, L500.4050, L100.0100, L502.0250, L500.4100, L400.2010 ####[facility] [address] [place], [address] Absolute Neut 4.9 X10 3/uL Normal 2.0-7.7 [facility] Comment on above: Performed By: #### L 501.4700, L501.9520, L501.0900, L506.1001, L501.2300, L500.4050, L100.0100, L502.0250, L500.4100, L400.2010 ####[facility] [address] [facility] [place], [address] Basophils/100 WBC (Bld) 0.9 % Normal 0-1 [facility] Comment on above: Performed By: #### L 501.4700, L501.9520, L501.0900, L506.1001, L501.2300, L500.4050, L100.0100, L502.0250, L500.4100, L400.2010 ####[facility] [address] [facility] [place], [place], [phone] Eosinophils/100 WBC (Bld) 4.0 % Normal 0-5 [facility] Comment on above: Performed By: #### L 501.4700, L501.9520, L501.0900, L506.1001, L501.2300, L500.4050, L100.0100, L502.0250, L500.4100, L400.2010 ####[facility] [address] [facility] [place], [phone] Erythrocyte distribution width (RBC) [Ratio] 13.2 % Normal 11.6-14.6 [facility] Comment on above: Performed By: #### L 501.4700, L501.9520, L501.0900, L506.1001, L501.2300, L500.4050, L100.0100, L502.0250, L500.4100, L400.2010 ####[facility] [address] [facility] [place], [place], [phone] Hematocrit (Bld) [Volume fraction] 41.4 % Normal 37-47 [facility] Comment on above: Performed By: #### L 501.4700, L501.9520, L501.0900, L506.1001, L501.2300, L500.4050, L100.0100, L502.0250, L500.4100, L400.2010 ####[facility] [address] [place], [address] Hemoglobin (Bld) [Mass/Vol] 14.0 g/dL Normal 12.0-15.0 [facility] Comment on above: Performed By: #### L 501.4700, L501.9520, L501.0900, L506.1001, L501.2300, L500.4050, L100.0100, L502.0250, L500.4100, L400.2010 ####[facility] [address] [place], [address]( IG% 0.400 Normal 0.0-0.9 [facility] Comment on above: Result Comment: IG% - Immature Granulocytes (promyelocytes, myelocytes and metamyelocytes) > 1% indicates that a LEFT SHIFT is Present. Performed By: #### L 501.4700, L501.9520, L501.0900, L506.1001, L501.2300, L500.4050, L100.0100, L502.0250, L500.4100, L400.2010 ####[facility] [address] [place], [address] Lymphocytes/100 WBC (Bld) 27.9 % Normal 19-41 [facility] Comment on above: Performed By: #### L 501.4700, L501.9520, L501.0900, L506.1001, L501.2300, L500.4050, L100.0100, L502.0250, L500.4100, L400.2010 ####[facility] [address] [place], [address] MCH (RBC) [Entitic mass] 30.6 pg Normal 27.0-32.0 [facility] Comment on above: Performed By: #### L 501.4700, L501.9520, L501.0900, L506.1001, L501.2300, L500.4050, L100.0100, L502.0250, L500.4100, L400.2010 ####[facility] [address] [place], [address] MCHC (RBC) [Mass/Vol] 33.8 g/dL Normal 32-36 [facility] Comment on above: Performed By: #### L 501.4700, L501.9520, L501.0900, L506.1001, L501.2300, L500.4050, L100.0100, L502.0250, L500.4100, L400.2010 ####[facility] [address] [facility] [place], [address] MCV (RBC) [Entitic vol] 90.4 fL Normal 81-99 [facility] Comment on above: Performed By: #### L 501.4700, L501.9520, L501.0900, L506.1001, L501.2300, L500.4050, L100.0100, L502.0250, L500.4100, L400.2010 ####[facility] [address] [facility] [place], [address] Monocytes/100 WBC (Bld) 11.8 % High 0-10 [facility] Comment on above: Performed By: #### L 501.4700, L501.9520, L501.0900, L506.1001, L501.2300, L500.4050, L100.0100, L502.0250, L500.4100, L400.2010 ####[facility] [address] [facility] [place], [address] Neutrophils/100 WBC (Bld) 55.0 % Normal 47-70 [facility] Comment on above: Performed By: #### L 501.4700, L501.9520, L501.0900, L506.1001, L501.2300, L500.4050, L100.0100, L502.0250, L500.4100, L400.2010 ####[facility] [address] [place], [address] Nucleated RBC (Bld) [#/Vol] 0 10*3/uL Normal 0-5 [facility] [facility] Comment on above: Performed By: #### L 501.4700, L501.9520, L501.0900, L506.1001, L501.2300, L500.4050, L100.0100, L502.0250, L500.4100, L400.2010 ####[facility] [address] [facility] [place], [address] Platelet mean volume (Bld) [Entitic vol] 10.1 fL Normal 6.2-12.0 [facility] Comment on above: Performed By: #### L 501.4700, L501.9520, L501.0900, L506.1001, L501.2300, L500.4050, L100.0100, L502.0250, L500.4100, L400.2010 ####[facility] [address] [facility] [place], [address] Platelets (Bld) [#/Vol] 264 10*3/uL Normal 150-450 [facility] Comment on above: Performed By: #### L 501.4700, L501.9520, L501.0900, L506.1001, L501.2300, L500.4050, L100.0100, L502.0250, L500.4100, L400.2010 ####[facility] [address] [facility] [place], [address] RBC (Bld) [#/Vol] 4.58 10*6/uL Normal 4.2-5.4 [facility] Comment on above: Performed By: #### L 501.4700, L501.9520, L501.0900, L506.1001, L501.2300, L500.4050, L100.0100, L502.0250, L500.4100, L400.2010 ####[facility] [address] [facility] [place], [place], [id number] RDW SD 43.7 fl Normal 35.1-43.9 [facility] Comment on above: Performed By: #### L 501.4700, L501.9520, L501.0900, L506.1001, L501.2300, L500.4050, L100.0100, L502.0250, L500.4100, L400.2010 ####[facility] [address] [facility] [place], [place], [id number] WBC (Bld) [#/Vol] 9.0 10*3/uL Normal 4.4-11.0 [facility] Comment on above: Performed By: #### L 501.4700, L501.9520, L501.0900, L506.1001, L501.2300, L500.4050, L100.0100, L502.0250, L500.4100, L400.2010 ####[facility] [address] [facility] [place], [place], [id number] Calculated very low density lipoprotein (VLDL) cholesterol measurementOrdered By: Martina Lal on 10-12-2024 Calculated very low density lipoprotein (VLDL) cholesterol measurement 25 mg/dL - [facility] VLDL Cholesterol 25 mg/dL - [facility] Carbon dioxide, total [Moles /volume] in Central venous bloodOrdered By: Martina Lal on 10-12-2024 CO2 [Moles/Vol] 23.1 mmol/L 21.0-32.0 [facility] Chloride assayOrdered By: Pascual Lal on 10-12-2024 Chloride [Moles/Vol] 105 mmol/L 98-108 [facility] Comprehensive Metabolic Prof ilon 10-12-2024 Albumin [Mass/Vol] 3.7 g/dL Normal 3.4-4.8 [facility] Comment on above: Order Comment: DR. Arti ANTHONY GETS RESULTS FOR CBCD,PROCRE URINE DR. WARNER RESULTS FOR ALL OTHER LABS Performed By: #### L 501.4700, L501.9520, L501.0900, L506.1001, L501.2300, L500.4050, L100.0100, L502.0250, L500.4100, L400.2010 ####[facility] [address] [place], [address] Albumin/Globulin [Mass ratio] 1.1 {ratio} Normal 0.9-2.4 [facility] Comment on above: Order Comment: DR. Arti ANTHONY GETS RESULTS FOR CBCD,PROCRE URINE DR. WARNER RESULTS FOR ALL OTHER LABS Performed By: #### L 501.4700, L501.9520, L501.0900, L506.1001, L501.2300, L500.4050, L100.0100, L502.0250, L500.4100, L400.2010 ####[facility] [address] [place], [address] ALK PHOS 78 U/L Normal 35-104 [facility] Comment on above: Order Comment: DR. Arti ANTHONY GETS RESULTS FOR CBCD,PROCRE URINE DR. WARNER RESULTS FOR ALL OTHER LABS Performed By: #### L 501.4700, L501.9520, L501.0900, L506.1001, L501.2300, L500.4050, L100.0100, L502.0250, L500.4100, L400.2010 ####[facility] [address] [place], [address] ALT [Catalytic activity/Vol] 19 U/L Normal <=34 [facility] Comment on above: Order Comment: DR. Arti ANTHONY GETS RESULTS FOR CBCD,PROCRE URINE DR. WARNER RESULTS FOR ALL OTHER LABS Performed By: #### L 501.4700, L501.9520, L501.0900, L506.1001, L501.2300, L500.4050, L100.0100, L502.0250, L500.4100, L400.2010 ####[facility] [address] [place], [address] AST [Catalytic activity/Vol] 18 U/L Normal <=31 [facility] Comment on above: Order Comment: DR. Arti ANTHONY GETS RESULTS FOR CBCD,PROCRE URINE DR. WARNER RESULTS FOR ALL OTHER LABS Performed By: #### L 501.4700, L501.9520, L501.0900, L506.1001, L501.2300, L500.4050, L100.0100, L502.0250, L500.4100, L400.2010 ####[facility] [address] [place], [place], [id number] Bilirubin [Mass/Vol] 0.91 mg/dL Normal 0.00-1.30 [facility] Comment on above: Order Comment: DR. Arti ANTHONY GETS RESULTS FOR CBCD,PROCRE URINE DR. WARNER RESULTS FOR ALL OTHER LABS Performed By: #### L 501.4700, L501.9520, L501.0900, L506.1001, L501.2300, L500.4050, L100.0100, L502.0250, L500.4100, L400.2010 ####[facility] [address] [place], [place], [id number] BUN/CRE 23.9 RATIO High 10-20 [facility] Comment on above: Order Comment: DR. Arti ANTHONY GETS RESULTS FOR CBCD,PROCRE URINE DR. WARNER RESULTS FOR ALL OTHER LABS Performed By: #### L 501.4700, L501.9520, L501.0900, L506.1001, L501.2300, L500.4050, L100.0100, L502.0250, L500.4100, L400.2010 ####[facility] [address] [place], [address] Calcium [Mass/Vol] 10.2 mg/dL Normal 7.6-11.0 [facility] Comment on above: Order Comment: DR. Arti ANTHONY GETS RESULTS FOR CBCD,PROCRE URINE DR. WARNER RESULTS FOR ALL OTHER LABS Performed By: #### L 501.4700, L501.9520, L501.0900, L506.1001, L501.2300, L500.4050, L100.0100, L502.0250, L500.4100, L400.2010 ####[facility] [address] [place], [address] Chloride [Moles/Vol] 105 mmol/L Normal 98-108 [facility] Comment on above: Order Comment: DR. Arti ANTHONY GETS RESULTS FOR CBCD,PROCRE URINE DR. WARNER RESULTS FOR ALL OTHER LABS Performed By: #### L 501.4700, L501.9520, L501.0900, L506.1001, L501.2300, L500.4050, L100.0100, L502.0250, L500.4100, L400.2010 ####[facility] [address] [place], [address] CO2 [Moles/Vol] 23.1 mmol/L Normal 21.0-32.0 [facility] Comment on above: Order Comment: DR. Arti ANTHONY GETS RESULTS FOR CBCD,PROCRE URINE DR. WARNER RESULTS FOR ALL OTHER LABS Performed By: #### L 501.4700, L501.9520, L501.0900, L506.1001, L501.2300, L500.4050, L100.0100, L502.0250, L500.4100, L400.2010 ####[facility] [address] [place], [address] Creatinine [Mass/Vol] 1.31 mg/dL High 0.70-1.20 [facility] Comment on above: Order Comment: DR. Arti ANTHONY GETS RESULTS FOR CBCD,PROCRE URINE DR. WARNER RESULTS FOR ALL OTHER LABS Performed By: #### L 501.4700, L501.9520, L501.0900, L506.1001, L501.2300, L500.4050, L100.0100, L502.0250, L500.4100, L400.2010 ####[facility] [address] [place], [place], [phone] GAP 11 Normal 5-15 [facility] Comment on above: Order Comment: DR. Arti ANTHONY GETS RESULTS FOR CBCD,PROCRE URINE DR. WARNER RESULTS FOR ALL OTHER LABS Performed By: #### L 501.4700, L501.9520, L501.0900, L506.1001, L501.2300, L500.4050, L100.0100, L502.0250, L500.4100, L400.2010 ####[facility] [address] [facility] [address] [place], [place], [phone] GFR/1.73 sq M.predicted among non-blacks MDRD (S/P/Bld) [Vol rate/Area] 39 mL/min/{1.73_m2} Low >60 [facility] Comment on above: Order Comment: DR. Arti ANTHONY GETS RESULTS FOR CBCD,PROCRE URINE DR. WARNER RESULTS FOR ALL OTHER LABS Result Comment: mL/m in/1.73m2 CKD-EPI Creatinine Equation (2020) Performed By: #### L 501.4700, L501.9520, L501.0900, L506.1001, L501.2300, L500.4050, L100.0100, L502.0250, L500.4100, L400.2010 ####[facility] [address] [place], [place], [phone] Globulin (S) [Mass/Vol] 3.5 g/dL Normal 2.2-4.2 [facility] Comment on above: Order Comment: DR. Arti ANTHONY GETS RESULTS FOR CBCD,PROCRE URINE DR. WARNER RESULTS FOR ALL OTHER LABS Performed By: #### L 501.4700, L501.9520, L501.0900, L506.1001, L501.2300, L500.4050, L100.0100, L502.0250, L500.4100, L400.2010 ####[facility] [address] [place], [address] Glucose [Mass/Vol] 121 mg/dL High 70-99 [facility] Comment on above: Order Comment: DR. Arti ANTHONY GETS RESULTS FOR CBCD,PROCRE URINE DR. WARNER RESULTS FOR ALL OTHER LABS Performed By: #### L 501.4700, L501.9520, L501.0900, L506.1001, L501.2300, L500.4050, L100.0100, L502.0250, L500.4100, L400.2010 ####[facility] [address] [place], [address] Potassium [Moles/Vol] 4.6 mmol/L Normal 3.3-5.1 [facility] Comment on above: Order Comment: DR. Arti ANTHONY GETS RESULTS FOR CBCD,PROCRE URINE DR. WARNER RESULTS FOR ALL OTHER LABS Performed By: #### L 501.4700, L501.9520, L501.0900, L506.1001, L501.2300, L500.4050, L100.0100, L502.0250, L500.4100, L400.2010 ####[facility] [address] [place], [address] Sodium [Moles/Vol] 139 mmol/L Normal 133-145 [facility] Comment on above: Order Comment: DR. Arti ANTHONY GETS RESULTS FOR CBCD,PROCRE URINE DR. WARNER RESULTS FOR ALL OTHER LABS Performed By: #### L 501.4700, L501.9520, L501.0900, L506.1001, L501.2300, L500.4050, L100.0100, L502.0250, L500.4100, L400.2010 ####[facility] [address] [place], [address] T PROT 7.2 g/dL Normal 5.9-8.4 [facility] Comment on above: Order Comment: DR. Arti ANTHONY GETS RESULTS FOR CBCD,PROCRE URINE DR. WARNER RESULTS FOR ALL OTHER LABS Performed By: #### L 501.4700, L501.9520, L501.0900, L506.1001, L501.2300, L500.4050, L100.0100, L502.0250, L500.4100, L400.2010 ####[facility] [address] [place], [address] Urea nitrogen [Mass/Vol] 31 mg/dL High 4-19 [facility] Comment on above: Order Comment: DR. Arti ANTHONY GETS RESULTS FOR CBCD,PROCRE URINE DR. WARNER RESULTS FOR ALL OTHER LABS Performed By: #### L 501.4700, L501.9520, L501.0900, L506.1001, L501.2300, L500.4050, L100.0100, L502.0250, L500.4100, L400.2010 ####[facility] [address] [place], [address] Creatinine Unsp time (U) [Ma ss/Vol]Ordered By: Martina Lal on 10-12-2024 Creatinine (U) [Mass/Vol] 34.60 mg/dL 28.00-217. 00 [facility] Eosinophil percentageOrdered By: Martina Lal on 10-12-2024 Eosinophils/100 WBC (Bld) 4.0 % 0-5 [facility] Erythrocyte distribution wid th ratioOrdered By: Martina Lal on 10-12-2024 Erythrocyte distribution width (RBC) [Ratio] 13.2 % 11.6-14.6 [facility] Erythrocyte distribution wid th standard deviationOrdered By: Martnia Lal on 10-12-2024 Erythrocyte distribution width (RBC) [Entitic vol] 43.7 fL 35.1-43.9 [facility] Erythrocyte distribution width (RBC) [Ratio] 43.7 fl 35.1-43.9 [facility] GFR/1.73 sq M.predicted malaika g non-blacks MDRD (S/P/Bld) [Vol rate/Area]Ordered By: Martina Lal on 10-12-2024 Estimated GFR (MDRD) Non-Af Amer 39 Low >60 [facility] Comment on above: mL/min/1.73m2 CKD-EP I Creatinine Equation (2020) Glomerular filtration rate ( GFR) estimation/1.73 sq m using serum, plasma, or whole bOrdered By: Martina Lal on 10-12-2024 GFR/1.73 sq M.predicted among non-blacks MDRD (S/P/Bld) [Vol rate/Area] 39 mL/min/{1.73_m2} Low >60 [facility] Comment on above: mL/min/1.73m2 CKD-EP I Creatinine Equation (2020) Glucose Ql (U)Ordered By: Pasucal Lal on 10-12-2024 Urine Glucose (UA) Normal mg/dl Normal [facility] Hematocrit Auto (Bld) [Volum e fraction]Ordered By: Martina Lal on 10-12-2024 Hematocrit (Bld) [Volume fraction] 41.4 % 37-47 [facility] Hemoglobin measurementOrdere d By: Martina Lal on 10-12-2024 Hemoglobin (Bld) [Mass/Vol] 14.0 g/dL 12.0-15.0 [facility] Immature granulocytes/100 WB C Auto (Bld)Ordered By: Martina Lal on 10-12-2024 Immature granulocytes/100 WBC (Bld) 0.400 % 0.0-0.9 [facility] Comment on above: IG% - Immature Granu locytes (promyelocytes, myelocytes and metamyelocytes) > 1% indicates that a LEFT SHIFT is Present. Ketones Test strip Ql (U)Ord ered By: Martina Lal on 10-12-2024 Ketones Ql (U) Negative Negative [facility] L506.1001on 10-12-2024 Vitamin D 25-OH 63.5 ng/mL Normal 30-100 [facility] Comment on above: Order Comment: DR. Arti ANTHONY GETS RESULTS FOR CBCD,PROCRE URINE DR. WARNER RESULTS FOR ALL OTHER LABS Result Comment: Swetha min D Status Deficiency: <20 ng/mL (50nmol/L) Insufficiency: 20-30 ng/mL (50-75 nmol/L) Sufficiency: 30-100 ng/mL (75-250 nmol/L) Toxicity: >100 ng/mL (>250 nmol/L) Performed By: #### L 501.4700, L501.9520, L501.0900, L506.1001, L501.2300, L500.4050, L100.0100, L502.0250, L500.4100, L400.2010 ####[facility] [address] [place], [place], [phone] LDL calc ser/plasOrdered By: Martina Lal on 10-12-2024 Cholesterol in LDL [Mass/Vol] 77 mg/dL [facility] Comment on above: Drmosonivq=879-406 m g/dL & Higher Hnmf=829 mg/dL or greater LDL Cholesterol, Calculated 77 mg/dL [facility] Comment on above: Dyqakmptlu=004-436 m g/dL & Higher Pfxx=935 mg/dL or greater Laboratory - Chemistry and C hemistry - challengeOrdered By: Martina Lal on 10-12-2024 AST [Catalytic activity/Vol] 18 U/L <32 [facility] Lipid Profileon 10-12-2024 CHOL:HDL 3.00 Normal [facility] Comment on above: Order Comment: DR. Arti ANTHONY GETS RESULTS FOR CBCD,PROCRE URINE DR. WARNER RESULTS FOR ALL OTHER LABS Performed By: #### L 501.4700, L501.9520, L501.0900, L506.1001, L501.2300, L500.4050, L100.0100, L502.0250, L500.4100, L400.2010 ####[facility] [address] [place], [address] Cholesterol [Mass/Vol] 153 mg/dL Normal <=200 [facility] Comment on above: Order Comment: DR. Arti ANTHONY GETS RESULTS FOR CBCD,PROCRE URINE DR. WARNER RESULTS FOR ALL OTHER LABS Result Comment: Chol esterol level, Desirable <200 mg/dL Borderline high cholesterol 200-239 mg/dL High cholesterol >=240 mg/dL Recommendations of the NCEP Adult Treatment Panel for the following risk-cutoff thresholds for the [place] population. Performed By: #### L 501.4700, L501.9520, L501.0900, L506.1001, L501.2300, L500.4050, L100.0100, L502.0250, L500.4100, L400.2010 ####[facility] [address] [place], [address] Cholesterol in HDL [Mass/Vol] 51 mg/dL Normal [facility] Comment on above: Order Comment: DR. [...] L506.1001, L501.2300, L500.4050, L100.0100, L502.0250, L500.4100, L400.2010 ####[facility] [address] [place], [address] Cholesterol in LDL [Mass/Vol] 77 mg/dL Normal [facility] Comment on above: Order Comment: DR. Arti ANTHONY GETS RESULTS FOR CBCD,PROCRE URINE DR. WARNER RESULTS FOR ALL OTHER LABS Result Comment: Bord nmrlze=509-360 mg/dL Higher Zjdo=719 mg/dL or greater Performed By: #### L 501.4700, L501.9520, L501.0900, L506.1001, L501.2300, L500.4050, L100.0100, L502.0250, L500.4100, L400.2010 ####[facility] [address] [place], [address] Cholesterol in VLDL [Mass/Vol] 25 mg/dL Normal 5-40 [facility] Comment on above: Order Comment: DR. Arti ANTHONY GETS RESULTS FOR CBCD,PROCRE URINE DR. FALLTS RESULTS FOR ALL OTHER LABS Performed By: #### L 501.4700, L501.9520, L501.0900, L506.1001, L501.2300, L500.4050, L100.0100, L502.0250, L500.4100, L400.2010 ####[facility] [address] [facility] [place], [address] Triglyceride [Mass/Vol] 127 mg/dL Normal [facility] Comment on above: Order Comment: DR. Arti ANTHONY GETS RESULTS FOR CBCD,PROCRE URINE DR. FALLTS RESULTS FOR ALL OTHER LABS Result Comment: The drugs N-Acetylcysteine and Metamizole may falsely depress this assay. Normal range: <150 mg/dL Borderline High: 150-199 mg/dL High: 200-499 mg/dL Very High: >500 mg/dL Performed By: #### L 501.4700, L501.9520, L501.0900, L506.1001, L501.2300, L500.4050, L100.0100, L502.0250, L500.4100, L400.2010 ####[facility] [address] [place], [address] Lymphocytes Auto (Unsp spec) [#/Vol]Ordered By: Martina Lal on 10-12-2024 Lymphocytes (Bld) [#/Vol] 2.50 10*3/uL 0.83-4.51 [facility] Lymphocytes/100 WBC Auto (Un sp spec)Ordered By: Martina Lal on 10-12-2024 Lymphocytes/100 WBC (Bld) 27.9 % 19-41 [facility] MCV (mean corpuscular volume ) determinationOrdered By: Martina Lal on 10-12-2024 MCV (RBC) [Entitic vol] 90.4 fL 81-99 [facility] Mean corpuscular hemoglobin (MCH) determinationOrdered By: Martina Lal on 10-12-2024 MCH (RBC) [Entitic mass] 30.6 pg 27.0-32.0 [facility] Mean corpuscular hemoglobin concentration (MCHC) determinationOrdered By: Martina Lal on 10-12-2024 MCHC (RBC) [Mass/Vol] 33.8 g/dL 32-36 [facility] Mean platelet volume determi nationOrdered By: Martina Lal on 10-12-2024 Platelet mean volume (Bld) [Entitic vol] 10.1 fL 6.2-12.0 [facility] Microalbumin/creat ratio urO rdered By: Martina Lal on 10-12-2024 Urine Microalbumin/Creatinine Ratio 404.6 mg/g CRE [facility] Monocyte percentageOrdered B y: Martina Lal on 10-12-2024 Monocytes/100 WBC (Bld) 11.8 % High 0-10 [facility] Neutrophil percentageOrdered By: Martina Lal on 10-12-2024 Neutrophils/100 WBC (Bld) 55.0 % 47-70 [facility] Nitrite Test strip Ql (U)Ord ered By: Martina Lal on 10-12-2024 Nitrite Ql (U) Negative Negative [facility] Nucleated red blood cell per centageOrdered By: Martina Lal on 10-12-2024 Nucleated RBC/100 WBC (Bld) [Ratio] 0 % 0-5 [facility] Phosphoruson 10-12-2024 Phosphate [Mass/Vol] 2.8 mg/dL Normal 2.7-4.5 [facility] Comment on above: Order Comment: DR. Arti ANTHONY GETS RESULTS FOR CBCD,PROCRE URINE DR. FALLTS RESULTS FOR ALL OTHER LABS Performed By: #### L 501.4700, L501.9520, L501.0900, L506.1001, L501.2300, L500.4050, L100.0100, L502.0250, L500.4100, L400.2010 ####[facility] [address] [place], [address] Platelet countOrdered By: Pascual Lal on 10-12-2024 Platelets (Bld) [#/Vol] 264 10*3/uL 150-450 [facility] Potassium (Unsp spec) [Mass/ Vol]Ordered By: Martina Lal on 10-12-2024 Potassium [Moles/Vol] 4.6 mmol/L 3.3-5.1 [facility] Potassium measurement (mass/ volume)Ordered By: Martina Lal on 10-12-2024 Potassium (Unsp spec) [Mass/Vol] 4.6 mmol/L 3.3-5.1 [facility] Protein (U) [Mass/Vol]Ordere d By: Martina Lal on 10-12-2024 Urine Random Total Protein < 6.0 mg/dL 0.0-12.0 [facility] Protein Test strip Ql (U)Ord ered By: Martina Lal on 10-12-2024 Protein Ql (U) Negative Negative [facility] Protein+Creatinine Ratio,Uri neon 10-12-2024 PROT:CRE RATIO UNABLE TO CALCULATE Normal 0-200 [facility] Comment on above: Performed By: #### L 501.4700, L501.9520, L501.0900, L506.1001, L501.2300, L500.4050, L100.0100, L502.0250, L500.4100, L400.2010 ####[facility] [address] [place], [place], [id number](152) PROTEIN,UR.RAN. < 6.0 Normal 0.0-12.0 [facility] Comment on above: Performed By: #### L 501.4700, L501.9520, L501.0900, L506.1001, L501.2300, L500.4050, L100.0100, L502.0250, L500.4100, L400.2010 ####[facility] [address] [place], [address] UR CREAT 34.60 mg/dL Normal 28.00-217. 00 [facility] Comment on above: Performed By: #### L 501.4700, L501.9520, L501.0900, L506.1001, L501.2300, L500.4050, L100.0100, L502.0250, L500.4100, L400.2010 ####[facility] [address] [facility] [address] [place], [place], [id number] Protein/Creatinine (U) [Mass ratio]Ordered By: Martina Lal on 10-12-2024 Urine Protein/Creatinine Ratio UNABLE TO CALCULATE mg/g CRE 0-200 [facility] RBC Auto (Bld) [#/Vol]Ordere d By: Martina Lal on 10-12-2024 RBC (Bld) [#/Vol] 4.58 10*6/uL 4.2-5.4 [facility] Random urine creatinine brian urement (mass/volume)Ordered By: Martina Lal on 10-12-2024 Creatinine Unsp time (U) [Mass/Vol] 34.60 mg/dL 28.00-217. 00 [facility] Screening total cholesterol/ high density lipoprotein (HDL) cholesterol ratioOrdered By: Martina Lal on 10-12-2024 Cholesterol.total/Choles terol in HDL [Mass ratio] 3.00 {ratio} [facility] Serum creatinine measurement (mass/volume)Ordered By: Martina Lal on 10-12-2024 Creatinine [Mass/Vol] 1.31 mg/dL High 0.70-1.20 [facility] Serum globulin measurementOr dered By: Martina Lal on 10-12-2024 Globulin (S) [Mass/Vol] 3.5 g/dL 2.2-4.2 [facility] Serum glucose measurement (m ass/volume)Ordered By: Martina Lal on 10-12-2024 Glucose [Mass/Vol] 121 mg/dL High 70-99 [facility] Serum or plasma alanine michaels otransferase (ALT) measurementOrdered By: Martina Lal on 10-12-2024 ALT [Catalytic activity/Vol] 19 U/L <35 [facility] Serum or plasma albumin brian urement (mass/volume)Ordered By: Martina Lal on 10-12-2024 Albumin [Mass/Vol] 3.7 g/dL 3.4-4.8 [facility] Serum or plasma albumin/glob ulin mass ratioOrdered By: Martina Lal on 10-12-2024 Albumin/Globulin [Mass ratio] 1.1 {ratio} 0.9-2.4 [facility] Serum or plasma alkaline ashley sphatase measurementOrdered By: Martina Lal on 10-12-2024 ALP [Catalytic activity/Vol] 78 U/L 35-104 [facility] Serum or plasma calcium brian urement (mass/volume)Ordered By: Martina Lal on 10-12-2024 Calcium [Mass/Vol] 10.2 mg/dL 7.6-11.0 [facility] Serum or plasma cholesterol in HDL measurement (mass/volume)Ordered By: Martina Lal on 10-12-2024 Cholesterol in HDL [Mass/Vol] 51 mg/dL >40 [facility] Comment on above: National Cholesterol Education Program (NCEP) guidelines:<40 mg/dL: Low HDL-cholesterol (major risk factor for CHD)>= 60 mg/dL: High HDL-cholesterol (negative risk factor for CHD)HDL-cholesterol is affected by a number of factors, e.g. smoking, exercise, hormones, sex and age. Serum or plasma cholesterol measurement (mass/volume)Ordered By: Martina Lal on 10-12-2024 Cholesterol [Mass/Vol] 153 mg/dL <201 [facility] Comment on above: Cholesterol level, D esirable <200 mg/dLBorderline high cholesterol 200-239 mg/dLHigh cholesterol >=240 mg/dLRecommendations of the NCEP Adult Treatment Panel for the following risk-cutoff thresholds for the [place] population. Serum or plasma urea nitroge n measurement (mass/volume)Ordered By: Martina Lal on 10-12-2024 Urea nitrogen [Mass/Vol] 31 mg/dL High 4-19 [facility] Serum phosphorus measurement Ordered By: Martina Lal on 10-12-2024 Phosphorus Level 2.8 mg/dL 2.7-4.5 [facility] Sodium levelOrdered By: Prisca Lal on 10-12-2024 Sodium [Moles/Vol] 139 mmol/L 133-145 [facility] TSH DL <= 0.005 mIU/L QnOrde red By: Martina Lal on 10-12-2024 Thyroid Stimulating Hormone (TSH) 2.580 uIU/mL 0.300-4.20 0 [facility] TSH Qn 2.580 uIU/mL 0.300-4.20 0 [facility] Thyroid Stim Hormone (TSH)on 10-12-2024 TSH 2.580 uIU/mL Normal 0.300-4.20 0 [facility] Comment on above: Order Comment: DR. Arti ANTHONY GETS RESULTS FOR CBCD,PROCRE URINE DR. FALLTS RESULTS FOR ALL OTHER LABS Performed By: #### L 501.4700, L501.9520, L501.0900, L506.1001, L501.2300, L500.4050, L100.0100, L502.0250, L500.4100, L400.2010 ####[facility] [address] [place], [address] Total proteinOrdered By: Emily Lal on 10-12-2024 Protein [Mass/Vol] 7.2 g/dL 5.9-8.4 [facility] Triglycerides measurementOrd ered By: Martina Lal on 10-12-2024 Triglyceride [Mass/Vol] 127 mg/dL <[address] [place] Comment on above: The drugs N-Acetylcy steine and Metamizole may falsely depress this assay. Normal range: <150 mg/dLBorderline High: 150-199 mg/dLHigh: 200-499 mg/dLVery High: >500 mg/dL Urinalysis, Routine (Dipstic k)on 10-12-2024 BILIRUBIN URINE Negative Normal Negative [facility] Comment on above: Order Comment: Urine , Random Performed By: #### L 501.4700, L501.9520, L501.0900, L506.1001, L501.2300, L500.4050, L100.0100, L502.0250, L500.4100, L400.2010 ####[facility] [address] [place], [place], [id number] Clarity (U) Clear Normal Clear [facility] Comment on above: Order Comment: Urine , Random Performed By: #### L 501.4700, L501.9520, L501.0900, L506.1001, L501.2300, L500.4050, L100.0100, L502.0250, L500.4100, L400.2010 ####[facility] [address] [place], [place], [phone] Color (U) Yellow Normal Yellow [facility] Comment on above: Order Comment: Urine , Random Performed By: #### L 501.4700, L501.9520, L501.0900, L506.1001, L501.2300, L500.4050, L100.0100, L502.0250, L500.4100, L400.2010 ####[facility] [address] [place], [place], [phone] GLUCOSE, UR Normal Normal Normal [facility] Comment on above: Order Comment: Urine , Random Performed By: #### L 501.4700, L501.9520, L501.0900, L506.1001, L501.2300, L500.4050, L100.0100, L502.0250, L500.4100, L400.2010 ####[facility] [address] [place], [place], [phone] KETONE UR Negative Normal Negative [facility] Comment on above: Order Comment: Urine , Random Performed By: #### L 501.4700, L501.9520, L501.0900, L506.1001, L501.2300, L500.4050, L100.0100, L502.0250, L500.4100, L400.2010 ####[facility] [address] [place], [place], [phone]([phone] LEUK ESTERASE 25 /ul Abnormal Negative [facility] Comment on above: Order Comment: Urine , Random Performed By: #### L 501.4700, L501.9520, L501.0900, L506.1001, L501.2300, L500.4050, L100.0100, L502.0250, L500.4100, L400.2010 ####[facility] [address] [place], [place], [phone] Nitrite Ql (U) Negative Normal Negative [facility] Comment on above: Order Comment: Urine , Random Performed By: #### L 501.4700, L501.9520, L501.0900, L506.1001, L501.2300, L500.4050, L100.0100, L502.0250, L500.4100, L400.2010 ####[facility] [address] [place], [place], [phone] OCCULT BLOOD-UR Negative Normal Negative [facility] Comment on above: Order Comment: Urine , Random Performed By: #### L 501.4700, L501.9520, L501.0900, L506.1001, L501.2300, L500.4050, L100.0100, L502.0250, L500.4100, L400.2010 ####[facility] [address] [place], [place], [phone]) pH UR 7.0 Normal 5.0 - 8.0 [facility] Comment on above: Order Comment: Urine , Random Performed By: #### L 501.4700, L501.9520, L501.0900, L506.1001, L501.2300, L500.4050, L100.0100, L502.0250, L500.4100, L400.2010 ####[facility] [address] [place], [address] PROT DIPSTX Negative Normal Negative [facility] Comment on above: Order Comment: Urine , Random Performed By: #### L 501.4700, L501.9520, L501.0900, L506.1001, L501.2300, L500.4050, L100.0100, L502.0250, L500.4100, L400.2010 ####[facility] [address] [place], [address] SP.GR. DIPSTX 1.010 Normal 1.002-1.03 0 [facility] Comment on above: Order Comment: Urine , Random Performed By: #### L 501.4700, L501.9520, L501.0900, L506.1001, L501.2300, L500.4050, L100.0100, L502.0250, L500.4100, L400.2010 ####[facility] [address] [place], [address] UROBILI Normal Normal Normal [facility] Comment on above: Order Comment: Urine , Random Performed By: #### L 501.4700, L501.9520, L501.0900, L506.1001, L501.2300, L500.4050, L100.0100, L502.0250, L500.4100, L400.2010 ####[facility] [address] [place], [address] Urine albumin measurement [facility] detection limit of 20 mg/L or less (mass/volume)Ordered By: Martina Lal on 10-12-2024 Albumin DL <= 20 mg/L (U) [Mass/Vol] 14.0 mg/L NO RANGE EST. [facility] Urine blood detectionOrdered By: Martina Lal on 10-12-2024 Urine Occult Blood Negative Negative [facility] Urine clarityOrdered By: Emily Lal on 10-12-2024 Clarity (U) Clear Clear [facility] Urine color determinationOrd ered By: Martina Lal on 10-12-2024 Color (U) Yellow Yellow [facility] Urine glucose detectionOrder ed By: Martina Lal on 10-12-2024 Glucose Ql (U) Normal mg/dl Normal [facility] Urine leukocyte esterase det ection by dipstickOrdered By: Martina Lal on 10-12-2024 Leukocyte esterase Test strip Ql (U) 25 /ul High Negative [facility] Urine pHOrdered By: Martina Lal on 10-12-2024 pH (U) 7.0 [pH] 5.0 - 8.0 [facility] Urine protein measurement (m ass/volume)Ordered By: Martina Lal on 10-12-2024 Protein (U) [Mass/Vol] mg/dL 0.0-12.0 [facility] Urine protein/creatinine mas s ratioOrdered By: Martina Lal on 10-12-2024 Protein/Creatinine (U) [Mass ratio] UNABLE TO CALCULATE mg/g CRE 0-200 [facility] Urine specific gravity measu rementOrdered By: Martina Lal on 10-12-2024 Specific gravity (U) [Rel density] 1.010 1.002-1.03 0 [facility] Urine urobilinogen measureme ntOrdered By: Martina Lal on 10-12-2024 Urobilinogen Ql (U) Normal mg/dl Normal [facility] Urobilinogen Ql (U)Ordered B y: Martina Lal on 10-12-2024 Urine Urobilinogen Normal mg/dl Normal [facility] Vitamin D, 25-hydroxyOrdered By: Martina Lal on 10-12-2024 Vitamin D 25-Hydroxy 63.5 ng/mL 30-100 [facility] Comment on above: Vitamin D StatusDefi ciency: <20 ng/mL (50nmol/L)Insufficiency: 20-30 ng/mL (50-75 nmol/L)Sufficiency: 30-100 ng/mL (75-250 nmol/L)Toxicity: >100 ng/mL (>250 nmol/L) White blood cell (WBC) count Ordered By: Martina Lal on 10-12-2024 WBC (Bld) [#/Vol] 9.0 10*3/uL 4.4-11.0 [facility] Breast imaging reportOrdered By: Reid Hernandez on 10-08-2024 Study report [facility] Imaging Services [address] [place] [address] SCRN MAMM (CAD)W/ROBINSON BILAT MR#: [id number] Acct: [id number] Name: DEBBIE MIRELES Rep #: [id number] : 1935 F 89 From: Contreras Hernandez MD PCP: Dr. Martina Lal DO Status: RE G CLI Study:SCRN MAMM (CAD)W/ROBINSON BILAT Date of Exa m: 10/07/24 Exam# [id number] Ordering Dr: Saul Lal DO EXAM: SCRN [...] be mailed to the patient. Reading Location: [facility] CC: Dr. Martina Lal DO ~ High Pressure Cleaner: Signed [facility] Abdomen without IV Contrasto n 10-07-2024 Abdomen without IV Contrast [facility] Imaging Services [address] [place] [address] Abdomen without IV Contrast MR#: [id number] Acct: [id number] Name: DEBBIE MIRELES Rep #: [id number] : 1935 F 89 From: Reid corea MD PCP: Dr. Martina Lal DO Status: REG CLI Study: Abdomen without IV Contrast Date of Exam: 09/19 Exam# [id number] Ordering Dr: Martina Lal DO PROCEDURE: ABDOMEN [...] abdominal wall fat containing hernia. Reading Location: [facility] CC: Dr. Martina Lal DO High Pressure Cleaner: Signed Normal [facility] SCRN MAMM (CAD)W/ROBINSON BILATo n 10-07-2024 SCRN MAMM (CAD)W/ROBINSON BILAT [facility] Imaging Services [address] [place] [address] SCRN MAMM (CAD)W/ROBINSON BILAT MR#: [id number] Acct: [id number] Name: DEBBIE MIRELES Rep #: [id number] : 1935 F 89 From: Reid corea MD PCP: Dr. Martina Lal DO Status: REG CLI Study: SCRN MAMM (CAD)W/ROBINSON BILAT Date of Exam: 09/19 Exam# [id number] Ordering Dr: Martina Lal DO EXAM: SCRN [...] be mailed to the patient. Reading Location: [facility] CC: Dr. Martina Lal DO High Pressure Cleaner: Signed Normal [facility] Cardiology Visit Reporton Cardiology Visit Report [facility] [address] [place] [address] OFFICE VISIT Date of Service: 08/17/24 MR#: [id number] Acct: [id number] Name: DEBBIE MIRELES Rep #: [id number] : 1935 Provider: PADMINI Jean Baptiste Age/Sex: 89/F Location[facility] Status: Signed HPI HPI History of Present [...] over her body. 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 She is requesting to stop losartan because she is read on the Internet that it can cause strokes and renal failure. She is also on an extensive list of uvfl-fsy-[id number] herbal and none herbal supplements. The patient [...] 96 Intake Visit Reasons: 3 M FU Sales Support Technician Required: No Is patient in pain?: No [...] of cholecystectomy (more content not included)... Normal [facility] MR/BMS.BVAlexander 08-09-2024 MR/BMS.BVS [facility] [address] [place] [address] OFFICE VISIT Date of Service: 08/09/24 MR#: [id number] Acct: [id number] Name: DEBBIE MIRELES Rep #: [id number] : 1935 Provider: Dr. Willy Trimble MD Age/Sex: 89/F Location: [facility] Status: Signed Intake Vital Signs 04/28/24 14:25 [...] blood t (more content not included)... Normal [facility] PT D/C Summary (1)on 024 PT D/C Summary (1) [facility] Physical Therapy [facility] [address] [place] [address] [address] [place] [address] / REHABILITATION SERVICES DISCHARGE SUMMARY MR#: [id number] Acct: [id number] Name: DEBBIE MIRELES Rep #: [id number] : 1935 88 From: Willy Vance DPT, OCS, CSCS Referring Dr.: Dr. Tamra Francis MD Status: REG R Insurance[facility] 05/21/18 SELF PAY INSURANCE Discharge Summary [...] please feel free to call me at [phone]. Thank you for the referral of this patient. Sincerely, Willy Vance, NORA, OCS, CSCS Balance/Gait/Function al tests Balance/Special Test Scores Oswestry Low Back Score: 15 Improvement % Improvement: 0 07/01/24 1159 CC: Dr. Tamra rFancis MD; Dr. Martina Lal DO EBG Signed Normal [facility] Inital Evaluation (1) - PTon 05-18-2024 Inital Evaluation (1) - PT [facility] Physical Therapy [facility] [address] [place] [address]. [address] [place] [address] / REHABILITATION SERVICES INITIAL EVALUATION MR#: [id number] Acct: [id number] Name: DEBBIE MIRELES Rep #: [id number] : 1935 88 From: Willy BESTT, OCS, CSCS Referring Dr.: Dr. Tamra Francis MD Status: REG RCR Insurance: [facility] [place] 05/21/18 SELF PAY INSURANCE Patient's Visit [...] on toilet in am. Lukasz sent to [facility], he has given injections in back which did not help much. Gave gabapentin but not taking due to risks. 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 As she gets going [...] to be FAXED BACK to us at [phone] for Medicare purposes. For Medicare only, by signing this I certify the plan of care. Please let me know if there are questions or concerns regarding this plan of care. Physician Signature: Date : 05/18/24 1231 CC: Dr. Tamra Francis MD; Dr. Martina Lal DO EBG Signed Normal [facility] Carotid Duplex Ultrasoundon 04-30-2024 Carotid Duplex Ultrasound [facility] Cardiovascular Services [address] [place] [address] Carotid Duplex Ultrasound 04/30/24 0956 MR#: [id number] Acct: [id number] Name: DEBBIE MIRELES Rep #: [id number] : 1935 88 From: Willy Trimble MD [...] the left vertebral artery. Procedure Carotid Duplex 47941. This is a Carotid Duplex examination using [...] Date Dictated: 04/30/24 0956 Date Transcribed: 05/03/24758 High Pressure Cleaner: Signed Normal [facility] Cardiology Visit Reporton Cardiology Visit Report [facility] [address] [facility] [facility] [place] [address] OFFICE VISIT Date of Service: 04/28/24 MR#: [id number] Acct: [id number] Name: DEBBIE MIRELES Jana Rep #: [id number] : 1935 Provider: Dr. Felice ji MD Age/Sex: 88/F Location: [facility] [place] Status: Signed HPI [facility] History of Present Illness Details: [...] over her body. 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 She is requesting to stop losartan because she is read on the Internet that it can cause strokes and renal failure. She is also on an extensive list of rcrw-dhg-omnqlye herbal and none herbal supplements. The patient [...] room air Intake Visit Reasons: 6 M Sales Support Technician Required: No Accompanied by: Self Is patient [...] % eye drops 1 drp EACH EYE [facility] Cataracts/Dry 07/29/14 04/28/24 History (Xalatan) eye cholecalciferol [...] PO DAILY SUPPLEMENT 03/17/24 04/28/24 History cardio [place] PO 04/28/24 04/28/24 History carvedilol 12.5 mg [...] Uncontrolled hyperten (more content not included)... Normal [facility] CBC W/Diff, Automatedon 02-20 0-2023 Absolute Lymph 2.20 X10 3/uL Normal 0.83-4.51 [facility] Comment on above: Performed By: #### L 100.0100, L500.4050, L502.0250, L500.4100, L501.9520, L400.0001, L506.1000 #### [facility] [address] [place], [address] Absolute Neut 5.2 X10 3/uL Normal 2.0-7.7 [facility] Comment on above: Performed By: #### L 100.0100, L500.4050, L502.0250, L500.4100, L501.9520, L400.0001, L506.1000 #### [facility] [address] [place], [address] Basophils/100 WBC (Bld) 0.6 % Normal 0-1 [facility] [place] Comment on above: Performed By: #### L 100.0100, L500.4050, L502.0250, L500.4100, L501.9520, L400.0001, L506.1000 #### [facility] [address] [place], [address] Eosinophils/100 WBC (Bld) 1.7 % Normal 0-5 [facility] Comment on above: Performed By: #### L 100.0100, L500.4050, L502.0250, L500.4100, L501.9520, L400.0001, L506.1000 #### [facility] [address] [place], [address] Erythrocyte distribution width (RBC) [Ratio] 14.4 % Normal 11.6-14.6 [facility] Comment on above: Performed By: #### L 100.0100, L500.4050, L502.0250, L500.4100, L501.9520, L400.0001, L506.1000 #### [facility] [address] [place], [address] Hematocrit (Bld) [Volume fraction] 38.8 % Normal 37-47 [facility] Comment on above: Performed By: #### L 100.0100, L500.4050, L502.0250, L500.4100, L501.9520, L400.0001, L506.1000 #### [facility] [address] [place], [address] Hemoglobin (Bld) [Mass/Vol] 12.9 g/dL Normal 12.0-15.0 [facility] Comment on above: Performed By: #### L 100.0100, L500.4050, L502.0250, L500.4100, L501.9520, L400.0001, L506.1000 #### [facility] [address] [place], [address] IG% 0.400 Normal 0.0-0.9 [facility] Comment on above: Result Comment: IG% - Immature Granulocytes (promyelocytes, myelocytes and metamyelocytes) > 1% indicates that a LEFT SHIFT is Present. Performed By: #### L 100.0100, L500.4050, L502.0250, L500.4100, L501.9520, L400.0001, L506.1000 #### [facility] [address] [place], [address] Lymphocytes/100 WBC (Bld) 26.5 % Normal 19-41 [facility] Comment on above: Performed By: #### L 100.0100, L500.4050, L502.0250, L500.4100, L501.9520, L400.0001, L506.1000 #### [facility] [address] [place], [address] MCH (RBC) [Entitic mass] 29.3 pg Normal 27.0-32.0 [facility] Comment on above: Performed By: #### L 100.0100, L500.4050, L502.0250, L500.4100, L501.9520, L400.0001, L506.1000 #### [facility] [address] [place], [address] MCHC (RBC) [Mass/Vol] 33.2 g/dL Normal 32-36 [facility] Comment on above: Performed By: #### L 100.0100, L500.4050, L502.0250, L500.4100, L501.9520, L400.0001, L506.1000 #### [facility] [address] [place], [address] MCV (RBC) [Entitic vol] 88.0 fL Normal 81-99 [place] Comment on above: Performed By: #### L 100.0100, L500.4050, L502.0250, L500.4100, L501.9520, L400.0001, L506.1000 #### [facility] [address] [place], [address] Monocytes/100 WBC (Bld) 7.9 % Normal 0-10 [facility] [place] Comment on above: Performed By: #### L 100.0100, L500.4050, L502.0250, L500.4100, L501.9520, L400.0001, L506.1000 #### [facility] [address] [place], [address] Neutrophils/100 WBC (Bld) 62.9 % Normal 47-70 [facility] Comment on above: Performed By: #### L 100.0100, L500.4050, L502.0250, L500.4100, L501.9520, L400.0001, L506.1000 #### [facility] [address] [place], [address] Nucleated RBC (Bld) [#/Vol] 0 10*3/uL Normal 0-5 [facility] Comment on above: Performed By: #### L 100.0100, L500.4050, L502.0250, L500.4100, L501.9520, L400.0001, L506.1000 #### [facility] [address] [place], [address] Platelet mean volume (Bld) [Entitic vol] 10.0 fL Normal 6.2-12.0 [facility] Comment on above: Performed By: #### L 100.0100, L500.4050, L502.0250, L500.4100, L501.9520, L400.0001, L506.1000 #### [facility] [address] [place], [address] Platelets (Bld) [#/Vol] 291 10*3/uL Normal 150-450 [facility] Comment on above: Performed By: #### L 100.0100, L500.4050, L502.0250, L500.4100, L501.9520, L400.0001, L506.1000 #### [facility] [address] [place], [address] RBC (Bld) [#/Vol] 4.41 10*6/uL Normal 4.2-5.4 [facility] Comment on above: Performed By: #### L 100.0100, L500.4050, L502.0250, L500.4100, L501.9520, L400.0001, L506.1000 #### [facility] [address] [place], [address] RDW SD 46.6 fl High 35.1-43.9 [facility] Comment on above: Performed By: #### L 100.0100, L500.4050, L502.0250, L500.4100, L501.9520, L400.0001, L506.1000 #### [facility] [address] [place], [address] WBC (Bld) [#/Vol] 8.3 10*3/uL Normal 4.4-11.0 [facility] Comment on above: Performed By: #### L 100.0100, L500.4050, L502.0250, L500.4100, L501.9520, L400.0001, L506.1000 #### [facility] [address] [place], [address] Comprehensive Metabolic Prof ilon 03-19-2024 Albumin [Mass/Vol] 3.0 g/dL Low 3.2-5.0 [facility] Comment on above: Performed By: #### L 100.0100, L500.4050, L502.0250, L500.4100, L501.9520, L400.0001, L506.1000 #### [facility] [address] [place], [address] Albumin/Globulin [Mass ratio] 0.8 {ratio} Low 0.9-2.4 [facility] Comment on above: Performed By: #### L 100.0100, L500.4050, L502.0250, L500.4100, L501.9520, L400.0001, L506.1000 #### [facility] [address] [place], [address] ALK P 75 U/L Normal 45-117 [facility] Comment on above: Performed By: #### L 100.0100, L500.4050, L502.0250, L500.4100, L501.9520, L400.0001, L506.1000 #### [facility] [address] [place], [address] ALT [Catalytic activity/Vol] 21 U/L Normal 13-56 [facility] Comment on above: Performed By: #### L 100.0100, L500.4050, L502.0250, L500.4100, L501.9520, L400.0001, L506.1000 #### [facility] [address] [place], [address] AST [Catalytic activity/Vol] 15 U/L Normal 15-37 [facility] Comment on above: Performed By: #### L 100.0100, L500.4050, L502.0250, L500.4100, L501.9520, L400.0001, L506.1000 #### [facility] [address] [place], [address] Bilirubin [Mass/Vol] 0.80 mg/dL Normal 0.20-1.00 [facility] Comment on above: Result Comment: For patients on eltrombopag therapy, use of Dimension Rosamond TBIL is not recommended. Performed By: #### L 100.0100, L500.4050, L502.0250, L500.4100, L501.9520, L400.0001, L506.1000 #### [facility] [address] [place], [address] BUN/CRE 30.9 RATIO High 10-20 [facility] Comment on above: Performed By: #### L 100.0100, L500.4050, L502.0250, L500.4100, L501.9520, L400.0001, L506.1000 #### [facility] [address] [place], [address] CA,Total 10.1 mg/dL Normal 8.5-10.1 [facility] Comment on above: Performed By: #### L 100.0100, L500.4050, L502.0250, L500.4100, L501.9520, L400.0001, L506.1000 #### [facility] [address] [place], [address] Chloride [Moles/Vol] 109 mmol/L High 98-107 [facility] Comment on above: Performed By: #### L 100.0100, L500.4050, L502.0250, L500.4100, L501.9520, L400.0001, L506.1000 #### [facility] [address] [place], [address] CO2 [Moles/Vol] 24.0 mmol/L Normal 21.0-32.0 [facility] Comment on above: Performed By: #### L 100.0100, L500.4050, L502.0250, L500.4100, L501.9520, L400.0001, L506.1000 #### [facility] [address] [place], [address] Creatinine [Mass/Vol] 1.23 mg/dL High 0.55-1.02 [facility] Comment on above: Result Comment: The validity of the calculated GFR GFRAA in patients over 70 years has not been determined. Clinical correlation is essential. Performed By: #### L 100.0100, L500.4050, L502.0250, L500.4100, L501.9520, L400.0001, L506.1000 #### [facility] [address] [place], [address] EST GFR - AA 53 mL/min Low >60 [facility] Comment on above: Result Comment: Afri can French GFR Calc Performed By: #### L 100.0100, L500.4050, L502.0250, L500.4100, L501.9520, L400.0001, L506.1000 #### [facility] [address] [place], [address] GAP 5 Normal 5-15 [facility] Comment on above: Performed By: #### L 100.0100, L500.4050, L502.0250, L500.4100, L501.9520, L400.0001, L506.1000 #### [facility] [address] [place], [address] GFR/1.73 sq M.predicted among non-blacks MDRD (S/P/Bld) [Vol rate/Area] 44 mL/min/{1.73_m2} Low >60 [facility] Comment on above: Result Comment: Non- GFR Calc Performed By: #### L 100.0100, L500.4050, L502.0250, L500.4100, L501.9520, L400.0001, L506.1000 #### [facility] [address] [place], [address] Globulin (S) [Mass/Vol] 4.0 g/dL Normal 2.2-4.2 [facility] Comment on above: Performed By: #### L 100.0100, L500.4050, L502.0250, L500.4100, L501.9520, L400.0001, L506.1000 #### [facility] [address] [place], [address] Glucose [Mass/Vol] 104 mg/dL Normal 74-106 [facility] Comment on above: Result Comment: Fast ing Glucose result from 100 to 125 mg/dL suggests IMPAIRED HOMEOSTASIS per A.D.A. criteria. Performed By: #### L 100.0100, L500.4050, L502.0250, L500.4100, L501.9520, L400.0001, L506.1000 #### [facility] [address] [place], [address] Potassium [Moles/Vol] 4.6 mmol/L Normal 3.5-5.1 [facility] Comment on above: Performed By: #### L 100.0100, L500.4050, L502.0250, L500.4100, L501.9520, L400.0001, L506.1000 #### [facility] [address] [place], [address] Sodium [Moles/Vol] 138 mmol/L Normal 136-145 [facility] Comment on above: Performed By: #### L 100.0100, L500.4050, L502.0250, L500.4100, L501.9520, L400.0001, L506.1000 #### [facility] [address] [place], [address] T PROT 7.0 g/dL Normal 6.4-8.2 [facility] Comment on above: Performed By: #### L 100.0100, L500.4050, L502.0250, L500.4100, L501.9520, L400.0001, L506.1000 #### [facility] [address] [place], [address] Urea nitrogen [Mass/Vol] 38 mg/dL High 7-18 [facility] Comment on above: Performed By: #### L 100.0100, L500.4050, L502.0250, L500.4100, L501.9520, L400.0001, L506.1000 #### [facility] [address] [place], [address] Lipid Profileon 03-19-2024 Cholesterol [Mass/Vol] 203 mg/dL High 200 [facility] Comment on above: Result Comment: <200 mg/dL Desirable 200-240 mg/dL Borderline >240 mg/dL High Risk Performed By: #### L 100.0100, L500.4050, L502.0250, L500.4100, L501.9520, L400.0001, L506.1000 ####[facility] [address] [place], [address] Cholesterol in HDL [Mass/Vol] 58 mg/dL Normal [facility] Comment on above: Result Comment: The drugs N-Acetylcysteine and Metamizole may falsely depress this assay. Reference Range HDL <40 mg/dL Low HDL Cholesterol HDL >or= 60 mg/dL High HDL Cholesterol Performed By: #### L 100.0100, L500.4050, L502.0250, L500.4100, L501.9520, L400.0001, L506.1000 ####[facility] [address] [place], [address] Cholesterol in LDL [Mass/Vol] 126 mg/dL Normal 0-130 [facility] Comment on above: Performed By: #### L 100.0100, L500.4050, L502.0250, L500.4100, L501.9520, L400.0001, L506.1000 ####[facility] [address] [place], [address] Cholesterol in VLDL [Mass/Vol] 19 mg/dL Normal 5-40 [facility] Comment on above: Performed By: #### L 100.0100, L500.4050, L502.0250, L500.4100, L501.9520, L400.0001, L506.1000 ####[facility] [address] [place], [address] Triglyceride [Mass/Vol] 93 mg/dL Normal [facility] Comment on above: Result Comment: The drugs N-Acetylcysteine and Metamizole may falsely depress this assay. Serum Triglycerides Reference Interval Normal <150 mg/dL Borderline high 150 - 199 mg/dL High 200 - 499 mg/dL Very High > or = 500 mg/dL Performed By: #### L 100.0100, L500.4050, L502.0250, L500.4100, L501.9520, L400.0001, L506.1000 ####[facility] [address] [place], [address] Microalb:Creat Ratio,Random URon 03-19-2024 Creatinine [Mass/Vol] 47.40 mg/dL Normal NO RAN GE EST. [facility] Comment on above: Performed By: #### L 100.0100, L500.4050, L502.0250, L500.4100, L501.9520, L400.0001, L506.1000 #### [facility] [address] [place], [address] MALB:CRE 104.2 mg/g CRE High <30 mg/g CRE [facility] Comment on above: Performed By: #### L 100.0100, L500.4050, L502.0250, L500.4100, L501.9520, L400.0001, L506.1000 #### [facility] [address] [place], [address] MICROALBUMIN,UR 49.4 mg/L Normal NO RANGE EST. [facility] Comment on above: Performed By: #### L 100.0100, L500.4050, L502.0250, L500.4100, L501.9520, L400.0001, L506.1000 #### [facility] [address] [place], [address] Thyroid Stim Hormone (TSH)on 03-19-2024 TSH 2.170 uIU/mL Normal 0.358-3.74 0 [facility] Comment on above: Performed By: #### L 100.0100, L500.4050, L502.0250, L500.4100, L501.9520, L400.0001, L506.1000 ####[facility] [address] [place], [address] Urinalysis, Completeon 03-19 BACTERIA 0 SEEN Normal None Seen [facility] Comment on above: Order Comment: CLEAN CATCH Performed By: #### L 100.0100, L500.4050, L502.0250, L500.4100, L501.9520, L400.0001, L506.1000 ####[facility] [address] [place], [address] EPI,SQUAMOUS 0 SEEN Normal 5-10 [facility] Comment on above: Order Comment: CLEAN CATCH Performed By: #### L 100.0100, L500.4050, L502.0250, L500.4100, L501.9520, L400.0001, L506.1000 ####[facility] [address] [place], [address] Mucus Ql (Urine sed) 0 SEEN Normal [facility] Comment on above: Order Comment: CLEAN CATCH Performed By: #### L 100.0100, L500.4050, L502.0250, L500.4100, L501.9520, L400.0001, L506.1000 ####[facility] [address] [place], [address] RBC 0 SEEN Normal 0-5 [facility] Comment on above: Order Comment: CLEAN CATCH Performed By: #### L 100.0100, L500.4050, L502.0250, L500.4100, L501.9520, L400.0001, L506.1000 ####[facility] [address] [place], [address] WBC 0 SEEN Normal 0-5 [facility] Comment on above: Order Comment: CLEAN CATCH Performed By: #### L 100.0100, L500.4050, L502.0250, L500.4100, L501.9520, L400.0001, L506.1000 ####[facility] [address] [place], [address] Vitamin D,25 Hydroxyon 03-19 Vitamin D 25-OH 39.8 ng/mL Normal [facility] Comment on above: Result Comment: Swetha min D 25(OH) Status Range Deficiency <20 ng/mL (50nmol/L) Insufficiency 20 - 30 ng/mL (50 - 75 nmol/L) Sufficiency 30 - 100 ng/mL (75 - 250 nmol/L) Toxicity >100 ng/mL (>250 nmol/L) Performed By: #### L 100.0100, L500.4050, L502.0250, L500.4100, L501.9520, L400.0001, L506.1000 ####[facility] [address] [place], [address] Pulmonary Visit Reporton Pulmonary Visit Report [facility] [place] [address] [place] [address] OFFICE VISIT Date of Service: 03/17/24 MR#: [id number] Acct: [id number] Name: DEBBIE MIRELES Rep #: [id number] : 1935 Provider: ERIKA Mcdaniels Age/Sex: 88/F Location: [facility] [place] Status: Signed Assessment and Plan Assessment and [...] loss. Plan Details Follow Up: 6 Months ([facility]) HPI 6 M FU Chief [...] air Intake Visit Reasons: 6 M FU Sales Support Technician Required: No DME Vendor: [email or web address] Accompanied by: Daughter Is patient in pain?: [...] 11/20/23 0 (more content not included)... Normal [facility] CBC-Complete Blood Cnt No Di ffon 03-15-2024 Erythrocyte distribution width (RBC) [Ratio] 14.6 % Normal 11.6-14.6 [facility] Comment on above: Performed By: #### L 500.3600, L100.0500, L501.0900 ####[facility] [address] [place], [place], [id number] Hematocrit (Bld) [Volume fraction] 38.1 % Normal 37-47 [facility] Comment on above: Performed By: #### L 500.3600, L100.0500, L501.0900 ####[facility] [address] [place], [address] Hemoglobin (Bld) [Mass/Vol] 12.6 g/dL Normal 12.0-15.0 [facility] Comment on above: Performed By: #### L 500.3600, L100.0500, L501.0900 ####[facility] [address] [place], [address] MCH (RBC) [Entitic mass] 29.4 pg Normal 27.0-32.0 [facility] Comment on above: Performed By: #### L 500.3600, L100.0500, L501.0900 ####[facility] [address] [place], [address] MCHC (RBC) [Mass/Vol] 33.1 g/dL Normal 32-36 [facility] Comment on above: Performed By: #### L 500.3600, L100.0500, L501.0900 ####[facility] [address] [place], [address] MCV (RBC) [Entitic vol] 89.0 fL Normal 81-99 [facility] Comment on above: Performed By: #### L 500.3600, L100.0500, L501.0900 ####[facility] [address] [place], [address] Platelet mean volume (Bld) [Entitic vol] 9.8 fL Normal 6.2-12.0 [facility] Comment on above: Performed By: #### L 500.3600, L100.0500, L501.0900 ####[facility] [address] [place], [address] Platelets (Bld) [#/Vol] 257 10*3/uL Normal 150-450 [facility] Comment on above: Performed By: #### L 500.3600, L100.0500, L501.0900 ####[facility] [address] [place], [address] RBC (Bld) [#/Vol] 4.28 10*6/uL Normal 4.2-5.4 [facility] Comment on above: Performed By: #### L 500.3600, L100.0500, L501.0900 ####[facility] [address] [place], [address] RDW SD 47.5 fl High 35.1-43.9 [facility] Comment on above: Performed By: #### L 500.3600, L100.0500, L501.0900 ####[facility] [address] [place], [address] WBC (Bld) [#/Vol] 8.4 10*3/uL Normal 4.4-11.0 [facility] Comment on above: Performed By: #### L 500.3600, L100.0500, L501.0900 ####[facility] [address] [place], [address] Protein+Creatinine Ratio,Uri neon 03-15-2024 PROT:CRE RATIO 204 mg/g CRE High 0-200 [facility] Comment on above: Performed By: #### L 500.3600, L100.0500, L501.0900 ####[facility] [address] [place], [address] Protein (U) [Mass/Vol] 8.4 mg/dL Normal <11.9 [facility] Comment on above: Performed By: #### L 500.3600, L100.0500, L501.0900 ####[facility] [address] [place], [address] UR CREAT 41.10 mg/dL Normal NO RANGE EST. [facility] Comment on above: Performed By: #### L 500.3600, L100.0500, L501.0900 ####[facility] [address] [place], [address] Renal Profileon 03-15-2024 Albumin [Mass/Vol] 2.8 g/dL Low 3.2-5.0 [facility] Comment on above: Performed By: #### L 500.3600, L100.0500, L501.0900 ####[facility] [address] [place], [address] BUN/CRE 25.4 RATIO High 10-20 [facility] Comment on above: Performed By: #### L 500.3600, L100.0500, L501.0900 ####[facility] [address] [place], [address] CA,Total 9.9 mg/dL Normal 8.5-10.1 [facility] Comment on above: Performed By: #### L 500.3600, L100.0500, L501.0900 ####[facility] [address] [place], [address] Chloride [Moles/Vol] 110 mmol/L High 98-107 [facility] Comment on above: Performed By: #### L 500.3600, L100.0500, L501.0900 ####[facility] [address] [place], [address] CO2 [Moles/Vol] 23.0 mmol/L Normal 21.0-32.0 [facility] Comment on above: Performed By: #### L 500.3600, L100.0500, L501.0900 ####[facility] [address] [place], [address] Creatinine [Mass/Vol] 1.30 mg/dL High 0.55-1.02 [facility] Comment on above: Result Comment: The validity of the calculated GFR GFRAA in patients over 70 years has not been determined. Clinical correlation is essential. Performed By: #### L 500.3600, L100.0500, L501.0900 ####[facility] [address] [place], [address] EST GFR - AA 50 mL/min Low >60 [facility] Comment on above: Result Comment: Afri can French GFR Calc Performed By: #### L 500.3600, L100.0500, L501.0900 ####[facility] [address] [place], [address] GFR/1.73 sq M.predicted among non-blacks MDRD (S/P/Bld) [Vol rate/Area] 41 mL/min/{1.73_m2} Low >60 [facility] Comment on above: Result Comment: Non- GFR Calc Performed By: #### L 500.3600, L100.0500, L501.0900 ####[facility] [address] [place], [address] Glucose [Mass/Vol] 81 mg/dL Normal 74-106 [facility] Comment on above: Performed By: #### L 500.3600, L100.0500, L501.0900 ####[facility] [address] [place], [address] Phosphate [Mass/Vol] 1.8 mg/dL Low 2.5-4.9 [facility] Comment on above: Performed By: #### L 500.3600, L100.0500, L501.0900 ####[facility] [address] [place], [address] Potassium [Moles/Vol] 4.3 mmol/L Normal 3.5-5.1 [facility] Comment on above: Performed By: #### L 500.3600, L100.0500, L501.0900 ####[facility] [address] [place], [address] Sodium [Moles/Vol] 140 mmol/L Normal 136-145 [facility] Comment on above: Performed By: #### L 500.3600, L100.0500, L501.0900 ####[facility] [address] [place], [address] Urea nitrogen [Mass/Vol] 33 mg/dL High 7-18 [facility] Comment on above: Performed By: #### L 500.3600, L100.0500, L501.0900 ####[facility] [address] [place], [address] Emergency Department Summary on 03-12-2024 Emergency Department Summary [facility] Medical Records Department [address] [facility] [place] [address] Emergency Department Summary 03/12/24 MR#: [id number] Acct: [id number] Name: DEBBIE MIRELES Rep #: [id number] : 1935 88 From: Tavon Dennis MD [...] Intermediate Topic (more content not included)... Normal [facility] Foot min 3 Viewson 4 Foot min 3 Views [facility] Imaging Services [address] [place] [address] Foot min 3 Views MR#: [id number] Acct: [id number] Name: DEBIBE MIRELES Jana Rep #: [id number] : 1935 F 88 From: Roger persaud MD PCP: Dr. Martina Lal, DO Status: REG ER Study: Foot min 3 Views Date of Exam: 03/12/24 Exam# [id number] Ordering Dr: Tavon Dennis MD [id number] INDICATION: Injury/Pain EXAMINATION/TECHNIQUE : X-RAY - LEFT XR Foot Min 3 Views COMPARISON: None. FINDINGS: No acute fracture or malalignment. No blastic or lytic lesions. Moderate scattered degenerative changes. The soft tissues are unremarkable. RAD/Foot min 3 Views IMPRESSION: No acute radiographic abnormalities. Electronically Signed: Roger Khoury MD at 20:21 EDT , CC: Dr. Martina Lal DO; Dr. Tavon Dennis MD High Pressure Cleaner: Signed Normal [facility] Foot min 3 Views [facility] Imaging Services [address] [place] [address] [id number] Foot min 3 Views MR#: [id number] Acct: [id number] Name: DEBBIE MIRELES Rep #: [id number] : 1935 F 88 From: Roger persaud MD PCP: Dr. Martina Lal DO Status: REG ER Study: Foot min 3 Views Date of Exam: 03/12/24 Exam# [id number] Ordering Dr: Tavon Dennis MD [id number] INDICATION: Injury/Pain EXAMINATION/TECHNIQUE : X-RAY - RIGHT [...] Martina Lal DO; Dr. Tavon Dennis MD High Pressure Cleaner: Signed Normal [facility] Femur Min 2 Viewson 03-08-20 Femur Min 2 Views [facility] Imaging Services [address] [place] [id number] Femur Min 2 Views MR#: [id number] Acct: [id number] Name: DEBBIE MIRELES Rep #: [id number] : 1935 F 88 From: Viri Chi PCP: Dr. Martina Lal DO Status: REG CLI Study: Femur Min 2 Views Date of Exam: 03/08/24 Exam# [id number] Ordering Dr: Tamra Francis MD [id number] INDICATION: BILAT HIP PAIN EXAMINATION/TECHNIQUE : X-RAY [...] Tamra Francis MD; Dr. Martina Lal DO High Pressure Cleaner: Signed Normal [facility] Femur Min 2 Views [facility] Imaging Services [address] [place] [address] Femur Min 2 Views MR#: [id number] Acct: [id number] Name: DEBBIE MIRELES Rep #: [id number] : 1935 F 88 From: Viri Chi PCP: Dr. Martina Lal DO Status: REG CLI Study: Femur Min 2 Views Date of Exam: 03/08/24 Exam# [id number] Ordering Dr: Tamra Francis MD [id number] INDICATION: HIP PAIN EXAMINATION/TECHNIQUE : X-RAY - [...] 7:51 EDT Reading Location ID and State: [facility] / [place] Tel , Service support , CC: Dr. Tamra Francis MD; Dr. Martina Lal DO High Pressure Cleaner: Signed Normal [facility] Basophil percentageOrdered B y: Dena Mengari on 11-12-2023 Basophil percentage 2.7 mg/dL 2.5-4.9 [facility] Chloride [Moles/Vol] 110 mmol/L 98-[address] [facility] [address] [facility] Glucose [Mass/Vol] 88 mg/dL 74-106 [facility] Hemoglobin (Bld) [Mass/Vol] 12.3 g/dL 12.0-15.0 [facility] Potassium [Moles/Vol] 4.6 mmol/L 3.5-5.1 [facility] Sodium [Moles/Vol] 140 mmol/L 136-145 [facility] WBC (Bld) [#/Vol] 8.4 10*3/uL 4.4-11.0 [facility] Determination of erythrocyte mean corpuscular volume (MCV)Ordered By: Dena Kwok on 11-12-2023 MCV (RBC) [Entitic vol] 90.6 fL 81-99 [facility] Erythrocyte distribution wid th ratioOrdered By: Dena Kwok on 11-12-2023 Erythrocyte distribution width (RBC) [Ratio] 14.0 % 11.6-14.6 [facility] Erythrocyte distribution wid th standard deviationOrdered By: Dena Kwok on 11-12-2023 Erythrocyte distribution width (RBC) [Entitic vol] 47.1 fL 35.1-43.9 [facility] Hematocrit Auto (Bld) [Volum e fraction]Ordered By: Dena Kwok on 11-12-2023 Hematocrit (Bld) [Volume fraction] 38.7 % 37-47 [facility] - Chemistry and C hemistry - challengeOrdered By: Dena Kwok on 11-12-2023 CO2 [Moles/Vol] 26.0 mmol/L 21.0-32.0 [facility] Urea nitrogen/Creatinine [Mass ratio] 31.3 mg/mg 10-20 [facility] - Hematology and Cell countsOrdered By: Dena Kwok on 11-12-2023 MCH (RBC) [Entitic mass] 28.8 pg 27.0-32.0 [facility] MCHC (RBC) [Mass/Vol] 31.8 g/dL 32-36 [facility] Platelet mean volume (Bld) [Entitic vol] 10.5 fL 6.2-12.0 [facility] Platelets (Bld) [#/Vol] 268 10*3/uL 150-450 [facility] No Panel InformationOrdered By: Dena Kwok on 11-12-2023 Estimated GFR (MDRD) Amer 42 mL/min >60 [facility] Comment on above: GFR Calc Estimated GFR (MDRD) Non-Af Amer 35 mL/min >60 [facility] Comment on above: Non- GFR Calc RBC Auto (Bld) [#/Vol]Ordere d By: Dena Kwok on 11-12-2023 RBC (Bld) [#/Vol] 4.27 10*6/uL 4.2-5.4 [facility] Serum or plasma calcium brian urement (mass/volume)Ordered By: Dena Kwok on 11-12-2023 Calcium [Mass/Vol] 9.8 mg/dL 8.5-10.1 [facility] Serum or plasma creatinine m easurement (mass/volume)Ordered By: Dena Kwok on 11-12-2023 Creatinine [Mass/Vol] 1.50 mg/dL 0.55-1.02 [facility] Comment on above: The validity of the calculated GFR & GFRAA in patients over 70 years has not been determined. Clinical correlation is essential. Serum or plasma urea nitroge n measurement (mass/volume)Ordered By: Dena Kwok on 11-12-2023 Urea nitrogen [Mass/Vol] 47 mg/dL 7-18 [facility] Thin prep Papanicolaou smear with manual screeningOrdered By: Dena Kwok on 11-12-2023 Protein (U) [Mass/Vol] 6.1 mg/dL 0.0-11.8 [facility] Thin prep Papanicolaou smear with manual screening 3.4 g/dL 3.2-5.0 [facility] Urine creatinine measurement (mass/volume)Ordered By: Dena Kwok on 11-12-2023 Creatinine (U) [Mass/Vol] 23.00 mg/dL NO RANGE EST. [facility] Urine protein/creatinine mas s ratioOrdered By: Dena Kwok on 11-12-2023 Protein/Creatinine (U) [Mass ratio] 265 mg/g CRE 0-200 [facility] Absolute lymphocyte countOrd ered By: Angely Carrizales on 10-24-2023 Lymphocytes Auto (Unsp spec) [#/Vol] 2.12 10*3/uL 0.83-4.51 [facility] Automated lymphocyte count a s percentage of total leukocytesOrdered By: Angelyarti Carrizales on 10-24-2023 Lymphocytes/100 WBC Auto (Unsp spec) 24.3 % 19-41 [facility] Basophil percentageOrdered B y: Angelyarti Carrizales on 10-24-2023 Basophils/100 WBC (Bld) 1.0 % 0-1 [facility] [place] Chloride [Moles/Vol] 109 mmol/L 98-107 [facility] Eosinophils/100 WBC (Bld) 3.0 % 0-5 [facility] Glucose [Mass/Vol] 120 mg/dL 74-106 [facility] Comment on above: Fasting Glucose resu lt from 100 to 125 mg/dL suggests IMPAIRED HOMEOSTASIS per A.D.A. criteria. Hemoglobin (Bld) [Mass/Vol] 11.3 g/dL 12.0-15.0 [facility] Monocytes/100 WBC (Bld) 8.7 % 0-10 [facility] [place] Neutrophils (Bld) [#/Vol] 5.5 10*3/uL 2.0-7.7 [facility] Neutrophils/100 WBC (Bld) 62.8 % 47-70 [facility] Potassium [Moles/Vol] 4.4 mmol/L 3.5-5.1 [facility] Sodium [Moles/Vol] 140 mmol/L 136-145 [facility] WBC (Bld) [#/Vol] 8.7 10*3/uL 4.4-11.0 [facility] Determination of erythrocyte mean corpuscular volume (MCV)Ordered By: Angely Carrizales on 10-24-2023 MCV (RBC) [Entitic vol] 89.2 fL 81-99 [facility] [place] Erythrocyte distribution wid th ratioOrdered By: [facility]2023 Erythrocyte distribution width (RBC) [Ratio] 13.9 % 11.6-14.6 [facility] Erythrocyte distribution wid th standard deviationOrdered By: [facility] on 10-24-2023 Erythrocyte distribution width (RBC) [Entitic vol] 45.9 fL 35.1-43.9 [facility] Hematocrit Auto (Bld) [Volum e fraction]Ordered By: Angely Carrizales on 10-24-2023 Hematocrit (Bld) [Volume fraction] 35.4 % 37-47 [facility] Immature granulocytes/100 WB C Auto (Bld)Ordered By: Angely Carrizales on 10-24-2023 Immature granulocytes/100 WBC (Bld) 0.200 % 0.0-0.9 [facility] Comment on above: IG% - Immature Granu locytes (promyelocytes, myelocytes and metamyelocytes) > 1% indicates that a LEFT SHIFT is Present. Laboratory - Chemistry and C hemistry - challengeOrdered By: Angely Carrizales on 10-24-2023 CO2 [Moles/Vol] 25.0 mmol/L 21.0-32.0 [facility] Natriuretic peptide B (Bld) [Mass/Vol] 151.4 pg/mL 0-100 [facility] Urea nitrogen/Creatinine [Mass ratio] 29.3 mg/mg 10-20 [facility] - Hematology and Cell countsOrdered By: Angely Carrizales on 10-24-2023 MCH (RBC) [Entitic mass] 28.5 pg 27.0-32.0 [facility] MCHC (RBC) [Mass/Vol] 31.9 g/dL 32-36 [facility] Nucleated RBC/100 WBC (Bld) [Ratio] 0 % 0-5 [facility] Platelet mean volume (Bld) [Entitic vol] 10.2 fL 6.2-12.0 [facility] [facility] Platelets (Bld) [#/Vol] 276 10*3/uL 150-450 [facility] No Panel InformationOrdered By: Angely Carrizales on 10-24-2023 Estimated GFR (MDRD) Amer 42 mL/min >60 [facility] Comment on above: GFR Calc Estimated GFR (MDRD) Non-Af Amer 35 mL/min >60 [facility] Comment on above: Non- GFR Calc RBC Auto (Bld) [#/Vol]Ordere d By: Angely Carrizales on 10-24-2023 RBC (Bld) [#/Vol] 3.97 10*6/uL 4.2-5.4 [facility] Serum or plasma calcium brian urement (mass/volume)Ordered By: Angely Carrizales on 10-24-2023 Calcium [Mass/Vol] 9.8 mg/dL 8.5-10.1 [facility] Serum or plasma creatinine m easurement (mass/volume)Ordered By: Angely Carrizales on 10-24-2023 Creatinine [Mass/Vol] 1.50 mg/dL 0.55-1.02 [facility] Comment on above: The validity of the calculated GFR & GFRAA in patients over 70 years has not been determined. Clinical correlation is essential. Serum or plasma thyroid stim ulating hormone (TSH) measurement (units/volume)Ordered By: Angely All on 10-24-2023 TSH Qn 2.72 uIU/mL 0.358-3.74 [facility] Serum or plasma urea nitroge n measurement (mass/volume)Ordered By: Angelyarti Carrizales on 10-24-2023 Urea nitrogen [Mass/Vol] 44 mg/dL 7-18 [facility] Thin prep Papanicolaou smear with manual screeningOrdered By: [facility] Thin prep Papanicolaou smear with manual screening 6 5-15 [facility] Basophil percentageOrdered B y: Dena Kwok on 07-10-2023 Basophil percentage 2.9 mg/dL 2.5-4.9 [facility] Chloride [Moles/Vol] 110 mmol/L 98-107 [facility] Glucose [Mass/Vol] 73 mg/dL 74-106 [facility] Potassium [Moles/Vol] 4.5 mmol/L 3.5-5.1 [facility] Sodium [Moles/Vol] 140 mmol/L 136-145 [facility] WBC (Bld) [#/Vol] 8.2 10*3/uL 4.4-11.0 [facility] Blood erythrocytes count (nu mber/volume)Ordered By: Dena Kwok on 07-10-2023 RBC (Bld) [#/Vol] 4.30 10*6/uL 4.2-5.4 [facility] Blood hemoglobin measurement (mass/volume)Ordered By: Dena Kwok on 07-10-2023 Hemoglobin (Bld) [Mass/Vol] 12.7 g/dL 12.0-15.0 [facility] Blood platelet mean volumeOr dered By: Dena Kwok on 07-10-2023 Platelet mean volume (Bld) [Entitic vol] 10.5 fL 6.2-12.0 [facility] Determination of erythrocyte mean corpuscular volume (MCV)Ordered By: Dena Kwok on 07-10-2023 MCV (RBC) [Entitic vol] 91.2 fL 81-99 [address] [place] Hematocrit Auto (Bld) [Volum e fraction]Ordered By: Dena Kwok on 07-10-2023 Hematocrit (Bld) [Volume fraction] 39.2 % 37-47 [facility] Laboratory - Chemistry and C hemistry - challengeOrdered By: Dena Kwok on 07-10-2023 CO2 [Moles/Vol] 23.0 mmol/L 21.0-32.0 [facility] Urea nitrogen/Creatinine [Mass ratio] 22.9 mg/mg 10-20 [facility] Laboratory - Hematology and Cell countsOrdered By: Dena Kwok on 07-10-2023 Erythrocyte distribution width (RBC) [Entitic vol] 45.8 fL 35.1-43.9 [facility] Erythrocyte distribution width (RBC) [Ratio] 13.7 % 11.6-14.6 [facility] MCH (RBC) [Entitic mass] 29.5 pg 27.0-32.0 [facility] MCHC Auto (RBC) [Mass/Vol]Or dered By: Dena Kwok on 07-10-2023 MCHC (RBC) [Mass/Vol] 32.4 g/dL 32-36 [facility] No Panel InformationOrdered By: Dena Kwok on 07-10-2023 Estimated GFR (MDRD) Amer 56 mL/min >60 [facility] Comment on above: GFR Calc Estimated GFR (MDRD) Non-Af Amer 46 mL/min >60 [facility] Comment on above: Non- GFR Calc Parathyroid Hormone (Intact) 80.8 pg/mL 18.4-80.1 [facility] Vitamin D 25-Hydroxy 61.3 ng/mL [facility] Comment on above: Vitamin D 25(OH) Sta tus Range Deficiency <20 ng/mL (50nmol/L) Insufficiency 20 - 30 ng/mL (50 - 75 nmol/L) Sufficiency 30 - 100 ng/mL (75 - 250 nmol/L) Toxicity >100 ng/mL (>250 nmol/L) Platelets bldOrdered By: Miguel Angel Kwok on 07-10-2023 Platelets (Bld) [#/Vol] 263 10*3/uL 150-450 [facility] Serum or plasma albumin brian urement (mass/volume)Ordered By: Dena Kwok on 07-10-2023 Albumin [Mass/Vol] 3.3 g/dL 3.2-5.0 [facility] Serum or plasma calcium brian urement (mass/volume)Ordered By: Dena Kwok on 07-10-2023 Calcium [Mass/Vol] 9.9 mg/dL 8.5-10.1 [facility] Serum or plasma creatinine m easurement (mass/volume)Ordered By: Dena Kwok on 07-10-2023 Creatinine [Mass/Vol] 1.18 mg/dL 0.55-1.02 [facility] Comment on above: The validity of the calculated GFR & GFRAA in patients over 70 years has not been determined. Clinical correlation is essential. Serum or plasma urea nitroge n measurement (mass/volume)Ordered By: Dena Kwok on 07-10-2023 Urea nitrogen [Mass/Vol] 27 mg/dL 7-18 [facility] Urine creatinine measurement (mass/volume)Ordered By: Dena Kwok on 07-10-2023 Creatinine (U) [Mass/Vol] 26.30 mg/dL NO RANGE EST. [facility] Urine protein measurement (m ass/volume)Ordered By: Dena Kwok on 07-10-2023 Protein (U) [Mass/Vol] 9.1 mg/dL 0.0-11.8 [facility] Urine protein/creatinine mas s ratioOrdered By: Dena Kwok on 07-10-2023 Protein/Creatinine (U) [Mass ratio] 346 mg/g CRE 0-200 [facility] Basophil percentageOrdered B y: Louise Suarez on 05-07-2023 Creatinine [Mass/Vol] 0.9 mg/dL 0.55-1.02 [facility] No Panel InformationOrdered By: Louise Suarez on 05-07-2023 Bedside Estimated GFR (eGFR) > 60.0000 mL/min >60 [facility] Absolute lymphocyte countOrd ered By: Socorro Ivan on 03-11-2023 Lymphocytes Auto (Unsp spec) [#/Vol] 2.42 10*3/uL 0.83-4.51 [facility] Basophil percentageOrdered B y: Socorro Ivan on 03-11-2023 Basophils/100 WBC (Bld) 0.7 % 0-1 [facility] Bilirubin [Mass/Vol] 0.60 mg/dL 0.20-1.00 [facility] Comment on above: For patients on eltr ombopag therapy, use of Dimension [place] TBIL is not recommended. Chloride [Moles/Vol] 110 mmol/L 98-107 [facility] Eosinophils/100 WBC (Bld) 2.5 % 0-5 [facility] Glucose [Mass/Vol] 79 mg/dL 74-106 [facility] Neutrophils (Bld) [#/Vol] 5.3 10*3/uL 2.0-7.7 [facility] Neutrophils/100 WBC (Bld) 60.3 % 47-70 [facility] Potassium [Moles/Vol] 4.5 mmol/L 3.5-5.1 [facility] Protein [Mass/Vol] 7.4 g/dL 6.4-8.2 [facility] Sodium [Moles/Vol] 141 mmol/L 136-145 [facility] WBC (Bld) [#/Vol] 8.7 10*3/uL 4.4-11.0 [facility] Blood erythrocytes count (nu mber/volume)Ordered By: Socorro Ivan on 03-11-2023 RBC (Bld) [#/Vol] 4.19 10*6/uL 4.2-5.4 [facility] Blood hemoglobin measurement (mass/volume)Ordered By: Socorro Ivan on 03-11-2023 Hemoglobin (Bld) [Mass/Vol] 12.4 g/dL 12.0-15.0 [facility] Blood lymphocytes/100 leukoc ytesOrdered By: Socorro Ivan on 03-11-2023 Lymphocytes/100 WBC (Bld) 27.7 % 19-41 [facility] Blood monocytes/100 leukocyt esOrdered By: Socorro Ivan on 03-11-2023 Monocytes/100 WBC (Bld) 8.5 % 0-10 [facility] [place] Blood platelet mean volumeOr dered By: Socorro Ivan on 03-11-2023 Platelet mean volume (Bld) [Entitic vol] 10.2 fL 6.2-12.0 [facility] Determination of erythrocyte mean corpuscular volume (MCV)Ordered By: Socorro Ivan on 03-11-2023 MCV (RBC) [Entitic vol] 90.7 fL 81-99 [address] [place] Hematocrit Auto (Bld) [Volum e fraction]Ordered By: Socorro Ivan on 03-11-2023 Hematocrit (Bld) [Volume fraction] 38.0 % 37-47 [facility] Laboratory - Chemistry and C hemistry - challengeOrdered By: [facility] on 03-11-2023 ALP [Catalytic activity/Vol] 81 U/L 45-117 [facility] ALT [Catalytic activity/Vol] 21 U/L 13-56 [facility] CO2 [Moles/Vol] 24.0 mmol/L 21.0-32.0 [facility] Globulin (S) [Mass/Vol] 3.9 g/dL 2.2-4.2 [place] Urea nitrogen/Creatinine [Mass ratio] 28.5 mg/mg 10-20 [facility] Laboratory - Hematology and Cell countsOrdered By: [facility] on 03-11-2023 Erythrocyte distribution width (RBC) [Entitic vol] 43.9 fL 35.1-43.9 [facility] Erythrocyte distribution width (RBC) [Ratio] 13.2 % 11.6-14.6 [facility] Immature granulocytes/100 WBC (Bld) 0.300 % 0.0-0.9 [facility] Comment on above: IG% - Immature Granu locytes (promyelocytes, myelocytes and metamyelocytes) > 1% indicates that a LEFT SHIFT is Present. MCH (RBC) [Entitic mass] 29.6 pg 27.0-32.0 [facility] Nucleated RBC/100 WBC (Bld) [Ratio] 0 % 0-5 [facility] MCHC Auto (RBC) [Mass/Vol]Or dered By: Socorro Ivan on 03-11-2023 MCHC (RBC) [Mass/Vol] 32.6 g/dL 32-36 [facility] No Panel InformationOrdered By: Socorro Ivan on 03-11-2023 Estimated GFR (MDRD) Amer 50 mL/min >60 [facility] Comment on above: GFR Calc Estimated GFR (MDRD) Non-Af Amer 41 mL/min >60 [facility] Comment on above: Non- GFR Calc Platelets bldOrdered By: Abhinav Ivan on 03-11-2023 Platelets (Bld) [#/Vol] 272 10*3/uL 150-450 [facility] Serum or plasma albumin brian urement (mass/volume)Ordered By: Socorro Ivan on 03-11-2023 Albumin [Mass/Vol] 3.5 g/dL 3.2-5.0 [facility] Serum or plasma albumin/glob ulin mass ratioOrdered By: Socorro Ivan on 03-11-2023 Albumin/Globulin [Mass ratio] 0.9 {ratio} 0.9-2.4 [facility] Serum or plasma calcium brian urement (mass/volume)Ordered By: Socorro Ivan on 03-11-2023 Calcium [Mass/Vol] 10.2 mg/dL 8.5-10.1 [facility] Serum or plasma creatinine m easurement (mass/volume)Ordered By: Socorro Ivan on 03-11-2023 Creatinine [Mass/Vol] 1.30 mg/dL 0.55-1.02 [facility] Comment on above: The validity of the calculated GFR & GFRAA in patients over 70 years has not been determined. Clinical correlation is essential. Serum or plasma urea nitroge n measurement (mass/volume)Ordered By: Socorro Ivan on 03-11-2023 Urea nitrogen [Mass/Vol] 37 mg/dL 7-18 [facility] Thin prep Papanicolaou smear with manual screeningOrdered By: Socorro Ivan on 03-11-2023 Thin prep Papanicolaou smear with manual screening 18 U/L 15-37 [facility] Thin prep Papanicolaou smear with manual screening 7 5-15 [facility] Basophil percentageOrdered B y: Dena Kwok on 02-10-2023 Chloride [Moles/Vol] 111 mmol/L 98-107 [facility] Glucose [Mass/Vol] 94 mg/dL 74-106 [facility] Potassium [Moles/Vol] 4.5 mmol/L 3.5-5.1 [facility] Sodium [Moles/Vol] 140 mmol/L 136-145 [facility] Laboratory - Chemistry and C hemistry - challengeOrdered By: Dena Kwok on 02-10-2023 CO2 [Moles/Vol] 25.0 mmol/L 21.0-32.0 [facility] Urea nitrogen/Creatinine [Mass ratio] 27.3 mg/mg 10-20 [facility] No Panel InformationOrdered By: Dena Kwok on 02-10-2023 Estimated GFR (MDRD) Amer 51 mL/min >60 [facility] Comment on above: GFR Calc Estimated GFR (MDRD) Non-Af Amer 42 mL/min >60 [facility] Comment on above: Non- GFR Calc Serum or plasma calcium brian urement (mass/volume)Ordered By: Dena Kwok on 02-10-2023 Calcium [Mass/Vol] 9.5 mg/dL 8.5-10.1 [facility] Serum or plasma creatinine m easurement (mass/volume)Ordered By: Dena Kwok on 02-10-2023 Creatinine [Mass/Vol] 1.28 mg/dL 0.55-1.02 [facility] Comment on above: The validity of the calculated GFR & GFRAA in patients over 70 years has not been determined. Clinical correlation is essential. Serum or plasma urea nitroge n measurement (mass/volume)Ordered By: Dena Kwok on 02-10-2023 Urea nitrogen [Mass/Vol] 35 mg/dL 7-18 [facility] Thin prep Papanicolaou smear with manual screeningOrdered By: Dena Kwok on 02-10-2023 Thin prep Papanicolaou smear with manual screening 4 5-15 [facility] Basophil percentageOrdered B y: Dena Kwok on 01-10-2023 Chloride [Moles/Vol] 110 mmol/L 98-107 [facility] Glucose [Mass/Vol] 74 mg/dL 74-106 [facility] Potassium [Moles/Vol] 4.8 mmol/L 3.5-5.1 [facility] Sodium [Moles/Vol] 137 mmol/L 136-145 [facility] Laboratory - Chemistry and C hemistry - challengeOrdered By: Dena Kwok on 01-10-2023 CO2 [Moles/Vol] 22.0 mmol/L 21.0-32.0 [facility] Urea nitrogen/Creatinine [Mass ratio] 35.9 mg/mg 10-20 [facility] No Panel InformationOrdered By: Dena Kwok on 01-10-2023 Estimated GFR (MDRD) Amer 50 mL/min >60 [facility] Comment on above: GFR Calc Estimated GFR (MDRD) Non-Af Amer 41 mL/min >60 [facility] Comment on above: Non- GFR Calc Serum or plasma calcium brian urement (mass/volume)Ordered By: Dena Kwok on 01-10-2023 Calcium [Mass/Vol] 10.2 mg/dL 8.5-10.1 [facility] Serum or plasma creatinine m easurement (mass/volume)Ordered By: Dena Kwok on 01-10-2023 Creatinine [Mass/Vol] 1.31 mg/dL 0.55-1.02 [facility] Comment on above: The validity of the calculated GFR & GFRAA in patients over 70 years has not been determined. Clinical correlation is essential. Serum or plasma urea nitroge n measurement (mass/volume)Ordered By: Dena Kwok on 01-10-2023 Urea nitrogen [Mass/Vol] 47 mg/dL 7-18 [facility] Thin prep Papanicolaou smear with manual screeningOrdered By: Dena Kwok on 01-10-2023 Thin prep Papanicolaou smear with manual screening 5 5-15 [facility] Basophil percentageOrdered B y: Dr. Kwok on 11-11-2022 Chloride [Moles/Vol] 112 mmol/L 98-107 [facility] Glucose [Mass/Vol] 95 mg/dL 74-106 [facility] Potassium [Moles/Vol] 4.5 mmol/L 3.5-5.1 [facility] Sodium [Moles/Vol] 139 mmol/L 136-145 [facility] Laboratory - Chemistry and C hemistry - challengeOrdered By: Dr. Kwok on 11-11-2022 CO2 [Moles/Vol] 23.0 mmol/L 21.0-32.0 [facility] Urea nitrogen/Creatinine [Mass ratio] 36.1 mg/mg 10-20 [facility] No Panel InformationOrdered By: Dr. Kwok on 11-11-2022 Estimated GFR (MDRD) Amer 44 mL/min >60 [facility] Comment on above: GFR Calc Estimated GFR (MDRD) Non-Af Amer 37 mL/min >60 [facility] Comment on above: Non- GFR Calc Serum or plasma calcium brian urement (mass/volume)Ordered By: Dr. Kwok on 11-11-2022 Calcium [Mass/Vol] 10.3 mg/dL 8.5-10.1 [facility] Serum or plasma creatinine m easurement (mass/volume)Ordered By: Dr. Kwok on 11-11-2022 Creatinine [Mass/Vol] 1.44 mg/dL 0.55-1.02 [facility] Comment on above: The validity of the calculated GFR & GFRAA in patients over 70 years has not been determined. Clinical correlation is essential. Serum or plasma urea nitroge n measurement (mass/volume)Ordered By: Dr. Kwok on 11-11-2022 Urea nitrogen [Mass/Vol] 52 mg/dL - [facility] Thin prep Papanicolaou smear with manual screeningOrdered By: Dr. Kwok on 11-11-2022 Thin prep Papanicolaou smear with manual screening 4 5-15 [facility] Basophil percentageOrdered B y: Dr. Kwok on 10-10-2022 Chloride [Moles/Vol] 105 mmol/L 98-107 [facility] Glucose [Mass/Vol] 64 mg/dL 74-106 [facility] Potassium [Moles/Vol] 4.3 mmol/L 3.5-5.1 [facility] Sodium [Moles/Vol] 139 mmol/L 136-145 [facility] Laboratory - Chemistry and C hemistry - challengeOrdered By: Dr. Kwok on 10-10-2022 CO2 [Moles/Vol] 25.0 mmol/L 21.0-32.0 [facility] Urea nitrogen/Creatinine [Mass ratio] 36.4 mg/mg 10-20 [facility] No Panel InformationOrdered By: Dr. Kwok on 10-10-2022 Estimated GFR (MDRD) Amer 38 mL/min >60 [facility] Comment on above: GFR Calc Estimated GFR (MDRD) Non-Af Amer 31 mL/min >60 [facility] Comment on above: Non- GFR Calc Serum or plasma calcium brian urement (mass/volume)Ordered By: Dr. Kwok on 10-10-2022 Calcium [Mass/Vol] 10.4 mg/dL 8.5-10.1 [facility] Serum or plasma creatinine m easurement (mass/volume)Ordered By: Dr. Kwok on 10-10-2022 Creatinine [Mass/Vol] 1.65 mg/dL 0.55-1.02 [facility] Comment on above: The validity of the calculated GFR & GFRAA in patients over 70 years has not been determined. Clinical correlation is essential. Serum or plasma urea nitroge n measurement (mass/volume)Ordered By: Dr. Kwok on 10-10-2022 Urea nitrogen [Mass/Vol] 60 mg/dL 7-18 [facility] Thin prep Papanicolaou smear with manual screeningOrdered By: Dr. Kwok on 10-10-2022 Thin prep Papanicolaou smear with manual screening 9 5-15 [facility] Basophil percentageOrdered B y: Dr. Whipple on 02-23-2023 Basophil percentage 77 mg/dL 74-106 [facility] Basophil percentage 135 mmol/L 136-145 [facility] Basophil percentage 4.6 mmol/L 3.5-5.1 [facility] Basophil percentage 105 mmol/L 98-107 [facility] Chloride [Moles/Vol] 105 mmol/L 98-107 [facility] Glucose [Mass/Vol] 77 mg/dL 74-106 [facility] Potassium [Moles/Vol] 4.6 mmol/L 3.5-5.1 [facility] Sodium [Moles/Vol] 135 mmol/L 136-145 [facility] Laboratory - Chemistry and C hemistry - challengeOrdered By: Dr. Whipple on 09-12-2022 CO2 [Moles/Vol] 22.0 mmol/L 21.0-32.0 [facility] Urea nitrogen/Creatinine [Mass ratio] 31.5 mg/mg 10-20 [facility] No Panel InformationOrdered By: Dr. Whipple on 09-12-2022 Estimated GFR (MDRD) Amer 37 mL/min >60 [facility] Comment on above: GFR Calc Estimated GFR (MDRD) Non-Af Amer 31 mL/min >60 [facility] Comment on above: Non- GFR Calc 31 mL/min >60 [facility] 37 mL/min >60 [facility] 31.5 RATIO 10-20 [facility] 22.0 mmol/L 21.0-32.0 [facility] Dehydroepiandrosterone Sulfate 90.4 ug/dL 13.9-142.8 [facility] Comment on above: Performed at: [facility] [employer] [address] [id number] Director: Miguel Garcia PhD, Phone: [phone] 90.4 ug/dL 13.9-142.8 [facility] Serum or plasma calcium brian urement (mass/volume)Ordered By: Dr. Whipple on 09-12-2022 Calcium [Mass/Vol] 10.5 mg/dL 8.5-10.1 [facility] Serum or plasma creatinine m easurement (mass/volume)Ordered By: Dr. Whipple on 09-12-2022 Creatinine [Mass/Vol] 1.68 mg/dL 0.55-1.02 [facility] Comment on above: The validity of the calculated GFR & GFRAA in patients over 70 years has not been determined. Clinical correlation is essential. Serum or plasma urea nitroge n measurement (mass/volume)Ordered By: Dr. Whipple on 09-12-2022 Urea nitrogen [Mass/Vol] 53 mg/dL 7-18 [facility] Thin prep Papanicolaou smear with manual screeningOrdered By: Dr. Whipple on 09-12-2022 Thin prep Papanicolaou smear with manual screening 8 5-15 [facility] Basophil percentageOrdered B y: Juani Maya on 08-08-2022 Basophil percentage 104 mg/dL 74-106 [facility] Basophil percentage 7.6 g/dL 6.4-8.2 [facility] Basophil percentage 2.4 mg/dL 2.5-4.9 [facility] Basophil percentage 0.90 mg/dL 0.20-1.00 [facility] Basophil percentage 139 mmol/L 136-145 [facility] Basophil percentage 4.3 mmol/L 3.5-5.1 [facility] Basophil percentage 105 mmol/L 98-107 [facility] Basophils (Bld) [#/Vol] 10.5 10*3/uL 4.4-11.0 [facility] Bilirubin [Mass/Vol] 0.90 mg/dL 0.20-1.00 [facility] Comment on above: For patients on eltr ombopag therapy, use of Dimension [place] TBIL is not recommended. Chloride [Moles/Vol] 105 mmol/L 98-107 [facility] Glucose [Mass/Vol] 104 mg/dL 74-106 [facility] Comment on above: Fasting Glucose resu lt from 100 to 125 mg/dL suggests IMPAIRED HOMEOSTASIS per A.D.A. criteria. Potassium [Moles/Vol] 4.3 mmol/L 3.5-5.1 [facility] Protein [Mass/Vol] 7.6 g/dL 6.4-8.2 [facility] Sodium [Moles/Vol] 139 mmol/L 136-145 [facility] WBC (Bld) [#/Vol] 10.5 10*3/uL 4.4-11.0 [facility] Blood erythrocytes count (nu mber/volume)Ordered By: Juani Maya on 08-08-2022 RBC (Bld) [#/Vol] 4.60 10*6/uL 4.2-5.4 [facility] Blood hemoglobin measurement (mass/volume)Ordered By: Juani Maya on 08-08-2022 Hemoglobin (Bld) [Mass/Vol] 13.5 g/dL 12.0-15.0 [facility] Blood platelet mean volumeOr dered By: Juani Maya on 08-08-2022 Platelet mean volume (Bld) [Entitic vol] 10.9 fL 6.2-12.0 [facility] Determination of erythrocyte mean corpuscular volume (MCV)Ordered By: Juani Maya on 08-08-2022 MCV (RBC) [Entitic vol] 88.9 fL 81-99 [place] Hematocrit Auto (Bld) [Volum e fraction]Ordered By: Juani Maya on 08-08-2022 Hematocrit (Bld) [Volume fraction] 40.9 % 37-47 [facility] Laboratory - Chemistry and C hemistry - challengeOrdered By: Monroe Zulma on 08-08-2022 ALP [Catalytic activity/Vol] 67 U/L 45-117 [facility] ALT [Catalytic activity/Vol] 30 U/L 13-56 [facility] CO2 [Moles/Vol] 25.0 mmol/L 21.0-32.0 [facility] Globulin (S) [Mass/Vol] 4.0 g/dL 2.2-4.2 [facility] [place] Urea nitrogen/Creatinine [Mass ratio] 21.9 mg/mg 10-20 [facility] Laboratory - Hematology and Cell countsOrdered By: Juani Maya on 08-08-2022 Erythrocyte distribution width (RBC) [Entitic vol] 43.4 fL 35.1-43.9 [facility] Erythrocyte distribution width (RBC) [Ratio] 13.2 % 11.6-14.6 [facility] MCH (RBC) [Entitic mass] 29.3 pg 27.0-32.0 [facility] MCHC Auto (RBC) [Mass/Vol]Or dered By: Juani Maya on 08-08-2022 MCHC (RBC) [Mass/Vol] 33.0 g/dL 32-36 [facility] No Panel InformationOrdered By: Juani Maya on 08-08-2022 Estimated GFR (MDRD) Amer 37 mL/min >60 [facility] Comment on above: GFR Calc Estimated GFR (MDRD) Non-Af Amer 31 mL/min >60 [facility] Comment on above: Non- GFR Calc Parathyroid Hormone (Intact) 79.7 pg/mL 18.4-80.1 [facility] Vitamin D 25-Hydroxy 81.2 ng/mL [facility] Comment on above: Vitamin D 25(OH) Sta tus Range Deficiency <20 ng/mL (50nmol/L) Insufficiency 20 - 30 ng/mL (50 - 75 nmol/L) Sufficiency 30 - 100 ng/mL (75 - 250 nmol/L) Toxicity >100 ng/mL (>250 nmol/L) 29.3 pg 27.0-32.0 [facility] 13.2 % 11.6-14.6 [facility] 43.4 fl 35.1-43.9 [facility] 31 mL/min >60 [facility] 37 mL/min >60 [facility] 21.9 RATIO 10-20 [facility] 4.0 g/dL 2.2-4.2 [facility] 67 U/L 45-117 [facility] 30 U/L 13-56 [facility] 25.0 mmol/L 21.0-32.0 [facility] 81.2 ng/mL [facility] 79.7 pg/mL 18.4-80.1 [facility] Platelets bldOrdered By: Reji Maya on 08-08-2022 Platelets (Bld) [#/Vol] 251 10*3/uL 150-450 [facility] Serum or plasma albumin brian urement (mass/volume)Ordered By: Juani Maya on 08-08-2022 Albumin [Mass/Vol] 3.6 g/dL 3.2-5.0 [facility] Serum or plasma albumin/glob ulin mass ratioOrdered By: Juani Maya on 08-08-2022 Albumin/Globulin [Mass ratio] 0.9 {ratio} 0.9-2.4 [facility] Serum or plasma calcium brian urement (mass/volume)Ordered By: Juani Maya on 08-08-2022 Calcium [Mass/Vol] 10.3 mg/dL 8.5-10.1 [facility] Serum or plasma creatinine m easurement (mass/volume)Ordered By: Juani Maya on 08-08-2022 Creatinine [Mass/Vol] 1.69 mg/dL 0.55-1.02 [facility] Comment on above: The validity of the calculated GFR & GFRAA in patients over 70 years has not been determined. Clinical correlation is essential. Serum or plasma urea nitroge n measurement (mass/volume)Ordered By: Juani Maya on 08-08-2022 Urea nitrogen [Mass/Vol] 37 mg/dL 7-18 [facility] Thin prep Papanicolaou smear with manual screeningOrdered By: Juani Maya on 08-08-2022 Thin prep Papanicolaou smear with manual screening 20 U/L 15-37 [facility] Thin prep Papanicolaou smear with manual screening 9 5-15 [facility] Urine creatinine measurement (mass/volume)Ordered By: Juani Maya on 08-08-2022 Creatinine (U) [Mass/Vol] 29.90 mg/dL NO RANGE EST. [facility] Urine protein measurement (m ass/volume)Ordered By: Juani Maya on 08-08-2022 Protein (U) [Mass/Vol] mg/dL 0.0-11.8 [facility] Urine protein/creatinine mas s ratioOrdered By: Juani Maya on 08-08-2022 Protein/Creatinine (U) [Mass ratio] TNP [facility] Comment on above: Test not performed METABOLIC PANEL, BASIC (2619 0)Ordered By: Gun Synchronizer on 07-30-2022 Calcium [Mass/Vol] 10.9 mg/dL Abnormal 8.7-10.3 [facility] Internal Medicine; [facility] Work Phone: Comment on above: PATIENT NOT FASTINGP ERFORMED BY: HALEIGH [facility] [id number] [address]Dublin [place] [id number] Chloride [Moles/Vol] 97 mmol/L Normal 96-106 [facility] re[facility]ive [facility]; [facility] Work Phone: Comment on above: PATIENT NOT FASTINGP ERFORMED BY: CB [facility] [id number] [address]Dublin [place] [id number] CO2 [Moles/Vol] 21 mmol/L Normal 20-29 Comprehen s[facility]; [facility] Work Phone: Comment on above: PATIENT NOT FASTINGP ERFORMED BY: [facility] [id number] Holguin RoadAlleghany Health [id number] Creatinine [Mass/Vol] 1.51 mg/dL Abnormal 0.57-1.00 [facility] prehensive Internal Medicine; [facility] Work Phone: Comment on above: PATIENT NOT FASTINGP ERFORMED BY: [facility] [id number] [facility] [id number] GFR/1.73 sq M.predicted among non-blacks MDRD (S/P/Bld) [Vol rate/Area] 33 mL/min/{1.73_m2} Abnormal Comprehensiv e Internal Medicine; [facility] Work Phone: Comment on above: PATIENT NOT FASTINGP ERFORMED BY: HALEIGH [facility] [id number] [facility] [id number] Glucose [Mass/Vol] 78 mg/dL Normal 70-99 [facility] Internal Medicine; [facility] Work Phone: Comment on above: PATIENT NOT FASTINGP ERFORMED BY: CB [facility] [id number] RoadBlue Ridge Regional Hospitalin [place] [id number] Potassium [Moles/Vol] 5.3 mmol/L Abnormal 3.5-5.2 Com prehensive [facility] Medicine; [facility] Work Phone: Comment on above: PATIENT NOT FASTINGP ERFORMED BY: [facility] [id number] [address] RoadDuin [place] [id number] Sodium [Moles/Vol] 137 mmol/L Normal 134-144 [facility] Internal Medicine; [facility] Work Phone: Comment on above: PATIENT NOT FASTINGP ERFORMED BY: HALEIGH [facility] [id number] [facility] [id number] Urea nitrogen [Mass/Vol] 34 mg/dL Abnormal 8-27 [facility]; [facility] Work Phone: Comment on above: PATIENT NOT FASTINGP ERFORMED BY: CB [facility] [id number] [facility] [id number] Urea nitrogen/Creatinine [Mass ratio] 23 mg/mg Normal 12-28 [facility]; [facility] Work Phone: Comment on above: PATIENT NOT FASTINGP ERFORMED BY: HALEIGH [facility] [id number] [facility] [id number] Basophil percentageOrdered B y: Dr. Lal on 07-23-2022 Basophil percentage 124 mg/dL 74-106 [facility] Basophil percentage 136 mmol/L 136-145 [facility] Basophil percentage 4.3 mmol/L 3.5-5.1 [facility] Basophil percentage 104 mmol/L 98-107 [facility] Basophils (Bld) [#/Vol] 11.2 10*3/uL 4.4-11.0 [facility] Chloride [Moles/Vol] 104 mmol/L 98-107 [facility] Glucose [Mass/Vol] 124 mg/dL 74-106 [facility] Comment on above: Fasting Glucose resu lt from 100 to 125 mg/dL suggests IMPAIRED HOMEOSTASIS per A.D.A. criteria. Potassium [Moles/Vol] 4.3 mmol/L 3.5-5.1 [facility] Sodium [Moles/Vol] 136 mmol/L 136-145 [facility] WBC (Bld) [#/Vol] 11.2 10*3/uL 4.4-11.0 [facility] Blood erythrocytes count (nu mber/volume)Ordered By: Dr. Lal on 07-23-2022 RBC (Bld) [#/Vol] 4.28 10*6/uL 4.2-5.4 [facility] Blood hemoglobin measurement (mass/volume)Ordered By: Dr. Lal on 07-23-2022 Hemoglobin (Bld) [Mass/Vol] 12.5 g/dL 12.0-15.0 [facility] Blood platelet mean volumeOr dered By: Dr. Lal on 07-23-2022 Platelet mean volume (Bld) [Entitic vol] 11.1 fL 6.2-12.0 [facility] Determination of erythrocyte mean corpuscular volume (MCV)Ordered By: Dr. Lal on 07-23-2022 MCV (RBC) [Entitic vol] 89.5 fL 81-99 [place] Hematocrit Auto (Bld) [Volum e fraction]Ordered By: Dr. Lal on 07-23-2022 Hematocrit (Bld) [Volume fraction] 38.3 % 37-47 [facility] Laboratory - Chemistry and C hemistry - challengeOrdered By: Dr. Lal on 07-23-2022 CO2 [Moles/Vol] 25.0 mmol/L 21.0-32.0 [facility] Urea nitrogen/Creatinine [Mass ratio] 21.3 mg/mg 10-20 [facility] Laboratory - Hematology and Cell countsOrdered By: Dr. Lal on 07-23-2022 Erythrocyte distribution width (RBC) [Entitic vol] 44.3 fL 35.1-43.9 [facility] Erythrocyte distribution width (RBC) [Ratio] 13.5 % 11.6-14.6 [facility] MCH (RBC) [Entitic mass] 29.2 pg 27.0-32.0 [facility] MCHC Auto (RBC) [Mass/Vol]Or dered By: Dr. Lal on 07-23-2022 MCHC (RBC) [Mass/Vol] 32.6 g/dL 32-36 [facility] No Panel InformationOrdered By: Dr. Lal on 07-23-2022 Estimated GFR (MDRD) Amer 41 mL/min >60 [facility] Comment on above: GFR Calc Estimated GFR (MDRD) Non-Af Amer 34 mL/min >60 [facility] Comment on above: Non- GFR Calc 29.2 pg 27.0-32.0 [facility] 13.5 % 11.6-14.6 [facility] 44.3 fl 35.1-43.9 [facility] 34 mL/min >60 [facility] 41 mL/min >60 [facility] 21.3 RATIO 10-20 [facility] 25.0 mmol/L 21.0-32.0 [facility] Platelets bldOrdered By: Dr. Lal on 07-23-2022 Platelets (Bld) [#/Vol] 282 10*3/uL 150-450 [facility] Serum or plasma calcium brian urement (mass/volume)Ordered By: Dr. Lal on 07-23-2022 Calcium [Mass/Vol] 10.8 mg/dL 8.5-10.1 [facility] Serum or plasma creatinine m easurement (mass/volume)Ordered By: Dr. Lal on 07-23-2022 Creatinine [Mass/Vol] 1.55 mg/dL 0.55-1.02 [facility] Comment on above: The validity of the calculated GFR & GFRAA in patients over 70 years has not been determined. Clinical correlation is essential. Serum or plasma urea nitroge n measurement (mass/volume)Ordered By: Dr. Lal on 07-23-2022 Urea nitrogen [Mass/Vol] 33 mg/dL 7-18 [facility] Thin prep Papanicolaou smear with manual screeningOrdered By: Dr. Lal on 07-23-2022 Thin prep Papanicolaou smear with manual screening 7 5-15 [facility] Absolute lymphocyte countOrd ered By: Dr. Luu on 07-17-2022 Lymphocytes Auto (Unsp spec) [#/Vol] 2.70 10*3/uL 0.83-4.51 [facility] Basophil percentageOrdered B y: Dr. Luu on 07-17-2022 Basophil percentage 105 mg/dL 74-106 [facility] Basophil percentage 137 mmol/L 136-145 [facility] Basophil percentage 4.6 mmol/L 3.5-5.1 [facility] Basophil percentage 108 mmol/L 98-107 [facility] Basophils (Bld) [#/Vol] 9.4 10*3/uL 4.4-11.0 [facility] Basophils (Bld) [#/Vol] 5.4 10*3/uL 2.0-7.7 [facility] Basophils/100 WBC (Bld) 0.5 % 0-1 [place] Basophils/100 WBC (Bld) 57.7 % 47-70 [place] Basophils/100 WBC (Bld) 3.5 % 0-5 [place] Chloride [Moles/Vol] 108 mmol/L 98-107 [facility] Eosinophils/100 WBC (Bld) 3.5 % 0-5 [facility] Glucose [Mass/Vol] 105 mg/dL 74-106 [facility] Comment on above: Fasting Glucose resu lt from 100 to 125 mg/dL suggests IMPAIRED HOMEOSTASIS per A.D.A. criteria. Neutrophils (Bld) [#/Vol] 5.4 10*3/uL 2.0-7.7 [facility] Neutrophils/100 WBC (Bld) 57.7 % 47-70 [facility] Potassium [Moles/Vol] 4.6 mmol/L 3.5-5.1 [facility] Sodium [Moles/Vol] 137 mmol/L 136-145 [facility] WBC (Bld) [#/Vol] 9.4 10*3/uL 4.4-11.0 [facility] Blood erythrocytes count (nu mber/volume)Ordered By: Dr. Luu on 07-17-2022 RBC (Bld) [#/Vol] 3.89 10*6/uL 4.2-5.4 [facility] Blood hemoglobin measurement (mass/volume)Ordered By: Dr. Luu on 07-17-2022 Hemoglobin (Bld) [Mass/Vol] 11.6 g/dL 12.0-15.0 [facility] Blood lymphocytes/100 leukoc ytesOrdered By: Dr. Luu on 07-17-2022 Lymphocytes/100 WBC (Bld) 28.6 % 19-41 [facility] Blood monocytes/100 leukocyt esOrdered By: Dr. Luu on 07-17-2022 Monocytes/100 WBC (Bld) 9.4 % 0-10 [facility] Blood platelet mean volumeOr dered By: Dr. Luu on 07-17-2022 Platelet mean volume (Bld) [Entitic vol] 10.1 fL 6.2-12.0 [facility] Determination of erythrocyte mean corpuscular volume (MCV)Ordered By: Dr. Luu on 07-17-2022 MCV (RBC) [Entitic vol] 90.7 fL 81-99 [place] Glucose Glucometer (BldC) [M ass/Vol]Ordered By: Dr. Luu on 07-17-2022 Glucose [Mass/Vol] 126 mg/dL 74-106 [facility] Comment on above: MANAGEMENT OF PATIEN T CARE PER NURSING PROTOCOL Hematocrit Auto (Bld) [Volum e fraction]Ordered By: Dr. Luu on 07-17-2022 Hematocrit (Bld) [Volume fraction] 35.3 % 37-47 [facility] Laboratory - Chemistry and C hemistry - challengeOrdered By: Dr. Luu on 07-17-2022 CO2 [Moles/Vol] 25.0 mmol/L 21.0-32.0 [facility] Urea nitrogen/Creatinine [Mass ratio] 29.3 mg/mg 10-20 [facility] Laboratory - Hematology and Cell countsOrdered By: Dr. Luu on 07-17-2022 Erythrocyte distribution width (RBC) [Entitic vol] 45.0 fL 35.1-43.9 [facility] Erythrocyte distribution width (RBC) [Ratio] 13.3 % 11.6-14.6 [facility] Immature granulocytes/100 WBC (Bld) 0.300 % 0.0-0.9 [facility] Comment on above: IG% - Immature Granu locytes (promyelocytes, myelocytes and metamyelocytes) > 1% indicates that a LEFT SHIFT is Present. MCH (RBC) [Entitic mass] 29.8 pg 27.0-32.0 [facility] Nucleated RBC/100 WBC (Bld) [Ratio] 0 % 0-5 [facility] MCHC Auto (RBC) [Mass/Vol]Or dered By: Dr. Luu on 07-17-2022 MCHC (RBC) [Mass/Vol] 32.9 g/dL 32-36 [facility] No Panel InformationOrdered By: Dr. Luu on 07-17-2022 Estimated Creatinine Clearance Calc 25.23 ml/min [facility] Estimated GFR (MDRD) Amer 53 mL/min >60 [facility] Comment on above: GFR Calc Estimated GFR (MDRD) Non-Af Amer 44 mL/min >60 [facility] Comment on above: Non- GFR Calc 29.8 pg 27.0-32.0 [facility] 13.3 % 11.6-14.6 [facility] 45.0 fl 35.1-43.9 [facility] 0.300 % 0.0-0.9 [facility] 0 % 0-5 [facility] 44 mL/min >60 [facility] 53 mL/min >60 [facility] 25.23 ml/min [facility] 29.3 RATIO 10-20 [facility] 25.0 mmol/L 21.0-32.0 [facility] Platelets bldOrdered By: Dr. Luu on 07-17-2022 Platelets (Bld) [#/Vol] 218 10*3/uL 150-450 [facility] Serum or plasma calcium brian urement (mass/volume)Ordered By: Dr. Luu on 07-17-2022 Calcium [Mass/Vol] 9.5 mg/dL 8.5-10.1 [facility] Serum or plasma creatinine m easurement (mass/volume)Ordered By: Dr. Luu on 07-17-2022 Creatinine [Mass/Vol] 1.23 mg/dL 0.55-1.02 [facility] Comment on above: The validity of the calculated GFR & GFRAA in patients over 70 years has not been determined. Clinical correlation is essential. Serum or plasma urea nitroge n measurement (mass/volume)Ordered By: Dr. Luu on 07-17-2022 Urea nitrogen [Mass/Vol] 36 mg/dL 7-18 [facility] Thin prep Papanicolaou smear with manual screeningOrdered By: Dr. Luu on 07-17-2022 Thin prep Papanicolaou smear with manual screening 4 5-15 [facility] Basophil percentageOrdered B y: Dr. Luu on 07-16-2022 Basophil percentage 3.2 mg/dL 2.5-4.9 [facility] Laboratory - Chemistry and C hemistry - challengeOrdered By: Dr. Luu on 07-16-2022 Magnesium [Mass/Vol] 2.6 mg/dL 1.6-2.6 [facility] No Panel InformationOrdered By: Dr. Luu on 07-16-2022 2.6 mg/dL 1.6-2.6 [facility] Basophil percentageOrdered B y: Dr. Mishra on 07-14-2022 Basophil percentage 6.4 g/dL 6.4-8.2 [facility] Basophil percentage 0.90 mg/dL 0.20-1.00 [facility] Bilirubin [Mass/Vol] 0.90 mg/dL 0.20-1.00 [facility] Comment on above: For patients on eltr ombopag therapy, use of Dimension [place] TBIL is not recommended. Protein [Mass/Vol] 6.4 g/dL 6.4-8.2 [facility] Laboratory - Chemistry and C hemistry - challengeOrdered By: Dr. Mishra on 07-14-2022 ALP [Catalytic activity/Vol] 61 U/L [facility] ALT [Catalytic activity/Vol] 20 U/L [facility] Globulin (S) [Mass/Vol] 3.5 g/dL 2.2-4.2 [facility] No Panel InformationOrdered By: Dr. Mishra on 07-14-2022 3.5 g/dL 2.2-4.2 [facility] 61 U/L [facility] 20 U/L [facility] Serum or plasma albumin brian urement (mass/volume)Ordered By: Dr. Mishra on 07-14-2022 Albumin [Mass/Vol] 2.9 g/dL 3.2-5.0 [facility] Serum or plasma albumin/glob ulin mass ratioOrdered By: Dr. Mishra on 07-14-2022 Albumin/Globulin [Mass ratio] 0.8 {ratio} 0.9-2.4 [facility] Thin prep Papanicolaou smear with manual screeningOrdered By: Dr. Mishra on 07-14-2022 Thin prep Papanicolaou smear with manual screening 13 U/L 15 [facility] Absolute lymphocyte counton 07-13-2022 Lymphocytes Auto (Unsp spec) [#/Vol] 3.16 10*3/uL 0.83-4.51 [facility] Work Phone: Basophil percentageon 2021 Potassium [Moles/Vol] 4.8 mmol/L 3.5-5.1 [facility] Work Phone: Comment on above: Moderate Hemolysis, Result may be falsely increased. Basophils/100 WBC (Bld) 0.9 % 0-1 [facility] [place] Work Phone: Bilirubin [Mass/Vol] 0.80 mg/dL 0.20-1.00 [facility] Work Phone: Comment on above: For patients on eltr ombopag therapy, use of Dimension [place] TBIL is not recommended. Chloride [Moles/Vol] 105 mmol/L 98-107 [facility] Work Phone: Eosinophils/100 WBC (Bld) 2.7 % 0-5 [facility] Work Phone: Glucose [Mass/Vol] 101 mg/dL 74-106 [facility] Work Phone: Comment on above: Fasting Glucose resu lt from 100 to 125 mg/dL suggests IMPAIRED HOMEOSTASIS per A.D.A. criteria. Neutrophils (Bld) [#/Vol] 4.5 10*3/uL 2.0-7.7 [facility] Work Phone: Neutrophils/100 WBC (Bld) 51.9 % 47-70 [facility] Work Phone: Protein [Mass/Vol] 7.4 g/dL 6.4-8.2 [facility] Work Phone: Sodium [Moles/Vol] 138 mmol/L 136-145 [facility] Work Phone: WBC (Bld) [#/Vol] 8.7 10*3/uL 4.4-11.0 [facility] Work Phone: Basophil percentageOrdered B y: Dr. Davila on 07-13-2022 Basophil percentage 0 SEEN /hpf 0-5 [facility] Bilirubin Test strip Ql (U)O rdered By: Dr. Davila on 07-13-2022 Bilirubin Ql (U) Negative Negative [facility] Blood erythrocytes count (nu mber/volume)on 07-13-2022 RBC (Bld) [#/Vol] 4.42 10*6/uL 4.2-5.4 [facility] Work Phone: Blood hemoglobin measurement (mass/volume)on 07-13-2022 Hemoglobin (Bld) [Mass/Vol] 13.1 g/dL 12.0-15.0 [facility] Work Phone: Blood lymphocytes/100 leukoc yteson 07-13-2022 Lymphocytes/100 WBC (Bld) 36.5 % 19-41 [facility] Work Phone: Blood monocytes/100 leukocyt eson 07-13-2022 Monocytes/100 WBC (Bld) 7.9 % 0-10 [facility] [place] Work Phone: Blood platelet mean volumeon 07-13-2022 Platelet mean volume (Bld) [Entitic vol] 11.1 fL 6.2-12.0 [facility] Work Phone: Determination of erythrocyte mean corpuscular volume (MCV)on 07-13-2022 MCV (RBC) [Entitic vol] 90.0 fL 81-99 [place] Work Phone: Hematocrit Auto (Bld) [Volum e fraction]on 07-13-2022 Hematocrit (Bld) [Volume fraction] 39.8 % 37-47 [facility] Work Phone: Influenza virus A and B and SARS-CoV-2 (COVID-19) Ag panel - Upper respiratory specimOrdered By: Dr. Davila on 07-13-2022 SARS-CoV-2 (COVID-19) RNA KAYLIE+probe Ql (Resp) [facility] Ketones Test strip Ql (U)Ord ered By: Dr. Davila on 07-13-2022 Ketones Ql (U) Negative Negative [facility] Laboratory - Chemistry and C hemistry - challengeon 07-13-2022 ALP [Catalytic activity/Vol] 69 U/L 45-117 [facility] Work Phone: ALT [Catalytic activity/Vol] 25 U/L 13-56 [facility] Work Phone: CO2 [Moles/Vol] 27.0 mmol/L 21.0-32.0 [facility] Work Phone: Globulin (S) [Mass/Vol] 4.1 g/dL 2.2-4.2 [place] Work Phone: Urea nitrogen/Creatinine [Mass ratio] 23.4 mg/mg 10-20 [facility] Work Phone: Laboratory - Chemistry and C hemistry - challengeOrdered By: Dr. Davila on 07-13-2022 Lipase [Catalytic activity/Vol] 127 U/L 73-393 [facility] Laboratory - Hematology and Cell countson 07-13-2022 Erythrocyte distribution width (RBC) [Entitic vol] 44.9 fL 35.1-43.9 [facility] Work Phone: Erythrocyte distribution width (RBC) [Ratio] 13.4 % 11.6-14.6 [facility] Work Phone: Immature granulocytes/100 WBC (Bld) 0.100 % 0.0-0.9 [facility] Work Phone: Comment on above: IG% - Immature Granu locytes (promyelocytes, myelocytes and metamyelocytes) > 1% indicates that a LEFT SHIFT is Present. MCH (RBC) [Entitic mass] 29.6 pg 27.0-32.0 [facility] Work Phone: Nucleated RBC/100 WBC (Bld) [Ratio] 0 % 0-5 [facility] Work Phone: MCHC Auto (RBC) [Mass/Vol]on 07-13-2022 MCHC (RBC) [Mass/Vol] 32.9 g/dL 32-36 [facility] Work Phone: Mucus LM Ql (Urine sed)Order ed By: Dr. Davila on 07-13-2022 Mucus Ql (Urine sed) 0 SEEN /hpf [facility] Nitrite Test strip Ql (U)Ord ered By: Dr. Davila on 07-13-2022 Nitrite Ql (U) Negative Negative [facility] No Panel Informationon 07-13 Estimated Creatinine Clearance Calc 24.25 ml/min [facility] Work Phone: Estimated GFR (MDRD) Amer 51 mL/min >60 [facility] Work Phone: Comment on above: GFR Calc Estimated GFR (MDRD) Non-Af Amer 42 mL/min >60 [facility] Work Phone: Comment on above: Non- GFR Calc No Panel InformationOrdered By: Dr. Davila on 07-13-2022 Troponin I High Sensitivity 15 pg/mL 3.0-54.0 [facility] Comment on above: Please Note: New Sue t Units and Gender Specific Reference Ranges. For more information see Policy Stat Procedure [place] High Sensitivity Troponin (TNIH) and attachments. 127 U/L 73-393 [facility] 15 pg/mL 3.0-54.0 [facility] Platelets bldon 07-13-2022 Platelets (Bld) [#/Vol] 271 10*3/uL 150-450 [facility] Work Phone: Protein Test strip Ql (U)Ord ered By: Dr. Davila on 07-13-2022 Protein Ql (U) Negative Negative [facility] Serum or plasma albumin brain urement (mass/volume)on 07-13-2022 Albumin [Mass/Vol] 3.3 g/dL 3.2-5.0 [facility] Work Phone: Serum or plasma albumin/glob ulin mass ratioon 07-13-2022 Albumin/Globulin [Mass ratio] 0.8 {ratio} 0.9-2.4 [facility] Work Phone: Serum or plasma calcium brian urement (mass/volume)on 07-13-2022 Calcium [Mass/Vol] 10.3 mg/dL 8.5-10.1 [facility] Work Phone: Serum or plasma creatinine m easurement (mass/volume)on 07-13-2022 Creatinine [Mass/Vol] 1.28 mg/dL 0.55-1.02 [facility] Work Phone: Comment on above: The validity of the calculated GFR & GFRAA in patients over 70 years has not been determined. Clinical correlation is essential. Serum or plasma urea nitroge n measurement (mass/volume)on 07-13-2022 Urea nitrogen [Mass/Vol] 30 mg/dL 7-18 [facility] Work Phone: Squamous epithelial cells de tection in urine sediment by light microscopyOrdered By: Dr. Davila on 07-13-2022 Epithelial cells.squamous LM Ql (Urine sed) 0 SEEN /hpf 5-10 [facility] Thin prep Papanicolaou smear with manual screeningon 07-13-2022 Thin prep Papanicolaou smear with manual screening 19 U/L 15-37 [facility] Work Phone: Comment on above: Slight Hemolysis, Re sult may be falsely increased. Thin prep Papanicolaou smear with manual screening 6 5-15 [facility] Work Phone: Urine blood detectionOrdered By: Dr. Davila on 07-13-2022 RBC Ql (U) Negative Negative [facility] RBC Ql (U) 0 SEEN /hpf 0-5 [facility] Urine clarityOrdered By: Dr. Davila on 07-13-2022 Clarity (U) Clear Clear [facility] Urine color determinationOrd ered By: Dr. Davila on 07-13-2022 Color (U) Straw Yellow [facility] Urine glucose detectionOrder ed By: Dr. Davila on 07-13-2022 Glucose Ql (U) Normal mg/dl Normal [facility] Urine leukocyte esterase det ection by dipstickOrdered By: Dr. Davila on 07-13-2022 Leukocyte esterase Test strip Ql (U) Negative Negative [facility] Urine pHOrdered By: Dr. Heatl mccoy on 07-13-2022 pH (U) 7.0 [pH] 5.0 - 8.0 [facility] Urine sediment bacteria coun t by microscopy (number/high power field)Ordered By: Dr. Davila on 07-13-2022 Bacteria LM.HPF (Urine sed) [#/Area] 0 /[HPF] None Seen [facility] Urine specific gravity measu rementOrdered By: Dr. Davila on 07-13-2022 Specific gravity (U) [Rel density] 1.005 1.002-1.03 0 [facility] Urobilinogen Auto test strip Ql (U)Ordered By: Dr. Davila on 07-13-2022 Urobilinogen Ql (U) Normal mg/dl Normal [facility] [facility] Absolute lymphocyte countOrd ered By: Dr. Gamez on 07-07-2022 Lymphocytes Auto (Unsp spec) [#/Vol] 2.93 10*3/uL 0.83-4.51 [facility] Basophil percentageOrdered B y: Dr. Gamez on 07-07-2022 Basophil percentage 115 mg/dL 74-106 [facility] Basophil percentage 136 mmol/L 136-145 [facility] Basophil percentage 4.0 mmol/L 3.5-5.1 [facility] Basophil percentage 101 mmol/L 98-107 [facility] Basophils (Bld) [#/Vol] 8.1 10*3/uL 4.4-11.0 [facility] Basophils (Bld) [#/Vol] 3.9 10*3/uL 2.0-7.7 [facility] Basophils/100 WBC (Bld) 0.7 % 0-1 [place] Basophils/100 WBC (Bld) 47.7 % 47-70 [facility] Basophils/100 WBC (Bld) 4.0 % 0-5 [facility] Chloride [Moles/Vol] 101 mmol/L 98-107 [facility] Eosinophils/100 WBC (Bld) 4.0 % 0-5 [facility] Glucose [Mass/Vol] 115 mg/dL 74-106 [facility] Comment on above: Fasting Glucose resu lt from 100 to 125 mg/dL suggests IMPAIRED HOMEOSTASIS per A.D.A. criteria. Neutrophils (Bld) [#/Vol] 3.9 10*3/uL 2.0-7.7 [facility] Neutrophils/100 WBC (Bld) 47.7 % 47-70 [facility] Potassium [Moles/Vol] 4.0 mmol/L 3.5-5.1 [facility] Sodium [Moles/Vol] 136 mmol/L 136-145 [facility] WBC (Bld) [#/Vol] 8.1 10*3/uL 4.4-11.0 [facility] Blood erythrocytes count (nu mber/volume)Ordered By: Dr. Gamez on 07-07-2022 RBC (Bld) [#/Vol] 3.95 10*6/uL 4.2-5.4 [facility] Blood hemoglobin measurement (mass/volume)Ordered By: Dr. Gamez on 07-07-2022 Hemoglobin (Bld) [Mass/Vol] 11.6 g/dL 12.0-15.0 [facility] Blood lymphocytes/100 leukoc ytesOrdered By: Dr. Gamez on 07-07-2022 Lymphocytes/100 WBC (Bld) 36.3 % 19-41 [facility] Blood monocytes/100 leukocyt esOrdered By: Dr. Gamez on 07-07-2022 Monocytes/100 WBC (Bld) 10.9 % 0-10 [facility] [place] Blood platelet mean volumeOr dered By: Dr. Gamez on 07-07-2022 Platelet mean volume (Bld) [Entitic vol] 10.4 fL 6.2-12.0 [facility] Determination of erythrocyte mean corpuscular volume (MCV)Ordered By: Dr. Gamez on 07-07-2022 MCV (RBC) [Entitic vol] 90.6 fL 81-99 [place] Glucose Glucometer (dC) [M ass/Vol]Ordered By: Dr. Gamez on 07-07-2022 Glucose [Mass/Vol] 123 mg/dL 74-106 [facility] Comment on above: MANAGEMENT OF PATIEN T CARE PER NURSING PROTOCOL Hematocrit Auto (Bld) [Volum e fraction]Ordered By: Dr. Gamez on 07-07-2022 Hematocrit (Bld) [Volume fraction] 35.8 % 37-47 [facility] Laboratory - Chemistry and C hemistry - challengeOrdered By: Dr. Gamez on 07-07-2022 CO2 [Moles/Vol] 29.0 mmol/L 21.0-32.0 [facility] Urea nitrogen/Creatinine [Mass ratio] 28.9 mg/mg 10- [facility] Laboratory - Hematology and Cell countsOrdered By: Dr. Gamez on 07-07-2022 Erythrocyte distribution width (RBC) [Entitic vol] 46.3 fL 35.1-43.9 [facility] Erythrocyte distribution width (RBC) [Ratio] 13.9 % 11.6-14.6 [facility] Immature granulocytes/100 WBC (Bld) 0.400 % 0.0-0.9 [facility] Comment on above: IG% - Immature Granu locytes (promyelocytes, myelocytes and metamyelocytes) > 1% indicates that a LEFT SHIFT is Present. MCH (RBC) [Entitic mass] 29.4 pg 27.0-32.0 [facility] Nucleated RBC/100 WBC (Bld) [Ratio] 0 % 0-5 [facility] MCHC Auto (RBC) [Mass/Vol]Or dered By: Dr. Gamez on 07-07-2022 MCHC (RBC) [Mass/Vol] 32.4 g/dL 32-36 [facility] No Panel InformationOrdered By: Dr. Gamez on 07-07-2022 Estimated Creatinine Clearance Calc 25.65 ml/min [facility] Estimated GFR (MDRD) Amer 54 mL/min >60 [facility] Comment on above: GFR Calc Estimated GFR (MDRD) Non-Af Amer 45 mL/min >60 [facility] Comment on above: Non- GFR Calc 29.4 pg 27.0-32.0 [facility] 13.9 % 11.6-14.6 [facility] 46.3 fl 35.1-43.9 [facility] 0.400 % 0.0-0.9 [facility] 0 % 0-5 [facility] 45 mL/min >60 [facility] 54 mL/min >60 [facility] 25.65 ml/min [facility] 28.9 RATIO 10- [facility] 29.0 mmol/L 21.0-32.0 [facility] Platelets bldOrdered By: Dr. Gamez on 07-07-2022 Platelets (Bld) [#/Vol] 219 10*3/uL 150-450 [facility] Serum or plasma calcium brian urement (mass/volume)Ordered By: Dr. Gamez on 07-07-2022 Calcium [Mass/Vol] 9.7 mg/dL 8.5-10.1 [facility] Serum or plasma creatinine m easurement (mass/volume)Ordered By: Dr. Gamez on 07-07-2022 Creatinine [Mass/Vol] 1.21 mg/dL 0.55-1.02 [facility] Comment on above: The validity of the calculated GFR & GFRAA in patients over 70 years has not been determined. Clinical correlation is essential. Serum or plasma urea nitroge n measurement (mass/volume)Ordered By: Dr. Gamez on 07-07-2022 Urea nitrogen [Mass/Vol] 35 mg/dL 02-04 [facility] Thin prep Papanicolaou smear with manual screeningOrdered By: Dr. Gamez on 07-07-2022 Thin prep Papanicolaou smear with manual screening 6 12-02 [facility] No Panel InformationOrdered By: Dr. Gamez on 07-04-2022 Troponin I High Sensitivity 12 pg/mL 3.0-54.0 [facility] Comment on above: Please Note: New Sue t Units and Gender Specific Reference Ranges. For more information see Policy Stat Procedure [place] High Sensitivity Troponin (TNIH) and attachments. 12 pg/mL 3.0-54.0 [facility] Absolute lymphocyte counton 07-02-2022 Lymphocytes Auto (Unsp spec) [#/Vol] 2.55 10*3/uL 0.83-4.51 [facility] Work Phone: Basophil percentageOrdered B y: Dr. Kingsley on 07-02-2022 Basophil percentage 0 SEEN /hpf 0-5 [facility] Basophil percentage 7.2 g/dL 6.4-8.2 [facility] Basophil percentage 1.10 mg/dL 0.20-1.00 [facility] Bilirubin [Mass/Vol] 1.10 mg/dL 0.20-1.00 [facility] Comment on above: For patients on eltr ombopag therapy, use of Dimension [place] TBIL is not recommended. Protein [Mass/Vol] 7.2 g/dL 6.4-8.2 [facility] Basophil percentageon 2021 Basophils/100 WBC (Bld) 0.7 % 0-1 [facility] [place] Work Phone: Chloride [Moles/Vol] 105 mmol/L 98-107 [facility] Work Phone: Eosinophils/100 WBC (Bld) 2.4 % 0-5 [facility] Work Phone: Glucose [Mass/Vol] 149 mg/dL 74-106 [facility] Work Phone: Comment on above: Fasting Glucose resu lt greater than or equal to 126 mg/dL suggests DIABETES MELLITUS per A.D.A. criteria. Neutrophils (Bld) [#/Vol] 4.9 10*3/uL 2.0-7.7 [facility] Work Phone: Neutrophils/100 WBC (Bld) 57.9 % 47-70 [facility] Work Phone: Potassium [Moles/Vol] 4.4 mmol/L 3.5-5.1 [facility] Work Phone: Sodium [Moles/Vol] 136 mmol/L 136-145 [facility] Work Phone: WBC (Bld) [#/Vol] 8.5 10*3/uL 4.4-11.0 [facility] Work Phone: Bilirubin Test strip Ql (U)O rdered By: Dr. Kingsley on 07-02-2022 Bilirubin Ql (U) Negative Negative [facility] Blood erythrocytes count (nu mber/volume)on 07-02-2022 RBC (Bld) [#/Vol] 4.12 10*6/uL 4.2-5.4 [facility] Work Phone: Blood hemoglobin measurement (mass/volume)on 07-02-2022 Hemoglobin (Bld) [Mass/Vol] 12.3 g/dL 12.0-15.0 [facility] Work Phone: Blood lymphocytes/100 leukoc yteson 07-02-2022 Lymphocytes/100 WBC (Bld) 30.0 % 19-41 [facility] Work Phone: Blood monocytes/100 leukocyt eson 07-02-2022 Monocytes/100 WBC (Bld) 8.8 % 0-10 [facility] [place] Work Phone: Blood platelet mean volumeon 07-02-2022 Platelet mean volume (Bld) [Entitic vol] 10.0 fL 6.2-12.0 [facility] Work Phone: Determination of erythrocyte mean corpuscular volume (MCV)on 07-02-2022 MCV (RBC) [Entitic vol] 89.6 fL 81-99 [facility] [place] Work Phone: Hematocrit Auto (Bld) [Volum e fraction]on 07-02-2022 Hematocrit (Bld) [Volume fraction] 36.9 % 37-47 [facility] Work Phone: Influenza virus A and B and SARS-CoV-2 (COVID-19) Ag panel - Upper respiratory specimOrdered By: Dr. Kingsley on 07-02-2022 SARS-CoV-2 (COVID-19) RNA KAYLIE+probe Ql (Resp) [facility] Ketones Test strip Ql (U)Ord ered By: Dr. Kingsley on 07-02-2022 Ketones Ql (U) Negative Negative [facility] Laboratory - Chemistry and C hemistry - challengeOrdered By: Dr. Kingsley on 07-02-2022 ALP [Catalytic activity/Vol] 67 U/L 45-117 [facility] ALT [Catalytic activity/Vol] 24 U/L 13-56 [facility] Globulin (S) [Mass/Vol] 3.9 g/dL 2.2-4.2 [place] Natriuretic peptide B (Bld) [Mass/Vol] 228.1 pg/mL 0-100 [facility] Laboratory - Chemistry and C hemistry - challengeon 07-02-2022 CO2 [Moles/Vol] 26.0 mmol/L 21.0-32.0 [facility] Work Phone: Urea nitrogen/Creatinine [Mass ratio] 16.8 mg/mg 10-20 [facility] Work Phone: Laboratory - Hematology and Cell countson 07-02-2022 Erythrocyte distribution width (RBC) [Entitic vol] 46.8 fL 35.1-43.9 [facility] Work Phone: Erythrocyte distribution width (RBC) [Ratio] 14.2 % 11.6-14.6 [facility] Work Phone: Immature granulocytes/100 WBC (Bld) 0.200 % 0.0-0.9 [facility] Work Phone: Comment on above: IG% - Immature Granu locytes (promyelocytes, myelocytes and metamyelocytes) > 1% indicates that a LEFT SHIFT is Present. MCH (RBC) [Entitic mass] 29.9 pg 27.0-32.0 [facility] Work Phone: Nucleated RBC/100 WBC (Bld) [Ratio] 0 % 0-5 [facility] Work Phone: MCHC Auto (RBC) [Mass/Vol]on 07-02-2022 MCHC (RBC) [Mass/Vol] 33.3 g/dL 32-36 [facility] Work Phone: Mucus LM Ql (Urine sed)Order ed By: Dr. Kingsley on 07-02-2022 Mucus Ql (Urine sed) 0 SEEN /hpf [facility] Nitrite Test strip Ql (U)Ord ered By: Dr. Kingsley on 07-02-2022 Nitrite Ql (U) Negative Negative [facility] No Panel Informationon 07-02 Estimated Creatinine Clearance Calc 24.83 ml/min [facility] Work Phone: Estimated GFR (MDRD) Amer 52 mL/min >60 [facility] Work Phone: Comment on above: GFR Calc Estimated GFR (MDRD) Non-Af Amer 43 mL/min >60 [facility] Work Phone: Comment on above: Non- GFR Calc No Panel InformationOrdered By: Dr. Kingsley on 07-02-2022 3.9 g/dL 2.2-4.2 [facility] 67 U/L 45-117 [facility] 24 U/L 13-56 [facility] 228.1 pg/mL 0-100 [facility] Platelets bldon 07-02-2022 Platelets (Bld) [#/Vol] 272 10*3/uL 150-450 [facility] Work Phone: Protein Test strip Ql (U)Ord ered By: Dr. Kingsley on 07-02-2022 Protein Ql (U) Negative Negative [facility] RSV Ag EIAOrdered By: Dr. Geno chandler on 07-02-2022 RSV Ag Immune stain Ql (Tiss) [facility] Serum or plasma albumin brian urement (mass/volume)Ordered By: Dr. Kingsley on 07-02-2022 Albumin [Mass/Vol] 3.3 g/dL 3.2-5.0 [facility] Serum or plasma albumin/glob ulin mass ratioOrdered By: Dr. Kingsley on 07-02-2022 Albumin/Globulin [Mass ratio] 0.8 {ratio} 0.9-2.4 [facility] Serum or plasma calcium brian urement (mass/volume)on 07-02-2022 Calcium [Mass/Vol] 10.1 mg/dL 8.5-10.1 [facility] Work Phone: Serum or plasma creatinine m easurement (mass/volume)on 07-02-2022 Creatinine [Mass/Vol] 1.25 mg/dL 0.55-1.02 [facility] Work Phone: Comment on above: The validity of the calculated GFR & GFRAA in patients over 70 years has not been determined. Clinical correlation is essential. Serum or plasma urea nitroge n measurement (mass/volume)on 07-02-2022 Urea nitrogen [Mass/Vol] 21 mg/dL 7-18 [facility] Work Phone: Squamous epithelial cells de tection in urine sediment by light microscopyOrdered By: Dr. Kingsley on 07-02-2022 Epithelial cells.squamous LM Ql (Urine sed) 0-5 SEEN /hpf 5-10 [facility] Thin prep Papanicolaou smear with manual screeningOrdered By: Dr. Kingsley on 07-02-2022 Thin prep Papanicolaou smear with manual screening 12 U/L 15-37 [facility] Thin prep Papanicolaou smear with manual screeningon 07-02-2022 Thin prep Papanicolaou smear with manual screening 5 5-15 [facility] Work Phone: Urine blood detectionOrdered By: Dr. Kingsley on 07-02-2022 RBC Ql (U) Negative Negative [facility] RBC Ql (U) 0 SEEN /hpf 0-5 [facility] Urine clarityOrdered By: Dr. Kingsley on 07-02-2022 Clarity (U) Clear Clear [facility] Urine color determinationOrd ered By: Dr. Kingsley on 07-02-2022 Color (U) Yellow Yellow [facility] Urine glucose detectionOrder ed By: Dr. Kingsley on 07-02-2022 Glucose Ql (U) Normal mg/dl Normal [facility] Urine leukocyte esterase det ection by dipstickOrdered By: Dr. Kingsley on 07-02-2022 Leukocyte esterase Test strip Ql (U) 25 /ul Negative [facility] Urine pHOrdered By: Dr. Rufino lozano on 07-02-2022 pH (U) 6.5 [pH] 5.0 - 8.0 [facility] Urine sediment bacteria coun t by microscopy (number/high power field)Ordered By: Dr. Kingsley on 07-02-2022 Bacteria LM.HPF (Urine sed) [#/Area] 0 /[HPF] None Seen [facility] Urine specific gravity measu rementOrdered By: Dr. Kingsley on 07-02-2022 Specific gravity (U) [Rel density] 1.010 1.002-1.03 0 [facility] Urobilinogen Auto test strip Ql (U)Ordered By: Dr. Kingsley on 07-02-2022 Urobilinogen Ql (U) Normal mg/dl Normal [facility] CBC & PLATELETS (AUTO) (8502 [id number])Ordered By: Gun Synchronizer on 06-25-2022 Erythrocyte distribution width (RBC) [Ratio] 13.3 % Normal 11.7-15.4 [facility] Work Phone: Comment on above: PATIENT NOT FASTINGP ERFORMED BY: CB [facility] [id number] [place] [id number] Hematocrit (Bld) [Volume fraction] 36.5 % Normal 34.0-46.6 [facility]; [facility] Work Phone: Comment on above: PATIENT NOT FASTINGP ERFORMED BY: CB [facility] [id number]Dublin [place] [id number] Hemoglobin (Bld) [Mass/Vol] 12.0 g/dL Normal 11.1-15.9 [facility]; [facility] Work Phone: Comment on above: PATIENT NOT FASTINGP ERFORMED BY: CB [facility] [id number] [address]Dublin [place] [id number] MCH (RBC) [Entitic mass] 29.3 pg Normal 26.6-33.0 [facility]; [facility] Work Phone: Comment on above: PATIENT NOT FASTINGP ERFORMED BY: CB [facility] [id number] [place] [id number] MCHC (RBC) [Mass/Vol] 32.9 g/dL Normal 31.5-35.7 [facility]; [facility] Work Phone: Comment on above: PATIENT NOT FASTINGP ERFORMED BY: CB [facility] [id number] [address] [place] [id number] MCV (RBC) [Entitic vol] 89 fL Normal 79-97 [facility]; [facility] Work Phone: Comment on above: PATIENT NOT FASTINGP ERFORMED BY: CB [facility] [id number] [place] [id number] Platelets (Bld) [#/Vol] 233 10*3/uL Normal 150-450 [facility]; [facility] Work Phone: Comment on above: PATIENT NOT FASTINGP ERFORMED BY: CB [facility] [id number] [place] [id number] RBC (Bld) [#/Vol] 4.10 10*6/uL Normal 3.77-5.28 [facility] Work Phone: Comment on above: PATIENT NOT FASTINGP ERFORMED BY: HALEIGH [facility] [id number] [place] [id number] WBC (Bld) [#/Vol] 9.4 10*3/uL Normal 3.4-10.8 [facility]; [facility] Work Phone: Comment on above: PATIENT NOT FASTINGP ERFORMED BY: CB [facility] [id number] [place] [id number] METABOLIC PANEL, BASIC ([id number])Ordered By: Gun Synchronizer on 06-25-2022 Calcium [Mass/Vol] 10.1 mg/dL Normal 8.7-10.3 [facility]; [facility] Work Phone: Comment on above: PATIENT NOT FASTINGP ERFORMED BY: CB [facility] [id number] [place] [id number] Chloride [Moles/Vol] 101 mmol/L Normal 96-106 [facility] Work Phone: Comment on above: PATIENT NOT FASTINGP ERFORMED BY: CB [facility] [id number] [place] [id number] CO2 [Moles/Vol] 23 mmol/L Normal 20-29 [facility]; [facility] Work Phone: Comment on above: PATIENT NOT FASTINGP ERFORMED BY: CB [facility] [id number] [place] [id number] Creatinine [Mass/Vol] 1.09 mg/dL Abnormal 0.57-1.00 [facility] Work Phone: Comment on above: PATIENT NOT FASTINGP ERFORMED BY: CB [facility] [id number] [place] [id number] GFR/1.73 sq M.predicted among non-blacks MDRD (S/P/Bld) [Vol rate/Area] 50 mL/min/{1.73_m2} Abnormal [facility]; [facility] Work Phone: Comment on above: PATIENT NOT FASTINGP ERFORMED BY: HALEIGH [facility] [id number] [facility] [place] [id number] Glucose [Mass/Vol] 118 mg/dL Abnormal 70-99 [facility]; [facility] Work Phone: Comment on above: PATIENT NOT FASTINGP ERFORMED BY: CB [facility] [id number] [facility] [id number] Potassium [Moles/Vol] 4.7 mmol/L Normal 3.5-5.2 [facility]; [facility] Work Phone: Comment on above: PATIENT NOT FASTINGP ERFORMED BY: CB [facility] [id number] [facility] [id number] Sodium [Moles/Vol] 138 mmol/L Normal 134-144 [facility]; [facility] Work Phone: Comment on above: PATIENT NOT FASTINGP ERFORMED BY: CB [facility] [id number] [facility] [place] [id number] Urea nitrogen [Mass/Vol] 23 mg/dL Normal 8-27 [facility]; [facility] Work Phone: Comment on above: PATIENT NOT FASTINGP ERFORMED BY: CB [facility] [id number] [facility] [id number] Urea nitrogen/Creatinine [Mass ratio] 21 mg/mg Normal 12- [facility]; [facility] Work Phone: Comment on above: PATIENT NOT FASTINGP ERFORMED BY: CB [facility] [id number] [facility]in [place] [id number] Absolute lymphocyte countOrd ered By: Dr. Lal on 06-17-2022 Lymphocytes Auto (Unsp spec) [#/Vol] 3.40 10*3/uL 0.83-4.51 [facility] Basophil percentageOrdered B y: Dr. Lal on 06-17-2022 Basophil percentage 109 mg/dL 74-106 [facility] Basophil percentage 136 mmol/L 136-145 [facility] Basophil percentage 4.4 mmol/L 3.5-5.1 [facility] Basophil percentage 104 mmol/L 98-107 [facility] Basophils (Bld) [#/Vol] 8.7 10*3/uL 4.4-11.0 [facility] Basophils (Bld) [#/Vol] 4.1 10*3/uL 2.0-7.7 [facility] Basophils/100 WBC (Bld) 0.6 % 0-1 [place] Basophils/100 WBC (Bld) 47.5 % 47-70 [place] Basophils/100 WBC (Bld) 2.5 % 0-5 [place] Basophil percentageon 2021 Chloride [Moles/Vol] 104 mmol/L 98-107 [facility] Work Phone: Eosinophils/100 WBC (Bld) 2.5 % 0-5 [facility] Work Phone: Glucose [Mass/Vol] 109 mg/dL 74-106 [facility] Work Phone: Comment on above: Fasting Glucose resu lt from 100 to 125 mg/dL suggests IMPAIRED HOMEOSTASIS per A.D.A. criteria. Neutrophils (Bld) [#/Vol] 4.1 10*3/uL 2.0-7.7 [facility] Work Phone: Neutrophils/100 WBC (Bld) 47.5 % 47-70 [facility] Work Phone: Potassium [Moles/Vol] 4.4 mmol/L 3.5-5.1 [facility] Work Phone: Sodium [Moles/Vol] 136 mmol/L 136-145 [facility] Work Phone: WBC (Bld) [#/Vol] 8.7 10*3/uL 4.4-11.0 [facility] Work Phone: Blood erythrocytes count (nu mber/volume)Ordered By: Dr. Lal on 06-17-2022 RBC (Bld) [#/Vol] 3.83 10*6/uL 4.2-5.4 [facility] Blood hemoglobin measurement (mass/volume)Ordered By: Dr. Lal on 06-17-2022 Hemoglobin (Bld) [Mass/Vol] 11.4 g/dL 12.0-15.0 [facility] Blood lymphocytes/100 leukoc ytesOrdered By: Dr. Lal on 06-17-2022 Lymphocytes/100 WBC (Bld) 38.9 % 19-41 [facility] Blood monocytes/100 leukocyt esOrdered By: Dr. Lal on 06-17-2022 Monocytes/100 WBC (Bld) 10.2 % 0-10 [place] Blood platelet mean volumeOr dered By: Dr. Lal on 06-17-2022 Platelet mean volume (Bld) [Entitic vol] 10.6 fL 6.2-12.0 [facility] Determination of erythrocyte mean corpuscular volume (MCV)Ordered By: Dr. Lal on 06-17-2022 MCV (RBC) [Entitic vol] 90.9 fL 81-99 [place] Hematocrit Auto (Bld) [Volum e fraction]Ordered By: Dr. Lal on 06-17-2022 Hematocrit (Bld) [Volume fraction] 34.8 % 37-47 [facility] Laboratory - Chemistry and C hemistry - challengeon 06-17-2022 CO2 [Moles/Vol] 28.0 mmol/L 21.0-32.0 [facility] Work Phone: Urea nitrogen/Creatinine [Mass ratio] 20.9 mg/mg 10-20 [facility] Work Phone: Laboratory - Hematology and Cell countson 06-17-2022 Erythrocyte distribution width (RBC) [Entitic vol] 48.8 fL 35.1-43.9 [facility] Work Phone: Erythrocyte distribution width (RBC) [Ratio] 14.5 % 11.6-14.6 [facility] Work Phone: Immature granulocytes/100 WBC (Bld) 0.300 % 0.0-0.9 [facility] Work Phone: Comment on above: IG% - Immature Granu locytes (promyelocytes, myelocytes and metamyelocytes) > 1% indicates that a LEFT SHIFT is Present. MCH (RBC) [Entitic mass] 29.8 pg 27.0-32.0 [facility] Work Phone: Nucleated RBC/100 WBC (Bld) [Ratio] 0 % 0-5 [facility] Work Phone: MCHC Auto (RBC) [Mass/Vol]Or dered By: Dr. Lal on 06-17-2022 MCHC (RBC) [Mass/Vol] 32.8 g/dL 32-36 [facility] No Panel Informationon 06-17 Estimated GFR (MDRD) Amer 58 mL/min >60 [facility] Work Phone: Comment on above: GFR Calc Estimated GFR (MDRD) Non-Af Amer 48 mL/min >60 [facility] Work Phone: Comment on above: Non- GFR Calc No Panel InformationOrdered By: Dr. Lal on 06-17-2022 29.8 pg 27.0-32.0 [facility] 14.5 % 11.6-14.6 [facility] 48.8 fl 35.1-43.9 [facility] 0.300 % 0.0-0.9 [facility] 0 % 0-5 [facility] 48 mL/min >60 [facility] 58 mL/min >60 [facility] 20.9 RATIO 10-20 [facility] 28.0 mmol/L 21.0-32.0 [facility] Platelets bldOrdered By: Dr. Lal on 06-17-2022 Platelets (Bld) [#/Vol] 208 10*3/uL 150-450 [facility] Serum or plasma calcium brian urement (mass/volume)Ordered By: Dr. Lal on 06-17-2022 Calcium [Mass/Vol] 9.7 mg/dL 8.5-10.1 [facility] Serum or plasma creatinine m easurement (mass/volume)Ordered By: Dr. Lal on 06-17-2022 Creatinine [Mass/Vol] 1.15 mg/dL 0.55-1.02 [facility] Comment on above: The validity of the calculated GFR & GFRAA in patients over 70 years has not been determined. Clinical correlation is essential. Serum or plasma urea nitroge n measurement (mass/volume)Ordered By: Dr. Lal on 06-17-2022 Urea nitrogen [Mass/Vol] 24 mg/dL 7-18 [facility] Thin prep Papanicolaou smear with manual screeningOrdered By: Dr. Lal on 06-17-2022 Thin prep Papanicolaou smear with manual screening 4 5-15 [facility] Basophil percentageOrdered B y: Dr. Lal on 06-08-2022 Basophil percentage 114 mg/dL 74-106 [facility] Basophil percentage 6.9 g/dL 6.4-8.2 [facility] Basophil percentage 1.00 mg/dL 0.20-1.00 [facility] Basophil percentage 141 mmol/L 136-145 [facility] Basophil percentage 4.2 mmol/L 3.5-5.1 [facility] Basophil percentage 108 mmol/L 98-107 [facility] Basophils (Bld) [#/Vol] 7.5 10*3/uL 4.4-11.0 [facility] Basophil percentageon 2021 Bilirubin [Mass/Vol] 1.00 mg/dL 0.20-1.00 [facility] Work Phone: Comment on above: For patients on eltr ombopag therapy, use of Dimension [place] TBIL is not recommended. Chloride [Moles/Vol] 108 mmol/L 98-107 [facility] Work Phone: Glucose [Mass/Vol] 114 mg/dL 74-106 [facility] Work Phone: Comment on above: Fasting Glucose resu lt from 100 to 125 mg/dL suggests IMPAIRED HOMEOSTASIS per A.D.A. criteria. Potassium [Moles/Vol] 4.2 mmol/L 3.5-5.1 [facility] Work Phone: Protein [Mass/Vol] 6.9 g/dL 6.4-8.2 [facility] Work Phone: Sodium [Moles/Vol] 141 mmol/L 136-145 [facility] Work Phone: WBC (Bld) [#/Vol] 7.5 10*3/uL 4.4-11.0 [facility] Work Phone: Blood erythrocytes count (nu mber/volume)Ordered By: Dr. Lal on 06-08-2022 RBC (Bld) [#/Vol] 3.81 10*6/uL 4.2-5.4 [facility] Blood hemoglobin measurement (mass/volume)Ordered By: Dr. Lal on 06-08-2022 Hemoglobin (Bld) [Mass/Vol] 11.1 g/dL 12.0-15.0 [facility] Blood platelet mean volumeOr dered By: Dr. Lal on 06-08-2022 Platelet mean volume (Bld) [Entitic vol] 11.1 fL 6.2-12.0 [facility] Determination of erythrocyte mean corpuscular volume (MCV)Ordered By: Dr. Lal on 06-08-2022 MCV (RBC) [Entitic vol] 90.6 fL 81-99 [place] Hematocrit Auto (Bld) [Volum e fraction]Ordered By: Dr. Lal on 06-08-2022 Hematocrit (Bld) [Volume fraction] 34.5 % 37-47 [facility] Laboratory - Chemistry and C hemistry - challengeon 06-08-2022 ALP [Catalytic activity/Vol] 54 U/L 45-117 [facility] Work Phone: ALT [Catalytic activity/Vol] 18 U/L 13-56 [facility] Work Phone: CO2 [Moles/Vol] 29.0 mmol/L 21.0-32.0 [facility] Work Phone: Globulin (S) [Mass/Vol] 4.0 g/dL 2.2-4.2 [facility] [place] Work Phone: Urea nitrogen/Creatinine [Mass ratio] 41.3 mg/mg 10-20 [facility] Work Phone: Laboratory - Hematology and Cell countson 06-08-2022 Erythrocyte distribution width (RBC) [Entitic vol] 47.8 fL 35.1-43.9 [facility] Work Phone: Erythrocyte distribution width (RBC) [Ratio] 14.4 % 11.6-14.6 [facility] Work Phone: MCH (RBC) [Entitic mass] 29.1 pg 27.0-32.0 [facility] Work Phone: MCHC Auto (RBC) [Mass/Vol]Or dered By: Dr. Lal on 06-08-2022 MCHC (RBC) [Mass/Vol] 32.2 g/dL 32-36 [facility] No Panel Informationon 06-08 Estimated GFR (MDRD) Amer 54 mL/min >60 [facility] Work Phone: Comment on above: GFR Calc Estimated GFR (MDRD) Non-Af Amer 45 mL/min >60 [facility] Work Phone: Comment on above: Non- GFR Calc No Panel InformationOrdered By: Dr. Lal on 06-08-2022 29.1 pg 27.0-32.0 [facility] 14.4 % 11.6-14.6 [facility] 47.8 fl 35.1-43.9 [facility] 45 mL/min >60 [facility] 54 mL/min >60 [facility] 41.3 RATIO 10-20 [facility] 4.0 g/dL 2.2-4.2 [facility] 54 U/L 45-117 [facility] 18 U/L 13-56 [facility] 29.0 mmol/L 21.0-32.0 [facility] Platelets bldOrdered By: Dr. Lal on 06-08-2022 Platelets (Bld) [#/Vol] 230 10*3/uL 150-450 [facility] Serum or plasma albumin brian urement (mass/volume)Ordered By: Dr. Lal on 06-08-2022 Albumin [Mass/Vol] 2.9 g/dL 3.2-5.0 [facility] Serum or plasma albumin/glob ulin mass ratioOrdered By: Dr. Lal on 06-08-2022 Albumin/Globulin [Mass ratio] 0.7 {ratio} 0.9-2.4 [facility] Serum or plasma calcium brian urement (mass/volume)Ordered By: Dr. Lal on 06-08-2022 Calcium [Mass/Vol] 9.9 mg/dL 8.5-10.1 [facility] Serum or plasma creatinine m easurement (mass/volume)Ordered By: Dr. Lal on 06-08-2022 Creatinine [Mass/Vol] 1.21 mg/dL 0.55-1.02 [facility] Comment on above: The validity of the calculated GFR & GFRAA in patients over 70 years has not been determined. Clinical correlation is essential. Serum or plasma urea nitroge n measurement (mass/volume)Ordered By: Dr. Lal on 06-08-2022 Urea nitrogen [Mass/Vol] 50 mg/dL 7-18 [facility] Thin prep Papanicolaou smear with manual screeningOrdered By: Dr. Lal on 06-08-2022 Thin prep Papanicolaou smear with manual screening 13 U/L 15-37 [facility] Thin prep Papanicolaou smear with manual screening 4 5-15 [facility] Basophil percentageOrdered B y: Dr. Hudson on 06-06-2022 Basophil percentage 3.6 mg/dL 2.5-4.9 [facility] Basophil percentage 108 mg/dL 74-106 [facility] Basophil percentage 136 mmol/L 136-145 [facility] Basophil percentage 5.2 mmol/L 3.5-5.1 [facility] Basophil percentage 104 mmol/L 98-107 [facility] Basophil percentageon 2021 Chloride [Moles/Vol] 104 mmol/L 98-107 [facility] Work Phone: Glucose [Mass/Vol] 108 mg/dL 74-106 [facility] Work Phone: Comment on above: Fasting Glucose resu lt from 100 to 125 mg/dL suggests IMPAIRED HOMEOSTASIS per A.D.A. criteria. Potassium [Moles/Vol] 5.2 mmol/L 3.5-5.1 [facility] Work Phone: Sodium [Moles/Vol] 136 mmol/L 136-145 [facility] Work Phone: Glucose Glucometer (BldC) [M ass/Vol]Ordered By: Dr. Arevalo on 06-06-2022 Glucose [Mass/Vol] 101 mg/dL 74-106 [facility] Comment on above: MANAGEMENT OF PATIEN T CARE PER NURSING PROTOCOL Laboratory - Chemistry and C hemistry - challengeon 06-06-2022 CO2 [Moles/Vol] 27.0 mmol/L 21.0-32.0 [facility] Work Phone: Urea nitrogen/Creatinine [Mass ratio] 58.7 mg/mg 05-09 [facility] Work Phone: No Panel Informationon 06-06 Estimated Creatinine Clearance Calc 15.44 ml/min [facility] Work Phone: Estimated GFR (MDRD) Amer 30 mL/min >60 [facility] Work Phone: Comment on above: GFR Calc Estimated GFR (MDRD) Non-Af Amer 25 mL/min >60 [facility] Work Phone: Comment on above: Non- GFR Calc No Panel InformationOrdered By: Dr. Hudson on 06-06-2022 25 mL/min >60 [facility] 30 mL/min >60 [facility] 15.44 ml/min [facility] 58.7 RATIO 05-09 [facility] 27.0 mmol/L 21.0-32.0 [facility] Serum or plasma albumin brian urement (mass/volume)Ordered By: Dr. Hudson on 06-06-2022 Albumin [Mass/Vol] 2.8 g/dL 3.2-5.0 [facility] Serum or plasma calcium brian urement (mass/volume)Ordered By: Dr. Hudson on 06-06-2022 Calcium [Mass/Vol] 9.6 mg/dL 8.5-10.1 [facility] Serum or plasma creatinine m easurement (mass/volume)Ordered By: Dr. Hudson on 06-06-2022 Creatinine [Mass/Vol] 2.01 mg/dL 0.55-1.02 [facility] Comment on above: The validity of the calculated GFR & GFRAA in patients over 70 years has not been determined. Clinical correlation is essential. Serum or plasma urea nitroge n measurement (mass/volume)Ordered By: Dr. Hudson on 06-06-2022 Urea nitrogen [Mass/Vol] 118 mg/dL 02-04 [facility] Comment on above: Critical Result(s) C alled at: 06:43:18 06/06/2022 by: MARIAN SMITH Results read back by same. Absolute lymphocyte countOrd ered By: Dr. Hudson on 06-05-2022 Lymphocytes Auto (Unsp spec) [#/Vol] 2.80 10*3/uL 0.83-4.51 [facility] Basophil percentageOrdered B y: Dr. Hudson on 06-05-2022 Basophils (Bld) [#/Vol] 8.2 10*3/uL 4.4-11.0 [facility] Basophils (Bld) [#/Vol] 4.0 10*3/uL 2.0-7.7 [facility] Basophils/100 WBC (Bld) 0.6 % 0-1 [place] Basophils/100 WBC (Bld) 49.1 % 47-70 [place] Basophils/100 WBC (Bld) 3.7 % 0-5 [place] Basophil percentageon 2021 Eosinophils/100 WBC (Bld) 3.7 % 0-5 [facility] Work Phone: Neutrophils (Bld) [#/Vol] 4.0 10*3/uL 2.0-7.7 [facility] Work Phone: Neutrophils/100 WBC (Bld) 49.1 % 47-70 [facility] Work Phone: WBC (Bld) [#/Vol] 8.2 10*3/uL 4.4-11.0 [facility] Work Phone: Blood erythrocytes count (nu mber/volume)Ordered By: Dr. Hudson on 06-05-2022 RBC (Bld) [#/Vol] 3.67 10*6/uL 4.2-5.4 [facility] Blood hemoglobin measurement (mass/volume)Ordered By: Dr. Hudson on 06-05-2022 Hemoglobin (Bld) [Mass/Vol] 11.0 g/dL 12.0-15.0 [facility] Blood lymphocytes/100 leukoc ytesOrdered By: Dr. Hudson on 06-05-2022 Lymphocytes/100 WBC (Bld) 34.2 % 19-41 [facility] Blood monocytes/100 leukocyt esOrdered By: Dr. Hudson on 06-05-2022 Monocytes/100 WBC (Bld) 12.2 % 0-10 [place] Blood platelet mean volumeOr dered By: Dr. Hudson on 06-05-2022 Platelet mean volume (Bld) [Entitic vol] 10.5 fL 6.2-12.0 [facility] Determination of erythrocyte mean corpuscular volume (MCV)Ordered By: Dr. Hudson on 06-05-2022 MCV (RBC) [Entitic vol] 90.5 fL 81-99 [place] Hematocrit Auto (Bld) [Volum e fraction]Ordered By: Dr. Hudson on 06-05-2022 Hematocrit (Bld) [Volume fraction] 33.2 % 37-47 [facility] Laboratory - Chemistry and C hemistry - challengeon 06-05-2022 Sodium (U) [Moles/Vol] 29 mmol/L Not Establ. [facility] Work Phone: Laboratory - Hematology and Cell countson 06-05-2022 Erythrocyte distribution width (RBC) [Entitic vol] 48.6 fL 35.1-43.9 [facility] Work Phone: Erythrocyte distribution width (RBC) [Ratio] 14.6 % 11.6-14.6 [facility] Work Phone: Immature granulocytes/100 WBC (Bld) 0.200 % 0.0-0.9 [facility] Work Phone: Comment on above: IG% - Immature Granu locytes (promyelocytes, myelocytes and metamyelocytes) > 1% indicates that a LEFT SHIFT is Present. MCH (RBC) [Entitic mass] 30.0 pg 27.0-32.0 [facility] Work Phone: Nucleated RBC/100 WBC (Bld) [Ratio] 0 % 0-5 [facility] Work Phone: MCHC Auto (RBC) [Mass/Vol]Or dered By: Dr. Hudson on 06-05-2022 MCHC (RBC) [Mass/Vol] 33.1 g/dL 32-36 [facility] No Panel Informationon 06-05 Urine Urea Nitrogen 951 mg/dL NO RANGE EST. [facility] Work Phone: No Panel InformationOrdered By: Dr. Hudson on 06-05-2022 29 mmol/L Not Establ. [facility] 951 mg/dL NO RANGE EST. [facility] 30.0 pg 27.0-32.0 [facility] 14.6 % 11.6-14.6 [facility] 48.6 fl 35.1-43.9 [facility] 0.200 % 0.0-0.9 [facility] 0 % 0-5 [facility] Platelets bldOrdered By: Dr. Hudson on 06-05-2022 Platelets (Bld) [#/Vol] 231 10*3/uL 150-450 [facility] Urine creatinine measurement (mass/volume)Ordered By: Dr. Hudson on 06-05-2022 Creatinine (U) [Mass/Vol] 51.60 mg/dL NO RANGE EST. [facility] Thin prep Papanicolaou smear with manual screeningOrdered By: Dr. Arevalo on 05-31-2022 Thin prep Papanicolaou smear with manual screening 5 5-15 [facility] Basophil percentageOrdered B y: Dr. Martinez on 05-23-2022 Basophil percentage 120 mg/dL 74-106 [facility] Basophil percentage 135 mmol/L 136-145 [facility] Basophil percentage 5.0 mmol/L 3.5-5.1 [facility] Basophil percentage 101 mmol/L 98-107 [facility] Basophil percentageon 2021 Chloride [Moles/Vol] 101 mmol/L 98-107 [facility] Work Phone: Glucose [Mass/Vol] 120 mg/dL 74-106 [facility] Work Phone: Comment on above: Fasting Glucose resu lt from 100 to 125 mg/dL suggests IMPAIRED HOMEOSTASIS per A.D.A. criteria. Potassium [Moles/Vol] 5.0 mmol/L 3.5-5.1 [facility] Work Phone: Comment on above: Slight Hemolysis, Re sult may be falsely increased. Sodium [Moles/Vol] 135 mmol/L 136-145 [facility] Work Phone: COVID-19 virus antigen assay Ordered By: Dr. Martinez on 05-23-2022 SARS-CoV-2 (COVID-19) Ag IA.rapid Ql (Resp) [facility] Glucose Glucometer (BldC) [M ass/Vol]Ordered By: Dr. Martinez on 05-23-2022 Glucose [Mass/Vol] 140 mg/dL 74-106 [facility] Comment on above: MANAGEMENT OF PATIEN T CARE PER NURSING PROTOCOL Glucose Glucometer (BldC) [M ass/Vol]on 05-23-2022 Glucose [Mass/Vol] 124 mg/dL 74-106 [facility] Work Phone: Comment on above: MANAGEMENT OF PATIEN T CARE PER NURSING PROTOCOL Laboratory - Chemistry and C hemistry - challengeon 05-23-2022 CO2 [Moles/Vol] 27.0 mmol/L 21.0-32.0 [facility] Work Phone: Urea nitrogen/Creatinine [Mass ratio] 41.0 mg/mg 10-20 [facility] Work Phone: No Panel Informationon 05-23 Estimated Creatinine Clearance Calc 16.51 ml/min [facility] Work Phone: Estimated GFR (MDRD) Amer 33 mL/min >60 [facility] Work Phone: Comment on above: GFR Calc Estimated GFR (MDRD) Non-Af Amer 27 mL/min >60 [facility] Work Phone: Comment on above: Non- GFR Calc No Panel InformationOrdered By: Dr. Martinez on 05-23-2022 27 mL/min >60 [facility] 33 mL/min >60 [facility] 16.51 ml/min [facility] 41.0 RATIO 10-20 [facility] 27.0 mmol/L 21.0-32.0 [facility] Serum or plasma calcium brian urement (mass/volume)Ordered By: Dr. Martinez on 05-23-2022 Calcium [Mass/Vol] 10.1 mg/dL 8.5-10.1 [facility] Serum or plasma creatinine m easurement (mass/volume)Ordered By: Dr. Martinez on 05-23-2022 Creatinine [Mass/Vol] 1.88 mg/dL 0.55-1.02 [facility] Comment on above: The validity of the calculated GFR & GFRAA in patients over 70 years has not been determined. Clinical correlation is essential. Serum or plasma urea nitroge n measurement (mass/volume)Ordered By: Dr. Martinez on 05-23-2022 Urea nitrogen [Mass/Vol] 77 mg/dL 7-18 [facility] Thin prep Papanicolaou smear with manual screeningOrdered By: Dr. Martinez on 05-23-2022 Thin prep Papanicolaou smear with manual screening 7 5-15 [facility] Absolute lymphocyte countOrd ered By: Dr. Martinez on 05-22-2022 Lymphocytes Auto (Unsp spec) [#/Vol] 2.89 10*3/uL 0.83-4.51 [facility] Basophil percentageOrdered B y: Dr. Martinez on 05-22-2022 Basophils (Bld) [#/Vol] 8.7 10*3/uL 4.4-11.0 [facility] Basophils (Bld) [#/Vol] 4.2 10*3/uL 2.0-7.7 [facility] Basophils/100 WBC (Bld) 1.2 % 0-1 [place] Basophils/100 WBC (Bld) 48.2 % 47-70 [place] Basophils/100 WBC (Bld) 3.9 % 0-5 [place] Basophil percentageon 2021 Eosinophils/100 WBC (Bld) 3.9 % 0-5 [facility] Work Phone: Neutrophils (Bld) [#/Vol] 4.2 10*3/uL 2.0-7.7 [facility] Work Phone: Neutrophils/100 WBC (Bld) 48.2 % 47-70 [facility] Work Phone: WBC (Bld) [#/Vol] 8.7 10*3/uL 4.4-11.0 [facility] Work Phone: Blood erythrocytes count (nu mber/volume)Ordered By: Dr. Martinez on 05-22-2022 RBC (Bld) [#/Vol] 3.58 10*6/uL 4.2-5.4 [facility] Blood hemoglobin measurement (mass/volume)Ordered By: Dr. Martinez on 05-22-2022 Hemoglobin (Bld) [Mass/Vol] 10.9 g/dL 12.0-15.0 [facility] Blood lymphocytes/100 leukoc ytesOrdered By: Dr. Martinez on 05-22-2022 Lymphocytes/100 WBC (Bld) 33.3 % 19-41 [facility] Blood monocytes/100 leukocyt esOrdered By: Dr. Martinez on 05-22-2022 Monocytes/100 WBC (Bld) 12.2 % 0-10 [place] Blood platelet mean volumeOr dered By: Dr. Martinez on 05-22-2022 Platelet mean volume (Bld) [Entitic vol] 9.9 fL 6.2-12.0 [facility] Determination of erythrocyte mean corpuscular volume (MCV)Ordered By: Dr. Martinez on 05-22-2022 MCV (RBC) [Entitic vol] 89.7 fL 81-99 [place] Hematocrit Auto (Bld) [Volum e fraction]Ordered By: Dr. Martinez on 05-22-2022 Hematocrit (Bld) [Volume fraction] 32.1 % 37-47 [facility] Laboratory - Hematology and Cell countson 05-22-2022 Erythrocyte distribution width (RBC) [Entitic vol] 45.3 fL 35.1-43.9 [facility] Work Phone: Erythrocyte distribution width (RBC) [Ratio] 13.9 % 11.6-14.6 [facility] Work Phone: Immature granulocytes/100 WBC (Bld) 1.200 % 0.0-0.9 [facility] Work Phone: Comment on above: IG% - Immature Granu locytes (promyelocytes, myelocytes and metamyelocytes) > 1% indicates that a LEFT SHIFT is Present. MCH (RBC) [Entitic mass] 30.4 pg 27.0-32.0 [facility] Work Phone: Nucleated RBC/100 WBC (Bld) [Ratio] 0 % 0-5 [facility] Work Phone: MCHC Auto (RBC) [Mass/Vol]Or dered By: Dr. Martinez on 05-22-2022 MCHC (RBC) [Mass/Vol] 34.0 g/dL 32-36 [facility] No Panel InformationOrdered By: Dr. Martinez on 05-22-2022 30.4 pg 27.0-32.0 [facility] 13.9 % 11.6-14.6 [facility] 45.3 fl 35.1-43.9 [facility] 1.200 % 0.0-0.9 [facility] 0 % 0-5 [facility] Platelets bldOrdered By: Dr. Martinez on 05-22-2022 Platelets (Bld) [#/Vol] 294 10*3/uL 150-450 [facility] Aldosterone/renin activity r atioOrdered By: Dr. Kwok on 05-21-2022 Aldosterone/Renin (P) [Ratio] 0.3 0.0-30.0 [facility] Comment on above: Units: ng/dL per ng/ mL/hrPerformed at: [facility] [id number] Director: Jose Castillo MD, Phone: [phone] Basophil percentageOrdered B y: Dr. Martinez on 05-21-2022 Basophil percentage 4.2 mg/dL 2.5-4.9 [facility] Laboratory - Chemistry and C hemistry - challengeon 05-21-2022 Magnesium [Mass/Vol] 1.8 mg/dL 1.6-2.6 [facility] Work Phone: No Panel InformationOrdered By: Dr. Martinez on 05-21-2022 1.8 mg/dL 1.6-2.6 [facility] Plasma renin measurement (en zymatic activity/volume)Ordered By: Dr. Kwok on 05-21-2022 Renin (P) [Catalytic activity/Vol] 4.801 ng/mL/hr 0.167-5.38 0 [facility] Serum or plasma cortisol alecia surement (mass/volume)Ordered By: Dr. Kwok on 05-21-2022 Cortisol [Mass/Vol] 12.00 ug/dL 3.44-22.45 [facility] Comment on above: Adult (AM) 5.27 - 22 .45 ug/dL Adult (PM) 3.44 - 16.76 ug/dLPlease note revised CORTISOL reference range effective 2019. Thin prep Papanicolaou smear with manual screeningOrdered By: Dr. Kwok on 05-21-2022 Thin prep Papanicolaou smear with manual screening 1.4 ng/dL 0.0-30.0 [facility] Anaerobic cultureOrdered By: Dr. Michel on 05-20-2022 Bacteria identified Anaer cx Nom (Unsp spec) No growth in 5 days. [facility] Basophil percentageOrdered B y: Dr. Booth on 05-20-2022 Basophil percentage 169 mg/dL <200 [facility] Basophil percentage 137 mg/dL <199 [facility] Basophil percentageon 2021 Cholesterol [Mass/Vol] 169 mg/dL <200 [facility] Work Phone: Comment on above: <200 mg/dL [...] Troponin I High Sensitivity 83 pg/mL 3.0-54.0 [facility] Work Phone: Comment on above: Please Note: New Sue t Units and Gender Specific Reference Ranges. For more information see Policy Stat Procedure [place] High Sensitivity Troponin (TNIH) and attachments. No Panel InformationOrdered By: Dr. Booth on 05-20-2022 83 pg/mL 3.0-54.0 [facility] No Panel InformationOrdered By: Dr. Burnham on 05-20-2022 No growth in 5 days. [facility] Serum or plasma cholesterol in HDL measurement (mass/volume)Ordered By: Dr. Booth on 05-20-2022 Cholesterol in HDL [Mass/Vol] 40 mg/dL >40 [facility] Comment on above: The drugs N-Acetylcy steine and Metamizole may falsely depress this assay. Reference Range HDL <40 mg/dL Low HDL Cholesterol HDL >or= 60 mg/dL High HDL Cholesterol Serum or plasma cholesterol in VLDL measurement (mass/volume)Ordered By: Dr. Booth on 05-20-2022 Cholesterol in VLDL [Mass/Vol] 27 mg/dL 5-40 [facility] Serum or plasma low density lipoprotein (LDL) cholesterol measurement (mass/volume)Ordered By: Dr. Booth on 05-20-2022 Cholesterol in LDL [Mass/Vol] 102 mg/dL 0-130 [facility] Absolute lymphocyte counton 05-19-2022 Lymphocytes Auto (Unsp spec) [#/Vol] 1.95 10*3/uL 0.83-4.51 [facility] Work Phone: Anaerobic cultureOrdered By: Dr. Michel on 05-19-2022 Bacteria identified Anaer cx Nom (Unsp spec) No anaerobic bacteria isolated. [facility] Basophil percentageon 2021 Basophils/100 WBC (Bld) 1.0 % 0-1 [facility] [place] Work Phone: Chloride [Moles/Vol] 104 mmol/L 98-107 [facility] Work Phone: Eosinophils/100 WBC (Bld) 3.5 % 0-5 [facility] Work Phone: Glucose [Mass/Vol] 116 mg/dL 74-106 [facility] Work Phone: Comment on above: Fasting Glucose resu lt from 100 to 125 mg/dL suggests IMPAIRED HOMEOSTASIS per A.D.A. criteria. Neutrophils (Bld) [#/Vol] 5.6 10*3/uL 2.0-7.7 [facility] Work Phone: Neutrophils/100 WBC (Bld) 63.2 % 47-70 [facility] Work Phone: Potassium [Moles/Vol] 4.5 mmol/L 3.5-5.1 [facility] Work Phone: Sodium [Moles/Vol] 135 mmol/L 136-145 [facility] Work Phone: WBC (Bld) [#/Vol] 8.9 10*3/uL 4.4-11.0 [facility] Work Phone: Blood erythrocytes count (nu mber/volume)on 05-19-2022 RBC (Bld) [#/Vol] 4.03 10*6/uL 4.2-5.4 [facility] Work Phone: Blood hemoglobin measurement (mass/volume)on 05-19-2022 Hemoglobin (Bld) [Mass/Vol] 12.2 g/dL 12.0-15.0 [facility] Work Phone: Blood lymphocytes/100 leukoc yteson 05-19-2022 Lymphocytes/100 WBC (Bld) 21.9 % 19-41 [facility] Work Phone: Blood monocytes/100 leukocyt eson 05-19-2022 Monocytes/100 WBC (Bld) 8.9 % 0-10 [facility] [place] Work Phone: Blood platelet mean volumeon 05-19-2022 Platelet mean volume (Bld) [Entitic vol] 9.5 fL 6.2-12.0 [facility] Work Phone: Determination of erythrocyte mean corpuscular volume (MCV)on 05-19-2022 MCV (RBC) [Entitic vol] 87.8 fL 81-99 [facility] [place] Work Phone: Hematocrit Auto (Bld) [Volum e fraction]on 05-19-2022 Hematocrit (Bld) [Volume fraction] 35.4 % 37-47 [facility] Work Phone: Laboratory - Chemistry and C hemistry - challengeon 05-19-2022 CO2 [Moles/Vol] 23.0 mmol/L 21.0-32.0 [facility] Work Phone: Natriuretic peptide B (Bld) [Mass/Vol] 296.1 pg/mL 0-100 [facility] Work Phone: Urea nitrogen/Creatinine [Mass ratio] 21.0 mg/mg 10-20 [facility] Work Phone: Laboratory - Hematology and Cell countson 05-19-2022 Erythrocyte distribution width (RBC) [Entitic vol] 43.4 fL 35.1-43.9 [facility] Work Phone: Erythrocyte distribution width (RBC) [Ratio] 13.4 % 11.6-14.6 [facility] Work Phone: Immature granulocytes/100 WBC (Bld) 1.500 % 0.0-0.9 [facility] Work Phone: Comment on above: IG% - Immature Granu locytes (promyelocytes, myelocytes and metamyelocytes) > 1% indicates that a LEFT SHIFT is Present. MCH (RBC) [Entitic mass] 30.3 pg 27.0-32.0 [facility] Work Phone: Nucleated RBC/100 WBC (Bld) [Ratio] 0 % 0-5 [facility] Work Phone: MCHC Auto (RBC) [Mass/Vol]on 05-19-2022 MCHC (RBC) [Mass/Vol] 34.5 g/dL 32-36 [facility] Work Phone: No Panel Informationon 05-19 Estimated Creatinine Clearance Calc 26.08 ml/min [facility] Work Phone: Estimated GFR (MDRD) Amer 55 mL/min >60 [facility] Work Phone: Comment on above: GFR Calc Estimated GFR (MDRD) Non-Af Amer 46 mL/min >60 [facility] Work Phone: Comment on above: Non- GFR Calc Troponin I High Sensitivity 111 pg/mL 3.0-54.0 [facility] Work Phone: Comment on above: Please Note: New Sue t Units and Gender Specific Reference Ranges. For more information see Policy Stat Procedure [place] High Sensitivity Troponin (TNIH) and attachments. No Panel InformationOrdered By: Dr. Mariscal on 05-19-2022 296.1 pg/mL 0-100 [facility] Platelets bldon 05-19-2022 Platelets (Bld) [#/Vol] 326 10*3/uL 150-450 [facility] Work Phone: Serum or plasma calcium brian urement (mass/volume)on 05-19-2022 Calcium [Mass/Vol] 10.3 mg/dL 8.5-10.1 [facility] Work Phone: Serum or plasma creatinine m easurement (mass/volume)on 05-19-2022 Creatinine [Mass/Vol] 1.19 mg/dL 0.55-1.02 [facility] Work Phone: Comment on above: The validity of the calculated GFR & GFRAA in patients over 70 years has not been determined. Clinical correlation is essential. Serum or plasma urea nitroge n measurement (mass/volume)on 05-19-2022 Urea nitrogen [Mass/Vol] 25 mg/dL 7-18 [facility] Work Phone: Thin prep Papanicolaou smear with manual screeningon 05-19-2022 Thin prep Papanicolaou smear with manual screening 8 5-15 [facility] Work Phone: Absolute lymphocyte countOrd ered By: Dr. Martinez on 05-18-2022 Lymphocytes Auto (Unsp spec) [#/Vol] 1.52 10*3/uL 0.83-4.51 [facility] Basophil percentageOrdered B y: Dr. Martinez on 05-18-2022 Basophil percentage 128 mg/dL 74-106 [facility] Basophil percentage 137 mmol/L 136-145 [facility] Basophil percentage 4.5 mmol/L 3.5-5.1 [facility] Basophil percentage 107 mmol/L 98-107 [facility] Basophils (Bld) [#/Vol] 7.2 10*3/uL 4.4-11.0 [facility] Basophils (Bld) [#/Vol] 4.7 10*3/uL 2.0-7.7 [facility] Basophils/100 WBC (Bld) 0.8 % 0-1 [facility] [place] Basophils/100 WBC (Bld) 64.7 % 47-70 [place] Basophils/100 WBC (Bld) 4.1 % 0-5 [facility] [place] Basophil percentageon 2021 Chloride [Moles/Vol] 107 mmol/L 98-107 [facility] Work Phone: Eosinophils/100 WBC (Bld) 4.1 % 0-5 [facility] Work Phone: Glucose [Mass/Vol] 128 mg/dL 74-106 [facility] Work Phone: Comment on above: Fasting Glucose resu lt greater than or equal to 126 mg/dL suggests DIABETES MELLITUS per A.D.A. criteria. Neutrophils (Bld) [#/Vol] 4.7 10*3/uL 2.0-7.7 [facility] Work Phone: Neutrophils/100 WBC (Bld) 64.7 % 47-70 [facility] Work Phone: Potassium [Moles/Vol] 4.5 mmol/L 3.5-5.1 [facility] Work Phone: Sodium [Moles/Vol] 137 mmol/L 136-145 [facility] Work Phone: WBC (Bld) [#/Vol] 7.2 10*3/uL 4.4-11.0 [facility] Work Phone: Blood erythrocytes count (nu mber/volume)Ordered By: Dr. Martinez on 05-18-2022 RBC (Bld) [#/Vol] 3.59 10*6/uL 4.2-5.4 [facility] Blood hemoglobin measurement (mass/volume)Ordered By: Dr. Martinez on 05-18-2022 Hemoglobin (Bld) [Mass/Vol] 10.8 g/dL 12.0-15.0 [facility] Blood lymphocytes/100 leukoc ytesOrdered By: Dr. Martinez on 05-18-2022 Lymphocytes/100 WBC (Bld) 21.0 % 19-41 [facility] Blood monocytes/100 leukocyt esOrdered By: Dr. Martinez on 05-18-2022 Monocytes/100 WBC (Bld) 9.0 % 0-10 [facility] Blood platelet mean volumeOr dered By: Dr. Martinez on 05-18-2022 Platelet mean volume (Bld) [Entitic vol] 10.0 fL 6.2-12.0 [facility] Determination of erythrocyte mean corpuscular volume (MCV)Ordered By: Dr. Martinez on 05-18-2022 MCV (RBC) [Entitic vol] 90.8 fL 81-99 [place] Glucose Glucometer (BldC) [M ass/Vol]Ordered By: Dr. Martinez on 05-18-2022 Glucose [Mass/Vol] 193 mg/dL 74-106 [facility] Comment on above: MANAGEMENT OF PATIEN T CARE PER NURSING PROTOCOL Hematocrit Auto (Bld) [Volum e fraction]Ordered By: Dr. Martinez on 05-18-2022 Hematocrit (Bld) [Volume fraction] 32.6 % 37-47 [facility] Laboratory - Chemistry and C hemistry - challengeon 05-18-2022 CO2 [Moles/Vol] 22.0 mmol/L 21.0-32.0 [facility] Work Phone: Urea nitrogen/Creatinine [Mass ratio] 23.5 mg/mg 10-20 [facility] Work Phone: Laboratory - Hematology and Cell countson 05-18-2022 Erythrocyte distribution width (RBC) [Entitic vol] 46.5 fL 35.1-43.9 [facility] Work Phone: Erythrocyte distribution width (RBC) [Ratio] 14.0 % 11.6-14.6 [facility] Work Phone: Immature granulocytes/100 WBC (Bld) 0.400 % 0.0-0.9 [facility] Work Phone: Comment on above: IG% - Immature Granu locytes (promyelocytes, myelocytes and metamyelocytes) > 1% indicates that a LEFT SHIFT is Present. MCH (RBC) [Entitic mass] 30.1 pg 27.0-32.0 [facility] Work Phone: Nucleated RBC/100 WBC (Bld) [Ratio] 0 % 0-5 [facility] Work Phone: MCHC Auto (RBC) [Mass/Vol]Or dered By: Dr. Martinez on 05-18-2022 MCHC (RBC) [Mass/Vol] 33.1 g/dL 32-36 [facility] No Panel Informationon 05-18 Estimated Creatinine Clearance Calc 26.99 ml/min [facility] Work Phone: Estimated GFR (MDRD) Amer 58 mL/min >60 [facility] Work Phone: Comment on above: GFR Calc Estimated GFR (MDRD) Non-Af Amer 48 mL/min >60 [facility] Work Phone: Comment on above: Non- GFR Calc No Panel InformationOrdered By: Dr. Martinez on 05-18-2022 30.1 pg 27.0-32.0 [facility] 14.0 % 11.6-14.6 [facility] 46.5 fl 35.1-43.9 [facility] 0.400 % 0.0-0.9 [facility] 0 % 0-5 [facility] 48 mL/min >60 [facility] 58 mL/min >60 [facility] 26.99 ml/min [facility] 23.5 RATIO 10-20 [facility] 22.0 mmol/L 21.0-32.0 [facility] Platelets bldOrdered By: Dr. Martinez on 05-18-2022 Platelets (Bld) [#/Vol] 255 10*3/uL 150-450 [facility] Routine wound cultureOrdered By: Dr. Michel on 05-18-2022 Bacteria identified Cx Nom (Wound) No growth aerobically. [facility] Serum or plasma calcium brian urement (mass/volume)Ordered By: Dr. Martinez on 05-18-2022 Calcium [Mass/Vol] 9.4 mg/dL 8.5-10.1 [facility] Serum or plasma creatinine m easurement (mass/volume)Ordered By: Dr. Martinez on 05-18-2022 Creatinine [Mass/Vol] 1.15 mg/dL 0.55-1.02 [facility] Comment on above: The validity of the calculated GFR & GFRAA in patients over 70 years has not been determined. Clinical correlation is essential. Serum or plasma urea nitroge n measurement (mass/volume)Ordered By: Dr. Martinez on 05-18-2022 Urea nitrogen [Mass/Vol] 27 mg/dL 7-18 [facility] Thin prep Papanicolaou smear with manual screeningOrdered By: Dr. Martinez on 05-18-2022 Thin prep Papanicolaou smear with manual screening 8 5-15 [facility] Bacteria identified Cx Nom ( Wound)Ordered By: Dr. Michel on 05-17-2022 Routine wound culture Pseudomonas aeroginosa [facility] Base excessOrdered By: Dr. Jonn govea on 05-17-2022 Base excess Calc (BldV) [Moles/Vol] -1 mmol/L -2-2 [facility] Basophil percentageOrdered B y: Dr. Martinez on 05-17-2022 Basophil percentage 24.5 mmol/L 22-26 [facility] Basophils/100 WBC (Bld) 90 % 95-99 [facility] CO2 (BldA) [Partial pressure ]Ordered By: Dr. Martinez on 05-17-2022 CO2 (Bld) [Partial pressure] 42.8 mm[Hg] 35-45 [facility] No Panel Informationon 05-17 Blood Gas Sample Site L [facility] Work Phone: Blood Gas Specimen Type ART [facility] [place] Work Phone: Blood Gas Total CO2 26 mmol/L [facility] Work Phone: Oxygen Delivery Device Room Air [facility] Work Phone: No Panel InformationOrdered By: Dr. Martinez on 05-17-2022 [facility] L [facility] Room Air [facility] 26 mmol/L [facility] Oxygen (BldA) [Partial press ure]Ordered By: Dr. Martinez on 05-17-2022 Oxygen (Bld) [Partial pressure] 61 mmHG 75-100 [facility] pH measurementOrdered By: Dr Faustino Martinez on 05-17-2022 pH (Unsp spec) 7.37 [pH] 7.35-7.45 [facility] Bacteria identified Cx Nom ( U)Ordered By: Dr. Burnham on 05-16-2022 Culture, urine Mixed Gram Pos & Gra m Neg Org [facility] Basophil percentageOrdered B y: Dr. Luu on 05-16-2022 Basophil percentage 2.6 mg/dL 2.5-4.9 [facility] Basophil percentage 6.0 g/dL 6.4-8.2 [facility] Basophil percentage 1.30 mg/dL 0.20-1.00 [facility] Basophil percentageon 2021 Bilirubin [Mass/Vol] 1.30 mg/dL 0.20-1.00 [facility] Work Phone: Comment on above: For patients on eltr ombopag therapy, use of Dimension [place] TBIL is not recommended. Protein [Mass/Vol] 6.0 g/dL 6.4-8.2 [facility] Work Phone: Blood manual differential co mment interpretation (narrative result)Ordered By: Dr. Luu on 05-16-2022 Manual differential comment David (Bld) [Interp] SCANNED [facility] Blood platelet adequacy dete ction by light microscopyOrdered By: Dr. Luu on 05-16-2022 Platelets LM Ql (Bld) ADEQUATE ADEQ [facility] Laboratory - Chemistry and C hemistry - challengeon 05-16-2022 ALP [Catalytic activity/Vol] 61 U/L 45-117 [facility] Work Phone: ALT [Catalytic activity/Vol] 38 U/L 13-56 [facility] Work Phone: Globulin (S) [Mass/Vol] 3.7 g/dL 2.2-4.2 [facility] [place] Work Phone: Magnesium [Mass/Vol] 1.6 mg/dL 1.6-2.6 [facility] Work Phone: No Panel Informationon 05-16 Thyroid Stimulating Hormone (TSH) 1.50 uIU/mL 0.358-3.74 [facility] Work Phone: No Panel InformationOrdered By: Dr. Luu on 05-16-2022 3.7 g/dL 2.2-4.2 [facility] 61 U/L 45-117 [facility] 38 U/L 13-56 [facility] 1.6 mg/dL 1.6-2.6 [facility] 1.50 uIU/mL 0.358-3.74 [facility] Serum or plasma albumin brian urement (mass/volume)Ordered By: Dr. Luu on 05-16-2022 Albumin [Mass/Vol] 2.3 g/dL 3.2-5.0 [facility] Serum or plasma albumin/glob ulin mass ratioOrdered By: Dr. Luu on 05-16-2022 Albumin/Globulin [Mass ratio] 0.6 {ratio} 0.9-2.4 [facility] Thin prep Papanicolaou smear with manual screeningOrdered By: Dr. Luu on 05-16-2022 Thin prep Papanicolaou smear with manual screening 19 U/L 15-37 [facility] Vancomycin troughOrdered By: Dr. Booth on 05-16-2022 Vancomycin trough [Mass/Vol] 15.9 ug/mL 5.0-15.0 [facility] Comment on above: VANCOMYCIN STANDARED DRUG THERAPY TROUGH LEVEL: 5.0 - 15.0 mg/L VANCOMYCIN HIGH INTENSITY THERAPY TROUGH LEVEL: 15.0 - 20.0 mg/L High Intensity therapy recommended for serious lifethreatening infections include:- Rotkqpzsfy-Vvxqthpkydxy-Qantthvvt (Ventilator/Healtcare Associated)-Sepsis PLEASE CONTACT PHARMACY SERVICES (#[id number]) FOR INTERPRETATIONOF RESULTS. Whole blood hemoglobin A1c/t otal hemoglobin ratio (mass fraction)Ordered By: Dr. Luu on 05-16-2022 HbA1c (Bld) [Mass fraction] 6.1 % 3.8-5.6 [facility] Comment on above: Normal < 5.7 % Predi abetic 5.7 - 6.4 % Diabetic >or= 6.5 % Please note range changes. Gram stain for investigation of transfusion reactionOrdered By: Dr. Michel on 05-15-2022 Microscopic observation Gram stain Nom (Unsp spec) [facility] Basophil percentageOrdered B y: Dr. Burnham on 05-14-2022 Basophil percentage 5-10 SEEN /hpf 0-5 [facility] Basophil percentage 0.9 mmol/L 0.4-2.0 [facility] Basophil percentageon 2021 Chloride [Moles/Vol] 107 mmol/L 98-107 [facility] Work Phone: Glucose [Mass/Vol] 98 mg/dL 74-106 [facility] Work Phone: Lactate [Moles/Vol] 0.9 mmol/L 0.4-2.0 [facility] Work Phone: Potassium [Moles/Vol] 4.7 mmol/L 3.5-5.1 [facility] Work Phone: Sodium [Moles/Vol] 137 mmol/L 136-145 [facility] Work Phone: WBC (Bld) [#/Vol] 12.2 10*3/uL 4.4-11.0 [facility] Work Phone: Bilirubin Test strip Ql (U)O rdered By: Dr. Burnham on 05-14-2022 Bilirubin Ql (U) Negative Negative [facility] Blood erythrocytes count (nu mber/volume)on 05-14-2022 RBC (Bld) [#/Vol] 4.31 10*6/uL 4.2-5.4 [facility] Work Phone: Blood hemoglobin measurement (mass/volume)on 05-14-2022 Hemoglobin (Bld) [Mass/Vol] 12.6 g/dL 12.0-15.0 [facility] Work Phone: Blood platelet mean volumeon 05-14-2022 Platelet mean volume (Bld) [Entitic vol] 10.4 fL 6.2-12.0 [facility] Work Phone: Determination of erythrocyte mean corpuscular volume (MCV)on 05-14-2022 MCV (RBC) [Entitic vol] 88.6 fL 81-99 [place] Work Phone: Hematocrit Auto (Bld) [Volum e fraction]on 05-14-2022 Hematocrit (Bld) [Volume fraction] 38.2 % 37-47 [facility] Work Phone: Influenza virus A and B and SARS-CoV-2 (COVID-19) Ag panel - Upper respiratory specimOrdered By: Dr. Burnham on 05-14-2022 SARS-CoV-2 (COVID-19) RNA KAYLIE+probe Ql (Resp) [facility] Ketones Test strip Ql (U)Ord ered By: Dr. Burnham on 05-14-2022 Ketones Ql (U) Negative Negative [facility] Laboratory - Chemistry and C hemistry - challengeon 05-14-2022 CO2 [Moles/Vol] 26.0 mmol/L 21.0-32.0 [facility] Work Phone: Urea nitrogen/Creatinine [Mass ratio] 25.4 mg/mg 10-20 [facility] Work Phone: Laboratory - Hematology and Cell countson 05-14-2022 Erythrocyte distribution width (RBC) [Entitic vol] 44.1 fL 35.1-43.9 [facility] Work Phone: Erythrocyte distribution width (RBC) [Ratio] 13.6 % 11.6-14.6 [facility] Work Phone: MCH (RBC) [Entitic mass] 29.2 pg 27.0-32.0 [facility] Work Phone: MCHC Auto (RBC) [Mass/Vol]on 05-14-2022 MCHC (RBC) [Mass/Vol] 33.0 g/dL 32-36 [facility] Work Phone: Mucus LM Ql (Urine sed)Order ed By: Dr. Burnham on 05-14-2022 Mucus Ql (Urine sed) 0 SEEN /hpf [facility] Nitrite Test strip Ql (U)Ord ered By: Dr. Burnham on 05-14-2022 Nitrite Ql (U) Positive Negative [facility] No Panel Informationon 05-14 Estimated Creatinine Clearance Calc 23.87 ml/min [facility] Work Phone: Estimated GFR (MDRD) Amer 50 mL/min >60 [facility] Work Phone: Comment on above: GFR Calc Estimated GFR (MDRD) Non-Af Amer 41 mL/min >60 [facility] Work Phone: Comment on above: Non- GFR Calc Platelets bldon 05-14-2022 Platelets (Bld) [#/Vol] 258 10*3/uL 150-450 [facility] Work Phone: Protein Test strip Ql (U)Ord ered By: Dr. Burnham on 05-14-2022 Protein Ql (U) 30 mg/dl Negative [facility] Serum or plasma calcium brian urement (mass/volume)on 05-14-2022 Calcium [Mass/Vol] 9.7 mg/dL 8.5-10.1 [facility] Work Phone: Serum or plasma creatinine m easurement (mass/volume)on 05-14-2022 Creatinine [Mass/Vol] 1.30 mg/dL 0.55-1.02 [facility] Work Phone: Comment on above: The validity of the calculated GFR & GFRAA in patients over 70 years has not been determined. Clinical correlation is essential. Serum or plasma urea nitroge n measurement (mass/volume)on 05-14-2022 Urea nitrogen [Mass/Vol] 33 mg/dL 7-18 [facility] Work Phone: Squamous epithelial cells de tection in urine sediment by light microscopyOrdered By: Dr. Burnham on 05-14-2022 Epithelial cells.squamous LM Ql (Urine sed) 5-10 SEEN /hpf 5-10 [facility] Thin prep Papanicolaou smear with manual screeningon 05-14-2022 Thin prep Papanicolaou smear with manual screening 4 5-15 [facility] Work Phone: Urine blood detectionOrdered By: Dr. Burnham on 05-14-2022 RBC Ql (U) Negative Negative [facility] RBC Ql (U) 0 SEEN /hpf 0-5 [facility] Urine clarityOrdered By: Dr. Burnham on 05-14-2022 Clarity (U) Clear Clear [facility] Urine color determinationOrd ered By: Dr. Burnham on 05-14-2022 Color (U) Straw Yellow [facility] Urine glucose detectionOrder ed By: Dr. Burnham on 05-14-2022 Glucose Ql (U) Normal mg/dl Normal [facility] Urine leukocyte esterase det ection by dipstickOrdered By: Dr. Burnham on 05-14-2022 Leukocyte esterase Test strip Ql (U) 500 /ul Negative [facility] Urine pHOrdered By: Dr. Aleyda mast on 05-14-2022 pH (U) 7.0 [pH] 5.0 - 8.0 [facility] Urine sediment bacteria coun t by microscopy (number/high power field)Ordered By: Dr. Burnham on 05-14-2022 Bacteria LM.HPF (Urine sed) [#/Area] 1 /[HPF] None Seen [facility] Urine specific gravity measu rementOrdered By: Dr. Burnham on 05-14-2022 Specific gravity (U) [Rel density] 1.010 1.002-1.03 0 [facility] Urobilinogen Auto test strip Ql (U)Ordered By: Dr. Burnham on 05-14-2022 Urobilinogen Ql (U) Normal mg/dl Normal [facility] CATECHOLAMINES TOTAL, URINE (89613)Ordered By: Gun Synchronizer on 05-12-2022 DOPamine (24H U) [Mass/Time] 108 {ug/24_hr} Normal 0-510 [facility] Work Phone: Comment on above: Test(s) 322001-Bbpmj phrine, Urine; 827136-Xqeanimbfgddle, Ur; 903890-Ifzzetxb, Urine; 608035-Jstgsztihsbkbbi, Ur; 022953-Tusrufhoztyc, Ur;866012-JHQ, Urinewas developed and its performance characteristics determinedby [employer]. It has not been cleared or approved by the Foodand Drug Administration.PATIENT NOT FASTINGPERFORMED BY: [employer] [address] [id number] Information: START 05/12/22@845AM DOPamine (U) [Mass/Vol] 114 ug/L Normal [facility] Work Phone: Comment on above: Test(s) 284747-Framm phrine, Urine; 760522-Qsqnqojexvcgam, Ur; 325175-Cutsffef, Urine; 189517-Lkkjzkhprjbegej, Ur; 411604-Nopugbhzuyxm, Ur;212737-QIP, Urinewas developed and its performance characteristics determinedby [employer]. It has not been cleared or approved by the Foodand Drug Administration.PATIENT NOT FASTINGPERFORMED BY: [employer] [address] [id number] Information: START 05/12/22@845AM EPINEPHrine (24H U) [Mass/Time] 1 {ug/24_hr} Normal 0-20 [facility] Work Phone: Comment on above: Test(s) 324500-Ledea phrine, Urine; 442847-Lzsegsqobtwbvk, Ur; 648647-Ugmpjjpw, Urine; 461067-Cvldapafkhawrwb, Ur; 180809-Fskxnpgouilw, Ur;063022-SLT, Urinewas developed and its performance characteristics determinedby [facility]. It has not been cleared or approved by the Foodand Drug Administration.PATIENT NOT FASTINGPERFORMED BY: [employer] [id number] Information: START 05/12/22@845AM EPINEPHrine (U) [Mass/Vol] 1 ug/L Normal [facility] Work Phone: Comment on above: Test(s) 706994-Opgvl phrine, Urine; 323279-Ckxbfnmjhqjwyo, Ur; 249733-Zvywjuut, Urine; 073818-Zeedfdgwljbsixk, Ur; 348404-Rjksflezydzl, Ur;970103-LSO, Urinewas developed and its performance characteristics determinedby [facility]. It has not been cleared or approved by the Foodand Drug Administration.PATIENT NOT FASTINGPERFORMED BY: [employer] [id number] Information: START 05/12/22@845AM Norepinephrine (24H U) [Mass/Time] 17 {ug/24_hr} Normal 0-135 [facility] Work Phone: Comment on above: Test(s) 309655-Xvwle phrine, Urine; 155139-Jycwdkzsgaydwh, Ur; 802388-Aeqfplwe, Urine; 622080-Nwzfrhzajdnmbfe, Ur; 173491-Ocysgtcvkqii, Ur;916680-YUN, Urinewas developed and its performance characteristics determinedby [facility]. It has not been cleared or approved by the Foodand Drug Administration.PATIENT NOT FASTINGPERFORMED BY: [facility] [id number] Information: START 05/12/22@845AM Norepinephrine (U) [Mass/Vol] 18 ug/L Normal [facility] Work Phone: Comment on above: Test(s) 879016-Qwloh phrine, Urine; 493740-Rgcdckbevwmxrt, Ur; 375367-Lqxdchre, Urine; 800789-Lfbdzfhvmaqvkau, Ur; 367275-Qzthewfovlzl, Ur;297506-HKN, Urinewas developed and its performance characteristics determinedby [employer]. It has not been cleared or approved by the Foodand Drug Administration.PATIENT NOT FASTINGPERFORMED BY: [employer] [id number] Information: START 05/12/22@845AM METANEPHRINES - URINE ([id number] )Ordered By: Gun Synchronizer on 05-12-2022 Metanephrine (24H U) [Mass/Time] 58 {ug/24_hr} Normal 36-209 [facility] Work Phone: Comment on above: Test(s) 911934-Lmoxa phrine, Urine; 083478-Hpelcxmajqgido, Ur; 494243-Wywmobkj, Urine; 434704-Qjhhmlrxzqizhcw, Ur; 926056-Bqnsozifulgf, Ur;277814-TTW, Urinewas developed and its performance characteristics determinedby [facility]. It has not been cleared or approved by the Foodand Drug Administration.PATIENT NOT FASTINGPERFORMED BY: [employer] [address] [id number] Metanephrines (24H U) [Mass/Vol] 61 ug/L Normal [facility]; [facility] Work Phone: Comment on above: Test(s) 366551-Nqmwj phrine, Urine; 734451-Zjoktqhquewyll, Ur; 251139-Bdhorgfc, Urine; 186629-Faaqriakzypsetg, Ur; 035957-Ghajokrdhfuv, Ur;896683-ELQ, Urinewas developed and its performance characteristics determinedby [employer]. It has not been cleared or approved by the Foodand Drug Administration.PATIENT NOT FASTINGPERFORMED BY: [employer] [id number] Normetanephrine (24H U) [Mass/Time] 244 {ug/24_hr} Normal 131-612 [facility]; [facility] Work Phone: Comment on above: Test(s) 708601-Cafgr phrine, Urine; 585955-Rjlgwynyvduued, Ur; 319843-Appygshj, Urine; 390340-Gutnazqupazjrev, Ur; 466799-Xiddehqsfnjp, Ur;221255-HWK, Urinewas developed and its performance characteristics determinedby [facility]. It has not been cleared or approved by the Foodand Drug Administration.PATIENT NOT FASTINGPERFORMED BY: [employer] [address] [id number] Normetanephrine (24H U) [Mass/Vol] 257 ug/L Normal [facility]; [facility] Work Phone: Comment on above: Test(s) 891547-Jmoln phrine, Urine; 967757-Tpnifirkfacyco, Ur; 744087-Vmrvozbu, Urine; 158751-Xauxvnqxqyqbqou, Ur; 733612-Czcnvlzkmlcs, Ur;268037-BKW, Urinewas developed and its performance characteristics determinedby [facility]. It has not been cleared or approved by the Foodand Drug Administration.PATIENT NOT FASTINGPERFORMED BY: [employer] [address] [id number] URINE VMA ([id number])Ordered By: Gun Synchronizer on 05-12-2022 Vanillylmandelate (24H U) [Mass/Time] 2.8 {mg/24_hr} Normal 0.0-7.5 [facility]; [facility] Work Phone: Comment on above: Test(s) 379291-Tcehz phrine, Urine; 102848-Qkesvzuljlynxa, Ur; 067038-Osczcqix, Urine; 222467-Ipfjmyxtfialiyy, Ur; 334586-Jdsijuebpqaf, Ur;806029-AQR, Urinewas developed and its performance characteristics determinedby [facility]. It has not been cleared or approved by the Foodand Drug Administration.PATIENT NOT FASTINGPERFORMED BY: Apruve [facility] [address] [id number] Vanillylmandelate (U) [Mass/Vol] 2.9 mg/L Normal [facility]; [facility] Work Phone: Comment on above: Test(s) 188045-Uwrtg phrine, Urine; 746053-Qouqlilunkphea, Ur; 480437-Ucplnxqo, Urine; 699879-Xwlpqhwociradce, Ur; 418405-Tsylodiyvkpd, Ur;061723-RAT, Urinewas developed and its performance characteristics determinedby [facility]. It has not been cleared or approved by the Foodand Drug Administration.PATIENT NOT FASTINGPERFORMED BY: [employer] [address] [id number] ALDOSTERONE ([id number])Ordered B y: Gun Synchronizer on 05-10-2022 Aldosterone [Mass/Vol] <1.0 Normal 0.0-30.0 [facility]; [facility] Work Phone: Comment on above: Test(s) 568007-Axklu terone; 450319-Uhpsa Activity, Plasmawas developed and its performance characteristics determinedby [employer]. It has not been cleared or approved by the Foodand Drug Administration.PATIENT NOT FASTINGPERFORMED BY: [employer] [address] [id number] RENIN ([id number])Ordered By: s tem Floor Care Specialist on 05-10-2022 Renin (P) [Catalytic activity/Vol] 0.871 {ng/mL/hr} Normal 0.167-5.38 0 [facility]; [facility] Work Phone: Comment on above: Test(s) 423495-Hozsr terone; 866706-Fdctm Activity, Plasmawas developed and its performance characteristics determinedby [employer]. It has not been cleared or approved by the Foodand Drug Administration.PATIENT NOT FASTINGPERFORMED BY: [employer] [address] [id number] Glucose Glucometer (BldC) [M ass/Vol]Ordered By: Dr. Michel on 04-30-2022 Glucose [Mass/Vol] 114 mg/dL 74-106 [facility] Comment on above: MANAGEMENT OF PATIEN T CARE PER NURSING PROTOCOL Basophil percentageOrdered B y: Dr. Michel on 04-25-2022 Basophil percentage 108 mg/dL 74-106 [facility] Basophil percentage 7.3 g/dL 6.4-8.2 [facility] Basophil percentage 0.90 mg/dL 0.20-1.00 [facility] Basophil percentage 142 mmol/L 136-145 [facility] Basophil percentage 4.7 mmol/L 3.5-5.1 [facility] Basophil percentage 110 mmol/L 98-107 [facility] Basophils (Bld) [#/Vol] 7.8 10*3/uL 4.4-11.0 [facility] Basophil percentageon 2021 Bilirubin [Mass/Vol] 0.90 mg/dL 0.20-1.00 [facility] Work Phone: Comment on above: For patients on eltr ombopag therapy, use of Dimension Rosamond TBIL is not recommended. Chloride [Moles/Vol] 110 mmol/L 98-107 [facility] Work Phone: Glucose [Mass/Vol] 108 mg/dL 74-106 [facility] Work Phone: Comment on above: Fasting Glucose resu lt from 100 to 125 mg/dL suggests IMPAIRED HOMEOSTASIS per A.D.A. criteria. Potassium [Moles/Vol] 4.7 mmol/L 3.5-5.1 [facility] Work Phone: Protein [Mass/Vol] 7.3 g/dL 6.4-8.2 [facility] Work Phone: Sodium [Moles/Vol] 142 mmol/L 136-145 [facility] Work Phone: WBC (Bld) [#/Vol] 7.8 10*3/uL 4.4-11.0 [facility] Work Phone: Blood erythrocytes count (nu mber/volume)Ordered By: Dr. Michel on 04-25-2022 RBC (Bld) [#/Vol] 4.73 10*6/uL 4.2-5.4 [facility] Blood hemoglobin measurement (mass/volume)Ordered By: Dr. Michel on 04-25-2022 Hemoglobin (Bld) [Mass/Vol] 14.3 g/dL 12.0-15.0 [facility] Blood platelet mean volumeOr dered By: Dr. Michel on 04-25-2022 Platelet mean volume (Bld) [Entitic vol] 10.3 fL 6.2-12.0 [facility] Determination of erythrocyte mean corpuscular volume (MCV)Ordered By: Dr. Michel on 04-25-2022 MCV (RBC) [Entitic vol] 91.5 fL 81-99 [place] Hematocrit Auto (Bld) [Volum e fraction]Ordered By: Dr. Michel on 04-25-2022 Hematocrit (Bld) [Volume fraction] 43.3 % 37-47 [facility] Laboratory - Chemistry and C hemistry - challengeon 04-25-2022 ALP [Catalytic activity/Vol] 62 U/L 45-117 [facility] Work Phone: ALT [Catalytic activity/Vol] 24 U/L 13-56 [facility] Work Phone: CO2 [Moles/Vol] 29.0 mmol/L 21.0-32.0 [facility] Work Phone: Globulin (S) [Mass/Vol] 4.0 g/dL 2.2-4.2 [facility] [place] Work Phone: Urea nitrogen/Creatinine [Mass ratio] 29.8 mg/mg 10-20 [facility] Work Phone: Laboratory - Hematology and Cell countson 04-25-2022 Erythrocyte distribution width (RBC) [Entitic vol] 46.3 fL 35.1-43.9 [facility] Work Phone: Erythrocyte distribution width (RBC) [Ratio] 13.5 % 11.6-14.6 [facility] Work Phone: MCH (RBC) [Entitic mass] 30.2 pg 27.0-32.0 [facility] Work Phone: MCHC Auto (RBC) [Mass/Vol]Or dered By: Dr. Michel on 04-25-2022 MCHC (RBC) [Mass/Vol] 33.0 g/dL 32-36 [facility] No Panel Informationon 04-25 Estimated GFR (MDRD) Amer 50 mL/min >60 [facility] Work Phone: Comment on above: GFR Calc Estimated GFR (MDRD) Non-Af Amer 41 mL/min >60 [facility] Work Phone: Comment on above: Non- GFR Calc No Panel InformationOrdered By: Dr. Michel on 04-25-2022 30.2 pg 27.0-32.0 [facility] 13.5 % 11.6-14.6 [facility] 46.3 fl 35.1-43.9 [facility] 41 mL/min >60 [facility] 50 mL/min >60 [facility] 29.8 RATIO 10-20 [facility] 4.0 g/dL 2.2-4.2 [facility] 62 U/L 45-117 [facility] 24 U/L 13-56 [facility] 29.0 mmol/L 21.0-32.0 [facility] Platelets bldOrdered By: Dr. Michel on 04-25-2022 Platelets (Bld) [#/Vol] 213 10*3/uL 150-450 [facility] Serum or plasma albumin brian urement (mass/volume)Ordered By: Dr. Michel on 04-25-2022 Albumin [Mass/Vol] 3.3 g/dL 3.2-5.0 [facility] Serum or plasma albumin/glob ulin mass ratioOrdered By: Dr. Michel on 04-25-2022 Albumin/Globulin [Mass ratio] 0.8 {ratio} 0.9-2.4 [facility] Serum or plasma calcium brian urement (mass/volume)Ordered By: Dr. Michel on 04-25-2022 Calcium [Mass/Vol] 10.2 mg/dL 8.5-10.1 [facility] Serum or plasma creatinine m easurement (mass/volume)Ordered By: Dr. Michel on 04-25-2022 Creatinine [Mass/Vol] 1.31 mg/dL 0.55-1.02 [facility] Comment on above: The validity of the calculated GFR & GFRAA in patients over 70 years has not been determined. Clinical correlation is essential. Serum or plasma urea nitroge n measurement (mass/volume)Ordered By: Dr. Michel on 04-25-2022 Urea nitrogen [Mass/Vol] 39 mg/dL 7-18 [facility] Thin prep Papanicolaou smear with manual screeningOrdered By: Dr. Michel on 04-25-2022 Thin prep Papanicolaou smear with manual screening 14 U/L 15-37 [facility] Thin prep Papanicolaou smear with manual screening 3 5-15 [facility] ACTH ([id number])Ordered By: Syst em Floor Care Specialist on 03-11-2022 Corticotropin (P) [Mass/Vol] 32.2 pg/mL Normal 7.2-63.3 [facility]; [facility] Work Phone: Comment on above: ACTH reference inter sophia for samples collected between 7 and 10 AM. PATIENT NOT FASTINGP ERFORMED BY: [employer] [id number] Cortisol ([id number])Ordered By: Gun Synchronizer on 03-11-2022 Cortisol [Mass/Vol] 11.4 ug/dL Normal [facility]; [facility] Work Phone: Comment on above: Cortisol AM 6.2 - 19 .4 Cortisol PM 2.3 - 11.9 PATIENT NOT FASTINGP ERFORMED BY: [employer] [id number] Catecholamines,24-Hour Urine ([id number])Ordered By: Gun Synchronizer on 03-05-2022 DOPamine (24H U) [Mass/Time] 159 {ug/24_hr} Normal 0-510 [facility]; [facility] Work Phone: Comment on above: Test(s) 607926-Hxhvw phrine, Urine; 352357-Dhbbeazissrrnd, Ur; 991310-Nmbipkcs, Urine; 128143-Onjqxyrkvhfxzdf, Ur; 811767-Vuezavpymwok, Ur;173206-Yimmkgvn,F,ug/L,Uwas developed and its performance characteristics determinedby [employer]. It has not been cleared or approved by the Foodand Drug Administration.PATIENT NOT FASTINGPERFORMED BY: [address] [id number] DOPamine (U) [Mass/Vol] 106 ug/L Normal [facility]; [facility] Work Phone: Comment on above: Test(s) 458855-Iiewi phrine, Urine; 076535-Shmvfgczjcymfn, Ur; 808828-Qzosxxmb, Urine; 864835-Kdcmoraazcjdbtj, Ur; 149227-Wtydiinlmdzt, Ur;710044-Ekliuoqe,F,ug/L,Uwas developed and its performance characteristics determinedby [facility]. It has not been cleared or approved by the Foodand Drug Administration.PATIENT NOT FASTINGPERFORMED BY: [employer] [address] [id number] EPINEPHrine (24H U) [Mass/Time] 2 {ug/24_hr} Normal 0-20 [facility]; [facility] Work Phone: Comment on above: Test(s) 029648-Xxjcm phrine, Urine; 767860-Isdjonlxouqvvh, Ur; 794521-Vduucylu, Urine; 094077-Jbjerydmyfrpfmq, Ur; 552423-Uwvpbairijqp, Ur;458545-Qbnolbun,F,ug/L,Uwas developed and its performance characteristics determinedby [facility]. It has not been cleared or approved by the Foodand Drug Administration.PATIENT NOT FASTINGPERFORMED BY: [employer] [address] [id number] EPINEPHrine (U) [Mass/Vol] 1 ug/L Normal [facility]; [facility] Work Phone: Comment on above: Test(s) 146230-Sfyhj phrine, Urine; 990888-Seqfezrgjnydwy, Ur; 461003-Rtficvsz, Urine; 765438-Bfjusdogaziflhz, Ur; 913014-Vsqvysaivsku, Ur;596236-Rfdmaacb,F,ug/L,Uwas developed and its performance characteristics determinedby [facility]. It has not been cleared or approved by the Foodand Drug Administration.PATIENT NOT FASTINGPERFORMED BY: [employer] [address] [id number] Norepinephrine (24H U) [Mass/Time] 30 {ug/24_hr} Normal 0-135 [facility]; [facility] Work Phone: Comment on above: Test(s) 760875-Zgamt phrine, Urine; 136226-Djwgmvfhjvgmmi, Ur; 141944-Bylhmdog, Urine; 451328-Tahjdogjrzmjwow, Ur; 681128-Vjkrvjyxktrm, Ur;028759-Zmvrivnx,F,ug/L,Uwas developed and its performance characteristics determinedby [employer]. It has not been cleared or approved by the Foodand Drug Administration.PATIENT NOT FASTINGPERFORMED BY: [employer] [address] [id number] Norepinephrine (U) [Mass/Vol] 20 ug/L Normal [facility]; [facility] Work Phone: Comment on above: Test(s) 014330-Coech phrine, Urine; 330944-Rmxinjymmxsqxx, Ur; 468838-Rgqopqyl, Urine; 677562-Umsfbapfxvwlula, Ur; 283491-Dgdddpgofilw, Ur;359965-Oszjfzfu,F,ug/L,Uwas developed and its performance characteristics determinedby [employer]. It has not been cleared or approved by the Foodand Drug Administration.PATIENT NOT FASTINGPERFORMED BY: [employer] [address] [id number] Cortisol,Urinary Free 24- Ho ur Urine ([id number])Ordered By: Gun Synchronizer on 03-05-2022 Cortisol Free (24H U) [Mass/Time] 11 {ug/24_hr} Normal 3-49 [facility]; [facility] Work Phone: Comment on above: Test(s) 783748-Pogvj phrine, Urine; 877386-Cmqnbifzmriikh, Ur; 111615-Zivnbvze, Urine; 448197-Ruwhvgmcowfggwm, Ur; 950379-Kgruaornfqwp, Ur;737767-Bqlbrxhj,F,ug/L,Uwas developed and its performance characteristics determinedby [facility]. It has not been cleared or approved by the Foodand Drug Administration.PATIENT NOT FASTINGPERFORMED BY: [employer] [id number] Cortisol Free (U) [Mass/Vol] 7 ug/L Normal [facility]; [facility] Work Phone: Comment on above: Test(s) 172656-Hqxgs phrine, Urine; 828960-Rizypodgvmioek, Ur; 037689-Ahhmnxkv, Urine; 022716-Ktylrjsxklgikrs, Ur; 244145-Yafneddznoji, Ur;069410-Eesuzkfo,F,ug/L,Uwas developed and its performance characteristics determinedby [facility] [employer]. It has not been cleared or approved by the Foodand Drug Administration.PATIENT NOT FASTINGPERFORMED BY: [employer] [id number] METANEPHRINES - URINE ([id number] )Ordered By: Gun Synchronizer on 03-05-2022 Metanephrine (24H U) [Mass/Time] 66 {ug/24_hr} Normal 36-209 [facility]; [facility] Work Phone: Comment on above: 24 hr urine; Test(s) 637800-Ascxqwzstdc, Urine; 012846-Aypnmurtfwqdci, Ur; 698589-Iqziodwr, Urine; 326837-Wdowosumcdzxbih, Ur; 680679-Igbuycclbxze, Ur;239142-Ljookmjg,F,ug/L,Uwas developed and its performance characteristics determinedby [employer]. It has not been cleared or approved by the Foodand Drug Administration.PATIENT NOT FASTINGPERFORMED BY: [employer] [address] [id number] Metanephrines (24H U) [Mass/Vol] 44 ug/L Normal [facility]; [facility] Work Phone: Comment on above: 24 hr urine; Test(s) 786197-Mramxuhsbah, Urine; 014880-Axefgnmmizynog, Ur; 205773-Mfaontba, Urine; 960562-Xkrqrchhlhqbsdu, Ur; 829372-Xdkgstdielrt, Ur;940688-Vbmctokg,F,ug/L,Uwas developed and its performance characteristics determinedby [employer]. It has not been cleared or approved by the Foodand Drug Administration.PATIENT NOT FASTINGPERFORMED BY: [employer] [id number] Normetanephrine (24H U) [Mass/Time] 296 {ug/24_hr} Normal 131-612 [facility]; [facility] Work Phone: Comment on above: 24 hr urine; Test(s) 754773-Trimmrcmxxz, Urine; 127465-Vebxwcrohjmtdz, Ur; 388699-Udsokqmw, Urine; 484172-Aqzzpwopfebssmj, Ur; 480697-Byxtgcxnbuwk, Ur;847613-Zasugvgs,F,ug/L,Uwas developed and its performance characteristics determinedby [employer]. It has not been cleared or approved by the Foodand Drug Administration.PATIENT NOT FASTINGPERFORMED BY: [employer] [address] [id number] Normetanephrine (24H U) [Mass/Vol] 197 ug/L Normal [facility]; [facility] Work Phone: Comment on above: 24 hr urine; Test(s) 004199-Eirfdabmidl, Urine; 996171-Imecppnepxhkbf, Ur; 056490-Kyudpzua, Urine; 549373-Uwoaufrqbqnrazz, Ur; 279197-Ljenkculxrtk, Ur;238451-Nreylktk,F,ug/L,Uwas developed and its performance characteristics determinedby [employer]. It has not been cleared or approved by the Foodand Drug Administration.PATIENT NOT FASTINGPERFORMED BY: [employer] [address] [id number] Absolute lymphocyte counton 02-18-2022 Lymphocytes Auto (Unsp spec) [#/Vol] 2.75 10*3/uL 0.83-4.51 [facility] Work Phone: Basophil percentageon 2021 Basophils/100 WBC (Bld) 0.7 % 0-1 [facility] [place] Work Phone: Bilirubin [Mass/Vol] 1.20 mg/dL 0.20-1.00 [facility] Work Phone: Comment on above: For patients on eltr ombopag therapy, use of Dimension [place] TBIL is not recommended. Chloride [Moles/Vol] 109 mmol/L 98-107 [facility] Work Phone: Eosinophils/100 WBC (Bld) 3.4 % 0-5 [facility] Work Phone: Glucose [Mass/Vol] 92 mg/dL 74-106 [facility] Work Phone: Neutrophils (Bld) [#/Vol] 6.1 10*3/uL 2.0-7.7 [facility] Work Phone: Neutrophils/100 WBC (Bld) 59.7 % 47-70 [facility] Work Phone: Potassium [Moles/Vol] 4.6 mmol/L 3.5-5.1 [facility] Work Phone: Protein [Mass/Vol] 7.2 g/dL 6.4-8.2 [facility] Work [facility]: Sodium [Moles/Vol] 137 mmol/L 136-145 [facility] Work Phone: WBC (Bld) [#/Vol] 10.1 10*3/uL 4.4-11.0 [facility] Work [facility]: Blood erythrocytes count (nu mber/volume)on 02-18-2022 RBC (Bld) [#/Vol] 4.40 10*6/uL 4.2-5.4 [facility] Work Phone: Blood hemoglobin measurement (mass/volume)on 02-18-2022 Hemoglobin (Bld) [Mass/Vol] 13.1 g/dL 12.0-15.0 [facility] Work Phone: Blood lymphocytes/100 leukoc yteson 02-18-2022 Lymphocytes/100 WBC (Bld) 27.1 % 19-41 [facility] Work Phone: Blood monocytes/100 leukocyt eson 02-18-2022 Monocytes/100 WBC (Bld) 8.8 % 0-10 [facility] [place] Work Phone: Blood platelet mean volumeon 02-18-2022 Platelet mean volume (Bld) [Entitic vol] 10.6 fL 6.2-12.0 [facility] Work Phone: Determination of erythrocyte mean corpuscular volume (MCV)on 02-18-2022 MCV (RBC) [Entitic vol] 90.9 fL 81-99 [facility] [place] Work Phone: Erythrocyte sedimentation ra nyasia 02-18-2022 ESR (Bld) [Velocity] 26 mm/h 0-30 [facility] Work Phone: Hematocrit Auto (Bld) [Volum e fraction]on 02-18-2022 Hematocrit (Bld) [Volume fraction] 40.0 % 37-47 [facility] Work Phone: Laboratory - Chemistry and C hemistry - challengeon 02-18-2022 ALP [Catalytic activity/Vol] 67 U/L 45-117 [facility] Work Phone: ALT [Catalytic activity/Vol] 29 U/L 13-56 [facility] Work Phone: CO2 [Moles/Vol] 25.0 mmol/L 21.0-32.0 [facility] Work Phone: Globulin (S) [Mass/Vol] 3.8 g/dL 2.2-4.2 [facility] [place] Work Phone: Urea nitrogen/Creatinine [Mass ratio] 29.5 mg/mg 10-20 [facility] Work Phone: Laboratory - Hematology and Cell countson 02-18-2022 Erythrocyte distribution width (RBC) [Entitic vol] 45.6 fL 35.1-43.9 [facility] Work Phone: Erythrocyte distribution width (RBC) [Ratio] 13.7 % 11.6-14.6 [facility] Work Phone: Immature granulocytes/100 WBC (Bld) 0.300 % 0.0-0.9 [facility] Work Phone: Comment on above: IG% - Immature Granu locytes (promyelocytes, myelocytes and metamyelocytes) > 1% indicates that a LEFT SHIFT is Present. MCH (RBC) [Entitic mass] 29.8 pg 27.0-32.0 [facility] Work Phone: Nucleated RBC/100 WBC (Bld) [Ratio] 0 % 0-5 [facility] Work Phone: MCHC Auto (RBC) [Mass/Vol]on 02-18-2022 MCHC (RBC) [Mass/Vol] 32.8 g/dL 32-36 [facility] Work Phone: No Panel Informationon 02-18 Estimated GFR (MDRD) Amer 59 mL/min >60 [facility] Work Phone: Comment on above: GFR Calc Estimated GFR (MDRD) Non-Af Amer 49 mL/min >60 [facility] Work Phone: Comment on above: Non- GFR Calc Platelets bldon 02-18-2022 Platelets (Bld) [#/Vol] 252 10*3/uL 150-450 [facility] Work Phone: Serum or plasma C reactive p rotein measurement (mass/volume)on 02-18-2022 CRP [Mass/Vol] 8.28 mg/L 0.0-3.0 [facility] Work Phone: Comment on above: C-Reactive Protein ( CRP) provides useful information for thediagnosis, therapy and monitoring of inflammatory processesand associated diseases. For the evaluation of Relative Riskfor Cardiovascular Disease, a High Sensitivity CRP (HSCRP)should be ordered. Serum or plasma albumin brian urement (mass/volume)on 02-18-2022 Albumin [Mass/Vol] 3.4 g/dL 3.2-5.0 [facility] Work Phone: Serum or plasma albumin/glob ulin mass ratioon 02-18-2022 Albumin/Globulin [Mass ratio] 0.9 {ratio} 0.9-2.4 [facility] Work Phone: Serum or plasma calcium brian urement (mass/volume)on 02-18-2022 Calcium [Mass/Vol] 10.0 mg/dL 8.5-10.1 [facility] Work Phone: Serum or plasma creatinine m easurement (mass/volume)on 02-18-2022 Creatinine [Mass/Vol] 1.12 mg/dL 0.55-1.02 [facility] Work Phone: Comment on above: The validity of the calculated GFR & GFRAA in patients over 70 years has not been determined. Clinical correlation is essential. Serum or plasma urea nitroge n measurement (mass/volume)on 02-18-2022 Urea nitrogen [Mass/Vol] 33 mg/dL 7-18 [facility] Work Phone: Thin prep Papanicolaou smear with manual screeningon 02-18-2022 Thin prep Papanicolaou smear with manual screening 19 U/L 15-37 [facility] Work Phone: Thin prep Papanicolaou smear with manual screening 3 5-15 [facility] Work Phone: Blood Glucose , Office ([phone])Ordered By: Keri Johnson on 12-31-2021 Glucose Glucometer (BldC) [Moles/Vol] 96 1 Normal [facility]; [facility] Work Phone: HgA1C , Office ([phone])Ordere d By: Martina Lal on 12-31-2021 HbA1c (Bld) [Mass fraction] 5.9 % Normal 4.6 - 7.1 [facility]; [facility] Work Phone: POTASSIUM SERUM ([id number])Order ed By: Gun Synchronizer on 12-19-2021 Potassium [Moles/Vol] 5.4 mmol/L Abnormal 3.5-5.2 [facility] prehensive Internal Medicine; [facility] Work Phone: Comment on above: PATIENT NOT FASTINGP ERFORMED BY: HALEIGH [facility] [id number] [facility] [id number] METABOLIC PANEL, COMPREHENSI VE ([id number])Ordered By: Gun Synchronizer on 12-18-2021 Albumin [Mass/Vol] 4.2 g/dL Normal 3.6-4.6 [facility]; [facility] Work Phone: Comment on above: PATIENT NOT FASTINGP ERFORMED BY: CC video [facility] [id number] [facility]ram[facility] [id number] Albumin/Globulin [Mass ratio] 1.6 {ratio} Normal 1.2-2.2 [facility]; [facility] Work Phone: Comment on above: PATIENT NOT FASTINGP ERFORMED BY: HALEIGH [facility] [id number]Dublin [place] [id number] ALP [Catalytic activity/Vol] 67 U/L Normal 44-121 [facility]; [facility] Work Phone: Comment on above: PATIENT NOT FASTINGP ERFORMED BY: CB [facility] [id number]Dublin [place] [id number] ALT [Catalytic activity/Vol] 13 U/L Normal 0-32 [facility]; [facility] Work Phone: Comment on above: PATIENT NOT FASTINGP ERFORMED BY: CB [facility] [id number]Dublin [place] [id number] AST [Catalytic activity/Vol] 18 U/L Normal 0-40 [facility]; [facility] Work Phone: Comment on above: PATIENT NOT FASTINGP ERFORMED BY: CB [facility] [id number]Dublin [place] [id number] Bilirubin [Mass/Vol] 1.1 mg/dL Normal 0.0-1.2 [facility]; [facility] Work Phone: Comment on above: PATIENT NOT FASTINGP ERFORMED BY: CB [facility] Rpixwc3715 [address] RoadDublin [place] [id number] Calcium [Mass/Vol] 10.1 mg/dL Normal 8.7-10.3 [facility] Internal Medicine; [facility] Work Phone: Comment on above: PATIENT NOT FASTINGP ERFORMED BY: CB [facility] Rbmkxv3946 [address] RoadDublin [place] [id number] Chloride [Moles/Vol] 105 mmol/L Normal 96-106 [facility] rehensive Internal Medicine; [facility] Work Phone: Comment on above: PATIENT NOT FASTINGP ERFORMED BY: CB [facility] Nglkhc6114 [address]Dublin [place] [id number] CO2 [Moles/Vol] 18 mmol/L Abnormal 20-29 [facility]; [facility] Work Phone: Comment on above: PATIENT NOT FASTINGP ERFORMED BY: HALEIGH Labcoedgardo WarrenJctnhf5380 [facility]in [place] [id number] Creatinine [Mass/Vol] 1.72 mg/dL Abnormal 0.57-1.00 Com prehensive Internal Medicine; [facility] Work Phone: Comment on above: PATIENT NOT FASTINGP ERFORMED BY: LabcoHudson County Meadowview HospitalRvemjc9293 [facility] [id number] GFR/1.73 sq M.predicted among non-blacks MDRD (S/P/Bld) [Vol rate/Area] 29 mL/min/{1.73_m2} Abnormal Comprehensiv e Internal Medicine; [facility] Work Phone: Comment on above: PATIENT NOT FASTINGP ERFORMED BY: LabSelect [facility]ty Hospital6370 [facility] [id number] Globulin (S) [Mass/Vol] 2.6 g/dL Normal 1.5-4.[address] [facility]; [facility] Work Phone: Comment on above: PATIENT NOT FASTINGP ERFORMED BY: HALEIGH [facility] Zyihpo2397 [facility] [id number] Glucose [Mass/Vol] 113 mg/dL Abnormal 65-99 [facility]; [facility] Work Phone: Comment on above: PATIENT NOT FASTINGP ERFORMED BY: [facility] Hklolc0126 [facility] [id number] Potassium [Moles/Vol] 5.7 mmol/L Abnormal 3.5-5.2 [facility] prehensive Internal Medicine; [facility] Work Phone: Comment on above: Client Requested Fla g PATIENT NOT FASTINGP ERFORMED BY: [facility] Auynjc2117 [facility] [id number] Protein [Mass/Vol] 6.8 g/dL Normal 6.0-8.5 Compre hensive Internal Medicine; [facility] Work Phone: Comment on above: PATIENT NOT FASTINGP ERFORMED BY: HALEIGH [facility] Yashrm3103 [address]Dublin [place] [id number] Sodium [Moles/Vol] 139 mmol/L Normal 134-144 [facility] Internal Medicine; [facility] Work Phone: Comment on above: PATIENT NOT FASTINGP ERFORMED BY: CB [facility] Acwpyq8436 [address] RoadDublin [place] [id number] Urea nitrogen [Mass/Vol] 50 mg/dL Abnormal 8-27 [facility]; [facility] Work Phone: Comment on above: PATIENT NOT FASTINGP ERFORMED BY: HALEIGH [facility] Dolfkv1826 [address] RoadDublin [place] [id number] Urea nitrogen/Creatinine [Mass ratio] 29 mg/mg Abnormal 12-28 [facility]; [facility] Work Phone: Comment on above: PATIENT NOT FASTINGP ERFORMED BY: HALEIGH [facility] Yioqln2017 [address]Dublin [place] [id number] PARATHORMONE ([id number])Ordered By: Gun Synchronizer on 12-18-2021 Parathyrin.intact [Mass/Vol] 47 pg/mL Normal 15-65 [facility]; [facility] Work Phone: Comment on above: PATIENT NOT FASTINGP ERFORMED BY: HALEIGH [facility] Wcsymo3821 [address] RoadDublin [place] [id number] No Panel Informationon 10-12 Parathyroid Hormone (Intact) 85.8 pg/mL 18.4-80.1 [facility] Work Phone: Serum or plasma calcium brian urement (mass/volume)on 10-12-2021 Calcium [Mass/Vol] 10.0 mg/dL 8.5-10.1 [facility] Work Phone: Renal function Panel ([id number]) Ordered By: Gun Synchronizer on 10-03-2021 Albumin [Mass/Vol] 4.1 g/dL Normal 3.6-4.6 [facility] Internal Medicine; [facility] Work Phone: Comment on above: PATIENT NOT FASTINGP ERFORMED BY: HALEIGH [facility] Yfytpz7026 [address] RoadDublin [place] [id number] Calcium [Mass/Vol] 10.6 mg/dL Abnormal 8.7-10.3 [facility]; [facility] Work Phone: Comment on above: PATIENT NOT FASTINGP ERFORMED BY: CB [facility] Hwhamx3558 [address] RoadDublin [place] [id number] Chloride [Moles/Vol] 100 mmol/L Normal 96-106 Comp rehensive Internal Medicine; [facility] Work Phone: Comment on above: PATIENT NOT FASTINGP ERFORMED BY: CB [facility] Grckxe8762 [address] RoadDublin [place] [id number] CO2 [Moles/Vol] 24 mmol/L Normal 20-29 Com[facility]hen [facility] Internal [facility]; [facility] Work Phone: Comment on above: PATIENT NOT FASTINGP ERFORMED BY: CB [facility] Nqggdt2361 [address]Dublin [place] [id number] Creatinine [Mass/Vol] 1.11 mg/dL Abnormal 0.57-1.00 [facility]; [facility] Work Phone: Comment on above: PATIENT NOT FASTINGP ERFORMED BY: CB [facility] Djsnaq9439 [address] RoadDublin [place] [id number] GFR/1.73 sq M.predicted among non-blacks MDRD (S/P/Bld) [Vol rate/Area] 49 mL/min/{1.73_m2} Abnormal Comprehensiv e Internal Medicine; [facility] Work Phone: Comment on above: PATIENT NOT FASTINGP ERFORMED BY: CB [facility] Rtoias8066 [address]Dublin [place] [id number] Glucose [Mass/Vol] 132 mg/dL Abnormal 65-99 [facility] Internal Medicine; [facility] Work Phone: Comment on above: PATIENT NOT FASTINGP ERFORMED BY: CB [facility] Fltgnt2607 [address] RoadDublin [place] [id number] Phosphate [Mass/Vol] 3.1 mg/dL Normal 3.0-4.3 [facility]; [facility] Work Phone: Comment on above: PATIENT NOT FASTINGP ERFORMED BY: [facility]6370 [facility] [id number] Potassium [Moles/Vol] 4.4 mmol/L Normal 3.5-5.2 [facility]; [facility] Work Phone: Comment on above: PATIENT NOT FASTINGP ERFORMED BY: [facility]6370 [facility] [id number] Sodium [Moles/Vol] 140 mmol/L Normal 134-144 [facility] Internal Medicine; [facility] Work Phone: Comment on above: PATIENT NOT FASTINGP ERFORMED BY: [facility]6370 [facility] [id number] Urea nitrogen [Mass/Vol] 22 mg/dL Normal 8-27 [facility]; [facility] Work Phone: Comment on above: PATIENT NOT FASTINGP ERFORMED BY: [facility]6370 [facility] [id number] Urea nitrogen/Creatinine [Mass ratio] 20 mg/mg Normal 12-28 [facility]; [facility] Work Phone: Comment on above: PATIENT NOT FASTINGP ERFORMED BY: [facility]6370 [facility] [id number] ALDOSTERONE ([id number])Ordered B y: Gun Synchronizer on 10-01-2021 Aldosterone [Mass/Vol] 2.6 ng/dL Normal 0.0-30.0 [facility] Internal Medicine; [facility] Work Phone: Comment on above: Test(s) 660760-Inkzi terone; 267886-Kmyzg Activity, Plasmawas developed and its performance characteristics determinedby [facility]. It has not been cleared or approved by the Foodand Drug Administration.PATIENT NOT FASTINGPERFORMED BY: [address] [id number] RENIN ([id number])Ordered By: [employer] (formerly [employer]isl[employer])s tem Floor Care Specialist on 10-01-2021 Renin (P) [Catalytic activity/Vol] 0.839 {ng/mL/hr} Normal 0.167-5.38 0 [facility]; [facility] Work Phone: Comment on above: Test(s) 320717-Acokq terone; 917220-Fsfgv Activity, Plasmawas developed and its performance characteristics determinedby [facility]. It has not been cleared or approved by the Foodand Drug Administration.PATIENT NOT FASTINGPERFORMED BY: [employer] [address] [id number] CATECHOLAMINES TOTAL, URINE ([id number])Ordered By: Gun Synchronizer on 09-30-2021 DOPamine (24H U) [Mass/Time] 182 {ug/24_hr} Normal 0-510 [facility]; [facility] Work Phone: Comment on above: Test(s) 988665-Mwwuw phrine, Urine; 700872-Ffwhdjnijjadcy, Ur; 516091-Bebjvmvq, Urine; 751341-Sjotpvvwertwskx, Ur; 690725-Mbdldrvwjndw, Ur;648455-FEO, Urinewas developed and its performance characteristics determinedby [facility]. It has not been cleared or approved by the Foodand Drug Administration.PATIENT NOT FASTINGPERFORMED BY: [employer] [address] [id number] Information: START 09/30/21@9AM DOPamine (U) [Mass/Vol] 140 ug/L Normal C omprehensive Internal Medicine; [facility] Work Phone: Comment on above: Test(s) 191173-Snhui phrine, Urine; 586888-Gninsujbkernir, Ur; 067185-Yvxoznun, Urine; 982784-Nkvpjvxfbpjdytk, Ur; 511870-Xvequnvnrblm, Ur;245339-SDK, Urinewas developed and its performance characteristics determinedby [facility]. It has not been cleared or approved by the Foodand Drug Administration.PATIENT NOT FASTINGPERFORMED BY: [employer] [address] [id number] Information: START 09/30/21@9AM EPINEPHrine (24H U) [Mass/Time] 4 {ug/24_hr} Normal 0-20 [facility]; [facility] Work Phone: Comment on above: Test(s) 666590-Wlqin phrine, Urine; 222085-Cwgqonxdepfxyj, Ur; 714666-Gqwauwfv, Urine; 336747-Dfsznspejyifrqz, Ur; 551261-Riyfzapygzcq, Ur;929982-OAE, Urinewas developed and its performance characteristics determinedby [facility]. It has not been cleared or approved by the Foodand Drug Administration.PATIENT NOT FASTINGPERFORMED BY: [employer] [address] [id number] Information: START 09/30/21@9AM EPINEPHrine (U) [Mass/Vol] 3 ug/L Normal [facility]; [facility] Work Phone: Comment on above: Test(s) 711610-Frcqo phrine, Urine; 956538-Sdeehloznlmyow, Ur; 523751-Mlibgybz, Urine; 011817-Cjxjycyxwtypkgb, Ur; 667073-Uniffyhuprvq, Ur;096226-EGR, Urinewas developed and its performance characteristics determinedby [facility]. It has not been cleared or approved by the Foodand Drug Administration.PATIENT NOT FASTINGPERFORMED BY: [employer] [address] [id number] Information: START 09/30/21@9AM Norepinephrine (24H U) [Mass/Time] 52 {ug/24_hr} Normal 0-135 [facility]; [facility] Work Phone: Comment on above: Test(s) 212463-Arycc phrine, Urine; 968146-Fngwphwgutfudj, Ur; 627239-Aoeafmjn, Urine; 436766-Sopeohdhjqgifvw, Ur; 436147-Zgqbouwxhtpf, Ur;839168-LXW, Urinewas developed and its performance characteristics determinedby [facility]. It has not been cleared or approved by the Foodand Drug Administration.PATIENT NOT FASTINGPERFORMED BY: [employer] [address] [id number] Information: START 09/30/21@9AM Norepinephrine (U) [Mass/Vol] 40 ug/L Normal [facility]; [facility] Work Phone: Comment on above: Test(s) 657992-Ztbem phrine, Urine; 182790-Jubzyyknilsemg, Ur; 901695-Wkcstfgc, Urine; 918632-Rnwvmjffpsfarqy, Ur; 396277-Gjpycnunkkhf, Ur;898457-TDG, Urinewas developed and its performance characteristics determinedby [facility]. It has not been cleared or approved by the Foodand Drug Administration.PATIENT NOT FASTINGPERFORMED BY: [employer] [address] [id number] Information: START 09/30/21@9AM METANEPHRINES - URINE (88793 )Ordered By: Gun Synchronizer on 09-30-2021 Metanephrine (24H U) [Mass/Time] 61 {ug/24_hr} Normal 36-209 [facility]; [facility] Work Phone: Comment on above: Test(s) 938703-Drqzu phrine, Urine; 486627-Mdfxhteuhbiflf, Ur; 940371-Thnlbfxc, Urine; 129344-Dgenwsspqntchse, Ur; 385231-Crjgtqacpekt, Ur;361577-VEA, Urinewas developed and its performance characteristics determinedby [facility]. It has not been cleared or approved by the Foodand Drug Administration.PATIENT NOT FASTINGPERFORMED BY: [employer] [address] [id number] Metanephrines (24H U) [Mass/Vol] 47 ug/L Normal [facility]; [facility] Work Phone: Comment on above: Test(s) 733010-Oecmi phrine, Urine; 509498-Dnvgswdlofqcbe, Ur; 780203-Irnoluhy, Urine; 038463-Fyxknwphwjavddz, Ur; 016389-Vafwimpavuwa, Ur;863239-FBK, Urinewas developed and its performance characteristics determinedby [facility]. It has not been cleared or approved by the Foodand Drug Administration.PATIENT NOT FASTINGPERFORMED BY: [employer] [address] [id number] Normetanephrine (24H U) [Mass/Time] 424 {ug/24_hr} Normal 131-612 [facility]; [facility] Work Phone: Comment on above: Test(s) 653884-Nbxin phrine, Urine; 388252-Lggmlyfidkopfu, Ur; 365949-Dbogpsmw, Urine; 695583-Xcanryosilkchqf, Ur; 109600-Qwnictsnzrwb, Ur;545196-MYC, Urinewas developed and its performance characteristics determinedby [facility]. It has not been cleared or approved by the Foodand Drug Administration.PATIENT NOT FASTINGPERFORMED BY: [employer] [address] [id number] Normetanephrine (24H U) [Mass/Vol] 326 ug/L Normal [facility]; [facility] Work Phone: Comment on above: Test(s) 677164-Wlycz phrine, Urine; 534039-Bnyfgyzhhbedte, Ur; 316779-Vrkgcwtm, Urine; 406048-Eohcsmosvfuqopm, Ur; 394862-Pgludacuengp, Ur;548195-CBA, Urinewas developed and its performance characteristics determinedby [facility]. It has not been cleared or approved by the Foodand Drug Administration.PATIENT NOT FASTINGPERFORMED BY: [employer] [address] [id number] URINE VMA (66006)Ordered By: Gun Synchronizer on 09-30-2021 Vanillylmandelate (24H U) [Mass/Time] 4.4 {mg/24_hr} Normal 0.0-7.5 [facility]; [facility] Work Phone: Comment on above: Test(s) 255724-Pgfwf phrine, Urine; 408064-Vydzqlcoigrfbt, Ur; 792124-Mdcnshnl, Urine; 646244-Mgwwmakcudkeaes, Ur; 763766-Bljsmgazctzt, Ur;667554-OQQ, Urinewas developed and its performance characteristics determinedby [facility]. It has not been cleared or approved by the Foodand Drug Administration.PATIENT NOT FASTINGPERFORMED BY: [employer] [address] [id number] Vanillylmandelate (U) [Mass/Vol] 3.4 mg/L Normal [facility]; [facility] Work Phone: Comment on above: Test(s) 276598-Witqq phrine, Urine; 174386-Xgnpmaneopehmv, Ur; 193022-Nqngkibe, Urine; 648870-Acswoegnaafehmc, Ur; 576016-Zdlkxialtvvq, Ur;031682-JCL, Urinewas developed and its performance characteristics determinedby [employer]. It has not been cleared or approved by the Foodand Drug Administration.PATIENT NOT FASTINGPERFORMED BY: [place] 355387 [facility] [id number] Blood Glucose , Office (9264 2)Ordered By: Nelda Mallory on 09-26-2021 Glucose Glucometer (BldC) [Moles/Vol] 138 1 Normal [facility]; [facility] Work Phone: HgA1C , Office (33653)Ordere d By: Nelda Mallory on 09-26-2021 HbA1c (Bld) [Mass fraction] 6.0 % Normal 4.6 - 7.1 [facility]; [facility] Work Phone: CBC W/AUTO DIFF WBC (70668)O rdered By: Gun Synchronizer on 09-18-2021 Basophils (Bld) [#/Vol] 0.1 10*3/uL Normal 0.0-0.2 [facility]; [facility] Work Phone: Comment on above: PATIENT WAS FASTINGP ERFORMED BY: CollegeSolvedH[facility] Meadowview HospitalQvjgss5019 [place] [employer] acquired by [employer] ElectricAlleghany Health [id number] Basophils/100 WBC (Bld) 1 % Normal C omprehensive Internal Medicine; [facility] Work Phone: Comment on above: PATIENT WAS FASTINGP ERFORMED BY: CollegeSolvedH[facility] Meadowview HospitalKctntf8807 [place] [employer] MetricsTransylvania Regional Hospital [id number] Eosinophils (Bld) [#/Vol] 0.3 10*3/uL Normal 0.0-0.4 [facility]; [facility] Work Phone: Comment on above: PATIENT WAS FASTINGP ERFORMED BY: CollegeSolvedH[facility] Meadowview HospitalOpynoc7956 [address]inMer[facility] [id number] Eosinophils/100 WBC (Bld) 4 % Normal [facility]; [facility] Work Phone: Comment on above: PATIENT WAS FASTINGP ERFORMED BY: HALEIGH Polina [place]6370 [facility] [id number] Erythrocyte distribution width (RBC) [Ratio] 12.7 % Normal 11.7-15.4 Comprehensiv e Internal Medicine; [facility] Work Phone: Comment on above: PATIENT WAS FASTINGP ERFORMED BY: HALEIGH French Awtdgd8259 [facility] [id number] Hematocrit (Bld) [Volume fraction] 40.4 % Normal 34.0-46.6 [facility]; [facility] Work Phone: Comment on above: PATIENT WAS FASTINGP ERFORMED BY: HALEIGH Darrinssm rehab Zcpinv1072 [facility] [id number] Hemoglobin (Bld) [Mass/Vol] 13.5 g/dL Normal 11.1-15.9 [facility]; [facility] Work Phone: Comment on above: PATIENT WAS FASTINGP ERFORMED BY: HALEIGH French Yfsbpm5185 [facility] [id number] Immature granulocytes (Bld) [#/Vol] 0.0 10*3/uL Normal 0.0-0.1 [facility]; [facility] Work Phone: Comment on above: PATIENT WAS FASTINGP ERFORMED BY: HALEIGH French Vdtfws4813 [facility] [id number] Immature granulocytes/100 WBC (Bld) 0 % Normal [facility]; [facility] Work Phone: Comment on above: PATIENT WAS FASTINGP ERFORMED BY: HALEIGH [facility] Rztahv5002 [facility] [id number] Lymphocytes (Bld) [#/Vol] 2.8 10*3/uL Normal 0.7-3.1 [facility]; [facility] Work Phone: Comment on above: PATIENT WAS FASTINGP ERFORMED BY: [facility] [facility]in [place] [id number] Lymphocytes/100 WBC (Bld) 33 % Normal [facility]; [facility] Work Phone: Comment on above: PATIENT WAS FASTINGP ERFORMED BY: [facility] Bzrmkf[address] [facility] [id number] MCH (RBC) [Entitic mass] 30.0 pg Normal 26.6-33.0 [facility]; [facility] Work Phone: Comment on above: PATIENT WAS FASTINGP ERFORMED BY: [facility]6370 [facility] [place] [id number] MCHC (RBC) [Mass/Vol] 33.4 g/dL Normal 31.5-35.7 [facility] prehensive Internal Medicine; [facility] Work Phone: Comment on above: PATIENT WAS FASTINGP ERFORMED BY: [place] 4223870 [facility] [id number] MCV (RBC) [Entitic vol] 90 fL Normal 79-97 C omprehensive Internal Medicine; [facility] Work Phone: Comment on above: PATIENT WAS FASTINGP ERFORMED BY: [facility]ty Hospital6370 [facility] [id number] Monocytes (Bld) [#/Vol] 0.8 10*3/uL Normal 0.1-0.9 [facility]; [facility] Work Phone: Comment on above: PATIENT WAS FASTINGP ERFORMED BY: [facility]6370 [facility] [id number] Monocytes/100 WBC (Bld) 10 % Normal C omprehensive Internal Medicine; [facility] Work Phone: Comment on above: PATIENT WAS FASTINGP ERFORMED BY: [facility]6370 [facility] [id number] Neutrophils (Bld) [#/Vol] 4.5 10*3/uL Normal 1.4-7.0 [facility]; [facility] Work Phone: Comment on above: PATIENT WAS FASTINGP ERFORMED BY: HALEIGH [facility] Rnyhpg4959 [address] RoadDublin [place] [id number] Neutrophils/100 WBC (Bld) 52 % Normal [facility]; [facility] Work Phone: Comment on above: PATIENT WAS FASTINGP ERFORMED BY: HALEIGH [facility] Bmfexr4633 [address] RoadDublin [place] [id number] Platelets (Bld) [#/Vol] 260 10*3/uL Normal 150-450 [facility]; [facility] Work Phone: Comment on above: PATIENT WAS FASTINGP ERFORMED BY: HALEIGH [facility] Mupawm5181 [address] RoadDublin [place] [id number] RBC (Bld) [#/Vol] 4.50 10*6/uL Normal 3.77-5.28 [facility]; [facility] Work Phone: Comment on above: PATIENT WAS FASTINGP ERFORMED BY: HALEIGH [facility] Uhskpj2954 [address] RoadDublin [place] [id number] WBC (Bld) [#/Vol] 8.5 10*3/uL Normal 3.4-10.8 [facility] Internal Medicine; [facility] Work Phone: Comment on above: PATIENT WAS FASTINGP ERFORMED BY: HALEIGH [facility] Wqdsee8084 [address] RoadDublin [place] [id number] LIPID PANEL (54794)Ordered B y: Gun Synchronizer on 09-18-2021 Cholesterol [Mass/Vol] 172 mg/dL Normal 100-199 [facility] Internal Medicine; [facility] Work Phone: Comment on above: PATIENT WAS FASTINGP ERFORMED BY: HALEIGH [facility] Cavxbj9686 [address] RoadDublin [place] [id number] Cholesterol in HDL [Mass/Vol] 50 mg/dL Normal [facility]; [facility] Work Phone: Comment on above: PATIENT WAS FASTINGP ERFORMED BY: HALEIGH [facility] Hjaxou8178 [address] RoadDublin [place] [id number] Triglyceride [Mass/Vol] 167 mg/dL Abnormal 0-149 C ompblanchard valley health systemensive Internal Medicine; [facility] Work Phone: Comment on above: PATIENT WAS FASTINGP ERFORMED BY: HALEIGH Labcoedgardo Anfynw6669 [address] [facility]in [place] [id number] LIPID PANEL (47393) 29 mg/dL Normal 5-40 [facility]; [facility] Work Phone: Comment on above: PATIENT WAS FASTINGP ERFORMED BY: HALEIGH [facility] Fzhnfo7144 [address]guin RoadBlue Ridge Regional Hospitalin [place] [id number] LIPID PANEL (96781) 93 mg/dL Normal 0-99 [facility]; [facility] Work Phone: Comment on above: PATIENT WAS FASTINGP ERFORMED BY: HALEIGH Labcoedgardo Osdjoa[address] [facility] [id number] LIPID PANEL (23972) 1.9 {ratio} Normal 0.0-3.2 [facility]ensive [facility]; [facility] Work Phone: Comment on above: LDL/HDL Ratio Men Wo men 1/2 Avg.Risk 1.0 1.5 Avg.Risk 3.6 3.2 2X Avg.Risk 6.2 5.0 3X Avg.Risk 8.0 6.1 PATIENT WAS FASTINGP ERFORMED BY: HALEIGH Labcoedgardo Wmtwmp6117 [facility] [id number] METABOLIC PANEL, COMPREHENSI VE (54690)Ordered By: Gun Synchronizer on 09-18-2021 Albumin [Mass/Vol] 4.0 g/dL Normal 3.6-4.6 [facility] Internal Medicine; [facility] Work Phone: Comment on above: PATIENT WAS FASTINGP ERFORMED BY: HALEIGH [facility] Stvscp3597 [address] [facility] HospitalD[facility] [place] [id number] Albumin/Globulin [Mass ratio] 1.5 {ratio} Normal 1.2-2.2 [facility]; [facility] Work Phone: Comment on above: PATIENT WAS FASTINGP ERFORMED BY: HALEIGH [facility] Emqdbh[address] [facility] Hospitalblin [place] [id number] ALP [Catalytic activity/Vol] 65 U/L Normal 44-121 [facility]; [facility] Work Phone: Comment on above: PATIENT WAS FASTINGP ERFORMED BY: CB [facility] Vtezss8652 [address] RoadDublin [place] [id number] ALT [Catalytic activity/Vol] 19 U/L Normal 0-32 [facility]; [facility] Work Phone: Comment on above: PATIENT WAS FASTINGP ERFORMED BY: CB [facility] Cfmfao1947 [address]Dublin [place] [id number] AST [Catalytic activity/Vol] 19 U/L Normal 0-40 [facility]; [facility] Work Phone: Comment on above: PATIENT WAS FASTINGP ERFORMED BY: CB [facility] Jbvwkj6492 [address] RoadDublin [place] [id number] Bilirubin [Mass/Vol] 1.0 mg/dL Normal 0.0-1.2 Comp rehensive Internal Medicine; [facility] Work Phone: Comment on above: PATIENT WAS FASTINGP ERFORMED BY: CB [facility] Fqoyhv0718 [address] RoadDublin [place] [id number] Calcium [Mass/Vol] 10.0 mg/dL Normal 8.7-10.3 [facility] Internal Medicine; [facility] Work Phone: Comment on above: PATIENT WAS FASTINGP ERFORMED BY: CB [facility] Yboqgz7653 [address]Dublin [place] [id number] Chloride [Moles/Vol] 104 mmol/L Normal 96-106 [facility]; [facility] Work Phone: Comment on above: PATIENT WAS FASTINGP ERFORMED BY: CB [facility] Wcjnes2706 [address]Dublin [place] [id number] CO2 [Moles/Vol] 23 mmol/L Normal 20-29 [facility] Internal Medicine; [facility] Work Phone: Comment on above: PATIENT WAS FASTINGP ERFORMED BY: CB [facility] Feeykd9506 [address]Dublin [place] [id number] Creatinine [Mass/Vol] 1.23 mg/dL Abnormal 0.57-1.00 [facility] prehensive Internal Medicine; [facility] Work Phone: Comment on above: PATIENT WAS FASTINGP ERFORMED BY: HALEIGH Braswell Lzxfnc0960 [facility] [id number] GFR/1.73 sq M.predicted among non-blacks MDRD (S/P/Bld) [Vol rate/Area] 43 mL/min/{1.73_m2} Abnormal Comprehensiv e Internal Medicine; [facility] Work Phone: Comment on above: In accordance with recommendations from the NKF-ASN Task force, [facility] has updated its eGFR calculation to the 2020 CKD-EPI creatinine equation that estimates kidney function without a race variable. PATIENT WAS FASTINGP ERFORMED BY: French Hrnqci0803 [facility] [id number] Globulin (S) [Mass/Vol] 2.7 g/dL Normal 1.5-4.[address] [facility]; [facility] Work Phone: Comment on above: PATIENT WAS FASTINGP ERFORMED BY: [facility] Enmcjr4183 [facility] [id number] Glucose [Mass/Vol] 118 mg/dL Abnormal 65-99 [facility]; [facility] Work Phone: Comment on above: PATIENT WAS FASTINGP ERFORMED BY: [facility]6370 [facility] [id number] Potassium [Moles/Vol] 4.9 mmol/L Normal 3.5-5.2 [facility] prehensive Internal Medicine; [facility] Work Phone: Comment on above: PATIENT WAS FASTINGP ERFORMED BY: DarrinAnthony [place] [id number] [facility] [id number] Protein [Mass/Vol] 6.7 g/dL Normal 6.0-8.5 [facility]; [facility] Work Phone: Comment on above: PATIENT WAS FASTINGP ERFORMED BY: [place] [id number] [address] RoadDublin [place] [id number] Sodium [Moles/Vol] 140 mmol/L Normal 134-144 [facility] Internal Medicine; [facility] Work Phone: Comment on above: PATIENT WAS FASTINGP ERFORMED BY: [facility] Xzbkyn8663 [address] RoadDublin [place] [id number] Urea nitrogen [Mass/Vol] 24 mg/dL Normal 8-27 [facility]; [facility] Work Phone: Comment on above: PATIENT WAS FASTINGP ERFORMED BY: CB [facility] Skhmyb1492 [address]Dublin [place] [id number] Urea nitrogen/Creatinine [Mass ratio] 20 mg/mg Normal 12- [facility]; [facility] Work Phone: Comment on above: PATIENT WAS FASTINGP ERFORMED BY: [facility] Qimmqz6207 [address] RoadDublin [place] [id number] MICROALBUMINOrdered By: ActiViews em Floor Care Specialist on 09-18-2021 Albumin DL <= 20 mg/L (U) [Mass/Vol] 32.8 ug/mL Normal [facility]; [facility] Work Phone: Comment on above: PATIENT WAS FASTINGP ERFORMED BY: [facility] Romrwo8223 [address] RoadDublin [place] [id number] Albumin/Creatinine (U) [Mass ratio] 38 {mg/g_creat} Abnormal 0-29 [facility]; [facility] Work Phone: Comment on above: Normal: 0 - 29 Moder ately increased: 30 - 300 Severely increased: >300 PATIENT WAS FASTINGP ERFORMED BY: [facility] Bgditl1644 [address]Dublin [place] [id number] Creatinine (U) [Mass/Vol] 85.8 mg/dL Normal [facility]; [facility] Work Phone: Comment on above: PATIENT WAS FASTINGP ERFORMED BY: [facility] Yzvugi1471 [address] RoadDublin [place] [id number] TSH ([id number])Ordered By: ActiViewse m Floor Care Specialist on 09-18-2021 TSH Qn 2.450 {uIU/mL} Normal 0.450-4.50 0 [facility]; [facility] Work Phone: Comment on above: PATIENT WAS FASTINGP ERFORMED BY: HALEIGH Polina Dallas6[address]Dublin [place] [id number] URINALYSIS, W/ MICRO ([id number]) Ordered By: Gun Synchronizer on 09-18-2021 Appearance (U) Cloudy Abnormal Comprehens melisa Internal Medicine; [facility] Work Phone: Comment on above: PATIENT WAS FASTINGP ERFORMED BY: HALEIGH Labchu WarrenUvlqec7013 [address] RoadDublin [place] [id number] Bilirubin Ql (U) Negative Normal Comprehe nsive Internal Medicine; [facility] Work Phone: Comment on above: PATIENT WAS FASTINGP ERFORMED BY: HALEIGH Labchu WarrenGdtogv5387 [address] RoadDublin [place] [id number] Color (U) Yellow Normal [facility]; [facility] Work Phone: Comment on above: PATIENT WAS FASTINGP ERFORMED BY: HALEIGH Labchu WarrenFxnqvi5087 [address] RoadDublin [place] [id number] Glucose Ql (U) Negative Normal Comprehens melisa Internal Medicine; [facility] Work Phone: Comment on above: PATIENT WAS FASTINGP ERFORMED BY: HALEIGH Labcoedgardo WarrenXbwdmy6872 [address] RoadDublin [place] [id number] Hemoglobin Ql (U) Negative Normal Compreh ensive Internal Medicine; [facility] Work Phone: Comment on above: PATIENT WAS FASTINGP ERFORMED BY: HALEIGH Labcoedgardo Wtexhk5728 [address] RoadDublin [place] [id number] Ketones Ql (U) Negative Normal Comprehens melisa [facility]; [facility] Work Phone: Comment on above: PATIENT WAS FASTINGP ERFORMED BY: HALEIGH [facility] Lsbooi9841 [address]Dublin [place] [id number] Leukocyte esterase Test strip Ql (U) 1+ Abnormal [facility]; [facility] Work Phone: Comment on above: PATIENT WAS FASTINGP ERFORMED BY: HALEIGH Polina [place]6370 [facility] [id number] Microscopic observation LM Nom (Urine sed) See below: Normal [facility]; [facility] Work Phone: Comment on above: Microscopic was berry cated and was performed. PATIENT WAS FASTINGP ERFORMED BY: HALEIGH French Jfpjac9566 [facility] [id number] Nitrite Ql (U) Negative Normal Comprehens melisa Internal Medicine; [facility] Work Phone: Comment on above: PATIENT WAS FASTINGP ERFORMED BY: HALEIGH [facility] Dleqjy3193 [facility] [id number] pH (U) 6.5 [pH] Normal 5.0-7.5 [facility]; [facility] Work Phone: Comment on above: PATIENT WAS FASTINGP ERFORMED BY: HALEIGH Frenhc Tpzkvv0631 [facility] [id number] Protein Ql (U) Negative Normal Comprehens melisa Internal Medicine; [facility] Work Phone: Comment on above: PATIENT WAS FASTINGP ERFORMED BY: HALEIGH French Mjufvs3446 [facility] [id number] Specific gravity (U) [Rel density] 1.018 1 Normal 1.005-1.03 0 [facility]; [facility] Work Phone: Comment on above: PATIENT WAS FASTINGP ERFORMED BY: [facility] Zsnitn8203 [facility] [id number] Urobilinogen (U) [Mass/Vol] 0.2 mg/dL Normal 0.2-1.0 [facility]; [facility] Work Phone: Comment on above: PATIENT WAS FASTINGP ERFORMED BY: HALEIGH Cliffordssm re[facility] Sxhbms4056 [facility] [id number] Absolute lymphocyte counton 08-10-2021 Lymphocytes Auto (Unsp spec) [#/Vol] 3.17 10*3/uL 0.83-4.51 [facility] Work Phone: Basophil percentageon 2021 Basophil percentage 5-10 SEEN /hpf [facility] [place] Work Phone: Basophils/100 WBC (Bld) 0.7 % 0-1 [facility] [place] Work Phone: Bilirubin [Mass/Vol] 1.00 mg/dL 0.20-1.00 [facility] Work Phone: Comment on above: For patients on eltr ombopag therapy, use of Dimension Rosamond TBIL is not recommended. Chloride [Moles/Vol] 110 mmol/L 98-107 [facility] Work Phone: Eosinophils/100 WBC (Bld) 3.3 % 0-5 [facility] Work Phone: Glucose [Mass/Vol] 99 mg/dL 74-106 [facility] Work Phone: Neutrophils (Bld) [#/Vol] 5.2 10*3/uL 2.0-7.7 [facility] Work Phone: Neutrophils/100 WBC (Bld) 53.5 % 47-70 [facility] Work Phone: Potassium [Moles/Vol] 4.2 mmol/L 3.5-5.1 [facility] Work Phone: Protein [Mass/Vol] 7.1 g/dL 6.4-8.2 [facility] Work Phone: Sodium [Moles/Vol] 142 mmol/L 136-145 [facility] Work Phone: WBC (Bld) [#/Vol] 9.7 10*3/uL 4.4-11.0 [facility] Work Phone: Bilirubin Test strip Ql (U)o n 08-10-2021 Bilirubin Ql (U) Negative Negative [facility] Work Phone: Blood erythrocytes count (nu mber/volume)on 08-10-2021 RBC (Bld) [#/Vol] 4.19 10*6/uL 4.2-5.4 [facility] Work Phone: Blood hemoglobin measurement (mass/volume)on 08-10-2021 Hemoglobin (Bld) [Mass/Vol] 13.0 g/dL 12.0-15.0 [facility] Work Phone: Blood lymphocytes/100 leukoc yteson 08-10-2021 Lymphocytes/100 WBC (Bld) 32.6 % 19-41 [facility] Work Phone: Blood monocytes/100 leukocyt eson 08-10-2021 Monocytes/100 WBC (Bld) 9.6 % 0-10 [facility] [place] Work Phone: Blood platelet mean volumeon 08-10-2021 Platelet mean volume (Bld) [Entitic vol] 10.5 fL 6.2-12.0 [facility] Work Phone: Determination of erythrocyte mean corpuscular volume (MCV)on 08-10-2021 MCV (RBC) [Entitic vol] 93.6 fL 81-99 [facility] [place] Work Phone: Hematocrit Auto (Bld) [Volum e fraction]on 08-10-2021 Hematocrit (Bld) [Volume fraction] 39.2 % 37-47 [facility] Work Phone: Ketones Test strip Ql (U)on 08-10-2021 Ketones Ql (U) Negative Negative [facility] Work Phone: Laboratory - Chemistry and C hemistry - challengeon 08-10-2021 ALP [Catalytic activity/Vol] 59 U/L 45-117 [facility] Work Phone: ALT [Catalytic activity/Vol] 29 U/L 13-56 [facility] Work Phone: CO2 [Moles/Vol] 29.0 mmol/L 21.0-32.0 [facility] Work Phone: Globulin (S) [Mass/Vol] 3.9 g/dL 2.2-4.2 [facility] [place] Work Phone: Urea nitrogen/Creatinine [Mass ratio] 29.2 mg/mg 10-20 [facility] Work Phone: Laboratory - Hematology and Cell countson 08-10-2021 Erythrocyte distribution width (RBC) [Entitic vol] 45.9 fL 35.1-43.9 [facility] Work Phone: Erythrocyte distribution width (RBC) [Ratio] 13.5 % 11.6-14.6 [facility] Work Phone: Immature granulocytes/100 WBC (Bld) 0.300 % 0.0-0.9 [facility] Work Phone: Comment on above: IG% - Immature Granu locytes (promyelocytes, myelocytes and metamyelocytes) > 1% indicates that a LEFT SHIFT is Present. MCH (RBC) [Entitic mass] 31.0 pg 27.0-32.0 [facility] Work Phone: Nucleated RBC/100 WBC (Bld) [Ratio] 0 % 0-5 [facility] Work Phone: MCHC Auto (RBC) [Mass/Vol]on 08-10-2021 MCHC (RBC) [Mass/Vol] 33.2 g/dL 32-36 [facility] Work Phone: Mucus LM Ql (Urine sed)on Mucus Ql (Urine sed) 0 SEEN /hpf [facility] Work Phone: Nitrite Test strip Ql (U)on 08-10-2021 Nitrite Ql (U) Negative Negative [facility] Work Phone: No Panel Informationon 08-10 Estimated GFR (MDRD) Amer 50 mL/min >60 [facility] Work Phone: Comment on above: GFR Calc Estimated GFR (MDRD) Non-Af Amer 41 mL/min >60 [facility] Work Phone: Comment on above: Non- GFR Calc Troponin I High Sensitivity 11 pg/mL 3.0-54.0 [facility] Work Phone: Comment on above: Please Note: New Sue t Units and Gender Specific Reference Ranges. For more information see Policy Stat Procedure Rosamond High Sensitivity Troponin (TNIH) and attachments. Platelets bldon 08-10-2021 Platelets (Bld) [#/Vol] 250 10*3/uL 150-450 [facility] Work Phone: Protein Test strip Ql (U)on 08-10-2021 Protein Ql (U) Negative Negative [facility] Work Phone: Serum or plasma albumin brian urement (mass/volume)on 08-10-2021 Albumin [Mass/Vol] 3.2 g/dL 3.2-5.0 [facility] Work Phone: Serum or plasma albumin/glob ulin mass ratioon 08-10-2021 Albumin/Globulin [Mass ratio] 0.8 {ratio} 0.9-2.4 [facility] Work Phone: Serum or plasma calcium brian urement (mass/volume)on 08-10-2021 Calcium [Mass/Vol] 10.1 mg/dL 8.5-10.1 [facility] Work Phone: Serum or plasma creatinine m easurement (mass/volume)on 08-10-2021 Creatinine [Mass/Vol] 1.30 mg/dL 0.55-1.02 [facility] Work Phone: Comment on above: The validity of the calculated GFR & GFRAA in patients over 70 years has not been determined. Clinical correlation is essential. Serum or plasma urea nitroge n measurement (mass/volume)on 08-10-2021 Urea nitrogen [Mass/Vol] 38 mg/dL 7-18 [facility] Work Phone: Squamous epithelial cells de tection in urine sediment by light microscopyon 08-10-2021 Epithelial cells.squamous LM Ql (Urine sed) 5-10 SEEN /hpf [facility] Work Phone: Thin prep Papanicolaou smear with manual screeningon 08-10-2021 Thin prep Papanicolaou smear with manual screening 13 U/L 15-37 [facility] Work Phone: Thin prep Papanicolaou smear with manual screening 3 5-15 [facility] Work Phone: Urine blood detectionon - RBC Ql (U) Negative Negative [facility] Work Phone: RBC Ql (U) 0 SEEN /hpf [facility] Work Phone: Urine clarityon 08-10-2021 Clarity (U) Clear Clear [facility] Work Phone: Urine color determinationon 08-10-2021 Color (U) Yellow Yellow [facility] Work Phone: Urine glucose detectionon Glucose Ql (U) Normal mg/dl Normal [facility] Work Phone: Urine leukocyte esterase det ection by dipstickon 08-10-2021 Leukocyte esterase Test strip Ql (U) 25 /ul Negative [facility] Work Phone: Urine pHon 08-10-2021 pH (U) 6.0 [pH] [facility] Work Phone: Urine sediment bacteria coun t by microscopy (number/high power field)on 08-10-2021 Bacteria LM.HPF (Urine sed) [#/Area] 0 /[HPF] None Seen [facility] Work Phone: Urine specific gravity measu rementon 08-10-2021 Specific gravity (U) [Rel density] 1.020 [facility] Work Phone: Urobilinogen Auto test strip Ql (U)on 08-10-2021 Urobilinogen Ql (U) Normal mg/dl Normal [facility] Work Phone: OBSOLETEon 06-04-2021 OBSOLETE Refill (FAMPWS) DEBBIE MIRELES ([id number]) 1935 F Date Time Provider Department 06/04/21 [...] contact office 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 Shannon Chakraborty 06/08/2021 10:04 AM Signed Patient [...] PRESCRIPTION Artery Cleanse - COMPOUNDED PRESCRIPTION [facility] [place] Healthy heart/arteries - OMEGA 2-CVD-SZU-OTHER OM3-D3 ORAL Take by mouth. - aspirin, [...] by PUSHPA PRICE LPN on 06/08/21 Normal [facility] LIPID PANEL ([id number])Ordered B y: Gun Synchronizer on 05-18-2021 Cholesterol [Mass/Vol] 143 mg/dL Normal 100-199 Co mprehensive [facility]; [facility] Work Phone: Comment on above: PATIENT WAS FASTINGP ERFORMED BY: HALEIGH InboxCoWelkin HealthJpqvar5088 [facility] [id number] Cholesterol in HDL [Mass/Vol] 48 mg/dL Normal [facility]; [facility] Work Phone: Comment on above: PATIENT WAS FASTINGP ERFORMED BY: CC video LabSilkRoad Japanrp Nkuiqz3204 [facility] [id number] Triglyceride [Mass/Vol] 126 mg/dL Normal 0-149 C omprehensive Internal Medicine; [facility] Work Phone: Comment on above: PATIENT WAS FASTINGP ERFORMED BY: HALEIGH LabChu WarrenWnzhtx0172 [address] [facility]in [place] [id number] LIPID PANEL ([id number]) 22 mg/dL Normal 5-40 [facility]; [facility] Work Phone: Comment on above: PATIENT WAS FASTINGP ERFORMED BY: HALEIGH LabCoedgardo WarrenKedxqq8677 [address] [facility] [id number] LIPID PANEL (58290) 73 mg/dL Normal 0-99 [facility] Internal Medicine; [facility] Work Phone: Comment on above: PATIENT WAS FASTINGP ERFORMED BY: HALEIGH Warrenlin6370 [address] [facility] [id number] LIPID PANEL (45911) 1.5 {ratio} Normal 0.0-3.2 [facility]; [facility] Work Phone: Comment on above: LDL/HDL Ratio Men Wo men 1/2 Avg.Risk 1.0 1.5 Avg.Risk 3.6 3.2 2X Avg.Risk 6.2 5.0 3X Avg.Risk 8.0 6.1 PATIENT WAS FASTINGP ERFORMED BY: HALEIGH Warrenlin6370 [facility] [id number] Metabolic Panel, Comprehensi ve ([id number])Ordered By: Gun Synchronizer on 05-18-2021 Albumin [Mass/Vol] 4.1 g/dL Normal 3.6-4.6 [facility] Internal Medicine; [facility] Work Phone: Comment on above: PATIENT WAS FASTINGP ERFORMED BY: HALEIGH LabCoedgardo Werdno3511 [address] [facility]in [place] [id number] Albumin/Globulin [Mass ratio] 1.8 {ratio} Normal 1.2-2.2 [facility] Internal Medicine; [facility] Work Phone: Comment on above: PATIENT WAS FASTINGP ERFORMED BY: HALEIGH LabChu WarrenCmdalw4661 [address] [facility] [id number] ALP [Catalytic activity/Vol] 67 U/L Normal 44-121 [facility]; [facility] Work Phone: Comment on above: Please note refere nce interval change PATIENT WAS FASTINGP ERFORMED BY: CB [facility] Epnwom4505 [address] RoadDublin [place] [id number] ALT [Catalytic activity/Vol] 15 U/L Normal 0-32 [facility]; [facility] Work Phone: Comment on above: PATIENT WAS FASTINGP ERFORMED BY: CB [facility] Rtxbym3902 [address] RoadDublin [place] [id number] AST [Catalytic activity/Vol] 16 U/L Normal 0-40 [facility]; [facility] Work Phone: Comment on above: PATIENT WAS FASTINGP ERFORMED BY: CB [facility] Lcdzug6324 [address] RoadDublin [place] [id number] Bilirubin [Mass/Vol] 1.0 mg/dL Normal 0.0-1.2 Comp rehensive Internal Medicine; [facility] Work Phone: Comment on above: PATIENT WAS FASTINGP ERFORMED BY: CB [facility] Pifzgs7429 [address] RoadDublin [place] [id number] Calcium [Mass/Vol] 9.8 mg/dL Normal 8.7-10.3 [facility] Internal Medicine; [facility] Work Phone: Comment on above: PATIENT WAS FASTINGP ERFORMED BY: CB [facility] Azimwc4204 [address] RoadDublin [place] [id number] Chloride [Moles/Vol] 103 mmol/L Normal 96-106 Comp rehensive Internal Medicine; [facility] Work Phone: Comment on above: PATIENT WAS FASTINGP ERFORMED BY: CB [facility] Avjkts6155 [address] RoadDublin [place] [id number] CO2 [Moles/Vol] 23 mmol/L Normal 20-29 [facility]; [facility] Work Phone: Comment on above: PATIENT WAS FASTINGP ERFORMED BY: CB [facility] Riohoj3065 [address] RoadDublin [place] [id number] Creatinine [Mass/Vol] 1.15 mg/dL Abnormal 0.57-1.00 [facility] prehensive Internal Medicine; [facility] Work Phone: Comment on above: PATIENT WAS FASTINGP ERFORMED BY: HALEIGH [place] [facility] HospitalAnjelTransylvania Regional Hospital [id number] GFR/1.73 sq M.predicted among blacks CKD-EPI (S/P/Bld) [Vol rate/Area] 50 mL/min/1.73 Abnormal [facility]; [facility] Work Phone: Comment on above: In accordance with recommendations from the NKF-ASN Task force, [facility] is in the process of updating its eGFR calculation to the 2020 CKD-EPI creatinine equation that estimates kidney function without a race variable. PATIENT WAS FASTINGP ERFORMED BY: HALEIGH [place]6370 [facility] [id number] GFR/1.73 sq M.predicted among non-blacks CKD-EPI (S/P/Bld) [Vol rate/Area] 44 mL/min/1.73 Abnormal [facility]; [facility] Work Phone: Comment on above: PATIENT WAS FASTINGP ERFORMED BY: HALEIGH [place]6370 [facility] [id number] Globulin (S) [Mass/Vol] 2.3 g/dL Normal 1.5-4.[address] [facility]; [facility] Work Phone: Comment on above: PATIENT WAS FASTINGP ERFORMED BY: HALEIGH Dallas6370 [facility] [id number] Glucose [Mass/Vol] 103 mg/dL Abnormal 65-99 [facility] Internal Medicine; [facility] Work Phone: Comment on above: PATIENT WAS FASTINGP ERFORMED BY: HALEIGH Warrenlin6370 [facility] [id number] Potassium [Moles/Vol] 4.8 mmol/L Normal 3.5-5.2 [facility] prehensive Internal Medicine; [facility] Work Phone: Comment on above: PATIENT WAS FASTINGP ERFORMED BY: CB [facility] Dxtwfv2437 [address] RoadDublin [place] [id number] Protein [Mass/Vol] 6.4 g/dL Normal 6.0-8.5 [facility] Internal Medicine; [facility] Work Phone: Comment on above: PATIENT WAS FASTINGP ERFORMED BY: CB [facility] Zmhdej1907 [address] RoadDublin [place] [id number] Sodium [Moles/Vol] 140 mmol/L Normal 134-144 [facility] Internal Medicine; [facility] Work Phone: Comment on above: PATIENT WAS FASTINGP ERFORMED BY: CB [facility] Swdkul1282 [address] RoadDublin [place] [id number] Urea nitrogen [Mass/Vol] 21 mg/dL Normal 8-27 [facility]; [facility] Work Phone: Comment on above: PATIENT WAS FASTINGP ERFORMED BY: CB [facility] Sycdoe2485 [address] RoadDublin [place] [id number] Urea nitrogen/Creatinine [Mass ratio] 18 mg/mg Normal 12-28 [facility]; [facility] Work Phone: Comment on above: PATIENT WAS FASTINGP ERFORMED BY: CB [facility] Fzircq3089 [address] Roadblin [place] [id number] Blood Glucose , Office ([phone])Ordered By: Steffany Oh on 03-20-2021 Glucose Glucometer (BldC) [Moles/Vol] 103 1 Normal [facility]; [facility] Work Phone: HgA1C , Office ([phone])Ordere d By: Steffany Oh on 03-20-2021 HbA1c (Bld) [Mass fraction] 5.5 % Normal 4.6 - 7.1 [facility]; [facility] Work Phone: Blood Glucose , Office ([phone])Ordered By: Turner Balderas on 12-13-2020 Glucose Glucometer (BldC) [Moles/Vol] 113 1 Normal [facility]; [facility] Work Phone: HgA1C , Office ([phone])Ordere d By: Turner Balderas on 12-13-2020 HbA1c (Bld) [Mass fraction] 5.8 % Normal 4.6 - 7.1 [facility]; [facility] Work Phone: LIPID PANEL ([id number])Ordered B y: Gun Synchronizer on 12-05-2020 Cholesterol [Mass/Vol] 228 mg/dL Abnormal 100-199 Co [facility]x bransonensive Internal Medicine; [facility] Work Phone: Comment on above: PATIENT WAS FASTINGP ERFORMED BY: CB [facility] Hdssau1833 [address] RoadDublin [place] [id number] Cholesterol in HDL [Mass/Vol] 45 mg/dL Normal [facility]; [facility] Work Phone: Comment on above: PATIENT WAS FASTINGP ERFORMED BY: CB [facility] Muepgd5393 [address] RoadDublin [place] [id number] Triglyceride [Mass/Vol] 193 mg/dL Abnormal 0-149 C [facility]; [facility] Work Phone: Comment on above: PATIENT WAS FASTINGP ERFORMED BY: CB [facility] Xslgra1001 [address]Dublin [place] [id number] LIPID PANEL (86632) 35 mg/dL Normal 5-40 Compr ensive Internal Medicine; [facility] Work Phone: Comment on above: PATIENT WAS FASTINGP ERFORMED BY: CB [facility] Fgwyku8383 [address] RoadDublin [place] [id number] LIPID PANEL (85602) 148 mg/dL Abnormal 0-99 Compr ensive Internal Medicine; [facility] Work Phone: Comment on above: PATIENT WAS FASTINGP ERFORMED BY: CB [facility] Yzmzuu9673 [address]Dublin [place] [id number] LIPID PANEL (80550) 3.3 {ratio} Abnormal 0.0-3.2 Comp [facility]; [facility] Work Phone: Comment on above: LDL/HDL Ratio Men Wo men 1/2 Avg.Risk 1.0 1.5 Avg.Risk 3.6 3.2 2X Avg.Risk 6.2 5.0 3X Avg.Risk 8.0 6.1 PATIENT WAS FASTINGP ERFORMED BY: HALEIGH [facility] Hbxbtv4320 [facility] [id number] RENAL FUNCTION PANEL (08402) Ordered By: Gun Synchronizer on 12-05-2020 Albumin [Mass/Vol] 4.1 g/dL Normal 3.6-4.6 [facility] Internal Medicine; [facility] Work Phone: Comment on above: PATIENT WAS FASTINGP ERFORMED BY: [facility]6370 [facility] [id number] Calcium [Mass/Vol] 10.0 mg/dL Normal 8.7-10.3 [facility] Internal Medicine; [facility] Work Phone: Comment on above: PATIENT WAS FASTINGP ERFORMED BY: HALEIGH [facility] Fwqtzx4737 [facility] [id number] Chloride [Moles/Vol] 105 mmol/L Normal 96-106 [facility]; [facility] Work Phone: Comment on above: PATIENT WAS FASTINGP ERFORMED BY: [facility] Dsaahq7534 [facility] [id number] CO2 [Moles/Vol] 24 mmol/L Normal 20-29 [facility] Internal Medicine; [facility] Work Phone: Comment on above: PATIENT WAS FASTINGP ERFORMED BY: [facility] Mannqm3864 [facility] [id number] Creatinine [Mass/Vol] 1.21 mg/dL Abnormal 0.57-1.00 [facility]; [facility] Work Phone: Comment on above: PATIENT WAS FASTINGP ERFORMED BY: [facility] Lxtxhw4383 [facility] [id number] GFR/1.73 sq M.predicted among blacks CKD-EPI (S/P/Bld) [Vol rate/Area] 47 mL/min/1.73 Abnormal [facility]; [facility] Work Phone: Comment on above: [facility] currently reports eGFR in compliance with the current recommendations of the National Kidney Foundation. [facility] will update reporting as new guidelines are published from the NKF-ASN Task force. PATIENT WAS FASTINGP ERFORMED BY: [facility]6370 [facility] [id number] GFR/1.73 sq M.predicted among non-blacks CKD-EPI (S/P/Bld) [Vol rate/Area] 41 mL/min/1.73 Abnormal [facility]; [facility] Work Phone: Comment on above: PATIENT WAS FASTINGP ERFORMED BY: [facility]6370 [facility] [id number] Glucose [Mass/Vol] 113 mg/dL Abnormal 65-99 [facility] Internal Medicine; [facility] Work Phone: Comment on above: PATIENT WAS FASTINGP ERFORMED BY: [facility]6370 [facility] [id number] Phosphate [Mass/Vol] 2.8 mg/dL Abnormal 3.0-4.3 [facility]; [facility] Work Phone: Comment on above: PATIENT WAS FASTINGP ERFORMED BY: [facility]6370 [facility] [id number] Potassium [Moles/Vol] 5.1 mmol/L Normal 3.5-5.2 [facility]; [facility] Work Phone: Comment on above: PATIENT WAS FASTINGP ERFORMED BY: [facility]6370 [facility] [id number] Sodium [Moles/Vol] 141 mmol/L Normal 134-144 [facility] Internal Medicine; [facility] Work Phone: Comment on above: PATIENT WAS FASTINGP ERFORMED BY: [facility]6370 [facility] [id number] Urea nitrogen [Mass/Vol] 21 mg/dL Normal 8-27 [facility]; [facility] Work Phone: Comment on above: PATIENT WAS FASTINGP ERFORMED BY: [facility]6370 [facility] [id number] Urea nitrogen/Creatinine [Mass ratio] 17 mg/mg Normal 12-28 [facility]; [facility] Work Phone: Comment on above: PATIENT WAS FASTINGP ERFORMED BY: [employer] Olxdqw6552 [facility] [id number] Blood Glucose , Office ([phone])Ordered By: Turner Balderas on 09-15-2020 Glucose Glucometer (BldC) [Moles/Vol] 163 1 Normal [facility]; [facility] Work Phone: CALCIFEDIOL ([id number])Ordered B y: Gun Synchronizer on 09-15-2020 25-Hydroxyvitamin D2+25-Hydroxyvitamin D3 [Mass/Vol] 60.2 ng/mL Normal 30.0-100.0 [facility]; [facility] Work Phone: Comment on above: Vitamin D deficiency has been defined by the [place] [facility] Centerc[facility] and an Endocrine Society practice guideline as alevel of serum 25-OH vitamin D less than 20 ng/mL (1,2).The Endocrine Society went on to further define vitamin Dinsufficiency as a level between 21 and 29 ng/mL (2).1. IOM ([place] of Medicine). 2010. Dietary reference intakes for calcium and D. [place]: The National Academies Press.2. Catalina BA, [place]an[place] GARCIA, Bharathi GLOVER, et al. Evaluation, treatment, and prevention of vitamin D deficiency: an Endocrine Society clinical practice guideline. JCEM. 2010; 96(7):1911-30. PATIENT NOT FASTINGP ERFORMED BY: [employer] Jtafcs2255 [facility] [id number] CBC, Platelets & Auto Diff ( [id number])Ordered By: Gun Synchronizer on 09-15-2020 Basophils (Bld) [#/Vol] 0.1 {x10E3/uL} Normal 0.0-0.2 [facility]; [facility] Work Phone: Comment on above: PATIENT NOT FASTINGP ERFORMED BY: [employer] Bvzzej4781 [facility] [id number] Basophils (Bld) [#/Vol] 0.1 10*3/uL Normal 0.0-0.2 [facility]; [facility] Work Phone: Comment on above: PATIENT NOT FASTINGP ERFORMED BY: HALEIGH [place] [facility]blin [place] [id number] Basophils/100 WBC (Bld) 1 % Normal C omprehensive Internal Medicine; [facility] Work Phone: Comment on above: PATIENT NOT FASTINGP ERFORMED BY: CB [facility] Fmhqcp[address] [facility] [id number] Eosinophils (Bld) [#/Vol] 0.3 {x10E3/uL} Normal 0.0-0.4 [facility]; [facility] Work Phone: Comment on above: PATIENT NOT FASTINGP ERFORMED BY: HALEIGH [place] Yfpvyi[address] [facility] [id number] Eosinophils (Bld) [#/Vol] 0.3 10*3/uL Normal 0.0-0.4 [facility]; [facility] Work Phone: Comment on above: PATIENT NOT FASTINGP ERFORMED BY: HALEIGH [place] [facility] [place] [id number] Eosinophils/100 WBC (Bld) 3 % Normal [facility]; [facility] Work Phone: Comment on above: PATIENT NOT FASTINGP ERFORMED BY: HALEIGH Warrenlin[address] [facility] [id number] Erythrocyte distribution width (RBC) [Ratio] 12.8 % Normal 11.7-15.4 Comprehensiv e Internal Medicine; [facility] Work Phone: Comment on above: PATIENT NOT FASTINGP ERFORMED BY: HALEIGH [facility] Ahxkbm75[address] [facility]blin [place] [id number] Hematocrit (Bld) [Volume fraction] 39.0 % Normal 34.0-46.6 [facility]; [facility] Work Phone: Comment on above: PATIENT NOT FASTINGP ERFORMED BY: CB [facility] Cqnkqy65[address] [facility] [id number] Hemoglobin (Bld) [Mass/Vol] 13.5 g/dL Normal 11.1-15.9 [facility]; [facility] Work Phone: Comment on above: PATIENT NOT FASTINGP ERFORMED BY: HALEIGH [place] [facility] [id number] Immature granulocytes (Bld) [#/Vol] 0.0 {x10E3/uL} Normal 0.0-0.1 [facility]; [facility] Work Phone: Comment on above: PATIENT NOT FASTINGP ERFORMED BY: HALEIGH [place] [facility] [id number] Immature granulocytes (Bld) [#/Vol] 0.0 10*3/uL Normal 0.0-0.1 [facility]; [facility] Work Phone: Comment on above: PATIENT NOT FASTINGP ERFORMED BY: HALEIGH [place] [facility] [id number] Immature granulocytes/100 WBC (Bld) 0 % Normal [facility]; [facility] Work Phone: Comment on above: PATIENT NOT FASTINGP ERFORMED BY: HALEIGH [place] [facility] [id number] Lymphocytes (Bld) [#/Vol] 2.4 {x10E3/uL} Normal 0.7-3.1 [facility]; [facility] Work Phone: Comment on above: PATIENT NOT FASTINGP ERFORMED BY: HALEIGH LabCoedgardo WarrenPygeox[address] [facility]in [place] [id number] Lymphocytes (Bld) [#/Vol] 2.4 10*3/uL Normal 0.7-3.1 [facility]; [facility] Work Phone: Comment on above: PATIENT NOT FASTINGP ERFORMED BY: HALEIGH LabChu WarrenFwjqyh80[address] [facility] [id number] Lymphocytes/100 WBC (Bld) 28 % Normal [facility]; [facility] Work Phone: Comment on above: PATIENT NOT FASTINGP ERFORMED BY: CB [facility] Zqmrlt8563 [address] RoadDublin [place] [id number] MCH (RBC) [Entitic mass] 31.3 pg Normal 26.6-33.0 [facility]; [facility] Work Phone: Comment on above: PATIENT NOT FASTINGP ERFORMED BY: CB [facility] Pirlzl6677 [address]Dublin [place] [id number] MCHC (RBC) [Mass/Vol] 34.6 g/dL Normal 31.5-35.7 [facility] prehensive Internal Medicine; [facility] Work Phone: Comment on above: PATIENT NOT FASTINGP ERFORMED BY: CB [facility] Qhwabh7365 [address] RoadDublin [place] [id number] MCV (RBC) [Entitic vol] 90 fL Normal 79-97 C omprehensive Internal Medicine; [facility] Work Phone: Comment on above: PATIENT NOT FASTINGP ERFORMED BY: CB [facility] Mahroo7613 [address]Dublin [place] [id number] Monocytes (Bld) [#/Vol] 0.9 {x10E3/uL} Normal 0.1-0.9 [facility]; [facility] Work Phone: Comment on above: PATIENT NOT FASTINGP ERFORMED BY: CB [facility] Mdhgoc2931 [address] RoadDublin [place] [id number] Monocytes (Bld) [#/Vol] 0.9 10*3/uL Normal 0.1-0.9 [facility]; [facility] Work Phone: Comment on above: PATIENT NOT FASTINGP ERFORMED BY: CB [facility] Lidroa3524 [address] RoadDublin [place] [id number] Monocytes/100 WBC (Bld) 10 % Normal C omprehensive Internal Medicine; [facility] Work Phone: Comment on above: PATIENT NOT FASTINGP ERFORMED BY: CB [facility] Oewbso3587 [address] RoadDublin [place] [id number] Neutrophils (Bld) [#/Vol] 5.0 {x10E3/uL} Normal 1.4-7.0 [facility]; [facility] Work Phone: Comment on above: PATIENT NOT FASTINGP ERFORMED BY: HALEIGH [place]6[address]Dublin [place] [id number] Neutrophils (Bld) [#/Vol] 5.0 10*3/uL Normal 1.4-7.0 [facility]; [facility] Work Phone: Comment on above: PATIENT NOT FASTINGP ERFORMED BY: HALEIGH LabCoedgardo DallasJbumos5057 [address] RoadDublin [place] [id number] Neutrophils/100 WBC (Bld) 58 % Normal [facility]; [facility] Work Phone: Comment on above: PATIENT NOT FASTINGP ERFORMED BY: HALEIGH [place]Dublin [place] [id number] Platelets (Bld) [#/Vol] 240 {x10E3/uL} Normal 150-450 [facility]; [facility] Work Phone: Comment on above: PATIENT NOT FASTINGP ERFORMED BY: HALEIGH LabChu [place]6[address]Dublin [place] [id number] Platelets (Bld) [#/Vol] 240 10*3/uL Normal 150-450 [facility]; [facility] Work Phone: Comment on above: PATIENT NOT FASTINGP ERFORMED BY: CB Lab[facility] [place]Dublin [place] [id number] RBC (Bld) [#/Vol] 4.32 {x10E6/uL} Normal 3.77-5.28 [facility] Internal Medicine; [facility] Work Phone: Comment on above: PATIENT NOT FASTINGP ERFORMED BY: HALEIGH LabCoedgardo WarrenFdhvci9855 [address] RoadDublin [place] [id number] RBC (Bld) [#/Vol] 4.32 10*6/uL Normal 3.77-5.28 [facility] Internal Medicine; [facility] Work Phone: Comment on above: PATIENT NOT FASTINGP ERFORMED BY: HALEIGH [facility] Kxkevx1392 [address] RoadDublin [place] [id number] WBC (Bld) [#/Vol] 8.6 {x10E3/uL} Normal 3.4-10.8 [facility] Internal Medicine; [facility] Medicine Work Phone: Comment on above: PATIENT NOT FASTINGP ERFORMED BY: CB [facility] Znlbxw3248 [address] RoadDublin [place] [id number] WBC (Bld) [#/Vol] 8.6 10*3/uL Normal 3.4-10.8 [facility] Internal Medicine; [facility] Work Phone: Comment on above: PATIENT NOT FASTINGP ERFORMED BY: CB [facility] Hqtdom9558 [address]blin [place] [id number] HgA1C , Office ([id number])Ordere d By: Turner Balderas on 09-15-2020 HbA1c (Bld) [Mass fraction] 5.7 % Normal 4.6 - 7.1 [facility] Internal Medicine; [facility] Work Phone: Comment on above: 5.7 Metabolic Panel, Comprehensi ve (80922)Ordered By: Gun Synchronizer on 09-15-2020 Albumin [Mass/Vol] 3.7 g/dL Normal 3.6-4.6 [facility] Internal Medicine; [facility] Work Phone: Comment on above: PATIENT NOT FASTINGP ERFORMED BY: CB [facility] Qrfcto0668 [address] [facility]in [place] [id number] Albumin/Globulin [Mass ratio] 1.4 {ratio} Normal 1.2-2.2 [facility] Internal Medicine; [facility] Work Phone: Comment on above: PATIENT NOT FASTINGP ERFORMED BY: CB [facility] Jptyho9359 [address] RoadDublin [place] [id number] ALP [Catalytic activity/Vol] 71 [iU]/L Normal 39-117 [facility]; [facility] Work Phone: Comment on above: PATIENT NOT FASTINGP ERFORMED BY: CB [facility] Pxfydb4041 [address] RoadDublin [place] [id number] ALP [Catalytic activity/Vol] 71 U/L Normal 39-117 [facility]; [facility] Work Phone: Comment on above: PATIENT NOT FASTINGP ERFORMED BY: HALEIGH Warrenlin6370 [address] RoadDublin [place] [id number] ALT [Catalytic activity/Vol] 28 [iU]/L Normal 0-32 [facility]; [facility] Work Phone: Comment on above: PATIENT NOT FASTINGP ERFORMED BY: CB [facility] Vhonwt9826 [address] RoadDublin [place] [id number] ALT [Catalytic activity/Vol] 28 U/L Normal 0-32 [facility]; [facility] Work Phone: Comment on above: PATIENT NOT FASTINGP ERFORMED BY: HALEIGH Warrenlin6370 [address] RoadDublin [place] [id number] AST [Catalytic activity/Vol] 26 [iU]/L Normal 0-40 [facility]; [facility] Work Phone: Comment on above: PATIENT NOT FASTINGP ERFORMED BY: HALEIGH [facility] Ndtxiv2764 [address] RoadDublin [place] [id number] AST [Catalytic activity/Vol] 26 U/L Normal 0-40 [facility]; [facility] Work Phone: Comment on above: PATIENT NOT FASTINGP ERFORMED BY: HALEIGH [facility] Otkbjo8348 [address] RoadDublin [place] [id number] Bilirubin [Mass/Vol] 0.9 mg/dL Normal 0.0-1.2 [facility]; [facility] Work Phone: Comment on above: PATIENT NOT FASTINGP ERFORMED BY: CB [facility] Tfswoi9380 [address] RoadDublin [place] [id number] Calcium [Mass/Vol] 9.5 mg/dL Normal 8.7-10.3 [facility] Internal Medicine; [facility] Work Phone: Comment on above: PATIENT NOT FASTINGP ERFORMED BY: CB [facility] Xulexx7145 [address]Dublin [place] [id number] Chloride [Moles/Vol] 106 mmol/L Normal 96-106 Comp rehensive Internal Medicine; [facility] Work Phone: Comment on above: PATIENT NOT FASTINGP ERFORMED BY: CB [facility] Lhltiu7701 [address]Dublin [place] [id number] CO2 [Moles/Vol] 23 mmol/L Normal 20-29 [facility] Internal Medicine; [facility] Work Phone: Comment on above: PATIENT NOT FASTINGP ERFORMED BY: CB [facility] Buiwzh1483 [address] RoadDublin [place] [id number] Creatinine [Mass/Vol] 1.22 mg/dL Abnormal 0.57-1.00 [facility]; [facility] Work Phone: Comment on above: PATIENT NOT FASTINGP ERFORMED BY: CB [facility] Gxcskt2374 [address] RoadDublin [place] [id number] GFR/1.73 sq M predicted among blacks CKD-EPI (S/P/Bld) [Vol rate/Area] 47 mL/min/1.73 Abnormal [facility]; [facility] Work Phone: Comment on above: PATIENT NOT FASTINGP ERFORMED BY: CB [facility] Soxdde7853 [address]Dublin [place] [id number] GFR/1.73 sq M predicted among non-blacks CKD-EPI (S/P/Bld) [Vol rate/Area] 41 mL/min/1.73 Abnormal [facility]; [facility] Work Phone: Comment on above: PATIENT NOT FASTINGP ERFORMED BY: CB [facility] Cesnnj3392 [address] RoadDublin [place] [id number] Globulin (S) [Mass/Vol] 2.6 g/dL Normal 1.5-4.5 C omprehensive Internal Medicine; [facility] Work Phone: Comment on above: PATIENT NOT FASTINGP ERFORMED BY: CB [facility] Gizsej2767 [address] RoadDublin [place] [id number] Glucose [Mass/Vol] 105 mg/dL Abnormal 65-99 Compre [facility]ive Internal [facility]; [facility] Work Phone: Comment on above: PATIENT NOT FASTINGP ERFORMED BY: CB [facility] Lbharb1320 [address]Dublin [place] [id number] Potassium [Moles/Vol] 4.8 mmol/L Normal 3.5-5.2 [facility]; [facility] Work Phone: Comment on above: PATIENT NOT FASTINGP ERFORMED BY: CB [facility] Bfjzpt3710 [address]Dublin [place] [id number] Protein [Mass/Vol] 6.3 g/dL Normal 6.0-8.5 [facility] Internal Medicine; [facility] Work Phone: Comment on above: PATIENT NOT FASTINGP ERFORMED BY: CB [facility] Faxmec5708 [address]Dublin [place] [id number] Sodium [Moles/Vol] 142 mmol/L Normal 134-144 [facility] Internal Medicine; [facility] Work Phone: Comment on above: PATIENT NOT FASTINGP ERFORMED BY: CB [facility] Obkvqv7701 [address]Dublin [place] [id number] Urea nitrogen [Mass/Vol] 26 mg/dL Normal 8-27 [facility]; [facility] Work Phone: Comment on above: PATIENT NOT FASTINGP ERFORMED BY: CB [facility] Yrueeh4350 [address]Dublin [place] [id number] Urea nitrogen/Creatinine [Mass ratio] 21 mg/mg Normal 12-28 [facility]; [facility] Work Phone: Comment on above: PATIENT NOT FASTINGP ERFORMED BY: CB [facility] Qmdbff7691 [address]Dublin [place] [id number] TSH ([id number])Ordered By: Marcelo Darnell on 09-15-2020 TSH Qn 2.220 {uIU/mL} Normal 0.450-4.50 0 [facility]; [facility] Work Phone: Comment on above: PATIENT NOT FASTINGP ERFORMED BY: CB [facility] Bmdubv1835 [address] RoadDublin [place] [id number] Maximilian 08-21-2020 [facility] Telephone (FAMPWS) DEBBIE MIRELES ([id number]) 1935 F Date Time Provider Department 08/21/20 [...] is being recommended for COIVD treatment. website: Elasticsearchovid-19ohiohealth southeastern medical centerCyberArk [employer], [employer] eaiance 3 doctors: Dr. John Paul Mendoza [...] Reason for Visit: Follow Up Phone Call [1900] Cmt: Daughter called Prescriptions as of 08/21/2020 [...] COMPOUNDED PRESCRIPTION Artery Cleanse COMPOUNDED PRESCRIPTION Cardio [place] Healthy heart* OMEGA 0-DBA-KDB-OTHER OM3-D3 * Take by mouth. ASPIRIN 82 [...] Status:Closed by MARI CASON LPN on 08/22/20 [facility]IED [facility] 02-24-2019 [facility] HNO ID: [id number] Author: Natali Cannon (Tech) Service: Radiology Author Type: Press Maintainer Type: Allied Health Filed: 02/24/2019 8:07 AM [...] DATE: February 24, 2019 TIME: 8:05 AM [facility] MRI 3D POST PROCESSINGon MRI 3D POST PROCESSING * * *Final Report * * * DATE OF EXAM: Feb 24 2019 8:34AM [facility] 0280 - MRI 3D POST PROCESSING / PROCEDURE REASON: K86.2-Pancreatic cyst * * * * Physician Interpretation * * * * MRI OF THE ABDOMEN WITHOUT AND WITH CONTRAST: CLINICAL HISTORY: Follow-up pancreatic cysts COMPARISON: 05/01/2017 MRI TECHNIQUE: Using the torso phased array coil, axial STIR, T1 weighted in- and [id number]-[id number] and axial and coronal HASTE images were [...] IMPRESSION: Tiny scattered pancreatic cysts are stable. High Pressure Cleaner: OSCAR Transcribe Date/Time: Feb 24 2019 12:37P Dictated by : OVIDIO RAMIREZ MD This examination was interpreted and the report reviewed and electronically signed by: OVIDIO RAMIREZ MD on Feb 24 2019 1:33PM EST [id number] N [facility] MRI PANC/ASHLYN WO/W IVCONon MRI PANC/ASHLYN WO/W IVCON * * *Final Repor t* * * DATE OF EXAM: Feb 24 2019 8:34AM [facility] 0730 - MRI PANC/ASHLYN WO/W IVCON / PROCEDURE REASON: K86.2-Pancreatic cyst * * * * Physician Interpretation * * * * MRI OF THE ABDOMEN WITHOUT AND WITH CONTRAST: CLINICAL HISTORY: Follow-up pancreatic cysts COMPARISON: 05/01/2017 MRI TECHNIQUE: Using the torso phased array coil, axial STIR, T1 weighted in- and qyf-dz-jbktv and axial and coronal HASTE images were [...] IMPRESSION: Tiny scattered pancreatic cysts are stable. High Pressure Cleaner: OSCAR Transcribe Date/Time: Feb 24 2019 12:37P Dictated by : OVIDIO RAMIREZ MD This examination was interpreted and the report reviewed and electronically signed by: OVIDIO RAMIREZ MD on Feb 24 2019 1:33PM EST [id number] N Normal [facility] FOOT COMPLETE RT 8 FOOT COMPLETE RT [place] [address] [address] [place] [address] Patient: DEBBIE MIRELES Phone#: : [phone] Age: 82 Gender: F Pt. Type: Out Account: [id number] Location: Ordering: CELIO GAYLE Exam Date: 01/27/2018/16:19 Family Phys: PHILIP KUMAR Charge Code: 659443 Physician: [place] Order #: [id number] DLP Dose#: PROCEDURE: X-RAY FOOT RT COMPLETE [...] Mitchell MD on 01/27/2018 at 16:45 Normal [facility] Office Visit: terrell fung ison 05-09-2017 Fall risk assessment No Invalid Interpretation Code [facility] Work Phone: Protein mass conc Done Invalid Interpretation Code ST. [facility] Work Phone: Tobacco smoking status NHIS Never smoker Invalid Interpretation Code [facility] Work Phone: Anaerobic culture Bacteria identified Anaer cx Nom (Unsp spec) No growth in 5 days. [facility] Work Phone: Bacteria identified Anaer cx Nom (Unsp spec) No anaerobic bacteria isolated. [facility] Work Phone: Bacteria identified Anaer cx Nom (Unsp spec) Anaerobic microbial culture No anaerobic bacteria isolated. [facility] Work Phone: Bacteria identified Cx Nom ( Wound) Wound Culture Pseudomonas aeroginosa [facility] Work Phone: COVID-19 virus antigen assay SARS-CoV-2 (COVID-19) Ag IA.rapid Ql (Resp) [facility] Work Phone: Culture, urine Bacteria identified Cx Nom (U) Mixed Gram Pos & Gram Neg Org [facility] Work Phone: Gram stain for investigation of transfusion reaction Microscopic observation Gram stain Nom (Unsp spec) [facility] Work Phone: Influenza virus A and B and SARS-CoV-2 (COVID-19) Ag panel - Upper respiratory specim SARS-CoV-2 (COVID-19) RNA KAYLIE+probe Ql (Resp) [facility] Work Phone: Laboratory - Microbiology an d Antimicrobial susceptibility Bacteria identified Cx Nom (Bld) No growth in 5 days. [facility] Work Phone: No Panel Information SARS-CoV-2 & FLU Antigen (Rapid) [facility] Work Phone: RSV Ag EIA RSV Ag Immune stain Ql (Tiss) [facility] Work Phone: Routine wound culture Bacteria identified Cx Nom (Wound) No growth aerobically. [facility] Work Phone: Vital Signs Date Time Vital Sign Value Performing Clinician Facility 01-01-2025 12:21-0400 Body temperature 98.2 [degF] Dr. Martina Lal DO Work Phone: [facility] 01-01-2025 12:21-0400 Diastolic blood pressure 64 mm[Hg] Dr. Martina Lal DO Work Phone: [facility] 01-01-2025 12:21-0400 Heart rate 85 /min Dr. Martina Lal DO Work Phone: [facility] 01-01-2025 12:21-0400 Respiratory rate 17 /min Dr. Martina Lal DO Work Phone: [facility] 01-01-2025 12:21-0400 SaO2% (BldA) [Mass fraction] 96 % Dr. Martina Lal DO Work Phone: [facility] 01-01-2025 12:21-0400 Systolic blood pressure 144 mm[Hg] Dr. Martina Lal DO Work Phone: [facility] 12-24-2024 09:29-0400 Body height 157.[address] Martina Lal DO Work Phone: [facility] 12-16-2024 14:22-0400 Diastolic blood pressure 50 mm[Hg] Dr. Martina Lal DO Work Phone: [facility] 12-16-2024 14:22-0400 Systolic blood pressure 148 mm[Hg] Dr. Martina Lal DO Work Phone: [facility] 12-16-2024 09:36-0400 Body mass index (BMI) [Ratio] 41.1 kg/m2 Dr. Martina Lal DO Work Phone: [facility] 12-16-2024 09:36-0400 Body weight 102.[address] Martina Lal DO Work Phone: [facility] 12-16-2024 09:36-0400 Heart rate 73 /min Dr. Martina Lal DO Work Phone: [facility] 12-16-2024 09:36-0400 Respiratory rate 20 /min Dr. Martina Lal DO Work Phone: [facility] 12-16-2024 09:36-0400 SaO2% (BldA) [Mass fraction] 96 % Dr. Martina Lal DO Work Phone: [facility] 08-17-2024 12:53-0500 Body height 157.[address] Martina Lal DO Work Phone: [facility] 08-17-2024 12:53-0500 Body mass index (BMI) [Ratio] 40.6 kg/m2 Dr. Martina Lal DO Work Phone: [facility] 08-17-2024 12:53-0500 Body weight 100.[address] Martina Lal DO Work Phone: [facility] 08-17-2024 12:53-0500 Diastolic blood pressure 70 mm[Hg] Dr. Martina Lal DO Work Phone: [facility] 08-17-2024 12:53-0500 Heart rate 74 /min Dr. Martina Lal DO Work Phone: [facility] 08-17-2024 12:53-0500 Respiratory rate 18 /min Dr. Martina Lal DO Work Phone: [facility] 08-17-2024 12:53-0500 SaO2% (BldA) [Mass fraction] 96 % Dr. Martina Lal DO Work Phone: [facility] 08-17-2024 12:53-0500 Systolic blood pressure 148 mm[Hg] Dr. Martina Lal DO Work Phone: [facility] 08-09-2024 15:56-0500 Body temperature 97.8 [degF] Dr. Martina Lal DO Work Phone: [facility] 08-09-2024 15:56-0500 Body weight 102.[address] Martina Lal DO Work Phone: [facility] 08-09-2024 15:56-0500 Diastolic blood pressure 60 mm[Hg] Dr. Martina Lal DO Work Phone: [facility] 08-09-2024 15:56-0500 Heart rate 80 /min Dr. Martina Lal DO Work Phone: [facility] 08-09-2024 15:56-0500 Respiratory rate 16 /min Dr. Martina Lal DO Work Phone: [facility] 08-09-2024 15:56-0500 SaO2% (BldA) [Mass fraction] 92 % Dr. Martina Lal DO Work Phone: [facility] 08-09-2024 15:56-0500 Systolic blood pressure 144 mm[Hg] Dr. Martina Lal DO Work Phone: [facility] 10-16-2023 09:36-0400 Body height 154.[address] Martina Lal Work Phone: [facility] 10-16-2023 09:36-0400 Body mass index (BMI) [Ratio] 41.1 kg/m2 Dr. Martina Lal Work Phone: [facility] 10-16-2023 09:36-0400 Body weight 98.[address] Martina Lal Work Phone: [facility] 10-16-2023 09:36-0400 Diastolic blood pressure 66 mm[Hg] Dr. Martina Lal Work Phone: [facility] 10-16-2023 09:36-0400 Heart rate 53 /min Dr. Martina Lal Work Phone: [facility] 10-16-2023 09:36-0400 Respiratory rate 20 /min Dr. Martina Lal Work Phone: [facility] 10-16-2023 09:36-0400 Systolic blood pressure 149 mm[Hg] Dr. Martina Lal Work Phone: [facility] 09-10-2023 19:11-0500 Body temperature 97.5 [degF] Dr. Martina Lal Work Phone: [facility] 09-10-2023 19:11-0500 Diastolic blood pressure 82 mm[Hg] Dr. Martina Lal Work Phone: [facility] 09-10-2023 19:11-0500 Heart rate 87 /min Dr. Martina Lal Work Phone: [facility] 09-10-2023 19:11-0500 Respiratory rate 16 /min Dr. Martina Lal Work Phone: [facility] 09-10-2023 19:11-0500 SaO2% (BldA) [Mass fraction] 96 % Dr. Martina Lal Work Phone: [facility] 09-10-2023 19:11-0500 Systolic blood pressure 164 mm[Hg] Dr. Martina Lal Work Phone: [facility] 09-10-2023 16:26-0500 Body height 154.[address] Martina Lal Work Phone: [facility] 09-10-2023 16:26-0500 Body mass index (BMI) [Ratio] 38.7 kg/m2 Dr. Martina Lal Work Phone: [facility] 09-10-2023 16:26-0500 Body weight 92.[address] Martina Lal Work Phone: [facility] 06-03-2023 07:46-0500 Body height 154.[address] Martina Lal Work Phone: [facility] 06-03-2023 07:46-0500 Body mass index (BMI) [Ratio] 39.2 kg/m2 Dr. Martina Lal Work Phone: [facility] 06-03-2023 07:46-0500 Body temperature 97.6 [degF] Dr. Martina Lal Work Phone: [facility] 06-03-2023 07:46-0500 Body weight 94.[address] Martina Lal Work Phone: [facility] 06-03-2023 07:46-0500 Diastolic blood pressure 54 mm[Hg] Dr. Martina Lal Work Phone: [facility] 06-03-2023 07:46-0500 Heart rate 61 /min Dr. Martina Lal Work Phone: [facility] 06-03-2023 07:46-0500 SaO2% (BldA) [Mass fraction] 95 % Dr. Martina Lal Work Phone: [facility] 06-03-2023 07:46-0500 Systolic blood pressure 139 mm[Hg] Dr. Martina Lal Work Phone: [facility] 04-08-2023 14:59-0400 Body temperature 98 [degF] Dr. Martina Lal Work Phone: [facility] 04-08-2023 14:59-0400 Diastolic blood pressure 69 mm[Hg] Dr. Martina Lal Work Phone: [facility] 04-08-2023 14:59-0400 Heart rate 66 /min Dr. Martina Lal Work Phone: [facility] 04-08-2023 14:59-0400 Respiratory rate 16 /min Dr. Martina Lal Work Phone: [facility] 04-08-2023 14:59-0400 SaO2% (BldA) [Mass fraction] 97 % Dr. Martina Lal Work Phone: [facility] 04-08-2023 14:59-0400 Systolic blood pressure 182 mm[Hg] Dr. Martina Lal Work Phone: [facility] 03-03-2023 13:39-0400 Body height 154.[address] Martina Lal Work Phone: [facility] 03-03-2023 13:39-0400 Body mass index (BMI) [Ratio] 39.9 kg/m2 Dr. Martina Lal Work Phone: [facility] 03-03-2023 13:39-0400 Body weight 95.[address] Martina Lal Work Phone: [facility] 03-03-2023 13:39-0400 Diastolic blood pressure 67 mm[Hg] Dr. Martina Lal Work Phone: [facility] 03-03-2023 13:39-0400 Heart rate 66 /min Dr. Martina Lal Work Phone: [facility] 03-03-2023 13:39-0400 Respiratory rate 18 /min Dr. Martina Lal Work Phone: [facility] 03-03-2023 13:39-0400 Systolic blood pressure 159 mm[Hg] Dr. Martina Lal Work Phone: [facility] 01-31-2023 14:33-0400 Body height 155.57 cm Katharina Marion [facility] Work Phone: 01-31-2023 14:33-0400 Body mass index (BMI) [Ratio] 40.67 kg/m2 Katharina Marion [facility] Work Phone: 01-31-2023 14:33-0400 Body surface area Derived from formula 1.96 m2 [facility] Work Phone: 01-31-2023 14:33-0400 Body temperature 97.8 [degF] [facility] Work Phone: Comment on above: Method: Thermal Scan 01-31-2023 14:33-0400 Body weight 98.43 kg Katharina Marion [facility]; [facility] Work Phone: 01-31-2023 14:33-0400 Diastolic blood pressure 62 mm[Hg] [facility] Work Phone: Comment on above: Patient Position: Sitting; Cuff Location : Left Arm; Cuff Size: Standard 01-31-2023 14:33-0400 Heart rate 68 /min Katharinawu Marion [facility]; [facility] Work Phone: Comment on above: Pattern: Regular 01-31-2023 14:33-0400 Respiratory rate 16 /min [facility] Work Phone: Comment on above: Pattern: Unlabored 01-31-2023 14:33-0400 SaO2% (BldA) [Mass fraction] 95 % [facility] Work Phone: Comment on above: Room air 01-31-2023 14:33-0400 Systolic blood pressure 122 mm[Hg] [facility] Work Phone: Comment on above: Patient Position: Sitting; Cuff Location : Left Arm; Cuff Size: Standard 12-02-2022 13:46-0400 Body height 154.[address] Martina Lal Work Phone: [facility] 12-02-2022 13:46-0400 Body mass index (BMI) [Ratio] 39.9 kg/m2 Dr. Martina Lal Work Phone: [facility] 12-02-2022 13:46-0400 Body temperature 97.2 [degF] Dr. Martina Lal Work Phone: [facility] 12-02-2022 13:46-0400 Body weight 95.[address] Martina Lal Work Phone: [facility] 12-02-2022 13:46-0400 Diastolic blood pressure 55 mm[Hg] Dr. Martina Lal Work Phone: [facility] 12-02-2022 13:46-0400 Heart rate 54 /min Dr. Martina Lal Work Phone: [facility] 12-02-2022 13:46-0400 Respiratory rate 18 /min Dr. Martina Lal Work Phone: [facility] 12-02-2022 13:46-0400 SaO2% (BldA) [Mass fraction] 94 % Dr. Martina Lal Work Phone: [facility] 12-02-2022 13:46-0400 Systolic blood pressure 136 mm[Hg] Dr. Martina Lal Work Phone: [facility] 09-10-2022 07:53-0500 Body height 154.[address] Martina Lal Work Phone: [facility] 09-10-2022 07:53-0500 Body mass index (BMI) [Ratio] 40.8 kg/m2 Dr. Martina Lal Work Phone: [facility] 09-10-2022 07:53-0500 Body temperature 97 [degF] Dr. Martina Lal Work Phone: [facility] 09-10-2022 07:53-0500 Body weight 97.[address] Martina Lal Work Phone: [facility] 09-10-2022 07:53-0500 Diastolic blood pressure 66 mm[Hg] Dr. Martina Lal Work Phone: [facility] 09-10-2022 07:53-0500 Heart rate 72 /min Dr. Martina Lal Work Phone: [facility] 09-10-2022 07:53-0500 Respiratory rate 17 /min Dr. Martina Lal Work Phone: [facility] 09-10-2022 07:53-0500 SaO2% (BldA) [Mass fraction] 93 % Dr. Martina Lal Work Phone: [facility] 09-10-2022 07:53-0500 Systolic blood pressure 164 mm[Hg] Dr. Martina Lal Work Phone: [facility] 09-04-2022 15:09-0500 Body mass index (BMI) [Ratio] 40.6 kg/m2 Dr. Martina Lal Work Phone: [facility] 09-04-2022 15:09-0500 Body weight 97.[address] Martina Lal Work Phone: [facility] 09-04-2022 15:09-0500 Diastolic blood pressure 75 mm[Hg] Dr. Martina Lal Work Phone: [facility] 09-04-2022 15:09-0500 Heart rate 69 /min Dr. Martina Lal Work Phone: [facility] 09-04-2022 15:09-0500 Respiratory rate 20 /min Dr. Martina Lal Work Phone: [facility] 09-04-2022 15:09-0500 SaO2% (BldA) [Mass fraction] 95 % Dr. Martina Lal Work Phone: [facility] 09-04-2022 15:09-0500 Systolic blood pressure 175 mm[Hg] Dr. Martina Lal Work Phone: [facility] 09-02-2022 13:21-0500 Body mass index (BMI) [Ratio] 41.1 kg/m2 Dr. Martina Lal Work Phone: [facility] 09-02-2022 13:21-0500 Body temperature 97.2 [degF] Dr. Martina Lla Work Phone: [facility] 09-02-2022 13:21-0500 Body weight 98.[address] Martina Lal Work Phone: [facility] 09-02-2022 13:21-0500 Diastolic blood pressure 70 mm[Hg] Dr. Martina Lal Work Phone: [facility] 09-02-2022 13:21-0500 Heart rate 73 /min Dr. Martina Lal Work Phone: [facility] 09-02-2022 13:21-0500 Respiratory rate 18 /min Dr. Martina Lal Work Phone: [facility] 09-02-2022 13:21-0500 SaO2% (BldA) [Mass fraction] 98 % Dr. Martina Lal Work Phone: [facility] 09-02-2022 13:21-0500 Systolic blood pressure 163 mm[Hg] Dr. Martina Lal Work Phone: [facility] 08-29-2022 13:08-0500 Body height 155.57 cm Maritna Lal DO Work Phone: [facility]; [...] 13:08-0500 Diastolic blood pressure 59 mm[Hg] Alondra [facility]; [facility] Work Phone: Comment on above: Patient Position: Sitting; Cuff Location : Left Arm; Cuff Size: Standard 08-29-2022 13:08-0500 Heart rate 74 /min Martina Thorpeon DO Work Phone: [facility]; [facility] Work Phone: Comment on above: Pattern: Regular 08-29-2022 13:08-0500 Systolic blood pressure 154 mm[Hg] [facility]; [facility] Work Phone: Comment on above: Patient Position: Sitting; Cuff Location : Left Arm; Cuff Size: Standard 07-25-2022 09:12-0500 Body height 155.57 cm Alondra Stapleton [facility]; [facility] Work Phone: 07-25-2022 09:12-0500 Body mass index (BMI) [Ratio] 40.71 kg/m2 Alondra Stapleton [facility]; [facility] Work Phone: 07-25-2022 09:12-0500 Body surface area Derived from formula 1.96 m2 Alondra Stapleton [facility]; [facility] Work Phone: 07-25-2022 09:12-0500 Body temperature 96.1 [degF] Alondra Stapleton [facility]; [facility] Work Phone: 07-25-2022 09:12-0500 Body weight 98.54 kg [facility]; [facility] Work Phone: 07-25-2022 09:12-0500 Diastolic blood pressure 64 mm[Hg] [facility]; [facility] Work Phone: Comment on above: Patient Position: Sitting; Cuff Location : Left Arm; Cuff Size: Standard 07-25-2022 09:12-0500 Heart rate 72 /min [facility]; [facility] Work Phone: Comment on above: Pattern: Regular 07-25-2022 09:12-0500 Respiratory rate 16 /min [facility]; [facility] Work Phone: Comment on above: Pattern: Unlabored 07-25-2022 09:12-0500 SaO2% (BldA) [Mass fraction] 95 % [facility]; [facility] Work Phone: Comment on above: Room air 07-25-2022 09:12-0500 Systolic blood pressure 122 mm[Hg] [facility]; [facility] Work Phone: Comment on above: Patient Position: Sitting; Cuff Location : Left Arm; Cuff Size: Standard 07-18-2022 08:01-0500 Body height 154.[address] Martian Lal Work Phone: [facility] 07-18-2022 08:01-0500 Body mass index (BMI) [Ratio] 41.5 kg/m2 Dr. Martina Lal Work Phone: [facility] 07-18-2022 08:01-0500 Body temperature 97.2 [degF] Dr. Martina Lal Work Phone: [facility] 07-18-2022 08:01-0500 Body weight 99.[address] Martina Lal Work Phone: [facility] 07-18-2022 08:01-0500 Diastolic blood pressure 80 mm[Hg] Dr. Martina Lal Work Phone: [facility] 07-18-2022 08:01-0500 Heart rate 78 /min Dr. Martina Lal Work Phone: [facility] 07-18-2022 08:01-0500 Respiratory rate 18 /min Dr. Martina Lal Work Phone: [facility] 07-18-2022 08:01-0500 SaO2% (BldA) [Mass fraction] 96 % Dr. Martina Lal Work Phone: [facility] 07-18-2022 08:01-0500 Systolic blood pressure 153 mm[Hg] Dr. Martina Lal Work Phone: [facility] 07-17-2022 14:32-0500 Body temperature 98 [degF] Dr. Martina Lal Work Phone: [facility] 07-17-2022 14:32-0500 Diastolic blood pressure 54 mm[Hg] Dr. Martina Lal Work Phone: [facility] 07-17-2022 14:32-0500 Heart rate 86 /min Dr. Martina Lal Work Phone: [facility] 07-17-2022 14:32-0500 Respiratory rate 18 /min Dr. Martina Lal Work Phone: [facility] 07-17-2022 14:32-0500 SaO2% (BldA) [Mass fraction] 92 % Dr. Martina Lal Work Phone: [facility] 07-17-2022 14:32-0500 Systolic blood pressure 182 mm[Hg] Dr. Martina Lal Work Phone: [facility] 07-17-2022 10:27-0500 Inhaled oxygen flow rate 2 L/min Dr. Martina Lal Work Phone: [facility] 07-17-2022 05:59-0500 Body weight [address] Martina Lal Work Phone: [facility] 07-14-2022 10:52-0500 Body height 154.[address] Martina Lal Work Phone: [facility] Work Phone: 07-14-2022 01:44-0500 Body mass index (BMI) [Ratio] 49.1 kg/m2 Dr. Martina Lal Work Phone: [facility] 07-14-2022 00:40-0500 Body temperature 97.6 [degF] Dr. Martina Lal Work Phone: [facility] Work Phone: 07-14-2022 00:40-0500 Diastolic blood pressure 55 mm[Hg] Dr. Martina Lal Work Phone: [facility] Work Phone: 07-14-2022 00:40-0500 Heart rate 79 /min Dr. Martina Lal Work Phone: [facility] Work Phone: 07-14-2022 00:40-0500 Respiratory rate 10 /min Dr. Martina Lal Work Phone: [facility] Work Phone: 07-14-2022 00:40-0500 SaO2% (BldA) [Mass fraction] 95 % Dr. Martina Lal Work Phone: [facility] Work Phone: 07-14-2022 00:40-0500 Systolic blood pressure 167 mm[Hg] Dr. Martina Lal Work Phone: [facility] Work Phone: 07-13-2022 18:49-0500 Body height 154.[address] Martina Lal Work Phone: [facility] Work Phone: 07-13-2022 18:49-0500 Body mass index (BMI) [Ratio] 42.9 kg/m2 Dr. Martina Lal Work Phone: [facility] Work Phone: 07-13-2022 18:49-0500 Body weight [address] Martina Lal Work Phone: [facility] Work Phone: 07-10-2022 14:53-0500 Body height 155.57 cm [facility] Work Phone: 07-10-2022 14:53-0500 Body mass index (BMI) [Ratio] 43.18 kg/m2 [facility]; [facility] Work Phone: 07-10-2022 14:53-0500 Body surface area Derived from formula 2.01 [facility] Work Phone: 07-10-2022 14:53-0500 Body temperature 96.6 [degF] [facility]; [facility] Work Phone: 07-10-2022 14:53-0500 Body weight 104.51 kg [facility]; [facility] Work Phone: 07-10-2022 14:53-0500 Diastolic blood pressure 68 mm[Hg] [facility]; [facility] Work Phone: Comment on above: Patient Position: Sitting; Cuff Location : Left Arm; Cuff Size: Standard 07-10-2022 14:53-0500 Heart rate 68 /min [facility]; [facility] Work Phone: Comment on above: Pattern: Regular 07-10-2022 14:53-0500 Respiratory rate 16 /min [facility]; [facility] Work Phone: Comment on above: Pattern: Unlabored 07-10-2022 14:53-0500 SaO2% (BldA) [Mass fraction] 95 % [facility]; [facility] Work Phone: Comment on above: Room air 07-10-2022 14:53-0500 Systolic blood pressure 142 mm[Hg] Alondra [facility]; [facility] Work Phone: Comment on above: Patient Position: Sitting; Cuff Location : Left Arm; Cuff Size: Standard 07-10-2022 12:54-0500 Body mass index (BMI) [Ratio] 41.9 kg/m2 Dr. Martina Lal Work Phone: [facility] 07-10-2022 12:54-0500 Body weight 100.[address] Martina Lal Work Phone: [facility] 07-10-2022 12:54-0500 Diastolic blood pressure 69 mm[Hg] Dr. Martina Lal Work Phone: [facility] 07-10-2022 12:54-0500 Heart rate 80 /min Dr. Martina Lal Work Phone: [facility] 07-10-2022 12:54-0500 Respiratory rate 20 /min Dr. Martina Lal Work Phone: [facility] 07-10-2022 12:54-0500 SaO2% (BldA) [Mass fraction] 97 % Dr. Martina Lal Work Phone: [facility] 07-10-2022 12:54-0500 Systolic blood pressure 178 mm[Hg] Dr. Martina Lal Work Phone: [facility] 07-07-2022 15:45-0500 Body temperature 97.5 [degF] Dr. Martina Lal Work Phone: [facility] 07-07-2022 15:45-0500 Diastolic blood pressure 50 mm[Hg] Dr. Martina Lal Work Phone: [facility] 07-07-2022 15:45-0500 Heart rate 65 /min Dr. Martina Lal Work Phone: [facility] 07-07-2022 15:45-0500 Respiratory rate 18 /min Dr. Martina Lal Work Phone: [facility] 07-07-2022 15:45-0500 SaO2% (BldA) [Mass fraction] 96 % Dr. Martina Lal Work Phone: [facility] 07-07-2022 15:45-0500 Systolic blood pressure 161 mm[Hg] Dr. Martina Lal Work Phone: [facility] 07-07-2022 02:15-0500 Inhaled oxygen flow rate 2 L/min Dr. Martina Lal Work Phone: [facility] 07-04-2022 11:57-0500 Body weight 103.[address] Martina Lal Work Phone: [facility] 07-02-2022 12:59-0500 Body mass index (BMI) [Ratio] 43.2 kg/m2 Dr. Martina Lal Work Phone: [facility] 07-02-2022 11:50-0500 Body temperature 98.4 [degF] Dr. Martina Lal Work Phone: [facility] Work Phone: 07-02-2022 11:50-0500 Diastolic blood pressure 98 mm[Hg] Dr. Martina Lal Work Phone: [facility] Work Phone: 07-02-2022 11:50-0500 Heart rate 61 /min Dr. Martina Lal Work Phone: [facility] Work Phone: 07-02-2022 11:50-0500 Inhaled oxygen flow rate 2.5 L/min Dr. Martina Lal Work Phone: [facility] Work Phone: 07-02-2022 11:50-0500 Respiratory rate 18 /min Dr. Martina Lal Work Phone: [facility] Work Phone: 07-02-2022 11:50-0500 SaO2% (BldA) [Mass fraction] 94 % Dr. Martina Lal Work Phone: [facility] Work Phone: 07-02-2022 11:50-0500 Systolic blood pressure 114 mm[Hg] Dr. Martina Lal Work Phone: [facility] Work Phone: 07-02-2022 07:26-0500 Body height 154.[address] Martina Lal Work Phone: [facility] Work Phone: 07-02-2022 07:26-0500 Body mass index (BMI) [Ratio] 42.9 kg/m2 Dr. Martina Lal Work Phone: [facility] Work Phone: 07-02-2022 07:26-0500 Body weight 102.[address] Martina Lal Work Phone: [facility] Work Phone: 06-18-2022 14:46-0500 Body height 154.[address] Martina Lal Work Phone: [facility] Work Phone: 06-18-2022 14:34-0500 Body mass index (BMI) [Ratio] 43.4 kg/m2 Dr. Martina Lal Work Phone: [facility] 06-18-2022 14:34-0500 Body temperature 98.4 [degF] Dr. Martina Lal Work Phone: [facility] 06-18-2022 14:34-0500 Body weight 104.[address] Martina Lal Work Phone: [facility] 06-18-2022 14:34-0500 Diastolic blood pressure 68 mm[Hg] Dr. Martina Lal Work Phone: [facility] 06-18-2022 14:34-0500 Heart rate 71 /min Dr. Martina Lal Work Phone: [facility] 06-18-2022 14:34-0500 Respiratory rate 16 /min Dr. Martina Lal Work Phone: [facility] 06-18-2022 14:34-0500 SaO2% (BldA) [Mass fraction] 94 % Dr. Martina Lal Work Phone: [facility] 06-18-2022 14:34-0500 Systolic blood pressure 189 mm[Hg] Dr. Martina Lal Work Phone: [facility] 06-11-2022 14:52-0500 Body mass index (BMI) [Ratio] 43.5 kg/m2 Dr. Martina Lal Work Phone: [facility] 06-11-2022 14:52-0500 Body temperature 98 [degF] Dr. Martina Lal Work Phone: [facility] 06-11-2022 14:52-0500 Body weight 104.[address] Martina Lal Work Phone: [facility] 06-11-2022 14:52-0500 Diastolic blood pressure 69 mm[Hg] Dr. Martina Lal Work Phone: [facility] 06-11-2022 14:52-0500 Heart rate 65 /min Dr. Martina Lal Work Phone: [facility] 06-11-2022 14:52-0500 Respiratory rate 16 /min Dr. Martina Lal Work Phone: [facility] 06-11-2022 14:52-0500 SaO2% (BldA) [Mass fraction] 92 % Dr. Martina Lal Work Phone: [facility] 06-11-2022 14:52-0500 Systolic blood pressure 177 mm[Hg] Dr. Martina Lal Work Phone: [facility] 06-10-2022 14:17-0500 Body temperature 97.1 [degF] [facility]; [facility] Work Phone: 06-10-2022 14:17-0500 Diastolic blood pressure 70 mm[Hg] [facility]; [facility] Work Phone: Comment on above: Patient Position: Sitting; Cuff Location : Left Arm; Cuff Size: Standard 06-10-2022 14:17-0500 Heart rate 76 /min [facility]; [facility] Work Phone: Comment on above: Pattern: Regular 06-10-2022 14:17-0500 Respiratory rate 16 /min [facility]; [facility] Work Phone: Comment on above: Pattern: Unlabored 06-10-2022 14:17-0500 SaO2% (BldA) [Mass fraction] 94 % [facility]; [facility] Work Phone: Comment on above: Room air 06-10-2022 14:17-0500 Systolic blood pressure 132 mm[Hg] [facility]; [facility] Work Phone: Comment on above: Patient Position: Sitting; Cuff Location : Left Arm; Cuff Size: Standard 06-06-2022 15:06-0500 Body temperature 97.5 [degF] Dr. Martina Lal Work Phone: [facility] 06-06-2022 15:06-0500 Diastolic blood pressure 45 mm[Hg] Dr. Martina Lal Work Phone: [facility] 06-06-2022 15:06-0500 Heart rate 57 /min Dr. Martina Lal Work Phone: [facility] 06-06-2022 15:06-0500 Respiratory rate 17 /min Dr. Martina Lal Work Phone: [facility] 06-06-2022 15:06-0500 SaO2% (BldA) [Mass fraction] 92 % Dr. Maritna Lal Work Phone: [facility] 06-06-2022 15:06-0500 Systolic blood pressure 148 mm[Hg] Dr. Martina Lal Work Phone: [facility] 06-04-2022 14:01-0500 Body height 154.[address] Martina Lal Work Phone: [facility] Work Phone: 06-04-2022 14:01-0500 Body mass index (BMI) [Ratio] 43.2 kg/m2 Dr. Martina Lal Work Phone: [facility] 06-04-2022 14:01-0500 Body weight 103.[address] Martina Lal Work Phone: [facility] 06-04-2022 14:01-0500 Diastolic blood pressure 66 mm[Hg] Dr. Martina Lal Work Phone: [facility] 06-04-2022 14:01-0500 Heart rate 55 /min Dr. Martina Lal Work Phone: [facility] 06-04-2022 14:01-0500 Respiratory rate 20 /min Dr. Martina Lal Work Phone: [facility] 06-04-2022 14:01-0500 SaO2% (BldA) [Mass fraction] 96 % Dr. Martina Lal Work Phone: [facility] 06-04-2022 14:01-0500 Systolic blood pressure 133 mm[Hg] Dr. Martina Lal Work Phone: [facility] 06-04-2022 11:00-0500 Body weight 104.[address] Martina Lal Work Phone: [facility] 05-24-2022 14:27-0400 Inhaled oxygen flow rate 2 L/min Dr. Martina Lal Work Phone: [facility] 05-23-2022 17:57-0400 Body mass index (BMI) [Ratio] 43.7 kg/m2 Dr. Martina Lal Work Phone: [facility] 05-23-2022 15:05-0400 Heart rate 69 /min Dr. Martina Lal Work Phone: [facility] 05-23-2022 15:00-0400 Body temperature 97.3 [degF] Dr. Martina Lal Work Phone: [facility] 05-23-2022 15:00-0400 Diastolic blood pressure 38 mm[Hg] Dr. Martina Lal Work Phone: [facility] 05-23-2022 15:00-0400 Inhaled oxygen flow rate 2 L/min Dr. Martina Lal Work Phone: [facility] 05-23-2022 15:00-0400 Respiratory rate 20 /min Dr. Martina Lal Work Phone: [facility] 05-23-2022 15:00-0400 SaO2% (BldA) [Mass fraction] 95 % Dr. Martina Lal Work Phone: [facility] 05-23-2022 15:00-0400 Systolic blood pressure 143 mm[Hg] Dr. Martina Lal Work Phone: [facility] 05-23-2022 05:54-0400 Body weight 104.[address] Martina Lal Work Phone: [facility] 05-21-2022 15:23-0400 Body height 154.[address] Martina Lal Work Phone: [facility] Work Phone: 05-20-2022 01:33-0400 Body mass index (BMI) [Ratio] 44 kg/m2 Dr. Martina Lal Work Phone: [facility] 05-20-2022 00:58-0400 Body temperature 98 [degF] Dr. Martina Lal Work Phone: [facility] Work Phone: 05-20-2022 00:58-0400 Diastolic blood pressure 60 mm[Hg] Dr. Martina Lal Work Phone: [facility] Work Phone: 05-20-2022 00:58-0400 Heart rate 70 /min Dr. Martina Lal Work Phone: [facility] Work Phone: 05-20-2022 00:58-0400 Inhaled oxygen flow rate 2 L/min Dr. Martina Lal Work Phone: [facility] Work Phone: 05-20-2022 00:58-0400 Respiratory rate 18 /min Dr. Martina Lal Work Phone: [facility] Work Phone: 05-20-2022 00:58-0400 SaO2% (BldA) [Mass fraction] 94 % Dr. Martina Lal Work Phone: [facility] Work Phone: 05-20-2022 00:58-0400 Systolic blood pressure 175 mm[Hg] Dr. Martina Lal Work Phone: [facility] Work Phone: 05-19-2022 22:18-0400 Body height 154.[address] Martina Lal Work Phone: [facility] Work Phone: 05-19-2022 22:18-0400 Body mass index (BMI) [Ratio] 43.4 kg/m2 Dr. Martina Lal Work Phone: [facility] Work Phone: 05-19-2022 22:18-0400 Body weight 104.[address] Martina Lal Work Phone: [facility] Work Phone: 05-18-2022 13:15-0400 Body temperature 97.9 [degF] Dr. Martina Lal Work Phone: [facility] 05-18-2022 13:15-0400 Diastolic blood pressure 80 mm[Hg] Dr. Martina Lal Work Phone: [facility] 05-18-2022 13:15-0400 Heart rate 69 /min Dr. Martina Lal Work Phone: [facility] 05-18-2022 13:15-0400 Respiratory rate 20 /min Dr. Martina Lal Work Phone: [facility] 05-18-2022 13:15-0400 SaO2% (BldA) [Mass fraction] 93 % Dr. Martina Lal Work Phone: [facility] 05-18-2022 13:15-0400 Systolic blood pressure 165 mm[Hg] Dr. Martina Lal Work Phone: [facility] 05-18-2022 07:20-0400 Inhaled oxygen flow rate 2 L/min Dr. Martina Lal Work Phone: [facility] 05-15-2022 13:58-0400 Body weight 104.[address] Martina Lal Work Phone: [facility] 05-15-2022 08:36-0400 Body mass index (BMI) [Ratio] 43.6 kg/m2 Dr. Martina Lal Work Phone: [facility] 05-15-2022 01:52-0400 Diastolic blood pressure 37 mm[Hg] Dr. Martina Lal Work Phone: [facility] Work Phone: 05-15-2022 01:52-0400 Heart rate 56 /min Dr. Martina Lal Work Phone: [facility] Work Phone: 05-15-2022 01:52-0400 SaO2% (BldA) [Mass fraction] 94 % Dr. Martina Lal Work Phone: [facility] Work Phone: 05-15-2022 01:52-0400 Systolic blood pressure 158 mm[Hg] Dr. Martina Lal Work Phone: [facility] Work Phone: 05-15-2022 01:07-0400 Body temperature 98.9 [degF] Dr. Martina Lal Work Phone: [facility] Work Phone: 05-15-2022 01:07-0400 Inhaled oxygen flow rate 2 L/min Dr. Martina Lal Work Phone: [facility] Work Phone: 05-15-2022 01:07-0400 Respiratory rate 19 /min Dr. Martina Lal Work Phone: [facility] Work Phone: 05-14-2022 20:21-0400 Body height 154.[address] Martina Lal Work Phone: [facility] Work Phone: 05-14-2022 20:21-0400 Body mass index (BMI) [Ratio] 43.4 kg/m2 Dr. Martina Lal Work Phone: [facility] Work Phone: 05-14-2022 20:21-0400 Body weight 104.[address] Martina Lal Work Phone: [facility] Work Phone: 05-10-2022 11:40-0400 Body height [...] 98.6 [degF] Dr. Martina Lal Work Phone: [facility] 04-30-2022 16:03-0400 Diastolic blood pressure 41 mm[Hg] Dr. Martina Lal Work Phone: [facility] 04-30-2022 16:03-0400 Heart rate 56 /min Dr. Martina Lal Work Phone: [facility] 04-30-2022 16:03-0400 Respiratory rate 20 /min Dr. Martina Lal Work Phone: [facility] 04-30-2022 16:03-0400 SaO2% (BldA) [Mass fraction] 92 % Dr. Martina Lal Work Phone: [facility] 04-30-2022 16:03-0400 Systolic blood pressure 155 mm[Hg] Dr. Martina Lal Work Phone: [facility] 04-30-2022 11:45-0400 Inhaled oxygen flow rate 3 L/min Dr. Martina Lal Work Phone: [facility] 04-30-2022 08:00-0400 Body height 154.[address] Martina Lal Work Phone: [facility] Work Phone: 04-30-2022 08:00-0400 Body mass index (BMI) [Ratio] 42.9 kg/m2 Dr. Martina Lal Work Phone: [facility] 04-30-2022 08:00-0400 Body weight [address] Martina Lal Work Phone: [facility] 04-19-2022 11:51-0400 Body height 155.57 cm [...] 154.[address] Martina Lal Work Phone: [facility] Work Phone: 04-09-2022 15:37-0400 Body mass index (BMI) [Ratio] 44.1 kg/m2 Dr. Martina Lal Work Phone: [facility] Work Phone: 04-09-2022 15:37-0400 Body temperature 98.1 [degF] Dr. Martina Lal Work Phone: [facility] Work Phone: 04-09-2022 15:37-0400 Body weight 105.[address] Martina Lal Work Phone: [facility] Work Phone: 04-09-2022 15:37-0400 Diastolic blood pressure 62 mm[Hg] Dr. Martina Lal Work Phone: [facility] Work Phone: 04-09-2022 15:37-0400 Heart rate 72 /min Dr. Martina Lal Work Phone: [facility] Work Phone: 04-09-2022 15:37-0400 Respiratory rate 22 /min Dr. Martina Lal Work Phone: [facility] Work Phone: 04-09-2022 15:37-0400 SaO2% (BldA) [Mass fraction] 94 % Dr. Martina Lal Work Phone: [facility] Work Phone: 04-09-2022 15:37-0400 Systolic blood pressure 211 mm[Hg] Dr. Martina Lal Work Phone: [facility] Work Phone: 03-18-2022 10:22-0400 Body height 154.[address] Martina Lal Work Phone: [facility] Work Phone: 03-18-2022 10:22-0400 Body mass index (BMI) [Ratio] 44 kg/m2 Dr. Martina Lal Work Phone: [facility] Work Phone: 03-18-2022 10:22-0400 Body temperature 98 [degF] Dr. Martina Lal Work Phone: [facility] Work Phone: 03-18-2022 10:22-0400 Body weight 105.[address] Martina Lal Work Phone: [facility] Work Phone: 03-18-2022 10:22-0400 Diastolic blood pressure 59 mm[Hg] Dr. Martina Lal Work Phone: [facility] Work Phone: 03-18-2022 10:22-0400 Heart rate 61 /min Dr. Martina Lal Work Phone: [facility] Work Phone: 03-18-2022 10:22-0400 Respiratory rate 18 /min Dr. Martina Lal Work Phone: [facility] Work Phone: 03-18-2022 10:22-0400 SaO2% (BldA) [Mass fraction] 95 % Dr. Martina Lal Work Phone: [facility] Work Phone: 03-18-2022 10:22-0400 Systolic blood pressure 182 mm[Hg] Dr. Martina Lal Work Phone: [facility] Work Phone: 03-14-2022 12:59-0400 Body height 155.57 cm Keri Johnson [facility]; [facility] Work Phone: Comment on above: o2 went up to 92% pt c/o freezing cold f ingers from waiting room being cold she was not SOB or distressed 03-14-2022 12:59-0400 Body mass index (BMI) [Ratio] 44.42 kg/m2 Keri Johnson [facility]; [facility] Work Phone: Comment on above: o2 went up to 92% pt c/o freezing cold f ingers from waiting room being cold she was not SOB or distressed 03-14-2022 12:59-0400 Body surface area Derived from formula 2.04 m2 Keri Johnson [facility]; [facility] Work Phone: Comment on above: o2 went up to 92% pt c/o freezing cold f ingers from waiting room being cold she was not SOB or distressed 03-14-2022 12:59-0400 Body temperature 97.3 [degF] Keri Johnson [facility]; [facility] Work Phone: Comment on above: o2 went up to 92% pt c/o freezing cold f ingers from waiting room being cold she was not SOB or distressed 03-14-2022 12:59-0400 Body weight 107.5 kg Keri Johnson [facility]; [facility] Work Phone: Comment on above: o2 went up to 92% pt c/o freezing cold f ingers from waiting room being cold she was not SOB or distressed 03-14-2022 12:59-0400 Diastolic blood pressure 76 mm[Hg] Keri Johnson [facility]; [facility] Work Phone: Comment on above: Patient Position: Sitting; Cuff Location : Left Arm; Cuff Size: Standard o2 went up to 92% pt c/o freezing cold fingers from waiting room being cold she was not SOB or distressed 03-14-2022 12:59-0400 Heart rate 60 /min Keri Johnson [facility]; [facility] Work Phone: Comment on above: Pattern: Regular o2 went up to 92% pt c/o freezing cold fingers from waiting room being cold she was not SOB or distressed 03-14-2022 12:59-0400 Respiratory rate 20 /min Keri Johnson [facility]; [facility] Work Phone: Comment on above: Pattern: Unlabored o2 went up to 92% pt c/o freezing cold fingers from waiting room being cold she was not SOB or distressed 03-14-2022 12:59-0400 SaO2% (BldA) [Mass fraction] 88 % Keri Johnson [facility]; [facility] Work Phone: Comment on above: Room air o2 went up to 92% pt c/o freezing cold fingers from waiting room being cold she was not SOB or distressed 03-14-2022 12:59-0400 Systolic blood pressure 120 mm[Hg] Keri Johnson [facility]; [facility] Work Phone: Comment on above: Patient Position: Sitting; Cuff Location : Left Arm; Cuff Size: Standard o2 went up to 92% pt c/o freezing cold fingers from waiting room being cold she was not SOB or distressed 03-07-2022 12:11-0400 Body height 155.57 cm Keri Johnson [facility]; [facility] Work Phone: Comment on above: no vs taken as this is phone encounter d ue to covid 03-07-2022 12:11-0400 Body mass index (BMI) [Ratio] 44.42 kg/m2 Keri Johnson [facility]; [facility] Work Phone: Comment on above: no vs taken as this is phone encounter d ue to covid 03-07-2022 12:11-0400 Body surface area Derived from formula 2.04 m2 [facility] Work Phone: Comment on above: no vs taken as this is phone encounter d ue to covid 03-07-2022 12:11-0400 Body weight 107.5 kg Keri Duongius [employer] [facility]; [facility] Work Phone: Comment on above: no vs taken as this is phone encounter d ue to covid 02-18-2022 15:47-0400 Body height 155.57 cm Keri Johnson [facility]; [facility] Work Phone: 02-18-2022 15:47-0400 Body mass index (BMI) [Ratio] 44.42 kg/m2 Keri Johnson [facility]; [facility] Work Phone: 02-18-2022 15:47-0400 Body surface area Derived from formula 2.04 m2 Keri Johnson [facility]; [facility] Work Phone: 02-18-2022 15:47-0400 Body temperature 98.1 [degF] Keri Johnson CMA [facility]; [facility] Work Phone: Comment on above: Method: Infrared 02-18-2022 15:47-0400 Body weight 107.5 kg Keri Johnson [facility]; [facility] Work Phone: 02-18-2022 15:47-0400 Diastolic blood pressure 54 mm[Hg] Keri Johnson [facility]; [facility] Work Phone: Comment on above: Patient Position: Sitting; Cuff Location : Left Arm; Cuff Size: Standard 02-18-2022 15:47-0400 Heart rate 64 /min Keri Johnson [facility]; [facility] Work Phone: Comment on above: Pattern: Regular 02-18-2022 15:47-0400 Respiratory rate 18 /min Keri Johnson [employer] [facility]; [facility] Work Phone: Comment on above: Pattern: Unlabored 02-18-2022 15:47-0400 SaO2% (BldA) [Mass fraction] 92 % Keri Johnson [facility]; [facility] Work Phone: Comment on above: Room air 02-18-2022 15:47-0400 Systolic blood pressure 138 mm[Hg] Keri Johnson [facility]; [facility] Work Phone: Comment on above: Patient Position: Sitting; Cuff Location : Left Arm; Cuff Size: Standard 12-31-2021 11:02-0400 Body height 155.57 cm Keri Johnson CMA [facility]; [facility] Work Phone: 12-31-2021 11:02-0400 Body mass index (BMI) [Ratio] 44.42 kg/m2 Keri Johnson [facility]; [facility] Work Phone: 12-31-2021 11:02-0400 Body surface area Derived from formula 2.04 m2 Keri Johnson [facility]; [facility] Work Phone: 12-31-2021 11:02-0400 Body temperature 97.3 [degF] Keri Johnson CMA [facility]; [facility] Work Phone: Comment on above: Method: Temporal 12-31-2021 11:02-0400 Body weight 107.5 kg Keri Johnson [facility]; [facility] Work Phone: 12-31-2021 11:02-0400 Diastolic blood pressure 52 mm[Hg] Keri Johnson [facility]; [facility] Work Phone: Comment on above: Patient Position: Sitting; Cuff Location : Left Arm; Cuff Size: Standard 12-31-2021 11:02-0400 Heart rate 62 /min Keri Johnson [facility]; [facility] Work Phone: Comment on above: Pattern: Regular 12-31-2021 11:02-0400 Respiratory rate 16 /min Keri Johnson [facility]; [facility] Work Phone: Comment on above: Pattern: Unlabored 12-31-2021 11:02-0400 SaO2% (BldA) [Mass fraction] 92 % Keri Johnson [facility]; [facility] Work Phone: Comment on above: Room air 12-31-2021 11:02-0400 Systolic blood pressure 141 mm[Hg] Keri Johnson [facility]; [facility] Work Phone: Comment on above: Patient Position: Sitting; Cuff Location : Left Arm; Cuff Size: Standard 11-09-2021 10:12-0400 Body height 154.[address] Martina Lal Work Phone: [facility] Work Phone: 11-09-2021 10:12-0400 Body mass index (BMI) [Ratio] 44.7 kg/m2 Dr. Martina Lal Work Phone: [facility] Work Phone: 11-09-2021 10:12-0400 Body temperature 97.4 [degF] Dr. Martina Lal Work Phone: [facility] Work Phone: 11-09-2021 10:12-0400 Body weight 107.[address] Martina Lal Work Phone: [facility] Work Phone: 11-09-2021 10:12-0400 Diastolic blood pressure 69 mm[Hg] Dr. Martina Lal Work Phone: [facility] Work Phone: 11-09-2021 10:12-0400 Heart rate 54 /min Dr. Martina Lal Work Phone: [facility] Work Phone: 11-09-2021 10:12-0400 Respiratory rate 17 /min Dr. Martina Lal Work Phone: [facility] Work Phone: 11-09-2021 10:12-0400 SaO2% (BldA) [Mass fraction] 95 % Dr. Martina Lal Work Phone: [facility] Work Phone: 11-09-2021 10:12-0400 Systolic blood pressure 177 mm[Hg] Dr. Martina Lal Work Phone: [facility] Work Phone: 10-17-2021 13:49-0400 Body height [...] 08:54-0400 Body height 155.57 cm Turner Balderas NAUTICAL INSTRUMENT MECHANIC [facility] Work Phone: 10-10-2021 08:54-0400 Body mass index (BMI) [Ratio] 44.09 kg/m2 Turner Balderas NAUTICAL INSTRUMENT MECHANIC [facility] Work Phone: 10-10-2021 08:54-0400 Body surface area Derived from formula 2.03 m2 Turner Balderas NAUTICAL INSTRUMENT MECHANIC [facility] Work Phone: 10-10-2021 08:54-0400 Body weight 106.71 kg Turner Balderas NAUTICAL INSTRUMENT MECHANIC [facility] Work Phone: 10-10-2021 08:54-0400 Diastolic blood pressure 71 mm[Hg] Turner Balderas NAUTICAL INSTRUMENT MECHANIC [facility]; [facility] Work Phone: Comment on above: Patient Position: Sitting; Cuff Location : Left Arm; Cuff Size: Standard 10-10-2021 08:54-0400 Systolic blood pressure 197 mm[Hg] Turner Balderas NAUTICAL INSTRUMENT MECHANIC [facility]; [facility] Work [...] 14:05-0500 Body weight 108.58 kg Nelda Mallory NAUTICAL INSTRUMENT MECHANIC [facility]; [facility] Work [...] Systolic blood pressure 148 mm[Hg] Nelda Mallory NAUTICAL INSTRUMENT MECHANIC [facility]; [facility] Work Phone: Comment on above: Patient Position: Sitting; Cuff Location : Left Arm; Cuff Size: Standard 08-10-2021 08:16-0500 Body height 155.57 cm Keri [facility] Work Phone: 08-10-2021 08:16-0500 Body mass index (BMI) [Ratio] 43.86 kg/m2 Keri Johnson CMA [facility]; [facility] Work Phone: 08-10-2021 08:16-0500 Body surface area Derived from formula 2.03 m2 Keri Johnson JAVA DEVELOPER ANALYST [facility]; [facility] Work Phone: 08-10-2021 08:16-0500 Body temperature 97.1 [degF] Keri Johnson CMA [facility]; [facility] Work Phone: Comment on above: Method: Infrared 08-10-2021 08:16-0500 Body weight 106.15 kg Keri Johnson [facility] Work Phone: 08-10-2021 08:16-0500 Diastolic blood pressure 82 mm[Hg] Keri Johnson CMA [facility]; [facility] Work Phone: Comment on above: Patient Position: Sitting; Cuff Location : Left Arm; Cuff Size: Standard 08-10-2021 08:16-0500 Heart rate 57 /min Keri Johnson [facility] Work Phone: Comment on above: Pattern: Regular 08-10-2021 08:16-0500 Respiratory rate 16 /min Keri Johnson CMA [facility]; [facility] Work Phone: Comment on above: Pattern: Unlabored 08-10-2021 08:16-0500 SaO2% (BldA) [Mass fraction] 97 % Keri Johnson [facility] Work Phone: Comment on above: Room air 08-10-2021 08:16-0500 Systolic blood pressure 158 mm[Hg] Keri Johnson [facility] Work [...] 14:35-0400 Body temperature 97.1 [degF] Nelda Mallory NAUTICAL INSTRUMENT MECHANIC [facility]; [facility] Work Phone: Comment on above: Method: Temporal 04-04-2021 14:35-0400 Body weight 104.79 kg Nelda Mallory [place] [facility] Work Phone: 04-04-2021 14:35-0400 Diastolic blood pressure 70 mm[Hg] Nelda Mallory NAUTICAL INSTRUMENT MECHANIC [facility]; [facility] Work Phone: Comment on above: Patient Position: Sitting; Cuff Location : Left Arm; Cuff Size: Standard 04-04-2021 14:35-0400 Heart rate 59 /min Nelda Mallory NAUTICAL INSTRUMENT MECHANIC [facility]; [facility] Work Phone: Comment on above: Pattern: Regular 04-04-2021 14:35-0400 Respiratory rate 16 /min Nelda Mallory [place] [facility] Work Phone: Comment on above: Pattern: Unlabored 04-04-2021 14:35-0400 SaO2% (BldA) [Mass fraction] 96 % Nelda Mallory NAUTICAL INSTRUMENT MECHANIC [facility]; [facility] Work Phone: Comment on above: Room air 04-04-2021 14:35-0400 Systolic blood pressure 150 mm[Hg] Nelda Mallory [place] [facility] Work Phone: Comment on above: Patient Position: Sitting; Cuff Location : Left Arm; Cuff Size: Standard 03-20-2021 12:27-0400 Body height 155.57 cm Nelda Swanman NAUTICAL INSTRUMENT MECHANIC [facility]; [facility] Work [...] Systolic blood pressure 144 mm[Hg] Nelda Mallory NAUTICAL INSTRUMENT MECHANIC [facility]; [facility] Work [...] Mass Index) 42.98 kg/m2 Michael Michel MD [facility] Work Phone: 05-09-2017 14:14-0400 BP Diastolic 70 mm[Hg] Michael Michel MD [facility] Work Phone: 05-09-2017 14:14-0400 BP Systolic 150 mm[Hg] Michael Michel MD [facility] Work Phone: 05-09-2017 14:14-0400 Height 157.48 cm Michael Michel MD [facility] Work Phone: 05-09-2017 14:14-0400 Pulse (Heart Rate) 68 /min Michael Michel MD [facility] Work Phone: 05-09-2017 14:14-0400 Respiratory Rate 18 /min Michael Michel MD [facility] Work Phone: 05-09-2017 14:14-0400 Weight 106.6 kg Michael Michel MD [facility] Work Phone: Encounters Encounter Date Encounter Type Care Provider Facility Start: 01-12-2025 ambulatory Martina Lal Facilit y:[facility] Start: 01-12-2025 Non-patient / Non-visit Dr. Christine LAINEZ -[facility] Start: 01-12-2025 End: 01-12-[address] Martina Lal DO Work Phone: -Cardiovascular Services Start: 01-12-2025 End: 01-12-2025 Patient encounter procedure Kimberly WASHINGTON -Cardiovascular Services Work Phone: Start: 01-12-2025 End: 01-12-2025 ambulatory Martina Lal Facility:[facility] Start: 01-01-2025 End: 01-01-2025 Patient encounter procedure Neftaly W[place] -[facility] Work Phone: Start: 01-01-2025 End: 01-01-[address] Martina Lal DO Work Phone: [facility] Work Phone: Start: 12-24-2024 End: 12-24-[address] Brent Kelley MD -[facility] Start: 12-24-2024 End: 12-24-[address] Martina Lal DO Work Phone: [facility] Work Phone: Start: 12-24-2024 End: 12-24-2024 ambulatory Mackenzie Rajiv Facility:[facility] Start: 12-16-2024 End: 12-16-2024 Patient encounter procedure Kimberly WASHINGTON -[facility] Work Phone: Start: 12-16-2024 End: 12-16-[address] Martina Lal DO Work Phone: [facility] Work Phone: Start: 12-06-2024 End: 12-06-2024 Patient encounter procedure Kimberly W[place] -[facility] Work Phone: Start: 12-06-2024 End: 12-06-2024 ambulatory Martina Lal Facility:[facility] Start: 11-09-2024 Non-patient / Non-visit Dr. Willy jackson MD -[facility] Start: 11-09-2024 End: 11-09-[address] Martina Lal DO Work Phone: [facility] Work Phone: Start: 11-09-2024 End: 11-09-2024 Patient encounter procedure Louise WASHINGTON -Cardiovascular Services Work Phone: Start: 11-09-2024 End: 11-09-2024 ambulatory Martina Lal Facility:[facility] Start: 10-12-2024 End: 10-12-[address] Martina Lal DO Work Phone: [facility] Work Phone: Start: 10-12-2024 End: 10-12-[address] Martina Lal DO -Laboratory, [place] Work Phone: Start: 10-12-2024 End: 10-12-2024 ambulatory Dena Kwok Facility:[facility] Start: 10-07-2024 End: 10-07-[address] Martina Lal DO Work Phone: [facility] Work Phone: Start: 10-07-2024 End: 10-07-[address] Martina Lal DO -Outpatient Breast Imaging Work Phone: Start: 10-07-2024 End: 10-07-2024 ambulatory Martina Lal Facility:[facility] Start: 09-16-2024 ambulatory Martina Lal Facilit y:[facility] Start: 08-17-2024 End: 08-17-2024 Patient encounter procedure Kimberly W[place] -[facility] Work Phone: Start: 08-17-2024 End: 08-17-2024 ambulatory Martina Lal Facility:[facility] Start: 08-09-2024 End: 08-09-[address] Willy Trimble MD -[facility] Work Phone: Start: 08-09-2024 End: 08-09-2024 ambulatory Martina Lal Facility:[facility] Start: 07-01-2024 End: 07-01-2024 ambulatory Tamra Francis Facility:[facility] Start: 07-01-2024 End: 07-01-[address] Tamra Francis MD -Physical Therapy Work Phone: Start: 06-01-2024 ambulatory Martina Lal Facilit y:[facility] Start: 04-30-2024 ambulatory Willy Trimble Facility:[facility] Start: 04-30-2024 End: 04-30-2024 ambulatory Willy Keyey Facility:[facility] Start: 04-28-2024 End: 04-28-2024 ambulatory Martina Lal Facility:[facility] Start: 03-19-2024 End: 03-19-2024 ambulatory Martina Lal Facility:[facility] Start: 03-17-2024 End: 03-17-2024 ambulatory Martina Lal Facility:[facility] Start: 03-15-2024 End: 03-15-2024 ambulatory Dena Rissa Facility:[facility] Start: 03-12-2024 End: 03-12-2024 Emergency department patient visit Tavon Dennis Facility:[facility] Start: 03-08-2024 End: 03-08-2024 ambulatory Tamra Francis Facility:[facility] Start: 11-14-2023 End: 11-14-[address] Martina Lal Work Phone: [facility] Work Phone: Start: 11-14-2023 End: 11-14-[address] Martina Lal Work Phone: [facility]-Cardiovascular Services Work Phone: Start: 11-13-2023 End: 11-13-[address] Martina Lal Work Phone: [facility] Work Phone: Start: 11-13-2023 End: 11-13-[address] Martina Lal Work Phone: [facility]-Pulmonary Services/Neurology Work Phone: Start: 11-12-2023 End: 11-12-[address] Martina Lal Work Phone: [facility] Work Phone: Start: 11-12-2023 End: 11-12-[address] Martina Lal Work Phone: [facility] Work Phone: Start: 10-24-2023 End: 10-24-[address] Martina Lal Work Phone: [facility] Work Phone: Start: 10-24-2023 End: 10-24-[address] Martina Lal Work Phone: [facility] Work Phone: Start: 10-16-2023 End: 10-16-[address] Martina Lal Work Phone: [facility] Work Phone: Start: 09-15-2023 End: 09-15-[address] Martina Lal Work Phone: [facility] Work Phone: Start: 09-15-2023 End: 09-15-[address] Martina Lal Work Phone: [facility] Work Phone: Start: 09-10-2023 End: 09-10-2023 Emergency department patient visit Dr. Martina Lal Work Phone: [facility]-Emergency Department Work Phone: Start: 09-05-2023 Non-patient / Non-visit Dr. Pascual Lal Work Phone: [facility] Start: 09-05-2023 End: 09-05-[address] Martina Lal Work Phone: [facility] Work Phone: Start: 09-05-2023 End: 09-05-[address] [facility] Start: 09-03-2023 End: 09-03-[address] Martina Lal Work Phone: [facility] Work Phone: Start: 09-03-2023 End: 09-03-[address] Martina Lal Work Phone: [facility], [facility] Work Phone: Start: 07-10-2023 End: 07-10-[address] Martina Lal Work Phone: [facility] Work Phone: Start: 07-10-2023 End: 07-10-[address] Martina Lal Work Phone: [facility] Work Phone: Start: 06-03-2023 End: 06-03-[address] Martina Lal Work Phone: [facility]-Pulmonary Medicine [facility] Work Phone: Start: 05-07-2023 End: 05-07-[address] Martina Lal Work Phone: [facility] Work Phone: Start: 05-07-2023 End: 05-07-[address] Maritna Lal Work Phone: [facility]-Cat Scan, [facility] Work Phone: Start: 04-08-2023 End: 04-08-[address] Martina Lal Work Phone: [facility] Work Phone: Start: 03-13-2023 Non-patient / Non-visit Dr. Pascual Lal Work Phone: [facility] Work Phone: Start: 03-11-2023 Non-patient / Non-visit [facility] Start: 03-11-2023 End: 03-11-[address] Martina Lal Work Phone: [facility] Work Phone: Start: 03-11-2023 End: 03-11-[address] [facility] Work [facility] Start: 03-03-2023 End: 03-03-[address] Martina Lal Work Phone: [facility] Work Phone: Start: 02-10-2023 End: 02-17-[address] Martina Lal Work Phone: [facility] Work Phone: Start: 02-10-2023 End: 02-17-[address] Martina Lal Work Phone: [facility] Work Phone: Start: 01-31-2023 End: 02-02-2023 Office outpatient visit 10 minutes Martina Lal DO Work Phone: [facility] Start: 01-31-2023 Review Martina patel DO Work Phone: [facility] Start: 01-10-2023 End: 01-10-[address] Martina Lal Work Phone: [facility] Work Phone: Start: 01-10-2023 End: 01-10-[address] Martina Lal Work Phone: [facility] Work Phone: Start: 12-02-2022 End: 12-02-[address] Martina Lal Work Phone: [facility]-Pulmonary Medicine [facility] Work Phone: Start: 11-11-2022 End: 11-17-[address] Martina Lal Work Phone: [facility] Work Phone: Start: 11-11-2022 End: 11-17-[address] Martina Lal Work Phone: [facility] Start: 10-10-2022 End: 10-18-[address] Martina Lal Work Phone: [facility] Work Phone: Start: 10-10-2022 End: 10-18-[address] Martina Lal Work Phone: [facility] Start: 09-12-2022 End: 09-12-[address] Martina Lal Work Phone: [facility] Work Phone: Start: 09-12-2022 End: 09-12-[address] Martina Lal Work Phone: [facility] Start: 09-12-2022 End: 09-12-2022 Dr. Martina Lal Work Phone: [facility] Start: 09-10-2022 End: 09-10-[address] [facility] Start: 09-10-2022 End: 09-10-2022 Dr. Martina Lal [facility] Start: 09-04-2022 End: 09-04-[address] Martina Lal Work Phone: [facility] Start: 09-04-2022 End: 09-04-2022 Dr. Martina Lal Work Phone: [facility] Start: 09-02-2022 End: 09-02-[address] Martina Lal Work Phone: [facility] Endocrinology Start: 09-02-2022 End: 09-02-2022 Dr. Martina Lal Work Phone: [facility] Endocrinology Start: 08-29-2022 End: 08-29-2022 Office outpatient visit 25 minutes Martina aLl DO Work Phone: [facility] Start: 08-29-2022 Review Martina patel DO Work Phone: [facility] Start: 08-23-2022 ambulatory Martina Lal DO Comp [facility] Start: 08-13-2022 End: 08-13-2022 Lab Order Martina Lal DO Work Phone: [facility] Start: 08-08-2022 End: 08-08-[address] Martina Lal Work Phone: [facility] Work Phone: Start: 08-08-2022 End: 08-08-[address] Martina Lal Work Phone: [facility]-Laboratory Start: 08-08-2022 End: 08-08-2022 Dr. Martina Lal Work Phone: [facility]-Laboratory Start: 08-07-2022 End: 08-07-2022 Admission to establishment Martina Lal DO Work Phone: [facility] Start: 08-01-2022 End: 08-01-[address] Martina Lal Work Phone: [facility] Work Phone: Start: 08-01-2022 End: 08-01-[address] [facility] Start: 08-01-2022 End: 08-01-2022 Dr. Mart[facility] Start: 07-31-2022 End: 07-31-2022 Patient encounter procedure Martina Lal DO Work Phone: [facility] Start: 07-25-2022 Review Martina patel DO Work Phone: [facility] Start: 07-25-2022 End: 07-25-2022 Transitional care manage srvc 14 day discharge Martina Lal DO Work Phone: [facility] Internal Medicine Start: 07-23-2022 End: 08-20-[address] Martina Lal Work Phone: [facility] Work Phone: Start: 07-23-2022 End: 08-20-[address] Martina Lal Work Phone: [facility] Start: 07-23-2022 End: 08-20-2022 Dr. Martina Lal Work Phone: [facility] Start: 07-18-2022 End: 07-18-[address] Martina Lal Work Phone: [facility] Start: 07-18-2022 End: 07-18-2022 Dr. Martina [facility] Start: 07-17-2022 Non-patient / Non-visit Dr. Pascual Lal Work Phone: [facility] Inpatient Physicians Start: 07-17-2022 Dr. Martina perera Work Phone: [facility] Phys[facility] Start: 07-16-2022 Non-patient / Non-visit Dr. Pascual Lal Work Phone: [facility] Start: 07-16-2022 Dr. Martina perera Work Phone: [facility] Start: 07-16-2022 End: 07-17-2022 Evaluation and management of inpatient Dr. Martina Lal Work Phone: [facility] Surgical 3 Start: 07-16-2022 End: 07-17-2022 Dr. Martina Lal Work Phone: [facility] 3 Start: 07-16-2022 End: 07-16-2022 Non-patient / Non-visit Dr. Martina Lal Work Phone: [facility] Start: 07-16-2022 End: 07-16-2022 Dr. Martina Lal Work Phone: [facility] Start: 07-15-2022 Non-patient / Non-visit Dr. Pascual Lal Work Phone: [facility] Phys[facility] Start: 07-15-2022 Dr. Martina perera Work Phone: [facility] Start: 07-14-2022 Non-patient / Non-visit Dr. Pascual Lal Work Phone: [facility] Start: 07-14-2022 Dr. Martina perera Work Phone: [facility] Start: 07-13-2022 Evaluation and management of inpatient Dr. Martina Lal Work Phone: [facility] Surgical 3 Start: 07-13-2022 Non-patient / Non-visit Dr. Pascual Lal Work Phone: [facility] Inpatient Physicians Start: 07-13-[address] Prisca Lal Work Phone: [facility] Work Phone: Start: 07-13-2022 Dr. Martina perera Work Phone: [facility] Physicians Start: 07-10-2022 Rob patel DO Work Phone: [facility] Start: 07-10-2022 End: 07-10-2022 Office outpatient visit 15 minutes Martina Lal DO Work Phone: [facility] Start: 07-10-2022 End: 07-10-[address] Martina Lal Work Phone: [facility] Heart [facility] Start: 07-10-2022 End: 07-10-2022 Dr. Martina Lal Work Phone: [facility] Heart [facility] Start: 07-07-2022 Non-patient / Non-visit Dr. Pascual Lal Work Phone: [facility] Phys[facility] Start: 07-07-2022 Dr. Martina perera Work Phone: [facility] Start: 07-06-2022 Non-patient / Non-visit Dr. Pascual Lal Work Phone: [facility] Start: 07-06-2022 Dr. Martina perera Work Phone: [facility] Start: 07-05-2022 Non-patient / Non-visit Dr. Pascual Lal Work Phone: [facility] Start: 07-05-2022 Dr. Martina perera Work Phone: [facility] Start: 07-04-2022 Non-patient / Non-visit Dr. Pascual Lal Work Phone: [facility] Start: 07-04-2022 Dr. Martina perera Work Phone: [facility] Start: 07-04-2022 Non-patient / Non-visit Dr. Pascual Lal Work Phone: [facility] Start: 07-04-2022 Dr. Martina perera Work Phone: [facility] Start: 07-03-2022 End: 07-07-2022 Evaluation and management of inpatient Dr. Martina Lal Work Phone: [facility] Start: 07-03-2022 End: 07-03-2022 Non-patient / Non-visit Dr. Martina Lal Work Phone: [facility] Start: 07-03-2022 End: 07-07-2022 Dr. Martina Lal Work Phone: [facility] Start: 07-02-2022 Rob patel DO Work Phone: [facility] Start: 07-02-2022 Evaluation and management of inpatient Dr. Martina Lal Work Phone: [facility] Start: 07-02-2022 Non-patient / Non-visit Dr. Pascual Lal Work Phone: [facility] Phys[facility] Start: 07-02-[address] Prisca Lal Work Phone: [facility] Work Phone: Start: 07-02-2022 Dr. Martina perera Work Phone: [facility] Physicians Start: 06-18-2022 End: 06-18-[address] Martina Lal Work Phone: [facility] Start: 06-18-2022 End: 06-18-2022 Dr. Martina Lal Work Phone: [facility] Start: 06-17-2022 End: 06-19-[address] Martina Lal Work Phone: [facility] Start: 06-17-2022 End: 06-19-2022 Dr. Martina Lal Work Phone: [facility] Start: 06-12-2022 End: 06-12-2022 Phone Encounter Martina Lal DO Work Phone: [facility] Start: 06-11-2022 End: 06-11-[address] Martina Lal Work Phone: [facility] Start: 06-11-2022 End: 06-11-2022 Dr. Martina Lal Work Phone: [facility] Start: 06-10-2022 Review Martina patel DO Work Phone: [facility] Start: 06-10-2022 End: 06-10-2022 Office outpatient visit 40 minutes Martina Lal DO Work Phone: [facility] Start: 06-08-2022 End: 06-19-[address] Martina Lal Work Phone: [facility] Work Phone: Start: 06-08-2022 End: 06-19-[address] Martina Lal Work Phone: [facility]-Laboratory, Specimen Start: 06-08-[address] Pito Lal Work Phone: [facility]-Labor[facility], Specimen Start: 06-08-2022 End: 06-19-2022 Dr. Martina Lal Work Phone: [facility]-Laboratory, Specimen Start: 06-07-2022 End: 06-07-2022 Phone Encounter Martina Lal DO Work Phone: [facility] Start: 06-07-2022 End: 06-07-2022 Phone Encounter Martina Lal DO Work Phone: [facility] Start: 06-06-2022 Non-patient / Non-visit Dr. Pascual Lal Work Phone: [facility] Start: 06-06-2022 End: 06-06-[address] Martina Lal Work Phone: [facility] Work Phone: Start: 06-06-2022 End: 06-06-[address] [facility] Start: 06-06-2022 End: 06-06-2022 Dr. Martina Lal Work Phone: [facility] Start: 06-04-2022 End: 06-04-[address] Martina Lal Work Phone: [facility] Heart [facility] Start: 06-04-2022 End: 06-04-2022 Dr. Martina Lal Work Phone: [facility] Heart [facility] Start: 06-04-2022 Non-patient / Non-visit Dr. Pascual Lal Work Phone: [facility] Start: 06-04-2022 Dr. Martina perera Work Phone: [facility] Start: 05-30-2022 Non-patient / Non-visit Dr. Pascual Lal Work Phone: [facility] Start: 05-30-2022 Dr. Martina perera Work Phone: [facility] Start: 05-27-2022 Non-patient / Non-visit Dr. Pascual Lal Work Phone: [facility] Start: 05-27-2022 Dr. Martina perera Work Phone: [facility] Start: 05-23-2022 End: 06-06-2022 Evaluation and management of inpatient [facility] Martina Lal [facility] Start: 05-23-2022 End: 06-06-2022 Dr. Mart[facility] Start: 05-23-2022 Non-patient / Non-visit Dr. Pascual Lal Work Phone: [facility] Inpatient Physicians Start: 05-23-2022 Dr. Martina perera Work Phone: [facility] Start: 05-23-2022 Non-patient / Non-visit Dr. Pascual Lal Work Phone: [facility] Start: 05-23-2022 Dr. Martina perera Work Phone: [facility] Start: 05-22-2022 Non-patient / Non-visit Dr. Pascual Lal Work Phone: [facility] Start: 05-22-2022 Dr. Martina perera Work Phone: [facility] Start: 05-22-2022 Non-patient / Non-visit Dr. Pascual Lal Work Phone: [facility] Start: 05-22-2022 Dr. Martina perera Work Phone: [facility] Start: 05-21-2022 Non-patient / Non-visit Dr. Pascual Lal Work Phone: [facility] Start: 05-21-2022 Dr. Martina perera Work Phone: [facility] Start: 05-21-2022 Non-patient / Non-visit Dr. Pascual Lal Work Phone: [facility] Start: 05-21-2022 Dr. Martina perera Work Phone: [facility] Start: 05-20-2022 Non-patient / Non-visit Dr. Pascual Lal Work Phone: [facility] Start: 05-20-2022 Dr. Martina perera Work Phone: [facility] Start: 05-20-2022 Non-patient / Non-visit Dr. Pascual Lal Work Phone: [facility] Start: 05-20-2022 End: 05-23-2022 Dr. [facility] Start: 05-20-2022 End: 05-23-2022 Evaluation and management of inpatient [facility]. Martina Lal [facility] Start: 05-18-2022 Non-patient / Non-visit Dr. Pascual Lal Work Phone: [facility] Start: 05-18-2022 Dr. Martina perera Work Phone: [facility] Start: 05-18-2022 Non-patient / Non-visit Dr. Pascual Lal Work Phone: [facility] Start: 05-18-2022 Dr. Martina perera Work Phone: [facility] Start: 05-17-2022 Non-patient / Non-visit Dr. Pascual Lal Work Phone: [facility] Start: 05-17-2022 Dr. Martina perera Work Phone: [facility] Start: 05-17-2022 Non-patient / Non-visit Dr. Pascual Lal Work Phone: [facility] Start: 05-17-2022 Dr. Martina perera Work Phone: [facility] Start: 05-16-2022 Non-patient / Non-visit Dr. Pascual Lal Work Phone: [facility] Start: 05-16-2022 Dr. Martina perera Work Phone: [facility] Start: 05-16-2022 Non-patient / Non-visit Dr. Pascual Lal Work Phone: [facility] Start: 05-16-2022 Dr. Martina perera Work Phone: [facility] Start: 05-15-2022 End: 05-18-2022 Evaluation and management of inpatient Dr. Martina Lal Work Phone: [facility] 3 Start: 05-15-2022 Non-patient / Non-visit Dr. Pascual Lal Work Phone: [facility] Start: 05-15-2022 End: 05-18-2022 Dr. Martina Lal Work Phone: [facility] Start: 05-13-2022 End: 05-13-[address] Martina Lal Work Phone: [facility] Start: 05-13-2022 End: 05-13-2022 Dr. Martina Lal Work Phone: [facility] Start: 05-10-2022 Review Martina patel DO Work Phone: [facility] Start: 05-10-2022 End: 05-10-2022 Office outpatient visit 15 minutes Martina Lal DO Work Phone: [facility] Start: 05-09-2022 End: 05-09-2022 Annotation/Addendum Martina Lal DO Work Phone: [facility] Start: 05-08-2022 End: 05-08-[address] Martina Lal Work Phone: [facility] Start: 05-08-2022 End: 05-08-2022 Dr. Martina Lal Work Phone: [facility] Start: 05-06-2022 End: 05-06-[address] Martina Lal Work Phone: [facility] Work Phone: Start: 05-06-2022 End: 05-06-[address] Martina Lal Work Phone: [facility] Start: 05-06-2022 End: 05-06-2022 Dr. Martina Lal Work Phone: [facility] Start: 04-30-2022 Non-patient / Non-visit Dr. Pascual Lal Work Phone: [facility] Start: 04-30-2022 End: 04-30-2022 Admission to same day surgery center Dr[facility] Martina [facility] Start: 04-30-2022 End: 04-30-2022 Dr. Martina [facility] Start: 04-25-2022 End: 04-25-[address] Martina Lal Work Phone: [facility] Work Phone: Start: 04-25-2022 End: 04-25-[address] Martina Lal Work Phone: [facility]-Outpatient Bone Densitometry Start: 04-25-2022 End: 04-25-2022 Dr. Martina Lal Work Phone: [facility]-Outpatient Bone Densitometry Start: 04-25-2022 Non-patient / Non-visit Dr. Pascual Lal Work Phone: [facility] Start: 04-25-2022 Dr. Martina perera Work Phone: [facility] Start: 04-19-2022 End: 04-19-2022 Office outpatient visit 15 minutes Martina Lal DO Work Phone: [facility] Start: 04-18-2022 End: 04-18-2022 Annotation/Addendum Martina Lal DO Work Phone: [facility] Start: 04-15-2022 End: 04-15-2022 Patient encounter procedure Martina Lal DO Work Phone: [facility] Start: 04-15-2022 End: 04-15-[address] Martina Lal Work Phone: [facility] Start: 04-15-2022 End: 04-15-2022 Dr. Martina Lal Work Phone: [facility] Start: 04-09-2022 End: 04-09-[address] Martina Lal Work Phone: [facility] Start: 04-09-2022 End: 04-09-[address] Martina Lal Work Phone: [facility] Work Phone: Start: 04-09-2022 End: 04-09-[address] Martina Lal Work Phone: [facility]-Laboratory, Specimen Start: 03-29-2022 End: 03-29-[address] Martina Lal Work Phone: [facility] Work Phone: Start: 03-29-2022 End: 03-29-[address] Martina Lal Work Phone: [facility]-Outpatient Pavilion Ultrasound Start: 03-27-2022 End: 03-27-[address] Martina Lal Work Phone: [facility] Work Phone: Start: 03-27-2022 End: 03-27-[address] Martina Lal Work Phone: [facility]-Outpatient Breast Imaging Start: 03-20-2022 End: 03-20-2022 Annotation/Addendum Martina Lal DO Work Phone: [facility] Start: 03-18-2022 End: 03-18-[address] Martina Lal Work Phone: [facility] Work Phone: Start: 03-18-2022 End: 03-18-[address] Martina Lal Work Phone: [facility]-Radiology, [facility] Start: 03-18-2022 End: 03-18-[address] Martina Lal Work Phone: [facility] Start: 03-14-2022 End: 03-15-2022 Office [...] encounter procedure Dr. Martina Lal Work Phone: [facility] Start: 02-22-2022 Review Martina Thorpeo n DO Work Phone: [facility] Start: 02-18-2022 End: 02-18-[address] Martina Lal Work Phone: [facility] Start: 02-18-2022 End: 02-18-2022 Office [...] Dr. Martina Lal Work Phone: [facility]-Pulmonary Medicine [facility] Start: 10-25-2021 End: 10-25-2021 Phone Encounter Martina Lukasz DO Work Phone: [facility] Start: 10-23-2021 End: 10-23-[address] Martina Lal Work Phone: [facility]-Sleep Lab Start: 10-17-2021 End: 10-17-2021 Office outpatient visit 25 minutes Martina Lukasz DO Work Phone: [facility] Start: 10-12-2021 Non-patient / Non-visit Dr. Pascual Lal Work Phone: [facility] Start: 10-12-2021 End: 10-12-[address] Martina Lal Work Phone: [facility]-Cardiovascular Services Start: 10-10-2021 End: 10-10-2021 Office [...] Dr. Martina Lal Work Phone: [facility]-Laboratory, Specimen Start: 08-10-2021 End: 08-10-2021 Office [...] Office outpatient visit 15 minutes Nicolasa Aravind AUT[employer] CLUTCH SPECIALIST Work Phone: [facility] Start: 12-13-2020 Review Nicolasa Nazario [employer] SPECIALIST Work Phone: [facility] Start: 09-17-2020 End: 09-17-2020 Annotation/Addendum Nicolasa Nazario [facility] Start: 09-15-2020 End: 09-15-2020 Office outpatient new 45 minutes Nicolasa Nazario [facility] Start: 01-27-2018 End: 01-27-2018 Ambulatory CELIO DPM [facility] Procedures Date Procedure Procedure Detail [...] 10-12-2024 Vitamin D, 25-hydroxy measurement Dr. Martina Lla DO Work Phone: Comment on above: Vitamin [...] 04-14-2023 MR/BMS.BVS Procedure Note: See Note; NOTES: [facility] Vascular Surgery [address] [place], [place] [address] OFFICE VISIT Date of Service: 04/08/23 MR#: [id number] Acct: [id number] Name: DEBBIE MIRELES Rep #: [id number] : 1935 Provider: Louise Clements rn, PA [...] 81 mg chewable tablet 81 mg PO .[facility] 03/03/23 [History Confirmed 04/08/23] clonidine 0.1 mg/24 hr weekly transdermal patch ([id number]) 1 patch transdermal QWEEK #4 ea 03/03/23 [...] Duplex Ultrasound Procedure Note: See Note; NOTES: [facility] Cardi[facility] Services [address] [place] [address] Carotid Duplex Ultrasound 03/11/23 1232 MR#: [id number] Acct: [id number] Name: DEBBIE MIRELES Rep #: [id number] : 1935 87 From: Willy Trimble MD Attending Dr: Dr. Angely Carrizales MD Status: REG [facility] Ordering Dr: Angely Carrizales MD Date: 03/11/23 Location: [facility] Sex: F C Admitted: Reason For [...] the left vertebral artery. Procedure Carotid Duplex 08700. This is a Carotid Duplex examination using [...] Date Dictated: 03/11/23 1232 Date Transcribed: 03/11/231724 High Pressure Cleaner: Signed Martina Lal DO Work Phone: Start: 03-03-2023 End: 03-03-2023 Cardiology Visit Report Procedure Note: See Note; NOTES: [facility] [address] [place] [address] OFFICE VISIT Date of Service: 03/03/23 MR#: [id number] Acct: [id number] Name: DEBBIE MIRELES Rep #: [id number] : 1935 Provider: Dr. Angely Carrizales MD Age/Sex: 87/F Location: [facility] Status: Signed [facility] History of Present Illness Details: This patient [...] Reasons: 6 m fu PREV PFM PT Sales Support Technician Required: No Accompanied by: Self Is patient [...] 81 mg chewable tablet 81 mg PO .[facility] 03/03/23 [History Confirmed 03/03/23] grape [...] Visit Report Procedure Note: See Note; NOTES: [facility] Pulmonary Medicine of [address] [place] [address] OFFICE VISIT Date of Service: 12/02/22 MR#: [id number] Acct: [id number] Name: DEBBIE MIRELES Rep #: [id number] : 1935 Provider: Dr. Tk Varela MD Age/Sex: 87/F Location: [facility] Status: Signed Assessment and Plan Assessment and [...] therapy. Plan Details Follow Up: 6 Months ([facility]) HPI 3 M FU Details: [...] 3 M FU Chief Complaint: adrenal mass Sales Support Technician Required: No DME Vendor: pap-- [employer] Accompanied [...] 09/04/22 [History Confirmed 12/02/22] PFSH Medical History (Reviewed 09/10/22 @ 10:27 by Zelda Mcdaniels HEAD OF SALES AND MARKETING, HEAD OF SALES AND MARKETING-C) Arthritis Bilateral carotid artery stenosis Bilateral extracranial [...] (Reviewed 09/10/22 @ 10:27 by Zelda Mcdaniels HEAD OF SALES AND MARKETING, HEAD OF SALES AND MARKETING-C) History of cataract extraction History of cholecystectomy History of colonoscopy History of hysterectomy History of right breast biopsy ( 03/2022) History of umbilical hernia repair Family History (Reviewed 09/10/22 @ 10:27 by Zelda Mcdaniels HEAD OF SALES AND MARKETING, HEAD OF SALES AND MARKETING-C) Brother Pancreatic cancer Diabetes Heart disease Lung cancer Hypertension Colon cancer Mother Hypertension Brother No problems noted. 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 [place] [address] OFFICE VISIT Date of Service: 09/10/22 MR#: [id number] Acct: [id number] Name: DEBBIE MIRELES Rep #: [id number] : 1935 Provider: ERIKA Mcdaniels Age/Sex: 87/F Location: [facility] Status: Signed Assessment and Plan Assessment and [...] Visit Reasons: CPAP Chief Complaint: adrenal mass Sales Support Technician Required: No DME Vendor: [employer] Accompanied by: [...] 30 min apart 09/04/22 [History Confirmed 09/10/22] [facility] Medical History (Reviewed 09/10/22 @ 10:27 by Zelda Mcdaniels HEAD OF SALES AND MARKETING, HEAD OF SALES AND MARKETING-C) Arthritis Bilateral carotid artery stenosis Bilateral extracranial [...] (Reviewed 09/10/22 @ 10:27 by Zelda Mcdaniels HEAD OF SALES AND MARKETING, HEAD OF SALES AND MARKETING-C) History of cataract extraction History of cholecystectomy History of colonoscopy History of hysterectomy History of right breast biopsy ( 03/2022) History of umbilical hernia repair Family History (Reviewed 09/10/22 @ 10:27 by Zelda Mcdaniels HEAD OF SALES AND MARKETING, HEAD OF SALES AND MARKETING-C) Brother Pancreatic cancer Diabetes Heart disease Lung cancer Hypertension Colon cancer Mother Hypertension Brother No problems noted. 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 [address] [place] [address] OFFICE VISIT Date of Service: 09/04/22 MR#: [id number] Acct: [id number] Name: DEBBIE MIRLEES Rep #: [id number] : 1935 Provider: ERIKA perez Age/Sex: 87/F Location: [facility] Status: Signed HPI HPI History of Present [...] air Intake Visit Reasons: 3 M FU Sales Support Technician Required: No Is patient in pain?: No [...] 09/04/22 [History Confirmed 09/04/22] PFSH Medical History (Reviewed 09/05/22 @ 17:36 by Rama Camara HEAD OF SALES AND MARKETING, HEAD OF SALES AND MARKETING-C) Arthritis Bilateral carotid artery stenosis Bilateral extracranial [...] (Reviewed 09/05/22 @ 17:36 by Rama Camara HEAD OF SALES AND MARKETING, HEAD OF SALES AND MARKETING-C) History of cataract extraction History of cholecystectomy [...] See Note; NOTES: [facility] [address] [place] [address] OFFICE VISIT Date of Service: 09/02/22 MR#: [id number] Acct: [id number] Name: DEBBIE MIRELES Rep #: [id number] : 1935 Provider: Rodríguez Jiang Age/Sex: 87/F [place] [facility] [place]: Signed Intake Vital Signs 07/02/22 12:59 [...] Visit Reasons: Adrenal Chief Complaint: adrenal mass Sales Support Technician Required: No Accompanied by: Daughter Is patient in pain?: No Allergies morphine Adverse Reaction (Intermediate, Verified 09/02/22 13:27) mental status change meperidine HCl [From Demerol] Adverse Reaction (Mild, Verified 09/02/22 13:27) mental status change [facility] Medical History Arthritis Bilateral carotid artery stenosis [...] obese Orientation: alert, awake and oriented x3 HENAZ Head: normal to inspection Nose: external nose [...] Visit Report Procedure Note: See Note; NOTES: [facility] Medicine of [place] [address] [place] [address] OFFICE VISIT Date of Service: 07/18/22 MR#: [id number] Acct: [id number] Name: DEBBIE MIRELES Rep #: [id number] : 1935 Provider: ERIKA Mcdaniels Age/Sex: 86/F Location: [facility] Status: Signed Assessment and Plan Assessment and [...] Visit Reasons: ABDI Chief Complaint: dizzy, weak Sales Support Technician Required: No Accompanied by: Daughter Is patient [...] DAILY #30 tabs 07/17/22 [Rx Confirmed 07/18/22] [facility] Medical History (Reviewed 07/18/22 @ 09:00 by Zelda Mcdaniels HEAD OF SALES AND MARKETING, HEAD OF SALES AND MARKETING-C) Arthritis Bilateral carotid artery stenosis Bilateral extracranial [...] (Reviewed 07/18/22 @ 09:00 by Zelda Mcdaniels HEAD OF SALES AND MARKETING, HEAD OF SALES AND MARKETING-C) History of cataract extraction History of cholecystectomy History of colonoscopy History of hysterectomy History of right breast biopsy ( 03/2022) History of umbilical hernia repair Family History (Reviewed 07/18/22 @ 09:00 by Zelda Mcdaniels HEAD OF SALES AND MARKETING, HEAD OF SALES AND MARKETING-C) Brother Pancreatic cancer Diabetes Heart disease Lung cancer Hypertension Colon cancer Mother Hypertension Brother No problems noted. 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 Martina Lal, DO Martina Lal DO Work Phone: Start: 07-13-2022 End: 07-13-2022 Chest 1 View (Portable) Procedure Note: See Note; NOTES: [facility] Imaging Services [address] [place] [id number] Chest 1 View (Portable) MR#: [id number] Acct: [id number] Name: DEBBIE MIRELES Rep #: [id number] : 1935 F 86 From: Justyn Chi PCP: Dr. Martina Lal, Status: REG ER Study: Chest 1 View (Portable) Date of Exam: 07/13/22 Exam# [id number] Ordering Dr: Anthony Davila MD INDICATION: weakness [...] Anthony Davila MD; Dr. Martina Lal DO High Pressure Cleaner: Signed Martina Lal DO Work Phone: Start: 07-13-2022 Plain chest X-ray Dr. Martina Lal Work Phone: Start: 07-13-2022 End: 07-14-2022 Emergency Department Summary Procedure Note: See Note; NOTES: [facility] Medical Records Department [address] [place] [address] Emergency Department Summary 07/13/22 MR#: [id number] Acct: [id number] Name: DEBBIE MIRELES Rep #: [id number] : 1935 86 From: Anthony Davila MD [...] she just feels so weak and nauseated. [facility] Medical History Abnormal cardiac enzyme level [...] % (Auto) 51.9 Lymph % (Auto) 36.5 Union % (Auto) 7.9 Eos % (Auto) 2.7 [...] Clarity Clear Urine pH 7.0 Ur Specific Neon 1.005 Urine Protein Negative Urine Glucose (UA) [...] (Auto) Neut % (Auto) Lymph % (Auto) Union % (Auto) Eos % (Auto) Baso % [...] Color Urine Clarity Urine pH Ur Specific Neon Urine Protein Urine Glucose (UA) Urine Ketones [...] Prerenal azotemia Disposition Disposition: Acute Care Hospital [facility] What to do if you have Problems For any increased pain, shortness of breath, bleeding, nausea or vomiting, chest pain, or any unexpected problems, contact your Primary Care Provider. Call [facility] ([phone]) or report to the closest Emergency Room. Call 911 if necessary. 07/14/22 0026 <Electronically signed by Anthony Davila MD> Cosigner Signature (if applicable): CC: Dr. Martina Lal, DO Signed Martina Lal DO Work Phone: Start: 07-13-2022 End: 07-13-2022 Abdomen/Pelvis without Cont Procedure Note: See Note; NOTES: [facility] Imaging Services [address] [place] [address] Abdomen/Pelvis without Cont MR#: [id number] Acct: [id number] Name: DEBBIE MIRELES Rep #: [id number] : 1935 F 86 From: Justyn Chi PCP: Dr. Martina Lal, DO Status: REG ER Study: Abdomen/Pelvis without Cont Date of Exam: 06/21 11/09 Exam# [id number] Ordering Dr: Anthony Davila MD INDICATION: llq [...] Anthony Davila MD; Dr. Martina Lal DO High Pressure Cleaner: Signed Martina Lal DO Work Phone: Start: 07-13-2022 CT of abdomen and pelvis without contrast Dr. Martina Lal Work Phone: Start: 07-10-2022 End: 07-12-2022 Cardiology Visit Report Procedure Note: See Note; NOTES: [facility] [address] [place] [address] OFFICE VISIT Date of Service: 07/10/22 MR#: [id number] Acct: [id number] Name: DEBBIE MIRELES Rep #: [id number] : 1935 Provider: ERIKA perez Age/Sex: 86/F Location[place] [facility] Status: Signed [facility] History of Present Illness Details: DEBBIE MIRELES, [...] 97 Intake Visit Reasons: s/p hosp 07-07 Sales Support Technician Required: No Is patient in pain?: No [...] (Reviewed 07/12/22 @ 11:43 by Rama Camara HEAD OF SALES AND MARKETING, HEAD OF SALES AND MARKETING-C) Abnormal cardiac enzyme level Ambulates with cane [...] glasses Wears hearing aid Surgical History (Reviewed 07/12/22 @ 11:43 by Rama Camara HEAD OF SALES AND MARKETING, HEAD OF SALES AND MARKETING-C) History of cataract extraction History of cholecystectomy History of colonoscopy History of hysterectomy History of right breast biopsy ( 03/2022) History of umbilical hernia repair Family History (Reviewed 07/12/22 @ 11:43 by Rama Camara HEAD OF SALES AND MARKETING, HEAD OF SALES AND MARKETING-C) Brother Pancreatic cancer Diabetes Heart disease Lung [...] 1150 <Electronically signed by Rama Camara NP HEAD OF SALES AND MARKETING-C> Date Rama Camara NP HEAD OF SALES AND MARKETING-C Cosigner Signature: Date (if applicable) CC: DO Martina Swan DO Work Phone: Start: 07-02-2022 End: 07-02-2022 Chest 1 View (Portable) Procedure Note: See Note; NOTES: [facility] Imaging Services [address] [place] [address] Chest 1 View (Portable) MR#: [id number] Acct: [id number] Name: DEBBIE MIRELES Rep #: [id number] : 1935 F 86 From: Justyn Alcala MD PCP: Dr. Martina Lal DO Status: REG ER Study: Chest 1 View (Portable) Date of Exam: 07/02/22 Exam# [id number] Ordering Dr: Zeferino Kingsley MD STUDY: X-RAY [...] Zeferino Kingsley MD; Dr. Martina Lal DO High Pressure Cleaner: Signed Martina Lal DO Work Phone: Start: 07-02-2022 Plain chest X-ray Dr. Martina Lal Work Phone: Start: 07-02-2022 End: 07-02-2022 Emergency Department Summary Procedure Note: See Note; NOTES: [facility] Medical Records Department [address] [place] [address] Emergency Department Summary 07/02/22 MR#: [id number] Acct: [id number] Name: DEBBIE MIRELES Rep #: [id number] : 1935 86 From: Zeferino Kingsley MD [...] the reported elevated blood pressure over 200. [facility] Medical History Abnormal cardiac enzyme level [...] take Lasix as recommended also by her city letter carrier. I added a BNP. Given her hypoxia [...] % (Auto) 57.9 Lymph % (Auto) 30.0 Union % (Auto) 8.8 Eos % (Auto) 2.4 [...] Clarity Clear Urine pH 6.5 Ur Specific Neon 1.010 Urine Protein Negative Urine Glucose (UA) [...] Shakiness, Nausea Disposition Disposition: Acute Care Hospital [facility] What to do if you have Problems For any increased pain, shortness of breath, bleeding, nausea or vomiting, chest pain, or any unexpected problems, contact your Primary Care Provider. Call [facility] ([phone]) or report to the closest Emergency Room. Call 911 if necessary. 07/02/22 1144 <Electronically signed by Zeferino Kingsley MD> Cosigner Signature (if applicable): CC: Dr. Martina Lal, DO Signed Martina Lal DO Work Phone: Start: 06-18-2022 End: 06-18-2022 Oncology Visit Report Procedure Note: See Note; NOTES: [facility] [address] [place], [place] [address] [address] OFFICE VISIT Date of Service: 06/18/22 1434 MR#: [id number] Acct: [id number] Name: DEBBIE MIRELES Rep #: [id number] : 1935 From: Susan Mayberry NP HEAD OF SALES AND MARKETING -C Age/Sex: 86/F Location[place] [facility] Status: Signed HPI Subjective Date of Service [...] / CLONE RESULT E-Cad (ECH-6) positive CK8 (35dwncV67) positive Calponin-1 (KE223M) negative CK5-6 (D5 1684) negative P40 (BC28) negative P53 (DO-7) positive, rare cells, weak Ki-67 (30-9) positive, low, 15% MORPHOMETRIC ANALYSIS ER (clone 6F11) >95%, strong intensity NC (clone 16/1E2) 52%, weak to moderate intensity Her-2Neu (clone CB11) 0 April 30, 2022 right partial mastectomy with sentinel lymph node biopsy: MICROSCOPIC DIAGNOSIS A. Right axillary sentinel lymph nodes, biopsy: Two out of two lymph nodes, negative for carcinoma. B. Right breast mass, lumpectomy: Invasive ductal (mucinous) carcinoma. COMMENT A. Immunohistochemistry ([id number]) supports the above diagnosis. INVASIVE BREAST CANCER SUMMARY: Procedure - excision with wire guidance Specimen: Type - partial breast Size ??? 8 x 5 x 4 cm Laterality ??? right breast Tumor: Site ??? not specified Size ??? 2.5 x 2 x 1.5 cm Histologic type - invasive ductal (mucinous) carcinoma. Focality - single focus Histologic Grade (Makaweli grade): Glandular/tubular differentiation - score 2 Nuclear [...] - previously performed on section of tumor ([id number] / FZ53-3857). ER ??? positive (>95%, strong intensity) NC - positive ( 52%, weak to moderate [...] and adult son for an education visit. [facility] Medical History (Updated 06/18/22 @ 17:26 by Susan Mayberry HEAD OF SALES AND MARKETING, HEAD OF SALES AND MARKETING-C) Abnormal cardiac enzyme level Ambulates with cane [...] (Reviewed 06/12/22 @ 21:53 by Rama Camara HEAD OF SALES AND MARKETING, HEAD OF SALES AND MARKETING-C) History of cataract extraction History of cholecystectomy [...] (Reviewed 06/12/22 @ 21:53 by Rama Camara HEAD OF SALES AND MARKETING, HEAD OF SALES AND MARKETING-C) household members: 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 housing: house [...] 1 in 5 ft 1 in Intake Sales Support Technician Required: No Accompanied by: Daughter Is patient [...] right breast ER positive (over 95% strong) NC positive (52% weak) HER2/lc negative (0) Ki-67 [...] Visit Report Procedure Note: See Note; NOTES: [facility] [address] [place] [address] [place] [address] OFFICE VISIT Date of Service: 06/11/22 1439 MR#: [id number] Acct: [id number] Name: DEBBIE MIRELES Rep #: [id number] : 1935 From: Socorro Ivan MD Age/Sex: 86/F Location: [facility] [place] Status: Signed HPI Subjective Date of Service [...] / CLONE RESULT E-Cad (ECH-6) positive CK8 (68ohkjW22) positive Calponin-1 (LV400A) negative CK5-6 (D5 1684) negative P40 (BC28) negative P53 (DO-7) positive, rare cells, weak Ki-67 (30-9) positive, low, 15% MORPHOMETRIC ANALYSIS ER (clone 6F11) >95%, strong intensity NC (clone 16/1E2) 52%, weak to moderate intensity Her-2Neu (clone CB11) 0 April 30, 2022 right partial mastectomy with sentinel lymph node biopsy: MICROSCOPIC DIAGNOSIS A. Right axillary sentinel lymph nodes, biopsy: Two out of two lymph nodes, negative for carcinoma. B. Right breast mass, lumpectomy: Invasive ductal (mucinous) carcinoma. COMMENT A. Immunohistochemistry ([id number]) supports the above diagnosis. INVASIVE BREAST CANCER SUMMARY: Procedure - excision with wire guidance Specimen: Type - partial breast Size ??? 8 x 5 x 4 cm Laterality ??? right breast Tumor: Site ??? not specified Size ??? 2.5 x 2 x 1.5 cm Histologic type - invasive ductal (mucinous) carcinoma. Focality - single focus Histologic Grade (Makaweli grade): Glandular/tubular differentiation - score 2 Nuclear [...] - previously performed on section of tumor (B14-0701 / [id number]). ER ??? positive (>95%, strong intensity) NC - positive ( 52%, weak to moderate [...] consistent with abscess.??? Nonstandard communication protocol initiated. [facility] Medical History (Updated 06/11/22 @ 15:55 [...] no focal motor deficits Coordination / Balance: utgusb-ut-cjls test normal Speech: speech normal Gait (Neuro): [...] right breast ER positive (over 95% strong) NC positive (52% weak) HER2/lc negative (0) Ki-67 [...] for follow-up in winter) Socorro Ivan MD Hand Launderer, [facility] Divisions of Medical Oncology Hematology Department of Internal Medicine [place] [address] This note was generated using a voice [...] Visit Report Procedure Note: See Note; NOTES: [facility] [address] [place], [place] [address]e. [address] [place] [address] OFFICE VISIT Date of Service: 06/11/22 MR#: [id number] Acct: [id number] Name: DEBBIE MIRELES Rep #: [id number] : 1935 Provider: YAW stock Age/Sex: 86/F Location: [facility] Status: Signed Intake Vital Signs 06/04/22 14:01 [...] Global Post Op Diagnoses Breast abscess N61.1 [facility] Medical History (Updated 06/04/22 @ 14:16 by Rama Camara NP, HEAD OF SALES AND MARKETING-C) Abnormal cardiac enzyme level Ambulates with cane [...] glasses Wears hearing aid Surgical History (Reviewed 06/04/22 @ 14:13 by Rama Camara HEAD OF SALES AND MARKETING, HEAD OF SALES AND MARKETING-C) History of cataract extraction History of cholecystectomy [...] Acute Plan: No further follow-up needed 06/11/22 5066 <Electronically signed by Adeola WASHINGTON PA-C> Date Adeola WASHINGTON PA-C Cosigner Signature: Date (if applicable) CC: DO Martina Swan DO Work Phone: Start: 06-06-2022 End: 06-06-2022 Renal Artery Duplex Ultrasound Procedure Note: See Note; NOTES: [facility] [address] [place] [address] Renal Artery Duplex Ultrasound 06/06/22 0904 MR#: [id number] Acct: [id number] Name: DEBBIE MIRELES Rep #: [id number] : 1935 86 From: Willy Trimble MD [...] Physician: Martina Lal Performed By: George Rader, T 06/06/221211 Date Willy Trimble MD CC: Dr. Martina Lal DO Date Dictated: 06/06/2204 Date Transcribed: 06/06/221211 High Pressure Cleaner: Nighat Lal DO Work Phone: Start: 06-05-2022 Diagnostic radiography of abdomen Dr. Martina Lal Work Phone: Start: 06-04-2022 End: 06-12-2022 Cardiology Visit Report Procedure Note: See Note; NOTES: [facility] [address] [place], [place] [address] OFFICE VISIT Date of Service: 06/04/22 MR#: [id number] Acct: [id number] Name: DEBBIE MIRELES Rep #: [id number] : 1935 Provider: ERIKA perez Age/Sex: 86/F Location: [facility] [place] Status: Signed HPI HPI History of Present [...] 96 Intake Visit Reasons: 2 wk fu/CHF Sales Support Technician Required: No Is patient in pain?: No [...] mg PO Q4H 06/11/22 [History Confirmed 06/11/22] [facility] Medical History (Reviewed 06/12/22 @ 21:53 by Rama Camara HEAD OF SALES AND MARKETING, HEAD OF SALES AND MARKETING-C) Abnormal cardiac enzyme level Ambulates with cane [...] updated, as necessary. Follow Up: 3 Months (HEAD OF SALES AND MARKETING/PA) 12 Months (PFM) Coding Level of Care [...] 06/12/222205 <Electronically signed by Rama Camara NP HEAD OF SALES AND MARKETING-C> Date aRma Camara NP HEAD OF SALES AND MARKETING-C Cosigner Signature: Date (if applicable) CC: Dr. Martina Lal, DO Martina Lal DO Work Phone: Start: 05-19-2022 End: 05-23-2022 Chest 1 View (Portable) Procedure Note: See Note; NOTES: [facility] Imaging Services [address] [place] [address] Chest 1 View (Portable) MR#: [id number] Acct: [id number] Name: DEBBIE MIRELES Rep #: [id number] : 1935 F 86 From: Peyman Vaca MD PCP: Dr. Martina Lal DO Status: REG ER Study: Chest 1 View (Portable) Date of Exam: 05/19/22 Exam# [id number] Ordering Dr: Lisa Mariscal DO EXAM: XR CHEST, 1 VIEW CLINICAL INDICATION: dyspnea TECHNIQUE: Frontal view of the chest. This report was created using Enterra Feed report generation technology. COMPARISON: None. FINDINGS: LUNGS [...] 23:13 EDT Reading Location ID and State: [facility] / [place] Tel , Service support , CC: Dr. Martina Lal DO; Dr. Lisa Mariscal DO High Pressure Cleaner: Signed Martina Lal DO Work Phone: Start: 05-19-2022 Plain chest X-ray Dr. Martina Lal Work Phone: Start: 05-17-2022 Pulmonary ventilation perfusion study Dr. Martina Lal Work Phone: Start: 05-15-2022 Incision and drainage of abscess Dr. Martina Lal Work Phone: Start: 05-15-2022 End: 05-15-2022 Consultation - Surgical Procedure Note: See Note; NOTES: [facility] Medical Records Department [address] [place] [address] Consultation - Surgical 05/15/22 0007 MR#: [id number] Acct: [id number] Name: DEBBIE MIRELES Rep #: [id number] : 1935 86 From: Felice Waller MD [...] urinalysis evidence of probable urinary tract infection. [facility] Medical History Ambulates with cane Arthritis [...] HTN 06/26/18 [History Last Taken 09/25/18] Cardio Campo Healthy 1 cap PO DAILY SUPPLEMENT 05/22/20 [...] Clarity Clear, Urine pH 7.0, Ur Specific Neon 1.010, Urine Protein 30 H, Urine Glucose [...] EDT , 05/15/22 0021 <Electronically signed by Felice Waller MD> Cosigner Signature (if applicable): CC: Dr. Martina Lal DO Signed Martina Lal DO Work Phone: Start: 05-14-2022 End: 05-23-2022 Chest without Contrast Procedure Note: See Note; NOTES: [facility] Imaging Services [address] [place] [address] Chest without Contrast MR#: [id number] Acct: [id number] Name: DEBBIE MIRELES Rep #: [id number] : 1935 F 86 From: Hao tidwell MD PCP: Dr. Martina Lal DO Status: REG ER Study: Chest without Contrast Date of Exam: 05/14/22 Exam# [id number] Ordering Dr: Venkat Burnham DO We are [...] reconstruction technique. This report was created using Enterra Feed report generation technology. RADIATION DOSE: Total DLP: [...] Martina Lal DO; Dr. Venkat Burnham DO High Pressure Cleaner: Signed Martina Lal DO Work Phone: Start: 05-14-2022 CT of chest without contrast Dr. Martina Lal Work Phone: Start: 05-14-2022 End: 05-14-2022 Emergency Department Summary Procedure Note: See Note; NOTES: [facility] Records Department [address] [place] [address] Emergency Department Summary 05/14/22 MR#: [id number] Acct: [id number] Name: DEBBIE MIRELES Rep #: [id number] : 1935 86 From: Venkat Burnham DO [...] Michael Michel seroma status post recent drainage. [facility] Medical History Ambulates with cane Arthritis [...] HTN 06/26/18 [History Last Taken 09/25/18] Cardio Campo Healthy 1 cap PO DAILY SUPPLEMENT 05/22/20 [...] Color Urine Clarity Urine pH Ur Specific Neon Urine Protein Urine Glucose (UA) Urine Ketones [...] Clarity Clear Urine pH 7.0 Ur Specific Neon 1.010 Urine Protein 30 H Urine Glucose [...] 24 hr 25 mg PO BID Cardio Campo Healthy 1 cap PO DAILY lisinopril 20 [...] your Primary Care Provider. Call [facility] ([phone]) or report to the closest Emergency Room. Call 911 if necessary. 05/14/22 2351 <Electronically signed by Venkat Burnham DO> Cosigner Signature (if applicable): CC: Dr. Martina Lal DO Signed Martina Lal DO Work Phone: Start: 05-13-2022 End: 05-13-2022 Surgery Visit Report Procedure Note: See Note; NOTES: [facility] [address] [place], [place] [address] OFFICE VISIT Date of Service: 05/13/22 MR#: [id number] Acct: [id number] Name: DEBBIE MIRELES Rep #: [id number] : 1935 Provider: YAW stock Age/Sex: 86/F Location[place] [facility] Status: Signed Intake Vital Signs 04/30/22 [...] Visit Report Procedure Note: See Note; NOTES: [facility] [address] [place] [address]. [address] [place] [address] OFFICE VISIT Date of Service: 05/08/22 MR#: [id number] Acct: [id number] Name: DEBBIE MIRELES Rep #: [id number] : 1935 Provider: Dr. Michael carlos MD Age/Sex: 86/F Location: [facility] Status: Signed Intake Vital Signs 04/30/22 08:00 Height 5 ft 1 in Intake Visit Reasons: Post op Chief Complaint: right breast cancer Allergies morphine Adverse Reaction (Intermediate, Verified 04/30/22 08:03) mental status change meperidine HCl [From Demerol] Adverse Reaction (Mild, Verified 04/30/22 08:03) mental status change [facility] Medical History (Updated 05/08/22 @ 16:00 [...] safe at home: Yes HPI HPI HPI: [id number] female returns status post breast conservation surgery [...] report below. AM:stevie 05/03/2022 COMMENT A. Immunohistochemistry ([id number]) supports the above diagnosis. INVASIVE BREAST CANCER [...] score 2 Nuclear pleomorphism - score 2 [facility] DEPARTMENT OF LABORATORY SURGICAL PATHOLOGY REPORT [address] [place], [place] [address] Page 2 of 3 The contents of this transmission are privileged, confidential and exempt from disclosure under applicable law. If you have received this information in error, call . DEBBIE MIRELES MR# [id number] Mitotic count ??? score 1 Overall grade [...] - previously performed on section of tumor (R36-8490 / QH31-2728). ER ??? positive (>95%, strong intensity) NC - positive ( 52%, weak to moderate [...] Global Post Op Diagnoses Seroma, postoperative 05/08/22 2455 <Electronically signed by Michael Michel MD> Date Michael Michel MD Cosigner Signature: Date (if applicable) CC: Dr. Martina Lal, DO Martina Lal DO Work Phone: Start: 05-06-2022 End: 05-06-2022 Bone Scan Whole Body Procedure Note: See Note; NOTES: [facility] Imaging Services [address] [place] [address] Bone Scan Whole Body MR#: [id number] Acct: [id number] Name: DEBBIE MIRELES Rep #: [id number] : 1935 F 86 From: Justyn Marin PCP: Dr. Martina Lal DO Status: REG CLI Study: Bone Scan Whole Body Date of Exam: 05/06/22 Exam# [id number] Ordering Dr: Martina Lla DO CLINICAL: 86-year-old female with history of [...] 21:56 EDT Reading Location ID and State: [facility] / [place] Tel , Service support , CC: Dr. Martina Lal DO High Pressure Cleaner: Signed Martina Lal DO Work Phone: Start: 05-06-2022 Radionuclide whole body bone study Dr. Martina Lal Work Phone: Start: 04-30-2022 End: 04-30-2022 Operative Report Procedure Note: See Note; NOTES: [facility] Department [address] [place] [address] Operative Report 04/30/22 1053 MR#: [id number] Acct: [id number] Name: DEBBIE MIRELES Rep #: [id number] : 1935 86 From: Michael Michel MD PCP: Dr. Martina Lal, DO Status:[place] [facility] Location: [place] [address] Report of Operation Date of Procedure: 04/30/22 [...] Biopsy Specimen Procedure Note: See Note; NOTES: [facility] Imaging Services [address] [place] [address] Breast Biopsy Specimen MR#: [id number] Acct: [id number] Name: DEBBIE MIRELES Jana Rep #: [id number] : 1935 F 86 From: Reid corea MD PCP: Dr. Martina Lal DO Status: [facility] Study: Breast Biopsy Specimen Date of Exam: 04/30/22 Exam# [id number] Ordering Dr: Michael Michel MD SURGICAL BREAST SPECIMEN RADIOGRAPH CLINICAL: Document presence of mass in biopsy specimen. FINDINGS: Specimen shows presence of mass. Electronically Signed: Reid Hernandez MD at 11:30 EDT Reading Location ID and State: [facility] / [place] , Service support , BI/Breast Biopsy Specimen IMPRESSION: undefined CC: Dr. Martina Lal DO; Dr. Michael Michel MD High Pressure Cleaner: Signed Michael Michel MD Work Phone: Start: 04-30-[address] Martina Lal Work Phone: Start: 04-30-2022 Breast, Lumpectomy,SN w/ Neoprobe (Right) Dr. Martina Lal Work Phone: Start: 04-30-2022 End: 04-30-2022 Lymph Node Injection Only Procedure Note: See Note; NOTES: [facility] Imaging Services [address] [place] [address] Lymph Node Injection Only MR#: [id number] Acct: [id number] Name: DEBBIE MIRELES Rep #: [id number] : 1935 F 86 From: Reid corea MD PCP: Dr. Martina Lal DO Status: [facility] Study: Lymph Node Injection Only Date of Exam: Exam# [id number] Ordering Dr: Michael Michel MD PROCEDURE: NUCLEAR MEDICINE Injection Sterling Node - RIGHT breast(s). REASON FOR EXAM: Female, 86 years old. Right breast cancer. TECHNIQUE: Sterling node localization using radionuclide methods of the [...] Martina Lal DO; Dr. Michael Michel MD High Pressure Cleaner: Signed Michael Michel MD Work Phone: Start: 04-30-2022 Radionuclide sentinel lymph node study Dr. Martina Lal Work Phone: Start: 04-30-2022 End: 04-30-2022 Discharge Instruction Procedure Note: See Note; NOTES: [facility] Records Department [address] [place] [address] Instructions for Home/Discharge Instructions 04/30/22 0726 MR#: [id number] Acct: [id number] Name: DEBBIE MIRELES Rep #: [id number] : 1935 86 From: Michael Michel MD PCP: Dr. Martina Lal DO Status:[facility] Discharge Instructions Procedure Breast Surgery Diet Discharge [...] 24 hr 25 mg PO BID Cardio Campo Healthy 1 cap PO DAILY lisinopril 20 [...] can be placed): Home, Self Care 04/30/22 3107<Electronically signed by Michael Michel MD>Michael Michel MD CC: Dr. Martina Lal DO Signed Martina Lal DO Work Phone: Start: 04-30-2022 End: 04-30-2022 History and Physical Exam Procedure Note: See Note; NOTES: [facility] Records Department [address] [place] [address] History Physical Exam 04/30/22 0723 MR#: [id number] Acct: [id number] Name: DEBBIE MIRELES Jana Rep #: [id number] : 1935 86 From: Michael Michel MD PCP: Dr. Martina Lal DO Status:[facility] Location: [place] [address] History and Physical Date of Admission: 04/30/22 [facility] Complaint: right breast cancer Sales Support Technician Required: No Is patient in pain?: No [...] PO DAILY 06/26/18 [History Confirmed 04/15/22] Cardio Campo Healthy PO DAILY 05/22/20 [History Confirmed 04/15/22] [...] 2022.??? She presents with her son and fdahvqol-qn-omx.??? Today's appointment was a 30-minute rdvp-cc-wayr consultative appointment regarding the finding of right [...] ? RESULT E-Cad??? (ECH-6) ? positive CK8??? (01dpbrG17)??? positive Calponin-1 (NP117I) ? negative CK5-6??? (D5 1684) ? negative P40??? (BC28) ??? negative P53??? (DO-7) ? positive, rare cells, weak Ki-67??? (30-9)? positive, low, 15% ??? MORPHOMETRIC ANALYSIS? ER (clone 6F11)? >95%, strong intensity NC (clone 16/1E2) ? 52%, weak to moderate intensity Her-2Neu (clone CB11)? 0 My previous notes reflect the following Visit Reasons:???R BREAST BIRADS 4 Chief Complaint: abn breast US --right Sales Support Technician Required: No Is patient in pain?: No [...] PO DAILY 06/26/18 [History Confirmed 04/09/22] Cardio Campo Healthy PO DAILY 05/22/20 [History Confirmed 04/09/22] [...] biopsy of a clinically suspicious abnormality. ??? [id number] ??? Electronically Signed: Reid Hernandez MD at [...] Michael Michel M.D., F.A.C.S. Biopsy Breast Biopsy: 46959 US Guidance Procedure Time Out Time Out [...] Copy: Dr. Martina Michel M.D., F.A.C.S 04/30/22 8701 <Electronically signed by Michael Michel MD> Cosigner Signature (if applicable): CC: Dr. Martina Lal DO; Dr. Michael Michel MD Signed Martina Lal DO Work Phone: Start: 04-25-2022 End: 04-26-2022 Dexa Bone Density Study Procedure Note: See Note; NOTES: [facility] Imaging Services [address] [place] [address] Dexa Bone Density Study MR#: [id number] Acct: [id number] Name: CHISHAYNE PANTOJANIGina Patel Rep #: [id number] : 1935 F 86 From: Reid corea MD PCP: Dr. Martina Lal DO Status: [facility] Study: Dexa Bone Density Study Date of Exam: 04/25/22 Exam# [id number] Ordering Dr: Martina Lal DO STUDY: DUAL [...] EDT , CC: Dr. Martina Lal DO High Pressure Cleaner: Signed Martina Lal DO Work Phone: Start: 04-25-2022 Dual energy X-ray absorptiometry Dr. Martina Lal Work Phone: Start: 04-25-2022 End: 04-25-2022 Chest PA and Lateral Procedure Note: See Note; NOTES: [facility] Imaging Services [address] [place] [address] Chest PA and Lateral MR#: [id number] Acct: [id number] Name: DEBBIE MIRELES Rep #: [id number] : 1935 F 86 From: Baljit Lam MD PCP: Dr. Martina Lal, Status: [facility] [place]: Chest PA and Lateral Date of Exam: 04/25/22 Exam# [id number] Ordering Dr: Michael Michel MD STUDY: X-RAY [...] Martina Lal DO; Dr. Michael Michel MD High Pressure Cleaner: Signed Michael Michel MD Work Phone: Start: 04-25-2022 Plain chest X-ray Dr. Martina Lal Work Phone: Start: 04-15-2022 End: 04-15-2022 Surgery Visit Report Procedure Note: See Note; NOTES: [facility] [address] [place] [address]. [address] [place] [address] OFFICE VISIT Date of Service: 04/15/22 MR#: [id number] Acct: [id number] Name: DEBBIE MIRELES Jana Rep #: [id number] : 1935 Provider: Dr. Michael carlos MD Age/Sex: 86/F Location: [facility] Status: Signed Intake Intake Visit Reasons: discuss breast path Chief Complaint: right breast cancer Sales Support Technician Required: No Is patient in pain?: No [...] PO DAILY 06/26/18 [History Confirmed 04/15/22] Cardio Campo Healthy PO DAILY 05/22/20 [History Confirmed 04/15/22] [...] 2022. She presents with her son and [id number]. Today's appointment was a 30-minute [id number] consultative appointment regarding the finding of right breast cancer. The patient states that since her injection per Dr. Alamo her back is better but not completely resolved. She does have an upcoming appointment with him. 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 ANTIBODY / CLONE RESULT E-Cad (ECH-6) positive CK8 (27whwkL93) positive Calponin-1 (CP379S) negative CK5-6 (D5 1684) negative P40 (BC28) negative P53 (DO-7) positive, rare cells, weak Ki-67 (30-9) positive, low, 15% MORPHOMETRIC ANALYSIS ER (clone 6F11) >95%, strong intensity NC (clone 16/1E2) 52%, weak to moderate intensity Her-2Neu (clone CB11) 0 My previous notes reflect the following Visit Reasons:???R BREAST BIRADS 4 Chief Complaint: abn breast US --right Sales Support Technician Required: No Is patient in pain?: No [...] PO DAILY 06/26/18 [History Confirmed 04/09/22] Cardio Campo Healthy PO DAILY 05/22/20 [History Confirmed 04/09/22] [...] biopsy of a clinically suspicious abnormality. ??? [id number] ??? Electronically Signed: Reid Hernandez MD at [...] Michael Michel M.D., F.A.C.S. Biopsy Breast Biopsy: 78743 US Guidance Procedure Time Out Time Out [...] Visit Report Procedure Note: See Note; NOTES: [facility] [address] [place] [address] OFFICE VISIT Date of Service: 04/09/22 MR#: [id number] Acct: [id number] Name: DEBBIE MIRELES Rep #: [id number] : 1935 Provider: Dr. Michael carlos MD Age/Sex: 86/F Location: [facility] Status: Signed Intake Vital Signs 04/09/22 15:37 [...] 4 Chief Complaint: abn breast US --right Sales Support Technician Required: No Is patient in pain?: No [...] PO DAILY 06/26/18 [History Confirmed 04/09/22] Cardio Campo Healthy PO DAILY 05/22/20 [History Confirmed 04/09/22] [...] biopsy of a clinically suspicious abnormality. ??? [id number] ??? Electronically Signed: Reid Hernandez MD at [...] Michael Michel M.D., F.A.C.S. Biopsy Breast Biopsy: 61134 US Guidance Procedure Time Out Time Out [...] R92.8 CPT Codes Biopsy - Breast Biopsy: 95101 US Guidance (07123) 04/09/22 1610 <Electronically signed by Michael Michel MD> Date Michael Michel MD Cosigner Signature: Date (if applicable) CC: DO Martina Swan DO Work Phone: Start: 03-29-2022 End: 04-01-2022 Breast Limited Unilateral Procedure Note: See Note; NOTES: [facility] Imaging Services [address] [place] [address] Breast Limited Unilateral MR#: [id number] Acct: [id number] Name: DEBBIE MIRELES Rep #: [id number] : 1935 F 86 From: Reid corea MD PCP: Dr. Martina Lal DO Status: REG CLI Study: Breast Limited Unilateral Date of Exam: Exam# [id number] Ordering Dr: Michael Michel MD STUDY: ULTRASOUND [...] 9:45 EDT Reading Location ID and State: [facility] / [place] , Service support , CC: Dr. Martina Lal DO; Dr. Michael Michel MD High Pressure Cleaner: Signed Michael Michel MD Work Phone: Start: 03-29-[address] Martina Lal Work Phone: Start: 03-27-[address] Martina Lal Work Phone: Start: 03-27-2022 End: 03-27-2022 SCRN MAMM (CAD)W/ROBINSON BILAT Procedure Note: See Note; NOTES: [facility] Imaging Services [address] [place] [address] SCRN MAMM (CAD)W/ROBINSON BILAT MR#: [id number] Acct: [id number] Name: DEBBIE MIRELES Rep #: [id number] : 1935 F 86 From: Reid corea MD PCP: Dr. Martina Lal DO Status: [facility] CLI Study: SCRN MAMM (CAD)W/ROBINSON BILAT Date of Exam: 02/08 Exam# [id number] Ordering Dr: Michael Michel MD MAMMOGRAPHY - [...] delay biopsy of a clinically suspicious abnormality. [id number] Electronically Signed: Reid Hernandez MD at 14:15 EDT , CC: Dr. Martina Lal DO; Dr. Michael Michel MD High Pressure Cleaner: Signed Michael Michel MD Work Phone: Start: 03-18-2022 Radiography of thoracic spine Dr. Martina Lal Work Phone: Start: 03-18-2022 End: 03-18-2022 Thoracic Spine 3 Views Procedure Note: See Note; NOTES: [facility] Imaging Services [address] [place] [address] Thoracic Spine 3 Views MR#: [id number] Acct: [id number] Name: DEBBIE MIRELES Rep #: [id number] : 1935 F 86 From: Peyman Chi PCP: Dr. Martina Lal DO Status: REG CLI Study: Thoracic Spine 3 Views Date of Exam: 03/18/22 Exam# [id number] Ordering Dr: Michael Michel MD STUDY: X-RAY [...] 17:45 EDT Reading Location ID and State: [facility] / [place] , Service support , CC: Dr. Martina Lal DO; Dr. Michael Michel MD High Pressure Cleaner: Signed Michael Michel MD Work Phone: Start: 03-18-2022 End: 03-18-2022 Surgery Visit Report Procedure Note: See Note; NOTES: [facility] [address] [place] [address] OFFICE VISIT Date of Service: 03/18/22 MR#: [id number] Acct: [id number] Name: DEBBIE MIRELES Rep #: [id number] : 1935 Provider: Dr. Michael carlos MD Age/Sex: 86/F Location: [facility] Status: Signed Intake Vital Signs 03/18/22 10:22 Height 5 ft 1 in Weight: 233 lb 2 oz BMI 44.0 BP 182/59 H Blood Pressure Location Rt brachial Position Sitting Respiration 18 Pulse 61 Pulse Source NIBP Temp 98 F Temp Source Temporal Pulse Oximetry (%) 95 Oxygen Delivery Method room air Intake Visit Reasons: VENTRAL HERNIA Chief Complaint: abd pain/ ventral hernia Sales Support Technician Required: No Is patient in pain?: Yes [...] PO DAILY 06/26/18 [History Confirmed 03/18/22] Cardio Campo Healthy PO DAILY 05/22/20 [History Confirmed 03/18/22] [...] 22:52 EDT Reading Location ID and State: [address] [place] [address] Tel [phone], Service support??? , ROS General General: No [...] acute distress Nutritional Appearance: obese morbidly obese [facility] Head: normal to inspection Chest Other: Chest [...] M.D., F.A.C.S. Coding Level of Care Code 64237 Diagnoses Recurrent incisional hernia with incarceration K43.0 Right flank pain R10.9 03/18/22 1046 <Electronically signed by Michael Michel MD> Date Michael Salas Signature: Date (if applicable) CC: DO Martina Swan DO Work Phone: Start: 02-25-2022 End: 02-25-2022 Abdomen/Pelvis WITH Contrast Comments: See Note; NOTES: [facility] Services [address] [place] [address] Abdomen/Pelvis WITH Contrast MR#: [id number] Acct: [id number] Name: DEBBIE MIRELES Rep #: [id number] : 1935 F 86 From: Felix Keyes DO PCP: Dr. Martina Lal DO Status: REG CLI Study: Abdomen/Pelvis WITH Contrast Date of Exam: 03/11 Exam# [id number] Ordering Dr: Martina Lal DO STUDY: CT [...] 22:52 EDT Reading Location ID and State: [address] [place] [address] Tel [phone], Service support , CC: Dr. Martina Lal DO High Pressure Cleaner: Signed Martina Lal DO Work Phone: Start: 02-25-2022 Computed tomography of abdomen and pelvis with contrast Dr. Martina Lal Work Phone: Start: 11-09-2021 End: 04-22-2022 Pulmonary Visit Report Comments: See Note; NOTES: [facility] [address] [place], [place] [address] OFFICE VISIT Date of Service: 11/09/21 MR#: [id number] Acct: [id number] Name: DEBBIE MIRELES Rep #: [id number] : 1935 Provider: ERIKA Mcdaniels Age/Sex: 86/F Location: [facility] Status: Signed Assessment and Plan Assessment and Plan (1) ABDI (obstructive sleep apnea): Status: Acute Plan - Zelda Mcdaniels HEAD OF SALES AND MARKETING, HEAD OF SALES AND MARKETING-C: New. 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 She has never been prescribed an inhaler. [...] nasal canula Intake Visit Reasons: Sleep problems Sales Support Technician Required: No Accompanied by: Self Is patient [...] PO QDAY 05/22/20 [History Confirmed 11/09/21] Cardio Campo Healthy PO DAILY 05/22/20 [History Confirmed 11/09/21] [...] PO DAILY tab 11/09/21 [History Confirmed 11/09/21] [facility] Medical History (Updated 11/09/21 @ 16:06 by Zelda Mcdaniels HEAD OF SALES AND MARKETING, HEAD OF SALES AND MARKETING-C) Bilateral carotid artery stenosis Bilateral extracranial carotid artery stenosis GERD (gastroesophageal reflux disease) HTN (hypertension) Hyperlipidemia Type 2 diabetes mellitus Surgical History (Reviewed 11/09/21 @ 10:35 by Zelda Mcdaniels HEAD OF SALES AND MARKETING, HEAD OF SALES AND MARKETING-C) History of cataract extraction History of cholecystectomy History of hysterectomy History of umbilical hernia repair Family History (Reviewed 11/09/21 @ 10:35 by Zelda Mcdaniels HEAD OF SALES AND MARKETING, HEAD OF SALES AND MARKETING-C) Brother Diabetes Heart disease Hypertension Lung cancer Mother Hypertension Brother Colon cancer Brother Cancer Brother Sleep apnea Myocardial infarction Brother Sleep apnea Other Asthma Social History (Reviewed 11/09/21 @ 10:35 by Zelda Mcdaniels HEAD OF SALES AND MARKETING, HEAD OF SALES AND MARKETING-C) household members: 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 Martina Lal, DO Martina Lal DO Work Phone: Start: 10-12-2021 End: 10-12-2021 Carotid Duplex Ultrasound Comments: See Note; NOTES: [facility] [address] [place] [address] Carotid Duplex Ultrasound 10/12/21 0949 MR#: [id number] Acct: [id number] Name: DEBBIE MIRELES Rep #: [id number] : 1935 86 From: Michael Michel MD [...] the left vertebral artery. Procedure Carotid Duplex 67182. This is a Carotid Duplex examination using [...] DO Date Dictated: 10/12/21948 Date Transcribed: 10/12/211319 High Pressure Cleaner: Signed Martina Lal DO Work Phone: Start: 10-12-2021 End: 10-12-2021 Renal Artery Duplex Ultrasound Comments: See Note; NOTES: [facility] [address] [place] [address] Renal Artery Duplex Ultrasound 10/12/21 0904 MR#: [id number] Acct: [id number] Name: DEBBIE MIRELES Rep #: [id number] : 1935 86 From: Michael Michel MD [...] Date Dictated: 10/12/21903 Date Transcribed: 10/12/21 1317 High Pressure Cleaner: Signed Martina Lal DO Work Phone: Start: 04-17-2021 End: 04-18-2021 Upper Ext Joint Only(Routine) Comments: See Note; NOTES: [facility] Imaging Services [address] [place] [address] Upper Ext Joint Only(Routine) MR#: [id number] Acct: [id number] Name: DEBBIE MIRELES Rep #: [id number] : 1935 F 85 From: Vaughn Chi PCP: Nicolasa Nazario HEAD OF SALES AND MARKETING-C Status: REG CLI Study: Upper Ext Joint Only(Routine) Date of Exam: 0 04/17/21 Exam# [id number] Ordering Dr: Sanam Quesada MD STUDY: MRI [...] CC: ERIKA Nazario; Dr. Sanam Quesada MD High Pressure Cleaner: Signed Sanam Quesada Work Phone: Start: 04-04-2021 End: 04-05-2021 Shoulder min 2 Views Comments: See Note; NOTES: [facility] Imaging Services [address] [place] [address] Shoulder min 2 Views MR#: [id number] Acct: [id number] Name: DEBBIE MIRELES Rep #: [id number] : 1935 F 85 From: Arsenio Hyman MD PCP: ERIKA Hansen Status: REG CLI Study: Shoulder min 2 Views Date of Exam: 04/04/21 Exam# [id number] Ordering Dr: Nicolasa Nazario NP, NP-Jonn STUDY: [...] , Service support , CC: ERIKA Nazario High Pressure Cleaner: Signed Nicolasa Nazario AUTO CLUTCH SPECIALIST Work Phone: Anaerobic microbial culture Dr. Martina Lal Work Phone: Anaerobic microbial culture Dr. Martina Lal Work Phone: Anaerobic microbial culture Dr. Martina Lal Work Phone: Bacteria identified in Blood by Culture Dr. Martina Lal Work Phone: Cataract extraction bilateral Turner Balderas Comment on above: 12 Cataract extraction bilateral Turner Balderas NAUTICAL INSTRUMENT MECHANIC Comment on above: 12 Cataract extraction bilateral Diane Austin MA Comment on above: 12 Cataract extraction bilateral Keri Gravius JAVA DEVELOPER ANALYST Comment on above: 12 Cataract extraction bilateral Nelda Mohamud NAUTICAL INSTRUMENT MECHANIC Comment on above: 12 Cataract extraction bilateral Nelda Mohamud NAUTICAL INSTRUMENT MECHANIC Comment on above: 12 Cataract extraction bilateral Keri Gravius JAVA DEVELOPER ANALYST Comment on above: 12 Cataract extraction bilateral Keri Gravius JAVA DEVELOPER ANALYST Comment on above: 12 Cataract extraction bilateral Keri Gravius JAVA DEVELOPER ANALYST Comment on above: 12 Cataract extraction bilateral Turner Balderas NAUTICAL INSTRUMENT MECHANIC Comment on above: 12 Cataract extraction bilateral Kayela Keaton JAVA DEVELOPER ANALYST Comment on above: 12 Cataract extraction bilateral Kayela Daya JAVA DEVELOPER ANALYST Comment on above: 12 Cataract extraction bilateral Kayela Keaton JAVA DEVELOPER ANALYST Comment on above: 12 Cataract extraction bilateral Kayela Daya JAVA DEVELOPER ANALYST Comment on above: 12 Cataract extraction bilateral Kayela Keaton JAVA DEVELOPER ANALYST Comment on above: 12 Cataract extraction bilateral Katharina Manchak JAVA DEVELOPER ANALYST Comment on above: 12 Cholecystectomy Turner Balderas Comment on above: 97 Cholecystectomy Turner Balderas NAUTICAL INSTRUMENT MECHANIC Comment on above: 97 Cholecystectomy Diane Agata y MA Comment on above: 97 Cholecystectomy Keri Gravi us JAVA DEVELOPER ANALYST Comment on above: 97 Cholecystectomy Nelda Coffma n NAUTICAL INSTRUMENT MECHANIC Comment on above: 97 Cholecystectomy Nelda Coffma n NAUTICAL INSTRUMENT MECHANIC Comment on above: 97 Cholecystectomy Keri Gravi us JAVA DEVELOPER ANALYST Comment on above: 97 Cholecystectomy Keri Gravi us JAVA DEVELOPER ANALYST Comment on above: 97 Cholecystectomy Keri Gravi us JAVA DEVELOPER ANALYST Comment on above: 97 Cholecystectomy Turner Balderas NAUTICAL INSTRUMENT MECHANIC Comment on above: [address] JAVA DEVELOPER ANALYST Comment on above: [address] JAVA DEVELOPER ANALYST Comment on above: [address] JAVA DEVELOPER ANALYST Comment on above: [address] JAVA DEVELOPER ANALYST Comment on above: [address] JAVA DEVELOPER ANALYST Comment on above: 97 Cholecystectomy Katharina Manc hak JAVA DEVELOPER ANALYST Comment on above: 97 Colonoscopy Turner Balderas Comment on above: ,08,14 Colonoscopy Turner Balderas LP N Comment on above: ,,14 Colonoscopy Diane Zacarias Comment on above: ,,14 Colonoscopy Keri Gravius JAVA DEVELOPER ANALYST Comment on above: ,,14 Colonoscopy Nelda Mohamud L PN Comment on above: ,,14 Colonoscopy Nelda Mohamud L PN Comment on above: ,,14 Colonoscopy Keri Gravius JAVA DEVELOPER ANALYST Comment on above: ,,14 Colonoscopy Keri Gravius JAVA DEVELOPER ANALYST Comment on above: ,,14 Colonoscopy Keri Gravius JAVA DEVELOPER ANALYST Comment on above: ,,14 Colonoscopy Turner Balderas LP N Comment on above: ,,14 Colonoscopy Kayela Daya JAVA DEVELOPER ANALYST Comment on above: ,,14 Colonoscopy Kayela Keaton JAVA DEVELOPER ANALYST Comment on above: ,,14 Colonoscopy Kayela Daya JAVA DEVELOPER ANALYST Comment on above: 02,,14 Colonoscopy Kayela Keaton [facility] Comment on above: ,,14 Colonoscopy Kayela Daya JAVA DEVELOPER ANALYST Comment on above: ,,14 Colonoscopy Katharina Manchak JAVA DEVELOPER ANALYST Comment on above: ,,14 D&C >50yrs Turner Balderas D&C >50yrs Turner Balderas LP N D&C >50yrs Diane Austin M A D&C >50yrs Keri Gravius JAVA DEVELOPER ANALYST D&C >50yrs Nelda Mohamud L PN D&C >50yrs Nelda Mohamud L PN D&C >50yrs Keri Gravius JAVA DEVELOPER ANALYST D&C >50yrs Keri Gravius JAVA DEVELOPER ANALYST D&C >50yrs Keri Gravius JAVA DEVELOPER ANALYST D&C >50yrs Turner Balderas LP N D&C >50yrs Kayela Daya JAVA DEVELOPER ANALYST D&C >50yrs Kayela Keaton JAVA DEVELOPER ANALYST D&C >50yrs Kayela Keaton JAVA DEVELOPER ANALYST D&C >50yrs Kayela Keaton JAVA DEVELOPER ANALYST D&C >51yrs Kayela Keaton JAVA DEVELOPER ANALYST D&C >50yrs Katharina Abhinavchak JAVA DEVELOPER ANALYST Hysterectomy Turner Andrey Hysterectomy Turner Andrey LP N Hysterectomy Diane Austin M A Hysterectomy Keri Gravius JAVA DEVELOPER ANALYST Hysterectomy Nelda Mohamud L PN Hysterectomy Nelda Mohamud L PN Hysterectomy Keri Gravius JAVA DEVELOPER ANALYST Hysterectomy Keri Gravius JAVA DEVELOPER ANALYST Hysterectomy Keri Gravius JAVA DEVELOPER ANALYST Hysterectomy Turner Andrey LP N Hysterectomy Kayela Keaton JAVA DEVELOPER ANALYST Hysterectomy Kayela Keaton JAVA DEVELOPER ANALYST Hysterectomy Kayela Daya JAVA DEVELOPER ANALYST Hysterectomy Kayela Keaton JAVA DEVELOPER ANALYST Hysterectomy Kayela Keaton JAVA DEVELOPER ANALYST Hysterectomy Katharina Manchak JAVA DEVELOPER ANALYST Investigation of transfusion reaction Dr. Martina Lal Work Phone: Investigation of transfusion reaction Dr. Martina Lal Work Phone: Microbial culture, routine Dr. Martina Lal Work Phone: Microbial culture, routine Dr. Martina Lal Work Phone: Microbial culture, routine Dr. Martina Lal Work Phone: Minor knee surgery 2018-Dr. Ly Balderas Minor knee surgery 2018-Dr. Ly Balderas LPN Minor knee surgery 2018-Dr. Ly Austin [place] Minor knee surgery 2018-Dr. Ly Johnson [facility] Minor knee surgery 2018-Dr. Ly Mallory [facility] Minor knee surgery 2018-Dr. Ly Mall[facility] Minor knee surgery 2018-Dr. Ly Johnson [facility] Minor knee surgery 2018-Dr. Ly Johnson [facility] Minor knee surgery 2018-Dr. Ly Johnson [facility] Minor knee surgery 2018-Dr. Ly Balderas [facility] Minor knee surgery 2018-Dr. Ly Stapleton [facility] Minor knee surgery 2018-Dr. Ly Stapleton [facility] Minor knee surgery 2018-Dr. Ly Stapleton [facility] Minor knee surgery 2018-Dr. Ly Stapleton [facility] Minor knee surgery 2018-Dr. Ly Stapleton [facility] Minor knee surgery 2018-Dr. Ly Marion [facility] Repair of inguinal hernia Turner Balderas Respiratory [...] and lateral views Chest PA and Lateral [facility] Start: 09-10-2023 [facility] Start: 01-31-2023 Procedure Education Eprescribed prescriptions (G8553) [facility] Work Phone: Start: 08-29-2022 Procedure Education Eprescribed prescriptions (G8553) [facility] Work Phone: Start: 08-29-2022 Provider Instructions for Treatment [facility] Work Phone: Start: 08-13-2022 Basic metabolic panel calcium total METABOLIC PANEL, BASIC (60174) [facility] Work Phone: Comment on above: Faxed to outreach Start: 08-07-2022 Basic metabolic panel calcium total METABOLIC PANEL, BASIC (42069) [facility] Work Phone: Start: 07-31-2022 Comprehensive metabolic panel METABOLIC PANEL, COMPREHENSIVE (25487) [facility]; [facility] Work Phone: Start: 07-25-2022 Procedure Education Eprescribed prescriptions (G8553) [facility] Work Phone: Start: 07-25-2022 Provider Instructions for Treatment [facility] Work Phone: Start: 07-25-2022 Basic metabolic panel calcium total METABOLIC PANEL, BASIC (27411) [facility] Work Phone: Start: 07-17-2022 Patient discharge [facility] Start: 07-16-2022 Referral to service [facility] Start: 07-16-2022 Admission procedure [facility] Start: 07-15-2022 Care planning and problem solving actions [facility] Start: 07-14-2022 Application of intermittent pneumatic compression device [facility] Start: 07-14-2022 Following clinical pathway protocol [facility] Start: 07-14-2022 Assessment of risk of venous thromboembolism [facility] Start: 07-14-2022 Fall prevention [facility] Start: 07-14-2022 Incentive spirometry [facility] Start: 07-14-2022 Inhalation therapy procedure [facility] Start: 07-14-2022 Insertion of catheter into peripheral vein [facility] Start: 07-14-2022 Introduction of urinary catheter [facility] Start: 07-14-2022 Measuring intake and output [facility] Start: 07-14-2022 Oxygen therapy [facility] Start: 07-14-2022 Providing care according to standard [facility] Start: 07-14-2022 Provision of activity privileges [facility] Start: 07-14-2022 Referral to occupational therapist [facility] Start: 07-14-2022 Referral to service [facility] Start: 07-14-2022 [facility] Start: 07-14-2022 Verification routine [facility] Work Phone: Start: 07-14-2022 Patient referral to dietitian [facility] Start: 07-13-2022 Admission procedure [facility] Start: 07-13-2022 [facility] Work Phone: Start: 07-10-2022 Basic metabolic panel calcium total Metabolic Panel, Basic (75488) [facility] Work Phone: Start: 07-10-2022 Procedure Education Eprescribed prescriptions (G8553) [facility] Work Phone: Start: 07-10-2022 Provider Instructions for Treatment [facility] Work Phone: Start: 07-07-2022 Patient discharge [facility] Start: 07-07-2022 [facility] Start: 07-04-2022 Referral to service [facility] Start: 07-04-2022 Referral to city letter carrier [facility] Start: 07-04-2022 Referral to patient case manager [facility] Start: 07-03-2022 Admission procedure [facility] [facility] Start: 07-03-2022 Following clinical pathway protocol [facility] Start: 07-02-2022 Application of intermittent pneumatic compression device [facility] Start: 07-02-2022 Care regimes management [facility] Start: 07-02-2022 Notification of physician [facility] Start: 07-02-2022 [facility] Start: 07-02-2022 Assessment of risk of venous thromboembolism [facility] Start: 07-02-2022 Inhalation therapy procedure [facility] Start: 07-02-2022 Insertion of catheter into peripheral vein [facility] Start: 07-02-2022 Measuring intake and output [facility] Start: 07-02-2022 Oxygen therapy [facility] Start: 07-02-2022 Providing care according to standard [facility] Start: 07-02-2022 Provision of activity privileges [facility] Start: 07-02-2022 Referral to occupational therapist [facility] Start: 07-02-2022 Referral to service [facility] Start: 07-02-2022 [facility] Start: 07-02-2022 Following clinical pathway protocol [facility] Start: 07-02-2022 Verification routine [facility] Work Phone: Start: 07-02-2022 End: 07-03-2022 [facility] Start: 07-02-2022 Admission procedure [facility] Start: 06-11-2022 Patient referral [facility] Work Phone: Start: 06-10-2022 Blood count complete automated CBC & PLATELETS (AUTO) (33416) [facility] Work Phone: Start: 06-10-2022 Basic metabolic panel calcium total METABOLIC PANEL, BASIC (32751) [facility] Work Phone: Start: 06-10-2022 Procedure Education Eprescribed prescriptions (G8553) [facility] Work Phone: Start: 06-10-2022 Provider Instructions for Treatment [facility] Work Phone: Start: 06-09-[address] [facility] Start: 06-07-2022 Basic metabolic panel calcium total METABOLIC PANEL, BASIC (47657) [facility] Work Phone: Start: 06-07-2022 CBC, PLATELETS & MANUAL DIFF (85506) CBC, PLATELETS & MANUAL DIFF (79498) [facility] Work Phone: Start: 06-06-2022 Patient discharge [facility] Start: 06-04-2022 [facility] Start: 06-03-2022 Referral to service [facility] Start: 06-03-2022 [facility] Start: 05-29-2022 Referral to ict programmer [facility] Start: 05-27-2022 [facility] Start: 05-27-2022 [facility] Start: 05-24-[address] [facility] Start: 05-24-2022 Developing a treatment plan [facility] Start: 05-24-2022 Referral to city letter carrier [facility] Start: 05-23-2022 End: 05-24-2022 [facility] Start: 05-23-2022 Consultation for treatment [facility] Start: 05-23-2022 Following clinical pathway protocol [facility] Start: 05-23-2022 Wound care [facility] Start: 05-23-2022 Admission procedure [facility] Start: 05-23-2022 Measuring intake and output [facility] Start: 05-23-2022 Patient referral to dietitian [facility] Start: 05-23-2022 Referral to occupational therapist [facility] Start: 05-23-2022 Referral to service [facility] Start: 05-23-[address] [facility] Start: 05-23-2022 Patient discharge [facility] Start: 05-22-2022 Referral to service [facility] Start: 05-21-2022 Referral to patient case manager [facility] Start: 05-20-2022 Referral to city letter carrier [facility] Start: 05-20-2022 Referral to occupational therapist [facility] Start: 05-20-2022 Referral to service [facility] Start: 05-20-2022 Care regimes management [facility] Start: 05-20-2022 Ambulation without limitation [facility] Start: 05-20-2022 Assessment of risk of venous thromboembolism [facility] Start: 05-20-2022 Consultation for treatment [facility] Start: 05-20-2022 Elevation of affected extremity [facility] Start: 05-20-2022 Insertion of catheter into peripheral vein [facility] Start: 05-20-2022 Measuring intake and output [facility] Start: 05-20-2022 End: 05-20-2022 Notification of physician [facility] Start: 05-20-2022 Oxygen therapy [facility] Start: 05-20-2022 Patient education [facility] Start: 05-20-2022 Providing care according to standard [facility] Start: 05-20-2022 End: 05-20-2022 [facility] Start: 05-20-2022 Admission procedure [facility] Start: 05-20-2022 End: 05-20-2022 Following clinical pathway protocol [facility] Start: 05-20-2022 Patient referral to dietitian [facility] Start: 05-18-2022 Referral to service [facility] Start: 05-18-2022 Patient discharge [facility] Start: 05-18-2022 [facility] Start: 05-17-2022 Consultation [facility] Start: 05-16-2022 Oxygen therapy [facility] Start: 05-16-2022 Inhalation therapy procedure [facility] Start: 05-15-2022 [facility] Start: 05-15-2022 Care planning and problem solving actions [facility] Start: 05-15-2022 Incentive spirometry [facility] Start: 05-15-2022 Referral to occupational therapist [facility] Start: 05-15-2022 Referral to service [facility] Start: 05-15-2022 Application of intermittent pneumatic compression device [facility] Start: 05-15-2022 Assessment of risk of venous thromboembolism [facility] Start: 05-15-2022 Care regimes management [facility] Start: 05-15-2022 Consultation for treatment [facility] Start: 05-15-2022 Documentation procedure [facility] Start: 05-15-2022 Insertion of catheter into peripheral vein [facility] Start: 05-15-2022 Notification of physician [facility] Start: 05-15-2022 Providing care according to standard [facility] Start: 05-15-2022 Provision of activity privileges [facility] Start: 05-15-2022 Referral to general surgeon [facility] Start: 05-15-2022 [facility] Start: 05-15-2022 Following clinical pathway protocol [facility] Start: 05-15-2022 Admission procedure [facility] Start: 05-15-2022 Patient referral to dietitian [facility] Start: 05-14-2022 [facility] Work Phone: Start: 05-14-2022 End: 05-14-2022 Blood culture [facility] Work Phone: Start: 05-14-2022 [facility] Work Phone: Start: 05-10-2022 Procedure Education Eprescribed prescriptions (G8553) [facility] Work Phone: Start: 05-10-2022 Provider Instructions for Treatment [facility] Work Phone: Start: 05-10-2022 Assay of aldosterone ALDOSTERONE (40892) [facility] Work Phone: Start: 05-10-2022 Assay of renin RENIN (87082) [facility] Work Phone: Start: 05-10-2022 Metanephrines METANEPHRINES - URINE (47105) [facility] Work Phone: Start: 05-10-2022 Catecholamines total urine CATECHOLAMINES TOTAL, URINE (02290) [facility] Work Phone: Start: 05-10-2022 Assay of vanillylmandelic acid urine URINE VMA (02116) [facility] Work Phone: Start: 05-09-2022 Patient referral [facility] Work Phone: Start: 04-30-2022 Anesthesia radical/modified radical breast [facility] Start: 04-30-2022 Bx/exc lymph node open deep axillary node [facility] Start: 04-30-2022 Inj radioactive tracer for id of sentinel node [facility] Start: 04-30-2022 Mastectomy partial [facility] Start: 04-30-2022 Patient discharge [facility] Start: 04-19-2022 Provider Instructions for Treatment [facility] Work Phone: Start: 03-14-2022 Procedure Education Eprescribed prescriptions (G8553) [facility] Work Phone: Start: 03-14-2022 Provider Instructions for Treatment Reviewed Diagnostic Tests [facility] Work Phone: Start: 03-08-2022 Assay of hydroxyindolacetic acid 5-hiaa HYDROXYINDOLACET ACID 5- (31138) [facility] Work Phone: Start: 03-08-2022 Adrenocorticotropic hormone acth ACTH (90779) [facility] Work Phone: Start: 03-08-2022 Cortisol total CORTISOL TOTAL (69682) [facility] Work Phone: Start: 03-08-2022 Cortisol free CORTISOL FREE (26464) [facility] Work Phone: Start: 03-07-2022 Procedure Education Eprescribed prescriptions (G8553) [facility] Work Phone: Start: 03-07-2022 Provider Instructions for Treatment [facility] Work Phone: Start: 03-05-2022 Dehydroepiandrosterone DHEA (DEHYDROEPIANDROSTERONE ) (53733) [facility] Work Phone: Start: 03-05-2022 Acth stimulation panel adrenal insufficiency ACTH STIMULATION PANEL; FOR ADRENAL INSUFFICIENCY (16770) [facility] Work Phone: Start: 03-05-2022 Assay of hydroxyindolacetic acid 5-hiaa HYDROXYINDOLACET ACID 5- (90573) [facility] Work Phone: Start: 03-05-2022 Adrenocorticotropic hormone acth ACTH (96557) [facility] Work Phone: Start: 03-05-2022 Cortisol free Cortisol,Urinary Free 24- Hour Urine (70576) [facility] Work Phone: Start: 03-05-2022 Metanephrines METANEPHRINES (73922) [facility] Work Phone: Start: 03-05-2022 Catecholamines fractionated Catecholamines,24-Hour Urine (13807) [facility] Work Phone: Start: 02-27-2022 Assay of hydroxyindolacetic acid 5-hiaa HYDROXYINDOLACET ACID 5- (66754) [facility] Work Phone: Start: 02-27-2022 Adrenocorticotropic hormone acth ACTH (66751) [facility] Work Phone: Start: 02-27-2022 Dehydroepiandrosterone DHEA (DEHYDROEPIANDROSTERONE ) (25108) [facility] Work Phone: Start: 02-27-2022 Acth stimulation panel adrenal insufficiency ACTH STIMULATION PANEL; FOR ADRENAL INSUFFICIENCY (53422) [facility] Work Phone: Start: 02-27-2022 Cortisol free Cortisol,Urinary Free 24- Hour Urine (89095) [facility] Work Phone: Start: 02-27-2022 Catecholamines fractionated Catecholamines,24-Hour Urine (44348) [facility] Work Phone: Start: 02-27-2022 Metanephrines METANEPHRINES - URINE (85178) [facility] Work Phone: Comment on above: 24 hr urine Start: 02-18-2022 C-reactive protein C-REACTIVE PROTEIN (63347) [facility] Work Phone: Start: 02-18-2022 Sedimentation rate rbc non-automated Sed Rate Erythrocyte (07591) [facility] Work Phone: Start: 02-18-2022 Comprehensive metabolic panel Metabolic Panel, Comprehensive (34223) [facility] Work Phone: Start: 02-18-2022 Blood count manual cell count each CBC with auto diff (11500) [facility] Work [...] Phone: Start: 12-31-2021 Assay of parathormone PARATHORMONE (44807) [facility] Work Phone: Start: 12-31-2021 Assay of thyroid stimulating hormone tsh [facility] Work Phone: Start: 12-31-2021 Urnls dip stick/tablet reagent auto microscopy URINALYSIS, W/ MICRO (73749) [facility] Work Phone: Start: 12-31-2021 Urine albumin quantitative MICROALBUMIN: CREATININE RATIO (54025) AND (10945) [facility] Work Phone: Start: 12-31-2021 Comprehensive metabolic panel METABOLIC PANEL, COMPREHENSIVE (88399) [facility] Work Phone: Start: 12-31-2021 Blood count complete auto&auto difrntl wbc CBC W/AUTO DIFF WBC (50512) [facility] Work Phone: Start: 12-31-2021 Lipid panel LIPID PANEL (93459) [facility] Work Phone: Start: 12-31-2021 25 hydroxy includes fractions if performed CALCIFIDIOL (33869) VIT D 25 [facility] Work Phone: Start: 12-19-2021 Potassium serum plasma/whole blood POTASSIUM SERUM (07273) [facility] Work Phone: Start: 10-17-2021 Comprehensive metabolic panel METABOLIC PANEL, COMPREHENSIVE (76995) [facility] Work Phone: Start: 10-17-2021 Assay of parathormone PARATHORMONE (06665) [facility] Work Phone: Start: 10-17-2021 Procedure Education Eprescribed prescriptions (G8553) [facility] Work Phone: Start: 10-17-2021 Provider Instructions for Treatment [facility] Work Phone: Start: 10-10-2021 Procedure Education Eprescribed prescriptions (G8553) [facility] Work Phone: Start: 10-10-2021 Assay of parathormone PARATHORMONE (58576) [facility] Work Phone: Comment on above: Fax to hospital October 12 Start: 10-10-2021 Calcium total CALCIUM SERUM (40819) [facility] Work Phone: Comment on above[facility] Start: 10-03-2021 Provider Instructions for Treatment Follow up if no improvement or if symptoms worsen [facility] Work Phone: Start: 09-26-2021 Assay of aldosterone ALDOSTERONE (75134) [facility] Work Phone: Start: 09-26-2021 Assay of renin RENIN (29330) [facility] Work Phone: Start: 09-26-2021 Metanephrines METANEPHRINES - URINE (24986) [facility] Work Phone: Start: 09-26-2021 Catecholamines total urine CATECHOLAMINES TOTAL, URINE (08163) [facility] Work Phone: Start: 09-26-2021 Assay of vanillylmandelic acid urine URINE VMA (97557) [facility] Work [...] 08-09-2021 Assay of troponin quantitative Troponin I (70539) [facility] Work Phone: Start: 08-09-2021 Urnls dip stick/tablet reagent auto microscopy URINALYSIS, W/ MICRO (92009) [facility] Work Phone: Start: 08-09-2021 Comprehensive metabolic panel METABOLIC PANEL, COMPREHENSIVE (16185) [facility]; [facility] Work Phone: Start: 08-09-2021 Blood count complete auto&auto difrntl wbc CBC W/AUTO DIFF WBC (87715) [facility] Work Phone: Start: 08-09-2021 Procedure Education Eprescribed prescriptions (G8553) [facility] Work Phone: Start: 05-31-2021 Basic metabolic panel calcium total METABOLIC PANEL, BASIC (87708) [facility] Work Phone: Start: 05-28-2021 Procedure Education Eprescribed prescriptions (G8553) [facility] Work Phone: Start: 05-28-2021 Provider Instructions for Treatment [facility] Work Phone: Start: 05-28-2021 Assay of thyroid stimulating hormone tsh TSH (00848) [facility] Work Phone: Start: 05-28-2021 Urnls dip stick/tablet reagent auto microscopy URINALYSIS, W/ MICRO (25102) [facility] Work Phone: Start: 05-28-2021 Urine albumin quantitative MICROALBUMIN: CREATININE RATIO (33472) AND (18869) [facility] Work Phone: Start: 05-28-2021 Comprehensive metabolic panel METABOLIC PANEL, COMPREHENSIVE (96827) [facility] Work Phone: Start: 05-28-2021 Blood count complete auto&auto difrntl wbc CBC W/AUTO DIFF WBC (84151) [facility] Work Phone: Start: 05-28-2021 Lipid panel LIPID PANEL (55375) [facility] Work [...] 12-13-2020 Hemoglobin glycosylated a1c HgA1C , Office (88098) [facility] Work Phone: Start: 12-13-2020 Gluc bld gluc mntr dev cleared fda spec home use Blood Glucose , Office (44321) [facility] Work Phone: Start: 12-08-2020 Renal function panel RENAL FUNCTION PANEL (17508) [facility] Work Phone: Start: 12-08-2020 Lipid panel LIPID PANEL (78814) [facility] Work Phone: Start: 09-15-2020 Procedure Education Eprescribed prescriptions (G8553) [facility] Work Phone: Start: 09-15-2020 Provider Instructions for Treatment [facility] Work Phone: Start: 09-15-2020 Blood count complete auto&auto difrntl wbc CBC, Platelets & Auto Diff (73499) [facility] Work Phone: Start: 09-15-2020 TSH Qn TSH (99879) [facility] Work Phone: Start: 09-15-2020 Comprehensive metabolic panel Metabolic Panel, Comprehensive (79847) [facility] Work Phone: Start: 09-15-2020 25 hydroxy includes fractions if performed CALCIFEDIOL (66284) [facility] Work Phone: Start: 05-09-2017 End: 05-09-[address] [facility] Work Phone: [address] [facility] Work Phone: [address] [facility] Aldosterone [Mass/vo lume] in Serum or Plasma [facility] Work Phone: Bacteria identified in Blood by Culture Blood Culture [facility] Work Phone: Bacteria identified in Urine by Culture Urine Culture [facility] Work Phone: Blood culture [facility] Work Phone: Catecholamine measurement [facility] Work Phone: CBC W Auto Different ial panel - Blood [facility] Work Phone: CBC W Auto Different ial panel - Blood [facility] DOPamine [Mass/volum e] in Serum or Plasma [facility] Work Phone: EPINEPHrine [Mass/vo lume] in Plasma [facility] Work Phone: Hepatic function panel [facility] Influenza virus A an d B and SARS-CoV-2 (COVID-19) Ag panel - Upper respiratory specim [facility] Work Phone: Lipid 1996 panel - S anum or Plasma [facility] MG Breast - bilatera l Screening [facility] Work Phone: NM Heart Views W str ess and W radionuclide IV [facility] Patient Education [facility] Work Phone: Patient referral [facility] Work Phone: Plasma norepinephrin e measurement [facility] Work Phone: Renin [Enzymatic activity/volume] in Plasma [facility] Work Phone: Respiratory syncytia l virus Ag [Presence] in Tissue by Immune stain [facility] Work Phone: SARS-CoV-2 & FLU Ant igen (Rapid) SARS-CoV-2 & FLU Antigen (Rapid) [facility] Work Phone: US Heart [facility] [...] [facility]; [facility] Work Phone: [facility] Immunizations Immunization Date Immunization Notes Care Provider [facility] 04-12-2020 Influenza, high dose seasonal Dr. Martina Lal DO Work Phone: [facility] 04-12-2020 influenza, high dose seasonal, preservative-free Dr. Martina Lal Work Phone: [facility] 05-13-2019 Influenza, high dose seasonal Dr. Martina Lal DO Work Phone: [facility] 05-13-2019 influenza, high dose seasonal, preservative-free Dr. Martina Lal Work Phone: [facility] 05-27-[address] Martina Lal Work Phone: [facility] 04-17-2017 Influenza, high dose seasonal Dr. Martina Lal DO Work Phone: [facility] 04-17-2017 influenza, high dose seasonal, preservative-free Dr. Martina Lal Work Phone: [facility] 03-02-2015 pneumococcal conjuga te vaccine, [address] Martina Lal Work Phone: [facility] Payers Date Payer Category Payer Self-pay [id number] 2022 Private Health Insurance [id number] 2009 Medicare [id number] 1935 Unknown [id number] Unknown [employer] Unknown [id number] Unknown [id number] [id number]2 Unknown [id number] 2.16.840.1.245628.3.579.2.462 Unknown [id number] 2.16.840.1.515253.3.579.2.462 Unknown [id number] 2.16.840.1.148457.3.579.2.462 Unknown [id number] 2.16.840.1.023244.3.579.2.462 Unknown [id number] 2.16.840.1.079559.3.579.2.462 Unknown [id number] 2.16.840.1.315363.3.579.2.462 Unknown [id number] 2.16.840.1.652144.3.579.2.462 Unknown [id number] 2.16.840.1.548925.3.579.2.462 Unknown [id number] 2.16.840.1.477546.3.579.2.462 Unknown [id number] 2.16.840.1.967627.3.579.2.462 Unknown [id number] 2.16.840.1.847307.3.579.2.462 Unknown [id number] 2.16.840.1.553302.3.579.2.462 Unknown [id number] 2.16.840.1.913492.3.579.2.462 Unknown [id number] 2.16.840.1.422046.3.579.2.462 Unknown [id number] 2.16.840.1.790109.3.579.2.462 Unknown [id number] 2.16.840.1.100420.3.579.2.462 Unknown [id number] 2.16.840.1.298030.3.579.2.462 Unknown [id number] 2.16.840.1.640531.3.579.2.462 Unknown [id number] 2.16.840.1.945097.3.579.2.462 Unknown [id number] 2.16.840.1.765726.3.579.2.462 Unknown [id number] 2.16.840.1.427358.3.579.2.462 Unknown [id number] 2.16.840.1.942715.3.579.2.462 Unknown [id number] 2.16.840.1.407009.3.579.2.462 Social History Date Type Detail Facility Caffeine Use Caffeine Use [facility] Work Phone: Comment on above: 1 daily Living Situation: Living Situation: [facility]; [facility] Work Phone: Living Situation: Living Situation: [facility]pr [facility]; [facility] Work Phone: Start: 06-28-2020 End: 09-10-2022 Tobacco smoking status NHIS Unknown if ever smoked [facility] Start: 07-29-2014 None [facility] Start: 07-29-2014 Alone [facility] Start: 07-29-2014 Non-smoker [facility] Start: 1935 Sex Assigned At Female [facility] Start: 03-12-2024 End: 12-24-2024 Tobacco smoking status NHIS Never smoked tobacco (finding) [facility] Start: 10-14-2024 End: 11-15-2024 Sex Female (finding) [facility] NEGATED: Highlighted row [facility] Medical Equipment Procedure Code Equipment Code [...] Assessment Result Facility 07-17-2022 Functional status Chair [facility] Work Phone: 07-17-2022 Functional status Standby Assist [facility] Work Phone: 07-07-2022 Functional status Chair [facility] Work Phone: 07-06-2022 Functional status Well [facility] Work Phone: 06-06-2022 Functional status Ambulates;Up ad emely [facility] Work Phone: 05-23-2022 Functional status Ambulates [facility] Work Phone: 05-18-2022 Functional status Chair [facility] Work Phone: Mental Status Date Assessment Result Facility 09-10-2023 Cognitive function Level Of Cons ciousness Awake;Alert;Appropriate;Follow s Commands;Responds to vocal stimuli [facility] Work Phone: 07-17-2022 Cognitive function Voice/Name [facility] Work Phone: 07-13-2022 Cognitive function Level Of Cons ciousness Awake;Alert;Appropriate [facility] Work Phone: 07-07-2022 Cognitive function Voice/Name [facility] Work Phone: 07-02-2022 Cognitive function Level Of Cons ciousness Awake;Alert;Appropriate;Follow s Commands [facility] Work Phone: 06-06-2022 Cognitive function Voice/Name [facility] Work Phone: 05-23-2022 Cognitive function Voice/Name [facility] Work Phone: 05-18-2022 Cognitive function Voice/Name [facility] Work Phone: 05-14-2022 Cognitive function Level Of Cons ciousness Awake;Alert;Appropriate [facility] Work Phone: 04-30-2022 Cognitive function Voice/Name [facility] Work Phone: Clinical Notes 08-24-2020 to [...] apnea) chronic December 16, 2024 1 :29pm [facility] Work Phone: [phone]) [phone] Evaluation note* Diagnosis Onset Date Resolution Status [...] leg pain acute January 01, 2025 12:12pm [facility] Work Phone: 1(579) 266-865903-20-2025 Radiology Diagnostic study note [facility] Imaging Services [address] [place] [address] Abdomen without IV Contrast MR#: [id number] Acct: [id number] Name: DEBBIE MIRELES Rep #: [id number] : 1935 F 89 From: Contreras Hernandez MD PCP: Dr. Martina Lal DO Status: RE G CLI Study:Abdomen without IV Contrast Date of Exa m: 10/07/24 Exam# [id number] Ordering Dr: Saul Lal DO PROCEDURE: ABDOMEN [...] abdominal wall fat containing hernia. Reading Location: [facility] CC: Dr. Martina Lal DO ~ High Pressure Cleaner: Signed [facility]01-20-2025 Evaluation note* Diagnosis Onset Date Resolution Status Admit Date Left carotid artery stenosis chronic August 09, 2024 3:33pm HLD (hyperlipidemia) acute 2024 12:48pm (HFpEF) heart failure with preserved ejection fraction chronic [place] 2024 12:48pm Hypertension chronic July 12:48pm Left carotid artery stenosis chronic August 17, 2024 12:48pm ABDI (obstructive sleep apnea) chroni c August 17, 2024 12:48pm [facility] Work Phone: 1(826) 183-849611-21-2022 Instructions* Name Dates Details Patient Instructions Start:10-Jun-2022 Instruction Type:Provider Instructions for Treatment How to Access Health Informa tion Online using Patient Portal and 3rd [employer] Apps Start:10-Jun-2022 Instruction Type:Patient Education Patient Instructions Start:10-May-2022 Instruction Type:Provider Instructions for Treatment How to Access Health Informa tion Online using Patient Portal and [employer]rd [employer] Apps Start:10-May-2022 Instruction Type:Patient Education Patient Instructions Indication:Nonsmoker Start:14-Mar-2022 Instruction Type:Provider Instructions for Treatment How to Access Health Informa tion Online using Patient Portal and [employer]rd [employer] Apps Indication:Nonsmoker Start:14-Mar-2022 Instruction Type:Patient Education Patient Instructions Indication:Nonsmoker Start:07-Mar-2022 Instruction Type:Provider Instructions for Treatment How to Access Health Informa tion Online using Patient Portal and [employer]rd [employer] Apps Indication:Nonsmoker Start:07-Mar-2022 Instruction Type:Patient Education Patient Instructions Indication:Morbid obesity Start:18-Feb-2022 Instruction Type:Provider Instructions for Treatment How to Access Health Informa tion Online using Patient Portal and [employer]rd [employer] Apps Indication:Morbid obesity Start:18-Feb-2022 Instruction Type:Patient Education Patient Instructions Indication:Morbid obesity Start:31-Dec-2021 Instruction Type:Provider Instructions for Treatment How to Access Health Informa tion Online using Patient Portal and [employer]rd [employer] Apps Indication:Morbid obesity Start:31-Dec-2021 Instruction Type:Patient Education Patient Instructions Indication:BMI 40.0-44.9, adult Start:17-Oct-2021 Instruction Type:Provider Instructions for Treatment How to Access Health Informa tion Online using Patient Portal and [employer]rd [employer] Apps Indication:BMI 40.0-44.9, adult Start:17-Oct-2021 Instruction Type:Patient Education Patient Instructions Indication:BMI 40.0-44.9, adult Start:10-Oct-2021 Instruction Type:Provider Instructions for Treatment How to Access Health Informa tion Online using Patient Portal and [employer]rd [employer] Apps Indication:BMI 40.0-44.9, adult Start:10-Oct-2021 Instruction Type:Patient Education Patient Instructions Indication:Cellulitis Start:03-Oct-2021 Instruction Type:Provider Instructions for Treatment Patient Instructions Indication:BMI 40.0-44.9, adult Start:26-Sep-2021 Instruction Type:Provider Instructions for Treatment How to Access Health Informa tion Online using Patient Portal and [employer]rd [employer] Apps Indication:BMI 40.0-44.9, adult Start:26-Sep-2021 Instruction Type:Patient Education Patient Instructions Indication:Nonsmoker Start:10-Aug-2021 Instruction Type:Provider Instructions for Treatment How to Access Health Informa tion Online using Patient Portal and [employer]rd [employer] Apps Indication:Hypertension Start:10-Aug-2021 Instruction Type:Patient Education Patient Instructions Indication:BMI 40.0-44.9, adult Start:09-Aug-2021 Instruction Type:Provider Instructions for Treatment How to Access Health Informa tion Online using Patient Portal and [employer]rd [employer] Apps Indication:BMI 40.0-44.9, adult Start:09-Aug-2021 Instruction Type:Patient Education Patient Instructions Indication:Nonsmoker Start:28-May-2021 Instruction Type:Provider Instructions for Treatment How to Access Health Informa tion Online using Patient Portal and [employer]rd [employer] Apps Indication:Nonsmoker Start:28-May-2021 Instruction Type:Patient Education Patient Instructions Indication:BMI 40.0-44.9, adult Start:04-Apr-2021 Instruction Type:Provider Instructions for Treatment How to Access Health Informa tion Online using Patient Portal and [employer]rd [employer] Apps Indication:BMI 40.0-44.9, adult Start:04-Apr-2021 Instruction Type:Patient Education Patient Instructions Indication:BMI 40.0-44.9, adult Start:20-Mar-2021 Instruction Type:Provider Instructions for Treatment How to Access Health Informa tion Online using Patient Portal and [employer]rd [employer] Apps Indication:BMI 40.0-44.9, adult Start:20-Mar-2021 Instruction Type:Patient Education Patient Instructions Indication:Type 2 diabetes mellitus Start:13-Dec-2020 Instruction Type:Provider Instructions for Treatment How to Access Health Informa tion Online using Patient Portal and [employer]rd [employer] Apps Indication:Type 2 diabetes mellitus Start:13-Dec-2020 Instruction Type:Patient Education Patient Instructions Indication:Type 2 diabetes mellitus Start:15-Sep-2020 Instruction Type:Provider Instructions for Treatment How to Access Health Informa tion Online using Patient Portal and [employer] Apps Indication:Type 2 diabetes mellitus Start:15-Sep-2020 Instruction Type:Patient Education [facility] Work Phone: 1(595) 844-283609-08-2021 NotePatient Outreach (NETNAV) DEBBIE MIRELES ([id number]) 1935 F Date Time Provider Department 03/28/21 CELIO GALEANO During your visit today, we recorded the following information about you: Celio Galeano MA 03/28/2021 10:29 AM Signed POPULATION HEALTH NAVIGATION OUTREACH Action/FYI Patient is on [facility] list for below gaps : I77.9 - Carotid arterial disease (HCC) - [id number] Last Billed 04/12/2020 patient also due for [...] condition Payer: Payor: [employer] MEDICARE / Plan: [employer] PLUS / Product Type: HMO / Allergies As of Date: 03/28/2021 Noted Allergy Reaction DEMEROL (MEPERIDINE (PF)) 07/11/2005 1 - Mental Status Change LEVAQUIN (LEVOFLOXACIN) 08/11/2014 8 - GI Upset MORPHINE 01/28/2018 11 - Vomiting Date Reviewed: 12/14/2019 Reviewed by: Shannon Sona Ma - Fully Assessed Reason for Visit: Population Health Navigation Outreach [[id number]] Cmt: [facility] Prescriptions as of 03/28/2021 - nateglinide [...] PRESCRIPTION Artery Cleanse - COMPOUNDED PRESCRIPTION [place] Healthy heart/arteries - OMEGA 2-VRD-QIM-OTHER OM3-D3 ORAL Take by mouth. - aspirin, [...] neurop*08/16/2019 Encounter Status:Closed by CELIO GALEANO on 03/28/21[facility] 03-28-2021 NoteHNO ID: [id number] Author: Celio Galeano MA Service: ? Author Type: [place] Type: Progress Notes Filed: 03/28/2021 10:29 AM Note Text: POPULATION HEALTH NAVIGATION OUTREACH Action/FYI Patient is on HCC list for below gaps : I77.9 - Carotid arterial disease (HCC) - [id number] Last Billed 04/12/2020 patient also due for [...] Outreach HCC or suspected condition Payer: Payor: [employer] MEDICARE / Plan: [employer] GOLD PLUS / Product Type: HMO /[facility]02-04-2021 NoteHNO ID: [id number] Author: Philip Kumar Service: ? Author Type: [...] PRESCRIPTION Artery Cleanse - COMPOUNDED PRESCRIPTION [place] Healthy heart/arteries - OMEGA 4-MJG-PRX-OTHER OM3-D3 ORAL Take by mouth. - aspirin, [...] Bilateral 12 - COLONOSCOP W/ OR W/O [facility] SPEC 03/26/02 Colonoscopy - COLONOSCOP W/ OR W/O [facility] SPEC 05/18/2008 Colonoscopy - COLONOSCOP W/ OR W/O [facility] SPEC 01/13/14 Colonoscopy - REMOVAL GALLBLADDER [...] patient in detail. (more content not included)... [facility] information available [facility] Work Phone: evaluation note* Diagnosis Onset Date Resolution Status BMI 40.0-44.9, adult acute ABDI (obstructive sleep apnea) acute [facility] Work Phone: evaluation note* Diagnosis Onset Date Resolution Status Recurrent incisional hernia with incarceration acute Right flank pain acute [facility] Work Phone: evaluation note* Diagnosis Onset Date Resolution Status Recurrent incisional hernia with incarceration acute Right flank pain acute Abnormal ultrasound of breast acute [facility] Work Phone: evaluation note* Diagnosis Onset Date Resolution Status Recurrent incisional hernia with incarceration acute Right flank pain acute Abnormal ultrasound of breast acute Breast cancer, right breast 2021 acute [facility] Work Phone: evaluation note* Diagnosis Onset Date Resolution Status Recurrent incisional hernia with incarceration acute Right flank pain acute Abnormal ultrasound of breast acute Breast cancer, right breast 2021 acute Seroma, postoperative acute [facility] Work Phone: Evaluation note* Diagnosis Onset Date Resolution Status Recurrent incisional hernia with incarceration acute Right flank pain acute Abnormal ultrasound of breast acute Breast cancer, right breast 2021 acute Seroma, postoperative acute Seroma, postoperative acute Abnormal urinalysis acute Cellulitis of breast acute Hypertensive urgency acute Leukocytosis acute Seroma, postoperative acute [facility] Work Phone: evaluation note* Diagnosis Onset [...] (congestive heart failure) acute Hypoxemia acute Hypertension [facility] Work Phone: Evaluation note* Diagnosis Onset [...] breast resolve d Seroma, postoperative resolv ed [facility] Work Phone: Evaluation note* Diagnosis Onset [...] chronic Diastolic congestive heart failure acute Hypertension [facility] Work Phone: Evaluation note* Diagnosis Onset [...] breast 2021 acute Left adrenal mass chronic [facility] Work Phone: Evaluation note* Diagnosis Onset [...] for education acut e Left adrenal mass [facility] Work Phone: Evaluation note* Diagnosis Onset [...] blood pressure acute Nausea acute Shakiness acute [facility] Work Phone: Evaluation note* Diagnosis Onset [...] mass chronic MALATHI (acute kidney injury) [place] Bradycardia acute Diastolic congestive heart failure acute HLD (hyperlipidemia) acute Hypoxia acute [place] blood pressure acute Nausea acute Shakiness acute Uncontrolled hypertension [place] Chronic kidney disease, stage 3a chronic Hypertension chronic Bradycardia acute Diastolic congestive heart failure acute ABDI (obstructive sleep apnea) acute Bilateral carotid artery stenosis chronic Chronic kidney disease, stage 3a chronic Hypertension chronic Debility acute Hypercalcemia acute Left adrenal mass acute Prerenal azotemia acute Chronic kidney disease, stage 3a chronic [facility] Work Phone: Evaluation note* Diagnosis Onset [...] Bradycardia resolved MALATHI (acute kidney injury) [place] Debility acute FTT (failure to thrive) in adult acute Hypercalcemia acute [place] blood pressure acute Left adrenal mass acute Nocturnal hypoxia acute Prerenal azotemia acute [facility] Work Phone: Evaluation note* Diagnosis Onset [...] adult acute ABDI (obstructive sleep apnea) acute [facility] Work Phone: Evaluation note* Diagnosis Onset [...] adult acute ABDI (obstructive sleep apnea) acute [facility] Work Phone: Evaluation note* Diagnosis Onset [...] adult acute ABDI (obstructive sleep apnea) acute [facility] Work Phone: Evaluation note* Diagnosis Onset Date Resolution Status Left adrenal mass chronic ABDI (obstructive sleep apnea) acute Bilateral carotid artery stenosis chronic BMI 40.0-44.9, adult acute ABDI (obstructive sleep apnea) acute [facility] Work Phone: Evaluation note* Diagnosis Onset Date Resolution Status (HFpEF) heart failure with preserved ejection fraction chronic Bilateral carotid artery stenosis chronic Diabetes mellitus chronic Hypertension chronic [facility] Work Phone: Evaluation note* Diagnosis Onset Date Resolution Status (HFpEF) heart failure with preserved ejection fraction chronic Bilateral carotid artery stenosis chronic Diabetes mellitus chronic Hypertension chronic Left carotid artery stenosis acute [facility] Work Phone: Evaluation note* Diagnosis Onset Date Resolution Status Left carotid artery stenosis acute Obesity chronic ABDI (obstructive sleep apnea) chronic [facility] Work Phone: Evaluation note* Diagnosis Onset Date Resolution Status Obesity chronic ABDI (obstructive sleep apnea) [facility] Work Phone: Evaluation note* Diagnosis Onset Date Resolution Status (HFpEF) heart failure with preserved ejection fraction chronic Bilateral carotid artery stenosis chronic Bradycardia chronic Diabetes mellitus chronic Hypertension chronic [facility] Work Phone: Evaluation note* Diagnosis Onset [...] adult acute ABDI (obstructive sleep apnea) acute [facility] Work Phone: Evaluation note* Diagnosis Onset [...] apnea) chroni c December 16, 2024 1:29pm [facility] Work Phone: Hospital Discharge instructionsAmbulatory Orders* Oncology Location: None Selected [facility] Work Phone: Hospital Discharge instructionsAmbulatory Orders* Radiation Oncology Location: None Selected [facility] Work Phone: Instructxerp* Name Dates Details Patient Instructions Indication:Type 2 diabetes mellitus Start:15-Sep-2020 Instruction Type:Provider Instructions for Treatment How to Access Health Informa tion Online using Patient Portal and [employer]rd [employer] Apps Indication:Type 2 diabetes mellitus Start:15-Sep-2020 Instruction Type:Patient Education [facility]; [facility] Work Phone: instructions* Name Dates Details Patient Instructions Indication:Type 2 diabetes mellitus Start:15-Sep-2020 Instruction Type:Provider Instructions for Treatment How to Access Health Informa tion Online using Patient Portal and [employer] Apps Indication:Type 2 diabetes mellitus Start:15-Sep-2020 Instruction Type:Patient Education [facility]; [facility] Work Phone: instructions* Name Dates Details Patient Instructions Indication:Type 2 diabetes mellitus Start:13-Dec-2020 Instruction Type:Provider Instructions for Treatment How to Access Health Informa tion Online using Patient Portal and [employer]rd [employer] Apps Indication:Type 2 diabetes mellitus Start:13-Dec-2020 Instruction Type:Patient Education Patient Instructions Indication:Type 2 diabetes mellitus Start:15-Sep-2020 Instruction Type:Provider Instructions for Treatment How to Access Health Informa tion Online using Patient Portal and [employer]rd [employer] Apps Indication:Type 2 diabetes mellitus Start:15-Sep-2020 Instruction Type:Patient Education [facility]; [facility] Work Phone: instructions* Name Dates Details Patient Instructions Indication:Type 2 diabetes mellitus Start:13-Dec-2020 Instruction Type:Provider Instructions for Treatment How to Access Health Informa tion Online using Patient Portal and [employer]rd [employer] Apps Indication:Type 2 diabetes mellitus Start:13-Dec-2020 Instruction Type:Patient Education Patient Instructions Indication:Type 2 diabetes mellitus Start:15-Sep-2020 Instruction Type:Provider Instructions for Treatment How to Access Health Informa tion Online using Patient Portal and [employer]rd [employer] Apps Indication:Type 2 diabetes mellitus Start:15-Sep-2020 Instruction Type:Patient Education [facility]; [facility] Work Phone: instructions* Name Dates Details Patient Instructions Indication:Nonsmoker Start:28-May-2021 Instruction Type:Provider Instructions for Treatment How to Access Health Informa tion Online using Patient Portal and [employer]rd [employer] Apps Indication:Nonsmoker Start:28-May-2021 Instruction Type:Patient Education Patient Instructions Indication:BMI 40.0-44.9, adult Start:04-Apr-2021 Instruction Type:Provider Instructions for Treatment How to Access Health Informa tion Online using Patient Portal and [employer]rd [employer] Apps Indication:BMI 40.0-44.9, adult Start:04-Apr-2021 Instruction Type:Patient Education Patient Instructions Indication:BMI 40.0-44.9, adult Start:20-Mar-2021 Instruction Type:Provider Instructions for Treatment How to Access Health Informa tion Online using Patient Portal and [employer]rd [employer] Apps Indication:BMI 40.0-44.9, adult Start:20-Mar-2021 Instruction Type:Patient Education Patient Instructions Indication:Type 2 diabetes mellitus Start:13-Dec-2020 Instruction Type:Provider Instructions for Treatment How to Access Health Informa tion Online using Patient Portal and [employer]rd [employer] Apps Indication:Type 2 diabetes mellitus Start:13-Dec-2020 Instruction Type:Patient Education Patient Instructions Indication:Type 2 diabetes mellitus Start:15-Sep-2020 Instruction Type:Provider Instructions for Treatment How to Access Health Informa tion Online using Patient Portal and [employer] Apps Indication:Type 2 diabetes mellitus Start:15-Sep-2020 Instruction Type:Patient Education [facility]; [facility] Work Phone: instructions* Name Dates Details Patient Instructions Indication:BMI 40.0-44.9, adult Start:09-Aug-2021 Instruction Type:Provider Instructions for Treatment How to Access Health Informa tion Online using Patient Portal and [employer] Apps Indication:BMI 40.0-44.9, adult Start:09-Aug-2021 Instruction Type:Patient Education Patient Instructions Indication:Nonsmoker Start:28-May-2021 Instruction Type:Provider Instructions for Treatment How to Access Health Informa tion Online using Patient Portal and [employer] Apps Indication:Nonsmoker Start:28-May-2021 Instruction Type:Patient Education Patient Instructions Indication:BMI 40.0-44.9, adult Start:04-Apr-2021 Instruction Type:Provider Instructions for Treatment How to Access Health Informa tion Online using Patient Portal and [employer] Apps Indication:BMI 40.0-44.9, adult Start:04-Apr-2021 Instruction Type:Patient Education Patient Instructions Indication:BMI 40.0-44.9, adult Start:20-Mar-2021 Instruction Type:Provider Instructions for Treatment How to Access Health Informa tion Online using Patient Portal and [employer] Apps Indication:BMI 40.0-44.9, adult Start:20-Mar-2021 Instruction Type:Patient Education Patient Instructions Indication:Type 2 diabetes mellitus Start:13-Dec-2020 Instruction Type:Provider Instructions for Treatment How to Access Health Informa tion Online using Patient Portal and [employer] Apps Indication:Type 2 diabetes mellitus Start:13-Dec-2020 Instruction Type:Patient Education Patient Instructions Indication:Type 2 diabetes mellitus Start:15-Sep-2020 Instruction Type:Provider Instructions for Treatment How to Access Health Informa tion Online using Patient Portal and [employer] Apps Indication:Type 2 diabetes mellitus Start:15-Sep-2020 Instruction Type:Patient Education [facility]; [facility] Medicine Work Phone: Instructions* Name Dates Details Patient Instructions Indication:BMI 40.0-44.9, adult Start:09-Aug-2021 Instruction Type:Provider Instructions for Treatment How to Access Health Informa tion Online using Patient Portal and [employer] Apps Indication:BMI 40.0-44.9, adult Start:09-Aug-2021 Instruction Type:Patient Education Patient Instructions Indication:Nonsmoker Start:28-May-2021 Instruction Type:Provider Instructions for Treatment How to Access Health Informa tion Online using Patient Portal and [employer]rd [employer] Apps Indication:Nonsmoker Start:28-May-2021 Instruction Type:Patient Education Patient Instructions Indication:BMI 40.0-44.9, adult Start:04-Apr-2021 Instruction Type:Provider Instructions for Treatment How to Access Health Informa tion Online using Patient Portal and [employer] Apps Indication:BMI 40.0-44.9, adult Start:04-Apr-2021 Instruction Type:Patient Education Patient Instructions Indication:BMI 40.0-44.9, adult Start:20-Mar-2021 Instruction Type:Provider Instructions for Treatment How to Access Health Informa tion Online using Patient Portal and [employer]rd [employer] Apps Indication:BMI 40.0-44.9, adult Start:20-Mar-2021 Instruction Type:Patient Education Patient Instructions Indication:Type 2 diabetes mellitus Start:13-Dec-2020 Instruction Type:Provider Instructions for Treatment How to Access Health Informa tion Online using Patient Portal and [employer]rd [employer] Apps Indication:Type 2 diabetes mellitus Start:13-Dec-2020 Instruction Type:Patient Education Patient Instructions Indication:Type 2 diabetes mellitus Start:15-Sep-2020 Instruction Type:Provider Instructions for Treatment How to Access Health Informa tion Online using Patient Portal and [employer]rd [employer] Apps Indication:Type 2 diabetes mellitus Start:15-Sep-2020 Instruction Type:Patient Education [facility]; [facility] Work Phone: Instructions* Name Dates Details Patient Instructions Indication:Nonsmoker Start:10-Aug-2021 Instruction Type:Provider Instructions for Treatment How to Access Health Informa tion Online using Patient Portal and [employer] Apps Indication:Hypertension Start:10-Aug-2021 Instruction Type:Patient Education Patient Instructions Indication:BMI 40.0-44.9, adult Start:09-Aug-2021 Instruction Type:Provider Instructions for Treatment How to Access Health Informa tion Online using Patient Portal and [employer] Apps Indication:BMI 40.0-44.9, adult Start:09-Aug-2021 Instruction Type:Patient Education Patient Instructions Indication:Nonsmoker Start:28-May-2021 Instruction Type:Provider Instructions for Treatment How to Access Health Informa tion Online using Patient Portal and [employer] Apps Indication:Nonsmoker Start:28-May-2021 Instruction Type:Patient Education Patient Instructions Indication:BMI 40.0-44.9, adult Start:04-Apr-2021 Instruction Type:Provider Instructions for Treatment How to Access Health Informa tion Online using Patient Portal and [employer] Apps Indication:BMI 40.0-44.9, adult Start:04-Apr-2021 Instruction Type:Patient Education Patient Instructions Indication:BMI 40.0-44.9, adult Start:20-Mar-2021 Instruction Type:Provider Instructions for Treatment How to Access Health Informa tion Online using Patient Portal and [employer] Apps Indication:BMI 40.0-44.9, adult Start:20-Mar-2021 Instruction Type:Patient Education Patient Instructions Indication:Type 2 diabetes mellitus Start:13-Dec-2020 Instruction Type:Provider Instructions for Treatment How to Access Health Informa tion Online using Patient Portal and [employer] Apps Indication:Type 2 diabetes mellitus Start:13-Dec-2020 Instruction Type:Patient Education Patient Instructions Indication:Type 2 diabetes mellitus Start:15-Sep-2020 Instruction Type:Provider Instructions for Treatment How to Access Health Informa tion Online using Patient Portal and [employer] Apps Indication:Type 2 diabetes mellitus Start:15-Sep-2020 Instruction Type:Patient Education [facility]; [facility] Work Phone: Instructions* Name Dates Details Patient Instructions Indication:Nonsmoker Start:10-Aug-2021 Instruction Type:Provider Instructions for Treatment How to Access Health Informa tion Online using Patient Portal and [employer] Apps Indication:Hypertension Start:10-Aug-2021 Instruction Type:Patient Education Patient Instructions Indication:BMI 40.0-44.9, adult Start:09-Aug-2021 Instruction Type:Provider Instructions for Treatment How to Access Health Informa tion Online using Patient Portal and [employer] Apps Indication:BMI 40.0-44.9, adult Start:09-Aug-2021 Instruction Type:Patient Education Patient Instructions Indication:Nonsmoker Start:28-May-2021 Instruction Type:Provider Instructions for Treatment How to Access Health Informa tion Online using Patient Portal and [employer] Apps Indication:Nonsmoker Start:28-May-2021 Instruction Type:Patient Education Patient Instructions Indication:BMI 40.0-44.9, adult Start:04-Apr-2021 Instruction Type:Provider Instructions for Treatment How to Access Health Informa tion Online using Patient Portal and [employer] Apps Indication:BMI 40.0-44.9, adult Start:04-Apr-2021 Instruction Type:Patient Education Patient Instructions Indication:BMI 40.0-44.9, adult Start:20-Mar-2021 Instruction Type:Provider Instructions for Treatment How to Access Health Informa tion Online using Patient Portal and [employer] Apps Indication:BMI 40.0-44.9, adult Start:20-Mar-2021 Instruction Type:Patient Education Patient Instructions Indication:Type 2 diabetes mellitus Start:13-Dec-2020 Instruction Type:Provider Instructions for Treatment How to Access Health Informa tion Online using Patient Portal and [employer] Apps Indication:Type 2 diabetes mellitus Start:13-Dec-2020 Instruction Type:Patient Education Patient Instructions Indication:Type 2 diabetes mellitus Start:15-Sep-2020 Instruction Type:Provider Instructions for Treatment How to Access Health Informa tion Online using Patient Portal and [employer] Apps Indication:Type 2 diabetes mellitus Start:15-Sep-2020 Instruction Type:Patient Education [facility]; [facility] Work Phone: Instructions* Name Dates Details Patient Instructions Indication:BMI 40.0-44.9, adult Start:26-Sep-2021 Instruction Type:Provider Instructions for Treatment How to Access Health Informa tion Online using Patient Portal and [employer] Apps Indication:BMI 40.0-44.9, adult Start:26-Sep-2021 Instruction Type:Patient Education Patient Instructions Indication:Nonsmoker Start:10-Aug-2021 Instruction Type:Provider Instructions for Treatment How to Access Health Informa tion Online using Patient Portal and [employer] Apps Indication:Hypertension Start:10-Aug-2021 Instruction Type:Patient Education Patient Instructions Indication:BMI 40.0-44.9, adult Start:09-Aug-2021 Instruction Type:Provider Instructions for Treatment How to Access Health Informa tion Online using Patient Portal and [employer] Apps Indication:BMI 40.0-44.9, adult Start:09-Aug-2021 Instruction Type:Patient Education Patient Instructions Indication:Nonsmoker Start:28-May-2021 Instruction Type:Provider Instructions for Treatment How to Access Health Informa tion Online using Patient Portal and [employer] Apps Indication:Nonsmoker Start:28-May-2021 Instruction Type:Patient Education Patient Instructions Indication:BMI 40.0-44.9, adult Start:04-Apr-2021 Instruction Type:Provider Instructions for Treatment How to Access Health Informa tion Online using Patient Portal and [employer] Apps Indication:BMI 40.0-44.9, adult Start:04-Apr-2021 Instruction Type:Patient Education Patient Instructions Indication:BMI 40.0-44.9, adult Start:20-Mar-2021 Instruction Type:Provider Instructions for Treatment How to Access Health Informa tion Online using Patient Portal and [employer] Apps Indication:BMI 40.0-44.9, adult Start:20-Mar-2021 Instruction Type:Patient Education Patient Instructions Indication:Type 2 diabetes mellitus Start:13-Dec-2020 Instruction Type:Provider Instructions for Treatment How to Access Health Informa tion Online using Patient Portal and [employer] Apps Indication:Type 2 diabetes mellitus Start:13-Dec-2020 Instruction Type:Patient Education Patient Instructions Indication:Type 2 diabetes mellitus Start:15-Sep-2020 Instruction Type:Provider Instructions for Treatment How to Access Health Informa tion Online using Patient Portal and [employer] Apps Indication:Type 2 diabetes mellitus Start:15-Sep-2020 Instruction Type:Patient Education [facility]; [facility] Work Phone: Instructions* Name Dates Details Patient Instructions Indication:BMI 40.0-44.9, adult Start:26-Sep-2021 Instruction Type:Provider Instructions for Treatment How to Access Health Informa tion Online using Patient Portal and [employer] Apps Indication:BMI 40.0-44.9, adult Start:26-Sep-2021 Instruction Type:Patient Education Patient Instructions Indication:Nonsmoker Start:10-Aug-2021 Instruction Type:Provider Instructions for Treatment How to Access Health Informa tion Online using Patient Portal and [employer] Apps Indication:Hypertension Start:10-Aug-2021 Instruction Type:Patient Education Patient Instructions Indication:BMI 40.0-44.9, adult Start:09-Aug-2021 Instruction Type:Provider Instructions for Treatment How to Access Health Informa tion Online using Patient Portal and [employer] Apps Indication:BMI 40.0-44.9, adult Start:09-Aug-2021 Instruction Type:Patient Education Patient Instructions Indication:Nonsmoker Start:28-May-2021 Instruction Type:Provider Instructions for Treatment How to Access Health Informa tion Online using Patient Portal and [employer] Apps Indication:Nonsmoker Start:28-May-2021 Instruction Type:Patient Education Patient Instructions Indication:BMI 40.0-44.9, adult Start:04-Apr-2021 Instruction Type:Provider Instructions for Treatment How to Access Health Informa tion Online using Patient Portal and [employer] Apps Indication:BMI 40.0-44.9, adult Start:04-Apr-2021 Instruction Type:Patient Education Patient Instructions Indication:BMI 40.0-44.9, adult Start:20-Mar-2021 Instruction Type:Provider Instructions for Treatment How to Access Health Informa tion Online using Patient Portal and [employer] Apps Indication:BMI 40.0-44.9, adult Start:20-Mar-2021 Instruction Type:Patient Education Patient Instructions Indication:Type 2 diabetes mellitus Start:13-Dec-2020 Instruction Type:Provider Instructions for Treatment How to Access Health Informa tion Online using Patient Portal and [employer] Apps Indication:Type 2 diabetes mellitus Start:13-Dec-2020 Instruction Type:Patient Education Patient Instructions Indication:Type 2 diabetes mellitus Start:15-Sep-2020 Instruction Type:Provider Instructions for Treatment How to Access Health Informa tion Online using Patient Portal and [employer] Apps Indication:Type 2 diabetes mellitus Start:15-Sep-2020 Instruction Type:Patient Education [facility]; [facility] Work Phone: Instructions* Name Dates Details Patient Instructions Indication:BMI 40.0-44.9, adult Start:17-Oct-2021 Instruction Type:Provider Instructions for Treatment How to Access Health Informa tion Online using Patient Portal and [employer] Apps Indication:BMI 40.0-44.9, adult Start:17-Oct-2021 Instruction Type:Patient Education Patient Instructions Indication:BMI 40.0-44.9, adult Start:10-Oct-2021 Instruction Type:Provider Instructions for Treatment How to Access Health Informa tion Online using Patient Portal and [employer] Apps Indication:BMI 40.0-44.9, adult Start:10-Oct-2021 Instruction Type:Patient Education Patient Instructions Indication:Cellulitis Start:03-Oct-2021 Instruction Type:Provider Instructions for Treatment Patient Instructions Indication:BMI 40.0-44.9, adult Start:26-Sep-2021 Instruction Type:Provider Instructions for Treatment How to Access Health Informa tion Online using Patient Portal and [employer] Apps Indication:BMI 40.0-44.9, adult Start:26-Sep-2021 Instruction Type:Patient Education Patient Instructions Indication:Nonsmoker Start:10-Aug-2021 Instruction Type:Provider Instructions for Treatment How to Access Health Informa tion Online using Patient Portal and [employer] Apps Indication:Hypertension Start:10-Aug-2021 Instruction Type:Patient Education Patient Instructions Indication:BMI 40.0-44.9, adult Start:09-Aug-2021 Instruction Type:Provider Instructions for Treatment How to Access Health Informa tion Online using Patient Portal and [employer] Apps Indication:BMI 40.0-44.9, adult Start:09-Aug-2021 Instruction Type:Patient Education Patient Instructions Indication:Nonsmoker Start:28-May-2021 Instruction Type:Provider Instructions for Treatment How to Access Health Informa tion Online using Patient Portal and [employer] Apps Indication:Nonsmoker Start:28-May-2021 Instruction Type:Patient Education Patient Instructions Indication:BMI 40.0-44.9, adult Start:04-Apr-2021 Instruction Type:Provider Instructions for Treatment How to Access Health Informa tion Online using Patient Portal and [employer] Apps Indication:BMI 40.0-44.9, adult Start:04-Apr-2021 Instruction Type:Patient Education Patient Instructions Indication:BMI 40.0-44.9, adult Start:20-Mar-2021 Instruction Type:Provider Instructions for Treatment How to Access Health Informa tion Online using Patient Portal and [employer] Apps Indication:BMI 40.0-44.9, adult Start:20-Mar-2021 Instruction Type:Patient Education Patient Instructions Indication:Type 2 diabetes mellitus Start:13-Dec-2020 Instruction Type:Provider Instructions for Treatment How to Access Health Informa tion Online using Patient Portal and [employer] Apps Indication:Type 2 diabetes mellitus Start:13-Dec-2020 Instruction Type:Patient Education Patient Instructions Indication:Type 2 diabetes mellitus Start:15-Sep-2020 Instruction Type:Provider Instructions for Treatment How to Access Health Informa tion Online using Patient Portal and [employer] Apps Indication:Type 2 diabetes mellitus Start:15-Sep-2020 Instruction Type:Patient Education [facility]; [facility] Work Phone: Instructions* Name Dates Details Patient Instructions Indication:BMI 40.0-44.9, adult Start:17-Oct-2021 Instruction Type:Provider Instructions for Treatment How to Access Health Informa tion Online using Patient Portal and [employer] Apps Indication:BMI 40.0-44.9, adult Start:17-Oct-2021 Instruction Type:Patient Education Patient Instructions Indication:BMI 40.0-44.9, adult Start:10-Oct-2021 Instruction Type:Provider Instructions for Treatment How to Access Health Informa tion Online using Patient Portal and [employer] Apps Indication:BMI 40.0-44.9, adult Start:10-Oct-2021 Instruction Type:Patient Education Patient Instructions Indication:Cellulitis Start:03-Oct-2021 Instruction Type:Provider Instructions for Treatment Patient Instructions Indication:BMI 40.0-44.9, adult Start:26-Sep-2021 Instruction Type:Provider Instructions for Treatment How to Access Health Informa tion Online using Patient Portal and [employer] Apps Indication:BMI 40.0-44.9, adult Start:26-Sep-2021 Instruction Type:Patient Education Patient Instructions Indication:Nonsmoker Start:10-Aug-2021 Instruction Type:Provider Instructions for Treatment How to Access Health Informa tion Online using Patient Portal and [employer] Apps Indication:Hypertension Start:10-Aug-2021 Instruction Type:Patient Education Patient Instructions Indication:BMI 40.0-44.9, adult Start:09-Aug-2021 Instruction Type:Provider Instructions for Treatment How to Access Health Informa tion Online using Patient Portal and [employer] Apps Indication:BMI 40.0-44.9, adult Start:09-Aug-2021 Instruction Type:Patient Education Patient Instructions Indication:Nonsmoker Start:28-May-2021 Instruction Type:Provider Instructions for Treatment How to Access Health Informa tion Online using Patient Portal and [employer] Apps Indication:Nonsmoker Start:28-May-2021 Instruction Type:Patient Education Patient Instructions Indication:BMI 40.0-44.9, adult Start:04-Apr-2021 Instruction Type:Provider Instructions for Treatment How to Access Health Informa tion Online using Patient Portal and [employer] Apps Indication:BMI 40.0-44.9, adult Start:04-Apr-2021 Instruction Type:Patient Education Patient Instructions Indication:BMI 40.0-44.9, adult Start:20-Mar-2021 Instruction Type:Provider Instructions for Treatment How to Access Health Informa tion Online using Patient Portal and [employer] Apps Indication:BMI 40.0-44.9, adult Start:20-Mar-2021 Instruction Type:Patient Education Patient Instructions Indication:Type 2 diabetes mellitus Start:13-Dec-2020 Instruction Type:Provider Instructions for Treatment How to Access Health Informa tion Online using Patient Portal and [employer] Apps Indication:Type 2 diabetes mellitus Start:13-Dec-2020 Instruction Type:Patient Education Patient Instructions Indication:Type 2 diabetes mellitus Start:15-Sep-2020 Instruction Type:Provider Instructions for Treatment How to Access Health Informa tion Online using Patient Portal and [employer] Apps Indication:Type 2 diabetes mellitus Start:15-Sep-2020 Instruction Type:Patient Education [facility]; [facility] Work Phone: Instructions* Name Dates Details Patient Instructions Indication:BMI 40.0-44.9, adult Start:17-Oct-2021 Instruction Type:Provider Instructions for Treatment How to Access Health Informa tion Online using Patient Portal and [employer] Apps Indication:BMI 40.0-44.9, adult Start:17-Oct-2021 Instruction Type:Patient Education Patient Instructions Indication:BMI 40.0-44.9, adult Start:10-Oct-2021 Instruction Type:Provider Instructions for Treatment How to Access Health Informa tion Online using Patient Portal and [employer] Apps Indication:BMI 40.0-44.9, adult Start:10-Oct-2021 Instruction Type:Patient Education Patient Instructions Indication:Cellulitis Start:03-Oct-2021 Instruction Type:Provider Instructions for Treatment Patient Instructions Indication:BMI 40.0-44.9, adult Start:26-Sep-2021 Instruction Type:Provider Instructions for Treatment How to Access Health Informa tion Online using Patient Portal and [employer] Apps Indication:BMI 40.0-44.9, adult Start:26-Sep-2021 Instruction Type:Patient Education Patient Instructions Indication:Nonsmoker Start:10-Aug-2021 Instruction Type:Provider Instructions for Treatment How to Access Health Informa tion Online using Patient Portal and [employer] Apps Indication:Hypertension Start:10-Aug-2021 Instruction Type:Patient Education Patient Instructions Indication:BMI 40.0-44.9, adult Start:09-Aug-2021 Instruction Type:Provider Instructions for Treatment How to Access Health Informa tion Online using Patient Portal and [employer] Apps Indication:BMI 40.0-44.9, adult Start:09-Aug-2021 Instruction Type:Patient Education Patient Instructions Indication:Nonsmoker Start:28-May-2021 Instruction Type:Provider Instructions for Treatment How to Access Health Informa tion Online using Patient Portal and [employer] Apps Indication:Nonsmoker Start:28-May-2021 Instruction Type:Patient Education Patient Instructions Indication:BMI 40.0-44.9, adult Start:04-Apr-2021 Instruction Type:Provider Instructions for Treatment How to Access Health Informa tion Online using Patient Portal and [employer] Apps Indication:BMI 40.0-44.9, adult Start:04-Apr-2021 Instruction Type:Patient Education Patient Instructions Indication:BMI 40.0-44.9, adult Start:20-Mar-2021 Instruction Type:Provider Instructions for Treatment How to Access Health Informa tion Online using Patient Portal and [employer] Apps Indication:BMI 40.0-44.9, adult Start:20-Mar-2021 Instruction Type:Patient Education Patient Instructions Indication:Type 2 diabetes mellitus Start:13-Dec-2020 Instruction Type:Provider Instructions for Treatment How to Access Health Informa tion Online using Patient Portal and [employer] Apps Indication:Type 2 diabetes mellitus Start:13-Dec-2020 Instruction Type:Patient Education Patient Instructions Indication:Type 2 diabetes mellitus Start:15-Sep-2020 Instruction Type:Provider Instructions for Treatment How to Access Health Informa tion Online using Patient Portal and [employer] Apps Indication:Type 2 diabetes mellitus Start:15-Sep-2020 Instruction Type:Patient Education [facility]; [facility] Work Phone: Instructions* Name Dates Details Patient Instructions Indication:Morbid obesity Start:31-Dec-2021 Instruction Type:Provider Instructions for Treatment How to Access Health Informa tion Online using Patient Portal and [employer] Apps Indication:Morbid obesity Start:31-Dec-2021 Instruction Type:Patient Education Patient Instructions Indication:BMI 40.0-44.9, adult Start:17-Oct-2021 Instruction Type:Provider Instructions for Treatment How to Access Health Informa tion Online using Patient Portal and [employer] Apps Indication:BMI 40.0-44.9, adult Start:17-Oct-2021 Instruction Type:Patient Education Patient Instructions Indication:BMI 40.0-44.9, adult Start:10-Oct-2021 Instruction Type:Provider Instructions for Treatment How to Access Health Informa tion Online using Patient Portal and [employer] Indication:BMI 40.0-44.9, adult Start:10-Oct-2021 Instruction Type:Patient Education Patient Instructions Indication:Cellulitis Start:03-Oct-2021 Instruction Type:Provider Instructions for Treatment Patient Instructions Indication:BMI 40.0-44.9, adult Start:26-Sep-2021 Instruction Type:Provider Instructions for Treatment How to Access Health Informa tion Online using Patient Portal and [employer] Apps Indication:BMI 40.0-44.9, adult Start:26-Sep-2021 Instruction Type:Patient Education Patient Instructions Indication:Nonsmoker Start:10-Aug-2021 Instruction Type:Provider Instructions for Treatment How to Access Health Informa tion Online using Patient Portal and [employer] Apps Indication:Hypertension Start:10-Aug-2021 Instruction Type:Patient Education Patient Instructions Indication:BMI 40.0-44.9, adult Start:09-Aug-2021 Instruction Type:Provider Instructions for Treatment How to Access Health Informa tion Online using Patient Portal and [employer] Apps Indication:BMI 40.0-44.9, adult Start:09-Aug-2021 Instruction Type:Patient Education Patient Instructions Indication:Nonsmoker Start:28-May-2021 Instruction Type:Provider Instructions for Treatment How to Access Health Informa tion Online using Patient Portal and [employer] Apps Indication:Nonsmoker Start:28-May-2021 Instruction Type:Patient Education Patient Instructions Indication:BMI 40.0-44.9, adult Start:04-Apr-2021 Instruction Type:Provider Instructions for Treatment How to Access Health Informa tion Online using Patient Portal and [employer] Apps Indication:BMI 40.0-44.9, adult Start:04-Apr-2021 Instruction Type:Patient Education Patient Instructions Indication:BMI 40.0-44.9, adult Start:20-Mar-2021 Instruction Type:Provider Instructions for Treatment How to Access Health Informa tion Online using Patient Portal and [employer] Apps Indication:BMI 40.0-44.9, adult Start:20-Mar-2021 Instruction Type:Patient Education Patient Instructions Indication:Type 2 diabetes mellitus Start:13-Dec-2020 Instruction Type:Provider Instructions for Treatment How to Access Health Informa tion Online using Patient Portal and [employer] Apps Indication:Type 2 diabetes mellitus Start:13-Dec-2020 Instruction Type:Patient Education Patient Instructions Indication:Type 2 diabetes mellitus Start:15-Sep-2020 Instruction Type:Provider Instructions for Treatment How to Access Health Informa tion Online using Patient Portal and [employer] Apps Indication:Type 2 diabetes mellitus Start:15-Sep-2020 Instruction Type:Patient Education [facility] [facility]; [facility] Work Phone: Instructions* Name Dates Details Patient Instructions Indication:Morbid obesity Start:31-Dec-2021 Instruction Type:Provider Instructions for Treatment How to Access Health Informa tion Online using Patient Portal and [employer]rd [employer] Apps Indication:Morbid obesity Start:31-Dec-2021 Instruction Type:Patient Education Patient Instructions Indication:BMI 40.0-44.9, adult Start:17-Oct-2021 Instruction Type:Provider Instructions for Treatment How to Access Health Informa tion Online using Patient Portal and [employer]rd [employer] Apps Indication:BMI 40.0-44.9, adult Start:17-Oct-2021 Instruction Type:Patient Education Patient Instructions Indication:BMI 40.0-44.9, adult Start:10-Oct-2021 Instruction Type:Provider Instructions for Treatment How to Access Health Informa tion Online using Patient Portal and [employer]rd [employer] Apps Indication:BMI 40.0-44.9, adult Start:10-Oct-2021 Instruction Type:Patient Education Patient Instructions Indication:Cellulitis Start:03-Oct-2021 Instruction Type:Provider Instructions for Treatment Patient Instructions Indication:BMI 40.0-44.9, adult Start:26-Sep-2021 Instruction Type:Provider Instructions for Treatment How to Access Health Informa tion Online using Patient Portal and [employer]rd [employer] Apps Indication:BMI 40.0-44.9, adult Start:26-Sep-2021 Instruction Type:Patient Education Patient Instructions Indication:Nonsmoker Start:10-Aug-2021 Instruction Type:Provider Instructions for Treatment How to Access Health Informa tion Online using Patient Portal and [employer]rd [employer] Apps Indication:Hypertension Start:10-Aug-2021 Instruction Type:Patient Education Patient Instructions Indication:BMI 40.0-44.9, adult Start:09-Aug-2021 Instruction Type:Provider Instructions for Treatment How to Access Health Informa tion Online using Patient Portal and [employer]rd [employer] Apps Indication:BMI 40.0-44.9, adult Start:09-Aug-2021 Instruction Type:Patient Education Patient Instructions Indication:Nonsmoker Start:28-May-2021 Instruction Type:Provider Instructions for Treatment How to Access Health Informa tion Online using Patient Portal and [employer]rd [employer] Apps Indication:Nonsmoker Start:28-May-2021 Instruction Type:Patient Education Patient Instructions Indication:BMI 40.0-44.9, adult Start:04-Apr-2021 Instruction Type:Provider Instructions for Treatment How to Access Health Informa tion Online using Patient Portal and [employer]rd [employer] Apps Indication:BMI 40.0-44.9, adult Start:04-Apr-2021 Instruction Type:Patient Education Patient Instructions Indication:BMI 40.0-44.9, adult Start:20-Mar-2021 Instruction Type:Provider Instructions for Treatment How to Access Health Informa tion Online using Patient Portal and [employer]rd [employer] Apps Indication:BMI 40.0-44.9, adult Start:20-Mar-2021 Instruction Type:Patient Education Patient Instructions Indication:Type 2 diabetes mellitus Start:13-Dec-2020 Instruction Type:Provider Instructions for Treatment How to Access Health Informa tion Online using Patient Portal and [employer]rd [employer] Apps Indication:Type 2 diabetes mellitus Start:13-Dec-2020 Instruction Type:Patient Education Patient Instructions Indication:Type 2 diabetes mellitus Start:15-Sep-2020 Instruction Type:Provider Instructions for Treatment How to Access Health Informa tion Online using Patient Portal and [employer]rd [employer] Apps Indication:Type 2 diabetes mellitus Start:15-Sep-2020 Instruction Type:Patient Education [facility]; [facility] Work Phone: Instructions* Name Dates Details Patient Instructions Indication:Morbid obesity Start:18-Feb-2022 Instruction Type:Provider Instructions for Treatment How to Access Health Informa tion Online using Patient Portal and [employer]rd [employer] Apps Indication:Morbid obesity Start:18-Feb-2022 Instruction Type:Patient Education Patient Instructions Indication:Morbid obesity Start:31-Dec-2021 Instruction Type:Provider Instructions for Treatment How to Access Health Informa tion Online using Patient Portal and [employer]rd [employer] Apps Indication:Morbid obesity Start:31-Dec-2021 Instruction Type:Patient Education Patient Instructions Indication:BMI 40.0-44.9, adult Start:17-Oct-2021 Instruction Type:Provider Instructions for Treatment How to Access Health Informa tion Online using Patient Portal and [employer] Apps Indication:BMI 40.0-44.9, adult Start:17-Oct-2021 Instruction Type:Patient Education Patient Instructions Indication:BMI 40.0-44.9, adult Start:10-Oct-2021 Instruction Type:Provider Instructions for Treatment How to Access Health Informa tion Online using Patient Portal and [employer]rd [employer] Apps Indication:BMI 40.0-44.9, adult Start:10-Oct-2021 Instruction Type:Patient Education Patient Instructions Indication:Cellulitis Start:03-Oct-2021 Instruction Type:Provider Instructions for Treatment Patient Instructions Indication:BMI 40.0-44.9, adult Start:26-Sep-2021 Instruction Type:Provider Instructions for Treatment How to Access Health Informa tion Online using Patient Portal and [employer] Apps Indication:BMI 40.0-44.9, adult Start:26-Sep-2021 Instruction Type:Patient Education Patient Instructions Indication:Nonsmoker Start:10-Aug-2021 Instruction Type:Provider Instructions for Treatment How to Access Health Informa tion Online using Patient Portal and [employer] Apps Indication:Hypertension Start:10-Aug-2021 Instruction Type:Patient Education Patient Instructions Indication:BMI 40.0-44.9, adult Start:09-Aug-2021 Instruction Type:Provider Instructions for Treatment How to Access Health Informa tion Online using Patient Portal and [employer]rd [employer] Apps Indication:BMI 40.0-44.9, adult Start:09-Aug-2021 Instruction Type:Patient Education Patient Instructions Indication:Nonsmoker Start:28-May-2021 Instruction Type:Provider Instructions for Treatment How to Access Health Informa tion Online using Patient Portal and [employer]rd [employer] Apps Indication:Nonsmoker Start:28-May-2021 Instruction Type:Patient Education Patient Instructions Indication:BMI 40.0-44.9, adult Start:04-Apr-2021 Instruction Type:Provider Instructions for Treatment How to Access Health Informa tion Online using Patient Portal and [employer] Apps Indication:BMI 40.0-44.9, adult Start:04-Apr-2021 Instruction Type:Patient Education Patient Instructions Indication:BMI 40.0-44.9, adult Start:20-Mar-2021 Instruction Type:Provider Instructions for Treatment How to Access Health Informa tion Online using Patient Portal and [employer] Apps Indication:BMI 40.0-44.9, adult Start:20-Mar-2021 Instruction Type:Patient Education Patient Instructions Indication:Type 2 diabetes mellitus Start:13-Dec-2020 Instruction Type:Provider Instructions for Treatment How to Access Health Informa tion Online using Patient Portal and [employer] Apps Indication:Type 2 diabetes mellitus Start:13-Dec-2020 Instruction Type:Patient Education Patient Instructions Indication:Type 2 diabetes mellitus Start:15-Sep-2020 Instruction Type:Provider Instructions for Treatment How to Access Health Informa tion Online using Patient Portal and [employer]rd [employer] Apps Indication:Type 2 diabetes mellitus Start:15-Sep-2020 Instruction Type:Patient Education [facility]; [facility] Work Phone: Instructions* Name Dates Details Patient Instructions Indication:Morbid obesity Start:18-Feb-2022 Instruction Type:Provider Instructions for Treatment How to Access Health Informa tion Online using Patient Portal and [employer]rd [employer] Apps Indication:Morbid obesity Start:18-Feb-2022 Instruction Type:Patient Education Patient Instructions Indication:Morbid obesity Start:31-Dec-2021 Instruction Type:Provider Instructions for Treatment How to Access Health Informa tion Online using Patient Portal and [employer] Apps Indication:Morbid obesity Start:31-Dec-2021 Instruction Type:Patient Education Patient Instructions Indication:BMI 40.0-44.9, adult Start:17-Oct-2021 Instruction Type:Provider Instructions for Treatment How to Access Health Informa tion Online using Patient Portal and [employer] Apps Indication:BMI 40.0-44.9, adult Start:17-Oct-2021 Instruction Type:Patient Education Patient Instructions Indication:BMI 40.0-44.9, adult Start:10-Oct-2021 Instruction Type:Provider Instructions for Treatment How to Access Health Informa tion Online using Patient Portal and [employer] Apps Indication:BMI 40.0-44.9, adult Start:10-Oct-2021 Instruction Type:Patient Education Patient Instructions Indication:Cellulitis Start:03-Oct-2021 Instruction Type:Provider Instructions for Treatment Patient Instructions Indication:BMI 40.0-44.9, adult Start:26-Sep-2021 Instruction Type:Provider Instructions for Treatment How to Access Health Informa tion Online using Patient Portal and [employer] Apps Indication:BMI 40.0-44.9, adult Start:26-Sep-2021 Instruction Type:Patient Education Patient Instructions Indication:Nonsmoker Start:10-Aug-2021 Instruction Type:Provider Instructions for Treatment How to Access Health Informa tion Online using Patient Portal and [employer] Apps Indication:Hypertension Start:10-Aug-2021 Instruction Type:Patient Education Patient Instructions Indication:BMI 40.0-44.9, adult Start:09-Aug-2021 Instruction Type:Provider Instructions for Treatment How to Access Health Informa tion Online using Patient Portal and [employer] Apps Indication:BMI 40.0-44.9, adult Start:09-Aug-2021 Instruction Type:Patient Education Patient Instructions Indication:Nonsmoker Start:28-May-2021 Instruction Type:Provider Instructions for Treatment How to Access Health Informa tion Online using Patient Portal and [employer] Apps Indication:Nonsmoker Start:28-May-2021 Instruction Type:Patient Education Patient Instructions Indication:BMI 40.0-44.9, adult Start:04-Apr-2021 Instruction Type:Provider Instructions for Treatment How to Access Health Informa tion Online using Patient Portal and [employer] Apps Indication:BMI 40.0-44.9, adult Start:04-Apr-2021 Instruction Type:Patient Education Patient Instructions Indication:BMI 40.0-44.9, adult Start:20-Mar-2021 Instruction Type:Provider Instructions for Treatment How to Access Health Informa tion Online using Patient Portal and [employer] Apps Indication:BMI 40.0-44.9, adult Start:20-Mar-2021 Instruction Type:Patient Education Patient Instructions Indication:Type 2 diabetes mellitus Start:13-Dec-2020 Instruction Type:Provider Instructions for Treatment How to Access Health Informa tion Online using Patient Portal and [employer] Apps Indication:Type 2 diabetes mellitus Start:13-Dec-2020 Instruction Type:Patient Education Patient Instructions Indication:Type 2 diabetes mellitus Start:15-Sep-2020 Instruction Type:Provider Instructions for Treatment How to Access Health Informa tion Online using Patient Portal and [employer] Apps Indication:Type 2 diabetes mellitus Start:15-Sep-2020 Instruction Type:Patient Education [facility]; [facility] Work Phone: Instructions* Name Dates Details Patient Instructions Indication:Morbid obesity Start:18-Feb-2022 Instruction Type:Provider Instructions for Treatment How to Access Health Informa tion Online using Patient Portal and [employer] Apps Indication:Morbid obesity Start:18-Feb-2022 Instruction Type:Patient Education Patient Instructions Indication:Morbid obesity Start:31-Dec-2021 Instruction Type:Provider Instructions for Treatment How to Access Health Informa tion Online using Patient Portal and [employer] Apps Indication:Morbid obesity Start:31-Dec-2021 Instruction Type:Patient Education Patient Instructions Indication:BMI 40.0-44.9, adult Start:17-Oct-2021 Instruction Type:Provider Instructions for Treatment How to Access Health Informa tion Online using Patient Portal and [employer] Apps Indication:BMI 40.0-44.9, adult Start:17-Oct-2021 Instruction Type:Patient Education Patient Instructions Indication:BMI 40.0-44.9, adult Start:10-Oct-2021 Instruction Type:Provider Instructions for Treatment How to Access Health Informa tion Online using Patient Portal and [employer] Apps Indication:BMI 40.0-44.9, adult Start:10-Oct-2021 Instruction Type:Patient Education Patient Instructions Indication:Cellulitis Start:03-Oct-2021 Instruction Type:Provider Instructions for Treatment Patient Instructions Indication:BMI 40.0-44.9, adult Start:26-Sep-2021 Instruction Type:Provider Instructions for Treatment How to Access Health Informa tion Online using Patient Portal and [employer] Apps Indication:BMI 40.0-44.9, adult Start:26-Sep-2021 Instruction Type:Patient Education Patient Instructions Indication:Nonsmoker Start:10-Aug-2021 Instruction Type:Provider Instructions for Treatment How to Access Health Informa tion Online using Patient Portal and [employer] Apps Indication:Hypertension Start:10-Aug-2021 Instruction Type:Patient Education Patient Instructions Indication:BMI 40.0-44.9, adult Start:09-Aug-2021 Instruction Type:Provider Instructions for Treatment How to Access Health Informa tion Online using Patient Portal and [employer] Apps Indication:BMI 40.0-44.9, adult Start:09-Aug-2021 Instruction Type:Patient Education Patient Instructions Indication:Nonsmoker Start:28-May-2021 Instruction Type:Provider Instructions for Treatment How to Access Health Informa tion Online using Patient Portal and [employer] Apps Indication:Nonsmoker Start:28-May-2021 Instruction Type:Patient Education Patient Instructions Indication:BMI 40.0-44.9, adult Start:04-Apr-2021 Instruction Type:Provider Instructions for Treatment How to Access Health Informa tion Online using Patient Portal and [employer] Apps Indication:BMI 40.0-44.9, adult Start:04-Apr-2021 Instruction Type:Patient Education Patient Instructions Indication:BMI 40.0-44.9, adult Start:20-Mar-2021 Instruction Type:Provider Instructions for Treatment How to Access Health Informa tion Online using Patient Portal and [employer] Apps Indication:BMI 40.0-44.9, adult Start:20-Mar-2021 Instruction Type:Patient Education Patient Instructions Indication:Type 2 diabetes mellitus Start:13-Dec-2020 Instruction Type:Provider Instructions for Treatment How to Access Health Informa tion Online using Patient Portal and [employer] Apps Indication:Type 2 diabetes mellitus Start:13-Dec-2020 Instruction Type:Patient Education Patient Instructions Indication:Type 2 diabetes mellitus Start:15-Sep-2020 Instruction Type:Provider Instructions for Treatment How to Access Health Informa tion Online using Patient Portal and [employer] Apps Indication:Type 2 diabetes mellitus Start:15-Sep-2020 Instruction Type:Patient Education [facility]; [facility] Work Phone: Instructions* Name Dates Details Patient Instructions Indication:Nonsmoker Start:14-Mar-2022 Instruction Type:Provider Instructions for Treatment How to Access Health Informa tion Online using Patient Portal and [employer]rd [employer] Apps Indication:Nonsmoker Start:14-Mar-2022 Instruction Type:Patient Education Patient Instructions Indication:Nonsmoker Start:07-Mar-2022 Instruction Type:Provider Instructions for Treatment How to Access Health Informa tion Online using Patient Portal and [employer] Apps Indication:Nonsmoker Start:07-Mar-2022 Instruction Type:Patient Education Patient Instructions Indication:Morbid obesity Start:18-Feb-2022 Instruction Type:Provider Instructions for Treatment How to Access Health Informa tion Online using Patient Portal and [employer] Apps Indication:Morbid obesity Start:18-Feb-2022 Instruction Type:Patient Education Patient Instructions Indication:Morbid obesity Start:31-Dec-2021 Instruction Type:Provider Instructions for Treatment How to Access Health Informa tion Online using Patient Portal and [employer] Apps Indication:Morbid obesity Start:31-Dec-2021 Instruction Type:Patient Education Patient Instructions Indication:BMI 40.0-44.9, adult Start:17-Oct-2021 Instruction Type:Provider Instructions for Treatment How to Access Health Informa tion Online using Patient Portal and [employer] Apps Indication:BMI 40.0-44.9, adult Start:17-Oct-2021 Instruction Type:Patient Education Patient Instructions Indication:BMI 40.0-44.9, adult Start:10-Oct-2021 Instruction Type:Provider Instructions for Treatment How to Access Health Informa tion Online using Patient Portal and [employer] Apps Indication:BMI 40.0-44.9, adult Start:10-Oct-2021 Instruction Type:Patient Education Patient Instructions Indication:Cellulitis Start:03-Oct-2021 Instruction Type:Provider Instructions for Treatment Patient Instructions Indication:BMI 40.0-44.9, adult Start:26-Sep-2021 Instruction Type:Provider Instructions for Treatment How to Access Health Informa tion Online using Patient Portal and [employer] Apps Indication:BMI 40.0-44.9, adult Start:26-Sep-2021 Instruction Type:Patient Education Patient Instructions Indication:Nonsmoker Start:10-Aug-2021 Instruction Type:Provider Instructions for Treatment How to Access Health Informa tion Online using Patient Portal and [employer] Apps Indication:Hypertension Start:10-Aug-2021 Instruction Type:Patient Education Patient Instructions Indication:BMI 40.0-44.9, adult Start:09-Aug-2021 Instruction Type:Provider Instructions for Treatment How to Access Health Informa tion Online using Patient Portal and [employer] Apps Indication:BMI 40.0-44.9, adult Start:09-Aug-2021 Instruction Type:Patient Education Patient Instructions Indication:Nonsmoker Start:28-May-2021 Instruction Type:Provider Instructions for Treatment How to Access Health Informa tion Online using Patient Portal and [employer] Apps Indication:Nonsmoker Start:28-May-2021 Instruction Type:Patient Education Patient Instructions Indication:BMI 40.0-44.9, adult Start:04-Apr-2021 Instruction Type:Provider Instructions for Treatment How to Access Health Informa tion Online using Patient Portal and [employer] Apps Indication:BMI 40.0-44.9, adult Start:04-Apr-2021 Instruction Type:Patient Education Patient Instructions Indication:BMI 40.0-44.9, adult Start:20-Mar-2021 Instruction Type:Provider Instructions for Treatment How to Access Health Informa tion Online using Patient Portal and [employer] Apps Indication:BMI 40.0-44.9, adult Start:20-Mar-2021 Instruction Type:Patient Education Patient Instructions Indication:Type 2 diabetes mellitus Start:13-Dec-2020 Instruction Type:Provider Instructions for Treatment How to Access Health Informa tion Online using Patient Portal and [employer] Apps Indication:Type 2 diabetes mellitus Start:13-Dec-2020 Instruction Type:Patient Education Patient Instructions Indication:Type 2 diabetes mellitus Start:15-Sep-2020 Instruction Type:Provider Instructions for Treatment How to Access Health Informa tion Online using Patient Portal and [employer] Apps Indication:Type 2 diabetes mellitus Start:15-Sep-2020 Instruction Type:Patient Education [facility]; [facility] Work Phone: Instructions* Name Dates Details Patient Instructions Indication:Nonsmoker Start:14-Mar-2022 Instruction Type:Provider Instructions for Treatment How to Access Health Informa tion Online using Patient Portal and [employer] Apps Indication:Nonsmoker Start:14-Mar-2022 Instruction Type:Patient Education Patient Instructions Indication:Nonsmoker Start:07-Mar-2022 Instruction Type:Provider Instructions for Treatment How to Access Health Informa tion Online using Patient Portal and [employer] Apps Indication:Nonsmoker Start:07-Mar-2022 Instruction Type:Patient Education Patient Instructions Indication:Morbid obesity Start:18-Feb-2022 Instruction Type:Provider Instructions for Treatment How to Access Health Informa tion Online using Patient Portal and [employer] Apps Indication:Morbid obesity Start:18-Feb-2022 Instruction Type:Patient Education Patient Instructions Indication:Morbid obesity Start:31-Dec-2021 Instruction Type:Provider Instructions for Treatment How to Access Health Informa tion Online using Patient Portal and [employer] Apps Indication:Morbid obesity Start:31-Dec-2021 Instruction Type:Patient Education Patient Instructions Indication:BMI 40.0-44.9, adult Start:17-Oct-2021 Instruction Type:Provider Instructions for Treatment How to Access Health Informa tion Online using Patient Portal and [employer] Apps Indication:BMI 40.0-44.9, adult Start:17-Oct-2021 Instruction Type:Patient Education Patient Instructions Indication:BMI 40.0-44.9, adult Start:10-Oct-2021 Instruction Type:Provider Instructions for Treatment How to Access Health Informa tion Online using Patient Portal and [employer] Apps Indication:BMI 40.0-44.9, adult Start:10-Oct-2021 Instruction Type:Patient Education Patient Instructions Indication:Cellulitis Start:03-Oct-2021 Instruction Type:Provider Instructions for Treatment Patient Instructions Indication:BMI 40.0-44.9, adult Start:26-Sep-2021 Instruction Type:Provider Instructions for Treatment How to Access Health Informa tion Online using Patient Portal and [employer] Apps Indication:BMI 40.0-44.9, adult Start:26-Sep-2021 Instruction Type:Patient Education Patient Instructions Indication:Nonsmoker Start:10-Aug-2021 Instruction Type:Provider Instructions for Treatment How to Access Health Informa tion Online using Patient Portal and [employer] Apps Indication:Hypertension Start:10-Aug-2021 Instruction Type:Patient Education Patient Instructions Indication:BMI 40.0-44.9, adult Start:09-Aug-2021 Instruction Type:Provider Instructions for Treatment How to Access Health Informa tion Online using Patient Portal and [employer] Apps Indication:BMI 40.0-44.9, adult Start:09-Aug-2021 Instruction Type:Patient Education Patient Instructions Indication:Nonsmoker Start:28-May-2021 Instruction Type:Provider Instructions for Treatment How to Access Health Informa tion Online using Patient Portal and [employer] Apps Indication:Nonsmoker Start:28-May-2021 Instruction Type:Patient Education Patient Instructions Indication:BMI 40.0-44.9, adult Start:04-Apr-2021 Instruction Type:Provider Instructions for Treatment How to Access Health Informa tion Online using Patient Portal and [employer] Apps Indication:BMI 40.0-44.9, adult Start:04-Apr-2021 Instruction Type:Patient Education Patient Instructions Indication:BMI 40.0-44.9, adult Start:20-Mar-2021 Instruction Type:Provider Instructions for Treatment How to Access Health Informa tion Online using Patient Portal and [employer] Apps Indication:BMI 40.0-44.9, adult Start:20-Mar-2021 Instruction Type:Patient Education Patient Instructions Indication:Type 2 diabetes mellitus Start:13-Dec-2020 Instruction Type:Provider Instructions for Treatment How to Access Health Informa tion Online using Patient Portal and [employer] Apps Indication:Type 2 diabetes mellitus Start:13-Dec-2020 Instruction Type:Patient Education Patient Instructions Indication:Type 2 diabetes mellitus Start:15-Sep-2020 Instruction Type:Provider Instructions for Treatment How to Access Health Informa tion Online using Patient Portal and [employer] Apps Indication:Type 2 diabetes mellitus Start:15-Sep-2020 Instruction Type:Patient Education [facility]; [facility] Work Phone: Instructions* Name Dates Details Patient Instructions Indication:Nonsmoker Start:14-Mar-2022 Instruction Type:Provider Instructions for Treatment How to Access Health Informa tion Online using Patient Portal and [employer] Apps Indication:Nonsmoker Start:14-Mar-2022 Instruction Type:Patient Education Patient Instructions Indication:Nonsmoker Start:07-Mar-2022 Instruction Type:Provider Instructions for Treatment How to Access Health Informa tion Online using Patient Portal and [employer] Apps Indication:Nonsmoker Start:07-Mar-2022 Instruction Type:Patient Education Patient Instructions Indication:Morbid obesity Start:18-Feb-2022 Instruction Type:Provider Instructions for Treatment How to Access Health Informa tion Online using Patient Portal and 3rd [employer] Indication:Morbid obesity Start:18-Feb-2022 Instruction Type:Patient Education Patient Instructions Indication:Morbid obesity Start:31-Dec-2021 Instruction Type:Provider Instructions for Treatment How to Access Health Informa tion Online using Patient Portal and [employer]rd [employer] Indication:Morbid obesity Start:31-Dec-2021 Instruction Type:Patient Education Patient Instructions Indication:BMI 40.0-44.9, adult Start:17-Oct-2021 Instruction Type:Provider Instructions for Treatment How to Access Health Informa tion Online using Patient Portal and [employer] Indication:BMI 40.0-44.9, adult Start:17-Oct-2021 Instruction Type:Patient Education Patient Instructions Indication:BMI 40.0-44.9, adult Start:10-Oct-2021 Instruction Type:Provider Instructions for Treatment How to Access Health Informa tion Online using Patient Portal and [employer]rd [employer] Indication:BMI 40.0-44.9, adult Start:10-Oct-2021 Instruction Type:Patient Education Patient Instructions Indication:Cellulitis Start:03-Oct-2021 Instruction Type:Provider Instructions for Treatment Patient Instructions Indication:BMI 40.0-44.9, adult Start:26-Sep-2021 Instruction Type:Provider Instructions for Treatment How to Access Health Informa tion Online using Patient Portal and [employer] Indication:BMI 40.0-44.9, adult Start:26-Sep-2021 Instruction Type:Patient Education Patient Instructions Indication:Nonsmoker Start:10-Aug-2021 Instruction Type:Provider Instructions for Treatment How to Access Health Informa tion Online using Patient Portal and [employer] Indication:Hypertension Start:10-Aug-2021 Instruction Type:Patient Education Patient Instructions Indication:BMI 40.0-44.9, adult Start:09-Aug-2021 Instruction Type:Provider Instructions for Treatment How to Access Health Informa tion Online using Patient Portal and [employer] Indication:BMI 40.0-44.9, adult Start:09-Aug-2021 Instruction Type:Patient Education Patient Instructions Indication:Nonsmoker Start:28-May-2021 Instruction Type:Provider Instructions for Treatment How to Access Health Informa tion Online using Patient Portal and [employer] Indication:Nonsmoker Start:28-May-2021 Instruction Type:Patient Education Patient Instructions Indication:BMI 40.0-44.9, adult Start:04-Apr-2021 Instruction Type:Provider Instructions for Treatment How to Access Health Informa tion Online using Patient Portal and [employer] Indication:BMI 40.0-44.9, adult Start:04-Apr-2021 Instruction Type:Patient Education Patient Instructions Indication:BMI 40.0-44.9, adult Start:20-Mar-2021 Instruction Type:Provider Instructions for Treatment How to Access Health Informa tion Online using Patient Portal and [employer] Indication:BMI 40.0-44.9, adult Start:20-Mar-2021 Instruction Type:Patient Education Patient Instructions Indication:Type 2 diabetes mellitus Start:13-Dec-2020 Instruction Type:Provider Instructions for Treatment How to Access Health Informa tion Online using Patient Portal and [employer] Indication:Type 2 diabetes mellitus Start:13-Dec-2020 Instruction Type:Patient Education Patient Instructions Indication:Type 2 diabetes mellitus Start:15-Sep-2020 Instruction Type:Provider Instructions for Treatment How to Access Health Informa tion Online using Patient Portal and [employer] Indication:Type 2 diabetes mellitus Start:15-Sep-2020 Instruction Type:Patient Education [facility]; [facility] Work Phone: Instructions* Name Dates Details Patient Instructions Indication:Nonsmoker Start:14-Mar-2022 Instruction Type:Provider Instructions for Treatment How to Access Health Informa tion Online using Patient Portal and [employer] Indication:Nonsmoker Start:14-Mar-2022 Instruction Type:Patient Education Patient Instructions Indication:Nonsmoker Start:07-Mar-2022 Instruction Type:Provider Instructions for Treatment How to Access Health Informa tion Online using Patient Portal and [employer] Indication:Nonsmoker Start:07-Mar-2022 Instruction Type:Patient Education Patient Instructions Indication:Morbid obesity Start:18-Feb-2022 Instruction Type:Provider Instructions for Treatment How to Access Health Informa tion Online using Patient Portal and [employer] Indication:Morbid obesity Start:18-Feb-2022 Instruction Type:Patient Education Patient Instructions Indication:Morbid obesity Start:31-Dec-2021 Instruction Type:Provider Instructions for Treatment How to Access Health Informa tion Online using Patient Portal and [employer] Indication:Morbid obesity Start:31-Dec-2021 Instruction Type:Patient Education Patient Instructions Indication:BMI 40.0-44.9, adult Start:17-Oct-2021 Instruction Type:Provider Instructions for Treatment How to Access Health Informa tion Online using Patient Portal and [employer] Indication:BMI 40.0-44.9, adult Start:17-Oct-2021 Instruction Type:Patient Education Patient Instructions Indication:BMI 40.0-44.9, adult Start:10-Oct-2021 Instruction Type:Provider Instructions for Treatment How to Access Health Informa tion Online using Patient Portal and [employer] Indication:BMI 40.0-44.9, adult Start:10-Oct-2021 Instruction Type:Patient Education Patient Instructions Indication:Cellulitis Start:03-Oct-2021 Instruction Type:Provider Instructions for Treatment Patient Instructions Indication:BMI 40.0-44.9, adult Start:26-Sep-2021 Instruction Type:Provider Instructions for Treatment How to Access Health Informa tion Online using Patient Portal and [employer] Indication:BMI 40.0-44.9, adult Start:26-Sep-2021 Instruction Type:Patient Education Patient Instructions Indication:Nonsmoker Start:10-Aug-2021 Instruction Type:Provider Instructions for Treatment How to Access Health Informa tion Online using Patient Portal and [employer] Indication:Hypertension Start:10-Aug-2021 Instruction Type:Patient Education Patient Instructions Indication:BMI 40.0-44.9, adult Start:09-Aug-2021 Instruction Type:Provider Instructions for Treatment How to Access Health Informa tion Online using Patient Portal and [employer] Indication:BMI 40.0-44.9, adult Start:09-Aug-2021 Instruction Type:Patient Education Patient Instructions Indication:Nonsmoker Start:28-May-2021 Instruction Type:Provider Instructions for Treatment How to Access Health Informa tion Online using Patient Portal and [employer] Indication:Nonsmoker Start:28-May-2021 Instruction Type:Patient Education Patient Instructions Indication:BMI 40.0-44.9, adult Start:04-Apr-2021 Instruction Type:Provider Instructions for Treatment How to Access Health Informa tion Online using Patient Portal and [employer] Indication:BMI 40.0-44.9, adult Start:04-Apr-2021 Instruction Type:Patient Education Patient Instructions Indication:BMI 40.0-44.9, adult Start:20-Mar-2021 Instruction Type:Provider Instructions for Treatment How to Access Health Informa tion Online using Patient Portal and [employer] Indication:BMI 40.0-44.9, adult Start:20-Mar-2021 Instruction Type:Patient Education Patient Instructions Indication:Type 2 diabetes mellitus Start:13-Dec-2020 Instruction Type:Provider Instructions for Treatment How to Access Health Informa tion Online using Patient Portal and [employer] Indication:Type 2 diabetes mellitus Start:13-Dec-2020 Instruction Type:Patient Education Patient Instructions Indication:Type 2 diabetes mellitus Start:15-Sep-2020 Instruction Type:Provider Instructions for Treatment How to Access Health Informa tion Online using Patient Portal and [employer] Indication:Type 2 diabetes mellitus Start:15-Sep-2020 Instruction Type:Patient Education [facility]; [facility] Work Phone: Instructions* Name Dates Details Patient Instructions Indication:Nonsmoker Start:10-May-2022 Instruction Type:Provider Instructions for Treatment How to Access Health Informa tion Online using Patient Portal and [employer] Indication:Nonsmoker Start:10-May-2022 Instruction Type:Patient Education Patient Instructions Indication:Nonsmoker Start:14-Mar-2022 Instruction Type:Provider Instructions for Treatment How to Access Health Informa tion Online using Patient Portal and [employer] Indication:Nonsmoker Start:14-Mar-2022 Instruction Type:Patient Education Patient Instructions Indication:Nonsmoker Start:07-Mar-2022 Instruction Type:Provider Instructions for Treatment How to Access Health Informa tion Online using Patient Portal and [employer] Indication:Nonsmoker Start:07-Mar-2022 Instruction Type:Patient Education Patient Instructions Indication:Morbid obesity Start:18-Feb-2022 Instruction Type:Provider Instructions for Treatment How to Access Health Informa tion Online using Patient Portal and [employer] Indication:Morbid obesity Start:18-Feb-2022 Instruction Type:Patient Education Patient Instructions Indication:Morbid obesity Start:31-Dec-2021 Instruction Type:Provider Instructions for Treatment How to Access Health Informa tion Online using Patient Portal and [employer] Indication:Morbid obesity Start:31-Dec-2021 Instruction Type:Patient Education Patient Instructions Indication:BMI 40.0-44.9, adult Start:17-Oct-2021 Instruction Type:Provider Instructions for Treatment How to Access Health Informa tion Online using Patient Portal and [employer] Indication:BMI 40.0-44.9, adult Start:17-Oct-2021 Instruction Type:Patient Education Patient Instructions Indication:BMI 40.0-44.9, adult Start:10-Oct-2021 Instruction Type:Provider Instructions for Treatment How to Access Health Informa tion Online using Patient Portal and [employer] Indication:BMI 40.0-44.9, adult Start:10-Oct-2021 Instruction Type:Patient Education Patient Instructions Indication:Cellulitis Start:03-Oct-2021 Instruction Type:Provider Instructions for Treatment Patient Instructions Indication:BMI 40.0-44.9, adult Start:26-Sep-2021 Instruction Type:Provider Instructions for Treatment How to Access Health Informa tion Online using Patient Portal and [employer] Indication:BMI 40.0-44.9, adult Start:26-Sep-2021 Instruction Type:Patient Education Patient Instructions Indication:Nonsmoker Start:10-Aug-2021 Instruction Type:Provider Instructions for Treatment How to Access Health Informa tion Online using Patient Portal and [employer] Indication:Hypertension Start:10-Aug-2021 Instruction Type:Patient Education Patient Instructions Indication:BMI 40.0-44.9, adult Start:09-Aug-2021 Instruction Type:Provider Instructions for Treatment How to Access Health Informa tion Online using Patient Portal and [employer] Indication:BMI 40.0-44.9, adult Start:09-Aug-2021 Instruction Type:Patient Education Patient Instructions Indication:Nonsmoker Start:28-May-2021 Instruction Type:Provider Instructions for Treatment How to Access Health Informa tion Online using Patient Portal and [employer] Indication:Nonsmoker Start:28-May-2021 Instruction Type:Patient Education Patient Instructions Indication:BMI 40.0-44.9, adult Start:04-Apr-2021 Instruction Type:Provider Instructions for Treatment How to Access Health Informa tion Online using Patient Portal and [employer] Indication:BMI 40.0-44.9, adult Start:04-Apr-2021 Instruction Type:Patient Education Patient Instructions Indication:BMI 40.0-44.9, adult Start:20-Mar-2021 Instruction Type:Provider Instructions for Treatment How to Access Health Informa tion Online using Patient Portal and [employer] Indication:BMI 40.0-44.9, adult Start:20-Mar-2021 Instruction Type:Patient Education Patient Instructions Indication:Type 2 diabetes mellitus Start:13-Dec-2020 Instruction Type:Provider Instructions for Treatment How to Access Health Informa tion Online using Patient Portal and [employer] Indication:Type 2 diabetes mellitus Start:13-Dec-2020 Instruction Type:Patient Education Patient Instructions Indication:Type 2 diabetes mellitus Start:15-Sep-2020 Instruction Type:Provider Instructions for Treatment How to Access Health Informa tion Online using Patient Portal and [employer] Indication:Type 2 diabetes mellitus Start:15-Sep-2020 Instruction Type:Patient Education [facility]; [facility] Work Phone: Instructions* Name Dates Details Patient Instructions Indication:Nonsmoker Start:10-May-2022 Instruction Type:Provider Instructions for Treatment How to Access Health Informa tion Online using Patient Portal and [employer] Indication:Nonsmoker Start:10-May-2022 Instruction Type:Patient Education Patient Instructions Indication:Nonsmoker Start:14-Mar-2022 Instruction Type:Provider Instructions for Treatment How to Access Health Informa tion Online using Patient Portal and [employer] Indication:Nonsmoker Start:14-Mar-2022 Instruction Type:Patient Education Patient Instructions Indication:Nonsmoker Start:07-Mar-2022 Instruction Type:Provider Instructions for Treatment How to Access Health Informa tion Online using Patient Portal and [employer] Indication:Nonsmoker Start:07-Mar-2022 Instruction Type:Patient Education Patient Instructions Indication:Morbid obesity Start:18-Feb-2022 Instruction Type:Provider Instructions for Treatment How to Access Health Informa tion Online using Patient Portal and [employer] Indication:Morbid obesity Start:18-Feb-2022 Instruction Type:Patient Education Patient Instructions Indication:Morbid obesity Start:31-Dec-2021 Instruction Type:Provider Instructions for Treatment How to Access Health Informa tion Online using Patient Portal and [employer] Indication:Morbid obesity Start:31-Dec-2021 Instruction Type:Patient Education Patient Instructions Indication:BMI 40.0-44.9, adult Start:17-Oct-2021 Instruction Type:Provider Instructions for Treatment How to Access Health Informa tion Online using Patient Portal and [employer] Indication:BMI 40.0-44.9, adult Start:17-Oct-2021 Instruction Type:Patient Education Patient Instructions Indication:BMI 40.0-44.9, adult Start:10-Oct-2021 Instruction Type:Provider Instructions for Treatment How to Access Health Informa tion Online using Patient Portal and [employer] Indication:BMI 40.0-44.9, adult Start:10-Oct-2021 Instruction Type:Patient Education Patient Instructions Indication:Cellulitis Start:03-Oct-2021 Instruction Type:Provider Instructions for Treatment Patient Instructions Indication:BMI 40.0-44.9, adult Start:26-Sep-2021 Instruction Type:Provider Instructions for Treatment How to Access Health Informa tion Online using Patient Portal and [employer] Indication:BMI 40.0-44.9, adult Start:26-Sep-2021 Instruction Type:Patient Education Patient Instructions Indication:Nonsmoker Start:10-Aug-2021 Instruction Type:Provider Instructions for Treatment How to Access Health Informa tion Online using Patient Portal and [employer] Indication:Hypertension Start:10-Aug-2021 Instruction Type:Patient Education Patient Instructions Indication:BMI 40.0-44.9, adult Start:09-Aug-2021 Instruction Type:Provider Instructions for Treatment How to Access Health Informa tion Online using Patient Portal and [employer] Indication:BMI 40.0-44.9, adult Start:09-Aug-2021 Instruction Type:Patient Education Patient Instructions Indication:Nonsmoker Start:28-May-2021 Instruction Type:Provider Instructions for Treatment How to Access Health Informa tion Online using Patient Portal and [employer] Indication:Nonsmoker Start:28-May-2021 Instruction Type:Patient Education Patient Instructions Indication:BMI 40.0-44.9, adult Start:04-Apr-2021 Instruction Type:Provider Instructions for Treatment How to Access Health Informa tion Online using Patient Portal and [employer] Indication:BMI 40.0-44.9, adult Start:04-Apr-2021 Instruction Type:Patient Education Patient Instructions Indication:BMI 40.0-44.9, adult Start:20-Mar-2021 Instruction Type:Provider Instructions for Treatment How to Access Health Informa tion Online using Patient Portal and [employer] Indication:BMI 40.0-44.9, adult Start:20-Mar-2021 Instruction Type:Patient Education Patient Instructions Indication:Type 2 diabetes mellitus Start:13-Dec-2020 Instruction Type:Provider Instructions for Treatment How to Access Health Informa tion Online using Patient Portal and [employer] Indication:Type 2 diabetes mellitus Start:13-Dec-2020 Instruction Type:Patient Education Patient Instructions Indication:Type 2 diabetes mellitus Start:15-Sep-2020 Instruction Type:Provider Instructions for Treatment How to Access Health Informa tion Online using Patient Portal and [employer] Indication:Type 2 diabetes mellitus Start:15-Sep-2020 Instruction Type:Patient Education [facility]; [facility] Work Phone: Instructions* Name Dates Details Patient Instructions Indication:Nonsmoker Start:10-May-2022 Instruction Type:Provider Instructions for Treatment How to Access Health Informa tion Online using Patient Portal and [employer] Indication:Nonsmoker Start:10-May-2022 Instruction Type:Patient Education Patient Instructions Indication:Nonsmoker Start:14-Mar-2022 Instruction Type:Provider Instructions for Treatment How to Access Health Informa tion Online using Patient Portal and [employer] Indication:Nonsmoker Start:14-Mar-2022 Instruction Type:Patient Education Patient Instructions Indication:Nonsmoker Start:07-Mar-2022 Instruction Type:Provider Instructions for Treatment How to Access Health Informa tion Online using Patient Portal and [employer] Indication:Nonsmoker Start:07-Mar-2022 Instruction Type:Patient Education Patient Instructions Indication:Morbid obesity Start:18-Feb-2022 Instruction Type:Provider Instructions for Treatment How to Access Health Informa tion Online using Patient Portal and [employer] Indication:Morbid obesity Start:18-Feb-2022 Instruction Type:Patient Education Patient Instructions Indication:Morbid obesity Start:31-Dec-2021 Instruction Type:Provider Instructions for Treatment How to Access Health Informa tion Online using Patient Portal and [employer] Indication:Morbid obesity Start:31-Dec-2021 Instruction Type:Patient Education Patient Instructions Indication:BMI 40.0-44.9, adult Start:17-Oct-2021 Instruction Type:Provider Instructions for Treatment How to Access Health Informa tion Online using Patient Portal and [employer] Indication:BMI 40.0-44.9, adult Start:17-Oct-2021 Instruction Type:Patient Education Patient Instructions Indication:BMI 40.0-44.9, adult Start:10-Oct-2021 Instruction Type:Provider Instructions for Treatment How to Access Health Informa tion Online using Patient Portal and [employer] Indication:BMI 40.0-44.9, adult Start:10-Oct-2021 Instruction Type:Patient Education Patient Instructions Indication:Cellulitis Start:03-Oct-2021 Instruction Type:Provider Instructions for Treatment Patient Instructions Indication:BMI 40.0-44.9, adult Start:26-Sep-2021 Instruction Type:Provider Instructions for Treatment How to Access Health Informa tion Online using Patient Portal and [employer] Indication:BMI 40.0-44.9, adult Start:26-Sep-2021 Instruction Type:Patient Education Patient Instructions Indication:Nonsmoker Start:10-Aug-2021 Instruction Type:Provider Instructions for Treatment How to Access Health Informa tion Online using Patient Portal and [employer] Indication:Hypertension Start:10-Aug-2021 Instruction Type:Patient Education Patient Instructions Indication:BMI 40.0-44.9, adult Start:09-Aug-2021 Instruction Type:Provider Instructions for Treatment How to Access Health Informa tion Online using Patient Portal and [employer] Indication:BMI 40.0-44.9, adult Start:09-Aug-2021 Instruction Type:Patient Education Patient Instructions Indication:Nonsmoker Start:28-May-2021 Instruction Type:Provider Instructions for Treatment How to Access Health Informa tion Online using Patient Portal and [employer] Indication:Nonsmoker Start:28-May-2021 Instruction Type:Patient Education Patient Instructions Indication:BMI 40.0-44.9, adult Start:04-Apr-2021 Instruction Type:Provider Instructions for Treatment How to Access Health Informa tion Online using Patient Portal and [employer] Indication:BMI 40.0-44.9, adult Start:04-Apr-2021 Instruction Type:Patient Education Patient Instructions Indication:BMI 40.0-44.9, adult Start:20-Mar-2021 Instruction Type:Provider Instructions for Treatment How to Access Health Informa tion Online using Patient Portal and [employer] Indication:BMI 40.0-44.9, adult Start:20-Mar-2021 Instruction Type:Patient Education Patient Instructions Indication:Type 2 diabetes mellitus Start:13-Dec-2020 Instruction Type:Provider Instructions for Treatment How to Access Health Informa tion Online using Patient Portal and [employer] Indication:Type 2 diabetes mellitus Start:13-Dec-2020 Instruction Type:Patient Education Patient Instructions Indication:Type 2 diabetes mellitus Start:15-Sep-2020 Instruction Type:Provider Instructions for Treatment How to Access Health Informa tion Online using Patient Portal and [employer] Indication:Type 2 diabetes mellitus Start:15-Sep-2020 Instruction Type:Patient Education [facility]; [facility] Work Phone: Instructions* Name Dates Details Patient Instructions Indication:Nonsmoker Start:10-May-2022 Instruction Type:Provider Instructions for Treatment How to Access Health Informa tion Online using Patient Portal and [employer] Indication:Nonsmoker Start:10-May-2022 Instruction Type:Patient Education Patient Instructions Indication:Nonsmoker Start:14-Mar-2022 Instruction Type:Provider Instructions for Treatment How to Access Health Informa tion Online using Patient Portal and [employer] Indication:Nonsmoker Start:14-Mar-2022 Instruction Type:Patient Education Patient Instructions Indication:Nonsmoker Start:07-Mar-2022 Instruction Type:Provider Instructions for Treatment How to Access Health Informa tion Online using Patient Portal and [employer] Indication:Nonsmoker Start:07-Mar-2022 Instruction Type:Patient Education Patient Instructions Indication:Morbid obesity Start:18-Feb-2022 Instruction Type:Provider Instructions for Treatment How to Access Health Informa tion Online using Patient Portal and [employer] Indication:Morbid obesity Start:18-Feb-2022 Instruction Type:Patient Education Patient Instructions Indication:Morbid obesity Start:31-Dec-2021 Instruction Type:Provider Instructions for Treatment How to Access Health Informa tion Online using Patient Portal and [employer] Indication:Morbid obesity Start:31-Dec-2021 Instruction Type:Patient Education Patient Instructions Indication:BMI 40.0-44.9, adult Start:17-Oct-2021 Instruction Type:Provider Instructions for Treatment How to Access Health Informa tion Online using Patient Portal and [employer] Indication:BMI 40.0-44.9, adult Start:17-Oct-2021 Instruction Type:Patient Education Patient Instructions Indication:BMI 40.0-44.9, adult Start:10-Oct-2021 Instruction Type:Provider Instructions for Treatment How to Access Health Informa tion Online using Patient Portal and [employer] Indication:BMI 40.0-44.9, adult Start:10-Oct-2021 Instruction Type:Patient Education Patient Instructions Indication:Cellulitis Start:03-Oct-2021 Instruction Type:Provider Instructions for Treatment Patient Instructions Indication:BMI 40.0-44.9, adult Start:26-Sep-2021 Instruction Type:Provider Instructions for Treatment How to Access Health Informa tion Online using Patient Portal and [employer] Indication:BMI 40.0-44.9, adult Start:26-Sep-2021 Instruction Type:Patient Education Patient Instructions Indication:Nonsmoker Start:10-Aug-2021 Instruction Type:Provider Instructions for Treatment How to Access Health Informa tion Online using Patient Portal and [employer] Indication:Hypertension Start:10-Aug-2021 Instruction Type:Patient Education Patient Instructions Indication:BMI 40.0-44.9, adult Start:09-Aug-2021 Instruction Type:Provider Instructions for Treatment How to Access Health Informa tion Online using Patient Portal and [employer] Apps Indication:BMI 40.0-44.9, adult Start:09-Aug-2021 Instruction Type:Patient Education Patient Instructions Indication:Nonsmoker Start:28-May-2021 Instruction Type:Provider Instructions for Treatment How to Access Health Informa tion Online using Patient Portal and [employer] Apps Indication:Nonsmoker Start:28-May-2021 Instruction Type:Patient Education Patient Instructions Indication:BMI 40.0-44.9, adult Start:04-Apr-2021 Instruction Type:Provider Instructions for Treatment How to Access Health Informa tion Online using Patient Portal and [employer] Apps Indication:BMI 40.0-44.9, adult Start:04-Apr-2021 Instruction Type:Patient Education Patient Instructions Indication:BMI 40.0-44.9, adult Start:20-Mar-2021 Instruction Type:Provider Instructions for Treatment How to Access Health Informa tion Online using Patient Portal and [employer] Apps Indication:BMI 40.0-44.9, adult Start:20-Mar-2021 Instruction Type:Patient Education Patient Instructions Indication:Type 2 diabetes mellitus Start:13-Dec-2020 Instruction Type:Provider Instructions for Treatment How to Access Health Informa tion Online using Patient Portal and [employer] Apps Indication:Type 2 diabetes mellitus Start:13-Dec-2020 Instruction Type:Patient Education Patient Instructions Indication:Type 2 diabetes mellitus Start:15-Sep-2020 Instruction Type:Provider Instructions for Treatment How to Access Health Informa tion Online using Patient Portal and [employer] Apps Indication:Type 2 diabetes mellitus Start:15-Sep-2020 Instruction Type:Patient Education [facility]; [facility] Work Phone: Instructions* Name Dates Details Patient Instructions Indication:Nonsmoker Start:10-May-2022 Instruction Type:Provider Instructions for Treatment How to Access Health Informa tion Online using Patient Portal and [employer] Apps Indication:Nonsmoker Start:10-May-2022 Instruction Type:Patient Education Patient Instructions Indication:Nonsmoker Start:14-Mar-2022 Instruction Type:Provider Instructions for Treatment How to Access Health Informa tion Online using Patient Portal and [employer] Apps Indication:Nonsmoker Start:14-Mar-2022 Instruction Type:Patient Education Patient Instructions Indication:Nonsmoker Start:07-Mar-2022 Instruction Type:Provider Instructions for Treatment How to Access Health Informa tion Online using Patient Portal and [employer] Apps Indication:Nonsmoker Start:07-Mar-2022 Instruction Type:Patient Education Patient Instructions Indication:Morbid obesity Start:18-Feb-2022 Instruction Type:Provider Instructions for Treatment How to Access Health Informa tion Online using Patient Portal and [employer] Apps Indication:Morbid obesity Start:18-Feb-2022 Instruction Type:Patient Education Patient Instructions Indication:Morbid obesity Start:31-Dec-2021 Instruction Type:Provider Instructions for Treatment How to Access Health Informa tion Online using Patient Portal and [employer] Apps Indication:Morbid obesity Start:31-Dec-2021 Instruction Type:Patient Education Patient Instructions Indication:BMI 40.0-44.9, adult Start:17-Oct-2021 Instruction Type:Provider Instructions for Treatment How to Access Health Informa tion Online using Patient Portal and [employer] Apps Indication:BMI 40.0-44.9, adult Start:17-Oct-2021 Instruction Type:Patient Education Patient Instructions Indication:BMI 40.0-44.9, adult Start:10-Oct-2021 Instruction Type:Provider Instructions for Treatment How to Access Health Informa tion Online using Patient Portal and [employer] Apps Indication:BMI 40.0-44.9, adult Start:10-Oct-2021 Instruction Type:Patient Education Patient Instructions Indication:Cellulitis Start:03-Oct-2021 Instruction Type:Provider Instructions for Treatment Patient Instructions Indication:BMI 40.0-44.9, adult Start:26-Sep-2021 Instruction Type:Provider Instructions for Treatment How to Access Health Informa tion Online using Patient Portal and [employer] Apps Indication:BMI 40.0-44.9, adult Start:26-Sep-2021 Instruction Type:Patient Education Patient Instructions Indication:Nonsmoker Start:10-Aug-2021 Instruction Type:Provider Instructions for Treatment How to Access Health Informa tion Online using Patient Portal and [employer] Apps Indication:Hypertension Start:10-Aug-2021 Instruction Type:Patient Education Patient Instructions Indication:BMI 40.0-44.9, adult Start:09-Aug-2021 Instruction Type:Provider Instructions for Treatment How to Access Health Informa tion Online using Patient Portal and [employer] Apps Indication:BMI 40.0-44.9, adult Start:09-Aug-2021 Instruction Type:Patient Education Patient Instructions Indication:Nonsmoker Start:28-May-2021 Instruction Type:Provider Instructions for Treatment How to Access Health Informa tion Online using Patient Portal and [employer] Apps Indication:Nonsmoker Start:28-May-2021 Instruction Type:Patient Education Patient Instructions Indication:BMI 40.0-44.9, adult Start:04-Apr-2021 Instruction Type:Provider Instructions for Treatment How to Access Health Informa tion Online using Patient Portal and [employer] Apps Indication:BMI 40.0-44.9, adult Start:04-Apr-2021 Instruction Type:Patient Education Patient Instructions Indication:BMI 40.0-44.9, adult Start:20-Mar-2021 Instruction Type:Provider Instructions for Treatment How to Access Health Informa tion Online using Patient Portal and [employer] Apps Indication:BMI 40.0-44.9, adult Start:20-Mar-2021 Instruction Type:Patient Education Patient Instructions Indication:Type 2 diabetes mellitus Start:13-Dec-2020 Instruction Type:Provider Instructions for Treatment How to Access Health Informa tion Online using Patient Portal and [employer] Apps Indication:Type 2 diabetes mellitus Start:13-Dec-2020 Instruction Type:Patient Education Patient Instructions Indication:Type 2 diabetes mellitus Start:15-Sep-2020 Instruction Type:Provider Instructions for Treatment How to Access Health Informa tion Online using Patient Portal and [employer] Apps Indication:Type 2 diabetes mellitus Start:15-Sep-2020 Instruction Type:Patient Education [facility]; [facility] Work Phone: Instructions* Name Dates Details Patient Instructions Indication:Nonsmoker Start:10-May-2022 Instruction Type:Provider Instructions for Treatment How to Access Health Informa tion Online using Patient Portal and [employer] Apps Indication:Nonsmoker Start:10-May-2022 Instruction Type:Patient Education Patient Instructions Indication:Nonsmoker Start:14-Mar-2022 Instruction Type:Provider Instructions for Treatment How to Access Health Informa tion Online using Patient Portal and [employer] Apps Indication:Nonsmoker Start:14-Mar-2022 Instruction Type:Patient Education Patient Instructions Indication:Nonsmoker Start:07-Mar-2022 Instruction Type:Provider Instructions for Treatment How to Access Health Informa tion Online using Patient Portal and [employer] Apps Indication:Nonsmoker Start:07-Mar-2022 Instruction Type:Patient Education Patient Instructions Indication:Morbid obesity Start:18-Feb-2022 Instruction Type:Provider Instructions for Treatment How to Access Health Informa tion Online using Patient Portal and [employer] Apps Indication:Morbid obesity Start:18-Feb-2022 Instruction Type:Patient Education Patient Instructions Indication:Morbid obesity Start:31-Dec-2021 Instruction Type:Provider Instructions for Treatment How to Access Health Informa tion Online using Patient Portal and [employer] Apps Indication:Morbid obesity Start:31-Dec-2021 Instruction Type:Patient Education Patient Instructions Indication:BMI 40.0-44.9, adult Start:17-Oct-2021 Instruction Type:Provider Instructions for Treatment How to Access Health Informa tion Online using Patient Portal and [employer] Indication:BMI 40.0-44.9, adult Start:17-Oct-2021 Instruction Type:Patient Education Patient Instructions Indication:BMI 40.0-44.9, adult Start:10-Oct-2021 Instruction Type:Provider Instructions for Treatment How to Access Health Informa tion Online using Patient Portal and [employer] Apps Indication:BMI 40.0-44.9, adult Start:10-Oct-2021 Instruction Type:Patient Education Patient Instructions Indication:Cellulitis Start:03-Oct-2021 Instruction Type:Provider Instructions for Treatment Patient Instructions Indication:BMI 40.0-44.9, adult Start:26-Sep-2021 Instruction Type:Provider Instructions for Treatment How to Access Health Informa tion Online using Patient Portal and [employer] Indication:BMI 40.0-44.9, adult Start:26-Sep-2021 Instruction Type:Patient Education Patient Instructions Indication:Nonsmoker Start:10-Aug-2021 Instruction Type:Provider Instructions for Treatment How to Access Health Informa tion Online using Patient Portal and [employer] Apps Indication:Hypertension Start:10-Aug-2021 Instruction Type:Patient Education Patient Instructions Indication:BMI 40.0-44.9, adult Start:09-Aug-2021 Instruction Type:Provider Instructions for Treatment How to Access Health Informa tion Online using Patient Portal and [employer] Apps Indication:BMI 40.0-44.9, adult Start:09-Aug-2021 Instruction Type:Patient Education Patient Instructions Indication:Nonsmoker Start:28-May-2021 Instruction Type:Provider Instructions for Treatment How to Access Health Informa tion Online using Patient Portal and [employer] Apps Indication:Nonsmoker Start:28-May-2021 Instruction Type:Patient Education Patient Instructions Indication:BMI 40.0-44.9, adult Start:04-Apr-2021 Instruction Type:Provider Instructions for Treatment How to Access Health Informa tion Online using Patient Portal and [employer] Apps Indication:BMI 40.0-44.9, adult Start:04-Apr-2021 Instruction Type:Patient Education Patient Instructions Indication:BMI 40.0-44.9, adult Start:20-Mar-2021 Instruction Type:Provider Instructions for Treatment How to Access Health Informa tion Online using Patient Portal and [employer] Indication:BMI 40.0-44.9, adult Start:20-Mar-2021 Instruction Type:Patient Education Patient Instructions Indication:Type 2 diabetes mellitus Start:13-Dec-2020 Instruction Type:Provider Instructions for Treatment How to Access Health Informa tion Online using Patient Portal and [employer] Apps Indication:Type 2 diabetes mellitus Start:13-Dec-2020 Instruction Type:Patient Education Patient Instructions Indication:Type 2 diabetes mellitus Start:15-Sep-2020 Instruction Type:Provider Instructions for Treatment How to Access Health Informa tion Online using Patient Portal and [employer] Apps Indication:Type 2 diabetes mellitus Start:15-Sep-2020 Instruction Type:Patient Education [facility]; [facility] Work Phone: Instructions* Name Dates Details Patient Instructions Indication:Nonsmoker Start:10-Jun-2022 Instruction Type:Provider Instructions for Treatment How to Access Health Informa tion Online using Patient Portal and [employer] Apps Indication:Nonsmoker Start:10-Jun-2022 Instruction Type:Patient Education Patient Instructions Indication:Nonsmoker Start:10-May-2022 Instruction Type:Provider Instructions for Treatment How to Access Health Informa tion Online using Patient Portal and [employer] Apps Indication:Nonsmoker Start:10-May-2022 Instruction Type:Patient Education Patient Instructions Indication:Nonsmoker Start:14-Mar-2022 Instruction Type:Provider Instructions for Treatment How to Access Health Informa tion Online using Patient Portal and [employer] Apps Indication:Nonsmoker Start:14-Mar-2022 Instruction Type:Patient Education Patient Instructions Indication:Nonsmoker Start:07-Mar-2022 Instruction Type:Provider Instructions for Treatment How to Access Health Informa tion Online using Patient Portal and [employer] Apps Indication:Nonsmoker Start:07-Mar-2022 Instruction Type:Patient Education Patient Instructions Indication:Morbid obesity Start:18-Feb-2022 Instruction Type:Provider Instructions for Treatment How to Access Health Informa tion Online using Patient Portal and [employer] Apps Indication:Morbid obesity Start:18-Feb-2022 Instruction Type:Patient Education Patient Instructions Indication:Morbid obesity Start:31-Dec-2021 Instruction Type:Provider Instructions for Treatment How to Access Health Informa tion Online using Patient Portal and [employer] Apps Indication:Morbid obesity Start:31-Dec-2021 Instruction Type:Patient Education Patient Instructions Indication:BMI 40.0-44.9, adult Start:17-Oct-2021 Instruction Type:Provider Instructions for Treatment How to Access Health Informa tion Online using Patient Portal and [employer] Apps Indication:BMI 40.0-44.9, adult Start:17-Oct-2021 Instruction Type:Patient Education Patient Instructions Indication:BMI 40.0-44.9, adult Start:10-Oct-2021 Instruction Type:Provider Instructions for Treatment How to Access Health Informa tion Online using Patient Portal and [employer] Apps Indication:BMI 40.0-44.9, adult Start:10-Oct-2021 Instruction Type:Patient Education Patient Instructions Indication:Cellulitis Start:03-Oct-2021 Instruction Type:Provider Instructions for Treatment Patient Instructions Indication:BMI 40.0-44.9, adult Start:26-Sep-2021 Instruction Type:Provider Instructions for Treatment How to Access Health Informa tion Online using Patient Portal and [employer] Indication:BMI 40.0-44.9, adult Start:26-Sep-2021 Instruction Type:Patient Education Patient Instructions Indication:Nonsmoker Start:10-Aug-2021 Instruction Type:Provider Instructions for Treatment How to Access Health Informa tion Online using Patient Portal and [employer] Apps Indication:Hypertension Start:10-Aug-2021 Instruction Type:Patient Education Patient Instructions Indication:BMI 40.0-44.9, adult Start:09-Aug-2021 Instruction Type:Provider Instructions for Treatment How to Access Health Informa tion Online using Patient Portal and [employer] Apps Indication:BMI 40.0-44.9, adult Start:09-Aug-2021 Instruction Type:Patient Education Patient Instructions Indication:Nonsmoker Start:28-May-2021 Instruction Type:Provider Instructions for Treatment How to Access Health Informa tion Online using Patient Portal and [employer] Apps Indication:Nonsmoker Start:28-May-2021 Instruction Type:Patient Education Patient Instructions Indication:BMI 40.0-44.9, adult Start:04-Apr-2021 Instruction Type:Provider Instructions for Treatment How to Access Health Informa tion Online using Patient Portal and [employer] Indication:BMI 40.0-44.9, adult Start:04-Apr-2021 Instruction Type:Patient Education Patient Instructions Indication:BMI 40.0-44.9, adult Start:20-Mar-2021 Instruction Type:Provider Instructions for Treatment How to Access Health Informa tion Online using Patient Portal and [employer] Apps Indication:BMI 40.0-44.9, adult Start:20-Mar-2021 Instruction Type:Patient Education Patient Instructions Indication:Type 2 diabetes mellitus Start:13-Dec-2020 Instruction Type:Provider Instructions for Treatment How to Access Health Informa tion Online using Patient Portal and [employer] Apps Indication:Type 2 diabetes mellitus Start:13-Dec-2020 Instruction Type:Patient Education Patient Instructions Indication:Type 2 diabetes mellitus Start:15-Sep-2020 Instruction Type:Provider Instructions for Treatment How to Access Health Informa tion Online using Patient Portal and [employer] Apps Indication:Type 2 diabetes mellitus Start:15-Sep-2020 Instruction Type:Patient Education [facility]; [facility] Work Phone: Instructions* Name Dates Details Patient Instructions Indication:Nonsmoker Start:10-Jun-2022 Instruction Type:Provider Instructions for Treatment How to Access Health Informa tion Online using Patient Portal and [employer] Apps Indication:Nonsmoker Start:10-Jun-2022 Instruction Type:Patient Education Patient Instructions Indication:Nonsmoker Start:10-May-2022 Instruction Type:Provider Instructions for Treatment How to Access Health Informa tion Online using Patient Portal and [employer] Apps Indication:Nonsmoker Start:10-May-2022 Instruction Type:Patient Education Patient Instructions Indication:Nonsmoker Start:14-Mar-2022 Instruction Type:Provider Instructions for Treatment How to Access Health Informa tion Online using Patient Portal and [employer] Apps Indication:Nonsmoker Start:14-Mar-2022 Instruction Type:Patient Education Patient Instructions Indication:Nonsmoker Start:07-Mar-2022 Instruction Type:Provider Instructions for Treatment How to Access Health Informa tion Online using Patient Portal and [employer] Apps Indication:Nonsmoker Start:07-Mar-2022 Instruction Type:Patient Education Patient Instructions Indication:Morbid obesity Start:18-Feb-2022 Instruction Type:Provider Instructions for Treatment How to Access Health Informa tion Online using Patient Portal and [employer] Apps Indication:Morbid obesity Start:18-Feb-2022 Instruction Type:Patient Education Patient Instructions Indication:Morbid obesity Start:31-Dec-2021 Instruction Type:Provider Instructions for Treatment How to Access Health Informa tion Online using Patient Portal and [employer] Apps Indication:Morbid obesity Start:31-Dec-2021 Instruction Type:Patient Education Patient Instructions Indication:BMI 40.0-44.9, adult Start:17-Oct-2021 Instruction Type:Provider Instructions for Treatment How to Access Health Informa tion Online using Patient Portal and [employer] Apps Indication:BMI 40.0-44.9, adult Start:17-Oct-2021 Instruction Type:Patient Education Patient Instructions Indication:BMI 40.0-44.9, adult Start:10-Oct-2021 Instruction Type:Provider Instructions for Treatment How to Access Health Informa tion Online using Patient Portal and [employer] Indication:BMI 40.0-44.9, adult Start:10-Oct-2021 Instruction Type:Patient Education Patient Instructions Indication:Cellulitis Start:03-Oct-2021 Instruction Type:Provider Instructions for Treatment Patient Instructions Indication:BMI 40.0-44.9, adult Start:26-Sep-2021 Instruction Type:Provider Instructions for Treatment How to Access Health Informa tion Online using Patient Portal and [employer] Apps Indication:BMI 40.0-44.9, adult Start:26-Sep-2021 Instruction Type:Patient Education Patient Instructions Indication:Nonsmoker Start:10-Aug-2021 Instruction Type:Provider Instructions for Treatment How to Access Health Informa tion Online using Patient Portal and [employer] Apps Indication:Hypertension Start:10-Aug-2021 Instruction Type:Patient Education Patient Instructions Indication:BMI 40.0-44.9, adult Start:09-Aug-2021 Instruction Type:Provider Instructions for Treatment How to Access Health Informa tion Online using Patient Portal and [employer] Apps Indication:BMI 40.0-44.9, adult Start:09-Aug-2021 Instruction Type:Patient Education Patient Instructions Indication:Nonsmoker Start:28-May-2021 Instruction Type:Provider Instructions for Treatment How to Access Health Informa tion Online using Patient Portal and [employer] Apps Indication:Nonsmoker Start:28-May-2021 Instruction Type:Patient Education Patient Instructions Indication:BMI 40.0-44.9, adult Start:04-Apr-2021 Instruction Type:Provider Instructions for Treatment How to Access Health Informa tion Online using Patient Portal and [employer] Indication:BMI 40.0-44.9, adult Start:04-Apr-2021 Instruction Type:Patient Education Patient Instructions Indication:BMI 40.0-44.9, adult Start:20-Mar-2021 Instruction Type:Provider Instructions for Treatment How to Access Health Informa tion Online using Patient Portal and [employer] Apps Indication:BMI 40.0-44.9, adult Start:20-Mar-2021 Instruction Type:Patient Education Patient Instructions Indication:Type 2 diabetes mellitus Start:13-Dec-2020 Instruction Type:Provider Instructions for Treatment How to Access Health Informa tion Online using Patient Portal and [employer] Apps Indication:Type 2 diabetes mellitus Start:13-Dec-2020 Instruction Type:Patient Education Patient Instructions Indication:Type 2 diabetes mellitus Start:15-Sep-2020 Instruction Type:Provider Instructions for Treatment How to Access Health Informa tion Online using Patient Portal and [employer] Apps Indication:Type 2 diabetes mellitus Start:15-Sep-2020 Instruction Type:Patient Education [facility]; [facility] Work Phone: Instructions* Name Dates Details Patient Instructions Indication:Nonsmoker Start:10-Jun-2022 Instruction Type:Provider Instructions for Treatment How to Access Health Informa tion Online using Patient Portal and [employer] Apps Indication:Nonsmoker Start:10-Jun-2022 Instruction Type:Patient Education Patient Instructions Indication:Nonsmoker Start:10-May-2022 Instruction Type:Provider Instructions for Treatment How to Access Health Informa tion Online using Patient Portal and [employer] Indication:Nonsmoker Start:10-May-2022 Instruction Type:Patient Education Patient Instructions Indication:Nonsmoker Start:14-Mar-2022 Instruction Type:Provider Instructions for Treatment How to Access Health Informa tion Online using Patient Portal and [employer] Apps Indication:Nonsmoker Start:14-Mar-2022 Instruction Type:Patient Education Patient Instructions Indication:Nonsmoker Start:07-Mar-2022 Instruction Type:Provider Instructions for Treatment How to Access Health Informa tion Online using Patient Portal and [employer] Apps Indication:Nonsmoker Start:07-Mar-2022 Instruction Type:Patient Education Patient Instructions Indication:Morbid obesity Start:18-Feb-2022 Instruction Type:Provider Instructions for Treatment How to Access Health Informa tion Online using Patient Portal and [employer] Apps Indication:Morbid obesity Start:18-Feb-2022 Instruction Type:Patient Education Patient Instructions Indication:Morbid obesity Start:31-Dec-2021 Instruction Type:Provider Instructions for Treatment How to Access Health Informa tion Online using Patient Portal and [employer] Apps Indication:Morbid obesity Start:31-Dec-2021 Instruction Type:Patient Education Patient Instructions Indication:BMI 40.0-44.9, adult Start:17-Oct-2021 Instruction Type:Provider Instructions for Treatment How to Access Health Informa tion Online using Patient Portal and [employer] Indication:BMI 40.0-44.9, adult Start:17-Oct-2021 Instruction Type:Patient Education Patient Instructions Indication:BMI 40.0-44.9, adult Start:10-Oct-2021 Instruction Type:Provider Instructions for Treatment How to Access Health Informa tion Online using Patient Portal and [employer] Apps Indication:BMI 40.0-44.9, adult Start:10-Oct-2021 Instruction Type:Patient Education Patient Instructions Indication:Cellulitis Start:03-Oct-2021 Instruction Type:Provider Instructions for Treatment Patient Instructions Indication:BMI 40.0-44.9, adult Start:26-Sep-2021 Instruction Type:Provider Instructions for Treatment How to Access Health Informa tion Online using Patient Portal and [employer] Apps Indication:BMI 40.0-44.9, adult Start:26-Sep-2021 Instruction Type:Patient Education Patient Instructions Indication:Nonsmoker Start:10-Aug-2021 Instruction Type:Provider Instructions for Treatment How to Access Health Informa tion Online using Patient Portal and [employer] Apps Indication:Hypertension Start:10-Aug-2021 Instruction Type:Patient Education Patient Instructions Indication:BMI 40.0-44.9, adult Start:09-Aug-2021 Instruction Type:Provider Instructions for Treatment How to Access Health Informa tion Online using Patient Portal and [employer] Indication:BMI 40.0-44.9, adult Start:09-Aug-2021 Instruction Type:Patient Education Patient Instructions Indication:Nonsmoker Start:28-May-2021 Instruction Type:Provider Instructions for Treatment How to Access Health Informa tion Online using Patient Portal and [employer] Apps Indication:Nonsmoker Start:28-May-2021 Instruction Type:Patient Education Patient Instructions Indication:BMI 40.0-44.9, adult Start:04-Apr-2021 Instruction Type:Provider Instructions for Treatment How to Access Health Informa tion Online using Patient Portal and [employer]rd [employer] Apps Indication:BMI 40.0-44.9, adult Start:04-Apr-2021 Instruction Type:Patient Education Patient Instructions Indication:BMI 40.0-44.9, adult Start:20-Mar-2021 Instruction Type:Provider Instructions for Treatment How to Access Health Informa tion Online using Patient Portal and [employer]rd [employer] Apps Indication:BMI 40.0-44.9, adult Start:20-Mar-2021 Instruction Type:Patient Education Patient Instructions Indication:Type 2 diabetes mellitus Start:13-Dec-2020 Instruction Type:Provider Instructions for Treatment How to Access Health Informa tion Online using Patient Portal and [employer]rd [employer] Apps Indication:Type 2 diabetes mellitus Start:13-Dec-2020 Instruction Type:Patient Education Patient Instructions Indication:Type 2 diabetes mellitus Start:15-Sep-2020 Instruction Type:Provider Instructions for Treatment How to Access Health Informa tion Online using Patient Portal and [employer] Apps Indication:Type 2 diabetes mellitus Start:15-Sep-2020 Instruction Type:Patient Education [facility]; [facility] Work Phone: Instructions* Name Dates Details Patient Instructions Indication:Nonsmoker Start:10-Jun-2022 Instruction Type:Provider Instructions for Treatment How to Access Health Informa tion Online using Patient Portal and [employer] Apps Indication:Nonsmoker Start:10-Jun-2022 Instruction Type:Patient Education Patient Instructions Indication:Nonsmoker Start:10-May-2022 Instruction Type:Provider Instructions for Treatment How to Access Health Informa tion Online using Patient Portal and [employer] Apps Indication:Nonsmoker Start:10-May-2022 Instruction Type:Patient Education Patient Instructions Indication:Nonsmoker Start:14-Mar-2022 Instruction Type:Provider Instructions for Treatment How to Access Health Informa tion Online using Patient Portal and [employer] Apps Indication:Nonsmoker Start:14-Mar-2022 Instruction Type:Patient Education Patient Instructions Indication:Nonsmoker Start:07-Mar-2022 Instruction Type:Provider Instructions for Treatment How to Access Health Informa tion Online using Patient Portal and [employer] Apps Indication:Nonsmoker Start:07-Mar-2022 Instruction Type:Patient Education Patient Instructions Indication:Morbid obesity Start:18-Feb-2022 Instruction Type:Provider Instructions for Treatment How to Access Health Informa tion Online using Patient Portal and [employer] Apps Indication:Morbid obesity Start:18-Feb-2022 Instruction Type:Patient Education Patient Instructions Indication:Morbid obesity Start:31-Dec-2021 Instruction Type:Provider Instructions for Treatment How to Access Health Informa tion Online using Patient Portal and [employer] Apps Indication:Morbid obesity Start:31-Dec-2021 Instruction Type:Patient Education Patient Instructions Indication:BMI 40.0-44.9, adult Start:17-Oct-2021 Instruction Type:Provider Instructions for Treatment How to Access Health Informa tion Online using Patient Portal and [employer] Apps Indication:BMI 40.0-44.9, adult Start:17-Oct-2021 Instruction Type:Patient Education Patient Instructions Indication:BMI 40.0-44.9, adult Start:10-Oct-2021 Instruction Type:Provider Instructions for Treatment How to Access Health Informa tion Online using Patient Portal and [employer] Apps Indication:BMI 40.0-44.9, adult Start:10-Oct-2021 Instruction Type:Patient Education Patient Instructions Indication:Cellulitis Start:03-Oct-2021 Instruction Type:Provider Instructions for Treatment Patient Instructions Indication:BMI 40.0-44.9, adult Start:26-Sep-2021 Instruction Type:Provider Instructions for Treatment How to Access Health Informa tion Online using Patient Portal and [employer] Apps Indication:BMI 40.0-44.9, adult Start:26-Sep-2021 Instruction Type:Patient Education Patient Instructions Indication:Nonsmoker Start:10-Aug-2021 Instruction Type:Provider Instructions for Treatment How to Access Health Informa tion Online using Patient Portal and [employer] Apps Indication:Hypertension Start:10-Aug-2021 Instruction Type:Patient Education Patient Instructions Indication:BMI 40.0-44.9, adult Start:09-Aug-2021 Instruction Type:Provider Instructions for Treatment How to Access Health Informa tion Online using Patient Portal and [employer] Apps Indication:BMI 40.0-44.9, adult Start:09-Aug-2021 Instruction Type:Patient Education Patient Instructions Indication:Nonsmoker Start:28-May-2021 Instruction Type:Provider Instructions for Treatment How to Access Health Informa tion Online using Patient Portal and [employer] Apps Indication:Nonsmoker Start:28-May-2021 Instruction Type:Patient Education Patient Instructions Indication:BMI 40.0-44.9, adult Start:04-Apr-2021 Instruction Type:Provider Instructions for Treatment How to Access Health Informa tion Online using Patient Portal and [employer] Apps Indication:BMI 40.0-44.9, adult Start:04-Apr-2021 Instruction Type:Patient Education Patient Instructions Indication:BMI 40.0-44.9, adult Start:20-Mar-2021 Instruction Type:Provider Instructions for Treatment How to Access Health Informa tion Online using Patient Portal and [employer] Apps Indication:BMI 40.0-44.9, adult Start:20-Mar-2021 Instruction Type:Patient Education Patient Instructions Indication:Type 2 diabetes mellitus Start:13-Dec-2020 Instruction Type:Provider Instructions for Treatment How to Access Health Informa tion Online using Patient Portal and [employer] Apps Indication:Type 2 diabetes mellitus Start:13-Dec-2020 Instruction Type:Patient Education Patient Instructions Indication:Type 2 diabetes mellitus Start:15-Sep-2020 Instruction Type:Provider Instructions for Treatment How to Access Health Informa tion Online using Patient Portal and [employer] Apps Indication:Type 2 diabetes mellitus Start:15-Sep-2020 Instruction Type:Patient Education [facility]; [facility] Work Phone: Instructions* Name Dates Details Patient Instructions Indication:Nonsmoker Start:10-Jun-2022 Instruction Type:Provider Instructions for Treatment How to Access Health Informa tion Online using Patient Portal and [employer] Apps Indication:Nonsmoker Start:10-Jun-2022 Instruction Type:Patient Education Patient Instructions Indication:Nonsmoker Start:10-May-2022 Instruction Type:Provider Instructions for Treatment How to Access Health Informa tion Online using Patient Portal and [employer] Apps Indication:Nonsmoker Start:10-May-2022 Instruction Type:Patient Education Patient Instructions Indication:Nonsmoker Start:14-Mar-2022 Instruction Type:Provider Instructions for Treatment How to Access Health Informa tion Online using Patient Portal and [employer] Apps Indication:Nonsmoker Start:14-Mar-2022 Instruction Type:Patient Education Patient Instructions Indication:Nonsmoker Start:07-Mar-2022 Instruction Type:Provider Instructions for Treatment How to Access Health Informa tion Online using Patient Portal and [employer] Apps Indication:Nonsmoker Start:07-Mar-2022 Instruction Type:Patient Education Patient Instructions Indication:Morbid obesity Start:18-Feb-2022 Instruction Type:Provider Instructions for Treatment How to Access Health Informa tion Online using Patient Portal and [employer] Apps Indication:Morbid obesity Start:18-Feb-2022 Instruction Type:Patient Education Patient Instructions Indication:Morbid obesity Start:31-Dec-2021 Instruction Type:Provider Instructions for Treatment How to Access Health Informa tion Online using Patient Portal and [employer] Apps Indication:Morbid obesity Start:31-Dec-2021 Instruction Type:Patient Education Patient Instructions Indication:BMI 40.0-44.9, adult Start:17-Oct-2021 Instruction Type:Provider Instructions for Treatment How to Access Health Informa tion Online using Patient Portal and [employer] Apps Indication:BMI 40.0-44.9, adult Start:17-Oct-2021 Instruction Type:Patient Education Patient Instructions Indication:BMI 40.0-44.9, adult Start:10-Oct-2021 Instruction Type:Provider Instructions for Treatment How to Access Health Informa tion Online using Patient Portal and [employer] Apps Indication:BMI 40.0-44.9, adult Start:10-Oct-2021 Instruction Type:Patient Education Patient Instructions Indication:Cellulitis Start:03-Oct-2021 Instruction Type:Provider Instructions for Treatment Patient Instructions Indication:BMI 40.0-44.9, adult Start:26-Sep-2021 Instruction Type:Provider Instructions for Treatment How to Access Health Informa tion Online using Patient Portal and [employer] Apps Indication:BMI 40.0-44.9, adult Start:26-Sep-2021 Instruction Type:Patient Education Patient Instructions Indication:Nonsmoker Start:10-Aug-2021 Instruction Type:Provider Instructions for Treatment How to Access Health Informa tion Online using Patient Portal and [employer] Apps Indication:Hypertension Start:10-Aug-2021 Instruction Type:Patient Education Patient Instructions Indication:BMI 40.0-44.9, adult Start:09-Aug-2021 Instruction Type:Provider Instructions for Treatment How to Access Health Informa tion Online using Patient Portal and [employer] Apps Indication:BMI 40.0-44.9, adult Start:09-Aug-2021 Instruction Type:Patient Education Patient Instructions Indication:Nonsmoker Start:28-May-2021 Instruction Type:Provider Instructions for Treatment How to Access Health Informa tion Online using Patient Portal and [employer] Apps Indication:Nonsmoker Start:28-May-2021 Instruction Type:Patient Education Patient Instructions Indication:BMI 40.0-44.9, adult Start:04-Apr-2021 Instruction Type:Provider Instructions for Treatment How to Access Health Informa tion Online using Patient Portal and [employer] Apps Indication:BMI 40.0-44.9, adult Start:04-Apr-2021 Instruction Type:Patient Education Patient Instructions Indication:BMI 40.0-44.9, adult Start:20-Mar-2021 Instruction Type:Provider Instructions for Treatment How to Access Health Informa tion Online using Patient Portal and [employer] Apps Indication:BMI 40.0-44.9, adult Start:20-Mar-2021 Instruction Type:Patient Education Patient Instructions Indication:Type 2 diabetes mellitus Start:13-Dec-2020 Instruction Type:Provider Instructions for Treatment How to Access Health Informa tion Online using Patient Portal and [employer] Apps Indication:Type 2 diabetes mellitus Start:13-Dec-2020 Instruction Type:Patient Education Patient Instructions Indication:Type 2 diabetes mellitus Start:15-Sep-2020 Instruction Type:Provider Instructions for Treatment How to Access Health Informa tion Online using Patient Portal and [employer] Apps Indication:Type 2 diabetes mellitus Start:15-Sep-2020 Instruction Type:Patient Education [facility]; [facility] Work Phone: Instructions* Name Dates Details Patient Instructions Indication:Nonsmoker Start:10-Jun-2022 Instruction Type:Provider Instructions for Treatment How to Access Health Informa tion Online using Patient Portal and [employer] Apps Indication:Nonsmoker Start:10-Jun-2022 Instruction Type:Patient Education Patient Instructions Indication:Nonsmoker Start:10-May-2022 Instruction Type:Provider Instructions for Treatment How to Access Health Informa tion Online using Patient Portal and [employer] Apps Indication:Nonsmoker Start:10-May-2022 Instruction Type:Patient Education Patient Instructions Indication:Nonsmoker Start:14-Mar-2022 Instruction Type:Provider Instructions for Treatment How to Access Health Informa tion Online using Patient Portal and [employer] Apps Indication:Nonsmoker Start:14-Mar-2022 Instruction Type:Patient Education Patient Instructions Indication:Nonsmoker Start:07-Mar-2022 Instruction Type:Provider Instructions for Treatment How to Access Health Informa tion Online using Patient Portal and [employer] Apps Indication:Nonsmoker Start:07-Mar-2022 Instruction Type:Patient Education Patient Instructions Indication:Morbid obesity Start:18-Feb-2022 Instruction Type:Provider Instructions for Treatment How to Access Health Informa tion Online using Patient Portal and [employer] Apps Indication:Morbid obesity Start:18-Feb-2022 Instruction Type:Patient Education Patient Instructions Indication:Morbid obesity Start:31-Dec-2021 Instruction Type:Provider Instructions for Treatment How to Access Health Informa tion Online using Patient Portal and [employer] Apps Indication:Morbid obesity Start:31-Dec-2021 Instruction Type:Patient Education Patient Instructions Indication:BMI 40.0-44.9, adult Start:17-Oct-2021 Instruction Type:Provider Instructions for Treatment How to Access Health Informa tion Online using Patient Portal and [employer] Apps Indication:BMI 40.0-44.9, adult Start:17-Oct-2021 Instruction Type:Patient Education Patient Instructions Indication:BMI 40.0-44.9, adult Start:10-Oct-2021 Instruction Type:Provider Instructions for Treatment How to Access Health Informa tion Online using Patient Portal and [employer] Apps Indication:BMI 40.0-44.9, adult Start:10-Oct-2021 Instruction Type:Patient Education Patient Instructions Indication:Cellulitis Start:03-Oct-2021 Instruction Type:Provider Instructions for Treatment Patient Instructions Indication:BMI 40.0-44.9, adult Start:26-Sep-2021 Instruction Type:Provider Instructions for Treatment How to Access Health Informa tion Online using Patient Portal and [employer] Apps Indication:BMI 40.0-44.9, adult Start:26-Sep-2021 Instruction Type:Patient Education Patient Instructions Indication:Nonsmoker Start:10-Aug-2021 Instruction Type:Provider Instructions for Treatment How to Access Health Informa tion Online using Patient Portal and [employer] Apps Indication:Hypertension Start:10-Aug-2021 Instruction Type:Patient Education Patient Instructions Indication:BMI 40.0-44.9, adult Start:09-Aug-2021 Instruction Type:Provider Instructions for Treatment How to Access Health Informa tion Online using Patient Portal and [employer] Apps Indication:BMI 40.0-44.9, adult Start:09-Aug-2021 Instruction Type:Patient Education Patient Instructions Indication:Nonsmoker Start:28-May-2021 Instruction Type:Provider Instructions for Treatment How to Access Health Informa tion Online using Patient Portal and [employer] Apps Indication:Nonsmoker Start:28-May-2021 Instruction Type:Patient Education Patient Instructions Indication:BMI 40.0-44.9, adult Start:04-Apr-2021 Instruction Type:Provider Instructions for Treatment How to Access Health Informa tion Online using Patient Portal and [employer] Apps Indication:BMI 40.0-44.9, adult Start:04-Apr-2021 Instruction Type:Patient Education Patient Instructions Indication:BMI 40.0-44.9, adult Start:20-Mar-2021 Instruction Type:Provider Instructions for Treatment How to Access Health Informa tion Online using Patient Portal and [employer] Apps Indication:BMI 40.0-44.9, adult Start:20-Mar-2021 Instruction Type:Patient Education Patient Instructions Indication:Type 2 diabetes mellitus Start:13-Dec-2020 Instruction Type:Provider Instructions for Treatment How to Access Health Informa tion Online using Patient Portal and [employer] Apps Indication:Type 2 diabetes mellitus Start:13-Dec-2020 Instruction Type:Patient Education Patient Instructions Indication:Type 2 diabetes mellitus Start:15-Sep-2020 Instruction Type:Provider Instructions for Treatment How to Access Health Informa tion Online using Patient Portal and [employer] Apps Indication:Type 2 diabetes mellitus Start:15-Sep-2020 Instruction Type:Patient Education [facility]; [facility] Work Phone: Instructions* Name Dates Details Patient Instructions Indication:Nonsmoker Start:10-Jun-2022 Instruction Type:Provider Instructions for Treatment How to Access Health Informa tion Online using Patient Portal and [employer] Apps Indication:Nonsmoker Start:10-Jun-2022 Instruction Type:Patient Education Patient Instructions Indication:Nonsmoker Start:10-May-2022 Instruction Type:Provider Instructions for Treatment How to Access Health Informa tion Online using Patient Portal and [employer] Apps Indication:Nonsmoker Start:10-May-2022 Instruction Type:Patient Education Patient Instructions Indication:Nonsmoker Start:14-Mar-2022 Instruction Type:Provider Instructions for Treatment How to Access Health Informa tion Online using Patient Portal and [employer] Apps Indication:Nonsmoker Start:14-Mar-2022 Instruction Type:Patient Education Patient Instructions Indication:Nonsmoker Start:07-Mar-2022 Instruction Type:Provider Instructions for Treatment How to Access Health Informa tion Online using Patient Portal and [employer] Apps Indication:Nonsmoker Start:07-Mar-2022 Instruction Type:Patient Education Patient Instructions Indication:Morbid obesity Start:18-Feb-2022 Instruction Type:Provider Instructions for Treatment How to Access Health Informa tion Online using Patient Portal and [employer] Apps Indication:Morbid obesity Start:18-Feb-2022 Instruction Type:Patient Education Patient Instructions Indication:Morbid obesity Start:31-Dec-2021 Instruction Type:Provider Instructions for Treatment How to Access Health Informa tion Online using Patient Portal and [employer] Apps Indication:Morbid obesity Start:31-Dec-2021 Instruction Type:Patient Education Patient Instructions Indication:BMI 40.0-44.9, adult Start:17-Oct-2021 Instruction Type:Provider Instructions for Treatment How to Access Health Informa tion Online using Patient Portal and [employer] Apps Indication:BMI 40.0-44.9, adult Start:17-Oct-2021 Instruction Type:Patient Education Patient Instructions Indication:BMI 40.0-44.9, adult Start:10-Oct-2021 Instruction Type:Provider Instructions for Treatment How to Access Health Informa tion Online using Patient Portal and [employer] Apps Indication:BMI 40.0-44.9, adult Start:10-Oct-2021 Instruction Type:Patient Education Patient Instructions Indication:Cellulitis Start:03-Oct-2021 Instruction Type:Provider Instructions for Treatment Patient Instructions Indication:BMI 40.0-44.9, adult Start:26-Sep-2021 Instruction Type:Provider Instructions for Treatment How to Access Health Informa tion Online using Patient Portal and [employer] Apps Indication:BMI 40.0-44.9, adult Start:26-Sep-2021 Instruction Type:Patient Education Patient Instructions Indication:Nonsmoker Start:10-Aug-2021 Instruction Type:Provider Instructions for Treatment How to Access Health Informa tion Online using Patient Portal and [employer] Apps Indication:Hypertension Start:10-Aug-2021 Instruction Type:Patient Education Patient Instructions Indication:BMI 40.0-44.9, adult Start:09-Aug-2021 Instruction Type:Provider Instructions for Treatment How to Access Health Informa tion Online using Patient Portal and [employer] Apps Indication:BMI 40.0-44.9, adult Start:09-Aug-2021 Instruction Type:Patient Education Patient Instructions Indication:Nonsmoker Start:28-May-2021 Instruction Type:Provider Instructions for Treatment How to Access Health Informa tion Online using Patient Portal and [employer] Apps Indication:Nonsmoker Start:28-May-2021 Instruction Type:Patient Education Patient Instructions Indication:BMI 40.0-44.9, adult Start:04-Apr-2021 Instruction Type:Provider Instructions for Treatment How to Access Health Informa tion Online using Patient Portal and [employer] Apps Indication:BMI 40.0-44.9, adult Start:04-Apr-2021 Instruction Type:Patient Education Patient Instructions Indication:BMI 40.0-44.9, adult Start:20-Mar-2021 Instruction Type:Provider Instructions for Treatment How to Access Health Informa tion Online using Patient Portal and [employer] Apps Indication:BMI 40.0-44.9, adult Start:20-Mar-2021 Instruction Type:Patient Education Patient Instructions Indication:Type 2 diabetes mellitus Start:13-Dec-2020 Instruction Type:Provider Instructions for Treatment How to Access Health Informa tion Online using Patient Portal and [employer] Apps Indication:Type 2 diabetes mellitus Start:13-Dec-2020 Instruction Type:Patient Education Patient Instructions Indication:Type 2 diabetes mellitus Start:15-Sep-2020 Instruction Type:Provider Instructions for Treatment How to Access Health Informa tion Online using Patient Portal and [employer] Apps Indication:Type 2 diabetes mellitus Start:15-Sep-2020 Instruction Type:Patient Education [facility]; [facility] Work Phone: Instructions* Name Dates Details Patient Instructions Indication:BMI 45.0-49.9, adult Start:10-Jul-2022 Instruction Type:Provider Instructions for Treatment How to Access Health Informa tion Online using Patient Portal and [employer] Apps Indication:BMI 45.0-49.9, adult Start:10-Jul-2022 Instruction Type:Patient Education Patient Instructions Indication:Nonsmoker Start:10-Jun-2022 Instruction Type:Provider Instructions for Treatment How to Access Health Informa tion Online using Patient Portal and [employer] Apps Indication:Nonsmoker Start:10-Jun-2022 Instruction Type:Patient Education Patient Instructions Indication:Nonsmoker Start:10-May-2022 Instruction Type:Provider Instructions for Treatment How to Access Health Informa tion Online using Patient Portal and [employer] Apps Indication:Nonsmoker Start:10-May-2022 Instruction Type:Patient Education Patient Instructions Indication:Nonsmoker Start:14-Mar-2022 Instruction Type:Provider Instructions for Treatment How to Access Health Informa tion Online using Patient Portal and [employer] Apps Indication:Nonsmoker Start:14-Mar-2022 Instruction Type:Patient Education Patient Instructions Indication:Nonsmoker Start:07-Mar-2022 Instruction Type:Provider Instructions for Treatment How to Access Health Informa tion Online using Patient Portal and [employer] Apps Indication:Nonsmoker Start:07-Mar-2022 Instruction Type:Patient Education Patient Instructions Indication:Morbid obesity Start:18-Feb-2022 Instruction Type:Provider Instructions for Treatment How to Access Health Informa tion Online using Patient Portal and [employer] Apps Indication:Morbid obesity Start:18-Feb-2022 Instruction Type:Patient Education Patient Instructions Indication:Morbid obesity Start:31-Dec-2021 Instruction Type:Provider Instructions for Treatment How to Access Health Informa tion Online using Patient Portal and [employer] Apps Indication:Morbid obesity Start:31-Dec-2021 Instruction Type:Patient Education Patient Instructions Indication:BMI 40.0-44.9, adult Start:17-Oct-2021 Instruction Type:Provider Instructions for Treatment How to Access Health Informa tion Online using Patient Portal and [employer] Apps Indication:BMI 40.0-44.9, adult Start:17-Oct-2021 Instruction Type:Patient Education Patient Instructions Indication:BMI 40.0-44.9, adult Start:10-Oct-2021 Instruction Type:Provider Instructions for Treatment How to Access Health Informa tion Online using Patient Portal and [employer] Apps Indication:BMI 40.0-44.9, adult Start:10-Oct-2021 Instruction Type:Patient Education Patient Instructions Indication:Cellulitis Start:03-Oct-2021 Instruction Type:Provider Instructions for Treatment Patient Instructions Indication:BMI 40.0-44.9, adult Start:26-Sep-2021 Instruction Type:Provider Instructions for Treatment How to Access Health Informa tion Online using Patient Portal and [employer] Apps Indication:BMI 40.0-44.9, adult Start:26-Sep-2021 Instruction Type:Patient Education Patient Instructions Indication:Nonsmoker Start:10-Aug-2021 Instruction Type:Provider Instructions for Treatment How to Access Health Informa tion Online using Patient Portal and [employer] Indication:Hypertension Start:10-Aug-2021 Instruction Type:Patient Education Patient Instructions Indication:BMI 40.0-44.9, adult Start:09-Aug-2021 Instruction Type:Provider Instructions for Treatment How to Access Health Informa tion Online using Patient Portal and [employer] Indication:BMI 40.0-44.9, adult Start:09-Aug-2021 Instruction Type:Patient Education Patient Instructions Indication:Nonsmoker Start:28-May-2021 Instruction Type:Provider Instructions for Treatment How to Access Health Informa tion Online using Patient Portal and [employer] Indication:Nonsmoker Start:28-May-2021 Instruction Type:Patient Education Patient Instructions Indication:BMI 40.0-44.9, adult Start:04-Apr-2021 Instruction Type:Provider Instructions for Treatment How to Access Health Informa tion Online using Patient Portal and [employer] Indication:BMI 40.0-44.9, adult Start:04-Apr-2021 Instruction Type:Patient Education Patient Instructions Indication:BMI 40.0-44.9, adult Start:20-Mar-2021 Instruction Type:Provider Instructions for Treatment How to Access Health Informa tion Online using Patient Portal and [employer] Indication:BMI 40.0-44.9, adult Start:20-Mar-2021 Instruction Type:Patient Education Patient Instructions Indication:Type 2 diabetes mellitus Start:13-Dec-2020 Instruction Type:Provider Instructions for Treatment How to Access Health Informa tion Online using Patient Portal and [employer] Indication:Type 2 diabetes mellitus Start:13-Dec-2020 Instruction Type:Patient Education Patient Instructions Indication:Type 2 diabetes mellitus Start:15-Sep-2020 Instruction Type:Provider Instructions for Treatment How to Access Health Informa tion Online using Patient Portal and [employer] Indication:Type 2 diabetes mellitus Start:15-Sep-2020 Instruction Type:Patient Education [facility]; [facility] Work Phone: Instructions* Name Dates Details Patient Instructions Indication:BMI 40.0-44.9, adult Start:25-Jul-2022 Instruction Type:Provider Instructions for Treatment How to Access Health Informa tion Online using Patient Portal and [employer] Indication:BMI 40.0-44.9, adult Start:25-Jul-2022 Instruction Type:Patient Education Patient Instructions Indication:BMI 45.0-49.9, adult Start:10-Jul-2022 Instruction Type:Provider Instructions for Treatment How to Access Health Informa tion Online using Patient Portal and [employer] Indication:BMI 45.0-49.9, adult Start:10-Jul-2022 Instruction Type:Patient Education Patient Instructions Indication:Nonsmoker Start:10-Jun-2022 Instruction Type:Provider Instructions for Treatment How to Access Health Informa tion Online using Patient Portal and [employer] Indication:Nonsmoker Start:10-Jun-2022 Instruction Type:Patient Education Patient Instructions Indication:Nonsmoker Start:10-May-2022 Instruction Type:Provider Instructions for Treatment How to Access Health Informa tion Online using Patient Portal and [employer] Indication:Nonsmoker Start:10-May-2022 Instruction Type:Patient Education Patient Instructions Indication:Nonsmoker Start:14-Mar-2022 Instruction Type:Provider Instructions for Treatment How to Access Health Informa tion Online using Patient Portal and [employer] Indication:Nonsmoker Start:14-Mar-2022 Instruction Type:Patient Education Patient Instructions Indication:Nonsmoker Start:07-Mar-2022 Instruction Type:Provider Instructions for Treatment How to Access Health Informa tion Online using Patient Portal and [employer] Indication:Nonsmoker Start:07-Mar-2022 Instruction Type:Patient Education Patient Instructions Indication:Morbid obesity Start:18-Feb-2022 Instruction Type:Provider Instructions for Treatment How to Access Health Informa tion Online using Patient Portal and [employer] Indication:Morbid obesity Start:18-Feb-2022 Instruction Type:Patient Education Patient Instructions Indication:Morbid obesity Start:31-Dec-2021 Instruction Type:Provider Instructions for Treatment How to Access Health Informa tion Online using Patient Portal and [employer] Indication:Morbid obesity Start:31-Dec-2021 Instruction Type:Patient Education Patient Instructions Indication:BMI 40.0-44.9, adult Start:17-Oct-2021 Instruction Type:Provider Instructions for Treatment How to Access Health Informa tion Online using Patient Portal and [employer] Indication:BMI 40.0-44.9, adult Start:17-Oct-2021 Instruction Type:Patient Education Patient Instructions Indication:BMI 40.0-44.9, adult Start:10-Oct-2021 Instruction Type:Provider Instructions for Treatment How to Access Health Informa tion Online using Patient Portal and [employer] Indication:BMI 40.0-44.9, adult Start:10-Oct-2021 Instruction Type:Patient Education Patient Instructions Indication:Cellulitis Start:03-Oct-2021 Instruction Type:Provider Instructions for Treatment Patient Instructions Indication:BMI 40.0-44.9, adult Start:26-Sep-2021 Instruction Type:Provider Instructions for Treatment How to Access Health Informa tion Online using Patient Portal and [employer] Indication:BMI 40.0-44.9, adult Start:26-Sep-2021 Instruction Type:Patient Education Patient Instructions Indication:Nonsmoker Start:10-Aug-2021 Instruction Type:Provider Instructions for Treatment How to Access Health Informa tion Online using Patient Portal and [employer] Indication:Hypertension Start:10-Aug-2021 Instruction Type:Patient Education Patient Instructions Indication:BMI 40.0-44.9, adult Start:09-Aug-2021 Instruction Type:Provider Instructions for Treatment How to Access Health Informa tion Online using Patient Portal and [employer] Indication:BMI 40.0-44.9, adult Start:09-Aug-2021 Instruction Type:Patient Education Patient Instructions Indication:Nonsmoker Start:28-May-2021 Instruction Type:Provider Instructions for Treatment How to Access Health Informa tion Online using Patient Portal and [employer] Indication:Nonsmoker Start:28-May-2021 Instruction Type:Patient Education Patient Instructions Indication:BMI 40.0-44.9, adult Start:04-Apr-2021 Instruction Type:Provider Instructions for Treatment How to Access Health Informa tion Online using Patient Portal and [employer] Indication:BMI 40.0-44.9, adult Start:04-Apr-2021 Instruction Type:Patient Education Patient Instructions Indication:BMI 40.0-44.9, adult Start:20-Mar-2021 Instruction Type:Provider Instructions for Treatment How to Access Health Informa tion Online using Patient Portal and [employer] Indication:BMI 40.0-44.9, adult Start:20-Mar-2021 Instruction Type:Patient Education Patient Instructions Indication:Type 2 diabetes mellitus Start:13-Dec-2020 Instruction Type:Provider Instructions for Treatment How to Access Health Informa tion Online using Patient Portal and [employer] Indication:Type 2 diabetes mellitus Start:13-Dec-2020 Instruction Type:Patient Education Patient Instructions Indication:Type 2 diabetes mellitus Start:15-Sep-2020 Instruction Type:Provider Instructions for Treatment How to Access Health Informa tion Online using Patient Portal and [employer] Indication:Type 2 diabetes mellitus Start:15-Sep-2020 Instruction Type:Patient Education [facility]; [facility] Work Phone: Instructions* Name Dates Details Patient Instructions Indication:BMI 40.0-44.9, adult Start:25-Jul-2022 Instruction Type:Provider Instructions for Treatment How to Access Health Informa tion Online using Patient Portal and [employer] Indication:BMI 40.0-44.9, adult Start:25-Jul-2022 Instruction Type:Patient Education Patient Instructions Indication:BMI 45.0-49.9, adult Start:10-Jul-2022 Instruction Type:Provider Instructions for Treatment How to Access Health Informa tion Online using Patient Portal and [employer] Indication:BMI 45.0-49.9, adult Start:10-Jul-2022 Instruction Type:Patient Education Patient Instructions Indication:Nonsmoker Start:10-Jun-2022 Instruction Type:Provider Instructions for Treatment How to Access Health Informa tion Online using Patient Portal and [employer] Indication:Nonsmoker Start:10-Jun-2022 Instruction Type:Patient Education Patient Instructions Indication:Nonsmoker Start:10-May-2022 Instruction Type:Provider Instructions for Treatment How to Access Health Informa tion Online using Patient Portal and [employer] Indication:Nonsmoker Start:10-May-2022 Instruction Type:Patient Education Patient Instructions Indication:Nonsmoker Start:14-Mar-2022 Instruction Type:Provider Instructions for Treatment How to Access Health Informa tion Online using Patient Portal and [employer] Indication:Nonsmoker Start:14-Mar-2022 Instruction Type:Patient Education Patient Instructions Indication:Nonsmoker Start:07-Mar-2022 Instruction Type:Provider Instructions for Treatment How to Access Health Informa tion Online using Patient Portal and [employer] Indication:Nonsmoker Start:07-Mar-2022 Instruction Type:Patient Education Patient Instructions Indication:Morbid obesity Start:18-Feb-2022 Instruction Type:Provider Instructions for Treatment How to Access Health Informa tion Online using Patient Portal and [employer] Indication:Morbid obesity Start:18-Feb-2022 Instruction Type:Patient Education Patient Instructions Indication:Morbid obesity Start:31-Dec-2021 Instruction Type:Provider Instructions for Treatment How to Access Health Informa tion Online using Patient Portal and [employer] Indication:Morbid obesity Start:31-Dec-2021 Instruction Type:Patient Education Patient Instructions Indication:BMI 40.0-44.9, adult Start:17-Oct-2021 Instruction Type:Provider Instructions for Treatment How to Access Health Informa tion Online using Patient Portal and [employer] Indication:BMI 40.0-44.9, adult Start:17-Oct-2021 Instruction Type:Patient Education Patient Instructions Indication:BMI 40.0-44.9, adult Start:10-Oct-2021 Instruction Type:Provider Instructions for Treatment How to Access Health Informa tion Online using Patient Portal and [employer] Indication:BMI 40.0-44.9, adult Start:10-Oct-2021 Instruction Type:Patient Education Patient Instructions Indication:Cellulitis Start:03-Oct-2021 Instruction Type:Provider Instructions for Treatment Patient Instructions Indication:BMI 40.0-44.9, adult Start:26-Sep-2021 Instruction Type:Provider Instructions for Treatment How to Access Health Informa tion Online using Patient Portal and [employer] Indication:BMI 40.0-44.9, adult Start:26-Sep-2021 Instruction Type:Patient Education Patient Instructions Indication:Nonsmoker Start:10-Aug-2021 Instruction Type:Provider Instructions for Treatment How to Access Health Informa tion Online using Patient Portal and [employer] Indication:Hypertension Start:10-Aug-2021 Instruction Type:Patient Education Patient Instructions Indication:BMI 40.0-44.9, adult Start:09-Aug-2021 Instruction Type:Provider Instructions for Treatment How to Access Health Informa tion Online using Patient Portal and [employer] Indication:BMI 40.0-44.9, adult Start:09-Aug-2021 Instruction Type:Patient Education Patient Instructions Indication:Nonsmoker Start:28-May-2021 Instruction Type:Provider Instructions for Treatment How to Access Health Informa tion Online using Patient Portal and [employer] Indication:Nonsmoker Start:28-May-2021 Instruction Type:Patient Education Patient Instructions Indication:BMI 40.0-44.9, adult Start:04-Apr-2021 Instruction Type:Provider Instructions for Treatment How to Access Health Informa tion Online using Patient Portal and [employer] Indication:BMI 40.0-44.9, adult Start:04-Apr-2021 Instruction Type:Patient Education Patient Instructions Indication:BMI 40.0-44.9, adult Start:20-Mar-2021 Instruction Type:Provider Instructions for Treatment How to Access Health Informa tion Online using Patient Portal and [employer] Indication:BMI 40.0-44.9, adult Start:20-Mar-2021 Instruction Type:Patient Education Patient Instructions Indication:Type 2 diabetes mellitus Start:13-Dec-2020 Instruction Type:Provider Instructions for Treatment How to Access Health Informa tion Online using Patient Portal and [employer] Indication:Type 2 diabetes mellitus Start:13-Dec-2020 Instruction Type:Patient Education Patient Instructions Indication:Type 2 diabetes mellitus Start:15-Sep-2020 Instruction Type:Provider Instructions for Treatment How to Access Health Informa tion Online using Patient Portal and [employer] Indication:Type 2 diabetes mellitus Start:15-Sep-2020 Instruction Type:Patient Education [facility]; [facility] Work Phone: Instructions* Name Dates Details Patient Instructions Indication:BMI 40.0-44.9, adult Start:25-Jul-2022 Instruction Type:Provider Instructions for Treatment How to Access Health Informa tion Online using Patient Portal and [employer] Indication:BMI 40.0-44.9, adult Start:25-Jul-2022 Instruction Type:Patient Education Patient Instructions Indication:BMI 45.0-49.9, adult Start:10-Jul-2022 Instruction Type:Provider Instructions for Treatment How to Access Health Informa tion Online using Patient Portal and [employer] Indication:BMI 45.0-49.9, adult Start:10-Jul-2022 Instruction Type:Patient Education Patient Instructions Indication:Nonsmoker Start:10-Jun-2022 Instruction Type:Provider Instructions for Treatment How to Access Health Informa tion Online using Patient Portal and [employer] Apps Indication:Nonsmoker Start:10-Jun-2022 Instruction Type:Patient Education Patient Instructions Indication:Nonsmoker Start:10-May-2022 Instruction Type:Provider Instructions for Treatment How to Access Health Informa tion Online using Patient Portal and [employer] Indication:Nonsmoker Start:10-May-2022 Instruction Type:Patient Education Patient Instructions Indication:Nonsmoker Start:14-Mar-2022 Instruction Type:Provider Instructions for Treatment How to Access Health Informa tion Online using Patient Portal and [employer] Indication:Nonsmoker Start:14-Mar-2022 Instruction Type:Patient Education Patient Instructions Indication:Nonsmoker Start:07-Mar-2022 Instruction Type:Provider Instructions for Treatment How to Access Health Informa tion Online using Patient Portal and [employer] Indication:Nonsmoker Start:07-Mar-2022 Instruction Type:Patient Education Patient Instructions Indication:Morbid obesity Start:18-Feb-2022 Instruction Type:Provider Instructions for Treatment How to Access Health Informa tion Online using Patient Portal and [employer] Indication:Morbid obesity Start:18-Feb-2022 Instruction Type:Patient Education Patient Instructions Indication:Morbid obesity Start:31-Dec-2021 Instruction Type:Provider Instructions for Treatment How to Access Health Informa tion Online using Patient Portal and [employer] Indication:Morbid obesity Start:31-Dec-2021 Instruction Type:Patient Education Patient Instructions Indication:BMI 40.0-44.9, adult Start:17-Oct-2021 Instruction Type:Provider Instructions for Treatment How to Access Health Informa tion Online using Patient Portal and [employer] Indication:BMI 40.0-44.9, adult Start:17-Oct-2021 Instruction Type:Patient Education Patient Instructions Indication:BMI 40.0-44.9, adult Start:10-Oct-2021 Instruction Type:Provider Instructions for Treatment How to Access Health Informa tion Online using Patient Portal and [employer] Indication:BMI 40.0-44.9, adult Start:10-Oct-2021 Instruction Type:Patient Education Patient Instructions Indication:Cellulitis Start:03-Oct-2021 Instruction Type:Provider Instructions for Treatment Patient Instructions Indication:BMI 40.0-44.9, adult Start:26-Sep-2021 Instruction Type:Provider Instructions for Treatment How to Access Health Informa tion Online using Patient Portal and [employer] Indication:BMI 40.0-44.9, adult Start:26-Sep-2021 Instruction Type:Patient Education Patient Instructions Indication:Nonsmoker Start:10-Aug-2021 Instruction Type:Provider Instructions for Treatment How to Access Health Informa tion Online using Patient Portal and [employer] Indication:Hypertension Start:10-Aug-2021 Instruction Type:Patient Education Patient Instructions Indication:BMI 40.0-44.9, adult Start:09-Aug-2021 Instruction Type:Provider Instructions for Treatment How to Access Health Informa tion Online using Patient Portal and [employer] Indication:BMI 40.0-44.9, adult Start:09-Aug-2021 Instruction Type:Patient Education Patient Instructions Indication:Nonsmoker Start:28-May-2021 Instruction Type:Provider Instructions for Treatment How to Access Health Informa tion Online using Patient Portal and [employer] Indication:Nonsmoker Start:28-May-2021 Instruction Type:Patient Education Patient Instructions Indication:BMI 40.0-44.9, adult Start:04-Apr-2021 Instruction Type:Provider Instructions for Treatment How to Access Health Informa tion Online using Patient Portal and [employer] Indication:BMI 40.0-44.9, adult Start:04-Apr-2021 Instruction Type:Patient Education Patient Instructions Indication:BMI 40.0-44.9, adult Start:20-Mar-2021 Instruction Type:Provider Instructions for Treatment How to Access Health Informa tion Online using Patient Portal and [employer] Indication:BMI 40.0-44.9, adult Start:20-Mar-2021 Instruction Type:Patient Education Patient Instructions Indication:Type 2 diabetes mellitus Start:13-Dec-2020 Instruction Type:Provider Instructions for Treatment How to Access Health Informa tion Online using Patient Portal and [employer] Indication:Type 2 diabetes mellitus Start:13-Dec-2020 Instruction Type:Patient Education Patient Instructions Indication:Type 2 diabetes mellitus Start:15-Sep-2020 Instruction Type:Provider Instructions for Treatment How to Access Health Informa tion Online using Patient Portal and [employer] Indication:Type 2 diabetes mellitus Start:15-Sep-2020 Instruction Type:Patient Education [facility]; [facility] Work Phone: Instructions* Name Dates Details Patient Instructions Indication:BMI 40.0-44.9, adult Start:25-Jul-2022 Instruction Type:Provider Instructions for Treatment How to Access Health Informa tion Online using Patient Portal and [employer] Indication:BMI 40.0-44.9, adult Start:25-Jul-2022 Instruction Type:Patient Education Patient Instructions Indication:BMI 45.0-49.9, adult Start:10-Jul-2022 Instruction Type:Provider Instructions for Treatment How to Access Health Informa tion Online using Patient Portal and [employer] Indication:BMI 45.0-49.9, adult Start:10-Jul-2022 Instruction Type:Patient Education Patient Instructions Indication:Nonsmoker Start:10-Jun-2022 Instruction Type:Provider Instructions for Treatment How to Access Health Informa tion Online using Patient Portal and [employer] Indication:Nonsmoker Start:10-Jun-2022 Instruction Type:Patient Education Patient Instructions Indication:Nonsmoker Start:10-May-2022 Instruction Type:Provider Instructions for Treatment How to Access Health Informa tion Online using Patient Portal and [employer] Indication:Nonsmoker Start:10-May-2022 Instruction Type:Patient Education Patient Instructions Indication:Nonsmoker Start:14-Mar-2022 Instruction Type:Provider Instructions for Treatment How to Access Health Informa tion Online using Patient Portal and [employer] Indication:Nonsmoker Start:14-Mar-2022 Instruction Type:Patient Education Patient Instructions Indication:Nonsmoker Start:07-Mar-2022 Instruction Type:Provider Instructions for Treatment How to Access Health Informa tion Online using Patient Portal and [employer] Indication:Nonsmoker Start:07-Mar-2022 Instruction Type:Patient Education Patient Instructions Indication:Morbid obesity Start:18-Feb-2022 Instruction Type:Provider Instructions for Treatment How to Access Health Informa tion Online using Patient Portal and [employer] Indication:Morbid obesity Start:18-Feb-2022 Instruction Type:Patient Education Patient Instructions Indication:Morbid obesity Start:31-Dec-2021 Instruction Type:Provider Instructions for Treatment How to Access Health Informa tion Online using Patient Portal and [employer] Apps Indication:Morbid obesity Start:31-Dec-2021 Instruction Type:Patient Education Patient Instructions Indication:BMI 40.0-44.9, adult Start:17-Oct-2021 Instruction Type:Provider Instructions for Treatment How to Access Health Informa tion Online using Patient Portal and [employer] Apps Indication:BMI 40.0-44.9, adult Start:17-Oct-2021 Instruction Type:Patient Education Patient Instructions Indication:BMI 40.0-44.9, adult Start:10-Oct-2021 Instruction Type:Provider Instructions for Treatment How to Access Health Informa tion Online using Patient Portal and [employer] Apps Indication:BMI 40.0-44.9, adult Start:10-Oct-2021 Instruction Type:Patient Education Patient Instructions Indication:Cellulitis Start:03-Oct-2021 Instruction Type:Provider Instructions for Treatment Patient Instructions Indication:BMI 40.0-44.9, adult Start:26-Sep-2021 Instruction Type:Provider Instructions for Treatment How to Access Health Informa tion Online using Patient Portal and [employer] Indication:BMI 40.0-44.9, adult Start:26-Sep-2021 Instruction Type:Patient Education Patient Instructions Indication:Nonsmoker Start:10-Aug-2021 Instruction Type:Provider Instructions for Treatment How to Access Health Informa tion Online using Patient Portal and [employer] Indication:Hypertension Start:10-Aug-2021 Instruction Type:Patient Education Patient Instructions Indication:BMI 40.0-44.9, adult Start:09-Aug-2021 Instruction Type:Provider Instructions for Treatment How to Access Health Informa tion Online using Patient Portal and [employer] Indication:BMI 40.0-44.9, adult Start:09-Aug-2021 Instruction Type:Patient Education Patient Instructions Indication:Nonsmoker Start:28-May-2021 Instruction Type:Provider Instructions for Treatment How to Access Health Informa tion Online using Patient Portal and [employer] Indication:Nonsmoker Start:28-May-2021 Instruction Type:Patient Education Patient Instructions Indication:BMI 40.0-44.9, adult Start:04-Apr-2021 Instruction Type:Provider Instructions for Treatment How to Access Health Informa tion Online using Patient Portal and [employer] Indication:BMI 40.0-44.9, adult Start:04-Apr-2021 Instruction Type:Patient Education Patient Instructions Indication:BMI 40.0-44.9, adult Start:20-Mar-2021 Instruction Type:Provider Instructions for Treatment How to Access Health Informa tion Online using Patient Portal and [employer] Indication:BMI 40.0-44.9, adult Start:20-Mar-2021 Instruction Type:Patient Education Patient Instructions Indication:Type 2 diabetes mellitus Start:13-Dec-2020 Instruction Type:Provider Instructions for Treatment How to Access Health Informa tion Online using Patient Portal and [employer] Indication:Type 2 diabetes mellitus Start:13-Dec-2020 Instruction Type:Patient Education Patient Instructions Indication:Type 2 diabetes mellitus Start:15-Sep-2020 Instruction Type:Provider Instructions for Treatment How to Access Health Informa tion Online using Patient Portal and [employer] Indication:Type 2 diabetes mellitus Start:15-Sep-2020 Instruction Type:Patient Education [facility]; [facility] Work Phone: Instructions* Name Dates Details Patient Instructions Indication:BMI 40.0-44.9, adult Start:25-Jul-2022 Instruction Type:Provider Instructions for Treatment How to Access Health Informa tion Online using Patient Portal and [employer] Indication:BMI 40.0-44.9, adult Start:25-Jul-2022 Instruction Type:Patient Education Patient Instructions Indication:BMI 45.0-49.9, adult Start:10-Jul-2022 Instruction Type:Provider Instructions for Treatment How to Access Health Informa tion Online using Patient Portal and [employer] Indication:BMI 45.0-49.9, adult Start:10-Jul-2022 Instruction Type:Patient Education Patient Instructions Indication:Nonsmoker Start:10-Jun-2022 Instruction Type:Provider Instructions for Treatment How to Access Health Informa tion Online using Patient Portal and [employer]rd [employer] Apps Indication:Nonsmoker Start:10-Jun-2022 Instruction Type:Patient Education Patient Instructions Indication:Nonsmoker Start:10-May-2022 Instruction Type:Provider Instructions for Treatment How to Access Health Informa tion Online using Patient Portal and [employer]rd [employer] Apps Indication:Nonsmoker Start:10-May-2022 Instruction Type:Patient Education Patient Instructions Indication:Nonsmoker Start:14-Mar-2022 Instruction Type:Provider Instructions for Treatment How to Access Health Informa tion Online using Patient Portal and [employer]rd [employer] Apps Indication:Nonsmoker Start:14-Mar-2022 Instruction Type:Patient Education Patient Instructions Indication:Nonsmoker Start:07-Mar-2022 Instruction Type:Provider Instructions for Treatment How to Access Health Informa tion Online using Patient Portal and [employer]rd [employer] Apps Indication:Nonsmoker Start:07-Mar-2022 Instruction Type:Patient Education Patient Instructions Indication:Morbid obesity Start:18-Feb-2022 Instruction Type:Provider Instructions for Treatment How to Access Health Informa tion Online using Patient Portal and [employer]rd [employer] Apps Indication:Morbid obesity Start:18-Feb-2022 Instruction Type:Patient Education Patient Instructions Indication:Morbid obesity Start:31-Dec-2021 Instruction Type:Provider Instructions for Treatment How to Access Health Informa tion Online using Patient Portal and [employer]rd [employer] Apps Indication:Morbid obesity Start:31-Dec-2021 Instruction Type:Patient Education Patient Instructions Indication:BMI 40.0-44.9, adult Start:17-Oct-2021 Instruction Type:Provider Instructions for Treatment How to Access Health Informa tion Online using Patient Portal and [employer]rd [employer] Apps Indication:BMI 40.0-44.9, adult Start:17-Oct-2021 Instruction Type:Patient Education Patient Instructions Indication:BMI 40.0-44.9, adult Start:10-Oct-2021 Instruction Type:Provider Instructions for Treatment How to Access Health Informa tion Online using Patient Portal and [employer] Apps Indication:BMI 40.0-44.9, adult Start:10-Oct-2021 Instruction Type:Patient Education Patient Instructions Indication:Cellulitis Start:03-Oct-2021 Instruction Type:Provider Instructions for Treatment Patient Instructions Indication:BMI 40.0-44.9, adult Start:26-Sep-2021 Instruction Type:Provider Instructions for Treatment How to Access Health Informa tion Online using Patient Portal and [employer] Apps Indication:BMI 40.0-44.9, adult Start:26-Sep-2021 Instruction Type:Patient Education Patient Instructions Indication:Nonsmoker Start:10-Aug-2021 Instruction Type:Provider Instructions for Treatment How to Access Health Informa tion Online using Patient Portal and [employer] Apps Indication:Hypertension Start:10-Aug-2021 Instruction Type:Patient Education Patient Instructions Indication:BMI 40.0-44.9, adult Start:09-Aug-2021 Instruction Type:Provider Instructions for Treatment How to Access Health Informa tion Online using Patient Portal and [employer] Apps Indication:BMI 40.0-44.9, adult Start:09-Aug-2021 Instruction Type:Patient Education Patient Instructions Indication:Nonsmoker Start:28-May-2021 Instruction Type:Provider Instructions for Treatment How to Access Health Informa tion Online using Patient Portal and [employer] Apps Indication:Nonsmoker Start:28-May-2021 Instruction Type:Patient Education Patient Instructions Indication:BMI 40.0-44.9, adult Start:04-Apr-2021 Instruction Type:Provider Instructions for Treatment How to Access Health Informa tion Online using Patient Portal and [employer] Apps Indication:BMI 40.0-44.9, adult Start:04-Apr-2021 Instruction Type:Patient Education Patient Instructions Indication:BMI 40.0-44.9, adult Start:20-Mar-2021 Instruction Type:Provider Instructions for Treatment How to Access Health Informa tion Online using Patient Portal and [employer] Apps Indication:BMI 40.0-44.9, adult Start:20-Mar-2021 Instruction Type:Patient Education Patient Instructions Indication:Type 2 diabetes mellitus Start:13-Dec-2020 Instruction Type:Provider Instructions for Treatment How to Access Health Informa tion Online using Patient Portal and [employer] Apps Indication:Type 2 diabetes mellitus Start:13-Dec-2020 Instruction Type:Patient Education Patient Instructions Indication:Type 2 diabetes mellitus Start:15-Sep-2020 Instruction Type:Provider Instructions for Treatment How to Access Health Informa tion Online using Patient Portal and [employer] Apps Indication:Type 2 diabetes mellitus Start:15-Sep-2020 Instruction Type:Patient Education [facility]; [facility] Work Phone: Instructions* Name Dates Details Patient Instructions Indication:BMI 40.0-44.9, adult Start:25-Jul-2022 Instruction Type:Provider Instructions for Treatment How to Access Health Informa tion Online using Patient Portal and [employer] Apps Indication:BMI 40.0-44.9, adult Start:25-Jul-2022 Instruction Type:Patient Education Patient Instructions Indication:BMI 45.0-49.9, adult Start:10-Jul-2022 Instruction Type:Provider Instructions for Treatment How to Access Health Informa tion Online using Patient Portal and [employer] Apps Indication:BMI 45.0-49.9, adult Start:10-Jul-2022 Instruction Type:Patient Education Patient Instructions Indication:Nonsmoker Start:10-Jun-2022 Instruction Type:Provider Instructions for Treatment How to Access Health Informa tion Online using Patient Portal and [employer] Apps Indication:Nonsmoker Start:10-Jun-2022 Instruction Type:Patient Education Patient Instructions Indication:Nonsmoker Start:10-May-2022 Instruction Type:Provider Instructions for Treatment How to Access Health Informa tion Online using Patient Portal and [employer] Apps Indication:Nonsmoker Start:10-May-2022 Instruction Type:Patient Education Patient Instructions Indication:Nonsmoker Start:14-Mar-2022 Instruction Type:Provider Instructions for Treatment How to Access Health Informa tion Online using Patient Portal and [employer] Apps Indication:Nonsmoker Start:14-Mar-2022 Instruction Type:Patient Education Patient Instructions Indication:Nonsmoker Start:07-Mar-2022 Instruction Type:Provider Instructions for Treatment How to Access Health Informa tion Online using Patient Portal and [employer] Apps Indication:Nonsmoker Start:07-Mar-2022 Instruction Type:Patient Education Patient Instructions Indication:Morbid obesity Start:18-Feb-2022 Instruction Type:Provider Instructions for Treatment How to Access Health Informa tion Online using Patient Portal and [employer] Apps Indication:Morbid obesity Start:18-Feb-2022 Instruction Type:Patient Education Patient Instructions Indication:Morbid obesity Start:31-Dec-2021 Instruction Type:Provider Instructions for Treatment How to Access Health Informa tion Online using Patient Portal and [employer] Apps Indication:Morbid obesity Start:31-Dec-2021 Instruction Type:Patient Education Patient Instructions Indication:BMI 40.0-44.9, adult Start:17-Oct-2021 Instruction Type:Provider Instructions for Treatment How to Access Health Informa tion Online using Patient Portal and [employer] Apps Indication:BMI 40.0-44.9, adult Start:17-Oct-2021 Instruction Type:Patient Education Patient Instructions Indication:BMI 40.0-44.9, adult Start:10-Oct-2021 Instruction Type:Provider Instructions for Treatment How to Access Health Informa tion Online using Patient Portal and [employer] Apps Indication:BMI 40.0-44.9, adult Start:10-Oct-2021 Instruction Type:Patient Education Patient Instructions Indication:Cellulitis Start:03-Oct-2021 Instruction Type:Provider Instructions for Treatment Patient Instructions Indication:BMI 40.0-44.9, adult Start:26-Sep-2021 Instruction Type:Provider Instructions for Treatment How to Access Health Informa tion Online using Patient Portal and [employer] Apps Indication:BMI 40.0-44.9, adult Start:26-Sep-2021 Instruction Type:Patient Education Patient Instructions Indication:Nonsmoker Start:10-Aug-2021 Instruction Type:Provider Instructions for Treatment How to Access Health Informa tion Online using Patient Portal and [employer] Apps Indication:Hypertension Start:10-Aug-2021 Instruction Type:Patient Education Patient Instructions Indication:BMI 40.0-44.9, adult Start:09-Aug-2021 Instruction Type:Provider Instructions for Treatment How to Access Health Informa tion Online using Patient Portal and [employer] Apps Indication:BMI 40.0-44.9, adult Start:09-Aug-2021 Instruction Type:Patient Education Patient Instructions Indication:Nonsmoker Start:28-May-2021 Instruction Type:Provider Instructions for Treatment How to Access Health Informa tion Online using Patient Portal and [employer] Apps Indication:Nonsmoker Start:28-May-2021 Instruction Type:Patient Education Patient Instructions Indication:BMI 40.0-44.9, adult Start:04-Apr-2021 Instruction Type:Provider Instructions for Treatment How to Access Health Informa tion Online using Patient Portal and [employer] Apps Indication:BMI 40.0-44.9, adult Start:04-Apr-2021 Instruction Type:Patient Education Patient Instructions Indication:BMI 40.0-44.9, adult Start:20-Mar-2021 Instruction Type:Provider Instructions for Treatment How to Access Health Informa tion Online using Patient Portal and [employer] Apps Indication:BMI 40.0-44.9, adult Start:20-Mar-2021 Instruction Type:Patient Education Patient Instructions Indication:Type 2 diabetes mellitus Start:13-Dec-2020 Instruction Type:Provider Instructions for Treatment How to Access Health Informa tion Online using Patient Portal and [employer] Apps Indication:Type 2 diabetes mellitus Start:13-Dec-2020 Instruction Type:Patient Education Patient Instructions Indication:Type 2 diabetes mellitus Start:15-Sep-2020 Instruction Type:Provider Instructions for Treatment How to Access Health Informa tion Online using Patient Portal and [employer] Apps Indication:Type 2 diabetes mellitus Start:15-Sep-2020 Instruction Type:Patient Education [facility]; [facility] Work Phone: Instructions* Name Dates Details Patient Instructions Indication:Nonsmoker Start:29-Aug-2022 Instruction Type:Provider Instructions for Treatment How to Access Health Informa tion Online using Patient Portal and [employer] Apps Indication:Nonsmoker Start:29-Aug-2022 Instruction Type:Patient Education Patient Instructions Indication:BMI 40.0-44.9, adult Start:25-Jul-2022 Instruction Type:Provider Instructions for Treatment How to Access Health Informa tion Online using Patient Portal and [employer] Apps Indication:BMI 40.0-44.9, adult Start:25-Jul-2022 Instruction Type:Patient Education Patient Instructions Indication:BMI 45.0-49.9, adult Start:10-Jul-2022 Instruction Type:Provider Instructions for Treatment How to Access Health Informa tion Online using Patient Portal and [employer] Apps Indication:BMI 45.0-49.9, adult Start:10-Jul-2022 Instruction Type:Patient Education Patient Instructions Indication:Nonsmoker Start:10-Jun-2022 Instruction Type:Provider Instructions for Treatment How to Access Health Informa tion Online using Patient Portal and [employer] Apps Indication:Nonsmoker Start:10-Jun-2022 Instruction Type:Patient Education Patient Instructions Indication:Nonsmoker Start:10-May-2022 Instruction Type:Provider Instructions for Treatment How to Access Health Informa tion Online using Patient Portal and [employer] Apps Indication:Nonsmoker Start:10-May-2022 Instruction Type:Patient Education Patient Instructions Indication:Nonsmoker Start:14-Mar-2022 Instruction Type:Provider Instructions for Treatment How to Access Health Informa tion Online using Patient Portal and [employer] Apps Indication:Nonsmoker Start:14-Mar-2022 Instruction Type:Patient Education Patient Instructions Indication:Nonsmoker Start:07-Mar-2022 Instruction Type:Provider Instructions for Treatment How to Access Health Informa tion Online using Patient Portal and [employer] Apps Indication:Nonsmoker Start:07-Mar-2022 Instruction Type:Patient Education Patient Instructions Indication:Morbid obesity Start:18-Feb-2022 Instruction Type:Provider Instructions for Treatment How to Access Health Informa tion Online using Patient Portal and [employer] Apps Indication:Morbid obesity Start:18-Feb-2022 Instruction Type:Patient Education Patient Instructions Indication:Morbid obesity Start:31-Dec-2021 Instruction Type:Provider Instructions for Treatment How to Access Health Informa tion Online using Patient Portal and [employer] Apps Indication:Morbid obesity Start:31-Dec-2021 Instruction Type:Patient Education Patient Instructions Indication:BMI 40.0-44.9, adult Start:17-Oct-2021 Instruction Type:Provider Instructions for Treatment How to Access Health Informa tion Online using Patient Portal and [employer] Apps Indication:BMI 40.0-44.9, adult Start:17-Oct-2021 Instruction Type:Patient Education Patient Instructions Indication:BMI 40.0-44.9, adult Start:10-Oct-2021 Instruction Type:Provider Instructions for Treatment How to Access Health Informa tion Online using Patient Portal and [employer] Apps Indication:BMI 40.0-44.9, adult Start:10-Oct-2021 Instruction Type:Patient Education Patient Instructions Indication:Cellulitis Start:03-Oct-2021 Instruction Type:Provider Instructions for Treatment Patient Instructions Indication:BMI 40.0-44.9, adult Start:26-Sep-2021 Instruction Type:Provider Instructions for Treatment How to Access Health Informa tion Online using Patient Portal and [employer] Apps Indication:BMI 40.0-44.9, adult Start:26-Sep-2021 Instruction Type:Patient Education Patient Instructions Indication:Nonsmoker Start:10-Aug-2021 Instruction Type:Provider Instructions for Treatment How to Access Health Informa tion Online using Patient Portal and [employer] Apps Indication:Hypertension Start:10-Aug-2021 Instruction Type:Patient Education Patient Instructions Indication:BMI 40.0-44.9, adult Start:09-Aug-2021 Instruction Type:Provider Instructions for Treatment How to Access Health Informa tion Online using Patient Portal and [employer] Apps Indication:BMI 40.0-44.9, adult Start:09-Aug-2021 Instruction Type:Patient Education Patient Instructions Indication:Nonsmoker Start:28-May-2021 Instruction Type:Provider Instructions for Treatment How to Access Health Informa tion Online using Patient Portal and [employer] Apps Indication:Nonsmoker Start:28-May-2021 Instruction Type:Patient Education Patient Instructions Indication:BMI 40.0-44.9, adult Start:04-Apr-2021 Instruction Type:Provider Instructions for Treatment How to Access Health Informa tion Online using Patient Portal and [employer] Apps Indication:BMI 40.0-44.9, adult Start:04-Apr-2021 Instruction Type:Patient Education Patient Instructions Indication:BMI 40.0-44.9, adult Start:20-Mar-2021 Instruction Type:Provider Instructions for Treatment How to Access Health Informa tion Online using Patient Portal and [employer] Apps Indication:BMI 40.0-44.9, adult Start:20-Mar-2021 Instruction Type:Patient Education Patient Instructions Indication:Type 2 diabetes mellitus Start:13-Dec-2020 Instruction Type:Provider Instructions for Treatment How to Access Health Informa tion Online using Patient Portal and [employer] Apps Indication:Type 2 diabetes mellitus Start:13-Dec-2020 Instruction Type:Patient Education Patient Instructions Indication:Type 2 diabetes mellitus Start:15-Sep-2020 Instruction Type:Provider Instructions for Treatment How to Access Health Informa tion Online using Patient Portal and [employer] Apps Indication:Type 2 diabetes mellitus Start:15-Sep-2020 Instruction Type:Patient Education [facility]; [facility] Work Phone: Instructions* Name Dates Details Patient Instructions Indication:Nonsmoker Start:29-Aug-2022 Instruction Type:Provider Instructions for Treatment How to Access Health Informa tion Online using Patient Portal and [employer] Apps Indication:Nonsmoker Start:29-Aug-2022 Instruction Type:Patient Education Patient Instructions Indication:BMI 40.0-44.9, adult Start:25-Jul-2022 Instruction Type:Provider Instructions for Treatment How to Access Health Informa tion Online using Patient Portal and [employer] Apps Indication:BMI 40.0-44.9, adult Start:25-Jul-2022 Instruction Type:Patient Education Patient Instructions Indication:BMI 45.0-49.9, adult Start:10-Jul-2022 Instruction Type:Provider Instructions for Treatment How to Access Health Informa tion Online using Patient Portal and [employer] Apps Indication:BMI 45.0-49.9, adult Start:10-Jul-2022 Instruction Type:Patient Education Patient Instructions Indication:Nonsmoker Start:10-Jun-2022 Instruction Type:Provider Instructions for Treatment How to Access Health Informa tion Online using Patient Portal and [employer] Apps Indication:Nonsmoker Start:10-Jun-2022 Instruction Type:Patient Education Patient Instructions Indication:Nonsmoker Start:10-May-2022 Instruction Type:Provider Instructions for Treatment How to Access Health Informa tion Online using Patient Portal and [employer] Apps Indication:Nonsmoker Start:10-May-2022 Instruction Type:Patient Education Patient Instructions Indication:Nonsmoker Start:14-Mar-2022 Instruction Type:Provider Instructions for Treatment How to Access Health Informa tion Online using Patient Portal and [employer] Apps Indication:Nonsmoker Start:14-Mar-2022 Instruction Type:Patient Education Patient Instructions Indication:Nonsmoker Start:07-Mar-2022 Instruction Type:Provider Instructions for Treatment How to Access Health Informa tion Online using Patient Portal and [employer] Apps Indication:Nonsmoker Start:07-Mar-2022 Instruction Type:Patient Education Patient Instructions Indication:Morbid obesity Start:18-Feb-2022 Instruction Type:Provider Instructions for Treatment How to Access Health Informa tion Online using Patient Portal and [employer] Apps Indication:Morbid obesity Start:18-Feb-2022 Instruction Type:Patient Education Patient Instructions Indication:Morbid obesity Start:31-Dec-2021 Instruction Type:Provider Instructions for Treatment How to Access Health Informa tion Online using Patient Portal and [employer] Apps Indication:Morbid obesity Start:31-Dec-2021 Instruction Type:Patient Education Patient Instructions Indication:BMI 40.0-44.9, adult Start:17-Oct-2021 Instruction Type:Provider Instructions for Treatment How to Access Health Informa tion Online using Patient Portal and [employer] Apps Indication:BMI 40.0-44.9, adult Start:17-Oct-2021 Instruction Type:Patient Education Patient Instructions Indication:BMI 40.0-44.9, adult Start:10-Oct-2021 Instruction Type:Provider Instructions for Treatment How to Access Health Informa tion Online using Patient Portal and [employer] Apps Indication:BMI 40.0-44.9, adult Start:10-Oct-2021 Instruction Type:Patient Education Patient Instructions Indication:Cellulitis Start:03-Oct-2021 Instruction Type:Provider Instructions for Treatment Patient Instructions Indication:BMI 40.0-44.9, adult Start:26-Sep-2021 Instruction Type:Provider Instructions for Treatment How to Access Health Informa tion Online using Patient Portal and [employer] Apps Indication:BMI 40.0-44.9, adult Start:26-Sep-2021 Instruction Type:Patient Education Patient Instructions Indication:Nonsmoker Start:10-Aug-2021 Instruction Type:Provider Instructions for Treatment How to Access Health Informa tion Online using Patient Portal and [employer] Apps Indication:Hypertension Start:10-Aug-2021 Instruction Type:Patient Education Patient Instructions Indication:BMI 40.0-44.9, adult Start:09-Aug-2021 Instruction Type:Provider Instructions for Treatment How to Access Health Informa tion Online using Patient Portal and [employer] Apps Indication:BMI 40.0-44.9, adult Start:09-Aug-2021 Instruction Type:Patient Education Patient Instructions Indication:Nonsmoker Start:28-May-2021 Instruction Type:Provider Instructions for Treatment How to Access Health Informa tion Online using Patient Portal and [employer] Apps Indication:Nonsmoker Start:28-May-2021 Instruction Type:Patient Education Patient Instructions Indication:BMI 40.0-44.9, adult Start:04-Apr-2021 Instruction Type:Provider Instructions for Treatment How to Access Health Informa tion Online using Patient Portal and [employer] Apps Indication:BMI 40.0-44.9, adult Start:04-Apr-2021 Instruction Type:Patient Education Patient Instructions Indication:BMI 40.0-44.9, adult Start:20-Mar-2021 Instruction Type:Provider Instructions for Treatment How to Access Health Informa tion Online using Patient Portal and [employer] Apps Indication:BMI 40.0-44.9, adult Start:20-Mar-2021 Instruction Type:Patient Education Patient Instructions Indication:Type 2 diabetes mellitus Start:13-Dec-2020 Instruction Type:Provider Instructions for Treatment How to Access Health Informa tion Online using Patient Portal and [employer] Apps Indication:Type 2 diabetes mellitus Start:13-Dec-2020 Instruction Type:Patient Education Patient Instructions Indication:Type 2 diabetes mellitus Start:15-Sep-2020 Instruction Type:Provider Instructions for Treatment How to Access Health Informa tion Online using Patient Portal and [employer] Apps Indication:Type 2 diabetes mellitus Start:15-Sep-2020 Instruction Type:Patient Education [facility]; [facility] Work Phone: Instructions* Name Dates Details Patient Instructions Indication:Nonsmoker Start:29-Aug-2022 Instruction Type:Provider Instructions for Treatment How to Access Health Informa tion Online using Patient Portal and [employer] Apps Indication:Nonsmoker Start:29-Aug-2022 Instruction Type:Patient Education Patient Instructions Indication:BMI 40.0-44.9, adult Start:25-Jul-2022 Instruction Type:Provider Instructions for Treatment How to Access Health Informa tion Online using Patient Portal and [employer] Apps Indication:BMI 40.0-44.9, adult Start:25-Jul-2022 Instruction Type:Patient Education Patient Instructions Indication:BMI 45.0-49.9, adult Start:10-Jul-2022 Instruction Type:Provider Instructions for Treatment How to Access Health Informa tion Online using Patient Portal and [employer] Apps Indication:BMI 45.0-49.9, adult Start:10-Jul-2022 Instruction Type:Patient Education Patient Instructions Indication:Nonsmoker Start:10-Jun-2022 Instruction Type:Provider Instructions for Treatment How to Access Health Informa tion Online using Patient Portal and [employer] Apps Indication:Nonsmoker Start:10-Jun-2022 Instruction Type:Patient Education Patient Instructions Indication:Nonsmoker Start:10-May-2022 Instruction Type:Provider Instructions for Treatment How to Access Health Informa tion Online using Patient Portal and [employer] Apps Indication:Nonsmoker Start:10-May-2022 Instruction Type:Patient Education Patient Instructions Indication:Nonsmoker Start:14-Mar-2022 Instruction Type:Provider Instructions for Treatment How to Access Health Informa tion Online using Patient Portal and [employer] Apps Indication:Nonsmoker Start:14-Mar-2022 Instruction Type:Patient Education Patient Instructions Indication:Nonsmoker Start:07-Mar-2022 Instruction Type:Provider Instructions for Treatment How to Access Health Informa tion Online using Patient Portal and [employer] Apps Indication:Nonsmoker Start:07-Mar-2022 Instruction Type:Patient Education Patient Instructions Indication:Morbid obesity Start:18-Feb-2022 Instruction Type:Provider Instructions for Treatment How to Access Health Informa tion Online using Patient Portal and [employer] Indication:Morbid obesity Start:18-Feb-2022 Instruction Type:Patient Education Patient Instructions Indication:Morbid obesity Start:31-Dec-2021 Instruction Type:Provider Instructions for Treatment How to Access Health Informa tion Online using Patient Portal and [employer] Apps Indication:Morbid obesity Start:31-Dec-2021 Instruction Type:Patient Education Patient Instructions Indication:BMI 40.0-44.9, adult Start:17-Oct-2021 Instruction Type:Provider Instructions for Treatment How to Access Health Informa tion Online using Patient Portal and [employer] Indication:BMI 40.0-44.9, adult Start:17-Oct-2021 Instruction Type:Patient Education Patient Instructions Indication:BMI 40.0-44.9, adult Start:10-Oct-2021 Instruction Type:Provider Instructions for Treatment How to Access Health Informa tion Online using Patient Portal and [employer] Indication:BMI 40.0-44.9, adult Start:10-Oct-2021 Instruction Type:Patient Education Patient Instructions Indication:Cellulitis Start:03-Oct-2021 Instruction Type:Provider Instructions for Treatment Patient Instructions Indication:BMI 40.0-44.9, adult Start:26-Sep-2021 Instruction Type:Provider Instructions for Treatment How to Access Health Informa tion Online using Patient Portal and [employer] Indication:BMI 40.0-44.9, adult Start:26-Sep-2021 Instruction Type:Patient Education Patient Instructions Indication:Nonsmoker Start:10-Aug-2021 Instruction Type:Provider Instructions for Treatment How to Access Health Informa tion Online using Patient Portal and [employer] Indication:Hypertension Start:10-Aug-2021 Instruction Type:Patient Education Patient Instructions Indication:BMI 40.0-44.9, adult Start:09-Aug-2021 Instruction Type:Provider Instructions for Treatment How to Access Health Informa tion Online using Patient Portal and [employer] Indication:BMI 40.0-44.9, adult Start:09-Aug-2021 Instruction Type:Patient Education Patient Instructions Indication:Nonsmoker Start:28-May-2021 Instruction Type:Provider Instructions for Treatment How to Access Health Informa tion Online using Patient Portal and [employer] Indication:Nonsmoker Start:28-May-2021 Instruction Type:Patient Education Patient Instructions Indication:BMI 40.0-44.9, adult Start:04-Apr-2021 Instruction Type:Provider Instructions for Treatment How to Access Health Informa tion Online using Patient Portal and [employer] Indication:BMI 40.0-44.9, adult Start:04-Apr-2021 Instruction Type:Patient Education Patient Instructions Indication:BMI 40.0-44.9, adult Start:20-Mar-2021 Instruction Type:Provider Instructions for Treatment How to Access Health Informa tion Online using Patient Portal and [employer] Indication:BMI 40.0-44.9, adult Start:20-Mar-2021 Instruction Type:Patient Education Patient Instructions Indication:Type 2 diabetes mellitus Start:13-Dec-2020 Instruction Type:Provider Instructions for Treatment How to Access Health Informa tion Online using Patient Portal and [employer] Indication:Type 2 diabetes mellitus Start:13-Dec-2020 Instruction Type:Patient Education Patient Instructions Indication:Type 2 diabetes mellitus Start:15-Sep-2020 Instruction Type:Provider Instructions for Treatment How to Access Health Informa tion Online using Patient Portal and [employer] Indication:Type 2 diabetes mellitus Start:15-Sep-2020 Instruction Type:Patient Education [facility]; [facility] Work Phone: Instructions* Name Dates Details Patient Instructions Indication:Nonsmoker Start:29-Aug-2022 Instruction Type:Provider Instructions for Treatment How to Access Health Informa tion Online using Patient Portal and [employer] Indication:Nonsmoker Start:29-Aug-2022 Instruction Type:Patient Education Patient Instructions Indication:BMI 40.0-44.9, adult Start:25-Jul-2022 Instruction Type:Provider Instructions for Treatment How to Access Health Informa tion Online using Patient Portal and [employer] Indication:BMI 40.0-44.9, adult Start:25-Jul-2022 Instruction Type:Patient Education Patient Instructions Indication:BMI 45.0-49.9, adult Start:10-Jul-2022 Instruction Type:Provider Instructions for Treatment How to Access Health Informa tion Online using Patient Portal and [employer] Indication:BMI 45.0-49.9, adult Start:10-Jul-2022 Instruction Type:Patient Education Patient Instructions Indication:Nonsmoker Start:10-Jun-2022 Instruction Type:Provider Instructions for Treatment How to Access Health Informa tion Online using Patient Portal and [employer] Indication:Nonsmoker Start:10-Jun-2022 Instruction Type:Patient Education Patient Instructions Indication:Nonsmoker Start:10-May-2022 Instruction Type:Provider Instructions for Treatment How to Access Health Informa tion Online using Patient Portal and [employer] Indication:Nonsmoker Start:10-May-2022 Instruction Type:Patient Education Patient Instructions Indication:Nonsmoker Start:14-Mar-2022 Instruction Type:Provider Instructions for Treatment How to Access Health Informa tion Online using Patient Portal and [employer] Indication:Nonsmoker Start:14-Mar-2022 Instruction Type:Patient Education Patient Instructions Indication:Nonsmoker Start:07-Mar-2022 Instruction Type:Provider Instructions for Treatment How to Access Health Informa tion Online using Patient Portal and [employer] Indication:Nonsmoker Start:07-Mar-2022 Instruction Type:Patient Education Patient Instructions Indication:Morbid obesity Start:18-Feb-2022 Instruction Type:Provider Instructions for Treatment How to Access Health Informa tion Online using Patient Portal and [employer] Indication:Morbid obesity Start:18-Feb-2022 Instruction Type:Patient Education Patient Instructions Indication:Morbid obesity Start:31-Dec-2021 Instruction Type:Provider Instructions for Treatment How to Access Health Informa tion Online using Patient Portal and [employer] Indication:Morbid obesity Start:31-Dec-2021 Instruction Type:Patient Education Patient Instructions Indication:BMI 40.0-44.9, adult Start:17-Oct-2021 Instruction Type:Provider Instructions for Treatment How to Access Health Informa tion Online using Patient Portal and [employer] Indication:BMI 40.0-44.9, adult Start:17-Oct-2021 Instruction Type:Patient Education Patient Instructions Indication:BMI 40.0-44.9, adult Start:10-Oct-2021 Instruction Type:Provider Instructions for Treatment How to Access Health Informa tion Online using Patient Portal and [employer] Indication:BMI 40.0-44.9, adult Start:10-Oct-2021 Instruction Type:Patient Education Patient Instructions Indication:Cellulitis Start:03-Oct-2021 Instruction Type:Provider Instructions for Treatment Patient Instructions Indication:BMI 40.0-44.9, adult Start:26-Sep-2021 Instruction Type:Provider Instructions for Treatment How to Access Health Informa tion Online using Patient Portal and [employer] Indication:BMI 40.0-44.9, adult Start:26-Sep-2021 Instruction Type:Patient Education Patient Instructions Indication:Nonsmoker Start:10-Aug-2021 Instruction Type:Provider Instructions for Treatment How to Access Health Informa tion Online using Patient Portal and [employer] Indication:Hypertension Start:10-Aug-2021 Instruction Type:Patient Education Patient Instructions Indication:BMI 40.0-44.9, adult Start:09-Aug-2021 Instruction Type:Provider Instructions for Treatment How to Access Health Informa tion Online using Patient Portal and [employer] Indication:BMI 40.0-44.9, adult Start:09-Aug-2021 Instruction Type:Patient Education Patient Instructions Indication:Nonsmoker Start:28-May-2021 Instruction Type:Provider Instructions for Treatment How to Access Health Informa tion Online using Patient Portal and [employer] Indication:Nonsmoker Start:28-May-2021 Instruction Type:Patient Education Patient Instructions Indication:BMI 40.0-44.9, adult Start:04-Apr-2021 Instruction Type:Provider Instructions for Treatment How to Access Health Informa tion Online using Patient Portal and [employer] Indication:BMI 40.0-44.9, adult Start:04-Apr-2021 Instruction Type:Patient Education Patient Instructions Indication:BMI 40.0-44.9, adult Start:20-Mar-2021 Instruction Type:Provider Instructions for Treatment How to Access Health Informa tion Online using Patient Portal and [employer] Indication:BMI 40.0-44.9, adult Start:20-Mar-2021 Instruction Type:Patient Education Patient Instructions Indication:Type 2 diabetes mellitus Start:13-Dec-2020 Instruction Type:Provider Instructions for Treatment How to Access Health Informa tion Online using Patient Portal and [employer] Indication:Type 2 diabetes mellitus Start:13-Dec-2020 Instruction Type:Patient Education Patient Instructions Indication:Type 2 diabetes mellitus Start:15-Sep-2020 Instruction Type:Provider Instructions for Treatment How to Access Health Informa tion Online using Patient Portal and [employer] Indication:Type 2 diabetes mellitus Start:15-Sep-2020 Instruction Type:Patient Education [facility]; [facility] Work Phone: Instructions* Name Dates Details Patient Instructions Indication:Nonsmoker Start:29-Aug-2022 Instruction Type:Provider Instructions for Treatment How to Access Health Informa tion Online using Patient Portal and [employer] Indication:Nonsmoker Start:29-Aug-2022 Instruction Type:Patient Education Patient Instructions Indication:BMI 40.0-44.9, adult Start:25-Jul-2022 Instruction Type:Provider Instructions for Treatment How to Access Health Informa tion Online using Patient Portal and [employer] Indication:BMI 40.0-44.9, adult Start:25-Jul-2022 Instruction Type:Patient Education Patient Instructions Indication:BMI 45.0-49.9, adult Start:10-Jul-2022 Instruction Type:Provider Instructions for Treatment How to Access Health Informa tion Online using Patient Portal and [employer] Indication:BMI 45.0-49.9, adult Start:10-Jul-2022 Instruction Type:Patient Education Patient Instructions Indication:Nonsmoker Start:10-Jun-2022 Instruction Type:Provider Instructions for Treatment How to Access Health Informa tion Online using Patient Portal and [employer] Indication:Nonsmoker Start:10-Jun-2022 Instruction Type:Patient Education Patient Instructions Indication:Nonsmoker Start:10-May-2022 Instruction Type:Provider Instructions for Treatment How to Access Health Informa tion Online using Patient Portal and [employer] Indication:Nonsmoker Start:10-May-2022 Instruction Type:Patient Education Patient Instructions Indication:Nonsmoker Start:14-Mar-2022 Instruction Type:Provider Instructions for Treatment How to Access Health Informa tion Online using Patient Portal and [employer] Indication:Nonsmoker Start:14-Mar-2022 Instruction Type:Patient Education Patient Instructions Indication:Nonsmoker Start:07-Mar-2022 Instruction Type:Provider Instructions for Treatment How to Access Health Informa tion Online using Patient Portal and [employer] Indication:Nonsmoker Start:07-Mar-2022 Instruction Type:Patient Education Patient Instructions Indication:Morbid obesity Start:18-Feb-2022 Instruction Type:Provider Instructions for Treatment How to Access Health Informa tion Online using Patient Portal and [employer] Indication:Morbid obesity Start:18-Feb-2022 Instruction Type:Patient Education Patient Instructions Indication:Morbid obesity Start:31-Dec-2021 Instruction Type:Provider Instructions for Treatment How to Access Health Informa tion Online using Patient Portal and [employer] Indication:Morbid obesity Start:31-Dec-2021 Instruction Type:Patient Education Patient Instructions Indication:BMI 40.0-44.9, adult Start:17-Oct-2021 Instruction Type:Provider Instructions for Treatment How to Access Health Informa tion Online using Patient Portal and [employer] Indication:BMI 40.0-44.9, adult Start:17-Oct-2021 Instruction Type:Patient Education Patient Instructions Indication:BMI 40.0-44.9, adult Start:10-Oct-2021 Instruction Type:Provider Instructions for Treatment How to Access Health Informa tion Online using Patient Portal and [employer] Indication:BMI 40.0-44.9, adult Start:10-Oct-2021 Instruction Type:Patient Education Patient Instructions Indication:Cellulitis Start:03-Oct-2021 Instruction Type:Provider Instructions for Treatment Patient Instructions Indication:BMI 40.0-44.9, adult Start:26-Sep-2021 Instruction Type:Provider Instructions for Treatment How to Access Health Informa tion Online using Patient Portal and [employer] Indication:BMI 40.0-44.9, adult Start:26-Sep-2021 Instruction Type:Patient Education Patient Instructions Indication:Nonsmoker Start:10-Aug-2021 Instruction Type:Provider Instructions for Treatment How to Access Health Informa tion Online using Patient Portal and [employer] Indication:Hypertension Start:10-Aug-2021 Instruction Type:Patient Education Patient Instructions Indication:BMI 40.0-44.9, adult Start:09-Aug-2021 Instruction Type:Provider Instructions for Treatment How to Access Health Informa tion Online using Patient Portal and [employer] Indication:BMI 40.0-44.9, adult Start:09-Aug-2021 Instruction Type:Patient Education Patient Instructions Indication:Nonsmoker Start:28-May-2021 Instruction Type:Provider Instructions for Treatment How to Access Health Informa tion Online using Patient Portal and [employer] Indication:Nonsmoker Start:28-May-2021 Instruction Type:Patient Education Patient Instructions Indication:BMI 40.0-44.9, adult Start:04-Apr-2021 Instruction Type:Provider Instructions for Treatment How to Access Health Informa tion Online using Patient Portal and [employer] Indication:BMI 40.0-44.9, adult Start:04-Apr-2021 Instruction Type:Patient Education Patient Instructions Indication:BMI 40.0-44.9, adult Start:20-Mar-2021 Instruction Type:Provider Instructions for Treatment How to Access Health Informa tion Online using Patient Portal and [employer] Indication:BMI 40.0-44.9, adult Start:20-Mar-2021 Instruction Type:Patient Education Patient Instructions Indication:Type 2 diabetes mellitus Start:13-Dec-2020 Instruction Type:Provider Instructions for Treatment How to Access Health Informa tion Online using Patient Portal and [employer] Indication:Type 2 diabetes mellitus Start:13-Dec-2020 Instruction Type:Patient Education Patient Instructions Indication:Type 2 diabetes mellitus Start:15-Sep-2020 Instruction Type:Provider Instructions for Treatment How to Access Health Informa tion Online using Patient Portal and [employer] Indication:Type 2 diabetes mellitus Start:15-Sep-2020 Instruction Type:Patient Education [facility]; [facility] Work Phone: Instructions* Name Dates Details Patient Instructions Indication:Nonsmoker Start:31-Jan-2023 Instruction Type:Provider Instructions for Treatment How to Access Health Informa tion Online using Patient Portal and [employer] Indication:Nonsmoker Start:31-Jan-2023 Instruction Type:Patient Education Patient Instructions Indication:Nonsmoker Start:29-Aug-2022 Instruction Type:Provider Instructions for Treatment How to Access Health Informa tion Online using Patient Portal and [employer] Indication:Nonsmoker Start:29-Aug-2022 Instruction Type:Patient Education Patient Instructions Indication:BMI 40.0-44.9, adult Start:25-Jul-2022 Instruction Type:Provider Instructions for Treatment How to Access Health Informa tion Online using Patient Portal and [employer] Indication:BMI 40.0-44.9, adult Start:25-Jul-2022 Instruction Type:Patient Education Patient Instructions Indication:BMI 45.0-49.9, adult Start:10-Jul-2022 Instruction Type:Provider Instructions for Treatment How to Access Health Informa tion Online using Patient Portal and [employer] Indication:BMI 45.0-49.9, adult Start:10-Jul-2022 Instruction Type:Patient Education Patient Instructions Indication:Nonsmoker Start:10-Jun-2022 Instruction Type:Provider Instructions for Treatment How to Access Health Informa tion Online using Patient Portal and [employer] Indication:Nonsmoker Start:10-Jun-2022 Instruction Type:Patient Education Patient Instructions Indication:Nonsmoker Start:10-May-2022 Instruction Type:Provider Instructions for Treatment How to Access Health Informa tion Online using Patient Portal and [employer] Indication:Nonsmoker Start:10-May-2022 Instruction Type:Patient Education Patient Instructions Indication:Nonsmoker Start:14-Mar-2022 Instruction Type:Provider Instructions for Treatment How to Access Health Informa tion Online using Patient Portal and [employer] Indication:Nonsmoker Start:14-Mar-2022 Instruction Type:Patient Education Patient Instructions Indication:Nonsmoker Start:07-Mar-2022 Instruction Type:Provider Instructions for Treatment How to Access Health Informa tion Online using Patient Portal and [employer] Indication:Nonsmoker Start:07-Mar-2022 Instruction Type:Patient Education Patient Instructions Indication:Morbid obesity Start:18-Feb-2022 Instruction Type:Provider Instructions for Treatment How to Access Health Informa tion Online using Patient Portal and [employer] Indication:Morbid obesity Start:18-Feb-2022 Instruction Type:Patient Education Patient Instructions Indication:Morbid obesity Start:31-Dec-2021 Instruction Type:Provider Instructions for Treatment How to Access Health Informa tion Online using Patient Portal and [employer] Indication:Morbid obesity Start:31-Dec-2021 Instruction Type:Patient Education Patient Instructions Indication:BMI 40.0-44.9, adult Start:17-Oct-2021 Instruction Type:Provider Instructions for Treatment How to Access Health Informa tion Online using Patient Portal and [employer] Indication:BMI 40.0-44.9, adult Start:17-Oct-2021 Instruction Type:Patient Education Patient Instructions Indication:BMI 40.0-44.9, adult Start:10-Oct-2021 Instruction Type:Provider Instructions for Treatment How to Access Health Informa tion Online using Patient Portal and [employer] Indication:BMI 40.0-44.9, adult Start:10-Oct-2021 Instruction Type:Patient Education Patient Instructions Indication:Cellulitis Start:03-Oct-2021 Instruction Type:Provider Instructions for Treatment Patient Instructions Indication:BMI 40.0-44.9, adult Start:26-Sep-2021 Instruction Type:Provider Instructions for Treatment How to Access Health Informa tion Online using Patient Portal and [employer] Indication:BMI 40.0-44.9, adult Start:26-Sep-2021 Instruction Type:Patient Education Patient Instructions Indication:Nonsmoker Start:10-Aug-2021 Instruction Type:Provider Instructions for Treatment How to Access Health Informa tion Online using Patient Portal and [employer] Indication:Hypertension Start:10-Aug-2021 Instruction Type:Patient Education Patient Instructions Indication:BMI 40.0-44.9, adult Start:09-Aug-2021 Instruction Type:Provider Instructions for Treatment How to Access Health Informa tion Online using Patient Portal and [employer] Indication:BMI 40.0-44.9, adult Start:09-Aug-2021 Instruction Type:Patient Education Patient Instructions Indication:Nonsmoker Start:28-May-2021 Instruction Type:Provider Instructions for Treatment How to Access Health Informa tion Online using Patient Portal and [employer] Indication:Nonsmoker Start:28-May-2021 Instruction Type:Patient Education Patient Instructions Indication:BMI 40.0-44.9, adult Start:04-Apr-2021 Instruction Type:Provider Instructions for Treatment How to Access Health Informa tion Online using Patient Portal and [employer] Indication:BMI 40.0-44.9, adult Start:04-Apr-2021 Instruction Type:Patient Education Patient Instructions Indication:BMI 40.0-44.9, adult Start:20-Mar-2021 Instruction Type:Provider Instructions for Treatment How to Access Health Informa tion Online using Patient Portal and [employer] Indication:BMI 40.0-44.9, adult Start:20-Mar-2021 Instruction Type:Patient Education Patient Instructions Indication:Type 2 diabetes mellitus Start:13-Dec-2020 Instruction Type:Provider Instructions for Treatment How to Access Health Informa tion Online using Patient Portal and [employer] Indication:Type 2 diabetes mellitus Start:13-Dec-2020 Instruction Type:Patient Education Patient Instructions Indication:Type 2 diabetes mellitus Start:15-Sep-2020 Instruction Type:Provider Instructions for Treatment How to Access Health Informa tion Online using Patient Portal and [employer] Indication:Type 2 diabetes mellitus Start:15-Sep-2020 Instruction Type:Patient Education [facility]; [facility] Work Phone: Instructions* Name Dates Details Patient Instructions Indication:Nonsmoker Start:31-Jan-2023 Instruction Type:Provider Instructions for Treatment How to Access Health Informa tion Online using Patient Portal and [employer] Indication:Nonsmoker Start:31-Jan-2023 Instruction Type:Patient Education Patient Instructions Indication:Nonsmoker Start:29-Aug-2022 Instruction Type:Provider Instructions for Treatment How to Access Health Informa tion Online using Patient Portal and [employer] Indication:Nonsmoker Start:29-Aug-2022 Instruction Type:Patient Education Patient Instructions Indication:BMI 40.0-44.9, adult Start:25-Jul-2022 Instruction Type:Provider Instructions for Treatment How to Access Health Informa tion Online using Patient Portal and [employer] Indication:BMI 40.0-44.9, adult Start:25-Jul-2022 Instruction Type:Patient Education Patient Instructions Indication:BMI 45.0-49.9, adult Start:10-Jul-2022 Instruction Type:Provider Instructions for Treatment How to Access Health Informa tion Online using Patient Portal and [employer] Indication:BMI 45.0-49.9, adult Start:10-Jul-2022 Instruction Type:Patient Education Patient Instructions Indication:Nonsmoker Start:10-Jun-2022 Instruction Type:Provider Instructions for Treatment How to Access Health Informa tion Online using Patient Portal and [employer] Indication:Nonsmoker Start:10-Jun-2022 Instruction Type:Patient Education Patient Instructions Indication:Nonsmoker Start:10-May-2022 Instruction Type:Provider Instructions for Treatment How to Access Health Informa tion Online using Patient Portal and [employer] Indication:Nonsmoker Start:10-May-2022 Instruction Type:Patient Education Patient Instructions Indication:Nonsmoker Start:14-Mar-2022 Instruction Type:Provider Instructions for Treatment How to Access Health Informa tion Online using Patient Portal and [employer] Indication:Nonsmoker Start:14-Mar-2022 Instruction Type:Patient Education Patient Instructions Indication:Nonsmoker Start:07-Mar-2022 Instruction Type:Provider Instructions for Treatment How to Access Health Informa tion Online using Patient Portal and [employer] Indication:Nonsmoker Start:07-Mar-2022 Instruction Type:Patient Education Patient Instructions Indication:Morbid obesity Start:18-Feb-2022 Instruction Type:Provider Instructions for Treatment How to Access Health Informa tion Online using Patient Portal and [employer] Indication:Morbid obesity Start:18-Feb-2022 Instruction Type:Patient Education Patient Instructions Indication:Morbid obesity Start:31-Dec-2021 Instruction Type:Provider Instructions for Treatment How to Access Health Informa tion Online using Patient Portal and [employer] Indication:Morbid obesity Start:31-Dec-2021 Instruction Type:Patient Education Patient Instructions Indication:BMI 40.0-44.9, adult Start:17-Oct-2021 Instruction Type:Provider Instructions for Treatment How to Access Health Informa tion Online using Patient Portal and [employer] Indication:BMI 40.0-44.9, adult Start:17-Oct-2021 Instruction Type:Patient Education Patient Instructions Indication:BMI 40.0-44.9, adult Start:10-Oct-2021 Instruction Type:Provider Instructions for Treatment How to Access Health Informa tion Online using Patient Portal and 3rd [employer] Apps Indication:BMI 40.0-44.9, adult Start:10-Oct-2021 Instruction Type:Patient Education Patient Instructions Indication:Cellulitis Start:03-Oct-2021 Instruction Type:Provider Instructions for Treatment Patient Instructions Indication:BMI 40.0-44.9, adult Start:26-Sep-2021 Instruction Type:Provider Instructions for Treatment How to Access Health Informa tion Online using Patient Portal and 3rd [employer] Apps Indication:BMI 40.0-44.9, adult Start:26-Sep-2021 Instruction Type:Patient Education Patient Instructions Indication:Nonsmoker Start:10-Aug-2021 Instruction Type:Provider Instructions for Treatment How to Access Health Informa tion Online using Patient Portal and 3rd [employer] Apps Indication:Hypertension Start:10-Aug-2021 Instruction Type:Patient Education Patient Instructions Indication:BMI 40.0-44.9, adult Start:09-Aug-2021 Instruction Type:Provider Instructions for Treatment How to Access Health Informa tion Online using Patient Portal and 3rd [employer] Apps Indication:BMI 40.0-44.9, adult Start:09-Aug-2021 Instruction Type:Patient Education Patient Instructions Indication:Nonsmoker Start:28-May-2021 Instruction Type:Provider Instructions for Treatment How to Access Health Informa tion Online using Patient Portal and 3rd [employer] Apps Indication:Nonsmoker Start:28-May-2021 Instruction Type:Patient Education Patient Instructions Indication:BMI 40.0-44.9, adult Start:04-Apr-2021 Instruction Type:Provider Instructions for Treatment How to Access Health Informa tion Online using Patient Portal and 3rd [employer] Apps Indication:BMI 40.0-44.9, adult Start:04-Apr-2021 Instruction Type:Patient Education Patient Instructions Indication:BMI 40.0-44.9, adult Start:20-Mar-2021 Instruction Type:Provider Instructions for Treatment How to Access Health Informa tion Online using Patient Portal and 3rd [employer] Apps Indication:BMI 40.0-44.9, adult Start:20-Mar-2021 Instruction Type:Patient Education Patient Instructions Indication:Type 2 diabetes mellitus Start:13-Dec-2020 Instruction Type:Provider Instructions for Treatment How to Access Health Informa tion Online using Patient Portal and 3rd [employer] Apps Indication:Type 2 diabetes mellitus Start:13-Dec-2020 Instruction Type:Patient Education Patient Instructions Indication:Type 2 diabetes mellitus Start:15-Sep-2020 Instruction Type:Provider Instructions for Treatment How to Access Health Informa tion Online using Patient Portal and 3rd [employer] Apps Indication:Type 2 diabetes mellitus Start:15-Sep-2020 Instruction Type:Patient Education [facility] Work Phone: reason for referral (narrative)No reason for referral [facility]: Summary Purpose Family History No Family History Records FoundUnknown Family Member Name Dates Details Brother 1 Comments:colon cancer, ID, D M, lung cancer, Pancrease cancer Status:Active Father Comments:Dm, heart problems Status:Active Mother Comments:pace maker, HTN, Status:Active Sister 1 Comments:DM Status:Active Unknown Family Member Name Dates Details Brother 1 Comments:colon cancer, ID, D M, lung cancer, Pancrease cancer Status:Active Father Comments:Dm, heart problems Status:Active Mother Comments:pace maker, HTN, Status:Active Sister 1 Comments:DM Status:Active Unknown Family Member Name Dates Details Brother 1 Comments:colon cancer, ID, D M, lung cancer, Pancrease cancer Status:Active Father Comments:Dm, heart problems Status:Active Mother Comments:pace maker, HTN, Status:Active Sister 1 Comments:DM Status:Active Unknown Family Member Name Dates Details Brother 1 Comments:colon cancer, ID, D M, lung cancer, Pancrease cancer Status:Active Father Comments:Dm, heart problems Status:Active Mother Comments:pace maker, HTN, Status:Active Sister 1 Comments:DM Status:Active Unknown Family Member Name Dates Details Brother 1 Comments:colon cancer, ID, D M, lung cancer, Pancrease cancer Status:Active Father Comments:Dm, heart problems Status:Active Mother Comments:pace maker, HTN, Status:Active Sister 1 Comments:DM Status:Active Unknown Family Member Name Dates Details Brother 1 Comments:colon cancer, ID, D M, lung cancer, Pancrease cancer Status:Active Father Comments:Dm, heart problems Status:Active Mother Comments:pace maker, HTN, Status:Active Sister 1 Comments:DM Status:Active Unknown Family Member Name Dates Details Brother 1 Comments:colon cancer, ID, D M, lung cancer, Pancrease cancer Status:Active Father Comments:Dm, heart problems Status:Active Mother Comments:pace maker, HTN, Status:Active Sister 1 Comments:DM Status:Active Unknown Family Member Name Dates Details Brother 1 Comments:colon cancer, ID, D M, lung cancer, Pancrease cancer Status:Active Father Comments:Dm, heart problems Status:Active Mother Comments:pace maker, HTN, Status:Active Sister 1 Comments:DM Status:Active Unknown Family Member Name Dates Details Brother 1 Comments:colon cancer, ID, D M, lung cancer, Pancrease cancer Status:Active Father Comments:Dm, heart problems Status:Active Mother Comments:pace maker, HTN, Status:Active Sister 1 Comments:DM Status:Active Unknown Family Member Name Dates Details Brother 1 Comments:colon cancer, ID, D M, lung cancer, Pancrease cancer Status:Active Father Comments:Dm, heart problems Status:Active Mother Comments:pace maker, HTN, Status:Active Sister 1 Comments:DM Status:Active Unknown Family Member Name Dates Details Brother 1 Comments:colon cancer, ID, D M, lung cancer, Pancrease cancer Status:Active Father Comments:Dm, heart problems Status:Active Mother Comments:pace maker, HTN, Status:Active Sister 1 Comments:DM Status:Active Unknown Family Member Name Dates Details Brother 1 Comments:colon cancer, ID, D M, lung cancer, Pancrease cancer Status:Active Father Comments:Dm, heart problems Status:Active Mother Comments:pace maker, HTN, Status:Active Sister 1 Comments:DM Status:Active Unknown Family Member Name Dates Details Brother 1 Comments:colon cancer, ID, D M, lung cancer, Pancrease cancer Status:Active Father Comments:Dm, heart problems Status:Active Mother Comments:pace maker, HTN, Status:Active Sister 1 Comments:DM Status:Active Relationship Condition Age at Onset Recorded Date/T ousmane brother Diabetes mellitus Unknown Cardiac disease Unknown Hypertension Unknown Malignant neoplasm of colon Unknown mother Hypertension Unknown Unknown Family Member Name Dates Details Brother 1 Comments:colon cancer, ID, D M, lung cancer, Pancrease cancer Status:Active Father Comments:Dm, heart problems Status:Active Mother Comments:pace maker, HTN, Status:Active Sister 1 Comments:DM Status:Active Unknown Family Member Name Dates Details Brother 1 Comments:colon cancer, ID, D M, lung cancer, Pancrease cancer Status:Active Father Comments:Dm, heart problems Status:Active Mother Comments:pace maker, HTN, Status:Active Sister 1 Comments:DM Status:Active Unknown Family Member Name Dates Details Brother 1 Comments:colon cancer, ID, D M, lung cancer, Pancrease cancer Status:Active Father Comments:Dm, heart problems Status:Active Mother Comments:pace maker, HTN, Status:Active Sister 1 Comments:DM Status:Active Unknown Family Member Name Dates Details Brother 1 Comments:colon cancer, ID, D M, lung cancer, Pancrease cancer Status:Active Father Comments:Dm, heart problems Status:Active Mother Comments:pace maker, HTN, Status:Active Sister 1 Comments:DM Status:Active Unknown Family Member Name Dates Details Brother 1 Comments:colon cancer, ID, D M, lung cancer, Pancrease cancer Status:Active Father Comments:Dm, heart problems Status:Active Mother Comments:pace maker, HTN, Status:Active Sister 1 Comments:DM Status:Active Unknown Family Member Name Dates Details Brother 1 Comments:colon cancer, ID, D M, lung cancer, Pancrease cancer Status:Active [...] Name Dates Details Brother 1 Comments:colon cancer, ID, D M, lung cancer, Pancrease cancer Status:Active Father Comments:Dm, heart problems Status:Active Mother Comments:pace maker, HTN, Status:Active Sister 1 Comments:DM Status:Active Unknown Family Member Name Dates Details Brother 1 Comments:colon cancer, ID, D M, lung cancer, Pancrease cancer Status:Active [...] Name Dates Details Brother 1 Comments:colon cancer, ID, D M, lung cancer, Pancrease cancer Status:Active Father Comments:Dm, heart problems Status:Active Mother Comments:pace maker, HTN, Status:Active Sister 1 Comments:DM Status:Active Unknown Family Member Name Dates Details Brother 1 Comments:colon cancer, ID, D M, lung cancer, Pancrease cancer Status:Active Father Comments:Dm, heart problems Status:Active Mother Comments:pace maker, HTN, Status:Active Sister 1 Comments:DM Status:Active Unknown Family Member Name Dates Details Brother 1 Comments:colon cancer, ID, D M, lung cancer, Pancrease cancer Status:Active Father Comments:Dm, heart problems Status:Active Mother Comments:pace maker, HTN, Status:Active Sister 1 Comments:DM Status:Active Unknown Family Member Name Dates Details Brother 1 Comments:colon cancer, ID, D M, lung cancer, Pancrease cancer Status:Active Father Comments:Dm, heart problems Status:Active Mother Comments:pace maker, HTN, Status:Active Sister 1 Comments:DM Status:Active Unknown Family Member Name Dates Details Brother 1 Comments:colon cancer, ID, D M, lung cancer, Pancrease cancer Status:Active Father Comments:Dm, heart problems Status:Active Mother Comments:pace maker, HTN, Status:Active Sister 1 Comments:DM Status:Active Unknown Family Member Name Dates Details Brother 1 Comments:colon cancer, ID, D M, lung cancer, Pancrease cancer Status:Active Father Comments:Dm, heart problems Status:Active Mother Comments:pace maker, HTN, Status:Active Sister 1 Comments:DM Status:Active Unknown Family Member Name Dates Details Brother 1 Comments:colon cancer, ID, D M, lung cancer, Pancrease cancer Status:Active Father Comments:Dm, heart problems Status:Active Mother Comments:pace maker, HTN, Status:Active Sister 1 Comments:DM Status:Active Unknown Family Member Name Dates Details Brother 1 Comments:colon cancer, ID, D M, lung cancer, Pancrease cancer Status:Active [...] Name Dates Details Brother 1 Comments:colon cancer, ID, D M, lung cancer, Pancrease cancer Status:Active Father Comments:Dm, heart problems Status:Active Mother Comments:pace maker, HTN, Status:Active Sister 1 Comments:DM Status:Active Unknown Family Member Name Dates Details Brother 1 Comments:colon cancer, ID, D M, lung cancer, Pancrease cancer Status:Active Father Comments:Dm, heart problems Status:Active Mother Comments:pace maker, HTN, Status:Active Sister 1 Comments:DM Status:Active Unknown Family Member Name Dates Details Brother 1 Comments:colon cancer, ID, D M, lung cancer, Pancrease cancer Status:Active Father Comments:Dm, heart problems Status:Active Mother Comments:pace maker, HTN, Status:Active Sister 1 Comments:DM Status:Active Unknown Family Member Name Dates Details Brother 1 Comments:colon cancer, ID, D M, lung cancer, Pancrease cancer Status:Active Father Comments:Dm, heart problems Status:Active Mother Comments:pace maker, HTN, Status:Active Sister 1 Comments:DM Status:Active Unknown Family Member Name Dates Details Brother 1 Comments:colon cancer, ID, D M, lung cancer, Pancrease cancer Status:Active Father Comments:Dm, heart problems Status:Active Mother Comments:pace maker, HTN, Status:Active Sister 1 Comments:DM Status:Active Unknown Family Member Name Dates Details Brother 1 Comments:colon cancer, ID, D M, lung cancer, Pancrease cancer Status:Active Father Comments:Dm, heart problems Status:Active Mother Comments:pace maker, HTN, Status:Active Sister 1 Comments:DM Status:Active Unknown Family Member Name Dates Details Brother 1 Comments:colon cancer, ID, D M, lung cancer, Pancrease cancer Status:Active Father Comments:Dm, heart problems Status:Active Mother Comments:pace maker, HTN, Status:Active Sister 1 Comments:DM Status:Active Unknown Family Member Name Dates Details Brother 1 Comments:colon cancer, ID, D M, lung cancer, Pancrease cancer Status:Active Father Comments:Dm, heart problems Status:Active Mother Comments:pace maker, HTN, Status:Active Sister 1 Comments:DM Status:Active Unknown Family Member Name Dates Details Brother 1 Comments:colon cancer, ID, D M, lung cancer, Pancrease cancer Status:Active Father Comments:Dm, heart problems Status:Active Mother Comments:pace maker, HTN, Status:Active Sister 1 Comments:DM Status:Active Unknown Family Member Name Dates Details Brother 1 Comments:colon cancer, ID, D M, lung cancer, Pancrease cancer Status:Active Father Comments:Dm, heart problems Status:Active Mother Comments:pace maker, HTN, Status:Active Sister 1 Comments:DM Status:Active Unknown Family Member Name Dates Details Brother 1 Comments:colon cancer, ID, D M, lung cancer, Pancrease cancer Status:Active Father Comments:Dm, heart problems Status:Active Mother Comments:pace maker, HTN, Status:Active Sister 1 Comments:DM Status:Active Unknown Family Member Name Dates Details Brother 1 Comments:colon cancer, ID, D M, lung cancer, Pancrease cancer Status:Active Father Comments:Dm, heart problems Status:Active Mother Comments:pace maker, HTN, Status:Active Sister 1 Comments:DM Status:Active Unknown Family Member Name Dates Details Brother 1 Comments:colon cancer, ID, D M, lung cancer, Pancrease cancer Status:Active Father Comments:Dm, heart problems Status:Active Mother Comments:pace maker, HTN, Status:Active Sister 1 Comments:DM Status:Active Unknown Family Member Name Dates Details Brother 1 Comments:colon cancer, ID, D M, lung cancer, Pancrease cancer Status:Active Father Comments:Dm, heart problems Status:Active Mother Comments:pace maker, HTN, Status:Active Sister 1 Comments:DM Status:Active Unknown Family Member Name Dates Details Brother 1 Comments:colon cancer, ID, D M, lung cancer, Pancrease cancer Status:Active Father Comments:Dm, heart problems Status:Active Mother Comments:pace maker, HTN, Status:Active Sister 1 Comments:DM Status:Active Unknown Family Member Name Dates Details Brother 1 Comments:colon cancer, ID, D M, lung cancer, Pancrease cancer Status:Active Father Comments:Dm, heart problems Status:Active Mother Comments:pace maker, HTN, Status:Active Sister 1 Comments:DM Status:Active Unknown Family Member Name Dates Details Brother 1 Comments:colon cancer, ID, D M, lung cancer, Pancrease cancer Status:Active Father Comments:Dm, heart problems Status:Active Mother Comments:pace maker, HTN, Status:Active Sister 1 Comments:DM Status:Active Unknown Family Member Name Dates Details Brother 1 Comments:colon cancer, ID, D M, lung cancer, Pancrease cancer Status:Active Father Comments:Dm, heart problems Status:Active Mother Comments:pace maker, HTN, Status:Active Sister 1 Comments:DM Status:Active Unknown Family Member Name Dates Details Brother 1 Comments:colon cancer, ID, D M, lung cancer, Pancrease cancer Status:Active Father Comments:Dm, heart problems Status:Active Mother Comments:pace maker, HTN, Status:Active Sister 1 Comments:DM Status:Active Unknown Family Member Name Dates Details Brother 1 Comments:colon cancer, ID, D M, lung cancer, Pancrease cancer Status:Active Father Comments:Dm, heart problems Status:Active Mother Comments:pace maker, HTN, Status:Active Sister 1 Comments:DM Status:Active Unknown Family Member Name Dates Details Brother 1 Comments:colon cancer, ID, D M, lung cancer, Pancrease cancer Status:Active Father Comments:Dm, heart problems Status:Active Mother Comments:pace maker, HTN, Status:Active Sister 1 Comments:DM Status:Active Unknown Family Member Name Dates Details Brother 1 Comments:colon cancer, ID, D M, lung cancer, Pancrease cancer Status:Active Father Comments:Dm, heart problems Status:Active Mother Comments:pace maker, HTN, Status:Active Sister 1 Comments:DM Status:Active Unknown Family Member Name Dates Details Brother 1 Comments:colon cancer, ID, D M, lung cancer, Pancrease cancer Status:Active Father Comments:Dm, heart problems Status:Active Mother Comments:pace maker, HTN, Status:Active Sister 1 Comments:DM Status:Active Unknown Family Member Name Dates Details Brother 1 Comments:colon cancer, ID, D M, lung cancer, Pancrease cancer Status:Active Father Comments:Dm, heart problems Status:Active Mother Comments:pace maker, HTN, Status:Active Sister 1 Comments:DM Status:Active Unknown Family Member Name Dates Details Brother 1 Comments:colon cancer, ID, D M, lung cancer, Pancrease cancer Status:Active Father Comments:Dm, heart problems Status:Active Mother Comments:pace maker, HTN, Status:Active Sister 1 Comments:DM Status:Active Unknown Family Member Name Dates Details Brother 1 Comments:colon cancer, ID, D M, lung cancer, Pancrease cancer Status:Active Father Comments:Dm, heart problems Status:Active Mother Comments:pace maker, HTN, Status:Active Sister 1 Comments:DM Status:Active Advance Directives No Advanced Directives Records Found Advance Directive Response Recorded Date/ Time Advance Directives Yes August 27, 2017 8:50pm Living Will No May 12 12:29pm Power of [employer]els [employer] Worker No May 12, 2020 12:29pm Advance Directive Response Recorded Date/ Time Name of Medical Power of Biofuels Plant Construction Worker KYLIEA MANI NGUYEN AND KATTY CHI April 22, 2022 2:12pm Advance Directives Yes August 27, 2017 8:50pm Living Will Yes April 22 2:12pm Power of [employer] Construction Worker Yes April 22 2:12pm Advance Directive Response Recorded Date/ Time Name of Medical Power of [employer]fuels [employer] Construction Worker KYLIEA MANI SOEN [facility]ATT[facility] April 22, 2022 2:12pm Name of Medical Power of [employer]fuels Plant Construction Worker DAUGHTER May 14, 2022 10:08pm Advance Directives Yes August 27, 2017 8:50pm Living Will Yes May 14 10:08pm Power of [employer] Construction Worker Yes May 14, 2022 10:08pm Advance Directive Response Recorded Date/ Time Name of Medical Power of Biofuels Plant Construction Worker POA MANI PAUL AND KATTY [facility]I April 22, 2022 2:12pm Name of Medical Power of [employer]fu[employer] Plant Construction Worker paul & sanam Chi May 15, 2022 2:38am Name of Medical Power of [employer]fuels Plant Construction Worker Katty Chi May 19, 2022 11:08pm Advance Directives Yes August 27, 2017 8:50pm Living Will Yes May 19 11:08pm Power of [employer]fuels Plant Construction Worker Yes May 19, 2022 11:08pm Advance Directive Response Recorded Date/ Time Name of Medical Power of Biofuels Plant Construction Worker POA MANI NGUYEN [employer] KATTY [facility] April 22, 2022 2:12pm Name of Medical Power of [employer]fuels Plant Construction Worker paul & sanam Chi May 15, 2022 2:38am Name of Medical Power of [employer]fuels Plant Construction Worker Katty Chi and Paul [employer] May 20, 2022 1:33am Advance Directives Yes August 27, 2017 8:50pm Living Will Yes May 20 1:33am Power of [employer]fuels Plant Construction Worker Yes May 20, 2022 1:33am Advance Directive Response Recorded Date/ Time Name of Medical Power of Biofuels Plant Construction Worker KYLIEA MANI NGUYEN AND KATTY CHI April 22, 2022 1:12pm Name of Medical Power of [employer]fuels Plant Construction Worker paul & sanam Chi May 15, 2022 1:38am Name of Medical Power of Biofuels Plant Construction Worker Katty Chi and Clio [employer] May 20, 2022 12:33am Name of Medical Power of Biofuels Plant Construction Worker Sanam and Paul Chi May 24, 2022 1:26pm Advance Directives Yes August 27, 2017 7:50pm Living Will Yes May 24 1:26pm Power of [employer]fuels Plant Construction Worker Yes May 24, 2022 1:26pm Advance Directive Response Recorded Date/ Time Name of Medical Power of Biofuels Plant Construction Worker JUAN NGUYEN AND KATTY CHI April 22, 2022 1:12pm Name of Medical Power of [employer]fuels Plant Construction Worker paul & sanam Chi May 15, 2022 1:38am Name of Medical Power of Biofuels Plant Construction Worker Katty Chi and [employer] May 20, 2022 12:33am Name of Medical Power of Biofuels Plant Construction Worker Sanam and Paul Chi May 24, 2022 1:26pm Advance Directives Yes May 3:55pm Living Will Yes June 11, 3:55pm Power of Biofuels Plant Construction Worker Yes June 11, 2022 3:55pm Advance Directive Response Recorded Date/ Time Name of Medical Power of Biofuels Plant Construction Worker JUAN SOEN AND KATTY CHI April 22, 2022 1:12pm Name of Medical Power of Biofuels Plant Construction Worker paul & sanam Chi May 15, 2022 1:38am Name of Medical Power of Biofuels Plant Construction Worker Katty Chi and [employer] May 20, 2022 12:33am Name of Medical Power of Biofuels Plant Construction Worker Sanam and Paul Chi May 24, 2022 1:26pm Advance Directives Yes May 3:55pm Living Will No July 02, 022 8:33am Power of Biofuels Plant Construction Worker No July 02, 2022 8:33am Advance Directive Response Recorded Date/ Time Name of Medical Power of Biofuels Plant Construction Worker JUAN SOEN AND KATTY CHI April 22, 2022 1:12pm Name of Medical Power of Biofuels Plant Construction Worker paul & sanam Chi May 15, 2022 1:38am Name of Medical Power of Biofuels Plant Construction Worker Katty Chi and [employer] May 20, 2022 12:33am Name of Medical Power of Biofuels Plant Construction Worker Sanam and Paul Chi May 24, 2022 1:26pm Name of Medical Power of Biofuels Plant Construction Worker paul chi July 02, 2022 12:59pm Name of Medical Power of Biofuels Plant Construction Worker PAUL MIRELES AND SANAM [facility] S[facility] July 13, 2022 6:53pm Advance Directives Yes May 3:55pm Living Will Yes July 13 022 6:53pm Power of [employer]fuels Plant Construction Worker Yes July 13, 2022 6:53pm Advance Directive Response Recorded Date/ Time Name of Medical Power of Biofuels Plant Construction Worker JUAN SOEN AND KATTY CHI April 22, 2022 1:12pm Name of Medical Power of Biofuels Plant Construction Worker paul & sanam Chi May 15, 2022 1:38am Name of Medical Power of Biofuels Plant Construction Worker Katty Chi and [employer] May 20, 2022 12:33am Name of Medical Power of Biofuels Plant Construction Worker Sanam and Paul Chi May 24, 2022 1:26pm Name of Medical Power of [employer]fuels Plant Construction Worker paul chi July 02, 2022 12:59pm Name of Medical Power of Biofuels Plant Construction Worker PAUL CHI AND SANAM [facility] July 14, 2022 1:44am Advance Directives Yes May 3:55pm Living Will Yes July 14 022 1:44am Power of [employer]fuels Plant Construction Worker Yes July 14, 2022 1:44am Advance Directive Response Recorded Date/ Time Name of Medical Power of [employer]fuels Plant Construction Worker paul mireles July 02, 2022 1:59pm Name of Medical Power of Biofuels Plant Construction Worker PAUL MIRELES AND SANAM MIRELES- MANI July 14, 2022 2:44am Advance Directives Yes May 4:55pm Living Will Yes July 14, 022 2:44am Power of [employer]fuels Plant Construction Worker Yes July 14, 2022 2:44am Advance Directive Response Recorded Date/ Time Advance Directives Yes May 4:55pm Living Will Yes July 14 022 2:44am Power of [employer]els Plant Construction Worker Yes July 14, 2022 2:44am Advance Directive Response Recorded Date/ Time Advance Directives Yes May 3:55pm Living Will Yes July 14, 022 1:44am Power of [employer] Plant Construction Worker Yes July 14, 2022 1:44am Advance Directive Response Recorded Date/ Time Name of Medical Power of [employer]fuels Plant Construction Worker PAUL MIRELES AND SANAM MIRELES September 10, 2023 4:25pm Advance Directives Yes May 3:55pm Living Will Yes September 10, 024 4:25pm Power of [employer] Plant Construction Worker Yes September 10, 2023 4:25pm Advance Directive Response Recorded Date/ Time Name of Medical Power of [employer]fuels Plant Construction Worker PAUL MIRELES AND SANAM MIRELES September 10, 2023 5:25pm Advance Directives Yes May 4:55pm Living Will Yes September 10, 024 5:25pm Power of [employer]fuels Plant Construction Worker Yes September 10, 2023 5:25pm Advance Directive Response Recorded Date/ Time Name of Medical Power of Biofuels Plant Construction Worker Katty Mireles and Paul Mireles- Mani May 20, 2022 12:33am Name of Medical Power of Biofuels Plant Construction Worker Sanam and Paul Mireles May 24, 2022 1:26pm Name of Medical Power [employer] Worker paul mireles July 02, 2022 12:59pm Name of Medical Power of Biofuels [employer] Worker PAUL MIRELES AND SANAM MIRELES- MANI July 14, 2022 1:44am Advance Directives Yes May 3:55pm Living Will Yes July 14 022 1:44am Power of [employer]fuels Plant [employer] Worker Yes July 14, 2022 1:44am Advance Directive Response Recorded Date/ Time Living Will No March 12 7:24pm Do you have a Healthcare Power of Biofuels Plant Construction Worker? No March 12, 2024 7:24pm Advance Directives Yes May 4:55pm Advance Directive Response Recorded Date/ Time Advance Directives Yes December 24 9:29am Living Will No March 12 7:24pm Do you have a Healthcare Power of Biofuels Plant Construction Worker? No March 12, 2024 7:24pm Instructions Name Dates Details Patient Instructions Indication:Type 2 diabetes mellitus Start:15-Sep-2020 Instruction Type:Provider Instructions for Treatment How to Access Health Informa tion Online using Patient Portal and [employer] Apps Indication:Type 2 diabetes mellitus Start:15-Sep-2020 Instruction Type:Patient Education Name Dates Details Patient Instructions Indication:Type 2 diabetes mellitus Start:15-Sep-2020 Instruction Type:Provider Instructions for Treatment How to Access Health Informa tion Online using Patient Portal and [employer] Apps Indication:Type 2 diabetes mellitus Start:15-Sep-2020 Instruction [...] content) DATE CREATED AUTHOR 01/27/2018 Zheng Patel [facility] DATE CREATED AUTHOR AUTHOR'S ORGANIZ ATION 02/25/2019 [facility] DATE CREATED AUTHOR AUTHOR'S ORGANIZ ATION 08/17/2021 [facility] DATE CREATED AUTHOR AUTHOR'S ORGANIZ ATION 08/24/2022 [facility] DATE CREATED AUTHOR AUTHOR'S ORGANIZ ATION 01/18/2025 [facility] Goals (unrecognized section and content) Goals may [...] Provider, Referr ing Provider Active Rama Camara HEAD OF SALES AND MARKETING, HEAD OF SALES AND MARKETING-C Attending Provider Active Team Status: Active Member [...] Provider, Referr ing Provider Active Susan Mayberry HEAD OF SALES AND MARKETING, HEAD OF SALES AND MARKETING-C Attending Provider Active Team Status: Active Member [...] Provider, Referr ing Provider Active Zelda Mcdaniels HEAD OF SALES AND MARKETING, HEAD OF SALES AND MARKETING-C Attending Provider Active Team Status: Active Member [...] DO Primary Care Provider Active Rama Camara HEAD OF SALES AND MARKETING, HEAD OF SALES AND MARKETING-C Attending Provider, Referring P opal Active Team [...] Provider, Referr ing Provider Active Dr. Cyrus Wihpple MD Attending Provider Active Team Status: Inactive [...] DO Primary Care Provider Active Ovidio Gutierrez HEAD OF SALES AND MARKETING, HEAD OF SALES AND MARKETING-C Attending Provider Active Team Status: Inactive Member [...] January 12, 2025 Kimberly Hernandez PA, PA Attending Provider Active [...] BE BASED ON THE PRIMARY CLINICAL RECORDS. [facility] [employer] [facility]. provides no warranty or guarantee of the accuracy or completeness of information in this document.
--- NOTE | 2025-01-23 08:55 | RAD_ITS ---
PROCEDURE: CHEST PA AND LATERAL 01/23/2025 REASON FOR EXAM: COUGH TECHNIQUE: CHEST PA AND LATERAL COMPARISON: None. FINDINGS: There is patchy airspace disease in the midlung zone on the right and in both lower lung zones. There are no pleural effusions. The heart size is normal. There is calcific vascular disease of the thoracic aorta. RAD/Chest PA and Lateral IMPRESSION: 1. Patchy airspace disease in both lungs, consistent with pneumonia. 2. Other findings as noted. Reading Location: [id number]
--- NOTE | 2025-01-23 08:55 | RAD_ITS ---
PROCEDURE: CHEST PA AND LATERAL 01/23/2025 REASON FOR EXAM: COUGH TECHNIQUE: CHEST PA AND LATERAL COMPARISON: None. FINDINGS: There is patchy airspace disease in the midlung zone on the right and in both lower lung zones. There are no pleural effusions. The heart size is normal. There is calcific vascular disease of the thoracic aorta. RAD/Chest PA and Lateral IMPRESSION: 1. Patchy airspace disease in both lungs, consistent with pneumonia. 2. Other findings as noted. Reading Location: [id number]
[2025-01-23 09:05] LABS: Pro- Brain NATRIURETIC PEPTIDE 303 pg/mL (<=1800)
[2025-01-23 09:08] LABS: Anion Gap 14 (5-15); BUN 29 mg/dL (4-19); BUN/Creat Ratio 15.4 RATIO (10-20); Calcium,Total 10.5 mg/dL (7.6-11.0); Carbon Dioxide 23.4 mmol/L (21.0-32.0); Chloride 100 mmol/L (98-108); Estimated Creatinine Clearance 22.96 ml/min (50-250); Glucose 151 mg/dL (70-99); Potassium 4.3 mmol/L (3.3-5.1)
[2025-01-23] MEDS: Azithromycin 500 MG in 0.9% Normal Saline (250mL Bag) 250 ML 255 MG IV (10:55)
--- NOTE | 2025-01-23 11:30 | RAD_ITS ---
PROCEDURE: CHEST PA AND LATERAL 01/23/2025 REASON FOR EXAM: B/L LOWER LOBES OPACITY TECHNIQUE: CHEST PA AND LATERAL COMPARISON: Two-view chest, 01/23/2025 at 8:59 a.m. FINDINGS: There is improved aeration of both lungs consistent with the prior opacities being atelectasis. There are no pleural effusions. The heart size is normal. There is calcific vascular disease of the thoracic aorta. RAD/Chest PA and Lateral IMPRESSION: Interval improved aeration of the lungs consistent with atelectasis. Reading Location: [id number]
--- NOTE | 2025-01-23 11:30 | RAD_ITS ---
PROCEDURE: CHEST PA AND LATERAL 01/23/2025 REASON FOR EXAM: B/L LOWER LOBES OPACITY TECHNIQUE: CHEST PA AND LATERAL COMPARISON: Two-view chest, 01/23/2025 at 8:59 a.m. FINDINGS: There is improved aeration of both lungs consistent with the prior opacities being atelectasis. There are no pleural effusions. The heart size is normal. There is calcific vascular disease of the thoracic aorta. RAD/Chest PA and Lateral IMPRESSION: Interval improved aeration of the lungs consistent with atelectasis. Reading Location: [id number]
--- NOTE | 2025-01-23 16:55 | CM.ED ---
Social Work Date of referral: 01/23/2025 Reason for referral: Discharge questions Front Of House Manager received a call from patient's daughter, Ruby who explained to social contact worker that her mother had presented to the ED earlier on this date, was diagnosed with pneumonia and was discharged home because it was thought that patient's insurance wouldn't pay for hospital admission. Ruby stated patient did show improvement of symptoms with breathing treatments and was also sent home with an antibiotic. Ruby wanted to know what to do should patient start to have difficulty breathing during the middle of the night or if symptoms worsen and also how to get connected with home health care. Front Of House Manager stated if Ms. Ramires symptoms worsen, to call 911 or bring patient back to the ED and also anytime she feels it is needed. Front Of House Manager also encouraged Ruby to reach out to [facility]. [facility] tomorrow and request a referral for home health care which Ruby confirmed she would do. No other questions/concerns noted at this time. Benja Jeffries, FBI SHARPSHOOTER, CLOTHES SHAKER
--- NOTE | 2025-01-23 16:55 | CM.ED ---
Social Work Date of referral: 01/23/2025 Reason for referral: Discharge questions Thread Milling Machine Set Up Operator received a call from patient's daughter, Ruby who explained to social service coordinator that her mother had presented to the ED earlier on this date, was diagnosed with pneumonia and was discharged home because it was thought that patient's insurance wouldn't pay for hospital admission. Ruby stated patient did show improvement of symptoms with breathing treatments and was also sent home with an antibiotic. Ruby wanted to know what to do should patient start to have difficulty breathing during the middle of the night or if symptoms worsen and also how to get connected with home health care. Thread Milling Machine Set Up Operator stated if Ms. Ramires symptoms worsen, to call 911 or bring patient back to the ED and also anytime she feels it is needed. Thread Milling Machine Set Up Operator also encouraged Ruby to reach out to [facility] tomorrow and request a referral for home health care which Ruby confirmed she would do. No other questions/concerns noted at this time. Benja Jeffries, EMERGENCY SPECIALIST, MUNICIPAL FIREFIGHTER
== END 2025-01-23 15:21 | disposition home or self-care (01) ==
PROVIDERS: Emergency Provider Surgery; PCP Internal Medicine; Visit Provider Surgery
DX: J18.9 Pneumonia, unspecified organism (principal); I13.0 Hypertensive heart and chronic kidney disease with heart failure and stage 1 through stage 4 chronic kidney disease, or unspecified chronic kidney disease; I50.9 Heart failure, unspecified; E11.22 Type 2 diabetes mellitus with diabetic chronic kidney disease; N18.31 Chronic kidney disease, stage 3a
CPT/HCPCS: 71046; 80048; 83880; 85025; 87631; 93005; 94640; 96365; 96366; 96367; 99284; A4216

== ENCOUNTER → 2025-01-25 | Outpatient (CLI) | payer MEDICARE, SELFPAY ==
[2025-01-25 10:46] LABS: Anion Gap 11 (5-15); BUN 25 mg/dL (4-19); BUN/Creat Ratio 15.2 RATIO (10-20); Calcium,Total 10.8 mg/dL (7.6-11.0); Carbon Dioxide 24.9 mmol/L (21.0-32.0); Chloride 105 mmol/L (98-108); Glucose 165 mg/dL (70-99); Potassium 4.3 mmol/L (3.3-5.1)
== END | disposition home or self-care (01) ==
LOC: MTLAB 08:32
PROVIDERS: PCP Internal Medicine; Referring Provider Surgery; Visit Provider Surgery
DX: N28.9 Disorder of kidney and ureter, unspecified (principal)
CPT/HCPCS: 36415; 80048

== ENCOUNTER → 2025-01-27 | Outpatient (CLI) | payer MEDICARE, SELFPAY ==
[2025-01-27 15:59] LABS: Anion Gap 13 (5-15); BUN 32 mg/dL (4-19); BUN/Creat Ratio 17.1 RATIO (10-20); Calcium,Total 11.1 mg/dL (7.6-11.0); Carbon Dioxide 24.5 mmol/L (21.0-32.0); Chloride 102 mmol/L (98-108); Glucose 123 mg/dL (70-99); Potassium 4.5 mmol/L (3.3-5.1)
== END | disposition home or self-care (01) ==
LOC: LABSPEC 15:18
PROVIDERS: PCP Internal Medicine; Referring Provider Internal Medicine; Visit Provider Internal Medicine
DX: Z51.81 Encounter for therapeutic drug level monitoring (principal)
CPT/HCPCS: 80048

== ENCOUNTER → 2025-02-02 | Outpatient (CLI) | payer MEDICARE, SELFPAY ==
[2025-02-02 15:50] LABS: Anion Gap 13 (5-15); BUN 39 mg/dL (4-19); BUN/Creat Ratio 25.3 RATIO (10-20); Calcium,Total 10.8 mg/dL (7.6-11.0); Carbon Dioxide 23.4 mmol/L (21.0-32.0); Chloride 101 mmol/L (98-108); Glucose 108 mg/dL (70-99); Potassium 4.7 mmol/L (3.3-5.1)
== END | disposition home or self-care (01) ==
LOC: MTLAB 10:49
PROVIDERS: PCP Internal Medicine; Referring Provider Internal Medicine; Visit Provider Internal Medicine
DX: N18.32 Chronic kidney disease, stage 3b (principal)
CPT/HCPCS: 36415; 80048

== ENCOUNTER → 2025-03-10 | Outpatient (CLI) | payer MEDICARE, SELFPAY ==
[2025-03-10 11:07] LABS: Anion Gap 13 (5-15); BUN 37 mg/dL (4-19); BUN/Creat Ratio 23.5 RATIO (10-20); Calcium,Total 10.5 mg/dL (7.6-11.0); Carbon Dioxide 24.1 mmol/L (21.0-32.0); Chloride 103 mmol/L (98-108); Glucose 88 mg/dL (70-99); Potassium 4.8 mmol/L (3.3-5.1)
== END | disposition home or self-care (01) ==
LOC: LABSPEC 09:52
PROVIDERS: PCP Internal Medicine; Referring Provider Internal Medicine; Visit Provider Internal Medicine
DX: Z51.81 Encounter for therapeutic drug level monitoring (principal)
CPT/HCPCS: 80048

== ENCOUNTER → 2025-03-17 | Outpatient (CLI) | payer MEDICARE, SELFPAY | END | disposition home or self-care (01) | PROVIDERS: PCP Internal Medicine; Referring Provider Nurse Practitioner Acute Care; Visit Provider Nurse Practitioner Acute Care | DX: G47.33 Obstructive sleep apnea (adult) (pediatric) (principal) | CPT/HCPCS: 95811 ==

== ENCOUNTER → 2025-04-07 | Outpatient (CLI) | payer MEDICARE, SELFPAY ==
--- NOTE | 2025-04-07 13:30 | BD_ITS ---
PROCEDURE: DEXA BONE DENSITY STUDY 04/07/2025 REASON FOR EXAM: F, age 89 y/o . Postmenopausal. TECHNIQUE: Procedure Code: BDDBD Modality: DX Procedure: DEXA BONE DENSITY STUDY COMPARISON: DEXA examination dated 04/25/2022 FINDINGS: BMD and T-SCORES Lumbar spine: 1.116 g/cm2, T-score 0.9 Levels: L1 through L4 Change from prior: There has been a significant decrease in the bone mineral density of the lumbar spine by 8.3% since the prior study dated 04/25/2022. Left femoral neck: 0.673 g/cm2, T-score -1.6 Left total hip: 0.919 g/cm2, T-score -0.2 Change from prior: There has been a significant decrease in the bone mineral density of the left hip by 15.2% since the prior study dated 04/25/2022.. Right femoral neck: 0.762 g/cm2, T-score -0.8 Right total hip: 0.927 g/cm2, T-score -0.1 Change from prior: There has been a significant decrease in the bone mineral density of the right hip by 8.7% since the prior study dated 04/25/2022 The World Health Organization has defined the following categories based on bone density: Normal bone density: T-score equal to or greater than -1.0 Osteopenia: T-score between -1.0 and -2.5 Osteoporosis: T-score equal to or less than -2.5 FRAX (or Comparable) Fracture Risk Assessment: 10 Year Probability of Fracture: Major Osteoporotic Fracture: 9.8% Hip Fracture: 2.6% (Note: FRAX is not to be reported in setting of normal range bone density, osteoporosis on DEXA, known history of osteoporosis, prior osteoporotic hip or vertebral fracture, or for any patient undergoing pharmacological treatment for bone loss.) The National Osteoporosis Foundation (NOF) recommends pharmacological treatment for patients with a FRAX 10-year risk of 3% or higher for a hip fracture, or 20% or higher for a major osteoporotic fracture, to prevent osteoporosis and reduce fracture risk. The patient does not meet the pharmacological treatment recommendations for prevention of osteoporosis. BD/Dexa Bone Density Study IMPRESSION: OSTEOPENIA. Recommend follow-up as clinically warranted. Reading Location: [id number]
== END | disposition home or self-care (01) ==
LOC: OPBD 13:20
PROVIDERS: PCP Internal Medicine; Referring Provider Internal Medicine; Visit Provider Internal Medicine
DX: Z78.0 Asymptomatic menopausal state (principal); M85.80 Other specified disorders of bone density and structure, unspecified site
CPT/HCPCS: 77080

== ENCOUNTER → 2025-04-22 | Outpatient (CLI) | payer MEDICARE, SELFPAY ==
[2025-04-22 12:51] LABS: Creatinine, Urine (random) 26.50 mg/dL (28.00-217.00); Protein, Urine (Random) < 6.0 mg/dL (0.0-12.0); Protein:Creat Ratio UNABLE TO CALCULATE mg/g CRE (0-200)
[2025-04-22 13:11] LABS: Anion Gap 13 (5-15); BUN 36 mg/dL (4-19); BUN/Creat Ratio 25.3 RATIO (10-20); Calcium,Total 10.7 mg/dL (7.6-11.0); Carbon Dioxide 23.3 mmol/L (21.0-32.0); Chloride 104 mmol/L (98-108); Glucose 138 mg/dL (70-99); Potassium 4.4 mmol/L (3.3-5.1)
== END | disposition home or self-care (01) ==
LOC: MTLAB 10:55
PROVIDERS: PCP Internal Medicine; Referring Provider Internal Medicine Nephrology; Visit Provider Internal Medicine Nephrology
DX: N18.32 Chronic kidney disease, stage 3b (principal)
CPT/HCPCS: 36415; 80048; 82570; 84156

== ENCOUNTER → 2025-05-11 | Outpatient (CLI) | payer MEDICARE, SELFPAY ==
--- NOTE | 2025-05-11 13:46 | CDU_ITS ---
Reason For Study Reason For Study: Lt ICA Stenosis Rt. Velocities/BP Lt. Velocities/BP Prox CCA 77.8/8.8 cm/sec. Prox CCA 76.4/11.6 cm/sec. Mid CCA 87.2/9.1 cm/sec. Mid CCA 52.7/13.4 cm/sec. Dist CCA 68.5/8.0 cm/sec. Dist CCA 199.3/28.3 cm/sec. Prox ICA 112.0/17.0 cm/sec. Prox ICA 273.1/45.5 cm/sec. Mid ICA 140.7/16.3 cm/sec. Mid ICA 139.4/15.2 cm/sec. Dist ICA 80.9/6.3 cm/sec. Dist ICA 83.9/11.4 cm/sec. Rt. ICA/CCA = 1.6. Lt. ICA/CCA = 5.2. Prox ECA 409.5/15.3 cm/sec. Prox ECA 416.2/0.0 cm/sec. Rt. Vert. 68.1/13.3 cm/sec. Lt. Vert. 63.0/9.0 cm/sec. Right Extracranial There is homogeneous, smooth atherosclerotic plaque noted in the right common carotid artery. There is heterogeneous, irregular atherosclerotic plaque noted in the right internal carotid artery. There is intimal thickening but no significant atherosclerotic plaque noted in the right external carotid artery. Antegrade flow is noted in the right vertebral artery. Left Extracranial There is heterogeneous, irregular atherosclerotic plaque noted in the left common carotid artery. There is heterogeneous, irregular atherosclerotic plaque noted in the left internal carotid artery. There is heterogeneous, irregular atherosclerotic plaque noted in the left external carotid artery. Antegrade flow is noted in the left vertebral artery. Procedure Carotid Duplex 17117. This is a Carotid Duplex examination using B-mode, color flow and specral Doppler. Exam performed in department. VL/Carotid Duplex Ultrasound Interpretation Summary Moderate (50-69%) stenosis right extracranial internal carotid. Severe (>70%) stenosis left extracranial internal carotid. Patent and antegrade vertebrals bilaterally. Ordering Physician: Louise Suarez Referring Physician: Louise Suarez Performed By: Elenita Finney and Student, RVT
--- NOTE | 2025-05-11 13:46 | CDU_ITS ---
Reason For Study Reason For Study: Lt ICA Stenosis Rt. Velocities/BP Lt. Velocities/BP Prox CCA 77.8/8.8 cm/sec. Prox CCA 76.4/11.6 cm/sec. Mid CCA 87.2/9.1 cm/sec. Mid CCA 52.7/13.4 cm/sec. Dist CCA 68.5/8.0 cm/sec. Dist CCA 199.3/28.3 cm/sec. Prox ICA 112.0/17.0 cm/sec. Prox ICA 273.1/45.5 cm/sec. Mid ICA 140.7/16.3 cm/sec. Mid ICA 139.4/15.2 cm/sec. Dist ICA 80.9/6.3 cm/sec. Dist ICA 83.9/11.4 cm/sec. Rt. ICA/CCA = 1.6. Lt. ICA/CCA = 5.2. Prox ECA 409.5/15.3 cm/sec. Prox ECA 416.2/0.0 cm/sec. Rt. Vert. 68.1/13.3 cm/sec. Lt. Vert. 63.0/9.0 cm/sec. Right Extracranial There is homogeneous, smooth atherosclerotic plaque noted in the right common carotid artery. There is heterogeneous, irregular atherosclerotic plaque noted in the right internal carotid artery. There is intimal thickening but no significant atherosclerotic plaque noted in the right external carotid artery. Antegrade flow is noted in the right vertebral artery. Left Extracranial There is heterogeneous, irregular atherosclerotic plaque noted in the left common carotid artery. There is heterogeneous, irregular atherosclerotic plaque noted in the left internal carotid artery. There is heterogeneous, irregular atherosclerotic plaque noted in the left external carotid artery. Antegrade flow is noted in the left vertebral artery. Procedure Carotid Duplex 14176. This is a Carotid Duplex examination using B-mode, color flow and specral Doppler. Exam performed in department. VL/Carotid Duplex Ultrasound Interpretation Summary Moderate (50-69%) stenosis right extracranial internal carotid. Severe (>70%) stenosis left extracranial internal carotid. Patent and antegrade vertebrals bilaterally. Ordering Physician: Louise Suarez Referring Physician: Louise Suarez Performed By: Elenita Finney and Student, RVT
== END | disposition home or self-care (01) ==
LOC: CVS 13:44
PROVIDERS: PCP Internal Medicine; Referring Provider Physician Assistant; Visit Provider Physician Assistant
DX: I65.22 Occlusion and stenosis of left carotid artery (principal)
CPT/HCPCS: 93880

== ENCOUNTER → 2025-05-20 | Outpatient (CLI) | payer MEDICARE, SELFPAY ==
[2025-05-20 13:07] LABS: AST(SGOT) 19 U/L (<=31); Alanine Aminotransfer ALT/SGPT 14 U/L (<=34); Albumin, Serum 3.9 g/dL (3.4-4.8); Alkaline Phosphatase 78 U/L (35-104); Bilirubin, Direct 0.39 mg/dL (0.00-0.30); Cholesterol 137 mg/dL (<=200); Globulin 3.6 g/dL (2.2-4.2); Low Density Lipoprotein Calc. 66 mg/dL; Triglycerides 139 mg/dL; Very Low Density Lipoprotein 28 mg/dL (5-40); cholesterol:hdl ratio screen 2.95
== END | disposition home or self-care (01) ==
LOC: MTLAB 09:04
PROVIDERS: PCP Internal Medicine; Referring Provider Physician Assistant Medical; Visit Provider Physician Assistant Medical
DX: E78.00 Pure hypercholesterolemia, unspecified (principal)
CPT/HCPCS: 36415; 80061; 80076

== ENCOUNTER → 2025-06-07 | Outpatient (CLI) | payer MEDICARE, SELFPAY ==
--- NOTE | 2025-06-07 14:10 | RAD_ITS ---
PROCEDURE: CERV SPINE 2 OR 3 VIEWS 06/07/2025 REASON FOR EXAM: SPONDYLOSIS TECHNIQUE: Procedure Code: RADSPCL Modality: DX Procedure: CERV SPINE 2 OR 3 VIEWS FINDINGS: No evidence of acute fracture or dislocation. Mild to moderate degenerative changes of the visualized spine. Vertebral body heights are maintained. Normal alignment. RAD/Cerv Spine 2 or 3 Views IMPRESSION: Spondylosis. Reading Location: [id number]
--- NOTE | 2025-06-07 14:10 | RAD_ITS ---
PROCEDURE: HIP, UNI W/ PELVIS 2-3 VIEWS 06/07/2025 REASON FOR EXAM: ARTHRITIS TECHNIQUE: Procedure Code: [facility] Modality: DX Procedure: HIP, UNI W/ PELVIS 2-3 VIEWS Laterality: FINDINGS: No evidence of acute fracture or dislocation. Moderate degenerative changes of the bilateral hips. Degenerative changes of the partially visualized spine. RAD/HIP, UNI W/ Pelvis 2-3 Views IMPRESSION: No acute osseous abnormalities. Moderate bilateral hip osteoarthrosis. Reading Location: [id number]
== END | disposition home or self-care (01) ==
LOC: RAD 13:57
PROVIDERS: PCP Internal Medicine; Referring Provider Anesthesiology Pain Medicine; Visit Provider Anesthesiology Pain Medicine
DX: M16.11 Unilateral primary osteoarthritis, right hip (principal); M47.9 Spondylosis, unspecified
CPT/HCPCS: 72040; 73502

== ENCOUNTER → 2025-06-15 | Outpatient (CLI) | payer MEDICARE, SELFPAY | END | disposition home or self-care (01) | LOC: SL 14:36 | PROVIDERS: PCP Internal Medicine; Referring Provider Nurse Practitioner Acute Care; Visit Provider Nurse Practitioner Acute Care | DX: G47.33 Obstructive sleep apnea (adult) (pediatric) (principal) | CPT/HCPCS: 98960; G0463 ==

== ENCOUNTER → 2025-07-11 | Outpatient (CLI) | payer MEDICARE, SELFPAY ==
[2025-07-11 09:38] LABS: Mucous, Urine 0 SEEN /hpf (<or=2+); Red Blood Cells-Urine 0 SEEN /hpf (0-5)
[2025-07-11 10:41] LABS: Hematocrit 39.6 % (37-47); Hemoglobin 13.5 g/dL (12.0-15.0); Immature Granulocytes Count 0.020 X10^3/uL (0.0-0.0); Mean Corp Hgb Conc 34.1 g/dL (32-36); Mean Corpuscular Volume 87.0 fL (81-99); Mean Platelet Vol. 10.4 fl (6.2-12.0); NRBC Flagged by Analyzer 0 % (0-5); Platelet Count 260 K/mm3 (150-450); RBC Distribution Width CV 13.5 % (11.6-14.6); RBC Distribution Width SD 42.9 fl (35.1-43.9); Red Blood Count 4.55 M/mm3 (4.2-5.4); White Blood Count 9.8 K/mm3 (4.4-11.0)
[2025-07-11 11:14] LABS: AST(SGOT) 16 U/L (<=31); Alanine Aminotransfer ALT/SGPT 11 U/L (<=34); Albumin, Serum 3.9 g/dL (3.4-4.8); Alkaline Phosphatase 84 U/L (35-104); Anion Gap 12 (5-15); BUN 34 mg/dL (4-19); BUN/Creat Ratio 26.5 RATIO (10-20); Calcium,Total 10.4 mg/dL (7.6-11.0); Carbon Dioxide 22.8 mmol/L (21.0-32.0); Chloride 104 mmol/L (98-108); Cholesterol 145 mg/dL (<=200); Globulin 3.6 g/dL (2.2-4.2); Glucose 124 mg/dL (70-99); Low Density Lipoprotein Calc. 71 mg/dL; Potassium 4.3 mmol/L (3.3-5.1); Triglycerides 132 mg/dL; Very Low Density Lipoprotein 26 mg/dL (5-40); Vitamin D,25 Hydroxy 82.5 ng/mL (30-100); cholesterol:hdl ratio screen 2.85
[2025-07-11 12:00] LABS: Color, Urine Yellow (Yellow); Glucose, Dipstick Normal (Normal); Ketone-Dipstick Negative (Negative); Leukocyte Esterase-Dipstick 100 /ul (Negative); Nitrite-Dipstick Negative (Negative); Occult Blood-Urine Negative /ul (Negative); Protein-Dipstick 30 mg/dl (Negative); Specific Gravity, Urine 1.010 (1.002-1.030); Urine Bilirubin Dipstick Negative (Negative)
[2025-07-11 12:26] LABS: Squamous Epithelial Cells - UA 0-5 SEEN /hpf (5-10)
[2025-07-11 12:58] LABS: Creatinine, Urine (random) 49.80 mg/dL (28.00-217.00); Microalbumin,Random Urine 45.5 mg/L (<20 mg/L)
== END | disposition home or self-care (01) ==
LOC: MTLAB 09:31
PROVIDERS: PCP Internal Medicine; Referring Provider Internal Medicine; Visit Provider Internal Medicine
DX: E11.9 Type 2 diabetes mellitus without complications (principal); E78.00 Pure hypercholesterolemia, unspecified; E55.9 Vitamin D deficiency, unspecified
CPT/HCPCS: 36415; 80053; 80061; 81001; 82043; 82306; 82570; 84443; 85025